=== PATIENT | female | born 1970 | race Caucasian/White ===

== ENCOUNTER 2022-02-05 12:57 | Emergency (ER) | payer OTHER, MEDICARE, SELFPAY ==
[2022-02-05 13:18] VITALS: BP 111/57; PULSE 78; RESP 16; TEMP 36.1; O2SAT 100; BMI 18.6
--- NOTE | 2022-02-05 13:53 | CRLHL7_ITS ---
For Patients: As a result of the Century Cures Act, medical imaging exams and procedure reports are released immediately into your electronic medical record. You may view this report before your referring provider. If you have questions, please contact your health care provider. Indication: Left lower extremity weakness Technique: Noncontrast head CT Comparison: No comparison Findings: Axial noncontrast images through the brain parenchyma demonstrates no acute intracranial hemorrhage or mass. No midline shift. No abnormal extra-axial air fluid collections are seen. Skull and scalp appears unremarkable. Impression: 1. No acute intracranial hemorrhage or mass. Please note that all CT scans at this facility use dose modulation, iterative reconstruction, and/or weight-based dosing when appropriate to reduce radiation dose to as low as reasonably achievable. Dictated by Silvina Eugene MD @ 02/05/2022 3:23:58 PM (Electronically Signed)
--- NOTE | 2022-02-05 13:53 | CRLHL7_ITS ---
For Patients: As a result of the Century Cures Act, medical imaging exams and procedure reports are released immediately into your electronic medical record. You may view this report before your referring provider. If you have questions, please contact your health care provider. INDICATION: Left lower extremity weakness. COMPARISON: None. TECHNIQUE: Sagittal T1, T2, and STIR sequences. Axial T1 and T2 weighted sequences. FINDINGS: Normal vertebral body alignment. No fractures. No vertebral body loss of height. No evidence injury. No suspicious osseous lesions. Normal conus terminates at L1. T12-L1 L1-2 L2-3: No spinal canal or neural foraminal narrowing. L3-4: Mild annular bulge. No narrowing of spinal canal. No neural foraminal narrowing. L4-5: Annular bulge. No narrowing of spinal canal. No neural foraminal narrowing. Mild facet arthropathy. L5-S1: Disc degeneration posterior disc bulge. No narrowing of spinal canal. No impingement of the traversing S1 nerve roots. Facet arthropathy contributes to mild narrowing of the left neural foramen. No narrowing of the right neural foramen. Mild facet arthropathy. 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 Degenerative changes of the SI joints. Normal paraspinal soft tissues. No retroperitoneal adenopathy. IMPRESSION: 1. Normal alignment. No fractures. 2. Mild lumbar spondylosis. 3. At L5-S1, mild narrowing of the left neuroforamen. 4. No spinal canal or neural foraminal narrowing at the remaining levels Dictated by Linden Hopper MD @ 02/05/2022 4:58:48 PM (Electronically Signed)
--- NOTE | 2022-02-05 14:42 | ED.GENADULT ---
HPI - General Adult General Time Seen by Provider: 14:00 Date Seen: 02/05/22 Chief complaint: Extremity Pain/Injury, Lower Stated complaint: Numb/limp left leg Time Seen by Provider: 02/05/22 13:36 Source: patient and family Mode of arrival: ambulatory Limitations: no limitations History of Present Illness HPI narrative: Carol is a very pleasant 51-year-old female with a history of peripheral neuropathy as well as possible stroke who comes to the emergency room for evaluation regarding weakness of the left leg. Upon further discussion patient notes that she has chronic peripheral neuropathy. On WednesdayJanuary 31 she began noticing that her left foot was occasionally dragging and that she had weakness that was new. She states that has progressively gotten worse and she has nearly tripped because of this. She actually notes that she has no pain in her foot which she usually does. She has chronically decreased sensation from the knees down bilaterally. She talked to her neurologist at the [facility] who told her to come to the emergency room. Carol notes no headache, head trauma. She has had some neck pain over the past few days but states that is not new for her. She denies any new upper extremity symptoms. No new loss of bowel or bladder control or recent falls. She has not had fever but has chronic chills. She really has no new back pain. Patient tells me that she has neuropathy secondary to a poor diet. However I do note in previous records that she had a history of alcoholism. She tells me that she has not had a drink in a year. It appears that she was developing hepato renal syndrome 1 year ago. She also had ascites at that time. Onset (ago): day(s) Location: left and lower extremity Radiation: non-radiation Associated symptoms: denies other symptoms Treatments prior to arrival: none Related Data Home Medications Medication Instructions Recorded Confirmed THC 02/05/22 levetiracetam 1,000 mg tablet mg PO 02/05/22 levothyroxine 50 mcg tablet mcg 02/05/22 magnesium oxide 400 mg (241.3 mg mg 02/05/22 magnesium) tablet melatonin 3 mg capsule 3 mg PO HS PRN 02/05/22 02/05/22 omeprazole 40 mg capsule,delayed mg 02/05/22 release pregabalin 50 mg capsule mg 02/05/22 rifaximin 550 mg tablet (Xifaxan) 550 mg PO BID 02/05/22 02/05/22 Allergies Allergy/AdvReac Type Severity Reaction Status Date / Time cephalexin Allergy Severe Anaphylaxis Unverified 02/05/22 13:18 [id number] Reductase Allergy Severe Unverified 02/05/22 13:18 Inhibitor Pertussis Vaccines Allergy Intermediate Unverified 02/05/22 13:18 Sulfa (Sulfonamide Allergy Intermediate Hives Verified 02/05/22 13:18 Antibiotics) latex Allergy Mild Rash Unverified 02/05/22 13:18 duloxetine Allergy Unknown Unverified 02/05/22 13:18 gabapentin AdvReac Mild Unverified 02/05/22 13:18 Review of Systems Status of ROS: Reports: 10 or more systems reviewed and unremarkable except as noted in History and below Narrative: Patient denies recent fever, cough cold congestion. She has not had any vomiting or diarrhea. [facility] Medical History (Updated 02/05/22 @ 17:32 by Sapna Quintana MD) Abdominal bloating Acute on chronic diastolic (congestive) heart failure Alcohol abuse Ataxia Bilateral myopia Cirrhosis of liver CKD (chronic kidney disease) stage 2, GFR 60-89 ml/min Coccyx pain Cyst, ovarian Dental decay Diffuse connective tissue disease Disturbance in sleep behavior Dysthymic disorder Ecchymosis Edentulous Essential hypertension Fibroid Fibromyalgia Folate deficiency Generalized anxiety disorder Generalized muscle weakness GERD (gastroesophageal reflux disease) Hemorrhage into subarachnoid space of neuraxis Hypertension Hypothyroidism Lipodystrophy Malnutrition MDD (major depressive disorder) Mediastinal lymphadenopathy Menorrhagia Metabolic encephalopathy Migraine Mixed anxiety and depressive disorder Myalgia and myositis Nicotine dependence Obstructive sleep apnea Occipital headache Partial anomalous pulmonary venous return Peripheral nerve disease Peripheral neuropathy Presbyopia Primary insomnia Right ventricular enlargement Sarcoidosis of lung with sarcoidosis of lymph nodes Secundum ASD Seizures, post-traumatic Sensory ganglionopathy Steatosis of liver Subdural hemorrhage Tachycardia Tear film insufficiency Thiamine deficiency neuropathy Tinea corporis Uterine leiomyoma Vitamin B12 deficiency Vitamin D deficiency Surgical History History of appendectomy Hx of hernia repair Social History Smoking Status: Current every day smoker What tobacco products do you use: cigarettes Do you use any of these nicotine containing products: None Second hand tobacco smoke exposure: Yes How often do you have a drink containing alcohol: never How often do you have six or more drinks on one occasion: Never AUDIT-C Alcohol total score: 0 Non-prescribed substance use: marijuana (any form) Non-prescribed substance use details: THC pills Exam Const: Vital Signs, click to edit/add: Vital Signs - 24 hr 02/05/22 13:18 02/05/22 15:25 02/05/22 16:00 Temperature 96.9 F L Pulse Rate [Right Pulse Oximeter] 78 70 67 Respiratory Rate 16 16 Blood Pressure [Le ft Upper Arm] 111/57 L 106/66 106/69 Pulse Oximetry 100 97 96 Documenting provider has reviewed patient's vital signs: yes Common normals: no apparent distress, oriented x3 and no limitations General appearance: cooperative and comfortable Nutritional appearance: thin HENMT: Common normals: normocephalic, head/scalp atraumatic and external ears normal Head and scalp: normocephalic and atraumatic External ear: external ears normal Other: Eyebrow raise smile and tongue all within normal limits no neurological deficits. Eye: Common normals: PERRL, EOMs intact bilaterally and conjunctivae normal General eye: normal appearance of both eyes Conjunctiva: conjunctiva(e) normal Pupil: PERRL Neck & C-Spine: Common normals: full ROM, no lymphadenopathy and supple Cervical spine: cervical ROM normal Lymph: Lymphatic: no lymphadenopathy noted Resp: Common normals: normal respiratory effort and clear to auscultation bilaterally Effort & inspection: able to speak in complete sentences Auscultation: clear to auscultation bilaterally Cardio: Common normals: regular rate and regular rhythm Rate: regular rate Rhythm: regular rhythm Heart sounds: murmur GI: Common normals: Normal to inspection, nondistended, normoactive bowel sounds present Back & Pelvis: Common normals: no thoracic nor lumbar tenderness Neuro: Common normals: oriented x3 Gait (neuro): unable to assess gait Sensory exam: extremities (Patient has decreased sensation on the lower legs bilaterally left greater ) Pupil exam: Normal pupillary reactivity/response: bilateral Other: Patient has slightly decreased hip flexion on the left but is able to raise her leg off the bed for 5 seconds. Extension and flexion intact of the lower extremities with very subtle decreased strength on the left at the ankle. patient has only 2 to 3+ strength with left dorsiflexion compared to the right DTRs at the knees 1+ absent at the ankles questionable 1 beat of clonus on the left Babinski downgoing upper extremity strength and motor intact with 1 to 2+ DTRs that are symmetrical. Psych: Common normals: thought process normal and speech normal Speech: normal speech Mood and affect: euthymic mood Thought process: normal thought process Insight: insight good Judgement: judgment good Skin: Trauma: no lacerations or abrasions Course Course Hospital Course: At this time patient presents with progressive weakness at the left ankle with markedly decreased left ankle Sampson flexion. Differential diagnosis includes stroke but is also includes a lumbar radiculopathy nutritional deficiency or spinal mass. We will obtain laboratory values to include a CBC, comprehensive panel, CRP and sed rate. I would also collect a urinalysis and obtain a head CT as well as lumbar MRI. Reevaluation(s) Reevaluation #1: Patient has been resting comfortably. At this time MRI of the lumbar spine does show degenerative disease but no significant compression of the L5 or S1 Which would explain her footdrop. We are attempting to contact her neurologist at the [facility]. Head CT without evidence of stroke. Time: 15:00 Reevaluation #2: At this time we have not heard from patient's neurologist. She is presenting with foot drop with out any L5 her S1 nerve root compromise noted on lumbar MRI. Her head CT is without evidence of acute stroke. As this has been a ongoing for at least 5 days I will allow the patient to go home. Would recommend follow-up with her neurologist and contacting them tomorrow as I suspect she will likely need EMG and further evaluation. If she has worsening or onset of new symptoms she will proceed directly to hospital where her specialists work. Of course she is always welcome to return to [facility]. Discussed also her pancytopenia. She does have a follow-up appointment with heme Onc in the next few weeks. She and her feel comfortable with our plan and will return as needed. Time: 17:57 Vital Signs Vital signs: Initial Vital Signs Temperature 96.9 F L 02/05/22 13:18 Temperature Source Temporal Artery Scan 02/05/22 13:18 Pulse Rate 78 02/05/22 13:18 Respiratory Rate 16 02/05/22 13:18 Blood Pressure 111/57 L 02/05/22 13:18 Blood Pressure Mean 75 02/05/22 13:18 Blood Pressure Position Supine 02/05/22 13:18 Pulse Oximetry 100 02/05/22 13:18 Oxygen Delivery Method 02/05/22 13:18 Vital Signs Temperature 96.9 F L 02/05/22 13:18 Pulse Rate 78 02/05/22 13:18 Respiratory Rate 16 02/05/22 13:18 Blood Pressure 111/57 L 02/05/22 13:18 Pulse Oximetry 100 02/05/22 13:18 Temperature 96.9 F L 02/05/22 13:18 Pulse Rate 67 02/05/22 16:00 Respiratory Rate 16 02/05/22 15:25 Blood Pressure 106/69 02/05/22 16:00 Pulse Oximetry 96 02/05/22 16:00 Medical Decision Making MDM Narrative Medical decision making narrative: At this time we have ruled out any evidence of stroke with a negative CT, ruled out nerve compromise with an MRI of the lumbar spine. Certainly this could be progression of her neuropathy although it is a symmetrical. I do not identify any red flag symptoms at this time and therefore patient will be discharged home. Medical Records Medical records reviewed: Yes I reviewed the patient's medical records Lab Data Lab results reviewed: Yes I reviewed the patient's lab results Labs: Lab Results 02/05/22 02/05/22 02/05/22 Range/Units 14:54 14:55 14:55 WBC 3.93 L (4.50-11.00) K/uL RBC 3.14 L (4.00-5.20) m/uL Hgb 9.9 L (12.0-16.0) gm/dL Hct 28.6 L (33.0-51.0) % MCV 91 (80-100) fL MCH 32 (26-34) pg MCHC 35 (32-36) gm/dL RDW Coeff of Susanna 13.8 (11.5-15.5) % Plt Count 96 L (140-440) K/uL Neut % (Auto) 49.9 (42.0-72.0) % Lymph % (Auto) 40.5 (20-44) % Mellette % (Auto) 6.6 (0.0-11.0) % Eos % (Auto) 2.5 (0.0-7.0) % Baso % (Auto) 0.0 (0.0-3.0) % Neut # (Auto) 2.00 (1.7-7.0) K/uL Lymph # (Auto) 1.60 (0.90-2.90) K/uL Mellette # (Auto) 0.30 (0.00-0.90) K/UL Eos # (Auto) 0.10 (0.00-0.50) K/uL Baso # (Auto) 0.00 (0.00-0.30) K/uL Abs Immat Gran (auto) 0.02 (0.00-0.30) K/uL ESR 7 (2-20) mm/hr Sodium 139 (135-149) mmol/L Potassium 3.9 (3.6-5.1) mmol/L Chloride 111 (96-114) mmol/L Carbon Dioxide 24 (20-32) mmol/L BUN 16 (7-30) mg/dL Creatinine 0.9 (0.5-1.5) mg/dL Estimated Creat Clear 60.49 Glucose 105 (60-115) mg/dL Calcium 9.2 (8.4-10.6) mg/dL Total Bilirubin 3.3 H (0.1-1.5) mg/dL AST 45 H (12-35) U/L ALT 20 (4-35) U/L Alkaline Phosphatase 89 (40-150) U/L C-Reactive Protein < 0.5 L (0.5-1.0) mg/dL Total Protein 6.6 (6.0-8.3) g/dL Albumin 3.9 (3.3-5.0) g/dL Imaging Data MRI: Attestation: I have reviewed the pertinent imaging results. My impression: MRI LUMBAR SPINE WITHOUT CONTRAST Radiologist's impression: MRI SHOWS NO SIGNIFICANT NERVE ROOT COMPRESSION OF L5 OR S1. CT scan - head: Attestation: I have reviewed the pertinent imaging results. My impression: NO EVIDENCE OF ACUTE INTRACRANIAL BLEED. Radiologist's impression: NEGATIVE FOR STROKE HER ACUTE INTRACRANIAL BLEED. Discharge Plan Discharge Clinical Impression: Pancytopenia, Foot-drop Condition: Unchanged Additional Instructions: follow-up with your primary MD for ongoing attention to your blood counts. Your hemoglobin was 9.9 today and platelets were 96,000. your white count was 3.93. Contact your neurologist tomorrow to let them know that you have left foot drop. May need further evaluation and/or and EMG. Proceed to the [facility] for worsening symptoms or return to the emergency room in [place] as needed. Activity Level: Activity as Tolerated Prescriptions: No Action omeprazole 40 mg capsule,delayed release(DR/EC) 0RF magnesium oxide 400 mg (241.3 mg magnesium) tablet 0RF levothyroxine 50 mcg tablet 0RF pregabalin 50 mg capsule 0RF levetiracetam 1,000 mg tablet PO 0RF Xifaxan 550 mg tablet 550 mg PO BID 0RF melatonin 3 mg capsule 3 mg PO HS PRN0RF THC 0RF Stand Alone Forms: [facility] Info Instructions
[2022-02-05 15:10] LABS: Eosinophils Percent Auto 2.5 % (0.0-7.0); Hematocrit 28.6 % (33.0-51.0); Hemoglobin* 9.9 gm/dL (12.0-16.0); Immature Granulocytes Abs Auto 0.02 K/uL (0.00-0.30); Lymphocytes Percent Auto 40.5 % (20-44); Mean Corpuscular HGB Conc 35 gm/dL (32-36); Mean Corpuscular Hemoglobin 32 pg (26-34); Mean Corpuscular Volume 91 fL (80-100); Monocytes Percent Auto 6.6 % (0.0-11.0); Neutrophils Percent Auto 49.9 % (42.0-72.0); Platelet Count* 96 K/uL (140-440); RDW Coefficient of Variation % 13.8 % (11.5-15.5); Red Blood Count 3.14 m/uL (4.00-5.20); White Blood Count* 3.93 K/uL (4.50-11.00)
[2022-02-05 15:13] LABS: Slide Review Reflex No
[2022-02-05 15:25] VITALS: BP 106/66; PULSE 70; RESP 16; O2SAT 97
[2022-02-05 15:27] LABS: Albumin* 3.9 g/dL (3.3-5.0); Chloride* 111 mmol/L (96-114); Sodium* 139 mmol/L (135-149)
[2022-02-05 15:28] LABS: Potassium* 3.9 mmol/L (3.6-5.1)
[2022-02-05 15:30] LABS: Creatinine* 0.9 mg/dL (0.5-1.5); Est. Creatinine Clearance* 60.49; Estimated Glomerular Filt Rate 76.92
[2022-02-05 15:31] LABS: Alanine Aminotransferase* 20 U/L (4-35); Alkaline Phosphatase* 89 U/L (40-150); Aspartate Amino Transferase* 45 U/L (12-35); Bilirubin Total* 3.3 mg/dL (0.1-1.5); Blood Urea Nitrogen* 16 mg/dL (7-30); Carbon Dioxide* 24 mmol/L (20-32); Glucose* 105 mg/dL (60-115); Total Protein* 6.6 g/dL (6.0-8.3)
[2022-02-05 15:32] LABS: Calcium* 9.2 mg/dL (8.4-10.6)
[2022-02-05 16:00] VITALS: BP 106/69; PULSE 67; O2SAT 96
[2022-02-05 16:13] LABS: C Reactive Protein* < 0.5 mg/dL (0.5-1.0)
[2022-02-05 16:27] LABS: Erythrocyte SedimentationRate* 7 mm/hr (2-20)
[2022-02-05 17:30] VITALS: BP 100/64
[2022-02-05 18:14] VITALS: BP 100/64; RESP 16
== END 2022-02-05 18:15 ==
PROVIDERS: Emergency Provider Family Medicine
DX: M21.372 Foot drop, left foot (principal); D61.818 Other pancytopenia
CPT/HCPCS: 36415; 70450; 72148; 80053; 85025; 85651; 86140; 99284; 99285

== ENCOUNTER 2022-05-12 07:49 | Emergency (ER) | payer OTHER, MEDICARE, SELFPAY ==
[2022-05-12 08:08] VITALS: BP 123/83; PULSE 74; RESP 18; TEMP 36; O2SAT 98; BMI 18.4
--- NOTE | 2022-05-12 08:31 | CRLHL7_ITS ---
For Patients: As a result of the Cures Act, medical imaging exams and procedure reports are released immediately into your electronic medical record. You may view this report before your referring provider. If you have questions, please contact your health care provider. Indication: Redness, rule out fracture Comparison: None available. Technique: AP, lateral, and oblique views right great toe were obtained. Findings: There is no displaced fracture or dislocation. There is marked hallux deformity of the 1st digit with moderate bunion formation. There is fusiform soft tissue swelling with demonstration of a radiopaque metallic foreign body within the plantar medial soft tissues. Impression: Demonstration of a radiopaque metallic foreign body within the plantar soft tissues projecting over the proximal 1st phalanx with associated soft tissue swelling. No evidence of displaced fracture. Dictated by Mike Wayne MD @ 05/12/2022 9:18:05 AM (Electronically Signed)
--- NOTE | 2022-05-12 09:55 | ED.LOWEXIN ---
HPI - Extremity Injury (Lower) General Date Seen: 05/12/22 Chief Complaint: Extremity Pain/Injury, Lower Stated Complaint: Toe infection Time Seen by Provider: 05/12/22 07:55 Source: patient and family Mode of arrival: ambulatory Limitations: no limitations History of Present Illness HPI Narrative: Patient is a very nice 51-year-old female who presents here with right great toe discomfort, and redness. She thinks she may have an infection. This is been for last 4-5 days, she has have a history of neuropathy, can not really feel her toe, she does not remember getting anything in her foot, no history of trauma, she has had no fevers chills or sweats, or anything else. She has not seen anyone, for this. Related Data Home Medications Medication Instructions Recorded Confirmed THC 02/05/22 levetiracetam 1,000 mg tablet mg PO 02/05/22 levothyroxine 50 mcg tablet mcg 02/05/22 magnesium oxide 400 mg (241.3 mg mg 02/05/22 magnesium) tablet melatonin 3 mg capsule 3 mg PO HS PRN 02/05/22 02/05/22 omeprazole 40 mg capsule,delayed mg 02/05/22 release pregabalin 50 mg capsule mg 02/05/22 rifaximin 550 mg tablet (Xifaxan) 550 mg PO BID 02/05/22 02/05/22 Previous Rx's Medication Instructions Recorded amoxicillin 875 mg-potassium 1 tab PO BID #20 tabs 05/12/22 clavulanate 125 mg tablet Allergies Allergy/AdvReac Type Severity Reaction Status Date / Time cephalexin Allergy Severe Anaphylaxis Unverified 02/05/22 13:18 Eztpsau-[id number] Reductase Allergy Severe Unverified 02/05/22 13:18 Inhibitor Pertussis Vaccines Allergy Intermediate Unverified 02/05/22 13:18 Sulfa (Sulfonamide Allergy Intermediate Hives Verified 02/05/22 13:18 Antibiotics) latex Allergy Mild Rash Unverified 02/05/22 13:18 duloxetine Allergy Unknown Unverified 02/05/22 13:18 gabapentin AdvReac Mild Unverified 02/05/22 13:18 Review of Systems Status of ROS: Reports: 6 or more systems reviewed and unremarkable except as noted in History and below [facility] Medical History Abdominal bloating Acute on chronic diastolic (congestive) heart failure Alcohol abuse Ataxia Bilateral myopia Cirrhosis of liver CKD (chronic kidney disease) stage 2, GFR 60-89 ml/min Coccyx pain Cyst, ovarian Dental decay Diffuse connective tissue disease Disturbance in sleep behavior Dysthymic disorder Ecchymosis Edentulous Essential hypertension Fibroid Fibromyalgia Folate deficiency Generalized anxiety disorder Generalized muscle weakness GERD (gastroesophageal reflux disease) Hemorrhage into subarachnoid space of neuraxis Hypertension Hypothyroidism Lipodystrophy Malnutrition MDD (major depressive disorder) Mediastinal lymphadenopathy Menorrhagia Metabolic encephalopathy Migraine Mixed anxiety and depressive disorder Myalgia and myositis Nicotine dependence Obstructive sleep apnea Occipital headache Partial anomalous pulmonary venous return Peripheral nerve disease Peripheral neuropathy Presbyopia Primary insomnia Right ventricular enlargement Sarcoidosis of lung with sarcoidosis of lymph nodes Secundum ASD Seizures, post-traumatic Sensory ganglionopathy Steatosis of liver Subdural hemorrhage Tachycardia Tear film insufficiency Thiamine deficiency neuropathy Tinea corporis Uterine leiomyoma Vitamin B12 deficiency Vitamin D deficiency Surgical History History of appendectomy Hx of hernia repair Social History Smoking Status: Current every day smoker What tobacco products do you use: cigarettes Do you use any of these nicotine containing products: None Second hand tobacco smoke exposure: Yes How often do you have a drink containing alcohol: never How often do you have six or more drinks on one occasion: Never AUDIT-C Alcohol total score: 0 Non-prescribed substance use: marijuana (any form) Non-prescribed substance use details: THC pills Exam Narrative: Exam Narrative: On examination she is a nice lady, no apparent distress, her right great toe shows some redness around her nail, with obvious onychogryphosis. The nail is lifting up, there is no tenderness over the proximal part of the great toe, or onto the ball of foot, she does have some issues with osteoarthritis of her right foot and to a greater extent her left foot, were toes are curling up, and she is walking on her metatarsal heads. Her pulses are normal, sensations normal, the redness extends around the nail bed itself, but really no evidence of any purulence or anything that we can [place] or drain. Const: Vital Signs, click to edit/add: Vital Signs - 24 hr 05/12/22 08:08 Temperature 96.8 F L Pulse Rate [Pulse Oximeter] 74 Respiratory Rate 18 Blood Pressure [Ri ght Upper Arm] 123/83 Pulse Oximetry 98 Oxygen Delivery Me thod Room Air Course Vital Signs Vital signs: Initial Vital Signs Temperature 96.8 F L 05/12/22 08:08 Temperature Source Temporal Artery Scan 05/12/22 08:08 Pulse Rate 74 05/12/22 08:08 Respiratory Rate 18 05/12/22 08:08 Blood Pressure 123/83 05/12/22 08:08 Blood Pressure Mean 96 05/12/22 08:08 Blood Pressure Position Sitting 05/12/22 08:08 Pulse Oximetry 98 05/12/22 08:08 Oxygen Delivery Method 05/12/22 08:08 Vital Signs Temperature 96.8 F L 05/12/22 08:08 Pulse Rate 74 05/12/22 08:08 Respiratory Rate 18 05/12/22 08:08 Blood Pressure 123/83 05/12/22 08:08 Pulse Oximetry 98 05/12/22 08:08 Oxygen Delivery Method 05/12/22 08:08 Temperature 96.8 F L 05/12/22 08:08 Pulse Rate 74 05/12/22 08:08 Respiratory Rate 18 05/12/22 08:08 Blood Pressure 123/83 05/12/22 08:08 Pulse Oximetry 98 05/12/22 08:08 Oxygen Delivery Method 05/12/22 08:08 MDM - Extremity Injury (Lower) MDM Narrative Medical decision making narrative: Differential diagnosis here includes infection, such as cellulitis, onchogryphosis, foreign body, Medical Records Attestation: I reviewed the patient's medical records. Imaging Data Toe x-ray: Attestation: I have reviewed the pertinent imaging results. My impression: There appears to be no evidence of fracture, or osteomyelitis, there is evidence of a foreign body,, that she is outside the area redness or tenderness. Radiologist's impression: Patient: RONALD RICE MELLO Facility: [facility] Site . Site : [id number] Study: XRay Extremity Right GREAT TOE 3 VIEWS, PORTABLE-05/12/2022 8:55:22 AM Ordering Physician: Seper Branden Final Report: Indication: Redness, rule out fracture Comparison: None available. Technique: AP, lateral, and oblique views right great toe were obtained. Findings: There is no displaced fracture or dislocation. There is marked hallux deformity of the 1st digit with moderate bunion formation. There is fusiform soft tissue swelling with demonstration of a radiopaque metallic foreign body within the plantar medial soft tissues. Impression: Demonstration of a radiopaque metallic foreign body within the plantar soft tissues projecting over the proximal 1st phalanx with associated soft tissue swelling. No evidence of displaced fracture. Dictated by Mike Wayne MD @ 05/12/2022 9:18:05 AM (Electronic Signature) Discharge Plan Discharge Clinical Impression: History of neuropathy, Fungal infection of toenail, Foreign body (FB) in soft tissue, Infection of toe Patient Disposition: Home w/ Parent or Adult Condition: Stable Additional Instructions: Home rest use of antibiotics as directed, follow-up in a reasonable part-time with Dr. Hines , over at the [facility], he has a fiber optic assembly worker, and deals with this. Increasing redness coming up your leg, other issues, then come back, I think the foreign body is been there for a while. Please schedule a follow up appointment at the [facility] within the week. Let the answering patient scheduler know you need to follow up with a funding specialist. [facility] [address] [place] [address] Prescriptions: New amoxicillin-pot clavulanate 875-125 mg tablet 1 tab PO BID Qty: 20 0RF Rx Instructions: toe infection, has taken amoxicillin without a problem in the past No Action omeprazole 40 mg capsule,delayed release(DR/EC) magnesium oxide 400 mg (241.3 mg magnesium) tablet levothyroxine 50 mcg tablet pregabalin 50 mg capsule levetiracetam 1,000 mg tablet PO Xifaxan 550 mg tablet 550 mg PO BID melatonin 3 mg capsule 3 mg PO HS PRN THC Follow Up/Referrals: Provider,Not a Local [Primary Care Provider] - Lg Hines DPM [Staff Physician] - Stand Alone Forms: [facility] Info Instructions
== END 2022-05-12 09:55 | disposition home or self-care (01) ==
PROVIDERS: Emergency Provider Family Medicine
DX: B35.1 Tinea unguium (principal); M79.5 Residual foreign body in soft tissue; G62.9 Polyneuropathy, unspecified
CPT/HCPCS: 73660; 99283

== ENCOUNTER 2023-09-11 12:18 | Emergency (ER) | payer BC, MEDICARE, SELFPAY ==
[2023-09-11 12:35] VITALS: BP 117/79; PULSE 83; RESP 18; TEMP 36.6; O2SAT 99; BMI 18.8
--- NOTE | 2023-09-11 13:41 | CRLHL7_ITS ---
For Patients: As a result of the Century Cures Act, medical imaging exams and procedure reports are released immediately into your electronic medical record. You may view this report before your referring provider. If you have questions, please contact your health care provider. INDICATION: Fall, loss of consciousness. COMPARISON: 02/05/2022. TECHNIQUE: Noncontrast CT head. FINDINGS: Mild scalp swelling adjacent to the right frontal calvarium likely secondary to trauma. No underlying fracture. Normal brain parenchymal morphology. No acute intracranial hemorrhage, acute infarct, focal edema, mass effect, or fracture. No midline shift. No abnormal ventricular dilatation. Normal calvarium and skull base. Visualized paranasal sinuses and mastoid air cells are clear. Normal orbits bilaterally. IMPRESSION: 1. No acute intracranial abnormality. Please note that all CT scans at this facility use dose modulation, iterative reconstruction, and/or weight-based dosing when appropriate to reduce radiation dose to as low as reasonably achievable. Dictated by Linden Hopper MD @ 09/11/2023 2:01:55 PM (Electronically Signed)
--- NOTE | 2023-09-11 13:41 | ED_ITS ---
HPI - General Adult General Chief complaint: Head Injury/Pain Stated complaint: fall, bump on head Time Seen by Provider: 09/11/23 12:48 History of Present Illness HPI narrative: This 53-year-old female comes in reporting head injury from a fall that occurred prior to arrival. She states that she does not remember how things happened and thinks that she might have tripped on something. She fell forward and hit the right front of her forehead on the floor. She was able to get up after this event. She does have a small hematoma with some erythema on her forehead but no sign of skin injury otherwise. As she has not had any vomiting and does not complain of headache. She is not on any anticoagulants. Related Data Home Medications Medication Instructions Recorded Confirmed THC 02/05/22 09/11/23 levetiracetam 1,000 mg tablet 1,000 mg PO Q12H 02/05/22 09/11/23 levothyroxine 50 mcg tablet 50 mcg .Route .COMPLEX 02/05/22 09/11/23 magnesium oxide 400 mg (241.3 mg 400 mg 02/05/22 magnesium) tablet melatonin 3 mg capsule 3 mg PO HS PRN 02/05/22 09/11/23 omeprazole 40 mg capsule,delayed 40 mg 02/05/22 release pregabalin 50 mg capsule 50 mg Q12H 02/05/22 rifaximin 550 mg tablet (Xifaxan) 550 mg PO BID 02/05/22 09/11/23 Repatha Syringe 09/11/23 folic acid 400 mcg tablet 0.4 mg PO DAILY 09/11/23 09/11/23 Previous Rx's Medication Instructions Recorded amoxicillin 875 mg-potassium 1 tab PO BID #20 tabs 05/12/22 clavulanate 125 mg tablet Allergies Allergy/AdvReac Type Severity Reaction Status Date / Time cephalexin Allergy Severe Anaphylaxis Unverified 02/05/22 13:18 [id number]-[id number]-ByK Reductase Allergy Severe Unverified 02/05/22 13:18 Inhibitor Pertussis Vaccines Allergy Intermediate Unverified 02/05/22 13:18 Sulfa (Sulfonamide Allergy Intermediate Hives Verified 02/05/22 13:18 Antibiotics) latex Allergy Mild Rash Unverified 02/05/22 13:18 duloxetine Allergy Unknown Unverified 02/05/22 13:18 gabapentin AdvReac Mild Unverified 02/05/22 13:18 Review of Systems Status of ROS: Reports: 10 or more systems reviewed and unremarkable except as noted in History and below Narrative: Constitutional: No fevers, no weight gain or loss. Eyes: No discharge. No vision changes. HENT: No congestion, no sore throat, no ear pain. Cardiovascular: No chest pain, no palpitations. Respiratory: No shortness of breath, no wheezes, no cough. Gastrointestinal: No abdominal pain, no vomiting, no diarrhea. Genitourinary: No dysuria, no hematuria. Musculoskeletal: Normal range of motion. Skin: No rashes, no pruritis. Neurological: No dizziness, weakness, sensory change, speech change. Endo/Heme/Allergies: No bruising or bleeding. No polydipsia. Pysch: no suicidality, no anxiety, no insomnia. All other systems reviewed and are negative. [facility] Medical History CKD (chronic kidney disease) stage 2, GFR 60-89 ml/min ?N18.2 - Chronic kidney disease, stage 2 (mild) (ICD-10) Ecchymosis ?R58 - Hemorrhage, not elsewhere classified (ICD-10) Subdural hemorrhage ?I62.00 - Nontraumatic subdural hemorrhage, unspecified (ICD-10) Seizures, post-traumatic ?R56.1 - Post traumatic seizures (ICD-10) Tachycardia ?R00.0 - Tachycardia, unspecified (ICD-10) Abdominal bloating ?R14.0 - Abdominal distension (gaseous) (ICD-10) Acute on chronic diastolic (congestive) heart failure ?I50.33 - Acute on chronic diastolic (congestive) heart failure (ICD-10) Cirrhosis of liver ?K74.60 - Unspecified cirrhosis of liver (ICD-10) Metabolic encephalopathy ?G93.41 - Metabolic encephalopathy (ICD-10) Edentulous ?K08.109 - Complete loss of teeth, unspecified cause, unspecified class (ICD- 10) Mixed anxiety and depressive disorder ?F41.8 - Other specified anxiety disorders (ICD-10) Generalized muscle weakness ?M62.81 - Muscle weakness (generalized) (ICD-10) Primary insomnia ?F51.01 - Primary insomnia (ICD-10) Lipodystrophy ?E88.1 - Lipodystrophy, not elsewhere classified (ICD-10) Tinea corporis ?B35.4 - Tinea corporis (ICD-10) Vitamin B12 deficiency ?E53.8 - Deficiency of other specified B group vitamins (ICD-10) Folate deficiency ?E53.8 - Deficiency of other specified B group vitamins (ICD-10) Diffuse connective tissue disease ?M35.9 - Systemic involvement of connective tissue, unspecified (ICD-10) Uterine leiomyoma ?D25.9 - Leiomyoma of uterus, unspecified (ICD-10) Hemorrhage into subarachnoid space of neuraxis ?I60.9 - Nontraumatic subarachnoid hemorrhage, unspecified (ICD-10) Steatosis of liver ?K76.0 - Fatty (change of) liver, not elsewhere classified (ICD-10) Peripheral nerve disease ?G62.9 - Polyneuropathy, unspecified (ICD-10) Cyst, ovarian ?N83.209 - Unspecified ovarian cyst, unspecified side (ICD-10) Obstructive sleep apnea ?G47.33 - Obstructive sleep apnea (adult) (pediatric) (ICD-10) Migraine ?G43.909 - Migraine, unspecified, not intractable, without status migrainosus (ICD-10) Hypertension ?I10 - Essential (primary) hypertension (ICD-10) Occipital headache ?R51.9 - Headache, unspecified (ICD-10) GERD (gastroesophageal reflux disease) ?K21.9 - Gastro-esophageal reflux disease without esophagitis (ICD-10) Disturbance in sleep behavior ?G47.9 - Sleep disorder, unspecified (ICD-10) MDD (major depressive disorder) ?F32.9 - Major depressive disorder, single episode, unspecified (ICD-10) Alcohol abuse ?F10.10 - Alcohol abuse, uncomplicated (ICD-10) Mediastinal lymphadenopathy ?R59.0 - Localized enlarged lymph nodes (ICD-10) Sensory ganglionopathy ?G54.9 - Nerve root and plexus disorder, unspecified (ICD-10) Secundum ASD ?Q21.1 - Atrial septal defect (ICD-10) Right ventricular enlargement ?I51.7 - Cardiomegaly (ICD-10) 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 - Partial anomalous pulmonary venous connection (ICD-10) Menorrhagia ?N92.0 - Excessive and frequent menstruation with regular cycle (ICD-10) 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 - Dry beriberi (ICD-10) Tear film insufficiency ?H04.129 - Dry eye syndrome of unspecified lacrimal gland (ICD-10) Presbyopia ?H52.4 - Presbyopia (ICD-10) Bilateral myopia ?H52.13 - Myopia, bilateral (ICD-10) Hypothyroidism ?E03.9 - Hypothyroidism, unspecified (ICD-10) Dental decay ?K02.9 - Dental caries, unspecified (ICD-10) Fibroid ?D21.9 - Benign neoplasm of connective and other soft tissue, unspecified (ICD-10) Vitamin D deficiency ?E55.9 - Vitamin D deficiency, unspecified (ICD-10) Coccyx pain ?M53.3 - Sacrococcygeal disorders, not elsewhere classified (ICD-10) Essential hypertension ?I10 - Essential (primary) hypertension (ICD-10) Dysthymic disorder ?F34.1 - Dysthymic disorder (ICD-10) Generalized anxiety disorder ?F41.1 - Generalized anxiety disorder (ICD-10) Malnutrition ?E46 - Unspecified protein-calorie malnutrition (ICD-10) Myalgia and myositis Fibromyalgia ?M79.7 - Fibromyalgia (ICD-10) Nicotine dependence ?F17.200 - Nicotine dependence, unspecified, uncomplicated (ICD-10) Ataxia ?R27.0 - Ataxia, unspecified (ICD-10) Sarcoidosis of lung with sarcoidosis of lymph nodes ?D86.2 - Sarcoidosis of lung with sarcoidosis of lymph nodes (ICD-10) Peripheral neuropathy ?G62.9 - Polyneuropathy, unspecified (ICD-10) Surgical History Hx of hernia repair ?Z98.890 - Other specified postprocedural states (ICD-10) ?Z87.19 - Personal history of other diseases of the digestive system (ICD-10) History of appendectomy ?Z90.49 - Acquired absence of other specified parts of digestive tract (ICD- 10) Social History Smoking Status: Current every day smoker What tobacco products do you use: cigarettes Do you use any of these nicotine containing products: None Second hand tobacco smoke exposure: Yes How often do you have a drink containing alcohol: never How often do you have six or more drinks on one occasion: Never AUDIT-C Alcohol total score: 0 Non-prescribed substance use: marijuana (any form) Non-prescribed substance use details: THC pills service: No Exam Narrative: Exam Narrative: Constitutional: Well-developed, well-nourished, no acute distress. HEENT: Small hematoma in the right forehead with no fluctuance. The skull beneath this area is easily palpable. Neck: Normal range of motion. Nontender. Supple. Heart: Regular. No murmurs. Normal rate. Intact distal pulses. Lungs: Clear to auscultation. No chest discomfort. No wheezes, rhonchi, or rales. Abdomen: Normal bowel sounds. Nontender. No rebound tenderness. Genitalia: Deferred. Back: No midline tenderness. Normal range of motion. Extremities: Normal range of motion. No injury. Skin: Intact. No rash. Warm. No erythema or pallor. Neurologic: No altered sensation. No weakness. Alert and oriented. Psychiatric: No suicidality. No anxiety or depression. No insomnia. Nursing notes and vitals signs are reviewed. Const: Vital Signs, click to edit/add: Vital Signs - 24 hr 09/11/23 12:35 Temperature 97.9 F Pulse Rate [Right Pulse Oximeter] 83 Respiratory Rate 18 Blood Pressure [Ri ght Upper Arm] 117/79 Pulse Oximetry 99 Oxygen Delivery Me thod Room Air Course Vital Signs Vital signs: Initial Vital Signs Temperature 97.9 F 09/11/23 12:35 Temperature Source Temporal Artery Scan 09/11/23 12:35 Pulse Rate 83 09/11/23 12:35 Respiratory Rate 18 09/11/23 12:35 Blood Pressure 117/79 09/11/23 12:35 Blood Pressure Mean 91 09/11/23 12:35 Blood Pressure Position Sitting 09/11/23 12:35 Pulse Oximetry 99 09/11/23 12:35 Oxygen Delivery Method Room Air 09/11/23 12:35 Vital Signs Temperature 97.9 F 09/11/23 12:35 Pulse Rate 83 09/11/23 12:35 Respiratory Rate 18 09/11/23 12:35 Blood Pressure 117/79 09/11/23 12:35 Pulse Oximetry 99 09/11/23 12:35 Oxygen Delivery Method Room Air 09/11/23 12:35 Temperature 97.9 F 09/11/23 12:35 Pulse Rate 83 09/11/23 12:35 Respiratory Rate 18 09/11/23 12:35 Blood Pressure 117/79 09/11/23 12:35 Pulse Oximetry 99 09/11/23 12:35 Oxygen Delivery Method Room Air 09/11/23 12:35 Medical Decision Making MDM Narrative Medical decision making narrative: This patient comes in reporting head injury as described above. She is not showing any sign of neurologic deficit and has no nausea or vomiting and no significant headache. She does have a small hematoma on her forehead. She is not on anticoagulants. A CT scan of the head is obtained and returns with no a cute intracranial abnormality. This was reassuring to the patient. She is okay to be discharged home and encouraged to use [id number] medicines as needed and directed. Imaging Data CT scan - head: Radiologist's impression: No acute intracranial abnormality. Discharge Plan Discharge Clinical Impression: Concussion with loss of consciousness Patient Disposition: Home, Self-Care Condition: Stable Additional Instructions: Increase activity as tolerated. Use [id number] medicines as needed and directed. Follow up with MD return if worsening. Prescriptions: No Action omeprazole 40 mg capsule,delayed release(DR/EC) 40 mg magnesium oxide 400 mg (241.3 mg magnesium) tablet 400 mg levothyroxine 50 mcg tablet 50 mcg .ROUTE .COMPLEX Rx Instructions: as prescribed pregabalin 50 mg capsule 50 mg Q12H levetiracetam 1,000 mg tablet 1,000 mg PO Q12H Xifaxan 550 mg tablet 550 mg PO BID melatonin 3 mg capsule 3 mg PO HS PRN (DME) THC See Rx Instructions .ROUTE .MEDSUPPLY Rx Instructions: as prescribed amoxicillin-pot clavulanate 875-125 mg tablet 1 tab PO BID Qty: 20 0RF Rx Instructions: toe infection, has taken amoxicillin without a problem in the past Repatha Syringe folic acid 400 mcg tablet 0.4 mg PO DAILY Follow Up/Referrals: Rio Jaquez MD [Primary Care Provider] - Stand Alone Forms: MyHealth Info Instructions
== END 2023-09-11 14:17 | disposition home or self-care (01) ==
PROVIDERS: Emergency Provider Emergency Medicine Emergency Medical Services
DX: S06.0X1A Concussion with loss of consciousness of 30 minutes or less, initial encounter (principal); W01.0XXA Fall on same level from slipping, tripping and stumbling without subsequent striking against object, initial encounter
CPT/HCPCS: 70450; 99283; 99284

== ENCOUNTER 2024-02-08 22:40 | Outpatient (CLI) | payer BC, MEDICARE, SELFPAY | END 2024-02-08 22:41 | disposition home or self-care (01) | LOC: AMB 02-14 17:44 | PROVIDERS: Visit Provider Emergency Medicine | DX: R55 Syncope and collapse (principal) | CPT/HCPCS: A0425; A0427 ==

== ENCOUNTER 2024-05-14 16:45 | Emergency (ER) | payer BC, MEDICARE, SELFPAY ==
[2024-05-14 17:13] VITALS: BP 123/78; RESP 18; TEMP 36.7; O2SAT 97; BMI 18.4
--- NOTE | 2024-05-14 18:24 | CRLHL7_ITS ---
For Patients: As a result of the Century Cures Act, medical imaging exams and procedure reports are released immediately into your electronic medical record. You may view this report before your referring provider. If you have questions, please contact your health care provider. Indication: ABD PAIN WORSE ON THE ERIGHT SIDE, HISTORY OF CIRRHOSI Technique: CT Abdomen/Pelvis W/ 56CC ISOVUE [id number] Please note that all CT scans at this facility use dose modulation, iterative reconstruction, and/or weight-based dosing when appropriate to reduce radiation dose to as low as reasonably achievable. Comparison: Ultrasound 12/02/2020 Findings: Mild areas of dependent scarring/atelectasis in both lung bases. No pleural effusion. Somewhat lobular contour of the liver along with decreased echotexture. Water attenuation cyst in the right hepatic lobe posterior segment measures 7.5 millimeters. Subcentimeter cyst is present more centrally within the right hepatic lobe. Splenomegaly with the spleen measuring 12.9 cm. Adrenal glands normal. No hydronephrosis. No pancreatic calcifications. Mild ectasia of the distal pancreatic duct. The gallbladder is moderately distended without calcified gallstones or biliary obstruction. Incomplete distension of the stomach results in some prominence of the gastric mucosa. No small bowel obstruction. Recanalization of the periumbilical vein. Upper abdominal varices particularly involving the gastrohepatic ligament. No portal vein thrombus. The portal vein is quite tortuous. No aortic dissection or aneurysm. Few scattered subcentimeter retroperitoneal lymph nodes. Excess stool within the right side of the colon. Moderate colonic stool elsewhere. Bladder normal. Bilateral tubal occlusion devices. Small anterior intramural fibroid. Mild chronic wedging of the T12 superior endplate. Impression: Excess stool throughout the colon particularly involving the right-sided colon where there is fecal impaction in the cecum. No mechanical bowel obstruction or inflammatory change. Cirrhotic liver with splenomegaly and portal hypertension with prominent tortuosity of the portal vein, upper abdominal varices and recanalization of the periumbilical vein. No portal venous clot. Please note that all CT scans at this facility use dose modulation, iterative reconstruction, and/or weight-based dosing when appropriate to reduce radiation dose to as low as reasonably achievable. Dictated by Timmy Chambers MD @ 05/14/2024 7:37:13 PM (Electronically Signed)
[2024-05-14] MEDS: MORPHINE 4 MG/ML INJ IVP (18:44)
[2024-05-14] MEDS: ONDANSETRON 2 MG/ML inj 4 MG IVP (18:44)
--- NOTE | 2024-05-14 18:55 | ED_ITS ---
HPI - Abdominal Pain General Date Seen: 05/14/24 Chief Complaint: Abdominal Pain Stated Complaint: stomach pain Time Seen by Provider: 05/14/24 17:44 Source: patient Mode of arrival: ambulatory Limitations: no limitations History of Present Illness HPI narrative: Patient is a 53-year-old female presenting to emergency department for abdominal pain. She has pain all over her abdomen but is worse on the right side. She does have a history of cirrhosis and had ascites 3 years ago when 1st diagnosed with cirrhosis but has not had any since then. 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 States she has had some issues with abdominal discomfort before and has had diverticulitis causing similar pain. She states the pain seems to start her epigastric region and again goes throughout her abdomen but there is more tenderness on the right side. Has had some nausea at night but nothing during the day. Currently not nauseated. Denies fevers, chills, chest pain, shortness of breath, weakness, numbness, lightheadedness, dizziness. She is eating and drinking without issue. Has had some constipation but that is normal for her. States the pain initially was more intermittent but now is more constant and pain seems to be getting worse. Related Data Home Medications ?Medication ?Instructions ?Recorded ?Confirmed THC 02/05/22 09/11/23 levetiracetam 1,000 mg tablet 1,000 mg PO Q12H 02/05/22 09/11/23 levothyroxine 50 mcg tablet 50 mcg .Route .COMPLEX 02/05/22 09/11/23 magnesium oxide 400 mg (241.3 mg 400 mg 02/05/22 magnesium) tablet melatonin 3 mg capsule 3 mg PO HS PRN 02/05/22 09/11/23 omeprazole 40 mg capsule,delayed 40 mg 02/05/22 release pregabalin 50 mg capsule 50 mg Q12H 02/05/22 rifaximin 550 mg tablet (Xifaxan) 550 mg PO BID 02/05/22 09/11/23 Repatha Syringe 09/11/23 folic acid 400 mcg tablet 0.4 mg PO DAILY 09/11/23 09/11/23 Previous Rx's ?Medication ?Instructions ?Recorded amoxicillin 875 mg-potassium 1 tab PO BID #20 tabs 05/12/22 clavulanate 125 mg tablet Allergies Allergy/AdvReac Type Severity Reaction Status Date / Time cephalexin Allergy Severe Anaphylaxis Unverified 05/14/24 18:54 Qnpiqkj-ANI-IeO Reductase Allergy Severe Unverified 05/14/24 18:54 Inhibitor Pertussis Vaccines Allergy Intermediate Unverified 05/14/24 18:54 Sulfa (Sulfonamide Allergy Intermediate Hives Verified 05/14/24 18:54 Antibiotics) latex Allergy Mild Rash Unverified 05/14/24 18:54 duloxetine Allergy Unknown Unverified 05/14/24 18:54 gabapentin AdvReac Mild Unverified 05/14/24 18:54 Review of Systems Status of ROS Reports: 10 or more systems reviewed and unremarkable except as noted in History and below [facility] Medical History CKD (chronic kidney disease) stage 2, GFR 60-89 ml/min ?N18.2 - Chronic kidney disease, stage 2 (mild) (ICD-10) Ecchymosis ?R58 - Hemorrhage, not elsewhere classified (ICD-10) Subdural hemorrhage ?I62.00 - Nontraumatic subdural hemorrhage, unspecified (ICD-10) Seizures, post-traumatic ?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 - Post traumatic seizures (ICD-10) Tachycardia ?R00.0 - Tachycardia, unspecified (ICD-10) Abdominal bloating ?R14.0 - Abdominal distension (gaseous) (ICD-10) Acute on chronic diastolic (congestive) heart failure ?I50.33 - Acute on chronic diastolic (congestive) heart failure (ICD-10) Cirrhosis of liver ?K74.60 - Unspecified cirrhosis of liver (ICD-10) Metabolic encephalopathy ?G93.41 - Metabolic encephalopathy (ICD-10) Edentulous ?K08.109 - Complete loss of teeth, unspecified cause, unspecified class (ICD- 10) Mixed anxiety and depressive disorder ?F41.8 - Other specified anxiety disorders (ICD-10) Generalized muscle weakness ?M62.81 - Muscle weakness (generalized) (ICD-10) Primary insomnia ?F51.01 - Primary insomnia (ICD-10) Lipodystrophy ?E88.1 - Lipodystrophy, not elsewhere classified (ICD-10) Tinea corporis ?B35.4 - Tinea corporis (ICD-10) Vitamin B12 deficiency ?E53.8 - Deficiency of other specified B group vitamins (ICD-10) Folate deficiency ?E53.8 - Deficiency of other specified B group vitamins (ICD-10) Diffuse connective tissue disease ?M35.9 - Systemic involvement of connective tissue, unspecified (ICD-10) Uterine leiomyoma ?D25.9 - Leiomyoma of uterus, unspecified (ICD-10) Hemorrhage into subarachnoid space of neuraxis ?I60.9 - Nontraumatic subarachnoid hemorrhage, unspecified (ICD-10) Steatosis of liver ?K76.0 - Fatty (change of) liver, not elsewhere classified (ICD-10) Peripheral nerve disease ?G62.9 - Polyneuropathy, unspecified (ICD-10) Cyst, ovarian ?N83.209 - Unspecified ovarian cyst, unspecified side (ICD-10) Obstructive sleep apnea ?G47.33 - Obstructive sleep apnea (adult) (pediatric) (ICD-10) Migraine ?G43.909 - Migraine, unspecified, not intractable, without status migrainosus (ICD-10) Hypertension ?I10 - Essential (primary) hypertension (ICD-10) Occipital headache ?R51.9 - Headache, unspecified (ICD-10) GERD (gastroesophageal reflux disease) ?K21.9 - Gastro-esophageal reflux disease without esophagitis (ICD-10) Disturbance in sleep behavior ?G47.9 - Sleep disorder, unspecified (ICD-10) MDD (major depressive disorder) ?F32.9 - Major depressive disorder, single episode, unspecified (ICD-10) Alcohol abuse ?F10.10 - Alcohol abuse, uncomplicated (ICD-10) Mediastinal lymphadenopathy ?R59.0 - Localized enlarged lymph nodes (ICD-10) Sensory ganglionopathy ?G54.9 - Nerve root and plexus disorder, unspecified (ICD-10) Secundum ASD ?Q21.1 - Atrial septal defect (ICD-10) Right ventricular enlargement ?I51.7 - Cardiomegaly (ICD-10) 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 - Partial anomalous pulmonary venous connection (ICD-10) Menorrhagia ?N92.0 - Excessive and frequent menstruation with regular cycle (ICD-10) 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 - Dry beriberi (ICD-10) Tear film insufficiency ?H04.129 - Dry eye syndrome of unspecified lacrimal gland (ICD-10) Presbyopia ?H52.4 - Presbyopia (ICD-10) Bilateral myopia ?H52.13 - Myopia, bilateral (ICD-10) Hypothyroidism ?E03.9 - Hypothyroidism, unspecified (ICD-10) Dental decay ?K02.9 - Dental caries, unspecified (ICD-10) Fibroid ?D21.9 - Benign neoplasm of connective and other soft tissue, unspecified (ICD-10) Vitamin D deficiency ?E55.9 - Vitamin D deficiency, unspecified (ICD-10) Coccyx pain ?M53.3 - Sacrococcygeal disorders, not elsewhere classified (ICD-10) Essential hypertension ?I10 - Essential (primary) hypertension (ICD-10) Dysthymic disorder ?F34.1 - Dysthymic disorder (ICD-10) Generalized anxiety disorder ?F41.1 - Generalized anxiety disorder (ICD-10) Malnutrition ?E46 - Unspecified protein-calorie malnutrition (ICD-10) Myalgia and myositis Fibromyalgia ?M79.7 - Fibromyalgia (ICD-10) Nicotine dependence ?F17.200 - Nicotine dependence, unspecified, uncomplicated (ICD-10) Ataxia ?R27.0 - Ataxia, unspecified (ICD-10) Sarcoidosis of lung with sarcoidosis of lymph nodes ?D86.2 - Sarcoidosis of lung with sarcoidosis of lymph nodes (ICD-10) Peripheral neuropathy ?G62.9 - Polyneuropathy, unspecified (ICD-10) Surgical History Hx of hernia repair ?Z98.890 - Other specified postprocedural states (ICD-10) ?Z87.19 - Personal history of other diseases of the digestive system (ICD-10) History of appendectomy ?Z90.49 - Acquired absence of other specified parts of digestive tract (ICD- 10) Social History Smoking Status: Current every day smoker What tobacco products do you use: cigarettes Do you use any of these nicotine containing products: None Second hand tobacco smoke exposure: Yes How often do you have a drink containing alcohol: never How often do you have six or more drinks on one occasion: Never AUDIT-C Alcohol total score: 0 Non-prescribed substance use: marijuana (any form) Non-prescribed substance use details: THC pills service: No Exam Narrative: Exam Narrative: Const: Well-nourished, Well-developed, in mild distress Eyes: PERRL, no conjunctival injection, and symmetrical lids HENT: Atraumatic external nose and ears. Moist mucous membranes. Neck: Symmetric, trachea midline, No thyromegaly. CVS: RRR, No murmurs or gallops. Peripheral pulses 2+ and equal in all extremities RESP: Unlabored respiratory effort. Clear to auscultation bilaterally. GI: Diffuse abdominal tenderness, Nondistended, No rebound or guarding. MSK:Extremities w/o deformity, Normal Active ROM Skin: Warm, Dry. No rashes or lesions. Neuro: Normal Muscle tone, No focal neurological deficits. Psych: Awake, Alert, & Oriented x3. Appropriate mood and affect. Const: Vital Signs, click to edit/add: Vital Signs - 24 hr 05/14/24 17:13 05/14/24 19:20 Temperature 98.1 F Pulse Rate [Right Pulse Oximeter] 77 Respiratory Rate 18 18 Blood Pressure [Ri ght Upper Arm] 123/78 138/88 Pulse Oximetry 97 99 Oxygen Delivery Me thod Room Air Room Air Course Vital Signs Vital signs: Initial Vital Signs Temperature 98.1 F 05/14/24 17:13 Temperature Source Temporal Artery Scan 05/14/24 17:13 Respiratory Rate 18 05/14/24 17:13 Blood Pressure 123/78 05/14/24 17:13 Blood Pressure Mean 93 05/14/24 17:13 Pulse Oximetry 97 05/14/24 17:13 Oxygen Delivery Method Room Air 05/14/24 17:13 Vital Signs Temperature 98.1 F 05/14/24 17:13 Respiratory Rate 18 05/14/24 17:13 Blood Pressure 123/78 05/14/24 17:13 Pulse Oximetry 97 05/14/24 17:13 Oxygen Delivery Method Room Air 05/14/24 17:13 Temperature 98.1 F 05/14/24 17:13 Pulse Rate 77 05/14/24 19:20 Respiratory Rate 18 05/14/24 19:20 Blood Pressure 138/88 05/14/24 19:20 Pulse Oximetry 99 05/14/24 19:20 Oxygen Delivery Method Room Air 05/14/24 19:20 Medications Administered Medications: Discontinued Medications Generic Name Dose Route Start Last Admin Trade Name Freq PRN Reason Stop Dose Admin Morphine Sulfate 4 mg 05/14/24 18:24 05/14/24 18:44 Morphine 4 Mg/Ml Inj IVP 05/14/24 18:25 4 mg ONCE ONE Administration Ondansetron HCl 4 mg 05/14/24 18:24 05/14/24 18:44 Ondansetron 2 Mg/Ml Inj IVP 05/14/24 18:25 4 mg ONCE ONE Administration MDM - Abdominal Pain MDM Narrative Medical decision making narrative: Patient is a 53-year-old female presenting for abdominal pain. She does not have any recent history of ascites so SBP seems very unlikely. Will do a CT scan of abdomen and pelvis to better evaluate for possible issues including SBO, appendicitis, diverticulitis, liver and gallbladder disease. Will do a lipase to look for signs of pancreatitis. Also ordered CBC and CMP. Patient is also concerned about ammonia level. I explained to her that she is not having signs of hepatic encephalopathy and this is likely not beneficial but she is adamant that we check it. Will be ordered. Morphine given for pain and Zofran for nausea. Lab work returned showing no concerning abnormalities. Lipase is slightly high but no clear signs of pancreatitis. No obvious signs of infection. CT scan returned showing constipation throughout the colon worse in the right colon consistent with where her symptoms are worse. There is a fecal impaction and the cecum and I will start her on a bowel cleanout regiment. She is agreeable to this plan. Will provider Reglan for nausea as it is pro motility of the colon. Lab Data Labs: Lab Results 05/14/24 Range/Units 18:51 WBC 4.38 L (4.50-11.00) K/uL RBC 4.62 (4.00-5.20) m/uL Hgb 11.8 L (12.0-16.0) gm/dL Hct 36.7 (33.0-51.0) % MCV 79 L (80-100) fL MCH 26 (26-34) pg MCHC 32 (32-36) gm/dL RDW Coeff of Susanna 16.5 H (11.5-15.5) % Plt Count 87 L (140-440) K/uL Neut % (Auto) 64.1 (42.0-72.0) % Lymph % (Auto) 27.2 (20-44) % Iron % (Auto) 6.2 (0.0-11.0) % Eos % (Auto) 2.3 (0.0-7.0) % Baso % (Auto) 0.2 (0.0-3.0) % Neut # (Auto) 2.80 (1.7-7.0) K/uL Lymph # (Auto) 1.20 (0.90-2.90) K/uL Iron # (Auto) 0.30 (0.00-0.90) K/UL Eos # (Auto) 0.10 (0.00-0.50) K/uL Baso # (Auto) 0.00 (0.00-0.30) K/uL Abs Immat Gran (auto) 0.00 (0.00-0.30) K/uL Imm/Tot Granulo (auto) 0.0 % Sodium 140 (135-149) mmol/L Potassium 3.6 (3.6-5.1) mmol/L Chloride 115 H (96-114) mmol/L Carbon Dioxide 19 L (20-32) mmol/L Anion Gap 6 L (7-15) mEq/L BUN 9 (7-30) mg/dL Creatinine 0.7 (0.5-1.5) mg/dL Estimated Creat Clear 75.00 Estimated GFR 103 ml/min Glucose 82 (60-115) mg/dL Calcium 9.3 (8.4-10.6) mg/dL Total Bilirubin 1.4 (0.1-1.5) mg/dL AST 44 H (12-35) U/L ALT 19 (4-35) U/L Alkaline Phosphatase 58 (40-150) U/L Ammonia 28.0 (13.1-30.0) umol/L Total Protein 7.0 (6.0-8.3) g/dL Albumin 4.1 (3.3-5.0) g/dL Lipase 453 H (23-300) U/L Imaging Data CT scan abdomen and pelvis: Attestation: I have reviewed the pertinent imaging results. Radiologist's impression: Excess stool throughout the colon particularly involving the right-sided colon where there is fecal impaction in the cecum. No mechanical bowel obstruction or inflammatory change. Cirrhotic liver with splenomegaly and portal hypertension with prominent tortuosity of the portal vein, upper abdominal varices and recanalization of the periumbilical vein. No portal venous clot. Please note that all CT scans at this facility use dose modulation, iterative reconstruction, and/or weight-based dosing when appropriate to reduce radiation dose to as low as reasonably achievable. Dictated by Timmy Chambers MD @ 05/14/2024 7:37:13 PM Discharge Plan Discharge Clinical Impression: Constipation Qualifiers: Constipation type: unspecified constipation type Qualified Code(s): K59.00 - Constipation, unspecified Patient Disposition: Home, Self-Care Condition: Stable Instructions: Constipation (DC) Additional Instructions: Fall this bowel cleanout regiment. I recommend continuing to take stool softeners until you start having regular bowel movements. Return to emergency department for new or worsening symptoms. ?2 - Bisacodyl tablets (Dulcolax? laxative NOT Dulcolax? stool softener) each tablet contains 5 mg of bisacodyl ?1 - 8.3 ounce bottle of Polyethylene Glycol (PEG) 3350 Powder (MiraLAX, SmoothLAX, ClearLAX or generic equivalent) 64 oz. Gatorade? (No red colored flavors) Regular Gatorade?, Gatorade G2?, Powerade?, Powerade Zero?, Pedialyte or Propel?, Liquid IV, and other electrolyte beverages are acceptable. Red flavors are not allowed; all other colors (yellow, green, orange, purple, blue) are okay. It is also okay to buy two 2.12 oz packets of powdered Gatorade that can be mixed with water to a total volume of 64 oz of liquid. ? Simethicone 80 mg or 125 mg tablets, chewables, or softgels -Simethicone is available over the counter in a variety of forms and dosages. Capsules, chewable tablets, and liquid are all acceptable forms. - If you are buying 125 mg tablets, purchase enough simethicone to take 2 tablets. -If you are buying 80 mg tablets, purchase enough to take 3 tablets. ?1 - 10 oz. bottle Magnesium Citrate (No red colored flavors) It is also okay for you to use a 0.5 ounce package of powdered magnesium citrate (17 grams) mixed with 10 ounces of water. ?begin Clear Liquid Diet (clear liquids include things you can see through). Examples of a clear liquid diet include: water, clear broth or bouillon (gluten free options available), Gatorade, Pedialyte or Powerade, carbonated and non- carbonated soft drinks (Sprite, 7-Up, Gingerale), strained fruit juices without pulp (apple, white grape, white cranberry), Jell-O, popsicles, and up to one cup of black coffee or tea (no milk or cream) each day. The following are not allowed on a clear liquid diet: red liquids, alcoholic beverages, dairy products, protein shakes, cream broths, juice with pulp, products containing oil and chewing tobacco. For additional details on following a clear liquid diet, please see https://[email or web address].com/conditions/mpbou-rjlarg-hkvl ?Take 2 Bisacodyl (Dulcolax) tablets ?4-6 hour later Drink Miralax ? Gatorade preparation Mix 1 bottle of Miralax with 64 oz. of Gatorade in a large pitcher. Drink 1 - 8 oz. glass of the Britni ax/Gatorade solution. Continue drinking 1 - 8 oz. glass every 15 minutes thereafter until the mixture is gone With the last glass of Miralax ? Gatorade solution: take 240-250 mg of simethicone. -Simethicone is available over the counter in a variety of forms and dosages. Capsules, chewable tablets, and liquid are all acceptable forms. -Take enough of the medication to total between 240-250 mg. For example, if you have -125 mg chewable tablets, take 2 tablets to total 250 mg. -80 mg tablets, take 3 tablets to total 240 mg. ?The next day take 10 ounces of magnesium citrate Prescriptions: No Action omeprazole 40 mg capsule,delayed release(DR/EC) 40 mg magnesium oxide 400 mg (241.3 mg magnesium) tablet 400 mg levothyroxine 50 mcg tablet 50 mcg .ROUTE .COMPLEX Rx Instructions: as prescribed pregabalin 50 mg capsule 50 mg Q12H levetiracetam 1,000 mg tablet 1,000 mg PO Q12H Xifaxan 550 mg tablet 550 mg PO BID melatonin 3 mg capsule 3 mg PO HS PRN (DME) THC See Rx Instructions .ROUTE .MEDSUPPLY Rx Instructions: as prescribed amoxicillin-pot clavulanate 875-125 mg tablet 1 tab PO BID Qty: 20 0RF Rx Instructions: toe infection, has taken amoxicillin without a problem in the past Repatha Syringe folic acid 400 mcg tablet 0.4 mg PO DAILY Follow Up/Referrals: Rio Jaquez MD [Primary Care Provider] - Stand Alone Forms: MyHealth Info Instructions
[2024-05-14 18:59] LABS: Basophils Percent Auto 0.2 % (0.0-3.0); Eosinophils Percent Auto 2.3 % (0.0-7.0); Hematocrit 36.7 % (33.0-51.0); Hemoglobin* 11.8 gm/dL (12.0-16.0); Lymphocytes Percent Auto 27.2 % (20-44); Mean Corpuscular HGB Conc 32 gm/dL (32-36); Mean Corpuscular Hemoglobin 26 pg (26-34); Mean Corpuscular Volume 79 fL (80-100); Monocytes Percent Auto 6.2 % (0.0-11.0); Neutrophils Percent Auto 64.1 % (42.0-72.0); Platelet Count* 87 K/uL (140-440); RDW Coefficient of Variation % 16.5 % (11.5-15.5); Red Blood Count 4.62 m/uL (4.00-5.20); White Blood Count* 4.38 K/uL (4.50-11.00)
[2024-05-14 19:02] LABS: Slide Review Reflex No
[2024-05-14 19:20] VITALS: BP 138/88; PULSE 77; RESP 18; O2SAT 99
[2024-05-14 19:26] LABS: Albumin* 4.1 g/dL (3.3-5.0); Chloride* 115 mmol/L (96-114)
[2024-05-14 19:27] LABS: Potassium* 3.6 mmol/L (3.6-5.1); Sodium* 140 mmol/L (135-149)
[2024-05-14 19:29] LABS: Alanine Aminotransferase* 19 U/L (4-35); Alkaline Phosphatase* 58 U/L (40-150); Anion Gap 6 mEq/L (7-15); Aspartate Amino Transferase* 44 U/L (12-35); Bilirubin Total* 1.4 mg/dL (0.1-1.5); Blood Urea Nitrogen* 9 mg/dL (7-30); Carbon Dioxide* 19 mmol/L (20-32); Creatinine* 0.7 mg/dL (0.5-1.5); Estimated Glomerular Filt Rate 103 ml/min; Glucose* 82 mg/dL (60-115); Lipase* 453 U/L (23-300)
[2024-05-14 19:30] LABS: Calcium* 9.3 mg/dL (8.4-10.6)
== END 2024-05-14 20:00 | disposition home or self-care (01) ==
PROVIDERS: Emergency Provider Student in an Organized Health Care Education/Training Program
DX: K59.00 Constipation, unspecified (principal)
CPT/HCPCS: 36415; 74177; 80053; 82140; 83690; 85025; 96374; 96375; 99283; 99284; 99285; J2270; J2405; Q9967

== ENCOUNTER 2024-06-19 13:47 | Outpatient (CLI) | payer MEDICARE, BC, SELFPAY | END 2024-06-19 13:48 | disposition home or self-care (01) | LOC: AMB 06-24 18:20 | PROVIDERS: Visit Provider Family Medicine | DX: R06.09 Other forms of dyspnea (principal) | CPT/HCPCS: A0425; A0427 ==

== ENCOUNTER 2024-08-31 18:35 | Outpatient (CLI) | payer BC, MEDICARE, SELFPAY | END 2024-08-31 18:36 | disposition home or self-care (01) | LOC: AMB 09-10 05:12 | PROVIDERS: Visit Provider Emergency Medicine Emergency Medical Services | DX: G40.909 Epilepsy, unspecified, not intractable, without status epilepticus (principal); S00.83XA Contusion of other part of head, initial encounter; W18.30XA Fall on same level, unspecified, initial encounter; Y92.009 Unspecified place in unspecified non-institutional (private) residence as the place of occurrence of the external cause | CPT/HCPCS: A0425; A0429 ==

== ENCOUNTER 2024-08-31 19:19 | Emergency (ER) | payer BC, MEDICARE, SELFPAY ==
[2024-08-31] VITALS (13 sets, daily range): BP systolic 109–141; BP diastolic 75–98; PULSE 70–88; RESP 16; TEMP 36.8; O2SAT 95–100
--- NOTE | 2024-08-31 19:20 | CRLHL7_ITS ---
For Patients: As a result of the Century Cures Act, medical imaging exams and procedure reports are released immediately into your electronic medical record. You may view this report before your referring provider. If you have questions, please contact your health care provider. INDICATION: Fall. Head injury. COMPARISON: 09/11/2023. TECHNIQUE: Noncontrast CT head. FINDINGS: Normal brain parenchymal morphology. Stable prominence of the subarachnoid spaces about both frontal lobes which is a normal anatomic variant. No acute intracranial hemorrhage, acute infarct, mass effect, or fracture. No midline shift. No abnormal ventricular dilatation. Normal calvarium and skull base. Soft tissue swelling about the right frontal calvarium and right orbit. No underlying fracture. Mastoid air cells are clear. IMPRESSION: 1. No acute intracranial abnormality. 2. Soft tissue swelling about the right frontal calvarium and right orbit. No underlying fractures Please note that all CT scans at this facility use dose modulation, iterative reconstruction, and/or weight-based dosing when appropriate to reduce radiation dose to as low as reasonably achievable. Dictated by Linden Hopper MD @ 08/31/2024 7:54:38 PM (Electronically Signed)
--- NOTE | 2024-08-31 19:22 | ED_ITS ---
HPI - General Adult General Time Seen by Provider: 19:22 Date Seen: 08/31/24 Chief complaint: Fall/Minor Trauma Stated complaint: Syncopal Time Seen by Provider: 08/31/24 19:21 Source: patient, EMS and RN notes reviewed Mode of arrival: EMS Limitations: no limitations History of Present Illness HPI narrative: This 54-year-old female is coming in with EMS after a fall, possible seizure. She was at home, around 3:00 p.m. this afternoon just came to on the ground. She had a large hematoma on her right forehead. She states her headache essentially just was right in that area. Later, she was on the couch and came to with her head repetitively hitting on this side where the hematoma was, was painful. She some eyes that she probably had a seizure. She states her last seizure was in 2020. She is on Keppra, has been taking it. She has no acute neck pain, nothing else is hurting. She has localized tenderness over the hematoma on her forehead. She did get her COVID vaccine a couple days ago and just has not felt well since then. Denies any chest pain, no palpitations. She otherwise is not been sick with any GI symptoms. Just has felt poorly after the COVID vaccine. Nursing staff after triage did appropriately call a trauma team activation. It was not called by EMS. Related Data Home Medications ?Medication ?Instructions ?Recorded ?Confirmed THC 02/05/22 09/11/23 levetiracetam 1,000 mg tablet 1,000 mg PO Q12H 02/05/22 09/11/23 levothyroxine 50 mcg tablet 50 mcg .Route .COMPLEX 02/05/22 09/11/23 magnesium oxide 400 mg (241.3 mg 400 mg 02/05/22 magnesium) tablet melatonin 3 mg capsule 3 mg PO HS PRN 02/05/22 09/11/23 omeprazole 40 mg capsule,delayed 40 mg 02/05/22 release pregabalin 50 mg capsule 50 mg Q12H 02/05/22 rifaximin 550 mg tablet (Xifaxan) 550 mg PO BID 02/05/22 09/11/23 Repatha Syringe 09/11/23 folic acid 400 mcg tablet 0.4 mg PO DAILY 09/11/23 09/11/23 Previous Rx's ?Medication ?Instructions ?Recorded amoxicillin 875 mg-potassium 1 tab PO BID #20 tabs 05/12/22 clavulanate 125 mg tablet levetiracetam 250 mg tablet 250 mg PO BID #60 tabs 08/31/24 (Keppra) Allergies Allergy/AdvReac Type Severity Reaction Status Date / Time cephalexin Allergy Severe Anaphylaxis Unverified 05/14/24 18:54 Zpsycyj-PMP-QwH Reductase Allergy Severe Unverified 05/14/24 18:54 Inhibitor Pertussis Vaccines Allergy Intermediate Unverified 05/14/24 18:54 Sulfa (Sulfonamide Allergy Intermediate Hives Verified 05/14/24 18:54 Antibiotics) latex Allergy Mild Rash Unverified 05/14/24 18:54 duloxetine Allergy Unknown Unverified 05/14/24 18:54 gabapentin AdvReac Mild Unverified 05/14/24 18:54 Review of Systems Status of ROS: Reports: 6 or more systems reviewed and unremarkable except as noted in History and below [facility] Medical History CKD (chronic kidney disease) stage 2, GFR 60-89 ml/min ?N18.2 - Chronic kidney disease, stage 2 (mild) (ICD-10) Ecchymosis ?R58 - Hemorrhage, not elsewhere classified (ICD-10) Subdural hemorrhage ?I62.00 - Nontraumatic subdural hemorrhage, unspecified (ICD-10) Seizures, post-traumatic ?R56.1 - Post traumatic seizures (ICD-10) Tachycardia ?R00.0 - Tachycardia, unspecified (ICD-10) Abdominal bloating ?R14.0 - Abdominal distension (gaseous) (ICD-10) Acute on chronic diastolic (congestive) heart failure ?I50.33 - Acute on chronic diastolic (congestive) heart failure (ICD-10) Cirrhosis of liver ?K74.60 - Unspecified cirrhosis of liver (ICD-10) Metabolic encephalopathy ?G93.41 - Metabolic encephalopathy (ICD-10) Edentulous ?K08.109 - Complete loss of teeth, unspecified cause, unspecified class (ICD- 10) Mixed anxiety and depressive disorder ?F41.8 - Other specified anxiety disorders (ICD-10) Generalized muscle weakness ?M62.81 - Muscle weakness (generalized) (ICD-10) Primary insomnia ?F51.01 - Primary insomnia (ICD-10) Lipodystrophy ?E88.1 - Lipodystrophy, not elsewhere classified (ICD-10) Tinea corporis ?B35.4 - Tinea corporis (ICD-10) Vitamin B12 deficiency ?E53.8 - Deficiency of other specified B group vitamins (ICD-10) Folate deficiency ?E53.8 - Deficiency of other specified B group vitamins (ICD-10) Diffuse connective tissue disease ?M35.9 - Systemic involvement of connective tissue, unspecified (ICD-10) Uterine leiomyoma ?D25.9 - Leiomyoma of uterus, unspecified (ICD-10) Hemorrhage into subarachnoid space of neuraxis ?I60.9 - Nontraumatic subarachnoid hemorrhage, unspecified (ICD-10) Steatosis of liver ?K76.0 - Fatty (change of) liver, not elsewhere classified (ICD-10) Peripheral nerve disease ?G62.9 - Polyneuropathy, unspecified (ICD-10) Cyst, ovarian ?N83.209 - Unspecified ovarian cyst, unspecified side (ICD-10) Obstructive sleep apnea ?G47.33 - Obstructive sleep apnea (adult) (pediatric) (ICD-10) Migraine ?G43.909 - Migraine, unspecified, not intractable, without status migrainosus (ICD-10) Hypertension ?I10 - Essential (primary) hypertension (ICD-10) Occipital headache ?R51.9 - Headache, unspecified (ICD-10) GERD (gastroesophageal reflux disease) ?K21.9 - Gastro-esophageal reflux disease without esophagitis (ICD-10) Disturbance in sleep behavior ?G47.9 - Sleep disorder, unspecified (ICD-10) MDD (major depressive disorder) ?F32.9 - Major depressive disorder, single episode, unspecified (ICD-10) Alcohol abuse ?F10.10 - Alcohol abuse, uncomplicated (ICD-10) Mediastinal lymphadenopathy ?R59.0 - Localized enlarged lymph nodes (ICD-10) Sensory ganglionopathy ?G54.9 - Nerve root and plexus disorder, unspecified (ICD-10) Secundum ASD ?Q21.1 - Atrial septal defect (ICD-10) Right ventricular enlargement ?I51.7 - Cardiomegaly (ICD-10) 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 - Partial anomalous pulmonary venous connection (ICD-10) Menorrhagia ?N92.0 - Excessive and frequent menstruation with regular cycle (ICD-10) 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 - Dry beriberi (ICD-10) Tear film insufficiency ?H04.129 - Dry eye syndrome of unspecified lacrimal gland (ICD-10) Presbyopia ?H52.4 - Presbyopia (ICD-10) Bilateral myopia ?H52.13 - Myopia, bilateral (ICD-10) Hypothyroidism ?E03.9 - Hypothyroidism, unspecified (ICD-10) Dental decay ?K02.9 - Dental caries, unspecified (ICD-10) Fibroid ?D21.9 - Benign neoplasm of connective and other soft tissue, unspecified (ICD-10) Vitamin D deficiency ?E55.9 - Vitamin D deficiency, unspecified (ICD-10) Coccyx pain ?M53.3 - Sacrococcygeal disorders, not elsewhere classified (ICD-10) Essential hypertension ?I10 - Essential (primary) hypertension (ICD-10) Dysthymic disorder ?F34.1 - Dysthymic disorder (ICD-10) Generalized anxiety disorder ?F41.1 - Generalized anxiety disorder (ICD-10) Malnutrition ?E46 - Unspecified protein-calorie malnutrition (ICD-10) Myalgia and myositis Fibromyalgia ?M79.7 - Fibromyalgia (ICD-10) Nicotine dependence ?F17.200 - Nicotine dependence, unspecified, uncomplicated (ICD-10) Ataxia ?R27.0 - Ataxia, unspecified (ICD-10) Sarcoidosis of lung with sarcoidosis of lymph nodes ?D86.2 - Sarcoidosis of lung with sarcoidosis of lymph nodes (ICD-10) Peripheral neuropathy ?G62.9 - Polyneuropathy, unspecified (ICD-10) Surgical History Hx of hernia repair ?Z98.890 - Other specified postprocedural states (ICD-10) ?Z87.19 - Personal history of other diseases of the digestive system (ICD-10) History of appendectomy ?Z90.49 - Acquired absence of other specified parts of digestive tract (ICD- 10) Social History Smoking Status: Current every day smoker What tobacco products do you use: cigarettes Do you use any of these nicotine containing products: None Second hand tobacco smoke exposure: Yes How often do you have a drink containing alcohol: never How often do you have six or more drinks on one occasion: Never AUDIT-C Alcohol total score: 0 Non-prescribed substance use: marijuana (any form) Non-prescribed substance use details: THC pills service: No Exam Const: Vital Signs, click to edit/add: Vital Signs - 24 hr 08/31/24 19:32 08/31/24 19:38 08/31/24 19:39 Temperature 98.2 F Pulse Rate 70 72 Pulse Rate [Pulse Oximeter] 88 Respiratory Rate 16 16 Blood Pressure 141/98 H Blood Pressure [Ri ght Upper Arm] 141/98 H Pulse Oximetry 97 99 99 Oxygen Delivery Me thod Room Air 08/31/24 19:45 08/31/24 20:00 08/31/24 20:15 Temperature Pulse Rate 73 70 73 Pulse Rate [Pulse Oximeter] Respiratory Rate Blood Pressure Blood Pressure [Ri ght Upper Arm] Pulse Oximetry 100 95 99 Oxygen Delivery Me thod 08/31/24 20:16 08/31/24 20:27 08/31/24 20:29 Temperature Pulse Rate 74 78 Pulse Rate [Pulse Oximeter] Respiratory Rate 16 Blood Pressure 111/85 Blood Pressure [Ri ght Upper Arm] Pulse Oximetry 99 100 99 Oxygen Delivery Me thod 08/31/24 20:30 08/31/24 20:39 08/31/24 20:45 Temperature Pulse Rate 76 76 74 Pulse Rate [Pulse Oximeter] Respiratory Rate 16 Blood Pressure 121/75 Blood Pressure [Ri ght Upper Arm] Pulse Oximetry 98 98 97 Oxygen Delivery Me thod 08/31/24 20:53 Temperature Pulse Rate 81 Pulse Rate [Pulse Oximeter] Respiratory Rate 16 Blood Pressure 109/79 Blood Pressure [Ri ght Upper Arm] Pulse Oximetry 95 Oxygen Delivery Me thod Patient's initial survey reveals an alert, conversive patient with an obvious hematoma on her right forehead, no active bleeding. Brief airway is patent, breathing independently, hemodynamically stable, vitals had been obtain. Secondary survey: Patient with hematoma on right frontal forehead, no open wounds or bleeding. Pupils equal round reactive, sclera clear. Symmetrical facial function, no drainage from ears are canals. Neck supple, no palpable tenderness, no tenderness over her back, no traumatic change noted. Lungs are clear, good air entry, no wheezing or crackles. CV regular rate and rhythm, no murmur, normal S1-S2, no S3-S4. Abdomen is soft, nontender, nondistended, no organomegaly. Moving extremities, no tenderness over arms legs. Denies pain elsewhere. Documenting provider has reviewed patient's vital signs: yes Course Course ED Course: Patient does have a history of subdural hematoma, liver disease with cirrhosis. Will have patient to get a head CT. It is likely she has had recurrent seizures. Will order a Keppra level but this is a send out for us. Will get full complement of labs. After we have some of her values back, have head CT imaging, may need to confer with Neurology regarding her medication. Will make sure that we do not see any concerning metabolic change, nothing for infection. Will do the triple viral swab as well. Consider further imaging if indicated based on observing the patient here or with her laboratory evaluation. Reevaluation(s) Time of Reevaluation #1: 21:07 Reevaluation #1: Patient's head CT findings are reviewed with her, thankfully nothing concerning. Labs are reassuring. She sees Dr. Alvares at [facility]. Will try to discuss with them regarding this patient, see if they want additional medications or other recommendations. Did review with her that her triple viral swab is indeed negative. Consultations Consultation #1: Have spoken with Neurology on-call Dr. Hauser. We reviewed patient's case. She would like to increase her Keppra to 12 50 b.i.d., give her an IV load of a 1000 mg here tonight. She would do the oral dose tonight as well. She would like her to have a rescue medicine Penny she has 2 episodes of seizures again at home, would direct the patient to take this. She requests that the patient call the office to get scheduled for follow-up appointment, has not been seen since 2022. I will update the patient on this, get these medicines ordered and plan for discharge to home. Time: 21:40 Vital Signs Vital signs: Initial Vital Signs Temperature 98.2 F 08/31/24 19:32 Temperature Source Temporal Artery Scan 08/31/24 19:32 Pulse Rate 88 08/31/24 19:32 Respiratory Rate 16 08/31/24 19:32 Blood Pressure 141/98 H 08/31/24 19:32 Blood Pressure Mean 112 H 08/31/24 19:32 Blood Pressure Position Supine 08/31/24 19:32 Pulse Oximetry 97 08/31/24 19:32 Oxygen Delivery Method Room Air 08/31/24 19:32 Vital Signs Temperature 98.2 F 08/31/24 19:32 Pulse Rate 88 08/31/24 19:32 Respiratory Rate 16 08/31/24 19:32 Blood Pressure 141/98 H 08/31/24 19:32 Pulse Oximetry 97 08/31/24 19:32 Oxygen Delivery Method Room Air 08/31/24 19:32 Temperature 98.2 F 08/31/24 19:32 Pulse Rate 81 08/31/24 20:53 Respiratory Rate 16 08/31/24 20:53 Blood Pressure 109/79 08/31/24 20:53 Pulse Oximetry 95 08/31/24 20:53 Oxygen Delivery Method Room Air 08/31/24 19:32 Medical Decision Making Lab Data Lab results reviewed: Yes I reviewed the patient's lab results Labs: Lab Results 08/31/24 08/31/24 Range/Units 19:27 19:27 WBC 3.49 L (4.50-11.00) K/uL RBC 4.51 (4.00-5.20) m/uL Hgb 10.9 L (12.0-16.0) gm/dL Hct 34.6 (33.0-51.0) % MCV 77 L (80-100) fL MCH 24 L (26-34) pg MCHC 32 (32-36) gm/dL RDW Coeff of Susanna 17.9 H (11.5-15.5) % Plt Count 73 L (140-440) K/uL Neut % (Auto) 63.3 (42.0-72.0) % Lymph % (Auto) 26.4 (20-44) % [place] % (Auto) 8.0 (0.0-11.0) % Eos % (Auto) 1.1 (0.0-7.0) % Baso % (Auto) 0.3 (0.0-3.0) % Neut # (Auto) 2.20 (1.7-7.0) K/uL Lymph # (Auto) 0.90 (0.90-2.90) K/uL [place] # (Auto) 0.30 (0.00-0.90) K/UL Eos # (Auto) 0.00 (0.00-0.50) K/uL Baso # (Auto) 0.00 (0.00-0.30) K/uL Abs Immat Gran (auto) 0.00 (0.00-0.30) K/uL Imm/Tot Granulo (auto) 0.9 % INR 1.13 H (0.91-1.10) APTT 35 H (23-33) Seconds Sodium 142 (135-149) mmol/L Potassium 4.0 (3.6-5.1) mmol/L Chloride 113 (96-114) mmol/L Carbon Dioxide 23 (20-32) mmol/L Anion Gap 6 L (7-15) mEq/L BUN 12 (7-30) mg/dL Creatinine 0.8 (0.5-1.5) mg/dL Estimated GFR 87 ml/min Glucose 109 (60-115) mg/dL Lactate 1.2 (0.5-1.9) mmol/L Calcium 9.4 (8.4-10.6) mg/dL Magnesium 1.7 (1.5-2.6) mg/dL Total Bilirubin 1.4 (0.1-1.5) mg/dL Direct Bilirubin 0.5 (0.0-0.5) mg/dL AST 46 H (12-35) U/L ALT 24 (4-35) U/L Alkaline Phosphatase 46 (40-150) U/L Ammonia 29.2 (13.1-30.0) umol/L Troponin I < 0.01 L (0.01-0.04) ng/mL C-Reactive Protein < 0.5 L (0.5-1.0) mg/dL Total Protein 6.5 (6.0-8.3) g/dL Albumin 4.0 (3.3-5.0) g/dL Ethyl Alcohol < 0.01 L Cancelled (0.01-0.03) % SARS-CoV-2 (PCR) Negative SARS-CoV-2 (Negative) Influenza Type A (PCR) Negative PCR FLU A (Negative) Influenza Type B (PCR) Negative PCR FLU B (Negative) RSV (PCR) Negative PCR RSV (Negative) Imaging Data CT scan - head: Attestation: I have reviewed the pertinent imaging results. Radiologist's impression: Patient: RONALD SARKAR Facility:?[facility] Patient ID:?[id number] Site Patient ID:?[id number]. Site :?[id number] Study:?CT-Head code trauma - w/o-08/31/2024 7:34:43 PM Ordering Physician:Parminder Brito Final Report: INDICATION: Fall. Head injury. COMPARISON: 09/11/2023. TECHNIQUE: Noncontrast CT head. FINDINGS: Normal brain parenchymal morphology. Stable prominence of the subarachnoid spaces about both frontal lobes which is a normal anatomic variant. No acute intracranial hemorrhage, acute infarct, mass effect, or fracture. No midline shift. No abnormal ventricular dilatation. Normal calvarium and skull base. Soft tissue swelling about the right frontal calvarium and right orbit. No underlying fracture. Mastoid air cells are clear. IMPRESSION: 1. No acute intracranial abnormality. 2. Soft tissue swelling about the right frontal calvarium and right orbit. No underlying fractures Please note that all CT scans at this facility use dose modulation, iterative reconstruction, and/or weight-based dosing when appropriate to reduce radiation dose to as low as reasonably achievable. Dictated by Linden Hopper MD @ 08/31/2024 7:54:38 PM (Electronic Signature) ECG Data Attestation: I personally reviewed and interpreted this ECG as follows: (Normal sinus rhythm, 73 beats per minute. No ischemia, no infarct.) Prior ECG tracings: not available for review Discharge Plan Discharge Clinical Impression: Seizure Hematoma of frontal scalp Qualifiers: Encounter type: initial encounter Qualified Code(s): S00.03XA - Contusion of scalp, initial encounter Patient Disposition: Home, Self-Care Condition: Stable Instructions: Epilepsy (ED), Hematoma (ED) Additional Instructions: You are to increase your Keppra to 12 150 mg twice a day. Have sent in extra medicines so you can do this. We have given you your oral dose tonight, will next need this tomorrow morning. You are to call your neurologist office and get scheduled for follow-up. Have sent in for a rescue medicine which you are to take intranasally if you have more than 2 seizures in a day. If you need to take this medicine, you are to be evaluated. You are not to drive given that you have had seizures today. Talk to your neurologist about when you be clear to drive again. Prescriptions: New levetiracetam [Keppra] 250 mg tablet 250 mg PO BID Qty: 60 0RF Rx Instructions: Take this twice a day with your 1000 mg tablets for a total of 1250 mg twice daily. No Action omeprazole 40 mg capsule,delayed release(DR/EC) 40 mg magnesium oxide 400 mg (241.3 mg magnesium) tablet 400 mg levothyroxine 50 mcg tablet 50 mcg .ROUTE .COMPLEX Rx Instructions: as prescribed pregabalin 50 mg capsule 50 mg Q12H levetiracetam 1,000 mg tablet 1,000 mg PO Q12H Xifaxan 550 mg tablet 550 mg PO BID melatonin 3 mg capsule 3 mg PO HS PRN (DME) THC See Rx Instructions .ROUTE .MEDSUPPLY Rx Instructions: as prescribed amoxicillin-pot clavulanate 875-125 mg tablet 1 tab PO BID Qty: 20 0RF Rx Instructions: toe infection, has taken amoxicillin without a problem in the past Repatha Syringe folic acid 400 mcg tablet 0.4 mg PO DAILY Follow Up/Referrals: Rio Jaquez MD [Primary Care Provider] - Stand Alone Forms: [employer] Info Instructions
[2024-08-31 19:38] LABS: Lactate* 1.2 mmol/L (0.5-1.9)
[2024-08-31 19:40] LABS: Basophils Percent Auto 0.3 % (0.0-3.0); Eosinophils Percent Auto 1.1 % (0.0-7.0); Hematocrit 34.6 % (33.0-51.0); Hemoglobin* 10.9 gm/dL (12.0-16.0); Immature Granulocytes Pct Auto 0.9 %; Lymphocytes Percent Auto 26.4 % (20-44); Mean Corpuscular HGB Conc 32 gm/dL (32-36); Mean Corpuscular Hemoglobin 24 pg (26-34); Mean Corpuscular Volume 77 fL (80-100); Neutrophils Percent Auto 63.3 % (42.0-72.0); Platelet Count* 73 K/uL (140-440); RDW Coefficient of Variation % 17.9 % (11.5-15.5); Red Blood Count 4.51 m/uL (4.00-5.20); White Blood Count* 3.49 K/uL (4.50-11.00)
[2024-08-31 19:45] LABS: Slide Review Reflex No
[2024-08-31 19:54] LABS: Chloride* 113 mmol/L (96-114)
[2024-08-31 19:55] LABS: Sodium* 142 mmol/L (135-149)
[2024-08-31 19:57] LABS: Creatinine* 0.8 mg/dL (0.5-1.5); Estimated Glomerular Filt Rate 87 ml/min
[2024-08-31 19:58] LABS: Alanine Aminotransferase* 24 U/L (4-35); Alkaline Phosphatase* 46 U/L (40-150); Anion Gap 6 mEq/L (7-15); Aspartate Amino Transferase* 46 U/L (12-35); Bilirubin Direct* 0.5 mg/dL (0.0-0.5); Bilirubin Total* 1.4 mg/dL (0.1-1.5); Blood Urea Nitrogen* 12 mg/dL (7-30); Calcium* 9.4 mg/dL (8.4-10.6); Carbon Dioxide* 23 mmol/L (20-32); Glucose* 109 mg/dL (60-115); Magnesium* 1.7 mg/dL (1.5-2.6); Total Protein* 6.5 g/dL (6.0-8.3)
[2024-08-31 20:04] LABS: INR 1.13 (0.91-1.10); Prothrombin Time 15.2 Seconds
[2024-08-31 20:05] LABS: Partial Thromboplastin Time* 35 Seconds (23-33)
[2024-08-31 20:08] LABS: Ammonia* 29.2 umol/L (13.1-30.0)
[2024-08-31 20:26] LABS: C Reactive Protein* < 0.5 mg/dL (0.5-1.0); Troponin I* < 0.01 ng/mL (0.01-0.04)
[2024-08-31 20:45] LABS: PCR FLU A Negative PCR FLU A (Negative); PCR FLU B Negative PCR FLU B (Negative); PCR RSV Negative PCR RSV (Negative); SARS PCR* Negative SARS-CoV-2 (Negative)
[2024-08-31 20:59] LABS: Ethanol* < 0.01 % (0.01-0.03)
[2024-08-31] MEDS: levETIRAcetam 500 MG TABLET 1250 MG PO (22:43)
[2024-09-02 06:43] LABS: Keppra (Levetiracetam) 47 ug/mL (10-40)
== END 2024-08-31 23:07 | disposition home or self-care (01) ==
PROVIDERS: Emergency Provider Family Medicine
DX: R56.9 Unspecified convulsions (principal); S00.03XA Contusion of scalp, initial encounter
CPT/HCPCS: 36415; 70450; 80053; 80177; 82077; 82140; 82248; 83605; 83735; 84484; 85025; 85610; 85730; 86140; 87631; 93005; 94761; 96365; 99284; 99291; A9270; G0390; J1953

== ENCOUNTER 2025-03-24 20:18 | Emergency (ER) | payer BC, MEDICARE, SELFPAY ==
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
--- OUTSIDE RECORDS SUMMARY | 2025-02-08 13:00 | XMS_ITS | Encounter Summary ---
Author Organization [facility] Address [address] [place] [address] Care Team Providers Care Data Entry Processor Name Role Phone Elsewhere, Pcp Primary Care Provider Unavailabl e Reason for Referral * Behavioral Health (Routine) - Authorized Specialty Diagnoses / Procedures Referred By Good zhu Referred To Contact Psychiatry / Psychiatry and Psychology Diagnoses Seizure Post Traumatic Non Epileptic (HCC) Procedures PSY Neuropsychology testing - Epilepsy Cheyenne Cardona M.D. [address] [place] [address] Phone: tel: fax: [facility] Referral ID Status Reason Start Date Expiration Date V isits Requested Visits Authorized [id number] Authorized 02/08/2025 05/11/2026 1 1 * MRI/CAT/PET Scan (Routine) - Closed Specialty Diagnoses / Procedures Referred By Good zhu Referred To Contact Radiology Diagnoses Seizure Post Traumatic Non Epileptic (HCC) Procedures MR Brain without and with IV Contrast Cheyenne Cardona M.D. [address] [place] [address] Phone: tel: fax: [facility] Referral ID Status Reason Start Date Expiration Date Visits Re quested Visits Authorized [id number] Closed 02/08/2025 05/11/2026 1 1 Reason for Visit * Outpatient (Routine) - Closed Specialty Diagnoses / Procedures Referred By Contjackelin t Referred To Contact Neurology Diagnoses Seizure Post Traumatic Non Epileptic (HCC) Mahsa Gipson M.D. [id number] [address] Phone: tel: fax: [facility] Referral ID Status Reason Start Date Expiration Date Visits Re quested Visits Authorized [id number] Closed 10/13/2024 04/14/2026 1 1 Encounter Details Date Type Department Care Team (Latest Contact Info) Description 02/08/2025 1:00 PM CDT Comprehensive Visit Department of Neurology in [place], [place] [address] [place] [address] Cheyenne Cardona M.D. [address] [place] [address] Seizure Post Traumatic Non Epileptic (HCC) (Primary Dx) Social History Tobacco Use Types Packs/Day Years Used Date Smoking Tobacco: Every Day Cigarettes 0.5 40.7 Started: 08/09/1985 Passive Smoke Exposure: Never Smokeless Tobacco: Never Alcohol Use Standard Drinks/Week Comments Not Currently 0 (1 standard drink = 0.6 oz pur e alcohol) [facility] Utilities Answer Date Recorded In the past 12 months has th e electric, gas, oil, or water company threatened to shut off services in your home? No 09/21/2024 Hunger Vital Sign Answer Date Recorded Within the past 12 months, y ou worried that your food would run out before you got the money to buy more. Never true 09/21/19 25 Within the past 12 months, t he food you bought just didn't last and you didn't have money to get more. Never true 09/21/2024 PRAPARE - Transportation Answer Date Re corded In the past 12 months, has l ack of transportation kept you from medical appointments or from getting medications? Yes 09/09 In the past 12 months, has l ack of transportation kept you from meetings, work, or from getting things needed for daily living? Yes 09/21/2024 Depression Answer Date Recor ded PHQ-9 Total Score (max 27) 12 11/24 Housing Stability Answer Date Recorded What is your living situation today? I h ave a place to live today, but I am worried about losing it in the future 09/21/2024 Comments No Sex and Gender Information Value Date Recorded Sex Assigned at Female 09/14/2023 4:26 PM PROCESS TECH Legal Sex Female 11:56 AM PROCESS TECH Gender Identity Female 09/14/2023 4:26 PM PROCESS TECH Sexual Orientation Straight 09/14/2023 4: 26 PM PROCESS TECH documented as of this encounter Last Filed Vital Signs Vital Sign Reading Time Taken Comments Blood Pressure 127/89 02/08/2025 1:17 PM CDT Pulse 79 02/08/2025 1:17 PM CDT Temperature - - Respiratory Rate - - Oxygen Saturation - - Inhaled Oxygen Concentration - - Weight 53 kg (116 lb 13.5 oz) 02/08/2025 1:17 PM CDT Height 168 cm (5' 6.14) 02/08/2025 1:17 PM CDT Body Mass Index 18.78 02/08/2025 1:17 PM CDT documented in this encounter Consult Notes * Cheyenne Cardona M.D. - 02/08/2025 1:00 PM CDT SUBJECTIVE Referring provider: Mahsa Gipson M.D. [id number] [address] Referral question: History of epilepsy. CHIEF COMPLAINT / REASON FOR VISIT Carol Del Castillo is a 54 y.o. right-handed female who presents to Epilepsy Clinic due to a diagnosis of epilepsy HISTORY OF PRESENT ILLNESS The patient has a complicated past medical history, including congenital heart defect, cardiac arrest at age 39, peripheral neuropathy, past alcohol use with alcoholic cirrhosis, MRSA infection, subdural hematoma, and prior seizures. She is unaccompanied in clinic, but reports that she has had seizures associated with falls. Per discussion with the patient and chart review. The history is as follows: she notes she fell at age 20 and had a seizure but did not have much evaluation at that time. She then had a cardiac arrest at age 39 when she was in rehabilitation. She had been dealing with significant neuropathic pain at the [facility]. She did not have seizures with this. Then in 2020 she fell and hit her head and had one or two seizures around that time. Per notes, one was witnessed by her at the time and was associated with her getting rigid and shaking. She had a head CT that showed a subdural hematoma per notes and was started on levetiracetam 1000 mg BID. There were then 2 events in August concerning for seizures but she was alone for these so the description is limited but she felt unwell and then woke up. Levetiracetam was increased to 1250 mg BID. She tolerates it well. Per the record last MRI was in 2022, but we do not have the images. Routine EEG was normal. She is struggling with cognitive issues still, she has difficulty with math. She is also weak on the left side and is not completely certain when this started. She is in occupational therapy for this. She notes her foot drop has improved. She denies current alcohol use but notes she used to drink a lot but did not have an issue quitting. OBJECTIVE Blood pressure 127/89, pulse 79, height 168 cm, weight 53 kg, not currently . PHYSICAL EXAM General: no acute distress, breathing comfortably on room air Neuro: alert and oriented to person, place and time. Speech is without dysarthria or aphasia. Cranial nerves: PERRL, EOMI, facial sensation intact, facial symmetry, tongue protrudes midline, palate rise symmetric. There is left hemiparesis in an upper motor neuron pattern, most pronounced in the upper extremity.AMRs are reduced in the left upper extremity. There is significant reduced sensation to pin prick and light touch throughout all of the extremities. Slightly increased (to normal) reflexes on the left arm but reduced on right and in the lower extremities. Can ambulate short distance without a cane. ASSESSMENT / PLAN Ms. Del Castillo is a 54-year-old woman with a complicated medical history. She is currently on levetiracetam for prior seizures. She has cognitive concerns as well and had a prior cardiac arrest and subdural hematoma. She has left hemiparesis on exam and has been working with occupational therapy. Outside neurology note from 2021 notes normal strength in all extremities. We will obtain an MRI of the brain. We will also get neuropsych testing. I will update her with results of these tests. #1 Seizure Post Traumatic Non Epileptic (HCC) Plan: MRI of the brain, epilepsy protocol. Neuropsych testing documented in this encounter Plan of Treatment Not on file documented as of this encounter Results * MR Brain without and with IV Contrast (02/15/2025 1:35 PM CDT) Anatomical Region Laterality Modality Head, Brain, Neuroradiology RST LOS, Neuroradiology ARZ LOS, Neuroradiology FLA LOS N/A Magnetic Resonance Impressions 02/15/2025 2:13 PM CDT Motion degraded study. 1. 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 Possible tiny right skull base encephalocele. 2. No imaging findings to suggest quñionez matter heterotopia, hippocampal sclerosis or cortical dysplasia. Narrative 02/15/2025 2:13 PM CDT EXAM: MR BRAIN WITHOUT AND WITH IV CONTRAST COMPARISON: None FINDINGS: Some of the sequences are degraded secondary to motion. There is no evidence of any acute intracranial bleed, vascular distribution infarct or significant mass effect. There is no midline shift or hydrocephalus. Mild T1 shortening along the bilateral globus pallidus, possibly reflecting underlying hepatic insufficiency. Chronic bilateral cerebellar infarcts. Developmental venous anomaly involving the lennie in the midline. Mild bilateral periventricular leukoaraiosis. Sella and suprasellar structures are within normal limits. Major intracranial vascular flow voids are preserved. Symmetric appearance of bilateral hippocampi without definite imaging findings to suggest underlying hippocampal sclerosis. No evidence of underlying quiñonez matter heterotopia or cortical dysplasia. There is suggestion of a left medial temporal encephalocele (12-101, 102) with mild underlying volume loss and increased T2 signal of the herniating brain parenchyma. Possible tiny right skull base encephalocele (12-99) Unremarkable ocular globes and mastoid air cells. No significant paranasal sinus disease. Procedure Note Navarro Cuenca M.B.B.S., M.MED. - 02/15/2025 EXAM: MR BRAIN WITHOUT AND WITH IV CONTRAST COMPARISON: None FINDINGS: Some of the sequences are degraded secondary to motion. There isno evidence of any acute intracranial bleed, vascular distribution infarctor significant mass effect. There is no midline shift or hydrocephalus.Mild T1 shortening along the bilateral globus pallidus, possibly reflecting underlying hepaticinsufficiency. Chronic bilateral cerebellar infarcts. Developmental venousanomaly involving the lennie in the midline. Mild bilateral periventricularleukoaraiosis. Sella and suprasellar structures are within normal limits. Major intracranial vascular flowvoids are preserved. Symmetric appearance of bilateral hippocampi without definite imagingfindings to suggest underlying hippocampal sclerosis. No evidence ofunderlying quiñonez matter heterotopia or cortical dysplasia. There issuggestion of a left medial temporal encephalocele (-101, 102) with mild underlying volume loss and increasedT2 signal of the herniating brain parenchyma. Possible tiny right skullbase encephalocele () Unremarkable ocular globes and mastoid air cells. No significant paranasalsinus disease. IMPRESSION: Motion degraded study. 1. 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 Possible tiny right skull base encephalocele. 2. No imaging findings to suggest quiñonez matter heterotopia, hippocampalsclerosis or cortical dysplasia. Cheyenne Cardona M.D. [facility] PROCEDURES Final Res ult documented in this encounter Visit Diagnoses Diagnosis Seizure Post Traumatic Non Epileptic (HCC)- Primary Seizure Post Traumatic Non Epileptic (HCC) documented in this encounter Additional Health Concerns Assessment Noted Time PHQ-9 Depression Total Score: 12 025 10:01 AM CDT documented as of this encounter Care Teams Data Entry Processor Relationship Specialty Start Date End Date Elsewhere, Pcp PCP - General Internal Medicine 12/28/24 documented as of this encounter
--- OUTSIDE RECORDS SUMMARY | 2025-02-15 11:47 | XMS_ITS | Encounter Summary ---
Author Organization [facility] Address [address] [place] [address] Care Team Providers Care Route Manager Name Role Phone Elsewhere, Pcp Primary Care Provider Unavailabl e Reason for Referral * MRI/CAT/PET Scan (Routine) - Closed Specialty Diagnoses / Procedures Referred By Contac t Referred To Contact Radiology Diagnoses Seizure Post Traumatic Non Epileptic (HCC) Procedures MR Brain without and with IV Contrast Cheyenne Cardona M.D. [address] [place] [address] Phone: tel: fax: [facility] Referral ID Status Reason Start Date Expiration Date Visits Re quested Visits Authorized [id number] Closed 02/08/2025 05/11/2026 1 1 Reason for Visit * MRI/CAT/PET Scan (Routine) - Closed Specialty Diagnoses / Procedures Referred By Contac t Referred To Contact Radiology Diagnoses Seizure Post Traumatic Non Epileptic (HCC) Procedures MR Brain without and with IV Contrast Cheyenne Cardona M.D. [address] [place] [address] Phone: tel: fax: [facility] Referral ID Status Reason Start Date Expiration Date Visits Re quested Visits Authorized [id number] Closed 02/08/2025 05/11/2026 1 1 Encounter Details Date Type Department Care Team (Latest Contact Info) Description 02/15/2025 11:47 AM CDT - 02/15/2025 11:59 PM CDT Hospital Encounter Department of Radiology, [facility] in [place], [place] [address] [place] [address] Cheyenne Cardona M.D. [address] [place] [address] Seizure Post Traumatic Non Epileptic (HCC) Discharge Disposition: Home or Self Care Social History Tobacco Use Types Packs/Day Years Used Date Smoking Tobacco: Every Day Cigarettes 0.5 40.7 Started: 08/09/1985 Passive Smoke Exposure: Never Smokeless Tobacco: Never Alcohol Use Standard Drinks/Week Comments Not Currently 0 (1 standard drink = 0.6 oz pur e alcohol) [facility] Utilities Answer Date Recorded In the [...] Sex Assigned at Female 09/14/2023 4:26 PM DIRECTOR OF OUTPATIENT SERVICES Legal Sex Female 11:56 AM DIRECTOR OF OUTPATIENT SERVICES Gender Identity Female 09/14/2023 4:26 PM DIRECTOR OF OUTPATIENT SERVICES Sexual Orientation Straight 09/14/2023 4: 26 PM DIRECTOR OF OUTPATIENT SERVICES documented as of this encounter Medications at Time of Discharge albuterol 90 mcg/actuation inhaler INHALE 2 PUFFS BY MOUTH EVERY 6 HOURS NEEDED FOR WHEEZING 18 g 3 12/19/2024 benzonatate (Tessalon Perles) 100 mg capsuleIndicatio ns:Cough Acute Take 1 capsule (100 mg total) by mouth 3 (three) times a day as needed for cough. 20 capsule 11/27/2024 ferrous gluconate (Fergon) 324 mg (38 mg iron) tablet Take 324 mg by mouth daily with morning meal. 12/05/2024 folic acid 400 mcg tablet 400 mcg daily. 03/21/2021 hydrOXYzine (Atarax) 25 mg tabletIndication s:Depression Major Recurrent Mild Take 1-2 tablets (25-50 mg total) by mouth as needed for anxiety. 30 tablet 3 10/13/2024 levETIRAcetam (Keppra) 1,000 mg tablet TAKE 1 TABLET(1000 MG) BY MOUTH TWICE DAILY 180 tablet 3 09/12/2024 levETIRAcetam (Keppra) 250 mg tablet Take 250 mg by mouth. 10/10/2024 levothyroxine (Synthroid) 25 mcg tablet 25 mcg. Tue and thur 07/05/2023 levothyroxine (SYNTHROID, LEVOTHROID) 50 mcg tablet 50 mcg. Mon, Wed, Fri Sat and Sun 05/19/2016 magnesium oxide (MAG-OX) 400 mg (241.3 mg magnesium) tablet 1 tablet. 05/17/2021 medical cannabis capsule 3 capsules daily. 03/25/2021 melatonin 3 mg tablet Take 3 mg by mouth at bedtime. 11/01/2020 omeprazole (PriLOSEC) [address] capsule Take 1 capsule by mouth daily. 04/07/2021 pregabalin (Lyrica) 50 mg capsule Take 1 capsule (50 mg total) by mouth 2 (two) times a day. 60 capsule 01/18/2025 rifAXIMin (XIFAXAN) 550 mg tablet 550 mg 2 (two) times a day. 11/22/2020 Vitamin B-1, mononitrate, 100 mg tablet 08/07/2023 Vitamin D3 50 mcg (2,000 unit) tablet Take 50 mcg by mouth daily. Repatha SureClick 140 mg/mL pen injector injection ADMINISTER 1 ML(140 MG) UNDER THE SKIN EVERY 14 DAYS 2 mL 2 11/16/2024 documented as of this encounter Plan of Treatment Not on file documented as of this encounter Procedures Procedure Name Priority Date/Time Associated Diagnosis Comments MR BRAIN WITHOUT AND WITH IV CONTRAST RAD - Routine (most inpatients and all outpatients) 02/15/2025 1:35 PM CDT Seizure Post Traumatic Non Epileptic (HCC) documented in this encounter Results * MR Brain without [...] imaging findings to suggest quiñonez matter heterotopia, hippocampal sclerosis or cortical dysplasia. [...] parenchyma. Possible tiny right skull base encephalocele (1299) Unremarkable ocular globes and mastoid air cells. [...] issuggestion of a left medial temporal encephalocele (12-101, 102) with mild underlying volume loss and increasedT2 signal of the herniating brain parenchyma. Possible tiny right skullbase encephalocele (12-99) Unremarkable ocular globes and mastoid air cells. No significant paranasalsinus disease. IMPRESSION: Motion degraded study. 1. 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 Possible tiny right skull base encephalocele. 2. No imaging findings to suggest quiñonez matter heterotopia, hippocampalsclerosis or cortical dysplasia. us Cheyenne Cardona M.D. [facility] PROCEDURES Final Res ult documented in this encounter Visit Diagnoses Diagnosis Seizure Post Traumatic Non Epileptic (HCC) documented in this encounter Administered Medications Inactive Administered Medications - up to 3 most recent administrations Medication Order MAR Action Action Date Dose Rate Site gadobutrol injection 0.01-30 mL (Gadavist) 0.01-30 mL, intravenous, Once in imaging, contrast, Starting on Shayla 02/15/25 at 1327, For 1 dose, Imaging Protocol Orders, Dose per Radiant Medication Guidelines Intrathecal doses greater than 0.25 mL not recommended. Given 02/15/2025 1:27 PM CDT 6 mL documented in this encounter Additional Health Concerns Assessment Noted Time PHQ-9 Depression Total Score: 12 11/24/2 025 10:01 AM CDT documented as of this encounter Care Teams Route Manager Relationship Specialty Start Date End Date Elsewhere, Pcp PCP - General Internal Medicine 12/28/24 documented as of this encounter
--- OUTSIDE RECORDS SUMMARY | 2025-02-16 11:30 | XMS_ITS | Encounter Summary ---
Author Organization [facility] Address [address] [place] [address] Care Team Providers Care Business Development Assistant Name Role Phone Barry Kilpatrick MD Unavailable Michelle Henderson RN Unavailable [phone] Rio Jaquez MD Unavailable [phone] Jemima Jaramillo MD Unavailable Unavai Kelley Bautista RN Unavailable [phone] Sydnee Saleem MD Unavailable [phone] Karlene Moya MD Unavailable [phone] Wilbert Quintero OD Unavailable [phone] Rod Gauthier DPM Unavailable [phone] Jan Mahmood MD Unavailable [phone] Brandt Quintana MD Unavailable [phone] Jan Mahmood MD Unavailable [phone] Dom Eason MD Unavailable [phone] Jaimie Vernon RN Unavailable Unavailable Marquise Hanley MD Unavailable [phone] Vlad Ramey MD Unavailable [phone] Joesph Crowe MD Unavailable Michelle Padilla RN Unavailable Unavaila ble Marquise Hanley MD Unavailable [phone] Wagner Oliver MD Unavailable [phone] Joesph Crowe MD Unavailable Adonay Haq MD Unavailable [phone] Ruth RiddleM, Podiatry /Foot and Ankle Surgery Unavailable Omar Carmona MD Primary Care Provider [phone] Jignesh Mathias MD Unavailable Omar Carmona MD Unavailable [phone] Jason Alvares MD Unavailable Jignesh Mathias MD Unavailable Reason for Visit * Rehab Therapy Physical Therapy (Routine: Next available opening) - Authorized Specialty Diagnoses / Procedures Referred By Good zhu Referred To Contact Physical Therapy Diagnoses Mixed stress and urge urinary incontinence [facility] [address] [place] [phone] Phone: tel: Referral ID Status Reason Start Date Expiration Date V isits Requested Visits Authorized [id number] Authorized 01/31/2025 08/08/2025 60 60 Encounter Details Date Type Department Care Team (Latest Contact Info) Description 02/16/2025 11:30 AM CDT Virtual Visit [facility] [address] [place] [address] [place] [address] [place] [address] Mixed stress and urge urinary incontinence (Primary Dx) Social History Tobacco Use Types Packs/Day Years Used Date Smoking Tobacco: Every Day Cigarettes 0.5 42.6 Started: 08/09/1982 Other Smokeless Tobacco: Never Comments:12 PPD Alcohol Use Standard Drinks/Week Comments Not [...] than three times a week 08/27/2021 Attends Islam Services Not on file 08/27 Do you belong to any clubs o r organizations such as gnosticism groups, unions, fraternal or athletic groups, or [...] Answer Date Recorded PHQ-2 Score 3 12/04/2024 [facility] - Occupational [...] in an abandoned building, in an overnight group home, or couch-surfing.) Yes 07/12/2023 Are you [...] Sex Assigned at Female 09/12/2020 12:05 PM [employer] Legal Sex Female 3:26 AM [employer] Gender Identity Female 09/12/2020 12:05 PM [employer] Sexual Orientation Straight 12/19/2021 10 :44 AM CDT Occupation Industry Job Start Date Job End Date on disability for FMS Not on file Not on file Not on file disabled Not on file Not on file Not on file documented as of this encounter Progress Notes * Roxana Montoya, PT - 02/16/2025 11:30 AM CDT PHYSICAL THERAPY EVALUATION Type of Visit: Evaluation Fall Risk Screen: Have you fallen 2 or more times in the past year?: Yes Have you fallen and had an injury in the past year?: Yes Is patient receiving Physical Therapy Services?: Yes Subjective Started in 2020 when she was in the hospital and rehab for MRSA. At that time she had fecal incontinence, but that has improved. Having more issues with frequency of urination and with urgency - will see the house and then leak urine. Reporting going [id number] anytime she is near a bathroom. Getting incontinence during sleep - waking up wet, but this has been improving. Reporting history of CVA and scar tissue in the brain and was told this contributes to the bladder issues. Presenting condition or subjective complaint: Can't control urination, do have hernia lower abdomen Date of onset: 01/16/25 (date of PT orders) Relevant medical history: Anemia; Arthritis; Bladder or bowel problems; Chest pain; Concussions; Depression; Dizziness; Fibromyalgia; Foot drop; Heart problems; High blood pressure; Incontinence; Kidney disease; Menopause; Mental Illness; Migraines or headaches; Neck injury; Osteoporosis; Pain at night or rest; Progressive neurological deficits; Seizures; Severe headaches; Significant weakness; Sleep disorder like apnea; Smoking; Stroke; Substance use disorder; Thyroid problems; Vision problems Dates & types of surgery: appendix 87. cyst 89, ovary removal when I was 34 Prior diagnostic imaging/testing results: Prior therapy history for the same diagnosis, illness or injury: No Prior Level of Function Transfers: Independent Ambulation: Assistive equipment, use of cane normally or wc in big crowds ADL: Assistive equipment, at times IADL: Independent Living Environment Social support: Alone Type of home: House Stairs to enter the home: Yes 2 Is there a railing: Yes Ramp: No Stairs inside the home: Yes 14 Is there a railing: No Help at home: None Equipment owned: Four-point cane; Walker with wheels; Standard wheelchair; Grab bars; Raised toiletseat; Bath bench Employment: No Hobbies/Interests: Horses, animals, socializing, Wild Hockey Patient goals for therapy: Not wear diapers Objective PELVIC EVALUATION ADDITIONAL HISTORY: Sex assigned at : Female Gender identity: Female Pronouns: She/Her Hers Bladder History: Feels bladder filling: No Triggers for feeling of inability to wait to go to the bathroom: Yes Being close to the bathroom, sleeing How long can you wait to urinate: depends Gets up at night to urinate: Yes 2 Can stop the flow of urine when urinating: Sometimes Volume of urine usually released: Medium Other issues: Slow or hesitant urine stream; Dribbling after urinating Number of bladder infections in last 12 months: Fluid intake per day: 2 bottles 4 cups Medications taken for bladder: No Activities causing urine leak: Cough; Sneeze; Hurrying to the bathroom due to a strong urge to urinate (pee) Amount of urine typically leaked: little, butsometimes I can't hold it Pads used to help with leaking: No Bowel History: Frequency of bowel movement: 2 times a day Consistency of stool: Soft-formed Ignores the urge to defecate: No Other bowel issues: Loss of stool Length of time spent trying to have a bowel movement: Sexual Function History: Sexual orientation: Straight Sexually active: No Lubrication used: No No Pelvic pain: Walking; Standing; Sitting; Pelvic exams Pain or difficulty with orgasms/erection/ejaculation: No State of menopause: Post-menopause (I am done with menopause) Hormone medications: No Are you currently : No Number of previous pregnancies: 1 Number of deliveries: 1 If you have delivered before, did you have any of these issues during delivery: Episiotomy; Vaginaldelivery Have you been diagnosed with pelvic prolapse or abdominal separation: No Do you get regular exercise: Yes I do this type of exercise: walking, dancing Have you tried pelvic floor strengthening exercises for 4 weeks: No Do you have any history of trauma that is relevant to your care that you???d like to share: No Discussed reason for referral regarding pelvic health needs and external/internal pelvic floor muscle examination with patient/guardian. Opportunity provided to ask questions and verbal consent for assessment and intervention was given. Objective: Impaired posture - flexed trunk. Reports of L hemibody weakness. Use of cane for ambulation. Deferral for physical objective examination due to nature of virtual visit. Pt agreeable to pelvic assessment at next visit in person. Assessment & Plan CLINICAL IMPRESSIONS Medical Diagnosis: Mixed stress and urge urinary incontinence Treatment Diagnosis: Urge incontinence, urgency Impression/Assessment: Patient is a 54 year old female with urinary stress incontinence and urgencycomplaints. The following significant findings have been identified: Decreased joint mobility, Decreased strength, Impaired balance, Impaired sensation, Impaired muscle performance, Decreased activity tolerance, and Impaired posture. These impairments interfere with their ability to perform self care tasks, recreational activities, [employer], driving , household mobility, and community mobility as compared to previous level of function. Clinical Decision Making (Complexity): Clinical Presentation: Stable/Uncomplicated Clinical Presentation Rationale: based on medical and personal factors listed in PT evaluation Clinical Decision Making (Complexity): Low complexity PLAN OF CARE Treatment Interventions: Modalities: Biofeedback, Cryotherapy, Cupping, Dry Needling, E-stim, Hot Pack, Ultrasound Interventions: Gait Training, Manual Therapy, Neuromuscular Re-education, Therapeutic Activity, Therapeutic Exercise, Self-Care/Home Management Shelter Goals PT Goal 1 Goal Identifier: Continence Goal Description: She will report ability to maintain urine continence and reduced urgency when coming home. Rationale: to maximize safety and independence with performance of ADLs and functional tasks;to maximize safety and independence within the home;to maximize safety and independence within the community;to maximize safety and independence with transportation;to maximize safety and independence with self cares Target Date: 04/27/25 Frequency of Treatment: 1x/week Duration of Treatment: 10 weeks Education Assessment: Learner/Method: Patient;No Barriers to Learning;Listening;Reading;Demonstration;Pictures/Video Education Comments: Educated the patient on HEP with demonstration/picture/verbal instruction. Educated on role of PT and recommended POC. Reviewed goals. Pt reported understanding. Risks and benefits of evaluation/treatment have been explained. Patient/Family/caregiver agrees with Plan of Care. Evaluation Time: PT Hayden Gallegos Minutes (07750): 10 Signing Clinician: Roxana Montoya, PT [facility] OUTPATIENT PHYSICAL THERAPY PLAN OF TREATMENT FOR OUTPATIENT REHABILITATION Patient's Last Name, First Name, Omar Wright AnnshantelCarol Date of : 1970 Provider's Name [facility] Onset Date: 01/16/25 (date of PT orders) Start of Care Date: 02/16/25 Medical Diagnosis: Mixed stress and urge urinary incontinence PT Treatment Diagnosis: Urge incontinence, urgency Plan of Treatment Frequency/Duration: 1x/week/ 10 weeks Certification date from 02/16/25 to 04/27/25 See note for plan of treatment details and functional goals Roxana Montoya, PT I CERTIFY THE NEED FOR THESE SERVICES FURNISHED UNDER THIS PLAN OF TREATMENT AND WHILE UNDER MY CARE (Physician attestation of this document indicates review and certification of the therapy plan). Referring Provider: Jason Alvares Initial Assessment See Epic Evaluation- Start of Care Date: 02/16/25 Cosigned by Jason Alvares MD at 02/16/2025 2:56 PM CDT Associated attestation - Jason Alvares MD - 02/16/2025 2:56 PM CDT I agree with the treatment and plan. documented in this encounter Plan of Treatment Upcoming Encounters Date Type Department Care Team (Late st Contact Info) Description 03/26/2025 11:00 AM CDT Therapy Visit [facility] [address] [place] [phone] Jason Alvares MD [address] [place] [address] [phone] Chaya Castillo OTR [address] [address] 03/29/2025 10:30 AM CDT Therapy Visit [facility] Special[facility] [place] [address] [place] [phone] [place] [address] [place] [address] 04/02/2025 11:00 AM CDT Therapy Visit [facility] [address] [place] [phone] Jason Alvares MD [address] [place] [phone] Chaya Castillo OTR [facility] [address] [place] [address] 04/11/2025 12:30 PM CDT Office Visit [facility] Primary [address] 4th [place] [phone] Oamr Carmona MD [address] [place] [address] 04/12/2025 2:15 PM CDT Therapy Visit [facility] [address] [place] [phone] Jason Alvares MD [address] [place] [address] Chaya Castillo OTR [facility] [address] [place] [address] 04/16/2025 11:00 AM CDT [facility] [address] [place] [phone] Jason Alvares MD [address] [place] [address] Chaya Castillo OTR [facility] [address] [place] [address] 04/23/2025 11:00 AM CDT [facility] [address] [place] [address] Jason Alvares MD [address] [place] [address] Chaya Castillo OTR [facility] [address] [place] [address] 04/30/2025 11:00 AM CDT Therapy Visit [facility] [address] [place] [phone] Jason Alvares MD [address] [facility] [address] [place], [place] [phone] CastilloChaya, OTR [address] [address] 05/15/2025 12:30 PM CDT Office Visit [address] [phone] Marquise Hanley MD [address] [place] [phone] 06/08/2025 9:15 AM CDT Office Visit [facility] Hepatology [address] [phone] Jignesh Mathias MD [address] [place] [address] [phone] 11/05/2025 1:45 PM CDT Office Visit [facility] Dermatology Clinic [address]rd [place] [address] Gavi Nieto PA-C Dermatology [address] [place] [address] [phone] documented as of this encounter Goals Goal Patient Goal Type Associated Problems Recent Progress Patient-Stated? Author Quit smoking / using tobacco Lifestyle Rio Will MD Note: 06/25/14 planned quit date documented as of this encounter Visit Diagnoses Diagnosis Mixed stress and urge urinary incontinence- Primary Mixed incontinence urge and stress (male)(female) documented in this encounter Additional Health Concerns Infection Onset Date Last Indicated Resolved Time MRSA Comment:Added from external infection. 10/23/2020 10/21/2020 Assessment Noted Time PHQ-9 Depression Total Score: 11 12/03/ 025 7:34 PM CDT documented as of this encounter Care Teams Business Development Assistant Relationship Specialty Start Date End Date Omar Carmona MD [address] [place] [address] [phone] PCP - General Family Medicine 07/14/24 Barry Kilpatrick MD [address] [place] [address] [id number] [place], [place] [phone] Neurology 07/19/14 Michelle Henderson I, RN Nurse Coordinator Neurology 07/19/14 Rio Jaquez MD [address] [place] [address] [phone] Family Practice 10/15/14 Jemima Jaramillo MD [address] [place] [address] buffer copper 11/20/14 Kelley Chin, TANIA [address] [phone] Nurse Coordinator Cardiology 11/04/15 Sydnee Saleem MD [address] [place] [address] [address] [place], [place] 128955 Cardiology 11/04/15 Karlene Moya MD [address] [place] [address] 112715 Ophthalmology 06/24/17 Wilbert Quintero, OD [address] [place] [address] [phone] Optometry 06/24/17 Rod Gauthier DPM [address] [place] [address] Thickener Operator Primary Podiatric Medicine 06/21/18 Jan Mahmood MD [address] [place] [address] Gastroenterology 11/05/20 Brandt Quintana MD [address] [place] [address] Resident 11/05/20 Jan Mahmood MD [address] [place] [address] Assigned Gastroenterology Provider 12/01/20 Dom Eason MD [address] [place] [address] Internal Medicine 12/02/20 Jaimie Vernon, RN Specialty Gravity Meter Observer Cardiology 10/28/21 Marquise Hanley MD [address] [place] [address] Endocrinology, Diabetes, and Metabolism 03/05/22 Vlad Ramey MD [address] [place] [address] Cardiovascular Disease 05/07/22 Joesph Crowe MD [address] [place] [address] Surgery 05/07/22 Michelle Padilla, RN Specialty Gravity Meter Observer Cardiology 07/03/22 Marquise Hanley MD [address] [place] [address] Assigned Endocrinology Provider 08/15/22 Wagner Oliver MD [address] [place] [address] Critical Care 12/15/22 Joesph Crowe MD [address] [place] [address] [phone] Surgery 03/17/23 Adonay Haq MD [address] [place] [address] [phone] Internal Medicine 06/14/23 Ruth Riddle DPM, Podiatry/Foot and Ankle Surgery [address] 457307 Assigned Musculoskeletal Provider 10/22/23 Jignesh Mathias MD [address] [place] [address] [phone] Gastroenterology 09/25/24 Omar Carmona MD [address] [place] [address] [phone] Assigned PCP 12/29/24 Jason Alvares MD [address] [place] [address] Assigned Neuroscience Provider 12/29/24 Jignesh Mathisa MD [address] [place] [address] Assigned Surgical Provider 12/29/24 documented as of this encounter
--- OUTSIDE RECORDS SUMMARY | 2025-02-20 12:30 | XMS_ITS | Encounter Summary ---
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 average range cognitive baseline. RECOMMENDATIONS Results and recommendations of this evaluation were shared with Ms. Kyle Arellano in-person on 02/20/2025, following her appointment. She is encouraged to speak with her medical providers regarding any of the referrals suggested below. Ms. Kyle Arellano reported severe symptoms of depression and anxiety, despite current mental health treatment. She may consider increasing the frequency with which she meets with her psychotherapist. Additionally, while the exact modality of treatment should be left to her therapist, she may benefit from a trauma- informed, cognitive behavioral approach that focuses on stress management strategies. Further, she is encouraged to consult with her psychiatrist to optimize medication management of her mood and anxiety symptoms. Daily cannabis use may interfere with cognitive functioning, particularly attention/working memory,processing speed, and executive functioning. She may consider reducing her cannabis use to optimizecognitive efficiency should her cognitive difficulties become more bothersome to her. 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 She is encouraged to continue abstainingfrom alcohol. Given her history of nutritional deficiencies and reduced appetite, Ms. Kyle Arellano may benefit from a referral to a digital production manager. A referral to sleep medicine may be considered to ensure adequate treatment of Ms. Kyle Arellano'ssleep apnea. One option for this service is through [facility] service at [email or web address]. Given her reported sleep difficulties, the following sleep hygiene strategies from the National Sleep Foundation may be helpful: Avoid stimulants such as caffeine at least 8 hours before bedtime. Exercise can promote good sleep. Vigorous exercise should be done in the morning or late afternoon.A relaxing exercise (e.g., light stretching, yoga, meditation, deep breathing) or other relaxing activity (e.g., listening to soft music, reading) can be done before bed to help initiate a restful night's sleep. Establish a regular, relaxing bedtime routine. Try to avoid emotionally upsetting conversations andactivities before trying to go to sleep. Try not to dwell on or bring your problems to bed. Optimize your bedroom with a comfortable mattress, pillow, and bedding; use heavy curtains or an eye mask to prevent light from interrupting your sleep. Light smells, such as lavender, can induce a calmer state of mind and cultivate a positive space for sleep. The room should not be too hot, too cold, or too bright. Avoid bright lights and electronics at least 30 minutes before bed. Food can be disruptive right before sleep; stay away from large meals, spicy dishes, and chocolate close to bedtime. Ensure adequate exposure to natural light during the day. Light exposure helps maintain a healthy sleep-wake cycle. Associate your bed with sleep. Try to avoid using your bed to watch TV or read. If you can't fall asleep, get out of bed and do another relaxing activity for a while. Keep naps short and limited to the early afternoon. For additional information, a simple set of guidelines can be found here: https://www.sleepfoundation.org/sleep-topics/sleep-hygiene It is recommended that Ms. Kyle Arellano stay cognitively, socially, and physically active (as able and in consultation with her medical providers), eat a healthy diet, and continue working closely with her treatment team to monitor and manage her chronic health conditions to promote cognitive health and reduce risk of further cognitive decline. The following compensatory strategies are recommended to optimize daily cognitive functioning: Use external aids to increase structure in daily life. Use of compensatory strategies such as notes, lists, and a centralized calendar are supported. Tools such as smart phones with alarms and reminders are helpful in bringing structure to daily activities. Take the time needed to learn and recall information. Some people tend to worry if they can't immediately recall something. Instead, you should take time to express a thought or complete a task rather than be critical of or harsh on yourself. Keep a set daily schedule and routine for activities (e.g., keep a routine bedtime). Make daily to-do lists, and set small, attainable goals to have tangible tasks to work toward. Process information that needs to be retained both visually (e.g., write it down) and verbally (e.g., repeat it aloud). Repeat and/or provide context to information that you need to remember (e.g., make up a story or mnemonic device). Place visual cues in highly visible locations to remember important tasks/information. The results of the current evaluation constitute an updated baseline of Ms. Kyle Arellano's cognitive and emotional functioning. Should cognitive difficulties persist with improvements in her physical and mental health, another referral may be placed to document any changes in cognitive functioning, clarify the diagnosis and etiology, and provide further recommendations and prognosis to Ms. Rm and her treatment team. Kasie Alan, Ph.D., L.P. Postdoctoral Neuropsychology Fellow Ayad Lopez, Ph.D., L.P., ABPP Board Certified in Clinical Neuropsychology Direct Care Worker / Licensed Psychologist [id number] All services provided by the postdoctoral fellow were supervised by this licensed psychologist. Allbilling noted here is for professional services provided by the psychologist and the demolitionist. Activities included in this evaluation: CPT Code # of Units Time (min) Psychiatric diagnostic interview 47204 1 -- Test evaluation services by professional; first hour 67343 1 75 Test evaluation services by professional; additional hour (+) 73630 0 Test administration & scoring by alarm field technician; first 30 mins 67731 1 116 Test administration & scoring by alarm field technician; additional 30 mins (+) 54669 3 Diagnoses: S09.90XA, R56.9, F33.2, F41.1, F06.8. documented in this encounter Plan of Treatment Upcoming Encounters Date Type Department Care Team (Late st Contact Info) Description 03/26/2025 11:00 AM CDT [facility] [address] [facility] [place] [place] [address] Jason Alvares MD [address] [place] [address] [phone] Chaya Castillo, OTR [facility] [place] [address] [place] [address] 03/29/2025 10:30 AM CDT Therapy Visit [facility] [address] [place] [phone] [place] [address] [place], [place] 117167 04/02/2025 11:00 AM CDT [facility] [address] [place] [phone] Jason Alvares MD [address] [place] [place] [address] [phone] Chaya Castillo, OTR [facility] [facility] [address] [place] [address] 04/11/2025 12:30 PM CDT Office Visit [facility] [address] 4th [place] [phone] Omar Carmona MD [address] [place] [address] [phone] 04/12/2025 2:15 PM CDT Therapy Visit [facility] [address] [place] [phone] Jason Alvares MD [address] [place] [place] [address] [phone] Chaya Castillo OTR [facility] [place] [address] [place] [address] 04/16/2025 11:00 AM CDT Therapy Visit [facility] [address] [facility] [place] [place] [phone] Jason Alvares MD [address] [place] [place] [address] Chaya Castillo OTR [facility] [place] [address] [place] [address] 04/23/2025 11:00 AM CDT Therapy [facility] [address] [facility] [place] [phone] Jason Alvares MD [address] [place] [place] [address] Chaya Castillo OTR [facility] [address] [place] [address] 04/30/2025 11:00 AM CDT Therapy [facility] [address] [facility] [place] [place] [phone] Jason Alvares MD [address] [place] [place] [address] Chaya Castillo OTR [facility] [place] [address] [place] [address] 05/15/2025 12:30 PM CDT Office Visit [address] [phone] Marquise Hanley MD [address] [place] [address] 06/08/2025 9:15 AM CDT Office Visit [facility] [address] [phone] Jignesh Mathias MD [address] [place] [address] [phone] 11/05/2025 1:45 PM CDT Office Visit [facility] [address] 3rd [place] [address] Gavi Nieto PA-C Dermatology [address] [place] [address] [phone] documented as of this encounter Goals Goal Patient Goal Type Associated Problems Recent Progress Patient-Stated? Author Quit smoking / using tobacco Lifestyle Rio Will MD Note: 06/25/14 planned quit date documented as of this encounter Procedures Procedure Name Priority Date/Time Associated Diagnosis Comments CT PSYCL/NRPSYCL TST TECH 2+ TST EA ADDL 30 MIN Routine 02/25/2025 9:55 PM CDT Cognitive and behavioral changes Injury of head, sequela Seizure (H) 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) Generalized anxiety disorder Other specified mental disorders due to known physiological condition CT PSYCL/NRPSYCL TST TECH 2+ TST 1ST 30 MIN Routine 02/25/2025 9:55 PM CDT Cognitive and behavioral changes Injury of head, sequela Seizure (H) 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) Generalized anxiety disorder Other specified mental disorders due to known physiological condition CT NEUROPSYCHOLOGICAL TST EVAL PHYS/QHP 1ST HOUR Routine 02/25/2025 9:55 PM CDT Cognitive and behavioral changes Injury of head, sequela Seizure (H) 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) Generalized anxiety disorder Other specified mental disorders due to known physiological condition documented in this encounter Visit Diagnoses Diagnosis Injury of head, sequela- Primary Cognitive and behavioral changes Other signs and symptoms involving cognition Seizure (H) Other convulsions 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) Major depressive disorder, recurrent episode, severe, without mention of psychotic behavior Generalized anxiety disorder Other specified mental disorders due to known physiological condition documented in this encounter Additional Health Concerns Infection Onset Date Last Indicated Resolved Time MRSA Comment:Added from external infection. 10/23/2020 10/21/2020 Assessment Noted Time PHQ-9 Depression Total Score: 11 025 7:34 PM CDT documented as of this encounter Care Teams Last Sorter Relationship Specialty Start Date End Date Omar Carmona MD [address] [place] [address] [phone] PCP - General Family Medicine 07/14/24 Barry Kilpatrick MD [address] [place] [address] [id number] [place], [place] [phone] Neurology 07/19/14 Michelle Henderson I, RN Nurse Coordinator Neurology 07/19/14 Rio Jaquez MD [address] [place] [address] 975555 Family Practice 10/15/14 Jemima Jaramillo MD [address] [place] [address] 83811 energy management specialist 11/20/14 Kelley Chin, TANIA [address] 400455 Nurse Coordinator Cardiology 11/04/15 Sydnee Saleem MD [address] [place] [address] 508 [place], [place] [phone] Cardiology 11/04/15 Karlene Moya MD [address] [place] [address] Ophthalmology 06/24/17 Wilbert Quintero OD [address] [place] [address] Optometry 06/24/17 Rod Gauthier DPM [address] [place] [address] 22229 Biodiesel Division Manager Primary Podiatric Medicine 06/21/18 Jan Mahmood MD [address] [place] [address]39 Gastroenterology 11/05/20 Brandt Quintana MD [address] [place] [address] Resident 11/05/20 Jan Mahmood MD [address] [place] [address] 90123 Assigned Gastroenterology Provider 12/01/20 Dom Eason MD [address] [place] [address] 40339 Internal Medicine 12/02/20 Jaimie Vernon, RN Specialty Nurse Sane Cardiology 10/28/21 Marquise Hanley MD [address] [place] [address] 41476 Endocrinology, Diabetes, and Metabolism 03/05/22 Vlad Ramey MD [address] [place] [address] 34301 Cardiovascular Disease 05/07/22 Joesph Crowe MD [address] [place] [address] 14434 Surgery 05/07/22 Michelle Padilla, RN Specialty Nurse Sane Cardiology 07/03/22 Marquise Hanley MD [address] [place] [address] 70100 Assigned Endocrinology Provider 08/15/22 Wagner Oliver MD [address] [place] [address] Critical Care 12/15/22 Joesph Crowe MD [address] [place] [address] 26028 Surgery 03/17/23 Adonay Haq MD [address] [place] [address] 57636 Internal Medicine 06/14/23 Ruth Riddle DPVik, Podiatry/Foot and Ankle Surgery [address] [place] [address] Assigned Musculoskeletal Provider 10/22/23 Jignesh Mathias MD [address] [place] [address] 31836 Gastroenterology 09/25/24 Omar Carmona MD [address] [place] [address] 07896 Assigned PCP 12/29/24 Jason Alvares MD [address] [place] [address] 295 [place] [address] Assigned Neuroscience Provider 12/29/24 Jignesh Mathias MD [address] [place] [address] [phone] Assigned Surgical Provider 12/29/24 documented as of this encounter
--- OUTSIDE RECORDS SUMMARY | 2025-02-26 11:00 | XMS_ITS | Encounter Summary ---
Author Organization [facility] Address [address] [place] [address] 13[address] Care Team Providers Care Commercial Glazier Name Role Phone Barry Kilpatrick MD Unavailable Michelle Henderson RN Unavailable [phone] Rio Jaquez MD Unavailable [phone] Jemima Jaramillo MD Unavailable Unavai Kelley Bautista RN Unavailable [phone] Sydnee Saleem MD Unavailable [phone] Karlene Moya MD Unavailable [phone] Wilbert Quintero OD Unavailable [phone] Rod Gauthier DPM Unavailable [phone] Jan Mahmood MD Unavailable [phone] Brandt Quintana MD Unavailable Jan Mahmood MD Unavailable [phone] Dom Eason MD Unavailable [phone] Jaimie Vernon RN Unavailable Unavailable Marquise Hanley MD Unavailable [phone] Vlad Ramey MD Unavailable [phone] Joesph Crowe MD Unavailable Michelle Padilla RN Unavailable Unavaila ble Marquise Hanley MD Unavailable [phone] Wagner Oliver MD Unavailable [phone] Joesph Crowe MD Unavailable [phone] Adonay Haq MD Unavailable [phone] Ruth RiddleM, Podiatry /Foot and Ankle Surgery Unavailable Omar Carmona MD Primary Care Provider [phone] Jignesh Mathias MD Unavailable Omar Carmona MD Unavailable [phone] Jason Alvares MD Unavailable Jignesh Mathias MD Unavailable Reason for Visit * Rehab Therapy Occupational Therapy (Routine: Next available opening) - Authorized Specialty Diagnoses / Procedures Referred By Good zhu Referred To Contact Occupational Therapy Diagnoses Seizures, post-traumatic (H) [address] [address] Phone: tel: Referral ID Status Reason Start Date Expiration Date V isits Requested Visits Authorized [id number] Authorized 01/09/2025 08/08/2025 60 60 Encounter Details Date Type Department Care Team (Late st Contact Info) Description 02/26/2025 11:00 AM CDT Therapy Visit [facility] 150 [place] [phone] Jason Alvares MD [address] [facility] 295 [place], [place] [phone] Chaya Castillo, [facility] [address] [place] [address] Seizures, post-traumatic (H) (Primary Dx) Social History Tobacco Use Types [...] than three times a week 08/27/2021 Attends [employer] Not on file 08/27 Do you belong to any clubs o r organizations such as anabaptist groups, unions, fraternal or athletic groups, or [...] Answer Date Recorded PHQ-2 Score 3 12/04/2024 [facility] - Occupational Stress [...] in an abandoned building, in an overnight skilled nursing, or couch-surfing.) Yes 07/12/2023 Are you worried [...] Sex Assigned at Female 09/12/2020 12:05 PM TRANSPORTATION TECHNICIAN Legal Sex Female 3:26 AM TRANSPORTATION TECHNICIAN Gender Identity Female 09/12/2020 12:05 PM TRANSPORTATION TECHNICIAN Sexual Orientation Straight 12/19/2021 10 :44 AM CDT Occupation Industry Job Start Date Job End Date on disability for FMS Not on file Not on file Not on file disabled Not on file Not on file Not on file documented as of this encounter Plan of Treatment Upcoming Encounters Date Type Department Care Team (Late st Contact Info) Description 03/26/2025 11:00 AM CDT Therapy Visit [facility] 150 [place] [address] Jason Alvares MD [address] [place] [address] 295 [place], [place] [phone] Chaya Castillo, OTR [facility] [place] 150 [facility] [place] [address] 03/29/2025 10:30 AM CDT Therapy Visit [facility] [address] [place] [phone] [place] [address] [place] [address] 04/02/2025 11:00 AM CDT Therapy Visit [address] [phone] Jason Alvares MD [address] [place] [address] Chaya Castillo OTR [facility] [address] [place] [address] 04/11/2025 12:30 PM CDT Office Visit [facility] [address] [phone] Omar Carmona MD [address] [place] [address] 764985 04/12/2025 2:15 PM CDT Therapy Visit [facility] [address] [facility] [place] [phone] Jason Alvares MD [address] [place] [address] Chaya Castillo OTR [facility] [address] [place] [address] 04/16/2025 11:00 AM CDT Therapy Visit [facility] [address] [place] [phone] Jason Alvares MD [address] [place] [address] Chaya Castillo OTR [facility] [address] [place] [address] 04/23/2025 11:00 AM CDT [facility] [address] [place] [address] Jason Alvares MD [address] [place] [address] Chaya Castillo OTR [facility] [address] [place] [address] 04/30/2025 11:00 AM CDT Therapy Visit [facility] [address] [place] [address] Jason Alvares MD [address] [place] [address] Chaya Castillo OTR [facility] [address] [place] [address] 05/15/2025 12:30 PM CDT Office Visit [address] [address] Marquise aHnley MD [address] [place] [address] 06/08/2025 9:15 AM CDT Office Visit [facility] [address] [phone] Jignesh Mathias MD [address] [place] [address] [phone] 11/05/2025 1:45 PM CDT Office Visit [facility] [address] 3rd [place] [address] Gavi Nieto PA-C Dermatology [address] [place] [address] documented as of this encounter Goals Goal Patient Goal Type Associated Problems Recent Progress Patient-Stated? Author Quit smoking / using tobacco Lifestyle No Rio Jaquez MD Note: 06/25/14 planned quit date documented as of this encounter Visit Diagnoses Diagnosis Seizures, post-traumatic (H)- Primary Post traumatic seizures documented in this encounter Additional Health Concerns Infection Onset Date Last Indicated Resolved Time MRSA Comment:Added from external infection. 10/23/2020 10/21/2020 Assessment Noted Time PHQ-9 Depression Total Score: 11 025 7:34 PM CDT documented as of this encounter Care Teams Commercial Glazier Relationship Specialty Start Date End Date Omar Carmona MD [address] [place] [address] [phone] PCP - General Family Medicine 07/14/24 Barry Kilpatrick MD [address] [place] [address] [id number] [place], [place] 585195 Neurology 07/19/14 Michelle Henderson I, RN Nurse Coordinator Neurology 07/19/14 Rio Jaquez MD [address] [place] [address] [address] [place], [place] [phone] Family Practice 10/15/14 Jemima Jaramillo MD 9 [facility] 4 [place] [address] second worker 11/20/14 Kelley Chin, TANIA [facility] 9[address] [place], [place] 813535 Nurse Coordinator Cardiology 11/04/15 Sydnee Saleem MD [address] [place] [address] 508 [place], [place] [phone] Cardiology 11/04/15 Karlene Moya MD [address] [place] [address] [phone] Ophthalmology 06/24/17 Wilbert Quintero, OD [address] [place] [address] [phone] Optometry 06/24/17 Rod Gauthier DPM [address] [place] [address] 057955 Office Automation Clerk Primary Podiatric Medicine 06/21/18 Jan Mahmood MD [address] [place] [address] Gastroenterology 11/05/20 Brandt Quintana MD [address] [place] [address] [phone] Resident 11/05/20 Jan Mahmood MD [address] [place] [address] 40636 Assigned Gastroenterology Provider 12/01/20 Dom Eason MD [address] [place] [address] 49[address] Internal Medicine 12/02/20 Jaimie Vernon, RN Specialty Electrician Shop Cardiology 10/28/21 Marquise Hanley MD [address] [place] [address] 21485 Endocrinology, Diabetes, and Metabolism 03/05/22 Vlad Ramey MD [address] [place] [address] 95418 Cardiovascular Disease 05/07/22 Joesph Crowe MD [address] [place] [address] 39636 MD Surgery 05/07/22 Michelle Padilla, RN Specialty Electrician Shop Cardiology 07/03/22 Marquise Hanley MD [address] [place] [address] 87686 Assigned Endocrinology Provider 08/15/22 Wagner Oliver MD [address] [place] [address] Critical Care 12/15/22 Joesph Crowe MD [address] [place] [address] 74441 Surgery 03/17/23 Adonay Haq MD [address] [place] [address]40 Internal Medicine 06/14/23 Ruth Riddle DPM, Podiatry/Foot and Ankle Surgery [address] [place] [address] Assigned Musculoskeletal Provider 10/22/23 Jignesh Mathias MD [address] [place] [address] Gastroenterology 09/25/24 Omar Carmona MD [address] [place] [address] 35807 Assigned PCP 12/29/24 Jason Alvares MD [address] [place] [address] 36751 Assigned Neuroscience Provider 12/29/24 Jignesh Mathias MD [address] [place] [address] 64064 Assigned Surgical Provider 12/29/24 documented as of this encounter
--- OUTSIDE RECORDS SUMMARY | 2025-03-05 11:00 | XMS_ITS | Encounter Summary ---
Author Organization [facility] Address [address] [place] [address] Care Team Providers Care Telehealth Director Name Role Phone Barry Kilpatrick MD Unavailable Michelle Henderson RN Unavailable [phone] Rio Jaquez MD Unavailable [phone] Jemima Jaramillo MD Unavailable Unavai Kleley Bautista RN Unavailable [phone] Sydnee Saleem MD Unavailable [phone] Karlene Moya MD Unavailable [phone] Wilbert Quintero OD Unavailable +[phone] Rod Gauthier DPM Unavailable [phone] Jan Mahmood MD Unavailable [phone] Brandt Quintana MD Unavailable Jan Mahmood MD Unavailable [phone] Dom Eason MD Unavailable +[phone] Jaimie Vernon RN Unavailable Unavailable Marquise Hanley MD Unavailable +[phone] Vlad Ramey MD Unavailable +[phone] Joesph Crowe MD Unavailable [phone] Michelle Padilla RN Unavailable Unavaila ble Marquise Hanley MD Unavailable +[phone] Wagner Oliver MD Unavailable [phone] Joesph Crowe MD Unavailable [phone] Adonay Haq MD Unavailable [phone] Ruth RiddleM, Podiatry /Foot and Ankle Surgery Unavailable Omar Carmona MD Primary Care Provider [phone] Jignesh Mathias MD Unavailable Omar Carmona MD Unavailable Jason Alvares MD Unavailable Jignesh Mathias MD Unavailable Ayad Lopez PhD LP Unavailable Reason for Visit * Rehab Therapy Occupational Therapy (Routine: Next available opening) - Authorized Specialty Diagnoses / Procedures Referred By Good zhu Referred To Contact Occupational Therapy Diagnoses Seizures, post-traumatic (H) [address] [address] Phone: tel: Referral ID Status Reason Start Date Expiration Date V isits Requested Visits Authorized [id number] Authorized 01/09/2025 08/08/2025 60 60 Encounter Details Date Type Department Care Team (Late st Contact Info) Description 03/05/2025 11:00 AM CDT Therapy Visit [facility] [address] [place] [phone] Jason Alvares MD [address] [place] [address] 295 [place] [address] Chaya Castillo, [facility] 150 [place] [address] Seizures, post-traumatic (H) (Primary Dx) Social History [...] than three times a week 08/27/2021 Attends [employer] Not on file 08/27 Do you belong to any clubs o r organizations such as hinduism groups, unions, fraternal or athletic groups, or [...] Answer Date Recorded PHQ-2 Score 3 12/04/2024 [facility] - [...] in an abandoned building, in an overnight half-way, or couch-surfing.) Yes 07/12/2023 Are you worried [...] Sex Assigned at Female 09/12/2020 12:05 PM MACHINE SETUP OPERATOR Legal Sex Female 3:26 AM MACHINE SETUP OPERATOR Gender Identity Female 09/12/2020 12:05 PM MACHINE SETUP OPERATOR Sexual Orientation Straight 12/19/2021 10 :44 [...] Description 03/26/2025 11:00 AM CDT Therapy Visit [address] [address] Jason Alvares MD [address] [place] [address] Chaya Castillo OTR [facility] 150 [facility] [place] [address] 03/29/2025 10:30 AM CDT Therapy Visit [facility] [address] [place] [phone] [place] [address] [place] [address] 04/02/2025 11:00 AM CDT Therapy Visit [facility] [address] [place] [phone] Jason Alvares MD [address] [place] [address] Chaya Castillo OTR [facility] 150 [place] [address] 04/11/2025 12:30 PM CDT Office Visit [facility] [address] 4th [place] [phone] Omar Carmona MD [address] [place] [address] 04/12/2025 2:15 PM CDT Therapy Visit [facility] 150 [facility] [place] [phone] Jason Alvraes MD [address] [place] [address] Chaya Castillo OTR [facility] 150 [place] [address] 04/16/2025 11:00 AM CDT Therapy [facility] [address] [place] [address] Jason Alvares MD [address] [address] Chaya Castillo OTR [facility] 150 [place] [address] 04/23/2025 11:00 AM CDT Therapy Visit [address] [address] Jason Alvares MD [address] [place] [address] Chaya Castillo OTR [facility] 150 [place] [address] 04/30/2025 11:00 AM CDT Therapy Visit [address] [address] Jason Alvares MD [address] [place] [address] Chaya Castillo OTR [facility] [address] [place] [address] 05/15/2025 12:30 PM CDT Office Visit [address] [phone] Marquise Hanley MD [address] [place] [address] 06/08/2025 9:15 AM CDT Office Visit [facility] [address] [phone] Jignesh Mathias MD [address] [place] [address] 11/05/2025 1:45 PM CDT Office Visit [facility] [address] 3rd [place] [address] Gavi Nieto PA-C Dermatology [address] [place] [address] documented as of this encounter Goals Goal [...] documented as of this encounter Care Teams Telehealth Director Relationship Specialty Start Date End Date Omar Carmona MD [address] [place] [address] [phone] PCP - General Family Medicine 07/14/24 Barry Kilpatrick MD [address] [place] [address] [id number] [place] [address] Neurology 07/19/14 Michelle Henderson I, RN Nurse Coordinator Neurology 07/19/14 Rio Jaquez MD [address] [place] [address] Family Practice 10/15/14 Jemima Jaramillo MD [address] [place] [address] healthcare prof 11/20/14 Kelley Chin RN [address] [address] Nurse Coordinator Cardiology 11/04/15 Sydnee Saleem MD [address] [place] [address] 508 [place], [place] [phone] Cardiology 11/04/15 Karlene Moya MD [address] [place] [address] 322645 Ophthalmology 06/24/17 Wilbert Quintero, PETEY [address] [place] [address] 395615 Optometry 06/24/17 Rod Gauthier DPM [address] [place] [address] [employer] Supervisor Primary Podiatric Medicine 06/21/18 Jan Mahmood MD [address] [place] [address] [address] [place] [address] Gastroenterology 11/05/20 Brandt Quintana MD [address] [place] [address] Resident 11/05/20 Jan Mahmood MD [address] [place] [address] [address] [place] [address] Assigned Gastroenterology Provider 12/01/20 Dom Eason MD 717 [facility] 353 [place] [address] Internal Medicine 12/02/20 Jaimie Vernon, RN Specialty Letter Carrier Cardiology 10/28/21 Marquise Hanley MD [address] [place] [address] Endocrinology, Diabetes, and Metabolism 03/05/22 Vlad Ramey MD [address] [place] [address] Cardiovascular Disease 05/07/22 Joesph Crowe MD [address] [place] [address] Surgery 05/07/22 Michelle Padilla RN Specialty Letter Carrier Cardiology 07/03/22 Marquise Hanley MD [address] [place] [address] Assigned Endocrinology Provider 08/15/22 Wagner Oliver MD [address] [place] [address] Critical Care 12/15/22 Joesph Crowe MD [address] [place] [address] Surgery 03/17/23 Adonay Haq MD [address] [place] [address] 022895 Internal Medicine 06/14/23 Ruth Riddle, DPM, Podiatry/Foot and Ankle Surgery [address] [address] Assigned Musculoskeletal Provider 10/22/23 Jignesh Mathias MD [address] [place] [address] 515355 Gastroenterology 09/25/24 Omar Carmona MD [address] [place] [address] [phone] Assigned PCP 12/29/24 Jason Alvares MD [address] [place] [address] 067745 Assigned Neuroscience Provider 12/29/24 Jignesh Mathias MD [address] [place] [address] Assigned Surgical Provider 12/29/24 Ayad Lopez, PhD LP [address] [place] [address] Assigned Behavioral Health Provider 02/28/25 documented as of this encounter
--- OUTSIDE RECORDS SUMMARY | 2025-03-12 11:00 | XMS_ITS | Encounter Summary ---
Author Organization [facility] Address [address] [place] [address] Care Team Providers Care Italian Lecturer Name Role Phone Barry Kilpatrick MD Unavailable Michelle Henderson RN Unavailable [phone] Rio Jaquez MD Unavailable [phone] Jemima Jaramillo MD Unavailable Unavai Kelley Bautista RN Unavailable [phone] Sydnee Saleem MD Unavailable [phone] Karlene Moya MD Unavailable [phone] Wilbert Quintero OD Unavailable [phone] Rod Gauthier DPM Unavailable Jan Mahmood MD Unavailable [phone] Brandt Quintana MD Unavailable Jan Mahmood MD Unavailable [phone] Dom Eason MD Unavailable [phone] Jaimie Vernon RN Unavailable Unavailable Marquise Hanley MD Unavailable +[phone] Vlad Ramey MD Unavailable [phone] Joesph Crowe MD Unavailable Michelle Padilla RN Unavailable Unavaila ble Marquise Hanley MD Unavailable [phone] Wagner Oliver MD Unavailable [phone] Joesph Crowe MD Unavailable Adonay Haq MD Unavailable [phone] Ruth RiddleM, Podiatry /Foot and Ankle Surgery Unavailable Omar Carmona MD Primary Care Provider [phone] Jignesh Mathias MD Unavailable Omar Carmona MD Unavailable Jason Alvares MD Unavailable Jignesh Mathias MD Unavailable Ayad Lopez PhD LP Unavailable Reason for Visit * Rehab Therapy Occupational Therapy (Routine: Next available opening) - Authorized Specialty Diagnoses / Procedures Referred By Good zhu Referred To Contact Occupational Therapy Diagnoses Seizures, post-traumatic (H) [address] [address] Phone: tel: Referral ID Status Reason Start Date Expiration Date V isits Requested Visits Authorized [id number] Authorized 01/09/2025 08/08/2025 60 60 Encounter Details Date Type Department Care Team (Late st Contact Info) Description 03/12/2025 11:00 AM CDT Therapy Visit [facility] 150 [place] [phone] Jason Alvares MD [address] [place] [address] 295 [place] [address] Chaya Castillo, [facility] 150 [place] [address] Seizures, post-traumatic (H) (Primary Dx) Social History [...] than three times a week 08/27/2021 Attends [employer] Not on file 08/27 Do you belong to any clubs o r organizations such as catholic groups, unions, fraternal or athletic groups, or [...] Answer Date Recorded PHQ-2 Score 3 12/04/2024 [facility] - [...] in an abandoned building, in an overnight residential, or couch-surfing.) Yes 07/12/2023 Are you worried [...] Sex Assigned at Female 09/12/2020 12:05 PM RESOURCE AGENT Legal Sex Female 3:26 AM RESOURCE AGENT Gender Identity Female 09/12/2020 12:05 PM RESOURCE AGENT Sexual Orientation Straight 12/19/2021 10 :44 AM [...] Description 03/26/2025 11:00 AM CDT Therapy Visit [address] [phone] Jason Alvares MD [address] [place] [address] Chaya Castillo OTR [facility] 150 [facility] [place] [address] 03/29/2025 10:30 AM CDT Therapy Visit [facility] [address] [place] [phone] [place] [address] [place] [address] 04/02/2025 11:00 AM CDT Therapy Visit [facility] [address] [place] [phone] Jason Alvares MD [address] [place] [address] 823255 Chaya Castillo OTR [facility] 150 [place] [address] 04/11/2025 12:30 PM CDT Office Visit [facility] [address] 4th [place] [phone] Omar Carmona MD [address] [place] [address] 04/12/2025 2:15 PM CDT Therapy Visit [facility] [address] [facility] [place] [phone] Jason Alvares MD [address] [place] [address] Chaya Castillo OTR [facility] 150 [place] [address] 04/16/2025 11:00 AM CDT Therapy [facility] [address] [place] [address] Jason Alvares MD [address] [address] Chaya Castillo OTR [facility] 150 [place] [address] 04/23/2025 11:00 AM CDT Therapy Visit [address] [address] Jason Alvares MD [address] [place] [address] Chaya Castillo OTR [facility] 150 [place] [address] 04/30/2025 11:00 AM CDT Therapy Visit [address] [address] Jason Alvares MD [address] [place] [address] Chaya Castillo OTR [facility] 150 [place] [address] 05/15/2025 12:30 PM CDT Office Visit [address] [phone] Marquise Hanley MD [address] [place] [address] 06/08/2025 9:15 AM CDT Office Visit [facility] [address] [phone] Jignesh Mathias MD [address] [place] [address] 11/05/2025 1:45 PM CDT Office Visit [facility] [address] 3rd [place] [address] Gavi Nieto PA-C Dermatology [address] [place] [address] documented as of this encounter Goals [...] documented as of this encounter Care Teams Italian Lecturer Relationship Specialty Start Date End Date Omar Carmona MD [address] [place] [address] 498365 PCP - General Family Medicine 07/14/24 Barry Kilpatrick MD [address] [place] [address] [id number] [place] [address] Neurology 07/19/14 Michelle Henderson I, RN Nurse Coordinator Neurology 07/19/14 Rio Jaquez MD [address] [place] [address] Family Practice 10/15/14 Jemima Jaramillo MD [address] [place] [address] visiting professor 11/20/14 Kelley Chin RN [address] [address] Nurse Coordinator Cardiology 11/04/15 Sydnee Saleem MD [address] [place] [address] 508 [place], [place] [phone] Cardiology 11/04/15 Karlene Moya MD [address] [place] [address] [phone] Ophthalmology 06/24/17 Wilbert Quintero, PETEY [address] [place] [address] 499755 Optometry 06/24/17 Rod Gauthier DPM [address] [place] [address] Territory Sales Manager Primary Podiatric Medicine 06/21/18 Jan Mahmood MD [address] [place] [address] [address] [place] [address] Gastroenterology 11/05/20 Brandt Quintana MD [address] [place] [address] Resident 11/05/20 Jan Mahmood MD [address] [place] [address] [address] [place] [address] Assigned Gastroenterology Provider 12/01/20 Dom Eason MD 717 [facility] 353 [place] [address] Internal Medicine 12/02/20 Jaimie Vernon, RN Specialty Pick Up Truck Driver Cardiology 10/28/21 Marquise Hanley MD [address] [place] [address] Endocrinology, Diabetes, and Metabolism 03/05/22 Vlad Ramey MD [address] [place] [address] Cardiovascular Disease 05/07/22 Joesph Crowe MD [address] [place] [address] Surgery 05/07/22 Michelle Padilla RN Specialty Pick Up Truck Driver Cardiology 07/03/22 Marquise Hanley MD [address] [place] [address] Assigned Endocrinology Provider 08/15/22 Wagner Oliver MD [address] [place] [address] Critical Care 12/15/22 Joesph Crowe MD [address] [place] [address] Surgery 03/17/23 Adonay Haq MD [address] [place] [address] [phone] Internal Medicine 06/14/23 Ruth Riddle, DPM, Podiatry/Foot and Ankle Surgery [address] [address] Assigned Musculoskeletal Provider 10/22/23 Jignesh Mathias MD [address] [place] [address] 176465 Gastroenterology 09/25/24 Omar Carmona MD [address] [place] [address] [phone] Assigned PCP 12/29/24 Jason Alvares MD [address] [place] [address] 969405 Assigned Neuroscience Provider 12/29/24 Jignesh Mathias MD [address] [place] [address] Assigned Surgical Provider 12/29/24 Ayad Lopez, PhD LP [address] [place] [address] Assigned Behavioral Health Provider 02/28/25 documented as of this encounter
[2025-03-24] VITALS (14 sets, daily range): BP systolic 119–136; BP diastolic 77–85; PULSE 74–106; RESP 14–24; TEMP 37.1; O2SAT 89–97; BMI 17.9
--- OUTSIDE RECORDS SUMMARY | 2025-03-24 20:21 | XMS_ITS | Encounter Summary ---
Author Organization [place] Address [address] [place] [address] Care Team Providers Care Electronic Repair Troubleshooter Name Role Phone Rio Jaquez MD Primary Care Provider + [phone] Barry Kilpatrick MD Unavailable Michelle Henderson RN Unavailable [phone] Rio Jaquez MD Unavailable [phone] Jemima Jaramillo MD Unavailable Unavai Kelley Bautista RN Unavailable +[phone] Sydnee Saleem MD Unavailable +[phone] Karlene Moya MD Unavailable [phone] Wilbert Quintero OD Unavailable +[phone] Rod GauthierM Unavailable +[phone] Nallely Hogue RN Unavailable Unavailable Larisa Vargas RN Unavailable Unavailable Rio Jaquez MD Unavailable +[phone] Ruth Yarbrough MD Unavailable +[phone] Francisco Lott MD Unavailable +[phone] Frida Grace MD Unavailable +[phone] Sydnee Saleem MD Unavailable +[phone] Greg Ortega MD Unavailable Frida Grace MD Unavailable [phone] Jan Mahmood MD Unavailable Brandt Quintana MD Unavailable Jan Mahmood MD Unavailable Rio Jaquez MD Unavailable +[phone] Dom Eason MD Unavailable Jayla Plaza RN Unavailable [phone] Jayla Plaza RN Unavailable +[phone] Sydnee Saleem MD Unavailable +[phone] Phan Coello MD Unavailable Unavailable Cristian Barragan MD Unavailable [phone] Dom Eason MD Unavailable Jaimie Vernon RN Unavailable Unavailable Ruth Riddle DPM, Podiatry /Foot and Ankle Surgery Unavailable Luis Arrington MD Unavailable [phone] Jason Alvares MD Unavailable Marquise Hanley MD Unavailable [phone] Vlad Ramey MD Unavailable +[phone] Joesph Crowe MD Unavailable Luis Arrington MD Unavailable Michelle Padilla RN Unavailable Unavaila Vlad Rodriguez MD Unavailable Marquise Hanley MD Unavailable Dom Eason MD Unavailable Wagner Oliver MD Unavailable aLura Epperson NP Unavailable +[phone] Thom Taveras MD Unavailable [phone] Joesph Crowe MD Unavailable [phone] Joesph Crowe MD Unavailable [phone] Adonay Haq MD Unavailable [phone] [facility] Unavailable +[phone] Jason Alvares MD Unavailable Ruth Riddle DPM, Podiatry /Foot and Ankle Surgery Unavailable Omar Carmona MD Primary Care Provider [phone] Jignesh Mathias MD Unavailable Adonay Haq MD Unavailable [phone] Omar bragg MD Unavailable [phone] Jason Alvares MD Unavailable Jignesh Mathias MD Unavailable Ayad Lopez PhD LP Unavailable [phone] Gavi Nieto-Keisha Unavailable +[phone] Encounter Details Date Type Department Care Team (Late st Contact Info) Description 02/29/2020 [facility] [address] [address] Francisco Lott MD [address] [place] [address] Social History Tobacco Use Types Packs/Day Years Used Date Smoking Tobacco: Every Day Cigarettes 1 42.6 Started: 08/09/1982 Smokeless Tobacco: Never Alcohol Use Standard Drinks/Week Comments Yes 0 (1 standard drink = 0.6 oz pur e alcohol) occ PHQ-2 Answer Date Recorded PHQ-2 Score 2 02/22/2020 Comments No Sex and Gender Information Value Date Recorded Sex Assigned at Female 09/12/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 No / Unsure 02/29/2020 1:11 PM CDT documented as of this encounter Plan of Treatment Upcoming Encounters Date Type Department Care Team (Late st Contact Info) Description 03/26/2025 11:00 AM CDT Therapy Visit [facility] [address] [place] [phone] Jason Alvares MD [address] [place] [address] [phone] Chaya Castillo [facility] [address] [place] [address] 03/29/2025 10:30 AM CDT Therapy Visit [facility] [address] [facility] [address] [place] [phone] [place] [address]HAEL [address] [place] [address] 04/02/2025 11:00 AM CDT Therapy Visit [facility] [address] [place] [phone] Jason Alvares MD [address] [place] [address] [phone] Chaya Castillo OTR [facility] [place] [address] [place] [address] 04/11/2025 12:30 PM CDT Office Visit [facility] [address] 4th [place] [phone] Omar Carmona MD [address] [place] [address] 04/12/2025 2:15 PM CDT Therapy Visit [facility] [address] [facility] [place] [phone] Jason Alvares MD [address] [place] [address] Chaya Castillo, OTR [facility] [address] [place] [address] 04/16/2025 11:00 AM CDT Therapy Visit [facility] [address] [facility] [place] [phone] Jason Alvares MD [address] [place] [address] Chaya Castillo, OTR [facility] [place] [address] [facility] [place] [address] 04/23/2025 11:00 AM CDT Therapy Visit [facility] 150 [facility] [place] [phone] Jason Alvares MD [address] [place] [address] Chaya Castillo OTR [facility] [place] [address] [facility] [place] [address] 04/30/2025 11:00 AM CDT Therapy Visit [facility] Rehabilitation Services [facility] [address] [place] [phone] Jason Alvares MD [address] [place] [address] 295 [place] [address] Chaya Castillo, OTR [facility] 150 [place] [address] 05/15/2025 12:30 PM CDT Office Visit [address] [phone] Marquise Hanley MD [address] [place] [address] 06/08/2025 9:15 AM CDT Office Visit [facility] Hepatology Clinic [address] [phone] Jignesh Mathias MD [address] [place] [address] [phone] 11/05/2025 1:45 PM CDT Office Visit [facility] Dermatology Clinic [address] 3rd [place] [address] Gavi Nieto PA-C Dermatology [address] [place] [address] documented as of this encounter Goals Goal Patient Goal Type Associated Problems Recent Progress Patient-Stated? Author Quit smoking / using tobacco Lifestyle Rio Will MD Note: 06/25/14 planned quit date documented as of this encounter Visit Diagnoses Not on filedocumented in this encounter Additional Health Concerns Infection Onset Date Last Indicated Resolved Time MRSA Comment:Added from external infection. 10/23/2020 10/21/2020 Rule Out COVID-19 02/09/2024 02/09/2024 02/09/2024 1:52 AM CDT Assessment Noted Time PHQ-9 Depression Total Score: 11 020 9:33 AM CDT documented as of this encounter Care Teams Electronic Repair Troubleshooter Relationship Specialty Start Date End Date Rio Jaquez MD [address] [place] [address] 4 [place] [address] PCP - General Family Practice 12/02/10 07/13/24 Omar Carmona MD [address] [place] [address] [phone] PCP - General Family Medicine 07/14/24 Barry Kilpatrick MD [address] [place] [id number] [place], [place] [address] Neurology 07/19/14 Michelle Henderson I, RN Nurse Coordinator Neurology 07/19/14 Rio Jaquez MD [address] [place] [address] 4 [place], [place] 265785 Family Practice 10/15/14 Jemima Jaramillo MD weld inspector 11/20/14 Kelley Chin, TANIA [address] [phone] Nurse Coordinator Cardiology 11/04/15 Sydnee Saleem MD [address] [place] [address] [address] [place], [place] 136185 Cardiology 11/04/15 Karlene Moya MD [address] [place] [address] Ophthalmology 06/24/17 Wilbert Quintero OD [address] [place] [address] Optometry 06/24/17 Rod Gauthier DPM [address] [place] [address] Implement Mechanic Primary Podiatric Medicine 06/21/18 Nallely Hogue, RN Registered Nurse 02/20/19 11/23/22 Larisa Vargas, TANIA Specialty Cook Cold Meat Cardiology 04/18/19 03/06/22 Rio Jaquez MD [address] [place] [address] [phone] Assigned PCP 12/28/19 11/16/20 Ruth Yarbrough MD [address] [place] [address] [phone] Assigned Endocrinology Provider 05/31/20 09/28/20 Francisco Lott MD [address] [place] [address] 113255 Assigned Rheumatology Provider 05/31/20 12/13/[address] [facility] [address] [place] [address] Assigned Pediatric Specialist Provider 05/31/20 09/08/20 Sydnee Saleem MD [address] [facility] [address] [place] [address] Assigned Heart and Vascular Provider 05/31/20 10/22/20 Greg Ortega MD [address] [place] [address] Assigned Surgical Provider 06/23/20 12/06/21 Frida Grace MD [address] [place] [address] [address] [place] [address] Assigned Surgical Provider 05/31/20 06/22/20 Jan Mahmood MD [address] [place] [address] Gastroenterology 11/05/20 Brandt Quintana MD [address] [place] [address] Resident 11/05/20 Jan Mahmood MD [address] [place] [address] Assigned Gastroenterology Provider 12/01/20 Rio Jaquez MD [address] [place] [address] 232345 Assigned PCP 11/17/20 09/30/24 Dom Eason MD [address] [place] [address] [phone] Internal Medicine 12/02/20 Jayla Plaza, RN Specialty Cook [employer] Meat Hepatology 01/09/21 02/13/24 Jayla Plaza, RN Specialty Cook Cold Meat Hepatology 01/10/21 01/10/21 Sydnee Saleem MD [address] [address] Assigned Heart and Vascular Provider 02/02/21 07/24/22 Phan Coello MD Assigned Neuroscience Provider 02/21/21 11/22/21 Cristian Barragan MD [address] [place], [place] [phone] Assigned Infectious Disease Provider 02/21/21 03/06/22 Dom Eason MD [address] [place] [address] [address] [place], [place] 613584 Assigned Nephrology Provider 04/20/21 01/02/22 Jaimie Vernon, TANIA Specialty Cook Cold Meat Cardiology 10/28/21 Ruth Riddle, DPM, Podiatry/Foot and Ankle Surgery [address] [facility] [address] [place], [place] 767997 Assigned Musculoskeletal Provider 11/30/21 09/30/23 Luis Arrington MD [address] [place] [address] 549855 Assigned Neuroscience Provider 11/23/21 01/02/22 Jason Alvares MD [address] [place] [address] [address] [place], [place] 112145 Assigned Neuroscience Provider 01/03/22 05/15/22 Marquise Hanley MD [address] [place] [address] Endocrinology, Diabetes, and Metabolism 03/05/22 Vlad Ramey MD [address] [place] [address] Cardiovascular Disease 05/07/22 Joesph Crowe MD [address] [place] [address] Surgery 05/07/22 Luis Arrington MD [address] [place] [address] Assigned Neuroscience Provider 05/16/22 05/14/23 Michelle Padilla RN Specialty Cook Cold Meat Cardiology 07/03/22 Vlad Ramey MD [address] [place] [address] Assigned Heart and Vascular Provider 07/25/22 05/28/23 Marquise Hanley MD [address] [place] [address] Assigned Endocrinology Provider 08/15/22 Dom Eason MD [address] [place] [address] Assigned Nephrology Provider 11/28/22 02/19/23 Wagner Oliver MD [address] [place] [address] Critical Care 12/15/22 Laura Epperson, FAN MAIL CLERK [address] [facility] [address] [place] [address] Assigned Nephrology Provider 02/20/23 08/30/24 Thom Taveras MD [address] [place] [address] Assigned Cancer Care Provider 02/06/23 08/20/23 Joesph Crowe MD 9 [place] [address] Surgery 03/17/23 Joesph Crowe MD [address] [place] [address] Assigned Surgical Provider 04/03/23 09/30/24 Adonay Haq MD [address] [place] [address] Internal Medicine 06/14/23OctoberDenilson MD [address] [place] [address] Assigned Heart and Vascular Provider 05/29/23 11/28/24 Jason Alvares MD [address] [facility] 295 [place] [address] Assigned Neuroscience Provider 05/15/23 11/28/24 Ruth Riddle DPM, Podiatry/Foot and Ankle Surgery [address] [place] [address] Assigned Musculoskeletal Provider 10/22/23 Jignesh Mathias MD [address] [place] [address] [phone] Gastroenterology 09/25/24 Adonay Haq MD [address] [place] [address] 552645 Assigned PCP 10/01/24 12/28/24 Omar Carmona MD [address] [place] [address] [phone] Assigned PCP 12/29/24 Jason Alvares MD [address] [place] [address] [phone] Assigned Neuroscience Provider 12/29/24 Jignesh Mathias MD [address] [place] [address] [phone] Assigned Surgical Provider 12/29/24 Ayad Lopez, PhD LP [address] [place] [address] [phone] Assigned Behavioral Health Provider 02/28/25 Gavi Nieto PA-C [address] [place] [address] 223725 Physician Porcelain Slusher Dermatology 03/19/25 documented as of this encounter
--- OUTSIDE RECORDS SUMMARY | 2025-03-24 20:21 | XMS_ITS | Encounter Summary ---
Author Organization [facility] Address [address] [place] [address] Care Team Providers Care Metalsmith Helper Name Role Phone Rio Jaquez MD Primary Care Provider + [phone] Barry Kilpatrick MD Unavailable Michelle Henderson RN Unavailable [phone] Rio Jaquez MD Unavailable +[phone] Jemima Jaramillo MD Unavailable Unavai Kelley Bautista RN Unavailable +[phone] Sydnee Saleem MD Unavailable +[phone] Karlene Moya MD Unavailable [phone] Wilbert Quintero OD Unavailable +[phone] Rod GauthierM Unavailable +[phone] Nallely Hogue RN Unavailable Unavailable Larisa Vargas RN Unavailable Unavailable Rio Jaquez MD Unavailable +[phone] Ruth Yarbrough MD Unavailable +[phone] Francisco Lott MD Unavailable +[phone] Frida Grace MD Unavailable +[phone] Sydnee Saleem MD Unavailable +[phone] Greg Ortega MD Unavailable Frida Grace MD Unavailable +[phone] Jan Mahmood MD Unavailable Brandt Quintana MD Unavailable Jan Mahmood MD Unavailable Rio Jauqez MD Unavailable +[phone] Dom Eason MD [...] Eason MD Unavailable Wagner Oliver MD Unavailable Eloina Eppersonorachloe Hopper NP Unavailable +[phone] Thom Taveras MD Unavailable +[phone] Joesph Crowe MD Unavailable +[phone] Joesph Crowe MD Unavailable +[phone] Adonay Haq MD Unavailable [phone] Denilson Srinivasan MD Unavailable +[phone] Jason Alvares MD Unavailable Ruth Riddle DPM, Podiatry /Foot and Ankle Surgery Unavailable Omar Carmona MD Primary Care Provider [phone] Jignesh Mathias MD Unavailable Adonay Haq MD Unavailable [phone] Omar Carmona MD Unavailable [phone] Jason Alvares MD Unavailable Jignesh Mathias MD Unavailable Ayad Lopez PhD LP Unavailable +[phone] Gavi Nieto-Keisha Unavailable +[phone] Encounter Details Date Type Department Care Team (Late st Contact Info) Description 12/08/2019 MyC Medical Advice [facility] Dermatology [address] [place] [address] Ashlee Oneil LPN Social History Tobacco Use Types Packs/Day Years Used Date Smoking Tobacco: Every Day Cigarettes 1 42.6 Started: 08/09/1982 Smokeless Tobacco: Never Alcohol Use Standard Drinks/Week Comments Yes 0 (1 standard drink = 0.6 oz pur e alcohol) occ Comments No Sex and Gender Information Value Date Recorded Sex Assigned at Female 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 No / Unsure 12/08/2019 9:53 AM CDT documented as of this encounter Plan of Treatment Upcoming Encounters Date Type Department Care Team (Late st Contact Info) Description 03/26/2025 11:00 AM CDT Therapy Visit [facility] [address] [place] [phone] Jason Alvares MD [address] [place] [address] 014825 Chaya Castillo OTR [address] 489347 03/29/2025 10:30 AM CDT Therapy Visit [facility] [address] [place] [phone] [place] [address] MICHAEL 300 [place], [place] 246817 04/02/2025 11:00 AM CDT Therapy Visit [facility] [address] [place] [phone] Jason Alvares MD [address] [place] [address] 263905 Chaya Castillo OTR [address] [address] 04/11/2025 12:30 PM CDT Office Visit [facility] [address] 4th [place] [phone] Omar Carmona MD 909 [place] [address] 04/12/2025 2:15 PM CDT Therapy Visit [facility] [phone] Jason Alvares MD [address] [place] [address] Chaya Castillo OTR [facility] 150 [place] [address] 04/16/2025 11:00 AM CDT [facility] [address] [place] [phone] Jason Alvares MD [address] [place] [address] Chaya Castillo OTR [facility] 150 [place] [address] 04/23/2025 11:00 AM CDT Therapy Visit [facility] [address] [place] [phone] Jason Alvares MD [address] [place] [address] Chaya Castillo OTR [facility] 150 [place] [address] 04/30/2025 11:00 AM CDT Therapy Visit [facility] [address] [place] [phone] Jason Alvares MD 420 [facility] 295 [place] [address] CastilloChaya, [facility] 150 [facility] [place] [address] 05/15/2025 12:30 PM CDT Office Visit [address] [phone] Marquise Hanley MD [address] [place] [address] 06/08/2025 9:15 AM CDT Office Visit [facility] Hepatology [address] [phone] Jignesh Mathias MD [address] [place] [address] 340645 11/05/2025 1:45 PM CDT Office Visit [facility] Dermatology [address] 3rd [place] [address] Gavi Nieto, PANavinC Dermatology [address] [place] [address] documented as of this encounter Goals Goal [...] Assessment Noted Time PHQ-9 Depression Total Score: 10 019 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 documented as of this encounter Care Teams Metalsmith Helper Relationship Specialty Start Date End Date Rio Jaquez MD [address] [place] [address] 34540 PCP - General Family Practice 12/02/10 07/13/24 Omar Carmona MD [address] [place] [address] [phone] PCP - General Family Medicine 07/14/24 Barry Kilpatrick MD [address] [place] [address] [id number] [place], [place] 399065 Neurology 07/19/14 Michelle Henderson RN Nurse Coordinator Neurology 07/19/14 Rio Jaquez MD [address] [place] [address] 473725 Family Practice 10/15/14 Jemima Jaramillo MD net c developer 11/20/14 Kelley Chin, TANIA [address] 515675 Nurse Coordinator Cardiology 11/04/15 Sydnee Saleem MD 420 [facility] 508 [place], [place] 674855 Cardiology 11/04/15 Karlene Moya MD [address] [place] [address] 874255 Ophthalmology 06/24/17 Wilbert Quintero, OD [address] [place] [address] 48793 Optometry 06/24/17 Rod Gauthier DPM [address] [place] [address] 69103 Undercover Agent Primary Podiatric Medicine 06/21/18 Nallely Hogue, RN Registered Nurse 02/20/19 11/23/22 Larisa Vargas, TANIA Specialty Frame Aligner Cardiology 04/18/19 03/06/22 Rio Jaquez MD [address] [place] [address] 48284 Assigned PCP 12/28/19 11/16/20 Ruth Yarbrough MD [address] [place] [address] 38923 Assigned Endocrinology Provider 05/31/20 09/28/20 Francisco Lott MD [address] [place] [address] 13510 Assigned Rheumatology Provider 05/31/20 12/13/21 Frida Grace MD [address] [place] [address] [address] [place] [address] Assigned Pediatric Specialist Provider 05/31/20 09/08/20 Sydnee Saleem MD [address] [address] Assigned Heart and Vascular Provider 05/31/20 10/22/20 Greg Ortega MD [address] [place] [address] 29074 Assigned Surgical Provider 06/23/20 12/06/21 Frida Grace MD [address] [facility] [address] [place] [address] Assigned Surgical Provider 05/31/20 06/22/20 Jan Mahmood MD [address] [place] [address]36 Gastroenterology 11/05/20 Brandt Quintana MD [address] [place] [address] Resident 11/05/20 Jan Mahmood MD [address] [place] [address] 52216 Assigned Gastroenterology Provider 12/01/20 Rio Jaquez MD [address] [place] [address] 22094 Assigned PCP 11/17/20 09/30/24 Dom Eason MD [address] [place] [address] 353 [place] [address] Internal Medicine 12/02/20 Jayla Plaza, RN Specialty Frame Aligner Hepatology 01/09/21 02/13/24 Jayla Plaza, RN Specialty Frame Aligner Hepatology 01/10/21 01/10/21 Sydnee Saleem MD [address] [place] [address] Assigned Heart and Vascular Provider 02/02/21 07/24/22 Phan Coello MD Assigned Neuroscience Provider 02/21/21 11/22/21 Cristian Barragan MD 2945 [place] [address] Assigned Infectious Disease Provider 02/21/21 03/06/22 Dom Eason MD [address] [place] [address] 353 [place] [address] Assigned Nephrology Provider 04/20/21 01/02/22 Jaimie Vernon, TANIA Specialty Frame Aligner Cardiology 10/28/21 Ruth Riddle DPM, Podiatry/Foot and Ankle Surgery [address] [facility] 300 [place] [address] Assigned Musculoskeletal Provider 11/30/21 09/30/23 Luis Arrington MD [address] [place] [address] 840065 Assigned Neuroscience Provider 11/23/21 01/02/22 Jason Alvares MD [address] [place] [address] 295 [place] [address] Assigned Neuroscience Provider 01/03/22 05/15/22 Marquise Hanley MD [address] [place] [address] 95058 Endocrinology, Diabetes, and Metabolism 03/05/22 Vlad Ramey MD [address] [place] [address] 14386 Cardiovascular Disease 05/07/22 Joesph Crowe MD [address] [place] [address] 13520 Surgery 05/07/22 Luis Arrington MD [address] [place] [address] 25390 Assigned Neuroscience Provider 05/16/22 05/14/23 Michelle Padilla RN Specialty Frame Aligner Cardiology 07/03/22 Vlad Ramey MD [address] [place] [address] 67096 Assigned Heart and Vascular Provider 07/25/22 05/28/23 Marquise Hanley MD [address] [place] [address] 26196 Assigned Endocrinology Provider 08/15/22 Dom Eason MD 7 [facility] 353 [place] [address] Assigned Nephrology Provider 11/28/22 02/19/23 Wagner Oliver MD [address] [place] [address] Critical Care 12/15/22 Laura Epperson, HAND FRAME SURGICAL ELASTIC KNITTER 717 [facility] 1932 [place] [address] Assigned Nephrology Provider 02/20/23 08/30/24 Thom Taveras MD [address] [place] [address] Assigned Cancer Care Provider 02/06/23 08/20/23 Joesph Crowe MD 909 [place] [address] Surgery 03/17/23 Joesph Crowe MD [address] [place] [address] 60238 Assigned Surgical Provider 04/03/23 09/30/24 Adonay Haq MD [address] [place] [address] 06115 Internal Medicine 06/14/23OctoberDenilson MD [address] [facility] [address] [place] [address] Assigned Heart and Vascular Provider 05/29/23 11/28/24 Jason Alvares MD [address] [place] [address] [facility] 295 [place] [address] Assigned Neuroscience Provider 05/15/23 11/28/24 Ruth Riddle DPM, Podiatry/Foot and Ankle Surgery [address]RIG[address]Z 300 [place] [address] Assigned Musculoskeletal Provider 10/22/23 Jignesh Mathias MD 9 [place] [address] Gastroenterology 09/25/24 Adonay Haq MD [address] [place] [address] 461175 Assigned PCP 10/01/24 12/28/24 Omar Carmona MD [address] [place] [address] 55455 Assigned PCP 12/29/24 Jason Alvares MD [address] [place] [address] 159625 Assigned Neuroscience Provider 12/29/24 Jignesh Mathias MD [address] [place] [address] 492995 Assigned Surgical Provider 12/29/24 Ayad Lopez, PhD LP [address] [place] [address] 377035 Assigned Behavioral Health Provider 02/28/25 Gavi Nieto, PA-C [address] [place] [address] 207405 Physician Steel Melter Dermatology 03/19/25 documented as of this encounter
--- OUTSIDE RECORDS SUMMARY | 2025-03-24 20:21 | XMS_ITS | Encounter Summary ---
Author Organization [facility] Address [address] [place] [address] Care Team Providers Care Physician Practice Market Manager Name Role Phone Rio Jaquez MD Primary Care Provider + [phone] Barry Kilpatrick MD Unavailable Michelle Henderson RN Unavailable Rio Jaquez MD Unavailable +[phone] Jemima Jaramillo MD Unavailable Unavai Kelley Bautista RN Unavailable [phone] Sydnee Saleem MD Unavailable [phone] Karlene Moya MD Unavailable +[phone] Wilbert Quintero OD Unavailable +[phone] Rod GauthierM Unavailable +[phone] Nallely Hogue RN Unavailable Unavailable Larisa Vargas RN Unavailable Unavailable Rio Jaquez MD Unavailable +[phone] Ruth Yarbrough MD Unavailable +[phone] Francisco Lott MD Unavailable +[phone] Frida Grace MD Unavailable +[phone] Sydnee Saleem MD Unavailable +[phone] [...] Eason MD Unavailable Wagner Oliver MD Unavailable Zeenat Laura Ward LAWSON Unavailable +[phone] Thom Taveras MD Unavailable +[phone] Joesph Crowe MD Unavailable [phone] Joesph Crowe MD Unavailable +[phone] Adonay Haq MD Unavailable [phone] Denilson Srinivasan MD Unavailable +[phone] Jason Alvares MD Unavailable Ruth Riddle DPM, Podiatry /Foot and Ankle Surgery Unavailable Omar Carmona MD Primary Care Provider [phone] Jignesh Mathias MD Unavailable Adonay Haq MD Unavailable [phone] Omar Carmona MD Unavailable [phone] Jason Alvares MD Unavailable Jignesh Mathias MD Unavailable Ayad Lopez PhD LP Unavailable +[phone] Gavi Nieto-Keisha Unavailable +[phone] Encounter Details Date Type Department Care Team (Late st Contact Info) Description 12/05/2019 [facility] Medical Advice [facility] Dermatology [address] [place] [phone] [facility] Social History Tobacco Use Types Packs/Day Years Used Date Smoking Tobacco: Every Day Cigarettes 1 42.6 Started: 08/09/1982 Smokeless Tobacco: Never Alcohol Use Standard Drinks/Week Comments Yes 0 (1 standard drink = 0.6 oz pur e alcohol) occ Comments No Sex and Gender Information Value Date Recorded Sex Assigned at Female 09/12/2020 12:05 PM CLINICAL DIETITIAN Legal Sex Female 3:26 AM CLINICAL DIETITIAN Gender Identity Female 09/12/2020 12:05 PM CLINICAL DIETITIAN Sexual Orientation Straight 12/19/2021 10 :44 AM [...] Description 03/26/2025 11:00 AM CDT Therapy Visit [facility] 150 [place] [phone] Jason Alvares MD [address] [place] [address] 411965 Chaya Castillo OTR [address] 779207 03/29/2025 10:30 AM CDT Therapy Visit [facility] [address] [place] [phone] [place] [address] MICHAEL 300 [place], [place] [phone] 04/02/2025 11:00 AM CDT Therapy Visit [facility] 150 [place] [phone] Jason lAvares MD [address] [place] [address] [phone] Chaya Castillo, OTR [facility] [address] [place] [address] 211727 04/11/2025 12:30 PM CDT Office [facility] [address] 4th [place] [phone] Omar Carmona MD [address] [place] [address] 04/12/2025 2:15 PM CDT Therapy Visit [facility] 150 [facility] [place] [phone] Jason Alvares MD [address] [place] [address] Chaya Castillo OTR [facility] 150 [place] [address] 04/16/2025 11:00 AM CDT [facility] 150 [place] [phone] Jason Alvares MD [address] [place] [address] Chaya Castillo OTR [facility] 150 [place] [address] 04/23/2025 11:00 AM CDT Therapy Visit [facility] 150 [facility] [place] [address] Jason Alvares MD [address] [place] [address] Chaya Castillo OTR [facility] 150 [place] [address] 04/30/2025 11:00 AM CDT Therapy Visit [facility] 150 [place] [phone] Jason Alvares MD 420 [facility] 295 [place] [address] Chaya Castillo, [facility] 150 [place] [address] 05/15/2025 12:30 PM CDT Office Visit [address] [phone] Marquise Hanley MD [address] [place] [address] 06/08/2025 9:15 AM CDT Office [facility] Hepatology [address] [phone] Jignesh Mathias MD [address] [place] [address] 648715 11/05/2025 1:45 PM CDT Office [facility] [address] 3rd [place] [address] Gavi Nieto, PANavinC Dermatology [address] [place] [address] 28787 documented as of this encounter Goals Goal [...] Noted Time PHQ-9 Depression Total Score: 10 03/05/2 019 7:06 AM CLINICAL DIETITIAN documented as of this encounter Care Teams Physician Practice Market Manager Relationship Specialty Start Date End Date Rio Jaquez MD [address] [place] [address] [phone] PCP - General Family Practice 12/02/10 07/13/24 Omar Carmona MD [address] [place] [address] 417865 PCP - General Family Medicine 07/14/24 Barry Kilpatrick MD [address] [place] [address] [id number] [place] 185675 Neurology 07/19/14 Michelle Henderson RN Nurse Coordinator Neurology 07/19/14 Rio Jaquez MD [address] [place] [address] 498855 Family Practice 10/15/14 Jemima Jaramillo MD project systems engineer 11/20/14 Kelley Chin, TANIA [address] 305325 Nurse Coordinator Cardiology 11/04/15 Sydnee Saleem MD 420 [facility] 508 [place], [place] 445635 Cardiology 11/04/15 Karlene Moya MD [address] [place] [address] 969685 Ophthalmology 06/24/17 Wilbert Quintero, OD [address] [place] [address] 52830 Optometry 06/24/17 Rod Gauthier DPM [address] [place] [address] 36961 Operation Shift Supervisor Primary Podiatric Medicine 06/21/18 Nallely Hogue, RN Registered Nurse 02/20/19 11/23/22 Larisa Vargas, TANIA Specialty Black Leather Trimmer Cardiology 04/18/19 03/06/22 Rio Jaquez MD [address] [place] [address] 16483 Assigned PCP 12/28/19 11/16/20 Ruth Yarbrough MD [address] [place] [address] 81233 Assigned Endocrinology Provider 05/31/20 09/28/20 Francisco Lott MD [address] [place] [address] 60788 Assigned Rheumatology Provider 05/31/20 12/13/21 Frida Grace MD [address] [place] [address] [address] [place] [address] Assigned Pediatric Specialist Provider 05/31/20 09/08/20 Sydnee Saleem MD [address] [address] Assigned Heart and Vascular Provider 05/31/20 10/22/20 Greg Ortega MD [address] [place] [address] 41506 Assigned Surgical Provider 06/23/20 12/06/21 Frida Grace MD [address] [facility] [place] [address] [place] [address] Assigned Surgical Provider 05/31/20 06/22/20 Jan Mahmood MD [address] [place] [address] 2[address] [place] [address] Gastroenterology 11/05/20 Brandt Quintana MD [address] [place] [address] 8[address]17 Resident 11/05/20 Jan Mahmood MD [address] [place] [address] 2A [place] [address] Assigned Gastroenterology Provider 12/01/20 Rio Jaquez MD 9 [facility] 4 [place] [address] Assigned PCP 11/17/20 09/30/24 Dom Eason MD 7 [facility] 353 [place] [address] Internal Medicine 12/02/20 Jayla Plaza, RN Specialty Black Leather Trimmer Hepatology 01/09/21 02/13/24 Jayla Plaza, RN Specialty Black Leather Trimmer Hepatology 01/10/21 01/10/21 Sydnee Saleem MD [address] [address] Assigned Heart and Vascular Provider 02/02/21 07/24/22 Phan Coello MD Assigned Neuroscience Provider 02/21/21 11/22/21 Cristian Barragan MD 2945 [place] [address] Assigned Infectious Disease Provider 02/21/21 03/06/22 Dom Eason MD [address] [place] [address] Assigned Nephrology Provider 04/20/21 01/02/22 Jaimie Vernon, TANIA Specialty Black Leather Trimmer Cardiology 10/28/21 Ruth Riddle DPM, Podiatry/Foot and Ankle Surgery [address] [address] [facility] 300 [place] [address] Assigned Musculoskeletal Provider 11/30/21 09/30/23 Luis Arrington MD [address] [place] [address] 57245 Assigned Neuroscience Provider 11/23/21 01/02/22 Jason Alvares MD [address] [place] [address] 295 [place] [address] Assigned Neuroscience Provider 01/03/22 05/15/22 Marquise Hanley MD [address] [place] [address] 73921 Endocrinology, Diabetes, and Metabolism 03/05/22 Vlad Ramey MD [address] [place] [address] 82268 Cardiovascular Disease 05/07/22 Joesph Crowe MD [address] [place] [address] 60125 Surgery 05/07/22 Luis Arrington MD [address] [place] [address] 18012 Assigned Neuroscience Provider 05/16/22 05/14/23 Michelle Padilla RN Specialty Black Leather Trimmer Cardiology 07/03/22 Vlad Ramey MD [address] [place] [address] 83050 Assigned Heart and Vascular Provider 07/25/22 05/28/23 Marquise Hanley MD [address] [place] [address] 44415 Assigned Endocrinology Provider 08/15/22 Dom Eason MD 7 [facility] 353 [place] [address] Assigned Nephrology Provider 11/28/22 02/19/23 Wagner Oliver MD [address] [place] [address] Critical Care 12/15/22 Laura Epperson, DOUGHNUT FRYER 717 [facility] 1932 [place] [address] Assigned Nephrology Provider 02/20/23 08/30/24 Thom Taveras MD [address] [facility] [address] [place] [address] Assigned Cancer Care Provider 02/06/23 08/20/23 Joesph Crowe MD 909 [place] [address] Surgery 03/17/23 Joesph Crowe MD [address] [place] [address] 30839 Assigned Surgical Provider 04/03/23 09/30/24 Adonay Haq MD [address] [place] [address] 44817 Internal Medicine 06/14/23OctoberDenilson MD [address] [facility] [address] [place] [address] Assigned Heart and Vascular Provider 05/29/23 11/28/24 Jason Alvares MD 420 [facility] 295 [place] [address] Assigned Neuroscience Provider 05/15/23 11/28/24 Ruth Riddle DPM, Podiatry/Foot and Ankle Surgery [address] 300 [place], [place] 611247 Assigned Musculoskeletal Provider 10/22/23 Jignesh Mathias MD 909 [place] [address] Gastroenterology 09/25/24 Adonay Haq MD [address] [place] [address] [phone] Assigned PCP 10/01/24 12/28/24 Omar Carmona MD [address] [place] [address] 676135 Assigned PCP 12/29/24 Jason Alvares MD [address] [place] [address] 220285 Assigned Neuroscience Provider 12/29/24 Jignesh Mathias MD [address] [place] [address] 701055 Assigned Surgical Provider 12/29/24 Ayad Lopez, PhD LP [address] [place] [address] 608785 Assigned Behavioral Health Provider 02/28/25 Gavi Nieto, PA-C [address] [place] [address] [phone] Physician Project Engineer Dermatology 03/19/25 documented as of this encounter
--- OUTSIDE RECORDS SUMMARY | 2025-03-24 20:21 | XMS_ITS | Encounter Summary ---
Author Organization [facility] Address [address] [place] [address] Care Team Providers Care Molder Pipe Covering Name Role Phone Barry Kilpatrick MD Unavailable Michelle [place] RN Unavailable [phone] Rio Jaquez MD Unavailable +[phone] Jemima Jaramillo MD Unavailable Unavai Kelley Bautista RN Unavailable [phone] Sydnee Saleem MD Unavailable [phone] Karlene Moya MD Unavailable [phone] Wilbert Quintero OD Unavailable +[phone] Rod Gauthier DPM Unavailable Jan Mahmood MD Unavailable [phone] Brandt Quintana MD Unavailable [phone] Jan Mahmood MD Unavailable [phone] Dom Eason MD Unavailable +[phone] Jaimie Vernon RN Unavailable Unavailable Marquise Hanley MD Unavailable +[phone] Vlad Ramey MD Unavailable [phone] Joesph Crowe MD Unavailable [phone] Michelle Padilla RN Unavailable Unavaila ble Marquise Hanley MD Unavailable Wagner Oliver MD Unavailable [phone] Joesph Crowe MD Unavailable [phone] Adonay Haq MD Unavailable Ruth RiddleM, Podiatry /Foot and Ankle Surgery Unavailable Omar Carmoan MD Primary Care Provider Jignesh Mathias MD Unavailable Omar Carmona MD Unavailable Jason Alvares MD Unavailable Jignesh Mathias MD Unavailable Encounter Details Date Type Department Care Team (Late st Contact Info) Description 01/19/2025 MyC Medical Advice [facility] Ep[facility] [address], [address] [place] [address] Jason Alvares MD [address] [facility] 295 [place] [address] Social History Tobacco Use Types Packs/Day Years Used Date Smoking Tobacco: Every Day Cigarettes 0.5 42.6 Started: 08/09/1982 Other Smokeless Tobacco: Never Comments:2 PPD Alcohol Use Standard Drinks/Week Comments Not [...] than three times a week 08/27/2021 Attends [employer] Not on file 08/27 Do you belong to any clubs o r organizations such as buddhist groups, unions, fraternal or athletic groups, or [...] Answer Date Recorded PHQ-2 Score 3 12/04/2024 [facility] of Occupat ional Health - Occupational Stress [...] Answer Date Recorded Do you have housing? (Housin g is defined as stable permanent housing and does not include staying outside in a car, in a tent, in an abandoned building, in an overnight custodial, or couch-surfing.) Yes 07/12/2023 Are you worried [...] Sex Assigned at Female 09/12/2020 12:05 PM DIRECTOR OF GUIDANCE Legal Sex Female 3:26 AM DIRECTOR OF GUIDANCE Gender Identity Female 09/12/2020 12:05 PM DIRECTOR OF GUIDANCE Sexual Orientation Straight 12/19/2021 10 :44 AM CDT Occupation Industry Job Start Date Job End Date on disability for FMS Not on file Not on file Not on file disabled Not on file Not on file Not on file documented as of this encounter Miscellaneous Notes * Telephone Encounter - Jason Alvares MD - 02/10/2025 5:36 PM CDT Called patient at [phone]. Left a message. documented in this encounter Plan of Treatment Upcoming Encounters Date Type Department Care Team (Late st Contact Info) Description 03/26/2025 11:00 AM CDT Therapy Visit [address] [phone] Jason Alvares MD [address] [facility] 295 [place], [place] 864815 Chaya Castillo, LETA [facility] 150 [place] [address] 03/29/2025 10:30 AM CDT Therapy Visit [facility] [address] [facility] 300 [place] [phone] [place] [address] MICHAEL 300 [place] [address] 04/02/2025 11:00 AM CDT [facility] 150 [place] [phone] Jason Alvares MD [address] [place] [address] 732025 Chaya Castillo, OTR FV [address] [address] 04/11/2025 12:30 PM CDT Office Visit [facility] [address] 4th [place] [phone] Omar Carmona MD [address] [place] [address] 558685 04/12/2025 2:15 PM CDT [facility] 150 [place] [phone] Jason Alvares MD [address] [place] [address] 389165 Chaya Castillo, OTR [facility] [address] [place] [address] 04/16/2025 11:00 AM CDT Therapy Visit [facility] 150 [place] [phone] Jason Alvares MD [address] [place] [address] 116975 Chaya Castillo, OTR FV [facility] [address] [place] [address] 04/23/2025 11:00 AM CDT Therapy Visit [facility] [address] [place] [phone] Jason Alvares MD [address] [place] [address] Chaya Castillo OTR FV [facility] 150 [place] [address] 04/30/2025 11:00 AM CDT [facility] 150 [place] [phone] Jason Alvares MD [address] [place] [address] Chaya Castillo [facility] 150 [place] [address] 05/15/2025 12:30 PM CDT Office Visit [address] [phone] Marquise Hanley MD [address] [place] [address] 06/08/2025 9:15 AM CDT Office Visit [facility] [address] [phone] Jignesh Mathias MD [address] [place] [address] 11/05/2025 1:45 PM CDT Office Visit [facility] [address] 3rd [place] [phone] Gavi Nieto PA-C Dermatology [address] [place] [address] documented as of this encounter Goals Goal [...] documented as of this encounter Care Teams Molder Pipe Covering Relationship Specialty Start Date End Date Omar Carmona MD [address] [place] [address] PCP - General Family Medicine 07/14/24 Barry Kilpatrick MD [address] [place] [address] [id number] [place] [address] Neurology 07/19/14 Michelle [place] RN Nurse Coordinator Neurology 07/19/14 Rio Jaquez MD [address] [place] [address] Family Practice 10/15/14 Jemima Jaramillo MD [address] [place] [address] punching machine operator 11/20/14 Kelley Chin RN [address] [address] Nurse Coordinator Cardiology 11/04/15 Sydnee Saleem MD [address] [facility] 508 [place], [place] 321445 Cardiology 11/04/15 Karlene Moya MD 516 [place], [place] 257495 Ophthalmology 06/24/17 Wilbert Quintero, OD 909 [place], [place] 532545 Optometry 06/24/17 Rod Gauthier DPM 909 [place], [place] 214725 Solar Project Coordination Specialist Primary Podiatric Medicine 06/21/18 aJn Mahmood MD [address] 607475 Gastroenterology 11/05/20 Brandt Quintana MD [address] [place] [address] Resident 11/05/20 Jan Mahmood MD [address] [facility] 2A [place] [address] Assigned Gastroenterology Provider 12/01/20 Dom Eason MD 717 [facility] 353 [place] [address] Internal Medicine 12/02/20 [place], Jaimie, RN Specialty Clothing Patternmaker Cardiology 10/28/21 Marquise Hanley MD [address] [place] [address] Endocrinology, Diabetes, and Metabolism 03/05/22 Vlad Ramey MD [address] [place] [address] Cardiovascular Disease 05/07/22 Joesph Crowe MD [address] [place] [address] 106[address] MD Surgery 05/07/22 Michelle Padilla RN Specialty Clothing Patternmaker Cardiology 07/03/22 Marquise Hanley MD [address] [place] [address]657 Assigned Endocrinology Provider 08/15/22 Wagner Oliver MD [address] [place] [address] Critical Care 12/15/22 Joeshp Crowe MD [address] [place] [address] 8[address]67 Surgery 03/17/23 Adonay Haq MD [address] [place] [address] Internal Medicine 06/14/23 Ruth Riddle DPM, Podiatry/Foot and Ankle Surgery [address] [place] [address] Assigned Musculoskeletal Provider 10/22/23 Jignesh Mathias MD [address] [place] [address] [phone] Gastroenterology 09/25/24 Omar Carmona MD [address] [place] [address] Assigned PCP 12/29/24 Jason Alvares MD [address] [place] [address] 295 [place] [address] Assigned Neuroscience Provider 12/29/24 Jignesh Mathias MD [address] [place] [address] 106775 Assigned Surgical Provider 12/29/24 documented as of this encounter
--- OUTSIDE RECORDS SUMMARY | 2025-03-24 20:21 | XMS_ITS | Encounter Summary ---
Author Organization [facility] Address [address] [place] [address] Care Team Providers Care Tank Charger Name Role Phone Rio Jaquez MD Primary Care Provider + [phone] Barry Kilpatrick MD Unavailable Michelle [place] RN Unavailable [phone] Rio Jaquez MD Unavailable [phone] Jemima Jaramillo MD Unavailable Unavai Kelley Bautista RN Unavailable [phone] Sydnee Saleem MD Unavailable [phone] Karlene Moya MD Unavailable [phone] Wilbert Quintero OD Unavailable [phone] Rod GauthierM Unavailable [phone] Nallely Hogue RN Unavailable Unavailable Larisa Vargas RN Unavailable Unavailable Rio Jaquez MD Unavailable +[phone] Ruth Yarbrough MD Unavailable [phone] Francisco Lott MD Unavailable [phone] Frida Grace MD Unavailable [phone] Sydnee Saleem MD Unavailable [phone] [...] MD Unavailable Zeenat Laura Ward LAWSON Unavailable [phone] Thom Taveras MD Unavailable [phone] Joesph Crowe MD Unavailable [phone] Joesph Crowe MD Unavailable [phone] Adonay Haq MD Unavailable [phone] [facility] MD Unavailable [phone] Jason Alvares MD Unavailable Ruth Riddle DPM, Podiatry /Foot and Ankle Surgery Unavailable Omar Carmona MD Primary Care Provider [phone] Jignesh Mathias MD Unavailable Adonay aHq MD Unavailable [phone] [facility] MD Unavailable [phone] Jason Alvares MD Unavailable Jignesh Mathias MD Unavailable Ayad Lopez PhD Unavailable [phone] Gavi Nieto-C Unavailable [phone] Reason for Referral * Consultation (Routine) - Closed Specialty Diagnoses / Procedures Referred By Good zhu Referred To Contact Diagnoses 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 Please be aware that coverage of these services is subject to the terms and limitations of your health insurance plan. Call member services at your health plan with any benefit or coverage questions. Please bring the following with you to your appointment: (1) Any X-Rays, CTs or MRIs which have been performed. Contact the facility where they were done to arrange for steel pickler prior to your scheduled appointment. (2) List of current medications (3) This referral request (4) Any documents/labs given to you for this referral Encounter Details Date Type Department Care Team (Late Contact Info) Description 03/03/2020 MyC Medical Advice [facility] [address] [address] Francisco Lott MD [address] [place] [address] Parotid gland enlargement (Primary Dx); IgG4 related disease (H) Social History Tobacco Use Types Packs/Day Years Used Date Smoking Tobacco: Every Day Cigarettes 1 42.6 Started: 08/09/1982 Smokeless Tobacco: Never Alcohol Use Standard Drinks/Week Comments Yes 0 (1 standard drink = 0.6 oz pur e alcohol) occ PHQ-2 Answer Date Recorded PHQ-2 Score 2 02/22/2020 Comments No Sex and Gender Information Value Date Recorded Sex Assigned at Female 09/12/2020 12:05 PM DECK HAND Legal Sex Female 3:26 AM DECK HAND Gender Identity Female 09/12/2020 12:05 PM DECK HAND Sexual Orientation Straight 12/19/2021 10 :44 AM [...] Upcoming Encounters Date Type Department Care Team ([facility] Contact Info) Description 03/26/2025 11:00 AM CDT Therapy Visit [facility] [address] [phone] Jason Alvares MD [address] [place] [address] [phone] Chaya Castillo OTR [facility] [address] [place] [address] 03/29/2025 10:30 AM CDT Therapy Visit [facility] [place] [address] [place] [phone] [place] [address] MICHAEL 300 [place], [place] [phone] 04/02/2025 11:00 AM CDT Therapy Visit [address] [phone] Jason Alvares MD [address] [place] [address] Chaya Castillo OTR [address] [address] 04/11/2025 12:30 PM CDT Office Visit [facility] [address] 4th [place] [phone] Omar Carmona MD [address] [place] [address] 923745 04/12/2025 2:15 PM CDT Therapy Visit [address] [phone] Jason Alvares MD [address] [place] [address] 799715 Castillo, Chaya A, OTR FV [facility] [address] [place] [address] 04/16/2025 11:00 AM CDT Therapy Visit [facility] 150 [facility] [place] [phone] Jason Alvares MD [address] [place] [address] Chaya Castillo, OTR FV [facility] 150 [facility] [place] [address] 04/23/2025 11:00 AM CDT Therapy [facility] [place] [phone] Jason Alvares MD [address] [place] [address] Chaya Castillo OTR FV [facility] 150 [place] [address] 04/30/2025 11:00 AM CDT Therapy [facility] 150 [facility] [place] [phone] Jason Alvares MD [address] [place] [address] Chaya Castillo OTR FV [facility] 150 [place] [address] 05/15/2025 12:30 PM CDT Office Visit [address] [address] Marquise Hanley MD [address] [place] [address] 06/08/2025 9:15 AM CDT Office Visit [facility] [address] [phone] Jignesh Mathias MD [address] [place] [address] 11/05/2025 1:45 PM CDT Office Visit [facility] [address] 3rd [place] [address] Gavi Nieto PA-C Dermatology [address] [place] [address] Scheduled Referrals Name Type Priority Associated Diagnoses Orde r Schedule OTOLARYNGOLOGY REFERRAL Referral Routine 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 10/23/2020 10/21/2020 Rule Out COVID-19 02/09/2024 02/09/2024 02/09/2024 1:52 AM CDT Assessment Noted Time PHQ-9 Depression Total Score: 11 020 9:33 AM CDT documented as of this encounter Care Teams Tank Charger Relationship Specialty Start Date End Date Rio Jaquez MD [address] [place] [address] PCP - General Family Practice 12/02/10 07/13/24 Omar Carmona MD [address] [place] [address] [place] 222375 PCP - General Family Medicine 07/14/24 Barry Kilpatrick MD [address] [place] [address] [id number] [place], [place] 222635 Neurology 07/19/14 Michelle [place] I, RN Nurse Coordinator Neurology 07/19/14 Rio Jaquez MD [address] [place] [address] [address] 4 [place], [place] 164455 Family Practice 10/15/14 Jemima Jaramillo MD consumer relations specialist 11/20/14 Kelley Chin RN [address] 68[address] Nurse Coordinator Cardiology 11/04/15 Sydnee Saleem MD [address] [place] [address] 508 [place] [address] Cardiology 11/04/15 Karlene Moya MD [address] [place] [address] 462125 Ophthalmology 06/24/17 Wilbert Quintero, OD [address] [place] [address] 544665 Optometry 06/24/17 Rod Gauthier DPM [address] [place] [address] 817005 Brick Pointer Primary Podiatric Medicine 06/21/18 Nallely Hogue, RN Registered Nurse 02/20/19 11/23/22 Larisa Vargas, TANIA Specialty Cane Burner Cardiology 04/18/19 03/06/22 Rio Jaquez MD [address] [place] [address] 4 [place] [address] Assigned PCP 12/28/19 11/16/20 Ruth Yarbrough MD [address] [place] [address] 101 [place] [address] Assigned Endocrinology Provider 05/31/20 09/28/20 Francisco Lott MD [address] [place] [address] 88 [place] [address] Assigned Rheumatology Provider 05/31/20 12/13/21 Frida Grace MD [address] [place] [address] JASON ANDERSON [address] Assigned Pediatric Specialist Provider 05/31/20 09/08/20 Sydnee Saleem MD [address] [place] [address] 2081930 Assigned Heart and Vascular Provider 05/31/20 10/22/20 Greg Ortega MD [address] [place] [address] Assigned Surgical Provider 06/23/20 12/06/21 Frida Grace MD [address] [place] [address] JASON ANDERSON [address] Assigned Surgical Provider 05/31/20 06/22/20 Jan Mahmood MD 516 [facility] 2A [place] [address] Gastroenterology 11/05/20 Brandt Quintana MD 1414 [place] [address] Resident 11/05/20 Jan Mahmood MD 516 [facility] 2A [place] [address] Assigned Gastroenterology Provider 12/01/20 Rio Jaquez MD 909 [facility] 4 [place] [address] Assigned PCP 11/17/20 09/30/24 Dom Eason MD 717 [facility] MIC[address]EL 353 [place] [address] Internal Medicine 12/02/20 Jayla Plaza, RN Specialty Cane Burner Hepatology 01/09/21 02/13/24 Jayla Plaza, RN Specialty Cane Burner Hepatology 01/10/21 01/10/21 Sydnee Saleem MD 6550 [facility] [address] [place] [address] [phone] Assigned Heart and Vascular Provider 02/02/21 07/24/22 Phan Coello MD Assigned Neuroscience Provider 02/21/21 11/22/21 Cristian Barragan MD 2945 [place] [address] Assigned Infectious Disease Provider 02/21/21 03/06/22 Dom Eason MD 717 [facility] 353 [place] [address] Assigned Nephrology Provider 04/20/21 01/02/22 Jaimie Vernon, TANIA Specialty Cane Burner Cardiology 10/28/21 Ruth Riddle DPM, Podiatry/Foot and Ankle Surgery [address] [facility] [facility] 300 [place] [address] Assigned Musculoskeletal Provider 11/30/21 09/30/23 Luis Arrington MD [address] [place] [address] 512815 Assigned Neuroscience Provider 11/23/21 01/02/22 Jason Alvares MD 420 [facility] 295 [place], [place] 012655 Assigned Neuroscience Provider 01/03/22 05/15/22 Marquise Hanley MD [address] [place] [address] Endocrinology, Diabetes, and Metabolism 03/05/22 Vlad Ramey MD [address] [place] [address] 011495 Cardiovascular Disease 05/07/22 Joesph Crowe MD [address] [place] [address] 99441 Surgery 05/07/22 Luis Arrington MD 9 [place] [address] Assigned Neuroscience Provider 05/16/22 05/14/23 Michelle Padilla, RN Specialty Cane Burner Cardiology 07/03/22 Vlad Ramey MD [address] [place] [address] 139855 Assigned Heart and Vascular Provider 07/25/22 05/28/23 Marquise Hanley MD [address] [place] [address] 810395 Assigned Endocrinology Provider 08/15/22 Dom Eason MD 717 [facility] MICHAEL 353 [place], [place] 676054 Assigned Nephrology Provider 11/28/22 02/19/23 Wagner Oliver MD [address] [place], [place] 107365 Critical Care 12/15/22 Laura Epperson, LULU 717 [facility] [address] [place] [address] Assigned Nephrology Provider 02/20/23 08/30/24 Thom Taveras MD [address], R[address] [place], [place] 947444 Assigned Cancer Care Provider 02/06/23 08/20/23 Joesph Crowe MD [address] [place] [address] 899995 Surgery 03/17/23 Joesph Crowe MD [address] [place] [address] 94446 Assigned Surgical Provider 04/03/23 09/30/24 Adoany Haq MD [address] [place] [address] 9[address]50 Internal Medicine 06/14/23October, Denilson Jackson MD 6405 [facility] CLEO Black [facility] [address] [place] [address] Assigned Heart and Vascular Provider 05/29/23 11/28/24 Jason Alvares MD [address] [place] [address] 295 [place] [address] Assigned Neuroscience Provider 05/15/23 11/28/24 Ruth Riddle DPM, Podiatry/Foot and Ankle Surgery [address] [place] [address] Assigned Musculoskeletal Provider 10/22/23 Jignesh aMthias MD [address] [place] [address] Gastroenterology 09/25/24 Adonay Haq MD [address] [place] [address] 14475 Assigned PCP 10/01/24 12/28/24 Omar Carmona MD [address] [place] [address] 98212 Assigned PCP 12/29/24 Jason Alvares MD [address] [facility] 295 [place], [place] 874945 Assigned Neuroscience Provider 12/29/24 Jignesh Mathias MD [address] [place] [address] Assigned Surgical Provider 12/29/24 Ayad Lopez, PhD LP [address] [place] [address] Assigned Behavioral Health Provider 02/28/25 Gavi Nieto PANavinC [address] [place] [address] [id number] Physician Sld Teacher Dermatology 03/19/25 documented as of this encounter
--- OUTSIDE RECORDS SUMMARY | 2025-03-24 20:21 | XMS_ITS | Encounter Summary ---
Author Organization [place] Address [address] [place] [address] 27234 Care Team Providers Care Fish Frog Or Oyster Farmer Name Role Phone Barry Kilpatrick MD Unavailable Michelle Henderson RN Unavailable [phone] Rio Jaquez MD Unavailable +[phone] Jemima Jaramillo MD Unavailable Unavai Kelley Bautista RN Unavailable [phone] Sydnee Saleem MD Unavailable [phone] Karlene Moya MD Unavailable [phone] Wilbert Quintero OD Unavailable +[phone] Rod Gauthier DPM Unavailable [phone] Jan Mahmood MD Unavailable [phone] Brandt Quintana MD Unavailable Jan Mahmood MD Unavailable [phone] Dom Eason MD Unavailable +[phone] Jaimie Vernon RN Unavailable Unavailable Marquise Hanley MD Unavailable +[phone] Vlad Ramey MD Unavailable +[phone] Joesph Crowe MD Unavailable [phone] Michelle Padilla RN Unavailable Unavaila ble Marquise Hanley MD Unavailable +[phone] Wagner Oliver MD Unavailable +[phone] Joesph Crowe MD Unavailable Adonay Haq MD Unavailable [phone] Ruth Riddle DPM, Podiatry /Foot and Ankle Surgery Unavailable Omar Carmona MD Primary Care Provider [phone] Jignesh Mathias MD Unavailable Omar Carmona MD Unavailable [phone] Jason Alvares MD Unavailable Jignesh Mathias MD Unavailable Ayad Lopez PhD LP Unavailable [phone] Gavi Nieto PA-C Unavailable [phone] Encounter Details Date Type Department Care Team (Late st Contact Info) Description 01/03/[address] [facility] [address] [address] Omar Carmona MD [address] [place] [address] Hypokalemia (Primary Dx); CKD (chronic kidney disease) stage 2, GFR 60-89 ml/min; Anemia Social History Tobacco Use Types Packs/Day Years [...] than three times a week 08/27/2021 Attends Mosque Services Not on file 08/27 Do you belong to any clubs o r organizations such as confucianism groups, unions, fraternal or athletic groups, or [...] in an abandoned building, in an overnight mcfp, or couch-surfing.) Yes 07/12/2023 Are you worried [...] motionally safe where you currently live? Yes 04/13/2024 Within the past 12 months, h ave you been hit, slapped, kicked or otherwise physically hurt by someone? No 04/13/2024 Within the past 12 months, h ave you been humiliated or emotionally abused in other ways by your partner or ex-partner? No 04/13/2024 Comments No Sex and Gender Information Value Date Recorded Sex Assigned at Female 09/12/2020 12:05 PM RES HABILITATION ASSISTANT Legal Sex Female 3:26 AM RES HABILITATION ASSISTANT Gender Identity Female 09/12/2020 12:05 PM RES HABILITATION ASSISTANT Sexual Orientation Straight 12/19/2021 10 :44 AM CDT Occupation Industry Job Start Date Job End Date on disability for FMS Not on file Not on file Not on file disabled Not on file Not on file Not on file documented as of this encounter Miscellaneous Notes * Telephone Encounter - Omar Carmona MD - 01/04/2025 3:18 PM CDT Last week Aparicio labs rvwd; nothing on those to explain symptoms unless the potassium is even lower could consider BMP and CBC/diff lab only; if symptoms are ongoing best thing would be see provider perhaps we have open spot in [facility] today/tmrw documented in this encounter Plan of Treatment Upcoming Encounters Date Type Department Care Team (Late st Contact Info) Description 03/26/2025 11:00 AM CDT Therapy Visit [address] [address] Jason Alvares MD [address] [place] [address] Chaya Castillo OTR [facility] [address] [place] [address] 03/29/2025 10:30 AM CDT Therapy Visit [facility] [place] [address] [place] [phone] [place] [address] [place], [place] [id number] 04/02/2025 11:00 AM CDT Therapy Visit [address] [phone] Jason Alvares MD [address] [place] [address] Chaya Castillo OTR [facility] [place] [address] [address] 04/11/2025 12:30 PM CDT Office Visit [facility] [address] 4th [place] [phone] Omar Carmona MD [address] [place] [address] 914635 04/12/2025 2:15 PM CDT Therapy Visit [address] [phone] Jason Alvares MD [address] [place] [address] Chaya Castillo OTR FV [facility] [place] [address] [place] [address] 04/16/2025 11:00 AM CDT Therapy Visit [facility] [place] [phone] Jason Alvares MD [address] [place] [address] Chaya Castillo, OTR [facility] 150 [facility] [place] [address] 04/23/2025 11:00 AM CDT [facility] 150 [place] [address] Jason Alvares MD [address] [place] [address] Chaya Castillo, OTR [facility] 150 [place] [address] 04/30/2025 11:00 AM CDT Therapy [facility] 150 [facility] [place] [phone] Jason Alvares MD [address] [place] [address] [phone] Chaya Castillo, OTR [facility] 150 [place] [address] 05/15/2025 12:30 PM CDT Office Visit [address] [address] Marquise Hanley MD [address] [place] [address] 06/08/2025 9:15 AM CDT Office Visit [facility] Hepatology Clinic [address] [phone] Jignesh Mathias MD [address] [place] [address] 071975 11/05/2025 1:45 PM CDT Office Visit [facility] Dermatology Clinic [address] 3rd [place] [address] Gavi Nieto PAJimmy Dermatology [address] [place] [address] Scheduled Orders Name Type Priority Associated Diagnoses Orde r Schedule Comprehensive metabolic panel (BMP + Alb, Alk Phos, ALT, AST, Total. Bili, TP) Lab Routine Hypokalemia CKD (chronic kidney disease) stage 2, GFR 60-89 ml/min Expected: 01/05/2025 (Approximate), Expires: 01/05/2026 CBC with platelets and differential Lab Panel Routine Anemia Expected: 01/05/2025 (Approximate), Expires: 01/05/2026 documented as of this encounter Goals Goal Patient Goal Type Associated Problems Recent Progress Patient-Stated? Author Quit smoking / using tobacco Lifestyle Rio Will MD Note: 06/25/14 planned quit date documented as of this encounter Visit Diagnoses Diagnosis Hypokalemia- Primary Hypopotassemia CKD (chronic kidney disease) stage 2, GFR 60-89 ml/min Chronic kidney disease, Stage II (mild) Anemia Anemia, unspecified documented in this encounter Additional Health Concerns Infection Onset Date Last Indicated Resolved Time MRSA Comment:Added from external infection. 10/23/2020 10/21/2020 Assessment Noted Time PHQ-9 Depression Total Score: 11 025 7:34 PM CDT documented as of this encounter Care Teams Fish Frog Or Oyster Farmer Relationship Specialty Start Date End Date Omar Carmona MD [address] [place] [address] PCP - General Family Medicine 07/14/24 Barry Kilpatrick MD [address] [place] [address] [id number] [place] [address] Neurology 07/19/14 Mcihelle Henderson I, RN Nurse Coordinator Neurology 07/19/14 Rio Jaquez MD [address] [place] [address] 4 [place], [place] 940805 Family Practice 10/15/14 Jemima Jaramillo MD [address] [place] [address] 4 [place] [address] cage unloader 11/20/14 Kelley Chin RN [address] [phone] Nurse Coordinator Cardiology 11/04/15 Sydnee Saleem MD [address] [place] [address] 508 [place], [place] [phone] Cardiology 11/04/15 Karlene Moya MD [address] [place] [address] [phone] Ophthalmology 06/24/17 Wilbert Quintero, OD [address] [place] [address] 849845 Optometry 06/24/17 Rod Gauthier DPM [address] [place] [address] 388455 Beater Out Leveling Machine Primary Podiatric Medicine 06/21/18 Jan Mahmood MD [address] [facility] [place] [address] MD Gastroenterology 11/05/20 Brandt Quintana MD [address] [place] [address] Resident 11/05/20 Jan Mahmood MD [address] [facility] [address] [place] [address] Assigned Gastroenterology Provider 12/01/20 Dom Eason MD [address] [place] [address] Internal Medicine 12/02/20 Jaimie Vernon, RN Specialty Inspector Agricultural Commodities Cardiology 10/28/21 Marquise Hanley MD [address] [place] [address] 584855 Endocrinology, Diabetes, and Metabolism 03/05/22 Vlad Ramey MD [address] [place] [address] 09255 Cardiovascular Disease 05/07/22 Joesph Crowe MD [address] [place] [address] 784[address] Surgery 05/07/22 Michelle Padilla RN Specialty Inspector Agricultural Commodities Cardiology 07/03/22 Marquise Hanley MD [address] [place] [address] 0[address]65 Assigned Endocrinology Provider 08/15/22 Wagner Oliver MD [address] [place] [address] Critical Care 12/15/22 Joesph Crowe MD [address] [place] [address] 36287 Surgery 03/17/23 Adonay Haq MD [address] [place] [address] [phone] Internal Medicine 06/14/23 Ruth Riddle DPM, Podiatry/Foot and Ankle Surgery [address] [place] [address] Assigned Musculoskeletal Provider 10/22/23 Jignesh Mathias MD [address] [place] [address] [phone] Gastroenterology 09/25/24 Omar Carmona MD [address] [place] [address] 742105 Assigned PCP 12/29/24 Jason Alvares MD [address] [place] [address] 095465 Assigned Neuroscience Provider 12/29/24 Jignesh Mathias MD [address] [place] [address] 17353 Assigned Surgical Provider 12/29/24 Ayad Lopez, PhD LP [address] [place] [address] 045905 Assigned Behavioral Health Provider 02/28/25 Gavi Nieto PA-C [address] [place] [address] [phone] Physician Portable Sawmill Operator Dermatology 03/19/25 documented as of this encounter
--- OUTSIDE RECORDS SUMMARY | 2025-03-24 20:22 | XMS_ITS | Encounter Summary ---
Author Organization [place] Address [address] [place] [address] Care Team Providers Care Life Insurance Actuary Name Role Phone Rio Jaquez MD Primary Care Provider + [phone] Barry Kilpatrick MD Unavailable Michelle Henderson RN Unavailable [phone] Rio Jaquez MD Unavailable [phone] Jemima Jaramillo MD Unavailable Unavai Kelley Bautista RN Unavailable [phone] Sydnee Saleem MD Unavailable [phone] Karlene Moya MD Unavailable [phone] Wilbert Quintero OD Unavailable [phone] Rod GauthierM Unavailable [phone] Nallely Hogue RN Unavailable Unavailable Larisa Vargas RN Unavailable Unavailable Rio Jaquez MD Unavailable [phone] Ruth Yarbrough MD Unavailable [phone] Francisco Lott MD Unavailable [phone] Frida Grace MD Unavailable [phone] Sydnee Saleem MD Unavailable [phone] [...] Unavailable [phone] Joesph Crowe MD Unavailable [phone] Luis Arrington MD Unavailable Michelle Padilla RN Unavailable Unavaila Vlad Rodriguez MD Unavailable Marquise Hanley MD Unavailable Dom Eason MD Unavailable Wagnre Oliver MD Unavailable Eloina Eppersonorachloe Hopper NP Unavailable [phone] Thom Taveras MD Unavailable [phone] Joesph Crowe MD Unavailable [phone] Joesph Crowe MD Unavailable [phone] Adonay Haq MD Unavailable [phone] [facility] Township[facility]ilson MD Unavailable +[phone] Jason Alvares MD Unavailable Ruth Riddle DPM, Podiatry /Foot and Ankle Surgery Unavailable Omar Carmona MD Primary Care Provider [phone] Jignesh Mathias MD Unavailable Adonay Haq MD Unavailable [phone] Omar Carmona MD Unavailable [phone] Jason Alvares MD Unavailable Jignesh Mathias MD Unavailable Ayad Lopez PhD LP Unavailable [phone] Gavi Nieto-C Unavailable [phone] Encounter Details Date Type Department Care Team (Late st Contact Info) Description 11/28/2019 [facility] [address] [place] [address] Rio Jaquez MD [address] [place] [address] Tinea corporis (Primary Dx) Social History Tobacco Use Types Packs/Day Years Used Date Smoking Tobacco: Every Day Cigarettes 1 42.6 Started: 08/09/1982 Smokeless Tobacco: Never Alcohol Use Standard Drinks/Week Comments Yes 0 (1 standard drink = 0.6 oz pur e alcohol) occ Comments No Sex and Gender Information Value Date Recorded Sex Assigned at Female 09/12/2020 12:05 PM METER ATTENDANT Legal Sex Female 3:26 AM METER ATTENDANT Gender Identity Female 09/12/2020 12:05 PM METER ATTENDANT Sexual Orientation Straight 12/19/2021 10 :44 AM CDT Occupation Industry Job Start Date Job End Date on disability for FMS Not on file Not on file Not on file COVID-19 Exposure Response Date Recorded In the last month, have you been in contact with someone who was confirmed or suspected to have Coronavirus / COVID-19? No / Unsure 12/01/2019 9:08 AM CDT documented as of this encounter Plan of Treatment Upcoming Encounters Date Type Department Care Team (Late st Contact Info) Description 03/26/2025 11:00 AM CDT Therapy Visit [facility] 150 [place] [phone] Jason Alvares MD [address] [place] [address] [phone] Chaya Castillo OTR FV [address] [address] 03/29/2025 10:30 AM CDT Therapy Visit [facility] [place] [address] [facility] [address] [place] [phone] [place] [address] [place], [place] 9[address]697 04/02/2025 11:00 AM CDT Therapy Visit [facility] 150 [place] [phone] Jason Alvares MD [address] [place] [address] 432655 Chaya Castillo [facility]TR [facility] 150 [place] [address] 04/11/2025 12:30 PM CDT Office Visit [facility] [address] 4th [place] [phone] Omar Carmona MD [address] [place] [address] 04/12/2025 2:15 PM CDT [facility] [address] [place] [address] Jason Alvares MD [address] [place] [address] Chaya Castillo, OTR [facility] 150 [place] [address] 04/16/2025 11:00 AM CDT Therapy [facility] [address] [facility] [place] [address] Jason Alvares MD [address] [place] [address] Chaya Castillo, OTR FV [place] 150 [place] [address] 04/23/2025 11:00 AM CDT Therapy [facility] [address] [facility] [place] [phone] Jason Alvares MD [address] [place] [address] Chaya Castillo OTR FV [place] 150 [place] [address] 04/30/2025 11:00 AM CDT Therapy [facility] [address] [place] [phone] Jason Alvares MD 420 [facility] 295 [place] [address] Chaya Castillo, OTR [facility] 150 [place] [address] 05/15/2025 12:30 PM CDT Office Visit [address] [phone] Marquise Hanley MD [address] [place] [address] 06/08/2025 9:15 AM CDT Office Visit [facility] Hepatology [facility] [address] [phone] Jignesh Mathias MD [address] [place] [address] 925315 11/05/2025 1:45 PM CDT Office Visit [facility] Dermatology [facility] [address] 3rd [place] [phone] Gavi Nieto PA-C Dermatology [address] [place] [address] documented as of this encounter Goals Goal Patient Goal Type Associated Problems Recent Progress Patient-Stated? Author Quit smoking / using tobacco Lifestyle Rio Will MD Note: 06/25/14 planned quit date documented as of this encounter Visit Diagnoses Diagnosis Tinea corporis- Primary Dermatophytosis of the body documented in this encounter Additional Health Concerns Infection Onset Date Last Indicated Resolved Time MRSA Comment:Added from external infection. 10/23/2020 10/21/2020 Rule Out COVID-19 02/09/2024 02/09/2024 02/09/2024 1:52 AM CDT Assessment Noted Time PHQ-9 Depression Total Score: 10 019 7:06 AM METER ATTENDANT documented as of this encounter Care Teams Life Insurance Actuary Relationship Specialty Start Date End Date Rio Jaquez MD [address] [place] [address] 4 [place] [address] PCP - General Family Practice 12/02/10 07/13/24 Omar Carmona MD [address] [place] [address] 958335 PCP - General Family Medicine 07/14/24 Barry Kilpatrick MD [address] [place] [address] [id number] [place], [place] 806715 Neurology 07/19/14 Michelle Henderson I, RN Nurse Coordinator Neurology 07/19/14 Rio Jaquez MD [address] [place] [address] 4 [place], [place] 686295 Family Practice 10/15/14 Jemima Jaramillo MD newspaper subscription solicitor 11/20/14 Kelley Chin, RN [facility] [address] [place] [address] 347565 Nurse Coordinator Cardiology 11/04/15 Sydnee Saleem MD [address] [place] [address] 508 [place] [address] Cardiology 11/04/15 Karlene Moya MD 516 [place] [address] Ophthalmology 06/24/17 Wilbert Quintero OD [address] [place] [address] Optometry 06/24/17 Rod Gauthier DPM [address] [place] [address] Tapper Balance Wheel Screw Hole Primary Podiatric Medicine 06/21/18 Nallely Hogue, RN Registered Nurse 02/20/19 11/23/22 Larisa Vargas, TANIA Specialty Production Superintendent Cardiology 04/18/19 03/06/22 Rio Jaquez MD [address] [place] [address] Assigned PCP 12/28/19 11/16/20 Ruth Yarbrough MD [address] [place] [address] 094535 Assigned Endocrinology Provider 05/31/20 09/28/20 Francisco Lott MD [address] [place] [address] Assigned Rheumatology Provider 05/31/20 12/13/21 Frida Grace MD [address] [facility] [place] [address] [place] [address] Assigned Pediatric Specialist Provider 05/31/20 09/08/20 Sydnee Saleem MD [address] [facility] [address] [place] [address] Assigned Heart and Vascular Provider 05/31/20 10/22/20 Greg Ortega MD 9 [place] [address] Assigned Surgical Provider 06/23/20 12/06/21 Frida Grace MD [address] [place] [address] [place] [address] Assigned Surgical Provider 05/31/20 06/22/20 Jan Mahmood MD [address] [place] [address] Gastroenterology 11/05/20 Brandt Quintana MD [address] [place] [address] Resident 11/05/20 Jan Mahmood MD [address] [place] [address] Assigned Gastroenterology Provider 12/01/20 Rio Jaquez MD [address] [place] [address] Assigned PCP 11/17/20 09/30/24 Dom Eason MD [address] [place] [address] 440114 Internal Medicine 12/02/20 Jayla Plaza, RN Specialty Production Superintendent Hepatology 01/09/21 02/13/24 Jayla Plaza, RN Specialty Production Superintendent Hepatology 01/10/21 01/10/21 Sydnee Saleem MD [address] [facility] [address] [place] [address]487 Assigned Heart and Vascular Provider 02/02/21 07/24/22 Phan Coello MD Assigned Neuroscience Provider 02/21/21 11/22/21 Cristian Barragan MD [address]45 [place] [address] Assigned Infectious Disease Provider 02/21/21 03/06/22 Dom Eason MD [address] [place] [address] 353 [place], [place] 188274 Assigned Nephrology Provider 04/20/21 01/02/22 Jaimie Vernon, TANIA Specialty Production Superintendent Cardiology 10/28/21 Ruth Riddle DPM, Podiatry/Foot and Ankle Surgery [address] [facility] 300 [place], [place] 368757 Assigned Musculoskeletal Provider 11/30/21 09/30/23 Luis Arrington MD [address] [place] [address] 156195 Assigned Neuroscience Provider 11/23/21 01/02/22 Jason Alvares MD [address] [place] [address] 295 [place], [place] 275115 Assigned Neuroscience Provider 01/03/22 05/15/22 Marquise Hanley MD [address] [place] [address] Endocrinology, Diabetes, and Metabolism 03/05/22 Vlad Ramey MD [address] [place] [address]03 Cardiovascular Disease 05/07/22 Joesph Crowe MD [address] [place] [address]378 Surgery 05/07/22 Luis rArington MD [address] [place] [address] 90379 Assigned Neuroscience Provider 05/16/22 05/14/23 Michelle Padilla RN Specialty Production Superintendent Cardiology 07/03/22 Vlad Ramey MD [address] [place] [address]10 Assigned Heart and Vascular Provider 07/25/22 05/28/23 Marquise Hanley MD [address] [place] [address] 79841 Assigned Endocrinology Provider 08/15/22 Dom Eason MD [address] [place] [address]679 Assigned Nephrology Provider 11/28/22 02/19/23 Wagner Oliver MD [address] [place] [address] Critical Care 12/15/22 Laura Epperson, CRIBBING SETTER [address] [facility] [address] [place] [address] Assigned Nephrology Provider 02/20/23 08/30/24 Thom Taveras MD [address] [facility] [address] [place] [address] Assigned Cancer Care Provider 02/06/23 08/20/23 Joesph Crowe MD 909 [place] [address] Surgery 03/17/23 Joesph Crowe MD 909 [place] [address] Assigned Surgical Provider 04/03/23 09/30/24 Adonay Haq MD 909 [place] [address] Internal Medicine 06/14/23OctoberDenilson MD [address] [facility] [address] [place] [address] Assigned Heart and Vascular Provider 05/29/23 11/28/24 Jason Alvares MD [address] [facility] 295 [place] [address] Assigned Neuroscience Provider 05/15/23 11/28/24 Ruth Riddle DPM, Podiatry/Foot and Ankle Surgery [address] [place] [address] [place] [address] Assigned Musculoskeletal Provider 10/22/23 Jignesh Mathias MD [address] [place] [address] 912995 Gastroenterology 09/25/24 Adonay Haq MD [address] [place] [address] 149695 Assigned PCP 10/01/24 12/28/24 Omar Carmona MD [address] [place] [address] 786845 Assigned PCP 12/29/24 Jason Alvares MD [address] [place] [address] 259255 Assigned Neuroscience Provider 12/29/24 Jignesh Mathias MD [address] [place] [address]100 Assigned Surgical Provider 12/29/24 Ayad Lopez, PhD LP [address] [place] [address] 455505 Assigned Behavioral Health Provider 02/28/25 Gavi Nieto PA-C [address] [place] [address] 334455 Physician Facilities Director Dermatology 03/19/25 documented as of this encounter
--- OUTSIDE RECORDS SUMMARY | 2025-03-24 20:22 | XMS_ITS | Encounter Summary ---
Author Organization [facility] Address [address] [place] [address] Care Team Providers Care Wellness Coach Name Role Phone Rio Jaquez MD Primary Care Provider + [phone] Barry Kilpatrick MD Unavailable Michelle Henderson RN Unavailable [phone] Rio Jaquez MD Unavailable +[phone] Jemima Jaramillo MD Unavailable Unavai Kelley Bautista RN Unavailable +[phone] Sydnee Saleem MD Unavailable +[phone] Karlene Moya MD Unavailable [phone] Wilbert Quintero OD Unavailable +[phone] Rod GauthierM Unavailable +[phone] Nallely Hogue RN Unavailable Unavailable Larisa Vargas RN Unavailable Unavailable Rio Jaquez MD Unavailable +[phone] Ruth Yarbrough MD Unavailable +[phone] Francisco Lott MD Unavailable [phone] Frida Grace MD Unavailable +[phone] Sydnee Saleem MD Unavailable +[phone] [...] Unavailable Eloina Eppersonorachloe Hopper NP Unavailable +[phone] Thom Taveras MD Unavailable [phone] Joesph Crowe MD Unavailable +[phone] Joesph Crowe MD Unavailable +[phone] Adonay Haq MD Unavailable [phone] [facility] Unavailable +[phone] Jason Alvares MD Unavailable Ruth Riddle DPM, Podiatry /Foot and Ankle Surgery Unavailable Omar Carmona MD Primary Care Provider [phone] Jignesh Mathias MD Unavailable Adonay Haq MD Unavailable [phone] Omar bragg MD Unavailable [phone] Jason Alvares MD Unavailable Jignesh Mathias MD Unavailable Ayad Lopez PhD LP Unavailable [phone] Gavi Nieto-Keisha Unavailable +[phone] Encounter Details Date Type Department Care Team (Late st Contact Info) Description 11/06/2019 [facility] [address] [address] Francisco Lott MD [address] [place] [address] Social History Tobacco Use Types Packs/Day Years Used Date Smoking Tobacco: Every Day Cigarettes 1 42.6 Started: 08/09/1982 Smokeless Tobacco: Never Alcohol Use Standard Drinks/Week Comments Yes 0 (1 standard drink = 0.6 oz pur e alcohol) occ Comments No Sex and Gender Information Value Date Recorded Sex Assigned at Female 09/12/2020 12:05 PM LEAVE COORDINATOR Legal Sex Female 3:26 AM LEAVE COORDINATOR Gender Identity Female 09/12/2020 12:05 PM LEAVE COORDINATOR Sexual Orientation Straight 12/19/2021 10 :44 AM CDT Occupation Industry Job Start Date Job End Date on disability for FMS Not on file Not on file Not on file documented as of this encounter Plan of Treatment Upcoming Encounters Date Type Department Care Team (Late st Contact Info) Description 03/26/2025 11:00 AM CDT Therapy Visit [facility] [address] [place] [address] Jason Alvares MD [address] [place] [address] [phone] Chaya Castillo OTR [address] [address] 03/29/2025 10:30 AM CDT Therapy Visit [facility] [address] [place] [phone] [place] [address] MICHAEL [address] [place] [address] 04/02/2025 11:00 AM CDT Therapy Visit [facility] [address] [place] [phone] Jason Alvares MD [address] [place] [address] Chaya Castillo OTR [facility] [address] [place] [address] 04/11/2025 12:30 PM CDT Office Visit [facility] [address] 4th [place] [phone] Omar Carmona MD [address] [place] [address] 04/12/2025 2:15 PM CDT Therapy Visit [facility] [place] [address] [place] [address] Jason Alvares MD [address] [place] [address] Chaya Castillo OTR [facility] [address] [place] [address] 04/16/2025 11:00 AM CDT Therapy [facility] [address] [place] [phone] Jason Alvares MD [address] [place] [address] Chaya Castillo OTR [facility] [address] [place] [address] 04/23/2025 11:00 AM CDT Therapy [facility] [address] [place] [phone] Jason Alvares MD [address] [place] [address] Chaya Castillo OTR [facility] [address] [place] [address] 04/30/2025 11:00 AM CDT Therapy Visit [facility] [address] [place] [phone] Jason Alvares MD [address] [place] [address] Chaya Castillo, WESR [address] [address] 05/15/2025 12:30 PM CDT Office Visit [address] [phone] Marquise Hanley MD [address] [place] [address] 06/08/2025 9:15 AM CDT Office Visit [facility] Hepatology Clinic [address] [phone] Jignesh Mathias MD [address] [place] [address] 848975 11/05/2025 1:45 PM CDT Office Visit [facility] Dermatology Clinic [address] 3rd [place] [phone] Gavi Nieto PA-C Dermatology [address] [place] [address] documented as of this encounter Goals Goal [...] Noted Time PHQ-9 Depression Total Score: 10 10/11/2 019 7:06 AM LEAVE COORDINATOR documented as of this encounter Care Teams Wellness Coach Relationship Specialty Start Date End Date Rio Jaquez MD [address] [place] [address] 4 [place], [place] 449575 PCP - General Family Practice 12/02/10 07/13/24 Omar Carmona MD [address] [place] [address] 191275 PCP - General Family Medicine 07/14/24 Barry Kilpatrick MD [address] [place] [address] [id number] [place] [address] Neurology 07/19/14 Michelle Henderson RN Nurse Coordinator Neurology 07/19/14 Rio Jaquez MD [address] [place] [address] 4 [place], [place] 367985 Family Practice 10/15/14 Jemima Jaramillo MD competitive intelligence analyst 11/20/14 Kelley Chin, TANIA [address] [phone] Nurse Coordinator Cardiology 11/04/15 Sydnee Saleem MD [address] [place] [address] 508 [place], [place] 295215 Cardiology 11/04/15 Karlene Moya MD [address] [place] [address] 322645 Ophthalmology 06/24/17 Wilbert Quintero, OD [address] [place] [address] Optometry 06/24/17 Rod Gauthier DPM [address] [place] [address]883 Barrel Inspector Primary Podiatric Medicine 06/21/18 Nallely Hogue, RN Registered Nurse 02/20/19 11/23/22 Larisa Vargas, TANIA Specialty Advertising Solicitor Cardiology 04/18/19 03/06/22 Rio Jaquez MD [address] [place] [address] 4 [place], [place] 066345 Assigned PCP 12/28/19 11/16/20 Ruth Yarbrough MD [address] [place] [address] 101 [place], [place] 762555 Assigned Endocrinology Provider 05/31/20 09/28/20 Francisco Lott MD [address] [place] [address] Assigned Rheumatology Provider 05/31/20 12/13/21 Frida Grace MD [facility] [facility] [place] [address] [place] [address] Assigned Pediatric Specialist Provider 05/31/20 09/08/20 Sydnee Saleem MD [address] [facility] [address] [place] [address] Assigned Heart and Vascular Provider 05/31/20 10/22/20 Greg Ortega MD [address] [place] [address] 360645 Assigned Surgical Provider 06/23/20 12/06/21 Frida Grace MD [address] [facility] [place] [address] [place] [address] Assigned Surgical Provider 05/31/20 06/22/20 Jan Mahmood MD [address] [place] [address] [address] [place] [address] Gastroenterology 11/05/20 [place] [address] [place] [address] Resident 11/05/20 Jan Mahmood MD [address] [place] [address] [address] [place] [address] Assigned Gastroenterology Provider 12/01/20 Rio Jaquez MD 909 [facility] 4 [place], [place] 182085 Assigned PCP 11/17/20 09/30/24 Dom Eason MD 717 [facility] 353 [place], [place] 352934 Internal Medicine 12/02/20 Jayla Plaza, RN Specialty Advertising Solicitor Hepatology 01/09/21 02/13/24 Jayla Plaza, RN Specialty Advertising Solicitor Hepatology 01/10/21 01/10/21 Sydnee Saleem MD [address] [address] Assigned Heart and Vascular Provider 02/02/21 07/24/22 Phan Coello MD Assigned Neuroscience Provider 02/21/21 11/22/21 Cristian Barragan MD 2945 [place] [address] Assigned Infectious Disease Provider 02/21/21 03/06/22 Dom Eason MD [address] [place] [address] Assigned Nephrology Provider 04/20/21 01/02/22 Jaimie Vernon, RN Specialty Advertising Solicitor Cardiology 10/28/21 Ruth Riddle, DPM, Podiatry/Foot and Ankle Surgery [address] [address] Assigned Musculoskeletal Provider 11/30/21 09/30/23 Luis Arrington MD [address] [place] [address] Assigned Neuroscience Provider 11/23/21 01/02/22 Jason Alvares MD [address] [place] [address] 295 [place] [address] Assigned Neuroscience Provider 01/03/22 05/15/22 Marquise Hanley MD [address] [place] [address] Endocrinology, Diabetes, and Metabolism 03/05/22 Vlad Ramey MD [address] [place] [address] Cardiovascular Disease 05/07/22 Joesph Crowe MD [address] [place] [address] 10471 Surgery 05/07/22 Luis Arrington MD [address] [place] [address] Assigned Neuroscience Provider 05/16/22 05/14/23 Michelle Padilla, TANIA Specialty Advertising Solicitor Cardiology 07/03/22 Vlad Ramey MD [address] [place] [address] Assigned Heart and Vascular Provider 07/25/22 05/28/23 Marquise Hanley MD [address] [place] [address] Assigned Endocrinology Provider 08/15/22 Dom Eason MD [address] [place] [address] Assigned Nephrology Provider 11/28/22 02/19/23 Wagner Oliver MD [address] [place] [address] Critical Care 12/15/22 Laura Epperson NP [address] [place] [address] [address] [place] [address] Assigned Nephrology Provider 02/20/23 08/30/24 Thom Taveras MD [facility] [address] [place] [address] Assigned Cancer Care Provider 02/06/23 08/20/23 Joesph Crowe MD [address] [place] [address] 28399 Surgery 03/17/23 Joesph Crowe MD [address] [place] [address] Assigned Surgical Provider 04/03/23 09/30/24 Adonay Haq MD [address] [place] [address] Internal Medicine 06/14/23OctoberDenilson MD 6405 [facility] [address] [place] [address] Assigned Heart and Vascular Provider 05/29/23 11/28/24 Jason Alvares MD [address] [place] [address] 295 [place] [address] Assigned Neuroscience Provider 05/15/23 11/28/24 Ruth Riddle DPM, Podiatry/Foot and Ankle Surgery [address] [facility] 300 [place], [place] 932977 Assigned Musculoskeletal Provider 10/22/23 Jignesh Mathias MD [address] [place] [address] Gastroenterology 09/25/24 Adonay Haq MD [address] [place] [address] 322625 Assigned PCP 10/01/24 12/28/24 Omar Carmona MD [address] [place] [address] 297265 Assigned PCP 12/29/24 Jason Alvares MD [address] [place] [address] 051455 Assigned Neuroscience Provider 12/29/24 Jignesh Mathias MD [address] [place] [address] 451685 Assigned Surgical Provider 12/29/24 Ayad Lopez, PhD LP [address] [place] [address] 075375 Assigned Behavioral Health Provider 02/28/25 Gavi Nieto, PA-C [address] [place] [address] 293115 Physician Radiation Oncology Nurse Dermatology 03/19/25 documented as of this encounter
--- OUTSIDE RECORDS SUMMARY | 2025-03-24 20:22 | XMS_ITS | Encounter Summary ---
Author Organization [facility] Address [address] [place] [address] Care Team Providers Care Nike Athlete Name Role Phone Barry Kilpatrick MD Unavailable Michelle Henderson RN Unavailable [phone] Rio Jaquez MD Unavailable [phone] Jemima Jaramillo MD Unavailable Unavai Kelley Bautista RN Unavailable [phone] Sydnee Saleem MD Unavailable [phone] Karlene Moya MD Unavailable [phone] Wilbert Quintero OD Unavailable +[phone] Rod Gauthier DPM Unavailable Jan Mahmood MD Unavailable [phone] Brandt Quitnana MD Unavailable Jan Mahmood MD Unavailable [phone] Dom Eason MD Unavailable [phone] Jaimie Vernon RN Unavailable Unavailable Marquise Hanley MD Unavailable [phone] Vlad Ramey MD Unavailable [phone] Joesph Crowe MD Unavailable Michelle Padilla RN Unavailable Unavaila ble Marquise Hanley MD Unavailable [phone] Wagner Oliver MD Unavailable + [phone] Joesph Crowe MD Unavailable +[phone] Adonay Haq MD Unavailable [phone] Ruth RiddleM, Podiatry /Foot and Ankle Surgery Unavailable Omar Carmona MD Primary Care Provider [phone] Jignesh Mathias MD Unavailable Omar Carmona MD Unavailable [phone] Jason Alvares MD Unavailable Jignesh Mathias MD Unavailable Encounter Details Date Type Department Care Team (Latest Contact Info) Description 02/21/2025 Travel Social History Tobacco Use Types Packs/Day Years Used Date Smoking Tobacco: Every Day Cigarettes 0.5 42.6 Started: 08/09/1982 Other Smokeless Tobacco: Never Comments:1/2 PPD Alcohol Use Standard Drinks/Week Comments Not Currently 0 (1 standard drink = 0.6 oz pur e alcohol) 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 More than three times a week 08/27/2021 How often do you get togethe r with friends or relatives? More than three times a week 08/27/2021 Attends [employer] Not on file 08/27 Do you belong to any clubs o r organizations such as religious groups, unions, fraternal or athletic groups, or [...] Answer Date Recorded PHQ-2 Score 3 12/04/2024 [facility] - Occupational Stress Questionnaire Answer Date Recorded [...] Date Recorded Do you have housing? (Antony g is defined as stable permanent housing and does not include staying outside in a car, in a tent, in an abandoned building, in an overnight retirement, or couch-surfing.) Yes 07/12/2023 Are you worried [...] Sex Assigned at Female 09/12/2020 12:05 PM MEDICAL CLAIMS SPECIALIST Legal Sex Female 3:26 AM MEDICAL CLAIMS SPECIALIST Gender Identity Female 09/12/2020 12:05 PM MEDICAL CLAIMS SPECIALIST Sexual Orientation Straight 12/19/2021 10 :44 AM [...] Description 03/26/2025 11:00 AM CDT Therapy Visit [address] [phone] Jason Alvares MD [address] [place] [address] 026015 Chaya Castillo OTR [facility] [address] [address] 03/29/2025 10:30 AM CDT Therapy Visit [facility] [address] [facility] [address] [place] [address] [place] [address] [place], [place] [address] 04/02/2025 11:00 AM CDT Therapy Visit [address] [phone] Jason Alvares MD [address] 237[address] Castillo, Chaya A, OTR [facility] [place] [address] [place] [address] 04/11/2025 12:30 PM CDT Office Visit [facility] Primary Care Clinic [address] 4th [place] [address] Omar Carmona MD [address] [place] [address] 04/12/2025 2:15 PM CDT Therapy Visit [facility] [place] [phone] Jason Alvares MD [address] [place] [address] Chaya Castillo OTR [facility] [place] [address] [place] [address] 04/16/2025 11:00 AM CDT Therapy Visit [facility] [address] [facility] [place] [phone] Jason Alvares MD [address] [place] [address] Chaya Castillo, OTR [facility] [place] [address] [place] [address] 04/23/2025 11:00 AM CDT Therapy Visit [facility] [address] [place] [phone] Jason Alvares MD [address] [place] [address] Chaya Castillo OTR [facility] [place] [address] [place] [address] 04/30/2025 11:00 AM CDT Therapy Visit [facility] Services [facility] 150 [place] [address] Jason Alvares MD 420 [facility] 295 [place] [address] Chaya Castillo, OTR [facility] 150 [place] [address] 05/15/2025 12:30 PM CDT Office Visit [address] [phone] Marquise Hanley MD [address] [place] [address] 06/08/2025 9:15 AM CDT Office Visit [facility] Hepatology Clinic [address] [phone] Jignesh Mathias MD [address] [place] [address] 876405 11/05/2025 1:45 PM CDT Office Visit [facility] Dermatology Clinic [address] 3rd [place] [address] Gavi Nieto PA-C Dermatology [address] [place] [address] documented as of this encounter Goals Goal [...] documented as of this encounter Care Teams Nike Athlete Relationship Specialty Start Date End Date Omar Carmona MD [address] [place] [address] [phone] PCP - General Family Medicine 07/14/24 Barry Kilpatrick MD [address] [place] [address] [id number] [place], [place] 214775 Neurology 07/19/14 Michelle Henderson I, TANIA Nurse Coordinator Neurology 07/19/14 Rio Jaquez MD [address] [place] [address] 967435 Family Practice 10/15/14 Jeimma Jaramillo MD [address] [place] [address] 18093 office administrator 11/20/14 Kelley Chin, TANIA [facility] 909 [place], [place] 218215 Nurse Coordinator Cardiology 11/04/15 Sydnee Saleem MD [address] [place] [address] 508 [place], [place] 665975 Cardiology 11/04/15 Karlene Moya MD 6 [place], [place] 099795 Ophthalmology 06/24/17 Wilbert Quintero, OD [address] [place] [address] [phone] Optometry 06/24/17 Rod Gauthier DPM [address] [place] [address] 16[address] Shipyard Painter Helper Primary Podiatric Medicine 06/21/18 Jan Mahmood MD [address] [place] [address] Gastroenterology 11/05/20 Brandt Quintana MD [address] [place] [address] Resident 11/05/20 Jan Mahmood MD [address] [place] [address] 15942 Assigned Gastroenterology Provider 12/01/20 Dom Eason MD [address] [place] [address] Internal Medicine 12/02/20 Jaimie Vernon, RN Specialty Social Worker Psychiatric Cardiology 10/28/21 Marquise Hanley MD [address] [place] [address] Endocrinology, Diabetes, and Metabolism 03/05/22 Vlad Ramey MD [address] [place] [address] 36055 Cardiovascular Disease 05/07/22 Joesph Crowe MD [address] [place] [address] Surgery 05/07/22 Michelle Padilla, RN Specialty Social Worker Psychiatric Cardiology 07/03/22 Marquise Hanley MD [address] [place] [address] Assigned Endocrinology Provider 08/15/22 Wagner Oliver MD [address] [place] [address] Critical Care 12/15/22 Joesph Crowe MD [address] [place] [address] 24413 Surgery 03/17/23 Adonay Haq MD [address] [place] [address] Internal Medicine 06/14/23 Ruth Riddle DPVik, Podiatry/Foot and Ankle Surgery [address] [place] [place] [address] Assigned Musculoskeletal Provider 10/22/23 Jignesh Mathias MD [address] [place] [address] Gastroenterology 09/25/24 Omar Carmona MD [address] [place] [address] 52527 Assigned PCP 12/29/24 Jason Alvares MD [address] [place] [address] 550[address] Assigned Neuroscience Provider 12/29/24 Jignesh Mathias MD [address] [place] [address]44 Assigned Surgical Provider 12/29/24 documented as of this encounter
--- OUTSIDE RECORDS SUMMARY | 2025-03-24 20:22 | XMS_ITS | Encounter Summary ---
Author Organization [place] Address [address] [place] [address] Care Team Providers Care Roll Trucker Name Role Phone Barry Kilpatrick MD Unavailable Michelle Henderson RN Unavailable [phone] Rio Jaquez MD Unavailable [phone] Jemima Jaramillo MD Unavailable Unavai Kelley Bautista RN Unavailable [phone] Sydnee Saleem MD Unavailable [phone] Karlene Moya MD Unavailable [phone] Wilbert Quintero OD Unavailable [phone] Rod Gauthier DPM Unavailable Jan Mahmood MD Unavailable [phone] Brandt Quintana MD Unavailable Jan Mahmood MD Unavailable [phone] Dom Eason MD Unavailable +[phone] Jaimie Vernon RN Unavailable Unavailable Marquise Hanley MD Unavailable +[phone] Vlad Ramey MD Unavailable [phone] Joesph Crowe MD Unavailable [phone] Michelle Padilla RN Unavailable Unavaila ble Marquise Hanley MD Unavailable [phone] Wagner Oliver MD Unavailable [phone] Joesph Crowe MD Unavailable [phone] Adonay Haq MD Unavailable [phone] Ruth Riddle DPM, Podiatry /Foot and Ankle Surgery Unavailable Omar Carmona MD Primary Care Provider [phone] Jignesh Mathias MD Unavailable Omar Carmona MD Unavailable [phone] Jason Alvares MD Unavailable Jignesh Mathias MD Unavailable Ayad Lopez PhD LP Unavailable [phone] Gavi Nieto PA-C Unavailable +[phone] Encounter Details Date Type Department Care Team (Late st Contact Info) Description 02/16/2025 [facility] [address] [facility] [address] [place] [address] [place] [address] [place] [address] Social History Tobacco Use Types Packs/Day Years [...] than three times a week 08/27/2021 Attends Druze Services Not on file 08/27 Do you [...] Answer Date Recorded PHQ-2 Score 3 12/04/2024 [facility] - Occupational Stress Questionnaire Answer Date Recorded [...] in an abandoned building, in an overnight usp, or couch-surfing.) Yes 07/12/2023 Are you worried [...] Sex Assigned at Female 09/12/2020 12:05 PM BAR STEWARD Legal Sex Female 3:26 AM BAR STEWARD Gender Identity Female 09/12/2020 12:05 PM BAR STEWARD Sexual Orientation Straight 12/19/2021 10 :44 AM [...] Description 03/26/2025 11:00 AM CDT Therapy Visit [address] [phone] Jason Alvares MD [address] [place] [address] 295 [place] [address] Chaya Castillo OTR [facility] [address] 089977 03/29/2025 10:30 AM CDT Therapy Visit [facility] [address] [facility] [address] [place] [phone] [place] [address] [place] [address] 04/02/2025 11:00 AM CDT Therapy Visit [facility] [place] [address] [facility] [place] [phone] Jason Alvares MD [address] [place] [address] Chaya Castillo OTR [facility] [address] [place] [address] 04/11/2025 12:30 PM CDT Office Visit [facility] [address] 4th [place] [phone] Omar Carmona MD [address] [place] [address] 182425 04/12/2025 2:15 PM CDT Therapy Visit [facility] [address] [facility] [place] [phone] Jason Alvares MD [address] [place] [address] Chaya Castillo OTR [facility] [address] [place] [address] 04/16/2025 11:00 AM CDT Therapy [facility] [address] [facility] [place] [phone] Jason Alvares MD [address] [place] [address] Chaya Castillo OTR [facility] [address] [place] [address] 04/23/2025 11:00 AM CDT Therapy Visit [address] [phone] Jason Alvares MD [address] [place] [address] Chaya Castillo OTR [address] [address] 04/30/2025 11:00 AM CDT Therapy Visit [address] [phone] Jason Alvares MD [address] [place] [address] Chaya Castillo OTR [address] [address] 05/15/2025 12:30 PM CDT Office Visit [address] [phone] Marquise Hanley MD [address] [place] [address] 034975 06/08/2025 9:15 AM CDT Office Visit [facility] [address] [phone] Jignesh Mathias MD [address] [place] [address] 017315 11/05/2025 1:45 PM CDT Office Visit [facility] [address] 3rd [place] [phone] Gavi Nieto PA-C Dermatology [address] [place] [address] documented as of this encounter Goals Goal [...] documented as of this encounter Care Teams Roll Trucker Relationship Specialty Start Date End Date Omar Carmona MD [address] [place] [address] PCP - General Family Medicine 07/14/24 Barry Kilpatrick MD [address] [place] [address] [id number] [place], [place] [phone] Neurology 07/19/14 Michelle Henderson I, TANIA Nurse Coordinator Neurology 07/19/14 Rio Jaquez MD [address] [place] [address] Family Practice 10/15/14 Jemima Jaramillo MD [address] [place] [address]2784 child care counselor 11/20/14 Kelley Chin, TANIA [address] [address] Nurse Coordinator Cardiology 11/04/15 Sydnee Saleem MD [address] [place] [address] 508 [place] [address] Cardiology 11/04/15 Karlene Moya MD [address] [place] [address] Ophthalmology 06/24/17 Wilbert Quintero, OD [address] [place] [address] Optometry 06/24/17 Rod Gauthier DPM [address] [place] [address] [phone] Fashion Photographer Primary Podiatric Medicine 06/21/18 Jan Mahmood MD [address] [place] [address] MD Gastroenterology 11/05/20 Brandt Quintana MD [address] [place] [address] Resident 11/05/20 Jan Mahmood MD [address] [place] [address]24 Assigned Gastroenterology Provider 12/01/20 Dom Eason MD [address] [address] Internal Medicine 12/02/20 Jaimie Vernon, TANIA Specialty Photographic Equipment Inspector Cardiology 10/28/21 Marquise [place] MD [address] [place] [address] Endocrinology, Diabetes, and Metabolism 03/05/22 Vlad Ramey MD [address] [place] [address] 52942 Cardiovascular Disease 05/07/22 Joesph Crowe MD [address] [place] [address] 86547 Surgery 05/07/22 Michelle Padilla, RN Specialty Photographic Equipment Inspector Cardiology 07/03/22 Marquise [place] MD [address] [place] [address] 36547 Assigned Endocrinology Provider 08/15/22 aWgner Oliver MD [address] [place] [address] Critical Care 12/15/22 Joesph Crowe MD [address] [place] [address] 92020 Surgery 03/17/23 Adonay Haq MD [address] [place] [address] 09502 Internal Medicine 06/14/23 Ruth Riddle, DPM, Podiatry/Foot and Ankle Surgery [address] [place] [address] Assigned Musculoskeletal Provider 10/22/23 Jignesh Mathias MD [address] [place] [address] 081205 Gastroenterology 09/25/24 Omar Carmona MD [address] [place] [address] 516535 Assigned PCP 12/29/24 Jason Alvares MD [address] [place] [address] 859445 Assigned Neuroscience Provider 12/29/24 Jignesh Mathias MD [address] [place] [address] 897105 Assigned Surgical Provider 12/29/24 Ayad Lopez, PhD LP [address] [place] [address] [phone] Assigned Behavioral Health Provider 02/28/25 Gavi Nieto, PA-C [address] [place] [address] [phone] Physician Dairy Farm Supervisor Dermatology 03/19/25 documented as of this encounter
--- OUTSIDE RECORDS SUMMARY | 2025-03-24 20:22 | XMS_ITS | Encounter Summary ---
Author Organization [place] Address [address] [place] [address] Care Team Providers Care Manager Retirement Name Role Phone Barry Kilpatrick MD Unavailable iMchelle Henderson RN Unavailable [phone] Rio Jaquez MD Unavailable [phone] Jemima Jaramillo MD Unavailable Unavai Kelley Bautista RN Unavailable [phone] Sydnee Saleem MD Unavailable [phone] Karlene Moya MD Unavailable [phone] Wilbert Quintero OD Unavailable [phone] Rod Gauthier DPM Unavailable Jan Mahmood MD Unavailable [phone] Brandt Quintana MD Unavailable Jan Mahmood MD Unavailable [phone] Dom Eason MD Unavailable [phone] Jaimie Vernon RN Unavailable Unavailable Marquise Hanley MD Unavailable [phone] Vlad Ramey MD Unavailable [phone] Joesph Crowe MD Unavailable [phone] Michelle Padilla RN Unavailable Unavaila ble Marquise Hanley MD Unavailable [phone] Wagner Oliver MD Unavailable [phone] Joesph Crowe MD Unavailable Adonay Haq MD Unavailable [phone] Ruth RiddleM, Podiatry /Foot and Ankle Surgery Unavailable Omar Carmona MD Primary Care Provider [phone] Jignesh Mathias MD Unavailable Omar Carmona MD Unavailable [phone] Jason Alvares MD Unavailable Jignesh Mathias MD Unavailable Reason for Visit * Reason Onset Date Comments Refill Request 02/12/2025 levothyroxine (S YNTHROID/LEVOTHROID) 50 MCG tablet Encounter Details Date Type Department Care Team (Late st Contact Info) Description 02/12/2025 [facility] [address] [address] Omar Carmona MD [address] [place] [address] Refill Request (levothyroxine (SYNTHROID/LEVOTHROID) 50 MCG tablet) Social History Tobacco Use Types Packs/Day Years [...] than three times a week 08/27/2021 Attends [employer]ism Services Not on file 08/27 Do you belong to any clubs o r organizations such as scientology groups, unions, fraternal or athletic groups, or [...] Answer Date Recorded PHQ-2 Score 3 12/04/2024 [facility] - Occupational Stress [...] in an abandoned building, in an overnight prison, or couch-surfing.) Yes 07/12/2023 Are you worried [...] Sex Assigned at Female 09/12/2020 12:05 PM TREATING PLANT OPERATOR Legal Sex Female 3:26 AM TREATING PLANT OPERATOR Gender Identity Female 09/12/2020 12:05 PM TREATING PLANT OPERATOR Sexual Orientation Straight 12/19/2021 10 :44 AM CDT Occupation Industry Job Start Date Job End Date on disability for FMS Not on file Not on file Not on file disabled Not on file Not on file Not on file documented as of this encounter Miscellaneous Notes * Telephone Encounter - Sapna Payne RN - 02/12/2025 3:52 PM CDT Images from the original note were not included. Last Written Prescription: Disp Refills Start End GRACE levothyroxine (SYNTHROID/LEVOTHROID) 50 MCG tablet 90 tablet 1 06/15/2024 -- No Sig: TAKE 1 TABLET BY MOUTH DAILY ALONG WITH A 25MCG TABLET WEDNESDAY AND WEDNESDAY Last Visit Date: 01/10/2025 [facility] Future Visit Date: 04/11/2025 12:30 PM (30 min) Miranda Arrive by: 12:15 PM [facility] Omar Carmona MD Refill decision: [x] Medication unable to be refilled by RN due to: Overdue labs/test: TSH TSH Date Value Ref Range Status 02/09/2024 0.49 0.30 - 4.20 uIU/mL Final 04/17/2022 1.28 0.40 - 4.00 mU/L Final 12/13/2020 1.57 0.40 - 4.00 mU/L Final Request from pharmacy: Requested Prescriptions Pending Prescriptions Disp Refills levothyroxine (SYNTHROID/LEVOTHROID) 50 MCG tablet 90 tablet 1 Sig: TAKE 1 TABLET BY MOUTH DAILY ALONG WITH A 25MCG TABLET WEDNESDAY AND WEDNESDAY Thyroid Protocol Failed - 02/12/2025 3:52 PM Failed - Normal TSH on file in past 12 months Recent Labs Lab Test 02/09/24 0342 TSH 0.49 Passed - Patient is 12 years or older Passed - Medication is active on med list and the sig matches. RN to manually verify dose and sig if red X/fail. If the protocol passes (green check), you do not need to verify med dose and sig. A prescription matches if they are the same clinical intention. For Example: once daily and every morning are the same. The protocol can not identify upper and lower case letters as matching and will fail. For Example: Take 1 tablet (50 mg) by mouth daily TAKE 1 TABLET (50 MG) BY MOUTH DAILY For all fails (red x), verify dose and sig. If the refill does match what is on file, the RN can still proceed to approve the refill request. If they do not match, route to the appropriate provider. Passed - Recent (12 month) or future (90 days) visit with authorizing provider's specialty (provided they have been seen in the past 15 months) The patient must have completed an in-person or virtual visit within the past 12 months or has a future visit scheduled within the next 90 days with the authorizing provider???s specialty. Urgent care and e-visits do not qualify as an office visit for this protocol. Passed - Medication indicated for associated diagnosis Medication is associated with one or more of the following diagnoses: Hypothyroidism Thyroid stimulating hormone suppression therapy Thyroid cancer Acquired atrophy of thyroid Passed - No active on record If patient is or has had a positive test, please check TSH. Passed - No positive test in past 12 months If patient is or has had a positive test, please check TSH. * Telephone Encounter - Polly Mcpherson LPN - 02/12/2025 7:46 AM CDT Images from the original note were not included. documented in this encounter Plan of Treatment Upcoming Encounters Date Type Department Care Team (Late st Contact Info) Description 03/26/2025 11:00 AM CDT Therapy Visit [facility] [address] [place] [phone] Jason Alvares MD [address] [place] [address] [phone] Chaya Castillo OTR [facility] [address] [place] [address] 715367 03/29/2025 10:30 AM CDT Therapy Visit [facility] [address] [facility] [address] [place] [phone] [place] [address] [place] [address] 04/02/2025 11:00 AM CDT Therapy [facility] [address] [place] [phone] Jason Alvares MD [address] [place] [address] 055845 Chaya Castillo [facility]TR [facility] [address] [place], [place] 543447 04/11/2025 12:30 PM CDT Office Visit [facility] [address] 4th [place] [phone] Omar Carmona MD [address] [place] [address] 04/12/2025 2:15 PM CDT Therapy Visit [facility] [address] [place] [address] Jason Alvares MD [address] [place] [address] Chaya Castillo, OTR [facility] [address] [facility] [place] [address] 04/16/2025 11:00 AM CDT Therapy Visit [facility] [place] [address] [place] [address] Jason Alvares MD [address] [place] [address] 059755 Chaya Castillo, OTR [facility] [address] [facility] [place] [address] 04/23/2025 11:00 AM CDT Therapy Visit [facility] [place] [address] [place] [address] Jason Alvares MD [address] [place] [address] [phone] Chaya Castillo OTR [facility] [address] [place] [address] 04/30/2025 11:00 AM CDT Therapy Visit [facility] [address] [place] [address] Jason Alvares MD [address] [facility] [address] [place] [address] Chaya Castillo, OTR [facility] [address] [place] [address] 05/15/2025 12:30 PM CDT Office Visit [address] [phone] Marquise Hanley MD [address] [place] [address] 06/08/2025 9:15 AM CDT Office Visit [facility] [address] [phone] Jignesh Mathias MD [address] [place] [address] 11/05/2025 1:45 PM CDT Office Visit [facility] Dermatology [address] 3rd [place] [phone] Gavi Nieto PA-C Dermatology [address] [place] [address] Scheduled Orders Name Type Priority Associated Diagnoses Orde r Schedule TSH with free T4 reflex Lab Routine Acquired hypothyroidism Expected: 02/12/2025 (Approximate), Expires: 02/12/2026 documented as of this encounter Goals Goal Patient Goal Type Associated Problems Recent Progress Patient-Stated? Author Quit smoking / using tobacco Lifestyle Rio Will MD Note: 06/25/14 planned quit date documented as of this encounter Visit Diagnoses Diagnosis Acquired hypothyroidism Unspecified hypothyroidism documented in this encounter Additional Health Concerns Infection Onset Date Last Indicated Resolved Time MRSA Comment:Added from external infection. 10/23/2020 10/21/2020 Assessment Noted Time PHQ-9 Depression Total Score: 11 12/03/ 025 7:34 PM CDT documented as of this encounter Care Teams Manager Retirement Relationship Specialty Start Date End Date Omar Carmona MD [address] [place] [address] [phone] PCP - General Family Medicine 07/14/24 Barry Kilpatrick MD [address] [place] [address] [id number] [place], [place] 770965 Neurology 07/19/14 Michelle Henderson RN Nurse Coordinator Neurology 07/19/14 Rio Jaquez MD [address] [place] [address] [phone] Family Practice 10/15/14 Jemima Jaramillo MD [address] [place] [address] 81782 customer service sales consultant 11/20/14 Kelley Chin, TANIA [address] 548105 Nurse Coordinator Cardiology 11/04/15 Sydnee Saleem MD [address] [place] [address] 508 [place], [place] 551415 Cardiology 11/04/15 Karlene Moya MD [address] [place] [address] 136055 Ophthalmology 06/24/17 Wilbert Quintero, OD [address] [place] [address] 61138 Optometry 06/24/17 Rod Gauthier DPM [address] [place] [address] 60610 Alignment Technician Primary Podiatric Medicine 06/21/18 Jan Mahmood MD [address] [place] [address] Gastroenterology 11/05/20 Brandt Quintana MD [address] [place] [address] 8[address]40 Resident 11/05/20 Jan Mahmood MD [address] [place] [address] 20885 Assigned Gastroenterology Provider 12/01/20 Dom Eason MD [address] [place] [address] 7[address] Internal Medicine 12/02/20 Jaimie Vernon, TANIA Specialty Manager Strategy Cardiology 10/28/21 Marquise Hanley MD [address] [place] [address] 93857 Endocrinology, Diabetes, and Metabolism 03/05/22 Vlad Ramey MD [address] [place] [address] 29702 Cardiovascular Disease 05/07/22 Joesph Crowe MD [address] [place] [address] 11210 Surgery 05/07/22 Michelle Padilla, RN Specialty Manager Strategy Cardiology 07/03/22 Marquise Hanley MD [address] [place] [address] 45261 Assigned Endocrinology Provider 08/15/22 Wagner Oliver MD [address] [place] [address] Critical Care 12/15/22 Joesph Crowe MD [address] [place] [address] 15677 Surgery 03/17/23 Adonay Haq MD [address] [place] [address]62 Internal Medicine 06/14/23 Ruth Riddle DPM, Podiatry/Foot and Ankle Surgery [address] [facility] [address] [place] [address] 23950 Assigned Musculoskeletal Provider 10/22/23 Jignesh Mathias MD [address] [place] [address] 60637 Gastroenterology 09/25/24 Omar Carmona MD [address] [place] [address] 53021 Assigned PCP 12/29/24 Jason Alvares MD [address] [place] [address] 70704 Assigned Neuroscience Provider 12/29/24 Jignesh Mathias MD [address] [place] [address] Assigned Surgical Provider 12/29/24 documented as of this encounter
--- OUTSIDE RECORDS SUMMARY | 2025-03-24 20:22 | XMS_ITS | Encounter Summary ---
Author Organization [place] Address [address] [place] [address] Care Team Providers Care Electrical High Tension Tester Name Role Phone Rio Jaquez MD Primary Care Provider + [phone] Barry Kilpatrick MD Unavailable Michelle Henderson RN Unavailable [phone] Rio Jaquez MD Unavailable +[phone] Jemima Jaramillo MD Unavailable Unavai Kelley Bautista RN Unavailable +[phone] Sydnee Saleem MD Unavailable +[phone] Karlene Moya MD Unavailable +[phone] Wilbert Quintero OD Unavailable +[phone] Rod GauthierM Unavailable +[phone] Nallely Hogue RN Unavailable Unavailable Larisa Vargas RN Unavailable Unavailable Rio Jaquez MD Unavailable +[phone] Ruth Yarbrough MD Unavailable +[phone] Francisco Lott MD Unavailable +[phone] Frida Grace MD Unavailable +[phone] Sydnee Saleem MD Unavailable +[phone] [...] MD Unavailable Wagner Oliver MD Unavailable Zeenat Laurachloe Hopper NP Unavailable +[phone] Thom Taveras MD Unavailable +[phone] Joesph Crowe MD Unavailable +[phone] Joesph Crowe MD Unavailable +[phone] Adonay Haq MD Unavailable [phone] [facility] MD Unavailable +[phone] Jason Alvares MD Unavailable Ruth Riddle DPM, Podiatry /Foot and Ankle Surgery Unavailable Omar Carmona MD Primary Care Provider [phone] Jignesh Mathias MD Unavailable Adonay Haq MD Unavailable +[phone] Omar bragg MD Unavailable [phone] Jason Alvares MD Unavailable Jignesh Mathias MD Unavailable Ayad Lopez PhD LP Unavailable +[phone] Gavi Nieto-C Unavailable +[phone] Reason for Visit * Reason Onset Date Comments MyChart Communication 08/23/2019 Encounter Details Date Type Department Care Team (Latest Contact Info) Description 08/23/2019 MyC Medical Advice [facility] [address] [phone] Rio Jaquez MD [address] [address] MyChart Communication Social History Tobacco Use Types Packs/Day Years Used Date Smoking Tobacco: Every Day Cigarettes 1 42.6 Started: 08/09/1982 Smokeless Tobacco: Never Alcohol Use Standard Drinks/Week Comments Yes 0 (1 standard drink = 0.6 oz pur e alcohol) occ Comments No Sex and Gender Information Value Date Recorded Sex Assigned at Female 09/12/2020 12:05 PM SHARED SERVICES REPRESENTATIVE Legal Sex Female 3:26 AM SHARED SERVICES REPRESENTATIVE Gender Identity Female 09/12/2020 12:05 PM SHARED SERVICES REPRESENTATIVE Sexual Orientation Straight 12/19/2021 10 :44 AM CDT Occupation Industry Job Start Date Job End Date on disability for FMS Not on file Not on file Not on file documented as of this encounter Miscellaneous Notes * Telephone Encounter - Michelle Sandoval - 08/23/2019 4:30 PM CST Replied to pt via Michelle Sandoval Rheumatologist on 08/23/2019 at 4:34 PM ED SERVICES REPRESENTATIVE documented in this encounter Plan of Treatment Upcoming Encounters Date Type Department Care Team (Late st Contact Info) Description 03/26/2025 11:00 AM CDT Therapy Visit [address] [phone] Jason Alvares MD [address] [address] Chaya Castillo, OTR [address] [address] 03/29/2025 10:30 AM CDT Therapy Visit [facility] [address] [facility] [address] [place] [phone] [place] [address] [facility] MICHAEL 300 [place], [place] 110647 04/02/2025 11:00 AM CDT Therapy Visit [address] [phone] Jason Alvares MD [address] [address] Chaya Castillo OTR [facility] 150 [facility] [address] 04/11/2025 12:30 PM CDT Office Visit [facility] [address] 4th [place] [phone] Omar Carmona MD [address] [place] [address] 04/12/2025 2:15 PM CDT [facility] 150 [place] [phone] Jason Alvares MD [address] [place] [address] Chaya Castillo OTR [facility] 150 [facility] [address] 04/16/2025 11:00 AM CDT Therapy [facility] 150 [place] [phone] aJson Alvares MD [address] [place] [address] Chaya Castillo OTR [facility] 150 [place] [address] 04/23/2025 11:00 AM CDT Therapy Visit [facility] 150 [place] [phone] Jason Alvares MD [address] [place] [address] [facility]illo, [facility] 150 [place] [address] 04/30/2025 11:00 AM CDT Therapy Visit [facility] 150 [place] [phone] Jason Alvares MD [address] [place] [address] 723605 Chaya Castillo, OTR [facility] 150 [place] [address] 05/15/2025 12:30 PM CDT Office Visit [address] [phone] Marquise Hanley MD [address] [place] [address] 06/08/2025 9:15 AM CDT Office Visit [facility] Hep[facility]ology [facility] [address] [phone] Jignesh Mathias MD [address] [place] [address] 11/05/2025 1:45 PM CDT Office Visit [facility] Dermatology Clinic [address] 3rd [place] [address] Gavi Nieto PA-C Dermatology [address] [place] [address] [phone] documented as of this encounter Goals Goal [...] Depression Total Score: 10 019 7:06 AM SHARED SERVICES REPRESENTATIVE documented as of this encounter Care Teams Electrical High Tension Tester Relationship Specialty Start Date End Date Rio Jaquez MD [address] [place] [address] [id number] PCP - General Family Practice 12/02/10 07/13/24 Omar Carmona MD [address] [place] [address] [phone] PCP - General Family Medicine 07/14/24 Barry Kilpatrick MD [address] [place] [address] [id number] [place], [place] 439625 Neurology 07/19/14 Michelle Henderson I, TANIA Nurse Coordinator Neurology 07/19/14 Rio Jaquez MD [address] [place] [address] [phone] MD Family Practice 10/15/14 Jemima Jaramillo MD demolition specialist 11/20/14 Kelley Chin, TANIA [address] [phone] Nurse Coordinator Cardiology 11/04/15 Sydnee Saleem MD [address] [place] [address] 508 [place] [address] Cardiology 11/04/15 Karlene Moya MD 6 [place], [place] 037115 Ophthalmology 06/24/17 Wilbert Quintero OD [address] [place] [address] 074235 Optometry 06/24/17 Rod Gauthier DPM [address] [place] [address] [phone] Back Digger Operator Primary Podiatric Medicine 06/21/18 Nallely Hogue, RN Registered Nurse 02/20/19 11/23/22 Larisa Vargas, TANIA Specialty Attendant [facility] 04/18/19 03/06/22 Rio Jaquez MD [address] [place] [address] [address] 4 [place], [place] 552935 Assigned PCP 12/28/19 11/16/20 Ruth Yarbrough MD 420 [facility] 101 [place], [place] 345245 Assigned Endocrinology Provider 05/31/20 09/28/20 Francisco Lott MD [address] [place] [address] [phone] Assigned Rheumatology Provider 05/31/20 12/13/21 [place] [address] [place] [address] [address] [place] [address] Assigned Pediatric Specialist Provider 05/31/20 09/08/20 Sydnee Saleem MD 6572 [facility] [address] [place] [address] [phone] Assigned Heart and Vascular Provider 05/31/20 10/22/20 Greg Ortega MD 909 [place] [address] Assigned Surgical Provider 06/23/20 12/06/21 Frida Grace MD 3305 [facility] [address] [place] [id number] Assigned Surgical Provider 05/31/20 06/22/20 Jan Mahmood MD 516 [facility] 2A [place], [place] 891415 Gastroenterology 11/05/20 Brandt Quintana MD 1414 [place] [address] Resident 11/05/20 Jan Mahmood MD 516 [facility] 2A [place] [address] Assigned Gastroenterology Provider 12/01/20 Rio Jaquez MD 909 [facility] 4 [place], [place] 602005 Assigned PCP 11/17/20 09/30/24 Dom Eason MD 717 [facility] 353 [place] [address] Internal Medicine 12/02/20 Jayla Plaza, RN Specialty Attendant [facility] 01/09/21 02/13/24 Jayla Plaza, RN Specialty Attendant [facility] 01/10/21 01/10/21 Sydnee Saleem MD 6550 [facility] [address] [place] [address] Assigned Heart and Vascular Provider 02/02/21 07/24/22 Phan Coello MD Assigned Neuroscience Provider 02/21/21 11/22/21 Cristian Barragan MD 2945 [place] [address] Assigned Infectious Disease Provider 02/21/21 03/06/22 Dom Eason MD 717 [facility] 353 [place], [place] 984394 Assigned Nephrology Provider 04/20/21 01/02/22 Jaimie Vernon, TANIA Specialty Attendant [facility] 10/28/21 Ruth Riddle DPM, Podiatry/Foot and Ankle Surgery [address] [facility] 300 [place], [place] 522527 Assigned Musculoskeletal Provider 11/30/21 09/30/23 Luis Arrington MD 909 [place] [address] Assigned Neuroscience Provider 11/23/21 01/02/22 Jason Alvares MD 420 [facility] 295 [place], [place] [phone] Assigned Neuroscience Provider 01/03/22 05/15/22 Marquise Hanley MD [address] [place] [address] Endocrinology, Diabetes, and Metabolism 03/05/22 Vlad Ramey MD [address] [place] [address] 36[address] Cardiovascular Disease 05/07/22 Joesph Crowe MD [address] [place] [address] [phone] Surgery 05/07/22 Luis Arrington MD [address] [place] [address] Assigned Neuroscience Provider 05/16/22 05/14/23 Michelle Padilla, TANIA Specialty Attendant [facility] 07/03/22 Vlad Ramey MD [address] [place] [address] Assigned Heart and Vascular Provider 07/25/22 05/28/23 Marquise Hanley MD [address] [place] [address] 03027 Assigned Endocrinology Provider 08/15/22 Dom Eason MD [address] [place] [address] 6[address] Assigned Nephrology Provider 11/28/22 02/19/23 Wagner Oliver MD [address] [place] [address] Critical Care 12/15/22 Laura Epperson NP 717 [facility] 1932 [place] [address] Assigned Nephrology Provider 02/20/23 08/30/24 Thom Taveras MD [facility] [address] [place] [address] Assigned Cancer Care Provider 02/06/23 08/20/23 oJesph Crowe MD [address] [place] [address]808 Surgery 03/17/23 Joesph Crwoe MD [address] [place] [address] 55[address] Assigned Surgical Provider 04/03/23 09/30/24 Adonay Haq MD [address] [place] [address] 18952 Internal Medicine 06/14/23OctoberDenilson MD [address] [facility] [address] [place] [address] Assigned Heart and Vascular Provider 05/29/23 11/28/24 Jason Alvares MD 420 [facility] 295 [place] [address] Assigned Neuroscience Provider 05/15/23 11/28/24 Ruth Riddle DPM, Podiatry/Foot and Ankle Surgery [address] RODRIGUEZ [address] [place] [address] Assigned Musculoskeletal Provider 10/22/23 Jignesh Mathias MD [address] [place] [address]709 Gastroenterology 09/25/24 Adonay Haq MD [address] [place] [address] 6[address] Assigned PCP 10/01/24 12/28/24 Omar Carmona MD [address] [place] [address] 9[address] Assigned PCP 12/29/24 Jason Alvares MD [address] [place] [address] Assigned Neuroscience Provider 12/29/24 Jignesh Mathias MD [address] [place] [address] 88424 Assigned Surgical Provider 12/29/24 Ayad Lopez, PhD LP [address] [place] [address] 354915 Assigned Behavioral Health Provider 02/28/25 Gavi Nieto, PA-C [address] [place] [address] 300285 Physician Research Pharmacist Dermatology 03/19/25 documented as of this encounter
--- OUTSIDE RECORDS SUMMARY | 2025-03-24 20:22 | XMS_ITS | Encounter Summary ---
Author Organization [facility] Address [address] [place] [address] Care Team Providers Care Rectangular Tank Cooper Name Role Phone Barry Kilpatrick MD Unavailable Michelle Henderson RN Unavailable [phone] Rio Jaquez MD Unavailable +[phone] Jemima Jaramillo MD Unavailable Unavai Kelley Bautista RN Unavailable [phone] Sydnee Saleem MD Unavailable [phone] Karlene Moya MD Unavailable [phone] Wilbert Qiuntero OD Unavailable [phone] Rod Gauthier DPM Unavailable +[phone] Jan Mahmood MD Unavailable [phone] Brandt Quintana MD Unavailable Jan Mahmood MD Unavailable [phone] Dom Eason MD Unavailable +[phone] Jaimie Vernon RN Unavailable Unavailable Marquise Hanley MD Unavailable +[phone] Vlad Ramey MD Unavailable +[phone] Joesph Crowe MD Unavailable [phone] Michelle Padilla RN Unavailable Unavaila ble Marquise Hanley MD Unavailable +[phone] Wagner Oliver MD Unavailable + [phone] Joesph Crowe MD Unavailable +[phone] Adonay Haq MD Unavailable [phone] Ruth RiddleM, Podiatry /Foot and Ankle Surgery Unavailable Omar Carmona MD Primary Care Provider [phone] Jignesh Mathias MD Unavailable Omar Carmona MD Unavailable [phone] Jason Alvares MD Unavailable Jignesh Mathias MD Unavailable Encounter Details Date Type Department Care Team (Latest Contact Info) Description 02/07/2025 Travel Social History Tobacco Use Types Packs/Day [...] than three times a week 08/27/2021 Attends Faith Services Not on file 08/27 Do you [...] Answer Date Recorded PHQ-2 Score 3 12/04/2024 [facility] - Occupational Stress Questionnaire Answer Date Recorded [...] in an abandoned building, in an overnight mcc, or couch-surfing.) Yes 07/12/2023 Are you worried [...] Sex Assigned at Female 09/12/2020 12:05 PM FOREIGN EXCHANGE POSITION CLERK Legal Sex Female 3:26 AM FOREIGN EXCHANGE POSITION CLERK Gender Identity Female 09/12/2020 12:05 PM FOREIGN EXCHANGE POSITION CLERK Sexual Orientation Straight 12/19/2021 10 :44 AM [...] Description 03/26/2025 11:00 AM CDT Therapy Visit [address] [phone] Jason Alvares MD [address] [place] [address] 507465 Chaya Castillo OTR [facility] [address] [address] 03/29/2025 10:30 AM CDT Therapy Visit [facility] [address] [facility] [address] [place] [phone] [place] [address] MICHAEL 300 [place], [place] [address]557 04/02/2025 11:00 AM CDT Therapy Visit [address] [phone] Jason Alvares MD [address] [phone] Castillo, Chaya A, OTR [facility] 150 [place] [address] 04/11/2025 12:30 PM CDT Office Visit [facility] Primary Care Clinic [address] 4th [place] [phone] Omar Carmona MD [address] [place] [address] 04/12/2025 2:15 PM CDT Therapy Visit [facility] [place] [phone] Jason Alvares MD [address] [place] [address] Chaya Castillo OTR [facility] 150 [facility] [place] [place] [address] 04/16/2025 11:00 AM CDT Therapy Visit [facility] [place] [phone] Jason Alvares MD [address] [place] [address] Chaya Castillo, OTR [facility] 150 [place] [address] 04/23/2025 11:00 AM CDT Therapy Visit [facility] 150 [place] [phone] Jason Alvares MD [address] [place] [address] Chaya Castillo OTR [facility] 150 [place] [address] 04/30/2025 11:00 AM CDT Therapy Visit [facility] Rehabilitation Services [facility] 150 [place] [address]110714 Jason Alvares MD 420 [facility] 295 [place] [address] Chaya Castillo, OTR [facility] 150 [place] [address] 05/15/2025 12:30 PM CDT Office Visit [address] [phone] Marquise Hanley MD [address] [place] [address] 86461 06/08/2025 9:15 AM CDT Office Visit [facility] Hepatology Clinic [address] [phone] Jignesh Mathias MD [address] [place] [address] 568045 11/05/2025 1:45 PM CDT Office Visit [facility] Dermatology Clinic [address] 3rd [place] [address] Gavi Nieto PA-C Dermatology [address] [place] [address] documented as of this encounter Goals Goal [...] documented as of this encounter Care Teams Rectangular Tank Cooper Relationship Specialty Start Date End Date Omar Carmona MD [address] [place] [address] 362455 PCP - General Family Medicine 07/14/24 Barry Kilpatrick MD [address] [place] [address] [id number] [place], [place] 486645 Neurology 07/19/14 Michelle Henderson I, TANIA Nurse Coordinator Neurology 07/19/14 Rio Jaquez MD [address] [place] [address] 079175 Family Practice 10/15/14 Jemima Jaramillo MD [address] [place] [address] 6[address] intermediate school teacher 11/20/14 Kelley Chin, TANIA [facility] 909 [place], [place] 677575 Nurse Coordinator Cardiology 11/04/15 Sydnee Saleem MD [address] [place] [address] 508 [place], [place] 575965 Cardiology 11/04/15 Karlene Moya MD 6 [place], [place] 053535 Ophthalmology 06/24/17 Wilbert Quintero, OD [address] [place] [address] [phone] Optometry 06/24/17 Rod Gauthier DPM [address] [place] [address] 15958 Yard Jacker Primary Podiatric Medicine 06/21/18 Jan Mahmood MD [address] [place] [address]16 Gastroenterology 11/05/20 Brandt Quintana MD [address] [place] [address] Resident 11/05/20 Jan Mahmood MD [address] [place] [address]876 Assigned Gastroenterology Provider 12/01/20 Dom Eason MD [address] [place] [address] Internal Medicine 12/02/20 Jaimie Vernon, RN Specialty Icu Tech Cardiology 10/28/21 Marquise Hanley MD [address] [place] [address]20 Endocrinology, Diabetes, and Metabolism 03/05/22 Vlad Ramey MD [address] [place] [address] 64994 Cardiovascular Disease 05/07/22 Joesph Crowe MD [address] [place] [address] 43252 Surgery 05/07/22 Michelle Padilla, RN Specialty Icu Tech Cardiology 07/03/22 Marquise Hanley MD [address] [place] [address] 85054 Assigned Endocrinology Provider 08/15/22 Wagner Oliver MD [address] [place] [address] Critical Care 12/15/22 Joesph Crowe MD [address] [place] [address] 65453 Surgery 03/17/23 Adonay Haq MD [address] [place] [address]32 Internal Medicine 06/14/23 Ruth Riddle DPVik, Podiatry/Foot and Ankle Surgery [address] [place] [address] Assigned Musculoskeletal Provider 10/22/23 Jignesh Mathias MD [address] [place] [address]27 Gastroenterology 09/25/24 Omar Carmona MD [address] [place] [address] 66381 Assigned PCP 12/29/24 Jason Alvares MD [address] [place] [address] 70741 Assigned Neuroscience Provider 12/29/24 Jignesh Mathias MD [address] [place] [address] 50426 Assigned Surgical Provider 12/29/24 documented as of this encounter
--- OUTSIDE RECORDS SUMMARY | 2025-03-24 20:22 | XMS_ITS | Encounter Summary ---
Author Organization [facility] Address [address] [place] [address] 16532 Care Team Providers Care Customer Assistance Representative Name Role Phone Barry Kilpatrick MD Unavailable Michelle Henderson RN Unavailable [phone] Rio Jaquez MD Unavailable +[phone] Jemima Jaramillo MD Unavailable Unavai Kelley Bautista RN Unavailable [phone] Sydnee Saleem MD Unavailable +[phone] Karlene Moya MD Unavailable +[phone] Wilbert Quintero OD Unavailable +[phone] Rod Gauthier DPM Unavailable Jan Mahmood MD Unavailable +[phone] Brandt Quintana MD Unavailable Jan Mahmood MD Unavailable +[phone] Dom Eason MD Unavailable +[phone] Jaimie Vernon RN Unavailable Unavailable Marquise Hanley MD Unavailable +[phone] Vlad Ramey MD Unavailable +[phone] Joesph Crowe MD Unavailable Michelle Padilla RN Unavailable Unavaila ble Marquise Hanley MD Unavailable +[phone] Wagner Oliver MD Unavailable + [phone] Joesph Crowe MD Unavailable +[phone] Adonay Haq MD Unavailable [phone] Ruth RiddleM, Podiatry /Foot and Ankle Surgery Unavailable Omar Carmona MD Primary Care Provider [phone] Jignesh Mathias MD Unavailable Omar Carmona MD Unavailable [phone] Jason Alvares MD Unavailable Jignesh Mathias MD Unavailable Encounter Details Date Type Department Care Team (Latest Contact Info) Description 02/26/2025 Travel Social History Tobacco Use Types Packs/Day [...] than three times a week 08/27/2021 Attends [employer] Services Not on file 08/27 Do you belong to any clubs o r organizations such as quaker groups, unions, fraternal or athletic groups, or [...] Answer Date Recorded PHQ-2 Score 3 12/04/2024 [facility] - Occupational Stress Questionnaire Answer Date Recorded [...] in an abandoned building, in an overnight [place] [facility] [place], or couch-surfing.) Yes 07/12/2023 Are you worried [...] Sex Assigned at Female 09/12/2020 12:05 PM ENTERPRISE INTEGRATION ARCHITECT Legal Sex Female 3:26 AM ENTERPRISE INTEGRATION ARCHITECT Gender Identity Female 09/12/2020 12:05 PM ENTERPRISE INTEGRATION ARCHITECT Sexual Orientation Straight 12/19/2021 10 :44 AM [...] Description 03/26/2025 11:00 AM CDT Therapy Visit [address] [phone] Jason Alvares MD [address] [place] [address] 108585 Chaya Castillo OTR [facility] [address] [address] 03/29/2025 10:30 AM CDT Therapy Visit [facility] [address] [facility] [address] [place] [phone] [place] [address] [place], [place] [address] 04/02/2025 11:00 AM CDT Therapy Visit [address] [phone] Jason Alvares MD [address] 966015 Castillo, Chaya A, OTR [facility] [address] [address] [place] [address] 04/11/2025 12:30 PM CDT Office Visit [facility] [address] 4th [place] [phone] Omar Carmona MD [address] [place] [address] 04/12/2025 2:15 PM CDT Therapy [facility] [place] [phone] Jason Alvares MD [address] [place] [address] Chaya Castillo OTR [facility] [place] [address] [facility] [place] [address] 04/16/2025 11:00 AM CDT Therapy [facility] [address] [facility] [place] [phone] Jason Alvares MD [address] [place] [address] Chaya Castillo, OTR [facility] [place] [address] [place] [address] 04/23/2025 11:00 AM CDT Therapy [facility] [address] [place] [phone] Jason Alvares MD [address] [place] [address] 76[address] Chaya Castillo OTR [facility] [place] [address] [place] [address] 04/30/2025 11:00 AM CDT Therapy Visit [facility] 150 [place] [address] Jason Alvares MD 420 [facility] 295 [place] [address] Chaya Castillo, OTR [facility] 150 [place] [address] 05/15/2025 12:30 PM CDT Office Visit [address] [phone] aMrquise Hanley MD [address] [place] [address] 06/08/2025 9:15 AM CDT Office Visit [facility] [address] [phone] Jignesh Mathias MD [address] [place] [address] 124685 11/05/2025 1:45 PM CDT Office Visit [facility] [address] 3rd [place] [address] Gavi Nieto PA-C Dermatology [address] [place] [address] 26232 documented as of this encounter Goals Goal [...] documented as of this encounter Care Teams Customer Assistance Representative Relationship Specialty Start Date End Date Omar Carmona MD [address] [place] [address] [id number] PCP - General Family Medicine 07/14/24 Barry Kilpatrick MD [address] [place] [address] [id number] [place], [place] 118285 Neurology 07/19/14 Michelle Henderson I, TANIA Nurse Coordinator Neurology 07/19/14 Rio Jaquez MD [address] [place] [address] 451205 Family Practice 10/15/14 Jeimma Jaramillo MD [address] [place] [address] 79969 special education case manager 11/20/14 Kelley Chin, TANIA [facility] 909 [place], [place] 954845 Nurse Coordinator Cardiology 11/04/15 Sydnee Saleem MD [address] [place] [address] 508 [place], [place] 664025 Cardiology 11/04/15 Karlene Moya MD 6 [place], [place] 993995 Ophthalmology 06/24/17 Wilbert Quintero, OD [address] [place] [address] [phone] Optometry 06/24/17 Rod Gauthier DPM [address] [place] [address] 66038 Neurodiagnostic Technician Primary Podiatric Medicine 06/21/18 Jan Mahmood MD [address] [place] [address] 99283 Gastroenterology 11/05/20 Brandt Quintana MD [address] [place] [address] 80627 Resident 11/05/20 Jan Mahmood MD [address] [place] [address] 00199 Assigned Gastroenterology Provider 12/01/20 Dom Eason MD [address] [place] [address]42 Internal Medicine 12/02/20 Jaimie Vernon, RN Specialty Drier And Grinder Tender Cardiology 10/28/21 Marquise Hanley MD [address] [place] [address] 03373 Endocrinology, Diabetes, and Metabolism 03/05/22 Vlad Ramey MD [address] [place] [address] 87369 Cardiovascular Disease 05/07/22 Joesph Crowe MD [address] [place] [address] 13935 Surgery 05/07/22 Michelle Padilla, RN Specialty Drier And Grinder Tender Cardiology 07/03/22 Marquise Hanley MD [address] [place] [address] 17299 Assigned Endocrinology Provider 08/15/22 Wagner Oliver MD [address] [place] [address] Critical Care 12/15/22 Joesph Crowe MD [address] [place] [address] 57518 Surgery 03/17/23 Adonay Haq MD [address] [place] [address] 00455 Internal Medicine 06/14/23 Ruth Riddle DPVik, Podiatry/Foot and Ankle Surgery [address] [place] [address] Assigned Musculoskeletal Provider 10/22/23 Jignesh Mathias MD [address] [place] [address] 78546 Gastroenterology 09/25/24 Omar Carmona MD [address] [place] [address] 39177 Assigned PCP 12/29/24 Jason Alvares MD [address] [place] [address] 08812 Assigned Neuroscience Provider 12/29/24 Jignesh Mathias MD [address] [place] [address] 36200 Assigned Surgical Provider 12/29/24 documented as of this encounter
--- OUTSIDE RECORDS SUMMARY | 2025-03-24 20:22 | XMS_ITS | Encounter Summary ---
Author Organization [facility] Address [address] [place] [address] 37933 Care Team Providers Care Equipment Operator Intermodal Yard Name Role Phone Rio Jaquez MD Primary Care Provider + [phone] Barry Kilpatrick MD Unavailable Michelle Henderson RN Unavailable Rio Jaquez MD Unavailable [phone] Jemima Jaramillo MD Unavailable Unavai Kelley Bautista RN Unavailable [phone] Sydnee Saleem MD Unavailable [phone] Karlene Moya MD Unavailable [phone] Wilbert Quintero OD Unavailable +[phone] Rod GauthierM Unavailable +[phone] Nallely Hogue RN Unavailable Unavailable Larisa Vargas RN Unavailable Unavailable Rio Jaquez MD Unavailable +[phone] Ruth Yarbrough MD Unavailable [phone] Francisco Lott MD Unavailable +[phone] Frida Grace MD Unavailable +[phone] Sydnee Saleem MD Unavailable [phone] Joesph Crowe MD Unavailable +[phone] Luis Arrington MD Unavailable Michelle Padilla RN Unavailable Unavaila Vlad Rodriguez MD Unavailable Marquise Hanley MD Unavailable Dom Eason MD Unavailable Wagner Oliver MD Unavailable Zeenat Laurachloe Hopper NP Unavailable [phone] Thom Taveras MD Unavailable +[phone] Joesph Crowe MD Unavailable +[phone] Joesph Crowe MD Unavailable +[phone] Adonay Haq MD Unavailable [phone] [facility]igh[facility]il[facility] MD Unavailable +[phone] Jason Alvares MD Unavailable Ruth Riddle DPM, Podiatry /Foot and Ankle Surgery Unavailable Omar Carmona MD Primary Care Provider [phone] Jignesh Mathias MD Unavailable Adonay Haq MD Unavailable [phone] Omar Carmona MD Unavailable [phone] Jason Alvares MD Unavailable Jignesh Mathias MD Unavailable Ayad Lopez PhD LP Unavailable +[phone] Gavi Nieto-Keisha Unavailable +[phone] Encounter Details Date Type Department Care Team (Late st Contact Info) Description 11/06/2019 [facility] [address] [place] [address] Rio Jaquez MD [address] [place] [address] Social History Tobacco Use Types Packs/Day Years Used Date Smoking Tobacco: Every Day Cigarettes 1 42.6 Started: 08/09/1982 Smokeless Tobacco: Never Alcohol Use Standard Drinks/Week Comments Yes 0 (1 standard drink = 0.6 oz pur e alcohol) occ Comments No Sex and Gender Information Value Date Recorded Sex Assigned at Female 09/12/2020 12:05 PM SOLE INKER Legal Sex Female 3:26 AM SOLE INKER Gender Identity Female 09/12/2020 12:05 PM SOLE INKER Sexual Orientation Straight 12/19/2021 10 :44 AM CDT Occupation Industry Job Start Date Job End Date on disability for FMS Not on file Not on file Not on file documented as of this encounter Plan of Treatment Upcoming Encounters Date Type Department Care Team (Late st Contact Info) Description 03/26/2025 11:00 AM CDT Therapy [facility] [address] [place] [address] Jason Alvares MD [address] [place] [address] 144555 Chaya Castillo OTR [facility] [address] [address] 03/29/2025 10:30 AM CDT Therapy Visit [facility] [address] [place] [phone] [place] [address] [place] [address] 04/02/2025 11:00 AM CDT Therapy Visit [facility] 150 [place] [phone] Jason Alvares MD [address] [place] [address] 445485 Chaya Castillo, [facility]TR [facility] 150 [place] [address] 04/11/2025 12:30 PM CDT Office Visit [facility] Primary [facility] [address] 4th [place] [address] Omar Carmona MD 909 [place] [address] 04/12/2025 2:15 PM CDT Therapy Visit [facility] [place] [facility] [place] [phone] Jason Alvares MD [address] [place] [address] 12463 Chaya Castillo OTR [facility] 150 [place] [address] 04/16/2025 11:00 AM CDT [facility] [address] [place] [phone] Jasno Alvares MD [address] [place] [address] Chaya Castillo [facility] 150 [place] [address] 04/23/2025 11:00 AM CDT Therapy [facility] 150 [place] [phone] Jason Alvares MD [address] [place] [address] Chaya Castillo OTR [facility] 150 [place] [address] 04/30/2025 11:00 AM CDT Therapy Visit [facility] 150 [place] [phone] Jason Alvares MD [address] [place] [address] Chaya Castillo, WESR [address] [address] 05/15/2025 12:30 PM CDT Office Visit [address] [phone] Marquise Hanley MD [address] [place] [address]131 06/08/2025 9:15 AM CDT Office Visit [facility] Hepatology Clinic [address] [phone] Jignesh Mathias MD [address] [place] [address] 458835 11/05/2025 1:45 PM CDT Office Visit [facility] Dermatology Clinic [address] 3rd [place] [address] Gavi Nieto PA-C Dermatology [address] [place] [address]147 documented as of this encounter Goals Goal [...] Depression Total Score: 10 019 7:06 AM SOLE INKER documented as of this encounter Care Teams Equipment Operator Intermodal Yard Relationship Specialty Start Date End Date Rio Jaquez MD [address] [place] [address] 4 [place], [place] 367705 PCP - General Family Practice 12/02/10 07/13/24 Omar Carmona MD [address] [place] [address] 810995 PCP - General Family Medicine 07/14/24 Barry Kilpatrick MD [address] [place] [address] [id number] [place], [place] 594685 Neurology 07/19/14 Michelle Henderson RN Nurse Coordinator Neurology 07/19/14 Rio Jaquez MD [address] [place] [address] 4 [place], [place] 039145 Family Practice 10/15/14 Jemima Jaramillo MD hotel associate 11/20/14 Kelley Chin, TANIA [address] 045555 Nurse Coordinator Cardiology 11/04/15 Sydnee Saleem MD 420 [facility] 508 [place], [place] 615135 Cardiology 11/04/15 Karlene Moya MD 6 [place], [place] 926385 Ophthalmology 06/24/17 Wilbert Quintero T, OD [address] [place] [address] 61756 Optometry 06/24/17 Rod Gauthier DPM [address] [place] [address] 78594 Associate Director Data & Analytics Primary Podiatric Medicine 06/21/18 Nallely Hogue, RN Registered Nurse 02/20/19 11/23/22 Larisa Vagras, TANIA Specialty Gold Marker Cardiology 04/18/19 03/06/22 Rio Jaquez MD [address] [place] [address] 320085 Assigned PCP 12/28/19 11/16/20 Ruth Yarbrough MD [address] [place] [address] 258215 Assigned Endocrinology Provider 05/31/20 09/28/20 Francisco Lott MD [address] [place] [address] 373315 Assigned Rheumatology Provider 05/31/20 12/13/21 Frida Grace MD [facility] [facility] [address] [place] [phone] Assigned Pediatric Specialist Provider 05/31/20 09/08/20 Sydnee Saleem MD [address] [facility] [address] [place] [address] 7[address]30 Assigned Heart and Vascular Provider 05/31/20 10/22/20 Greg Ortega MD [address] [place] [address] 479425 Assigned Surgical Provider 06/23/20 12/06/21 Frida Grace MD [address] [facility] [place] [address] [place] [address] Assigned Surgical Provider 05/31/20 06/22/20 Jan Mahmood MD [address] [place] [address] 2[address] [place] [address] Gastroenterology 11/05/20 Brandt Quintana MD [address] [place] [address] 19478 Resident 11/05/20 Jan Mahmood MD [address] [place] [address] 2A [place] [address] Assigned Gastroenterology Provider 12/01/20 Rio Jaquez MD 909 [facility] 4 [place], [place] 186505 Assigned PCP 11/17/20 09/30/24 Dom Eason MD [address] [place] [address] 353 [place] [address] Internal Medicine 12/02/20 Jayla Plaza, RN Specialty Gold Marker Hepatology 01/09/21 02/13/24 Jayla Plaza, RN Specialty Gold Marker Hepatology 01/10/21 01/10/21 Sydnee Saleem MD [address] [facility] [address] [place] [address] 7[address]30 Assigned Heart and Vascular Provider 02/02/21 07/24/22 Phan Coello MD Assigned Neuroscience Provider 02/21/21 11/22/21 Cristian Barragan MD [address]45 [place] [address] Assigned Infectious Disease Provider 02/21/21 03/06/22 Dom Eason MD [address] [place] [address] 14140 Assigned Nephrology Provider 04/20/21 01/02/22 Jaimie Vernon, TANIA Specialty Gold Marker Cardiology 10/28/21 Ruth Riddle, DPM, Podiatry/Foot and Ankle Surgery [address] [facility] 300 [place] [address] Assigned Musculoskeletal Provider 11/30/21 09/30/23 Luis Arrington MD [address] [place] [address] 60414 Assigned Neuroscience Provider 11/23/21 01/02/22 Jason Alvares MD [address] [place] [address] 295 [place] [address] Assigned Neuroscience Provider 01/03/22 05/15/22 Marquise Hanley MD [address] [place] [address] 94906 Endocrinology, Diabetes, and Metabolism 03/05/22 Vlad Ramey MD [address] [place] [address] 27051 Cardiovascular Disease 05/07/22 Joesph Crowe MD [address] [place] [address] 59407 Surgery 05/07/22 Luis Arrington MD [address] [place] [address] 72070 Assigned Neuroscience Provider 05/16/22 05/14/23 Michelle Padilla RN Specialty Gold Marker Cardiology 07/03/22 Vlad Ramey MD [address] [place] [address] 73143 Assigned Heart and Vascular Provider 07/25/22 05/28/23 Maruqise Hanley MD [address] [place] [address] 87224 Assigned Endocrinology Provider 08/15/22 Dom Eason MD [address] [place] [address] 353 [place] [address] Assigned Nephrology Provider 11/28/22 02/19/23 Wagner Oliver MD [address] [place] [address] Critical Care 12/15/22 Laura Epperson NP [address] [place] [address] 1932 [place] [address] Assigned Nephrology Provider 02/20/23 08/30/24 Thom Taveras MD [address] [facility], [address] [place] [address] Assigned Cancer Care Provider 02/06/23 08/20/23 Joesph Crowe MD [address] [place] [address] 10763 Surgery 03/17/23 Joesph Crowe MD [address] [place] [address] 02142 Assigned Surgical Provider 04/03/23 09/30/24 Adonay Haq MD [address] [place] [address] 66696 Internal Medicine 06/14/23OctoberDenilson MD [address] [facility] [address] [place] [address] Assigned Heart and Vascular Provider 05/29/23 11/28/24 Jason Alvares MD [address] [place] [address] 295 [place] [address] Assigned Neuroscience Provider 05/15/23 11/28/24 Ruth Riddle DPM, Podiatry/Foot and Ankle Surgery [address] [facility] 300 [place], [place] 208697 Assigned Musculoskeletal Provider 10/22/23 Jignesh Mathias MD [address] [place] [address] 16903 Gastroenterology 09/25/24 Adonay Haq MD [address] [place] [address] 533155 Assigned PCP 10/01/24 12/28/24 Omar Carmona MD [address] [place] [address] 975825 Assigned PCP 12/29/24 Jason Alvares MD [address] [place] [address] 494525 Assigned Neuroscience Provider 12/29/24 Jignesh Mathias MD [address] [place] [address] 326205 Assigned Surgical Provider 12/29/24 Ayad Lopez, PhD LP [address] [place] [address] 194745 Assigned Behavioral Health Provider 02/28/25 Gavi Nieto PA-C [address] [place] [address] [phone] Physician Commercial Construction Superintendent Dermatology 03/19/25 documented as of this encounter
--- OUTSIDE RECORDS SUMMARY | 2025-03-24 20:22 | XMS_ITS | Encounter Summary ---
Author Organization [place] Address [address] [place] [address] Care Team Providers Care Batch Mixer Name Role Phone Barry Kilpatrick MD Unavailable Michelle Henderson RN Unavailable [phone] Rio Jaquez MD Unavailable +[phone] Jemima Jaramillo MD Unavailable Unavai Kelley Bautista RN Unavailable [phone] Sydnee Saleem MD Unavailable +[phone] Karlene Moya MD Unavailable +[phone] Wilbert Quintero OD Unavailable +[phone] Rod Gauthier DPM Unavailable Jan Mahmood MD Unavailable +[phone] Brandt Quintana MD Unavailable [phone] Jan Mahmood MD Unavailable +[phone] Dom Eason MD Unavailable +[phone] Jaimie Vernon RN Unavailable Unavailable Marquise Hanley MD Unavailable +[phone] Vlad Ramey MD Unavailable +[phone] Joesph Crowe MD Unavailable +[phone] Michelle Padilla RN Unavailable Unavaila ble Marquise Hanley MD Unavailable +[phone] Wagner Oliver MD Unavailable +[phone] Joesph Crowe MD Unavailable Adonay Haq MD Unavailable +[phone] Ruth Riddle DPM, Podiatry /Foot and Ankle Surgery Unavailable Omar Carmona MD Primary Care Provider [phone] Jignesh Mathias MD Unavailable Omar Carmona MD Unavailable [phone] Jason Alvares MD Unavailable Jignesh Mathias MD Unavailable Ayad Lopez PhD LP Unavailable [phone] Encounter Details Date Type Department Care Team (Late st Contact Info) Description 03/08/2025 [facility] [address] [address] Jayla Plaza, RN Hepatic encephalopathy (H) Social History Tobacco Use Types Packs/Day [...] than three times a week 08/27/2021 Attends Congregational Services Not on file 08/27 Do you [...] Answer Date Recorded PHQ-2 Score 3 12/04/2024 [facility] [place] of Occupat ional Health - Occupational Stress [...] in an abandoned building, in an overnight penitentiary, or couch-surfing.) Yes 07/12/2023 Are you worried [...] Sex Assigned at Female 09/12/2020 12:05 PM 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 Legal Sex Female 3:26 AM 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 Gender Identity Female 09/12/2020 12:05 PM 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 Sexual Orientation Straight 12/19/2021 10 :44 AM [...] Description 03/26/2025 11:00 AM CDT Therapy Visit [address] [phone] Jason Alvares MD [address] [facility] [address] [place], [place] 2464[address] Chaya Castillo, LETA [address] [address] 03/29/2025 10:30 AM CDT [facility] [address] [place] [address] [place] [address] [place], [place] [phone] 04/02/2025 11:00 AM CDT [facility] [address] [place] [address] Jason Alvares MD [address] [place] [address] 806395 Chaya Castillo, OTR [facility] [address] [place] [address] 04/11/2025 12:30 PM CDT Office Visit [facility] [address] 4th [place] [phone] Omar Carmona MD [address] [place] [address] 04/12/2025 2:15 PM CDT Therapy [facility] 150 [place] [phone] Jason Alvares MD [address] [place] [address] 529315 Chaya Castillo, OTR [facility] 150 [facility] [place] [address] 04/16/2025 11:00 AM CDT Therapy Visit [facility] [place] [facility] [phone] Jason Alvares MD [address] [place] [address] Chaya Castillo, OTR [facility] 150 [facility] [place] [address] 04/23/2025 11:00 AM CDT Therapy [facility] 150 [place] [address] Jason Alvares MD [address] [place] [address] 198575 Chaya Castillo, OTR [facility] 150 [place] [address] 04/30/2025 11:00 AM CDT Therapy Visit [facility] 150 [place] [address] Jason Alvares MD [address] [place] [address] Chaya Castillo, OTR [address] [address] 05/15/2025 12:30 PM CDT Office Visit [address] [phone] Marquise Hanley MD [address] [place] [address] 668915 06/08/2025 9:15 AM CDT Office Visit [facility] [address] [phone] Jignesh Mathias MD [address] [place] [address] 11/05/2025 1:45 PM CDT Office Visit [facility] [address]rd [place] [address] Gavi Nieto PA-C Dermatology [address] [place] [address] documented as of this encounter Goals Goal Patient Goal Type Associated Problems Recent Progress Patient-Stated? Author Quit smoking / using tobacco Lifestyle No Rio Jaquez MD Note: 06/25/14 planned quit date documented as of this encounter Visit Diagnoses Diagnosis Hepatic encephalopathy (H) Hepatic encephalopathy documented in this encounter Additional Health Concerns Infection Onset Date Last Indicated Resolved Time MRSA Comment:Added from external infection. 10/23/2020 10/21/2020 Assessment Noted Time PHQ-9 Depression Total Score: 11 025 7:34 PM CDT documented as of this encounter Care Teams Batch Mixer Relationship Specialty Start Date End Date Omar Carmona MD [address] [place] [address] 638375 PCP - General Family Medicine 07/14/24 Barry Kilpatrick MD [address] [place] [address] [id number] [place], [place] 914895 Neurology 07/19/14 Michelle Henderson I, RN Nurse Coordinator Neurology 07/19/14 Rio Jaquez MD [address] [place] [address] Family Practice 10/15/14 Jemima Jaramillo MD [address] [place] [address]674 hourly caregiver 11/20/14 Kelley Chin, TANIA [address] 920405 Nurse Coordinator Cardiology 11/04/15 Sydnee Saleem MD [address] [place] [address] 508 [place] [address] Cardiology 11/04/15 Karlene Moya MD [address] [place] [address] Ophthalmology 06/24/17 Wilbert Quintero OD [address] [place] [address] Optometry 06/24/17 Rod Gauthier DPM [address] [place] [address] Olive Grader Primary Podiatric Medicine 06/21/18 Jan Mahmood MD [address] [place] [address] Gastroenterology 11/05/20 Brandt Quintana MD [address] [place] [address]27 Resident 11/05/20 Jan Mahmood MD [address] [place] [address] 42218 Assigned Gastroenterology Provider 12/01/20 Dom Eason MD [address] [place] [address] Internal Medicine 12/02/20 Jaimie Vernon, RN Specialty Roll Coating Machine Operator Cardiology 10/28/21 Marquise Hanley MD [address] [place] [address] 15180 Endocrinology, Diabetes, and Metabolism 03/05/22 Vlad Ramey MD [address] [place] [address] 11488 Cardiovascular Disease 05/07/22 Joesph Crowe MD [address] [place] [address] 29775 Surgery 05/07/22 Michelle Padilla, RN Specialty Roll Coating Machine Operator Cardiology 07/03/22 Marquise Hanley MD [address] [place] [address] 71958 Assigned Endocrinology Provider 08/15/22 Wagner Oliver MD [address] [place] [address] Critical Care 12/15/22 Joesph Crowe MD [address] [place] [address] 62798 Surgery 03/17/23 Adonay Haq MD [address] [place] [address] 75838 Internal Medicine 06/14/23 Ruth Riddle DPM, Podiatry/Foot and Ankle Surgery [address] [place], [place] [address]27 Assigned Musculoskeletal Provider 10/22/23 Jignesh Mathias MD [address] [place] [address] Gastroenterology 09/25/24 Omar Carmona MD [address] [place] [address] 413695 Assigned PCP 12/29/24 Jason Alvares MD [address] [place] [address] 295 [place], [place] 678495 Assigned Neuroscience Provider 12/29/24 Jignesh Mathias MD [address] [place] [address] Assigned Surgical Provider 12/29/24 Ayad Lopez, PhD LP [address] [place] [address] 177225 Assigned Behavioral Health Provider 02/28/25 documented as of this encounter
--- OUTSIDE RECORDS SUMMARY | 2025-03-24 20:23 | XMS_ITS | Encounter Summary ---
Author Organization [place] Address [address] [place] [address] Care Team Providers Care Client Manager Name Role Phone Rio Jaquez MD Primary Care Provider [phone] Barry Kilpatrick MD Unavailable Michelle Henderson RN Unavailable [phone] Rio Jaquez MD Unavailable +[phone] Jemima Jaramillo MD Unavailable Unavai Kelley Bautista RN Unavailable [phone] Sydnee Saleem MD Unavailable +[phone] Karlene Moya MD Unavailable +[phone] Wilbert Quintero OD Unavailable +[phone] Rod GauthierM Unavailable + [phone] Kerrie Verdin PA-C Unavailable Nallely Hogue RN Unavailable Unavailable Larisa Vargas RN Unavailable Unavailable Rio Jaquez MD Unavailable +[phone] Ruth Yarbrough MD Unavailable [phone] Francisco Lott MD Unavailable +[phone] Frida Grace MD Unavailable +[phone] Sydnee Saleem MD Unavailable [phone] Greg Ortega MD Unavailable [phone] Frida Grace MD Unavailable +[phone] Jan Mahmood MD Unavailable Brandt Quintana MD Unavailable Jan Mahmood MD Unavailable Rio Jaquez MD Unavailable +[phone] Dom Eason MD Unavailable Jayla Plaza RN Unavailable +[phone] Jayla Plaza RN Unavailable +[phone] Sydnee Saleem MD Unavailable [phone] Phan Coello MD Unavailable Unavailable Cristian Barragan MD Unavailable [phone] Dom Eason MD Unavailable Jaimie Vernon RN Unavailable Unavailable Ruth Riddle DPM, Podiatry /Foot and Ankle Surgery Unavailable Luis Arrington MD Unavailable [phone] Jason Alvares MD Unavailable Marquise Hanley MD Unavailable +[phone] Vlad Ramey MD Unavailable +[phone] Joesph Crowe MD Unavailable Luis Arrington MD Unavailable +[phone] Michelle Padilla RN Unavailable Unavaila Vlad Rodriguez MD Unavailable +[phone] Marquise Hanley MD Unavailable +[phone] Dom Eason MD Unavailable +[phone] Wagner Oliver MD Unavailable Laura Epperson NP Unavailable [phone] Thom Taveras MD Unavailable [phone] Joesph Crowe MD Unavailable +[phone] Joesph Crowe MD Unavailable [phone] Adonay Haq MD Unavailable +[phone] Denilson Srinivasan MD Unavailable +[phone] Jason Alvares MD Unavailable Ruht Riddle DPM, Podiatry /Foot and Ankle Surgery Unavailable Omar Carmona MD Primary Care Provider [phone] Jignesh Mathias MD Unavailable Adonay Haq MD Unavailable [phone] Omar Carmona MD Unavailable [phone] Jason Alvares MD Unavailable Jignesh Mathias MD Unavailable Ayad Lopez PhD LP Unavailable [phone] Gavi Nieto PA-C Unavailable [phone] Encounter Details Date Type Department Care Team (Late st Contact Info) Description 04/04/2019 MyC Medical Advice [facility] Surgical Weight Management [address] 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 Legal Sex Female 3:26 AM ADDING MACHINE MECHANIC Gender Identity Female 09/12/2020 12:05 PM ADDING MACHINE MECHANIC Sexual Orientation Straight 12/19/2021 10 :44 AM CDT Occupation Industry Job Start Date Job End Date on disability for FMS Not on file Not on file Not on file documented as of this encounter Plan of Treatment Upcoming Encounters Date Type Department Care Team (Late st Contact Info) Description 03/26/2025 11:00 AM CDT Therapy Visit [facility] 150 [place] [phone] Jason Alvares MD [address] [place] [address] 803815 Chaya Castillo OTR [address] [address] 03/29/2025 10:30 AM CDT Therapy Visit [facility] [place] [address] [place] [address] [place] [phone] [place] [address]HA[address] 300 [place] [address] 04/02/2025 11:00 AM CDT Therapy [facility] 150 [place] [phone] Jason Alvares MD [address] [place] [address] 588825 [facility] 150 [place] [address] 04/11/2025 12:30 PM CDT Office [facility] [address] 4th [place] [phone] Omar Carmona MD [address] [place] [address] 04/12/2025 2:15 PM CDT Therapy [facility] [address] [place] [phone] Jason Alvares MD [address] [place] [address] Chaya Castillo OTR [facility] 150 [place] [address] 04/16/2025 11:00 AM CDT Therapy [facility] [address] [place] [phone] Jason Alvares MD [address] [place] [address] Chaya Castillo OTR [facility] 150 [place] [address] 04/23/2025 11:00 AM CDT Therapy [facility] [address] [place] [address] Jason Alvares MD [address] [place] [address] Chaya Castillo OTR [facility] 150 [place] [address] 04/30/2025 11:00 AM CDT Therapy [facility] 150 [place] [phone] Jason Alvares MD 420 [facility] 295 [place], [place] 9[address]695 Chaya Castillo, OTR [address] [address] 05/15/2025 12:30 PM CDT Office Visit [address] [phone] Marquise Hanley MD [address] [place] [address] 349405 06/08/2025 9:15 AM CDT Office [facility] [address] [phone] Jignesh Mathias MD [address] [place] [address] 693225 11/05/2025 1:45 PM CDT Office [facility] D[facility] [address] 3rd [place] [address] Gavi Nieto PA-C Dermatology [address] [place] [address] [phone] documented as of this encounter Goals Goal [...] Depression Total Score: 10 019 7:06 AM ADDING MACHINE MECHANIC documented as of this encounter Care Teams Client Manager Relationship Specialty Start Date End Date Rio Jaquez MD [address] [place] [address]458 PCP - General Family Practice 12/02/10 07/13/24 Omar Carmona MD [address] [place] [address] 09417 PCP - General Family Medicine 07/14/24 Barry Kilpatrick MD [address] [place] [address] [id number] [place], [place] 607905 Neurology 07/19/14 Michelle Henderson RN Nurse Coordinator Neurology 07/19/14 Rio Jaquez MD [address] [place] [address] 490725 Family Practice 10/15/14 Jemima Jaramillo MD post acute care nurse 11/20/14 Kelley Chin, TANIA [address] 875025 Nurse Coordinator Cardiology 11/04/15 Sydnee Saleem MD 420 [facility] 508 [place], [place] 507165 Cardiology 11/04/15 Karlene Moya MD 6 [place], [place] 362985 Ophthalmology 06/24/17 Wilbert Quintero, OD [address] [place] [address]952 Optometry 06/24/17 Rod Gauthier DPM [address] [place] [address] 22517 Truck Loader Primary Podiatric Medicine 06/21/18 Kerrie Verdin PA-C [address] [place] [address] 15855 Physician Jewel Blocker And Sawyer Physician Jewel Blocker And Sawyer 06/21/1808/07 Nallely Hogue, RN Registered Nurse 02/20/19 11/23/22 Larisa Vargas, TANIA Specialty Press Helper Cardiology 04/18/19 03/06/22 Rio Jaquez MD [address] [place] [address] 43419 Assigned PCP 12/28/19 11/16/20 Ruth Yarbrough MD [address] [place] [address]36 Assigned Endocrinology Provider 05/31/20 09/28/20 Francisco Lott MD [address] [place] [address] 25303 Assigned Rheumatology Provider 05/31/20 12/13/21 Frida Grace MD [address] [place] [address] [place] [address] Assigned Pediatric Specialist Provider 05/31/20 09/08/20 Sydnee Saleem MD [address] [place] [address] [place], [place] [phone] Assigned Heart and Vascular Provider 05/31/20 10/22/20 Greg Ortega MD 9 [place] [address] Assigned Surgical Provider 06/23/20 12/06/21 Frida Grace MD [address] [place] [address] [address] [place] [address] Assigned Surgical Provider 05/31/20 06/22/20 Jan Mahmood MD [address] [place] [address] Gastroenterology 11/05/20 Brandt Quintana MD [address] [place] [address] Resident 11/05/20 Jan Mahmood MD [address] [place] [address] 09886 Assigned Gastroenterology Provider 12/01/20 Rio Jaquez MD [address] [place] [address] 93987 Assigned PCP 11/17/20 09/30/24 Dom Eason MD [address] [place] [address] 83207 Internal Medicine 12/02/20 Jayla Plaza, RN Specialty Press Helper Hepatology 01/09/21 02/13/24 Jayla Plaza, RN Specialty Press Helper Hepatology 01/10/21 01/10/21 Sydnee Saleem MD [address] [facility] [address] [place] [address] Assigned Heart and Vascular Provider 02/02/21 07/24/22 Phan Coello MD Assigned Neuroscience Provider 02/21/21 11/22/21 Cristian Barragan MD [address] [place], [place] [phone] Assigned Infectious Disease Provider 02/21/21 03/06/22 Dom Eason MD [address] [place] [address] 353 [place] [address] Assigned Nephrology Provider 04/20/21 01/02/22 Jaimie Vernon, TANIA Specialty Press Helper Cardiology 10/28/21 Ruth Riddle, DPM, Podiatry/Foot and Ankle Surgery [address] [facility] 300 [place], [place] 98464337 Assigned Musculoskeletal Provider 11/30/21 09/30/23 Luis Arrington MD [address]09 [place], [place] 064715 Assigned Neuroscience Provider 11/23/21 01/02/22 Jason Alvares MD 420 [facility] 295 [place], [place] 329885 Assigned Neuroscience Provider 01/03/22 05/15/22 Marquise Hanley MD [address] [place] [address] 86799 Endocrinology, Diabetes, and Metabolism 03/05/22 Vlad Ramey MD [address] [place] [address] 86922 Cardiovascular Disease 05/07/22 Joesph Crowe MD [address] [place] [address] 69574 Surgery 05/07/22 Luis Arrington MD [address] [place] [address] 26545 Assigned Neuroscience Provider 05/16/22 05/14/23 Michelle Padilla RN Specialty Press Helper Cardiology 07/03/22 Vlad Ramey MD [address] [place] [address] 83170 Assigned Heart and Vascular Provider 07/25/22 05/28/23 Marquise Hanley MD [address] [place] [address] 84368 Assigned Endocrinology Provider 08/15/22 Dom Eason MD [address] [place] [address] Assigned Nephrology Provider 11/28/22 02/19/23 Wagner Oliver MD [address] [place] [address] Critical Care 12/15/22 Laura Epperson NP 717 [facility] [address] [place] [address] Assigned Nephrology Provider 02/20/23 08/30/24 Thom Taveras MD [address] [place] [address] Assigned Cancer Care Provider 02/06/23 08/20/23 Joesph Crowe MD [address] [place] [address] 29707 Surgery 03/17/23 Joesph Crowe MD [address] [place] [address] 72540 Assigned Surgical Provider 04/03/23 09/30/24 Adonay Haq MD 9 [place], [place] 857795 Internal Medicine 06/14/23OctoberDenilson MD 6405 [facility] [place] Black [facility] [address] [place] [address] Assigned Heart and Vascular Provider 05/29/23 11/28/24 Jason Alvares MD 420 [facility] 295 [place], [place] 745275 Assigned Neuroscience Provider 05/15/23 11/28/24 Ruth Riddle DPM, Podiatry/Foot and Ankle Surgery [address] [place] [address] Assigned Musculoskeletal Provider 10/22/23 Jignesh Mathias MD [address] [place] [address] [phone] Gastroenterology 09/25/24 Adonay Haq MD [address] [place] [address] 590065 Assigned PCP 10/01/24 12/28/24 Omar Carmona MD [address] [place] [address] [phone] Assigned PCP 12/29/24 Jason Alvares MD [address] [place] [address] 55455 Assigned Neuroscience Provider 12/29/24 Jignesh Mathias MD [address] [place] [address] 022525 Assigned Surgical Provider 12/29/24 Ayad Lopez, PhD LP [address] [place] [address] 396805 Assigned Behavioral Health Provider 02/28/25 Gavi Nieto PA-C [address] [place] [address] 311855 Physician [employer] Sawyer Dermatology 03/19/25 documented as of this encounter
--- OUTSIDE RECORDS SUMMARY | 2025-03-24 20:23 | XMS_ITS | Encounter Summary ---
Author Organization [facility] Address [address] [place] [address] Care Team Providers Care Hand Flesher Name Role Phone Barry Kilpatrick MD Unavailable Michelle Henderson RN Unavailable [phone] Rio Jaquez MD Unavailable +[phone] Jemima Jaramillo MD Unavailable Unavai Kelley Bautista RN Unavailable +[phone] Sydnee Saleem MD Unavailable +[phone] Karlene Moya MD Unavailable +[phone] Wilbert Quintero OD Unavailable +[phone] Rod Gauthier DPM Unavailable Jan Mahmood MD Unavailable +[phone] Brandt Quintana MD Unavailable Jan Mahmood MD Unavailable +[phone] Dom Eason MD Unavailable +[phone] Jaimie Vernon RN Unavailable Unavailable Marquise Hanley MD Unavailable +[phone] Vlad Ramey MD Unavailable +[phone] Joesph Crowe MD Unavailable +[phone] Michelle Padilla RN Unavailable Unavaila ble Marquise Hanley MD Unavailable +[phone] Wagner Oliver MD Unavailable + [phone] Joesph Crowe MD Unavailable +[phone] Adonay Haq MD Unavailable [phone] Ruth RiddleM, Podiatry /Foot and Ankle Surgery Unavailable Omar Carmona MD Primary Care Provider [phone] Jignesh Mathias MD Unavailable Omar Carmona MD Unavailable +[phone] Jason Alvares MD Unavailable Jignesh Mathias MD Unavailable Encounter Details Date Type Department Care Team (Latest Contact Info) Description 02/16/2025 Travel Social History Tobacco Use Types Packs/Day [...] any clubs o r organizations such as religion groups, unions, fraternal or athletic groups, or [...] Answer Date Recorded PHQ-2 Score 3 12/04/2024 [facility] - Occupational Stress Questionnaire Answer Date [...] in an abandoned building, in an overnight long term, or couch-surfing.) Yes 07/12/2023 Are you worried [...] Sex Assigned at Female 09/12/2020 12:05 PM DOCTOR NATUROPATHIC Legal Sex Female 3:26 AM DOCTOR NATUROPATHIC Gender Identity Female 09/12/2020 12:05 PM DOCTOR NATUROPATHIC Sexual Orientation Straight 12/19/2021 10 :44 AM [...] Description 03/26/2025 11:00 AM CDT Therapy Visit [address] [phone] Jason Alvares MD [address] [place] [address] 183965 Chaya Castillo OTR [facility] [address] [address] 03/29/2025 10:30 AM CDT Therapy Visit [facility] [address] [facility] [address] [place] [phone] [place] [address] [place], [place] 4669[address] 04/02/2025 11:00 AM CDT Therapy Visit [address] [phone] Jason Alvares MD [address] [id number] Castillo, Chaya A, OTR [facility] [address] [place] [address] 04/11/2025 12:30 PM CDT Office Visit [facility] [address] 4th [place] [phone] Omar Carmona MD [address] [place] [address] 04/12/2025 2:15 PM CDT Therapy [facility] [place] [phone] Jason Alvares MD [address] [place] [address] Chaya Castillo OTR [facility] [place] [address] [facility] [place] [address] 04/16/2025 11:00 AM CDT Therapy [facility] [place] [phone] Jason Alvares MD [address] [place] [address] Chaya Castillo, OTR [facility] [address] [place] [address] 04/23/2025 11:00 AM CDT Therapy [facility] [address] [place] [phone] Jason Alvares MD [address] [place] [address] Chaya Castillo OTR [facility] [place] [address] [place] [address] 04/30/2025 11:00 AM CDT Therapy Visit [facility] Rehabilitation Services [facility] 150 [place] [address] Jason Alvares MD 420 [facility] 295 [place] [address] Chaya Castillo, OTR [facility] 150 [place] [address] 05/15/2025 12:30 PM CDT Office Visit [address] [phone] Marquise Hanley MD [address] [place] [address] 06/08/2025 9:15 AM CDT Office Visit [facility] Hepatology Clinic [address] [phone] Jignesh Mathias MD [address] [place] [address] 312955 11/05/2025 1:45 PM CDT Office Visit [facility] Dermatology Clinic [address] 3rd [place] [address] Gavi Nieto PA-C Dermatology [address] [place] [address] 11818 documented as of this encounter Goals Goal [...] documented as of this encounter Care Teams Hand Flesher Relationship Specialty Start Date End Date Omar Carmona MD [address] [place] [address] [phone] PCP - General Family Medicine 07/14/24 Barry Kilpatrick MD [address] [place] [address] [id number] [place], [place] [phone] Neurology 07/19/14 Michelle Henderson I, TANIA Nurse Coordinator Neurology 07/19/14 Rio Jaquez MD [address] [place] [address] 827665 Family Practice 10/15/14 Jemima Jaramillo MD [address] [place] [address] [address] [address] 11/20/14 Kelley Chin, [facility] [address] [place], [place] 172785 Nurse Coordinator Cardiology 11/04/15 Sydnee Saleem MD [address] [place] [address] 508 [place], [place] 610345 Cardiology 11/04/15 Karlene Moya MD 6 [place], [place] 125055 Ophthalmology 06/24/17 Wilbert Quintero, OD [address] [place] [address] [phone] Optometry 06/24/17 Rod Gauthier DPM [address] [place] [address] Programs Manager Primary Podiatric Medicine 06/21/18 Jan Mahmood MD [address] [place] [address] Gastroenterology 11/05/20 Brandt Quintana MD [address] [place] [address]20 Resident 11/05/20 Jan Mahmood MD [address] [place] [address] 87551 Assigned Gastroenterology Provider 12/01/20 Dom Eason MD [address] [place] [address]368 Internal Medicine 12/02/20 Jaimie Vernon, RN Specialty Counter Hop Cardiology 10/28/21 Marquise Hanley MD [address] [place] [address] Endocrinology, Diabetes, and Metabolism 03/05/22 Vlad Ramey MD [address] [place] [address] 51058 Cardiovascular Disease 05/07/22 Joesph Crowe MD [address] [place] [address] 57000 Surgery 05/07/22 Michelle Padilla, RN Specialty Counter Hop Cardiology 07/03/22 Marquise Hanley MD [address] [place] [address] 89950 Assigned Endocrinology Provider 08/15/22 Wagner Oliver MD [address] [place] [address] Critical Care 12/15/22 Joesph Crowe MD [address] [place] [address]30 Surgery 03/17/23 Adonay Haq MD [address] [place] [address] 36999 Internal Medicine 06/14/23 Ruth Riddle DPVik, Podiatry/Foot and Ankle Surgery [address] [place] [address] Assigned Musculoskeletal Provider 10/22/23 Jignesh Mathisa MD [address] [place] [address] 16784 Gastroenterology 09/25/24 Omar Carmona MD [address] [place] [address] 68088 Assigned PCP 12/29/24 Jason Alvares MD [address] [place] [address] 0[address] Assigned Neuroscience Provider 12/29/24 Jignesh Mathias MD [address] [place] [address] 81999 Assigned Surgical Provider 12/29/24 documented as of this encounter
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
--- OUTSIDE RECORDS SUMMARY | 2025-03-24 20:23 | XMS_ITS | Encounter Summary ---
Author Organization [facility] Address [address] [place] [address] 7[address]05 Care Team Providers Care Tilt Tray Driver Name Role Phone Barry Kilpatrick MD Unavailable Michelle Henderson RN Unavailable [phone] Rio Jaquez MD Unavailable +[phone] Jemima Jaramillo MD Unavailable Unavai Kelley Bautista RN Unavailable [phone] Sydnee Saleem MD Unavailable +[phone] Karlene Moya MD Unavailable +[phone] Wilbert Quintero OD Unavailable +[phone] Rod Gauthier DPM Unavailable Jan Mahmood MD Unavailable +[phone] Brandt Quintana MD Unavailable Jan Mahmood MD Unavailable +[phone] Dom Eason MD Unavailable +[phone] Jaimie Vernon RN Unavailable Unavailable Marquise Hanley MD Unavailable +[phone] Vlad Ramey MD Unavailable +[phone] Joepsh Crowe MD Unavailable Michelle Padilla RN Unavailable Unavaila ble Marquise Hanley MD Unavailable +[phone] Wagner Oliver MD Unavailable + [phone] Joesph Crowe MD Unavailable +[phone] Adonay Haq MD Unavailable [phone] Ruth Riddle DPM, Podiatry /Foot and Ankle Surgery Unavailable Omar Carmona MD Primary Care Provider [phone] Jignesh Mathias MD Unavailable Omar Carmona MD Unavailable +[phone] Jason Alvares MD Unavailable Jignesh Mathias MD Unavailable Ayad Lopez PhD LP Unavailable [phone] Encounter Details Date Type Department Care Team (Latest Contact Info) Description 03/05/2025 Travel Social History Tobacco Use Types Packs/Day [...] any clubs o r organizations such as druze groups, unions, fraternal or athletic groups, or [...] Answer Date Recorded PHQ-2 Score 3 12/04/2024 [facility] - Occupational Stress Questionnaire Answer Date [...] in an abandoned building, in an overnight long-term, or couch-surfing.) Yes 07/12/2023 Are you worried [...] Sex Assigned at Female 09/12/2020 12:05 PM SHEET METAL TECHNICIAN Legal Sex Female 3:26 AM SHEET METAL TECHNICIAN Gender Identity Female 09/12/2020 12:05 PM SHEET METAL TECHNICIAN Sexual Orientation Straight 12/19/2021 10 :44 [...] Description 03/26/2025 11:00 AM CDT Therapy Visit [address] [phone] Jason Alvares MD [address] [place] [address] 901265 Chaya Castillo OTR FV [address] [address] 03/29/2025 10:30 AM CDT Therapy Visit [facility] [address] [facility] [address] [place] [phone] [place] [address] [place], [place] 235727 04/02/2025 11:00 AM CDT Therapy Visit [address] [phone] Jason Alvares MD [address] [place] [address] [phone] Chaya Castillo OTR [facility] [place] [facility] [address] [place] [address] 04/11/2025 12:30 PM CDT Office Visit [facility] [address] 4th [place] [phone] Omar Carmona MD [address] [place] [address] 04/12/2025 2:15 PM CDT Therapy Visit [address] [phone] Jason Alvares MD [address] [place] [address] Chaya Castillo OTR [facility] [address] [place] [address] 04/16/2025 11:00 AM CDT Therapy Visit [facility] 150 [place] [phone] Jason Alvares MD [address] [place] [address] Chaya Castillo, OTR [facility] 150 [place] [address] 04/23/2025 11:00 AM CDT Therapy Visit [facility] 150 [place] [phone] Jason Alvares MD [address] [place] [address] 439205 Chaya Castillo OTR [facility] 150 [place] [address] 04/30/2025 11:00 AM CDT Therapy Visit [facility] 150 [place] [address]174[address] Jason Alvares MD 420 [facility] 295 [place] [address] Chaya Castillo, OTR [facility] 150 [place] [address] 05/15/2025 12:30 PM CDT Office Visit [address] [phone] Marquise Hanley MD [address] [place] [address] 06/08/2025 9:15 AM CDT Office Visit [facility] Hepatology Clinic [address] [address] Jignesh Mathias MD [address] [place] [address] 11/05/2025 1:45 PM CDT Office Visit [facility] Dermatology Clinic [address] 3rd [place] [phone] Gavi Nieto PA-C Dermatology [address] [place] [address] [phone] documented as of this encounter Goals Goal [...] documented as of this encounter Care Teams Tilt Tray Driver Relationship Specialty Start Date End Date Omar Carmona MD [address] [place] [address] [phone] PCP - General Family Medicine 07/14/24 Barry Kilpatrick MD [address] [place] [address] [id number] [place], [place] 264815 Neurology 07/19/14 Michelle Henderson RN Nurse Coordinator Neurology 07/19/14 Rio Jaquez MD [address] [place] [address] 69689 Family Practice 10/15/14 Jemima Jaramillo MD [address] [place] [address] 19194 tuyere fitter 11/20/14 Kelley Chin, TANIA [address] 058295 Nurse Coordinator Cardiology 11/04/15 Sydnee Saleem MD [address] [place] [address] 508 [place], [place] 478485 Cardiology 11/04/15 Karlene Moya MD [address] [place] [address] 515385 Ophthalmology 06/24/17 Wilbert Quintero, OD [address] [place] [address] 60848 Optometry 06/24/17 Rod Gauthier DPM [address] [place] [address] 27494 Presidential Support Specialist Primary Podiatric Medicine 06/21/18 Jan Mahmood MD [address] [place] [address] 701[address] Gastroenterology 11/05/20 Brandt Quintana MD [address] [place] [address] 8[address]35 Resident 11/05/20 Jan Mahmood MD [address] [place] [address] 39414 Assigned Gastroenterology Provider 12/01/20 Dom Eason MD [address] [place] [address] 91298 Internal Medicine 12/02/20 Jaimie Vernon, TANIA Specialty Metaphysicist Cardiology 10/28/21 Marquise Hanley MD [address] [place] [address] 63622 Endocrinology, Diabetes, and Metabolism 03/05/22 Vlad Ramey MD [address] [place] [address] 11884 Cardiovascular Disease 05/07/22 Joesph Crowe MD [address] [place] [address] 58423 Surgery 05/07/22 Michelle Padilla, RN Specialty Metaphysicist Cardiology 07/03/22 Marquise Hanley MD [address] [place] [address] 82533 Assigned Endocrinology Provider 08/15/22 Wagner Oliver MD [address] [place] [address] Critical Care 12/15/22 Joesph Crowe MD [address] [place] [address] 95917 Surgery 03/17/23 Adonay Haq MD [address] [place] [address] 90999 Internal Medicine 06/14/23 Ruth Riddle DPM, Podiatry/Foot and Ankle Surgery [address] [place] [address] Assigned Musculoskeletal Provider 10/22/23 Jignesh Mathias MD [address] [place] [address] 32107 Gastroenterology 09/25/24 Omar Carmona MD [address] [place] [address] 73403 Assigned PCP 12/29/24 Jason Alvares MD [address] 034585 Assigned Neuroscience Provider 12/29/24 Jignesh Mathias MD [address] [place] [address] [phone] Assigned Surgical Provider 12/29/24 Ayad Lopez, PhD LP 6 [place], [place] 746885 Assigned Behavioral Health Provider 02/28/25 documented as of this encounter
--- OUTSIDE RECORDS SUMMARY | 2025-03-24 20:23 | XMS_ITS | Encounter Summary ---
Author Organization [facility] Address [address] [place] [address] 86[address] Care Team Providers Care Vice President Mission Integration Name Role Phone Rio Jaquez MD Primary Care Provider Barry Kilpatrick MD Unavailable Michelle Henderson I RN Unavailable [phone] Rio Jaquez MD Unavailable [phone] Jemima Jaramillo MD Unavailable Unavai Kelley Bautista RN Unavailable [phone] Sydnee Saleem MD Unavailable [phone] Karlene Moya MD Unavailable [phone] Wilbert Quintero OD Unavailable +[phone] Rod Gauthier DPM Unavailable [phone] Jan Mahmood MD Unavailable [phone] Brandt Quintana MD Unavailable Jan Mahmood MD Unavailable +[phone] Rio Jaquez MD Unavailable +[phone] Dom Eason MD Unavailable + [phone] [place], Jaimie RN Unavailable Unavailable Marquise Hanley MD Unavailable +[phone] Vlad Ramey MD Unavailable +[phone] Joesph Crowe MD Unavailable + [phone] Michelle Padilla RN Unavailable Unavaila ble Marquise Hanley MD Unavailable +[phone] Wagner Oliver MD Unavailable +[phone] Laura Epperson NP Unavailable +[phone] Joesph Crowe MD Unavailable [phone] Joesph Crowe MD Unavailable + [phone] Adonay Haq MD Unavailable [phone] Denilson Srinivasan MD Unavailable + [phone] Jason Alvares MD Unavailable Ruth Riddle DPM, Podiatry /Foot and Ankle Surgery Unavailable Omar Carmona MD Primary Care Provider [phone] Jignesh Mathias MD Unavailable Adonay Haq MD Unavailable [phone] Omar Carmona MD Unavailable [phone] Jason Alvares MD Unavailable Jignesh Mathias MD Unavailable Ayad Lopez PhD LP Unavailable [phone] Gavi Nieto PA-C Unavailable [phone] Encounter Details Date Type Department Care Team (Late st Contact Info) Description 03/30/2024 [facility] Preoperative Assessment [address] 5th [place] [address] Mickie Mora, RN Social History [...] than three times a week 08/27/2021 Attends [employer] Not on file 08/27 Do you belong to any clubs o r organizations such as orthodoxy groups, unions, fraternal or athletic groups, or [...] Answer Date Recorded PHQ-2 Score 2 02/28/2024 [facility] - Occupational [...] in an abandoned building, in an overnight snf, or couch-surfing.) Yes 07/12/2023 Are you worried [...] Sex Assigned at Female 09/12/2020 12:05 PM OPHTHALMIC TECH Legal Sex Female 3:26 AM OPHTHALMIC TECH Gender Identity Female 09/12/2020 12:05 PM OPHTHALMIC TECH Sexual Orientation Straight 12/19/2021 10 :44 AM [...] Description 03/26/2025 11:00 AM CDT Therapy Visit [address] [phone] Jason Alvares MD 420 [facility] 295 [place] [address] Chaya Castillo OTR [facility] [place] [facility] [address] [place] [address] 03/29/2025 10:30 AM CDT Therapy Visit [facility] Specialty Page [address] [place] [phone] [place] [address]EL [address] [place] [address] 04/02/2025 11:00 AM CDT Therapy Visit [facility] 150 [place] [phone] Jason Alvares MD [address] [place] [address] 365575 Chaya Castillo OTR [facility] 150 [place] [address] 04/11/2025 12:30 PM CDT Office Visit [facility] [address] 4th [place] [phone] Omar Carmona MD [address] [place] [address] 213405 04/12/2025 2:15 PM CDT Therapy Visit [facility] [address] [place] [phone] Jason Alvares MD [address] [place] [address] 246565 Chaya Castillo OTR [facility] 150 [place] [address] 04/16/2025 11:00 AM CDT Therapy Visit [facility] 150 [facility] [place] [address]14 Jason Alvares MD [address] [place] [address] Chaya Castillo OTR [facility] 150 [place] [address] 04/23/2025 11:00 AM CDT Therapy [facility] 150 [place] [address]27[address]14 Jason Alvares MD [address] [place] [address] Chaya Castillo [facility]TR [facility] 150 [place] [address] 04/30/2025 11:00 AM CDT Therapy [facility] 150 [place] [address]479[address] Jason Alvares MD [address] [place] [address] Chaya Castillo [facility] 150 [place] [address] 05/15/2025 12:30 PM CDT Office Visit [address] [address] Marquise Hanley MD [address] [place] [address] 925335 06/08/2025 9:15 AM CDT Office Visit [facility] Hepatology Clinic [address] [phone] Jignesh Mathias MD [address] [place] [address] 11/05/2025 1:45 PM CDT Office Visit [facility] Dermatology Clinic [address] 3rd [place] [address] Gavi Nieto PA-C Dermatology [address] [place] [address]35 documented as of this encounter Goals Goal [...] documented as of this encounter Care Teams Vice President Mission Integration Relationship Specialty Start Date End Date Rio Jaquez MD [address] [place] [address] 4 [place] [address] PCP - General Family Practice 12/02/10 07/13/24 Omar Carmona MD [address] [place] [address]17 PCP - General Family Medicine 07/14/24 Barry Kilpatrick MD [address] [place] [address] [id number] [place] [address] Neurology 07/19/14 Michelle Henderson I, RN Nurse Coordinator Neurology 07/19/14 Rio Jaquez MD [address] [address] Family Practice 10/15/14 Jemima Jaramillo MD bead cutter 11/20/14 Kelley Chin RN [address] 109145 Nurse Coordinator Cardiology 11/04/15 Sydnee Saleem MD [address] [place] [address] 508 [place] [address] Cardiology 11/04/15 Karlene Moya MD [address] [place] [address] 034225 Ophthalmology 06/24/17 Wilbert Quintero, OD [address] [place] [address] 293265 Optometry 06/24/17 Rod Gauthier DPM [address] [place] [address] 623105 Newspaper Photographer Primary Podiatric Medicine 06/21/18 Jan Mahmood MD [address] [place] [address] 2[address] [place], [place] 348975 Gastroenterology 11/05/20 Brandt Quintana MD [facility]4 [place] [address] Resident 11/05/20 Jan Mahmood MD [address] [facility] [address] [address] [place], [place] 516815 Assigned Gastroenterology Provider 12/01/20 Rio Jaquez MD [address] [place] [address] [address] [place], [place] 850175 Assigned PCP 11/17/20 09/30/24 Dom Eason MD 717 [facility] [address] [place], [place] 193944 Internal Medicine 12/02/20 Jaimie Vernon, RN Specialty Bookstore Manager Cardiology 10/28/21 Marquise Hanley MD [address] [place] [address] [phone] Endocrinology, Diabetes, and Metabolism 03/05/22 Vlad Ramey MD [address] [place] [address] 477195 Cardiovascular Disease 05/07/22 Joesph Crowe MD [address] [place] [address] [phone] Surgery 05/07/22 Michelle Padilla, RN Specialty Bookstore Manager Cardiology 07/03/22 Marquise Hanley MD [address] [place] [address] [phone] Assigned Endocrinology Provider 08/15/22 Wagner Oliver MD [address] [place] 457755 Critical Care 12/15/22 Laura Epperson NP 717 [facility] 1932 [place] [address] Assigned Nephrology Provider 02/20/23 08/30/24 Joesph Crowe MD [address] [place] [address] 63281 Surgery 03/17/23 Joesph Crowe MD [address] [place] [address] 02700 Assigned Surgical Provider 04/03/23 09/30/24 Adonay Haq MD [address] [place] [address]50 Internal Medicine 06/14/23OctoberDenilson MD [address] [facility] [address] [place] [address] Assigned Heart and Vascular Provider 05/29/23 11/28/24 Jason Alvares MD [address] [place] [address] 295 [place] [address] Assigned Neuroscience Provider 05/15/23 11/28/24 Ruth Riddle DPM, Podiatry/Foot and Ankle Surgery [address] [place] [address] Assigned Musculoskeletal Provider 10/22/23 Jignesh Mathias MD [address] [place] [address] 71263 Gastroenterology 09/25/24 Adonay Haq MD [address] [place] [address] [phone] Assigned PCP 10/01/24 12/28/24 Omar Carmona MD [address] [place] [address] [phone] Assigned PCP 12/29/24 Jason Alvares MD [address] [place] [address] 505405 Assigned Neuroscience Provider 12/29/24 Jignesh Mathias MD [address] [place] [address] 365245 Assigned Surgical Provider 12/29/24 Ayad Lopez, PhD LP [address] [place] [address] Assigned Behavioral Health Provider 02/28/25 Gavi Nieto PANavinC [address] [place] [address] 356995 Physician It Project Coordinator Dermatology 03/19/25 documented as of this encounter
--- OUTSIDE RECORDS SUMMARY | 2025-03-24 20:23 | XMS_ITS | Encounter Summary ---
Author Organization [facility] Address [address] [place] [address] Care Team Providers Care Social Welfare Clerk Name Role Phone Rio Jaquez MD Primary Care Provider Barry Kilpatrick MD Unavailable Michelle Henderson I RN Unavailable [phone] Rio Jaquez MD Unavailable [phone] Jemima Jaramillo MD Unavailable Unavai Kelley Bautista RN Unavailable [phone] Sydnee Saleem MD Unavailable +[phone] Karlene Moya MD Unavailable +[phone] Wilbert Quintero OD Unavailable +[phone] Rod Gauthier DPM Unavailable +[phone] Jan Mahmood MD Unavailable [phone] Brandt Quintana MD Unavailable +[phone] Jan Mahmood MD Unavailable +[phone] Rio Jaquez MD Unavailable +[phone] Dom Eason MD Unavailable + [phone] [place], Jaimie RN Unavailable Unavailable Marquise Hanley MD Unavailable +[phone] Vald Ramey MD Unavailable +[phone] Joesph Crowe MD Unavailable + [phone] Michelle Padilla RN Unavailable Unavaila ble Marquise Hanley MD Unavailable +[phone] Wagner Oliver MD Unavailable +[phone] Laura Epperson NP Unavailable +[phone] Joesph Crowe MD Unavailable +[phone] Joesph Crowe MD Unavailable + [phone] Adonay Haq MD Unavailable +[phone] Denilson Srinivasan MD Unavailable + [phone] Jason Alvares MD Unavailable Ruth RiddleM, Podiatry /Foot and Ankle Surgery Unavailable Omar Carmona MD Primary Care Provider [phone] Jignesh Mathias MD Unavailable Adonay Haq MD Unavailable [phone] Omar Carmona MD Unavailable +[phone] Jason Alvares MD Unavailable Jignesh Mathias MD Unavailable Ayad Lopez PhD LP Unavailable +[phone] Gavi Nieto PA-C Unavailable [phone] Encounter Details Date Type Department Care Team (Late st Contact Info) Description 04/03/2024 [facility] [address] [place] [address] Jemima Mederos, RN Social History Tobacco Use Types Packs/Day [...] than three times a week 08/27/2021 Attends [employer] Not on file 08/27 Do you belong to any clubs o r organizations such as holiness groups, unions, fraternal or athletic groups, or [...] Answer Date Recorded PHQ-2 Score 2 02/28/2024 [facility]ational Stress Questionnaire Answer [...] Sex Assigned at Female 09/12/2020 12:05 PM PERMIT TECHNICIAN Legal Sex Female 3:26 AM PERMIT TECHNICIAN Gender Identity Female 09/12/2020 12:05 PM PERMIT TECHNICIAN Sexual Orientation Straight 12/19/2021 10 :44 [...] Description 03/26/2025 11:00 AM CDT Therapy Visit [address] [phone] Jason Alvares MD 420 [facility] [address] [place] [address] Chaya Castillo OTR [facility] [address] [place] [address] 03/29/2025 10:30 AM CDT Therapy Visit [facility] [address] [place] [phone] [place] [address] [place] [address] 04/02/2025 11:00 AM CDT Therapy Visit [address] [phone] Jason Alvares MD [address] [place] [address] Chaya Castillo [facility]TR [facility] [address] [place] [address] 04/11/2025 12:30 PM CDT Office Visit [facility] [address] [phone] Omar Carmona MD [address] [place] [address] 436015 04/12/2025 2:15 PM CDT Therapy Visit [facility] [address] [place] [phone] Jason Alvares MD [address] [place] [address] [phone] Chaya Castillo OTR [facility] [address] [place] [address] 04/16/2025 11:00 AM CDT Therapy Visit [facility] [place] [address] [place] [address] Jason Alvares MD [address] [place] [address] Chaya Castillo OTR [facility] [place] [address] [place] [address] 04/23/2025 11:00 AM CDT Therapy [facility] [address] [facility] [place] [phone] Jason Alvares MD [address] [place] [address] Chaya Castillo OTR [facility] [facility] [address] [place] [address] 04/30/2025 11:00 AM CDT [facility] [address] [place] [phone] Jason Alvares MD [address] [place] [address] Chaya Castillo OTR [facility] 150 [place] [address] 05/15/2025 12:30 PM CDT Office Visit [address] [phone] Marquise Hanley MD [address] [place] [address] 06/08/2025 9:15 AM CDT Office Visit [facility] Hepatology [facility] [address] [phone] Jignesh Mathias MD 9 [place] [address] 11/05/2025 1:45 PM CDT Office Visit [facility]atology [facility] [place] [address] [facility] 3rd [place] [phone] Gavi Nieto PANavinC Dermatology [address] [place] [address] documented as of this encounter Goals Goal [...] Time PHQ-9 Depression Total Score: 8 02/27/20 24 9:31 AM CDT documented as of this encounter Care Teams Social Welfare Clerk Relationship Specialty Start Date End Date Rio Jaquez MD [address] [place] [address] 4 [place] [address] PCP - General Family Practice 12/02/10 07/13/24 Omar Carmona MD [address] [place] [address] PCP - General Family Medicine 07/14/24 Barry Kilpatrick MD [address] [place] [address] MW5685CK [place] [address] Neurology 07/19/14 Michelle Henderson I, RN Nurse Coordinator Neurology 07/19/14 Rio Jaquez MD [address] [facility] [address] 4 [place], [place] [phone] Family Practice 10/15/14 Jemima Jaramillo MD farm equipment operator 11/20/14 Kelley Chin RN [address] [phone] Nurse Coordinator Cardiology 11/04/15 Sydnee Saleem MD [address] [place] [address] 508 [place] [address] Cardiology 11/04/15 Karlene Moya MD [address] [place] [address] [phone] Ophthalmology 06/24/17 Wilbert Quintero OD [address] [place] [address] [phone] Optometry 06/24/17 Rod Gauthier DPM [address] [place] [address] 226855 Process Improvement Engineer Primary Podiatric Medicine 06/21/18 Jan Mahmood MD [address] [place], [place] [address] [address] [place], [place] 163675 Gastroenterology 11/05/20 Brandt Quintana MD [address] [place] [address] Resident 11/05/20 Jan Mahmood MD [address] [facility] [address] [place] [address] Assigned Gastroenterology Provider 12/01/20 Rio Jaquez MD [address] [facility] [address] 4 [place] [address] Assigned PCP 11/17/20 09/30/24 Dom Eason MD 7[address] [facility] [address] [place], [place] [phone] Internal Medicine 12/02/20 Jaimie Vernon, RN Specialty Food Inspector Cardiology 10/28/21 Marquise Hanley MD [address] [place] [address] [phone] Endocrinology, Diabetes, and Metabolism 03/05/22 Vlad Ramey MD [address] [place] [address] [phone] Cardiovascular Disease 05/07/22 Joesph Crowe MD [address] [place] [address] Surgery 05/07/22 Michelle Padilla RN Specialty Food Inspector Cardiology 07/03/22 Marquise Hanley MD [address] [place] [address] [phone] Assigned Endocrinology Provider 08/15/22 Wagner Oliver MD [address] [place] [address] Critical Care 12/15/22 Laura Epperson NP 717 [facility] [address] [place] [address] Assigned Nephrology Provider 02/20/23 08/30/24 Joesph Crowe MD [address] [place] [address] 265[address] Surgery 03/17/23 Joesph Crowe MD [address] [place] [address] Assigned Surgical Provider 04/03/23 09/30/24 Adonay Haq MD [address] [place] [address] Internal Medicine 06/14/23OctoberDenilson MD [address] [facility] [address] [place], [place] 826785 Assigned Heart and Vascular Provider 05/29/23 11/28/24 Jason Alvares MD [address] [place] [address] 295 [place] [address] Assigned Neuroscience Provider 05/15/23 11/28/24 Ruth Riddle DPM, Podiatry/Foot and Ankle Surgery [address] [place] [address] Assigned Musculoskeletal Provider 10/22/23 Jignesh Mathias MD [address] [place] [address] [phone] Gastroenterology 09/25/24 Adonay Haq MD [address] [place] [address] Assigned PCP 10/01/24 12/28/24 Omar Carmona MD [address] [place] [address] 959285 Assigned PCP 12/29/24 Jason Alvares MD [address] [place] [address] Assigned Neuroscience Provider 12/29/24 Jignesh Mathias MD [address] [place] [address] Assigned Surgical Provider 12/29/24 Ayad Lopez, PhD LP [address] [place] [address] Assigned Behavioral Health Provider 02/28/25 Gavi Nieto PA-C [address] [place] [address] [phone] Physician Co Chairman Dermatology 03/19/25 documented as of this encounter
--- OUTSIDE RECORDS SUMMARY | 2025-03-24 20:23 | XMS_ITS | Clinical Summary ---
Author Organization [employer] [facility] Address [address] [place] [address] Care Team Providers Care Network Programmer Name Role Phone Pcp, No Primary Care Provider Unavailabl e Allergies Active Allergy Reactions Criticality Noted Date Comments Atorvastatin Other - Describe In Comment Field Medium 09/12/2021 Elevated liver function myalgia fatigue Cephalexin Anaphylaxis,Hives,T hroat Swelling/Closing,Wh eezing High 11/29/2006 Codeine Hives 11/29/2006 Duloxetine *Unknown 08/10/2011 Liver cannot tolerate this medication Gabapentin 04/17/2010 Latex Rash 07/21/2016 Pertussis Vaccines *Unknown - Childhood Rxn 01/16/2010 Uirqjzo-Pqh-Bpk Reductase Inhibitors Nausea Only High 02/05/2022 Sulfa (Sulfonamide Antibiotics) Shortness Of Breath,Other - Describe In Comment Field Medium 11/29/2006 Medications cholecalciferol (VITAMIN D) 1,000 unit capsuleIndicati ons:Depression, major, recurrent, mild Take 2 capsules by mouth once daily. 0 06/08/2016 Active levothyroxine (SYNTHROID) 50 mcg tablet Take 50 mcg by mouth. 05/19/2016 Active folic acid 400 mcg tablet 1 Tablet once daily. 03/21/2021 Active pregabalin (LYRICA) 50 mg capsule 50 mg 2 times daily. 06/16/2021 Active rifAXIMin (XIFAXAN) 550 mg tablet Take 550 mg by mouth 2 times daily. 11/22/2020 Active levETIRAcetam (KEPPRA) 1,000 mg tablet 1,000 mg 2 times daily. 06/04/2021 Active magnesium oxide (MAG-OX 400) 400 mg tablet 1 Tablet two times daily. Once daily 05/17/2021 Active melatonin 3 mg tablet Take 3 mg by mouth at bedtime. 11/01/2020 Active omeprazole (PRILOSEC) 40 mg Delayed-Release capsule 40 mg once daily. 04/07/2021 Active nicotine (NICOTROL) 10 mg inhaler Had not started yet 12/24/2021 Active hydrOXYzine HCL (ATARAX) 25 mg tabletIndicatio ns:Generalized anxiety disorder TAKE 1 TO 2 TABLETS BY MOUTH EVERY 8 HOURS NEEDED 60 Tablet 2 08/19/2023 Active Active Problems Problem Noted Date Diagnosed Date Insomnia 05/19/2018 Controlled substance agreement signed 12/29/2016 Overview (12/29/2016): Signed: 09/27/13 Dr. Neto España MD / psychiatry Depression, major, recurrent, mild 09/16/2015 Controlled substance agreement signed 08/13/2015 Tobacco abuse 04/13/2014 Overview (04/13/2014): x 31 years. trying to quit. Generalized anxiety disorder 07/18/2012 Pain medication agreement 05/13/2011 Peripheral neuropathy 05/13/2011 Sarcoidosis 05/13/2011 CHRIS on CPAP 05/13/2011 Overview (07/18/2012): Does not use CPAP but is on oxygen at night Alcohol abuse, unspecified 02/20/2010 Hypertension 01/20/2010 Elevated TSH 10/08/2009 Uterine fibroid 09/11/2009 Overview (09/11/2009): ON 08/18 Ct scan Steatosis of liver 09/11/2009 Overview (09/11/2009): Noted on Abdominal CT 08/18 Other and Unspecified Ovarian Cyst- right 2.4 cm 08/29/2009 Headache, occipital 07/03/2009 Sleep disturbance, unspecified 07/10/2008 MYALGIA AND MYOSITIS, since age 18 11/29/2007 Migraine, unspecified, witho ut mention of intractable migraine without mention of status migrainosus 11/29/2007 Esophageal reflux 11/29/2007 Resolved Problems Problem Noted Date Diagnosed Date Resolved Date Major depression, recurrent 07/18/2012 09/16/2015 Overview (08/17/2014): Tolerant to Klonopin 1mg BID PRN Pt states she has struggled with anxiety since childhood. She has chronic medical issues which have contributed depression and anxiety, which were dx in the last year in the context of her brother's hospitalization and . Pt was initiated on Klonopin 5 months ago by PC, PRN. She was given a prescription for Zyban, although she denies taking this. She has been amitriptyline for 15 years for sleep and peripheral neuropathy. It no longer works for sleep, but may help with pain. Higher doses caused respiratory issues in the context of hospitalization and acute medical issues. Pt struggled with fibromyalgia for years and has been on SSDI since 2008. She notes she decompensated over time, and feels the dx was likely sarcoidosis (possibly in addition to fibromyalgia). She was hospitalized for one week at [facility] in 2009 and then in inpt rehab for almost 3 months after developing neuropathy and ataxia. Her providers did not know what was happening she states, and she had been seen in several EDs seeking help up to that point. Pt's neuropathy improved with Lyrica. Pt was then dx with sarcoidosis in February 2011. 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 Pt also notes her memory has been bad since 2009. Smoker 05/13/2011 12/19/2014 Depression with anxiety 05/13/201107/09 Immunizations Immunization Administration Dates Next Due AMB INFLUENZA, IIV4 (AGE=>6M OS) MDV (Flu Clinic Only) 06/22/2019 Influenza RIV4 (Age 18+ Year s) PRESERV FREE 10/04/2020 Influenza, IIV3 (Age 6-35 mos) 06/14/2017 Influenza, IIV3 (Age >=3 years) 05/18/20 21,07/06/2016,06/18/2014,2012,06/13/2012,05/28/2011,07/07/2010 Influenza, IIV4 05/24/2020, 9,10/10/2018,2016 Influenza,CCIIV4 PRESERV FREE 06/22/2019 Pneumococcal Poly,23-Valent (Pneumovax) 05/28/2011 Td, Preservative Free (age > = 7 Years) 02/22/2020,01/16/2010 Tuberculin (PPD) 02/23/2011 Social History Tobacco Use Types Packs/Day Years Used Date Smoking Tobacco: Every Day Cigarettes 0.5 32 Smokeless Tobacco: Never Tobacco Cessation:Ready to Q uit: Not Asked; Counseling Given: Not Answered Alcohol Use Standard Drinks/Week Comments Not Currently 0 (1 standard drink = 0.6 oz pur e alcohol) quit PHQ-2 Answer Date Recorded PHQ-2 TOTAL SCORE 2 09/28/2023 Social Connections Answer Date Recorded Frequency of Communication with Friends and Fami ly Not on file 08/09/2021 Financial Resource Strain Answer Date R ecorded Difficulty of Paying Living Expenses Not on file 08/09/2021 Difficulty of Paying Living Expenses Not on file 08/09/2021 Comments No Sex and Gender Information Value Date Recorded Sex Assigned at Not on file Legal Sex Female 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 Gender Identity Not on file Sexual Orientation Not on file Occupation Industry Job Start Date Job End Date Disability Not on file Not on file Not on file Obstetrics History Para Term AB IAB SAB Ectopic Multiple Livin g Live Births 1 0 0 0 0 0 0 0 0 1 1 Date Outcome GA Total Labor Labor/2nd/3rd Weight Sex Type Anes PTL Arianne A1 A5 Name Clin 1992 M Living Last Filed Vital Signs Vital Sign Reading Time Taken Comments Blood Pressure 116/69 05/19/2022 1:09 PM CDT tow er Pulse 80 05/19/2022 1:09 PM CDT Temperature 37.1 C (98.7 F) 02/13/2016 7:18 PM CDT Respiratory Rate 18 03/24/2017 2:43 PM CDT Oxygen Saturation 96% 05/19/2022 1:09 PM CDT Inhaled Oxygen Concentration - - Weight 52.6 kg (116 lb) 05/19/2022 1:09 PM CDT Height 170.2 cm (5' 7) 06/08/2016 9:23 AM CDT Body Mass Index 18.17 06/08/2016 9:23 AM CDT Plan of Treatment Health Maintenance Due Date Last Done Comments HIV for age 15-65 1984 Hepatitis B series for 19+ ( 1 of 3 - 19+ 3-dose series) 1988 Pap test for age 21-65 1990 Pneumococcal series for age 50+ (2 of 2 - PCV) 05/28/2012 05/28/2011 Colonoscopy through age 75 2014 Mammogram for age 45-75 2014 Lipids for age 45-75 11/14/2014 11/14/2009, 09/02/19 10 BMI (ht and wt on same day) for age 18+ 06/08/2017 06/08/2016, 09/16/2015 Zoster (shingles) series for age 50+ (1 of 2) 2019 COVID-19 vaccine series (2023- season) 2024 06/27/2023, 05/24/2022, 12/24/2021, Additional history exists Depression screening for age 12+ 09/28/2024 09/28/2023, 08/19/2023, 06/20/2021, Additional history exists Influenza Vaccine (#1) 2025 , 10/04/2020, 05/24/2020, Additional history exists Tetanus booster 02/21/2030 02/22/2020, 01/16/2010 Hepatitis C screening for ag e 18-79 Completed 09/02/2009, 03/12/2008 Procedures Procedure Name Priority Date/Time Associated Diagnosis Comments LIPID PANEL Routine 11/14/2009 8:53 AM CDT Other and unspecified hyperlipidemia ANTI HCV Routine 09/02/2009 7:46 AM RESIDENTIAL FINISH CARPENTER Elevated Liver Enzymes from Last 3 Months or Most Recently Relevant to Health Maintenance Results * (ABNORMAL) LIPID PANEL (11/14/2009 8:53 AM CDT) CHOLESTEROL,TOTAL 199 110 - 199 mg/dL [facility] TRIGLYCERIDES 265(H) 40 - 149 mg/dL [facility] HDL CHOLESTEROL 39(L) >40 mg/dL ABBO TT [facility] CHOL/HDL RATIO 5.10(H) <4.51 ABBOT T [facility] LDL CHOLESTEROL 107 <131 mg/dL [facility] PATIENT STATUS Fasting [facility] Blood specimen (specimen) BLOOD SPECIMEN / Unknown 11/14/2009 8:53 AM CDT 11/14/2009 8:30 AM CDT us Lesley Mccall MD CHEMISTRY Final Result [facility] INTERNAL ZIP [id number] [place] [phone] * ANTI HCV (09/02/2009 7:46 AM RESIDENTIAL FINISH CARPENTER) ANTI HCV Non-reacti ve [facility] Blood specimen (specimen) BLOOD SPECIMEN / Unknown 09/02/2009 7:46 AM RESIDENTIAL FINISH CARPENTER 09/02/2009 7:36 AM RESIDENTIAL FINISH CARPENTER us Lesley Mccall MD SEND OUTS Final Result Performing Organization Address [facility] Co de Phone Number [facility] INTERNAL ZIP [phone] [place] [phone] from Last 3 Months or Most Recently Relevant to Health Maintenance Insurance MEDICARE PART B [place] ONLY MEDICARE [place] ONLY BLUE CROSS OF NON-[place]-ITS Advance Directives * Full Code (Latest Code Status on File) Date Activated Date Inactivated Comments 01/22/2010 1:00 AM 01/22/2010 7:45 AM Care Teams Network Programmer Relationship Specialty Start Date End Date Pcp, No . PCP - General 05/19/22
--- OUTSIDE RECORDS SUMMARY | 2025-03-24 20:23 | XMS_ITS | Encounter Summary ---
Author Organization [place] Address [address] [place] [address] Care Team Providers Care Physiatrist Name Role Phone Barry Kilpatrick MD Unavailable Michelle Henderson RN Unavailable [phone] Rio Jaquez MD Unavailable +[phone] Jemima Jaramillo MD Unavailable Unavai Kelley Bautista RN Unavailable +[phone] Sydnee Saleem MD Unavailable +[phone] Karlene Moya MD Unavailable +[phone] Wilbert Quintero OD Unavailable +[phone] Rod Gauthier DPM Unavailable +[phone] Jan Mahmood MD Unavailable +[phone] Brandt Quintana MD Unavailable Jan Mahmood MD Unavailable +[phone] Dom Eason MD Unavailable +[phone] Jaimie Vernon RN Unavailable Unavailable Marquise Hanley MD Unavailable +[phone] Vlad Ramey MD Unavailable +[phone] Joesph Crowe MD Unavailable +[phone] Michelle Padilla RN Unavailable Unavaila ble Marquise Hanley MD Unavailable +[phone] Wagner Oliver MD Unavailable [phone] Joesph Crowe MD Unavailable Adonay Haq MD Unavailable Ruth RiddleM, Podiatry /Foot and Ankle Surgery Unavailable Omar Carmona MD Primary Care Provider Jignesh Mathias MD Unavailable Omar Carmona MD Unavailable Jason Alvares MD Unavailable Jignesh Mathias MD Unavailable Encounter Details Date Type Department Care Team (Late st Contact Info) Description 02/20/2025 Abstract [facility] Neuropsychology [address] [address] [place]ad [place], [place] [address] Social History Tobacco Use Types Packs/Day Years [...] than three times a week 08/27/2021 Attends Synagogue Services Not on file 08/27 Do you belong to any clubs o r organizations such as congregational groups, unions, fraternal or athletic groups, or [...] Answer Date Recorded PHQ-2 Score 3 12/04/2024 [facility] [place] of Occupat ional Health - Occupational Stress [...] in an abandoned building, in an overnight assisted, or couch-surfing.) Yes 07/12/2023 Are you worried [...] Sex Assigned at Female 09/12/2020 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 Legal Sex Female 3:26 AM 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 Gender Identity Female 09/12/2020 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 Sexual Orientation Straight 12/19/2021 10 :44 AM CDT Occupation Industry Job Start Date Job End Date on disability for FMS Not on file Not on file Not on file disabled Not on file Not on file Not on file documented as of this encounter Progress Notes * Ayad Lopez, PhD LP - 02/20/2025 11:59 PM CDT Name: Carol Burrell : 1970 TERRAZAS: 02/20/2025 Staff: AZAEL Tech: DANIAL Age: 54 Sex: Female Hand: Right Educ: 13-15 Vision: 20/30 ?with correction / []without correction ORIENTATION Time -4 Place Personal info WAIS-IV WMI: ~95 Raw SSa Similarities 20 8 Block Design 24 7 Digit Span 26 10 RDS= 9 Arithmetic 12 8 Coding 43 7 HVLT-R Form 1 Trial 1 2 3 Total 5 8 11 24 Raw T Total Learning (1-3) 24 41 Delayed Recall 9 44 Percent Retention 82 40 Recognition Hits/FP 12/0 58 BVMT-R Form 1 Trial 1 2 3 Total 4 8 10 22 Raw T / %ile Total Learning (1-3) 22 48 Delayed Recall 8 46 Percent Retention 80 11th-16th Recognition Hits/FP 4/0 6th-10th TEDDY-O Raw T %ile Copy 26.0 <=1 Time to Copy 165 >16 WMS-IV Raw SS / %ile LM I 14 5 LM II 14 7 LM Recog. 26 >75 COWAT (FAS) Raw: 28 T: 36 Animals Raw: 14 T-score: 35 B[place]ON NAMING TEST Raw: 51 T: 40 COMPLEX IDEATIONAL MATERIAL Raw: 11/12 T: 42 TRAILS Raw Err T A 45?? 0 34 B 76?? 0 44 STROOP Raw T Word 74 37 Color 54 35 Color/Word 32 42 LUBNA Short Raw: 12 %ile: 72 (w/corrections) BDI-II Raw: 38 Interpretation: Severe CORIE Raw: 32 Interpretation: Severe DCT E-score: 15 ACS Word Choice Total Raw Score: 50 documented in this encounter Plan of Treatment Upcoming Encounters Date Type Department Care Team (Late st Contact Info) Description 03/26/2025 11:00 AM CDT Therapy Visit [address] [phone] Jason Alvares MD [address] [place] [address] [phone] Chaya Castillo OTR FV [address] [address] 03/29/2025 10:30 AM CDT Therapy Visit [facility] [address] [place] [phone] [place] [address] [place], [place] 5422[address] 04/02/2025 11:00 AM CDT Therapy Visit [address] [phone] Jason Alvares MD [address] [place] [address] 260375 Chaya Castillo OTR [facility] [place] [address] [place] [address] 04/11/2025 12:30 PM CDT Office Visit [facility] [address] 4th [place] [phone] Omar Carmona MD [address] [place] [address] 04/12/2025 2:15 PM CDT [facility] [address] [place] [phone] Jason Alvares MD [address] [place] [address] Chaya Castillo OTR [facility] [place] [address] [facility] [place] [address] 04/16/2025 11:00 AM CDT Therapy [facility] [address] [place] [phone] Jason Alvares MD [address] [place] [address] 205735 Chaya Castillo OTR [facility] [place] [address] [facility] [place] [place] [address] 04/23/2025 11:00 AM CDT Therapy [facility] [address] [facility] [place] [phone] Jason Alvares MD [address] [place] [address] Chaya Castillo OTR [facility] [place] [address] [place] [address] 04/30/2025 11:00 AM CDT Therapy Visit [facility] [address] [phone] Jason Alvares MD [address] [place] [address] 295 [place] [address] Chaya Castillo, OTR [address] [address] 05/15/2025 12:30 PM CDT Office Visit [address] [phone] Marquise Hanley MD [address] [place] [address] 06/08/2025 9:15 AM CDT Office Visit [facility] [address] [address] Jignesh Mathias MD [address] [place] [address] 11/05/2025 1:45 PM CDT Office Visit [facility] [address] [place] [address] Gavi Nieto PA-C Dermatology [address] [place] [address] documented as of this encounter Goals Goal [...] documented as of this encounter Care Teams Physiatrist Relationship Specialty Start Date End Date Omar Carmona MD [address] [place] [address] [phone] PCP - General Family Medicine 07/14/24 Barry Kilpatrick MD [address] [place] [address] [id number] [place], [place] [address] Neurology 07/19/14 Michelle Henderson RN Nurse Coordinator Neurology 07/19/14 Rio Jaquez MD [address] [place] [address] 064615 Family Practice 10/15/14 Jemima Jaramillo MD [address] [place] [address] 12731 tester sound 11/20/14 Kelley Chin, TANIA [address] [phone] Nurse Coordinator Cardiology 11/04/15 Sydnee Saleem MD [address] [place] [address] 508 [place], [place] 9775[address] Cardiology 11/04/15 Karlene Moya MD [address] [place] [address] [phone] Ophthalmology 06/24/17 Wilbert Quintero, OD [address] [place] [address] 969[address] Optometry 06/24/17 Rod Gauthier DPM [address] [place] [address] 0[address] [facility] Primary Podiatric Medicine 06/21/18 Jan Mahmood MD [address] [place] [address] Gastroenterology 11/05/20 Brandt Quintana MD [address] [place] [address] Resident 11/05/20 Jan Mahmood MD [address] [place] [address] Assigned Gastroenterology Provider 12/01/20 Dom Eason MD [address] [place] [address] 20717 Internal Medicine 12/02/20 Jaimie Vernon, TANIA Specialty Coiler Cardiology 10/28/21 Marquise Hanley MD [address] [place] [address] 15361 Endocrinology, Diabetes, and Metabolism 03/05/22 Vlad Ramey MD [address] [place] [address] 73545 Cardiovascular Disease 05/07/22 Joesph Crowe MD [address] [place] [address] 44763 Surgery 05/07/22 Michelle Padilla, RN Specialty Coiler Cardiology 07/03/22 Marquise Hanley MD [address] [place] [address] 24075 Assigned Endocrinology Provider 08/15/22 Wagner Oliver MD [address] [place] [address] Critical Care 12/15/22 Joesph Crowe MD [address] [place] [address] 65649 Surgery 03/17/23 Adonay Haq MD [address] [place] [address] 79[address] Internal Medicine 06/14/23 Ruth Riddle DPM, Podiatry/Foot and Ankle Surgery [address] [place] [address] 289117 Assigned Musculoskeletal Provider 10/22/23 Jignesh Mathias MD [address] [place] [address] 13989 Gastroenterology 09/25/24 Omar Carmona MD [address] [place] [address] 41447 Assigned PCP 12/29/24 Jason Alvares MD [address] [place] [address] 7[address] Assigned Neuroscience Provider 12/29/24 Jignesh Mathias MD [address] [place] [address] Assigned Surgical Provider 12/29/24 documented as of this encounter
--- OUTSIDE RECORDS SUMMARY | 2025-03-24 20:23 | XMS_ITS | Encounter Summary ---
Author Organization [place] Address [address] [place] [address] Care Team Providers Care Estimator Printing Name Role Phone Rio Jaquez MD Primary Care Provider Barry Kilpatrick MD Unavailable Michelle Henderson I RN Unavailable [phone] Rio Jaquez MD Unavailable +[phone] Jemima Jaramillo MD Unavailable Unavai Kelley Bautista RN Unavailable [phone] Sydnee Saleem MD Unavailable [phone] Karlene Moya MD Unavailable [phone] Wilbert Quintero OD Unavailable +[phone] Rod Gauthier DPM Unavailable [phone] Jan Mahmood MD Unavailable [phone] Brandt Quintana MD Unavailable +[phone] Jan Mahmood MD Unavailable +[phone] Rio Jaquez MD Unavailable +[phone] Dom Eason MD Unavailable + [phone] [place], Jaimie RN Unavailable Unavailable Marquise Hanley MD Unavailable +[phone] Vlad Ramey MD Unavailable +[phone] Joesph Crowe MD Unavailable + [phone] Michelle Padilla RN Unavailable Unavaila ble Marquise Hanley MD Unavailable +[phone] Wagner Oliver MD Unavailable +[phone] Laura Epperson NP Unavailable +[phone] Joesph Crowe MD Unavailable + [phone] Joesph Crowe MD Unavailable +[phone] Adonay Haq MD Unavailable [phone] OctoberDenilson MD Unavailable +[phone] Jason Alvares MD Unavailable Ruth Riddle DPM, Podiatry /Foot and Ankle Surgery Unavailable Omar Carmona MD Primary Care Provider [phone] Jignesh Mathias MD Unavailable Adonay Haq MD Unavailable [phone] Omar Carmona MD Unavailable [phone] Jason Alvares MD Unavailable Jignesh Mathias MD Unavailable Ayad Lopez PhD LP Unavailable [phone] Gavi Nieto PA-C Unavailable [phone] Encounter Details Date Type Department Care Team (Late st Contact Info) Description 05/12/2024 [facility] [address] [address] Vlad Ramey MD [address] [place] [address] Social History Tobacco Use Types Packs/Day [...] than three times a week 08/27/2021 Attends [employer] Services Not on file 08/27 Do you belong to any clubs o r organizations such as restoration groups, unions, fraternal or athletic groups, or [...] Answer Date Recorded PHQ-2 Score 2 02/28/2024 [facility]at ional Health - Occupational [...] Sex Assigned at Female 09/12/2020 12:05 PM THERAPIST SPEECH Legal Sex Female 3:26 AM THERAPIST SPEECH Gender Identity Female 09/12/2020 12:05 PM THERAPIST SPEECH Sexual Orientation Straight 12/19/2021 10 :44 AM [...] Description 03/26/2025 11:00 AM CDT Therapy Visit [address] [phone] Jason Alvares MD [address] [address] Chaya Castillo OTR [facility] 150 [place] [address] 03/29/2025 10:30 AM CDT Therapy Visit [facility] [place] [address] [place] [phone] [place] [address] [place] [address] 04/02/2025 11:00 AM CDT [facility] [address] [place] [phone] Jason Alvares MD [address] [place] [address] Chaya Castillo OTR [facility] 150 [place] [address] 04/11/2025 12:30 PM CDT Office Visit [facility] [address] 4th [place] [phone] Omar Carmona MD [address] [place] [address] 772705 04/12/2025 2:15 PM CDT [facility] [address] [place] [phone] Jason Alvares MD [address] [place] [address] Chaya Castillo OTR [facility] 150 [place] [address] 04/16/2025 11:00 AM CDT Therapy Visit [facility] [address] [place] [address] Jason Alvares MD [address] [address] Chaya Castillo OTR [facility] 150 [place] [address] 04/23/2025 11:00 AM CDT Therapy Visit [address] [address] Jason Alvares MD [address] [place] [address] Chaya Castillo [facility] 150 [place] [address] 04/30/2025 11:00 AM CDT Therapy Visit [address] [address] Jason Alvares MD [address] [place] [address] Chaya Castillo [facility]TR [facility] 150 [place] [address] 05/15/2025 12:30 PM CDT Office Visit [address] [address] Marquise Hanley MD [address] [place] [address] 06/08/2025 9:15 AM CDT Office Visit [facility] [address] [phone] Jignesh Mathias MD [address] [place] [address] 272275 11/05/2025 1:45 PM CDT Office Visit [facility] [address] 3rd [place] [address] Gavi Nieto PA-C Dermatology [address] [place] [address] [phone] documented as of this encounter Goals Goal [...] documented as of this encounter Care Teams Estimator Printing Relationship Specialty Start Date End Date Rio Jaquez MD [address] [place] [address] [address] [place] [address] PCP - General Family Practice 12/02/10 07/13/24 Omar Carmona MD [address] [place] [address] PCP - General Family Medicine 07/14/24 Barry Kilpatrick MD [address] [place] [address] [id number] [place] [address] Neurology 07/19/14 Michelle Henderson I, RN Nurse Coordinator Neurology 07/19/14 Rio Jaquez MD [address] [place] [address] 4 [place], [place] 465735 Family Practice 10/15/14 Jemima Jaramillo MD geophysical prospecting surveyor 11/20/14 Kelley Chin, TANIA [facility] [address] [place] [address] 109685 Nurse Coordinator Cardiology 11/04/15 Sydnee Saleem MD [address] [place] [address] 508 [place], [place] 200045 Cardiology 11/04/15 Karlene Moya MD [address] [place] [address] 322845 Ophthalmology 06/24/17 Wilbert Quintero, OD [address] [place] [address] 663415 Optometry 06/24/17 Rod Gauthier DPM [address] [place] [address] 142845 Residential Life Director Primary Podiatric Medicine 06/21/18 Jan Mahmood MD [address] [place] [address] [address] [place], [place] [phone] Gastroenterology 11/05/20 Brandt Quintana MD [address] [place] [address] Resident 11/05/20 Jan Mahmood MD [address] [facility] 2A [place], [place] 111735 Assigned Gastroenterology Provider 12/01/20 Rio Jaquez MD [address] [place] [address] [phone] Assigned PCP 11/17/20 09/30/24 Dom Eason MD [address] [place] [address] 353 [place] [address] Internal Medicine 12/02/20 Jaimie Vernon, TANIA Specialty Clerk Entry Level Cardiology 10/28/21 Marquise Hanley MD [address] [place] [address] 48601 Endocrinology, Diabetes, and Metabolism 03/05/22 Vlad Ramey MD [address] [place] [address] 63467 Cardiovascular Disease 05/07/22 Joesph Crowe MD [address] [place] [address] 18916 Surgery 05/07/22 Michelle Padilla, RN Specialty Clerk Entry Level Cardiology 07/03/22 Marquise Hanley MD [address] [place] [address] 8[address]74 Assigned Endocrinology Provider 08/15/22 Wagner Oliver MD [address] [place] [address] Critical Care 12/15/22 Laura Epperson, LULU 717 [facility] [address] [place] [address] Assigned Nephrology Provider 02/20/23 08/30/24 Joesph Crowe MD [address] [place] [address] 42764 Surgery 03/17/23 Joesph Crowe MD [address] [place] [address] 89164 Assigned Surgical Provider 04/03/23 09/30/24 Adonay Haq MD [address] [place] [address]874 Internal Medicine 06/14/23OctoberDenilson MD [address] [facility] [address] [place] [address] Assigned Heart and Vascular Provider 05/29/23 11/28/24 Jason Alvares MD [address] [place] [address] 295 [place] [address] Assigned Neuroscience Provider 05/15/23 11/28/24 Ruth Riddle DPM, Podiatry/Foot and Ankle Surgery [address] [place] [address] Assigned Musculoskeletal Provider 10/22/23 Jignesh Mathias MD [address] [place] [address] 723425 Gastroenterology 09/25/24 Adonay Haq MD [address] [place] [address] 786625 Assigned PCP 10/01/24 12/28/24 Omar Carmona MD [address] [place] [address] [phone] Assigned PCP 12/29/24 Jason Alvares MD [address] [place] [address] 603225 Assigned Neuroscience Provider 12/29/24 Jignesh Mathias MD [address] [place] [address] 067645 Assigned Surgical Provider 12/29/24 Ayad Lopez, PhD LP [address] [place] [address] 014525 Assigned Behavioral Health Provider 02/28/25 Gavi Nieto PA-C [address] [place] [address] 157495 Physician Radio Repairman Dermatology 03/19/25 documented as of this encounter
--- OUTSIDE RECORDS SUMMARY | 2025-03-24 20:23 | XMS_ITS | Encounter Summary ---
Author Organization [facility] Address [address] [place] [address]31 Care Team Providers Care Clinical Neuropsychologist Name Role Phone Rio Jaquez MD Primary Care Provider Barry Kilpatrick MD Unavailable Michelle Henderson I RN Unavailable [phone] Rio Jaquez MD Unavailable +[phone] Jemima Jaramillo MD Unavailable Unavai Kelley Bautista RN Unavailable +[phone] Sydnee Saleem MD Unavailable +[phone] Karlene Moya MD Unavailable +[phone] Wilbert Quintero OD Unavailable +[phone] Rod Gauthier DPM Unavailable +[phone] Jan Mahmood MD Unavailable +[phone] Brandt Quintana MD Unavailable +[phone] Jan Mahmood MD Unavailable +[phone] Rio Jaquez MD Unavailable +[phone] Dom Eason MD Unavailable + [phone] [place], Jaimie RN Unavailable Unavailable Marquise Hanley MD Unavailable +[phone] Vlad Ramey MD Unavailable +[phone] Joesph Crowe MD Unavailable + [phone] Michelle Padilla RN Unavailable Unavaila ble Marquise Hanley MD Unavailable +[phone] Wagner Oliver MD Unavailable +[phone] Laura Epperson NP Unavailable +[phone] Joesph Crowe MD Unavailable +[phone] Joesph Crowe MD Unavailable + [phone] Adonay Haq MD Unavailable [phone] Denilson Srinivasan MD Unavailable + [phone] Jason Alvares MD Unavailable Ruth RiddleM, Podiatry /Foot and Ankle Surgery Unavailable Omar Carmona MD Primary Care Provider [phone] Jignesh Mathias MD Unavailable Adonay Haq MD Unavailable [phone] Omar Carmona MD Unavailable +[phone] Jason Alvares MD Unavailable Jignesh Mathias MD Unavailable Ayad Lopez PhD LP Unavailable +[phone] Gavi Nieto PA-C Unavailable [phone] Encounter Details Date Type Department Care Team (Late st Contact Info) Description 05/23/2024 [facility] [address] [address] Georgina Don, RN Social History Tobacco Use Types Packs/Day [...] than three times a week 08/27/2021 Attends Nondenominational Services Not on file 08/27 Do you belong to any clubs o r organizations such as jewish groups, unions, fraternal or athletic groups, or [...] Answer Date Recorded PHQ-2 Score 2 02/28/2024 [facility] - Occupational [...] in an abandoned building, in an overnight correction, or couch-surfing.) Yes 07/12/2023 Are you worried [...] Sex Assigned at Female 09/12/2020 12:05 PM WALLET ASSEMBLER Legal Sex Female 3:26 AM WALLET ASSEMBLER Gender Identity Female 09/12/2020 12:05 PM WALLET ASSEMBLER Sexual Orientation Straight 12/19/2021 10 :44 AM [...] Description 03/26/2025 11:00 AM CDT Therapy Visit [address] [phone] Jason Alvares MD 420 [facility] 295 [place] [address] Chaya Castillo OTR F[facility] [place] [address] [place] [address] 03/29/2025 10:30 AM CDT Therapy Visit [facility] [address] [place] [phone] [place] [address] MICHAEL [address] [place], [place] 6054[address] 04/02/2025 11:00 AM CDT Therapy Visit [address] [phone] Jason Alvares MD [address] [place] [address] Chaya Castillo OTR FV [address] [address] 04/11/2025 12:30 PM CDT Office Visit [facility] [address] 4th [place] [phone] Omar Carmona MD [address] [place] [address] 027905 04/12/2025 2:15 PM CDT [facility] 150 [place] [phone] Jason Alvares MD [address] [place] [address] 748005 Chaya Castillo OTR [facility] 150 [place] [address] 04/16/2025 11:00 AM CDT [facility] [address] [place] [address] Jason Alvares MD [address] [place] [address] Chaya Castillo OTR [facility] [place] 150 [place] [address] 04/23/2025 11:00 AM CDT Therapy Visit [facility] [address] [place] [address] Jason Alvares MD [address] [place] [address] Chaya Castillo OTR [facility] 150 [place] [address] 04/30/2025 11:00 AM CDT Therapy [facility] 150 [place] [address] Jason Alvares MD [address] [place] [address] Chaya Castillo OTR [facility] 150 [place] [address] 05/15/2025 12:30 PM CDT Office Visit [address] [address] Marquise Hanley MD [address] [place] [address] 06/08/2025 9:15 AM CDT Office Visit [facility] Hepatology Clinic [address] [phone] Jignesh Mathias MD 909 [place] [address] 11/05/2025 1:45 PM CDT Office Visit [facility] D[facility]atology [facility] [place] 909 [facility] 3rd [place] [phone] Gavi Nieto PANavinC Dermatology [address] [place] [address] documented as of this encounter Goals Goal [...] documented as of this encounter Care Teams Clinical Neuropsychologist Relationship Specialty Start Date End Date Rio Jaquez MD [address] [place] [address] 4 [place] [address] PCP - General Family Practice 12/02/10 07/13/24 Omar Carmona MD [address] [place] [address] PCP - General Family Medicine 07/14/24 Barry Kilpatrick MD [address] [place] [address] [id number] [place] [address] Neurology 07/19/14 Michelle Henderson I, RN Nurse Coordinator Neurology 07/19/14 Rio Jaquez MD 9 [facility] 4 [place], [place] 119405 Family Practice 10/15/14 Jemima Jaramillo MD wool shearing supervisor 11/20/14 Kelley Chin, TANIA [address] 780265 Nurse Coordinator Cardiology 11/04/15 Sydnee Saleem MD [address] [place] [address] 508 [place], [place] 103195 Cardiology 11/04/15 Karlene Moya MD [address] [place] [address] 025325 Ophthalmology 06/24/17 Wilbert Quintero, OD [address] [place] [address] 118285 Optometry 06/24/17 Rod Gauthier DPM [address] [place] [address] 046115 Link And Link Knitting Machine Operator Primary Podiatric Medicine 06/21/18 Jan Mahmood MD [address] [place] [address] 2[address] [place], [place] 788995 Gastroenterology 11/05/20 Brandt Quintana MD [address] [place] [address] Resident 11/05/20 Jan Mahmood MD 516 [facility] P[facility] 2A [place] [address] Assigned Gastroenterology Provider 12/01/20 Rio Jaquez MD 909 [facility] 4 [place] [address] Assigned PCP 11/17/20 09/30/24 Dom Eason MD 717 [facility] MICHAEL [address] [place] [address] Internal Medicine 12/02/20 Jaimie Vernon, RN Specialty Bronzer Cardiology 10/28/21 Marquise Hanley MD [address] [place] [address] Endocrinology, Diabetes, and Metabolism 03/05/22 Vlad Ramey MD [address] [place] [address] 142115 Cardiovascular Disease 05/07/22 Joesph Crowe MD [address] [place] [address] Surgery 05/07/22 Michelle Padilla, TANIA Specialty Bronzer Cardiology 07/03/22 Marquise Hanley MD [address] [place] [address] Assigned Endocrinology Provider 08/15/22 Wagner Oliver MD [address] [place] [address] Critical Care 12/15/22 Laura Epperson NP 717 [facility] [address] [place] [address] Assigned Nephrology Provider 02/20/23 08/30/24 Joesph Crowe MD [address] [place] [address] 15854 Surgery 03/17/23 Joesph Crowe MD [address] [place] [address] 357645 Assigned Surgical Provider 04/03/23 09/30/24 Adonay Haq MD [address] [place] [address] 857245 Internal Medicine 06/14/23October, Denilson Jackson MD [address] [facility] [address] [place], [place] 449345 Assigned Heart and Vascular Provider 05/29/23 11/28/24 Jason Alvares MD 420 [facility] 295 [place], [place] 212505 Assigned Neuroscience Provider 05/15/23 11/28/24 Ruth Riddle DPM, Podiatry/Foot and Ankle Surgery [address] [place], [place] 179487 Assigned Musculoskeletal Provider 10/22/23 Jignesh Mathias MD [address] [place] [address] 309965 Gastroenterology 09/25/24 Adonay Haq MD [address] [place] [address] Assigned PCP 10/01/24 12/28/24 Omar Carmona MD [address] [place] [address] Assigned PCP 12/29/24 Jason Alvares MD [address] [place] [address] Assigned Neuroscience Provider 12/29/24 Jignesh Mathias MD [address] [place] [address] 877695 Assigned Surgical Provider 12/29/24 Ayad Lopez, PhD LP [address] [place] [address] Assigned Behavioral Health Provider 02/28/25 Gavi Nieto, PA-C [address] [place] [address] [phone] Physician Instructor Substitute Cosmetology Dermatology 03/19/25 documented as of this encounter
--- OUTSIDE RECORDS SUMMARY | 2025-03-24 20:23 | XMS_ITS | Encounter Summary ---
Author Organization [facility] Address [address] [place] [address] Care Team Providers Care Community Relations Officer Name Role Phone Barry Kilpatrick MD Unavailable Michelle Henderson RN Unavailable [phone] Rio Jaquez MD Unavailable [phone] Jemima Jaramillo MD Unavailable Unavai Kelley Bautista RN Unavailable +[phone] Sydnee Saleem MD Unavailable [phone] Karlene Moya MD Unavailable [phone] Wilbert Quintero OD Unavailable +[phone] Rod Gauthier DPM Unavailable Jan Mahmood MD Unavailable +[phone] Brandt Quintana MD Unavailable Jan Mahmood MD Unavailable [phone] Dom Eason MD Unavailable +[phone] Jaimie Vernon RN Unavailable Unavailable Marquise Hanley MD Unavailable +[phone] Vlad Ramey MD Unavailable +[phone] Joesph Crowe MD Unavailable [phone] Michelle Padilla RN Unavailable Unavaila ble Marquise Hanley MD Unavailable +[phone] Wagner Oliver MD Unavailable + [phone] Joesph Crowe MD Unavailable +[phone] Adonay Haq MD Unavailable [phone] Ruth RiddleM, Podiatry /Foot and Ankle Surgery Unavailable Omar Carmona MD Primary Care Provider [phone] Jignesh Mathias MD Unavailable Omar Carmona MD Unavailable [phone] Jason Alvares MD Unavailable Jignesh Mathias MD Unavailable Encounter Details Date Type Department Care Team (Latest Contact Info) Description 02/20/2025 Travel Social History Tobacco Use Types Packs/Day [...] than three times a week 08/27/2021 Attends [employer] Not on file 08/27 Do you belong to any clubs o r organizations such as protestant groups, unions, fraternal or athletic groups, or [...] Answer Date Recorded PHQ-2 Score 3 12/04/2024 [facility] - Occupational Stress Questionnaire Answer Date [...] in an abandoned building, in an overnight fci, or couch-surfing.) Yes 07/12/2023 Are you worried [...] Sex Assigned at Female 09/12/2020 12:05 PM EMERGENCY SERVICES PROFESSIONAL Legal Sex Female 3:26 AM EMERGENCY SERVICES PROFESSIONAL Gender Identity Female 09/12/2020 12:05 PM EMERGENCY SERVICES PROFESSIONAL Sexual Orientation Straight 12/19/2021 10 :44 AM [...] 03/26/2025 11:00 AM CDT Therapy Visit [address] [phone] Jason Alvares MD [address] [place] [address] 151315 Chaya Castillo OTR [facility] [place] [address] [address] 03/29/2025 10:30 AM CDT Therapy Visit [facility] [address] [facility] [address] [place] [phone] [place] [address] MICHAEL [address] [place], [place] 95[address] 04/02/2025 11:00 AM CDT Therapy Visit [address] [phone] Jason Alvares MD [address] [phone] Castillo, Chaya A, OTR [facility] [place] [address] [place] [address] 04/11/2025 12:30 PM CDT Office Visit [facility] [address] 4th [place] [address]-4800 Omar Carmona MD [address] [place] [address] 04/12/2025 2:15 PM CDT Therapy [facility] [place] [phone] Jason Alvares MD [address] [place] [address] Chaya Castillo OTR FV [place] 150 [facility] [place] [address] 04/16/2025 11:00 AM CDT Therapy Visit [facility] 150 [facility] [place] [phone] Jason Alvares MD [address] [place] [address] Chaya Castillo, OTR [facility] [place] [address] [place] [address] 04/23/2025 11:00 AM CDT Therapy Visit [facility] [address] [place] [phone] Jason Alvares MD [address] [place] [address] Chaya Castillo OTR [facility] [place] [address] [place] [address] 04/30/2025 11:00 AM CDT Therapy Visit [facility] 150 [place] [address] Jason Alvares MD 420 [facility] 295 [place] [address] Chaya Castillo, OTR [facility] 150 [place] [address] 05/15/2025 12:30 PM CDT Office Visit [address] [phone] Marquise Hanley MD [address] [place] [address] 06/08/2025 9:15 AM CDT Office Visit [facility] [address] [phone] Jignesh Mathias MD [address] [place] [address] 101575 11/05/2025 1:45 PM CDT Office Visit [facility] [address] 3rd [place] [address] Gavi Nieto PA-C Dermatology [address] [place] [address]80 documented as of this encounter Goals Goal [...] documented as of this encounter Care Teams Community Relations Officer Relationship Specialty Start Date End Date Omar Carmona MD [address] [place] [address] 017865 PCP - General Family Medicine 07/14/24 Barry Kilpatrick MD [address] [place] [address] [id number] [place], [place] 388975 Neurology 07/19/14 Michelle Henderson I, TANIA Nurse Coordinator Neurology 07/19/14 Rio Jaquez MD [address] [place] [address] 177195 Family Practice 10/15/14 Jemima Jaramillo MD [address] [place] [address] chief investigator 11/20/14 Kelley Chin, TANIA [facility] 909 [place], [place] 986745 Nurse Coordinator Cardiology 11/04/15 Sydnee Saleem MD [address] [place] [address] 508 [place], [place] 133235 Cardiology 11/04/15 Karlene Moya MD 6 [place], [place] 908095 Ophthalmology 06/24/17 Wilbert Quintero, OD [address] [place] [address] [phone] Optometry 06/24/17 Rod Gauthier DPM [address] [place] [address]141 Continuous Improvement Specialist Primary Podiatric Medicine 06/21/18 Jan Mahmood MD [address] [place] [address]25 Gastroenterology 11/05/20 Brandt Quintana MD [address] [place] [address] Resident 11/05/20 Jan Mahmood MD [address] [place] [address]807 Assigned Gastroenterology Provider 12/01/20 Dom Eason MD [address] [place] [address] Internal Medicine 12/02/20 Jaimie Vernon, RN Specialty Tabular Typist Cardiology 10/28/21 Marquise Hanley MD [address] [place] [address] Endocrinology, Diabetes, and Metabolism 03/05/22 Vlad Ramey MD [address] [place] [address]25 Cardiovascular Disease 05/07/22 Joesph Crowe MD [address] [place] [address]91 Surgery 05/07/22 Michelle Padilla, RN Specialty Tabular Typist Cardiology 07/03/22 Marquise Hanley MD [address] [place] [address]15 Assigned Endocrinology Provider 08/15/22 Wagner Oliver MD [address] [place] [address] Critical Care 12/15/22 Joesph Crowe MD [address] [place] [address]995 Surgery 03/17/23 Adonay Haq MD [address] [place] [address] Internal Medicine 06/14/23 Ruth Riddle DPVik, Podiatry/Foot and Ankle Surgery [address] [place] [address] Assigned Musculoskeletal Provider 10/22/23 Jignesh aMthias MD [address] [place] [address] Gastroenterology 09/25/24 Omar Carmona MD [address] [place] [address] 62441 Assigned PCP 12/29/24 Jason Alvares MD [address] [place] [address]8841 Assigned Neuroscience Provider 12/29/24 Jignesh Mathias MD [address] [place] [address] 40495 Assigned Surgical Provider 12/29/24 documented as of this encounter
--- OUTSIDE RECORDS SUMMARY | 2025-03-24 20:23 | XMS_ITS | Encounter Summary ---
Author Organization [place] Address [address] [place] [address]40 Care Team Providers Care Health Education Aide Name Role Phone Rio Jaquez MD Primary Care Provider [phone] Barry Kilpatrick MD Unavailable Michelle Henderson RN Unavailable [phone] Rio Jaquez MD Unavailable +[phone] Jemima Jaramillo MD Unavailable Unavai Kelley Bautista RN Unavailable +[phone] Sydnee Saleem MD Unavailable +[phone] Karlene Moya MD Unavailable +[phone] Wilbert Quintero OD Unavailable +[phone] Rod GauthierM Unavailable + [phone] Kerrie Verdin PA-C Unavailable +[phone] Nallely Hogue RN Unavailable Unavailable Larisa Vargas RN Unavailable Unavailable Rio Jaquez MD Unavailable +[phone] Ruth Yarbrough MD Unavailable +[phone] Francisco Lott MD Unavailable +[phone] Frida Grace MD Unavailable +[phone] Sydnee Saleem MD Unavailable +[phone] Greg Ortega MD Unavailable +[phone] Frida Grace MD Unavailable +[phone] Jan [...] Unavailable +[phone] Dom Eason MD Unavailable +[phone] Wagner Oliver MD Unavailable +[phone] Laura Epperson NP Unavailable +[phone] Thom Taveras MD Unavailable +[phone] Joesph Crowe MD Unavailable +[phone] Joesph Crowe MD Unavailable +- [phone] Adonay Haq MD Unavailable +[phone] Denilson Srinivasan MD Unavailable +[phone] Jason Alvares MD Unavailable Ruth Riddle DPM, Podiatry /Foot and Ankle Surgery Unavailable Omar Carmona MD Primary Care Provider [phone] Jignesh Mathias MD Unavailable Adonay Haq MD Unavailable +[phone] Omar Carmona MD Unavailable +[phone] Jason Alvares MD Unavailable Jignesh Mathias MD Unavailable Ayad Lopez PhD LP Unavailable +[phone] Gavi Nieto PA-C Unavailable +[phone] Encounter Details Date Type Department Care Team (Late st Contact Info) Description 03/08/2019 [facility], Ambulatory [address] [place] [address] Lizbeth Lopes Social History Tobacco Use Types Packs/Day Years Used Date Smoking Tobacco: Every Day Cigarettes 1 42.6 Started: 08/09/1982 Smokeless Tobacco: Never Alcohol Use Standard Drinks/Week Comments Yes 0 (1 standard drink = 0.6 oz pur e alcohol) occ Comments No Sex and Gender Information Value Date Recorded Sex Assigned at Female 09/12/2020 12:05 PM BALL ROLLING MACHINE OPERATOR Legal Sex Female 3:26 AM BALL ROLLING MACHINE OPERATOR Gender Identity Female 09/12/2020 12:05 PM BALL ROLLING MACHINE OPERATOR Sexual Orientation Straight 12/19/2021 10 :44 AM CDT Occupation Industry Job Start Date Job End Date on disability for FMS Not on file Not on file Not on file documented as of this encounter Plan of Treatment Upcoming Encounters Date Type Department Care Team (Late st Contact Info) Description 03/26/2025 11:00 AM CDT Therapy Visit [facility] [address] [place] [phone] Jason Alvares MD [address] [place] [address] 328845 Chaya Castillo OTR FV [address] 227847 03/29/2025 10:30 AM CDT Therapy Visit [facility] [address] [facility] [address] [place] [phone] [place] [address] MICHAEL [address] [place], [place] [phone] 04/02/2025 11:00 AM CDT Therapy Visit [facility] [address] [place] [phone] Jason Alvares MD [address] [place] [address] [phone] Chaya Castillo, OTR F[facility] [address] [id number] 04/11/2025 12:30 PM CDT Office Visit [facility] Primary Care Clinic [address] 4th [place] [address] Omar Carmona MD [address] [place] [address] 04/12/2025 2:15 PM CDT [facility] [address] [place] [phone] Jason Alvares MD [address] [place] [address] 95268 Chaya Castillo [facility] 150 [place] [address] 04/16/2025 11:00 AM CDT Therapy Visit [address] [phone] Jason Alvares MD [address] [place] [address] 28898 Chaya Castillo OTR [facility] 150 [place] [address] 04/23/2025 11:00 AM CDT Therapy [facility] [address] [place] [phone] Jason Alvares MD [address] [place] [address] 49434 Chaya Castillo OTR [facility] 150 [place] [address] 04/30/2025 11:00 AM CDT Therapy Visit [facility] [address] [place] [phone] Jason Alvares MD [address] [place] [address] 39[address] Chaya Castillo, OTR [address] [address] 05/15/2025 12:30 PM CDT Office Visit [address] [phone] Marquise Hanley MD [address] [place] [address] 289585 06/08/2025 9:15 AM CDT Office Visit [facility] Hepatology Clinic [address] [address] Jignesh Mathias MD [address] [place] [address] 060695 11/05/2025 1:45 PM CDT Office Visit [facility] Dermatology Clinic [address] 3rd [place] [address] Gavi Nieto PA-C Dermatology [address] [place] [address] [phone] documented as of this encounter Goals Goal [...] Total Score: 10 10/11/2 019 7:06 AM BALL ROLLING MACHINE OPERATOR documented as of this encounter Care Teams Health Education Aide Relationship Specialty Start Date End Date Rio Jaquez MD [address] [place] [address] 4 [place] [address] PCP - General Family Practice 12/02/10 07/13/24 Omar Carmona MD [address] [place] [address] 990455 PCP - General Family Medicine 07/14/24 Barry Kilpatrick MD [address] [place] [address] [id number] [place], [place] 097935 Neurology 07/19/14 Michelle Henderson RN Nurse Coordinator Neurology 07/19/14 Rio Jaquez MD [address] [place] [address] 46677 Family Practice 10/15/14 Jemima Jaramillo MD glass vial bending conveyor feeder 11/20/14 Kelley Chin, TANIA [address] 104705 Nurse Coordinator Cardiology 11/04/15 Sydnee Saleem MD [address] [place] [address] 508 [place], [place] 465345 Cardiology 11/04/15 Karlene Moya MD [address] [place] [address]455 Ophthalmology 06/24/17 Wilbert Quintero, OD [address] [place] [address] 113005 Optometry 06/24/17 Rod Gauthier DPM [address] [place] [address] [phone] Precinct Commanding Officer Primary Podiatric Medicine 06/21/18 Kerrie Verdin PA-C [address] [place] [address] [phone] Physician Metal Casting Trades Worker Physician Metal Casting Trades Worker 06/21/1808/07 Nallely Hogue, RN Registered Nurse 02/20/19 11/23/22 Larisa Vargas, TANIA Specialty Welding Robot Operator Cardiology 04/18/19 03/06/22 Rio Jaquez MD [address] [place] [address] 355135 Assigned PCP 12/28/19 11/16/20 Ruth Yarbrough MD [address] [place] [address] 101 [place], [place] 816155 Assigned Endocrinology Provider 05/31/20 09/28/20 Francisco Lott MD [address] [place] [address] 88 [place], [place] 542005 Assigned Rheumatology Provider 05/31/20 12/13/21 Frida Grace MD [facility] [place] [address] [place] [address] Assigned Pediatric Specialist Provider 05/31/20 09/08/20 Sydnee Saleem MD 6550 [facility] [address] [place] [address] Assigned Heart and Vascular Provider 05/31/20 10/22/20 Greg Ortega MD 909 [place] [address] Assigned Surgical Provider 06/23/20 12/06/21 Frida Garce MD [facility]5 [facility] [place] [address] [place] [address] Assigned Surgical Provider 05/31/20 06/22/20 Jan Mahmood MD 6 [facility] 2[address] [place] [address] Gastroenterology 11/05/20 Brandt Quintana MD [facility]4 [place] [address] Resident 11/05/20 Jan Mahmood MD 6 [facility] [address] [place] [address] Assigned Gastroenterology Provider 12/01/20 Rio Jaquez MD 909 [facility] 4 [place], [place] 620505 Assigned PCP 11/17/20 09/30/24 Dom Eason MD 717 [facility] 353 [place], [place] 467424 Internal Medicine 12/02/20 Jayla Plaza, RN Specialty Welding Robot Operator Hepatology 01/09/21 02/13/24 Jayla Plaza, RN Specialty Welding Robot Operator Hepatology 01/10/21 01/10/21 Sydnee Saleem MD 65[address] [facility] [address] [place] [address] [phone] Assigned Heart and Vascular Provider 02/02/21 07/24/22 Phan Coello MD Assigned Neuroscience Provider 02/21/21 11/22/21 [place] [address] [place] [address] 85977 Assigned Infectious Disease Provider 02/21/21 03/06/22 Dom Eason MD [address] [place] [address] 353 [place] [address] Assigned Nephrology Provider 04/20/21 01/02/22 Jaimie Vernon, RN Specialty Welding Robot Operator Cardiology 10/28/21 Ruth Riddle DPM, Podiatry/Foot and Ankle Surgery [address] 627937 Assigned Musculoskeletal Provider 11/30/21 09/30/23 Luis Arrington MD [address] [place] [address] 897995 Assigned Neuroscience Provider 11/23/21 01/02/22 Jason Alvares MD 420 [facility] 295 [place], [place] 978255 Assigned Neuroscience Provider 01/03/22 05/15/22 Marquise Hanley MD [address] [place] [address] 509265 Endocrinology, Diabetes, and Metabolism 03/05/22 Vlad Ramey MD [address] [place] [address] 62214 Cardiovascular Disease 05/07/22 Joesph Crowe MD [address] [place] [address] 02836 Surgery 05/07/22 Luis Arrington MD [address] [place] [address] 93123 Assigned Neuroscience Provider 05/16/22 05/14/23 Michelle Padilla RN Specialty Welding Robot Operator Cardiology 07/03/22 Vlad Ramey MD [address] [place] [address] 12714 Assigned Heart and Vascular Provider 07/25/22 05/28/23 Marquise Hanley MD [address] [place] [address] 51721 Assigned Endocrinology Provider 08/15/22 Dom Eason MD [address] [place] [address] 76582 Assigned Nephrology Provider 11/28/22 02/19/23 Wagner Oliver MD [address] [place] [address] Critical Care 12/15/22 Laura Epperson NP [address] [place] [address] 1932 [place] [address] Assigned Nephrology Provider 02/20/23 08/30/24 Thom Taveras MD [address] [place], [place] 6523005 [place] [address] Assigned Cancer Care Provider 02/06/23 08/20/23 Joesph Crowe MD [address] [place] [address] 86446 MD Surgery 03/17/23 Joesph Crowe MD [address] [place] [address] 99268 Assigned Surgical Provider 04/03/23 09/30/24 Adonay Haq MD [address] [place] [address] 61556 Internal Medicine 06/14/23OctoberDenilson MD [address] [place] [address] Assigned Heart and Vascular Provider 05/29/23 11/28/24 Jason Alvares MD [address] [place] [address] 295 [place] [address] Assigned Neuroscience Provider 05/15/23 11/28/24 Ruth Riddle DPM, Podiatry/Foot and Ankle Surgery [address] [place] [address] Assigned Musculoskeletal Provider 10/22/23 Jignesh Mathias MD [address] [place] [address] 13395 Gastroenterology 09/25/24 Adonay Haq MD [address] [place] [address] 585755 Assigned PCP 10/01/24 12/28/24 Omar Carmona MD [address] [place] [address] 235815 Assigned PCP 12/29/24 Jason Alvares MD [address] [place] [address] 426365 Assigned Neuroscience Provider 12/29/24 Jignesh Mathias MD [address] [place] [address] 418015 Assigned Surgical Provider 12/29/24 Ayad Lopez, PhD LP [address] [place] [address] 953025 Assigned Behavioral Health Provider 02/28/25 Gavi Nieto PANavinC [address] [place] [address] 814725 Physician Metal Casting Trades Worker Dermatology 03/19/25 documented as of this encounter
--- OUTSIDE RECORDS SUMMARY | 2025-03-24 20:24 | XMS_ITS | Encounter Summary ---
Author Organization [place] Address [address] [place] [address] 6[address] Care Team Providers Care Raw Stock Machine Loader Name Role Phone Rio Jaquez MD Primary Care Provider Barry Kilpatrick MD Unavailable Michelle Henderson I RN Unavailable [phone] Rio Jaquez MD Unavailable +[phone] Jemima Jaramillo MD Unavailable Unavai Kelley Bautista RN Unavailable [phone] Sydnee Saleem MD Unavailable +[phone] Karlene Moya MD Unavailable Wilbert Quintero OD Unavailable +[phone] Rod Gauthier DPM Unavailable Jan Mahmood MD Unavailable [phone] Brandt Quintana MD Unavailable [phone] Jan Mahmood MD Unavailable +[phone] Rio Jaquez MD Unavailable +[phone] Dom Eason MD Unavailable Jayla Plaza RN Unavailable +[phone] Jaimie Vernon RN Unavailable Unavailable Ruth Riddle DPM, Podiatry /Foot and Ankle Surgery Unavailable Marquise Hanley MD Unavailable +[phone] Vlad Ramey MD Unavailable +[phone] Joesph Crowe MD Unavailable +[phone] Luis Arrington MD Unavailable +[phone] Michelle Padilla RN Unavailable Unavaila ble Vlad Ramey MD Unavailable +[phone] Marquise Hanley MD Unavailable +[phone] Dom Eason MD Unavailable +[phone] Wagner Oliver MD Unavailable +[phone] Laura Epperson NP Unavailable +[phone] Thom Taveras MD Unavailable +[phone] Joesph Crowe MD Unavailable +[phone] Joesph Crowe MD Unavailable +[phone] Adonay Haq MD Unavailable +[phone] Denilson Srinivasan MD Unavailable + [phone] Jason Alvares MD Unavailable Ruth Riddle DPM, Podiatry /Foot and Ankle Surgery Unavailable Omar Carmona MD Primary Care Provider [phone] Jignesh Mathias MD Unavailable Adonay Haq MD Unavailable +[phone]- Omar Carmona MD Unavailable +[phone] Jason Alvares MD Unavailable Jignesh Mathias MD Unavailable Ayad Lopez PhD LP Unavailable +[phone] Gavi NietoC Unavailable [phone] Encounter Details Date Type Department Care Team (Late st Contact Info) Description 01/27/2023 [facility] Advice [facility] Hepatology Clinic [address] [address] Lizbeth Lopes Social History Tobacco Use Types Packs/Day Years Used Date Smoking Tobacco: Every Day Cigarettes 0.5 42.6 Started: 08/09/1982 Smokeless Tobacco: Never Alcohol Use Standard Drinks/Week Comments Not Currently 0 (1 standard drink = 0.6 oz pur e alcohol) Last drink 10/11/2020 Humiliation, Afraid, Rape, and Kick questionnair e Answer Date Recorded Within the last year, have y ou been afraid of your partner or ex-partner? No 08/27/2021 Within the last year, have y ou been humiliated or emotionally abused in other ways by your partner or ex-partner? No Within the last year, have y ou been kicked, hit, slapped, or otherwise physically hurt by your partner or ex-partner? No 08/27/2021 Within the last year, have y ou been raped or forced to have any kind of sexual activity by your partner or ex-partner? No 08/27/2021 Social Connection and Isolat ion Panel [NHANES] Answer Date Recorded In a typical week, how many times do you talk on the phone with family, friends, or neighbors? More than three times a week 08/27/2021 How often do you get togethe r with friends or relatives? More than three times a week 08/27/2021 Attends Yazdan[employer] Services Not on file 08/27 Do you [...] more drinks on one occasion? Never 08/27/2021 Overall Financial Resource Strain (CARDIA) Answe r Date Recorded How hard is it for you to pa y for the very basics like food, housing, medical care, and heating? Not hard at all 08/27/2021 PHQ-2 Answer Date Recorded PHQ-2 Score 1 01/27/2023 [facility] [...] Exercise per Session Not on file 08/27/2021 Hunger Vital Sign Answer Date Recorded Within the past 12 months, y ou worried that your food would run out before you got the money to buy more. Never true 08/27/19 22 Within the past 12 months, t he food you bought just didn't last and you didn't have money to get more. Never true 08/27/2021 PRAPARE - Transportation Answer Date Re corded In the past 12 months, has l ack of transportation kept you from medical appointments or from getting medications? No 08/09 In the past 12 months, has l ack of transportation kept you from meetings, work, or from getting things needed for daily living? No 08/27/2021 Housing Stability Vital Sign Answer Emir e Recorded In the last 12 months, was t here a time when you were not able to pay the mortgage or rent on time? No 08/27/2021 In the last 12 months, how many places have you lived? 1 08/27/2021 In the last 12 months, was t here a time when you did not have a steady place to sleep or slept in a detention (including now)? No 08/27/2021 Comments No Sex and Gender Information Value Date Recorded Sex Assigned at Female 09/12/2020 12:05 PM COMPUTER SYSTEMS SOFTWARE ENGINEER Legal Sex Female 3:26 AM COMPUTER SYSTEMS SOFTWARE ENGINEER Gender Identity Female 09/12/2020 12:05 PM COMPUTER SYSTEMS SOFTWARE ENGINEER Sexual Orientation Straight 12/19/2021 10 :44 AM CDT Occupation Industry Job Start Date Job End Date on disability for FMS Not on file Not on file Not on file disabled Not on file Not on file Not on file COVID-19 Exposure Response Date Recorded In the last 10 days, have yo u been in contact with someone who was confirmed or suspected to have Coronavirus/COVID-19? No / Unsure 01/29/2023 9:27 AM CDT documented as of this encounter Plan of Treatment Upcoming Encounters Date Type Department Care Team (Late st Contact Info) Description 03/26/2025 11:00 AM CDT Therapy Visit [facility] 150 [place] [phone] Jason Alvares MD [address] [place] [address] 610505 Chaya Castillo OTR FV [facility] [address] 683437 03/29/2025 10:30 AM CDT Therapy Visit [facility] [address] [facility] [address] [place] [phone] [place] [address] MICHAEL [address] [place] [address] 04/02/2025 11:00 AM CDT Therapy Visit [address] [phone] Jason Alvares MD [address] [place] [address] [phone] Castillo, Chaya A, OTR [facility] [place] [address] [place] [address] 04/11/2025 12:30 PM CDT Office Visit [facility] Primary Care Clinic [address] 4th [place] [phone] Omar Carmona MD [address] [place] [address] 04/12/2025 2:15 PM CDT Therapy [facility] [address] [place] [phone] Jason Alvares MD [address] [place] [address] 00771 Chaya Castillo, OTR [facility] [place] [address] [place] [address] 04/16/2025 11:00 AM CDT Therapy Visit [facility] [address] [place] [phone] Jason Alvares MD [address] [place] [address] 577[address] Chaya Castillo, OTR [facility] [place] [address] [place] [address] 04/23/2025 11:00 AM CDT Therapy Visit [facility] [place] [address] [place] [phone] Jason Alvares MD [address] [place] [address] Chaya Castillo OTR [facility] [place] [address] [place] [address] 04/30/2025 11:00 AM CDT Therapy Visit [facility] 150 [place] [address]14 Jason Alvares MD 420 [facility] 295 [place] [address] Chaya Castillo, OTR [facility] 150 [place] [address] 05/15/2025 12:30 PM CDT Office Visit [address] [phone] Marquise Hanley MD [address] [place] [address] 06/08/2025 9:15 AM CDT Office Visit [facility] Hepatology Clinic [address] [phone] Jignesh Mathias MD [address] [place] [address] 216575 11/05/2025 1:45 PM CDT Office Visit [facility] Dermatology Clinic [address] 3rd [place] [phone] Gavi Nieto PA-C Dermatology [address] [place] [address] documented as of this encounter Goals Goal [...] Assessment Noted Time PHQ-9 Depression Total Score: 6 10/22/19 23 12:23 PM CDT documented as of this encounter Care Teams Raw Stock Machine Loader Relationship Specialty Start Date End Date Rio Jaquez MD [address] [place] [address] 46103 PCP - General Family Practice 12/02/10 07/13/24 Omar Carmona MD [address] [place] [address] 536995 PCP - General Family Medicine 07/14/24 Barry Kilpatrick MD [address] [place] [address] [id number] [place] [address] Neurology 07/19/14 Michelle Henderson I, RN Nurse Coordinator Neurology 07/19/14 Rio Jaquez MD [address] [place] [address] 195635 Family Practice 10/15/14 Jemima Jaramillo MD ramp agent 11/20/14 Kelley Chin, TANIA [address] 131605 Nurse Coordinator Cardiology 11/04/15 Sydnee Saleem MD [address] [place] [address] 508 [place] [address] Cardiology 11/04/15 Karlene Moya MD [address] [place] [address] 45442 Ophthalmology 06/24/17 Wilbert Quintero OD [address] [place] [address] 99420 Optometry 06/24/17 Rod Gauthier DPM [address] [place] [address] 15005 Senior Linux Administrator Primary Podiatric Medicine 06/21/18 Jan Mahmood MD [address] [place] [address] 28059 Gastroenterology 11/05/20 Brandt Quintana MD [address] [place] [address] 10119 Resident 11/05/20 Jan Mahmood MD [address] [place] [address] 49278 Assigned Gastroenterology Provider 12/01/20 Rio Jaquez MD [address] [place] [address] 67613 Assigned PCP 11/17/20 09/30/24 Dom Eason MD [address] [place] [address] [address] Internal Medicine 12/02/20 Jayla Plaza, RN Specialty Staffing Executive Hepatology 01/09/21 02/13/24 Jaimie Vernon, TANIA Specialty Staffing Executive Cardiology 10/28/21 Ruth Riddle, DPM, Podiatry/Foot and Ankle Surgery [address] [place] [address] Assigned Musculoskeletal Provider 11/30/21 09/30/23 Marquise Hanley MD [address] [place] [address] 83183 Endocrinology, Diabetes, and Metabolism 03/05/22 Vlad Ramey MD [address] [place] [address] 96810 Cardiovascular Disease 05/07/22 Joesph Crowe MD [address] [place] [address] 15914 MD Surgery 05/07/22 Luis Arrington MD [address] [place] [address] 69111 Assigned Neuroscience Provider 05/16/22 05/14/23 Michelle Padilla RN Specialty Staffing Executive Cardiology 07/03/22 Vlad Ramey MD [address] [place] [address] 52187 Assigned Heart and Vascular Provider 07/25/22 05/28/23 Marquise Hanley MD [address] [place] [address] 60246 Assigned Endocrinology Provider 08/15/22 Dom Eason MD 717 [facility] [address] [place] [address] Assigned Nephrology Provider 11/28/22 02/19/23 Wagner Oliver MD [address] [place] [address] Critical Care 12/15/22 Laura Epperson, LULU 717 [facility] 1932 [place] [address] Assigned Nephrology Provider 02/20/23 08/30/24 Thom Taveras MD [address] [facility], [address] [place] [address] Assigned Cancer Care Provider 02/06/23 08/20/23 Joesph Crowe MD 909 [place] [address] Surgery 03/17/23 Joesph Crowe MD 909 [place] [address] Assigned Surgical Provider 04/03/23 09/30/24 Adonay Haq MD 909 [place] [address] Internal Medicine 06/14/23OctoberDenilson MD 6405 [facility] [address] [place] [address] Assigned Heart and Vascular Provider 05/29/23 11/28/24 Jason Alvares MD 420 [facility] 295 [place] [address] Assigned Neuroscience Provider 05/15/23 11/28/24 Ruth Riddle, DPM, Podiatry/Foot and Ankle Surgery [address] [place] [address] Assigned Musculoskeletal Provider 10/22/23 Jignesh Mathias MD [address] [place] [address] [phone] Gastroenterology 09/25/24 Adonay Haq MD [address] [place] [address] 438165 Assigned PCP 10/01/24 12/28/24 Omar Carmona MD [address] [place] [address] 605405 Assigned PCP 12/29/24 Jason Alvares MD [address] [place] [address] 295 [place], [place] 535685 Assigned Neuroscience Provider 12/29/24 Jignesh Mathias MD [address] [place] [address] 46175 Assigned Surgical Provider 12/29/24 Ayad Lopez, PhD LP [address] [place] [address] 431945 Assigned Behavioral Health Provider 02/28/25 Gavi Nieto, PA-C [address] [place] [address] 61629 Physician Instrumentation Instructor Dermatology 03/19/25 documented as of this encounter
--- OUTSIDE RECORDS SUMMARY | 2025-03-24 20:24 | XMS_ITS | Encounter Summary ---
Author Organization [place] Address [address] [place] [address] Care Team Providers Care Transportation Inspector Name Role Phone Rio Jaquez MD Primary Care Provider Barry Kilpatrick MD Unavailable Michelle Henderson RN Unavailable [phone] Rio Jaquez MD Unavailable [phone] Jemima Jaramillo MD Unavailable Unavai Kelley Bautista RN Unavailable [phone] Sydnee Saleem MD Unavailable [phone] Karlene Moya MD Unavailable [phone] Wilbert Quintero OD Unavailable +[phone] Rod Gauthier DPM Unavailable [phone] Nallely Hogue RN Unavailable Unavailable Larisa Vargas RN Unavailable Unavailable Francisco Lott MD Unavailable [phone] Greg Ortega MD Unavailable [phone] Jan Mahmood MD Unavailable [phone] Brandt Quintana MD Unavailable [phone] Jan Mahmood MD Unavailable Rio Jaquez MD Unavailable [phone] Dom Eason MD Unavailable Jayla Plaza RN Unavailable Sydnee Saleem MD Unavailable Phan Coello MD Unavailable Unavailable Cristian Barragan MD Unavailable Dom Eason MD Unavailable Jaimie Vernon RN Unavailable Unavailable Ruth Riddle DPM, Podiatry /Foot and Ankle Surgery Unavailable Luis Arrington MD Unavailable Jason Alvares MD Unavailable Marquise Hanley MD Unavailable [phone] Vlad Ramey MD Unavailable Joesph Crowe MD Unavailable Luis Arrington MD Unavailable Michelle Padilla RN Unavailable Unavaila ble Vlad Ramey MD Unavailable Marquise [place] MD Unavailable [phone] Dom Eason MD Unavailable Wagner Oliver MD Unavailable Laura Epperson NP Unavailable [phone] Thom Taveras MD Unavailable Joesph Crowe MD Unavailable [phone] Joesph Crowe MD Unavailable [phone] Adonay Haq MD Unavailable [phone] Denilson Srinivasan MD Unavailable [phone] Jason Alvares MD Unavailable Ruth RiddleM, Podiatry /Foot and Ankle Surgery Unavailable Omar Carmona MD Primary Care Provider Jignesh Mathias MD Unavailable Adonay Haq MD Unavailable [phone] Omar Carmona MD Unavailable Jason Alvares MD Unavailable Jignesh Mathias MD Unavailable Ayad Lopez PhD LP Unavailable [phone] Gavi Nieto-C Unavailable [phone] Encounter Details Date Type Department Care Team (Late st Contact Info) Description 08/05/2021 [facility] Advice [facility] [address] [address] Phan Coello MD Social History Tobacco Use Types Packs/Day Years Used Date Smoking Tobacco: Every Day Cigarettes 0.5 38.2 Started: 08/09/1982; Last attempted to quit: 10/11/2020 Smokeless Tobacco: Never Alcohol Use Standard Drinks/Week Comments Not Currently 0 (1 standard drink = 0.6 oz pur e alcohol) Last drink 10/11/2020 PHQ-2 Answer Date Recorded PHQ-2 Score 0 04/21/2021 Comments No Sex and Gender Information Value Date Recorded Sex Assigned at Female 09/12/2020 12:05 PM IT INFRASTRUCTURE CONSULTANT Legal Sex Female 3:26 AM IT INFRASTRUCTURE CONSULTANT Gender Identity Female 09/12/2020 12:05 PM IT INFRASTRUCTURE CONSULTANT Sexual Orientation Straight 12/19/2021 10 :44 AM CDT Occupation Industry Job Start Date Job End Date on disability for FMS Not on file Not on file Not on file COVID-19 Exposure Response Date Recorded In the last month, have you been in contact with someone who was confirmed or suspected to have Coronavirus / COVID-19? No / Unsure 07/28/2021 12:39 PM IT INFRASTRUCTURE CONSULTANT documented as of this encounter Plan of Treatment Upcoming Encounters Date Type Department Care Team (Late st Contact Info) Description 03/26/2025 11:00 AM CDT Therapy Visit [address] [address] Jason Alvares MD [address] [place] [address] 651975 Chaya Castillo, OTR [address] [address] 03/29/2025 10:30 AM CDT Therapy Visit [facility] [place] [address] [facility] [address] [place] [phone] [place] [address] MICHAEL [address] [place] [address] 04/02/2025 11:00 AM CDT Therapy Visit [address] [phone] Jason Alvares MD [address] [place] [address] Chaya Castillo, OTR [address] [address] 04/11/2025 12:30 PM CDT Office Visit [facility] [address] 4th [place] [phone] Omar Carmona MD [address] [place] [address] 399715 04/12/2025 2:15 PM CDT Therapy Visit [facility] [address] [address] [place] [address] aJson Alvares MD [address] [place] [address] Chaya Castillo, OTR [facility] [address] [place] [address] 04/16/2025 11:00 AM CDT Therapy [facility] [address] [place] [address] Jason Alvares MD [address] [place] [address] Chaya Castillo OTR [facility] 150 [facility] [place] [address] 04/23/2025 11:00 AM CDT Therapy Visit [facility] [place] [address] Jason Alvares MD [address] [place] [address] Chaya Castillo OTR [facility] 150 [facility] [place] [address] 04/30/2025 11:00 AM CDT Therapy Visit [facility] [address] [place] [address] Jason Alvares MD [address] [place] [address] Chaya Castillo OTR [facility] [address] [place] [address] 05/15/2025 12:30 PM CDT Office Visit [address] [address] Marquise Hanley MD [address] [place] [address] 06/08/2025 9:15 AM CDT Office Visit [facility] [address] [phone] Jignesh Mathias MD [address] [place] [address] 420535 11/05/2025 1:45 PM CDT Office Visit [facility] [address] 3rd [place] [address] Gavi Nieto PA-C Dermatology [address] [place] [address] documented as of this encounter Goals Goal [...] Noted Time PHQ-9 Depression Total Score: 12 021 9:43 AM IT INFRASTRUCTURE CONSULTANT documented as of this encounter Care Teams Transportation Inspector Relationship Specialty Start Date End Date Rio Jaquez MD [address] [place] [address] PCP - General Family Practice 4/26/11 12/5/24 Omar Carmona MD [address] [place] [address] [phone] PCP - General Family Medicine 07/14/24 Barry Kilpatrick MD [address] [place] [address] [id number] [place], [place] [phone] Neurology 07/19/14 Michelle Henderson I, RN Nurse Coordinator Neurology 07/19/14 Rio Jaquez MD [address] [place] [address] 4 [place], [place] 141235 Family Practice 10/15/14 Jemima Jaramillo MD appliance adjuster 11/20/14 Kelley Chin, TANIA [address] [address] Nurse Coordinator Cardiology 11/04/15 Sydnee Saleem MD [address] [place] [address] 508 [place], [place] 031715 Cardiology 11/04/15 Karlene Moya MD [address] [place] [address] 232485 Ophthalmology 06/24/17 Wilbert Quintero, OD [address] [place] [address] 175625 Optometry 06/24/17 Rod Gauthier DPM [address] [place] [address] Supervisor Billposting Primary Podiatric Medicine 06/21/18 Nallely Hogue, RN Registered Nurse 02/20/19 11/23/22 Larisa Vargas, RN Specialty Tire And Lube Technician Cardiology 04/18/19 03/06/22 Francisco Lott MD 515 [facility] 88 [place] [address] Assigned Rheumatology Provider 05/31/20 12/13/21 Greg Ortega MD 909 [place], [place] 907005 Assigned Surgical Provider 06/23/20 12/06/21 Jan Mahmood MD 6 [facility] 2A [place] [address] Gastroenterology 11/05/20 Brandt Quintana MD [facility] [place] [address] Resident 11/05/20 Jan Mahmood MD 6 [facility] 2A [place] [address] Assigned Gastroenterology Provider 12/01/20 Rio Jaquez MD 909 [facility] 4 [place] [address] Assigned PCP 11/17/20 09/30/24 Dom Eason MD 717 [facility] 353 [place] [address] Internal Medicine 12/02/20 Jayla Plaza, RN Specialty Tire And Lube Technician Hepatology 01/09/21 02/13/24 Sydnee Saleem MD 6550 [facility] [address] [place] [address] Assigned Heart and Vascular Provider 02/02/21 07/24/22 Phan oCello MD Assigned Neuroscience Provider 02/21/21 11/22/21 Cristian Barragan MD 2945 [place] [address] Assigned Infectious Disease Provider 02/21/21 03/06/22 Dom Eason MD [address] [place] [address] 353 [place] [address] Assigned Nephrology Provider 04/20/21 01/02/22 Jaimie Vernon, TANIA Specialty Tire And Lube Technician Cardiology 10/28/21 Ruth Riddle, DPM, Podiatry/Foot and Ankle Surgery 58556 [facility] 300 [place], [place] 934627 Assigned Musculoskeletal Provider 11/30/21 09/30/23 Luis Arrington MD 909 [place], [place] 789605 Assigned Neuroscience Provider 11/23/21 01/02/22 Jason Alvares MD 420 [facility] 295 [place], [place] 138305 Assigned Neuroscience Provider 01/03/22 05/15/22 Marquise Han[place] MD [address] [place] [address] Endocrinology, Diabetes, and Metabolism 03/05/22 Vlad Ramey MD [address] [place] [address] Cardiovascular Disease 05/07/22 Joesph Crowe MD [address] [place] [address] Surgery 05/07/22 Luis Arrington MD [address] [place] [address] Assigned Neuroscience Provider 05/16/22 05/14/23 Michelle Padilla RN Specialty Tire And Lube Technician Cardiology 07/03/22 Vlad Ramey MD [address] [place] [address] Assigned Heart and Vascular Provider 07/25/22 05/28/23 Marquise Han[place] MD [address] [place] [address] Assigned Endocrinology Provider 08/15/22 Dom Eason MD [address] [place] [address] Assigned Nephrology Provider 11/28/22 02/19/23 Wagner Oliver MD [address] [place] [address] Critical Care 12/15/22 Laura Epperson NP 717 [facility] 1932 [place] [address] Assigned Nephrology Provider 02/20/23 08/30/24 Thom Taveras MD [address] [place] [address] Assigned Cancer Care Provider 02/06/23 08/20/23 Joesph Crowe MD 9 [place] [address] Surgery 03/17/23 Joesph Crowe MD [address] [place] [address] Assigned Surgical Provider 04/03/23 09/30/24 Adonay Haq MD 909 [place], [place] 009145 Internal Medicine 06/14/23OctoberDenilson MD [address] [facility] [address] [place] [address] Assigned Heart and Vascular Provider 05/29/23 11/28/24 Jason Alvares MD 420 [facility] 295 [place], [place] 366785 Assigned Neuroscience Provider 05/15/23 11/28/24 Ruth Riddle DPM, Podiatry/Foot and Ankle Surgery [address] [place] [place] [address] Assigned Musculoskeletal Provider 10/22/23 Jignesh Mathias MD [address] [place] [address] 535695 Gastroenterology 09/25/24 Adonay Haq MD [address] [place] [address] [phone] Assigned PCP 10/01/24 12/28/24 Omar Carmona MD [address] [place] [address] 109425 Assigned PCP 12/29/24 Jason Alvares MD [address] [place] [address] 943655 Assigned Neuroscience Provider 12/29/24 Jignesh Mathias MD [address] [place] [address] 059325 Assigned Surgical Provider 12/29/24 Ayad Lopez, PhD LP [address] [place] [address] 571485 Assigned Behavioral Health Provider 02/28/25 Gavi Nieto PA-C [address] [place] [address] 261305 Physician Survey Cad Technician Dermatology 03/19/25 documented as of this encounter
--- OUTSIDE RECORDS SUMMARY | 2025-03-24 20:24 | XMS_ITS | Encounter Summary ---
Author Organization [place] Address [address] [place] [address] Care Team Providers Care Casting Machine Set Up Operator Name Role Phone Rio Jaquez MD Primary Care Provider Barry Kilpatrick MD Unavailable Michelle Henderson I RN Unavailable [phone] Rio Jaquez MD Unavailable [phone] Jemima Jaramillo MD Unavailable Unavai Kelley Bautista RN Unavailable [phone] Sydnee Saleem MD Unavailable [phone] Karlene Moya MD Unavailable Wilbert Quintero OD Unavailable [phone] Rod Gauthier DPM Unavailable Jan Mahmood MD Unavailable [phone] Brandt Quintana MD Unavailable [phone] Jan Mahmood MD Unavailable +[phone] Rio Jaquez MD Unavailable [phone] Dom Eason MD Unavailable Jayla Plaza RN [...] Unavailable [phone] Dom Eason MD Unavailable [phone] Wagner Oliver MD Unavailable [phone] Laura Epperson NP Unavailable [phone] Thom Taveras MD Unavailable [phone] Joesph Crowe MD Unavailable +[phone] Joesph Crowe MD Unavailable +[phone] Adonay Haq MD Unavailable [phone] Denilson Srinivasan MD Unavailable + [phone] Jason Alvares MD Unavailable Ruth Riddle DPM, Podiatry /Foot and Ankle Surgery Unavailable Omar Carmona MD Primary Care Provider [phone] Jignesh Mathias MD Unavailable Adonay Haq MD Unavailable +[phone] Omar Carmona MD Unavailable [phone] Jason Alvares MD Unavailable Jignesh Mathias MD Unavailable Ayad Lopez PhD LP Unavailable Gavi Nieto PA-C Unavailable Encounter Details Date Type Department Care Team (Late st Contact Info) Description 01/25/2023 MyC Medical Advice [facility] [address] 4th [place] [address] Rio Jaquez MD [address] [place] [address] 4 [place] [address] Social History Tobacco Use Types [...] than three times a week 08/27/2021 Attends [employer] Not on file 08/27 Do you [...] Answer Date Recorded PHQ-2 Score 1 01/27/2023 [facility] - Occupational [...] place to sleep or slept in a correction (including now)? No 08/27/2021 Comments No Sex and Gender Information Value Date Recorded Sex Assigned at Female 09/12/2020 12:05 PM INSURANCE AGENTS SUPERVISOR Legal Sex Female 3:26 AM INSURANCE AGENTS SUPERVISOR Gender Identity Female 09/12/2020 12:05 PM INSURANCE AGENTS SUPERVISOR Sexual Orientation Straight 12/19/2021 10 :44 [...] suspected to have Coronavirus/COVID-19? No / Unsure 01/22/2023 1:50 PM CDT documented as of this encounter Plan of Treatment Upcoming Encounters Date Type Department Care Team (Late st Contact Info) Description 03/26/2025 11:00 AM CDT Therapy Visit [address] [phone] Jason Alvares MD [address] [address] Chaya Castillo, OTR [address] [address] 03/29/2025 10:30 AM CDT Therapy Visit [facility] [address] [place] [phone] [place] [address]EL [address] [place], [place] [address] 04/02/2025 11:00 AM CDT Therapy Visit [address] [phone] Jason Alvares MD 420 [place] [phone] Chaya Castillo OTR [facility] 150 [facility] [place] [address] 04/11/2025 12:30 PM CDT Office Visit [facility] [address] 4th [place] [phone] Omar Carmona MD [address] [place] [address] 04/12/2025 2:15 PM CDT [facility] 150 [place] [address] Jason Alvares MD [address] [place] [address] Chaya Castillo OTR [facility] 150 [facility] [place] [address] 04/16/2025 11:00 AM CDT Therapy Visit [facility] 150 [facility] [place] [phone] Jason Alvares MD [address] [place] [address] Chaya Castillo OTR [facility] 150 [place] [address] 04/23/2025 11:00 AM CDT Therapy Visit [facility] 150 [place] [phone] Jason Alvares MD [address] [place] [address] Chaya Castillo, OTR [facility] 150 [place] [address] 04/30/2025 11:00 AM CDT Therapy Visit [facility] 150 [place] [phone] Jason Alvares MD [address] [place] [address] Chaya Castillo OTR [facility] 150 [place] [address] 05/15/2025 12:30 PM CDT Office Visit [address] [phone] Marquise Hanley MD [address] [place] [address] 06/08/2025 9:15 AM CDT Office Visit [facility]ology [facility] [address] [phone] Jignesh Mathias MD [address] [place] [address] 11/05/2025 1:45 PM CDT Office Visit [facility]ermatology Clinic [address] 3rd [place] [address] Gavi Nieto PA-C Dermatology [address] [place] [address] [phone] documented as of this encounter Goals Goal [...] documented as of this encounter Care Teams Casting Machine Set Up Operator Relationship Specialty Start Date End Date Rio Jaquez MD [address] [place] [address] [phone] PCP - General Family Practice 12/02/10 07/13/24 Omar Carmona MD [address] [place] [address] PCP - General Family Medicine 07/14/24 Barry Kilpatrick MD [address] [place] [address] [id number] [place], [place] [phone] Neurology 07/19/14 Michelle Henderson RN Nurse Coordinator Neurology 07/19/14 Rio Jaquez MD [address] [place] [address] 906845 Family Practice 10/15/14 Jemima Jaramillo MD integration specialist 11/20/14 Kelley Chin, TANIA [address] [phone] Nurse Coordinator Cardiology 11/04/15 Sydnee Saleem MD [address] [place] [address] 508 [place] [address] Cardiology 11/04/15 Karlene Moya MD 6 [place] [address] MD Ophthalmology 06/24/17 Wilbert Quintero, OD 9 [place], [place] 361765 Optometry 06/24/17 Rod Gauthier DPM [address] [place] [address] 280645 MD Panelboard Assembler Primary Podiatric Medicine 06/21/18 Jan Mahmood MD [address] [place] [address] 2A [place] [address] MD Gastroenterology 11/05/20 Brandt Quintana MD [address] [place] [address] Resident 11/05/20 Jan Mahmood MD [address] [place] [address] Assigned Gastroenterology Provider 12/01/20 Rio Jaquez MD 909 [facility] [address] [place] [address] 018975 Assigned PCP 11/17/20 09/30/24 Dom Eason MD 717 [facility] MIC[address]EL 353 [place], [place] 029334 Internal Medicine 12/02/20 Jayla Plaza, RN Specialty Hospitalist Physician Hepatology 01/09/21 02/13/24 Jaimie Vernon, RN Specialty Hospitalist Physician Cardiology 10/28/21 Ruth Riddle, DPM, Podiatry/Foot and Ankle Surgery [address] [address] Assigned Musculoskeletal Provider 11/30/21 09/30/23 Marquise Hanley MD [address] [place] [address] [phone] Endocrinology, Diabetes, and Metabolism 03/05/22 Vlad Ramey MD [address] [place] [address] 775355 Cardiovascular Disease 05/07/22 Joesph Crowe MD [address] [place] [address] [phone] Surgery 05/07/22 Luis Arrington MD [address] [place] [address] 219455 Assigned Neuroscience Provider 05/16/22 05/14/23 Michelle Padilla RN Specialty Hospitalist Physician Cardiology 07/03/22 Vlad Ramey MD [address] [place] [address] 930145 Assigned Heart and Vascular Provider 07/25/22 05/28/23 Marquise Hanley MD [address] [place] [address] 962065 Assigned Endocrinology Provider 08/15/22 Dom Eason MD 717 [facility] 353 [place] [address] Assigned Nephrology Provider 11/28/22 02/19/23 Wagner Oliver MD [address] [place] [address] Critical Care 12/15/22 Laura Epperson NP 717 [facility] 1932 [place] [address] Assigned Nephrology Provider 02/20/23 08/30/24 Thom Taveras MD [facility] [address] [place] [address] Assigned Cancer Care Provider 02/06/23 08/20/23 Joesph Crowe MD [address] [place] [address] Surgery 03/17/23 Joesph Crowe MD [address] [place] [address] Assigned Surgical Provider 04/03/23 09/30/24 Adonay Haq MD [address] [place] [address] 163755 Internal Medicine 06/14/23OctoberDenilson MD 6405 [facility] [address] [place] [address] Assigned Heart and Vascular Provider 05/29/23 11/28/24 Jason Alvares MD [address] [place] [address] Assigned Neuroscience Provider 05/15/23 11/28/24 Ruth Riddle DPM, Podiatry/Foot and Ankle Surgery [address] [place] [address] Assigned Musculoskeletal Provider 10/22/23 Jignesh Mathias MD [address] [place] [address] [phone] Gastroenterology 09/25/24 Adonay aHq MD [address] [place] [address] Assigned PCP 10/01/24 12/28/24 Omar Carmona MD [address] [place] [address] [phone] Assigned PCP 12/29/24 Jason Alvares MD [address] [place] [address] Assigned Neuroscience Provider 12/29/24 Jignesh Mathias MD [address] [place] [address] 147635 Assigned Surgical Provider 12/29/24 Ayad Lopez, PhD LP [address] [place] [address] 958575 Assigned Behavioral Health Provider 02/28/25 Gavi Nieto PA-C 500 [place] [address] Physician R Programmer Dermatology 03/19/25 documented as of this encounter
--- OUTSIDE RECORDS SUMMARY | 2025-03-24 20:24 | XMS_ITS | Encounter Summary ---
Author Organization [facility] Address [address] [place] [address] Care Team Providers Care Iron Guardrail Installer Name Role Phone Rio Jaquez MD Primary Care Provider Barry Kilpatrick MD Unavailable Michelle Henderson I RN Unavailable [phone] Rio Jaquez MD Unavailable +[phone] Jemima Jaramillo MD Unavailable Unavai Kelley Bautista RN Unavailable [phone] Sydnee Saleem MD Unavailable +[phone] Karlene Moya MD Unavailable Wilbert Quintero OD Unavailable +[phone] Rod Gauthier DPM Unavailable Jan Mahmood MD Unavailable [phone] Brandt Quintana MD Unavailable [phone] Jan Mahmood MD Unavailable +[phone] Rio Jaquez MD Unavailable +[phone] Dom Eason MD Unavailable Jayla Plaza RN Unavailable +[phone] Jaimie Vernno RN Unavailable Unavailable Ruth Riddle DPM, Podiatry /Foot and Ankle Surgery Unavailable Marquise Hanley MD Unavailable +[phone] Vlad Ramey MD Unavailable +[phone] Joesph Crowe MD Unavailable +[phone] Luis Arrington MD Unavailable +[phone] Michelle Padilla RN Unavailable Unavaila ble Vlad Ramey MD Unavailable +[phone] Marquise Hanley MD Unavailable +[phone] Dom Eason MD Unavailable +[phone] Wagner Oliver MD Unavailable +[phone] Laura Epperson NP Unavailable +[phone] Thom Taveras MD Unavailable +[phone] Joesph Crowe MD Unavailable +[phone] Joesph Crowe MD Unavailable +[phone] Adonay Haq MD Unavailable +[phone] Denilson Srinivasan MD Unavailable + [phone] Jason Alvares MD Unavailable Ruth Riddle DPM, Podiatry /Foot and Ankle Surgery Unavailable Omar Carmona MD Primary Care Provider [phone] Jignesh Mathias MD Unavailable Adonay Haq MD Unavailable +[phone]- Omar Carmona MD Unavailable [phone] Jason Alvares MD Unavailable Jignesh Mathias MD Unavailable Ayad Lopez PhD LP Unavailable [phone] Gavi Nieto PA-C Unavailable Encounter Details Date Type Department Care Team (Late st Contact Info) Description 12/07/2022 MyC Medical Advice [facility] [address] [address] Jan Mahmood MD [address] [place] [address] [address] [place] [address] Social History Tobacco Use Types Packs/Day Years [...] than three times a week 08/27/2021 Attends [employer] Services Not on file 08/27 Do you belong to any clubs o r organizations such as restorationism groups, unions, fraternal or athletic groups, or [...] PHQ-2 Answer Date Recorded PHQ-2 Score 2 10/21/2022 [facility] - Occupational [...] place to sleep or slept in a intermediate (including now)? No 08/27/2021 Comments No Sex and Gender Information Value Date Recorded Sex Assigned at Female 09/12/2020 12:05 PM COORDINATE MEASURING MACHINE OPERATOR Legal Sex Female 3:26 AM COORDINATE MEASURING MACHINE OPERATOR Gender Identity Female 09/12/2020 12:05 PM COORDINATE MEASURING MACHINE OPERATOR Sexual Orientation Straight 12/19/2021 10 [...] suspected to have Coronavirus/COVID-19? No / Unsure 12/07/2022 7:00 AM CDT documented as of this encounter Plan of Treatment Upcoming Encounters Date Type Department Care Team (Late st Contact Info) Description 03/26/2025 11:00 AM CDT Therapy Visit [address] [phone] Jason Alvares MD [address] [place] [address] Chaya Castillo, OTR [address] [address] 03/29/2025 10:30 AM CDT Therapy Visit [facility] [address] [place] [phone] [place] [address] [place] [address] 04/02/2025 11:00 AM CDT Therapy Visit [address] [phone] Jason Alvares MD [address] [place] [address] Chaya Castillo OTR [facility] 150 [facility] [place] [address] 04/11/2025 12:30 PM CDT Office Visit [facility] [address] 4th [place] [phone] Omar Carmona MD [address] [place] [address] 04/12/2025 2:15 PM CDT [facility] [address] [place] [phone] Jason Alvares MD [address] [place] [address] Chaya Castillo OTR [facility] 150 [place] [address] 04/16/2025 11:00 AM CDT [facility] [address] [place] [phone] Jason Alvares MD [address] [place] [address] Chaya Castillo OTR [facility] 150 [place] [address] 04/23/2025 11:00 AM CDT Therapy Visit [facility] [address] [place] [phone] Jason Alvares MD [address] [place] [address] Chaya Castillo, OTR [facility] [address] [place] [address] 04/30/2025 11:00 AM CDT Therapy Visit [facility] 150 [place] [phone] Jason Alvares MD [address] [place] [address] 425815 Chaya Castillo, OTR [facility] 150 [place] [address] 05/15/2025 12:30 PM CDT Office Visit [address] [phone] Marquise Hanley MD [address] [place] [address] 06/08/2025 9:15 AM CDT Office Visit [facility] [address] [phone] Jignesh Mathias MD [address] [place] [address] 11/05/2025 1:45 PM CDT Office Visit [facility] [address] 3rd [place] [phone] Gavi Nieto PA-C Dermatology [address] [place] [address] [phone] documented as of this encounter Goals Goal [...] documented as of this encounter Care Teams Iron Guardrail Installer Relationship Specialty Start Date End Date Rio Jaquez MD [address] [place] [address] [phone] PCP - General Family Practice 12/02/10 07/13/24 Omar Carmona MD [address] [place] [address] [phone] PCP - General Family Medicine 07/14/24 Barry Kilpatrick MD [address] [place] [address] [id number] [place], [place] 796745 Neurology 07/19/14 Michelle Henderson I, TANIA Nurse Coordinator Neurology 07/19/14 Rio Jaquez MD [address] [place] [address] MD Family Practice 10/15/14 Jemima Jaramillo MD harpooner 11/20/14 Kelley Chin, TANIA [address] [phone] Nurse Coordinator Cardiology 11/04/15 Sydnee Saleem MD [address] [place] [address] 508 [place] [address] Cardiology 11/04/15 Karlene Moya MD 6 [place] [address] MD Ophthalmology 06/24/17 Wilbert Quintero OD 9 [place], [place] 847485 Optometry 06/24/17 Rod Gauthier DPM 9 [place], [place] 728[address] MD Floor Broker Primary Podiatric Medicine 06/21/18 Jan Mahmood MD [address] [place] [address] MD Gastroenterology 11/05/20 Brandt Quintana MD [address] [place] [address] Resident 11/05/20 Jan Mahmood MD [address] [place] [address] 00321 Assigned Gastroenterology Provider 12/01/20 Rio Jaquez MD 9 [facility] [place] [address] [place] [address] 517415 Assigned PCP 11/17/20 09/30/24 Dom Eason MD 717 [facility] [address] [place], [place] 736774 Internal Medicine 12/02/20 Jayla Plaza, RN Specialty Blackener Hepatology 01/09/21 02/13/24 Jaimie [place], RN Specialty Blackener Cardiology 10/28/21 Ruth Riddle, DPM, Podiatry/Foot and Ankle Surgery [address] [place] [address] Assigned Musculoskeletal Provider 11/30/21 09/30/23 Marquise Hanley MD [address] [place] [address] [phone] Endocrinology, Diabetes, and Metabolism 03/05/22 Vlad Ramey MD [address] [place] [address] 397455 Cardiovascular Disease 05/07/22 Joesph Crowe MD [address] [place] [address] [phone] Surgery 05/07/22 Luis Arrington MD [address] [place] [address] [phone] Assigned Neuroscience Provider 05/16/22 05/14/23 Michelle Padilla RN Specialty Blackener Cardiology 07/03/22 Vlad Ramey MD [address] [place] [address] 746325 Assigned Heart and Vascular Provider 07/25/22 05/28/23 Marquise Hanley MD [address] [place] [address] 411395 Assigned Endocrinology Provider 08/15/22 Dom Eason MD 717 [facility] 353 [place] [address] Assigned Nephrology Provider 11/28/22 02/19/23 Wagner Oliver MD [address] [place] [address] Critical Care 12/15/22 Laura Epperson NP 717 [facility] [address] [place] [address] Assigned Nephrology Provider 02/20/23 08/30/24 Thom Taveras MD [facility]note 2][address] [place] [address] Assigned Cancer Care Provider 02/06/23 08/20/23 Joesph Crowe MD [address] [place] [address] Surgery 03/17/23 Joesph Crowe MD [address] [place] [address] 50443 Assigned Surgical Provider 04/03/23 09/30/24 Adonay Haq MD [address] [place] [address] [phone] Internal Medicine 06/14/23OctoberDenilson MD [address] [facility] [address] [place] [address] Assigned Heart and Vascular Provider 05/29/23 11/28/24 Jason Alvares MD [address] [place] [address] Assigned Neuroscience Provider 05/15/23 11/28/24 Ruth Riddle, DPM, Podiatry/Foot and Ankle Surgery [address] [place] [address] [place] [address] Assigned Musculoskeletal Provider 10/22/23 Jignesh Mathias MD [address] [place] [address] 12[address] Gastroenterology 09/25/24 Adonay Haq MD [address] [place] [address] 7[address] Assigned PCP 10/01/24 12/28/24 Omar Carmona MD [address] [place] [address] [phone] Assigned PCP 12/29/24 Jason Alvares MD [address] [place] [address] Assigned Neuroscience Provider 12/29/24 Jignesh Mathias MD [address] [place] [address] 154815 Assigned Surgical Provider 12/29/24 Ayad Lopez, PhD LP [address] [place] [address] 555045 Assigned Behavioral Health Provider 02/28/25 Gavi Nieto PA-C [address] [place] [address] Physician Senior Web Engineer Dermatology 03/19/25 documented as of this encounter
--- OUTSIDE RECORDS SUMMARY | 2025-03-24 20:24 | XMS_ITS | Encounter Summary ---
Author Organization [facility] Address [address] [place] [address] Care Team Providers Care Director Business Systems Name Role Phone Rio Jaquez MD Primary Care Provider Barry Kilpatrick MD Unavailable Michelle Henderson RN Unavailable [phone] Rio Jaquez MD Unavailable [phone] Jemima Jaramillo MD Unavailable Unavai Kelley Bautista RN Unavailable [phone] Sydnee Saleem MD Unavailable [phone] Karlene Moya MD Unavailable [phone] Wilbert Quintero OD Unavailable [phone] Rod Gauthier DPM Unavailable +[phone] Nallely Hogue RN Unavailable Unavailable Larisa Vargas RN Unavailable Unavailable Francisco Lott MD Unavailable [phone] Greg Ortega MD Unavailable [phone] Jan Mahmood MD Unavailable [phone] Brandt Quintana MD Unavailable [phone] Jan Mahmood MD Unavailable Rio Jaquez [...] Ramey MD Unavailable Joesph Crowe MD Unavailable [phone] Luis Arrington MD Unavailable Michelle Padilla RN Unavailable Unavaila ble Vlad Ramey MD Unavailable Marquise Hanley MD Unavailable [phone] Dom Eason MD Unavailable Wagner Oliver MD Unavailable Laura Epperson NP Unavailable [phone] Thom Taveras MD Unavailable Joesph Crowe MD Unavailable [phone] Joesph Crowe MD Unavailable [phone] Adonay Haq MD Unavailable [phone] Denilson Srinivasan MD Unavailable [phone] Jason Alvares MD Unavailable Ruth RiddleM, Podiatry /Foot and Ankle Surgery Unavailable Omar Carmona MD Primary Care Provider [phone] Jignesh Mathias MD Unavailable Adonay Haq MD Unavailable [phone] Omar Carmona MD Unavailable [phone] Jason Alvares MD Unavailable Jignesh Mathias MD Unavailable Ayad Lopez PhD LP Unavailable [phone] Gavi Nieto-C Unavailable [phone] Encounter Details Date Type Department Care Team ([facility] Contact Info) Description 08/20/2021 [facility] Medical Advice Initial Department [facility] Social History Tobacco Use Types Packs/Day Years [...] Sex Assigned at Female 09/12/2020 12:05 PM PORTFOLIO LEAD Legal Sex Female 3:26 AM PORTFOLIO LEAD Gender Identity Female 09/12/2020 12:05 PM PORTFOLIO LEAD Sexual Orientation Straight 12/19/2021 10 :44 AM CDT Occupation Industry Job Start Date Job End Date on disability for FMS Not on file Not on file Not on file COVID-19 Exposure Response Date Recorded In the last month, have you been in contact with someone who was confirmed or suspected to have Coronavirus / COVID-19? No / Unsure 08/19/2021 10:58 AM PORTFOLIO LEAD documented as of this encounter Plan of Treatment Upcoming Encounters Date Type Department Care Team (Late Contact Info) Description 03/26/2025 11:00 AM CDT Therapy Visit [address] [phone] Jason Alvares MD [address] [place] [address] Chaya Castillo, OTR [address] [address] 03/29/2025 10:30 AM CDT Therapy Visit [facility] [address] [place] [phone] [place] [address] [place], [place] [phone] 04/02/2025 11:00 AM CDT Therapy Visit [address] [phone] Jason Alvares MD [address] [place] [address] Chaya Castillo, OTR [address] [address] 04/11/2025 12:30 PM CDT Office Visit [facility] [address] 4th [place] [address] Omar Carmona MD [address] [place] [address] [phone] 04/12/2025 2:15 PM CDT Therapy Visit [address] [phone] Jason Alvares MD [address] [place] [address] [address] Chaya Castillo OTR [facility] 150 [place] [address] 04/16/2025 11:00 AM CDT Therapy Visit [facility] [place] [address] Jason Alvares MD [address] [address] Chaya Castillo OTR [facility] 150 [place] [address] 04/23/2025 11:00 AM CDT Therapy Visit [facility] 150 [facility] [place] [address] Jason Alvares MD [address] [address] Chaya Castillo OTR [facility] 150 [place] [address] 04/30/2025 11:00 AM CDT Therapy Visit [facility] [address] [facility] [place] [address] Jason Alvares MD [address] [address] Chaya Castillo OTR [facility] 150 [place] [address] 05/15/2025 12:30 PM CDT Office Visit [address] [place] [phone] Marquise Hanley MD [address] [place] [address] 06/08/2025 9:15 AM CDT Office Visit [facility] [address] [phone] Jignesh Mathias MD [address] [place] [address] 11/05/2025 1:45 PM CDT Office Visit [facility] [address] 3rd [place] [phone] Gavi Nieto PA-C Dermatology [address] [place] [address] [phone] documented as of this encounter Goals Goal [...] Depression Total Score: 12 021 9:43 AM PORTFOLIO LEAD documented as of this encounter Care Teams Director Business Systems Relationship Specialty Start Date End Date Rio Jaquez MD [address] [place] [address] PCP - General Family Practice 12/02/10 07/13/24 Omar Carmona MD [address] [place] [address] 469585 PCP - General Family Medicine 07/14/24 Barry Kilpatrick MD [address] [place] [address] [id number] [place] [address] Neurology 07/19/14 Michelle Henderson I, RN Nurse Coordinator Neurology 07/19/14 Rio Jaquez MD [address] [place] [address] [address] [place], [place] [phone] Family Practice 10/15/14 Jemima Jaramillo MD metal turner 11/20/14 Kelley Chin RN [address] 923745 Nurse Coordinator Cardiology 11/04/15 Sydnee Saleem MD [address] [place] [address] 508 [place] [address] Cardiology 11/04/15 Karlene Moya MD [address] [place] [address] 064925 Ophthalmology 06/24/17 Wilbert Quintero, OD [address] [place] [address] 737225 Optometry 06/24/17 Rod Gauthier DPM [address] [place] [address] [phone] Production Zone Leader Primary Podiatric Medicine 06/21/18 Nallely Hogue, RN Registered Nurse 02/20/19 11/23/22 Larisa Vargas, TANIA Specialty Vest Presser Cardiology 04/18/19 03/06/22 Francisco Lott MD [address] [address] Assigned Rheumatology Provider 05/31/20 12/13/21 Greg Ortega MD [address] [place] [address] Assigned Surgical Provider 06/23/20 12/06/21 Jan Mahmood MD 6 [facility] 2A [place] [address] Gastroenterology 11/05/20 Brandt Quintana MD [address] [place] [address] Resident 11/05/20 Jan Mahmood MD [address] [place] [address] Assigned Gastroenterology Provider 12/01/20 Rio Jaquez MD [address] [address] Assigned PCP 11/17/20 09/30/24 Dom Eason MD 717 [facility] 353 [place] [address] Internal Medicine 12/02/20 Jayla Plaza, RN Specialty Vest Presser Hepatology 01/09/21 02/13/24 Sydnee Saleem MD 6550 [facility] [address] [place] [address] Assigned Heart and Vascular Provider 02/02/21 07/24/22 Phan Coello MD Assigned Neuroscience Provider 02/21/21 11/22/21 [place] [address] [place] [address] Assigned Infectious Disease Provider 02/21/21 03/06/22 Dom Eason MD [address] [place] [address] 520924 Assigned Nephrology Provider 04/20/21 01/02/22 Jaimie [place], TANIA Specialty Vest Presser Cardiology 10/28/21 Ruth Riddle DPM, Podiatry/Foot and Ankle Surgery [address] [address] Assigned Musculoskeletal Provider 11/30/21 09/30/23 Luis Arrington MD [address] [place] [address] [phone] Assigned Neuroscience Provider 11/23/21 01/02/22 Jason Alvares MD [address] [place] [address] 295 [place], [place] [phone] Assigned Neuroscience Provider 01/03/22 05/15/22 Marquise Hanley MD [address] [place] [address] 747475 Endocrinology, Diabetes, and Metabolism 03/05/22 Vlad Ramey MD [address] [place] [address] Cardiovascular Disease 05/07/22 Joesph Crowe MD [address] [place] [address] 9[address]73 Surgery 05/07/22 Luis Arrington MD [address] [place] [address]908 Assigned Neuroscience Provider 05/16/22 05/14/23 Michelle Padilla RN Specialty Vest Presser Cardiology 07/03/22 Vlad Ramey MD [address] [place] [address] 67991 Assigned Heart and Vascular Provider 07/25/22 05/28/23 Marquise Hanley MD [address] [place] [address]93 Assigned Endocrinology Provider 08/15/22 Dom Eason MD [address] [place] [address] 35[address] Assigned Nephrology Provider 11/28/22 02/19/23 Wagner Oliver MD [address] [place] [address] Critical Care 12/15/22 Laura Epperson NP [address] [place], [place] [address] [place] [address] Assigned Nephrology Provider 02/20/23 08/30/24 Thom Taveras MD [facility] [address] R[address] [place] [address] Assigned Cancer Care Provider 02/06/23 08/20/23 Joesph Crowe MD [address] [place] [address] MD Surgery 03/17/23 Joesph Crowe MD [address] [place] [address] Assigned Surgical Provider 04/03/23 09/30/24 Adonay Haq MD [address] [place] [address] 96994 Internal Medicine 06/14/23OctoberDenilson MD [address] [facility] [address] [place] [address] Assigned Heart and Vascular Provider 05/29/23 11/28/24 Jason Alvares MD [address] [place] [address] 295 [place] [address] Assigned Neuroscience Provider 05/15/23 11/28/24 Ruth Riddle DPM, Podiatry/Foot and Ankle Surgery [address] [place] [address] Assigned Musculoskeletal Provider 10/22/23 Jignesh Mathias MD [address] [place] [address] 22845 Gastroenterology 09/25/24 Adonay Haq MD [address] [place] [address] [phone] Assigned PCP 10/01/24 12/28/24 Omar Carmona MD [address] [place] [address] [phone] Assigned PCP 12/29/24 Jason Alvares MD [address] [place] [address] [phone] Assigned Neuroscience Provider 12/29/24 Jignesh Mathias MD [address] [place] [address] 419015 Assigned Surgical Provider 12/29/24 Ayad Lopez, PhD LP [address] [place] [address] 839535 Assigned Behavioral Health Provider 02/28/25 Gavi Nieto, PA-C [address] [place] [address] [phone] Physician Mechanical Developer Prover Dermatology 03/19/25 documented as of this encounter
--- OUTSIDE RECORDS SUMMARY | 2025-03-24 20:24 | XMS_ITS | Encounter Summary ---
Author Organization [place] Address [address] [place] [address] Care Team Providers Care Merchant Mariner Name Role Phone Rio Jaquez MD Primary Care Provider Barry Kilpatrick MD Unavailable Michelle Henderson I RN Unavailable [phone] Rio Jaquez MD Unavailable +[phone] Jemima Jaramillo MD Unavailable Unavai Kelley Bautista RN Unavailable [phone] Sydnee Saleem MD Unavailable +[phone] Karlene Moya MD Unavailable Wilbert Quintero OD Unavailable +[phone] Rod Gauthier DPM Unavailable +[phone] Jan Mahmood MD Unavailable +[phone] Brandt Quintana MD Unavailable Jan Mahmood MD Unavailable +[phone] Rio Jaquez MD Unavailable +[phone] Dom Eason MD Unavailable Jayla Plaza RN [...] Unavailable +[phone] Dom Eason MD Unavailable +[phone] Wagner Oliver MD Unavailable +[phone] Laura Epperson NP Unavailable +[phone] Thom Taveras MD Unavailable +[phone] Joesph Crowe MD Unavailable +[phone] Joesph Crowe MD Unavailable +[phone] Adonay Haq MD Unavailable +1- Denilson Srinivasan MD Unavailable + [phone] Jason Alvares MD Unavailable Ruth Riddle DPM, Podiatry /Foot and Ankle Surgery Unavailable Omar Carmona MD Primary Care Provider [phone] Jignesh Mathias MD Unavailable Adonay Haq MD Unavailable +1- Omar Carmona MD Unavailable +[phone] Jason Alvares MD Unavailable Jignesh Mathias MD Unavailable Ayad Lopez PhD LP Unavailable [phone] Gavi Nieto PA-C Unavailable Encounter Details Date Type Department Care Team (Late st Contact Info) Description 01/27/2023 MyC Medical Advice [facility] [address] 4th [place] [address] Rio Jaquez MD [address] [place] [address] 4 [place] [address] Social History Tobacco Use Types [...] than three times a week 08/27/2021 Attends Protestant Services Not on file 08/27 Do you belong to any clubs o r organizations such as denominational groups, unions, fraternal or athletic groups, or [...] Answer Date Recorded PHQ-2 Score 1 01/27/2023 [facility] of Occupat ional Health - Occupational Stress [...] place to sleep or slept in a long term (including now)? No 08/27/2021 Comments No Sex and Gender Information Value Date Recorded Sex Assigned at Female 09/12/2020 12:05 PM SOLUTIONS MARKET CONSULTANT Legal Sex Female 3:26 AM SOLUTIONS MARKET CONSULTANT Gender Identity Female 09/12/2020 12:05 PM SOLUTIONS MARKET CONSULTANT Sexual Orientation Straight 12/19/2021 10 :44 [...] Description 03/26/2025 11:00 AM CDT Therapy Visit [address] [phone] Jason Alvares MD [address] [place] [address] Chaya Castillo, OTR [address] [address] 03/29/2025 10:30 AM CDT Therapy Visit [facility] [address] [place] [phone] [place] [address] MICHAEL [address] [place] [address] 04/02/2025 11:00 AM CDT Therapy Visit [address] [phone] Jason Alvares MD [address] [place] [phone] Chaya Castillo OTR [facility] 150 [facility] [address] 04/11/2025 12:30 PM CDT Office Visit [facility] [address] 4th [place] [phone] Omar Carmona MD [address] [place] [address] 04/12/2025 2:15 PM CDT [facility] 150 [place] [address] Jason Alvares MD [address] [place] [address] Chaya [facility]illo [facility] 150 [facility] [address] 04/16/2025 11:00 AM CDT Therapy [facility] [address] [facility] [place] [phone] Jason Alvares MD [address] [place] [address] Chaya Castillo OTR [facility] 150 [place] [address] 04/23/2025 11:00 AM CDT Therapy Visit [facility] 150 [place] [phone] Jason Alvares MD [address] [place] [address] Chaya Castillo, OTR [facility] 150 [place] [address] 04/30/2025 11:00 AM CDT Therapy Visit [facility] 150 [place] [phone] Jason Alvares MD [address] [place] [address] Chaya Castillo OTR [facility] 150 [place] [address] 05/15/2025 12:30 PM CDT Office Visit [address] [phone] Marquise Hanley MD [address] [place] [address] 06/08/2025 9:15 AM CDT Office Visit [facility] Hepatology Clinic [address] [phone] Jignesh Mathias MD [address] [place] [address] 11/05/2025 1:45 PM CDT Office Visit [facility] Dermatology Clinic [address] 3rd [place] [address] Gavi Nieto PA-C Dermatology [address] [place] [address] [phone] documented as of this encounter Goals Goal [...] documented as of this encounter Care Teams Merchant Mariner Relationship Specialty Start Date End Date Rio Jaquez MD [address] [place] [address] 455335 PCP - General Family Practice 12/02/10 07/13/24 Omar Carmona MD [address] [place] [address] PCP - General Family Medicine 07/14/24 Barry Kilpatrick MD [address] [place] [address] [id number] [place], [place] [phone] Neurology 07/19/14 Michelle Henderson RN Nurse Coordinator Neurology 07/19/14 Rio Jaquez MD [address] [place] [address] 653465 Family Practice 10/15/14 Jemima Jaramillo MD duct installer 11/20/14 Kelley Chin, TANIA [address] [phone] Nurse Coordinator Cardiology 11/04/15 Sydnee Saleem MD [address] [place] [address] 508 [place] [address] Cardiology 11/04/15 Karlene Moya MD 6 [place] [address] MD Ophthalmology 06/24/17 Wilbert Quintero, OD 9 [place], [place] 665415 Optometry 06/24/17 Rod Gauthier DPM [address] [place] [address] 487485 MD Professor Of Theater Primary Podiatric Medicine 06/21/18 Jan Mahmood MD [address] [place] [address] 2[address] [place] [address] MD Gastroenterology 11/05/20 Brandt Quintana MD [address] [place] [address] Resident 11/05/20 Jan Mahmood MD [address] [place] [address] Assigned Gastroenterology Provider 12/01/20 Rio Jaquez MD 909 [facility] [place] [address] [place] [address] 052735 Assigned PCP 11/17/20 09/30/24 Dom Eason MD 717 [facility] MICHAEL 353 [place], [place] 072884 Internal Medicine 12/02/20 Jayla Plaza, RN Specialty Felt Finisher Hepatology 01/09/21 02/13/24 Jaimie Vernon, RN Specialty Felt Finisher Cardiology 10/28/21 Ruth Riddle, DPM, Podiatry/Foot and Ankle Surgery [address] [place] [address] Assigned Musculoskeletal Provider 11/30/21 09/30/23 Marquise Hanley MD [address] [place] [address] [phone] Endocrinology, Diabetes, and Metabolism 03/05/22 Vlad Ramey MD [address] [place] [address] 216615 Cardiovascular Disease 05/07/22 Joesph Crowe MD [address] [place] [address] [phone] Surgery 05/07/22 Luis Arrington MD [address] [place] [address] 238535 Assigned Neuroscience Provider 05/16/22 05/14/23 Michelle Padilla RN Specialty Felt Finisher Cardiology 07/03/22 Vlad Ramey MD [address] [place] [address] 249695 Assigned Heart and Vascular Provider 07/25/22 05/28/23 Marquise Hanley MD [address] [place] [address] 376585 Assigned Endocrinology Provider 08/15/22 Dom Eason MD 717 [facility] 353 [place] [address] Assigned Nephrology Provider 11/28/22 02/19/23 Wagner Oliver MD [address] [place] [address] Critical Care 12/15/22 Laura Epperson NP 717 [facility]MENT 1932 [place] [address] Assigned Nephrology Provider 02/20/23 08/30/24 Thom Taveras MD [facility] [address] [place] [address] Assigned Cancer Care Provider 02/06/23 08/20/23 Joesph Crowe MD [address] [place] [address] Surgery 03/17/23 Joesph Crowe MD [address] [place] [address] 66[address] Assigned Surgical Provider 04/03/23 09/30/24 Adonay Haq MD [address] [place] [address] 178425 Internal Medicine 06/14/23OctoberDenilson MD 6405 [facility] [address] [place] [address] Assigned Heart and Vascular Provider 05/29/23 11/28/24 Jason Alvares MD [address] [place] [address] Assigned Neuroscience Provider 05/15/23 11/28/24 Ruth Riddle DPM, Podiatry/Foot and Ankle Surgery [address] RODRIGUEZ [address] [place] [address] 8[address] Assigned Musculoskeletal Provider 10/22/23 Jignesh Mathias MD [address] [place] [address] 703975 Gastroenterology 09/25/24 Adonay Haq MD [address] [place] [address] 47831 Assigned PCP 10/01/24 12/28/24 Omar Carmona MD [address] [place] [address] 291325 Assigned PCP 12/29/24 Jason Alvares MD [address] [place] [address] Assigned Neuroscience Provider 12/29/24 Jignesh Mathias MD [address] [place] [address] 476055 Assigned Surgical Provider 12/29/24 Ayad Lopez, PhD LP [address] [place] [address] 191655 Assigned Behavioral Health Provider 02/28/25 Gavi Nieto PA-C [address] [place] [address] Physician Gang Hemstitching Machine Operator Dermatology 03/19/25 documented as of this encounter
--- OUTSIDE RECORDS SUMMARY | 2025-03-24 20:24 | XMS_ITS | Encounter Summary ---
Author Organization [place] Address [address] [place] [address] Care Team Providers Care Reeling Machine Setup Operator Name Role Phone Rio Jaquez MD Primary Care Provider Barry Kilpatrick MD Unavailable Michelle Henderson I RN Unavailable [phone] Rio Jaquez MD Unavailable +[phone] Jemima Jaramillo MD Unavailable Unavai Kelley Bautista RN Unavailable [phone] Sydnee Saleem MD Unavailable [phone] Karlene Moya MD Unavailable Wilbert Quintero OD Unavailable +[phone] Rod Gauthier DPM Unavailable Jan Mahmood MD Unavailable [phone] Brandt Quintana MD Unavailable [phone] Jan Mahmood MD Unavailable +[phone] Rio Jaquez MD Unavailable +[phone] Dom Eason MD Unavailable Jayla Plaza RN [...] Unavailable +[phone] Dom Eason MD Unavailable +[phone] Wagner Oliver MD Unavailable +[phone] Laura Epperson NP Unavailable +[phone] Thom Taveras MD Unavailable [phone] Joesph Crowe MD Unavailable +[phone] Joesph Crowe MD Unavailable +[phone] Adonay Haq MD Unavailable +[phone] Denilson Srinivasan MD Unavailable + [phone] Jason Alvares MD Unavailable Ruth Riddle DPM, Podiatry /Foot and Ankle Surgery Unavailable Omar Carmona MD Primary Care Provider [phone] Jignesh Mathias MD Unavailable Adonay Haq MD Unavailable +1- Omar Carmona MD Unavailable +[phone] Jason Alvares MD Unavailable Jignesh Mathias MD Unavailable Ayad Lopez PhD LP Unavailable +[phone] Gavi Nieto PA-C Unavailable [phone] Encounter Details Date Type Department Care Team (Late st Contact Info) Description 11/30/2022 MyC Medical Advice [facility] Heart [address] [address] Jaimie Vernon RN Social History Tobacco Use Types Packs/Day [...] any clubs o r organizations such as orthodox groups, unions, fraternal or athletic groups, or [...] Answer Date Recorded PHQ-2 Score 2 10/21/2022 [facility] of Occupat ional Health - Occupational Stress [...] place to sleep or slept in a fci (including now)? No 08/27/2021 Comments No Sex and Gender Information Value Date Recorded Sex Assigned at Female 09/12/2020 12:05 PM COMPUTER LAB AIDE Legal Sex Female 3:26 AM COMPUTER LAB AIDE Gender Identity Female 09/12/2020 12:05 PM COMPUTER LAB AIDE Sexual Orientation Straight 12/19/2021 10 :44 AM [...] Description 03/26/2025 11:00 AM CDT Therapy Visit [facility] 150 [place] [phone] Jason Alvares MD [address] [place] [address] 865705 Chaya Castillo OTR F[facility] [address] [address] 03/29/2025 10:30 AM CDT Therapy Visit [facility] [place] [address] [place] [phone] [place] [address]EL [address] [place] [address] 04/02/2025 11:00 AM CDT Therapy Visit [facility] 150 [place] [phone] Jason Alvares MD [address] [place] [address] 901785 Chaya Castillo OTR [facility] 150 [place] [address] 04/11/2025 12:30 PM CDT Office Visit [facility] Primary Care [address] 4th [place] [phone] Omar Carmona MD [address] [place] [address] 04/12/2025 2:15 PM CDT Therapy Visit [facility] 150 [facility] [place] [phone] Jason Alvares MD [address] [place] [address] Chaya Castillo OTR [facility] 150 [place] [address] 04/16/2025 11:00 AM CDT Therapy Visit [facility] [address] [place] [phone] Jason Alvares MD [address] [place] [address] Chaya Castillo OTR [facility] 150 [place] [address] 04/23/2025 11:00 AM CDT Therapy Visit [facility] 150 [place] [address] Jason Alvares MD [address] [place] [address] Chaya Castillo OTR [facility] 150 [place] [address] 04/30/2025 11:00 AM CDT Therapy Visit [facility] 150 [place] [phone] Jason Alvares MD 420 [facility] 295 [place], [place] 482645 Chaya Castillo, OTR [address] [address] 05/15/2025 12:30 PM CDT Office Visit [address] [phone] Marquise Hanley MD [address] [place] [address] 447195 06/08/2025 9:15 AM CDT Office Visit [facility] Hepatology Clinic [address] [phone] Jignesh Mathias MD [address] [place] [address] 323945 11/05/2025 1:45 PM CDT Office Visit [facility] Dermatology Clinic [address] 3rd [place] [address] Gavi Nieto PA-C Dermatology [address] [place] [address] [phone] documented as of this encounter Goals Goal [...] documented as of this encounter Care Teams Reeling Machine Setup Operator Relationship Specialty Start Date End Date Rio Jaquez MD [address] [place] [address] PCP - General Family Practice 12/02/10 07/13/24 Omar Carmona MD [address] [place] [address]886 PCP - General Family Medicine 07/14/24 Barry Kilpatrick MD [address] [place] [address] [id number] [place], [place] 595795 Neurology 07/19/14 Michelle Henderson RN Nurse Coordinator Neurology 07/19/14 Rio Jaquez MD [address] [place] [address] 677545 Family Practice 10/15/14 Jemima Jaramillo MD alignment technician 11/20/14 Kelley Chin, TANIA [address] 644855 Nurse Coordinator Cardiology 11/04/15 Sydnee Saleem MD [address] [place] [address] 508 [place], [place] 392515 Cardiology 11/04/15 Karlene Moya MD [address] [place] [address] 827615 Ophthalmology 06/24/17 Wilbert Quintero, OD 9 [place] [address] Optometry 06/24/17 Rod Gauthier DPM [address] [place] [address] [facility] Primary Podiatric Medicine 06/21/18 Jan Mahmood MD [address] [place] [address] 2A [place] [address] Gastroenterology 11/05/20 Brandt Quintana MD 1414 [place] [address] Resident 11/05/20 Jan Mahmood MD [address] [place] [address] Assigned Gastroenterology Provider 12/01/20 Rio Jaquez MD 9 [facility] 4 [place] [address] Assigned PCP 11/17/20 09/30/24 Dom Eason MD 717 [facility] 353 [place] [address] Internal Medicine 12/02/20 Jayla Plaza, RN Specialty Medication Coordinator Hepatology 01/09/21 02/13/24 Jaimie Vernon, TANIA Specialty Medication Coordinator Cardiology 10/28/21 Ruth Riddle DPM, Podiatry/Foot and Ankle Surgery [address] R[address]RIGUEZ [address] [place] [address] Assigned Musculoskeletal Provider 11/30/21 09/30/23 Marquise Hanley MD [address] [place] [address] Endocrinology, Diabetes, and Metabolism 03/05/22 Vlad Ramey MD [address] [place] [address] 40021 Cardiovascular Disease 05/07/22 Joesph Crowe MD [address] [place] [address] 89240 Surgery 05/07/22 Luis Arrington MD [address] [place] [address] 58904 Assigned Neuroscience Provider 05/16/22 05/14/23 Michelle Padilla RN Specialty Medication Coordinator Cardiology 07/03/22 Vlad Ramey MD [address] [place] [address] 00499 Assigned Heart and Vascular Provider 07/25/22 05/28/23 Marquise Hanley MD [address] [place] [address] 64231 Assigned Endocrinology Provider 08/15/22 Dom Eason MD [address] [place] [address] 30627 Assigned Nephrology Provider 11/28/22 02/19/23 Wagner Oliver MD [address] [place] [address] Critical Care 12/15/22 Laura Epperson NP 717 [facility] 1932 [place] [address] Assigned Nephrology Provider 02/20/23 08/30/24 Thom Taveras MD [address], [address] [place] [address] Assigned Cancer Care Provider 02/06/23 08/20/23 Joesph Crowe MD [address] [place] [address] [phone] Surgery 03/17/23 Joesph Crowe MD 909 [place] [address] Assigned Surgical Provider 04/03/23 09/30/24 Adonay Haq MD 9 [place], [place] [phone] Internal Medicine 06/14/23OctoberDenilson MD [address] [facility] [address] [place] [address] Assigned Heart and Vascular Provider 05/29/23 11/28/24 Jason Alvares MD 420 [facility] 295 [place] [address] Assigned Neuroscience Provider 05/15/23 11/28/24 Ruth Riddle DPM, Podiatry/Foot and Ankle Surgery [address] R[address]IGUEZ [address] [place] [address] 67534 Assigned Musculoskeletal Provider 10/22/23 Jignesh Mathias MD [address] [place] [address] 42435 Gastroenterology 09/25/24 Adonay Haq MD [address] [place] [address] Assigned PCP 10/01/24 12/28/24 Omar Carmona MD [address] [place] [address] [phone] Assigned PCP 12/29/24 Jason Alvares MD [address] [place] [address] 171725 Assigned Neuroscience Provider 12/29/24 Jignesh Mathias MD [address] [place] [address] 54490 Assigned Surgical Provider 12/29/24 Ayad Lopez, PhD LP [address] [place] [address] 346505 Assigned Behavioral Health Provider 02/28/25 Gavi Nieto PANavinC [address] [place] [address] [phone] Physician Cupola Operator Insulation Dermatology 03/19/25 documented as of this encounter
--- OUTSIDE RECORDS SUMMARY | 2025-03-24 20:24 | XMS_ITS | Encounter Summary ---
Author Organization [facility] Address [address] [place] [address] 76943 Care Team Providers Care Shotblast Equipment Operator Name Role Phone Rio Jaquez MD Primary Care Provider Barry Kilpatrick MD Unavailable Michelle Henderson RN Unavailable [phone] Rio Jaquez MD Unavailable +[phone] Jemima Jaramillo MD Unavailable Unavai Kelley Bautista RN Unavailable +[phone] Sydnee Saleem MD Unavailable +[phone] Karlene Moya MD Unavailable +[phone] Wilbert Quintero OD Unavailable +[phone] Rod Gauthier DPM Unavailable +[phone] Nallely Hogue RN Unavailable Unavailable Jan Mahmood MD Unavailable +[phone] Brandt Quintana MD Unavailable Jan Mahmood MD Unavailable +[phone] Rio Jaquez MD Unavailable +[phone] Dom Eason MD Unavailable +[phone] Jayla Plaza RN Unavailable +[phone] Jaimie Vernon RN Unavailable Unavailable Ruth Riddle DPM, Podiatry /Foot and Ankle Surgery Unavailable Marquise Hanley MD Unavailable +[phone] Vlad Ramey MD Unavailable +[phone] Joesph Crowe MD Unavailable +[phone] Luis Arrington MD Unavailable +[phone] Michelle Padilla RN Unavailable Unavaila ble Vlad Ramey MD Unavailable +[phone] Marquise Hanley MD Unavailable +[phone] Dom Eason MD Unavailable +[phone] Wagner Oliver MD Unavailable +[phone] Laura Epperson NP Unavailable +[phone] Thom Taveras MD Unavailable +[phone] Joesph Crowe MD Unavailable +[phone] Joesph Crowe MD Unavailable +[phone] Adonay Haq MD Unavailable +[phone] Denilson Srinivasan MD Unavailable + [phone] Jason Alvares MD Unavailable Ruth Riddle DPM, Podiatry /Foot and Ankle Surgery Unavailable Omar Carmona MD Primary Care Provider +[phone] Jignesh Mathias MD Unavailable Adonay Haq MD Unavailable +1- Omar Carmona MD Unavailable +[phone] Jason Alvares MD Unavailable Jignesh Mathias MD Unavailable Ayad Lopez PhD LP Unavailable +[phone] Gavi Nieto PA-C Unavailable +[phone] Encounter Details Date Type Department Care Team (Late st Contact Info) Description 10/22/2022 MyC Medical Advice [facility] Heart [address] [address] Jaimie Vernon RN Social History [...] than three times a week 08/27/2021 Attends Holiness Services Not on file 08/27 Do you belong to any clubs o r organizations such as judaism groups, unions, fraternal or athletic groups, or [...] Answer Date Recorded PHQ-2 Score 2 10/21/2022 [facility] of Occupat ional Health - [...] place to sleep or slept in a prison (including now)? No 08/27/2021 Comments No Sex and Gender Information Value Date Recorded Sex Assigned at Female 09/12/2020 12:05 PM HVAC ESTIMATOR Legal Sex Female 3:26 AM HVAC ESTIMATOR Gender Identity Female 09/12/2020 12:05 PM HVAC ESTIMATOR Sexual Orientation Straight 12/19/2021 10 :44 AM [...] suspected to have Coronavirus/COVID-19? No / Unsure 10/21/2022 10:09 AM CDT documented as of this encounter Plan of Treatment Upcoming Encounters Date Type Department Care Team (Late st Contact Info) Description 03/26/2025 11:00 AM CDT Therapy Visit [address] [phone] Jason Alvares MD [address] [place] [address] [phone] Chaya Castillo OTR [facility] [address] 979877 03/29/2025 10:30 AM CDT Therapy Visit [facility] Special[facility] [place] [address] [facility] [address] [place] [phone] [place] [address]HAEL [address] [place], [place] [phone] 04/02/2025 11:00 AM CDT Therapy Visit [address] [phone] Jason Alvares MD [address] [place] [address] [phone] Castillo, Chaya A, OTR [facility] [address] [place] [address] 04/11/2025 12:30 PM CDT Office Visit [facility] Primary Care Clinic [address] 4th [place] [phone] Omar Carmona MD [address] [place] [address] 04/12/2025 2:15 PM CDT Therapy [facility] 150 [place] [phone] Jason Alvares MD [address] [place] [address] Chaya Castillo [facility]TR [facility] 150 [facility] [place] [address] 04/16/2025 11:00 AM CDT [facility] 150 [facility] [place] [phone] Jason Alvares MD [address] [place] [address] Chaya Castillo OTR [facility] [place] [address] [place] [address] 04/23/2025 11:00 AM CDT Therapy Visit [facility] 150 [facility] [place] [phone] Jason Alvares MD [address] [place] [address] Chaya Castillo OTR [facility] [place] [address] [place] [address] 04/30/2025 11:00 AM CDT Therapy Visit [facility] Rehabilitation Services [address] [phone] Jason Alvares MD 420 [facility] 295 [place] [address] Chaya Castillo, OTR [facility] 150 [place] [address] 05/15/2025 12:30 PM CDT Office Visit [address] [phone] Marquise Hanley MD [address] [place] [address] 855765 06/08/2025 9:15 AM CDT Office Visit [facility] Hepatology Clinic [address] [phone] Jignesh Mathias MD [address] [place] [address] 790835 11/05/2025 1:45 PM CDT Office Visit [facility] Dermatology Clinic [address] 3rd [place] [address] Gavi Nieto PA-C Dermatology [address] [place] [address] documented as of this encounter Goals Goal [...] documented as of this encounter Care Teams Shotblast Equipment Operator Relationship Specialty Start Date End Date Rio Jaquez MD [address] [place] [address] 23239 PCP - General Family Practice 12/02/10 07/13/24 Omar Carmona MD [address] [place] [address] 22101 PCP - General Family Medicine 07/14/24 Barry Kilpatrick MD [address] [place] [address] [id number] [place] [address] Neurology 07/19/14 Michelle Henderson I, TANIA Nurse Coordinator Neurology 07/19/14 Rio Jaquez MD [address] [place] [address] Family Practice 10/15/14 Jemima Jaramillo MD district loss prevention manager 11/20/14 Kelley Chin, TANIA [address] [phone] Nurse Coordinator Cardiology 11/04/15 Sydnee Saleem MD [address] [place] [address] 508 [place], [place] 945995 Cardiology 11/04/15 Karlene Moya MD 516 [place] [address] MD Ophthalmology 06/24/17 Wilbert Quintero, OD 9 [place] [address] Optometry 06/24/17 Rod Gauthier DPM [address] [place] [address] 80022 Gourmet Coffee Attendant Primary Podiatric Medicine 06/21/18 Nallely Hogue, RN Registered Nurse 02/20/19 11/23/22 Jan Mahmood MD [address] [place] [address] 2[address] [place], [place] 670175 MD Gastroenterology 11/05/20 Brandt Quintana MD [facility]4 [place] [address] Resident 11/05/20 Jan Mahmood MD [address] [address] 316865 Assigned Gastroenterology Provider 12/01/20 Rio Jaquez MD 9 [facility] 4 [place], [place] 682495 Assigned PCP 11/17/20 09/30/24 Dom Eason MD 717 [facility] 353 [place], [place] 827754 Internal Medicine 12/02/20 Jayla Plaza, RN Specialty Bicycle Taxi Driver Hepatology 01/09/21 02/13/24 Jaimie Vernon, TANIA Specialty Bicycle Taxi Driver Cardiology 10/28/21 Ruth Riddle DPM, Podiatry/Foot and Ankle Surgery [address] [place] [address] Assigned Musculoskeletal Provider 11/30/21 09/30/23 Marquise Hanley MD [address] [place] [address] 481965 Endocrinology, Diabetes, and Metabolism 03/05/22 Vlad Ramey MD [address] [place] [address] 332845 Cardiovascular Disease 05/07/22 Joesph Crowe MD [address] [place] [address] 669035 Surgery 05/07/22 Luis Arrington MD [address] [place] [address] 14173 Assigned Neuroscience Provider 05/16/22 05/14/23 Michelle Padilla RN Specialty Bicycle Taxi Driver Cardiology 07/03/22 Vlad Ramey MD [address] [place] [address] 660645 Assigned Heart and Vascular Provider 07/25/22 05/28/23 Marquise Hanley MD [address] [place] [address] 72690 Assigned Endocrinology Provider 08/15/22 Dom Eason MD 717 [facility] 353 [place] [address] Assigned Nephrology Provider 11/28/22 02/19/23 Wagner Oliver MD [address] [place] [id number] Critical Care 12/15/22 Laura Epperson NP 717 [facility] 1932 [place] [address] Assigned Nephrology Provider 02/20/23 08/30/24 Thom Taveras MD [facility] [address] [place] [address] Assigned Cancer Care Provider 02/06/23 08/20/23 Joesph Crowe MD [address] [place] [address] 999075 Surgery 03/17/23 Joesph Crowe MD [address] [place] [address] 75290 Assigned Surgical Provider 04/03/23 09/30/24 Adonay Haq MD [address] [place] [address] 126265 Internal Medicine 06/14/23OctoberDenilson MD 6405 [facility] [address] [place] [address] Assigned Heart and Vascular Provider 05/29/23 11/28/24 Jason Alvares MD 420 [facility] 295 [place], [place] 892545 Assigned Neuroscience Provider 05/15/23 11/28/24 Ruth Riddle, DPM, Podiatry/Foot and Ankle Surgery [address] RODRIGUEZ [address] [place] [address] 06932 Assigned Musculoskeletal Provider 10/22/23 Jignesh Mathias MD [address] [place] [address] 735265 Gastroenterology 09/25/24 Adonay Haq MD [address] [place] [address] 294355 Assigned PCP 10/01/24 12/28/24 Omar Carmona MD 9 [place], [place] 213735 Assigned PCP 12/29/24 Jason Alvares MD 420 [facility] 295 [place], [place] 947175 Assigned Neuroscience Provider 12/29/24 Jignesh Mathias MD [address] [place] [address] 38183 Assigned Surgical Provider 12/29/24 Ayad Lopez, PhD LP [address] [place] [address] 06337 Assigned Behavioral Health Provider 02/28/25 Gavi Nieto PA-C 500 [place], [place] 510675 Physician Bonsai Culturist Dermatology 03/19/25 documented as of this encounter
--- OUTSIDE RECORDS SUMMARY | 2025-03-24 20:24 | XMS_ITS | Encounter Summary ---
Author Organization [facility] Address [address] [place] [address] 41897 Care Team Providers Care Dye House Wheel Operator Name Role Phone Rio Jaquez MD Primary Care Provider Barry Kilpatrick MD Unavailable Michelle Henderson I RN Unavailable [phone] Rio Jaquez MD Unavailable +[phone] Jemima Jaramillo MD Unavailable Unavai Kelley Bautista RN Unavailable [phone] Sydnee Saleem MD Unavailable +[phone] Karlene Moya MD Unavailable +[phone] Wilbert Quintero OD Unavailable +[phone] Rod Gauthier DPM Unavailable Jan Mahmood MD Unavailable [phone] Brandt Quintana MD Unavailable Jan Mahmood MD Unavailable +[phone] Rio Jaquez MD Unavailable +[phone] Dom Eason MD Unavailable Jayla Plaza RN [...] Unavailable +[phone] Dom Eason MD Unavailable +[phone] Wagner Oliver MD Unavailable +[phone] Laura Epperson NP Unavailable +[phone] Thom Taveras MD Unavailable +[phone] Joesph Crowe MD Unavailable +[phone] Joesph Crowe MD Unavailable +[phone] Adonay Haq MD Unavailable +[phone] Denilson Srinivasan MD Unavailable + [phone] Jason Alvares MD Unavailable Ruth Riddle DPM, Podiatry /Foot and Ankle Surgery Unavailable Omar aCrmona MD Primary Care Provider [phone] Jignesh Mathias MD Unavailable Adonay Haq MD Unavailable +1- Omar Carmona MD Unavailable +[phone] Jason Alvares MD Unavailable Jignesh Mathias MD Unavailable Ayad Lopez PhD LP Unavailable +[phone] Gavi NietoC Unavailable [phone] Encounter Details Date Type Department Care Team (Late st Contact Info) Description 02/04/2023 MyC Medical Advice [facility] Nephrology Clinic [address] [address] Pancho Locke Social History Tobacco Use Types Packs/Day Years [...] than three times a week 08/27/2021 Attends Sabianist Services Not on file 08/27 Do you belong to any clubs o r organizations such as shinto groups, unions, fraternal or athletic groups, or [...] PHQ-2 Answer Date Recorded PHQ-2 Score 2 02/01/2023 [facility] of Occupat ional Health - Occupational Stress [...] Sex Assigned at Female 09/12/2020 12:05 PM CLAY MILLER Legal Sex Female 3:26 AM CLAY MILLER Gender Identity Female 09/12/2020 12:05 PM CLAY MILLER Sexual Orientation Straight 12/19/2021 10 :44 AM [...] suspected to have Coronavirus/COVID-19? No / Unsure 02/01/2023 8:33 AM CDT documented as of this encounter Plan of Treatment Upcoming Encounters Date Type Department Care Team (Late st Contact Info) Description 03/26/2025 11:00 AM CDT Therapy Visit [facility] 150 [place] [phone] Jason Alvares MD [address] [place] [address] 177385 Chaya Castillo [facility]TR [facility] 150 [place] [address] 03/29/2025 10:30 AM CDT Therapy Visit [facility] [address] [facility] [address] [place] [phone] [place] [address] MICHAEL 300 [place] [address] 04/02/2025 11:00 AM CDT Therapy Visit [facility] 150 [place] [phone] Jason Alvares MD [address] [place] [address] 344975 Chaya Castillo OTR [facility] [place] 150 [place] [address] 04/11/2025 12:30 PM CDT Office Visit [facility] Primary Care Clinic [address] 4th [place] [phone] Omar Carmona MD [address] [place] [address] 04/12/2025 2:15 PM CDT Therapy [facility] [address] [place] [phone] Jason Alvares MD [address] [place] [address] Chaya Castillo OTR [facility] [place] 150 [facility] [place] [address] 04/16/2025 11:00 AM CDT Therapy Visit [facility] [address] [place] [phone] Jason Alvares MD [address] [place] [address] Chaya Castillo [facility] 150 [place] [address] 04/23/2025 11:00 AM CDT Therapy Visit [facility] [place] [place] [phone] Jason Alvares MD [address] [place] [address] Chaya Castillo OTR [facility] [place] [address] [place] [address] 04/30/2025 11:00 AM CDT Therapy Visit [facility] Rehabilitation Services [facility] 150 [place] [phone] Jason Alvares MD 420 [facility] 295 [place] [address] Chaya Castillo, OTR [facility] 150 [place] [address] 05/15/2025 12:30 PM CDT Office Visit [address] [phone] Marquise Hanley MD [address] [place] [address] 06/08/2025 9:15 AM CDT Office Visit [facility] Hepatology Clinic [address] [phone] Jignesh Mathias MD [address] [place] [address] 243255 11/05/2025 1:45 PM CDT Office Visit [facility] Dermatology Clinic [address] 3rd [place] [address] Gavi Nieto PA-C Dermatology [address] [place] [address]751 documented as of this encounter Goals Goal [...] Assessment Noted Time PHQ-9 Depression Total Score: 9 02/02/20 23 10:02 AM CDT documented as of this encounter Care Teams Dye House Wheel Operator Relationship Specialty Start Date End Date Rio Jaquez MD [address] [place] [address] 78338 PCP - General Family Practice 12/02/10 07/13/24 Omar Carmona MD [address] [place] [address] 488405 PCP - General Family Medicine 07/14/24 Barry Kilpatrick MD [address] [place] [address] [id number] [place], [place] 413945 Neurology 07/19/14 Michelle Henderson I, RN Nurse Coordinator Neurology 07/19/14 Rio Jaquez MD [address] [place] [address] 925665 Family Practice 10/15/14 Jemima Jaramillo MD brand mgr 11/20/14 Kelley Chin, RN [facility] [address] [place] [address] 457685 Nurse Coordinator Cardiology 11/04/15 Sydnee Saleem MD [address] [place] [address] 508 [place] [address] Cardiology 11/04/15 Karlene Moya MD [address] [place] [address] 0[address]70 Ophthalmology 06/24/17 Wilbert Quintero OD [address] [place] [address] 48957 Optometry 06/24/17 Rod Gauthier DPM [address] [place] [address] 74128 French Polisher Primary Podiatric Medicine 06/21/18 Jan Mahmood MD [address] [place] [address] 07442 Gastroenterology 11/05/20 Brandt Quintana MD [address] [place] [address] 39652 Resident 11/05/20 Jan Mahmood MD [address] [place] [address] 54020 Assigned Gastroenterology Provider 12/01/20 Rio Jaquez MD [address] [place] [address] 70040 Assigned PCP 11/17/20 09/30/24 Dom Eason MD [address] [address] Internal Medicine 12/02/20 Jayla Plaza, RN Specialty Polisher Aluminum Hepatology 01/09/21 02/13/24 Jaimie Vernon, TANIA Specialty Polisher Aluminum Cardiology 10/28/21 Ruth Riddle, DPM, Podiatry/Foot and Ankle Surgery [address] RODRIGUEZ [address] [place] [address] Assigned Musculoskeletal Provider 11/30/21 09/30/23 Marquise Hanley MD [address] [place] [address] 71233 Endocrinology, Diabetes, and Metabolism 03/05/22 Vlad Ramey MD [address] [place] [address] 54618 Cardiovascular Disease 05/07/22 Joesph Crowe MD [address] [place] [address] 67726 MD Surgery 05/07/22 Luis Arrington MD [address] [place] [address] 03114 Assigned Neuroscience Provider 05/16/22 05/14/23 Michelle Padilla RN Specialty Polisher Aluminum Cardiology 07/03/22 Vlad Ramey MD [address] [place] [address] 94581 Assigned Heart and Vascular Provider 07/25/22 05/28/23 Marquise Hanley MD [address] [place] [address] 80122 Assigned Endocrinology Provider 08/15/22 Dom Eason MD [address] [place] [address] MIC[address]EL 353 [place] [address] Assigned Nephrology Provider 11/28/22 02/19/23 Wagner Oliver MD [facility]01 [facility] [place] [address] Critical Care 12/15/22 Laura Epperson, LULU 717 [facility] 1932 [place] [address] Assigned Nephrology Provider 02/20/23 08/30/24 Thom Taveras MD [address] [place] [address] Assigned Cancer Care Provider 02/06/23 08/20/23 Joesph Crowe MD [address] [place] [address] 36089 Surgery 03/17/23 Joesph Crowe MD [address] [place] [address] 23535 Assigned Surgical Provider 04/03/23 09/30/24 Adonay Haq MD [address] [place] [address] 45490 Internal Medicine 06/14/23OctoberDenilson MD 6405 [facility] [address] [place] [address] Assigned Heart and Vascular Provider 05/29/23 11/28/24 Jason Alvares MD 420 [facility] 295 [place] [address] Assigned Neuroscience Provider 05/15/23 11/28/24 Ruth Riddle DPM, Podiatry/Foot and Ankle Surgery [address] RODRIGUEZ [address] [place] [address] 519597 Assigned Musculoskeletal Provider 10/22/23 Jignesh Mathias MD [address] [place] [address] 152585 Gastroenterology 09/25/24 Adonay Haq MD [address] [place] [address] 785045 Assigned PCP 10/01/24 12/28/24 Omar Carmona MD [address] [place] [address] 914735 Assigned PCP 12/29/24 Jason Alvares MD [address] [place] [address] 295 [place], [place] 333525 Assigned Neuroscience Provider 12/29/24 Jignesh Mathias MD [address] [place] [address] 40139 Assigned Surgical Provider 12/29/24 Ayad Lopez, PhD LP [address] [place] [address] 042925 Assigned Behavioral Health Provider 02/28/25 Gavi Nieto, PA-C [address] [place] [address] 22929 Physician Telephone Engineer Dermatology 03/19/25 documented as of this encounter
--- OUTSIDE RECORDS SUMMARY | 2025-03-24 20:24 | XMS_ITS | Encounter Summary ---
Author Organization [facility] Address [address] [place] [address] 29046 Care Team Providers Care Pipe Turner Name Role Phone Rio Jaquez MD Primary Care Provider Barry Kilpatrick MD Unavailable Michelle Henderson I RN Unavailable [phone] Rio Jaquez MD Unavailable +[phone] Jemima Jaramillo MD Unavailable Unavai Kelley Bautista RN Unavailable +[phone] Sydnee Saleem MD Unavailable +[phone] Karlene Moya MD Unavailable +[phone] Wilbert Quintero OD Unavailable +[phone] Rod Gauthier DPM Unavailable Jan Mahmood MD Unavailable +[phone] Brandt Quintana MD Unavailable +[phone] Jan Mahmood MD Unavailable +[phone] Rio Jaquez MD Unavailable +[phone] Dom Eason MD Unavailable Jayla Plaza RN [...] Unavailable +[phone] Dom Eason MD Unavailable +[phone] Wagner Oliver MD Unavailable +[phone] Laura Epperson NP Unavailable +[phone] Thom Taveras MD Unavailable +[phone] Joesph Crowe MD Unavailable +[phone] Joesph Crowe MD Unavailable +[phone] Adonay Haq MD Unavailable +[phone] Denilson Srinivasan MD Unavailable + [phone] Jason Alvares MD Unavailable Ruth Riddle DPM, Podiatry /Foot and Ankle Surgery Unavailable Omar Carmona MD Primary Care Provider [phone] Jignesh Mathias MD Unavailable Adonay Haq MD Unavailable +1- Omar Carmona MD Unavailable +[phone] Jason Alvares MD Unavailable Jignesh Mathias MD Unavailable Ayad Lopez PhD LP Unavailable +[phone] Gavi NietoC Unavailable [phone] Encounter Details Date Type Department Care Team (Late st Contact Info) Description 12/16/2022 MyC Medical Advice [address] [address] Michelle Padilla RN Social History Tobacco Use Types Packs/Day [...] than three times a week 08/27/2021 Attends Buddhism Services Not on file 08/27 Do you belong to any clubs o r organizations such as anabaptism groups, unions, fraternal or athletic groups, or [...] Answer Date Recorded PHQ-2 Score 2 10/21/2022 [facility] - [...] place to sleep or slept in a nursing home (including now)? 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 Unable to assess 12/15/2022 9:24 AM CDT documented as of this encounter Plan of Treatment Upcoming Encounters Date Type Department Care Team (Late st Contact Info) Description 03/26/2025 11:00 AM CDT Therapy Visit [facility] [address] [place] [phone] Jason Alvares MD [address] [place] [address] 149615 Chaya Castillo OTR [facility] [address] [place] [address] 03/29/2025 10:30 AM CDT Therapy Visit [facility] [address] [facility] [address] [place] [phone] [place] [address] MICHAEL [address] [place] [address] 04/02/2025 11:00 AM CDT Therapy Visit [address] [phone] Jason Alvares MD [address] [place] [address] 985005 Chaya Castillo OTR [facility] [place] [address] [place] [address] 04/11/2025 12:30 PM CDT Office Visit [facility] [address] 4th [place] [phone] Omar Carmona MD [address] [place] [address] 04/12/2025 2:15 PM CDT Therapy Visit [facility] [address] [place] [phone] Jason Alvares MD [address] [place] [address] Chaya Castillo OTR [facility] [address] [place] [address] 04/16/2025 11:00 AM CDT Therapy Visit [facility] [address] [place] [phone] Jason Alvares MD [address] [place] [address] Chaya Castillo OTR [facility] [address] [place] [address] 04/23/2025 11:00 AM CDT Therapy Visit [facility] [place] [address] [place] [address] Jason Alvares MD [address] [place] [address] Chaya Castillo OTR [facility] [address] [place] [address] 04/30/2025 11:00 AM CDT Therapy Visit [facility] [address] [place] [phone] Jason Alvares MD 420 [facility] 295 [place] [address] Chaya Castillo, OTR [facility] 150 [place] [address] 05/15/2025 12:30 PM CDT Office Visit [address] [phone] Marquise Hanley MD [address] [place] [address] 06/08/2025 9:15 AM CDT Office Visit [facility] [address] [phone] Jignesh Mathias MD [address] [place] [address] 051725 11/05/2025 1:45 PM CDT Office Visit [facility] [address] 3rd [place] [address] Gavi Nieto PA-C Dermatology [address] [place] [address] documented as of this encounter Goals Goal [...] documented as of this encounter Care Teams Pipe Turner Relationship Specialty Start Date End Date Rio Jaquez MD [address] [place] [address] 41781 PCP - General Family Practice 12/02/10 07/13/24 Omar Carmona MD [address] [place] [address] [phone] PCP - General Family Medicine 07/14/24 Barry Kilpatrick MD [address] [place] [address] [id number] [place], [place] [phone] Neurology 07/19/14 Michelle Henderson I, RN Nurse Coordinator Neurology 07/19/14 Rio Jaquez MD [address] [place] [address] 435345 Family Practice 10/15/14 Jemima Jaramillo MD roller hand 11/20/14 Kelley Chin, TANIA [facility] [address] [place] [address] 078985 Nurse Coordinator Cardiology 11/04/15 Sydnee Saleem MD [address] [place] [address] 508 [place] [address] Cardiology 11/04/15 Karlene Moya MD [address] [place] [address] 16172 Ophthalmology 06/24/17 Wilbert Quintero OD [address] [place] [address] 22984 Optometry 06/24/17 Rod Gauthier DPM [address] [place] [address] 0[address]47 Nephrology Nurse Primary Podiatric Medicine 06/21/18 Jan Mahmood MD [address] [place] [address] Gastroenterology 11/05/20 Brandt Quintana MD [address] [place] [address] 96009 Resident 11/05/20 Jan Mahmood MD [address] [place] [address] 81464 Assigned Gastroenterology Provider 12/01/20 Rio Jaquez MD [address] [place] [address] 19618 Assigned PCP 11/17/20 09/30/24 Dom Eason MD [address] [address] Internal Medicine 12/02/20 Jayla Plaza, RN Specialty Stapler Hand Hepatology 01/09/21 02/13/24 Jaimie Vernon, TANIA Specialty Stapler Hand Cardiology 10/28/21 Ruth Riddle, DPM, Podiatry/Foot and Ankle Surgery [address] [place] [address] Assigned Musculoskeletal Provider 11/30/21 09/30/23 Marquise Hanley MD [address] [place] [address] 17410 Endocrinology, Diabetes, and Metabolism 03/05/22 Vlad Ramey MD [address] [place] [address] 00750 Cardiovascular Disease 05/07/22 Joesph Crowe MD [address] [place] [address] 75731 MD Surgery 05/07/22 Luis Arrington MD [address] [place] [address] 26836 Assigned Neuroscience Provider 05/16/22 05/14/23 Michelle Padilla RN Specialty Stapler Hand Cardiology 07/03/22 Vlda Ramey MD [address] [place] [address] 18325 Assigned Heart and Vascular Provider 07/25/22 05/28/23 Marquise Hanley MD [address] [place] [address] 31710 Assigned Endocrinology Provider 08/15/22 Dom Eason MD [address] [place] [address] [address] [place] [address] Assigned Nephrology Provider 11/28/22 02/19/23 Wagner Oliver MD [address] [place] [address] Critical Care 12/15/22 Laura Epperson, LULU 717 [facility] [address] [place] [address] Assigned Nephrology Provider 02/20/23 08/30/24 Thom Taveras MD [address] [facility], R105 [place] [address] Assigned Cancer Care Provider 02/06/23 08/20/23 Joesph Crowe MD 909 [place] [address] Surgery 03/17/23 Joesph Crowe MD 9 [place] [address] Assigned Surgical Provider 04/03/23 09/30/24 Adonay Haq MD 9 [place] [address] Internal Medicine 06/14/23OctoberDenilson MD 6405 [facility] [address] [place] [address] Assigned Heart and Vascular Provider 05/29/23 11/28/24 Jason Alvares MD 420 [facility] 295 [place] [address] Assigned Neuroscience Provider 05/15/23 11/28/24 Ruth Riddle, DPM, Podiatry/Foot and Ankle Surgery [address] [place], [place] 408[address] Assigned Musculoskeletal Provider 10/22/23 Jignesh Mathias MD [address] [place] [address] 404335 Gastroenterology 09/25/24 Adonay Haq MD [address] [place] [address] 319165 Assigned PCP 10/01/24 12/28/24 Omar Carmona MD [address] [place] [address] 548625 Assigned PCP 12/29/24 Jason Alvares MD [address] [place] [address] 295 [place], [place] 492665 Assigned Neuroscience Provider 12/29/24 Jignesh Mathias MD [address] [place] [address] 873685 Assigned Surgical Provider 12/29/24 Ayad Lopez, PhD LP [address] [place] [address] [phone] Assigned Behavioral Health Provider 02/28/25 Gavi Nieto, PA-C [address] [place] [address]15 Physician Roving Machine Operator Dermatology 03/19/25 documented as of this encounter
--- OUTSIDE RECORDS SUMMARY | 2025-03-24 20:24 | XMS_ITS | Encounter Summary ---
Author Organization [facility] Address [address] [place] [address] 23895 Care Team Providers Care Pc Tech Name Role Phone Rio Jaquez MD Primary Care Provider Barry Kilpatrick MD Unavailable Michelle Henderson I RN Unavailable [phone] Rio Jaquez MD Unavailable +[phone] Jemima Jaramillo MD Unavailable Unavai Kelley Bautista RN Unavailable [phone] Sydnee Saleem MD Unavailable +[phone] Karlene Moya MD Unavailable +[phone] Wilbert Quintero OD Unavailable +[phone] Rod Gauthier DPM Unavailable Jan Mahmood MD Unavailable [phone] Brandt Quintana MD Unavailable [phone] Jan Mahmood MD Unavailable +[phone] Rio Jaquez MD Unavailable +[phone] Dom Eason MD Unavailable Jayla Plaza RN [...] Unavailable +[phone] Dom Eason MD Unavailable +[phone] Wagner Oliver MD Unavailable +[phone] Laura Epperson NP Unavailable +[phone] Thom Taveras MD Unavailable +[phone] Joesph Crowe MD Unavailable +[phone] Joesph Crowe MD Unavailable +[phone] Adonay Haq MD Unavailable +[phone] Denilson Srinivasan MD Unavailable + [phone] Jason Alvares MD Unavailable Ruth Riddle DPM, Podiatry /Foot and Ankle Surgery Unavailable Omar Carmona MD Primary Care Provider [phone] Jignesh Mathias MD Unavailable Adonay Haq MD Unavailable +1- Omar Carmona MD Unavailable +[phone] Jason Alvares MD Unavailable Jignesh Mathias MD Unavailable Ayad Lopez PhD LP Unavailable Gavi Nieto PA-C Unavailable [phone] Encounter Details Date Type Department Care Team (Late st Contact Info) Description 12/04/2022 MyC Medical Advice [facility] [address] [address] Jan Mahmood MD [address] [place] [address] [address] [place], [place] [phone] Social History Tobacco Use Types Packs/Day Years [...] any clubs o r organizations such as taoist groups, unions, fraternal or athletic groups, or [...] Answer Date Recorded PHQ-2 Score 2 10/21/2022 [facility] - [...] Sex Assigned at Female 09/12/2020 12:05 PM STATION MANAGER Legal Sex Female 3:26 AM STATION MANAGER Gender Identity Female 09/12/2020 12:05 PM STATION MANAGER Sexual Orientation Straight 12/19/2021 10 :44 AM [...] Description 03/26/2025 11:00 AM CDT Therapy Visit [address] [phone] Jason Alvares MD 420 [place] [address] Chaya Castillo, OTR [address] [address] 03/29/2025 10:30 AM CDT Therapy Visit [facility] [address] [place] [phone] [place] [address] MICHAEL [address] [place] [address] 04/02/2025 11:00 AM CDT Therapy Visit [address] [phone] Jason Alvares MD [address] [place] [address] Chaya Castillo OTR [facility] 150 [facility] [place] [address] 04/11/2025 12:30 PM CDT Office Visit [facility] [address] 4th [place] [phone] Omar Carmona MD [address] [place] [address] 04/12/2025 2:15 PM CDT [facility] 150 [place] [address] Jason Alvares MD [address] [place] [address] Chaya Castillo [facility]TR [facility] 150 [place] [address] 04/16/2025 11:00 AM CDT Therapy [facility] 150 [place] [phone] Jason Alvares MD [address] [place] [address] Chaya Castillo OTR [facility] [place] [facility] 150 [place] [address] 04/23/2025 11:00 AM CDT Therapy Visit [facility] 150 [place] [phone] Jason Alvares MD [address] [place] [address] Chaya Castillo, OTR [facility] [facility] [address] [place] [address] 04/30/2025 11:00 AM CDT Therapy Visit [facility] 150 [place] [address] Jason Alvares MD [address] [place] [address] 933055 Chaya Castillo, OTR [facility] 150 [place] [address] 05/15/2025 12:30 PM CDT Office Visit [address] [phone] Marquise Hanley MD [address] [place] [address] 06/08/2025 9:15 AM CDT Office Visit [facility] [address] [phone] Jignesh Mathias MD [address] [place] [address] 11/05/2025 1:45 PM CDT Office Visit [facility] [address] 3rd [place] [phone] Gavi Nieto PA-C Dermatology [address] [place] [address] [phone] documented as of this encounter Goals Goal [...] documented as of this encounter Care Teams Pc Tech Relationship Specialty Start Date End Date Rio Jaquez MD [address] [place] [address] 493015 PCP - General Family Practice 12/02/10 07/13/24 Omar Carmona MD [address] [place] [address] [phone] PCP - General Family Medicine 07/14/24 Barry Kilpatrick MD [address] [place] [address] [id number] [place], [place] 538415 Neurology 07/19/14 Michelle Henderson I, TANIA Nurse Coordinator Neurology 07/19/14 Rio Jaquez MD [address] [place] [address]8421 MD Family Practice 10/15/14 Jemima Jaramillo MD disaster response director 11/20/14 Kelley Chin, TANIA [address] [phone] Nurse Coordinator Cardiology 11/04/15 Sydnee Saleem MD [address] [place] [address] 508 [place] [address] Cardiology 11/04/15 Karlene Moya MD 6 [place] [address] MD Ophthalmology 06/24/17 Wilbert Quintero OD 9 [place], [place] 429615 Optometry 06/24/17 Rod Gauthier DPM 9 [place], [place] [address] MD Fitter Tacker Primary Podiatric Medicine 06/21/18 Jan Mahmood MD [address] [place] [address] MD Gastroenterology 11/05/20 Brandt Quintana MD [address] [place] [address] 25720 Resident 11/05/20 Jan Mahmood MD [address] [place] [address] Assigned Gastroenterology Provider 12/01/20 Rio Jaquez MD 9 [facility] [place] [address] [place] [address] 530675 Assigned PCP 11/17/20 09/30/24 Dom Eason MD 717 [facility] MICHAEL [address] [place], [place] 059444 Internal Medicine 12/02/20 Jayla Plaza, RN Specialty General Maintenance Technician Hepatology 01/09/21 02/13/24 Jaimie Vernon, RN Specialty General Maintenance Technician Cardiology 10/28/21 Ruth Riddle, DPM, Podiatry/Foot and Ankle Surgery [address] [place] [address] Assigned Musculoskeletal Provider 11/30/21 09/30/23 Marquise Hanley MD [address] [place] [address] [phone] Endocrinology, Diabetes, and Metabolism 03/05/22 Vlad Ramey MD [address] [place] [address] [phone] Cardiovascular Disease 05/07/22 Joesph Crowe MD [address] [place] [address] 230125 Surgery 05/07/22 Luis Arrington MD [address] [place] [address] 563085 Assigned Neuroscience Provider 05/16/22 05/14/23 Michelle Padilla RN Specialty General Maintenance Technician Cardiology 07/03/22 Vlad Ramey MD [address] [place] [address] 285325 Assigned Heart and Vascular Provider 07/25/22 05/28/23 Marquise Hanley MD [address] [place] [address] 209325 Assigned Endocrinology Provider 08/15/22 Dom Eason MD 717 [facility] 353 [place] [address] Assigned Nephrology Provider 11/28/22 02/19/23 Wagner Oliver MD [address] [place] [address] Critical Care 12/15/22 Laura Epperson NP 717 [facility] 1932 [place] [address] Assigned Nephrology Provider 02/20/23 08/30/24 Thom Taveras MD [facility] [address], [address] [place] [address] Assigned Cancer Care Provider 02/06/23 08/20/23 Joesph Crowe MD [address] [place] [address] 87418 Surgery 03/17/23 Joesph Crowe MD [address] [place] [address] 16384 Assigned Surgical Provider 04/03/23 09/30/24 Adonay Haq MD [address] [place] [address] 049415 Internal Medicine 06/14/23OctoberDenilson MD [address] [facility] [address] [place] [address] Assigned Heart and Vascular Provider 05/29/23 11/28/24 Jason Alvares MD [address] [place] [address] 99703 Assigned Neuroscience Provider 05/15/23 11/28/24 Ruth Riddle, DPM, Podiatry/Foot and Ankle Surgery [address] R[place]IG[place]Z [address] [place] [address] 16780 Assigned Musculoskeletal Provider 10/22/23 Jignesh Mathias MD [address] [place] [address] 46499 Gastroenterology 09/25/24 Adonay Haq MD [address] [place] [address] 24873 Assigned PCP 10/01/24 12/28/24 Omar Carmona MD [address] [place] [address] [phone] Assigned PCP 12/29/24 Jason Alvares MD [address] [place] [address] 20119 Assigned Neuroscience Provider 12/29/24 Jignesh Mathias MD [address] [place] [address] 848285 Assigned Surgical Provider 12/29/24 Ayad Lopez, PhD LP [address] [place] [address] 130995 Assigned Behavioral Health Provider 02/28/25 Gavi Nieto PA-C 500 [place] [address] Physician Compliance Program Manager Dermatology 03/19/25 documented as of this encounter
--- OUTSIDE RECORDS SUMMARY | 2025-03-24 20:24 | XMS_ITS | Encounter Summary ---
Author Organization [place] [facility] Address [address] [place] [address] 11194 Care Team Providers Care Crab Catcher Name Role Phone Rio Jaquez MD Primary Care Provider Barry Kilpatrick MD Unavailable Michelle Henderson I RN Unavailable [phone] Rio Jaquez MD Unavailable +[phone] Jemima Jaramillo MD Unavailable Unavai Kelley Bautista RN Unavailable [phone] Sydnee Saleem MD Unavailable +[phone] Karlene Moya MD Unavailable Wilbert Quintero OD Unavailable +[phone] Rod Gauthier DPM Unavailable Jan Mahmood MD Unavailable +[phone] Brandt Quintana MD Unavailable Jan Mahmood MD Unavailable +[phone] Rio Jaquez MD Unavailable +[phone] Dom Eason MD Unavailable Jayla Plaza RN Unavailable +[phone] Jamiie Vernon RN Unavailable Unavailable Ruth Riddle DPM, Podiatry /Foot and Ankle Surgery Unavailable Marquise Hanley MD Unavailable +[phone] Vlad Ramey MD Unavailable +[phone] Joesph Crowe MD Unavailable +[phone] Luis Arrington MD Unavailable +[phone] Michelle Padilla RN Unavailable Unavaila ble Vlad Ramey MD Unavailable +[phone] Marquise Hanley MD Unavailable +[phone] Dom Eason MD Unavailable +[phone] Wagner Oliver MD Unavailable +[phone] Laura Epperson NP Unavailable +[phone] Thom Taveras MD Unavailable +[phone] Joesph Crowe MD Unavailable +[phone] Joesph Crowe MD Unavailable +[phone] Adonay Haq MD Unavailable +[phone] Denilson Srinivasan MD Unavailable + [phone] Jason Alvares MD Unavailable Ruth Riddle DPM, Podiatry /Foot and Ankle Surgery Unavailable Omar Carmona MD Primary Care Provider [phone] Jignesh Mathias MD Unavailable Adonay Haq MD Unavailable +1- mOar Carmona MD Unavailable +[phone] Jason Alvares MD Unavailable Jignesh Mathias MD Unavailable Ayad Lopez PhD LP Unavailable +[phone] Gavi Nieto PA-C Unavailable +[phone] Encounter Details Date Type Department Care Team (Late st Contact Info) Description 12/28/2022 MyC Medical Advice [facility] Nephrology Clinic [address] [phone] Veronica Herr Social History Tobacco Use Types Packs/Day Years [...] than three times a week 08/27/2021 Attends Bahai Services Not on file 08/27 Do you belong to any clubs o r organizations such as nondenominational groups, unions, fraternal or athletic groups, or [...] Answer Date Recorded PHQ-2 Score 2 10/21/2022 [facility] - Occupational [...] place to sleep or slept in a jail (including now)? 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 No / Unsure 12/20/2022 8:04 PM CDT documented as of this encounter Plan of Treatment Upcoming Encounters Date Type Department Care Team (Late st Contact Info) Description 03/26/2025 11:00 AM CDT Therapy Visit [address] [phone] Jason Alvares MD [address] [place] [address] [phone] Chaya Castillo OTR FV [address] [id number] 03/29/2025 10:30 AM CDT Therapy Visit [facility] Specialty Center [address] [facility] [address] [place] [phone] [place] [address] [place], [place] 06[address] 04/02/2025 11:00 AM CDT Therapy Visit [address] [phone] Jason Alvares MD [address] [place] [address] 336315 Castillo, Chaya A, OTR FV [address] [place] [place] [address] 04/11/2025 12:30 PM CDT Office Visit [facility] [address] 4th [place] [phone] Omar Carmona MD [address] [place] [address] 04/12/2025 2:15 PM CDT Therapy Visit [facility] [phone] Jason Alvares MD [address] [place] [address] Chaya Castillo, OTR FV [place] [place] [address] [place] [address] 04/16/2025 11:00 AM CDT Therapy [facility] [address] [place] [phone] Jason Alvares MD [address] [place] [address] Chaya Castillo, OTR FV [address] [place] [address] [place] [address] 04/23/2025 11:00 AM CDT Therapy Visit [facility] [address] [place] [phone] Jason Alvares MD [address] [place] [address] Chaya Castillo OTR FV [address] [place] [address] [place] [address] 04/30/2025 11:00 AM CDT Therapy Visit [facility] Rehabilitation Services [facility] 150 [place] [phone] Jason Alvares MD 420 [facility] 295 [place] [address] Chaya Castillo, OTR [facility] 150 [place] [address] 05/15/2025 12:30 PM CDT Office Visit [address] [phone] Marquise Hanley MD [address] [place] [address] 06/08/2025 9:15 AM CDT Office Visit [facility] Hepatology Clinic [address] [phone] Jignesh Mathias MD [address] [place] [address] 963835 11/05/2025 1:45 PM CDT Office Visit [facility] Dermatology [address] 3rd [place] [phone] Gavi Nieto PA-C Dermatology [address] [place] [address] 450[address] documented as of this encounter Goals Goal [...] documented as of this encounter Care Teams Crab Catcher Relationship Specialty Start Date End Date Rio Jaquez MD [address] [place] [address] 53305 PCP - General Family Practice 12/02/10 07/13/24 Omar Carmona MD [address] [place] [address] [phone] PCP - General Family Medicine 07/14/24 Barry Kilpatrick MD [address] [place] [address] [id number] [place], [place] 987385 Neurology 07/19/14 Michelle Henderson I, RN Nurse Coordinator Neurology 07/19/14 Rio Jaquez MD [address] [place] [address] 894035 Family Practice 10/15/14 Jemima Jaramillo MD training and quality manager 11/20/14 Kelley Chin, TANIA [address] 315295 Nurse Coordinator Cardiology 11/04/15 Sydnee Saleem MD [address] [place] [address] 508 [place], [place] [phone] Cardiology 11/04/15 Karlene Moya MD 6 [place] [address] Ophthalmology 06/24/17 Wilbert Quintero OD [address] [place] [address] 35203 Optometry 06/24/17 Rod Gauthier DPM [address] [place] [address] 16542 Chief Hydroelectric Station Operator Primary Podiatric Medicine 06/21/18 Jan Mahmood MD [address] [place] [address] Gastroenterology 11/05/20 Brandt Quintana MD [address] [place] [address]309 Resident 11/05/20 Jan Mahmood MD [address] [place] [address] 29513 Assigned Gastroenterology Provider 12/01/20 Rio Jaquez MD [address] [place] [address] 4 [place] [address] Assigned PCP 11/17/20 09/30/24 Dom Eason MD 717 [facility] 353 [place] [address] Internal Medicine 12/02/20 Jayla Plaza, RN Specialty Air Twister Winder Hepatology 01/09/21 02/13/24 Jaimie Vernon, TANIA Specialty Air Twister Winder Cardiology 10/28/21 Ruth Riddle, DPM, Podiatry/Foot and Ankle Surgery [address] [place] [address] Assigned Musculoskeletal Provider 11/30/21 09/30/23 Marquise Hanley MD [address] [place] [address] 56227 Endocrinology, Diabetes, and Metabolism 03/05/22 Vlad Ramey MD [address] [place] [address] 37561 Cardiovascular Disease 05/07/22 Joesph Crowe MD [address] [place] [address] 82690 Surgery 05/07/22 Luis Arrington MD [address] [place] [address] 45797 Assigned Neuroscience Provider 05/16/22 05/14/23 Michelle Padilla RN Specialty Air Twister Winder Cardiology 07/03/22 Vlad Ramey MD [address] [place] [address] 19055 Assigned Heart and Vascular Provider 07/25/22 05/28/23 Marquise Hanley MD [address] [place] [address] 00767 Assigned Endocrinology Provider 08/15/22 Dom Eason MD 717 [facility] MICHAEL 353 [place] [address] Assigned Nephrology Provider 11/28/22 02/19/23 Wagner Oliver MD [address] [place] [address] Critical Care 12/15/22 Laura Epperson, LULU 717 [facility] [address] [place] [address] Assigned Nephrology Provider 02/20/23 08/30/24 Thom Taveras MD [address] [facility], R105 [place] [address] Assigned Cancer Care Provider 02/06/23 08/20/23 Joesph Crowe MD 909 [place] [address] Surgery 03/17/23 Joesph Crowe MD 909 [place] [address] Assigned Surgical Provider 04/03/23 09/30/24 Adonay Haq MD 909 [place] [address] Internal Medicine 06/14/23OctoberDenilson MD 6405 [facility] [address] [place] [address] Assigned Heart and Vascular Provider 05/29/23 11/28/24 Jason Alvares MD 420 [facility] 295 [place] [address] Assigned Neuroscience Provider 05/15/23 11/28/24 Ruth Riddle, DPM, Podiatry/Foot and Ankle Surgery [address] [place] [address] Assigned Musculoskeletal Provider 10/22/23 Jignesh Mathias MD [address] [place] [address] 238995 Gastroenterology 09/25/24 Adonay Haq MD [address] [place] [address] 916385 Assigned PCP 10/01/24 12/28/24 Omar Carmona MD [address] [place] [address] 547195 Assigned PCP 12/29/24 Jason Alvares MD [address] [place] [address] 295 [place], [place] 843995 Assigned Neuroscience Provider 12/29/24 Jignesh Mathias MD [address] [place] [address] 77782 Assigned Surgical Provider 12/29/24 Ayad Lopez, PhD LP [address] [place] [address] [phone] Assigned Behavioral Health Provider 02/28/25 Gavi Nieto, PA-C [address] [place] [address] 99576 Physician Hide Washer Dermatology 03/19/25 documented as of this encounter
--- OUTSIDE RECORDS SUMMARY | 2025-03-24 20:24 | XMS_ITS | Encounter Summary ---
Author Organization [facility] Address [address] [place] [address] 86969 Care Team Providers Care Pediatric Physician Name Role Phone Rio aJquez MD Primary Care Provider Barry Kilpatrick MD Unavailable Michelle Henderson I RN Unavailable [phone] Rio Jaquez MD Unavailable [phone] Jemima Jaramillo MD Unavailable Unavai Kelley Bautista RN Unavailable [phone] Sydnee Saleem MD Unavailable +[phone] Karlene Moya MD Unavailable Wilbert Quintero OD Unavailable +[phone] Rod Gauthier DPM Unavailable +[phone] Jan Mahmood MD Unavailable [phone] Brandt Quintana MD Unavailable Jan Mahmood MD Unavailable +[phone] Rio Jaquez MD Unavailable +[phone] Dom Eaosn MD Unavailable Jayla Plaza RN Unavailable +[phone] Unavailable +[phone] Dom Eason MD Unavailable +[phone] Wagner Oliver MD Unavailable +[phone] Laura Epperson NP Unavailable +[phone] Thom Taveras MD Unavailable +[phone] Joesph Crowe MD Unavailable +[phone] Joesph Crowe MD Unavailable +[phone] Adonay Haq MD Unavailable +[phone] Denilson Srinivasan MD Unavailable + [phone] Jason Alvares MD Unavailable Ruth Riddle DPM, Podiatry /Foot and Ankle Surgery Unavailable Omar Carmona MD Primary Care Provider [phone] Jignesh Mathias MD Unavailable Adonay Haq MD Unavailable +1- Omar Carmona MD Unavailable +[phone] Jason Alvares MD Unavailable iJgnesh Mathias MD Unavailable Ayad Lopez PhD LP Unavailable +[phone] Gavi Nieto PA-C Unavailable [phone] Encounter Details Date Type Department Care Team (Late st Contact Info) Description 12/29/2022 MyC Medical Advice [facility] Nephrology Clinic [address] [phone] Veronica Herr Social History Tobacco [...] than three times a week 08/27/2021 Attends Baptism Services Not on file 08/27 Do you belong to any clubs o r organizations such as yazdanism groups, unions, fraternal or athletic groups, or school groups? 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 Legal Sex Female 3:26 AM PATROL OFFICER Gender Identity Female 09/12/2020 12:05 PM PATROL OFFICER Sexual Orientation Straight 12/19/2021 10 :44 AM [...] Description 03/26/2025 11:00 AM CDT Therapy Visit [address] [phone] Jason Alvares MD [address] [place] [address] 939575 Chaya Castillo OTR FV [address] 808287 03/29/2025 10:30 AM CDT Therapy Visit [facility] Specialty Center [address] [facility] [address] [place] [phone] [place] [address] [place], [place] 111427 04/02/2025 11:00 AM CDT Therapy Visit [address] [phone] Jason Alvares MD [address] [place] [address] 608735 Castillo, Chaya A, OTR FV [address] [place] [address] [place] [address] 04/11/2025 12:30 PM CDT Office Visit [facility] Primary Care Clinic [address] 4th [place] [phone] Omar Carmona MD [address] [place] [address] 04/12/2025 2:15 PM CDT Therapy Visit [facility] 150 [facility] [address]-5714 Jason Alvares MD [address] [place] [address] Chaya Castillo, OTR FV [facility] [place] [address] [place] [address] 04/16/2025 11:00 AM CDT Therapy Visit [facility] [address] [place] [phone] Jason Alvares MD [address] [place] [address] 97[address] Chaya Castillo, OTR FV [address] [place] [address] [place] [address] 04/23/2025 11:00 AM CDT Therapy Visit [facility] [address] [place] [phone] Jason Alvares MD [address] [place] [address] 25160 Chaya Castillo OTR FV [address] [place] [address] [place] [address] 04/30/2025 11:00 AM CDT Therapy Visit [facility] 150 [place] [address]15[address]14 Jason Alvares MD 420 [facility] 295 [place] [address] Chaya Castillo, OTR [facility] 150 [place] [address] 05/15/2025 12:30 PM CDT Office Visit [address] [phone] Marquise Hanley MD [address] [place] [address] 87529 06/08/2025 9:15 AM CDT Office Visit [facility] Hepatology Clinic [address] [phone] Jignesh Mathias MD [address] [place] [address] 711335 11/05/2025 1:45 PM CDT Office Visit [facility] Dermatology [address] 3rd [place] [phone] Gavi Nieto PA-C Dermatology [address] [place] [address] 42662 documented as of this encounter Goals Goal [...] documented as of this encounter Care Teams Pediatric Physician Relationship Specialty Start Date End Date Rio Jaqeuz MD [address] [place] [address] 67834 PCP - General Family Practice 12/02/10 07/13/24 Omar Carmona MD [address] [place] [address] 569005 PCP - General Family Medicine 07/14/24 Barry Kilpatrick MD [address] [place] [address] [id number] [place], [place] 019955 Neurology 07/19/14 Michelle Henderson I, RN Nurse Coordinator Neurology 07/19/14 Rio Jaquez MD [address] [place] [address] 359585 Family Practice 10/15/14 Jemima Jaramillo MD manager sourcing 11/20/14 Kelley Chin, TANIA [address] 210175 Nurse Coordinator Cardiology 11/04/15 Sydnee Saleem MD [address] [place] [address] 508 [place], [place] 144475 Cardiology 11/04/15 Karlene Moya MD 6 [place] [address] Ophthalmology 06/24/17 Wilbert Quintero OD [address] [place] [address] 47021 Optometry 06/24/17 Rod Gauthier DPM [address] [place] [address] 34442 Farm General Manager Primary Podiatric Medicine 06/21/18 Jan Mahmood MD [address] [place] [address] 48367 Gastroenterology 11/05/20 Brandt Quintana MD [address] [place] [address] Resident 11/05/20 Jan Mahmood MD [address] [place] [address] 04716 Assigned Gastroenterology Provider 12/01/20 Rio Jaquez MD [address] [place] [address] 4 [place] [address] Assigned PCP 11/17/20 09/30/24 Dom Eason MD 717 [facility] 353 [place] [address] Internal Medicine 12/02/20 Jayla Plaza, RN Specialty Reporting Developer Hepatology 01/09/21 02/13/24 Jaimie Vernon, TANIA Specialty Reporting Developer Cardiology 10/28/21 Ruth Riddle, DPM, Podiatry/Foot and Ankle Surgery [address] [place] [address] Assigned Musculoskeletal Provider 11/30/21 09/30/23 Marquise Hanley MD [address] [place] [address] 25348 Endocrinology, Diabetes, and Metabolism 03/05/22 Vlad Ramey MD [address] [place] [address] 80941 Cardiovascular Disease 05/07/22 Joesph Crowe MD [address] [place] [address] 09381 Surgery 05/07/22 Luis Arrington MD [address] [place] [address] 49209 Assigned Neuroscience Provider 05/16/22 05/14/23 Michelle Padilla RN Specialty Reporting Developer Cardiology 07/03/22 Vlad Ramey MD [address] [place] [address] 65075 Assigned Heart and Vascular Provider 07/25/22 05/28/23 Marquise Hanley MD [address] [place] [address] 27608 Assigned Endocrinology Provider 08/15/22 Dom Eason MD 717 [facility] MICHAEL 353 [place] [address] Assigned Nephrology Provider 11/28/22 02/19/23 Wagner Oliver MD [address] [place] [address] Critical Care 12/15/22 Laura Epperson, LULU 717 [facility] 1932 [place] [address] Assigned Nephrology Provider 02/20/23 08/30/24 Thom Taveras MD [address] [facility], [address] [place] [address] Assigned Cancer Care Provider 02/06/23 08/20/23 Joesph Crowe MD 909 [place] [address] Surgery 03/17/23 Joesph Crowe MD 909 [place] [address] Assigned Surgical Provider 04/03/23 09/30/24 Adonay Haq MD 909 [place] [address] Internal Medicine 06/14/23OctoberDenilson MD 6405 [facility] [address] [place] [address] Assigned Heart and Vascular Provider 05/29/23 11/28/24 Jason Alvares MD 420 [facility] 295 [place] [address] Assigned Neuroscience Provider 05/15/23 11/28/24 Ruth Riddle, DPM, Podiatry/Foot and Ankle Surgery [address] [place] [address] Assigned Musculoskeletal Provider 10/22/23 Jignesh Mathias MD [address] [place] [address] 242875 Gastroenterology 09/25/24 Adonay Haq MD [address] [place] [address] 090925 Assigned PCP 10/01/24 12/28/24 Omar Carmona MD [address] [place] [address] 851125 Assigned PCP 12/29/24 Jason Alvares MD [address] [place] [address] 295 [place], [place] 310245 Assigned Neuroscience Provider 12/29/24 Jignesh Mathias MD [address] [place] [address] 27919 Assigned Surgical Provider 12/29/24 Ayad Lopez, PhD LP [address] [place] [address] 288615 Assigned Behavioral Health Provider 02/28/25 Gavi Nieto, PA-C [address] [place] [address] 98474 Physician Geospatial Specialist Dermatology 03/19/25 documented as of this encounter
--- OUTSIDE RECORDS SUMMARY | 2025-03-24 20:25 | XMS_ITS | Encounter Summary ---
Author Organization [facility] Address [address] [place] [address] 11724 Care Team Providers Care Resident Advisor Name Role Phone Rio Jaquez MD Primary Care Provider Barry Kilpatrick MD Unavailable Michelle Henderson RN Unavailable [phone] Cathie Lucero NP Unavailable [phone] Rio Jaquez MD Unavailable [phone] Jemima Jaramillo MD Unavailable Unavai Rudolph Padilla MD Unavailable Kelley Chin RN Unavailable Sydnee Saleem MD Unavailable [phone] [facility] Unavailable [phone] Alexandria Nelson RN Unavailable [phone] Karlene Moya MD Unavailable +[phone] Wilbert Quintero OD Unavailable +[phone] Rod Gauthier DPM Unavailable Kerrie Verdin PA-C Unavailable [phone] Nallely Hogue RN Unavailable Unavailable Larisa Vargas RN Unavailable Unavailable Rio Jaquez MD Unavailable [phone] Ruth Yarbrough MD Unavailable Francisco Lott MD Unavailable Frida Grace MD Unavailable [phone] Sydnee Saleem MD Unavailable [phone] Greg Ortega MD Unavailable Frida Grace MD Unavailable [phone] Jan Mahmood MD Unavailable Brandt Quintana MD Unavailable Jan Mahmood MD Unavailable Rio Jaquez MD Unavailable [phone] Dom Eason MD Unavailable Jayla Plaza RN Unavailable Jayla Plaza RN Unavailable Sydnee Saleem MD Unavailable Phan Coello MD Unavailable Unavailable Cristian Barragan MD Unavailable [phone] Dom Eason MD Unavailable Jaimie Vernon RN Unavailable Unavailable Ruth Riddle DPM, Podiatry /Foot and Ankle Surgery Unavailable Luis Arrington MD Unavailable Jason Alvares MD Unavailable Marquise Hanley MD Unavailable [phone] Vlad Ramey MD Unavailable +[phone] Joesph Crowe MD Unavailable +[phone] Luis Arrington MD Unavailable Michelle Padilla RN Unavailable Unavaila ble Vlad Ramey MD Unavailable [phone] Marquise Hanley MD Unavailable [phone] Dom Eason MD Unavailable [phone] Wagner Oliver MD Unavailable [phone] Laura Epperson NP Unavailable [phone] Thom Taveras MD Unavailable [phone] Joesph Crowe MD Unavailable + [phone] Joesph Crowe MD Unavailable + [phone] Adonay Haq MD Unavailable [phone] OctoberDenilson MD Unavailable + [phone] Jason Alvares MD Unavailable Ruth Riddle DPM, Podiatry /Foot and Ankle Surgery Unavailable Omar Carmona MD Primary Care Provider [phone] Jignesh Mathias MD Unavailable Adonay Haq MD Unavailable [phone] Omar Carmona MD Unavailable [phone] Jason Alvares MD Unavailable Jignesh Mathias MD Unavailable Ayad Lopez PhD LP Unavailable [phone] Gavi Nieto PA-C Unavailable [phone] Encounter Details Date Type Department Care Team (Late st Contact Info) Description 07/26/2014 MyC Medical Advice Neurology Clinic [facility] 1st Floor, Clinic 1A [address] [place] [address] Barry Kilpatrick MD [address] [facility] [place] [id number] [place] [address] Social History Tobacco Use Types Packs/Day Years Used Date Smoking Tobacco: Every Day Cigarettes 1 28 Smokeless Tobacco: Never Alcohol Use Standard Drinks/Week Comments Yes 4.2 (1 standard drink = 0.6 oz p ure alcohol) occ Comments No Sex and Gender Information Value Date Recorded Sex Assigned at Female 09/12/2020 12:05 PM SENIOR FRONT END ENGINEER Legal Sex Female 3:26 AM SENIOR FRONT END ENGINEER Gender Identity Female 09/12/2020 12:05 PM SENIOR FRONT END ENGINEER Sexual Orientation Straight 12/19/2021 10 :44 AM CDT Occupation Industry Job Start Date Job End Date on disability for FMS Not on file Not on file Not on file documented as of this encounter Plan of Treatment Upcoming Encounters Date Type Department Care Team (Late st Contact Info) Description 03/26/2025 11:00 AM CDT Therapy Visit [address] [phone] Jason Alvares MD [address] [place] [address] [phone] Chaya Castillo, OTR [address] [address] 03/29/2025 10:30 AM CDT [facility] [address] [place] [phone] [place] [address] [place] [address] 04/02/2025 11:00 AM CDT Therapy Visit [address] [phone] Jason Alvares MD [address] [place] [address] [phone] Chaya Casitllo, OTR [facility] [address] [place] [address] 04/11/2025 12:30 PM CDT Office Visit [facility] Primary [facility] Clinic [address] 4th [place] [phone] Omar Carmona MD [address] [place] [address] 04/12/2025 2:15 PM CDT Therapy Visit [address] [phone] Jason Alvares MD [address] [place] [address] Chaya Castillo OTR [facility] [address] [place] [address] 04/16/2025 11:00 AM CDT Therapy Visit [address] [phone] Jason Alvares MD [address] [place] [address] Chaya Castillo OTR [facility] [address] [place] [address] 04/23/2025 11:00 AM CDT Therapy Visit [facility] [address] [place] [phone] Jason Alvares MD [address] [place] [address] [phone] Chaya Castillo, OTR [facility] [address] [place] [address] 04/30/2025 11:00 AM CDT Therapy Visit [facility] Rehabilitation Services [facility] [address] [place] [phone] Jason Alvares MD [address] [place] [address] 873405 Chaya Castillo OTR [address] [address] 05/15/2025 12:30 PM CDT Office Visit [address] [phone] Marquise Hanley MD [address] [place] [address] 06/08/2025 9:15 AM CDT Office Visit [facility] Hepatology Clinic [address] [phone] Jignesh Mathias MD [address] [place] [address] 11/05/2025 1:45 PM CDT Office Visit [facility] Dermatology Clinic [address] 3rd [place] [phone] Gavi Nieto PA-C Dermatology [address] [place] [address] documented as of this encounter Goals Goal [...] COVID-19 02/09/2024 02/09/2024 02/09/2024 1:52 AM CDT documented as of this encounter Care Teams Resident Advisor Relationship Specialty Start Date End Date Rio Jaquez MD [address] [place] [address] PCP - General Family Practice 12/02/10 07/13/24 Omar Carmona MD [address] [place] [address]19 PCP - General Family Medicine 07/14/24 Barry Kilpatrick MD [address] [place] [address] [id number] [place] [address] Neurology 07/19/14 Michelle Henderson I, RN Nurse Coordinator Neurology 07/19/14 Cathie Lucero NP [address] [place] [address] Clinic Shellfish Manager Cardiology 07/19/14 Rio Jaquez MD [address] [place] [address]853 Family Practice 10/15/14 Jemima Jaramillo MD [address] [place] [address] phlebotomist prn 11/20/14 Rudolph Leal MD [address] [place] [address] 48[address] Student in organized health care education/training program 11/27/14 07/04/18 Kelley Chin, TANIA [facility] [address] [place], [place] 169215 Nurse Coordinator Cardiology 11/04/15 Sydnee Saleem MD [address] [facility] 508 [place], [place] 485[address] Cardiology 11/04/15 Eduin Fraga MD [address] [facility] 480 [place], [place] 2[address]25 Hematology 09/17/16 02/25/17 Alexandria Nelson RN Nurse Coordinator Hematology & Oncology 09/17/16 02/25/17 Karlene Moya MD [address] [place] [address] [phone] Ophthalmology 06/24/17 Wilbert Quintero, OD [address] [place] [address] [phone] Optometry 06/24/17 Rod Gauthier DPM [address] [place] [address] [phone] Conditioning Room Worker Primary Podiatric Medicine 06/21/18 Kerrie Verdin PA-C [address] [place] [address] [phone] Physician Outpatient Therapist Physician Outpatient Therapist 06/21/1808/07 Nallely Hogue, RN Registered Nurse 02/20/19 11/23/22 Larisa Vargas, TANIA Specialty Shellfish Manager Cardiology 04/18/19 03/06/22 Rio Jaquez MD 909 [facility] 4 [place], [place] 6[address]15 Assigned PCP 12/28/19 11/16/20 Ruth Yarbrough MD [address] [facility] 101 [place], [place] [phone] Assigned Endocrinology Provider 05/31/20 09/28/20 Francisco Lott MD [address] [place] [address] 88 [place], [place] [phone] Assigned Rheumatology Provider 05/31/20 12/13/21 Frida Grace MD [address] [place] [address] JASON ANDERSON [phone] Assigned Pediatric Specialist Provider 05/31/20 09/08/20 Sydnee Saleem MD [address] [place] [address] [phone] Assigned Heart and Vascular Provider 05/31/20 10/22/20 Greg Ortega MD [address] [place] [address] 40971 Assigned Surgical Provider 06/23/20 12/06/21 Frida Grace MD [address] [place] [address] JASON ANDERSON [phone] Assigned Surgical Provider 05/31/20 06/22/20 Jan Mahmood MD 6 [facility] 2A [place], [place] 275135 Gastroenterology 11/05/20 Brandt Quintana MD 1414 [place] [address] Resident 11/05/20 Jan Mahmood MD [address] [facility] 2A [place], [place] [phone] Assigned Gastroenterology Provider 12/01/20 Rio Jaquez MD 909 [facility] 4 [place], [place] [phone] Assigned PCP 11/17/20 09/30/24 Dom Eason MD 717 [facility] [address] [place], [place] 399274 Internal Medicine 12/02/20 Jayla Plaza, RN Specialty Shellfish Manager Hepatology 01/09/21 02/13/24 Jayla Plaza, RN Specialty Shellfish Manager Hepatology 01/10/21 01/10/21 Sydnee [place] [address] [place] [address] [phone] Assigned Heart and Vascular Provider 02/02/21 07/24/22 Phan Coello MD Assigned Neuroscience Provider 02/21/21 11/22/21 Cristian Barragan MD [address] [place] [address] Assigned Infectious Disease Provider 02/21/21 03/06/22 Dom Eason MD 717 [facility] [address] [place] [address] Assigned Nephrology Provider 04/20/21 01/02/22 Jaimie Vernon, RN Specialty Shellfish Manager Cardiology 10/28/21 Ruth Riddle, DPM, Podiatry/Foot and Ankle Surgery [address] [facility] [address] [place] [address] Assigned Musculoskeletal Provider 11/30/21 09/30/23 Luis Arrington MD [address] [place] [address] 85[address] Assigned Neuroscience Provider 11/23/21 01/02/22 Jason Alvares MD [address] [place] [address] 295 [place] [address] Assigned Neuroscience Provider 01/03/22 05/15/22 Marquise Hanley MD [address] [place] [address] 53443 Endocrinology, Diabetes, and Metabolism 03/05/22 Vlad Ramey MD [address] [place] [address] 00580 Cardiovascular Disease 05/07/22 Joesph Crowe MD [address] [place] [address] 92561 Surgery 05/07/22 Luis Arrington MD [address] [place] [address] 15922 Assigned Neuroscience Provider 05/16/22 05/14/23 Michelle Padilla, RN Specialty Shellfish Manager Cardiology 07/03/22 Vlad Ramey MD 9 [place] [address] Assigned Heart and Vascular Provider 07/25/22 05/28/23 Marquise Hanley MD [address] [place] [address] 10156 Assigned Endocrinology Provider 08/15/22 Dom Eason MD 717 [facility] [address] [place] [address] Assigned Nephrology Provider 11/28/22 02/19/23 Wagner Oliver MD [address] [place] [address] Critical Care 12/15/22 Laura Epperson, DISABILITY RATER 717 [facility] [address] [place] [address] Assigned Nephrology Provider 02/20/23 08/30/24 Thom Taveras MD [address] [place] [address] Assigned Cancer Care Provider 02/06/23 08/20/23 Joesph Crowe MD [address] [place] [address] 04796 Surgery 03/17/23 Joesph Crowe MD [address] [place] [address] Assigned Surgical Provider 04/03/23 09/30/24 Adonay Haq MD [address] [place] [address] 90348 Internal Medicine 06/14/23October, Denilson Jackson MD [address] [facility] [address] [place] [address] Assigned Heart and Vascular Provider 05/29/23 11/28/24 Jason Alvares MD [address] [place] [address] 295 [place] [address] Assigned Neuroscience Provider 05/15/23 11/28/24 Ruth Riddle DPM, Podiatry/Foot and Ankle Surgery [address] [facility] [facility] [address] [place], [place] 358167 Assigned Musculoskeletal Provider 10/22/23 Jignesh Mathias MD [address] [place] [address] 52633 Gastroenterology 09/25/24 Adonay Haq MD [address] [place] [address] 26486 Assigned PCP 10/01/24 12/28/24 Omar Carmona MD [address] [place] [address] 59615 Assigned PCP 12/29/24 Jason lAvares MD [address] [place] [address] 295 [place], [place] 833395 Assigned Neuroscience Provider 12/29/24 Jignesh Mathias MD [address] [place] [address] 18936 Assigned Surgical Provider 12/29/24 Ayad Lopez, PhD LP [address] [place] [address] [phone] Assigned Behavioral Health Provider 02/28/25 Gavi Nieto PANavinC [address] [place], [place] 949135 Physician Outpatient Therapist Dermatology 03/19/25 documented as of this encounter
--- OUTSIDE RECORDS SUMMARY | 2025-03-24 20:25 | XMS_ITS | Encounter Summary ---
Author Organization [facility] Address [address] [place] [address] Care Team Providers Care Spinning Supervisor Name Role Phone Rio Jaquez MD Primary Care Provider + [phone] Barry Kilpatrick MD Unavailable Michelle Henderson RN Unavailable [phone] Rio Jaquez MD Unavailable +[phone] Jemima Jaramillo MD Unavailable Unavai Kelley Bautista RN Unavailable +[phone] Sydnee Saleem MD Unavailable +[phone] Karlene Moya MD Unavailable +[phone] Wilbert Quintero OD Unavailable +[phone] Rod Gauthier DPM Unavailable +[phone] Nallely Hogue RN Unavailable Unavailable Larisa Vargas RN Unavailable Unavailable Rio Jaquez MD Unavailable +[phone] Francisco Lott MD Unavailable +[phone] Greg Ortega MD Unavailable +[phone] Jan Mahmood MD Unavailable +[phone] Brandt Quintana MD Unavailable Jan Mahmood MD Unavailable Rio Jaquez MD Unavailable +[phone] Dom Eason MD Unavailable Jayla Plaza RN Unavailable Jayla Plaza RN Unavailable +[phone] Sydnee Saleem MD Unavailable Phan Coello MD Unavailable Unavailable Cristian Barragan MD Unavailable +[phone] Dom Eason MD Unavailable Jaimie Vernon RN Unavailable Unavailable Ruth Riddle DPM, Podiatry /Foot and Ankle Surgery Unavailable Luis Arrington MD Unavailable +[phone] Jason Alvares MD Unavailable Marquise Hanley MD Unavailable +[phone] Vlad Ramey MD Unavailable +[phone] Joesph Crowe MD Unavailable Luis Arrington MD Unavailable +[phone] Michelle Padilla RN Unavailable Unavaila ble Vlad Ramey MD Unavailable Marquise Hanley MD Unavailable +[phone] Dom Eason MD Unavailable Wagner Oliver MD Unavailable Laura Epperson NP Unavailable [phone] Thom Taveras MD Unavailable Joesph Crowe MD Unavailable +[phone] Appiah MD Unavailable Adonay Haq MD Unavailable OctoberDenilson MD Unavailable +[phone] Jason Alvares MD Unavailable Ruth Riddle DPM, Podiatry /Foot and Ankle Surgery Unavailable Omar Carmona MD Primary Care Provider Jignesh Mathias MD Unavailable Adonay Haq MD Unavailable +[phone] Omar Carmona MD Unavailable +[phone] Jason Alvares MD Unavailable Jignesh Mathias MD Unavailable Ayad oLpez PhD LP Unavailable +[phone] Gavi Nieto-C Unavailable +[phone] Encounter Details Date Type Department Care Team (Late st Contact Info) Description 11/06/2020 [facility] Medical Advice [facility] [address] [address] Jan Mahmood MD [address] [place] [address] Social History Tobacco Use Types Packs/Day Years Used Date Smoking Tobacco: Every Day Cigarettes 0.5 42.6 Started: 08/09/1982 Smokeless Tobacco: Never Alcohol Use Standard Drinks/Week Comments Yes 0 (1 standard drink = 0.6 oz pur e alcohol) twice weekly PHQ-2 Answer Date Recorded PHQ-2 Score 1 06/03/2020 Comments No Sex and Gender Information Value Date Recorded Sex Assigned at Female 09/12/2020 12:05 PM CORPORATE RECRUITER Legal Sex Female 3:26 AM CORPORATE RECRUITER Gender Identity Female 09/12/2020 12:05 PM CORPORATE RECRUITER Sexual Orientation Straight 12/19/2021 10 :44 AM CDT Occupation Industry Job Start Date Job End Date on disability for FMS Not on file Not on file Not on file documented as of this encounter Plan of Treatment Upcoming Encounters Date Type Department Care Team (Late st Contact Info) Description 03/26/2025 11:00 AM CDT Therapy Visit [facility] [address] [place] [address] Jason Alvares MD [address] [place] [address] Chaya Castillo, OTR [address] [address] 03/29/2025 10:30 AM CDT Therapy Visit [facility] [address] [facility] [address] [place] [phone] [place] [address] [place] [address] 04/02/2025 11:00 AM CDT Therapy Visit [address] [phone] Jason Alvares MD [address] [place] [address] Chaya Castillo, OTR [facility] [address] [address] 04/11/2025 12:30 PM CDT Office Visit [facility] [address] 4th [place] [phone] Omar Carmona MD [address] [place] [address] 944915 04/12/2025 2:15 PM CDT Therapy [facility] [address] [place] [address] Jason Alvares MD [address] [place] [address] Chaya Castillo OTR [facility] [address] [place] [address] 04/16/2025 11:00 AM CDT Therapy Visit [facility] [address] [facility] [address] Jason Alvares MD [address] [place] [address] Chaya Castillo [facility] [address] [place] [address] 04/23/2025 11:00 AM CDT Therapy Visit [facility] [address] Jason Alvares MD [address] [place] [address] Chaya Castillo OTR [facility] 150 [facility] [place] [address] 04/30/2025 11:00 AM CDT Therapy Visit [facility] 150 [facility] [phone] Jason Alvares MD [address] [place] [address] Chaya Castillo OTR [facility] [address] [facility] [place] [address] 05/15/2025 12:30 PM CDT Office Visit [address] [phone] Marquise Hanley MD [address] [place] [address] 06/08/2025 9:15 AM CDT Office Visit [facility] [address] [phone] Jignesh Mathias MD [address] [place] [address] 810105 11/05/2025 1:45 PM CDT Office Visit [facility] [address] 3rd [place] [phone] Gavi Nieto PA-C Dermatology [address] [place] [address] documented as of this encounter Goals Goal [...] Depression Total Score: 12 021 9:43 AM CORPORATE RECRUITER documented as of this encounter Care Teams Spinning Supervisor Relationship Specialty Start Date End Date Rio Jaquez MD [address] [place] [address] PCP - General Family Practice 12/02/10 07/13/24 Omar Carmona MD [address] [place] [address] 093215 PCP - General Family Medicine 07/14/24 Barry Kilpatrick MD [address] [place] [address] [id number] [place], [place] 953755 Neurology 07/19/14 Michelle Henderson I, RN Nurse Coordinator Neurology 07/19/14 Rio Jaquez MD [address] [place] [address] 4 [place], [place] [phone] Family Practice 10/15/14 Jemima Jaramillo MD antisqueak applier 11/20/14 Kelley Chin, TANIA [address] 699135 Nurse Coordinator Cardiology 11/04/15 Sydnee Saleem MD 420 [facility] 508 [place], [place] 015545 Cardiology 11/04/15 Karlene Moya MD [address] [place] [address] 371345 Ophthalmology 06/24/17 Wilbert Quintero, OD [address] [place] [address] 795095 Optometry 06/24/17 Rod Gauthier DPM [address] [place] [address] Shank Burnisher Primary Podiatric Medicine 06/21/18 Nallely Hogue, RN Registered Nurse 02/20/19 11/23/22 Larisa Vargas, RN Specialty Aquaculturist Cardiology 04/18/19 03/06/22 Rio Jaquez MD [address] [place] [address] Assigned PCP 12/28/19 11/16/20 Francisco Lott MD [address] [place] [address] Assigned Rheumatology Provider 05/31/20 12/13/21 Greg Ortega MD [address] [place] [address] Assigned Surgical Provider 06/23/20 12/06/21 Jan Mahmood MD [address] [place] [address] Gastroenterology 11/05/20 Brandt Quintana MD [address] [place] [address] Resident 11/05/20 Jan Mahmood MD [address] [place] [address] Assigned Gastroenterology Provider 12/01/20 Rio Jaquez MD [address] [place] [address] Assigned PCP 11/17/20 09/30/24 Dom Eason MD [address] [place] [address] Internal Medicine 12/02/20 Jayla Plaza, RN Specialty Aquaculturist Hepatology 01/09/21 02/13/24 Jayla Plaza, RN Specialty Aquaculturist Hepatology 01/10/21 01/10/21 Sydnee Saleem MD [address] [place] [address] [phone] Assigned Heart and Vascular Provider 02/02/21 07/24/22 Phan Coello MD Assigned Neuroscience Provider 02/21/21 11/22/21 Cristian Barragan MD [address] [place] [address] Assigned Infectious Disease Provider 02/21/21 03/06/22 Dom Eason MD [address] [place] [address] Assigned Nephrology Provider 04/20/21 01/02/22 Jaimie Vernon, TANIA Specialty Aquaculturist Cardiology 10/28/21 Ruth Riddle DPM, Podiatry/Foot and Ankle Surgery [address] [address] Assigned Musculoskeletal Provider 11/30/21 09/30/23 Luis Arrington MD [address] [place] [address] Assigned Neuroscience Provider 11/23/21 01/02/22 Jason Alvares MD [address] [place] [address] 295[address] Assigned Neuroscience Provider 01/03/22 05/15/22 Marquise Hanley MD [address] [place] [address] Endocrinology, Diabetes, and Metabolism 03/05/22 Vlad Ramey MD [address] [place] [address]12 Cardiovascular Disease 05/07/22 Joesph Crowe MD [address] [place] [address] Surgery 05/07/22 Luis Arrington MD [address] [place] [address] 47576 Assigned Neuroscience Provider 05/16/22 05/14/23 Michelle Padilla RN Specialty Aquaculturist Cardiology 07/03/22 Vlad Ramey MD [address] [place] [address] 25913 Assigned Heart and Vascular Provider 07/25/22 05/28/23 Marquise Hanley MD [address] [place] [address] Assigned Endocrinology Provider 08/15/22 Dom Eason MD [address]17 [facility] [address]EL [address] [place] [address] Assigned Nephrology Provider 11/28/22 02/19/23 Wagner Oliver MD [address] [place] [address] Critical Care 12/15/22 Laura Epperson, LULU [address]17 [facility] [address] [place] [address] Assigned Nephrology Provider 02/20/23 08/30/24 Thom Taveras MD [address] [facility], [address] [place] [address] Assigned Cancer Care Provider 02/06/23 08/20/23 Joesph Crowe MD 909 [place] [address] Surgery 03/17/23 Joesph Crowe MD 909 [place] [address] Assigned Surgical Provider 04/03/23 09/30/24 Adonay Haq MD 909 [place] [address] Internal Medicine 06/14/23OctoberDenilson MD 6[address] [facility] [address] [place] [address] Assigned Heart and Vascular Provider 05/29/23 11/28/24 Jason Alvares MD 420 [facility] 295 [place] [address] Assigned Neuroscience Provider 05/15/23 11/28/24 Ruth Riddle, DPM, Podiatry/Foot and Ankle Surgery [address] [place] [address] Assigned Musculoskeletal Provider 10/22/23 Jignesh Mathias MD [address] [place] [address] 297775 Gastroenterology 09/25/24 Adonay Haq MD [address] [place] [address] 796495 Assigned PCP 10/01/24 12/28/24 Omar Carmona MD [address] [place] [address] 895575 Assigned PCP 12/29/24 Jason Alvares MD [address] [place] [address] 295 [place], [place] 935565 Assigned Neuroscience Provider 12/29/24 Jignesh Mathias MD [address] [place] [address] 51894 Assigned Surgical Provider 12/29/24 Ayad Lopez, PhD LP [address] [place] [address] 291995 Assigned Behavioral Health Provider 02/28/25 Gavi Nieto, PA-C [address] [place] [address] Physician Mergers And Acquisitions Associate Dermatology 03/19/25 documented as of this encounter
--- OUTSIDE RECORDS SUMMARY | 2025-03-24 20:25 | XMS_ITS | Encounter Summary ---
Author Organization [facility] Address [address] [place] [address] Care Team Providers Care Filling Hauler Name Role Phone Rio Jaquez MD Primary Care Provider Barry Kilpatrick MD Unavailable Michelle Henderson RN Unavailable [phone] Rio Jaquez MD Unavailable +[phone] Jemima Jaramillo MD Unavailable Unavai Kelley Bautista RN Unavailable +[phone] Sydnee Saleem MD Unavailable +[phone] Karlene Moya MD Unavailable +[phone] Wilbert Quintero OD Unavailable +[phone] Rod Gauthier DPM Unavailable +[phone] Nallely Hogue RN Unavailable Unavailable Jan Mahmood MD Unavailable +[phone] Brandt Quintana MD Unavailable Jan Mahmood MD Unavailable +[phone] Rio Jaquez MD Unavailable +[phone] Dom Eason MD Unavailable +[phone] Jayla Plaza RN Unavailable +[phone] Jaimie eVrnon RN Unavailable Unavailable Ruth Riddle DPM, Podiatry /Foot and Ankle Surgery Unavailable Marquise Hanley MD Unavailable +[phone] Vlad Ramey MD Unavailable +[phone] Joesph Crowe MD Unavailable +[phone] Luis Arrington MD Unavailable +[phone] Michelle Padilla RN Unavailable Unavaila ble Vlad Ramey MD Unavailable +[phone] Marquise Hanley MD Unavailable +[phone] Dom Eason MD Unavailable +[phone] Wagner Oliver MD Unavailable +[phone] Laura Epperson NP Unavailable +[phone] Thom Taveras MD Unavailable +[phone] Joesph Crowe MD Unavailable +[phone] Joesph Crowe MD Unavailable +[phone] Adonay Haq MD Unavailable +[phone] Denilson Srinivasan MD Unavailable + [phone] Jason Alvares MD Unavailable Ruth Riddle DPM, Podiatry /Foot and Ankle Surgery Unavailable Omar Carmona MD Primary Care Provider +[phone] Jignesh Mathias MD Unavailable Adonay Haq MD Unavailable +1- Omar Carmona MD Unavailable +[phone] Jason Alvares MD Unavailable Jignesh Mathias MD Unavailable Ayad Lopez PhD LP Unavailable +[phone] Gavi Nieto PA-C Unavailable [phone] Reason for Visit * Reason Onset Date Comments Clinic Care Coordination - Follow-up 10/12/2022 Encounter Details Date Type Department Care Team (Latest Contact Info) Description 10/12/2022 My[facility] Medical Advice [address] [address] October, Denilson Jackson MD [address] [facility] [address] [place] [address] Clinic Care Coordination - Follow-up Social History Tobacco Use Types Packs/Day Years [...] than three times a week 08/27/2021 Attends Sikhism Services Not on file 08/27 Do you belong to any clubs o r organizations such as mandaen groups, unions, fraternal or athletic groups, or [...] PHQ-2 Answer Date Recorded PHQ-2 Score 2 08/12/2022 [facility] - Occupational [...] Sex Assigned at Female 09/12/2020 12:05 PM AUTO FLEET MAINTENANCE MANAGER Legal Sex Female 3:26 AM AUTO FLEET MAINTENANCE MANAGER Gender Identity Female 09/12/2020 12:05 PM AUTO FLEET MAINTENANCE MANAGER Sexual Orientation Straight 12/19/2021 10 :44 [...] suspected to have Coronavirus/COVID-19? No / Unsure 10/06/2022 12:20 PM AUTO FLEET MAINTENANCE MANAGER documented as of this encounter Plan of Treatment Upcoming Encounters Date Type Department Care Team (Late st Contact Info) Description 03/26/2025 11:00 AM CDT Therapy Visit [address] [phone] Jason Alvares MD 420 [facility] 295 [place], [place] 203135 Chaya Castillo OTR [address] [address] 03/29/2025 10:30 AM CDT Therapy Visit [facility] [address] [place] [phone] [place] [address] [address] [place], [place] [address] 04/02/2025 11:00 AM CDT Therapy Visit [address] [phone] Jason Alvares MD [address] [place] [address] Chaya Castillo, OTR [facility] 150 [facility] [place] [address] 04/11/2025 12:30 PM CDT Office Visit [facility] [address] 4th [place] [address] Omar Carmona MD [address] [place] [address] 001635 04/12/2025 2:15 PM CDT Therapy [facility] 150 [place] [phone] Jason Alvares MD [address] [place] [address] Chaya Castillo OTR [facility] 150 [place] [address] 04/16/2025 11:00 AM CDT Therapy Visit [facility] 150 [place] [phone] Jason Alvares MD [address] [place] [address] Chaya Castillo OTR [facility] 150 [place] [address] 04/23/2025 11:00 AM CDT Therapy Visit [facility] [place] [address] Jason Alvares MD [address] [place] [address] Chaya Castillo OTR [address] [address] 04/30/2025 11:00 AM CDT Therapy Visit [facility] Services [address] [phone] Jason Alvares MD [address] [place] [address] Chaya Castillo OTR [address] [address] 05/15/2025 12:30 PM CDT Office Visit [address] [phone] Marquise Hanley MD [address] [place] [address] 908735 06/08/2025 9:15 AM CDT Office Visit [facility] Hepatology Clinic [address] [phone] Jignesh Mathias MD [address] [place] [address] 996845 11/05/2025 1:45 PM CDT Office Visit [facility] Dermatology Clinic [address] 3rd [place] [address] Gavi Nieto PA-C Dermatology [address] [place] [address] documented as of this encounter Goals Goal [...] Noted Time PHQ-9 Depression Total Score: 6 05/07/20 8:40 AM CDT documented as of this encounter Care Teams Filling Hauler Relationship Specialty Start Date End Date Rio Jaquez MD [address] [place] [address] PCP - General Family Practice 12/02/10 07/13/24 Omar Carmona MD [address] [place] [address] PCP - General Family Medicine 07/14/24 Barry Kilpatrick MD [address] [place] [address] [id number] [place] [address] Neurology 07/19/14 Michelle Henderson RN Nurse Coordinator Neurology 07/19/14 Rio Jaquez MD [address] [place] [address] 240475 Family Practice 10/15/14 Jemima Jaramillo MD light rail signal technician 11/20/14 Kelley Chin, TANIA [address] 084355 Nurse Coordinator Cardiology 11/04/15 Sydnee Saleem MD 420 [facility] 508 [place] [address] Cardiology 11/04/15 Karlene Moya MD 516 [place] [address] Ophthalmology 06/24/17 Wilbert Quintero, OD 909 [place], [place] 054765 Optometry 06/24/17 Rod Gauthier DPM 909 [place], [place] 628435 Bar Examiner Primary Podiatric Medicine 06/21/18 Nallely Hogue, RN Registered Nurse 02/20/19 11/23/22 Jan Mahmood MD [address] [place] [address] 2[address] [place], [place] [address]65 Gastroenterology 11/05/20 Brandt Quintana MD [address] [place] [address] Resident 11/05/20 Jan Mahmood MD 6 [facility] 2A [place] [address] Assigned Gastroenterology Provider 12/01/20 Rio Jaquez MD 909 [facility] 4 [place] [address] Assigned PCP 11/17/20 09/30/24 Dom Eason MD [address] [place] [address] Internal Medicine 12/02/20 Jayla Plaza, RN Specialty Fur Finisher Tailor Hepatology 01/09/21 02/13/24 Jaimie Vernon, TANIA Specialty Fur Finisher Tailor Cardiology 10/28/21 Ruth Riddle DPM, Podiatry/Foot and Ankle Surgery [address] [address] Assigned Musculoskeletal Provider 11/30/21 09/30/23 Marquise Hanley MD [address] [place] [address] Endocrinology, Diabetes, and Metabolism 03/05/22 Vlad Ramey MD [address] [place] [address] 088375 Cardiovascular Disease 05/07/22 Joesph Crowe MD [address] [place] [address]55 Surgery 05/07/22 Luis Arrington MD [address] [place] [address] Assigned Neuroscience Provider 05/16/22 05/14/23 Michelle Padilla, RN Specialty Fur Finisher Tailor Cardiology 07/03/22 Vlad Ramey MD [address] [place] [address] 466195 Assigned Heart and Vascular Provider 07/25/22 05/28/23 Marquise Hanley MD [address] [place] [address] Assigned Endocrinology Provider 08/15/22 Dom Eason MD 717 [facility] [address] [place] [address] Assigned Nephrology Provider 11/28/22 02/19/23 Wagner Oliver MD [address] [place] [address] Critical Care 12/15/22 Laura Epperson NP [address] [place] [address] 1932 [place] [address] Assigned Nephrology Provider 02/20/23 08/30/24 Thom Taveras MD [address] [place] [address], [address] [address] Assigned Cancer Care Provider 02/06/23 08/20/23 Joesph Crowe MD [address] [place] [address] Surgery 03/17/23 Joesph Crowe MD [address] [place] [address] 6[address] Assigned Surgical Provider 04/03/23 09/30/24 Adonay Haq MD [address] [place] [address] Internal Medicine 06/14/23October, Denilson Jackson MD [address] [place] [address] Assigned Heart and Vascular Provider 05/29/23 11/28/24 Jason Alvares MD 420 [facility] 295 [place] [address] Assigned Neuroscience Provider 05/15/23 11/28/24 Ruth Riddle DPM, Podiatry/Foot and Ankle Surgery [address] [place] [address] Assigned Musculoskeletal Provider 10/22/23 Jignesh Mathias MD [address] [place] [address] Gastroenterology 09/25/24 Adonay Haq MD [address] [place] [address] [phone] Assigned PCP 10/01/24 12/28/24 Omar Carmona MD [address] [place] [address] 449335 Assigned PCP 12/29/24 Jason Alvares MD [address] [place] [address] 295 [place] [address] Assigned Neuroscience Provider 12/29/24 Jignesh Mathias MD [address] [place] [address] 98533 Assigned Surgical Provider 12/29/24 Ayad Lopez, PhD LP [address] [place] [address] 735575 Assigned Behavioral Health Provider 02/28/25 Gavi Nieto PA-C 500 [place] [address] Physician Picking Tech Dermatology 03/19/25 documented as of this encounter
--- OUTSIDE RECORDS SUMMARY | 2025-03-24 20:25 | XMS_ITS | Encounter Summary ---
Author Organization [place] Address [address] [place] [address] Care Team Providers Care Search Engine Optimization Consultant Name Role Phone Rio Jaquez MD Primary Care Provider Barry Kilpatrick MD Unavailable Michelle Henderson RN Unavailable [phone] Rio Jaquez MD Unavailable +[phone] Jemima Jaramillo MD Unavailable Unavai Kelley Bautista RN Unavailable +[phone] Sydnee Saleem MD Unavailable +[phone] Karlene Moya MD Unavailable +[phone] Wilbert Quintero OD Unavailable +[phone] Rod Gauthier DPM Unavailable +[phone] Nallely Hogue RN Unavailable Unavailable Jan Mahmood MD Unavailable +[phone] Brandt Quintana MD Unavailable Jan Mahmood MD Unavailable +[phone] Rio Jaquez MD Unavailable +[phone] Dom Eason MD Unavailable +[phone] Jayla Plaza RN Unavailable +[phone] Jaimie [...] Unavailable +[phone] Dom Eason MD Unavailable +[phone] Wagner Oliver MD Unavailable +[phone] Laura Epperson NP Unavailable +[phone] Thom aTveras MD Unavailable +[phone] Joesph Crowe MD Unavailable +[phone] Joesph Crowe MD Unavailable +[phone] Adonay Haq MD Unavailable +[phone] Denilson Srinivasan MD Unavailable + [phone] Jason Alvares MD Unavailable Ruth Riddle DPM, Podiatry /Foot and Ankle Surgery Unavailable Omar Carmona MD Primary Care Provider +[phone] Jignesh Mathias MD Unavailable dAonay Haq MD Unavailable +1- Omar Carmona MD Unavailable +[phone] Jason Alvares MD Unavailable Jignesh Mathias MD Unavailable Ayad Lopez PhD LP Unavailable +[phone] Gavi Nieto PA-C Unavailable +[phone] Encounter Details Date Type Department Care Team (Late st Contact Info) Description 09/18/2022 MyC Medical Advice [facility] [address] [address] Jayla Plaza, RN Social History Tobacco Use Types Packs/Day [...] Answer Date Recorded PHQ-2 Score 2 08/12/2022 [facility] Occup[facility] ional Health - Occupational Stress [...] place to sleep or slept in a senior living (including now)? No 08/27/2021 Comments No Sex and Gender Information Value Date Recorded Sex Assigned at Female 09/12/2020 12:05 PM HOSPICE CARE CONSULTANT Legal Sex Female 3:26 AM HOSPICE CARE CONSULTANT Gender Identity Female 09/12/2020 12:05 PM HOSPICE CARE CONSULTANT Sexual Orientation Straight 12/19/2021 10 :44 [...] suspected to have Coronavirus/COVID-19? No / Unsure 09/17/2022 10:41 AM HOSPICE CARE CONSULTANT documented as of this encounter Plan of Treatment Upcoming Encounters Date Type Department Care Team (Late st Contact Info) Description 03/26/2025 11:00 AM CDT Therapy Visit [address] [phone] Jason Alvares MD [address] [place] [address] 249925 Chaya Castillo OTR [facility] [address] [address] 03/29/2025 10:30 AM CDT Therapy Visit [facility] [address] [facility] [address] [place] [address] [phone] [place] [address] [address] [place], [place] 559407 04/02/2025 11:00 AM CDT Therapy Visit [address] [phone] Jason Alvares MD [address] [place] [address] 123235 Chaya Castillo, OTR [facility] [address] [place] [address] 04/11/2025 12:30 PM CDT Office Visit [facility] [address] 4th [place] [phone] Omar Carmona MD [address] [place] [address] 04/12/2025 2:15 PM CDT Therapy Visit [facility] 150 [place] [phone] Jason Alvares MD [address] [place] [address] Chaya Castillo OTR [facility] 150 [place] [address] 04/16/2025 11:00 AM CDT Therapy Visit [facility] 150 [place] [phone] Jason Alvares MD [address] [place] [address] 917025 Chaya Castillo OTR [facility] 150 [place] [address] 04/23/2025 11:00 AM CDT [facility] 150 [place] [phone] Jason Alvares MD [address] [place] [address] Chaya Castillo OTR [facility] 150 [place] [address] 04/30/2025 11:00 AM CDT Therapy Visit [facility] 150 [place] [phone] Jason Alvares MD [address] [place] [address] 295 [place] [address] Chaya Castillo, OTR [facility] 150 [place] [address] 05/15/2025 12:30 PM CDT Office Visit [address] [phone] Marquise Hanley MD [address] [place] [address] 06/08/2025 9:15 AM CDT Office Visit [facility] [address] [phone] Jignesh Mathias MD [address] [place] [address] 11/05/2025 1:45 PM CDT Office Visit [facility] [address]rd [place] [phone] Gavi Nieto PA-C Dermatology [address] [place] [address] [phone] documented as of this encounter Goals Goal [...] Time PHQ-9 Depression Total Score: 6 05/07/20 22 8:40 AM CDT documented as of this encounter Care Teams Search Engine Optimization Consultant Relationship Specialty Start Date End Date Rio Jaquez MD [address] [place] [address] 41343 PCP - General Family Practice 12/02/10 07/13/24 Omar Carmona MD [address] [place] [address] 84909 PCP - General Family Medicine 07/14/24 Barry Kilpatrick MD [address] [place] [address] [id number] [place], [place] 433195 Neurology 07/19/14 Michelle Henderson I, RN Nurse Coordinator Neurology 07/19/14 Rio Jaquez MD [address] [place] [address] [phone] Family Practice 10/15/14 Jemima Jaramillo MD bundle tier and labeler 11/20/14 Kelley Chin, TANIA [address] 440245 Nurse Coordinator Cardiology 11/04/15 Sydnee Saleem MD [address] [place] [address] 508 [place], [place] 539585 Cardiology 11/04/15 Karlene Moya MD 516 [place] [address] Ophthalmology 06/24/17 Wilbert Quintero OD 9 [place], [place] 740575 Optometry 06/24/17 Rod Gauthier DPM 9 [place], [place] 951765 Head Host/Hostess Primary Podiatric Medicine 06/21/18 Nalelly Hogue, RN Registered Nurse 02/20/19 11/23/22 Jan Mahmood MD [address] [place] [address] 97[address] MD Gastroenterology 11/05/20 Brandt Quintana MD [address] [place] [address] Resident 11/05/20 Jan Mahmood MD [address] [place] [address]46 Assigned Gastroenterology Provider 12/01/20 Rio Jaquez MD [address] 650115 Assigned PCP 11/17/20 09/30/24 Dom Eason MD 717 [facility] [address]EL 353 [place], [place] 425414 Internal Medicine 12/02/20 Jayla Plaza, RN Specialty Plate Keeper Hepatology 01/09/21 02/13/24 Jaimie [place], RN Specialty Plate Keeper Cardiology 10/28/21 Ruth Riddle, DPM, Podiatry/Foot and Ankle Surgery [address] [place] [address] Assigned Musculoskeletal Provider 11/30/21 09/30/23 Marquise Hanley MD [address] [place] [address] 161605 Endocrinology, Diabetes, and Metabolism 03/05/22 Vlad Ramey MD [address] [place] [address] [phone] Cardiovascular Disease 05/07/22 Joesph Crowe MD [address] [place] [address] 773685 Surgery 05/07/22 Luis Arrington MD [address] [place] [address] 984035 Assigned Neuroscience Provider 05/16/22 05/14/23 Michelle Padilla RN Specialty Plate Keeper Cardiology 07/03/22 Vlad Ramey MD [address] [place] [address] 861585 Assigned Heart and Vascular Provider 07/25/22 05/28/23 Marquise Hanley MD [address] [place] [address] 952325 Assigned Endocrinology Provider 08/15/22 Dom Eason MD 717 [facility] 353 [place] [address] Assigned Nephrology Provider 11/28/22 02/19/23 Wagner Oliver MD [address] [place] [address] Critical Care 12/15/22 Laura Epperson NP 717 [facility] 1932 [place] [address] Assigned Nephrology Provider 02/20/23 08/30/24 Thom Taveras MD [facility] [address] [place] [address] Assigned Cancer Care Provider 02/06/23 08/20/23 Joesph Crowe MD [address] [place] [address] 28067 Surgery 03/17/23 Joesph Crowe MD [address] [place] [address] 17360 Assigned Surgical Provider 04/03/23 09/30/24 Adonay Haq MD [address] [place] [address] 510625 Internal Medicine 06/14/23OctoberDenilson MD [address] [facility] [address] [place] [address] Assigned Heart and Vascular Provider 05/29/23 11/28/24 Jason Alvares MD [address] [place] [address] 45449 Assigned Neuroscience Provider 05/15/23 11/28/24 Ruth Riddle, DPM, Podiatry/Foot and Ankle Surgery [address] R[address]IG[address]Z [address] [place] [address]233 Assigned Musculoskeletal Provider 10/22/23 Jignesh Mathias MD [address] [place] [address] Gastroenterology 09/25/24 Adonay Haq MD [address] [place] [address] 06208 Assigned PCP 10/01/24 12/28/24 Omar Carmona MD [address] [place] [address] 437865 Assigned PCP 12/29/24 Jason Alvares MD [address] [place] [address] 27952 Assigned Neuroscience Provider 12/29/24 Jignesh Mathias MD [address] [place] [address] 992585 Assigned Surgical Provider 12/29/24 Ayad Lopez, PhD LP [address] [place] [address] 375215 Assigned Behavioral Health Provider 02/28/25 Gavi Nieto PA-C 500 [place] [address] Physician Cook Jelly Dermatology 03/19/25 documented as of this encounter
--- OUTSIDE RECORDS SUMMARY | 2025-03-24 20:25 | XMS_ITS | Encounter Summary ---
Author Organization [place] Address [address] [place] [address] Care Team Providers Care Grid Molder Name Role Phone Rio Jaquez MD Primary Care Provider Barry Kilpatrick MD Unavailable Michelle Henderson I RN Unavailable [phone] Rio Jaquez MD Unavailable +[phone] Jemima Jaramillo MD Unavailable Unavai Kelley Bautista RN Unavailable [phone] Sydnee Saleem MD Unavailable +[phone] Karlene Moya MD Unavailable [phone] Wilbert Quintero OD Unavailable +[phone] Rod Gauthier DPM Unavailable +[phone] Jan Mahmood MD Unavailable [phone] Brandt Quintana MD Unavailable +[phone] Jan Mahmood MD Unavailable +[phone] Rio Jaquez MD Unavailable +[phone] Dom Eason MD Unavailable + [phone] Glynn, Jaimie RN Unavailable Unavailable Marquise Han[place] MD Unavailable +[phone] Vlad Ramey MD Unavailable +[phone] Joesph Crowe MD Unavailable + [phone] Michelle Padilla RN Unavailable Unavaila ble Marquise Hanley MD Unavailable +[phone] Wagner Oliver MD Unavailable +[phone] Laura Epperson NP Unavailable +[phone] Joesph Crowe MD Unavailable +[phone] Joesph Crowe MD Unavailable + [phone] Adonay Haq MD Unavailable [phone] Denilson Srinivasan MD Unavailable + [phone] Jason Alvares MD Unavailable Ruth Riddle DPM, Podiatry /Foot and Ankle Surgery Unavailable Omar Carmona MD Primary Care Provider [phone] Jignesh Mathias MD Unavailable Adonay Haq MD Unavailable [phone] Omar Carmona MD Unavailable +[phone] Jason Alvares MD Unavailable Jignesh Mathias MD Unavailable Ayad Lopez PhD LP Unavailable +[phone] Gavi Nieto PA-C Unavailable [phone] Encounter Details Date Type Department Care Team (Late st Contact Info) Description 06/12/2024 [facility] [address] [phone] Jan Mahmood MD [address] [place] [address] Social History Tobacco Use Types Packs/Day Years [...] than three times a week 08/27/2021 Attends [employer] Not on file 08/27 Do you [...] Answer Date Recorded PHQ-2 Score 2 02/28/2024 [facility] [...] Sex Assigned at Female 09/12/2020 12:05 PM PAN WASHER Legal Sex Female 3:26 AM PAN WASHER Gender Identity Female 09/12/2020 12:05 PM PAN WASHER Sexual Orientation Straight 12/19/2021 10 :44 AM [...] Description 03/26/2025 11:00 AM CDT Therapy Visit [address] [phone] Jason Alvares MD [address] [place] [address] Chaya Castillo OTR [facility] 150 [place] [address] 03/29/2025 10:30 AM CDT Therapy Visit [facility] [address] [place] [phone] [place] [address] [place], [place] 297437 04/02/2025 11:00 AM CDT Therapy [facility] [address] [place] [address] [phone] Jason Alvares MD [address] [place] [address] 943645 Chaya Castillo [facility]TR [facility] 150 [place] [address] 04/11/2025 12:30 PM CDT Office Visit [facility] [address] 4th [place] [phone] Omar Carmona MD [address] [place] [address] 839435 04/12/2025 2:15 PM CDT Therapy [facility] 150 [place] [phone] Jason Alvares MD [address] [place] [address] 17[address] Chaya Castillo OTR [facility] 150 [place] [address] 04/16/2025 11:00 AM CDT Therapy Visit [facility] 150 [place] [address] Jason Alvares MD [address] [address] Chaya Castillo OTR [facility] 150 [place] [address] 04/23/2025 11:00 AM CDT Therapy Visit [facility] 150 [place] [address] Jason Alvares MD [address] [place] [address] Chaya Castillo OTR [facility] 150 [place] [address] 04/30/2025 11:00 AM CDT Therapy Visit [address] [phone] Jason Alvares MD [address] [place] [address] Chaya Castillo OTR [facility] 150 [place] [address] 05/15/2025 12:30 PM CDT Office Visit [address] [phone] Marquise Hanley MD [address] [place] [address] 06/08/2025 9:15 AM CDT Office Visit [facility] [address] [phone] Jignesh Mathias MD [address] [place] [address] 11/05/2025 1:45 PM CDT Office Visit [facility] [address] 3rd [place] [address] Gavi Nieto PA-C Dermatology [address] [place] [address] [phone] documented as of this encounter Goals Goal [...] documented as of this encounter Care Teams Grid Molder Relationship Specialty Start Date End Date Rio Jaquez MD [address] [place] [address] [address] [place] [address] PCP - General Family Practice 12/02/10 07/13/24 Omar Cramona MD [address] [place] [address]8558 PCP - General Family Medicine 07/14/24 Barry Kilpatrick MD [address] [place] [address] [id number] [place] [address] Neurology 07/19/14 Michelle Henderson I, RN Nurse Coordinator Neurology 07/19/14 Rio Jaquez MD [address] [place] [address] 4 [place], [place] 200825 Family Practice 10/15/14 Jemima Jaramillo MD color drum worker 11/20/14 Kelley Chin, TANIA [address] 616985 Nurse Coordinator Cardiology 11/04/15 Sydnee Saleem MD [address] [place] [address] 508 [place], [place] 718765 Cardiology 11/04/15 Karlene Moya MD [address] [place] [address] 083965 Ophthalmology 06/24/17 Wilbert Quintero, OD [address] [place] [address] 998955 Optometry 06/24/17 Rod Gauthier DPM [address] [place] [address] 066225 Burner Hand Primary Podiatric Medicine 06/21/18 Jan Mahmood MD [address] [place] [address] 2A [place], [place] 809215 Gastroenterology 11/05/20 Brandt Quintana MD [address] [place] [address]70 Resident 11/05/20 Jan Mahmood MD 516 [facility] 2A [place] [address] Assigned Gastroenterology Provider 12/01/20 Rio Jaquez MD [address] [place] [address] 91650 Assigned PCP 11/17/20 09/30/24 Dom Eason MD 7 [facility] 353 [place] [address] Internal Medicine 12/02/20 Jaimie [place], TANIA Specialty Agriculture Research Director Cardiology 10/28/21 Marquise Hanley MD [address] [place] [address] 01631 Endocrinology, Diabetes, and Metabolism 03/05/22 Vlad Ramey MD [address] [place] [address] 57999 Cardiovascular Disease 05/07/22 Joesph Crowe MD [address] [place] [address] 83249 Surgery 05/07/22 Michelle Padilla, RN Specialty Agriculture Research Director Cardiology 07/03/22 Marquise Hanley MD [address] [place] [address] 78465 Assigned Endocrinology Provider 08/15/22 Wagner Oliver MD [address] [place] [address] Critical Care 12/15/22 Laura Epperson NP 717 [facility] 1932 [place] [address] Assigned Nephrology Provider 02/20/23 08/30/24 Joesph Crowe MD [address] [place] [address] 94796 Surgery 03/17/23 Joesph Crowe MD [address] [place] [address] 99905 Assigned Surgical Provider 04/03/23 09/30/24 Adonay Haq MD 909 [place], [place] 957305 Internal Medicine 06/14/23OctoberDenilson MD [address] [facility] [address] [place] [address] Assigned Heart and Vascular Provider 05/29/23 11/28/24 Jason Alvares MD 420 [facility] 295 [place] [address] Assigned Neuroscience Provider 05/15/23 11/28/24 Ruth Riddle DPM, Podiatry/Foot and Ankle Surgery [address] [place] [address] Assigned Musculoskeletal Provider 10/22/23 Jignesh Mathias MD [address] [place] [address] 17321 Gastroenterology 09/25/24 Adonay Haq MD [address] [place] [address] 496415 Assigned PCP 10/01/24 12/28/24 Omar Carmona MD [address] [place] [address] 648755 Assigned PCP 12/29/24 Jason Alvares MD [address] [place] [address] 221985 Assigned Neuroscience Provider 12/29/24 Jignesh Mathias MD [address] [place] [address] 18885 Assigned Surgical Provider 12/29/24 Ayad Lopez, PhD LP [address] [place] [address] [phone] Assigned Behavioral Health Provider 02/28/25 Gavi Nieto PANavinC [address] [place] [address] 117835 Physician Knitting Teacher Dermatology 03/19/25 documented as of this encounter
--- OUTSIDE RECORDS SUMMARY | 2025-03-24 20:25 | XMS_ITS | Encounter Summary ---
Author Organization [facility] Address [address] [place] [address] Care Team Providers Care Blow Torch Burner Name Role Phone Rio Jaquez MD Primary Care Provider Barry Kilpatrick MD Unavailable Michelle Henderson I RN Unavailable [phone] Rio Jaquez MD Unavailable +[phone] Jemima Jaramillo MD Unavailable Unavai Kelley Bautista RN Unavailable +[phone] Sydnee Saleem MD Unavailable +[phone] Kalrene Moya MD Unavailable +[phone] Wilbert Quintero OD Unavailable +[phone] Rod Gauthier DPM Unavailable +[phone] Jan Mahmood MD Unavailable [phone] Brandt Quintana MD Unavailable Jan Mahmood MD Unavailable +[phone] Rio Jaquez MD Unavailable +[phone] Dom Eason MD Unavailable + [phone] Atkinson, Jaimie RN Unavailable Unavailable Marquise Hanley MD Unavailable +[phone] Vlad Ramey MD Unavailable +[phone] Joesph Crowe MD Unavailable + [phone] Michelle Padilla RN Unavailable Unavaila ble Marquise Hanley MD Unavailable +[phone] Wagner Oliver MD Unavailable +[phone] Laura Eppesron NP Unavailable +[phone] Joesph Crowe MD Unavailable + [phone] Joesph Crowe MD Unavailable + [phone] Adonay Haq MD Unavailable +[phone] Denilson Srinivasan MD Unavailable + [phone] Jason Alvares MD Unavailable Ruth RiddleM, Podiatry /Foot and Ankle Surgery Unavailable Omar Carmona MD Primary Care Provider [phone] Jignesh Mathias MD Unavailable Adonay Haq MD Unavailable [phone] Omar Carmona MD Unavailable +[phone] Jason Alvares MD Unavailable Jignesh Mathias MD Unavailable Ayad Lopez PhD LP Unavailable +[phone] Gavi Nieto PA-C Unavailable [phone] Encounter Details Date Type Department Care Team (Late st Contact Info) Description 05/29/2024 [facility] [address] [address] Marquise Hanley MD [address] [place] [address] Social History Tobacco Use Types Packs/Day [...] than three times a week 08/27/2021 Attends Orthodoxy Services Not on file 08/27 Do you belong to any clubs o r organizations such as hindu groups, unions, fraternal or athletic groups, or [...] Answer Date Recorded PHQ-2 Score 2 02/28/2024 [facility] of Occupat ional Health - [...] in an abandoned building, in an overnight senior living, or couch-surfing.) Yes 07/12/2023 Are you worried [...] Sex Assigned at Female 09/12/2020 12:05 PM BOX SEALING MACHINE OPERATOR Legal Sex Female 3:26 AM BOX SEALING MACHINE OPERATOR Gender Identity Female 09/12/2020 12:05 PM BOX SEALING MACHINE OPERATOR Sexual Orientation Straight 12/19/2021 10 [...] Description 03/26/2025 11:00 AM CDT Therapy Visit [facility] [address] [place] [phone] Jason Alvares MD [address] [place] [address] Chaya Castillo OTR [facility] [address] [place] [address] 03/29/2025 10:30 AM CDT Therapy Visit [facility] [address] [place] [phone] [place] [address] MICHAEL [address] [place] [address] 04/02/2025 11:00 AM CDT Therapy Visit [facility] [address] [place] [phone] Jason Alvares MD [address] [place] [address] 320165 Chaya Castillo OTR [facility] [address] [place] [address] 04/11/2025 12:30 PM CDT Office Visit [facility] [address] 4th [place] [phone] Omar Carmona MD [address] [place] [address] 781605 04/12/2025 2:15 PM CDT Therapy Visit [facility] 150 [facility] [place] [phone] Jason Alvares MD [address] [place] [address] Chaya Castillo OTR [facility] [place] [facility] 150 [place] [address] 04/16/2025 11:00 AM CDT [facility] [address] [place] [address] Jason Alvares MD [address] [address] Chaya Castillo OTR [facility] [address] [place] [address] 04/23/2025 11:00 AM CDT Therapy Visit [address] [address] Jason Alvares MD [address] [place] [address] Chaya Castillo OTR [address] [address] 04/30/2025 11:00 AM CDT Therapy Visit [address] [address] Jason Alvares MD [address] [place] [address] Chaya Castillo OTR [facility] [address] 05/15/2025 12:30 PM CDT Office Visit [address] [address] Marquise Hanley MD [address] [place] [address] 06/08/2025 9:15 AM CDT Office Visit [facility] Hepatology Clinic [address] [phone] Jignesh Mathias MD [address] [place] [address] 11/05/2025 1:45 PM CDT Office Visit [facility] Dermatology Clinic [address] 3rd [place] [address] Gavi Nieto PA-C Dermatology [address] [place] [address] [phone] documented as of this encounter Goals Goal [...] documented as of this encounter Care Teams Blow Torch Burner Relationship Specialty Start Date End Date Rio Jaquez MD [address] [place] [address] [address] [place] [address] PCP - General Family Practice 12/02/10 07/13/24 Omar Carmona MD [address] [place] [address] PCP - General Family Medicine 07/14/24 Barry Kilpatrick MD [address] [place] [address] [id number] [place] [address] Neurology 07/19/14 Michelle Henderson I, RN Nurse Coordinator Neurology 07/19/14 Rio Jaquez MD [address] [place] [address] 4 [place], [place] [phone] Family Practice 10/15/14 Jemima Jaramillo MD security systems technician 11/20/14 Kelley Chin, TANIA [address] 811325 Nurse Coordinator Cardiology 11/04/15 Sydnee Saleem MD [address] [place] [address] 508 [place], [place] 319365 Cardiology 11/04/15 Karlene Moya MD [address] [place] [address] 720455 Ophthalmology 06/24/17 Wilbert Quintero, OD [address] [place] [address] 090005 Optometry 06/24/17 Rod Gauthier DPM [address] [place] [address] 725425 Db2 Developer Primary Podiatric Medicine 06/21/18 Jan Mahmood MD [address] [place] [address] Gastroenterology 11/05/20 Brandt Quintana MD [address] [place] [address] Resident 11/05/20 Jan Mahmood MD 516 [facility] 2A [place] [address] Assigned Gastroenterology Provider 12/01/20 Rio Jaquez MD [address] [place] [address] 400185 Assigned PCP 11/17/20 09/30/24 Dom Eason MD [address] [place] [address] Internal Medicine 12/02/20 Jaimie Vernon, TANIA Specialty Geomorphology Teacher Cardiology 10/28/21 Marquise Hanley MD [address] [place] [address] Endocrinology, Diabetes, and Metabolism 03/05/22 Vlad Ramey MD [address] [place] [address] Cardiovascular Disease 05/07/22 Joesph Crowe MD [address] [place] [address] Surgery 05/07/22 Michelle aPdilla, RN Specialty Geomorphology Teacher Cardiology 07/03/22 Marquise Hanley MD [address] [place] [address] Assigned Endocrinology Provider 08/15/22 Wagner Oliver MD [address] [place] [address] Critical Care 12/15/22 Laura Epperson NP 717 [facility] 1932 [place] [address] Assigned Nephrology Provider 02/20/23 08/30/24 Joesph Crowe MD [address] [place] [address] Surgery 03/17/23 Joesph Crowe MD [address] [place] [address] Assigned Surgical Provider 04/03/23 09/30/24 Adonay Haq MD [address] [place] [address] Internal Medicine 06/14/23OctoberDenilson MD [address] [place] [address] [facility] [address] [place] [address] Assigned Heart and Vascular Provider 05/29/23 11/28/24 Jason Alvares MD 420 [facility] 295 [place] [address] Assigned Neuroscience Provider 05/15/23 11/28/24 Ruth Riddle DPM, Podiatry/Foot and Ankle Surgery [address] [place] [address] Assigned Musculoskeletal Provider 10/22/23 Jignesh Mathias MD [address] [place] [address] 360525 Gastroenterology 09/25/24 Adonay Haq MD [address] [place] [address] Assigned PCP 10/01/24 12/28/24 Omar Carmona MD [address] [place] [address] 408815 Assigned PCP 12/29/24 Jason Alvares MD [address] [place] [address] 474255 Assigned Neuroscience Provider 12/29/24 Jginesh Mathias MD [address] [place] [address] Assigned Surgical Provider 12/29/24 Ayad Lopez, PhD LP [address] [place] [address] 596245 Assigned Behavioral Health Provider 02/28/25 Gavi Nieto PA-C [address] [place] [address] 914525 Physician Boat Hop Dermatology 03/19/25 documented as of this encounter
--- OUTSIDE RECORDS SUMMARY | 2025-03-24 20:25 | XMS_ITS | Encounter Summary ---
Author Organization [facility] Address [address] [place] [address] Care Team Providers Care Mold Capper Helper Name Role Phone Barry Kilpatrick MD Unavailable Michelle Henderson RN Unavailable [phone] Rio Jaquez MD Unavailable +[phone] Jemima Jaramillo MD Unavailable Unavai Kelley Bautista RN Unavailable [phone] Sydnee Saleem MD Unavailable [phone] Karlene Moya MD Unavailable +[phone] Wilbert Quintero OD Unavailable +[phone] Rod Gauthier DPM Unavailable [phone] Jan Mahmood MD Unavailable +[phone] Brandt Quintana MD Unavailable Jan Mahmood MD Unavailable +[phone] Rio Jaquez MD Unavailable +[phone] Dom Eason MD Unavailable Jaimie Vernon RN Unavailable Unavailable Marquise Hanley MD Unavailable +[phone] Vlad Ramey MD Unavailable +[phone] Joesph Crowe MD Unavailable +[phone] Michelle Padilla RN Unavailable Unavaila ble Marquise Hanley MD Unavailable +[phone] Wagner Oliver MD Unavailable +[phone] Laura Epperson NP Unavailable +[phone] Joesph Crowe MD Unavailable + [phone] Joesph Crowe MD Unavailable +[phone] Adonay Haq MD Unavailable [phone] OctoberDenilson MD Unavailable + [phone] Jason Alvares MD Unavailable Ruth Riddle DPM, Podiatry /Foot and Ankle Surgery Unavailable Omar Carmona MD Primary Care Provider [phone] Jignesh Mathias MD Unavailable Adonay Haq MD Unavailable [phone] Omar Carmona MD Unavailable [phone] Jason Alvares MD Unavailable Jignesh Mathias MD Unavailable Ayad Lopez PhD LP Unavailable [phone] Gavi Nieto PA-C Unavailable +[phone] Encounter Details Date Type Department Care Team (Late st Contact Info) Description 07/14/2024 [facility] Hepatology Clinic [address] [address] Gracia Akins, RN Social History Tobacco Use Types Packs/Day [...] any clubs o r organizations such as samaritan groups, unions, fraternal or athletic groups, or [...] PHQ-2 Answer Date Recorded PHQ-2 Score 3 07/14/2024 [facility] of Occupat ional Health - Occupational Stress [...] in an abandoned building, in an overnight halfway, or couch-surfing.) Yes 07/12/2023 Are you worried [...] Sex Assigned at Female 09/12/2020 12:05 PM MANAGER ASSET Legal Sex Female 3:26 AM MANAGER ASSET Gender Identity Female 09/12/2020 12:05 PM MANAGER ASSET Sexual Orientation Straight 12/19/2021 10 :44 AM [...] Description 03/26/2025 11:00 AM CDT Therapy Visit [address] [address] Jason Alvares MD [address] [place] [address] 295 [place], [place] 654225 Chaya Castillo, [facility] 150 [place] [address] 03/29/2025 10:30 AM CDT Therapy Visit [facility] [address] [place] [phone] [place] [address] MICHAEL 300 [place] [address] 04/02/2025 11:00 AM CDT Therapy Visit [facility] 150 [place] [phone] Jason Alvares MD [address] [place] [address] 868285 Chaya Castillo OTR FV [address] [address] 04/11/2025 12:30 PM CDT Office Visit [facility] [address] 4th [place] [phone] Omar Carmona MD [address] [place] [address] 776995 04/12/2025 2:15 PM CDT Therapy Visit [facility] 150 [place] [phone] Jason Alvares MD [address] [place] [address] 162285 Chaya Castillo OTR FV [address] [address] 04/16/2025 11:00 AM CDT Therapy Visit [facility] 150 [place] [address] Jason Alvares MD [address] [place] [address] Chaya Castillo, OTR [facility] [place] [facility] 150 [place] [address] 04/23/2025 11:00 AM CDT Therapy Visit [facility] 150 [facility] [place] [address] Jason Alvares MD [address] [place] [address] Chaya Castillo, OTR [facility] 150 [place] [address] 04/30/2025 11:00 AM CDT [facility] [address] [place] [address] Jason Alvares MD [address] [place] [address] Chaya Castillo, OTR [facility] 150 [place] [address] 05/15/2025 12:30 PM CDT Office Visit [address] [phone] Marquise Hanley MD [address] [place] [address] 026875 06/08/2025 9:15 AM CDT Office Visit [facility] Hepatology [address] [phone] Jignesh Mathias MD [address] [place] [address] 11/05/2025 1:45 PM CDT Office Visit [facility] [place] [address] [place] [address] 3rd [place] [phone] Gavi Nieto PA-C Dermatology [address] [place] [address] documented as of this encounter Goals Goal [...] Noted Time PHQ-9 Depression Total Score: 10 024 9:34 AM MANAGER ASSET documented as of this encounter Care Teams Mold Capper Helper Relationship Specialty Start Date End Date Omar Carmona MD [address] [place] [address] 953435 PCP - General Family Medicine 07/14/24 Barry Kilpatrick MD [address] [place] [address] [id number] [place], [place] 738065 Neurology 07/19/14 Michelle Henderson I, RN Nurse Coordinator Neurology 07/19/14 Rio Jaquez MD [address] [place] [address] Family Practice 10/15/14 Jemima Jaramillo MD [address] [place] [address]683 graphic production artist 11/20/14 Kelley Chin, TANIA [facility] [address] [place] [address] Nurse Coordinator Cardiology 11/04/15 Sydnee Saleem MD 420 [facility] 508 [place] [address] Cardiology 11/04/15 Karlene Moya MD [address] [place] [address] Ophthalmology 06/24/17 Wilbert Quintero, OD [address] [place] [address] Optometry 06/24/17 Rod Gauthier DPM [address] [place] [address] 39766 Fisher Sponge Hooking Primary Podiatric Medicine 06/21/18 Jan Mahmood MD [address] [place] [address] Gastroenterology 11/05/20 Brandt Quintana MD [address] [place] [address] Resident 11/05/20 Jan Mahmood MD [address] [place] [address]285 Assigned Gastroenterology Provider 12/01/20 Rio Jaquez MD [address] [place] [address] Assigned PCP 11/17/20 09/30/24 Dom Eason MD 7 [facility] 353 [place] [address] Internal Medicine 12/02/20 Jaimie Vernon, RN Specialty Armored Vehicle Officer Cardiology 10/28/21 Marquise Hanley MD [address] [place] [address]293 Endocrinology, Diabetes, and Metabolism 03/05/22 Vlad Ramey MD [address] [place] [address]50 Cardiovascular Disease 05/07/22 Joesph Crowe MD [address] [place] [address]77 Surgery 05/07/22 Michelle Padilla RN Specialty Armored Vehicle Officer Cardiology 07/03/22 Marquise Hanley MD [address] [place] [address] Assigned Endocrinology Provider 08/15/22 Wagner Oliver MD [address] [place] [address] Critical Care 12/15/22 Laura Epperson, [employer]ODU[employer] PUMP OPERATOR 7 [facility] [address] [place] [address] Assigned Nephrology Provider 02/20/23 08/30/24 Joesph Crowe MD [address] [place] [address]63 Surgery 03/17/23 Joesph Crowe MD [address] [place] [address] 27464 Assigned Surgical Provider 04/03/23 09/30/24 Adonay Haq MD [address] [place] [address] Internal Medicine 06/14/23OctoberDenilson MD 6405 [facility] Black [facility] [address] [place] [address] Assigned Heart and Vascular Provider 05/29/23 11/28/24 Jason Alvares MD [address] [place] [address] 352025 Assigned Neuroscience Provider 05/15/23 11/28/24 Ruth Riddle, DPM, Podiatry/Foot and Ankle Surgery [address] [place], [place] 942097 Assigned Musculoskeletal Provider 10/22/23 Jignesh Mathias MD [address] [place] [address]162 Gastroenterology 09/25/24 Adonay Haq MD [address] [place] [address] 8[address]27 Assigned PCP 10/01/24 12/28/24 Omar Carmona MD [address] [place] [address] 558345 Assigned PCP 12/29/24 Jason Alvares MD [address] [place] [address] Assigned Neuroscience Provider 12/29/24 Jignesh Mathias MD [address] [place] [address] [phone] Assigned Surgical Provider 12/29/24 Ayad Lopez, PhD LP [address] [place] [address] [phone] Assigned Behavioral Health Provider 02/28/25 Gavi Nieto PANavinC [address] [place] [address] [phone] Physician Ore Roaster Dermatology 03/19/25 documented as of this encounter
--- OUTSIDE RECORDS SUMMARY | 2025-03-24 20:25 | XMS_ITS | Encounter Summary ---
Author Organization [facility] Address [address] [place] [address] Care Team Providers Care Recycling Worker Name Role Phone Rio Jaquez MD Primary Care Provider Barry Kilpatrick MD Unavailable Michelle Henderson I RN Unavailable [phone] Rio Jaquez MD Unavailable [phone] Jemima Jaramillo MD Unavailable Unavai Kelley Bautista RN Unavailable [phone] Sydnee Saleem MD Unavailable [phone] Karlene Moya MD Unavailable [phone] Wilbert Quintero OD Unavailable [phone] Rod Gauthier DPM Unavailable [phone] Jan Mahmood MD Unavailable [phone] Brandt Quintana MD Unavailable Jan Mahmood MD Unavailable [phone] Rio Jaquez MD Unavailable +[phone] Dom Eason MD Unavailable + [phone] Addison, Jaimie RN Unavailable Unavailable Marquise Hanley MD Unavailable +[phone] Vlad Ramey MD Unavailable +[phone] Joesph Crowe MD Unavailable + [phone] Michelle Padilla RN Unavailable Unavaila ble Marquise Hanley MD Unavailable +[phone] Wagner Oliver MD Unavailable +[phone] Laura Epperson NP Unavailable +[phone] Joesph Crowe MD Unavailable [phone] Joesph Crowe MD Unavailable + [phone] Adonay Haq MD Unavailable [phone] Denilson Srinivasan MD Unavailable + [phone] Jason Alvares MD Unavailable Ruth RiddleM, Podiatry /Foot and Ankle Surgery Unavailable Omar Carmona MD Primary Care Provider [phone] Jignesh Mathias MD Unavailable Adonay Haq MD Unavailable [phone] Omar Carmona MD Unavailable [phone] Jason Alvares MD Unavailable Jignesh Mathias MD Unavailable Ayad Lopez PhD LP Unavailable [phone] Gavi Nieto PA-C Unavailable [phone] Encounter Details Date Type Department Care Team (Late st Contact Info) Description 06/13/2024 [facility] [address] 4th [place] [address] Rio Jaquez MD [address] [place] [address] 4 [place] [address] Social History Tobacco Use Types Packs/Day Years [...] than three times a week 08/27/2021 Attends Spiritism Services Not on file 08/27 Do you belong to any clubs o r organizations such as voodoo groups, unions, fraternal or athletic groups, or [...] Score 2 02/28/2024 [facility] - Occupational Stress Questionnaire [...] Sex Assigned at Female 09/12/2020 12:05 PM HONEY PROCESSOR Legal Sex Female 3:26 AM HONEY PROCESSOR Gender Identity Female 09/12/2020 12:05 PM HONEY PROCESSOR Sexual Orientation Straight 12/19/2021 10 :44 AM [...] Description 03/26/2025 11:00 AM CDT Therapy Visit [address] [phone] Jason Alvares MD [address] [place] [address] Chaya Castillo OTR [facility] [address] [facility] [place] [address] 03/29/2025 10:30 AM CDT Therapy Visit [facility] [address] [place] [phone] [place] [address] [place], [place] [address] 04/02/2025 11:00 AM CDT Therapy Visit [address] [phone] Jason Alvares MD [address] [place] [address] Chaya Castillo [facility] [address] [place] [address] 04/11/2025 12:30 PM CDT Office Visit [facility] [address] 4th [place] [phone] Omar Carmona MD [address] [place] [address] 04/12/2025 2:15 PM CD[facility] [address] [place] [phone] Jason Alvares MD [address] [place] [address] Chaya Castillo OTR [facility] [address] [facility] [place] [address] 04/16/2025 11:00 AM CDT Therapy Visit [facility] [address] [place] [address] Jason Alvares MD [address] [address] Chaya Castillo OTR [facility] [address] [place] [address] 04/23/2025 11:00 AM CDT Therapy Visit [facility] [place] [address] [place] [address] Jason Alvares MD [address] [place] [address] Chaya Castillo OTR [facility] [address] [place] [address] 04/30/2025 11:00 AM CDT [facility] [address] [place] [address] Jason Alvares MD [address] [place] [address] Chaya Castillo OTR [facility] [address] [place] [address] 05/15/2025 12:30 PM CDT Office Visit [address] [phone] Marquise Hnaley MD [address] [place] [address] 06/08/2025 9:15 AM CDT Office Visit [facility] [address] [phone] Jignesh Mathias MD [address] [place] [address] 11/05/2025 1:45 PM CDT Office Visit [facility] [address] [place] [address] Gavi Nieto PA-C Dermatology [address] [place] [address] [phone] documented as of this encounter Goals Goal [...] documented as of this encounter Care Teams Recycling Worker Relationship Specialty Start Date End Date Rio Jaquez MD [address] [place] [address] [place] [address] [place] [address] PCP - General Family Practice 12/02/10 07/13/24 Omar Carmona MD [address] [place] [address] PCP - General Family Medicine 07/14/24 Barry Kilpatrick MD [address] [place] [address] [id number] [place] [address] Neurology 07/19/14 Michelle Henderson I, RN Nurse Coordinator Neurology 07/19/14 Rio Jaquez MD [address] [place] [address] 4 [place], [place] [phone] Family Practice 10/15/14 Jemima Jaramillo MD 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 11/20/14 Kelley Chin, [facility] [address] [place] [address] [phone] Nurse Coordinator Cardiology 11/04/15 Sydnee Saleem MD [address] [place] [address] 508 [place], [place] [phone] Cardiology 11/04/15 Karlene Moya MD [address] [place] [address] [phone] Ophthalmology 06/24/17 Wilbert Quintero, OD [address] [place] [address] [phone] Optometry 06/24/17 Rod Gauthier DPM [address] [place] [address] [phone] Laboratory Manager Primary Podiatric Medicine 06/21/18 Jan Mahmood MD [address] [place] [address] [phone] Gastroenterology 11/05/20 Brandt Quintana MD [address] [place] [address] Resident 11/05/20 Jan Mahmood MD [address] [facility] [address] [place] [address] Assigned Gastroenterology Provider 12/01/20 Rio Jaquez MD [address] [place] [address] 4 [place] [address] Assigned PCP 11/17/20 09/30/24 Dom Eason MD 7 [facility] [address] [place] [address] Internal Medicine 12/02/20 Jaimie Vernon, TANIA [employer] Anchor Cardiology 10/28/21 Marquise Hanley MD [address] [place] [address] Endocrinology, Diabetes, and Metabolism 03/05/22 Vlad Ramey MD [address] [place] [address] Cardiovascular Disease 05/07/22 Joesph Crowe MD [address] [place] [address] Surgery 05/07/22 Michelle Padilla RN Specialty Television Anchor Cardiology 07/03/22 Marquise Hanley MD [address] [place] [address] Assigned Endocrinology Provider 08/15/22 Wagner Oliver MD [address] [place] [address] Critical Care 12/15/22 Laura Epperson NP 717 [facility] [address] [place] [address] Assigned Nephrology Provider 02/20/23 08/30/24 Joesph Crowe MD [address] [place] [address] [phone] Surgery 03/17/23 Joesph Crowe MD [address] [place] [address] Assigned Surgical Provider 04/03/23 09/30/24 Adonay Haq MD [address] [place], [place] 162545 Internal Medicine 06/14/23OctoberDenilson MD [address] [facility] [address] [place] [address] Assigned Heart and Vascular Provider 05/29/23 11/28/24 Jason Alvares MD 420 [facility] 295 [place], [place] 568745 Assigned Neuroscience Provider 05/15/23 11/28/24 Ruth Riddle DPM, Podiatry/Foot and Ankle Surgery [address] [place] [address] Assigned Musculoskeletal Provider 10/22/23 Jignesh Mathias MD [address] [place] [address] Gastroenterology 09/25/24 Adonay Haq MD [address] [place] [address] [phone] Assigned PCP 10/01/24 12/28/24 Omar Carmona MD [address] [place] [address] 204455 Assigned PCP 12/29/24 Jason Alvares MD [address] [place] [address] [phone] Assigned Neuroscience Provider 12/29/24 Jignesh Mathias MD [address] [place] [address]1997 Assigned Surgical Provider 12/29/24 Ayad Lopez, PhD LP [address] [place] [address] [phone] Assigned Behavioral Health Provider 02/28/25 Gavi Nieto PA-C [address] [place] [address] [phone] Physician School Office Assistant Dermatology 03/19/25 documented as of this encounter
--- OUTSIDE RECORDS SUMMARY | 2025-03-24 20:25 | XMS_ITS | Clinical Summary ---
Author Organization [facility] Address [address] [place] [address] Care Team Providers Care Director Of Distance Learning Name Role Phone Barry Kilpatrick MD Unavailable Michelle Henderson RN Unavailable [phone] Rio Jaquez MD Unavailable [phone] Jemima Jaramillo MD Unavailable Unavai Kelley Bautista RN Unavailable [phone] Sydnee Saleem MD Unavailable [phone] Karlene Moya MD Unavailable [phone] Wilbert Quintero OD Unavailable [phone] Rod Gauthier DPM Unavailable [phone] Jan Mahmood MD Unavailable [phone] Brandt Quintana MD Unavailable [phone] Jan Mahmood MD Unavailable [phone] Dom Eason MD Unavailable [phone] Jaimie Vernon RN Unavailable Unavailable Marquise Hanley MD Unavailable [phone] Vlad Ramey MD Unavailable [phone] Joesph Crowe MD Unavailable [phone] Michelle Padilla RN Unavailable Unavaila ble Marquise Hanley MD Unavailable [phone] Wagner Oliver MD Unavailable [phone] Joesph Crowe MD Unavailable Adonay Haq MD Unavailable [phone] Ruth RiddleM, Podiatry /Foot and Ankle Surgery Unavailable Omar Carmona MD Primary Care Provider [phone] Jignesh Mathias MD Unavailable Omar Carmona MD Unavailable [phone] Jason Alvares MD Unavailable Jignesh Mathias MD Unavailable Ayad Lopez PhD LP Unavailable [phone] Gavi Nieto-Keisha Unavailable [phone] Allergies Active Allergy Reactions Criticality Noted Date Comments Atorvastatin Other (See Comments) Medium 09/12/2021 Elevated liver function myalgia fatigue Cephalexin Anaphylaxis,Hives High 11/29/2006 Other reaction(s): Throat Swelling/Closing, Wheezing Codeine Duloxetine Anaphylaxis High 08/10/2011 Other reaction(s): *Unknown Liver cannot tolerate this medication Liver cannot tolerate this medication Gabapentin 04/17/2010 Latex Rash Low 03/06/2016 Pertussis Vaccine Anaphylaxis High 07/19/2012 allergie occurred when she was 4, states tetanus is fine just not Pertussis/whooping cough Statins High 02/05/2022 Sulfa Antibiotics Hives,GI Disturbance,Shortness Of Breath,Anaphylaxis High 11/29/2006 Other reaction(s): Urinary Retention Other reaction(s): Other - Describe In Comment Field Medications hydrOXYzine (ATARAX) 25 MG tablet Take 25-50 mg by mouth every 8 hours as needed Active medical cannabis (Patient's own supply) See Admin Instructions (The purpose of this order is to document that the patient reports taking medical cannabis. This is not a prescription, and is not used to certify that the patient has a qualifying medical condition.) Active evolocumab (REPATHA) 140 MG/ML prefilled autoinjectorIndica tions:HLD (hyperlipidemia) Inject 1 mL (140 mg) Subcutaneous every 14 days 6 mL 3 05/27/20 23 Active Psyllium (METAMUCIL PO) Take 1 Scoop by mouth every morning. Active folic acid (FOLVITE) 400 MCG tabletIndications: Folate deficiency Take 1 tablet (400 mcg) by mouth daily. 100 tablet 2 05/17/20 24 Active MAGNESIUM OXIDE 400 (240 Mg) MG tabletIndications: Severe protein-calorie malnutrition,Acute renal impairment,Acute on chronic diastolic heart failure (H) TAKE 1 TABLET(400 MG) BY MOUTH DAILY 90 tablet 3 06/14/20 24 Active midodrine (PROAMATINE) 10 MG tablet Take 10 mg by mouth. 06/28/20 24 025 Active omeprazole (PRILOSEC) [address] capsuleIndications :Anemia due to blood loss, acute Take 1 capsule (40 mg) by mouth every morning. 90 capsule 3 06/30/20 24 Active Thiamine Mononitrate (B1) 100 MG TABSIndications:Nu tritional deficiency Take 100 mg by mouth daily. 90 tablet 3 08/07/20 24 Active Vitamin D3 50 mcg (2000 units) tabletIndications: Vitamin D deficiency Take 1 tablet (50 mcg) by mouth daily. 90 tablet 3 08/07/20 24 Active melatonin 3 MG tabletIndications: Primary insomnia TAKE 1 TABLET(3 MG) BY MOUTH EVERY NIGHT NEEDED FOR SLEEP 100 tablet 3 08/10/19 25 Active levETIRAcetam (KEPPRA) 250 MG tabletIndications: Seizures, post-traumatic (H) Take 1 tablet (250 mg) by mouth 2 times daily. 180 tablet 3 12/05/19 25 Active levETIRAcetam (KEPPRA) 1000 MG tabletIndications: Seizures, post-traumatic (H) Take 1 tablet (1,000 mg) by mouth 2 times daily. 180 tablet 3 12/05/19 25 Active ferrous gluconate (FERGON) 324 (38 Fe) MG tabletIndications: Alcoholic cirrhosis of liver without ascites (H) Take 1 tablet (324 mg) by mouth daily (with breakfast). With a 500 mg vitamin C 30 tablet 2 12/06/19 25 Active pregabalin (LYRICA) 50 MG capsuleIndications :Fibromyalgia Take 1 capsule (50 mg) by mouth 2 times daily. 180 capsule 1 01/19/20 25 Active levothyroxine (SYNTHROID/LEVOTHR OID) 50 MCG tabletIndications: Acquired hypothyroidism TAKE 1 TABLET BY MOUTH DAILY ALONG WITH A 25MCG TABLET WEDNESDAY AND WEDNESDAY 90 tablet 3 02/13/20 25 Active rifaximin (XIFAXAN) 550 MG TABS tabletIndications: Hepatic encephalopathy (H) Take 1 tablet (550 mg) by mouth 2 times daily. 180 tablet 3 03/08/20 25 Active XIFAXAN 550 MG TABS tabletIndications: Hepatic encephalopathy (H) TAKE 1 TABLET(550 MG) BY MOUTH TWICE DAILY 180 tablet 3 03/20/20 24 025 Discontin ued(Reord er (No AVS)) Active Problems Problem Noted Date Diagnosed Date Mixed stress and urge urinary incontinence 02/16 Syncope and collapse 02/09/2024 Left inguinal hernia 07/14/2023 Nutritional deficiency 07/14/2023 Osteopetrosis 03/15/2023 Osteoporotic compression fra cture of spine, with routine healing, subsequent encounter 03/15/2023 Osteopenia of multiple sites 02/01/2023 Compression fracture of T12 vertebra, sequela Adrenal nodule 02/01/2023 Overview (02/01/2023): left Unilateral recurrent inguina l hernia without obstruction or gangrene 05/07/2022 Adenoma of left adrenal gland 03/05/2022 Pain in both feet 03/05/2022 CKD (chronic kidney disease) stage 2, GFR 60-89 ml/min 08/27/2021 Seizures, post-traumatic 01/11/2021 Ecchymosis 01/11/2021 Abdominal bloating 12/13/2020 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 12/13/2020 Overview (12/20/2020): Added automatically from request for surgery [id number] Metabolic encephalopathy 11/28/2020 Other cirrhosis of liver 11/28/2020 Acute on chronic diastolic heart failure 021 Primary insomnia 11/07/2020 Mixed anxiety and depressive disorder 11/07/2020 S/P tooth extraction 11/07/2020 Lipodystrophy, not elsewhere classified 03/04/20 20 Diffuse connective tissue disease 10/11/2018 Folate deficiency 10/11/2018 Vitamin B12 deficiency (non anemic) 10/11/2018 Mediastinal lymphadenopathy 07/21/2016 [facility] is followed by the [facility] 11/04/2015 Overview (04/02/2019): For urgent after hours needs, please call [phone] and ask to speak with the Adult Congenital Heart Disease Physician ironmolder - mention job code [id number]. Mild episode of recurrent major depressive disor quentin 09/16/2015 Other long term care administrator (current) drug therapy 6 Sensory ganglionopathy 02/26/2015 Thiamine deficiency neuropathy 06/26/2014 Bilateral myopia 06/25/2014 Presbyopia 06/25/2014 Tear film insufficiency 06/25/2014 Overview (05/10/2015): Problem list name updated by automated process. Provider to review Tobacco use 04/13/2014 Overview (08/04/2016): Overview: x 31 years. trying to quit. Hypothyroidism 06/06/2013 PFO (patent foramen ovale) 04/26/2012 Coccyx pain 01/12/2012 Vitamin D deficiency 01/12/2012 Overview (05/09/2012): (Problem list name updated by automated process. Provider to review and confirm.) Fibroid 01/12/2012 Obstructive sleep apnea syndrome 05/13/2011 Overview (08/04/2016): Overview: Does not use CPAP but is on oxygen at night Peripheral nerve disease 05/13/2011 Nicotine dependence 04/09/2011 Ataxia 04/09/2011 Fibromyalgia 04/09/2011 Neuropathy, peripheral 04/09/2011 Malnutrition 04/09/2011 Generalized anxiety disorder 04/09/2011 Dysthymic disorder 04/09/2011 Essential hypertension, benign 04/09/2011 Alcohol abuse 02/20/2010 Assessment & Plan (03/05/2022 9:30 AM CDT): Currently abstinent Hypertension 01/20/2010 Steatosis of liver 09/11/2009 Overview (08/04/2016): Overview: Noted on Abdominal CT 08/18 Uterine leiomyoma 09/11/2009 Overview (08/04/2016): Overview: ON 08/18 Ct scan Cyst of ovary 08/29/2009 Occipital headache 07/03/2009 Disturbance in sleep behavior 07/10/2008 Gastroesophageal reflux disease 11/29/2007 Migraine without status migrainosus, not intract able 11/29/2007 Right ventricular enlargement Secundum ASD Resolved Problems Problem Noted Date Diagnosed Date Resolved Date Stage 3a chronic kidney disease 07/08/2021 08/27/2021 Subdural hemorrhage 01/11/2021 12/06/19 24 Fall, initial encounter 01/11/202108/09 Alcoholic cirrhosis, unspeci fied whether ascites present 01/11/2021 12/06/2023 Alcoholic cirrhosis of liver with ascites 01/09/2021 12/06/2023 Acute renal failure (ARF) 01/02/2021 Tachycardia 12/13/2020 12/06/2023 Anemia due to blood loss, acute 11/28/2020 08/27/2021 CKD (chronic kidney disease) stage 4, GFR 15-29 ml/min 11/28/2020 01/30/2021 Acute tubular necrosis 11/12/202011/12 Edema due to malnutrition, d ue to unspecified malnutrition type 11/07/2020 12/06/2023 Acute renal impairment 11/07/202004/22 Edentulous 11/07/2020 12/06/2023 Multiple joint pain 07/02/2020 12/06/19 24 Generalized muscle weakness 07/02/2020 12/06/2023 Tinea corporis 11/28/2019 12/06/2023 Hemorrhage into subarachnoid space of neuraxis 03/06/2016 12/06/2023 Sarcoidosis 02/26/2015 08/27/2021 Menorrhagia 07/03/2014 12/06/2023 Dental decay 04/26/2012 03/05/2022 Polycythemia 01/12/2012 04/22/2021 Hyperlipidemia with target LDL less than 160 2 03/04/2020 Overview (06/10/2015): Diagnosis updated by automated process. Provider to review and confirm. 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 Provider to review Obesity 04/09/2011 12/06/2023 Overview (05/10/2015): Problem list name updated by automated process. Provider to review High thyroid stimulating hormone (TSH) level 0 03/04/2020 Partial anomalous pulmonary venous return 03/05/2022 Overview (07/19/2014): right upper and right middle into the SVC Encounters Date Type Department Care Team Description 03/18/2025 Travel 03/12/2025 11:00 AM CDT Therapy Visit [address] [phone] Jason Alvares MD Peterson, Megan A, OTR Seizures, post-traumatic (H) (Primary Dx) 03/12/2025 Travel 03/08/2025 Orders Only [facility] Hepatology [facility] [address] [phone] Jayla Plaza, RN Hepatic encephalopathy (H) 03/05/2025 11:00 AM CDT Therapy Visit [address] [place] [address] Jason Alvares MD Peterson, Megan A, OTR Seizures, post-traumatic (H) (Primary Dx) 03/05/2025 Travel 02/26/2025 11:00 AM CDT Therapy Visit [facility] [address] [place] [phone] Jason Alvares MD Peterson, Megan A, OTR Seizures, post-traumatic (H) (Primary Dx) 02/26/2025 Travel 02/21/2025 Travel 02/20/2025 12:30 PM CDT Office Visit [facility] Epile[facility] [address] [place] [address], [address] [place] [phone] Jason Alvares MD Waldron, Eric John, PhD LP Injury of head, sequela (Primary Dx); Cognitive and behavioral changes; Seizure (H); 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); Generalized anxiety disorder; Other specified mental disorders due to known physiological condition 02/20/2025 Abstract [facility] [place] [address] [place] [address] 3rd [place] [phone] Ayad Lopez, PhD LP 02/20/2025 Travel 02/16/2025 11:30 AM CDT Virtual Visit [facility] [address] [facility] [address] [place] [phone] Roxana Montoya, PT Mixed stress and urge urinary incontinence (Primary Dx) 02/16/2025 Travel 02/16/2025 MyC Medical Advice [facility] [address] [place] [phone] Roxana Montoya, PT 02/12/2025 Refill [facility] [place] [address] [facility] 4th [place] [phone] Omar Carmona MD Refill Request (levothyroxine (SYNTHROID/LEVOTHROID ) 50 MCG tablet) 02/07/2025 9:15 AM CDT Therapy Visit [facility] [address] [place] [address] Jason Alvares MD Raasch, Sharon, GIANCARLO Metabolic encephalopathy 02/07/2025 Travel 02/02/2025 3:00 PM CDT Therapy Visit [address] [phone] Jason Alvares MD Peterson, Megan A, OTR Seizures, post-traumatic (H) (Primary Dx) 02/02/2025 Travel 02/01/2025 Travel 01/25/2025 Travel 01/19/2025 MyC Medical Advice [facility] Epilepsy [facility] [address] [facility], [address] [place] [address] Jason Alvares MD 01/18/2025 MyC Refill [facility] Primary Care [address] [phone] Omar Carmona MD Refill Request 01/16/2025 11:00 AM CDT Therapy Visit [address] [address] Jason Alvares MD Strandell, Kathryn L, OT Mixed stress and urge urinary incontinence (Primary Dx); Seizures, post-traumatic (H); Metabolic encephalopathy 01/16/2025 Travel 01/15/2025 Travel 01/10/2025 2:30 PM CDT Office Visit [facility] Primary Care [address] [address] Omar Carmona MD Transient confusion (Primary Dx); History of stroke; Acquired hypothyroidism 01/10/2025 Travel 01/08/2025 Travel 01/03/2025 MyC Medical Advice [facility] Primary Care [address] [phone] Omar Carmona MD Hypokalemia (Primary Dx); CKD (chronic kidney disease) stage 2, GFR 60-89 ml/min; Anemia 12/22/2024 MyC Medical Advice Vik LE[facility] [address], [address] [place] [address] Jason Alvares MD from Last 3 Months Immunizations Immunization Administration Dates Next Due COVID-19 Bivalent 12+ (Pfizer) 05/24/2022 COVID-19 MONOVALENT 12+ (Pfizer) 08/19/2021 COVID-19 Monovalent 12+ (Pfizer 2021) 05/24/2022 ,12/24/2021,08/19/2021 COVID-19 Vaccine (Mela) 02/14/2021 Flu, Unspecified 08/29/2024,05/24/2022 Hepatitis A/B (Twinrix) 10/21/2022,10/22/2021, INFLUENZA,TRIVALENT (FLUCELVAX) 08/28/2024 Influenza (IIV3) PF 05/18/2021, 6,06/18/2014,2012,06/13/2012,05/28/2011,07/07/2010 Influenza (prior to 2023) 06/14/2017 Influenza Vaccine 18-64 (Flublok) 10/04/2020 Influenza Vaccine >6 months,quad, PF ,05/24/2020,06/22/2019,2018,06/09/2017 Influenza Vaccine, 6+MO IM (QUADRIVALENT W/PRESERVATIVES) 06/22/2019 Influenza,INJ,MDCK,PF,Quad >6mo(Flucelvax) 05/24/2022,06/22/2019 Mantoux Tuberculin Skin Test 02/23/2011 Pneumococcal 20 valent Conju gate (Prevnar 20) 02/16/2022 Pneumococcal 23 valent 05/28/2011 TD,PF 7+ (Tenivac) 02/22/2020,01/16/2010 Family History * Patient is adopted Medical History Relation Comments Anxiety Disorder Son Attention Deficit Disorder Son Depression Son Mental Illness Son Substance Abuse Son Marijuana addera ll use Unknown/Adopted No family hx of Relation Status Comments Father Other Maternal Grandfather Other Maternal Grandmother Other Mother Other Other Adopted Paternal Grandfather Other Paternal Grandmother Other Son Alive Social History Tobacco Use Types Packs/Day Years Used Date Smoking Tobacco: Every Day Cigarettes 0.5 42.6 Started: 08/09/1982 Other Smokeless Tobacco: Never Tobacco Cessation:Ready to Q uit: Not Asked; Counseling Given: Not Answered Comments:1/2 PPD Alcohol Use Standard Drinks/Week Comments [...] than three times a week 08/27/2021 Attends [employer] Services Not on file 08/27 Do you belong to any clubs o r organizations such as baptist groups, unions, fraternal or athletic groups, or [...] Answer Date Recorded PHQ-2 Score 3 12/04/2024 [facility] [place] of Occupat ional Health - Occupational Stress [...] Sex Assigned at Female 09/12/2020 12:05 PM OVERLOCK SLEEVE SETTER Legal Sex Female 3:26 AM OVERLOCK SLEEVE SETTER Gender Identity Female 09/12/2020 12:05 PM OVERLOCK SLEEVE SETTER Sexual Orientation Straight 12/19/2021 10 :44 AM CDT Occupation Industry Job Start Date Job End Date on disability for FMS Not on file Not on file Not on file disabled Not on file Not on file Not on file Last Filed Vital Signs Vital Sign Reading Time Taken Comments Blood Pressure 120/76 01/10/2025 1:52 PM CDT Pulse 85 01/10/2025 1:52 PM CDT Temperature 36.8 C (98.2 F) 01/10/2025 1:52 PM CDT Respiratory Rate 14 01/10/2025 1:52 PM CDT Oxygen Saturation 97% 01/10/2025 1:52 PM CDT Inhaled Oxygen Concentration - - Weight 53.9 kg (118 lb 14.4 oz) 01/10/2025 1:52 PM CDT Height 165.1 cm (5' 5) 01/10/2025 1:52 PM CDT Body Mass Index 19.79 01/10/2025 1:52 PM CDT Plan of Treatment Upcoming Encounters Date Type Department Care Team (Late st Contact Info) Description 03/26/2025 11:00 AM CDT Therapy Visit [facility] [address] [place] [phone] Jason Alvares MD [address] [place] [phone] Chaya Castillo OTR [facility] [address] [address] 03/29/2025 10:30 AM CDT Therapy Visit [facility] Specialty [place] [address] [facility] [address] [place] [phone] [place] [address] [place] [address] 04/02/2025 11:00 AM CDT Therapy [facility] [address] [place] [phone] Jason Alvares MD [address] [place] [phone] Chaya Castillo OTR [facility] [address] [place] [address] 04/11/2025 12:30 PM CDT Office Visit [facility] Primary Care Clinic [address] 4th [place] [phone] Omar Carmona MD [address] [place] [address] 04/12/2025 2:15 PM CDT Therapy Visit [facility] [address] [facility] [phone] Jason Alvares MD [address] [place] [address] Chaya Castillo, OTR [facility] [address] [facility] [address] 04/16/2025 11:00 AM CDT Therapy Visit [facility] [address] [facility] [address] Jason Alvares MD [address] [place] [address] Chaya Castillo, OTR [facility] [address] [facility] [place] [address] 04/23/2025 11:00 AM CDT Therapy Visit [facility] [address] [facility] [phone] Jason Alvares MD [address] [place] [address] Chaya Castillo, OTR [facility] [address] [facility] [address] 04/30/2025 11:00 AM CDT Therapy Visit [facility] [address] [place] [phone] Jason Alvares MD [address] [facility] [address] [place], [place] [address] Chaya Castillo, OTR [facility] [address] [place] [address] 05/15/2025 12:30 PM CDT Office Visit [address] [phone] Marquise Hanley MD [address] [place] [phone] 06/08/2025 9:15 AM CDT Office Visit [facility] Hepatology Clinic [address] [phone] Jignesh Mathias MD [address] [place] [address] 11/05/2025 1:45 PM CDT Office Visit [facility] Dermatology Clinic [address] 3rd [place] [phone] Gavi Nieto PA-C Dermatology [address] [place] [address] Health Maintenance Due Date Last Done Comments CT COLONOGRAPHY 1969 FIT 1969 sDNA (Cologuard) 1969 ZOSTER VACCINE (1 of 2) 2019 COVID-19 VACCINE ( season) 2024 06/27/2023, 05/24/2022, 05/24/2022, Additional history exists ANNUAL REVIEW OF HM ORDERS 07/14/2024 07/14/2023 MICROALBUMIN 07/14/2024 07/14/2023, 02/06, 01/15/2022, Additional history exists LUNG CANCER SCREENING 10/12/2024 10/13/2023 , 03/17/2023, 02/23/2022, Additional history exists LIPID 02/27/2025 02/28/2024, 08/0 02/2023, 02/15/2023, Additional history exists NICOTINE/TOBACCO CESSATION COUNSELING Q 1 YR 02/27/2025 02/28/2024, 03/15/2023, 10/21/2022, Additional history exists INFLUENZA VACCINE (#1) 2025 , 08/28/2024, 06/27/2023, Additional history exists PHQ-9 06/05/2025 12/04/2024, 12/0 01/2024, 06/19/2024, Additional history exists BMP 06/06/2025 12/05/2024, 02/07, 02/09/2024, Additional history exists FLEX SIG 10/25/2025 10/25/2020 MAMMO SCREENING 11/20/2025 11/20/2024, 11/07, 09/10/2023, Additional history exists MEDICARE ANNUAL WELLNESS VISIT 11/24/2025 11/24/2024, 03/15/2023, 03/14/2018, Additional history exists ALT 12/05/2025 12/05/2024, 02/07, 02/09/2024, Additional history exists CBC 12/05/2025 12/05/2024, 02/07, 02/09/2024, Additional history exists ADVANCE CARE PLANNING 12/24/2026 12/24/2021 , 08/27/2021, 09/16/2020 HF ACTION PLAN 06/30/2027 06/30/2024 (Not Needed) DIABETES SCREENING 12/06/2027 12/05/2024, 0 02/28/2024, 02/09/2024, Additional history exists HPV TEST 03/15/2028 03/15/2023, 03/14/2018 PAP 03/15/2028 03/15/2023, 08/0 01/2018, 05/29/2013 COLONOSCOPY 03/02/2029 03/02/2019, 03/02/2019 COLORECTAL CANCER SCREENING 03/02/2029 DTAP/TDAP/TD VACCINE (1 - Tdap) 02/21/2030 02/22/2020, 01/16/2010 Postponed from 02/23/2020 (Other) HIV SCREENING Completed 05/19/2010 DEPRESSION ACTION PLAN Completed 10/10/2018 URINE DRUG SCREEN Discontinued 10/10/2018 (No t Needed), 05/30/2010 HEPATITIS C SCREENING Completed 11/20/2020 , 11/20/2020, 05/22/2010, Additional history exists PNEUMOCOCCAL VACCINE 50+ YEARS Completed 02/16/2022, 05/28/2011 HEPATITIS A VACCINE Completed 10/21/2022, 10/22/2021, 08/27/2021 HEPATITIS B VACCINE Completed 10/21/2022, 10/22/2021, 08/27/2021 URINALYSIS Completed 02/15/2023, 07/09, 01/12/2021, Additional history exists TSH W/FREE T4 REFLEX Completed 02/09/2024, 07/14/2023, 12/07/2022, Additional history exists HPV VACCINE (No Doses Required) Completed MENINGITIS VACCINE Aged Out No longer eligible based on patient's age to complete this topic Goals Goal Patient Goal Type Associated Problems Recent Progress Patient-Stated? Author Quit smoking / using tobacco Lifestyle Rio Will MD Note: 06/25/14 planned quit date Medical Devices Implanted Type Area Mandarin Chinese Teacher Device Identifier Shelf Expiration Date Model / Serial / Lot Device Essure [id number] Implanted:Qty: 1 on 12/05/2014 by Jemima Jaramillo MD at [facility] Right: Fallopian Tube [employer] 12/01/2016 [id number] / [id number] Procedures Procedure Name Priority Date/Time Associated Diagnosis Comments [place] PSYCL/NRPSYCL TST TECH 2+ TST EA ADDL 30 MIN Routine 02/25/2025 9:55 PM CDT Cognitive and behavioral changes Injury of head, sequela Seizure (H) 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) Generalized anxiety disorder Other specified mental disorders due to known physiological condition IL PSYCL/NRPSYCL TST TECH 2+ TST 1ST 30 MIN Routine 02/25/2025 9:55 PM CDT Cognitive and behavioral changes Injury of head, sequela Seizure (H) 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) Generalized anxiety disorder Other specified mental disorders due to known physiological condition IL NEUROPSYCHOLOGICAL TST EVAL PHYS/QHP 1ST HOUR Routine 02/25/2025 9:55 PM CDT Cognitive and behavioral changes Injury of head, sequela Seizure (H) 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) Generalized anxiety disorder Other specified mental disorders due to known physiological condition CBC WITH PLATELETS Routine 12/05/2024 8: 59 AM CDT Alcoholic cirrhosis of liver without ascites (H) BASIC METABOLIC PANEL Routine 12/05/2024 8:59 AM CDT Alcoholic cirrhosis of liver without ascites (H) HEPATIC FUNCTION PANEL Routine 8:59 AM CDT Alcoholic cirrhosis of liver without ascites (H) LIPID REFLEX TO DIRECT LDL PANEL Routine 02/28/2024 10:29 AM CDT Hyperlipidemia LDL goal <100 TSH WITH FREE T4 REFLEX Add-On 02/09/20 24 3:42 AM CDT MAMMOGRAM - HIM SCAN Routine 09/10/2023 ALBUMIN RANDOM URINE QUANTITATIVE Routine 07/14/2023 10:09 AM OVERLOCK SLEEVE SETTER Essential hypertension, benign CT CHEST ABDOMEN PELVIS W/O CONTRAST Routine 03/17/2023 3:25 PM CDT Partial congenital anomalous pulmonary venous connection Adrenal nodule Tobacco use disorder GYNECOLOGIC CYTOLOGY Routine 03/15/2023 10:12 AM CDT Cervical cancer screening HPV HIGH RISK TYPES DNA CERVICAL Routine 03/15/2023 10:12 AM CDT Cervical cancer screening ROUTINE UA WITH MICROSCOPIC Routine 02/15/2023 12:21 PM CDT Chronic kidney disease, stage 3a (H) PHQ-9 DEPRESSION SCREENING ORDER Routine 06/16/2021 HEPATITIS C ANTIBODY Routine 11/20/2020 9:24 AM CDT COLONOSCOPY Routine 03/02/2019 7:16 AM CDT DRUG ABUSE SCREEN 8 URINE (UR) Routine 05/30/2010 2:50 AM CDT HIV 1 AND 2 ANTIBODY (QUEST) Routine 05/19/2010 2:24 PM CDT from Last 3 Months or Most Recently Relevant to Health Maintenance Results * (ABNORMAL) Hepatic function panel (12/05/2024 8:59 AM CDT) Pathologist [facility] Protein Total 6.4 6.4 - 8.3 g/dL 12/05/2024 9:33 AM CDT [facility] Albumin 3.5 3.5 - 5.2 g/dL 12/05/2024 9:33 AM CDT [facility] Bilirubin Total 0.9 <=1.2 mg/dL 12/05/2024 9:33 AM CDT [facility] Alkaline Phosphatase 53 40 - 150 U/L 12/05/2024 9:33 AM CDT [facility] AST 37 0 - 45 U/L 12/05/2024 9:33 AM CDT [facility] ALT 16 0 - 50 U/L 12/05/2024 9:33 AM CDT [facility] Bilirubin Direct 0.52(H) 0.00 - 0.30 mg/dL 12/05/2024 9:33 AM CDT [facility] Blood STRUCTURE OF RIGHT UPPER LIMB / Unknown Venipuncture / Unknown 12/05/2024 8:59 AM CDT 12/05/2024 8:59 AM CDT us Jignesh Mathias MD LAB - BLOOD ORDERABLES Final Res ult [facility] [place] [address] [facility] 1st [place] [address] * (ABNORMAL) Basic metabolic panel (12/05/2024 8:59 AM CDT) Sodium 143 135 - 145 mmol/L 12/05/2024 9:33 AM CDT [facility] Potassium 3.7 3.4 - 5.3 mmol/L 12/05/2024 9:33 AM CDT [facility] Chloride 113(H) 98 - 107 mmol/L 12/05/2024 9:33 AM CDT [facility] Carbon Dioxide (CO2) 25 22 - 29 mmol/L 12/05/2024 9:33 AM CDT [facility] Anion Gap 5(L) 7 - 15 mmol/L 12/05/2024 9:33 AM CDT [facility] Urea Nitrogen 13.2 6.0 - 20.0 mg/dL 12/05/2024 9:33 AM CDT [facility] Creatinine 0.77 0.51 - 0.95 mg/dL 12/05/2024 9:33 AM CDT [facility] GFR Estimate >90 >60 mL/min/1.7 3m2 12/05/2024 9:33 AM CDT [facility] Comment:eGFR calculated us2020 CKD-EPI equation. Calcium 8.4(L) 8.8 - 10.4 mg/dL 12/05/2024 9:33 AM CDT [facility] Glucose 121(H) 70 - 99 mg/dL 12/05/2024 9:33 AM CDT [facility] Blood STRUCTURE OF RIGHT UPPER LIMB / Unknown Venipuncture / Unknown 12/05/2024 8:59 AM CDT 12/05/2024 8:59 AM CDT us Jignesh Mathias MD LAB - BLOOD ORDERABLES Final Res ult [facility] [address] [facility] 1st [place] [address] * (ABNORMAL) CBC with platelets (12/05/2024 8:59 AM CDT) WBC Count 4.3 4.0 - 11.0 10e3/uL 12/05/2024 9:10 AM CDT [facility] RBC Count 4.52 3.80 - 5.20 10e6/uL 12/05/2024 9:10 AM CDT [facility] Hemoglobin 10.7(L) 11.7 - 15.7 g/dL 12/05/2024 9:10 AM CDT [facility] Hematocrit 34.3(L) 35.0 - 47.0 % 12/05/2024 9:10 AM CDT [facility] MCV 76(L) 78 - 100 fL 12/05/2024 9:10 AM CDT [facility] MCH 23.7(L) 26.5 - 33.0 pg 12/05/2024 9:10 AM CDT [facility] MCHC 31.2(L) 31.5 - 36.5 g/dL 12/05/2024 9:10 AM CDT [facility] RDW 18.1(H) 10.0 - 15.0 % 12/05/2024 9:10 AM CDT [facility] Platelet Count 95(L) 150 - 450 10e3/uL 12/05/2024 9:10 AM CDT [facility] Blood STRUCTURE OF RIGHT UPPER LIMB / Unknown Venipuncture / Unknown 12/05/2024 8:59 AM CDT 12/05/2024 8:59 AM CDT us Jignesh Mathias MD LAB - BLOOD ORDERABLES Final Res ult [facility] [address] [facility] 1st [place] [address] * Lipid panel reflex to direct LDL Non-fasting (02/28/2024 10:29 AM CDT) Cholesterol 109 <200 mg/dL 02/28/2024 11:00 AM CDT [facility] Triglycerides 56 <150 mg/dL 02/28/2024 11:00 AM CDT [facility] Direct Measure HDL 67 >=50 mg/dL 2023 11:00 AM CDT [facility] LDL Cholesterol Calculated 31 <=100 mg/dL 02/28/2024 11:00 AM CDT [facility] Non HDL Cholesterol 42 <130 mg/dL 02/28/2024 11:00 AM CDT [facility] Patient Fasting > 8hrs? No 02/28/2024 11:00 AM CDT [facility] Blood STRUCTURE OF LEFT UPPER LIMB / Unknown Venipuncture / Unknown 02/28/2024 10:29 AM CDT 02/28/2024 10:29 AM CDT Narrative [facility] - 02/28/2024 11:00 AM CDT Cholesterol Desirable: <200 mg/dL Triglycerides Normal: Less than 150 mg/dL Borderline High: 150-199 mg/dL High: 200-499 mg/dL Very High: Greater than or equal to 500 mg/dL Direct Measure HDL Female: Greater than or equal to 50 mg/dL Male: Greater than or equal to 40 mg/dL LDL Cholesterol Desirable: <100mg/dL Above Desirable: 100-129 mg/dL Borderline High: 130-159 mg/dL High: 160-189 mg/dL Very High: >= 190 mg/dL Non HDL Cholesterol Desirable: 130 mg/dL Above Desirable: 130-159 mg/dL Borderline High: 160-189 mg/dL High: 190-219 mg/dL Very High: Greater than or equal to 220 mg/dL us Rio Jaquez MD LAB - BLOOD ORDERABLES Fin al Result [facility] [address] 1st [place] [address] * TSH with free T4 reflex (02/09/2024 3:42 AM CDT) TSH 0.49 0.30 - 4.20 uIU/mL 02/09/2024 4:34 AM CDT [facility] Blood BLOOD SPECIMEN / Unknown Venipuncture / Unknown 02/09/2024 3:42 AM CDT 02/09/2024 3:49 AM CDT us Dil B Jones MD LAB - BLOOD ORDERABLES Final Res ult [facility] [place] [facility] [address], [address] [place] [address], [facility] * Mammogram - HIM Scan (09/10/2023) Anatomical Region Laterality Modality Other Narrative 09/10/2023 See encounter dated 02/27/24 us Patient Reported IMG MAMMOGRAPHY ORDERABLES Ashly l Result * Albumin Random Urine Quantitative with Creat Ratio (07/14/2023 10:09 AM OVERLOCK SLEEVE SETTER) Creatinine Urine mg/dL 10.0 mg/dL 07/14/2023 2:27 PM OVERLOCK SLEEVE SETTER [facility] Comment:The reference ranges have not been established in urine creatinine. The results should be integrated into the clinical context for interpretation. Albumin Urine mg/L <12.0 mg/L 2022 2:27 PM OVERLOCK SLEEVE SETTER [facility] Comment:The reference ranges have not been established in urine albumin. The results should be integrated into the clinical context for interpretation. Albumin Urine mg/g Cr 07/14/2023 2:27 PM OVERLOCK SLEEVE SETTER [facility] Comment: Unable to calculate, urine albumin and/or urine creatinine is outside detectable limits. Microalbuminuria is defined as an albumin:creatinine ratio of 17 to 299 for males and 25 to 299 for females. A ratio of albumin:creatinine of 300 or higher is indicative of overt proteinuria. Due to biologic variability, positive results should be confirmed by a second, first-morning random or 24-hour timed urine specimen. If there is discrepancy, a third specimen is recommended. When 2 out of 3 results are in the microalbuminuria range, this is evidence for incipient nephropathy and warrants increased efforts at glucose control, blood pressure control, and institution of therapy with an zmnpwpywwle-xyvxwsuori-pukmib (VALERIA) inhibitor (if the patient can tolerate it). Urine MID-STREAM URINE SPECIMEN / Unknown Non-blood Collection / Unknown 07/14/2023 10:09 AM OVERLOCK SLEEVE SETTER 07/14/2023 10:09 AM OVERLOCK SLEEVE SETTER Rio Jaquez MD LAB - URINE ORDERABLES Fin al Result [facility] [place] [facility] [address] [facility] [address], [address] [place] [address], [facility] [phone] * CT Chest Abdomen Pelvis w/o Contrast (03/17/2023 3:25 PM CDT) Anatomical Region Laterality Modality Abdomen/Pelvis, SUBRAD CT LARA DY, [facility] CT CHEST, [facility] CT ABDOMEN PELVIS, Chest, RAD CT Computed Tomography 03/17/2023 3:25 PM CDT Impressions 03/18/2023 8:15 AM CDT IMPRESSION: 1. Although the 1.9 cm left adrenal nodule is indeterminate on today's CT, it is unchanged in size and appearance compared to 2021, and is likely benign. 2. 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 3. Similar appearance of small mediastinal lymph nodes, in a patient with a history of sarcoidosis. Narrative 03/18/2023 8:15 AM CDT EXAM: CT CHEST ABDOMEN PELVIS W/O CONTRAST LOCATION: [facility] DATE: 03/17/2023 INDICATION: Partial congenital anomalous pulmonary venous connection, Adrenal nodule (H), Tobacco use disorder COMPARISON: Chest CT 02/23/2022. Abdominal ultrasound 12/07/2022 TECHNIQUE: CT scan of the chest, abdomen, and pelvis was performed without IV contrast. Multiplanar reformats were obtained. Dose reduction techniques were used. CONTRAST: None. FINDINGS: LUNGS AND PLEURA: No consolidation. No pleural effusions or pneumothorax. MEDIASTINUM/AXILLAE: Normal visualized thyroid gland. Small mediastinal lymph nodes, not enlarged by CT criteria. These are similar to prior. For reference, there is a low right paratracheal lymph node or group of lymph nodes measuring 1.4 x 0.8 cm series 3, image 133. No cardiomegaly. No pericardial effusion. Normal caliber thoracic aorta. Main pulmonary outflow tract measures 3.1 cm, compared to the ascending thoracic aorta 2.6 cm. This may represent pulmonary arterial hypertension. Again noted is partial anomalous pulmonary venous return, with the right upper and lower pulmonary veins draining into the SVC. See for example series 3, image 154. CORONARY ARTERY CALCIFICATION: None. HEPATOBILIARY: In the inferior right hepatic lobe is a 7 mm low-density lesion, too small to characterize further. This correlates with a cyst seen on prior ultrasound. PANCREAS: Normal. SPLEEN: Normal. ADRENAL GLANDS: Left adrenal gland nodule not well seen, measuring about 1.9 x 1.1 cm, previously 1.8 cm. This measures 18 Hounsfield units on today's unenhanced imaging. KIDNEYS/BLADDER: Normal. BOWEL: Stomach and small bowel unremarkable. No obstruction. Moderate amount of formed stool in the colon. LYMPH NODES: No bulky abdominopelvic lymphadenopathy. No ascites. No free air. Small fat-containing left inguinal hernia. VASCULATURE: No abdominal aortic aneurysm. PELVIC ORGANS: Bilateral Essure devices. MUSCULOSKELETAL: Negative. Procedure Note Av Lambert MD - 03/18/2023 EXAM: CT CHEST ABDOMEN PELVIS W/O CONTRAST LOCATION: [facility] DATE: 03/17/2023 INDICATION: Partial congenital anomalous pulmonary venous connection,Adrenal nodule (H), Tobacco use disorder COMPARISON: Chest CT 02/23/2022. Abdominal ultrasound 12/07/2022 TECHNIQUE: CT scan of the chest, abdomen, and pelvis was performed withoutIV contrast. Multiplanar reformats were obtained. Dose reductiontechniques were used. CONTRAST: None. FINDINGS: LUNGS AND PLEURA: No consolidation. No pleural effusions orpneumothorax. MEDIASTINUM/AXILLAE: Normal visualized thyroid gland. Small mediastinallymph nodes, not enlarged by CT criteria. These are similar to prior. Forreference, there is a low right paratracheal lymph node or group of lymphnodes measuring 1.4 x 0.8 cm series 3, image 133. No cardiomegaly. No pericardial effusion. Normalcaliber thoracic aorta. Main pulmonary outflow tract measures 3.1 cm,compared to the ascending thoracic aorta 2.6 cm. This may representpulmonary arterial hypertension. Again noted is partial anomalous pulmonary venous return, with the right upper andlower pulmonary veins draining into the SVC. See for example series 3,image 154. CORONARY ARTERY CALCIFICATION: None. HEPATOBILIARY: In the inferior right hepatic lobe is a 7 mm low-densitylesion, too small to characterize further. This correlates with a cystseen on prior ultrasound. PANCREAS: Normal. SPLEEN: Normal. ADRENAL GLANDS: Left adrenal gland nodule not well seen, measuring about1.9 x 1.1 cm, previously 1.8 cm. This measures 18 Hounsfield units ontoday's unenhanced imaging. KIDNEYS/BLADDER: Normal. BOWEL: Stomach and small bowel unremarkable. No obstruction. Moderateamount of formed stool in the colon. LYMPH NODES: No bulky abdominopelvic lymphadenopathy. No ascites. No freeair. Small fat-containing left inguinal hernia. VASCULATURE: No abdominal aortic aneurysm. PELVIC ORGANS: Bilateral Essure devices. MUSCULOSKELETAL: Negative. IMPRESSION: 1. Although the 1.9 cm left adrenal nodule is indeterminate on today'sCT, it is unchanged in size and appearance compared to 202, and is likelybenign. 2. 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 3. Similar appearance of small mediastinal lymph nodes, in a patient witha history of sarcoidosis. us Rio Jaquez MD IMG CT ORDERABLES Final Re sult * Pap screen with HPV - recommended age 30 - 65 years (03/15/2023 10:12 AM CDT) Interpretation Negative for Intraepithelial Lesion or Malignancy (NILM) 03/17/2023 8:33 AM CDT [facility] at 0833 CDT Comment Papanicolaou Test Limitations: Cervical cytology is a screening test with limited sensitivity, and regular screening is critical for cancer prevention. Pap tests are primarily effective for the diagnosis/prevent ion of squamous cell carcinoma, not adenocarcinoma or other cancers. 03/17/2023 8:33 AM CDT [facility] Specimen Adequacy Satisfactory for evaluation, endocervical/solis sformation zone component absent 03/17/2023 8:33 AM CDT [facility] Clinical Information post-menopausal 03/17/2023 8:33 AM CDT [facility] Reflex Testing Yes regardless of result 03/17/2023 8:33 AM CDT [facility] Previous Abnormal? No 03/17/2023 8:33 AM CDT [facility] Performing Labs The technical component of this testing was completed at [facility] 03/17/2023 8:33 AM CDT [facility] Brushing CERVIX UTERI STRUCTURE / Unknown Non-blood Collection / Unknown 03/15/2023 10:12 AM CDT 03/15/2023 10:39 AM CDT us Rio HARPER - DELMIS DUMONT Final Resu lt [facility] Special[facility] Lab [address], [address] [place] [address], [facility] [phone] * HPV High Risk Types DNA Cervical (03/15/2023 10:12 AM CDT) Other HR HPV Negative Negative 03/18/2023 4:31 PM CDT [facility] HPV16 DNA Negative Negative 03/18/2023 4:31 PM CDT [facility] HPV18 DNA Negative Negative 03/18/2023 4:31 PM CDT [facility] FINAL DIAGNOSIS This patient's sample is negative for HPV DNA. This test was developed and its performance characteristics determined by the [facility], [facility]. It has not been cleared or approved by the FDA. The laboratory is regulated under CLIA as qualified to perform high-complexity testing. This test is used for clinical purposes. It should not be regarded as investigational or for research. METHODOLOGY: The [employer]ite Little 4800 system uses automated extraction, simultaneous amplification of HPV (L1 region) and beta-globin, followed by real time detection of fluorescent labeled HPV and beta globin using specific oligonucleotide probes. The test specifically identifies types HPV 16 DNA and HPV 18 DNA while concurrently detecting the rest of the high risk types (31, 33, 35, 39, 45, 51, 52, 56, 58, 59, 66 or 68). COMMENTS: This test is not intended for use as a screening device for woman under age 30 with normal cervical cytology. Results should be correlated with cytologic and histologic findings. Close clinical followup is recommended. 03/18/2023 4:31 PM CDT [facility] Brushing CERVIX UTERI STRUCTURE / Unknown Non-blood Collection / Unknown 03/15/2023 10:12 AM CDT 03/18/2023 8:00 AM CDT us Rio Jaquez MD LAB - BLOOD ORDERABLES Fin al Result [facility] [address], [address] [place] [address], [facility] [phone] * UA with Microscopic (02/15/2023 12:21 PM CDT) Color Urine Straw Colorless, Straw, Light Yellow, Yellow 02/15/2023 12:38 PM CDT [facility] Appearance Urine Clear Clear 02/16/20 12:38 PM CDT [facility] Glucose Urine Negative Negative mg/dL 02/15/2023 12:38 PM CDT [facility] Bilirubin Urine Negative Negative 12:38 PM CDT [facility] Ketones Urine Negative Negative mg/dL 02/15/2023 12:38 PM CDT [facility] Specific Scroggins Urine 1.003 1.003 - 1.035 02/15/2023 12:38 PM CDT [facility] Blood Urine Negative Negative 02/15/2023 12:38 PM CDT [facility] pH Urine 6.5 5.0 - 7.0 02/15/2023 12:38 PM CDT [facility] Protein Albumin Urine Negative Negative mg/dL 02/15/2023 12:38 PM CDT [facility] Urobilinogen Urine Normal Normal, 2.0 mg/dL 02/15/2023 12:38 PM CDT [facility] Nitrite Urine Negative Negative 02/15/2023 12:38 PM CDT [facility] Leukocyte Esterase Urine Negative Negative 02/15/2023 12:38 PM CDT [facility] RBC Urine <1 <=2 /HPF 02/15/2023 12:38 PM CDT [facility] WBC Urine 0 <=5 /HPF 02/15/2023 12:38 PM CDT [facility] Urine MID-STREAM URINE SPECIMEN / Unknown Non-blood Collection / Unknown 02/15/2023 12:21 PM CDT 02/15/2023 12:21 PM CDT us Laura Epperson NP LAB - URINE ORDERABLES Fi nal Result [facility] [address] 1st [place] [address] * PHQ-9 DEPRESSION SCREENING ORDER (06/16/2021) Pathologist [facility] PHQ9 SCORE 11 Lalitha Carpio - 06/16/2021 [facility] us Provider Outside OTHER Final Result * Hepatitis C antibody (11/20/2020 9:24 AM CDT) [facility] Hepatitis C Antibody Negative Negative 11/20/2020 1:[address] [facility] Blood specimen (specimen) (Line) VAD(CVC, PICC) / Unknown 11/20/2020 9:24 AM CDT 11/20/2020 11:21 AM CDT us Omar Mejia MD LAB - BLOOD ORDERABLES Final Re sult [facility] [address] [address], [facility] [phone] [facility] [address] [place] [address] * COLONOSCOPY (03/02/2019 7:16 AM CDT) Pathologist [facility] COLONOSCOPY [address] [place] [address] [phone] Endoscopy Department Patient Name: Carol Arellano Procedure Date: 03/02/2019 7:16 AM Date of : 1970 Admit Type: Outpatient Age: 48 Room: [facility] Gender: Female Note Status: Finalized Attending MD: Joselin Mederos MD Total Sedation Time: Procedure: Colonoscopy Indications: Chronic diarrhea Providers: Joselin Mederos MD, Christiano Merrill RN Referring MD: Adonay Mcwilliams MD, Rio Jaquez MD Medicines: Monitored Anesthesia Care Procedure: Pre-Anesthesia Assessment: - Prior to the procedure, a History and Physical was performed, and patient medications and allergies were reviewed. The patient is competent. The risks and benefits of the procedure and the sedation options and risks were discussed with the patient. All questions were answered and informed consent was obtained. Patient identification and proposed procedure were verified by the physician in the procedure room. Mental Status Examination: alert and oriented. Airway Examination: normal oropharyngeal airway and neck mobility. Respiratory Examination: clear to auscultation. CV Examination: normal. Prophylactic Antibiotics: The patient does not require prophylactic antibiotics. Prior Anticoagulants: The patient has taken no previous anticoagulant or antiplatelet agents. ASA Grade Assessment: III - A patient with severe systemic disease. After reviewing the risks and benefits, the patient was deemed in satisfactory condition to undergo the procedure. The anesthesia plan was to use monitored anesthesia care (MAC). Immediately prior to administration of medications, the patient was re-assessed for adequacy to receive sedatives. The heart rate, respiratory rate, oxygen saturations, blood pressure, adequacy of pulmonary ventilation, and response to care were monitored throughout the procedure. The physical status of the patient was re-assessed after the procedure. After obtaining informed consent, the colonoscope was passed under direct vision. Throughout the procedure, the patient's blood pressure, pulse, and oxygen saturations were monitored continuously. The Colonoscope was introduced through the anus and advanced to the cecum, identified by appendiceal orifice and ileocecal valve. The colonoscopy was performed without difficulty. The patient tolerated the procedure well. The quality of the bowel preparation was good. Findings: A few small-mouthed diverticula were found in the sigmoid colon. Bleeding secondary to a maneuver was found in the cecum. Biopsies were taken with a cold forceps in the descending colon and in the ascending colon for histology. Impression: - Diverticulosis in the sigmoid colon. - Blood in the cecum, appreaed to be secondary to barotrauma. - Biopsies were taken with a cold forceps for histology in the descending colon and in the ascending colon. Recommendation: - Await pathology results. electronically signed by Joselin Mederos ____ Joselin Mederos MD 03/02/2019 9:36:38 AM I was physically present for the entire viewing portion of the exam. Signature of teaching physician B4c/Reyna Mederos MD Number of Addenda: 0 Note Initiated On: 03/02/2019 7:16 AM Scope In: Scope Out: RADIOLOGY RESULTS 03/02/2019 7:16 AM CDT Rio Jqauez MD PROCEDURES Final Resu lt RADIOLOGY RESULTS * (ABNORMAL) Drug abuse screen 8 urine (UR) (05/30/2010 2:50 AM CDT) Amphetamine Qual Urine Negative [facility] Comment:Cutoff for a negativ e amphetamine is 500 ng/mL or less. Ethanol Qual Urine Negative [facility] Comment:Cutoff for a negativ e urine ethanol is 50 mg/dL or less. Opiates Qualitative Urine Positive(A) [facility] Comment: Cutoff for a positive opiate is greater than 300 ng/mL. This is an unconfirmed screening result to be used for medical purposes only. PCP Qual Urine Negative [facility] Comment:Cutoff for a negativ e PCP is 25 ng/mL or less. Benzodiazepine Qual Urine Negative NEG MISYS Comment:Cutoff for a negativ e benzodiazepine is 200 ng/mL or less. Barbiturates Qual Urine Negative NEG MISYS Comment:Cutoff for a negativ e barbiturate is 200 ng/mL or less. Cocaine Qual Urine Negative NEG MISYS Comment:Cutoff for a negativ e cocaine is 300 ng/mL or less. Cannabinoids Qual Urine Negative NEG MISYS Comment:Cutoff for a negativ e cannabinoid is 50 ng/mL or less. 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 10/23/2020 10/21/2020 Insurance MEDICARE [facility] OUT OF STATE MEDICARE [facility] OUT OF STATE MEDICARE [facility] OUT OF STATE * Guarantor: Carol Burrell Account Type Relation to Patient Date of Phone Billing Address Medication Therapy Self [id number] [address] MEDICARE Advance Directives For more information, please contact: [phone] * Full Code (Latest Code Status on File) Date Activated Date Inactivated Comments 02/09/2024 2:47 AM 02/09/2024 5:03 PM All basic and advanced life-sustaining interventions are performed as appropriate Question Answer Comments Code status determined by: Discussion with patie nt/ legal decision maker * Full Code Date Activated Date Inactivated Comments 01/11/2021 6:56 PM 01/17/2021 8:15 PM All basic and advanced life-sustaining interventions are performed as appropriate Question Answer Comments Code status determined by: Discussion with patie nt/ legal decision maker * Full Code Date Activated Date Inactivated Comments 01/02/2021 12:45 PM 01/06/2021 6:11 PM All basic a nd advanced life-sustaining interventions are performed as appropriate Question Answer Comments Code status determined by: Discussion with patie nt/ legal decision maker * Full Code Date Activated Date Inactivated Comments 12/21/2020 5:21 PM 01/02/2021 11:45 AM Question Answer Comments Code status determined by: Discussion with patie nt/ legal decision maker * Full Code Date Activated Date Inactivated Comments 12/13/2020 10:26 PM 12/21/2020 5:21 PM All basic an d advanced life-sustaining interventions are performed as appropriate Question Answer Comments Code status determined by: Discussion with patie nt/ legal decision maker Care Teams Director Of Distance Learning Relationship Specialty Start Date End Date Omar Carmona MD [address] [place], [place] 305255 PCP - General Family Medicine 07/14/24 Barry Kilpatrick MD 909 [facility] AG0021GR [place], [place] 166775 Neurology 07/19/14 Michelle Henderson I, RN Nurse Coordinator Neurology 07/19/14 Rio Jaquez MD [address] [address] Family Practice 10/15/14 Jemima Jaramillo MD [address] [place] [address] donor relations manager 11/20/14 Kelley Chin, TANIA [address] [address] Nurse Coordinator Cardiology 11/04/15 Sydnee Saleem MD [address] [place] [address] 508 [place], [place] 824565 Cardiology 11/04/15 Karlene Moya MD [address] [place] [address] [phone] Ophthalmology 06/24/17 Wilbert Quintero OD [address] [place] [address] 7[address] Optometry 06/24/17 Rod Gauthier DPM [address] [place] [address] 79259 Sprue Cutting Press Operator Primary Podiatric Medicine 06/21/18 Jna Mahmood MD [address] [place] [address] Gastroenterology 11/05/20 Brandt Quintana MD [address] [place] [address] Resident 11/05/20 Jan Mahmood MD [address] [place] [address] [address] [place] [address] Assigned Gastroenterology Provider 12/01/20 Dom Eason MD 717 [facility] 353 [place] [address] Internal Medicine 12/02/20 Jaimie Vernon, RN Specialty Dianeticist Cardiology 10/28/21 Marquise Hanley MD [address] [place] [address]08 Endocrinology, Diabetes, and Metabolism 03/05/22 Vlad Ramey MD [address] [place] [address] 20512 Cardiovascular Disease 05/07/22 Joesph Crowe MD [address] [place] [address] 7[address]53 Surgery 05/07/22 Michelle Padilla RN Specialty Dianeticist Cardiology 07/03/22 Marquise Hanley MD [address] [place] [address] Assigned Endocrinology Provider 08/15/22 Wagner Oliver MD [address] [place] [address] Critical Care 12/15/22 Joesph Crowe MD [address] [place] [address] 61542 Surgery 03/17/23 Adonay Haq MD [address] [place] [address] 7[address]26 Internal Medicine 06/14/23 Ruth Riddle, DPM, Podiatry/Foot and Ankle Surgery [address] ROD[place]IG[place]Z [address] [place] [address] Assigned Musculoskeletal Provider 10/22/23 Jignesh Mathias MD [address] [place] [address] 494285 Gastroenterology 09/25/24 Omar Carmona MD [address] [place] [address] [phone] Assigned PCP 12/29/24 Jason Alvares MD [address] [place] [address] [phone] Assigned Neuroscience Provider 12/29/24 Jignesh Mathias MD [address] [place] [address] 92723 Assigned Surgical Provider 12/29/24 Ayad Lopez, PhD LP [address] [place] [address] 189135 Assigned Behavioral Health Provider 02/28/25 Gavi Nieto PA-C [address] [place] [address] [phone] Physician Clinical Asst Dermatology 03/19/25
--- OUTSIDE RECORDS SUMMARY | 2025-03-24 20:25 | XMS_ITS | Encounter Summary ---
Author Organization [facility] Address [address] [place] [address] Care Team Providers Care On Site Construction Superintendent Name Role Phone Rio Jaquez MD Primary Care Provider Barry Kilpatrick MD Unavailable Michelle Henderson RN Unavailable [phone] Rio Jaquez MD Unavailable +[phone] Jemima Jaramillo MD Unavailable Unavai Kelley Bautista RN Unavailable [phone] Sydnee Saleem MD Unavailable +[phone] Karlene Moya MD Unavailable +[phone] Wilbert Quintero OD Unavailable +[phone] Rod GauthierM Unavailable +[phone] Nallely Hogue RN Unavailable Unavailable Larisa Vargas RN Unavailable Unavailable Jan Mahmood MD Unavailable +[phone] Brandt Quintana MD Unavailable +[phone] Jan Mahmood MD Unavailable +[phone] Rio Jaquez MD Unavailable +[phone] Dom Eason MD Unavailable +[phone] Jayla Plaza RN Unavailable +[phone] Sydnee Saleem MD Unavailable Cristian Barragan MD Unavailable Jaimie Vernon RN Unavailable Unavailable Ruth Riddle DPM, Podiatry /Foot and Ankle Surgery Unavailable Jason Alvares MD Unavailable Marquise Hanley MD Unavailable +[phone] Vlad Ramey MD Unavailable +[phone] Joesph Crowe MD Unavailable + [phone] Luis Arrington MD Unavailable +[phone] Michelle Padilla RN Unavailable Unavaila ble Vlad Ramey MD Unavailable +[phone] Marquise Hanley MD Unavailable +[phone] Dom Eason MD Unavailable +[phone] Wagner Oliver MD Unavailable +[phone] Laura Epperson NP Unavailable +[phone] Thom Taveras MD Unavailable +[phone] Joesph Crowe MD Unavailable +[phone] Joesph Crowe MD Unavailable + [phone] Adonay Haq MD Unavailable +[phone] Denilson Srinivasan MD Unavailable + [phone] Jason Alvares MD Unavailable Ruth Riddle DPM, Podiatry /Foot and Ankle Surgery Unavailable Omar Carmona MD Primary Care Provider [phone] Jignesh Mathias MD Unavailable Adonay Haq MD Unavailable [phone] Omar Carmona MD Unavailable +[phone] Jason Alvares MD Unavailable Jignesh Mathias MD Unavailable Ayad Lopez PhD LP Unavailable [phone] Gavi Nieto PA-C Unavailable +[phone] Encounter Details Date Type Department Care Team (Late st Contact Info) Description 01/14/2022 MyC Medical Advice Initial Department Lizbeth Lopes Social History Tobacco Use Types [...] than three times a week 08/27/2021 Attends Shinto Services Not on file 08/27 Do you [...] PHQ-2 Answer Date Recorded PHQ-2 Score 2 08/27/2021 [facility] - Occupational [...] Sex Assigned at Female 09/12/2020 12:05 PM CONSTRUCTION TECHNICIAN Legal Sex Female 3:26 AM CONSTRUCTION TECHNICIAN Gender Identity Female 09/12/2020 12:05 PM CONSTRUCTION TECHNICIAN Sexual Orientation Straight 12/19/2021 10 :44 [...] suspected to have Coronavirus/COVID-19? No / Unsure 01/15/2022 11:21 AM CDT documented as of this encounter Plan of Treatment Upcoming Encounters Date Type Department Care Team (Late st Contact Info) Description 03/26/2025 11:00 AM CDT Therapy Visit [address] [phone] Jason Alvares MD 420 [facility] [address] [place] [address] Chaya Castillo, OTR RUSS [address] [address] 03/29/2025 10:30 AM CDT Therapy Visit [facility] [address] [place] [phone] [place] [address] [place] [address] 04/02/2025 11:00 AM CDT Therapy Visit [address] [phone] Jason Alvares MD [address] [place] [address] Chaya Castillo, OTR [facility] [place] [address] [place] [address] 04/11/2025 12:30 PM CDT Office Visit [facility] [address] 4th [place] [phone] Omar Carmona MD [address] [place] [address] 04/12/2025 2:15 PM CDT Therapy Visit [facility] [address] [facility] [place] [phone] Jason Alvares MD [address] [place] [address] Chaya Castillo OTR [facility] [place] [address] [place] [address] 04/16/2025 11:00 AM CDT Therapy Visit [facility] [address] [place] [phone] Jason Alvares MD [address] [place] [address] Chaya Castillo OTR [facility] [place] [address] [place] [address] 04/23/2025 11:00 AM CDT Therapy Visit [facility] [place] [address] [facility] [place] [phone] Jason Alvares MD [address] [place] [address] Chaya Castillo, OTR [facility] 150 [place] [address] 04/30/2025 11:00 AM CDT Therapy Visit [facility] 150 [place] [phone] Jason Alvares MD [address] [place] [address] Chaya Castillo OTR [address] [address] 05/15/2025 12:30 PM CDT Office Visit [address] [phone] Marquise Hanley MD [address] [place] [address] 06/08/2025 9:15 AM CDT Office Visit [facility] [address] [phone] Jignesh Mathias MD [address] [place] [address] 615885 11/05/2025 1:45 PM CDT Office Visit [facility] [address] 3rd [place] [phone] Gavi Nieto PA-C Dermatology [address] [place] [address] documented as of this encounter Goals Goal Patient Goal Type Associated Problems Recent Progress Patient-Stated? Author Quit smoking / using tobacco Lifestyle Rio Will MD Note: 11/17/14 planned quit date documented as of this encounter Visit Diagnoses Not on filedocumented in this encounter Additional Health Concerns Infection Onset Date Last Indicated Resolved Time MRSA Comment:Added from external infection. 10/23/2020 10/21/2020 Rule Out COVID-19 02/09/2024 02/09/2024 02/09/2024 1:52 AM CDT Assessment Noted Time PHQ-9 Depression Total Score: 5 08/27/19 22 9:25 AM CONSTRUCTION TECHNICIAN documented as of this encounter Care Teams On Site Construction Superintendent Relationship Specialty Start Date End Date Rio Jaquez MD [address] [place] [address] 294605 PCP - General Family Practice 12/02/10 07/13/24 Omar Carmona MD [address] [place] [address] [phone] PCP - General Family Medicine 07/14/24 Barry Kilpatrick MD [address] [place] [address] [id number] [place], [place] [phone] Neurology 07/19/14 Michelle Henderson RN Nurse Coordinator Neurology 07/19/14 Rio Jaquez MD [address] [place] [address] [phone] Family Practice 10/15/14 Jemima Jaramillo MD loom changer 11/20/14 Kelley Chin, TANIA [address] [phone] Nurse Coordinator Cardiology 11/04/15 Sydnee Saleem MD [address] [place] [address] 508 [place] [address] Cardiology 11/04/15 Karlene Moya MD [address] [place] [address] Ophthalmology 06/24/17 Wilbert Quintero, OD [address] [place] [address] [phone] Optometry 06/24/17 Rod Gauthier DPM [address] [place] [address] [phone] Stacker Operator Primary Podiatric Medicine 06/21/18 Nallely Hogue, RN Registered Nurse 02/20/19 11/23/22 Larisa Vargas, TANIA Specialty Hand Shoe Cutter Cardiology 04/18/19 03/06/22 Jan Mahmood MD [address] [place] [address] [address] [place] [address] Gastroenterology 11/05/20 Brandt Quintana MD [address] [place] [address] Resident 11/05/20 Jan Mahmood MD [address] [place] [address] 09120 Assigned Gastroenterology Provider 12/01/20 Rio Jaquez MD 9 [facility] [address] [place] [address] Assigned PCP 11/17/20 09/30/24 Dom Eason MD 717 [facility] 353 [place] [address] Internal Medicine 12/02/20 Jayla Plaza, RN Specialty Hand Shoe Cutter Hepatology 01/09/21 02/13/24 Sydnee Saleem MD 6550 [facility] [address] [place] [address] [phone] Assigned Heart and Vascular Provider 02/02/21 07/24/22 Cristian Barragan MD 2945 [place] [address] Assigned Infectious Disease Provider 02/21/21 03/06/22 Jaimie Vernon, TANIA Specialty Hand Shoe Cutter Cardiology 10/28/21 Ruth Riddle DPM, Podiatry/Foot and Ankle Surgery [address] [facility] 300 [place] [address] Assigned Musculoskeletal Provider 11/30/21 09/30/23 Jason Alvares MD 420 [facility] 295 [place], [place] 549175 Assigned Neuroscience Provider 01/03/22 05/15/22 Marquise Hanley MD [address] [place] [address] 217355 Endocrinology, Diabetes, and Metabolism 03/05/22 Vlad Ramey MD [address] [place] [address] [phone] Cardiovascular Disease 05/07/22 Joesph Crowe MD [address] [place] [address] 86785 Surgery 05/07/22 Luis Arrington MD [address] [place] [address] 59763 Assigned Neuroscience Provider 05/16/22 05/14/23 Michelle Padilla, TANIA Specialty Hand Shoe Cutter Cardiology 07/03/22 Vlad Ramey MD [address] [place] [address] [phone] Assigned Heart and Vascular Provider 07/25/22 05/28/23 Marquise Hanley MD [address] [place] [address] [phone] Assigned Endocrinology Provider 08/15/22 Dom Eason MD 717 [facility] [address] [place], [place] [phone] Assigned Nephrology Provider 11/28/22 02/19/23 Wagner Oliver MD [address] [place] [address] Critical Care 12/15/22 Laura Epperson NP 717 [facility] [address] [place] [address] Assigned Nephrology Provider 02/20/23 08/30/24 Thom Taveras MD [address] [place], [place] [phone] Assigned Cancer Care Provider 02/06/23 08/20/23 Joesph Crowe MD [address] [place] [address] 92068 MD Surgery 03/17/23 Joesph Crowe MD [address] [place] [address] 62826 Assigned Surgical Provider 04/03/23 09/30/24 Adonay Haq MD [address] [place] [address] 268605 Internal Medicine 06/14/23October, Denilson Jackson MD [address] 852605 Assigned Heart and Vascular Provider 05/29/23 11/28/24 Jason Alvares MD [address] [place] [address] 457345 Assigned Neuroscience Provider 05/15/23 11/28/24 Ruth Riddle DPM, Podiatry/Foot and Ankle Surgery [address] [place] [address] Assigned Musculoskeletal Provider 10/22/23 Jignesh Mathias MD [address] [place] [address] [phone] Gastroenterology 09/25/24 Adonay Haq MD [address] [place] [address] 153175 Assigned PCP 10/01/24 12/28/24 Omar Carmona MD [address] [place] [address] 55455 Assigned PCP 12/29/24 Jason Alvares MD [address] [place] [address] 55[address] Assigned Neuroscience Provider 12/29/24 Jignesh Mathias MD [address] [place] [address] 55455 Assigned Surgical Provider 12/29/24 Ayad Lopez, PhD LP [address] [place] [address] Assigned Behavioral Health Provider 02/28/25 Gavi Nieto, PA-C [address] [place] [address] [phone] Physician Gas Operations Superintendent Dermatology 03/19/25 documented as of this encounter
--- OUTSIDE RECORDS SUMMARY | 2025-03-24 20:26 | XMS_ITS | Encounter Summary ---
Author Organization [place] Address [address] [place] [address] 68454 Care Team Providers Care Supervisor Fur Floor Worker Name Role Phone Rio Jaquez MD Primary Care Provider + [phone] Barry Kilpatrick MD Unavailable Michelle Henderson RN Unavailable [phone] Rio Jaquez MD Unavailable +[phone] Jemima Jaramillo MD Unavailable Unavai Kelley Bautista RN Unavailable +[phone] Sydnee Saleem MD Unavailable +[phone] Karlene Moya MD Unavailable +[phone] Wilbert Quintero OD Unavailable +[phone] Rod Gauthier DPM Unavailable + [phone] Nallely Hogue RN Unavailable Unavailable Larisa Vargas RN Unavailable Unavailable Rio Jaquez MD Unavailable +[phone] Ruth Yarbrough MD Unavailable +[phone] Francisco Lott MD Unavailable +[phone] Sydnee Saleem MD Unavailable +[phone] Greg Ortega MD Unavailable Jan Mahmood MD Unavailable Brandt Quintana MD Unavailable Jan Mahmood MD Unavailable Rio Jaquez MD Unavailable Dom Eason MD Unavailable Jayla Plaza RN Unavailable Jayla Plaza RN Unavailable +[phone] Sydnee Saleem MD Unavailable Phan Coello MD Unavailable Unavailable Cristian Barragan MD Unavailable Dom Eason MD Unavailable Jaimie Vernon RN Unavailable Unavailable Ruth RiddleM, Podiatry /Foot and Ankle Surgery Unavailable Luis Arrington MD Unavailable Jason Alvares MD Unavailable Marquise Hanley MD Unavailable +[phone] Vlad Ramey MD Unavailable +[phone] Joesph Crowe MD Unavailable Luis Arrington MD Unavailable +[phone] Michelle Padilla RN Unavailable Unavaila ble Vlad Ramey MD Unavailable Marquise Hanley MD Unavailable +[phone] Dom Eason MD Unavailable Wagner Oliver MD Unavailable Laura Epperson NP Unavailable +[phone] Thom Taveras MD Unavailable Joesph Crowe MD Unavailable +[phone] Joesph Crowe MD Unavailable +[phone] Adonay Haq MD Unavailable Zarina Denilson Jackson MD Unavailable +[phone] Jason Alvares MD Unavailable Ruth Riddle DPM, Podiatry /Foot and Ankle Surgery Unavailable Omar Carmona MD Primary Care Provider [phone] Jignesh Mathias MD Unavailable Adonay Haq MD Unavailable +[phone] Omar bragg MD Unavailable +[phone] Jason Alvares MD Unavailable Jignesh Mathias MD Unavailable Ayad Lopez PhD LP Unavailable +[phone] Gavi Nieto PA-C Unavailable +[phone] Encounter Details Date Type Department Care Team (Late st Contact Info) Description 09/27/2020 Records - [facility] CONVERSION Scan, Non-Provider Social History Tobacco Use Types Packs/Day Years Used Date Smoking Tobacco: Every Day Cigarettes 0.5 42.6 Started: 08/09/1982 Smokeless Tobacco: Never Alcohol Use Standard Drinks/Week Comments Yes 0 (1 standard drink = 0.6 oz pur e alcohol) twice weekly PHQ-2 Answer Date Recorded PHQ-2 Score 1 06/03/2020 Comments No Sex and Gender Information Value Date Recorded Sex Assigned at Female 09/12/2020 12:05 PM COLOR PRINT INSPECTOR Legal Sex Female 3:26 AM COLOR PRINT INSPECTOR Gender Identity Female 09/12/2020 12:05 PM COLOR PRINT INSPECTOR Sexual Orientation Straight 12/19/2021 10 :44 AM CDT Occupation Industry Job Start Date Job End Date on disability for FMS Not on file Not on file Not on file COVID-19 Exposure Response Date Recorded In the last month, have you been in contact with someone who was confirmed or suspected to have Coronavirus / COVID-19? No / Unsure 09/16/2020 7:59 AM COLOR PRINT INSPECTOR documented as of this encounter Plan of Treatment Upcoming Encounters Date Type Department Care Team (Late st Contact Info) Description 03/26/2025 11:00 AM CDT Therapy Visit [facility] [address] [place] [phone] Jason Alvares MD [address] [place] [address] [phone] Chaya Castillo OTR [address] 947307 03/29/2025 10:30 AM CDT Therapy Visit [facility] [address] [place] [phone] [place] [address] [place], [place] [phone] 04/02/2025 11:00 AM CDT Therapy Visit [address] [phone] Jason Alvares MD [address] [place] [address] [phone] Chaya Castillo OTR [address] 376267 04/11/2025 12:30 PM CDT Office Visit [facility] [address] 4th [place] [phone] Omar Carmona MD [address] [place] [address] 626975 04/12/2025 2:15 PM CDT Therapy Visit [facility] [address] [place] [address] Jason Alvares MD [address] [place] [address] Chaya Castillo OTR [facility] 150 [place] [address] 04/16/2025 11:00 AM CDT Therapy Visit [address] [phone] Jason Alvares MD [address] [place] [address] Chaya Castillo OTR [facility] [address] [place] [address] 04/23/2025 11:00 AM CDT Therapy Visit [address] [phone] Jason Alvares MD [address] [place] [address] 11866 Chaya Castillo OTR [facility] [address] [place] [address] 04/30/2025 11:00 AM CDT Therapy Visit [address] [phone] Jason Alvares MD [address] [place] [address] 9[address] Chaya Castillo OTR [address] [address] 05/15/2025 12:30 PM CDT Office Visit [facility] [address] [place] [phone] Marquise Hanley MD [address] [place] [address] 06/08/2025 9:15 AM CDT Office Visit [facility] [address] [phone] Jignesh Mathias MD [address] [place] [address] 232585 11/05/2025 1:45 PM CDT Office Visit [facility] [address] 3rd [place] [address] Gavi Nieto PA-C Dermatology [address] [place] [address] [phone] documented as of this encounter Goals Goal [...] Depression Total Score: 12 021 9:43 AM COLOR PRINT INSPECTOR documented as of this encounter Care Teams Supervisor Fur Floor Worker Relationship Specialty Start Date End Date Rio Jaquez MD [address] [place] [address] 85015 PCP - General Family Practice 12/02/10 07/13/24 Omar Carmona MD [address] [place] [address] 32458 PCP - General Family Medicine 07/14/24 Barry Kilpatrick MD [address] [place] [address] [id number] [place], [place] 955135 Neurology 07/19/14 Michelle Henderson I, TANIA Nurse Coordinator Neurology 07/19/14 Rio Jaquez MD [address] [place] [address] [phone] Family Practice 10/15/14 Jemima Jaramillo MD compounding pharmacy technician 11/20/14 Kelley Chin, TANIA [address] [phone] Nurse Coordinator Cardiology 11/04/15 Sydnee Saleem MD [address] [place] [address] 508 [place], [place] 302675 Cardiology 11/04/15 Karlene Moya MD [address] [place] [address] 395215 Ophthalmology 06/24/17 Wilbert Quintero OD [address] [place] [address] [phone] Optometry 06/24/17 Rod Gauthier DPM [address] [place] [address] 555295 Demographic Analyst Primary Podiatric Medicine 06/21/18 Nallely Hogue, RN Registered Nurse 02/20/19 11/23/22 Larisa Vargas, RN Specialty Chief Medical Physicist Cardiology 04/18/19 03/06/22 Rio Jaquez MD [address] [place] [address] 4 [place] [address] Assigned PCP 12/28/19 11/16/20 Ruth Yarbrough MD [address] [place] [address] 101 [place], [place] 628855 Assigned Endocrinology Provider 05/31/20 09/28/20 Frnacisco Lott MD [address] [place] [address] 88 [place], [place] 916715 Assigned Rheumatology Provider 05/31/20 12/13/21 Sydnee Saleem MD 6550 [facility] [address] [place] [address] [phone] Assigned Heart and Vascular Provider 05/31/20 10/22/20 Greg Ortega MD [address] [place] [address] 0[address] Assigned Surgical Provider 06/23/20 12/06/21 Jan Mahmood MD [address] [place] [address] 2A [place] [address] Gastroenterology 11/05/20 Brandt Quintana MD 1414 [place] [address] Resident 11/05/20 Jan Mahmood MD 516 [facility] 2A [place] [address] Assigned Gastroenterology Provider 12/01/20 Rio Jaquez MD 909 [facility] 4 [place], [place] 826095 Assigned PCP 11/17/20 09/30/24 Dom Eason MD [address] [place] [address] 353 [place], [place] 965564 Internal Medicine 12/02/20 Jayla Plaza, RN Specialty Chief Medical Physicist Hepatology 01/09/21 02/13/24 Jayla Plaza, RN Specialty Chief Medical Physicist Hepatology 01/10/21 01/10/21 Sydnee Saleem MD [address] [address] Assigned Heart and Vascular Provider 02/02/21 07/24/22 Phan Coello MD Assigned Neuroscience Provider 02/21/21 11/22/21 Cristian Barragan MD [facility]5 [place] [address] Assigned Infectious Disease Provider 02/21/21 03/06/22 Dom Eason MD [address] [place] [address] 353 [place] [address] Assigned Nephrology Provider 04/20/21 01/02/22 Jaimie Vernon, RN Specialty Chief Medical Physicist Cardiology 10/28/21 Ruth Riddle DPM, Podiatry/Foot and Ankle Surgery [address] [place] [address] Assigned Musculoskeletal Provider 11/30/21 09/30/23 Luis Arrington MD [address] [place] [address] 00752 Assigned Neuroscience Provider 11/23/21 01/02/22 Jason Alvares MD [address] [place] [address] 295 [place] [address] Assigned Neuroscience Provider 01/03/22 05/15/22 Marquise Hanley MD [address] [place] [address] 00724 Endocrinology, Diabetes, and Metabolism 03/05/22 Vlad Ramey MD [address] [place] [address] 59775 Cardiovascular Disease 05/07/22 Joesph Crowe MD [address] [place] [address] 11255 Surgery 05/07/22 Luis Arrington MD [address] [place] [address] 87884 Assigned Neuroscience Provider 05/16/22 05/14/23 Padilla, Michelle M, RN Specialty Chief Medical Physicist Cardiology 07/03/22 Vlad Ramey MD [address] [place] [address] Assigned Heart and Vascular Provider 07/25/22 05/28/23 Marquise Hanley MD [address] [place] [address] 25400 Assigned Endocrinology Provider 08/15/22 Dom Eason MD 717 [facility] 353 [place] [address] Assigned Nephrology Provider 11/28/22 02/19/23 Wagner Oliver MD [address] [place] [address] Critical Care 12/15/22 Laura Epperson NP [address] [place] [address] 1932 [place] [address] Assigned Nephrology Provider 02/20/23 08/30/24 Thom Taveras MD [address] [place] [address], R105 [place] [address] Assigned Cancer Care Provider 02/06/23 08/20/23 Joesph Crowe MD [address] [place] [address] 90669 Surgery 03/17/23 Joesph Crowe MD [address] [place] [address] 12683 Assigned Surgical Provider 04/03/23 09/30/24 Adonay Haq MD [address] [place] [address] 57187 Internal Medicine 06/14/23 Denilson Srinivasan MD [address] [place] [address] Assigned Heart and Vascular Provider 05/29/23 11/28/24 Jason Alvares MD [address] 733315 Assigned Neuroscience Provider 05/15/23 11/28/24 Ruth Riddle DPVik, Podiatry/Foot and Ankle Surgery [address] [place] [address] Assigned Musculoskeletal Provider 10/22/23 Jignesh Mathias MD [address] [place] [address] 43361 Gastroenterology 09/25/24 Adonay Haq MD [address] [place] [address] 41588 Assigned PCP 10/01/24 12/28/24 Omar Carmona MD [address] [place] [address] 04444 Assigned PCP 12/29/24 Jason Alvares MD [address] [address] Assigned Neuroscience Provider 12/29/24 Jignesh Mathias MD [address] [place] [address] 822655 Assigned Surgical Provider 12/29/24 Ayad Lopez, PhD LP [address] [place] [address] Assigned Behavioral Health Provider 02/28/25 Gavi Nieto PA-C [address] [place] [address] Physician Assistant Winemaker Dermatology 03/19/25 documented as of this encounter
--- OUTSIDE RECORDS SUMMARY | 2025-03-24 20:26 | XMS_ITS | Encounter Summary ---
Author Organization [place] Address [address] [place] [address] Care Team Providers Care Advertising Internship Name Role Phone Rio Jaquez MD Primary Care Provider Barry Kilpatrick MD Unavailable Michelle Henderson RN Unavailable [phone] Rio Jaquez MD Unavailable +[phone] Jemima Jaramillo MD Unavailable Unavai Kelley Bautista RN Unavailable +[phone] Sydnee Saleem MD Unavailable +[phone] Karlene Moya MD Unavailable +[phone] Wilbert Quintero OD Unavailable +[phone] Rod Gauthier DPM Unavailable +[phone] Nallely Hogue RN Unavailable Unavailable Larisa Vargas RN Unavailable Unavailable Francisco Lott MD Unavailable +[phone] Jan Mahmood MD Unavailable +[phone] Brandt Quintana MD Unavailable Jan Mahmood MD Unavailable +[phone] Rio Jaquez MD Unavailable +[phone] Dom Eason MD Unavailable +[phone] aJyla Plaza RN Unavailable +[phone] Sydnee Saleem MD Unavailable +[phone] Cristian Barragan MD Unavailable +[phone] Dom Eason MD Unavailable +[phone] Jaimie Vernon RN Unavailable Unavailable Ruth Riddle DPM, Podiatry /Foot and Ankle Surgery Unavailable Luis Arrington MD Unavailable +[phone] Jason Alvares MD Unavailable Marquise Hanley MD Unavailable +[phone] Vlad Ramey MD Unavailable +[phone] Joesph Crowe MD Unavailable + [phone] Luis Arrington MD Unavailable +[phone] Michelle Padilla RN Unavailable Unavaila ble Vlad Ramey MD Unavailable +[phone] Marquise Hanley MD Unavailable +[phone] Dom Eason MD Unavailable +[phone] Wagner Oliver MD Unavailable + [phone] Laura Epperson NP Unavailable +[phone] Thom Taveras MD Unavailable +[phone] Joesph Crowe MD Unavailable + [phone] Joesph Crowe MD Unavailable + [phone] Adonay Haq MD Unavailable +[phone] Denilson Srinivasan MD Unavailable + [phone] Jason Alvares MD Unavailable Ruth Riddle DPM, Podiatry /Foot and Ankle Surgery Unavailable Omar Carmona MD Primary Care Provider [phone] Jignesh Mathias MD Unavailable Adonay Haq MD Unavailable +[phone] Omar Carmona MD Unavailable +[phone] Jason Alvares MD Unavailable Jignesh Mathias MD Unavailable Ayad Lopez PhD LP Unavailable +[phone] Gavi Nieto PA-C Unavailable +[phone] Encounter Details Date Type Department Care Team (Late st Contact Info) Description 12/09/[address] [facility] Medical Advice [facility] [address] 4th [place] [address] Rio Jaquez MD [address] [place] [address] 4 [place] [address] Social History Tobacco Use Types [...] than three times a week 08/27/2021 Attends [employer] Not on file 08/27 Do you belong to any clubs o r organizations such as latter-day groups, unions, [email or web address] or athletic groups, or school groups? No [...] Answer Date Recorded PHQ-2 Score 2 08/27/2021 [facility] [...] Sex Assigned at Female 09/12/2020 12:05 PM SUPERVISOR CELL EFFICIENCY Legal Sex Female 3:26 AM SUPERVISOR CELL EFFICIENCY Gender Identity Female 09/12/2020 12:05 PM SUPERVISOR CELL EFFICIENCY Sexual Orientation Straight 12/19/2021 10 :44 AM [...] suspected to have Coronavirus/COVID-19? No / Unsure 12/04/2021 9:59 AM CDT documented as of this encounter Miscellaneous Notes * Telephone Encounter - Eliana Chacon - 12/11/2021 1:38 PM CDT Pre-Op already schedule 12/24 at 9:00 AM with PCP * Telephone Encounter - Charo Modi - 12/10/2021 1:29 PM CDT documented in this encounter Plan of Treatment Upcoming Encounters Date Type Department Care Team (Late st Contact Info) Description 03/26/2025 11:00 AM CDT Therapy Visit [facility] [address] [facility] [place] [phone] Jason Alvares MD [address] [place] [address] 947775 Chaya Castillo, OTR [facility] [address] [place] [address] 03/29/2025 10:30 AM CDT Therapy Visit [facility] [address] [place] [phone] [place] [address] [place], [place] 807477 04/02/2025 11:00 AM CDT [facility] 150 [place] [phone] Jason Alvares MD [address] [place] [address] 682325 Chaya Castillo, OTR [facility] [address] [place] [address] 04/11/2025 12:30 PM CDT Office Visit [facility] [address] 4th [place] [address] Omar Carmona MD [address] [place] [address] 04/12/2025 2:15 PM CDT [facility] 150 [place] [phone] Jason Alvares MD [address] [place] [address] Chaya Castillo OTR [facility] [place] [address] [place] [address] 04/16/2025 11:00 AM CDT Therapy Visit [facility] 150 [facility] [address] Jason Alvares MD [address] [place] [address] Chaya Castillo OTR [facility] 150 [place] [address] 04/23/2025 11:00 AM CDT [facility] [address] [facility] [place] [phone] Jason Alvares MD [address] [place] [address] Chaya Castillo OTR [facility] 150 [facility] [place] [place] [address] 04/30/2025 11:00 AM CDT Therapy Visit [facility] [address] [facility] [place] [address] Jason Alvares MD [address] [place] [address] Chaya Castillo OTR [facility] [place] 150 [place] [address] 05/15/2025 12:30 PM CDT Office Visit [address] [address] Marquise Hanley MD [address] [place] [address] 06/08/2025 9:15 AM CDT Office Visit [facility] [address] [phone] Jignesh Mathias MD [address] [place] [address] 760105 11/05/2025 1:45 PM CDT Office Visit [facility] [address] 3rd [place] [address] Gavi Nieto PA-C Dermatology [address] [place] [address] [phone] documented as of this encounter Goals Goal [...] Total Score: 5 08/27/19 22 9:25 AM SUPERVISOR CELL EFFICIENCY documented as of this encounter Care Teams Advertising Internship Relationship Specialty Start Date End Date Rio Jaquez MD [address] [place] [address] 4 [place], [place] 014405 PCP - General Family Practice 12/02/10 07/13/24 Omar Carmona MD [address] [place] [address] [phone] PCP - General Family Medicine 07/14/24 Barry Kilpatrick MD [address] [place] [address] [id number] [place], [place] 594575 Neurology 07/19/14 Michelle Henderson I, RN Nurse Coordinator Neurology 07/19/14 Rio Jaquez MD [address] [place] [address] [address] 4 [place], [place] 513785 Family Practice 10/15/14 Jemima Jaramillo MD medical assisting instructor 11/20/14 Kelley Chin RN [address] [phone] Nurse Coordinator Cardiology 11/04/15 Sydnee Saleem MD 420 [facility] 508 [place], [place] 133315 Cardiology 11/04/15 Karlene Moya MD [address] [place] [address] 088325 Ophthalmology 06/24/17 Wilbert Quintero, OD [address] [place] [address] 531505 Optometry 06/24/17 Rod Gauthier DPM [address] [place] [address] 949615 Plumber And Tinner Primary Podiatric Medicine 06/21/18 Nallely Hogue, RN Registered Nurse 02/20/19 11/23/22 Larisa Vargas, TANIA Specialty Pastrycook Cardiology 04/18/19 03/06/22 Francisco Lott MD 515 [facility] 88 [place] [address] Assigned Rheumatology Provider 05/31/20 12/13/21 Jan Mahmood MD 516 [facility] 2A [place] [address] Gastroenterology 11/05/20 Brandt Quintana MD 1414 [place] [address] Resident 11/05/20 Jan Mahmood MD 516 [facility] 2A [place] [address] Assigned Gastroenterology Provider 12/01/20 Rio Jaquez MD 909 [facility] 4 [place] [address] Assigned PCP 11/17/20 09/30/24 Dom Eason MD 717 [facility] 353 [place] [address] Internal Medicine 12/02/20 Jayla Plaza, RN Specialty Pastrycook Hepatology 01/09/21 02/13/24 Sydnee Saleem MD 6550 [facility] [address] [place] [address] [phone] Assigned Heart and Vascular Provider 02/02/21 07/24/22 Cristian Barragan MD 2945 [place] [address] Assigned Infectious Disease Provider 02/21/21 03/06/22 Dom Eason MD [address] [place] [address] 353 [place] [address] Assigned Nephrology Provider 04/20/21 01/02/22 Jaimie Vernon, TANIA Specialty Pastrycook Cardiology 10/28/21 Ruth Riddle DPM, Podiatry/Foot and Ankle Surgery [address] [address] [address] [address] Assigned Musculoskeletal Provider 11/30/21 09/30/23 Luis Arrington MD [address] [place] [address] 62738 Assigned Neuroscience Provider 11/23/21 01/02/22 Jason Alvares MD [address] [place] [address] 295 [place] [address] Assigned Neuroscience Provider 01/03/22 05/15/22 Marquise Hanley MD [address] [place] [address] 80058 Endocrinology, Diabetes, and Metabolism 03/05/22 Vlad Ramey MD [address] [place] [address] 35601 Cardiovascular Disease 05/07/22 Joesph Crowe MD [address] [place] [address] 45653 Surgery 05/07/22 Luis Arrington MD [address] [place] [address] 33718 Assigned Neuroscience Provider 05/16/22 05/14/23 Michelle Padilla, TANIA Specialty Pastrycook Cardiology 07/03/22 Vlad Ramey MD [address] [place] [address] 57654 Assigned Heart and Vascular Provider 07/25/22 05/28/23 Marquise Hanley MD [address] [place] [address] 93921 Assigned Endocrinology Provider 08/15/22 Dom Eason MD 7 [facility] 353 [place] [address] Assigned Nephrology Provider 11/28/22 02/19/23 Wagner Oliver MD [address] [place] [address] Critical Care 12/15/22 Laura Epperson NP [address] [place] [address] 1932 [place] [address] Assigned Nephrology Provider 02/20/23 08/30/24 Thom Taveras MD [facility] [address], [address] [place] [address] Assigned Cancer Care Provider 02/06/23 08/20/23 Joesph Crowe MD [address] [place] [address] 17956 Surgery 03/17/23 Joesph Crowe MD [address] [place] [address] 61646 Assigned Surgical Provider 04/03/23 09/30/24 Adonay Haq MD [address] [place] [address] 07150 Internal Medicine 06/14/23OctoberDenilson MD 6405 [facility] [address] [place] [address] Assigned Heart and Vascular Provider 05/29/23 11/28/24 Jason Alvares MD [address] [place] [address] 60335 Assigned Neuroscience Provider 05/15/23 11/28/24 Ruth Riddle DPM, Podiatry/Foot and Ankle Surgery [address] [facility] [address] [place], [place] 972777 Assigned Musculoskeletal Provider 10/22/23 Jignesh Mathias MD [address] [place] [address] 41381 Gastroenterology 09/25/24 Adonay Haq MD [address] [place] [address] 78061 Assigned PCP 10/01/24 12/28/24 Omar Carmona MD [address] [place] [address] 156155 Assigned PCP 12/29/24 Jason Alvares MD [address] [place] [address] [phone] Assigned Neuroscience Provider 12/29/24 Jignesh Mathias MD [address] [place] [address] [phone] Assigned Surgical Provider 12/29/24 Ayad Lopez, PhD LP [address] [place] [address] 890315 Assigned Behavioral Health Provider 02/28/25 Gavi Nieto PA-C [address] [place] [address] 150635 Physician Box Folding Machine Operator Dermatology 03/19/25 documented as of this encounter
--- OUTSIDE RECORDS SUMMARY | 2025-03-24 20:26 | XMS_ITS | Encounter Summary ---
Author Organization [facility] Address [address] [place] [address] Care Team Providers Care Hydropulper Operator Name Role Phone Rio Jaquez MD Primary Care Provider + [phone] Barry Kilpatrick MD Unavailable Michelle Henderson RN Unavailable [phone] Rio Jaquez MD Unavailable [phone] Jemima Jaramillo MD Unavailable Unavai Kelley Bautista RN Unavailable [phone] Sydnee Saleem MD Unavailable [phone] Karlene Moya MD Unavailable [phone] Wilbert Quintero OD Unavailable [phone] Rod Gauthier DPM Unavailable [phone] Nallely Hogue RN Unavailable Unavailable Larisa Vargas RN Unavailable Unavailable Rio Jaquez MD Unavailable [phone] Francisco Lott MD Unavailable [phone] Sydnee Saleem MD Unavailable [phone] Greg Ortega MD Unavailable [phone] Jan Mahmood MD Unavailable Brandt Quintana MD Unavailable Jan Mahmood MD Unavailable Rio Jaquez MD Unavailable Dom Eason MD Unavailable [phone] Jayla Plaza RN Unavailable Jayla Plaza RN Unavailable Sydnee Saleem MD Unavailable Phan Coello MD Unavailable Unavailable Cristian Barragan MD Unavailable [phone] Dom Eason MD Unavailable Jaimie Vernon RN Unavailable Unavailable Ruth RiddleM, Podiatry /Foot and Ankle Surgery Unavailable Luis Arrington MD Unavailable Jason Alvares MD Unavailable Marquise Hanley MD Unavailable Vlad Ramey MD Unavailable Joesph Crowe MD Unavailable Luis Arrington MD Unavailable Michelle Padilla RN Unavailable Unavaila ble Vlad Ramey MD Unavailable Marquise Hanley MD Unavailable Dom Eason MD Unavailable Wagner Oliver MD Unavailable [phone] Laura Epperson NP Unavailable Thom Taveras MD Unavailable [phone] Joesph Crowe MD Unavailable [phone] Joesph Crowe MD Unavailable [phone] Adonay Haq MD Unavailable OctoberDenilson MD Unavailable [phone] Jason Alvares MD Unavailable Ruth RiddleM, Podiatry /Foot and Ankle Surgery Unavailable Omar Carmona MD Primary Care Provider Jignesh Mathias MD Unavailable Adonay Haq MD Unavailable [phone] Omar bragg MD Unavailable Jason Alvares MD Unavailable Jignesh Mathias MD Unavailable Ayad Lopez PhD LP Unavailable [phone] Gavi Nieto-Keisha Unavailable [phone] Reason for Visit * Reason Onset Date Comments Clinic Care Coordination - Follow-up 10/07/2020 Appointment 10/08/2020 Encounter Details Date Type Department Care Team (Latest Contact Info) Description 10/07/2020 MyC Medical Advice [facility] [address] [address] Rio Jaquez MD [address] [place] [address] Clinic Care Coordination - Follow-up; Appo... Social History Tobacco Use Types Packs/Day Years Used Date Smoking Tobacco: Every Day Cigarettes 0.5 42.6 Started: 08/09/1982 Smokeless Tobacco: Never Alcohol Use Standard Drinks/Week Comments Yes 0 (1 standard drink = 0.6 oz pur e alcohol) twice weekly PHQ-2 Answer Date Recorded PHQ-2 Score 1 06/03/2020 Comments No Sex and Gender Information Value Date Recorded Sex Assigned at Female 09/12/2020 12:05 PM TEACHER KINDERGARTEN Legal Sex Female 3:26 AM TEACHER KINDERGARTEN Gender Identity Female 09/12/2020 12:05 PM TEACHER KINDER[employer]ARTEN Sexual Orientation Straight 12/19/2021 10 :44 AM CDT Occupation Industry Job Start Date Job End Date on disability for FMS Not on file Not on file Not on file COVID-19 Exposure Response Date Recorded In the last month, have you been in contact with someone who was confirmed or suspected to have Coronavirus / COVID-19? No / Unsure 09/16/2020 7:59 AM TEACHER KINDERGARTEN documented as of this encounter Miscellaneous Notes * Telephone Encounter - Eliana Chacon - 10/08/2020 11:04 AM CST Patient schedule in clinic with Dr Jaquez on 10/21 at 11:30 AM confirmed by patient. HER KINDERGARTEN documented in this encounter Plan of Treatment Upcoming Encounters Date Type Department Care Team (Late st Contact Info) Description 03/26/2025 11:00 AM CDT Therapy Visit [address] [phone] Jason Alvares MD 420 [facility] 295 [place] [address] Chaya Castillo, LETA [address] [address] 03/29/2025 10:30 AM CDT Therapy Visit [facility] Specialty [place] [address] [place] [phone] [place] [address] R[address]RIGUEZ [address] [place] [address] 04/02/2025 11:00 AM CDT Therapy Visit [address] [phone] Jason Alvares MD [address] [place] [address] Chaya Castillo, OTR [facility] [address] [place] [address] 04/11/2025 12:30 PM CDT Office Visit [facility] [address] 4th [place] [phone] Omar Carmona MD [address] [place] [address] 04/12/2025 2:15 PM CDT [facility] 150 [place] [phone] Jason Alvares MD [address] [place] [address] Chaya Castillo OTR [facility] [place] 150 [place] [address] 04/16/2025 11:00 AM CDT Therapy [facility] 150 [facility] [place] [phone] Jason Alvares MD [address] [place] [address] Chaya Castillo OTR [facility] [address] 150 [place] [address] 04/23/2025 11:00 AM CDT Therapy Visit [facility] [place] 150 [facility] [place] [phone] Jason Alvares MD [address] [place] [address] Chaya Castillo OTR [address] [address] 04/30/2025 11:00 AM CDT Therapy Visit [facility] Rehabilitation Services [address] [phone] Jason Alvares MD [address] [place] [address] Chaya Castillo OTR [address] [address] 05/15/2025 12:30 PM CDT Office Visit [address] [phone] Marquise Hanley MD [address] [place] [address] 341905 06/08/2025 9:15 AM CDT Office Visit [facility] Hepatology Clinic [address] [phone] Jignesh Mathias MD [address] [place] [address] 11/05/2025 1:45 PM CDT Office Visit [facility] Dermatology Clinic [address] 3rd [place] [address] Gavi Nieto PA-C Dermatology [address] [place] [address] documented as of this encounter Goals Goal Patient Goal Type Associated Problems Recent Progress Patient-Stated? Author Quit smoking / using tobacco Lifestyle No Rio Jaquez MD Note: 06/25/14 planned quit date documented as of this encounter Visit Diagnoses Diagnosis Essential hypertension, benign documented in this encounter Additional Health Concerns Infection Onset Date Last Indicated Resolved Time MRSA Comment:Added from external infection. 10/23/2020 10/21/2020 Rule Out COVID-19 02/09/2024 02/09/2024 02/09/2024 1:52 AM CDT Assessment Noted Time PHQ-9 Depression Total Score: 12 021 9:43 AM TEACHER KINDERGARTEN documented as of this encounter Care Teams Hydropulper Operator Relationship Specialty Start Date End Date Rio Jaquez MD [address] [place] [address] PCP - General Family Practice 12/02/10 07/13/24 Omar Carmona MD [address] [place] [address] PCP - General Family Medicine 07/14/24 Barry Kilpatrick MD [address] [place] [address] [id number] [place] [address] Neurology 07/19/14 Michelle Henderson I RN Nurse Coordinator Neurology 07/19/14 Rio Jaquez MD [address] [place] [address] Family Practice 10/15/14 Jemima Jaramillo MD gravel inspector 11/20/14 Kelley Chin, TANIA [address] 383135 Nurse Coordinator Cardiology 11/04/15 Sydnee Saleem MD 420 [facility] 508 [place], [place] 159[address] Cardiology 11/04/15 Karlene Moya MD 6 [place], [place] 026735 Ophthalmology 06/24/17 Wilbert Quintero, OD [address] [place] [address] 434675 Optometry 06/24/17 Rod Gauthier DPM [address] [place] [address] [phone] Cigar Packer And Grader Primary Podiatric Medicine 06/21/18 Nallely Hogue, RN Registered Nurse 02/20/19 11/23/22 Larisa Vargas, TANIA Specialty Gluing Machine Operator Electronic Cardiology 04/18/19 03/06/22 Rio Jaquez MD [address] [place] [address] 4 [place], [place] 136365 Assigned PCP 12/28/19 11/16/20 Francisco Lott MD [address] [place] [address] 88 [place] [address] Assigned Rheumatology Provider 05/31/20 12/13/21 Sydnee Saleem MD [address] [place] [address] Assigned Heart and Vascular Provider 05/31/20 10/22/20 Greg Ortega MD [address] [place] [address] Assigned Surgical Provider 06/23/20 12/06/21 Jan Mahmood MD [address] [place] [address] Gastroenterology 11/05/20 Brandt Quintana MD [address] [place] [address] Resident 11/05/20 Jan Mahmood MD [address] [place] [address] Assigned Gastroenterology Provider 12/01/20 Rio Jaquez MD [address] [address] Assigned PCP 11/17/20 09/30/24 Dom Eason MD [address] [place] [address] Internal Medicine 12/02/20 Jayla Plaza, RN Specialty Gluing Machine Operator Electronic Hepatology 01/09/21 02/13/24 Jayla Plaza, RN Specialty Gluing Machine Operator Electronic Hepatology 01/10/21 01/10/21 Sydnee Saleem MD [address] [place] [address] Assigned Heart and Vascular Provider 02/02/21 07/24/22 Phan Coello MD Assigned Neuroscience Provider 02/21/21 11/22/21 Cristian Barragan MD 2945 [place] [address] Assigned Infectious Disease Provider 02/21/21 03/06/22 Dom Eason MD 717 [facility] 353 [place] [address] Assigned Nephrology Provider 04/20/21 01/02/22 Jaimie Vernon, TANIA Specialty Gluing Machine Operator Electronic Cardiology 10/28/21 Ruth Riddle DPM, Podiatry/Foot and Ankle Surgery [address] [facility] 300 [place] [address] Assigned Musculoskeletal Provider 11/30/21 09/30/23 Luis Arrington MD [address] [place] [address] Assigned Neuroscience Provider 11/23/21 01/02/22 Jason Alvares MD 420 [facility] 295 [place] [address] Assigned Neuroscience Provider 01/03/22 05/15/22 Marquise Hanley MD [address] [place] [address] Endocrinology, Diabetes, and Metabolism 03/05/22 Vlad Ramey MD [address] [place] [address] Cardiovascular Disease 05/07/22 Joesph Crowe MD [address] [place] [address] Surgery 05/07/22 Luis Arrington MD [address] [place] [address] Assigned Neuroscience Provider 05/16/22 05/14/23 Michelle Padilla, TANIA Specialty Gluing Machine Operator Electronic Cardiology 07/03/22 Vlad Ramey MD [address] [place] [address] 761785 Assigned Heart and Vascular Provider 07/25/22 05/28/23 Marquise Hanley MD [address] [place] [address] 489805 Assigned Endocrinology Provider 08/15/22 Dom Eason MD 717 [facility] MIC[facility]EL 353 [place], [place] 204744 Assigned Nephrology Provider 11/28/22 02/19/23 Wagner Oliver MD [address] [place] [address] Critical Care 12/15/22 Laura Epperson NP 717 [facility] [address] [place] [address] Assigned Nephrology Provider 02/20/23 08/30/24 Thom Taveras MD [address] [facility] [address] [place] [address] Assigned Cancer Care Provider 02/06/23 08/20/23 Joesph Crowe MD [address] [place] [address] Surgery 03/17/23 Joesph Crwoe MD [address] [place] [address] Assigned Surgical Provider 04/03/23 09/30/24 Adonay Haq MD [address] [place] [address] Internal Medicine 06/14/23OctoberDenilson MD [address] [facility] [address] [place], [place] 707905 Assigned Heart and Vascular Provider 05/29/23 11/28/24 Jason Alvares MD [address] [place] [address] 275425 Assigned Neuroscience Provider 05/15/23 11/28/24 Ruth Riddle, DPM, Podiatry/Foot and Ankle Surgery [address] R[address]IGUEZ [address] [place] [address] 801607 Assigned Musculoskeletal Provider 10/22/23 Jignesh Mathias MD [address] [place] [address] 809665 Gastroenterology 09/25/24 Adonay Haq MD [address] [place] [address] Assigned PCP 10/01/24 12/28/24 Omar Carmona MD [address] [place] [address] [phone] Assigned PCP 12/29/24 Jason Alvares MD [address] [place] [address] 696885 Assigned Neuroscience Provider 12/29/24 Jignesh Mathias MD [address] [place] [address] 659455 Assigned Surgical Provider 12/29/24 Ayad Lopez, PhD LP [address] [place] [place] [address] 028275 Assigned Behavioral Health Provider 02/28/25 Gavi Nieto PA-C [address] [place] [address] 233465 Physician Telecommunications Line Installer Dermatology 03/19/25 documented as of this encounter
--- OUTSIDE RECORDS SUMMARY | 2025-03-24 20:26 | XMS_ITS | Encounter Summary ---
Author Organization [facility] Address [address] [place] [address] Care Team Providers Care Patient Transport Orderly Name Role Phone Barry Kilpatrick MD Unavailable Michelle Henderson RN Unavailable [phone] Rio Jaquez MD Unavailable [phone] Jemima Jaramillo MD Unavailable Unavai Kelley Bautista RN Unavailable [phone] Sydnee Saleem MD Unavailable [phone] Karlene Moya MD Unavailable [phone] Wilbert Quintero OD Unavailable [phone] Rod Gauthier DPM Unavailable Jan Mahmood MD Unavailable [phone] Brandt Quintana MD Unavailable [phone] Jan Mahmood MD Unavailable [phone] Dom Eason MD Unavailable [phone] Jaimie Vernon RN Unavailable Unavailable Marquise Hanley MD Unavailable [phone] Vlad Ramey MD Unavailable [phone] Joesph Crowe MD Unavailable Michelle Padilla RN Unavailable Unavaila ble Marquise Hanley MD Unavailable [phone] Wagner Oliver MD Unavailable [phone] Joesph Crowe MD Unavailable Adonay Haq MD Unavailable [phone] OctoberDenilson MD Unavailable [phone] Jason Alvares MD Unavailable Ruth Riddle DPM, Podiatry /Foot and Ankle Surgery Unavailable Omar Carmona MD Primary Care Provider [phone] Jignesh aMthias MD Unavailable Adonay Haq MD Unavailable [phone] Omar Carmona MD Unavailable Jason Alvares MD Unavailable Jignesh Mathias MD Unavailable Ayad Lopez PhD LP Unavailable [phone] Gavi Nieto-Keisha Unavailable [phone] Encounter Details Date Type Department Care Team (Late st Contact Info) Description 11/03/2024 [facility] Primary [facility] Clinic [address] [address] Omar Carmona MD [address] [place] [address] Social History Tobacco Use Types Packs/Day [...] than three times a week 08/27/2021 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 Rehabilitation [facility] 150 [place] [phone] Jason Alvares MD [address] [place] [address] 295 [place], [place] 531385 Chaya Castillo OTR [facility] 150 [place] [address] 03/29/2025 10:30 AM CDT Therapy Visit [facility] [address] [place] [phone] [place] [address] MIC[address]EL 300 [place] [address] 04/02/2025 11:00 AM CDT [facility] 150 [place] [phone] Jason Alvares MD [address] [place] [address] 868815 Chaya Castillo, OTR [address] [address] 04/11/2025 12:30 PM CDT Office Visit [facility] Primary Care Clinic [address] 4th [place] [phone] Omar Carmona MD [address] [place] [address] 008685 04/12/2025 2:15 PM CDT Therapy Visit [facility] 150 [place] [phone] Jason Alvares MD [address] [place] [address] Chaya Castillo OTR FV [address] [address] 04/16/2025 11:00 AM CDT Therapy Visit [facility] 150 [place] [phone] Jason Alvares MD [address] [place] [address] Chaya Castillo OTR [facility] 150 [place] [address] 04/23/2025 11:00 AM CDT [facility] 150 [place] [phone] Jason Alvares MD [address] [place] [address] Chaya Castillo OTR [facility] 150 [place] [address] 04/30/2025 11:00 AM CDT Therapy Visit [facility] 150 [place] [phone] Jason Alvares MD [address] [place] [address] Chaya Castillo OTMari [facility] 150 [place] [address] 05/15/2025 12:30 PM CDT Office Visit [address] [phone] Marquise Hanley MD [address] [place] [address] 06/08/2025 9:15 AM CDT Office Visit [facility] Hepatology Clinic [address] [phone] Jignesh aMthias MD [address] [place] [address] 11/05/2025 1:45 PM CDT Office Visit [facility] Dermatology Clinic [address] 3rd [place] [phone] Gavi Nieto PA-C Dermatology [address] [place] [address] documented as of this encounter Goals Goal [...] Depression Total Score: 10 024 9:34 AM DRAPERY INSPECTOR documented as of this encounter Care Teams Patient Transport Orderly Relationship Specialty Start Date End Date Omar Carmona MD [address] [place] [address] PCP - General Family Medicine 07/14/24 Barry Kilpatrick MD [address] [place] [address] [id number] [place] [address] Neurology 07/19/14 Michelle Henderson I, RN Nurse Coordinator Neurology 07/19/14 Rio Jaquez MD [address] [place] [address] Family Practice 10/15/14 Jemima Jaramillo MD [address] [place] [address] 18048 microarray operations vice president 11/20/14 Kelley Chin, TANIA [address] [place] [address] Nurse Coordinator Cardiology 11/04/15 Sydnee Saleem MD 420 [facility] 508 [place] [address] Cardiology 11/04/15 Karlene Moya MD [address] [place] [address] 709945 Ophthalmology 06/24/17 Wiblert Quintero OD [address] [place] [address] 068745 Optometry 06/24/17 Rod Gauthier DPM [address] [place] [address] 910145 Pilot Plant Operator Helper Primary Podiatric Medicine 06/21/18 Jan Mahmood MD [address] [place] [address] 307875 Gastroenterology 11/05/20 Brandt Quintana MD [address] [place] [address] Resident 11/05/20 Jan Mahmood MD [address] [place] [address] Assigned Gastroenterology Provider 12/01/20 Dom Eason MD 717 [facility] 353 [place] [address] Internal Medicine 12/02/20 Jaimie Vernon, RN Specialty Chemical Lab Technician Cardiology 10/28/21 Marquise Hanley MD [address] [place] [address] MD Endocrinology, Diabetes, and Metabolism 03/05/22 Vlad Ramey MD [address] [place] [address] Cardiovascular Disease 05/07/22 Joesph Crowe MD [address] [place] [address] 96278 MD Surgery 05/07/22 Michelle Padilla RN Specialty Chemical Lab Technician Cardiology 07/03/22 Marquise Hanley MD [address] [place] [address] Assigned Endocrinology Provider 08/15/22 Wagner Oliver MD [address] [place] [address] Critical Care 12/15/22 Joesph Crowe MD [address] [place] [address] 29497 MD Surgery 03/17/23 Adonay Haq MD [address] [place] [address] 997075 Internal Medicine 06/14/23OctoberDenilson MD [address] [facility] [address] [place] [address] Assigned Heart and Vascular Provider 05/29/23 11/28/24 Jason Alvares MD [address] [place] [address] Assigned Neuroscience Provider 05/15/23 11/28/24 Ruth Riddle, DPM, Podiatry/Foot and Ankle Surgery [address] [place] [address] Assigned Musculoskeletal Provider 10/22/23 Jignesh Mathias MD [address] [place] [address] Gastroenterology 09/25/24 Adonay Haq MD [address] [place] [address] Assigned PCP 10/01/24 12/28/24 Omar Carmona MD [address] [place] [address] 995795 Assigned PCP 12/29/24 Jason Alvares MD [address] [place] [address] 36109 Assigned Neuroscience Provider 12/29/24 Jignesh Mathias MD [address] [place] [address] 039135 Assigned Surgical Provider 12/29/24 Ayad Lopez, PhD LP [address] [place] [address] 351715 Assigned Behavioral Health Provider 02/28/25 Gavi Nieto PA-C 500 [place] [address] Physician Broke Beater Machine Operator Dermatology 03/19/25 documented as of this encounter
--- OUTSIDE RECORDS SUMMARY | 2025-03-24 20:26 | XMS_ITS | Encounter Summary ---
Author Organization [facility] Address [address] [place] [address] Care Team Providers Care Personal Computer Network Analyst Name Role Phone Barry Kilpatrick MD Unavailable Michelle Henderson RN Unavailable [phone] Rio Jaquez MD Unavailable +[phone] Jemima Jaramillo MD Unavailable Unavai Kelley Bautista RN Unavailable +[phone] Sydnee Saleem MD Unavailable [phone] Karlene Moya MD Unavailable +[phone] Wilbert Quintero OD Unavailable +[phone] Rod Gauthier DPM Unavailable Jan Mahmood MD Unavailable +[phone] Brandt Quintana MD Unavailable [phone] Jan Mahmodo MD Unavailable +[phone] Dom Eason MD Unavailable +[phone] Jaimie Vernon RN Unavailable Unavailable Marquise Hanley MD Unavailable +[phone] Vlad Ramey MD Unavailable +[phone] Joesph Crowe MD Unavailable +[phone] Michelle Padilla RN Unavailable Unavaila ble Marquise Hanley MD Unavailable +[phone] Wagner Oliver MD Unavailable [phone] Joesph Crowe MD Unavailable Adonay Haq MD Unavailable OctoberDenilson MD Unavailable +[phone] Jason Alvares MD Unavailable Ruth Riddle DPM, Podiatry /Foot and Ankle Surgery Unavailable Omar Carmona MD Primary Care Provider [phone] Jignesh Mathias MD Unavailable Adonay Haq MD Unavailable [phone] Omar Carmona MD Unavailable Jason Alvares MD Unavailable Jignesh Mathias MD Unavailable Ayad Lopez PhD LP Unavailable [phone] Gavi Nieto-Keisha Unavailable +[phone] Encounter Details Date Type Department Care Team (Late st Contact Info) Description 10/27/2024 [facility] [address] [address] Omar Carmona MD [address] [place] [address] Social History Tobacco Use Types Packs/Day [...] than three times a week 08/27/2021 Attends [employer] Not on file 08/27 Do you [...] Answer Date Recorded PHQ-2 Score 3 07/14/2024 [facility] - [...] Sex Assigned at Female 09/12/2020 12:05 PM 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 Legal Sex Female 3:26 AM 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 Gender Identity Female 09/12/2020 12:05 PM 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 Sexual Orientation Straight 12/19/2021 10 :44 [...] Description 03/26/2025 11:00 AM CDT Therapy Visit [facility] [address] [place] [phone] Jason Alvares MD [address] [place] [address] 295 [place], [place] 524125 Chaya Castillo OTR [facility] [address] [place] [address] 03/29/2025 10:30 AM CDT Therapy Visit [facility] [address] [place] [phone] [place] [address] [place] [address] 04/02/2025 11:00 AM CDT [facility] [address] [place] [phone] Jason Alvares MD [address] [place] [address]876[address] Chaya Castillo, OTR [address] [address] 04/11/2025 12:30 PM CDT Office Visit [facility] [address] 4th [place] [phone] Omar Carmona MD [address] [place] [address] 060825 04/12/2025 2:15 PM CDT Therapy Visit [facility] [address] [place] [phone] Jason Alvares MD [address] [place] [address] Chaya Castillo OTR [facility] [address] [address] 04/16/2025 11:00 AM CDT Therapy Visit [facility] [address] [place] [phone] Jason Alvares MD [address] [place] [address] Chaya [facility]illo [facility] [address] [place] [address] 04/23/2025 11:00 AM CDT [facility] [address] [place] [phone] Jason Alvares MD [address] [place] [address] [facility] [address] [place] [address] 04/30/2025 11:00 AM CDT Therapy Visit [facility] [address] [place] [phone] Jason Alvares MD [address] [place] [address] Chaya Castillo OTMari [facility] [address] [place] [address] 05/15/2025 12:30 PM CDT Office Visit [address] [phone] Marquise Hanley MD [address] [place] [address] 06/08/2025 9:15 AM CDT Office Visit [facility] [address] [phone] Jignesh Mathias MD [address] [place] [address] 11/05/2025 1:45 PM CDT Office Visit [facility] Dermatology [facility] [address] 3rd [place] [phone] Gavi Nieto PA-C Dermatology [address] [place] [address] documented as of this encounter Goals Goal [...] Depression Total Score: 10 024 9:34 AM 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 documented as of this encounter Care Teams Personal Computer Network Analyst Relationship Specialty Start Date End Date Omar Carmona MD [address] [place] [address] PCP - General Family Medicine 07/14/24 Barry Kilpatrick MD [address] [place] [address] [id number] [place] [address] Neurology 07/19/14 Michelle Henderson I, RN Nurse Coordinator Neurology 07/19/14 Rio Jaquez MD [address] [place] [address] Family Practice 10/15/14 Jemima Jaramillo MD [address] [place] [address] director equipment 11/20/14 Kelley Chin, TANIA [address] [place] [address] Nurse Coordinator Cardiology 11/04/15 Sydnee Saleem MD [address] [facility] [address] [place] [address] Cardiology 11/04/15 Karlene Moya MD [address] [place] [address] 726615 Ophthalmology 06/24/17 Wilbert Quintero OD [address] [place] [address] 229865 Optometry 06/24/17 Rod Gauthier DPM [address] [place] [address] [phone] Asset Protection Detective Primary Podiatric Medicine 06/21/18 Jan Mahmood MD [address] [place] [address] 034395 Gastroenterology 11/05/20 Brandt Quintana MD [address] [place] [address] Resident 11/05/20 Jan Mahmood MD [address] [place] [address] Assigned Gastroenterology Provider 12/01/20 Dom Eason MD 717 [facility] 353 [place] [address] Internal Medicine 12/02/20 Jaimie Vernon, RN Specialty Lead Application Architect Cardiology 10/28/21 Marquise Hanley MD [address] [place] [address] MD Endocrinology, Diabetes, and Metabolism 03/05/22 Vlad Ramey MD [address] [place] [address]7966 Cardiovascular Disease 05/07/22 Joesph Crowe MD [address] [place] [address] 25379 MD Surgery 05/07/22 Michelle Padilla RN Specialty Lead Application Architect Cardiology 07/03/22 Marquise Hanley MD [address] [place] [address] 75[address] Assigned Endocrinology Provider 08/15/22 Wagner Oliver MD [address] [place] [address] Critical Care 12/15/22 Joesph Crowe MD [address] [place] [address] 17394 MD Surgery 03/17/23 Adonay Haq MD [address] [place] [address] 928975 Internal Medicine 06/14/23OctoberDenilson MD [address] [facility] [address] [place] 418375 Assigned Heart and Vascular Provider 05/29/23 11/28/24 Jason Alvares MD [address] [place] [address] Assigned Neuroscience Provider 05/15/23 11/28/24 Ruth Riddle, DPM, Podiatry/Foot and Ankle Surgery [address] [place] [address] Assigned Musculoskeletal Provider 10/22/23 Jignesh Mathias MD [address] [place] [address] Gastroenterology 09/25/24 Adonay Hqa MD [address] [place] [address] Assigned PCP 10/01/24 12/28/24 Omar Carmona MD [address] [place] [address] 957905 Assigned PCP 12/29/24 Jason Alvares MD [address] [place] [address] Assigned Neuroscience Provider 12/29/24 Jignesh Mathias MD [address] [place] [address] [phone] Assigned Surgical Provider 12/29/24 Ayad Lopez, PhD LP [address] [place] [address] 296225 Assigned Behavioral Health Provider 02/28/25 Gavi Nieto PA-C [address] [place] [address] Physician Lump Inspector Dermatology 03/19/25 documented as of this encounter
--- OUTSIDE RECORDS SUMMARY | 2025-03-24 20:26 | XMS_ITS | Encounter Summary ---
Author Organization [facility] Address [address] [place] [address] Care Team Providers Care Acid Remover Name Role Phone Barry Kilpatrick MD Unavailable Michelle Henderson RN Unavailable [phone] Rio Jaquez MD Unavailable [phone] Jemima Jaramillo MD Unavailable Unavai Kelley Bautista RN Unavailable [phone] Sydnee Saleem MD Unavailable [phone] Karlene Moya MD Unavailable [phone] Wilbert Quintero OD Unavailable [phone] Rod Gauthier DPM Unavailable [phone] Jan Mahmood MD Unavailable [phone] Brandt Quintana MD Unavailable Jan Mahmood MD Unavailable [phone] Dom Eason MD Unavailable +[phone] Jaimie Vernon RN Unavailable Unavailable Marquise Hanley MD Unavailable +[phone] Vlad Ramey MD Unavailable [phone] Joesph Crowe MD Unavailable [phone] Michelle Padilla RN Unavailable Unavaila ble Marquise Hanley MD Unavailable +[phone] Wagner Oliver MD Unavailable [phone] Joesph Crowe MD Unavailable [phone] Adonay Haq MD Unavailable [facility] MD Unavailable + [phone] Jason Alvares MD Unavailable Ruth Riddle DPM, Podiatry /Foot and Ankle Surgery Unavailable Omar Carmona MD Primary Care Provider [phone] Jignesh Mathias MD Unavailable Adonay Haq MD Unavailable [phone] Omar Carmona MD Unavailable [phone] Jason Alvares MD Unavailable Jignesh Mathias MD Unavailable Ayad Lopez PhD LP Unavailable [phone] Gavi Nieto-C Unavailable [phone] Encounter Details Date Type Department Care Team (Late st Contact Info) Description 10/01/2024 [facility] [address] [address] Marquise Hanley MD [address] [place] [address] Social History Tobacco Use Types Packs/Day [...] than three times a week 08/27/2021 Attends [employer] Not on file 08/27 Do you belong to any clubs o r organizations such as hoahaoism groups, unions, fraternal or athletic groups, or [...] Answer Date Recorded PHQ-2 Score 3 07/14/2024 [facility] ional [facility] - [...] Assigned at Female 09/12/2020 12:05 PM SUPERVISOR ROLLING ROOM Legal Sex Female 3:26 AM SUPERVISOR ROLLING ROOM Gender Identity Female 09/12/2020 12:05 PM SUPERVISOR ROLLING ROOM Sexual Orientation Straight 12/19/2021 10 :44 AM [...] 03/26/2025 11:00 AM CDT Therapy Visit [address] [phone] Jason Alvares MD [address] [place] [address] 295 [place], [place] 47[address]25 Chaya Castillo OTR [facility] 150 [place] [address] 03/29/2025 10:30 AM CDT Therapy Visit [facility] [address] [place] [phone] [place] [address] [place] [address] 04/02/2025 11:00 AM CDT Therapy Visit [facility] [address] [place] [phone] Jason Alvares MD [address] [place] [address] 370275 Chaya Castillo, OTR [address] [address] 04/11/2025 12:30 PM CDT Office Visit [facility] [address] 4th [place] [phone] Omar Carmona MD [address] [place] [address] 410715 04/12/2025 2:15 PM CDT Therapy [facility] [address] [place] [phone] Jason Alvares MD [address] [place] [address] Chaya Castillo, OTR F[facility] [address] [address] 04/16/2025 11:00 AM CDT [facility] [address] [place] [address] Jason Alvares MD [address] [place] [address] Chaya Castillo OTR [facility] [address] [place] [address] 04/23/2025 11:00 AM CDT Therapy Visit [facility] [address] [place] [phone] Jason Alvares MD [address] [place] [address] Chaya Castillo OTR [facility] [address] [place] [address] 04/30/2025 11:00 AM CDT Therapy [facility] [address] [place] [phone] Jason Alvares MD [address] [place] [address] Chaya Castillo [facility]TR [facility] [address] [place] [address] 05/15/2025 12:30 PM CDT Office Visit [address] [address] Marquise Hanley MD [address] [place] [address] 06/08/2025 9:15 AM CDT Office Visit [facility]ology [facility] [address] [phone] Jignesh Mathias MD [address] [place] [address] 11/05/2025 1:45 PM CDT Office Visit [facility] Dermatology Clinic [address] 3rd [place] [phone] Gavi Nieto PA-C Dermatology [address] [place] [address] documented as of this encounter Goals Goal [...] Depression Total Score: 10 024 9:34 AM SUPERVISOR ROLLING ROOM documented as of this encounter Care Teams Acid Remover Relationship Specialty Start Date End Date Omar Carmona MD [address] [place] [address] PCP - General Family Medicine 07/14/24 Barry Kilpatrick MD [address] [place] [address] [id number] [place] [address] Neurology 07/19/14 Michelle Henderson I, RN Nurse Coordinator Neurology 07/19/14 Rio Jaquez MD [address] [place] [address] Family Practice 10/15/14 Jemima Jaramillo MD [address] [place] [address] financial coordinator 11/20/14 Kelley Chin, TANIA [address] [place] [address] Nurse Coordinator Cardiology 11/04/15 Sydnee Saleem MD [address] [place] [address] 508 [place] [address] Cardiology 11/04/15 Karlene Moya MD [address] [place] [address] [phone] Ophthalmology 06/24/17 Wilbert Quintero OD [address] [place] [address] 842175 Optometry 06/24/17 Rod Gauthier DPM [address] [place] [address] [phone] Technical Stenographer Primary Podiatric Medicine 06/21/18 Jan Mahmood MD [address] [place] [address] [phone] MD Gastroenterology 11/05/20 Brandt Quintana MD [address] [place] [address] Resident 11/05/20 Jan Mahmood MD [address] [place] [address] Assigned Gastroenterology Provider 12/01/20 Dom Eason MD 717 [facility] 353 [place] [address] Internal Medicine 12/02/20 Jaimie Vernon, RN Specialty Bronze Chaser Cardiology 10/28/21 Marquise Hanley MD [address] [place] [address] Endocrinology, Diabetes, and Metabolism 03/05/22 Vlad Ramey MD [address] [place] [address] 56701 Cardiovascular Disease 05/07/22 Joesph Crowe MD [address] [place] [address] 51614 MD Surgery 05/07/22 Michelle Padilla RN Specialty Bronze Chaser Cardiology 07/03/22 Marquise Hanley MD [address] [place] [address] Assigned Endocrinology Provider 08/15/22 Wagner Oliver MD [address] [place] [address] Critical Care 12/15/22 Joesph Crowe MD [address] [place] [address] Surgery 03/17/23 Adonay Haq MD [address] [place] [address] Internal Medicine 06/14/23OctoberDenilson MD [address] [facility] [address] [place] [address] Assigned Heart and Vascular Provider 05/29/23 11/28/24 Jason Alvares MD [address] [place] [address] 434255 Assigned Neuroscience Provider 05/15/23 11/28/24 Ruth Riddle DPM, Podiatry/Foot and Ankle Surgery [address] [place] [address] Assigned Musculoskeletal Provider 10/22/23 Jignesh Mathias MD [address] [place] [address] 318605 Gastroenterology 09/25/24 Adonay Haq MD [address] [place] [address] 152325 Assigned PCP 10/01/24 12/28/24 Omar Carmona MD [address] [place] [address] 760705 Assigned PCP 12/29/24 Jason Alvares MD [address] [place] [address] [phone] Assigned Neuroscience Provider 12/29/24 Jignesh Mathias MD [address] [place] [address] 11545 Assigned Surgical Provider 12/29/24 Ayad Lopez, PhD LP [address] [place] [address] 454605 Assigned Behavioral Health Provider 02/28/25 Gavi Nieto PA-C [address] [place] [address] Physician Record Retrieval Specialist Dermatology 03/19/25 documented as of this encounter
--- OUTSIDE RECORDS SUMMARY | 2025-03-24 20:26 | XMS_ITS | Encounter Summary ---
Author Organization [facility] Address [address] [place] [address] 41163 Care Team Providers Care Cable Technician Name Role Phone Rio Jaquez MD Primary Care Provider Barry Kilpatrick MD Unavailable Michelle Henderson RN Unavailable [phone] Rio Jaquez MD Unavailable +[phone] Jemima Jaramillo MD Unavailable Unavai Kelley Bautista RN Unavailable +[phone] Sydnee Saleem MD Unavailable +[phone] Karlene Moya MD Unavailable +[phone] Wilbert Quintero OD Unavailable +[phone] Rod GauthierM Unavailable +[phone] Nallely Hogue RN Unavailable Unavailable Larisa Vargas RN Unavailable Unavailable Jan Mahmood MD Unavailable +[phone] Brandt Quintana MD Unavailable +[phone] Jan Mahmood MD Unavailable +[phone] Rio Jaquez MD Unavailable +[phone] Dom Eason MD Unavailable +[phone] Jayla Plaza RN Unavailable +[phone] Sydnee Saleem MD Unavailable +[phone] Cristian Barragan MD Unavailable +[phone] Dom Eason MD Unavailable + [phone] Jaimie Vernon RN Unavailable Unavailable Ruth Riddle DPM, Podiatry /Foot and Ankle Surgery Unavailable Luis Arrington MD Unavailable +[phone] Jason Alvares MD Unavailable Marquise Hanley MD Unavailable +[phone] Vlad Ramey MD Unavailable +[phone] Joesph Crowe MD Unavailable + [phone] Luis Arrington MD Unavailable +[phone] Michelle Padilla RN Unavailable Unavaila ble Vlad Ramey MD Unavailable +[phone] Marquise Hanley MD Unavailable +[phone] Dom Eason MD Unavailable +[phone] Wagner Oliver MD Unavailable + [phone] Laura Epperson NP Unavailable [phone] Thom Taveras MD Unavailable +[phone] Joesph Crowe MD Unavailable + [phone] Joesph Crowe MD Unavailable + [phone] Adonay Haq MD Unavailable +[phone] OctoberDenilson MD Unavailable + [phone] Jason Alvares MD Unavailable Ruth Riddle DPM, Podiatry /Foot and Ankle Surgery Unavailable Omar Carmona MD Primary Care Provider [phone] Jignesh Mathias MD Unavailable Adonay Haq MD Unavailable +[phone] Omar Carmona MD Unavailable +[phone] Jason Alvares MD Unavailable Jignesh Mathias MD Unavailable Ayad Lopez PhD LP Unavailable +[phone] Gavi Nieto PA-C Unavailable +[phone] Encounter Details Date Type Department Care Team (Late st Contact Info) Description 12/26/2021 MyC Medical Advice [address] [phone] Crystal Castellanos RN Social History Tobacco Use Types Packs/Day [...] than three times a week 08/27/2021 Attends Christianity Services Not on file 08/27 Do you belong to any clubs o r organizations such as adventism groups, unions, fraternal or athletic groups, or [...] Answer Date Recorded PHQ-2 Score 2 08/27/2021 [facility] of Occupat ional Health - Occupational Stress [...] place to sleep or slept in a snf (including now)? No 08/27/2021 Comments No Sex and Gender Information Value Date Recorded Sex Assigned at Female 09/12/2020 12:05 PM CLINICAL OPERATIONS MANAGER Legal Sex Female 3:26 AM CLINICAL OPERATIONS MANAGER Gender Identity Female 09/12/2020 12:05 PM CLINICAL OPERATIONS MANAGER Sexual Orientation Straight 12/19/2021 10 :44 [...] suspected to have Coronavirus/COVID-19? No / Unsure 12/24/2021 8:55 AM CDT documented as of this encounter Plan of Treatment Upcoming Encounters Date Type Department Care Team (Late st Contact Info) Description 03/26/2025 11:00 AM CDT Therapy Visit [address] [phone] Jason Alvares MD [address] [place] [address] 295 [place], [place] [phone] Chaya Castillo OTR [facility] 150 [place], [place] [address] 03/29/2025 10:30 AM CDT Therapy Visit [facility] [address] [facility] [address] [place] [phone] [place] [address] [address] [place] [address] 04/02/2025 11:00 AM CDT Therapy Visit [facility] [address] [place] [phone] Jason Alvares MD [address] [place] [address] Chaya Castillo OTR [facility] [address] [place] [address] 04/11/2025 12:30 PM CDT Office Visit [facility] Primary [facility] Clinic [address] 4th [place] [phone] Omar Carmona MD [address] [place] [address] 04/12/2025 2:15 PM CDT [facility] [address] [place] [phone] Jason Alvares MD [address] [place] [address] Chaya Castillo OTR [facility] 150 [place] [address] 04/16/2025 11:00 AM CDT Therapy Visit [facility] [address] [place] [phone] Jason Alvares MD [address] [place] [address] Chaya Castillo OTR [facility] [address] [place] [address] 04/23/2025 11:00 AM CDT Therapy Visit [facility] [address] [place] [phone] Jason Alvares MD [address] [place] [address] Chaya Castillo OTR [facility] 150 [place] [address] 04/30/2025 11:00 AM CDT Therapy Visit [facility] 150 [place] [phone] Jason Alvares MD [address] [place] [address] Chaya Castillo OTR [facility] 150 [place] [address] 05/15/2025 12:30 PM CDT Office Visit [address] [address] Marquise Hanley MD [address] [place] [address] 06/08/2025 9:15 AM CDT Office Visit [facility] Hepatology Clinic [address] [phone] Jignesh Mathias MD [address] [place] [address] 916445 11/05/2025 1:45 PM CDT Office Visit [facility] Dermatology Clinic [address] 3rd [place] [phone] Gavi Nieto PA-C Dermatology [address] [place] [address] documented as of this encounter Goals Goal [...] Total Score: 5 08/27/19 22 9:25 AM CLINICAL OPERATIONS MANAGER documented as of this encounter Care Teams Cable Technician Relationship Specialty Start Date End Date Rio Jaquez MD [address] [place] [address] 17131 PCP - General Family Practice 12/02/10 07/13/24 Omar Carmona MD [address] [place] [address] PCP - General Family Medicine 07/14/24 Barry Kilpatrick MD [address] [place] [address] [id number] [place] [address] Neurology 07/19/14 Michelle Henderson I, RN Nurse Coordinator Neurology 07/19/14 Rio Jaquez MD [address] [place] [address]13 Family Practice 10/15/14 Jemima Jaramillo MD associate professor of psychology 11/20/14 Kelley Chin, TANIA [facility] [address] [place] [address] Nurse Coordinator Cardiology 11/04/15 Sydnee Saleem MD [address] [place] [address] 508 [place] [address] Cardiology 11/04/15 Karlene Moya MD [address] [place] [address] Ophthalmology 06/24/17 Wilbert Quintero OD [address] [place] [address] 149435 Optometry 06/24/17 Rod Gauthier DPM [address] [place] [address] Personnel Security Assistant Primary Podiatric Medicine 06/21/18 Nallely Hogue, RN Registered Nurse 02/20/19 11/23/22 Larisa Vargas, TANIA Specialty Veterinary Parasitologist Cardiology 04/18/19 03/06/22 Jan Mahmood MD [address] [place] [address] Gastroenterology 11/05/20 Brandt Quintana MD [address] [place] [address] Resident 11/05/20 Jan Mahmood MD [address] [place] [address] Assigned Gastroenterology Provider 12/01/20 Rio Jaquez MD [address] [place] [address] 4 [place] [address] Assigned PCP 11/17/20 09/30/24 Dom Eason MD [address] [place] [address] Internal Medicine 12/02/20 Jayla Plaza RN Specialty Veterinary Parasitologist Hepatology 01/09/21 02/13/24 Sydnee Saleem MD [address] [phone] Assigned Heart and Vascular Provider 02/02/21 07/24/22 Cristian Barragan MD 2945 [place] [address] Assigned Infectious Disease Provider 02/21/21 03/06/22 Dom Eason MD [address] [place] [address] Assigned Nephrology Provider 04/20/21 01/02/22 Jaimie Vernon, TANIA Specialty Veterinary Parasitologist Cardiology 10/28/21 Ruth Riddle DPM, Podiatry/Foot and Ankle Surgery [address] [address] Assigned Musculoskeletal Provider 11/30/21 09/30/23 Luis Arrington MD [address] [place] [address]776 Assigned Neuroscience Provider 11/23/21 01/02/22 Jason Alvares MD [address] [place] [address]1811 Assigned Neuroscience Provider 01/03/22 05/15/22 Marquise Hanley MD [address] [place] [address] Endocrinology, Diabetes, and Metabolism 03/05/22 Vlad Ramey MD [address] [place] [address] 355305 Cardiovascular Disease 05/07/22 Joesph Crowe MD [address] [place] [address] 62343 Surgery 05/07/22 Luis Arrington MD [address] [place] [address] 454995 Assigned Neuroscience Provider 05/16/22 05/14/23 Michelle Padilla RN Specialty Veterinary Parasitologist Cardiology 07/03/22 Vlad Ramey MD [address] [place] [address] 501125 Assigned Heart and Vascular Provider 07/25/22 05/28/23 Marquise Hanley MD [address] [place] [address] 69[address] Assigned Endocrinology Provider 08/15/22 Dom Eason MD [address] [place] [address] Assigned Nephrology Provider 11/28/22 02/19/23 Wagner Oliver MD [address] [place] [address] Critical Care 12/15/22 Laura Epperson, LULU 717 [facility] 1932 [place] [address] Assigned Nephrology Provider 02/20/23 08/30/24 Thom Taveras MD [address] [place] [address] R105 [place] [address] Assigned Cancer Care Provider 02/06/23 08/20/23 Joesph Crowe MD [address] [place] [address] 40868 Surgery 03/17/23 Joesph Crowe MD [address] [place] [address] 71695 Assigned Surgical Provider 04/03/23 09/30/24 Adonay Haq MD [address] [place] [address] 6[address] Internal Medicine 06/14/23OctoberDenilson MD [address] [facility] [address] [place] [address] Assigned Heart and Vascular Provider 05/29/23 11/28/24 Jason Alvares MD 420 [facility] 295 [place] [address] Assigned Neuroscience Provider 05/15/23 11/28/24 Ruth Riddle DPM, Podiatry/Foot and Ankle Surgery [address] [place] [address] Assigned Musculoskeletal Provider 10/22/23 Jignesh Mathias MD [address] [place] [address] 35077 Gastroenterology 09/25/24 Adonay Haq MD [address] [place] [address] 0[address]70 Assigned PCP 10/01/24 12/28/24 Omar Carmona MD [address] [place] [address] 82464 Assigned PCP 12/29/24 Jason Alvares MD [address] [place] [address] 50343 Assigned Neuroscience Provider 12/29/24 Jignesh Mathias MD [address] [place] [address] 64093 Assigned Surgical Provider 12/29/24 Ayad Lopez, PhD LP [address] [place] [address] 484655 Assigned Behavioral Health Provider 02/28/25 Gavi Nieto PA-C [address] [place] [address] Physician Automotive Consultant Dermatology 03/19/25 documented as of this encounter
--- OUTSIDE RECORDS SUMMARY | 2025-03-24 20:26 | XMS_ITS | Encounter Summary ---
Author Organization [facility] Address [address] [place] [address]333 Care Team Providers Care Systems Program Manager Name Role Phone Rio Jaquez MD Primary Care Provider Barry Kilpatrick MD Unavailable Michelle Henderson RN Unavailable [phone] Rio Jaquez MD Unavailable +[phone] Jemima Jaramillo MD Unavailable Unavai Kelley Bautista RN Unavailable +[phone] Sydnee Saleem MD Unavailable +[phone] Karlene Moya MD Unavailable +[phone] Wilbert Quintero OD Unavailable +[phone] Rod GauthierM Unavailable +[phone] Nallely Hogue RN Unavailable Unavailable Larisa Vargas RN Unavailable Unavailable Jan Mahmood MD Unavailable +[phone] Brandt Quintana MD Unavailable +[phone] Jan Mahmood MD Unavailable +[phone] Rio Jaquez MD Unavailable +[phone] Dom Eason MD Unavailable +[phone] Jayla Plaza RN Unavailable +[phone] Sydnee [...] Unavailable +[phone] Dom Eason MD Unavailable +[phone] Wagner Oliver MD Unavailable +[phone] Laura Epperson NP Unavailable +[phone] Thom Taveras MD Unavailable +[phone] Joesph Crowe MD Unavailable +[phone] Joesph Crowe MD Unavailable + [phone] Adonay Haq MD Unavailable +[phone] Denilson Srinivasan MD Unavailable + [phone] Jason Alvares MD Unavailable Ruth Riddle DPM, Podiatry /Foot and Ankle Surgery Unavailable Omar Carmona MD Primary Care Provider +[phone] Jignesh Mathias MD Unavailable Adonay Haq MD Unavailable +[phone] Omar Carmona MD Unavailable +[phone] Jason Alvares MD Unavailable Jignesh Mathias MD Unavailable Ayad Lopez PhD LP Unavailable +[phone] Gavi Nieto PA-C Unavailable +[phone] Encounter Details Date Type Department Care Team [...] Answer Date Recorded PHQ-2 Score 2 08/27/2021 [facility] of Occupat ional Health - Occupational [...] Sex Assigned at Female 09/12/2020 12:05 PM REEL WINDER Legal Sex Female 3:26 AM REEL WINDER Gender Identity Female 09/12/2020 12:05 PM REEL WINDER Sexual Orientation Straight 12/19/2021 10 :44 AM [...] Description 03/26/2025 11:00 AM CDT Therapy Visit [address] [phone] Jason Alvares MD 420 [facility] 295 [place] [address] Chaya Castillo, OTR [place] [address] [address] 03/29/2025 10:30 AM CDT Therapy Visit [facility] [address] [place] [phone] [place] [address]EL [address] [place] [address] 04/02/2025 11:00 AM CDT Therapy Visit [address] [phone] Jason Alvares MD [address] [place] [address] Chaya Castillo, OTR [facility] [address] [place] [address] 04/11/2025 12:30 PM CDT Office Visit [facility] Primary Care Clinic [address] 4th [place] [phone] Omar Carmona MD [address] [place] [address] 04/12/2025 2:15 PM CDT Therapy Visit [facility] [place] [phone] Jason Alvares MD [address] [place] [address] Chaya Castillo OTR [facility] [place] [facility] [address] [place] [address] 04/16/2025 11:00 AM CDT Therapy Visit [facility] [address] [place] [phone] Jason Alvares MD [address] [place] [address] Chaya Castillo OTR [facility] [place] [address] [place] [address] 04/23/2025 11:00 AM CDT Therapy Visit [facility] [address] [facility] [place] [phone] Jason Alvares MD [address] [place] [address] Chaya Castillo, OTR [facility] 150 [place] [address] 04/30/2025 11:00 AM CDT Therapy Visit [facility] 150 [place] [phone] Jason Alvares MD [address] [place] [address] Chaya Castillo OTR [address] [address] 05/15/2025 12:30 PM CDT Office Visit [address] [phone] Marquise Hanley MD [address] [place] [address] 06/08/2025 9:15 AM CDT Office Visit [facility] Hepatology Clinic [address] [phone] Jignesh Mathias MD [address] [place] [address] 934785 11/05/2025 1:45 PM CDT Office Visit [facility] Dermatology Clinic [address] 3rd [place] [phone] Gavi Nieto PA-C Dermatology [address] [place] [address] documented as of this encounter Goals Goal [...] Total Score: 5 08/27/19 22 9:25 AM REEL WINDER documented as of this encounter Care Teams Systems Program Manager Relationship Specialty Start Date End Date Rio Jaquez MD [address] [place] [address] [phone] PCP - General Family Practice 12/02/10 07/13/24 Omar Carmona MD [address] [place] [address] 391565 PCP - General Family Medicine 07/14/24 Barry Kilpatrick MD [address] [place] [address] [id number] [place], [place] [phone] Neurology 07/19/14 Michelle Henderson RN Nurse Coordinator Neurology 07/19/14 Rio Jaquez MD [address] [place] [address] 663845 Family Practice 10/15/14 Jemima Jaramillo MD sand control worker 11/20/14 Kelley Chin, TANIA [address] 796005 Nurse Coordinator Cardiology 11/04/15 Sydnee Saleem MD [address] [place] [address] 508 [place] [address] Cardiology 11/04/15 Karlene Moya MD [address] [place] [address]237 Ophthalmology 06/24/17 Wilbert Quintero, OD [address] [place] [address] 355815 Optometry 06/24/17 Rod Gauthier DPM [address] [place] [address] [phone] Medical Van Driver Primary Podiatric Medicine 06/21/18 Nallely Hogue, RN Registered Nurse 02/20/19 11/23/22 Larisa Vargas, TANIA Specialty Bag Making Machine Tender Cardiology 04/18/19 03/06/22 Jan Mahmood MD [address] [place] [address] 2[address] [place] [address] Gastroenterology 11/05/20 Brandt Quintana MD [address] [place] [address] Resident 11/05/20 Jan Mahmood MD [address] [place] [address] 64882 Assigned Gastroenterology Provider 12/01/20 Rio Jaquez MD [address] [place] [address] [place] [address] Assigned PCP 11/17/20 09/30/24 Dmo Eason MD 717 [facility] 353 [place] [address] Internal Medicine 12/02/20 Jayla Plaza, RN Specialty Bag Making Machine Tender Hepatology 01/09/21 02/13/24 Sydnee Saleem MD 6550 [facility] [address] [place] [address] [phone] Assigned Heart and Vascular Provider 02/02/21 07/24/22 Cristian Barragan MD 2945 [place] [address] Assigned Infectious Disease Provider 02/21/21 03/06/22 Jaimie Vernon, TANIA Specialty Bag Making Machine Tender Cardiology 10/28/21 Ruth Riddle DPM, Podiatry/Foot and Ankle Surgery [address] [facility] 300 [place] [address] Assigned Musculoskeletal Provider 11/30/21 09/30/23 Jason Alvares MD 420 [facility] 295 [place], [place] 999485 Assigned Neuroscience Provider 01/03/22 05/15/22 Marquise Hanley MD [address] [place] [address] 793975 Endocrinology, Diabetes, and Metabolism 03/05/22 Vlad Ramey MD [address] [place] [address] 463745 Cardiovascular Disease 05/07/22 Joesph Crowe MD [address] [place] [address] 77119 Surgery 05/07/22 Luis Arrington MD [address] [place] [address] 20423 Assigned Neuroscience Provider 05/16/22 05/14/23 Michelle Padilla, TANIA Specialty Bag Making Machine Tender Cardiology 07/03/22 Vlad Ramey MD [address] [place] [address] 738865 Assigned Heart and Vascular Provider 07/25/22 05/28/23 Marquise Hanley MD [address] [place] [address] 764435 Assigned Endocrinology Provider 08/15/22 Dom Eason MD 717 [facility] 353 [place], [place] 389714 Assigned Nephrology Provider 11/28/22 02/19/23 Wagner Oliver MD [address] [place] [address] Critical Care 12/15/22 Laura Epperson NP 717 [facility] [address] [place] [address] Assigned Nephrology Provider 02/20/23 08/30/24 Thom Taveras MD [address], R[address] [place], [place] 1224[address] Assigned Cancer Care Provider 02/06/23 08/20/23 Joesph Crowe MD [address] [place] [address] 69197 MD Surgery 03/17/23 Joesph Crowe MD [address] [place] [address] 77898 Assigned Surgical Provider 04/03/23 09/30/24 Adonay Haq MD [address] [place] [address] 952185 Internal Medicine 06/14/23October, Denilson Jackson MD [address] 208835 Assigned Heart and Vascular Provider 05/29/23 11/28/24 Jason Alvares MD [address] [place] [address] 647385 Assigned Neuroscience Provider 05/15/23 11/28/24 Ruth Riddle DPM, Podiatry/Foot and Ankle Surgery [address]32[address] [facility] [address] [place] [address] Assigned Musculoskeletal Provider 10/22/23 Jignesh Mathias MD [address] [place] [address] [phone] Gastroenterology 09/25/24 Adonay Haq MD [address] [place] [address] 899115 Assigned PCP 10/01/24 12/28/24 Omar Carmona MD [address] [place] [address] 55455 Assigned PCP 12/29/24 Jason Alvares MD [address] [place] [address]455 Assigned Neuroscience Provider 12/29/24 Jignesh Mathias MD [address] [place] [address] 55455 Assigned Surgical Provider 12/29/24 Ayad Lopez, PhD LP [address] [place] [address] Assigned Behavioral Health Provider 02/28/25 Gavi Nieto, PA-C [address] [place] [address] [phone] Physician Cold Molding Press Operator Dermatology 03/19/25 documented as of this encounter
--- OUTSIDE RECORDS SUMMARY | 2025-03-24 20:26 | XMS_ITS | Encounter Summary ---
Author Organization [place] Address [address] [place] [address] Care Team Providers Care Tire Fixer Name Role Phone Rio Jaquez MD Primary Care Provider + [phone] Barry Kilpatrick MD Unavailable Michelle Henderson RN Unavailable [phone] Rio Jaquez MD Unavailable +[phone] Jemima Jaramillo MD Unavailable Unavai Kelley Bautista RN Unavailable +[phone] Sydnee Saleem MD Unavailable +[phone] Karlene Moya MD Unavailable +[phone] Wilbert Quintero OD Unavailable +[phone] Rod GauthierM Unavailable +[phone] Nallely Hogue RN Unavailable Unavailable Lairsa Vargas RN Unavailable Unavailable Rio Jaquez MD Unavailable +[phone] Ruth Yarbrough MD Unavailable +[phone] Francisco Lott MD Unavailable +[phone] Frida Grace MD Unavailable +[phone] Sydnee Saleem MD Unavailable +[phone] Greg Ortega MD Unavailable Jan Mahmood MD Unavailable Brandt Quintana MD Unavailable Jan Mahmood MD Unavailable Rio Jaquez MD Unavailable Dom Eason MD Unavailable Jayla Plaza RN Unavailable +[phone] Jayla Plaza RN Unavailable +[phone] Sydnee Saleem MD Unavailable +[phone] Phan Coello MD Unavailable Unavailable Cristian Barragan MD Unavailable +[phone] Dom Eason MD Unavailable Jaimie Vernno RN Unavailable Unavailable Ruth Riddle DPM, Podiatry /Foot and Ankle Surgery Unavailable Luis Arrington MD Unavailable +[phone] Jason Alvares MD Unavailable Marquise Hanley MD Unavailable +[phone] Vlad Ramey MD Unavailable +[phone] Joesph Crowe MD Unavailable +[phone] Luis Arrington MD Unavailable Michelle Padilla RN Unavailable Unavaila ble Vlad Ramey MD Unavailable +[phone] Marquise Hanley MD Unavailable +[phone] Dom Eason MD Unavailable Wagner Oliver MD Unavailable Laura Epperson NP Unavailable +[phone] Thom Taveras MD Unavailable +[phone] Joesph Crowe MD Unavailable +[phone] Joesph Crowe MD Unavailable +[phone] Adonay Haq MD Unavailable +[phone] Denilson Srinivasan MD Unavailable +[phone] Jason Alvares MD Unavailable Ruth Riddle DPM, Podiatry /Foot and Ankle Surgery Unavailable Omar Carmona MD Primary Care Provider [phone] Jignesh Mathias MD Unavailable Adonay Haq MD Unavailable [phone] Omar Carmona MD Unavailable +[phone] Jason Alvares MD Unavailable Jignesh Mathias MD Unavailable Ayad Lopez PhD LP Unavailable +[phone] Gavi Nieto PA-C Unavailable +[phone] Encounter Details Date Type Department Care Team (Late st Contact Info) Description 07/16/2020 [facility] [address] [address] [facility] Social History Tobacco Use Types Packs/Day [...] Assigned at Female 09/12/2020 12:05 PM SUPERVISOR COOLER SERVICE Legal Sex Female 3:26 AM SUPERVISOR COOLER SERVICE Gender Identity Female 09/12/2020 12:05 PM SUPERVISOR COOLER SERVICE Sexual Orientation Straight 12/19/2021 10 :44 AM CDT Occupation Industry Job Start Date Job End Date on disability for FMS Not on file Not on file Not on file COVID-19 Exposure Response Date Recorded In the last month, have you been in contact with someone who was confirmed or suspected to have Coronavirus / COVID-19? No / Unsure 07/02/2020 12:49 PM SUPERVISOR COOLER SERVICE documented as of this encounter Plan of Treatment Upcoming Encounters Date Type Department Care Team (Late st Contact Info) Description 03/26/2025 11:00 AM CDT Therapy Visit [facility] [address] [place] [phone] Jason Alvares MD [address] [place] [phone] Chaya Castillo, OTR [address] [address] 03/29/2025 10:30 AM CDT Therapy Visit [facility] [address] [place] [phone] [place] [address] MICHAEL [address] [place], [place] 67[address] 04/02/2025 11:00 AM CDT Therapy Visit [facility] [address] [place] [phone] Jason Alvares MD [address] [place] [address] 459[address] Chaya Castillo, OTR [address] [address] 04/11/2025 12:30 PM CDT Office Visit [facility] [place] [address] [phone] Omar Carmona MD [address] [place] [address] 04/12/2025 2:15 PM CDT Therapy Visit [facility] [address] [facility] [place] [phone] Jason Alvares MD [address] [place] [address] Chaya Castillo OTR [facility] [address] [place] [address] 04/16/2025 11:00 AM CDT Therapy Visit [facility] [address] [place] [phone] Jason Alvares MD [address] [place] [address] Chaya Castillo OTR [facility] 150 [place] [address] 04/23/2025 11:00 AM CDT Therapy [facility] 150 [facility] [place] [phone] Jason Alvares MD [address] [place] [address] Chaya Castillo OTR [facility] 150 [place] [address] 04/30/2025 11:00 AM CDT Therapy Visit [facility] [address] [place] [phone] Jason Alvares MD 420 [facility] 295 [place] [address] CastilloChaya, [facility] 150 [place] [address] 05/15/2025 12:30 PM CDT Office Visit [address] [phone] Marquise [place] MD [address] [place] [address] 06/08/2025 9:15 AM CDT Office Visit [facility] [address] [phone] Jignesh Mathias MD [address] [place] [address] 980455 11/05/2025 1:45 PM CDT Office Visit [facility] [address] 3rd [place] [address] Gavi Nieto, PANavinC Dermatology [address] [place] [address] documented as of this encounter Goals Goal [...] Noted Time PHQ-9 Depression Total Score: 11 07/16/2 020 9:33 AM CDT documented as of this encounter Care Teams Tire Fixer Relationship Specialty Start Date End Date Rio Jaquez MD [address] [place] [address] PCP - General Family Practice 12/02/10 07/13/24 Omar Carmona MD [address] [place] [address] 27900 PCP - General Family Medicine 07/14/24 Barry Kilpatrick MD [address] [place] [address] [id number] [place], [place] 690895 Neurology 07/19/14 Michelle Henderson RN Nurse Coordinator Neurology 07/19/14 Rio Jaquez MD [address] [place] [address] 24919 Family Practice 10/15/14 Jemima Jaramillo MD statistical methods professor 11/20/14 Kelley Chin, TANIA [address] [phone] Nurse Coordinator Cardiology 11/04/15 Sydnee Saleem MD 420 [facility] 508 [place], [place] 563205 Cardiology 11/04/15 Karlene Moya MD [address] [place] [address] 623395 Ophthalmology 06/24/17 Wilbert Quintero, OD [address] [place] [address] Optometry 06/24/17 Rod Gauthier DPM [address] [place] [address] Speed Winder Primary Podiatric Medicine 06/21/18 Nallely Hogue, RN Registered Nurse 02/20/19 11/23/22 Larisa Vargas, TANIA Specialty Call Center Coordinator Cardiology 04/18/19 03/06/22 Rio Jaquez MD [address] [place] [address] Assigned PCP 12/28/19 11/16/20 Ruth Yarbrough MD [address] [place] [address]87 Assigned Endocrinology Provider 05/31/20 09/28/20 Francisco Lott MD [address] [place] [address] Assigned Rheumatology Provider 05/31/20 12/13/21 Frida Grace MD [address] [place] [address] [address] [place] [address] Assigned Pediatric Specialist Provider 05/31/20 09/08/20 Sydnee Saleem MD [address] [address] Assigned Heart and Vascular Provider 05/31/20 10/22/20 Greg Ortega MD [address] [place] [address] Assigned Surgical Provider 06/23/20 12/06/21 Jan Mahmood MD [address] [place] [address] Gastroenterology 11/05/20 Brandt Quintana MD [address] [place] [address] Resident 11/05/20 Jan Mahmood MD [address] [place] [address] 481[address] Assigned Gastroenterology Provider 12/01/20 Rio Jaquez MD [address] [place] [address] 4 [place] [address] Assigned PCP 11/17/20 09/30/24 Dom Eason MD [address] [place] [address] 353 [place] [address] Internal Medicine 12/02/20 Jayla Plaza, RN Specialty Call Center Coordinator Hepatology 01/09/21 02/13/24 Jayla Plaza, RN Specialty Call Center Coordinator Hepatology 01/10/21 01/10/21 Sydnee Saleem MD [address] [place] [address] Assigned Heart and Vascular Provider 02/02/21 07/24/22 Phan Coello MD Assigned Neuroscience Provider 02/21/21 11/22/21 Cristian Barragan MD 2945 [place] [address] Assigned Infectious Disease Provider 02/21/21 03/06/22 Dom Eason MD 717 [facility] 353 [place] [address] Assigned Nephrology Provider 04/20/21 01/02/22 Jaimie Vernon, TANIA Specialty Call Center Coordinator Cardiology 10/28/21 Ruth Riddle DPM, Podiatry/Foot and Ankle Surgery [address] [facility] [address] [place] [address] Assigned Musculoskeletal Provider 11/30/21 09/30/23 Luis Arrington MD [address] [place] [address] Assigned Neuroscience Provider 11/23/21 01/02/22 Jason Alvares MD 420 [facility] 295 [place] [address] Assigned Neuroscience Provider 01/03/22 05/15/22 Marquise [place] MD [address] [place] [address] Endocrinology, Diabetes, and Metabolism 03/05/22 Vlad Ramey MD [address] [place] [address] 39572 Cardiovascular Disease 05/07/22 Joesph Crowe MD [address] [place] [address] 68910 Surgery 05/07/22 Luis Arrington MD [address] [place] [address] 60779 Assigned Neuroscience Provider 05/16/22 05/14/23 Michelle Padilla, TANIA Specialty Call Center Coordinator Cardiology 07/03/22 Vald Ramey MD [address] [place] [address]852 Assigned Heart and Vascular Provider 07/25/22 05/28/23 Marquise [place] MD [address] [place] [address]93 Assigned Endocrinology Provider 08/15/22 Dom Eason MD 717 [facility] MICHAEL [address] [place] [address] Assigned Nephrology Provider 11/28/22 02/19/23 Wagner Oliver MD [address] [place] [address] Critical Care 12/15/22 Laura Epperson NP 717 [facility] [address] [place] [address] Assigned Nephrology Provider 02/20/23 08/30/24 Thom Taveras MD [address] [facility] [address] [place] [address] Assigned Cancer Care Provider 02/06/23 08/20/23 Joesph Crowe MD [address] [place] [address] 52032 Surgery 03/17/23 Joesph Crowe MD [address] [place] [address] 16602 Assigned Surgical Provider 04/03/23 09/30/24 Adonay Haq MD [address] [place] [address]71 Internal Medicine 06/14/23OctoberDenilson MD [address] [facility] [address] [place], [place] 255625 Assigned Heart and Vascular Provider 05/29/23 11/28/24 Jason Alvares MD [address] [place] [address] 971755 Assigned Neuroscience Provider 05/15/23 11/28/24 Ruth Riddle DPM, Podiatry/Foot and Ankle Surgery [address] RODRIGUEZ [address] [place] [address] 032977 Assigned Musculoskeletal Provider 10/22/23 Jignesh Mathias MD [address] [place] [address] 053915 Gastroenterology 09/25/24 Adonay Haq MD [address] [place] [address] 80262 Assigned PCP 10/01/24 12/28/24 Omar Carmona MD [address] [place] [address] Assigned PCP 12/29/24 Jason Alvares MD [address] [place] [address] 540685 Assigned Neuroscience Provider 12/29/24 Jignesh Mathias MD [address] [place] [address] 194455 Assigned Surgical Provider 12/29/24 Ayad Lopez, PhD LP [address] [place] [address] 914445 Assigned Behavioral Health Provider 02/28/25 Gavi Nieto PA-C [address] [place] [address] 388075 Physician Mobile Home Technician Dermatology 03/19/25 documented as of this encounter
--- OUTSIDE RECORDS SUMMARY | 2025-03-24 20:26 | XMS_ITS | Encounter Summary ---
Author Organization [place] Address [address] [place] [address] Care Team Providers Care Car Repairer Name Role Phone Barry Kilpatrick MD Unavailable Michelle Henderson RN Unavailable [phone] Rio Jaquez MD Unavailable +[phone] Jemima Jaramillo MD Unavailable Unavai Kelley Bautista RN Unavailable +[phone] Sydnee Saleem MD Unavailable [phone] Karlene Moya MD Unavailable +[phone] Wilbert Quintero OD Unavailable +[phone] Rod Gauthier DPM Unavailable [phone] Jan Mahmood MD Unavailable +[phone] Brandt Quintana MD Unavailable Jan Mahmood MD Unavailable [phone] Dom Eason MD Unavailable +[phone] Jaimie Vernon RN Unavailable Unavailable Marquise [place] MD Unavailable +[phone] Vlad Ramey MD Unavailable +[phone] Joesph Crowe MD Unavailable Michelle Padilla RN Unavailable Unavaila ble Marquise [place] MD Unavailable +[phone] Wagner Oliver MD Unavailable +[phone] Joesph Crowe MD Unavailable +[phone] Adonay Haq MD Unavailable [phone] Ruth RiddleM, Podiatry /Foot and Ankle Surgery Unavailable Omar Carmona MD Primary Care Provider [phone] Jignesh Mathias MD Unavailable Adonay Haq MD Unavailable [phone] Omar Carmona MD Unavailable +[phone] Jason Alvares MD Unavailable Jignesh Mathias MD Unavailable Ayad Lopez PhD LP Unavailable +[phone] Gavi Nieto PA-C Unavailable +[phone] Encounter Details Date Type Department Care Team (Late st Contact Info) Description 12/18/2024 [facility] [address] [address] Lizbeth Lopes Social History Tobacco [...] any clubs o r organizations such as sabianism groups, unions, fraternal or athletic groups, or [...] Answer Date Recorded PHQ-2 Score 3 12/04/2024 [facility] [...] an abandoned building, in an overnight senior care, or couch-surfing.) Yes 07/12/2023 Are you worried [...] Sex Assigned at Female 09/12/2020 12:05 PM QUALITY CONTROL ASSOCIATE Legal Sex Female 3:26 AM QUALITY CONTROL ASSOCIATE Gender Identity Female 09/12/2020 12:05 PM QUALITY CONTROL ASSOCIATE Sexual Orientation Straight 12/19/2021 10 :44 AM [...] Description 03/26/2025 11:00 AM CDT Therapy Visit [address] [address] Jason Alvares MD [address] [place] [address] 295 [place], [place] 583745 Chaya Castillo OTR [address] [address] 03/29/2025 10:30 AM CDT Therapy Visit [facility] [place] [address] [place] [phone] [place] [address] [address] [place], [place] [phone] 04/02/2025 11:00 AM CDT Therapy Visit [facility] [address] [facility] [place] [phone] Jason Alvares MD [address] [place] [address] Chaya Castillo OTR [facility] 150 [place] [address] 04/11/2025 12:30 PM CDT Office [facility] [address] 4th [place] [phone] Omar Carmona MD [address] [place] [address] 04/12/2025 2:15 PM CDT Therapy [facility] [address] [place] [address] Jason Alvares MD [address] [place] [address] 312335 Chaya Castillo OTR [facility] 150 [place] [address] 04/16/2025 11:00 AM CDT Therapy Visit [facility] 150 [place] [address] Jason Alvares MD [address] [place] [address] 656305 Chaya Castillo OTR [facility] 150 [place] [address] 04/23/2025 11:00 AM CDT Therapy [facility] [address] [place] [phone] Jason Alvares MD [address] [place] [address] Chaya Castillo, OTR [facility] 150 [place] [address] 04/30/2025 11:00 AM CDT Therapy Visit [facility] [address] [place] [phone] Jason Alvares MD [address] [place] [address] Chaya Castillo OTMari [facility] 150 [place] [address] 05/15/2025 12:30 PM CDT Office Visit [address] [phone] Marquise [place] MD [address] [place] [address] 06/08/2025 9:15 AM CDT Office Visit [facility] [address] [phone] Jignesh Mathias MD [address] [place] [address] 694445 11/05/2025 1:45 PM CDT Office Visit [facility] [address] 3rd [place] [address] Gavi Nieto PA-C Dermatology [address] [place] [address] [phone] documented as of this encounter Goals Goal [...] documented as of this encounter Care Teams Car Repairer Relationship Specialty Start Date End Date Omar Carmona MD [address] [place] [address] PCP - General Family Medicine 07/14/24 Barry Kilpatrick MD [address] [place] [address] GU1424OA [place], [place] 806705 Neurology 07/19/14 Michelle Henderson RN Nurse Coordinator Neurology 07/19/14 Rio Jaquez MD [address] [place] [address] Family Practice 10/15/14 Jemima Jaramillo MD [address] [place] [address] 46645 sales service representative 11/20/14 Kelley Chin, TANIA [address] 659905 Nurse Coordinator Cardiology 11/04/15 Sydnee Saleem MD [address] [place] [address] 508 [place], [place] 397695 Cardiology 11/04/15 Karlene Moya MD [address] [place] [address] 273895 Ophthalmology 06/24/17 Wilbert Quintero OD [address] [place] [address] 551605 Optometry 06/24/17 Rod Gauthier DPM [address] [place] [address] 658825 Funeral Home Director Primary Podiatric Medicine 06/21/18 Jan Mahmood MD [address] [place] [address] 956395 Gastroenterology 11/05/20 Brandt Quintana MD [address] [place] [address] Resident 11/05/20 Jan Mahmood MD [address] [place] [address]61 Assigned Gastroenterology Provider 12/01/20 Dom Eason MD [address] [place] [address]94 Internal Medicine 12/02/20 Jaimie Vernon, RN Specialty Netting Inspector Cardiology 10/28/21 Marquise [place] MD [address] [place] [address] 730775 Endocrinology, Diabetes, and Metabolism 03/05/22 Vlad Ramey MD [address] [place] [address] 15103 Cardiovascular Disease 05/07/22 Joesph Crowe MD [address] [place] [address] 15017 Surgery 05/07/22 Michelle Padilla, RN Specialty Netting Inspector Cardiology 07/03/22 Marquise [place] MD [address] [place] [address] 98180 Assigned Endocrinology Provider 08/15/22 Wagner Oliver MD [address] [place] [address] Critical Care 12/15/22 Joesph Crowe MD [address] [place] [address] 48472 Surgery 03/17/23 Adonay Haq MD [address] [place] [address] Internal Medicine 06/14/23 Ruth Riddle DPM, Podiatry/Foot and Ankle Surgery [address] [place] [address] Assigned Musculoskeletal Provider 10/22/23 Jignesh Mathias MD [address] [place] [address] 64762 Gastroenterology 09/25/24 Adonay Haq MD [address] [place] [address] 984165 Assigned PCP 10/01/24 12/28/24 Omar Carmona MD [address] [place] [address] 685795 Assigned PCP 12/29/24 Jason Alvares MD [address] [place] [address] 058335 Assigned Neuroscience Provider 12/29/24 Jignesh Mathias MD [address] [place] [address] 799435 Assigned Surgical Provider 12/29/24 Ayad Lopez, PhD LP [address] [place] [address] 656605 Assigned Behavioral Health Provider 02/28/25 Gavi Nieto PANavinC [address] [place] [address] 814005 Physician Signals Collector/Analyst Dermatology 03/19/25 documented as of this encounter
--- OUTSIDE RECORDS SUMMARY | 2025-03-24 20:26 | XMS_ITS | Encounter Summary ---
Author Organization [facility] Address [address] [place] [address] Care Team Providers Care Water Mangle Tender Name Role Phone Rio Jaquez MD Primary Care Provider Barry Kilpatrick MD Unavailable Michelle Henderson RN Unavailable [phone] Rio Jaquez MD Unavailable +[phone] Jemima Jaramillo MD Unavailable Unavai Kelley Bautista RN Unavailable +[phone] Sydnee Saleem MD Unavailable +[phone] Karlene Moya MD Unavailable +[phone] Wilbert Quintero OD Unavailable +[phone] Rod GauthierM Unavailable +[phone] Nallely Hogue RN Unavailable Unavailable Larisa Vargas RN Unavailable Unavailable Jan Mahmood MD Unavailable +[phone] Brandt Quintana MD Unavailable +[phone] Jan Mahmood MD Unavailable +[phone] Rio Jaquez MD Unavailable +[phone] Dom Eason MD Unavailable +[phone] Jayla Plaza RN Unavailable +[phone] Sydnee Slaeem MD Unavailable Cristian Barragan MD Unavailable Jaimie Vernon RN Unavailable Unavailable Ruth Riddle DPM, Podiatry /Foot and Ankle Surgery Unavailable Jason Alvares MD Unavailable Marquise Hanley MD Unavailable +[phone] Vlad Ramey MD Unavailable +[phone] Joesph Crowe MD Unavailable + [phone] Luis Arrington MD Unavailable +[phone] Michelle Padilla RN Unavailable Unavaila ble Vlad Ramey MD Unavailable +[phone] Marquise aHnley MD Unavailable +[phone] Dmo Eason MD Unavailable +[phone] Wagner Oliver MD Unavailable +[phone] Laura Epperson NP Unavailable +[phone] Thom Taveras MD Unavailable +[phone] Joesph Crowe MD Unavailable +[phone] Joesph Crowe MD Unavailable + [phone] Adonay Haq MD Unavailable +[phone] Denilson Srinivasan MD Unavailable + [phone] Jason Alvares MD Unavailable Ruth Riddle DPM, Podiatry /Foot and Ankle Surgery Unavailable Omar Carmona MD Primary Care Provider [phone] Jignesh Mathias MD Unavailable Adonay Haq MD Unavailable +[phone] Omar Carmona MD Unavailable +[phone] Jason Alvares MD Unavailable Jignesh Mathias MD Unavailable Ayad Lopez PhD LP Unavailable +[phone] Gavi Nieto PA-C Unavailable +[phone] Encounter Details Date Type Department Care Team (Late st Contact Info) Description 01/06/[address] [facility]rology [facility] [address] [address] Alaina Moreland CMA Social History Tobacco Use Types Packs/Day Years [...] than three times a week 08/27/2021 Attends [employer] Not on file 08/27 Do you belong to any clubs o r organizations such as rastafari groups, unions, fraternal or athletic groups, or [...] Answer Date Recorded PHQ-2 Score 2 08/27/2021 [facility]at [facility] - Occupational Stress Questionnaire Answer Date [...] place to sleep or slept in a long-term (including now)? No 08/27/2021 Comments No Sex and Gender Information Value Date Recorded Sex Assigned at Female 09/12/2020 12:05 PM GROUP HOME WORKER Legal Sex Female 3:26 AM GROUP HOME WORKER Gender Identity Female 09/12/2020 12:05 PM GROUP HOME WORKER Sexual Orientation Straight 12/19/2021 10 :44 AM [...] suspected to have Coronavirus/COVID-19? No / Unsure 01/08/2022 8:40 AM CDT documented as of this encounter Plan of Treatment Upcoming Encounters Date Type Department Care Team (Late st Contact Info) Description 03/26/2025 11:00 AM CDT Therapy Visit [address] [phone] Jason Alvares MD [address] [facility] 295 [place], [place] 198185 Chaya Castillo, LETA [address] [address] 03/29/2025 10:30 AM CDT Therapy Visit [facility] [address] [place] [address] [place] [address] MICHAEL [address] [place], [place] [phone] 04/02/2025 11:00 AM CDT Therapy Visit [address] [place] [address] Jason Alvares MD [address] [place] [address] Chaya Castillo [facility] [address] [place] [address] 04/11/2025 12:30 PM CDT Office Visit [facility] [address] 4th [place] [phone] Omar Carmona MD [address] [place] [address] 734945 04/12/2025 2:15 PM CDT Therapy Visit [facility] 150 [place] [phone] Jason Alvares MD [address] [place] [address] Chaya Castillo [facility] 150 [place] [address] 04/16/2025 11:00 AM CDT [facility] 150 [place] [address] Jason Alvares MD [address] [place] [address] Chaya Castillo OTR [facility] 150 [place] [address] 04/23/2025 11:00 AM CDT Therapy [facility] [address] [place] [phone] Jason Alvares MD [address] [place] [address] 636345 Chaya Castillo OTR [address] [address] 04/30/2025 11:00 AM CDT Therapy Visit [facility] [address] [phone] Jason Alvares MD [address] [place] [address] Chaya Castillo OTR [address] [address] 05/15/2025 12:30 PM CDT Office Visit [address] [phone] Marquise Hanley MD [address] [place] [address] 570375 06/08/2025 9:15 AM CDT Office Visit [facility] Hepatology Clinic [address] [phone] Jignesh Mathias MD [address] [place] [address] 11/05/2025 1:45 PM CDT Office Visit [facility] Dermatology Clinic [address] 3rd [place] [address] Gavi Nieto PA-C Dermatology [address] [place] [address] documented as of this encounter Goals Goal [...] Total Score: 5 08/27/19 22 9:25 AM GROUP HOME WORKER documented as of this encounter Care Teams Water Mangle Tender Relationship Specialty Start Date End Date Rio Jaquez MD [address] [place] [address] PCP - General Family Practice 12/02/10 07/13/24 Omar Carmona MD [address] [place] [address] PCP - General Family Medicine 07/14/24 Barry Kilpatrick MD [address] [place] [address] [id number] [place] [address] Neurology 07/19/14 Michelle Henderson RN Nurse Coordinator Neurology 07/19/14 Rio Jaquez MD [address] [place] [address] Family Practice 10/15/14 Jemima Jaramillo MD tennis camp instructor 11/20/14 Kelley Chin, TANIA [address] [phone] Nurse Coordinator Cardiology 11/04/15 Sydnee Saleem MD [address] [facility] 508 [place], [place] 0[address] Cardiology 11/04/15 Karlene Moya MD [address] [place] [address] [phone] Ophthalmology 06/24/17 Wilbert Quintero, OD [address] [place] [address] 873135 Optometry 06/24/17 Rod Gauthier DPM [address] [place] [address] [phone] Director Of People Primary Podiatric Medicine 06/21/18 Nallely Hogue, RN Registered Nurse 02/20/19 11/23/22 Larisa Vargas, TANIA Specialty Roadmaster Cardiology 04/18/19 03/06/22 Jan Mahmood MD [address] [place] [address] 2A [place], [place] 577695 Gastroenterology 11/05/20 Brandt Quintana MD [address] [place] [address] Resident 11/05/20 Jan Mahmood MD [address] [place] [address] Assigned Gastroenterology Provider 12/01/20 Rio Jaquez MD [address] [place] [address] 4 [place], [place] [phone] Assigned PCP 11/17/20 09/30/24 Dom Eason MD [address] [place] [address] 353 [place] [address] Internal Medicine 12/02/20 Jayla Plaza, RN Specialty Roadmaster Hepatology 01/09/21 02/13/24 Sydnee Saleem MD 6550 [facility] [address] [place] [address] Assigned Heart and Vascular Provider 02/02/21 07/24/22 Cristian Barragan MD 2945 [place], [place] [phone] Assigned Infectious Disease Provider 02/21/21 03/06/22 Jaimie Vernon, TANIA Specialty Roadmaster Cardiology 10/28/21 Ruth Riddle DPM, Podiatry/Foot and Ankle Surgery 14988 [facility] 300 [place] [address] Assigned Musculoskeletal Provider 11/30/21 09/30/23 Jason Alvares MD [address] [place] [address] 295 [place] [address] Assigned Neuroscience Provider 01/03/22 05/15/22 Marquise Hanley MD [address] [place] [address] Endocrinology, Diabetes, and Metabolism 03/05/22 Vlad Ramey MD [address] [place] [address]362 Cardiovascular Disease 05/07/22 Joesph Crowe MD [address] [place] [address] Surgery 05/07/22 Luis Arrington MD [address] [place] [address] 74771 Assigned Neuroscience Provider 05/16/22 05/14/23 Michelle Padilla RN Specialty Roadmaster Cardiology 07/03/22 Vlad Ramey MD [address] [place] [address]77 Assigned Heart and Vascular Provider 07/25/22 05/28/23 Marquise Hanley MD [address] [place] [address] Assigned Endocrinology Provider 08/15/22 Dom Eason MD 7 [facility] 353 [place] [address] Assigned Nephrology Provider 11/28/22 02/19/23 Wagner Oliver MD [address] [place] [address] Critical Care 12/15/22 Laura Epperson NP [address] [place] [address] 1932 [place] [address] Assigned Nephrology Provider 02/20/23 08/30/24 Thom Taveras MD [address], [address] [place] [address] Assigned Cancer Care Provider 02/06/23 08/20/23 Joesph Crowe MD [address] [place] [address] Surgery 03/17/23 Joesph Crowe MD [address] [place] [address] 93368 Assigned Surgical Provider 04/03/23 09/30/24 Adonay Haq MD [address] [place] [address] 76835 Internal Medicine 06/14/23OctoberDenilson MD [address] [facility] [address] [place] [address] Assigned Heart and Vascular Provider 05/29/23 11/28/24 Jason Alvares MD [address] [place] [address] [facility] 295 [place] [address] Assigned Neuroscience Provider 05/15/23 11/28/24 Ruth Riddle DPM, Podiatry/Foot and Ankle Surgery [address] 300 [place], [place] 444687 Assigned Musculoskeletal Provider 10/22/23 Jignesh Mathias MD 909 [place] [address] Gastroenterology 09/25/24 Adonay Haq MD [address] [place] [address] 794875 Assigned PCP 10/01/24 12/28/24 Omar Carmona MD [address] [place] [address] [id number] Assigned PCP 12/29/24 Jason Alvares MD [address] [place] [address] 950195 Assigned Neuroscience Provider 12/29/24 Jignesh Mathias MD [address] [place] [address] 266005 Assigned Surgical Provider 12/29/24 Ayad Lopez, PhD LP [address] [place] [address] [phone] Assigned Behavioral Health Provider 02/28/25 Gavi Nieto PA-C [address] [place] [address] [phone] Physician Military Technology Specialist Dermatology 03/19/25 documented as of this encounter
--- OUTSIDE RECORDS SUMMARY | 2025-03-24 20:26 | XMS_ITS | Encounter Summary ---
Author Organization [facility] Address [address] [place] [address] Care Team Providers Care Process Automation Engineer Name Role Phone Barry Kilpatrick MD Unavailable Michelle Henderson RN Unavailable [phone] Rio Jaquez MD Unavailable +[phone] Jemima Jaramillo MD Unavailable Unavai Kelley Bautista RN Unavailable +[phone] Sydnee Saleem MD Unavailable +[phone] Karlene Moya MD Unavailable [phone] Wilbert Quintero OD Unavailable +[phone] Rod Gauthier DPM Unavailable Jan Mahmood MD Unavailable +[phone] Brandt Quintana MD Unavailable +[phone] Jan Mahmood MD Unavailable +[phone] Rio Jaquez MD Unavailable +[phone] Dom Eason MD Unavailable Jaimie Vernon RN Unavailable Unavailable Marquise Hanley MD Unavailable +[phone] Vlad Ramey MD Unavailable +[phone] Joesph Crowe MD Unavailable +[phone] Michelle Padilla RN Unavailable Unavaila ble aMrquise Hanley MD Unavailable +[phone] Wagner Oliver MD Unavailable + [phone] Joesph Crowe MD Unavailable +[phone] Joesph Crowe MD Unavailable +[phone] Adonay Haq MD Unavailable [phone] OctoberDenilson MD Unavailable +[phone] Jason Alvares MD Unavailable Ruth Riddle DPM, Podiatry /Foot and Ankle Surgery Unavailable Omar Carmona MD Primary Care Provider [phone] Jignesh Mathias MD Unavailable Adonay Haq MD Unavailable +[phone] Omar Carmona MD Unavailable [phone] Jason Alvares MD Unavailable Jignesh Mathias MD Unavailable Ayad Lopez PhD LP Unavailable +[phone] Gavi Nieto PA-C Unavailable +[phone] Encounter Details Date Type Department Care Team (Late st Contact Info) Description 09/02/2024 [facility] [address] [place] [address] Lizbeth Lopes Social History Tobacco [...] any clubs o r organizations such as christian groups, unions, fraternal or athletic groups, or [...] Answer Date Recorded PHQ-2 Score 3 07/14/2024 [facility] of Occupat ional [...] Sex Assigned at Female 09/12/2020 12:05 PM GAS OPERATIONS ANALYST Legal Sex Female 3:26 AM GAS OPERATIONS ANALYST Gender Identity Female 09/12/2020 12:05 PM GAS OPERATIONS ANALYST Sexual Orientation Straight 12/19/2021 10 :44 AM [...] Description 03/26/2025 11:00 AM CDT Therapy Visit [facility] 150 [place] [phone] Jason Alvares MD [address] [place] [address] 295 [place], [place] 150575 Chaya Castillo OTR [facility] 150 [place] [address] 03/29/2025 10:30 AM CDT Therapy Visit [facility] [address] [place] [phone] [place] [address] 300 [place] [address] 04/02/2025 11:00 AM CDT Therapy Visit [facility] 150 [place] [phone] Jason Alvares MD [address] [place] [address] 385155 Chaya Castillo OTR [address] [address] 04/11/2025 12:30 PM CDT Office Visit [facility] Clinic [address] 4th [place] [phone] Omar Carmona MD [address] [place] [address] 462735 04/12/2025 2:15 PM CDT Therapy Visit [facility] 150 [place] [phone] Jason Alvares MD [address] [place] [address] Chaya Castillo OTR [facility] [address] 524307 04/16/2025 11:00 AM CDT Therapy Visit [facility] 150 [place] [phone] Jason Alvares MD [address] [place] [address] [facility] 150 [place] [address] 04/23/2025 11:00 AM CDT Therapy Visit [facility] 150 [place] [phone] Jason Alvares MD [address] [place] [address] Chaya Castillo OTR [facility] 150 [place] [address] 04/30/2025 11:00 AM CDT Therapy Visit [facility] [address] [place] [address] Jason Alvares MD [address] [place] [address] Chaya Castillo OTR [address] [address] 05/15/2025 12:30 PM CDT Office Visit [address] [phone] Marquise Hanley MD [address] [place] [address] 06/08/2025 9:15 AM CDT Office Visit [facility] Hepatology Clinic [address] [phone] Jignesh Mathias MD [address] [place] [address] 11/05/2025 1:45 PM CDT Office Visit [facility] D[facility]atology [facility] [place] 9[address] [facility] 3rd [place] [phone] Gavi Nieto PA-C Dermatology [address] [place] [address]83 documented as of this encounter Goals Goal [...] Depression Total Score: 10 024 9:34 AM GAS OPERATIONS ANALYST documented as of this encounter Care Teams Process Automation Engineer Relationship Specialty Start Date End Date Omar Carmona MD [address] [place] [address]17 PCP - General Family Medicine 07/14/24 Barry Kilpatrick MD [address] [place] [address] [id number] [place] [address] Neurology 07/19/14 Michelle Henderson I, TANIA Nurse Coordinator Neurology 07/19/14 Rio Jaquez MD [address] [place] [address] Family Practice 10/15/14 Jemima Jaramillo MD [address] [place] [address] 13902 salvage worker 11/20/14 Kelley Chin, TANIA [place] [address] [place] [address] Nurse Coordinator Cardiology 11/04/15 Sydnee Saleem MD [address] [place] [address] 508 [place] [address] Cardiology 11/04/15 Karlene Moya MD [address] [place] [address] 289385 Ophthalmology 06/24/17 Wilbert Quintero, OD [address] [place] [address] 102705 Optometry 06/24/17 Rod Gauthier DPM [address] [place] [address] 287435 Boom Worker Primary Podiatric Medicine 06/21/18 Jan Mahmood MD [address] [place] [address] 2A [place], [place] 584335 MD Gastroenterology 11/05/20 Brandt Quintana MD [address] [place] [address]80 Resident 11/05/20 Jan Mahmood MD [address] [place] [address] Assigned Gastroenterology Provider 12/01/20 Rio Jaquez MD [address] [place] [address] 4 [place] [address] Assigned PCP 11/17/20 09/30/24 Dom Eason MD [address] [place] [address] Internal Medicine 12/02/20 Jaimie Vernon, RN Specialty Crushing Machine Operator Cardiology 10/28/21 Marquise Hanley MD [address] [place] [address] Endocrinology, Diabetes, and Metabolism 03/05/22 Vlad Ramey MD [address] [place] [address] 09763 Cardiovascular Disease 05/07/22 Joesph Crowe MD [address] [place] [address] 19153 MD Surgery 05/07/22 Michelle Padilla, RN Specialty Crushing Machine Operator Cardiology 07/03/22 Marquise Hanley MD [address] [place] [address] 77140 Assigned Endocrinology Provider 08/15/22 Wagner Oliver MD [address] [place] [address] Critical Care 12/15/22 Joesph Crowe MD [address] [place] [address] 66968 MD Surgery 03/17/23 Joesph Crowe MD [address] [place] [address] 89097 Assigned Surgical Provider 04/03/23 09/30/24 Adonay Haq MD [address] [place] [address] 01064 Internal Medicine 06/14/23October, Denilson Jackson MD [address] [facility] [address] [place] [address] Assigned Heart and Vascular Provider 05/29/23 11/28/24 Jason Alvares MD [address] [place] [address] Assigned Neuroscience Provider 05/15/23 11/28/24 Ruth Riddle DPM, Podiatry/Foot and Ankle Surgery [address] [place] [address] Assigned Musculoskeletal Provider 10/22/23 Jignesh Mathias MD [address] [place] [address] 31278 Gastroenterology 09/25/24 Adonay Haq MD [address] [place] [address] 89017 Assigned PCP 10/01/24 12/28/24 Omar Carmona MD [address] [place] [address] 42960 Assigned PCP 12/29/24 Jason Alvares MD [address] [place] [address] 82648 Assigned Neuroscience Provider 12/29/24 Jignesh Mathias MD 9 [place] [address] Assigned Surgical Provider 12/29/24 Ayad Lopez, PhD LP [address] [place] [address] [phone] Assigned Behavioral Health Provider 02/28/25 Gavi Nieto, PANavinC [address] [place] [address] [phone] Physician Network Operations Center Technician Dermatology 03/19/25 documented as of this encounter
--- OUTSIDE RECORDS SUMMARY | 2025-03-24 20:27 | XMS_ITS | Encounter Summary ---
Author Organization [place] Address [address] [place] [address] Care Team Providers Care Oxygen Plant Operator Name Role Phone Rio Jaquez MD Primary Care Provider Barry Kilpatrick MD Unavailable Michelle Henderson RN Unavailable [phone] Rio Jaquez MD Unavailable [phone] Jemima Jaramillo MD Unavailable Unavai Kelley Bautista RN Unavailable [phone] Sydnee Saleem MD Unavailable [phone] Karlene Moya MD Unavailable [phone] Wilbert Quintero OD Unavailable [phone] Rod Gauthier DPM Unavailable [phone] Nallely Hogue RN Unavailable Unavailable Larisa Vargas RN Unavailable Unavailable Francisco Lott MD Unavailable [phone] Greg Ortega MD Unavailable [phone] Jan Mahmood MD Unavailable [phone] Brandt Quintana MD Unavailable [phone] Jan Mahmood MD Unavailable Rio Jaquez MD Unavailable [phone] Dom Eason MD Unavailable Jayla Plaza RN Unavailable Sydnee Saleem MD Unavailable Phan Coello MD Unavailable Unavailable Cristian Barragan MD Unavailable Dom Eason MD Unavailable Jiamie Vernon RN Unavailable Unavailable Ruth Riddle DPM, [...] MD Unavailable Joesph Crowe MD Unavailable [phone] Joesph Crowe MD Unavailable [phone] Adonay Haq MD Unavailable [phone] Denilson Srinivasan MD Unavailable [phone] Jason Alvares MD Unavailable Ruth RiddleM, Podiatry /Foot and Ankle Surgery Unavailable Omar Carmona MD Primary Care Provider [phone] Jignesh Mathias MD Unavailable Adonay Haq MD Unavailable [phone] Omar Carmona MD Unavailable [phone] Jason Alvares MD Unavailable Jignesh Mathias MD Unavailable Ayad Lopez PhD LP Unavailable [phone] Gavi Nieto-C Unavailable [phone] Encounter Details Date Type Department Care Team (Late st Contact Info) Description 11/14/2021 [facility] [address] [phone] [facility] Social History Tobacco Use Types Packs/Day [...] than three times a week 08/27/2021 Attends Hinduism Services Not on file 08/27 Do you belong to any clubs o r organizations such as temple groups, unions, fraClassPass or athletic groups, or school groups? No [...] Answer Date Recorded PHQ-2 Score 2 08/27/2021 [facility] - [...] Sex Assigned at Female 09/12/2020 12:05 PM NICKEL OPERATOR Legal Sex Female 3:26 AM NICKEL OPERATOR Gender Identity Female 09/12/2020 12:05 PM NICKEL OPERATOR Sexual Orientation Straight 12/19/2021 10 :44 [...] suspected to have Coronavirus/COVID-19? No / Unsure 11/17/2021 7:45 AM CDT documented as of this encounter Plan of Treatment Upcoming Encounters Date Type Department Care Team (Late st Contact Info) Description 03/26/2025 11:00 AM CDT Therapy Visit [address] [phone] Jason Alvares MD [address] [facility] [address] [place], [place] [phone] Chaya Castillo OTR [facility] [address] [place], [place] [phone] 03/29/2025 10:30 AM CDT Therapy Visit [facility] [address] [place] [address] [place] [phone] [place] [address] [address] [place], [place] [address] 04/02/2025 11:00 AM CDT Therapy Visit [facility] [address] [place] [phone] Jason Alvares MD [address] [place] [address] Chaya Castillo OTR [address] [address] 04/11/2025 12:30 PM CDT Office Visit [facility] [address] 4th [place] [phone] Omar Carmona MD [address] [place] [address] 04/12/2025 2:15 PM CDT Therapy Visit [address] [phone] Jason Alvares MD [address] [place] [address] Chaya Castillo, OTR [address] [address] 04/16/2025 11:00 AM CDT Therapy Visit [address] [phone] Jason Alvares MD [address] [place] [address] Chaay Castillo, OTR [facility] [address] [facility] [place] [place] [address] 04/23/2025 11:00 AM CDT Therapy Visit [facility] [address] [facility] [place] [phone] Jason Alvares MD [address] [place] [address] Chaya [facility]illo [facility] [address] [place] [address] 04/30/2025 11:00 AM CDT Therapy Visit [facility] [address] [facility] [place] [phone] Jason Alvares MD [address] [place] [address] Chaya [facility]illo [facility] [address] [place] [address] 05/15/2025 12:30 PM CDT Office Visit [address] [phone] Marquise Hanley MD [address] [place] [address] 06/08/2025 9:15 AM CDT Office Visit [facility] Hep[facility]ology [facility] [address] [phone] Jignesh Mathias MD [address] [place] [address] 11/05/2025 1:45 PM CDT Office Visit [facility] Dermatology Clinic [address] 3rd [place] [phone] Gavi Nieto PA-C Dermatology [address] [place] [address] documented as of this encounter Goals Goal [...] Total Score: 5 08/27/19 22 9:25 AM NICKEL OPERATOR documented as of this encounter Care Teams Oxygen Plant Operator Relationship Specialty Start Date End Date Rio Jaquez MD [address] [place] [address] PCP - General Family Practice 12/02/10 07/13/24 Omar Carmona MD [address] [place] [address] [phone] PCP - General Family Medicine 07/14/24 Barry Kilpatrick MD [address] [place] [address] [id number] [place], [place] [phone] Neurology 07/19/14 Michelle Henderson I, RN Nurse Coordinator Neurology 07/19/14 Rio Jaquez MD [address] [place] [address] 086275 Family Practice 10/15/14 Jemima Jaramillo MD zinc plater 11/20/14 Kelley Chin, TANIA RUST [address] [place], [place] 583405 Nurse Coordinator Cardiology 11/04/15 Sydnee Saleem MD [address] [place] [address] [address] [place], [place] 548[address] Cardiology 11/04/15 Karlene Moya MD [address] [place] [address] [phone] Ophthalmology 06/24/17 Wilbert Quintero, OD [address] [place] [address] 78[address] Optometry 06/24/17 Rod Gauthier DPM [address] [place] [address] [phone] Animal Attendant Primary Podiatric Medicine 06/21/18 Nallely Hogue, RN Registered Nurse 02/20/19 11/23/22 Larisa Vargas, TANIA Specialty Facing Cutting Machine Operator Cardiology 04/18/19 03/06/22 Francisco Lott MD [address] [place] [address] [phone] Assigned Rheumatology Provider 05/31/20 12/13/21 Greg Ortega MD [address] [place] [address] [phone] Assigned Surgical Provider 06/23/20 12/06/21 Jan Mahmood MD [address] [facility] [address] [place] [address] Gastroenterology 11/05/20 Brandt Quintana MD [address] [place] [address] Resident 11/05/20 Jan Mahmood MD [address] [facility] [address] [place] [address] Assigned Gastroenterology Provider 12/01/20 Rio Jaquez MD [address] [facility] [address] [place], [place] [phone] Assigned PCP 11/17/20 09/30/24 Dom Eason MD [address] [facility] [address] [place], [place] [phone] Internal Medicine 12/02/20 Jayla Plaza, RN Specialty Facing Cutting Machine Operator Hepatology 01/09/21 02/13/24 Sydnee Saleem MD [address] [place] [address] Assigned Heart and Vascular Provider 02/02/21 07/24/22 Phan Coello MD Assigned Neuroscience Provider 02/21/21 11/22/21 Cristian Barragan MD [address] [place] [address] Assigned Infectious Disease Provider 02/21/21 03/06/22 Dom Easno MD 717 [facility] 353 [place] [address] Assigned Nephrology Provider 04/20/21 01/02/22 Jaimie Vernon, RN Specialty Facing Cutting Machine Operator Cardiology 10/28/21 Ruth Riddle DPM, Podiatry/Foot and Ankle Surgery [address] [facility] [address] [place] [address] Assigned Musculoskeletal Provider 11/30/21 09/30/23 Luis Arrington MD [address] [place] [address] Assigned Neuroscience Provider 11/23/21 01/02/22 Jason Alvares MD [address] [place] [address] 295 [place] [address] Assigned Neuroscience Provider 01/03/22 05/15/22 Marquise Hanley MD [address] [place] [address] Endocrinology, Diabetes, and Metabolism 03/05/22 Vlad Ramey MD [address] [place] [address] Cardiovascular Disease 05/07/22 Joesph Crowe MD [address] [place] [address] Surgery 05/07/22 Luis Arrington MD [address] [place] [address] Assigned Neuroscience Provider 05/16/22 05/14/23 Michelle Padilla, RN Specialty Facing Cutting Machine Operator Cardiology 07/03/22 Vlad Ramey MD [address] [place] [address] Assigned Heart and Vascular Provider 07/25/22 05/28/23 Marquise Hanley MD [address] [place] [address] Assigned Endocrinology Provider 08/15/22 Dom Eason MD [address] [facility] [address] [place] [address] Assigned Nephrology Provider 11/28/22 02/19/23 Wagner Oliver MD [address] [place] [address] Critical Care 12/15/22 Laura Epperson, WEB OPERATIONS LEAD [address]17 [facility] [address] [place] [address] Assigned Nephrology Provider 02/20/23 08/30/24 Thom Taveras MD [address] [place] [address] Assigned Cancer Care Provider 02/06/23 08/20/23 Joesph Crowe MD 9 [place] [address] Surgery 03/17/23 Joesph Crowe MD 9 [place] [address] Assigned Surgical Provider 04/03/23 09/30/24 Adonay aHq MD [address] [place] [address] Internal Medicine 06/14/23October, Denilson Jackson MD [address] [facility] [address] [place] [address] Assigned Heart and Vascular Provider 05/29/23 11/28/24 Jason Alvares MD 420 [facility] [address] [place] [address] Assigned Neuroscience Provider 05/15/23 11/28/24 Ruth Riddle DPM, Podiatry/Foot and Ankle Surgery [address] [facility] [address] [place], [place] 1449[address] Assigned Musculoskeletal Provider 10/22/23 Jignesh Mathias MD [address] [place] [address] Gastroenterology 09/25/24 Adonay Haq MD [address] [place] [address] Assigned PCP 10/01/24 12/28/24 Omar Carmona MD [address] [place] [address] Assigned PCP 12/29/24 Jason Alvares MD [address] [place] [address] [address] [place], [place] 308265 Assigned Neuroscience Provider 12/29/24 Jignesh Mathias MD [address] [place] [address] Assigned Surgical Provider 12/29/24 Ayad Lopez, PhD LP [address] [place] [address] [phone] Assigned Behavioral Health Provider 02/28/25 Gavi Nieto PANavinC [address] [place] [address] [phone] Physician Residential Fee Appraiser Dermatology 03/19/25 documented as of this encounter
--- OUTSIDE RECORDS SUMMARY | 2025-03-24 20:27 | XMS_ITS | Encounter Summary ---
Author Organization [facility] Address [address] [place] [address] Care Team Providers Care Remote Recruiter Name Role Phone Rio Jaquez MD Primary Care Provider Barry Kilpatrick MD Unavailable Michelle Henderson RN Unavailable [phone] Rio Jaquez MD Unavailable [phone] Jemima Jaramillo MD Unavailable Unavai Kelley Bautista RN Unavailable [phone] Sydnee Saleem MD Unavailable [phone] Karlene Moya MD Unavailable [phone] Wilbert Quintero OD Unavailable [phone] Rod Gauthier DPM Unavailable [phone] Nallely Hogue RN Unavailable Unavailable Larisa Vargas RN Unavailable Unavailable Francisco Lott MD Unavailable [phone] Greg Ortega MD Unavailable [phone] Jan Mahmood MD Unavailable [phone] Brandt Quintana MD Unavailable [phone] Jan Mahmood MD Unavailable Rio Jaquez MD Unavailable [phone] Dom Eason MD Unavailable Jayla Plaza RN Unavailable Sydnee Saleem MD Unavailable Cristian Barragan MD Unavailable [phone] Dom Eason MD Unavailable + [phone] Jaimie Vernon RN Unavailable Unavailable Ruth Riddle DPM, Podiatry /Foot and Ankle Surgery Unavailable Luis Arrington MD Unavailable [phone] Jason Alvares MD Unavailable Marquise Hanley MD Unavailable +[phone] Vlad Ramey MD Unavailable [phone] Joesph Crowe MD Unavailable [phone] Luis Arrington MD Unavailable +[phone] Michelle Padilla RN Unavailable Unavaila ble Vlad Ramey MD Unavailable [phone] Marquise Hanley MD Unavailable +[phone] Dom Eason MD Unavailable Wagner Oliver MD Unavailable + [phone] Laura Epperson NP Unavailable [phone] Thom Taveras MD Unavailable [phone] Joesph Crowe MD Unavailable [phone] Joesph Crowe MD Unavailable [phone] Adonay Haq MD Unavailable [phone] OctoberDenilson MD Unavailable +[phone] Jason Alvares MD Unavailable Ruth RiddleM, Podiatry /Foot and Ankle Surgery Unavailable Omar Carmona MD Primary Care Provider Jignesh Mathias MD Unavailable Adonay Hqa MD Unavailable Omar Carmona MD Unavailable Jason Alvares MD Unavailable Jignesh Mathias MD Unavailable Ayad Lopez PhD LP Unavailable [phone] Gavi Nieto-Keisha Unavailable +[phone] Reason for Referral * Diagnostic Imaging Dexa (Routine) - Closed Specialty Diagnoses / Procedures Referred By Good zhu Referred To Contact Diagnoses Vitamin D deficiency Bony abnormality Asymptomatic menopausal state Procedures Dexa hip/pelvis/spine* Rio Jaquez MD [address] [place] [address] Phone: tel: fax: Referral ID Status Reason Start Date Expiration Date Visits Re quested Visits Authorized [id number] Closed 11/28/2021 11/28/2022 1 1 Encounter Details Date Type Department Care Team (Late st Contact Info) Description 11/25/2021 [facility] Medical Advice [facility] [address] [place] [address] Rio Jaquez MD [address] [place] [address] Vitamin D deficiency (Primary Dx); Bony abnormality; Asymptomatic menopausal state Social History Tobacco Use Types Packs/Day Years [...] any clubs o r organizations such as uatsdin groups, unions, fraternal or athletic groups, or [...] Answer Date Recorded PHQ-2 Score 2 08/27/2021 [facility] - Occupational Stress [...] place to sleep or slept in a skilled nursing (including now)? No 08/27/2021 Comments No Sex and Gender Information Value Date Recorded Sex Assigned at Female 09/12/2020 12:05 PM PRIMARY COUNSELOR Legal Sex Female 3:26 AM PRIMARY COUNSELOR Gender Identity Female 09/12/2020 12:05 PM PRIMARY COUNSELOR Sexual Orientation Straight 12/19/2021 10 :44 AM [...] suspected to have Coronavirus/COVID-19? No / Unsure 11/21/2021 1:36 PM CDT documented as of this encounter Plan of Treatment Upcoming Encounters Date Type Department Care Team (Late st Contact Info) Description 03/26/2025 11:00 AM CDT Therapy Visit [address] [address] Jason Alvares MD [address] [place] [address] [phone] Chaya Castillo, OTR [address] [address] 03/29/2025 10:30 AM CDT Therapy Visit [facility] [address] [address] [place] [phone] [place] [address] [place] [address] 04/02/2025 11:00 AM CDT Therapy Visit [address] [phone] Jason Alvares MD [address] [place] [address] [phone] Chaya Castillo, OTR [address] [address] 04/11/2025 12:30 PM CDT Office Visit [facility] [address] 4th [place] [phone] Omar Carmona MD [address] [place] [address] 196155 04/12/2025 2:15 PM CDT Therapy Visit [facility] [address] [place] [address] Jason Alvares MD [address] [place] [address] Chaya Castillo, OTR [facility] [address] [place] [address] 04/16/2025 11:00 AM CDT Therapy [facility] [place] [address] Jason Alvares MD [address] [place] [address] Chaya Castillo OTR [facility] [address] [facility] [place] [address] 04/23/2025 11:00 AM CDT Therapy Visit [facility] [address] [facility] [place] [address] Jason Alvares MD [address] [place] [address] Chaya Castillo OTR [facility] [address] [facility] [place] [address] 04/30/2025 11:00 AM CDT Therapy Visit [facility] [address] [place] [address] Jason Alvares MD [address] [place] [address] Chaya Castillo OTR [facility] [address] [place] [address] 05/15/2025 12:30 PM CDT Office Visit [address] [phone] Marquise [place] MD [address] [place] [address]115 06/08/2025 9:15 AM CDT Office Visit [facility] [address] [phone] Jignesh Mathias MD [address] [place] [address] 088715 11/05/2025 1:45 PM CDT Office Visit [facility] [address]rd [place] [address] Gavi Nieto PA-C Dermatology [address] [place] [address] documented as of this encounter Goals Goal Patient Goal Type Associated Problems Recent Progress Patient-Stated? Author Quit smoking / using tobacco Lifestyle Rio Will MD Note: 06/25/14 planned quit date documented as of this encounter Results * Dexa hip/pelvis/spine* (12/04/2021 10:30 AM CDT) Anatomical Region Laterality Modality Dexa Bone Mineral Den sity Narrative 12/04/2021 2:14 PM CDT [facility] - [address] [address] Phone: Fax: Patient name: Carol Wright Annshantel Patient demographics: 51 year old White Female History: Evaluation of Bone Density, History of Fracture, senior care use of steroids, Low Vit D, Post Menopausal and Tobacco Habit - Current Current treatments: Antiseizure medications, Thyroid Medications, Vitamin D Scan: Abimate.ee Impression The most negative and valid T-score of -2.2 at the level of the right total hip corresponds with low bone density according to WHO criteria for postmenopausal females and men age 50 and over. The risk of osteoporotic fracture increases approximately 2-fold for each 1.0 SD decrease in T-score. Results Lumbar spine T-score -1.5 , BMD 0.994 g/cm2. Left Femur neck T-score -1.5 , BMD 0.823 g/cm2. Left Total hip T-score -1.9 , BMD 0.772 g/cm2. Right Femur neck T-score -1.7, BMD 0.796 g/cm2. Right Total hip T-score -2.2 , BMD 0.729 g/cm2. Interval change No prior study available for comparison Percent changes not mentioned or within remaining regions are insignificant Please note that the differential diagnosis of BMD increase in the spine includes improvement due to pharmacotherapy vs inter-current progression of spine degeneration or fracture Fracture risk The risk of osteoporotic fracture increases approximately 2-fold for each 1.0 SD decrease in T-score. Low bone density is not the only risk factor for fracture; consider factors such as patient's age, fall risk, injury risk, previous osteoporotic fracture, family history of osteoporosis, etc. Repeat For patients eligible for Medicare, routine testing is allowed once every 2 years. Testing frequency can be increased for patients on corticosteroids. Clinical correlation recommended Technical quality Satisfactory. Principal result sap solution manager consultant: Narendra Dickinson MD, [facility] Division of Endocrinology and Diabetes Department of Medicine References: Ref. 1. WHO categories: T-score > -1.0 = normal . T-score -1.0 to -2.5 = low bone density T-score < -2.5 = osteoporosis . Ref. 2. 2015 ISCD official position statements: www.iscd.org. Ref. 3. Today's examination is compared to the technically similar prior study of the total hip and femur if available. Only changes deemed likely to be significant based on historical data are reported. According to the ISCD position statements, total hip rather than femoral neck regions are to be compared because larger areas give better precision. LSC = least significant changes at the [facility] Imaging Center (historical data) AP spine = 0.032 g/cm2 (02/01/2007) Left hip = 0.029 g/cm2 (01/21/2007) Right hip = 0.018 g/cm2 (01/21/2007) Left mid radius = 0.043 g/cm2 (02/01/2007) Please note that the differential diagnosis of increase in bone density at the lumbar spine includes improvement due to pharmacotherapy vs inter-current progression of spine degeneration or fracture. Ref. 4 Fracture risk is calculated in patients aged 40 to 90 years old with low bone density not on osteoporosis treatment. A 10 year fracture risk of 3% and higher for hip fracture and 20% and higher for major osteoporotic fracture is considered higher than acceptable risk and might be an indication for medical treatment. Ref. 5. By definition, osteoporosis may be diagnosed in the presence or with the history of a low trauma or fragility fracture. Fragility and low trauma fracture is defined as a fracture resulting from the force of a fall from a standing height or less or a bone that breaks under conditions that would not cause a normal bone to break. Ref. 6. NOF Physician's Guideline Website address: www.nof.org. us Rio Jaquez MD IMG DEXA ORDERABLES Final Result documented in this encounter Visit Diagnoses Diagnosis Vitamin D deficiency- Primary Unspecified vitamin D deficiency Bony abnormality Other and unspecified congenital anomaly of musculoskeletal system Asymptomatic menopausal state Asymptomatic postmenopausal status (age-related) (natural) Vitamin D deficiency Unspecified vitamin D deficiency Bony abnormality Other and unspecified congenital anomaly of musculoskeletal system Asymptomatic menopausal state Asymptomatic postmenopausal status (age-related) (natural) documented in this encounter Additional Health Concerns Infection Onset Date Last Indicated Resolved Time MRSA Comment:Added from external infection. 10/23/2020 10/21/2020 Rule Out COVID-19 02/09/2024 02/09/2024 02/09/2024 1:52 AM CDT Assessment Noted Time PHQ-9 Depression Total Score: 5 08/27/19 22 9:25 AM PRIMARY COUNSELOR documented as of this encounter Care Teams Remote Recruiter Relationship Specialty Start Date End Date Rio Jaquez MD [address] [address] PCP - General Family Practice 12/02/10 07/13/24 Omar Carmona MD [address] [place] [address] [phone] PCP - General Family Medicine 07/14/24 Barry Kilpatrick MD [address] [place] [address] [id number] [place], [place] 525135 Neurology 07/19/14 Michelle Henderson I, RN Nurse Coordinator Neurology 07/19/14 Rio Jaquez MD [address] [place] [address] 4 [place], [place] [phone] Family Practice 10/15/14 Jemima Jaramillo MD factory hand 11/20/14 Kelley Chin, TANIA [address] [address] Nurse Coordinator Cardiology 11/04/15 Sydnee Saleem MD [address] [place] [address] 508 [place], [place] 621005 Cardiology 11/04/15 Karlene Moya MD [address] [place] [address] [phone] Ophthalmology 06/24/17 Wilbert Quintero, OD [address] [place] [address] [phone] Optometry 06/24/17 Rod Gauthier DPM [address] [place] [address] Tissue Technologist Primary Podiatric Medicine 06/21/18 Nallely Hogue, RN Registered Nurse 02/20/19 11/23/22 Larisa Vargas, RN Specialty Angle Furnaceman Cardiology 04/18/19 03/06/22 Francisco Lott MD 515 [facility] 88 [place] [address] Assigned Rheumatology Provider 05/31/20 12/13/21 Greg Ortega MD 909 [place], [place] [phone] Assigned Surgical Provider 06/23/20 12/06/21 Jan Mahmood MD [address] [facility] 2[address] [place] [address] Gastroenterology 11/05/[address] [facility] [place] [address] Resident 11/05/20 Jan Mahmood MD [address] [facility] 2[address] [place] [address] Assigned Gastroenterology Provider 12/01/20 Rio Jaquez MD [address] [phone] Assigned PCP 11/17/20 09/30/24 Dom Eason MD 717 [facility] 353 [place] [address] Internal Medicine 12/02/20 Jayla Plaza, RN Specialty Angle Furnaceman Hepatology 01/09/21 02/13/24 Sydnee Saleem MD 6551 [facility] [address] [place] [address] [phone] Assigned Heart and Vascular Provider 02/02/21 07/24/22 Cristian Barragan MD [address] [place] [address] Assigned Infectious Disease Provider 02/21/21 03/06/22 Dom Eason MD [address] [place] [address] [phone] Assigned Nephrology Provider 04/20/21 01/02/22 Jaimie Vernon, TANIA Specialty Angle Furnaceman Cardiology 10/28/21 Ruth Riddle DPM, Podiatry/Foot and Ankle Surgery [address] [place] [address] [address] Assigned Musculoskeletal Provider 11/30/21 09/30/23 Luis Arrington MD [address] [place] [address] 095975 Assigned Neuroscience Provider 11/23/21 01/02/22 Jason Alvares MD [address] [place] [address] 295 [place], [place] [phone] Assigned Neuroscience Provider 01/03/22 05/15/22 Marquise [place] MD [address] [place] [address] 012935 Endocrinology, Diabetes, and Metabolism 03/05/22 Vlad Ramey MD [address] [place] [address] Cardiovascular Disease 05/07/22 Joesph Crowe MD [address] [place] [address] Surgery 05/07/22 Luis Arrington MD [address] [place] [address] [phone] Assigned Neuroscience Provider 05/16/22 05/14/23 Michelle Padilla RN Specialty Angle Furnaceman Cardiology 07/03/22 Vlad Ramey MD [address] [place] [address] Assigned Heart and Vascular Provider 07/25/22 05/28/23 Marquise [place] MD [address] [place] [address] Assigned Endocrinology Provider 08/15/22 Dom Eason MD [address] [place] [address] Assigned Nephrology Provider 11/28/22 02/19/23 Wagner Oliver MD [address] [place] [address] Critical Care 12/15/22 Laura Epperson NP [address] [place], [place] [address] [place] [address] Assigned Nephrology Provider 02/20/23 08/30/24 Thom Taveras MD [address] [place] [address] R105 [place] [address] Assigned Cancer Care Provider 02/06/23 08/20/23 Joesph Crowe MD [address] [place] [address] MD Surgery 03/17/23 Joesph Crowe MD [address] [place] [address] Assigned Surgical Provider 04/03/23 09/30/24 Adonay Haq MD [address] [place] [address] Internal Medicine 06/14/23OctoberDenilson MD 6[address] [facility] [address] [place] [address] Assigned Heart and Vascular Provider 05/29/23 11/28/24 Jason Alvares MD [address] [place] [address] 295 [place] [address] Assigned Neuroscience Provider 05/15/23 11/28/24 Ruth Riddle DPM, Podiatry/Foot and Ankle Surgery [address] [place] [address] Assigned Musculoskeletal Provider 10/22/23 Jignesh Mathias MD [address] [place] [address] 039155 Gastroenterology 09/25/24 Adonay Haq MD [address] [place] [address] [phone] Assigned PCP 10/01/24 12/28/24 Omar Carmona MD [address] [place] [address] 397115 Assigned PCP 12/29/24 Jason Alvares MD [address] [place] [address] 434265 Assigned Neuroscience Provider 12/29/24 Jignesh Mathias MD [address] [place] [address] [phone] Assigned Surgical Provider 12/29/24 Ayad Lopez, PhD LP [address] [place] [address] [phone] Assigned Behavioral Health Provider 02/28/25 Gavi Nieto PA-C [address] [place] [address] 120505 Physician Caster Helper Dermatology 03/19/25 documented as of this encounter
--- OUTSIDE RECORDS SUMMARY | 2025-03-24 20:27 | XMS_ITS | Encounter Summary ---
Author Organization [facility] Address [address] [place] [address] 16[address] Care Team Providers Care Relocation Director Name Role Phone Rio Jaquez MD Primary Care Provider Barry Kilpatrick MD Unavailable Michelle Henderson I RN Unavailable [phone] Rio Jaquez MD Unavailable +[phone] Jemima Jaramillo MD Unavailable Unavai Kelley Bautista RN Unavailable [phone] Sydnee Saleem MD Unavailable [phone] Karlene Moya MD Unavailable Wilbert Quintero OD Unavailable +[phone] Rod Gauthier DPM Unavailable Jan Mahmood MD Unavailable [phone] Brandt Quintana MD Unavailable Jan Mahmood MD Unavailable +[phone] Rio Jaquez MD Unavailable [phone] Dom Eason MD Unavailable Jayla Plaza RN Unavailable +[phone] Jaimie Vernon RN Unavailable Unavailable Ruth Riddle DPM, Podiatry /Foot and Ankle Surgery Unavailable Marquise Hanley MD Unavailable +[phone] Vlad Ramey MD Unavailable +[phone] Joesph Crowe MD Unavailable [phone] Luis Arrington MD Unavailable +[phone] Michelle Padilla RN Unavailable Unavaila ble Vlad Ramey MD Unavailable +[phone] Marquise Hanley MD Unavailable +[phone] Wagner Oliver MD Unavailable +[phone] Laura Epperson NP Unavailable +[phone] Thom Taveras MD Unavailable +[phone] Joesph Crowe MD Unavailable [phone] Joesph Crowe MD Unavailable [phone] Adonay Haq MD Unavailable +[phone]- Denilson Srinivasan MD Unavailable + [phone] Jason Alvares MD Unavailable Ruth Riddle DPM, Podiatry /Foot and Ankle Surgery Unavailable Omar Carmona MD Primary Care Provider +[phone] Jignesh Mathias MD Unavailable Adonay Haq MD Unavailable +[phone] Omar Carmona MD Unavailable +[phone] Jason Alvares MD Unavailable Jignesh Mathias MD Unavailable Ayad Lopez PhD LP Unavailable [phone] Gavi Nieto PA-C Unavailable [phone] Encounter Details Date Type Department Care Team (Late st Contact Info) Description 03/16/2023 [facility] [address] 3rd [place] [address] Shara Payne, RN Social History Tobacco Use Types Packs/Day Years Used Date Smoking Tobacco: Every Day Cigarettes 0.5 42.6 Started: 08/09/1982 Other Smokeless Tobacco: Never Alcohol Use Standard Drinks/Week Comments Not Currently 0 (1 standard drink = 0.6 oz pure alcohol) Haven't had a drink since this time last year Humiliation, Afraid, Rape, and Kick questionnair e [...] any clubs o r organizations such as spiritism groups, unions, fraternal or athletic groups, or [...] PHQ-2 Answer Date Recorded PHQ-2 Score 2 03/15/2023 [facility] - Occupational [...] place to sleep or slept in a [place] health care facility (including now)? No 08/27/2021 Comments No Sex and Gender Information Value Date Recorded Sex Assigned at Female 09/12/2020 12:05 PM CLIENT RELATIONSHIP EXECUTIVE Legal Sex Female 3:26 AM CLIENT RELATIONSHIP EXECUTIVE Gender Identity Female 09/12/2020 12:05 PM CLIENT RELATIONSHIP EXECUTIVE Sexual Orientation Straight 12/19/2021 10 :44 AM [...] suspected to have Coronavirus/COVID-19? No / Unsure 03/17/2023 3:01 PM CDT documented as of this encounter Plan of Treatment Upcoming Encounters Date Type Department Care Team (Late st Contact Info) Description 03/26/2025 11:00 AM CDT Therapy Visit [facility] [address] [place] [phone] Jason Alvares MD [address] [place] [address] 645715 Chaya Castillo OTR [facility] 150 [place] [address] 03/29/2025 10:30 AM CDT Therapy Visit [facility] [address] [place] [phone] [place] [address] [place] [address] 04/02/2025 11:00 AM CDT Therapy Visit [facility] [address] [place] [phone] Jason Alvares MD [address] [place] [address] 613975 Chaya Castillo OTR [facility] [place] 150 [place] [address] 04/11/2025 12:30 PM CDT Office Visit [facility] [address] 4th [place] [phone] Omar Carmona MD [address] [place] [address] 04/12/2025 2:15 PM CDT Therapy Visit [facility] [place] [address] [facility] [place] [phone] Jason Alvares MD [address] [place] [address] Chaya Castillo, OTR [facility] [place] 150 [place] [address] 04/16/2025 11:00 AM CDT Therapy Visit [facility] 150 [facility] [place] [phone] Jason Alvares MD [address] [place] [address] Chaya Castillo, OTR [facility] [place] 150 [place] [address] 04/23/2025 11:00 AM CDT Therapy Visit [facility] 150 [facility] [place] [address] Jason Alvares MD [address] [place] [address] Chaya Castillo OTR [facility] [place] 150 [facility] [place] [address] 04/30/2025 11:00 AM CDT Therapy Visit [facility] 150 [place] [address] Jason Alvares MD 420 [facility] 295 [place] [address] Chaya Castillo, OTR [facility] 150 [place] [address] 05/15/2025 12:30 PM CDT Office Visit [address] [phone] Marquise Hanley MD [address] [place] [address] 06/08/2025 9:15 AM CDT Office Visit [facility] [address] [phone] Jignesh Mahtias MD [address] [place] [address] 582575 11/05/2025 1:45 PM CDT Office Visit [facility] Dermatology [address] 3rd [place] [address] Gavi Nieto PA-C Dermatology [address] [place] [address] documented as of this encounter Goals Goal [...] Noted Time PHQ-9 Depression Total Score: 8 03/15/20 23 10:09 AM CDT documented as of this encounter Care Teams Relocation Director Relationship Specialty Start Date End Date Rio Jaquez MD [address] [place] [address] 4 [place] [address] PCP - General Family Practice 12/02/10 07/13/24 Omar Carmona MD [address] [place] [address] 743355 PCP - General Family Medicine 07/14/24 Barry Kilpatrick MD [address] [place] [address] [place], [place] [address] Neurology 07/19/14 Michelle Henderson I, RN Nurse Coordinator Neurology 07/19/14 Rio Jaquez MD [address] [place] [address] 481955 Family Practice 10/15/14 Jemima Jaramillo MD marklogic developer 11/20/14 Kelley Chin, TANIA [address] 422275 Nurse Coordinator Cardiology 11/04/15 Sydnee Saleem MD [address] [place] [address] 508 [place] [address] Cardiology 11/04/15 Karlene Moya MD 516 [place] [address] Ophthalmology 06/24/17 Wilbert Quintero OD [address] [place] [address] Optometry 06/24/17 Rod Gauthier DPM [address] [place] [address] 17[address] Resistor [facility] Primary Podiatric Medicine 06/21/18 Jan Mhamood MD [address] [place] [address] Gastroenterology 11/05/20 Brandt Quintana MD [address] [place] [address] Resident 11/05/20 Jan Mahmood MD [address] [place] [address] Assigned Gastroenterology Provider 12/01/20 Rio Jaquez MD [address] [place] [address] 24807 Assigned PCP 11/17/20 09/30/24 Dom Eason MD [address] [address] Internal Medicine 12/02/20 Jayla Plaza, RN Specialty Dining Room Busser Hepatology 01/09/21 02/13/24 Jaimie Vernon, TANIA Specialty Dining Room Busser Cardiology 10/28/21 Ruth Riddle DPM, Podiatry/Foot and Ankle Surgery [address] [place] [address] Assigned Musculoskeletal Provider 11/30/21 09/30/23 Marquise Hanley MD [address] [place] [address] Endocrinology, Diabetes, and Metabolism 03/05/22 Vlad Ramey MD [address] [place] [address] 14779 Cardiovascular Disease 05/07/22 Joesph Crowe MD [address] [place] [address] 36366 MD Surgery 05/07/22 Luis Arrington MD [address] [place] [address] 18442 Assigned Neuroscience Provider 05/16/22 05/14/23 Michelle Padilla RN Specialty Dining Room Busser Cardiology 07/03/22 Vlad Ramey MD [address] [place] [address] 25998 Assigned Heart and Vascular Provider 07/25/22 05/28/23 Marquise Hanley MD [address] [place] [address] 864[address] Assigned Endocrinology Provider 08/15/22 Wagner Oliver MD [address] [place] [address] Critical Care 12/15/22 Laura Epperson NP 717 [facility] 1932 [place] [address] Assigned Nephrology Provider 02/20/23 08/30/24 Thom Taveras MD [address] [place] [address] R105 [place] [address] Assigned Cancer Care Provider 02/06/23 08/20/23 Joesph Crowe MD [address] [place] [address] 25031 Surgery 03/17/23 Joesph Crowe MD [address] [place] [address]79 Assigned Surgical Provider 04/03/23 09/30/24 Adonay Haq MD [address] [place] [address]40 Internal Medicine 06/14/23OctoberDenilson MD [address] [facility] [address] [place] [address] Assigned Heart and Vascular Provider 05/29/23 11/28/24 Jason Alvares MD [address] [place] [address] 295 [place] [address] Assigned Neuroscience Provider 05/15/23 11/28/24 Ruth Riddle, DPVik, Podiatry/Foot and Ankle Surgery [address] [place] [address] Assigned Musculoskeletal Provider 10/22/23 Jignesh Mathias MD [address] [place] [address] 47[address] Gastroenterology 09/25/24 Adonay Haq MD [address] [place] [address] Assigned PCP 10/01/24 12/28/24 Omar Carmona MD [address] [place] [address] 72198 Assigned PCP 12/29/24 Jason Alvares MD [address] [place] [address] 42597 Assigned Neuroscience Provider 12/29/24 Jignesh Mathias MD [address] [place] [address] 47737 Assigned Surgical Provider 12/29/24 Ayad Lopez, PhD LP [address] [place] [address] 560155 Assigned Behavioral Health Provider 02/28/25 Gavi Nieto PA-C [address] [place] [address] Physician Ground Surveillance Systems Operator Dermatology 03/19/25 documented as of this encounter
--- OUTSIDE RECORDS SUMMARY | 2025-03-24 20:27 | XMS_ITS | Encounter Summary ---
Author Organization [facility] Address [address] [place] [address] Care Team Providers Care Farrowing Worker Name Role Phone Rio Jaquez MD Primary Care Provider Barry Kilpatrick MD Unavailable Michelle Henderson RN Unavailable [phone] Rio Jaquez MD Unavailable [phone] Jemima Jaramillo MD Unavailable Unavai Kelley Bautista RN Unavailable [phone] Sydnee Saleem MD Unavailable [phone] Karlene Moya MD Unavailable [phone] Wilbert Quintero OD Unavailable [phone] Rod Gauthier DPM Unavailable [phone] Nallely Hogue RN Unavailable Unavailable Larisa Vargas RN Unavailable Unavailable Francisco Lott MD Unavailable [phone] Greg Ortega MD Unavailable [phone] Jan Mahmood MD Unavailable [phone] Brandt Quintana MD Unavailable [phone] Jan Mahmood MD Unavailable Rio Jaquez MD Unavailable [phone] Dom Eason MD Unavailable Jayla Plaza RN Unavailable Sydnee Saleem MD Unavailable Phan Coello MD Unavailable Unavailable Cristian Barragan MD Unavailable Dom Eason MD Unavailable Jaimie Vernon RN Unavailable Unavailable Ruth Ridlde DPM, Podiatry /Foot and Ankle Surgery Unavailable [...] MD Unavailable Joesph Crowe MD Unavailable [phone] Joesph Crowe MD Unavailable [phone] Adonay Haq MD Unavailable [phone] Denilson Srinivasan MD Unavailable [phone] Jason Alvares MD Unavailable Ruth RiddleM, Podiatry /Foot and Ankle Surgery Unavailable Omar Carmona MD Primary Care Provider [phone] Jignesh Mathias MD Unavailable Adonay Haq MD Unavailable [phone] Omar Carmona MD Unavailable [phone] Jason Alvares MD Unavailable Jignesh Mathias MD Unavailable Ayad Lopez PhD LP Unavailable [phone] Gavi Nieto-C Unavailable [phone] Encounter Details Date Type Department Care Team (Late st Contact Info) Description 09/22/2021 Community Resource Summary INTERFACED REPORT Social History Tobacco Use Types Packs/Day Years [...] than three times a week 08/27/2021 Attends [employer] Not on file 08/27 Do you [...] Answer Date Recorded PHQ-2 Score 2 08/27/2021 [facility] - [...] money to buy more. Never true 08/27/19 Within the past 12 months, t he [...] place to sleep or slept in a residential (including now)? No 08/27/2021 Comments No Sex and Gender Information Value Date Recorded Sex Assigned at Female 09/12/2020 12:05 PM SIEBEL DEVELOPER Legal Sex Female 3:26 AM SIEBEL DEVELOPER Gender Identity Female 09/12/2020 12:05 PM SIEBEL DEVELOPER Sexual Orientation Straight 12/19/2021 10 :44 AM [...] have Coronavirus / COVID-19? No / Unsure 09/09/2021 11:42 AM SIEBEL DEVELOPER documented as of this encounter Plan of Treatment Upcoming Encounters Date Type Department Care Team (Late st Contact Info) Description 03/26/2025 11:00 AM CDT Therapy Visit [address] [phone] Jason Alvares MD [address] [place] [address] 295 [place] [address] Chaya Castillo OTR [facility] [address] 931207 03/29/2025 10:30 AM CDT Therapy Visit [facility] [address] [facility] [address] [place] [phone] [place] [address] [place] [place] [address] 04/02/2025 11:00 AM CDT Therapy [facility] [address] [place] [address] Jason Alvares MD [address] [place] [address] Chaya Castillo [facility]TR [facility] 150 [place] [address] 04/11/2025 12:30 PM CDT Office Visit [facility] [address] 4th [place] [phone] Omar Carmona MD [address] [place] [address] 105775 04/12/2025 2:15 PM CDT [facility] [place] [phone] Jason Alvares MD [address] [place] [address] Chaya Castillo OTR [facility] 150 [place] [address] 04/16/2025 11:00 AM CDT [facility] [address] [place] [phone] Jason Alvares MD [address] [place] [address] Chaya Castillo OTR [facility] 150 [facility] [address] 04/23/2025 11:00 AM CDT Therapy Visit [address] [phone] Jason Alvares MD [address] [place] [address] Chaya Castillo OTR [address] [address] 04/30/2025 11:00 AM CDT Therapy Visit [address] [address] Jason Alvares MD [address] [place] [address] Chaya Castillo OTR [address] [address] 05/15/2025 12:30 PM CDT Office Visit [address] [phone] Marquise Hanley MD [address] [place] [address] 06/08/2025 9:15 AM CDT Office Visit [facility] Hepatology Clinic [address] [phone] Jignesh Mathias MD [address] [place] [address] 195885 11/05/2025 1:45 PM CDT Office Visit [facility] Dermatology Clinic [address] 3rd [place] [phone] Gavi Nieto PA-C Dermatology [address] [place] [address] documented as of this encounter Goals Goal [...] Total Score: 5 08/27/19 22 9:25 AM SIEBEL DEVELOPER documented as of this encounter Care Teams Farrowing Worker Relationship Specialty Start Date End Date Rio Jaquez MD [address] [place] [address]10 PCP - General Family Practice 12/02/10 07/13/24 Omar Carmona MD [address] [place] [address]88 PCP - General Family Medicine 07/14/24 Barry Kilpatrick MD [address] [place] [address] [id number] [place] [address] Neurology 07/19/14 Michelle Henderson I, RN Nurse Coordinator Neurology 07/19/14 Rio Jaquez MD [address] [place] [address] 86783 Family Practice 10/15/14 Jemima Jaramillo MD ops manager 11/20/14 Kelley Chin, TANIA [place] 910315 Nurse Coordinator Cardiology 11/04/15 Sydnee Saleem MD [address] [place] [address] 508 [place] [address] Cardiology 11/04/15 Karlene Moya MD [address] [place] [address] 944665 Ophthalmology 06/24/17 Wilbert Quintero OD [address] [place] [address] 523725 Optometry 06/24/17 Rod Gauthier DPM [address] [place] [address] 967355 B2B Account Executive Primary Podiatric Medicine 06/21/18 Nallely Hogue, RN Registered Nurse 02/20/19 11/23/22 Larisa Vargas, TANIA Specialty Reactor Operator Cardiology 04/18/19 03/06/22 Francisco Lott MD [address] [place] [address] 459575 Assigned Rheumatology Provider 05/31/20 12/13/21 Greg Ortega MD [address] [place] [address] 214595 Assigned Surgical Provider 06/23/20 12/06/21 Jan Mahmood MD [address] [place] [address] Gastroenterology 11/05/20 Brandt Quintana MD 1414 [place] [address] Resident 11/05/20 Jan Mahmood MD 516 [facility] 2A [place] [address] Assigned Gastroenterology Provider 12/01/20 Rio Jaquez MD [address] [address] Assigned PCP 11/17/20 09/30/24 Dom Eason MD [address] [place] [address]140 Internal Medicine 12/02/20 Jayla Plaza, RN Specialty Reactor Operator Hepatology 01/09/21 02/13/24 Sydnee Saleem MD 6550 [facility] [address] [place] [address] Assigned Heart and Vascular Provider 02/02/21 07/24/22 Phan Coello MD Assigned Neuroscience Provider 02/21/21 11/22/21 Cristian Barragan MD [address] [place] [address]19 Assigned Infectious Disease Provider 02/21/21 03/06/22 Dom Eason MD [address] [place] [address] Assigned Nephrology Provider 04/20/21 01/02/22 Jaimie Vernon, RN Specialty Reactor Operator Cardiology 10/28/21 Ruth Riddle DPM, Podiatry/Foot and Ankle Surgery [address] [place] [address] Assigned Musculoskeletal Provider 11/30/21 09/30/23 Luis Arrington MD [address] [place] [address]309 Assigned Neuroscience Provider 11/23/21 01/02/22 Jason Alvares MD [address] [place] [address] 295 [place] [address] Assigned Neuroscience Provider 01/03/22 05/15/22 Marquise Hanley MD [address] [place] [address]898 Endocrinology, Diabetes, and Metabolism 03/05/22 Vlad Ramey MD [address] [place] [address] 21914 Cardiovascular Disease 05/07/22 Joesph Crowe MD [address] [place] [address] 40585 Surgery 05/07/22 Luis Arrington MD [address] [place] [address] 04907 Assigned Neuroscience Provider 05/16/22 05/14/23 Michelle Padilla RN Specialty Reactor Operator Cardiology 07/03/22 Vlad Ramey MD [address] [place] [address] 0[address]84 Assigned Heart and Vascular Provider 07/25/22 05/28/23 Marquise Hanley MD [address] [place] [address] 38542 Assigned Endocrinology Provider 08/15/22 Dom Eason MD 717 [facility] 353 [place] [address] Assigned Nephrology Provider 11/28/22 02/19/23 Wagner Oliver MD 6401 [facility] [place] [address] Critical Care 12/15/22 Laura Epperson NP [address] [place] [address] 1932 [place] [address] Assigned Nephrology Provider 02/20/23 08/30/24 Thom Taveras MD [address] [place] [address], [address] [address] Assigned Cancer Care Provider 02/06/23 08/20/23 Joesph Crowe MD [address] [place] [address] 79124 Surgery 03/17/23 Joesph Crowe MD [address] [place] [address] 77669 Assigned Surgical Provider 04/03/23 09/30/24 Adonay Haq MD [address] [place] [address]35 Internal Medicine 06/14/23OctoberDenilson MD [address] [facility] [address] [place] [address] Assigned Heart and Vascular Provider 05/29/23 11/28/24 Jason Alvares MD [address] 945785 Assigned Neuroscience Provider 05/15/23 11/28/24 Ruth Riddle DPM, Podiatry/Foot and Ankle Surgery [address] [place] [address] Assigned Musculoskeletal Provider 10/22/23 Jignesh Mathias MD [address] [place] [address] 11068 Gastroenterology 09/25/24 Adonay Haq MD [address] [place] [address] 43048 Assigned PCP 10/01/24 12/28/24 Omar Carmona MD [address] [place] [address] 810505 Assigned PCP 12/29/24 Jason Alvares MD [address] 411875 Assigned Neuroscience Provider 12/29/24 Jignesh Mathias MD [address] [place] [address] 775105 Assigned Surgical Provider 12/29/24 Ayad Lopez, PhD LP [address] [place] [address] Assigned Behavioral Health Provider 02/28/25 Gavi Nieto PA-C [address] [place] [address] Physician Clinical Data Assistant Dermatology 03/19/25 documented as of this encounter
--- OUTSIDE RECORDS SUMMARY | 2025-03-24 20:27 | XMS_ITS | Encounter Summary ---
Author Organization [place] Address [address] [place] [address] 58276 Care Team Providers Care Director Asset Name Role Phone Rio Jaquez MD Primary Care Provider Barry Kilpatrick MD Unavailable Michelle Henderson I RN Unavailable [phone] Rio Jaquez MD Unavailable +[phone] Jemima Jaramillo MD Unavailable Unavai Kelley Bautista RN Unavailable [phone] Sydnee Saleem MD Unavailable +[phone] Karlene Moya MD Unavailable Wilbert Quintero OD Unavailable +[phone] Rod Gauthier DPM Unavailable Jan Mahmood MD Unavailable +[phone] Brandt Quintana MD Unavailable Jan Mahmood MD Unavailable +[phone] Rio Jaquez MD Unavailable +[phone] Dom Eason MD Unavailable Jayla Plaza RN Unavailable +[phone] Jaimie Vernon RN Unavailable Unavailable Ruth Riddle DPM, Podiatry /Foot and Ankle Surgery Unavailable Maqruise Hanley MD Unavailable +[phone] Vlad Ramey MD Unavailable +[phone] Joesph Crowe MD Unavailable +[phone] Luis Arrington MD Unavailable +[phone] Michelle Padilla RN Unavailable Unavaila ble Vlad Ramey MD Unavailable +[phone] Marquise Hanley MD Unavailable +[phone] Wagner Oliver MD Unavailable +[phone] Laura Epperson NP Unavailable +[phone] Thom Taveras MD Unavailable +[phone] Joesph Crowe MD Unavailable +[phone] Joesph Crowe MD Unavailable +[phone] Adonay Haq MD Unavailable +1- Denilson Srinivasan MD Unavailable + [phone] Jason Alvares MD Unavailable Rtuh Riddle DPM, Podiatry /Foot and Ankle Surgery Unavailable Omar Carmona MD Primary Care Provider +1- Jignesh Mathias MD Unavailable Adonay Haq MD Unavailable +1- Omar Carmona MD Unavailable +[phone] Jason Alvares MD Unavailable Jignesh Mathias MD Unavailable Ayad Lopez PhD LP Unavailable [phone] Gavi Nieto PA-C Unavailable Encounter Details Date Type Department Care Team (Late st Contact Info) Description 04/20/2023 [facility] Heart [address] [address] Michelle Padilla, RN Social History Tobacco Use Types Packs/Day [...] Answer Date Recorded PHQ-2 Score 2 03/15/2023 [facility] - [...] No 08/27/2021 Housing Stability Vital Sign Answer Eimr e Recorded In the last 12 months, [...] place to sleep or slept in a assisted (including now)? No 08/27/2021 Comments No Sex and Gender Information Value Date Recorded Sex Assigned at Female 09/12/2020 12:05 PM SWATCH MAKER Legal Sex Female 3:26 AM SWATCH MAKER Gender Identity Female 09/12/2020 12:05 PM SWATCH MAKER Sexual Orientation Straight 12/19/2021 10 :44 AM [...] suspected to have Coronavirus/COVID-19? No / Unsure 04/07/2023 3:24 PM CDT documented as of this encounter Plan of Treatment Upcoming Encounters Date Type Department Care Team (Late st Contact Info) Description 03/26/2025 11:00 AM CDT Therapy Visit [facility] 150 [place] [phone] Jason Alvares MD [address] [place] [address] 986935 Chaya Castillo, OTR [facility] 150 [place], [place] 921907 03/29/2025 10:30 AM CDT Therapy Visit [facility] [address] [facility] [address] [place] [phone] [place] [address] MICHAEL [address] [place], [place] 426437 04/02/2025 11:00 AM CDT Therapy Visit [facility] [address] [place] [phone] Jason Alvares MD [address] [place] [address] 787345 Chaya Castillo OTR [facility] 150 [place], [place] 847857 04/11/2025 12:30 PM CDT Office Visit [facility] [address] 4th [place] [phone] Omar Carmona MD [address] [place] [address] 04/12/2025 2:15 PM CDT Therapy Visit [facility] [address] [place] [address] Jason Alvares MD [address] [place] [address] Chaya Castillo, OTR [facility] 150 [place] [address] 04/16/2025 11:00 AM CDT Therapy Visit [facility] [address] [place] [address] Jason Alvares MD [address] [place] [address] Chaya Castillo, OTR [facility] 150 [place] [address] 04/23/2025 11:00 AM CDT Therapy Visit [facility] [place] [address] [place] [address] Jason Alvares MD [address] [place] [address] Chaya Castillo, OTR [facility] [address] [facility] [place] [address] 04/30/2025 11:00 AM CDT Therapy Visit [facility] [address] [place] [phone] Jason Alvares MD 420 [facility] 295 [place] [address] CastilloChaya, OTR [facility] 150 [place] [address] 05/15/2025 12:30 PM CDT Office Visit [address] [phone] Marquise Hanley MD [address] [place] [address] 06/08/2025 9:15 AM CDT Office Visit [facility] [address] [phone] Jignesh Mathias MD [address] [place] [address] 11/05/2025 1:45 PM CDT Office [facility] Dermatology [address] 3rd [place] [phone] Gavi Nieto, PA-C Dermatology [address] [place] [address] documented as of this encounter Goals Goal [...] as of this encounter Care Teams Director Asset Relationship Specialty Start Date End Date Rio Jaquez MD [address] [place] [address] 4 [place] [address] PCP - General Family Practice 12/02/10 07/13/24 Omar Carmona MD [address] [place] [address] 213565 PCP - General Family Medicine 07/14/24 Barry Kilpatrick MD [address] [place] [address] [id number] [place], [place] 531315 Neurology 07/19/14 Michelle Henderson I, RN Nurse Coordinator Neurology 07/19/14 Rio Jaquez MD [address] [place] [address] 189635 Family Practice 10/15/14 Jemima Jaramillo MD letter of credit document examiner 11/20/14 Kelley Chin, TANIA [facility] [address] [place] [address] 409805 Nurse Coordinator Cardiology 11/04/15 Sydnee Saleem MD [address] [place] [address] 508 [place], [place] 556685 Cardiology 11/04/15 Karlene Moya MD [address] [place] [address] 990645 Ophthalmology 06/24/17 Wilbert Quintero OD [address] [place] [address] 25993 Optometry 06/24/17 Rod Gauthier DPM [address] [place] [address] 60601 MD Elevator Installer Primary Podiatric Medicine 06/21/18 Jan Mahmood MD [address] [place] [address] Gastroenterology 11/05/20 Brandt Quintana MD [address] [place] [address] 64381 Resident 11/05/20 Jan Mahmood MD [address] [place] [address] 89403 Assigned Gastroenterology Provider 12/01/20 Rio Jaquez MD [address] [place] [address] 413375 Assigned PCP 11/17/20 09/30/24 Dom Eason MD [address] [phone] Internal Medicine 12/02/20 Jayla Plaza, RN Specialty Technical Staff Assistant Hepatology 01/09/21 02/13/24 Jaimie Vernon, TANIA Specialty Technical Staff Assistant Cardiology 10/28/21 Ruth Riddle DPM, Podiatry/Foot and Ankle Surgery [address] [place] [address] Assigned Musculoskeletal Provider 11/30/21 09/30/23 Marquise Hanley MD [address] [place] [address] 73453 Endocrinology, Diabetes, and Metabolism 03/05/22 Vlad Ramey MD [address] [place] [address] 855905 Cardiovascular Disease 05/07/22 Joesph Crowe MD [address] [place] [address] [phone] Surgery 05/07/22 Luis Arrington MD [address] [place] [address] 64094 Assigned Neuroscience Provider 05/16/22 05/14/23 Michelle Padilla RN Specialty Technical Staff Assistant Cardiology 07/03/22 Vlad Ramey MD [address] [place] [address] 38460 Assigned Heart and Vascular Provider 07/25/22 05/28/23 Marquise Hanley MD [address] [place] [address] 21120 Assigned Endocrinology Provider 08/15/22 Wagner Oliver MD [address] [address] Critical Care 12/15/22 Laura Epperson NP 717 [facility] 1932 [place] [address] Assigned Nephrology Provider 02/20/23 08/30/24 Thom Taveras MD [facility] [address] [place] [address] Assigned Cancer Care Provider 02/06/23 08/20/23 Joesph Crowe MD [address] [place] [address] 81844 Surgery 03/17/23 Joesph Crowe MD [address] [place] [address] 96654 Assigned Surgical Provider 04/03/23 09/30/24 Adonay Haq MD [address] [place] [address] 07694 Internal Medicine 06/14/23OctoberDenilson MD [address] [facility] [address] [place] [address] Assigned Heart and Vascular Provider 05/29/23 11/28/24 Jason Alvares MD 420 [facility] 295 [place] [address] Assigned Neuroscience Provider 05/15/23 11/28/24 Ruth Riddle DPM, Podiatry/Foot and Ankle Surgery [address] [place] [address] Assigned Musculoskeletal Provider 10/22/23 Jignesh Mathias MD [address] [place] [address] 22231 Gastroenterology 09/25/24 Adonay Haq MD [address] [place] [address] 411885 Assigned PCP 10/01/24 12/28/24 Omar Carmona MD [address] [place] [address] 797395 Assigned PCP 12/29/24 Jason Alvares MD [address] [place] [address] 803545 Assigned Neuroscience Provider 12/29/24 Jignesh Mathias MD [address] [place] [address] 812895 Assigned Surgical Provider 12/29/24 Ayad Lopez, PhD LP [address] [place] [address] 116725 Assigned Behavioral Health Provider 02/28/25 Gavi Nieto, PA-C [address] [place] [address] 234225 Physician Student Worker Dermatology 03/19/25 documented as of this encounter
--- OUTSIDE RECORDS SUMMARY | 2025-03-24 20:27 | XMS_ITS | Encounter Summary ---
Author Organization [place] Address [address] [place] [address] Care Team Providers Care Disassembler Name Role Phone Roi Jaquez MD Primary Care Provider + [phone] Barry Kilpatrick MD Unavailable Michelle Henderson RN Unavailable [phone] Rio Jaquez MD Unavailable +[phone] Jemima Jaramillo MD Unavailable Unavai Kelley Bautista RN Unavailable +[phone] Sydnee Saleem MD Unavailable +[phone] Karlene Moya MD Unavailable +[phone] Wilbert Quintero OD Unavailable +[phone] Rod GauthierM Unavailable +[phone] Nallely Hogue RN Unavailable Unavailable Larisa Vargas RN Unavailable Unavailable Rio Jaquez MD Unavailable +[phone] Ruth Yarbrough MD Unavailable +[phone] Francisco Lott MD Unavailable +[phone] Frida Grace MD Unavailable +[phone] Sydnee Saleem MD Unavailable +[phone] [...] Eason MD Unavailable Wagner Oliver MD Unavailable ZeenatLaura Ward MANAGER FEDERAL Unavailable +[phone] Thom Taveras MD Unavailable +[phone] Joesph Crowe MD Unavailable +[phone] Joesph Crowe MD Unavailable +[phone] Adonay Haq MD Unavailable +[phone] [facility] Campus[facility] MD Unavailable +[phone] Jason Alvares MD Unavailable Ruth Riddle DPM, Podiatry /Foot and Ankle Surgery Unavailable Omar Carmona MD Primary Care Provider [phone] Jignesh Mathias MD Unavailable Adonay Haq MD Unavailable +[phone] Omar Carmona MD Unavailable +[phone] Jason Alvares MD Unavailable Jignesh Mathias MD Unavailable Ayad Lopez PhD LP Unavailable +[phone] Gavi Nieto-C Unavailable +[phone] Encounter Details Date Type Department Care Team (Late st Contact Info) Description 06/14/2020 Records - [facility] CONVERSION Scan, Non-Provider [...] Sex Assigned at Female 09/12/2020 12:05 PM BOUNTY TRAPPER Legal Sex Female 3:26 AM BOUNTY TRAPPER Gender Identity Female 09/12/2020 12:05 PM BOUNTY TRAPPER Sexual Orientation Straight 12/19/2021 10 :44 AM CDT Occupation Industry Job Start Date Job End Date on disability for FMS Not on file Not on file Not on file COVID-19 Exposure Response Date Recorded In the last month, have you been in contact with someone who was confirmed or suspected to have Coronavirus / COVID-19? No / Unsure 06/12/2020 2:47 PM BOUNTY TRAPPER documented as of this encounter Plan of Treatment Upcoming Encounters Date Type Department Care Team (Late st Contact Info) Description 03/26/2025 11:00 AM CDT Therapy Visit [facility] 150 [place] [address] Jason Alvares MD [address] [place] [address] [phone] Chaya Castillo OTR FV [address] [address] 03/29/2025 10:30 AM CDT Therapy Visit [facility] [address] [place] [address] [place] [phone] [place] [address] 300 [place] [address] 04/02/2025 11:00 AM CDT Therapy Visit [facility] 150 [place] [phone] Jason Alvares MD [address] [place] [address] 100325 Chaya Castillo, OTR [facility] 150 [place] [address] 04/11/2025 12:30 PM CDT Office Visit [facility] [address] 4th [place] [address] Omar Carmona MD 909 [place] [address] 04/12/2025 2:15 PM CDT Therapy Visit [facility] [place] 150 [facility] [place] [address] Jason Alvares MD [address] [place] [address] Chaya Castillo OTR [facility] 150 [place] [address] 04/16/2025 11:00 AM CDT [facility] 150 [place] [address] Jason Alvares MD [address] [place] [address] Chaya Castillo [facility]TR [facility] 150 [place] [address] 04/23/2025 11:00 AM CDT Therapy [facility] 150 [place] [phone] Jason Alvares MD [address] [place] [address] Chaya Castillo OTR [facility] 150 [place] [address] 04/30/2025 11:00 AM CDT Therapy Visit [facility] 150 [place] [phone] Jason Alvares MD [address] [place] [address] Chaya Castillo, WESR [address] [address] 05/15/2025 12:30 PM CDT Office Visit [address] [phone] Marquise Hanley MD [address] [place] [address] 06/08/2025 9:15 AM CDT Office Visit [facility] [address] [place] [address] [phone] Jignesh Mathias MD [address] [place] [address] 272935 11/05/2025 1:45 PM CDT Office Visit [facility] [address] 3rd [place] [address] Gavi Nieto PA-C Dermatology [address] [place] [address] [phone] documented as of this encounter Goals Goal [...] documented as of this encounter Care Teams Disassembler Relationship Specialty Start Date End Date Rio Jaquez MD [address] [place] [address] 4 [place], [place] [phone] PCP - General Family Practice 12/02/10 07/13/24 Omar Carmona MD [address] [place] [address] 868485 PCP - General Family Medicine 07/14/24 Barry Kilpatrick MD [address] [place] [address] ND8029IA [place], [place] 502675 Neurology 07/19/14 Michelle Henderson RN Nurse Coordinator Neurology 07/19/14 Rio Jaquez MD [address] [place] [address] 4 [place], [place] 826365 Family Practice 10/15/14 Jemima Jaramillo MD medical equipment technician 11/20/14 Kelley Chin, TANIA [address] 144895 Nurse Coordinator Cardiology 11/04/15 Sydnee Saleem MD 420 [facility] 508 [place], [place] 377105 Cardiology 11/04/15 Karlene Moya MD [address] [place] [address] 260285 Ophthalmology 06/24/17 Wilbert Quintero, OD [address] [place] [address] 18553 Optometry 06/24/17 Rod Gauthier DPM [address] [place] [address] 90323 Granite Fabricator Primary Podiatric Medicine 06/21/18 Nallely Hogue, RN Registered Nurse 02/20/19 11/23/22 Larisa Vargas, TANIA Specialty Medical Unit Secretary Cardiology 04/18/19 03/06/22 Rio Jaquez MD [address] [place] [address] 917985 Assigned PCP 12/28/19 11/16/20 Ruth Yarbrough MD [address] [place] [address] 596325 Assigned Endocrinology Provider 05/31/20 09/28/20 Francisco Lott MD [address] [place] [address] 280455 Assigned Rheumatology Provider 05/31/20 12/13/21 Frida Grace MD [address] [place] [address] [address] [place] [address] Assigned Pediatric Specialist Provider 05/31/20 09/08/20 Sydnee Saleem MD 6550 [facility] [address] [place] [address] 7[address]30 Assigned Heart and Vascular Provider 05/31/20 10/22/20 Greg Ortega MD [address] [place] [address] 318075 Assigned Surgical Provider 06/23/20 12/06/21 Frida Grace MD [address] [facility] [place] [address] [place] [address] Assigned Surgical Provider 05/31/20 06/22/20 Jan Mahmood MD [address] [place] [address] 2A [place] [address] Gastroenterology 11/05/20 Brandt Quintana MD [address] [place] [address] 49059 Resident 11/05/20 Jan Mahmood MD [address] [place] [address] 2A [place] [address] Assigned Gastroenterology Provider 12/01/20 Rio Jaquez MD 9 [facility] 4 [place] [address] Assigned PCP 11/17/20 09/30/24 Dom Eason MD [address] [place] [address] 353 [place] [address] Internal Medicine 12/02/20 Jayla Plaza, RN Specialty Medical Unit Secretary Hepatology 01/09/21 02/13/24 Jayla Plaza, RN Specialty Medical Unit Secretary Hepatology 01/10/21 01/10/21 Sydnee Saleem MD [address] [address] Assigned Heart and Vascular Provider 02/02/21 07/24/22 Phan Coello MD Assigned Neuroscience Provider 02/21/21 11/22/21 Cristian Barragan MD 2945 [place] [address] Assigned Infectious Disease Provider 02/21/21 03/06/22 Dom Eason MD [address] [place] [address] Assigned Nephrology Provider 04/20/21 01/02/22 Jaimie Vernon, TANIA Specialty Medical Unit Secretary Cardiology 10/28/21 Ruth Riddle, DPM, Podiatry/Foot and Ankle Surgery [address] [facility] 300 [place] [address] Assigned Musculoskeletal Provider 11/30/21 09/30/23 Luis Arrington MD [address] [place] [address] 85917 Assigned Neuroscience Provider 11/23/21 01/02/22 Jason Alvares MD [address] [place] [address] 295 [place] [address] Assigned Neuroscience Provider 01/03/22 05/15/22 Marquise Hanley MD [address] [place] [address] 81819 Endocrinology, Diabetes, and Metabolism 03/05/22 Vlad Ramey MD [address] [place] [address] 55828 Cardiovascular Disease 05/07/22 Joesph Crowe MD [address] [place] [address] 50791 Surgery 05/07/22 Luis Arrington MD [address] [place] [address] 73084 Assigned Neuroscience Provider 05/16/22 05/14/23 Michelle Padilla RN Specialty Medical Unit Secretary Cardiology 07/03/22 Vlad Ramey MD [address] [place] [address] 76404 Assigned Heart and Vascular Provider 07/25/22 05/28/23 Marquise Hanley MD [address] [place] [address] 65450 Assigned Endocrinology Provider 08/15/22 Dom Eason MD [address] [place] [address] 353 [place] [address] Assigned Nephrology Provider 11/28/22 02/19/23 Wagner Oliver MD [address] [place] [address] Critical Care 12/15/22 Laura Epperson NP [address] [place] [address] 1932 [place] [address] Assigned Nephrology Provider 02/20/23 08/30/24 Thom Taveras MD [address] [facility] [place] [address] Assigned Cancer Care Provider 02/06/23 08/20/23 Joesph Crowe MD [address] [place] [address] 72206 Surgery 03/17/23 Joesph Crowe MD [address] [place] [address] 98106 Assigned Surgical Provider 04/03/23 09/30/24 Adonay Haq MD [address] [place] [address] 38463 Internal Medicine 06/14/23OctoberDenilson MD [address] [facility] [address] [place] [address] Assigned Heart and Vascular Provider 05/29/23 11/28/24 Jason Alvares MD [address] [place] [address] 295 [place] [address] Assigned Neuroscience Provider 05/15/23 11/28/24 Ruth Riddle DPM, Podiatry/Foot and Ankle Surgery [address] [place], [place] 243787 Assigned Musculoskeletal Provider 10/22/23 Jignesh Mathias MD [address] [place] [address] 54644 Gastroenterology 09/25/24 Adonay Haq MD [address] [place] [address] 169005 Assigned PCP 10/01/24 12/28/24 Omar Carmona MD [address] [place] [address] 105115 Assigned PCP 12/29/24 Jason Alvares MD [address] [place] [address] 768645 Assigned Neuroscience Provider 12/29/24 Jignesh Mathias MD [address] [place] [address] 189925 Assigned Surgical Provider 12/29/24 Ayad Lopez, PhD LP [address] [place] [address] 228765 Assigned Behavioral Health Provider 02/28/25 Gavi Nieto PA-C [address] [place] [address] 008895 Physician Rotary Cutter Feeder Dermatology 03/19/25 documented as of this encounter
--- OUTSIDE RECORDS SUMMARY | 2025-03-24 20:27 | XMS_ITS | Encounter Summary ---
Author Organization [facility] Address [address] [place] [address] Care Team Providers Care Pusher Runner Name Role Phone Rio Jaquez MD Primary Care Provider Barry Kilpatrick MD Unavailable Michelle Henderson I RN Unavailable Rio Jaquez MD Unavailable [phone] Jemima Jaramillo MD Unavailable Unavai Kelley Bautista RN Unavailable [phone] Sydnee Saleem MD Unavailable +[phone] Karlene Moya MD Unavailable Wilbert Quintero OD Unavailable +[phone] Rod Gauthier DPM Unavailable Jan Mahmood MD Unavailable +[phone] Brandt Quintana MD Unavailable Jan Mahmood MD Unavailable +[phone] Rio Jaquez MD Unavailable +[phone] Dom Eason MD Unavailable Jayla Plaza [...] Unavailable +[phone] Wagner Oliver MD Unavailable +[phone] Laura Epperson NP Unavailable +[phone] Thom Taveras MD Unavailable +[phone] Joesph Crowe MD Unavailable +[phone] Joesph Crowe MD Unavailable [phone] Adonay Haq MD Unavailable +1- Denilson Srinivasan MD Unavailable + [phone] Jason Alvares MD Unavailable Ruth Riddle DPM, Podiatry /Foot and Ankle Surgery Unavailable Omar Carmona MD Primary Care Provider +1- Jignesh Mathias MD Unavailable Adonay Haq MD Unavailable +1- Omar Carmona MD Unavailable +[phone] Jason Alvares MD Unavailable Jignesh Mathias MD Unavailable Ayad Lopez PhD LP Unavailable [phone] Gavi Nieto PA-C Unavailable Encounter Details Date Type Department Care Team (Late st Contact Info) Description 03/15/2023 [facility] Medical Advice [facility] Endocrinology Clinic [address] 3rd [place] [address] Shara Payne, RN Social History [...] any clubs o r organizations such as episcopalian groups, unions, fraternal or athletic groups, or [...] Answer Date Recorded PHQ-2 Score 2 03/15/2023 [facility] of Occupat ional Health [...] place to sleep or slept in a usp (including now)? No 08/27/2021 Comments No Sex and Gender Information Value Date Recorded Sex Assigned at Female 09/12/2020 12:05 PM TILLER WORKER Legal Sex Female 3:26 AM TILLER WORKER Gender Identity Female 09/12/2020 12:05 PM TILLER WORKER Sexual Orientation Straight 12/19/2021 10 :44 AM CDT Occupation Industry Job Start Date Job End Date on disability for FMS Not on file Not on file Not on file disabled Not on file Not on file Not on file COVID-19 Exposure Response Date Recorded In the last 10 days, have richard u been in contact with someone who was confirmed or suspected to have Coronavirus/COVID-19? No / Unsure 03/17/2023 3:01 PM CDT documented as of this encounter Miscellaneous Notes * Telephone Encounter - Nithya Craft - 03/15/2023 4:29 PM CDT We tried to submit a prior auth today, but received confirmation stating no pa required. She can proceed with infusion as scheduled. Nithya Craft Infusion Manager Fine documented in this encounter Plan of Treatment Upcoming Encounters Date Type Department Care Team (Late st Contact Info) Description 03/26/2025 11:00 AM CDT Therapy Visit [address] [phone] Jason Alvares MD 420 [facility] 295 [place], [place] [address] Chaya Castillo, LETA [facility] 150 [place] [address] 03/29/2025 10:30 AM CDT Therapy Visit [facility] Specialty [place] [address] [place] [phone] [place] [address] 300 [place], [place] [address] 04/02/2025 11:00 AM CDT Therapy Visit [facility] [place] [address] [place] [phone] Jason Alvares MD [address] [place] [address] Chaya Castillo OTR [facility] 150 [place] [address] 04/11/2025 12:30 PM CDT Office Visit [facility] Primary Care Clinic [address] 4th [place] [phone] Omar Carmona MD [address] [place] [address] 04/12/2025 2:15 PM CDT Therapy Visit [facility] [place] [address] Jason Alvares MD [address] [place] [address] Chaya Castillo, [facility] 150 [facility] [place] [address] 04/16/2025 11:00 AM CDT Therapy Visit [facility] 150 [facility] [place] [address] Jason Alvares MD [address] [place] [address] Chaya Castillo, OTR [facility] 150 [facility] [place] [address] 04/23/2025 11:00 AM CDT Therapy Visit [facility] 150 [facility] [place] [address] Jason Alvares MD [address] [place] [address] Chaya Castillo, OTR [facility] 150 [place] [address] 04/30/2025 11:00 AM CDT Therapy Visit [facility] [place] [facility] 150 [place] [address] Jason Alvares MD [address] [place] [address] Chaya Castillo OTR [facility] 150 [place] [address] 05/15/2025 12:30 PM CDT Office Visit [address] [phone] Marquise Hanley MD [address] [place] [address] 06/08/2025 9:15 AM CDT Office Visit [facility] Hepatology Clinic [address] [phone] Jignesh Mathias MD [address] [place] [address] 11/05/2025 1:45 PM CDT Office Visit [facility] Dermatology Clinic [address]rd [place] [phone] Gavi Nieto PA-C Dermatology [address] [place] [address] documented as of this encounter Goals Goal [...] documented as of this encounter Care Teams Pusher Runner Relationship Specialty Start Date End Date Rio Jaqeuz MD [address] [place] [address] PCP - General Family Practice 12/02/10 07/13/24 Omar Carmona MD [address] [place] [address] [phone] PCP - General Family Medicine 07/14/24 Barry Kilpatrick MD [address] [place] [address] [id number] [place], [place] 839835 Neurology 07/19/14 Michelle Henderson RN Nurse Coordinator Neurology 07/19/14 Rio Jaquez MD [address] [place] [address] 403435 Family Practice 10/15/14 Jemima Jaramillo MD apparel merchandiser 11/20/14 Kelley Chin, TANIA [address] [address] Nurse Coordinator Cardiology 11/04/15 Sydnee Saleem MD [address] [place] [address] 508 [place], [place] [phone] Cardiology 11/04/15 Karlene Moya MD [address] [place] [address] 160635 MD Ophthalmology 06/24/17 Wilbert Quintero, OD [address] [place] [address] [phone] Optometry 06/24/17 Rod Gauthier DPM [address] [place] [address] [phone] Warehouse Delivery Manager Primary Podiatric Medicine 06/21/18 Jan Mahmood MD [address] [place] [address] 2A [place], [place] [phone] Gastroenterology 11/05/20 Brandt Quintana MD [address] [place] [address] Resident 11/05/20 Jan Mahmood MD [address] [place] [address] 2A [place] [address] Assigned Gastroenterology Provider 12/01/20 Rio Jaquez MD [address] [place] [address] 4 [place], [place] 730855 Assigned PCP 11/17/20 09/30/24 Dom Eason MD [address] [place] [address] Internal Medicine 12/02/20 Jayla Plaza, RN Specialty Psychology Clinician Hepatology 01/09/21 02/13/24 Jaimie Vernon, TANIA Specialty Psychology Clinician Cardiology 10/28/21 Ruth Riddle DPM, Podiatry/Foot and Ankle Surgery [address] [address] Assigned Musculoskeletal Provider 11/30/21 09/30/23 Marquise Hanley MD [address] [place] [address] Endocrinology, Diabetes, and Metabolism 03/05/22 Vlad Ramey MD [address] [place] [address] [phone] Cardiovascular Disease 05/07/22 Joesph Crowe MD [address] [place] [address] 17851 Surgery 05/07/22 Luis Arrington MD [address] [place] [address] 96109 Assigned Neuroscience Provider 05/16/22 05/14/23 Michelle Padilla RN Specialty Psychology Clinician Cardiology 07/03/22 Vlad Ramey MD [address] [place] [address] 16016 Assigned Heart and Vascular Provider 07/25/22 05/28/23 Marquise Hanley MD [address] [place] [address] Assigned Endocrinology Provider 08/15/22 Wagner Oliver MD [address] [place] [address] Critical Care 12/15/22 Laura Epperson NP 717 [facility] 1932 [place] [address] Assigned Nephrology Provider 02/20/23 08/30/24 Thom Taveras MD [address] [place] [address], [address] [address] Assigned Cancer Care Provider 02/06/23 08/20/23 Joesph Crowe MD [address] [place] [address] [phone] Surgery 03/17/23 Joesph Crowe MD [address] [place] [address] 79012 Assigned Surgical Provider 04/03/23 09/30/24 Adonay Haq MD [address] [place] [address] Internal Medicine 06/14/23OctoberDenilson MD [address] [facility] [address] [address] Assigned Heart and Vascular Provider 05/29/23 11/28/24 Jason Alvares MD 420 [facility] 295 [place], [place] 695145 Assigned Neuroscience Provider 05/15/23 11/28/24 Ruth Riddle, DPM, Podiatry/Foot and Ankle Surgery [address] [place] [address] Assigned Musculoskeletal Provider 10/22/23 Jignesh Mathias MD [address] [place] [address] [phone] Gastroenterology 09/25/24 Adonay Haq MD [address] [place] [address] 617015 Assigned PCP 10/01/24 12/28/24 Omar Carmona MD [address] [place] [address] [phone] Assigned PCP 12/29/24 Jason Alvares MD 420 [facility] 295 [place], [place] 532785 Assigned Neuroscience Provider 12/29/24 Jignesh Mathias MD [address] [place] [address] 827565 Assigned Surgical Provider 12/29/24 Ayad Lopez, PhD LP 6 [place] [address] Assigned Behavioral Health Provider 02/28/25 Gavi Nieto PA-C 500 [place], [place] [phone] Physician Assistant Front Office Manager Dermatology 03/19/25 documented as of this encounter
--- OUTSIDE RECORDS SUMMARY | 2025-03-24 20:27 | XMS_ITS | Encounter Summary ---
Author Organization [facility] Address [address] [place] [address] Care Team Providers Care Affiliate Marketing Coordinator Name Role Phone Rio Jaquez MD Primary Care Provider Barry Kilpatrick MD Unavailable Michelle Henderson I RN Unavailable [phone] Rio Jaquez MD Unavailable [phone] Jemima Jaramillo MD Unavailable Unavai Kelley Bautista RN Unavailable [phone] Sydnee Saleem MD Unavailable [phone] Karlene Moya MD Unavailable [phone] Wilbert Quintero OD Unavailable +[phone] Rod Gauthier DPM Unavailable Jan Mahmood MD Unavailable [phone] Brandt Quintana MD Unavailable Jan Mahmood MD Unavailable +[phone] Rio Jaquez MD Unavailable [phone] Dom Eason MD Unavailable Jayla Plaza RN [...] Unavailable +[phone] Wagner Oliver MD Unavailable [phone] Laura Epperson NP Unavailable +[phone] Thom Taveras MD Unavailable +[phone] Joesph Crowe MD Unavailable [phone] Joesph Crowe MD Unavailable [phone] Adonay Haq MD Unavailable +1- Denilson Srinivasan MD Unavailable + [phone] Jason Alvares MD Unavailable Ruth Riddle DPM, Podiatry /Foot and Ankle Surgery Unavailable Omar Carmona MD Primary Care Provider +1- Jignesh Mathias MD Unavailable Adonay Haq MD Unavailable +1- Omar Carmona MD Unavailable +[phone] Jason Alvares MD Unavailable Jignesh Mathias MD Unavailable Ayad Lopez PhD LP Unavailable Gavi Nieto PA-C Unavailable Encounter Details Date Type Department Care Team (Late st Contact Info) Description 05/10/2023 MyC Medical Advice [facility] Primary Care Clinic [address] 4th [place] [address] Rio Jaquez MD [address] [place] [address] 4 [place] [address] Social History Tobacco Use Types [...] than three times a week 08/27/2021 Attends [employer] Not on file 08/27 Do you belong to any clubs o r organizations such as roman catholic groups, unions, fraternal or athletic groups, [...] Answer Date Recorded PHQ-2 Score 2 03/15/2023 [facility] of Occupat ional Health - Occupational Stress [...] place to sleep or slept in a care home (including now)? No 08/27/2021 Adolescent Education Answer Date Record ed Getting School Help Needed Not on file 05/08 Comments No Sex and Gender Information Value Date Recorded Sex Assigned at Female 09/12/2020 12:05 PM RAILS DEVELOPER Legal Sex Female 3:26 AM RAILS DEVELOPER Gender Identity Female 09/12/2020 12:05 PM RAILS DEVELOPER Sexual Orientation Straight 12/19/2021 10 :44 [...] suspected to have Coronavirus/COVID-19? No / Unsure 05/10/2023 8:06 AM CDT documented as of this encounter Plan of Treatment Upcoming Encounters Date Type Department Care Team (Late st Contact Info) Description 03/26/2025 11:00 AM CDT Therapy Visit [address] [phone] Jason Alvares MD 420 [place] [address] Chaya Castillo, OTR [address] [id number] 03/29/2025 10:30 AM CDT Therapy Visit [facility] Specialty Center [address] [place] [phone] [place] [address] 300 [place] [address] 04/02/2025 11:00 AM CDT Therapy Visit [address] [phone] Jason Alvares MD [address] [place] [phone] Chaya Castillo OTR [facility] 150 [facility] [place] [address] 04/11/2025 12:30 PM CDT Office Visit [facility] Primary Care Clinic [address] 4th [place] [phone] Omar Carmona MD [address] [place] [address] 04/12/2025 2:15 PM CDT [facility] 150 [place] [phone] Jason Alvares MD [address] [place] [address] Chaya Castillo OTR [facility] 150 [facility] [address] 04/16/2025 11:00 AM CDT [facility] [place] [phone] Jason Alvares MD [address] [place] [address] Chaya Castillo OTR [facility] 150 [place] [address] 04/23/2025 11:00 AM CDT Therapy [facility] 150 [place] [phone] Jason Alvares MD [address] [place] [address] Chaya Castillo, OTR [facility] 150 [place] [address] 04/30/2025 11:00 AM CDT Therapy Visit [facility] Rehabilitation Services [facility] 150 [place] [phone] Jason Alvares MD [address] [place] [address] Chaya Castillo OTR [facility] 150 [place] [address] 05/15/2025 12:30 PM CDT Office Visit [address] [phone] Marquise Hanley MD [address] [place] [address] 06/08/2025 9:15 AM CDT Office Visit [facility] Hepatology Clinic [address] [phone] Jignesh Mathias MD [address] [place] [address] 11/05/2025 1:45 PM CDT Office Visit [facility] Dermatology Clinic [address] 3rd [place] [address] Gavi Nieto PA-C Dermatology [address] [place] [address] [phone] documented as of this encounter Goals Goal [...] documented as of this encounter Care Teams Affiliate Marketing Coordinator Relationship Specialty Start Date End Date Rio Jaquez MD [address] [place] [address] [phone] PCP - General Family Practice 12/02/10 07/13/24 Omar Carmona MD [address] [place] [address] [phone] PCP - General Family Medicine 07/14/24 Barry Kilpatrick MD [address] [place] [address] [id number] [place], [place] [phone] Neurology 07/19/14 Michelle Henderson RN Nurse Coordinator Neurology 07/19/14 Rio Jaquez MD [address] [place] [address] 770845 Family Practice 10/15/14 Jemima Jaramillo MD pharmacognosist 11/20/14 Kelley Chin, TANIA [address] [phone] Nurse Coordinator Cardiology 11/04/15 Sydnee Saleem MD [address] [place] [address] 508 [place] [address] Cardiology 11/04/15 Karlene Moya MD 6 [place] [address] MD Ophthalmology 06/24/17 Wilbert Quintero, OD 9 [place], [place] 128635 Optometry 06/24/17 Rod Gauthier DPM [address] [place] [address] [phone] MD Rotary Engine Assembler Primary Podiatric Medicine 06/21/18 Jan Mahmood MD [address] [place] [address] 2A [place] [address] MD Gastroenterology 11/05/20 Brandt Quintana MD [address] [place] [address] Resident 11/05/20 Jan Mahmood MD [address] [place] [address]29 Assigned Gastroenterology Provider 12/01/20 Rio Jaquez MD 909 [facility] [address] [place] [address] [phone] Assigned PCP 11/17/20 09/30/24 Dom Eason MD 717 [facility] [address] 353 [place], [place] 144874 Internal Medicine 12/02/20 Jayla Plaza, RN Specialty Attending Ambulatory Care Hepatology 01/09/21 02/13/24 Jaimie Vernon, RN Specialty Attending Ambulatory Care Cardiology 10/28/21 Ruth Riddle, DPM, Podiatry/Foot and Ankle Surgery [address] [place] [address] Assigned Musculoskeletal Provider 11/30/21 09/30/23 Marquise Hanley MD [address] [place] [address] [phone] Endocrinology, Diabetes, and Metabolism 03/05/22 Vlad Ramey MD [address] [place] [address] [phone] Cardiovascular Disease 05/07/22 Joesph Crowe MD [address] [place] [address] [phone] Surgery 05/07/22 Luis Arrington MD [address] [place] [address] 183255 Assigned Neuroscience Provider 05/16/22 05/14/23 Michelle Padilla RN Specialty Attending Ambulatory Care Cardiology 07/03/22 Vlad Ramey MD [address] [place] [address] [phone] Assigned Heart and Vascular Provider 07/25/22 05/28/23 Marquise Hanley MD [address] [place] [address] 000595 Assigned Endocrinology Provider 08/15/22 Wagner Oliver MD [address] [place] [address] Critical Care 12/15/22 Laura Epperson NP 717 [facility] 1932 [place] [address] Assigned Nephrology Provider 02/20/23 08/30/24 Thom Taveras MD [facility] [address] R[address] [place] [address] Assigned Cancer Care Provider 02/06/23 08/20/23 Joesph Crowe MD [address] [place] [address] 0[address]2 Surgery 03/17/23 Joesph Crowe MD [address] [place] [address] 34449 Assigned Surgical Provider 04/03/23 09/30/24 Adonay Haq MD [address] [place] [address] 18457 Internal Medicine 06/14/23OctoberDenilson MD [address] [facility] [address] [place] [address] Assigned Heart and Vascular Provider 05/29/23 11/28/24 Jason Alvares MD 420 [facility] 295 [place] [address] Assigned Neuroscience Provider 05/15/23 11/28/24 Ruth Riddle DPM, Podiatry/Foot and Ankle Surgery [address] [place] [address] Assigned Musculoskeletal Provider 10/22/23 Jignesh Mathias MD [address] [place] [address] 20662 Gastroenterology 09/25/24 Adonay Haq MD [address] [place] [address] [phone] Assigned PCP 10/01/24 12/28/24 Omar Carmona MD [address] [place] [address] [phone] Assigned PCP 12/29/24 Jason Alvares MD [address] [place] [address] 419275 Assigned Neuroscience Provider 12/29/24 Jignesh Mathias MD [address] [place] [address] 990245 Assigned Surgical Provider 12/29/24 Ayad Lopez, PhD LP [address] [place] [address] [phone] Assigned Behavioral Health Provider 02/28/25 Gavi Nieto PANavinC [address] [place] [address] 199025 Physician Identity Management Consultant Dermatology 03/19/25 documented as of this encounter
--- OUTSIDE RECORDS SUMMARY | 2025-03-24 20:27 | XMS_ITS | Encounter Summary ---
Author Organization [place] Address [address] [place] [address] Care Team Providers Care Angiography Technologist Name Role Phone Rio Jaquez MD Primary Care Provider Barry Kilpatrick MD Unavailable Michelle Henderson RN Unavailable [phone] Rio Jaquez MD Unavailable [phone] Jemima Jaramillo MD Unavailable Unavai Kelley Bautista RN Unavailable +[phone] Sydnee Saleem MD Unavailable +[phone] Karlene Moya MD Unavailable +[phone] Wilbert Quintero OD Unavailable [phone] Rod Gauthier DPM Unavailable +[phone] Nallely Hogue RN Unavailable Unavailable Larisa Vargas RN Unavailable Unavailable Francisco Lott MD Unavailable +[phone] Greg Ortega MD Unavailable +[phone] Jan Mahmood MD Unavailable [phone] Brandt Quintana MD Unavailable +[phone] Jan Mahmood MD Unavailable Rio Jaquez [...] MD Unavailable Joesph Crowe MD Unavailable [phone] Joesph Crowe MD Unavailable +[phone] Adonay Haq MD Unavailable [phone] Denilson Srinivasan MD Unavailable +[phone] Jason Alvares MD Unavailable Ruth RiddleM, Podiatry /Foot and Ankle Surgery Unavailable Omar Carmona MD Primary Care Provider [phone] Jignesh Mathias MD Unavailable Adonay Haq MD Unavailable [phone] Omar Carmona MD Unavailable [phone] Jason Alvares MD Unavailable Jignesh Mathias MD Unavailable Ayad Lopez PhD LP Unavailable +[phone] Gavi Nieto-C Unavailable +[phone] Encounter Details Date Type Department Care Team (Late st Contact Info) Description 11/14/2021 [facility] [address] [address] [facility] Social History Tobacco Use Types Packs/Day Years [...] any clubs o r organizations such as alevism groups, unions, [employer] or athletic groups, or school groups? No [...] Answer Date Recorded PHQ-2 Score 2 08/27/2021 [facility] - Occupational [...] place to sleep or slept in a retirement (including now)? No 08/27/2021 Comments No Sex and Gender Information Value Date Recorded Sex Assigned at Female 09/12/2020 12:05 PM HEALTH CARE AIDE Legal Sex Female 3:26 AM HEALTH CARE AIDE Gender Identity Female 09/12/2020 12:05 PM HEALTH CARE AIDE Sexual Orientation Straight 12/19/2021 10 :44 [...] 03/26/2025 11:00 AM CDT Therapy Visit [address] [address] Jason Alvares MD 420 [facility] EMERGENC[facility]PARTMENT 295 [place], [place] 580975 Chaya aCstillo OTR [facility] 150 [place], [place] 618817 03/29/2025 10:30 AM CDT Therapy Visit [facility] [address] [place] [address] [place] [phone] [place] [address] [address] [address] [place], [place] [address] 04/02/2025 11:00 AM CDT Therapy Visit [facility] 150 [place] [phone] Jason Alvares MD [address] [place] [address] Chaya Castillo OTR [address] [address] 04/11/2025 12:30 PM CDT Office Visit [facility] Primary [facility] Clinic [address] 4th [place] [phone] Omar Carmona MD [address] [place] [address] 792015 04/12/2025 2:15 PM CDT Therapy Visit [address] [phone] Jason Alvares MD [address] [place] [address] Chaya Castillo, OTR [address] [address] 04/16/2025 11:00 AM CDT Therapy Visit [address] [phone] Jason Alvares MD [address] [place] [address] Chaya Castillo, OTR [facility] 150 [facility] [place] [address] 04/23/2025 11:00 AM CDT Therapy Visit [facility] 150 [facility] [place] [address] Jason Alvares MD [address] [place] [address] Chaya Castillo [facility]TR [facility] 150 [place] [address] 04/30/2025 11:00 AM CDT Therapy Visit [facility] 150 [facility] [place] [address] Jason Alvares MD [address] [place] [address] Chaya Castillo OTR [facility] 150 [place] [address] 05/15/2025 12:30 PM CDT Office Visit [address] [phone] Marquise Hanley MD [address] [place] [address] 06/08/2025 9:15 AM CDT Office Visit [facility] Hepatology Clinic [address] [phone] Jignesh Mathias MD [address] [place] [address] 11/05/2025 1:45 PM CDT Office Visit [facility] Dermatology Clinic [address] 3rd [place] [phone] Gavi Nieto PA-C Dermatology [address] [place] [address] documented as of this encounter Goals Goal [...] Total Score: 5 08/27/19 22 9:25 AM HEALTH CARE AIDE documented as of this encounter Care Teams Angiography Technologist Relationship Specialty Start Date End Date Rio Jaquez MD [address] [place] [address] PCP - General Family Practice 12/02/10 07/13/24 Omar Carmona MD [address] [place] [address] [phone] PCP - General Family Medicine 07/14/24 Barry Kilpatrick MD [address] [place] [address] [id number] [place], [place] 659175 Neurology 07/19/14 Michelle Henderson I, RN Nurse Coordinator Neurology 07/19/14 Rio Jaquez MD [address] [place] [address] 466865 Family Practice 10/15/14 Jemima Jaramillo MD home assessment nurse 11/20/14 Kelley Chin, TANIA [facility] 909 [place], [place] 259455 Nurse Coordinator Cardiology 11/04/15 Sydnee Saleem MD [address] [place] [address] 508 [place], [place] 379405 Cardiology 11/04/15 Karlene Moya MD [address] [place] [address] 142955 Ophthalmology 06/24/17 Wilbert Quintero, OD [address] [place] [address] 101875 Optometry 06/24/17 Rod Gauthier DPM [address] [place] [address] 113665 Rate Clerk Primary Podiatric Medicine 06/21/18 Nallely Hogue, RN Registered Nurse 02/20/19 11/23/22 Larisa Vargas, TANIA Special[facility] Whizzer Hand Cardiology 04/18/19 03/06/22 Francisco Lott MD [address] [place] [address] 639715 Assigned Rheumatology Provider 05/31/20 12/13/21 Greg Ortega MD [address] [place] [address] 166965 Assigned Surgical Provider 06/23/20 12/06/21 Jan Mahmood MD 516 [facility] 2A [place] [address] Gastroenterology 11/05/20 Brandt Quintana MD 1414 [place] [address] Resident 11/05/20 Jan Mahmood MD [facility] 2A [place] [address] Assigned Gastroenterology Provider 12/01/20 Rio Jaquez MD 909 [facility] 4 [place], [place] 403955 Assigned PCP 11/17/20 09/30/24 Dom Eason MD 717 [facility] 353 [place], [place] 611534 Internal Medicine 12/02/20 Jayla Plaza, RN Specialty Whizzer Hand Hepatology 01/09/21 02/13/24 Sydnee Saleem MD [address] [place] [address] Assigned Heart and Vascular Provider 02/02/21 07/24/22 Phan Coello MD Assigned Neuroscience Provider 02/21/21 11/22/21 Cristian Barragan MD 2945 [place] [address] Assigned Infectious Disease Provider 02/21/21 03/06/22 Dom Eason MD 717 [facility] 353 [place] [address] Assigned Nephrology Provider 04/20/21 01/02/22 Jaimie Vernon, RN Specialty Whizzer Hand Cardiology 10/28/21 Ruth Riddle DPM, Podiatry/Foot and Ankle Surgery [address] [facility] 300 [place] [address] Assigned Musculoskeletal Provider 11/30/21 09/30/23 Luis Arrington MD [address] [place] [address] Assigned Neuroscience Provider 11/23/21 01/02/22 Jason Alvares MD [address] [place] [address] 295 [place] [address] Assigned Neuroscience Provider 01/03/22 05/15/22 Marquise Hanley MD [address] [place] [address] Endocrinology, Diabetes, and Metabolism 03/05/22 Vlad Ramey MD [address] [place] [address] 24528 Cardiovascular Disease 05/07/22 Joesph Crowe MD [address] [place] [address] Surgery 05/07/22 Luis Arrington MD [address] [place] [address] Assigned Neuroscience Provider 05/16/22 05/14/23 Michelle Padilla, RN Specialty Whizzer Hand Cardiology 07/03/22 Vlad Ramey MD 909 [place] [address] Assigned Heart and Vascular Provider 07/25/22 05/28/23 Marquise Hanley MD 909 [place] [address] Assigned Endocrinology Provider 08/15/22 Dom Eason MD 717 [facility] [address] 353 [place] [address] Assigned Nephrology Provider 11/28/22 02/19/23 Wagner Oliver MD [address] [place] [address] Critical Care 12/15/22 Laura Epperson, HOSPITALITY MANAGER 717 [facility] 1932 [place] [address] Assigned Nephrology Provider 02/20/23 08/30/24 Thom Taveras MD [address] [place] [address] Assigned Cancer Care Provider 02/06/23 08/20/23 Joesph Crowe MD 9 [place] [address] Surgery 03/17/23 Joesph Crowe MD 9 [place] [address] Assigned Surgical Provider 04/03/23 09/30/24 Adonay Haq MD [address] [place] [address] Internal Medicine 06/14/23October, Denilson Jackson MD [address] [facility] [address] [place] [address] Assigned Heart and Vascular Provider 05/29/23 11/28/24 Jason Alvares MD 420 [facility] EMERGENCY [facility]PARTMENT 295 [place] [address] Assigned Neuroscience Provider 05/15/23 11/28/24 Ruth Riddle DPM, Podiatry/Foot and Ankle Surgery [address] [facility] 300 [place], [place] 890927 Assigned Musculoskeletal Provider 10/22/23 Jignesh Mathias MD [address] [place] [address] Gastroenterology 09/25/24 Adonay Haq MD [address] [place] [address]995 Assigned PCP 10/01/24 12/28/24 Omar Carmona MD [address] [place] [address] Assigned PCP 12/29/24 Jason Alvares MD [address] [place] [address] 295 [place], [place] 491285 Assigned Neuroscience Provider 12/29/24 Jignesh Mathias MD [address] [place] [address]51 Assigned Surgical Provider 12/29/24 Ayad Lopez, PhD LP [address] [place] [address] 389005 Assigned Behavioral Health Provider 02/28/25 Gavi Nieto PANavinC [address] [place] [address] 871965 Physician Compotype Operator Dermatology 03/19/25 documented as of this encounter
--- OUTSIDE RECORDS SUMMARY | 2025-03-24 20:27 | XMS_ITS | Encounter Summary ---
Author Organization [place] Address [address] [place] [address] Care Team Providers Care Sand Slinger Operator Name Role Phone Rio Jaquez MD Primary Care Provider + [phone] Barry Kilpatrick MD Unavailable Michelle Henderson RN Unavailable [phone] Rio Jaquez MD Unavailable [phone] Jemima Jaramillo MD Unavailable Unavai Kelley Bautista RN Unavailable [phone] Sydnee Saleem MD Unavailable [phone] Karlene Moya MD Unavailable [phone] Wilbert Quintero OD Unavailable [phone] Rod GauthierM Unavailable +[phone] Nallely Hogue RN Unavailable Unavailable Larisa Vargas RN Unavailable Unavailable Rio Jaquez MD Unavailable [phone] Ruth Yarbrough MD Unavailable [phone] Francisco Lott MD Unavailable [phone] Frida Grace MD Unavailable [phone] Sydnee Saleem MD Unavailable [phone] Vlad Ramey MD Unavailable [phone] Joepsh Crowe MD Unavailable Luis Arrington MD Unavailable Michelle Padilla RN Unavailable Unavaila Vlad Rodriguez MD Unavailable Marquise Hanley MD Unavailable Dom Eason MD Unavailable Wagner Oliver MD Unavailable Zeenat Laurachloe Hopper NP Unavailable [phone] Thom Taveras MD Unavailable [phone] Joesph Crowe MD Unavailable +[phone] Joesph Crowe MD Unavailable [phone] Adonay Haq MD Unavailable [phone] [facility] Hospital[facility] MD Unavailable [phone] [facility] MD Unavailable Ruth Riddle DPM, Podiatry /Foot and Ankle Surgery Unavailable Omar Carmona MD Primary Care Provider [phone] Jignesh Mathias MD Unavailable Adonay Haq MD Unavailable [phone] Omar bragg MD Unavailable [phone] Jason Alvares MD Unavailable Jignesh Mathias MD Unavailable Ayad Lopez PhD Unavailable [phone] Gavi Nieto-C Unavailable [phone] Reason for Visit * Reason Onset Date Comments Refill Request 05/03/2020 Encounter Details Date Type Department Care Team (Late st Contact Info) Description 05/03/2020 MyC Medical Advice [facility] Primary Care Clinic [address] [address] Rio Jaquez MD [address] [place] [address] Refill Request Social History Tobacco Use Types Packs/Day Years Used Date Smoking Tobacco: Every Day Cigarettes 1 42.6 Started: 08/09/1982 Smokeless Tobacco: Never Alcohol Use Standard Drinks/Week Comments Yes 0 (1 standard drink = 0.6 oz pur e alcohol) occ PHQ-2 Answer Date Recorded PHQ-2 Score 2 02/22/2020 Comments No Sex and Gender Information Value Date Recorded Sex Assigned at Female 09/12/2020 12:05 PM PROFESSOR OF POLITICAL SCIENCE Legal Sex Female 3:26 AM PROFESSOR OF POLITICAL SCIENCE Gender Identity Female 09/12/2020 12:05 PM PROFESSOR OF POLITICAL SCIENCE Sexual Orientation Straight 12/19/2021 10 :44 AM CDT Occupation Industry Job Start Date Job End Date on disability for FMS Not on file Not on file Not on file documented as of this encounter Plan of Treatment Upcoming Encounters Date Type Department Care Team (Late st Contact Info) Description 03/26/2025 11:00 AM CDT Therapy Visit [facility] 150 [place] [phone] Jason Alvares MD [address] [place] [address] 964805 Chaya Castillo, OTR [address] [address] 03/29/2025 10:30 AM CDT Therapy Visit [facility] Specialty [place] [address] [facility] [address] [place] [phone] [place] [address] 300 [place], [place] 762067 04/02/2025 11:00 AM CDT Therapy Visit [facility] 150 [place] [phone] Jason Alvares MD [address] [place] [address] 834105 Chaya Castillo, OTR [facility] 150 [place] [address] 04/11/2025 12:30 PM CDT Office Visit [facility] Primary Care Clinic [address] 4th [place] [phone] Omar Carmona MD [address] [place] [address] 04/12/2025 2:15 PM CDT Therapy [facility] 150 [place] [phone] Jason Alvares MD [address] [place] [address] 045265 Chaya Castillo, OTR [facility] 150 [place] [address] 04/16/2025 11:00 AM CDT Therapy Visit [facility] [place] [address] Jason Alvares MD [address] [place] [address] Chaya Castillo, OTR [facility] 150 [facility] [address] 04/23/2025 11:00 AM CDT Therapy [facility] 150 [facility] [place] [address] Jason Alvares MD [address] [place] [address] Chaya Castillo, OTR [facility] 150 [facility] [address] 04/30/2025 11:00 AM CDT Therapy Visit [facility] 150 [place] [address] Jason Alvares MD 420 [facility] 295 [place], [place] 8[address]15 JonathanChaya, OTR [facility] 150 [place] [address] 05/15/2025 12:30 PM CDT Office Visit [address] [phone] Marquise Hanley MD [address] [place] [address] 680725 06/08/2025 9:15 AM CDT Office Visit [facility] Hepatology [address] [phone] Jignesh Mathias MD [address] [place] [address] 11/05/2025 1:45 PM CDT Office Visit [facility] Dermatology [address] 3rd [place] [phone] Gavi Nieto PA-C Dermatology [address] [place] [address] documented as of this encounter Goals Goal [...] documented as of this encounter Care Teams Sand Slinger Operator Relationship Specialty Start Date End Date Rio Jaquez MD [address] [place] [address]888 PCP - General Family Practice 12/02/10 07/13/24 Omar Carmnoa MD [address] [place] [address] 10019 PCP - General Family Medicine 07/14/24 Barry Kilpatrick MD [address] [place] [address] [id number] [place] 320345 Neurology 07/19/14 Michelle Henderson RN Nurse Coordinator Neurology 07/19/14 Rio Jaquez MD [address] [place] [address] 11268 Family Practice 10/15/14 Jemima Jaramillo MD bumper straightener 11/20/14 Kelley Chin, TANIA [address] 175115 Nurse Coordinator Cardiology 11/04/15 Sydnee Saleem MD [address] [place] [address] 508 [place], [place] [phone] Cardiology 11/04/15 Karlene Moya MD [address] [place] [address] 954985 Ophthalmology 06/24/17 Wilbert Quintero, OD 909 [place] [address] Optometry 06/24/17 Rod Gauthier DPM [address] [place] [address] Educational Programming Director Primary Podiatric Medicine 06/21/18 Nallely Hogue, RN Registered Nurse 02/20/19 11/23/22 Larisa Vargas, TANIA Specialty Virtualization Consultant Cardiology 04/18/19 03/06/22 Rio Jaquez MD [address] [place] [address] [address] [place] [address] Assigned PCP 12/28/19 11/16/20 Ruth Yarbrough MD [address] [place] [address] 101 [place], [place] 125055 Assigned Endocrinology Provider 05/31/20 09/28/20 Francisco Lott MD [address] [place] [address] 88 [place] [address] Assigned Rheumatology Provider 05/31/20 12/13/21 Frida Grace MD [address] [facility] [place] [address] [place] [address] Assigned Pediatric Specialist Provider 05/31/20 09/08/20 Sydnee Saleem MD 6550 [facility] [address] [place] [address] [phone] Assigned Heart and Vascular Provider 05/31/20 10/22/20 Greg Ortega MD 909 [place] [address] Assigned Surgical Provider 06/23/20 12/06/21 Frida Grace MD [address] [facility] [place] [address] [place] [address] Assigned Surgical Provider 05/31/20 06/22/20 Jan Mahmood MD 516 [facility] 2A [place], [place] 057045 Gastroenterology 11/05/20 Brandt Quintana MD 1414 [place] [address] Resident 11/05/20 Jan Mahmood MD 516 [facility] 2A [place] [address] Assigned Gastroenterology Provider 12/01/20 iRo Jaquez MD 909 [facility] 4 [place], [place] 17[address]95 Assigned PCP 11/17/20 09/30/24 Dom Esaon MD 717 [facility] 353 [place], [place] 212884 Internal Medicine 12/02/20 Jayla Plaza, RN Specialty Virtualization Consultant Hepatology 01/09/21 02/13/24 Jayla Plaza, RN Specialty Virtualization Consultant Hepatology 01/10/21 01/10/21 Sydnee Saleem MD 6550 [facility] [address] [place] [address] [phone] Assigned Heart and Vascular Provider 02/02/21 07/24/22 Phan Coello MD Assigned Neuroscience Provider 02/21/21 11/22/21 Cristian Barragan MD 2945 [place] [address] Assigned Infectious Disease Provider 02/21/21 03/06/22 Dom Eason MD [address] [place] [address] 353 [place] [address] Assigned Nephrology Provider 04/20/21 01/02/22 Jaimie Vernon, TANIA Specialty Virtualization Consultant Cardiology 10/28/21 Ruth Riddle DPM, Podiatry/Foot and Ankle Surgery [address] [phone] Assigned Musculoskeletal Provider 11/30/21 09/30/23 Luis Arrington MD [address] [place] [address] [phone] Assigned Neuroscience Provider 11/23/21 01/02/22 Jason Alvares MD [address] [place] [address] 295 [place], [place] 206945 Assigned Neuroscience Provider 01/03/22 05/15/22 Marquise Hanley MD [address] [place] [address] 548195 Endocrinology, Diabetes, and Metabolism 03/05/22 Vlad Ramey MD [address] [place] [address] 49482 Cardiovascular Disease 05/07/22 Joesph Crowe MD [address] [place] [address] 77875 Surgery 05/07/22 Luis Arrington MD [address] [place] [address] 182535 Assigned Neuroscience Provider 05/16/22 05/14/23 Michelle Padilla RN Specialty Virtualization Consultant Cardiology 07/03/22 Vlad Ramey MD [address] [place] [address]92 Assigned Heart and Vascular Provider 07/25/22 05/28/23 Marquise Hanley MD [address] [place] [address] 86646 Assigned Endocrinology Provider 08/15/22 Dom Eason MD [address] [place] [address] 353 [place] [address] Assigned Nephrology Provider 11/28/22 02/19/23 Wagner Oliver MD [address] [place] [address] Critical Care 12/15/22 Laura Epperson, INDUSTRIAL PROPERTY APPRAISER [address] [place] [address] [address] [place] [address] Assigned Nephrology Provider 02/20/23 08/30/24 Thom Taveras MD [address] [place], [place] 9[address]105 [place] [address] Assigned Cancer Care Provider 02/06/23 08/20/23 Joesph Crowe MD [address] [place] [address]31 MD Surgery 03/17/23 Joesph Crowe MD [address] [place] [address] 44062 Assigned Surgical Provider 04/03/23 09/30/24 Adonay Haq MD [address] [place] [address] 34558 Internal Medicine 06/14/23October, Denilson Jackson MD 6405 [facility] [address] [place] [address] Assigned Heart and Vascular Provider 05/29/23 11/28/24 Jason Alvares MD [address] [place] [address] 295 [place] [address] Assigned Neuroscience Provider 05/15/23 11/28/24 Ruth Riddle DPM, Podiatry/Foot and Ankle Surgery [address] [place] 300 [place] [address] Assigned Musculoskeletal Provider 10/22/23 Jignesh Mathias MD [address] [place] [address]85 Gastroenterology 09/25/24 Adonay Haq MD [address] [place] [address]455 Assigned PCP 10/01/24 12/28/24 Omar Carmona MD [address] [place] [address] 55455 Assigned PCP 12/29/24 Jason Alvares MD [address] [place] [address] Assigned Neuroscience Provider 12/29/24 Jignesh Mathias MD [address] [place] [address] Assigned Surgical Provider 12/29/24 Ayad Lopez, PhD LP [address] [place] [address]455 Assigned Behavioral Health Provider 02/28/25 Gavi Nieto PA-C [address] [place] [address] [phone] Physician Roll Setter Dermatology 03/19/25 documented as of this encounter
--- OUTSIDE RECORDS SUMMARY | 2025-03-24 20:27 | XMS_ITS | Encounter Summary ---
Author Organization [facility] Address [address] [place] [address] Care Team Providers Care Tactical Air Control Party Name Role Phone Rio Jaquez MD Primary Care Provider Barry Kilpatrick MD Unavailable Michelle Henderson RN Unavailable [phone] Rio Jaquez MD Unavailable [phone] Jemima Jaramillo MD Unavailable Unavai Kelley Bautista RN Unavailable +[phone] Sydnee Saleem MD Unavailable +[phone] Karlene Moya MD Unavailable [phone] Wilbert Quintero OD Unavailable +[phone] Rod Gauthier DPM Unavailable +[phone] Nallely Hogue RN Unavailable Unavailable Larisa Vargas RN Unavailable Unavailable Francisco Lott MD Unavailable +[phone] Greg Ortega MD Unavailable [phone] Jan Mahmood MD Unavailable +[phone] Brandt Quintana MD Unavailable [phone] Jan Mahmood MD Unavailable Rio Jaquez [...] [phone] Thom Taveras MD Unavailable Joesph Croew MD Unavailable [phone] Joesph Crowe MD Unavailable +[phone] Adonay Haq MD Unavailable [phone] Denilson Srinivasan MD Unavailable +[phone] Jason Alvares MD Unavailable Ruth RiddleM, Podiatry /Foot and Ankle Surgery Unavailable Omar Carmona MD Primary Care Provider [phone] Jignesh Mathias MD Unavailable Adonay Haq MD Unavailable [phone] Omar Carmona MD Unavailable [phone] Jason Alvares MD Unavailable Jignesh Mathias MD Unavailable Ayad Lopez PhD LP Unavailable [phone] Gavi Nieto-C Unavailable [phone] Encounter Details Date Type Department Care Team (Late st Contact Info) Description 11/14/2021 [facility] Medical Advice [facility] [address] [address] Jayla Plaza, RN Folate deficiency Social History Tobacco Use Types Packs/Day Years [...] any clubs o r organizations such as lutheran groups, unions, fraHigher One or athletic groups, or school groups? No [...] Answer Date Recorded PHQ-2 Score 2 08/27/2021 [facility] - Occupational [...] Sex Assigned at Female 09/12/2020 12:05 PM BATT PACKER Legal Sex Female 3:26 AM BATT PACKER Gender Identity Female 09/12/2020 12:05 PM BATT PACKER Sexual Orientation Straight 12/19/2021 10 :44 AM [...] Description 03/26/2025 11:00 AM CDT Therapy Visit [facility] [address] [place] [phone] Jason Alvares MD 420 [facility] 295 [place], [place] [address] Chaya Castillo OTR [facility] 150 [place] [address] 03/29/2025 10:30 AM CDT Therapy Visit [facility] [address] [place] [phone] [place] [address] MICHAEL [address] [place] [address] 04/02/2025 11:00 AM CDT Therapy Visit [facility] [address] [place] [phone] Jason Alvares MD [address] [place] [address] 540755 Chaya Castillo, OTR [address] [address] 04/11/2025 12:30 PM CDT Office Visit [facility] [address] 4th [place] [address] Omar Carmona MD [address] [place] [address] 324975 04/12/2025 2:15 PM CDT Therapy Visit [facility] [address] [place] [phone] Jason Alvares MD [address] [place] [address] Chaya Castillo OTR [address] [address] 04/16/2025 11:00 AM CDT Therapy [facility] [address] [place] [phone] Jason Alvares MD [address] [place] [address] Chaya Csatillo OTR [facility] 150 [facility] [place] [address] 04/23/2025 11:00 AM CDT Therapy [facility] [address] [place] [phone] Jason Alvares MD [address] [place] [address] Chaya Castillo OTR [facility] 150 [place] [address] 04/30/2025 11:00 AM CDT Therapy Visit [facility] [address] [place] [phone] Jason Alvares MD [address] [place] [address] [facility] 150 [place] [address] 05/15/2025 12:30 PM CDT Office Visit [address] [phone] Marquise Hanley MD [address] [place] [address] 06/08/2025 9:15 AM CDT Office Visit [facility] [address] [phone] Jignesh Mathias MD [address] [place] [address] 11/05/2025 1:45 PM CDT Office Visit [facility] [place] [address] [facility] 3rd [place] [phone] Gavi Nieto PA-C Dermatology [address] [place] [address] documented as of this encounter Goals Goal Patient Goal Type Associated Problems Recent Progress Patient-Stated? Author Quit smoking / using tobacco Lifestyle No Rio Jaquez MD Note: 06/25/14 planned quit date documented as of this encounter Visit Diagnoses Diagnosis Folate deficiency Other B-complex deficiencies documented in this encounter Additional Health Concerns Infection Onset Date Last Indicated Resolved Time MRSA Comment:Added from external infection. 10/23/2020 10/21/2020 Rule Out COVID-19 02/09/2024 02/09/2024 02/09/2024 1:52 AM CDT Assessment Noted Time PHQ-9 Depression Total Score: 5 08/27/19 22 9:25 AM BATT PACKER documented as of this encounter Care Teams Tactical Air Control Party Relationship Specialty Start Date End Date Rio Jaquez MD [address] [place] [address] 4 [place] [address] PCP - General Family Practice 12/02/10 07/13/24 Omar Carmona MD [address] [place] [address] PCP - General Family Medicine 07/14/24 Barry Kilpatrick MD [address] [place] [address] [id number] [place] [address] Neurology 07/19/14 Michelle Henderson I, RN Nurse Coordinator Neurology 07/19/14 Rio Jaquez MD [address] [place] [address] 4 [place] [address] Family Practice 10/15/14 Jemima Jaramillo MD intel recruiter 11/20/14 Kelley Chin RN [address] [phone] Nurse Coordinator Cardiology 11/04/15 Sydnee Saleem MD [address] [place] [address] 508 [place], [place] 554585 Cardiology 11/04/15 Karlene Moya MD [address] [place] [address] 625575 Ophthalmology 06/24/17 Wilbert Quintero, OD [address] [place] [address] 340355 Optometry 06/24/17 Rod Gauthier DPM [address] [place] [address] 016505 Motel Keeper Primary Podiatric Medicine 06/21/18 Nallely Hogue, RN Registered Nurse 02/20/19 11/23/22 Larisa Vargas, TANIA Specialty Beamer Helper Cardiology 04/18/19 03/06/22 Francisco Lott MD [address] [place] [address] 553515 Assigned Rheumatology Provider 05/31/20 12/13/21 Greg Ortega MD [address] [place] [address] 396925 Assigned Surgical Provider 06/23/20 12/06/21 Jan Mahmood MD 516 [facility] 2A [place] [address] Gastroenterology 11/05/20 Brandt Quintana MD 1414 [place] [address] Resident 11/05/20 Jan Mahmood MD 516 [facility] [address]A [place] [address] Assigned Gastroenterology Provider 12/01/20 Rio Jaquez MD [address] [place] [address] 4 [place], [place] [phone] Assigned PCP 11/17/20 09/30/24 Dom Eason MD [address] [place] [address] 353 [place] [address] Internal Medicine 12/02/20 Jayla Plaza, RN Specialty Beamer Helper Hepatology 01/09/21 02/13/24 Sydnee Saleem MD 6550 [facility] [address] [place] [address] [phone] Assigned Heart and Vascular Provider 02/02/21 07/24/22 Phan Coello MD Assigned Neuroscience Provider 02/21/21 11/22/21 Cristian Barragan MD [address] [place] [address] Assigned Infectious Disease Provider 02/21/21 03/06/22 Dom Eason MD 717 [facility] 353 [place] [address] Assigned Nephrology Provider 04/20/21 01/02/22 Jaimie Vernon, TANIA Specialty Beamer Helper Cardiology 10/28/21 Ruth Riddle DPM, Podiatry/Foot and Ankle Surgery [address] [facility] 300 [place] [address] Assigned Musculoskeletal Provider 11/30/21 09/30/23 Luis Arrington MD [address] [place] [address] 653685 Assigned Neuroscience Provider 11/23/21 01/02/22 Jason Alvares MD 420 [facility] 295 [place], [place] 848325 Assigned Neuroscience Provider 01/03/22 05/15/22 Marquise Hanley MD [address] [place] [address] Endocrinology, Diabetes, and Metabolism 03/05/22 Vlad Ramey MD [address] [place] [address] 608845 Cardiovascular Disease 05/07/22 Joesph Crowe MD [address] [place] [address] Surgery 05/07/22 Luis Arrington MD [address] [place] [address] 23821 Assigned Neuroscience Provider 05/16/22 05/14/23 Michelle Padilla, RN Specialty Beamer Helper Cardiology 07/03/22 Vlad Ramey MD [address] [place] [address] 52458 Assigned Heart and Vascular Provider 07/25/22 05/28/23 Marquise Hanley MD [address] [place] [address] 960375 Assigned Endocrinology Provider 08/15/22 Dom Eason MD 717 [facility] MICHAEL [address] [place] [address] Assigned Nephrology Provider 11/28/22 02/19/23 Wagner Oliver MD [address] [place], [place] 929[address] Critical Care 12/15/22 Laura Epperson, LULU 717 [facility] [address] [place] [address] Assigned Nephrology Provider 02/20/23 08/30/24 Thom Taveras MD [address] [facility], R105 [place], [place] 703314 Assigned Cancer Care Provider 02/06/23 08/20/23 Joesph Crowe MD [address] [place] [address] 526955 Surgery 03/17/23 Joesph Crowe MD [address] [place] [address] 6[address] Assigned Surgical Provider 04/03/23 09/30/24 Adonay Haq MD [address] [place] [address] Internal Medicine 06/14/23October, Denilson Jackson MD 6405 [facility] CLEO Black [facility] [address] [place] [address] Assigned Heart and Vascular Provider 05/29/23 11/28/24 Jason Alvares MD [address] [place] [address] 295 [place] [address] Assigned Neuroscience Provider 05/15/23 11/28/24 Ruth Riddle DPM, Podiatry/Foot and Ankle Surgery [address] R[address]RIG[address]Z [address] [place] [address] Assigned Musculoskeletal Provider 10/22/23 Jignesh Mathias MD [address] [place] [address] Gastroenterology 09/25/24 Adonay Haq MD [address] [place] [address] Assigned PCP 10/01/24 12/28/24 Omar Carmona MD [address] [place] [address] Assigned PCP 12/29/24 Jason Alvares MD 420 [facility] 295 [place] [address] Assigned Neuroscience Provider 12/29/24 Jignesh Mathias MD [address] [place] [address] Assigned Surgical Provider 12/29/24 Ayad Lopez, PhD LP [address] [place] [address] Assigned Behavioral Health Provider 02/28/25 Gavi Nieto PANavinC [address] [place] [address] [id number] Physician Senior Net Developer Dermatology 03/19/25 documented as of this encounter
--- OUTSIDE RECORDS SUMMARY | 2025-03-24 20:27 | XMS_ITS | Encounter Summary ---
Author Organization [facility] Address [address] [place] [address] Care Team Providers Care Wheel Mill Operator Name Role Phone Barry Kilpatrick MD Unavailable Michelle Henderson RN Unavailable [phone] Rio Jaquez MD Unavailable [phone] Jemima Jaramillo MD Unavailable Unavai Kelley Bautista RN Unavailable [phone] Sydnee Saleem MD Unavailable [phone] Karlene Moya MD Unavailable [phone] Wilbert Quintero OD Unavailable [phone] Rod Gauthier DPM Unavailable Jan Mahmood MD Unavailable [phone] Brandt Quintana MD Unavailable Jan Mahmood MD Unavailable [phone] Dom Eason MD Unavailable +[phone] Jaimie Vernon RN Unavailable Unavailable Marquise Hanley MD Unavailable +[phone] Vlad Ramey MD Unavailable [phone] Joesph Crowe MD Unavailable [phone] Michelle Padilla RN Unavailable Unavaila ble Marquise Hanley MD Unavailable +[phone] Wagner Oliver MD Unavailable + [phone] Joesph Crowe MD Unavailable +[phone] Adonay Haq MD Unavailable [phone] Ruth RiddleM, Podiatry /Foot and Ankle Surgery Unavailable Omar Carmona MD Primary Care Provider [phone] Jignesh Mathias MD Unavailable Adonay Haq MD Unavailable [phone] Omar Carmona MD Unavailable [phone] Jason Alvares MD Unavailable Jignesh Mathias MD Unavailable Ayad Lopez PhD LP Unavailable [phone] Gavi Nieto PA-C Unavailable [phone] Encounter Details Date Type Department Care Team (Late st Contact Info) Description 12/20/2024 [facility] Medical Advice [facility] [address] [phone] Alicia Marmolejo LPN Social History Tobacco Use Types Packs/Day [...] any clubs o r organizations such as faith groups, unions, fraternal or athletic groups, or [...] Answer Date Recorded PHQ-2 Score 3 12/04/2024 [facility] [...] Sex Assigned at Female 09/12/2020 12:05 PM EXHAUSTER Legal Sex Female 3:26 AM EXHAUSTER Gender Identity Female 09/12/2020 12:05 PM EXHAUSTER Sexual Orientation Straight 12/19/2021 10 :44 AM [...] Description 03/26/2025 11:00 AM CDT Therapy Visit [address] [phone] Jason Alvares MD [address] [place] [address] 295 [place], [place] 652825 Chaya Castillo OTR [address] [address] 03/29/2025 10:30 AM CDT Therapy Visit [facility] [address] [place] [address] [place] [address] [address] [place], [place] [address] 04/02/2025 11:00 AM CDT Therapy [facility] [place] [address] Jason Alvares MD [address] [place] [address] Chaya Castillo [facility]TR [facility] 150 [place] [address] 04/11/2025 12:30 PM CDT Office Visit [facility] [address] 4th [place] [phone] Omar Carmona MD [address] [place] [address] 04/12/2025 2:15 PM CDT Therapy Visit [facility] 150 [place] [phone] Jason Alvares MD [address] [place] [address] Chaya Castillo [facility]TR [facility] 150 [place] [address] 04/16/2025 11:00 AM CDT Therapy [facility] 150 [facility] [place] [address] Jason Alvares MD [address] [place] [address] 220445 Chaya Castillo OTR [facility] 150 [place] [address] 04/23/2025 11:00 AM CDT Therapy Visit [facility] [address] [place] [address] Jason Alvares MD [address] [place] [address] Chaya Castillo OTR [facility] 150 [place] [address] 04/30/2025 11:00 AM CDT Therapy Visit [facility] [address] [place] [address] Jason Alvares MD [address] [place] [address] Chaya Castillo OTR [address] [address] 05/15/2025 12:30 PM CDT Office Visit [address] [phone] Marquise Hanley MD [address] [place] [address] 06/08/2025 9:15 AM CDT Office Visit [facility] [address] [phone] Jignesh Mathias MD [address] [place] [address] 066145 11/05/2025 1:45 PM CDT Office Visit [facility] [address] 3rd [place] [phone] Gavi Nieto PA-C Dermatology [address] [place] [address] [phone] documented as of this encounter Goals Goal [...] documented as of this encounter Care Teams Wheel Mill Operator Relationship Specialty Start Date End Date Omar Carmona MD [address] [place] [address] PCP - General Family Medicine 07/14/24 Barry Kilpatrick MD [address] [place] [address] [id number] [place] [address] Neurology 07/19/14 Michelle Henderson RN Nurse Coordinator Neurology 07/19/14 Rio Jaquez MD [address] [place] [address] Family Practice 10/15/14 Jemima Jaramillo MD [address] [place] [address] director informatics 11/20/14 Kelley Chin, TANIA [address] [address] Nurse Coordinator Cardiology 11/04/15 Sydnee Saleem MD [facility] [address] [place] [address] Cardiology 11/04/15 Karlene Moya MD [address] [place] [address] 099865 Ophthalmology 06/24/17 Wilbert Quintero OD 9 [place], [place] 991585 Optometry 06/24/17 Rod Gauthier DPM [address] [place] [address] 382215 Store Mgr Primary Podiatric Medicine 06/21/18 Jan Mahmood MD [address] [place] [address] 303445 Gastroenterology 11/05/20 Brandt Quintana MD [address] [place] [address] Resident 11/05/20 Jan Mahmood MD [address] [place] [address] Assigned Gastroenterology Provider 12/01/20 Dom Eason MD [address] 334244 Internal Medicine 12/02/20 Jaimie Vernon, RN Specialty Fish Hatchery Worker Cardiology 10/28/21 Marquise Hanley MD [address] [place] [address] [phone] Endocrinology, Diabetes, and Metabolism 03/05/22 Vlad Ramey MD [address] [place] [address] 33055 Cardiovascular Disease 05/07/22 Joesph Crowe MD [address] [place] [address] Surgery 05/07/22 Michelle Padilla, RN Specialty Fish Hatchery Worker Cardiology 07/03/22 Marquise Hanley MD [address] [place] [address] Assigned Endocrinology Provider 08/15/22 Wagner Oliver MD [address] [place] [address] Critical Care 12/15/22 Joesph Crowe MD [address] [place] [address] 78158 Surgery 03/17/23 Adonay Haq MD [address] [place] [address] 8[address]51 Internal Medicine 06/14/23 Ruth Riddle DPM, Podiatry/Foot and Ankle Surgery [address] [place] [address] Assigned Musculoskeletal Provider 10/22/23 Jignesh Mathias MD [address] [place] [address] Gastroenterology 09/25/24 Adonay Haq MD [address] [place] [address] Assigned PCP 10/01/24 12/28/24 Omar Carmona MD [address] [place] [address] Assigned PCP 12/29/24 Jason Alvares MD [address] [place] [address] [phone] Assigned Neuroscience Provider 12/29/24 iJgnesh Mathias MD [address] [place] [address] 874815 Assigned Surgical Provider 12/29/24 Ayad Lopez, PhD LP [address] [place] [address] Assigned Behavioral Health Provider 02/28/25 Gavi Nieto PANavinC [address] [place] [address] 583755 Physician Application Technical Designer Dermatology 03/19/25 documented as of this encounter
--- OUTSIDE RECORDS SUMMARY | 2025-03-24 20:28 | XMS_ITS | Encounter Summary ---
Author Organization [facility] Address [address] [place] [address] Care Team Providers Care Nursing Education Specialist Name Role Phone Rio Jaquez MD Primary Care Provider Barry Kilpatrick MD Unavailable Michelle Henderson RN Unavailable [phone] Rio Jaquez MD Unavailable [phone] Jemima Jaramillo MD Unavailable Unavai Kelley Bautista RN Unavailable [phone] Sydnee Saleem MD Unavailable [phone] Karlene Moya MD Unavailable [phone] Wilbert Quintero OD Unavailable [phone] Rod Gauthier DPM Unavailable [phone] Nallely Hogue RN Unavailable Unavailable Larisa Vargas RN Unavailable Unavailable Francisco Lott MD Unavailable [phone] Greg Ortega MD Unavailable [phone] Jan Mahmood MD Unavailable [phone] Brandt Quintana MD Unavailable [phone] Jan Mahmood MD Unavailable Rio Jaquez MD Unavailable Dom Eason MD Unavailable [phone] Jayla Plaza RN Unavailable Jayla Plaza RN Unavailable Sydnee Saleem MD Unavailable Phan Coello MD Unavailable Unavailable Cristian Barragan MD Unavailable Dom Eason MD Unavailable [phone] Jaimie Vernon RN Unavailable Unavailable Ruth Riddle DPM, Podiatry /Foot and Ankle Surgery Unavailable Luis Arrington MD Unavailable Jason Alvares MD Unavailable Marquise Hanley MD Unavailable Vlad Ramey MD Unavailable Joesph Crowe MD Unavailable Luis Arrington MD Unavailable Michelle Padilla RN Unavailable Unavaila ble Vlad Ramey MD Unavailable Marquise Hanley MD Unavailable Dom Eason MD Unavailable Wagner Oliver MD Unavailable [phone] Laura Epperson NP Unavailable [phone] Thom Taveras MD Unavailable Joesph Crowe MD Unavailable Joesph Crowe MD Unavailable Adonay Haq MD Unavailable [phone] OctoberDenilson MD Unavailable Jason Alvares MD Unavailable Ruth Riddle DPM, Podiatry /Foot and Ankle Surgery Unavailable Omar Carmona MD Primary Care Provider Jignesh Mathias MD Unavailable Adonay Haq MD Unavailable Omar Carmona MD Unavailable [phone] Jason Alvares MD Unavailable Jignesh Mathias MD Unavailable Ayad Lopez PhD LP Unavailable Gavi Nieto PA-C Unavailable Encounter Details Date Type Department Care Team (Late st Contact Info) Description 11/25/2020 MyC Medical Advice [facility] [address] [place] [address] Rio Jaquez MD [address] [place] [address] 4 [place] [address] Social History Tobacco Use Types [...] Sex Assigned at Female 09/12/2020 12:05 PM WET CHEMISTRY ANALYST Legal Sex Female 3:26 AM WET CHEMISTRY ANALYST Gender Identity Female 09/12/2020 12:05 PM WET CHEMISTRY ANALYST Sexual Orientation Straight 12/19/2021 10 :44 AM CDT Occupation Industry Job Start Date Job End Date on disability for FMS Not on file Not on file Not on file COVID-19 Exposure Response Date Recorded In the last month, have you been in contact with someone who was confirmed or suspected to have Coronavirus / COVID-19? No / Unsure 11/26/2020 8:23 AM CDT documented as of this encounter Miscellaneous Notes * Telephone Encounter - Eliana Chacon - 11/26/2020 1:32 PM CDT Patient called and schedule a virtual follow-up 11/[address] Jaquez. Patient confirmed appointment, will do via [email or web address]. Eliana Chacon, Dyehouse Worker, November 26, 2020 at 1:33 PM documented in this encounter Plan of Treatment Upcoming Encounters Date Type Department Care Team (Late st Contact Info) Description 03/26/2025 11:00 AM CDT Therapy Visit [address] [phone] Jason Alvares MD [address] [place] [address] [id number] Chaya Castillo, LETA [address] [address] 03/29/2025 10:30 AM CDT Therapy Visit [facility] [address] [facility] [address] [place] [address] [phone] [place] [address] [place], [place] [address] 04/02/2025 11:00 AM CDT Therapy Visit [address] [phone] Jason Alvares MD [address] [place] [address] 116645 Chaya Castillo, OTR [facility] [address] [facility] [place] [address] 04/11/2025 12:30 PM CDT Office Visit [facility] [address] 4th [place] [phone] Omar Carmona MD [address] [place] [address] 04/12/2025 2:15 PM CDT Therapy Visit [facility] [address] [place] [phone] Jason Alvares MD [address] [place] [address] Chaya Castillo OTR [facility] [address] [place] [address] 04/16/2025 11:00 AM CDT Therapy Visit [facility] [address] [place] [phone] Jason Alvares MD [address] [place] [address] 582205 Chaya Castillo OTR [facility] [address] [place] [address] 04/23/2025 11:00 AM CDT [facility] [address] [place] [phone] Jason Alvares MD [address] [place] [address] Chaya Castillo OTR [facility] [address] [place] [address] 04/30/2025 11:00 AM CDT Therapy Visit [facility] [address] [place] [phone] Jason Alvares MD [address] [place] [address] [address] [place] [address] Chaya Castillo, OTR [facility] [address] [place] [address] 05/15/2025 12:30 PM CDT Office Visit [address] [phone] Marquise Hanley MD [address] [place] [address] 06/08/2025 9:15 AM CDT Office Visit [facility] [address] [phone] Jignesh Mathias MD [address] [place] [address] 11/05/2025 1:45 PM CDT Office Visit [facility] [address] [place] [phone] Gavi Nieto PA-C Dermatology [address] [place] [address] [phone] documented as of this encounter Goals Goal [...] Depression Total Score: 12 021 9:43 AM WET CHEMISTRY ANALYST documented as of this encounter Care Teams Nursing Education Specialist Relationship Specialty Start Date End Date Rio Jaquez MD [address] [place] [address] PCP - General Family Practice 12/02/10 07/13/24 Omra Carmona MD [address] [place] [address]93 PCP - General Family Medicine 07/14/24 Barry Kilpatrick MD [address] [place] [address] [id number] [place], [place] [phone] Neurology 07/19/14 Michelle Henderson I, RN Nurse Coordinator Neurology 07/19/14 Rio Jaquez MD [address] [place] [address] 708175 Family Practice 10/15/14 Jemima Jaramillo MD abe teacher 11/20/14 Kelley Chin, TANIA [address] [phone] Nurse Coordinator Cardiology 11/04/15 Sydnee Saleem MD [address] [place] [address] 508 [place], [place] [phone] Cardiology 11/04/15 Karlene Moya MD [address] [place] [address] [phone] Ophthalmology 06/24/17 Wilbert Quintero OD [address] [place] [address] [phone] Optometry 06/24/17 Rod Gauthier DPM [address] [place] [address] 449355 Manager Rail Primary Podiatric Medicine 06/21/18 Nallely Hogue, RN Registered Nurse 02/20/19 11/23/22 Larisa Vargas, TANIA Specialty Lease Analyst Cardiology 04/18/19 03/06/22 Francisco Lott MD [address] [place] [address] Assigned Rheumatology Provider 05/31/20 12/13/21 Greg Ortega MD [address] [place] [address] 9[address] Assigned Surgical Provider 06/23/20 12/06/21 Jan Mahmood MD [address] [place] [address] Gastroenterology 11/05/20 Brandt Quintana MD [address] [place] [address] Resident 11/05/20 Jan Mahmood MD [address] [place] [address] 98[address] Assigned Gastroenterology Provider 12/01/20 Rio aJquez MD [address] [facility] [address] [place] [address] Assigned PCP 11/17/20 09/30/24 Dom Eason MD [address] [place] [address] 353 [place] [address] Internal Medicine 12/02/20 Jayla Plaza, RN Specialty Lease Analyst Hepatology 01/09/21 02/13/24 Jayla Plaza, RN Specialty Lease Analyst Hepatology 01/10/21 01/10/21 Sydnee Saleem MD [address] [place] [address] Assigned Heart and Vascular Provider 02/02/21 07/24/22 Phan Coello MD Assigned Neuroscience Provider 02/21/21 11/22/21 Cristian Barragan MD [address] [place] [address] Assigned Infectious Disease Provider 02/21/21 03/06/22 Dom Eason MD [address] [place] [address] [address] [place] [address] Assigned Nephrology Provider 04/20/21 01/02/22 Jaimie Vernon, TANIA Specialty Lease Analyst Cardiology 10/28/21 Janessa, Ruth J, DPM, Podiatry/Foot and Ankle Surgery [address] [place] [address] Assigned Musculoskeletal Provider 11/30/21 09/30/23 Luis Arrington MD [address] [place] [address] Assigned Neuroscience Provider 11/23/21 01/02/22 Jason Alvares MD [address] [place] [address] 703175 Assigned Neuroscience Provider 01/03/22 05/15/22 Marquise Hanley MD [address] [place] [address] Endocrinology, Diabetes, and Metabolism 03/05/22 Vlad Ramey MD [address] [place] [address] 219505 Cardiovascular Disease 05/07/22 Joesph Crowe MD [address] [place] [address] 11626 Surgery 05/07/22 Luis Arrington MD [address] [place] [address] 9[address] Assigned Neuroscience Provider 05/16/22 05/14/23 Michelle Padilla, TANIA Specialty Lease Analyst Cardiology 07/03/22 Vlad Ramey MD [address] [place] [address] 9[address]27 Assigned Heart and Vascular Provider 07/25/22 05/28/23 Marquise Hanley MD [address] [place] [address] Assigned Endocrinology Provider 08/15/22 Dom Eason MD [address] [facility] [address] [place] [address] Assigned Nephrology Provider 11/28/22 02/19/23 Wagner Oliver MD [address] [place] [address] Critical Care 12/15/22 Laura Epperson NP [address] [facility] [address] [place] [address] Assigned Nephrology Provider 02/20/23 08/30/24 Thom Taveras MD [address] [place] [address] Assigned Cancer Care Provider 02/06/23 08/20/23 Joesph Crowe MD [address] [place] [address] 52089 Surgery 03/17/23 Joesph Crowe MD [address] [place] [address] 77783 Assigned Surgical Provider 04/03/23 09/30/24 Adonay Haq MD [address] [place] [address] 09349 Internal Medicine 06/14/23October, Denilson Jackson MD [address] [place], [place] 876[address] Assigned Heart and Vascular Provider 05/29/23 11/28/24 Jason Alvares MD [address] [facility] [address] [place], [place] 827985 Assigned Neuroscience Provider 05/15/23 11/28/24 Ruth Riddle, DPM, Podiatry/Foot and Ankle Surgery [address] [place], [place] 473937 Assigned Musculoskeletal Provider 10/22/23 Jignesh Mathias MD [address] [place] [address] 197765 Gastroenterology 09/25/24 Adonay Haq MD [address] [place] [address] 826805 Assigned PCP 10/01/24 12/28/24 Omar Carmona MD [address] [place] [address] [phone] Assigned PCP 12/29/24 Jason Alvares MD [address] [facility] 295 [place], [place] 027595 Assigned Neuroscience Provider 12/29/24 Jignesh Mathias MD [address] [place] [address]15 Assigned Surgical Provider 12/29/24 Ayad Lopez, PhD LP [address] [place] [address] Assigned Behavioral Health Provider 02/28/25 Gavi Nieto PA-C [address] [place], [place] 175905 Physician Nursery Laborer Dermatology 03/19/25 documented as of this encounter
--- OUTSIDE RECORDS SUMMARY | 2025-03-24 20:28 | XMS_ITS | Encounter Summary ---
Author Organization [facility] Address [address] [place] [address] Care Team Providers Care Park Maintenance Technician Name Role Phone Rio Jaquez MD Primary Care Provider Barry Kilpatrick MD Unavailable Michelle Henderson RN Unavailable [phone] Rio Jaquez MD Unavailable [phone] Jemima Jaramillo MD Unavailable Unavai Kelley Bautista RN Unavailable [phone] Sydnee Saleem MD Unavailable [phone] Karlene Moya MD Unavailable [phone] Wilbert Quintero OD Unavailable [phone] Rod Gauthier DPM Unavailable [phone] Nallely Hogue RN Unavailable Unavailable Larisa Vargas RN Unavailable Unavailable Francisco Lott MD Unavailable [phone] Greg Ortega MD Unavailable [phone] Jan Mahmood MD Unavailable [phone] Brandt Quintana MD Unavailable [phone] Jan Mahmood MD Unavailable Rio Jaquez [...] MD Unavailable Joesph Crowe MD Unavailable [phone] Luis Arrington MD Unavailable Michelle Padilla RN Unavailable Unavaila ble Vlad Ramey MD Unavailable Marquise Hanley MD Unavailable [phone] Dom Eason MD Unavailable Wagner Oliver MD Unavailable Laura Epperson NP Unavailable [phone] Thom Taveras MD Unavailable Joesph Crowe MD Unavailable [phone] Joesph Crowe MD Unavailable [phone] Adonay Haq MD Unavailable [phone] Denilson Srinivasan MD Unavailable [phone] Jason Alvares MD Unavailable Ruth Riddle DPM, Podiatry /Foot and Ankle Surgery Unavailable Omar Carmona MD Primary Care Provider [phone] Jignesh Mathias MD Unavailable Adonay Haq MD Unavailable [phone] Omar Carmona MD Unavailable [phone] Jason Alvares MD Unavailable Jignesh Mathias MD Unavailable Ayad Lopez PhD LP Unavailable [phone] Gavi Nieto PA-C Unavailable [phone] Encounter Details Date Type Department Care Team (Late st Contact Info) Description 09/09/2021 [facility] [place] Medical Advice [facility] [address] [address] Rio Jaquez MD [address] [place] [address] Steatosis of liver (Primary Dx); Hyperlipidemia LDL goal <100; Acquired hypothyroidism; LFT elevation Social History Tobacco Use Types Packs/Day Years [...] than three times a week 08/27/2021 Attends Christian Services Not on file 08/27 Do you belong to any clubs o r organizations such as religious groups, unions, fra[employer]Vibe or athletic groups, or school groups? No [...] Date Recorded PHQ-2 Score 2 08/27/2021 [facility] - [...] place to sleep or slept in a mcfp (including now)? No 08/27/2021 Comments No Sex and Gender Information Value Date Recorded Sex Assigned at Female 09/12/2020 12:05 PM SUPERVISOR SHEARING Legal Sex Female 3:26 AM SUPERVISOR SHEARING Gender Identity Female 09/12/2020 12:05 PM SUPERVISOR SHEARING Sexual Orientation Straight 12/19/2021 10 :44 AM [...] COVID-19? No / Unsure 09/09/2021 11:42 AM SUPERVISOR SHEARING documented as of this encounter Miscellaneous Notes * Telephone Encounter - Rio Jaquez MD - 09/09/2021 1:39 PM SUPERVISOR SHEARING Immunization History Administered Date(s) Administered ??? COVID-19,PF,Mela 02/14/2021 ??? COVID-19,PF,Pfizer (12+ Yrs) 08/19/2021 ??? FLU 6-35 months 06/14/2017 ??? Influenza (IIV3) PF 07/07/2010, 05/28/2011, 06/13/2012, 05/29/2013, 06/18/2014, 07/06/2016, 05/18/2021 ??? Influenza Quad, Recombinant, pf(RIV4) (Flublok) 10/04/2020 Influenza Vaccine IM > 6 months Valent IIV4 (Alfuria,Fluzone) 06/09/2017, 10/10/2018, 06/22/2019, 05/24/2020 Influenza,INJ,MDCK,PF,Quad >4yrs 06/22/2019 ??? Mantoux Tuberculin Skin Test 02/23/2011 ??? Pneumococcal 23 valent 05/28/2011 ??? TD (ADULT, 7+) 01/16/2010, 02/22/2020 ??? Twinrix A/B 08/27/2021 Results for KRYSTAL SEBASTIÁNARTURCIARRA ( ) as of 09/12/2021 13:30 Ref. Range 09/09/2021 11:25 Sodium Latest Ref Range: 133 - 144 mmol/L 140 Potassium Latest Ref Range: 3.4 - 5.3 mmol/L 3.2 (L) Chloride Latest Ref Range: 94 - 109 mmol/L 108 Carbon Dioxide Latest Ref Range: 20 - 32 mmol/L 25 Urea Nitrogen Latest Ref Range: 7 - 30 mg/dL 11 Creatinine Latest Ref Range: 0.52 - 1.04 mg/dL 1.15 (H) GFR Estimate Latest Ref Range: >60 mL/min/1.73m2 57 (L) Calcium Latest Ref Range: 8.5 - 10.1 mg/dL 10.0 Anion Gap Latest Ref Range: 3 - 14 mmol/L 7 Albumin Latest Ref Range: 3.4 - 5.0 g/dL 3.9 Protein Total Latest Ref Range: 6.8 - 8.8 g/dL 7.7 Bilirubin Total Latest Ref Range: 0.2 - 1.3 mg/dL 2.1 (H) Alkaline Phosphatase Latest Ref Range: 40 - 150 U/L 130 ALT Latest Ref Range: 0 - 50 U/L 98 (H) AST Latest Ref Range: 0 - 45 U/L 255 (H) T4 Free Latest Ref Range: 0.76 - 1.46 ng/dL 1.76 (H) TSH Latest Ref Range: 0.40 - 4.00 mU/L 0.08 (L) Glucose Latest Ref Range: 70 - 99 mg/dL 127 (H) WBC Latest Ref Range: 4.0 - 11.0 10e3/uL 5.9 Hemoglobin Latest Ref Range: 11.7 - 15.7 g/dL 12.9 Hematocrit Latest Ref Range: 35.0 - 47.0 % 39.7 Platelet Count Latest Ref Range: 150 - 450 10e3/uL 101 (L) RBC Count Latest Ref Range: 3.80 - 5.20 10e6/uL 4.30 MCV Latest Ref Range: 78 - 100 fL 92 MCH Latest Ref Range: 26.5 - 33.0 pg 30.0 MCHC Latest Ref Range: 31.5 - 36.5 g/dL 32.5 RDW Latest Ref Range: 10.0 - 15.0 % 13.4 % Neutrophils Latest Units: % 60 % Lymphocytes Latest Units: % 29 % Monocytes Latest Units: % 4 % Eosinophils Latest Units: % 6 % Basophils Latest Units: % 1 Absolute Basophils Latest Ref Range: 0.0 - 0.2 10e3/uL 0.0 Absolute Eosinophils Latest Ref Range: 0.0 - 0.7 10e3/uL 0.3 Absolute Immature Granulocytes Latest Ref Range: <=0.4 10e3/uL 0.0 Absolute Lymphocytes Latest Ref Range: 0.8 - 5.3 10e3/uL 1.7 Absolute Monocytes Latest Ref Range: 0.0 - 1.3 10e3/uL 0.3 % Immature Granulocytes Latest Units: % 0 Absolute Neutrophils Latest Ref Range: 1.6 - 8.3 10e3/uL 3.5 Absolute NRBCs Latest Units: 10e3/uL 0.0 NRBCs per 100 WBC Latest Ref Range: <1 /100 0 September 12, 2021 I was able to reach Ciarra regarding her test results liver function elevated noted fogginess after taking 2-3 doses of atorvastatin. She discontinued atorvastatin yesterday and already feels alittle bit better today. Her potassium was slightly low but the labs were fasting and she will increase potassium rich foods in her diet including fruits and try sweet potatoes. She was able to get a book on the Mediterranean diet and is excited about exploring a different pattern of eating has a nutrition visit scheduled awaiting approval from insurance and will follow up with Dr. Borjas within the next month regarding her liver. I will reorder fasting lipids and liver function along with thyroid function as we are adjusting her dose of levothyroxine to 50 mcg daily discontinue previous dose. I will add atorvastatin to her medication list of side effects as increased liver function I called the pharmacy. We may be able to try a different statin with Dr. Borjas's approval at another date if liver function improve. Allergies Allergen Reactions ??? Cephalexin Anaphylaxis and Hives Other reaction(s): Throat Swelling/Closing, Wheezing ??? Duloxetine Anaphylaxis Other reaction(s): *Unknown Liver cannot tolerate this medication Liver cannot tolerate this medication ??? Pertussis Vaccine Anaphylaxis allergie occurred when she was 4, states tetanus is fine just not Pertussis/whooping cough ??? Sulfa Drugs Hives, GI Disturbance, Shortness Of Breath and Anaphylaxis Other reaction(s): Urinary Retention Other reaction(s): Other - Describe In Comment Field ??? Atorvastatin Other (See Comments) Elevated liver function myalgia fatigue ??? Codeine ??? Gabapentin ??? Latex Rash Diagnoses and all orders for this visit: Steatosis of liver - Comprehensive metabolic panel; Future Hyperlipidemia LDL goal <100 - Lipid panel reflex to direct LDL Fasting; Future - Comprehensive metabolic panel; Future Acquired hypothyroidism - levothyroxine (SYNTHROID/LEVOTHROID) 50 MCG tablet; Take 1 tablet (50 mcg) by mouth daily - TSH with free T4 reflex; Future LFT elevation - Comprehensive metabolic panel; Future Rio Jaquez MD RVISOR SHEARING RVISOR SHEARING documented in this encounter Plan of Treatment Upcoming Encounters Date Type Department Care Team (Late st Contact Info) Description 03/26/2025 11:00 AM CDT Therapy Visit [address] [phone] Jason Alvares MD [address] [place] [address] 295 [place] [address] Chaya Castillo, WESR [facility] [address] [place], [place] [phone] 03/29/2025 10:30 AM CDT Therapy Visit [facility] [place] [address] [place] [phone] [place] [address] [place] [address] 04/02/2025 11:00 AM CDT Therapy Visit [facility] [address] [place] [phone] Jason Alvares MD [address] [place] [address] [phone] Chaya Castillo, OTR [facility] [address] [address] 04/11/2025 12:30 PM CDT Office Visit [facility] [address] 4th [place] [phone] Omar Carmona MD [address] [place] [address] 714395 04/12/2025 2:15 PM CDT Therapy Visit [facility] [address] [place] [phone] Jason Alvares MD [address] [place] [address] 666155 Chaya Castillo OTR [facility] [address] [place] [address] 04/16/2025 11:00 AM CDT Therapy Visit [facility] [address] [place] [phone] Jason Alvares MD [address] [place] [address] Chaya Castillo OTR [facility] [address] [place] [address] 04/23/2025 11:00 AM CDT Therapy Visit [facility] [address] [place] [phone] Jason Alvares MD [address] [place] [address] Chaya Castillo [facility] [address] [place] [address] 04/30/2025 11:00 AM CDT [facility] [address] [place] [phone] Jason Alvares MD [address] [place] [address] [phone] Chaya Castillo O[facility] [address] [place] [address] 05/15/2025 12:30 PM CDT Office Visit [address] [phone] Marquise Hanley MD [address] [place] [address] 588315 06/08/2025 9:15 AM CDT Office Visit [facility] Hepatology [address] [phone] Jignesh Mathias MD [address] [place] [address] 055185 11/05/2025 1:45 PM CDT Office Visit [facility] Dermatology [facility] [place] 887009 [facility] 3rd [place] [address] Gavi Nieto PA-C Dermatology [address] [place] [address] [phone] documented as of this encounter Goals Goal Patient Goal Type Associated Problems Recent Progress Patient-Stated? Author Quit smoking / using tobacco Lifestyle Rio Will MD Note: 06/25/14 planned quit date documented as of this encounter Results * (ABNORMAL) Comprehensive metabolic panel (10/22/2021 7:53 AM CDT) Sodium 142 133 - 144 mmol/L 10/22/2021 8:23 AM CDT [facility] Potassium 3.6 3.4 - 5.3 mmol/L 10/22/2021 8:23 AM CDT [facility] Chloride 109 94 - 109 mmol/L 10/22/2021 8:23 AM CDT [facility] Carbon Dioxide (CO2) 26 20 - 32 mmol/L 10/22/2021 8:23 AM CDT [facility] Anion Gap 7 3 - 14 mmol/L 10/22/2021 8:23 AM CDT [facility] Urea Nitrogen 12 7 - 30 mg/dL 10/22/2021 8:23 AM CDT [facility] Creatinine 1.04 0.52 - 1.04 mg/dL 10/22/2021 8:23 AM CDT [facility] Calcium 10.0 8.5 - 10.1 mg/dL 10/22/2021 8:23 AM CDT [facility] Glucose 96 70 - 99 mg/dL 10/22/2021 8:23 AM CDT [facility] Alkaline Phosphatase 94 40 - 150 U/L 10/22/2021 8:23 AM CDT [facility] AST 72(H) 0 - 45 U/L 10/22/2021 8:23 AM CDT [facility] ALT 41 0 - 50 U/L 10/22/2021 8:23 AM CDT [facility] Protein Total 7.5 6.8 - 8.8 g/dL 10/22/2021 8:23 AM CDT [facility] Albumin 4.2 3.4 - 5.0 g/dL 10/22/2021 8:23 AM CDT [facility] Bilirubin Total 4.1(H) 0.2 - 1.3 mg/dL 10/22/2021 8:23 AM CDT [facility] GFR Estimate 64 >60 mL/min/1.7 3m2 10/22/2021 8:23 AM CDT [facility] Comment:Effective July 102020 eGFRcr in adults is calculated using the 2020 CKD-EPI creatinine equation which includes age and gender (Liyah et al., [place], DOI: 10.1056/UMEKan0801437) Blood STRUCTURE OF LEFT UPPER LIMB / Unknown Venipuncture / Unknown 10/22/2021 7:53 AM CDT 10/22/2021 7:53 AM CDT us Rio Jaquez MD LAB - BLOOD ORDERABLES Fin al Result [facility] Surgery [address] 1st [place] [address] * (ABNORMAL) Lipid panel reflex to direct LDL Fasting (10/15/2021 7:32 AM SUPERVISOR SHEARING) Cholesterol 408(H) <200 mg/dL 10/15/2021 2:09 PM SUPERVISOR SHEARING [facility] Triglycerides 159(H) <150 mg/dL 10/15/2021 2:09 PM SUPERVISOR SHEARING [facility] Direct Measure HDL 81 >=50 mg/dL 10/15/2021 2:09 PM SUPERVISOR SHEARING [facility] LDL Cholesterol Calculated 295(H) <=100 mg/dL 10/15/2021 2:09 PM SUPERVISOR SHEARING [facility] Non HDL Cholesterol 327(H) <130 mg/dL 10/15/2021 2:09 PM SUPERVISOR SHEARING [facility] Blood STRUCTURE OF LEFT UPPER LIMB / Unknown Venipuncture / Unknown 10/15/2021 7:32 AM SUPERVISOR SHEARING 10/15/2021 7:32 AM SUPERVISOR SHEARING Narrative [facility] - 10/15/2021 2:09 PM SUPERVISOR SHEARING Cholesterol Desirable: <200 mg/dL Triglycerides Normal: Less [...] Greater than or equal to 220 mg/dL Rio Jaquez MD LAB - BLOOD ORDERABLES Fin al Result Performing Organization Address City/[facility] Co de Phone Number [facility] [address] [place] [address] * (ABNORMAL) TSH with free T4 reflex (10/15/2021 7:32 AM SUPERVISOR SHEARING) TSH 0.19(L) 0.40 - 4.00 mU/L 10/15/2021 2:16 PM SUPERVISOR SHEARING [facility] Blood STRUCTURE OF LEFT UPPER LIMB / Unknown Venipuncture / Unknown 10/15/2021 7:32 AM SUPERVISOR SHEARING 10/15/2021 7:32 AM SUPERVISOR SHEARING Rio Jaquez MD LAB - BLOOD ORDERABLES Fin al Result Performing Organization Address City/[facility]/ZIP Co de Phone Number [facility] [address] 1st [place] [address] documented in this encounter Visit Diagnoses Diagnosis Steatosis of liver- Primary Other chronic nonalcoholic liver disease Hyperlipidemia LDL goal <100 Other and unspecified hyperlipidemia Acquired hypothyroidism Unspecified hypothyroidism LFT elevation Other abnormal blood chemistry documented in this encounter Additional Health Concerns Infection Onset Date Last Indicated Resolved Time MRSA Comment:Added from external infection. 10/23/2020 10/21/2020 Rule Out COVID-19 02/09/2024 02/09/2024 02/09/2024 1:52 AM CDT Assessment Noted Time PHQ-9 Depression Total Score: 5 08/27/19 22 9:25 AM SUPERVISOR SHEARING documented as of this encounter Care Teams Park Maintenance Technician Relationship Specialty Start Date End Date Rio Jaquez MD [address] [place] [address] PCP - General Family Practice 12/02/10 07/13/24 Omar Carmona MD [address] [place] [address] PCP - General Family Medicine 07/14/24 Barry Kilpatrick MD [address] [place] [address] [id number] [place] [address] Neurology 07/19/14 Michelle Henderson RN Nurse Coordinator Neurology 07/19/14 Rio Jaquez MD [address] [place] [address] Family Practice 10/15/14 Jemima Jaramillo MD hob machine operator 11/20/14 Kelley Chin, TANIA [address] [address] Nurse Coordinator Cardiology 11/04/15 Sydnee Saleem MD [address] [facility] [address] [place], [place] [phone] Cardiology 11/04/15 Karlene Moya MD [address] [place] [address] [phone] Ophthalmology 06/24/17 Wilbert Quintero, OD [address] [place] [address] [phone] Optometry 06/24/17 Rod Gauthier DPM [address] [place] [address] 484295 Small Products Assembler Primary Podiatric Medicine 06/21/18 Nallely Hogue, RN Registered Nurse 02/20/19 11/23/22 Larisa Vargas, TANIA Specialty Medicine Worker Cardiology 04/18/19 03/06/22 Francisco Lott MD [address] [place] [address] 88 [place], [place] 117165 Assigned Rheumatology Provider 05/31/20 12/13/21 Greg Ortega MD [address] [place] [address] 806165 Assigned Surgical Provider 06/23/20 12/06/21 Jan Mahmood MD [address] [place] [address] [address] [place], [place] [phone] Gastroenterology 11/05/20 Brandt Quintana MD [address] [place] [address] Resident 11/05/20 Jan Mahmood MD [address] [facility] [address] [place] [address] Assigned Gastroenterology Provider 12/01/20 Rio Jaquez MD [address] [facility] 4 [place], [place] 485695 Assigned PCP 11/17/20 09/30/24 Dom Eason MD [address] [place] [address] Internal Medicine 12/02/20 Jayla Plaza RN Specialty Medicine Worker Hepatology 01/09/21 02/13/24 Sydnee Saleem MD [address] [place] [address] Assigned Heart and Vascular Provider 02/02/21 07/24/22 Phan Coello MD Assigned Neuroscience Provider 02/21/21 11/22/21 Cristian Barragan MD [address] [place] [address] Assigned Infectious Disease Provider 02/21/21 03/06/22 Dom Eason MD [address] [place] [address] Assigned Nephrology Provider 04/20/21 01/02/22 Jaimie Vernon, RN Specialty Medicine Worker Cardiology 10/28/21 Ruth Riddle DPM, Podiatry/Foot and Ankle Surgery [address] [place] [address] Assigned Musculoskeletal Provider 11/30/21 09/30/23 Luis Arrington MD [address] [place] [address] Assigned Neuroscience Provider 11/23/21 01/02/22 Jason Alvares MD [address] [place] [address] Assigned Neuroscience Provider 01/03/22 05/15/22 Marquise Hanley MD [address] [place] [address] Endocrinology, Diabetes, and Metabolism 03/05/22 Vlad Ramey MD [address] [place] [address] Cardiovascular Disease 05/07/22 Joesph Crowe MD [address] [place] [address] Surgery 05/07/22 Luis Arrington MD [address] [place] [address] Assigned Neuroscience Provider 05/16/22 05/14/23 Michelle Padilla RN Specialty Medicine Worker Cardiology 07/03/22 Vlad Ramey MD [address] [place] [address] Assigned Heart and Vascular Provider 07/25/22 05/28/23 Marquise Hanley MD [address] [place] [address] Assigned Endocrinology Provider 08/15/22 Dom Eason MD [address] [facility] [address] [place] [address] Assigned Nephrology Provider 11/28/22 02/19/23 Wagner Oliver MD [address] [place] [address] Critical Care 12/15/22 Laura Epperson NP [address] [place] [address] [address] [place] [address] Assigned Nephrology Provider 02/20/23 08/30/24 Thom Taveras MD [address] [place] [address], [address] [address] Assigned Cancer Care Provider 02/06/23 08/20/23 Joesph Crowe MD [address] [place] [address] Surgery 03/17/23 Joesph Crowe MD [address] [place] [address] Assigned Surgical Provider 04/03/23 09/30/24 Adonay Haq MD [address] [place] [address] Internal Medicine 06/14/23October, Denilson Jackson MD [address] [place] [address] Assigned Heart and Vascular Provider 05/29/23 11/28/24 Jason Alvares MD [address] [place] [address] Assigned Neuroscience Provider 05/15/23 11/28/24 Ruth Riddle DPM, Podiatry/Foot and Ankle Surgery [address] [place] [address] Assigned Musculoskeletal Provider 10/22/23 Jignesh Mathias MD [address] [place] [address] Gastroenterology 09/25/24 Adonay Haq MD [address] [place] [address] Assigned PCP 10/01/24 12/28/24 Omar Carmona MD [address] [place] [address] Assigned PCP 12/29/24 Jason Alvares MD [address] [place] [address] Assigned Neuroscience Provider 12/29/24 Jignesh Mathias MD [address] [place] [address] Assigned Surgical Provider 12/29/24 Ayad Lopez, PhD LP [address] [place] [address] Assigned Behavioral Health Provider 02/28/25 Gavi Nieto PA-C [address] [place] [address] Physician Instructor [facility] 03/19/25 documented as of this encounter
--- OUTSIDE RECORDS SUMMARY | 2025-03-24 20:28 | XMS_ITS | Encounter Summary ---
Author Organization [place] Address [address] [place] [address] Care Team Providers Care Big Data Developer Name Role Phone Rio Jaquez MD Primary Care Provider Barry Kilpatrick MD Unavailable Michelle Henderson RN Unavailable [phone] Rio Jaquez MD Unavailable [phone] Jemima Jaramillo MD Unavailable Unavai Kelley Bautista RN Unavailable [phone] Sydnee Saleem MD Unavailable [phone] Karlene Moya MD Unavailable [phone] Wilbert Quintero OD Unavailable [phone] Rod Gauthier DPM Unavailable [phone] Nallely Hogue RN Unavailable Unavailable Larisa Vargas RN Unavailable Unavailable Francisco Lott MD Unavailable [phone] Greg Ortega MD Unavailable [phone] Jan Mahmood MD Unavailable [phone] Brandt Quintana MD Unavailable [phone] Jan Mahmood MD Unavailable Rio Jaquez [...] MD Unavailable Joesph Crowe MD Unavailable [phone] Joesph Croew MD Unavailable [phone] Adonay Haq MD Unavailable [phone] Denilson Srinivasan MD Unavailable [phone] Jason Alvares MD Unavailable Ruth RiddleM, Podiatry /Foot and Ankle Surgery Unavailable Omar Carmona MD Primary Care Provider [phone] Jignesh Mathias MD Unavailable Adonay Haq MD Unavailable [phone] Omar Carmona MD Unavailable [phone] Jason Alvares MD Unavailable Jignesh Mathias MD Unavailable Ayad Lopez PhD LP Unavailable [phone] Gavi Nieto-C Unavailable [phone] Encounter Details Date Type Department Care Team (Late st Contact Info) Description 09/05/2021 [facility] Hepatology Clinic [address] [address] Lizbeth Lopes Social History Tobacco [...] r organizations such as baptist groups, unions, fraMashWorx or athletic groups, or school groups? No [...] Answer Date Recorded PHQ-2 Score 2 08/27/2021 [facility] [...] Sex Assigned at Female 09/12/2020 12:05 PM TOMBSTONE ERECTOR Legal Sex Female 3:26 AM TOMBSTONE ERECTOR Gender Identity Female 09/12/2020 12:05 PM TOMBSTONE ERECTOR Sexual Orientation Straight 12/19/2021 10 :44 [...] have Coronavirus / COVID-19? No / Unsure 08/27/2021 7:34 AM TOMBSTONE ERECTOR documented as of this encounter Plan of Treatment Upcoming Encounters Date Type Department Care Team (Late st Contact Info) Description 03/26/2025 11:00 AM CDT Therapy Visit [address] [address] Jason Alvares MD 420 [facility] 295 [place], [place] 544095 Chaya Castillo OTR [facility] 150 [place] [address] 03/29/2025 10:30 AM CDT Therapy Visit [facility] [address] [place] [phone] [place] [address] [address] 300 [place] [address] 04/02/2025 11:00 AM CDT Therapy Visit [address] [phone] Jason Alvares MD [address] [place] [address] Chaya Castillo, OTR [address] [address] 04/11/2025 12:30 PM CDT Office Visit [facility] [address] 4th [place] [phone] Omar Carmona MD [address] [place] [address] 275345 04/12/2025 2:15 PM CDT Therapy Visit [address] [phone] Jason Alvares MD [address] [place] [address] Chaya Castillo, OTR [facility] [address] [address] 04/16/2025 11:00 AM CDT Therapy Visit [address] [phone] Jasno Alvares MD [address] [place] [address] Chaya Castillo, OTR [facility] 150 [facility] [place] [address] 04/23/2025 11:00 AM CDT Therapy Visit [facility] 150 [facility] [place] [address] Jason Alvares MD [address] [place] [address] Chaya Castillo OTR [facility] 150 [place] [address] 04/30/2025 11:00 AM CDT Therapy Visit [facility] [address] [facility] [address] Jason Alvares MD [address] [place] [address] Chaya Castillo OTR [facility] 150 [place] [address] 05/15/2025 12:30 PM CDT Office Visit [address] [phone] Marquise Hanley MD [address] [place] [address] 06/08/2025 9:15 AM CDT Office Visit [facility] Hepatology Clinic [address] [phone] Jignesh Mathias MD [address] [place] [address] 11/05/2025 1:45 PM CDT Office Visit [facility] Dermatology Clinic [address] 3rd [place] [phone] Gavi Nieto PA-C Dermatology [address] [place] [address] documented as of this encounter Goals Goal [...] Total Score: 5 08/27/19 22 9:25 AM TOMBSTONE ERECTOR documented as of this encounter Care Teams Big Data Developer Relationship Specialty Start Date End Date Rio Jaquez MD [address] [place] [address] PCP - General Family Practice 12/02/10 07/13/24 Omar Carmona MD [address] [place] [address] PCP - General Family Medicine 07/14/24 Barry Kilpatrick MD [address] [place] [address] [id number] [place], [place] 616[address] Neurology 07/19/14 Michelle Henderson I, RN Nurse Coordinator Neurology 07/19/14 Rio Jaquez MD [address] [place] [address] 212775 Family Practice 10/15/14 Jemima Jaramillo MD engineering equipment operator 11/20/14 Kelley Chin, TANIA [facility] 909 [place], [place] 644685 Nurse Coordinator Cardiology 11/04/15 Sydnee Saleem MD [address] [place] [address] 508 [place], [place] 458795 Cardiology 11/04/15 Karlene Moya MD [address] [place] [address] 300375 Ophthalmology 06/24/17 Wilbert Quintero, OD [address] [place] [address] 309205 Optometry 06/24/17 Rod Gauthier DPM [address] [place] [address] White Lead Grinder Primary Podiatric Medicine 06/21/18 Nallely Hogue, RN Registered Nurse 02/20/19 11/23/22 Larisa Vargas, TANIA Specialty Lead Process Engineer Cardiology 04/18/19 03/06/22 Francisco Lott MD [address] [place] [address] 649235 Assigned Rheumatology Provider 05/31/20 12/13/21 Greg Ortega MD [address] [place] [address] 793445 Assigned Surgical Provider 06/23/20 12/06/21 Jan Mahmood MD 516 [facility] [place] [address] Gastroenterology 11/05/20 Brandt Quintana MD 1414 [place] [address] Resident 11/05/20 Jan Mahmood MD [facility] 2A [place] [address] Assigned Gastroenterology Provider 12/01/20 Rio Jaquez MD 909 [facility] 4 [place], [place] 725905 Assigned PCP 11/17/20 09/30/24 Dom Eason MD 717 [facility] 353 [place], [place] 560984 Internal Medicine 12/02/20 Jayla Plaza, RN Specialty Lead Process Engineer Hepatology 01/09/21 02/13/24 Sydnee Saleem MD [address] [place] [address] Assigned Heart and Vascular Provider 02/02/21 07/24/22 Phan Coello MD Assigned Neuroscience Provider 02/21/21 11/22/21 Cristian Barragan MD 2945 [place] [address] Assigned Infectious Disease Provider 02/21/21 03/06/22 Dom Eason MD 717 [facility] 353 [place] [address] Assigned Nephrology Provider 04/20/21 01/02/22 Jaimie Vernon, RN Specialty Lead Process Engineer Cardiology 10/28/21 Ruth Riddle, DPM, Podiatry/Foot and Ankle Surgery 13443 [facility] 300 [place] [address] Assigned Musculoskeletal Provider 11/30/21 09/30/23 Luis Arrington MD [address] [place] [address] Assigned Neuroscience Provider 11/23/21 01/02/22 Jason Alvares MD [address] [place] [address] 295 [place] [address] Assigned Neuroscience Provider 01/03/22 05/15/22 Marquise Hanley MD [address] [place] [address] Endocrinology, Diabetes, and Metabolism 03/05/22 Vlad Ramey MD [address] [place] [address] Cardiovascular Disease 05/07/22 Joesph Crowe MD [address] [place] [address] Surgery 05/07/22 Luis Ar[place] MD [address] [place] [address] Assigned Neuroscience Provider 05/16/22 05/14/23 Michelle Padilla, RN Specialty Lead Process Engineer Cardiology 07/03/22 Vlad Ramey MD 909 [place] [address] Assigned Heart and Vascular Provider 07/25/22 05/28/23 Marquise Hanley MD 909 [place] [address] Assigned Endocrinology Provider 08/15/22 Dom Eason MD 717 [facility] 353 [place] [address] Assigned Nephrology Provider 11/28/22 02/19/23 Wagner Oliver MD 6401 [place] [address] Critical Care 12/15/22 Laura Epperson, ELECTROPHYSIOLOGY TECHNICIAN 717 [facility] 1932 [place] [address] Assigned Nephrology Provider 02/20/23 08/30/24 Thom Taveras MD [address] [place] [address] Assigned Cancer Care Provider 02/06/23 08/20/23 Joesph Crowe MD [address] [place] [address] Surgery 03/17/23 Joesph Crowe MD 9 [place] [address] Assigned Surgical Provider 04/03/23 09/30/24 Adonay Haq MD [address] [place] [address] Internal Medicine 06/14/23October, Denilson Jackson MD 6405 [facility] [address] [place] [address] Assigned Heart and Vascular Provider 05/29/23 11/28/24 Jason Alvares MD 420 [facility] 295 [place] [address] Assigned Neuroscience Provider 05/15/23 11/28/24 Ruth Riddle DPM, Podiatry/Foot and Ankle Surgery 35019 [facility] 300 [place], [place] 501767 Assigned Musculoskeletal Provider 10/22/23 Jignesh Mathias MD [address] [place] [address] Gastroenterology 09/25/24 Adonay Haq MD [address] [place] [address] Assigned PCP 10/01/24 12/28/24 Omar Carmona MD [address] [place] [address] Assigned PCP 12/29/24 Jason Alvares MD [address] [place] [address] 295 [place], [place] 667495 Assigned Neuroscience Provider 12/29/24 Jignesh Mathias MD [address] [place] [address] Assigned Surgical Provider 12/29/24 Ayad Lopez, PhD LP [address] [place] [address] 748845 Assigned Behavioral Health Provider 02/28/25 Gavi Nieto PANavinC [address] [place] [address] 550015 Physician Cash Control Specialist Dermatology 03/19/25 documented as of this encounter
--- OUTSIDE RECORDS SUMMARY | 2025-03-24 20:28 | XMS_ITS | Encounter Summary ---
Author Organization [place] Address [address] [place] [address]58 Care Team Providers Care Oil Distributor Name Role Phone Rio Jaquez MD Primary Care Provider Barry Kilpatrick MD Unavailable Michelle Henderson RN Unavailable [phone] Rio Jaquez MD Unavailable [phone] Jemima Jaramillo MD Unavailable Unavai Kelley Bautista RN Unavailable [phone] Sydnee Saleem MD Unavailable [phone] Karlene Moya MD Unavailable [phone] Wilbert Quintero OD Unavailable [phone] Rod Gauthier DPM Unavailable [phone] Nallely Hogue RN Unavailable Unavailable Larisa Vargas RN Unavailable Unavailable Frnacisco Lott MD Unavailable [phone] Greg Ortega MD Unavailable [phone] Jan Mahmood MD Unavailable [phone] Brandt Quintana MD Unavailable [phone] Jan Mahmood MD Unavailable Rio Jaquez MD Unavailable Dom Eason MD Unavailable [phone] Jayla Plaza RN Unavailable Jayla Plaza RN Unavailable Sydnee Saleem MD Unavailable Phan Coello MD Unavailable Unavailable Cristian Barragan MD Unavailable Dom Eason MD Unavailable [phone] Jaimie Vernon RN Unavailable Unavailable Ruth Riddle DPM, Podiatry /Foot and Ankle Surgery Unavailable Luis [place] MD Unavailable Jason Alvares MD Unavailable Marquise Hanley MD Unavailable Vlad Ramey MD Unavailable Joesph Crowe MD Unavailable Luis [place] MD Unavailable Michelle Padilla RN Unavailable Unavaila ble Vlad Ramey MD Unavailable Marquise Hanley MD Unavailable Dom Eason MD Unavailable Wagner Oliver MD Unavailable [phone] Laura Epperson NP Unavailable [phone] Thom Taveras MD Unavailable Joesph Crowe MD Unavailable Joesph Crowe MD Unavailable Adonay Haq MD Unavailable [phone] OctoberDenilson MD Unavailable Jason Alvares MD Unavailable Ruth Riddle DPM, Podiatry /Foot and Ankle Surgery Unavailable Omar Carmona MD Primary Care Provider Jignesh Mathias MD Unavailable Adonay Haq MD Unavailable [phone] Omar Carmona MD Unavailable Jason Alvares MD Unavailable Jignesh Mathias MD Unavailable Ayad Lopez PhD LP Unavailable [phone] Gavi iNeto PA-C Unavailable [phone] Encounter Details Date Type Department Care Team (Late st Contact Info) Description 12/04/2020 [facility] Interventional Radiology [address] [place] [phone] Laura Lea, RN Social History Tobacco Use Types Packs/Day Years Used Date Smoking Tobacco: Former Cigarettes 0.5 38.2 0 08/09/1982 - 10/11/2020 Smokeless Tobacco: Never Alcohol Use Standard Drinks/Week Comments Not Currently 0 (1 standard drink = 0.6 oz pur e alcohol) Last drink 10/11/2020 PHQ-2 Answer Date Recorded PHQ-2 Score 1 06/03/2020 Comments No Sex and Gender Information Value Date Recorded Sex Assigned at Female 09/12/2020 12:05 PM MEAT SLICER Legal Sex Female 3:26 AM MEAT SLICER Gender Identity Female 09/12/2020 12:05 PM MEAT SLICER Sexual Orientation Straight 12/19/2021 10 :44 AM [...] 03/26/2025 11:00 AM CDT Therapy Visit [facility] 150 [place] [phone] Jason Alvares MD [address] [place] [address] Chaya Castillo OTR [address] [address] 03/29/2025 10:30 AM CDT Therapy Visit [facility] [address] [facility] [address] [place] [phone] [place] [address]EL 300 [place] [address] 04/02/2025 11:00 AM CDT Therapy Visit [address] [phone] Jason Alvares MD [address] [place] [address] Chaya Castillo, OTR [address] [address] 04/11/2025 12:30 PM CDT Office Visit [facility] Primary Care Clinic [address] 4th [place] [phone] Omar Carmona MD [address] [place] [address] 440135 04/12/2025 2:15 PM CDT Therapy Visit [facility] [place] [address] [place] [address] Jason Alvares MD [address] [place] [address] Chaya Castillo OTR [facility] 150 [facility] [place] [address] 04/16/2025 11:00 AM CDT Therapy [facility] [place] [address] Jason Alvares MD [address] [place] [address] Chaya Castillo [facility]TR [facility] 150 [place] [address] 04/23/2025 11:00 AM CDT [facility] 150 [facility] [place] [address] Jason Alvares MD [address] [place] [address] Chaya Castillo OTR [facility] [place] [facility] 150 [facility] [place] [address] 04/30/2025 11:00 AM CDT Therapy Visit [facility] 150 [facility] [place] [phone] Jason Alvares MD [address] [place] [address] Chaya Castillo OTR [facility] [place] [facility] 150 [facility] [place] [address] 05/15/2025 12:30 PM CDT Office Visit [address] [phone] Marquise Hanley MD [address] [place] [address] 06/08/2025 9:15 AM CDT Office Visit [facility] Hepatology Clinic [address] [phone] Jignesh Mathias MD [address] [place] [address] 804655 11/05/2025 1:45 PM CDT Office Visit [facility] Dermatology [address] 3rd [place] [phone] Gavi Nieto PA-C Dermatology [address] [place] [address] documented as of this encounter Goals Goal [...] Noted Time PHQ-9 Depression Total Score: 12 09/11/2 021 9:43 AM MEAT SLICER documented as of this encounter Care Teams Oil Distributor Relationship Specialty Start Date End Date Rio Jaquez MD [address] [place] [address] [id number] PCP - General Family Practice 12/02/10 07/13/24 Omar Carmona MD [address] [place] [address] 332495 PCP - General Family Medicine 07/14/24 Barry Kilpatrick MD [address] [place] [address] [id number] [place], [place] 010595 Neurology 07/19/14 Michelle Henderson I, RN Nurse Coordinator Neurology 07/19/14 Rio Jaquez MD [address] [place] [address] 4 [place], [place] 934145 Family Practice 10/15/14 Jemima Jaramillo MD clinical account manager 11/20/14 Kelley Chin, TANIA [address] [place] [address] [address] Nurse Coordinator Cardiology 11/04/15 Sydnee Saleem MD 420 [facility] 508 [place], [place] 082665 Cardiology 11/04/15 Karlene Moya MD [address] [place] [address] 429145 Ophthalmology 06/24/17 Wilbert Quintero, OD [address] [place] [address] 805745 Optometry 06/24/17 Rod Gauthier DPM [address] [place] [address] Taxi Driver Primary Podiatric Medicine 06/21/18 Nallely Hogue, RN Registered Nurse 02/20/19 11/23/22 Larisa Vargas, TANIA Specialty Runner Worker Cardiology 04/18/19 03/06/22 Francisco Lott MD [address] [place] [address] Assigned Rheumatology Provider 05/31/20 12/13/21 Greg Ortega MD [address] [place] [address] Assigned Surgical Provider 06/23/20 12/06/21 Jan Mahmood MD [address] [place] [address] Gastroenterology 11/05/20 Brandt Quintana MD [address] [place] [address] Resident 11/05/20 Jan Mahmood MD [address] [place] [address] Assigned Gastroenterology Provider 12/01/20 Rio Jaquez MD [address] [place] [address] 790465 Assigned PCP 11/17/20 09/30/24 Dom Eason MD [address] [address] Internal Medicine 12/02/20 Jayla Plaza, RN Specialty Runner Worker Hepatology 01/09/21 02/13/24 Jayla Plaza, RN Specialty Runner Worker Hepatology 01/10/21 01/10/21 Sydnee Saleem MD [address] [place] [address] [place] [address] Assigned Heart and Vascular Provider 02/02/21 07/24/22 Phna Coello MD Assigned Neuroscience Provider 02/21/21 11/22/21 Cristian Barragan MD 2945 [place] [address] Assigned Infectious Disease Provider 02/21/21 03/06/22 Dom Eason MD [address] [place] [address] 353 [place], [place] 796014 Assigned Nephrology Provider 04/20/21 01/02/22 Jaimie Vernon, TANIA Specialty Runner Worker Cardiology 10/28/21 Ruth Riddle DPM, Podiatry/Foot and Ankle Surgery 12648 [facility] 300 [place], [place] 763747 Assigned Musculoskeletal Provider 11/30/21 09/30/23 Luis [place] MD 909 [place] [address] Assigned Neuroscience Provider 11/23/21 01/02/22 Jason Alvares MD [address] [address] Assigned Neuroscience Provider 01/03/22 05/15/22 Marquise Hanley MD [address] [place] [address] Endocrinology, Diabetes, and Metabolism 03/05/22 Vlad Ramey MD [address] [place] [address] Cardiovascular Disease 05/07/22 Joesph Crowe MD [address] [place] [address] 9[address] Surgery 05/07/22 Luis Arrington MD [address] [place] [address] Assigned Neuroscience Provider 05/16/22 05/14/23 Michelle Padilla RN Specialty Runner Worker Cardiology 07/03/22 Vlad Ramey MD [address] [place] [address]21 Assigned Heart and Vascular Provider 07/25/22 05/28/23 Marquise Hanley MD [address] [place] [address] Assigned Endocrinology Provider 08/15/22 Dom aEson MD [address] [place] [address] Assigned Nephrology Provider 11/28/22 02/19/23 Wagner Oliver MD [address] [place] [address] Critical Care 12/15/22 Laura Epperson NP 717 [facility] 1932 [place] [address] Assigned Nephrology Provider 02/20/23 08/30/24 Thom Taveras MD [address] [place] [address] Assigned Cancer Care Provider 02/06/23 08/20/23 Joesph Crowe MD [address] [place] [address] Surgery 03/17/23 Joesph Crowe MD 909 [place] [address] Assigned Surgical Provider 04/03/23 09/30/24 Adonay Haq MD 909 [place] [address] Internal Medicine 06/14/23OctoberDenilson MD [address] [facility] [address] [place] [address] Assigned Heart and Vascular Provider 05/29/23 11/28/24 Jason Alvares MD 420 [facility] 295 [place] [address] Assigned Neuroscience Provider 05/15/23 11/28/24 Janessa, Ruth J, DPM, Podiatry/Foot and Ankle Surgery [address] [place] [address] Assigned Musculoskeletal Provider 10/22/23 Jignesh Mathias MD [address] [place] [address] 59[address] Gastroenterology 09/25/24 Adonay Haq MD [address] [place] [address] 010485 Assigned PCP 10/01/24 12/28/24 Omar Carmona MD [address] [place] [address] 240145 Assigned PCP 12/29/24 Jason Alvares MD [address] [place] [address] 801895 Assigned Neuroscience Provider 12/29/24 Jignesh Mathias MD [address] [place] [address]641 Assigned Surgical Provider 12/29/24 Ayad Lopez, PhD LP [address] [place] [address] 495495 Assigned Behavioral Health Provider 02/28/25 Gavi Nieto, PA-C [address] [place] [address] 513155 Physician Mold Yard Supervisor Dermatology 03/19/25 documented as of this encounter
--- OUTSIDE RECORDS SUMMARY | 2025-03-24 20:28 | XMS_ITS | Encounter Summary ---
Author Organization [facility] Address [address] [place] [address] Care Team Providers Care Rn Plastic Surgery Name Role Phone Rio Jaquez MD Primary Care Provider Barry Kilpatrick MD Unavailable Michelle Henderson RN Unavailable [phone] Rio Jaquez MD Unavailable [phone] Jemima Jaramillo MD Unavailable Unavai Kelley Bautista RN Unavailable [phone] Sydnee Saleem MD Unavailable [phone] Karlene Moya MD Unavailable [phone] Wilbert Quintero OD Unavailable [phone] Rod Gauthier DPM Unavailable [phone] Nallely Hogue RN Unavailable Unavailable Larisa Vargas RN Unavailable Unavailable Francisco Lott MD Unavailable [phone] Greg Ortega MD Unavailable [phone] Jan Mahmood MD Unavailable [phone] Brandt Quintana MD Unavailable [phone] Jan Mahmood MD Unavailable Rio Jaquez [...] MD Unavailable Joesph Crowe MD Unavailable [phone] Joesph Crowe MD Unavailable [phone] Adonay Haq MD Unavailable [phone] Denilson Srinivasan MD Unavailable [phone] Jason Alvares MD Unavailable Ruth Riddle DPM, Podiatry /Foot and Ankle Surgery Unavailable Omar Carmona MD Primary Care Provider [phone] Jignesh Mathias MD Unavailable Adonay Haq MD Unavailable [phone] Omar Carmona MD Unavailable Jason Alvares MD Unavailable Jignesh Mathias MD Unavailable Ayad Lopez PhD LP Unavailable [phone] Gavi Nieto-C Unavailable [phone] Encounter Details Date Type Department Care Team (Late st Contact Info) Description 09/30/2021 [facility] [address] [address] Jan Mahmood MD [address] [place] [address] Social History Tobacco Use Types Packs/Day Years [...] than three times a week 08/27/2021 Attends [employer] Not on file 08/27 Do you belong to any clubs o r organizations such as pentecostalism groups, unions, fraternal or athletic groups, or [...] Sex Assigned at Female 09/12/2020 12:05 PM TECHNICAL ADJUSTER Legal Sex Female 3:26 AM TECHNICAL ADJUSTER Gender Identity Female 09/12/2020 12:05 PM TECHNICAL ADJUSTER Sexual Orientation Straight 12/19/2021 10 :44 [...] COVID-19? No / Unsure 09/09/2021 11:42 AM TECHNICAL ADJUSTER documented as of this encounter Plan of Treatment Upcoming Encounters Date Type Department Care Team (Late st Contact Info) Description 03/26/2025 11:00 AM CDT Therapy Visit [address] [phone] Jason Alvares MD 420 [facility] 295 [place], [place] 1260[address] Chaya Castillo OTR [facility] [address] [place], [place] [phone] 03/29/2025 10:30 AM CDT Therapy Visit [facility] [address] [place] [phone] [place] [address] MICHAEL [address] [place] [address] 04/02/2025 11:00 AM CDT Therapy Visit [facility] [address] [place] [phone] Jason Alvares MD [address] [place] [address] [id number] Chaya Castillo, OTR [facility] [address] [address] 04/11/2025 12:30 PM CDT Office Visit [facility] [address] 4th [place] [phone] Omar Carmona MD [address] [place] [address] 565915 04/12/2025 2:15 PM CDT Therapy Visit [facility] [address] [place] [phone] Jason Alvares MD [address] [place] [address] Chaya Castillo OTR [facility] 150 [place] [address] 04/16/2025 11:00 AM CDT Therapy Visit [facility] [address] [place] [phone] Jason Alvares MD [address] [place] [address] Chaya Castillo OTR [facility] [address] [facility] [place] [address] 04/23/2025 11:00 AM CDT Therapy Visit [facility] [address] [place] [phone] Jason Alvares MD [address] [place] [address] 794885 Chaya Castillo [facility]TR [facility] [address] [place] [address] 04/30/2025 11:00 AM CDT Therapy Visit [facility] [address] [place] [address] Jason Alvares MD [address] [place] [address] 563085 Chaya Castillo [facility] [address] [place] [address] 05/15/2025 12:30 PM CDT Office Visit [address] [phone] Marquise Hanley MD [address] [place] [address] [phone] 06/08/2025 9:15 AM CDT Office Visit [facility] [address] [phone] Jignesh Mathias MD [address] [place] [address] [phone] 11/05/2025 1:45 PM CDT Office Visit [facility] [place] [address] [facility] 3rd [place] [address] Gavi Nieto PA-C Dermatology [address] [place] [address] [phone] documented as of this encounter Goals Goal [...] Total Score: 5 08/27/19 22 9:25 AM TECHNICAL ADJUSTER documented as of this encounter Care Teams Rn Plastic Surgery Relationship Specialty Start Date End Date Rio Jaquez MD [address] [place] [address] 4 [place] [address] PCP - General Family Practice 12/02/10 07/13/24 Omar Carmona MD [address] [place] [address] PCP - General Family Medicine 07/14/24 Barry Kilpatrick MD [address] [place] [address] [id number] [place] [address] Neurology 07/19/14 Michelle Henderson I, RN Nurse Coordinator Neurology 07/19/14 Rio Jaquez MD [address] [place] [address] 4 [place], [place] 030[address] Family Practice 10/15/14 Jemima Jaramillo MD parachute rigger 11/20/14 Kelley Chin, TANIA [address] [phone] Nurse Coordinator Cardiology 11/04/15 Sydnee Saleem MD [address] [place] [address] 508 [place] [address] Cardiology 11/04/15 Karlene Moya MD [address] [place] [address] Ophthalmology 06/24/17 Wilbert Quintero, OD [address] [place] [address] 146185 Optometry 06/24/17 Rod Gauthier DPM [address] [place] [address] 265635 Patcher Helper Primary Podiatric Medicine 06/21/18 Nallely Hogue, RN Registered Nurse 02/20/19 11/23/22 Larisa Vargas, TANIA Specialty Power And Recovery Superintendent Cardiology 04/18/19 03/06/22 Francisco Lott MD [address] [place] [address] 88 [place], [place] [phone] Assigned Rheumatology Provider 05/31/20 12/13/21 Greg Ortega MD [address] [place] [address] Assigned Surgical Provider 06/23/20 12/06/21 Jan Mahmood MD [address] [place] [address] Gastroenterology 11/05/20 Brandt Quintana MD [address] [place] [address] Resident 11/05/20 Jan Mahmood MD [address] [place] [address] Assigned Gastroenterology Provider 12/01/20 Rio Jaquez MD [address] [address] Assigned PCP 11/17/20 09/30/24 Dom Eason MD [address] [place] [address] Internal Medicine 12/02/20 Jayla Plaza, RN Specialty Power And Recovery Superintendent Hepatology 01/09/21 02/13/24 Sydnee Saleem MD [address] [facility] [address] [place] [address] Assigned Heart and Vascular Provider 02/02/21 07/24/22 Phan Coello MD Assigned Neuroscience Provider 02/21/21 11/22/21 Cristian Barragan MD [address] [place] [address] Assigned Infectious Disease Provider 02/21/21 03/06/22 Dom Eason MD 717 [facility] 353 [place] [address] Assigned Nephrology Provider 04/20/21 01/02/22 Jaimie Vernon, RN Specialty Power And Recovery Superintendent Cardiology 10/28/21 Ruth Riddle DPM, Podiatry/Foot and Ankle Surgery [address] [address] Assigned Musculoskeletal Provider 11/30/21 09/30/23 Luis Arrington MD [address] [place] [address] Assigned Neuroscience Provider 11/23/21 01/02/22 Jason Alvares MD [address] [place] [address] 295 [place] [address] Assigned Neuroscience Provider 01/03/22 05/15/22 Marquise Hanley MD [address] [place] [address] Endocrinology, Diabetes, and Metabolism 03/05/22 Vlad Ramey MD [address] [place] [address] [phone] Cardiovascular Disease 05/07/22 Joesph Crowe MD [address] [place] [address] Surgery 05/07/22 Luis Arrington MD [address] [place] [address] Assigned Neuroscience Provider 05/16/22 05/14/23 Michelle Padilla, RN Specialty Power And Recovery Superintendent Cardiology 07/03/22 Vlad Ramey MD [address] [place] [address] 667105 Assigned Heart and Vascular Provider 07/25/22 05/28/23 Marquise Hanley MD [address] [place] [address] Assigned Endocrinology Provider 08/15/22 Dom Eason MD 7 [facility] 353 [place] [address] Assigned Nephrology Provider 11/28/22 02/19/23 Wagner Oliver MD [address] [place] [address] Critical Care 12/15/22 Laura Epperson NP 7 [facility] [address] [place] [address] Assigned Nephrology Provider 02/20/23 08/30/24 Thom Taveras MD [facility] [address] [place] [address] Assigned Cancer Care Provider 02/06/23 08/20/23 Joesph Crowe MD [address] [place] [address] [phone] Surgery 03/17/23 Joesph Crowe MD [address] [place] [address] Assigned Surgical Provider 04/03/23 09/30/24 Adonay Haq MD [address] [place] [address] Internal Medicine 06/14/23October, Denilson Jackson MD [address] [facility] [address] [place] [address] Assigned Heart and Vascular Provider 05/29/23 11/28/24 Jason Alvares MD [address] [place] [address] Assigned Neuroscience Provider 05/15/23 11/28/24 Ruth Riddle DPM, Podiatry/Foot and Ankle Surgery [address] [place] [address] Assigned Musculoskeletal Provider 10/22/23 Jignesh Mathias MD [address] [place] [address] Gastroenterology 09/25/24 Adonay Haq MD [address] [place] [address] Assigned PCP 10/01/24 12/28/24 Omar Carmona MD [address] [place] [address] Assigned PCP 12/29/24 Jason Alvares MD [address] [place] [address] Assigned Neuroscience Provider 12/29/24 Jignesh Mathias MD [address] [place] [address] Assigned Surgical Provider 12/29/24 Ayad Lopez, PhD LP [address] [place] [address] Assigned Behavioral Health Provider 02/28/25 Gavi Nieto PA-C [address] [place] [address] Physician Dental Biller Dermatology 03/19/25 documented as of this encounter
--- OUTSIDE RECORDS SUMMARY | 2025-03-24 20:28 | XMS_ITS | Encounter Summary ---
Author Organization Junior Address [address] [place] [address] Care Team Providers Care Office Machine Punch Operator Name Role Phone Rio Jaquez MD Primary Care Provider Barry Kilpatrick MD Unavailable Michelle Henderson I RN Unavailable [phone] Rio Jaquez MD Unavailable [phone] Jemima Jaramillo MD Unavailable Unavai Kelley Bautista RN Unavailable [phone] Sydnee Saleem MD Unavailable [phone] Karlene Moya MD Unavailable [phone] Wilbert Quintero OD Unavailable [phone] Rod Gauthier DPM Unavailable Jan Mahmood MD Unavailable [phone] Brandt Quintana MD Unavailable Jan Mahmood MD Unavailable [phone] Rio Jaquez MD Unavailable [phone] Dom Eason MD Unavailable Jayla Plaza RN [...] Unavailable [phone] Wagner Oliver MD Unavailable [phone] Laura Epperson NP Unavailable [phone] Thom Taveras MD Unavailable [phone] Joesph Crowe MD Unavailable [phone] Joesph Crowe MD Unavailable [phone] Adonay Haq MD Unavailable +[phone]- Denilson Srinivasan MD Unavailable + [phone] Jason Alvares MD Unavailable Ruth Riddle DPM, Podiatry /Foot and Ankle Surgery Unavailable Omar Caromna MD Primary Care Provider +[phone] Jignesh Mathias MD Unavailable Adonay Haq MD Unavailable +[phone]- Omar Carmona MD Unavailable [phone] Jason Alvares MD Unavailable Jignesh Mathias MD Unavailable Ayad Lopez PhD LP Unavailable [phone] Gavi Nieto PA-C Unavailable Encounter Details Date Type Department Care Team (Late st Contact Info) Description 03/11/2023 MyC Medical Advice [facility] [address] [phone] Jayla Plaza RN Alcoholic cirrhosis of liver without ascites (H) (Primary Dx) Social History Tobacco Use [...] than three times a week 08/27/2021 Attends [employer] Not on file 08/27 Do you belong to any clubs o r organizations such as yazidi groups, unions, fraternal or athletic groups, or [...] Answer Date Recorded PHQ-2 Score 2 03/15/2023 [facility] - Occupational Stress [...] place to sleep or slept in a fdc (including now)? No 08/27/2021 Comments No Sex and Gender Information Value Date Recorded Sex Assigned at Female 09/12/2020 12:05 PM DIRECTOR OF GRADUATE ADMISSIONS Legal Sex Female 3:26 AM DIRECTOR OF GRADUATE ADMISSIONS Gender Identity Female 09/12/2020 12:05 PM DIRECTOR OF GRADUATE ADMISSIONS Sexual Orientation Straight 12/19/2021 10 :44 AM [...] suspected to have Coronavirus/COVID-19? No / Unsure 03/14/2023 1:43 PM CDT documented as of this encounter Plan of Treatment Upcoming Encounters Date Type Department Care Team (Late st Contact Info) Description 03/26/2025 11:00 AM CDT Therapy Visit [address] [phone] Jason Alvares MD [address] [place] [address] [phone] Chaya Castillo OTR FV [address] [address] 03/29/2025 10:30 AM CDT Therapy Visit [facility] [place] [address] [facility] [address] [place] [phone] [place] [address] [place], [place] [address] 04/02/2025 11:00 AM CDT Therapy Visit [address] [phone] Jason Alvares MD [address] 819[address] Castillo, Chaya A, OTR [facility] [address] [place] [address] 04/11/2025 12:30 PM CDT Office Visit [facility] [address] 4th [place] [phone] Omar Carmona MD [address] [place] [address] 04/12/2025 2:15 PM CDT Therapy Visit [facility] [address] [facility] [place] [phone] Jason Alvares MD [address] [place] [address] Chaya Castillo OTR [facility] [address] [facility] [place] [address] 04/16/2025 11:00 AM CDT Therapy Visit [facility] [address] [place] [phone] Jason Alvares MD [address] [place] [address] Chaya Castillo OTR [facility] [address] [place] [address] 04/23/2025 11:00 AM CDT Therapy Visit [facility] [address] [place] [phone] Jason Alvares MD [address] [place] [address] Chaya Castillo OTR [facility] [place] [address] [place] [address] 04/30/2025 11:00 AM CDT Therapy Visit [facility] 150 [place] [phone] Jason Alvares MD 420 [facility] 295 [place] [address] Chaya Castillo, [facility] 150 [place] [address] 05/15/2025 12:30 PM CDT Office Visit [address] [phone] Marquise Hanley MD [address] [place] [address] 06/08/2025 9:15 AM CDT Office Visit [facility] [address] [phone] Jignesh Mathias MD [address] [place] [address] [phone] 11/05/2025 1:45 PM CDT Office Visit [facility] [address] 3rd [place] [phone] Gavi Nieto PA-C Dermatology [address] [place] [address] documented as of this encounter Goals Goal Patient Goal Type Associated Problems Recent Progress Patient-Stated? Author Quit smoking / using tobacco Lifestyle Rio Will MD Note: 06/25/14 planned quit date documented as of this encounter Results * (ABNORMAL) Basic metabolic panel (05/31/2023 8:18 AM CDT) Pathologist [facility] Sodium 144 135 - 145 mmol/L 05/31/2023 8:46 AM CDT [facility] Comment:Reference intervals for this test were updated on 05/04/2023 to more accurately reflect our healthy population. There may be differences in the flagging of prior results with similar values performed with this method. Interpretation of those prior results can be made in the context of the updated reference intervals. Potassium 3.9 3.4 - 5.3 mmol/L 05/31/2023 8:46 AM CDT [facility] Chloride 110(H) 98 - 107 mmol/L 05/31/2023 8:46 AM CDT [facility] Carbon Dioxide (CO2) 25 22 - 29 mmol/L 05/31/2023 8:46 AM CDT [facility] Anion Gap 9 7 - 15 mmol/L 05/31/2023 8:46 AM CDT [facility] Urea Nitrogen 12.3 6.0 - 20.0 mg/dL 05/31/2023 8:46 AM CDT [facility] Creatinine 0.84 0.51 - 0.95 mg/dL 05/31/2023 8:46 AM CDT [facility] GFR Estimate 83 >60 mL/min/1. 73m2 05/31/2023 8:46 AM CDT [facility] Calcium 9.3 8.6 - 10.0 mg/dL 05/31/2023 8:46 AM CDT [facility] Glucose 100(H) 70 - 99 mg/dL 05/31/2023 8:46 AM CDT [facility] Blood STRUCTURE OF RIGHT UPPER LIMB / Unknown Venipuncture / Unknown 05/31/2023 8:18 AM CDT 05/31/2023 8:18 AM CDT us Jan Argueta MD LAB - BLOOD ORDERABLES Final Result [facility] [place] [address] [place] [address] 1st [place] [address] * (ABNORMAL) Hepatic function panel (05/31/2023 8:18 AM CDT) Protein Total 6.9 6.4 - 8.3 g/dL 05/31/2023 8:46 AM CDT [facility] Albumin 4.2 3.5 - 5.2 g/dL 05/31/2023 8:46 AM CDT [facility] Bilirubin Total 2.1(H) <=1.2 mg/dL 05/31/2023 8:46 AM CDT [facility] Alkaline Phosphatase 70 35 - 104 U/L 05/31/2023 8:46 AM CDT [facility] AST 46(H) 0 - 45 U/L 05/31/2023 8:46 AM CDT [facility] Comment:Reference intervals for this test were updated on 01/18/2023 to more accurately reflect our healthy population. There may be differences in the flagging of prior results with similar values performed with this method. Interpretation of those prior results can be made in the context of the updated reference intervals. ALT 15 0 - 50 U/L 05/31/2023 8:46 AM CDT [facility] Comment:Reference intervals for this test were updated on 01/18/2023 to more accurately reflect our healthy population. There may be differences in the flagging of prior results with similar values performed with this method. Interpretation of those prior results can be made in the context of the updated reference intervals. Bilirubin Direct 0.77(H) 0.00 - 0.30 mg/dL 05/31/2023 8:46 AM CDT [facility] Blood STRUCTURE OF RIGHT UPPER LIMB / Unknown Venipuncture / Unknown 05/31/2023 8:18 AM CDT 05/31/2023 8:18 AM CDT us Jan Argueta MD LAB - BLOOD ORDERABLES Final Result [facility] - [address] 1st [place] [address] * (ABNORMAL) INR (05/31/2023 8:18 AM CDT) [facility] INR 1.49(H) 0.85 - 1.15 05/31/2023 8:27 AM CDT [facility] Blood STRUCTURE OF RIGHT UPPER LIMB / Unknown Venipuncture / Unknown 05/31/2023 8:18 AM CDT 05/31/2023 8:18 AM CDT Jan Argueta MD LAB - BLOOD ORDERABLES Final Result [facility] Clin[facility] [address] [facility] 1st Floor Lab Core Lab [place], [place] [address] * (ABNORMAL) CBC with platelets (05/31/2023 8:18 AM CDT) [facility] WBC Count 4.4 4.0 - 11.0 10e3/uL 05/31/2023 8:20 AM CDT [facility] RBC Count 4.22 3.80 - 5.20 10e6/uL 05/31/2023 8:20 AM CDT [facility] Hemoglobin 11.8 11.7 - 15.7 g/dL 05/31/2023 8:20 AM CDT [facility] Hematocrit 35.3 35.0 - 47.0 % 05/31/2023 8:20 AM CDT [facility] MCV 84 78 - 100 fL 05/31/2023 8:20 AM CDT [facility] MCH 28.0 26.5 - 33.0 pg 05/31/2023 8:20 AM CDT [facility] MCHC 33.4 31.5 - 36.5 g/dL 05/31/2023 8:20 AM CDT [facility] RDW 15.5(H) 10.0 - 15.0 % 05/31/2023 8:20 AM CDT [facility] Platelet Count 89(L) 150 - 450 10e3/uL 05/31/2023 8:20 AM CDT [facility] Blood STRUCTURE OF RIGHT UPPER LIMB / Unknown Venipuncture / Unknown 05/31/2023 8:18 AM CDT 05/31/2023 8:18 AM CDT us Jan Argueta MD LAB - BLOOD ORDERABLES Final Result [facility] - [address] 1st [place] [address] documented in this encounter Visit Diagnoses Diagnosis Alcoholic cirrhosis of liver without ascites (H)- Primary Alcoholic cirrhosis of liver documented in this encounter Additional Health Concerns Infection Onset Date Last Indicated Resolved Time MRSA Comment:Added from external infection. 10/23/2020 10/21/2020 Rule Out COVID-19 02/09/2024 02/09/2024 02/09/2024 1:52 AM CDT Assessment Noted Time PHQ-9 Depression Total Score: 9 02/02/20 10:02 AM CDT documented as of this encounter Care Teams Office Machine Punch Operator Relationship Specialty Start Date End Date Rio Jaquez MD [address] [place] [address] PCP - General Family Practice 12/02/10 07/13/24 Omar Carmona MD [address] [place] [address] PCP - General Family Medicine 07/14/24 Barry Kilpatrick MD [address] [place] [address] [id number] [place] [address] Neurology 07/19/14 Michelle Henderson I, RN Nurse Coordinator Neurology 07/19/14 Rio Jaquez MD [address] [place] [address] Family Practice 10/15/14 Jemima Jaramillo MD breeder hen service technician 11/20/14 Kelley Chin RN [address] [phone] Nurse Coordinator Cardiology 11/04/15 Sydnee Saleem MD [address] [place] [address] [address] [place], [place] [phone] Cardiology 11/04/15 Karlene Moya MD [address] [place] [address] [phone] Ophthalmology 06/24/17 Wilbert Quintero, OD [address] [place] [address] [phone] Optometry 06/24/17 Rod Gauthier DPM [address] [place] [address] 777285 Padder Primary Podiatric Medicine 06/21/18 Jan Mahmood MD [address] [place] [address] Gastroenterology 11/05/20 Brandt Quintana MD [address] [place] [address] Resident 11/05/20 Jan Mahmood MD [address] [place] [address] 77799 Assigned Gastroenterology Provider 12/01/20 Rio Jaquez MD [address] [place] [address]120 Assigned PCP 11/17/20 09/30/24 Dom Eason MD [address] [place] [address] Internal Medicine 12/02/20 Jayla Plaza, RN Specialty Otr Owner Operator Hepatology 01/09/21 02/13/24 Jaimie Vernon, TANIA Specialty Otr Owner Operator Cardiology 10/28/21 Ruth Riddle DPM, Podiatry/Foot and Ankle Surgery [address] [address] Assigned Musculoskeletal Provider 11/30/21 09/30/23 Marquise Hanley MD [address] [place] [address] Endocrinology, Diabetes, and Metabolism 03/05/22 Vlad Ramey MD [address] [place] [address]351 Cardiovascular Disease 05/07/22 Joesph Crowe MD [address] [place] [address]79[address] Surgery 05/07/22 Luis Arrington MD [address] [place] [address] 25342 Assigned Neuroscience Provider 05/16/22 05/14/23 Michelle Padilla, RN Specialty Otr Owner Operator Cardiology 07/03/22 Vlad Ramey MD [address] [place] [address] 24365 Assigned Heart and Vascular Provider 07/25/22 05/28/23 Marquise Hanley MD [address] [place] [address] 94176 Assigned Endocrinology Provider 08/15/22 Wagner Oliver MD [address] [place] [address] Critical Care 12/15/22 Laura Epperson NP [address] [place] [address] [address] [place] [address] Assigned Nephrology Provider 02/20/23 08/30/24 Thom Taveras MD [facility] [address], [address] [address] Assigned Cancer Care Provider 02/06/23 08/20/23 Joesph Crowe MD [address] [place] [address]666 Surgery 03/17/23 Joesph Crowe MD [address] [place] [address] Assigned Surgical Provider 04/03/23 09/30/24 Adonay Haq MD [address] [place] [address] Internal Medicine 06/14/23OctoberDenilson MD [address] [place] [address] Assigned Heart and Vascular Provider 05/29/23 11/28/24 Jason Alvares MD 420 [facility] 295 [place] [address] Assigned Neuroscience Provider 05/15/23 11/28/24 Ruth Riddle DPM, Podiatry/Foot and Ankle Surgery [address] [place], [place] [phone] Assigned Musculoskeletal Provider 10/22/23 Jignesh Mathias MD [address] [place] [address] 704105 Gastroenterology 09/25/24 Adonay Haq MD [address] [place] [address] 078455 Assigned PCP 10/01/24 12/28/24 Omar Carmona MD [address] [place] [address] 191135 Assigned PCP 12/29/24 Jason Alvares MD [address] [address] Assigned Neuroscience Provider 12/29/24 Jignesh Mathias MD [address] [place] [address]373 Assigned Surgical Provider 12/29/24 Ayad Lopez, PhD LP [address] [place] [address] Assigned Behavioral Health Provider 02/28/25 Gavi Nieto PA-C [address] [place] [address] Physician Correctional Food Service Supervisor Dermatology 03/19/25 documented as of this encounter
--- OUTSIDE RECORDS SUMMARY | 2025-03-24 20:28 | XMS_ITS | Encounter Summary ---
Author Organization [facility] Address [address] [place] [address] 34407 Care Team Providers Care Fats And Oils Loader Name Role Phone Rio Jaquez MD Primary Care Provider Barry Kilpatrick MD Unavailable Michelle Henderson I RN Unavailable [phone] Rio Jaquez MD Unavailable +[phone] Jemima Jaramillo MD Unavailable Unavai Kelley Buatista RN Unavailable [phone] Sydnee Saleem MD Unavailable +[phone] Karlene Moya MD Unavailable Wilbert Quintero OD Unavailable +[phone] Rod Gauthier DPM Unavailable Jan Mahmood MD Unavailable +[phone] Brandt Quintana MD Unavailable Jan Mahmood MD Unavailable +[phone] Rio Jaquez MD Unavailable +[phone] Dom Eason MD Unavailable Jayla Plaza RN [...] Unavailable +[phone] Wagner Oliver MD Unavailable +[phone] Laura Epperson NP Unavailable +[phone] Thom Taveras MD Unavailable +[phone] Joesph Crowe MD Unavailable +[phone] Joesph Crowe MD Unavailable +[phone] Adonay Haq MD Unavailable +1- Denilson Srinivasan MD Unavailable + [phone] Jason Alvares MD Unavailable Ruth Riddle DPM, Podiatry /Foot and Ankle Surgery Unavailable Omar Carmona MD Primary Care Provider +1- Jignesh Mathias MD Unavailable Adonay Haq MD Unavailable +1- Omar Carmona MD Unavailable +[phone] Jason Alvares MD Unavailable Jignesh Mathias MD Unavailable Ayad Lopez PhD LP Unavailable [phone] Gavi Nieto PA-C Unavailable Encounter Details Date Type Department Care Team (Late st Contact Info) Description 03/05/2023 [facility] [address] [address] Lizbeth Lopes Social History Tobacco [...] than three times a week 08/27/2021 Attends [employer] Services Not on file 08/27 Do you [...] 08/27/2021 PHQ-2 Answer Date Recorded PHQ-2 Score 0 03/08/2023 [facility] - [...] Sex Assigned at Female 09/12/2020 12:05 PM COUNTER STITCHER Legal Sex Female 3:26 AM COUNTER STITCHER Gender Identity Female 09/12/2020 12:05 PM COUNTER STITCHER Sexual Orientation Straight 12/19/2021 10 :44 AM [...] suspected to have Coronavirus/COVID-19? No / Unsure 02/15/2023 11:55 AM CDT documented as of this encounter Plan of Treatment Upcoming Encounters Date Type Department Care Team (Late st Contact Info) Description 03/26/2025 11:00 AM CDT Therapy Visit [facility] [address] [place] [phone] Jason Alvares MD [address] [place] [address] 160225 Chaya Castillo, OTR [facility] 150 [place], [place] 409907 03/29/2025 10:30 AM CDT Therapy Visit [facility] [address] [facility] [address] [place] [phone] [place] [address] MICHAEL [address] [place], [place] [address]957 04/02/2025 11:00 AM CDT Therapy Visit [facility] [address] [place] [phone] Jason Alvares MD [address] [place] [address] 551375 Chaya Castillo OTR [facility] 150 [place], [place] 646857 04/11/2025 12:30 PM CDT Office Visit [facility] [address] 4th [place] [phone] Omar Carmona MD [address] [place] [address] 04/12/2025 2:15 PM CDT Therapy Visit [facility] [address] [place] [address] Jason Alvares MD [address] [place] [address] Chaya Castillo, OTR [facility] 150 [place] [address] 04/16/2025 11:00 AM CDT Therapy Visit [facility] [address] [place] [address] Jason Alvares MD [address] [place] [address] Chaya Castillo, OTR [facility] 150 [place] [address] 04/23/2025 11:00 AM CDT Therapy Visit [facility] [place] [address] [place] [address] Jason Alvares MD [address] [place] [address] Chaya Castillo, OTR [facility] 150 [facility] [place] [address] 04/30/2025 11:00 AM CDT Therapy Visit [facility] 150 [place] [phone] Jason Alvares MD 420 [facility] 295 [place] [address] CastilloChaya, OTR [facility] 150 [place] [address] 05/15/2025 12:30 PM CDT Office Visit [address] [phone] Marquise Hanley MD [address] [place] [address] 06/08/2025 9:15 AM CDT Office Visit [facility] [address] [phone] Jignesh Mathias MD [address] [place] [address] 11/05/2025 1:45 PM CDT Office Visit [facility] Dermatology [address] 3rd [place] [phone] Gavi Nieto, PA-C Dermatology [address] [place] [address] 124[address] documented as of this encounter Goals Goal [...] documented as of this encounter Care Teams Fats And Oils Loader Relationship Specialty Start Date End Date Rio Jaquez MD [address] [place] [address] 4 [place] [address] PCP - General Family Practice 12/02/10 07/13/24 Omar Carmona MD [address] [place] [address] 961155 PCP - General Family Medicine 07/14/24 Barry Kilpatrick MD [address] [place] [address] [id number] [place], [place] 313675 Neurology 07/19/14 Michelle Henderson I, RN Nurse Coordinator Neurology 07/19/14 Rio Jaquez MD [address] [place] [address] 977595 Family Practice 10/15/14 Jemima Jaramillo MD global upstream marketing manager 11/20/14 Kelley Chin, TANIA [facility] [address] [place] [address] 992805 Nurse Coordinator Cardiology 11/04/15 Sydnee Saleem MD [address] [place] [address] 508 [place], [place] 515225 Cardiology 11/04/15 Karlene Moya MD [address] [place] [address] 574145 Ophthalmology 06/24/17 Wilbert Quintero OD [address] [place] [address] Optometry 06/24/17 Rod Gauthier DPM [address] [place] [address] 33965 MD Biology Intern Primary Podiatric Medicine 06/21/18 Jan Mahmood MD [address] [place] [address] 97[address] Gastroenterology 11/05/20 Brandt Quintana MD [address] [place] [address] 84756 Resident 11/05/20 Jan Mahmood MD [address] [place] [address] 47[address] Assigned Gastroenterology Provider 12/01/20 Rio Jaquez MD [address] [place] [address] [phone] Assigned PCP 11/17/20 09/30/24 Dom Eason MD [address] 601724 Internal Medicine 12/02/20 Jayla Plaza, RN Specialty Mri Assistant Hepatology 01/09/21 02/13/24 Jaimie Vernon, TANIA Specialty Mri Assistant Cardiology 10/28/21 Ruth Riddle DPM, Podiatry/Foot and Ankle Surgery [address] [place] [address] Assigned Musculoskeletal Provider 11/30/21 09/30/23 Marquise Hanley MD [address] [place] [address] 18932 Endocrinology, Diabetes, and Metabolism 03/05/22 Vlad Ramey MD [address] [place] [address] 869835 Cardiovascular Disease 05/07/22 Joesph Crowe MD [address] [place] [address] 229685 Surgery 05/07/22 Luis Arrington MD [address] [place] [address] 36361 Assigned Neuroscience Provider 05/16/22 05/14/23 Michelle Padilla RN Specialty Mri Assistant Cardiology 07/03/22 Vlad Ramey MD [address] [place] [address] 61104 Assigned Heart and Vascular Provider 07/25/22 05/28/23 Marquise Hanley MD [address] [place] [address] 17471 Assigned Endocrinology Provider 08/15/22 Wagner Oliver MD [address] [address] Critical Care 12/15/22 Laura Epperson NP 717 [facility] 1932 [place] [address] Assigned Nephrology Provider 02/20/23 08/30/24 Thom Taveras MD [facility] [address] [place] [address] Assigned Cancer Care Provider 02/06/23 08/20/23 Joesph Crowe MD [address] [place] [address] 24882 Surgery 03/17/23 Joesph Crowe MD [address] [place] [address] 48443 Assigned Surgical Provider 04/03/23 09/30/24 Adonay Haq MD [address] [place] [address] 7[address] Internal Medicine 06/14/23OctoberDenilson MD [address] [facility] [address] [place] [address] Assigned Heart and Vascular Provider 05/29/23 11/28/24 Jason Alvares MD 420 [facility] 295 [place] [address] Assigned Neuroscience Provider 05/15/23 11/28/24 Ruth Riddle DPM, Podiatry/Foot and Ankle Surgery [address] [place] [address] Assigned Musculoskeletal Provider 10/22/23 Jignesh Mathias MD [address] [place] [address] 75689 Gastroenterology 09/25/24 Adonay Haq MD [address] [place] [address] 935185 Assigned PCP 10/01/24 12/28/24 Omar Carmona MD [address] [place] [address] 069405 Assigned PCP 12/29/24 Jason Alvares MD [address] [place] [address] 354845 Assigned Neuroscience Provider 12/29/24 Jignesh Mathias MD [address] [place] [address] 307615 Assigned Surgical Provider 12/29/24 Ayad Lopez, PhD LP [address] [place] [address] 341785 Assigned Behavioral Health Provider 02/28/25 Gavi Nieto, PA-C [address] [place] [address] 183725 Physician Airport Clerk Dermatology 03/19/25 documented as of this encounter
--- OUTSIDE RECORDS SUMMARY | 2025-03-24 20:28 | XMS_ITS | Encounter Summary ---
Author Organization [facility] Address [address] [place] [address]15 Care Team Providers Care Sheet Metal Shop Foreman Name Role Phone Rio Jaquez MD Primary Care Provider Barry Kilpatrick MD Unavailable Michelle Henderson I RN Unavailable [phone] Rio Jaquez MD Unavailable +[phone] Jemima Jaramillo MD Unavailable Unavai Kelley Bautista RN Unavailable [phone] Sydnee Saleem MD Unavailable [phone] Karlene Moya MD Unavailable [phone] Wilbert Quintero OD Unavailable +[phone] Rod Gauthier DPM Unavailable Jan Mahmood MD Unavailable [phone] Brandt Quintana MD Unavailable Jan Mahmood MD Unavailable +[phone] Rio Jaquez MD Unavailable [phone] Dom Eason MD Unavailable Jayla Plaza RN Unavailable +[phone] Jaimie Vernon RN Unavailable Unavailable Marquise Hanley MD Unavailable +[phone] Vlad Ramey MD Unavailable +[phone] Joesph Crowe MD Unavailable + [phone] Michelle Padilla RN Unavailable Unavaila ble Marquise Hanley MD Unavailable +[phone] Wagner Oliver MD Unavailable [phone] Laura Epperson NP Unavailable +[phone] Joesph Crowe MD Unavailable [phone] Joesph Crowe MD Unavailable + [phone] Adonay Haq MD Unavailable [phone] Denilson Srinivasan MD Unavailable + [phone] Jason Alvares MD Unavailable Ruth Riddle DPM, Podiatry /Foot and Ankle Surgery Unavailable Omar Carmona MD Primary Care Provider [phone] Jignesh Mathias MD Unavailable Adonay Haq MD Unavailable [phone] Omar Carmona MD Unavailable +[phone] Jason Alvares MD Unavailable Jignesh Mathias MD Unavailable Ayad Lopez PhD LP Unavailable [phone] Gavi Nieto PA-C Unavailable [phone] Encounter Details Date Type Department Care Team (Late st Contact Info) Description 01/11/2024 [facility] [address] [address] Melissa Dinh Social History Tobacco Use Types Packs/Day Years Used Date Smoking Tobacco: Every Day Cigarettes 1 42.6 Started: 08/09/1982 Other Smokeless Tobacco: Never [...] PHQ-2 Answer Date Recorded PHQ-2 Score 2 08/26/2023 [facility] - Occupational Stress Questionnaire Answer Date [...] motionally safe where you currently live? Yes 07/14/2023 Within the past 12 months, h ave you been hit, slapped, kicked or otherwise physically hurt by someone? No 07/14/2023 Within the past 12 months, h ave you been humiliated or emotionally abused in other ways by your partner or ex-partner? 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 Legal Sex Female 3:26 AM REINFORCING STEEL WORKER Gender Identity Female 09/12/2020 12:05 PM REINFORCING STEEL WORKER Sexual Orientation Straight 12/19/2021 10 :44 [...] CDT Therapy Visit [facility] 150 [place] [address] Jason Alvares MD [address] [place] [place] [address] Chaya Castillo OTR [facility] 150 [place] [address] 03/29/2025 10:30 AM CDT Therapy Visit [facility] [address] [place] [place] [phone] [place] [address] [place] [address] 04/02/2025 11:00 AM CDT Therapy Visit [address] [phone] Jason Alvares MD [address] [place] [place] [address] Chaya Castillo [facility]TR [facility] [address] [place] [address] 04/11/2025 12:30 PM CDT Office Visit [facility] [address] [phone] Omar Carmona MD [address] [place] [address] 04/12/2025 2:15 PM CDT Therapy [facility] 150 [place] [phone] Jason Alvares MD [address] [place] [place] [address] Chaya Castillo OTR [facility] 150 [place] [address] 04/16/2025 11:00 AM CDT Therapy Visit [facility] [address] [place] [address] Jason Alvares MD [address] [place] [place] [address] Chaya Castillo [facility]TR [facility] 150 [place] [address] 04/23/2025 11:00 AM CDT Therapy Visit [facility] 150 [place] [address] Jason Alvares MD [address] [place] [place] [address] Chaya Castillo OTR [facility] 150 [place] [address] 04/30/2025 11:00 AM CDT Therapy Visit [address] [phone] Jason Alvares MD [address] [place] [place] [address] Chaya Castillo [facility]TR [facility] 150 [place] [address] 05/15/2025 12:30 PM CDT Office Visit [address] [address] Marquise Hanley MD [address] [place] [address] 06/08/2025 9:15 AM CDT Office Visit [facility] Hepatology Clinic [address] [phone] Jignesh Mathias MD [address] [place] [address] 969175 11/05/2025 1:45 PM CDT Office Visit [facility] Dermatology Clinic [address] 3rd [place] [address] Gavi Nieto PA-C Dermatology [address] [place] [address] 16689 documented as of this encounter Goals Goal [...] Noted Time PHQ-9 Depression Total Score: 9 06/14/20 23 7:18 AM REINFORCING STEEL WORKER documented as of this encounter Care Teams Sheet Metal Shop Foreman Relationship Specialty Start Date End Date Rio Jaquez MD [address] [place] [address] [address] [place] [address] PCP - General Family Practice 12/02/10 07/13/24 Omar Carmona MD [address] [place] [address] [phone] PCP - General Family Medicine 07/14/24 Barry Kilpatrick MD [address] [place] [address] [id number] [place] [address] Neurology 07/19/14 Michelle Henderson I, RN Nurse Coordinator Neurology 07/19/14 Rio Jaquez MD 9 [facility] 4 [place], [place] 057725 Family Practice 10/15/14 Jemima Jaramillo MD sales team leader 11/20/14 Kelley Chin, TANIA [address] 551105 Nurse Coordinator Cardiology 11/04/15 Sydnee Saleem MD [address] [place] [address] 508 [place], [place] [phone] Cardiology 11/04/15 Karlene Moya MD [address] [place] [address] 511555 Ophthalmology 06/24/17 Wilbert Quintero, OD [address] [place] [address] 834235 Optometry 06/24/17 Rod Gauthier DPM [address] [place] [address] 540245 Java Sdet Primary Podiatric Medicine 06/21/18 Jan Mahmood MD [address] [place] [address] 381345 Gastroenterology 11/05/20 Brandt Quintana MD [address] [place] [address] Resident 11/05/20 Jan Mahmood MD [address] [facility] 2A [place] [address] Assigned Gastroenterology Provider 12/01/20 Rio Jaquez MD [address] [place] [address] 4 [place] [address] Assigned PCP 11/17/20 09/30/24 Dom Eason MD 7 [facility] 353 [place] [address] Internal Medicine 12/02/20 Jayla Plaza, RN Specialty Asp Net Programmer Hepatology 01/09/21 02/13/24 Jaimie Vernon, TANIA Specialty Asp Net Programmer Cardiology 10/28/21 Marquise Hanley MD [address] [place] [address] 03975 Endocrinology, Diabetes, and Metabolism 03/05/22 Vlad Ramey MD [address] [place] [address] 18975 Cardiovascular Disease 05/07/22 Joesph Crowe MD [address] [place] [address] 901115 Surgery 05/07/22 Michelle Padilla, RN Specialty Asp Net Programmer Cardiology 07/03/22 Marquise Hanley MD [address] [place] [address] 94111 Assigned Endocrinology Provider 08/15/22 Wagner Oliver MD [address] [place] [address] Critical Care 12/15/22 Laura Epperson NP 717 [facility] 1932 [place] [address] Assigned Nephrology Provider 02/20/23 08/30/24 Joesph Crowe MD [address] [place] [address] 68267 Surgery 03/17/23 Joesph Crowe MD [address] [place] [address] 59092 Assigned Surgical Provider 04/03/23 09/30/24 Adonay Haq MD [address] [place] [address] 10777 Internal Medicine 06/14/23OctoberDenilson MD [address] [facility] [address] [place] [address] Assigned Heart and Vascular Provider 05/29/23 11/28/24 Jason Alvares MD [address] [place] [address] 295 [place] [address] Assigned Neuroscience Provider 05/15/23 11/28/24 Ruth Riddle, BILLY, Podiatry/Foot and Ankle Surgery [address] [place] [address] 39698 Assigned Musculoskeletal Provider 10/22/23 Jignesh Mathias MD [address] [place] [address] Gastroenterology 09/25/24 Adonay Haq MD [address] [place] [address] 766585 Assigned PCP 10/01/24 12/28/24 Omar Carmona MD [address] [place] [address] 414645 Assigned PCP 12/29/24 Jason Alvares MD [address] [place] [place] [address] 334475 Assigned Neuroscience Provider 12/29/24 Jignesh Mathias MD [address] [place] [address] 80484 Assigned Surgical Provider 12/29/24 Ayad Lopez, PhD LP [address] [place] [address] 695585 Assigned Behavioral Health Provider 02/28/25 Gavi Nieto, PA-C [address] [place] [address] [phone] Physician Private Branch Exchange Operator Dermatology 03/19/25 documented as of this encounter
--- OUTSIDE RECORDS SUMMARY | 2025-03-24 20:28 | XMS_ITS | Encounter Summary ---
Author Organization [place] Address [address] [place] [address] 11436 Care Team Providers Care Endoscopy Registered Nurse Name Role Phone Rio Jaquez MD Primary Care Provider Barry Kilpatrick MD Unavailable Michelle Henderson RN Unavailable [phone] Rio Jaquez MD Unavailable [phone] Jemima Jaramillo MD Unavailable Unavai Kelley Bautista RN Unavailable [phone] Sydnee Saleem MD Unavailable +[phone] Karlene Moya MD Unavailable [phone] Wilbert Quintero OD Unavailable +[phone] Rod Gauthier DPM Unavailable [phone] Nallely Hogue RN Unavailable Unavailable Larisa Vargas RN Unavailable Unavailable Francisco Lott MD Unavailable +[phone] Greg Ortega MD Unavailable [phone] Jan Mahmood MD Unavailable [phone] Brandt Quintana MD Unavailable +[phone] Jan Mahmood MD Unavailable Rio Jaquez MD Unavailable [phone] Dom Eason MD Unavailable Jayla Plaza RN Unavailable Sydnee Saleem MD Unavailable Phan Coello MD Unavailable Unavailable Cristian Barragan MD Unavailable Dom Eason MD Unavailable Jaimie Vernon RN Unavailable Unavailable Ruht Riddle DPM, Podiatry /Foot and [...] MD Unavailable Joesph Crowe MD Unavailable [phone] Joesph Crowe MD Unavailable [phone] Adonay Haq MD Unavailable [phone] Denilson Srinivasan MD Unavailable [phone] Jason Alvares MD Unavailable Ruth Riddle DPM, Podiatry /Foot and Ankle Surgery Unavailable Omar Carmona MD Primary Care Provider [phone] Jignesh Mathias MD Unavailable Adonay Haq MD Unavailable [phone] Omar Carmona MD Unavailable Jason Alvares MD Unavailable Jignesh Mathias MD Unavailable Ayad Lopez PhD LP Unavailable [phone] Gavi Nieto-C Unavailable [phone] Encounter Details Date Type Department Care Team (Late st Contact Info) Description 09/17/2021 [facility]ology [facility] [address] [address] Jan Mahmood MD [address] [place] [address] Social History Tobacco Use Types Packs/Day Years [...] than three times a week 08/27/2021 Attends [employer] Not on file 08/27 Do you [...] Answer Date Recorded PHQ-2 Score 2 08/27/2021 [facility] [...] Sex Assigned at Female 09/12/2020 12:05 PM ELECTRONICS TECHNICIAN APPRENTICE Legal Sex Female 3:26 AM ELECTRONICS TECHNICIAN APPRENTICE Gender Identity Female 09/12/2020 12:05 PM ELECTRONICS TECHNICIAN APPRENTICE Sexual Orientation Straight 12/19/2021 10 :44 AM [...] COVID-19? No / Unsure 09/09/2021 11:42 AM ELECTRONICS TECHNICIAN APPRENTICE documented as of this encounter Plan of Treatment Upcoming Encounters Date Type Department Care Team (Late st Contact Info) Description 03/26/2025 11:00 AM CDT Therapy Visit [address] [phone] Jason Alvares MD 420 [facility] 295 [place], [place] [address] Chaya Castillo OTR [facility] 150 [place], [place] [phone] 03/29/2025 10:30 AM CDT Therapy Visit [facility] [address] [place] [phone] [place] [address] MICHAEL 300 [place] [address] 04/02/2025 11:00 AM CDT Therapy Visit [facility] 150 [place] [phone] Jason Alvares MD [address] [place] [address] 762205 Chaya Castillo, OTR F[facility] [address] [address] 04/11/2025 12:30 PM CDT Office Visit [facility] [address] 4th [place] [phone] Omar Carmona MD [address] [place] [address] 458145 04/12/2025 2:15 PM CDT Therapy Visit [facility] 150 [place] [phone] Jason Alvares MD [address] [place] [address] Chaya Castillo OTR FV [facility] 150 [place] [address] 04/16/2025 11:00 AM CDT Therapy Visit [facility] 150 [place] [phone] Jason Alvares MD [address] [place] [address] Chaya Castillo OTR [facility] 150 [place] [address] 04/23/2025 11:00 AM CDT Therapy Visit [facility] 150 [place] [address] Jason Alvares MD [address] [place] [address] 140835 Chaya Castillo OTR [facility] 150 [place] [address] 04/30/2025 11:00 AM CDT Therapy Visit [facility] 150 [place] [address] Jason Alvares MD [address] [place] [address] 393935 Chaya Castillo [facility]TR [facility] 150 [place] [address] 05/15/2025 12:30 PM CDT Office Visit [address] [phone] Marquise Hanley MD [address] [place] [address] 330295 06/08/2025 9:15 AM CDT Office Visit [facility] [address] [phone] Jignesh Mathias MD [address] [place] [address] 799635 11/05/2025 1:45 PM CDT Office Visit [facility] [place] [address] [facility] 3rd [place] [address] Gavi Nieto PA-C Dermatology [address] [place] [address] [phone] documented as of this encounter Goals Goal [...] Total Score: 5 08/27/19 22 9:25 AM ELECTRONICS TECHNICIAN APPRENTICE documented as of this encounter Care Teams Endoscopy Registered Nurse Relationship Specialty Start Date End Date Rio Jaquez MD [address] [place] [address] 4 [place] [address] PCP - General Family Practice 12/02/10 07/13/24 Omar Carmona MD [address] [place] [address] 11358 PCP - General Family Medicine 07/14/24 Barry Kilpatrick MD [address] [place] [address] [id number] [place] [address] Neurology 07/19/14 Michelle Henderson I, RN Nurse Coordinator Neurology 07/19/14 Rio Jaquez MD [address] [place] [address] 4 [place], [place] 637275 Family Practice 10/15/14 Jemima Jaramillo MD water pollution specialist 11/20/14 Kelley Chin, TANIA [address] 205555 Nurse Coordinator Cardiology 11/04/15 Sydnee Saleem MD [address] [place] [address] 508 [place] [address] Cardiology 11/04/15 Karlene Moya MD [address] [place] [address] Ophthalmology 06/24/17 Wilbert Quintero, OD [address] [place] [address] 680325 Optometry 06/24/17 Rod Gauthier DPM [address] [place] [address] 485775 Senior Insight Manager Primary Podiatric Medicine 06/21/18 Nallely Hogue, RN Registered Nurse 02/20/19 11/23/22 Larisa Vargas, TANIA Specialty Forest Technician Cardiology 04/18/19 03/06/22 Francisco Lott MD [address] [place] [address] 88 [place], [place] 328685 Assigned Rheumatology Provider 05/31/20 12/13/21 Greg Ortega MD [address] [place] [address] Assigned Surgical Provider 06/23/20 12/06/21 Jan Mahmood MD [address] [place] [address] Gastroenterology 11/05/20 Brandt Quintana MD [address] [place] [address] Resident 11/05/20 Jan Mahmood MD [address] [place] [address] 22614 Assigned Gastroenterology Provider 12/01/20 Rio Jaquez MD [address] [address] Assigned PCP 11/17/20 09/30/24 Dom Eason MD [address] [place] [address] Internal Medicine 12/02/20 Jayla Plaza, RN Specialty Forest Technician Hepatology 01/09/21 02/13/24 ySdnee Saleem MD [address] [facility] [address] [place] [address] Assigned Heart and Vascular Provider 02/02/21 07/24/22 Phan Coello MD Assigned Neuroscience Provider 02/21/21 11/22/21 Cristian Barragan MD 2945 [place] [address] Assigned Infectious Disease Provider 02/21/21 03/06/22 Dom Eason MD 717 [facility] 353 [place] [address] Assigned Nephrology Provider 04/20/21 01/02/22 Jaimie Vernon, RN Specialty Forest Technician Cardiology 10/28/21 Ruth Riddle DPM, Podiatry/Foot and Ankle Surgery [address] [address] Assigned Musculoskeletal Provider 11/30/21 09/30/23 Luis Arrington MD [address] [place] [address] 85089 Assigned Neuroscience Provider 11/23/21 01/02/22 Jason Alvares MD [address] [place] [address] 295 [place] [address] Assigned Neuroscience Provider 01/03/22 05/15/22 Marquise Hanley MD [address] [place] [address] Endocrinology, Diabetes, and Metabolism 03/05/22 Vlad Raemy MD [address] [place] [address] 020315 Cardiovascular Disease 05/07/22 Joesph Crowe MD [address] [place] [address] 65371 Surgery 05/07/22 Luis Arrington MD [address] [place] [address] Assigned Neuroscience Provider 05/16/22 05/14/23 Michelle Padilla, RN Specialty Forest Technician Cardiology 07/03/22 Vlad Ramey MD [address] [place] [address] 106625 Assigned Heart and Vascular Provider 07/25/22 05/28/23 Marquise Hanley MD [address] [place] [address] 784[address] Assigned Endocrinology Provider 08/15/22 Dom Eason MD 7 [facility] 353 [place] [address] Assigned Nephrology Provider 11/28/22 02/19/23 Wagner Oliver MD 6401 [place] [address] Critical Care 12/15/22 Laura Epperson NP 7 [facility] 1932 [place] [address] Assigned Nephrology Provider 02/20/23 08/30/24 Thom Taveras MD [facility] [address] [place] [address] Assigned Cancer Care Provider 02/06/23 08/20/23 Joesph Crowe MD [address] [place] [address] 040565 Surgery 03/17/23 Joesph Crowe MD [address] [place] [address] 40195 Assigned Surgical Provider 04/03/23 09/30/24 Adonay Haq MD [address] [place] [address]64 Internal Medicine 06/14/23October, Denilson Jackson MD 6405 [facility] [address] [place] [address] Assigned Heart and Vascular Provider 05/29/23 11/28/24 Jason Alvares MD [address] [place] [address] 26021 Assigned Neuroscience Provider 05/15/23 11/28/24 Ruth Riddle DPM, Podiatry/Foot and Ankle Surgery [address] [place] [address] Assigned Musculoskeletal Provider 10/22/23 Jignesh Mathias MD [address] [place] [address] 89910 Gastroenterology 09/25/24 Adonay Haq MD [address] [place] [address] 70276 Assigned PCP 10/01/24 12/28/24 Omar Carmona MD [address] [place] [address] 944[address] Assigned PCP 12/29/24 Jason Alvares MD [address] [place] [address] Assigned Neuroscience Provider 12/29/24 Jignesh Mathias MD [address] [place] [address] Assigned Surgical Provider 12/29/24 Ayad Lopez, PhD LP [address] [place] [address] Assigned Behavioral Health Provider 02/28/25 Gavi Nieto PA-C [address] [place] [address] Physician Drop Hammer Pile Driver Operator Dermatology 03/19/25 documented as of this encounter
--- OUTSIDE RECORDS SUMMARY | 2025-03-24 20:28 | XMS_ITS | Encounter Summary ---
Author Organization [place] Address [address] [place] [address] Care Team Providers Care Presetter Operator Name Role Phone Rio Jaquez MD Primary Care Provider Barry Kilpatrick MD Unavailable Michelle Henderson I RN Unavailable [phone] Rio Jaquez MD Unavailable [phone] Jemima Jaramillo MD Unavailable Unavai Kelley Bautista RN Unavailable [phone] Sydnee Saleem MD Unavailable [phone] Karlene Moya MD Unavailable Wilbert Quintero OD Unavailable [phone] Rod Gauthier DPM Unavailable Jan Mahmood MD Unavailable [phone] Brandt Quintana MD Unavailable [phone] Jan Mahmood MD Unavailable [phone] Rio Jaquez MD Unavailable [phone] Dom Eason MD Unavailable Jayla Plaza RN [...] Unavailable [phone] Wagner Oliver MD Unavailable [phone] Laura Epperson NP Unavailable [phone] Thom Taveras MD Unavailable [phone] Joesph Crowe MD Unavailable [phone] Joesph Crowe MD Unavailable [phone] Adonay Haq MD Unavailable +[phone] Denilson Srinivasan MD Unavailable + [phone] Jason Alvares MD Unavailable Ruth Riddle DPM, Podiatry /Foot and Ankle Surgery Unavailable Omar Carmona MD Primary Care Provider +[phone] Jignesh Mathias MD Unavailable Adonay Haq MD Unavailable +[phone] Omar Carmona MD Unavailable [phone] Jason Alvares MD Unavailable Jignesh Mathias MD Unavailable Ayad Lopez PhD LP Unavailable [phone] Gavi Nieto PA-C Unavailable Encounter Details Date Type Department Care Team (Late st Contact Info) Description 03/11/2023 MyC Medical Advice [facility] Hepatology Clinic [address] [address] Jayla Plaza RN Social History Tobacco Use Types Packs/Day [...] than three times a week 08/27/2021 Attends [employer] [facility] Not on file 08/27 Do you belong to any clubs o r organizations such as mandaeism groups, unions, fraternal or athletic groups, or [...] Answer Date Recorded PHQ-2 Score 2 03/15/2023 [facility] - Occupational [...] Sex Assigned at Female 09/12/2020 12:05 PM JET MECHANIC Legal Sex Female 3:26 AM JET MECHANIC Gender Identity Female 09/12/2020 12:05 PM JET MECHANIC Sexual Orientation Straight 12/19/2021 10 :44 [...] Description 03/26/2025 11:00 AM CDT Therapy Visit [facility] 150 [place] [phone] Jason Alvares MD [address] [place] [address] 177615 Chaya Castillo OTR FV [address] [address] 03/29/2025 10:30 AM CDT Therapy Visit [facility] [address] [facility] [address] [place] [phone] [place] [address] [place] [address] 04/02/2025 11:00 AM CDT Therapy Visit [facility] 150 [place] [phone] Jason Alvares MD [address] [place] [address] 045725 Chaya Castillo OTR FV [facility] 150 [place] [address] 04/11/2025 12:30 PM CDT Office Visit [facility] Primary Care Clinic [address] 4th [place] [phone] Omar Carmona MD [address] [place] [address] 04/12/2025 2:15 PM CDT Therapy Visit [facility] 150 [place] [phone] Jason Alvares MD [address] [place] [address] Chaya Castillo, OTR F[facility] 150 [place] [address] 04/16/2025 11:00 AM CDT Therapy Visit [facility] 150 [facility] [place] [phone] Jason Alvares MD [address] [place] [address] Chaya Castillo, OTR FV [facility] 150 [place] [address] 04/23/2025 11:00 AM CDT Therapy Visit [facility] 150 [place] [phone] Jason Alvares MD [address] [place] [address] Chaya Castillo OTR F[facility] 150 [place] [address] 04/30/2025 11:00 AM CDT Therapy Visit [facility] Rehabilitation Services [facility] 150 [place] [phone] Jason Alvares MD 420 [facility] 295 [place] [address] Chaya Castillo, OTR [facility] 150 [place] [address] 05/15/2025 12:30 PM CDT Office Visit [address] [phone] Marquise Hanley MD [address] [place] [address] 06/08/2025 9:15 AM CDT Office Visit [facility] Hepatology Clinic [address] [phone] Jignesh Mathias MD [address] [place] [address] 276365 11/05/2025 1:45 PM CDT Office Visit [facility] Dermatology Clinic [address] 3rd [place] [address] Gavi Nieto PA-C Dermatology [address] [place] [address] documented as of this encounter Goals Goal [...] documented as of this encounter Care Teams Presetter Operator Relationship Specialty Start Date End Date Rio Jaquez MD [address] [place] [address] 4 [place] [address] PCP - General Family Practice 12/02/10 07/13/24 Omar Carmona MD [address] [place] [address] 103695 PCP - General Family Medicine 07/14/24 Barry Kilpatrick MD [address] [place], [place] [address] [place], [place] [address] Neurology 07/19/14 Michelle Henderson I, RN Nurse Coordinator Neurology 07/19/14 Rio Jaquez MD [address] [place] [address] Family Practice 10/15/14 Jemima Jaramillo MD integrated program teacher 11/20/14 Kelley Chin, TANIA [address] 702305 Nurse Coordinator Cardiology 11/04/15 Sydnee Saleem MD [address] [place] [address] 508 [place], [place] 446[address] Cardiology 11/04/15 Karlene Moya MD [address] [place] [address] Ophthalmology 06/24/17 Wilbert Quintero OD 9 [place] [address] Optometry 06/24/17 Rod Gauthier DPM [address] [place] [address]654 Marking Machine Operator Primary Podiatric Medicine 06/21/18 Jan Mahmood MD [address] [place] [address] 24673 Gastroenterology 11/05/20 Brandt Quintana MD [address] [place] [address]91 Resident 11/05/20 Jan Mahmood MD [address] [place] [address] 70999 Assigned Gastroenterology Provider 12/01/20 Rio Jaquez MD [address] [place] [address] 16059 Assigned PCP 11/17/20 09/30/24 Dom Eason MD [address] [address] Internal Medicine 12/02/20 Jayla Plaza, RN Specialty Commercial Sales Representative Hepatology 01/09/21 02/13/24 Jaimie Vernon, TANIA Specialty Commercial Sales Representative Cardiology 10/28/21 Ruth Riddle DPM, Podiatry/Foot and Ankle Surgery [address] [place] [address] Assigned Musculoskeletal Provider 11/30/21 09/30/23 Marquise Hanley MD [address] [place] [address] 32414 Endocrinology, Diabetes, and Metabolism 03/05/22 Vlad Ramey MD [address] [place] [address] 55673 Cardiovascular Disease 05/07/22 Joesph Crowe MD [address] [place] [address] 26838 MD Surgery 05/07/22 Luis Arrington MD [address] [place] [address] 17297 Assigned Neuroscience Provider 05/16/22 05/14/23 Michelle Padilla RN Specialty Commercial Sales Representative Cardiology 07/03/22 Vlad Ramey MD [address] [place] [address] 19380 Assigned Heart and Vascular Provider 07/25/22 05/28/23 Marquise Hanley MD [address] [place] [address] 09798 Assigned Endocrinology Provider 08/15/22 Wagner Oliver MD [address] [place] [address] Critical Care 12/15/22 Laura Epperson NP 717 [facility] [address] [place] [address] Assigned Nephrology Provider 02/20/23 08/30/24 Thom Taveras MD [address] [place] [address] R105 [place] [address] Assigned Cancer Care Provider 02/06/23 08/20/23 Joesph Crowe MD [address] [place] [address] 17232 Surgery 03/17/23 Joesph Crowe MD [address] [place] [address] 51997 Assigned Surgical Provider 04/03/23 09/30/24 Adonay Haq MD [address] [place] [address] 82441 Internal Medicine 06/14/23OctoberDenilson MD [address] [facility] [address] [place] [address] Assigned Heart and Vascular Provider 05/29/23 11/28/24 Jason Alvares MD [address] [place] [address] 295 [place] [address] Assigned Neuroscience Provider 05/15/23 11/28/24 Ruth Riddle DPM, Podiatry/Foot and Ankle Surgery [address] [place] [address] Assigned Musculoskeletal Provider 10/22/23 Jignesh Mathias MD [address] [place] [address] 11246 Gastroenterology 09/25/24 Adonay Haq MD [address] [place] [address] 522355 Assigned PCP 10/01/24 12/28/24 Omar Carmona MD [address] [place] [address] 26942 Assigned PCP 12/29/24 Jason Alvares MD [address] [place] [address] 287105 Assigned Neuroscience Provider 12/29/24 Jignesh Mathias MD [address] [place] [address] 05403 Assigned Surgical Provider 12/29/24 Ayad Lopez, PhD LP [address] [place] [address] 985065 Assigned Behavioral Health Provider 02/28/25 Gavi Nieto PANavinC [address] [place] [address]455 Physician Wool Sorter Dermatology 03/19/25 documented as of this encounter
--- OUTSIDE RECORDS SUMMARY | 2025-03-24 20:28 | XMS_ITS | Encounter Summary ---
Author Organization [place] Address [address] [place] [address] Care Team Providers Care Boring Machine Operator Production Name Role Phone Rio Jaquez MD Primary Care Provider Barry Kilpatrick MD Unavailable Michelle Henderson RN Unavailable [phone] Rio Jaquez MD Unavailable +[phone] Jemima Jaramillo MD Unavailable Rudolph Vinson MD Unavailable +[phone] Kelley Chin RN Unavailable +[phone] Sydnee Saleem MD Unavailable +[phone] [facility] MD Unavailable +[phone] Alexandria Nelson RN Unavailable +[phone] Karlene Moya MD Unavailable +[phone] Wilbert Quintero OD Unavailable +[phone] Rod Gauthier DPM Unavailable + [phone] Kerrie Verdin PA-C Unavailable +[phone] Nallely Hogue RN Unavailable Unavailable Larisa Vargas RN Unavailable Unavailable Rio Jaquez MD Unavailable +[phone] Ruth Yarbrough MD Unavailable +[phone] Francisco Lott MD Unavailable +[phone] Frida Grace MD Unavailable +[phone] Sydnee Saleem MD Unavailable +[phone] rGeg Ortega MD Unavailable +[phone] Frida Grace MD Unavailable +[phone] Jan Mahmood MD Unavailable +[phone] Brandt Quintana MD Unavailable +[phone] Jan Mahmood MD Unavailable +[phone] Rio Jaquez MD Unavailable +[phone] Dom Eason MD Unavailable + [phone] Jayla Plaza RN Unavailable +[phone] Jayla Plaza RN Unavailable +[phone] Sydnee Saleem MD Unavailable +[phone] Phan Coello MD Unavailable Unavailable Cristian Barragan MD Unavailable +[phone] Dom Eason MD Unavailable + [phone] Jaimie Vernon RN Unavailable Unavailable Ruth Riddle DPM, Podiatry /Foot and Ankle Surgery Unavailable Luis Arrington MD Unavailable +[phone] Jason Alvares MD Unavailable Marquise Hanley MD Unavailable +[phone] Vlad Ramey MD Unavailable +[phone] Joesph Crowe MD Unavailable +[phone] Luis Arrington MD Unavailable +[phone] Michelle Padilla RN Unavailable Unavaila ble Vlad Ramey MD Unavailable +[phone] Marquise Hanley MD Unavailable +[phone] Dom Eason MD Unavailable +[phone] Wagner Oliver MD Unavailable +[phone] Laura Epperson NP Unavailable +[phone] Thom Taveras MD Unavailable +[phone] Joesph Crowe MD Unavailable +[phone] Joesph Crowe MD Unavailable +[phone] Adonay Haq MD Unavailable +[phone] OctoberDenilson MD Unavailable + [phone] Jason Alvares MD Unavailable Ruth RiddleM, Podiatry /Foot and Ankle Surgery Unavailable Omar Carmona MD Primary Care Provider [phone] Jignesh Mathias MD Unavailable Adonay Haq MD Unavailable +[phone] Omar Carmona MD Unavailable +[phone] Jason Alvares MD Unavailable Jignesh Mathias MD Unavailable Ayad Lopez PhD LP Unavailable +[phone] Gavi Nieto PA-C Unavailable +[phone] Encounter Details Date Type Department Care Team (Late st Contact Info) Description 02/11/2017 [facility] 909 [facility] 4th [place] [address] Rod Gauthier DPM 909 [place] [address] Social History Tobacco Use Types Packs/Day Years Used Date Smoking Tobacco: Every Day Cigarettes 1 42.6 Started: 08/09/1982 Smokeless Tobacco: Never Alcohol Use Standard Drinks/Week Comments Yes 0 (1 standard drink = 0.6 oz pur e alcohol) occ Comments No Sex and Gender Information Value Date Recorded Sex Assigned at Female 09/12/2020 12:05 PM FOUNTAIN ATTENDANT Legal Sex Female 3:26 AM FOUNTAIN ATTENDANT Gender Identity Female 09/12/2020 12:05 PM FOUNTAIN ATTENDANT Sexual Orientation Straight 12/19/2021 10 :44 AM CDT Occupation Industry Job Start Date Job End Date on disability for FMS Not on file Not on file Not on file documented as of this encounter Plan of Treatment Upcoming Encounters Date Type Department Care Team (Late st Contact Info) Description 03/26/2025 11:00 AM CDT Therapy Visit [address] [phone] Jason Alvares MD [address] [place] [address] 324375 Chaya Castillo, OTMari SOLANO [address] [address] 03/29/2025 10:30 AM CDT Therapy Visit [facility] 604[address] [facility] [address] [place] [phone] [place] [address] [place], [place] [address]257 04/02/2025 11:00 AM CDT Therapy Visit [address] [phone] Jason Alvares MD [address] [phone] Castillo, Chaya A, OTR [facility] [place] [address] [place] [address] 04/11/2025 12:30 PM CDT Office Visit [facility] Primary [facility] Clinic [address] 4th [place] [phone] Omar Carmona MD [address] [place] [address] 04/12/2025 2:15 PM CDT Therapy Visit [facility] 150 [facility] [phone] Jason Alvares MD [address] [place] [address] Chaya Castillo OTR [facility] 150 [facility] [place] [address] 04/16/2025 11:00 AM CDT Therapy [facility] 150 [facility] [phone] Jason Alvares MD [address] [place] [address] Chaya Castillo OTR [facility] [place] 150 [place] [address] 04/23/2025 11:00 AM CDT Therapy Visit [facility] [address] [place] [phone] Jason Alvares MD [address] [place] [address] Chaya Castillo OTR [facility] [place] 150 [place] [address] 04/30/2025 11:00 AM CDT Therapy Visit [facility] Rehabilitation Services [address] [phone] Jason Alvares MD 420 [facility] 295 [place] [address] Chaya Castillo, OTR [address] [address] 05/15/2025 12:30 PM CDT Office Visit [address] [phone] Marquise Hanley MD [address] [place] [address] 06/08/2025 9:15 AM CDT Office Visit [facility] Hepatology Clinic [address] [phone] Jignesh Mathias MD [address] [place] [address] 081135 11/05/2025 1:45 PM CDT Office Visit [facility] Dermatology Clinic [address] 3rd [place] [address] Gavi Nieto PA-C Dermatology [address] [place] [address] documented as of this encounter Goals Goal [...] Assessment Noted Time PHQ-9 Depression Total Score: 7 01/21/20 16 7:15 AM CDT documented as of this encounter Care Teams Boring Machine Operator Production Relationship Specialty Start Date End Date Rio Jaquez MD [address] [place] [address]558 PCP - General Family Practice 12/02/10 07/13/24 Omar Carmona MD [address] [place] [address] 32852 PCP - General Family Medicine 07/14/24 Barry Kilpatrick MD [address] [place] [address] AN0825KH [place] [address] Neurology 07/19/14 Michelle Henderson RN Nurse Coordinator Neurology 07/19/14 Rio Jaquez MD [address] [place] [address] 6[address]81 Family Practice 10/15/14 Jemima Jaramillo MD computer game designer 11/20/14 Rudolph Leal MD Student in organized health care education/training program 11/27/14 07/04/18 Kelley Chin, TANIA [address] [address] Nurse Coordinator Cardiology 11/04/15 Sydnee Saleem MD 420 [facility] 508 [place], [place] 616985 Cardiology 11/04/15 Eduin Fraga MD 420 [facility] 480 [place], [place] 288385 Hematology 09/17/16 02/25/17 Alexandria Nelson, TANIA Nurse Coordinator Hematology & Oncology 09/17/16 02/25/17 Karlene Moya MD 6 [place], [place] 084005 Ophthalmology 06/24/17 Wilbert Quintero, OD [address] [place] [address] 830495 Optometry 06/24/17 Rod Gauthier DPM [address] [place] [address] 172765 Vp Product Marketing Primary Podiatric Medicine 06/21/18 Kerrie Verdin PA-C [address] [place] [address] 014015 Physician Patrol Sergeant Physician Patrol Sergeant 06/21/1808/07 Nallely Hogue, RN Registered Nurse 02/20/19 11/23/22 Larisa Vargas, TANIA Specialty Lithograph Designer Cardiology 04/18/19 03/06/22 Rio Jaquze MD [address] [place] [address] 470435 Assigned PCP 12/28/19 11/16/20 Ruth Yarbrough MD 420 [facility] 101 [place] [address] Assigned Endocrinology Provider 05/31/20 09/28/20 Francisco Lott MD 515 [facility] 88 [place] [address] Assigned Rheumatology Provider 05/31/20 12/13/21 Frida Grace MD [address] [place] [address] JASON ANDERSON [address] Assigned Pediatric Specialist Provider 05/31/20 09/08/20 Sydnee Saleem MD [address] [place] [address] 6[address] Assigned Heart and Vascular Provider 05/31/20 10/22/20 Greg Ortega MD [address] [place] [address] Assigned Surgical Provider 06/23/20 12/06/21 Frida Grace MD [address] [place] [address] JASON ANDERSON [address] Assigned Surgical Provider 05/31/20 06/22/20 Jan Mahmood MD 516 [facility] [place] [address] Gastroenterology 11/05/20 Brandt Quintana MD [facility]4 [place] [address] Resident 11/05/20 Jan Mahmood MD 516 [facility] P[facility] 2A [place] [address] Assigned Gastroenterology Provider 12/01/20 Rio Jaquez MD 909 [facility] [address] 4 [place], [place] 847785 Assigned PCP 11/17/20 09/30/24 Dom Eason MD 717 [facility] 353 [place], [place] 248674 Internal Medicine 12/02/20 Jayla Plaza, RN Specialty Lithograph Designer Hepatology 01/09/21 02/13/24 Jayla Plaza, RN Specialty Lithograph Designer Hepatology 01/10/21 01/10/21 Sydnee Saleem MD [address] [address] Assigned Heart and Vascular Provider 02/02/21 07/24/22 Phan Coello MD Assigned Neuroscience Provider 02/21/21 11/22/21 Cristian Barragan MD 2945 [place] [address] Assigned Infectious Disease Provider 02/21/21 03/06/22 Dom Eason MD 717 [facility] 353 [place] [address] Assigned Nephrology Provider 04/20/21 01/02/22 Jaimie Vernon, RN Specialty Lithograph Designer Cardiology 10/28/21 Ruth Riddle DPM, Podiatry/Foot and Ankle Surgery [address] [place] [address] Assigned Musculoskeletal Provider 11/30/21 09/30/23 Luis Arrington MD [address] [place] [address] 91832 Assigned Neuroscience Provider 11/23/21 01/02/22 Jason Alvares MD [address] [place] [address] 12722 Assigned Neuroscience Provider 01/03/22 05/15/22 Marquise Hanley MD [address] [place] [address] 42[address] Endocrinology, Diabetes, and Metabolism 03/05/22 Vlad Ramey MD [address] [place] [address] 02850 Cardiovascular Disease 05/07/22 Joesph Crowe MD [address] [place] [address] 02051 Surgery 05/07/22 Luis Arrington MD [address] [place] [address] 00486 Assigned Neuroscience Provider 05/16/22 05/14/23 Michelle Padilla RN Specialty Lithograph Designer Cardiology 07/03/22 Vlad Ramey MD [address] [place] [address] 54703 Assigned Heart and Vascular Provider 07/25/22 05/28/23 Marquise Hanley MD [address] [place] [address] 525[address] Assigned Endocrinology Provider 08/15/22 Dom Eason MD 717 [facility] MICHAEL 353 [place] [address] Assigned Nephrology Provider 11/28/22 02/19/23 Wagner Oliver MD [address] [place] [address] Critical Care 12/15/22 Laura Epperson NP [address] [place] [address] 1932 [place] [address] Assigned Nephrology Provider 02/20/23 08/30/24 Thom Taveras MD [address] [place] [address], R[address] [place] [address] Assigned Cancer Care Provider 02/06/23 08/20/23 Joesph Crowe MD [address] [place] [address]77 Surgery 03/17/23 Joesph Crowe MD [address] [place] [address] 03345 Assigned Surgical Provider 04/03/23 09/30/24 Adonay Haq MD [address] [place] [address] Internal Medicine 06/14/23OctoberDenilson MD [address] [place] [address] Assigned Heart and Vascular Provider 05/29/23 11/28/24 Jason Alvares MD [address] [place] [address] 22421 Assigned Neuroscience Provider 05/15/23 11/28/24 Ruth Riddle DPM, Podiatry/Foot and Ankle Surgery [address] [place] [address] Assigned Musculoskeletal Provider 10/22/23 Jignesh Mathias MD [address] [place] [address] 34[address] Gastroenterology 09/25/24 Adonay Haq MD [address] [place] [address] Assigned PCP 10/01/24 12/28/24 Omar Carmona MD [address] [place] [address] 37204 Assigned PCP 12/29/24 Jason Alvares MD [address] [place] [address] 19117 Assigned Neuroscience Provider 12/29/24 Jignesh Mathias MD [address] [place] [address] 11523 Assigned Surgical Provider 12/29/24 Ayad Lopez, PhD LP [address] [place] [address] Assigned Behavioral Health Provider 02/28/25 Gavi Nieto PA-C [address] [place] [address] Physician Patrol Sergeant Dermatology 03/19/25 documented as of this encounter
--- OUTSIDE RECORDS SUMMARY | 2025-03-24 20:29 | XMS_ITS | Encounter Summary ---
Author Organization [facility] Address [address] [place] [address] Care Team Providers Care Supervisor Counseling And Guidance Name Role Phone Rio Jaquez MD Primary Care Provider Barry Kilpatrick MD Unavailable Michelle Henderson I RN Unavailable [phone] Rio Jaquez MD Unavailable +[phone] Jemima Jaramillo MD Unavailable Unavai Kelley Bautista RN Unavailable +[phone] Sydnee Saleem MD Unavailable +[phone] Karlene Moya MD Unavailable +[phone] Wilbert Quintero OD Unavailable +[phone] Rod Gauthier DPM Unavailable Jan Mahmood MD Unavailable +[phone] Brandt Quintana MD Unavailable Jan Mahmood MD Unavailable +[phone] Rio Jaquez MD Unavailable +[phone] Dom Eason MD Unavailable Jayla Plaza RN Unavailable +[phone] Jaimie Vernon RN Unavailable Unavailable Marquise Hanley MD Unavailable +[phone] Vlad Ramey MD Unavailable +[phone] Joesph Crowe MD Unavailable + [phone] Michelle Padilla RN Unavailable Unavaila ble Marquise Hanley MD Unavailable +-[phone] Wagner Oliver MD Unavailable +[phone] Laura Epperson NP Unavailable + [phone] Joesph Crowe MD Unavailable +[phone] Joesph Crowe MD Unavailable + [phone] Adonay Haq MD Unavailable +[phone] Denilson Srinivasan MD Unavailable + [phone] Jason Alvares MD Unavailable Ruth Riddle DPM, Podiatry /Foot and Ankle Surgery Unavailable Omar Carmona MD Primary Care Provider +[phone] Jignesh Mathias MD Unavailable Adonay Haq MD Unavailable [phone] Omar Carmona MD Unavailable +[phone] Jason Alvares MD Unavailable Jignesh Mathias MD Unavailable Ayad Lopez PhD LP Unavailable +[phone] Gavi Nieto PA-C Unavailable [phone] Encounter Details Date Type Department Care Team (Late st Contact Info) Description 11/09/2023 [facility] Hepatology [address] [address] Jan Mahmood MD 6 [facility] 2A [place] [address] Social History Tobacco Use Types Packs/Day Years [...] any clubs o r organizations such as rastafarian groups, unions, fraternal or athletic groups, or [...] Answer Date Recorded PHQ-2 Score 2 08/26/2023 [facility] - [...] in an abandoned building, in an overnight intermediate, or couch-surfing.) Yes 07/12/2023 Are you worried [...] Sex Assigned at Female 09/12/2020 12:05 PM ELDERLY SITTER Legal Sex Female 3:26 AM ELDERLY SITTER Gender Identity Female 09/12/2020 12:05 PM ELDERLY SITTER Sexual Orientation Straight 12/19/2021 10 :44 AM [...] 03/26/2025 11:00 AM CDT Therapy Visit [address] [phone] Jason Alvares MD [address] [place] [address] 146345 Chaya Castillo, OTR [facility] 150 [place] [address] 03/29/2025 10:30 AM CDT Therapy Visit [facility] [address] [place] [place] [phone] [place] [address] 300 [place], [place] [address] 04/02/2025 11:00 AM CDT Therapy Visit [address] [phone] Jason Alvares MD [address] [place] [address] Chaya Castillo, OTR [address] [address] 04/11/2025 12:30 PM CDT Office Visit [facility] Primary Care Clinic [address] 4th [place] [address] Omar Carmona MD [address] [place] [address] 128755 04/12/2025 2:15 PM CDT Therapy Visit [address] [phone] Jason Alvares MD [address] [place] [address] 849395 Chaya Castillo, OTR [facility] [place] [address] [place] [address] 04/16/2025 11:00 AM CDT Therapy Visit [facility] [place] [address] [place] [phone] Jason Alvares MD [address] [place] [address] Chaya Castillo OTR [facility] 150 [facility] [place] [address] 04/23/2025 11:00 AM CDT Therapy [facility] [place] [phone] Jason Alvares MD [address] [place] [address] Chaya Castillo OTR [facility] [place] 150 [facility] [place] [address] 04/30/2025 11:00 AM CDT Therapy [facility] 150 [facility] [place] [phone] Jason Alvares MD [address] [place] [address] Chaya Castillo OTR [facility] [place] 150 [facility] [address] 05/15/2025 12:30 PM CDT Office Visit [address] [phone] Marquise Hanley MD [address] [place] [address] 06/08/2025 9:15 AM CDT Office Visit [facility] Hepatology Clinic [address] [address] Jignesh Mathias MD [address] [place] [address] 11/05/2025 1:45 PM CDT Office Visit [facility] Dermatology Clinic [address] 3rd [place] [address] Gavi Nieto PA-C Dermatology [address] [place] [address] documented as of this encounter Goals [...] Total Score: 9 06/14/20 23 7:18 AM ELDERLY SITTER documented as of this encounter Care Teams Supervisor Counseling And Guidance Relationship Specialty Start Date End Date Rio Jaquez MD [address] [place] [address] 4 [place] [address] PCP - General Family Practice 12/02/10 07/13/24 Omar Carmona MD [address] [place] [address] PCP - General Family Medicine 07/14/24 Barry Kilpatrick MD [address] [place] [address] [id number] [place], [place] 442505 Neurology 07/19/14 Michelle Henderson I, RN Nurse Coordinator Neurology 07/19/14 Rio Jaquez MD [address] [place] [address] FL 4 [place], [place] 282255 Family Practice 10/15/14 Jemima Jaramillo MD stripper latex 11/20/14 Kelley Chin, TANIA [address] 136695 Nurse Coordinator Cardiology 11/04/15 Sydnee Saleem MD [address] [place] [address] [facility] 508 [place], [place] 580275 Cardiology 11/04/15 Karlene Moya MD [address] [place] [address] 959395 Ophthalmology 06/24/17 Wilbert Quintero, OD [address] [place] [address] 582835 Optometry 06/24/17 Rod Gauthier DPM [address] [place] [address] 703085 Bench Precision Assembler Primary Podiatric Medicine 06/21/18 Jan Mahmood MD [address] [place] [address] [address] [place], [place] 652265 Gastroenterology 11/05/20 Brandt Quintana MD 1414 [place] [address] Resident 11/05/20 Jan Mahmood MD 516 [facility] 2A [place] [address] Assigned Gastroenterology Provider 12/01/20 Rio Jaquez MD [address] [place] [address] FL 4 [place], [place] 907935 Assigned PCP 11/17/20 09/30/24 Dom Eason MD 717 [facility] MICHAEL 353 [place] [address] Internal Medicine 12/02/20 Jayla Plaza, RN Specialty Top Taper Machine Hepatology 01/09/21 02/13/24 Jaimie Vernon, RN Specialty Top Taper Machine Cardiology 10/28/21 Marquise Hanley MD [address] [place] [address] Endocrinology, Diabetes, and Metabolism 03/05/22 Vlad Ramey MD [address] [place] [address] 79724 Cardiovascular Disease 05/07/22 Joesph Crowe MD [address] [place] [address] 26602 Surgery 05/07/22 Michelle Padilla, RN Specialty Top Taper Machine Cardiology 07/03/22 Marquise Hanley MD [address] [place] [address] 63349 Assigned Endocrinology Provider 08/15/22 Wagner Oliver MD [address] [place] [address] Critical Care 12/15/22 Laura Epperson NP 717 [facility] 1932 [place] [address] Assigned Nephrology Provider 02/20/23 08/30/24 Joesph Crowe MD [address] [place] [address] 418035 Surgery 03/17/23 Joesph Crowe MD [address] [place] [address] 275475 Assigned Surgical Provider 04/03/23 09/30/24 Adonay Haq MD [address] [place] [address] 987445 Internal Medicine 06/14/23OctoberDenilson MD [address] [place] [address] Assigned Heart and Vascular Provider 05/29/23 11/28/24 Jason Alvares MD [address] [place] [address] 295 [place], [place] 512555 Assigned Neuroscience Provider 05/15/23 11/28/24 Ruth Riddle DPM, Podiatry/Foot and Ankle Surgery [address] [place] [address] Assigned Musculoskeletal Provider 10/22/23 Jignesh Mathias MD [address] [place] [address] 862305 Gastroenterology 09/25/24 Adonay Haq MD [address] [place] [address] Assigned PCP 10/01/24 12/28/24 Omar Carmona MD [address] [place] [address] 917085 Assigned PCP 12/29/24 Jason Alvares MD [address] [place] [address] 262155 Assigned Neuroscience Provider 12/29/24 Jignesh Mathias MD [address] [place] [address] 06735 Assigned Surgical Provider 12/29/24 Ayad Lopez, PhD LP [address] [place] [address] 295105 Assigned Behavioral Health Provider 02/28/25 Gavi Nieto PANavinC [address] [place] [address] 31797 Physician Marbleizer Dermatology 03/19/25 documented as of this encounter
--- OUTSIDE RECORDS SUMMARY | 2025-03-24 20:29 | XMS_ITS | Encounter Summary ---
Author Organization [facility] Address [address] [place] [address] Care Team Providers Care Machine Sprayer Name Role Phone Rio Jaquez MD Primary Care Provider Barry Kilpatrick MD Unavailable Michelle Henderson I RN Unavailable [phone] Rio Jaquez MD Unavailable +[phone] Jemima Jaramillo MD Unavailable Unavai Kelley Bautista RN Unavailable [phone] Sydnee Saleem MD Unavailable +[phone] Karlene Moya MD Unavailable Wilbert Quintero OD Unavailable +[phone] Rod Gauthier DPM Unavailable Jan Mahmood MD Unavailable +[phone] Brandt Quintana MD Unavailable Jan Mahmood MD Unavailable +[phone] Rio Jaquez MD Unavailable +[phone] Dom Eason MD Unavailable Jayla Plaza RN Unavailable +[phone] Jaimie Vernon RN Unavailable Unavailable Marquise Hanley MD Unavailable +[phone] Vlad Ramey MD Unavailable +[phone] Joesph Crowe MD Unavailable + [phone] Michelle Padilla RN Unavailable Unavaila ble Marquise Hanley MD Unavailable +[phone] Wagner Oliver MD Unavailable +[phone] ZeenatLaura rodriguez NP Unavailable +[phone] Joesph Crowe MD Unavailable +[phone] Joesph Crowe MD Unavailable + [phone] Adonay Haq MD Unavailable [phone] Denilson Srinivasan MD Unavailable + [phone] Jason Alvares MD Unavailable Ruth Riddle DPM, Podiatry /Foot and Ankle Surgery Unavailable Omar Carmona MD Primary Care Provider [phone] Jignesh Mathias MD Unavailable Adonay Haq MD Unavailable [phone] Omar Carmona MD Unavailable +[phone] Jason Alvares MD Unavailable Jignesh Mathias MD Unavailable Ayad Lopez PhD LP Unavailable +[phone] Gavi Nieto PA-C Unavailable [phone] Encounter Details Date Type Department Care Team (Late st Contact Info) Description 12/20/2023 [facility] Gastroenterology Clinic [address] [address] Valerie Nation Social History Tobacco Use Types Packs/Day Years [...] than three times a week 08/27/2021 Attends [employer] Not on file 08/27 Do you belong to any clubs o r organizations such as sikhism groups, unions, fraternal or athletic groups, or [...] Answer Date Recorded PHQ-2 Score 2 08/26/2023 [facility] - Occupational Stress Questionnaire Answer Date [...] Sex Assigned at Female 09/12/2020 12:05 PM CARE TRANSITIONS NURSE Legal Sex Female 3:26 AM CARE TRANSITIONS NURSE Gender Identity Female 09/12/2020 12:05 PM CARE TRANSITIONS NURSE Sexual Orientation Straight 12/19/2021 10 :44 AM [...] Visit [facility] [address] [place] [address] Jason Alvares MD [address] [place] [address] Chaya Castillo OTR [facility] [address] [place] [address] 03/29/2025 10:30 AM CDT Therapy Visit [facility] [address] [place] [phone] [place] [address] MICHAEL [address] [place] [address] 04/02/2025 11:00 AM CDT Therapy Visit [address] [phone] Jason Alvares MD [address] [place] [address] Chaya Castillo [facility]TR [facility] [address] [place] [address] 04/11/2025 12:30 PM CDT Office Visit [facility] [address] 4th [place] [phone] Omar Carmona MD [address] [place] [address] 04/12/2025 2:15 PM CDT [facility] [address] [place] [phone] Jason Alvares MD [address] [place] [address] Chaya Castillo OTR [facility] [address] [place] [address] 04/16/2025 11:00 AM CDT Therapy Visit [facility] [address] [place] [address] Jason Alvares MD [address] [place] [address] Chaya Castillo OTR [facility] [address] [place] [address] 04/23/2025 11:00 AM CDT Therapy Visit [facility] [address] [place] [address] Jason Alvares MD [address] [place] [address] [facility] [address] [place] [address] 04/30/2025 11:00 AM CDT Therapy Visit [address] [phone] Jason Alvares MD [address] [place] [address] Chaya Castillo OTR [facility] [address] [place] [address] 05/15/2025 12:30 PM CDT Office Visit [address] [address] Marquise Hanley MD [address] [place] [address] 06/08/2025 9:15 AM CDT Office Visit [facility] [address] [phone] Jignesh Mathias MD [address] [place] [address] 080715 11/05/2025 1:45 PM CDT Office Visit [facility] [address] 3rd [place] [address] Gavi Nieto PA-C Dermatology [address] [place] [address] [phone] documented as of this encounter Goals Goal [...] Total Score: 9 06/14/20 23 7:18 AM CARE TRANSITIONS NURSE documented as of this encounter Care Teams Machine Sprayer Relationship Specialty Start Date End Date Rio Jaquez MD [address] [place] [address] [address] [place] [address] PCP - General Family Practice 12/02/10 07/13/24 Omar Carmona MD [address] [place] [address] PCP - General Family Medicine 07/14/24 Barry Kilpatrick MD [address] [place] [address] [id number] [place] [address] Neurology 07/19/14 Michelle Henderson I, RN Nurse Coordinator Neurology 07/19/14 Rio Jaquez MD 909 [facility] 4 [place], [place] 495[address] Family Practice 10/15/14 Jemima Jaramillo MD ppap coordinator 11/20/14 Kelley Chin, TANIA [facility] [address] [place] [address] 893095 Nurse Coordinator Cardiology 11/04/15 Sydnee Saleem MD [address] [place] [address] 508 [place], [place] 50260[address] Cardiology 11/04/15 Karlene Moya MD [address] [place] [address] 384955 Ophthalmology 06/24/17 Wilbert Quintero, OD [address] [place] [address] 539465 Optometry 06/24/17 Rod Gauthier DPM [address] [place] [address] 092285 Clinical Assistant Primary Podiatric Medicine 06/21/18 Jan Mahmood MD [address] [place] [address] 2[address] [place], [place] 0[address] Gastroenterology 11/05/20 Brandt Quintana MD [address] [place] [address] Resident 11/05/20 Jan Mahmood MD 516 [facility] 2A [place] [address] Assigned Gastroenterology Provider 12/01/20 Rio Jaquez MD [address] [place] [address] Assigned PCP 11/17/20 09/30/24 Dom Eason MD [address] [place] [address] [address] [place] [address] Internal Medicine 12/02/20 Jayla Plaza, RN Specialty Recoater Hepatology 01/09/21 02/13/24 Jaimie Vernon, TANIA Specialty Recoater Cardiology 10/28/21 Marquise Hanley MD [address] [place] [address] Endocrinology, Diabetes, and Metabolism 03/05/22 Vlad Ramey MD [address] [place] [address] Cardiovascular Disease 05/07/22 Joesph Crowe MD [address] [place] [address] 764175 Surgery 05/07/22 Michelle Padilla, RN Specialty Recoater Cardiology 07/03/22 Marquise Hanley MD [address] [place] [address] 16[address] Assigned Endocrinology Provider 08/15/22 Wagner Oliver MD [address] [place] [address] Critical Care 12/15/22 Laura Epperson NP 717 [facility] [address] [place] [address] Assigned Nephrology Provider 02/20/23 08/30/24 Joesph Crowe MD [address] [place] [address] Surgery 03/17/23 Joesph Crowe MD [address] [place] [address] Assigned Surgical Provider 04/03/23 09/30/24 Adonay Haq MD [address] [place] [address] Internal Medicine 06/14/23OctoberDenilson MD [address] [facility] [address] [place] [address] Assigned Heart and Vascular Provider 05/29/23 11/28/24 Jason Alvares MD [address] [place] [address] [address] [place] [address] Assigned Neuroscience Provider 05/15/23 11/28/24 Ruth Riddle DPVik, Podiatry/Foot and Ankle Surgery [address] R[place]IG[address]Z [address] [place] [address] Assigned Musculoskeletal Provider 10/22/23 Jignesh Mathias MD [address] [place] [address] Gastroenterology 09/25/24 Adonay Haq MD [address] [place] [address] Assigned PCP 10/01/24 12/28/24 Omar Carmona MD [address] [place] [address] 78734 Assigned PCP 12/29/24 Jason Alvares MD [address] [place] [address] 169405 Assigned Neuroscience Provider 12/29/24 Jignesh Mathias MD [address] [place] [address] 5[address]33 Assigned Surgical Provider 12/29/24 Ayad Lopez, PhD LP [address] [place] [address] 334245 Assigned Behavioral Health Provider 02/28/25 Gavi Nieto, PA-C [address] [place] [address] [phone] Physician Viticulture Teacher Dermatology 03/19/25 documented as of this encounter
--- OUTSIDE RECORDS SUMMARY | 2025-03-24 20:29 | XMS_ITS | Encounter Summary ---
Author Organization [facility] Address [address] [place] [address] Care Team Providers Care Second Baker Name Role Phone Rio Jaquez MD Primary Care Provider Barry Kilpatrick MD Unavailable Michelle Henderson RN Unavailable [phone] Rio Jaquez MD Unavailable +[phone] Jemima Jaramillo MD Unavailable Unavai Kelley Bautista RN Unavailable [phone] Sydnee Saleem MD Unavailable [phone] Karlene Moya MD Unavailable +[phone] Wilbert Quintero OD Unavailable +[phone] Rod GauthierM Unavailable +[phone] Nallely Hogue RN Unavailable Unavailable Larisa Vargas RN Unavailable Unavailable Jan Mahmood MD Unavailable +[phone] Brandt Quintana MD Unavailable +[phone] Jan Mahmood MD Unavailable +[phone] Rio Jaquez MD Unavailable +[phone] Dom Eason MD Unavailable +[phone] Jayla Plaza RN Unavailable +[phone] Sydnee [...] Unavailable +[phone] Dom Eason MD Unavailable +[phone] Wagner Oliver MD Unavailable +[phone] Laura Epperson NP Unavailable +[phone] Thom Taveras MD Unavailable +[phone] Joesph Crowe MD Unavailable +[phone] Joesph Crowe MD Unavailable + [phone] Adonay Haq MD Unavailable +[phone] Denilson Srinivasan MD Unavailable + [phone] Jason Alvares MD Unavailable Ruth Riddle DPM, Podiatry /Foot and Ankle Surgery Unavailable Omar Carmona MD Primary Care Provider [phone] Jignesh Mathias MD Unavailable Adonay Haq MD Unavailable [phone] Omar Carmona MD Unavailable +[phone] Jason Alvares MD Unavailable Jignesh Mathias MD Unavailable Ayad Lopez PhD LP Unavailable +[phone] Gavi Nieto PA-C Unavailable +[phone] Encounter Details Date Type Department Care Team (Late st Contact Info) Description 02/25/2022 MyC Medical Advice [facility] [address] [address] Jayla Plaza RN Social History [...] PHQ-2 Answer Date Recorded PHQ-2 Score 1 02/16/2022 [facility] - Occupational Stress Questionnaire Answer Date Recorded [...] place to sleep or slept in a halfway (including now)? No 08/27/2021 Comments No Sex and Gender Information Value Date Recorded Sex Assigned at Female 09/12/2020 12:05 PM CHILLING HOOD OPERATOR Legal Sex Female 3:26 AM CHILLING HOOD OPERATOR Gender Identity Female 09/12/2020 12:05 PM CHILLING HOOD OPERATOR Sexual Orientation Straight 12/19/2021 10 :44 [...] suspected to have Coronavirus/COVID-19? No / Unsure 02/23/2022 7:22 AM CDT documented as of this encounter Plan of Treatment Upcoming Encounters Date Type Department Care Team (Late st Contact Info) Description 03/26/2025 11:00 AM CDT Therapy Visit [address] [phone] Jason Alvares MD 420 [facility] 295 [place], [place] 488[address] Chaya Castillo OTR FV [address] [address] 03/29/2025 10:30 AM CDT Therapy Visit [facility] [address] [place] [address] [place] [address] [place], [place] [address] 04/02/2025 11:00 AM CDT Therapy Visit [facility] [place] [address] [place] [phone] Jason Alvares MD [address] [place] [address] Chaya Castillo, OTR [facility] 150 [place] [address] 04/11/2025 12:30 PM CDT Office Visit [facility] [address] 4th [place] [phone] Omar Carmona MD [address] [place] [address] 04/12/2025 2:15 PM CDT Therapy Visit [facility] [place] [phone] Jason Alvares MD [address] [place] [address] [phone] Chaya Castillo, OTR [facility] 150 [place] [address] 04/16/2025 11:00 AM CDT Therapy Visit [facility] [place] [phone] Jason Alvares MD [address] [place] [address] 497315 Chaya Castillo, OTR [facility] 150 [facility] [place] [address] 04/23/2025 11:00 AM CDT Therapy Visit [facility] [address] [place] [address] Jason Alvares MD [address] [place] [address] Chaya Castillo, OTR [facility] 150 [place] [address] 04/30/2025 11:00 AM CDT Therapy Visit [facility] 150 [place] [address] Jason Alvares MD [address] [place] [address] Chaya Castillo, OTR [address] [address] 05/15/2025 12:30 PM CDT Office Visit [address] [phone] Marquise Hanley MD [address] [place] [address] 512075 06/08/2025 9:15 AM CDT Office Visit [facility] [address] [phone] Jignesh Mathias MD [address] [place] [address] 11/05/2025 1:45 PM CDT Office Visit [facility] Dermatology [facility] [address] 3rd [place] [address] Gavi Nieto PA-C Dermatology [address] [place] [address] [phone] documented as of this encounter Goals Goal [...] Assessment Noted Time PHQ-9 Depression Total Score: 4 03/24/20 25 9:05 AM CDT documented as of this encounter Care Teams Second Baker Relationship Specialty Start Date End Date Rio Jaquez MD [address] [place] [address] PCP - General Family Practice 12/02/10 07/13/24 Omar Carmona MD [address] [place] [address] [phone] PCP - General Family Medicine 07/14/24 Barry Kilpatrick MD [address] [place] [address] [id number] [place], [place] 460[address] Neurology 07/19/14 Michelle Henderson I, TANIA Nurse Coordinator Neurology 07/19/14 Rio Jaquez MD [address] [place] [address] 826475 Family Practice 10/15/14 Jemima Jaramillo MD independent film maker 11/20/14 Kelley Chin, TANIA [address] [address] Nurse Coordinator Cardiology 11/04/15 Sydnee Saleem MD 420 [facility] 508 [place], [place] 9275[address] Cardiology 11/04/15 Karlene Moya MD [address] [place] [address] 772545 Ophthalmology 06/24/17 Wilbert Quintero, OD [address] [place] [address] 907985 Optometry 06/24/17 Rod Gauthier DPM 9 [place], [place] 268[address] Personal Insurance Advisor Primary Podiatric Medicine 06/21/18 Nallely Hogue, RN Registered Nurse 02/20/19 11/23/22 Larisa Vargas, TANIA Specialty Hydrologic Engineer Cardiology 04/18/19 03/06/22 Jan Mahmood MD [address] [place] [address] [address] [place] [address] Gastroenterology 11/05/20 Brandt Quintana MD [address] [place] [address] Resident 11/05/20 Jan Mahmood MD [address] [place] [address] Assigned Gastroenterology Provider 12/01/20 Rio Jaquez MD [address] [place] [address] 4 [place] [address] Assigned PCP 11/17/20 09/30/24 Dom Eason MD 717 [facility] 353 [place] [address] Internal Medicine 12/02/20 Jayla Plaza, RN Specialty Hydrologic Engineer Hepatology 01/09/21 02/13/24 Sydnee Saleem MD [address] [address] Assigned Heart and Vascular Provider 02/02/21 07/24/22 Cristian Barragan MD 2945 [place] [address] Assigned Infectious Disease Provider 02/21/21 03/06/22 Jaimie Vernon, TANIA Specialty Hydrologic Engineer Cardiology 10/28/21 Ruth Riddle, DPM, Podiatry/Foot and Ankle Surgery 06267 [facility] 300 [place] [address] Assigned Musculoskeletal Provider 11/30/21 09/30/23 Jason Alvares MD 420 [facility] 295 [place] [address] Assigned Neuroscience Provider 01/03/22 05/15/22 Marquise Hanley MD 909 [place] [address] Endocrinology, Diabetes, and Metabolism 03/05/22 Vlad Ramey MD [address] [place] [address] Cardiovascular Disease 05/07/22 Joesph Crowe MD [address] [place] [address] Surgery 05/07/22 Luis Arrington MD [address] [place] [address] Assigned Neuroscience Provider 05/16/22 05/14/23 Michelle Padilla, RN Specialty Hydrologic Engineer Cardiology 07/03/22 Vlad Ramey MD [address] [place] [address] Assigned Heart and Vascular Provider 07/25/22 05/28/23 Marquise Hanley MD [address] [place] [address] Assigned Endocrinology Provider 08/15/22 Dom Eason MD 7 [facility] 353 [place] [address] Assigned Nephrology Provider 11/28/22 02/19/23 Wagner Oliver MD [address] [address] Critical Care 12/15/22 Laura Epperson, LULU 717 [facility] [address] [place] [address] Assigned Nephrology Provider 02/20/23 08/30/24 Thom Taveras MD [facility] [address] [place] [address] Assigned Cancer Care Provider 02/06/23 08/20/23 Joesph Crowe MD [address] [place] [address] Surgery 03/17/23 Joesph Crowe MD [address] [place] [address] Assigned Surgical Provider 04/03/23 09/30/24 Adonay Haq MD [address] [place] [address] 794775 Internal Medicine 06/14/23OctoberDenilson MD [address] [facility] [address] [place], [place] 849065 Assigned Heart and Vascular Provider 05/29/23 11/28/24 Jason Alvares MD [address] [place] [address] 295 [place], [place] 568005 Assigned Neuroscience Provider 05/15/23 11/28/24 Ruth Riddle DPM, Podiatry/Foot and Ankle Surgery [address] [place], [place] 898647 Assigned Musculoskeletal Provider 10/22/23 Jignesh Mathias MD [address] [place] [address] Gastroenterology 09/25/24 Adonay Haq MD [address] [place] [address] 037465 Assigned PCP 10/01/24 12/28/24 Omar Carmona MD [address] [place] [address] Assigned PCP 12/29/24 Jason Alvares MD [address] [place] [address] Assigned Neuroscience Provider 12/29/24 Jignesh Mathias MD [address] [place] [address] 745955 Assigned Surgical Provider 12/29/24 Aayd Lopez, PhD LP [address] [place] [address] 839365 Assigned Behavioral Health Provider 02/28/25 Gavi Nieto, PA-C [address] [place] [address] [phone] Physician Lacquer Coater Dermatology 03/19/25 documented as of this encounter
--- OUTSIDE RECORDS SUMMARY | 2025-03-24 20:29 | XMS_ITS | Encounter Summary ---
Author Organization [place] Address [address] [place] [address]46 Care Team Providers Care General Intern Name Role Phone Rio Jaquez MD Primary Care Provider Barry Kilpatrick MD Unavailable Michelle Henderson I RN Unavailable [phone] Rio Jaquez MD Unavailable +[phone] Jemima Jaramillo MD Unavailable Unavai Kelley Bautista RN Unavailable [phone] Sydnee Saleem MD Unavailable +[phone] Karlene Moya MD Unavailable Wilbert Quintero OD Unavailable +[phone] Rod Gauthier DPM Unavailable +[phone] Jan Mahmood MD Unavailable +[phone] Brandt Quintana MD Unavailable [phone] Jan Mahmood MD Unavailable +[phone] Rio Jaquez MD Unavailable +[phone] Dom Eason MD Unavailable Jayla Plaza RN Unavailable +[phone] Jaimie Vernon RN Unavailable Unavailable Marquise Hanley MD Unavailable +[phone] Vlad Ramey MD Unavailable +[phone] Joesph Crowe MD Unavailable + [phone] Michelle Padilla RN Unavailable Unavaila ble Marquise Hanley MD Unavailable +-[phone] Wagner Oliver MD Unavailable +[phone] Laura Epperson NP Unavailable + [phone] Joesph Crowe MD Unavailable +[phone] Joesph Crowe MD Unavailable + [phone] Adonay Haq MD Unavailable [phone] Denilson Srinivasan MD Unavailable + [phone] Jason Alvares MD Unavailable Ruth Riddle DPM, Podiatry /Foot and Ankle Surgery Unavailable Omar Carmona MD Primary Care Provider [phone] Jignesh Mathias MD Unavailable Adonay Haq MD Unavailable [phone] Omar Carmona MD Unavailable +[phone] Jason Alvares MD Unavailable Jignesh Mathias MD Unavailable Ayad Lopez PhD LP Unavailable +[phone] Gavi Nieto PA-C Unavailable [phone] Encounter Details Date Type Department Care Team (Late st Contact Info) Description 10/14/2023 [facility] Hepatology [address] [address] Jan Mahmood MD 6 [facility] 2A [place] [address] Social History Tobacco Use Types Packs/Day Years [...] than three times a week 08/27/2021 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 [address] [place] [address] 03/29/2025 10:30 AM CDT Therapy Visit [facility] [address] [place] [phone] [place] [address] MICHAEL 300 [place], [place] [phone] 04/02/2025 11:00 AM CDT Therapy Visit [address] [phone] Jason Alvares MD [address] [place] [address] Chaya Castillo, OTR [address] [address] 04/11/2025 12:30 PM CDT Office Visit [facility] Clinic [address] 4th [place] [address] Omar Carmona MD [address] [place] [address] 595415 04/12/2025 2:15 PM CDT Therapy Visit [address] [phone] Jason Alvares MD [address] [place] [address] 619875 Chaya Castillo, OTR [facility] [address] [place] [address] 04/16/2025 11:00 AM CDT Therapy Visit [facility] [address] [place] [phone] Jason Alvares MD [address] [place] [address] Chaya Castillo OTR [facility] 150 [facility] [address] 04/23/2025 11:00 AM CDT Therapy [facility] [place] [phone] Jason Alvares MD [address] [place] [address] Chaya Castillo OTR [facility] 150 [place] [address] 04/30/2025 11:00 AM CDT Therapy [facility] 150 [facility] [place] [phone] Jason Alvares MD [address] [place] [address] Chaya Castillo OTR [facility] 150 [facility] [place] [address] 05/15/2025 12:30 PM CDT Office Visit [address] [phone] Marquise Hanley MD [address] [place] [address] 06/08/2025 9:15 AM CDT Office Visit [facility] Hepatology Clinic [address] [address] Jignesh Mathias MD [address] [place] [address] 1976[address] 11/05/2025 1:45 PM CDT Office Visit [facility] Dermatology Clinic [address] 3rd [place] [address] Gavi Nieto PA-C Dermatology [address] [place] [address] documented as of this encounter Goals [...] Total Score: 9 06/14/20 23 7:18 AM COMPOUND FINISHER documented as of this encounter Care Teams General Intern Relationship Specialty Start Date End Date Rio Jaquez MD [address] [place] [address] 4 [place] [address] PCP - General Family Practice 12/02/10 07/13/24 Omar Carmona MD [address] [place] [address] 12554 PCP - General Family Medicine 07/14/24 Barry Kilpatrick MD [address] [place] [address] [id number] [place], [place] 689155 Neurology 07/19/14 Michelle Henderson I, RN Nurse Coordinator Neurology 07/19/14 Rio Jaquez MD [address] [place] [address] [address] 4 [place], [place] 270135 Family Practice 10/15/14 Jemima Jaramillo MD caustic loader 11/20/14 Kelley Chin, TANIA [address] 840385 Nurse Coordinator Cardiology 11/04/15 Sydnee Saleem MD [address] [place] [address] [facility] [address] [place], [place] 445625 Cardiology 11/04/15 Karlene Moya MD [address] [place] [address] 227455 Ophthalmology 06/24/17 Wilbert Quintero, OD [address] [place] [address] 216375 Optometry 06/24/17 Rod Gauthier DPM [address] [place] [address] 985415 Planer Offbearer Primary Podiatric Medicine 06/21/18 Jan Mahmood MD [address] [place] [address] [facility] [address] [place], [place] 865525 Gastroenterology 11/05/20 Brandt Quintana MD 1414 [place] [address] Resident 11/05/20 Jan Mahmood MD 516 [facility] 2A [place] [address] Assigned Gastroenterology Provider 12/01/20 Rio Jaquez MD [address] [place] [address] [address] 4 [place], [place] 543615 Assigned PCP 11/17/20 09/30/24 Dom Eason MD 717 [facility] MICHAEL [address] [place] [address] Internal Medicine 12/02/20 Jayla Plaza, RN Specialty Certified Medical Dosimetrist Hepatology 01/09/21 02/13/24 Jaimie Vernon, RN Specialty Certified Medical Dosimetrist Cardiology 10/28/21 Marquise Hanley MD [address] [place] [address] 20531 Endocrinology, Diabetes, and Metabolism 03/05/22 Vlad Ramey MD [address] [place] [address] 59[address] Cardiovascular Disease 05/07/22 Joesph Crowe MD [address] [place] [address] 18680 Surgery 05/07/22 Michelle Padilla, RN Specialty Certified Medical Dosimetrist Cardiology 07/03/22 Marquise Hanley MD [address] [place] [address] 86769 Assigned Endocrinology Provider 08/15/22 Wagner Oliver MD [address] [place] [address] Critical Care 12/15/22 Laura Epperson NP 717 [facility] [address] [place] [address] Assigned Nephrology Provider 02/20/23 08/30/24 Joesph Crowe MD [address] [place] [address] [phone] Surgery 03/17/23 Joesph Crowe MD [address] [place] [address] 159845 Assigned Surgical Provider 04/03/23 09/30/24 Adonay Haq MD [address] [place] [address] 097355 Internal Medicine 06/14/23OctoberDenilson MD [address] [place] [address] Assigned Heart and Vascular Provider 05/29/23 11/28/24 Jason Alvares MD [address] [place] [address] 295 [place], [place] 116005 Assigned Neuroscience Provider 05/15/23 11/28/24 Ruth Riddle DPM, Podiatry/Foot and Ankle Surgery [address] [place] [address] Assigned Musculoskeletal Provider 10/22/23 Jignesh Mathias MD [address] [place] [address] 065495 Gastroenterology 09/25/24 Adonay Haq MD [address] [place] [address] Assigned PCP 10/01/24 12/28/24 Omar Carmona MD [address] [place] [address] 301425 Assigned PCP 12/29/24 Jason Alvares MD [address] [place] [address] 051705 Assigned Neuroscience Provider 12/29/24 Jignesh Mathias MD [address] [place] [address] 80221 Assigned Surgical Provider 12/29/24 Ayad Lopez, PhD LP [address] [place] [address] 031015 Assigned Behavioral Health Provider 02/28/25 Gavi Nieto PANavinC [address] [place] [address] 59[address] Physician Store Stock Associate Dermatology 03/19/25 documented as of this encounter
--- OUTSIDE RECORDS SUMMARY | 2025-03-24 20:29 | XMS_ITS | Encounter Summary ---
Author Organization [facility] Address [address] [place] [address] Care Team Providers Care Marketing Automation Analyst Name Role Phone Rio Jaquez MD Primary Care Provider Barry Kilpatrick MD Unavailable Michelle Henderson I RN Unavailable [phone] Rio Jaquez MD Unavailable [phone] Jemima Jaramillo MD Unavailable Unavai Kelley Bautista RN Unavailable [phone] Sydnee Saleem MD Unavailable [phone] Karlene Moya MD Unavailable Wilbert Quintero OD Unavailable +[phone] Rod Gauthier DPM Unavailable Jan Mahmood MD Unavailable [phone] Brandt Quintana MD Unavailable Jan Mahmood MD Unavailable +[phone] Rio Jaquez MD Unavailable [phone] Dom Eason MD Unavailable Jayla Plaza RN Unavailable +[phone] Jaimie Vernon RN Unavailable Unavailable Marquise Hanley MD Unavailable +[phone] Vlad Ramey MD Unavailable +[phone] Joesph Crowe MD Unavailable + [phone] Michelle Padilla RN Unavailable Unavaila ble Marquise Hanley MD Unavailable +[phone] Wagner Oliver MD Unavailable +[phone] Laura Epperson NP Unavailable + [phone] Joesph Crowe MD Unavailable + [phone] Joesph Crowe MD Unavailable + [phone] Adonay Haq MD Unavailable [phone] Denilson Srinivasan MD Unavailable + [phone] Jason Alvares MD Unavailable Ruth Riddle DPM, Podiatry /Foot and Ankle Surgery Unavailable Omar Carmona MD Primary Care Provider [phone] Jignesh Mathias MD Unavailable Adonay Haq MD Unavailable [phone] Omar Carmona MD Unavailable [phone] Jason Alvares MD Unavailable Jignesh Mathias MD Unavailable Ayad Lopez PhD LP Unavailable [phone] Gavi Nieto PA-C Unavailable [phone] Encounter Details Date Type Department Care Team (Late st Contact Info) Description 10/04/2023 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 Gender Identity Female 09/12/2020 12:05 PM 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 Sexual Orientation Straight 12/19/2021 10 :44 AM [...] 03/26/2025 11:00 AM CDT Therapy Visit [address] [phone] Jason Alvares MD [address] [address] Chaya Castillo [facility]TR [facility] 150 [place] [address] 03/29/2025 10:30 AM CDT Therapy Visit [facility] [address] [place] [place] [phone] [place] [address] MICHAEL [address] [place] [address] 04/02/2025 11:00 AM CDT Therapy [facility] [address] [place] [phone] Jason Alvares MD [address] [place] [address] Chaya Castillo OTR [facility] 150 [place] [address] 04/11/2025 12:30 PM CDT Office Visit [facility] [address] 4th [place] [phone] Omar Carmona MD [address] [place] [address] 052345 04/12/2025 2:15 PM CDT Therapy Visit [facility] 150 [place] [phone] Jason Alvares MD [address] [place] [address] Chaya Castillo OTR [facility] 150 [place] [address] 04/16/2025 11:00 AM CDT Therapy Visit [facility] 150 [place] [address] Jason Alvares MD [address] [address] Chaya Castillo OTR [facility] 150 [place] [address] 04/23/2025 11:00 AM CDT Therapy Visit [address] [address] Jason Alvares MD [address] [place] [address] Chaya Castillo OTMari [facility] PHILL[facility]HU [facility] 150 [place] [address] 04/30/2025 11:00 AM CDT Therapy Visit [address] [address] Jason Alvares MD [address] [place] [address] Chaya Castillo OTR [facility] 150 [place] [address] 05/15/2025 12:30 PM CDT Office Visit [address] [address] Marquise Hanley MD [address] [place] [address]84 06/08/2025 9:15 AM CDT Office Visit [facility] Hepatology Clinic [address] [phone] Jignesh Mathias MD [address] [place] [address] 11/05/2025 1:45 PM CDT Office Visit [facility] Dermatology Clinic [address] 3rd [place] [address] Gavi Nieto PA-C Dermatology [address] [place] [address] [phone] documented as of this encounter Goals Goal [...] Total Score: 9 06/14/20 23 7:18 AM 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 documented as of this encounter Care Teams Marketing Automation Analyst Relationship Specialty Start Date End Date Rio Jaquez MD [address] [place] [address] [address] 4 [place] [address] PCP - General Family Practice 12/02/10 07/13/24 Omar Carmona MD [address] [place] [address] 98[address] PCP - General Family Medicine 07/14/24 Barry Kilpatrick MD [address] [place] [address] [id number] [place], [place] 748915 Neurology 07/19/14 Michelle Henderson I, RN Nurse Coordinator Neurology 07/19/14 Rio Jaquez MD [address] [place] [address] FL 4 [place], [place] 375395 Family Practice 10/15/14 Jemima Jaramillo MD assisted living care manager 11/20/14 Kelley Chin, TANIA [address] 800775 Nurse Coordinator Cardiology 11/04/15 Sydnee Saleem MD [address] [place] [address] 508 [place], [place] 676205 Cardiology 11/04/15 Karlene Moya MD [address] [place] [address] 405705 Ophthalmology 06/24/17 Wilbert Quintero, OD [address] [place] [address] 869085 Optometry 06/24/17 Rod Gauthier DPM [address] [place] [address] 307865 Professor Of Finance Primary Podiatric Medicine 06/21/18 Jan Mahmood MD [address] [place], [place] [address]B 2A [place], [place] 281015 Gastroenterology 11/05/20 Brandt Quintana MD 1414 [place] [address] Resident 11/05/20 Jan Mahmood MD 516 [facility] 2A [place] [address] Assigned Gastroenterology Provider 12/01/20 Rio Jaquez MD 909 [facility] 4 [place] [address] Assigned PCP 11/17/20 09/30/24 Dom Eason MD 717 [facility] 353 [place] [address] Internal Medicine 12/02/20 Jayla Plaza, RN Specialty Physical Education Instructor Hepatology 01/09/21 02/13/24 Jaimie Vernon, RN Specialty Physical Education Instructor Cardiology 10/28/21 Marquise Hanley MD [address] [place] [address]5845 Endocrinology, Diabetes, and Metabolism 03/05/22 Vlad Ramey MD [address] [place] [address] 17289 Cardiovascular Disease 05/07/22 Joesph Crowe MD [address] [place] [address] Surgery 05/07/22 Michelle Padilla, RN Specialty Physical Education Instructor Cardiology 07/03/22 Marquise Hanley MD 909 [place] [address] Assigned Endocrinology Provider 08/15/22 Wagner Oliver MD [address] [place] [address] Critical Care 12/15/22 Laura Epperson, LULU 7 [facility] [address] [place] [address] Assigned Nephrology Provider 02/20/23 08/30/24 Joesph Crowe MD [address] [place] [address] 79258 Surgery 03/17/23 Joesph Crowe MD [address] [place] [address] 27450 Assigned Surgical Provider 04/03/23 09/30/24 Adonay Haq MD [address] [place] [address] 13774 Internal Medicine 06/14/23OctoberDenilson MD [address] [facility] [address] [place] [address] Assigned Heart and Vascular Provider 05/29/23 11/28/24 Jason Alvarse MD [address] [place] [address] 295 [place] [address] Assigned Neuroscience Provider 05/15/23 11/28/24 Janessa, Ruth J, DPM, Podiatry/Foot and Ankle Surgery [address] RODRIGUEZ [address] [place] [address] Assigned Musculoskeletal Provider 10/22/23 Jignesh Mathias MD [address] [place] [address] 9[address] Gastroenterology 09/25/24 Adonay Haq MD [address] [place] [address] 069485 Assigned PCP 10/01/24 12/28/24 Omar Carmona MD [address] [place] [address] 917185 Assigned PCP 12/29/24 Jason Alvares MD [address] [place] [address] 340785 Assigned Neuroscience Provider 12/29/24 Jignesh Mathias MD [address] [place] [address] 71804 Assigned Surgical Provider 12/29/24 Ayad Lopez, PhD LP [address] [place] [address] [phone] Assigned Behavioral Health Provider 02/28/25 Gavi Nieto, PA-C [address] [place] [address] 362205 Physician Telesales Representative Dermatology 03/19/25 documented as of this encounter
--- OUTSIDE RECORDS SUMMARY | 2025-03-24 20:29 | XMS_ITS | Encounter Summary ---
Author Organization [place] Address [address] [place] [address] Care Team Providers Care Circuit Court Magistrate Name Role Phone Rio Jaquez MD Primary Care Provider Barry Kilpatrick MD Unavailable Michelle Henderson I RN Unavailable [phone] Rio Jaquez MD Unavailable +[phone] Jemima Jaramillo MD Unavailable Unavai Kelley Bautista RN Unavailable +[phone] Sydnee Saleem MD Unavailable +[phone] Karlene Moya MD Unavailable Wilbert Quintero OD Unavailable +[phone] Rod Gauthier DPM Unavailable Jan Mahmood MD Unavailable +[phone] Brandt Quintana MD Unavailable Jan Mahmood MD Unavailable +[phone] Rio Jaquez MD Unavailable +[phone] Dom Eason MD Unavailable Jayla Plaza RN Unavailable +-[phone] Jaimie Vernon RN Unavailable Unavailable Marquise Hanley MD Unavailable +[phone] Vlad Ramey MD Unavailable +-[phone] Joesph Crowe MD Unavailable + [phone] Michelle Padilla RN Unavailable Unavaila ble Marquise Hanley MD Unavailable +-[phone] Wagner Oliver MD Unavailable +[phone] ZeenatLaura rodriguez NP Unavailable + [phone] Joesph Crowe MD Unavailable + [phone] Joesph Crowe MD Unavailable + [phone] Adonay Haq MD Unavailable [phone] Denilson Srinivasan MD Unavailable + [phone] Jason Alvares MD Unavailable Ruth Riddle DPM, Podiatry /Foot and Ankle Surgery Unavailable Omar Carmona MD Primary Care Provider [phone] Jignesh Mathias MD Unavailable Adonay Haq MD Unavailable [phone] Omar Carmona MD Unavailable +[phone] Jason Alvares MD Unavailable Jignesh Mathias MD Unavailable Ayad Lopez PhD LP Unavailable +[phone] Gavi Nieto PA-C Unavailable [phone] Encounter Details Date Type Department Care Team (Late st Contact Info) Description 12/07/2023 [facility] [place] [facility] Hepatology [address] [address] Jayla Plaza, RN Social History [...] than three times a week 08/27/2021 Attends [employer]oro[employer] Services Not on file 08/27 Do you belong to any clubs o r organizations such as zoroastrianism groups, unions, fraternal or athletic groups, or [...] Answer Date Recorded PHQ-2 Score 2 08/26/2023 [facility] - Occupational Stress Questionnaire [...] in an abandoned building, in an overnight fpc, or couch-surfing.) Yes 07/12/2023 Are you worried [...] Assigned at Female 09/12/2020 12:05 PM 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 Legal Sex Female 3:26 AM 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 Gender Identity Female 09/12/2020 12:05 PM 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 Sexual Orientation Straight 12/19/2021 10 :44 AM [...] 03/26/2025 11:00 AM CDT Therapy Visit [address] [phone] Jason Alvares MD [address] [address] Chaya Castillo OTR [facility] [address] [place] [address] 03/29/2025 10:30 AM CDT Therapy Visit [facility] [address] [place] [phone] [place] [address]HAEL [address] [place] [address] 04/02/2025 11:00 AM CDT [facility] [address] [place] [phone] Jason Alvares MD [address] [place] [address] Chaya Castillo OTR [facility] 150 [place] [address] 04/11/2025 12:30 PM CDT Office Visit [facility] [address] 4th [place] [phone] Omar Carmona MD [address] [place] [address] 241065 04/12/2025 2:15 PM CDT Therapy Visit [facility] 150 [place] [phone] Jason Alvares MD [address] [place] [address] Chaya Castillo OTR [facility] [address] [place] [address] 04/16/2025 11:00 AM CDT Therapy Visit [facility] 150 [place] [address] Jason Alvares MD [address] [address] Chaya Castillo OTR [facility] 150 [place] [address] 04/23/2025 11:00 AM CDT Therapy Visit [address] [address] Jason Alvares MD [address] [place] [address] Chaya Castillo OTM[facility] 150 [place] [address] 04/30/2025 11:00 AM CDT Therapy Visit [address] [address] Jason Alvares MD [address] [place] [address] [facility] [address] [place] [address] 05/15/2025 12:30 PM CDT Office Visit [address] [address] Marquise Hanley MD [address] [place] [address] 06/08/2025 9:15 AM CDT Office Visit [facility] [address] [phone] Jignesh Mathias MD [address] [place] [address] 11/05/2025 1:45 PM CDT Office Visit [facility] [address] 3rd [place] [address] Gavi Nieto PA-C Dermatology [address] [place] [address] [phone] documented as of this encounter Goals Goal [...] Total Score: 9 06/14/20 23 7:18 AM 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 documented as of this encounter Care Teams Circuit Court Magistrate Relationship Specialty Start Date End Date Rio Jaquez MD [address] [place] [address] [address] 4 [place] [address] PCP - General Family Practice 12/02/10 07/13/24 Omar Carmona MD [address] [place] [address] PCP - General Family Medicine 07/14/24 Barry Kilpatrick MD [address] [place] [address] [id number] [place], [place] 718725 Neurology 07/19/14 Michelle Henderson I, RN Nurse Coordinator Neurology 07/19/14 Rio Jaquez MD [address] [place] [address] [address] [place], [place] [phone] Family Practice 10/15/14 Jemima Jaramillo MD janitor custodian 11/20/14 Kelley Chin, TANIA [address] 505255 Nurse Coordinator Cardiology 11/04/15 Sydnee Saleem MD [address] [place] [address] 508 [place], [place] 192035 Cardiology 11/04/15 Karlene Moya MD [address] [place] [address] 465985 Ophthalmology 06/24/17 Wilbert Quintero, OD [address] [place] [address] 266375 Optometry 06/24/17 Rod Gauthier DPM [address] [place] [address] 730455 [facility] 06/21/18 Jan Mahmood MD [address] [place], [place] [address]B 2A [place], [place] 0[address] Gastroenterology 11/05/20 Brandt Quintana MD 1414 [place] [address] Resident 11/05/20 Jan Mahmood MD 516 [facility] 2A [place] [address] Assigned Gastroenterology Provider 12/01/20 Rio Jaquez MD 909 [facility] 4 [place] [address] Assigned PCP 11/17/20 09/30/24 Dom Eason MD 717 [facility] [address] [place] [address] Internal Medicine 12/02/20 Jayla Plaza, RN Specialty Switch Inspector Hepatology 01/09/21 02/13/24 Jaimie Vernon, RN Specialty Switch Inspector Cardiology 10/28/21 Marquise Hanley MD [address] [place] [address] Endocrinology, Diabetes, and Metabolism 03/05/22 Vlad Ramey MD [address] [place] [address] Cardiovascular Disease 05/07/22 Joesph Crowe MD [address] [place] [address] 1987[address] Surgery 05/07/22 Michelle Padilla, RN Specialty Switch Inspector Cardiology 07/03/22 Marquise Hanley MD 909 [place] [address] Assigned Endocrinology Provider 08/15/22 Wagner Oliver MD [address] [place] [address] Critical Care 12/15/22 Laura Epperson, LULU 7 [facility] [address] [place] [address] Assigned Nephrology Provider 02/20/23 08/30/24 Joesph Crowe MD [address] [place] [address] Surgery 03/17/23 Joesph Crowe MD [address] [place] [address] Assigned Surgical Provider 04/03/23 09/30/24 Adonay Haq MD [address] [place] [address] Internal Medicine 06/14/23OctoberDenilson MD [address] [facility] [address] [place] [address] Assigned Heart and Vascular Provider 05/29/23 11/28/24 Jason Alvares MD [address] [place] [address] 295 [place] [address] Assigned Neuroscience Provider 05/15/23 11/28/24 Janessa, Ruth J, DPM, Podiatry/Foot and Ankle Surgery [address] RODRIGUEZ [address] [place] [address] Assigned Musculoskeletal Provider 10/22/23 Jignesh Mathias MD [address] [place] [address] Gastroenterology 09/25/24 Adonay Haq MD [address] [place] [address] 814075 Assigned PCP 10/01/24 12/28/24 Omar Carmona MD [address] [place] [address] 431515 Assigned PCP 12/29/24 Jason Alvares MD [address] [place] [address] 855535 Assigned Neuroscience Provider 12/29/24 Jignesh Mathias MD [address] [place] [address] Assigned Surgical Provider 12/29/24 Ayad Lopez, PhD LP [address] [place] [address] 345715 Assigned Behavioral Health Provider 02/28/25 Gavi Nieto, PA-C [address] [place] [address] 269915 Physician Manager Of Corporate Dermatology 03/19/25 documented as of this encounter
--- OUTSIDE RECORDS SUMMARY | 2025-03-24 20:29 | XMS_ITS | Encounter Summary ---
Author Organization [place] Address [address] [place] [address] Care Team Providers Care Tractor Sweeper Driver Name Role Phone Rio Jaquez MD Primary Care Provider Barry Kilpatrick MD Unavailable Michelle Henderson I RN Unavailable Rio Jaquez MD Unavailable [phone] Jemima Jaramillo MD Unavailable Unavai Kelley Bautista RN Unavailable [phone] Sydnee Saleem MD Unavailable [phone] Karlene Moya MD Unavailable Wilbert Quintero OD Unavailable +[phone] Rod Gauthier DPM Unavailable Jan Mahmood MD Unavailable [phone] Brandt Quintana MD Unavailable Jan Mahmood MD Unavailable +[phone] Rio Jaquez MD Unavailable [phone] Dom Eason MD Unavailable Jayla Plaza RN Unavailable +[phone] Jaimie Vernon RN Unavailable Unavailable Marquise Hanley MD Unavailable +[phone] Vlad Ramey MD Unavailable +[phone] Joesph Crowe MD Unavailable + [phone] Michelle Padilla RN Unavailable Unavaila ble Marquise Hnaley MD Unavailable +[phone] Wagner Oliver MD Unavailable +[phone] Laura Epperson NP Unavailable + [phone] Joesph Crowe MD Unavailable +[phone] Joesph Crowe MD Unavailable + [phone] Adonay Haq MD Unavailable [phone] Denilson Srinivasan MD Unavailable + [phone] Jason Alvares MD Unavailable Rtuh Riddle DPM, Podiatry /Foot and Ankle Surgery Unavailable Omar Carmona MD Primary Care Provider [phone] Jignesh Mathias MD Unavailable Adonay Haq MD Unavailable [phone] Omar Carmona MD Unavailable +[phone] Jason Alvares MD Unavailable Jignesh Mathias MD Unavailable Ayad Lopez PhD LP Unavailable [phone] Gavi Nieto PA-C Unavailable [phone] Encounter Details Date Type Department Care Team (Late st Contact Info) Description 12/15/2023 [facility] Hepatology [address] [address] Jan Mahmood MD 6 [facility] 2A [place] [address] Social History Tobacco Use Types Packs/Day Years [...] Answer Date Recorded PHQ-2 Score 2 08/26/2023 [facility] - [...] Assigned at Female 09/12/2020 12:05 PM DIRECTOR RADIO NEWS Legal Sex Female 3:26 AM DIRECTOR RADIO NEWS Gender Identity Female 09/12/2020 12:05 PM DIRECTOR RADIO NEWS Sexual Orientation Straight 12/19/2021 10 :44 AM [...] 03/26/2025 11:00 AM CDT Therapy Visit [address] [phone] Jason Alvares MD [address] [place] [address] 755525 Chaya Castillo, OTR [facility] 150 [place] [address] 03/29/2025 10:30 AM CDT Therapy Visit [facility] [address] [place] [phone] [place] [address] [place], [place] [phone] 04/02/2025 11:00 AM CDT Therapy Visit [address] [phone] Jason Alvares MD [address] [place] [address] Chaya Castillo, OTR [address] [address] 04/11/2025 12:30 PM CDT Office Visit [facility] [address] 4th [place] [address] Omar Carmona MD [address] [place] [address] 520755 04/12/2025 2:15 PM CDT Therapy Visit [address] [phone] Jason Alvares MD [address] [place] [address] 515945 Chaya Castillo, OTR [facility] [address] [place] [address] 04/16/2025 11:00 AM CDT Therapy Visit [facility] [place] [address] [place] [phone] Jason Alvares MD [address] [place] [address] Chaya Castillo OTR [facility] 150 [facility] [place] [address] 04/23/2025 11:00 AM CDT Therapy Visit [facility] [place] [phone] Jason Alvares MD [address] [place] [address] Chaya Castillo OTR [facility] 150 [facility] [place] [address] 04/30/2025 11:00 AM CDT Therapy Visit [facility] [address] [facility] [place] [phone] Jason Alvares MD [address] [place] [address] Chaya Castillo OTR [facility] 150 [facility] [place] [address] 05/15/2025 12:30 PM CDT Office Visit [address] [phone] Marquise Hanley MD [address] [place] [address] 06/08/2025 9:15 AM CDT Office Visit [facility] [address] [address] Jignesh Mathias MD [address] [place] [address] 11/05/2025 1:45 PM CDT Office Visit [facility] [address] 3rd [place] [address] Gavi Nieto PA-C Dermatology [address] [place] [address] documented as of this encounter Goals [...] Total Score: 9 06/14/20 23 7:18 AM DIRECTOR RADIO NEWS documented as of this encounter Care Teams Tractor Sweeper Driver Relationship Specialty Start Date End Date Rio Jaquez MD [address] [place] [address] 4 [place] [address] PCP - General Family Practice 12/02/10 07/13/24 Omar Carmona MD [address] [place] [address] PCP - General Family Medicine 07/14/24 Barry Kilpatrick MD [address] [place] [address] [id number] [place], [place] 070215 Neurology 07/19/14 Michelle Henderson I, RN Nurse Coordinator Neurology 07/19/14 Rio Jaquez MD [address] [place] [address] FL 4 [place], [place] 313255 Family Practice 10/15/14 Jemima Jaramillo MD shactor 11/20/14 Kelley Chin, TANIA [address] 625455 Nurse Coordinator Cardiology 11/04/15 Sydnee Saleem MD [address] [place] [address] [facility] [address] [place], [place] 030505 Cardiology 11/04/15 Karlene Moya MD [address] [place] [address] 495365 Ophthalmology 06/24/17 Wilbert Quintero, OD [address] [place] [address] 751645 Optometry 06/24/17 Rod Gauthier DPM [address] [place] [address] 260785 Chief Controller Primary Podiatric Medicine 06/21/18 Jan Mahmood MD [address] [place] [address] [address] [place], [place] 871645 Gastroenterology 11/05/20 Brandt Quintana MD 1414 [place] [address] Resident 11/05/20 Jan Mahmood MD 516 [facility] 2A [place] [address] Assigned Gastroenterology Provider 12/01/20 Rio Jaquez MD [address] [place] [address] [address] 4 [place], [place] 110015 Assigned PCP 11/17/20 09/30/24 Dom Eason MD 717 [facility] MICHAEL [address] [place] [address] Internal Medicine 12/02/20 Jayla Plaza, RN Specialty Farm Service Adviser Hepatology 01/09/21 02/13/24 Jaimie Vernon, RN Specialty Farm Service Adviser Cardiology 10/28/21 Marquise Hanley MD [address] [place] [address] Endocrinology, Diabetes, and Metabolism 03/05/22 Vlad Ramey MD [address] [place] [address] Cardiovascular Disease 05/07/22 Joesph Crowe MD [address] [place] [address] Surgery 05/07/22 Michelle Padilla, RN Specialty Farm Service Adviser Cardiology 07/03/22 Marquise Hanley MD [address] [place] [address] 18[address] Assigned Endocrinology Provider 08/15/22 Wagner Oliver MD [address] [place] [address] Critical Care 12/15/22 Laura Epperson NP 717 [facility] [address] [place] [address] Assigned Nephrology Provider 02/20/23 08/30/24 Joesph Crowe MD [address] [place] [address] 969415 Surgery 03/17/23 Joesph Crowe MD [address] [place] [address] 142895 Assigned Surgical Provider 04/03/23 09/30/24 Adonay Haq MD [address] [place] [address] 012045 Internal Medicine 06/14/23OctoberDenilson MD [address] [place] [address] Assigned Heart and Vascular Provider 05/29/23 11/28/24 Jason Alvares MD [address] [place] [address] 295 [place], [place] 907115 Assigned Neuroscience Provider 05/15/23 11/28/24 Ruth Riddle DPM, Podiatry/Foot and Ankle Surgery [address] [place] [address] Assigned Musculoskeletal Provider 10/22/23 Jignesh Mathias MD [address] [place] [address] 085845 Gastroenterology 09/25/24 Adonay Haq MD [address] [place] [address] Assigned PCP 10/01/24 12/28/24 Omar Carmona MD [address] [place] [address] 678285 Assigned PCP 12/29/24 Jason Alvares MD [address] [place] [address] 461555 Assigned Neuroscience Provider 12/29/24 Jignesh Mathias MD [address] [place] [address]26 Assigned Surgical Provider 12/29/24 Ayad Lopez, PhD LP [address] [place] [address] 791505 Assigned Behavioral Health Provider 02/28/25 Gavi Nieto PANavinC [address] [place] [address] Physician Soa Engineer Dermatology 03/19/25 documented as of this encounter
--- OUTSIDE RECORDS SUMMARY | 2025-03-24 20:29 | XMS_ITS | Encounter Summary ---
Author Organization [place] Address [address] [place] [address] Care Team Providers Care Production Maintenance Mechanic Name Role Phone Rio Jaquez MD Primary Care Provider Barry Kilpatrick MD Unavailable Michelle Henderson I RN Unavailable [phone] Rio Jaquez MD Unavailable +[phone] Jemima Jaramillo MD Unavailable Unavai Kelley Bautista RN Unavailable +[phone] Sydnee Saleem MD Unavailable +[phone] Karlene Moya MD Unavailable Wilbert Quintero OD Unavailable +[phone] Rod Gauthier DPM Unavailable Jan Mahmood MD Unavailable +[phone] Brandt Quintana MD Unavailable Jan Mahmood MD Unavailable +[phone] Rio Jaquez MD Unavailable +[phone] Dom Eason MD Unavailable Jayla Plaza RN Unavailable +[phone] Jaimie Vernon RN Unavailable Unavailable Marquise Hanley MD Unavailable +[phone] Vlad Ramey MD Unavailable +[phone] Joesph Crowe MD Unavailable + [phone] Michelle Padilla RN Unavailable Unavaila ble Marquise Hanley MD Unavailable +[phone] Wagner Oliver MD Unavailable +[phone] Laura Epperson NP Unavailable +-[phone] Joesph Crowe MD Unavailable +[phone] Joesph Crowe MD Unavailable + [phone] Adonay Haq MD Unavailable [phone] Denilson Srinivasan MD Unavailable + [phone] Jason Alvares MD Unavailable Ruth Riddle DPM, Podiatry /Foot and Ankle Surgery Unavailable Omar Carmona MD Primary Care Provider +[phone] Jignesh Mathias MD Unavailable Adonay Haq MD Unavailable [phone] Omar Carmona MD Unavailable +[phone] Jason Alvares MD Unavailable Jignesh Mathias MD Unavailable Ayad Lopez PhD LP Unavailable +[phone] Gavi Nieto PA-C Unavailable +[phone] Encounter Details Date Type Department Care Team (Late st Contact Info) Description 10/12/2023 MyC Medical Advice [facility] [address] [facility], [address] [place] [address] Jason Alvares MD 420 [facility] 295 [place] [address] Social History Tobacco Use Types Packs/Day Years [...] r organizations such as alevism groups, unions, fraternal or athletic groups, or [...] Answer Date Recorded PHQ-2 Score 2 08/26/2023 [facility]at ional [facility] [...] Getting School Help Needed Not on file 09/30 /2023 Food Insecurity Answer Date Recorded Within the [...] Sex Assigned at Female 09/12/2020 12:05 PM EXTRA HAND Legal Sex Female 3:26 AM EXTRA HAND Gender Identity Female 09/12/2020 12:05 PM EXTRA HAND Sexual Orientation Straight 12/19/2021 10 :44 [...] Description 03/26/2025 11:00 AM CDT Therapy Visit [address] [phone] Jason Alvares MD [address] [place] [address] 042245 Chaya Castillo OTR [address] [address] 03/29/2025 10:30 AM CDT Therapy Visit [facility] [address] [place] [phone] [place] [address] [place], [place] [id number] 04/02/2025 11:00 AM CDT Therapy Visit [address] [phone] Jason Alvares MD [address] [place] [address] Chaya Castillo OTR [address] [address] 04/11/2025 12:30 PM CDT Office Visit [facility] [address] 4th [place] [address] Omar Carmona MD [address] [place] [address] 407745 04/12/2025 2:15 PM CDT Therapy Visit [address] [phone] Jason Alvares MD [address] [place] [address] [id number] Castillo, Chaya A, OTR [facility] [address] [place] [address] 04/16/2025 11:00 AM CDT Therapy Visit [facility] [address] [place] [phone] Jason Alvares MD [address] [place] [address] Chaya Castillo OTR [facility] [address] 150 [facility] [place] [address] 04/23/2025 11:00 AM CDT Therapy Visit [facility] 150 [facility] [place] [phone] Jason Alvares MD [address] [place] [address] Chaya Castillo OTR [facility] [place] 150 [place] [address] 04/30/2025 11:00 AM CDT Therapy Visit [facility] 150 [facility] [place] [phone] Jason Alvares MD [address] [place] [address] Chaya Castillo OTR [facility] [place] 150 [facility] [place] [address] 05/15/2025 12:30 PM CDT Office Visit [address] [phone] Marquise Hanley MD [address] [place] [address] 06/08/2025 9:15 AM CDT Office Visit [facility] [address] [phone] Jignesh Mathias MD [address] [place] [address] 11/05/2025 1:45 PM CDT Office Visit [facility] [address] 3rd [place] [address] Gavi Nieto PA-C Dermatology [address] [place] [address] documented as of this encounter Goals [...] Total Score: 9 06/14/20 23 7:18 AM EXTRA HAND documented as of this encounter Care Teams Production Maintenance Mechanic Relationship Specialty Start Date End Date Rio Jaquez MD [address] [place] [address] 4 [place] [address] PCP - General Family Practice 12/02/10 07/13/24 Omar Carmona MD [address] [place] [address] 8[address] PCP - General Family Medicine 07/14/24 Barry Kilpatrick MD [address] [place] [address] [id number] [place], [place] 374015 Neurology 07/19/14 Michelle Henderson I, RN Nurse Coordinator Neurology 07/19/14 Rio Jaquez MD [address] [place] [address] [address] 4 [place], [place] 0[address]85 Family Practice 10/15/14 Jemima Jaramillo MD scientific informatics project leader 11/20/14 Kelley Chin, TANIA [address] 010885 Nurse Coordinator Cardiology 11/04/15 Sydnee Saleem MD [address] [place] [address] [facility] [address] [place], [place] 548615 Cardiology 11/04/15 Karlene Moya MD [address] [place] [address] 836755 Ophthalmology 06/24/17 Wilbert Quintero, OD [address] [place] [address] 702115 Optometry 06/24/17 Rod Gauthier DPM [address] [place] [address] [phone] Certified Maintenance Welder Primary Podiatric Medicine 06/21/18 Jan Mahmood MD [address] [place] [address] [address] [place], [place] 536125 Gastroenterology 11/05/20 Brandt Quintana MD 1414 [place] [address] Resident 11/05/20 Jan Mahmood MD 516 [facility] 2A [place] [address] Assigned Gastroenterology Provider 12/01/20 Rio Jaquez MD [address] [place] [address] FL 4 [place], [place] 132155 Assigned PCP 11/17/20 09/30/24 Dom Eason MD 717 [facility] [address] [place], [place] 052064 Internal Medicine 12/02/20 Jayla Plaza, RN Specialty Foster Care Social Worker Hepatology 01/09/21 02/13/24 Jaimie Vernon, RN Specialty Foster Care Social Worker Cardiology 10/28/21 Marquise Hanley MD [address] [place] [address] Endocrinology, Diabetes, and Metabolism 03/05/22 Vlad Ramey MD [address] [place] [address] 19433 Cardiovascular Disease 05/07/22 Joesph Crowe MD [address] [place] [address] 40836 Surgery 05/07/22 Michelle Padilla, RN Specialty Foster Care Social Worker Cardiology 07/03/22 Marquise Hanley MD [address] [place] [address] Assigned Endocrinology Provider 08/15/22 Wagner Oliver MD [address] [place] [address] Critical Care 12/15/22 Laura Epperson NP 717 [facility] 1932 [place] [address] Assigned Nephrology Provider 02/20/23 08/30/24 Joesph Crowe MD [address] [place] [address] 42[address] Surgery 03/17/23 Joesph Crowe MD [address] [place] [address] 40189 Assigned Surgical Provider 04/03/23 09/30/24 Adonay Haq MD [address] [place] [address] Internal Medicine 06/14/23OctoberDenilson MD [address] [place] [address] Assigned Heart and Vascular Provider 05/29/23 11/28/24 Jason Alvares MD 420 [facility] 295 [place], [place] 274105 Assigned Neuroscience Provider 05/15/23 11/28/24 Ruth Riddle DPM, Podiatry/Foot and Ankle Surgery [address] [place] [address] Assigned Musculoskeletal Provider 10/22/23 Jignesh Mathias MD [address] [place] [address] 094945 Gastroenterology 09/25/24 Adonay Haq MD [address] [place] [address] Assigned PCP 10/01/24 12/28/24 Omar Carmona MD [address] [place] [address] 731685 Assigned PCP 12/29/24 Jason Alvares MD [address] [place] [address] 166215 Assigned Neuroscience Provider 12/29/24 Jignesh Mathias MD [address] [place] [address] 99024 Assigned Surgical Provider 12/29/24 Ayad Lopez, PhD LP [address] [place] [address] 543975 Assigned Behavioral Health Provider 02/28/25 Gavi Nieto PA-C [address] [place] [address] Physician Geophysical Prospector Dermatology 03/19/25 documented as of this encounter
--- OUTSIDE RECORDS SUMMARY | 2025-03-24 20:29 | XMS_ITS | Encounter Summary ---
Author Organization [place] Address [address] [place] [address] Care Team Providers Care Buildings And Grounds Supervisor Name Role Phone Rio Jaquez MD Primary Care Provider Barry Kilpatrick MD Unavailable Michelle Henderson RN Unavailable [phone] Rio Jaquez MD Unavailable +[phone] Jemima Jaramillo MD Unavailable Unavai Kelley Bautista RN Unavailable +[phone] Sydnee Saleem MD Unavailable +[phone] Karlene Moya MD Unavailable +[phone] Wilbert Quintero OD Unavailable +[phone] Rod Gauthier DPM Unavailable +[phone] Nallely Hogue RN Unavailable Unavailable Jan Mahmood MD Unavailable +[phone] Brandt Quintana MD Unavailable Jan Mahmood MD Unavailable +[phone] Rio Jaquez MD Unavailable +[phone] Dom Eason MD Unavailable +[phone] Jayla Plaza RN Unavailable +[phone] Sydnee Saleem MD Unavailable Jaimie Vernon RN Unavailable Unavailable Ruth Riddle DPM, Podiatry /Foot and Ankle Surgery Unavailable Jason Alvares MD Unavailable Marquise Hanley MD Unavailable +[phone] Vlad Ramey MD Unavailable +[phone] Joesph Crowe MD Unavailable + [phone] Luis Arrington MD Unavailable +[phone] Michelle Padilla RN Unavailable Unavaila ble Vlad Ramey MD Unavailable +[phone] Marquise Hanley MD Unavailable +[phone] Dom Eason MD Unavailable +[phone] Wagner Oliver MD Unavailable +[phone] Laura Epperson NP Unavailable +[phone] Thom Taveras MD Unavailable +[phone] Joesph Crowe MD Unavailable + [phone] Joesph Crowe MD Unavailable + [phone] Adonay Haq MD Unavailable +[phone] Denilson Srinivasan MD Unavailable + [phone] Jason Alvares MD Unavailable Ruth Riddle DPM, Podiatry /Foot and Ankle Surgery Unavailable Omar Carmona MD Primary Care Provider +1- Jignesh Mathias MD Unavailable Adonay Haq MD Unavailable +1- Omar Carmona MD Unavailable +[phone] Jason Alvares MD Unavailable Jignesh Mathias MD Unavailable Ayad Lopez PhD Unavailable +[phone] Gavi Nieto PA-C Unavailable +[phone] Reason for Visit * Reason Onset Date Comments MyChart Communication 03/17/2022 Encounter Details Date Type Department Care Team (Latest Contact Info) Description 03/17/2022 MyC Medical Advice [facility] [address] 4th [place] [address] Rio Jaquez MD [address] [place] [address] 4 [place] [address] MyChart Communication Social History Tobacco Use [...] than three times a week 08/27/2021 Attends [employer] Not on file 08/27 Do you belong to any clubs o r organizations such as taoism groups, unions, fraternal or athletic groups, or [...] Answer Date Recorded PHQ-2 Score 1 02/16/2022 [facility] Occupat ional Health - Occupational Stress [...] Sex Assigned at Female 09/12/2020 12:05 PM MOTION PICTURE CAMERA OPERATOR Legal Sex Female 3:26 AM MOTION PICTURE CAMERA OPERATOR Gender Identity Female 09/12/2020 12:05 PM MOTION PICTURE CAMERA OPERATOR Sexual Orientation Straight 12/19/2021 10 :44 [...] suspected to have Coronavirus/COVID-19? No / Unsure 03/17/2022 3:52 PM CDT documented as of this encounter Plan of Treatment Upcoming Encounters Date Type Department Care Team (Late st Contact Info) Description 03/26/2025 11:00 AM CDT Therapy Visit [address] [address] Jason Alvares MD 420 [facility] 295 [place], [place] 14[address] Chaya Castillo OTR [address] [address] 03/29/2025 10:30 AM CDT Therapy Visit [facility] [place] [address] [facility] [address] [place] [phone] [place] [address] [address] [place], [place] 820397 04/02/2025 11:00 AM CDT Therapy Visit [facility] [address] [place] [phone] Jason Alvares MD [address] [place] [address] Chaya Castillo OTR [facility] 150 [place] [address] 04/11/2025 12:30 PM CDT Office Visit [facility] [address] 4th [place] [phone] Omar Carmona MD [address] [place] [address] 04/12/2025 2:15 PM CDT Therapy Visit [facility] 150 [place] [address] Jason Alvares MD [address] [place] [address] 256735 Chaya Castillo OTR [facility] 150 [place] [address] 04/16/2025 11:00 AM CDT Therapy Visit [facility] 150 [facility] [place] [address] Jason Alvares MD [address] [place] [address] 746135 Chaya Castillo OTR [facility] [address] 150 [place] [address] 04/23/2025 11:00 AM CDT Therapy Visit [facility] 150 [place] [phone] Jason Alvares MD [address] [place] [address] Chaya Castillo OTR [facility] 150 [place] [address] 04/30/2025 11:00 AM CDT Therapy Visit [facility] 150 [place] [address] Jason Alvares MD [address] [place] [address] Chaya Castillo OTMari [facility] 150 [place] [address] 05/15/2025 12:30 PM CDT Office Visit [address] [phone] Marquise Hanley MD [address] [place] [address] 06/08/2025 9:15 AM CDT Office Visit [facility] [address] [phone] Jignesh Mathias MD [address] [place] [address] 299095 11/05/2025 1:45 PM CDT Office Visit [facility] [address] 3rd [place] [phone] Gavi Nieto PA-C Dermatology [address] [place] [address] [phone] documented as of this encounter Goals Goal [...] documented as of this encounter Care Teams Buildings And Grounds Supervisor Relationship Specialty Start Date End Date Rio Jaquez MD [address] [place] [address] 19783 PCP - General Family Practice 12/02/10 07/13/24 Omar Carmona MD [address] [place] [address]96 PCP - General Family Medicine 07/14/24 Barry Kilpatrick MD [address] [place] [address] [id number] [place] [address] Neurology 07/19/14 Michelle Henderson I, RN Nurse Coordinator Neurology 07/19/14 Rio Jaquez MD [address] [place] [address]67 Family Practice 10/15/14 Jemima Jaramillo MD oncology social worker 11/20/14 Kelley Chin, RN [facility] 909 [place] [address] Nurse Coordinator Cardiology 11/04/15 Sydnee Saleem MD [address] [place] [address] 508 [place] [address] Cardiology 11/04/15 Karlene Moya MD [address] [place] [address] 575675 Ophthalmology 06/24/17 Wilbert Quintero, OD [address] [place] [address] 855055 Optometry 06/24/17 Rod Gauthier DPM [address] [place] [address]65 [facility] [place] Primary Podiatric Medicine 06/21/18 Nallely Hogue, TANIA Registered Nurse 02/20/19 11/23/22 Jan Mahmood MD [address] [place] [address] Gastroenterology 11/05/20 Brandt Quintana MD [address] [place] [address] Resident 11/05/20 Jan Mahmood MD [address] [place] [address] 7[address]99 Assigned Gastroenterology Provider 12/01/20 Rio Jaquez MD [address] [place] [address] Assigned PCP 11/17/20 09/30/24 Dom Eason MD 7 [facility] 353 [place] [address] Internal Medicine 12/02/20 Jayla Plaza RN Specialty Employee Training Specialist Hepatology 01/09/21 02/13/24 Sydnee Saleem MD 6550 [facility] [address] [place] [address] Assigned Heart and Vascular Provider 02/02/21 07/24/22 Jaimie Vernon, TANIA Specialty Employee Training Specialist Cardiology 10/28/21 Ruth Riddle DPM, Podiatry/Foot and Ankle Surgery [address] [facility] 300 [place] [address] Assigned Musculoskeletal Provider 11/30/21 09/30/23 Jason Alvares MD [address] [place] [address] 295 [place] [address] Assigned Neuroscience Provider 01/03/22 05/15/22 Marquise Hanley MD [address] [place] [address] Endocrinology, Diabetes, and Metabolism 03/05/22 Vlad Ramey MD [address] [place] [address]653 Cardiovascular Disease 05/07/22 Joesph Crowe MD [address] [place] [address] [place] [address] Surgery 05/07/22 Luis Arrington MD [address] [place] [address] 49[address] Assigned Neuroscience Provider 05/16/22 05/14/23 Michelle Padilla, TANIA Specialty Employee Training Specialist Cardiology 07/03/22 Vlad Ramey MD [address] [place] [address] 82014 Assigned Heart and Vascular Provider 07/25/22 05/28/23 Marquise Hanley MD [address] [place] [address] 06720 Assigned Endocrinology Provider 08/15/22 Dom Eason MD 717 [facility] 353 [place] [address] Assigned Nephrology Provider 11/28/22 02/19/23 Wagner Oliver MD [address] [place] [address] Critical Care 12/15/22 Laura Epperson, LULU 717 [facility] 1932 [place] [address] Assigned Nephrology Provider 02/20/23 08/30/24 Thom Taveras MD [address] [facility], [address] [place] [address] Assigned Cancer Care Provider 02/06/23 08/20/23 Joesph Crowe MD [address] [place] [address] 9[address]74 Surgery 03/17/23 Joesph Crowe MD [address] [place] [address] 57831 Assigned Surgical Provider 04/03/23 09/30/24 Adonay Haq MD [address] [place] [address] Internal Medicine 06/14/23OctoberDenilson MD [address] [facility] [address] [place] [address] Assigned Heart and Vascular Provider 05/29/23 11/28/24 Jason Alvares MD 420 [facility] 295 [place], [place] 501515 Assigned Neuroscience Provider 05/15/23 11/28/24 Ruth Riddle DPM, Podiatry/Foot and Ankle Surgery [address] [place] [address] Assigned Musculoskeletal Provider 10/22/23 Jignesh Mathias MD [address] [place] [address] Gastroenterology 09/25/24 Adonay Haq MD [address] [place] [address] 53521 Assigned PCP 10/01/24 12/28/24 Omar Carmona MD [address] [place] [address] Assigned PCP 12/29/24 Jason Alvares MD [address] [place] [address] 330115 Assigned Neuroscience Provider 12/29/24 Jignesh Mathias MD [address] [place] [address] 532765 Assigned Surgical Provider 12/29/24 Ayad Lopez, PhD LP [address] [place] [address] 474785 Assigned Behavioral Health Provider 02/28/25 Gavi Nieto PA-C [address] [place] [address] [id number] Physician Registry Rn Dermatology 03/19/25 documented as of this encounter
--- OUTSIDE RECORDS SUMMARY | 2025-03-24 20:29 | XMS_ITS | Encounter Summary ---
Author Organization [facility] Address [address] [place] [address]88 Care Team Providers Care Manufacturing Manager Name Role Phone Rio Jaquez MD Primary Care Provider Barry Kilpatrick MD Unavailable Michelle Henderson I RN Unavailable [phone] Rio Jaquez MD Unavailable +[phone] Jemima Jaramillo MD Unavailable Unavai Kelley Bautista RN Unavailable +[phone] Sydnee Saleem MD Unavailable +[phone] Karlene Moya MD Unavailable +[phone] Wilbert Quintero OD Unavailable +[phone] Rod Gauthier DPM Unavailable Jan Mahmood MD Unavailable +[phone] Brandt Quintana MD Unavailable Jan Mahmood MD Unavailable +[phone] Rio Jaquez MD Unavailable +[phone] Dom Eason MD Unavailable Jayla Plaza RN Unavailable +[phone] Jaimie Vernon RN Unavailable Unavailable Marquise Hanley MD Unavailable +[phone] Vlad Ramey MD Unavailable +[phone] Joesph Crowe MD Unavailable + [phone] Michelle Padilla RN Unavailable Unavaila ble Marquise Hanley MD Unavailable +-[phone] Wagner Oliver MD Unavailable +[phone] Laura Epperson NP Unavailable + [phone] Joesph Crowe MD Unavailable + [phone] Joesph Crowe MD Unavailable + [phone] Adonay Haq MD Unavailable [phone] Denilson Srinivasan MD Unavailable + [phone] Jason Alvares MD Unavailable Ruth Riddle DPM, Podiatry /Foot and Ankle Surgery Unavailable Omar Cramona MD Primary Care Provider [phone] Jignesh Mathias MD Unavailable Adonay Haq MD Unavailable +[phone] Omar Carmona MD Unavailable +[phone] Jason Alvares MD Unavailable Jignesh Mathias MD Unavailable Ayad Lopez PhD LP Unavailable +[phone] Gavi Nieto PA-C Unavailable [phone] Encounter Details Date Type Department Care Team (Late st Contact Info) Description 10/13/2023 [facility] [address] [address] Rio Jaquez MD [address] [address] Social History Tobacco Use Types Packs/Day Years [...] any clubs o r organizations such as yarsanism groups, unions, fraternal or athletic groups, or [...] Answer Date Recorded PHQ-2 Score 2 08/26/2023 [facility] - [...] Sex Assigned at Female 09/12/2020 12:05 PM ANESTHESIOLOGY TECHNOLOGIST Legal Sex Female 3:26 AM ANESTHESIOLOGY TECHNOLOGIST Gender Identity Female 09/12/2020 12:05 PM ANESTHESIOLOGY TECHNOLOGIST Sexual Orientation Straight 12/19/2021 10 :44 AM [...] 03/26/2025 11:00 AM CDT Therapy Visit [address] [phone] Jason Alvares MD [address] [place] [address] Chaya Castillo, OTR FV [address] [address] 03/29/2025 10:30 AM CDT Therapy Visit [facility] [address] [place] [phone] [place] [address] [place], [place] [phone] 04/02/2025 11:00 AM CDT Therapy Visit [address] [phone] Jason Alvares MD [address] [place] [address] Chaya Castillo, OTR FV [address] [address] 04/11/2025 12:30 PM CDT Office Visit [facility] [address] 4th [place] [address] Omar Carmona MD [address] [place] [address] 233305 04/12/2025 2:15 PM CDT Therapy Visit [address] [phone] Jason Alvares MD [address] [place] [address] 106235 Chaya Castillo OTR [facility] [address] [address] [place] [address] 04/16/2025 11:00 AM CDT Therapy Visit [facility] [address] [place] [phone] Jason Alvares MD [address] [place] [address] Chaya Castillo OTR [facility] 150 [place] [address] 04/23/2025 11:00 AM CDT [facility] [address] [facility] [place] [phone] Jason Alvares MD [address] [place] [address] Chaya Castillo OTR [facility] 150 [place] [address] 04/30/2025 11:00 AM CDT Therapy Visit [facility] 150 [facility] [place] [phone] Jason Alvares MD [address] [place] [address] Chaya Castillo OTR [facility] 150 [place] [address] 05/15/2025 12:30 PM CDT Office Visit [address] [phone] Marquise Hanley MD [address] [place] [address] 06/08/2025 9:15 AM CDT Office Visit [facility]ology [facility] [address] [phone] Jignesh Mathias MD [address] [place] [address] 11/05/2025 1:45 PM CDT Office Visit [facility] Dermatology Clinic [address] 3rd [place] [address] Gavi Nieto PA-C Dermatology [address] [place] [address] documented as of this encounter Goals [...] Total Score: 9 06/14/20 23 7:18 AM ANESTHESIOLOGY TECHNOLOGIST documented as of this encounter Care Teams Manufacturing Manager Relationship Specialty Start Date End Date Rio Jaquez MD [address] [place] [address] PCP - General Family Practice 12/02/10 07/13/24 Omar Carmona MD [address] [place] [address] PCP - General Family Medicine 07/14/24 Barry Kilpatrick MD [address] [place] [address] [id number] [place], [place] [phone] Neurology 07/19/14 Michelle Henderson I, RN Nurse Coordinator Neurology 07/19/14 Rio Jaquez MD [address] [place] [address] [address] [place], [place] 421755 Family Practice 10/15/14 Jemima Jaramillo MD director loss prevention 11/20/14 Kelley Chin, TANIA [address] 638485 Nurse Coordinator Cardiology 11/04/15 Sydnee Saleem MD [address] [place] [address] 508 [place], [place] 561105 Cardiology 11/04/15 Karlene Moya MD [address] [place] [address] 027265 Ophthalmology 06/24/17 Wilbert Quintero, OD [address] [place] [address] 467155 Optometry 06/24/17 Rod Gauthier DPM [address] [place] [address] 872415 [place]erry Master Primary Podiatric Medicine 06/21/18 Jan Mahmood MD [address] [place], [place] [address]B [address] [place] [address] Gastroenterology 11/05/20 Brandt Quintana MD 1414 [place] [address] Resident 11/05/20 Jan Mahmood MD [facility] [address] [place] [address] Assigned Gastroenterology Provider 12/01/20 Rio Jaquez MD [address] [place] [address] 4 [place], [place] 472995 Assigned PCP 11/17/20 09/30/24 Dom Eason MD 717 [facility] 353 [place] [address] Internal Medicine 12/02/20 Jayla Plaza, RN Specialty Dairy Feed Mixing Operator Hepatology 01/09/21 02/13/24 Jaimie Vernon, RN Specialty Dairy Feed Mixing Operator Cardiology 10/28/21 Marquise Hanley MD [address] [place] [address]99 Endocrinology, Diabetes, and Metabolism 03/05/22 Vlad Ramey MD [address] [place] [address] 42260 Cardiovascular Disease 05/07/22 Joesph Crowe MD [address] [place] [address] 41221 Surgery 05/07/22 Michelle Padilla, RN Specialty Dairy Feed Mixing Operator Cardiology 07/03/22 Marquise Hanley MD [address] [place] [address] Assigned Endocrinology Provider 08/15/22 Wagner Oliver MD [address] [place] [address] Critical Care 12/15/22 Laura Epperson NP 717 [facility] [address] [place] [address] Assigned Nephrology Provider 02/20/23 08/30/24 Joesph Crowe MD [address] [place] [address] 897355 Surgery 03/17/23 Joesph Crowe MD [address] [place] [address] 379715 Assigned Surgical Provider 04/03/23 09/30/24 Adonay Haq MD [address] [place] [address] 745075 Internal Medicine 06/14/23OctoberDenilson MD [address] [place] [address] Assigned Heart and Vascular Provider 05/29/23 11/28/24 Jason Alvares MD [address] [place] [address] 295 [place], [place] 900445 Assigned Neuroscience Provider 05/15/23 11/28/24 Ruth Riddle DPM, Podiatry/Foot and Ankle Surgery [address] [place] [address] Assigned Musculoskeletal Provider 10/22/23 Jignesh Mathias MD [address] [place] [address] 157865 Gastroenterology 09/25/24 Adonay Haq MD [address] [place] [address] [phone] Assigned PCP 10/01/24 12/28/24 Omar Carmona MD [address] [place] [address] 634795 Assigned PCP 12/29/24 Jason Alvares MD [address] [place] [address] 750835 Assigned Neuroscience Provider 12/29/24 Jignesh Mathias MD [address] [place] [address] 94[address] Assigned Surgical Provider 12/29/24 Ayad Lopez, PhD LP [address] [place] [address] 783685 Assigned Behavioral Health Provider 02/28/25 Gavi Nieto PANavinC [address] [place] [address] Physician Keno Writer Dermatology 03/19/25 documented as of this encounter
--- OUTSIDE RECORDS SUMMARY | 2025-03-24 20:29 | XMS_ITS | Encounter Summary ---
Author Organization [facility] Address [address] [place] [address] Care Team Providers Care Silver Wrapper Name Role Phone Rio Jaquez MD Primary Care Provider Barry Kilpatrick MD Unavailable Michelle Henderson RN Unavailable [phone] Rio Jaquez MD Unavailable +[phone] Jemima Jaramillo MD Unavailable Unavai Kelley Bautista RN Unavailable [phone] Sydnee Saleem MD Unavailable +[phone] Karlene Moya MD Unavailable +[phone] Wilbert Quintero OD Unavailable +[phone] Rod Gauthier DPM Unavailable +[phone] Nallely Hogue RN Unavailable Unavailable Jan Mahmood MD Unavailable +[phone] Brandt Quintana MD Unavailable +[phone] Jan Mahmood MD Unavailable +[phone] Rio Jaquez MD Unavailable +[phone] Dom Eason MD Unavailable +[phone] Jayla Plaza RN Unavailable +[phone] Sydnee [...] Unavailable +[phone] Dom Eason MD Unavailable +[phone] Wagner Oliver MD Unavailable +[phone] Laura Epperson NP Unavailable +[phone] Thom Taveras MD Unavailable +[phone] Joesph Crowe MD Unavailable + [phone] Joesph Crowe MD Unavailable + [phone] Adonay Haq MD Unavailable +[phone] Denilson Srinivasan MD Unavailable + [phone] Jason Alvares MD Unavailable Ruth Riddle DPM, Podiatry /Foot and Ankle Surgery Unavailable Omar Carmona MD Primary Care Provider +[phone] Jignesh Mathias MD Unavailable Adonay Haq MD Unavailable +[phone]- Omar Carmona MD Unavailable +[phone] Jason Alvares MD Unavailable Jignesh Mathias MD Unavailable Ayad Lopez PhD Unavailable [phone] Gavi Nieto PA-C Unavailable [phone] Encounter Details Date Type Department Care Team (Late st Contact Info) Description 03/17/2022 MyC Medical Advice [facility] [place] [address] [place] [address] Ruth Riddle, DPVik, Podiatry/Foot and Ankle Surgery [address] [place], [place] 953847 Social History Tobacco Use Types Packs/Day Years [...] Answer Date Recorded PHQ-2 Score 1 02/16/2022 [facility] [...] Sex Assigned at Female 09/12/2020 12:05 PM WELDER GUN Legal Sex Female 3:26 AM WELDER GUN Gender Identity Female 09/12/2020 12:05 PM WELDER GUN Sexual Orientation Straight 12/19/2021 10 :44 AM [...] encounter Miscellaneous Notes * Telephone Encounter - Merly Weems - 03/19/2022 10:50 AM CDT Responded to patient via [employer]. Merly Weems MBA, ATC * Telephone Encounter - uRth Riddle DPM, Podiatry/Foot and Ankle Surgery - 03/19/2022 10:24 AM CDT Yes I can see her. Insurance may not cover trimming down the callus though just she is aware. Please let her know. Thanks, Ruth Riddle DPM * Telephone Encounter - Merly Weems - 03/19/2022 10:02 AM CDT Patient was last seen by Dr. Riddle on 11/21/21. At that visit patient was given a list of routine nail care options. Patient sent mychart message with concerns about a callus. Please advise if ok to see in clinic or if there are other recommendations. Merly Weems MBA, ATC documented in this encounter Plan of Treatment Upcoming Encounters Date Type Department Care Team (Late st Contact Info) Description 03/26/2025 11:00 AM CDT Therapy Visit [address] [phone] Jason Alvares MD [address] [place] [address] 880565 Chaya Castillo OTR [address] [address] 03/29/2025 10:30 AM CDT Therapy Visit [facility] [address] [place] [address] [phone] [place] [address] [place] [address] 04/02/2025 11:00 AM CDT Therapy Visit [facility] 150 [place] [phone] Jason Alvares MD [address] [place] [address] 272195 Chaya Castillo OTMari [address] [address] 04/11/2025 12:30 PM CDT Office Visit [facility] [address] 4th [place] [phone] Omar Carmona MD [address] [place] [address] 04/12/2025 2:15 PM CDT Therapy Visit [facility] 150 [place] [address]14 Jason Alvares MD [address] [place] [address] Chaya Castillo OTMari [facility] 150 [place] [address] 04/16/2025 11:00 AM CDT Therapy Visit [facility] 150 [facility] [place] [phone] Jason Alvares MD [address] [place] [address] 856745 Chaya Castillo OTR [facility] 150 [place] [address] 04/23/2025 11:00 AM CDT Therapy [facility] 150 [place] [phone] Jason Alvares MD [address] [place] [address] 801175 Chaya Castillo OTR [facility] 150 [place] [address] 04/30/2025 11:00 AM CDT Therapy [facility] 150 [place] [address]14 Jason Alvares MD 420 [facility] 295 [place] [address] CastilloChaya, OTR [facility] 150 [place] [address] 05/15/2025 12:30 PM CDT Office Visit [address] [phone] Marquise Hanley MD [address] [place] [address] 090745 06/08/2025 9:15 AM CDT Office Visit [facility] Hepatology [address] [phone] Jignesh Mathias MD [address] [place] [address] 11/05/2025 1:45 PM CDT Office Visit [facility] Dermatology [address] 3rd [place] [phone] Gavi Nieto PA-C Dermatology [address] [place] [address] documented as of this encounter Goals Goal [...] documented as of this encounter Care Teams Silver Wrapper Relationship Specialty Start Date End Date Rio Jaquez MD [address] [place] [address]321 PCP - General Family Practice 12/02/10 07/13/24 Omar Carmona MD [address] [place] [address] 27684 PCP - General Family Medicine 07/14/24 Barry Kilpatrick MD [address] [place] [address] [id number] [place] [address] Neurology 07/19/14 Michelle Henderson RN Nurse Coordinator Neurology 07/19/14 Rio Jaquez MD [address] [place] [address] 016095 Family Practice 10/15/14 Jemima Jaramillo MD shell trim operator 11/20/14 Kelley Chin, TANIA [address] [address] Nurse Coordinator Cardiology 11/04/15 Sydnee Saleem MD 420 [facility] 508 [place], [place] 251955 Cardiology 11/04/15 Karlene Moya MD [address] [place] [address] [phone] Ophthalmology 06/24/17 Wilbert Quintero, OD 9 [place] [address] Optometry 06/24/17 Rod Gauthier DPM [address] [place] [address] [phone] Printing Specialist Primary Podiatric Medicine 06/21/18 Nallely Hogue, RN Registered Nurse 02/20/19 11/23/22 Jan Mahmood MD [address] [place] [address] 520735 Gastroenterology 11/05/20 Brandt Quintana MD [address] [place] [address] 30407 Resident 11/05/20 aJn Mahmood MD [address] [place] [address] 782605 Assigned Gastroenterology Provider 12/01/20 Rio Jaquez MD [address] [place] [address] 4 [place], [place] 812635 Assigned PCP 11/17/20 09/30/24 Dom Eason MD 717 [facility] 353 [place], [place] 625184 Internal Medicine 12/02/20 Jayla Plaza, RN Specialty Applicator Sprayer Hepatology 01/09/21 02/13/24 Sydnee Saleem MD 6550 [facility] [address] [place] [address] Assigned Heart and Vascular Provider 02/02/21 07/24/22 Jaimie Vernon, RN Specialty Applicator Sprayer Cardiology 10/28/21 Ruth Riddle, DPM, Podiatry/Foot and Ankle Surgery [address] [place] [address] Assigned Musculoskeletal Provider 11/30/21 09/30/23 Jason Alvares MD [address] [place] [address] [phone] Assigned Neuroscience Provider 01/03/22 05/15/22 Marquise Hanley MD [address] [place] [address] 31354 Endocrinology, Diabetes, and Metabolism 03/05/22 Vlad Ramey MD [address] [place] [address] [phone] Cardiovascular Disease 05/07/22 Joesph Crowe MD [address] [place] [address] 070555 Surgery 05/07/22 Luis Arrington MD [address] [place] [address] 57042 Assigned Neuroscience Provider 05/16/22 05/14/23 Michelle Padilla RN Specialty Applicator Sprayer Cardiology 07/03/22 Vlad Ramey MD [address] [place] [address] 336975 Assigned Heart and Vascular Provider 07/25/22 05/28/23 Marquise Hanley MD [address] [place] [address] 86950 Assigned Endocrinology Provider 08/15/22 Dom Eason MD 7 [facility] 353 [place] [address] Assigned Nephrology Provider 11/28/22 02/19/23 Wagner Oliver MD [address] [place] [address] Critical Care 12/15/22 Laura Epperson NP [address] [place] [address] 1932 [place] [address] Assigned Nephrology Provider 02/20/23 08/30/24 Thom Taveras MD [address] [place] [address], [address] [address] Assigned Cancer Care Provider 02/06/23 08/20/23 Joesph Crowe MD [address] [place] [address] 8[address]46 Surgery 03/17/23 Joesph Crowe MD [address] [place] [address] 55599 Assigned Surgical Provider 04/03/23 09/30/24 Adonay Haq MD [address] [place] [address] Internal Medicine 06/14/23October, Denilson Jackson MD [address] [place] [address] Assigned Heart and Vascular Provider 05/29/23 11/28/24 Jason Alvares MD [address] [place] [address] 74897 Assigned Neuroscience Provider 05/15/23 11/28/24 uRth Riddle DPM, Podiatry/Foot and Ankle Surgery [address] [place] [address] Assigned Musculoskeletal Provider 10/22/23 Jignesh Mathias MD [address] [place] [address] Gastroenterology 09/25/24 Adonay Haq MD [address] [place] [address] 20641 Assigned PCP 10/01/24 12/28/24 Omar Carmona MD [address] [place] [address] 70031 Assigned PCP 12/29/24 Jason Alvares MD [address] [place] [address] 89765 Assigned Neuroscience Provider 12/29/24 Jignesh Mathias MD [address] [place] [address] 49515 Assigned Surgical Provider 12/29/24 Ayad Lopez, PhD LP [address] [place] [address] Assigned Behavioral Health Provider 02/28/25 Gavi Nieto PA-C [address] [place] [address] Physician Warehouse Shipping Clerk Dermatology 03/19/25 documented as of this encounter
--- OUTSIDE RECORDS SUMMARY | 2025-03-24 20:29 | XMS_ITS | Encounter Summary ---
Author Organization [place] Address [address] [place] [address] Care Team Providers Care Second Worker Name Role Phone Rio Jaquez MD Primary Care Provider Barry Kilpatrick MD Unavailable Michelle Henderson I RN Unavailable [phone] Rio Jaquez MD Unavailable +[phone] Jemima Jaramillo MD Unavailable Unavai Kelley Bautista RN Unavailable [phone] Sydnee Saleem MD Unavailable +[phone] Karlene Moya MD Unavailable Wilbert Quintero OD Unavailable +[phone] Rod Gauthier DPM Unavailable Jan Mahmood MD Unavailable [phone] Brandt Quintana MD Unavailable Jan Mahmood MD Unavailable +[phone] Rio Jaquez MD Unavailable +[phone] Dom Eason MD Unavailable Jayla Plaza RN Unavailable +[phone] Jaimie Vernon RN Unavailable Unavailable Ruth Riddle DPM, Podiatry /Foot and Ankle Surgery Unavailable Marquise Hanley MD Unavailable +[phone] Vlad Ramey MD Unavailable +[phone] Joesph Crowe MD Unavailable + [phone] Michelle Padilla RN Unavailable Unavaila ble Marquise Hanley MD Unavailable +[phone] Wagner Oliver MD Unavailable +[phone] Laura Epperson NP Unavailable +[phone] Joesph Crowe MD Unavailable + [phone] Joesph Crowe MD Unavailable + [phone] Adonay Haq MD Unavailable [phone] OctoberDenilson MD Unavailable + [phone] Jason Alvares MD Unavailable Ruth Riddle DPM, Podiatry /Foot and Ankle Surgery Unavailable Omar Carmona MD Primary Care Provider [phone] Jignesh Mathias MD Unavailable Adonay Haq MD Unavailable [phone] Omar Carmona MD Unavailable [phone] Jason Alvares MD Unavailable Jignesh Mathias MD Unavailable Ayad Lopez PhD LP Unavailable [phone] Gavi Nieto PA-C Unavailable +[phone] Encounter Details Date Type Department Care Team (Late st Contact Info) Description 09/20/2023 [facility] [address] [phone] Lizbeth Lopes Social History Tobacco Use Types [...] than three times a week 08/27/2021 Attends [employer] Not on file 08/27 Do you [...] Answer Date Recorded PHQ-2 Score 2 08/26/2023 [facility] - Occupational [...] in an abandoned building, in an overnight jail, or couch-surfing.) Yes 07/12/2023 Are you worried [...] Sex Assigned at Female 09/12/2020 12:05 PM JUMPBASTING LINING BASTER Legal Sex Female 3:26 AM JUMPBASTING LINING BASTER Gender Identity Female 09/12/2020 12:05 PM JUMPBASTING LINING BASTER Sexual Orientation Straight 12/19/2021 10 :44 AM [...] 03/26/2025 11:00 AM CDT Therapy Visit [address] [address] Jason Alvares MD [address] [place] [address] Chaya Castillo OTR [facility] [address] [address] [place] [address] 03/29/2025 10:30 AM CDT Therapy Visit [facility] [address] [place] [phone] [place] [address] MICHAEL 300 [place], [place] [address] 04/02/2025 11:00 AM CDT Therapy Visit [address] [phone] Jason Alvares MD [address] [place] [address] Chaya Castillo OTR [facility] [address] [place] [address] 04/11/2025 12:30 PM CDT Office Visit [facility] [address] 4th [place] [address] Omar Carmona MD [address] [place] [address] 233975 04/12/2025 2:15 PM CDT Therapy Visit [address] [phone] Jason Alvares MD [address] [place] [address] Chaya Castillo OTR F[facility] R[facility]ES [facility] 150 [facility] [address] 04/16/2025 11:00 AM CDT Therapy Visit [facility] [place] [phone] Jason Alvares MD [address] [place] [address] Chaya Castillo, OTR [facility] 150 [place] [address] 04/23/2025 11:00 AM CDT Therapy [facility] 150 [place] [phone] Jason Alvares MD [address] [place] [address] Chaya Castillo, OTR [facility] 150 [place] [address] 04/30/2025 11:00 AM CDT Therapy Visit [facility] 150 [facility] [place] [address] Jason Alvares MD [address] [place] [address] Chaya Castillo, OTR [facility] 150 [place] [address] 05/15/2025 12:30 PM CDT Office Visit [address] [address] Marquise Hanley MD [address] [place] [address] 06/08/2025 9:15 AM CDT Office Visit [facility] [address] [phone] Jignesh Mathias MD [address] [place] [address] 11/05/2025 1:45 PM CDT Office Visit [facility] [address] 3rd [place] [address] Gavi Nieto PA-C Dermatology [address] [place] [address] documented as of this encounter Goals [...] Total Score: 9 06/14/20 23 7:18 AM JUMPBASTING LINING BASTER documented as of this encounter Care Teams Second Worker Relationship Specialty Start Date End Date Rio Jaquez MD [address] [place] [address]262 PCP - General Family Practice 12/02/10 07/13/24 Omar Carmona MD [address] [place] [address] 69729 PCP - General Family Medicine 07/14/24 Barry Kilpatrick MD [address] [place] [address] [id number] [place], [place] 057065 Neurology 07/19/14 Michelle Henderson I, RN Nurse Coordinator Neurology 07/19/14 Rio Jaquez MD [address] [place] [address] [address] [place] [address] Family Practice 10/15/14 Jemima Jaramillo MD ship pilot dispatcher 11/20/14 Kelley Chin, TANIA [address] 734635 Nurse Coordinator Cardiology 11/04/15 Sydnee Saleem MD [address] [place] [address] 508 [place], [place] 149175 Cardiology 11/04/15 Karlene Moya MD [address] [place] [address] Ophthalmology 06/24/17 Wilbert Quintero, OD [address] [place] [address] 170845 Optometry 06/24/17 Rod Gauthier DPM [address] [place] [address] 769375 Embedded Software Design Engineer Primary Podiatric Medicine 06/21/18 Jan Mahmood MD [address] [place] [address] [address] [place], [place] 793075 Gastroenterology 11/05/20 Brandt Quintana MD 14[address] [place] [address] Resident 11/05/20 Jan Mahmood MD [facility] [place] [address] Assigned Gastroenterology Provider 12/01/20 Rio Jaquez MD 909 [facility] 4 [place], [place] 653695 Assigned PCP 11/17/20 09/30/24 Dom Eason MD 717 [facility] MICHAEL 353 [place], [place] 247224 Internal Medicine 12/02/20 Jayla Plaza, RN Specialty Logging Superintendent Hepatology 01/09/21 02/13/24 Jaimie Vernon, RN Specialty Logging Superintendent Cardiology 10/28/21 Ruth Riddle DPM, Podiatry/Foot and Ankle Surgery [address] [address] Assigned Musculoskeletal Provider 11/30/21 09/30/23 Marquise Hanley MD [address] [place] [address] 650675 Endocrinology, Diabetes, and Metabolism 03/05/22 Vlad Ramey MD [address] [place] [address] 80617 Cardiovascular Disease 05/07/22 Joesph Crowe MD [address] [place] [address] 50320 Surgery 05/07/22 Michelle Padilla, RN Specialty Logging Superintendent Cardiology 07/03/22 Marquise Hanley MD [address] [place] [address] 64276 Assigned Endocrinology Provider 08/15/22 Wagner Oliver MD [address] [address] Critical Care 12/15/22 Laura Epperson NP 717 [facility] 1932 [place] [address] Assigned Nephrology Provider 02/20/23 08/30/24 Joesph Crowe MD [address] [place] [address] 77903 Surgery 03/17/23 Joesph Crowe MD [address] [place] [address] 89410 Assigned Surgical Provider 04/03/23 09/30/24 Adonay Haq MD [address] [place] [address]29 Internal Medicine 06/14/23 Denilson Srinivasan MD [address] [address] Assigned Heart and Vascular Provider 05/29/23 11/28/24 Jason Alvares MD 420 [facility] 295 [place], [place] 416185 Assigned Neuroscience Provider 05/15/23 11/28/24 Ruth Riddle DPM, Podiatry/Foot and Ankle Surgery [address] [place] [address] Assigned Musculoskeletal Provider 10/22/23 Jignesh Mathias MD [address] [place] [address] 187635 Gastroenterology 09/25/24 Adonay Haq MD [address] [place] [address] 866195 Assigned PCP 10/01/24 12/28/24 Omar Carmona MD [address] [place] [address] 708295 Assigned PCP 12/29/24 Jason Alvares MD [address] [place] [address] 295 [place], [place] 804415 Assigned Neuroscience Provider 12/29/24 Jignesh Mathias MD [address] [place] [address] 24731 Assigned Surgical Provider 12/29/24 Ayad Lopez, PhD LP [address] [place] [address] 057615 Assigned Behavioral Health Provider 02/28/25 Gavi Nieto PA-C 500 [place], [place] 553875 Physician Patch Machine Operator Dermatology 03/19/25 documented as of this encounter
--- OUTSIDE RECORDS SUMMARY | 2025-03-24 20:30 | XMS_ITS | Encounter Summary ---
Author Organization [place] Address [address] [place] [address]31 Care Team Providers Care Automotive Generator Repairer Name Role Phone Rio Jaquez MD Primary Care Provider Barry Kilpatrick MD Unavailable Michelle Henderson I RN Unavailable [phone] Rio Jaquez MD Unavailable [phone] Jemima Jaramillo MD Unavailable Unavai Kelley Bautista RN Unavailable [phone] Sydnee Saleem MD Unavailable [phone] Karlene Moya MD Unavailable Wilbert Quintero OD Unavailable +[phone] Rod Gauthier DPM Unavailable Jan Mahmood MD Unavailable [phone] Brandt Quintana MD Unavailable Jan Mahmood MD Unavailable +[phone] Rio Jaquez MD Unavailable [phone] Dom Eason MD Unavailable Jayla Plaza RN Unavailable +[phone] Jaimie Vernon RN Unavailable Unavailable Ruth RiddleM, Podiatry /Foot and Ankle Surgery Unavailable Marquise Hanley MD Unavailable [phone] Vlad Ramey MD Unavailable +[phone] Joesph Crowe MD Unavailable + [phone] Michelle Padilla RN Unavailable Unavaila ble Marquise Hanley MD Unavailable +[phone] Wagner Oliver MD Unavailable +[phone] Laura Epperson NP Unavailable +[phone] Thom Taveras MD Unavailable [phone] Joesph Crowe MD Unavailable + [phone] Joesph Crowe MD Unavailable + [phone] Adonay Haq MD Unavailable [phone] Denilson Srinivasan MD Unavailable + [phone] Jason Alvares MD Unavailable Ruth Riddle DPM, Podiatry /Foot and Ankle Surgery Unavailable Omar Carmona MD Primary Care Provider [phone] Jignesh Mathias MD Unavailable Adonay Haq MD Unavailable +[phone] Omar Carmona MD Unavailable [phone] Jason Alvares MD Unavailable Jignesh Mathias MD Unavailable Ayad Lopez PhD LP Unavailable [phone] Gavi Nieto PA-C Unavailable [phone] Encounter Details Date Type Department Care Team (Late st Contact Info) Description 07/27/2023 MyC Medical Advice [facility] Primary Care Clinic [address] 4th [place] [address] Rio Jaquez MD 909 [facility] 4 [place], [place] 229605 Social History Tobacco Use Types Packs/Day Years [...] than three times a week 08/27/2021 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 Not on file 08/27 Do you [...] PHQ-2 Answer Date Recorded PHQ-2 Score 2 06/14/2023 [facility] [place] of Occupat ional Health - Occupational Stress [...] Sex Assigned at Female 09/12/2020 12:05 PM MIDDLE SCHOOL BAND TEACHER Legal Sex Female 3:26 AM MIDDLE SCHOOL BAND TEACHER Gender Identity Female 09/12/2020 12:05 PM MIDDLE SCHOOL BAND TEACHER Sexual Orientation Straight 12/19/2021 10 :44 AM CDT Occupation Industry Job Start Date Job End Date on disability for FMS Not on file Not on file Not on file disabled Not on file Not on file Not on file documented as of this encounter Miscellaneous Notes * Telephone Encounter - Rio Jaquez MD - 07/29/2023 2:17 PM MIDDLE SCHOOL BAND TEACHER July 29, 2023 Could consider second opinion through [facility]. Ask for cardiac congenital heart clinic. [phone] or [email or web address] Rio Jaquez MD [employer]CHOOL BAND TEACHER documented in this encounter Plan of Treatment Upcoming Encounters Date Type Department Care Team (Late st Contact Info) Description 03/26/2025 11:00 AM CDT Therapy Visit [facility] 150 [place] [phone] Jason Alvares MD [address] [place] [address] 383815 Chaya Castillo OTR [address] [address] 03/29/2025 10:30 AM CDT Therapy Visit [facility] [address] [place] [phone] [place] [address] MICHAEL 300 [place] [address] 04/02/2025 11:00 AM CDT Therapy Visit [facility] [address] [place] [phone] Jason Alvares MD [address] [place] [address] 779665 Chaya Castillo OTR [facility] 150 [place] [address] 04/11/2025 12:30 PM CDT Office Visit [facility] Primary Care Clinic [address] 4th [place] [phone] Omar Carmona MD [address] [place] [address] 04/12/2025 2:15 PM CDT Therapy Visit [facility] [address] [place] [phone] Jason Alvares MD [address] [place] [address] Chaya Castillo OTMari FV [facility] 150 [place] [address] 04/16/2025 11:00 AM CDT Therapy Visit [facility] [address] [place] [phone] Jason Alvares MD [address] [place] [address] 617[address] Chaya Castillo OTR [facility] 150 [place] [address] 04/23/2025 11:00 AM CDT Therapy Visit [facility] [address] [place] [address]740414 Jasno Alvares MD [address] [place] [address] Chaya Castillo OTR [facility] 150 [place] [address] 04/30/2025 11:00 AM CDT Therapy Visit [facility] [address] [place] [address]979114 Jason Alvares MD [address] [place] [facility] 295 [place], [place] 789165 Chaya Castillo, OTR [address] [address] 05/15/2025 12:30 PM CDT Office Visit [address] [phone] Marquise Hanley MD [address] [place] [address] 303115 06/08/2025 9:15 AM CDT Office Visit [facility] Hepatology [address] [phone] Jignesh Mathias MD [address] [place] [address] 992015 11/05/2025 1:45 PM CDT Office Visit [facility] Dermatology Clinic [address] 3rd [place] [address] Gavi Nieto PA-C Dermatology [address] [place] [address] documented as of this encounter Goals Goal [...] Noted Time PHQ-9 Depression Total Score: 9 11/06/20 23 7:18 AM MIDDLE SCHOOL BAND TEACHER documented as of this encounter Care Teams Automotive Generator Repairer Relationship Specialty Start Date End Date Rio Jaquez MD [address] [place] [address] PCP - General Family Practice 12/02/10 07/13/24 Omar Carmona MD [address] [place] [address]102 PCP - General Family Medicine 07/14/24 Barry Kilpatrick MD [address] [place] [address] [id number] [place] [address] Neurology 07/19/14 Michelle Henderson RN Nurse Coordinator Neurology 07/19/14 Rio Jaquez MD [address] [place] [address] Family Practice 10/15/14 Jemima Jaramillo MD livestock farm manager 11/20/14 Kelley Chin, TANIA [address] 710485 Nurse Coordinator Cardiology 11/04/15 Sydnee Saleem MD 420 [facility] 508 [place], [place] [address] Cardiology 11/04/15 Karlene Moya MD [address] [place] [address] 596335 Ophthalmology 06/24/17 Wilbert Quintero, OD 909 [place] [address] Optometry 06/24/17 Rod Gauthier DPM [address] [place] [address] 6[address] Car Lot Attendant Primary Podiatric Medicine 06/21/18 Jan Mahmodo MD 516 [facility] 2A [place], [place] 6[address]395 Gastroenterology 11/05/20 Brandt Quintana MD [address] [place] [address] Resident 11/05/20 Jan Mahmood MD 6 [facility] 2A [place] [address] Assigned Gastroenterology Provider 12/01/20 Rio Jaquez MD 909 [facility] 4 [place] [address] Assigned PCP 11/17/20 09/30/24 Dom Eason MD 717 [facility] 353 [place] [address] Internal Medicine 12/02/20 Jayla Plaza, RN Specialty Buffer Chrome Hepatology 01/09/21 02/13/24 Jaimie Vernon, TANIA Specialty Buffer Chrome Cardiology 10/28/21 Ruth Riddle DPM, Podiatry/Foot and Ankle Surgery [address] [place] [address] Assigned Musculoskeletal Provider 11/30/21 09/30/23 Marquise Hanley MD [address] [place] [address] Endocrinology, Diabetes, and Metabolism 03/05/22 Vlad Ramey MD [address] [place] [address] 81927 Cardiovascular Disease 05/07/22 Joesph Crowe MD [address] [place] [address] 23835 Surgery 05/07/22 Michelle Padilla, RN Specialty Buffer Chrome Cardiology 07/03/22 Marquise Hanley MD [address] [place] [address] 42068 Assigned Endocrinology Provider 08/15/22 Wagner Oliver MD [address] [place] [address] Critical Care 12/15/22 Laura Epperson, LULU 717 [facility] 1932 [place] [address] Assigned Nephrology Provider 02/20/23 08/30/24 Thom Taveras MD [facility] [address] [place] [address] Assigned Cancer Care Provider 02/06/23 08/20/23 Joesph Crowe MD [address] [place] [address] 19284 Surgery 03/17/23 Joesph Crowe MD [address] [place] [address] 52776 Assigned Surgical Provider 04/03/23 09/30/24 Adonay Haq MD [address] [place] [address] Internal Medicine 06/14/23OctoberDenilson MD [address] [facility] [address] [place] [address] Assigned Heart and Vascular Provider 05/29/23 11/28/24 Jason Alvares MD 420 [facility] 295 [place], [place] 234365 Assigned Neuroscience Provider 05/15/23 11/28/24 Ruth Riddle DPM, Podiatry/Foot and Ankle Surgery [address] [place] [address] Assigned Musculoskeletal Provider 10/22/23 Jignesh Mathias MD [address] [place] [address] Gastroenterology 09/25/24 Adonay Haq MD [address] [place] [address] 20961 Assigned PCP 10/01/24 12/28/24 Omar Carmona MD [address] [place] [address] Assigned PCP 12/29/24 Jason Alvares MD [address] [place] [address] 567065 Assigned Neuroscience Provider 12/29/24 Jignesh Mathias MD [address] [place] [address] 555205 Assigned Surgical Provider 12/29/24 Ayad Lopez, PhD LP [address] [place] [address] 019735 Assigned Behavioral Health Provider 02/28/25 Gavi Nieto PA-C [address] [place] [address] [id number] Physician Diesel Engine Inspector Dermatology 03/19/25 documented as of this encounter
--- OUTSIDE RECORDS SUMMARY | 2025-03-24 20:30 | XMS_ITS | Encounter Summary ---
Author Organization [facility] Address [address] [place] [address]83 Care Team Providers Care Measurement Supervisor Name Role Phone Rio Jaquez MD Primary Care Provider Barry Kilpatrick MD Unavailable Michelle Henderson I RN Unavailable [phone] Rio Jaquez MD Unavailable +[phone] Jemima Jaramillo MD Unavailable Unavai Kelley Bautista RN Unavailable [phone] Sydnee Saleem MD Unavailable +[phone] Karlene Moya MD Unavailable Wilbert Quintero OD Unavailable +[phone] Rod Gauthier DPM Unavailable +[phone] Jan Mahmood MD Unavailable +[phone] Brandt Quintana MD Unavailable [phone] Jan Mahmood MD Unavailable +[phone] Rio Jaquze MD Unavailable +[phone] Dom Eason MD Unavailable Jayla Plaza RN Unavailable +[phone] Jaimie Vernon RN Unavailable Unavailable Ruth Riddle DPM, Podiatry /Foot and Ankle Surgery Unavailable Marquise Hanley MD Unavailable +[phone] Vlad Ramey MD Unavailable +[phone] Joesph Crowe MD Unavailable + [phone] Michelle Padilla RN Unavailable Unavaila ble Marquise Hanley MD Unavailable +[phone] Wagner Oliver MD Unavailable +[phone] Laura Epperson NP Unavailable +[phone] Joesph Crowe MD Unavailable + [phone] Joesph Crowe MD Unavailable + [phone] Adonay Haq MD Unavailable +[phone] OctoberDenilson MD Unavailable + [phone] Jason Alvares MD Unavailable Ruth Riddle DPM, Podiatry /Foot and Ankle Surgery Unavailable Omar Carmona MD Primary Care Provider [phone] Jignesh Mathias MD Unavailable Adonay Haq MD Unavailable [phone] Omar Carmona MD Unavailable +[phone] Jason Alvares MD Unavailable Jignesh Mathias MD Unavailable Ayad Lopez PhD Unavailable [phone] Gavi Nieto PA-C Unavailable +[phone] Encounter Details Date Type Department Care Team (Late st Contact Info) Description 08/30/2023 [facility] [address] [facility] [address] [place] [address] Radha Blanco LPN Social History Tobacco Use Types Packs/Day [...] Answer Date Recorded PHQ-2 Score 2 08/26/2023 [facility] [...] at Female 09/12/2020 12:05 PM GRAPHIC DESIGN MANAGER Legal Sex Female 3:26 AM GRAPHIC DESIGN MANAGER Gender Identity Female 09/12/2020 12:05 PM GRAPHIC DESIGN MANAGER Sexual Orientation Straight 12/19/2021 10 :44 [...] Description 03/26/2025 11:00 AM CDT Therapy Visit [address] [phone] Jason Alvares MD [address] [place] [address] [phone] Chaya Castillo, [facility]TR [facility] [address] [place] [address] 03/29/2025 10:30 AM CDT Therapy Visit [facility] [address] [place] [phone] [place] [address] MICHAEL [address] [place], [place] [phone] 04/02/2025 11:00 AM CDT Therapy Visit [address] [phone] Jason Alvares MD [address] [place] [address] Chaya Castillo, OTR [address] [address] 04/11/2025 12:30 PM CDT Office Visit [facility] [address] 4th [place] [address] Omar Carmona MD [address] [place] [address] 352805 04/12/2025 2:15 PM CDT Therapy Visit [address] [phone] Jason Alvares MD [address] [place] [address] 027105 Chaya Castillo, OTR [facility] [address] [place] [address] 04/16/2025 11:00 AM CDT Therapy Visit [facility] [place] [address] [place] [phone] Jason Alvares MD [address] [place] [address] Chaya Castillo OTR [facility] 150 [facility] [place] [address] 04/23/2025 11:00 AM CDT Therapy Visit [facility] [address] [facility] [place] [phone] Jason Alvares MD [address] [place] [address] Chaya Castillo OTR [facility] 150 [facility] [place] [address] 04/30/2025 11:00 AM CDT Therapy Visit [facility] [address] [facility] [place] [phone] Jason Alvares MD [address] [place] [address] Chaya Castillo OTR [facility] 150 [facility] [place] [address] 05/15/2025 12:30 PM CDT Office Visit [address] [phone] Marquise Hanley MD [address] [place] [address] 06/08/2025 9:15 AM CDT Office Visit [facility] [address] [address] Jignesh Mathias MD [address] [place] [address] 11/05/2025 1:45 PM CDT Office Visit [facility] [address] 3rd [place] [address] Gavi Nieto PA-C Dermatology [address] [place] [address] documented as of this encounter Goals [...] Total Score: 9 06/14/20 23 7:18 AM GRAPHIC DESIGN MANAGER documented as of this encounter Care Teams Measurement Supervisor Relationship Specialty Start Date End Date Rio Jaquez MD [address] [place] [address] 4 [place] [address] PCP - General Family Practice 12/02/10 07/13/24 Omar Carmona MD [address] [place] [address] 19367 PCP - General Family Medicine 07/14/24 Barry Kilpatrick MD [address] [place] [address] [id number] [place], [place] 443005 Neurology 07/19/14 Michelle Henderson I, RN Nurse Coordinator Neurology 07/19/14 Rio Jaquez MD [address] [place] [address] [address] 4 [place], [place] 039915 Family Practice 10/15/14 Jemima Jaramillo MD documentation specialist 11/20/14 Kelley Chin, TANIA [address] 233105 Nurse Coordinator Cardiology 11/04/15 Sydnee Saleem MD [address] [place] [address] [facility] [address] [place], [place] 945305 Cardiology 11/04/15 Karlene Moya MD [address] [place] [address] [phone] Ophthalmology 06/24/17 Wilbert Quintero, OD [address] [place] [address] 436515 Optometry 06/24/17 Rod Gauthier DPM [address] [place] [address] [phone] Manager Registration Primary Podiatric Medicine 06/21/18 Jan Mahmood MD [address] [place] [address] [address] [place], [place] 970935 Gastroenterology 11/05/20 Brandt Quintana MD 1414 [place] [address] Resident 11/05/20 Jan Mahmood MD [address] [facility] 2A [place] [address] Assigned Gastroenterology Provider 12/01/20 Rio Jaquez MD [address] [place] [address] [phone] Assigned PCP 11/17/20 09/30/24 Dom Eason MD [address] [place] [address] 84262 Internal Medicine 12/02/20 Jayla Plaza, RN Specialty Thermospray Operator Hepatology 01/09/21 02/13/24 Jaimie Vernon, RN Specialty Thermospray Operator Cardiology 10/28/21 Ruth Riddle, DPM, Podiatry/Foot and Ankle Surgery [address] [address] Assigned Musculoskeletal Provider 11/30/21 09/30/23 Marquise Hanley MD [address] [place] [address] 797405 Endocrinology, Diabetes, and Metabolism 03/05/22 Vlad Ramey MD [address] [place] [address] 11137 Cardiovascular Disease 05/07/22 Joesph Crowe MD [address] [place] [address] 16570 Surgery 05/07/22 Michelle Padilla, RN Specialty Thermospray Operator Cardiology 07/03/22 Marquise Hanley MD [address] [place] [address] 73348 Assigned Endocrinology Provider 08/15/22 Wagner Oliver MD [address] [address] Critical Care 12/15/22 Laura Epperson NP [address] [place] [address] 1932 [place] [address] Assigned Nephrology Provider 02/20/23 08/30/24 Joesph Crowe MD [address] [place] [address] 46109 Surgery 03/17/23 Joesph Crowe MD [address] [place] [address] 39525 Assigned Surgical Provider 04/03/23 09/30/24 Adonay Haq MD [address] [place] [address] 65471 Internal Medicine 06/14/23OctoberDenilson MD [address] [address] Assigned Heart and Vascular Provider 05/29/23 11/28/24 Jason Alvares MD [address] [place] [address] 00571 Assigned Neuroscience Provider 05/15/23 11/28/24 Ruth Riddle, DPM, Podiatry/Foot and Ankle Surgery [address] [place] [address]10 Assigned Musculoskeletal Provider 10/22/23 Jignesh Mathias MD [address] [place] [address] Gastroenterology 09/25/24 Adonay Haq MD [address] [place] [address] 12979 Assigned PCP 10/01/24 12/28/24 Omar Carmona MD [address] [place] [address] 753565 Assigned PCP 12/29/24 Jason Alvares MD [address] [place] [address] 91051 Assigned Neuroscience Provider 12/29/24 Jignesh Mathias MD [address] [place] [address] 859155 Assigned Surgical Provider 12/29/24 Ayad Lopez, PhD LP [address] [place] [address] 419605 Assigned Behavioral Health Provider 02/28/25 Gavi Nieto PA-C [address] [place] [address] Physician Proof Technician Dermatology 03/19/25 documented as of this encounter
--- OUTSIDE RECORDS SUMMARY | 2025-03-24 20:30 | XMS_ITS | Encounter Summary ---
Author Organization [facility] Address [address] [place] [address] Care Team Providers Care Theatrical Performer Name Role Phone Rio Jaquez MD Primary Care Provider Barry Kilpatrick MD Unavailable Michelle Henderson I RN Unavailable [phone] Rio Jaquez MD Unavailable [phone] Jemima Jaramillo MD Unavailable Unavai Kellye Bautista RN Unavailable [phone] Sydnee Saleem MD Unavailable [phone] Karlene Moya MD Unavailable Wilbert Quintero OD Unavailable [phone] Rod Gauthier DPM Unavailable [phone] Jan Mahmood MD Unavailable [phone] Brandt Quintana MD Unavailable Jan Mahmood MD Unavailable +[phone] Rio Jaquez MD Unavailable [phone] Dom Eason MD Unavailable Jayla Plaza RN Unavailable +[phone] Jaimie Vernon RN Unavailable Unavailable Ruth RiddleM, Podiatry /Foot and Ankle Surgery Unavailable Marquise Hanley MD Unavailable +[phone] Vlad Ramey MD Unavailable +[phone] Joesph Crowe MD Unavailable + [phone] Michelle Padilla RN Unavailable Unavaila ble Marquise Hanley MD Unavailable +[phone] Wagner Oliver MD Unavailable +[phone] Laura Epperson NP Unavailable +[phone] Thom Taveras MD Unavailable +[phone] Joepsh Crowe MD Unavailable + [phone] Joesph Crowe MD Unavailable + [phone] Adonay Haq MD Unavailable [phone] Denilson Srinivasan MD Unavailable + [phone] Jason Alvares MD Unavailable Ruth Riddle DPM, Podiatry /Foot and Ankle Surgery Unavailable Omar Carmoan MD Primary Care Provider [phone] Jignesh Mathias MD Unavailable Adonay Haq MD Unavailable +[phone] Omar Carmona MD Unavailable +[phone] Jason Alvares MD Unavailable Jignesh Mathias MD Unavailable Ayad Lopez PhD LP Unavailable [phone] Gavi Nieto PA-C Unavailable [phone] Encounter Details Date Type Department Care Team (Late st Contact Info) Description 08/19/2023 [facility] Internal Medicine [address] 4th [place] [address] Lizbeth Lopes Social History Tobacco [...] Answer Date Recorded PHQ-2 Score 2 06/14/2023 [facility] [...] Sex Assigned at Female 09/12/2020 12:05 PM TARRING MACHINE OPERATOR Legal Sex Female 3:26 AM TARRING MACHINE OPERATOR Gender Identity Female 09/12/2020 12:05 PM TARRING MACHINE OPERATOR Sexual Orientation Straight 12/19/2021 10 [...] 03/26/2025 11:00 AM CDT Therapy Visit [address] [place] [phone] Jason Alvares MD [address] [address] Chaya Castillo, OTR [facility] [address] [place] [address] 03/29/2025 10:30 AM CDT Therapy Visit [facility] [address] [place] [phone] [place] [address] MICHAEL [address] [place] [address] [id number] 04/02/2025 11:00 AM CDT Therapy Visit [address] [phone] Jason Alvares MD [address] [place] [address] Chaya Castillo, OTR [facility] [address] [place] [address]124 04/11/2025 12:30 PM CDT Office Visit [facility] [address] 4th [place] [phone] Omar Carmona MD [address] [place] [address] 308145 04/12/2025 2:15 PM CDT Therapy Visit [address] [phone] Jason Alvares MD [address] [place] [address] Chaya Castillo OTR [facility] [address] [place] [address] 04/16/2025 11:00 AM CDT Therapy Visit [facility] [place] [address] [place] [phone] Jason Alvares MD [address] [place] [address] Chaya Castillo OTR [facility] 150 [facility] [place] [address] 04/23/2025 11:00 AM CDT Therapy Visit [facility] [place] [phone] Jason Alvares MD [address] [place] [address] Chaya Castillo OTR [facility] [address] [facility] [place] [address] 04/30/2025 11:00 AM CDT Therapy Visit [facility] 150 [facility] [place] [phone] Jason Alvares MD [address] [place] [address] Chaya Castillo OTR [facility] [address] [facility] [place] [address] 05/15/2025 12:30 PM CDT Office Visit [address] [address] Marquise Hanley MD [address] [place] [address]296 06/08/2025 9:15 AM CDT Office Visit [facility] [address] [phone] Jignesh Mathias MD [address] [place] [address] 8[address]45 11/05/2025 1:45 PM CDT Office Visit [facility] [address] 3rd [place] [phone] Gavi Nieto PANavinC Dermatology [address] [place] [address] documented as of this encounter Goals Goal [...] Total Score: 9 06/14/20 23 7:18 AM TARRING MACHINE OPERATOR documented as of this encounter Care Teams Theatrical Performer Relationship Specialty Start Date End Date Rio Jaquez MD [address] [place] [address] 4 [place] [address] PCP - General Family Practice 12/02/10 07/13/24 Omar Carmona MD [address] [place] [address] 55189 PCP - General Family Medicine 07/14/24 Barry Kilpatrick MD [address] [place] [address] [id number] [place] [address] Neurology 07/19/14 Michelle Henderson I, RN Nurse Coordinator Neurology 07/19/14 Rio Jaquez MD [address] [place] [address] 4 [place], [place] 811355 Family Practice 10/15/14 Jemima Jaramillo MD us administrative law judge 11/20/14 Kelley Chin, TANIA [address] 957765 Nurse Coordinator Cardiology 11/04/15 Sydnee Saleem MD [address] [place] [address] 508 [place], [place] 198255 Cardiology 11/04/15 Karlene Moya MD [address] [place] [address] 061815 Ophthalmology 06/24/17 Wilbert Quintero, OD [address] [place] [address] [phone] Optometry 06/24/17 Rod Gauthier DPM [address] [place] [address] [phone] Golf Course Mechanic Primary Podiatric Medicine 06/21/18 Jan Mahmood MD [address] [place] [address] 2[address] [place] [address] Gastroenterology 11/05/20 Brandt Quintana MD 1414 [place] [address] Resident 11/05/20 Jna Mahmood MD 516 [facility] 2A [place] [address] Assigned Gastroenterology Provider 12/01/20 Rio Jaquez MD [address] [place] [address] 33043 Assigned PCP 11/17/20 09/30/24 Dom Eason MD [address] [place] [address]31 Internal Medicine 12/02/20 Jayla Plaza, RN Specialty Field Gauger Hepatology 01/09/21 02/13/24 Jaimie Vernon, RN Specialty Field Gauger Cardiology 10/28/21 Ruth Riddle DPM, Podiatry/Foot and Ankle Surgery [address] [address] [address] Assigned Musculoskeletal Provider 11/30/21 09/30/23 Marquise Hanley MD [address] [place] [address]193 Endocrinology, Diabetes, and Metabolism 03/05/22 Vlad Ramey MD [address] [place] [address] 83763 Cardiovascular Disease 05/07/22 Joesph Crowe MD [address] [place] [address] 33456 Surgery 05/07/22 Michelle Padilla, RN Specialty Field Gauger Cardiology 07/03/22 Marquise Hanley MD [address] [place] [address] 42172 Assigned Endocrinology Provider 08/15/22 Wagner Oliver MD [address] [place] [address] Critical Care 12/15/22 Laura Epperson NP [address] [place], [place] [address] [place] [address] Assigned Nephrology Provider 02/20/23 08/30/24 Thom Taveras MD [address] [place] [address]13 Assigned Cancer Care Provider 02/06/23 08/20/23 Joesph Crowe MD [address] [place] [address] 09352 Surgery 03/17/23 Joesph Crowe MD [address] [place] [address] 02074 Assigned Surgical Provider 04/03/23 09/30/24 Adonay Haq MD [address] [place] [address] 03164 Internal Medicine 06/14/23OctoberDenlison MD [address] [place] [address] Assigned Heart and Vascular Provider 05/29/23 11/28/24 Jason Alvares MD [address] [place] [address] 0[address] Assigned Neuroscience Provider 05/15/23 11/28/24 Ruth Riddle, DPM, Podiatry/Foot and Ankle Surgery [address] [place] [address] Assigned Musculoskeletal Provider 10/22/23 Jignesh Mathias MD [address] [place] [address] 85662 Gastroenterology 09/25/24 Adonay Haq MD [address] [place] [address] 9[address]00 Assigned PCP 10/01/24 12/28/24 Omar Carmona MD [address] [place] [address] 45281 Assigned PCP 12/29/24 Jason Alvares MD [address] [place] [address] 59980 Assigned Neuroscience Provider 12/29/24 Jignesh Mathias MD [address] [place] [address] 16012 Assigned Surgical Provider 12/29/24 Ayad Lopez, PhD LP [address] [place] [address] Assigned Behavioral Health Provider 02/28/25 Gavi Nieto PA-C [address] [place] [address] Physician Development Director Dermatology 03/19/25 documented as of this encounter
--- OUTSIDE RECORDS SUMMARY | 2025-03-24 20:30 | XMS_ITS | Clinical Summary ---
Author Organization [facility] Address [address] [place] [address] Care Team Providers Care Financial Accounting Analyst Name Role Phone Elsewhere, Pcp Primary Care Provider Unavailabl e Source Comments Patient records contain information from all sites at [facility]. For routine questions regarding patient records, call [phone] during business hours, M-F 8:00 AM - 5:00 PM Central Time. Record requests for emergency care only can be directed to [phone] at any time.[facility] Allergies Active Allergy Reactions Criticality Noted Date Comments Cephalexin Anaphylaxis,Hives (Reselect Reaction),Other (see comments),Wheezing (Reselect Reaction) High 11/29/2006 Other reaction(s): Throat Swelling/Closing, Wheezing Codeine Other (see comments),Hives (Reselect Reaction) 08/23/2002 Duloxetine Other (see comments),Anaphylaxi s High 08/10/2011 Liver cannot tolerate this medication Other reaction(s): *Unknown Liver cannot tolerate this medication Liver cannot tolerate this medication Gabapentin Other (see comments) 04/17/2010 Latex Rash Low 03/06/2016 Pertussis Vaccines Other (see comments) 010 Husyrmc-Ejr-Mvl Reductase Inhibitors Nausea Only,Other (see comments) High 09/12/2021 Elevated liver function myalgia fatigue Sulfa (Sulfonamide Antibiotics) Other (see comments),Shortness of breath (Reselect Reaction) Medium 08/23/2002 Medications * This document contains information received from the source organization and may not represent a complete record from that organization. levothyroxine (SYNTHROID, LEVOTHROID) 50 mcg tablet 50 mcg. Mon, Wed, Fri Sat and Sun 05/19/20 16 Active levothyroxine (Synthroid) 25 mcg tablet 25 mcg. Tue and thur 07/05/20 23 Active magnesium oxide (MAG-OX) 400 mg (241.3 mg magnesium) tablet 1 tablet. 05/17/20 21 Active melatonin 3 mg tablet Take 3 mg by mouth at bedtime. 11/02/19 21 Active omeprazole (PriLOSEC) [address] capsule Take 1 capsule by mouth daily. 04/07/20 21 Active rifAXIMin (XIFAXAN) 550 mg tablet 550 mg 2 (two) times a day. 11/23/19 21 Active medical cannabis capsule 3 capsules daily. 03/25/20 21 Active folic acid 400 mcg tablet 400 mcg daily. 03/21/20 21 Active Vitamin B-1, mononitrate, 100 mg tablet 08/07/20 23 Active levETIRAcetam (Keppra) 1,000 mg tablet TAKE 1 TABLET(1000 MG) BY MOUTH TWICE DAILY 180 tablet 3 09/12/19 25 Active levETIRAcetam (Keppra) 250 mg tablet Take 250 mg by mouth. 10/11/19 25 Active Vitamin D3 50 mcg (2,000 unit) tablet Take 50 mcg by mouth daily. Active hydrOXYzine (Atarax) 25 mg tabletIndicati ons:Depression Major Recurrent Mild Take 1-2 tablets (25-50 mg total) by mouth as needed for anxiety. 30 tablet 3 10/14/19 25 Active benzonatate (Tessalon Perles) 100 mg capsuleIndicat ions:Cough Acute Take 1 capsule (100 mg total) by mouth 3 (three) times a day as needed for cough. 20 capsule 11/28/19 25 Active albuterol 90 mcg/actuation inhaler INHALE 2 PUFFS BY MOUTH EVERY 6 HOURS NEEDED FOR WHEEZING 18 g 3 12/20/19 25 Active ferrous gluconate (Fergon) 324 mg (38 mg iron) tablet Take 324 mg by mouth daily with morning meal. 12/06/19 25 Active pregabalin (Lyrica) 50 mg capsule Take 1 capsule (50 mg total) by mouth 2 (two) times a day. 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 Hypotension Orthostatic 06/28/2024 Syncope 06/28/2024 Dyspnea Multifactorial 10/14/2023 Exposure To Tobacco 10/14/2023 Anemia 10/14/2023 Cardiomegaly 09/15/2023 Deficiency Nutritional 07/14/2023 Unilateral Inguinal Hernia W ithout Obstruction Or Gangrene Not Specified As Recurrent 07/14/2023 Osteopetrosis 03/15/2023 Other Osteoporosis Vertebra With Pathological Fracture Subsequent With Routine Healing 03/15/2023 Fracture T11-12 Wedge Compression Sequela 2022 Other Specified Disorders Of Adrenal Gland 02/01 Overview (09/15/2023): left Other Specified Disorders Of Bone Density And Structure Multiple Sites 02/01/2023 Pain Foot Right 03/05/2022 Tumor Benign Adrenal Left 03/05/2022 Chronic Kidney Disease Stage 2 Glomerular Filtration Rate 60 To 89 08/27/2021 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 Subdural Hematoma Nontraumatic 01/11/2021 Cirrhosis Alcoholic 01/09/2021 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 Overview (09/15/2023): Added automatically from request for surgery [id number] Bloating Abdominal 12/13/2020 Tachycardia 12/13/2020 Acute On Chronic Diastolic (Congestive) Heart Fa ilure 11/28/2020 Encephalopathy Metabolic 11/28/2020 Edentulous Partial 11/07/2020 Pain Joint 07/02/2020 Weakness Muscle 07/02/2020 Lipodystrophy 03/04/2020 Tinea Corporis 11/28/2019 Systemic Involvement Of Connective Tissue Unspec ified 10/11/2018 Chronic Insomnia Disorder 05/19/2018 Localized Enlarged Lymph Nodes 07/21/2016 Hemorrhage Subarachnoid Nontraumatic 03/06/2016 Depression Major Recurrent Mild 09/16/2015 Nerve Root And Plexus Disorder Unspecified 02/26 Dry Beriberi 06/26/2014 Dry Eye Syndrome Right 06/25/2014 Overview (09/15/2023): Problem list name updated by automated process. Provider to review Myopia Bilateral 06/25/2014 Presbyopia 06/25/2014 Tobacco Use 04/13/2014 Overview (10/12/2024): x 31 years. trying to quit. Hypothyroidism 06/06/2013 Patent Foramen Ovale 04/26/2012 Deficiency Vitamin D 01/12/2012 Overview (09/15/2023): (Problem list name updated by automated process. Provider to review and confirm.) Sacrococcygeal Disorders Not Elsewhere Classifie d 01/12/2012 Apnea Sleep Obstructive 05/13/2011 Overview (09/15/2023): Does not use CPAP but is on oxygen at night Overview: Does not use CPAP but is on oxygen at night Sarcoidosis Pulmonary 05/13/2011 Anxiety Generalized Disorder 04/09/2011 Ataxia 04/09/2011 Dependence Nicotine 04/09/2011 Malnutrition Protein-Calorie Unspecified 011 Fibromyalgia 04/09/2011 Persistent Depressive Disorder 04/09/2011 Polyneuropathy 04/09/2011 Obesity Unspecified 04/09/2011 Overview (09/15/2023): Problem list name updated by automated process. Provider to review Alcohol Mild Use Disorder (Abuse) Uncomplicated 02/20/2010 Overview (09/15/2023): Last Assessment & Plan: Currently abstinent Hypertension Essential Primary 01/20/2010 Fatty Liver 09/11/2009 Overview (09/15/2023): Noted on Abdominal CT 08/18 Overview: Noted on Abdominal CT 08/18 Leiomyoma (Fibroid) Uterus 09/11/2009 Overview (09/15/2023): ON 08/18 Ct scan Overview: ON 08/18 Ct scan Headache Unspecified 07/03/2009 Gastroesophageal Reflux Disease NOS 11/29/2007 Migraine Headache 11/29/2007 Encounters * This document contains information received from the source organization and may not represent a complete record from that organization. Date Type Department Care Team Description 03/07/2025 Refill Department of Family Medicine, [facility], in [address] [phone] Mahsa Gipson M.D. Med Refill 02/16/2025 Refill Department of Family Medicine, [facility], [address] [phone] Yonis Guerra M.D. Med Refill 02/16/2025 Refill Department of Family Medicine, [facility], [address] [phone] Yonis Guerra M.D. Med Refill 02/15/2025 11:47 AM CDT - 02/15/2025 11:59 PM CDT Hospital Encounter Department of Radiology, [facility] in [place], [place] [address] [place] [phone] Cheyenne Cardona M.D. Seizure Post Traumatic Non Epileptic (HCC) Discharge Disposition: Home or Self Care 02/08/2025 1:00 PM CDT Comprehensive Visit Department of Neurology in [place], [place] [address] [place] [address] Cheyenne Cardona M.D. Seizure Post Traumatic Non Epileptic (HCC) (Primary Dx) 01/16/2025 Refill Department of Family Medicine, [facility], in [address] [phone] Mahsa Gipson M.D. Med Refill 01/12/2025 Refill Department of Family Medicine, [facility], in [address] [phone] Marietta Sanchez APRN, C.N.P. Med Refill 12/28/2024 2:00 PM CDT Office Visit Department of Cardiovascular Medicine in [address] [phone] Hasmukh Diaz M.D. Anomaly Heart Congenital (HCC) (Primary Dx); Anomaly Pulmonary Venous Partial Congenital (HCC); Dyspnea Multifactorial; Hypotension Orthostatic; Syncope; Patent Foramen Ovale (HCC); Cirrhosis Alcoholic (HCC) 12/28/2024 11:03 AM CDT - 12/28/2024 11:59 PM CDT Hospital Encounter Department of Radiology, [facility], in [place], [place] [address] [place] [phone] Hasmukh Diaz M.D. Anomaly Heart Congenital (HCC); Anomaly Pulmonary Venous Partial Congenital (HCC); Dyspnea Multifactorial; Hypotension Orthostatic; Syncope; Patent Foramen Ovale (HCC); Cirrhosis Alcoholic (HCC) Discharge Disposition: Home or Self Care 12/28/2024 9:37 AM CDT - 12/28/2024 11:02 AM CDT Hospital Encounter Department of Cardiovascular Diseases in [place], [place] [address] [place] [phone] Hasmukh Diaz M.D. Olivia Wright R.D.C.S., ACS Anomaly Heart Congenital (HCC); Anomaly Pulmonary Venous Partial Congenital (HCC); Dyspnea Multifactorial; Hypotension Orthostatic; Syncope; Patent Foramen Ovale (HCC); Cirrhosis Alcoholic (HCC) Discharge Disposition: Home or Self Care 12/28/2024 8:35 AM CDT - 12/28/2024 9:36 AM CDT Hospital Encounter Department of Laboratory Medicine and Pathology, [facility], in [place], [place] [address] [place] [address] Hasmukh Diaz M.D. Anomaly Heart Congenital (HCC); Anomaly Pulmonary Venous Partial Congenital (HCC); Dyspnea Multifactorial; Hypotension Orthostatic; Syncope; Patent Foramen Ovale (HCC); Cirrhosis Alcoholic (HCC) Discharge Disposition: Home or Self Care from Last 3 Months Immunizations Immunization Administration Dates Next Due HepA / HepB 10/21/2022,10/22/2021,08/27/2021 Influenza, Injectable, Mdck, Preservative Free, Quadrivalent 08/28/2024,05/24/2022,06/22/2019 Influenza, Seasonal, Injectable 05/18/20,07/06/2016,06/18/2014,2012,06/13/2012,05/28/2011,07/07/2010 Influenza, Unspecified 06/14/2017 PCV20 02/16/2022 PPSV23 05/28/2011 SARS-COV-2 (COVID-19) - MODE RNA (12 YEARS AND OLDER) Fall Seasonal 08/28/2024 Td Preservative Free (TENIVA C, DECAVAC) 02/22/2020,01/16/2010 Tuberculin Skin Test, Unspecified 02/23/2011, influenza trivalent vaccine (6 months and older)(PF) 06/14/2017 influenza vaccine QV(FLUBLOK ) (18 years or older) (PF) 10/04/2020 influenza vaccine quad (FLUZONE/FLUARIX) (6 months and older)(PF) 06/27/2023,05/24/2020,10/10/2018,2016 Social History Tobacco Use Types Packs/Day Years Used Date Smoking Tobacco: Every Day Cigarettes 0.5 40.7 Started: 08/09/1985 Passive Smoke Exposure: Never Smokeless Tobacco: Never Tobacco Cessation:Ready to Q uit: Not Asked; Counseling Given: Not Answered Alcohol Use Standard Drinks/Week Comments Not Currently 0 (1 standard drink = 0.6 oz pur e alcohol) [facility] Utilities Answer Date Recorded In the past 12 months has th e [employer], gas, oil, or water company threatened to [...] Sex Assigned at Female 09/14/2023 4:[address] SUPERVISOR Legal Sex Female 11:[address] SUPERVISOR Gender Identity Female 09/14/2023 4:26 [address] SUPERVISOR Sexual Orientation Straight 09/14/2023 4: [address] SUPERVISOR Last Filed Vital Signs Vital Sign Reading Time Taken Comments Blood Pressure 127/89 02/08/2025 1:17 PM CDT Pulse 79 02/08/2025 1:17 PM CDT Temperature 36.7 C (98.1 F) 11/27/2024 11:04 AM CDT Respiratory Rate 22 11/24/2024 10:08 AM CDT Oxygen Saturation 97% 12/28/2024 1:46 PM CDT Inhaled Oxygen Concentration - - Weight 53 kg (116 lb 13.5 oz) 02/08/2025 1:17 PM CDT Height 168 cm (5' 6.14) 02/08/2025 1:17 PM CDT Body Mass Index 18.78 02/08/2025 1:17 PM CDT Plan of Treatment Health Maintenance Due Date Last Done Comments CT Colonography 1969 Cologuard 1969 FIT 1969 Hepatitis C Screening 1969 Zoster Vaccines (1 of 2) 2019 Depression Monitoring (PHQ-9 for quality tracking) 08/09/2024 Abdominal Ultrasound 12/17/2024 06/19/2024, 12/06/2023, 12/07/2022, Additional history exists Depression Monitoring (PHQ-9) 03/26/2025 11/24/2024 Influenza Vaccine (#1) 2025 , 08/28/2024, 06/27/2023, Additional history exists Lung Cancer Screening 06/19/2025 06/19/2024 , 10/13/2023, 10/13/2023, Additional history exists Mammogram 11/20/2025 11/20/2024, 0508/2022, 12/07/2022, Additional history exists Thyroid Stimulating Hormone (TSH) test for thyroid function 12/28/2025 12/28/2024, 06/19/2024, 02/09/2024, Additional history exists Office Visit for Blood Pressure Check / Re-check 02/08/2026 02/08/2025 Cervical/Vaginal Cancer Screening 03/15/2026 03/15/2023, 03/14/2018, 01/06/2000 Fasting Glucose for Diabetes Screening 12/29/2027 12/28/2024, 12/05/2024, 06/19/2024, Additional history exists Colonoscopy 03/02/2029 03/02/2019 Colorectal Cancer Screening 03/02/2029 Lipid (Cholesterol) Screening 12/28/2029 12/28/2024, 02/28/2024, 10/13/2023, Additional history exists Hepatitis B Screening Discontinued 11/20/2020 Pneumococcal vaccine (50+ years) Completed 02/16/2022, 05/28/2011 Hepatitis A Vaccines Completed 10/21/2022, 10/22/2021, 08/27/2021 Hepatitis B Vaccines Completed 10/21/2022, 10/22/2021, 08/27/2021 COVID-19 Vaccine Completed 08/28/2024, , 05/24/2022, Additional history exists Visit: Medicare Annual Wellness Discontinued 11/24/2024 IPV Vaccines Aged Out No longer eligi ble based on patient's age to complete this topic Procedures Procedure Name Priority Date/Time Associated Diagnosis Comments MR BRAIN WITHOUT AND WITH IV CONTRAST RAD - Routine (most inpatients and all outpatients) 02/15/2025 1:35 PM CDT Seizure Post Traumatic Non Epileptic (HCC) DX CHEST AP OR PA AND LATERAL 2 VIEWS RAD - Routine (most inpatients and all outpatients) 12/28/2024 11:10 AM CDT Anomaly Heart Congenital (HCC) Anomaly Pulmonary Venous Partial Congenital (HCC) Dyspnea Multifactorial Hypotension Orthostatic Syncope Patent Foramen Ovale (HCC) Cirrhosis Alcoholic (HCC) (TTE) CONGENITAL 2D WITH COLOR AND DOPPLER Routine 12/28/2024 10:44 AM CDT Anomaly Heart Congenital (HCC) Anomaly Pulmonary Venous Partial Congenital (HCC) Dyspnea Multifactorial Hypotension Orthostatic Syncope Patent Foramen Ovale (HCC) Cirrhosis Alcoholic (HCC) ECG Routine 12/28/2024 9:29 AM CDT Anomaly Heart Congenital (HCC) Anomaly Pulmonary Venous Partial Congenital (HCC) Dyspnea Multifactorial Hypotension Orthostatic Syncope Patent Foramen Ovale (HCC) Cirrhosis Alcoholic (HCC) THYROID FUNCTION CASCADE, S Routine 12/28/2024 8:48 AM CDT Anomaly Heart Congenital (HCC) Anomaly Pulmonary Venous Partial Congenital (HCC) Dyspnea Multifactorial Hypotension Orthostatic Syncope Patent Foramen Ovale (HCC) Cirrhosis Alcoholic (HCC) NT-PRO B-TYPE NATRIURETIC PEPTIDE (BNP), S Routine 12/28/2024 8:48 AM CDT Anomaly Heart Congenital (HCC) Anomaly Pulmonary Venous Partial Congenital (HCC) Dyspnea Multifactorial Hypotension Orthostatic Syncope Patent Foramen Ovale (HCC) Cirrhosis Alcoholic (HCC) LIPID PANEL, S Routine 12/28/2024 8:48 AM CDT Anomaly Heart Congenital (HCC) Anomaly Pulmonary Venous Partial Congenital (HCC) Dyspnea Multifactorial Hypotension Orthostatic Syncope Patent Foramen Ovale (HCC) Cirrhosis Alcoholic (HCC) COMPREHENSIVE METABOLIC PANEL, S/P Routine 12/28/2024 8:48 AM CDT Anomaly Heart Congenital (HCC) Anomaly Pulmonary Venous Partial Congenital (HCC) Dyspnea Multifactorial Hypotension Orthostatic Syncope Patent Foramen Ovale (HCC) Cirrhosis Alcoholic (HCC) CBC WITHOUT DIFFERENTIAL, B Routine 12/28/2024 8:48 AM CDT Anomaly Heart Congenital (HCC) Anomaly Pulmonary Venous Partial Congenital (HCC) Dyspnea Multifactorial Hypotension Orthostatic Syncope Patent Foramen Ovale (HCC) Cirrhosis Alcoholic (HCC) BI BREAST SCREENING BILATERAL WITH TOMOSYNTHESIS RAD - Routine (most inpatients and all outpatients) 11/20/2024 10:15 AM CDT Screening Mammogram Breast Cancer US LIVER DOPPLER RAD - Semiurgent (Fast; most ED patients; some inpatients) 06/19/2024 8:[address] CT CHEST ANGIOGRAM ACUTE CHEST PAIN WITH IV CONTRAST (ED ONLY) RAD - Semiurgent (Fast; most ED patients; some inpatients) 06/19/2024 5:11 [address] SUPERVISOR from Last 3 Months or Most Recently Relevant to Health Maintenance Results * MR Brain without and with IV Contrast (02/15/2025 1:35 PM CDT) Anatomical Region Laterality Modality Head, Brain, Neuroradiology RST [facility], Neuroradiology ARZ [facility], Neuroradiology FLA LOS N/A Magnetic Resonance Impressions [...] sinus disease. Procedure Note Navarro Cuenca M.B.B.S., MMED. - 02/15/2025 EXAM: MR BRAIN WITHOUT AND [...] heterotopia, hippocampalsclerosis or cortical dysplasia. us Cheyenne NUNN MRI PROCEDURES Final Res ult * DX Chest AP or PA and Lateral 2 Views (12/28/2024 11:10 AM CDT) Anatomical Region Laterality Modality Chest, Thoracic RST LOS, Tho racic ARZ LOS, Thoracic FLA LOS N/A Digital Radiography Impressions 12/28/2024 11:58 AM CDT No significant change since 10/13/2023. Prominence of the right pulmonary vasculature at the hilum. Stable wedging of a lower thoracic vertebral body. Left nipple shadow. Chest otherwise negative. Narrative 12/28/2024 11:58 AM CDT EXAM: DX CHEST AP OR PA AND LATERAL 2 VIEWS Procedure Note Adonay Rico M.D. - 12/28/2024 EXAM: DX CHEST AP OR PA AND LATERAL 2 VIEWS IMPRESSION: No significant change since 10/13/2023. Prominence of the right pulmonaryvasculature at the hilum. Stable wedging of a lower thoracic vertebralbody. Left nipple shadow. Chest otherwise negative. us Hasmukh Diaz M.D. IMG DIAGNOSTIC IMAGING PROCED URES Final Result * (TTE) CONGENITAL 2D WITH COLOR AND DOPPLER (12/28/2024 10:44 AM CDT) Ejection Fraction 60 MC CV EIMS Sinus of Valsalva 31 MC CV EIMS Mid-Ascending Aorta 29 MC CV EIMS LV Mass Index 61 MC CV EIMS LV End-Diastolic Diameter 41 MC CV EIMS LV End-Systolic Diameter 26 MC CV EIMS LV End-Diastolic Volume 99 MC CV EIMS LV End-Systolic Volume 27 MC CV EIMS MV E Velocity 0.5 MC CV EIMS MV A Velocity 0.7 MC CV EIMS MV E/A 0.71 MC CV EIMS MV e' Velocity Medial 0.09 MC CV EIMS MV e' Velocity Lateral 0.07 MC CV EIMS MV E/e' Medial 5.6 MC CV EIMS MV E/e' Lateral 7.1 MC CV EIMS Left ventricular stroke volume index 45 MC CV EIMS Cardiac Output 5.8 MC CV EIMS Cardiac Index 3.67 MC CV EIMS LV Interventricular Septal Wall Thickness 6 MC CV EIMS LV Posterior Wall Thickness 10 MC CV EIMS RV 4-Chamber Basal Diameter 46 MC CV EIMS RV 4-Chamber Mid Diameter 50 MC CV EIMS RV 4-Chamber Length 78 MC CV EIMS Tricuspid Annular S 0.19 MC CV EIMS TR Vmax 2.22 MC CV EIMS Estimated RA Pressure (Echo RAP) 5 MC CV EIMS RV Systolic Pressure (with Echo RAP) 25 MC CV EIMS AV mean gradient 6 MC CV EIMS Aortic valve area 2.65 MC CV EIMS LA Volume Index 25 MC CV EIMS Aortic Valve Systolic Peak Velocity 1.5 MC CV EIMS Anatomical Region Laterality Modality Other 12/28/2024 9:37 AM CDT Impressions 12/28/2024 10:56 AM CDT LEFT VENTRICLE:Normal left ventricular chamber size. Calculated 2-D linear left ventricular ejection fraction 60%. Normal left ventricular wall thickness. No regional wall motion abnormalities. Normal left ventricular filling pressure. Left ventricular stroke volume index 45 ml/m2. Left ventricular cardiac index 3.67 l/min/m2. RIGHT VENTRICLE:Severely enlarged right ventricular chamber size. Normal right ventricular systolic function. Estimated right ventricular systolic pressure 25 mmHg (right atrial pressure of 5 mmHg). Averaged right ventricular free wall longitudinal peak systolic strain, vendor calculated, is -33% (normal </= -25%). ATRIA:Moderate-severely enlarged right atrial size. Normal left atrial size. Left atrial volume index 25 ml/m2. CARDIAC VALVES:Normal aortic valve. No aortic valve regurgitation. Normal mitral valve. Trivial mitral valve regurgitation. Normal pulmonary valve. Normal pulmonary valve systolic velocities. Trivial pulmonary valve regurgitation. Normal tricuspid valve. Mild tricuspid valve regurgitation. OTHER ECHO FINDINGS:Normal inferior vena cava size with normal inspiratory collapse (>50%). Normal mid ascending aorta diameter of 29 mm. Abdominal aorta incompletely visualized. Normal abdominal aorta Doppler flow pattern. Redundant atrial septum. Possible patent foramen ovale. No pericardial effusion. No intracardiac mass or thrombus, but the left atrial appendage cannot be visualized adequately with transthoracic echo to exclude thrombus in this location. For the complete report, see the Order-Level Documents. Narrative 12/28/2024 10:56 AM CDT For the complete report, see the Order-Level Documents. Hemodynamics Heart Rate: 82 BPM Blood Pressure: 105 / 69 mmHg ECG: Sinus rhythm Final Impressions 1. 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 Unable to visualize by TTE. Right lower vein and left pulmonary veins appear to drain normally to the left atrium. 2. Severely enlarged right ventricular chamber size with normal systolic function (RV FAC 50%). 3. Averaged right ventricular free wall longitudinal peak systolic strain, vendor calculated, is -33% (normal </= -25%). 4. Estimated right ventricular systolic pressure 25 mmHg (right atrial pressure of 5 mmHg). 5. Moderate-severely enlarged right atrial size. 6. Mild tricuspid valve regurgitation. 7. Normal left ventricular chamber size. Calculated ejection fraction 60%. 8. Normal left ventricular filling pressure. 9. Left ventricular cardiac index 3.67 l/min/m2. 10. Redundant atrial septum with a possible patent foramen ovale. 11. Compared to the report of 10/13/2023 no significant change has occurred. Side by side comparison of images performed. Procedure Note Nitish Wick M.B.B.S., M.P.H. - 12/28/2024 For the complete report, see the Order-Level Documents. Hemodynamics Heart Rate: 82 BPM Blood Pressure: 105 / 69 mmHg ECG: Sinus rhythm Final Impressions 1. Partial anomalous pulmonary venous return (right upper and middleveins) per previous CT exam. Unable to visualize by TTE. Right lower veinand left pulmonary veins appear to drain normally to the left atrium. 2. Severely enlarged right ventricular chamber size with normal systolicfunction (RV FAC 50%). 3. Averaged right ventricular free wall longitudinal peak systolic strain,vendor calculated, is -33% (normal </= -25%). 4. Estimated right ventricular systolic pressure 25 mmHg (right atrialpressure of 5 mmHg). 5. Moderate-severely enlarged right atrial size. 6. Mild tricuspid valve regurgitation. 7. Normal left ventricular chamber size. Calculated ejection [id number]%. 8. Normal left ventricular filling pressure. 9. Left ventricular cardiac index 3.67 l/min/m2. 10. Redundant atrial septum with a possible patent foramen ovale. 11. Compared to the report of 10/13/2023 no significant change hasoccurred. Side by side comparison of images performed. Findings LEFT VENTRICLE:Normal left ventricular chamber size. Calculated 2-D linearleft ventricular ejection fraction 60%. Normal left ventricular wallthickness. No regional wall motion abnormalities. Normal left ventricularfilling pressure. Left ventricular stroke volume index 45 ml/m2. Leftventricular cardiac index 3.67 l/min/m2. RIGHT VENTRICLE:Severely enlarged right ventricular chamber size. Normalright ventricular systolic function. Estimated right ventricular systolicpressure 25 mmHg (right atrial pressure of 5 mmHg). Averaged rightventricular free wall longitudinal peak systolic strain, vendorcalculated, is -33% (normal </= -25%). ATRIA:Moderate-severely enlarged right atrial size. Normal left atrialsize. Left atrial volume index 25 ml/m2. CARDIAC VALVES:Normal aortic valve. No aortic valve regurgitation. Normalmitral valve. Trivial mitral valve regurgitation. Normal pulmonary valve.Normal pulmonary valve systolic velocities. Trivial pulmonary valveregurgitation. Normal tricuspid valve. Mild tricuspid valveregurgitation. OTHER ECHO FINDINGS:Normal inferior vena cava size with normal inspiratorycollapse (>50%). Normal mid ascending aorta diameter of 29 mm. Abdominalaorta incompletely visualized. Normal abdominal aorta Doppler flowpattern. Redundant atrial septum. Possible patent foramen ovale. Nopericardial effusion. No intracardiac mass or thrombus, but the leftatrial appendage cannot be visualized adequately with transthoracic echoto exclude thrombus in this location. For the complete report, see the Order-Level Documents. us Hasmukh Diaz M.D. CV ECHO PROCEDURES Final Resu lt * ECG 12 Lead (12/28/2024 9:29 AM CDT) Ventricular Rate ECG/Min 83 BPM MUSE [place] Interval 188 ms MUSE QRSD Interval 94 ms MUSE QT Interval 372 ms MUSE QTC Interval 437 ms MUSE P [place] 57 degrees MUSE R [place] -23 degrees MUSE T Wave [place] 45 degrees MUSE 12/28/2024 9:29 AM CDT 12/28/2024 9:43 AM CDT Impressions MUSE - 12/28/2024 9:43 AM CDT Normal sinus rhythm Incomplete right bundle branch block Nonspecific T wave abnormality When compared with ECG of 19-Jun-2024 15:12, Incomplete right bundle branch block is now evident T wave inversion less evident in Anterior leads Reviewed by CINTIA Schmitt Narrative Procedure Note Juan Pablo Cano Jr., M.D. - 12/28/2024 IMPRESSION: Normal sinus rhythm Incomplete right bundle branch block Nonspecific T wave abnormality When compared with ECG of 19-Jun-2024 15:12, Incomplete right bundle branch block is now evident T wave inversion less evident in Anterior leads Reviewed by CINTIA Schmitt us Hasmukh Diaz M.D. ECG ORDERABLES Final Result MUSE NA * Lipid Panel (12/28/2024 8:48 AM CDT) Triglycerides 40 mg/dL 12/28/2024 10:46 AM CDT DTL Comment: ----REFERENCE VALUE---- Normal: <150 mg/dL Borderline High: 150-199 mg/dL High: 200-499 mg/dL Very High: > or =500 mg/dL Cholesterol, Total 92 mg/dL 2024 10:46 AM CDT DTL Comment: ----REFERENCE VALUE---- Desirable: < 200 mg/dL Borderline High: 200 - 239 mg/dL High: > or = 240 mg/dL Cholesterol, LDL, Calculated 18 mg/dL 12/28/2024 10:46 AM CDT DTL Comment: ----REFERENCE VALUE---- Desirable: <100 mg/dL Above Desirable: 100-129 mg/dL Borderline High: 130-159 mg/dL High: 160-189 mg/dL Very High: >=190 mg/dL ----ADDITIONAL INFORMATION---- LDL cholesterol calculated using the Mariee/NIH equation. Cholesterol, HDL, S 63 >=50 mg/dL 12/28/2024 10:46 AM CDT DTL Cholesterol, Non-HDL, Calculated 29 mg/dL 12/28/2024 10:46 AM CDT DTL Comment: ----REFERENCE VALUE---- Desirable: <130 mg/dL Above Desirable: 130-159 mg/dL Borderline High: 160-189 mg/dL High: 190-219 mg/dL Very High: > or =220 mg/dL Fasting (8 HR or more) No 12/28/2024 8:49 AM CDT DTL Blood (Blood, Venous) 12/28/2024 8:48 AM CDT 12/28/2024 9:29 AM CDT Hasmukh Diaz M.D. LAB BLOOD ADD-ON Final Result Performing Organization Address City/[facility] Co de Phone Number [facility] [address] [place] [address] * Thyroid Function [place] (12/28/2024 8:48 AM CDT) [facility] TSH, Sensitive 1.0 0.3 - 4.2 mIU/L 12/28/2024 10:46 AM CDT DT Blood (Blood, Venous) 12/28/2024 8:48 AM CDT 12/28/2024 9:29 AM CDT Hasmukh Diaz M.D. LAB BLOOD ADD-ON Final Result Performing Organization Address City/[facility] Co de Phone Number [facility] [address] [place] [address] * NT-Pro B-Type Natriuretic Peptide (BNP) (12/28/2024 8:48 AM CDT) [facility] NT-Pro BNP <36 <=226 pg/mL 12/28/2024 10:46 AM CDT DT Comment: NT-proBNP values less than 300 pg/mL have a 99% negative predictive value for excluding acute congestive heart failure. A cutoff of 1200 pg/mL for patients with an eGFR<60 yields a diagnostic sensitivity and specificity of 89% and 72% for acute congestive heart failure. A diagnostic NT-proBNP cutoff of 900 pg/mL has been suggested in adults 50-75 years of age in the absence of renal failure. Blood (Blood, Venous) 12/28/2024 8:48 AM CDT 12/28/2024 9:29 AM CDT Hasmukh Diaz M.D. LAB BLOOD ADD-ON Final Result Performing Organization Address [place]/[facility] Co de Phone Number [facility] [address] [place] [address], [facility] [address] [place] [address] * (ABNORMAL) CBC without Differential (12/28/2024 8:48 AM CDT) Hemoglobin 11.2(L) 11.6 - 15.0 g/dL 12/28/2024 9:51 AM CDT DTL Hematocrit 36.6 35.5 - 44.9 % 12/28/2024 9:51 AM CDT DTL Erythrocytes 4.80 3.92 - 5.13 x10(12)/L 12/28/2024 9:51 AM CDT DTL MCV 76.3(L) 78.2 - 97.9 fL 12/28/2024 9:51 AM CDT DTL RBC Distrib Width 18.0(H) 12.2 - 16.1 % 12/28/2024 9:51 AM CDT DTL Platelet Count 95(L) 157 - 371 x10(9)/L 12/28/2024 10:23 AM CDT DTL Leukocytes 3.7 3.4 - 9.6 x10(9)/L 12/28/2024 10:23 AM CDT DTL Blood (Blood, Venous) 12/28/2024 8:48 AM CDT 12/28/2024 9:15 AM CDT Hasmukh Diaz M.D. LAB BLOOD ADD-ON Final Result Performing Organization Address [place]/[facility]/ZIP Co de Phone Number [facility] [address] [place] [address], [facility] [address] [place] [address] * (ABNORMAL) Comprehensive Metabolic Panel (12/28/2024 8:48 AM CDT) Potassium, S 3.5(L) 3.6 - 5.2 mmol/L 12/28/2024 10:46 AM CDT DTL Sodium, S 141 135 - 145 mmol/L 12/28/2024 10:55 AM CDT DTL Chloride, S 107 98 - 107 mmol/L 12/28/2024 10:46 AM CDT DTL Bicarbonate, S 24 22 - 29 mmol/L 12/28/2024 10:46 AM CDT DTL Anion Gap 10 7 - 15 12/28/2024 10:55 AM CDT DTL BUN (Blood Urea Nitrogen), S 10 6 - 21 mg/dL 12/28/2024 10:46 AM CDT DTL Creatinine 0.90 0.59 - 1.04 mg/dL 12/28/2024 10:46 AM CDT DTL Estimated GFR (eGFR) 75 >=60 mL/min/BS A 12/28/2024 10:46 AM CDT DTL Comment: Estimated GFR calculated using the 2020 CKD_EPI creatinine equation. Calcium, Total, S 9.5 8.6 - 10.0 mg/dL 12/28/2024 10:46 AM CDT DTL Glucose, S 70 70 - 140 mg/dL 12/28/2024 10:46 AM CDT DTL Protein, Total, S 6.4 6.3 - 7.9 g/dL 12/28/2024 10:46 AM CDT DTL Albumin, S 3.9 3.5 - 5.0 g/dL 12/28/2024 10:46 AM CDT DTL Aspartate Aminotransferase (AST), S 39 8 - 43 U/L 12/28/2024 10:46 AM CDT DTL Alkaline Phosphatase, S 53 35 - 104 U/L 12/28/2024 10:46 AM CDT DTL Alanine Aminotransferase (ALT), S 27 7 - 45 U/L 12/28/2024 10:46 AM CDT DTL Bilirubin, Total, S 0.7 0.0 - 1.2 mg/dL 12/28/2024 10:46 AM CDT DTL Blood (Blood, Venous) 12/28/2024 8:48 AM CDT 12/28/2024 9:29 AM CDT us Hasmukh Diaz M.D. LAB BLOOD ADD-ON Final Result [facility] [address] [place] [address], [facility] DTL [facility] [address] [place] [address] * BI Breast Screening Bilateral with Tomosynthesis (11/20/2024 10:15 AM CDT) Anatomical Region Laterality Modality Breast, Breast Imaging RST L OS, Breast Imaging ARZ LOS, Breast Imaging FLA LOS Bilateral Mammography Impressions 11/29/2024 2:03 PM CDT Negative. RECOMMENDATION: Annual Screening Mammogram ASSESSMENT: BI-RADS: 1: Negative. Narrative 11/29/2024 2:03 PM CDT EXAM: BI BREAST SCREENING BILATERAL WITH TOMOSYNTHESIS Current study was evaluated with a Computer Aided Detection (CAD) system. INDICATION: Screening mammogram. COMPARISON: Prior exam(s) were available and reviewed for comparison. DENSITY: c. The breast(s) are heterogeneously dense, which may obscure small masses. FINDINGS: No mammographic findings of malignancy. Procedure Note Wallace Gibbons M.D. - 11/29/2024 EXAM: BI BREAST SCREENING BILATERAL WITH TOMOSYNTHESIS Current study was evaluated with a Computer Aided Detection (CAD) system. INDICATION: Screening mammogram. COMPARISON: Prior exam(s) were available and reviewed for comparison. DENSITY: c. The breast(s) are heterogeneously dense, which may obscuresmall masses. FINDINGS: No mammographic findings of malignancy. IMPRESSION: Negative. RECOMMENDATION: Annual Screening Mammogram ASSESSMENT: BI-RADS: 1: Negative. us Mahsa Gipson M.D. IMLaura BI PROCEDURES Final Res ult * US Liver Doppler (06/19/2024 8:[address] SUPERVISOR) Anatomical Region Laterality Modality Abdomen, Ultrasound RST LOS, Ultrasound ARZ LOS, Ultrasound FLA LOS, Procedural, Vascular Interventional NWWI LOS N/A Ultr asound Impressions 06/20/2024 7:31 AM [address] [address] SUPERVISOR Patent portal vein. The finding on CT earlier today is favored to represent mixing artifact. Narrative 06/20/2024 7:31 AM [address] SUPERVISOR EXAM: US LIVER DOPPLER Exam performed with color and spectral Doppler analysis. COMPARISON: Same day cardiac CTA. FINDINGS: Doppler: Portal, splenic, and hepatic veins are patent with antegrade flow. Recanalized paraumbilical vein. The main hepatic artery is patent with antegrade flow. Procedure Note Olivia Gurrola M.D. - 06/20/2024 EXAM: US LIVER DOPPLER Exam performed with color and spectral Doppler analysis. COMPARISON: Same day cardiac CTA. FINDINGS: Doppler: Portal, splenic, and hepatic veins are patent with antegradeflow. Recanalized paraumbilical vein. The main hepatic artery is patentwith antegrade flow. IMPRESSION: Patent portal vein. The finding on CT earlier today is favored torepresent mixing artifact. us Robin Bustillo M.D. IMLaura US PROCEDURE S Final Result * CT Chest Angiogram Acute Chest Pain with IV Contrast (ED only) (06/19/2024 5:11 PM [address] [address] SUPERVISOR) Anatomical Region Laterality Modality Chest, Cardiovascular RST LO S, Thoracic ARZ LOS, Cardiovascular FLA LOS Computed Tomography, C omputed Tomography 06/19/2024 4:33 PM [address] [address] SUPERVISOR Impressions 06/19/2024 6:33 PM [address] [address] SUPERVISOR 1. 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 No convincing sinus venosus ASD. 2. Pulmonary artery and right-sided cardiac enlargement with findings suggestive of pulmonary hypertension. This could serve as a source of shortness of breath and hypoxia. 3. Patent foramen ovale. 4. No pulmonary embolism. Pulmonary artery enlargement likely secondary to the partial anomalous venous return. 5. No acute aortic pathology. Normal caliber thoracic aorta. 6. Nondiagnostic segments of the distal coronary arteries secondary to motion. No plaque or stenosis where assessable. CAD-RADS N. 7. Right lower lobe segmental endobronchial mucous plugging with mild patchy opacities distally which may be infectious/inflammatory related to aspiration or atelectasis. 8. Central hypoattenuation within the main portal vein, favored to be due to contrast bolus timing though could be seen with a nonocclusive portal vein thrombosis. Consider confirmation of portal vein patency with hepatic Doppler ultrasound versus standard portal venous phase CT abdomen pelvis. 9. Hepatic cirrhosis with sequelae of portal hypertension. This could be secondary to cardiac/congestive hepatopathy given the associated findings. Narrative 06/19/2024 6:33 PM [address] SUPERVISOR EXAM: CT CHEST ANGIOGRAM ACUTE CHEST PAIN WITH IV CONTRAST (ED ONLY) Including 3D image post-processing with or without AI assistance performed on an independent workstation. COMPARISON: CT chest 10/13/2023 CARDIOVASCULAR FINDINGS: PULMONARY ARTERY FINDINGS: No pulmonary emboli. The main pulmonary artery is dilated relative to the adjacent aortic arch measuring up to 29 mm, suggestive of underlying pulmonary hypertension. Additionally, the right main and left main pulmonary arteries are enlarged. 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 An additional right inferior pulmonary vein drains normally into the left atrium. THORACIC AORTIC FINDINGS: No thoracic aortic dissection, penetrating atherosclerotic ulcer, or intramural hematoma. Normal caliber thoracic aorta. No significant thoracic aortic atherosclerotic plaque. The visualized proximal aortic arch branch arteries are widely patent without stenosis. CORONARY FINDINGS: Portions of all the coronary arteries distally are nondiagnostic due to cardiac motion. No plaque or stenosis were seen. Origins: Normal origin and course of the coronary arteries. There is direct aortic origin of the conus branch off the right coronary cusp. Dominance: Right Left Main Coronary: Widely patent without detectable atherosclerotic plaque. Left Anterior Descending: Patent without detectable plaque or stenosis, including diagonal branches. Distal vessel nondiagnostic secondary to motion degradation. No plaque or stenosis where assessable. Left Circumflex: Patent without detectable plaque or stenosis, including obtuse marginal branches. Distal vessel nondiagnostic secondary to motion degradation. No plaque or stenosis where assessable. Right Coronary: Patent without detectable plaque or stenosis. Patent posterior descending and posterolateral branches. Nondiagnostic segments due to motion. No plaque or stenosis where assessable. OTHER CARDIAC FINDINGS: Moderate enlargement of the right atrium and right ventricle. Normal global left ventricular systolic function by visual estimate. No regional wall motion abnormalities. No resting first-pass myocardial perfusion defects. No intra-cardiac mass or thrombus. Normal-appearing pericardium. ADDITIONAL FINDINGS: Segmental right lower lobe endobronchial mucous plugging. Patchy opacities distal to the area of endobronchial mucous plug in the right lower lobe may represent a small area of infection/inflammation versus atelectasis. Hepatic cirrhosis with sequelae of portal hypertension. This includes markedly dilated portal veins with recanalization of the umbilical vein and splenomegaly measuring up to 13.3 cm axially. There is central hypoattenuation within the main portal vein. This is likely due to mixing artifact due to phase of contrast bolus, however an underlying portal vein thrombosis could have this appearance. Subcentimeter splenic hypodensity, presumably benign. Small esophageal hiatal hernia. Unchanged old compression deformity of the T12 vertebral body. CAD-RADS CATEGORIES: (based on most severe single lesion; applies to vessels >1.5 mm in diameter) 0: 0%, No stenosis 1: 1-24%, Minimal stenosis (or + remodeling without luminal stenosis) 2: 25-49%, Mild stenosis 3: 50-69%, Moderate stenosis 4A: 70-99%, Severe stenosis 4B: LM>49% or 3-vessel severe disease 5: 100%, [place] N: Non-diagnostic study Plaque [place]: P1: Mild (CACS1-100/SIS1-2/1-2 vessels mild plaque) P2: Moderate ([id number]/SIS3-4/1-2 vessels moderate; 3 vessels mild plaque) P3: Severe ([id number]/SIS5-7/3 vessels moderate; 1 vessel severe plaque) P4: Extensive (CACS>999/SIS>7/2-3 vessels severe plaque) Modifiers: N: Non-diagnostic segment(s) HRP: High-Risk Plaque* S: Stent G: Graft (CAD-Rads applies to vessel segments distal to graft anastomosis) E: Exceptions *High-Risk Plaque = at least 2 of the following: + remodeling/<30 HU/spotty calcs/napkin-ring sign Linden Wyman M.D. IMLaura CT PROCEDURES Final Resul t from Last 3 Months or Most Recently Relevant to Health Maintenance Insurance MEDICARE [facility] Care Teams Financial Accounting Analyst Relationship Specialty Start Date End Date Elsewhere, Pcp PCP - General Internal Medicine 12/28/24
--- OUTSIDE RECORDS SUMMARY | 2025-03-24 20:30 | XMS_ITS | Encounter Summary ---
Author Organization [facility] Address [address] [place] [address] Care Team Providers Care Lawn Technician Name Role Phone Rio Jaquez MD Primary Care Provider Barry Kilpatrick MD Unavailable Michelle Henderson RN Unavailable [phone] Rio Jaquez MD Unavailable +[phone] Jemima Jaramillo MD Unavailable Unavai Kelley Bautista RN Unavailable +[phone] Sydnee Saleem MD Unavailable +[phone] Karlene Moya MD Unavailable +[phone] Wilbert Quintero OD Unavailable +[phone] Rod GauthierM Unavailable +[phone] Nallely Hogue RN Unavailable Unavailable Larisa Vargas RN Unavailable Unavailable Jan Mahmood MD Unavailable +[phone] Brandt Quintana MD Unavailable +[phone] Jan Mahmood MD Unavailable +[phone] Rio Jaquez MD Unavailable +[phone] Dom Eason MD Unavailable +[phone] Jayla Plaza RN Unavailable +[phone] Sydnee [...] Unavailable +[phone] Dom Eason MD Unavailable +[phone] Wagner Oliver MD Unavailable +[phone] Laura Epperson NP Unavailable +[phone] Thom Taveras MD Unavailable +[phone] Joesph Crowe MD Unavailable +[phone] Joesph Crowe MD Unavailable + [phone] Adonay Haq MD Unavailable +[phone] Denilson Srinivasan MD Unavailable + [phone] Jason Alvares MD Unavailable Ruth Riddle DPM, Podiatry /Foot and Ankle Surgery Unavailable Omar Carmona MD Primary Care Provider [phone] Jignesh Mathias MD Unavailable Adonay Haq MD Unavailable Omar Carmona MD Unavailable +[phone] Jason Alvares MD Unavailable Jignesh Mathias MD Unavailable Ayad Lopez PhD LP Unavailable +[phone] Gavi Nieto PA-C Unavailable +[phone] Encounter Details Date Type Department Care Team (Late st Contact Info) Description 02/04/2022 [facility] [place] [facility] Medical Advice [facility] [address] 4th [place] [address] Rio Jaquez MD [address] [place] [address] 4 [place] [address] Social History Tobacco Use Types [...] than three times a week 08/27/2021 Attends Buddhist Services Not on file 08/27 Do you [...] Answer Date Recorded PHQ-2 Score 2 08/27/2021 [facility]at [facility] - [...] place to sleep or slept in a fpc (including now)? No 08/27/2021 Comments No Sex and Gender Information Value Date Recorded Sex Assigned at Female 09/12/2020 12:05 PM SENIOR MARKETING ENGINEER Legal Sex Female 3:26 AM SENIOR MARKETING ENGINEER Gender Identity Female 09/12/2020 12:05 PM SENIOR MARKETING ENGINEER Sexual Orientation Straight 12/19/2021 10 :44 [...] suspected to have Coronavirus/COVID-19? Unable to assess 01/21/2022 7:47 AM CDT documented as of this encounter Plan of Treatment Upcoming Encounters Date Type Department Care Team (Late st Contact Info) Description 03/26/2025 11:00 AM CDT Therapy Visit [address] [phone] Jason Alvares MD [address] [place] [address] 295 [place], [place] 148245 Chaya Castillo OTR FV [address] [address] 03/29/2025 10:30 AM CDT Therapy Visit [facility] Specialty [place] [address] [facility] [address] [place] [phone] [place] [address] [address] 300 [place], [place] [phone] 04/02/2025 11:00 AM CDT Therapy Visit [facility] [address] [facility] [place] [phone] Jason Alvares MD [address] [place] [address] Chaya Castillo, OTR [facility] 150 [place] [address] 04/11/2025 12:30 PM CDT Office Visit [facility] [address] 4th [place] [phone] Omar Carmona MD [address] [place] [address] 274915 04/12/2025 2:15 PM CDT Therapy Visit [facility] 150 [place] [phone] Jason Alvares MD [address] [place] [address] Chaya Castillo, OTR [facility] 150 [place] [address] 04/16/2025 11:00 AM CDT Therapy Visit [facility] 150 [place] [phone] Jason Alvares MD [address] [place] [address] Chaya Castillo, OTR [facility] 150 [place] [address] 04/23/2025 11:00 AM CDT Therapy Visit [facility] 150 [place] [phone] Jason Alvares MD [address] [place] [address] Chaya Castillo OTR [facility] 150 [place] [address] 04/30/2025 11:00 AM CDT Therapy Visit [facility] 150 [place] [phone] Jason Alvares MD [address] [place] [address] Chaya Castillo OTR [facility] 150 [place] [address] 05/15/2025 12:30 PM CDT Office Visit [address] [phone] Marquise Hanley MD [address] [place] [address] 091815 06/08/2025 9:15 AM CDT Office Visit [facility] Hepatology Clinic [address] [phone] Jignesh Mathias MD [address] [place] [address] 925165 11/05/2025 1:45 PM CDT Office Visit [facility] Dermatology Clinic [address] 3rd [place] [phone] Gavi Nieto PA-C Dermatology [address] [place] [address] documented as of this encounter Goals Goal [...] Total Score: 5 08/27/19 22 9:25 AM SENIOR MARKETING ENGINEER documented as of this encounter Care Teams Lawn Technician Relationship Specialty Start Date End Date Rio Jaquez MD [address] [place] [address] PCP - General Family Practice 12/02/10 07/13/24 Omar Carmona MD [address] [place] [address] PCP - General Family Medicine 07/14/24 Barry Kilpatrick MD [address] [place] [address] [id number] [place] [address] Neurology 07/19/14 Michelle Henderson I, RN Nurse Coordinator Neurology 07/19/14 Rio Jaquez MD [address] [place] [address] Family Practice 10/15/14 Jemima Jaramillo MD window shade cutter and mounter 11/20/14 Kelley Chin, TANIA [facility] [address] [place] [address] Nurse Coordinator Cardiology 11/04/15 Sydnee Saleem MD [address] [place] [address] 508 [place] [address] Cardiology 11/04/15 Karlene Moya MD [address] [place] [address] 870545 Ophthalmology 06/24/17 Wilbert Quintero OD [address] [place] [address] 095575 Optometry 06/24/17 Rod Gauthier DPM [address] [place] [address] Senior Ux Designer Primary Podiatric Medicine 06/21/18 Nallely Hogue, RN Registered Nurse 02/20/19 11/23/22 Larisa Vargas, TANIA Specialty Copy Chief Cardiology 04/18/19 03/06/22 Jan Mahmood MD [address] [place] [address] Gastroenterology 11/05/20 Brandt Quintana MD [address] [place] [address] Resident 11/05/20 Jan Mahmood MD [address] [place] [address] Assigned Gastroenterology Provider 12/01/20 Rio Jaquez MD 909 [facility] 4 [place] [address] Assigned PCP 11/17/20 09/30/24 Dom Eason MD 717 [facility] 353 [place] [address] Internal Medicine 12/02/20 Jayla Plaza, RN Specialty Copy Chief Hepatology 01/09/21 02/13/24 Sydnee Saleem MD [address] [phone] Assigned Heart and Vascular Provider 02/02/21 07/24/22 Cristian Barragan MD 2945 [place] [address] Assigned Infectious Disease Provider 02/21/21 03/06/22 Jaimie Vernon, RN Specialty Copy Chief Cardiology 10/28/21 Ruth Riddle DPM, Podiatry/Foot and Ankle Surgery [address] [facility] 300 [place], [place] 634987 Assigned Musculoskeletal Provider 11/30/21 09/30/23 Jason Alvares MD 420 [facility] 295 [place], [place] 447015 Assigned Neuroscience Provider 01/03/22 05/15/22 Marquise Hanley MD [address] [place] [address] Endocrinology, Diabetes, and Metabolism 03/05/22 Vlad Ramey MD [address] [place] [address] Cardiovascular Disease 05/07/22 Joesph Crowe MD [address] [place] [address] Surgery 05/07/22 Luis Arrington MD [address] [place] [address] Assigned Neuroscience Provider 05/16/22 05/14/23 Michelle Padilla RN Specialty Copy Chief Cardiology 07/03/22 Vlad Ramey MD [address] [place] [address] Assigned Heart and Vascular Provider 07/25/22 05/28/23 Marquise Hanley MD [address] [place] [address] Assigned Endocrinology Provider 08/15/22 Dom Eason MD [address] [place] [address] Assigned Nephrology Provider 11/28/22 02/19/23 Wagner Oliver MD [address] [place] [address] Critical Care 12/15/22 Laura Epperson NP [address] [place] [address] 1932 [place] [address] Assigned Nephrology Provider 02/20/23 08/30/24 Thom Taveras MD [address] [place], [place] 9[address] [place] [address] Assigned Cancer Care Provider 02/06/23 08/20/23 Joesph Crowe MD [address] [place] [address] MD Surgery 03/17/23 Joesph Crowe MD [address] [place] [address] Assigned Surgical Provider 04/03/23 09/30/24 Adonay Haq MD [address] [place] [address] Internal Medicine 06/14/23OctoberDenilson MD [address] [facility] [address] [place] [address] Assigned Heart and Vascular Provider 05/29/23 11/28/24 Jason Alvares MD [address] [place] [address] 295 [place] [address] Assigned Neuroscience Provider 05/15/23 11/28/24 Ruth Riddle DPM, Podiatry/Foot and Ankle Surgery [address] 300 [place] [address] Assigned Musculoskeletal Provider 10/22/23 Jignesh Mathias MD [address] [place] [address] Gastroenterology 09/25/24 Adonay Haq MD [address] [place] [address] 506535 Assigned PCP 10/01/24 12/28/24 Omar Carmona MD [address] [place] [address] 526025 Assigned PCP 12/29/24 Jason Alvaers MD [address] [place] [address] 804145 Assigned Neuroscience Provider 12/29/24 Jignesh Mathias MD [address] [place] [address] 226845 Assigned Surgical Provider 12/29/24 Ayad Lopez, PhD LP [address] [place] [address] 636595 Assigned Behavioral Health Provider 02/28/25 Gavi Nieto PA-C [address] [place] [address] 692225 Physician Color Control Supervisor Dermatology 03/19/25 documented as of this encounter
--- OUTSIDE RECORDS SUMMARY | 2025-03-24 20:30 | XMS_ITS | Encounter Summary ---
Author Organization [facility] Address [address] [place] [address] Care Team Providers Care English Composition Teacher Name Role Phone Rio Jaquez MD Primary Care Provider Barry Kilpatrick MD Unavailable Michelle Henderson RN Unavailable [phone] Rio Jaquez MD Unavailable +[phone] Jemima Jaramillo MD Unavailable Unavai Kelley Bautista RN Unavailable +[phone] Sydnee Saleem MD Unavailable +[phone] Karlene Moya MD Unavailable +[phone] Wilbert Quintero OD Unavailable +[phone] Rod GauthierM Unavailable +[phone] Nallely Hogue RN Unavailable Unavailable Larisa Vargas RN Unavailable Unavailable Jan Mahmood MD Unavailable +[phone] Brandt Quintana MD Unavailable +[phone] Jan Mahmood MD Unavailable +[phone] Rio Jaquez MD Unavailable +[phone] Dom Eason MD Unavailable +[phone] Jayla Plaza RN Unavailable +[phone] Sydnee [...] Unavailable +[phone] Dom Eason MD Unavailable +[phone] Wagner Oliver MD Unavailable +[phone] Laura Epperson NP Unavailable +[phone] Thom Taveras MD Unavailable +[phone] Joesph Crowe MD Unavailable +[phone] Joesph Crowe MD Unavailable + [phone] Adonay Haq MD Unavailable +[phone] Denilson Srinivasan MD Unavailable + [phone] Jason Alvares MD Unavailable Ruth Riddle DPM, Podiatry /Foot and Ankle Surgery Unavailable Omar Carmona MD Primary Care Provider [phone] Jignesh Mathias MD Unavailable Adonay Haq MD Unavailable Omar Carmona MD Unavailable [phone] Jason Alvares MD Unavailable Jignesh Mathias MD Unavailable Ayad Lopez PhD LP Unavailable +[phone] Gavi Nieto PA-C Unavailable +[phone] Encounter Details Date Type Department Care Team (Late st Contact Info) Description 02/06/2022 [facility] [facility] [address] [place] [address] Jason Alvares MD 420 [facility] 295 [place] [address] Social History Tobacco Use Types [...] any clubs o r organizations such as jehovah's witness groups, unions, fraternal or athletic groups, or [...] Answer Date Recorded PHQ-2 Score 2 08/27/2021 [facility] of Occupat ional [facility] - Occupational Stress Questionnaire Answer Date [...] place to sleep or slept in a longterm (including now)? No 08/27/2021 Comments No Sex and Gender Information Value Date Recorded Sex Assigned at Female 09/12/2020 12:05 PM MATERIALS MGMT TECH Legal Sex Female 3:26 AM MATERIALS MGMT TECH Gender Identity Female 09/12/2020 12:05 PM MATERIALS MGMT TECH Sexual Orientation Straight 12/19/2021 10 :44 [...] suspected to have Coronavirus/COVID-19? No / Unsure 02/09/2022 3:15 PM CDT documented as of this encounter Plan of Treatment Upcoming Encounters Date Type Department Care Team (Late st Contact Info) Description 03/26/2025 11:00 AM CDT Therapy Visit [address] [phone] Jason Alvares MD 420 [facility] 295 [place], [place] 427925 Chaya Castillo OTR [address] [address] 03/29/2025 10:30 AM CDT Therapy Visit [facility] Specialty [place] [address] [place] [phone] [place] [address] [facility] 300 [place], [place] [phone] 04/02/2025 11:00 AM CDT [facility] 150 [facility] [place] [phone] Jason Alvares MD [address] [place] [address] Chaya Castillo OTR [facility] 150 [place] [address] 04/11/2025 12:30 PM CDT Office Visit [facility] [address] 4th [place] [phone] Omar Carmona MD [address] [place] [address] 04/12/2025 2:15 PM CDT Therapy [facility] 150 [place] [phone] Jason Alvares MD [address] [place] [address] Chaya Castillo OTR [facility] 150 [place] [address] 04/16/2025 11:00 AM CDT Therapy [facility] 150 [facility] [place] [phone] Jason Alvares MD [address] [place] [address] 125895 Chaya Castillo OTR [facility] 150 [place] [address] 04/23/2025 11:00 AM CDT Therapy [facility] 150 [place] [phone] Jason Alvares MD [address] [place] [address] Chaya Castillo OTR [facility] 150 [place] [address] 04/30/2025 11:00 AM CDT Therapy Visit [facility] 150 [place] [phone] Jason Alvares MD [address] [place] [address] Chaya Castillo OTR [address] [address] 05/15/2025 12:30 PM CDT Office Visit [address] [phone] Marquise Hanley MD [address] [place] [address] 06/08/2025 9:15 AM CDT Office Visit [facility] Hepatology [facility] [address] [phone] Jignesh Mathias MD [address] [place] [address] 075745 11/05/2025 1:45 PM CDT Office Visit [facility] Dermatology Clinic [address] 3rd [place] [phone] Gavi Nieto PA-C Dermatology [address] [place] [address] [phone] documented as of this encounter Goals Goal [...] Total Score: 5 08/27/19 22 9:25 AM MATERIALS MGMT TECH documented as of this encounter Care Teams English Composition Teacher Relationship Specialty Start Date End Date Rio Jaquez MD [address] [place] [address] PCP - General Family Practice 12/02/10 07/13/24 Omar Carmona MD [address] [place] [address]98[address] PCP - General Family Medicine 07/14/24 Barry Kilpatrick MD [address] [place] [address] [id number] [place] [address] Neurology 07/19/14 Michelle Henderson I, RN Nurse Coordinator Neurology 07/19/14 Rio Jaquez MD [address] [place] [address] Family Practice 10/15/14 Jemima Jaramillo MD laminator hand 11/20/14 Kelley Chin, TANIA [facility] 909 [place] [address] Nurse Coordinator Cardiology 11/04/15 Sydnee Saleem MD [address] [place] [address] 508 [place] [address] Cardiology 11/04/15 Karlene Moya MD [address] [place] [address] Ophthalmology 06/24/17 Wilbert Quintero, OD [address] [place] [address] Optometry 06/24/17 Rod Gauthier DPM [address] [place] [address] Delineator Primary Podiatric Medicine 06/21/18 Nallely Hogue, TANIA Registered Nurse 02/20/19 11/23/22 Larisa Vargas, TANIA Specialty Paving Block Cutter Cardiology 04/18/19 03/06/22 Jan Mahmood MD [address] [place] [address] Gastroenterology 11/05/20 Brandt Quintana MD [address] [place] [address] Resident 11/05/20 Jan Mahmood MD [address] [place] [address] Assigned Gastroenterology Provider 12/01/20 Rio Jaquez MD 909 [facility] 4 [place] [address] Assigned PCP 11/17/20 09/30/24 Dom Eason MD 717 [facility] 353 [place] [address] Internal Medicine 12/02/20 Jayla Plaza, RN Specialty Paving Block Cutter Hepatology 01/09/21 02/13/24 Sydnee Saleem MD [address] [address] Assigned Heart and Vascular Provider 02/02/21 07/24/22 Cristian Barragan MD 2945 [place] [address] Assigned Infectious Disease Provider 02/21/21 03/06/22 Jaimie Vernon, RN Specialty Paving Block Cutter Cardiology 10/28/21 Ruth Riddle, DPM, Podiatry/Foot and Ankle Surgery [address] [facility] 300 [place] [address] Assigned Musculoskeletal Provider 11/30/21 09/30/23 Jason Alvares MD 420 [facility] 295 [place], [place] 851135 Assigned Neuroscience Provider 01/03/22 05/15/22 Marquise Hanley MD 909 [place] [address] Endocrinology, Diabetes, and Metabolism 03/05/22 Vlad Ramey MD [address] [place] [address] 16329 Cardiovascular Disease 05/07/22 Joesph Crowe MD [address] [place] [address]227 Surgery 05/07/22 Luis Arrington MD [address] [place] [address] 085855 Assigned Neuroscience Provider 05/16/22 05/14/23 Michelle Padilla, RN Specialty Paving Block Cutter Cardiology 07/03/22 Vlad Ramey MD [address] [place] [address]41 Assigned Heart and Vascular Provider 07/25/22 05/28/23 Marquise Hanley MD [address] [place] [address] 14514 Assigned Endocrinology Provider 08/15/22 Dom Eason MD [address] [place] [place] [address] Assigned Nephrology Provider 11/28/22 02/19/23 Wagner Oliver MD [address] [place] [address] Critical Care 12/15/22 Laura Epperson, BOBBIN LOOSE END FINDER [address] [place] [address] 1932 [place] [address] Assigned Nephrology Provider 02/20/23 08/30/24 Thom Taveras MD [address] [place], [place] 62[address]105 [place] [address] Assigned Cancer Care Provider 02/06/23 08/20/23 Joesph Crowe MD [address] [place] [address]383 Surgery 03/17/23 Joesph Crowe MD [address] [place] [address] 35966 Assigned Surgical Provider 04/03/23 09/30/24 Adonay Haq MD [address] [place] [address] Internal Medicine 06/14/23October, Denilson Jackson MD 6405 [facility] [address] [facility] [address] [place] [address] Assigned Heart and Vascular Provider 05/29/23 11/28/24 Jason Alvares MD [address] [place] [address] 295 [place] [address] Assigned Neuroscience Provider 05/15/23 11/28/24 Ruth Riddle DPM, Podiatry/Foot and Ankle Surgery [address] [place] [address] Assigned Musculoskeletal Provider 10/22/23 Jignesh Mathias MD [address] [place] [address] Gastroenterology 09/25/24 Adonay Haq MD [address] [place] [address] Assigned PCP 10/01/24 12/28/24 Omar Carmona MD [address] [place] [address] 811675 Assigned PCP 12/29/24 Jason Alvares MD [address] [place] [address] Assigned Neuroscience Provider 12/29/24 Jignesh Mathias MD [address] [place] [address] Assigned Surgical Provider 12/29/24 Ayad Lopez, PhD LP [address] [place] [address] Assigned Behavioral Health Provider 02/28/25 Gavi Nieto PA-C [address] [place] [address] 507605 Physician Shade Classifier Dermatology 03/19/25 documented as of this encounter
--- OUTSIDE RECORDS SUMMARY | 2025-03-24 20:30 | XMS_ITS | Encounter Summary ---
Author Organization [facility] Address [address] [place] [address] Care Team Providers Care Prospecting Driller Helper Name Role Phone Elsewhere, Pcp Primary Care Provider Unavailabl e Reason for Visit * Reason Comments Med Refill Encounter Details Date Type Department Care Team (Late st Contact Info) Description 02/16/2025 Refill Department of Family Medicine, [facility], in [address] [phone] Yonis Guerra M.D. [address] [place] [address] [phone] Med Refill Social History Tobacco Use Types Packs/Day Years Used Date Smoking Tobacco: Every Day Cigarettes 0.5 40.7 Started: 08/09/1985 Passive Smoke Exposure: Never Smokeless Tobacco: Never Alcohol Use Standard Drinks/Week Comments Not Currently 0 (1 standard drink = 0.6 oz pur e alcohol) [facility] Utilities Answer Date Recorded In the past 12 months has e electric, gas, oil, or water company [...] Sex Assigned at Female 09/14/2023 4:26 PM WINDOWS SERVER ENGINEER Legal Sex Female 11:56 AM WINDOWS SERVER ENGINEER Gender Identity Female 09/14/2023 4:26 PM WINDOWS SERVER ENGINEER Sexual Orientation Straight 09/14/2023 4: 26 PM WINDOWS SERVER ENGINEER documented as of this encounter Miscellaneous Notes * Telephone Encounter - Yonis Guerra M.D. - 02/20/2025 9:22 AM CDT Please send this refill request to POD documented in this encounter Plan of Treatment Not on file documented as of this encounter Visit Diagnoses Not on filedocumented in this encounter Additional Health Concerns Assessment Noted Time PHQ-9 Depression Total Score: 12 025 10:01 AM CDT documented as of this encounter Care Teams Prospecting Driller Helper Relationship Specialty Start Date End Date Elsewhere, Pcp PCP - General Internal Medicine 12/28/24 documented as of this encounter
--- OUTSIDE RECORDS SUMMARY | 2025-03-24 20:30 | XMS_ITS | Encounter Summary ---
Author Organization [facility] Address [address] [place] [address] Care Team Providers Care Mechanical Cad Drafter Name Role Phone Elsewhere, Pcp Primary Care Provider Unavailabl e Reason for Visit * Reason Comments Med Refill Encounter Details Date Type Department Care Team (Late st Contact Info) Description 02/16/2025 Refill Department of Family Medicine, [facility], in [address] [phone] Yonis Guerra M.D. [address] [place] [address] [phone] Med Refill Social History Tobacco Use Types Packs/Day Years Used Date Smoking Tobacco: Every Day Cigarettes 0.5 40.7 Started: 08/09/1985 Passive Smoke Exposure: Never Smokeless Tobacco: Never Alcohol Use Standard Drinks/Week Comments Not Currently 0 (1 standard drink = 0.6 oz pur e alcohol) [facility] Utilities Answer Date Recorded In the [...] Sex Assigned at Female 09/14/2023 4:26 PM ROLLER INSPECTOR Legal Sex Female 11:56 AM ROLLER INSPECTOR Gender Identity Female 09/14/2023 4:26 PM ROLLER INSPECTOR Sexual Orientation Straight 09/14/2023 4: 26 PM ROLLER INSPECTOR documented as of this encounter Plan of Treatment Not on file documented as of this encounter Visit Diagnoses Not on filedocumented in this encounter Additional Health Concerns Assessment Noted Time PHQ-9 Depression Total Score: 12 025 10:01 AM CDT documented as of this encounter Care Teams Mechanical Cad Drafter Relationship Specialty Start Date End Date Elsewhere, Pcp PCP - General Internal Medicine 12/28/24 documented as of this encounter
--- OUTSIDE RECORDS SUMMARY | 2025-03-24 20:30 | XMS_ITS | Encounter Summary ---
Author Organization [facility] Address [address] [place] [address]53 Care Team Providers Care Merchandise Handler Name Role Phone Barry Kilpatrick MD Unavailable Michelle Henderson RN Unavailable [phone] Rio Jaquez MD Unavailable +[phone] Jemima Jaramillo MD Unavailable Unavai Kelley Bautista RN Unavailable +[phone] Sydnee Saleem MD Unavailable +[phone] Karlene Moya MD Unavailable +[phone] Wilbert Quintero OD Unavailable +[phone] Rod Gauthier DPM Unavailable Jan Mahmood MD Unavailable +[phone] Brandt Quintana MD Unavailable Jna Mahmood MD Unavailable +[phone] Dom Eason MD Unavailable +[phone] Jaimie Vernon RN Unavailable Unavailable Marquise Hanley MD Unavailable +[phone] Vlad Ramey MD Unavailable +[phone] Joesph Crowe MD Unavailable Michelle Padilla RN Unavailable Unavaila ble Marquise Hanley MD Unavailable +[phone] Wagner Oliver MD Unavailable + [phone] Joesph Crowe MD Unavailable +[phone] Adonay Haq MD Unavailable [phone] Ruth Riddle DPM, Podiatry /Foot and Ankle Surgery Unavailable Omar Carmona MD Primary Care Provider [phone] Jignesh Mathias MD Unavailable Omar Carmona MD Unavailable +[phone] Jason Alvares MD Unavailable Jignesh Mathias MD Unavailable Ayad Lopez PhD LP Unavailable [phone] Encounter Details Date Type Department Care Team (Latest Contact Info) Description 03/12/2025 Travel Social History Tobacco Use Types Packs/Day [...] Answer Date Recorded PHQ-2 Score 3 12/04/2024 [facility] - Occupational Stress Questionnaire Answer Date [...] Sex Assigned at Female 09/12/2020 12:05 PM BUSINESS LIAISON MANAGER Legal Sex Female 3:26 AM BUSINESS LIAISON MANAGER Gender Identity Female 09/12/2020 12:05 PM BUSINESS LIAISON MANAGER Sexual Orientation Straight 12/19/2021 10 :44 [...] Description 03/26/2025 11:00 AM CDT Therapy Visit [address] [phone] Jason Alvares MD [address] [place] [address] [phone] Chaya Castillo OTR [facility] [address] [address] 03/29/2025 10:30 AM CDT Therapy Visit [facility] [address] [facility] [address] [place] [phone] [place] [address] [place], [place] 857367 04/02/2025 11:00 AM CDT Therapy Visit [address] [phone] Jason Alvares MD [address] [place] [address] [phone] Chaya Castillo OTR [facility] [address] [place] [address] 04/11/2025 12:30 PM CDT Office Visit [facility] [address] 4th [place] [phone] Omar Carmona MD [address] [place] [address] 04/12/2025 2:15 PM CDT Therapy Visit [address] [phone] Jason Alvares MD [address] [place] [address] Ch[facility]illo [facility] [address] [place] [address] 04/16/2025 11:00 AM CDT Therapy Visit [facility] 150 [place] [phone] Jason Alvares MD [address] [place] [address] Chaya Castillo, [facility]TR [facility] [address] [place] [address] 04/23/2025 11:00 AM CDT Therapy Visit [facility] 150 [place] [phone] Jason Alvares MD [address] [place] [address] [phone] Chaya Castillo OTR [facility] 150 [place] [address] 04/30/2025 11:00 AM CDT Therapy Visit [facility] 150 [place] [phone] Jason Alvares MD 420 [facility] 295 [place] [address] Chaya Castillo, OTR [facility] 150 [place] [address] 05/15/2025 12:30 PM CDT Office Visit [address] [phone] Marquise Hanley MD [address] [place] [address] 06/08/2025 9:15 AM CDT Office Visit [facility] [address] [phone] Jignesh Mathias MD [address] [place] [address] 11/05/2025 1:45 PM CDT Office Visit [facility] [address] 3rd [place] [phone] Gavi Nieto PA-C Dermatology [address] [place] [address] [phone] documented as of this encounter Goals Goal [...] documented as of this encounter Care Teams Merchandise Handler Relationship Specialty Start Date End Date Omar Carmona MD [address] [place] [address] [phone] PCP - General Family Medicine 07/14/24 Barry Kilpatrick MD [address] [place] [address] [id number] [place], [place] 916885 Neurology 07/19/14 Michelle Henderson RN Nurse Coordinator Neurology 07/19/14 Rio Jaquez MD [address] [place] [address]39 Family Practice 10/15/14 Jemima Jaramillo MD [address] [place] [address] 19025 philosophy faculty 11/20/14 Kelley Chin, TANIA [address] 563895 Nurse Coordinator Cardiology 11/04/15 Sydnee Saleem MD [address] [place] [address] 508 [place], [place] 860325 Cardiology 11/04/15 Karlene Moya MD [address] [place] [address] 152465 Ophthalmology 06/24/17 Wilbert Quintero, OD [address] [place] [address] 42075 Optometry 06/24/17 Rod Gauthier DPM [address] [place] [address] 31955 Custom Motorcycle Painter Primary Podiatric Medicine 06/21/18 Jan Mahmood MD [address] [place] [address] 9[address]10 Gastroenterology 11/05/20 Brandt Quintana MD [address] [place] [address] 61470 Resident 11/05/20 Jan Mahmood MD [address] [place] [address] 38667 Assigned Gastroenterology Provider 12/01/20 Dom aEson MD [address] [place] [address] 29703 Internal Medicine 12/02/20 Jaimie Vernon, TANIA Specialty Cemetery Worker Cardiology 10/28/21 Marquise Hanley MD [address] [place] [address] 96813 Endocrinology, Diabetes, and Metabolism 03/05/22 Vlad Ramey MD [address] [place] [address] 91500 Cardiovascular Disease 05/07/22 Joesph Crowe MD [address] [place] [address] 13615 Surgery 05/07/22 Michelle Padilla, RN Specialty Cemetery Worker Cardiology 07/03/22 Marquise Hanley MD [address] [place] [address] 02662 Assigned Endocrinology Provider 08/15/22 Wagner Oliver MD [address] [place] [address] Critical Care 12/15/22 Joesph Crowe MD [address] [place] [address] 23450 Surgery 03/17/23 Adonay Haq MD [address] [place] [address] 30333 Internal Medicine 06/14/23 Ruth Riddle DPM, Podiatry/Foot and Ankle Surgery [address] [place] [address] Assigned Musculoskeletal Provider 10/22/23 Jignesh Mathias MD [address] [place] [address] 97506 Gastroenterology 09/25/24 Omar Carmona MD [address] [place] [address] 23437 Assigned PCP 12/29/24 Jason Alvares MD [address] [phone] Assigned Neuroscience Provider 12/29/24 Jignesh Mathias MD [address] [place] [address] 963555 Assigned Surgical Provider 12/29/24 Ayad Lopez, PhD LP 6 [place], [place] 718125 Assigned Behavioral Health Provider 02/28/25 documented as of this encounter
--- OUTSIDE RECORDS SUMMARY | 2025-03-24 20:30 | XMS_ITS | Encounter Summary ---
Author Organization [facility] Address [address] [place] [address] Care Team Providers Care Supervisor Porcelain Department Name Role Phone Barry Kilpatrick MD Unavailable Michelle Henderson RN Unavailable [phone] Rio Jaquez MD Unavailable [phone] Jemima Jaramillo MD Unavailable Unavai Kelley Bautista RN Unavailable [phone] Sydnee Saleem MD Unavailable [phone] Karlene Moya MD Unavailable [phone] Wilbert Quintero OD Unavailable +[phone] Rod Gauthier DPM Unavailable [phone] Jan Mahmood MD Unavailable [phone] Brandt Quintana MD Unavailable [phone] Jan Mahmood MD Unavailable [phone] Dom Eason MD Unavailable [phone] Jaimie Vernon RN Unavailable Unavailable Marquise Hanley MD Unavailable +[phone] Vlad Ramey MD Unavailable [phone] Joesph Crowe MD Unavailable Michelle Padilla RN Unavailable Unavaila ble Marquise Hanley MD Unavailable +[phone] Wagner Oliver MD Unavailable + [phone] Joesph Crowe MD Unavailable +[phone] Adonay Haq MD Unavailable [phone] Ruth Riddle DPM, Podiatry /Foot and Ankle Surgery Unavailable Omar Carmona MD Primary Care Provider [phone] Jignesh Mathias MD Unavailable Omar Carmona MD Unavailable [phone] Jason Alvares MD Unavailable Jignseh Mathias MD Unavailable Ayad Lopez PhD LP Unavailable [phone] Encounter Details Date Type Department Care Team (Latest Contact Info) Description 03/18/2025 Travel Social History Tobacco Use Types Packs/Day [...] than three times a week 08/27/2021 Attends [employer] Not on file 08/27 Do you [...] Answer Date Recorded PHQ-2 Score 3 12/04/2024 [facility] - Occupational Stress Questionnaire Answer Date [...] Sex Assigned at Female 09/12/2020 12:05 PM KNOCKOUT WORKER Legal Sex Female 3:26 AM KNOCKOUT WORKER Gender Identity Female 09/12/2020 12:05 PM KNOCKOUT WORKER Sexual Orientation Straight 12/19/2021 10 :44 [...] 03/26/2025 11:00 AM CDT Therapy Visit [address] [phone] Jason Alvares MD [address] [place] [address] [phone] Chaya Castillo OTR FV [address] [address] 03/29/2025 10:30 AM CDT Therapy Visit [facility] [address] [facility] [address] [place] [phone] [place] [address] [place], [place] [address] 04/02/2025 11:00 AM CDT Therapy Visit [address] [phone] Jason Alvares MD [address] [place] [address] [phone] Chaya Castillo OTR [facility] [address] [facility] [place] [address] 04/11/2025 12:30 PM CDT Office Visit [facility] [address] 4th [place] [phone] Omar Carmona MD [address] [place] [address] 04/12/2025 2:15 PM CDT Therapy Visit [address] [phone] Jason Alvares MD [address] [place] [address] Chaya Castillo OTR [facility] 150 [place] [address] 04/16/2025 11:00 AM CDT Therapy Visit [facility] 150 [place] [phone] Jason Alvares MD [address] [place] [address] Chaya Castillo, OTR [facility] 150 [place] [address] 04/23/2025 11:00 AM CDT Therapy Visit [facility] 150 [place] [phone] Jason Alvares MD [address] [place] [address] 558195 Chaya Castillo OTR [facility] 150 [place] [address] 04/30/2025 11:00 AM CDT Therapy Visit [facility] 150 [place] [phone] Jason Alvares MD 420 [facility] 295 [place] [address] Chaya Castillo, OTR [facility] 150 [place] [address] 05/15/2025 12:30 PM CDT Office Visit [address] [phone] Marquise Hanley MD [address] [place] [address] 06/08/2025 9:15 AM CDT Office Visit [facility] [address] [phone] Jignesh Mathias MD [address] [place] [address] 11/05/2025 1:45 PM CDT Office Visit [facility] [address] 3rd [place] [phone] Gavi Nieto PA-C Dermatology [address] [place] [address] [phone] documented as of this encounter Goals Goal [...] as of this encounter Care Teams Supervisor Porcelain Department Relationship Specialty Start Date End Date Omar Carmona MD [address] [place] [address] [phone] PCP - General Family Medicine 07/14/24 Barry Kilpatrick MD [address] [place] [address] [id number] [place], [place] 355605 Neurology 07/19/14 Michelle Henderson RN Nurse Coordinator Neurology 07/19/14 Rio Jaquez MD [address] [place] [address] 37233 Family Practice 10/15/14 Jemima Jaramillo MD [address] [place] [address] 63385 fox raiser 11/20/14 Kelley Chin, TANIA [address] 423235 Nurse Coordinator Cardiology 11/04/15 Sydnee Saleem MD [address] [place] [address] 508 [place], [place] 585885 Cardiology 11/04/15 Karlene Moya MD [address] [place] [address] 724415 Ophthalmology 06/24/17 Wilbert Quintero, OD [address] [place] [address] 33696 Optometry 06/24/17 Rod Gauthier DPM [address] [place] [address] 88650 Stave Saw Operator Primary Podiatric Medicine 06/21/18 Jan Mahmood MD [address] [place] [address] 54154 Gastroenterology 11/05/20 Brandt Quintana MD [address] [place] [address] 21901 Resident 11/05/20 Jan Mahmood MD [address] [place] [address] 89876 Assigned Gastroenterology Provider 12/01/20 Dom Eason MD [address] [place] [address] 71252 Internal Medicine 12/02/20 Jaimie Vernon, TANIA Specialty Sas Bi Developer Cardiology 10/28/21 Marquise Hanley MD [address] [place] [address] 15507 Endocrinology, Diabetes, and Metabolism 03/05/22 Vlad Ramey MD [address] [place] [address] 17300 Cardiovascular Disease 05/07/22 Joesph Crowe MD [address] [place] [address] 01939 Surgery 05/07/22 Michelle Padilla, RN Specialty Sas Bi Developer Cardiology 07/03/22 Marquise Hanley MD [address] [place] [address] 54596 Assigned Endocrinology Provider 08/15/22 Wagner Oliver MD [address] [place] [address] Critical Care 12/15/22 Joesph Crowe MD [address] [place] [address] 98923 Surgery 03/17/23 Adonay Haq MD [address] [place] [address] 17676 Internal Medicine 06/14/23 Ruth Riddle DPM, Podiatry/Foot and Ankle Surgery [address] [place] [address] Assigned Musculoskeletal Provider 10/22/23 Jignesh Mathias MD [address] [place] [address] 74757 Gastroenterology 09/25/24 Omar Carmona MD [address] [place] [address] 25807 Assigned PCP 12/29/24 Jason Alvares MD [address] 737075 Assigned Neuroscience Provider 12/29/24 Jignesh Mathias MD [address] [place] [address] [phone] Assigned Surgical Provider 12/29/24 Ayad Lopez, PhD LP 6 [place], [place] 754555 Assigned Behavioral Health Provider 02/28/25 documented as of this encounter
--- OUTSIDE RECORDS SUMMARY | 2025-03-24 20:30 | XMS_ITS | Encounter Summary ---
Author Organization [facility] Address [address] [place] [address]41 Care Team Providers Care Furniture Detailer Name Role Phone Rio Jaquez MD Primary Care Provider Barry Kilpatrick MD Unavailable Michelle Henderson RN Unavailable [phone] Rio Jaquez MD Unavailable +[phone] Jemima Jaramillo MD Unavailable Unavai Kelley Bautista RN Unavailable +[phone] Sydnee Saleem MD Unavailable +[phone] Karlene Moya MD Unavailable +[phone] Wilbert Quintero OD Unavailable +[phone] Rod GauthierM Unavailable +[phone] Nallely Hogue RN Unavailable Unavailable Larisa Vargas RN Unavailable Unavailable Jan Mahmood MD Unavailable +[phone] Brandt Quintana MD Unavailable +[phone] Jan Mahmood MD Unavailable +[phone] Rio Jaquez MD Unavailable +[phone] Dom Eason MD Unavailable +[phone] Jayla Plaza RN Unavailable +[phone] Sydnee [...] Unavailable +[phone] Dom Eason MD Unavailable +[phone] Wagner Oliver MD Unavailable +[phone] Laura Epperson NP Unavailable +[phone] Thom Taveras MD Unavailable +[phone] Joesph Crowe MD Unavailable +[phone] Joesph Crowe MD Unavailable + [phone] Adonay Haq MD Unavailable +[phone] Denilson Srinivasan MD Unavailable + [phone] Jason Alvares MD Unavailable Ruth Riddle DPM, Podiatry /Foot and Ankle Surgery Unavailable Omar Carmona MD Primary Care Provider +[phone] Jignesh Mathias MD Unavailable Aodnay Haq MD Unavailable +[phone] Omar Carmona MD Unavailable +[phone] Jason Alvares MD Unavailable Jignesh Mathias MD Unavailable Ayad Lopez PhD LP Unavailable +[phone] Gavi Nieto PA-C Unavailable +[phone] Encounter Details Date Type Department Care Team (Late st Contact Info) Description 02/09/2022 [facility] Medical Advice [facility] Neurology Clinic [address] [address] Luis Arrington MD [address] [place] [address] Social History Tobacco Use Types Packs/Day [...] Answer Date Recorded PHQ-2 Score 2 08/27/2021 [facility] Occupat ional [facility] - Occupational Stress Questionnaire Answer [...] Assigned at Female 09/12/2020 12:05 PM SHEET WRITER Legal Sex Female 3:26 AM SHEET WRITER Gender Identity Female 09/12/2020 12:05 PM SHEET WRITER Sexual Orientation Straight 12/19/2021 10 :44 AM [...] suspected to have Coronavirus/COVID-19? No / Unsure 02/11/2022 8:49 AM CDT documented as of this encounter Plan of Treatment Upcoming Encounters Date Type Department Care Team (Late st Contact Info) Description 03/26/2025 11:00 AM CDT Therapy Visit [address] [phone] Jason Alvares MD 420 [facility] 295 [place], [place] [address] Chaya Castillo OTR [address] [address] 03/29/2025 10:30 AM CDT Therapy Visit [facility] Specialty [place] [address] [place] [phone] [place] [address] [address] 300 [place], [place] [phone] 04/02/2025 11:00 AM CDT Therapy [facility] 150 [facility] [place] [phone] Jason Alvares MD [address] [place] [address] Chaya Castillo [facility]TR [facility] 150 [place] [address] 04/11/2025 12:30 PM CDT Office Visit [facility] Primary Care Clinic [address] 4th [place] [phone] Omar Carmona MD [address] [place] [address] 04/12/2025 2:15 PM CDT Therapy [facility] 150 [place] [phone] Jason Alvares MD [address] [place] [address] Chaya Castillo [facility]TR [facility] 150 [place] [address] 04/16/2025 11:00 AM CDT Therapy [facility] 150 [facility] [place] [phone] Jason Alvares MD [address] [place] [address] 863365 Chaya Castillo OTR [facility] 150 [place] [address] 04/23/2025 11:00 AM CDT Therapy [facility] 150 [place] [phone] Jason Alvares MD [address] [place] [address] Chaya Castillo OTR [facility] 150 [place] [address] 04/30/2025 11:00 AM CDT Therapy Visit [facility] 150 [place] [phone] Jason Alvares MD [address] [place] [address] Chaya Castillo OTR [address] [address] 05/15/2025 12:30 PM CDT Office Visit [address] [phone] Marquise Hanley MD [address] [place] [address] 06/08/2025 9:15 AM CDT Office Visit [facility] Hepatology Clinic [address] [phone] Jignesh Mathias MD [address] [place] [address] 640975 11/05/2025 1:45 PM CDT Office Visit [facility] Dermatology Clinic [address] 3rd [place] [phone] Gavi Nieto PA-C Dermatology [address] [place] [address] [phone] documented as of this encounter Goals Goal [...] Total Score: 5 08/27/19 22 9:25 AM SHEET WRITER documented as of this encounter Care Teams Furniture Detailer Relationship Specialty Start Date End Date Rio Jaquez MD [address] [place] [address] PCP - General Family Practice 12/02/10 07/13/24 Omar Carmona MD [address] [place] [address] PCP - General Family Medicine 07/14/24 Barry Kilpatrick MD [address] [place] [address] [id number] [place] [address] Neurology 07/19/14 Michelle Henderson I, RN Nurse Coordinator Neurology 07/19/14 Rio Jaquez MD [address] [place] [address] Family Practice 10/15/14 Jemima Jaramillo MD toxicologist 11/20/14 Kelley Chin, TANIA [facility] 909 [place] [address] Nurse Coordinator Cardiology 11/04/15 Sydnee Saleem MD [address] [place] [address] 508 [place] [address] Cardiology 11/04/15 Karlene Moya MD [address] [place] [address] Ophthalmology 06/24/17 Wilbert Quintero, OD [address] [place] [address] Optometry 06/24/17 Rod Gauthier DPM [address] [place] [address] Railroad Car Repairman Primary Podiatric Medicine 06/21/18 Nallely Hogue, TANIA Registered Nurse 02/20/19 11/23/22 Larisa Vargas, TANIA Specialty Hat Blocker Cardiology 04/18/19 03/06/22 Jan Mahmood MD [address] [place] [address] Gastroenterology 11/05/20 Brandt Quintana MD [address] [place] [address] Resident 11/05/20 Jan Mahmood MD [address] [place] [address] Assigned Gastroenterology Provider 12/01/20 Rio Jaquez MD 909 [facility] 4 [place] [address] Assigned PCP 11/17/20 09/30/24 Dom Eason MD 717 [facility] 353 [place] [address] Internal Medicine 12/02/20 Jayla Plaza, RN Specialty Hat Blocker Hepatology 01/09/21 02/13/24 Sydnee Saleem MD [address] [address] Assigned Heart and Vascular Provider 02/02/21 07/24/22 Cristian Barragan MD 2945 [place] [address] Assigned Infectious Disease Provider 02/21/21 03/06/22 Jaimie Vernon, RN Specialty Hat Blocker Cardiology 10/28/21 Ruth Riddle, DPM, Podiatry/Foot and Ankle Surgery [address] [facility] 300 [place] [address] Assigned Musculoskeletal Provider 11/30/21 09/30/23 Jason Alvares MD 420 [facility] 295 [place], [place] 360[address] Assigned Neuroscience Provider 01/03/22 05/15/22 Marquise Hanley MD 909 [place] [address] Endocrinology, Diabetes, and Metabolism 03/05/22 Vlad Ramey MD [address] [place] [address] Cardiovascular Disease 05/07/22 Joesph Crowe MD [address] [place] [address] 9[address] Surgery 05/07/22 Luis Arrington MD [address] [place] [address] [phone] Assigned Neuroscience Provider 05/16/22 05/14/23 Michelle Padilla, RN Specialty Hat Blocker Cardiology 07/03/22 Vlad Ramey MD [address] [place] [address] Assigned Heart and Vascular Provider 07/25/22 05/28/23 Marquise Hanley MD [address] [place] [address]45 Assigned Endocrinology Provider 08/15/22 Dom Eason MD [address] [place] [address] Assigned Nephrology Provider 11/28/22 02/19/23 Wagner Oliver MD [address] [place] [address] Critical Care 12/15/22 Laura Epperson, DIRECTOR OF TRANSPORTATION [address] [place] [address] 1932 [place] [address] Assigned Nephrology Provider 02/20/23 08/30/24 Thom Taveras MD [address] [place], [place] [address] [place] [address] Assigned Cancer Care Provider 02/06/23 08/20/23 Joesph Crowe MD [address] [place] [address]26 Surgery 03/17/23 Joesph Crowe MD [address] [place] [address]89 Assigned Surgical Provider 04/03/23 09/30/24 Adonay Haq MD [address] [place] [address] Internal Medicine 06/14/23October, Denilson Jackson MD 6405 [facility] [address] [place] [address] Assigned Heart and Vascular Provider 05/29/23 11/28/24 Jason Alvares MD [address] [place] [address] 295 [place] [address] Assigned Neuroscience Provider 05/15/23 11/28/24 Ruth Riddle DPM, Podiatry/Foot and Ankle Surgery [address] [place] [address] Assigned Musculoskeletal Provider 10/22/23 Jignesh Mathias MD [address] [place] [address] Gastroenterology 09/25/24 Adonay Haq MD [address] [place] [address] Assigned PCP 10/01/24 12/28/24 Omar Carmona MD [address] [place] [address] 520915 Assigned PCP 12/29/24 Jason Alvares MD [address] [place] [address] Assigned Neuroscience Provider 12/29/24 Jignesh Mathias MD [address] [place] [address] Assigned Surgical Provider 12/29/24 Ayad Lopez, PhD LP [address] [place] [address] Assigned Behavioral Health Provider 02/28/25 Gavi Nieto PA-C [address] [place] [address] 139605 Physician Laborer Yard Dermatology 03/19/25 documented as of this encounter
--- OUTSIDE RECORDS SUMMARY | 2025-03-24 20:30 | XMS_ITS | Encounter Summary ---
Author Organization [facility] Address [address] [place] [address] Care Team Providers Care Pest Control Supervisor Name Role Phone Rio Jaquez MD Primary Care Provider Barry Kilpatrick MD Unavailable Michelle Henderson RN Unavailable [phone] Rio Jaquez MD Unavailable +[phone] Jemima Jaramillo MD Unavailable Unavai Kelley Bautista RN Unavailable +[phone] Sydnee Saleem MD Unavailable +[phone] Karlene Moya MD Unavailable +[phone] Wilbert Quintero OD Unavailable +[phone] Rod GauthierM Unavailable +[phone] Nallely Hogue RN Unavailable Unavailable Larisa Vargas RN Unavailable Unavailable Jan Mahmood MD Unavailable +[phone] Brandt Quintana MD Unavailable +[phone] Jan Mahmood MD Unavailable +[phone] Rio Jaquez MD Unavailable +[phone] Dom Eason MD Unavailable +[phone] Jayla Plaza RN Unavailable +[phone] Sydnee [...] Unavailable +[phone] Dom Eason MD Unavailable +[phone] Wagner Oliver MD Unavailable +[phone] Laura Epperson NP Unavailable +[phone] Thom Taveras MD Unavailable +[phone] Joesph Crowe MD Unavailable +[phone] Joesph Crowe MD Unavailable + [phone] Adonay Haq MD Unavailable +[phone] Denilson Srinivasan MD Unavailable + [phone] Jason Alvares MD Unavailable Ruth Riddle DPM, Podiatry /Foot and Ankle Surgery Unavailable Omar Carmona MD Primary Care Provider +[phone] Jignesh Mathias MD Unavailable Adonay Haq MD Unavailable +[phone] Omar Carmona MD Unavailable +[phone] Jason Alvares MD Unavailable Jignesh Mathias MD Unavailable Ayad Lopez PhD LP Unavailable +[phone] Gavi Nieto PA-C Unavailable +[phone] Encounter Details Date Type Department Care Team (Late st Contact Info) Description 02/11/2022 [facility] Medical Advice [facility] Neurology Clinic [address] [phone] Alaina Moreland CMA Social History [...] any clubs o r organizations such as mu-ism groups, unions, fraternal or athletic groups, or [...] Answer Date Recorded PHQ-2 Score 2 08/27/2021 [facility] of Occupat ional [facility] - Occupational Stress Questionnaire Answer [...] Sex Assigned at Female 09/12/2020 12:05 PM CIRCUIT RECORDER Legal Sex Female 3:26 AM CIRCUIT RECORDER Gender Identity Female 09/12/2020 12:05 PM CIRCUIT RECORDER Sexual Orientation Straight 12/19/2021 10 :44 AM [...] 03/26/2025 11:00 AM CDT Therapy Visit [address] [phone] Jason Alvares MD 420 [facility] 295 [place], [place] [address] Chaya Castillo, LETA [address] [address] 03/29/2025 10:30 AM CDT Therapy Visit [facility] [address] [place] [address] [place] [address] 300 [place], [place] [phone] 04/02/2025 11:00 AM CDT Therapy Visit [address] [place] [address] Jason Alvares MD [address] [place] [address] Chaya [facility]illo [facility] 150 [place] [address] 04/11/2025 12:30 PM CDT Office Visit [facility] Primary Care Clinic [address] 4th [place] [phone] Omar Carmona MD [address] [place] [address] 567895 04/12/2025 2:15 PM CDT Therapy Visit [facility] 150 [place] [phone] Jason Alvares MD [address] [place] [address] Chaya Castillo [facility]TR [facility] 150 [place] [address] 04/16/2025 11:00 AM CDT [facility] 150 [place] [address] Jason Alvares MD [address] [place] [address] Chaya Castillo OTR [facility] 150 [place] [address] 04/23/2025 11:00 AM CDT Therapy [facility] 150 [place] [phone] Jason Alvares MD [address] [place] [address] 432885 Chaya Castillo OTR [address] [address] 04/30/2025 11:00 AM CDT Therapy Visit [facility] Rehabilitation Services [address] [phone] Jason Alvares MD [address] [place] [address] Chaya Castillo OTR [address] [address] 05/15/2025 12:30 PM CDT Office Visit [address] [phone] Marquise Hanley MD [address] [place] [address] 971555 06/08/2025 9:15 AM CDT Office Visit [facility] Hepatology Clinic [address] [phone] Jignesh Mathias MD [address] [place] [address] 11/05/2025 1:45 PM CDT Office Visit [facility] Dermatology Clinic [address] 3rd [place] [address] Gavi Nieto PA-C Dermatology [address] [place] [address] documented as of this encounter Goals Goal [...] Total Score: 5 08/27/19 22 9:25 AM CIRCUIT RECORDER documented as of this encounter Care Teams Pest Control Supervisor Relationship Specialty Start Date End Date Rio Jaquez MD [address] [place] [address] PCP - General Family Practice 12/02/10 07/13/24 Omar Carmona MD [address] [place] [address] PCP - General Family Medicine 07/14/24 Barry Kilpatrick MD [address] [place] [address] [id number] [place] [address] Neurology 07/19/14 Michelle Henderson RN Nurse Coordinator Neurology 07/19/14 Rio Jaquez MD [address] [place] [address] Family Practice 10/15/14 Jemima Jaramillo MD ocean freight manager 11/20/14 Kelley Chin, TANIA [address] 697165 Nurse Coordinator Cardiology 11/04/15 Sydnee Saleem MD 420 [facility] 508 [place], [place] 6[address] Cardiology 11/04/15 Karlene Moya MD [address] [place] [address] [phone] Ophthalmology 06/24/17 Wilbert Quintero, OD [address] [place] [address] 783205 Optometry 06/24/17 Rod Gauthier DPM [address] [place] [address] [id number] Track And Field Coach Primary Podiatric Medicine 06/21/18 Nallely Hogue, RN Registered Nurse 02/20/19 11/23/22 Larisa Vargas, TANIA Specialty Air Tool Operator Cardiology 04/18/19 03/06/22 Jan Mahmood MD [address] [place] [address] 2[address] [place], [place] 4184[address] Gastroenterology 11/05/20 Brandt Quintana MD [address] [place] [address] Resident 11/05/20 Jan Mahmood MD [address] [place] [address] Assigned Gastroenterology Provider 12/01/20 Rio Jaquez MD [address] [place] [address] 4 [place], [place] [phone] Assigned PCP 11/17/20 09/30/24 Dom Eason MD [address] [place] [address] 353 [place] [address] Internal Medicine 12/02/20 Jayla Plaza, RN Specialty Air Tool Operator Hepatology 01/09/21 02/13/24 Sydnee Saleem MD 6550 [facility] [address] [place] [address] Assigned Heart and Vascular Provider 02/02/21 07/24/22 Cristian Barragan MD 2945 [place], [place] [phone] Assigned Infectious Disease Provider 02/21/21 03/06/22 Jaimie Vernon, TANIA Specialty Air Tool Operator Cardiology 10/28/21 Ruth Riddle DPM, Podiatry/Foot and Ankle Surgery 95778 [facility] 300 [place] [address] Assigned Musculoskeletal Provider 11/30/21 09/30/23 Jason Alvares MD [address] [place] [address] 295 [place] [address] Assigned Neuroscience Provider 01/03/22 05/15/22 Marquise Hanley MD [address] [place] [address] Endocrinology, Diabetes, and Metabolism 03/05/22 Vlad Ramey MD [address] [place] [address] 9[address] Cardiovascular Disease 05/07/22 Joesph Crowe MD [address] [place] [address] 8[address] Surgery 05/07/22 Luis Arrington MD [address] [place] [address] Assigned Neuroscience Provider 05/16/22 05/14/23 Michelle Padilla RN Specialty Air Tool Operator Cardiology 07/03/22 Vlad Ramey MD [address] [place] [address] Assigned Heart and Vascular Provider 07/25/22 05/28/23 Marquise Hanley MD [address] [place] [address] Assigned Endocrinology Provider 08/15/22 Dom Eason MD 7 [facility] 353 [place] [address] Assigned Nephrology Provider 11/28/22 02/19/23 Wagner Oliver MD [address] [place] [address] Critical Care 12/15/22 Laura Epperson NP [address] [place] [address] 1932 [place] [address] Assigned Nephrology Provider 02/20/23 08/30/24 Thom Taveras MD [address] [place] [address] Assigned Cancer Care Provider 02/06/23 08/20/23 Joesph Crowe MD [address] [place] [address] Surgery 03/17/23 Joesph Crowe MD [address] [place] [address] 6[address] Assigned Surgical Provider 04/03/23 09/30/24 Adonay Haq MD [address] [place] [address] Internal Medicine 06/14/23OctoberDenilson MD [address] [facility] [address] [place] [address] Assigned Heart and Vascular Provider 05/29/23 11/28/24 Jason Alvares MD [address] [place] [address] [facility] 295 [place] [address] Assigned Neuroscience Provider 05/15/23 11/28/24 Ruth Riddle DPM, Podiatry/Foot and Ankle Surgery [address] [place], [place] 980667 Assigned Musculoskeletal Provider 10/22/23 Jignesh Mathias MD 909 [place] [address] Gastroenterology 09/25/24 Adonay Haq MD [address] [place] [address] [phone] Assigned PCP 10/01/24 12/28/24 Omar Carmona MD [address] [place] [address] 322185 Assigned PCP 12/29/24 Jason Alvares MD [address] [place] [address] 736355 Assigned Neuroscience Provider 12/29/24 Jignesh Mathias MD [address] [place] [address] 920085 Assigned Surgical Provider 12/29/24 Ayad Lopez, PhD LP [address] [place] [address] [phone] Assigned Behavioral Health Provider 02/28/25 Gavi Nieto PA-C [address] [place] [address] 506355 Physician Assembler Movement Dermatology 03/19/25 documented as of this encounter
--- OUTSIDE RECORDS SUMMARY | 2025-03-24 20:30 | XMS_ITS | Encounter Summary ---
Author Organization [place] Address [address] [place] [address] Care Team Providers Care Recreational Assistant Name Role Phone Rio Jaquez MD Primary Care Provider Barry Kilpatrick MD Unavailable Michelle Henderson I RN Unavailable [phone] Rio Jaquez MD Unavailable +[phone] Jemima Jaramillo MD Unavailable Unavai Kelley Bautista RN Unavailable +[phone] Sydnee Saleem MD Unavailable +[phone] Karlene Moya MD Unavailable +[phone] Wilbert Quintero OD Unavailable +[phone] Rod Gauthier DPM Unavailable Jan Mahmood MD Unavailable +[phone] Brandt Quintana MD Unavailable Jan Mahmood MD Unavailable +[phone] Rio Jaquez MD Unavailable +[phone] Dom Eason MD Unavailable Jyala Plaza RN Unavailable +[phone] Jaimie Vernon RN Unavailable Unavailable Ruth Riddle DPM, Podiatry /Foot and Ankle Surgery Unavailable Marquise Hanley MD Unavailable +[phone] Vlad Ramey MD Unavailable +[phone] Joesph Crowe MD Unavailable + [phone] Michelle Padilla RN Unavailable Unavaila ble Marquise Hanley MD Unavailable +[phone] Wagner Oliver MD Unavailable +[phone] Laura Epperson NP Unavailable +[phone] Joesph Crowe MD Unavailable + [phone] Joesph Crowe MD Unavailable + [phone] Adonay Haq MD Unavailable +[phone] OctoberDenilson MD Unavailable + [phone] Jason Alvares MD Unavailable Ruth Riddle DPM, Podiatry /Foot and Ankle Surgery Unavailable Omar Carmona MD Primary Care Provider [phone] Jignesh Mathias MD Unavailable Adonay Haq MD Unavailable [phone] Omar Carmona MD Unavailable [phone] Jason Alvares MD Unavailable Jignesh Mathias MD Unavailable Ayad Lopez PhD LP Unavailable +[phone] Gavi Nieto PA-C Unavailable +[phone] Encounter Details Date Type Department Care Team (Late st Contact Info) Description 08/27/2023 [facility] End[facility]ology Clinic [address] 3rd [place] [address] Lizbeth Lopes Social History Tobacco [...] Answer Date Recorded PHQ-2 Score 2 08/26/2023 [facility]at ional [facility] - [...] Sex Assigned at Female 09/12/2020 12:05 PM HUMAN RESOURCES ASSISTANT Legal Sex Female 3:26 AM HUMAN RESOURCES ASSISTANT Gender Identity Female 09/12/2020 12:05 PM HUMAN RESOURCES ASSISTANT Sexual Orientation Straight 12/19/2021 10 :44 [...] Description 03/26/2025 11:00 AM CDT Therapy Visit [address] [address] Jason Alvares MD [address] [place] [address] Chaya Castillo OTR [facility] [address] [place] [address] 03/29/2025 10:30 AM CDT Therapy Visit [facility] [address] [place] [phone] [place] [address] MICHAEL 300 [place], [place] [phone] 04/02/2025 11:00 AM CDT Therapy Visit [address] [phone] Jason Alvares MD [address] [place] [address] 960[address] Chaya Castillo [facility]TR [facility] [address] [place] [address] 04/11/2025 12:30 PM CDT Office Visit [facility] [address] 4th [place] [address] Omar Carmona MD [address] [place] [address] 434055 04/12/2025 2:15 PM CDT Therapy Visit [address] [phone] Jason Alvares MD [address] [place] [address]39[address] Chaya Castillo OTR [facility] 150 [facility] [address] 04/16/2025 11:00 AM CDT Therapy [facility] 150 [facility] [place] [phone] Jason Alvares MD [address] [place] [address] Chaya Castillo, OTR [facility] 150 [place] [address] 04/23/2025 11:00 AM CDT [facility] 150 [place] [address] Jason Alvares MD [address] [place] [address] Chaya Castillo, OTR [facility] 150 [place] [address] 04/30/2025 11:00 AM CDT Therapy Visit [facility] 150 [place] [address] Jason Alvares MD [address] [place] [address] Chaya Castillo, OTR [facility] 150 [place] [address] 05/15/2025 12:30 PM CDT Office Visit [address] [address] Marquise Hanley MD [address] [place] [address] 06/08/2025 9:15 AM CDT Office Visit [facility] Hepatology Clinic [address] [phone] Jignesh Mathias MD [address] [place] [address] 11/05/2025 1:45 PM CDT Office Visit [facility] Dermatology Clinic [address] 3rd [place] [address] Gavi Nieto PA-C Dermatology [address] [place] [address] documented as of this encounter Goals [...] Total Score: 9 06/14/20 23 7:18 AM HUMAN RESOURCES ASSISTANT documented as of this encounter Care Teams Recreational Assistant Relationship Specialty Start Date End Date Rio Jaquez MD [address] [place] [address] 80154 PCP - General Family Practice 12/02/10 07/13/24 Omar Carmona MD [address] [place] [address] 42368 PCP - General Family Medicine 07/14/24 Barry Kilpatrick MD [address] [place] [address] [id number] [place], [place] 819195 Neurology 07/19/14 Michelle Henderson I, RN Nurse Coordinator Neurology 07/19/14 Rio Jaquez MD [address] [place] [address] [address] 4 [place] [address] Family Practice 10/15/14 Jemima Jaramillo MD agricultural equipment sales engineer 11/20/14 Kelley Chin, TANIA [address] 348615 Nurse Coordinator Cardiology 11/04/15 Sydnee Saleem MD [address] [place] [address] 508 [place], [place] 078415 Cardiology 11/04/15 Karlene Moya MD [address] [place] [address] Ophthalmology 06/24/17 Wilbert Quintero, OD [address] [place] [address] [phone] Optometry 06/24/17 Rod Gauthier DPM [address] [place] [address] 826175 Pleater Hand Primary Podiatric Medicine 06/21/18 Jan Mahmood MD [address] [place] [address] [address] [place], [place] 537625 Gastroenterology 11/05/20 Brandt Quintana MD 1414 [place] [address] Resident 11/05/20 Jan Mahmood MD 516 [facility] 2A [place] [address] Assigned Gastroenterology Provider 12/01/20 Rio Jaquez MD 909 [facility] 4 [place], [place] 703755 Assigned PCP 11/17/20 09/30/24 Dom Eason MD 717 [facility] MICHAEL 353 [place], [place] 890694 Internal Medicine 12/02/20 Jayla Plaza, RN Specialty Surveyor Hydrographic Hepatology 01/09/21 02/13/24 Jaimie Vernon, RN Specialty Surveyor Hydrographic Cardiology 10/28/21 Ruth Riddle DPM, Podiatry/Foot and Ankle Surgery [address] [address] Assigned Musculoskeletal Provider 11/30/21 09/30/23 Marquise Hanley MD [address] [place] [address] 175225 Endocrinology, Diabetes, and Metabolism 03/05/22 Vlad Ramey MD [address] [place] [address] 89661 Cardiovascular Disease 05/07/22 Joesph Crowe MD [address] [place] [address] 90566 Surgery 05/07/22 Michelle Padilla, RN Specialty Surveyor Hydrographic Cardiology 07/03/22 Marquise Hanley MD [address] [place] [address] 64408 Assigned Endocrinology Provider 08/15/22 Wagner Oliver MD [address] [address] Critical Care 12/15/22 Laura Epperson NP 717 [facility] 1932 [place] [address] Assigned Nephrology Provider 02/20/23 08/30/24 Joesph Crowe MD [address] [place] [address] 27878 Surgery 03/17/23 Joesph Crowe MD [address] [place] [address] 31809 Assigned Surgical Provider 04/03/23 09/30/24 Adonay Haq MD [address] [place] [address]64 Internal Medicine 06/14/23 Denilson Srinivasan MD [address] [place] [address] Assigned Heart and Vascular Provider 05/29/23 11/28/24 Jason Alvares MD 420 [facility] 295 [place], [place] 117225 Assigned Neuroscience Provider 05/15/23 11/28/24 Ruth Riddle DPM, Podiatry/Foot and Ankle Surgery [address] [place] [address] 60828 Assigned Musculoskeletal Provider 10/22/23 Jignesh Mathias MD [address] [place] [address] [phone] Gastroenterology 09/25/24 Adonay Haq MD [address] [place] [address] 133425 Assigned PCP 10/01/24 12/28/24 Omar Carmona MD [address] [place] [address] 813265 Assigned PCP 12/29/24 Jason Alvares MD [address] [place] [address] 295 [place], [place] 757115 Assigned Neuroscience Provider 12/29/24 Jignesh Mathias MD [address] [place] [address] 00217 Assigned Surgical Provider 12/29/24 Ayad Lopez, PhD LP [address] [place] [address] 179295 Assigned Behavioral Health Provider 02/28/25 Gavi Nieto PA-C 500 [place], [place] 763125 Physician Citrix Administrator Dermatology 03/19/25 documented as of this encounter
--- OUTSIDE RECORDS SUMMARY | 2025-03-24 20:31 | XMS_ITS | Encounter Summary ---
Author Organization [place] Address [address] [place] [address] Care Team Providers Care Kiln Fireman Name Role Phone Rio Jaquez MD Primary Care Provider Barry Kilpatrick MD Unavailable Michelle Henderson RN Unavailable [phone] Rio Jaquez MD Unavailable +[phone] Jemima Jaramillo MD Unavailable Unavai Kelley Bautista RN Unavailable +[phone] Sydnee Saleem MD Unavailable +[phone] Karlene Moya MD Unavailable +[phone] Wilbert Quintero OD Unavailable +[phone] Rod Gauthier DPM Unavailable +[phone] Nallely Hogue RN Unavailable Unavailable Jan Mahmood MD Unavailable +[phone] Brandt Quintana MD Unavailable +[phone] Jan Mahmood MD Unavailable +[phone] Rio Jaquez MD Unavailable +[phone] Dom Eason MD Unavailable +[phone] Jayla Plaza RN Unavailable +[phone] Sydnee Saleem MD Unavailable +[phone] Jaimie Vernon RN Unavailable Unavailable Ruth RiddleM, Podiatry /Foot and Ankle Surgery Unavailable Marquise Hanley MD Unavailable +[phone] Vlad Ramey MD Unavailable +[phone] Joesph Crowe MD Unavailable + [phone] Luis Arrington MD Unavailable +[phone] Michelle Padilla RN Unavailable Unavaila ble Vlad Ramey MD Unavailable +[phone] Marquise Hanley MD Unavailable +[phone] Dom Eason MD Unavailable +[phone] Wagner Oliver MD Unavailable +[phone] ZeenatLaura rodirguez NP Unavailable +[phone] Thom Taveras MD Unavailable +[phone] Joesph Crowe MD Unavailable +[phone] Joesph Crowe MD Unavailable + [phone] Adonay Haq MD Unavailable +1- Denilson Srinivasan MD Unavailable + [phone] [facility] Unavailable Ruth Riddle DPM, Podiatry /Foot and Ankle Surgery Unavailable Omar Carmona MD Primary Care Provider +[phone] Jignesh Mathias MD Unavailable Adonay Haq MD Unavailable +1- Omar Carmona MD Unavailable Jason Alvares MD Unavailable Jignesh Mathias MD Unavailable Ayad Lopez PhD LP Unavailable [phone] Gavi Nieto PA-C Unavailable +[phone] Encounter Details Date Type Department Care Team (Late st Contact Info) Description 07/09/2022 My[facility] Medical Advice [facility] Heart [address] [address] Vlad Ramey MD [address] [place] [address] Social History Tobacco Use Types Packs/Day [...] than three times a week 08/27/2021 Attends [employer] Not on file 08/27 Do you belong to any clubs o r organizations such as mormonism groups, unions, fraternal or athletic groups, or [...] PHQ-2 Answer Date Recorded PHQ-2 Score 1 06/17/2022 [facility] [place] of Occupat ional Health - Occupational Stress [...] Sex Assigned at Female 09/12/2020 12:05 PM SALAD MAKER Legal Sex Female 3:26 AM SALAD MAKER Gender Identity Female 09/12/2020 12:05 PM SALAD MAKER Sexual Orientation Straight 12/19/2021 10 :44 [...] suspected to have Coronavirus/COVID-19? No / Unsure 06/29/2022 12:47 PM SALAD MAKER documented as of this encounter Plan of Treatment Upcoming Encounters Date Type Department Care Team (Late st Contact Info) Description 03/26/2025 11:00 AM CDT Therapy Visit [address] [phone] Jason Alvares MD 420 [facility] 295 [place], [place] 5[address]135 Chaya Castillo, OTR [address] [address] 03/29/2025 10:30 AM CDT Therapy Visit [facility] [address] [place] [phone] [place] [address] MICHAEL 300 [place], [place] [address] 04/02/2025 11:00 AM CDT Therapy Visit [facility] 150 [place] [phone] Jason Alvares MD [address] [place] [address] Chaya Castillo OTR [facility] 150 [facility] [place] [address] 04/11/2025 12:30 PM CDT Office Visit [facility] [address] 4th [place] [phone] Omar Carmona MD [address] [place] [address] 569315 04/12/2025 2:15 PM CDT Therapy Visit [facility] 150 [place] [phone] Jason Alvares MD [address] [place] [address] Chaya Castillo [facility]TR [facility] 150 [place] [address] 04/16/2025 11:00 AM CDT [facility] 150 [place] [phone] Jason Alvares MD [address] [place] [address] Chaya Castillo OTR [facility] 150 [place] [address] 04/23/2025 11:00 AM CDT Therapy Visit [facility] 150 [facility] [place] [address] Jason Alvares MD [address] [place] [address] Chaya Castillo OTR [address] [address] 04/30/2025 11:00 AM CDT Therapy Visit [facility] [address] [phone] Jason Alvares MD [address] [place] [address] Chaya Castillo OTR [address] [address] 05/15/2025 12:30 PM CDT Office Visit [address] [phone] Marquise Hanley MD [address] [place] [address] 06/08/2025 9:15 AM CDT Office Visit [facility] Hepatology Clinic [address] [phone] Jignesh Mathias MD [address] [place] [address] 11/05/2025 1:45 PM CDT Office Visit [facility] Dermatology Clinic [address] 3rd [place] [address] Gavi Niteo PA-C Dermatology [address] [place] [address] 31852 documented as of this encounter Goals Goal [...] documented as of this encounter Care Teams Kiln Fireman Relationship Specialty Start Date End Date Rio Jaquez MD [address] [place] [address]891 PCP - General Family Practice 12/02/10 07/13/24 Omar Carmona MD [address] [place] [address] 316815 PCP - General Family Medicine 07/14/24 Barry Kilpatrick MD [address] [place] [address] [id number] [place] [address] Neurology 07/19/14 Michelle Henderson I, RN Nurse Coordinator Neurology 07/19/14 Rio Jaquez MD [address] [place] [address] 29720 Family Practice 10/15/14 Jemima Jaramillo MD edge finisher 11/20/14 Kelley Chin, TANIA [address] 366375 Nurse Coordinator Cardiology 11/04/15 Sydnee Saleem MD 420 [facility] 508 [place] [address] Cardiology 11/04/15 Karlene Moya MD [address] [place] [address]507 MD Ophthalmology 06/24/17 Wilbert Quintero, OD [address] [place] [address] 706915 Optometry 06/24/17 Rod Gauthier DPM [address] [place] [address] 30926 Cut Off Saw Operator Metal Primary Podiatric Medicine 06/21/18 Nallely Hogue, TANIA Registered Nurse 02/20/19 11/23/22 Jan Mahmood MD [address] [place] [address] 147145 Gastroenterology 11/05/20 Brandt Quintana MD [address] [place] [address] Resident 11/05/20 Jan Mahmood MD [address] [place] [address] Assigned Gastroenterology Provider 12/01/20 Rio Jaquez MD 9 [facility] 4 [place] [address] Assigned PCP 11/17/20 09/30/24 Dom Eason MD [address] [place] [address] 353 [place] [address] Internal Medicine 12/02/20 Jayla Plaza, RN Specialty Water Leak Repairer Hepatology 01/09/21 02/13/24 Sydnee Saleem MD [address] [place] [address] [place] [address] 10922 Assigned Heart and Vascular Provider 02/02/21 07/24/22 Jaimie Vernon, TANIA Specialty Water Leak Repairer Cardiology 10/28/21 Ruth Riddle DPM, Podiatry/Foot and Ankle Surgery 51706 [facility] 300 [place] [address] Assigned Musculoskeletal Provider 11/30/21 09/30/23 Marquise Hanley MD [address] [place] [address] 464175 Endocrinology, Diabetes, and Metabolism 03/05/22 Vlad Ramey MD [address] [place] [address] 688805 Cardiovascular Disease 05/07/22 Joesph Crowe MD [address] [place] [address] 34776 Surgery 05/07/22 Luis Arrington MD [address] [place] [address] 58013 Assigned Neuroscience Provider 05/16/22 05/14/23 Michelle Padilla, RN Specialty Water Leak Repairer Cardiology 07/03/22 Vlad Rmaey MD 9 [place] [address] Assigned Heart and Vascular Provider 07/25/22 05/28/23 Marquise Hanley MD [address] [place] [address] 97642 Assigned Endocrinology Provider 08/15/22 Dom Eason MD 717 [facility] MICHAEL 353 [place] [address] Assigned Nephrology Provider 11/28/22 02/19/23 Wagner Oliver MD [address] [place] [address] Critical Care 12/15/22 Laura Epperson NP 7 [facility] 1932 [place] [address] Assigned Nephrology Provider 02/20/23 08/30/24 Thom Taveras MD [address], [address] [place] [address] Assigned Cancer Care Provider 02/06/23 08/20/23 Joesph Crowe MD [address] [place] [address] 79562 Surgery 03/17/23 Joeshp Crowe MD [address] [place] [address] 43264 Assigned Surgical Provider 04/03/23 09/30/24 Adonay Haq MD 9 [place] [address] Internal Medicine 06/14/23October, Denilson Jackson MD [address] [facility] [address] [place] [address] Assigned Heart and Vascular Provider 05/29/23 11/28/24 Jason Alvares MD [address] 246725 Assigned Neuroscience Provider 05/15/23 11/28/24 Ruth Riddle, DPM, Podiatry/Foot and Ankle Surgery [address] [place], [place] 460347 Assigned Musculoskeletal Provider 10/22/23 Jignesh Mathias MD [address] [place] [address] 481375 Gastroenterology 09/25/24 Adonay Haq MD [address] [place] [address]68 Assigned PCP 10/01/24 12/28/24 Omar Carmona MD [address] [place] [address] 01859 Assigned PCP 12/29/24 Jason Alvares MD [address] 682485 Assigned Neuroscience Provider 12/29/24 Jignesh Mathias MD [address] [place] [address] 14260 Assigned Surgical Provider 12/29/24 Ayad Lopez, PhD LP [address] [place] [address] 828965 Assigned Behavioral Health Provider 02/28/25 Gavi Nieto PANavinC [address] [place] [address] 525345 Physician Criminal Defense Attorney Dermatology 03/19/25 documented as of this encounter
--- OUTSIDE RECORDS SUMMARY | 2025-03-24 20:31 | XMS_ITS | Encounter Summary ---
Author Organization [facility] Address [address] [place] [address] Care Team Providers Care Guidance And Control System Engineer Name Role Phone Rio Jaquez MD Primary Care Provider Barry Kilpatrick MD Unavailable Michelle Henderson RN Unavailable [phone] Rio Jaquez MD Unavailable [phone] Jemima Jaramillo MD Unavailable Unavai Kelley Bautista RN Unavailable [phone] Sydnee Saleem MD Unavailable [phone] Karlene Moya MD Unavailable +[phone] Wilbert Quintero OD Unavailable [phone] Rod Gauthier DPM Unavailable [phone] Nallely Hogue RN Unavailable Unavailable Larisa Vargas RN Unavailable Unavailable Francisco Lott MD Unavailable +[phone] Greg Ortega MD Unavailable [phone] Jan Mahmood MD Unavailable +[phone] Brandt Quintana MD Unavailable [phone] Jan Mahmood MD Unavailable Rio Jaquez [...] Unavailable [phone] Thom Taveras MD Unavailable +[phone] Joesph Crowe MD Unavailable [phone] Joesph Crowe MD Unavailable [phone] Adonay Haq MD Unavailable [phone] Denilson Srinivasan MD Unavailable [phone] Jason Alvares MD Unavailable Ruth RiddleM, Podiatry /Foot and Ankle Surgery Unavailable Omar Carmona MD Primary Care Provider Jignesh Mathias MD Unavailable Adonay Haq MD Unavailable [phone] Omar Carmona MD Unavailable Jason Alvares MD Unavailable Jignesh Mathias MD Unavailable Ayad Lopez PhD LP Unavailable [phone] Gavi Nieto-C Unavailable +[phone] Encounter Details Date Type Department Care Team (Late st Contact Info) Description 03/01/2021 [facility] [address] [address] Veronica Herr Social History Tobacco Use Types Packs/Day Years Used Date Smoking Tobacco: Former Cigarettes 0.5 38.2 0 08/09/1982 - 10/11/2020 Smokeless Tobacco: Never Alcohol Use Standard Drinks/Week Comments Not Currently 0 (1 standard drink = 0.6 oz pur e alcohol) Last drink 10/11/2020 PHQ-2 Answer Date Recorded PHQ-2 Score 0 01/30/2021 Comments No Sex and Gender Information Value Date Recorded Sex Assigned at Female 09/12/2020 12:05 PM SLOT MACHINE MECHANIC Legal Sex Female 3:26 AM SLOT MACHINE MECHANIC Gender Identity Female 09/12/2020 12:05 PM SLOT MACHINE MECHANIC Sexual Orientation Straight 12/19/2021 10 :44 AM CDT Occupation Industry Job Start Date Job End Date on disability for FMS Not on file Not on file Not on file COVID-19 Exposure Response Date Recorded In the last month, have you been in contact with someone who was confirmed or suspected to have Coronavirus / COVID-19? No / Unsure 02/28/2021 7:25 AM CDT documented as of this encounter Plan of Treatment Upcoming Encounters Date Type Department Care Team (Late st Contact Info) Description 03/26/2025 11:00 AM CDT Therapy Visit [facility] 150 [place] [phone] Jason Alvares MD [address] [place] [address] Chaya Castillo OTR [address] [address] 03/29/2025 10:30 AM CDT Therapy Visit [facility] Specialty [place] [address] [facility] [address] [place] [phone] [place] [address] [facility] 300 [place], [place] 012817 04/02/2025 11:00 AM CDT Therapy Visit [address] [phone] Jason Alvares MD [address] [place] [address] Chaya Castillo OTR [address] [address] 04/11/2025 12:30 PM CDT Office Visit [facility] [address] 4th [place] [address] Omar Carmona MD [address] [place] [address] 023695 04/12/2025 2:15 PM CDT Therapy Visit [address] [place] [address] Jason Alvares MD [address] [address] Chaya Castillo, OTR [facility] 150 [place] [address] 04/16/2025 11:00 AM CDT Therapy Visit [facility] [place] [address] [place] [address] Jason Alvares MD [address] [place] [address] Chaya Castillo OTR [facility] 150 [place] [address] 04/23/2025 11:00 AM CDT Therapy [facility] [place] [address] Jason Alvares MD [address] [place] [address] Chaya Castillo OTR [facility] 150 [facility] [place] [address] 04/30/2025 11:00 AM CDT Therapy Visit [facility] [place] [address] [place] [address] Jason Alvares MD [address] [place] [address] Chaya Castillo OTR [facility] 150 [place] [address] 05/15/2025 12:30 PM CDT Office Visit [address] [address] Marquise Hanley MD [address] [place] [address] 06/08/2025 9:15 AM CDT Office Visit [facility] Hepatology [facility] [address] [phone] Jignesh Mathias MD [address] [place] [address] 078635 11/05/2025 1:45 PM CDT Office Visit [facility] Dermatology [address] 3rd [place] [phone] Gavi Nieto PANavinC Dermatology [address] [place] [address] documented as of this encounter Goals Goal [...] Depression Total Score: 12 021 9:43 AM SLOT MACHINE MECHANIC documented as of this encounter Care Teams Guidance And Control System Engineer Relationship Specialty Start Date End Date Rio Jaquez MD [address] [place] [address] PCP - General Family Practice 12/02/10 07/13/24 Omar Carmona MD [address] [place] [address] 422865 PCP - General Family Medicine 07/14/24 Barry Kilpatrick MD [address] [place] [address] [id number] [place] 349165 Neurology 07/19/14 Michelle Henderson I, RN Nurse Coordinator Neurology 07/19/14 Rio Jaquez MD [address] [place] [address] 4 [place], [place] 370225 Family Practice 10/15/14 Jemima Jaramillo MD technical analyst 11/20/14 Kelley Chin, TANIA [facility] [address] [place] [address] 865905 Nurse Coordinator Cardiology 11/04/15 Sydnee Saleem MD [address] [place] [address] 508 [place], [place] 079915 Cardiology 11/04/15 Karlene Moya MD [address] [place] [address] 646935 Ophthalmology 06/24/17 Wilbert Quintero, OD [address] [place] [address] Optometry 06/24/17 Rod Gauthier DPM [address] [place] [address] Primary Podiatric Medicine 06/21/18 Nallely Hogue, RN Registered Nurse 02/20/19 11/23/22 Larisa Vargas, TANIA Specialty Compressor Stations Superintendent Cardiology 04/18/19 03/06/22 Francisco Lott MD 515 [facility] 88 [place] [address] Assigned Rheumatology Provider 05/31/20 12/13/21 Greg Ortega MD 909 [place], [place] 256645 Assigned Surgical Provider 06/23/20 12/06/21 Jan Mahmood MD 516 [facility] 2A [place], [place] 189645 Gastroenterology 11/05/20 Brandt Quintana MD 1414 [place] [address] Resident 11/05/20 Jan Mahmood MD 6 [facility] 2A [place] [address] Assigned Gastroenterology Provider 12/01/20 Rio Jaquez MD 909 [facility] 4 [place], [place] 146115 Assigned PCP 11/17/20 09/30/24 Dom Eason MD 717 [facility] 353 [place] [address] Internal Medicine 12/02/20 Jayla Plaza, RN Specialty Compressor Stations Superintendent Hepatology 01/09/21 02/13/24 Sydnee Saleem MD 6594 [facility] [address] [place] [address] Assigned Heart and Vascular Provider 02/02/21 07/24/22 Phan Coello MD Assigned Neuroscience Provider 02/21/21 11/22/21 Cristian Barragan MD 2945 [place], [place] [phone] Assigned Infectious Disease Provider 02/21/21 03/06/22 Dom Eason MD [address] [place] [address] 353 [place], [place] 022764 Assigned Nephrology Provider 04/20/21 01/02/22 Jaimie Vernon, TANIA Specialty Compressor Stations Superintendent Cardiology 10/28/21 Ruth Riddle DPM, Podiatry/Foot and Ankle Surgery [address] [facility] 300 [place], [place] 907917 Assigned Musculoskeletal Provider 11/30/21 09/30/23 Luis Arrington MD 909 [place], [place] 710725 Assigned Neuroscience Provider 11/23/21 01/02/22 Jason Alvarse MD [address] [place] [address] 295 [place], [place] 272365 Assigned Neuroscience Provider 01/03/22 05/15/22 Marquise Hanley MD [address] [place] [address] Endocrinology, Diabetes, and Metabolism 03/05/22 Vlad Ramey MD [address] [place] [address] Cardiovascular Disease 05/07/22 Joesph Crowe MD [address] [place] [address] Surgery 05/07/22 Luis Arrington MD [address] [place] [address] Assigned Neuroscience Provider 05/16/22 05/14/23 Michelle Padilla RN Specialty Compressor Stations Superintendent Cardiology 07/03/22 Vlad Ramey MD [address] [place] [address] Assigned Heart and Vascular Provider 07/25/22 05/28/23 Marquise Hanley MD [address] [place] [address] Assigned Endocrinology Provider 08/15/22 Dom Eason MD [address] [place] [address] Assigned Nephrology Provider 11/28/22 02/19/23 Wagner Oliver MD [address] [place] [address] Critical Care 12/15/22 Laura Epperson NP 717 [facility] 1932 [place] [address] Assigned Nephrology Provider 02/20/23 08/30/24 Thom Taveras MD [address] [place] [address] Assigned Cancer Care Provider 02/06/23 08/20/23 Joesph Crowe MD 909 [place] [address] Surgery 03/17/23 Joesph Crowe MD 909 [place] [address] Assigned Surgical Provider 04/03/23 09/30/24 Adonay Haq MD 909 [place], [place] 354595 Internal Medicine 06/14/23OctoberDenilson MD [address] [facility] [address] [place], [place] 909725 Assigned Heart and Vascular Provider 05/29/23 11/28/24 Jason Alvares MD 420 [facility] 295 [place] [address] Assigned Neuroscience Provider 05/15/23 11/28/24 Ruth Riddle, DPM, Podiatry/Foot and Ankle Surgery [address] [facility] 300 [place] [address] Assigned Musculoskeletal Provider 10/22/23 Jignesh Mathias MD [address] [place] [address] Gastroenterology 09/25/24 Adonay Haq MD [address] [place] [address] 388215 Assigned PCP 10/01/24 12/28/24 Omar Carmona MD [address] [place] [address] 095635 Assigned PCP 12/29/24 Jason Alvares MD [address] [place] [address] 306005 Assigned Neuroscience Provider 12/29/24 Jignesh Mathias MD [address] [place] [address] 715575 Assigned Surgical Provider 12/29/24 Ayad Lopez, PhD LP [address] [place] [address] 887475 Assigned Behavioral Health Provider 02/28/25 Gavi Nieto PA-C [address] [place] [address] 884175 Physician Communications Programmer Dermatology 03/19/25 documented as of this encounter
--- OUTSIDE RECORDS SUMMARY | 2025-03-24 20:31 | XMS_ITS | Clinical Summary ---
Author Organization [facility] Facility Address [address] [place] [address] Care Team Providers Care Hydroelectric Plant Structural Engineer Name Role Phone Unavailable Primary Care Provider Unavailabl e Social History Tobacco Use Types Packs/Day Years Used Date Smoking Tobacco: Never Assessed Comments Unknown Sex and Gender Information Value Date Recorded Sex Assigned at Not on file Legal Sex Female 4:22 PM EDT Gender Identity Not on file Sexual Orientation Not on file Plan of Treatment Health Maintenance Due Date Last Done Comments Breast Cancer Screening 1970 Hepatitis B Vaccine (1 of 3 - 19+ 3-dose series) 08/14 Colorectal Cancer Screening: Annual FOBT 2018 Colorectal Cancer Screening: Colonoscopy 2018 Colorectal Cancer Screening: Sigmoidoscopy 2018 Pneumococcal Vaccine: 50+ Years (1 of 1 - PCV) 020 Influenza Vaccine (#1) 2025 Insurance JASON MIGUEL [id number] Medicare [facility]
--- OUTSIDE RECORDS SUMMARY | 2025-03-24 20:31 | XMS_ITS | Encounter Summary ---
Author Organization [facility] Address [address] [place] [address] Care Team Providers Care Conference Service Coordinator Name Role Phone Rio Jaquez MD Primary Care Provider Barry Kilpatrick MD Unavailable Michelle Henderson RN Unavailable [phone] Rio Jaquez MD Unavailable [phone] Jemima Jaramillo MD Unavailable Unavai Kelley Bautista RN Unavailable [phone] Sydnee Saleem MD Unavailable [phone] Karlene Moya MD Unavailable [phone] Wilbert Quintero OD Unavailable +[phone] Rod Gauthier DPM Unavailable [phone] Nallely Hogue RN Unavailable Unavailable Larisa Vargas RN Unavailable Unavailable Francisco Lott MD Unavailable [phone] Greg Ortega MD Unavailable [phone] Jan Mahmood MD Unavailable [phone] Brandt Quintana MD Unavailable [phone] Jan Mahmood MD Unavailable Rio Jaquez [...] MD Unavailable Joesph Crowe MD Unavailable [phone] Luis Arrington MD Unavailable Michelle Padilla RN Unavailable Unavaila ble Vlad Ramey MD Unavailable Marquise Hanley MD Unavailable [phone] Dom Eason MD Unavailable Wagner Oliver MD Unavailable Laura Epperson NP Unavailable [phone] Thom Taveras MD Unavailable Joesph Crowe MD Unavailable [phone] Joesph Crowe MD Unavailable [phone] Adonay Haq MD Unavailable [phone] Denilson Srinivasan MD Unavailable [phone] Jason Alvares MD Unavailable Ruth RiddleM, Podiatry /Foot and Ankle Surgery Unavailable Omar Carmona MD Primary Care Provider Jignesh Mathias MD Unavailable Adonay Haq MD Unavailable [phone] Omar Carmona MD Unavailable Jason Alvares MD Unavailable Jignesh Mathias MD Unavailable Ayad Lopez PhD LP Unavailable [phone] Gavi Nieto-C Unavailable [phone] Encounter Details Date Type Department Care Team (Late st Contact Info) Description 02/07/2021 [facility] [address] [phone] Phan Coello MD Social History Tobacco Use [...] Sex Assigned at Female 09/12/2020 12:05 PM FRUIT PICKER MACHINE 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 No / Unsure 02/06/2021 3:35 PM CDT documented as of this encounter Plan of Treatment Upcoming Encounters Date Type Department Care Team (Late st Contact Info) Description 03/26/2025 11:00 AM CDT Therapy Visit [address] [address] Jason Alvares MD [address] [place] [address] Chaya Castillo, OTR [address] [address] 03/29/2025 10:30 AM CDT Therapy Visit [facility] [address] [facility] [address] [place] [phone] [place] [address] [facility] 300 [place], [place] 812507 04/02/2025 11:00 AM CDT Therapy Visit [address] [address] Jason Alvares MD [address] [place] [address] Chaya Castillo OTR [address] [address] 04/11/2025 12:30 PM CDT Office Visit [facility] [address] 4th [place] [phone] Omar Carmona MD [address] [place] [address] 04/12/2025 2:15 PM CDT Therapy Visit [facility] [address] [place] [address] Jason Alvares MD [address] [place] [address] Chaya Castillo, OTR [facility] 150 [place] [address] 04/16/2025 11:00 AM CDT Therapy Visit [facility] [address] [place] [address] Jason Alvares MD [address] [place] [address] Chaya Castillo OTR [facility] 150 [facility] [place] [address] 04/23/2025 11:00 AM CDT Therapy Visit [facility] 150 [facility] [place] [address] Jason Alvares MD [address] [place] [address] Chaya Catsillo OTR [facility] 150 [facility] [place] [address] 04/30/2025 11:00 AM CDT Therapy Visit [facility] [address] [place] [address] Jason Alvares MD [address] [place] [address] Chaya Castillo OTR [facility] [address] [place] [address] 05/15/2025 12:30 PM CDT Office Visit [address] [phone] Marquise Hanley MD [address] [place] [address] 06/08/2025 9:15 AM CDT Office Visit [facility] Hep[facility] [address] [phone] Jignesh Mathias MD [address] [place] [address] 021705 11/05/2025 1:45 PM CDT Office Visit [facility] Dermatology [address] 3rd [place] [phone] Gavi Nieto PANavinC Dermatology [address] [place] [address] documented as of this encounter Goals Goal [...] Depression Total Score: 12 021 9:43 AM FRUIT PICKER MACHINE OPERATOR documented as of this encounter Care Teams Conference Service Coordinator Relationship Specialty Start Date End Date Rio Jaquez MD [address] [place] [address] PCP - General Family Practice 12/02/10 07/13/24 Omar Carmona MD [address] [place] [address] 243675 PCP - General Family Medicine 07/14/24 Barry Kilpatrick MD [address] [place] [address] [id number] [place], [place] 400475 Neurology 07/19/14 Michelle Henderson I, RN Nurse Coordinator Neurology 07/19/14 Rio Jaquez MD [address] [place] [address] 4 [place], [place] 926705 Family Practice 10/15/14 Jemima Jaramillo MD environmental health manager 11/20/14 Kelley Chin, T[facility] 909 [place], [place] 398415 Nurse Coordinator Cardiology 11/04/15 Sydnee Saleem MD [address] [place] [address] 508 [place], [place] 841065 Cardiology 11/04/15 Karlene Moya MD [address] [place] [address] 868695 Ophthalmology 06/24/17 Wilbert Quintero, OD [address] [place] [address] Optometry 06/24/17 Rod Gauthier DPM [address] [place] [address] Physical Security Engineer Primary Podiatric Medicine 06/21/18 Nallely Hogue, RN Registered Nurse 02/20/19 11/23/22 Larisa Vargas, RN Specialty Instrumentation Technician Cardiology 04/18/19 03/06/22 Francisco Ltot MD 515 [facility] 88 [place] [address] Assigned Rheumatology Provider 05/31/20 12/13/21 Greg Ortega MD 909 [place] [address] Assigned Surgical Provider 06/23/20 12/06/21 Jan Mahmood MD [address] [place] [address] [place] [address] Gastroenterology 11/05/20 Brandt Quintana MD 1414 [place] [address] Resident 11/05/20 Jna Mahmood MD [address] [place] [address] [place] [address] Assigned Gastroenterology Provider 12/01/20 Rio Jaquez MD 909 [facility] 4 [place], [place] 891315 Assigned PCP 11/17/20 09/30/24 Dom Eason MD 717 [facility] 353 [place] [address] Internal Medicine 12/02/20 Jayla Plaza, RN Specialty Instrumentation Technician Hepatology 01/09/21 02/13/24 Sydnee Saleem MD 6583 [facility] [address] [place] [address] [phone] Assigned Heart and Vascular Provider 02/02/21 07/24/22 Phan Coello MD Assigned Neuroscience Provider 02/21/21 11/22/21 Cristian Barragan MD 2945 [place], [place] [phone] Assigned Infectious Disease Provider 02/21/21 03/06/22 Dom Eason MD [address] [place] [address] 353 [place], [place] 769634 Assigned Nephrology Provider 04/20/21 01/02/22 Jaimie Vernon, TANIA Specialty Instrumentation Technician Cardiology 10/28/21 Ruth Riddle, DPM, Podiatry/Foot and Ankle Surgery [address] [facility] 300 [place], [place] 289567 Assigned Musculoskeletal Provider 11/30/21 09/30/23 Luis Arrington MD 909 [place], [place] 723625 Assigned Neuroscience Provider 11/23/21 01/02/22 Jason Alvares MD 420 [facility] 295 [place], [place] 357745 Assigned Neuroscience Provider 01/03/22 05/15/22 Marquise Hanley MD [address] [place] [address] Endocrinology, Diabetes, and Metabolism 03/05/22 Vlad Ramey MD [address] [place] [address] 71358 Cardiovascular Disease 05/07/22 Joesph Crowe MD [address] [place] [address] 18[address] Surgery 05/07/22 Luis Arrington MD [address] [place] [address] Assigned Neuroscience Provider 05/16/22 05/14/23 Michelle Padilla RN Specialty Instrumentation Technician Cardiology 07/03/22 Vlad Ramey MD [address] [place] [address] 45467 Assigned Heart and Vascular Provider 07/25/22 05/28/23 Marquise Hanley MD [address] [place] [address] 75[address] Assigned Endocrinology Provider 08/15/22 Dom Eason MD [address] [place] [address] Assigned Nephrology Provider 11/28/22 02/19/23 Wagner Oliver MD [address] [place] [address] Critical Care 12/15/22 Laura Epperson NP 717 [facility] 1932 [place] [address] Assigned Nephrology Provider 02/20/23 08/30/24 Thom Taveras MD [address] [place] [address] Assigned Cancer Care Provider 02/06/23 08/20/23 Joesph Crowe MD [address] [place] [address]79 MD Surgery 03/17/23 Joesph Crowe MD [address] [place] [address] Assigned Surgical Provider 04/03/23 09/30/24 Adonay Haq MD 909 [place], [place] 828375 Internal Medicine 06/14/23OctoberDenilson MD [address] [facility] [address] [place] [address] Assigned Heart and Vascular Provider 05/29/23 11/28/24 Jason Alvares MD 420 [facility] 295 [place] [address] Assigned Neuroscience Provider 05/15/23 11/28/24 Ruth Riddle DPM, Podiatry/Foot and Ankle Surgery [address] 300 [place] [address] Assigned Musculoskeletal Provider 10/22/23 Jignesh Mathias MD [address] [place] [address] 138385 Gastroenterology 09/25/24 Adonay Haq MD [address] [place] [address] 836965 Assigned PCP 10/01/24 12/28/24 Omar Carmona MD [address] [place] [address] 654515 Assigned PCP 12/29/24 Jason Alvares MD [address] [place] [address] 519345 Assigned Neuroscience Provider 12/29/24 Jignesh Mathias MD [address] [place] [address] 180415 Assigned Surgical Provider 12/29/24 Ayad Lopez, PhD LP [address] [place] [address] 621285 Assigned Behavioral Health Provider 02/28/25 Gavi Nieto PA-C [address] [place] [address] 595865 Physician Peoplesoft Consultant Dermatology 03/19/25 documented as of this encounter
--- OUTSIDE RECORDS SUMMARY | 2025-03-24 20:31 | XMS_ITS | Encounter Summary ---
Author Organization [facility] Address [address] [place] [address] Care Team Providers Care Bioprocessing Manufacturing Technician Name Role Phone Elsewhere, Pcp Primary Care Provider Unavailabl e Reason for Visit * Reason Comments Med Refill Encounter Details Date Type Department Care Team (Late st Contact Info) Description 03/07/2025 Refill Department of Family Medicine, [facility], in [address] [phone] Mahsa Gipson M.D. [address] [place] [address] [phone] Med Refill Social History Tobacco Use Types Packs/Day Years Used Date Smoking Tobacco: Every Day Cigarettes 0.5 40.7 Started: 08/09/1985 Passive Smoke Exposure: Never Smokeless Tobacco: Never Alcohol Use Standard Drinks/Week Comments Not Currently 0 (1 standard drink = 0.6 oz pur e alcohol) [facility] Utilities Answer Date Recorded In the [...] Sex Assigned at Female 09/14/2023 4:26 PM ADVANCED MANUFACTURING ENGINEER Legal Sex Female 11:56 AM ADVANCED MANUFACTURING ENGINEER Gender Identity Female 09/14/2023 4:26 PM ADVANCED MANUFACTURING ENGINEER Sexual Orientation Straight 09/14/2023 4: 26 PM ADVANCED MANUFACTURING ENGINEER documented as of this encounter Plan of Treatment Not on file documented as of this encounter Visit Diagnoses Not on filedocumented in this encounter Additional Health Concerns Assessment Noted Time PHQ-9 Depression Total Score: 12 025 10:01 AM CDT documented as of this encounter Care Teams Bioprocessing Manufacturing Technician Relationship Specialty Start Date End Date Elsewhere, Pcp PCP - General Internal Medicine 12/28/24 documented as of this encounter
--- OUTSIDE RECORDS SUMMARY | 2025-03-24 20:31 | XMS_ITS | Encounter Summary ---
Author Organization [facility] Address [address] [place] [address] Care Team Providers Care Occ Therapist Name Role Phone Rio Jaquez MD Primary Care Provider Barry Kilpatrick MD Unavailable Michelle Henderson RN Unavailable [phone] Rio Jaquez MD Unavailable [phone] Jemima Jaramillo MD Unavailable Unavai Kelley Bautista RN Unavailable [phone] Sydnee Saleem MD Unavailable [phone] Karlene Moya MD Unavailable [phone] Wilbert Quintero OD Unavailable [phone] Rod Gauthier DPM Unavailable [phone] Nallely Hogue RN Unavailable Unavailable Larisa Vargas RN Unavailable Unavailable Francisco Lott MD Unavailable [phone] Greg Ortega MD Unavailable [phone] Jan Mahmood MD Unavailable [phone] Brandt Quintana MD Unavailable [phone] Jan Mahmood MD Unavailable Rio Jaquez [...] MD Unavailable Joesph Crowe MD Unavailable [phone] Joesph Crowe MD Unavailable [phone] Adonay Haq MD Unavailable [phone] Denilson Srinivasan MD Unavailable Jason Alvares MD Unavailable Ruth RiddleM, Podiatry /Foot and Ankle Surgery Unavailable Omar Carmona MD Primary Care Provider [phone] Jignesh Mathias MD Unavailable Adonay Haq MD Unavailable [phone] Omar Carmona MD Unavailable Jason Alvares MD Unavailable Jignesh Mathias MD Unavailable Ayad Lopez PhD LP Unavailable [phone] Gavi Nieto-C Unavailable [phone] Encounter Details Date Type Department Care Team (Latest Contact Info) Description 02/25/2021 [facility] Medical Advice [facility] Primary Care Clinic [address] [place] [address] Rio Jaquez MD [address] [place] [address] Subdural hematoma (H) (Primary Dx); Diffuse connective tissue disease; Physical deconditioning Social History Tobacco Use Types Packs/Day Years [...] Sex Assigned at Female 09/12/2020 12:05 PM 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 RECOVERY OPERATOR Legal Sex Female 3:26 AM OIL RECOVERY OPERATOR Gender Identity Female 09/12/2020 12:05 PM OIL RECOVERY OPERATOR Sexual Orientation Straight 12/19/2021 10 :44 [...] Description 03/26/2025 11:00 AM CDT Therapy Visit [facility] [address] [place] [phone] Jason Alvares MD [address] [place] [address] [phone] Chaya Castillo, OTR [address] [address] 03/29/2025 10:30 AM CDT Therapy Visit [facility] [address] [facility] [address] [place] [address] [place] [address] MICHAEL [address] [place], [place] [phone] 04/02/2025 11:00 AM CDT Therapy Visit [facility] 150 [place] [phone] Jason Alvares MD [address] [place] [address] 346005 Chaya Castillo OTR [address] [address] 04/11/2025 12:30 PM CDT Office Visit [facility] Primary Care Clinic [address] 4th [place] [phone] Omar Carmona MD 909 [place] [address] 04/12/2025 2:15 PM CDT Therapy Visit [facility] [place] [address] [facility] [place] [address] Jason Alvares MD [address] [place] [address] Chaya Castillo, OTR [facility] 150 [place] [address] 04/16/2025 11:00 AM CDT [facility] 150 [place] [address] Jason Alvares MD [address] [place] [address] Chaya Castillo OTR [facility] 150 [place] [address] 04/23/2025 11:00 AM CDT [facility] 150 [place] [phone] Jason Alvares MD [address] [place] [address] Chaya Castillo OTR [facility] 150 [place] [address] 04/30/2025 11:00 AM CDT Therapy [facility] 150 [place] [phone] Jason Alvares MD [address] [place] [address] CastilloChaya, OTR [address] [address] 05/15/2025 12:30 PM CDT Office Visit [address] [phone] Marquise Hanley MD [address] [place] [address] 06/08/2025 9:15 AM CDT Office Visit [facility] Hepatology Clinic [address] [phone] Jignesh Mathias MD [address] [place] [address] 142915 11/05/2025 1:45 PM CDT Office Visit [facility] Dermatology [address] 3rd [place] [address] Gavi Nieto PAJimmy Dermatology [address] [place] [address] documented as of this encounter Goals Goal Patient Goal Type Associated Problems Recent Progress Patient-Stated? Author Quit smoking / using tobacco Lifestyle Rio Will MD Note: 06/25/14 planned quit date documented as of this encounter Visit Diagnoses Diagnosis Subdural hematoma (H)- Primary Subdural hemorrhage Diffuse connective tissue disease Unspecified diffuse connective tissue disease Physical deconditioning Debility, unspecified documented in this encounter Additional Health Concerns Infection Onset Date Last Indicated Resolved Time MRSA Comment:Added from external infection. 10/23/2020 10/21/2020 Rule Out COVID-19 02/09/2024 02/09/2024 02/09/2024 1:52 AM CDT Assessment Noted Time PHQ-9 Depression Total Score: 12 021 9:43 AM OIL RECOVERY OPERATOR documented as of this encounter Care Teams Occ Therapist Relationship Specialty Start Date End Date Rio Jaquez MD [address] [place] [address] PCP - General Family Practice 12/02/10 07/13/24 Omar Carmona MD [address] [place] [address] PCP - General Family Medicine 07/14/24 Barry Kilpatrick MD [address] [place] [address] [id number] [place], [place] 612915 Neurology 07/19/14 Michelle Henderson RN Nurse Coordinator Neurology 07/19/14 Rio Jaquez MD [address] [place] [address] 985565 Family Practice 10/15/14 Jemima Jaramillo MD garment folder 11/20/14 Kelley Chin, TANIA [address] 559425 Nurse Coordinator Cardiology 11/04/15 Sydnee Saleem MD [address] [facility] 508 [place], [place] 838565 Cardiology 11/04/15 Karlene Moya MD [address] [place] [address] 767775 Ophthalmology 06/24/17 Wilbert Quintero, OD [address] [place] [address]81 Optometry 06/24/17 Rod Gauthier DPM [address] [place] [address]64 [facility] Primary Podiatric Medicine 06/21/18 Nallely Hogue, RN Registered Nurse 02/20/19 11/23/22 Larisa Vargas, TANIA Specialty Pediatric Psychiatrist Cardiology 04/18/19 03/06/22 Francisco Lott MD [address] [place] [address]15 Assigned Rheumatology Provider 05/31/20 12/13/21 Greg Ortega MD [address] [place] [address] Assigned Surgical Provider 06/23/20 12/06/21 Jan Mahmood MD [address] [place] [address] 89546 Gastroenterology 11/05/20 Brandt Quintana MD [address] [place] [address] Resident 11/05/20 Jan Mahmood MD [address] [place] [address] 44615 Assigned Gastroenterology Provider 12/01/20 Rio Jaquez MD [address] [place] [address] 211145 Assigned PCP 11/17/20 09/30/24 Dom Eason MD [address] [place] [place] [address] 56867 Internal Medicine 12/02/20 Jayla Plaza, RN Specialty Pediatric Psychiatrist Hepatology 01/09/21 02/13/24 Sydnee Saleem MD [address]50 [facility] [address] [place] [address] Assigned Heart and Vascular Provider 02/02/21 07/24/22 Phan Coello MD Assigned Neuroscience Provider 02/21/21 11/22/21 [place] [address] [place] [address] Assigned Infectious Disease Provider 02/21/21 03/06/22 Dom Eason MD [address] [place] [place] [address] 45500 Assigned Nephrology Provider 04/20/21 01/02/22 Jaimie Vernon, RN Specialty Pediatric Psychiatrist Cardiology 10/28/21 Ruth Riddle DPM, Podiatry/Foot and Ankle Surgery [address] [address] Assigned Musculoskeletal Provider 11/30/21 09/30/23 Luis Arrington MD [address] [place] [address] 29996 Assigned Neuroscience Provider 11/23/21 01/02/22 Jason Alvares MD [address] [place] [address] 70498 Assigned Neuroscience Provider 01/03/22 05/15/22 Marquise Hanley MD [address] [place] [address] Endocrinology, Diabetes, and Metabolism 03/05/22 Vlad Ramey MD [address] [place] [address] 155975 Cardiovascular Disease 05/07/22 Joesph Crowe MD [address] [place] [address] 25529 Surgery 05/07/22 Luis Arrington MD [address] [place] [address] 343875 Assigned Neuroscience Provider 05/16/22 05/14/23 Michelle Padilla RN Specialty Pediatric Psychiatrist Cardiology 07/03/22 Vlad Ramey MD [address] [place] [address] 681505 Assigned Heart and Vascular Provider 07/25/22 05/28/23 Marquise Hanley MD [address] [place] [address] 37927 Assigned Endocrinology Provider 08/15/22 Dom Eason MD [address] [place] [place] [address] 99661 Assigned Nephrology Provider 11/28/22 02/19/23 Wagner Oliver MD [address] [place] [address] Critical Care 12/15/22 Laura Epperson NP 717 [facility] 1932 [place] [address] Assigned Nephrology Provider 02/20/23 08/30/24 Thom Taveras MD [address] [place] [address] R105 [place] [address] Assigned Cancer Care Provider 02/06/23 08/20/23 Joesph Crowe MD [address] [place] [address] 89103 Surgery 03/17/23 Joesph Crowe MD [address] [place] [address] 90825 Assigned Surgical Provider 04/03/23 09/30/24 Adonay Haq MD [address] [place] [address] 41993 Internal Medicine 06/14/23October, Denilson Jackson MD [address] [facility] [address] [place] [address] Assigned Heart and Vascular Provider 05/29/23 11/28/24 Jason Alvares MD 420 [facility] 295 [place] [address] Assigned Neuroscience Provider 05/15/23 11/28/24 Ruth Riddle DPM, Podiatry/Foot and Ankle Surgery [address] [place] [address] Assigned Musculoskeletal Provider 10/22/23 Jignesh Mathias MD [address] [place] [address] 11865 Gastroenterology 09/25/24 Adonay Haq MD [address] [place] [address] 273715 Assigned PCP 10/01/24 12/28/24 Omar Carmona MD [address] [place] [address] 189575 Assigned PCP 12/29/24 Jason Alvares MD [address] [place] [address] 409155 Assigned Neuroscience Provider 12/29/24 Jignesh Mathias MD [address] [place] [address] 297405 Assigned Surgical Provider 12/29/24 Ayad Lopez, PhD LP [address] [place] [address] 646165 Assigned Behavioral Health Provider 02/28/25 Gavi Nieto PA-C [address] [place] [address] 600015 Physician Business Continuity Manager Dermatology 03/19/25 documented as of this encounter
--- OUTSIDE RECORDS SUMMARY | 2025-03-24 20:31 | XMS_ITS | Encounter Summary ---
Author Organization [facility] Address [address] [place] [address] Care Team Providers Care Laborer Pullet Farm Name Role Phone Rio Jaquez MD Primary Care Provider Barry Kilpatrick MD Unavailable Michelle Henderson RN Unavailable [phone] Rio Jaquez MD Unavailable [phone] Jemima Jaramillo MD Unavailable Unavai Kelley Bautista RN Unavailable [phone] Sydnee Saleem MD Unavailable [phone] Karlene Moya MD Unavailable [phone] Wilbert Quintero OD Unavailable [phone] Rod Gauthier DPM Unavailable [phone] Nallely Hogue RN Unavailable Unavailable Larisa Vargas RN Unavailable Unavailable Francisco Lott MD Unavailable [phone] Greg Ortega MD Unavailable [phone] Jan Mahmood MD Unavailable [phone] Brandt Quintana MD Unavailable [phone] Jan Mahmood MD Unavailable Rio Jaquez [...] MD Unavailable Joesph Crowe MD Unavailable [phone] Joesph Crowe MD Unavailable [phone] Adonay Haq MD Unavailable [phone] Denilson Srinivasan MD Unavailable [phone] Jason Alvares MD Unavailable Ruth RiddleM, Podiatry /Foot and Ankle Surgery Unavailable Omar Carmona MD Primary Care Provider Jignesh Mathias MD Unavailable Adonay Haq MD Unavailable [phone] Omar Carmona MD Unavailable Jason Alvares MD Unavailable Jignesh Mathias MD Unavailable Ayad Lopez PhD Unavailable [phone] Gavi Nieto-Keisha Unavailable [phone] Encounter Details Date Type Department Care Team (Late st Contact Info) Description 02/17/2021 [facility] Adult Call Center [address] [place] [phone] ArabellacollisonLizbeth Social History Tobacco Use Types Packs/Day Years [...] Sex Assigned at Female 09/12/2020 12:05 PM LINING SEWER Legal Sex Female 3:26 AM LINING SEWER Gender Identity Female 09/12/2020 12:05 PM LINING SEWER Sexual Orientation Straight 12/19/2021 10 :44 AM [...] Description 03/26/2025 11:00 AM CDT Therapy Visit [address] [address] Jason Alvares MD [address] 124535 Chaya Castillo, OTR [address] [address] 03/29/2025 10:30 AM CDT Therapy Visit [facility] Specialty [place] [address] [facility] [address] [place] [phone] [place] [address]EL [address] [place], [place] 120667 04/02/2025 11:00 AM CDT Therapy Visit [address] [phone] Jason Alvares MD [address] [place] [address] Chaya Castillo OTR [address] [address] 04/11/2025 12:30 PM CDT Office Visit [facility] Primary Care Clinic [address] 4th [place] [address] Omar Carmona MD [address] [place] [address] 953235 04/12/2025 2:15 PM CDT Therapy Visit [address] [address] Jason Alvares MD [address] [address] Chaya Castillo, OTR [facility] [place] [address] [place] [address] 04/16/2025 11:00 AM CDT Therapy Visit [facility] [place] [address] [place] [address] Jason Alvares MD [address] [place] [address] Chaya Castillo OTR [facility] 150 [place] [address] 04/23/2025 11:00 AM CDT Therapy [facility] [address] [place] [address] Jason Alvares MD [address] [place] [address] Chaya Castillo OTR [facility] 150 [facility] [place] [address] 04/30/2025 11:00 AM CDT Therapy Visit [facility] [place] [address] [place] [address] Jason Alvares MD [address] [place] [address] Chaya Castillo, OTR [facility] [place] 150 [place] [address] 05/15/2025 12:30 PM CDT Office Visit [facility] [address] [place] [address] Marquise Hanley MD [address] [place] [address] 06/08/2025 9:15 AM CDT Office Visit [facility] Hepatology Clinic [address] [phone] Jignesh Mathias MD [address] [place] [address] 11/05/2025 1:45 PM CDT Office Visit [facility] Dermatology Clinic [address] 3rd [place] [phone] Gavi Nieto PA-C Dermatology [address] [place] [address] [phone] documented as of this encounter Goals Goal [...] Depression Total Score: 12 021 9:43 AM LINING SEWER documented as of this encounter Care Teams Laborer Pullet Farm Relationship Specialty Start Date End Date Rio Jaquez MD [address] [place] [address]75 PCP - General Family Practice 12/02/10 07/13/24 Omar Carmona MD [address] [place] [address] 026935 PCP - General Family Medicine 07/14/24 Barry Kilpatrick MD [address] [place] [address] UC9120YK [place], [place] 130575 Neurology 07/19/14 Michelle Henderson I, RN Nurse Coordinator Neurology 07/19/14 Rio Jaquez MD [address] [place] [address] 4 [place], [place] 736355 Family Practice 10/15/14 Jemima Jaramillo MD county supervisor 11/20/14 Kelley Chin, TANIA [address] 794875 Nurse Coordinator Cardiology 11/04/15 Sydnee Saleem MD [address] [place] [address] 508 [place], [place] 793595 Cardiology 11/04/15 Karlene Moya MD [address] [place] [address] 229945 Ophthalmology 06/24/17 Wilbert Quintero, OD [address] [place] [address] Optometry 06/24/17 Rod Gauthier DPM [address] [place] [address] Dermatology Technician Primary Podiatric Medicine 06/21/18 Nallely Hogue, RN Registered Nurse 02/20/19 11/23/22 Larisa Vargas, TANIA Specialty Patient Intake Coordinator Cardiology 04/18/19 03/06/22 Francisco Lott MD 515 [facility] 88 [place] [address] Assigned Rheumatology Provider 05/31/20 12/13/21 Greg Ortega MD 909 [place], [place] 444085 Assigned Surgical Provider 06/23/20 12/06/21 Jan Mahmood MD 516 [facility] 2A [place] [address] Gastroenterology 11/05/20 Brandt Quintana MD [facility]4 [place] [address] Resident 11/05/20 Jan Mahmood MD 516 [facility] 2A [place] [address] Assigned Gastroenterology Provider 12/01/20 Rio Jaquez MD 909 [facility] 4 [place] [address] Assigned PCP 11/17/20 09/30/24 Dom Eason MD 717 [facility] 353 [place] [address] Internal Medicine 12/02/20 Jayla Plaza, RN Specialty Patient Intake Coordinator Hepatology 01/09/21 02/13/24 Sydnee Saleem MD 6550 [facility] [address] [place] [address] [phone] Assigned Heart and Vascular Provider 02/02/21 07/24/22 Phan Coello MD Assigned Neuroscience Provider 02/21/21 11/22/21 Cristian Barragan MD 2945 [place] [address] Assigned Infectious Disease Provider 02/21/21 03/06/22 Dom Eason MD [address] [place] [address] 353 [place], [place] 716854 Assigned Nephrology Provider 04/20/21 01/02/22 Jaimie Vernon, TANIA Specialty Patient Intake Coordinator Cardiology 10/28/21 Ruth Riddle DPM, Podiatry/Foot and Ankle Surgery [address] [facility] 300 [place], [place] 624647 Assigned Musculoskeletal Provider 11/30/21 09/30/23 Luis Arrington MD [address] [place] [address] 657635 Assigned Neuroscience Provider 11/23/21 01/02/22 Jason Alvares MD [address] [place] [address] 295 [place], [place] 311785 Assigned Neuroscience Provider 01/03/22 05/15/22 Marquise Hanley MD [address] [place] [address] 8[address]35 Endocrinology, Diabetes, and Metabolism 03/05/22 Vlad Ramey MD [address] [place] [address] 07692 Cardiovascular Disease 05/07/22 Joesph Crowe MD [address] [place] [address] 63297 Surgery 05/07/22 Luis Arrington MD [address] [place] [address] 37242 Assigned Neuroscience Provider 05/16/22 05/14/23 Michelle Padilla RN Specialty Patient Intake Coordinator Cardiology 07/03/22 Vlad Ramey MD [address] [place] [address] 56629 Assigned Heart and Vascular Provider 07/25/22 05/28/23 Marquise Hanley MD [address] [place] [address] 50135 Assigned Endocrinology Provider 08/15/22 Dom Eason MD [address] [place] [address] 28091 Assigned Nephrology Provider 11/28/22 02/19/23 Wagner Oliver MD [address] [place] [address] Critical Care 12/15/22 Laura Epperson, TREATING PLANT SUPERVISOR 717 [facility] 1932 [place] [address] Assigned Nephrology Provider 02/20/23 08/30/24 Thom Taveras MD [address] [facility], [address] [place] [address] Assigned Cancer Care Provider 02/06/23 08/20/23 Joesph Crowe MD 909 [place] [address] Surgery 03/17/23 Joesph Crowe MD 909 [place] [address] Assigned Surgical Provider 04/03/23 09/30/24 Adonay Haq MD 909 [place] [address] Internal Medicine 06/14/23OctoberDenilson MD [address] [facility] [address] [place] [address] Assigned Heart and Vascular Provider 05/29/23 11/28/24 Jason Alvares MD 420 [facility] 295 [place] [address] Assigned Neuroscience Provider 05/15/23 11/28/24 Ruth Riddle DPM, Podiatry/Foot and Ankle Surgery [address] [place] [address] Assigned Musculoskeletal Provider 10/22/23 Jignesh Mathias MD [address] [place] [address] 68998 Gastroenterology 09/25/24 Adonay Haq MD [address] [place] [address] 52027 Assigned PCP 10/01/24 12/28/24 Omar Carmona MD [address] [place] [address] 522245 Assigned PCP 12/29/24 Jason Alvares MD [address] [place] [address] 778835 Assigned Neuroscience Provider 12/29/24 Jignesh Mathias MD [address] [place] [address] 08061 Assigned Surgical Provider 12/29/24 Ayad Lopez, PhD LP [address] [place] [address] [phone] Assigned Behavioral Health Provider 02/28/25 Gavi Nieto PANavinC [address] [place] [address] 729735 Physician Underwriting Analyst Dermatology 03/19/25 documented as of this encounter
--- OUTSIDE RECORDS SUMMARY | 2025-03-24 20:31 | XMS_ITS | Encounter Summary ---
Author Organization [facility] Address [address] [place] [address] Care Team Providers Care Film Splicer Name Role Phone Rio Jaquez MD Primary Care Provider Barry Kilpatrick MD Unavailable Michelle Henderson I RN Unavailable [phone] Rio Jaquez MD Unavailable +[phone] Jemima Jaramillo MD Unavailable Unavai Kelley Bautista RN Unavailable [phone] Sydnee Saleem MD Unavailable +[phone] Karlene Moya MD Unavailable Wilbert Quintero OD Unavailable +[phone] Rod Gauthier DPM Unavailable Jan Mahmood MD Unavailable +[phone] Brandt Quintana MD Unavailable Jan Mahmood MD Unavailable +[phone] Rio Jaquez MD Unavailable +[phone] Dom Eason MD Unavailable Jayla Plaza RN Unavailable +[phone] Jaimie Vernon RN Unavailable Unavailable Ruth Riddle DPM, Podiatry /Foot and Ankle Surgery Unavailable Marquise Hanley MD Unavailable +[phone] Vlad Ramey MD Unavailable +[phone] Joesph Crowe MD Unavailable +[phone] Michelle Padilla RN Unavailable Unavaila ble Vlad Ramey MD Unavailable +[phone] Marquise Hanley MD Unavailable +[phone] Wagner Oliver MD Unavailable +[phone] Laura Epperson NP Unavailable +[phone] Thom Taveras MD Unavailable +[phone] Joesph Crowe MD Unavailable +[phone] Joesph Crowe MD Unavailable +[phone] Adonay Haq MD Unavailable +[phone] Denilson Srinivasan MD Unavailable + [phone] Jason Alvares MD Unavailable Ruth Riddle DPM, Podiatry /Foot and Ankle Surgery Unavailable Omar Carmona MD Primary Care Provider +[phone] Jignesh Mathias MD Unavailable Adonay Haq MD Unavailable +[phone] Omar Carmona MD Unavailable +[phone] Jason Alvares MD Unavailable Jignesh Mathias MD Unavailable Ayad Lopez PhD LP Unavailable +[phone] Gavi Nieto PA-C Unavailable +[phone] Encounter Details Date Type Department Care Team (Late st Contact Info) Description 05/26/2023 MyC Medical Advice [facility] [address] [address] Vlad Ramey MD [address] [place] [address] Social History Tobacco Use Types Packs/Day [...] any clubs o r organizations such as pentecostal groups, unions, fraternal or athletic groups, or [...] Answer Date Recorded PHQ-2 Score 2 03/15/2023 [facility] [...] place to sleep or slept in a penitentiary (including now)? No 08/27/2021 Adolescent Education Answer Date Record ed Getting School Help Needed Not on file 05/08 Comments No Sex and Gender Information Value Date Recorded Sex Assigned at Female 09/12/2020 12:05 PM CORPORATE COMPLIANCE DIRECTOR Legal Sex Female 3:26 AM CORPORATE COMPLIANCE DIRECTOR Gender Identity Female 09/12/2020 12:05 PM CORPORATE COMPLIANCE DIRECTOR Sexual Orientation Straight 12/19/2021 10 :44 AM [...] 03/26/2025 11:00 AM CDT Therapy Visit [address] [phone] Jason Alvares MD [address] [place] [address] 875735 Chaya Castillo OTR FV [address] [address] 03/29/2025 10:30 AM CDT Therapy Visit [facility] [address] [facility] [address] [place] [phone] [place] [address] [place], [place] 215377 04/02/2025 11:00 AM CDT Therapy Visit [address] [phone] Jason Alvares MD [address] [place] [address] [phone] Chaya Castillo, OTR [facility] [address] [place] [address] 04/11/2025 12:30 PM CDT Office Visit [facility] [address] 4th [place] [phone] Omar Carmona MD [address] [place] [address] 281255 04/12/2025 2:15 PM CDT Therapy [facility] [phone] Jason Alvares MD [address] [place] [address] Chaya Castillo OTR [facility] [address] [place] [address] 04/16/2025 11:00 AM CDT [facility] [address] [place] [phone] Jason Alvares MD [address] [place] [address] Chaya Castillo OTR [facility] [address] [place] [address] 04/23/2025 11:00 AM CDT Therapy [facility] [phone] Jason Alvares MD [address] [place] [address] Chaya Castillo OTR [facility] [address] [place] [address] 04/30/2025 11:00 AM CDT Therapy Visit [facility] [address] [phone] Jason Alvares MD 420 [facility] 295 [place] [address] Chaya Castillo, OTR [address] [address] 05/15/2025 12:30 PM CDT Office Visit [address] [phone] Marquise Hanley MD [address] [place] [address] 06/08/2025 9:15 AM CDT Office Visit [facility] [address] [phone] Jignesh Mathias MD [address] [place] [address] 11/05/2025 1:45 PM CDT Office Visit [facility] [address] 3rd [place] [address] Gavi Nieto PA-C Dermatology [address] [place] [address] documented as of this encounter Goals Goal [...] documented as of this encounter Care Teams Film Splicer Relationship Specialty Start Date End Date Rio Jaquez MD [address] [place] [address] 4 [place] [address] PCP - General Family Practice 12/02/10 07/13/24 Omar Camrona MD [address] [place] [address] PCP - General Family Medicine 07/14/24 Barry Kilpatrick MD [address] [place] [address] [id number] [place] [address] Neurology 07/19/14 Michelle Henderson I, TANIA Nurse Coordinator Neurology 07/19/14 Rio Jaquez MD [address] [place] [address] Family Practice 10/15/14 Jemima Jaramillo MD clock maker 11/20/14 Kelley Chin, TANIA [address] 133345 Nurse Coordinator Cardiology 11/04/15 Sydnee Saleem MD [address] [place] [address] 508 [place], [place] 413225 Cardiology 11/04/15 Karlene Moya MD 516 [place] [address] Ophthalmology 06/24/17 Wilbert Quintero OD 909 [place] [address] Optometry 06/24/17 Rod Gauthier DPM [address] [place], [place] 869475 Wind Turbine Erector Primary Podiatric Medicine 06/21/18 Jan Mahmood MD 6 [facility] 2A [place], [place] [phone] MD Gastroenterology 11/05/20 Brandt Quintana MD [address] [place] [address] Resident 11/05/20 Jan Mahmood MD 6 [facility] 2A [place] [address] Assigned Gastroenterology Provider 12/01/20 Rio Jaquez MD [address] [facility] 4 [place] [address] Assigned PCP 11/17/20 09/30/24 Dom Eason MD 717 [facility] 353 [place] [address] Internal Medicine 12/02/20 Jayla Plaza, RN Specialty Manager Research Development Hepatology 01/09/21 02/13/24 Jaimie Vernon, TANIA Specialty Manager Research Development Cardiology 10/28/21 Ruth Riddle DPM, Podiatry/Foot and Ankle Surgery [address] [place] [address] Assigned Musculoskeletal Provider 11/30/21 09/30/23 Marquise Hanley MD [address] [place] [address]697 Endocrinology, Diabetes, and Metabolism 03/05/22 Vlad Ramey MD [address] [place] [address] Cardiovascular Disease 05/07/22 Joesph Crowe MD [address] [place] [address] Surgery 05/07/22 Michelle Padilla RN Specialty Manager Research Development Cardiology 07/03/22 Vlad Ramey MD [address] [place] [address] 97[address] Assigned Heart and Vascular Provider 07/25/22 05/28/23 Marquise Hanley MD [address] [place] [address] Assigned Endocrinology Provider 08/15/22 Wagner Oliver MD [address] [place] [address] Critical Care 12/15/22 Laura Epperson NP 717 [facility] [address] [place] [address] Assigned Nephrology Provider 02/20/23 08/30/24 Thom Taveras MD [address] [place] [address] Assigned Cancer Care Provider 02/06/23 08/20/23 Joesph Crowe MD 909 [place] [address] Surgery 03/17/23 Joesph Crowe MD 909 [place] [address] Assigned Surgical Provider 04/03/23 09/30/24 Adonay Haq MD 909 [place], [place] 065165 Internal Medicine 06/14/23OctoberDenilson MD [address] [facility] [address] [place], [place] 503445 Assigned Heart and Vascular Provider 05/29/23 11/28/24 Jason Alvares MD 420 [facility] 295 [place] [address] Assigned Neuroscience Provider 05/15/23 11/28/24 Ruth Riddle DPM, Podiatry/Foot and Ankle Surgery [address] [place] [address] Assigned Musculoskeletal Provider 10/22/23 Jignesh Mathias MD [address] [place] [address] Gastroenterology 09/25/24 Adonay Haq MD [address] [place] [address] 510805 Assigned PCP 10/01/24 12/28/24 Omar Carmona MD [address] [place] [address] 706395 Assigned PCP 12/29/24 Jason Alvares MD [address] [place] [address] 409105 Assigned Neuroscience Provider 12/29/24 Jignesh Mathias MD [address] [place] [address] 29[address] Assigned Surgical Provider 12/29/24 Ayad Lpoez, PhD LP [address] [place] [address] [phone] Assigned Behavioral Health Provider 02/28/25 Gavi Nieto PA-C [address] [place] [address] 118915 Physician Sticker Hand Dermatology 03/19/25 documented as of this encounter
--- OUTSIDE RECORDS SUMMARY | 2025-03-24 20:31 | XMS_ITS | Encounter Summary ---
Author Organization [facility] Address [address] [place] [address] Care Team Providers Care Filler Wiper Name Role Phone Rio Jaquez MD Primary Care Provider Barry Kilpatrick MD Unavailable Michelle Henderson RN Unavailable [phone] Rio Jaquez MD Unavailable [phone] Jemima Jaramillo MD Unavailable Unavai Kelley Bautista RN Unavailable [phone] Sydnee Saleem MD Unavailable [phone] Karlene Moya MD Unavailable [phone] Wilbert Quintero OD Unavailable [phone] Rod Gauthier DPM Unavailable [phone] Nallely Hogue RN Unavailable Unavailable Larisa Vargas RN Unavailable Unavailable Francisco Lott MD Unavailable +[phone] Greg Ortega MD Unavailable +[phone] Jan Mahmood MD Unavailable [phone] Brandt Quintana MD Unavailable [phone] Jan Mahmood MD Unavailable Rio Jaquez [...] Unavailable [phone] Thom Taveras MD Unavailable +[phone] Joesph Crowe MD Unavailable [phone] Joesph Crowe MD Unavailable [phone] Adonay Haq MD Unavailable [phone] Denilson Srinivasan MD Unavailable Jason Alvares MD Unavailable Ruth Riddle DPM, Podiatry /Foot and Ankle Surgery Unavailable Omar Carmona MD Primary Care Provider Jignesh Mathias MD Unavailable Adonay Haq MD Unavailable [phone] Omar Carmona MD Unavailable [phone] Jason Alvares MD Unavailable Jignesh Mathias MD Unavailable Ayad Lopez PhD LP Unavailable [phone] Gavi Nieto-C Unavailable [phone] Encounter Details Date Type Department Care Team (Late st Contact Info) Description 01/28/2021 [facility] [place] [facility] 909 [facility] 4th [place] [address] Radha Paiz, [facility] [address] [place], [place] 151423 Social History Tobacco Use Types Packs/Day Years [...] Sex Assigned at Female 09/12/2020 12:05 PM BAND INSTRUMENT MAKER Legal Sex Female 3:26 AM BAND INSTRUMENT MAKER Gender Identity Female 09/12/2020 12:05 PM BAND INSTRUMENT MAKER Sexual Orientation Straight 12/19/2021 10 :44 AM CDT Occupation Industry Job Start Date Job End Date on disability for FMS Not on file Not on file Not on file COVID-19 Exposure Response Date Recorded In the last month, have you been in contact with someone who was confirmed or suspected to have Coronavirus / COVID-19? No / Unsure 01/24/2021 3:06 PM CDT documented as of this encounter Plan of Treatment Upcoming Encounters Date Type Department Care Team (Late st Contact Info) Description 03/26/2025 11:00 AM CDT Therapy Visit [address] [phone] Jason Alvares MD [address] [place] [address] Chaya Castillo OTR [address] [address] 03/29/2025 10:30 AM CDT Therapy Visit [facility] [address] [place] [phone] [place] [address] [place] [address] 04/02/2025 11:00 AM CDT Therapy Visit [address] [phone] Jason Alvares MD [address] [place] [address] Chaya Castillo OTR [address] [address] 04/11/2025 12:30 PM CDT Office Visit [facility] [address] 4th [place] [phone] Omar Carmona MD [address] [place] [address] 896525 04/12/2025 2:15 PM CDT Therapy Visit [facility] [address] [place] [phone] Jason Alvares MD [address] [place] [address] Chaya Castillo OTR [facility] [address] [place] [address] 04/16/2025 11:00 AM CDT Therapy [facility] [address] [place] [phone] Jason Alvares MD [address] [place] [address] Chaya Castillo OTR [facility] [address] [place] [address] [place] [address] 04/23/2025 11:00 AM CDT [facility] [address] [facility] [place] [address]14 Jason Alvares MD [address] [place] [address] Chaya Castillo OTR [facility] [address] [place] [address] [place] [address] 04/30/2025 11:00 AM CDT [facility] [place] [phone] Jason Alvares MD [address] [place] [address] Chaya Castillo OTR [facility] [address] [address] 05/15/2025 12:30 PM CDT Office Visit [address] [phone] Marquise Hanley MD [address] [place] [address] 847565 06/08/2025 9:15 AM CDT Office Visit [facility] [address] [phone] Jignesh Mathias MD [address] [place] [address] 710755 11/05/2025 1:45 PM CDT Office Visit [facility] Dermat[facility] [address] 3rd [place] [address] Gavi Nieto PA-C Dermatology [address] [place] [address] [phone] documented as of this encounter Goals Goal [...] Total Score: 12 09/11/2 021 9:43 AM BAND INSTRUMENT MAKER documented as of this encounter Care Teams Filler Wiper Relationship Specialty Start Date End Date Rio Jaquez MD [address] [place] [address] [phone] PCP - General Family Practice 12/02/10 07/13/24 Omar Carmona MD [address] [place] [address] [phone] PCP - General Family Medicine 07/14/24 Barry Kilpatrick MD [address] [place] [address] HC2723PI [place], [place] 582615 Neurology 07/19/14 Michelle Henderson I RN Nurse Coordinator Neurology 07/19/14 Rio Jaquez MD [address] [place] [address] 4 [place], [place] 234005 Family Practice 10/15/14 Jemima Jaramillo MD healthcare facility administrator 11/20/14 Kelley Chin, TANIA [address] 387185 Nurse Coordinator Cardiology 11/04/15 Sydnee Saleem MD 420 [facility] 508 [place], [place] 624365 Cardiology 11/04/15 Karlene Moya MD [address] [place] [address] [phone] Ophthalmology 06/24/17 Wilbert Quintero, OD [address] [place] [address] 727315 Optometry 06/24/17 Rod Gauthier DPM [address] [place] [address] [employer] Primary Podiatric Medicine 06/21/18 Nallely Hogue, RN Registered Nurse 02/20/19 11/23/22 Larisa Vargas, RN Specialty Regional Economist Cardiology 04/18/19 03/06/22 Francisco Lott MD [address] [place] [address] Assigned Rheumatology Provider 05/31/20 12/13/21 Greg Ortega MD [address] [place] [address] Assigned Surgical Provider 06/23/20 12/06/21 Jan Mahmood MD [address] [place] [address] Gastroenterology 11/05/20 Brandt Quintana MD [address] [place] [address] Resident 11/05/20 Jan Mahmood MD [address] [place] [address] Assigned Gastroenterology Provider 12/01/20 Rio Jaquez MD [address] [place] [address] 987665 Assigned PCP 11/17/20 09/30/24 Dom Eason MD [address] [place] [address] Internal Medicine 12/02/20 Jayla Plaza, RN Specialty Regional Economist Hepatology 01/09/21 02/13/24 Sydnee Saleem MD 6550 [facility] [address] [place] [address] Assigned Heart and Vascular Provider 02/02/21 07/24/22 Phan Coello MD Assigned Neuroscience Provider 02/21/21 11/22/21 Cristian Barragan MD [address] [place] [address] Assigned Infectious Disease Provider 02/21/21 03/06/22 Dom Eason MD [address] [place] [address] 353 [place] [address] Assigned Nephrology Provider 04/20/21 01/02/22 Jaimie Vernon, RN Specialty Regional Economist Cardiology 10/28/21 Ruth Riddle, DPM, Podiatry/Foot and Ankle Surgery 91007 [facility] 300 [place], [place] 717017 Assigned Musculoskeletal Provider 11/30/21 09/30/23 Luis Arrington MD 909 [place], [place] 547385 Assigned Neuroscience Provider 11/23/21 01/02/22 Jason Alvares MD 420 [facility] 295 [place], [place] 013705 Assigned Neuroscience Provider 01/03/22 05/15/22 Marquise Hanley MD [address] [place] [address]99 Endocrinology, Diabetes, and Metabolism 03/05/22 Vlad Ramey MD [address] [place] [address]97 Cardiovascular Disease 05/07/22 Joesph Crowe MD [address] [place] [address] 0[address] Surgery 05/07/22 Luis Arrington MD [address] [place] [address] 9[address] Assigned Neuroscience Provider 05/16/22 05/14/23 Michelle Padilla RN Specialty Regional Economist Cardiology 07/03/22 Vlad Ramey MD [address] [place] [address] Assigned Heart and Vascular Provider 07/25/22 05/28/23 Marquise Hanley MD [address] [place] [address] 44[address] Assigned Endocrinology Provider 08/15/22 Dom aEson MD [address] [place] [address] 718904 Assigned Nephrology Provider 11/28/22 02/19/23 Wagner Oliver MD [address] [place] [address] Critical Care 12/15/22 Laura Epperson NP 717 [facility] 1932 [place] [address] Assigned Nephrology Provider 02/20/23 08/30/24 Thom Taveras MD [facility] [address] [place] [address] Assigned Cancer Care Provider 02/06/23 08/20/23 Joesph Crowe MD [address] [place] [address] 6[address] Surgery 03/17/23 Joesph Crowe MD [address] [place] [address] 19189 Assigned Surgical Provider 04/03/23 09/30/24 Adonay Haq MD [address] [place] [address] 595995 Internal Medicine 06/14/23OctoberDenilson MD [address] [facility] [address] [place], [place] 283625 Assigned Heart and Vascular Provider 05/29/23 11/28/24 Jason Alvares MD 420 [facility] 295 [place], [place] 468225 Assigned Neuroscience Provider 05/15/23 11/28/24 Ruth Riddle, DPM, Podiatry/Foot and Ankle Surgery [address] [place] [address] Assigned Musculoskeletal Provider 10/22/23 Jignesh Mathias MD [address] [place] [address]708 Gastroenterology 09/25/24 Adonay Haq MD [address] [place] [address] 976065 Assigned PCP 10/01/24 12/28/24 Omar Carmona MD [address] [place] [address] 666115 Assigned PCP 12/29/24 Jason Alvares MD [address] [place] [address] 196995 Assigned Neuroscience Provider 12/29/24 Jignesh Mathias MD [address] [place] [address] 337325 Assigned Surgical Provider 12/29/24 Ayad Lopez, PhD LP [address] [place] [address] [phone] Assigned Behavioral Health Provider 02/28/25 Gavi Nieto, PA-C [address] [place] [address] [phone] Physician Tie In Machine Operator Dermatology 03/19/25 documented as of this encounter
--- OUTSIDE RECORDS SUMMARY | 2025-03-24 20:31 | XMS_ITS | Encounter Summary ---
Author Organization [facility] Address [address] [place] [address]16 Care Team Providers Care Car Record Clerk Name Role Phone Rio Jaquez MD Primary Care Provider Barry Kilpatrick MD Unavailable Michelle Henderson I RN Unavailable [phone] Rio Jaquez MD Unavailable +[phone] Jemima Jaramillo MD Unavailable Unavai Kelley Bautista RN Unavailable [phone] Sydnee Saleem MD Unavailable +[phone] Karlene Moya MD Unavailable Wilbert Quintero OD Unavailable +[phone] Rod Gauthier DPM Unavailable Jan Mahmood MD Unavailable [phone] Brandt Quintana MD Unavailable Jan Mahmood MD Unavailable +[phone] Rio Jaquez MD Unavailable +[phone] Dom Eason MD Unavailable Jayla Plaza RN Unavailable +[phone] Jaimie Vernon RN Unavailable Unavailable Ruth RiddleM, Podiatry /Foot and Ankle Surgery Unavailable Marquise Hanley MD Unavailable +[phone] Vlad Ramey MD Unavailable +[phone] Joesph Crowe MD Unavailable + [phone] Michelle Padilla RN Unavailable Unavaila ble Marquise Hanley MD Unavailable +[phone] Wagner Oliver MD Unavailable +[phone] Laura Epperson NP Unavailable +[phone] Thom Taveras MD Unavailable +[phone] Joepsh Crowe MD Unavailable + [phone] Joesph Crowe MD Unavailable + [phone] Adonay Haq MD Unavailable [phone] Denilson Srinivasan MD Unavailable + [phone] Jason Alvares MD Unavailable Ruth Riddle DPM, Podiatry /Foot and Ankle Surgery Unavailable Omar Carmona MD Primary Care Provider [phone] Jignesh Mathias MD Unavailable Adonay Haq MD Unavailable +[phone] Omar Carmona MD Unavailable +[phone] Jason Alvares MD Unavailable Jignesh Mathias MD Unavailable Ayad Lopez PhD LP Unavailable +[phone] Gavi Nieto PA-C Unavailable +[phone] Encounter Details Date Type Department Care Team (Late st Contact Info) Description 06/29/2023 MyC Medical Advice M [facility] End[facility]ology [facility] [address] [place] [address] Shara Payne, RN Social History [...] than three times a week 08/27/2021 Attends [employer] Not on file 08/27 Do you belong to any clubs o r organizations such as moravian groups, unions, fraternal or athletic groups, or [...] Answer Date Recorded PHQ-2 Score 2 06/14/2023 [facility] [place] of Occupat ional Health - Occupational Stress [...] you got money to buy more? No 06/06/2023 Within the past 12 months, d id the food you bought just not last and you didn t have money to get more? No 06/06/2023 Housing Stability Answer Date Recorded Do you have housing? (Antony broderick is defined as stable permanent housing and does not include staying outside in a car, in a tent, in an abandoned building, in an overnight fpc, or couch-surfing.) Yes 06/06/2023 Are you worried about losing your housing? No 06/06/2023 Financial Resource Strain Answer Date R ecorded Within the past 12 months, h ave you or your family members you live with been unable to get utilities (heat, electricity) when it was really needed? No 06/06/2023 Transportation Needs Answer Date Record ed Within the past 12 months, h as lack of transportation kept you from medical appointments, getting your medicines, non-medical meetings or appointments, work, or from getting things that you need? Yes 06/06/2023 Interpersonal Safety Answer Date Record ed Do you feel physically and e motionally safe where you currently live? Yes 06/14/2023 Within the past 12 months, h ave you been hit, slapped, kicked or otherwise physically hurt by someone? Patient refused 2022 Within the past 12 months, h ave you been humiliated or emotionally abused in other ways by your partner or ex-partner? Patient refused 06/14/2023 Comments No Sex and Gender Information Value Date Recorded Sex Assigned at Female 09/12/2020 12:05 PM SANITATION ASSOCIATE Legal Sex Female 3:26 AM SANITATION ASSOCIATE Gender Identity Female 09/12/2020 12:05 PM SANITATION ASSOCIATE Sexual Orientation Straight 12/19/2021 10 :44 [...] Description 03/26/2025 11:00 AM CDT Therapy [facility] [place] [phone] Jason Alvares MD [address] [place] [address] 997755 Chaya Castillo, OTR [facility] [address] [place] [address] 03/29/2025 10:30 AM CDT Therapy Visit [facility] [address] [place] [address] [phone] [place] [address] [place], [place] 335047 04/02/2025 11:00 AM CDT Therapy Visit [address] [phone] Jason Alvares MD [address] [place] [address] 079225 Chaya Castillo, OTR [facility] [address] [place] [address] 415[address] 04/11/2025 12:30 PM CDT Office Visit [facility] [address] 4th [place] [address] Omar Carmona MD [address] [place] [address] 04/12/2025 2:15 PM CDT [facility] [address] [place] [phone] Jason Alvares MD [address] [place] [address] 610985 Chaya Castillo OTR [facility] [address] [facility] [place] [address] 04/16/2025 11:00 AM CDT Therapy Visit [facility] [address] [facility] [place] [phone] Jason Alvares MD [address] [place] [address] 9[address] Chaya Castillo OTR [facility] 150 [place] [address] 04/23/2025 11:00 AM CDT Therapy [facility] 150 [place] [phone] Jason Alvares MD [address] [place] [address] 185[address] Chaya Castillo OTR [facility] 150 [place] [address] 04/30/2025 11:00 AM CDT Therapy Visit [facility] [address] [facility] [place] [phone] Jason Alvares MD [address] [place] [address] 31372 Chaya Castillo OTR [facility] 150 [place] [address] 05/15/2025 12:30 PM CDT Office Visit [address] [phone] Marquise Hanley MD [address] [place] [address] 07146 06/08/2025 9:15 AM CDT Office Visit [facility] Hepatology Clinic [address] [phone] Jignesh Mathias MD [address] [place] [address] 39818 11/05/2025 1:45 PM CDT Office Visit [facility] Dermatology Clinic [address] 3rd [place] [address] Gavi Nieto PA-C Dermatology [address] [place] [address] [phone] documented as of this encounter Goals Goal [...] Total Score: 9 06/14/20 23 7:18 AM SANITATION ASSOCIATE documented as of this encounter Care Teams Car Record Clerk Relationship Specialty Start Date End Date Rio Jaquez MD [address] [place] [address] 4 [place] [address] PCP - General Family Practice 12/02/10 07/13/24 Omar Carmona MD [address] [place] [address] 27628 PCP - General Family Medicine 07/14/24 Barry Kilpatrick MD [address] [place] [address] [id number] [place], [place] 330425 Neurology 07/19/14 Michelle Henderson I, RN Nurse Coordinator Neurology 07/19/14 Rio Jaquez MD [address] [place] [address] [address] [place], [place] 725475 Family Practice 10/15/14 Jemima Jaramillo MD pre billing specialist 11/20/14 Kelley Chin RN [address] 798155 Nurse Coordinator Cardiology 11/04/15 Sydnee Saleem MD 420 [facility] 508 [place], [place] 842635 Cardiology 11/04/15 Karlene Moya MD [address] [place] [address] 207705 Ophthalmology 06/24/17 Wilbert Quintero, OD [address] [place] [address] [phone] Optometry 06/24/17 Rod Gauthier DPM [address] [place] [address] [phone] Program Admin Primary Podiatric Medicine 06/21/18 Jan Mahmood MD [address] [place] [address] 2[address] [place] [address] Gastroenterology 11/05/20 Brandt Quintana MD 1414 [place] [address] Resident 11/05/20 Jan Mahmood MD 6 [facility] 2A [place] [address] Assigned Gastroenterology Provider 12/01/20 Rio Jaquez MD [address] [place] [address] 60438 Assigned PCP 11/17/20 09/30/24 Dom Eason MD [address] [place] [address] 79570 Internal Medicine 12/02/20 Jayla Plaza, RN Specialty Geophysical Support Specialist Hepatology 01/09/21 02/13/24 Jaimie Vernon, RN Specialty Geophysical Support Specialist Cardiology 10/28/21 Ruth Riddle, DPM, Podiatry/Foot and Ankle Surgery [address] [address] Assigned Musculoskeletal Provider 11/30/21 09/30/23 Marquise Hanley MD [address] [place] [address] 01220 Endocrinology, Diabetes, and Metabolism 03/05/22 Vlad Ramey MD [address] [place] [address] 54138 Cardiovascular Disease 05/07/22 Joesph Crowe MD [address] [place] [address] 84119 Surgery 05/07/22 Michelle Padilla, RN Specialty Geophysical Support Specialist Cardiology 07/03/22 Marquise Hanley MD [address] [place] [address] 55833 Assigned Endocrinology Provider 08/15/22 Wagner Oliver MD 6401 [place] [address] Critical Care 12/15/22 Laura Epperson NP [address] [place] [address] 1932 [place] [address] Assigned Nephrology Provider 02/20/23 08/30/24 Thom Taveras MD [address] [place] [address] 99411 Assigned Cancer Care Provider 02/06/23 08/20/23 Joesph Crowe MD [address] [place] [address] 36234 Surgery 03/17/23 Joesph Crowe MD [address] [place] [address] 31471 Assigned Surgical Provider 04/03/23 09/30/24 Adonay Haq MD [address] [place] [address] 96529 Internal Medicine 06/14/23OctoberDenilson MD [address] [facility] [address] [place] [address] Assigned Heart and Vascular Provider 05/29/23 11/28/24 Jason Alvares MD [address] [place] [address] 57788 Assigned Neuroscience Provider 05/15/23 11/28/24 Ruth Riddle DPM, Podiatry/Foot and Ankle Surgery [address] [place] [address] Assigned Musculoskeletal Provider 10/22/23 Jignesh Mathias MD [address] [place] [address] 79100 Gastroenterology 09/25/24 Adonay Haq MD [address] [place] [address] 60101 Assigned PCP 10/01/24 12/28/24 Omar Carmona MD [address] [place] [address] 01978 Assigned PCP 12/29/24 Jason Alvares MD [address] [place] [address] 93142 Assigned Neuroscience Provider 12/29/24 Jignesh Mathias MD [address] [place] [address] 56343 Assigned Surgical Provider 12/29/24 Ayad Lopez, PhD LP [address] [place] [address] 55455 Assigned Behavioral Health Provider 02/28/25 Gavi Nieto PANavinC [address] [place] [address] Physician Transitional Care Liaison Dermatology 03/19/25 documented as of this encounter
--- OUTSIDE RECORDS SUMMARY | 2025-03-24 20:31 | XMS_ITS | Encounter Summary ---
Author Organization [facility] Address [address] [place] [address] 65852 Care Team Providers Care Green Meat Packer Name Role Phone Rio Jaquez MD Primary Care Provider Barry Kilpatrick MD Unavailable Michelle Henderson I RN Unavailable [phone] Rio Jaquez MD Unavailable +[phone] Jemima Jaramillo MD Unavailable Unavai Kelley Bautista RN Unavailable [phone] Sydnee Saleem MD Unavailable [phone] Karlene Moya MD Unavailable Wilbert Quintero OD Unavailable +[phone] Rod Gauthier DPM Unavailable Jan Mahmood MD Unavailable [phone] Brandt Quintana MD Unavailable [phone] Jan Mahmood MD Unavailable +[phone] Rio Jaquez MD Unavailable [phone] Dom Eason MD Unavailable Jayla Plaza RN Unavailable +[phone] Jaimie Vernon RN Unavailable Unavailable Ruth RiddleM, Podiatry /Foot and Ankle Surgery Unavailable Marquise Hanley MD Unavailable +[phone] Vlad Ramey MD Unavailable +[phone] Joesph Crowe MD Unavailable + [phone] Michelle Padilla RN Unavailable Unavaila ble Marquise Hanley MD Unavailable +[phone] Wagner Oliver MD Unavailable [phone] Laura Epperson NP Unavailable +[phone] Thom Taveras MD Unavailable +[phone] Joesph Crowe MD Unavailable + [phone] Joesph Crowe MD Unavailable + [phone] Adonay Haq MD Unavailable [phone] Denilson Srinivasan MD Unavailable + [phone] Jason Alvares MD Unavailable Ruth Riddle DPM, Podiatry /Foot and Ankle Surgery Unavailable Omar Carmona MD Primary Care Provider [phone] Jignesh Mathias MD Unavailable Adonay Haq MD Unavailable +[phone] Omar Carmona MD Unavailable +[phone] Jason Alvares MD Unavailable Jignesh Mathias MD Unavailable Ayad Lopez PhD LP Unavailable +[phone] Gavi Nieto PA-C Unavailable [phone] Encounter Details Date Type Department Care Team (Late st Contact Info) Description 07/10/2023 MyC Medical Advice [facility] [address]th [place] [address] Joesph Crowe MD [address] [place] [address] [phone] Social History Tobacco Use Types Packs/Day Years [...] Answer Date Recorded PHQ-2 Score 2 06/14/2023 [facility] [place] of Occupat ional Health - Occupational Stress [...] Assigned at Female 09/12/2020 12:05 PM SUPERVISOR PULLET FARM Legal Sex Female 3:26 AM SUPERVISOR PULLET FARM Gender Identity Female 09/12/2020 12:05 PM SUPERVISOR PULLET FARM Sexual Orientation Straight 12/19/2021 10 :44 AM [...] Therapy Visit [facility] 150 [place] [phone] Jason Alvares MD [address] [place] [address] 6[address] Chaya Castillo, OTR [address] [address] 03/29/2025 10:30 AM CDT Therapy Visit [facility] [place] [address] [place] [phone] [place] [address] [place], [place] [address] 04/02/2025 11:00 AM CDT Therapy Visit [address] [phone] Jason Alvares MD [address] [place] [address] Chaya Castillo, OTR [address] [address] 04/11/2025 12:30 PM CDT Office Visit [facility] Primary Care Clinic [address] 4th [place] [address] Omar Carmona MD [address] [place] [address] 668355 04/12/2025 2:15 PM CDT Therapy Visit [address] [phone] Jason Alvares MD [address] [place] [address] [address] Chaya Castillo, OTR [facility] 150 [place] [address] 04/16/2025 11:00 AM CDT Therapy Visit [facility] [address] [facility] [place] [address] Jason Alvares MD [address] [address] Chaya Castillo OTR [facility] 150 [facility] [place] [address] 04/23/2025 11:00 AM CDT Therapy Visit [facility] 150 [facility] [place] [address] Jason Alvares MD [address] [address] Chaya Castillo, OTR [facility] 150 [facility] [place] [address] 04/30/2025 11:00 AM CDT Therapy Visit [facility] 150 [facility] [place] [address] Jason Alvares MD [address] [address] Chaya Castillo, OTR [facility] 150 [place] [address] 05/15/2025 12:30 PM CDT Office Visit [address] [place] [phone] Marquise Hanley MD [address] [place] [address] 06/08/2025 9:15 AM CDT Office Visit [facility] Hepatology [address] [phone] Jignesh Mathias MD [address] [place] [address] 70619 11/05/2025 1:45 PM CDT Office Visit [facility] Dermatology [address] 3rd [place] [phone] Gavi Nieto PA-C Dermatology [address] [place] [address] [phone] documented as of this encounter Goals Goal [...] Score: 9 06/14/20 23 7:18 AM SUPERVISOR PULLET FARM documented as of this encounter Care Teams Green Meat Packer Relationship Specialty Start Date End Date Rio Jaquez MD [address] [place] [address] 04033 PCP - General Family Practice 12/02/10 07/13/24 Omar Carmona MD [address] [place] [address] 33044 PCP - General Family Medicine 07/14/24 Barry Kilpatrick MD [address] [place] [address] [id number] [place], [place] 152395 Neurology 07/19/14 Michelle Henderson I, RN Nurse Coordinator Neurology 07/19/14 Rio Jaquez MD [address] [place] [address] 4 [place], [place] 736265 Family Practice 10/15/14 Jemima Jaramillo MD property site manager 11/20/14 Kelley Chin RN [address] 967695 Nurse Coordinator Cardiology 11/04/15 Sydnee Saleem MD [address] [place] [address] 508 [place], [place] 301395 Cardiology 11/04/15 Karlene Moya MD [address] [place] [address] Ophthalmology 06/24/17 Wilbert Quintero, OD [address] [place] [address] 977705 Optometry 06/24/17 Rod Gauthier DPM [address] [place] [address] 648325 Construction Equipment Mechanic Primary Podiatric Medicine 06/21/18 Jan Mahmood MD 516 [facility] 2A [place] [address] Gastroenterology 11/05/20 Brandt Quintana MD 1414 [place] [address] Resident 11/05/20 Jan Mahmood MD 516 [facility] 2A [place] [address] Assigned Gastroenterology Provider 12/01/20 Rio Jaquez MD 909 [facility] 4 [place] [address] Assigned PCP 11/17/20 09/30/24 Dom Eason MD 717 [facility] 353 [place] [address] Internal Medicine 12/02/20 Jayla Plaza, RN Specialty Team Member Hepatology 01/09/21 02/13/24 Jaimie Vernon, RN Specialty Team Member Cardiology 10/28/21 Ruth Riddle DPM, Podiatry/Foot and Ankle Surgery 09189 [facility] [address] [place] [address] Assigned Musculoskeletal Provider 11/30/21 09/30/23 Marquise Hanley MD 909 [place] [address] Endocrinology, Diabetes, and Metabolism 03/05/22 Vlad Ramey MD [address] [place] [address] 20488 Cardiovascular Disease 05/07/22 Joesph Crowe MD [address] [place] [address] 86952 Surgery 05/07/22 Michelle Padilla, RN Specialty Team Member Cardiology 07/03/22 Marquise Hanley MD [address] [place] [address] 18985 Assigned Endocrinology Provider 08/15/22 Wagner Oliver MD [address] [place] [address] Critical Care 12/15/22 Laura Epperson NP 717 [facility] 1932 [place] [address] Assigned Nephrology Provider 02/20/23 08/30/24 Thom Taveras MD [facility] [address], [address] [place] [address] Assigned Cancer Care Provider 02/06/23 08/20/23 Joesph Crowe MD [address] [place] [address] 95326 Surgery 03/17/23 Joesph Crowe MD [address] [place] [address] 93027 Assigned Surgical Provider 04/03/23 09/30/24 Adonay Haq MD 9 [place] [address] Internal Medicine 06/14/23October, Denilson Jackson MD [address] [facility] [address] [place], [place] 776805 Assigned Heart and Vascular Provider 05/29/23 11/28/24 Jason Alvares MD [address] 074225 Assigned Neuroscience Provider 05/15/23 11/28/24 Ruth Riddle, DPM, Podiatry/Foot and Ankle Surgery [address] [place], [place] 638427 Assigned Musculoskeletal Provider 10/22/23 Jignesh Mathias MD [address] [place] [address] 287575 Gastroenterology 09/25/24 Adonay Haq MD [address] [place] [address] 76986 Assigned PCP 10/01/24 12/28/24 Omar Carmona MD [address] [place] [address] 68801 Assigned PCP 12/29/24 Jason Alvares MD [address] 821975 Assigned Neuroscience Provider 12/29/24 Jignesh Mathias MD [address] [place] [address] 35308 Assigned Surgical Provider 12/29/24 Ayad Lopez, PhD LP [address] [place] [address] Assigned Behavioral Health Provider 02/28/25 Gavi Nieto PANavinC [address] [place] [address] 092585 Physician Hospitality Coordinator Dermatology 03/19/25 documented as of this encounter
--- OUTSIDE RECORDS SUMMARY | 2025-03-24 20:31 | XMS_ITS | Encounter Summary ---
Author Organization [facility] Address [address] [place] [address] Care Team Providers Care Backup Sawyer Name Role Phone Elsewhere, Pcp Primary Care Provider Unavailabl e Reason for Visit * Reason Comments Med Refill Encounter Details Date Type Department Care Team (Late st Contact Info) Description 01/12/2025 Refill Department of Family Medicine, [facility], in [address] [phone] Marietta Sanchez, EMILE, C.N.P. [address] [place] [address] Med Refill Social History Tobacco Use Types [...] Sex Assigned at Female 09/14/2023 4:26 PM COUNTER TENDER Legal Sex Female 11:56 AM COUNTER TENDER Gender Identity Female 09/14/2023 4:26 PM COUNTER TENDER Sexual Orientation Straight 09/14/2023 4: 26 PM COUNTER TENDER documented as of this encounter Plan of Treatment Not on file documented as of this encounter Visit Diagnoses Not on filedocumented in this encounter Additional Health Concerns Assessment Noted Time PHQ-9 Depression Total Score: 12 025 10:01 AM CDT documented as of this encounter Care Teams Backup Sawyer Relationship Specialty Start Date End Date Elsewhere, Pcp PCP - General Internal Medicine 12/28/24 documented as of this encounter
--- OUTSIDE RECORDS SUMMARY | 2025-03-24 20:31 | XMS_ITS | Encounter Summary ---
Author Organization [facility] Address [address] [place] [address] Care Team Providers Care Appointment Scheduler Name Role Phone Rio Jaquez MD Primary Care Provider Barry Kilpatrick MD Unavailable Michelle [place] I RN Unavailable [phone] Rio Jaquez MD Unavailable +[phone] Jemima Jaramillo MD Unavailable Unavai Kelley Bautista RN Unavailable +[phone] Sydnee Saleem MD Unavailable +[phone] Karlene Moya MD Unavailable +[phone] Wilbert Quintero OD Unavailable +[phone] Rod Gauthier DPM Unavailable Jan Mahmood MD Unavailable +[phone] Brandt Quintana MD Unavailable Jan Mahmood MD Unavailable +[phone] Rio Jaquez MD Unavailable +[phone] Dom Eason MD Unavailable Jayla Plaza RN Unavailable +[phone] Jaimie Vernon RN Unavailable Unavailable Ruth Riddle DPM, Podiatry /Foot and Ankle Surgery Unavailable Marquise Hanley MD Unavailable +[phone] Vlad Ramey MD Unavailable +[phone] Joesph Crowe MD Unavailable +[phone] Michelle Padilla RN Unavailable Unavaila ble Vlad Ramey MD Unavailable +[phone] Marquise Hanley MD Unavailable +[phone] Wagner Oliver MD Unavailable +[phone] Laura Epperson NP Unavailable +[phone] Thom Taveras MD Unavailable +[phone] Joesph Crowe MD Unavailable +[phone] Joesph Crowe MD Unavailable +[phone] Adonay Haq MD Unavailable +[phone] Denilson Srinivasan MD Unavailable + [phone] Jason Alvares MD Unavailable Ruth Riddle DPM, Podiatry /Foot and Ankle Surgery Unavailable Omar Carmona MD Primary Care Provider +[phone] Jignesh Mathias MD Unavailable Adonay Haq MD Unavailable +1- Omar Carmona MD Unavailable +[phone] Jason Alvares MD Unavailable Jignesh Mathias MD Unavailable Ayad Lopez PhD LP Unavailable +[phone] Gavi Nieto PA-C Unavailable +[phone] Encounter Details Date Type Department Care Team (Late st Contact Info) Description 05/26/[address] [facility] [address] [address] Jan Mahmood MD 516 [facility] [address] [place] [address] Social History Tobacco Use Types [...] than three times a week 08/27/2021 Attends [employer] Day Services Not on file 08/27 Do you belong to any clubs o r organizations such as mosque groups, unions, fraternal or athletic groups, or [...] Answer Date Recorded PHQ-2 Score 2 03/15/2023 [facility] of Occupat [...] place to sleep or slept in a custodial (including now)? No 08/27/2021 Adolescent Education Answer Date Record ed Getting School Help Needed Not on file 05/08 Comments No Sex and Gender Information Value Date Recorded Sex Assigned at Female 09/12/2020 12:05 PM MANAGEMENT PLANNER Legal Sex Female 3:26 AM MANAGEMENT PLANNER Gender Identity Female 09/12/2020 12:05 PM MANAGEMENT PLANNER Sexual Orientation Straight 12/19/2021 10 :44 AM [...] Description 03/26/2025 11:00 AM CDT Therapy Visit [address] [phone] Jason Alvares MD [address] 335095 Chaya Castillo OTR FV [address] [address] 03/29/2025 10:30 AM CDT Therapy Visit [facility] [address] [place] [address] [phone] [place] [address] [address] [place], [place] 568677 04/02/2025 11:00 AM CDT Therapy Visit [address] [phone] Jason Alvares MD [address] [place] [address] [phone] Chaya Castillo, OTR [facility] [place] 150 [facility] [place] [address] 04/11/2025 12:30 PM CDT Office Visit [facility] [address] 4th [place] [phone] Omar Carmona MD [address] [place] [address] 04/12/2025 2:15 PM CDT Therapy Visit [facility] 150 [place] [phone] Jason Alvares MD [address] [place] [address] Chaya Castillo OTR [facility] [place] 150 [place] [address] 04/16/2025 11:00 AM CDT Therapy Visit [facility] 150 [place] [phone] Jason Alvares MD [address] [place] [address] [phone] Chaya Castillo OTR [facility] [place] 150 [place] [address] 04/23/2025 11:00 AM CDT [facility] 150 [place] [phone] Jason Alvares MD [address] [place] [address] Chaya Castillo OTR [facility] [place] 150 [place] [address] 04/30/2025 11:00 AM CDT Therapy Visit [facility] 150 [place] [phone] Jason Alvares MD [address] [place] [address] 295 [place] [address] Cahya Castillo, OTR [facility] 150 [place] [address] 05/15/2025 12:30 PM CDT Office Visit [address] [phone] Marquise Hanley MD [address] [place] [address] 06/08/2025 9:15 AM CDT Office Visit [facility] [address] [phone] Jignesh Mathias MD [address] [place] [address] 11/05/2025 1:45 PM CDT Office Visit [facility] [address] [address] 3rd [place] [phone] Gavi Nieto PA-C Dermatology [address] [place] [address] [phone] documented as of this encounter Goals Goal [...] documented as of this encounter Care Teams Appointment Scheduler Relationship Specialty Start Date End Date Rio Jaquez MD [address] [place] [address] 05689 PCP - General Family Practice 12/02/10 07/13/24 Omar Carmona MD [address] [place] [address] 23986 PCP - General Family Medicine 07/14/24 Barry Kilpatrick MD [address] [place] [address] [id number] [place], [place] 127895 Neurology 07/19/14 Michelle Hnederson I, RN Nurse Coordinator Neurology 07/19/14 Rio Jaquez MD [address] [place] [address] 439295 Family Practice 10/15/14 Jemima Jaramillo MD stranner 11/20/14 Kelley Chin, TANIA [address] 730355 Nurse Coordinator Cardiology 11/04/15 Sydnee Saleem MD [address] [place] [address] 508 [place], [place] 310855 Cardiology 11/04/15 Karlene Moya MD 516 [place] [address] Ophthalmology 06/24/17 Wilbert Quintero OD 9 [place], [place] 360515 Optometry 06/24/17 Rod Gauthier DPM 9 [place], [place] 773025 Supplemental Nurse Primary Podiatric Medicine 06/21/18 Jan Mahmood MD 516 [facility] 2A [place], [place] 815475 Gastroenterology 11/05/20 Brandt Quintana MD [address] [place] [address] Resident 11/05/20 Jan Mahmood MD 6 [facility] 2A [place] [address] Assigned Gastroenterology Provider 12/01/20 Rio Jaquez MD 909 [facility] [address] 4 [place] [address] Assigned PCP 11/17/20 09/30/24 Dom Eason MD 717 [facility] [address] 353 [place] [address] Internal Medicine 12/02/20 Jayla Plaza, RN Specialty Bus Matron Hepatology 01/09/21 02/13/24 Jaimie Vernon, TANIA Specialty Bus Matron Cardiology 10/28/21 Ruth Riddle, DPM, Podiatry/Foot and Ankle Surgery [address] [address] Assigned Musculoskeletal Provider 11/30/21 09/30/23 Marquise Hanley MD [address] [place] [address] Endocrinology, Diabetes, and Metabolism 03/05/22 Vlad Ramey MD [address] [place] [address] Cardiovascular Disease 05/07/22 Joesph Crowe MD [address] [place] [address] 740515 Surgery 05/07/22 Michelle Padilla RN Specialty Bus Matron Cardiology 07/03/22 Vlad Ramey MD [address] [place] [address] Assigned Heart and Vascular Provider 07/25/22 05/28/23 Marquise Halney MD [address] [place] [address] Assigned Endocrinology Provider 08/15/22 Wagner Oliver MD [address] [place] [address] Critical Care 12/15/22 Laura Epperson NP 717 [facility] 1932 [place] [address] Assigned Nephrology Provider 02/20/23 08/30/24 Thom Taveras MD [address] [place] [address] Assigned Cancer Care Provider 02/06/23 08/20/23 Joesph Crowe MD [address] [place] [address] 6[address] Surgery 03/17/23 Joesph Crowe MD [address] [place] [address] 15392 Assigned Surgical Provider 04/03/23 09/30/24 Adonay Haq MD 9 [place], [place] 867435 Internal Medicine 06/14/23OctoberDenilson MD 6405 [facility] [address] [place] [address] Assigned Heart and Vascular Provider 05/29/23 11/28/24 Jason Alvares MD 420 [facility] 295 [place], [place] 840235 Assigned Neuroscience Provider 05/15/23 11/28/24 Ruth Riddle DPM, Podiatry/Foot and Ankle Surgery [address] [place] [address] Assigned Musculoskeletal Provider 10/22/23 Jignesh Mathias MD [address] [place] [address] [phone] Gastroenterology 09/25/24 Adonay Haq MD [address] [place] [address] 807615 Assigned PCP 10/01/24 12/28/24 Omar Carmona MD [address] [place] [address] [phone] Assigned PCP 12/29/24 Jason Alvares MD [address] [place] [address] Assigned Neuroscience Provider 12/29/24 Jignesh Mathias MD [address] [place] [address] 400135 Assigned Surgical Provider 12/29/24 Ayad Lopez, PhD LP [address] [place] [address] 449205 Assigned Behavioral Health Provider 02/28/25 Gavi Nieto PA-C [address] [place] [address] 019395 Physician Edger Runner Dermatology 03/19/25 documented as of this encounter
--- OUTSIDE RECORDS SUMMARY | 2025-03-24 20:31 | XMS_ITS | Encounter Summary ---
Author Organization [facility] Address [address] [place] [address] Care Team Providers Care Decorating Machine Operator Name Role Phone Rio Jaquez MD Primary Care Provider Barry Kilpatrick MD Unavailable Michelle [place] I RN Unavailable [phone] Rio Jaquez MD Unavailable +[phone] Jemima Jaramillo MD Unavailable Unavai Kelley Bautista RN Unavailable [phone] Sydnee Saleem MD Unavailable +[phone] Karlene Moya MD Unavailable +[phone] Wilbert Quintero OD Unavailable +[phone] Rod Gauthier DPM Unavailable Jan Mahmood MD Unavailable +[phone] Brandt Qiuntana MD Unavailable [phone] Jan Mahmood MD Unavailable +[phone] Rio Jaquez MD Unavailable [phone] Dom Eason MD Unavailable Jayla Plaza RN Unavailable +[phone] Jaimie Vernon RN Unavailable Unavailable Ruth RiddleM, Podiatry /Foot and Ankle Surgery Unavailable Marquise Hanley MD Unavailable +[phone] Vlad Ramey MD Unavailable +[phone] Joesph Crowe MD Unavailable + [phone] Michelle Padilla RN Unavailable Unavaila ble Marquise Hanley MD Unavailable +[phone] Wagner Oliver MD Unavailable +[phone] Laura Epperson NP Unavailable +[phone] Thom Taveras MD Unavailable +[phone] Joesph Crowe MD Unavailable + [phone] Joesph Crowe MD Unavailable + [phone] Adonay Haq MD Unavailable [phone] Denilson Srinivasan MD Unavailable + [phone] Jason Alvares MD Unavailable Ruth Riddle DPM, Podiatry /Foot and Ankle Surgery Unavailable Omar Carmona MD Primary Care Provider [phone] Jignesh Mathias MD Unavailable Adonay Haq MD Unavailable +[phone] Omar Carmona MD Unavailable +[phone] Jason Alvares MD Unavailable Jignesh Mathias MD Unavailable Ayad Lopez PhD LP Unavailable [phone] Gavi Nieto PA-C Unavailable +[phone] Encounter Details Date Type Department Care Team (Late st Contact Info) Description 06/07/2023 MyC Medical Advice [facility] [address] 4th [place] [address] Rio Jaquez MD 909 [facility] 4 [place] [address] Social History Tobacco Use Types Packs/Day Years [...] Answer Date Recorded PHQ-2 Score 2 03/15/2023 [facility] - Occupational [...] in an overnight longterm, or couch-surfing.) Yes 06/06/2023 Are you worried [...] getting things that you need? Yes 06/06/2023 Comments No Sex and Gender Information Value Date Recorded Sex Assigned at Female 09/12/2020 12:05 PM COMMUNITY CASE MANAGER Legal Sex Female 3:26 AM COMMUNITY CASE MANAGER Gender Identity Female 09/12/2020 12:05 PM COMMUNITY CASE MANAGER Sexual Orientation Straight 12/19/2021 10 :44 [...] Description 03/26/2025 11:00 AM CDT Therapy Visit [facility] 150 [place] [phone] Jason Alvares MD [address] [place] [address] 642155 Chaya Castillo OTR [address] [address] 03/29/2025 10:30 AM CDT Therapy Visit [facility] [address] [place] [phone] [place] [address] [place] [address] 04/02/2025 11:00 AM CDT Therapy Visit [facility] 150 [place] [phone] Jason Alvares MD [address] [place] [address] 634425 Chaya Castillo, OTR [facility] 150 [place] [address] 04/11/2025 12:30 PM CDT Office Visit [facility] Primary Care [address] 4th [place] [phone] Omar Carmona MD [address] [place] [address] 04/12/2025 2:15 PM CDT Therapy Visit [facility] [place] [phone] Jason Alvares MD [address] [place] [address] Chaya Castillo OTR [facility] 150 [place] [address] 04/16/2025 11:00 AM CDT Therapy Visit [facility] 150 [place] [phone] Jason Alvares MD [address] [place] [address] Chaya Castillo OTR [facility] 150 [place] [address] 04/23/2025 11:00 AM CDT Therapy Visit [facility] 150 [place] [address]-803214 Jason Alvares MD [address] [place] [address] Chaya Castillo OTR [facility] 150 [place] [address] 04/30/2025 11:00 AM CDT Therapy Visit [facility] 150 [place] [phone] Jason Alvares MD 420 [facility] 295 [place], [place] 038815 Chaya Castillo, OTR [address] [address] 05/15/2025 12:30 PM CDT Office Visit [address] [phone] Marquise Hanley MD [address] [place] [address] 449065 06/08/2025 9:15 AM CDT Office Visit [facility] [address] [phone] Jignesh Mathias MD [address] [place] [address] 949525 11/05/2025 1:45 PM CDT Office Visit [facility]ermatology Clinic [address] 3rd [place] [address] Gavi Nieto PA-C Dermatology [address] [place] [address] [phone] documented as of this encounter Goals Goal [...] documented as of this encounter Care Teams Decorating Machine Operator Relationship Specialty Start Date End Date Rio Jaquez MD [address] [place] [address] 80716 PCP - General Family Practice 12/02/10 07/13/24 Omar Carmona MD [address] [place] [address]707 PCP - General Family Medicine 07/14/24 Barry Kilpatrick MD [address] [place] [address] [id number] [place], [place] 540485 Neurology 07/19/14 Michelle [place] RN Nurse Coordinator Neurology 07/19/14 Rio Jaquez MD [address] [place] [address] 492875 Family Practice 10/15/14 Jemima Jaramillo MD video game tester 11/20/14 Kelley Chin, TANIA [address] 727875 Nurse Coordinator Cardiology 11/04/15 Sydnee Saleem MD [address] [place] [address] 508 [place], [place] [phone] Cardiology 11/04/15 Karlene Moya MD [address] [place] [address] [phone] Ophthalmology 06/24/17 Wilbert Quintero, OD 9 [place] [address] Optometry 06/24/17 Rod Gauthier DPM [address] [place] [address] Siebel Architect Primary Podiatric Medicine 06/21/18 Jan Mahmood MD [address] [place] [address] 2A [place] [address] Gastroenterology 11/05/20 Brandt Quintana MD 1414 [place] [address] Resident 11/05/20 Jan Mahmood MD [address] [place] [address] Assigned Gastroenterology Provider 12/01/20 Rio Jaquez MD 9 [facility] 4 [place] [address] Assigned PCP 11/17/20 09/30/24 Dom Eason MD 717 [facility] 353 [place] [address] Internal Medicine 12/02/20 Jayla Plaza, RN Specialty Rink Rat Hepatology 01/09/21 02/13/24 Jaimie Vernon, TANIA Specialty Rink Rat Cardiology 10/28/21 Ruth Riddle DPM, Podiatry/Foot and Ankle Surgery [address] [place] [address] Assigned Musculoskeletal Provider 11/30/21 09/30/23 Marquise Hanley MD [address] [place] [address] Endocrinology, Diabetes, and Metabolism 03/05/22 Vlad Ramey MD [address] [place] [address] 41030 Cardiovascular Disease 05/07/22 Joesph Crowe MD [address] [place] [address] Surgery 05/07/22 Michelle Padilla RN Specialty Rink Rat Cardiology 07/03/22 Marquise Hanley MD [address] [place] [address] Assigned Endocrinology Provider 08/15/22 Wagner Oliver MD [address] [place] [address] Critical Care 12/15/22 Laura Epperson, STAFF NUCLEAR WEAPONS OFFICER 717 [facility] 1932 [place] [address] Assigned Nephrology Provider 02/20/23 08/30/24 Thom Taveras MD [address], [address] [place] [address] Assigned Cancer Care Provider 02/06/23 08/20/23 Joesph Crowe MD [address] [place] [address] 6[address] Surgery 03/17/23 Joesph Crowe MD [address] [place] [address] 8[address]68 Assigned Surgical Provider 04/03/23 09/30/24 Adonay Haq MD [address] [place] [address]100 Internal Medicine 06/14/23OctoberDenilson MD [address] [facility] [address] [place] [address] Assigned Heart and Vascular Provider 05/29/23 11/28/24 Jason Alvares MD [address] [place] [address] 295 [place] [address] Assigned Neuroscience Provider 05/15/23 11/28/24 Ruth Riddle DPM, Podiatry/Foot and Ankle Surgery [address] [place] [address] Assigned Musculoskeletal Provider 10/22/23 Jignesh Mathias MD [address] [place] [address]07 Gastroenterology 09/25/24 Adonay Haq MD [address] [place] [address] Assigned PCP 10/01/24 12/28/24 Omar Carmona MD [address] [place] [address] [phone] Assigned PCP 12/29/24 Jason Alvares MD [address] [place] [address] 638375 Assigned Neuroscience Provider 12/29/24 Jignesh Mathias MD [address] [place] [address] 037575 Assigned Surgical Provider 12/29/24 Ayad Lopez, PhD LP [address] [place] [address] 092605 Assigned Behavioral Health Provider 02/28/25 Gavi Nieto PA-C [address] [place] [address] 894575 Physician Fire Lieutenant Marine Dermatology 03/19/25 documented as of this encounter
--- OUTSIDE RECORDS SUMMARY | 2025-03-24 20:32 | XMS_ITS | Encounter Summary ---
Author Organization [facility] Address [address] [place] [address] 26545 Care Team Providers Care Senior Industrial Engineer Name Role Phone Rio Jaquez MD Primary Care Provider Barry Kilpatrick MD Unavailable Michelle [place] RN Unavailable [phone] Rio Jaquez MD Unavailable +[phone] Jemima Jaramillo MD Unavailable Unavai Kelley Bautista RN Unavailable +[phone] Sydnee Saleem MD Unavailable +[phone] Karlene Moya MD Unavailable +[phone] Wilbert Quintero OD Unavailable +[phone] Rod Gauthier DPM Unavailable +[phone] Nallely Hogue RN Unavailable Unavailable Jan Mahmood MD Unavailable +[phone] Brandt Quintana MD Unavailable Jan Mahmood MD Unavailable +[phone] Rio Jaquez MD Unavailable +[phone] Dom Eason MD Unavailable +[phone] Jayla Plaza RN Unavailable +[phone] Sydnee [...] Unavailable +[phone] Dom Eason MD Unavailable +[phone] Wagner Oliver MD Unavailable +[phone] ZeenatLaura rodriguez NP Unavailable +[phone] Thom Taveras MD Unavailable +[phone] Joesph Crowe MD Unavailable +[phone] Joesph Crowe MD Unavailable + [phone] Adonay Haq MD Unavailable +[phone] Denilson Srinivasan MD Unavailable + [phone] [facility] Un[facility] Ruth Riddle DPM, Podiatry /Foot and Ankle Surgery Unavailable Omar Carmona MD Primary Care Provider +[phone] Jignesh Mathias MD Unavailable Adonay Haq MD Unavailable +1- Omar Carmona MD Unavailable [phone] Jason Alvares MD Unavailable Jignesh Mathias MD Unavailable Ayad Lopez PhD LP Unavailable +[phone] Gavi NietoC Unavailable [phone] Encounter Details Date Type Department Care Team (Late st Contact Info) Description 05/24/2022 MyC Medical Advice Initial Department Lizbeth Lopes [...] PHQ-2 Answer Date Recorded PHQ-2 Score 1 05/07/2022 [facility] of Occupat ional Health - Occupational Stress [...] Sex Assigned at Female 09/12/2020 12:05 PM LEGAL SUPPORT SPECIALIST Legal Sex Female 3:26 AM LEGAL SUPPORT SPECIALIST Gender Identity Female 09/12/2020 12:05 PM LEGAL SUPPORT SPECIALIST Sexual Orientation Straight 12/19/2021 10 :44 [...] suspected to have Coronavirus/COVID-19? Unable to assess 05/25/2022 8:01 AM CDT documented as of this encounter Plan of Treatment Upcoming Encounters Date Type Department Care Team (Late st Contact Info) Description 03/26/2025 11:00 AM CDT Therapy Visit [facility] 150 [place] [phone] Jason Alvares MD [address] [place] [address] 876995 Chaya Castillo OTR [facility] 150 [place], [place] 607947 03/29/2025 10:30 AM CDT Therapy Visit [facility] [address] [facility] [address] [place] [phone] [place] [address]EL 300 [place] [address] 04/02/2025 11:00 AM CDT Therapy Visit [facility] 150 [place] [phone] Jason Alvares MD [address] [place] [address] 947985 Chaya Castillo OTR [facility] 150 [place] [address] 04/11/2025 12:30 PM CDT Office Visit [facility] Clinic [address] 4th [place] [phone] Omar Carmona MD [address] [place] [address] 04/12/2025 2:15 PM CDT [facility] [address] [place] [phone] Jason Alvares MD [address] [place] [address] Chaya Castillo OTR [facility] 150 [facility] [place] [address] 04/16/2025 11:00 AM CDT [facility] [address] [place] [phone] Jason Alvares MD [address] [place] [address] 340[address] Chaya Castillo OTMari [facility] 150 [place] [address] 04/23/2025 11:00 AM CDT Therapy [facility] [address] [place] [phone] Jason Alvares MD [address] [place] [address] Chaya Castillo OTR [facility] 150 [place] [address] 04/30/2025 11:00 AM CDT Therapy Visit [facility] Rehabilitation Services [facility] 150 [place] [phone] Jason Alvares MD 420 [facility] 295 [place] [address] Chaya Castillo, OTR [facility] 150 [place] [address] 05/15/2025 12:30 PM CDT Office Visit [address] [phone] Marquise Hanley MD [address] [place] [address] 06/08/2025 9:15 AM CDT Office Visit [facility] Hepatology Clinic [address] [phone] Jignesh Mathias MD [address] [place] [address] 378535 11/05/2025 1:45 PM CDT Office Visit [facility] Dermatology Clinic [address] 3rd [place] [address] Gavi Nieto PA-C Dermatology [address] [place] [address] 70699 documented as of this encounter Goals Goal [...] documented as of this encounter Care Teams Senior Industrial Engineer Relationship Specialty Start Date End Date Rio Jaquez MD [address] [place] [address] 4 [place] [address] PCP - General Family Practice 12/02/10 07/13/24 Omar Carmona MD [address] [place] [address] 906235 PCP - General Family Medicine 07/14/24 Barry Kilpatrick MD [address] [place] [address] OF3216GW [place], [place] 398365 Neurology 07/19/14 Michelle [place] I, RN Nurse Coordinator Neurology 07/19/14 Rio Jaquez MD [address] [place] [address] 4 [place], [place] 188405 Family Practice 10/15/14 Jemima Jaramillo MD mine motor engineer 11/20/14 Kelley Chin, RN [facility] [address] [place] [address] 309535 Nurse Coordinator Cardiology 11/04/15 Sydnee Saleem MD [address] [place] [address] 508 [place] [address] Cardiology 11/04/15 Karlene Moya MD [address] [place] [address] Ophthalmology 06/24/17 Wilbert Quintero OD [address] [place] [address] 44[address] Optometry 06/24/17 Rod Gauthier DPM [address] [place] [address] 80779 Psych Social Worker Primary Podiatric Medicine 06/21/18 Nallely Hogue, TANIA Registered Nurse 02/20/19 11/23/22 Jan Mahmood MD [address] [place] [address] 26958 MD Gastroenterology 11/05/20 Brandt Quintana MD [address] [place] [address] 49560 Resident 11/05/20 Jan Mahmood MD [address] [place] [address] 2[address] [place] [address] Assigned Gastroenterology Provider 12/01/20 Rio Jaquez MD [address] [place] [address] 4 [place] [address] Assigned PCP 11/17/20 09/30/24 Dom Eason MD 717 [facility] 353 [place] [address] Internal Medicine 12/02/20 Jayla Plaza, RN Specialty Clarity Developer Hepatology 01/09/21 02/13/24 [place] [address] [address] Assigned Heart and Vascular Provider 02/02/21 07/24/22 Jaimie Vernon, TANIA Specialty Clarity Developer Cardiology 10/28/21 Ruth Riddle DPM, Podiatry/Foot and Ankle Surgery [address] [address] Assigned Musculoskeletal Provider 11/30/21 09/30/23 Marquise Hanley MD [address] [place] [address] 692085 Endocrinology, Diabetes, and Metabolism 03/05/22 Vlad Ramey MD [address] [place] [address] 912555 Cardiovascular Disease 05/07/22 Joesph Crowe MD [address] [place] [address] 693985 Surgery 05/07/22 Luis Arrington MD [address] [place] [address] 00401 Assigned Neuroscience Provider 05/16/22 05/14/23 Michelle Padilla RN Specialty Clarity Developer Cardiology 07/03/22 Vlad Ramey MD [address] [place] [address] 323935 Assigned Heart and Vascular Provider 07/25/22 05/28/23 Marquise Hanley MD 9 [place] [address] Assigned Endocrinology Provider 08/15/22 Dom Eason MD 717 [facility] MICHAEL 353 [place] [address] Assigned Nephrology Provider 11/28/22 02/19/23 Wagner Oliver MD [address] [place] [address] Critical Care 12/15/22 Laura Epperson NP 717 [facility] 1932 [place] [address] Assigned Nephrology Provider 02/20/23 08/30/24 Thom Taveras MD [facility] [address] [place] [address] Assigned Cancer Care Provider 02/06/23 08/20/23 Joesph Crowe MD [address] [place] [address] 20204 Surgery 03/17/23 Joesph Crowe MD [address] [place] [address] 97776 Assigned Surgical Provider 04/03/23 09/30/24 Adonay Haq MD [address] [place] [address] 13293 Internal Medicine 06/14/23OctoberDenilson MD [address] [place], [place] 054615 Assigned Heart and Vascular Provider 05/29/23 11/28/24 Jason Alvares MD [address] [place] [address] 295 [place], [place] 943725 Assigned Neuroscience Provider 05/15/23 11/28/24 Ruth Riddle, DPM, Podiatry/Foot and Ankle Surgery [address] [place], [place] 077947 Assigned Musculoskeletal Provider 10/22/23 Jignesh Mathias MD [address] [place] [address] 747645 Gastroenterology 09/25/24 Adonay Haq MD [address] [place] [address] 813585 Assigned PCP 10/01/24 12/28/24 Omar Carmona MD [address] [place] [address] 569615 Assigned PCP 12/29/24 Jason Alvares MD [address] [place] [address] 295 [place], [place] 959375 Assigned Neuroscience Provider 12/29/24 Jignesh Mathias MD [address] [place] [address] 43449 Assigned Surgical Provider 12/29/24 Ayad Lopez, PhD LP [address] [place] [address] 243105 Assigned Behavioral Health Provider 02/28/25 Gavi Nieto PA-C 500 [place], [place] 850145 Physician Contract Attorney Dermatology 03/19/25 documented as of this encounter
--- OUTSIDE RECORDS SUMMARY | 2025-03-24 20:32 | XMS_ITS | Encounter Summary ---
Author Organization [facility] Address [address] [place] [address] 31117 Care Team Providers Care Upfitter Name Role Phone Rio Jaquez MD Primary Care Provider Barry Kilpatrick MD Unavailable Michelle [place] RN Unavailable [phone] Rio Jaquez MD Unavailable +[phone] Jemima Jaramillo MD Unavailable Unavai Kelley Bautista RN Unavailable +[phone] Sydnee Saleem MD Unavailable +[phone] Karlene Moya MD Unavailable +[phone] Wilbert Quintero OD Unavailable +[phone] Rod Gauthier DPM Unavailable +[phone] Nallely Hogue RN Unavailable Unavailable Jna Mahmood MD Unavailable +[phone] Brandt Quintana MD Unavailable Jan Mahmood MD Unavailable +[phone] Rio Jaquez MD Unavailable +[phone] Dom Eason MD Unavailable +[phone] Jayla Plaza RN Unavailable +[phone] Sydnee [...] Unavailable +[phone] Dom Eason MD Unavailable +[phone] Wagner Oliver MD Unavailable +[phone] ZeenatLaura rodriguez NP Unavailable +[phone] Thom Taveras MD Unavailable +[phone] Joesph Crowe MD Unavailable +[phone] Joesph Crowe MD Unavailable + [phone] Adonay Haq MD Unavailable +[phone] Denilson Srinivasan MD Unavailable + [phone] [facility] Un[facility] Ruth Riddle DPM, Podiatry /Foot and Ankle Surgery Unavailable Omar Carmona MD Primary Care Provider +[phone] Jignesh Mathias MD Unavailable Adonay Haq MD Unavailable +1- Omar Carmona MD Unavailable Jason Alvares MD Unavailable Jignesh Mathias MD Unavailable Ayad Lopez PhD LP Unavailable [phone] Gavi Nieto PA-C Unavailable +[phone] Encounter Details Date Type Department Care Team (Late st Contact Info) Description 06/22/2022 MyC Medical Advice [facility] Neurology Clinic [address] 3rd [place] [address] Jason Alvares MD [address] [facility] 295 [place] [address] Seizures, post-traumatic (H) Social History Tobacco Use Types Packs/Day [...] any clubs o r organizations such as yazidism groups, unions, fraternal or athletic groups, or [...] Answer Date Recorded PHQ-2 Score 1 06/17/2022 [facility] - Occupational Stress Questionnaire Answer Date [...] Sex Assigned at Female 09/12/2020 12:05 PM COTTON BUYER Legal Sex Female 3:26 AM COTTON BUYER Gender Identity Female 09/12/2020 12:05 PM COTTON BUYER Sexual Orientation Straight 12/19/2021 10 :44 AM [...] was confirmed or suspected to have Coronavirus/COVID-19? Yes 06/17/2022 8:17 AM COTTON BUYER documented as of this encounter Plan of Treatment Upcoming Encounters Date Type Department Care Team (Late st Contact Info) Description 03/26/2025 11:00 AM CDT Therapy Visit [address] [phone] Jason Alvares MD 420 [facility] 295 [place], [place] 991095 Chaya Castillo, LETA [address] [address] 03/29/2025 10:30 AM CDT Therapy Visit [facility] [address] [place] [phone] [place] [address] [place] [address] [place], [place] 95[address] 04/02/2025 11:00 AM CDT Therapy Visit [address] [phone] Jason Alvares MD [address] [place] [address] Chaya Castillo, OTR [facility] [address] [facility] [place] [address] 04/11/2025 12:30 PM CDT Office Visit [facility] Primary Care Clinic [address] 4th [place] [phone] Omar Carmona MD [address] [place] [address] 871245 04/12/2025 2:15 PM CDT [facility] 150 [place] [phone] Jason Alvares MD [address] [place] [address] Chaya Castillo [facility]TR [facility] 150 [place] [address] 04/16/2025 11:00 AM CDT Therapy [facility] [address] [place] [address] Jason Alvares MD [address] [place] [address] Chaya Castillo OTR [facility] 150 [place] [address] 04/23/2025 11:00 AM CDT Therapy Visit [facility] [address] [facility] [place] [address] Jason Alvares MD [address] [place] [address] Chaya Castillo OTR [address] [address] 04/30/2025 11:00 AM CDT Therapy Visit [facility] Rehabilitation Services [address] [phone] Jason Alvares MD [address] [place] [address] Chaya Castillo OTR [address] [address] 05/15/2025 12:30 PM CDT Office Visit [address] [phone] Marquise Hanley MD [address] [place] [address] 395505 06/08/2025 9:15 AM CDT Office Visit [facility] Hepatology Clinic [address] [phone] Jignesh Mathias MD [address] [place] [address] 749155 11/05/2025 1:45 PM CDT Office Visit [facility] Dermatology Clinic [address] 3rd [place] [address] Gavi Nieto PA-C Dermatology [address] [place] [address] documented as of this encounter Goals Goal Patient Goal Type Associated Problems Recent Progress Patient-Stated? Author Quit smoking / using tobacco Lifestyle No Rio Jaquez MD Note: 06/25/14 planned quit date documented as of this encounter Visit Diagnoses Diagnosis Seizures, post-traumatic (H) Post traumatic seizures documented in this encounter Additional Health Concerns Infection Onset Date Last Indicated Resolved Time MRSA Comment:Added from external infection. 10/23/2020 10/21/2020 Rule Out COVID-19 02/09/2024 02/09/2024 02/09/2024 1:52 AM CDT Assessment Noted Time PHQ-9 Depression Total Score: 6 05/07/20 22 8:40 AM CDT documented as of this encounter Care Teams Upfitter Relationship Specialty Start Date End Date Rio Jaquez MD [address] [place] [address] PCP - General Family Practice 12/02/10 07/13/24 Omar Carmona MD [address] [place] [address] PCP - General Family Medicine 07/14/24 Barry Kilpatrick MD [address] [place] [address] DS3570LE [place] [address] Neurology 07/19/14 Michelle [place] RN Nurse Coordinator Neurology 07/19/14 Rio Jaquez MD [address] [place] [address] 26196 Family Practice 10/15/14 Jemima Jaramillo MD car hop 11/20/14 Kelley Chin RN [address] 101165 Nurse Coordinator Cardiology 11/04/15 Sydnee Saleem MD 420 [facility] 508 [place] [address] Cardiology 11/04/15 Karlene Moya MD 516 [place], [place] 458285 Ophthalmology 06/24/17 Wilbert Quintero, OD 909 [place], [place] 722895 Optometry 06/24/17 Rod Gauthier DPM 909 [place], [place] 701945 Science Intern Primary Podiatric Medicine 06/21/18 Nallely Hogue, RN Registered Nurse 02/20/19 11/23/22 Jan Mahmood MD [address] [place] [address] 2A [place], [place] 368005 Gastroenterology 11/05/20 Brandt Quintana MD 1414 [place] [address] Resident 11/05/20 Jan Mahmood MD 6 [facility] 2A [place] [address] Assigned Gastroenterology Provider 12/01/20 Rio Jaquez MD 909 [facility] 4 [place], [place] 089885 Assigned PCP 11/17/20 09/30/24 Dom Eason MD [address] [place] [address]605 Internal Medicine 12/02/20 Jayla Plaza, RN Specialty Private Eye Hepatology 01/09/21 02/13/24 Sydnee Saleem MD [address] [address] Assigned Heart and Vascular Provider 02/02/21 07/24/22 Jaimie Vernon, TANIA Specialty Private Eye Cardiology 10/28/21 Ruth Riddle DPM, Podiatry/Foot and Ankle Surgery 79657 [facility] 300 [place] [address] Assigned Musculoskeletal Provider 11/30/21 09/30/23 Marquise Hanley MD [address] [place] [address] 389665 Endocrinology, Diabetes, and Metabolism 03/05/22 Vlad Ramey MD [address] [place] [address] 38852 Cardiovascular Disease 05/07/22 Joesph Crowe MD [address] [place] [address] 078215 Surgery 05/07/22 Luis Arrington MD [address] [place] [address] 11193 Assigned Neuroscience Provider 05/16/22 05/14/23 Michelle Padilla, RN Specialty Private Eye Cardiology 07/03/22 Vlad Ramey MD [address] [place] [address] 12170 Assigned Heart and Vascular Provider 07/25/22 05/28/23 Marquise Hanley MD [address] [place] [address] 09[address] Assigned Endocrinology Provider 08/15/22 Dom Eason MD [address] [place] [address] 353 [place] [address] Assigned Nephrology Provider 11/28/22 02/19/23 Wagner Oliver MD [address] [place] [address] Critical Care 12/15/22 Laura Epperson NP [address] [place] [address] 1932 [place] [address] Assigned Nephrology Provider 02/20/23 08/30/24 Thom Taveras MD [address] [place] [address], [address] [place] [address] Assigned Cancer Care Provider 02/06/23 08/20/23 Joesph Crowe MD [address] [place] [address] 50[address] Surgery 03/17/23 Joesph Crowe MD [address] [place] [address] 95863 Assigned Surgical Provider 04/03/23 09/30/24 Adonay Haq MD [address] [place] [address] Internal Medicine 06/14/23October, Denilson Jackson MD [address] [facility] [address] [place], [place] 424155 Assigned Heart and Vascular Provider 05/29/23 11/28/24 Jason Alvares MD [address] 741245 Assigned Neuroscience Provider 05/15/23 11/28/24 Ruth Riddle DPM, Podiatry/Foot and Ankle Surgery [address] [place] [address] Assigned Musculoskeletal Provider 10/22/23 Jignesh Mathias MD [address] [place] [address] 22621 Gastroenterology 09/25/24 Adonay Haq MD [address] [place] [address] Assigned PCP 10/01/24 12/28/24 Omar Carmona MD [address] [place] [address] 353095 Assigned PCP 12/29/24 Jason Alvares MD [address] 448035 Assigned Neuroscience Provider 12/29/24 Jignesh Mathias MD 909 [place], [place] 589335 Assigned Surgical Provider 12/29/24 Ayad Lopez, PhD LP [address] [place] [address] [phone] Assigned Behavioral Health Provider 02/28/25 Gavi Nieto PANavinC 500 [place] [address] Physician Polymerization Oven Operator Dermatology 03/19/25 documented as of this encounter
--- OUTSIDE RECORDS SUMMARY | 2025-03-24 20:32 | XMS_ITS | Encounter Summary ---
Author Organization [facility] Address [address] [place] [address] Care Team Providers Care Insole And Heel Stiffener Name Role Phone Rio Jaquez MD Primary Care Provider Barry Kilpatrick MD Unavailable Michelle Henderson RN Unavailable [phone] Rio Jaquez MD Unavailable +[phone] Jemima Jaramillo MD Unavailable Unavai Kelley Bautista RN Unavailable [phone] Sydnee Saleem MD Unavailable +[phone] Karlene Moya MD Unavailable [phone] Wilbert Quintero OD Unavailable +[phone] Rod Gauthier DPM Unavailable +[phone] Nallely Hogue RN Unavailable Unavailable Larisa Vargas RN Unavailable Unavailable Francisco Lott MD Unavailable +[phone] Greg Ortega MD Unavailable [phone] Jan Mahmood MD Unavailable [phone] Brandt Quintana MD Unavailable +[phone] Jan Mahmood MD Unavailable Rio Jaquez MD Unavailable Dom Eason MD Unavailable [phone] Jayla Plaza RN Unavailable Jayla Plaza RN Unavailable Sydnee Saleem MD Unavailable Phan Coello MD Unavailable Unavailable Cristian Barragan MD Unavailable Dom Eason MD Unavailable [phone] Jaimie Vernon RN Unavailable Unavailable Ruth Riddle DPM, Podiatry /Foot and Ankle Surgery Unavailable Luis Arrington MD Unavailable Jason Alvares MD Unavailable Marquise Hanley MD Unavailable Vlad Ramey MD Unavailable Joesph Crowe MD Unavailable Luis Arrington MD Unavailable Michelle Padilla RN Unavailable Unavaila ble Vlad Ramey MD Unavailable Marquise Hanley MD Unavailable Dom Eason MD Unavailable Wagner Oliver MD Unavailable [phone] Laura Epperson NP Unavailable [phone] Thom Taveras MD Unavailable Joesph Crowe MD Unavailable Joesph Crowe MD Unavailable Adonay Haq MD Unavailable OctoberDenilson MD Unavailable Jason Alvares MD Unavailable Ruth Riddle DPM, Podiatry /Foot and Ankle Surgery Unavailable Omar Carmona MD Primary Care Provider Jignesh Mathias MD Unavailable Adonay Haq MD Unavailable [phone] Omar Carmona MD Unavailable [phone] Jason Alvares MD Unavailable Jignesh Mathias MD Unavailable Ayad Lopez PhD LP Unavailable Gavi Nieto PA-C Unavailable Encounter Details Date Type Department Care Team (Late st Contact Info) Description 01/07/2021 MyC Medical Advice [facility] Hepatology Clinic [address] [address] Jan Mahmood MD [address] [place] [address] Social History Tobacco Use Types Packs/Day [...] Sex Assigned at Female 09/12/2020 12:05 PM 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 No / Unsure 12/13/2020 5:13 PM CDT documented as of this encounter Plan of Treatment Upcoming Encounters Date Type Department Care Team (Late st Contact Info) Description 03/26/2025 11:00 AM CDT Therapy Visit [facility] 150 [place] [phone] Jason Alvares MD [address] [place] [address] [phone] Chaya Castillo, OTR [address] [address] 03/29/2025 10:30 AM CDT Therapy Visit [facility] Specialty Center [address] [facility] [address] [place] [address] [place] [address] [place], [place] [address] 04/02/2025 11:00 AM CDT Therapy Visit [facility] 150 [place] [phone] Jason Alvares MD [address] [place] [address] 296025 Chaya Castillo, OTR [address] [address] 04/11/2025 12:30 PM CDT Office Visit [facility] Primary Care Clinic [address] 4th [place] [phone] Omar Carmona MD [address] [place] [address] 04/12/2025 2:15 PM CDT Therapy Visit [facility] [place] 150 [facility] [place] [address] Jason Alvares MD [address] [place] [address] Chaya Castillo, OTR [facility] 150 [place] [address] 04/16/2025 11:00 AM CDT [facility] 150 [place] [phone] Jason Alvares MD [address] [place] [address] Chaya Castillo OTR [facility] 150 [place] [address] 04/23/2025 11:00 AM CDT [facility] 150 [facility] [place] [phone] Jason Alvares MD [address] [place] [address] Chaya Castillo OTR [facility] 150 [place] [address] 04/30/2025 11:00 AM CDT Therapy [facility] 150 [facility] [place] [phone] Jason Alvares MD [address] [place] [address] Chaya Castillo, OTR [address] [address] 05/15/2025 12:30 PM CDT Office Visit [address] [phone] Marquise Hanley MD [address] [place] [address] 06/08/2025 9:15 AM CDT Office Visit [facility] Hepatology [address] [phone] Jignesh Mathias MD [address] [place] [address] 936775 11/05/2025 1:45 PM CDT Office Visit [facility] Dermatology [address] 3rd [place] [address] Gavi Nieto PA-C Dermatology [address] [place] [address] documented as of this encounter Goals Goal [...] Total Score: 12 09/11/2 021 9:43 AM APPLICATION INFRASTRUCTURE ENGINEER documented as of this encounter Care Teams Insole And Heel Stiffener Relationship Specialty Start Date End Date Rio Jaquez MD [address] [place] [address] 4 [place], [place] 796175 PCP - General Family Practice 12/02/10 07/13/24 Omar Carmona MD [address] [place] [address] 656765 PCP - General Family Medicine 07/14/24 Barry Kilpatrick MD [address] [place] [address] [id number] [place], [place] 704355 Neurology 07/19/14 Michelle Henderson I RN Nurse Coordinator Neurology 07/19/14 Rio Jaquez MD [address] [place] [address] 4 [place], [place] 747675 Family Practice 10/15/14 Jemima Jaramillo MD cigar tobacco rehandler 11/20/14 Kelley Chin, TANIA [address] 104085 Nurse Coordinator Cardiology 11/04/15 Sydnee Saleem MD [address] [place] [address] 508 [place], [place] 527505 Cardiology 11/04/15 Karlene Moya MD [address] [place] [address] Ophthalmology 06/24/17 Wilbert Quintero, OD [address] [place] [address] Optometry 06/24/17 Rod Gauthier DPM [address] [place] [address] [phone] Boat Hoist Operator Primary Podiatric Medicine 06/21/18 Nallely Hogeu, RN Registered Nurse 02/20/19 11/23/22 Larisa Vargas, TANIA Specialty Staple Fiber Washer Cardiology 04/18/19 03/06/22 Francisco Lott MD [address] [place] [address] Assigned Rheumatology Provider 05/31/20 12/13/21 Greg Ortega MD [address] [place] [address] Assigned Surgical Provider 06/23/20 12/06/21 Jan Mahmood MD [address] [place] [address] Gastroenterology 11/05/20 Brandt Quintana MD [address] [place] [address] 00434 Resident 11/05/20 Jan Mahmood MD [address] [place] [address] Assigned Gastroenterology Provider 12/01/20 Rio Jaquez MD [address] [address] Assigned PCP 11/17/20 09/30/24 Dom Eason MD [address] [place] [address] Internal Medicine 12/02/20 Jayla Plaza, RN Specialty Staple Fiber Washer Hepatology 01/09/21 02/13/24 Jayla Plaza, RN Specialty Staple Fiber Washer Hepatology 01/10/21 01/10/21 Sydnee Saleem MD [address] [facility] [address] [place] [address] Assigned Heart and Vascular Provider 02/02/21 07/24/22 Phan Coello MD Assigned Neuroscience Provider 02/21/21 11/22/21 Cristian Barragan MD [address] [place] [address] Assigned Infectious Disease Provider 02/21/21 03/06/22 Dom Eason MD [address] [place] [address] Assigned Nephrology Provider 04/20/21 01/02/22 Jaimie Vernon, RN Specialty Staple Fiber Washer Cardiology 10/28/21 Ruth Riddle, DPM, Podiatry/Foot and Ankle Surgery [address] 810457 Assigned Musculoskeletal Provider 11/30/21 09/30/23 Luis Arrington MD [address] [place] [address] Assigned Neuroscience Provider 11/23/21 01/02/22 Jason Alvares MD [address] [place] [address] Assigned Neuroscience Provider 01/03/22 05/15/22 Marquise Hanley MD [address] [place] [address] Endocrinology, Diabetes, and Metabolism 03/05/22 Vlad Ramey MD [address] [place] [address] 427505 Cardiovascular Disease 05/07/22 Joesph Crowe MD [address] [place] [address] [phone] Surgery 05/07/22 Luis Arrington MD [address] [place] [address] 674605 Assigned Neuroscience Provider 05/16/22 05/14/23 Michelle Padilla RN Specialty Staple Fiber Washer Cardiology 07/03/22 Vlad Ramey MD [address] [place] [address] 402995 Assigned Heart and Vascular Provider 07/25/22 05/28/23 Marquise Hanley MD [address] [place] [address] 236645 Assigned Endocrinology Provider 08/15/22 Dom Eason MD [address] [place] [address]67 Assigned Nephrology Provider 11/28/22 02/19/23 Wagner Oliver MD [address] [place] [address] Critical Care 12/15/22 Laura Epperson NP 717 [facility] 1932 [place] [address] Assigned Nephrology Provider 02/20/23 08/30/24 Thom Taveras MD [facility] [address] [place] [address] Assigned Cancer Care Provider 02/06/23 08/20/23 Joesph Crowe MD [address] [place] [address] Surgery 03/17/23 Joesph Crowe MD [address] [place] [address] 19683 Assigned Surgical Provider 04/03/23 09/30/24 Adonay Haq MD [address] [place] [address] Internal Medicine 06/14/23OctoberDenilson MD [address] [facility] [address] [place] [address] Assigned Heart and Vascular Provider 05/29/23 11/28/24 Jason Alvares MD 420 [facility] 295 [place] [address] Assigned Neuroscience Provider 05/15/23 11/28/24 Ruth Riddle, DPM, Podiatry/Foot and Ankle Surgery [address] [place] [address] Assigned Musculoskeletal Provider 10/22/23 Jignesh Mathias MD [address] [place] [address]336 Gastroenterology 09/25/24 Adonay Haq MD [address] [place] [address] 612765 Assigned PCP 10/01/24 12/28/24 Omar Carmona MD [address] [place] [address] 670025 Assigned PCP 12/29/24 Jason Alvares MD [address] [place] [address] 862835 Assigned Neuroscience Provider 12/29/24 Jignesh Mathias MD [address] [place] [address] 687775 Assigned Surgical Provider 12/29/24 Ayad Lopez, PhD LP [address] [place] [address] 263825 Assigned Behavioral Health Provider 02/28/25 Gavi Nieto, PANavinC [address] [place] [address] 412555 Physician Stem Lead Former Dermatology 03/19/25 documented as of this encounter
--- OUTSIDE RECORDS SUMMARY | 2025-03-24 20:32 | XMS_ITS | Encounter Summary ---
Author Organization [facility] Address [address] [place] [address] Care Team Providers Care Tool Design Drafter Name Role Phone Rio Jaquez MD Primary Care Provider Barry Kilpatrick MD Unavailable Michelle Henderson RN Unavailable [phone] Rio Jqauez MD Unavailable [phone] Jemima Jaramillo MD Unavailable Unavai Kelley Bautista RN Unavailable [phone] Sydnee Saleem MD Unavailable [phone] Karlene Moya MD Unavailable [phone] Wilbert Quintero OD Unavailable +[phone] Rod Gauthier DPM Unavailable +[phone] Nallely Hogue RN Unavailable Unavailable Jan Mahmood MD Unavailable +[phone] Brandt Quintana MD Unavailable [phone] Jan Mahmood MD Unavailable +[phone] Rio Jaquez MD Unavailable +[phone] Dom Eason MD Unavailable +[phone] Jayla Plaza RN Unavailable +[phone] Sydnee [...] Unavailable [phone] Dom Eason MD Unavailable [phone] Wagner Oliver MD Unavailable +[phone] Laura Epperson NP Unavailable +[phone] Thom Taveras MD Unavailable +[phone] Joesph Crowe MD Unavailable + [phone] Joesph Crowe MD Unavailable + [phone] Adonay Haq MD Unavailable +[phone] Denilson Srinivasan MD Unavailable + [phone] Jason Alvares MD Unavailable Ruth Riddle DPM, Podiatry /Foot and Ankle Surgery Unavailable Omar Carmona MD Primary Care Provider +[phone]- Jignesh Mathias MD Unavailable Adonay Haq MD Unavailable +1- Omar Camrona MD Unavailable +[phone] Jason Alvares MD Unavailable Jignesh Mathias MD Unavailable Ayad Lopez PhD Unavailable [phone] Gavi Nieto-C Unavailable [phone] Encounter Details Date Type Department Care Team (Late st Contact Info) Description 05/12/2022 [facility] [address] [place] [address] Luis Arrington MD [address] [place] [address] Social History Tobacco Use Types Packs/Day [...] than three times a week 08/27/2021 Attends [employer] Not on file 08/27 Do you belong to any clubs o r organizations such as anglican groups, unions, fraternal or athletic groups, or [...] Answer Date Recorded PHQ-2 Score 1 05/07/2022 [facility] of Occupat ional [facility] - Occupational Stress Questionnaire Answer Date [...] Sex Assigned at Female 09/12/2020 12:05 PM 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 No / Unsure 05/11/2022 7:41 AM CDT documented as of this encounter Plan of Treatment Upcoming Encounters Date Type Department Care Team (Late st Contact Info) Description 03/26/2025 11:00 AM CDT Therapy Visit [address] [phone] Jason Alvares MD 420 [facility] 295 [place], [place] [address] Chaya Castillo, LETA [address] [address] 03/29/2025 10:30 AM CDT Therapy Visit [facility] Specialty [place] [address] [place] [address] [place] [address] 300 [place], [place] [address] 04/02/2025 11:00 AM CDT Therapy Visit [facility] [address] [place] [address] Jason Alvares MD [address] [place] [address] 985725 Chaya Castillo OTR [facility] 150 [place] [address] 04/11/2025 12:30 PM CDT Office Visit [facility] Primary Care Clinic [address] 4th [place] [phone] Omar Carmona MD [address] [place] [address] 04/12/2025 2:15 PM CDT Therapy Visit [facility] 150 [place] [phone] Jason Alvares MD [address] [place] [address] 882535 Chaya Castillo OTR [facility] 150 [facility] [place] [address] 04/16/2025 11:00 AM CDT Therapy Visit [facility] 150 [facility] [place] [address] Jason Alvares MD [address] [place] [address] Chaya Castillo OTR [facility] 150 [facility] [place] [address] 04/23/2025 11:00 AM CDT Therapy Visit [facility] 150 [place] [address] Jason Alvares MD [address] [place] [address] Chaya Castillo OTR [facility] 150 [place] [address] 04/30/2025 11:00 AM CDT Therapy Visit [facility] 150 [place] [address] Jason Alvares MD [address] [place] [address] Chaya Castillo OTR [address] [address] 05/15/2025 12:30 PM CDT Office Visit [address] [phone] Marquise Hanley MD [address] [place] [address]67 06/08/2025 9:15 AM CDT Office Visit [facility] Hepatology Clinic [address] [phone] Jignesh Mathias MD [address] [place] [address] 11/05/2025 1:45 PM CDT Office Visit [facility] Dermatology Clinic [address] 3rd [place] [address] Gavi Nieto PA-C Dermatology [address] [place] [address] documented as of this encounter Goals Goal [...] documented as of this encounter Care Teams Tool Design Drafter Relationship Specialty Start Date End Date Rio Jaquez MD [address] [place] [address] PCP - General Family Practice 12/02/10 07/13/24 Omar Carmona MD [address] [place] [address] PCP - General Family Medicine 07/14/24 Barry Kilpatrick MD [address] [place] [address] [id number] [place], [place] 510045 Neurology 07/19/14 Michelle Henderson I, RN Nurse Coordinator Neurology 07/19/14 Rio Jaquez MD [address] [place] [address] 011805 Family Practice 10/15/14 Jemima Jaramillo MD healthcare economics manager 11/20/14 Kelley Chin, TANIA [address] 465215 Nurse Coordinator Cardiology 11/04/15 Sydnee Saleem MD 420 [facility] 508 [place], [place] 814375 Cardiology 11/04/15 Karlene Moya MD 6 [place], [place] 183275 Ophthalmology 06/24/17 Wilbert Quintero, OD 909 [place], [place] 915695 Optometry 06/24/17 Rod Gauthier DPM 909 [place], [place] 224665 Channel Business Manager Primary Podiatric Medicine 06/21/18 Nallely Hogue, RN Registered Nurse 02/20/19 11/23/22 Jan Mahmood MD [address] [place] [address] 2A [place], [place] 246915 Gastroenterology 11/05/20 Brandt Quintana MD [address] [place] [address] 88673 Resident 11/05/20 Jan Mahmood MD 6 [facility] 2A [place] [address] Assigned Gastroenterology Provider 12/01/20 Rio Jaquez MD 909 [facility] 4 [place], [place] 365345 Assigned PCP 11/17/20 09/30/24 Dom Eason MD [address] [place] [address] 353 [place] [address] Internal Medicine 12/02/20 Jayla Plaza, RN Specialty Sock Knitter Hepatology 01/09/21 02/13/24 Sydnee Saleem MD 6550 [facility] [address] [place] [address]99 Assigned Heart and Vascular Provider 02/02/21 07/24/22 Jaimie Vernon, TANIA Specialty Sock Knitter Cardiology 10/28/21 Ruth Riddle DPM, Podiatry/Foot and Ankle Surgery [address] [facility] 300 [place] [address] Assigned Musculoskeletal Provider 11/30/21 09/30/23 Jason Alvares MD [address] [place] [address] 295 [place], [place] 963415 Assigned Neuroscience Provider 01/03/22 05/15/22 Marquise Hanley MD [address] [place] [address] 167745 Endocrinology, Diabetes, and Metabolism 03/05/22 Vlad Ramey MD [address] [place] [address] 906765 Cardiovascular Disease 05/07/22 Joesph Crowe MD [address] [place] [address] 320115 Surgery 05/07/22 Luis Arrington MD [address] [place] [address] 47971 Assigned Neuroscience Provider 05/16/22 05/14/23 Michelle Padilla, RN Specialty Sock Knitter Cardiology 07/03/22 Vlad Ramey MD [address] [place] [address] 15826 Assigned Heart and Vascular Provider 07/25/22 05/28/23 Marquise Hanley MD [address] [place] [address] 11041 Assigned Endocrinology Provider 08/15/22 Dom Eason MD [address] [address] Assigned Nephrology Provider 11/28/22 02/19/23 Wagner Oliver MD 6401 [place] [address] Critical Care 12/15/22 Laura Epperson NP [address] [place] [address] 1932 [place] [address] Assigned Nephrology Provider 02/20/23 08/30/24 Thom Taveras MD [facility] [address] [place] [address] Assigned Cancer Care Provider 02/06/23 08/20/23 Joesph Crowe MD [address] [place] [address] 22227 Surgery 03/17/23 Joesph Crowe MD [address] [place] [address] 62788 Assigned Surgical Provider 04/03/23 09/30/24 Adonay Haq MD [address] [place] [address] 18219 Internal Medicine 06/14/23October, Denilson Jackson MD 6405 [facility] [address] [facility] [address]200 [place] [address] Assigned Heart and Vascular Provider 05/29/23 11/28/24 Jason Alvares MD [address] [place] [address] 84521 Assigned Neuroscience Provider 05/15/23 11/28/24 Ruth Riddle DPM, Podiatry/Foot and Ankle Surgery [address] [place] [address] Assigned Musculoskeletal Provider 10/22/23 Jignesh Mathias MD [address] [place] [address] 73277 Gastroenterology 09/25/24 Adonay Haq MD [address] [place] [address] 53693 Assigned PCP 10/01/24 12/28/24 Omar Carmona MD [address] [place] [address] 08346 Assigned PCP 12/29/24 Jason Alvares MD [address] [place] [address] Assigned Neuroscience Provider 12/29/24 Jignesh Mathias MD [address] [place] [address] 55455 Assigned Surgical Provider 12/29/24 Ayad Lopez, PhD LP [address] [place] [address] Assigned Behavioral Health Provider 02/28/25 Gavi Nieto PANavinC [address] [place] [address] [phone] Physician Athletic Gear Custodian Dermatology 03/19/25 documented as of this encounter
--- OUTSIDE RECORDS SUMMARY | 2025-03-24 20:32 | XMS_ITS | Encounter Summary ---
Author Organization [facility] Address [address] [place] [address] Care Team Providers Care Professor Of Special Education Name Role Phone Rio Jaquez MD Primary Care Provider Barry Kilpatrick MD Unavailable Michelle Henderson RN Unavailable [phone] Rio Jaquez MD Unavailable +[phone] Jemima Jaramillo MD Unavailable Unavai Kelley Bautista RN Unavailable [phone] Sydnee Saleem MD Unavailable +[phone] Karlene Moya MD Unavailable +[phone] Wilbert Quintero OD Unavailable +[phone] Rod Gauthier DPM Unavailable +[phone] Nallely Hogue RN Unavailable Unavailable Larisa Vargas RN Unavailable Unavailable Francisco Lott MD Unavailable +[phone] Greg Ortega MD Unavailable +[phone] Jan Mahmood MD Unavailable +[phone] Brandt Quintana MD Unavailable +[phone] Jan Mahmood MD Unavailable Rio Jaquez [...] MD Unavailable Joesph Crowe MD Unavailable [phone] Luis Arrington MD Unavailable Michelle Padilla RN Unavailable Unavaila ble Vlad Ramey MD Unavailable Marquise Hanley MD Unavailable +[phone] Dom Eason MD Unavailable Wagner Oliver MD Unavailable Laura Epperson NP Unavailable [phone] Thom Taveras MD Unavailable Joesph Crowe MD Unavailable +[phone] Joesph Crowe MD Unavailable +[phone] Adonay Haq MD Unavailable [phone] Denilson Srinivasan MD Unavailable Jason Alvares MD Unavailable Ruth Riddle DPM, Podiatry /Foot and Ankle Surgery Unavailable Omar Carmona MD Primary Care Provider [phone] Jignesh Mathias MD Unavailable Adonay Haq MD Unavailable [phone] Omar Carmona MD Unavailable Jason Alvares MD Unavailable Jignesh Mathias MD Unavailable Ayad Lopez PhD LP Unavailable [phone] Gavi Nieto-C Unavailable +[phone] Encounter Details Date Type Department Care Team (Late st Contact Info) Description 01/19/2021 [facility] [address] [address] Jan Mahmood MD [address] [place] [address] Social History Tobacco Use Types Packs/Day Years [...] Sex Assigned at Female 09/12/2020 12:05 PM FRONT DESK REPRESENTATIVE Legal Sex Female 3:26 AM FRONT DESK REPRESENTATIVE Gender Identity Female 09/12/2020 12:05 PM FRONT DESK REPRESENTATIVE Sexual Orientation Straight 12/19/2021 10 :44 AM CDT Occupation Industry Job Start Date Job End Date on disability for FMS Not on file Not on file Not on file COVID-19 Exposure Response Date Recorded In the last month, have you been in contact with someone who was confirmed or suspected to have Coronavirus / COVID-19? No / Unsure 01/11/2021 12:52 PM CDT documented as of this encounter Plan of Treatment Upcoming Encounters Date Type Department Care Team (Late st Contact Info) Description 03/26/2025 11:00 AM CDT Therapy Visit [address] [phone] Jason Alvares MD [address] [place] [address] 124605 Chaya Castillo OTR [address] [id number] 03/29/2025 10:30 AM CDT Therapy Visit [facility] [address] [facility] [address] [place] [phone] [place] [address] [place], [place] [address] 04/02/2025 11:00 AM CDT Therapy Visit [address] [phone] Jason Alvares MD [address] [place] [address] 422175 Chaya Castillo OTR [address] 487807 04/11/2025 12:30 PM CDT Office Visit [facility] [address] 4th [place] [phone] Omar Carmona MD [address] [place] [address] 260935 04/12/2025 2:15 PM CDT Therapy Visit [facility] [address] [place] [address] Jason Alvares MD [address] [place] [address] Chaya Castillo OTR [facility] 150 [place] [address] 04/16/2025 11:00 AM CDT Therapy Visit [address] [phone] Jason Alvares MD [address] [place] [address] Chaya Castillo OTR FV [address] [address] 04/23/2025 11:00 AM CDT Therapy Visit [address] [phone] Jason Alvares MD [address] [place] [address] Chaya Castillo OTR [facility] 150 [place] [address] 04/30/2025 11:00 AM CDT Therapy Visit [address] [phone] Jason Alvares MD [address] [place] [address] Chaya Castillo OTMari [address] [address] 05/15/2025 12:30 PM CDT Office Visit [address] [phone] Marquise Hanley MD [address] [place] [address] 199885 06/08/2025 9:15 AM CDT Office Visit [facility] [address] [phone] Jignesh Mathias MD [address] [place] [address] 275385 11/05/2025 1:45 PM CDT Office Visit [facility] [address] 3rd [place] [address] Gavi Nieto PA-C Dermatology [address] [place] [address] [phone] documented as of this encounter Goals Goal [...] Noted Time PHQ-9 Depression Total Score: 12 09/11/ 021 9:43 AM FRONT DESK REPRESENTATIVE documented as of this encounter Care Teams Professor Of Special Education Relationship Specialty Start Date End Date Rio Jaquez MD [address] [place] [address] 36940 PCP - General Family Practice 12/02/10 07/13/24 Omar Carmona MD [address] [place] [address] 09738 PCP - General Family Medicine 07/14/24 Barry Kilpatrick MD [address] [place] [address] [id number] [place], [place] 512095 Neurology 07/19/14 Michelle Henderson I, RN Nurse Coordinator Neurology 07/19/14 Rio Jaquez MD [address] [place] [address] [phone] Family Practice 10/15/14 Jemima Jaramillo MD immunochemist 11/20/14 Kelley Chin, TANIA [address] 294135 Nurse Coordinator Cardiology 11/04/15 Sydnee Saleem MD [address] [place] [address] 508 [place], [place] 993185 Cardiology 11/04/15 Karlene Moya MD [address] [place] [address] Ophthalmology 06/24/17 Wilbert Quintero, OD [address] [place] [address] 097795 Optometry 06/24/17 Rod Gauthier DPM [address] [place] [address]405 Access Specialist Primary Podiatric Medicine 06/21/18 Nallely Hogue, RN Registered Nurse 02/20/19 11/23/22 Larisa Vargas, TANIA Specialty Trust Manager Cardiology 04/18/19 03/06/22 Francisco Lott MD [address] [place] [address] 526[address] Assigned Rheumatology Provider 05/31/20 12/13/21 Greg Ortega MD [address] [place] [address] Assigned Surgical Provider 06/23/20 12/06/21 Jan Mahmood MD [address] [place] [address] 704[address] Gastroenterology 11/05/20 Brandt Quintana MD [address] [place] [address] Resident 11/05/20 Jan Mahmood MD [address] [place] [address] 65165 Assigned Gastroenterology Provider 12/01/20 Rio Jaquez MD [address] [place] [address] 88454 Assigned PCP 11/17/20 09/30/24 Dom Eason MD [address] [place] [address]30 Internal Medicine 12/02/20 Jayla Plaza, RN Specialty Trust Manager Hepatology 01/09/21 02/13/24 Sydnee Saleem MD [address] [facility] [address] [place] [address] Assigned Heart and Vascular Provider 02/02/21 07/24/22 Phan Coello MD Assigned Neuroscience Provider 02/21/21 11/22/21 Cristian Barragan MD [address] [place] [address] Assigned Infectious Disease Provider 02/21/21 03/06/22 Dom Eason MD [address] [place] [address] Assigned Nephrology Provider 04/20/21 01/02/22 Jaimie Vernon, TANIA Specialty Trust Manager Cardiology 10/28/21 Ruth Riddle DPM, Podiatry/Foot and Ankle Surgery [address] [address] Assigned Musculoskeletal Provider 11/30/21 09/30/23 Luis Arrington MD 909 [place], [place] 564225 Assigned Neuroscience Provider 11/23/21 01/02/22 Jason Alvares MD 420 [facility] 295 [place], [place] 015475 Assigned Neuroscience Provider 01/03/22 05/15/22 Marquise Hanley MD [address] [place] [address] Endocrinology, Diabetes, and Metabolism 03/05/22 Vlad Ramey MD [address] [place] [address]77 Cardiovascular Disease 05/07/22 Joesph Crowe MD [address] [place] [address] 327315 Surgery 05/07/22 Luis Arrington MD [address] [place] [address]266 Assigned Neuroscience Provider 05/16/22 05/14/23 Michelle Padilla, TANIA Specialty Trust Manager Cardiology 07/03/22 Vlad Ramey MD [address] [place] [address] 8[address]14 Assigned Heart and Vascular Provider 07/25/22 05/28/23 Marquise Hanley MD [address] [place] [address] 59640 Assigned Endocrinology Provider 08/15/22 Dom Eason MD [address] [place] [address] 58803 Assigned Nephrology Provider 11/28/22 02/19/23 Wagner Oliver MD [address] [place] [address] Critical Care 12/15/22 Laura Epperson NP 717 [facility] [address] [place] [address] Assigned Nephrology Provider 02/20/23 08/30/24 Thom Taveras MD [address] [place] [address] R105 [place] [address] Assigned Cancer Care Provider 02/06/23 08/20/23 Joesph Crowe MD [address] [place] [address] 57081 Surgery 03/17/23 Joesph Crowe MD [address] [place] [address] 04153 Assigned Surgical Provider 04/03/23 09/30/24 Adonay Haq MD [address] [place] [address] 36814 Internal Medicine 06/14/23OctoberDenilson MD [address] [place] [address] Assigned Heart and Vascular Provider 05/29/23 11/28/24 Jason Alvares MD [address] [place] [address] [address] [place] [address] Assigned Neuroscience Provider 05/15/23 11/28/24 Ruth Riddle DPM, Podiatry/Foot and Ankle Surgery [address] [place] [address] Assigned Musculoskeletal Provider 10/22/23 Jignesh Mathias MD [address] [place] [address] 28154 Gastroenterology 09/25/24 Adonay Haq MD [address] [place] [address] 473665 Assigned PCP 10/01/24 12/28/24 Omar Carmona MD [address] [place] [address] 95136 Assigned PCP 12/29/24 Jason Alvares MD [address] [place] [address] 597345 Assigned Neuroscience Provider 12/29/24 Jignesh Mathias MD [address] [place] [address] 96129 Assigned Surgical Provider 12/29/24 Ayad Lopez, PhD LP [address] [place] [address] 363155 Assigned Behavioral Health Provider 02/28/25 Gavi Nieto PANavinC [address] [place] [address]455 Physician Wire Coater Dermatology 03/19/25 documented as of this encounter
--- OUTSIDE RECORDS SUMMARY | 2025-03-24 20:32 | XMS_ITS | Encounter Summary ---
Author Organization [facility] Address [address] [place] [address] Care Team Providers Care Hospitality Housekeeper Name Role Phone Rio Jaquez MD Primary Care Provider Barry Kilpatrick MD Unavailable Michelle Henderson RN Unavailable [phone] Rio Jaquez MD Unavailable [phone] Jemima Jaramillo MD Unavailable Unavai Kelley Bautista RN Unavailable [phone] Sydnee Saleem MD Unavailable [phone] Karlene Moya MD Unavailable [phone] Wilbert Quintero OD Unavailable +[phone] Rod Gauthier DPM Unavailable +[phone] Nallely Hogue RN Unavailable Unavailable Jan Mahmood MD Unavailable +[phone] Brandt Quintana MD Unavailable +[phone] Jan Mahmood MD Unavailable +[phone] Rio Jaquez MD Unavailable +[phone] Dom Eason MD Unavailable +[phone] Jayla Plaza RN Unavailable +[phone] Sydnee Saleem MD Unavailable Jaimie Vernon RN Unavailable Unavailable Ruth Riddle DPM, Podiatry /Foot and Ankle Surgery Unavailable Jason Alvares MD Unavailable Marquise Hanley MD Unavailable [phone] Vlad Ramey MD Unavailable +[phone] Joesph Crowe MD Unavailable + [phone] Luis Arrington MD Unavailable [phone] Michelle Padilla RN Unavailable Unavaila ble lVad Ramey MD Unavailable +[phone] Marquise Hanley MD Unavailable [phone] Dom Eason MD Unavailable +[phone] Wagner Oliver MD Unavailable +[phone] Laura Epperson NP Unavailable +[phone] Thom Taveras MD Unavailable +[phone] Joesph Crowe MD Unavailable + [phone] Joesph Crowe MD Unavailable + [phone] Adonay Haq MD Unavailable +[phone] Denilson Srinivasan MD Unavailable + [phone] Jason Alvares MD Unavailable Ruth Riddle DPM, Podiatry /Foot and Ankle Surgery Unavailable Omar Carmona MD Primary Care Provider +[phone] Jignesh Mathias MD Unavailable Adonay Haq MD Unavailable +1- Omar Carmona MD Unavailable +[phone] Jason Alvares MD Unavailable Jignesh Mathias MD Unavailable Ayad Lopez PhD Unavailable [phone] Gavi Nieto PA-C Unavailable +[phone] Encounter Details Date Type Department Care Team (Late st Contact Info) Description 04/29/2022 [facility] Medical Advice [facility] [place] [address] [place] [address] Ruth Riddle, DPVik, Podiatry/Foot and Ankle Surgery [address] [place], [place] [address] Social History Tobacco Use Types Packs/Day Years [...] than three times a week 08/27/2021 Attends [employer] Services Not on file 08/27 Do you belong to any clubs o r organizations such as evangelical groups, unions, fraternal or athletic groups, or [...] PHQ-2 Answer Date Recorded PHQ-2 Score 2 04/21/2022 [facility] - [...] to sleep or slept in a senior care (including now)? No 08/27/2021 Comments No Sex and Gender Information Value Date Recorded Sex Assigned at Female 09/12/2020 12:05 PM DOOR WORKER Legal Sex Female 3:26 AM DOOR WORKER Gender Identity Female 09/12/2020 12:05 PM DOOR WORKER Sexual Orientation Straight 12/19/2021 10 :44 [...] confirmed or suspected to have Coronavirus/COVID-19? Yes 04/30/2022 12:12 PM CDT documented as of this encounter Plan of Treatment Upcoming Encounters Date Type Department Care Team (Late st Contact Info) Description 03/26/2025 11:00 AM CDT Therapy Visit [address] [phone] Jason Alvares MD 420 [facility] 295 [place], [place] [phone] Chaya Castillo OTR [address] [address] 03/29/2025 10:30 AM CDT Therapy Visit [facility] [place] [address] [place] [phone] [place] [address] [place], [place] [phone] 04/02/2025 11:00 AM CDT Therapy Visit [facility] [place] [address] [facility] [place] [phone] Jason Alvares MD [address] [place] [address] Chaya Castillo OTR [facility] 150 [place] [address] 04/11/2025 12:30 PM CDT Office Visit [facility] [address] 4th [place] [phone] Omar Carmona MD [address] [place] [address] 04/12/2025 2:15 PM CDT Therapy Visit [facility] 150 [facility] [place] [address] Jason Alvares MD [address] [place] [address] Chaya Castillo, OTR [facility] 150 [place] [address] 04/16/2025 11:00 AM CDT Therapy Visit [facility] 150 [place] [address] Jason Alvares MD [address] [place] [address] Chaya Castillo, OTR [facility] [address] [place] [address] 04/23/2025 11:00 AM CDT Therapy Visit [facility] 150 [place] [address] Jason Alvares MD [address] [place] [address] Chaya Castillo, OTR [facility] 150 [place] [address] 04/30/2025 11:00 AM CDT Therapy Visit [facility] 150 [place] [address] Jason Alvares MD [address] [place] [address] Chaya Castillo OTR [facility] 150 [place] [address] 05/15/2025 12:30 PM CDT Office Visit [address] [phone] Marquise Hanley MD [address] [place] [address] 06/08/2025 9:15 AM CDT Office Visit [facility] [address] [phone] Jignesh Mathias MD [address] [place] [address] 287[address] 11/05/2025 1:45 PM CDT Office Visit [facility] Clinic [address]rd [place] [phone] Gavi Nieto PA-C Dermatology [address] [place] [address] 9[address] documented as of this encounter Goals Goal [...] documented as of this encounter Care Teams Hospitality Housekeeper Relationship Specialty Start Date End Date Rio Jaquez MD [address] [place] [address]20 PCP - General Family Practice 12/02/10 07/13/24 Omar Carmona MD [address] [place] [address] 382625 PCP - General Family Medicine 07/14/24 Barry Kilpatrick MD [address] [place] [address] [id number] [place], [place] 7996[address] Neurology 07/19/14 Michelle Henderson RN Nurse Coordinator Neurology 07/19/14 Rio Jaquez MD [address] [place] [address] 521625 Family Practice 10/15/14 Jemima Jaramillo MD safe technician 11/20/14 Kelley Chin RN [address] [address] Nurse Coordinator Cardiology 11/04/15 Sydnee Saleem MD [address] [place] [address] 508 [place], [place] 320405 Cardiology 11/04/15 Karlene Moya MD [address] [place] [address] 410015 Ophthalmology 06/24/17 Wilbert Quintero, OD [address] [place] [address] 720635 Optometry 06/24/17 Rod Gauthier DPM [address] [place] [address] [phone] Commercial Print Salesman Primary Podiatric Medicine 06/21/18 Nallely Hogue, RN Registered Nurse 02/20/19 11/23/22 Jan Mahmood MD [address] [place] [address]20 Gastroenterology 11/05/20 Brandt Quintana MD [address] [place] [address] 9[address]64 Resident 11/05/20 Jan Mahmood MD [address] [place] [address] 8[address]11 Assigned Gastroenterology Provider 12/01/20 Rio Jaquez MD [address] [place] [address] 485585 Assigned PCP 11/17/20 09/30/24 Dom Eason MD [address] [place] [address] 353 [place] [address] Internal Medicine 12/02/20 Jayla Plaza, RN Specialty R D Intern Hepatology 01/09/21 02/13/24 Sydnee Saleem MD 6550 [facility] [address] [place] [address]85 Assigned Heart and Vascular Provider 02/02/21 07/24/22 Jaimie Vernon, TANIA Specialty R D Intern Cardiology 10/28/21 Ruth Riddle DPM, Podiatry/Foot and Ankle Surgery [address] [facility] 300 [place] [address] Assigned Musculoskeletal Provider 11/30/21 09/30/23 Jason Alvares MD [address] [place] [address] 295 [place] [address] Assigned Neuroscience Provider 01/03/22 05/15/22 Marquise Hanley MD [address] [place] [address] 26296 Endocrinology, Diabetes, and Metabolism 03/05/22 Vlad Ramey MD [address] [place] [address] 18692 Cardiovascular Disease 05/07/22 Joesph Crowe MD [address] [place] [address] 9[address]64 Surgery 05/07/22 Luis Arrington MD [address] [place] [address] Assigned Neuroscience Provider 05/16/22 05/14/23 Michelle Padilla, TANIA Specialty R D Intern Cardiology 07/03/22 Vlad Ramey MD [address] [place] [address] 30141 Assigned Heart and Vascular Provider 07/25/22 05/28/23 Marquise Hanley MD [address] [place] [address] 89725 Assigned Endocrinology Provider 08/15/22 Dom Eason MD 7 [facility] 353 [place] [address] Assigned Nephrology Provider 11/28/22 02/19/23 Wagner Oliver MD [address] [place] [address] Critical Care 12/15/22 Laura Epperson NP [address] [place] [address] 1932 [place] [address] Assigned Nephrology Provider 02/20/23 08/30/24 Thom Taveras MD [facility] [address], [address] [place] [address] Assigned Cancer Care Provider 02/06/23 08/20/23 Joesph Crowe MD [address] [place] [address] 26929 Surgery 03/17/23 Joesph Crowe MD [address] [place] [address] 84278 Assigned Surgical Provider 04/03/23 09/30/24 Adonay Haq MD [address] [place] [address]96 Internal Medicine 06/14/23OctoberDenilson MD 6405 [facility] [address] [place] [address] Assigned Heart and Vascular Provider 05/29/23 11/28/24 Jason Alvares MD [address] [place] [address] 33470 Assigned Neuroscience Provider 05/15/23 11/28/24 Ruth Riddle DPM, Podiatry/Foot and Ankle Surgery [address] [place], [place] 821657 Assigned Musculoskeletal Provider 10/22/23 Jignesh Mathias MD [address] [place] [address] 99846 Gastroenterology 09/25/24 Adonay Haq MD [address] [place] [address] 35086 Assigned PCP 10/01/24 12/28/24 Omar Carmona MD [address] [place] [address] 142115 Assigned PCP 12/29/24 Jason Alvares MD [address] [place] [address] 342875 Assigned Neuroscience Provider 12/29/24 Jignesh Mathias MD [address] [place] [address] [phone] Assigned Surgical Provider 12/29/24 Ayad Lopez, PhD LP [address] [place] [address] 014095 Assigned Behavioral Health Provider 02/28/25 Gavi Nieto, PA-C [address] [place] [address] 440275 Physician Concrete Hopper Operator Dermatology 03/19/25 documented as of this encounter
--- OUTSIDE RECORDS SUMMARY | 2025-03-24 20:32 | XMS_ITS | Encounter Summary ---
Author Organization [facility] Address [address] [place] [address] 07263 Care Team Providers Care Seat Cover Maker Name Role Phone Rio Jaquez MD Primary Care Provider Barry Kilpatrick MD Unavailable Michelle Henderson RN Unavailable [phone] Rio Jaquez MD Unavailable [phone] Jemima Jaramillo MD Unavailable Unavai Kelley Bautista RN Unavailable [phone] Sydnee Saleem MD Unavailable [phone] Karlene Moya MD Unavailable [phone] Wilbert Quintero OD Unavailable +[phone] Rod Gauthier DPM Unavailable +[phone] Nallely Hogue RN Unavailable Unavailable Larisa Vargas RN Unavailable Unavailable Francisco Lott MD Unavailable [phone] Greg Ortega MD Unavailable [phone] Jan Mahmood MD Unavailable [phone] Brandt Quintana MD Unavailable [phone] Jan Mahmood MD Unavailable Rio Jaquez [...] Unavaila ble Vlad Ramey MD Unavailable Marquise Hanely MD Unavailable [phone] Dom Eason MD Unavailable Wagner Oliver MD Unavailable Laura Epperson NP Unavailable [phone] Thom Taveras MD Unavailable +[phone] Joesph Crowe MD Unavailable [phone] Joesph Crowe MD Unavailable [phone] Adonay Haq MD Unavailable [phone] Denilson Srinivasan MD Unavailable [phone] Jason Alvares MD Unavailable Ruth Riddle DPM, Podiatry /Foot and Ankle Surgery Unavailable Omar Carmona MD Primary Care Provider Jignesh Mathias MD Unavailable Adonay Haq MD Unavailable [phone] Omar Carmona MD Unavailable [phone] Jason Alvares MD Unavailable Jignesh Mathias MD Unavailable Ayad Lopez PhD LP Unavailable [phone] Gavi Nieto-C Unavailable [phone] Encounter Details Date Type Department Care Team (Late st Contact Info) Description 01/19/2021 [facility] Medical Advice [facility] [address] [address] Rio Jaquez MD [address] [place] [address] Social History Tobacco Use Types Packs/Day [...] Sex Assigned at Female 09/12/2020 12:05 PM CALCINER OPERATOR Legal Sex Female 3:26 AM CALCINER OPERATOR Gender Identity Female 09/12/2020 12:05 PM CALCINER OPERATOR Sexual Orientation Straight 12/19/2021 10 :44 [...] Description 03/26/2025 11:00 AM CDT Therapy Visit [address] [phone] Jason Alvares MD [address] [place] [address] 474265 Chaya Castillo, OTR [address] [id number] 03/29/2025 10:30 AM CDT Therapy Visit [facility] [address] [facility] [address] [place] [phone] [place] [address] [place], [place] [phone] 04/02/2025 11:00 AM CDT Therapy Visit [address] [phone] Jason Alvares MD [address] [place] [address] 739165 Chaya Castillo OTR [address] 895287 04/11/2025 12:30 PM CDT Office Visit [facility] [address] 4th [place] [phone] mOar Carmona MD [address] [place] [address] [id number] 04/12/2025 2:15 PM CDT Therapy Visit [address] [phone] Jason Alvares MD [address] [address] Chaya Castillo OTR FV [address] [address] 04/16/2025 11:00 AM CDT Therapy Visit [address] [phone] Jason Alvares MD [address] [place] [address] 41485 Chaya Castillo OTR FV [address] [address] 04/23/2025 11:00 AM CDT Therapy Visit [address] [phone] Jason Alvares MD [address] [place] [address] 336[address] Chaya Castillo OTR FV [address] [address] 04/30/2025 11:00 AM CDT Therapy Visit [address] [phone] Jason Alvares MD [address] [place] [address] 95065 Chaya Castillo WESR [address] [address] 05/15/2025 12:30 PM CDT Office Visit [address] [phone] Marquise Hanley MD [address] [place] [address] 756495 06/08/2025 9:15 AM CDT Office Visit [facility] [address] [phone] Jignesh Mathias MD [address] [place] [address] 304325 11/05/2025 1:45 PM CDT Office Visit [facility] Dermatology [address] 3rd [place] [address] Gavi Nieto PA-C Dermatology [address] [place] [address] [phone] documented as of this encounter Goals Goal [...] Depression Total Score: 12 021 9:43 AM CALCINER OPERATOR documented as of this encounter Care Teams Seat Cover Maker Relationship Specialty Start Date End Date Rio Jaquez MD [address] [place] [address] 943565 PCP - General Family Practice 12/02/10 07/13/24 Omar Carmona MD [address] [place] [address] 77880 PCP - General Family Medicine 07/14/24 Barry Kilpatrick MD [address] [place] [address] [id number] [place], [place] [phone] Neurology 07/19/14 Michelle Henderson I RN Nurse Coordinator Neurology 07/19/14 Rio Jaquez MD [address] [place] [address] 425025 Family Practice 10/15/14 Jemima Jaramillo MD presser hand 11/20/14 Kelley Chin, TANIA [address] 596885 Nurse Coordinator Cardiology 11/04/15 Sydnee Saleem MD [address] [place] [address] [facility] [address] [place], [place] [phone] Cardiology 11/04/15 Karlene Moya MD [address] [place] [address] 822885 Ophthalmology 06/24/17 Wilbert Quintero, OD [address] [place] [address] 227255 Optometry 06/24/17 Rod Gauthier DPM [address] [place] [address] 99348 Customer Sales Service Manager Primary Podiatric Medicine 06/21/18 Nallely Hogue, RN Registered Nurse 02/20/19 11/23/22 Larisa Vargas, TANIA Specialty Ship Unloader Cardiology 04/18/19 03/06/22 Francisco Lott MD [address] [place] [address]643 Assigned Rheumatology Provider 05/31/20 12/13/21 Greg Ortega MD [address] [place] [address] 85236 Assigned Surgical Provider 06/23/20 12/06/21 Jan Mahmood MD [address] [place] [address] 40489 Gastroenterology 11/05/20 Brandt Quintana MD [address] [place] [address] 67[address] Resident 11/05/20 Jan Mahmood MD [address] [place] [address] 25314 Assigned Gastroenterology Provider 12/01/20 Rio Jaquez MD [address] [place] [address] 04061 Assigned PCP 11/17/20 09/30/24 Dom Eason MD [address] [place] [address] 82836 Internal Medicine 12/02/20 Jayla Plaza, RN Specialty Ship Unloader Hepatology 01/09/21 02/13/24 Sydnee Saleem MD 6550 [facility] [address] [place], [place] [phone] Assigned Heart and Vascular Provider 02/02/21 07/24/22 Phan Coello MD Assigned Neuroscience Provider 02/21/21 11/22/21 Cristian Barragan MD 2945 [place] [address] Assigned Infectious Disease Provider 02/21/21 03/06/22 Dom Eason MD [address] [place] [address] 49155 Assigned Nephrology Provider 04/20/21 01/02/22 Jaimie Vernon, TANIA Specialty Ship Unloader Cardiology 10/28/21 Ruth Rdidle DPM, Podiatry/Foot and Ankle Surgery [address] [address] Assigned Musculoskeletal Provider 11/30/21 09/30/23 Luis Arrington MD 909 [place], [place] 957085 Assigned Neuroscience Provider 11/23/21 01/02/22 Jason Alvares MD 420 [facility] 295 [place], [place] 055585 Assigned Neuroscience Provider 01/03/22 05/15/22 Marquise Hanley MD [address] [place] [address] 97044 Endocrinology, Diabetes, and Metabolism 03/05/22 Vlad Ramey MD [address] [place] [address] 72163 Cardiovascular Disease 05/07/22 Joesph Crowe MD [address] [place] [address] 04345 Surgery 05/07/22 Luis Arrington MD [address] [place] [address] 87977 Assigned Neuroscience Provider 05/16/22 05/14/23 Michelle Padilla, TANIA Specialty Ship Unloader Cardiology 07/03/22 Vlad Ramey MD [address] [place] [address] 81922 Assigned Heart and Vascular Provider 07/25/22 05/28/23 Marquise Hanley MD [address] [place] [address] 25112 Assigned Endocrinology Provider 08/15/22 Dom Eason MD [address] [place] [address] 68154 Assigned Nephrology Provider 11/28/22 02/19/23 Wagner Oliver MD [address] [place] [address] Critical Care 12/15/22 Laura Epperson NP 717 [facility] 1932 [place] [address] Assigned Nephrology Provider 02/20/23 08/30/24 Thom Taveras MD [address] [place] [address] R105 [place] [address] Assigned Cancer Care Provider 02/06/23 08/20/23 Joesph Crowe MD [address] [place] [address] 62654 Surgery 03/17/23 Joesph Crowe MD [address] [place] [address] 32221 Assigned Surgical Provider 04/03/23 09/30/24 Adonay Haq MD [address] [place] [address] 99938 Internal Medicine 06/14/23OctoberDenilson MD [address] [facility] [address] [place] [address] Assigned Heart and Vascular Provider 05/29/23 11/28/24 Jason Alvares MD [address] [place] [address] 295 [place] [address] Assigned Neuroscience Provider 05/15/23 11/28/24 Ruth Riddle, DPVik, Podiatry/Foot and Ankle Surgery [address] [place] [address] Assigned Musculoskeletal Provider 10/22/23 Jignesh Mathias MD [address] [place] [address] 18989 Gastroenterology 09/25/24 Adonay Haq MD [address] [place] [address] 60637 Assigned PCP 10/01/24 12/28/24 Omar Carmona MD [address] [place] [address] 56750 Assigned PCP 12/29/24 Jason Alvares MD [address] [place] [address] 39894 Assigned Neuroscience Provider 12/29/24 Jignesh Mathias MD [address] [place] [address] 39899 Assigned Surgical Provider 12/29/24 Ayad Lopez, PhD LP [address] [place] [address] 551505 Assigned Behavioral Health Provider 02/28/25 Gavi Nieto PA-C [address] [place] [address]455 Physician Wireworker Dermatology 03/19/25 documented as of this encounter
--- OUTSIDE RECORDS SUMMARY | 2025-03-24 20:32 | XMS_ITS | Encounter Summary ---
Author Organization [facility] Address [address] [place] [address] 83832 Care Team Providers Care Office 365 Consultant Name Role Phone Rio Jaquez MD Primary Care Provider Barry Kilpatrick MD Unavailable Michelle Henderson RN Unavailable [phone] Rio Jaquez MD Unavailable [phone] Jemima Jaramillo MD Unavailable Unavai Kelley Bautista RN Unavailable [phone] Sydnee Saleem MD Unavailable [phone] Karlene Moya MD Unavailable [phone] Wilbert Quintero OD Unavailable [phone] Rod Gauthier DPM Unavailable [phone] Nallely Hogue RN Unavailable Unavailable Larisa Vargas RN Unavailable Unavailable Francisco Lott MD Unavailable [phone] Greg Ortega MD Unavailable [phone] Jan Mahmood MD Unavailable [phone] Brandt Quintana MD Unavailable [phone] Jan Mahmood MD Unavailable Rio Jaquez MD Unavailable Dom Eason MD Unavailable [phone] Jayla Plaza RN Unavailable Jayla Plaza RN Unavailable Sydnee Saleem MD Unavailable Phan Coello MD Unavailable Unavailable Cristian Barragan MD Unavailable Dom Eason MD Unavailable [phone] Jaimie Vernon RN Unavailable Unavailable Ruth Riddle DPM, Podiatry /Foot and Ankle Surgery Unavailable Luis Arrington MD Unavailable Jason Alvares MD Unavailable Marquise Hanley MD Unavailable Vlad Ramey MD Unavailable Joesph Crowe MD Unavailable Luis Arrington MD Unavailable Michelle Padilla RN Unavailable Unavaila ble Vlad Ramey MD Unavailable Marquise Hanley MD Unavailable Dom Eason MD Unavailable Wagner Oliver MD Unavailable [phone] Laura Epperson NP Unavailable [phone] Thom Taveras MD Unavailable Joesph Crowe MD Unavailable Joesph Crowe MD Unavailable Adonay Haq MD Unavailable [phone] OctoberDenilson MD Unavailable [phone] Jason Alvares MD Unavailable Ruth Riddle DPM, Podiatry /Foot and Ankle Surgery Unavailable Omar Carmona MD Primary Care Provider [phone] Jignesh Mathias MD Unavailable Adonay Haq MD Unavailable Omar Carmona MD Unavailable Jason Alvares MD Unavailable Jignesh Mathias MD Unavailable Ayad Lopez PhD LP Unavailable Gavi Nieto PA-C Unavailable Reason for Visit * Reason Onset Date Comments lab orders 12/26/2020 Encounter Details Date Type Department Care Team (Late st Contact Info) Description 12/26/2020 [facility] Medical Advice [facility] Primary [facility] Clinic [address] [phone] Rio Jaquez MD [address] [place] [address] lab orders Social History Tobacco Use Types Packs/Day Years [...] Assigned at Female 09/12/2020 12:05 PM 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 CLEANING Legal Sex Female 3:26 AM MANAGER CLEANING Gender Identity Female 09/12/2020 12:05 PM MANAGER CLEANING Sexual Orientation Straight 12/19/2021 10 :44 AM [...] CDT Therapy Visit [facility] [address] [place] [phone] Jason Alvares MD [address] [place] [address] 976005 Chaya Castillo OTR [address] 222077 03/29/2025 10:30 AM CDT Therapy Visit [facility] [address] [place] [phone] [place] [address] [place], [place] [phone] 04/02/2025 11:00 AM CDT Therapy Visit [facility] [address] [place] [phone] Jason Alvares MD [address] [place] [address] [phone] [facility] [address] [place] [address] 137777 04/11/2025 12:30 PM CDT Office Visit [facility] Primary [facility] [address] 4th [place] [phone] Omar Carmona MD [address] [place] [address] 04/12/2025 2:15 PM CDT Therapy Visit [facility] [address] [facility] [place] [phone] Jason Alvares MD [address] [place] [address] Chaya Castillo OTR [facility] 150 [place] [address] 04/16/2025 11:00 AM CDT Therapy Visit [facility] [address] [place] [phone] Jason Alvares MD [address] [place] [address] Chaya Castillo [facility]TR [facility] 150 [place] [address] 04/23/2025 11:00 AM CDT Therapy Visit [facility] [address] [facility] [place] [phone] Jason Alvares MD [address] [place] [address] Chaya Castillo OTR [facility] 150 [place] [address] 04/30/2025 11:00 AM CDT Therapy Visit [facility] [address] [place] [phone] Jason Alvares MD 420 [facility] 295 [place] [address] Chaya Castillo OTR [facility] 150 [place] [address] 05/15/2025 12:30 PM CDT Office Visit [address] [phone] Marquise Hanley MD [address] [place] [address] 06/08/2025 9:15 AM CDT Office Visit [facility] Hepatology [address] [phone] Jignesh Mathias MD [address] [place] [address] 524795 11/05/2025 1:45 PM CDT Office Visit [facility] Dermatology [address] 3rd [place] [address] Gavi Nieto PANavinC Dermatology [address] [place] [address] documented as of this encounter Goals Goal Patient Goal Type Associated Problems Recent Progress Patient-Stated? 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 10/23/2020 10/21/2020 Rule Out COVID-19 02/09/2024 02/09/2024 02/09/2024 1:52 AM CDT Assessment Noted Time PHQ-9 Depression Total Score: 12 021 9:43 AM MANAGER CLEANING documented as of this encounter Care Teams Office 365 Consultant Relationship Specialty Start Date End Date Roi Jaquez MD [address] [place] [address] 4 [place] [address] PCP - General Family Practice 12/02/10 07/13/24 Omar Carmona MD [address] [place] [address] 08405 PCP - General Family Medicine 07/14/24 Barry Kilpatrick MD [address] [place] [address] [id number] [place], [place] 180795 Neurology 07/19/14 Michelle Henderson RN Nurse Coordinator Neurology 07/19/14 Rio Jaquez MD [address] [place] [address] 33232 Family Practice 10/15/14 Jemima Jaramillo MD safety deposit supervisor 11/20/14 Kelley Chin, TANIA [address] 183315 Nurse Coordinator Cardiology 11/04/15 Sydnee Saleem MD [address] [place] [address] 508 [place], [place] [phone] Cardiology 11/04/15 Karlene Moya MD [address] [place] [address] 860165 Ophthalmology 06/24/17 Wilbert Quintero, OD [address] [place] [address] 489175 Optometry 06/24/17 Rod Gauthier DPM [address] [place] [address] 57832 Enterprise Analyst Primary Podiatric Medicine 06/21/18 Nallely Hogue, RN Registered Nurse 02/20/19 11/23/22 Larisa Vargas, TANIA Specialty Deliver Driver Cardiology 04/18/19 03/06/22 Francisco Lott MD [address] [place] [address] 12318 Assigned Rheumatology Provider 05/31/20 12/13/21 Greg Ortega MD [address] [place] [address] 68398 Assigned Surgical Provider 06/23/20 12/06/21 Jan Mahmood MD [address] [place] [address] 86541 Gastroenterology 11/05/20 Brandt Quintana MD [address] [place] [address] Resident 11/05/20 Jan Mahmood MD [address] [place] [address] 65117 Assigned Gastroenterology Provider 12/01/20 Rio Jaquez MD 909 [facility] 4 [place] [address] Assigned PCP 11/17/20 09/30/24 Dom Eason MD [address] [place] [address]49 Internal Medicine 12/02/20 Jayla Plaza, RN Specialty Deliver Driver Hepatology 01/09/21 02/13/24 Jayla Plaza, RN Specialty Deliver Driver Hepatology 01/10/21 01/10/21 Sydnee Saleem MD [address] [place] [address] [phone] Assigned Heart and Vascular Provider 02/02/21 07/24/22 Phan Coello MD Assigned Neuroscience Provider 02/21/21 11/22/21 Cristian Barragan MD [address] [place] [address] 95078 Assigned Infectious Disease Provider 02/21/21 03/06/22 Dom Eason MD [address] [place] [address] 90681 Assigned Nephrology Provider 04/20/21 01/02/22 Jaimie Vernon, TANIA Specialty Deliver Driver Cardiology 10/28/21 Ruth Riddle, DPM, Podiatry/Foot and Ankle Surgery [address] [address] Assigned Musculoskeletal Provider 11/30/21 09/30/23 Luis Arrington MD [address] [place] [address] 62133 Assigned Neuroscience Provider 11/23/21 01/02/22 Jason Alvares MD [address] [place] [address] 295 [place] [address] Assigned Neuroscience Provider 01/03/22 05/15/22 Marquise Hanley MD [address] [place] [address] 38587 Endocrinology, Diabetes, and Metabolism 03/05/22 Vlad Ramey MD [address] [place] [address] [phone] Cardiovascular Disease 05/07/22 Joesph Crowe MD [address] [place] [address] 09330 Surgery 05/07/22 Luis Arrington MD [address] [place] [address] 58510 Assigned Neuroscience Provider 05/16/22 05/14/23 Michelle Padilla RN Specialty Deliver Driver Cardiology 07/03/22 Vlad Ramey MD [address] [place] [address] 070465 Assigned Heart and Vascular Provider 07/25/22 05/28/23 Marquise Hanley MD [address] [place] [address] 24151 Assigned Endocrinology Provider 08/15/22 Dom Eason MD 717 [facility] 353 [place] [address] Assigned Nephrology Provider 11/28/22 02/19/23 Wagner Oliver MD [address] [place] 326095 Critical Care 12/15/22 Laura Epperson NP 717 [facility] [address] [place] [address] Assigned Nephrology Provider 02/20/23 08/30/24 Thom Taveras MD [facility] [address], [address] [place] [address] Assigned Cancer Care Provider 02/06/23 08/20/23 Joesph Crowe MD [address] [place] [address] 20881 Surgery 03/17/23 Joesph Crowe MD [address] [place] [address] 66355 Assigned Surgical Provider 04/03/23 09/30/24 Adonay Haq MD [address] [place] [address] 956445 Internal Medicine 06/14/23OctoberDenilson MD 6405 [facility] [address] [address] Assigned Heart and Vascular Provider 05/29/23 11/28/24 Jason Alvares MD 420 [facility] 295 [place], [place] 423235 Assigned Neuroscience Provider 05/15/23 11/28/24 Ruth Riddle DPM, Podiatry/Foot and Ankle Surgery [address] RODRIGUEZ [address] [place] [address] 75365 Assigned Musculoskeletal Provider 10/22/23 Jignesh Mathias MD [address] [place] [address] 673155 Gastroenterology 09/25/24 Adonay Haq MD [address] [place] [address] 868565 Assigned PCP 10/01/24 12/28/24 Omar Carmona MD [address] [place] [address] 063855 Assigned PCP 12/29/24 Jason Alvares MD 420 [facility] 295 [place], [place] 272845 Assigned Neuroscience Provider 12/29/24 Jignesh Mathias MD [address] [place] [address] 53365 Assigned Surgical Provider 12/29/24 Ayad Lopez, PhD LP [address] [place] [address] 26839 Assigned Behavioral Health Provider 02/28/25 Gavi Nieto PA-C [address] [place], [place] 819465 Physician Pension Fund Manager Dermatology 03/19/25 documented as of this encounter
--- OUTSIDE RECORDS SUMMARY | 2025-03-24 20:32 | XMS_ITS | Encounter Summary ---
Author Organization [place] Address [address] [place] [address] Care Team Providers Care Measuring Clerk Name Role Phone Rio Jaquez MD Primary Care Provider Barry Kilpatrick MD Unavailable Michelle Henderson RN Unavailable [phone] Rio Jaquez MD Unavailable +[phone] Jemima Jaramillo MD Unavailable Unavai Kelley Bautista RN Unavailable +[phone] Sydnee Saleem MD Unavailable +[phone] Karlene Moya MD Unavailable +[phone] Wilbert Quintero OD Unavailable +[phone] Rod Gauthier DPM Unavailable +[phone] Nallely Hogue RN Unavailable Unavailable Jan Mahmood MD Unavailable +[phone] Brandt Quintana MD Unavailable +[phone] Jan Mahmood MD Unavailable +[phone] Rio Jaquez MD Unavailable +[phone] Dom Eason MD Unavailable +[phone] Jayla Plaza RN Unavailable +[phone] Sydnee [...] Unavailable +[phone] Dom Eason MD Unavailable +[phone] Wagner Oliver MD Unavailable +[phone] ZeenatLaura rodriguez NP Unavailable +[phone] Thom Taveras MD Unavailable +[phone] Joesph Crowe MD Unavailable +[phone] Joesph Crowe MD Unavailable + [phone] Adonay Haq MD Unavailable +[phone] Denilson Srinivasan MD Unavailable + [phone] [facility] Unavailable Ruth Riddle DPM, Podiatry /Foot and Ankle Surgery Unavailable Omar Carmona MD Primary Care Provider [phone] Jignesh Mathias MD Unavailable Adonay Haq MD Unavailable +[phone] Omar Carmona MD Unavailable Jason Alvares MD Unavailable Jignesh Mathias MD Unavailable Ayad Lopez PhD LP Unavailable +[phone] Gavi Nieto PA-C Unavailable +[phone] Encounter Details Date Type Department Care Team (Late st Contact Info) Description 06/16/2022 MyC Medical Advice [facility] Hepatology Clinic [address] [address] Jan Mahmood MD [address] [place] [address] [address] [place] [address] Social History Tobacco Use Types [...] any clubs o r organizations such as sikh groups, unions, fraternal or athletic groups, or [...] Answer Date Recorded PHQ-2 Score 1 06/17/2022 [facility] - Occupational Stress Questionnaire Answer Date [...] Sex Assigned at Female 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 documented as of this encounter Plan of Treatment Upcoming Encounters Date Type Department Care Team (Late st Contact Info) Description 03/26/2025 11:00 AM CDT Therapy Visit [address] [phone] Jason Alvares MD 420 [facility] 295 [place], [place] 85[address] Chaya Castillo, OTR [address] [address] 03/29/2025 10:30 AM CDT Therapy Visit [facility] [address] [place] [phone] [place] [address] [address] [place], [place] [phone] 04/02/2025 11:00 AM CDT Therapy Visit [address] [phone] Jason Alvares MD [address] [place] [address] Chaya Castillo OTR [facility] [address] [place] [address] 04/11/2025 12:30 PM CDT Office Visit [facility] [address] 4th [place] [phone] Omar Carmona MD [address] [place] [address] 609825 04/12/2025 2:15 PM CDT Therapy Visit [facility] 150 [place] [phone] Jason Alvares MD [address] [place] [address] Chaya Castillo [facility]TR [facility] 150 [facility] [place] [address] 04/16/2025 11:00 AM CDT [facility] 150 [facility] [place] [address] Jason Alvares MD [address] [place] [address] Chaya Castillo OTR [facility] 150 [facility] [place] [address] 04/23/2025 11:00 AM CDT Therapy Visit [facility] 150 [facility] [place] [phone] Jason Alvares MD [address] [place] [address] Chaya Castillo OTR [address] [address] 04/30/2025 11:00 AM CDT Therapy Visit [facility] [address] [phone] Jason Alvares MD [address] [place] [address] Chaya Castillo OTR [address] [address] 05/15/2025 12:30 PM CDT Office Visit [address] [phone] Marquise Hanley MD [address] [place] [address] 06/08/2025 9:15 AM CDT Office Visit [facility] [address] [phone] Jignesh Mathias MD [address] [place] [address] 731965 11/05/2025 1:45 PM CDT Office Visit [facility] Dermatology Clinic [address] 3rd [place] [address] Gavi Nieto PA-C Dermatology [address] [place] [place] [address] documented as of this encounter Goals Goal [...] documented as of this encounter Care Teams Measuring Clerk Relationship Specialty Start Date End Date Rio Jaquez MD [address] [place] [address] [phone] PCP - General Family Practice 12/02/10 07/13/24 Omar Carmona MD [address] [place] [address] 912005 PCP - General Family Medicine 07/14/24 Barry Kilpatrick MD [address] [place] [address] [id number] [place], [place] 980135 Neurology 07/19/14 Michelle Henderson I, TANIA Nurse Coordinator Neurology 07/19/14 Rio Jaquez MD [address] [place] [address] 270635 Family Practice 10/15/14 Jemima Jaramillo MD wood carving lathe operator 11/20/14 Kelley Chin, TANIA [address] 289655 Nurse Coordinator Cardiology 11/04/15 Sydnee Saleem MD 420 [facility] 508 [place] [address] Cardiology 11/04/15 Karlene Moya MD 6 [place] [address] Ophthalmology 06/24/17 Wilbert Quintero, OD 9 [place] [address] Optometry 06/24/17 Rod Gauthier DPM 9 [place] [address] Print Color Operator Primary Podiatric Medicine 06/21/18 Nallely Hogue, TANIA Registered Nurse 02/20/19 11/23/22 Jan Mahmood MD [address] [place] [address] Gastroenterology 11/05/20 Brandt Quintana MD [address] [place] [address] Resident 11/05/20 Jan Mahmood MD [address] [place] [address] Assigned Gastroenterology Provider 12/01/20 Rio Jaquez MD 9 [facility] 4 [place] [address] Assigned PCP 11/17/20 09/30/24 Dom Eason MD [address] [place] [address] 353 [place] [address] Internal Medicine 12/02/20 Jayla Plaza, RN Specialty Electrical Unit Rebuilder Hepatology 01/09/21 02/13/24 Sydnee Saleem MD [address] [place] [address] [place] [address] Assigned Heart and Vascular Provider 02/02/21 07/24/22 Jaimie Vernon, TANIA Specialty Electrical Unit Rebuilder Cardiology 10/28/21 Ruth Riddle DPM, Podiatry/Foot and Ankle Surgery [address] [facility] 300 [place] [address] Assigned Musculoskeletal Provider 11/30/21 09/30/23 Marquise Hanley MD [address] [place] [address] Endocrinology, Diabetes, and Metabolism 03/05/22 Vlad Ramey MD [address] [place] [address] 28172 Cardiovascular Disease 05/07/22 Joesph Crowe MD [address] [place] [address] 93[address] Surgery 05/07/22 Luis Arrington MD [address] [place] [address] Assigned Neuroscience Provider 05/16/22 05/14/23 Padilla, Michelle M, RN Specialty Electrical Unit Rebuilder Cardiology 07/03/22 Vlad Ramey MD 909 [place] [address] Assigned Heart and Vascular Provider 07/25/22 05/28/23 Marquise Hanley MD [address] [place] [address] Assigned Endocrinology Provider 08/15/22 Dom Eason MD 717 [facility] MICHAEL 353 [place] [address] Assigned Nephrology Provider 11/28/22 02/19/23 Wagner Oliver MD [address] [place] [address] Critical Care 12/15/22 Laura Epperson NP [address] [place] [address] [facility] [address] [place] [address] Assigned Nephrology Provider 02/20/23 08/30/24 Thom Taveras MD [facility] [address] [place] [address] Assigned Cancer Care Provider 02/06/23 08/20/23 Joesph Crowe MD [address] [place] [address]13 Surgery 03/17/23 Joesph Crowe MD [address] [place] [address] 89461 Assigned Surgical Provider 04/03/23 09/30/24 Adonay Haq MD 9 [place] [address] Internal Medicine 06/14/23 Denilson Srinivasan MD [address] [place] [address] Assigned Heart and Vascular Provider 05/29/23 11/28/24 Jason Alvares MD [address] [phone] Assigned Neuroscience Provider 05/15/23 11/28/24 Ruth Riddle DPM, Podiatry/Foot and Ankle Surgery [address] [place] [address] Assigned Musculoskeletal Provider 10/22/23 Jignesh Mathias MD [address] [place] [address] 209385 Gastroenterology 09/25/24 Adonay Haq MD [address] [place] [address] Assigned PCP 10/01/24 12/28/24 Omar Carmona MD [address] [place] [address] 11900 Assigned PCP 12/29/24 Jason Alvares MD [address] [address] Assigned Neuroscience Provider 12/29/24 Jignesh Mathias MD [address] [place] [address] 104865 Assigned Surgical Provider 12/29/24 Ayad Lopez, PhD LP [address] [place] [address] 079495 Assigned Behavioral Health Provider 02/28/25 Gavi Nieto PANavinC [address] [place] [address] [phone] Physician Precinct Captain Dermatology 03/19/25 documented as of this encounter
--- OUTSIDE RECORDS SUMMARY | 2025-03-24 20:32 | XMS_ITS | Encounter Summary ---
Author Organization [place] Address [address] [place] [address] Care Team Providers Care Guest Relations Executive Name Role Phone Rio Jaquez MD Primary Care Provider Barry Kilpatrick MD Unavailable Michelle Henderson RN Unavailable [phone] Rio Jaquez MD Unavailable [phone] Jemima Jaramillo MD Unavailable Unavai Kelley Bautista RN Unavailable [phone] Sydnee Saleem MD Unavailable [phone] Karlene Moya MD Unavailable [phone] Wilbert Quintero OD Unavailable [phone] Rod Gauthier DPM Unavailable [phone] Nallely Hogue RN Unavailable Unavailable Larisa Vargas RN Unavailable Unavailable Francisco Lott MD Unavailable [phone] Greg Ortega MD Unavailable [phone] Jan Mahmood MD Unavailable [phone] Brandt Quintana MD Unavailable [phone] Jan Mahmood MD Unavailable Rio Jaquez MD Unavailable Dom Eason MD Unavailable [phone] Jayla Plaza RN Unavailable Jayla Plaza RN Unavailable Sydnee Saleem MD Unavailable Phan Coello MD Unavailable Unavailable Cristian Barragan MD Unavailable Dom Eason MD Unavailable [phone] Jaimie Vernon RN Unavailable Unavailable Ruth Riddle DPM, Podiatry /Foot and Ankle Surgery Unavailable Luis Arrington MD Unavailable Jason Alvares MD Unavailable Marquise Hanley MD Unavailable Vlad Ramey MD Unavailable Joesph Crowe MD Unavailable Luis Arrington MD Unavailable Michelle Padilla RN Unavailable Unavaila ble Vlad Ramey MD Unavailable Marquise Hanley MD Unavailable Dom Eason MD Unavailable Wagner Oliver MD Unavailable [phone] Laura Epperson NP Unavailable [phone] Thom Taveras MD Unavailable [phone] Joesph Crowe MD Unavailable [phone] Joesph Crowe MD Unavailable Adonay Haq MD Unavailable OctoberDenilson MD Unavailable [phone] Jason Alvares MD Unavailable Ruth Riddle DPM, Podiatry /Foot and Ankle Surgery Unavailable Omar Carmona MD Primary Care Provider Jignesh Mathias MD Unavailable Adonay Haq MD Unavailable [phone] Omar Carmona MD Unavailable Jason Alvares MD Unavailable Jignesh Mathias MD Unavailable Ayad Lopez PhD LP Unavailable Gavi Nieto PA-C Unavailable [phone] Encounter Details Date Type Department Care Team (Late st Contact Info) Description 01/09/2021 MyC Medical Advice [facility] Hepatology Clinic [address] [address] Jan Mahmood MD [address] [place] [address] Social History Tobacco Use Types Packs/Day [...] Sex Assigned at Female 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 Gender Identity Female 09/12/2020 12:05 PM 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 Sexual Orientation Straight 12/19/2021 10 :44 [...] Description 03/26/2025 11:00 AM CDT Therapy Visit [facility] 150 [place] [address] Jason Alvares MD [address] [place] [address] 207215 Chaya Castillo, OTR [address] [address] 03/29/2025 10:30 AM CDT Therapy Visit [facility] [address] [facility] [address] [place] [address] [place] [address] MIC[address]EL 300 [place], [place] 42047337 04/02/2025 11:00 AM CDT Therapy Visit [facility] 150 [place] [address] Jason Alvares MD [address] [place] [address] 920005 Chaya Castillo, OTR [address] 970067 04/11/2025 12:30 PM CDT Office Visit [facility] Primary Care Clinic [address] 4th [place] [phone] Omar Carmona MD [address] [place] [address] 04/12/2025 2:15 PM CDT Therapy Visit [facility] 150 [facility] [place] [address] Jason Alvares MD [address] [place] [address] Chaya Castillo, OTR [facility] 150 [place] [address] 04/16/2025 11:00 AM CDT Therapy [facility] 150 [place] [phone] Jason Alvares MD [address] [place] [address] Chaya Castillo OTR [facility] 150 [place] [address] 04/23/2025 11:00 AM CDT Therapy [facility] 150 [facility] [place] [phone] Jason Alvares MD [address] [place] [address] Chaya Castillo OTR [facility] 150 [place] [address] 04/30/2025 11:00 AM CDT Therapy [facility] 150 [facility] [place] [address] Jason Alvares MD [address] [place] [address] Chaya Castillo, OTR [address] [address] 05/15/2025 12:30 PM CDT Office Visit [address] [phone] Marquise Hanley MD [address] [place] [address] 06/08/2025 9:15 AM CDT Office Visit [facility] Hepatology [address] [phone] Jignesh Mathias MD [address] [place] [address] 493425 11/05/2025 1:45 PM CDT Office Visit [facility] Dermatology [address] 3rd [place] [address] Gavi Nieto PA-C Dermatology [address] [place] [address] documented as of this encounter Goals Goal [...] Total Score: 12 09/11/2 021 9:43 AM 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 documented as of this encounter Care Teams Guest Relations Executive Relationship Specialty Start Date End Date Rio Jaquez MD [address] [place] [address] 4 [place], [place] [phone] PCP - General Family Practice 12/02/10 07/13/24 Omar Carmona MD [address] [place] [address] 355555 PCP - General Family Medicine 07/14/24 Barry Kilpatrick MD [address] [place] [address] [id number] [place], [place] 815615 Neurology 07/19/14 Michelle Henderson I RN Nurse Coordinator Neurology 07/19/14 Rio Jaquez MD [address] [place] [address] 4 [place], [place] 397465 Family Practice 10/15/14 Jemima Jaramillo MD assistant producer 11/20/14 Kelley Chin, TANIA [address] 358205 Nurse Coordinator Cardiology 11/04/15 Sydnee Saleem MD [address] [place] [address] 508 [place], [place] 651265 Cardiology 11/04/15 Karlene Moya MD [address] [place] [address] Ophthalmology 06/24/17 Wilbert Quintero, OD [address] [place] [address] Optometry 06/24/17 Rod Gauthier DPM [address] [place] [address] 281975 Chief Dispatcher Service Primary Podiatric Medicine 06/21/18 Nallely Hogue, RN Registered Nurse 02/20/19 11/23/22 Larisa Vargas, TANIA Specialty Jail Manager Cardiology 04/18/19 03/06/22 Francisco Lott MD [address] [place] [address] Assigned Rheumatology Provider 05/31/20 12/13/21 Greg Ortega MD [address] [place] [address] Assigned Surgical Provider 06/23/20 12/06/21 Jan Mahmood MD [address] [place] [address] Gastroenterology 11/05/20 Brandt Quintana MD [address] [place] [address] 11068 Resident 11/05/20 Jan Mahmood MD [address] [place] [address] 15674 Assigned Gastroenterology Provider 12/01/20 Rio Jaquez MD [address] [address] Assigned PCP 11/17/20 09/30/24 Dom Eason MD [address] [place] [address]341 Internal Medicine 12/02/20 Jayla Plaza, RN Specialty Jail Manager Hepatology 01/09/21 02/13/24 Jayla Plaza, RN Specialty Jail Manager Hepatology 01/10/21 01/10/21 Sydnee Saleem MD 6550 [facility] [address] [place] [address] Assigned Heart and Vascular Provider 02/02/21 07/24/22 Phan Coello MD Assigned Neuroscience Provider 02/21/21 11/22/21 Cristian Barragan MD [address] [place] [address] Assigned Infectious Disease Provider 02/21/21 03/06/22 Dom Eason MD [address] [place] [address] Assigned Nephrology Provider 04/20/21 01/02/22 Jaimie Vernon, RN Specialty Jail Manager Cardiology 10/28/21 Ruth Riddle, DPM, Podiatry/Foot and Ankle Surgery [address] [place] [address] 506717 Assigned Musculoskeletal Provider 11/30/21 09/30/23 Luis Arrington MD [address] [place] [address] Assigned Neuroscience Provider 11/23/21 01/02/22 Jason Alvares MD [address] [place] [address] Assigned Neuroscience Provider 01/03/22 05/15/22 Marquise Hanley MD [address] [place] [address] 26274 Endocrinology, Diabetes, and Metabolism 03/05/22 Vlad Ramey MD [address] [place] [address] 148265 Cardiovascular Disease 05/07/22 Joesph Crowe MD [address] [place] [address] 150435 Surgery 05/07/22 Luis Arrington MD [address] [place] [address] 738905 Assigned Neuroscience Provider 05/16/22 05/14/23 Michelle Padilla RN Specialty Jail Manager Cardiology 07/03/22 Vlad Ramey MD [address] [place] [address] 496425 Assigned Heart and Vascular Provider 07/25/22 05/28/23 Marquise Hanley MD [address] [place] [address] 634825 Assigned Endocrinology Provider 08/15/22 Dom Eason MD [address] [place] [address] Assigned Nephrology Provider 11/28/22 02/19/23 Wagner Oliver MD [address] [place] [address] Critical Care 12/15/22 Laura Epperson NP 717 [facility] 1932 [place] [address] Assigned Nephrology Provider 02/20/23 08/30/24 Thom Taveras MD [facility] [address] [place] [address] Assigned Cancer Care Provider 02/06/23 08/20/23 Joesph Crowe MD [address] [place] [address] 88845 Surgery 03/17/23 Joesph Crowe MD [address] [place] [address] 04943 Assigned Surgical Provider 04/03/23 09/30/24 Adonay Haq MD [address] [place] [address]32 Internal Medicine 06/14/23OctoberDenilson MD [address] [facility] [address] [place] [address] Assigned Heart and Vascular Provider 05/29/23 11/28/24 Jason Alvares MD 420 [facility] 295 [place] [address] Assigned Neuroscience Provider 05/15/23 11/28/24 Ruth Riddle, DPM, Podiatry/Foot and Ankle Surgery [address] [place] [address] Assigned Musculoskeletal Provider 10/22/23 Jignesh Mathias MD [address] [place] [address] 66086 Gastroenterology 09/25/24 Adonay Haq MD [address] [place] [address] 402815 Assigned PCP 10/01/24 12/28/24 Omar Carmona MD [address] [place] [address] 080275 Assigned PCP 12/29/24 Jason Alvares MD [address] [place] [address] [phone] Assigned Neuroscience Provider 12/29/24 Jignesh Mathias MD [address] [place] [address] 896745 Assigned Surgical Provider 12/29/24 Ayad Lopez, PhD LP [address] [place] [address] 195175 Assigned Behavioral Health Provider 02/28/25 Gavi Nieto, PANavinC [address] [place] [address] 508185 Physician Professor Of Food Biochemistry Dermatology 03/19/25 documented as of this encounter
--- OUTSIDE RECORDS SUMMARY | 2025-03-24 20:32 | XMS_ITS | Encounter Summary ---
Author Organization [place] Address [address] [place] [address] Care Team Providers Care Locker Room Attendant Name Role Phone Rio Jaquez MD Primary Care Provider Barry Kilpatrick MD Unavailable Michelle Henderson RN Unavailable [phone] Rio Jaquez MD Unavailable +[phone] Jemima Jaramillo MD Unavailable Unavai Kelley Bautista RN Unavailable +[phone] Sydnee Saleem MD Unavailable +[phone] Karlene Moya MD Unavailable +[phone] Wilbert Quintero OD Unavailable +[phone] Rod Gauthier DPM Unavailable +[phone] Nallely Hogue RN Unavailable Unavailable Jan Mahmood MD Unavailable +[phone] Brandt Quintana MD Unavailable +[phone] Jan Mahmood MD Unavailable +[phone] Rio Jaquez MD Unavailable +[phone] Dom Eason MD Unavailable +[phone] Jayla Plaza RN Unavailable +[phone] Sydnee [...] Unavailable +[phone] Dom Eason MD Unavailable +[phone] Wagner Oliver MD Unavailable +[phone] Laura Epperson NP Unavailable +[phone] Thom Taveras MD Unavailable +[phone] Joesph Crowe MD Unavailable + [phone] Joesph Crowe MD Unavailable + [phone] Adonay Haq MD Unavailable +[phone] Denilson Srinivasan MD Unavailable + [phone] Jason Alvares MD Unavailable Ruth Riddle DPM, Podiatry /Foot and Ankle Surgery Unavailable Omar Carmona MD Primary Care Provider +[phone]- Jignesh Mathias MD Unavailable Adonay Haq MD Unavailable +1- Omar Carmona MD Unavailable +[phone] Jason Alvares MD Unavailable Jignesh Mathias MD Unavailable Ayad Lopez PhD LP Unavailable +[phone] Gavi Nieto-C Unavailable +[phone] Encounter Details Date Type Department Care Team (Late st Contact Info) Description 05/12/2022 MyC Medical Advice [facility] [address] [address] Jan Mahmood MD [address] [place] [address] [address] [place] [address] Social History Tobacco Use Types [...] any clubs o r organizations such as gnosticist groups, unions, fraternal or athletic groups, or [...] Answer Date Recorded PHQ-2 Score 1 05/07/2022 [facility] [...] place to sleep or slept in a group home (including now)? No 08/27/2021 Comments No Sex and Gender Information Value Date Recorded Sex Assigned at Female 09/12/2020 12:05 PM CLINICAL TEAM MANAGER Legal Sex Female 3:26 AM CLINICAL TEAM MANAGER Gender Identity Female 09/12/2020 12:05 PM CLINICAL TEAM MANAGER Sexual Orientation Straight 12/19/2021 10 :44 [...] 03/26/2025 11:00 AM CDT Therapy Visit [address] [phone] Jason Alvares MD 420 [facility] 295 [place], [place] [address] Chaya Castillo OTR [address] [address] 03/29/2025 10:30 AM CDT Therapy Visit [facility] [address] [place] [address] [place] [address] [place], [place] [phone] 04/02/2025 11:00 AM CDT [facility] [address] [place] [address] Jason Alvares MD [address] [place] [address] 643155 Chaya Castillo, OTR [facility] 150 [place] [address] 04/11/2025 12:30 PM CDT Office Visit [facility] [address] 4th [place] [phone] Omar Carmona MD [address] [place] [address] 04/12/2025 2:15 PM CDT Therapy Visit [facility] 150 [place] [address] Jason Alvares MD [address] [place] [address] 146145 Chaya Castillo, OTR [facility] 150 [facility] [place] [address] 04/16/2025 11:00 AM CDT Therapy Visit [facility] [address] [place] [address] Jason Alvares MD [address] [place] [address] [phone] Chaya Castillo, OTR [facility] 150 [facility] [place] [place] [address] 04/23/2025 11:00 AM CDT Therapy Visit [facility] 150 [place] [address] Jason Alvares MD [address] [place] [address] [phone] Chaya Castillo, OTR [facility] 150 [place] [address] 04/30/2025 11:00 AM CDT Therapy Visit [facility] 150 [place] [address] Jason Alvares MD [address] [place] [address] Chaya Castillo, OTR [address] [address] 05/15/2025 12:30 PM CDT Office Visit [address] [phone] Marquise Hanley MD [address] [place] [address] 910005 06/08/2025 9:15 AM CDT Office Visit [facility] [address] [phone] Jignesh Mathias MD [address] [place] [address] 11/05/2025 1:45 PM CDT Office Visit [facility] [address] 3rd [place] [address] Gavi Nieto PA-C Dermatology [address] [place] [address] documented as of this encounter Goals Goal [...] documented as of this encounter Care Teams Locker Room Attendant Relationship Specialty Start Date End Date Rio Jaquez MD [address] [place] [address] PCP - General Family Practice 12/02/10 07/13/24 Omar Carmona MD [address] [place] [address]07 PCP - General Family Medicine 07/14/24 Barry Kilpatrick MD [address] [place] [address] [id number] [place] [address] Neurology 07/19/14 Michelle Henderson I, RN Nurse Coordinator Neurology 07/19/14 Rio Jaquez MD [address] [place] [address] Family Practice 10/15/14 Jemima Jaramillo MD lunch cook 11/20/14 Kelley Chin, TANIA [address] [address] Nurse Coordinator Cardiology 11/04/15 Sydnee Saleem MD 420 [facility] 508 [place], [place] 128415 Cardiology 11/04/15 Karlene Moya MD [address] [place] [address] 115775 Ophthalmology 06/24/17 Wilbert Quintero, OD 909 [place], [place] 475835 Optometry 06/24/17 Rod Gauthier DPM 9 [place], [place] [phone] [employer] Primary Podiatric Medicine 06/21/18 Nallely Hogue, RN Registered Nurse 02/20/19 11/23/22 Jan Mahmood MD [address] [place] [address] 2[address] [place] [address] Gastroenterology 11/05/20 Brandt Quintana MD [address] [place] [address] Resident 11/05/20 Jan Mahmood MD [address] [place] [address] 135335 Assigned Gastroenterology Provider 12/01/20 Rio Jaquez MD 9 [facility] 4 [place], [place] 837355 Assigned PCP 11/17/20 09/30/24 Dom Eason MD [address] [place] [address] 353 [place] [address] Internal Medicine 12/02/20 Jayla Plaza, RN Specialty Contact Center Analyst Hepatology 01/09/21 02/13/24 Sydnee Saleem MD 6595 [facility] [address] [place] [address] [phone] Assigned Heart and Vascular Provider 02/02/21 07/24/22 Jaimie Vernon, TANIA Specialty Contact Center Analyst Cardiology 10/28/21 Ruth Riddle DPM, Podiatry/Foot and Ankle Surgery 19476 [facility] 300 [place] [address] Assigned Musculoskeletal Provider 11/30/21 09/30/23 Jason Alvares MD [address] [place] [address] 295 [place] [address] Assigned Neuroscience Provider 01/03/22 05/15/22 Marquise Hanley MD [address] [place] [address] Endocrinology, Diabetes, and Metabolism 03/05/22 Vlad Ramey MD [address] [place] [address] [phone] Cardiovascular Disease 05/07/22 Joesph Crowe MD [address] [place] [address] 31784 Surgery 05/07/22 Luis Arrington MD [address] [place] [address] Assigned Neuroscience Provider 05/16/22 05/14/23 Michelle Padilla, RN Specialty Contact Center Analyst Cardiology 07/03/22 Vlad Ramey MD [address] [place] [address] Assigned Heart and Vascular Provider 07/25/22 05/28/23 Marquise Hanley MD [address] [place] [address] Assigned Endocrinology Provider 08/15/22 Dom Eason MD [address] [place] [address] Assigned Nephrology Provider 11/28/22 02/19/23 Wagner Oliver MD 6401 [place] [address] Critical Care 12/15/22 Laura Epperson NP [address] [place] [address] 1932 [place] [address] Assigned Nephrology Provider 02/20/23 08/30/24 Thom Taveras MD [facility] [address] [address] Assigned Cancer Care Provider 02/06/23 08/20/23 Joesph Crowe MD [address] [place] [address] Surgery 03/17/23 Joesph Crowe MD [address] [place] [address] Assigned Surgical Provider 04/03/23 09/30/24 Adonay Haq MD [address] [place] [address] Internal Medicine 06/14/23October, Denilson Jackosn MD [address] [facility] [address] [place] [address] Assigned Heart and Vascular Provider 05/29/23 11/28/24 Jason Alvares MD [address] [place] [address] Assigned Neuroscience Provider 05/15/23 11/28/24 Ruth Riddle DPM, Podiatry/Foot and Ankle Surgery [address] [place] [address] Assigned Musculoskeletal Provider 10/22/23 Jignesh Mathias MD [address] [place] [address] Gastroenterology 09/25/24 Adonay Haq MD [address] [place] [address]671 Assigned PCP 10/01/24 12/28/24 Omar Carmona MD [address] [place] [address] [phone] Assigned PCP 12/29/24 Jason Alvares MD [address] [place] [address] 295 [place], [place] 220615 Assigned Neuroscience Provider 12/29/24 Jignesh Mathias MD [address] [place] [address] Assigned Surgical Provider 12/29/24 Ayad Lopez, PhD LP [address] [place] [address] Assigned Behavioral Health Provider 02/28/25 Gavi Nieto PANavinC [address] [place] [address] [phone] Physician Dope Mixer Dermatology 03/19/25 documented as of this encounter
--- OUTSIDE RECORDS SUMMARY | 2025-03-24 20:33 | XMS_ITS | Encounter Summary ---
Author Organization [place] Address [address] [place] [address] Care Team Providers Care Licensed Mortgage Loan Officer Name Role Phone Rio Jaquez MD Primary Care Provider Barry Kilpatrick MD Unavailable Michelle Henderson I RN Unavailable [phone] Rio Jaquez MD Unavailable +[phone] Jemima Jaramillo MD Unavailable Unavai Kelley Bautista RN Unavailable [phone] Sydnee Saleem MD Unavailable +[phone] Karlene Moya MD Unavailable +[phone] Wilbert Quintero OD Unavailable +[phone] Rod Gauthier DPM Unavailable +[phone] Jan Mahmood MD Unavailable +[phone] Brandt Quintana MD Unavailable +[phone] Jan Mahmood MD Unavailable +[phone] Rio Jaquez MD Unavailable +[phone] Dom Eason MD Unavailable + [phone] Spalding, Jaimie RN Unavailable Unavailable Marquise Hnaley MD Unavailable +[phone] Vlad Ramey MD Unavailable +[phone] Joesph Crowe MD Unavailable + [phone] Michelle Padilla RN Unavailable Unavaila ble Marquise Hanley MD Unavailable +[phone] Wagner Oliver MD Unavailable +[phone] Laura Epperson NP Unavailable +[phone] Joesph Crowe MD Unavailable +[phone] Joesph Crowe MD Unavailable + [phone] Adonay Haq MD Unavailable +[phone] Denilson Srinivasan MD Unavailable + [phone] Jason Alvares MD Unavailable Ruth Riddle DPM, Podiatry /Foot and Ankle Surgery Unavailable Omar Carmona MD Primary Care Provider [phone] Jignesh Mathias MD Unavailable Adonay Haq MD Unavailable [phone] Omar Carmona MD Unavailable +[phone] Jason Alvares MD Unavailable Jignesh Mathias MD Unavailable Ayad Lopez PhD LP Unavailable +[phone] Gavi Nieto PA-C Unavailable [phone] Encounter Details Date Type Department Care Team (Late st Contact Info) Description 03/19/2024 [facility] [address] [address] Jan Mahmood MD [address] [place] [address] Social History Tobacco Use Types Packs/Day Years [...] Answer Date Recorded PHQ-2 Score 2 02/28/2024 [facility] - Occupational Stress Questionnaire Answer [...] Sex Assigned at Female 09/12/2020 12:05 PM DISPATCHER CHIEF COAL SLURRY Legal Sex Female 3:26 AM DISPATCHER CHIEF COAL SLURRY Gender Identity Female 09/12/2020 12:05 PM DISPATCHER CHIEF COAL SLURRY Sexual Orientation Straight 12/19/2021 10 :44 AM [...] 03/26/2025 11:00 AM CDT Therapy Visit [address] [address] Jason Alvares MD [address] [place] [address] Chaya Castillo OTR [facility] 150 [place] [address] 03/29/2025 10:30 AM CDT Therapy Visit [facility] [address] [place] [phone] [place] [address] MICHA[address] 300 [place], [place] 041157 04/02/2025 11:00 AM CDT [facility] [address] [place] [phone] Jason Alvares MD [address] [place] [address] [phone] Chaya Castillo [facility] 150 [place] [address] 04/11/2025 12:30 PM CDT Office Visit [facility] [address] 4th [place] [phone] Omar Carmona MD [address] [place] [address] [phone] 04/12/2025 2:15 PM CDT Therapy [facility] 150 [place] [phone] Jason Alvares MD [address] [place] [address] Chaya Castillo [facility]TR [facility] 150 [place] [address] 04/16/2025 11:00 AM CDT Therapy [facility] [address] [place] [address] Jason Alvares MD [address] [address] Chaya Castillo OTR [facility] 150 [place] [address] 04/23/2025 11:00 AM CDT Therapy Visit [facility] 150 [place] [address] Jason Alvares MD [address] [place] [address] Chaya Castillo OTR [facility] 150 [place] [address] 04/30/2025 11:00 AM CDT Therapy Visit [address] [address] Jason Alvares MD [address] [place] [address] Chaya Castillo OTR [facility] 150 [place] [address] 05/15/2025 12:30 PM CDT Office Visit [address] [phone] Marquise Hanley MD [address] [place] [address] 06/08/2025 9:15 AM CDT Office Visit [facility] [address] [phone] Jignesh Mathias MD [address] [place] [address] 11/05/2025 1:45 PM CDT Office Visit [facility] [address] 3rd [place] [address] Gavi Nieto PA-C Dermatology [address] [place] [address] [phone] documented as of this encounter Goals Goal [...] documented as of this encounter Care Teams Licensed Mortgage Loan Officer Relationship Specialty Start Date End Date Rio Jaquez MD [address] [place] [address] [address] 4 [place] [address] PCP - General Family Practice 12/02/10 07/13/24 Omar Carmona MD [address] [place] [address] PCP - General Family Medicine 07/14/24 Barry Kilpatrick MD [address] [place] [address] [id number] [place] [address] Neurology 07/19/14 Michelle Henderson I, RN Nurse Coordinator Neurology 07/19/14 Rio Jaquez MD [address] [place] [address] 4 [place], [place] 797635 Family Practice 10/15/14 Jemima Jaramillo MD piano regulator inspector 11/20/14 Kelley Chin, TANIA [address] 699755 Nurse Coordinator Cardiology 11/04/15 Sydnee Saleem MD [address] [place] [address] 508 [place], [place] 147135 Cardiology 11/04/15 Karlene Moya MD [address] [place] [address] [phone] Ophthalmology 06/24/17 Wilbert Quintero, OD [address] [place] [address] [phone] Optometry 06/24/17 Rod Gauthier DPM [address] [place] [address] [phone] Pharmaceutical Officer Primary Podiatric Medicine 06/21/18 Jan Mahmood MD [address] [place] [address] 2A [place], [place] [phone] Gastroenterology 11/05/20 Brandt Quintana MD [address] [place] [address] Resident 11/05/20 Jan Mahmood MD 516 [facility] 2A [place] [address] Assigned Gastroenterology Provider 12/01/20 Rio Jaquez MD [address] [place] [address] Assigned PCP 11/17/20 09/30/24 Dom Eason MD 7 [facility] 353 [place] [address] Internal Medicine 12/02/20 Jaimie Vernon, TANIA Specialty Density Control Puncher Cardiology 10/28/21 Marquise Hanley MD [address] [place] [address] Endocrinology, Diabetes, and Metabolism 03/05/22 Vlad Ramey MD [address] [place] [address] Cardiovascular Disease 05/07/22 Joesph Crowe MD [address] [place] [address] Surgery 05/07/22 Michelle Padilla, RN Specialty Density Control Puncher Cardiology 07/03/22 Marquise Hanley MD [address] [place] [address] Assigned Endocrinology Provider 08/15/22 Wagner Oliver MD [address] [place] [address] Critical Care 12/15/22 Laura Epperson NP 717 [facility] 1932 [place] [address] Assigned Nephrology Provider 02/20/23 08/30/24 Joesph Crowe MD [address] [place] [address] Surgery 03/17/23 Joesph Crowe MD [address] [place] [address] Assigned Surgical Provider 04/03/23 09/30/24 Adonay Haq MD 909 [place], [place] 239855 Internal Medicine 06/14/23OctoberDenilson MD [address] Black [facility] [address] [place] [address] Assigned Heart and Vascular Provider 05/29/23 11/28/24 Jason Alvares MD 420 [facility] 295 [place] [address] Assigned Neuroscience Provider 05/15/23 11/28/24 Ruth Riddle DPM, Podiatry/Foot and Ankle Surgery [address] [place] [address] Assigned Musculoskeletal Provider 10/22/23 Jignesh Mathias MD [address] [place] [address] Gastroenterology 09/25/24 Adonay Haq MD [address] [place] [address] [phone] Assigned PCP 10/01/24 12/28/24 Omar Carmona MD [address] [place] [address] 505885 Assigned PCP 12/29/24 Jason Alvares MD [address] [place] [address] [phone] Assigned Neuroscience Provider 12/29/24 Jignesh Mathias MD [address] [place] [address]285 Assigned Surgical Provider 12/29/24 Ayad Lopez, PhD LP [address] [place] [address] 601205 Assigned Behavioral Health Provider 02/28/25 Gavi Nieto PANavinC [address] [place] [address] [phone] Physician Foreign Languages Professor Dermatology 03/19/25 documented as of this encounter
--- OUTSIDE RECORDS SUMMARY | 2025-03-24 20:33 | XMS_ITS | Encounter Summary ---
Author Organization [facility] Address [address] [place] [address] Care Team Providers Care Test Fixture Assembler Name Role Phone Rio Jaquez MD Primary Care Provider Barry Kilpatrick MD Unavailable Michelle Henderson I RN Unavailable [phone] Rio Jaquez MD Unavailable +[phone] Jemima Jaramillo MD Unavailable Unavai Kelley Bautista RN Unavailable +[phone] Sydnee Saleem MD Unavailable +[phone] Karlene Moya MD Unavailable Wilbert Quintero OD Unavailable +[phone] Rod Gauthier DPM Unavailable Jan Mahmood MD Unavailable +[phone] Brandt Quintana MD Unavailable +[phone] Jan Mahmood MD Unavailable +[phone] Rio Jaquez MD Unavailable +[phone] Dom Eason MD Unavailable Jayla Plaza RN Unavailable +[phone] Jaimie Vernon RN Unavailable Unavailable Marquise Hanley MD Unavailable +[phone] Vlad Ramey MD Unavailable +[phone] Joesph Crowe MD Unavailable + [phone] Michelle Padilla RN Unavailable Unavaila ble Marquise Hanley MD Unavailable +-[phone] Wagner Oliver MD Unavailable +[phone] Laura Epperson NP Unavailable + [phone] Joesph Crowe MD Unavailable + [phone] Joesph Crowe MD Unavailable + [phone] Adonay Haq MD Unavailable [phone] Denilson Srinivasan MD Unavailable + [phone] Jason Alvares MD Unavailable Ruth Riddle DPM, Podiatry /Foot and Ankle Surgery Unavailable Omar Carmona MD Primary Care Provider [phone] Jignesh Mathias MD Unavailable Adonay Haq MD Unavailable [phone] Omar Carmona MD Unavailable +[phone] Jason Alvares MD Unavailable Jignesh Mathias MD Unavailable Ayad Lopez PhD LP Unavailable +[phone] Gavi Nieto PA-C Unavailable [phone] Encounter Details Date Type Department Care Team (Late st Contact Info) Description 02/04/2024 [facility] Hepatology [address] [address] Jan Mahmood MD 6 [facility] 2A [place] [address] Social History Tobacco Use Types Packs/Day Years [...] Answer Date Recorded PHQ-2 Score 2 08/26/2023 [facility] - [...] Sex Assigned at Female 09/12/2020 12:05 PM HAND BOX FOLDER Legal Sex Female 3:26 AM HAND BOX FOLDER Gender Identity Female 09/12/2020 12:05 PM HAND BOX FOLDER Sexual Orientation Straight 12/19/2021 10 :44 AM [...] Description 03/26/2025 11:00 AM CDT Therapy Visit [address] [phone] Jason Alvares MD [address] [place] [address] 218425 [facility] [address] [place] [address] 03/29/2025 10:30 AM CDT Therapy Visit [facility] [address] [place] [phone] [place] [address] MICHAEL 300 [place], [place] [phone] 04/02/2025 11:00 AM CDT Therapy Visit [address] [phone] Jason Alvares MD [address] [place] [address] Chaya Castillo, OTR [address] [address] 04/11/2025 12:30 PM CDT Office Visit [facility] [address] 4th [place] [address] Omar Carmona MD [address] [place] [address] 143185 04/12/2025 2:15 PM CDT Therapy Visit [address] [phone] Jason Alvares MD [address] [place] [address] [phone] Chaya Castillo, OTR [facility] 150 [place] [address] 04/16/2025 11:00 AM CDT Therapy Visit [facility] [place] [address] [place] [phone] Jason Alvares MD [address] [place] [address] Chaya Castillo OTR [facility] 150 [facility] [place] [address] 04/23/2025 11:00 AM CDT Therapy Visit [facility] [address] [facility] [place] [phone] Jason Alvares MD [address] [place] [address] Chaya Castillo OTR [facility] 150 [facility] [place] [address] 04/30/2025 11:00 AM CDT Therapy Visit [facility] 150 [facility] [place] [phone] Jason Alvares MD [address] [place] [address] Chaya Castillo OTR [facility] 150 [facility] [place] [address] 05/15/2025 12:30 PM CDT Office Visit [address] [phone] Marquise Hanley MD [address] [place] [address] 06/08/2025 9:15 AM CDT Office Visit [facility] Hepatology Clinic [address] [address] Jignesh Mathias MD [address] [place] [address] 11/05/2025 1:45 PM CDT Office Visit [facility] Dermatology Clinic [address] 3rd [place] [address] Gavi Nieto PA-C Dermatology [address] [place] [address] documented as of this encounter Goals [...] Total Score: 9 06/14/20 23 7:18 AM HAND BOX FOLDER documented as of this encounter Care Teams Test Fixture Assembler Relationship Specialty Start Date End Date Rio Jaquez MD [address] [place] [address] 4 [place] [address] PCP - General Family Practice 12/02/10 07/13/24 Omar Carmona MD [address] [place] [address] 10199 PCP - General Family Medicine 07/14/24 Barry Kilpatrick MD [address] [place] [address] [id number] [place], [place] 020195 Neurology 07/19/14 Michelle Henderson I, RN Nurse Coordinator Neurology 07/19/14 Rio Jaquez MD [address] [place] [address] [address] 4 [place], [place] 695445 Family Practice 10/15/14 Jemima Jaramillo MD plumber cub 11/20/14 Kelley Chin, TANIA [address] 481705 Nurse Coordinator Cardiology 11/04/15 Sydnee Saleem MD [address] [place] [address] [facility] [address] [place], [place] 213545 Cardiology 11/04/15 Karlene Moya MD [address] [place] [address] 900835 Ophthalmology 06/24/17 Wilbert Quintero, OD [address] [place] [address] 846115 Optometry 06/24/17 Rod Gauthier DPM [address] [place] [address] 029445 Supervisor Roller Printing Primary Podiatric Medicine 06/21/18 Jan Mahmood MD [address] [place] [address] [address] [place], [place] 655725 Gastroenterology 11/05/20 Brandt Quintana MD 1414 [place] [address] Resident 11/05/20 Jan Mahmood MD [facility] [place] [address] Assigned Gastroenterology Provider 12/01/20 Rio Jaquez MD [address] [place] [address] [address] 4 [place], [place] 772145 Assigned PCP 11/17/20 09/30/24 Dom Eason MD 717 [facility] MICHAEL 353 [place] [address] Internal Medicine 12/02/20 Jayla Plaza, RN Specialty Weaver Dobby Loom Hepatology 01/09/21 02/13/24 Jaimie Vernon, RN Specialty Weaver [employer]obby Loom Cardiology 10/28/21 Marquise Hanley MD [address] [place] [address] Endocrinology, Diabetes, and Metabolism 03/05/22 Vlad Ramey MD [address] [place] [address] 6[address]30 Cardiovascular Disease 05/07/22 Joesph Croew MD [address] [place] [address] 52867 Surgery 05/07/22 Michelle Padilla, RN Specialty Weaver Dobby Loom Cardiology 07/03/22 Marquise Hanley MD [address] [place] [address] 16501 Assigned Endocrinology Provider 08/15/22 Wagner Oliver MD [address] [place] [address] Critical Care 12/15/22 Laura Epperson NP 717 [facility] 1932 [place] [address] Assigned Nephrology Provider 02/20/23 08/30/24 Joesph Crowe MD [address] [place] [address] 584195 Surgery 03/17/23 Joesph Crowe MD [address] [place] [address] 608595 Assigned Surgical Provider 04/03/23 09/30/24 Adonay Haq MD [address] [place] [address] 676795 Internal Medicine 06/14/23OctoberDenilson MD [address] [place] [address] Assigned Heart and Vascular Provider 05/29/23 11/28/24 Jason Alvares MD [address] [place] [address] 295 [place], [place] 127745 Assigned Neuroscience Provider 05/15/23 11/28/24 Ruth Riddle DPM, Podiatry/Foot and Ankle Surgery [address] [place] [address] Assigned Musculoskeletal Provider 10/22/23 Jignesh Mathias MD [address] [place] [address] 490285 Gastroenterology 09/25/24 Adonay Haq MD [address] [place] [address] Assigned PCP 10/01/24 12/28/24 Omar Carmona MD [address] [place] [address] 741375 Assigned PCP 12/29/24 Jason Alvares MD [address] [place] [address] 025015 Assigned Neuroscience Provider 12/29/24 Jignesh Mathias MD [address] [place] [address] 65[address] Assigned Surgical Provider 12/29/24 Ayad Lopez, PhD LP [address] [place] [address] 251165 Assigned Behavioral Health Provider 02/28/25 Gavi Nieto PANavinC [address] [place] [address] 20730 Physician Supervising Nurse Dermatology 03/19/25 documented as of this encounter
--- OUTSIDE RECORDS SUMMARY | 2025-03-24 20:33 | XMS_ITS | Encounter Summary ---
Author Organization [facility] Address [address] [place] [address] 88789 Care Team Providers Care Bridge Painter Name Role Phone Rio Jaquez MD Primary Care Provider Barry Kilpatrick MD Unavailable Michelle Henderson RN Unavailable [phone] Rio Jaquez MD Unavailable +[phone] Jemima Jaramillo MD Unavailable Unavai Kelley Bautista RN Unavailable +[phone] Sydnee Saleem MD Unavailable +[phone] Karlene Moya MD Unavailable +[phone] Wilbert Quintero OD Unavailable +[phone] Rod Gauthier DPM Unavailable +[phone] Nallely Hogue RN Unavailable Unavailable Jan Mahmood MD Unavailable +[phone] Brantd Quintana MD Unavailable Jan Mahmood MD Unavailable +[phone] Rio Jaquez MD Unavailable +[phone] Dom Eason MD Unavailable +[phone] Jayla Plaza RN Unavailable +[phone] Sydnee [...] Unavailable +[phone] Dom Eason MD Unavailable +[phone] Wagner Oliver MD Unavailable +[phone] Laura Epperson NP Unavailable +[phone] Thom Taveras MD Unavailable +[phone] Joesph Crowe MD Unavailable + [phone] Joesph Crowe MD Unavailable + [phone] Adonay Haq MD Unavailable +[phone] Denilson Srinivasan MD Unavailable + [phone] Jason Alvares MD Unavailable Ruth Riddle DPM, Podiatry /Foot and Ankle Surgery Unavailable Omar Carmona MD Primary Care Provider +[phone] Jignesh Mathias MD Unavailable Adonay Haq MD Unavailable +1- Omar Carmona MD Unavailable +[phone] Jason Alvares MD Unavailable Jignesh Mathias MD Unavailable Ayad Lopez PhD Unavailable +[phone] Gavi Nieto-C Unavailable +[phone] Encounter Details Date Type Department Care Team (Late st Contact Info) Description 04/08/2022 [facility] Medical Advice [facility] Hepatology Clinic [address] [address] Jayla Plaza RN Social History [...] Answer Date Recorded PHQ-2 Score 1 02/16/2022 [facility] - [...] Sex Assigned at Female 09/12/2020 12:05 PM COOKER SYRUP Legal Sex Female 3:26 AM COOKER SYRUP Gender Identity Female 09/12/2020 12:05 PM COOKER SYRUP Sexual Orientation Straight 12/19/2021 10 :44 AM [...] suspected to have Coronavirus/COVID-19? No / Unsure 04/09/2022 9:27 AM CDT documented as of this encounter Plan of Treatment Upcoming Encounters Date Type Department Care Team (Late st Contact Info) Description 03/26/2025 11:00 AM CDT Therapy Visit [address] [phone] Jason Alvares MD 420 [facility] 295 [place], [place] 0[address] Chaya Castillo, OTR [address] [address] 03/29/2025 10:30 AM CDT Therapy Visit [facility] [address] [place] [phone] [place] [address] MICHAEL 300 [place], [place] [address] 04/02/2025 11:00 AM CDT Therapy Visit [facility] 150 [place] [phone] Jason Alvares MD [address] [place] [address] Chaya Castillo OTR [facility] 150 [facility] [place] [address] 04/11/2025 12:30 PM CDT Office Visit [facility] Primary [facility] Clinic [address] 4th [place] [phone] Omar Carmona MD [address] [place] [address] 230625 04/12/2025 2:15 PM CDT Therapy Visit [facility] 150 [place] [phone] Jason Alvares MD [address] [place] [address] Chaya Castillo OTR [facility] 150 [place] [address] 04/16/2025 11:00 AM CDT [facility] 150 [place] [phone] Jason Alvares MD [address] [place] [address] Chaya Castillo OTR [facility] 150 [place] [address] 04/23/2025 11:00 AM CDT Therapy [facility] 150 [facility] [place] [phone] Jason Alvares MD [address] [place] [address] Chaya Castillo OTR [address] [address] 04/30/2025 11:00 AM CDT Therapy Visit [facility] [address] [phone] Jason Alvares MD [address] [place] [address] Chaya Castillo OTR [address] [address] 05/15/2025 12:30 PM CDT Office Visit [address] [phone] Marquise Hanley MD [address] [place] [address] 06/08/2025 9:15 AM CDT Office Visit [facility] Hepatology Clinic [address] [phone] Jignesh Mathias MD [address] [place] [address] 11/05/2025 1:45 PM CDT Office Visit [facility] Dermatology Clinic [address] 3rd [place] [address] Gavi Nieto PA-C Dermatology [address] [place] [address] documented as of this encounter Goals Goal [...] documented as of this encounter Care Teams Bridge Painter Relationship Specialty Start Date End Date Rio Jaquez MD [address] [place] [address] PCP - General Family Practice 12/02/10 07/13/24 Omar Carmona MD [address] [place] [address] 999235 PCP - General Family Medicine 07/14/24 Barry Kilpatrick MD [address] [place] [address] [id number] [place] [address] Neurology 07/19/14 Michelle Henderson I, RN Nurse Coordinator Neurology 07/19/14 Rio Jaquez MD [address] [place] [address] Family Practice 10/15/14 Jemima Jaramillo MD care technician 11/20/14 Kelley Chin, TANIA [address] 425855 Nurse Coordinator Cardiology 11/04/15 Sydnee Saleem MD 420 [facility] 508 [place] [address] Cardiology 11/04/15 Karlene Moya MD [address] [place] [address] MD Ophthalmology 06/24/17 Wilbert Quintero, OD [address] [place] [address] 930555 Optometry 06/24/17 Rod Gauthier DPM [address] [place] [address] Analyst Geochemical Prospecting Primary Podiatric Medicine 06/21/18 Nallely Hogue, TANIA Registered Nurse 02/20/19 11/23/22 Jan Mahmood MD [address] [place] [address] 263035 Gastroenterology 11/05/20 Brandt Quintana MD [address] [place] [address] Resident 11/05/20 Jan Mahmood MD [address] [place] [address] Assigned Gastroenterology Provider 12/01/20 Rio Jaquez MD 9 [facility] 4 [place] [address] Assigned PCP 11/17/20 09/30/24 Dom Eason MD 717 [facility] 353 [place] [address] Internal Medicine 12/02/20 Jayla Plaza, RN Specialty Wide Area Network Administrator Hepatology 01/09/21 02/13/24 Sydnee Saleem MD [address] [place] [address] [place] [address] [phone] Assigned Heart and Vascular Provider 02/02/21 07/24/22 Jaimie Vernon, TANIA Specialty Wide Area Network Administrator Cardiology 10/28/21 Ruth Riddle DPM, Podiatry/Foot and Ankle Surgery 70411 [facility] 300 [place] [address] Assigned Musculoskeletal Provider 11/30/21 09/30/23 Jason Alvares MD [address] [place] [address] 295 [place], [place] 462495 Assigned Neuroscience Provider 01/03/22 05/15/22 Marquise Hanley MD [address] [place] [address] 480275 Endocrinology, Diabetes, and Metabolism 03/05/22 Vlad Ramey MD [address] [place] [address] 952945 Cardiovascular Disease 05/07/22 Joesph Crowe MD [address] [place] [address] 21500 Surgery 05/07/22 Luis Arrington MD [address] [place] [address] 36525 Assigned Neuroscience Provider 05/16/22 05/14/23 Michelle Padilla, RN Specialty Wide Area Network Administrator Cardiology 07/03/22 Vlad Ramey MD [address] [place] [address] Assigned Heart and Vascular Provider 07/25/22 05/28/23 Marquise Hanley MD [address] [place] [address] 215895 Assigned Endocrinology Provider 08/15/22 Dom Eason MD 717 [facility] MICHAEL 353 [place] [address] Assigned Nephrology Provider 11/28/22 02/19/23 Wagner Oliver MD [address] [place] [address] Critical Care 12/15/22 Laura Epperson NP 717 [facility] 1932 [place] [address] Assigned Nephrology Provider 02/20/23 08/30/24 Thom Taveras MD [address] [facility], R105 [place] [address] Assigned Cancer Care Provider 02/06/23 08/20/23 Joesph Crowe MD [address] [place] [address] 7[address] Surgery 03/17/23 Joesph Crowe MD [address] [place] [address] Assigned Surgical Provider 04/03/23 09/30/24 Adonay Haq MD [address] [place] [address]504 Internal Medicine 06/14/23October, Denilson Jackson MD 6405 [facility] CLEO Black [facility] [address] [place], [place] 532605 Assigned Heart and Vascular Provider 05/29/23 11/28/24 Jason Alvares MD [address] [place] [address] 984675 Assigned Neuroscience Provider 05/15/23 11/28/24 Ruth Riddle DPM, Podiatry/Foot and Ankle Surgery [address] [facility] 300 [place], [place] 278497 Assigned Musculoskeletal Provider 10/22/23 Jignesh Mathias MD [address] [place] [address] Gastroenterology 09/25/24 Adonay Haq MD [address] [place] [address] Assigned PCP 10/01/24 12/28/24 Omar Carmona MD [address] [place] [address] 89261 Assigned PCP 12/29/24 Jason Alvares MD 420 [facility] 295 [place] [address] Assigned Neuroscience Provider 12/29/24 Jignesh Mathias MD [address] [place] [address] Assigned Surgical Provider 12/29/24 Ayad Lopez, PhD LP [address] [place] [address] Assigned Behavioral Health Provider 02/28/25 Gavi Nieto PANavinC 500 [place], [place] [phone] Physician Cable Tender Dermatology 03/19/25 documented as of this encounter
--- OUTSIDE RECORDS SUMMARY | 2025-03-24 20:33 | XMS_ITS | Encounter Summary ---
Author Organization [place] Address [address] [place] [address]646 Care Team Providers Care Saw Offbearer Name Role Phone Rio Jaquez MD Primary Care Provider Barry Kilpatrick MD Unavailable Michelle Henderson I RN Unavailable [phone] Rio Jaquez MD Unavailable +[phone] Jemima Jaramillo MD Unavailable Unavai Kelley Bautista RN Unavailable +[phone] Sydnee Saleem MD Unavailable +[phone] Karlene Moya MD Unavailable +[phone] Wilbert Quintero OD Unavailable +[phone] Rod Gauthier DPM Unavailable +[phone] Jan Mahmood MD Unavailable +[phone] Brandt Quintana MD Unavailable Jan Mahmood MD Unavailable +[phone] Rio Jaquez MD Unavailable +[phone] Dom Eason MD Unavailable Jayla Plaza RN Unavailable +-[phone] Jaimie Vernon RN Unavailable Unavailable Marquise Hanley MD Unavailable +[phone] Vlad Ramey MD Unavailable +-[phone] Joesph Crowe MD Unavailable + [phone] Michelle Padilla RN Unavailable Unavaila ble Marquise Hanley MD Unavailable +-[phone] Wagner Oliver MD Unavailable +[phone] Laura Epperson NP Unavailable + [phone] Joesph Crowe MD Unavailable +[phone] Joesph Crowe MD Unavailable + [phone] Adonay Haq MD Unavailable +[phone] Denilson Srinivasan MD Unavailable + [phone] Jason Alvares MD Unavailable Ruth Riddle DPM, Podiatry /Foot and Ankle Surgery Unavailable Omar Carmona MD Primary Care Provider [phone] Jignesh Mathias MD Unavailable Adonay Haq MD Unavailable [phone] Omar Carmona MD Unavailable +[phone] Jason Alvares MD Unavailable Jignesh Mathias MD Unavailable Ayad Lopez PhD LP Unavailable +[phone] Gavi Nieto PA-C Unavailable +[phone] Encounter Details Date Type Department Care Team (Late st Contact Info) Description 02/09/2024 [facility] [place] Hepatology [address] [address] Jan Mahmood MD 6 [facility] 2A [place] [address] Social History Tobacco Use Types Packs/Day Years [...] Answer Date Recorded PHQ-2 Score 2 08/26/2023 [facility] - Occupational [...] Sex Assigned at Female 09/12/2020 12:05 PM RELATIONSHIP MANAGER Legal Sex Female 3:26 AM RELATIONSHIP MANAGER Gender Identity Female 09/12/2020 12:05 PM RELATIONSHIP MANAGER Sexual Orientation Straight 12/19/2021 10 :44 [...] 03/26/2025 11:00 AM CDT Therapy Visit [address] [phone] Jason Alvares MD [address] [place] [address] [phone] Chaya Castillo, OTR [facility] [address] [place] [address] 03/29/2025 10:30 AM CDT Therapy Visit [facility] [address] [place] [phone] [place] [address] MICHAEL [address] [place], [place] [phone] 04/02/2025 11:00 AM CDT Therapy Visit [address] [phone] Jason Alvares MD [address] [place] [address] Chaya Castillo, OTR [address] [address] 04/11/2025 12:30 PM CDT Office Visit [facility] [address] 4th [place] [address] Omar Carmona MD [address] [place] [address] 500015 04/12/2025 2:15 PM CDT Therapy Visit [address] [phone] Jason Alvares MD [address] [place] [address] 800115 Chaya Castillo, OTR [facility] [address] [place] [address] 04/16/2025 11:00 AM CDT Therapy Visit [facility] [address] [place] [phone] Jason Alvares MD [address] [place] [address] Chaya Castillo OTR [facility] 150 [facility] [place] [address] 04/23/2025 11:00 AM CDT Therapy [facility] 150 [facility] [place] [phone] Jason Alvares MD [address] [place] [address] Chaya Castillo OTR [facility] 150 [facility] [place] [address] 04/30/2025 11:00 AM CDT Therapy [facility] 150 [facility] [place] [phone] Jason Alvares MD [address] [place] [address] Chaya Castillo OTR [facility] 150 [facility] [place] [address] 05/15/2025 12:30 PM CDT Office Visit [address] [phone] Marquise Hanley MD [address] [place] [address] 06/08/2025 9:15 AM CDT Office Visit [facility] [address] [address] Jignesh Mathias MD [address] [place] [address] 11/05/2025 1:45 PM CDT Office Visit [facility] [address] 3rd [place] [address] Gavi Nieto PA-C Dermatology [address] [place] [address] documented as of this encounter Goals [...] Total Score: 9 06/14/20 23 7:18 AM RELATIONSHIP MANAGER documented as of this encounter Care Teams Saw Offbearer Relationship Specialty Start Date End Date Rio Jaquez MD [address] [place] [address] 4 [place] [address] PCP - General Family Practice 12/02/10 07/13/24 Omar Carmona MD [address] [place] [address] PCP - General Family Medicine 07/14/24 Barry Kilpatrick MD [address] [place] [address] [id number] [place], [place] 816025 Neurology 07/19/14 Michelle Henderson I, RN Nurse Coordinator Neurology 07/19/14 Rio Jaquez MD [address] [place] [address] FL 4 [place], [place] 368205 Family Practice 10/15/14 Jemima Jaramillo MD retanner 11/20/14 Kelley Chin, TANIA [address] [phone] Nurse Coordinator Cardiology 11/04/15 Sydnee Saleem MD [address] [place] [address] [facility] [address] [place], [place] 329985 Cardiology 11/04/15 Karlene Moya MD [address] [place] [address] 162185 Ophthalmology 06/24/17 Wilbert Quintero, OD [address] [place] [address] 397535 Optometry 06/24/17 Rod Gauthier DPM [address] [place] [address] 598545 Business [employer] Teacher Primary Podiatric Medicine 06/21/18 Jan Mahmood MD [address] [place] [address] [address] [place], [place] 847435 Gastroenterology 11/05/20 Brandt Quintana MD 1414 [place] [address] Resident 11/05/20 Jan Mahmood MD 516 [facility] 2[facility] [place] [address] Assigned Gastroenterology Provider 12/01/20 Rio Jaquez MD [address] [place] [address] FL 4 [place], [place] 766725 Assigned PCP 11/17/20 09/30/24 Dom Eason MD 717 [place] [facility] [address] 353 [place] [address] Internal Medicine 12/02/20 Jayla Plaza, RN Specialty Buckle Coverer Hepatology 01/09/21 02/13/24 Jaimie Vernon, RN Specialty Buckle Coverer Cardiology 10/28/21 Marquise Hanley MD [address] [place] [address] 34638 Endocrinology, Diabetes, and Metabolism 03/05/22 Vlad Ramey MD [address] [place] [address] 30629 Cardiovascular Disease 05/07/22 Joesph Crowe MD [address] [place] [address] 53[address] Surgery 05/07/22 Michelle Padilla, RN Specialty Buckle Coverer Cardiology 07/03/22 Marquise Hanley MD [address] [place] [address] 04347 Assigned Endocrinology Provider 08/15/22 Wagner Oliver MD [address] [place] [address] Critical Care 12/15/22 Laura Epperson NP 717 [facility] 1932 [place] [address] Assigned Nephrology Provider 02/20/23 08/30/24 Joesph Crowe MD [address] [place] [address] [phone] Surgery 03/17/23 Joesph Crowe MD [address] [place] [address] 382265 Assigned Surgical Provider 04/03/23 09/30/24 Adonay Haq MD [address] [place] [address] 854365 Internal Medicine 06/14/23OctoberDenilson MD [address] [place] [address] Assigned Heart and Vascular Provider 05/29/23 11/28/24 Jason Alvares MD [address] [place] [address] 295 [place], [place] 748165 Assigned Neuroscience Provider 05/15/23 11/28/24 Ruth Riddle DPM, Podiatry/Foot and Ankle Surgery [address] [place] [address] Assigned Musculoskeletal Provider 10/22/23 Jignesh Mathias MD [address] [place] [address] 082195 Gastroenterology 09/25/24 Adonay Haq MD [address] [place] [address] Assigned PCP 10/01/24 12/28/24 Omar Carmona MD [address] [place] [address] 842975 Assigned PCP 12/29/24 Jason Alvares MD [address] [place] [address] [phone] Assigned Neuroscience Provider 12/29/24 Jignesh Mathias MD [address] [place] [address] 53779 Assigned Surgical Provider 12/29/24 Ayad Lopez, PhD LP [address] [place] [address] 574035 Assigned Behavioral Health Provider 02/28/25 Gavi Nieto PANavinC [address] [place] [address] Physician Perlite Grinder Dermatology 03/19/25 documented as of this encounter
--- OUTSIDE RECORDS SUMMARY | 2025-03-24 20:33 | XMS_ITS | Encounter Summary ---
Author Organization [facility] Address [address] [place] [address] Care Team Providers Care Zinc Skimmer Name Role Phone Rio Jaquez MD Primary Care Provider Barry Kilpatrick MD Unavailable Michelle Henderson I RN Unavailable [phone] Rio Jaquez MD Unavailable +[phone] Jemima Jaramillo MD Unavailable Unavai Kelley Bautista RN Unavailable [phone] Sydnee Saleem MD Unavailable [phone] Karlene Moya MD Unavailable Wilbert Quintero OD Unavailable +[phone] Rod Gauthier DPM Unavailable [phone] Jan Mahmood MD Unavailable [phone] Brandt Quintana MD Unavailable Jan Mahmood MD Unavailable +[phone] Rio Jaquez MD Unavailable [phone] Dom Eason MD Unavailable Jayla Plaza RN Unavailable +[phone] Jaimie Vernon RN Unavailable Unavailable Marquise Hanley MD Unavailable +[phone] Vlad Ramey MD Unavailable +[phone] Joesph Crowe MD Unavailable + [phone] Michelle Padilla RN Unavailable Unavaila ble Marquise Hanley MD Unavailable +[phone] Wagner Oliver MD Unavailable +[phone] Laura Epperson NP Unavailable + [phone] Joesph Crowe MD Unavailable + [phone] Joesph Crowe MD Unavailable + [phone] Adonay Haq MD Unavailable [phone] Denilson Srinivasan MD Unavailable + [phone] Jason Alvares MD Unavailable Ruth Riddle DPM, Podiatry /Foot and Ankle Surgery Unavailable Omar Carmona MD Primary Care Provider [phone] Jignesh Mathias MD Unavailable Adonay Haq MD Unavailable [phone] Omar Carmona MD Unavailable [phone] Jason Alvares MD Unavailable Jignesh Mathias MD Unavailable Ayad Lopez PhD LP Unavailable +[phone] Gavi Nieto PA-C Unavailable [phone] Encounter Details Date Type Department Care Team (Late st Contact Info) Description 02/02/2024 [facility] [place] [facility] [address] [address] Marquise Hanley MD [address] [place] [address] Social History Tobacco Use Types Packs/Day Years [...] Answer Date Recorded PHQ-2 Score 2 08/26/2023 [facility] - [...] Sex Assigned at Female 09/12/2020 12:05 PM ADVERTISING COPY WRITER Legal Sex Female 3:26 AM ADVERTISING COPY WRITER Gender Identity Female 09/12/2020 12:05 PM ADVERTISING COPY WRITER Sexual Orientation Straight 12/19/2021 10 :44 [...] 03/26/2025 11:00 AM CDT Therapy Visit [address] [phone] Jason Alvares MD [address] [place] [address] [phone] Chaya Castillo [facility]TR [facility] [address] [place] [address] 03/29/2025 10:30 AM CDT Therapy Visit [facility] [place] [address] [place] [phone] [place] [address]EL [address] [place], [place] [phone] 04/02/2025 11:00 AM CDT Therapy Visit [address] [phone] Jason Alvares MD [address] [place] [address] Chaya Castillo OTR [address] [address] 04/11/2025 12:30 PM CDT Office Visit [facility] [address] 4th [place] [phone] Omar Carmona MD [address] [place] [address] 901375 04/12/2025 2:15 PM CDT Therapy Visit [address] [phone] Jason Alvares MD [address] [place] [address] [phone] Castillo, Chaya A, OTR [facility] 150 [place] [address] 04/16/2025 11:00 AM CDT Therapy Visit [facility] 150 [facility] [place] [phone] Jason Alvares MD [address] [place] [address] Chaya Castillo, OTR [facility] 150 [facility] [place] [address] 04/23/2025 11:00 AM CDT Therapy [facility] 150 [facility] [place] [phone] Jason Alvares MD [address] [place] [address] Chaya Castillo OTR [facility] 150 [place] [address] 04/30/2025 11:00 AM CDT Therapy [facility] 150 [facility] [place] [address] Jason Alvares MD [address] [place] [address] 17[address] Chaya Castillo OTR [facility] 150 [place] [address] 05/15/2025 12:30 PM CDT Office Visit [address] [address] Marquise Hanley MD [address] [place] [address] 06/08/2025 9:15 AM CDT Office Visit [facility] [address] [phone] Jignesh Mathias MD [address] [place] [address] 11/05/2025 1:45 PM CDT Office Visit [facility] [address] 3rd [place] [address] Gavi Nieto PA-C Dermatology [address] [place] [address] documented as of this encounter Goals [...] Total Score: 9 06/14/20 23 7:18 AM ADVERTISING COPY WRITER documented as of this encounter Care Teams Zinc Skimmer Relationship Specialty Start Date End Date Rio Jaquez MD [address] [place] [address] 4 [place] [address] PCP - General Family Practice 12/02/10 07/13/24 Omar Carmona MD [address] [place] [address] PCP - General Family Medicine 07/14/24 ManBarry isaac MD [address] [place] [address] [id number] [place] [address] Neurology 07/19/14 Michelle Henderson I, RN Nurse Coordinator Neurology 07/19/14 Rio Jaquez MD [address] [place] [address] FL 4 [place] [address] Family Practice 10/15/14 Jemima Jaramillo MD gold prospector 11/20/14 Kelley Chin, TANIA [address] 760145 Nurse Coordinator Cardiology 11/04/15 Sydnee Saleem MD [address] [place] [address] [facility] [address] [place], [place] [phone] Cardiology 11/04/15 Karlene Moya MD [address] [place] [address] 467285 Ophthalmology 06/24/17 Wilbert Quintero, OD [address] [place] [address] Optometry 06/24/17 Rod Gauthier DPM [address] [place] [address] 739035 Car Supervisor Primary Podiatric Medicine 06/21/18 Jan Mahmood MD [address] [place] [address] [address] [place] [address] Gastroenterology 11/05/20 Brandt Quintana MD 1414 [place] [address] Resident 11/05/20 Jan Mahmood MD 516 [facility] 2A [place] [address] Assigned Gastroenterology Provider 12/01/20 Rio Jaquez MD 9 [facility] [address] 4 [place] [address] Assigned PCP 11/17/20 09/30/24 Dom Eason MD 717 [facility] 353 [place] [address] Internal Medicine 12/02/20 Jayla Plaza, RN Specialty Administrative Services Specialist Hepatology 01/09/21 02/13/24 Jaimie Vernon, RN Specialty Administrative Services Specialist Cardiology 10/28/21 Marquise Hanley MD [address] [place] [address]37 Endocrinology, Diabetes, and Metabolism 03/05/22 Vlad Ramey MD [address] [place] [address]238 Cardiovascular Disease 05/07/22 Joesph Crowe MD [address] [place] [address] 90383 Surgery 05/07/22 Michelle Padilla, RN Specialty Administrative Services Specialist Cardiology 07/03/22 Marquise Hanley MD [address] [place] [address] 10289 Assigned Endocrinology Provider 08/15/22 Wagner Oliver MD [address] [address] Critical Care 12/15/22 Laura Epperson NP 717 [facility] 1932 [place] [address] Assigned Nephrology Provider 02/20/23 08/30/24 Joesph Crowe MD [address] [place] [address] 01996 Surgery 03/17/23 Joesph Crowe MD [address] [place] [address] 35893 Assigned Surgical Provider 04/03/23 09/30/24 Adonay Haq MD [address] [place] [address]10 Internal Medicine 06/14/23OctoberDenilson MD [address] [place] [address] Assigned Heart and Vascular Provider 05/29/23 11/28/24 Jason Alvares MD [address] [place] [address] 295 [place], [place] 570405 Assigned Neuroscience Provider 05/15/23 11/28/24 Ruth Riddle DPM, Podiatry/Foot and Ankle Surgery [address] [place] [address] Assigned Musculoskeletal Provider 10/22/23 Jignesh Mathias MD [address] [place] [address] 480215 Gastroenterology 09/25/24 Adonay Haq MD [address] [place] [address] 238205 Assigned PCP 10/01/24 12/28/24 Omar Carmona MD [address] [place] [address] [phone] Assigned PCP 12/29/24 Jason Alvares MD [address] [place] [address] 566305 Assigned Neuroscience Provider 12/29/24 Jignesh Mathias MD [address] [place] [address] 70001 Assigned Surgical Provider 12/29/24 Ayad Lopez, PhD LP [address] [place] [address] 835605 Assigned Behavioral Health Provider 02/28/25 Gavi Nieto, PA-C [address] [place] [address]98 Physician Retail Sales Advisor Dermatology 03/19/25 documented as of this encounter
--- OUTSIDE RECORDS SUMMARY | 2025-03-24 20:33 | XMS_ITS | Encounter Summary ---
Author Organization [facility] Address [address] [place] [address] Care Team Providers Care Telecom Engineer Name Role Phone Rio Jaquez MD Primary Care Provider Barry Kilpatrick MD Unavailable Michelle Henderson RN Unavailable [phone] Rio Jaquez MD Unavailable +[phone] Jemima Jaramillo MD Unavailable Unavai Kelley Bautista RN Unavailable +[phone] Sydnee Saleem MD Unavailable +[phone] Karlene Moya MD Unavailable +[phone] Wilbert Quintero OD Unavailable +[phone] Rod Gauthier DPM Unavailable +[phone] Nallely Hogue RN Unavailable Unavailable Jan Mahmood MD Unavailable +[phone] Brandt Quintana MD Unavailable Jan Mahmood MD Unavailable +[phone] Rio Jaquez MD Unavailable +[phone] Dom Eason MD Unavailable +[phone] Jayla Plaza RN Unavailable +[phone] Sydnee [...] Unavailable +[phone] Dom Eason MD Unavailable +[phone] Wagner Oliver MD Unavailable +[phone] Laura Epperson NP Unavailable +[phone] Thom Taveras MD Unavailable +[phone] Joesph Crowe MD Unavailable + [phone] Joesph Crowe MD Unavailable + [phone] Adonay Haq MD Unavailable +[phone] Denilson Srinivasan MD Unavailable + [phone] Jason Alvares MD Unavailable Ruth Riddle DPM, Podiatry /Foot and Ankle Surgery Unavailable Omar Carmona MD Primary Care Provider +1- Jignesh Mathias MD Unavailable Adonay Haq MD Unavailable +1- Omar Carmona MD Unavailable +[phone] Jason Alvares MD Unavailable Jignesh Mathias MD Unavailable Ayad Lopez PhD Unavailable +[phone] Gavi Nieto-C Unavailable +[phone] Encounter Details Date Type Department Care Team (Late st Contact Info) Description 03/26/2022 MyC Medical Advice [facility] [address] 4th [place] [address] Rio Jaquez MD [address] [place] [address] 4 [place] [address] Social History Tobacco Use Types [...] any clubs o r organizations such as congregation groups, unions, fraternal or athletic groups, or [...] Answer Date Recorded PHQ-2 Score 1 02/16/2022 [facility] - Occupational Stress Questionnaire Answer Date [...] Assigned at Female 09/12/2020 12:05 PM SUPERVISOR INTELLIGENCE ANALYST Legal Sex Female 3:26 AM SUPERVISOR INTELLIGENCE ANALYST Gender Identity Female 09/12/2020 12:05 PM SUPERVISOR INTELLIGENCE ANALYST Sexual Orientation Straight 12/19/2021 10 :44 [...] suspected to have Coronavirus/COVID-19? No / Unsure 03/25/2022 8:05 AM CDT documented as of this encounter Plan of Treatment Upcoming Encounters Date Type Department Care Team (Late st Contact Info) Description 03/26/2025 11:00 AM CDT Therapy Visit [address] [phone] Jason Alvares MD 420 [facility] 295 [place], [place] 765305 Chaya Castillo OTR FV [address] [address] 03/29/2025 10:30 AM CDT Therapy Visit [facility] [address] [place] [address] [place] [address] [place], [place] [phone] 04/02/2025 11:00 AM CDT Therapy Visit [facility] [place] [address] [place] [address] Jason Alvares MD [address] [place] [address] 394095 Chaya Castillo, OTR [facility] [place] 150 [place] [address] 04/11/2025 12:30 PM CDT Office Visit [facility] [address] 4th [place] [phone] Omar Carmona MD [address] [place] [address] 04/12/2025 2:15 PM CDT Therapy [facility] 150 [place] [address] Jason Alvares MD [address] [place] [address] 442425 Chaya Castillo, OTR [facility] 150 [place] [address] 04/16/2025 11:00 AM CDT Therapy [facility] 150 [facility] [place] [address] Jason Alvares MD [address] [place] [address] 372935 Chaya Castillo, OTR [facility] [place] 150 [facility] [place] [address] 04/23/2025 11:00 AM CDT Therapy [facility] 150 [facility] [place] [address] Jason Alvares MD [address] [place] [address] Chaya Castillo, OTR [facility] 150 [place] [address] 04/30/2025 11:00 AM CDT Therapy Visit [facility] [address] [phone] Jason Alvares MD [address] [place] [address] Chaya Castillo, OTR [address] [address] 05/15/2025 12:30 PM CDT Office Visit [address] [phone] Marquise Hanley MD [address] [place] [address] 576645 06/08/2025 9:15 AM CDT Office Visit [facility] [address] [phone] Jignesh Mathias MD [address] [place] [address] 11/05/2025 1:45 PM CDT Office Visit [facility] [address] 3rd [place] [address] Gavi Nieto PA-C Dermatology [address] [place] [address]69 documented as of this encounter Goals Goal [...] documented as of this encounter Care Teams Telecom Engineer Relationship Specialty Start Date End Date Rio Jaquez MD [address] [place] [address] PCP - General Family Practice 12/02/10 07/13/24 Omar Carmona MD [address] [place] [address] PCP - General Family Medicine 07/14/24 Barry Kilpatrick MD [address] [place] [address] [id number] [place], [place] 592105 Neurology 07/19/14 Michelle Henderson I, RN Nurse Coordinator Neurology 07/19/14 Rio Jaquez MD [address] [place] [address] 189785 Family Practice 10/15/14 Jemima Jaramillo MD roofing laborer 11/20/14 Kelley Chin, TANIA [address] [address] Nurse Coordinator Cardiology 11/04/15 Sydnee Saleem MD 420 [facility] 508 [place], [place] 471535 Cardiology 11/04/15 Karlene Moya MD [address] [place] [address] 751325 Ophthalmology 06/24/17 Wilbert Quintero, OD 909 [place], [place] 559165 Optometry 06/24/17 Rod Gauthier DPM 909 [place], [place] 474775 Meeting/Event Planner Primary Podiatric Medicine 06/21/18 Nallely Hogue, RN Registered Nurse 02/20/19 11/23/22 Jan Mahmood MD [address] [place] [address] 2A [place] [address] Gastroenterology 11/05/20 Brandt Quintana MD [address] [place] [address] Resident 11/05/20 Jan Mahmood MD [address] [place] [address] 2A [place], [place] 873025 Assigned Gastroenterology Provider 12/01/20 Rio Jaquez MD 909 [facility] 4 [place] [address] Assigned PCP 11/17/20 09/30/24 Dom Eason MD [address] [place] [address] 353 [place] [address] Internal Medicine 12/02/20 Jayla Plaza, RN Specialty Crusher Foreman Hepatology 01/09/21 02/13/24 Sydnee Saleem MD 6550 [facility] [address] [place] [address] Assigned Heart and Vascular Provider 02/02/21 07/24/22 Jaimie Vernon, TANIA Specialty Crusher Foreman Cardiology 10/28/21 Ruth Riddle DPM, Podiatry/Foot and Ankle Surgery [address] [facility] 300 [place] [address] Assigned Musculoskeletal Provider 11/30/21 09/30/23 Jason Alvares MD [address] [place] [address] 295 [place] [address] Assigned Neuroscience Provider 01/03/22 05/15/22 Marquise Hanley MD [address] [place] [address] Endocrinology, Diabetes, and Metabolism 03/05/22 Vlad Ramey MD [address] [place] [address] 258315 Cardiovascular Disease 05/07/22 Joesph Crowe MD [address] [place] [address] Surgery 05/07/22 Luis Arrington MD [address] [place] [address]23 Assigned Neuroscience Provider 05/16/22 05/14/23 Michelle Padilla, RN Specialty Crusher Foreman Cardiology 07/03/22 Vlad Ramey MD [address] [place] [address] Assigned Heart and Vascular Provider 07/25/22 05/28/23 Marquise Hanley MD [address] [place] [address]28 Assigned Endocrinology Provider 08/15/22 Dom Eason MD [address] [place] [address] Assigned Nephrology Provider 11/28/22 02/19/23 Wagner Oliver MD 6401 [place] [address] Critical Care 12/15/22 Laura Epperson NP [address] [place] [address] 1932 [place] [address] Assigned Nephrology Provider 02/20/23 08/30/24 Thom Taveras MD [facility] [place] 3424005 [place] [address] Assigned Cancer Care Provider 02/06/23 08/20/23 Joesph Crowe MD [address] [place] [address]58 Surgery 03/17/23 Joesph Crowe MD [address] [place] [address] 38[address] Assigned Surgical Provider 04/03/23 09/30/24 Adonay Haq MD [address] [place] [address] Internal Medicine 06/14/23October, Denilson Jackson MD [address] [facility] [address] [place] [address] Assigned Heart and Vascular Provider 05/29/23 11/28/24 Jason Alvares MD [address] [place] [address] Assigned Neuroscience Provider 05/15/23 11/28/24 Ruth Riddle DPM, Podiatry/Foot and Ankle Surgery [address] [place] [address] Assigned Musculoskeletal Provider 10/22/23 Jignesh Mathias MD [address] [place] [address] Gastroenterology 09/25/24 Adonay Haq MD [address] [place] [address] Assigned PCP 10/01/24 12/28/24 Omar Carmona MD [address] [place] [address] 570915 Assigned PCP 12/29/24 Jason Alvares MD [address] [place] [address] 396095 Assigned Neuroscience Provider 12/29/24 Jignesh Mathias MD [address] [place] [address] 890495 Assigned Surgical Provider 12/29/24 Ayad Lopez, PhD LP [address] [place] [address] Assigned Behavioral Health Provider 02/28/25 Gavi Nieto, PA-C [address] [place] [address] [phone] Physician Bleaching Machine Operator Dermatology 03/19/25 documented as of this encounter
--- OUTSIDE RECORDS SUMMARY | 2025-03-24 20:33 | XMS_ITS | Encounter Summary ---
Author Organization [facility] Address [address] [place] [address] Care Team Providers Care Networking Technician Name Role Phone Rio Jaquez MD Primary Care Provider Barry Kilpatrick MD Unavailable Michelle Henderson RN Unavailable [phone] Rio Jaquez MD Unavailable +[phone] Jemima Jaramillo MD Unavailable Unavai Kelley Bautista RN Unavailable +[phone] Sydnee Saleem MD Unavailable +[phone] Karlene Moya MD Unavailable +[phone] Wilbert Quintero OD Unavailable +[phone] Rod Gauthier DPM Unavailable +[phone] Nallely Hogue RN Unavailable Unavailable Jan Mahmood MD Unavailable +[phone] Brandt Quintana MD Unavailable +[phone] Jan Mahmood MD Unavailable +[phone] Rio Jaquez MD Unavailable +[phone] Dom Eason MD Unavailable +[phone] Jayla Plaza RN Unavailable +[phone] Sydnee [...] Unavailable +[phone] Dom Eason MD Unavailable +[phone] Wagner Oliver MD Unavailable +[phone] Laura Epperson NP Unavailable +[phone] Thom Taveras MD Unavailable +[phone] Joesph Crowe MD Unavailable + [phone] Joesph Crowe MD Unavailable + [phone] Adonay Haq MD Unavailable +[phone] Denilson Sirnivasan MD Unavailable + [phone] Jason Alvares MD Unavailable Ruth Riddle DPM, Podiatry /Foot and Ankle Surgery Unavailable Omar Carmona MD Primary Care Provider +1- Jignesh Mathias MD Unavailable Adonay Haq MD Unavailable +1- Omar Carmona MD Unavailable +[phone] Jason Alvares MD Unavailable Jignesh Mathias MD Unavailable Ayad Lopez PhD Unavailable [phone] Gavi Nieto-C Unavailable [phone] Encounter Details Date Type Department Care Team (Late st Contact Info) Description 04/24/2022 External Order Results [facility] [address] [place] [address] Outside, Provider HLD (hyperlipidemia) Social History Tobacco Use Types Packs/Day Years [...] Answer Date Recorded PHQ-2 Score 2 04/21/2022 [facility] [...] place to sleep or slept in a half-way (including now)? No 08/27/2021 Comments No Sex and Gender Information Value Date Recorded Sex Assigned at Female 09/12/2020 12:05 PM ONLINE MARKETER Legal Sex Female 3:26 AM ONLINE MARKETER Gender Identity Female 09/12/2020 12:05 PM ONLINE MARKETER Sexual Orientation Straight 12/19/2021 10 :44 AM [...] suspected to have Coronavirus/COVID-19? No / Unsure 04/17/2022 9:50 AM CDT documented as of this encounter Plan of Treatment Upcoming Encounters Date Type Department Care Team (Late st Contact Info) Description 03/26/2025 11:00 AM CDT Therapy Visit [address] [phone] Jason Alvares MD [address] 316215 Chaya Castillo, OTR [address] [address] 03/29/2025 10:30 AM CDT Therapy Visit [facility] [address] [facility] [address] [place] [phone] [place] [address] MICHAEL 300 [place] [address] 04/02/2025 11:00 AM CDT Therapy Visit [address] [phone] Jason Alvares MD [address] [place] [address] [address] Chaya Castillo OTR [facility] 150 [place] [address] 04/11/2025 12:30 PM CDT Office Visit [facility] [address] 4th [place] [phone] Omar Carmona MD [address] [place] [address] 04/12/2025 2:15 PM CDT Therapy Visit [address] [phone] Jason Alvares MD [address] [place] [address] Chaya Castillo OTR [facility] 150 [place] [address] 04/16/2025 11:00 AM CDT [facility] 150 [place] [phone] Jason Alvares MD [address] [place] [address] Chaya Castillo OTR [facility] 150 [place] [address] 04/23/2025 11:00 AM CDT Therapy [facility] 150 [place] [phone] Jason Alvares MD [address] [place] [address] Chaya Castillo, OTR [facility] 150 [place] [address] 04/30/2025 11:00 AM CDT Therapy Visit [facility] 150 [place] [address] Jason Alvares MD [address] [place] [address] 816755 Chaya Castillo OTR [facility] 150 [place] [address] 05/15/2025 12:30 PM CDT Office Visit [address] [phone] Marquise Hanley MD [address] [place] [address] 06/08/2025 9:15 AM CDT Office Visit [facility] [address] [phone] Jignesh Mathias MD [address] [place] [address] 11/05/2025 1:45 PM CDT Office Visit [facility] [address] 3rd [place] [phone] Gavi Nieto PA-C Dermatology [address] [place] [address] documented as of this encounter Goals Goal Patient Goal Type Associated Problems Recent Progress Patient-Stated? Author Quit smoking / using tobacco Lifestyle Rio Will MD Note: 06/25/14 planned quit date documented as of this encounter Procedures Procedure Name Priority Date/Time Associated Diagnosis Comments LABORATORY MISCELLANEOUS ORDER Routine 04/24/2022 12:00 AM CDT HLD (hyperlipidemia) documented in this encounter Results * Other Laboratory; invitae; genetic testing - FH (Laboratory Miscellaneous Order) (04/24/2022 12:00 AM CDT) Buccal swab 04/24/2022 Larisa Noriega GC LAB - BLOOD ORDERABLES Final Re sult [facility] PFT documented in this encounter Visit Diagnoses Diagnosis HLD (hyperlipidemia) Other and unspecified hyperlipidemia documented in this encounter Additional Health Concerns Infection Onset Date Last Indicated Resolved Time MRSA Comment:Added from external infection. 10/23/2020 10/21/2020 Rule Out COVID-19 02/09/2024 02/09/2024 02/09/2024 1:52 AM CDT Assessment Noted Time PHQ-9 Depression Total Score: 4 03/24/20 25 9:05 AM CDT documented as of this encounter Care Teams Networking Technician Relationship Specialty Start Date End Date Rio Jaquez MD [address] [place] [address] 4 [place] [address] PCP - General Family Practice 12/02/10 07/13/24 Omar Carmona MD [address] [place] [address]327 PCP - General Family Medicine 07/14/24 Barry Kilpatrick MD [address] [place] [address] [id number] [place] [address] Neurology 07/19/14 Michelle Henderson I, RN Nurse Coordinator Neurology 07/19/14 Rio Jaquez MD 9 [facility] 4 [place], [place] 846825 Family Practice 10/15/14 Jemima Jaramillo MD roll filler 11/20/14 Kelley Chin RN [facility] [address] [place] [address] [phone] Nurse Coordinator Cardiology 11/04/15 Sydnee Saleem MD 420 [facility] 508 [place], [place] 115235 Cardiology 11/04/15 Karlene Moya MD [address] [place] [address] 159385 Ophthalmology 06/24/17 Wilbert Quintero, OD [address] [place] [address] 451305 Optometry 06/24/17 Rod Gauthier DPM [address] [place] [address] 716925 Pulmonary Function Technician Primary Podiatric Medicine 06/21/18 Nallely Hogue, RN Registered Nurse 02/20/19 11/23/22 Jan Mahmood MD [address] [place] [address] Gastroenterology 11/05/20 Brandt Quintana MD [facility]4 [place] [address] Resident 11/05/20 Jan Mahmood MD 516 [facility] P[facility] 2A [place] [address] Assigned Gastroenterology Provider 12/01/20 Rio Jaquez MD 909 [facility] 4 [place], [place] 899995 Assigned PCP 11/17/20 09/30/24 Dom Eason MD 717 [facility] 353 [place], [place] 526434 Internal Medicine 12/02/20 Jayla Plaza RN Specialty Refined Syrup Operator Hepatology 01/09/21 02/13/24 Sydnee Saleem MD [address] [place] [address]06 Assigned Heart and Vascular Provider 02/02/21 07/24/22 Jaimie Vernon, RN Specialty Refined Syrup Operator Cardiology 10/28/21 Ruth Riddle DPM, Podiatry/Foot and Ankle Surgery [address] [place], [place] 823257 Assigned Musculoskeletal Provider 11/30/21 09/30/23 Jason Alvares MD 420 [facility] 295 [place], [place] 080525 Assigned Neuroscience Provider 01/03/22 05/15/22 Marquise Hanley MD 909 [place], [place] [phone] Endocrinology, Diabetes, and Metabolism 03/05/22 Vlad Ramey MD [address] [place] [address] 12354 Cardiovascular Disease 05/07/22 Joesph Crowe MD [address] [place] [address] 9[address]61 Surgery 05/07/22 Luis Arrington MD [address] [place] [address] 557065 Assigned Neuroscience Provider 05/16/22 05/14/23 Michelle Padilla RN Specialty Refined Syrup Operator Cardiology 07/03/22 Vlad Ramey MD [address] [place] [address] [phone] Assigned Heart and Vascular Provider 07/25/22 05/28/23 Marquise Hanley MD [address] [place] [address] [phone] Assigned Endocrinology Provider 08/15/22 Dom Eason MD [address] [place] [address] 353 [place], [place] 301814 Assigned Nephrology Provider 11/28/22 02/19/23 Wagner Oliver MD [address] [place] 186095 Critical Care 12/15/22 Laura Epperson, LULU 7 [facility] 1932 [place], [place] 707164 Assigned Nephrology Provider 02/20/23 08/30/24 Thom Taveras MD [address] [place] [address] Assigned Cancer Care Provider 02/06/23 08/20/23 Joesph Crowe MD [address] [place] [address] 25325 MD Surgery 03/17/23 Joesph Crowe MD [address] [place] [address] 76218 Assigned Surgical Provider 04/03/23 09/30/24 Adonay Haq MD [address] [place] [address] 457245 Internal Medicine 06/14/23OctoberDenilson MD [address] [facility]00 [place], [place] 709555 Assigned Heart and Vascular Provider 05/29/23 11/28/24 Jason Alvares MD [address] [place] [address] 295 [place], [place] 606845 Assigned Neuroscience Provider 05/15/23 11/28/24 Ruth Riddle DPM, Podiatry/Foot and Ankle Surgery [address] [place] [address] Assigned Musculoskeletal Provider 10/22/23 Jignesh Mathias MD [address] [place] [address] 485885 Gastroenterology 09/25/24 Adonay Haq MD [address] [place] [address] Assigned PCP 10/01/24 12/28/24 Omar Carmona MD [address] [place] [address] Assigned PCP 12/29/24 Jason Alvares MD [address] [place] [address] Assigned Neuroscience Provider 12/29/24 Jignesh Mathias MD [address] [place] [address] [phone] Assigned Surgical Provider 12/29/24 Ayad Lopez, PhD LP [address] [place] [address] Assigned Behavioral Health Provider 02/28/25 Gavi Nieto, PA-C [address] [place] [address] 034945 Physician Graphics Software Engineer Dermatology 03/19/25 documented as of this encounter
--- NOTE | 2025-03-24 20:47 | ED.GENADULT ---
HPI - General Adult General Time Seen by Provider: 20:47 <Alisha Kelly MD - Last Filed: 03/26/25 16:44> Date Seen: 03/24/25 <Alisha Kelly MD - Last Filed: 03/26/25 16:44> Chief complaint: Cough <Alisha Kelly MD - Last Filed: 03/26/25 16:44> Stated complaint: Check vitals <Alisha Kelly MD - Last Filed: 03/26/25 16:44> Time Seen by Provider: 03/24/25 20:45 <Alisha Kelly MD - Last Filed: 03/26/25 16:44> Source: patient and RN notes reviewed <Alisha Kelly MD - Last Filed: 03/26/25 16:44> Mode of arrival: ambulatory <Alisha Kelly MD - Last Filed: 03/26/25 16:44> Limitations: no limitations <Alisha Kelly MD - Last Filed: 03/26/25 16:44> History of Present Illness HPI narrative: This 54-year-old female is coming in with complaint of cough with yellow sputum for about 5 months. She came in tonight because her chest feels heavy and there is some chest tightness, it is most with breathing. She noted that her pulse oximetry was 86-93% at home as well, is usually in the upper 90s. This has been there all day. She denies any history of lung disease or COPD, she states she was placed on inhalers about 4 months ago but they do not really seem to help her. She has not noted the smoke to make her breathing worse or the poor air quality. She notes when the humidity goes up her breathing feels worse. She has had this sense of chest heaviness and tightness before. Again, it has been there all day. She has not noted fevers. She has supposedly done pulmonary function tests her breathing test and states that they were normal. She states she has had her lungs checked out and was told they were normal. 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 She has had a history of sarcoidosis and mediastinum ask P per her records. She is not aware of any cardiac disease like heart attack but she states she had severe nutritional deficiencies due to alcoholism and had severe peripheral neuropathy and could not walk. She states she either went into full cardiac or respiratory arrest and but was brought back. Her records also note patent foramen ovale. She notes sometimes her ankles swell buttock goes down with elevating. She does not feel like she has been retaining fluid. Patient does continue to smoke. She denies any history of blood clots. She states that she is more mobile than she has been in a long time and is working to continue this. Active problem list from outside records are mixed stress and urge urinary incontinence, syncope and collapse 2019 for, left inguinal hernia, nutritional deficiency, osteoporosis with compression fracture spine T12, osteopenia multiple sites, adrenal nodule, chronic kidney disease stage 2, posttraumatic seizures, metabolic encephalopathy with cirrhosis of liver with acute on chronic diastolic failure noted 2020, insomnia, mixed anxiety and depressive disorder, lipodystrophy free, diffuse connective tissue disease, folate and B12 deficiency, mediastinal lymphadenopathy with diagnosis of sarcoidosis noted in chart resolved, Joni deficiency neuropathy, tobacco use ongoing, hypothyroidism, patent foramen ovale, vitamin-D deficiency, uterine fibroid, obstructive sleep apnea, ataxia, fibromyalgia, peripheral neuropathy and male nutrition from 2010, hypertension, alcohol abuse, hypertension, ovarian cyst, acceptable headache, GERD, migraine, secundum ASD. She has had a history of chronic kidney disease up to stage for with acute renal impairment and acute tubular necrosis. She has had a subdural hemorrhage with a fall in 2020. She has had a history of alcoholic cirrhosis of liver with ascites 2020. Chart states sobriety since 2019. <Alisha Kelly MD - Last Filed: 03/26/25 16:44> Related Data Home medications: Home Medications ?Medication ?Instructions ?Recorded ?Confirmed THC 02/05/22 03/24/25 levetiracetam 1,000 mg tablet 1,000 mg PO Q12H 02/05/22 03/24/25 levothyroxine 50 mcg tablet 50 mcg .Route .COMPLEX 02/05/22 03/24/25 magnesium oxide 400 mg (241.3 mg 400 mg PO DAILY 02/05/22 03/24/25 magnesium) tablet melatonin 3 mg capsule 3 mg PO HS PRN 02/05/22 03/24/25 omeprazole 40 mg capsule,delayed 40 mg PO DAILY 02/05/22 03/24/25 release pregabalin 50 mg capsule 50 mg PO Q12H 02/05/22 03/24/25 rifaximin 550 mg tablet (Xifaxan) 550 mg PO BID 02/05/22 03/24/25 Repatha Syringe 09/11/23 folic acid 400 mcg tablet 0.4 mg PO DAILY 09/11/23 03/24/25 cholecalciferol (vitamin D3) 50 50 mcg PO DAILY 03/24/25 03/24/25 mcg (2,000 unit) tablet (Vitamin D3) evolocumab 140 mg/mL subcutaneous 140 mg subcut .Q 14 days 03/24/25 03/24/25 pen injector (Repatha SureClick) ferrous gluconate 324 mg (38 mg 324 mg PO DAILY 03/24/25 03/24/25 iron) tablet hydroxyzine HCl 25 mg tablet 25 - 50 mg PO Q8H PRN anxiety 03/24/25 03/24/25 midodrine 10 mg tablet 10 mg PO DAILY 03/24/25 03/24/25 psyllium 1 tbsp PO QAM 03/24/25 03/24/25 thiamine mononitrate (vit B1) 100 100 mg PO DAILY 03/24/25 03/24/25 mg tablet Previous Rx's ?Medication ?Instructions ?Recorded levetiracetam 250 mg tablet 250 mg PO BID #60 tabs 08/31/24 (Amanda) <Alisha Kelly MD - Last Filed: 03/26/25 16:44> Allergies/adverse reactions: Allergies Allergy/AdvReac Type Severity Reaction Status Date / Time cephalexin Allergy Severe Anaphylaxis Verified 03/24/25 21:07 duloxetine Allergy Severe Anaphylaxis Verified 03/24/25 21:07 Pertussis Vaccines Allergy Severe Anaphylaxis Verified 03/24/25 21:07 [id number]-[id number] Reductase Allergy Severe elevated Verified 03/24/25 21:07 Inhibitor LFT Sulfa (Sulfonamide Allergy Severe Anaphylaxis Verified 03/24/25 21:07 Antibiotics) latex Allergy Mild Rash Verified 03/24/25 21:07 codeine Allergy Unknown Verified 03/24/25 21:07 gabapentin AdvReac Mild Verified 03/24/25 21:07 <Alisha Kelly MD - Last Filed: 03/26/25 16:44> Review of Systems Status of ROS: Reports: 6 or more systems reviewed and unremarkable except as noted in History and below <Alisha Kelly MD - Last Filed: 03/26/25 16:44> [facility] Medical History: Medical History (Updated 03/24/25 @ 22:16 by Alisha Kelly MD) Clotting disorder ?D68.9 - Coagulation defect, unspecified (ICD-10) Sarcoidosis ?D86.9 - Sarcoidosis, unspecified (ICD-10) MRSA infection ?A49.02 - Methicillin resistant Staphylococcus aureus infection, unspecified site (ICD-10) Acute tubular necrosis ?N17.0 - Acute kidney failure with tubular necrosis (ICD-10) PFO (patent foramen ovale) ?Q21.12 - Patent foramen ovale (ICD-10) CKD (chronic kidney disease) stage 2, GFR 60-89 ml/min ?N18.2 - Chronic kidney disease, stage 2 (mild) (ICD-10) Ecchymosis ?R58 - Hemorrhage, not elsewhere classified (ICD-10) Subdural hemorrhage ?I62.00 - Nontraumatic subdural hemorrhage, unspecified (ICD-10) Seizures, post-traumatic ?R56.1 - Post traumatic seizures (ICD-10) Tachycardia ?R00.0 - Tachycardia, unspecified (ICD-10) Abdominal bloating ?R14.0 - Abdominal distension (gaseous) (ICD-10) Acute on chronic diastolic (congestive) heart failure ?I50.33 - Acute on chronic diastolic (congestive) heart failure (ICD-10) Cirrhosis of liver ?K74.60 - Unspecified cirrhosis of liver (ICD-10) Metabolic encephalopathy ?G93.41 - Metabolic encephalopathy (ICD-10) Edentulous ?K08.109 - Complete loss of teeth, unspecified cause, unspecified class (ICD-10) Mixed anxiety and depressive disorder ?F41.8 - Other specified anxiety disorders (ICD-10) Generalized muscle weakness ?M62.81 - Muscle weakness (generalized) (ICD-10) Primary insomnia ?F51.01 - Primary insomnia (ICD-10) Lipodystrophy ?E88.1 - Lipodystrophy, not elsewhere classified (ICD-10) Tinea corporis ?B35.4 - Tinea corporis (ICD-10) Vitamin B12 deficiency ?E53.8 - Deficiency of other specified B group vitamins (ICD-10) Folate deficiency ?E53.8 - Deficiency of other specified B group vitamins (ICD-10) Diffuse connective tissue disease ?M35.9 - Systemic involvement of connective tissue, unspecified (ICD-10) Uterine leiomyoma ?D25.9 - Leiomyoma of uterus, unspecified (ICD-10) Hemorrhage into subarachnoid space of neuraxis ?I60.9 - Nontraumatic subarachnoid hemorrhage, unspecified (ICD-10) Steatosis of liver ?K76.0 - Fatty (change of) liver, not elsewhere classified (ICD-10) Peripheral nerve disease ?G62.9 - Polyneuropathy, unspecified (ICD-10) Cyst, ovarian ?N83.209 - Unspecified ovarian cyst, unspecified side (ICD-10) Obstructive sleep apnea ?G47.33 - Obstructive sleep apnea (adult) (pediatric) (ICD-10) Migraine ?G43.909 - Migraine, unspecified, not intractable, without status migrainosus (ICD-10) Hypertension ?I10 - Essential (primary) hypertension (ICD-10) Occipital headache ?R51.9 - Headache, unspecified (ICD-10) GERD (gastroesophageal reflux disease) ?K21.9 - Gastro-esophageal reflux disease without esophagitis (ICD-10) Disturbance in sleep behavior ?G47.9 - Sleep disorder, unspecified (ICD-10) MDD (major depressive disorder) ?F32.9 - Major depressive disorder, single episode, unspecified (ICD-10) Alcohol abuse ?F10.10 - Alcohol abuse, uncomplicated (ICD-10) Mediastinal lymphadenopathy ?R59.0 - Localized enlarged lymph nodes (ICD-10) Sensory ganglionopathy ?G54.9 - Nerve root and plexus disorder, unspecified (ICD-10) Secundum ASD ?Q21.1 - Atrial septal defect (ICD-10) Right ventricular enlargement ?I51.7 - Cardiomegaly (ICD-10) 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 - Partial anomalous pulmonary venous connection (ICD-10) Menorrhagia ?N92.0 - Excessive and frequent menstruation with regular cycle (ICD-10) 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 - Dry beriberi (ICD-10) Tear film insufficiency ?H04.129 - Dry eye syndrome of unspecified lacrimal gland (ICD-10) Presbyopia ?H52.4 - Presbyopia (ICD-10) Bilateral myopia ?H52.13 - Myopia, bilateral (ICD-10) Hypothyroidism ?E03.9 - Hypothyroidism, unspecified (ICD-10) Dental decay ?K02.9 - Dental caries, unspecified (ICD-10) Fibroid ?D21.9 - Benign neoplasm of connective and other soft tissue, unspecified (ICD-10) Vitamin D deficiency ?E55.9 - Vitamin D deficiency, unspecified (ICD-10) Coccyx pain ?M53.3 - Sacrococcygeal disorders, not elsewhere classified (ICD-10) Essential hypertension ?I10 - Essential (primary) hypertension (ICD-10) Dysthymic disorder ?F34.1 - Dysthymic disorder (ICD-10) Generalized anxiety disorder ?F41.1 - Generalized anxiety disorder (ICD-10) Malnutrition ?E46 - Unspecified protein-calorie malnutrition (ICD-10) Myalgia and myositis Fibromyalgia ?M79.7 - Fibromyalgia (ICD-10) Nicotine dependence ?F17.200 - Nicotine dependence, unspecified, uncomplicated (ICD-10) Ataxia ?R27.0 - Ataxia, unspecified (ICD-10) Sarcoidosis of lung with sarcoidosis of lymph nodes ?D86.2 - Sarcoidosis of lung with sarcoidosis of lymph nodes (ICD-10) Peripheral neuropathy ?G62.9 - Polyneuropathy, unspecified (ICD-10) <Alisha Kelly MD - Last Filed: 03/26/25 16:44> Surgical History: Surgical History Hx of hernia repair ?Z98.890 - Other specified postprocedural states (ICD-10) ?Z87.19 - Personal history of other diseases of the digestive system (ICD-10) History of appendectomy ?Z90.49 - Acquired absence of other specified parts of digestive tract (ICD-10) <Alisha Kelly MD - Last Filed: 03/26/25 16:44> Social History: Social History Smoking Status: Current every day smoker What tobacco products do you use: cigarettes Do you use any of these nicotine containing products: None Second hand tobacco smoke exposure: Yes How often do you have a drink containing alcohol: never How often do you have six or more drinks on one occasion: Never AUDIT-C Alcohol total score: 0 Non-prescribed substance use: marijuana (any form) Non-prescribed substance use details: THC pills service: No <Alisha Kelly MD - Last Filed: 03/26/25 16:44> Exam Const: Vital Signs, click to edit/add: Vital Signs - 24 hr 03/24/25 20:39 03/24/25 20:59 03/24/25 21:15 Temperature 98.7 F Pulse Rate 78 Pulse Rate [Left P ulse Oximeter] 91 Respiratory Rate 24 Blood Pressure Blood Pressure [Ri ght Upper Arm] 136/80 Pulse Oximetry 96 97 95 Oxygen Delivery Me thod Room Air 03/24/25 21:17 03/24/25 21:30 03/24/25 21:32 Temperature Pulse Rate 75 79 77 Pulse Rate [Left P ulse Oximeter] Respiratory Rate 16 18 Blood Pressure 126/78 129/85 Blood Pressure [Ri ght Upper Arm] Pulse Oximetry 96 96 95 Oxygen Delivery Me thod 03/24/25 21:33 03/24/25 21:45 03/24/25 22:00 Temperature Pulse Rate 81 75 75 Pulse Rate [Left P ulse Oximeter] Respiratory Rate 14 15 Blood Pressure Blood Pressure [Ri ght Upper Arm] Pulse Oximetry 96 94 94 Oxygen Delivery Me thod 03/24/25 22:01 03/24/25 22:30 03/24/25 22:31 Temperature Pulse Rate 106 H 74 74 Pulse Rate [Left P ulse Oximeter] Respiratory Rate 16 16 Blood Pressure 119/77 120/83 Blood Pressure [Ri ght Upper Arm] Pulse Oximetry 89 97 96 Oxygen Delivery Me thod 03/24/25 22:32 03/24/25 22:45 Temperature Pulse Rate 74 74 Pulse Rate [Left P ulse Oximeter] Respiratory Rate 14 18 Blood Pressure Blood Pressure [Ri ght Upper Arm] Pulse Oximetry 96 96 Oxygen Delivery Me thod This 54-year-old female is alert, interactive, no apparent distress and very well kept but very thin nearly cachectic appearing. Face atraumatic, speaking in complete sentences. Does have occasional coarse, wet sounding cough but isn't producing sputum when I am in there. Neck slender, no masses. Some kyphosis, lungs are clear but have prolonged expiratory phase, no wheezing or crackles heard. CV regular rate and rhythm, no significant murmur, normal S1-S2. Abdomen is soft, nontender, non-distended, note no organomegaly or masses, bowel sounds are present. She has absolutely no lower extremity edema, muscle mass certainly seems diminished in her lower extremities. Skin without rash or jaundice. <Alisha Kelly MD - Last Filed: 03/26/25 16:44> Vital Signs, click to edit/add: Vital Signs - 24 hr 03/24/25 20:39 03/24/25 20:59 03/24/25 21:15 Temperature 98.7 F Pulse Rate 78 Pulse Rate [Left P ulse Oximeter] 91 Respiratory Rate 24 Blood Pressure Blood Pressure [Ri ght Upper Arm] 136/80 Pulse Oximetry 96 97 95 Oxygen Delivery Me thod Room Air 03/24/25 21:17 03/24/25 21:30 03/24/25 21:32 Temperature Pulse Rate 75 79 77 Pulse Rate [Left P ulse Oximeter] Respiratory Rate 16 18 Blood Pressure 126/78 129/85 Blood Pressure [Ri ght Upper Arm] Pulse Oximetry 96 96 95 Oxygen Delivery Me thod 03/24/25 21:33 03/24/25 21:45 03/24/25 22:00 Temperature Pulse Rate 81 75 75 Pulse Rate [Left P ulse Oximeter] Respiratory Rate 14 15 Blood Pressure Blood Pressure [Ri ght Upper Arm] Pulse Oximetry 96 94 94 Oxygen Delivery Me thod 03/24/25 22:01 03/24/25 22:30 03/24/25 22:31 Temperature Pulse Rate 106 H 74 74 Pulse Rate [Left P ulse Oximeter] Respiratory Rate 16 16 Blood Pressure 119/77 120/83 Blood Pressure [Ri ght Upper Arm] Pulse Oximetry 89 97 96 Oxygen Delivery Me thod 03/24/25 22:32 03/24/25 22:45 Temperature Pulse Rate 74 74 Pulse Rate [Left P ulse Oximeter] Respiratory Rate 14 18 Blood Pressure Blood Pressure [Ri ght Upper Arm] Pulse Oximetry 96 96 Oxygen Delivery Me thod <Simi Bragg MD - Last Filed: 03/24/25 23:39> Documenting provider has reviewed patient's vital signs: yes <Alisha Kelly MD - Last Filed: 03/26/25 16:44> Course Course ED Course: This stably presenting 54yo female is coming in with cough of months duration but with chest heaviness bilaterally mostly with breathing. She reports that her pulse oximeter was somewhat low at home; we have normal oximetry here now but will continue to monitor continuously. We will also monitor on cardiac monitoring for arrhythmia, any change in baseline EKG (doubt ischemia at this time but certainly is on the differential). She states that she has no lung disease but wonder if this has been completely studied, she has long history of smoking that is ongoing. She certainly could have respiratory issues including infection, copd, chf/fluid overload, hopefully not recurrent sarcoid disease. Will start the two view chest x-ray besides monitoring, will get full complement of labs including proBNP, troponin, D-dimer. If D-dimer is elevated, would certainly recommend proceeding with chest CT PE protocol. Right now she is quite stable. <Alisha Kelly MD - Last Filed: 03/26/25 16:44> Reevaluation(s) Time of Reevaluation #1: 22:12 <Alisha Kelly MD - Last Filed: 03/26/25 16:44> Reevaluation #1: Reviewed with patient that her chest x-ray is not showing any definitive pathology that is overtly concerning. We are going to do a chest CT in her, noncontrast, to completely rule out infection. It sounds as if this is her main concern. Reviewed with her that her white count is slightly low, this may be normal for her given her history, I do not have any up-to-date values to compare. Her platelet counts are at 75,000 but she states her platelets typically run low. We do not know the actual values where she is. She is not experiencing any bleeding at this time. Outside of awaiting her troponin and proBNP, her labs are quite reassuring on the other labs. C reactive protein is normal, D-dimer is normal. She understands that if the chest CT is reassuring, we will discharge her to home to follow-up further outpatient with her care team. This is not something that we can easily intervene on here, we do not have the specialties or the access to all of her records to be able to delve into this further. We certainly can help rule out an acute bacterial process such as a pneumonia and would treat but otherwise planned discharge to home. I will be signing her out to the nighttime partner. <Alisha Kelly MD - Last Filed: 03/26/25 16:44> Time of Reevaluation #2: 23:37 <Simi Bragg MD - Last Filed: 03/24/25 23:39> Reevaluation #2: Dr. Latrell Myrick inherited care of patient from outgoing evening partner. CT is normal. There are no signs of heart failure, infectious process, infiltrate or other abnormality. This is great news. Patient remains minimally symptomatic, we reviewed the findings and she was grateful to hear this as well. I do think that based on her pulmonary exam, she might respond to steroids. We discussed use of albuterol. She asks about a sensation of racing heart when using albuterol. I let her know unfortunately, this is common but the racing heart symptoms will be short lived and the bronchodilator affects tend to last a little longer and will be helpful in clearing out this cough, use the albuterol 2 puffs 2 times a day for the next 5 days in addition to a 5 day 20 mg once daily prednisone burst. She elects to start this in the morning and I agree as it certainly could cause some insomnia. She will let her primary care care team know about what tests were done here and what the results were so that they can coordinate future flares and care more easily. She verbalizes understanding and agreement of plan <Simi Bragg MD - Last Filed: 03/24/25 23:39> Vital Signs Vital signs: Initial Vital Signs Temperature 98.7 F 03/24/25 20:39 Temperature Source Temporal Artery Scan 03/24/25 20:39 Pulse Rate 91 03/24/25 20:39 Respiratory Rate 24 03/24/25 20:39 Blood Pressure 136/80 03/24/25 20:39 Blood Pressure Mean 98 03/24/25 20:39 Blood Pressure Position Sitting 03/24/25 20:39 Pulse Oximetry 96 03/24/25 20:39 Oxygen Delivery Method Room Air 03/24/25 20:39 Vital Signs Temperature 98.7 F 03/24/25 20:39 Pulse Rate 91 03/24/25 20:39 Respiratory Rate 24 03/24/25 20:39 Blood Pressure 136/80 03/24/25 20:39 Pulse Oximetry 96 03/24/25 20:39 Oxygen Delivery Method Room Air 03/24/25 20:39 Temperature 98.7 F 03/24/25 20:39 Pulse Rate 74 03/24/25 22:45 Respiratory Rate 18 03/24/25 22:45 Blood Pressure 120/83 03/24/25 22:31 Pulse Oximetry 96 03/24/25 22:45 Oxygen Delivery Method Room Air 03/24/25 20:39 <Alisha Kelly MD - Last Filed: 03/26/25 16:44> Initial Vital Signs Temperature 98.7 F 03/24/25 20:39 Temperature Source Temporal Artery Scan 03/24/25 20:39 Pulse Rate 91 03/24/25 20:39 Respiratory Rate 24 03/24/25 20:39 Blood Pressure 136/80 03/24/25 20:39 Blood Pressure Mean 98 03/24/25 20:39 Blood Pressure Position Sitting 03/24/25 20:39 Pulse Oximetry 96 03/24/25 20:39 Oxygen Delivery Method Room Air 03/24/25 20:39 Vital Signs Temperature 98.7 F 03/24/25 20:39 Pulse Rate 91 03/24/25 20:39 Respiratory Rate 24 03/24/25 20:39 Blood Pressure 136/80 03/24/25 20:39 Pulse Oximetry 96 03/24/25 20:39 Oxygen Delivery Method Room Air 03/24/25 20:39 Temperature 98.7 F 03/24/25 20:39 Pulse Rate 74 03/24/25 22:45 Respiratory Rate 18 03/24/25 22:45 Blood Pressure 120/83 03/24/25 22:31 Pulse Oximetry 96 03/24/25 22:45 Oxygen Delivery Method Room Air 03/24/25 20:39 <Simi Bragg MD - Last Filed: 03/24/25 23:39> Medical Decision Making Lab Data Lab results reviewed: Yes I reviewed the patient's lab results <Alisha Kelly MD - Last Filed: 03/26/25 16:44> Lab results narrative: Mildly low platelets, suspect this is from prior alcohol use. Electrolytes and inflammatory markers reassuring. The BD reassuring. <Simi Bragg MD - Last Filed: 03/24/25 23:39> Labs: Lab Results 03/24/25 Range/Units 21:00 WBC 3.79 L (4.50-11.00) K/uL RBC 5.13 (4.00-5.20) m/uL Hgb 13.5 (12.0-16.0) gm/dL Hct 41.6 (33.0-51.0) % MCV 81 (80-100) fL MCH 26 (26-34) pg MCHC 33 (32-36) gm/dL RDW Coeff of Susanna 18.9 H (11.5-15.5) % Plt Count 75 L (140-440) K/uL Neut % (Auto) 61.9 (42.0-72.0) % Lymph % (Auto) 28.0 (20-44) % [place] % (Auto) 6.9 (0.0-11.0) % Eos % (Auto) 2.9 (0.0-7.0) % Baso % (Auto) 0.3 (0.0-3.0) % Neut # (Auto) 2.30 (1.7-7.0) K/uL Lymph # (Auto) 1.10 (0.90-2.90) K/uL [place] # (Auto) 0.30 (0.00-0.90) K/UL Eos # (Auto) 0.10 (0.00-0.50) K/uL Baso # (Auto) 0.00 (0.00-0.30) K/uL Abs Immat Gran (auto) 0.00 (0.00-0.30) K/uL Imm/Tot Granulo (auto) 0.0 % Diff Slide Review Acceptable Review (Acceptable) INR 1.04 (0.91-1.10) APTT 33 (23-33) Seconds D-Dimer Quant (PE/DVT) 0.27 (0.00-0.50) ug/ml VBG pH 7.384 (7.32-7.43) VBG pCO2 44 (40-50) mmHG VBG pO2 38.0 (25-47) mmHG VBG HCO3 26 (21-28) mmol/L Sodium 143 (135-149) mmol/L Potassium 4.0 (3.6-5.1) mmol/L Chloride 112 (96-114) mmol/L Carbon Dioxide 25 (20-32) mmol/L Anion Gap 6 L (7-15) mEq/L BUN 11 (7-30) mg/dL Creatinine 0.8 (0.5-1.5) mg/dL Estimated Creat Clear 64.86 Estimated GFR 87 ml/min Glucose 112 (60-115) mg/dL Lactate 1.3 (0.5-1.9) mmol/L Calcium 9.1 (8.4-10.6) mg/dL Total Bilirubin 0.8 (0.1-1.5) mg/dL Direct Bilirubin 0.4 (0.0-0.5) mg/dL AST 47 H (12-35) U/L ALT 21 (4-35) U/L Alkaline Phosphatase 51 (40-150) U/L Troponin I < 0.01 (0.01-0.04) ng/mL C-Reactive Protein < 0.5 L (0.5-1.0) mg/dL NT-Pro-B Natriuret Pep 104 (See Note) pg/mL Total Protein 6.6 (6.0-8.3) g/dL Albumin 3.8 (3.3-5.0) g/dL <Alisha Kelly MD - Last Filed: 03/26/25 16:44> Lab Results 03/24/25 Range/Units 21:00 WBC 3.79 L (4.50-11.00) K/uL RBC 5.13 (4.00-5.20) m/uL Hgb 13.5 (12.0-16.0) gm/dL Hct 41.6 (33.0-51.0) % MCV 81 (80-100) fL MCH 26 (26-34) pg MCHC 33 (32-36) gm/dL RDW Coeff of Susanna 18.9 H (11.5-15.5) % Plt Count 75 L (140-440) K/uL Neut % (Auto) 61.9 (42.0-72.0) % Lymph % (Auto) 28.0 (20-44) % [place] % (Auto) 6.9 (0.0-11.0) % Eos % (Auto) 2.9 (0.0-7.0) % Baso % (Auto) 0.3 (0.0-3.0) % Neut # (Auto) 2.30 (1.7-7.0) K/uL Lymph # (Auto) 1.10 (0.90-2.90) K/uL [place] # (Auto) 0.30 (0.00-0.90) K/UL Eos # (Auto) 0.10 (0.00-0.50) K/uL Baso # (Auto) 0.00 (0.00-0.30) K/uL Abs Immat Gran (auto) 0.00 (0.00-0.30) K/uL Imm/Tot Granulo (auto) 0.0 % Diff Slide Review Acceptable Review (Acceptable) INR 1.04 (0.91-1.10) APTT 33 (23-33) Seconds D-Dimer Quant (PE/DVT) 0.27 (0.00-0.50) ug/ml VBG pH 7.384 (7.32-7.43) VBG pCO2 44 (40-50) mmHG VBG pO2 38.0 (25-47) mmHG VBG HCO3 26 (21-28) mmol/L Sodium 143 (135-149) mmol/L Potassium 4.0 (3.6-5.1) mmol/L Chloride 112 (96-114) mmol/L Carbon Dioxide 25 (20-32) mmol/L Anion Gap 6 L (7-15) mEq/L BUN 11 (7-30) mg/dL Creatinine 0.8 (0.5-1.5) mg/dL Estimated Creat Clear 64.86 Estimated GFR 87 ml/min Glucose 112 (60-115) mg/dL Lactate 1.3 (0.5-1.9) mmol/L Calcium 9.1 (8.4-10.6) mg/dL Total Bilirubin 0.8 (0.1-1.5) mg/dL Direct Bilirubin 0.4 (0.0-0.5) mg/dL AST 47 H (12-35) U/L ALT 21 (4-35) U/L Alkaline Phosphatase 51 (40-150) U/L Troponin I < 0.01 (0.01-0.04) ng/mL C-Reactive Protein < 0.5 L (0.5-1.0) mg/dL NT-Pro-B Natriuret Pep 104 (See Note) pg/mL Total Protein 6.6 (6.0-8.3) g/dL Albumin 3.8 (3.3-5.0) g/dL <Simi Bragg MD - Last Filed: 03/24/25 23:39> Imaging Data Chest x-ray: Attestation: I have reviewed the pertinent imaging results. <Alisha Kelly MD - Last Filed: 03/26/25 16:44> Radiologist's impression: Patient: RONALD RICE SCHERPING Facility:?[facility] Patient ID:?[id number] Site Patient ID:?[id number]. Site :?[id number] Study:?XRay-Chest 2V-03/24/2025 9:10:22 PM Ordering Physician:Parminder Brito Final Report: Indication: Chronic cough. Smoking history. Technique: Two views of the chest. Comparison: Chest x-ray 11/09/2020. Findings/Impression: The heart is not abnormally enlarged. Mild pulmonary vascular congestion. Increased bilateral interstitial markings may reflect sequelae of infectious/inflammatory process. Left lung base nodular opacification favored to represent nipple shadowing. No pleural effusion or pneumothorax. Mild chronic appearing lower thoracic superior endplate compression deformity. Dictated by Raul Sandoval MD @ 03/24/2025 9:15:01 PM (Electronic Signature) <Alisha Kelly MD - Last Filed: 03/26/25 16:44> CT scan - chest: Attestation: I have reviewed the pertinent imaging results. <Simi Bragg MD - Last Filed: 03/24/25 23:39> My impression: Normal chest CT. Thankfully there are no signs of infiltrate, congestive heart failure, mass or other abnormality. <Simi Bragg MD - Last Filed: 03/24/25 23:39> Radiologist's impression: IMPRESSION: Unremarkable chest CT. No acute findings. Please note that all CT scans at this facility use dose modulation, iterative reconstruction, and/or weight-based dosing when appropriate to reduce radiation dose to as low as reasonably achievable. Dictated by Alvarez Guerra MD @ 03/24/2025 10:41:10 PM <Simi Bragg MD - Last Filed: 03/24/25 23:39> ECG Data Attestation: I personally reviewed and interpreted this ECG as follows: (Normal sinus rhythm, 80 beats per minute. No active ischemia or infarction noted.) <Alisha Kelly MD - Last Filed: 03/26/25 16:44> Prior ECG tracings: available for review <Alisha Kelly MD - Last Filed: 03/26/25 16:44> Discharge Plan Discharge Clinical Impression: Cough <Alisha Kelly MD - Last Filed: 03/26/25 16:44> Patient Disposition: Home, Self-Care <Alisha Kelly MD - Last Filed: 03/26/25 16:44> Condition: Stable <Alisha Kelly MD - Last Filed: 03/26/25 16:44> Additional Instructions: As we discussed, your workup looks excellent today. There are no signs of heart failure based on your chest x-ray, chest CT or your blood work. There are no signs of any new damage to your heart. There were no infections or signs of a new inflammatory condition. This is all great news. I think that is reasonable for us to do a trial of prednisone to see if the inflammation in your airway response to this. As we discussed, I do not like to start that at night if we do not need to as it can cause some insomnia. I have given you a 5 day course of prednisone tablets to take once daily for total of 5 days. The default settings from the vending machine prescription will give you 10 tablets, please remember that you only need 5. Because of your petite size, I only want you taking 1 tablet per day. It is okay for you to save the other 5 tablets for a future flare. It is important that you contact your primary care team and let them know that you are evaluated and that we did blood work, chest x-ray and a CT scan of the chest. These were thankfully all normal. Let them know if the prednisone has been helpful so that we have this information for deciding how to treat future flares. I do want you to continue using the albuterol but you are correct it will cause a little bit of chest tightness and racing heart temporarily. Thankfully the bronchodilator effects last longer and will help you clear out the mucus. Use 2 puffs, spaced to minutes apart in the morning and about an hour before bedtime for at least the next 5 days to help clear out the carotid and help your lungs heal more quickly. If you have any severe worsening, high fever or other alarming symptoms, you should return to the emergency department. <Alisha Kelly MD - Last Filed: 03/26/25 16:44> Activity Level: Activity as Tolerated <Alisha Kelly MD - Last Filed: 03/26/25 16:44> Activity as Tolerated <Simi Bragg MD - Last Filed: 03/24/25 23:39> Discharge Diet: Regular <Alisha Kelly MD - Last Filed: 03/26/25 16:44> Regular <Simi Bragg MD - Last Filed: 03/24/25 23:39> Prescriptions: No Action levetiracetam [Keppra] 250 mg tablet 250 mg PO BID Qty: 60 0RF Rx Instructions: Take this twice a day with your 1000 mg tablets for a total of 1250 mg twice daily. omeprazole 40 mg capsule,delayed release(DR/EC) 40 mg PO DAILY magnesium oxide 400 mg (241.3 mg magnesium) tablet 400 mg PO DAILY levothyroxine 50 mcg tablet 50 mcg .ROUTE .COMPLEX Rx Instructions: as prescribed pregabalin 50 mg capsule 50 mg PO Q12H levetiracetam 1,000 mg tablet 1,000 mg PO Q12H Xifaxan 550 mg tablet 550 mg PO BID melatonin 3 mg capsule 3 mg PO HS PRN (DME) THC See Rx Instructions .ROUTE .MEDSUPPLY Rx Instructions: as prescribed Repatha Syringe folic acid 400 mcg tablet 0.4 mg PO DAILY hydroxyzine HCl 25 mg tablet 25 - 50 mg PO Q8H PRN (Reason: anxiety) Repatha SureClick 140 mg/mL pen injector 140 mg subcut .Q 14 days psyllium Powder 1 tbsp PO QAM Rx Instructions: mix into at least 8 oz of water or juice before administering midodrine 10 mg tablet 10 mg PO DAILY ferrous gluconate 324 mg (38 mg iron) tablet 324 mg PO DAILY cholecalciferol (vitamin D3) [Vitamin D3] 50 mcg (2,000 unit) tablet 50 mcg PO DAILY thiamine mononitrate (vit B1) 100 mg tablet 100 mg PO DAILY <Alisha Kelly MD - Last Filed: 03/26/25 16:44> Follow Up/Referrals: Rio Jaquez MD [Referring, Family Practice] <Alisha Kelly MD - Last Filed: 03/26/25 16:44> [facility] <Alisha Kelly MD - Last Filed: 03/26/25 16:44> Procedures ABG Interpretation ABG Results: 03/24/25 21:00 VBG pH 7.384 VBG pCO2 44 VBG pO2 38.0 VBG HCO3 26 <Alisha Kelly MD - Last Filed: 03/26/25 16:44> 03/24/25 21:00 VBG pH 7.384 VBG pCO2 44 VBG pO2 38.0 VBG HCO3 26 <Simi Bragg MD - Last Filed: 03/24/25 23:39>
--- NOTE | 2025-03-24 20:59 | CRLHL7_ITS ---
For Patients: As a result of the Century Cures Act, medical imaging exams and procedure reports are released immediately into your electronic medical record. You may view this report before your referring provider. If you have questions, please contact your health care provider. Indication: Chronic cough. Smoking history. Technique: Two views of the chest. Comparison: Chest x-ray 11/09/2020. Findings/Impression: The heart is not abnormally enlarged. Mild pulmonary vascular congestion. Increased bilateral interstitial markings may reflect sequelae of infectious/inflammatory process. Left lung base nodular opacification favored to represent nipple shadowing. No pleural effusion or pneumothorax. Mild chronic appearing lower thoracic superior endplate compression deformity. Dictated by Raul Sandoval MD @ 03/24/2025 9:15:01 PM (Electronically Signed)
[2025-03-24 21:22] LABS: HCO3 VBG 26 mmol/L (21-28); Lactate* 1.3 mmol/L (0.5-1.9); PCO2 VBG 44 mmHG (40-50); PO2 VBG 38.0 mmHG (25-47); pH VBG 7.384 (7.32-7.43)
[2025-03-24 21:23] LABS: Hematocrit 41.6 % (33.0-51.0); Hemoglobin* 13.5 gm/dL (12.0-16.0); Immature Granulocytes Abs Auto 0.00 K/uL (0.00-0.30); Immature Granulocytes Pct Auto 0.0 %; Mean Corpuscular HGB Conc 33 gm/dL (32-36); Mean Corpuscular Hemoglobin 26 pg (26-34); Mean Corpuscular Volume 81 fL (80-100); RDW Coefficient of Variation % 18.9 % (11.5-15.5); Red Blood Count 5.13 m/uL (4.00-5.20); White Blood Count* 3.79 K/uL (4.50-11.00)
[2025-03-24 21:54] LABS: Albumin* 3.8 g/dL (3.3-5.0)
[2025-03-24 21:55] LABS: Chloride* 112 mmol/L (96-114); Potassium* 4.0 mmol/L (3.6-5.1); Sodium* 143 mmol/L (135-149)
[2025-03-24 21:57] LABS: Blood Urea Nitrogen* 11 mg/dL (7-30); Creatinine* 0.8 mg/dL (0.5-1.5); Est. Creatinine Clearance* 64.86; Estimated Glomerular Filt Rate 87 ml/min; INR 1.04 (0.91-1.10); Prothrombin Time 14.4 Seconds
[2025-03-24 21:58] LABS: Alanine Aminotransferase* 21 U/L (4-35); Alkaline Phosphatase* 51 U/L (40-150); Anion Gap 6 mEq/L (7-15); Aspartate Amino Transferase* 47 U/L (12-35); Bilirubin Direct* 0.4 mg/dL (0.0-0.5); Bilirubin Total* 0.8 mg/dL (0.1-1.5); Calcium* 9.1 mg/dL (8.4-10.6); Carbon Dioxide* 25 mmol/L (20-32); Glucose* 112 mg/dL (60-115); Total Protein* 6.6 g/dL (6.0-8.3)
[2025-03-24 22:00] LABS: D Dimer Quantitative* 0.27 ug/ml (0.00-0.50); Lymphocytes Absolute Auto 1.10 K/uL (0.90-2.90); Slide Review Reflex Yes
[2025-03-24 22:01] LABS: Slide Review Acceptable Review (Acceptable)
--- NOTE | 2025-03-24 22:05 | CRLHL7_ITS ---
For Patients: As a result of the Century Cures Act, medical imaging exams and procedure reports are released immediately into your electronic medical record. You may view this report before your referring provider. If you have questions, please contact your health care provider. INDICATION: COUGH 5 MONTHS, CHEST TIGHTNESS. TECHNIQUE: CT chest without contrast. COMPARISON: None. FINDINGS: Lungs and pleura: No suspicious nodules or infiltrates. No pleural effusions, pleural thickening, or pneumothorax. Heart and vasculature: Heart size is normal. Thoracic aorta and pulmonary artery are normal in caliber. Lymph nodes/mediastinum: No mediastinal, hilar, or axillary adenopathy. Chest wall: No masses. Upper abdomen: No acute or significant findings. Bones: Unremarkable for age. IMPRESSION: Unremarkable chest CT. No acute findings. Please note that all CT scans at this facility use dose modulation, iterative reconstruction, and/or weight-based dosing when appropriate to reduce radiation dose to as low as reasonably achievable. Dictated by Alvarez Guerra MD @ 03/24/2025 10:41:10 PM (Electronically Signed)
[2025-03-24 22:18] LABS: NT Pro B Type NatriureticPept* 104 pg/mL (See Note)
== END 2025-03-24 23:45 | disposition home or self-care (01) ==
PROVIDERS: Family Medicine; Emergency Provider Family Medicine
DX: R05.9 Cough, unspecified (principal)
CPT/HCPCS: 36415; 71046; 71250; 80053; 82248; 82803; 83605; 83880; 84484; 85025; 85379; 85610; 85730; 86140; 93005; 94761; 99284; 99285

== ENCOUNTER 2025-06-08 21:23 | Emergency (ER) | payer BC, MEDICARE, SELFPAY ==
--- OUTSIDE RECORDS SUMMARY | 2021-01-03 19:00 | XMS_ITS | Continuity of Care Document ---
Author Organization [facility] Address [address] [address] [place] [address] Phone Care Team Providers Care Aerial Installer Name Role Phone Arnold Shipman MD Unavailable [...] Encounter [facility], [address] [address], [place], [place], [address], [place] tel:[phone] [facility] Esophageal varices without bleeding, unspecified esophageal varices type 1 Umberto Barrett. [address] [facility], [facility] [address], [place], [place], [address] , [place]. tel:[phone] Referring Provider: Arnold Shipman MD, [address] [facility] [address], [place], [address] . tel:[phone] In Hosp-da E&m Mod Severity [facility], [address] [address], [place], [place], [address], [place] [phone] [facility] No Information 1 Delilah Alexander. [address] [facility], [address], [id number] , [place]. tel:[phone] Referring Provider: Flaquita Mazariegos MD, [address], [address] . tel:[phone] In Hosp-da E&m Mod Severity [facility], [address] [address], [place], [place], [address], [place] [phone] [facility] No Information 1 Yamil Smith. [address] [facility], [facility] [address], [place], [place], [address] , [place]. tel:[phone] Referring Provider: Rio Jaquez MD, [address] [place] [address], [address]. tel:[phone] [facility], [address] [address], [place], [place], [address], [place] [phone] [facility] Gastritis W/o BleedEsoph Stricture/schat zki RingEsoph Stricture/schat zki RingGastritis W/o Bleed 201 0 Vitaly Gamboa. [address] [facility], [address], [place], [place], [address] , [place]. [phone] Family History Family Member Type Diagnosis Age At Onset No Information Payers Payer name Insurance type Covered libertarian ID Authoriza tion(s) No Information Social History [...]
--- OUTSIDE RECORDS SUMMARY | 2021-01-03 19:00 | XMS_ITS | Continuity of Care Document ---
Author Organization [facility] Address [address] [address] [place] [address] Phone Care Team Providers Care Gold Reclaimer Name Role Phone Arnold Shipman MD Unavailable [...] Encounter [facility], [address] [address], [place], [place], [address], [place] tel:[phone] [facility] Esophageal varices without bleeding, unspecified esophageal varices type 1 Umberto Barrett. [address] [facility], [facility] [address], [place], [place], [address] , [place]. tel:[phone] Referring Provider: Arnold Shipman MD, [address] [facility] [address], [place], [address] . tel:[phone] In Hosp-da E&m Mod Severity [facility], [address] [address], [place], [place], [address], [place] [phone] [facility] No Information 1 Delilah Alexander. [address] [facility], [address], [id number] , [place]. tel:[phone] Referring Provider: Flaquita Mazariegos MD, [address], [address] . tel:[phone] In Hosp-da E&m Mod Severity [facility], [address] [address], [place], [place], [address], [place] [phone] [facility] No Information 1 Yamil Smith. [address] [facility], [facility] [address], [place], [place], [address] , [place]. tel:[phone] Referring Provider: Rio Jaquez MD, [address] [place] [address], [address]. tel:[phone] [facility], [address] [address], [place], [place], [address], [place] [phone] [facility] Gastritis W/o BleedEsoph Stricture/schat zki RingEsoph Stricture/schat zki RingGastritis W/o Bleed 201 0 Vitaly Gamboa. [address] [facility], [address], [place], [place], [address] , [place]. [phone] Family History Family Member Type Diagnosis Age At Onset No Information Payers Payer name Insurance type Covered alliance party ID Authoriza tion(s) No Information Social [...]
--- OUTSIDE RECORDS SUMMARY | 2025-04-25 12:45 | XMS_ITS | Encounter Summary ---
Author Organization [facility] Address [address] [place] [address] Care Team Providers Care Reactor Kettle Operator Name Role Phone Barry Kilpatrick MD Unavailable Michelle Henderson RN Unavailable [phone] Rio Jaquez MD Unavailable [phone] Jemima Jaramillo MD Unavailable Unavai Kelley Bautista RN Unavailable [phone] Sydnee Saleem MD Unavailable [phone] Karlene Moya MD Unavailable [phone] Wilbert Quintero OD Unavailable [phone] Rod Gauthier DPM Unavailable [phone] Jan Mahmood MD Unavailable [phone] Brnadt Quintana MD Unavailable Jan Mahmood MD Unavailable [phone] Dom Eason MD Unavailable [phone] Jaimie Vernon RN Unavailable Unavailable Marquise Hanley MD Unavailable [phone] Vlad Ramey MD Unavailable [phone] Joesph Crowe MD Unavailable Michelle Padilla RN Unavailable Unavaila ble Marquise Hanley MD Unavailable [phone] Wagner Oliver MD Unavailable [phone] Joesph Crowe MD Unavailable Adonay Haq MD Unavailable Ruth Leyva DPM, Podiatry /Foot and Ankle Surgery Unavailable Omar Carmona MD Primary Care Provider Jignesh Mathias MD Unavailable Omar Carmona MD Unavailable Jason Alvares MD Unavailable Jignesh Mathias MD Unavailable Ayad Lopez PhD LP Unavailable Gavi Nieto PA-C Unavailable [phone] Reason for Visit * Reason Comments Pain Toenail Encounter Details Date Type Department Care Team (Late st Contact Info) Description 04/25/2025 12:45 PM CDT Office Visit [facility] Podiatry [address] [facility] [address] [place], [place] [phone] Ruth Leyva DPM, Podiatry/Foot and Ankle Surgery [address] [facility] [address] [place], [place] [phone] Foot pain, bilateral (Primary Dx); Hammertoe of left foot; Callus of foot; Onychomycosis of toenail; Idiopathic peripheral neuropathy; Congenital bilateral pes cavus Social History Tobacco Use Types Packs/Day Years Used Date Smoking Tobacco: Every Day Cigarettes 0.5 42.8 Started: 08/09/1982 Other Smokeless Tobacco: Never Comments:1/2 PPD Alcohol Use Standard Drinks/Week Comments Not Currently 0 (1 standard drink = 0.6 oz pur e alcohol) 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 Social Connection and Isolation Panel Answer Date Recorded In a typical week, [...] any clubs o r organizations such as islam groups, unions, fraternal or athletic groups, or [...] PHQ-2 Answer Date Recorded PHQ-2 Score 2 04/11/2025 [facility] - Occupational [...] Assigned at Female 09/12/2020 12:05 PM HEALTH ADMINISTRATION TEACHER Legal Sex Female 3:26 AM HEALTH ADMINISTRATION TEACHER Gender Identity Female 09/12/2020 12:05 PM HEALTH ADMINISTRATION TEACHER Sexual Orientation Straight 12/19/2021 10 :44 AM CDT Occupation Industry Job Start Date Job End Date on disability for FMS Not on file Not on file Not on file disabled Not on file Not on file Not on file documented as of this encounter Patient Instructions * Patient Instructions* Ruth Leyva DPM, Podiatry/Foot and Ankle Surgery - 04/25/2025 12:45 PM CDT Thank you for choosing [facility] Podiatry / Foot & Ankle Surgery! DR LEYVA'S CLINIC: [facility] [address] [place] [address] (, Wed, Thurs AM) [facility] [address] [facility] [place] [address] (Every Wednesday) TRIAGE LINE: [phone] APPOINTMENTS: [phone] RADIOLOGY: SET UP SURGERY: [phone] PHYSICAL THERAPY: [phone] BILLING QUESTIONS: [phone] FAX: [phone] Follow up: as needed. Superfeet inserts the green color. Or power step inserts. Can get these at [employer], [employer] or online. I am splinting her AVS it is at the sleep 1 CALLUS / CORNS / IPKs When there is excessive friction or pressure on the skin, the body responds by making the skin thicker to protect the deeper structures from becoming exposed. While this works well to protect the deeper structures, the thickened skin can increase pressure and pain. CALLUS: Flat, diffuse thickening are simple calluses and they are usually caused by friction. Oftenthese are the result of rubbing on a shoe or going barefoot. CORNS: Calluses with a central core between the toes are called corns. These result from prominent joints on adjacent toes rubbing together. Theses are a symptom of bone malalignment and will always recur unless the underlying bones are addressed surgically. IPKs: Calluses with a central core on the ball of the foot are usually IPKs (intractable plantar keratosis). These are caused by excessive pressure from the metatarsals, the bones that make up the ball of the foot. Often one of these bones is too long or too prominent. Again, these will always recur unless the underlying bone issue is addressed. There is no cure for these. They will either go away by themselves, recur, or more could develop. ROUTINE MAINTENANCE 1. File them down with a pumice stone or callus file a couple times a week. 2. An electric callus removing device. Amope Pedi Perfect Electronic Pedicure Foot File and Callus Remover can be a good option. 3. Lotion can be applied to soften the callus. A urea based cream such as Kersal or Vanicream or thicker cream with longoria butter are good options. 4. Toe spacers or toe covers can be used for corns, gel pads can be used for other lesions on the bottom of the foot. If there is a surgical pathology noted, such as a prominent bone, often this needs to be addressed surgically to minimize recurrence. However, sometimes the lesion simply migrates to another spot after surgery, so it is not a guaranteed cure. If you come back to clinic for treatment, insurance does not cover it, and you would be billed. This charge could range from $100 - $227 NAIL FUNGUS / ONYCHOMYCOSIS Nail fungus is not a hygiene problem and will likely not lead to significant medical problems. The nails may get thick causing pain and possibly local skin infection. Treatments include debridement (trimming), oral antifungals, topical antifungals and complete removal of the nail. Most fungal nailsare not treated. Topicals such as tea tree oil can be helpful for surface fungus and may, at best, limit progression. Over the counter creams (such as Lamisil) can also be used however, their effectiveness is also quite low. Topical treatment with Pen lac is expensive and often not covered by insurance. Pen lac hasan approximate 8% success rate. Topical therapy recommendations is to apply twice a day for at least 3-4 months as it takes 9 months for new nail to grow out. Experts suggest soaking your feet for 15 to 20 minutes in a mixture of 1 cup vinegar to 4 cups warmwater. Be sure to rinse well and pat your feet dry when you're done. You can soak your feet like this daily. But if your skin becomes irritated, try soaking only two to three times a week. Vicks VapoRub, as with vinegar, there have been no controlled clinical trials to assess the effectiveness of Vicks VapoRub on nail fungus, but there have been numerous anecdotal reports that it works. There's no consensus on how often to apply this product, so check with your doctor before using it on your nails. Oral therapies include Sporanox and Lamisil. Oral therapies are also expensive and not very effective. Side effects such as liver disease are the main concern. Return of fungus is common even if the treatment worked. Other Tips: - Penlac nail medication apply daily x 4 months; remove old slovenian first day of each week - Antifungal cream/powder (Zeasorb) - apply daily to feet and shoes x 2 months - Clean shoes with Lysol or in washing machine every few weeks - Rotate shoe gear; give them 24 hours to dry out between days wearing them - Clean pair of socks in morning, clean pair in afternoon if your feet sweat - Shower shoes used in public showers/pools NEURITIS Neuritis is more of a symptom rather than a condition. Basically it's inflammation of a peripheral nerve, often accompanied by degenerative changes in the nervous tissue. The effects are usually a tingling, burning, mhe-kia-caoejq sensation, or even a loss of sensation much like a peripheral neuropathy. This can also be due to back injury or arthritis. The treatment can be directed at the underlying cause. There are many possible causes. The cause can be mechanical by injury or pressure to the nerve or it can be vascular by occlusion of the vesselsthat supply blood to the nerve. It can be infectious and caused by invading microorganisms, or metabolic by a deficiencies in vitamins or pernicious anemia. Treatment is normally targeted at the symptoms for pain. Using lidocaine cream to numb the area, physical therapy, compounding cream, or injection. Also talking with your primary care about possible medication directed at nerves such as lyrica, neurontin, gabapentin, amytriptylline, or duloxitine. documented in this encounter Progress Notes * Ruth Leyva DPM, Podiatry/Foot and Ankle Surgery - 04/25/2025 12:45 PM CDT Podiatry / Foot and Ankle Surgery Progress Note April 25, 2025 Subject: Patient was seen for issues with her right great toenail as well as pain to the bottom of the left foot. She states it feels like it is walking on a rock. Can be 6 out of 10. Worse with increased pressure or no padding under the foot. Denies specific injury. Wondering what can be done for her darkened toenail and pain to the bottom of the left foot. Objective: Vitals: LMP 10/10/2014 (Approximate) BMI= There is no height or weight on file to calculate BMI. A1C: 4.7 (10/13/2023) General: Patient is alert and orientated. NAD. Dermatologic: Localized hypkeratotic lesion to the plantar aspect of the left 3rd and 5th metatarsal heads. No open lesions or signs of acute infection noted. Prominent metatarsal heads plantarly on the left foot. Vascular: DP & PT pulses are intact & regular bilaterally. No significant edema or varicosities noted. CFT and skin temperature is normal to both lower extremities. Neurologic: Lower extremity sensation is diminished to feet.. Musculoskeletal: Patient is ambulatory without assistive device or brace. Increased arch height bilaterally. Semirigid contractures of toes 2 through 4 bilaterally. ASSESSMENT: Foot pain, bilateral Hammertoe of left foot Callus of foot Onychomycosis of toenail Idiopathic peripheral neuropathy Congenital bilateral pes cavus Medical Decision Making/Plan: Reviewed patient's chart in [facility]. Discussed causes of keratomas. Theyare due to areas of increase friction. Hammertoes can create these as they put more pressure to themetatarsal head. Discussed treatments such as using foot file, pumice stone, metatarsal pads, orthotics, and not walking barefoot. We discussed the cost structure of callus care if they were to come back and have it treated in theclinic if insurance does not cover it and explained that they would be billed. They were also provided information on places to get the callus treatment. At this time recommend using a pumice stone or foot file to the area 2-3 times a week. Recommend motioning a daily. Talked about using memory foam inserts to help cushion the area and not go barefootor in socks. Discussed that with neuropathy sometimes these can lead to ulcerations and to check her feet daily. Discussed that if it starts to build up again to come in to get it debrided to preventulcerations. Recommend using an iaoc-gcp-llecfgq insert such as Superfeet green color and cutting, under the callused areas to decrease pressure to those areas. Discussed causes and treatments of nail fungus. Explained that even if a culture comes back negative, a patient could still have nail fungus. Discussed treatment options with patient and explained that there isn't one treatment that is 100% effective. Discussed oral lamisil which is the most effective at about 70% but which can have liver effects. Explained that if she wanted to try this that she would need serial blood draws to test her liver function. Discussed over the counter antifungal creams. Explained that these are about 50% effective and need to be applied once a day for about 6-8months. Also talked about prescription penlac which is a nail laquer. Again this is also only 50% effective. Also discussed that if there was damage to the nail and the nail is now dystrophic that non ofthe above is going to change the nail. If there was damage, there is note anything that can be donefor the nail to correct it. Discussed that if it becomes painful, we can remove the nail in clinic. Was given an order for an antifungal cream to apply daily for the next 6 to 12 months. Patient risk factor: Patient is at medium risk for infection. . All questions were answered to patients satisfaction and they will call with further questions or concerns. Ruth Leyva DPM, Podiatry/Foot and Ankle Surgery documented in this encounter Plan of Treatment Upcoming Encounters Date Type Department Care Team (Late st Contact Info) Description 06/13/2025 6:00 PM HEALTH ADMINISTRATION TEACHER Ancillary Procedure [facility] Imaging [facility] [address] [phone] Omar Carmona MD [address] [place] [address] [phone] 06/14/2025 4:00 PM HEALTH ADMINISTRATION TEACHER Office Visit [facility] Primary Care Clinic [address] [place] [phone] Omar Carmona MD [address] [place] [address] 277[address] 06/15/2025 12:45 PM HEALTH ADMINISTRATION TEACHER Therapy Visit [facility] Rehabilitation Services [facility] [address] [place] [phone] Jason Alvares MD [address] [facility] [address] [place], [place] [address] Chaya Castillo, OTR [facility] [address] [place] [address] 06/19/2025 10:30 AM HEALTH ADMINISTRATION TEACHER Virtual Visit [facility] Primary Care Clinic [address] [place] [address] [phone] Omar Carmona MD [address] [place] [address] [phone] Gerson Santos, [facility] 06/26/2025 11:00 AM HEALTH ADMINISTRATION TEACHER Therapy Visit [address] [phone] Jason Alvares MD [address] [place] [address] Chaya Castillo OTR [facility] [address] [place] [address] 07/09/2025 12:45 PM HEALTH ADMINISTRATION TEACHER Therapy Visit [address] [phone] Jason Alvares MD [address] [place] [address] [phone] Chaya Castillo OTR [facility] [address] [place] [address] 07/18/2025 3:00 PM HEALTH ADMINISTRATION TEACHER Office Visit [facility] Heart Clinic [address] [phone] Adonay Chapman APRN [facility] [address] [place], [place] [address] 11/05/2025 12:30 PM CDT Lab [facility] Lab [address] [phone] 11/05/2025 1:45 PM CDT Office Visit [facility] Dermatology Clinic [place] [address] [facility] [address] [place] [phone] Gavi Nieto PA-C Dermatology [address] [place] [address] 11/20/2025 10:30 AM CDT Virtual Visit [address] [place] [address] Marquise Hanley MD [address] [place] [address] documented as of this encounter Goals Goal Patient Goal Type Associated Problems Recent Progress Patient-Stated? Author Quit smoking / using tobacco Lifestyle Rio Will MD Note: 06/25/14 planned quit date documented as of this encounter Visit Diagnoses Diagnosis Foot pain, bilateral- Primary Hammertoe of left foot Callus of foot Corns and callosities Onychomycosis of toenail Dermatophytosis of nail Idiopathic peripheral neuropathy Unspecified hereditary and idiopathic peripheral neuropathy Congenital bilateral pes cavus documented in this encounter Additional Health Concerns Infection Onset Date Last Indicated Resolved Time MRSA Comment:Added from external infection. 10/23/2020 10/21/2020 Assessment Noted Time PHQ-9 Depression Total Score: 10 025 9:03 AM CDT documented as of this encounter Care Teams Reactor Kettle Operator Relationship Specialty Start Date End Date Omar Carmona MD [address] [place] [address] PCP - General Family Medicine 07/14/24 Barry Kilpatrick MD [address] [place] [address] [id number] [place] [address] Neurology 07/19/14 Michelle Henderson I, RN Nurse Coordinator Neurology 07/19/14 Rio Jaquez MD [address] [place] [address] [phone] Family Practice 10/15/14 Jemima Jaramillo MD [address] [place] [address] owner 11/20/14 Kelley Chin, TANIA [address] [id number] Nurse Coordinator Cardiology 11/04/15 Sydnee Saleem MD [address] [place], [place] [address] [place], [place] [phone] Cardiology 11/04/15 Karlene Moya MD [address] [place] [address] [phone] Ophthalmology 06/24/17 Wilbert Quintero, OD [address] [place] [address] [phone] Optometry 06/24/17 Rod Gauthier DPM [address] [place] [address] [phone] Senior Receptionist Primary Podiatric Medicine 06/21/18 Jan Mahmood MD [address] [place] [address] [phone] Gastroenterology 11/05/20 Brandt Quintana MD [address] [place] [address] Resident 11/05/20 Jan Mahmood MD [address] [facility] [address] [place] [address] Assigned Gastroenterology Provider 12/01/20 Dom Eason MD [address] [facility] [address] [place] [address] Internal Medicine 12/02/20 Jaimie Vernon, TANIA Specialty Sales Trader Cardiology 10/28/21 Marquise Hanley MD [address] [place] [address] Endocrinology, Diabetes, and Metabolism 03/05/22 Vlad Ramey MD [address] [place] [address] [phone] Cardiovascular Disease 05/07/22 Joesph Crowe MD [address] [place] [address] 11652 Surgery 05/07/22 Michelle Padilla RN Specialty Sales Trader Cardiology 07/03/22 Marquise Hanley MD [address] [place] [address] [phone] Assigned Endocrinology Provider 08/15/22 Wagner Oliver MD [address] [place] [address] Critical Care 12/15/22 Joesph Crowe MD [address] [place] [address] [phone] Surgery 03/17/23 Adonay Haq MD [address] [place] [address] [phone] Internal Medicine 06/14/23 Ruth Leyva DPM, Podiatry/Foot and Ankle Surgery [address] [phone] Assigned Musculoskeletal Provider 10/22/23 Jignesh Mathias MD [address] [place] [address] [phone] Gastroenterology 09/25/24 Omar Carmona MD [address] [place] [address] [phone] Assigned PCP 12/29/24 Jason Alvares MD [address] [place] [address] [phone] Assigned Neuroscience Provider 12/29/24 Jignesh Mathias MD [address] [place] [address] 17010 Assigned Surgical Provider 12/29/24 Ayad Lopez, PhD LP [address] [place] [address] [phone] Assigned Behavioral Health Provider 02/28/25 Gavi Nieto PA-C [address] [place] [address] 00369 Physician Life Insurance Actuary Dermatology 03/19/25 documented as of this encounter
--- OUTSIDE RECORDS SUMMARY | 2025-04-30 11:00 | XMS_ITS | Encounter Summary ---
Author Organization [facility] Address [address] [place] [address] Care Team Providers Care Maternity Nurse Name Role Phone Barry Kilpatrick MD Unavailable Michelle Henderson RN Unavailable [phone] Rio Jaquez MD Unavailable [phone] Jemima Jaramillo MD Unavailable Unavai Kelley Bautista RN Unavailable [phone] Sydnee Saleem MD Unavailable [phone] Karlene Moya MD Unavailable [phone] Wilbert Quintero OD Unavailable +[phone] Rod Gauthier DPM Unavailable [phone] Jan Mahmood MD Unavailable [phone] Brandt Quintana MD Unavailable Jan Mahmood MD Unavailable [phone] Dom Eason MD Unavailable [phone] Jaimie Vernon RN Unavailable Unavailable Marquise Hanley MD Unavailable [phone] Vlad Ramey MD Unavailable [phone] Joesph Crowe MD Unavailable Michelle Padilla RN Unavailable Unavaila ble Marquise Hanley MD Unavailable [phone] Wagner Oliver MD Unavailable [phone] Joesph Crowe MD Unavailable [phone] Adonay Haq MD Unavailable [phone] Ruth Riddle DPM, Podiatry /Foot and Ankle Surgery Unavailable Omar Carmona MD Primary Care Provider [phone] Jignesh Mathias MD Unavailable Omar Carmona MD Unavailable Jason Alvares MD Unavailable Jignesh Mathias MD Unavailable Ayad Lopez PhD LP Unavailable [phone] Gavi Nieto PA-C Unavailable [phone] Reason for Visit * Rehab Therapy Occupational Therapy (Routine: Next available opening) - Authorized Specialty Diagnoses / Procedures Referred By Contjackelin t Referred To Contact Occupational Therapy Diagnoses Seizures, post-traumatic (H) [address] [address] Phone: tel: Referral ID Status Reason Start Date Expiration Date V isits Requested Visits Authorized [id number] Authorized 01/09/2025 08/08/2025 60 60 Encounter Details Date Type Department Care Team (Late st Contact Info) Description 04/30/2025 11:00 AM CDT Therapy Visit [address] [address] Jason Alvares MD [address] [place] [address] Chaya Castillo, OTR [facility] [address] [facility] [place] [address] Seizures, post-traumatic (H) (Primary Dx) Social History [...] Answer Date Recorded PHQ-2 Score 2 04/11/2025 [facility] - Occupational [...] an overnight skilled nursing, or couch-surfing.) Yes 04/30/2025 Are you worried [...] Sex Assigned at Female 09/12/2020 12:05 PM COPY MESSENGER Legal Sex Female 3:26 AM COPY MESSENGER Gender Identity Female 09/12/2020 12:05 PM COPY MESSENGER Sexual Orientation Straight 12/19/2021 10 :44 AM CDT Occupation Industry Job Start Date Job End Date on disability for FMS Not on file Not on file Not on file disabled Not on file Not on file Not on file documented as of this encounter Plan of Treatment Upcoming Encounters Date Type Department Care Team (Late st Contact Info) Description 06/13/2025 6:00 PM COPY MESSENGER Ancillary Procedure [facility] Imaging Center CT Clinic [address] [place] [address] Omar Carmona MD [address] [place] [address] 06/14/2025 4:00 PM COPY MESSENGER Office Visit [facility] Primary Care Clinic [address] [place] [address] Omar Carmona MD [address] [place] [address] 06/15/2025 12:45 PM COPY MESSENGER Therapy Visit [facility] [place] [phone] Jason Alvares MD [address] [place] [address] Chaya Castillo OTR [facility] 150 [place] [address] 06/19/2025 10:30 AM COPY MESSENGER Virtual Visit [facility] Primary Care Clinic 9 [facility] 4th [place] [phone] Omar Carmona MD [address] [place] [address] 655675 Gerson Santos [facility] 06/26/2025 11:00 AM COPY MESSENGER Therapy Visit [facility] 150 [place] [phone] Jason Alvares MD [address] [place] [address] Chaya Castillo OTR [facility] 150 [place] [address] 07/09/2025 12:45 PM COPY MESSENGER Therapy Visit [facility] 150 [place] [phone] Jason Alvares MD [address] [place] [address] Chaya Castillo OTR [facility] 150 [place] [address] 07/18/2025 3:00 PM COPY MESSENGER Office Visit [facility] Heart [address] [phone] Adonay Chapman APRN HEMATOLOGY TECHNOLOGIST 500 [place] [address] 11/05/2025 12:30 PM CDT Lab [facility] Lab [address] [phone] 11/05/2025 1:45 PM CDT Office Visit [facility] Dermatology [address] [phone] Gavi Nieto PAJimmy Dermatology [address] [place] [address] [phone] 11/20/2025 10:30 AM CDT Virtual Visit [address] [phone] Marquise Hanley MD [address] [place] [address] [phone] documented as of this encounter Goals Goal [...] documented as of this encounter Care Teams Maternity Nurse Relationship Specialty Start Date End Date Omar Carmona MD [address] [place] [address] [phone] PCP - General Family Medicine 07/14/24 Barry Kilpatrick MD 9 [facility] [id number] [place], [place] 155785 Neurology 07/19/14 Michelle Henderson I, RN Nurse Coordinator Neurology 07/19/14 Rio Jaquez MD [address] [place] [address] 4 [place], [place] 364325 Family Practice 10/15/14 Jemima Jaramillo MD [address] [place] [address] 4 [place] [address] lacquer polisher 11/20/14 Kelley Chin RN [address] 409765 Nurse Coordinator Cardiology 11/04/15 Sydnee Saleem MD [address] [place] [address] 508 [place], [place] 414405 Cardiology 11/04/15 Karlene Moya MD [address] [place] [address] [phone] Ophthalmology 06/24/17 Wilbert Quintero, OD [address] [place] [address] 746645 Optometry 06/24/17 Rod Gauthier, BILLY [address] [place] [address] [phone] Farm [employer] Primary Podiatric Medicine 06/21/18 Jan Mahmood MD 516 [facility] 2A [place] [address] Gastroenterology 11/05/20 Brandt Quintana MD 1414 [place] [address] Resident 11/05/20 Jan Mahmood MD 516 [facility] 2A [place] [address] Assigned Gastroenterology Provider 12/01/20 Dom Eason MD [address] [address] Internal Medicine 12/02/20 Jaimie Vernon, RN Specialty Hvac Instructor Cardiology 10/28/21 Marquise Hanley MD [address] [place] [address] Endocrinology, Diabetes, and Metabolism 03/05/22 Vlad Ramey MD [address] [place] [address] Cardiovascular Disease 05/07/22 Joesph Crowe MD [address] [place] [address] Surgery 05/07/22 Mcihelle Padilla RN Specialty Hvac Instructor Cardiology 07/03/22 Marquise Hanley MD [address] [place] [address] Assigned Endocrinology Provider 08/15/22 Wagner Oliver MD [address] [place] [address] Critical Care 12/15/22 Joesph Crowe MD [address] [place] [address] Surgery 03/17/23 Adonay Haq MD [address] [place] [address] 241005 Internal Medicine 06/14/23 Ruth Riddle DPM, Podiatry/Foot and Ankle Surgery [address] [place], [place] 9790[address] Assigned Musculoskeletal Provider 10/22/23 Jignesh Mathias MD [address] [place] [address] 277215 Gastroenterology 09/25/24 Omar Carmona MD [address] [place] [address] 197265 Assigned PCP 12/29/24 Jason Alvares MD [address] [place] [address] [phone] Assigned Neuroscience Provider 12/29/24 Jignesh Mathias MD [address] [place] [address] Assigned Surgical Provider 12/29/24 Ayad Lopez, PhD LP [address] [place] [address] 069495 Assigned Behavioral Health Provider 02/28/25 Gavi Nieto PA-C [address] [place] [address] 676185 Physician Transportation Refrigeration Technician Dermatology 03/19/25 documented as of this encounter
--- OUTSIDE RECORDS SUMMARY | 2025-05-03 16:00 | XMS_ITS | Encounter Summary ---
Author Organization [place] Address [address] [place] [address] Care Team Providers Care Supervisor Joiners Name Role Phone Barry Kilpatrick MD Unavailable Michelle Henderson RN Unavailable [phone] Rio Jaquez MD Unavailable [phone] Jemima Jaramillo MD Unavailable Unavai Kelley Bautista RN Unavailable [phone] Sydnee Saleem MD Unavailable [phone] Karlene Moya MD Unavailable [phone] Wilbert Quintero OD Unavailable [phone] Rod Gauthier DPM Unavailable [phone] Jan Mahmood MD Unavailable [phone] Brandt Quintana MD Unavailable [phone] Jan Mahmood MD Unavailable [phone] Dom Eason MD Unavailable [phone] Jaimie Vernon RN Unavailable Unavailable Marquise Hanley MD Unavailable +[phone] Vlad Ramey MD Unavailable [phone] Joesph Crowe MD Unavailable Michelle Padilla RN Unavailable Unavaila ble Marquise Hanley MD Unavailable +[phone] Wagner Oliver MD Unavailable [phone] Joesph Crowe MD Unavailable Adonay Haq MD Unavailable [phone] Ruth RiddleM, Podiatry /Foot and Ankle Surgery Unavailable Omar Carmona MD Primary Care Provider [phone] Jignesh Mathias MD Unavailable Omar Carmona MD Unavailable [phone] Jason Alvares MD Unavailable Jignesh Mathias MD Unavailable Ayad Lopez PhD LP Unavailable [phone] Gavi Nieto-C Unavailable [phone] Reason for Referral * Diagnostic Imaging CT Scan (Routine) - Pending Review Specialty Diagnoses / Procedures Referred By Good zhu Referred To Contact Radiology. Diagnoses Smoker Procedures CT Chest Low Dose Non Contrast Omar Carmona MD [address] [place] [address] Phone: tel: fax: Referral ID Status Reason Start Date Expiration Date V isits Requested Visits Authorized [id number] Pending Review 05/03/2025 05/03/2026 1 1 * Med Therapy Management (Routine: Next available opening) - Authorized Specialty Diagnoses / Procedures Referred By Good zhu Referred To Contact Pharmacist Diagnoses Encounter for smoking cessation counseling Omar Camrona MD [address] [place] [address] Phone: tel: fax: Referral ID Status Reason Start Date Expiration Date V isits Requested Visits Authorized [id number] Authorized 05/03/2025 05/03/2026 1 1 Question Answer Type of MTM: Primary Care Course of Action: Other Reason for Referral: Smoker Comments [facility] Medication Therapy Management department will contact you [...] prescription and non-prescription medications (such as vitamins, osnu-lxu-ypcqcrv medications, and herbals) or a detailed medication list to your appointment. If you have a glucose meter or other home monitoring information, please also bring this to your appointment (i.e. blood glucose log, blood pressure log, pain log, etc.). Reason for Visit * Reason Comments Physical Encounter Details Date Type Department Care Team (Latest Contact Info) Description 05/03/2025 4:00 PM CDT Office Visit [facility] [address] [address] Omar Carmona MD [address] [place] [address] CKD (chronic kidney disease) stage 2, GFR [...] Answer Date Recorded PHQ-2 Score 2 05/03/2025 [facility] - Occupational [...] Sex Assigned at Female 09/12/2020 12:05 PM BANKING MANAGEMENT CONSULTING MANAGER Legal Sex Female 3:26 AM BANKING MANAGEMENT CONSULTING MANAGER Gender Identity Female 09/12/2020 12:05 PM BANKING MANAGEMENT CONSULTING MANAGER Sexual Orientation Straight 12/19/2021 10 :44 [...] note were not included. Preventive Care Visit [facility] Omar Carmona MD, Family Medicine May 03, 2025 Assessment & Plan CKD (chronic kidney disease) stage 2, GFR 60-89 ml/min - Comprehensive metabolic panel (BMP + Alb, Alk Phos, ALT, AST, Total. Bili, TP); Future - CBC with platelets and differential; Future Screening for cardiovascular condition Done at [facility] Hyperlipidemia, unspecified hyperlipidemia type - Comprehensive metabolic [...] was done last for other reasons at [facility], but has not had one lately and not a smoker screening one; if it turns out [facility] does a chest ct yearly for other reasons then that would suffice Labs ordered today she plans to do on day she sees Endocrine MD in May All doctors are now at the except she'll keep [facility] cardiology Past Medical History: Diagnosis Date Anemia [...] Surgeon: Luke Mercedes MD; Location: HEART CARDIAC LINSEED OIL PRESS TENDER DENTAL SURGERY ESOPHAGOSCOPY, GASTROSCOPY, DUODENOSCOPY (EGD), COMBINED 03/16/2011 Procedure:COMBINED ESOPHAGOSCOPY, GASTROSCOPY, DUODENOSCOPY (EGD); Surgeon:SUZETTE SAINI; Location:[facility] OR ESOPHAGOSCOPY, GASTROSCOPY, DUODENOSCOPY (EGD), COMBINED N/A 03/02/2019 Procedure: ESOPHAGOGASTRODUODENOSCOPY, WITH BIOPSY; Surgeon: Joselin Mederos MD; Location: GI ESOPHAGOSCOPY, GASTROSCOPY, DUODENOSCOPY (EGD), COMBINED N/A 02/28/2021 Procedure: ESOPHAGOGASTRODUODENOSCOPY (EGD); Surgeon: Jan Mahmood MD; [place] [facility] [place]OPHAGOSCOPY, GASTROSCOPY, DUODENOSCOPY (EGD), COMBINED N/A [...] 10/14/2020 IR TRANSCATHETER BIOPSY 12/11/2020 LAPAROSCOPY DIAGNOSTIC (PIPE ORGAN MECHANIC APPRENTICE) LUMBAR PUNCTURE FLUORO GUIDED DIAGNOSTIC MEDIASTINOSCOPY 03/16/2011 Procedure:MEDIASTINOSCOPY; with Biopsies; Surgeon:SUZETTE SAINI; Location: OR OOPHOROPEXY OVARY SURGERY N/A PICC 10/30/2020 PICC MIDLINE INSERTION 10/27/2020 KS SIGMOIDOSCOPY FLX DX W/COLLJ SPEC BR/WA IF PFRMD N/A 10/25/2020 Procedure: SIGMOIDOSCOPY, FLEXIBLE; Surgeon: Luis Lobo MD; Location: [facility]; Service: Gastroenterology SALPINGO-OOPHORECTOMY, COMBINED left US [...] None Other Topics Concern Parent/sibling w/ CABG, PA or angioplasty before 65F 55M? No Social History Narrative , one son Mike attending [employer]. 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 [...] 30 min Stress: Stress Concern Present (04/30/2025) [employer] [facility] [facility] - Occupational Stress Questionnaire [...] HR HPV Negative Negative Negative ASCVD Risk Automobile Relocation Engineer The ASCVD Risk score (Fredo DK, et [...] Practice) Jemima Jaramillo MD (Inactive) as MD (flight operations manager) Kelley Chin, RN as Nurse Coordinator (Cardiology) Sydnee Saleem MD as MD (Cardiology) Karlene Moya MD as MD (Ophthalmology) Wilbert Quintero OD as MD (Optometry) Rod Gauthier DPM as MD ([facility]) Jan Mahmood MD as MD (Gastroenterology) Brandt Quintana MD as Resident Jan Mahmood MD as Assigned Gastroenterology Provider Dom Eason MD as MD (Internal Medicine) Jaimie Vernon, RN as Specialty Insurance Collector (Cardiology) Marquise Hanley MD as MD (Endocrinology, Diabetes, and Metabolism) Vlad Ramey MD as MD (Cardiovascular Disease) Joesph Crowe MD as (Surgery) Michelle Padilla, RN as Specialty Insurance Collector (Cardiology) Marquise Hanley MD as Assigned Endocrinology Provider Wagner Oliver [...] Health Provider Gavi Nieto PA-C as Physician Steno Pool Supervisor (Dermatology) The following health maintenance items are [...] Surgeon: Luke Mercedes MD; Location: HEART CARDIAC LINSEED OIL PRESS TENDER DENTAL SURGERY ESOPHAGOSCOPY, GASTROSCOPY, DUODENOSCOPY (EGD), COMBINED [...] 10/14/2020 IR TRANSCATHETER BIOPSY 12/11/2020 LAPAROSCOPY DIAGNOSTIC (PIPE ORGAN MECHANIC APPRENTICE) LUMBAR PUNCTURE FLUORO GUIDED DIAGNOSTIC MEDIASTINOSCOPY 03/16/2011 Procedure:MEDIASTINOSCOPY; with Biopsies; Surgeon:SUZETTE SAINI; Location:[facility] OR OOPHOROPEXY OVARY SURGERY N/A PICC 10/30/2020 PICC MIDLINE INSERTION 10/27/2020 KS SIGMOIDOSCOPY FLX DX W/COLLJ SPEC BR/WA IF PFRMD N/A 10/25/2020 Procedure: SIGMOIDOSCOPY, FLEXIBLE; Surgeon: Luis Lobo MD; Location: [facility]; Service: Gastroenterology SALPINGO-OOPHORECTOMY, COMBINED left US [...] None Other Topics Concern Parent/sibling w/ CABG, PA or angioplasty before 65F 55M? No Social History Narrative , one son Mike attending [employer]. 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 [...] 30 min Stress: Stress Concern Present (04/30/2025) [employer] [facility] - Occupational Stress Questionnaire [...] st Contact Info) Description 06/13/2025 6:00 PM BANKING MANAGEMENT CONSULTING MANAGER Ancillary Procedure [facility] [address] [address] Omar Carmona MD [address] [place] [address] 06/14/2025 4:00 PM BANKING MANAGEMENT CONSULTING MANAGER Office Visit [facility] Primary Care [address] [phone] Omar Carmona MD [address] [place] [address] 06/15/2025 12:45 PM BANKING MANAGEMENT CONSULTING MANAGER Therapy Visit [facility] [address] [facility] [place] [phone] Jason Alvares MD [address] [place] [address] 295 [place], [place] [phone] Chaya Castillo OTR [facility] 150 [place], [place] [address] 06/19/2025 10:30 AM BANKING MANAGEMENT CONSULTING MANAGER Virtual Visit [facility] Primary Care [address] [phone] Omar Carmona MD [address] [place] [address] 737615 [facility] 06/26/2025 11:00 AM BANKING MANAGEMENT CONSULTING MANAGER Therapy Visit [facility] [address] [place] [phone] Jason Alvares MD [address] [place] [address] 295 [place], [place] 6[address] Chaya Castillo OTR [facility] 150 [place] [address] 07/09/2025 12:45 PM BANKING MANAGEMENT CONSULTING MANAGER Therapy Visit [facility] [address] [place] [phone] Jason Alvares MD 420 [facility] 295 [place] [address] Chaya Castillo OTR [address] [address] 07/18/2025 3:00 PM BANKING MANAGEMENT CONSULTING MANAGER Office Visit [facility] Heart [address] [phone] Adonay Chapman APRN [facility] 500 [place], [place] [address] 11/05/2025 12:30 PM CDT Lab [facility] Lab [address] [place] [phone] 11/05/2025 1:45 PM CDT Office Visit [facility] Dermatology [address] [place] [phone] Gavi Nieto PA-C Dermatology [address] [place] [address] 11/20/2025 10:30 AM CDT Virtual Visit [address] [place] [phone] Marquise Hanley MD [address] [place] [address] Scheduled Orders Name Type Priority Associated Diagnoses [...] intake, and treatment affect the concentration of 10-lrwvwmm-Xsfwegg D. Values may decrease during winter months and increase during summer months. Vitamin D determination is routinely performed by an immunoassay specific for 25 hydroxyvitamin D3. If an individual is on vitamin D2(ergocalciferol) supplementation, please specify 25 OH vitamin D2 and D3 level determination by LCMSMS test VITD23. us Omar Carmona MD LAB - BLOOD ORDERABLES Ashly rivera Result [facility] 500 [facility], Room [address] [address] documented in this encounter Visit Diagnoses [...] as of this encounter Care Teams Supervisor Joiners Relationship Specialty Start Date End Date Omar Carmona MD [address] [place] [address] 856385 PCP - General Family Medicine 07/14/24 Barry Kilpatrick MD [address] [place] [address] [id number] [place], [place] 726805 Neurology 07/19/14 Michelle Henderson I, RN Nurse Coordinator Neurology 07/19/14 Rio Jaquez MD [address] [place] [address] 947185 Family Practice 10/15/14 Jemima Jaramillo MD [address] [place] [address] flight operations manager 11/20/14 Kelley Chin, [facility] [address] [place] [address] 680805 Nurse Coordinator Cardiology 11/04/15 Sydnee Saleem MD [address] [place] [address] 508 [place], [place] 730335 Cardiology 11/04/15 Karlene Moya MD [address] [place] [address] 474565 Ophthalmology 06/24/17 Wilbert Quintero, OD [address] [place] [address] 347385 Optometry 06/24/17 Rod Gauthier DPM [address] [place] [address] [phone] MD [facility] 06/21/18 Jan Mahmood MD [address] [place] [address] MD Gastroenterology 11/05/20 Brandt Quintana MD [address] [place] [address] Resident 11/05/20 Jan Mahmood MD [address] [place] [address] Assigned Gastroenterology Provider 12/01/20 Dom Eason MD [address] [place] [address] Internal Medicine 12/02/20 Jaimie Vernon, TANIA Specialty Insurance Collector Cardiology 10/28/21 Marquise Hanley MD [address] [place] [address] Endocrinology, Diabetes, and Metabolism 03/05/22 Vlad Ramey MD [address] [place] [address] Cardiovascular Disease 05/07/22 Joesph Crowe MD [address] [place] [address] Surgery 05/07/22 Michelle Padilla RN Specialty Insurance Collector Cardiology 07/03/22 Marquise Hanley MD [address] [place] [address] Assigned Endocrinology Provider 08/15/22 Wagner Oliver MD [address] [place] [address] Critical Care 12/15/22 Joesph Crowe MD [address] [place] [address] Surgery 03/17/23 Adonay Haq MD [address] [place] [address] Internal Medicine 06/14/23 Ruth Riddle DPM, Podiatry/Foot and Ankle Surgery [address] [address] Assigned Musculoskeletal Provider 10/22/23 Jignesh Mathias MD [address] [place] [address] Gastroenterology 09/25/24 Omar Carmona MD [address] [place] [address] Assigned PCP 12/29/24 Jason Alvares MD [address] [place] [address] Assigned Neuroscience Provider 12/29/24 Jignesh Mathias MD [address] [place] [address] Assigned Surgical Provider 12/29/24 Ayad Lopez, PhD LP [address] [place] [address] Assigned Behavioral Health Provider 02/28/25 Gavi Nieto PA-C [address] [place] [address] Physician Steno Pool Supervisor Dermatology 03/19/25 documented as of this encounter
--- OUTSIDE RECORDS SUMMARY | 2025-05-11 09:30 | XMS_ITS | Encounter Summary ---
Author Organization [facility] Address [address] [place] [address] Care Team Providers Care Therapist Radiation Name Role Phone Barry Kilpatrick MD Unavailable Michelle Henderson RN Unavailable [phone] Rio Jaquez MD Unavailable [phone] Jemima Jaramillo MD Unavailable Unavai Kelley Bautista RN Unavailable [phone] Sydnee Saleem MD Unavailable [phone] Karlene Moya MD Unavailable [phone] Wilbert Quintero OD Unavailable [phone] Rod Gauthier DPM Unavailable [phone] Jan Mahmood MD Unavailable [phone] Brandt Quintana MD Unavailable [phone] Jan Mahmood MD Unavailable [phone] Dom Eason MD Unavailable [phone] Jaimie Vernon RN Unavailable Unavailable Marquise Hanley MD Unavailable [phone] Vlad Ramey MD Unavailable [phone] Joesph Crowe MD Unavailable Michelle Padilla RN Unavailable Unavaila ble Marquise Hanley MD Unavailable [phone] Wagner Oliver MD Unavailable [phone] Joesph Crowe MD Unavailable Adonay Haq MD Unavailable [phone] Ruth Riddle DPM, Podiatry /Foot and Ankle Surgery Unavailable Omar Carmona MD Primary Care Provider [phone] Jignesh Mathias MD Unavailable Omar Carmona MD Unavailable Jason Alvares MD Unavailable Jignesh Mathias MD Unavailable Ayad Lopez PhD LP Unavailable Gavi Nieto PA-C Unavailable [phone] Reason for Visit * Rehab Therapy Occupational Therapy (Routine: Next available opening) - Authorized Specialty Diagnoses / Procedures Referred By Contjackelin t Referred To Contact Occupational Therapy Diagnoses Seizures, post-traumatic (H) [address] [address] Phone: tel: Referral ID Status Reason Start Date Expiration Date V isits Requested Visits Authorized [id number] Authorized 01/09/2025 08/08/2025 60 60 Encounter Details Date Type Department Care Team (Late st Contact Info) Description 05/11/2025 9:30 AM CDT Therapy Visit [address] [address] Jason Alvares MD [address] [place] [address] Chaya Castillo, OTR [place] [facility] [address] [facility] [place] [address] Seizures, post-traumatic (H) (Primary Dx) Social History [...] Answer Date Recorded PHQ-2 Score 2 05/03/2025 [facility] - [...] an overnight long term, or couch-surfing.) Yes 04/30/2025 Are you worried [...] Sex Assigned at Female 09/12/2020 12:05 PM 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 Legal Sex Female 3:26 AM 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 TECHNICIAN Gender Identity Female 09/12/2020 12:05 PM 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 TECHNICIAN Sexual Orientation Straight 12/19/2021 10 :44 AM CDT Occupation Industry Job Start Date Job End Date on disability for FMS Not on file Not on file Not on file disabled Not on file Not on file Not on file documented as of this encounter Plan of Treatment Upcoming Encounters Date Type Department Care Team (Late st Contact Info) Description 06/13/2025 6:00 PM 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 TECHNICIAN Ancillary Procedure [facility] [address] [address] Omar Carmona MD [address] [place] [phone] 06/14/2025 4:00 PM 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 TECHNICIAN Office Visit [facility] [address] [place] [address] Omar Carmona MD [address] [place] [address] 06/15/2025 12:45 PM 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 TECHNICIAN Therapy [facility] [address] [facility] [place] [phone] Jason Alvares MD [address] [place] [address] Chaya Castillo OTR [facility] [address] [place] [address] 06/19/2025 10:30 AM 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 TECHNICIAN Virtual Visit [facility] [address] [place] [address] 4th [place] [phone] Omar Carmona MD [address] [place] [phone] Gerson Santos [facility] 06/26/2025 11:00 AM 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 TECHNICIAN Therapy Visit [facility] [address] [place] [phone] Jason Alvares MD [address] [place] [address] Chaya Castillo OTR [facility] [address] [place] [address] 07/09/2025 12:45 PM 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 TECHNICIAN [facility] [address] [place] [phone] Jason Alvares MD [address] [place] [address] Chaya Castillo OTR [facility] [address] [place] [address] 07/18/2025 3:00 PM 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 TECHNICIAN Office Visit [facility] [address] [phone] Adonay Chapman APRN [facility] [address] [place] [address] 11/05/2025 12:30 PM CDT Lab [facility] [address] [place] [phone] 11/05/2025 1:45 PM CDT Office Visit [facility] [address] [place] [phone] Gavi Nieto PAJimmy Dermatology [address] [place] [address] [phone] 11/20/2025 10:30 AM CDT Virtual Visit [address] [phone] Marquise Hanley MD [address] [place] [address] [phone] documented as of this encounter Goals Goal [...] documented as of this encounter Care Teams Therapist Radiation Relationship Specialty Start Date End Date Omar Carmona MD [address] [place] [address] [phone] PCP - General Family Medicine 07/14/24 Barry Kilpatrick MD 9 [facility] [id number] [place], [place] 198[address] Neurology 07/19/14 Michelle Henderson I, RN Nurse Coordinator Neurology 07/19/14 Rio Jaquez MD [address] [place] [address] 4 [place], [place] [phone] Family Practice 10/15/14 Jemima Jaramillo MD [address] [place] [address] 4 [place] [address] 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 11/20/14 Kelley Chin RN [address] [phone] Nurse Coordinator Cardiology 11/04/15 Sydnee Saleem MD [address] [facility] [address] [place], [place] 166025 Cardiology 11/04/15 Karlene Moya MD [address] [place] [address] [phone] Ophthalmology 06/24/17 Wilbert Quintero, OD [address] [place] [address] [phone] Optometry 06/24/17 Rod Gauthier, BILLY [address] [place] [address] [phone] Lifter/Driver Primary Podiatric Medicine 06/21/18 Jan Mahmood MD [address] [facility] [place] [address] Gastroenterology 11/05/20 Brandt Quintana MD [address] [place] [address] Resident 11/05/20 Jan Mahmood MD [address] [facility] [address] [place] [address] Assigned Gastroenterology Provider 12/01/20 Dom Eason MD [address] [address] Internal Medicine 12/02/20 Jaimie Vernon, RN Specialty Snuff Grinder And Screener Cardiology 10/28/21 Marquise Hanley MD [address] [place] [address] Endocrinology, Diabetes, and Metabolism 03/05/22 Vald Ramey MD [address] [place] [address] Cardiovascular Disease 05/07/22 Joesph Crowe MD [address] [place] [address] Surgery 05/07/22 Michelle Padilla, RN Specialty Snuff Grinder And Screener Cardiology 07/03/22 Marquise Hanley MD [address] [place] [address] Assigned Endocrinology Provider 08/15/22 Wagner Oliver MD [address] [place] [address] Critical Care 12/15/22 Joesph Crowe MD [address] [place] [address] Surgery 03/17/23 Adonay Haq MD [address] [place] [address] [phone] Internal Medicine 06/14/23 Ruth Riddle DPM, Podiatry/Foot and Ankle Surgery [address] [place], [place] [phone] Assigned Musculoskeletal Provider 10/22/23 Jignesh Mathias MD [address] [place] [address] [phone] Gastroenterology 09/25/24 Omar Carmona MD [address] [place] [address] [phone] Assigned PCP 12/29/24 Jason Alvares MD [address] [place] [address] [phone] Assigned Neuroscience Provider 12/29/24 Jignesh Mathias MD [address] [place] [address] Assigned Surgical Provider 12/29/24 Ayad Lopez, PhD LP [address] [place] [address] [phone] Assigned Behavioral Health Provider 02/28/25 Gavi Nieto PA-C [address] [place] [address] [phone] Physician Mail Clerk Bills Dermatology 03/19/25 documented as of this encounter
--- OUTSIDE RECORDS SUMMARY | 2025-05-15 12:30 | XMS_ITS | Encounter Summary ---
Author Organization [place] Address [address] [place] [address] 197[address] Care Team Providers Care Medical Observer Name Role Phone Barry Kilpatrick MD Unavailable Michelle Henderson RN Unavailable [phone] Rio Jaquze MD Unavailable [phone] Jemima Jaramillo MD Unavailable Unavai Kelley Bautista RN Unavailable [phone] Sydnee Saleem MD Unavailable [phone] Karlene Moya MD Unavailable [phone] Wilbert Quintero OD Unavailable [phone] Rod Gauthier DPM Unavailable [phone] Jan Mahmood MD Unavailable [phone] Brandt Quintana MD Unavailable Jan Mahmood MD Unavailable [phone] Dom Eason MD Unavailable [phone] Yovani Vernon RN Unavailable Unavailable Marquise Hanley MD Unavailable [phone] Vlad Ramey MD Unavailable [phone] Joesph Crowe MD Unavailable Michelle Padilla RN Unavailable Unavaila ble Marquise Hanley MD Unavailable [phone] Wagner Oliver MD Unavailable [phone] Joesph Crowe MD Unavailable Adonay Haq MD Unavailable [phone] Ruth Riddle DPM, Podiatry /Foot and Ankle Surgery Unavailable Omar Carmona MD Primary Care Provider [phone] Jignesh Mathias MD Unavailable Omar Carmona MD Unavailable [phone] Jason Alvares MD Unavailable Jignesh Mathias MD Unavailable Ayad Lopez PhD LP Unavailable [phone] Gavi Nieot-C Unavailable [phone] Reason for Referral * Diagnostic Imaging Dexa (Routine) - Pending Review Specialty Diagnoses / Procedures Referred By Good t Referred To Contact Radiology. Diagnoses Compression fracture of T12 vertebra, sequela Osteoporotic compression fracture of spine, with routine healing, subsequent encounter Age-related osteoporosis with current pathological fracture, vertebra(e), initial encounter for fracture (H) Procedures DX Bone Density Marquise Hanley MD [address] [place] [address] Phone: tel: fax: Referral ID Status Reason Start Date Expiration Date V isits Requested Visits Authorized [id number] Pending Review 05/15/2025 05/15/2026 1 1 Reason for Visit * Reason Comments Osteoporosis 105 degree temp with last infusion Encounter Details Date Type Department Care Team (Late st Contact Info) Description 05/15/2025 12:30 PM CDT Office Visit [address] [address] Marquise Hanley MD [address] [place] [address] Compression fracture of T12 vertebra, sequela (Primary [...] Answer Date Recorded PHQ-2 Score 2 05/03/2025 [facility] - [...] in an overnight correction, or couch-surfing.) Yes 04/30/2025 Are you worried [...] Sex Assigned at Female 09/12/2020 12:05 PM CUP SETTER LOCKSTITCH Legal Sex Female 3:26 AM CUP SETTER LOCKSTITCH Gender Identity Female 09/12/2020 12:05 PM CUP SETTER LOCKSTITCH Sexual Orientation Straight 12/19/2021 10 :44 AM [...] portal hypertensive gastropathy. She is following with [place] [facility] for congenital heart defect. # compression [...] ago fell from the stairs, went to [facility] and was checked out. 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 Mild episode of recurrent [...] Surgeon: Luke Mercedes MD; Location: HEART CARDIAC FOOD SERVICE SUPERVISOR DENTAL SURGERY ESOPHAGOSCOPY, GASTROSCOPY, DUODENOSCOPY (EGD), COMBINED [...] 10/14/2020 IR TRANSCATHETER BIOPSY 12/11/2020 LAPAROSCOPY DIAGNOSTIC (TEENAGE BABYSITTER) LUMBAR PUNCTURE FLUORO GUIDED DIAGNOSTIC MEDIASTINOSCOPY 03/16/2011 Procedure:MEDIASTINOSCOPY; with Biopsies; Surgeon:SUZETTE SAINI; Location:[facility] OR OOPHOROPEXY OVARY SURGERY N/A PICC 10/30/2020 PICC MIDLINE INSERTION 10/27/2020 MT SIGMOIDOSCOPY FLX DX W/COLLJ SPEC BR/WA IF PFRMD N/A 10/25/2020 Procedure: SIGMOIDOSCOPY, FLEXIBLE; Surgeon: Luis Lobo MD; Location: [facility]; Service: Gastroenterology SALPINGO-OOPHORECTOMY, COMBINED left US PARACENTESIS [...] None Other Topics Concern Parent/sibling w/ CABG, OH or angioplasty before 65F 55M? No Social History Narrative , one son Mike attending [employer]. 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 Radiology Results were reviewed and updated in [facility] and discussed briefly. Summary of recent findings: [...] interval not displayed. No results found for: [id number], [id number], [id number] I personally reviewed the patient's outside records from [facility] EMR and Care Everywhere. Summary of pertinent [...] x 1.1 cm, previously 1.8 cm. This Hounsfield units. No obvious nodule on ct 03/2024. Test and/or medications prescribed today: Orders Placed This Encounter Procedures DX Bone Density Parathyroid Hormone Intact N telopeptide cross linked urine C-Telopeptide, Cddm-Jemoo-Jkzpad CBC with platelets and differential Follow-up after [...] Marquise Hanley MD Endocrinology, Diabetes and Metabolism [facility] documented in this encounter Nursing Notes [...] st Contact Info) Description 06/13/2025 6:00 PM CUP SETTER LOCKSTITCH Ancillary Procedure [address] [address] Omar Carmona MD [address] [place] [address] 06/14/2025 4:00 PM CUP SETTER LOCKSTITCH Office Visit [facility] Primary [facility] [address] [phone] mOar Carmona MD [address] [place] [address] 06/15/2025 12:45 PM CUP SETTER LOCKSTITCH Therapy Visit [facility] [address] [place] [phone] Jason Alvares MD [address] [place] [address] [phone] Chaya Castillo OTR [facility] [address] [place], [place] [phone] 06/19/2025 10:30 AM CUP SETTER LOCKSTITCH Virtual Visit [facility] [address] [phone] Omar Carmona MD [address] [place] [address] [phone] Gerson Santos [facility] 06/26/2025 11:00 AM CUP SETTER LOCKSTITCH Therapy Visit [facility] [address] [place] [phone] Jason Alvares MD [address] [place] [address] [phone] Chaya Castillo OTR [facility] [address] [place] [address] 07/09/2025 12:45 PM CUP SETTER LOCKSTITCH Therapy Visit [facility] [address] [place] [phone] Jason Alvares MD [address] [place] [address] [place] [address] Chaya Castillo OTR [address] [address] 07/18/2025 3:00 PM CUP SETTER LOCKSTITCH Office Visit [facility] Heart [address] [phone] Adonay Chapman APRN [facility] [address] [place] [address] 11/05/2025 12:30 PM CDT Lab [address] [place] [phone] 11/05/2025 1:45 PM CDT Office Visit [facility] Dermatology [address] [place] [phone] Gavi Nieto PA-C Dermatology [address] [place] [address] [phone] 11/20/2025 10:30 AM CDT Virtual Visit [address] [phone] Marquise Hanley MD [address] [place] [address] [phone] Pending Results Name Type Priority Associated Diagnoses Date /Time Vitamin B1 plasma Lab Routine Vitamin B1 deficiency 06/05/2025 4:13 PM CDT Scheduled Orders Name Type Priority Associated Diagnoses [...] (H) Expected: 11/13/2025 (Approximate), Expires: 05/15/2026 C-Telopeptide, Pptk-Jgvmk-Jipirw Lab Routine Compression fracture of T12 vertebra, sequela Osteoporotic compression fracture of spine, with routine healing, subsequent encounter Age-related osteoporosis with current pathological fracture, vertebra(e), initial encounter for fracture (H) Expected: 11/13/2025 (Approximate), Expires: 05/15/2026 Vitamin B1 plasma Lab Routine Vitamin B1 deficiency Expected: 05/18/2025 (Approximate), Expires: 05/18/2026 documented as of this encounter Goals Goal [...] documented in this encounter Results * (ABNORMAL) CBC with platelets and differential [...] LAB - BLOOD ORDERABLES Ashly l Result LABORATORY [address] [phone] * (ABNORMAL) Vitamin D Deficiency (05/15/2025 1:44 PM CDT) Pathologist [facility] Vitamin D, Total (25-Hydroxy) 77(H) 20 - 50 ng/mL 05/16/2025 12:22 PM CDT [facility] Comment:indicates supplement ation, with increased risk of hypercalciuria Blood BLOOD SPECIMEN / Unknown Venipuncture / Unknown 05/15/2025 1:44 PM CDT 05/15/2025 1:47 PM CDT Narrative [facility] - 05/16/2025 12:22 PM CDT Season, race, dietary intake, and treatment affect the concentration of 01-galukhj-Ndrfpwd D. Values may decrease during winter months and increase during summer months. Vitamin D determination is routinely performed by an immunoassay specific for 25 hydroxyvitamin D3. If an individual is on vitamin D2(ergocalciferol) supplementation, please specify 25 [place] vitamin D2 and D3 level determination by LCMSMS test VITD23. Omar Carmona MD LAB - BLOOD ORDERABLES Ashly l Result [facility] [place] [facility] [address] [facility], [address] [place] [address], [facility] * TSH with free T4 reflex (05/15/2025 1:44 PM CDT) TSH 1.27 0.30 - 4.20 uIU/mL 05/15/2025 2:18 PM CDT [facility] Blood BLOOD SPECIMEN / Unknown Venipuncture / Unknown 05/15/2025 1:44 PM CDT 05/15/2025 1:47 PM CDT us Omar Carmona MD LAB - BLOOD ORDERABLES Ashly rivera Result [facility] [address], [place] [address], [facility] * (ABNORMAL) Comprehensive metabolic panel (BMP + [...] LAB - BLOOD ORDERABLES Ashly l Result LABORATORY [address] [phone] * Parathyroid Hormone Intact (05/15/2025 1:44 PM [...] differs from PTH assays used in other [facility] laboratories. Marquise Hanley MD LAB - BLOOD ORDERABLES Final Result [facility] [address] [facility] [address], [address] [place] [address], [facility] documented in this encounter Visit Diagnoses [...] documented as of this encounter Care Teams Medical Observer Relationship Specialty Start Date End Date Omar Carmona MD [address] [place] [address] PCP - General Family Medicine 07/14/24 Barry Kilpatrick MD [address] [place] [address] [id number] [place], [place] [phone] Neurology 07/19/14 Michelle Henderson I, RN Nurse Coordinator Neurology 07/19/14 Rio Jaquez MD [address] [place] [address] Family Practice 10/15/14 Jemima Jaramillo MD [address] [place] [address] 90723 yacht captain 11/20/14 Kelley Chin, TANIA [address] 738395 Nurse Coordinator Cardiology 11/04/15 Sydnee Saleem MD [address] [place] [address] [address] [place], [place] 498175 Cardiology 11/04/15 Karlene Moya MD [address] [place] [address] [phone] Ophthalmology 06/24/17 Wilbert Quintero OD [address] [place] [address] 034975 Optometry 06/24/17 Rod Gauthier DPM [address] [place] [address] [phone] Simulation Analyst Primary Podiatric Medicine 06/21/18 Jan Mahmood MD [address] [place] [address] 227315 Gastroenterology 11/05/20 Brandt Quintana MD [address] [place] [address] Resident 11/05/20 Jan Mahmood MD [address] [place] [address] 23483 Assigned Gastroenterology Provider 12/01/20 Dom Eason MD [address] [phone] Internal Medicine 12/02/20 Yovani Vernon, RN Specialty Wireless Team Member Cardiology 10/28/21 Marquise Hanley MD [address] [place] [address] [phone] Endocrinology, Diabetes, and Metabolism 03/05/22 Vlad Ramey MD [address] [place] [address] 32731 Cardiovascular Disease 05/07/22 Joesph Crowe MD [address] [place] [address] 73090 Surgery 05/07/22 Michelle Padilla, RN Specialty Wireless Team Member Cardiology 07/03/22 Marquise Hanley MD [address] [place] [address] 70215 Assigned Endocrinology Provider 08/15/22 Wagner Oliver MD [address] [place] [address] Critical Care 12/15/22 Joesph Crowe MD [address] [place] [address] 64918 Surgery 03/17/23 Adonay Haq MD [address] [place] [address] Internal Medicine 06/14/23 Ruth Riddle DPM, Podiatry/Foot and Ankle Surgery [address] [place] [address] Assigned Musculoskeletal Provider 10/22/23 Jignesh Mathias MD [address] [place] [address] 158275 Gastroenterology 09/25/24 Omar Carmona MD [address] [place] [address] 55455 Assigned PCP 12/29/24 Jason Alvares MD [address] [place] [address] Assigned Neuroscience Provider 12/29/24 Jignesh Mathias MD [address] [place] [address] Assigned Surgical Provider 12/29/24 Ayad Lopez, PhD LP [address] [place] [address] Assigned Behavioral Health Provider 02/28/25 Gavi Nieto, PA-C [address] [place] [address] Physician Junior Sales Representative Dermatology 03/19/25 documented as of this encounter
--- OUTSIDE RECORDS SUMMARY | 2025-05-16 11:00 | XMS_ITS | Encounter Summary ---
Author Organization [facility] Address [address] [place] [address] Care Team Providers Care Coat Fitter Name Role Phone Barry Kilpatrick MD Unavailable Michelle Henderson RN Unavailable [phone] Rio Jaquez MD Unavailable [phone] Jemima Jaramillo MD Unavailable Unavai Kelley Bautista RN Unavailable [phone] Sydnee Saleem MD Unavailable [phone] Karlene Moya MD Unavailable [phone] Wilbert Quintero OD Unavailable [phone] Rod Gauthier DPM Unavailable [phone] Jan Mahmood MD Unavailable [phone] Brandt Quintana MD Unavailable Jan Mahmood MD Unavailable [phone] Dom Eason MD Unavailable [phone] Jaimie Vernon RN Unavailable Unavailable Marquise Hanley MD Unavailable [phone] Vlad Ramey MD Unavailable [phone] Joesph Crowe MD Unavailable Michelle Padilla RN Unavailable Unavaila ble Marquise Hanley MD Unavailable Wagner [place] MD Unavailable [phone] Joesph Crowe MD Unavailable Adonay Haq MD Unavailable [phone] Ruth Riddle DPM, Podiatry /Foot and Ankle Surgery Unavailable Omar Carmona MD Primary Care Provider [phone] Jignesh Mathias MD Unavailable Omar Carmona MD Unavailable Jason Alvares MD Unavailable Jignesh Mathias MD Unavailable Ayad Lopez PhD LP Unavailable Gavi Nieto PA-C Unavailable [phone] Reason for Visit * Rehab Therapy Occupational Therapy (Routine: Next available opening) - Authorized Specialty Diagnoses / Procedures Referred By Contjackelin t Referred To Contact Occupational Therapy Diagnoses Seizures, post-traumatic (H) [address] [address] Phone: tel: Referral ID Status Reason Start Date Expiration Date V isits Requested Visits Authorized [id number] Authorized 01/09/2025 08/08/2025 60 60 Encounter Details Date Type Department Care Team (Late st Contact Info) Description 05/16/2025 11:00 AM CDT Therapy Visit [address] [address] Jason Alvares MD [address] [place] [address] Chaya Castillo, [facility]TR [facility] 150 [facility] [place] [address] Seizures, post-traumatic (H) (Primary Dx) Social History [...] Answer Date Recorded PHQ-2 Score 2 05/03/2025 [facility] of Occupat ional Health - [...] in an overnight long-term, or couch-surfing.) Yes 04/30/2025 Are you worried [...] Sex Assigned at Female 09/12/2020 12:05 PM MRI TECHNICIAN Legal Sex Female 3:26 AM MRI TECHNICIAN Gender Identity Female 09/12/2020 12:05 PM MRI TECHNICIAN Sexual Orientation Straight 12/19/2021 10 :44 AM CDT Occupation Industry Job Start Date Job End Date on disability for FMS Not on file Not on file Not on file disabled Not on file Not on file Not on file documented as of this encounter Plan of Treatment Upcoming Encounters Date Type Department Care Team (Late st Contact Info) Description 06/13/2025 6:00 PM MRI TECHNICIAN Ancillary Procedure [facility] CT Clinic [address] [address] Omar Carmona MD [address] [place] [address] 726155 06/14/2025 4:00 PM MRI TECHNICIAN Office Visit [facility] [address] [place] [address] Omar Carmona MD [address] [place] [address] 06/15/2025 12:45 PM MRI TECHNICIAN [facility] 150 [facility] [place] [phone] Jason Alvares MD [address] [place] [address] Chaya Castillo OTR [facility] 150 [place] [address] 06/19/2025 10:30 AM MRI TECHNICIAN Virtual Visit [facility] [address] [place] [address] 4th [place] [phone] Omar Carmona MD [address] [place] [address] 840365 Gerson Santos [facility] 06/26/2025 11:00 AM MRI TECHNICIAN Therapy Visit [facility] 150 [place] [phone] Jason Alvares MD [address] [place] [address] Chaya Castillo OTR [facility] 150 [place] [address] 07/09/2025 12:45 PM MRI TECHNICIAN [facility] 150 [place] [phone] Jason Alvares MD [address] [place] [address] Chaya Castillo OTR [facility] 150 [place] [address] 07/18/2025 3:00 PM MRI TECHNICIAN Office [facility] Heart [address] [phone] Adonay Chapman APRN [facility] 500 [place] [address] 11/05/2025 12:[address] [facility] Lab [address] [place] [phone] 11/05/2025 1:45 PM CDT Office Visit [facility] Dermatology [address] [place] [phone] Gavi Nieto PAJimmy Dermatology [address] [place] [address] [phone] 11/20/2025 10:30 AM CDT Virtual Visit [address] [phone] Marquise Hanley MD [address] [place] [address] 540205 documented as of this encounter Goals Goal [...] documented as of this encounter Care Teams Coat Fitter Relationship Specialty Start Date End Date Omar Carmona MD [address] [place] [address] [phone] PCP - General Family Medicine 07/14/24 Barry Kilpatrick MD 9 [facility] [id number] [place], [place] 708965 Neurology 07/19/14 Michelle Henderson I, RN Nurse Coordinator Neurology 07/19/14 Rio Jaquez MD [address] [place] [address] 4 [place], [place] 029625 Family Practice 10/15/14 Jemima Jaramillo MD [address] [place] [address] 4 [place] [address] high school computer science teacher 11/20/14 Kelley Chin RN [address] 350495 Nurse Coordinator Cardiology 11/04/15 Sydnee Saleem MD 420 [facility] 508 [place], [place] 719855 Cardiology 11/04/15 Karlene Moya MD [address] [place] [address] 913785 Ophthalmology 06/24/17 Wilbert Quintero, OD [address] [place] [address] 569225 Optometry 06/24/17 Rod Gauthier, BILLY [address] [place] [address] [phone] Chef Head Primary Podiatric Medicine 06/21/18 Jan Mahmood MD 516 [facility] [place] [address] Gastroenterology 11/05/20 Brandt Quintana MD 1414 [place] [address] Resident 11/05/20 Jan Mahmood MD 516 [facility] [place] [address] Assigned Gastroenterology Provider 12/01/20 Dom Eason MD [address] [address] Internal Medicine 12/02/20 Jaimie Vernon, RN Specialty Thermometer Maker Cardiology 10/28/21 Marquise Hanley MD [address] [place] [address] Endocrinology, Diabetes, and Metabolism 03/05/22 Vlad Ramey MD [address] [place] [address] Cardiovascular Disease 05/07/22 Joesph Crowe MD [address] [place] [address] Surgery 05/07/22 Michelle Padilla, RN Specialty Thermometer Maker Cardiology 07/03/22 Marquise Hanley MD [address] [place] [address] Assigned Endocrinology Provider 08/15/22 Wagner [place] MD [address] [place] [address] Critical Care 12/15/22 Joesph Crowe MD [address] [place] [address] Surgery 03/17/23 Adonay Haq MD [address] [place] [address] 158095 Internal Medicine 06/14/23 Ruth Riddle DPM, Podiatry/Foot and Ankle Surgery [address] [place], [place] 802317 Assigned Musculoskeletal Provider 10/22/23 Jignesh Mathias MD [address] [place] [address] 989225 Gastroenterology 09/25/24 Omar Carmona MD [address] [place] [address] 243115 Assigned PCP 12/29/24 Jason Alvares MD [address] [place] [address] [phone] Assigned Neuroscience Provider 12/29/24 Jignesh Mathias MD [address] [place] [address] Assigned Surgical Provider 12/29/24 Ayad Lopez, PhD LP [address] [place] [address] 537215 Assigned Behavioral Health Provider 02/28/25 Gavi Nieto PA-C [address] [place] [address] 708275 Physician Diesel Retrofit Installer Dermatology 03/19/25 documented as of this encounter
--- OUTSIDE RECORDS SUMMARY | 2025-05-28 10:15 | XMS_ITS | Encounter Summary ---
Author Organization [facility] Address [address] [place] [address] Care Team Providers Care Sand Screener Operator Name Role Phone Barry Kilpatrick MD Unavailable Michelle Henderson RN Unavailable [phone] Rio Jqauez MD Unavailable [phone] Jemima Jaramillo MD Unavailable Unavai Kelley Bautista RN Unavailable [phone] Sydnee Saleem MD Unavailable [phone] Karlene Moya MD Unavailable [phone] Wilbert Quintero OD Unavailable [phone] Rod Gauthier DPM Unavailable [phone] Jan Mahmood MD Unavailable [phone] Brandt Quintana MD Unavailable Jan Mahmood MD Unavailable [phone] Dom Eason MD Unavailable [phone] Jaimie Vernon RN Unavailable Unavailable Marquise Hanley MD Unavailable [phone] Vlad Ramey MD Unavailable [phone] Joesph Crowe MD Unavailable Michelle Padilla RN Unavailable Unavaila ble Marquise Hanley MD Unavailable Wagner Oliver MD Unavailable [phone] Joesph Crowe MD Unavailable Adonay Haq MD Unavailable Ruth Riddle DPM, Podiatry /Foot and Ankle Surgery Unavailable Omar Carmona MD Primary Care Provider Jignesh Mathias MD Unavailable Omar Carmona MD Unavailable [phone] Jason Alvares MD Unavailable Jignesh Mathias MD Unavailable Ayad Lopez PhD LP Unavailable Gavi Nieto PA-C Unavailable [phone] Reason for Visit * Rehab Therapy Occupational Therapy (Routine: Next available opening) - Authorized Specialty Diagnoses / Procedures Referred By Contjackelin t Referred To Contact Occupational Therapy Diagnoses Seizures, post-traumatic (H) [address] [address] Phone: tel: Referral ID Status Reason Start Date Expiration Date V isits Requested Visits Authorized [id number] Authorized 01/09/2025 08/08/2025 60 60 Encounter Details Date Type Department Care Team (Late st Contact Info) Description 05/28/2025 10:15 AM CDT Virtual Visit [address] [phone] Omar Carmona MD [address] [place] [address] Chaya Castillo, OTR [facility] 150 [facility] [place] [address] Seizures, post-traumatic (H) (Primary Dx) Social History [...] Answer Date Recorded PHQ-2 Score 2 05/03/2025 [facility] Occupat [...] in an abandoned building, in an overnight care home, or couch-surfing.) Yes 04/30/2025 Are you worried [...] Assigned at Female 09/12/2020 12:05 PM BUSINESS OBJECTS REPORT DEVELOPER Legal Sex Female 3:26 AM BUSINESS OBJECTS REPORT DEVELOPER Gender Identity Female 09/12/2020 12:05 PM BUSINESS OBJECTS REPORT DEVELOPER Sexual Orientation Straight 12/19/2021 10 :44 [...] st Contact Info) Description 06/13/2025 6:00 PM BUSINESS OBJECTS REPORT DEVELOPER Ancillary Procedure [address] [place] [address] Omar Carmona MD [address] [place] [address] 036365 06/14/2025 4:00 PM BUSINESS OBJECTS REPORT DEVELOPER Office Visit [facility] Primary Care [address] [phone] Omar Carmona MD [address] [place] [address] 625935 06/15/2025 12:45 PM BUSINESS OBJECTS REPORT DEVELOPER [facility] 150 [place] [phone] Jason Alvares MD [address] [place] [address] 301125 Chaya Castillo OTR [facility] 150 [place], [place] 106037 06/19/2025 10:30 AM BUSINESS OBJECTS REPORT DEVELOPER Virtual Visit [facility] Care [address] [phone] Omar Carmona MD [address] [place] [address] 482365 Gerson Santos Kofi 06/26/2025 11:00 AM BUSINESS OBJECTS REPORT DEVELOPER Therapy [facility] 150 [facility] [place] [phone] Jason Alvares MD [address] [place] [address] 819315 Chaya Castillo OTR [facility] 150 [place], [place] 892887 07/09/2025 12:45 PM BUSINESS OBJECTS REPORT DEVELOPER Therapy Visit [facility] Rehabilitation Services [facility] 150 [place] [phone] Jason Alvares MD 420 [facility] 295 [place] [address] Chaya Castillo, OTR [facility] 150 [place] [address] 07/18/2025 3:00 PM BUSINESS OBJECTS REPORT DEVELOPER Office Visit [facility] Heart [address] [phone] Adonay Chapman APRN [facility] 500 [place], [place] 607635 11/05/2025 12:30 PM CDT Lab [facility] Lab [address] [place] [phone] 11/05/2025 1:45 PM CDT Office Visit [facility] Dermatology [address]rd [place] [phone] Gavi Nieto PANavinC Dermatology [address] [place] [address] 11/20/2025 10:30 AM CDT Virtual Visit [address] [address] Marquise Hanley MD [address] [place] [address] 347585 documented as of this encounter Goals Goal [...] as of this encounter Care Teams Sand Screener Operator Relationship Specialty Start Date End Date Omar Carmona MD [address] [place] [address] 671005 PCP - General Family Medicine 07/14/24 Barry Kilpatrick MD [address] [place] [address] [id number] [place], [place] 776755 Neurology 07/19/14 Michelle Henderson RN Nurse Coordinator Neurology 07/19/14 Rio Jaquez MD [address] [place] [address] 428825 Family Practice 10/15/14 Jemima Jaramillo MD [address] [place] [address] 26112 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 machine 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 11/20/14 Kelley Chin, TANIA [address] 020635 Nurse Coordinator Cardiology 11/04/15 Sydnee Saleem MD [address] [place] [address] 508 [place], [place] 206645 Cardiology 11/04/15 Karlene Moya MD [address] [place] [address] 163655 Ophthalmology 06/24/17 Wilbert Quintero OD [address] [place] [address] 8[address]18 Optometry 06/24/17 Rod Gauthier DPM [address] [place] [address] 43252 Customer Support Agent Primary Podiatric Medicine 06/21/18 Jan Mahmood MD [address] [place] [address] 212785 Gastroenterology 11/05/20 Brandt Quintana MD [address] [place] [address] Resident 11/05/20 Jan Mahmood MD [address] [place] [address] 45[address] Assigned Gastroenterology Provider 12/01/20 Dom Eason MD [address] [address] [address] Internal Medicine 12/02/20 Jaimie Vernon, RN Specialty Silverware Washer Cardiology 10/28/21 Marquise Hanley MD [address] [place] [address] 557415 Endocrinology, Diabetes, and Metabolism 03/05/22 Vlad Ramey MD [address] [place] [address] 884515 Cardiovascular Disease 05/07/22 Joesph Crowe MD [address] [place] [address] 09621 Surgery 05/07/22 Michelle Padilla, RN Specialty Silverware Washer Cardiology 07/03/22 Marquise Hanley MD [address] [place] [address] 02347 Assigned Endocrinology Provider 08/15/22 Wagner Oliver MD [address] [place] [address] Critical Care 12/15/22 Joesph Crowe MD [address] [place] [address]79 Surgery 03/17/23 Adonay Haq MD [address] [place] [address] 00141 Internal Medicine 06/14/23 Ruth Riddle DPM, Podiatry/Foot and Ankle Surgery [address] [address] Assigned Musculoskeletal Provider 10/22/23 Jignesh Mathias MD [address] [place] [address] 8[address]77 Gastroenterology 09/25/24 Omar Carmona MD [address] [place] [address] 39899 Assigned PCP 12/29/24 Jason Alvares MD 420 [facility] 295 [place] [address] Assigned Neuroscience Provider 12/29/24 Jignesh Mathias MD [address] [place] [address] 953875 Assigned Surgical Provider 12/29/24 Ayad Lopez, PhD LP [address] [place] [address] 776025 Assigned Behavioral Health Provider 02/28/25 Gavi Nieto PANavinC 500 [place], [place] 279285 Physician Project Intern Dermatology 03/19/25 documented as of this encounter
--- OUTSIDE RECORDS SUMMARY | 2025-06-05 15:00 | XMS_ITS | Encounter Summary ---
Author Organization [facility] Address [address] [place] [address] 41772 Care Team Providers Care Diecast Machine Operator Name Role Phone Barry Kilpatrick MD Unavailable Michelle Henderson RN Unavailable [phone] Rio Jaquez MD Unavailable [phone] Jemima Jaramillo MD Unavailable Unavai Kelley Bautista RN Unavailable [phone] Sydnee Saleem MD Unavailable [phone] Karlene Moya MD Unavailable [phone] Wilbert Quintero OD Unavailable [phone] Rod Gauthier DPM Unavailable [phone] Jan Mahmood MD Unavailable [phone] Brandt Quinatna MD Unavailable [phone] Jan Mahmood MD Unavailable [phone] Dom Eason MD Unavailable [phone] Jaimie Vernon RN Unavailable Unavailable Marquise Hanley MD Unavailable +[phone] Vlad Ramey MD Unavailable [phone] Joesph Crowe MD Unavailable [phone] Michelle Padilla RN Unavailable Unavaila ble Marquise Hanley MD Unavailable Wagner Oliver MD Unavailable [phone] Joesph Crowe MD Unavailable [phone] Adonay Haq MD Unavailable [phone] Ruth Riddle DPM, Podiatry /Foot and Ankle Surgery Unavailable Omar Carmona MD Primary Care Provider Jignesh Mathias MD Unavailable Omar Carmona MD Unavailable Jason Alvares MD Unavailable Jignesh Mathias MD Unavailable Ayad Lopez PhD LP Unavailable Gavi Nieto PA-C Unavailable [phone] Reason for Visit * Rehab Therapy Occupational Therapy (Routine: Next available opening) - Authorized Specialty Diagnoses / Procedures Referred By Contjackelin t Referred To Contact Occupational Therapy Diagnoses Seizures, post-traumatic (H) [address] [address] Phone: tel: Referral ID Status Reason Start Date Expiration Date V isits Requested Visits Authorized [id number] Authorized 01/09/2025 08/08/2025 60 60 Encounter Details Date Type Department Care Team (Late st Contact Info) Description 06/05/2025 3:00 PM CDT Therapy Visit [address] [address] Jason Alvares MD [address] [place] [address] 295 [place], [place] [phone] Chaya Castillo, OTR [facility] DEN[place] [address] [facility] [place] [address] Seizures, post-traumatic (H) (Primary Dx) Social History [...] Answer Date Recorded PHQ-2 Score 2 05/03/2025 [facility] - [...] Sex Assigned at Female 09/12/2020 12:05 PM PHOTORESIST PRINTER Legal Sex Female 3:26 AM PHOTORESIST PRINTER Gender Identity Female 09/12/2020 12:05 PM PHOTORESIST PRINTER Sexual Orientation Straight 12/19/2021 10 :44 AM CDT Occupation Industry Job Start Date Job End Date on disability for FMS Not on file Not on file Not on file disabled Not on file Not on file Not on file documented as of this encounter Progress Notes * Chaya Castillo, OTR - 06/05/2025 4:06 PM CDT [facility] OUTPATIENT OCCUPATIONAL THERAPY PLAN OF TREATMENT FOR OUTPATIENT REHABILITATION Patient's Last Name, First Name, Carol Mcdonnell Date of : 1970 Provider's Name [facility] Onset Date: 12/04/24 (referral date) Start [...] Chaya Castillo OTR/L Visits Used 11 - [facility]; MEDICARE Medical Diagnosis Dx: R56.1 (ICD-10-CM) [...] 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 Completed [employer] part 1 numerical reasoning task with 100% [...] for bilateral hand coordination and strength of phlebotomy tech/pinch. 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 [place] SET numerical reasoning problems are getting easier [...] on 01/16/25. Objective Measure 2 Objective Measure Electronic Scale Subassembler/pinch strength Details As of 04/12/25 - R dominant hand: 57# phlebotomy tech strength (59,56; was 48#), 13# lateral pinch (was 10#), 11# palmar pinch (was 10#). L nondominant hand: 40.5# phlebotomy tech strength (51,30; was 23), 13# lateral pinch [...] Management Self-Care/Home Mgmt/ADL, Compensatory, Meal Prep Minutes ([id number]) 45 Minutes Self Care 1 configuration management specialist skills, compensatory strategies Self Care 1 - [...] She had difficulty with time-management/timetracking and ignoring academic administrator's questions. Provided positive feedback on using [...] in compensatory strategies and facilitation of financial recording clerk tasks to promote IND with ADLs/IADLs Patient [...] WCPA level II (tried level I 06/05/25), [employer] part 2. Total Session Time Timed [...] st Contact Info) Description 06/13/2025 6:00 PM PHOTORESIST PRINTER Ancillary Procedure [facility] [address] [place] [phone] Omar Carmona MD [address] [place] [address] 786555 06/14/2025 4:00 PM PHOTORESIST PRINTER Office Visit [facility] [address]th [place] [phone] Omar Carmona MD [address] [place] [address] 06/15/2025 12:45 PM PHOTORESIST PRINTER Therapy Visit [facility] [address] [place] [phone] Jason Alvares MD [address] [place] [address] 295 [place], [place] 359[address] Chaya Castillo OTR [facility] 150 [place] [address] 06/19/2025 10:30 AM PHOTORESIST PRINTER Virtual Visit [facility] [address] [place] [address] 4th [place] [phone] Omar Carmona MD [address] [place] [address] 024485 Gerson Santos, [facility] 06/26/2025 11:00 AM PHOTORESIST PRINTER Therapy Visit [address] [phone] Jason Alvares MD [address] [place] [address] [phone] Chaya Castillo OTR [facility] 150 [place] [address] 07/09/2025 12:45 PM PHOTORESIST PRINTER Therapy Visit [address] [phone] Jason Alvares MD [address] [place] [address] 596385 [facility] [address] [place] [address] 07/18/2025 3:00 PM PHOTORESIST PRINTER Office [facility] [address] [phone] Adonay Chapman APRN [address] 695655 11/05/2025 12:30 PM CDT Lab [place] [address] 1st [place] [phone] 11/05/2025 1:45 PM CDT Office Visit [facility] [address] [place] [phone] Gavi Nieto PA-C Dermatology [address] [place] [address] 11/20/2025 10:30 AM CDT Virtual Visit [address] [place] [phone] Marquise Hanley MD [address] [place] [address] documented as of this encounter Goals Goal [...] documented as of this encounter Care Teams Diecast Machine Operator Relationship Specialty Start Date End Date Omar Carmona MD [address] [place] [address] PCP - General Family Medicine 07/14/24 Barry Kilpatrick MD [address] [place] [address] [id number] [place] [address] Neurology 07/19/14 Michelle Henderson I, RN Nurse Coordinator Neurology 07/19/14 Rio Jaquez MD [address] [place] [address] 826975 Family Practice 10/15/14 Jemima Jaramillo MD [address] [place] [address] buddhist monk 11/20/14 Kelley Chin RN [address] [phone] Nurse Coordinator Cardiology 11/04/15 Sydnee Saleem MD [address] [place], [place] [address] [place], [place] 005105 Cardiology 11/04/15 Karlene Moya MD [address] [place] [address] 027175 Ophthalmology 06/24/17 Wilbert Quintero, OD [address] [place] [address] 024895 Optometry 06/24/17 Rod Gauthier DPM [address] [place] [address] 708635 Supervisor [employer] Primary Podiatric Medicine 06/21/18 Jan Mahmood MD [address] [place] [address] Gastroenterology 11/05/20 Brandt Quintana MD [address] [place] [address] Resident 11/05/20 Jan Mahmood MD [address] 748405 Assigned Gastroenterology Provider 12/01/20 Dom Eason MD [address] 949684 Internal Medicine 12/02/20 Jaimie Vernon, RN Specialty Creative Coordinator Cardiology 10/28/21 Marquise Hanley MD [address] [place] [address] Endocrinology, Diabetes, and Metabolism 03/05/22 Vlad Ramey MD [address] [place] [address] 65994 Cardiovascular Disease 05/07/22 Joesph Crowe MD [address] [place] [address] 63619 MD Surgery 05/07/22 Michelle Padilla RN Specialty Creative Coordinator Cardiology 07/03/22 Marquise Hanley MD [address] [place] [address] Assigned Endocrinology Provider 08/15/22 Wagner Oliver MD [address] [place] [address] Critical Care 12/15/22 Joesph Crowe MD [address] [place] [address] 14143 Surgery 03/17/23 Adonay Haq MD [address] [place] [address] 21048 Internal Medicine 06/14/23 Ruth Riddle, DPM, Podiatry/Foot and Ankle Surgery [address] [address] Assigned Musculoskeletal Provider 10/22/23 Jignesh Mathias MD [address] [place] [address] 75047 Gastroenterology 09/25/24 Omar Carmona MD [address] [place] [address] 65[address] Assigned PCP 12/29/24 Jason Alvares MD [address] [place] [address] Assigned Neuroscience Provider 12/29/24 Jignesh aMthias MD [address] [place] [address]3583 Assigned Surgical Provider 12/29/24 Ayad Lopez, PhD LP [address] [place] [address] 371855 Assigned Behavioral Health Provider 02/28/25 Gavi Nieto, CAROLC [address] [place] [address] Physician Sports Marketing Internship Dermatology 03/19/25 documented as of this encounter
--- OUTSIDE RECORDS SUMMARY | 2025-06-05 16:15 | XMS_ITS | Encounter Summary ---
Author Organization [facility] Address [address] [place] [address] Care Team Providers Care Molder Name Role Phone Barry Kilpatrick MD Unavailable Michelle Henderson RN Unavailable [phone] Rio Jaquez MD Unavailable [phone] Jemima Jaramillo MD Unavailable Unavai Kelley Bautista RN Unavailable [phone] Sydnee Saleem MD Unavailable [phone] Karlene Moya MD Unavailable [phone] Wilbert Quintero OD Unavailable [phone] Rod Gauthier DPM Unavailable [phone] Jan Mahmood MD Unavailable [phone] Brandt Quintana MD Unavailable Jan Mahmood MD Unavailable [phone] Dom Eason MD Unavailable [phone] Jaimie Vernon RN Unavailable Unavailable Marquise Hanley MD Unavailable [phone] Vlad Ramey MD Unavailable [phone] Joesph Crowe MD Unavailable Michelle Padilla RN Unavailable Unavaila ble Marquise Hanley MD Unavailable [phone] Wagner Oliver MD Unavailable [phone] Joesph Crowe MD Unavailable Adonay Haq MD Unavailable [phone] Ruth Riddle DPM, Podiatry /Foot and Ankle Surgery Unavailable Omar Carmona MD Primary Care Provider [phone] Jignesh Mathias MD Unavailable Omar Carmona MD Unavailable [phone] Jason Alvares MD Unavailable Jignesh Mathias MD Unavailable Ayad Lopez PhD LP Unavailable [phone] Gavi Nieto PA-C Unavailable [phone] Encounter Details Date Type Department Care Team (Late st Contact Info) Description 06/05/2025 4:15 PM CDT Lab [facility] [address] [place] [address] Alcoholic cirrhosis of liver without [...] Answer Date Recorded PHQ-2 Score 2 05/03/2025 [facility] [...] in an overnight intermediate, or couch-surfing.) Yes 04/30/2025 Are you worried [...] Sex Assigned at Female 09/12/2020 12:05 PM AUTOMOTIVE COLLISION REPAIR INSTRUCTOR Legal Sex Female 3:26 AM AUTOMOTIVE COLLISION REPAIR INSTRUCTOR Gender Identity Female 09/12/2020 12:05 PM AUTOMOTIVE COLLISION REPAIR INSTRUCTOR Sexual Orientation Straight 12/19/2021 10 :44 AM CDT Occupation Industry Job Start Date Job End Date on disability for FMS Not on file Not on file Not on file disabled Not on file Not on file Not on file documented as of this encounter Plan of Treatment Upcoming Encounters Date Type Department Care Team (Late st Contact Info) Description 06/13/2025 6:00 PM AUTOMOTIVE COLLISION REPAIR INSTRUCTOR Ancillary Procedure [facility] [address] [phone] Omar Carmona MD [address] [place] [address] 988605 06/14/2025 4:00 PM AUTOMOTIVE COLLISION REPAIR INSTRUCTOR Office Visit [facility] [address] [phone] Omar Carmona MD [address] [place] [address] 015045 06/15/2025 12:45 PM AUTOMOTIVE COLLISION REPAIR INSTRUCTOR Therapy Visit [facility] [address] [phone] Jason Alvares MD [address] [place] [address] 191165 Chaya Castillo OTR [facility] [address] [place] [address] 06/19/2025 10:30 AM AUTOMOTIVE COLLISION REPAIR INSTRUCTOR Virtual Visit [facility] [address] [phone] Omar Carmona MD [address] [place] [address] [facility] 06/26/2025 11:00 AM AUTOMOTIVE COLLISION REPAIR INSTRUCTOR Therapy Visit [facility] [address] [place] [phone] Jason Alvares MD [address] [place] [address] Chaya Castillo, OTR [address] [address] 07/09/2025 12:45 PM AUTOMOTIVE COLLISION REPAIR INSTRUCTOR Therapy Visit [address] [phone] Jason Alvares MD [address] [place] [address] Chaya Castillo, OTR [address] [address] 07/18/2025 3:00 PM AUTOMOTIVE COLLISION REPAIR INSTRUCTOR Office Visit [facility] [address] [phone] Adonay Chapman APRN [address] [address] 11/05/2025 12:30 PM CDT Lab [facility] [address] [phone] 11/05/2025 1:45 PM CDT Office Visit [facility] [address] [place] [phone] Gavi Nieto PA-C Dermatology [address] [place] [address] 11/20/2025 10:30 AM CDT Virtual Visit [address] [place] [phone] Marquise Hanley MD 909 [place] [address] Pending Results Name Type Priority Associated Diagnoses Date /Time Vitamin B1 plasma Lab Routine Vitamin B1 deficiency 06/05/2025 4:13 PM CDT documented as of this encounter Goals Goal Patient Goal Type Associated Problems Recent Progress Patient-Stated? Author Quit smoking / using tobacco Lifestyle Rio Will MD Note: 06/25/14 planned quit date documented as of this encounter Procedures Procedure Name Priority Date/Time Associated Diagnosis Comments INR Routine 06/05/2025 4:13 PM CDT Alcoholic [...] (H) documented in this encounter Results * AFP tumor marker [[id number]] (06/05/2025 4:13 PM CDT) AFP tumor marker 2.5 <=8.3 ng/mL 06/06/2025 11:15 AM CDT [facility] Blood STRUCTURE OF RIGHT UPPER LIMB / Unknown Venipuncture / Unknown 06/05/2025 4:13 PM CDT 06/05/2025 4:14 PM CDT Narrative [facility] - 06/06/2025 11:15 AM CDT This result is obtained using the Maite Elecsys AFP method on the sharyn e801 immunoassay analyzer. Results obtained with different assay methods or kits cannot be used interchangeably. Reference ranges apply to non- females only. Jignesh Mathias MD LAB - BLOOD ORDERABLES Final Res ult [facility] [address] [facility], [address] [place] [address], [facility] * INR [[id number]] (06/05/2025 4:13 PM CDT) INR 1.10 0.85 - 1.15 06/05/2025 7:01 PM CDT [facility] PT 14.6 11.8 - 14.8 Seconds 06/05/2025 7:01 PM CDT [facility] Blood STRUCTURE OF RIGHT UPPER LIMB / Unknown Venipuncture / Unknown 06/05/2025 4:13 PM CDT 06/05/2025 4:14 PM CDT Jignesh Mathias MD LAB - BLOOD ORDERABLES Final Res ult [facility] [address] Lab (no room number, 1st floor of clinic) [place] [address], [facility] * (ABNORMAL) CBC with platelets [[id number]] (06/05/2025 4:13 PM CDT) WBC Count 6.59 4.00 - 11.00 10e3/uL [...] BLOOD ORDERABLES Final Res ult [facility] [address], [address] [place] [address], [facility] * Basic metabolic panel [LAB15] (06/05/2025 [...] 11:15 AM CDT [facility] Comment:eGFR calculated us2020 CKD-EPI equation. Calcium 9.7 8.8 - 10.4 mg/dL 06/06/2025 11:15 AM CDT [facility] Glucose 94 70 - 99 mg/dL 06/06/2025 11:15 AM CDT [facility] Blood STRUCTURE OF RIGHT UPPER LIMB / Unknown Venipuncture / Unknown 06/05/2025 4:13 PM CDT 06/05/2025 4:14 PM CDT us Jignesh Mathias MD LAB - BLOOD ORDERABLES Final Res ult [facility] [address] [facility], Room [address] [place] [phone] * (ABNORMAL) Hepatic Panel [LAB20] (06/05/2025 4:13 [...] BLOOD ORDERABLES Final Res ult [facility] [address] [facility] [address], Room [address]580 [place] [address] documented in this encounter Visit Diagnoses Diagnosis [...] as of this encounter Care Teams Molder Relationship Specialty Start Date End Date Omar Carmona MD [address] [place] [address] PCP - General Family Medicine 07/14/24 Barry Kilpatrick MD [address] [place] [address] [id number] [place] [address] Neurology 07/19/14 Michelle Henderson I, RN Nurse Coordinator Neurology 07/19/14 Rio Jaquez MD [address] [place] [address] Family Practice 10/15/14 Jemima Jaramillo MD [address] [place] [address]958 body straightener 11/20/14 Kelley Chin, TANIA [address] 438895 Nurse Coordinator Cardiology 11/04/15 Sydnee Saleem MD [address] [facility] 508 [place] [address] Cardiology 11/04/15 Karlene Moya MD [address] [place], [place] 187615 Ophthalmology 06/24/17 Wilbert Quintero OD 909 [place], [place] 454815 Optometry 06/24/17 Rod Gauthier DPM 9[address] [place], [place] 360615 Block Cleaner Primary Podiatric Medicine 06/21/18 Jan Mahmood MD [address] [place] [address] 176305 Gastroenterology 11/05/20 rBandt Quintana MD [address] [place] [address] Resident 11/05/20 Jan Mahmood MD [address] [facility] 2[address] [place] [address] Assigned Gastroenterology Provider 12/01/20 Dom Eason MD [address] [facility] 353 [place] [address] Internal Medicine 12/02/20 Jaimie Vernon, RN Specialty Housekeeper Child Care Cardiology 10/28/21 Marquise Hanley MD [address] [place] [address] Endocrinology, Diabetes, and Metabolism 03/05/22 Vlad Ramey MD [address] [place] [address] 88368 Cardiovascular Disease 05/07/22 Joesph Crowe MD [address] [place] [address] Surgery 05/07/22 Michelle Padilla RN Specialty Housekeeper Child Care Cardiology 07/03/22 Marquise Hanley MD [address] [place] [address] Assigned Endocrinology Provider 08/15/22 Wagner Oliver MD [address] [place] [address] Critical Care 12/15/22 Joesph Crowe MD [address] [place] [address] 41775 Surgery 03/17/23 Adonay Haq MD [address] [place] [address] Internal Medicine 06/14/23 Ruth Riddle DPM, Podiatry/Foot and Ankle Surgery [address] [place] [phone] Assigned Musculoskeletal Provider 10/22/23 Jignesh Mathias MD [address] [place] [address] 406835 Gastroenterology 09/25/24 Omar Carmona MD [address] [place] [address] 126645 Assigned PCP 12/29/24 Jason Alvares MD [address] [place] [address] [phone] Assigned Neuroscience Provider 12/29/24 Jignesh Mathias MD [address] [place] [address] 170565 Assigned Surgical Provider 12/29/24 Ayad Lpoez, PhD LP [address] [place] [address] 908955 Assigned Behavioral Health Provider 02/28/25 Gavi Nieto, PA-C [address] [place] [address] [phone] Physician Elevator Constructor Supervisor Dermatology 03/19/25 documented as of this encounter
--- OUTSIDE RECORDS SUMMARY | 2025-06-07 09:30 | XMS_ITS | Encounter Summary ---
Author Organization [facility] Address [address] [place] [address]109 Care Team Providers Care Sound Effects Supervisor Name Role Phone Barry Kilpatrick MD Unavailable Michelle Henderson RN Unavailable [phone] Rio Jaquez MD Unavailable [phone] Jemima Jaramillo MD Unavailable Unavai Kelley Bautista RN Unavailable [phone] Sydnee aSleem MD Unavailable [phone] Karlene Moya MD Unavailable [phone] Wilbert Quintero OD Unavailable +[phone] Rod Gauthier DPM Unavailable [phone] Jan Mahmood MD Unavailable [phone] Brandt Quintana MD Unavailable Jan Mahmood MD Unavailable [phone] Dom Eason MD Unavailable +[phone] Jaimie Vernon RN Unavailable Unavailable Marquise Hanley MD Unavailable +[phone] Vlad Ramey MD Unavailable +[phone] Joesph Crowe MD Unavailable Michelle Padilla RN Unavailable Unavaila ble Marquise Hanley MD Unavailable +[phone] Wagner Oliver MD Unavailable [phone] Joesph Crowe MD Unavailable [phone] Adonay Haq MD Unavailable [phone] Ruth RiddleM, Podiatry /Foot and Ankle Surgery Unavailable AngelaOmar nicholson MD Primary Care Provider [phone] Jignesh Mathias MD Unavailable Omar Carmona MD Unavailable Jason Alvares MD Unavailable Jignesh Mathias MD Unavailable Ayad Lopez PhD LP Unavailable Gavi Nieto-C Unavailable [phone] Reason for Visit * Diagnostic Imaging Ultrasound (Routine) - Pending Review Specialty Diagnoses / Procedures Referred By Good zhu Referred To Contact Radiology. Diagnoses Alcoholic cirrhosis of liver without ascites (H) Procedures US Abdomen Limited Jignesh Mathias MD [address] [place] [address] Phone: tel: fax: Referral ID Status Reason Start Date Expiration Date V isits Requested Visits Authorized [id number] Pending Review 12/05/2024 12/05/2025 1 1 Encounter Details Date Type Department Care Team (Latest Contact Info) Description 06/07/2025 9:30 AM CDT Ancillary Procedure [address] [place] [address] Jignesh Mathias MD [address] [place] [address] Alcoholic cirrhosis of liver without ascites [...] in an overnight detention, or couch-surfing.) Yes 04/30/2025 Are you worried [...] Sex Assigned at Female 09/12/2020 12:05 PM CERTIFIED PHYSICIAN ASSISTANT Legal Sex Female 3:26 AM CERTIFIED PHYSICIAN ASSISTANT Gender Identity Female 09/12/2020 12:05 PM CERTIFIED PHYSICIAN ASSISTANT Sexual Orientation Straight 12/19/2021 10 :44 AM CDT Occupation Industry Job Start Date Job End Date on disability for FMS Not on file Not on file Not on file disabled Not on file Not on file Not on file documented as of this encounter Plan of Treatment Upcoming Encounters Date Type Department Care Team (Late st Contact Info) Description 06/13/2025 6:00 PM CERTIFIED PHYSICIAN ASSISTANT Ancillary Procedure [facility] [address] [place] [phone] Omar Carmona MD [address] [place] [address] 06/14/2025 4:00 PM CERTIFIED PHYSICIAN ASSISTANT Office Visit [facility] [address] [place] [phone] Omar Carmona MD [address] [place] [address] 06/15/2025 12:45 PM CERTIFIED PHYSICIAN ASSISTANT Therapy Visit [facility] [place] [place] [address] Jason Alvares MD [address] [place] [address] [phone] Chaya Castillo, OTR [facility] [address] [place], [place] [address] 06/19/2025 10:30 AM CERTIFIED PHYSICIAN ASSISTANT Virtual Visit [facility] [address] [place] [address] 4th [place] [address] Omar Carmona MD [address] [place] [address] Gerson Santos [facility] 06/26/2025 11:00 AM CERTIFIED PHYSICIAN ASSISTANT [facility] [address] [place] [phone] Jason Alvares MD [address] [place] [address] 158315 Chaya Castillo, OTR [facility] [address] [place] [address] 07/09/2025 12:45 PM CERTIFIED PHYSICIAN ASSISTANT Therapy [facility] [address] [place] [phone] Jason Alvares MD [address] [place] [address] 147005 Chaya Castillo, OTR [facility] [address] [place] [address] 07/18/2025 3:00 PM CERTIFIED PHYSICIAN ASSISTANT Office Visit [facility] [address] [phone] Adonay Chapman APRN [employer] TEACHER [address] [place], [place] [address]325 11/05/2025 12:30 PM CDT Lab [facility] [address] [phone] 11/05/2025 1:45 PM CDT Office Visit [facility] [address] [place] [phone] Gavi Nieto PA-C Dermatology [address] [place] [address] [id number] 11/20/2025 10:30 AM CDT Virtual Visit [address] [place] [address] Marquise Hanley MD [address] [place] [address] documented as of this encounter Goals Goal [...] follow-up. *Recommendations above based on LI-RADS? v2024: https://www.acr.org/Clinical-Resources/Aixpzzme-Kqfdp-oar-Reference/Re sawyqy-zls-Llxk-Systems/LI-RADS LASHAUN FINLEY DO Narrative 06/08/2025 9:40 AM [...] follow-up. *Recommendations above based on LI-RADS? v2024: https://www.acr.org/Clinical-Resources/Lmjzmeub-Ponyv-mlg-Reference/Re wvqtby-vhp-Wdfl-Systems/LI-RADS LASHAUN FINLEY DO us Jignesh Mathias MD [...] documented as of this encounter Care Teams Sound Effects Supervisor Relationship Specialty Start Date End Date Omar Carmona MD 9 [place], [place] 348925 PCP - General Family Medicine 07/14/24 Barry Kilpatrick MD [address] [place] [address] [id number] [place], [place] 470615 Neurology 07/19/14 Michelle Henderson I, RN Nurse Coordinator Neurology 07/19/14 Rio Jaquez MD [address] [place] [address] 272165 Family Practice 10/15/14 Jemima Jaramillo MD [address] [place] [address] 4 [place] [address] exterminator helper termite 11/20/14 Kelley Chin, TANIA [address] 280315 Nurse Coordinator Cardiology 11/04/15 Sydnee Saleem MD [address] [place] [address] 508 [place] [address] Cardiology 11/04/15 Karlene Moya MD [address] [place] [address] Ophthalmology 06/24/17 Wilbert Quintero OD [address] [place] [address] 97516 Optometry 06/24/17 Rod Gauthier DPM [address] [place] [address] 12697 Train Control Electronic Technician Primary Podiatric Medicine 06/21/18 Jan Mahmood MD [address] [place] [address] Gastroenterology 11/05/20 Brandt Quintana MD [address] [place] [address] Resident 11/05/20 Jan Mahmood MD [address] [place] [address] 64231 Assigned Gastroenterology Provider 12/01/20 Dom Eason MD [address] [place] [address] 54500 Internal Medicine 12/02/20 Jaimie Vernon, RN Specialty Suspender Cutter Cardiology 10/28/21 Marquise Hanley MD [address] [place] [address] 90293 Endocrinology, Diabetes, and Metabolism 03/05/22 Vlad Ramey MD [address] [place] [address] 11220 Cardiovascular Disease 05/07/22 Joesph Crowe MD [address] [place] [address] 12297 Surgery 05/07/22 Michelle Padilla, RN Specialty Suspender Cutter Cardiology 07/03/22 Marquise Hanley MD [address] [place] [address] 07357 Assigned Endocrinology Provider 08/15/22 Wagner Oliver MD [address] [place] [address] Critical Care 12/15/22 Joesph Crowe MD [address] [place] [address] 34317 Surgery 03/17/23 Adonay Haq MD [address] [place] [address] 53765 Internal Medicine 06/14/23 Ruth Riddle DPM, Podiatry/Foot and Ankle Surgery [address] [place] [address] Assigned Musculoskeletal Provider 10/22/23 Jignesh Mathias MD [address] [place] [address] 97295 Gastroenterology 09/25/24 Omar Carmona MD [address] [place] [address] 832875 Assigned PCP 12/29/24 Jason Alvares MD [address] [place] [address] 959255 Assigned Neuroscience Provider 12/29/24 Jignesh Mathias MD [address] [place] [address] 022355 Assigned Surgical Provider 12/29/24 Ayad Lopez, PhD LP [address] [place] [address] 054095 Assigned Behavioral Health Provider 02/28/25 Gavi Nieto, PA-C [address] [place] [address] 274205 Physician Supervisor Evaporator Dermatology 03/19/25 documented as of this encounter
--- OUTSIDE RECORDS SUMMARY | 2025-06-08 09:00 | XMS_ITS | Encounter Summary ---
Author Organization [facility] Address [address] [place] [address] Care Team Providers Care Sales Negotiator Name Role Phone Barry Kilpatrick MD Unavailable Michelle Henderson RN Unavailable [phone] Rio Jaquez MD Unavailable [phone] Jemima Jaramillo MD Unavailable Unavai Kelley Bautista RN Unavailable [phone] Sydnee Saleem MD Unavailable [phone] Karlene Moya MD Unavailable [phone] Wilbert Quintero OD Unavailable [phone] Rod Gauthier DPM Unavailable [phone] Jan Mahmood MD Unavailable [phone] Brandt Quintana MD Unavailable Jan Mahmood MD Unavailable [phone] Dom Eason MD Unavailable [phone] Jaimie Vernon RN Unavailable Unavailable Marquise Hanley MD Unavailable [phone] Vlad Ramey MD Unavailable [phone] Joesph Crowe MD Unavailable Michelle Padilla RN Unavailable Unavaila ble Marquise Hanley MD Unavailable [phone] Wagner Oliver MD Unavailable + [phone] Joesph Crowe MD Unavailable Adonay Haq MD Unavailable [phone] Ruth RiddleM, Podiatry /Foot and Ankle Surgery Unavailable Omar Carmona MD Primary Care Provider [phone] Jignesh Mathias MD Unavailable Omar Carmona MD Unavailable [phone] Jason Alvares MD Unavailable Jignesh Mathias MD Unavailable Ayad Lopez PhD LP Unavailable [phone] Gavi Nieto-C Unavailable [phone] Reason for Referral * Diagnostic Imaging Ultrasound (Routine) - Pending Review Specialty Diagnoses / Procedures Referred By Good zhu Referred To Contact Radiology. Diagnoses Alcoholic cirrhosis of liver without ascites (H) Procedures US Abdomen Limited Jignesh Mathias MD [address] [place] [address] Phone: tel: fax: Referral ID Status Reason Start Date Expiration Date V isits Requested Visits Authorized [id number] Pending Review 06/08/2025 06/08/2026 1 1 Reason for Visit * Reason Comments RECHECK Follow up visit Encounter Details Date Type Department Care Team (Late st Contact Info) Description 06/08/2025 9:00 AM CDT Office Visit [facility] [address] [phone] Jignesh Mathias MD [address] [place] [address] Alcoholic cirrhosis of liver without ascites (H) [...] Answer Date Recorded PHQ-2 Score 2 05/03/2025 [facility] - [...] Sex Assigned at Female 09/12/2020 12:05 PM DIVIDEND CLERK Legal Sex Female 3:26 AM DIVIDEND CLERK Gender Identity Female 09/12/2020 12:05 PM DIVIDEND CLERK Sexual Orientation Straight 12/19/2021 10 :44 [...] followup in the Liver Clinic at the [facility] on June 08, 2025. Ms Kyle [...] of the encounter), including 20 minutes of xnvm-kf-kijq clinic time including counseling. The rest of the time was spent in documentation and review of records. Thank you very much for allowing me to participate in the care of this patient. If you have any questions regarding my recommendations, please do not hesitate to contact me. Sincerely, Jignesh Mathias MD gas appliance mechanic [employer] Executive Street Cleaner, Solid Organ Transplant Program [facility] [1] Current Outpatient Medications Medication Sig [...] st Contact Info) Description 06/13/2025 6:00 PM DIVIDEND CLERK Ancillary Procedure [facility] [address] [place] [phone] Omar Carmona MD [address] [place] [address] [id number] 06/14/2025 4:00 PM DIVIDEND CLERK Office Visit [facility] [address] [place] [phone] Omar Carmona MD [address] [place] [address] [phone] 06/15/2025 12:45 PM DIVIDEND CLERK Therapy Visit [facility] [address] [place] [phone] Jason Alvares MD [address] [place] [address] [address] [place], [place] 244015 Chaya Castillo, [facility] [address] [place] [address] 06/19/2025 10:30 AM DIVIDEND CLERK Virtual Visit [facility] [address] [place] [address] [address] [place] [phone] Omar Carmona MD [address] [place] [address] Gerson Santos, [facility] 06/26/2025 11:00 AM DIVIDEND CLERK Therapy Visit [facility] [address] [place] [phone] Jason Alvares MD [address] [place] [phone] Chaya Castillo, OTR [facility] [address] [place] [address] 07/09/2025 12:45 PM DIVIDEND CLERK Therapy Visit [facility] [address] [place] [phone] Jason Alvares MD [address] [place] [address] 544365 Chaya Castillo, OTR [facility] [address] [place] [address] 07/18/2025 3:00 PM DIVIDEND CLERK Office Visit [facility] [address] [phone] Adonay Chapman APRN [facility] [address] [place], [place] [address] 11/05/2025 12:30 PM CDT Lab [facility] [address] [phone] 11/05/2025 1:45 PM CDT Office Visit [facility] [place] [address] [facility] 3rd [place] [phone] Gavi Nieto PA-C Dermatology [address] [place] [address] 11/20/2025 10:30 AM CDT Virtual Visit [address] [place] [phone] Marquise Hanley MD [address] [place] [address] Scheduled Orders Name Type Priority Associated Diagnoses Orde r Schedule US Abdomen Limited Imaging Routine Alcoholic cirrhosis of liver without ascites (H) Expected: 12/06/2025 (Approximate), Expires: 06/08/2026 Hepatic Panel [LAB20] Lab Routine Alcoholic cirrhosis of liver without ascites (H) Expected: 12/05/2025, Expires: 06/08/2026 Basic metabolic panel [LAB15] Lab Routine Alcoholic cirrhosis of liver without ascites (H) Expected: 12/05/2025, Expires: 06/08/2026 CBC with platelets [VTF112] Lab Routine Alcoholic cirrhosis of liver without ascites (H) Expected: 12/05/2025, Expires: 06/08/2026 INR [[id number]] Lab Routine Alcoholic cirrhosis of liver without ascites (H) Expected: 12/05/2025, Expires: 06/08/2026 AFP tumor marker [[id number]] Lab Routine Alcoholic cirrhosis of liver without [...] documented as of this encounter Care Teams Sales Negotiator Relationship Specialty Start Date End Date Omar Carmona MD [address] [place] [address] PCP - General Family Medicine 07/14/24 Barry Kilpatrick MD [address] [place] [address] [id number] [place], [place] 275355 Neurology 07/19/14 Michelle Henderson I, RN Nurse Coordinator Neurology 07/19/14 Rio Jaquez MD [address] [place] [address] 213015 Family Practice 10/15/14 Jemima Jaramillo MD [address] [place] [address] transformation architect 11/20/14 Kelley Chin, TANIA [address] [phone] Nurse Coordinator Cardiology 11/04/15 Sydnee Saleem MD [address] [place] [address] [address] [place], [place] 357655 Cardiology 11/04/15 Karlene Moya MD [address] [place] [address] [phone] Ophthalmology 06/24/17 Wilbert Quintero, OD [address] [place] [address] Optometry 06/24/17 Rod Gauthier DPM [address] [place] [address] [phone] Malt Specifications Control Assistant Primary Podiatric Medicine 06/21/18 Jan Mahmood MD [address] [place] [address] Gastroenterology 11/05/20 Brandt Quintana MD [address] [place] [address] Resident 11/05/20 Jan Mahmood MD [address] [place] [address] Assigned Gastroenterology Provider 12/01/20 Dom Eason MD [address] [place] [address] [phone] Internal Medicine 12/02/20 Jaimie Vernon, RN Specialty Geometry Tutor Cardiology 10/28/21 Marquise Hanley MD [address] [place] [address] Endocrinology, Diabetes, and Metabolism 03/05/22 Vlad Ramey MD [address] [place] [address] 310405 Cardiovascular Disease 05/07/22 Joesph Crowe MD [address] [place] [address] [phone] Surgery 05/07/22 Michelle Padilla, RN Specialty Geometry Tutor Cardiology 07/03/22 Marquise Hanley MD [address] [place] [address] Assigned Endocrinology Provider 08/15/22 Wagner Oliver MD [address] [place] [address] Critical Care 12/15/22 Joesph Crowe MD [address] [place] [address] Surgery 03/17/23 Adonay Haq MD [address] [place] [address] Internal Medicine 06/14/23 Ruth Riddle DPM, Podiatry/Foot and Ankle Surgery [address] [place] [address] [address] Assigned Musculoskeletal Provider 10/22/23 Jignesh Mathias MD [address] [place] [address] Gastroenterology 09/25/24 Omar Carmona MD [address] [place] [address] Assigned PCP 12/29/24 Jason Alvares MD [address] [place] [address] Assigned Neuroscience Provider 12/29/24 Jignesh Mathias MD [address] [place] [address] Assigned Surgical Provider 12/29/24 Ayad Lopez, PhD LP [address] [place] [address] Assigned Behavioral Health Provider 02/28/25 Gavi Nieto PANavinC [address] [place] [address] Physician Lab Nurse Dermatology 03/19/25 documented as of this encounter
--- OUTSIDE RECORDS SUMMARY | 2025-06-08 21:26 | XMS_ITS | Encounter Summary ---
Author Organization [facility] Address [address] [place] [address] Care Team Providers Care District Attorney Name Role Phone Elsewhere, Pcp Primary Care Provider Unavailabl e Reason for Referral * Outpatient (Routine) - Authorized Specialty Diagnoses / Procedures Referred By Contjackelin t Referred To Contact Social Work Diagnoses Anomaly Heart Congenital (HCC) Bianca Baird L.I.C.S.W. [address] [place] [phone] Phone: tel: fax: [facility] Referral ID Status Reason Start Date Expiration Date V isits Requested Visits Authorized [id number] Authorized 05/08/2025 11/07/2026 1 1 Encounter Details Date Type Department Care Team (Late st Contact Info) Description 05/08/2025 Orders Only RST RO PAUL Bianca Baird L.I.C.S.W. [address] [place] [phone] Anomaly Heart Congenital (HCC) (Primary Dx) Social History Tobacco Use Types Packs/Day Years Used Date Smoking Tobacco: Every Day Cigarettes 0.5 40.9 Started: 08/09/1985 Passive Smoke Exposure: Never Smokeless Tobacco: Never Alcohol Use Standard Drinks/Week Comments Not Currently 0 (1 standard drink = 0.6 oz pur e alcohol) [facility] Utilities Answer Date Recorded In the past [...] Sex Assigned at Female 09/14/2023 4:26 PM DEVELOPMENT ASSOCIATE Legal Sex Female 11:56 AM DEVELOPMENT ASSOCIATE Gender Identity Female 09/14/2023 4:26 PM DEVELOPMENT ASSOCIATE Sexual Orientation Straight 09/14/2023 4: 26 PM DEVELOPMENT ASSOCIATE documented as of this encounter Plan of Treatment Scheduled Referrals Name Type Priority Associated Diagnoses Order Schedule Social Work - General consult (clinic) [facility]; Cardiovascular Disease; Congenital Heart Outpatient Referral Routine Anomaly Heart Congenital (HCC) Expected: 12/28/2025, Expires: 08/07/2026 documented as of this encounter Visit Diagnoses Diagnosis Anomaly Heart Congenital (HCC)- Primary documented in this encounter Additional Health Concerns Assessment Noted Time PHQ-9 Depression Total Score: 12 025 10:01 AM CDT documented as of this encounter Care Teams District Attorney Relationship Specialty Start Date End Date Elsewhere, Pcp PCP - General Internal Medicine 12/28/24 documented as of this encounter
--- OUTSIDE RECORDS SUMMARY | 2025-06-08 21:26 | XMS_ITS | Clinical Summary ---
Author Organization [facility] Address [address] [place] [address] Care Team Providers Care Tactical Air Defense Controller Name Role Phone Unavailable Primary Care Provider [...] Influenza Vaccine (#1) 2025 Insurance JASON MIGUEL [id number] Medicare [facility]
--- OUTSIDE RECORDS SUMMARY | 2025-06-08 21:27 | XMS_ITS | Clinical Summary ---
Author Organization [facility] Address [address] [place] [address] Care Team Providers Care Dermatology Nurse Name Role Phone Elsewhere, Pcp Primary Care Provider Unavailabl e Source Comments Patient records contain information from all sites at [facility]. For routine questions regarding patient records, call [phone] during business hours, M-F 8:00 AM - 5:00 PM Central Time. Record requests for emergency care only can be directed to [phone] at any time.[facility] Allergies Active Allergy Reactions Criticality Noted Date [...] 03/06/2016 Pertussis Vaccines Other (see comments) 010 Kgzhnvc-Cut-Zdf Reductase Inhibitors Nausea Only,Other (see comments) High 09/12/2021 Elevated liver function myalgia fatigue Sulfa (Sulfonamide Antibiotics) Other (see comments),Shortness of breath (Reselect Reaction) Medium 08/23/2002 Medications * This document contains information received from the source organization and may not represent a complete record from that organization. levothyroxine (SYNTHROID, LEVOTHROID) 50 mcg tablet 50 mcg. Mon, Wed, Fri Sat and Sun 6 Active levothyroxine (Synthroid) 25 mcg tablet 25 mcg. Tue and thur 3 Active magnesium oxide (MAG-OX) 400 mg (241.3 mg magnesium) tablet 1 tablet. 1 Active melatonin 3 mg tablet Take 3 mg by mouth at bedtime. 1 Active omeprazole (PriLOSEC) [address] capsule Take 1 capsule by mouth daily. 1 Active rifAXIMin (XIFAXAN) 550 mg tablet 550 mg 2 (two) times a day. 1 Active medical cannabis capsule 3 capsules daily. 1 Active folic acid 400 mcg tablet 400 mcg daily. 1 Active Vitamin B-1, mononitrate, 100 mg tablet 3 Active levETIRAcetam (Keppra) 1,000 mg tablet TAKE 1 TABLET(1000 MG) BY MOUTH TWICE DAILY 180 tablet 3 5 Active levETIRAcetam (Keppra) 250 mg tablet Take 250 mg by mouth. 5 Active Vitamin D3 50 mcg (2,000 unit) tablet Take 50 mcg by mouth daily. Active hydrOXYzine (Atarax) 25 mg tabletIndicatio ns:Depression Major Recurrent Mild Take 1-2 tablets (25-50 mg total) by mouth as needed for anxiety. 30 tablet 3 5 Active benzonatate (Tessalon Perles) 100 mg capsuleIndicati ons:Cough Acute Take 1 capsule (100 mg total) by mouth 3 (three) times a day as needed for cough. 20 capsule 5 Active albuterol 90 mcg/actuation inhaler INHALE 2 PUFFS BY MOUTH EVERY 6 HOURS NEEDED FOR WHEEZING 18 g 3 5 Active ferrous gluconate (Fergon) 324 mg (38 mg iron) tablet Take 324 mg by mouth daily with morning meal. 5 Active pregabalin (Lyrica) 50 mg capsule Take 1 capsule (50 mg total) by mouth 2 (two) times a day. 60 capsule 5 Active Repatha SureClick 140 mg/mL pen injector injection ADMINISTER 1 ML(140 MG) UNDER THE SKIN EVERY 14 DAYS 6 mL 3 Active Active Problems Problem Noted Date Diagnosed [...] (09/15/2023): Added automatically from request for surgery [id number] Bloating Abdominal 12/13/2020 Tachycardia 12/13/2020 Acute On Chronic Diastolic (Congestive) Heart Fa ilure 11/28/2020 Encephalopathy Metabolic 11/28/2020 Edentulous Partial 11/07/2020 Pain Joint 07/02/2020 Weakness Muscle 07/02/2020 Lipodystrophy, Unspecified 03/04/2020 Tinea Corporis 11/28/2019 Systemic Involvement Of [...] organization. Date Type Department Care Team Description 05/08/2025 Orders Only RST Bianca Prince, L.I.C.S.W. Anomaly Heart Congenital (HCC) (Primary Dx) from Last 3 Months Immunizations Immunization Administration [...] drink = 0.6 oz pur e alcohol) [facility] Utilities Answer Date Recorded In the past 12 months has th e Edfa3ly, gas, oil, or water [employer] threatened to shut off services in your [...] Sex Assigned at Female 09/14/2023 4:26 PM CARE NAVIGATOR Legal Sex Female 11:56 AM CARE NAVIGATOR Gender Identity Female 09/14/2023 4:26 PM CARE NAVIGATOR Sexual Orientation Straight 09/14/2023 4: 26 PM CARE NAVIGATOR Last Filed Vital Signs Vital Sign Reading [...] history exists Depression Monitoring (PHQ-9) 03/26/2025 11/24/2024 COVID-19 Vaccine ( season) 2025 08/28/2024, 06/27/2023, 05/24/2022, Additional history exists Influenza Vaccine (#1) 2025 , 08/28/2024, 06/27/2023, Additional history exists Lung Cancer Screening 06/19/2025 06/19/2024 , 10/13/2023, 10/13/2023, Additional history exists Mammogram 11/20/2025 11/20/2024, 0508/2022, 12/07/2022, Additional history exists Office Visit for Blood Pressure Check / Re-check 11/27/2025 11/27/2024 Thyroid Stimulating Hormone (TSH) test for thyroid function 12/28/2025 12/28/2024, 06/19/2024, 02/09/2024, Additional history exists Cervical/Vaginal Cancer Screening 03/15/2026 03/15/2023, 03/14/2018, 01/06/2000 Fasting Glucose for Diabetes Screening 12/29/2027 12/28/2024, 12/05/2024, 06/19/2024, Additional history exists Colonoscopy 03/02/2029 03/02/2019 Colorectal Cancer Screening 03/02/2029 Lipid (Cholesterol) Screening 12/28/2029 12/28/2024, 02/28/2024, 10/13/2023, Additional history exists Hepatitis B Screening Discontinued 11/20/2020 Pneumococcal vaccine (50+ years) Completed 02/16/2022, 05/28/2011 Hepatitis A Vaccines Completed 10/21/2022, 10/22/2021, 08/27/2021 Hepatitis B Vaccines Completed 10/21/2022, 10/22/2021, 08/27/2021 Visit: Medicare Annual Wellness Discontinued 11/24/2024 IPV Vaccines Aged Out No longer eligi ble based on patient's age to complete this topic Procedures Procedure Name Priority Date/Time Associated Diagnosis Comments COMPREHENSIVE METABOLIC PANEL, S/P Routine 12/28/2024 8:48 [...] ED patients; some inpatients) 06/19/2024 8:[address] CHEST ANGIOGRAM ACUTE CHEST PAIN WITH IV CONTRAST (ED ONLY) RAD - Semiurgent (Fast; most ED patients; some inpatients) 06/19/2024 5:11 PM CARE NAVIGATOR from Last 3 Months or Most Recently Relevant to Health Maintenance Results * Lipid Panel (12/28/2024 8:48 AM CDT) [...] Diaz M.D. LAB BLOOD ADD-ON Final Result [facility] [address] [place] [address], [place] [facility] [address] [place] [address] * Thyroid Function Anderson (12/28/2024 8:48 AM CDT) TSH, Sensitive 1.0 0.3 - 4.2 mIU/L 12/28/2024 10:46 AM CDT DTL Blood (Blood, Venous) 12/28/2024 8:48 AM CDT 12/28/2024 9:29 AM CDT Hasmukh Diaz M.D. LAB BLOOD ADD-ON Final Result [facility] [address] [place] [address], [facility] [address] [place] [address] * (ABNORMAL) Comprehensive Metabolic Panel (12/28/2024 8:48 [...] Diaz M.D. LAB BLOOD ADD-ON Final Result [facility] [address] [place] [address], [facility] DTL [facility] [address] [place] [address] * BI Breast Screening Bilateral with Tomosynthesis [...] Screening Mammogram ASSESSMENT: BI-RADS: 1: Negative. us aMhsa Gipson M.D. IMG BI PROCEDURES Final Res ult * US Liver Doppler (06/19/2024 8:02 PM CARE NAVIGATOR) Anatomical Region Laterality Modality Abdomen, Ultrasound RST LOS, Ultrasound ARZ LOS, Ultrasound FLA LOS, Procedural, Vascular Interventional NWWI LOS N/A Ultr asound Impressions 06/20/2024 7:31 AM CARE NAVIGATOR Patent portal vein. The finding on CT earlier today is favored to represent mixing artifact. Narrative 06/20/2024 7:31 AM CARE NAVIGATOR EXAM: US LIVER DOPPLER Exam performed with [...] is favored torepresent mixing artifact. 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 Narrative 06/19/2024 6:33 PM CARE NAVIGATOR EXAM: CT CHEST ANGIOGRAM ACUTE CHEST PAIN [...] 5: 100%, Occluded N: Non-diagnostic study Plaque [place]: P1: Mild (CACS1-100/SIS1-2/1-2 vessels mild plaque) P2: Moderate (ONQZ729-307/SIS3-4/1-2 vessels moderate; 3 vessels mild plaque) P3: Severe (QRSR445-124/SIS5-7/3 vessels moderate; 1 vessel severe plaque) P4: [...] Recently Relevant to Health Maintenance Insurance MEDICARE [facility] Care Teams Dermatology Nurse Relationship Specialty Start Date End Date Elsewhere, Pcp PCP - General Internal Medicine 12/28/24
--- OUTSIDE RECORDS SUMMARY | 2025-06-08 21:27 | XMS_ITS | Clinical Summary ---
Author Organization [facility] Address [address] [place] [address] Care Team Providers Care Correctional Maintenance Technician Name Role Phone Pcp, No Primary Care Provider Unavailabl e Allergies Active Allergy Reactions Criticality Noted Date Comments Atorvastatin Other - Describe In Comment Field Medium 09/12/2021 Elevated liver function myalgia fatigue Cephalexin Anaphylaxis,Hives,T hroat Swelling/Closing,Wh eezing High 11/29/2006 Codeine Hives 11/29/2006 Duloxetine *Unknown 08/10/2011 Liver cannot tolerate this medication Gabapentin 04/17/2010 Latex Rash 07/21/2016 Pertussis Vaccines *Unknown - Childhood Rxn 01/16/2010 Xrulcvk-Moo-Fhd Reductase Inhibitors Nausea Only High 02/05/2022 Sulfa [...] anxiety disorder 07/18/2012 Pain medication agreement 05/13/2011 Overview (05/18/2025): Diagnosis Code replaced due to regulatory update Peripheral neuropathy 05/13/2011 Sarcoidosis 05/13/2011 CHRIS on [...] initiated on Klonopin 5 months ago by RAEGAN, PRN. She was given a prescription for [...] She was hospitalized for one week at [facility] in 2009 and then in inpt rehab [...] mos) 06/14/2017 Influenza, IIV3 (Age >=3 years) 05/18/20,07/06/2016,06/18/2014,2012,06/13/2012,05/28/2011,07/07/2010 Influenza, IIV4 05/24/2020, 9,10/10/2018,2016 Influenza,CCIIV4 PRESERV FREE [...] on file Legal Sex Female 6:26 AM PRICE CLERK Gender Identity Not on file Sexual Orientation [...] for age 50+ (1 of 2) 2019 Depression screening for age 12+ 09/28/2024 09/28/2023, 08/19/2023, 06/20/2021, Additional history exists Influenza Vaccine (#1) 2025 , 10/04/2020, 05/24/2020, Additional history exists Tetanus booster 02/21/2030 02/22/2020, 01/16/2010 RSV vaccine for adults or (1 - 1-dose 75+ series) 2044 Hepatitis C screening for ag e 18-79 Completed 09/02/2009, 03/12/2008 Procedures Procedure Name Priority Date/Time Associated Diagnosis Comments LIPID PANEL Routine 11/14/2009 8:53 AM CDT Other and unspecified hyperlipidemia ANTI HCV Routine 09/02/2009 7:46 AM PRICE CLERK Elevated Liver Enzymes from Last 3 Months or Most Recently Relevant to Health Maintenance Results * (ABNORMAL) LIPID PANEL (11/14/2009 8:53 AM CDT) CHOLESTEROL,TOTAL 199 110 - 199 mg/dL [facility] TRIGLYCERIDES 265(H) 40 - 149 mg/dL [facility] HDL CHOLESTEROL 39(L) >40 mg/dL [facility] CHOL/HDL RATIO 5.10(H) <4.51 [facility] LDL CHOLESTEROL 107 <131 mg/dL [facility] PATIENT STATUS Fasting [facility] Blood specimen (specimen) BLOOD SPECIMEN / Unknown 11/14/2009 8:53 AM CDT 11/14/2009 8:30 AM CDT us Lesley Mccall MD CHEMISTRY Final Result Performing Organization Address [facility] Co de Phone Number [facility] INTERNAL ZIP [phone] [place] [id number] * ANTI HCV (09/02/2009 7:46 AM PRICE CLERK) ANTI HCV Non-reacti ve [facility] Blood specimen (specimen) BLOOD SPECIMEN / Unknown 09/02/2009 7:46 AM PRICE CLERK 09/02/2009 7:36 AM PRICE CLERK us Lesley Mccall MD SEND OUTS Final Result Performing Organization Address [facility] Co de Phone Number [facility] INTERNAL ZIP [phone] [place] [phone] from Last 3 Months or Most Recently Relevant to Health Maintenance Insurance MEDICARE PART B HB ONLY MEDICARE PB ONLY BLUE CROSS OF NON-AZ-ITS Advance Directives * Full Code (Latest Code Status on File) Date Activated Date Inactivated Comments 01/22/2010 1:00 AM 01/22/2010 7:45 AM Care Teams Correctional Maintenance Technician Relationship Specialty Start Date End Date Pcp, No . PCP - General 05/19/22
[2025-06-08 21:29] VITALS: BP 147/88; PULSE 92; RESP 16; TEMP 37; O2SAT 95; BMI 18.8
--- NOTE | 2025-06-08 22:36 | ED.GENADULT ---
HPI - General Adult General Chief complaint: Abdominal Pain Stated complaint: gall stone, abdominal pain Time Seen by Provider: 06/08/25 22:36 History of Present Illness HPI narrative: pt reports upper/lower abd pain rated 8/ 10. [facility] , [facility] scans done. Ultrasound done , found gallstones. Tonight, pain has increased enough to be seen. Full meal at 1730, Chicken [place]. 54-year-old woman presenting to the emergency department with concern of abdominal pain. History of alcoholic cirrhosis. Has not drank for 4 years. Meld score is 3 or 4 she says. She also had history complicated by a MRSA infection resulting in some renal failure as well. Overall doing much better. Was in follow-up ultrasound yesterday and they noted a gallstone. She thinks maybe she has had some before. Than saw her liver doctor earlier today and everything was going well until this evening when she had a sudden flare of pain. This is not pain that she has experienced before with her cirrhosis. She does have nausea but has not been vomiting. Normal bowel movements. Pain was intense and sharp in the right upper abdomen and then started radiating across the abdomen. Related Data Home Medications ?Medication ?Instructions ?Recorded ?Confirmed THC 02/05/22 03/24/25 levetiracetam 1,000 mg tablet 1,000 mg PO Q12H 02/05/22 06/10/25 levothyroxine 50 mcg tablet 50 mcg .Route .COMPLEX 02/05/22 06/10/25 magnesium oxide 400 mg (241.3 mg 400 mg PO DAILY 02/05/22 06/10/25 magnesium) tablet melatonin 3 mg capsule 3 mg PO HS PRN 02/05/22 06/10/25 omeprazole 40 mg capsule,delayed 40 mg PO DAILY 02/05/22 06/10/25 release pregabalin 50 mg capsule 50 mg PO Q12H 02/05/22 06/10/25 rifaximin 550 mg tablet (Xifaxan) 550 mg PO BID 02/05/22 06/10/25 Repatha Syringe 09/11/23 folic acid 400 mcg tablet 0.4 mg PO DAILY 09/11/23 06/10/25 cholecalciferol (vitamin D3) 50 50 mcg PO DAILY 03/24/25 06/10/25 mcg (2,000 unit) tablet (Vitamin D3) evolocumab 140 mg/mL subcutaneous 140 mg subcut .Q 14 days 03/24/25 06/10/25 pen injector (Federica Adames) ferrous gluconate 324 mg (38 mg 324 mg PO DAILY 03/24/25 06/10/25 iron) tablet hydroxyzine HCl 25 mg tablet 25 - 50 mg PO Q8H PRN anxiety 03/24/25 06/10/25 midodrine 10 mg tablet 10 mg PO DAILY 03/24/25 06/10/25 psyllium 1 tbsp PO QAM 03/24/25 06/10/25 thiamine mononitrate (vit B1) 100 100 mg PO DAILY 03/24/25 06/10/25 mg tablet Previous Rx's ?Medication ?Instructions ?Recorded levetiracetam 250 mg tablet 250 mg PO BID #60 tabs 08/31/24 (Keppra) oxycodone-acetaminophen 5 mg-325 1 - 2 tab PO Q4-6H PRN pain #6 tabs 06/09/25 mg tablet (Endocet) Allergies Allergy/AdvReac Type Severity Reaction Status Date / Time cephalexin Allergy Severe Anaphylaxis Verified 06/10/25 12:41 duloxetine Allergy Severe Anaphylaxis Verified 06/10/25 12:41 Pertussis Vaccines Allergy Severe Anaphylaxis Verified 06/10/25 12:41 Orwbtpu-LEO-OyV Reductase Allergy Severe elevated Verified 06/10/25 12:41 Inhibitor LFT Sulfa (Sulfonamide Allergy Severe Anaphylaxis Verified 06/10/25 12:41 Antibiotics) latex Allergy Mild Rash Verified 06/10/25 12:41 codeine Allergy Unknown Verified 06/10/25 12:41 gabapentin AdvReac Mild Verified 06/10/25 12:41 Review of Systems Status of ROS: Reports: 6 or more systems reviewed and unremarkable except as noted in History and below [facility] Medical History Clotting disorder ?D68.9 - Coagulation defect, unspecified (ICD-10) Sarcoidosis ?D86.9 - Sarcoidosis, unspecified (ICD-10) MRSA infection ?A49.02 - Methicillin resistant Staphylococcus aureus infection, unspecified site (ICD-10) Acute tubular necrosis ?N17.0 - Acute kidney failure with tubular necrosis (ICD-10) PFO (patent foramen ovale) ?Q21.12 - Patent foramen ovale (ICD-10) CKD (chronic kidney disease) stage 2, GFR 60-89 ml/min ?N18.2 - Chronic kidney disease, stage 2 (mild) (ICD-10) Ecchymosis ?R58 - Hemorrhage, not elsewhere classified (ICD-10) Subdural hemorrhage ?I62.00 - Nontraumatic subdural hemorrhage, unspecified (ICD-10) Seizures, post-traumatic ?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 - Post traumatic seizures (ICD-10) Tachycardia ?R00.0 - Tachycardia, unspecified (ICD-10) Abdominal bloating ?R14.0 - Abdominal distension (gaseous) (ICD-10) Acute on chronic diastolic (congestive) heart failure ?I50.33 - Acute on chronic diastolic (congestive) heart failure (ICD-10) Cirrhosis of liver ?K74.60 - Unspecified cirrhosis of liver (ICD-10) Metabolic encephalopathy ?G93.41 - Metabolic encephalopathy (ICD-10) Edentulous ?K08.109 - Complete loss of teeth, unspecified cause, unspecified class (ICD-10) Mixed anxiety and depressive disorder ?F41.8 - Other specified anxiety disorders (ICD-10) Generalized muscle weakness ?M62.81 - Muscle weakness (generalized) (ICD-10) Primary insomnia ?F51.01 - Primary insomnia (ICD-10) Lipodystrophy ?E88.1 - Lipodystrophy, not elsewhere classified (ICD-10) Tinea corporis ?B35.4 - Tinea corporis (ICD-10) Vitamin B12 deficiency ?E53.8 - Deficiency of other specified B group vitamins (ICD-10) Folate deficiency ?E53.8 - Deficiency of other specified B group vitamins (ICD-10) Diffuse connective tissue disease ?M35.9 - Systemic involvement of connective tissue, unspecified (ICD-10) Uterine leiomyoma ?D25.9 - Leiomyoma of uterus, unspecified (ICD-10) Hemorrhage into subarachnoid space of neuraxis ?I60.9 - Nontraumatic subarachnoid hemorrhage, unspecified (ICD-10) Steatosis of liver ?K76.0 - Fatty (change of) liver, not elsewhere classified (ICD-10) Peripheral nerve disease ?G62.9 - Polyneuropathy, unspecified (ICD-10) Cyst, ovarian ?N83.209 - Unspecified ovarian cyst, unspecified side (ICD-10) Obstructive sleep apnea ?G47.33 - Obstructive sleep apnea (adult) (pediatric) (ICD-10) Migraine ?G43.909 - Migraine, unspecified, not intractable, without status migrainosus (ICD-10) Hypertension ?I10 - Essential (primary) hypertension (ICD-10) Occipital headache ?R51.9 - Headache, unspecified (ICD-10) GERD (gastroesophageal reflux disease) ?K21.9 - Gastro-esophageal reflux disease without esophagitis (ICD-10) Disturbance in sleep behavior ?G47.9 - Sleep disorder, unspecified (ICD-10) MDD (major depressive disorder) ?F32.9 - Major depressive disorder, single episode, unspecified (ICD-10) Alcohol abuse ?F10.10 - Alcohol abuse, uncomplicated (ICD-10) Mediastinal lymphadenopathy ?R59.0 - Localized enlarged lymph nodes (ICD-10) Sensory ganglionopathy ?G54.9 - Nerve root and plexus disorder, unspecified (ICD-10) Secundum ASD ?Q21.1 - Atrial septal defect (ICD-10) Right ventricular enlargement ?I51.7 - Cardiomegaly (ICD-10) 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 - Partial anomalous pulmonary venous connection (ICD-10) Menorrhagia ?N92.0 - Excessive and frequent menstruation with regular cycle (ICD-10) 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 - Dry beriberi (ICD-10) Tear film insufficiency ?H04.129 - Dry eye syndrome of unspecified lacrimal gland (ICD-10) Presbyopia ?H52.4 - Presbyopia (ICD-10) Bilateral myopia ?H52.13 - Myopia, bilateral (ICD-10) Hypothyroidism ?E03.9 - Hypothyroidism, unspecified (ICD-10) Dental decay ?K02.9 - Dental caries, unspecified (ICD-10) Fibroid ?D21.9 - Benign neoplasm of connective and other soft tissue, unspecified (ICD-10) Vitamin D deficiency ?E55.9 - Vitamin D deficiency, unspecified (ICD-10) Coccyx pain ?M53.3 - Sacrococcygeal disorders, not elsewhere classified (ICD-10) Essential hypertension ?I10 - Essential (primary) hypertension (ICD-10) Dysthymic disorder ?F34.1 - Dysthymic disorder (ICD-10) Generalized anxiety disorder ?F41.1 - Generalized anxiety disorder (ICD-10) Malnutrition ?E46 - Unspecified protein-calorie malnutrition (ICD-10) Myalgia and myositis Fibromyalgia ?M79.7 - Fibromyalgia (ICD-10) Nicotine dependence ?F17.200 - Nicotine dependence, unspecified, uncomplicated (ICD-10) Ataxia ?R27.0 - Ataxia, unspecified (ICD-10) Sarcoidosis of lung with sarcoidosis of lymph nodes ?D86.2 - Sarcoidosis of lung with sarcoidosis of lymph nodes (ICD-10) Peripheral neuropathy ?G62.9 - Polyneuropathy, unspecified (ICD-10) Surgical History Hx of hernia repair ?Z98.890 - Other specified postprocedural states (ICD-10) ?Z87.19 - Personal history of other diseases of the digestive system (ICD-10) History of appendectomy ?Z90.49 - Acquired absence of other specified parts of digestive tract (ICD-10) Social History Smoking Status: Current every day smoker What tobacco products do you use: cigarettes Smoking packs per day: 1 Smoking cigarettes per day: 20.0 Do you use any of these nicotine containing products: None Second hand tobacco smoke exposure: Yes How often do you have a drink containing alcohol: never How often do you have six or more drinks on one occasion: Never AUDIT-C Alcohol total score: 0 Non-prescribed substance use: marijuana (any form) Non-prescribed substance use details: THC pills service: No Exam Narrative: Exam Narrative: Pleasant. Slim. Appears uncomfortable. Ambulating hesitantly with a cane. Breathing easily. Lungs are clear. No flank pain. Abdomen is mild to moderately tender across the upper abdomen. Skin is warm and dry. Without lower extremity edema. Const: Vital Signs, click to edit/add: Vital Signs - 24 hr 06/08/25 21:29 Temperature 98.6 F Pulse Rate [Left P ulse Oximeter] 92 Respiratory Rate 16 Blood Pressure [Ri ght Upper Arm] 147/88 H Pulse Oximetry 95 Oxygen Delivery Me thod Room Air Documenting provider has reviewed patient's vital signs: yes Course Vital Signs Vital signs: Initial Vital Signs Temperature 98.6 F 06/08/25 21:29 Temperature Source Temporal Artery Scan 06/08/25 21:29 Pulse Rate 92 06/08/25 21:29 Pulse Rhythm Regular 06/08/25 21:29 Respiratory Rate 16 06/08/25 21:29 Blood Pressure 147/88 H 06/08/25 21:29 Blood Pressure Mean 107 H 06/08/25 21:29 Blood Pressure Position Sitting 06/08/25 21:29 Pulse Oximetry 95 06/08/25 21:29 Oxygen Delivery Method Room Air 06/08/25 21:29 Vital Signs Temperature 98.6 F 06/08/25 21:29 Pulse Rate 92 06/08/25 21:29 Respiratory Rate 16 06/08/25 21:29 Blood Pressure 147/88 H 06/08/25 21:29 Pulse Oximetry 95 06/08/25 21:29 Oxygen Delivery Method Room Air 06/08/25 21:29 Temperature 97.5 F L 06/09/25 01:01 Pulse Rate 70 06/09/25 01:01 Respiratory Rate 17 06/09/25 01:01 Blood Pressure 131/92 H 06/09/25 01:01 Pulse Oximetry 96 06/09/25 01:01 Oxygen Delivery Method Room Air 06/09/25 01:01 Medications Administered Medications: Discontinued Medications Generic Name Dose Route Start Last Admin Trade Name Freq PRN Reason Stop Dose Admin Hydromorphone HCl 0.5 mg 06/08/25 22:58 06/08/25 23:23 Hydromorphone 0.5 Mg/0.5 Ml Inj IVP 06/08/25 22:59 0.5 mg ONCE ONE Administration Sodium Chloride 1,000 mls @ 1,000 mls/hr 06/08/25 22:59 06/09/25 01:02 0.9 % Sodium Chloride 1000 Ml IV 06/08/25 23:58 Infused .Q1H ONE Infusion Ketorolac Tromethamine 15 mg 06/08/25 22:58 06/08/25 23:20 Ketorolac 15 Mg/Ml Inj IVP 06/08/25 22:59 15 mg ONCE ONE Administration Ondansetron HCl 4 mg 06/08/25 22:59 06/08/25 23:18 Ondansetron 2 Mg/Ml Inj IVP 10/31/25 23:00 4 mg ONCE ONE Administration Medical Decision Making MDM Narrative Medical decision making narrative: With recent imaging. Will check standard labs to prompt further evaluation. Differential includes but not limited to choledocholithiasis, cholelithiasis, pain related to cirrhosis, gastritis, pancreatitis, cardiac etiology unlikely. SBO possible but has been having normal, regular bowel movements. Ordered for NS, dilaudid, ketorolac, zofran. Labs show mild pancreatitis with mildly elevated lipase. liver labs do not suggest obstruction Was able to do an ultrasound. Discussed findings with seam press operator. Challenged by contracted state. Evidence only of cholelithiasis. INDICATION: Right upper quadrant abdominal pain. TECHNIQUE: Ultrasound abdomen limited. Sonographic images of the gallbladder were obtained using quiñonez-scale and color Doppler images. COMPARISON: CT abdomen and pelvis 05/14/2024. FINDINGS: Gallbladder: Gallstones. Mild wall thickening measuring 5 mm, however accentuated by contracted state. No pericholecystic fluid. Negative sonographic De La Vega`s sign. Common bile duct: 4 mm. IMPRESSION: 1. Cholelithiasis without sonographic evidence to suggest cholecystitis. 2. Mild gallbladder wall thickening, likely accentuated by contracted state. Dictated by Avery Kam MD @ 06/09/2025 12:59:28 AM On reassessment is markedly improved. Given some juice to drink. Tolerated with some mild discomfort. Certainly complicated history but I think might be able to turn this around outpatient. Alternative is CT imaging and admission for bowel rest. Mutually agreed to outpatient trial without further evaluation See patient discharge plane for further discussion. You do appear to have a mild pancreatitis. I am happy you are feeling better. I would take it easy with your diet over the next couple of days. Would start off with clears -- diluted juices and soup broth. Can advance then to maybe thicker soups, crackers, toast, rice. I would avoid fatty, rich foods for the next few days. As discussed I am prescribing some Percocet and Zofran from [facility]. Each tablet of Percocet contains 5 mg oxycodone 325 mg of acetaminophen per dose (minimal Percocet in [facility]. I have sent in some more pills to pharmacy) Return for marked increase in persistent pain, repeated vomiting, associated fever. Medical Records Medical records reviewed: Yes I reviewed the patient's medical records Lab Data Lab results reviewed: Yes I reviewed the patient's lab results Labs: Lab Results 06/08/25 Range/Units 23:15 WBC 5.52 (4.50-11.00) K/uL RBC 5.19 (4.00-5.20) m/uL Hgb 14.6 (12.0-16.0) gm/dL Hct 43.3 (33.0-51.0) % MCV 83 (80-100) fL MCH 28 (26-34) pg MCHC 34 (32-36) gm/dL RDW Coeff of Susanna 14.4 (11.5-15.5) % Plt Count 62 L (140-440) K/uL Neut % (Auto) 75.5 H (42.0-72.0) % Lymph % (Auto) 17.8 L (20-44) % [place] % (Auto) 5.4 (0.0-11.0) % Eos % (Auto) 0.7 (0.0-7.0) % Baso % (Auto) 0.2 (0.0-3.0) % Neut # (Auto) 4.20 (1.7-7.0) K/uL Lymph # (Auto) 1.00 (0.90-2.90) K/uL [place] # (Auto) 0.30 (0.00-0.90) K/UL Eos # (Auto) 0.04 (0.00-0.50) K/uL Baso # (Auto) 0.01 (0.00-0.30) K/uL Abs Immat Gran (auto) 0.02 (0.00-0.30) K/uL Imm/Tot Granulo (auto) 0.4 % Total Bilirubin 1.3 (0.1-1.5) mg/dL Direct Bilirubin 0.4 (0.0-0.5) mg/dL AST 40 H (12-35) U/L ALT 21 (4-35) U/L Alkaline Phosphatase 50 (40-150) U/L C-Reactive Protein < 0.5 L (0.5-1.0) mg/dL Total Protein 6.8 (6.0-8.3) g/dL Albumin 4.0 (3.3-5.0) g/dL Lipase 522 H (23-300) U/L Discharge Plan Discharge Clinical Impression: Pancreatitis, Cholelithiasis Patient Disposition: Home w/ Parent or Adult Condition: Improved Additional Instructions: You do appear to have a mild pancreatitis. I am happy you are feeling better. I would take it easy with your diet over the next couple of days. Would start off with clears -- diluted juices and soup broth. Can advance then to maybe thicker soups, crackers, toast, rice. I would avoid fatty, rich foods for the next few days. As discussed I am prescribing some Percocet and Zofran from [id number]. Each tablet of Percocet contains 5 mg oxycodone 325 mg of acetaminophen per dose (minimal Percocet in [facility]. I have sent in some more pills to pharmacy) Return for marked increase in persistent pain, repeated vomiting, associated fever. Prescriptions: New oxycodone-acetaminophen [Endocet] 5-325 mg tablet 1 - 2 tab PO Q4-6H PRN (Reason: pain) Qty: 6 0RF No Action levetiracetam [Keppra] 250 mg tablet 250 mg PO BID Qty: 60 0RF Rx Instructions: Take this twice a day with your 1000 mg tablets for a total of 1250 mg twice daily. omeprazole 40 mg capsule,delayed release(DR/EC) 40 mg PO DAILY magnesium oxide 400 mg (241.3 mg magnesium) tablet 400 mg PO DAILY levothyroxine 50 mcg tablet 50 mcg .ROUTE .COMPLEX Rx Instructions: as prescribed pregabalin 50 mg capsule 50 mg PO Q12H levetiracetam 1,000 mg tablet 1,000 mg PO Q12H Xifaxan 550 mg tablet 550 mg PO BID melatonin 3 mg capsule 3 mg PO HS PRN (DME) THC See Rx Instructions .ROUTE .MEDSUPPLY Rx Instructions: as prescribed Repatha Syringe folic acid 400 mcg tablet 0.4 mg PO DAILY hydroxyzine HCl 25 mg tablet 25 - 50 mg PO Q8H PRN (Reason: anxiety) Repatha SureClick 140 mg/mL pen injector 140 mg subcut .Q 14 days psyllium Powder 1 tbsp PO QAM Rx Instructions: mix into at least 8 oz of water or juice before administering midodrine 10 mg tablet 10 mg PO DAILY ferrous gluconate 324 mg (38 mg iron) tablet 324 mg PO DAILY cholecalciferol (vitamin D3) [Vitamin D3] 50 mcg (2,000 unit) tablet 50 mcg PO DAILY thiamine mononitrate (vit B1) 100 mg tablet 100 mg PO DAILY Follow Up/Referrals: Provider,Not a Local [Primary Care Provider, Family Practice] Stand Alone [facility]: [facility] Inst[facility]
--- OUTSIDE RECORDS SUMMARY | 2025-06-08 22:45 | XMS_ITS | Encounter Summary ---
Author Organization [facility] Address [address] [place] [address] 28033 Care Team Providers Care Larriman Helper Name Role Phone Rio Jaquez MD Primary Care Provider + [phone] Barry Kilpatrick MD Unavailable Michelle Henderson RN Unavailable [phone] Rio Jaquez MD Unavailable +[phone] Jemima Jaramillo MD Unavailable Unavai Kelley Bautista RN Unavailable +[phone] Sydnee Saleem MD Unavailable +[phone] Karlene Moya MD Unavailable +[phone] Wilbert Quintero OD Unavailable +[phone] Rod GauthierM Unavailable +[phone] Nallely Hogue RN Unavailable Unavailable Larisa Vargas RN Unavailable Unavailable Rio Jaquez MD Unavailable +[phone] Ruth aYrbrough MD Unavailable +[phone] Francisco Lott MD Unavailable +[phone] Frida Grace MD Unavailable +[phone] Sydnee Saleem MD Unavailable +[phone] [...] Unavailable Eloina Eppersonorachloe Hopper NP Unavailable [phone] Thom Taveras MD Unavailable +[phone] Joesph Crowe MD Unavailable +[phone] Joesph Crowe MD Unavailable +[phone] Adonay Haq MD Unavailable +[phone] Denilson Srinivasan MD Unavailable +[phone] Jason Alvares MD Unavailable Ruth Riddle DPM, Podiatry /Foot and Ankle Surgery Unavailable Omar Carmona MD Primary Care Provider [phone] Jignesh Mathias MD Unavailable Adonay Haq MD Unavailable +[phone] Omar Carmona MD Unavailable +[phone] Jason Alvares MD Unavailable Jignesh Mathias MD Unavailable Ayad Lopez PhD LP Unavailable +[phone] Gaiv Nieto-Keisha Unavailable +[phone] Encounter Details Date Type Department Care Team (Late st Contact Info) Description 12/08/2019 MyC Medical Advice [facility] Dermatology [address] [place] [phone] Ashlee Oneil LPN Social History Tobacco Use Types Packs/Day Years Used Date Smoking Tobacco: Every Day Cigarettes 1 42.8 Started: 08/09/1982 Smokeless Tobacco: Never Alcohol Use Standard Drinks/Week Comments Yes 0 (1 standard drink = 0.6 oz pur e alcohol) occ Comments No Sex and Gender Information Value Date Recorded Sex Assigned at Female 09/12/2020 12:05 PM CARPET INSTALLATION SPECIALIST Legal Sex Female 3:26 AM CARPET INSTALLATION SPECIALIST Gender Identity Female 09/12/2020 12:05 PM CARPET INSTALLATION SPECIALIST Sexual Orientation Straight 12/19/2021 10 :44 [...] st Contact Info) Description 06/13/2025 6:00 PM CARPET INSTALLATION SPECIALIST Ancillary Procedure [facility] Clinic [address] [phone] Omar Carmona MD [address] [place] [address] 528915 06/14/2025 4:00 PM CARPET INSTALLATION SPECIALIST Office Visit [facility] Primary Care Clinic [address] [phone] Omar Carmona MD [address] [place] [address] [id number] 06/15/2025 12:45 PM CARPET INSTALLATION SPECIALIST Therapy Visit [facility] Rehabilitation Services [address] [phone] Jason Alvares MD [address] [place] [address] 295 [place], [place] 183415 Chaya Castillo, OTR [facility] 150 [place], [place] 888357 06/19/2025 10:30 AM CARPET INSTALLATION SPECIALIST Virtual Visit [facility] Primary Care [address] [phone] Omar Carmona MD [address] [place] [address] 447345 Gerson Santos, MORENO 06/26/2025 11:00 AM CARPET INSTALLATION SPECIALIST Therapy Visit [facility] 150 [place] [phone] Jason Alvares MD [address] [place] [address] 297855 Chaya Castillo, OTR [address] [address] 07/09/2025 12:45 PM CARPET INSTALLATION SPECIALIST Therapy Visit [address] [phone] Jason Alvares MD [address] [place] [address] 898945 Chaya Castillo, OTR [address] [address] 07/18/2025 3:00 PM CARPET INSTALLATION SPECIALIST Office Visit [facility] Heart [address] [phone] Adonay Chapman APRN [employer] 500 [place], [place] 905415 11/05/2025 12:30 PM CDT Lab [facility] Lab [address] 1st [place] [phone] 11/05/2025 1:45 PM CDT Office Visit [facility] Dermatology Clinic [address] 3rd [place] [phone] Gavi Nieto PA-C Dermatology [address] [place] [address] [id number] 11/20/2025 10:30 AM CDT Virtual Visit [address] [place] [address] Marquise Hanley MD 9 [place] [address] documented as of this encounter Goals Goal [...] Depression Total Score: 10 019 7:06 AM CARPET INSTALLATION SPECIALIST documented as of this encounter Care Teams Larriman Helper Relationship Specialty Start Date End Date Rio Jaquez MD [address] [place] [address] [address] 4 [place] [address] PCP - General Family Practice 12/02/10 07/13/24 Omar Carmona MD [address] [place] [address] PCP - General Family Medicine 07/14/24 Barry Kilpatrick MD [address] [place] [address] [id number] [place] [address] Neurology 07/19/14 Michelle Henderson I, RN Nurse Coordinator Neurology 07/19/14 Rio Jaquez MD [address] [place] [address] 4 [place] [address] Family Practice 10/15/14 Jemima Jaramillo MD measurer 11/20/14 Kelley Chin RN [facility] [address] [place] [address] 118225 Nurse Coordinator Cardiology 11/04/15 Sydnee Saleem MD [address] [facility] 508 [place], [place] 657545 Cardiology 11/04/15 Karlene Moya MD [address] [place] [address] 158985 Ophthalmology 06/24/17 Wilbert Quintero, OD [address] [place] [address] 691375 Optometry 06/24/17 Rod Gauthier DPM [address] [place] [address] [phone] Licensed Practical Nurse Clinic Nurse Primary Podiatric Medicine 06/21/18 Nallely Hogue, RN Registered Nurse 02/20/19 11/23/22 Larisa Vargas, TANIA Specialty Hydrology Professor Cardiology 04/18/19 03/06/22 Rio Jaquez MD [address] [place] [address] 774285 Assigned PCP 12/28/19 11/16/20 Ruth Yarbrough MD [address] [facility] 101 [place], [place] 381665 Assigned Endocrinology Provider 05/31/20 09/28/20 Francisco Lott MD [address] [place] [address] 27625 Assigned Rheumatology Provider 05/31/20 12/13/21 [place] [address] [place] [address] JASON ANDERSON 15800 Assigned Pediatric Specialist Provider 05/31/20 09/08/20 Sydnee Saleem MD [address] [place] [address] [phone] Assigned Heart and Vascular Provider 05/31/20 10/22/20 Greg Ortega MD [address] [place] [address] 92232 Assigned Surgical Provider 06/23/20 12/06/21 [place] [address] [place] [address] JASON ANDERSON 56840 Assigned Surgical Provider 05/31/20 06/22/20 Jan Mahmood MD [address] [place] [address] Gastroenterology 11/05/20 Brantd Quintana MD [address] [place] [address]70 Resident 11/05/20 Jan Mahmood MD [address] [place] [address] 42891 Assigned Gastroenterology Provider 12/01/20 Rio Jaquez MD 909 [facility] 4 [place] [address] Assigned PCP 11/17/20 09/30/24 Dom Eason MD [address] [place] [address] 353 [place] [address] Internal Medicine 12/02/20 Jayla Plaza, RN Specialty Hydrology Professor Hepatology 01/09/21 02/13/24 Jayla Plaza, RN Specialty Hydrology Professor Hepatology 01/10/21 01/10/21 Sdynee Saleem MD [address] [place] [address] Assigned Heart and Vascular Provider 02/02/21 07/24/22 Phan Coello MD Assigned Neuroscience Provider 02/21/21 11/22/21 Cristian Barragan MD 2945 [place] [address] Assigned Infectious Disease Provider 02/21/21 03/06/22 Dom Eason MD [address] [place] [address] 353 [place] [address] Assigned Nephrology Provider 04/20/21 01/02/22 Jaimie Vernon, RN Specialty Hydrology Professor Cardiology 10/28/21 Ruth Riddle DPM, Podiatry/Foot and Ankle Surgery [address] R[place]IG[place]Z [address] [place] [address] 95[address] Assigned Musculoskeletal Provider 11/30/21 09/30/23 Luis Arrington MD [address] [place] [address] 7[address]8 Assigned Neuroscience Provider 11/23/21 01/02/22 Jason Alvares MD [address] [place] [address] 62581 Assigned Neuroscience Provider 01/03/22 05/15/22 Marquise Hanley MD [address] [place] [address] 54021 Endocrinology, Diabetes, and Metabolism 03/05/22 Vlad Ramey MD [address] [place] [address] 969805 Cardiovascular Disease 05/07/22 Joesph Crowe MD [address] [place] [address] 91188 Surgery 05/07/22 Luis Arrington MD [address] [place] [address] 40521 Assigned Neuroscience Provider 05/16/22 05/14/23 Michelle Padilla, TANIA Specialty Hydrology Professor Cardiology 07/03/22 Vlad Ramey MD [address] [place] [address] 460375 Assigned Heart and Vascular Provider 07/25/22 05/28/23 Marquise [place] MD 909 [place] [address] Assigned Endocrinology Provider 08/15/22 Dom Eason MD 717 [facility] 353 [place] [address] Assigned Nephrology Provider 11/28/22 02/19/23 Wagner Oliver MD [address] [place] [address] Critical Care 12/15/22 Laura Epperson NP 717 [facility] 1932 [place] [address] Assigned Nephrology Provider 02/20/23 08/30/24 Thom Taveras MD [address] [place] [address] Assigned Cancer Care Provider 02/06/23 08/20/23 Joesph Crwoe MD [address] [place] [address] 58701 Surgery 03/17/23 Joesph Crowe MD [address] [place] [address] 77924 Assigned Surgical Provider 04/03/23 09/30/24 Adonay Haq MD [address] [place] [address] 8[address] Internal Medicine 06/14/23OctoberDenilson MD [address] [facility] [address] [place], [place] 738245 Assigned Heart and Vascular Provider 05/29/23 11/28/24 Jason Alvares MD [address] [facility] 295 [place], [place] 647965 Assigned Neuroscience Provider 05/15/23 11/28/24 Ruth Riddle DPM, Podiatry/Foot and Ankle Surgery [address] [place] [address] [place], [place] 932547 Assigned Musculoskeletal Provider 10/22/23 Jignesh Mathias MD [address] [place] [address] 768965 Gastroenterology 09/25/24 Adonay Haq MD [address] [place] [address] 882665 Assigned PCP 10/01/24 12/28/24 Omar Carmona MD [address] [place] [address] 078695 Assigned PCP 12/29/24 Jason Alvares MD [address] [place] [address] 295 [place] [address] Assigned Neuroscience Provider 12/29/24 Jignesh Mathias MD [address] [place] [address] 73234 Assigned Surgical Provider 12/29/24 Ayad Lopez, PhD LP [address] [place] [address] Assigned Behavioral Health Provider 02/28/25 Gavi Nieto PA-C 500 [place] [address] Physician Patent Leather Sorter Dermatology 03/19/25 documented as of this encounter
--- OUTSIDE RECORDS SUMMARY | 2025-06-08 22:45 | XMS_ITS | Encounter Summary ---
Author Organization [facility] Address [address] [place] [address] Care Team Providers Care Manager Willow Name Role Phone Rio Jaquez MD Primary Care Provider + [phone] Barry Kilpatrick MD Unavailable Michelle Henderson RN Unavailable [phone] Rio Jaquez MD Unavailable +[phone] Jemima Jaramillo MD Unavailable Unavai Kelley Bautista RN Unavailable +[phone] Sydnee Saleem MD Unavailable [phone] Karlene Moya MD Unavailable [phone] Wilbert Quintero OD Unavailable +[phone] Rod GauthierM Unavailable +[phone] Nallely Hogue RN Unavailable Unavailable Larisa Vargas RN Unavailable Unavailable Rio Jaquez MD Unavailable +[phone] Ruth Yarbrough MD Unavailable +[phone] Francisco Lott MD Unavailable +[phone] Frida Grace MD Unavailable +[phone] Sydnee Saleem MD Unavailable +[phone] Greg Ortega MD Unavailable +[phone] Frida Grace MD Unavailable [phone] Jan Mahmood MD Unavailable Brandt Quintana MD Unavailable Jan Mahmood MD Unavailable Rio Jaquez MD Unavailable [phone] Dmo Eason MD Unavailable Jayla Plaza RN Unavailable [...] Unavailable +[phone] Thom Taveras MD Unavailable [phone] Joesph Crowe MD Unavailable +[phone] Joesph Crowe MD Unavailable +[phone] Adonay Haq MD Unavailable +[phone] [facility] HealthDenilson MD Unavailable +[phone] Jason Alvares MD Unavailable Ruth Riddle DPM, Podiatry /Foot and Ankle Surgery Unavailable Omar Carmona MD Primary Care Provider [phone] Jignesh Mathias MD Unavailable Adonay Haq MD Unavailable [phone] [facility] MD Unavailable +[phone] Jason Alvares MD Unavailable Jignesh Mathias MD Unavailable Ayad Lopez PhD Unavailable +[phone] Gavi Nieto-C Unavailable [phone] Reason for Referral * Consultation (Routine) - Closed Specialty Diagnoses / Procedures Referred By Good zhu Referred To Contact Diagnoses 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 (2) List of current medications (3) This referral request (4) Any documents/labs given to you for this referral Encounter Details Date Type Department Care Team (Late Contact Info) Description 03/03/2020 MyC Medical Advice [facility] [address] [phone] Francisco L[place] MD [address] [place] [address] Parotid gland enlargement (Primary Dx); IgG4 [...] Sex Assigned at Female 09/12/2020 12:05 PM CLIMATOLOGY TEACHER Legal Sex Female 3:26 AM CLIMATOLOGY TEACHER Gender Identity Female 09/12/2020 12:05 PM CLIMATOLOGY TEACHER Sexual Orientation Straight 12/19/2021 10 :44 [...] Upcoming Encounters Date Type Department Care Team ([facility] Contact Info) Description 06/13/2025 6:00 PM CLIMATOLOGY TEACHER Ancillary Procedure [facility] CT Clinic [address] 1st [place] [address] Omar Carmona MD [address] [place] [address] 763425 06/14/2025 4:00 PM CLIMATOLOGY TEACHER Office Visit [facility] Primary Care [address] [phone] Omar Carmona MD [address] [place] [address] 537335 06/15/2025 12:45 PM CLIMATOLOGY TEACHER Therapy Visit [facility] 150 [place] [phone] Jason Alvares MD [address] [place] [address] 175495 Chaya Castillo, OTR [facility] 150 [place], [place] 566147 06/19/2025 10:30 AM CLIMATOLOGY TEACHER Virtual Visit [facility] [address] [phone] Omar Carmona MD [address] [place] [address] 139415 Gerson Santos [facility] 06/26/2025 11:00 AM CLIMATOLOGY TEACHER Therapy [facility] [address] [place] [phone] Jason Alvares MD [address] [place] [address] 973195 Chaya Castillo, OTR [facility] 150 [place] [address] 07/09/2025 12:45 PM CLIMATOLOGY TEACHER Therapy Visit [facility] 150 [place] [phone] Jason Alvares MD 420 [facility] 295 [place] [address] Chaya Castillo, OTR [facility] 150 [place] [address] 07/18/2025 3:00 PM CLIMATOLOGY TEACHER Office Visit [facility] Heart [address] [phone] Adonay Chapman APRN [facility] 500 [place], [place] 822515 11/05/2025 12:30 PM CDT Lab [facility] Lab [address]st [place] [phone] 11/05/2025 1:45 PM CDT Office Visit [facility] Dermatology [address] 3rd [place] [phone] Gavi Nieto, PANavinC Dermatology [address] [place] [address] 11/20/2025 10:30 AM CDT Virtual Visit [address] [address] Marquise Hanley MD [address] [place] [address] 778425 Scheduled Referrals Name Type Priority Associated Diagnoses [...] Assessment Noted Time PHQ-9 Depression Total Score: 020 9:33 AM CDT documented as of this encounter Care Teams Manager Willow Relationship Specialty Start Date End Date Rio Jaquez MD [address] [place] [address] PCP - General Family Practice 12/02/10 07/13/24 Omar Carmona MD [address] [place] [address] 42688 PCP - General Family Medicine 07/14/24 Barry Kilpatrick MD [address] [place] [address] [id number] [place] [address] Neurology 07/19/14 Michelle Henderson RN Nurse Coordinator Neurology 07/19/14 Rio Jaquez MD [address] [place] [address] 79037 Family Practice 10/15/14 Jemima Jaramillo MD executive coach 11/20/14 Kelley Chin RN [address] 904735 Nurse Coordinator Cardiology 11/04/15 Sydnee Saleem MD 420 [facility] 508 [place], [place] 520905 Cardiology 11/04/15 Karlene Moya MD 516 [place], [place] 587045 Ophthalmology 06/24/17 Wilbert Quintero, OD [address] [place] [address] 588265 Optometry 06/24/17 Rod Gauthier DPM [address] [place] [address] 127235 Business Practices Officer Primary Podiatric Medicine 06/21/18 Nallely Hogue, RN Registered Nurse 02/20/19 11/23/22 Larisa Vargas, TANIA Specialty Insurance Loss Control Surveyor Cardiology 04/18/19 03/06/22 Rio Jaquez MD [address] [place] [address] 4 [place], [place] 338385 Assigned PCP 12/28/19 11/16/20 Ruth Yarbrough MD 420 [facility] 101 [place], [place] 940485 Assigned Endocrinology Provider 05/31/20 09/28/20 rFancisco Lott MD [address] [facility] 88 [place], [place] 172955 Assigned Rheumatology Provider 05/31/20 12/13/21 Frida Grace MD [address] [place] [address] JASON ANDERSON 95903 Assigned Pediatric Specialist Provider 05/31/20 09/08/20 Sydnee Saleem MD 6550 [facility] [address] [place] [address] Assigned Heart and Vascular Provider 05/31/20 10/22/20 Grge Ortega MD [address] [place] [address] 57841 Assigned Surgical Provider 06/23/20 12/06/21 Frida Grace MD 3305 [facility] JASON ANDERSON [address]29 Assigned Surgical Provider 05/31/20 06/22/20 Jan Mahmood MD [address] [place] [address] 73179 Gastroenterology 11/05/20 Brandt Quintana MD [address] [place] [address] 9[address]17 Resident 11/05/20 Jan Mahmood MD [address] [place] [address] 15034 Assigned Gastroenterology Provider 12/01/20 Rio Jaquez MD [address] [address] Assigned PCP 11/17/20 09/30/24 Dom Eason MD [address] [place] [address] 99337 Internal Medicine 12/02/20 Jayla Plaza, RN Specialty Insurance Loss Control Surveyor Hepatology 01/09/21 02/13/24 Jayla Plaza, RN Specialty Insurance Loss Control Surveyor Hepatology 01/10/21 01/10/21 [place] [address] [place] [address] [place] [address] 83037 Assigned Heart and Vascular Provider 02/02/21 07/24/22 Phan Coello MD Assigned Neuroscience Provider 02/21/21 11/22/21 [place] [address] [place] [address] 9[address]19 Assigned Infectious Disease Provider 02/21/21 03/06/22 Dom Eason MD [address] [place] [address] 33409 Assigned Nephrology Provider 04/20/21 01/02/22 Jaimie Vernon, TANIA Specialty Insurance Loss Control Surveyor Cardiology 10/28/21 Ruth Riddle, DPM, Podiatry/Foot and Ankle Surgery [address] [facility] 300 [place] [address] Assigned Musculoskeletal Provider 11/30/21 09/30/23 Luis Arrington MD [address] [place] [address] 23467 Assigned Neuroscience Provider 11/23/21 01/02/22 Jason Alvares MD [address] [place] [address] 50158 Assigned Neuroscience Provider 01/03/22 05/15/22 Marquise Hanley MD [address] [place] [address] 59704 Endocrinology, Diabetes, and Metabolism 03/05/22 Vlad Ramey MD [address] [place] [address] 845205 Cardiovascular Disease 05/07/22 Joesph Crowe MD [address] [place] [address] 61944 Surgery 05/07/22 Luis Arrington MD [address] [place] [address] 30103 Assigned Neuroscience Provider 05/16/22 05/14/23 Michelle Padilla RN Specialty Insurance Loss Control Surveyor Cardiology 07/03/22 Vlad Ramey MD [address] [place] [address] 22752 Assigned Heart and Vascular Provider 07/25/22 05/28/23 Marquise Hanley MD [address] [place] [address] 41050 Assigned Endocrinology Provider 08/15/22 Dom Eason MD [address] [place] [address] 75146 Assigned Nephrology Provider 11/28/22 02/19/23 Wagner Oliver MD [address] [place] [address] Critical Care 12/15/22 Lauar Epperson NP 717 [facility] 1932 [place] [address] Assigned Nephrology Provider 02/20/23 08/30/24 Thom Taveras MD [address] [place], [place] 4945[address] Assigned Cancer Care Provider 02/06/23 08/20/23 Joesph Crowe MD [address] [place] [address] [phone] Surgery 03/17/23 Joesph Crowe MD [address] [place] [address] 863445 Assigned Surgical Provider 04/03/23 09/30/24 Adonay Haq MD [address] [place] [address] 343255 Internal Medicine 06/14/23OctoberDenilson MD [address] [facility] [address] [place] [address] Assigned Heart and Vascular Provider 05/29/23 11/28/24 Jason Alvares MD [address] [facility] 295 [place] [address] Assigned Neuroscience Provider 05/15/23 11/28/24 Ruth Riddle DPM, Podiatry/Foot and Ankle Surgery [address] [place] [place] [address] Assigned Musculoskeletal Provider 10/22/23 Jignesh Mathias MD [address] [place] [address] 48748 Gastroenterology 09/25/24 Adonay Haq MD [address] [place] [address] 214365 Assigned PCP 10/01/24 12/28/24 Omar Carmona MD [address] [place] [address] 185805 Assigned PCP 12/29/24 Jason Alvares MD [address] [place] [address] 404165 Assigned Neuroscience Provider 12/29/24 Jignesh Mathias MD [address] [place] [address] 00468 Assigned Surgical Provider 12/29/24 Ayad Lopez, PhD LP [address] [place] [address] 698305 Assigned Behavioral Health Provider 02/28/25 Gavi Nieto PA-C [address] [place] [address] 03154 Physician Community Support Professional Dermatology 03/19/25 documented as of this encounter
--- OUTSIDE RECORDS SUMMARY | 2025-06-08 22:45 | XMS_ITS | Encounter Summary ---
Author Organization [place] Address [address] [place] [address] Care Team Providers Care Tree Faller Name Role Phone Rio Jaquez MD Primary Care Provider + [phone] Barry Kilpatrick MD Unavailable Michelle Henderson RN Unavailable [phone] Rio Jaquez MD Unavailable +[phone] Jemima Jaramillo MD Unavailable Unavai Kelley Bautista RN Unavailable +[phone] Sydnee Saleem MD Unavailable +[phone] Karlene Moya MD Unavailable +[phone] Wilbert Quintero OD Unavailable +[phone] Rod GauthierM Unavailable +[phone] Nallely Hogue RN Unavailable Unavailable Larisa Vargas RN Unavailable Unavailable Rio Jaquez MD Unavailable +[phone] Ruth Yarbrough MD Unavailable +[phone] Francisco Lott MD Unavailable +[phone] Frida Grace MD Unavailable +[phone] Sydnee Saleem MD Unavailable +[phone] Greg Ortega MD Unavailable Frida Grace MD Unavailable +[phone] Jan Mahmood MD Unavailable Brandt Quintana MD Unavailable Jan Mahmood MD Unavailable Rio Jaquez MD Unavailable +[phone] Dom Eason MD Unavailable Jayla Plaza RN Unavailable +[phone] Jayal Plaza RN Unavailable +[phone] Sydnee Saleem [...] MD Unavailable Laura Epperson NP Unavailable +[phone] Thom Taveras MD Unavailable +[phone] Joesph Crowe MD Unavailable +[phone] Joesph Crowe MD Unavailable +[phone] Adonay Haq MD Unavailable +[phone] [facility] +[phone] Jason Alvares MD Unavailable Ruth Riddle DPM, Podiatry /Foot and Ankle Surgery Unavailable Omar Carmona MD Primary Care Provider [phone] Jignesh Mathias MD Unavailable Adonay Haq MD Unavailable +[phone] Omar bragg MD Unavailable +[phone] Jason Alvares MD Unavailable Jignesh Mathias MD Unavailable Ayad Lopez PhD LP Unavailable +[phone] Gavi Nieto-Keisha Unavailable +[phone] Encounter Details Date Type Department Care Team (Late st Contact Info) Description 02/29/2020 [facility] Rheumatology Clinic [address] [address] Francisco Lott MD [address] [place] [address] Social History Tobacco Use Types Packs/Day Years Used Date Smoking Tobacco: Every Day Cigarettes 1 42.8 Started: 08/09/1982 Smokeless Tobacco: Never Alcohol Use Standard Drinks/Week Comments Yes 0 (1 standard drink = 0.6 oz pur e alcohol) occ PHQ-2 Answer Date Recorded PHQ-2 Score 2 02/22/2020 Comments No Sex and Gender Information Value Date Recorded Sex Assigned at Female 09/12/2020 12:05 PM CLERK OPERATOR Legal Sex Female 3:26 AM CLERK OPERATOR Gender Identity Female 09/12/2020 12:05 PM CLERK OPERATOR Sexual Orientation Straight 12/19/2021 10 :44 [...] st Contact Info) Description 06/13/2025 6:00 PM CLERK OPERATOR Ancillary Procedure [facility] Imaging Center CT Clinic [address] [phone] Omar Carmona MD [address] [place] [address] 761605 06/14/2025 4:00 PM CLERK OPERATOR Office Visit [facility] [address] [phone] Omar Carmona MD [address] [place] [address] 06/15/2025 12:45 PM CLERK OPERATOR Therapy Visit [facility] Rehabilitation Services [facility] [address] [place] [phone] Jason Alvares MD [address] [place] [address] 295 [place], [place] 073765 Chaya Castillo OTR [facility] 150 [place] [address] 06/19/2025 10:30 AM CLERK OPERATOR Virtual Visit [facility] Primary [address] 4th [place] [phone] Omar Carmona MD [address] [place] [address] 203165 Gerson Santos, MORENO 06/26/2025 11:00 AM CLERK OPERATOR Therapy Visit [facility] [address] [place] [phone] Jason Alvares MD [address] [place] [address] 553775 Chaya Castillo, OTR [address] [address] 07/09/2025 12:45 PM CLERK OPERATOR Therapy Visit [facility] [address] [place] [phone] Jason Alvares MD [address] [place] [address] 378605 Chaya Castillo, OTR [address] [address] 07/18/2025 3:00 PM CLERK OPERATOR Office Visit [facility] Heart Clinic [address] [phone] Adonay Chapman APRN [address] 269385 11/05/2025 12:30 PM CDT Lab [facility] Lab [address]st [place] [phone] 11/05/2025 1:45 PM CDT Office Visit [facility] Dermatology Clinic [address]rd [place] [phone] Gavi Nieto PA-C Dermatology [address] [place] [address] 11/20/2025 10:30 AM CDT Virtual Visit [address] [address] Marquise Hanley MD 909 [place] [address] documented as of this encounter Goals Goal [...] documented as of this encounter Care Teams Tree Faller Relationship Specialty Start Date End Date Rio Jaquez MD 9 [facility] [place] 4 [place] [address] PCP - General Family Practice 12/02/10 07/13/24 Omar Carmona MD [address] [place] [address]298 PCP - General Family Medicine 07/14/24 Barry Kilpatrick MD [address] [place] [address] [id number] [place] [address] Neurology 07/19/14 Michelle Henderson I, RN Nurse Coordinator Neurology 07/19/14 Rio Jaquez MD [address] [place] [address] 018685 Family Practice 10/15/14 Jemima Jaramillo MD mission systems engineer 11/20/14 Kelley Chin, TANIA [address] 941385 Nurse Coordinator Cardiology 11/04/15 Sydnee Saleem MD [address] [place] [address] 508 [place], [place] 286375 Cardiology 11/04/15 Karlene Moya MD [address] [place] [address] [phone] Ophthalmology 06/24/17 Wilbert Quintero, OD [address] [place] [address] 592745 Optometry 06/24/17 Rod Gauthier DPM [address] [place] [address] 461195 Ram Car Operator Primary Podiatric Medicine 06/21/18 Nallely Hogue, RN Registered Nurse 02/20/19 11/23/22 Larisa Vargas, TANIA Specialty Manufacturing Executive Cardiology 04/18/19 03/06/22 Rio Jaquez MD [address] [place] [address] 015035 Assigned PCP 5/21/20 4/10/21 Ruth Yarbrough MD 420 [facility] 101 [place] [address] Assigned Endocrinology Provider 05/31/20 09/28/20 Francisco Lott MD [address] [place] [address] 88 [place], [place] 038705 Assigned Rheumatology Provider 05/31/20 12/13/21 Frida Grace MD [address] [place] [address] JASON ANDERSON [address]3296 Assigned Pediatric Specialist Provider 05/31/20 09/08/20 Sydnee Saleem MD [address] [place] [address] Assigned Heart and Vascular Provider 05/31/20 10/22/20 Greg Ortega MD [address] [place] [address]797 Assigned Surgical Provider 06/23/20 12/06/21 Frida Grace MD [address] [place] [address] JASON ANDERSON [address]308 Assigned Surgical Provider 05/31/20 06/22/20 Jan Mahmood MD [address] [address] Gastroenterology 11/05/20 [place] [address] [place] [address] Resident 11/05/20 Jan Mahmood MD [address] [facility] PWB [address]A [place], [place] 569205 Assigned Gastroenterology Provider 12/01/20 Rio Jaquez MD [address] [facility] 4 [place], [place] 068445 Assigned PCP 11/17/20 09/30/24 Dom Eason MD 717 [facility] 353 [place] [address] Internal Medicine 12/02/20 Jayla Plaza, RN Specialty Manufacturing Executive Hepatology 01/09/21 02/13/24 Jayla Plaza, RN Specialty Manufacturing Executive Hepatology 01/10/21 01/10/21 Sydnee Saleem MD [address] [place] [address] [phone] Assigned Heart and Vascular Provider 02/02/21 07/24/22 Phan Coello MD Assigned Neuroscience Provider 02/21/21 11/22/21 Cristian Barragan MD 2945 [place] [address] Assigned Infectious Disease Provider 02/21/21 03/06/22 Dom Eason MD 717 [facility] 353 [place], [place] 959634 Assigned Nephrology Provider 04/20/21 01/02/22 Jaimie Vernon, RN Specialty Manufacturing Executive Cardiology 10/28/21 Ruth Riddle DPM, Podiatry/Foot and Ankle Surgery [address] R[place]IG[place]Z [address] [place] [address]89 Assigned Musculoskeletal Provider 11/30/21 09/30/23 Luis Arrington MD [address] [place] [address] 8[address]93 Assigned Neuroscience Provider 11/23/21 01/02/22 Jason Alvares MD [address] [place] [address] Assigned Neuroscience Provider 01/03/22 05/15/22 Marquise Hanley MD [address] [place] [address] 67[address] Endocrinology, Diabetes, and Metabolism 03/05/22 Vlad Ramey MD [address] [place] [address] 86546 Cardiovascular Disease 05/07/22 Joesph Crowe MD [address] [place] [address] 58921 Surgery 05/07/22 Luis Arrington MD [address] [place] [address] 87172 Assigned Neuroscience Provider 05/16/22 05/14/23 Michelle Padilla RN Specialty Manufacturing Executive Cardiology 07/03/22 Vlad Ramey MD [address] [place] [address] [place] [address] Assigned Heart and Vascular Provider 07/25/22 05/28/23 Marquise Hanley MD [address] [place] [address] 9[address]84 Assigned Endocrinology Provider 08/15/22 Dom Eason MD 717 [facility] MICHAEL 353 [place] [address] Assigned Nephrology Provider 11/28/22 02/19/23 Wagner Oliver MD 6401 [place] [address] Critical Care 12/15/22 Laura Epperson NP [address] [place] [address] 1932 [place] [address] Assigned Nephrology Provider 02/20/23 08/30/24 Thom Taveras MD [address] [place] [address] Assigned Cancer Care Provider 02/06/23 08/20/23 Joesph Crowe MD [address] [place] [address] 82512 Surgery 03/17/23 Joesph Crowe MD [address] [place] [address] 17034 Assigned Surgical Provider 04/03/23 09/30/24 Adonay Haq MD [address] [place] [address] 72764 Internal Medicine 06/14/23OctoberDenilson MD [address] [facility] [address] [place] [address] Assigned Heart and Vascular Provider 05/29/23 11/28/24 Jason Alvares MD 420 [facility] 295 [place], [place] 949295 Assigned Neuroscience Provider 05/15/23 11/28/24 Ruth Riddle DPM, Podiatry/Foot and Ankle Surgery [address] [place], [place] 266677 Assigned Musculoskeletal Provider 10/22/23 Jignesh Mathias MD [address] [place] [address] 516685 Gastroenterology 09/25/24 Adonay Haq MD [address] [place] [address] 38718 Assigned PCP 10/01/24 12/28/24 Omar Carmona MD [address] [place] [address] 68[address] Assigned PCP 12/29/24 Jason Alvares MD [address] [address] Assigned Neuroscience Provider 12/29/24 Jignesh Mathias MD 909 [place] [address] Assigned Surgical Provider 12/29/24 Ayad Lopez, PhD LP [address] [place] [address] Assigned Behavioral Health Provider 02/28/25 Gavi Nieto PA-C [address] [place] [address] 481175 Physician Instructor Physical Education Dermatology 03/19/25 documented as of this encounter
--- OUTSIDE RECORDS SUMMARY | 2025-06-08 22:46 | XMS_ITS | Encounter Summary ---
Author Organization [place] Address [address] [place] [address] Care Team Providers Care Coal Passer Name Role Phone Rio Jaquez MD Primary Care Provider [phone] Barry Kilpatrick MD Unavailable Michelle Henderson RN Unavailable [phone] Rio Jaquez MD Unavailable +[phone] Jemima Jaramillo MD Unavailable Unavai Kelley Bautista RN Unavailable +[phone] Sydnee Saleem MD Unavailable +[phone] Karlene Moya MD Unavailable +[phone] Wilbert Quintero OD Unavailable +[phone] Rod GauthierM Unavailable + [phone] Kerrie Verdin PA-C Unavailable +[phone] Nallely Hogue RN Unavailable Unavailable Larisa Vargas RN Unavailable Unavailable Rio Jaquez MD Unavailable +[phone] Ruth Yarbrough MD Unavailable +[phone] Francisco Lott MD Unavailable +[phone] rFida Grace MD Unavailable +[phone] Sydnee Saleem MD Unavailable +[phone] Greg Ortega MD Unavailable +[phone] Frida Grace MD Unavailable +[phone] Jan [...] Unavailable +[phone] Dom Eason MD Unavailable +[phone] Wagner Oliver MD Unavailable Laura Epperson NP Unavailable +[phone] Thom Taveras MD Unavailable +[phone] Joesph Crowe MD Unavailable +[phone] Joesph Crowe MD Unavailable +[phone] Adonay Haq MD Unavailable +[phone] Denilson Srinivasan MD Unavailable +[phone] Jason Alvares MD Unavailable Ruth Riddle DPM, Podiatry /Foot and Ankle Surgery Unavailable Omar Carmona MD Primary Care Provider [phone] Jignesh Mathias MD Unavailable Adonay Haq MD Unavailable +[phone] Omar Carmona MD Unavailable +[phone] Jason Alvares MD Unavailable Jignesh Mathias MD Unavailable Ayad Lopez PhD LP Unavailable +[phone] Gavi Nieto PA-C Unavailable +[phone] Encounter Details Date Type Department Care Team (Late st Contact Info) Description 04/04/2019 [facility] Medical Advice [facility] Surgical Weight Management 909 [facility] SE 4th [place] [address] Ruth Yarbrough MD [address] [place] [address] Social History Tobacco Use Types Packs/Day Years Used Date Smoking Tobacco: Every Day Cigarettes 1 42.8 Started: 08/09/1982 Smokeless Tobacco: Never Alcohol Use Standard Drinks/Week Comments Yes 0 (1 standard drink = 0.6 oz pur e alcohol) occ Comments No Sex and Gender Information Value Date Recorded Sex Assigned at Female 09/12/2020 12:05 PM DANCING TEACHER Legal Sex Female 3:26 AM DANCING TEACHER Gender Identity Female 09/12/2020 12:05 PM DANCING TEACHER Sexual Orientation Straight 12/19/2021 10 :44 AM CDT Occupation Industry Job Start Date Job End Date on disability for FMS Not on file Not on file Not on file documented as of this encounter Plan of Treatment Upcoming Encounters Date Type Department Care Team (Late st Contact Info) Description 06/13/2025 6:00 PM DANCING TEACHER Ancillary Procedure [facility] CT Clinic [address] [phone] Omar Carmona MD [address] [place] [address] 701535 06/14/2025 4:00 PM DANCING TEACHER Office Visit [facility] [address] [phone] Omar Carmona MD [address] [place] [address] [phone] 06/15/2025 12:45 PM DANCING TEACHER Therapy Visit [facility] [address] [phone] Jason Alvares MD [address] [place] [address] 023925 Chaya Castillo, WESR [address] 899837 06/19/2025 10:30 AM DANCING TEACHER Virtual Visit [facility] [address] [phone] Omar Carmona MD [address] [place] [address] [phone] Cecelia Santoschinyere MORENO 06/26/2025 11:00 AM DANCING TEACHER Therapy Visit [facility] 150 [place] [phone] Jason Alvares MD [address] [place] [address] 465885 Chaya Castillo, OTR FV [address] [address] 07/09/2025 12:45 PM DANCING TEACHER Therapy Visit [address] [phone] Jason Alvares MD [address] [place] [address] Chaya Castillo, OTR FV [address] [address] 07/18/2025 3:00 PM DANCING TEACHER Office Visit [facility] [address] [phone] Adonay Chapman APRN [facility] 500 [place], [place] 590395 11/05/2025 12:30 PM CDT Lab [facility] [address] 1st [place] [phone] 11/05/2025 1:45 PM CDT Office Visit [facility] Dermatology Clinic [address] 3rd [place] [phone] Gavi Nieto PA-C Dermatology [address] [place] [address] [phone] 11/20/2025 10:30 AM CDT Virtual Visit [address] [address] Marquise Hanley MD 9 [place] [address] documented as of this encounter Goals Goal [...] Depression Total Score: 10 019 7:06 AM DANCING TEACHER documented as of this encounter Care Teams Coal Passer Relationship Specialty Start Date End Date Rio Jaquez MD [address] [place] [address] 4 [place] [address] PCP - General Family Practice 12/02/10 07/13/24 Omar Carmona MD [address] [place] [address] PCP - General Family Medicine 07/14/24 Barry Kilpatrick MD [address] [place] [address] [place]B1994[place] [address] Neurology 07/19/14 Michelle Henderson I, RN Nurse Coordinator Neurology 07/19/14 Rio Jaquez MD [address] [place] [address] 501235 Family Practice 10/15/14 Jemima Jaramillo MD leaf size picker 11/20/14 Kelley Chin, TANIA [address] 949275 Nurse Coordinator Cardiology 11/04/15 Sydnee Saleem MD [address] [place] [address] 508 [place], [place] 920465 Cardiology 11/04/15 Karlene Moya MD [address] [place] [address] 317295 Ophthalmology 06/24/17 Wilbert Quintero, OD [address] [place] [address] 435175 Optometry 06/24/17 Rod Gauthier DPM [address] [place] [address] 723185 Film Drying Machine Operator Primary Podiatric Medicine 06/21/18 Kerrie Verdin PA-C [address] [place] [address] 63655 Physician Painter Supervisor Physician Painter Supervisor 06/21/1808/07 Nallely Hogue, RN Registered Nurse 02/20/19 11/23/22 Larisa Vargas, TANIA Specialty Glaucoma Specialist Cardiology 04/18/19 03/06/22 Rio Jaquez MD [address] [place] [address] 648335 Assigned PCP 12/28/19 11/16/20 Ruth Yarbrough MD [address] [place] [address] 101 [place] [address] Assigned Endocrinology Provider 05/31/20 09/28/20 Francisco Lott MD [address] [place] [address] 401[address] Assigned Rheumatology Provider 05/31/20 12/13/21 Frida Grace MD [address] [place] [address] [address] [place] [address] Assigned Pediatric Specialist Provider 05/31/20 09/08/20 Sydnee Saleem MD [address] [place] [address]69 Assigned Heart and Vascular Provider 05/31/20 10/22/20 Greg Ortega MD [address] [place] [address] 8[address]25 Assigned Surgical Provider 06/23/20 12/06/21 Frida Grace MD [address] [place] [address] [address] [place] [address] Assigned Surgical Provider 05/31/20 06/22/20 Jna Mahmood MD [address] [address] Gastroenterology 11/05/20 Brandt Quintana MD [address] [place] [address] Resident 11/05/20 Jan Mahmood MD 516 [facility] [address] [place] [address] Assigned Gastroenterology Provider 12/01/20 Rio Jaquez MD 909 [facility] 4 [place], [place] 460585 Assigned PCP 11/17/20 09/30/24 Dom Eason MD [address] [place] [address] 353 [place] [address] Internal Medicine 12/02/20 Jayla Plaza, RN Specialty Glaucoma Specialist Hepatology 01/09/21 02/13/24 Jayla Plaza, RN Specialty Glaucoma Specialist Hepatology 01/10/21 01/10/21 Sydnee Saleem MD [address] [place] [address] [phone] Assigned Heart and Vascular Provider 02/02/21 07/24/22 Phan Coello MD Assigned Neuroscience Provider 02/21/21 11/22/21 Cristian Barragan MD [address]45 [place] [address] Assigned Infectious Disease Provider 02/21/21 03/06/22 Dom Eason MD [address] [place] [address] 353 [place] [address] Assigned Nephrology Provider 04/20/21 01/02/22 Jaimie Vernon, RN Specialty Glaucoma Specialist Cardiology 10/28/21 Ruth Riddle DPM, Podiatry/Foot and Ankle Surgery [address] [place] [address] Assigned Musculoskeletal Provider 11/30/21 09/30/23 Luis Arrington MD [address] [place] [address] Assigned Neuroscience Provider 11/23/21 01/02/22 Jason Alvares MD [address] [place] [address] Assigned Neuroscience Provider 01/03/22 05/15/22 Marquise Hanley MD [address] [place] [address] Endocrinology, Diabetes, and Metabolism 03/05/22 Vlad Ramey MD [address] [place] [address] 58866 Cardiovascular Disease 05/07/22 Joesph Crowe MD [address] [place] [address] 29081 Surgery 05/07/22 Luis Arrington MD [address] [place] [address] 68201 Assigned Neuroscience Provider 05/16/22 05/14/23 Michelle Padilla RN Specialty Glaucoma Specialist Cardiology 07/03/22 Vlad Ramey MD 909 [place] [address] Assigned Heart and Vascular Provider 07/25/22 05/28/23 Marquise Hanley MD 909 [place] [address] Assigned Endocrinology Provider 08/15/22 Dom Eason MD 717 [facility] MICHAEL 353 [place] [address] Assigned Nephrology Provider 11/28/22 02/19/23 Wagner Oliver MD 6401 [facility] [place] [address] Critical Care 12/15/22 Laura Epperson NP 7 [facility] 1932 [place] [address] Assigned Nephrology Provider 02/20/23 08/30/24 Thom Taveras MD [address] [place] [address] Assigned Cancer Care Provider 02/06/23 08/20/23 Joesph Crowe MD [address] [place] [address] 73666 Surgery 03/17/23 Joesph Crowe MD [address] [place] [address] 49572 Assigned Surgical Provider 04/03/23 09/30/24 Adonay Haq MD [address] [place] [address] 14187 Internal Medicine 06/14/23OctoberDenilson MD [address] [facility] [address] [place] [address] Assigned Heart and Vascular Provider 05/29/23 11/28/24 Jason Alvares MD [address] [phone] Assigned Neuroscience Provider 05/15/23 11/28/24 Ruth Riddle, DPM, Podiatry/Foot and Ankle Surgery [address] [place] [address] Assigned Musculoskeletal Provider 10/22/23 Jignesh Mathias MD [address] [place] [address] 142075 Gastroenterology 09/25/24 Adonay Haq MD [address] [place] [address] 86608 Assigned PCP 10/01/24 12/28/24 Omar Carmona MD [address] [place] [address] 21094 Assigned PCP 12/29/24 Jason Alvares MD [address] 300895 Assigned Neuroscience Provider 12/29/24 Jignesh Mathias MD [address] [place] [address] [phone] Assigned Surgical Provider 12/29/24 Ayad Lopez, PhD LP [address] [place] [address] 107255 Assigned Behavioral Health Provider 02/28/25 Gavi Nieto PA-C [address] [place] [address] [phone] Physician Painter Supervisor Dermatology 03/19/25 documented as of this encounter
--- OUTSIDE RECORDS SUMMARY | 2025-06-08 22:46 | XMS_ITS | Encounter Summary ---
Author Organization [facility] Address [address] [place] [address] 9[address] Care Team Providers Care Wireless Sales Consultant Name Role Phone Barry Kilpatrick MD Unavailable Michelle Henderson RN Unavailable [phone] Rio Jaquez MD Unavailable +[phone] Jemima Jaramillo MD Unavailable Unavai Kelley Bautista RN Unavailable +[phone] Sydnee Saleem MD Unavailable +[phone] Karlene Moya MD Unavailable +[phone] Wilbert Quintero OD Unavailable +[phone] Rod Gauthier DPM Unavailable +[phone] Jan Mahmood MD Unavailable +[phone] Brandt Quintana MD Unavailable [phone] Jan Mahmood MD Unavailable +[phone] Dom Eason MD Unavailable +[phone] Jaimie Vernon RN Unavailable Unavailable Marquise Hanley MD Unavailable +[phone] Vlad Ramey MD Unavailable +[phone] Joesph Crowe MD Unavailable Michelle Padilla RN Unavailable Unavaila ble Marquise Hanley MD Unavailable +[phone] Wagner Oliver MD Unavailable [phone] Joesph Crowe MD Unavailable Adonay Haq MD Unavailable [phone] Ruth Riddle DPM, Podiatry /Foot and Ankle Surgery Unavailable Omar Carmona MD Primary Care Provider [phone] Jignesh Mathias MD Unavailable Omar Carmona MD Unavailable +[phone] Jason Alvares MD Unavailable Jignesh Mathias MD Unavailable Ayad Lopez PhD LP Unavailable +[phone] Gavi Nieto PA-C Unavailable +[phone] Encounter Details Date Type Department Care Team (Late st Contact Info) Description 02/16/2025 [facility] [place] [facility] Adv[place] [facility] [address] [facility] [address] [place] [address] [place] [address] [place] [address] Social History Tobacco Use Types [...] than three times a week 08/27/2021 Attends Jainism Services Not on file 08/27 Do you [...] Answer Date Recorded PHQ-2 Score 3 12/04/2024 [facility] of Occupat ional [...] Sex Assigned at Female 09/12/2020 12:05 PM BIG DATA ADMIN Legal Sex Female 3:26 AM BIG DATA ADMIN Gender Identity Female 09/12/2020 12:05 PM BIG DATA ADMIN Sexual Orientation Straight 12/19/2021 10 :44 AM CDT Occupation Industry Job Start Date Job End Date on disability for FMS Not on file Not on file Not on file disabled Not on file Not on file Not on file documented as of this encounter Plan of Treatment Upcoming Encounters Date Type Department Care Team (Late st Contact Info) Description 06/13/2025 6:00 PM BIG DATA ADMIN Ancillary Procedure [facility] Imaging Center CT Clinic [address] [place] [phone] Omar Carmona MD [address] [place] [address] 06/14/2025 4:00 PM BIG DATA ADMIN Office Visit [facility] Primary Care Clinic [address] [place] [phone] Omar Carmona MD [address] [place] [address] 06/15/2025 12:45 PM BIG DATA ADMIN Therapy Visit [facility] [address] [place] [address] Jason Alvares MD [address] [place] [address] 537945 Chaya Castillo, OTR [facility] [address] [place], [place] 918847 06/19/2025 10:30 AM BIG DATA ADMIN Virtual Visit [facility] [address] [place] [address] 4th [place] [address] Omar Carmona MD [address] [place] [address] Gerson Santos [facility] 06/26/2025 11:00 AM BIG DATA ADMIN [facility] [address] [place] [phone] Jason Alvares MD [address] [place] [address] 146055 Chaya Castillo, OTR [facility] [address] [place] [address] 07/09/2025 12:45 PM BIG DATA ADMIN Therapy [facility] [address] [place] [phone] Jason Alvares MD [address] [place] [address] 715655 Chaya Castillo, OTR [facility] [place] [address] [place] [address] 07/18/2025 3:00 PM BIG DATA ADMIN Office Visit [facility] Heart Clinic [address] [phone] Adonay Chapman APRN PAPER SAMPLE CLERK [address] [place] [address] 11/05/2025 12:30 PM CDT Lab [facility] Lab [address] [place] [phone] 11/05/2025 1:45 PM CDT Office Visit [facility] Dermatology Clinic [address] [place] [phone] Gavi Nieto PA-C Dermatology [address] [place] [address] [id number] 11/20/2025 10:30 AM CDT Virtual Visit [address] [place] [address] Marquise Hanley MD [address] [place] [address]23 documented as of this encounter Goals Goal [...] documented as of this encounter Care Teams Wireless Sales Consultant Relationship Specialty Start Date End Date Omar Carmona MD [address] [place] [address] 31772 PCP - General Family Medicine 07/14/24 Barry Kilpatrick MD [address] [place] [address] [id number] [place], [place] 518975 Neurology 07/19/14 Michelle Henderson I, RN Nurse Coordinator Neurology 07/19/14 Rio Jaquez MD [address] [place] [address] 231105 Family Practice 10/15/14 Jemima Jaramillo MD [address] [place] [address] 39444 insole coverer 11/20/14 Kelley Chin, TANIA [address] 015335 Nurse Coordinator Cardiology 11/04/15 Sydnee Saleem MD [address] [place] [address] 508 [place], [place] [phone] Cardiology 11/04/15 Karlene Moya MD [address] [place] [address] [phone] Ophthalmology 06/24/17 Wilbert Quintero, OD [address] [place] [address] 320895 Optometry 06/24/17 Rod Gauthier DPM [address] [place] [address] 337015 Alliance Manager Primary Podiatric Medicine 06/21/18 Jan Mahmood MD [address] [place], [place] [address]B 2[address] [place], [place] 353045 Gastroenterology 11/05/20 Brandt Quintana MD 14[address] [place] [address] Resident 11/05/20 Jan Mahmood MD [address] [address] Assigned Gastroenterology Provider 12/01/20 Dom Eason MD [address] [address] Internal Medicine 12/02/20 Jaimie Vernon, RN Specialty Manager Underwriting Cardiology 10/28/21 Marquise Hanley MD [address] [place] [address] 46205 Endocrinology, Diabetes, and Metabolism 03/05/22 Vlad Ramey MD [address] [place] [address] 53769 Cardiovascular Disease 05/07/22 Joesph Crowe MD [address] [place] [address] 69887 Surgery 05/07/22 Michelle Padilla RN Specialty Manager Underwriting Cardiology 07/03/22 Marquise Hanley MD [address] [place] [address] 98660 Assigned Endocrinology Provider 08/15/22 Wagner Oliver MD [address] [place] [address] Critical Care 12/15/22 Joesph Crowe MD [address] [place] [address] 82619 Surgery 03/17/23 Adonay Haq MD [address] [place] [address] 70140 Internal Medicine 06/14/23 Ruth Riddle DPM, Podiatry/Foot and Ankle Surgery [address] [address] Assigned Musculoskeletal Provider 10/22/23 Jignesh Mathias MD [address] [place] [address] 83935 Gastroenterology 09/25/24 Omar Carmona MD [address] [place] [address] 17205 Assigned PCP 12/29/24 Jason Alvares MD [address] [place] [address] 45238 Assigned Neuroscience Provider 12/29/24 Jignesh Mathias MD [address] [place] [address] 80329 Assigned Surgical Provider 12/29/24 Ayad Lopez, PhD LP [address] [place] [address] 11955 Assigned Behavioral Health Provider 02/28/25 Gavi Nieto PA-C [address] [place] [address] Physician Rigging Worker Dermatology 03/19/25 documented as of this encounter
--- OUTSIDE RECORDS SUMMARY | 2025-06-08 22:46 | XMS_ITS | Encounter Summary ---
Author Organization [facility] Address [address] [place] [address] Care Team Providers Care Airline Stewardess Name Role Phone Rio Jaquez MD Primary Care Provider Barry Kilpatrick MD Unavailable Michelle Henderson I RN Unavailable [phone] Rio Jaquez MD Unavailable [phone] Jemima Jaramillo MD Unavailable Unavai Kelley Bautista RN Unavailable [phone] Sydnee Saleem MD Unavailable [phone] Karlene Moya MD Unavailable [phone] Wilbert Quintero OD Unavailable +[phone] Rod Gauthier DPM Unavailable Jan Mahmood MD Unavailable [phone] Brandt Quintana MD Unavailable Jan Mahmood MD Unavailable +[phone] Rio Jaquez MD Unavailable [phone] Dom Eason MD Unavailable Jayla Plaza RN [...] Unavailable +[phone] Dom Eason MD Unavailable +[phone] Wagner Oliver MD Unavailable +[phone] Laura Epperson NP Unavailable +[phone] Thom Taveras MD Unavailable +[phone] Joesph Crowe MD Unavailable +[phone] Joesph Crowe MD Unavailable +[phone] Adonay Haq MD Unavailable +[phone] Denilson Srinivasan MD Unavailable + [phone] Jason Alvares MD Unavailable Ruth Riddle DPM, Podiatry /Foot and Ankle Surgery Unavailable Omar Carmona MD Primary Care Provider [phone] Jignesh Mathias MD Unavailable Adonay Haq MD Unavailable +[phone] Omar Carmona MD Unavailable [phone] Jason Alvares MD Unavailable Jignesh Mathias MD Unavailable Ayad Lopez PhD LP Unavailable +[phone] Gavi NietoC Unavailable [phone] Encounter Details Date Type Department Care Team (Late st Contact Info) Description 01/27/2023 [facility] [place] Medical Advice [facility] Hepatology Clinic [address] [address] Lizbeth Lopes Social History Tobacco Use Types Packs/Day Years Used Date Smoking Tobacco: Every Day Cigarettes 0.5 42.8 Started: 08/09/1982 Smokeless Tobacco: Never Alcohol [...] or ex-partner? No 08/27/2021 Social Connection and Isolation Panel Answer Date [...] any clubs o r organizations such as restorationist groups, unions, fraternal or athletic groups, or [...] Answer Date Recorded PHQ-2 Score 1 01/27/2023 [facility] of Occupat [...] Sex Assigned at Female 09/12/2020 12:05 PM ELECTROFORMER Legal Sex Female 3:26 AM ELECTROFORMER Gender Identity Female 09/12/2020 12:05 PM ELECTROFORMER Sexual Orientation Straight 12/19/2021 10 :44 AM [...] st Contact Info) Description 06/13/2025 6:00 PM ELECTROFORMER Ancillary Procedure [facility] Imaging Center CT Clinic [address] [phone] Omar Carmona MD [address] [place] [address] 966665 06/14/2025 4:00 PM ELECTROFORMER Office Visit [facility] Care [address] [place] [phone] Omar Carmona MD [address] [place] [address] 06/15/2025 12:45 PM ELECTROFORMER Therapy Visit [facility] Rehabilitation Services [facility] 150 [place] [address] Jason Alvares MD [address] [place] [address] 295 [place], [place] 046205 Chaya Castillo OTR [facility] 150 [place] [address] 06/19/2025 10:30 AM ELECTROFORMER Virtual Visit [facility] Primary Care [address] [place] [phone] Omar Carmona MD [address] [place] [address] 447635 Gerson Santos, [facility] 06/26/2025 11:00 AM ELECTROFORMER Therapy Visit [address] [phone] Jason Alvares MD [address] [place] [address] 075695 Chaya Castillo, OTR [address] [address] 07/09/2025 12:45 PM ELECTROFORMER Therapy Visit [address] [phone] Jason Alvares MD [address] [place] [address] 306715 Chaya Castillo, OTR [address] [address] 07/18/2025 3:00 PM ELECTROFORMER Office Visit [facility] Heart Clinic [address] [phone] Adonay Chapman APRN [address] 300145 11/05/2025 12:30 PM CDT Lab [facility] Lab [address] [place] [phone] 11/05/2025 1:45 PM CDT Office Visit [facility] Dermatology Clinic [address] [place] [phone] Gavi Nieto PA-C Dermatology [address] [place] [address] 11/20/2025 10:30 AM CDT Virtual Visit [address] [phone] Marquise Hanley MD 909 [place] [address] documented as of this encounter Goals Goal [...] documented as of this encounter Care Teams Airline Stewardess Relationship Specialty Start Date End Date Rio Jaquez MD [address] [facility] 4 [place] [address] PCP - General Family Practice 12/02/10 07/13/24 Omar Carmona MD [address] [place] [address] 32698 PCP - General Family Medicine 07/14/24 Barry Kilpatrick MD [address] [place] [address] [id number] [place] [address] Neurology 07/19/14 Michelle Henderson I, RN Nurse Coordinator Neurology 07/19/14 Rio Jaquez MD [address] [place] [address] 4 [place], [place] 871385 Family Practice 10/15/14 Jemima Jaramillo MD welding machine operator submerged arc 11/20/14 Kelley Chin, TANIA [address] 781405 Nurse Coordinator Cardiology 11/04/15 Sydnee Saleem MD [address] [place] [address] 508 [place], [place] 114205 Cardiology 11/04/15 Karlene Moya MD [address] [address] [phone] Ophthalmology 06/24/17 Wilbert Quintero, OD [address] [place] [address] 795395 Optometry 06/24/17 Rod Gauthier DPM [address] [place] [address] 392275 Natural Resources Instructor Primary Podiatric Medicine 06/21/18 Jan Mahmood MD [address] [place] [address] 2A [place], [place] 741735 Gastroenterology 11/05/20 Brandt Quintana MD [address] [place] [address] 8[address]37 Resident 11/05/20 Jan Mahmood MD 516 [facility] 2A [place] [address] Assigned Gastroenterology Provider 12/01/20 Rio Jaquez MD [address] [place] [address] 706145 Assigned PCP 11/17/20 09/30/24 Dom Eason MD [address] [place] [address] 353 [place] [address] Internal Medicine 12/02/20 Jayla Plaza, RN Specialty Vice President Of Human Resources Hepatology 01/09/21 02/13/24 Jaimie Vernon, RN Specialty Vice President Of Human Resources Cardiology 10/28/21 Ruth Riddle DPM, Podiatry/Foot and Ankle Surgery [address] [address] Assigned Musculoskeletal Provider 11/30/21 09/30/23 Marquise Hanley MD [address] [place] [address] Endocrinology, Diabetes, and Metabolism 03/05/22 Vlad Ramey MD [address] [place] [address] 358845 Cardiovascular Disease 05/07/22 Joesph Crowe MD [address] [place] [address] 783005 Surgery 05/07/22 Luis Arrington MD [address] [place] [address] Assigned Neuroscience Provider 05/16/22 05/14/23 Michelle Padilla, TANIA Specialty Vice President Of Human Resources Cardiology 07/03/22 Vlad Ramey MD [address] [place] [address] 53469 Assigned Heart and Vascular Provider 07/25/22 05/28/23 Marquise Hanley MD [address] [place] [address] 63689 Assigned Endocrinology Provider 08/15/22 Dom Eason MD [address] [place] [address] Assigned Nephrology Provider 11/28/22 02/19/23 Wagner Oliver MD [address] [place] [address] Critical Care 12/15/22 Laura Epperson NP [address] [place] [address] 1932 [place] [address] Assigned Nephrology Provider 02/20/23 08/30/24 Thom Taveras MD [facility] [address], [address] [place] [address] Assigned Cancer Care Provider 02/06/23 08/20/23 Joesph Crowe MD [address] [place] [address] 9[address]87 Surgery 03/17/23 Joesph Crowe MD [address] [place] [address] 85413 Assigned Surgical Provider 04/03/23 09/30/24 Adonay Haq MD [address] [place] [address] 13262 Internal Medicine 06/14/23OctoberDenilson MD 6[address] [facility] CLEO Black [facility] [address] [place] [address] Assigned Heart and Vascular Provider 05/29/23 11/28/24 Jason Alvares MD [address] [place] [address] 12112 Assigned Neuroscience Provider 05/15/23 11/28/24 Ruth Riddle DPM, Podiatry/Foot and Ankle Surgery [address] [facility] 300 [place], [place] 863067 Assigned Musculoskeletal Provider 10/22/23 Jignesh Mathias MD [address] [place] [address] 23566 Gastroenterology 09/25/24 Adonay Haq MD [address] [place] [address] 37471 Assigned PCP 10/01/24 12/28/24 Omar Carmona MD [address] [place] [address] 860395 Assigned PCP 12/29/24 Jason Alvares MD [address] [place] [address] 515285 Assigned Neuroscience Provider 12/29/24 Jignesh Mathias MD [address] [place] [address] 441515 Assigned Surgical Provider 12/29/24 Ayad Lopez, PhD LP [address] [place] [address] 067345 Assigned Behavioral Health Provider 02/28/25 Gavi Nieto PANavinC [address] [place] [address] 706115 Physician Surveillance Director Dermatology 03/19/25 documented as of this encounter
--- OUTSIDE RECORDS SUMMARY | 2025-06-08 22:46 | XMS_ITS | Encounter Summary ---
Author Organization [facility] Address [address] [place] [address] 47627 Care Team Providers Care Hydrogenation Still Operator Name Role Phone Rio Jaquez MD Primary Care Provider [phone] Barry Kilpatrick MD Unavailable Michelle Henderson RN Unavailable [phone] Rio Jaquez MD Unavailable +[phone] Jemima Jaramillo MD Unavailable Unavai Kelley Bautista RN Unavailable +[phone] Sydnee Saleem MD Unavailable +[phone] Karlene Moya MD Unavailable +[phone] Wilbert Quintero OD Unavailable +[phone] Rod GauthierM Unavailable + [phone] Kerrie Verdin PA-C Unavailable +[phone] Nallely Hogue RN Unavailable Unavailable Larisa Vargas RN Unavailable Unavailable Rio Jaquez MD Unavailable +[phone] Ruth Yarbrough MD Unavailable +[phone] Francisco Lott MD Unavailable +[phone] Frida Grace MD Unavailable +[phone] Sydnee Saleem MD Unavailable +[phone] Greg Ortega MD Unavailable +[phone] Frida Grace MD Unavailable +[phone] Jan [...] Unavailable +[phone] Dom Eason MD Unavailable +[phone] Wagner Oliver MD Unavailable +[phone] Laura Epperson NP Unavailable +[phone] Thom Taveras MD Unavailable +[phone] Joesph Crowe MD Unavailable +[phone] Joesph Crowe MD Unavailable +[phone] Adonay Haq MD Unavailable +[phone] Denilson Srinivasan MD Unavailable +[phone] Jason Alvares MD Unavailable Ruth Riddle DPM, Podiatry /Foot and Ankle Surgery Unavailable Omar Carmona MD Primary Care Provider [phone] Jignesh Mathias MD Unavailable Adonay Haq MD Unavailable +[phone] Omar Carmona MD Unavailable +[phone] Jason Alvares MD Unavailable Jignesh Mathias MD Unavailable Ayad Lopez PhD LP Unavailable +[phone] Gavi Nieto PA-C Unavailable +[phone] Encounter Details Date Type Department Care Team (Late st Contact Info) Description 03/08/2019 [facility]ination, Ambulatory [address] [place] [address] Lizbeth Lopes Social History Tobacco Use Types Packs/Day Years Used Date Smoking Tobacco: Every Day Cigarettes 1 42.8 Started: 08/09/1982 Smokeless Tobacco: Never Alcohol Use Standard Drinks/Week Comments Yes 0 (1 standard drink = 0.6 oz pur e alcohol) occ Comments No Sex and Gender Information Value Date Recorded Sex Assigned at Female 09/12/2020 12:05 PM HEAD STOCK TRANSFER CLERK Legal Sex Female 3:26 AM HEAD STOCK TRANSFER CLERK Gender Identity Female 09/12/2020 12:05 PM HEAD STOCK TRANSFER CLERK Sexual Orientation Straight 12/19/2021 10 :44 AM CDT Occupation Industry Job Start Date Job End Date on disability for FMS Not on file Not on file Not on file documented as of this encounter Plan of Treatment Upcoming Encounters Date Type Department Care Team (Late st Contact Info) Description 06/13/2025 6:00 PM HEAD STOCK TRANSFER CLERK Ancillary Procedure [facility] Imaging Center CT Clinic [address] [phone] Omar Carmona MD [address] [place] [address] [phone] 06/14/2025 4:00 PM HEAD STOCK TRANSFER CLERK Office Visit [facility] Primary Care [address] [phone] Omar Carmona MD [address] [place] [address] 752075 06/15/2025 12:45 PM HEAD STOCK TRANSFER CLERK Therapy Visit [facility] Rehabilitation Services [address] [phone] Jason Alvares MD 420 [facility] 295 [place], [place] [address] Chaya Castillo, OTR [facility] 150 [place] [address] 06/19/2025 10:30 AM HEAD STOCK TRANSFER CLERK Virtual Visit [facility] Primary Care [address] [phone] Omar Carmona MD [address] [place] [address] 974645 Gerson Santos RPH 06/26/2025 11:00 AM HEAD STOCK TRANSFER CLERK [facility] [address] [place] [phone] Jason Alvares MD [address] [place] [address] Chaya Castillo, OTR [address] [address] 07/09/2025 12:45 PM HEAD STOCK TRANSFER CLERK Therapy Visit [address] [phone] Jason Alvares MD [address] [place] [address] Chaya Castillo OTR [address] [address] 07/18/2025 3:00 PM HEAD STOCK TRANSFER CLERK Office Visit [facility] Heart [address] [phone] Adonay Chapman APRN [address] [address] 11/05/2025 12:30 PM CDT Lab [facility] Lab [address] [place] [phone] 11/05/2025 1:45 PM CDT Office Visit [facility] Dermatology Clinic [address] [place] [phone] Gavi Nieto PA-C Dermatology [address] [place] [address] 11/20/2025 10:30 AM CDT Virtual Visit [address] [place] [phone] Marquise Hanley MD 9 [place], [place] 9504[address] documented as of this encounter Goals Goal [...] Depression Total Score: 10 019 7:06 AM HEAD STOCK TRANSFER CLERK documented as of this encounter Care Teams Hydrogenation Still Operator Relationship Specialty Start Date End Date Rio Jaquez MD [address] [place] [address] PCP - General Family Practice 12/02/10 07/13/24 Omar Carmona MD [address] [place] [address] 84213 PCP - General Family Medicine 07/14/24 Barry Kilpatrick MD [address] [place] [address] [id number] [place] [address] Neurology 07/19/14 Michelle Henderson I, RN Nurse Coordinator Neurology 07/19/14 Rio Jaquez MD [address] [place] [address] 737[address] Family Practice 10/15/14 Jemima Jaramillo MD sales analyst 11/20/14 Kelley Chin, TANIA [facility] [address] [place], [place] 180955 Nurse Coordinator Cardiology 11/04/15 Sydnee Saleem MD [address] [place] [address] 508 [place] [address] Cardiology 11/04/15 Karlene Moya MD [address] [place] [address] Ophthalmology 06/24/17 Wilbert Quintero, OD [address] [place] [address] Optometry 06/24/17 Rod Gautheir DPM [address] [place] [address] 846155 Rack Maker Primary Podiatric Medicine 06/21/18 Kerrie Verdin PA-C [address] [place] [address] Physician Tankman Physician Tankman 06/21/1808/07 Nallely Hogue, RN Registered Nurse 02/20/19 11/23/22 Larisa Vargas, TANIA Specialty Reverse Engineer Cardiology 04/18/19 03/06/22 Rio aJquez MD [address] [place] [address] 959005 Assigned PCP 12/28/19 11/16/20 Ruth Yarbrough MD 420 [facility] 101 [place] [address] Assigned Endocrinology Provider 05/31/20 09/28/20 Francisco Lott MD 515 [facility] 88 [place] [address] Assigned Rheumatology Provider 05/31/20 12/13/21 [place] [address] [place] [address] JASON ANDERSON [address] Assigned Pediatric Specialist Provider 05/31/20 09/08/20 Sydnee Saleem MD [address] [address] Assigned Heart and Vascular Provider 05/31/20 10/22/20 Greg Ortega MD [address] [place] [address]1961 Assigned Surgical Provider 06/23/20 12/06/21 [place] [address] [place] [address] JASON ANDERSON 13980 Assigned Surgical Provider 05/31/20 06/22/20 Jan Mahmood MD 516 [facility] 2A [place] [address] Gastroenterology 11/05/20 Brandt Quintana MD [facility]4 [place] [address] Resident 11/05/20 Jan Mahmood MD 516 [facility] PWB 2A [place] [address] Assigned Gastroenterology Provider 12/01/20 Rio Jaquez MD 909 [facility] SE FL 4 [place], [place] 493255 Assigned PCP 11/17/20 09/30/24 Dom Eason MD 717 [facility] 353 [place], [place] [phone] Internal Medicine 12/02/20 Jayla Plaza, RN Specialty Reverse Engineer Hepatology 01/09/21 02/13/24 Jayla Plaza, RN Specialty Reverse Engineer Hepatology 01/10/21 01/10/21 Sydnee Saleem MD 6550 [place] [address] Assigned Heart and Vascular Provider 02/02/21 07/24/22 Phan Coello MD Assigned Neuroscience Provider 02/21/21 11/22/21 Cristian Barragan MD [facility]5 [place] [address] Assigned Infectious Disease Provider 02/21/21 03/06/22 Dom Eason MD 717 [facility] 353 [place] [address] Assigned Nephrology Provider 04/20/21 01/02/22 Jaimie Vernon, TANIA Specialty Reverse Engineer Cardiology 10/28/21 Ruth Riddle DPM, Podiatry/Foot and Ankle Surgery [address] [address] Assigned Musculoskeletal Provider 11/30/21 09/30/23 Luis Arrington MD [address] [place] [address] Assigned Neuroscience Provider 11/23/21 01/02/22 Jason Alvares MD [address] [place] [address] [phone] Assigned Neuroscience Provider 01/03/22 05/15/22 Marquise Hanley MD [address] [place] [address] Endocrinology, Diabetes, and Metabolism 03/05/22 Vlad Ramey MD [address] [place] [address] 9[address]94 Cardiovascular Disease 05/07/22 Joesph Crowe MD [address] [place] [address] 74857 Surgery 05/07/22 Luis Arrington MD [address] [place] [address]104 Assigned Neuroscience Provider 05/16/22 05/14/23 Michelle Padilla, TANIA Specialty Reverse Engineer Cardiology 07/03/22 Vlad Ramey MD [address] [place] [address]47 Assigned Heart and Vascular Provider 07/25/22 05/28/23 Marquise Hanley MD [address] [place] [address] 23179 Assigned Endocrinology Provider 08/15/22 Dom Eason MD 7 [facility] MICHAEL [address] [place] [address] Assigned Nephrology Provider 11/28/22 02/19/23 Wagner Oliver MD [address] [place] [address] Critical Care 12/15/22 Laura Epperson NP [address] [place] [address] 1932 [place] [address] Assigned Nephrology Provider 02/20/23 08/30/24 Thom Taveras MD [address] [place] [address], [address] [address] Assigned Cancer Care Provider 02/06/23 08/20/23 Joesph Crowe MD [address] [place] [address] 07402 Surgery 03/17/23 Joesph Crowe MD [address] [place] [address] 64248 Assigned Surgical Provider 04/03/23 09/30/24 Adonay Haq MD [address] [place] [address] Internal Medicine 06/14/23OctoberDenilson MD [address] [place] [address] JASON HUNTER [address] Assigned Heart and Vascular Provider 05/29/23 11/28/24 Jason Alvares MD [address] [place] [address] 9[address] Assigned Neuroscience Provider 05/15/23 11/28/24 Ruth iRddle DPM, Podiatry/Foot and Ankle Surgery [address] [place] [address] Assigned Musculoskeletal Provider 10/22/23 Jignesh Mathias MD [address] [place] [address] Gastroenterology 09/25/24 Adonay Haq MD [address] [place] [address] Assigned PCP 10/01/24 12/28/24 Omar Carmona MD [address] [place] [address] Assigned PCP 12/29/24 Jason Alvares MD [address] [place] [address] Assigned Neuroscience Provider 12/29/24 Jignesh Mathias MD [address] [place] [address]37 Assigned Surgical Provider 12/29/24 Ayad Lopez, PhD LP [address] [place] [address] Assigned Behavioral Health Provider 02/28/25 Gavi Nieto PA-C [address] [place] [address] Physician Tankman Dermatology 03/19/25 documented as of this encounter
--- OUTSIDE RECORDS SUMMARY | 2025-06-08 22:46 | XMS_ITS | Encounter Summary ---
Author Organization [facility] Address [address] [place] [address]28 Care Team Providers Care Varnishing Machine Operator Name Role Phone Rio Jaquez MD Primary Care Provider + [phone] Barry Kilpatrick MD Unavailable Michelle Henderson RN Unavailable [phone] Rio Jaquez MD Unavailable +[phone] Jemima Jaramillo MD Unavailable Unavai Kelley Bautista RN Unavailable +[phone] Sydnee Saleem MD Unavailable +[phone] Karlene Moya MD Unavailable +[phone] Wilbert Quintero OD Unavailable +[phone] Rod GauthierM Unavailable +[phone] Nallely Hogue RN Unavailable Unavailable Larisa Vargas RN Unavailable Unavailable Rio Jaquez MD Unavailable +[phone] Ruth Yarbrough MD Unavailable +[phone] Francisco Lott MD Unavailable +[phone] Frida Grace MD Unavailable +[phone] [...] Unavailable +[phone] Thom Taveras MD Unavailable +[phone] Joesph Crowe MD Unavailable +[phone] Joesph Crowe MD Unavailable +[phone] Adonay Haq MD Unavailable +[phone] [facility] +[phone] Jason Alvares MD Unavailable Ruth Riddle DPM, Podiatry /Foot and Ankle Surgery Unavailable Omar Carmona MD Primary Care Provider [phone] Jignesh Mathias MD Unavailable Adonay Haq MD Unavailable +[phone] Omar Carmona MD Unavailable +[phone] Jason Alvares MD Unavailable Jignesh Mathias MD Unavailable Ayad Lopez PhD LP Unavailable +[phone] Gavi Nieto-C Unavailable +[phone] Encounter Details Date Type Department Care Team (Late st Contact Info) Description 11/28/2019 [facility] [address] [place] [phone] Rio Jaquez MD [address] [place] [address] Tinea corporis (Primary Dx) Social History Tobacco Use Types Packs/Day Years Used Date Smoking Tobacco: Every Day Cigarettes 1 42.8 Started: 08/09/1982 Smokeless Tobacco: Never Alcohol Use Standard Drinks/Week Comments Yes 0 (1 standard drink = 0.6 oz pur e alcohol) occ Comments No Sex and Gender Information Value Date Recorded Sex Assigned at Female 09/12/2020 12:05 PM INTERNAL SECURITY MANAGER Legal Sex Female 3:26 AM INTERNAL SECURITY MANAGER Gender Identity Female 09/12/2020 12:05 PM INTERNAL SECURITY MANAGER Sexual Orientation Straight 12/19/2021 10 :44 [...] st Contact Info) Description 06/13/2025 6:00 PM INTERNAL SECURITY MANAGER Ancillary Procedure [facility] Imaging Center CT Clinic [address] [phone] Omar Carmona MD [address] [place] [address] 453785 06/14/2025 4:00 PM INTERNAL SECURITY MANAGER Office Visit [facility] [address] [phone] Omar Carmona MD [address] [place] [address] 587215 06/15/2025 12:45 PM INTERNAL SECURITY MANAGER Therapy Visit [facility] Rehabilitation Services [address] [phone] Jason Alvares MD [address] [place] [place] [address] 137075 Chaya Castillo OTR [address] [address] 06/19/2025 10:30 AM INTERNAL SECURITY MANAGER Virtual Visit [facility] Primary Care [address] [phone] Omar Carmona MD [address] [place] [address] 825075 Gerson Santos, [facility] 06/26/2025 11:00 AM INTERNAL SECURITY MANAGER Therapy Visit [address] [phone] Jason Alvares MD [address] [place] [address] Chaya Castillo OTR [address] [address] 07/09/2025 12:45 PM INTERNAL SECURITY MANAGER Therapy Visit [address] [phone] Jason Alvares MD [address] [place] [place] [address] 802445 Chaya Castillo OTR [address] [address] 07/18/2025 3:00 PM INTERNAL SECURITY MANAGER Office Visit [facility] Heart Clinic [address] [phone] Adonay Chapman APRN [address] [address] 11/05/2025 12:30 PM CDT Lab [facility] Lab [address] [phone] 11/05/2025 1:45 PM CDT Office Visit [facility] Dermatology Clinic [address]rd [place] [phone] Gavi Nieto PA-C Dermatology [address] [place] [address] 11/20/2025 10:30 AM CDT Virtual Visit [address] [phone] Marquise Hanley MD 909 [place] [address] documented as of this encounter Goals Goal [...] Depression Total Score: 10 019 7:06 AM INTERNAL SECURITY MANAGER documented as of this encounter Care Teams Varnishing Machine Operator Relationship Specialty Start Date End Date Rio Jaquez MD [address] [place] [address] [address] [place] [address] PCP - General Family Practice 12/02/10 07/13/24 Omar Carmona MD [address] [place] [address] PCP - General Family Medicine 07/14/24 Barry Kilpatrick MD [address] [place] [address] [id number] [place] [address] Neurology 07/19/14 Michelle Henderson I, RN Nurse Coordinator Neurology 07/19/14 Rio Jaquez MD [address] [place] [address] 745825 Family Practice 10/15/14 Jemima Jaramillo MD cheese production supervisor 11/20/14 Kelley Chin, TANIA [address] 654905 Nurse Coordinator Cardiology 11/04/15 Sydnee Saleem MD [address] [place], [place] [address] [place], [place] 1914[address] Cardiology 11/04/15 Karlene Moya MD [address] [place] [address] 863655 Ophthalmology 06/24/17 Wilbert Quintero, OD [address] [place] [address] 090285 Optometry 06/24/17 Rod Gauthier DPM [address] [place] [address] 828615 Dental Associate Primary Podiatric Medicine 06/21/18 Nallely Hogue, RN Registered Nurse 02/20/19 11/23/22 Larisa Vargas, TANIA Specialty Transportation Clerk Cardiology 04/18/19 03/06/22 Rio Jaquez MD [address] [place] [address] 685885 Assigned PCP 12/28/19 11/16/20 Ruth Yarbrough MD 420 [facility] 101 [place] [address] Assigned Endocrinology Provider 05/31/20 09/28/20 Francisco Lott MD [address] 332825 Assigned Rheumatology Provider 05/31/20 12/13/21 Frida Grace MD [address] [place] [address] JASON ANDERSON [address] Assigned Pediatric Specialist Provider 05/31/20 09/08/20 Sydnee Saleem MD [address] [place] [address] 28[address] Assigned Heart and Vascular Provider 05/31/20 10/22/20 Greg Ortega MD [address] [place] [address]107 Assigned Surgical Provider 06/23/20 12/06/21 Frida Grace MD [address] [place] [address] JASON ANDERSON 22695 Assigned Surgical Provider 05/31/20 06/22/20 Jan Mahmood MD [address] [address] Gastroenterology 11/05/20 Brandt Quintana MD 1414 [place] [address] Resident 11/05/20 Jan Mahmood MD 516 [facility] PWB [address] [place], [place] 867325 Assigned Gastroenterology Provider 12/01/20 Rio Jaquez MD 909 [facility] [address] [place], [place] 658925 Assigned PCP 11/17/20 09/30/24 Dom Eason MD [address] [place] [address] 353 [place] [address] Internal Medicine 12/02/20 Jayla Plaza, RN Specialty Transportation Clerk Hepatology 01/09/21 02/13/24 Jayla Plaza, RN Specialty Transportation Clerk Hepatology 01/10/21 01/10/21 Sydnee Saleem MD [address] [place] [address] [phone] Assigned Heart and Vascular Provider 02/02/21 07/24/22 Phan Coello MD Assigned Neuroscience Provider 02/21/21 11/22/21 Cristian Barragan MD 2945 [place] [address] Assigned Infectious Disease Provider 02/21/21 03/06/22 Dom Eason MD [address] [place] [address] 353 [place], [place] 360924 Assigned Nephrology Provider 04/20/21 01/02/22 Jaimie Vernon, TANIA Specialty Transportation Clerk Cardiology 10/28/21 Ruth Riddle, DPM, Podiatry/Foot and Ankle Surgery [address] RODRIGUEZ [address] [place] [address] Assigned Musculoskeletal Provider 11/30/21 09/30/23 Luis Arrington MD [address] [place] [address] 49791 Assigned Neuroscience Provider 11/23/21 01/02/22 Jsaon Alvares MD [address] [place] [address] Assigned Neuroscience Provider 01/03/22 05/15/22 Marquise Hanley MD [address] [place] [address] 23750 Endocrinology, Diabetes, and Metabolism 03/05/22 Vlad Ramey MD [address] [place] [address] 65393 Cardiovascular Disease 05/07/22 Joesph Crowe MD [address] [place] [address] 05500 Surgery 05/07/22 Luis Arrington MD [address] [place] [address] 67[address] Assigned Neuroscience Provider 05/16/22 05/14/23 Michelle Padilla RN Specialty Transportation Clerk Cardiology 07/03/22 Vlad Ramey MD 909 [place] [address] Assigned Heart and Vascular Provider 07/25/22 05/28/23 Marquise Hanley MD [address] [place] [address] 58776 Assigned Endocrinology Provider 08/15/22 Dom Eason MD 7 [facility] MICHAEL [address] [place] [address] Assigned Nephrology Provider 11/28/22 02/19/23 Wagner Oliver MD [address] [place] [address] Critical Care 12/15/22 Laura Epperson NP [address] [place] [address] [facility] [address] [place] [address] Assigned Nephrology Provider 02/20/23 08/30/24 Thmo Taveras MD [address], [address] [place] [address] Assigned Cancer Care Provider 02/06/23 08/20/23 Joesph Crowe MD [address] [place] [address] 29051 Surgery 03/17/23 Joesph Crowe MD [address] [place] [address] 36524 Assigned Surgical Provider 04/03/23 09/30/24 Adonay Haq MD 9 [place] [address] Internal Medicine 06/14/23OctoberDenilson MD [address] [facility] [address] [place] [address] Assigned Heart and Vascular Provider 05/29/23 11/28/24 Jason Alvares MD 420 [facility] 295 [place], [place] 299985 Assigned Neuroscience Provider 05/15/23 11/28/24 Ruth Riddle DPM, Podiatry/Foot and Ankle Surgery [address] [place], [place] 032407 Assigned Musculoskeletal Provider 10/22/23 Jignesh Mathias MD [address] [place] [address] 640585 Gastroenterology 09/25/24 Adonay Haq MD [address] [place] [address] 11082 Assigned PCP 10/01/24 12/28/24 Omar Carmona MD [address] [place] [address] 14980 Assigned PCP 12/29/24 Jason Alvares MD [address] [address] Assigned Neuroscience Provider 12/29/24 Jignesh Mathias MD 909 [place] [address] Assigned Surgical Provider 12/29/24 Ayad Lopez, PhD LP [address] [place] [address] 58296 Assigned Behavioral Health Provider 02/28/25 Gavi Nieto PA-C [address] [place] [address] 177325 Physician Ultrasound Technol Dermatology 03/19/25 documented as of this encounter
--- OUTSIDE RECORDS SUMMARY | 2025-06-08 22:46 | XMS_ITS | Encounter Summary ---
Author Organization [facility] Address [address] [place] [address] 9[address] Care Team Providers Care Armhole Baster Jumpbasting Name Role Phone Rio Jaquez MD Primary Care Provider + [phone] Barry Kilpatrick MD Unavailable Michelle Henderson RN Unavailable [phone] Rio Jaquez MD Unavailable +[phone] Jemima Jaramillo MD Unavailable Unavai Kelley Bautista RN Unavailable +[phone] Sydnee Saleem MD Unavailable +[phone] Karlene Moya MD Unavailable +[phone] Wilbert Quintero OD Unavailable +[phone] Rod GauthierM Unavailable +[phone] Nallely Hogue RN Unavailable Unavailable Larisa Vargas RN Unavailable Unavailable Rio Jaquez MD Unavailable +[phone] Ruth Yarbrough MD Unavailable +[phone] Francisco Lott MD Unavailable +[phone] Frida Grace MD Unavailable +[phone] Sydnee Saleem MD Unavailable +[phone] Greg Ortega MD Unavailable +[phone] Frida Grace MD Unavailable +[phone] Jan [...] Unavailable +[phone] Thom Taveras MD Unavailable +[phone] Joesph Crowe MD Unavailable +[phone] Joesph Crowe MD Unavailable +[phone] Adonay Haq MD Unavailable +[phone] [facility] Unavailable +[phone] Jason Alvares MD Unavailable Rtuh Riddle DPM, Podiatry /Foot and Ankle Surgery Unavailable Omar Carmona MD Primary Care Provider +[phone] Jignesh Mathias MD Unavailable Adonay Haq MD Unavailable +[phone] Omar Carmona MD Unavailable +[phone] Jason Alvares MD Unavailable Jignesh Mathias MD Unavailable Ayad Lopez PhD LP Unavailable +[phone] Gavi Nieto-Keisha Unavailable +[phone] Encounter Details Date Type Department Care Team (Late st Contact Info) Description 11/06/2019 [facility] [address] [place] [phone] Rio Jaquez MD [address] [place] [address] Social History Tobacco Use Types Packs/Day Years Used Date Smoking Tobacco: Every Day Cigarettes 1 42.8 Started: 08/09/1982 Smokeless Tobacco: Never Alcohol Use Standard Drinks/Week Comments Yes 0 (1 standard drink = 0.6 oz pur e alcohol) occ Comments No Sex and Gender Information Value Date Recorded Sex Assigned at Female 09/12/2020 12:05 PM INDUSTRIAL MILLWRIGHT Legal Sex Female 3:26 AM INDUSTRIAL MILLWRIGHT Gender Identity Female 09/12/2020 12:05 PM INDUSTRIAL MILLWRIGHT Sexual Orientation Straight 12/19/2021 10 :44 AM CDT Occupation Industry Job Start Date Job End Date on disability for FMS Not on file Not on file Not on file documented as of this encounter Plan of Treatment Upcoming Encounters Date Type Department Care Team (Late st Contact Info) Description 06/13/2025 6:00 PM INDUSTRIAL MILLWRIGHT Ancillary Procedure [facility] Clinic [address] [phone] Omar Carmona MD [address] [place] [address] [phone] 06/14/2025 4:00 PM INDUSTRIAL MILLWRIGHT Office Visit [facility] [address] [address] Omar Carmona MD [address] [place] [address] [phone] 06/15/2025 12:45 PM INDUSTRIAL MILLWRIGHT Therapy Visit [facility] [address] [phone] Jason Alvares MD 420 [facility] 295 [place], [place] 178265 Chaya Castillo OTR [facility] 150 [place] [address] 06/19/2025 10:30 AM INDUSTRIAL MILLWRIGHT Virtual Visit [facility] [address] [phone] Omar Carmona MD [address] [place] [address] 309755 Gerson Santos, MORENO 06/26/2025 11:00 AM INDUSTRIAL MILLWRIGHT Therapy Visit [address] [phone] Jason Alvares MD [address] [place] [address] Chaya Castillo, OTR [address] [address] 07/09/2025 12:45 PM INDUSTRIAL MILLWRIGHT Therapy Visit [address] [phone] Jason Alvares MD [address] [place] [address] Chaya Castillo, OTR [address] [address] 07/18/2025 3:00 PM INDUSTRIAL MILLWRIGHT Office Visit [facility] [address] [phone] Adonay Chapman APRN [facility] 500 [place], [place] 603675 11/05/2025 12:30 PM CDT Lab [facility] [address] [phone] 11/05/2025 1:45 PM CDT Office Visit [facility] [address]rd [place] [phone] Gavi Nieto PA-C Dermatology [address] [place] [address] 11/20/2025 10:30 AM CDT Virtual Visit [address] [address] Marquise Hanley MD [address] [place] [address] documented as of this encounter Goals Goal [...] Depression Total Score: 10 019 7:06 AM INDUSTRIAL MILLWRIGHT documented as of this encounter Care Teams Armhole Baster Jumpbasting Relationship Specialty Start Date End Date Rio Jaquez MD [address] [place] [address] 08363 PCP - General Family Practice 12/02/10 07/13/24 Omar Carmona MD [address] [place] [address] 94617 PCP - General Family Medicine 07/14/24 Barry Kilpatrick MD [address] [place] [address] [address]29SW [place] [address] Neurology 07/19/14 Michelle Henderson I, RN Nurse Coordinator Neurology 07/19/14 Rio Jaquez MD [address] [place] [address] 489065 Family Practice 10/15/14 Jemima Jaramillo MD maintenance man 11/20/14 Kelley Chin, TANIA [facility] 909 [place], [place] 127915 Nurse Coordinator Cardiology 11/04/15 Sydnee Saleem MD 420 [facility] 508 [place], [place] 255965 Cardiology 11/04/15 Karlene Moya MD [address] [place] [address] 190735 Ophthalmology 06/24/17 Wilbert Quintero, PETEY [address] [place] [address] 174095 Optometry 06/24/17 Rod Gauthier DPM [address] [place] [address] [phone] Jewelry Sales Representative Primary Podiatric Medicine 06/21/18 Nallely Hogue, RN Registered Nurse 02/20/19 11/23/22 Larisa Vargas, TANIA Specialty Director Of Intelligence Cardiology 04/18/19 03/06/22 Rio Jaquez MD [address] [place] [address] [phone] Assigned PCP 12/28/19 11/16/20 Ruth Yarbrough MD 420 [facility] 101 [place], [place] 595645 Assigned Endocrinology Provider 05/31/20 09/28/20 Francisco Lott MD [address] [place] [address] 82063 Assigned Rheumatology Provider 05/31/20 12/13/21 Frida Grace MD 3305 [facility] JASON ANDERSON [address] Assigned Pediatric Specialist Provider 05/31/20 09/08/20 Sydnee Saleem MD [address] [place] [address] 83143 Assigned Heart and Vascular Provider 05/31/20 10/22/20 Greg Ortega MD [address] [place] [address] 31758 Assigned Surgical Provider 06/23/20 12/06/21 [place] [address] [place] [address] JASON ANDERSON 84355 Assigned Surgical Provider 05/31/20 06/22/20 Jan Mahmood MD [address] [place] [address] 13957 Gastroenterology 11/05/20 Brandt Quintana MD [address] [place] [address] 78599 Resident 11/05/20 Jan Mahmood MD [address] [place] [address] 70742 Assigned Gastroenterology Provider 12/01/20 Rio Jaquez MD 909 [facility] 4 [place], [place] 805935 Assigned PCP 11/17/20 09/30/24 Dom Eason MD [address] [place] [address] 353 [place] [address] Internal Medicine 12/02/20 Jayla Plaza, RN Specialty Director Of Intelligence Hepatology 01/09/21 02/13/24 Jayla Plaza, RN Specialty Director Of Intelligence Hepatology 01/10/21 01/10/21 Sydnee Saleem MD [address] [place] [address] Assigned Heart and Vascular Provider 02/02/21 07/24/22 Phan Coello MD Assigned Neuroscience Provider 02/21/21 11/22/21 Cristian Barragan MD 2945 [place] [address] Assigned Infectious Disease Provider 02/21/21 03/06/22 Dom Eason MD [address] [place] [address] 353 [place] [address] Assigned Nephrology Provider 04/20/21 01/02/22 Jaimie Vernon, TANIA Specialty Director Of Intelligence Cardiology 10/28/21 Ruth Riddle DPM, Podiatry/Foot and Ankle Surgery [address] [place] [address] 19681 Assigned Musculoskeletal Provider 11/30/21 09/30/23 Luis Arrington MD [address] [place] [address] 78548 Assigned Neuroscience Provider 11/23/21 01/02/22 Jason Alvares MD [address] [place] [address] 23485 Assigned Neuroscience Provider 01/03/22 05/15/22 Marquise Hanley MD [address] [place] [address] 03885 Endocrinology, Diabetes, and Metabolism 03/05/22 Vlad Ramey MD [address] [place] [address] 78357 Cardiovascular Disease 05/07/22 Joesph Crowe MD [address] [place] [address] 17451 Surgery 05/07/22 Luis Arrington MD [address] [place] [address] 04383 Assigned Neuroscience Provider 05/16/22 05/14/23 Michelle Padilla, TANIA Specialty Director Of Intelligence Cardiology 07/03/22 Vlad Ramey MD [address] [place] [address] 66697 Assigned Heart and Vascular Provider 07/25/22 05/28/23 Marquise Hanley MD [address] [place] [address] 56856 Assigned Endocrinology Provider 08/15/22 Dom Eason MD 717 [facility] [address] [place] [address] Assigned Nephrology Provider 11/28/22 02/19/23 Wagner Oliver MD [address] [place] [address] Critical Care 12/15/22 Laura Epperson NP 7 [facility] [address] [place] [address] Assigned Nephrology Provider 02/20/23 08/30/24 Thom Taveras MD [address] [place] [address] Assigned Cancer Care Provider 02/06/23 08/20/23 Joesph Crowe MD [address] [place] [address] 43259 Surgery 03/17/23 Joesph Crowe MD [address] [place] [address] 61308 Assigned Surgical Provider 04/03/23 09/30/24 Adonay Haq MD [address] [place] [address] 29139 Internal Medicine 06/14/23OctoberDenilson MD [address] [place] [id number] Assigned Heart and Vascular Provider 05/29/23 11/28/24 Jason Alvares MD 420 [facility] 295 [place] [address] Assigned Neuroscience Provider 05/15/23 11/28/24 Ruth Riddle, DPM, Podiatry/Foot and Ankle Surgery [address] [place], [place] 788617 Assigned Musculoskeletal Provider 10/22/23 Jignesh Mathias MD [address] [place] [address] 829875 Gastroenterology 09/25/24 Adonay Haq MD [address] [place] [address] 233325 Assigned PCP 10/01/24 12/28/24 Omar Carmona MD [address] [place] [address] 068385 Assigned PCP 12/29/24 Jason Alvares MD [address] [address] Assigned Neuroscience Provider 12/29/24 Jignesh Mathias MD [address] [place] [address] 77950 Assigned Surgical Provider 12/29/24 Ayad Lopez, PhD LP [address] [place] [address] 75041 Assigned Behavioral Health Provider 02/28/25 Gavi Neito PA-C 500 [place] [address] Physician Diesel Locomotive Engineer Dermatology 03/19/25 documented as of this encounter
--- OUTSIDE RECORDS SUMMARY | 2025-06-08 22:46 | XMS_ITS | Encounter Summary ---
Author Organization [facility] Address [address] [place] [address] 7[address] Care Team Providers Care Production Welding Supervisor Name Role Phone Rio Jaquez MD Primary Care Provider + [phone] Barry Kilpatrick MD Unavailable Michelle Henderson RN Unavailable [phone] Rio Jaquez MD Unavailable +[phone] Jemima Jaramillo MD Unavailable Unavai Kelley Bautista RN Unavailable +[phone] Sydnee Saleem MD Unavailable +[phone] Karlene Moya MD Unavailable +[phone] Wilbert Quintero OD Unavailable +[phone] Rod GauthierM Unavailable +[phone] Nallely Hogue RN Unavailable Unavailable Larisa Vargas RN Unavailable Unavailable Rio Jaquez MD Unavailable +[phone] Ruth Yarbrough MD Unavailable +[phone] Francisco Lott MD Unavailable +[phone] Frida Grace MD Unavailable [phone] [...] Unavailable +[phone] Thom Taveras MD Unavailable +[phone] Joesph Crowe MD Unavailable +[phone] Joesph Crowe MD Unavailable +[phone] Adonay Haq MD Unavailable [phone] Denilson Srinivasan MD Unavailable +[phone] Jason Alvares MD Unavailable Ruth Riddle DPM, Podiatry /Foot and Ankle Surgery Unavailable Omar Carmona MD Primary Care Provider [phone] Jignesh Mathias MD Unavailable Adonay Haq MD Unavailable +[phone] Omar Carmona MD Unavailable +[phone] Jason Alvares MD Unavailable Jignesh Mathias MD Unavailable Ayad Lopez PhD LP Unavailable +[phone] Gavi Nieto-Keisha Unavailable +[phone] Encounter Details Date Type Department Care Team (Late st Contact Info) Description 12/05/2019 [facility] [facility] Dermatology [address] [place] [phone] [facility] [place] Social History Tobacco Use Types Packs/Day Years Used Date Smoking Tobacco: Every Day Cigarettes 1 42.8 Started: 08/09/1982 Smokeless Tobacco: Never Alcohol Use Standard Drinks/Week Comments Yes 0 (1 standard drink = 0.6 oz pur e alcohol) occ Comments No Sex and Gender Information Value Date Recorded Sex Assigned at Female 09/12/2020 12:05 PM LEGISLATIVE AIDE Legal Sex Female 3:26 AM LEGISLATIVE AIDE Gender Identity Female 09/12/2020 12:05 PM LEGISLATIVE AIDE Sexual Orientation Straight 12/19/2021 10 :44 [...] st Contact Info) Description 06/13/2025 6:00 PM LEGISLATIVE AIDE Ancillary Procedure [facility] CT Clinic [address] [phone] Omar Carmona MD [address] [place] [address] 778215 06/14/2025 4:00 PM LEGISLATIVE AIDE Office Visit [facility] Primary Care Clinic [address] [address] Omar Carmona MD [address] [place] [address] 768435 06/15/2025 12:45 PM LEGISLATIVE AIDE Therapy Visit [facility] Rehabilitation Services [address] [phone] Jason Alvares MD [address] [place] [address] 295 [place], [place] 047765 Chaya Castillo, WESR [facility] 150 [place] [address] 06/19/2025 10:30 AM LEGISLATIVE AIDE Virtual Visit [facility] Primary Care [address] [phone] Omar Carmona MD [address] [place] [address] 467015 Gerson Santos, MORENO 06/26/2025 11:00 AM LEGISLATIVE AIDE Therapy Visit [address] [phone] Jason Alvares MD [address] [place] [address] 740085 Chaya Castillo, OTR [address] [address] 07/09/2025 12:45 PM LEGISLATIVE AIDE Therapy Visit [address] [phone] Jason Alvares MD [address] [place] [address] 902955 Chaya Castillo, OTR [address] [address] 07/18/2025 3:00 PM LEGISLATIVE AIDE Office Visit [facility] Heart [address] [phone] Adonay Chapman APRN [facility] 500 [place], [place] 9678[address] 11/05/2025 12:30 PM CDT Lab [facility] Lab [address]st [place] [phone] 11/05/2025 1:45 PM CDT Office Visit [facility] Dermatology Clinic [address]rd [place] [phone] Gavi iNeto PA-C Dermatology [address] [place] [address] 11/20/2025 10:30 AM CDT Virtual Visit [address] [address] Marquise Hanley MD [address] [place] [address] 19312 documented as of this encounter Goals Goal [...] Depression Total Score: 10 019 7:06 AM LEGISLATIVE AIDE documented as of this encounter Care Teams Production Welding Supervisor Relationship Specialty Start Date End Date Rio Jaquez MD [address] [place] [address] 4 [place] [address] PCP - General Family Practice 12/02/10 07/13/24 Omar Carmona MD [address] [place] [address] 46050 PCP - General Family Medicine 07/14/24 Barry Kilpatrick MD [address] [place] [address] [id number] [place] [address] Neurology 07/19/14 Michelle Henderson I, RN Nurse Coordinator Neurology 07/19/14 Rio Jaquez MD [address] [place] [address] 4 [place] [address] Family Practice 10/15/14 Jemima Jaramillo MD vice president of marketing 11/20/14 Kelley Chin, TANIA [facility] [address] [place] [address] 953625 Nurse Coordinator Cardiology 11/04/15 Sydnee Saleem MD 420 [facility] 508 [place], [place] 645035 Cardiology 11/04/15 Karlene Moya MD [address] [place] [address] 529245 Ophthalmology 06/24/17 Wilbert Quintero, PETEY [address] [place] [address] 864515 Optometry 06/24/17 Rod Gauthier DPM [address] [place] [address] 501705 Torch Solderer Primary Podiatric Medicine 06/21/18 Nallely Hogue, RN Registered Nurse 02/20/19 11/23/22 Larisa Vargas, TANIA Specialty Web Assistant Cardiology 04/18/19 03/06/22 Rio Jaquez MD [address] [place] [address] 830325 Assigned PCP 12/28/19 11/16/20 Ruth Yarbrough MD 420 [facility] 101 [place], [place] 844395 Assigned Endocrinology Provider 05/31/20 09/28/20 Francisco Lott MD [address] [place] [address] 67630 Assigned Rheumatology Provider 05/31/20 12/13/21 Frida Grace MD [address] [place] [address] JASON ANDERSON [address]146 Assigned Pediatric Specialist Provider 05/31/20 09/08/20 Sydnee Saleem MD [address] [place] [address] 77030 Assigned Heart and Vascular Provider 05/31/20 10/22/20 Greg Ortega MD [address] [place] [address] 18501 Assigned Surgical Provider 06/23/20 12/06/21 Frida Grace MD [address] [place] [address] JASON ANDERSON 29068 Assigned Surgical Provider 05/31/20 06/22/20 Jan Mahmood MD [address] [place] [address] 97684 Gastroenterology 11/05/20 Brandt Quintana MD [address] [place] [address] 39565 Resident 11/05/20 Jan Mahmood MD [address] [place] [address] 10942 Assigned Gastroenterology Provider 12/01/20 Rio Jaquez MD 909 [facility] 4 [place], [place] 992525 Assigned PCP 11/17/20 09/30/24 Dom Eason MD [address] [place] [address] 353 [place], [place] 416494 Internal Medicine 12/02/20 Jayla Plaza, RN Specialty Web Assistant Hepatology 01/09/21 02/13/24 Jayla Plaza, RN Specialty Web Assistant Hepatology 01/10/21 01/10/21 Sydnee Saleem MD [address] [place] [address] Assigned Heart and Vascular Provider 02/02/21 07/24/22 Phan Coello MD Assigned Neuroscience Provider 02/21/21 11/22/21 Cristian Barragan MD [address]45 [place] [address] Assigned Infectious Disease Provider 02/21/21 03/06/22 Dom Eason MD [address] [place] [address] 83914 Assigned Nephrology Provider 04/20/21 01/02/22 Jaimie Vernon, TANIA Specialty Web Assistant Cardiology 10/28/21 Ruth Riddle DPM, Podiatry/Foot and Ankle Surgery [address] [address] Assigned Musculoskeletal Provider 11/30/21 09/30/23 Luis Arrington MD [address] [place] [address] 85476 Assigned Neuroscience Provider 11/23/21 01/02/22 Jason Alvares MD [address] [place] [address]239 Assigned Neuroscience Provider 01/03/22 05/15/22 Marquise Hanley MD [address] [place] [address] 17338 Endocrinology, Diabetes, and Metabolism 03/05/22 Vlad Ramey MD [address] [place] [address] 97971 Cardiovascular Disease 05/07/22 Joesph Crowe MD [address] [place] [address] 67622 Surgery 05/07/22 Luis Arrington MD [address] [place] [address] 31198 Assigned Neuroscience Provider 05/16/22 05/14/23 Michelle Padilla, TANIA Specialty Web Assistant Cardiology 07/03/22 Vlad Ramey MD [address] [place] [address] 00304 Assigned Heart and Vascular Provider 07/25/22 05/28/23 Marquise Hanley MD 909 [place] [address] Assigned Endocrinology Provider 08/15/22 Dom Eason MD 717 [facility] [address] [place] [address] Assigned Nephrology Provider 11/28/22 02/19/23 Wagner Oliver MD [address] [place] [address] Critical Care 12/15/22 Laura Epperson, LULU 717 [facility] [address] [place] [address] Assigned Nephrology Provider 02/20/23 08/30/24 Thom Taveras MD [address] [place] [address] Assigned Cancer Care Provider 02/06/23 08/20/23 Joesph Crowe MD [address] [place] [address] 78067 Surgery 03/17/23 Joesph Crowe MD [address] [place] [address] 71378 Assigned Surgical Provider 04/03/23 09/30/24 Adonay Haq MD [address] [place] [address] 26824 Internal Medicine 06/14/23OctoberDenilson MD [address] [place] [address] Assigned Heart and Vascular Provider 05/29/23 11/28/24 Jason Alvares MD 420 [facility] 295 [place], [place] 204375 Assigned Neuroscience Provider 05/15/23 11/28/24 Ruth Riddle DPM, Podiatry/Foot and Ankle Surgery [address] [place] [address] Assigned Musculoskeletal Provider 10/22/23 Jignesh Mathias MD [address] [place] [address] 315135 Gastroenterology 09/25/24 Adonay Haq MD [address] [place] [address] [phone] Assigned PCP 10/01/24 12/28/24 Omar Carmona MD [address] [place] [address] 037725 Assigned PCP 12/29/24 Jason Alvares MD 420 [facility] 295 [place] [address] Assigned Neuroscience Provider 12/29/24 Jignesh Mathias MD [address] [place] [address] 02151 Assigned Surgical Provider 12/29/24 Ayad Lopez, PhD LP [address] [place] [address] Assigned Behavioral Health Provider 02/28/25 Gavi Nieto PA-C [address] [place] [address] Physician User Experience Researcher Dermatology 03/19/25 documented as of this encounter
--- OUTSIDE RECORDS SUMMARY | 2025-06-08 22:46 | XMS_ITS | Encounter Summary ---
Author Organization [place] Address [address] [place] [address] Care Team Providers Care Nurses' Aide Name Role Phone Barry Kilpatrick MD Unavailable Michelle Henderson RN Unavailable [phone] Rio Jaquez MD Unavailable +[phone] Jemima Jaramillo MD Unavailable Unavai Kelley Bautista RN Unavailable +[phone] Sydnee Saleem MD Unavailable +[phone] Karlene Moya MD Unavailable +[phone] Wilbert Quintero OD Unavailable +[phone] Rod Gauthier DPM Unavailable [phone] Jan Mahmood MD Unavailable +[phone] Brandt Quintana MD Unavailable Jan Mahmood MD Unavailable +[phone] Dom Eason MD Unavailable +[phone] Jaimie Vernon RN Unavailable Unavailable Marquise Hanley MD Unavailable +[phone] Vlad Ramey MD Unavailable +[phone] Joesph Crowe MD Unavailable Michelle Padilla RN Unavailable Unavaila ble Marquise Hanley MD Unavailable +[phone] Wagner Oliver MD Unavailable [phone] Joesph Crowe MD Unavailable Adonay Haq MD Unavailable [phone] Ruth Riddle DPM, Podiatry /Foot and Ankle Surgery Unavailable Omar Carmona MD Primary Care Provider [phone] Jignesh Mathias MD Unavailable Omar Carmona MD Unavailable +[phone] Jason Alvares MD Unavailable Jignesh Mathias MD Unavailable Ayad Lopez PhD LP Unavailable [phone] Gavi Nieto PA-C Unavailable [phone] Encounter Details Date Type Department Care Team (Late st Contact Info) Description 01/03/2025 [facility] Primary Care Clinic [address] [address] Omar Carmona MD [address] [place] [address] Hypokalemia (Primary Dx); CKD (chronic kidney [...] Answer Date Recorded PHQ-2 Score 3 12/04/2024 [facility]ational [facility] Questionnaire Answer Date [...] Sex Assigned at Female 09/12/2020 12:05 PM GRAPE PRUNER Legal Sex Female 3:26 AM GRAPE PRUNER Gender Identity Female 09/12/2020 12:05 PM GRAPE PRUNER Sexual Orientation Straight 12/19/2021 10 :44 AM CDT Occupation Industry Job Start Date Job End Date on disability for FMS Not on file Not on file Not on file disabled Not on file Not on file Not on file documented as of this encounter Miscellaneous Notes * Telephone Encounter - Omar Carmona MD - 01/04/2025 3:18 PM CDT Last week [facility] labs rvwd; nothing on those to explain symptoms unless the potassium is even lower could consider BMP and CBC/diff lab only; if symptoms are ongoing best thing would be see provider perhaps we have open spot in [facility] today/tmrw documented in this encounter Plan of Treatment Upcoming Encounters Date Type Department Care Team (Late st Contact Info) Description 06/13/2025 6:00 PM GRAPE PRUNER Ancillary Procedure [address] 1st [place] [address] Omar Carmona MD [address] [place] [address] 06/14/2025 4:00 PM GRAPE PRUNER Office Visit [facility] Primary Care [address] [phone] Omar Carmona MD [address] [place] [address] 553415 06/15/2025 12:45 PM GRAPE PRUNER Therapy Visit [facility] [address] [place] [phone] Jason Alvares MD [address] [place] [address] 144055 Chaya Castillo OTR [facility] [address] [place], [place] 121407 06/19/2025 10:30 AM GRAPE PRUNER Virtual Visit [facility] Primary Care [address] [phone] Omar Carmona MD [address] [place] [address] Gerson Santos [facility] 06/26/2025 11:00 AM GRAPE PRUNER Therapy [facility] [address] [place] [phone] Jason Alvares MD [address] [place] [address] 654785 Chaya Castillo, OTR [facility] [address] [place], [place] 792677 07/09/2025 12:45 PM GRAPE PRUNER Therapy Visit [facility] [address] [place] [phone] Jason Alvares MD 420 [facility] [address] [place] [address] Chaya Castillo, OTR [facility] [address] [place] [address] 07/18/2025 3:00 PM GRAPE PRUNER Office Visit [facility] Heart [address] [phone] Adonay Chapman APRN [facility] [address] [place], [place] 644235 11/05/2025 12:30 PM CDT Lab [facility] Lab [address] 1st [place] [phone] 11/05/2025 1:45 PM CDT Office Visit [facility] Dermatology Clinic [address] 3rd [place] [phone] Gavi Nieto, PANavinC [facility] [address] [place] [address] 11/20/2025 10:30 AM CDT Virtual Visit [address] [address] Marquise Hanley MD [address] [place] [address] 465635 documented as of this encounter Goals Goal Patient Goal Type Associated Problems Recent Progress Patient-Stated? Author Quit smoking / using tobacco Lifestyle Rio Will MD Note: 06/25/14 planned quit date documented as of this encounter Results * (ABNORMAL) Comprehensive metabolic panel (BMP + [...] Carmona MD LAB - BLOOD ORDERABLES Ashly nicole Result [facility] [address] [place] [address], [place] [address] documented in this encounter Visit Diagnoses Diagnosis Hypokalemia- Primary [...] documented as of this encounter Care Teams Nurses' Aide Relationship Specialty Start Date End Date Omar Carmona MD [address] [place] [address] PCP - General Family Medicine 07/14/24 Barry Kilpatrick MD [address] [place] [address] [id number] [place], [place] 922925 Neurology 07/19/14 Michelle Henderson RN Nurse Coordinator Neurology 07/19/14 Rio Jaquez MD [address] [place] [address] 661035 Family Practice 10/15/14 Jemima Jaramillo MD [address] [place] [address] research specialist 11/20/14 Kelley Chin, TANIA [address] 333335 Nurse Coordinator Cardiology 11/04/15 Sydnee Saleem MD 420 [facility] 508 [place] [address] Cardiology 11/04/15 Karlene Moya MD 516 [place] [address] Ophthalmology 06/24/17 Wilbert Quintero OD [address] [place], [place] 041265 Optometry 06/24/17 Rod Gauthier DPM [address] [place], [place] 171515 Grease Refiner Operator Primary Podiatric Medicine 06/21/18 Jan Mahmood MD [address] [address] MD Gastroenterology 11/05/20 Brandt Quintana MD [address] [place] [address] Resident 11/05/20 Jan Mahmood MD 516 [facility] 2A [place] [address] Assigned Gastroenterology Provider 12/01/20 Dom Eason MD 717 [facility] 353 [place] [address] Internal Medicine 12/02/20 Jaimie Vernon, RN Specialty Network Technician Cardiology 10/28/21 Marquise Hanley MD [address] [place] [address] Endocrinology, Diabetes, and Metabolism 03/05/22 Vlad Ramey MD [address] [place] [address] Cardiovascular Disease 05/07/22 Joesph Crowe MD [address] [place] [address] MD Surgery 05/07/22 Michelle Padilla RN Specialty Network Technician Cardiology 07/03/22 Marquise Hanley MD [address] [place] [address] Assigned Endocrinology Provider 08/15/22 Wagner Oliver MD [address] [place] [address] Critical Care 12/15/22 Joesph Crowe MD [address] [place] [address] Surgery 03/17/23 Adonay Haq MD [address] [place] [address]68 Internal Medicine 06/14/23 Ruth Riddle DPM, Podiatry/Foot and Ankle Surgery [address] [place] [address] Assigned Musculoskeletal Provider 10/22/23 Jignesh Mathias MD [address] [place] [address] 496805 Gastroenterology 09/25/24 Omar Carmona MD [address] [place] [address] 702565 Assigned PCP 12/29/24 Jason Alvares MD [address] [place] [address] [id number] Assigned Neuroscience Provider 12/29/24 Jignesh Mathias MD [address] [place] [address] 794525 Assigned Surgical Provider 12/29/24 Ayad Lopez, PhD LP [address] [place] [address] [phone] Assigned Behavioral Health Provider 02/28/25 Gavi Nieto PANavinC [address] [place] [address] 943815 Physician Business Services Sales Representative Dermatology 03/19/25 documented as of this encounter
--- OUTSIDE RECORDS SUMMARY | 2025-06-08 22:46 | XMS_ITS | Encounter Summary ---
Author Organization [place] Address [address] [place] [address] Care Team Providers Care Process Plant Operator Name Role Phone Rio Jaquez MD Primary Care Provider Barry Kilpatrick MD Unavailable Michelle Henderson I RN Unavailable [phone] Rio Jaquez MD Unavailable [phone] Jemima Jaramillo MD Unavailable Unavai Kelley Bautista RN Unavailable [phone] Sydnee Saleem MD Unavailable [phone] Karlene Moya MD Unavailable Wilbert Quintero OD Unavailable +[phone] Rod Gauthier DPM Unavailable Jan Mahmood MD Unavailable [phone] Brandt Quintana MD Unavailable [phone] Jan Mahmood MD Unavailable +[phone] Rio Jaquez MD Unavailable [phone] Dom Eason MD Unavailable Jayla Plaza [...] Unavailable +[phone] Dom Eason MD Unavailable +[phone] Wagner Oliver MD Unavailable [phone] Laura Epperson NP Unavailable +[phone] Thom Taveras MD Unavailable [phone] Joesph Crowe MD Unavailable +[phone] Joesph Crowe MD Unavailable +[phone] Adonay aHq MD Unavailable +[phone] Denilson Srinivasan MD Unavailable + [phone] Jason Alvares MD Unavailable Ruth Riddle DPM, Podiatry /Foot and Ankle Surgery Unavailable Omar Carmona MD Primary Care Provider [phone] Jignesh Mathias MD Unavailable Adonay Haq MD Unavailable +[phone] Omar Carmona MD Unavailable [phone] Jason Alvares MD Unavailable Jignesh Mathias MD Unavailable Ayad Lopez PhD LP Unavailable +[phone] Gavi NietoC Unavailable [phone] Encounter Details Date Type Department Care Team (Late st Contact Info) Description 02/04/2023 [facility] Medical Advice [facility] Nephrology Clinic [address] [address] Pancho Locke Social History Tobacco [...] than three times a week 08/27/2021 Attends [employer] Not on file 08/27 Do you [...] Answer Date Recorded PHQ-2 Score 2 02/01/2023 [facility] - Occupational [...] Sex Assigned at Female 09/12/2020 12:05 PM INSULATION INSPECTOR Legal Sex Female 3:26 AM INSULATION INSPECTOR Gender Identity Female 09/12/2020 12:05 PM INSULATION INSPECTOR Sexual Orientation Straight 12/19/2021 10 :44 [...] st Contact Info) Description 06/13/2025 6:00 PM INSULATION INSPECTOR Ancillary Procedure [facility] Imaging [facility] Clinic [address] [phone] Omar Carmona MD [address] [place] [address] 335415 06/14/2025 4:00 PM INSULATION INSPECTOR Office Visit [address] [phone] Omar Carmona MD [address] [place] [address] 06/15/2025 12:45 PM INSULATION INSPECTOR Therapy Visit [facility] Rehabilitation Services [address] [phone] Jason Alvares MD [address] [place] [address] 295 [place], [place] 583555 Chaya Castillo OTR [facility] 150 [place] [address] 06/19/2025 10:30 AM INSULATION INSPECTOR Virtual Visit [facility] Primary Care [address]th [place] [phone] Omar Carmona MD [address] [place] [address] 206605 Gerson Santos, FARZAD 06/26/2025 11:00 AM INSULATION INSPECTOR Therapy Visit [facility] 150 [place] [phone] Jason Alvares MD [address] [place] [address] 534935 Chaya Castillo, OTR [address] [address] 07/09/2025 12:45 PM INSULATION INSPECTOR Therapy Visit [address] [phone] Jason Alvares MD [address] [place] [address] 824605 Chaya Castillo OTMari [address] [address] 07/18/2025 3:00 PM INSULATION INSPECTOR Office Visit [facility] Heart Clinic [address] [phone] Adonay Chapman APRN [address] 532165 11/05/2025 12:30 PM CDT Lab [facility] Lab [address]st [place] [phone] 11/05/2025 1:45 PM CDT Office Visit [facility] Dermatology Clinic [address] [place] [phone] Gavi Nieto PA-C Dermatology [address] [place] [address] 9[address] 11/20/2025 10:30 AM CDT Virtual Visit [address] [address] Marquise Hanley MD 909 [place] [address] documented as of this encounter Goals Goal [...] as of this encounter Care Teams Process Plant Operator Relationship Specialty Start Date End Date Rio Jaquez MD 9 [facility] 4 [place] [address] PCP - General Family Practice 12/02/10 07/13/24 Omar Carmona MD [address] [place] [address] 32365 PCP - General Family Medicine 07/14/24 Barry Kilpatrick MD [address] [place] [address] [id number] [place] [address] Neurology 07/19/14 Michelle Henderson I, RN Nurse Coordinator Neurology 07/19/14 Rio Jaquez MD [address] [place] [address] 4 [place], [place] 304225 Family Practice 10/15/14 Jemima Jaramillo MD personal care worker 11/20/14 Kelley Chin, TANIA [address] [address] Nurse Coordinator Cardiology 11/04/15 Sydnee Saleem MD [address] [place] [address] 508 [place], [place] 555455 Cardiology 11/04/15 Karlene Moya MD [address] [place] [address] 893915 Ophthalmology 06/24/17 Wilbert Quintero, OD [address] [place] [address] 009155 Optometry 06/24/17 Rod Gauthier DPM [address] [place] [address] 158965 Psychological Tests Sales Agent Primary Podiatric Medicine 06/21/18 Jan Mahmood MD [address] [place] [address] [phone] Gastroenterology 11/05/20 Brandt Quintana MD [address] [place] [address] Resident 11/05/20 Jan Mahmood MD 516 [facility] 2A [place] [address] Assigned Gastroenterology Provider 12/01/20 Rio Jaquez MD [address] [place] [address] 169195 Assigned PCP 11/17/20 09/30/24 Dom Eason MD [address] [place] [address] Internal Medicine 12/02/20 Jayla Plaza, RN Specialty Electrical Project Engineer Hepatology 01/09/21 02/13/24 Jaimie Vernon, RN Specialty Electrical Project Engineer Cardiology 10/28/21 Ruth Riddle DPM, Podiatry/Foot and Ankle Surgery [address] [address] Assigned Musculoskeletal Provider 11/30/21 09/30/23 Marquise Hanley MD [address] [place] [address] Endocrinology, Diabetes, and Metabolism 03/05/22 Vlad Ramey MD [address] [place] [address] 653585 Cardiovascular Disease 05/07/22 Joesph Crowe MD [address] [place] [address] 835605 Surgery 05/07/22 Luis Arrington MD [address] [place] [address] Assigned Neuroscience Provider 05/16/22 05/14/23 Michelle Padilla, RN Specialty Electrical Project Engineer Cardiology 07/03/22 Vlad Ramey MD [address] [place] [address] Assigned Heart and Vascular Provider 07/25/22 05/28/23 Marquise Hanley MD [address] [place] [address] Assigned Endocrinology Provider 08/15/22 Dom Eason MD [address] [place] [address] 353 [place] [address] Assigned Nephrology Provider 11/28/22 02/19/23 Wagner Oliver MD 6401 [place] [address] Critical Care 12/15/22 Laura Epperson NP [address] [place] [address] 1932 [place] [address] Assigned Nephrology Provider 02/20/23 08/30/24 Thom Taveras MD [facility] [address], [address] [place] [address] Assigned Cancer Care Provider 02/06/23 08/20/23 Joesph Crowe MD [address] [place] [address] Surgery 03/17/23 Joesph Crowe MD [address] [place] [address] Assigned Surgical Provider 04/03/23 09/30/24 Adonay Haq MD [address] [place] [address] Internal Medicine 06/14/23OctoberDenilson MD 6405 [facility] [address] [place] [address] Assigned Heart and Vascular Provider 05/29/23 11/28/24 Jason Alvares MD [address] [place] [address] Assigned Neuroscience Provider 05/15/23 11/28/24 Ruth Riddle DPM, Podiatry/Foot and Ankle Surgery [address] [place] [facility] 300 [place], [place] 700517 Assigned Musculoskeletal Provider 10/22/23 Jignesh Mathias MD [address] [place] [address] Gastroenterology 09/25/24 Adonay Haq MD [address] [place] [address] Assigned PCP 10/01/24 12/28/24 Omar Carmona MD [address] [place] [address] 136555 Assigned PCP 12/29/24 Jason Alvares MD [address] [place] [address] 177195 Assigned Neuroscience Provider 12/29/24 Jignesh Mathias MD [address] [place] [address] 109085 Assigned Surgical Provider 12/29/24 Ayad Lopez, PhD LP [address] [place] [address] 430745 Assigned Behavioral Health Provider 02/28/25 Gavi Nieto PANavinC [address] [place] [address] 768315 Physician Pesticide Applicator Dermatology 03/19/25 documented as of this encounter
--- OUTSIDE RECORDS SUMMARY | 2025-06-08 22:46 | XMS_ITS | Encounter Summary ---
Author Organization [place] Address [address] [place] [address] Care Team Providers Care Raker Buffing Wheel Name Role Phone Rio Jaquez MD Primary Care Provider + [phone] Barry Kilpatrick MD Unavailable Michelle Henderson RN Unavailable [phone] Rio Jaquez MD Unavailable +[phone] Jemima Jaramillo MD Unavailable Unavai Kelley Bautista RN Unavailable +[phone] Sydnee Saleem MD Unavailable +[phone] Karlene Moya MD Unavailable +[phone] Wilbert Quintero OD Unavailable +[phone] Rod GauthierM Unavailable +[phone] Nallely Hogue RN Unavailable Unavailable Larisa Vargas RN Unavailable Unavailable Rio Jaquez MD Unavailable +[phone] Ruth Yarbrough MD Unavailable +[phone] Francisco Lott MD Unavailable +[phone] Frida Grace MD Unavailable +[phone] [...] Unavailable [phone] Thom Taveras MD Unavailable +[phone] Joesph Crowe MD Unavailable +[phone] Joesph Crowe MD Unavailable +[phone] Adonay Haq MD Unavailable [facility]available +[phone] Jason Alvares MD Unavailable Ruth Riddle DPM, Podiatry /Foot and Ankle Surgery Unavailable Omar Carmona MD Primary Care Provider [phone] Jignesh Mathias MD Unavailable Adonay Haq MD Unavailable [phone] Omar bragg MD Unavailable +[phone] Jason Alvares MD Unavailable Jignesh Mathias MD Unavailable Ayad Lopez PhD LP Unavailable +[phone] Gavi Nieto-C Unavailable +[phone] Reason for Visit * Reason Onset Date Comments MyChart Communication 08/23/2019 Encounter Details Date Type Department Care Team (Latest Contact Info) Description 08/23/2019 MyC Medical Advice [facility] [address] [address] Rio Jaquez MD [address] [address] MyChart Communication Social History Tobacco Use Types Packs/Day Years Used Date Smoking Tobacco: Every Day Cigarettes 1 42.8 Started: 08/09/1982 Smokeless Tobacco: Never Alcohol Use Standard Drinks/Week Comments Yes 0 (1 standard drink = 0.6 oz pur e alcohol) occ Comments No Sex and Gender Information Value Date Recorded Sex Assigned at Female 09/12/2020 12:05 PM ACIDIZER Legal Sex Female 3:26 AM ACIDIZER Gender Identity Female 09/12/2020 12:05 PM ACIDIZER Sexual Orientation Straight 12/19/2021 10 :44 AM CDT Occupation Industry Job Start Date Job End Date on disability for FMS Not on file Not on file Not on file documented as of this encounter Miscellaneous Notes * Telephone Encounter - Michelle Sandoval - 08/23/2019 4:30 PM CST Replied to pt via Michelle Sandoval Heat Treating Operator on 08/23/2019 at 4:34 PM IZER documented in this encounter Plan of Treatment Upcoming Encounters Date Type Department Care Team (Late st Contact Info) Description 06/13/2025 6:00 PM ACIDIZER Ancillary Procedure [facility] [address] [place] [phone] Omar Carmona MD [address] [place] [address] 676025 06/14/2025 4:00 PM ACIDIZER Office Visit [facility] [address] [place] [phone] Omar Carmona MD [address] [place] [address] 016065 06/15/2025 12:45 PM ACIDIZER Therapy Visit [facility] [address] [address] Jason Alvares MD [address] [place] [address] 513345 Chaya Castillo OTR [facility] [address] [place] [address] 06/19/2025 10:30 AM ACIDIZER Virtual Visit [facility] [address] [place] [phone] Omar Carmona MD [address] [place] [address] 869925 Gerson Santos, [facility] 06/26/2025 11:00 AM ACIDIZER Therapy Visit [address] [phone] Jason Alvares MD [address] [place] [address] Chaya Castillo OTR [address] [address] 07/09/2025 12:45 PM ACIDIZER Therapy Visit [address] [phone] Jason Alvares MD [address] [place] [address] [facility] [address] [place] [address] 07/18/2025 3:00 PM ACIDIZER Office Visit [facility] [address] [phone] Adonay Chapman APRN [address] 996995 11/05/2025 12:[address] [facility] [address] [phone] 11/05/2025 1:45 PM CDT Office Visit [facility] [place] 909 [facility] 3rd [place] [phone] Gavi Nieto PA-C Dermatology [address] [place] [address] 11/20/2025 10:30 AM CDT Virtual Visit [address] [place] [phone] Marquise Hanley MD [address] [place] [address] 433705 documented as of this encounter Goals Goal [...] Depression Total Score: 10 019 7:06 AM ACIDIZER documented as of this encounter Care Teams Raker Buffing Wheel Relationship Specialty Start Date End Date Rio Jaquez MD [address] [place] [address] 4 [place] [address] PCP - General Family Practice 12/02/10 07/13/24 Omar Carmona MD [address] [place] [address] PCP - General Family Medicine 07/14/24 Barry Kilpatrick MD [address] [place] [address] [id number] [place], [place] 337235 Neurology 07/19/14 Michlele Henderson I, RN Nurse Coordinator Neurology 07/19/14 Rio Jaquez MD [address] [place] [address] FL 4 [place], [place] 885185 Family Practice 10/15/14 Jemima Jaramillo MD corrections officer 11/20/14 Kelley Chin RN [address] 005355 Nurse Coordinator Cardiology 11/04/15 Sydnee Saleem MD [address] [place] [address] 508 [place], [place] 935845 Cardiology 11/04/15 Karlene Moya MD [address] [place] [address] [phone] Ophthalmology 06/24/17 Wilbert Quintero, OD [address] [place] [address] Optometry 06/24/17 Rod Gauthier DPM [address] [place] [address] 578115 [employer] Primary Podiatric Medicine 06/21/18 Nallely Hogue, RN Registered Nurse 02/20/19 11/23/22 Larisa Vargas, TANIA Specialty Social Service Technician Cardiology 04/18/19 03/06/22 Rio Jaquez MD 909 [facility] [place] 4 [place] [address] Assigned PCP 12/28/19 11/16/20 Ruth Yarbrough MD 420 [facility] 101 [place] [address] Assigned Endocrinology Provider 05/31/20 09/28/20 Francisco Lott MD 515 [facility] 88 [place], [place] 021415 Assigned Rheumatology Provider 05/31/20 12/13/21 Frida Grace MD [address] [place] [address] JASON ANDERSON [address] Assigned Pediatric Specialist Provider 05/31/20 09/08/20 Sydnee Saleem MD [address] [place] [address] [phone] Assigned Heart and Vascular Provider 05/31/20 10/22/20 Greg Ortega MD 909 [place] [address] Assigned Surgical Provider 06/23/20 12/06/21 Frida Grace MD [address] [place] [address] JASON ANDERSON [address] Assigned Surgical Provider 05/31/20 06/22/20 Jan Mahmood MD 516 [facility] [address] [place] [address] Gastroenterology 11/05/20 Brandt Quintana MD 1414 [place] [address] Resident 11/05/20 Jan Mahmood MD 516 [facility] [address] [place], [place] 328835 Assigned Gastroenterology Provider 12/01/20 Rio Jaquez MD 909 [facility] [place] 4 [place] [address] Assigned PCP 11/17/20 09/30/24 Dom Eason MD 717 [facility] 353 [place] [address] Internal Medicine 12/02/20 Jayla Plaza, RN Specialty Social Service Technician Hepatology 01/09/21 02/13/24 Jayla Plaza, RN Specialty Social Service Technician Hepatology 01/10/21 01/10/21 Sydnee Saleem MD 6550 [facility] [address] [place], [place] [phone] Assigned Heart and Vascular Provider 02/02/21 07/24/22 Phan Coello MD Assigned Neuroscience Provider 02/21/21 11/22/21 Cristian Barragan MD 2945 [place] [address] Assigned Infectious Disease Provider 02/21/21 03/06/22 Dom Eason MD 717 [facility] 353 [place] [address] Assigned Nephrology Provider 04/20/21 01/02/22 Jaimie Vernon, RN Specialty Social Service Technician Cardiology 10/28/21 Ruth Riddle, DPM, Podiatry/Foot and Ankle Surgery [address] [facility] 300 [place] [address] Assigned Musculoskeletal Provider 11/30/21 09/30/23 Luis Arrington MD [address] [place] [address] Assigned Neuroscience Provider 11/23/21 01/02/22 Jason Alvares MD [address] [place] [address] 295 [place] [address] Assigned Neuroscience Provider 01/03/22 05/15/22 Marquise Hanley MD [address] [place] [address] Endocrinology, Diabetes, and Metabolism 03/05/22 Vlad Ramey MD [address] [place] [address] 12756 Cardiovascular Disease 05/07/22 Joesph Crowe MD [address] [place] [address] Surgery 05/07/22 Luis Arrington MD [address] [place] [address] Assigned Neuroscience Provider 05/16/22 05/14/23 Michelle Padilla, RN Specialty Social Service Technician Cardiology 07/03/22 Vlad Ramey MD [address] [place] [address] 8[address] Assigned Heart and Vascular Provider 07/25/22 05/28/23 Marquise Hanley MD [address] [place] [address] Assigned Endocrinology Provider 08/15/22 Dom Eason MD [address] [place] [address] Assigned Nephrology Provider 11/28/22 02/19/23 Wagner Oliver MD 6401 [place] [address] Critical Care 12/15/22 Laura Epperson NP [address] [place] [address] 1932 [place] [address] Assigned Nephrology Provider 02/20/23 08/30/24 Thom Taveras MD [address] [place] [address], R[address] [place] [address] Assigned Cancer Care Provider 02/06/23 08/20/23 Joesph Crowe MD [address] [place] [address] Surgery 03/17/23 Joesph Crowe MD [address] [place] [address] Assigned Surgical Provider 04/03/23 09/30/24 Adonay Haq MD [address] [place] [address] Internal Medicine 06/14/23October, Denilson Jackson MD [address] [facility] [address] [place] [address] Assigned Heart and Vascular Provider 05/29/23 11/28/24 Jason Alvares MD [address] [place] [address] Assigned Neuroscience Provider 05/15/23 11/28/24 Ruth Riddle DPM, Podiatry/Foot and Ankle Surgery [address] [place] [address] Assigned Musculoskeletal Provider 10/22/23 Jignesh Mathias MD [address] [place] [address] Gastroenterology 09/25/24 Adonay Haq MD [address] [place] [address] Assigned PCP 10/01/24 12/28/24 Omar Carmona MD [address] [place] [address] Assigned PCP 12/29/24 Jason Alvares MD [address] [place] [address] Assigned Neuroscience Provider 12/29/24 Jignesh Mathias MD [address] [place] [address] 0[address]19 Assigned Surgical Provider 12/29/24 Ayad Lopez, PhD LP [address] [place] [address] 713495 Assigned Behavioral Health Provider 02/28/25 Gavi Nieto, PANavinC [address] [place], [place] 447675 Physician Company Accountant Dermatology 03/19/25 documented as of this encounter
--- OUTSIDE RECORDS SUMMARY | 2025-06-08 22:46 | XMS_ITS | Encounter Summary ---
Author Organization [facility] Address [address] [place] [address] Care Team Providers Care Log Deck Tender Name Role Phone Rio Jaquez MD Primary Care Provider + [phone] Barry Kilpatrick MD Unavailable Michelle Henderson RN Unavailable [phone] Rio Jaquez MD Unavailable +[phone] Jemima Jaramillo MD Unavailable Unavai Kelley Bautista RN Unavailable +[phone] Sydnee Saleem MD Unavailable [phone] Karlene Moya MD Unavailable [phone] Wilbert Quintero OD Unavailable +[phone] Rod GauthierM Unavailable +[phone] Nallely Hogue RN Unavailable Unavailable Larisa Vargas RN Unavailable Unavailable Rio Jaquez MD Unavailable +[phone] Ruth Yarbrough MD Unavailable +[phone] Francisco Lott MD Unavailable +[phone] Frida Grace MD Unavailable +[phone] Sydnee Saleem MD Unavailable +[phone] [...] NP Unavailable +[phone] Thom Taveras MD Unavailable [phone] Joesph Crowe MD Unavailable [phone] Joesph Crowe MD Unavailable +[phone] Adonay Haq MD Unavailable [phone] [facility] HealthcareDenilson MD Unavailable [phone] Jason Alvares MD Unavailable Ruth Riddle DPM, Podiatry /Foot and Ankle Surgery Unavailable Omar Carmona MD Primary Care Provider [phone] Jignesh Mathias MD Unavailable Adonay Haq MD Unavailable [phone] Omar bragg MD Unavailable [phone] Jsaon Alvares MD Unavailable Jignesh Mathias MD Unavailable Ayad Lopez PhD LP Unavailable [phone] Gavi Nieto-Keisha Unavailable +[phone] Encounter Details Date Type Department Care Team (Late st Contact Info) Description 11/06/2019 [facility] Rheumatology Clinic [address] [phone] Francisco Lott MD [address] [place] [address] Social History Tobacco Use Types Packs/Day Years Used Date Smoking Tobacco: Every Day Cigarettes 1 42.8 Started: 08/09/1982 Smokeless Tobacco: Never Alcohol Use Standard Drinks/Week Comments Yes 0 (1 standard drink = 0.6 oz pur e alcohol) occ Comments No Sex and Gender Information Value Date Recorded Sex Assigned at Female 09/12/2020 12:05 PM SALESPERSON BURIAL NEEDS Legal Sex Female 3:26 AM SALESPERSON BURIAL NEEDS Gender Identity Female 09/12/2020 12:05 PM SALESPERSON BURIAL NEEDS Sexual Orientation Straight 12/19/2021 10 :44 AM CDT Occupation Industry Job Start Date Job End Date on disability for FMS Not on file Not on file Not on file documented as of this encounter Plan of Treatment Upcoming Encounters Date Type Department Care Team (Late st Contact Info) Description 06/13/2025 6:00 PM SALESPERSON BURIAL NEEDS Ancillary Procedure [facility] CT Clinic [address] [phone] Omar Carmona MD [address] [place] [address] 995025 06/14/2025 4:00 PM SALESPERSON BURIAL NEEDS Office Visit [facility] Primary Care [address] [address] Omar Carmona MD [address] [place] [address] 168285 06/15/2025 12:45 PM SALESPERSON BURIAL NEEDS Therapy Visit [facility] Rehabilitation Services [address] [phone] Jason Alvares MD [address] [place] [address] 295 [place], [place] 189055 Chaya Castillo, LETA [facility] 150 [place] [address] 06/19/2025 10:30 AM SALESPERSON BURIAL NEEDS Virtual Visit [facility] Primary Care [address] [phone] Omar Carmona MD [address] [place] [address] 986455 Gerson Santos FARZAD 06/26/2025 11:00 AM SALESPERSON BURIAL NEEDS Therapy Visit [address] [phone] Jason Alvares MD [address] [place] [address] Chaya Castillo, OTR [address] [address] 07/09/2025 12:45 PM SALESPERSON BURIAL NEEDS Therapy Visit [address] [phone] Jason Alvares MD [address] [place] [address] Chaya Castillo, OTR [address] [address] 07/18/2025 3:00 PM SALESPERSON BURIAL NEEDS Office Visit [facility] Heart Clinic [address] [phone] Adonay Chapman APRN [facility] 500 [place] [address] 11/05/2025 12:30 PM CDT Lab [facility] Lab [address] [phone] 11/05/2025 1:45 PM CDT Office Visit [facility] Dermatology Clinic [address] 3rd [place] [phone] Gavi Nieto PA-C Dermatology [address] [place] [address] 11/20/2025 10:30 AM CDT Virtual Visit [address] [address] Marquise Hanley MD [address] [place] [address] documented as of this encounter Goals Goal [...] Depression Total Score: 10 019 7:06 AM SALESPERSON BURIAL NEEDS documented as of this encounter Care Teams Log Deck Tender Relationship Specialty Start Date End Date Rio Jaquez MD [address] [place] [address] PCP - General Family Practice 12/02/10 07/13/24 Omar Carmona MD [address] [place] [address] 20111 PCP - General Family Medicine 07/14/24 Barry Kilpatrick MD [address] [place] [address] [id number] [place] [address] Neurology 07/19/14 Michelle Henderson I, RN Nurse Coordinator Neurology 07/19/14 Rio Jaquez MD [address] [place] [address] 948445 Family Practice 10/15/14 Jemima Jaramillo MD [employer] membership advisors 11/20/14 Kelley Chin, TANIA [email or web address] 909 [place], [place] 636845 Nurse Coordinator Cardiology 11/04/15 Sydnee Saleem MD 420 [facility] 508 [place], [place] 808795 Cardiology 11/04/15 Karlene Moya MD 6 [place], [place] 594105 Ophthalmology 06/24/17 Wilbert Quintero, OD [address] [place] [address] 778385 Optometry 06/24/17 Rod Gauthier DPM [address] [place] [address] 869295 Research Associate Policy Primary Podiatric Medicine 06/21/18 Nallely Hogue, RN Registered Nurse 02/20/19 11/23/22 Larisa Vargas, TANIA Specialty Shift Mgr Cardiology 04/18/19 03/06/22 Rio Jaquez MD [address] [place] [address] 812425 Assigned PCP 12/28/19 11/16/20 Ruth Yarbrough MD 420 [facility] 101 [place], [place] 281245 Assigned Endocrinology Provider 05/31/20 09/28/20 Francisco Lott MD [address] [place] [address] Assigned Rheumatology Provider 05/31/20 12/13/21 Frida Grace MD 3305 [facility] JASON ANDERSON [address] Assigned Pediatric Specialist Provider 05/31/20 09/08/20 Sydnee Saleem MD [address] [address] Assigned Heart and Vascular Provider 05/31/20 10/22/20 Greg Ortega MD [address] [place] [address] Assigned Surgical Provider 06/23/20 12/06/21 Frida Grace MD [address] [place] [address] JASON ANDERSON [address] Assigned Surgical Provider 05/31/20 06/22/20 Jan Mahmood MD [address] [place] [address] Gastroenterology 11/05/20 Brandt Quintana MD [address] [place] [address] Resident 11/05/20 Jan Mahmood MD [address] [place] [address] Assigned Gastroenterology Provider 12/01/20 Rio Jaquez MD 909 [facility] 4 [place] [address] Assigned PCP 11/17/20 09/30/24 Dom Eason MD [address] [place] [address] 353 [place] [address] Internal Medicine 12/02/20 Jayla Plaza, RN Specialty Shift Mgr Hepatology 01/09/21 02/13/24 Jayla Plaza, RN Specialty Shift Mgr Hepatology 01/10/21 01/10/21 Sydnee Saleem MD [address] [place] [address] Assigned Heart and Vascular Provider 02/02/21 07/24/22 Phan Coello MD Assigned Neuroscience Provider 02/21/21 11/22/21 Cristian Barragan MD 2945 [place] [address] Assigned Infectious Disease Provider 02/21/21 03/06/22 Dom Eason MD [address] [place] [address] 353 [place] [address] Assigned Nephrology Provider 04/20/21 01/02/22 Jaimie Vernon, RN Specialty Shift Mgr Cardiology 10/28/21 Ruth Riddle, DPM, Podiatry/Foot and Ankle Surgery [address] [place] [address] Assigned Musculoskeletal Provider 11/30/21 09/30/23 Luis Arrington MD [address] [place] [address] Assigned Neuroscience Provider 11/23/21 01/02/22 Jason Alvares MD [address] [place] [address] Assigned Neuroscience Provider 01/03/22 05/15/22 Marquise Hanley MD [address] [place] [address] Endocrinology, Diabetes, and Metabolism 03/05/22 Vlad Ramey MD [address] [place] [address] 98026 Cardiovascular Disease 05/07/22 Joesph Crowe MD [address] [place] [address] 38639 Surgery 05/07/22 Luis Arrington MD [address] [place] [address] 25628 Assigned Neuroscience Provider 05/16/22 05/14/23 Michelle Padilla RN Specialty Shift Mgr Cardiology 07/03/22 Vlad Ramey MD [address] [place] [address] 56503 Assigned Heart and Vascular Provider 07/25/22 05/28/23 Marquise Hanley MD [address] [place] [address] 0[address] Assigned Endocrinology Provider 08/15/22 Dom Eason MD 717 [facility] [address] [place] [address] Assigned Nephrology Provider 11/28/22 02/19/23 Wagner Oliver MD [address] [place] [address] Critical Care 12/15/22 Laura Epperson NP 7 [facility] [address] [place] [address] Assigned Nephrology Provider 02/20/23 08/30/24 Thom Taveras MD [facility] [address], [address] [place] [address] Assigned Cancer Care Provider 02/06/23 08/20/23 Joesph Crowe MD [address] [place] [address] 38[address] Surgery 03/17/23 Joesph Crowe MD [address] [place] [address] 39467 Assigned Surgical Provider 04/03/23 09/30/24 Adonay Haq MD [address] [place] [address] 40865 Internal Medicine 06/14/23OctoberDenilson MD [address] [place] [address] Assigned Heart and Vascular Provider 05/29/23 11/28/24 Jason Alvares MD 420 [facility] 295 [place] [address] Assigned Neuroscience Provider 05/15/23 11/28/24 Ruth Riddle, DPM, Podiatry/Foot and Ankle Surgery [address] [place], [place] 350327 Assigned Musculoskeletal Provider 10/22/23 Jignesh Mathias MD [address] [place] [address] 219535 Gastroenterology 09/25/24 Adonay Haq MD [address] [place] [address] 297075 Assigned PCP 10/01/24 12/28/24 Omar Carmona MD [address] [place] [address] 362775 Assigned PCP 12/29/24 Jason Alvares MD [address] [place] [address] 5[address] Assigned Neuroscience Provider 12/29/24 Jignesh Mathias MD [address] [place] [address] 30547 Assigned Surgical Provider 12/29/24 Ayad Lopez, PhD LP [address] [place] [address] 47[address] Assigned Behavioral Health Provider 02/28/25 Gavi Nieto PA-C 500 [place], [place] 393425 Physician [employer] Professional Dermatology 03/19/25 documented as of this encounter
--- OUTSIDE RECORDS SUMMARY | 2025-06-08 22:47 | XMS_ITS | Encounter Summary ---
Author Organization [facility] Address [address] [place] [address]01 Care Team Providers Care Staff Physical Therapist Name Role Phone Barry Kilpatrick MD Unavailable Michelle Henderson RN Unavailable [phone] Rio Jaquez MD Unavailable +[phone] Jemima Jaramillo MD Unavailable Unavai Kelley Bautista RN Unavailable [phone] Sydnee Saleem MD Unavailable +[phone] Karlene Moya MD Unavailable +[phone] Wilbert Quintero OD Unavailable +[phone] Rod Gauthier DPM Unavailable +[phone] Jan Mahmood MD Unavailable +[phone] Brandt Quintana MD Unavailable Jan Mahmood MD Unavailable +[phone] Dom Eason MD Unavailable +[phone] Jaimie Vernon RN Unavailable Unavailable Marquise Hanley MD Unavailable +[phone] lVad Ramey MD Unavailable +[phone] Joesph Crowe MD Unavailable Michelle Padilla RN Unavailable Unavaila ble Marquise Hanley MD Unavailable +[phone] Wagner Oliver MD Unavailable + [phone] Joesph Crowe MD Unavailable +[phone] Adonay Haq MD Unavailable [phone] Ruth RiddleM, Podiatry /Foot and Ankle Surgery Unavailable Omar Carmona MD Primary Care Provider [phone] Jignesh Mtahias MD Unavailable Omar Carmona MD Unavailable +[phone] Jason Alvares MD Unavailable Jignesh Mathias MD Unavailable Ayad Lopez PhD LP Unavailable +[phone] Gavi Nieto PA-C Unavailable +[phone] Encounter Details Date Type Department Care Team (Latest Contact Info) Description 04/29/2025 Travel Social History Tobacco Use Types Packs/Day [...] Answer Date Recorded PHQ-2 Score 2 04/11/2025 [facility] [place] of Occupat ional Health - Occupational Stress [...] Assigned at Female 09/12/2020 12:05 PM MANAGER LOSS PREVENTION Legal Sex Female 3:26 AM MANAGER LOSS PREVENTION Gender Identity Female 09/12/2020 12:05 PM MANAGER LOSS PREVENTION Sexual Orientation Straight 12/19/2021 10 :44 AM CDT Occupation Industry Job Start Date Job End Date on disability for FMS Not on file Not on file Not on file disabled Not on file Not on file Not on file documented as of this encounter Plan of Treatment Upcoming Encounters Date Type Department Care Team (Late st Contact Info) Description 06/13/2025 6:00 PM MANAGER LOSS PREVENTION Ancillary Procedure [facility] [address] [phone] Omar Carmona MD [address] [place] [address] [id number] 06/14/2025 4:00 PM MANAGER LOSS PREVENTION Office Visit [facility] [address] [phone] Omar Carmona MD [address] [place] [address] [id number] 06/15/2025 12:45 PM MANAGER LOSS PREVENTION Therapy Visit [facility] [address] [phone] Jason Alvares MD 420 [facility] 295 [place], [place] [phone] Chaya Castillo, OTR [facility] 150 [place] [address] 06/19/2025 10:30 AM MANAGER LOSS PREVENTION Virtual Visit [facility] [address] [phone] Omar Carmona MD [address] [place] [address] 997285 Gerson Santos RPH 06/26/2025 11:00 AM MANAGER LOSS PREVENTION [facility] 150 [place] [phone] Jason Alvares MD [address] [place] [address] Chaya Castillo OTR [facility] 150 [place] [address] 07/09/2025 12:45 PM MANAGER LOSS PREVENTION Therapy Visit [facility] 150 [place] [phone] Jason Alvares MD [address] [place] [address] Chaya Castillo OTR [facility] 150 [place] [address] 07/18/2025 3:00 PM MANAGER LOSS PREVENTION Office Visit [facility] [address] [phone] Adonay Chapman APRN [address] [address] 11/05/2025 12:30 PM CDT Lab [facility] [address] [phone] 11/05/2025 1:45 PM CDT Office Visit [facility] [address]rd [place] [phone] Gavi Nieto PA-C Dermatology [address] [place] [address] 11/20/2025 10:30 AM CDT Virtual Visit [address] [phone] Marquise Hanley MD [address] [place] [address] [phone] documented as of this encounter Goals Goal [...] documented as of this encounter Care Teams Staff Physical Therapist Relationship Specialty Start Date End Date Omar Carmona MD [address] [place] [address] 33955 PCP - General Family Medicine 07/14/24 Barry Kilpatrick MD [address] [place] [address] [id number] [place] [address] Neurology 07/19/14 Michelle Henderson RN Nurse Coordinator Neurology 07/19/14 Rio Jaquez MD [address] [place] [address] Family Practice 10/15/14 Jemima Jaramillo MD [address] [place] [address] 36458 global sales manager 11/20/14 Kelley Chin, TANIA [address] [address] Nurse Coordinator Cardiology 11/04/15 Sydnee Saleem MD 420 [facility] 508 [place], [place] 388495 Cardiology 11/04/15 Karlene Moya MD 6 [place], [place] 252375 Ophthalmology 06/24/17 Wilbert Quintero OD 909 [place], [place] 701055 Optometry 06/24/17 Rod Gauthier DPM 909 [place], [place] 660805 Controlled Area Checker Primary Podiatric Medicine 06/21/18 Jan Mahmood MD [address] [place] [address] Gastroenterology 11/05/20 Brandt Quintana MD [address] [place] [address] Resident 11/05/20 Jan Mahmood MD 6 [facility] 2A [place] [address] Assigned Gastroenterology Provider 12/01/20 Dom Eason MD 717 [facility] 353 [place] [address] Internal Medicine 12/02/20 Jaimie Vernon, RN Specialty Property Maintenance Supervisor Cardiology 10/28/21 Marquise Hanley MD [address] [place] [address] Endocrinology, Diabetes, and Metabolism 03/05/22 Vlad Ramey MD [address] [place] [address] 61767 Cardiovascular Disease 05/07/22 Joesph Crowe MD [address] [place] [address] 16003 Surgery 05/07/22 Michelle Padilla RN Specialty Property Maintenance Supervisor Cardiology 07/03/22 Marquise Hanley MD [address] [place] [address] 61249 Assigned Endocrinology Provider 08/15/22 Wagner Oliver MD [address] [place], [place] 940775 Critical Care 12/15/22 Joesph Crowe MD [address] [place] [address] 31258 Surgery 03/17/23 Adonay Haq MD [address] [place] [address] 5[address] Internal Medicine 06/14/23 Ruth Riddle DPM, Podiatry/Foot and Ankle Surgery [address] [place] [phone] Assigned Musculoskeletal Provider 10/22/23 Jignesh Mathias MD [address] [place] [address] 201025 Gastroenterology 09/25/24 Omar Carmona MD [address] [place] [address] [phone] Assigned PCP 12/29/24 Jason Alvares MD [address] [place] [address] Assigned Neuroscience Provider 12/29/24 Jignesh Mathias MD [address] [place] [address] [phone] Assigned Surgical Provider 12/29/24 Ayad Lopez, PhD LP [address] [place] [address] 879745 Assigned Behavioral Health Provider 02/28/25 Gavi Nieto PA-C [address] [place] [address] 418295 Physician Personnel Security Assistant Dermatology 03/19/25 documented as of this encounter
--- OUTSIDE RECORDS SUMMARY | 2025-06-08 22:47 | XMS_ITS | Encounter Summary ---
Author Organization [facility] Address [address] [place] [address] Care Team Providers Care Telesales Professional Name Role Phone Rio Jaquez MD Primary Care Provider Barry Kilpatrick MD Unavailable Michelle Henderson I RN Unavailable [phone] Rio Jaquez MD Unavailable [phone] Jemima Jaramillo MD Unavailable Unavai Kelley Bautista RN Unavailable [phone] Sydnee Saleem MD Unavailable [phone] Karlene Moya MD Unavailable Wilbert Quintero OD Unavailable +[phone] Rod Gauthier DPM Unavailable Jan Mahmood MD Unavailable [phone] Brandt Quintana MD Unavailable Jan Mahmood MD Unavailable +[phone] Rio Jaquez MD Unavailable [phone] Dom Eason MD Unavailable Jayla Plaza [...] Unavailable +[phone] Dom Eason MD Unavailable +[phone] Wagner Oliver MD Unavailable [phone] Laura Epperson NP Unavailable +[phone] Thom Taveras MD Unavailable [phone] Joesph Crowe MD Unavailable +[phone] Joesph Crowe MD Unavailable +[phone] Adonay Haq MD Unavailable +[phone] Denilson Srinivasan MD Unavailable + [phone] Jason Alvares MD Unavailable Ruth Riddle DPM, Podiatry /Foot and Ankle Surgery Unavailable Omar Carmona MD Primary Care Provider [phone] Jignesh Mathias MD Unavailable Adonay Haq MD Unavailable +[phone] Omar Carmona MD Unavailable [phone] Jason Alvares MD Unavailable Jignesh Mathias MD Unavailable Ayad Lopez PhD LP Unavailable +[phone] Gavi NietoC Unavailable [phone] Encounter Details Date Type Department Care Team (Late st Contact Info) Description 12/29/2022 MyC Medical Advice [facility] [address] [phone] Veronica Herr Social History Tobacco [...] than three times a week 08/27/2021 Attends [employer] Services Not on file 08/27 Do you belong to any clubs o r organizations such as yarsani groups, unions, fraternal or athletic groups, or [...] Answer Date Recorded PHQ-2 Score 2 10/21/2022 [facility] of Occupat ional Health [...] Assigned at Female 09/12/2020 12:05 PM METER READER INSPECTOR Legal Sex Female 3:26 AM METER READER INSPECTOR Gender Identity Female 09/12/2020 12:05 PM METER READER INSPECTOR Sexual Orientation Straight 12/19/2021 10 :44 [...] st Contact Info) Description 06/13/2025 6:00 PM METER READER INSPECTOR Ancillary Procedure [facility] [address] [place] [phone] Omar Carmona MD [address] [place] [address] 114315 06/14/2025 4:00 PM METER READER INSPECTOR Office Visit [address] [place] [phone] Omar Carmona MD [address] [place] [address] 06/15/2025 12:45 PM METER READER INSPECTOR Therapy Visit [facility] [address] [phone] Jason Alvares MD [address] [place] [address] 295 [place], [place] [phone] Chaya Castillo OTR [facility] 150 [place] [address] 06/19/2025 10:30 AM METER READER INSPECTOR Virtual Visit [facility] [address] [place] [phone] Omar Carmona MD [address] [place] [address] [phone] Gerson Santos, [facility] 06/26/2025 11:00 AM METER READER INSPECTOR Therapy Visit [facility] 150 [place] [phone] Jason Alvares MD [address] [place] [address] 266105 Chaya Castillo, OTR [address] [address] 07/09/2025 12:45 PM METER READER INSPECTOR Therapy Visit [address] [phone] Jason Alvares MD [address] [place] [address] 207185 Chaya Castillo, OTR [address] [address] 07/18/2025 3:00 PM METER READER INSPECTOR Office Visit [facility] [address] [phone] Adonay Chapman APRN [facility] 500 [place], [place] [address]605 11/05/2025 12:30 PM CDT Lab [facility] [address] [phone] 11/05/2025 1:45 PM CDT Office Visit [facility] [address] [place] [phone] Gavi Nieto PA-C Dermatology [address] [place] [address] 11/20/2025 10:30 AM CDT Virtual Visit [address] [phone] Marquise [place] MD 909 [place] [address] documented as of this encounter Goals Goal [...] documented as of this encounter Care Teams Telesales Professional Relationship Specialty Start Date End Date Rio Jaquez MD 909 [facility] [place] 4 [place] [address] PCP - General Family Practice 12/02/10 07/13/24 Omar Carmona MD [address] [place] [address] PCP - General Family Medicine 07/14/24 Barry Kilpatrick MD 9 [facility] MD8144CR [place] [address] Neurology 07/19/14 Michelle Henderson I, RN Nurse Coordinator Neurology 07/19/14 Rio Jaquez MD [address] [place] [address] 4 [place], [place] 086725 Family Practice 10/15/14 Jemima Jaramillo MD bill of lading clerk 11/20/14 Kelley Chin, TANIA [address] 061955 Nurse Coordinator Cardiology 11/04/15 Sydnee Saleem MD [address] [place] [address] 508 [place], [place] 597675 Cardiology 11/04/15 Karlene Moya MD [address] [place] [address] [phone] Ophthalmology 06/24/17 Wilbert Quintero, OD [address] [place] [address] 393505 Optometry 06/24/17 Rod Gauthier DPM [address] [place] [address] 444605 Director Business Primary Podiatric Medicine 06/21/18 Jan Mahmood MD [address] [place] [address] 2A [place], [place] 688495 Gastroenterology 11/05/20 Brandt Quintana MD [address] [place] [address] Resident 11/05/20 Jan Mahmood MD [address] [facility] 2A [place] [address] Assigned Gastroenterology Provider 12/01/20 Rio Jaquez MD [address] [place] [address] 759855 Assigned PCP 11/17/20 09/30/24 Dom Eason MD [address] [place] [address] 353 [place] [address] Internal Medicine 12/02/20 Jayla Plaza, RN Specialty Change Room Attendant Hepatology 01/09/21 02/13/24 Jaimie Vernon, RN Specialty Change Room Attendant Cardiology 10/28/21 Ruth Riddle DPM, Podiatry/Foot and Ankle Surgery [address] [address] Assigned Musculoskeletal Provider 11/30/21 09/30/23 Marquise Hanley MD [address] [place] [address] 265[address] Endocrinology, Diabetes, and Metabolism 03/05/22 Vlad Ramey MD [address] [place] [address] 990755 Cardiovascular Disease 05/07/22 Joesph Crowe MD [address] [place] [address] 144975 Surgery 05/07/22 Luis Arrington MD [address] [place] [address] 69369 Assigned Neuroscience Provider 05/16/22 05/14/23 Michelle Padilla, TANIA Specialty Change Room Attendant Cardiology 07/03/22 Vlad Ramey MD [address] [place] [address] 20279 Assigned Heart and Vascular Provider 07/25/22 05/28/23 Marquise Hanley MD [address] [place] [address] 67516 Assigned Endocrinology Provider 08/15/22 Dom Eason MD [address] [place] [address] Assigned Nephrology Provider 11/28/22 02/19/23 Wagner Oliver MD [address] [facility] [place] [address] Critical Care 12/15/22 Laura Epperson NP [address] [place] [address] 1932 [place] [address] Assigned Nephrology Provider 02/20/23 08/30/24 Thom Taveras MD [facility]2 [address], [address] [place] [address] Assigned Cancer Care Provider 02/06/23 08/20/23 Joesph Crowe MD [address] [place] [address] Surgery 03/17/23 Joesph Crowe MD [address] [place] [address] 57020 Assigned Surgical Provider 04/03/23 09/30/24 Adonay Haq MD [address] [place] [address]14 Internal Medicine 06/14/23OctoberDenilson MD 6405 [facility] [place] Black [facility] [address] [place] [address] Assigned Heart and Vascular Provider 05/29/23 11/28/24 Jason Alvares MD [address] [place] [address] 18038 Assigned Neuroscience Provider 05/15/23 11/28/24 Ruth Riddle DPM, Podiatry/Foot and Ankle Surgery [address] [place] [place], [place] 038587 Assigned Musculoskeletal Provider 10/22/23 Jignesh Mathias MD [address] [place] [address] 51666 Gastroenterology 09/25/24 Adonay Haq MD [address] [place] [address] 6[address] Assigned PCP 10/01/24 12/28/24 mOar Carmona MD [address] [place] [address] 222235 Assigned PCP 12/29/24 Jason Alvares MD [address] [place] [address] 324875 Assigned Neuroscience Provider 12/29/24 Jignesh Mathias MD [address] [place] [address] [phone] Assigned Surgical Provider 12/29/24 Ayad Lopez, PhD LP [address] [place] [address] 710235 Assigned Behavioral Health Provider 02/28/25 Gavi Nieto PANavinC [address] [place] [address] 194895 Physician Certified Medical Records Coder Dermatology 03/19/25 documented as of this encounter
--- OUTSIDE RECORDS SUMMARY | 2025-06-08 22:47 | XMS_ITS | Encounter Summary ---
Author Organization [place] Address [address] [place] [address] 9[address]85 Care Team Providers Care E Commerce Manager Name Role Phone Rio Jaquez MD Primary Care Provider Barry Kilpatrick MD Unavailable Michelle Henderson I RN Unavailable [phone] Rio Jaquez MD Unavailable +[phone] Jemima Jaramillo MD Unavailable Unavai Kelley Bautista RN Unavailable +[phone] Sydnee Saleem MD Unavailable +[phone] Karlene Moya MD Unavailable +[phone] Wilbert Quintero OD Unavailable +[phone] Rod Gauthier DPM Unavailable Jan Mahmood MD Unavailable +[phone] Brandt Quintana MD Unavailable Jan Mahmood MD Unavailable +[phone] Rio Jaquez MD Unavailable +[phone] Dom Eason MD Unavailable Jayla Plaza RN [...] Unavailable +[phone] Dom Eason MD Unavailable +[phone] Wagner Oliver MD Unavailable +[phone] Laura Epperson NP Unavailable +[phone] Thom Taveras MD Unavailable +[phone] Joesph Crowe MD Unavailable +[phone] Joesph Crowe MD Unavailable +[phone] Adonay Haq MD Unavailable +[phone] Denilson Srinivasan MD Unavailable + [phone] Jason Alvares MD Unavailable Ruth Riddle DPM, Podiatry /Foot and Ankle Surgery Unavailable Omar Carmona MD Primary Care Provider [phone] Jignesh Mathias MD Unavailable Adonay Haq MD Unavailable +1- Omar Carmona MD Unavailable +[phone] Jason Alvares MD Unavailable Jignesh Mathias MD Unavailable Ayad Lopez PhD LP Unavailable +[phone] Gavi Nieto PA-C Unavailable Encounter Details Date Type Department Care Team (Late st Contact Info) Description 01/25/2023 MyC Medical Advice [facility] [address] 4th [place] [address] Rio Jaquez MD [address] [place] [address] 4 [place] [address] Social History Tobacco Use Types [...] any clubs o r organizations such as oriental orthodox groups, unions, fraternal or athletic groups, [...] Date Recorded PHQ-2 Score 1 01/27/2023 [facility] - Occupational [...] Sex Assigned at Female 09/12/2020 12:05 PM MECHANICAL FITTER Legal Sex Female 3:26 AM MECHANICAL FITTER Gender Identity Female 09/12/2020 12:05 PM MECHANICAL FITTER Sexual Orientation Straight 12/19/2021 10 :44 AM [...] st Contact Info) Description 06/13/2025 6:00 PM MECHANICAL FITTER Ancillary Procedure [facility] Imaging Center [facility] Clinic [address] [place] [phone] Omar Carmona MD [address] [place] [address] 325065 06/14/2025 4:00 PM MECHANICAL FITTER Office Visit [facility] [address] [place] [phone] Omar Carmona MD [address] [place] [address] 919145 06/15/2025 12:45 PM MECHANICAL FITTER Therapy Visit [facility] Rehabilitation Services [address] [address] Jason Alvares MD [address] [place] [address] 295 [place], [place] 096105 Chaya Castillo OTR [address] [place] [address] 06/19/2025 10:30 AM MECHANICAL FITTER Virtual Visit [facility] [address] [place] [phone] Omar Carmona MD [address] [place] [address] 677055 Gerson Santos [facility] 06/26/2025 11:00 AM MECHANICAL FITTER Therapy Visit [facility] 150 [place] [phone] Jason Alvares MD [address] [place] [address] Chaya Castillo OTR [facility] 150 [place] [address] 07/09/2025 12:45 PM MECHANICAL FITTER Therapy Visit [facility] 150 [place] [phone] Jason Alvares MD [address] [place] [address] Chaya Castillo OTR [facility] 150 [place] [address] 07/18/2025 3:00 PM MECHANICAL FITTER Office Visit [facility] Heart Clinic [address] [phone] Adonay Chapman APRN [address] 577105 11/05/2025 12:30 PM CDT Lab [facility] Lab [address] [address] 11/05/2025 1:45 PM CDT Office Visit [facility] Dermatology Clinic [place] [address] [facility] 3rd [place] [phone] Gavi Nieto PA-C Dermatology [address] [place] [address] 11/20/2025 10:30 AM CDT Virtual Visit [address] [phone] Marquise Hanley MD [address] [place] [address] documented as of this encounter Goals Goal [...] documented as of this encounter Care Teams E Commerce Manager Relationship Specialty Start Date End Date Rio Jaquez MD [address] [place] [address] 36820 PCP - General Family Practice 12/02/10 07/13/24 Omar Carmona MD [address] [place] [address] 85970 PCP - General Family Medicine 07/14/24 Barry Kilpatrick MD [address] [place] [address] [id number] [place], [place] 811685 Neurology 07/19/14 Michelle Henderson I, RN Nurse Coordinator Neurology 07/19/14 Rio Jaquez MD [address] [place] [address] [address] 4 [place] [address] Family Practice 10/15/14 Jemima Jaramillo MD inspection and testing supervisor 11/20/14 Kelley Chin, TANIA [address] [phone] Nurse Coordinator Cardiology 11/04/15 Sydnee Saleem MD [address] [place] [address] [facility] [address] [place], [place] 167555 Cardiology 11/04/15 Karlene Moya MD [address] [place] [address] 139855 Ophthalmology 06/24/17 Wilbert Quintero, OD [address] [place] [address] Optometry 06/24/17 Rod Gauthier DPM [address] [place] [address] 826895 Assistant Manager Primary Podiatric Medicine 06/21/18 Jan Mahmood MD [address] [place] [address] [address] [place], [place] 726355 Gastroenterology 11/05/20 Brandt Quintana MD 1414 [place] [address] Resident 11/05/20 Jan Mahmood MD [facility] [place] [address] Assigned Gastroenterology Provider 12/01/20 Rio Jaquez MD 909 [facility] 4 [place], [place] 622825 Assigned PCP 11/17/20 09/30/24 Dom Eason MD 717 [facility] 353 [place] [address] Internal Medicine 12/02/20 Jayla Plaza, RN Specialty Workers' Compensation Mediator Hepatology 01/09/21 02/13/24 Jaimie Vernon, RN Specialty Workers' Compensation Mediator Cardiology 10/28/21 Ruth Riddle DPM, Podiatry/Foot and Ankle Surgery [address] [address] Assigned Musculoskeletal Provider 11/30/21 09/30/23 Marquise Hanley MD [address] [place] [address] 929175 Endocrinology, Diabetes, and Metabolism 03/05/22 Vlad Ramey MD [address] [place] [address] 839565 Cardiovascular Disease 05/07/22 Joesph Crwoe MD [address] [place] [address] 48598 Surgery 05/07/22 Luis Arrington MD [address] [place] [address] 50092 Assigned Neuroscience Provider 05/16/22 05/14/23 Michelle Padilla, TANIA Specialty Workers' Compensation Mediator Cardiology 07/03/22 Vlad Ramey MD [address] [place] [address] 937055 Assigned Heart and Vascular Provider 07/25/22 05/28/23 Marquise Hanley MD [address] [place] [address] 349655 Assigned Endocrinology Provider 08/15/22 Dom Eason MD 717 [facility] MICHAEL 353 [place], [place] 759224 Assigned Nephrology Provider 11/28/22 02/19/23 Wagner Oliver MD [address] [place] [address] Critical Care 12/15/22 Laura Epperson NP 717 [facility] [address] [place] [address] Assigned Nephrology Provider 02/20/23 08/30/24 Thom Taveras MD [address], [address] [place], [place] 712794 Assigned Cancer Care Provider 02/06/23 08/20/23 Joesph Crowe MD [address] [place] [address] 56[address] MD Surgery 03/17/23 Joesph Crowe MD [address] [place] [address] 558[address] Assigned Surgical Provider 04/03/23 09/30/24 Adonay Haq MD [address] [place] [address] 6[address] Internal Medicine 06/14/23OctoberDenilson MD 6405 [facility] CLEO Black [facility]00 [place] [address] Assigned Heart and Vascular Provider 05/29/23 11/28/24 Jason Alvares MD [address] [place] [address] 30[address] Assigned Neuroscience Provider 05/15/23 11/28/24 Ruth Riddle DPM, Podiatry/Foot and Ankle Surgery [address] [facility] 300 [place] [address] Assigned Musculoskeletal Provider 10/22/23 Jignesh Mathias MD [address] [place] [address] 92275 Gastroenterology 09/25/24 Adonay Haq MD [address] [place] [address] 28009 Assigned PCP 10/01/24 12/28/24 Omar Carmona MD [address] [place] [address] 170185 Assigned PCP 12/29/24 Jason Alvares MD [address] [place] [address] Assigned Neuroscience Provider 12/29/24 Jignesh Mathias MD [address] [place] [address] Assigned Surgical Provider 12/29/24 Ayad Lopez, PhD LP [address] [place] [address] Assigned Behavioral Health Provider 02/28/25 Gavi Nieto, PA-C [address] [place] [address] Physician Food Production Supervisor Dermatology 03/19/25 documented as of this encounter
--- OUTSIDE RECORDS SUMMARY | 2025-06-08 22:47 | XMS_ITS | Encounter Summary ---
Author Organization [place] Address [address] [place] [address] 969[address] Care Team Providers Care Striker Off Name Role Phone Rio Jaquez MD Primary Care Provider Barry Kilpatrick MD Unavailable Michelle Henderson I RN Unavailable [phone] Rio Jaquez MD Unavailable +[phone] Jemima Jaramillo MD Unavailable Unavai Kelley Bautista RN Unavailable [phone] Sydnee Saleem MD Unavailable +[phone] Karlene Moya MD Unavailable [phone] Wilbert Quintero OD Unavailable +[phone] Rod Gauthier DPM Unavailable Jan Mahmood MD Unavailable +[phone] Brandt Quintana MD Unavailable [phone] Jan Mahmood MD Unavailable +[phone] Rio Jaquez MD Unavailable +[phone] Dom Eason MD Unavailable Jayla Plaza RN [...] Unavailable +[phone] Dom Eason MD Unavailable +[phone] Wagner Oliver MD Unavailable +[phone] Laura Epperson NP Unavailable +[phone] Thom Taveras MD Unavailable +[phone] Joesph Crowe MD Unavailable +[phone] Joesph Crowe MD Unavailable +[phone] Adonay Haq MD Unavailable +[phone] Denilson Srinivasan MD Unavailable + [phone] Jason Alvares MD Unavailable Ruth Riddle DPM, Podiatry /Foot and Ankle Surgery Unavailable Omar Carmona MD Primary Care Provider +[phone] Jignesh Mathias MD Unavailable Adonay Haq MD Unavailable +1- Omar Carmona MD Unavailable +[phone] Jason Alvares MD Unavailable Jignesh Mathias MD Unavailable Ayad Lopez PhD LP Unavailable +[phone] Gavi NietoC Unavailable [phone] Encounter Details Date Type Department Care Team (Late st Contact Info) Description 12/16/2022 MyC Medical Advice [address] [address] Michelle Padilla RN Social History [...] Answer Date Recorded PHQ-2 Score 2 10/21/2022 [facility] - Occupational [...] place to sleep or slept in a chcf (including now)? No 08/27/2021 Comments No Sex and Gender Information Value Date Recorded Sex Assigned at Female 09/12/2020 12:05 PM PIPE STEM ALIGNER Legal Sex Female 3:26 AM PIPE STEM ALIGNER Gender Identity Female 09/12/2020 12:05 PM PIPE STEM ALIGNER Sexual Orientation Straight 12/19/2021 10 :44 AM [...] st Contact Info) Description 06/13/2025 6:00 PM PIPE STEM ALIGNER Ancillary Procedure [facility] Imaging Center CT Clinic [address] [phone] Omar Carmona MD [address] [place] [address] 175625 06/14/2025 4:00 PM PIPE STEM ALIGNER Office Visit [facility] Care [address] [phone] Omar Carmona MD [address] [place] [address] 06/15/2025 12:45 PM PIPE STEM ALIGNER Therapy Visit [facility] Rehabilitation Services [facility] 150 [place] [phone] Jason Alvares MD [address] [place] [address] 295 [place], [place] 659395 Chaya Castillo OTR [facility] 150 [place] [address] 06/19/2025 10:30 AM PIPE STEM ALIGNER Virtual Visit [facility] Primary [address] [place] [phone] Omar Carmona MD [address] [place] [address] 641635 Gerson Santos, MORENO 06/26/2025 11:00 AM PIPE STEM ALIGNER Therapy Visit [facility] 150 [place] [phone] Jason Alvares MD [address] [place] [address] 236985 Chaya Castillo, OTR [address] [address] 07/09/2025 12:45 PM PIPE STEM ALIGNER Therapy Visit [facility] 150 [place] [phone] Jason Alvares MD [address] [place] [address] 185325 Chaya Castillo, OTR [address] [address] 07/18/2025 3:00 PM PIPE STEM ALIGNER Office Visit [facility] Heart Clinic [address] [phone] Adonay Chapman APRN [address] 345925 11/05/2025 12:[address] [facility] Lab [address] [place] [phone] 11/05/2025 1:45 PM CDT Office Visit [facility] Dermatology Clinic [address] [place] [phone] Gavi Nieto PA-C Dermatology [address] [place] [address] 11/20/2025 10:30 AM CDT Virtual Visit [address] [address] Marquise Hanley MD 909 [place] [address] documented as of this encounter Goals Goal [...] documented as of this encounter Care Teams Striker Off Relationship Specialty Start Date End Date Rio Jaquez MD 9 [facility] [place] 4 [place] [address] PCP - General Family Practice 12/02/10 07/13/24 Omar Carmona MD [address] [place] [address] 43008 PCP - General Family Medicine 07/14/24 Barry Kilpatrick MD [address] [place] [address] [id number] [place] [address] Neurology 07/19/14 Michelle Henderson I, RN Nurse Coordinator Neurology 07/19/14 Rio Jaquez MD [address] [place] [address] 4 [place], [place] 727555 Family Practice 10/15/14 Jemima Jaramillo MD cyber special agent 11/20/14 Kelley Chin, TANIA [address] 100405 Nurse Coordinator Cardiology 11/04/15 Sydnee Saleem MD [address] [place] [address] 508 [place], [place] 030845 Cardiology 11/04/15 Karlene Moya MD [address] [place] [address] 399075 Ophthalmology 06/24/17 Wilbert Quintero, OD [address] [place] [address] 794705 Optometry 06/24/17 Rod Gauthier DPM [address] [place] [address] 625345 Gas Cutting Machine Operator Primary Podiatric Medicine 06/21/18 Jan Mahmood MD [address] [place] [address] 315045 Gastroenterology 11/05/20 Brandt Quintana MD [address] [place] [address] Resident 11/05/20 Jan Mahmood MD 516 [facility] 2A [place] [address] Assigned Gastroenterology Provider 12/01/20 Rio Jaquez MD [address] [place] [address] 413365 Assigned PCP 11/17/20 09/30/24 Dom Eason MD [address] [place] [address] 7[address]67 Internal Medicine 12/02/20 Jayla Plaza, RN Specialty Cloth Burler Hepatology 01/09/21 02/13/24 Jaimie Vernon, RN Specialty Cloth Burler Cardiology 10/28/21 Ruth Riddle DPM, Podiatry/Foot and Ankle Surgery [address] [address] Assigned Musculoskeletal Provider 11/30/21 09/30/23 Marquise Hanley MD [address] [place] [address] Endocrinology, Diabetes, and Metabolism 03/05/22 Vlad Ramey MD [address] [place] [address] 620795 Cardiovascular Disease 05/07/22 Joesph Crowe MD [address] [place] [address] 813435 Surgery 05/07/22 Luis Arrington MD [address] [place] [address] 26801 Assigned Neuroscience Provider 05/16/22 05/14/23 Michelle Padilla, RN Specialty Cloth Burler Cardiology 07/03/22 Vlad Ramey MD [address] [place] [address] 14698 Assigned Heart and Vascular Provider 07/25/22 05/28/23 Marquise Hanley MD [address] [place] [address] 36[address] Assigned Endocrinology Provider 08/15/22 Dom Eason MD [address] [place] [address] 353 [place] [address] Assigned Nephrology Provider 11/28/22 02/19/23 Wagner Oliver MD 6401 [place] [address] Critical Care 12/15/22 Laura Epperson NP [address] [place] [address] 1932 [place] [address] Assigned Nephrology Provider 02/20/23 08/30/24 Thom Taveras MD [facility] [address], [address] [place] [address] Assigned Cancer Care Provider 02/06/23 08/20/23 Joesph Crowe MD [address] [place] [address]32 Surgery 03/17/23 Joesph Crowe MD [address] [place] [address] 42683 Assigned Surgical Provider 04/03/23 09/30/24 Adonay Haq MD [address] [place] [address] 9[address] Internal Medicine 06/14/23OctoberDenilson MD 6405 [facility] CLEO Black [facility] W[address] [place] [address] Assigned Heart and Vascular Provider 05/29/23 11/28/24 Jason Alvares MD [address] [place] [address] 295 [place] [address] Assigned Neuroscience Provider 05/15/23 11/28/24 Ruth Riddle DPM, Podiatry/Foot and Ankle Surgery 458[address] [facility] [place] 300 [place], [place] 353477 Assigned Musculoskeletal Provider 10/22/23 Jignesh Mathias MD [address] [place] [address] 0[address] Gastroenterology 09/25/24 Adonay Haq MD [address] [place] [address] 22928 Assigned PCP 10/01/24 12/28/24 Omar Carmona MD [address] [place] [address] 387505 Assigned PCP 12/29/24 Jason Alvares MD [address] [place] [address] 480875 Assigned Neuroscience Provider 12/29/24 Jignesh Mathias MD [address] [place] [address] 445175 Assigned Surgical Provider 12/29/24 Ayad Lopez, PhD LP [address] [place] [address] [phone] Assigned Behavioral Health Provider 02/28/25 Gavi Nieto PANavinC [address] [place] [address] 724385 Physician Talk Show Host Dermatology 03/19/25 documented as of this encounter
--- OUTSIDE RECORDS SUMMARY | 2025-06-08 22:47 | XMS_ITS | Encounter Summary ---
Author Organization [facility] Address [address] [place] [address]70 Care Team Providers Care Baggage Clerk Name Role Phone iRo Jaquez MD Primary Care Provider Barry Kilpatrick MD Unavailable Michelle Henderson I RN Unavailable [phone] Rio Jaquez MD Unavailable +[phone] Jemima Jaramillo MD Unavailable Unavai Kelley Bautista RN Unavailable [phone] Sydnee Saleem MD Unavailable +[phone] Karlene Moya MD Unavailable Wilbert Quintero OD Unavailable +[phone] Rod Gauthier DPM Unavailable Jan Mamhood MD Unavailable +[phone] Brandt Quintana MD Unavailable [phone] Jan Mahmood MD Unavailable +[phone] Rio Jaquez MD Unavailable +[phone] Dom Eason MD Unavailable Jayla Plaza RN [...] Unavailable +[phone] Dom Eason MD Unavailable +[phone] Wagner Oliver MD Unavailable +[phone] Laura Epperson NP Unavailable +[phone] Thom Taveras MD Unavailable +[phone] Joesph Crowe MD Unavailable +[phone] Joesph Crowe MD Unavailable +[phone] Adonay Haq MD Unavailable +[phone] Denilson Srinivasan MD Unavailable + [phone] Jason Alvares MD Unavailable Ruth Riddle DPM, Podiatry /Foot and Ankle Surgery Unavailable Omar Carmona MD Primary Care Provider [phone] Jignesh Mathias MD Unavailable Adonay Haq MD Unavailable +1- Omar Carmona MD Unavailable +[phone] Jason Alvares MD Unavailable Jignesh Mathias MD Unavailable Ayad Lopez PhD LP Unavailable [phone] Gavi Nieto PA-C Unavailable Encounter Details Date Type Department Care Team (Late st Contact Info) Description 01/27/2023 MyC Medical Advice [facility] Primary Care Clinic [address] 4th [place] [address] Rio Jaquez MD [address] [place] [address] 4 [place] [address] Social History Tobacco Use Types [...] Answer Date Recorded PHQ-2 Score 1 01/27/2023 [facility] - [...] Sex Assigned at Female 09/12/2020 12:05 PM CENTRAL STERILE SUPPLY TECHNICIAN Legal Sex Female 3:26 AM CENTRAL STERILE SUPPLY TECHNICIAN Gender Identity Female 09/12/2020 12:05 PM CENTRAL STERILE SUPPLY TECHNICIAN Sexual Orientation Straight 12/19/2021 10 :44 [...] st Contact Info) Description 06/13/2025 6:00 PM CENTRAL STERILE SUPPLY TECHNICIAN Ancillary Procedure [facility] Imaging Center CT Clinic [address]st [place] [phone] Omar Carmona MD [address] [place] [address] [id number] 06/14/2025 4:00 PM CENTRAL STERILE SUPPLY TECHNICIAN Office Visit [facility] Primary Care Clinic [address] 4th [place] [phone] Omar Carmona MD [address] [place] [address] 192715 06/15/2025 12:45 PM CENTRAL STERILE SUPPLY TECHNICIAN Therapy Visit [facility] Rehabilitation Services [address] [address] Jason Alvares MD [address] [place] [address] 295 [place], [place] 824325 Chaya Castillo OTR [address] [place] [address] 06/19/2025 10:30 AM CENTRAL STERILE SUPPLY TECHNICIAN Virtual Visit [facility] Primary [facility] [address] [place] [phone] Omar Carmona MD [address] [place] [address] 659[address] Gerson [address] [facility] 06/26/2025 11:00 AM CENTRAL STERILE SUPPLY TECHNICIAN Therapy Visit [facility] [address] [place] [phone] Jason Alvares MD [address] [place] [address] Chaya Castillo OTR [facility] 150 [place] [address] 07/09/2025 12:45 PM CENTRAL STERILE SUPPLY TECHNICIAN Therapy Visit [facility] [address] [place] [phone] Jason Alvares MD [address] [place] [address] Chaya Castillo OTR [facility] 150 [place] [address] 07/18/2025 3:00 PM CENTRAL STERILE SUPPLY TECHNICIAN Office Visit [facility] Heart Clinic [address] [phone] Adonay Chapman APRN [address] 805235 11/05/2025 12:30 PM CDT Lab [facility] Lab [address] [address] 11/05/2025 1:45 PM CDT Office Visit [facility] Dermatology Clinic [place] 909 [facility] 3rd [place] [phone] Gavi Nieto PA-C Dermatology [address] [place] [address] 11/20/2025 10:30 AM CDT Virtual Visit [address] [phone] Marquise Hanley MD [address] [place] [address] documented as of this encounter Goals Goal [...] documented as of this encounter Care Teams Baggage Clerk Relationship Specialty Start Date End Date Rio Jaquez MD [address] [place] [address] PCP - General Family Practice 12/02/10 07/13/24 Omar Carmona MD [address] [place] [address] 548[address] PCP - General Family Medicine 07/14/24 Barry Kilpatrick MD [address] [place] [address] [id number] [place], [place] [phone] Neurology 07/19/14 Michelle Hendreson I, RN Nurse Coordinator Neurology 07/19/14 Rio Jaquez MD [address] [place] [address] [address] 4 [place] [address] Family Practice 10/15/14 Jemima Jaramillo MD hides inspector 11/20/14 Kelley Chin, TANIA [address] 046815 Nurse Coordinator Cardiology 11/04/15 Sydnee Saleem MD [address] [place] [address] [facility] [address] [place], [place] 100365 Cardiology 11/04/15 Karlene Moya MD [address] [place] [address] 582225 Ophthalmology 06/24/17 Wilbert Quintero, OD [address] [place] [address] Optometry 06/24/17 Rod Gauthier DPM [address] [place] [address] [phone] Cartography Teacher Primary Podiatric Medicine 06/21/18 Jan Mahmood MD [address] [place] [address] [address] [place], [place] 699105 Gastroenterology 11/05/20 Brandt Quintana MD 1414 [place] [address] Resident 11/05/20 Jan Mahmood MD [facility] [place] [address] Assigned Gastroenterology Provider 12/01/20 Rio Jaquez MD 909 [facility] 4 [place], [place] 882935 Assigned PCP 11/17/20 09/30/24 Dom Eason MD 717 [facility] 353 [place] [address] Internal Medicine 12/02/20 Jayla Plaza, RN Specialty Aerodynamic Consultant Hepatology 01/09/21 02/13/24 Jaimie Vernon, RN Specialty Aerodynamic Consultant Cardiology 10/28/21 Ruth Riddle DPM, Podiatry/Foot and Ankle Surgery [address] [address] Assigned Musculoskeletal Provider 11/30/21 09/30/23 Marquise Hanley MD [address] [place] [address] [phone] Endocrinology, Diabetes, and Metabolism 03/05/22 Vlad Ramey MD [address] [place] [address] 056325 Cardiovascular Disease 05/07/22 Joesph Crowe MD [address] [place] [address] 26460 Surgery 05/07/22 Luis Arrington MD [address] [place] [address] 91999 Assigned Neuroscience Provider 05/16/22 05/14/23 Michelle Padilla, TANIA Specialty Aerodynamic Consultant Cardiology 07/03/22 Vlad Ramey MD [address] [place] [address] [phone] Assigned Heart and Vascular Provider 07/25/22 05/28/23 Marquise Hanley MD [address] [place] [address] 058725 Assigned Endocrinology Provider 08/15/22 Dom Eason MD 717 [facility] MICHAEL 353 [place], [place] 591924 Assigned Nephrology Provider 11/28/22 02/19/23 Wagner Oliver MD [address] [place] [address] Critical Care 12/15/22 Laura Epperson NP 717 [facility] 1932 [place] [address] Assigned Nephrology Provider 02/20/23 08/30/24 Thom Taveras MD [address], [address] [place], [place] 043194 Assigned Cancer Care Provider 02/06/23 08/20/23 Joesph Crowe MD [address] [place] [address] 76[address] MD Surgery 03/17/23 Joesph Crowe MD [address] [place] [address] 00220 Assigned Surgical Provider 04/03/23 09/30/24 Adonay Haq MD [address] [place] [address] 270[address] Internal Medicine 06/14/23OctoberDenilson MD 6405 [facility] CLEO Black [facility]00 [place] [address] Assigned Heart and Vascular Provider 05/29/23 11/28/24 Jason Alvares MD [address] [place] [address] Assigned Neuroscience Provider 05/15/23 11/28/24 Ruth Riddle DPM, Podiatry/Foot and Ankle Surgery [address] [place] [facility] 300 [place] [address] Assigned Musculoskeletal Provider 10/22/23 Jignesh Mathias MD [address] [place] [address] 328[address] Gastroenterology 09/25/24 Adonay Haq MD [address] [place] [address] Assigned PCP 10/01/24 12/28/24 Omar Carmona MD [address] [place] [address] 697105 Assigned PCP 12/29/24 Jason Alvares MD [address] [place] [address] Assigned Neuroscience Provider 12/29/24 Jignesh Mathias MD [address] [place] [address] Assigned Surgical Provider 12/29/24 Ayad Lopez, PhD LP [address] [place] [address] Assigned Behavioral Health Provider 02/28/25 Gavi Nieto, PA-C [address] [place] [address] Physician Computer Programming Supervisor Dermatology 03/19/25 documented as of this encounter
--- OUTSIDE RECORDS SUMMARY | 2025-06-08 22:47 | XMS_ITS | Encounter Summary ---
Author Organization [facility] Address [address] [place] [address] Care Team Providers Care Lamination Inspector Name Role Phone Rio Jaquez MD Primary Care Provider Barry Kilpatrick MD Unavailable Michelle Henderson I RN Unavailable [phone] Rio Jaquez MD Unavailable [phone] Jemima Jaramillo MD Unavailable Unavai Kelley Bautista RN Unavailable [phone] Sydnee Saleem MD Unavailable [phone] Karlene Moya MD Unavailable +[phone] Wilbert Quintero OD Unavailable +[phone] Rod Gauthier DPM Unavailable Jan Mahmood MD Unavailable [phone] Brandt Quintana MD Unavailable Jan Mahmood MD Unavailable +[phone] Rio Jaquez MD Unavailable [phone] Dom Eason MD Unavailable Jayla Plaza [...] Unavailable +[phone] Dom Eason MD Unavailable +[phone] Wagner Oliver MD Unavailable [phone] Laura Epperson NP Unavailable +[phone] Thom Taveras MD Unavailable [phone] Joesph Crowe MD Unavailable +[phone] Joesph Crowe MD Unavailable +[phone] Adonay Haq MD Unavailable +[phone] Denilson Srinivasan MD Unavailable + [phone] Jason Alvares MD Unavailable Ruth Riddle DPM, Podiatry /Foot and Ankle Surgery Unavailable Omar Carmona MD Primary Care Provider [phone] Jignesh Mathias MD Unavailable Adonay Haq MD Unavailable +1- Omar Carmona MD Unavailable [phone] Jason Alvares MD Unavailable Jignesh Mathias MD Unavailable Ayad Lopez PhD LP Unavailable [phone] Gavi Nieto PA-C Unavailable Encounter Details Date Type Department Care Team (Late st Contact Info) Description 12/07/2022 MyC Medical Advice [facility] Hepatology Clinic [address] [address] Jan Mahmood MD [address] [place] [address] [address] [place] [address] Social History Tobacco Use Types Packs/Day Years [...] Answer Date Recorded PHQ-2 Score 2 10/21/2022 [facility] Occupat ional [facility] - Occupational Stress Questionnaire Answer Date [...] Sex Assigned at Female 09/12/2020 12:05 PM EXECUTIVE HOUSEKEEPER Legal Sex Female 3:26 AM EXECUTIVE HOUSEKEEPER Gender Identity Female 09/12/2020 12:05 PM EXECUTIVE HOUSEKEEPER Sexual Orientation Straight 12/19/2021 10 :44 AM [...] st Contact Info) Description 06/13/2025 6:00 PM EXECUTIVE HOUSEKEEPER Ancillary Procedure [facility] Imaging Center CT Clinic [address] 1st [place] [phone] Omar Caromna MD [address] [place] [address] [phone] 06/14/2025 4:00 PM EXECUTIVE HOUSEKEEPER Office Visit [facility] Primary Care Clinic [address] 4th [place] [phone] Omar Carmona MD [address] [place] [place] [address] 798865 06/15/2025 12:45 PM EXECUTIVE HOUSEKEEPER Therapy Visit [facility] Rehabilitation Services [address] [address] Jason Alvares MD [address] [place] [address] 295 [place], [place] 347935 Chaya Castillo, WESR [address] [address] 06/19/2025 10:30 AM EXECUTIVE HOUSEKEEPER Virtual Visit [facility] Primary Care Clinic [address] [place] [phone] Omar Carmona MD [address] [place] [address] 857415 Gerson Santos [facility] 06/26/2025 11:00 AM EXECUTIVE HOUSEKEEPER Therapy Visit [facility] 150 [place] [phone] Jason Alvares MD [address] [place] [address] Chaya Castillo OTR [facility] 150 [place] [address] 07/09/2025 12:45 PM EXECUTIVE HOUSEKEEPER Therapy Visit [facility] 150 [place] [phone] Jason Alvares MD [address] [place] [address] Chaya Castillo OTR [facility] 150 [place] [address] 07/18/2025 3:00 PM EXECUTIVE HOUSEKEEPER Office Visit [facility] Heart Clinic [address] [phone] Adonay Chapman APRN [address] 699705 11/05/2025 12:30 PM CDT Lab [facility] Lab [address] [phone] 11/05/2025 1:45 PM CDT Office Visit [facility] Dermatology [facility] 909 [facility] 3rd [place] [phone] Gavi Nieto PA-C Dermatology [address] [place] [address] 11/20/2025 10:30 AM CDT Virtual Visit [address] [phone] Marquise Hanley MD [address] [place] [place] [address] 86[address] documented as of this encounter Goals Goal [...] documented as of this encounter Care Teams Lamination Inspector Relationship Specialty Start Date End Date Rio Jaquez MD [address] [place] [address] PCP - General Family Practice 12/02/10 07/13/24 Omar Carmona MD [address] [place] [place] [address] 03167 PCP - General Family Medicine 07/14/24 Barry Kilpatrick MD [address] [place] [address] [id number] [place], [place] 826295 Neurology 07/19/14 Michelle Henderson I, RN Nurse Coordinator Neurology 07/19/14 Rio Jaquez MD [address] [place] [address] [address] 4 [place] [address] Family Practice 10/15/14 Jemima Jaramillo MD neurophysiologist 11/20/14 Kelley Chin, TANIA [address] 109765 Nurse Coordinator Cardiology 11/04/15 Sydnee Saleem MD [address] [place] [address] 508 [place], [place] 686345 Cardiology 11/04/15 Karlene Moya MD [address] [place] [address] Ophthalmology 06/24/17 Wilbert Quintero, OD [address] [place] [place] [address] 904165 Optometry 06/24/17 Rod Gauthier DPM [address] [place] [address] 596885 Mechanical Laboratory Technician Primary Podiatric Medicine 06/21/18 Jan Mahmood MD [address] [place] [address] [address] [place], [place] 420745 Gastroenterology 11/05/20 Brandt Quintana MD 1414 [place] [address] Resident 11/05/20 Jan Mahmood MD [facility] 2A [place] [address] Assigned Gastroenterology Provider 12/01/20 Rio Jaquez MD 909 [facility] 4 [place], [place] 849615 Assigned PCP 11/17/20 09/30/24 Dom Eason MD 717 [facility] 353 [place] [address] Internal Medicine 12/02/20 Jayla Plaza, RN Specialty Crossing Watchman Hepatology 01/09/21 02/13/24 Jaimie Vernon, RN Specialty Crossing Watchman Cardiology 10/28/21 Ruth Riddle DPM, Podiatry/Foot and Ankle Surgery [address] [address] Assigned Musculoskeletal Provider 11/30/21 09/30/23 Marquise Hanley MD [address] [place] [address] 062865 Endocrinology, Diabetes, and Metabolism 03/05/22 Vlad Ramey MD [address] [place] [place] [address] [phone] Cardiovascular Disease 05/07/22 Joesph Crowe MD [address] [place] [place] [address] 70362 Surgery 05/07/22 Luis Arrington MD [address] [place] [place] [address] 7[address] Assigned Neuroscience Provider 05/16/22 05/14/23 Michelle Padilla RN Specialty Crossing Watchman Cardiology 07/03/22 Vlad Ramey MD [address] [place] [address] 556455 Assigned Heart and Vascular Provider 07/25/22 05/28/23 Marquise Hanley MD [address] [place] [address] 637725 Assigned Endocrinology Provider 08/15/22 Dom Eason MD 717 [facility] MICHAEL 353 [place], [place] 379674 Assigned Nephrology Provider 11/28/22 02/19/23 Wagner Oliver MD [address] [place] [address] Critical Care 12/15/22 Laura Epperson NP 717 [facility] [address] [place] [address] Assigned Nephrology Provider 02/20/23 08/30/24 Thom Taveras MD [address] [facility], R105 [place], [place] 871344 Assigned Cancer Care Provider 02/06/23 08/20/23 Joesph Crowe MD [address] [place] [address] 73019 MD Surgery 03/17/23 Joesph Crowe MD [address] [place] [address] 18454 Assigned Surgical Provider 04/03/23 09/30/24 Adonay Haq MD [address] [place] [address] 91674 Internal Medicine 06/14/23OctoberDenilson MD 6405 [facility] CLE[facility] Black [facility]00 [place] [address] Assigned Heart and Vascular Provider 05/29/23 11/28/24 aJson Alvares MD [address] [place] [address] Assigned Neuroscience Provider 05/15/23 11/28/24 Ruth Riddle DPM, Podiatry/Foot and Ankle Surgery 56[address] [facility] 300 [place] [address] Assigned Musculoskeletal Provider 10/22/23 Jignesh Mathias MD [address] [place] [address] Gastroenterology 09/25/24 Adonay Haq MD [address] [place] [address] 569385 Assigned PCP 10/01/24 12/28/24 Omar Carmona MD [address] [place] [address] 197955 Assigned PCP 12/29/24 Jason Alvares MD [address] [place] [address] Assigned Neuroscience Provider 12/29/24 Jignesh Mathias MD [address] [place] [address] Assigned Surgical Provider 12/29/24 Ayad Lopez, PhD LP [address] [place] [address] Assigned Behavioral Health Provider 02/28/25 Gavi Nieto, PA-C [address] [place] [address] Physician Reservation Agent Dermatology 03/19/25 documented as of this encounter
--- OUTSIDE RECORDS SUMMARY | 2025-06-08 22:47 | XMS_ITS | Encounter Summary ---
Author Organization [facility] Address [address] [place] [address] Care Team Providers Care Evaporative Cooler Installer Name Role Phone Rio Jaquez MD Primary Care Provider Barry Kilpatrick MD Unavailable Michelle Henderson I RN Unavailable [phone] Rio Jaquez MD Unavailable +[phone] Jemima Jaramillo MD Unavailable Unavai Kelley Bautista RN Unavailable [phone] Sydnee Saleem MD Unavailable +[phone] Karlene Moya MD Unavailable Wilbert Quintero OD Unavailable +[phone] Rod Gauthier DPM Unavailable Jan Mahmood MD Unavailable +[phone] Brandt Quintana MD Unavailable Jan Mahmood MD Unavailable +[phone] Rio Jaquez MD Unavailable [phone] Dom Eason MD Unavailable Jayla Plaza RN [...] Unavailable +[phone] Dom Eason MD Unavailable +[phone] Wagner Oliver MD Unavailable +[phone] Laura Epperson NP Unavailable +[phone] Thom Taveras MD Unavailable +[phone] Joesph Crowe MD Unavailable +[phone] Joesph Crowe MD Unavailable +[phone] Adonay Haq MD Unavailable +[phone] Denilson Srinivasan MD Unavailable + [phone] Jason Alvares MD Unavailable Ruth Riddle DPM, Podiatry /Foot and Ankle Surgery Unavailable Omar Carmona MD Primary Care Provider [phone] Jignesh Mathias MD Unavailable Adonay Haq MD Unavailable +[phone] Omar Carmona MD Unavailable [phone] Jason Alvares MD Unavailable Jignesh Mathias MD Unavailable Ayad Lopez PhD LP Unavailable [phone] Gavi Nieto PA-C Unavailable Encounter Details Date Type Department Care Team (Late st Contact Info) Description 12/04/2022 MyC Medical Advice [facility]atology [facility] [address] [address] Jan Mahmood MD [address] [place] [address] [address] [place] [address] Social History Tobacco Use Types Packs/Day Years [...] Answer Date Recorded PHQ-2 Score 2 10/21/2022 [facility] - Occupational Stress Questionnaire Answer [...] Sex Assigned at Female 09/12/2020 12:05 PM LEGUILLON DEBEADER Legal Sex Female 3:26 AM LEGUILLON DEBEADER Gender Identity Female 09/12/2020 12:05 PM LEGUILLON DEBEADER Sexual Orientation Straight 12/19/2021 10 :44 AM [...] st Contact Info) Description 06/13/2025 6:00 PM LEGUILLON DEBEADER Ancillary Procedure [facility] [address]st [place] [phone] Omar Carmona MD [address] [place] [address] [id number] 06/14/2025 4:00 PM LEGUILLON DEBEADER Office Visit [facility] [address] 4th [place] [phone] Omar Carmona MD [address] [place] [address] 941665 06/15/2025 12:45 PM LEGUILLON DEBEADER Therapy Visit [facility] Rehabilitation Services [address] [address] Jason Alvares MD [address] [place] [address] 295 [place], [place] 673785 Chaya Castillo, WESR [address] [address] 06/19/2025 10:30 AM LEGUILLON DEBEADER Virtual Visit [facility] [address] [place] [phone] Omar Carmona MD [address] [place] [address] 205455 Gerson Santos [facility] 06/26/2025 11:00 AM LEGUILLON DEBEADER Therapy Visit [facility] [address] [place] [phone] Jason Alvares MD [address] [place] [address] Chaya Castillo OTR [facility] 150 [place] [address] 07/09/2025 12:45 PM LEGUILLON DEBEADER Therapy Visit [facility] [address] [place] [phone] Jason Alvares MD [address] [place] [address] Chaya Castillo OTR [facility] 150 [place] [address] 07/18/2025 3:00 PM LEGUILLON DEBEADER Office Visit [facility] Heart Clinic [address] [phone] Adonay Chapman APRN [address] 182685 11/05/2025 12:30 PM CDT Lab [facility] Lab [address] [phone] 11/05/2025 1:45 PM CDT Office Visit [facility] Dermatology [facility] [place] 909 [facility] 3rd [place] [phone] Gavi Nieto PA-C Dermatology [address] [place] [address] 11/20/2025 10:30 AM CDT Virtual Visit [address] [phone] Marquise Hanley MD [address] [place] [address] documented as of this encounter Goals Goal [...] documented as of this encounter Care Teams Evaporative Cooler Installer Relationship Specialty Start Date End Date Rio Jaquez MD [address] [place] [address] PCP - General Family Practice 12/02/10 07/13/24 Omar Carmona MD [address] [place] [address] PCP - General Family Medicine 07/14/24 Barry Kilpatrick MD [address] [place] [address] CV3956NM [place], [place] 299515 Neurology 07/19/14 Michelle Henderson I, RN Nurse Coordinator Neurology 07/19/14 Rio Jaquez MD [address] [place] [address] [address] 4 [place] [address] Family Practice 10/15/14 Jemima Jaramillo MD roving department supervisor 11/20/14 Kelley Chin, TANIA [address] 032105 Nurse Coordinator Cardiology 11/04/15 Sydnee Saleem MD [address] [place] [address] 508 [place], [place] [phone] Cardiology 11/04/15 Karlene Moya MD [address] [place] [address] Ophthalmology 06/24/17 Wilbert Quintero, OD [address] [place] [address] [phone] Optometry 06/24/17 Rod Gauthier DPM [address] [place] [address] 110425 Hazardous Material Specialist Primary Podiatric Medicine 06/21/18 Jan Mahmood MD [address] [place] [address] [address] [place], [place] 283785 Gastroenterology 11/05/20 Brandt Quintana MD 1414 [place] [address] Resident 11/05/20 Jan Mahmood MD 516 [facility] [place] [address] Assigned Gastroenterology Provider 12/01/20 Rio Jaquez MD 909 [facility] 4 [place], [place] 002715 Assigned PCP 11/17/20 09/30/24 Dom Eason MD 717 [facility] 353 [place] [address] Internal Medicine 12/02/20 Jayla Plaza, RN Specialty Workers' Compensation Mediator Hepatology 01/09/21 02/13/24 Jaimie Vernon, RN Specialty Workers' Compensation Mediator Cardiology 10/28/21 Ruth Riddle DPM, Podiatry/Foot and Ankle Surgery [address] [address] Assigned Musculoskeletal Provider 11/30/21 09/30/23 Marquise Hanley MD [address] [place] [address] 114855 Endocrinology, Diabetes, and Metabolism 03/05/22 Vlad Ramey MD [address] [place] [address] 326185 Cardiovascular Disease 05/07/22 Joesph Crowe MD [address] [place] [address] 8[address] Surgery 05/07/22 Luis Arrington MD [address] [place] [address] Assigned Neuroscience Provider 05/16/22 05/14/23 Michelle Padilla RN Specialty Workers' Compensation Mediator Cardiology 07/03/22 Vlad Ramey MD [address] [place] [address] 126395 Assigned Heart and Vascular Provider 07/25/22 05/28/23 Marquise Hanley MD [address] [place] [address] [phone] Assigned Endocrinology Provider 08/15/22 Dom Eason MD 717 [facility] 353 [place], [place] 539034 Assigned Nephrology Provider 11/28/22 02/19/23 Wagner Oliver MD [address] [place] [address] Critical Care 12/15/22 Laura Epperson NP 717 [facility] 1932 [place] [address] Assigned Nephrology Provider 02/20/23 08/30/24 Thom Taveras MD 25[address] [facility], R105 [place], [place] 420824 Assigned Cancer Care Provider 02/06/23 08/20/23 Joesph Crowe MD [address] [place] [address] 24[address] MD Surgery 03/17/23 Joesph Crowe MD [address] [place] [address] Assigned Surgical Provider 04/03/23 09/30/24 Adonay Haq MD [address] [place] [address] Internal Medicine 06/14/23OctoberDenilson MD 6405 [facility] CLEO Black [facility]00 [place] [address] Assigned Heart and Vascular Provider 05/29/23 11/28/24 Jason Alvares MD [address] [place] [address] Assigned Neuroscience Provider 05/15/23 11/28/24 Ruth Riddle DPM, Podiatry/Foot and Ankle Surgery [address] [facility] 300 [place] [address] Assigned Musculoskeletal Provider 10/22/23 Jignesh Mathias MD [address] [place] [address] Gastroenterology 09/25/24 Adonay Haq MD [address] [place] [address] 360955 Assigned PCP 10/01/24 12/28/24 Omar Carmona MD [address] [place] [address] 353925 Assigned PCP 12/29/24 Jason Alvares MD [address] [place] [address] Assigned Neuroscience Provider 12/29/24 Jignesh Mathias MD [address] [place] [address] Assigned Surgical Provider 12/29/24 Ayad Lopez, PhD LP [address] [place] [address] Assigned Behavioral Health Provider 02/28/25 Gavi Nieto, PA-C [address] [place] [address] Physician Managed Care Coordinator Dermatology 03/19/25 documented as of this encounter
--- OUTSIDE RECORDS SUMMARY | 2025-06-08 22:47 | XMS_ITS | Encounter Summary ---
Author Organization [facility] Address [address] [place] [address]31 Care Team Providers Care Administrative Court Justice Name Role Phone Barry Kilpatrick MD Unavailable Michelle Henderson RN Unavailable [phone] Rio Jaquez MD Unavailable [phone] Jemima Jaramillo MD Unavailable Unavai Kelley Bautista RN Unavailable [phone] Sydnee Saleem MD Unavailable [phone] Karlene Moya MD Unavailable [phone] Wilbert Quintero OD Unavailable +[phone] Rod Gauthier DPM Unavailable [phone] Jan Mahmood MD Unavailable [phone] Brandt Quintana MD Unavailable Jan Mahmood MD Unavailable [phone] Dom Eason MD Unavailable +[phone] Jaimie Vernon RN Unavailable Unavailable Marquise Hanley MD Unavailable +[phone] Vlad Ramey MD Unavailable +[phone] Joesph Crowe MD Unavailable Michelle Padilla RN Unavailable Unavaila ble Marquise Hanley MD Unavailable +[phone] Wagner Oliver MD Unavailable + [phone] Joesph Crowe MD Unavailable +[phone] Adonay Haq MD Unavailable [phone] Ruth RiddleM, Podiatry /Foot and Ankle Surgery Unavailable Omar Carmona MD Primary Care Provider [phone] Jignesh Mathias MD Unavailable Omar Carmona MD Unavailable [phone] Jason Alvares MD Unavailable Jignesh Mathias MD Unavailable Ayad Lopez PhD LP Unavailable [phone] Gavi Nieto PA-C Unavailable [phone] Encounter Details Date Type Department Care Team (Latest Contact Info) Description 04/30/2025 Travel Social History Tobacco Use Types Packs/Day [...] Answer Date Recorded PHQ-2 Score 2 04/11/2025 [facility] of Occupat ional Health - Occupational Stress [...] in an overnight retirement, or couch-surfing.) Yes 04/30/2025 Are you worried [...] Sex Assigned at Female 09/12/2020 12:05 PM WEB DESIGNER DEVELOPER Legal Sex Female 3:26 AM WEB DESIGNER DEVELOPER Gender Identity Female 09/12/2020 12:05 PM WEB DESIGNER DEVELOPER Sexual Orientation Straight 12/19/2021 10 :44 AM CDT Occupation Industry Job Start Date Job End Date on disability for FMS Not on file Not on file Not on file disabled Not on file Not on file Not on file documented as of this encounter Plan of Treatment Upcoming Encounters Date Type Department Care Team (Late st Contact Info) Description 06/13/2025 6:00 PM WEB DESIGNER DEVELOPER Ancillary Procedure [facility] CT Clinic [address] [phone] Omar Carmona MD [address] [place] [address] [phone] 06/14/2025 4:00 PM WEB DESIGNER DEVELOPER Office Visit [facility] [address] [phone] Omar Carmona MD [address] [place] [address] [phone] 06/15/2025 12:45 PM WEB DESIGNER DEVELOPER Therapy Visit [facility] Services [address] [phone] Jason Alvares MD 420 [facility] 295 [place], [place] [phone] Chaya Castillo, OTR [facility] 150 [place] [address] 06/19/2025 10:30 AM WEB DESIGNER DEVELOPER Virtual Visit [facility] Primary Care [address] [phone] Omar Carmona MD [address] [place] [address] [phone] Gerson Santos RPH 06/26/2025 11:00 AM WEB DESIGNER DEVELOPER Therapy Visit [facility] 150 [place] [phone] Jason Alvares MD [address] [place] [address] Chaya Castillo OTR [facility] 150 [place] [address] 07/09/2025 12:45 PM WEB DESIGNER DEVELOPER Therapy Visit [facility] 150 [place] [phone] Jason Alvares MD [address] [place] [address] Chaya Castillo OTR [facility] 150 [place] [address] 07/18/2025 3:00 PM WEB DESIGNER DEVELOPER Office Visit [facility] [address] [phone] Adonay Chapman APRN [address] [address] 11/05/2025 12:30 PM CDT Lab [facility] [address] [phone] 11/05/2025 1:45 PM CDT Office Visit [facility] Dermatology [facility] [address] 3rd [place] [phone] Gavi Nieto PA-C Dermatology [address] [place] [address] 11/20/2025 10:30 AM CDT Virtual Visit [address] [address] Marquise Hanley MD [address] [place] [address] 227545 documented as of this encounter Goals Goal [...] documented as of this encounter Care Teams Administrative Court Justice Relationship Specialty Start Date End Date Omar Carmona MD [address] [place] [address] 07189 PCP - General Family Medicine 07/14/24 Barry Kilpatrick MD [address] [place] [address] TB0021QI [place] [address] Neurology 07/19/14 Michelle Henderson RN Nurse Coordinator Neurology 07/19/14 Rio Jaquez MD [address] [place] [address]853 Family Practice 10/15/14 Jemima Jaramillo MD [address] [place] [address] 0[address] sustainability project manager 11/20/14 Kelley Chin, TANIA [address] [address] Nurse Coordinator Cardiology 11/04/15 Sydnee Saleem MD 420 [facility] 508 [place], [place] 273575 Cardiology 11/04/15 Karlene Moya MD 6 [place], [place] 507375 Ophthalmology 06/24/17 Wilbert Quintero OD 909 [place], [place] 409715 Optometry 06/24/17 Rod Gauthier DPM 909 [place], [place] 228605 Roll Changer Primary Podiatric Medicine 06/21/18 Jan Mahmood MD [address] [place] [address] Gastroenterology 11/05/20 Brandt Quintana MD [address] [place] [address] Resident 11/05/20 Jan Mahmood MD 6 [facility] 2A [place] [address] Assigned Gastroenterology Provider 12/01/20 Dom Eason MD 717 [facility] 353 [place] [address] Internal Medicine 12/02/20 Jaimie Vernon, RN Specialty Web Design Specialist Cardiology 10/28/21 Marquise Hanley MD [address] [place] [address] Endocrinology, Diabetes, and Metabolism 03/05/22 Vlad Ramey MD [address] [place] [address] 70387 Cardiovascular Disease 05/07/22 Joesph Crowe MD [address] [place] [address] 12501 Surgery 05/07/22 Michelle Padilla RN Specialty Web Design Specialist Cardiology 07/03/22 Marquise Hanley MD [address] [place] [address] 28692 Assigned Endocrinology Provider 08/15/22 Wagner Oliver MD [address] [place], [place] 649085 Critical Care 12/15/22 Joesph Crowe MD [address] [place] [address] 14638 Surgery 03/17/23 Adonay Haq MD [address] [place] [address] Internal Medicine 06/14/23 Ruth Riddle DPM, Podiatry/Foot and Ankle Surgery [address] [place] 137837 Assigned Musculoskeletal Provider 10/22/23 Jignesh Mathias MD [address] [place] [address] 097205 Gastroenterology 09/25/24 Omar Carmona MD [address] [place] [address] 116395 Assigned PCP 12/29/24 Jason Alvares MD [address] [place] [address] Assigned Neuroscience Provider 12/29/24 Jignesh Mathias MD [address] [place] [address] 101135 Assigned Surgical Provider 12/29/24 Ayad Lopez, PhD LP [address] [place] [address] 959115 Assigned Behavioral Health Provider 02/28/25 Gavi Nieto PA-C [address] [place] [address] 927825 Physician Rocket Motor Tester Dermatology 03/19/25 documented as of this encounter
--- OUTSIDE RECORDS SUMMARY | 2025-06-08 22:47 | XMS_ITS | Encounter Summary ---
Author Organization [place] Address [address] [place] [address] 19790 Care Team Providers Care Senior Animal Trainer Name Role Phone Rio Jaquez MD Primary Care Provider Barry Kilpatrick MD Unavailable Michelle Henderson I RN Unavailable [phone] Rio Jaquez MD Unavailable + [phone] Jemima Jaramillo MD Unavailable Unavai Kelley Bautista RN Unavailable [phone] Sydnee Saleem MD Unavailable +[phone] Karlene Moya MD Unavailable +[phone] Wilbert Quintero OD Unavailable +[phone] Rod Gauthier DPM Unavailable Jan Mahmood MD Unavailable +[phone] Brandt Quintana MD Unavailable Jan Mahmood MD Unavailable +[phone] Rio Jaquez MD Unavailable +[phone] Dom Eason MD Unavailable Jayla Plaza RN [...] Unavailable +[phone] Dom Eason MD Unavailable +[phone] Wagner Oliver MD Unavailable +[phone] Laura Epperson NP Unavailable +[phone] Thom Taveras MD Unavailable +[phone] Joesph Crowe MD Unavailable +[phone] Joesph Crowe MD Unavailable +[phone] Adonay Haq MD Unavailable +[phone] Denilson Srinivasan MD Unavailable + [phone] Jason Alvares MD Unavailable Ruth Riddle DPM, Podiatry /Foot and Ankle Surgery Unavailable Omar Carmona MD Primary Care Provider [phone] Jignesh Mathias MD Unavailable Adonay Haq MD Unavailable +1- Omar Carmona MD Unavailable +[phone] Jason Alvares MD Unavailable Jignesh Mathias MD Unavailable Ayad Lopez PhD LP Unavailable +[phone] Gavi NietoC Unavailable Encounter Details Date Type Department Care Team (Late st Contact Info) Description 12/28/2022 MyC Medical Advice [facility] Nephrology Clinic [address] [phone] Veronica Herr Social History Tobacco [...] than three times a week 08/27/2021 Attends [employer] Not on file 08/27 Do you [...] Answer Date Recorded PHQ-2 Score 2 10/21/2022 [facility] [...] Sex Assigned at Female 09/12/2020 12:05 PM COMPANY ACCOUNTANT Legal Sex Female 3:26 AM COMPANY ACCOUNTANT Gender Identity Female 09/12/2020 12:05 PM COMPANY ACCOUNTANT Sexual Orientation Straight 12/19/2021 10 :44 AM [...] st Contact Info) Description 06/13/2025 6:00 PM COMPANY ACCOUNTANT Ancillary Procedure [facility] Imaging Center CT Clinic [address]st [place] [phone] Omar Carmona MD [address] [place] [address] 054295 06/14/2025 4:00 PM COMPANY ACCOUNTANT Office Visit [address] 4th [place] [phone] Omar Carmona MD [address] [place] [address] 06/15/2025 12:45 PM COMPANY ACCOUNTANT Therapy Visit [facility] Rehabilitation Services [address] [phone] Jason Alvares MD [address] [place] [address] 295 [place], [place] [phone] Chaya Castillo OTR [facility] 150 [place] [address] 06/19/2025 10:30 AM COMPANY ACCOUNTANT Virtual Visit [facility] Primary Care [address] 4th [place] [phone] Omra Carmona MD [address] [place] [address] [phone] Gerson Santos, [facility] 06/26/2025 11:00 AM COMPANY ACCOUNTANT Therapy Visit [facility] 150 [place] [phone] Jason Alvares MD [address] [place] [address] 039805 Chaya Castillo, OTR [address] [address] 07/09/2025 12:45 PM COMPANY ACCOUNTANT Therapy Visit [address] [phone] Jason Alvares MD [address] [place] [address] 212575 Chaya Castillo, OTR [address] [address] 07/18/2025 3:00 PM COMPANY ACCOUNTANT Office Visit [facility] Heart Clinic [address] [phone] Adonay Chapman APRN [facility] 500 [place], [place] [address]335 11/05/2025 12:30 PM CDT Lab [facility] Lab [address] [phone] 11/05/2025 1:45 PM CDT Office Visit [facility] Dermatology Clinic [address]rd [place] [phone] Gavi Nieto PA-C Dermatology [address] [place] [address] 11/20/2025 10:30 AM CDT Virtual Visit [address] [phone] Marquise Hanley MD 909 [place] [address] documented as of this encounter Goals Goal [...] as of this encounter Care Teams Senior Animal Trainer Relationship Specialty Start Date End Date Rio Jaquez MD 909 [facility] [address] 4 [place] [address] PCP - General Family Practice 12/02/10 07/13/24 Omar Carmona MD [address] [place] [address] PCP - General Family Medicine 07/14/24 Barry Kilpatrick MD 9 [facility] [id number] [place] [address] Neurology 07/19/14 Michelle Henderson I, RN Nurse Coordinator Neurology 07/19/14 Rio Jaquez MD [address] [place] [address] 4 [place], [place] 684625 Family Practice 10/15/14 Jemima Jaramillo MD registration coordinator 11/20/14 Kelley Chin, TANIA [address] 730405 Nurse Coordinator Cardiology 11/04/15 Sydnee Saleem MD [address] [place] [address] 508 [place], [place] 655505 Cardiology 11/04/15 Karlene Moya MD [address] [place] [address] 854385 Ophthalmology 06/24/17 Wilbert Quintero, OD [address] [place] [address] 112595 Optometry 06/24/17 Rod Gauthier DPM [address] [place] [address] 355265 Dry Drug Worker Primary Podiatric Medicine 06/21/18 Jan Mahmood MD [address] [place] [address] 2[address] [place], [place] 940565 Gastroenterology 11/05/20 Brandt Quintana MD [address] [place] [address] Resident 11/05/20 Jan Mahmood MD [address] [facility] 2A [place] [address] Assigned Gastroenterology Provider 12/01/20 Rio Jaquez MD [address] [place] [address] 539395 Assigned PCP 11/17/20 09/30/24 Dom Eason MD [address] [place] [address] 353 [place] [address] Internal Medicine 12/02/20 Jayla Plaza, RN Specialty Surgical Services Manager Hepatology 01/09/21 02/13/24 Jaimie Vernon, RN Specialty Surgical Services Manager Cardiology 10/28/21 Ruth Riddle DPM, Podiatry/Foot and Ankle Surgery [address] [place] [address] [address] Assigned Musculoskeletal Provider 11/30/21 09/30/23 Marquise Hanley MD [address] [place] [address] Endocrinology, Diabetes, and Metabolism 03/05/22 Vlad Ramey MD [address] [place] [address] 272175 Cardiovascular Disease 05/07/22 Joesph Crowe MD [address] [place] [address] 056265 Surgery 05/07/22 Luis Arrington MD [address] [place] [address] Assigned Neuroscience Provider 05/16/22 05/14/23 Michelle Padilla, TANIA Specialty Surgical Services Manager Cardiology 07/03/22 Vlad Ramey MD [address] [place] [address] Assigned Heart and Vascular Provider 07/25/22 05/28/23 Marquise Hanley MD [address] [place] [address] Assigned Endocrinology Provider 08/15/22 Dom Eason MD [address] [place] [address] Assigned Nephrology Provider 11/28/22 02/19/23 Wagner Oliver MD 64[address] [facility] [place] [address] Critical Care 12/15/22 Laura Epperson NP [address] [place] [address] 1932 [place] [address] Assigned Nephrology Provider 02/20/23 08/30/24 Thom Taveras MD [facility] [address] [place] [address] Assigned Cancer Care Provider 02/06/23 08/20/23 Joesph Crowe MD [address] [place] [address] 23962 Surgery 03/17/23 Joesph rCowe MD [address] [place] [address]497 Assigned Surgical Provider 04/03/23 09/30/24 Adonay Haq MD [address] [place] [address] Internal Medicine 06/14/23OctoberDenilson MD 6405 [facility] CLEO Black [facility] [address] [place] [address] Assigned Heart and Vascular Provider 05/29/23 11/28/24 Jason Alvares MD [address] [place] [address] Assigned Neuroscience Provider 05/15/23 11/28/24 Ruth Riddle DPM, Podiatry/Foot and Ankle Surgery [address] [place], [place] 301327 Assigned Musculoskeletal Provider 10/22/23 Jignesh Mathias MD [address] [place] [address] Gastroenterology 09/25/24 Adonay Haq MD [address] [place] [address] Assigned PCP 10/01/24 12/28/24 Omar Carmona MD [address] [place] [address] 128825 Assigned PCP 12/29/24 Jason Alvaers MD [address] [place] [address] 887705 Assigned Neuroscience Provider 12/29/24 Jignesh Mathias MD [address] [place] [address] 243245 Assigned Surgical Provider 12/29/24 Ayad Lopez, PhD LP [address] [place] [address] 613135 Assigned Behavioral Health Provider 02/28/25 Gavi Nieto PANavinC [address] [place] [address] 297625 Physician Dog Barber Dermatology 03/19/25 documented as of this encounter
--- OUTSIDE RECORDS SUMMARY | 2025-06-08 22:47 | XMS_ITS | Encounter Summary ---
Author Organization [place] Address [address] [place] [address] Care Team Providers Care Floorman Name Role Phone Rio Jaquez MD Primary Care Provider Barry Kilpatrick MD Unavailable Michelle Henderson I RN Unavailable Rio Jaquez MD Unavailable +[phone] Jemima Jaramillo MD Unavailable Unavai Kelley Bautista RN Unavailable [phone] Sydnee Saleem MD Unavailable +[phone] Karlene Moya MD Unavailable Wilbert Quintero OD Unavailable +[phone] Rod Gauthier DPM Unavailable Jan Mahmood MD Unavailable [phone] Brandt Quintana MD Unavailable Jan Mahmood MD Unavailable +[phone] Rio Jaquez MD Unavailable +[phone] Dom Eason MD Unavailable Jayla Plaza RN [...] Unavailable +[phone] Dom Eason MD Unavailable +[phone] Wagner Oliver MD Unavailable +[phone] Laura Epperson NP Unavailable +[phone] Thom Taveras MD Unavailable +[phone] Joesph Crowe MD Unavailable +[phone] Joesph rCowe MD Unavailable +[phone] Adonay Haq MD Unavailable +[phone] Denilson Srinivasan MD Unavailable + [phone] Jason Alvares MD Unavailable Ruth Riddle DPM, Podiatry /Foot and Ankle Surgery Unavailable Omar Carmona MD Primary Care Provider +[phone] Jignesh Mathias MD Unavailable Adonay Haq MD Unavailable +1- Omar Carmona MD Unavailable +[phone] Jason Alvares MD Unavailable Jignesh Mathias MD Unavailable Ayad Lopez PhD LP Unavailable +[phone] Gavi NietoC Unavailable [phone] Encounter Details Date Type Department Care Team (Late st Contact Info) Description 11/30/[address] [facility] Heart [address] [phone] Jaimie Vernon RN Social History [...] Answer Date Recorded PHQ-2 Score 2 10/21/2022 [facility] Occupat ional Health - [...] Sex Assigned at Female 09/12/2020 12:05 PM SOUVENIR AND NOVELTY MAKER Legal Sex Female 3:26 AM SOUVENIR AND NOVELTY MAKER Gender Identity Female 09/12/2020 12:05 PM SOUVENIR AND NOVELTY MAKER Sexual Orientation Straight 12/19/2021 10 :44 AM CDT Occupation Industry Job Start Date Job End Date on disability for FMS Not on file Not on file Not on file disabled Not on file Not on file Not on file documented as of this encounter Plan of Treatment Upcoming Encounters Date Type Department Care Team (Late st Contact Info) Description 06/13/2025 6:00 PM SOUVENIR AND NOVELTY MAKER Ancillary Procedure [facility] Imaging Center CT Clinic [address] [phone] Omar Carmona MD [address] [place] [address] 027375 06/14/2025 4:00 PM SOUVENIR AND NOVELTY MAKER Office Visit [facility] Primary Care Clinic [address] [phone] Omar Carmona MD [address] [place] [address] [phone] 06/15/2025 12:45 PM SOUVENIR AND NOVELTY MAKER Therapy Visit [facility] Rehabilitation Services [address] [phone] Jason Alvares MD [address] [place] [address] 295 [place], [place] 3[address] Chaya Castillo, OTR [facility] 150 [place] [address] 06/19/2025 10:30 AM SOUVENIR AND NOVELTY MAKER Virtual Visit [facility] Primary Care [address] [phone] Omar Carmona MD [address] [place] [address] [phone] Gerson Santos, MORENO 06/26/2025 11:00 AM SOUVENIR AND NOVELTY MAKER Therapy Visit [facility] 150 [place] [phone] Jason Alvares MD [address] [place] [address] [phone] [facility] [address] [place] [address] 07/09/2025 12:45 PM SOUVENIR AND NOVELTY MAKER Therapy Visit [address] [phone] Jason Alvares MD [address] [place] [address] Chaya Castillo, OTR [facility] [address] [address] 07/18/2025 3:00 PM SOUVENIR AND NOVELTY MAKER Office Visit [facility] Heart Clinic [address] [phone] Adonay Chapman APRN [address] 652205 11/05/2025 12:[address] [facility] Lab [address] [place] [phone] 11/05/2025 1:45 PM CDT Office Visit [facility] Dermatology Clinic [address] [place] [phone] Gavi Nieto PA-C Dermatology [address] [place] [address] [phone] 11/20/2025 10:30 AM CDT Virtual Visit [address] [phone] Marquise Hanley MD 9 [place] [address] documented as of this encounter Goals Goal [...] documented as of this encounter Care Teams Floorman Relationship Specialty Start Date End Date Rio Jaquez MD [address] [place] [address] 4 [place] [address] PCP - General Family Practice 12/02/10 07/13/24 Omar Carmona MD [address] [place] [address] PCP - General Family Medicine 07/14/24 Barry Kilpatrick MD [address] [place] [address] [id number] [place] [address] Neurology 07/19/14 Michelle Henderson I RN Nurse Coordinator Neurology 07/19/14 Rio Jaquez MD 909 [facility] [address] 4 [place] [address] Family Practice 10/15/14 Jemima Jaramillo MD cow tester 11/20/14 Kelley Chin, TANIA [facility] 909 [place], [place] 228335 Nurse Coordinator Cardiology 11/04/15 Sydnee Saleem MD 420 [facility] 508 [place], [place] 0[address]255 Cardiology 11/04/15 Karlene Moya MD [address] [place] [address] 713125 Ophthalmology 06/24/17 Wilbert Quintero OD [address] [place] [address] 730785 Optometry 06/24/17 Rod Gauthier DPM [address] [place] [address] 109135 Tanning Salon Attendant Primary Podiatric Medicine 06/21/18 Jan Mahmood MD [address] [place] [address] 2A [place] [address] Gastroenterology 11/05/20 Brandt Quintana MD [address] [place] [address] Resident 11/05/20 Jan Mahmood MD [address] [place] [address] 2A [place] [address] Assigned Gastroenterology Provider 12/01/20 Rio Jaquez MD [address] [place] [address] 4 [place] [address] Assigned PCP 11/17/20 09/30/24 Dom Eason MD [address] [place] [address] 353 [place] [address] Internal Medicine 12/02/20 Jayla Plaza, RN Specialty Cash Posting Representative Hepatology 01/09/21 02/13/24 Jaimie Vernon, TANIA Specialty Cash Posting Representative Cardiology 10/28/21 Ruth Riddle DPM, Podiatry/Foot and Ankle Surgery 80395 [facility] 300 [place] [address] Assigned Musculoskeletal Provider 11/30/21 09/30/23 Marquise Hanley MD [address] [place] [address] Endocrinology, Diabetes, and Metabolism 03/05/22 Vlad Ramey MD [address] [place] [address] Cardiovascular Disease 05/07/22 Joesph Crowe MD [address] [place] [address] Surgery 05/07/22 Luis Arrington MD [address] [place] [address] Assigned Neuroscience Provider 05/16/22 05/14/23 Michelle Padilla, RN Specialty Cash Posting Representative Cardiology 07/03/22 Vlad Ramey MD 909 [place] [address] Assigned Heart and Vascular Provider 07/25/22 05/28/23 Marquise Hanley MD [address] [place] [address] Assigned Endocrinology Provider 08/15/22 Dom Eason MD 717 [facility] 353 [place] [address] Assigned Nephrology Provider 11/28/22 02/19/23 Wagner Oliver MD 6401 [place] [address] Critical Care 12/15/22 Laura Epperson, VOIP NETWORK TECHNICIAN 717 [facility] 1932 [place] [address] Assigned Nephrology Provider 02/20/23 08/30/24 Thom Taveras MD [address] [facility], [address] [place] [address] Assigned Cancer Care Provider 02/06/23 08/20/23 Joesph Crowe MD [address] [place] [address] Surgery 03/17/23 Joesph Crowe MD [address] [place] [address] 77279 Assigned Surgical Provider 04/03/23 09/30/24 Adonay Haq MD [address] [place] [address] Internal Medicine 06/14/23October, Denilson Jackson MD [address] [facility] [address] [place], [place] 861825 Assigned Heart and Vascular Provider 05/29/23 11/28/24 Jason Alvares MD [address] [place] [address] 125245 Assigned Neuroscience Provider 05/15/23 11/28/24 Ruth Riddle DPM, Podiatry/Foot and Ankle Surgery [address] [facility] 300 [place], [place] 488637 Assigned Musculoskeletal Provider 10/22/23 Jignesh Mathias MD [address] [place] [address] Gastroenterology 09/25/24 Adonay Haq MD [address] [place] [address] Assigned PCP 10/01/24 12/28/24 Omar Carmona MD [address] [place] [address] 98135 Assigned PCP 12/29/24 Jason Alvares MD 420 [facility] 295 [place], [place] 931085 Assigned Neuroscience Provider 12/29/24 Jignesh Mathias MD [address] [place] [address] [phone] Assigned Surgical Provider 12/29/24 Ayad Lopez, PhD LP [address] [place] [address] 672175 Assigned Behavioral Health Provider 02/28/25 Gavi Nieto, PA-C [address] [place] [address] Physician Laboratory Geneticist Dermatology 03/19/25 documented as of this encounter
--- OUTSIDE RECORDS SUMMARY | 2025-06-08 22:48 | XMS_ITS | Encounter Summary ---
Author Organization [place] Address [address] [place] [address] Care Team Providers Care Piece Marker Small Arms Name Role Phone Barry Kilpatrick MD Unavailable Michelle Henderson RN Unavailable [phone] Rio Jaquez MD Unavailable +[phone] Jemima Jaramillo MD Unavailable Unavai Kelley Bautista RN Unavailable +[phone] Sydnee Saleem MD Unavailable +[phone] Karlene Moya MD Unavailable +[phone] Wilbert Quintero OD Unavailable +[phone] Rod Gauthier DPM Unavailable +[phone] Jan Mahmood MD Unavailable +[phone] Brandt Quintana MD Unavailable Jan Mahmood MD Unavailable +[phone] Dom Eason MD Unavailable +[phone] Jaimie Vernon RN Unavailable Unavailable Marquise Hanley MD Unavailable +[phone] Vlad Ramey MD Unavailable +[phone] Joesph Crowe MD Unavailable Michelle Padilla RN Unavailable Unavaila ble Marquise Hanley MD Unavailable +[phone] Wagner Oliver MD Unavailable +[phone] Joesph Crowe MD Unavailable Adonay Haq MD Unavailable +[phone] Ruth Riddle DPM, Podiatry /Foot and Ankle Surgery Unavailable Omar Carmona MD Primary Care Provider [phone] Jignesh Mathias MD Unavailable Omar Carmona MD Unavailable +[phone] Jason Alvares MD Unavailable Jignesh Mathias MD Unavailable Ayad Lopez PhD Unavailable +[phone] Gavi Nieto PA-C Unavailable +[phone] Encounter Details Date Type Department Care Team (Late st Contact Info) Description 04/26/2025 [facility] [address] [address] Jignesh Mathias MD [address] [place] [address] Social History Tobacco Use Types Packs/Day [...] Answer Date Recorded PHQ-2 Score 2 04/11/2025 [facility] of Occupat ional Health - Occupational Stress [...] in an abandoned building, in an overnight alf, or couch-surfing.) Yes 04/30/2025 Are you worried [...] Sex Assigned at Female 09/12/2020 12:05 PM REPAIRER RESISTANCE WELDING MACHINES Legal Sex Female 3:26 AM REPAIRER RESISTANCE WELDING MACHINES Gender Identity Female 09/12/2020 12:05 PM REPAIRER RESISTANCE WELDING MACHINES Sexual Orientation Straight 12/19/2021 10 :44 AM CDT Occupation Industry Job Start Date Job End Date on disability for FMS Not on file Not on file Not on file disabled Not on file Not on file Not on file documented as of this encounter Plan of Treatment Upcoming Encounters Date Type Department Care Team (Late st Contact Info) Description 06/13/2025 6:00 PM REPAIRER RESISTANCE WELDING MACHINES Ancillary Procedure [facility] CT Clinic [address] [phone] Omar Carmona MD [address] [place] [address] 828255 06/14/2025 4:00 PM REPAIRER RESISTANCE WELDING MACHINES Office Visit [facility] Care [address] [phone] Omar Carmona MD [address] [place] [address] 06/15/2025 12:45 PM REPAIRER RESISTANCE WELDING MACHINES Therapy Visit [facility] Rehabilitation Services [address] [phone] Jason Alvares MD [address] [place] [address] 255595 Chaya Castillo, [facility] [address] [place] [address] 06/19/2025 10:30 AM REPAIRER RESISTANCE WELDING MACHINES Virtual Visit [facility] Primary Care [address] [place] [phone] Omar Carmona MD [address] [place] [address] 034505 Gerson Santos, FARZAD 06/26/2025 11:00 AM REPAIRER RESISTANCE WELDING MACHINES Therapy Visit [facility] [address] [place] [phone] Jason Alvares MD [address] [place] [address] 758095 Chaya Castillo, OTR [address] [address] 07/09/2025 12:45 PM REPAIRER RESISTANCE WELDING MACHINES Therapy Visit [address] [phone] Jason Alvares MD [address] [place] [address] 858165 Chaya Castillo OTMari [address] [address] 07/18/2025 3:00 PM REPAIRER RESISTANCE WELDING MACHINES Office Visit [facility] Heart Clinic [address] [phone] Adonay Chapman APRN [facility] 500 [place], [place] 106605 11/05/2025 12:30 PM CDT Lab [facility] Lab [address] 1st [place] [phone] 11/05/2025 1:45 PM CDT Office Visit [facility] Dermatology Clinic [address] 3rd [place] [phone] Gavi Nieto PA-C Dermatology [address] [place] [address] 11/20/2025 10:30 AM CDT Virtual Visit [address] [address] Marquise Hanley MD [address] [place] [address] documented as of this encounter Goals Goal [...] documented as of this encounter Care Teams Piece Marker Small Arms Relationship Specialty Start Date End Date Omar Carmona MD [address] [place] [address] 31365 PCP - General Family Medicine 07/14/24 Barry Kilpatrick MD [address] [place] [address] TI7295AS [place] [address] Neurology 07/19/14 Michelle Henderson I, RN Nurse Coordinator Neurology 07/19/14 Rio Jaquez MD [address] [place] [address] FL 4 [place] [address] Family Practice 10/15/14 Jemima Jaramillo MD 909 [facility] 4 [place] [address] small business director 11/20/14 Kelley Chin RN [facility] 909 [place] [address] Nurse Coordinator Cardiology 11/04/15 Sydnee Saleem MD [address] [place] [address] 508 [place], [place] 540435 Cardiology 11/04/15 Karlene Moya MD [address] [place] [address] 475755 Ophthalmology 06/24/17 Wilbert Quintero OD [address] [place] [address] 996295 Optometry 06/24/17 Rod Gauthier DPM 9 [place], [place] 110805 Lay Up Operator Primary Podiatric Medicine 06/21/18 Jan Mahmood MD [address] [place] [address] 2[address] [place] [address] Gastroenterology 11/05/20 Brandt Quintana MD [address] [place] [address] Resident 11/05/20 Jan Mahmood MD [address] [place] [address] Assigned Gastroenterology Provider 12/01/20 Dom Eason MD [address] [place] [address] Internal Medicine 12/02/20 Jaimie Vernon, RN Specialty Public Speaking Coach Cardiology 10/28/21 Marquise Hanley MD [address] [place] [address] Endocrinology, Diabetes, and Metabolism 03/05/22 Vlad Ramey MD [address] [place] [address]33 Cardiovascular Disease 05/07/22 Joesph Crowe MD [address] [place] [address] 82382 Surgery 05/07/22 Michelle Padilla RN Specialty Public Speaking Coach Cardiology 07/03/22 Marquise Hanley MD [address] [place] [address] 10052 Assigned Endocrinology Provider 08/15/22 Wagner Oliver MD [address] [place] [address] Critical Care 12/15/22 Joesph Crowe MD [address] [place] [address] 76[address] Surgery 03/17/23 Adonay Haq MD [address] [place] [address] 76[address] Internal Medicine 06/14/23 Ruth Riddle DPM, Podiatry/Foot and Ankle Surgery [address] [place]IG[place]Z [address] [place] [address] Assigned Musculoskeletal Provider 10/22/23 Jignesh Mathias MD [address] [place] [address] 152525 Gastroenterology 09/25/24 Omar Carmona MD [address] [place] [address] 029035 Assigned PCP 12/29/24 Jason Alvares MD [address] [place] [address] 865685 Assigned Neuroscience Provider 12/29/24 Jignesh Mathias MD [address] [place] [address] 887555 Assigned Surgical Provider 12/29/24 Ayad Lopez, PhD LP [address] [place] [address] 798135 Assigned Behavioral Health Provider 02/28/25 Gavi Nieto PANavinC [address] [place] [address] 017745 Physician Mounter Clarinets Dermatology 03/19/25 documented as of this encounter
--- OUTSIDE RECORDS SUMMARY | 2025-06-08 22:48 | XMS_ITS | Encounter Summary ---
Author Organization [place] Address [address] [place] [address] Care Team Providers Care Hydraulic Mechanic Name Role Phone Rio Jaquez MD Primary Care Provider + [phone] Barry Kilpatrick MD Unavailable Michelle Henderson RN Unavailable [phone] Rio Jaquez MD Unavailable +[phone] Jemima Jaramillo MD Unavailable Unavai Kelley Bautista RN Unavailable [phone] Sydnee Saleem MD Unavailable +[phone] Karlene Moya MD Unavailable +[phone] Wilbert Quintero OD Unavailable +[phone] Rod Gauthier DPM Unavailable +[phone] Nallely Hogue RN Unavailable Unavailable Jan Mahmood MD Unavailable +[phone] Brandt Qiuntana MD Unavailable +[phone] Jan Mahmood MD Unavailable +[phone] Rio Jaquez MD Unavailable +[phone] Dom Eason MD Unavailable +[phone] Jayla Plaza RN Unavailable +[phone] Jaimie [...] Unavailable +[phone] Dom Eason MD Unavailable +[phone] Wagner Oliver MD Unavailable +[phone] Laura Epperson NP Unavailable +[phone] Thom Taveras MD Unavailable +[phone] Joesph Crowe MD Unavailable +[phone] Joesph Crowe MD Unavailable +[phone] Adonay Haq MD Unavailable +[phone] Denilson Srinivasan MD Unavailable + [phone] Jason Alvares MD Unavailable Ruth Riddle DPM, Podiatry /Foot and Ankle Surgery Unavailable Omar Carmona MD Primary Care Provider +[phone] Jignesh Mathias MD Unavailable Adonay Haq MD Unavailable +1- Omar Carmona MD Unavailable +[phone] Jason Alvares MD Unavailable Jignesh Mathias MD Unavailable Ayad Lopez PhD LP Unavailable [phone] Gavi Nieto PA-C Unavailable +[phone] Encounter Details Date Type Department Care Team (Late st Contact Info) Description 09/18/2022 My[facility] Medical Advice [facility] Hepatology Clinic [address] [phone] Jayla Plaza, RN Social History [...] any clubs o r organizations such as advent groups, unions, fraternal or athletic groups, or [...] Answer Date Recorded PHQ-2 Score 2 08/12/2022 [facility] of Occupat ional Health - [...] Sex Assigned at Female 09/12/2020 12:05 [address] TECHNICIAN Legal Sex Female 3:26 [address] ROADWAY TECHNICIAN Gender Identity Female 09/12/2020 12:[address] TECHNICIAN Sexual Orientation Straight 12/19/2021 10 :44 [...] Coronavirus/COVID-19? No / Unsure 09/17/2022 10:[address] TECHNICIAN documented as of this encounter Plan of Treatment Upcoming Encounters Date Type Department Care Team (Late st Contact Info) Description 06/13/2025 6:[address] TECHNICIAN Ancillary Procedure [facility] Imaging Center CT Clinic [address]st [place] [phone] Omar Carmona MD [address] [place] [address] 228875 06/14/2025 4:[address] TECHNICIAN Office Visit [facility] Primary Care Clinic [address] 4th [place] [phone] Omar Carmona MD [address] [place] [address] 089255 06/15/2025 12:45 [address]ADWAY TECHNICIAN Therapy Visit [facility] Rehabilitation Services [address] [phone] Jason Alvares MD [address] [place] [address] 554365 Chaya Castillo, [facility] 150 [place] [address] 06/19/2025 10:[address]ADWAY TECHNICIAN Virtual Visit [facility] Primary Care Clinic [address] [place] [address] 4th [place] [phone] Omar Carmona MD [address] [place] [address] 516425 Gerson Santos, [facility] 06/26/2025 11:[address]WAY TECHNICIAN Therapy [facility] [address] [place] [phone] Jason Alvares MD [address] [place] [address] 722965 Chaya Castillo, OTR [facility] 150 [place] [address] 07/09/2025 12:[address] TECHNICIAN Therapy [facility] [address] [place] [phone] Jason Alvares MD [address] [place] [address] 355655 Chaya Castillo, OTR [facility] 150 [place] [address] 07/18/2025 3:[address] TECHNICIAN Office Visit [facility] Heart Clinic [address] [phone] Adonay Chapman APRN [facility] 500 [place], [place] 464575 11/05/2025 12:30 PM CDT Lab [facility] Lab [address] [phone] 11/05/2025 1:45 PM CDT Office Visit [facility] Dermatology Clinic [place] 909 [facility] 3rd [place] [phone] Gavi Nieto PA-C Dermatology [address] [place] [address] 11/20/2025 10:30 AM CDT Virtual Visit [address] [address] Marquise Hanley MD [address] [place] [address] documented as of this encounter Goals Goal [...] documented as of this encounter Care Teams Hydraulic Mechanic Relationship Specialty Start Date End Date Rio Jaquez MD [address] [place] [address] [address] 4 [place] [address] PCP - General Family Practice 12/02/10 07/13/24 Omar Carmona MD [address] [place] [address]99 PCP - General Family Medicine 07/14/24 Barry Kilpatrick MD [address] [place] [address] [id number] [place], [place] 613945 Neurology 07/19/14 Michelle Henderson I, RN Nurse Coordinator Neurology 07/19/14 Rio Jaquez MD [address] [place] [address] FL 4 [place] [address] Family Practice 10/15/14 Jemima Jaramillo MD wet process assistant head miller 11/20/14 Kelley Chin, TANIA [address] [address] Nurse Coordinator Cardiology 11/04/15 Sydnee Saleem MD [address] [place] [address] 508 [place] [address] Cardiology 11/04/15 Karlene Moya MD [address] [place] [address] 390855 Ophthalmology 06/24/17 Wilbert Quintero, OD [address] [place] [address] 137835 Optometry 06/24/17 Rod Gauthier DPM [address] [place] [address] 182935 House Painter Primary Podiatric Medicine 06/21/18 Nallely Hogue, RN Registered Nurse 02/20/19 11/23/22 Jan Mahmood MD [address] [facility] 2A [place], [place] 484735 Gastroenterology 11/05/20 Brandt Quintana MD 1414 [place] [address] Resident 11/05/20 Jan Mahmood MD [facility] [place] [address] Assigned Gastroenterology Provider 12/01/20 Rio Jaquez MD [address] [facility] 4 [place], [place] 135965 Assigned PCP 11/17/20 09/30/24 Dom Eason MD 717 [facility] 353 [place] [address] Internal Medicine 12/02/20 Jayla Plaza, RN Specialty Truss Maker Hepatology 01/09/21 02/13/24 Jaimie Vernon, RN Specialty Truss Maker Cardiology 10/28/21 Ruth Riddle DPM, Podiatry/Foot and Ankle Surgery [address] [place] [address] [address] Assigned Musculoskeletal Provider 11/30/21 09/30/23 Marquise Hanley MD [address] [place] [address] [phone] Endocrinology, Diabetes, and Metabolism 03/05/22 Vlad Ramey MD [address] [place] [address] 182875 Cardiovascular Disease 05/07/22 Joesph Crowe MD [address] [place] [address] 30993 Surgery 05/07/22 Luis Arrington MD [address] [place] [address] 14276 Assigned Neuroscience Provider 05/16/22 05/14/23 Michelle Padilla RN Specialty Truss Maker Cardiology 07/03/22 Vlad Ramey MD [address] [place] [address] 977375 Assigned Heart and Vascular Provider 07/25/22 05/28/23 Marquise Hanley MD [address] [place] [address] [phone] Assigned Endocrinology Provider 08/15/22 Dom Eason MD 717 [facility] 353 [place], [place] 767214 Assigned Nephrology Provider 11/28/22 02/19/23 Wagner Oliver MD [address] [place] [address] Critical Care 12/15/22 Laura Epperson NP 717 [facility] [address] [place] [address] Assigned Nephrology Provider 02/20/23 08/30/24 Thom Taveras MD [address] [facility], R105 [place], [place] 843724 Assigned Cancer Care Provider 02/06/23 08/20/23 Joesph Crowe MD [address] [place] [address] MD Surgery 03/17/23 Joesph Crowe MD [address] [place] [address]774 Assigned Surgical Provider 04/03/23 09/30/24 Adonay Haq MD [address] [place] [address] Internal Medicine 06/14/23OctoberDenilson MD 6405 [facility] CLEO Black [facility]00 [place] [address] Assigned Heart and Vascular Provider 05/29/23 11/28/24 Jason Alvares MD [address] [place] [address] Assigned Neuroscience Provider 05/15/23 11/28/24 Ruth Riddle DPM, Podiatry/Foot and Ankle Surgery 11698 [facility] 300 [place] [address] Assigned Musculoskeletal Provider 10/22/23 Jignesh Mathias MD [address] [place] [address] Gastroenterology 09/25/24 Adonay Haq MD [address] [place] [address] 257565 Assigned PCP 10/01/24 12/28/24 Omar Carmona MD [address] [place] [address] 379845 Assigned PCP 12/29/24 Jason Alvares MD [address] [place] [address] Assigned Neuroscience Provider 12/29/24 Jignesh Mathias MD [address] [place] [address] Assigned Surgical Provider 12/29/24 Ayad Lopez, PhD LP [address] [place] [address] Assigned Behavioral Health Provider 02/28/25 Gavi Nieto, PA-C [address] [place] [address] Physician Hoisting Machine Operator Dermatology 03/19/25 documented as of this encounter
--- OUTSIDE RECORDS SUMMARY | 2025-06-08 22:48 | XMS_ITS | Encounter Summary ---
Author Organization [facility] Address [address] [place] [address] Care Team Providers Care In Flight Refueling System Repairer Name Role Phone Rio Jaquez MD Primary Care Provider + [phone] Barry Kilpatrick MD Unavailable Michelle Henderson RN Unavailable +[phone] Rio Jaquez MD Unavailable +[phone] Jemima Jaramillo MD Unavailable Unavai Kelley Bautista RN Unavailable +[phone] Sydnee Saleem MD Unavailable +[phone] Karlene Moya MD Unavailable +[phone] Wilbert Quintero OD Unavailable +[phone] Rod aGuthier DPM Unavailable +[phone] Nallely Hogue RN Unavailable Unavailable Jan Mahmood MD Unavailable +[phone] Brandt Quitnana MD Unavailable +[phone] Jan Mahmood MD Unavailable +[phone] Rio Jaquez MD Unavailable +[phone] Dom Eason MD Unavailable +[phone] Jayla Plaza RN Unavailable +[phone] Jaimie [...] Unavailable +[phone] Dom Eason MD Unavailable +[phone] Wagner Oliver MD Unavailable +[phone] Laura Epperson NP Unavailable +[phone] Thom Taveras MD Unavailable +[phone] Joesph Crowe MD Unavailable +[phone] Joesph Crowe MD Unavailable +[phone] Adonay Haq MD Unavailable +[phone] Denilson Srinivasan MD Unavailable + [phone] Jason Alvares MD Unavailable Ruth Riddle DPM, Podiatry /Foot and Ankle Surgery Unavailable Omar Carmona MD Primary Care Provider +[phone] Jignesh Mathias MD Unavailable Adonay Haq MD Unavailable +1- Omra Carmona MD Unavailable +[phone] Jason Alvares MD Unavailable Jignesh Mathias MD Unavailable Ayad Lopez PhD LP Unavailable +[phone] Gavi Nieto PA-C Unavailable +[phone] Reason for Visit * Reason Onset Date Comments Clinic Care Coordination - Follow-up 10/12/2022 Encounter Details Date Type Department Care Team (Latest Contact Info) Description 10/12/2022 MyC Medical Advice [address] [address] October, Denilson Jackson MD [address] [facility] [address] [place] [address] Clinic Care Coordination - Follow-up [...] than three times a week 08/27/2021 Attends Taoist Services Not on file 08/27 Do you [...] Answer Date Recorded PHQ-2 Score 2 08/12/2022 [employer] [facility] Occupat [facility] - Occupational Stress Questionnaire Answer Date [...] in a custodial (including now)? No 08/27/2021 Comments No Sex and Gender Information Value Date Recorded Sex Assigned at Female 09/12/2020 12:05 PM I&C TECH Legal Sex Female 3:26 AM I&C TECH Gender Identity Female 09/12/2020 12:05 PM I&C TECH Sexual Orientation Straight 12/19/2021 10 :44 [...] Coronavirus/COVID-19? No / Unsure 10/06/2022 12:20 PM I&C TECH documented as of this encounter Plan of Treatment Upcoming Encounters Date Type Department Care Team (Late st Contact Info) Description 06/13/2025 6:00 PM I&C TECH Ancillary Procedure [facility] Clinic [address] [place] [phone] Omar Carmona MD [address] [place] [address] [phone] 06/14/2025 4:00 PM I&C TECH Office Visit [facility] Primary Care Clinic [address]th [place] [phone] Omar Carmona MD [address] [place] [address] [phone] 06/15/2025 12:45 PM I&C TECH Therapy Visit [facility] Rehabilitation Services [address] [phone] Jason Alvares MD 420 [facility] [address] [place], [place] [address] Chaya Castillo, OTR [facility] 150 [place] [address] 06/19/2025 10:30 AM I&C TECH Virtual Visit [facility] [address] [place] [address] 4th [place] [phone] Omar Carmona MD [address] [place] [address] 465195 Gerson Santos, [facility] 06/26/2025 11:00 AM I&C TECH Therapy Visit [address] [phone] Jason Alvares MD [address] [place] [address] 838285 Chaya Castillo OTR [facility] 150 [place] [address] 07/09/2025 12:45 PM I&C TECH Therapy Visit [facility] 150 [place] [phone] Jason Alvares MD [address] [place] [address] [phone] Chaya Castillo, OTR [facility] 150 [place] [address] 07/18/2025 3:00 PM I&C TECH Office Visit [facility] Heart Clinic [address] [phone] Adonay Chapman APRN [address] 566475 11/05/2025 12:30 PM CDT Lab [facility] [place] [address] [place] [address] 1st [place] [phone] 11/05/2025 1:45 PM CDT Office Visit [facility] Dermatology Clinic [address] [place] [phone] Gavi Nieto PA-C Dermatology [address] [place] [address] 11/20/2025 10:30 AM CDT Virtual Visit [address] [place] [address] Marquise Hanley MD [address] [place] [address] documented as of this encounter Goals Goal [...] documented as of this encounter Care Teams In Flight Refueling System Repairer Relationship Specialty Start Date End Date Rio Jaquez MD [address] [place] [address] [address] [place] [address] PCP - General Family Practice 12/02/10 07/13/24 Omar Carmona MD [address] [place] [address] PCP - General Family Medicine 07/14/24 Barry Kilpatrick MD [address] [place] [address] [id number] [place] 707925 Neurology 07/19/14 Michelle Henderson I, RN Nurse Coordinator Neurology 07/19/14 Rio Jaquez MD [address] [place] [address] [place] [address] [place], [place] [phone] Family Practice 10/15/14 Jemima Jaramillo MD keying machine operator 11/20/14 Kelley Chin RN [address] [phone] Nurse Coordinator Cardiology 11/04/15 Sydnee Saleem MD 420 [facility] 508 [place], [place] 810845 Cardiology 11/04/15 Karlene Moya MD 6 [place], [place] 117095 Ophthalmology 06/24/17 Wilbert Quintero, OD [address] [place] [address] 567215 Optometry 06/24/17 Rod Gauthier DPM [address] [place] [address] [phone] [facility] Primary Podiatric Medicine 06/21/18 Nallely Hogue, RN Registered Nurse 02/20/19 11/23/22 Jan Mahmood MD 516 [facility] 2A [place] [address] Gastroenterology 11/05/20 Brandt Quintana MD 1414 [place] [address] Resident 11/05/20 Jan Mahmood MD 516 [facility] 2A [place] [address] Assigned Gastroenterology Provider 12/01/20 Rio Jaquez MD 909 [facility] 4 [place] [address] Assigned PCP 11/17/20 09/30/24 Dom Eason MD 717 [facility] 353 [place] [address] Internal Medicine 12/02/20 Jayla Plaza, RN Specialty Traffic Signal Supervisor Maintenance Hepatology 01/09/21 02/13/24 Jaimie Vernon, RN Specialty Traffic Signal Supervisor Maintenance Cardiology 10/28/21 Ruth Riddle, DPM, Podiatry/Foot and Ankle Surgery [address] [address] Assigned Musculoskeletal Provider 11/30/21 09/30/23 Marquise Hanley MD 909 [place] [address] Endocrinology, Diabetes, and Metabolism 03/05/22 Vlad Ramey MD [address] [place] [address] Cardiovascular Disease 05/07/22 Joesph Crowe MD [address] [place] [address] Surgery 05/07/22 Luis Arrington MD [address] [place] [address] Assigned Neuroscience Provider 05/16/22 05/14/23 Michelle Padilla RN Specialty Traffic Signal Supervisor Maintenance Cardiology 07/03/22 Vlad Ramey MD [address] [place] [address] Assigned Heart and Vascular Provider 07/25/22 05/28/23 Marquise Hanley MD [address] [place] [address] Assigned Endocrinology Provider 08/15/22 Dom Eason MD 7 [facility] 353 [place] [address] Assigned Nephrology Provider 11/28/22 02/19/23 Wagner Oliver MD [address] [place] [address] Critical Care 12/15/22 Laura Epperson, LULU 717 [facility] [address] [place] [address] Assigned Nephrology Provider 02/20/23 08/30/24 Thom Taveras MD [facility] [address] [place] [address] Assigned Cancer Care Provider 02/06/23 08/20/23 Joesph Crowe MD [address] [place] [address] MD Surgery 03/17/23 Joesph Crowe MD [address] [place] [address] [phone] Assigned Surgical Provider 04/03/23 09/30/24 Adonay Haq MD [address] [place] [address] 211645 Internal Medicine 06/14/23October, Denilson Jackson MD [address] [facility] [address] [place], [place] 7175[address] Assigned Heart and Vascular Provider 05/29/23 11/28/24 Jason Alvares MD [address] [place] [address] 295 [place], [place] 110925 Assigned Neuroscience Provider 05/15/23 11/28/24 Ruth Riddle DPM, Podiatry/Foot and Ankle Surgery [address] [place], [place] [address] Assigned Musculoskeletal Provider 10/22/23 Jignesh Mathias MD [address] [place] [address] 113515 Gastroenterology 09/25/24 Adonay Haq MD [address] [place] [address] Assigned PCP 10/01/24 12/28/24 Omar Carmona MD [address] [place] [address] Assigned PCP 12/29/24 Jason Alvares MD [address] [place] [address] Assigned Neuroscience Provider 12/29/24 Jignesh Mathias MD [address] [place] [address] [phone] Assigned Surgical Provider 12/29/24 Ayad Lopez, PhD LP [address] [place] [address] 410825 Assigned Behavioral Health Provider 02/28/25 Gavi Nieto, PA-C [address] [place] [address] [phone] Physician Bread Oven Operator Dermatology 03/19/25 documented as of this encounter
--- OUTSIDE RECORDS SUMMARY | 2025-06-08 22:48 | XMS_ITS | Encounter Summary ---
Author Organization [facility] Address [address] [place] [address] Care Team Providers Care Senior Painter Name Role Phone Barry Kilpatrick MD Unavailable Michelle Henderson RN Unavailable [phone] Rio Jaquez MD Unavailable +[phone] Jemima Jaramillo MD Unavailable Unavai Kelley Bautista RN Unavailable [phone] Sydnee Saleem MD Unavailable +[phone] Karlene Moya MD Unavailable +[phone] Wilbert Quintero OD Unavailable +[phone] Rod Gauthier DPM Unavailable [phone] Jan Mahmood MD Unavailable +[phone] Brandt Quintana MD Unavailable Jan Mahmood MD Unavailable +[phone] Dom Eason MD Unavailable +[phone] Jaimie Vernon RN Unavailable Unavailable Marquise Hanley MD Unavailable +[phone] Vlad Ramey MD Unavailable +[phone] Joesph Crowe MD Unavailable Michelle Padilla RN Unavailable Unavaila ble Marquise Hanley MD Unavailable +[phone] Wagner Oliver MD Unavailable + [phone] Joesph Crowe MD Unavailable +[phone] Adonay Haq MD Unavailable [phone] Ruth RiddleM, Podiatry /Foot and Ankle Surgery Unavailable Omar Carmona MD Primary Care Provider [phone] Jignesh Mathias MD Unavailable Omar Carmona MD Unavailable +[phone] Jason Alvares MD Unavailable Jignesh Mathias MD Unavailable Ayad Lopez PhD LP Unavailable +[phone] Gavi Nieto PA-C Unavailable +[phone] Encounter Details Date Type Department Care Team (Latest Contact Info) Description 05/03/2025 Travel Social History Tobacco Use Types Packs/Day [...] Answer Date Recorded PHQ-2 Score 2 05/03/2025 [facility] [place] of Occupat ional Health - Occupational Stress [...] Sex Assigned at Female 09/12/2020 12:05 PM STOCK DEALER Legal Sex Female 3:26 AM STOCK DEALER Gender Identity Female 09/12/2020 12:05 PM STOCK DEALER Sexual Orientation Straight 12/19/2021 10 :44 AM CDT Occupation Industry Job Start Date Job End Date on disability for FMS Not on file Not on file Not on file disabled Not on file Not on file Not on file documented as of this encounter Plan of Treatment Upcoming Encounters Date Type Department Care Team (Late st Contact Info) Description 06/13/2025 6:00 PM STOCK DEALER Ancillary Procedure [facility] Imaging Center CT Clinic [address] [phone] Omar Carmona MD [address] [place] [address] [phone] 06/14/2025 4:00 PM STOCK DEALER Office Visit [facility] Primary Care Clinic [address] [address] Omar Carmona MD [address] [place] [address] [phone] 06/15/2025 12:45 PM STOCK DEALER Therapy Visit [facility] Rehabilitation Services [address] [phone] Jason Alvares MD 420 [facility] 295 [place], [place] [phone] Chaya Castillo, OTR [facility] 150 [place] [address] 06/19/2025 10:30 AM STOCK DEALER Virtual Visit [facility] Primary Care [address] [address] Omar Carmona MD [address] [place] [address] 817415 Gerson Santos RPH 06/26/2025 11:00 AM STOCK DEALER Therapy Visit [facility] [address] [facility] [place] [address] Jason Alvares MD [address] [place] [address] Ch[facility] Castillo, [facility]TR [facility] 150 [place] [address] 07/09/2025 12:45 PM STOCK DEALER Therapy Visit [facility] 150 [place] [phone] Jason Alvares MD [address] [place] [address] Chaya Castillo [facility]TR [facility] 150 [place] [address] 07/18/2025 3:00 PM STOCK DEALER Office Visit [facility] Heart [address] [phone] Adonay Chapman APRN [address] [address] 11/05/2025 12:30 PM CDT Lab [facility] Lab [address] [place] [address] 11/05/2025 1:45 PM CDT Office Visit [facility] Dermatology Clinic [address] 3rd [place] [phone] Gavi Nieto PA-C Dermatology [address] [place] [address] 11/20/2025 10:30 AM CDT Virtual Visit M [address] [address] Marquise Hanley MD [address] [place] [address] documented as of this encounter Goals Goal [...] as of this encounter Care Teams Senior Painter Relationship Specialty Start Date End Date Omar Carmona MD [address] [place] [address] PCP - General Family Medicine 07/14/24 Barry Kilpatrick MD [address] [place] [address] [id number] [place] [address] Neurology 07/19/14 Michelle Henderson RN Nurse Coordinator Neurology 07/19/14 Rio Jaquez MD [address] [place] [address] Family Practice 10/15/14 Jemima Jaramillo MD [address] [place] [address] tawer 11/20/14 Kelley Chin, TANIA [address] [address] Nurse Coordinator Cardiology 11/04/15 Sydnee Saleem MD 420 [facility] [address] [place] [address] Cardiology 11/04/15 Karlene Moya MD 516 [place], [place] 280035 Ophthalmology 06/24/17 Wilbert Quintero OD 909 [place], [place] 765[address] Optometry 06/24/17 Rod Gauthier DPM 909 [place], [place] 154805 Pain Management Specialist Primary Podiatric Medicine 06/21/18 Jan Mahmood MD [address] [place] [address] 2[address] [place], [place] 0[address] Gastroenterology 11/05/20 Brandt Quintana MD [address] [place] [address] Resident 11/05/20 Jan Mahmood MD [address] [address] Assigned Gastroenterology Provider 12/01/20 Dom Eason MD 717 [facility] 353 [place] [address] Internal Medicine 12/02/20 Jaimie Vernon, RN Specialty Dredge Boat Engineer Cardiology 10/28/21 Marquise Hanley MD [address] [place] [address] Endocrinology, Diabetes, and Metabolism 03/05/22 Vlad Ramey MD [address] [place] [address] Cardiovascular Disease 05/07/22 Joesph Crowe MD [address] [place] [address] Surgery 05/07/22 Michelle Padilla RN Specialty Dredge Boat Engineer Cardiology 07/03/22 Marquise Hanley MD [address] [place] [address] Assigned Endocrinology Provider 08/15/22 Wagner Oliver MD [address] [place] [address] Critical Care 12/15/22 Joesph Crowe MD [address] [place] [address] Surgery 03/17/23 Adonay Haq MD [address] [place] [address] Internal Medicine 06/14/23 Ruth Riddle DPM, Podiatry/Foot and Ankle Surgery [address] [place] 362457 Assigned Musculoskeletal Provider 10/22/23 Jignesh Mathias MD [address] [place] [address] 155195 Gastroenterology 09/25/24 Omar Carmona MD [address] [place] [address] 445425 Assigned PCP 12/29/24 Jason Alvares MD [address] [place] [address] [phone] Assigned Neuroscience Provider 12/29/24 Jignesh Mathias MD [address] [place] [address] 466075 Assigned Surgical Provider 12/29/24 Ayad Lopez, PhD LP [address] [place] [address] 356505 Assigned Behavioral Health Provider 02/28/25 Gavi Nieto, PA-C [address] [place] [address] 365485 Physician Buckle Coverer Dermatology 03/19/25 documented as of this encounter
--- OUTSIDE RECORDS SUMMARY | 2025-06-08 22:48 | XMS_ITS | Encounter Summary ---
Author Organization [facility] Address [address] [place] [address] 11546 Care Team Providers Care Automotive Refinish Technician Name Role Phone Rio Jaquez MD Primary Care Provider + [phone] Barry Kilpatrick MD Unavailable Michelle Henderson RN Unavailable [phone] Rio Jaquez MD Unavailable +[phone] Jemima Jaramillo MD Unavailable Unavai Kelley Bautista RN Unavailable +[phone] Sydnee Saleem MD Unavailable +[phone] Karlene Moya MD Unavailable +[phone] Wilbert Quintero OD Unavailable +[phone] Rod Gauthier DPM Unavailable +[phone] Nallely Hogue RN Unavailable Unavailable Jan Mahmood MD Unavailable +[phone] Brandt Quintana MD Unavailable +[phone] Jan Mahmood MD Unavailable +[phone] Rio Jaquez MD Unavailable +[phone] Dom Eason MD Unavailable +[phone] Jayla Plaza RN Unavailable +[phone] Jaimie [...] Unavailable +[phone] Dom Eason MD Unavailable +[phone] Wagner Oliver MD Unavailable +[phone] Laura Epperson NP Unavailable +[phone] Thom Taveras MD Unavailable +[phone] Joesph Crowe MD Unavailable +[phone] Joesph Crowe MD Unavailable +[phone] Adonay Haq MD Unavailable +[phone] Denilson Srinivasan MD Unavailable + [phone] Jason Alvares MD Unavailable Ruth Riddle DPM, Podiatry /Foot and Ankle Surgery Unavailable Omar Carmona MD Primary Care Provider +[phone] Jignesh Mathias MD Unavailable Adonay Haq MD Unavailable +1- Omar Carmona MD Unavailable +[phone] Jason Alvares MD Unavailable Jignesh Mathias MD Unavailable Ayad Lopez PhD LP Unavailable +[phone] Gavi Nieto PA-C Unavailable +[phone] Encounter Details Date Type Department Care Team (Late st Contact Info) Description 10/22/2022 MyC Medical Advice [facility] Heart [address] [address] Jaimie Vernon RN Social History [...] Answer Date Recorded PHQ-2 Score 2 10/21/2022 [facility] [place] of Occupat ional Health - Occupational Stress [...] Sex Assigned at Female 09/12/2020 12:05 PM TUBE TRAILER FILLER Legal Sex Female 3:26 AM TUBE TRAILER FILLER Gender Identity Female 09/12/2020 12:05 PM TUBE TRAILER FILLER Sexual Orientation Straight 12/19/2021 10 :44 AM [...] st Contact Info) Description 06/13/2025 6:00 PM TUBE TRAILER FILLER Ancillary Procedure [facility] Imaging Center CT Clinic [address] 1st [place] [phone] Omar Carmona MD [address] [place] [address] 06/14/2025 4:00 PM TUBE TRAILER FILLER Office Visit [facility] [address] 4th [place] [address] Omar Carmona MD [address] [place] [address] 463625 06/15/2025 12:45 PM TUBE TRAILER FILLER Therapy Visit [facility] Rehabilitation Services [address] [phone] Jason Alvares MD [address] [place] [address] 295 [place], [place] 183375 Chaya Castillo OTR [facility] 150 [place] [address] 06/19/2025 10:30 AM TUBE TRAILER FILLER Virtual Visit [facility] Care Clinic [address] [place] [address] 4th [place] [phone] Omar Carmona MD [address] [place] [address] 787405 Gerson Santos, [facility] 06/26/2025 11:00 AM TUBE TRAILER FILLER [facility] Visit [facility] 150 [place] [phone] Jason Alvares MD [address] [place] [address] 198645 Chaya Casitllo, OTR [address] [address] 07/09/2025 12:45 PM TUBE TRAILER FILLER Therapy Visit [facility] 150 [place] [phone] Jason Alvares MD [address] [place] [address] 942935 Chaya Castillo, OTR [address] 187287 07/18/2025 3:00 PM TUBE TRAILER FILLER Office Visit [facility] Heart Clinic [address] [phone] Adonay Chapman APRN [address] 910645 11/05/2025 12:30 PM CDT Lab [facility] Lab [address] 1st [place] [phone] 11/05/2025 1:45 PM CDT Office Visit [facility] Dermatology Clinic [address] 3rd [place] [phone] Gavi Nieto PA-C Dermatology [address] [place] [address] 11/20/2025 10:30 AM CDT Virtual Visit [address] [place] [phone] Marquise Hanley MD [address] [place] [address] 91921 documented as of this encounter Goals Goal [...] as of this encounter Care Teams Automotive Refinish Technician Relationship Specialty Start Date End Date Rio Jaquez MD [address] [place] [address] [address] 4 [place] [address] PCP - General Family Practice 12/02/10 07/13/24 Omar Carmona MD [address] [place] [address] [phone] PCP - General Family Medicine 07/14/24 Barry Kilpatrick MD [address] [place] [address] [id number] [place], [place] 688855 Neurology 07/19/14 Michelle Henderson I, RN Nurse Coordinator Neurology 07/19/14 Rio Jaquez MD 9 [facility] 4 [place], [place] 660925 Family Practice 10/15/14 Jemima Jaramillo MD cake winder 11/20/14 Kelley Chin RN [address] 584155 Nurse Coordinator Cardiology 11/04/15 Sydnee Saleem MD 420 [facility] 508 [place], [place] 652885 Cardiology 11/04/15 Karlene Moya MD [address] [place] [address] 839165 Ophthalmology 06/24/17 Wilbert Quintero, OD [address] [place] [address] 298995 Optometry 06/24/17 Rod Gauthier DPM [address] [place] [address] 751135 Griddle Attendant Primary Podiatric Medicine 06/21/18 Nallely Hogue, RN Registered Nurse 02/20/19 11/23/22 Jan Mahmood MD [address] [place] [address] 748985 Gastroenterology 11/05/20 Brandt Quintana MD 1414 [place] [address] Resident 11/05/20 Jan Mahmood MD 516 [facility] 2A [place] [address] Assigned Gastroenterology Provider 12/01/20 Rio Jaquez MD 909 [facility] [place] 4 [place], [place] 318415 Assigned PCP 11/17/20 09/30/24 Dom Eason MD 717 [facility] 353 [place], [place] 486164 Internal Medicine 12/02/20 Jayla Plaza, RN Specialty Clipper Operator Hepatology 01/09/21 02/13/24 Jaimie Vernon, RN Specialty Clipper Operator Cardiology 10/28/21 Ruth Riddle, DPM, Podiatry/Foot and Ankle Surgery [address] [address] Assigned Musculoskeletal Provider 11/30/21 09/30/23 Marquise Hanley MD [address] [place] [address] [phone] Endocrinology, Diabetes, and Metabolism 03/05/22 Vlad Ramey MD [address] [place] [address] 65797 Cardiovascular Disease 05/07/22 Joesph Crowe MD 9 [place] [address] Surgery 05/07/22 Luis Arrington MD [address] [place] [address] 21366 Assigned Neuroscience Provider 05/16/22 05/14/23 Michelle Padilla, RN Specialty Clipper Operator Cardiology 07/03/22 Vlad Ramey MD [address] [place] [address] 500435 Assigned Heart and Vascular Provider 07/25/22 05/28/23 Marquise Hanley MD [address] [place] [address] Assigned Endocrinology Provider 08/15/22 Dom Eason MD 717 [facility] 353 [place] [address] Assigned Nephrology Provider 11/28/22 02/19/23 Wagner Oliver MD [address] [place] [address] Critical Care 12/15/22 Laura Epperson NP 717 [facility] [address] [place] [address] Assigned Nephrology Provider 02/20/23 08/30/24 Thom Taveras MD 2512 [facility], [facility] [place] [address] Assigned Cancer Care Provider 02/06/23 08/20/23 Joesph Crowe MD [address] [place] [address] 94394 MD Surgery 03/17/23 Joesph Crowe MD [address] [place] [address] 89127 Assigned Surgical Provider 04/03/23 09/30/24 Adonay Haq MD [address] [place] [address] [phone] Internal Medicine 06/14/23OctoberDenilson MD [address] [facility]00 [place], [place] 835315 Assigned Heart and Vascular Provider 05/29/23 11/28/24 Jason Alvares MD [address] [place] [address] 435345 Assigned Neuroscience Provider 05/15/23 11/28/24 Ruth Riddle DPM, Podiatry/Foot and Ankle Surgery [address] [place] [address] Assigned Musculoskeletal Provider 10/22/23 Jignesh Mathias MD [address] [place] [address] 533135 Gastroenterology 09/25/24 Adonay Haq MD [address] [place] [address] [phone] Assigned PCP 10/01/24 12/28/24 Omar Carmona MD [address] [place] [address]455 Assigned PCP 12/29/24 Jason Alvares MD [address] [place] [address] Assigned Neuroscience Provider 12/29/24 Jignesh Mathias MD [address] [place] [address]455 Assigned Surgical Provider 12/29/24 Ayad Lopez, PhD LP [address] [place] [address] [phone] Assigned Behavioral Health Provider 02/28/25 Gavi Nieto PA-C [address] [place] [address] [phone] Physician Experimental Machinist Dermatology 03/19/25 documented as of this encounter
--- OUTSIDE RECORDS SUMMARY | 2025-06-08 22:48 | XMS_ITS | Encounter Summary ---
Author Organization [facility] Address [address] [place] [address] 50218 Care Team Providers Care Bi Specialist Name Role Phone Barry Kilpatrick MD Unavailable Michelle Henderson RN Unavailable [phone] Rio Jaquez MD Unavailable +[phone] Jemima Jaramillo MD Unavailable Unavai Kelley Bautista RN Unavailable +[phone] Sydnee Saleem MD Unavailable +[phone] Karlene Moya MD Unavailable +[phone] Wilbert Quintero OD Unavailable +[phone] Rod Gauthier DPM Unavailable +[phone] Jan Mahmood MD Unavailable +[phone] Brandt Quintana MD Unavailable Jan Mahmood MD Unavailable +[phone] Dom Eason MD Unavailable +[phone] Jaimie Vernon RN Unavailable Unavailable Marquise Hanley MD Unavailable +[phone] Vlad Ramey MD Unavailable +[phone] Joesph Crowe MD Unavailable Michelle Padilla RN Unavailable Unavaila ble Marquise Hanley MD Unavailable +[phone] Wagner Oliver MD Unavailable [phone] Joesph Crowe MD Unavailable Adonay Haq MD Unavailable [phone] Ruth Riddle DPM, Podiatry /Foot and Ankle Surgery Unavailable Omar Carmona MD Primary Care Provider [phone] Jignesh Mathias MD Unavailable Omar Carmona MD Unavailable +[phone] Jason Alvares MD Unavailable Jignesh Mathias MD Unavailable Ayad Lopez PhD LP Unavailable +[phone] Gavi Nieto PA-C Unavailable +[phone] Encounter Details Date Type Department Care Team (Late st Contact Info) Description 05/03/2025 MyC Medical Advice [facility] Internal Medicine [address] [phone] Andrews Dixon, EMT Social History Tobacco Use Types Packs/Day Years [...] Answer Date Recorded PHQ-2 Score 2 05/03/2025 [facility] [place] of Occupat ional Health - Occupational Stress [...] in an overnight mcc, or couch-surfing.) Yes 04/30/2025 Are you worried [...] Sex Assigned at Female 09/12/2020 12:05 PM FUR POINTER Legal Sex Female 3:26 AM FUR POINTER Gender Identity Female 09/12/2020 12:05 PM FUR POINTER Sexual Orientation Straight 12/19/2021 10 :44 AM CDT Occupation Industry Job Start Date Job End Date on disability for FMS Not on file Not on file Not on file disabled Not on file Not on file Not on file documented as of this encounter Plan of Treatment Upcoming Encounters Date Type Department Care Team (Late st Contact Info) Description 06/13/2025 6:00 PM FUR POINTER Ancillary Procedure [facility] Imaging Center CT Clinic [address] [phone] Omar Carmona MD [address] [place] [address] 257995 06/14/2025 4:00 PM FUR POINTER Office Visit [facility] Primary Care [address] [phone] Omar Carmona MD [address] [place] [address] [phone] 06/15/2025 12:45 PM FUR POINTER Therapy Visit [facility] Rehabilitation Services [address] [phone] Jason Alvares MD [address] [place] [address] 295 [place], [place] 793185 Chaya Castillo OTR [address] [address] 06/19/2025 10:30 AM FUR POINTER Virtual Visit [facility] Primary Care [address] [phone] Omar Carmona MD [address] [place] [address] Gerson Santos, [facility] 06/26/2025 11:00 AM FUR POINTER Therapy Visit [facility] 150 [place] [phone] Jason Alvares MD [address] [place] [address] [phone] Chaya Castillo, OTR [facility] 150 [place] [address] 07/09/2025 12:45 PM FUR POINTER Therapy Visit [facility] 150 [place] [phone] Jason Alvares MD [address] [place] [address] 890915 Chaya Castillo, OTR [facility] 150 [place] [address] 07/18/2025 3:00 PM FUR POINTER Office Visit [facility] Heart Clinic [address] [phone] Adonay Chapman APRN [address] 873615 11/05/2025 12:30 PM CDT Lab [facility] Lab [address] 1st [place] [phone] 11/05/2025 1:45 PM CDT Office Visit [facility] Dermatology Clinic [address] 3rd [place] [phone] Gavi Nieto PA-C Dermatology [address] [place] [address] 11/20/2025 10:30 AM CDT Virtual Visit [address] [phone] Marquise Hanley MD [address] [place] [address] 87361 documented as of this encounter Goals Goal [...] documented as of this encounter Care Teams Bi Specialist Relationship Specialty Start Date End Date Omar Carmona MD [address] [place] [address]7310 PCP - General Family Medicine 07/14/24 Barry Kilpatrick MD [address] [place] [address] [id number] [place] [address] Neurology 07/19/14 Michelle Henderson I, RN Nurse Coordinator Neurology 07/19/14 Rio Jaquez MD [address] [place] [address] 82920 Family Practice 10/15/14 Jemima Jaramillo MD [address] [place] [address] 01786 airplane gas tank liner assembler 4/14/15 Kelley Chin RN RUST 909 [place] [address] Nurse Coordinator Cardiology 11/04/15 Sydnee Saleem MD 420 [facility] 508 [place] [address] Cardiology 11/04/15 Karlene Moya MD [address] [place] [address] 7[address]87 Ophthalmology 06/24/17 Wilbert Quintero OD [address] [place] [address] 94264 Optometry 06/24/17 Rod Gauthier DPM [address] [place] [address] 24388 Hospital Account Manager Primary Podiatric Medicine 06/21/18 Jan Mahmood MD [address] [place] [address] 17184 Gastroenterology 11/05/20 Brandt Quintana MD [address] [place] [address] 73710 Resident 11/05/20 Jan Mahmood MD [address] [place] [address] 11721 Assigned Gastroenterology Provider 12/01/20 Dom Eason MD [address] [place] [address] 14319 Internal Medicine 12/02/20 Jaimie Vernon, RN Specialty Supervisor Assembly Room Cardiology 10/28/21 Marquise Hanley MD [address] [place] [address] 50465 MD Endocrinology, Diabetes, and Metabolism 03/05/22 Vlad Ramey MD [address] [place] [address] 07627 Cardiovascular Disease 05/07/22 Joesph Crowe MD [address] [place] [address] 42713 Surgery 05/07/22 Michelle Padilla RN Specialty Supervisor Assembly Room Cardiology 07/03/22 Marquise Hanley MD [address] [place] [address] 69772 Assigned Endocrinology Provider 08/15/22 Wagner Oliver MD [address] [place] [address] Critical Care 12/15/22 Joesph Crowe MD [address] [place] [address] 09906 Surgery 03/17/23 Adonay Haq MD [address] [place] [address] 79500 Internal Medicine 06/14/23 Ruth Riddle DPM, Podiatry/Foot and Ankle Surgery [address] [place] [address] 12552 Assigned Musculoskeletal Provider 10/22/23 Jignesh Mathias MD [address] [place] [address] 09555 Gastroenterology 09/25/24 Omar Carmona MD [address] [place] [address] 69647 Assigned PCP 12/29/24 Jason Alvares MD [address] [place] [address] 16346 Assigned Neuroscience Provider 12/29/24 Jignesh Mathias MD [address] [place] [address] 20097 Assigned Surgical Provider 12/29/24 Ayad Lopez, PhD LP [address] [place] [address] 554485 Assigned Behavioral Health Provider 02/28/25 Gavi Nieto, PA-C [address] [place] [address] 790325 Physician Shipfitters Supervisor Dermatology 03/19/25 documented as of this encounter
--- OUTSIDE RECORDS SUMMARY | 2025-06-08 22:48 | XMS_ITS | Encounter Summary ---
Author Organization [facility] Address [address] [place] [address] 10793 Care Team Providers Care Recorder Helper Gravity Prospecting Name Role Phone Barry Kilpatrick MD Unavailable Michelle Henderson RN Unavailable [phone] Rio Jaquez MD Unavailable +[phone] Jemima Jaramillo MD Unavailable Unavai Kelley Bautista RN Unavailable [phone] Sydnee Saleem MD Unavailable +[phone] Karlene Moya MD Unavailable +[phone] Wilbert Quintero OD Unavailable +[phone] Rod Gauthier DPM Unavailable [phone] Jan Mahmood MD Unavailable +[phone] Brandt Quintana MD Unavailable [phone] Jan Mahmood MD Unavailable +[phone] Dom Eason MD Unavailable +[phone] Jaimie Vernon RN Unavailable Unavailable Marquise Hanley MD Unavailable +[phone] Vlad Ramey MD Unavailable +[phone] Joesph Crowe MD Unavailable Michelle Padilla RN Unavailable Unavaila ble Marquise Hanley MD Unavailable +[phone] Wagner Oliver MD Unavailable [phone] Joesph Crowe MD Unavailable Adonay Haq MD Unavailable [phone] Ruth Riddle DPM, Podiatry /Foot and Ankle Surgery Unavailable Omar Carmona MD Primary Care Provider [phone] Jignesh Mathias MD Unavailable Omar Carmona MD Unavailable +[phone] Jason Alvares MD Unavailable Jignesh Mathias MD Unavailable Ayad Lopez PhD LP Unavailable +[phone] Gavi Nieto PA-C Unavailable +[phone] Encounter Details Date Type Department Care Team (Late st Contact Info) Description 05/03/2025 MyC Medical Advice [facility] Internal Medicine [address] [phone] Andrews Dixon, EMT Social History [...] Answer Date Recorded PHQ-2 Score 2 05/03/2025 [place] of Occupat ional Health - Occupational Stress [...] in an overnight fci, or couch-surfing.) Yes 04/30/2025 Are you worried [...] Sex Assigned at Female 09/12/2020 12:05 PM CREDIT COMPLIANCE OFFICER Legal Sex Female 3:26 AM CREDIT COMPLIANCE OFFICER Gender Identity Female 09/12/2020 12:05 PM CREDIT COMPLIANCE OFFICER Sexual Orientation Straight 12/19/2021 10 :44 AM CDT Occupation Industry Job Start Date Job End Date on disability for FMS Not on file Not on file Not on file disabled Not on file Not on file Not on file documented as of this encounter Plan of Treatment Upcoming Encounters Date Type Department Care Team (Late st Contact Info) Description 06/13/2025 6:00 PM CREDIT COMPLIANCE OFFICER Ancillary Procedure [facility] Imaging Center CT Clinic [address] [phone] Omar Carmona MD [address] [place] [address] 782145 06/14/2025 4:00 PM CREDIT COMPLIANCE OFFICER Office Visit [facility] Primary Care [address] [phone] Omar Carmona MD [address] [place] [address] [phone] 06/15/2025 12:45 PM CREDIT COMPLIANCE OFFICER Therapy Visit [facility] Rehabilitation Services [address] [phone] Jason Alvares MD [address] [place] [address] 295 [place], [place] 654675 Chaya Castillo OTR [address] [address] 06/19/2025 10:30 AM CREDIT COMPLIANCE OFFICER Virtual Visit [facility] Primary Care [address] [phone] Omar Carmona MD [address] [place] [address] Gerson Santos, [facility] 06/26/2025 11:00 AM CREDIT COMPLIANCE OFFICER Therapy Visit [facility] 150 [place] [phone] Jason Alvares MD [address] [place] [address] 574785 Chaya Castillo, OTR [facility] 150 [place] [address] 07/09/2025 12:45 PM CREDIT COMPLIANCE OFFICER Therapy Visit [facility] 150 [place] [phone] Jason Alvares MD [address] [place] [address] 056135 Chaya Castillo, OTR [facility] 150 [place] [address] 07/18/2025 3:00 PM CREDIT COMPLIANCE OFFICER Office Visit [facility] Heart Clinic [address] [phone] Adonay Chapman APRN [address] 344975 11/05/2025 12:30 PM CDT Lab [facility] Lab [address] [place] [phone] 11/05/2025 1:45 PM CDT Office Visit [facility] Dermatology Clinic [address] [place] [phone] Gavi Nieto PA-C Dermatology [address] [place] [address] 11/20/2025 10:30 AM CDT Virtual Visit [address] [phone] Marquise Hanley MD [address] [place] [address] 65364 documented as of this encounter Goals Goal [...] documented as of this encounter Care Teams Recorder Helper Gravity Prospecting Relationship Specialty Start Date End Date Omar Carmona MD [address] [place] [address] 64778 PCP - General Family Medicine 07/14/24 Barry Kilpatrick MD [address] [place] [address] [id number] [place] [address] Neurology 07/19/14 Michelle Henderson I, RN Nurse Coordinator Neurology 07/19/14 Rio Jaquez MD [address] [place] [address] 91440 Family Practice 10/15/14 Jemima Jaramillo MD [address] [place] [address] 90707 hand finisher 4/14/15 Kelley Chin RN [facility] 909 [place] [address] Nurse Coordinator Cardiology 11/04/15 Sydnee Saleem MD 420 [facility] 508 [place] [address] Cardiology 11/04/15 Karlene Moya MD [address] [place] [address] 72707 Ophthalmology 06/24/17 Wilbert Quintero OD [address] [place] [address] 55098 Optometry 06/24/17 Rod Gauthier DPM [address] [place] [address] 28459 Mixing Pan Tender Primary Podiatric Medicine 06/21/18 Jan Mahmood MD [address] [place] [address] 57959 Gastroenterology 11/05/20 Brandt Quintana MD [address] [place] [address] 10351 Resident 11/05/20 Jan Mahmood MD [address] [place] [address] 60554 Assigned Gastroenterology Provider 12/01/20 Dom Eason MD [address] [place] [address] 15754 Internal Medicine 12/02/20 Jaimie Vernon, RN Specialty Bi Data Architect Cardiology 10/28/21 Marquise Hanley MD [address] [place] [address] 37295 MD Endocrinology, Diabetes, and Metabolism 03/05/22 Vlad Ramey MD [address] [place] [address] 00642 Cardiovascular Disease 05/07/22 Joesph Crowe MD [address] [place] [address] 17576 Surgery 05/07/22 Michelle Padilla RN Specialty Bi Data Architect Cardiology 07/03/22 Marquise Hanley MD [address] [place] [address] 47621 Assigned Endocrinology Provider 08/15/22 Wagner Oliver MD [address] [place] [address] Critical Care 12/15/22 Joesph Crowe MD [address] [place] [address] 31814 Surgery 03/17/23 Adonay Haq MD [address] [place] [address] 22669 Internal Medicine 06/14/23 Ruth Riddle DPM, Podiatry/Foot and Ankle Surgery [address] [place] [address] 23768 Assigned Musculoskeletal Provider 10/22/23 Jignesh Mathias MD [address] [place] [address] 80351 Gastroenterology 09/25/24 Omar Carmona MD [address] [place] [address] 28790 Assigned PCP 12/29/24 Jason Alvares MD [address] [place] [address] 34207 Assigned Neuroscience Provider 12/29/24 Jignesh Mathias MD [address] [place] [address] 31160 Assigned Surgical Provider 12/29/24 Ayad Lopez, PhD LP [address] [place] [address] [phone] Assigned Behavioral Health Provider 02/28/25 Gavi Nieto, PA-C [address] [place] [address] 976795 Physician Rn Stars Dermatology 03/19/25 documented as of this encounter
--- OUTSIDE RECORDS SUMMARY | 2025-06-08 22:48 | XMS_ITS | Encounter Summary ---
Author Organization [facility] Address [address] [place] [address] 65[address] Care Team Providers Care Aging Box Hand Name Role Phone Barry Kilpatrick MD Unavailable Michelle Henderson RN Unavailable [phone] Rio Jaquez MD Unavailable +[phone] Jemima Jaramillo MD Unavailable Unavai Kelley Bautista RN Unavailable +[phone] Sydnee Saleem MD Unavailable +[phone] Karlene Moya MD Unavailable +[phone] Wilbert Quintero OD Unavailable +[phone] Rod Gauthier DPM Unavailable +[phone] Jan Mahmood MD Unavailable +[phone] Brandt Quintana MD Unavailable [phone] Jan Mahmood MD Unavailable +[phone] Dom Eason MD Unavailable +[phone] Jaimie Vernon RN Unavailable Unavailable Marquise Hanley MD Unavailable +[phone] Vlad Ramey MD Unavailable +[phone] Joesph Crowe MD Unavailable Michelle Padilla RN Unavailable Unavaila ble Marquise Hanley MD Unavailable +[phone] Wagner Oliver MD Unavailable + [phone] Joesph Crowe MD Unavailable +[phone] Adoany Haq MD Unavailable [phone] Ruth RiddleM, Podiatry /Foot and Ankle Surgery Unavailable Omar Carmona MD Primary Care Provider [phone] Jignesh Mathias MD Unavailable Omar Carmona MD Unavailable [phone] Jason Alvares MD Unavailable Jignesh Mathias MD Unavailable Ayad Lopez PhD LP Unavailable +[phone] Gavi Nieto PA-C Unavailable +[phone] Encounter Details Date Type Department Care Team (Latest Contact Info) Description 05/11/2025 Travel Social History Tobacco Use Types Packs/Day [...] Answer Date Recorded PHQ-2 Score 2 05/03/2025 [facility] [place] of Occupat ional Health - Occupational Stress [...] Sex Assigned at Female 09/12/2020 12:05 PM PHYSICAL DIRECTOR Legal Sex Female 3:26 AM PHYSICAL DIRECTOR Gender Identity Female 09/12/2020 12:05 PM PHYSICAL DIRECTOR Sexual Orientation Straight 12/19/2021 10 :44 AM CDT Occupation Industry Job Start Date Job End Date on disability for FMS Not on file Not on file Not on file disabled Not on file Not on file Not on file documented as of this encounter Plan of Treatment Upcoming Encounters Date Type Department Care Team (Late st Contact Info) Description 06/13/2025 6:00 PM PHYSICAL DIRECTOR Ancillary Procedure [facility] Imaging Center CT Clinic [address] [phone] Omar Carmona MD [address] [place] [address] [id number] 06/14/2025 4:00 PM PHYSICAL DIRECTOR Office Visit [facility] Primary Care Clinic [address] [address] Omar Carmona MD [address] [place] [address] [phone] 06/15/2025 12:45 PM PHYSICAL DIRECTOR Therapy Visit [facility] Rehabilitation Services [address] [phone] Jason Alvares MD 420 [facility] 295 [place], [place] [phone] Chaya Castillo, OTR [facility] 150 [place] [address] 06/19/2025 10:30 AM PHYSICAL DIRECTOR Virtual Visit [facility] Primary Care [address] [address] Omar Carmona MD [address] [place] [address] 355395 Gerson Santos RPH 06/26/2025 11:00 AM PHYSICAL DIRECTOR Therapy Visit [facility] 150 [facility] [place] [address] Jason Alvares MD [address] [place] [address] Chaya Castillo, [facility]TR [facility] 150 [place] [address] 07/09/2025 12:45 PM PHYSICAL DIRECTOR Therapy Visit [facility] 150 [place] [address] Jason Alvares MD [address] [place] [address] Chaya Castillo [facility]TR [facility] 150 [place] [address] 07/18/2025 3:00 PM PHYSICAL DIRECTOR Office Visit [facility] Heart [address] [phone] Adonay Chapman APRN [address] [address] 11/05/2025 12:30 PM CDT Lab [facility] Lab [address] 1st [place] [phone] 11/05/2025 1:45 PM CDT Office Visit [facility] Dermatology Clinic [address] 3rd [place] [phone] Gavi Nieto PA-C Dermatology [address] [place] [address] 11/20/2025 10:30 AM CDT Virtual Visit M [address] [address] Marquise Hanley MD [address] [place] [address] documented as of this encounter Goals Goal [...] documented as of this encounter Care Teams Aging Box Hand Relationship Specialty Start Date End Date Omar Carmona MD [address] [place] [address]17 PCP - General Family Medicine 07/14/24 Barry Kilpatrick MD [address] [place] [address] [id number] [place] [address] Neurology 07/19/14 Michelle Henderson RN Nurse Coordinator Neurology 07/19/14 Rio Jaquez MD [address] [place] [address] 11508 Family Practice 10/15/14 Jemima Jaramillo MD [address] [place] [address] 53917 supervisor photocomposition 11/20/14 Kelley Chin, TANIA [address] [address] Nurse Coordinator Cardiology 11/04/15 Sydnee Saleem MD 420 [facility] 508 [place] [address] Cardiology 11/04/15 Karlene Moya MD 516 [place], [place] 424525 Ophthalmology 06/24/17 Wilbert Quintero OD 909 [place], [place] 036715 Optometry 06/24/17 Rod Gauthier DPM 909 [place], [place] 370745 Wet Pan Mixer Primary Podiatric Medicine 06/21/18 Jan Mahmood MD [address] [place] [address] 2A [place], [place] 646795 Gastroenterology 11/05/20 Brandt Quintana MD [address] [place] [address] Resident 11/05/20 Jan Mahmood MD [address] [address] Assigned Gastroenterology Provider 12/01/20 Dom Eason MD 717 [facility] 353 [place] [address] Internal Medicine 12/02/20 Jaimie Vernon, RN Specialty Customer Success Advocate Cardiology 10/28/21 Marquise Hanley MD [address] [place] [address] Endocrinology, Diabetes, and Metabolism 03/05/22 Vlad Ramey MD [address] [place] [address] 04204 Cardiovascular Disease 05/07/22 Joesph Crowe MD [address] [place] [address] 29268 Surgery 05/07/22 Michelle Padilla RN Specialty Customer Success Advocate Cardiology 07/03/22 Marquise Hanley MD [address] [place] [address] 17721 Assigned Endocrinology Provider 08/15/22 Wagner Oliver MD [address] [place] [address] Critical Care 12/15/22 Joesph Crowe MD [address] [place] [address] 9[address]81 Surgery 03/17/23 Adonay Haq MD [address] [place] [address] 8[address]29 Internal Medicine 06/14/23 Ruth Riddle DPM, Podiatry/Foot and Ankle Surgery [address] [place] 329437 Assigned Musculoskeletal Provider 10/22/23 Jignesh Mathias MD [address] [place] [address] 425135 Gastroenterology 09/25/24 Omar Carmona MD [address] [place] [address] 624345 Assigned PCP 12/29/24 Jason Alvares MD [address] [place] [address] [phone] Assigned Neuroscience Provider 12/29/24 Jignesh Mathias MD [address] [place] [address] 160885 Assigned Surgical Provider 12/29/24 Ayad Lopez, PhD LP [address] [place] [address] 709845 Assigned Behavioral Health Provider 02/28/25 Gavi Nieto, PA-C [address] [place] [address] 868025 Physician Wheel Cleaner Dermatology 03/19/25 documented as of this encounter
--- OUTSIDE RECORDS SUMMARY | 2025-06-08 22:48 | XMS_ITS | Encounter Summary ---
Author Organization [facility] Address [address] [place] [address] Care Team Providers Care Industrial Truck Mechanic Name Role Phone Barry Kilpatirck MD Unavailable Michelle Henderson RN Unavailable [phone] Rio Jaquez MD Unavailable +[phone] Jemima Jaramillo MD Unavailable Unavai Kelley Bautista RN Unavailable [phone] Sydnee Saleem MD Unavailable [phone] Karlene Moya MD Unavailable [phone] Wilbert Quintero OD Unavailable +[phone] Rod Gauthier DPM Unavailable [phone] Jan Mahmood MD Unavailable +[phone] Brandt Quintana MD Unavailable Jan Mahmood MD Unavailable [phone] Dom Eason MD Unavailable +[phone] Jaimie Vernon RN Unavailable Unavailable Marquise Hanley MD Unavailable +[phone] Vlad Ramey MD Unavailable +[phone] Joesph Crowe MD Unavailable [phone] Michelle Padilla RN Unavailable Unavaila ble Marquise Hanley MD Unavailable [phone] Wagner Oliver MD Unavailable [phone] Joesph Crowe MD Unavailable Adonay aHq MD Unavailable Ruth Riddle DPM, Podiatry /Foot and Ankle Surgery Unavailable Omar Carmona MD Primary Care Provider Jignesh Mathias MD Unavailable Omar Carmona MD Unavailable Jason Alvares MD Unavailable Jignesh Mathias MD Unavailable Ayad Lopez PhD LP Unavailable Gavi Nieto PA-C Unavailable [phone] Encounter Details Date Type Department Care Team (Late st Contact Info) Description 05/09/2025 [facility] Primary [facility] Clinic [address] [address] Omar Carmona MD [address] [place] [address] Social History Tobacco Use Types Packs/Day [...] Answer Date Recorded PHQ-2 Score 2 05/03/2025 [facility] of Occupat ional [facility] - Occupational Stress Questionnaire Answer Date [...] Sex Assigned at Female 09/12/2020 12:05 PM ACCIDENT EXAMINER Legal Sex Female 3:26 AM ACCIDENT EXAMINER Gender Identity Female 09/12/2020 12:05 PM ACCIDENT EXAMINER Sexual Orientation Straight 12/19/2021 10 :44 AM CDT Occupation Industry Job Start Date Job End Date on disability for FMS Not on file Not on file Not on file disabled Not on file Not on file Not on file documented as of this encounter Plan of Treatment Upcoming Encounters Date Type Department Care Team (Late st Contact Info) Description 06/13/2025 6:00 PM ACCIDENT EXAMINER Ancillary Procedure [facility] Imaging Center CT Clinic [address] [place] [phone] Omar Carmona MD [address] [place] [address] [phone] 06/14/2025 4:00 PM ACCIDENT EXAMINER Office Visit [facility] [address] [place] [phone] Omar Carmona MD [address] [place] [address] 06/15/2025 12:45 PM ACCIDENT EXAMINER Therapy Visit [facility] Rehabilitation Services [address] [phone] Jason Alvares MD [address] [place] [address] 295 [place], [place] 541885 Chaya Castillo OTR [facility] 150 [place] [address] 06/19/2025 10:30 AM ACCIDENT EXAMINER Virtual Visit [facility] Primary Care [address] [place] [phone] Omar Carmona MD [address] [place] [address] 205535 Gerson Santos, [facility] 06/26/2025 11:00 AM ACCIDENT EXAMINER Therapy Visit [facility] 150 [place] [phone] Jason Alvares MD [address] [place] [address] 789785 Chaya Castillo, OTR [address] [address] 07/09/2025 12:45 PM ACCIDENT EXAMINER Therapy Visit [address] [phone] Jason lAvares MD [address] [place] [address] 309445 Chaya Castillo, OTR [address] [address] 07/18/2025 3:00 PM ACCIDENT EXAMINER Office Visit [facility] Heart Clinic [address] [phone] Adonay Chapman APRN [facility] 500 [place], [place] 756905 11/05/2025 12:30 PM CDT Lab [facility] Lab [address] [phone] 11/05/2025 1:45 PM CDT Office Visit [facility] Dermatology Clinic [address] [place] [phone] Gavi Nieto PA-C Dermatology [address] [place] [address] 11/20/2025 10:30 AM CDT Virtual Visit [address] [phone] Marquise Hanley MD [address] [place] [address] documented as of this encounter Goals Goal [...] documented as of this encounter Care Teams Industrial Truck Mechanic Relationship Specialty Start Date End Date Omar Carmona MD [address] [place] [address] PCP - General Family Medicine 07/14/24 Barry Kilpatrick MD [address] [place] [address] DC6810QC [place] [address] Neurology 07/19/14 Michelle Henderson I, TANIA Nurse Coordinator Neurology 07/19/14 Rio Jaquez MD [address] [place] [address] [address] 4 [place] [address] Family Practice 10/15/14 Jemima Jaramillo MD 9 [facility] 4 [place] [address] cable splicer assistant 11/20/14 Kelley Chin, TANIA [facility] [address] [place] [address] Nurse Coordinator Cardiology 11/04/15 Sydnee Saleem MD [address] [place] [address] 508 [place], [place] 704705 Cardiology 11/04/15 Karlene Moya MD [address] [place] [address] [phone] Ophthalmology 06/24/17 Wilbert Quintero OD [address] [place] [address] 257585 Optometry 06/24/17 Rod Gauthier DPM [address] [place] [address] 352165 International Account Manager Primary Podiatric Medicine 06/21/18 Jan Mahmood MD [address] [place] [address] 2A [place] [address] Gastroenterology 11/05/20 Brandt Quintana MD [address] [place] [address] Resident 11/05/20 Jan Mahmood MD [address] [place] [address] 2A [place] [address] Assigned Gastroenterology Provider 12/01/20 Dom Eason MD [address] [place] [address] Internal Medicine 12/02/20 Jaimie Vernon, RN Specialty Manager Procurement Cardiology 10/28/21 Marquise Hanley MD [address] [place] [address] 78869 Endocrinology, Diabetes, and Metabolism 03/05/22 Vlad Ramey MD [address] [place] [address] 38379 Cardiovascular Disease 05/07/22 Joesph Crowe MD [address] [place] [address] 90940 Surgery 05/07/22 Michelle Padilla, RN Specialty Manager Procurement Cardiology 07/03/22 Marquise Hanley MD [address] [place] [address] 44268 Assigned Endocrinology Provider 08/15/22 Wagner Oliver MD [address] [place] [address] Critical Care 12/15/22 Joesph Crowe MD [address] [place] [address] 46578 Surgery 03/17/23 Adonay Haq MD [address] [place] [address] 28942 Internal Medicine 06/14/23 Ruth Riddle DPM, Podiatry/Foot and Ankle Surgery [address] [address] Assigned Musculoskeletal Provider 10/22/23 Jignesh Mathias MD [address] [place] [address] 717195 Gastroenterology 09/25/24 Omar Carmona MD [address] [place] [address] 317695 Assigned PCP 12/29/24 Jason Alvares MD [address] [place] [address] 634215 Assigned Neuroscience Provider 12/29/24 Jignesh Mathais MD [address] [place] [address] 417615 Assigned Surgical Provider 12/29/24 Ayad Lopez, PhD LP [address] [place] [address] 730845 Assigned Behavioral Health Provider 02/28/25 Gavi Nieto PANavinC [address] [place] [address] 847745 Physician Electric Stove Installer Dermatology 03/19/25 documented as of this encounter
--- OUTSIDE RECORDS SUMMARY | 2025-06-08 22:48 | XMS_ITS | Encounter Summary ---
Author Organization [facility] Address [address] [place] [address] Care Team Providers Care Coal Screener Name Role Phone Barry Kilpatrick MD Unavailable Michelle Henderson RN Unavailable Rio Jaquez MD Unavailable [phone] Jemima Jaramillo MD Unavailable Unavai Kelley Bautista RN Unavailable [phone] Sydnee Saleem MD Unavailable [phone] Karlene Moya MD Unavailable +[phone] Wilbert Quintero OD Unavailable +[phone] Rod Gauthier DPM Unavailable [phone] Jan Mahmood MD Unavailable [phone] Brandt Quintana MD Unavailable Jan Mahmood MD Unavailable [phone] Dom Eaosn MD Unavailable +[phone] Jaimie Vernon RN Unavailable Unavailable Marquise Hanley MD Unavailable +[phone] Vlad Ramey MD Unavailable +[phone] Joesph Crowe MD Unavailable [phone] Michelle Padilla RN Unavailable Unavaila ble Marquise Hanley MD Unavailable +[phone] Wagner Oliver MD Unavailable + [phone] Joesph Crowe MD Unavailable +[phone] Adonay Haq MD Unavailable [phone] Ruth Riddle DPM, Podiatry /Foot and Ankle Surgery Unavailable Omar Carmona MD Primary Care Provider [phone] Jignesh Mathias MD Unavailable Omar Carmona MD Unavailable [phone] Jason Alvares MD Unavailable Jignesh Mathias MD Unavailable Ayad Lopez PhD LP Unavailable [phone] Gavi Nieto PA-C Unavailable [phone] Encounter Details Date Type Department Care Team (Latest Contact Info) Description 05/07/2025 Travel Social History Tobacco Use Types Packs/Day [...] Answer Date Recorded PHQ-2 Score 2 05/03/2025 [facility] [place] of Occupat ional Health - Occupational Stress [...] in an overnight mcfp, or couch-surfing.) Yes 04/30/2025 Are you worried [...] Sex Assigned at Female 09/12/2020 12:05 PM BILINGUAL SALES REPRESENTATIVE Legal Sex Female 3:26 AM BILINGUAL SALES REPRESENTATIVE Gender Identity Female 09/12/2020 12:05 PM BILINGUAL SALES REPRESENTATIVE Sexual Orientation Straight 12/19/2021 10 :44 AM CDT Occupation Industry Job Start Date Job End Date on disability for FMS Not on file Not on file Not on file disabled Not on file Not on file Not on file documented as of this encounter Plan of Treatment Upcoming Encounters Date Type Department Care Team (Late st Contact Info) Description 06/13/2025 6:00 PM BILINGUAL SALES REPRESENTATIVE Ancillary Procedure [facility] Imaging Center CT Clinic [address] [phone] Omar Carmona MD [address] [place] [address] [phone] 06/14/2025 4:00 PM BILINGUAL SALES REPRESENTATIVE Office Visit [facility] Primary Care Clinic [address] [address] Omar Carmona MD [address] [place] [address] [phone] 06/15/2025 12:45 PM BILINGUAL SALES REPRESENTATIVE Therapy Visit [facility] Rehabilitation Services [address] [phone] Jason Alvares MD 420 [facility] 295 [place], [place] [phone] Chaya Castillo, OTR [facility] 150 [place] [address] 06/19/2025 10:30 AM BILINGUAL SALES REPRESENTATIVE Virtual Visit [facility] Primary Care [address] [address] Omar Carmona MD [address] [place] [address] 726805 Gerson Santos RPH 06/26/2025 11:00 AM BILINGUAL SALES REPRESENTATIVE Therapy [facility] 150 [facility] [place] [address] Jason Alvares MD [address] [place] [address] Chaya Castillo, OTR [facility] 150 [place] [address] 07/09/2025 12:45 PM BILINGUAL SALES REPRESENTATIVE Therapy Visit [facility] 150 [place] [address] Jason Alvares MD [address] [place] [address] Chaya Castillo OTR [facility] 150 [place] [address] 07/18/2025 3:00 PM BILINGUAL SALES REPRESENTATIVE Office Visit [facility] Heart [address] [phone] Adonay Chapman APRN [address] [address] 11/05/2025 12:30 PM CDT Lab [facility] Lab [address] 1st [place] [address] 11/05/2025 1:45 PM CDT Office Visit [facility] Dermatology Clinic [address]rd [place] [phone] Gavi Nieto PA-C Dermatology [address] [place] [address] 11/20/2025 10:30 AM CDT Virtual Visit M [address] [address] Marquise Hanley MD [address] [place] [address] 8[address] documented as of this encounter Goals Goal [...] as of this encounter Care Teams Coal Screener Relationship Specialty Start Date End Date Omar Carmona MD [address] [place] [address] 87793 PCP - General Family Medicine 07/14/24 Barry Kilpatrick MD [address] [place] [address] [id number] [place] [address] Neurology 07/19/14 Michelle Henderson RN Nurse Coordinator Neurology 07/19/14 Rio Jaquez MD [address] [place] [address] 87168 Family Practice 10/15/14 Jemima Jaramillo MD [address] [place] [address] 24268 heat treater 11/20/14 Kelley Chin, TANIA [address] [address] Nurse Coordinator Cardiology 11/04/15 Sydnee Saleem MD 420 [facility] 508 [place] [address] Cardiology 11/04/15 Karlene Moya MD 516 [place], [place] 964345 Ophthalmology 06/24/17 Wilbert Quintero OD 909 [place], [place] 090725 Optometry 06/24/17 Rod Gauthier DPM 909 [place], [place] 972575 Coal Crusher Operator Primary Podiatric Medicine 06/21/18 Jan Mahmood MD [address] [place] [address] 2A [place], [place] 636315 Gastroenterology 11/05/20 Brandt Quintana MD [address] [place] [address] Resident 11/05/20 Jan Mahmood MD [address] [address] Assigned Gastroenterology Provider 12/01/20 Dom Eason MD 717 [facility] 353 [place] [address] Internal Medicine 12/02/20 Jaimie Vernon, RN Specialty Bar Useful Or Busser Cardiology 10/28/21 Marquise Hanley MD [address] [place] [address] Endocrinology, Diabetes, and Metabolism 03/05/22 Vlad Ramey MD [address] [place] [address]69 Cardiovascular Disease 05/07/22 Joesph Crowe MD [address] [place] [address] 33277 Surgery 05/07/22 Michelle Padilla RN Specialty Bar Useful Or Busser Cardiology 07/03/22 Marquise Hanley MD [address] [place] [address] 53768 Assigned Endocrinology Provider 08/15/22 Wagner Oliver MD [address] [place] [address] Critical Care 12/15/22 Joesph Crowe MD [address] [place] [address] 16182 Surgery 03/17/23 Adonay Haq MD [address] [place] [address] 70199 Internal Medicine 06/14/23 Ruth Riddle DPM, Podiatry/Foot and Ankle Surgery [address] [place] 665157 Assigned Musculoskeletal Provider 10/22/23 Jignesh Mathias MD [address] [place] [address] 860335 Gastroenterology 09/25/24 Omar Carmona MD [address] [place] [address] 491945 Assigned PCP 12/29/24 Jason Alvares MD [address] [place] [address] [phone] Assigned Neuroscience Provider 12/29/24 Jignesh Mathias MD [address] [place] [address] 146005 Assigned Surgical Provider 12/29/24 Ayad Lopez, PhD LP [address] [place] [address] [phone] Assigned Behavioral Health Provider 02/28/25 Gavi Nieto, PA-C [address] [place] [address] 353715 Physician Manager Heavy Duty Dermatology 03/19/25 documented as of this encounter
--- OUTSIDE RECORDS SUMMARY | 2025-06-08 22:49 | XMS_ITS | Encounter Summary ---
Author Organization [place] Address [address] [place] [address] 52978 Care Team Providers Care Exhibition Carver Name Role Phone Barry Kilpatrick MD Unavailable Michelle Henderson RN Unavailable [phone] Rio Jaquez MD Unavailable +[phone] Jemima Jaramillo MD Unavailable Unavai Kelley Bautista RN Unavailable +[phone] Sydnee Saleem MD Unavailable +[phone] Karlene Moya MD Unavailable +[phone] Wilbert Quintero OD Unavailable +[phone] Rod Gauthier DPM Unavailable +[phone] Jan Mahmood MD Unavailable +[phone] Brandt Quintana MD Unavailable [phone] Jan Mahmood MD Unavailable +[phone] Dom Eason MD Unavailable +[phone] Jaimie Vernon RN Unavailable Unavailable Marquise Hanley MD Unavailable +[phone] Vlad Ramey MD Unavailable +[phone] Joesph Crowe MD Unavailable Michelle Padilla RN Unavailable Unavaila ble Marquise Hanley MD Unavailable [phone] Wagner Oliver MD Unavailable +[phone] Joesph Crowe MD Unavailable Adonay Haq MD Unavailable Ruth Riddle DPM, Podiatry /Foot and Ankle Surgery Unavailable Omar Carmona MD Primary Care Provider [phone] Jignesh Mathias MD Unavailable Omar Carmnoa MD Unavailable [phone] Jason Alvares MD Unavailable Jignesh Mathias MD Unavailable Ayad Lopez PhD LP Unavailable +[phone] Gavi Nieto PA-C Unavailable +[phone] Encounter Details Date Type Department Care Team (Late st Contact Info) Description 04/26/2025 [facility] [address] [address] Omar Carmona MD [address] [place] [address] Social History Tobacco Use Types Packs/Day [...] Answer Date Recorded PHQ-2 Score 2 04/11/2025 [facility] of [...] Sex Assigned at Female 09/12/2020 12:05 PM SPORTS BOOK SERVER Legal Sex Female 3:26 AM SPORTS BOOK SERVER Gender Identity Female 09/12/2020 12:05 PM SPORTS BOOK SERVER Sexual Orientation Straight 12/19/2021 10 :44 AM CDT Occupation Industry Job Start Date Job End Date on disability for FMS Not on file Not on file Not on file disabled Not on file Not on file Not on file documented as of this encounter Plan of Treatment Upcoming Encounters Date Type Department Care Team (Late st Contact Info) Description 06/13/2025 6:00 PM SPORTS BOOK SERVER Ancillary Procedure [facility] [address] [phone] Omar Carmona MD [address] [place] [address] 06/14/2025 4:00 PM SPORTS BOOK SERVER Office Visit [facility] [address]th [place] [phone] Omar Carmona MD [address] [place] [address] 6[address] 06/15/2025 12:45 PM SPORTS BOOK SERVER [facility] [place] [address] [facility] [facility] [place] [address] Jason Alvares MD [address] [place] [address] 244985 Chaya Castillo, OTR [facility] 150 [place], [place] 834737 06/19/2025 10:30 AM SPORTS BOOK SERVER Virtual Visit [facility] [address] [place] [address] 4th [place] [address] Omar Carmona MD [address] [place] [address] Gerson Santos [facility] 06/26/2025 11:00 AM SPORTS BOOK SERVER [facility] 150 [place] [phone] Jason Alvares MD [address] [place] [address] 728455 Chaya Castillo, OTR [facility] 150 [place] [address] 07/09/2025 12:45 PM SPORTS BOOK SERVER [facility] 150 [place] [phone] Jason Alvares MD [address] [place] [address] 441465 Chaya Castillo, OTR [facility] 150 [place] [address] 07/18/2025 3:00 PM SPORTS BOOK SERVER Office Visit [facility] [address] [phone] Adonay Chapman APRN PERSONAL LINES AGENT 500 [place] [address] 11/05/2025 12:30 PM CDT Lab [facility] Lab [address] [phone] 11/05/2025 1:45 PM CDT Office Visit [facility] Dermatology Clinic [address]rd [place] [phone] Gavi Nieto PA-C Dermatology [address] [place] [address] [phone] 11/20/2025 10:30 AM CDT Virtual Visit [address] [phone] Marquise Hanley MD [address] [place] [address] 18483 documented as of this encounter Goals Goal [...] documented as of this encounter Care Teams Exhibition Carver Relationship Specialty Start Date End Date Omar Carmona MD [address] [place] [address] 83078 PCP - General Family Medicine 07/14/24 Barry Kilpatrick MD [address] [place] [address] [id number] [place], [place] 513555 Neurology 07/19/14 Michelle Henderson I, RN Nurse Coordinator Neurology 07/19/14 Rio Jaquez MD [address] [place] [address] 256755 Family Practice 10/15/14 Jemima Jaramillo MD [address] [place] [address] 59949 color tester 11/20/14 Kelley Chin, TANIA [address] 938995 Nurse Coordinator Cardiology 11/04/15 Sydnee Saleem MD [address] [place] [address] [facility] [address] [place] [phone] Cardiology 11/04/15 Karlene Moya MD [address] [place] [address] 461895 Ophthalmology 06/24/17 Wilbert Quintero, OD [address] [place] [address] [phone] Optometry 06/24/17 Rod Gauthier DPM [address] [place] [address] 813465 Green Promotions Specialist Primary Podiatric Medicine 06/21/18 Jan Mahmood MD [address] [place] [address] [address] [place], [place] 211755 Gastroenterology 11/05/20 Brandt Quintana MD 1414 [place] [address] Resident 11/05/20 Jan Mahmood MD [address] [address] Assigned Gastroenterology Provider 12/01/20 Dom Eason MD [address] [address] Internal Medicine 12/02/20 Jaimie Vernon, RN Specialty Risk Control Field Representative Cardiology 10/28/21 Marquise Hanley MD [address] [place] [address]77 Endocrinology, Diabetes, and Metabolism 03/05/22 Vlad Ramey MD [address] [place] [address] 76061 Cardiovascular Disease 05/07/22 Joesph Crowe MD [address] [place] [address] 21834 Surgery 05/07/22 Michelle Padilla, RN Specialty Risk Control Field Representative Cardiology 07/03/22 Marquise Hanley MD [address] [place] [address] 97469 Assigned Endocrinology Provider 08/15/22 Wagner Oliver MD [address] [place] [address] Critical Care 12/15/22 Joesph Crowe MD [address] [place] [address] 63805 Surgery 03/17/23 Adonay Haq MD [address] [place] [address] 18706 Internal Medicine 06/14/23 Ruth Riddle DPM, Podiatry/Foot and Ankle Surgery [address] [address] Assigned Musculoskeletal Provider 10/22/23 Jignesh Mathias MD [address] [place] [address]35[address] Gastroenterology 09/25/24 Omar Carmona MD [address] [place] [address] 56277 Assigned PCP 12/29/24 Jason Alvares MD [address] [place] [address] 22044 Assigned Neuroscience Provider 12/29/24 Jignesh Mathias MD [address] [place] [address] 86601 Assigned Surgical Provider 12/29/24 Ayad Lopez, PhD LP [address] [place] [address] 77609 Assigned Behavioral Health Provider 02/28/25 Gavi Nieto PA-C [address] [place] [address] Physician Rewriter Dermatology 03/19/25 documented as of this encounter
--- OUTSIDE RECORDS SUMMARY | 2025-06-08 22:49 | XMS_ITS | Encounter Summary ---
Author Organization [place] Address [address] [place] [address] 18330 Care Team Providers Care Servicenow Administrator Name Role Phone Barry Kilpatrick MD Unavailable Michelle Henderson RN Unavailable [phone] Rio Jaquez MD Unavailable +[phone] Jemima Jaramillo MD Unavailable Unavai Kelley Bautista RN Unavailable [phone] Sydnee Saleem MD Unavailable [phone] Karlene Moya MD Unavailable [phone] Wilbert Quintero OD Unavailable +[phone] Rod Gauthier DPM Unavailable +[phone] Jan Mahmood MD Unavailable +[phone] Brandt Quintana MD Unavailable [phone] Jan Mahmood MD Unavailable [phone] Dom Eason MD Unavailable +[phone] Jaimie Vernon RN Unavailable Unavailable Marquise Hanley MD Unavailable +[phone] Vlad Ramey MD Unavailable [phone] Joesph Crowe MD Unavailable Michelle Padilla RN Unavailable Unavaila ble Marquise Hanley MD Unavailable +[phone] Wagner Oliver MD Unavailable +[phone] Joesph Crowe MD Unavailable +[phone] Adonay Haq MD Unavailable [phone] Ruth RiddleM, Podiatry /Foot and Ankle Surgery Unavailable Omar Carmona MD Primary Care Provider [phone] Jignesh Mathias MD Unavailable Omar Carmona MD Unavailable [phone] Jason Alvares MD Unavailable Jignesh Mathias MD Unavailable Ayad Lopez PhD LP Unavailable +[phone] Gavi Nieto PA-C Unavailable [phone] Encounter Details Date Type Department Care Team (Latest Contact Info) Description 04/25/2025 Travel Social History Tobacco Use Types Packs/Day [...] Answer Date Recorded PHQ-2 Score 2 04/11/2025 [facility] of Occupat [...] an overnight care home, or couch-surfing.) Yes 07/12/2023 Are you [...] Assigned at Female 09/12/2020 12:05 PM CLAY MOLDER Legal Sex Female 3:26 AM CLAY MOLDER Gender Identity Female 09/12/2020 12:05 PM CLAY MOLDER Sexual Orientation Straight 12/19/2021 10 :44 AM CDT Occupation Industry Job Start Date Job End Date on disability for FMS Not on file Not on file Not on file disabled Not on file Not on file Not on file documented as of this encounter Plan of Treatment Upcoming Encounters Date Type Department Care Team (Late st Contact Info) Description 06/13/2025 6:00 PM CLAY MOLDER Ancillary Procedure [facility] Imaging Center CT Clinic [address] [phone] Omar Carmona MD [address] [place] [address] 346915 06/14/2025 4:00 PM CLAY MOLDER Office Visit [facility] Primary Care Clinic [address]th [place] [phone] Omar Carmona MD [address] [place] [address] 35656 06/15/2025 12:45 PM CLAY MOLDER Therapy Visit [facility] Rehabilitation Services [facility] [address] [place] [address] Jason Alvares MD 420 [facility] 295 [place], [place] 101135 Chaya Castillo OTR [facility] 150 [place] [address] 06/19/2025 10:30 AM CLAY MOLDER Virtual Visit [facility] Primary [facility] Clinic [address] [place] [address] [phone] Omar Carmona MD [address] [place] [address] [phone] Gerson Santos, FORMERLY [facility] 06/26/2025 11:00 AM CLAY MOLDER Therapy Visit [facility] [address] [place] [phone] Jason Alvares MD [address] [place] [address] 405935 Chaya Castillo, OTR [facility] 150 [place] [address] 07/09/2025 12:45 PM CLAY MOLDER Therapy Visit [facility] [address] [place] [phone] Jason Alvares MD [address] [place] [address] Chaya Castillo, [facility]TR [facility] 150 [place] [address] 07/18/2025 3:00 PM CLAY MOLDER Office Visit [facility] Heart Clinic [address] [address] Adonay Chapman APRN [address] 421705 11/05/2025 12:30 PM CDT Lab [facility] Lab [address] [phone] 11/05/2025 1:45 PM CDT Office Visit [facility] Dermatology [facility] [place] [address] [place] [address] 3rd [place] [phone] Gavi Nieto PA-C Dermatology [address] [place] [address] 8[address] 11/20/2025 10:30 AM CDT Virtual Visit [address] [place] [phone] Marquise Hanley MD [address] [place] [address] 19984 documented as of this encounter Goals Goal [...] documented as of this encounter Care Teams Servicenow Administrator Relationship Specialty Start Date End Date Omar Carmona MD [address] [place] [address] 24761 PCP - General Family Medicine 07/14/24 Barry Kilpatrick MD [address] [place] [address] [id number] [place] [address] Neurology 07/19/14 Michelle Henderson I RN Nurse Coordinator Neurology 07/19/14 Rio Jaquez MD 9 [facility] 4 [place], [place] 257625 Family Practice 10/15/14 Jemima Jaramillo MD [address] [place] [address] 4 [place] [address] cafeteria director 11/20/14 Kelley Chin RN [facility] 909 [place], [place] 776075 Nurse Coordinator Cardiology 11/04/15 Sydnee Saleem MD 420 [facility] EM[facility] 508 [place], [place] 163765 Cardiology 11/04/15 Karlene Moya MD [address] [place] [address] 609495 Ophthalmology 06/24/17 Wilbert Quintero OD [address] [place] [address] 630415 Optometry 06/24/17 Rod Gauthier DPM [address] [place] [address] 864265 E Business Project Manager Primary Podiatric Medicine 06/21/18 Jan Mahmood MD [address] [place] [address] 2A [place], [place] 728605 Gastroenterology 11/05/20 Brandt Quintana MD [address] [place] [address]684 Resident 11/05/20 Jan Mahmood MD 516 [facility] [address] [place] [address] Assigned Gastroenterology Provider 12/01/20 Dom Eason MD 717 [facility] MICHAEL [address] [place] [address] Internal Medicine 12/02/20 Jaimie Vernon, RN Specialty Roofer Vinyl Coating Cardiology 10/28/21 Marquise Hanley MD [address] [place] [address] 92009 Endocrinology, Diabetes, and Metabolism 03/05/22 Vlad Ramey MD [address] [place] [address] 26721 Cardiovascular Disease 05/07/22 Joesph Crowe MD [address] [place] [address] 68003 Surgery 05/07/22 Michelle Padilla RN Specialty Roofer Vinyl Coating Cardiology 07/03/22 Marquise Hanley MD [address] [place] [address] 04582 Assigned Endocrinology Provider 08/15/22 Wagner Oliver MD [address] [place] [address] Critical Care 12/15/22 Joesph Crowe MD [address] [place] [address] 52467 Surgery 03/17/23 Adonay Haq MD [address] [place] [address] 424725 Internal Medicine 06/14/23 Ruth Riddle DPM, Podiatry/Foot and Ankle Surgery [address] [address] Assigned Musculoskeletal Provider 10/22/23 Jignesh Mathias MD [address] [place] [address] 715635 Gastroenterology 09/25/24 Omar Carmona MD [address] [place] [address] 624205 Assigned PCP 12/29/24 Jason Alvares MD [address] [place] [address] 333825 Assigned Neuroscience Provider 12/29/24 Jignesh Mathias MD [address] [place] [address] 431155 Assigned Surgical Provider 12/29/24 Ayad Lopez, PhD LP [address] [place] [address] 638335 Assigned Behavioral Health Provider 02/28/25 Gavi Nieto, PA-C [address] [place] [address] 467475 Physician Hydro Generation Manager Dermatology 03/19/25 documented as of this encounter
--- OUTSIDE RECORDS SUMMARY | 2025-06-08 22:49 | XMS_ITS | Encounter Summary ---
Author Organization [place] Address [address] [place] [address] Care Team Providers Care Flying Squad Worker Name Role Phone Barry Kilpatrick MD Unavailable Michelle Henderson RN Unavailable [phone] Rio Jaquez MD Unavailable +[phone] Jemima Jaramillo MD Unavailable Unavai Kelley Bautista RN Unavailable [phone] Sydnee Saleem MD Unavailable [phone] Karlene Moya MD Unavailable +[phone] Wilbert Quintero OD Unavailable +[phone] Rod Gauthier DPM Unavailable +[phone] Jan Mahmood MD Unavailable +[phone] Brandt Quintana MD Unavailable [phone] Jan Mahmood MD Unavailable [phone] Dom Eason MD Unavailable +[phone] Jaimie Vernon RN Unavailable Unavailable Marquise Hanley MD Unavailable +[phone] Vlad Ramey MD Unavailable [phone] Joesph Crowe MD Unavailable Michelle Padilla RN Unavailable Unavaila ble Marquise Hanley MD Unavailable +[phone] Wagner Oliver MD Unavailable + [phone] Joesph Crowe MD Unavailable +[phone] Adonay Haq MD Unavailable [phone] Ruth RiddleM, Podiatry /Foot and Ankle Surgery Unavailable Omar Carmona MD Primary Care Provider [phone] Jignesh Mathias MD Unavailable Omar Carmona MD Unavailable [phone] Jason Alvares MD Unavailable Jignesh Mathias MD Unavailable Ayad Lopez PhD LP Unavailable +[phone] Gavi Nieto PA-C Unavailable +[phone] Encounter Details Date Type Department Care Team (Latest Contact Info) Description 06/07/2025 Travel Social History Tobacco Use Types Packs/Day [...] Answer Date Recorded PHQ-2 Score 2 05/03/2025 [facility] [place] of Occupat ional Health - Occupational Stress [...] Sex Assigned at Female 09/12/2020 12:05 PM VENDING MACHINE SERVICER Legal Sex Female 3:26 AM VENDING MACHINE SERVICER Gender Identity Female 09/12/2020 12:05 PM VENDING MACHINE SERVICER Sexual Orientation Straight 12/19/2021 10 :44 AM CDT Occupation Industry Job Start Date Job End Date on disability for FMS Not on file Not on file Not on file disabled Not on file Not on file Not on file documented as of this encounter Plan of Treatment Upcoming Encounters Date Type Department Care Team (Late st Contact Info) Description 06/13/2025 6:00 PM VENDING MACHINE SERVICER Ancillary Procedure [facility] Imaging Center CT Clinic [address] [phone] Omar Carmona MD [address] [place] [address] [phone] 06/14/2025 4:00 PM VENDING MACHINE SERVICER Office Visit [facility] Primary Care Clinic [address] [phone] Omar Carmona MD [address] [place] [address] [phone] 06/15/2025 12:45 PM VENDING MACHINE SERVICER Therapy Visit [facility] Rehabilitation Services [address] [phone] Jason Alvares MD 420 [facility] 295 [place], [place] [phone] Chaya Castillo, OTR [facility] 150 [place] [address] 06/19/2025 10:30 AM VENDING MACHINE SERVICER Virtual Visit [facility] Primary Care [address] [address] Omar Carmona MD [address] [place] [address] 617675 Gerson Santos RPH 06/26/2025 11:00 AM VENDING MACHINE SERVICER Therapy Visit [facility] [place] [address]114 Jason Alvares MD [address] [place] [address] Chaya Castillo, [facility] 150 [place] [address] 07/09/2025 12:45 PM VENDING MACHINE SERVICER Therapy Visit [facility] 150 [place] [phone] Jason Alvares MD [address] [place] [address] Chaya Castillo [facility] 150 [place] [address] 07/18/2025 3:00 PM VENDING MACHINE SERVICER Office Visit [facility] Heart [address] [phone] Adonay Chapman APRN [address] [address] 11/05/2025 12:30 PM CDT Lab [facility] Lab [address] 1st [place] [phone] 11/05/2025 1:45 PM CDT Office Visit [facility] Dermatology Clinic [address] 3rd [place] [phone] Gavi Nieto PA-C Dermatology [address] [place] [address] 35205 11/20/2025 10:30 AM CDT Virtual Visit M [address] [address] Marquise Hanley MD [address] [place] [address] 15066 documented as of this encounter Goals Goal [...] documented as of this encounter Care Teams Flying Squad Worker Relationship Specialty Start Date End Date Omar Carmona MD [address] [place] [address] 60075 PCP - General Family Medicine 07/14/24 Barry Kilpatrick MD [address] [place] [address] [id number] [place] [address] Neurology 07/19/14 Michelle Henderson RN Nurse Coordinator Neurology 07/19/14 Rio Jaquez MD [address] [place] [address] Family Practice 10/15/14 Jemima Jaramillo MD [address] [place] [address] 45545 management supervisor 11/20/14 Kelley Chin, TANIA [address] [address] Nurse Coordinator Cardiology 11/04/15 Sydnee Saleem MD 420 [facility] 508 [place] [address] Cardiology 11/04/15 Karlene Moya MD 516 [place], [place] 374735 Ophthalmology 06/24/17 Wilbert Quintero OD 909 [place], [place] 864305 Optometry 06/24/17 Rod Gauthier DPM 909 [place], [place] 875155 Managing Broker Primary Podiatric Medicine 06/21/18 Jan Mahmood MD [address] [place] [address] 2A [place], [place] 788505 Gastroenterology 11/05/20 Brandt Quintana MD [address] [place] [address]84 Resident 11/05/20 Jan Mahmood MD [address] [address] Assigned Gastroenterology Provider 12/01/20 Dom Eason MD 717 [facility] 353 [place] [address] Internal Medicine 12/02/20 Jaimie Vernon, RN Specialty Education Reporter Cardiology 10/28/21 Marquise Hanley MD [address] [place] [address] 73786 Endocrinology, Diabetes, and Metabolism 03/05/22 Vlad Ramey MD [address] [place] [address] 33898 Cardiovascular Disease 05/07/22 Joesph Crowe MD [address] [place] [address] 97107 Surgery 05/07/22 Michelle Padilla RN Specialty Education Reporter Cardiology 07/03/22 Marquise Hanley MD [address] [place] [address] 92720 Assigned Endocrinology Provider 08/15/22 Wagner Oliver MD [address] [place] [address] Critical Care 12/15/22 Joesph Crowe MD [address] [place] [address] 02376 Surgery 03/17/23 Adonay Haq MD [address] [place] [address] 50343 Internal Medicine 06/14/23 Ruth Riddle DPM, Podiatry/Foot and Ankle Surgery [address] [place] [address] [place] [address]777 Assigned Musculoskeletal Provider 10/22/23 Jignesh Mathias MD [address] [place] [address] 073875 Gastroenterology 09/25/24 Omar Carmona MD [address] [place] [address] 112795 Assigned PCP 12/29/24 Jason Alvares MD [address] [place] [address] [phone] Assigned Neuroscience Provider 12/29/24 Jignesh Mathias MD [address] [place] [address] [phone] Assigned Surgical Provider 12/29/24 Ayad Lopez, PhD LP [address] [place] [address] 269105 Assigned Behavioral Health Provider 02/28/25 Gavi Nieto, PA-C [address] [place] [address] 472535 Physician Blood And Plasma Laboratory Assistant Dermatology 03/19/25 documented as of this encounter
--- OUTSIDE RECORDS SUMMARY | 2025-06-08 22:49 | XMS_ITS | Encounter Summary ---
Author Organization [facility] Address [address] [place] [address]20 Care Team Providers Care Regulatory Submissions Specialist Name Role Phone Barry Kilpatrick MD Unavailable Michelle Henderson RN Unavailable [phone] Rio Jaquez MD Unavailable +[phone] Jemima Jaramillo MD Unavailable Unavai Kelley Bautista RN Unavailable +[phone] Sydnee Saleem MD Unavailable +[phone] Karlene Moya MD Unavailable +[phone] Wilbert Quintero OD Unavailable +[phone] Rod Gauthier DPM Unavailable +[phone] Jan Mahmood MD Unavailable +[phone] Brandt Quintana MD Unavailable Jan Mahmood MD Unavailable +[phone] Dom Eason MD Unavailable +[phone] Jaimie Vernon RN Unavailable Unavailable Marquise Hanley MD Unavailable +[phone] Vlad Ramey MD Unavailable +[phone] Joesph Crowe MD Unavailable Michelle Padilla RN Unavailable Unavaila ble Marquise Hanley MD Unavailable +[phone] Wagner Oliver MD Unavailable + [phone] Joesph Crowe MD Unavailable +[phone] Adonay Haq MD Unavailable [phone] Ruth RiddleM, Podiatry /Foot and Ankle Surgery Unavailable Omar Carmona MD Primary Care Provider +[phone] Jignesh Mathias MD Unavailable Omar Carmona MD Unavailable +[phone] Jason Alvares MD Unavailable Jignesh Mathais MD Unavailable Ayad Lopez PhD LP Unavailable +[phone] Gavi Nieto PA-C Unavailable +[phone] Encounter Details Date Type Department Care Team (Latest Contact Info) Description 05/15/2025 Travel Social History Tobacco Use Types Packs/Day [...] Date Recorded PHQ-2 Score 2 05/03/2025 [facility] of Occupat ional Health - Occupational Stress [...] in an overnight longterm, or couch-surfing.) Yes 04/30/2025 Are you worried [...] Sex Assigned at Female 09/12/2020 12:05 PM FRETTED INSTRUMENT REPAIRER Legal Sex Female 3:26 AM FRETTED INSTRUMENT REPAIRER Gender Identity Female 09/12/2020 12:05 PM FRETTED INSTRUMENT REPAIRER Sexual Orientation Straight 12/19/2021 10 :44 AM CDT Occupation Industry Job Start Date Job End Date on disability for FMS Not on file Not on file Not on file disabled Not on file Not on file Not on file documented as of this encounter Plan of Treatment Upcoming Encounters Date Type Department Care Team (Late st Contact Info) Description 06/13/2025 6:00 PM FRETTED INSTRUMENT REPAIRER Ancillary Procedure [facility] Imaging Center CT Clinic [address] [phone] Omar Carmona MD [address] [place] [address] [id number] 06/14/2025 4:00 PM FRETTED INSTRUMENT REPAIRER Office Visit [facility] Primary Care Clinic [address] [address] Omar Carmona MD [address] [place] [address] [id number] 06/15/2025 12:45 PM FRETTED INSTRUMENT REPAIRER Therapy Visit [facility] Rehabilitation Services [address] [phone] Jason Alvares MD 420 [facility] 295 [place], [place] [phone] Chaya Castillo, OTR [facility] 150 [place] [address] 06/19/2025 10:30 AM FRETTED INSTRUMENT REPAIRER Virtual Visit [facility] Primary Care [address] [address] Omar Carmona MD [address] [place] [address] 165635 Gerson Santos RPH 06/26/2025 11:00 AM FRETTED INSTRUMENT REPAIRER [facility] [address] [facility] [place] [address] Jason Alvares MD [address] [place] [address] Chaya Castillo, [facility]TR [facility] 150 [place] [address] 07/09/2025 12:45 PM FRETTED INSTRUMENT REPAIRER Therapy Visit [facility] 150 [place] [address] Jason Alvares MD [address] [place] [address] Chaya Castillo OTR [facility] 150 [place] [address] 07/18/2025 3:00 PM FRETTED INSTRUMENT REPAIRER Office Visit [facility] Heart [address] [phone] Adonay Chapman APRN [address] [address] 11/05/2025 12:[address] [facility] Lab [address] 1st [place] [phone] 11/05/2025 1:45 PM CDT Office Visit [facility] Dermatology Clinic [address] 3rd [place] [phone] Gavi Nieto PA-C Dermatology [address] [place] [address] 11/20/2025 10:30 AM CDT Virtual Visit M [address] [address] Marquise Hanley MD [address] [place] [address] documented as of this encounter Goals Goal [...] documented as of this encounter Care Teams Regulatory Submissions Specialist Relationship Specialty Start Date End Date Omar Carmona MD [address] [place] [address] 8[address] PCP - General Family Medicine 07/14/24 Barry Kilpatrick MD [address] [place] [address] [id number] [place] [address] Neurology 07/19/14 Michelle Henderson RN Nurse Coordinator Neurology 07/19/14 Rio Jaquez MD [address] [place] [address] 83902 Family Practice 10/15/14 Jemima Jaramillo MD [address] [place] [address] 42508 violin repairer 11/20/14 Kelley Chin, TANIA [address] [address] Nurse Coordinator Cardiology 11/04/15 Sydnee Saleem MD 420 [facility] 508 [place] [address] Cardiology 11/04/15 Karlene Moya MD 516 [place], [place] 785505 Ophthalmology 06/24/17 Wilbert Qunitero OD 909 [place], [place] 657365 Optometry 06/24/17 Rod Gauthier DPM 909 [place], [place] 510555 Plating Technician Primary Podiatric Medicine 06/21/18 Jan Mahmood MD [address] [place] [address] 2A [place], [place] 334355 Gastroenterology 11/05/20 Brandt Quintana MD [address] [place] [address] Resident 11/05/20 Jan Mahmood MD [address] [address] Assigned Gastroenterology Provider 12/01/20 Dom Eason MD 717 [facility] 353 [place] [address] Internal Medicine 12/02/20 Jaimie Vernon, RN Specialty Pipelines Superintendent Cardiology 10/28/21 Marquise Hanley MD [address] [place] [address] Endocrinology, Diabetes, and Metabolism 03/05/22 Vlad Ramey MD [address] [place] [address] 22901 Cardiovascular Disease 05/07/22 Joesph Crowe MD [address] [place] [address] 56[address] Surgery 05/07/22 Michelle Padilla RN Specialty Pipelines Superintendent Cardiology 07/03/22 Marquise Hanley MD [address] [place] [address] 11356 Assigned Endocrinology Provider 08/15/22 Wagner Oliver MD [address] [place] [address] Critical Care 12/15/22 Joesph Crowe MD [address] [place] [address] 59909 Surgery 03/17/23 Adonay Haq MD [address] [place] [address] Internal Medicine 06/14/23 Ruth Riddle DPM, Podiatry/Foot and Ankle Surgery [address] [place] 896507 Assigned Musculoskeletal Provider 10/22/23 Jignesh Mathias MD [address] [place] [address] 907315 Gastroenterology 09/25/24 Omar Carmona MD [address] [place] [address] 826605 Assigned PCP 12/29/24 Jason Alvares MD [address] [place] [address] [phone] Assigned Neuroscience Provider 12/29/24 Jignesh Mathias MD [address] [place] [address] 108285 Assigned Surgical Provider 12/29/24 Ayad Lopez, PhD LP [address] [place] [address] 196795 Assigned Behavioral Health Provider 02/28/25 Gavi Nieto, PA-C [address] [place] [address] [phone] Physician Sports Physiotherapist Dermatology 03/19/25 documented as of this encounter
--- OUTSIDE RECORDS SUMMARY | 2025-06-08 22:49 | XMS_ITS | Encounter Summary ---
Author Organization [facility] Address [address] [place] [address] 23952 Care Team Providers Care Administration Dean Name Role Phone Barry Kilpatrick MD Unavailable Michelle Henderson RN Unavailable [phone] Rio Jaquez MD Unavailable +[phone] Jemima Jaramillo MD Unavailable Unavai Kelley Bautista RN Unavailable +[phone] Sydnee Saleem MD Unavailable [phone] Karlene Moya MD Unavailable +[phone] Wilbert Quintero OD Unavailable +[phone] Rod Gauthier DPM Unavailable +[phone] Jan Mahmood MD Unavailable +[phone] Brandt Quintana MD Unavailable Jan Mahmood MD Unavailable +[phone] Dom Eason MD Unavailable +[phone] Jaimie Vernon RN Unavailable Unavailable Marquise Hanley MD Unavailable +[phone] Vlad Ramey MD Unavailable +[phone] Joesph Crowe MD Unavailable Michelle Padilla RN Unavailable Unavaila ble Marquise Hanley MD Unavailable +[phone] Wagner Oliver MD Unavailable + [phone] Joesph Crowe MD Unavailable +[phone] Adonay Haq MD Unavailable [phone] Ruth RiddleM, Podiatry /Foot and Ankle Surgery Unavailable Omar Carmona MD Primary Care Provider [phone] Jignesh Mathias MD Unavailable Omar Carmona MD Unavailable [phone] Jason Alvares MD Unavailable Jignseh Mathias MD Unavailable Ayad Lopez PhD LP Unavailable +[phone] Gavi Nieto PA-C Unavailable +[phone] Encounter Details Date Type Department Care Team (Latest Contact Info) Description 05/14/2025 Travel Social History Tobacco Use Types Packs/Day [...] Answer Date Recorded PHQ-2 Score 2 05/03/2025 [facility] [place] of Occupat ional Health - Occupational Stress [...] Sex Assigned at Female 09/12/2020 12:05 PM ORTHOTIST/PROSTHETIST Legal Sex Female 3:26 AM ORTHOTIST/PROSTHETIST Gender Identity Female 09/12/2020 12:05 PM ORTHOTIST/PROSTHETIST Sexual Orientation Straight 12/19/2021 10 :44 AM CDT Occupation Industry Job Start Date Job End Date on disability for FMS Not on file Not on file Not on file disabled Not on file Not on file Not on file documented as of this encounter Plan of Treatment Upcoming Encounters Date Type Department Care Team (Late st Contact Info) Description 06/13/2025 6:00 PM ORTHOTIST/PROSTHETIST Ancillary Procedure [facility] Imaging Center CT Clinic [address] [phone] Omar Carmona MD [address] [place] [address] [phone] 06/14/2025 4:00 PM ORTHOTIST/PROSTHETIST Office Visit [facility] Primary Care Clinic [address] [address] Omar Carmona MD [address] [place] [address] [phone] 06/15/2025 12:45 PM ORTHOTIST/PROSTHETIST Therapy Visit [facility] Rehabilitation Services [address] [phone] Jason Alvares MD 420 [facility] 295 [place], [place] [phone] Chaya Castillo, OTR [facility] 150 [place] [address] 06/19/2025 10:30 AM ORTHOTIST/PROSTHETIST Virtual Visit [facility] Primary Care [address] [address] Omar Carmona MD [address] [place] [address] 107575 Gerson Santos RPH 06/26/2025 11:00 AM ORTHOTIST/PROSTHETIST Therapy Visit [facility] [address] [place] [address]14 Jason Alvares MD [address] [place] [address] Chaya Castillo, [facility]TR [facility] 150 [place] [address] 07/09/2025 12:45 PM ORTHOTIST/PROSTHETIST Therapy Visit [facility] 150 [place] [address] Jason Alvares MD [address] [place] [address] Chaya Castillo OTR [facility] 150 [place] [address] 07/18/2025 3:00 PM ORTHOTIST/PROSTHETIST Office Visit [facility] Heart [address] [phone] Adonay Chapman APRN [address] [address] 11/05/2025 12:30 PM CDT Lab [facility] Lab [address] 1st [place] [address] 11/05/2025 1:45 PM CDT Office Visit [facility] Dermatology Clinic [address] 3rd [place] [phone] Gavi Nieto PA-C Dermatology [address] [place] [address] 11/20/2025 10:30 AM CDT Virtual Visit M [address] [address] Marquise Hanley MD [address] [place] [address] 44077 documented as of this encounter Goals Goal [...] documented as of this encounter Care Teams Administration Dean Relationship Specialty Start Date End Date Omar Carmona MD [address] [place] [address] 56256 PCP - General Family Medicine 07/14/24 Barry Kilpatrick MD [address] [place] [address] [id number] [place] [address] Neurology 07/19/14 Michelle Henderson RN Nurse Coordinator Neurology 07/19/14 Rio Jaquez MD [address] [place] [address] Family Practice 10/15/14 Jemima Jaramillo MD [address] [place] [address] 70[address] fan installer 11/20/14 Kelley Chin, TANIA [address] [address] Nurse Coordinator Cardiology 11/04/15 Sydnee Saleem MD 420 [facility] 508 [place] [address] Cardiology 11/04/15 Karlene Moya MD 516 [place], [place] 951325 Ophthalmology 06/24/17 Wilbert Quintero OD 909 [place], [place] 666395 Optometry 06/24/17 Rod Gauthier DPM 909 [place], [place] 313365 Train System Operator Primary Podiatric Medicine 06/21/18 Jan Mahmood MD [address] [place] [address] 2A [place], [place] 621485 Gastroenterology 11/05/20 Brandt Quintana MD [address] [place] [address] Resident 11/05/20 Jan Mahmood MD [address] [address] Assigned Gastroenterology Provider 12/01/20 Dom Eason MD 717 [facility] 353 [place] [address] Internal Medicine 12/02/20 Jaimie Vernon, RN Specialty Civil Engineering Manager Cardiology 10/28/21 Marquise Hanley MD [address] [place] [address] Endocrinology, Diabetes, and Metabolism 03/05/22 Vlad Ramey MD [address] [place] [address] 48755 Cardiovascular Disease 05/07/22 Joesph Crowe MD [address] [place] [address] 38520 Surgery 05/07/22 Michelle Padilla RN Specialty Civil Engineering Manager Cardiology 07/03/22 Marquise Hanley MD [address] [place] [address] 08819 Assigned Endocrinology Provider 08/15/22 Wagner lOiver MD [address] [place] [address] Critical Care 12/15/22 Joesph Crowe MD [address] [place] [address] Surgery 03/17/23 Adonay Haq MD [address] [place] [address] Internal Medicine 06/14/23 Ruth Riddle DPM, Podiatry/Foot and Ankle Surgery [address] [place] 328[place] Assigned Musculoskeletal Provider 10/22/23 Jignesh Mathias MD [address] [place] [address] [phone] Gastroenterology 09/25/24 Omar Carmona MD [address] [place] [address] 274095 Assigned PCP 12/29/24 Jason Alvares MD [address] [place] [address] [phone] Assigned Neuroscience Provider 12/29/24 Jignesh Mathias MD [address] [place] [address] 223125 Assigned Surgical Provider 12/29/24 Ayad Lopez, PhD LP [address] [place] [address] 218025 Assigned Behavioral Health Provider 02/28/25 Gavi Nieto, PA-C [address] [place] [address] [phone] Physician Physician Underwriter Dermatology 03/19/25 documented as of this encounter
--- OUTSIDE RECORDS SUMMARY | 2025-06-08 22:49 | XMS_ITS | Encounter Summary ---
Author Organization [facility] Address [address] [place] [address] Care Team Providers Care Media Liaison Officer Name Role Phone Barry Kilpatrick MD Unavailable Michelle Henderson RN Unavailable [phone] Rio Jaquez MD Unavailable +[phone] Jemima Jaramillo MD Unavailable Unavai Kelley Bautista RN Unavailable [phone] Sydnee Saleem MD Unavailable [phone] Karlene Moya MD Unavailable [phone] Wilbert Quintero OD Unavailable +[phone] Rod Gauthier DPM Unavailable +[phone] Jan Mahmood MD Unavailable +[phone] Brandt Quintana MD Unavailable [phone] Jan Mahmood MD Unavailable [phone] Dom Eason MD Unavailable +[phone] Jaimie Vernon RN Unavailable Unavailable Marquise Hanley MD Unavailable +[phone] Vlad Ramey MD Unavailable [phone] Joesph Crowe MD Unavailable Michelle Padilla RN Unavailable Unavaila ble Marquise Hanley MD Unavailable Wagner Oliver MD Unavailable [phone] Joesph Crowe MD Unavailable [phone] Adonay Haq MD Unavailable Ruth Riddle DPM, Podiatry /Foot and Ankle Surgery Unavailable Omar Carmona MD Primary Care Provider [phone] Jignesh Mathias MD Unavailable Omar Carmona MD Unavailable Jason Alvares MD Unavailable Jignesh Mathias MD Unavailable Ayad Lopez PhD LP Unavailable [phone] Gavi Nieto PA-C Unavailable [phone] Encounter Details Date Type Department Care Team (Late st Contact Info) Description 06/06/2025 Results Follow-Up [facility] Hepatology Clinic [address] [address] Jignesh Mathias MD [address] [place] [address] Subj: Message about your results Social History Tobacco Use Types Packs/Day Years [...] Answer Date Recorded PHQ-2 Score 2 05/03/2025 [facility] of Occupat ional Health - [...] in an overnight residential, or couch-surfing.) Yes 04/30/2025 Are you worried [...] Sex Assigned at Female 09/12/2020 12:05 PM DRUPAL PROGRAMMER Legal Sex Female 3:26 AM DRUPAL PROGRAMMER Gender Identity Female 09/12/2020 12:05 PM DRUPAL PROGRAMMER Sexual Orientation Straight 12/19/2021 10 :44 AM CDT Occupation Industry Job Start Date Job End Date on disability for FMS Not on file Not on file Not on file disabled Not on file Not on file Not on file documented as of this encounter Plan of Treatment Upcoming Encounters Date Type Department Care Team (Late st Contact Info) Description 06/13/2025 6:00 PM DRUPAL PROGRAMMER Ancillary Procedure [facility] Imaging Center CT Clinic [address]st [place] [phone] Omar Carmona MD [address] [place] [address] 06/14/2025 4:00 PM DRUPAL PROGRAMMER Office Visit [facility] Care [address]th [place] [phone] Omar Carmona MD [address] [place] [address] 06/15/2025 12:45 PM DRUPAL PROGRAMMER Therapy Visit [facility] Rehabilitation Services [address] [address] Jason Alvares MD [address] [place] [address] 295 [place], [place] [address]235 Chaya Castillo OTR [facility] 150 [place] [address] 06/19/2025 10:30 AM DRUPAL PROGRAMMER Virtual Visit [facility] Primary Care [address] [place] [phone] Omar Carmona MD [address] [place] [address] 258005 Gerson Santos, [facility] 06/26/2025 11:00 AM DRUPAL PROGRAMMER Therapy Visit [address] [phone] Jason Alvares MD [address] [place] [address] 605565 Chaya Castillo, OTR [address] [address] 07/09/2025 12:45 PM DRUPAL PROGRAMMER Therapy Visit [address] [phone] Jason Alvares MD [address] [place] [address] 182515 Chaya Castillo OTR [address] [address] 07/18/2025 3:00 PM DRUPAL PROGRAMMER Office Visit [facility] Heart Clinic [address] [phone] Adonay Chapman APRN [facility] 500 [place], [place] 214165 11/05/2025 12:30 PM CDT Lab [facility] Lab [address] [place] [phone] 11/05/2025 1:45 PM CDT Office Visit [facility] Dermatology Clinic [address]rd [place] [phone] Gavi Nieto PA-C Dermatology [address] [place] [address] 11/20/2025 10:30 AM CDT Virtual Visit [address] [phone] Marquise Hanley MD [address] [place] [address] documented as of this encounter Goals Goal [...] documented as of this encounter Care Teams Media Liaison Officer Relationship Specialty Start Date End Date Omar Carmona MD [address] [place] [address]59 PCP - General Family Medicine 07/14/24 Barry Kilpatrick MD [address] [place] [address] [id number] [place] [address] Neurology 07/19/14 Michelle Henderson I, TANIA Nurse Coordinator Neurology 07/19/14 Rio Jaquez MD [address] [place] [address] FL 4 [place] [address] Family Practice 10/15/14 Jemima Jaramillo MD 9 [facility] [place] 4 [place] [address] clinical science liaison 11/20/14 Kelley Chin, TANIA [facility] 909 [place] [address] Nurse Coordinator Cardiology 11/04/15 Sydnee Saleem MD [address] [place] [address] 508 [place], [place] 921305 Cardiology 11/04/15 Karlene Moya MD [address] [place] [address] 118605 Ophthalmology 06/24/17 Wilbert Quintero OD [address] [place] [address] 785165 Optometry 06/24/17 Rod Gauthier DPM [address] [place] [address] 313015 Water Resource Engineer Primary Podiatric Medicine 06/21/18 Jan Mahmood MD [address] [place] [address] 2A [place] [address] Gastroenterology 11/05/20 Brandt Quintana MD [address] [place] [address] Resident 11/05/20 Jan Mahmood MD [address] [place] [address] 2A [place] [address] Assigned Gastroenterology Provider 12/01/20 Dom Eason MD [address] [place] [address] Internal Medicine 12/02/20 Jaimie Vernon, RN Specialty Bindery Assistant Cardiology 10/28/21 Marquise Hanley MD [address] [place] [address] Endocrinology, Diabetes, and Metabolism 03/05/22 Vlad Ramey MD [address] [place] [address]2535 Cardiovascular Disease 05/07/22 Joesph Crowe MD [address] [place] [address] 27569 MD Surgery 05/07/22 Michelle Padilla, RN Specialty Bindery Assistant Cardiology 07/03/22 Marquise Hanley MD [address] [place] [address] 00127 Assigned Endocrinology Provider 08/15/22 Wagner Oliver MD [address] [place] [address] Critical Care 12/15/22 Joesph Crowe MD [address] [place] [address] 8[address] Surgery 03/17/23 Adonay Haq MD [address] [place] [address] 9[address]51 Internal Medicine 06/14/23 Ruth Riddle DPM, Podiatry/Foot and Ankle Surgery [address] [address] Assigned Musculoskeletal Provider 10/22/23 Jignesh Mathias MD [address] [place] [address] 11595 Gastroenterology 09/25/24 Omar Carmona MD [address] [place] [address] [phone] Assigned PCP 12/29/24 Jason Alvares MD [address] [place] [address] 956515 Assigned Neuroscience Provider 12/29/24 Jignesh Mathias MD [address] [place] [address] 730675 Assigned Surgical Provider 12/29/24 Ayad Lopez, PhD LP [address] [place] [address] 067445 Assigned Behavioral Health Provider 02/28/25 Gavi Nieto PANavinC [address] [place] [address] [phone] Physician Local Combination Truck Driver Dermatology 03/19/25 documented as of this encounter
--- OUTSIDE RECORDS SUMMARY | 2025-06-08 22:49 | XMS_ITS | Encounter Summary ---
Author Organization [place] Address [address] [place] [address] 40917 Care Team Providers Care Atomic Process Engineer Name Role Phone Barry Kilpatrick MD Unavailable Michelle Henderson RN Unavailable [phone] Rio Jaquez MD Unavailable +[phone] Jemima Jaramillo MD Unavailable Unavai Kelley Bautista RN Unavailable +[phone] Sydnee Saleem MD Unavailable +[phone] Karlene Moya MD Unavailable +[phone] Wilbert Quintero OD Unavailable +[phone] Rod Gauthier DPM Unavailable +[phone] Jan Mahmood MD Unavailable +[phone] Brandt Quintana MD Unavailable Jan Mahmood MD Unavailable +[phone] Dom Eason MD Unavailable +[phone] Jaimie Vernon RN Unavailable Unavailable Marquise Hanley MD Unavailable +[phone] Vlad Ramey MD Unavailable +[phone] Joesph Crowe MD Unavailable +[phone] Michelle Padilla RN Unavailable Unavaila ble Marquise Hanley MD Unavailable +[phone] Wagner Oliver MD Unavailable + [phone] Joesph Crowe MD Unavailable +[phone] Adonay Haq MD Unavailable [phone] Ruth RiddleM, Podiatry /Foot and Ankle Surgery Unavailable Omar Carmona MD Primary Care Provider [phone] Jignesh Mathias MD Unavailable Omar Carmona MD Unavailable +[phone] Jason Alvares MD Unavailable Jignesh Mathias MD Unavailable Ayad Lopez PhD LP Unavailable +[phone] Gavi Nieto PA-C Unavailable +[phone] Encounter Details Date Type Department Care Team (Latest Contact Info) Description 06/05/2025 Travel Social History Tobacco Use Types Packs/Day [...] Answer Date Recorded PHQ-2 Score 2 05/03/2025 [facility] [place] of Occupat ional Health - Occupational Stress [...] Sex Assigned at Female 09/12/2020 12:05 PM AIRCRAFT GENERAL REPAIR MECHANIC Legal Sex Female 3:26 AM AIRCRAFT GENERAL REPAIR MECHANIC Gender Identity Female 09/12/2020 12:05 PM AIRCRAFT GENERAL REPAIR MECHANIC Sexual Orientation Straight 12/19/2021 10 :44 AM CDT Occupation Industry Job Start Date Job End Date on disability for FMS Not on file Not on file Not on file disabled Not on file Not on file Not on file documented as of this encounter Plan of Treatment Upcoming Encounters Date Type Department Care Team (Late st Contact Info) Description 06/13/2025 6:00 PM AIRCRAFT GENERAL REPAIR MECHANIC Ancillary Procedure [facility] Imaging [facility] Clinic [address] [phone] Omar Carmona MD [address] [place] [address] [phone] 06/14/2025 4:00 PM AIRCRAFT GENERAL REPAIR MECHANIC Office Visit [facility] Primary Care Clinic [address] [address] Omar Carmona MD [address] [place] [address] [phone] 06/15/2025 12:45 PM AIRCRAFT GENERAL REPAIR MECHANIC Therapy Visit [facility] Rehabilitation Services [address] [phone] Jason Alvares MD 420 [facility] 295 [place], [place] [phone] Chaya Castillo, OTR [facility] 150 [place] [address] 06/19/2025 10:30 AM AIRCRAFT GENERAL REPAIR MECHANIC Virtual Visit [facility] Primary Care [address] [address] Omar Carmona MD [address] [place] [address] 908625 Gerson Santos RPH 06/26/2025 11:00 AM AIRCRAFT GENERAL REPAIR MECHANIC Therapy [facility] [place] [address] Jason Alvares MD [address] [place] [address] 94[address] Chaya Castillo, [facility]TR [facility] 150 [place] [address] 07/09/2025 12:45 PM AIRCRAFT GENERAL REPAIR MECHANIC Therapy Visit [facility] 150 [place] [address]68[address] Jason Alvares MD [address] [place] [address] 27771 Chaya Castillo OTR [facility] 150 [place] [address] 07/18/2025 3:00 PM AIRCRAFT GENERAL REPAIR MECHANIC Office Visit [facility] Heart [address] [phone] Adonay Chapman APRN [address] [address] 11/05/2025 12:30 PM CDT Lab [facility] Lab [address] [place] [phone] 11/05/2025 1:45 PM CDT Office Visit [facility] Dermatology Clinic [address]rd [place] [phone] Gavi Nieto PA-C Dermatology [address] [place] [address] 28[address] 11/20/2025 10:30 AM CDT Virtual Visit M [address] [address] Marquise Hanley MD [address] [place] [address] 90537 documented as of this encounter Goals Goal [...] documented as of this encounter Care Teams Atomic Process Engineer Relationship Specialty Start Date End Date Omar Carmona MD [address] [place] [address] 96931 PCP - General Family Medicine 07/14/24 Barry Kilpatrick MD [address] [place] [address] [id number] [place] [address] Neurology 07/19/14 Michelle Henderson RN Nurse Coordinator Neurology 07/19/14 Rio Jaquez MD [address] [place] [address] Family Practice 10/15/14 Jemima Jaramillo MD [address] [place] [address] 03883 plant maintenance supervisor 11/20/14 Kelley Chin, TANIA [address] [address] Nurse Coordinator Cardiology 11/04/15 Sydnee Saleem MD 420 [facility] 508 [place] [address] Cardiology 11/04/15 Karlene Moya MD 516 [place], [place] 989865 Ophthalmology 06/24/17 Wilbert Quintero OD 909 [place], [place] 398075 Optometry 06/24/17 Rod Gauthier DPM 909 [place], [place] 787575 Gambling Box Person Primary Podiatric Medicine 06/21/18 Jan Mahmood MD [address] [place] [address] 2A [place], [place] 478245 Gastroenterology 11/05/20 Brandt Quintana MD [address] [place] [address] 24781 Resident 11/05/20 Jan Mahmood MD [address] [place] [address] [address] Assigned Gastroenterology Provider 12/01/20 Dom Eason MD 717 [facility] 353 [place] [address] Internal Medicine 12/02/20 Jaimie Vernon, RN Specialty In Home Aide Cardiology 10/28/21 Marquise Hanley MD [address] [place] [address] 6[address] Endocrinology, Diabetes, and Metabolism 03/05/22 Vlad Ramey MD [address] [place] [address] 52223 Cardiovascular Disease 05/07/22 Joesph Crowe MD [address] [place] [address] 76112 Surgery 05/07/22 Michelle Padilla RN Specialty In Home Aide Cardiology 07/03/22 Marquise Hanley MD [address] [place] [address] 06223 Assigned Endocrinology Provider 08/15/22 Wagner Oliver MD [address] [place] [address] Critical Care 12/15/22 Joesph Crowe MD [address] [place] [address] 91558 Surgery 03/17/23 Adonay Haq MD [address] [place] [address] 23826 Internal Medicine 06/14/23 Ruth Riddle DPM, Podiatry/Foot and Ankle Surgery [address] [place] [address] Assigned Musculoskeletal Provider 10/22/23 Jignesh Mathias MD [address] [place] [address] 969635 Gastroenterology 09/25/24 Omar Carmona MD [address] [place] [address] 084615 Assigned PCP 12/29/24 Jason Alvares MD [address] [place] [address] [phone] Assigned Neuroscience Provider 12/29/24 Jignesh Mathias MD [address] [place] [address] 445385 Assigned Surgical Provider 12/29/24 Ayad Lopez, PhD LP [address] [place] [address] 630185 Assigned Behavioral Health Provider 02/28/25 Gavi Nieto, PA-C [address] [place] [address] 620075 Physician Hosiery Bagger Dermatology 03/19/25 documented as of this encounter
--- OUTSIDE RECORDS SUMMARY | 2025-06-08 22:50 | XMS_ITS | Encounter Summary ---
Author Organization [place] Address [address] [place] [address] 15634 Care Team Providers Care Manager Etl Name Role Phone Rio Jaquez MD Primary Care Provider + [phone] Barry Kilpatrick MD Unavailable Michelle Henderson RN Unavailable [phone] Rio Jaquez MD Unavailable +[phone] Jemima Jaramillo MD Unavailable Unavai Kelley Bautista RN Unavailable +[phone] Sydnee Saleem MD Unavailable [phone] Karlene Moya MD Unavailable +[phone] Wilbert Quintero OD Unavailable +[phone] Rod Gauthier DPM Unavailable +[phone] Nallely Hogue RN Unavailable Unavailable Larisa Vargas RN Unavailable Unavailable Rio Jaquez MD Unavailable +[phone] Francisco Lott MD Unavailable +[phone] Greg Ortega MD Unavailable [phone] Jan Mahmood MD Unavailable [phone] Brandt Quintana MD Unavailable Jan Mahmood MD [...] Unavailable +[phone] Joesph Crowe MD Unavailable +[phone] Luis Arrington MD Unavailable +[phone] Michelle [...] MD Unavailable Ayad Lopez PhD LP Unavailable +[phone] Gavi Nieto-C Unavailable +[phone] Encounter Details Date Type Department Care Team (Late st Contact Info) Description 11/06/2020 [facility] Medical Advice [facility] [address] [address] Jan Mahmood MD [address] [place] [address] Social History Tobacco Use Types Packs/Day [...] Sex Assigned at Female 09/12/2020 12:05 PM COLORER Legal Sex Female 3:26 AM COLORER Gender Identity Female 09/12/2020 12:05 PM COLORER Sexual Orientation Straight 12/19/2021 10 :44 AM CDT Occupation Industry Job Start Date Job End Date on disability for FMS Not on file Not on file Not on file documented as of this encounter Plan of Treatment Upcoming Encounters Date Type Department Care Team (Late st Contact Info) Description 06/13/2025 6:00 PM COLORER Ancillary Procedure [facility] CT Clinic [address] [phone] Omar Carmona MD [address] [place] [address] 036235 06/14/2025 4:00 PM COLORER Office Visit [facility] Care [address] [address] Omar Carmona MD [address] [place] [address] 198905 06/15/2025 12:45 PM COLORER Therapy Visit [facility] 150 [place] [phone] Jason Alvares MD 420 [facility] 295 [place], [place] [phone] Chaya Castillo, OTR [facility] 150 [place], [place] 993767 06/19/2025 10:30 AM COLORER Virtual Visit [facility] Care [address] [phone] Omar Carmona MD [address] [place] [address] [phone] Gerson Santos RPH 06/26/2025 11:00 AM COLORER Therapy Visit [facility] 150 [place] [address] Jason Alvares MD [address] [place] [address] 521815 Chaya Castillo OTR [address] [address] 07/09/2025 12:45 PM COLORER Therapy Visit [facility] [address] [phone] Jason Alvares MD [address] [place] [address] 277155 Chaya Castillo OTR [address] [address] 07/18/2025 3:00 PM COLORER Office Visit [facility] Heart [address] [phone] Adonay Chapman APRN [address] 107035 11/05/2025 12:30 PM CDT Lab [facility] Lab [address] [place] [phone] 11/05/2025 1:45 PM CDT Office Visit [facility] Dermatology Clinic [address]rd [place] [phone] Gavi Nieto PA-C Dermatology [address] [place] [address] 99[address] 11/20/2025 10:30 AM CDT Virtual Visit [address] [address] Marquise Hanley MD [address] [place] [address] 27830 documented as of this encounter Goals Goal [...] Depression Total Score: 12 021 9:43 AM COLORER documented as of this encounter Care Teams Manager Etl Relationship Specialty Start Date End Date Rio Jaquez MD [address] [place] [address]61 PCP - General Family Practice 12/02/10 07/13/24 Omar Carmona MD [address] [place] [address] 41630 PCP - General Family Medicine 07/14/24 Barry Kilpatrick MD [address] [place] [address] [id number] [place] [address] Neurology 07/19/14 Michelle Henderson I, RN Nurse Coordinator Neurology 07/19/14 Rio Jaquez MD [address] [place] [address] 01892 Family Practice 10/15/14 Jemima Jaramillo MD client account assistant 11/20/14 Kelley Chin, TANIA [facility] [address] [place] [address] 217795 Nurse Coordinator Cardiology 11/04/15 Sydnee Saleem MD 420 [facility] 508 [place] [address] Cardiology 11/04/15 Karlene Moya MD [address] [place] [address] 389485 Ophthalmology 06/24/17 Wilbert Quintero, OD [address] [place] [address] 314215 Optometry 06/24/17 Rod Gauthier DPM [address] [place], [place] 557565 Tire Builder Operator Primary Podiatric Medicine 06/21/18 Nallely Hogue, RN Registered Nurse 02/20/19 11/23/22 Larisa Vargas, TANIA Specialty Client Retention Specialist Cardiology 04/18/19 03/06/22 Rio Jaquez MD [address] [place] [address] [phone] Assigned PCP 12/28/19 11/16/20 Francisco Lott MD [address] [place] [address] 88 [place] [address] Assigned Rheumatology Provider 05/31/20 12/13/21 Greg Ortega MD [address] [place] [address] 127285 Assigned Surgical Provider 06/23/20 12/06/21 Jan Mahmood MD 516 [facility] 2A [place] [address] Gastroenterology 11/05/20 Brandt Quintana MD 1414 [place] [address] Resident 11/05/20 Jan Mhamood MD 516 [facility] 2A [place] [address] Assigned Gastroenterology Provider 12/01/20 Rio Jaquez MD 909 [facility] 4 [place], [place] 966645 Assigned PCP 11/17/20 09/30/24 Dom Eason MD [address] [place] [address] 353 [place], [place] 509594 Internal Medicine 12/02/20 Jayla Plaza, RN Specialty Client Retention Specialist Hepatology 01/09/21 02/13/24 Jayla Plaza, RN Specialty Client Retention Specialist Hepatology 01/10/21 01/10/21 Sydnee Saleem MD [address] [address] Assigned Heart and Vascular Provider 02/02/21 07/24/22 Phan Coello MD Assigned Neuroscience Provider 02/21/21 11/22/21 Cristian Barragan MD 2945 [place] [address] Assigned Infectious Disease Provider 02/21/21 03/06/22 Dom Eason MD [address] [place] [address] 353 [place] [address] Assigned Nephrology Provider 04/20/21 01/02/22 Jaimie Vernon, TANIA Specialty Client Retention Specialist Cardiology 10/28/21 Ruth Riddle DPM, Podiatry/Foot and Ankle Surgery [address] [address] Assigned Musculoskeletal Provider 11/30/21 09/30/23 Luis Arrington MD [address] [place] [address] 11353 Assigned Neuroscience Provider 11/23/21 01/02/22 Jason Alvares MD [address] [place] [address] 295 [place] [address] Assigned Neuroscience Provider 01/03/22 05/15/22 Marquise Hanley MD [address] [place] [address]39 Endocrinology, Diabetes, and Metabolism 03/05/22 Vlad Ramey MD [address] [place] [address] 60681 Cardiovascular Disease 05/07/22 Joesph Crowe MD [address] [place] [address] 77075 Surgery 05/07/22 Luis Arrington MD [address] [place] [address] 96853 Assigned Neuroscience Provider 05/16/22 05/14/23 Michelle Padilla, TANIA Specialty Client Retention Specialist Cardiology 07/03/22 Vlad Ramey MD [address] [place] [address] 23924 Assigned Heart and Vascular Provider 07/25/22 05/28/23 Marquise Hanley MD [address] [place] [address] 91438 Assigned Endocrinology Provider 08/15/22 Dom Eason MD 717 [facility] 353 [place] [address] Assigned Nephrology Provider 11/28/22 02/19/23 Wagner Oliver MD [address] [place] [address] Critical Care 12/15/22 Laura Epperson NP 7 [facility] 1932 [place] [address] Assigned Nephrology Provider 02/20/23 08/30/24 Thom Taveras MD [address], R[address] [place] [address] Assigned Cancer Care Provider 02/06/23 08/20/23 Joesph Crowe MD [address] [place] [address]107 Surgery 03/17/23 Joesph Crowe MD [address] [place] [address] 80004 Assigned Surgical Provider 04/03/23 09/30/24 Adonay Haq MD [address] [place] [address] Internal Medicine 06/14/23OctoberDenilson MD [address] [facility] [address] [place] [address] Assigned Heart and Vascular Provider 05/29/23 11/28/24 Jason Alvares MD 420 [facility] 295 [place], [place] 347065 Assigned Neuroscience Provider 05/15/23 11/28/24 Ruth Riddle DPM, Podiatry/Foot and Ankle Surgery [address] [place] [address] Assigned Musculoskeletal Provider 10/22/23 Jignesh Mathias MD [address] [place] [address] Gastroenterology 09/25/24 Adonay Haq MD [address] [place] [address] 52296 Assigned PCP 10/01/24 12/28/24 Omar Carmona MD [address] [place] [address] Assigned PCP 12/29/24 Jason Alvares MD [address] [place] [address] 119155 Assigned Neuroscience Provider 12/29/24 Jignesh Mathias MD [address] [place] [address] 915705 Assigned Surgical Provider 12/29/24 Ayad Lopez, PhD LP [address] [place] [address] 026925 Assigned Behavioral Health Provider 02/28/25 Gaiv Nieto PA-C [address] [place] [address] [phone] Physician [employer] Caretaker Dermatology 03/19/25 documented as of this encounter
--- OUTSIDE RECORDS SUMMARY | 2025-06-08 22:50 | XMS_ITS | Encounter Summary ---
Author Organization [place] Address [address] [place] [address] 24649 Care Team Providers Care Licensed Physical Therapy Assistant Name Role Phone Barry Kilpatrick MD Unavailable Michelle Henderson RN Unavailable Rio Jaquez MD Unavailable [phone] Jemima Jaramillo MD Unavailable Unavai Kelley Bautista RN Unavailable [phone] Sydnee Saleem MD Unavailable [phone] Karlene Moya MD Unavailable [phone] Wilbert Quintero OD Unavailable +[phone] Rod Gauthier DPM Unavailable [phone] Jan Mahmood MD Unavailable [phone] Brandt Quintana MD Unavailable Jan Mahmood MD Unavailable [phone] Dom Eason MD Unavailable +[phone] Jaimie Vernon RN Unavailable Unavailable Marquise Hanley MD Unavailable +[phone] Vlad Ramey MD Unavailable +[phone] Joesph Crowe MD Unavailable [phone] Michelle Padilla RN Unavailable Unavaila ble Marquise Hanley MD Unavailable +[phone] Wagner Oliver MD Unavailable [phone] Joesph Crowe MD Unavailable +[phone] Adonay Haq MD Unavailable [phone] Ruth Riddle DPM, Podiatry /Foot and Ankle Surgery Unavailable Omar Carmona MD Primary Care Provider [phone] Jignesh Mathias MD Unavailable Omar Carmona MD Unavailable +[phone] Jason Alvares MD Unavailable Jignesh Mathias MD Unavailable Ayad Lopez PhD LP Unavailable [phone] Gavi Nieto PA-C Unavailable +[phone] Encounter Details Date Type Department Care Team (Late st Contact Info) Description 05/28/2025 [facility] Medical Advice [address] [phone] Chaya Castillo OTR [facility] [address] [phone] Social History Tobacco Use Types Packs/Day Years [...] Answer Date Recorded PHQ-2 Score 2 05/03/2025 [facility] Occupat ional Health - [...] Sex Assigned at Female 09/12/2020 12:05 PM FLARE BREAKER Legal Sex Female 3:26 AM FLARE BREAKER Gender Identity Female 09/12/2020 12:05 PM FLARE BREAKER Sexual Orientation Straight 12/19/2021 10 :44 AM CDT Occupation Industry Job Start Date Job End Date on disability for FMS Not on file Not on file Not on file disabled Not on file Not on file Not on file documented as of this encounter Plan of Treatment Upcoming Encounters Date Type Department Care Team (Late st Contact Info) Description 06/13/2025 6:00 PM FLARE BREAKER Ancillary Procedure [facility] Imaging Center CT Clinic [address] [phone] Omar Carmona MD [address] [place] [address] 750945 06/14/2025 4:00 PM FLARE BREAKER Office Visit [facility] Care [address] [phone] Omar Carmona MD [address] [place] [address] 620[address] 06/15/2025 12:45 PM FLARE BREAKER Therapy Visit [facility] Rehabilitation Services [address] [phone] Jason Alvares MD [address] [place] [address] 295 [place], [place] 434075 Chaya Castillo, [facility] 150 [place] [address] 06/19/2025 10:30 AM FLARE BREAKER Virtual Visit [facility] Primary Care [address] [place] [phone] Omar Carmona MD [address] [place] [address] 544235 Gerson Santos, FARZAD 06/26/2025 11:00 AM FLARE BREAKER Therapy Visit [facility] 150 [place] [phone] Jason Alvares MD [address] [place] [address] 528635 Chaya Castillo, OTR [address] [address] 07/09/2025 12:45 PM FLARE BREAKER Therapy Visit [address] [phone] Jason Alvares MD [address] [place] [address] 472685 Chaya Castillo OTMari [address] [address] 07/18/2025 3:00 PM FLARE BREAKER Office Visit [facility] Heart Clinic [address] [phone] Adonay Chapman APRN [address] 365155 11/05/2025 12:30 PM CDT Lab [facility] Lab [address] [place] [phone] 11/05/2025 1:45 PM CDT Office Visit [facility] Dermatology Clinic [address] [place] [phone] Gavi Nieto PA-C Dermatology [address] [place] [address] 16688 11/20/2025 10:30 AM CDT Virtual Visit [address] [address] Marquise Hanley MD [address] [place] [address] 83770 documented as of this encounter Goals Goal [...] as of this encounter Care Teams Licensed Physical Therapy Assistant Relationship Specialty Start Date End Date Omar Carmona MD [address] [place] [address] 94438 PCP - General Family Medicine 07/14/24 Barry Kilpatrick MD [address] [place] [address] [id number] [place] [address] Neurology 07/19/14 Michelle Henderson I, RN Nurse Coordinator Neurology 07/19/14 Rio Jaquez MD [address] [place] [address] [address] 4 [place] [address] Family Practice 10/15/14 Jemima Jaramillo MD 909 [facility] 4 [place] [address] chassis driver 11/20/14 Kelley Chin RN [facility] [address] [place] [address] 41658 Nurse Coordinator Cardiology 11/04/15 Sydnee Saleem MD [address] [place] [address] 508 [place], [place] 152855 Cardiology 11/04/15 Karlene Moya MD [address] [place] [address] Ophthalmology 06/24/17 Wilbert Quintero, OD [address] [place] [address] 649585 Optometry 06/24/17 Rod Gauthier DPM 9 [place], [place] 011235 Data Mining Analyst Primary Podiatric Medicine 06/21/18 Jan Mahmood MD [address] [place] [address] 2A [place] [address] Gastroenterology 11/05/20 Brandt Quintana MD [address] [place] [address] Resident 11/05/20 Jan Mahmood MD [address] [place] [address] Assigned Gastroenterology Provider 12/01/20 Dom Eason MD [address] [place] [address] Internal Medicine 12/02/20 Jaimie Vernon, RN Specialty [place] Cardiology 10/28/21 Marquise Hanley MD [address] [place] [address] Endocrinology, Diabetes, and Metabolism 03/05/22 Vlad Ramey MD [address] [place] [address] 23222 Cardiovascular Disease 05/07/22 Joesph Crowe MD [address] [place] [address] 85371 Surgery 05/07/22 Michelle Padilla, RN Specialty [place] Cardiology 07/03/22 Marquise Hanley MD [address] [place] [address] Assigned Endocrinology Provider 08/15/22 Wagner Oliver MD [address] [place] [address] Critical Care 12/15/22 Joesph Crowe MD [address] [place] [address] 23221 Surgery 03/17/23 Adonay Haq MD [address] [place] [address] 81129 Internal Medicine 06/14/23 Ruth Riddle DPM, Podiatry/Foot and Ankle Surgery [address] [place] [place] [address] 8[address]79 Assigned Musculoskeletal Provider 10/22/23 Jignesh Mathias MD [address] [place] [address] 295185 Gastroenterology 09/25/24 Omar Carmona MD [address] [place] [address] 353365 Assigned PCP 12/29/24 Jason Alvares MD [address] [place] [address] 955425 Assigned Neuroscience Provider 12/29/24 Jignesh Mathias MD [address] [place] [address] 236965 Assigned Surgical Provider 12/29/24 Ayad Lopez, PhD LP [address] [place] [address] 681795 Assigned Behavioral Health Provider 02/28/25 aGvi Nieto PANavinC [address] [place] [address] 832885 Physician Retort Cooler Dermatology 03/19/25 documented as of this encounter
--- OUTSIDE RECORDS SUMMARY | 2025-06-08 22:50 | XMS_ITS | Encounter Summary ---
Author Organization [facility] Address [address] [place] [address] 10572 Care Team Providers Care Regional Truck Driver Name Role Phone Barry Kilpatrick MD Unavailable Michelle Henderson RN Unavailable [phone] Rio Jaquez MD Unavailable +[phone] Jemima Jaramillo MD Unavailable Unavai Kelley Bautista RN Unavailable +[phone] Sydnee Saleem MD Unavailable +[phone] Karlene Moya MD Unavailable +[phone] Wilbert Quintero OD Unavailable +[phone] Rod Gauthier DPM Unavailable Jan Mahmood MD Unavailable +[phone] Brandt Quintana MD Unavailable Jan Mahmood MD Unavailable +[phone] Rio Jaquez MD Unavailable +[phone] Dom Eason MD Unavailable Jaimie Vernon RN Unavailable Unavailable Marquise Hanley MD Unavailable +[phone] Vlad Ramey MD Unavailable +[phone] Joesph Crowe MD Unavailable +[phone] Michelle Padilla RN Unavailable Unavaila ble Marquise Hanley MD Unavailable +[phone] Wagner Oliver MD Unavailable + [phone] Joesph Crowe MD Unavailable +[phone] Joesph Crowe MD Unavailable +[phone] Adonay Haq MD Unavailable +[phone] OctoberDenilson MD Unavailable + [phone] Jason Alvares MD Unavailable Ruth Riddle DPM, Podiatry /Foot and Ankle Surgery Unavailable Omar Carmona MD Primary Care Provider [phone] Jignesh Mathias MD Unavailable Adonay Haq MD Unavailable +[phone] Omar Carmona MD Unavailable +[phone] Jason Alvares MD Unavailable Jignesh Mathias MD Unavailable Ayad Lopez PhD LP Unavailable +[phone] Gavi Nieto PA-C Unavailable +[phone] Encounter Details Date Type Department Care Team (Late st Contact Info) Description 09/02/2024 [facility] [address] [place] [address] Lizbeth Lopes Social History Tobacco [...] any clubs o r organizations such as tenriism groups, unions, fraternal or athletic groups, or [...] Answer Date Recorded PHQ-2 Score 3 07/14/2024 [facility] of Occupat [...] Sex Assigned at Female 09/12/2020 12:05 PM GLASS ARTIST Legal Sex Female 3:26 AM GLASS ARTIST Gender Identity Female 09/12/2020 12:05 PM GLASS ARTIST Sexual Orientation Straight 12/19/2021 10 :44 AM CDT Occupation Industry Job Start Date Job End Date on disability for FMS Not on file Not on file Not on file disabled Not on file Not on file Not on file documented as of this encounter Plan of Treatment Upcoming Encounters Date Type Department Care Team (Late st Contact Info) Description 06/13/2025 6:00 PM GLASS ARTIST Ancillary Procedure [facility] [address] [place] [phone] Omar Carmona MD [address] [place] [address] 454555 06/14/2025 4:00 PM GLASS ARTIST Office Visit [facility] [address] [place] [address] Omar Carmona MD [address] [place] [address] 06/15/2025 12:45 PM GLASS ARTIST Therapy [facility] [address] [facility] [place] [phone] Jason Alvares MD [address] [place] [address] 330[address] Chaya Castillo OTR [facility] 150 [place] [address] 06/19/2025 10:30 AM GLASS ARTIST Virtual Visit [facility] [address] [place] [address] 4th [place] [phone] Omar Carmona MD [address] [place] [address] 435315 Gerson Santos [facility] 06/26/2025 11:00 AM GLASS ARTIST Therapy Visit [facility] 150 [place] [phone] Jason Alvares MD [address] [place] [address] Chaya Castillo OTR [facility] 150 [place] [address] 07/09/2025 12:45 PM GLASS ARTIST Therapy Visit [facility] 150 [place] [phone] Jason Alvares MD [address] [place] [address] 495[address] Chaya Castillo OTR FV [address] [address] 07/18/2025 3:00 PM GLASS ARTIST Office Visit [facility] [address] [phone] Adonay Chapman APRN [facility] 500 [place] [address] 11/05/2025 12:30 PM CDT Lab [facility] [address] [place] [phone] 11/05/2025 1:45 PM CDT Office Visit [facility] Dermatology [address] [place] [phone] Gavi Nieto PANavinC Dermatology [address] [place] [address] 11/20/2025 10:30 AM CDT Virtual Visit [address] [address] Marquise Hanley MD [address] [place] [address] 46427 documented as of this encounter Goals Goal [...] Noted Time PHQ-9 Depression Total Score: 10 2 024 9:34 AM GLASS ARTIST documented as of this encounter Care Teams Regional Truck Driver Relationship Specialty Start Date End Date Omar Carmona MD [address] [place] [address]49 PCP - General Family Medicine 07/14/24 Barry Kilpatrick MD [address] [place] [address] [id number] [place] [address] Neurology 07/19/14 Michelle Henderson I, TANIA Nurse Coordinator Neurology 07/19/14 Rio Jaquez MD [address] [place] [address] 4 [place], [place] 857085 Family Practice 10/15/14 Jemima Jaramillo MD [address] [place] [address] 4 [place] [address] butt sawyer 11/20/14 Kelley Chin, TANIA [address] 464945 Nurse Coordinator Cardiology 11/04/15 Sydnee Saleem MD [address] [place] [address] 508 [place], [place] 197765 Cardiology 11/04/15 Karlene Moya MD [address] [place] [address] 859495 Ophthalmology 06/24/17 Wilbert Quintero, OD [address] [place] [address] 047485 Optometry 06/24/17 Rod Gauthier DPM [address] [place] [address] 538805 Digital Pre Press Operator Primary Podiatric Medicine 06/21/18 Jan Mahmood MD 516 [facility] 2A [place] [address] Gastroenterology 11/05/20 Brandt Quintana MD 1414 [place] [address] Resident 11/05/20 Jan Mahmood MD 6 [facility] 2A [place] [address] Assigned Gastroenterology Provider 12/01/20 Rio Jaquez MD [address] [place] [address] 52409 Assigned PCP 11/17/20 09/30/24 Dom Eason MD 7 [facility] 353 [place] [address] Internal Medicine 12/02/20 Jaimie Vernon, TANIA Specialty Sandfill Operator Surface Cardiology 10/28/21 Marquise Hanley MD [address] [place] [address] 6[address] Endocrinology, Diabetes, and Metabolism 03/05/22 Vlad Ramey MD [address] [place] [address] 633905 Cardiovascular Disease 05/07/22 Joesph Crowe MD [address] [place] [address] 16938 Surgery 05/07/22 Michelle Padilla, RN Specialty Sandfill Operator Surface Cardiology 07/03/22 Marquise Hanley MD [address] [place] [address] 83763 Assigned Endocrinology Provider 08/15/22 Wagner Oliver MD [address] [place] [address] Critical Care 12/15/22 Joesph Crowe MD [address] [place] [address] 82834 Surgery 03/17/23 Joesph Crowe MD [address] [place] [address] 04469 Assigned Surgical Provider 04/03/23 09/30/24 Adonay Haq MD [address] [place] [address] 26839 Internal Medicine 06/14/23OctoberDenilson MD [address] [facility] [address] [place] [address] Assigned Heart and Vascular Provider 05/29/23 11/28/24 Jason Alvares MD [address] [place] [address] 295 [place] [address] Assigned Neuroscience Provider 05/15/23 11/28/24 Ruth Riddle DPM, Podiatry/Foot and Ankle Surgery [address] [place] [address] Assigned Musculoskeletal Provider 10/22/23 Jignesh Mathias MD [address] [place] [address] Gastroenterology 09/25/24 Adonay Haq MD [address] [place] [address] 343165 Assigned PCP 10/01/24 12/28/24 Omar Carmona MD [address] [place] [address] 865265 Assigned PCP 12/29/24 Jason Alvares MD [address] [place] [address] 169145 Assigned Neuroscience Provider 12/29/24 Jignesh Mathias MD [address] [place] [address] 614415 Assigned Surgical Provider 12/29/24 Ayad Loepz, PhD LP [address] [place] [address] 495405 Assigned Behavioral Health Provider 02/28/25 Gavi Nieto PA-C [address] [place] [address] 456985 Physician Certified Shorthand Reporter Dermatology 03/19/25 documented as of this encounter
--- OUTSIDE RECORDS SUMMARY | 2025-06-08 22:50 | XMS_ITS | Encounter Summary ---
Author Organization [facility] Address [address] [place] [address] 63548 Care Team Providers Care Server Service Assistant Name Role Phone Barry Kilpatrick MD Unavailable Michelle Henderson RN Unavailable [phone] Rio Jaquez MD Unavailable +[phone] Jemima Jaramillo MD Unavailable Unavai Kelley Bautista RN Unavailable +[phone] Sydnee Saleem MD Unavailable [phone] Karlene Moya MD Unavailable +[phone] Wilbert Quintero OD Unavailable +[phone] Rod Gauthier DPM Unavailable +[phone] Jan Mahmood MD Unavailable +[phone] Brandt Quintana MD Unavailable Jan Mahmood MD Unavailable +[phone] Dom Eason MD Unavailable +[phone] Jaimie Vernon RN Unavailable Unavailable Marquise Hanley MD Unavailable +[phone] Vlad Ramey MD Unavailable +[phone] Joesph Crowe MD Unavailable Michelle Padilla RN Unavailable Unavaila ble Marquise Hanley MD Unavailable +[phone] Wagner Oliver MD Unavailable + [phone] Joesph Crowe MD Unavailable +[phone] Adonay Haq MD Unavailable [phone] Ruth RiddleM, Podiatry /Foot and Ankle Surgery Unavailable Omar Carmona MD Primary Care Provider [phone] Jignesh Mathias MD Unavailable Omar Carmona MD Unavailable +[phone] Jason Alvares MD Unavailable Jignesh Mathias MD Unavailable Ayad Lopez PhD LP Unavailable +[phone] Gavi Nieto PA-C Unavailable +[phone] Encounter Details Date Type Department Care Team (Latest Contact Info) Description 05/31/2025 Travel Social History Tobacco Use Types Packs/Day [...] Answer Date Recorded PHQ-2 Score 2 05/03/2025 [facility] [place] of Occupat ional Health - Occupational Stress [...] Sex Assigned at Female 09/12/2020 12:05 PM ROUGH PLANER TENDER Legal Sex Female 3:26 AM ROUGH PLANER TENDER Gender Identity Female 09/12/2020 12:05 PM ROUGH PLANER TENDER Sexual Orientation Straight 12/19/2021 10 :44 AM CDT Occupation Industry Job Start Date Job End Date on disability for FMS Not on file Not on file Not on file disabled Not on file Not on file Not on file documented as of this encounter Plan of Treatment Upcoming Encounters Date Type Department Care Team (Late st Contact Info) Description 06/13/2025 6:00 PM ROUGH PLANER TENDER Ancillary Procedure [facility] [address] [phone] Omar Carmona MD [address] [place] [address] [phone] 06/14/2025 4:00 PM ROUGH PLANER TENDER Office Visit [facility] [address] [address] Omar Carmona MD [address] [place] [address] [phone] 06/15/2025 12:45 PM ROUGH PLANER TENDER Therapy Visit [facility] [address] [phone] Jason Alvares MD 420 [facility] 295 [place], [place] [phone] Chaya Castillo, OTR [facility] 150 [place] [address] 06/19/2025 10:30 AM ROUGH PLANER TENDER Virtual Visit [facility] [address] [address] Omar Carmona MD [address] [place] [address] 112555 Gerson Santos RPH 06/26/2025 11:00 AM ROUGH PLANER TENDER Therapy Visit [facility] 150 [facility] [place] [address] Jason Alvares MD [address] [place] [address] Ch[facility] Castillo, [facility]TR [facility] 150 [place] [address] 07/09/2025 12:45 PM ROUGH PLANER TENDER Therapy Visit [facility] 150 [place] [address]474014 Jason Alvares MD [address] [place] [address] Chaya Castillo [facility]TR [facility] 150 [place] [address] 07/18/2025 3:00 PM ROUGH PLANER TENDER Office Visit [facility] [address] [phone] Adonay Chapamn APRN [address] [address] 11/05/2025 12:30 PM CDT Lab [facility] [address] [place] [phone] 11/05/2025 1:45 PM CDT Office Visit [facility] [address] 3rd [place] [phone] Gavi Nieto PA-C Dermatology [address] [place] [address] 76[address] 11/20/2025 10:30 AM CDT Virtual Visit M [address] [address] Marquise Hanley MD [address] [place] [address] 23344 documented as of this encounter Goals Goal [...] documented as of this encounter Care Teams Server Service Assistant Relationship Specialty Start Date End Date Omar Carmona MD [address] [place] [address] 12602 PCP - General Family Medicine 07/14/24 Barry Kilpatrick MD [address] [place] [address] [id number] [place] [address] Neurology 07/19/14 Michelle Henderson RN Nurse Coordinator Neurology 07/19/14 Rio Jaquez MD [address] [place] [address] 97[address] Family Practice 10/15/14 Jemima Jaramillo MD [address] [place] [address] 6[address] butcher supervisor 11/20/14 Kelley Chin, TANIA [address] [address] Nurse Coordinator Cardiology 11/04/15 Sydnee Saleem MD 420 [facility] 508 [place] [address] Cardiology 11/04/15 Karlene Moya MD 516 [place], [place] 368415 Ophthalmology 06/24/17 Wilbert Quintero OD 909 [place], [place] 290775 Optometry 06/24/17 Rod Gauthier DPM 909 [place], [place] 133055 Cabin Furnishings Installer Primary Podiatric Medicine 06/21/18 Jan Mahmood MD [address] [place] [address] 2A [place], [place] 113585 Gastroenterology 11/05/20 Brandt Quintana MD [address] [place] [address] Resident 11/05/20 Jan Mahmood MD [address] [address] Assigned Gastroenterology Provider 12/01/20 Dom Eason MD 717 [facility] 353 [place] [address] Internal Medicine 12/02/20 Jaimie Vernon, RN Specialty Barometers Calibrator Cardiology 10/28/21 Marquise Hanley MD [address] [place] [address] 26694 Endocrinology, Diabetes, and Metabolism 03/05/22 Vlad Ramey MD [address] [place] [address] 36490 Cardiovascular Disease 05/07/22 Joesph Crowe MD [address] [place] [address] 04375 Surgery 05/07/22 Michelle Padilla RN Specialty Barometers Calibrator Cardiology 07/03/22 Marquise Hanley MD [address] [place] [address] 95885 Assigned Endocrinology Provider 08/15/22 Wagner Oliver MD [address] [place] [address] Critical Care 12/15/22 Joesph Crowe MD [address] [place] [address] 55890 Surgery 03/17/23 Adonay Haq MD [address] [place] [address] 42521 Internal Medicine 06/14/23 Ruth Riddle DPM, Podiatry/Foot and Ankle Surgery [address] [place] 730707 Assigned Musculoskeletal Provider 10/22/23 Jignesh Mathias MD [address] [place] [address] 542335 Gastroenterology 09/25/24 Omar Carmona MD [address] [place] [address] 871645 Assigned PCP 12/29/24 Jason Alvares MD [address] [place] [address] [phone] Assigned Neuroscience Provider 12/29/24 Jignesh Mathias MD [address] [place] [address] 926205 Assigned Surgical Provider 12/29/24 Ayad Lopez, PhD LP [address] [place] [address] 529185 Assigned Behavioral Health Provider 02/28/25 Gavi Nieto, PA-C [address] [place] [address] 788495 Physician Eggs Inspector Dermatology 03/19/25 documented as of this encounter
--- OUTSIDE RECORDS SUMMARY | 2025-06-08 22:50 | XMS_ITS | Encounter Summary ---
Author Organization [facility] Address [address] [place] [address] Care Team Providers Care Grease Refining Supervisor Name Role Phone Barry Kilpatrick MD Unavailable Michelle Henderson RN Unavailable [phone] Rio Jaquez MD Unavailable +[phone] Jemima Jaramillo MD Unavailable Unavai Kelley Bautista RN Unavailable [phone] Sydnee Saleem MD Unavailable [phone] Karlene Moya MD Unavailable +[phone] Wilbert Quintero OD Unavailable +[phone] Rod Gauthier DPM Unavailable +[phone] Jan Mahmood MD Unavailable +[phone] Brandt Quintana MD Unavailable Jan Mahmood MD Unavailable +[phone] Dom Eason MD Unavailable +[phone] Jaimie Vernon RN Unavailable Unavailable Marquise Hanley MD Unavailable +[phone] Vlad Ramey MD Unavailable +[phone] Joesph Crowe MD Unavailable Michelle Padilla RN Unavailable Unavaila ble Marquise Hanley MD Unavailable +[phone] Wagner Oliver MD Unavailable [phone] Joesph Crowe MD Unavailable [phone] Adonay Haq MD Unavailable OctoberDenilson MD Unavailable [phone] Jason Alvares MD Unavailable Ruth Riddle DPM, Podiatry /Foot and Ankle Surgery Unavailable Omar Carmona MD Primary Care Provider [phone] Jignesh Mathias MD Unavailable Adonay Haq MD Unavailable [phone] Omar Carmona MD Unavailable +[phone] Jason Alvares MD Unavailable Jignesh Mathias MD Unavailable Ayad Lopez PhD LP Unavailable +[phone] Gavi Nieto-Keisha Unavailable +[phone] Encounter Details Date Type Department Care Team (Late st Contact Info) Description 10/27/2024 [facility] [address] [address] Omar Carmona MD [address] [place] [address] Social History Tobacco Use Types Packs/Day [...] Answer Date Recorded PHQ-2 Score 3 07/14/2024 [facility] of Occupat ional Health [...] Sex Assigned at Female 09/12/2020 12:05 PM ENTRY SPECIALIST Legal Sex Female 3:26 AM ENTRY SPECIALIST Gender Identity Female 09/12/2020 12:05 PM ENTRY SPECIALIST Sexual Orientation Straight 12/19/2021 10 :44 AM CDT Occupation Industry Job Start Date Job End Date on disability for FMS Not on file Not on file Not on file disabled Not on file Not on file Not on file documented as of this encounter Plan of Treatment Upcoming Encounters Date Type Department Care Team (Late st Contact Info) Description 06/13/2025 6:00 PM ENTRY SPECIALIST Ancillary Procedure [facility] [address] [place] [phone] Omar Carmona MD [address] [place] [address] 850075 06/14/2025 4:00 PM ENTRY SPECIALIST Office Visit [facility] [address] [place] [address] Omar Carmona MD [address] [place] [address] 06/15/2025 12:45 PM ENTRY SPECIALIST Therapy Visit [facility] 150 [place] [phone] Jason Alvares MD [address] [place] [address] Chaya Castillo OTR [facility] 150 [place] [address] 06/19/2025 10:30 AM ENTRY SPECIALIST Virtual Visit [facility] [address] [place] [address] 4th [place] [phone] Omar Carmona MD [address] [place] [address] 156145 Gerson Santos [facility] 06/26/2025 11:00 AM ENTRY SPECIALIST Therapy Visit [address] [phone] Jason Alvares MD [address] [place] [address] Chaya Castillo OTR [facility] 150 [place] [address] 07/09/2025 12:45 PM ENTRY SPECIALIST Therapy Visit [facility] 150 [place] [phone] Jason Alvares MD [address] [place] [address] Chaya Castillo OTR [facility] 150 [place] [address] 07/18/2025 3:00 PM ENTRY SPECIALIST Office [facility] [address] [phone] Adonay Chapman APRN [facility] 500 [place] [address] 11/05/2025 12:30 PM CDT Lab [facility] [address] [place] [phone] 11/05/2025 1:45 PM CDT Office [facility] [address]rd [place] [phone] Gavi Nieto PAJimmy Dermatology [address] [place] [address] [phone] 11/20/2025 10:30 AM CDT Virtual Visit [address] [address] Marquise Hanley MD [address] [place] [address] 948145 documented as of this encounter Goals Goal [...] Depression Total Score: 10 024 9:34 AM ENTRY SPECIALIST documented as of this encounter Care Teams Grease Refining Supervisor Relationship Specialty Start Date End Date Omar Carmona MD [address] [place] [address] 76547 PCP - General Family Medicine 07/14/24 Barry Kilpatrick MD [address] [place] [address] [id number] [place] [address] Neurology 07/19/14 Michelle Henderson I, TANIA Nurse Coordinator Neurology 07/19/14 Rio Jaquez MD [address] [place] [address] 4 [place], [place] 069915 Family Practice 10/15/14 Jemima Jaramillo MD [address] [place] [address] 4 [place] [address] netbackup administrator 11/20/14 Kelley Chin RN [address] 744105 Nurse Coordinator Cardiology 11/04/15 Sydnee Saleem MD [address] [place] [address] 508 [place], [place] 378945 Cardiology 11/04/15 Karlene Moya MD [address] [place] [address] 135465 Ophthalmology 06/24/17 Wilbert Quintero, OD [address] [place] [address] [phone] Optometry 06/24/17 Rod Gauthier DPM [address] [place] [address] 734505 Precision Lathe Operator Primary Podiatric Medicine 06/21/18 Jan Mahmood MD 516 [facility] 2A [place] [address] MD Gastroenterology 11/05/20 Brandt Quintana MD [address] [place] [address] 37840 Resident 11/05/20 Jan Mahmood MD 6 [facility] 2A [place] [address] Assigned Gastroenterology Provider 12/01/20 Dom Eason MD [address] [place] [address] 80197 Internal Medicine 12/02/20 Jaimie Vernon, RN Specialty Shipping Lead Person Cardiology 10/28/21 Marquise Hanley MD [address] [place] [address] [phone] Endocrinology, Diabetes, and Metabolism 03/05/22 Vlad Ramey MD [address] [place] [address] 80063 Cardiovascular Disease 05/07/22 Joesph Crowe MD [address] [place] [address] 22265 Surgery 05/07/22 Michelle Padilla RN Specialty Shipping Lead Person Cardiology 07/03/22 Marquise Hanley MD [address] [place] [address] 08087 Assigned Endocrinology Provider 08/15/22 Wagner Oliver MD [address] [place] [address] Critical Care 12/15/22 Joesph Crowe MD [address] [place] [address] [phone] Surgery 03/17/23 Adonay Haq MD [address] [place] [address] 045165 Internal Medicine 06/14/23OctoberDenilson MD [address] [facility] [address] [place] [address] Assigned Heart and Vascular Provider 05/29/23 11/28/24 Jason Alvares MD [address] [place] [address] 675765 Assigned Neuroscience Provider 05/15/23 11/28/24 Ruth Riddle DPM, Podiatry/Foot and Ankle Surgery [address] [place] [address] [place] [address] 7[address] Assigned Musculoskeletal Provider 10/22/23 Jignesh Mathias MD [address] [place] [address] 768275 Gastroenterology 09/25/24 Adonay Haq MD [address] [place] [address] 875435 Assigned PCP 10/01/24 12/28/24 Omar Carmona MD [address] [place] [address]455 Assigned PCP 12/29/24 Jason Alvares MD [address] [place] [address] Assigned Neuroscience Provider 12/29/24 Jignesh Mathias MD [address] [place] [address] Assigned Surgical Provider 12/29/24 Ayad Lopez, PhD LP [address] [place] [address] Assigned Behavioral Health Provider 02/28/25 Gavi Nieto PA-C [address] [place] [address] [phone] Physician Call Out Clerk Dermatology 03/19/25 documented as of this encounter
--- OUTSIDE RECORDS SUMMARY | 2025-06-08 22:50 | XMS_ITS | Encounter Summary ---
Author Organization [place] Address [address] [place] [address] 25813 Care Team Providers Care Billing Coordinator Name Role Phone Barry Kilpatrick MD Unavailable Michelle Henderson RN Unavailable [phone] Rio Jaquez MD Unavailable +[phone] Jemima Jaramillo MD Unavailable Unavai Kelley Bautista RN Unavailable +[phone] Sydnee Saleem MD Unavailable [phone] Karlene Moya MD Unavailable +[phone] Wilbert Quintero OD Unavailable +[phone] Rod Gauthier DPM Unavailable +[phone] Jan Mahmood MD Unavailable +[phone] Brandt Quintana MD Unavailable [phone] Jan Mahmood MD Unavailable [phone] Dom Eason MD Unavailable +[phone] Jaimie Vernon RN Unavailable Unavailable Marquise Hanley MD Unavailable +[phone] Vlad Ramey MD Unavailable +[phone] Joesph Crowe MD Unavailable [phone] Michelle Padilla RN Unavailable Unavaila ble Marquise Hanley MD Unavailable +[phone] Wagner Oliver MD Unavailable +[phone] Joesph Crowe MD Unavailable +[phone] Adonay Haq MD Unavailable Ruth Riddle DPM, Podiatry /Foot and Ankle Surgery Unavailable Omar Carmona MD Primary Care Provider [phone] Jignesh Mathias MD Unavailable Omar Carmona MD Unavailable Jason Alvares MD Unavailable Jignesh Mathias MD Unavailable Ayad Lopez PhD LP Unavailable Gavi Nieto PA-C Unavailable [phone] Encounter Details Date Type Department Care Team (Late st Contact Info) Description 05/28/2025 [facility] [address] [address] Jignesh Mathias MD [address] [place] [address] Alcoholic cirrhosis of liver without ascites [...] Answer Date Recorded PHQ-2 Score 2 05/03/2025 [facility] - Occupational Stress Questionnaire [...] in an abandoned building, in an overnight chcf, or couch-surfing.) Yes 04/30/2025 Are you worried [...] Sex Assigned at Female 09/12/2020 12:05 PM GROVE SUPERINTENDENT Legal Sex Female 3:26 AM GROVE SUPERINTENDENT Gender Identity Female 09/12/2020 12:05 PM GROVE SUPERINTENDENT Sexual Orientation Straight 12/19/2021 10 :44 AM CDT Occupation Industry Job Start Date Job End Date on disability for FMS Not on file Not on file Not on file disabled Not on file Not on file Not on file documented as of this encounter Plan of Treatment Upcoming Encounters Date Type Department Care Team (Late st Contact Info) Description 06/13/2025 6:00 PM GROVE SUPERINTENDENT Ancillary Procedure [facility] CT Clinic [address] [place] [phone] Omar Carmona MD [address] [place] [address] 416[address] 06/14/2025 4:00 PM GROVE SUPERINTENDENT Office Visit [facility] Primary Care [address] [place] [phone] Omar Carmona MD [address] [place] [address] 446065 06/15/2025 12:45 PM GROVE SUPERINTENDENT Therapy Visit [facility] Rehabilitation Services [address] [phone] Jason Alvares MD 420 [facility] 295 [place], [place] 913285 Chaya Castillo OTR FV [address] [address] 06/19/2025 10:30 AM GROVE SUPERINTENDENT Virtual Visit [facility] Primary [facility] Clinic [address] [place] [address] 4th [place] [phone] Omar Carmona MD [address] [place] [address] [phone] Gerson Santos, [facility] 06/26/2025 11:00 AM GROVE SUPERINTENDENT Therapy Visit [facility] 150 [place] [phone] Jason Alvares MD [address] [place] [address] [phone] Chaya Castillo, OTR [address] [address] 07/09/2025 12:45 PM GROVE SUPERINTENDENT Therapy Visit [facility] 150 [place] [phone] Jason Alvares MD [address] [place] [address] [phone] Chaya Castillo, OTR [address] [address] 07/18/2025 3:00 PM GROVE SUPERINTENDENT Office Visit [facility] Heart [facility] [address] [phone] Adonay Chapman APRN [address] 020285 11/05/2025 12:30 PM CDT Lab [facility] Lab [address] [place] [phone] 11/05/2025 1:45 PM CDT Office Visit [facility] Dermatology Clinic [address] [place] [phone] Gavi Nieto PA-C Dermatology [address] [place] [address] 11/20/2025 10:30 AM CDT Virtual Visit [address] [place] [phone] Marquise Hanley MD [address] [place] [address]58 documented as of this encounter Goals Goal [...] documented as of this encounter Care Teams Billing Coordinator Relationship Specialty Start Date End Date Omar Carmona MD [address] [place] [address] [phone] PCP - General Family Medicine 07/14/24 Barry Kilpatrick MD [address] [place] [address] [id number] [place], [place] 201495 Neurology 07/19/14 Michelle Henderson I, RN Nurse Coordinator Neurology 07/19/14 Rio Jaquez MD [address] [place] [address] [address] 4 [place], [place] [phone] Family Practice 10/15/14 Jemima Jaramillo MD 9 [facility] 4 [place] [address] ophthalmic photographer 11/20/14 Kelley Chin RN [facility] 909 [place], [place] 743885 Nurse Coordinator Cardiology 11/04/15 Sydnee Saleem MD [address] [place] [address] 508 [place], [place] 739595 Cardiology 11/04/15 Karlene Moya MD [address] [place] [address] [phone] Ophthalmology 06/24/17 Wilbert Quintero, OD [address] [place] [address] 637255 Optometry 06/24/17 Rod Gauthier DPM [address] [place] [address] 932435 Senior Sales Compensation Analyst Primary Podiatric Medicine 06/21/18 Jan Mahmood MD [address] [place] [address] Gastroenterology 11/05/20 Brandt Quintana MD [address] [place] [address]604 Resident 11/05/20 Jan Mahmood MD [address] [place] [address] [phone] Assigned Gastroenterology Provider 12/01/20 Dom Eason MD [address] [place] [address]164 Internal Medicine 12/02/20 Jaimie Vernon, RN Specialty Roll Forger Cardiology 10/28/21 Marquise Hanley MD [address] [place] [address] 79137 Endocrinology, Diabetes, and Metabolism 03/05/22 Vlad Ramey MD [address] [place] [address] 13703 Cardiovascular Disease 05/07/22 Joesph Crowe MD [address] [place] [address] 67088 MD Surgery 05/07/22 Michelle Padilla, RN Specialty Roll Forger Cardiology 07/03/22 Marquise Hanley MD [address] [place] [address] 11769 Assigned Endocrinology Provider 08/15/22 Wagner Oliver MD [address] [place] [address] Critical Care 12/15/22 Joesph Crowe MD [address] [place] [address] 07729 Surgery 03/17/23 Adonay Haq MD [address] [place] [address] 30410 Internal Medicine 06/14/23 Ruth Riddle DPM, Podiatry/Foot and Ankle Surgery [address] [place] [address] Assigned Musculoskeletal Provider 10/22/23 Jignesh Mathias MD [address] [place] [address] 9[address] Gastroenterology 09/25/24 Omar Carmona MD [address] [place] [address] 05622 Assigned PCP 12/29/24 Jason Alvares MD [address] [place] [address] 31384 Assigned Neuroscience Provider 12/29/24 Jignesh Mathias MD [address] [place] [address] 58279 Assigned Surgical Provider 12/29/24 Ayad Lopez, PhD LP [address] [place] [address] 88585 Assigned Behavioral Health Provider 02/28/25 Gavi Nieto PA-C [address] [place] [address] 909875 Physician Education Associate Dermatology 03/19/25 documented as of this encounter
--- OUTSIDE RECORDS SUMMARY | 2025-06-08 22:50 | XMS_ITS | Encounter Summary ---
Author Organization [place] Address [address] [place] [address] Care Team Providers Care Brake Liner Name Role Phone Barry Kilpatrick MD Unavailable Michelle Henderson RN Unavailable [phone] Rio Jaquez MD Unavailable [phone] Jemima Jaramillo MD Unavailable Unavai Kelley Bautista RN Unavailable [phone] Sydnee Saleem MD Unavailable [phone] Karlene Moya MD Unavailable [phone] Wilbert Quintero OD Unavailable +[phone] Rod Gauthier DPM Unavailable [phone] Jan Mahmood MD Unavailable [phone] Brandt Quintana MD Unavailable Jan Mahmood MD Unavailable [phone] Dom Eason MD Unavailable +[phone] Jaimie Vernon RN Unavailable Unavailable Marquise Hanley MD Unavailable +[phone] Vlad Ramey MD Unavailable [phone] Joesph Crowe MD Unavailable Michelle Padilla RN Unavailable Unavaila ble Marquise Hanley MD Unavailable +[phone] Wagner Oliver MD Unavailable + [phone] Joesph Crowe MD Unavailable +[phone] Adonay Haq MD Unavailable [phone] Ruth Riddle DPM, Podiatry /Foot and Ankle Surgery Unavailable Omar Carmona MD Primary Care Provider [phone] Jignesh Mathias MD Unavailable Omar Carmona MD Unavailable [phone] Jason Alvares MD Unavailable Jignesh Mathias MD Unavailable Ayad Lopez PhD LP Unavailable [phone] Gavi Nieto PA-C Unavailable [phone] Encounter Details Date Type Department Care Team (Latest Contact Info) Description 05/27/2025 Travel Social History Tobacco Use Types Packs/Day [...] Answer Date Recorded PHQ-2 Score 2 05/03/2025 [facility] of Occupat ional Health - Occupational Stress [...] Sex Assigned at Female 09/12/2020 12:05 PM ROUTE SPECIALIST Legal Sex Female 3:26 AM ROUTE SPECIALIST Gender Identity Female 09/12/2020 12:05 PM ROUTE SPECIALIST Sexual Orientation Straight 12/19/2021 10 :44 AM CDT Occupation Industry Job Start Date Job End Date on disability for FMS Not on file Not on file Not on file disabled Not on file Not on file Not on file documented as of this encounter Plan of Treatment Upcoming Encounters Date Type Department Care Team (Late st Contact Info) Description 06/13/2025 6:00 PM ROUTE SPECIALIST Ancillary Procedure [facility] Imaging Center CT Clinic [address] [phone] Omar Carmona MD [address] [place] [address] [phone] 06/14/2025 4:00 PM ROUTE SPECIALIST Office Visit [facility] Primary Care Clinic [address] [address] Omar Carmona MD [address] [place] [address] [phone] 06/15/2025 12:45 PM ROUTE SPECIALIST Therapy Visit [facility] Rehabilitation Services [address] [phone] Jason Alvares MD 420 [facility] 295 [place], [place] [phone] Chaya Castillo, OTR [facility] 150 [place] [address] 06/19/2025 10:30 AM ROUTE SPECIALIST Virtual Visit [facility] Primary Care [address] [address] Omar Carmona MD [address] [place] [address] 961285 Gerson Santos RPH 06/26/2025 11:00 AM ROUTE SPECIALIST Therapy Visit [facility] [address] [facility] [place] [address]627814 Jason Alvares MD [address] [place] [address] [facility], [facility] 150 [place] [address] 07/09/2025 12:45 PM ROUTE SPECIALIST Therapy Visit [facility] 150 [place] [address] Jason Alvares MD [address] [place] [address] Ch[facility] Castillo [facility] 150 [place] [address] 07/18/2025 3:00 PM ROUTE SPECIALIST Office Visit [facility] Heart [address] [phone] Adonay Chapman APRN [address] [address] 11/05/2025 12:30 PM CDT Lab [facility] Lab [address] [place] [address] 11/05/2025 1:45 PM CDT Office Visit [facility] Dermatology Clinic [address]rd [place] [phone] Gavi Nieto PA-C Dermatology [address] [place] [address] 11/20/2025 10:30 AM CDT Virtual Visit M [address] [address] Marquise Hanley MD [address] [place] [address] 19572 documented as of this encounter Goals Goal [...] documented as of this encounter Care Teams Brake Liner Relationship Specialty Start Date End Date Omar Carmona MD [address] [place] [address] 44370 PCP - General Family Medicine 07/14/24 Barry Kilpatrick MD [address] [place] [address] [id number] [place] [address] Neurology 07/19/14 Michelle Henderson RN Nurse Coordinator Neurology 07/19/14 Rio Jaquez MD [address] [place] [address] Family Practice 10/15/14 Jemima Jaramillo MD [address] [place] [address] 76266 supervisor calibration 11/20/14 Kelley Chin, TANIA [address] [address] Nurse Coordinator Cardiology 11/04/15 Sydnee Saleem MD 420 [facility] 508 [place] [address] Cardiology 11/04/15 Karlene Moya MD 516 [place], [place] 679095 Ophthalmology 06/24/17 Wilbert Quintero OD 909 [place], [place] 242935 Optometry 06/24/17 Rod Gauthier DPM 909 [place], [place] 361025 Fermenter Helper Primary Podiatric Medicine 06/21/18 Jan Mahmood MD [address] [place] [address] 2A [place], [place] 272815 Gastroenterology 11/05/20 Brandt Quintana MD [address] [place] [address] Resident 11/05/20 Jan Mahmood MD [address] [address] Assigned Gastroenterology Provider 12/01/20 Dom Eason MD 717 [facility] 353 [place] [address] Internal Medicine 12/02/20 Jaimie Vernon, RN Specialty Latex Fashions Designer Cardiology 10/28/21 Marquise Hanley MD [address] [place] [address] Endocrinology, Diabetes, and Metabolism 03/05/22 Vlad Ramey MD [address] [place] [address] 72097 Cardiovascular Disease 05/07/22 Joesph Crowe MD [address] [place] [address] 03238 Surgery 05/07/22 Michelle Padilla RN Specialty Latex Fashions Designer Cardiology 07/03/22 Marquise Hanley MD [address] [place] [address] 75917 Assigned Endocrinology Provider 08/15/22 Wagner Oliver MD [address] [place] [address] Critical Care 12/15/22 Joesph Crowe MD [address] [place] [address] 14048 Surgery 03/17/23 Adonay Haq MD [address] [place] [address]47 Internal Medicine 06/14/23 Ruth Riddle DPM, Podiatry/Foot and Ankle Surgery [address] [place] 958437 Assigned Musculoskeletal Provider 10/22/23 Jignesh Mathias MD [address] [place] [address] 190515 Gastroenterology 09/25/24 Omar Carmona MD [address] [place] [address] 524615 Assigned PCP 12/29/24 Jason Alvares MD [address] [place] [address] [phone] Assigned Neuroscience Provider 12/29/24 Jignesh Mathias MD [address] [place] [address] 616595 Assigned Surgical Provider 12/29/24 Ayad Lopez, PhD LP [address] [place] [address] 745205 Assigned Behavioral Health Provider 02/28/25 Gavi Nieto, PA-C [address] [place] [address] [phone] Physician Continuous Towel Roller Dermatology 03/19/25 documented as of this encounter
--- OUTSIDE RECORDS SUMMARY | 2025-06-08 22:50 | XMS_ITS | Encounter Summary ---
Author Organization [place] Address [address] [place] [address] Care Team Providers Care Journeyman Electrician Name Role Phone Barry Kilpatrick MD Unavailable Michelle Henderson RN Unavailable [phone] Rio Jaquez MD Unavailable [phone] Jemima Jaramillo MD Unavailable Unavai Kelley Bautista RN Unavailable [phone] Sydnee Saleem MD Unavailable [phone] Karlene Moya MD Unavailable +[phone] Wilbert Quintero OD Unavailable +[phone] Rod Gauthier DPM Unavailable [phone] Jan Mahmood MD Unavailable [phone] Brandt Quintana MD Unavailable Jan Mahmood MD Unavailable [phone] Dom Eason MD Unavailable +[phone] Jaimie Vernon RN Unavailable Unavailable Marquise Hanley MD Unavailable +[phone] Vlad Ramey MD Unavailable [phone] Joesph Crowe MD Unavailable Michelle Padilla RN Unavailable Unavaila ble Marquise Hanley MD Unavailable +[phone] Wagner Oliver MD Unavailable [phone] Joesph Crowe MD Unavailable Adonay Haq MD Unavailable OctoberDenilson MD Unavailable [phone] Jason Alvares MD Unavailable Ruth Riddle DPM, Podiatry /Foot and Ankle Surgery Unavailable Omar Carmona MD Primary Care Provider [phone] Jignesh Mathias MD Unavailable Adonay Haq MD Unavailable [phone] Omar Carmona MD Unavailable Jason Alvares MD Unavailable Jignesh Mathias MD Unavailable Ayad Lopez PhD LP Unavailable [phone] Gavi Nieto-Keisha Unavailable [phone] Encounter Details Date Type Department Care Team (Late st Contact Info) Description 11/03/2024 [facility] Primary Care Clinic [address] [address] Omar Carmona MD [address] [place] [address] Social History Tobacco Use Types Packs/Day [...] than three times a week 08/27/2021 Attends [employer] Not on file 08/27 Do you [...] Answer Date Recorded PHQ-2 Score 3 07/14/2024 [facility] of Occupat ional [...] Sex Assigned at Female 09/12/2020 12:05 PM CATTLE MANAGER Legal Sex Female 3:26 AM CATTLE MANAGER Gender Identity Female 09/12/2020 12:05 PM CATTLE MANAGER Sexual Orientation Straight 12/19/2021 10 :44 AM CDT Occupation Industry Job Start Date Job End Date on disability for FMS Not on file Not on file Not on file disabled Not on file Not on file Not on file documented as of this encounter Plan of Treatment Upcoming Encounters Date Type Department Care Team (Late st Contact Info) Description 06/13/2025 6:00 PM CATTLE MANAGER Ancillary Procedure [facility] Imaging Center CT Clinic [address] [place] [phone] Omar Carmona MD [address] [place] [address] 736405 06/14/2025 4:00 PM CATTLE MANAGER Office Visit [facility] Primary Care Clinic [address] [place] [address] Omar Carmona MD [address] [place] [address] 06/15/2025 12:45 PM CATTLE MANAGER Therapy Visit [facility] 150 [place] [phone] Jason Alvares MD [address] [place] [address] Chaya Castillo OTR [facility] 150 [place] [address] 06/19/2025 10:30 AM CATTLE MANAGER Virtual Visit [facility] Primary Care Clinic [address] [place] [address] 4th [place] [phone] Omar Carmona MD [address] [place] [address] [phone] Gerson Santos [facility] 06/26/2025 11:00 AM CATTLE MANAGER Therapy Visit [address] [phone] Jason Alvares MD [address] [place] [address] Chaya Castillo OTR [facility] 150 [place] [address] 07/09/2025 12:45 PM CATTLE MANAGER Therapy Visit [facility] 150 [place] [phone] Jason Alvares MD [address] [place] [address] Chaya Castillo OTR [facility] 150 [place] [address] 07/18/2025 3:00 PM CATTLE MANAGER Office Visit [facility] Heart [address] [phone] Adonay Chapman APRN [facility] 500 [place] [address] 11/05/2025 12:30 PM CDT Lab [facility] Lab [address] [place] [phone] 11/05/2025 1:45 PM CDT Office Visit [facility] Dermatology [address] [place] [phone] Gavi Nieto PAJimmy Dermatology [address] [place] [address] [phone] 11/20/2025 10:30 AM CDT Virtual Visit [address] [address] Marquise Hanley MD [address] [place] [address] 194865 documented as of this encounter Goals Goal [...] Depression Total Score: 10 024 9:34 AM CATTLE MANAGER documented as of this encounter Care Teams Journeyman Electrician Relationship Specialty Start Date End Date Omar Carmona MD [address] [place] [address] 61755 PCP - General Family Medicine 07/14/24 Barry Kilpatrick MD [address] [place] [address] [id number] [place] [address] Neurology 07/19/14 Michelle Henderson I, TANIA Nurse Coordinator Neurology 07/19/14 Rio Jaquez MD [address] [place] [address] 4 [place], [place] 462715 Family Practice 10/15/14 Jemima Jaramillo MD [address] [place] [address] 4 [place] [address] supervisor chassis assembly 11/20/14 Kelley Chin RN [address] [phone] Nurse Coordinator Cardiology 11/04/15 Sydnee Saleem MD [address] [place] [address] 508 [place], [place] 617265 Cardiology 11/04/15 Karlene Moya MD [address] [place] [address] 778885 Ophthalmology 06/24/17 Wilbert Quintero, OD [address] [place] [address] 243915 Optometry 06/24/17 Rod Gauthier DPM [address] [place] [address] 380755 Positive Printer Operator Primary Podiatric Medicine 06/21/18 Jan Mahmood MD 516 [facility] 2A [place] [address] MD Gastroenterology 11/05/20 Brandt Quintana MD [address] [place] [address] 9[address] Resident 11/05/20 Jan Mahmood MD 6 [facility] 2A [place] [address] Assigned Gastroenterology Provider 12/01/20 Dom Eason MD [address] [place] [address]65 Internal Medicine 12/02/20 Jaimie Vernon, RN Specialty Wax Ball Molder Cardiology 10/28/21 Marquise Hanley MD [address] [place] [address] 511555 Endocrinology, Diabetes, and Metabolism 03/05/22 Vlad Ramey MD [address] [place] [address] 17226 Cardiovascular Disease 05/07/22 Joesph Crowe MD [address] [place] [address] 25318 Surgery 05/07/22 Michelle Padilla RN Specialty Wax Ball Molder Cardiology 07/03/22 Marquise Hanley MD [address] [place] [address] 14732 Assigned Endocrinology Provider 08/15/22 Wagner Oliver MD [address] [place] [address] Critical Care 12/15/22 Joesph Crowe MD [address] [place] [address] [phone] Surgery 03/17/23 Adonay Haq MD [address] [place] [address] [phone] Internal Medicine 06/14/23OctoberDenilson MD [address] [facility] [address] [place] [address] Assigned Heart and Vascular Provider 05/29/23 11/28/24 Jason Alvares MD [address] [place] [address] 853865 Assigned Neuroscience Provider 05/15/23 11/28/24 Ruth Riddle DPM, Podiatry/Foot and Ankle Surgery [address] [place] [address] [place] [address] Assigned Musculoskeletal Provider 10/22/23 Jignesh Mathias MD [address] [place] [address] [phone] Gastroenterology 09/25/24 Adonay Haq MD [address] [place] [address] 756755 Assigned PCP 10/01/24 12/28/24 Omar Carmona MD [address] [place] [address] Assigned PCP 12/29/24 Jason Alvares MD [address] [place] [address] Assigned Neuroscience Provider 12/29/24 Jignesh Mathias MD [address] [place] [address]455 Assigned Surgical Provider 12/29/24 Ayad Lopez, PhD LP [address] [place] [address] Assigned Behavioral Health Provider 02/28/25 Gavi Nieto PA-C [address] [place] [address] [phone] Physician Senior Scheduler Dermatology 03/19/25 documented as of this encounter
--- OUTSIDE RECORDS SUMMARY | 2025-06-08 22:50 | XMS_ITS | Encounter Summary ---
Author Organization [facility] Address [address] [place] [address] 9[address] Care Team Providers Care Icing Mixer Name Role Phone Barry Kilpatrick MD Unavailable Michelle Henderson RN Unavailable [phone] Rio Jaquez MD Unavailable [phone] Jemima Jaramillo MD Unavailable Unavai Kelley Bautista RN Unavailable +[phone] Sydnee Saleem MD Unavailable [phone] Karlene Moya MD Unavailable [phone] Wilbert Quintero OD Unavailable +[phone] Rod Gauthier DPM Unavailable [phone] Jan Mahmood MD Unavailable [phone] Brandt Quintana MD Unavailable [phone] Jan Mahmood MD Unavailable [phone] Dom Eason MD Unavailable +[phone] Jaimie Vernon RN Unavailable Unavailable Marquise Hanley MD Unavailable +[phone] Vlad Ramey MD Unavailable +[phone] Joesph Crowe MD Unavailable [phone] Michelle Padilla RN Unavailable Unavaila ble Marquise Hanley MD Unavailable +[phone] Wagner Oliver MD Unavailable [phone] Joesph Crowe MD Unavailable [phone] Adonay Haq MD Unavailable [facility] Unavailable + [phone] Jason Alvares MD Unavailable Ruth Riddle DPM, Podiatry /Foot and Ankle Surgery Unavailable Omar Carmona MD Primary Care Provider [phone] Jignesh Mathias MD Unavailable Adonay Haq MD Unavailable [phone] Omar Carmona MD Unavailable [phone] Jason Alvares MD Unavailable Jignesh Mathias MD Unavailable Ayad Lopez PhD LP Unavailable +[phone] Gavi Nieto-C Unavailable [phone] Encounter Details Date Type Department Care Team (Late st Contact Info) Description 10/01/2024 [facility] Medical Advice [address] [address] Marquise Hanley MD [address] [place] [address] Social History Tobacco Use Types Packs/Day [...] any clubs o r organizations such as muslim groups, unions, fraternal or athletic groups, or [...] Answer Date Recorded PHQ-2 Score 3 07/14/2024 [facility] [...] Sex Assigned at Female 09/12/2020 12:05 PM OPTICAL STORE MANAGER Legal Sex Female 3:26 AM OPTICAL STORE MANAGER Gender Identity Female 09/12/2020 12:05 PM OPTICAL STORE MANAGER Sexual Orientation Straight 12/19/2021 10 :44 AM CDT Occupation Industry Job Start Date Job End Date on disability for FMS Not on file Not on file Not on file disabled Not on file Not on file Not on file documented as of this encounter Plan of Treatment Upcoming Encounters Date Type Department Care Team (Late st Contact Info) Description 06/13/2025 6:00 PM OPTICAL STORE MANAGER Ancillary Procedure [facility] Imaging Center [facility] Clinic [address] [place] [address] Omar Carmona MD [address] [place] [address] 328115 06/14/2025 4:00 PM OPTICAL STORE MANAGER Office Visit [facility] Primary Care Clinic [address] [place] [address] Omar Carmona MD [address] [place] [address] 06/15/2025 12:45 PM OPTICAL STORE MANAGER Therapy Visit [facility] [address] [facility] [place] [phone] Jason Alvares MD [address] [place] [address] Chaya Castillo OTR [facility] [address] [place] [address] 06/19/2025 10:30 AM OPTICAL STORE MANAGER Virtual Visit [facility] [address] [place] [address] 4th [place] [phone] Omar Carmona MD [address] [place] [address] 417235 Gerson Santos, [facility] 06/26/2025 11:00 AM OPTICAL STORE MANAGER Therapy Visit [address] [phone] Jason Alvares MD [address] [place] [address] Chaya Castillo OTR [facility] [address] [facility] [address] 07/09/2025 12:45 PM OPTICAL STORE MANAGER Therapy Visit [facility] 150 [place] [phone] Jason Alvares MD [address] [place] [address] Chaya Castillo OTR [facility] [address] [place] [address] 07/18/2025 3:00 PM OPTICAL STORE MANAGER Office Visit [facility] Heart [address] [phone] Adonay Chapman APRN ADULT NURSE PRACTITIONER 500 [place] [address] 11/05/2025 12:[address] [facility] Lab [address] [phone] 11/05/2025 1:45 PM CDT Office Visit [facility] Dermatology Clinic [address] [phone] Gavi Nieto PAJimmy Dermatology [address] [place] [address] 11/20/2025 10:30 AM CDT Virtual Visit [address] [address] Marquise Hanley MD [address] [place] [address] documented as of this encounter Goals Goal [...] Depression Total Score: 10 024 9:34 AM OPTICAL STORE MANAGER documented as of this encounter Care Teams Icing Mixer Relationship Specialty Start Date End Date Omar Carmona MD [address] [place] [address]687 PCP - General Family Medicine 07/14/24 Barry Kilpatrick MD [address] [place] [address] [id number] [place] [address] Neurology 07/19/14 Michelle Henderson I, RN Nurse Coordinator Neurology 07/19/14 Rio Jaquez MD [address] [place] [address] 4 [place], [place] [phone] Family Practice 10/15/14 Jemima Jaramillo MD [address] [place] [address] 4 [place] [address] screw down 11/20/14 Kelley Chin RN [address] [phone] Nurse Coordinator Cardiology 11/04/15 Sydnee Saleem MD [address] [place] [address] 508 [place], [place] 688075 Cardiology 11/04/15 Karlene Moya MD [address] [place] [address] 523255 Ophthalmology 06/24/17 Wilbert Quintero, OD [address] [place] [address] 502305 Optometry 06/24/17 Rod Gauthier DPM [address] [place] [address] 747725 Facsimile Machine Operator Primary Podiatric Medicine 06/21/18 Jan Mahmood MD [address] [facility] [place] [address] Gastroenterology 11/05/20 Brandt Quintana MD [address] [place] [address] Resident 11/05/20 Jan Mahmood MD [address] [facility] 2[address] [place] [address] Assigned Gastroenterology Provider 12/01/20 Dom Eason MD [address] [place] [address] Internal Medicine 12/02/20 Jaimie Vernon, RN Specialty Relocation Counselor Cardiology 10/28/21 Marquise Hanley MD [address] [place] [address] Endocrinology, Diabetes, and Metabolism 03/05/22 Vlad Ramey MD [address] [place] [address]017 Cardiovascular Disease 05/07/22 Joesph Crowe MD [address] [place] [address] Surgery 05/07/22 Michelle Padilla, RN Specialty Relocation Counselor Cardiology 07/03/22 Marquise Hanley MD [address] [place] [address] 359[address] Assigned Endocrinology Provider 08/15/22 Wagner Oliver MD [address] [place] [address] Critical Care 12/15/22 Joesph Crowe MD [address] [place] [address] 944395 Surgery 03/17/23 Adonay Haq MD [address] [place] [address] 640325 Internal Medicine 06/14/23OctoberDenilson MD [address] [facility] [address] [place] [address] Assigned Heart and Vascular Provider 05/29/23 11/28/24 Jason Alvares MD [address] [place] [address] 295 [place], [place] 515275 Assigned Neuroscience Provider 05/15/23 11/28/24 Ruth Riddle DPM, Podiatry/Foot and Ankle Surgery [address] [place] [address] Assigned Musculoskeletal Provider 10/22/23 Jignesh Mathias MD [address] [place] [address] 015285 Gastroenterology 09/25/24 Adonay Haq MD [address] [place] [address] 542935 Assigned PCP 10/01/24 12/28/24 Omar Carmona MD [address] [place] [address] Assigned PCP 12/29/24 Jason Alvares MD [address] [place] [address] Assigned Neuroscience Provider 12/29/24 Jignesh Mathias MD [address] [place] [address] Assigned Surgical Provider 12/29/24 Ayad Lopez, PhD LP [address] [place] [address] [phone] Assigned Behavioral Health Provider 02/28/25 Gavi Nieto, PA-C [address] [place] [address] [phone] Physician [employer] Dermatology 03/19/25 documented as of this encounter
--- OUTSIDE RECORDS SUMMARY | 2025-06-08 22:50 | XMS_ITS | Encounter Summary ---
Author Organization [employer] Address [address] [place] [address] 99478 Care Team Providers Care Fishing Lure Assembler Name Role Phone Barry Kilpatrick MD Unavailable Michelle Henderson RN Unavailable [phone] Rio Jaquez MD Unavailable [phone] Jemima Jaramillo MD Unavailable Unavai Kelley Bautista RN Unavailable [phone] Sydnee Saleem MD Unavailable [phone] Karlene Moya MD Unavailable [phone] Wilbert Quintero OD Unavailable +[phone] Rod Gauthier DPM Unavailable [phone] Jan Mahmood MD Unavailable [phone] Brandt Quintana MD Unavailable Jan Mahmood MD Unavailable [phone] Dom Eason MD Unavailable +[phone] Jaimie Vernon RN Unavailable Unavailable Marquise Hanley MD Unavailable [phone] Vlad Ramey MD Unavailable [phone] Joesph Crowe MD Unavailable Michelle Padilla RN Unavailable Unavaila ble Marquise Hanley MD Unavailable [phone] Wagner Oliver MD Unavailable [phone] Joesph Crowe MD Unavailable [phone] Adonay Haq MD Unavailable [phone] Rtuh Riddle DPM, Podiatry /Foot and Ankle Surgery Unavailable Omar Carmona MD Primary Care Provider [phone] Jignesh Mathias MD Unavailable Omar Carmona MD Unavailable Jason Alvares MD Unavailable Jignesh Mathias MD Unavailable Ayad Lopez PhD LP Unavailable [phone] Gavi Nieto PA-C Unavailable [phone] Encounter Details Date Type Department Care Team (Late st Contact Info) Description 05/16/2025 Results Follow-Up [facility] Primary Care Clinic [address] [address] Omar Carmona MD [address] [place] [address] Subj: Message about your results Social [...] Answer Date Recorded PHQ-2 Score 2 05/03/2025 [facility] - Occupational Stress Questionnaire [...] Sex Assigned at Female 09/12/2020 12:05 PM DAY HABILITATION SUPERVISOR Legal Sex Female 3:26 AM DAY HABILITATION SUPERVISOR Gender Identity Female 09/12/2020 12:05 PM DAY HABILITATION SUPERVISOR Sexual Orientation Straight 12/19/2021 10 :44 AM CDT Occupation Industry Job Start Date Job End Date on disability for FMS Not on file Not on file Not on file disabled Not on file Not on file Not on file documented as of this encounter Plan of Treatment Upcoming Encounters Date Type Department Care Team (Late st Contact Info) Description 06/13/2025 6:00 PM DAY HABILITATION SUPERVISOR Ancillary Procedure [facility] Imaging Center CT Clinic [address] [place] [phone] Omar Carmona MD [address] [place] [address] 06/14/2025 4:00 PM DAY HABILITATION SUPERVISOR Office Visit [facility] Primary Care [address] [place] [phone] Omar Carmona MD [address] [place] [address] 500205 06/15/2025 12:45 PM DAY HABILITATION SUPERVISOR Therapy Visit [facility] Rehabilitation Services [address] [phone] Jason Alvares MD [address] [facility] 295 [place], [place] 121805 Chaya Castillo OTR FV [address] [address] 06/19/2025 10:30 AM DAY HABILITATION SUPERVISOR Virtual Visit [facility] Primary Care Clinic [address] [place] [address] 4th [place] [phone] Omar Carmona MD [address] [place] [address] 905945 Gerson Santos, [facility] 06/26/2025 11:00 AM DAY HABILITATION SUPERVISOR Therapy Visit [facility] 150 [place] [phone] Jason Alvares MD [address] [place] [address] 503135 Chaya Castillo, OTR [address] [address] 07/09/2025 12:45 PM DAY HABILITATION SUPERVISOR Therapy Visit [facility] 150 [place] [phone] Jason Alvares MD [address] [place] [address] [phone] Chaya Castillo, OTR [address] [address] 07/18/2025 3:00 PM DAY HABILITATION SUPERVISOR Office Visit [facility] Heart Clinic [address] [phone] Adonay Chapman APRN [address] 950735 11/05/2025 12:30 PM CDT Lab [facility] Lab [address] [place] [phone] 11/05/2025 1:45 PM CDT Office Visit [facility] Dermatology Clinic [address] [place] [phone] Gavi Nieto PA-C Dermatology [address] [place] [address] 11/20/2025 10:30 AM CDT Virtual Visit [address] [place] [phone] Marquise Hanley MD [address] [place] [address] documented as of this encounter Goals Goal [...] documented as of this encounter Care Teams Fishing Lure Assembler Relationship Specialty Start Date End Date Omar Carmona MD [address] [place] [address] PCP - General Family Medicine 07/14/24 Barry Kilpatrick MD [address] [place] [address] [id number] [place] [address] Neurology 07/19/14 Michelle Henderson I, RN Nurse Coordinator Neurology 07/19/14 Rio Jaquez MD [address] [place] [address] [address] 4 [place] [address] Family Practice 10/15/14 Jemima Jaramillo MD [address] [facility] [place] 4 [place] [address] sticker hand 11/20/14 Kelley Chin, [facility] 909 [place] [address] Nurse Coordinator Cardiology 11/04/15 Sydnee Saleem MD [address] [place] [address] 508 [place], [place] 684085 Cardiology 11/04/15 Karlene Moya MD [address] [place] [address] 546395 Ophthalmology 06/24/17 Wilbert Quintero, OD [address] [place] [address] 553905 Optometry 06/24/17 Rod Gauthier DPM 9 [place], [place] 208065 Customer Solutions Representative Primary Podiatric Medicine 06/21/18 Jan Mahmood MD [address] [place] [address] 2[address] [place] [address] Gastroenterology 11/05/20 [place] [address] [place] [address] Resident 11/05/20 Jan Mahmood MD [address] [place] [address] 2[address] [place] [address] Assigned Gastroenterology Provider 12/01/20 Dom Eason MD [address] [place] [address]78 Internal Medicine 12/02/20 Jaimie Vernon, RN [facility] Food Service Worker Cardiology 10/28/21 Marquise Hanley MD [address] [place] [address] Endocrinology, Diabetes, and Metabolism 03/05/22 Vlad Ramey MD [address] [place] [address]29 Cardiovascular Disease 05/07/22 Joesph Crowe MD [address] [place] [address] 56527 MD Surgery 05/07/22 Michelle Padilla, RN [facility] Food Service Worker Cardiology 07/03/22 Marquise Hanley MD [address] [place] [address] Assigned Endocrinology Provider 08/15/22 Wagner Oliver MD [address] [place] [address] Critical Care 12/15/22 Joesph Crowe MD [address] [place] [address] 35946 Surgery 03/17/23 Adonay Haq MD [address] [place] [address] Internal Medicine 06/14/23 Ruth Riddle DPM, Podiatry/Foot and Ankle Surgery [address] [place] [address] Assigned Musculoskeletal Provider 10/22/23 Jignesh Mathias MD [address] [place] [address] Gastroenterology 09/25/24 Omar Carmona MD [address] [place] [address] 334865 Assigned PCP 12/29/24 Jason Alvares MD [address] [place] [address] 207975 Assigned Neuroscience Provider 12/29/24 Jignesh Mathias MD [address] [place] [address] 230775 Assigned Surgical Provider 12/29/24 Ayad Lopez, PhD LP [address] [place] [address] 990265 Assigned Behavioral Health Provider 02/28/25 Gavi Nieto, PA-C [address] [place] [address] 718575 Physician Digital Solution Architect Dermatology 03/19/25 documented as of this encounter
--- OUTSIDE RECORDS SUMMARY | 2025-06-08 22:51 | XMS_ITS | Encounter Summary ---
Author Organization [facility] Address [address] [place] [address] Care Team Providers Care Inpatient Services Rn Name Role Phone Rio Jaquez MD Primary Care Provider + [phone] Barry Kilpatrick MD Unavailable Michelle Henderson RN Unavailable [phone] Rio Jaquez MD Unavailable +[phone] Jemima Jaramillo MD Unavailable Unavai Kelley Bautista RN Unavailable +[phone] Sydnee Saleem MD Unavailable +[phone] Karlene Moya MD Unavailable +[phone] Wilbert Quintero OD Unavailable +[phone] Rod GauthierM Unavailable +[phone] Nallely Hogue RN Unavailable Unavailable Larisa Vargas RN Unavailable Unavailable Rio Jaquez MD Unavailable +[phone] Ruth Yarbrough MD Unavailable +[phone] Francisco Lott MD Unavailable +[phone] Frida Grace MD Unavailable +[phone] Sydnee Saleem MD Unavailable +[phone] Greg Ortega MD Unavailable +[phone] Frida Grace MD Unavailable +[phone] Jan [...] Unavailable +[phone] Thom Taveras MD Unavailable +[phone] Joesph Crowe MD Unavailable +[phone] Joesph Crowe MD Unavailable +[phone] Adonay Haq MD Unavailable +[phone] [facility] Hospital[facility] MD Unavailable +[phone] [facility] MD Unavailable Ruth Riddle DPM, Podiatry /Foot and Ankle Surgery Unavailable Omar Carmona MD Primary Care Provider +[phone] Jignesh Mathias MD Unavailable Adonay Haq MD Unavailable +[phone] Omar bragg MD Unavailable +[phone] Jason Alvares MD Unavailable Jignesh Mathias MD Unavailable Ayad Lopez PhD Unavailable +[phone] Gavi Nieto-C Unavailable +[phone] Reason for Visit * Reason Onset Date Comments Refill Request 05/03/2020 Encounter Details Date Type Department Care Team (Late st Contact Info) Description 05/03/2020 [facility] Medical Advice [facility] [address] [address] Rio Jaquez MD [address] [place] [address] Refill Request Social History Tobacco Use [...] Sex Assigned at Female 09/12/2020 12:05 PM JUICE SCALEMAN Legal Sex Female 3:26 AM JUICE SCALEMAN Gender Identity Female 09/12/2020 12:05 PM JUICE SCALEMAN Sexual Orientation Straight 12/19/2021 10 :44 AM CDT Occupation Industry Job Start Date Job End Date on disability for FMS Not on file Not on file Not on file documented as of this encounter Plan of Treatment Upcoming Encounters Date Type Department Care Team (Late st Contact Info) Description 06/13/2025 6:00 PM JUICE SCALEMAN Ancillary Procedure [facility] CT Clinic [address] [phone] Omar Carmona MD [address] [place] [address] 718345 06/14/2025 4:00 PM JUICE SCALEMAN Office Visit [facility] Primary Care [address] [phone] Omar Carmona MD [address] [place] [address] [phone] 06/15/2025 12:45 PM JUICE SCALEMAN Therapy Visit [facility] Rehabilitation Services [address] [phone] Jason Alvares MD [address] [place] [address] 663275 Chaya Castillo OTR [address] [address] 06/19/2025 10:30 AM JUICE SCALEMAN Virtual Visit [facility] Primary Care [address] [phone] Omar Carmona MD [address] [place] [address] [facility]Gerson [facility] 06/26/2025 11:00 AM JUICE SCALEMAN Therapy Visit [facility] [address] [place] [phone] Jason Alvares MD [address] [place] [address] Chaya Castillo, OTR [address] [address] 07/09/2025 12:45 PM JUICE SCALEMAN Therapy Visit [facility] [address] [place] [phone] Jason Alvares MD [address] [place] [address] Chaya Castillo OTR [address] [address] 07/18/2025 3:00 PM JUICE SCALEMAN Office Visit [facility] Heart Clinic [address] [phone] Adonay Chapman APRN [address] [address] 11/05/2025 12:30 PM CDT Lab [facility] Lab [address] [place] [address] 11/05/2025 1:45 PM CDT Office Visit [facility] Dermatology Clinic [address]rd [place] [phone] Gavi Nieto PA-C Dermatology [address] [place] [address] 11/20/2025 10:30 AM CDT Virtual Visit [address] [phone] Marquise Hanley MD [address] [place], [place] 326[address] documented as of this encounter Goals Goal [...] documented as of this encounter Care Teams Inpatient Services Rn Relationship Specialty Start Date End Date Rio Jaquez MD [address] [place] [address] [address] 4 [place] [address] PCP - General Family Practice 12/02/10 07/13/24 Omar Carmona MD [address] [place] [address] 97836 PCP - General Family Medicine 07/14/24 Barry Kilpatrick MD [address] [place] [address] [id number] [place] [address] Neurology 07/19/14 Michelle Henderson I, RN Nurse Coordinator Neurology 07/19/14 Rio Jaquez MD [address] [place] [address] 585075 Family Practice 10/15/14 Jemima Jaramillo MD stripper machine operator 11/20/14 Kelley Chin RN [address] [phone] Nurse Coordinator Cardiology 11/04/15 Sydnee Saleem MD [address] [place] [address] 508 [place] [address] Cardiology 11/04/15 Karlene Moya MD [address] [place] [address] Ophthalmology 06/24/17 Wilbert Quintero, OD [address] [place] [address] 847855 Optometry 06/24/17 Rod Gauthier DPM [address] [place] [address] 789675 Independent Sales Representative Primary Podiatric Medicine 06/21/18 Nallely Hogue, RN Registered Nurse 02/20/19 11/23/22 Larisa Vargas, TANIA Specialty Automatic Mold Sander Cardiology 04/18/19 03/06/22 Rio Jaquez MD [address] [place] [address] 952115 Assigned PCP 12/28/19 11/16/20 Ruth Yarbrough MD [address] [place] [address] 101 [place] [address] Assigned Endocrinology Provider 05/31/20 09/28/20 Francisco Lott MD 515 [facility] 88 [place] [address] Assigned Rheumatology Provider 05/31/20 12/13/21 [place] [address] [place] [address] JASON ANDERSON 14298 Assigned Pediatric Specialist Provider 05/31/20 09/08/20 Sydnee Saleem MD [address] [place] [address] Assigned Heart and Vascular Provider 05/31/20 10/22/20 Greg Ortega MD [address] [place] [address] 499[address] Assigned Surgical Provider 06/23/20 12/06/21 Frida Grace MD [address] [place] [address] JASON ANDERSON [address] Assigned Surgical Provider 05/31/20 06/22/20 Jan Mahmood MD 6 [facility] 2A [place] [address] Gastroenterology 11/05/20 Brandt Quintana MD [address] [place] [address] Resident 11/05/20 Jan Mahmood MD [address] [place] [address] [address] [place] [address] Assigned Gastroenterology Provider 12/01/20 Rio Jaquez MD 909 [facility] [address] 4 [place] [address] Assigned PCP 11/17/20 09/30/24 Dom Eason MD [address] [place] [address] 353 [place] [address] Internal Medicine 12/02/20 Jayla Plaza, RN Specialty Automatic Mold Sander Hepatology 01/09/21 02/13/24 Jayla Plaza, RN Specialty Automatic Mold Sander Hepatology 01/10/21 01/10/21 Sydnee Saleem MD [address] [address] Assigned Heart and Vascular Provider 02/02/21 07/24/22 Phan Coello MD Assigned Neuroscience Provider 02/21/21 11/22/21 Cristian Barragan MD [address] [place] [address] 7[address] Assigned Infectious Disease Provider 02/21/21 03/06/22 Dom Eason MD [address] [place] [address] 353 [place] [address] Assigned Nephrology Provider 04/20/21 01/02/22 Jaimie Vernon, TANIA Specialty Automatic Mold Sander Cardiology 10/28/21 Ruth Riddle DPM, Podiatry/Foot and Ankle Surgery [address] [place] [address] Assigned Musculoskeletal Provider 11/30/21 09/30/23 Luis Arrington MD [address] [place] [address] 85338 Assigned Neuroscience Provider 11/23/21 01/02/22 Jason Alvares MD [address] [place] [address]85 Assigned Neuroscience Provider 01/03/22 05/15/22 Marquise Hanley MD [address] [place] [address] 60357 Endocrinology, Diabetes, and Metabolism 03/05/22 Vlad Ramey MD [address] [place] [address] 36911 Cardiovascular Disease 05/07/22 Joesph Crowe MD [address] [place] [address] 15068 Surgery 05/07/22 Luis Arrington MD [address] [place] [address] 12259 Assigned Neuroscience Provider 05/16/22 05/14/23 Michelle Padilla, RN Specialty Automatic Mold Sander Cardiology 07/03/22 Vlad Ramey MD [address] [place] [address] 75764 Assigned Heart and Vascular Provider 07/25/22 05/28/23 Marquise Hanley MD [address] [place] [address] 782[address] Assigned Endocrinology Provider 08/15/22 Dom Eason MD 717 [facility] [place] [address] [place] [address] Assigned Nephrology Provider 11/28/22 02/19/23 Wagner Oliver MD [address] [place] [address] Critical Care 12/15/22 Laura Epperson NP [address] [place] [address] 1932 [place] [address] Assigned Nephrology Provider 02/20/23 08/30/24 Thom Taveras MD [address] [place] [address], [address] [address] Assigned Cancer Care Provider 02/06/23 08/20/23 Joesph Crowe MD [address] [place] [address] 65925 Surgery 03/17/23 Joesph Crowe MD [address] [place] [address] 15636 Assigned Surgical Provider 04/03/23 09/30/24 Adonay Haq MD [address] [place] [address] 84365 Internal Medicine 06/14/23OctoberDenilson MD [address] [place] [address] Assigned Heart and Vascular Provider 05/29/23 11/28/24 Jason Alvares MD [address] [place] [address] Assigned Neuroscience Provider 05/15/23 11/28/24 Ruth Riddle DPM, Podiatry/Foot and Ankle Surgery [address] [place] [address] Assigned Musculoskeletal Provider 10/22/23 Jignesh Mathias MD [address] [place] [address] 14879 Gastroenterology 09/25/24 Adonay Haq MD [address] [place] [address] 90857 Assigned PCP 10/01/24 12/28/24 Omar Carmona MD [address] [place] [address] 51901 Assigned PCP 12/29/24 Jason Alvares MD [address] [place] [address] 71730 Assigned Neuroscience Provider 12/29/24 Jignesh Mathias MD [address] [place] [address] 73952 Assigned Surgical Provider 12/29/24 Ayad Lopez, PhD LP [address] [place] [address] 286135 Assigned Behavioral Health Provider 02/28/25 Gavi Nieto PA-C [address] [place] [address] [phone] Physician Chemical Plant Operator Supervisor Dermatology 03/19/25 documented as of this encounter
--- OUTSIDE RECORDS SUMMARY | 2025-06-08 22:51 | XMS_ITS | Encounter Summary ---
Author Organization [facility] Address [address] [place] [address] Care Team Providers Care Edge Glue Machine Tender Name Role Phone Rio Jaquez MD Primary Care Provider + [phone] Barry Kilpatrick MD Unavailable Michelle Henderson RN Unavailable [phone] Rio Jaquez MD Unavailable +[phone] Jemima Jaramillo MD Unavailable Unavai Kelley Bautista RN Unavailable +[phone] Sydnee Saleem MD Unavailable +[phone] Karlene Moya MD Unavailable +[phone] Wilbert Quintero OD Unavailable +[phone] Rod aGuthierM Unavailable +[phone] Nallely Hogue RN Unavailable Unavailable Larisa Vargas RN Unavailable Unavailable Rio Jaquez MD Unavailable +[phone] Ruth Yarbrough MD Unavailable +[phone] Francisco Lott MD Unavailable +[phone] Frida Grace MD Unavailable +[phone] Sydnee Saleem MD Unavailable +[phone] Greg Ortega MD Unavailable Jan Mahmood MD Unavailable Brandt Quintana MD Unavailable Jan Mahmood MD Unavailable Rio Jaquez MD Unavailable Dom Eason MD Unavailable Jayla Plaza RN Unavailable +[phone] Jayla Plaza RN Unavailable +[phone] Sydnee aSleem MD Unavailable +[phone] Phan Coello MD Unavailable Unavailable Cristian Barragan MD Unavailable +[phone] Dom Eason MD Unavailable Jaimie Vernon RN Unavailable Unavailable Ruth Riddle DPM, Podiatry /Foot and Ankle Surgery Unavailable Luis Arrington MD Unavailable +[phone] Jason Alvares MD Unavailable Marquise Hanley MD Unavailable +[phone] Vlad Ramey MD Unavailable +[phone] Joesph Crowe MD Unavailable Luis Arrington MD Unavailable Michelle Padilla RN Unavailable Unavaila ble Vlad Ramey MD Unavailable +[phone] Marquise Hanley MD Unavailable +[phone] Dom Eason MD Unavailable Wagner Oliver MD Unavailable Laura Epperson NP Unavailable +[phone] Thom Taveras MD Unavailable +[phone] Joesph Crowe MD Unavailable +[phone] Joesph Crowe MD Unavailable +[phone] Adonay Haq MD Unavailable [phone] Denilson Srinivasan MD Unavailable +[phone] Jason Alvares MD Unavailable Ruth Riddle DPM, Podiatry /Foot and Ankle Surgery Unavailable Omar Carmona MD Primary Care Provider [phone] Jignesh Mathias MD Unavailable Adonay Haq MD Unavailable [phone] Omar Carmona MD Unavailable +[phone] Jason Alvares MD Unavailable Jignesh Mathias MD Unavailable Ayad Lopez PhD LP Unavailable +[phone] Gavi Nieto PA-C Unavailable +[phone] Encounter Details Date Type Department Care Team (Late st Contact Info) Description 07/16/2020 [facility] Rehabilitation Services [address] [address] [facility] Social History Tobacco Use Types Packs/Day Years Used Date Smoking Tobacco: Every Day Cigarettes 0.5 42.8 Started: 08/09/1982 Smokeless Tobacco: Never Alcohol Use Standard Drinks/Week Comments Yes 0 (1 standard drink = 0.6 oz pur e alcohol) twice weekly PHQ-2 Answer Date Recorded PHQ-2 Score 1 06/03/2020 Comments No Sex and Gender Information Value Date Recorded Sex Assigned at Female 09/12/2020 12:05 PM MAILROOM MESSENGER Legal Sex Female 3:26 AM MAILROOM MESSENGER Gender Identity Female 09/12/2020 12:05 PM MAILROOM MESSENGER Sexual Orientation Straight 12/19/2021 10 :44 AM CDT Occupation Industry Job Start Date Job End Date on disability for FMS Not on file Not on file Not on file COVID-19 Exposure Response Date Recorded In the last month, have you been in contact with someone who was confirmed or suspected to have Coronavirus / COVID-19? No / Unsure 07/02/2020 12:49 PM MAILROOM MESSENGER documented as of this encounter Plan of Treatment Upcoming Encounters Date Type Department Care Team (Late st Contact Info) Description 06/13/2025 6:00 PM MAILROOM MESSENGER Ancillary Procedure [facility] Imaging Center CT Clinic [address] [phone] Omar Carmona MD [address] [place] [address] 970885 06/14/2025 4:00 PM MAILROOM MESSENGER Office Visit [facility] Primary Care [address] [phone] Omar Carmona MD [address] [place] [address] [phone] 06/15/2025 12:45 PM MAILROOM MESSENGER Therapy Visit [facility] Rehabilitation Services [address] [phone] Jason Alvares MD [address] [place] [address] 295 [place], [place] 874485 Chaya Castillo, OTR [facility] 150 [place], [place] 515097 06/19/2025 10:30 AM MAILROOM MESSENGER Virtual Visit [facility] Primary Care [address] [phone] Omar Carmona MD [address] [place] [address] [phone] Gerson Santos, MORENO 06/26/2025 11:00 AM MAILROOM MESSENGER Therapy Visit [address] [phone] Jason Alvares MD [address] [place] [address] 011015 Chaya Castillo, OTR [address] [address] 07/09/2025 12:45 PM MAILROOM MESSENGER Therapy Visit [address] [phone] Jason Alvares MD [address] [place] [address] 867525 Chaya Castillo, OTR [address] [address] 07/18/2025 3:00 PM MAILROOM MESSENGER Office Visit [facility] Heart Clinic [address] [phone] Adonay Chapman APRN [facility] [address] [place], [place] 245955 11/05/2025 12:[address] [facility] Lab [address] [place] [phone] 11/05/2025 1:45 PM CDT Office Visit [facility] Dermatology Clinic [address] 3rd [place] [phone] Gavi Nieto PA-C Dermatology [address] [place] [address] [phone] 11/20/2025 10:30 AM CDT Virtual Visit [address] [place] [address] Marquise Hanley MD 9 [place], [place] 233585 documented as of this encounter Goals Goal [...] documented as of this encounter Care Teams Edge Glue Machine Tender Relationship Specialty Start Date End Date Rio Jaquez MD [address] [place] [address] 4 [place] [address] PCP - General Family Practice 12/02/10 07/13/24 Omar Carmona MD [address] [place] [address]10 PCP - General Family Medicine 07/14/24 Barry Kilpatrick MD [address] [place] [address] [id number] [place] [address] Neurology 07/19/14 Michelle Henderson I, RN Nurse Coordinator Neurology 07/19/14 Rio Jaquez MD [address] [place] [address] 4 [place] [address] Family Practice 10/15/14 Jemima Jaramillo MD signing agent 11/20/14 Kelley Chin, TANIA [facility] [address] [place], [place] 405195 Nurse Coordinator Cardiology 11/04/15 Sydnee Saleem MD 420 [facility] 508 [place], [place] 793945 Cardiology 11/04/15 Karlene Moya MD [address] [place] [address] [phone] Ophthalmology 06/24/17 Wilbert Quintero, OD [address] [place] [address] 035885 Optometry 06/24/17 Rod Gauthier DPM [address] [place] [address] 811095 Film Flat Inspector Primary Podiatric Medicine 06/21/18 Nallely Hogue, RN Registered Nurse 02/20/19 11/23/22 Larisa Vargas, TANIA Specialty Senior Project Manager Engineering Cardiology 04/18/19 03/06/22 Rio Jaquez MD [address] [place] [address] 634415 Assigned PCP 12/28/19 11/16/20 Ruth Yarbrough MD 420 [facility] 101 [place], [place] 558895 Assigned Endocrinology Provider 05/31/20 09/28/20 Francisco Lott MD [address] [place] [address] 245[address] Assigned Rheumatology Provider 05/31/20 12/13/21 Frida Grace MD [address] [facility] [place] [address] [place] [address] Assigned Pediatric Specialist Provider 05/31/20 09/08/20 Sydnee Saleem MD [address] [place] [address] [phone] Assigned Heart and Vascular Provider 05/31/20 10/22/20 Greg Ortega MD [address] [place] [address] 91890 Assigned Surgical Provider 06/23/20 12/06/21 Jan Mahmood MD [address] [place] [address] Gastroenterology 11/05/20 Brandt Quintana MD [address] [place] [address] 11434 Resident 11/05/20 Jan Mahmood MD [address] [place] [address] 96284 Assigned Gastroenterology Provider 12/01/20 Rio Jaquez MD [address] [place] [address] 22499 Assigned PCP 11/17/20 09/30/24 Dom Eason MD [address] [place] [address] 80368 Internal Medicine 12/02/20 Jayla Plaza, RN Specialty Senior Project Manager Engineering Hepatology 01/09/21 02/13/24 Jayla Plaza, RN Specialty Senior Project Manager Engineering Hepatology 01/10/21 01/10/21 Sydnee Saleem MD [address] [place] [address] 36818 Assigned Heart and Vascular Provider 02/02/21 07/24/22 Phan Coello MD Assigned Neuroscience Provider 02/21/21 11/22/21 Cristian Barragan MD 2945 [place] [address] Assigned Infectious Disease Provider 02/21/21 03/06/22 Dom Eason MD [address] [place] [address]70 Assigned Nephrology Provider 04/20/21 01/02/22 Jaimie Vernon, TANIA Specialty Senior Project Manager Engineering Cardiology 10/28/21 Ruth Riddle, DPM, Podiatry/Foot and Ankle Surgery [address] [facility] 300 [place] [address] Assigned Musculoskeletal Provider 11/30/21 09/30/23 Luis Arrington MD [address] [place] [address] 25738 Assigned Neuroscience Provider 11/23/21 01/02/22 Jason Alvares MD [address] [place] [address]227 Assigned Neuroscience Provider 01/03/22 05/15/22 Marquise Hanley MD [address] [place] [address] 9[address] Endocrinology, Diabetes, and Metabolism 03/05/22 Vlad Ramey MD [address] [place] [address] 50309 Cardiovascular Disease 05/07/22 Joesph Crowe MD [address] [place] [address] 65775 Surgery 05/07/22 Luis Arrington MD [address] [place] [address] 78050 Assigned Neuroscience Provider 05/16/22 05/14/23 Michelle Padilla RN Specialty Senior Project Manager Engineering Cardiology 07/03/22 Vlad Ramey MD [address] [place] [address] 61010 Assigned Heart and Vascular Provider 07/25/22 05/28/23 Marquise Hanley MD [address] [place] [address] 06437 Assigned Endocrinology Provider 08/15/22 Dom Eason MD 717 [facility] [address] [place] [address] Assigned Nephrology Provider 11/28/22 02/19/23 Wagner Oliver MD [address] [place] [address] Critical Care 12/15/22 Laura Epperson, ELECTRONIC TEST TECHNICIAN 717 [facility] [address] [place] [address] Assigned Nephrology Provider 02/20/23 08/30/24 Thom Taveras MD [address] [place] [address] Assigned Cancer Care Provider 02/06/23 08/20/23 Joesph Crowe MD [address] [place] [address] 54[address] Surgery 03/17/23 Joesph Crowe MD [address] [place] [address] 49567 Assigned Surgical Provider 04/03/23 09/30/24 Adonay Haq MD 9 [place], [place] 487715 Internal Medicine 06/14/23 Denilson Srinivasan MD [address] [place] [address] Assigned Heart and Vascular Provider 05/29/23 11/28/24 Jason Alvares MD 420 [facility] 295 [place], [place] 857265 Assigned Neuroscience Provider 05/15/23 11/28/24 Ruth Riddle, DPM, Podiatry/Foot and Ankle Surgery [address] [place] [address] Assigned Musculoskeletal Provider 10/22/23 Jignesh Mathias MD [address] [place] [address] [phone] Gastroenterology 09/25/24 Adonay Haq MD [address] [place] [address] 692315 Assigned PCP 10/01/24 12/28/24 Omar Carmona MD [address] [place], [place] 787495 Assigned PCP 12/29/24 Jason Alvares MD 420 [facility] [address] [place], [place] 938235 Assigned Neuroscience Provider 12/29/24 Jignesh Mathias MD [address] [place] [address] [phone] Assigned Surgical Provider 12/29/24 Ayad Lopez, PhD LP 6 [place], [place] 618585 Assigned Behavioral Health Provider 02/28/25 Gavi Nieto PA-C [address] [place] [address] Physician Senior Health Educator Dermatology 03/19/25 documented as of this encounter
--- OUTSIDE RECORDS SUMMARY | 2025-06-08 22:51 | XMS_ITS | Encounter Summary ---
Author Organization [facility] Address [address] [place] [address] Care Team Providers Care Dry Cleaner Hand Name Role Phone Rio Jaquez MD Primary Care Provider + [phone] Barry Kilpatrick MD Unavailable Michelle Henderson RN Unavailable [phone] Rio Jaquez MD Unavailable +[phone] Jemima Jaramillo MD Unavailable Unavai Kelley Bautista RN Unavailable [phone] Sydnee Saleem MD Unavailable +[phone] Karlene Moya MD Unavailable +[phone] Wilbert Quintero OD Unavailable +[phone] Rod Gauthier DPM Unavailable +[phone] Nallely Hogue RN Unavailable Unavailable Larisa Vargas RN Unavailable Unavailable Rio Jaquez MD Unavailable +[phone] Francisco Lott MD Unavailable [phone] Sydnee Saleem MD Unavailable +[phone] Greg Ortega MD Unavailable [phone] Jan Mahmood MD Unavailable Brandt Quintana MD Unavailable Jan Mahmood MD Unavailable Rio Jaquez MD Unavailable Dom Eason MD Unavailable [phone] Jayla Plaza RN Unavailable Jayla Plaza RN [...] MD Unavailable Wagner Oliver MD Unavailable [phone] Laura Epperson NP Unavailable Thom Taveras MD Unavailable +[phone] Joesph Crowe MD Unavailable Joesph Crowe MD Unavailable Adonay Haq MD Unavailable OctoberDenilson MD Unavailable +[phone] Jason Alvares MD Unavailable Ruth RiddleM, Podiatry /Foot and Ankle Surgery Unavailable Omar Carmona MD Primary Care Provider Jignesh Mathias MD Unavailable Adonay Haq MD Unavailable [phone] Omar bragg MD Unavailable [phone] Jason Alvares MD Unavailable Jignesh Mathias MD Unavailable Ayad Lopez PhD LP Unavailable [phone] Gavi Nieto-Keisha Unavailable [phone] Reason for Visit * Reason Onset Date Comments Clinic Care Coordination - Follow-up 10/07/2020 Appointment 10/08/2020 Encounter Details Date Type Department Care Team (Latest Contact Info) Description 10/07/2020 MyC Medical Advice [facility] [address] [address] Rio Jaquez MD [address] [place] [address] Clinic Care Coordination - Follow-up; Appo... [...] Sex Assigned at Female 09/12/2020 12:05 PM HYDRAULIC ENGINEER Legal Sex Female 3:26 AM HYDRAULIC ENGINEER Gender Identity Female 09/12/2020 12:05 PM HYDRAULIC ENGINEER Sexual Orientation Straight 12/19/2021 10 :44 AM CDT Occupation Industry Job Start Date Job End Date on disability for FMS Not on file Not on file Not on file COVID-19 Exposure Response Date Recorded In the last month, have you been in contact with someone who was confirmed or suspected to have Coronavirus / COVID-19? No / Unsure 09/16/2020 7:59 AM HYDRAULIC ENGINEER documented as of this encounter Miscellaneous Notes * Telephone Encounter - Eliana Chacon - 10/08/2020 11:04 AM CST Patient schedule in clinic with Dr Jaquez on 10/21 at 11:30 AM confirmed by patient. AULIC ENGINEER documented in this encounter Plan of Treatment Upcoming Encounters Date Type Department Care Team (Late st Contact Info) Description 06/13/2025 6:00 PM HYDRAULIC ENGINEER Ancillary Procedure [facility] [address] [place] [phone] Omar Carmona MD [address] [place] [address] 06/14/2025 4:00 PM HYDRAULIC ENGINEER Office Visit [facility] [address] [place] [phone] Omar Carmona MD [address] [place] [address] 581405 06/15/2025 12:45 PM HYDRAULIC ENGINEER Therapy Visit [facility] [address] [phone] Jason Alvares MD [address] [place] [address] 815235 Chaya Castillo, OTR [facility] 150 [place] [address] 06/19/2025 10:30 AM HYDRAULIC ENGINEER Virtual Visit [facility] [address] [place] [address] 4th [place] [phone] Omar Carmona MD [address] [place] [address] 270495 Gerson Santos, [facility] 06/26/2025 11:00 AM HYDRAULIC ENGINEER Therapy Visit [address] [phone] Jason Alvares MD [address] [place] [address] 094765 Chaya Castillo OTR [facility] 150 [place] [address] 07/09/2025 12:45 PM HYDRAULIC ENGINEER [facility] 150 [place] [phone] Jason Alvares MD [address] [place] [address] Chaya Castillo, OTR [facility] 150 [place] [address] 07/18/2025 3:00 PM HYDRAULIC ENGINEER Office Visit [facility] [address] [phone] Adonay Chapman APRN [address] 832475 11/05/2025 12:30 PM CDT Lab [facility] [place] 909 [facility] 1st [place] [phone] 11/05/2025 1:45 PM CDT Office Visit [facility] Dermatology Clinic [address] [place] [phone] Gavi Nieto PA-C Dermatology [address] [place] [address] 11/20/2025 10:30 AM CDT Virtual Visit [address] [address] Marquise Hanley MD [address] [place] [address] documented as of this encounter Goals Goal [...] Depression Total Score: 12 021 9:43 AM HYDRAULIC ENGINEER documented as of this encounter Care Teams Dry Cleaner Hand Relationship Specialty Start Date End Date Rio Jaquez MD [address] [place] [address] 4 [place] [address] PCP - General Family Practice 12/02/10 07/13/24 Omar Carmona MD [address] [place] [address] PCP - General Family Medicine 07/14/24 Barry Kilpatrick MD 9 [facility] [id number] [place], [place] 481075 Neurology 07/19/14 Michelle Henderson I, RN Nurse Coordinator Neurology 07/19/14 Rio Jaquez MD [address] [place] [address] [place] 4 [place], [place] 074005 Family Practice 10/15/14 Jemima Jaramillo MD nut roaster 11/20/14 Kelley Chin RN [address] [phone] Nurse Coordinator Cardiology 11/04/15 Sydnee Saleem MD 420 [facility] 508 [place], [place] 842945 Cardiology 11/04/15 Karlene Moya MD [address] [place] [address] [phone] Ophthalmology 06/24/17 Wilbert Quintero, OD [address] [place] [address] 058455 Optometry 06/24/17 Rod Gauthier DPM [address] [place] [place] [address] 604605 Cartoon Designer Primary Podiatric Medicine 06/21/18 Nallely Hogue, RN Registered Nurse 02/20/19 11/23/22 Larisa Vargas, RN Specialty Telecommunications Professional Cardiology 04/18/19 03/06/22 Rio Jaquez MD [address] [place] [address] Assigned PCP 12/28/19 11/16/20 Francisco Lott MD [address] [place] [address] 26967 Assigned Rheumatology Provider 05/31/20 12/13/21 Sydnee Saleem MD [address] [place] [address]17 Assigned Heart and Vascular Provider 05/31/20 10/22/20 Greg Ortega MD [address] [place] [address] 30792 Assigned Surgical Provider 06/23/20 12/06/21 Jan Mahmood MD [address] [place] [address] Gastroenterology 11/05/20 Brandt Quintana MD [address] [place] [address] Resident 11/05/20 Jan Mahmood MD [address] [place] [address] Assigned Gastroenterology Provider 12/01/20 Rio Jaquez MD [address] [place] [address] Assigned PCP 11/17/20 09/30/24 Dom Eason MD [address] [place] [address] Internal Medicine 12/02/20 Jayla Plaza, RN Specialty Telecommunications Professional Hepatology 01/09/21 02/13/24 Jayla Plaza, RN Specialty Telecommunications Professional Hepatology 01/10/21 01/10/21 Sydnee Saleem MD [address] [place] [address] [phone] Assigned Heart and Vascular Provider 02/02/21 07/24/22 Phan Coello MD Assigned Neuroscience Provider 02/21/21 11/22/21 Cristian Barragan MD 2945 [place] [address] Assigned Infectious Disease Provider 02/21/21 03/06/22 Dom Eason MD [address] [place] [address] Assigned Nephrology Provider 04/20/21 01/02/22 Jaimie Vernon, TANIA Specialty Telecommunications Professional Cardiology 10/28/21 Ruth Riddle DPM, Podiatry/Foot and Ankle Surgery [address] [address] Assigned Musculoskeletal Provider 11/30/21 09/30/23 Luis Arrington MD [address] [place] [address] Assigned Neuroscience Provider 11/23/21 01/02/22 Jason Alvares MD [address] [place] [address] 295 [place] [address] Assigned Neuroscience Provider 01/03/22 05/15/22 Marquise Hanley MD [address] [place] [address] Endocrinology, Diabetes, and Metabolism 03/05/22 Vlad Ramey MD [address] [place] [address] 17772 Cardiovascular Disease 05/07/22 Joesph Crowe MD [address] [place] [address] 41224 Surgery 05/07/22 Luis Arrington MD [address] [place] [address] 61341 Assigned Neuroscience Provider 05/16/22 05/14/23 Michelle Padilla RN Specialty Telecommunications Professional Cardiology 07/03/22 Vlad Ramey MD [address] [place] [address] 53757 Assigned Heart and Vascular Provider 07/25/22 05/28/23 Marquise Hanley MD [address] [place] [address] Assigned Endocrinology Provider 08/15/22 Dom Eason MD 717 [facility] [address] [place] [address] Assigned Nephrology Provider 11/28/22 02/19/23 Wagner Oliver MD [address] [place] [address] Critical Care 12/15/22 Laura Epperson, MGMT SPECIALIST 717 [facility] [address] [place] [address] Assigned Nephrology Provider 02/20/23 08/30/24 Thom Taveras MD [address], [address] [place] [address] Assigned Cancer Care Provider 02/06/23 08/20/23 Joesph Crowe MD [address] [address] Surgery 03/17/23 Joesph Crowe MD [address] [place] [address] 70729 Assigned Surgical Provider 04/03/23 09/30/24 Adonay Haq MD 9 [place] [address] Internal Medicine 06/14/23 Denilson Srinivasan MD [address] [place] [address] Assigned Heart and Vascular Provider 05/29/23 11/28/24 Jason Alvares MD 420 [facility] 295 [place], [place] 398325 Assigned Neuroscience Provider 05/15/23 11/28/24 Ruth Riddle, DPM, Podiatry/Foot and Ankle Surgery [address] [place] [address] Assigned Musculoskeletal Provider 10/22/23 Jignesh Mathias MD [address] [place] [address] 051355 Gastroenterology 09/25/24 Adonay Haq MD [address] [place] [address] 089725 Assigned PCP 10/01/24 12/28/24 Omar Carmona MD [address] [place] [address] 431275 Assigned PCP 12/29/24 Jason Alvares MD 420 [facility] 295 [place], [place] 497865 Assigned Neuroscience Provider 12/29/24 Jignesh Mathias MD [address] [place] [address] 479435 Assigned Surgical Provider 12/29/24 Ayad Lopez, PhD LP 6 [place] [address] Assigned Behavioral Health Provider 02/28/25 Gavi Nieto, PA-C 500 [place] [address] Physician Managed Care Specialist Dermatology 03/19/25 documented as of this encounter
--- OUTSIDE RECORDS SUMMARY | 2025-06-08 22:51 | XMS_ITS | Encounter Summary ---
Author Organization [facility] Address [address] [place] [address] Care Team Providers Care Product Sales Engineer Name Role Phone Rio Jaquez MD Primary Care Provider Barry Kilpatrick MD Unavailable Michelle Henderson I RN Unavailable [phone] Rio Jaquez MD Unavailable [phone] Jemima Jaramillo MD Unavailable Unavai Kelley Bautista RN Unavailable [phone] Sydnee Saleem MD Unavailable [phone] Karlene Moya MD Unavailable Wilbert Quintero OD Unavailable +[phone] Rod Gauthier DPM Unavailable Jan Mahmood MD Unavailable [phone] Brandt Quintana MD Unavailable [phone] Jan Mahmood MD Unavailable [phone] Rio Jaquez MD Unavailable [phone] Dom Eason MD Unavailable Jayla Plaza RN [...] Unavailable +[phone] Wagner Oliver MD Unavailable [phone] Laura Epperson NP Unavailable [phone] Thom Taveras MD Unavailable [phone] Joesph Crowe MD Unavailable [phone] Joesph Crowe MD Unavailable [phone] Adonay Haq MD Unavailable +[phone]- Denilson Srinivasan MD Unavailable + [phone] Jason Alvares MD Unavailable Ruth Riddle DPM, Podiatry /Foot and Ankle Surgery Unavailable Omar Carmona MD Primary Care Provider +[phone]- Jignesh Mathias MD Unavailable Adonay Haq MD Unavailable +1- Omar Carmona MD Unavailable +[phone] Jason Alvares MD Unavailable Jignesh Mathias MD Unavailable Ayad Lopez PhD LP Unavailable Gavi Nieto PA-C Unavailable [phone] Encounter Details Date Type Department Care Team (Late st Contact Info) Description 05/10/2023 MyC Medical Advice [facility] [address] 4th [place] [address] Rio Jaquez MD [address] [place] [address] 4 [place] [address] Social History Tobacco Use Types Packs/Day Years Used Date Smoking Tobacco: Every Day Cigarettes 0.5 42.8 Started: 08/09/1982 Other Smokeless Tobacco: Never Alcohol [...] any clubs o r organizations such as episcopal groups, unions, fraternal or athletic groups, or [...] Answer Date Recorded PHQ-2 Score 2 03/15/2023 [facility] [...] in a halfway (including now)? No 08/27/2021 Adolescent Education Answer Date Record ed Getting School Help Needed Not on file 05/08 Comments No Sex and Gender Information Value Date Recorded Sex Assigned at Female 09/12/2020 12:05 PM ACADEMIC SERVICES COORDINATOR Legal Sex Female 3:26 AM ACADEMIC SERVICES COORDINATOR Gender Identity Female 09/12/2020 12:05 PM ACADEMIC SERVICES COORDINATOR Sexual Orientation Straight 12/19/2021 10 :44 [...] st Contact Info) Description 06/13/2025 6:00 PM ACADEMIC SERVICES COORDINATOR Ancillary Procedure [facility] Imaging Center CT Clinic [address] [place] [phone] Omar Carmona MD [address] [place] [address] 920685 06/14/2025 4:00 PM ACADEMIC SERVICES COORDINATOR Office Visit [facility] [address] [place] [phone] Omar Carmona MD [address] [place] [address] 863825 06/15/2025 12:45 PM ACADEMIC SERVICES COORDINATOR Therapy Visit [facility] Rehabilitation Services [address] [address] Jason Alvares MD [address] [place] [address] 295 [place], [place] 294725 Chaya Castillo OTR [address] [place] [address] 06/19/2025 10:30 AM ACADEMIC SERVICES COORDINATOR Virtual Visit [facility] [address] [place] [phone] Omar Carmona MD [address] [place] [address] 984705 Gerson Santos [facility] 06/26/2025 11:00 AM ACADEMIC SERVICES COORDINATOR Therapy Visit [facility] [address] [place] [phone] Jason Alvares MD [address] [place] [address] Chaya Castillo OTR [facility] 150 [place] [address] 07/09/2025 12:45 PM ACADEMIC SERVICES COORDINATOR Therapy Visit [facility] [address] [place] [phone] Jason Alvares MD [address] [place] [address] Chaya Castillo OTR [facility] 150 [place] [address] 07/18/2025 3:00 PM ACADEMIC SERVICES COORDINATOR Office Visit [facility] Heart Clinic [address] [phone] Adonay Chapman APRN [address] 821925 11/05/2025 12:30 PM CDT Lab [facility] Lab [address] [address] 11/05/2025 1:45 PM CDT Office Visit [facility] Dermatology Clinic [place] 909 [facility] 3rd [place] [phone] Gavi Nieto PA-C Dermatology [address] [place] [address] 11/20/2025 10:30 AM CDT Virtual Visit [address] [phone] Marquise Hanley MD [address] [place] [address] 527[address] documented as of this encounter Goals Goal [...] documented as of this encounter Care Teams Product Sales Engineer Relationship Specialty Start Date End Date Rio Jaquez MD [address] [place] [address] 07274 PCP - General Family Practice 12/02/10 07/13/24 Omar Carmona MD [address] [place] [address] 26544 PCP - General Family Medicine 07/14/24 Barry iKlpatrick MD [address] [place] [address] [id number] [place], [place] 499055 Neurology 07/19/14 Michelle Henderson I, RN Nurse Coordinator Neurology 07/19/14 Rio Jaquez MD [address] [place] [address] [address] 4 [place] [address] Family Practice 10/15/14 Jemima Jaramillo MD factory maintenance technician 11/20/14 Kelley Chin, TANIA [address] 298695 Nurse Coordinator Cardiology 11/04/15 Sydnee Saleem MD [address] [place] [address] [facility] [address] [place], [place] 227485 Cardiology 11/04/15 Karlene Moya MD [address] [place] [address] 209125 Ophthalmology 06/24/17 Wilbert Quintero, OD [address] [place] [address] Optometry 06/24/17 Rod Gauthier DPM [address] [place] [address] [phone] Unit Operator Primary Podiatric Medicine 06/21/18 Jan Mahmood MD [address] [place] [address] [address] [place], [place] 092685 Gastroenterology 11/05/20 Brandt Quintana MD 1414 [place] [address] Resident 11/05/20 Jan Mahmood MD 516 [facility] 2A [place] [address] Assigned Gastroenterology Provider 12/01/20 Rio Jaquez MD 909 [facility] 4 [place], [place] 327105 Assigned PCP 11/17/20 09/30/24 Dom Eason MD 717 [facility] 353 [place] [address] Internal Medicine 12/02/20 Jayla Plaza, RN Specialty Charge Account Clerk Hepatology 01/09/21 02/13/24 Jaimie Vernon, RN Specialty Charge Account Clerk Cardiology 10/28/21 Ruth Riddle DPM, Podiatry/Foot and Ankle Surgery [address] [address] Assigned Musculoskeletal Provider 11/30/21 09/30/23 Marquise Hanley MD [address] [place] [address] [phone] Endocrinology, Diabetes, and Metabolism 03/05/22 Vlad Ramey MD [address] [place] [address] 848135 Cardiovascular Disease 05/07/22 Joesph Crowe MD [address] [place] [address] 72451 Surgery 05/07/22 Luis Arrington MD [address] [place] [address] 9[address] Assigned Neuroscience Provider 05/16/22 05/14/23 Michelle Padilla, TANIA Specialty Charge Account Clerk Cardiology 07/03/22 Vlad Ramey MD [address] [place] [address] 149295 Assigned Heart and Vascular Provider 07/25/22 05/28/23 Marquise Hanley MD [address] [place] [address] 990815 Assigned Endocrinology Provider 08/15/22 Wagner Oliver MD [address] [place] [address] Critical Care 12/15/22 Laura Epperson NP [address] [place] [address] [address] [place] [address] Assigned Nephrology Provider 02/20/23 08/30/24 Thom Taveras MD [facility] [address] [place], [place] 328254 Assigned Cancer Care Provider 02/06/23 08/20/23 Joesph Crowe MD [address] [place] [address] Surgery 03/17/23 Joesph Crowe MD [address] [place] [address] 97890 Assigned Surgical Provider 04/03/23 09/30/24 Adonay Haq MD [address] [place] [address] 80310 Internal Medicine 06/14/23October, Denilson Jackson MD [address] [facility] CLEO Black [facility]00 [place], [place] 062225 Assigned Heart and Vascular Provider 05/29/23 11/28/24 Jason Alvares MD [address] [place] [address]806 Assigned Neuroscience Provider 05/15/23 11/28/24 Ruth Riddle DPM, Podiatry/Foot and Ankle Surgery [address] [place] [address] Assigned Musculoskeletal Provider 10/22/23 Jignesh Mathias MD [address] [place] [address] 52450 Gastroenterology 09/25/24 Adonay Haq MD [address] [place] [address] 51469 Assigned PCP 10/01/24 12/28/24 Omar Carmona MD [address] [place] [address] 08475 Assigned PCP 12/29/24 Jason Alvares MD [address] [address] Assigned Neuroscience Provider 12/29/24 Jignesh Mathias MD [address] [place] [address] Assigned Surgical Provider 12/29/24 Ayad Lopez, PhD LP [address] [place] [address] Assigned Behavioral Health Provider 02/28/25 Gavi Nieto, PA-C [address] [place] [address] [phone] Physician Flatwork Folder Dermatology 03/19/25 documented as of this encounter
--- OUTSIDE RECORDS SUMMARY | 2025-06-08 22:51 | XMS_ITS | Encounter Summary ---
Author Organization [facility] Address [address] [place] [address] 20497 Care Team Providers Care Dredge Boat Engineer Name Role Phone Rio Jaquez MD Primary Care Provider Barry Kilpatrick MD Unavailable Michelle Henderson I RN Unavailable Rio Jaquez MD Unavailable [phone] Jemima Jaramillo MD Unavailable Unavai Kelley Bautista RN Unavailable +[phone] Sydnee Saleem MD Unavailable +[phone] Karlene Moya MD Unavailable +[phone] Wilbert Quintero OD Unavailable +[phone] Rod Gauthier DPM Unavailable Jan Mahmood MD Unavailable +[phone] Brandt Quintana MD Unavailable Jan Mahmood MD Unavailable +[phone] Rio Jaquez MD Unavailable +[phone] Dom Eason MD Unavailable Jayla Plaza RN [...] Unavailable +[phone] Wagner Oliver MD Unavailable +[phone] Laura Epperson NP Unavailable +[phone] Thom Taveras MD Unavailable +[phone] Joesph Crowe MD Unavailable +[phone] Joesph Crowe MD Unavailable +[phone] Adonay Haq MD Unavailable +1- Denilson Srinivasan MD Unavailable + [phone] Jason Alvares MD Unavailable Ruth Riddle DPM, Podiatry /Foot and Ankle Surgery Unavailable Omar Carmona MD Primary Care Provider +1- Jignesh Mathias MD Unavailable Adonay Haq MD Unavailable +1- Omar Carmona MD Unavailable +[phone] Jason Alvares MD Unavailable Jignesh Mathias MD Unavailable Ayad Lopez PhD LP Unavailable [phone] Gavi Nieto PA-C Unavailable Encounter Details Date Type Department Care Team (Late st Contact Info) Description 03/15/2023 [facility] [address] [place] [address] Shara Payne, RN Social History [...] Answer Date Recorded PHQ-2 Score 2 03/15/2023 [facility] [...] Sex Assigned at Female 09/12/2020 12:05 PM VOCAL MUSIC INSTRUCTOR Legal Sex Female 3:26 AM VOCAL MUSIC INSTRUCTOR Gender Identity Female 09/12/2020 12:05 PM VOCAL MUSIC INSTRUCTOR Sexual Orientation Straight 12/19/2021 10 :44 AM CDT Occupation Industry Job Start Date Job End Date on disability for FMS Not on file Not on file Not on file disabled Not on file Not on file Not on file COVID-19 Exposure Response Date Recorded In the last 10 days, have richard loving been in contact with someone who was confirmed or suspected to have Coronavirus/COVID-19? No / Unsure 03/17/2023 3:01 PM CDT documented as of this encounter Miscellaneous Notes * Telephone Encounter - Nithya Craft - 03/15/2023 4:29 PM CDT We tried to submit a prior auth today, but received confirmation stating no pa required. She can proceed with infusion as scheduled. Nithya Craft Infusion Counselor Dormitory documented in this encounter Plan of Treatment Upcoming Encounters Date Type Department Care Team (Late st Contact Info) Description 06/13/2025 6:00 PM VOCAL MUSIC INSTRUCTOR Ancillary Procedure [facility] Imaging Center CT Clinic [address] [phone] Omar Carmona MD [address] [place] [address] 06/14/2025 4:00 PM VOCAL MUSIC INSTRUCTOR Office Visit [facility] Primary Care Clinic [address] 4th [place] [phone] Omar Carmona MD [address] [place] [address] 799485 06/15/2025 12:45 PM VOCAL MUSIC INSTRUCTOR Therapy Visit [facility] Rehabilitation Services [address] [phone] Jason Alvares MD [address] [place] [address] Chaya Castillo, OTR [facility] 150 [place] [address] 06/19/2025 10:30 AM VOCAL MUSIC INSTRUCTOR Virtual Visit [facility] [address] [place] [address] 4th [place] [phone] Omar Carmona MD [address] [place] [address] 670775 Gerson Santos [facility] 06/26/2025 11:00 AM VOCAL MUSIC INSTRUCTOR Therapy Visit [address] [phone] Jason Alvares MD [address] [place] [address] 8[address] Chaya Castillo OTR [facility] 150 [place] [address] 07/09/2025 12:45 PM VOCAL MUSIC INSTRUCTOR Therapy Visit [facility] 150 [place] [phone] Jason Alvares MD [address] [place] [address] Chaya Castillo OTR [facility] 150 [place] [address] 07/18/2025 3:00 PM VOCAL MUSIC INSTRUCTOR Office Visit [facility] Heart Clinic [address] [phone] Adonay Chapman APRN [address] [id number] 11/05/2025 12:30 PM CDT Lab [facility] Lab [address] 1st [place] [phone] 11/05/2025 1:45 PM CDT Office Visit [facility] Dermatology Clinic [address] 3rd [place] [phone] Gavi Nieto PA-C Dermatology [address] [place] [address] 11/20/2025 10:30 AM CDT Virtual Visit [address] [phone] Marquise Hanley MD [address] [place] [address] 240315 documented as of this encounter Goals Goal [...] documented as of this encounter Care Teams Dredge Boat Engineer Relationship Specialty Start Date End Date Rio Jaquez MD [address] [place] [address] 25379 PCP - General Family Practice 12/02/10 07/13/24 Omar Carmona MD [address] [place] [address] 71302 PCP - General Family Medicine 07/14/24 Barry Kilpatrick MD [address] [place] [address] PM7949FY [place] [address] Neurology 07/19/14 Michelle Henderson I, RN Nurse Coordinator Neurology 07/19/14 Rio Jaquez MD [address] [place] [address] [address] [place], [place] 406985 Family Practice 10/15/14 Jemima Jaramillo MD tooth inspector 11/20/14 Kelley Chin RN [address] 144215 Nurse Coordinator Cardiology 11/04/15 Sydnee Saleem MD [address] [place] [address] 508 [place], [place] 003205 Cardiology 11/04/15 Karlene Moya MD [address] [place] [address] 068255 Ophthalmology 06/24/17 Wilbert Quintero, OD [address] [place] [address] 650765 Optometry 06/24/17 Rod Gauthier DPM [address] [place] [address] 554685 Middle School Assistant Principal Primary Podiatric Medicine 06/21/18 Jan Mahmood MD 516 [facility] 2A [place] [address] Gastroenterology 11/05/20 Brandt Quintana MD 1414 [place] [address] Resident 11/05/20 Jan Mahmood MD 516 [facility] 2A [place] [address] Assigned Gastroenterology Provider 12/01/20 Rio Jaquez MD [address] [facility] 4 [place], [place] 142365 Assigned PCP 11/17/20 09/30/24 Dom Eason MD 717 [facility] 353 [place] [address] Internal Medicine 12/02/20 Jayla Plaza, RN Specialty Bull Riveter Hepatology 01/09/21 02/13/24 Jaimie Vernon, RN Specialty Bull Riveter Cardiology 10/28/21 Ruth Riddle DPM, Podiatry/Foot and Ankle Surgery 67191 [facility] 300 [place] [address] Assigned Musculoskeletal Provider 11/30/21 09/30/23 Marquise Hanley MD 909 [place] [address] Endocrinology, Diabetes, and Metabolism 03/05/22 Vlad Ramey MD [address] [place] [address] 68445 Cardiovascular Disease 05/07/22 Joesph Crowe MD [address] [place] [address] 51847 Surgery 05/07/22 Luis Arrington MD [address] [place] [address] 82387 Assigned Neuroscience Provider 05/16/22 05/14/23 Michelle Padilla RN Specialty Bull Riveter Cardiology 07/03/22 Vlad Ramey MD [address] [place] [address] 94249 Assigned Heart and Vascular Provider 07/25/22 05/28/23 Marquise Hanley MD [address] [place] [address] 58807 Assigned Endocrinology Provider 08/15/22 Wagner Oliver MD [address] [place] [address] Critical Care 12/15/22 Laura Epperson NP 717 [facility] 1932 [place] [address] Assigned Nephrology Provider 02/20/23 08/30/24 Thom Taveras MD [facility] [address] [place] [address] Assigned Cancer Care Provider 02/06/23 08/20/23 Joesph Crowe MD [address] [place] [address] 11692 MD Surgery 03/17/23 Joesph Crowe MD [address] [place] [address] 89971 Assigned Surgical Provider 04/03/23 09/30/24 Adonay Haq MD [address] [place] [address] [phone] Internal Medicine 06/14/23OctoberDenilson MD [address] [facility] [address] [place], [place] 245955 Assigned Heart and Vascular Provider 05/29/23 11/28/24 Jason Alvares MD [address] [place] [address] 176845 Assigned Neuroscience Provider 05/15/23 11/28/24 Ruth Riddle DPM, Podiatry/Foot and Ankle Surgery [address] [place] [address] Assigned Musculoskeletal Provider 10/22/23 Jignesh Mathias MD [address] [place] [address] 984195 Gastroenterology 09/25/24 Adonay Haq MD [address] [place] [address] 73376 Assigned PCP 10/01/24 12/28/24 Omar Carmona MD [address] [place] [address] 55455 Assigned PCP 12/29/24 Jason Alvares MD [address] [place] [address] 55455 Assigned Neuroscience Provider 12/29/24 Jignesh Mathias MD [address] [place] [address]455 Assigned Surgical Provider 12/29/24 Ayad Lopez, PhD LP [address] [place] [address] [phone] Assigned Behavioral Health Provider 02/28/25 Gavi Nieto, PA-C [address] [place] [address] [phone] Physician Metal Miner Blasting Dermatology 03/19/25 documented as of this encounter
--- OUTSIDE RECORDS SUMMARY | 2025-06-08 22:51 | XMS_ITS | Encounter Summary ---
Author Organization [facility] Address [address] [place] [address] 86943 Care Team Providers Care Light Armored Reconnaissance Officer Name Role Phone Rio Jaquez MD Primary Care Provider + [phone] Barry Kilpatrick MD Unavailable Michelle Henderson RN Unavailable [phone] Rio Jaquez MD Unavailable [phone] Jemima Jaramillo MD Unavailable Unavai Kelley Bautista RN Unavailable [phone] Sydnee Saleem MD Unavailable +[phone] Karlene Moya MD Unavailable [phone] Wilbert Quintero OD Unavailable +[phone] Rod GauthierM Unavailable +[phone] Nallely Hogue RN Unavailable Unavailable Larisa Vargas RN Unavailable Unavailable Rio Jaquez MD Unavailable +[phone] Ruth Yarbrough MD Unavailable +[phone] Francisco Lott MD Unavailable +[phone] Frida Grace MD Unavailable +[phone] Sydnee Saleem MD Unavailable +[phone] [...] Unavailable Wagner Oliver MD Unavailable ZeenatLaura Ward CLEAT FEEDER Unavailable +[phone] Thom Taveras MD Unavailable +[phone] Joesph Crowe MD Unavailable [phone] Joesph Crowe MD Unavailable +[phone] Adonay Haq MD Unavailable [phone] [facility]available +[phone] Jason Alvares MD Unavailable Ruth Riddle DPM, Podiatry /Foot and Ankle Surgery Unavailable Omar Carmona MD Primary Care Provider [phone] Jignesh Mathias MD Unavailable Adonay Haq MD Unavailable +[phone] Omar Carmona MD Unavailable +[phone] Jason Alvares MD Unavailable Jignesh Mathias MD Unavailable Ayad Lopez PhD LP Unavailable +[phone] Gavi Nieto-C Unavailable +[phone] Encounter Details Date Type Department Care Team [...] Assigned at Female 09/12/2020 12:05 PM CARE CONNECTOR Legal Sex Female 3:26 AM CARE CONNECTOR Gender Identity Female 09/12/2020 12:05 PM CARE CONNECTOR Sexual Orientation Straight 12/19/2021 10 :44 AM CDT Occupation Industry Job Start Date Job End Date on disability for FMS Not on file Not on file Not on file COVID-19 Exposure Response Date Recorded In the last month, have you been in contact with someone who was confirmed or suspected to have Coronavirus / COVID-19? No / Unsure 06/12/2020 2:47 PM CARE CONNECTOR documented as of this encounter Plan of Treatment Upcoming Encounters Date Type Department Care Team (Late st Contact Info) Description 06/13/2025 6:00 PM CARE CONNECTOR Ancillary Procedure [facility] Imaging Center CT Clinic [address] [phone] Omar Carmona MD [address] [place] [address] [phone] 06/14/2025 4:00 PM CARE CONNECTOR Office Visit [facility] Primary Care [address] [phone] Omar Carmona MD [address] [place] [address] 746205 06/15/2025 12:45 PM CARE CONNECTOR Therapy Visit [facility] Rehabilitation Services [address] [phone] Jason Alvares MD 420 [facility] 295 [place], [place] 051065 Chaya Castillo OTR [facility] 150 [place], [place] 248377 06/19/2025 10:30 AM CARE CONNECTOR Virtual Visit [facility] Primary Care [address] [phone] Omar Carmona MD [address] [place] [address] 392055 Gerson Santos, MORENO 06/26/2025 11:00 AM CARE CONNECTOR Therapy Visit [address] [phone] Jason Alvares MD [address] [place] [address] Chaya Castillo, OTR [address] [address] 07/09/2025 12:45 PM CARE CONNECTOR Therapy Visit [address] [phone] Jason Alvares MD [address] [place] [address] 68[address] Chaya Castillo, OTR [address] [address] 07/18/2025 3:00 PM CARE CONNECTOR Office Visit [facility] Heart Clinic [address] [phone] Adonay Chapman APRN [facility] 500 [place], [place] 589405 11/05/2025 12:30 PM CDT Lab [facility] Lab [address] [phone] 11/05/2025 1:45 PM CDT Office Visit [facility] Dermatology Clinic [address] 3rd [place] [phone] Gavi Nieto PA-C Dermatology [address] [place] [address] 54[address] 11/20/2025 10:30 AM CDT Virtual Visit [address] [address] Marquise Hanley MD [address] [place] [address] 12742 documented as of this encounter Goals Goal [...] documented as of this encounter Care Teams Light Armored Reconnaissance Officer Relationship Specialty Start Date End Date Rio Jaquez MD [address] [place] [address] 03460 PCP - General Family Practice 12/02/10 07/13/24 Omar Carmona MD [address] [place] [address] 84322 PCP - General Family Medicine 07/14/24 Barry Kilpatrick MD [address] [place] [address] [id number] [place] [address] Neurology 07/19/14 Michelle Henderson I, RN Nurse Coordinator Neurology 07/19/14 Rio Jaquez MD [address] [place] [address] [place] 181955 Family Practice 10/15/14 Jemima Jaramillo MD tenant relations coordinator 11/20/14 Kelley Chin RN [facility] 909 [place], [place] 880135 Nurse Coordinator Cardiology 11/04/15 Sydnee Saleem MD [address] [place] [address] 508 [place], [place] 035815 Cardiology 11/04/15 Karlene Moya MD [address] [place] [address] 657225 Ophthalmology 06/24/17 Wilbert Quintero, PETEY [address] [place] [address] 581115 Optometry 06/24/17 Rod Gauthier DPM [address] [place] [address] 481655 Junior Recruiter Primary Podiatric Medicine 06/21/18 Nallely Hogue, RN Registered Nurse 02/20/19 11/23/22 Larisa Vargas, TANIA Specialty Data Analysis Intern Cardiology 04/18/19 03/06/22 Rio Jaquez MD [address] [place] [address] [phone] Assigned PCP 12/28/19 11/16/20 Ruth Yarbrough MD 420 [facility] 101 [place], [place] 040745 Assigned Endocrinology Provider 05/31/20 09/28/20 Francisco Lott MD [address] [place] [address] 41673 Assigned Rheumatology Provider 05/31/20 12/13/21 Frida Grace MD 3305 [facility] [place]ON [place]ERSON [address] Assigned Pediatric Specialist Provider 05/31/20 09/08/20 Sydnee Saleem MD [address] [place] [address] 61589 Assigned Heart and Vascular Provider 05/31/20 10/22/20 Greg Ortega MD [address] [place] [address] 46619 Assigned Surgical Provider 06/23/20 12/06/21 Frida Grace MD 3305 [facility] [place] [address] Assigned Surgical Provider 05/31/20 06/22/20 Jan Mahmood MD [address] [place] [address] 93999 Gastroenterology 11/05/20 Brandt Quintana MD [address] [place] [address] 21900 Resident 11/05/20 Jan Mahmood MD [address] [place] [address] 47810 Assigned Gastroenterology Provider 12/01/20 Rio Jaquez MD 909 [facility] 4 [place], [place] 263655 Assigned PCP 11/17/20 09/30/24 Dom Eason MD [address] [place] [address] 353 [place], [place] 576974 Internal Medicine 12/02/20 Jayla Plaza, RN Specialty Data Analysis Intern Hepatology 01/09/21 02/13/24 Jayla Plaza, RN Specialty Data Analysis Intern Hepatology 01/10/21 01/10/21 Sydnee Saleem MD [address] [place] [address] Assigned Heart and Vascular Provider 02/02/21 07/24/22 Phan Coello MD Assigned Neuroscience Provider 02/21/21 11/22/21 Cristian Barragan MD 2945 [place] [address] Assigned Infectious Disease Provider 02/21/21 03/06/22 Dom Eason MD [address] [place] [address] 353 [place] [address] Assigned Nephrology Provider 04/20/21 01/02/22 Jaimie Vernon, TANIA Specialty Data Analysis Intern Cardiology 10/28/21 Ruth Riddle DPM, Podiatry/Foot and Ankle Surgery [address] [place] [address] 91172 Assigned Musculoskeletal Provider 11/30/21 09/30/23 Luis Arrington MD [address] [place] [address] 75756 Assigned Neuroscience Provider 11/23/21 01/02/22 Jason Alvares MD [address] [place] [address] 91347 Assigned Neuroscience Provider 01/03/22 05/15/22 Marquise Hanley MD [address] [place] [address] 55997 Endocrinology, Diabetes, and Metabolism 03/05/22 Vlad Ramey MD [address] [place] [address] 86262 Cardiovascular Disease 05/07/22 Joesph Crowe MD [address] [place] [address] 16310 Surgery 05/07/22 Luis Arrington MD [address] [place] [address] 67061 Assigned Neuroscience Provider 05/16/22 05/14/23 Michelle Padilla, TANIA Specialty Data Analysis Intern Cardiology 07/03/22 Vlad Ramey MD [address] [place] [address] 64511 Assigned Heart and Vascular Provider 07/25/22 05/28/23 Marquise Hanley MD [address] [place] [address] 04771 Assigned Endocrinology Provider 08/15/22 Dom Eason MD 717 [facility] 353 [place] [address] Assigned Nephrology Provider 11/28/22 02/19/23 Wagner Oliver MD 6401 [facility] [place] [address] Critical Care 12/15/22 Laura Epperson NP 7 [facility] 1932 [place] [address] Assigned Nephrology Provider 02/20/23 08/30/24 Thom Taveras MD [address] [place] [address] Assigned Cancer Care Provider 02/06/23 08/20/23 Joesph Crowe MD [address] [place] [address] 27793 Surgery 03/17/23 Joesph Crowe MD [address] [place] [address] 45519 Assigned Surgical Provider 04/03/23 09/30/24 Adonay Hqa MD [address] [place] [address] 13382 Internal Medicine 06/14/23OctoberDenilson MD [address] [place] [address] Assigned Heart and Vascular Provider 05/29/23 11/28/24 Jason Alvares MD 420 [facility] 295 [place] [address] Assigned Neuroscience Provider 05/15/23 11/28/24 Ruth Riddle, DPM, Podiatry/Foot and Ankle Surgery [address] [place], [place] 243057 Assigned Musculoskeletal Provider 10/22/23 Jignesh Mathias MD [address] [place] [address] 280775 Gastroenterology 09/25/24 Adonay Haq MD [address] [place] [address] 010935 Assigned PCP 10/01/24 12/28/24 Omar Carmona MD 9 [place], [place] 940155 Assigned PCP 12/29/24 Jason Alvares MD [address] [address] Assigned Neuroscience Provider 12/29/24 Jignesh Mathias MD [address] [place] [address] 30205 Assigned Surgical Provider 12/29/24 Ayad Lopez, PhD LP [address] [place] [address] 32944 Assigned Behavioral Health Provider 02/28/25 Gavi Nieto PA-C 500 [place] [address] Physician Oleomargarine Maker Dermatology 03/19/25 documented as of this encounter
--- OUTSIDE RECORDS SUMMARY | 2025-06-08 22:51 | XMS_ITS | Encounter Summary ---
Author Organization [facility] Address [address] [place] [address] 54866 Care Team Providers Care Director Of Vocational Training Name Role Phone Barry Kilpatrick MD Unavailable Michelle Henderson RN Unavailable [phone] Rio Jaquez MD Unavailable +[phone] Jemima Jaramillo MD Unavailable Unavai Kelley Bautista RN Unavailable +[phone] Sydnee Saleem MD Unavailable +[phone] Karlene Moya MD Unavailable +[phone] Wilbert Quintero OD Unavailable +[phone] Rod Gauthier DPM Unavailable +[phone] Jan Mahmood MD Unavailable +[phone] Brantd Quintana MD Unavailable +[phone] Jan Mahmood MD Unavailable +[phone] Dom Eason MD Unavailable +[phone] Jaimie Vernon RN Unavailable Unavailable Marquise Hanley MD Unavailable +[phone] Vlad Ramey MD Unavailable +[phone] Joesph Crowe MD Unavailable +[phone] Michelle Padilla RN Unavailable Unavaila ble Marquise Hanley MD Unavailable +[phone] Wagner Oliver MD Unavailable +- [phone] Joesph Crowe MD Unavailable +[phone] Adonay Haq MD Unavailable +[phone] Ruth RiddleM, Podiatry /Foot and Ankle Surgery Unavailable Omar Carmona MD Primary Care Provider +[phone] Jignesh Mathias MD Unavailable Adonay Haq MD Unavailable +[phone] Omar Carmona MD Unavailable +[phone] Jason Alvares MD Unavailable Jignseh Mathias MD Unavailable Ayad Lopez PhD LP Unavailable +[phone] Gavi Nieto PA-C Unavailable +[phone] Encounter Details Date Type Department Care Team (Late st Contact Info) Description 12/18/2024 [facility] [address] [address] Lizbeth Lopes Social History Tobacco [...] Answer Date Recorded PHQ-2 Score 3 12/04/2024 [facility] Occupat ional [facility] - Occupational [...] in an overnight chcf, or couch-surfing.) Yes 07/12/2023 Are you worried [...] Sex Assigned at Female 09/12/2020 12:05 PM LIBRARY AIDE Legal Sex Female 3:26 AM LIBRARY AIDE Gender Identity Female 09/12/2020 12:05 PM LIBRARY AIDE Sexual Orientation Straight 12/19/2021 10 :44 AM CDT Occupation Industry Job Start Date Job End Date on disability for FMS Not on file Not on file Not on file disabled Not on file Not on file Not on file documented as of this encounter Plan of Treatment Upcoming Encounters Date Type Department Care Team (Late st Contact Info) Description 06/13/2025 6:00 PM LIBRARY AIDE Ancillary Procedure [facility] [address] [place] [phone] Omar Carmona MD [address] [place] [address] 06/14/2025 4:00 PM LIBRARY AIDE Office Visit [facility] [address] [place] [phone] Omar Carmona MD [address] [place] [address] 84[address] 06/15/2025 12:45 PM LIBRARY AIDE Therapy Visit [facility] Rehabilitation Services [address] [phone] Jason Alvares MD [address] [place] [address] 789745 Chaya Castillo [facility] 150 [place], [place] 046987 06/19/2025 10:30 AM LIBRARY AIDE Virtual Visit [facility] [address] [place] [address] 4th [place] [address] Omar Carmona MD [address] [place] [address] Gerson Santos, [facility] 06/26/2025 11:00 AM LIBRARY AIDE Therapy Visit [facility] 150 [place] [phone] Jason Alvares MD [address] [place] [address] 247[address] 150 [place] [address] 07/09/2025 12:45 PM LIBRARY AIDE [facility] 150 [place] [phone] Jason Alvares MD [address] [place] [address] 978865 [address] 150 [place], [place] 308577 07/18/2025 3:00 PM LIBRARY AIDE Office Visit [facility] [address] [phone] Adonay Chapman APRN [address] [address] 11/05/2025 12:30 PM CDT Lab [facility] [address] [phone] 11/05/2025 1:45 PM CDT Office Visit [facility] Dermatology Clinic [address] [phone] Gavi Nieto PA-C Dermatology [address] [place] [address] 11443 11/20/2025 10:30 AM CDT Virtual Visit [address] [phone] Marquise Hanley MD [address] [place] [address] 353035 documented as of this encounter Goals Goal [...] as of this encounter Care Teams Director Of Vocational Training Relationship Specialty Start Date End Date Omar Carmona MD [address] [place] [address] 49238 PCP - General Family Medicine 07/14/24 Barry Kilpatrick MD [address] [place] [address] [id number] [place] [address] Neurology 07/19/14 Michelle Henderson I, RN Nurse Coordinator Neurology 07/19/14 Rio Jaquez MD [address] [place] [address] 4 [place], [place] 598525 Family Practice 10/15/14 Jemima Jaramillo MD [address] [place] [address] newscast director 11/20/14 Kelley Chin, TANIA [address] 863625 Nurse Coordinator Cardiology 11/04/15 Sydnee Saleem MD [address] [place] [address] 508 [place], [place] 934355 Cardiology 11/04/15 Karlene Moya MD [address] [place] [address] 522985 Ophthalmology 06/24/17 Wilbert Quintero, OD [address] [place] [address] 761875 Optometry 06/24/17 Rod Gauthier DPM [address] [place] [address] 483265 [facility] Primary Podiatric Medicine 06/21/18 Jan Mahmood MD [address] [place] [address] 2A [place], [place] 257035 Gastroenterology 11/05/20 Brandt Quintana MD 1414 [place] [address] Resident 11/05/20 Jan Mahmood MD 516 [facility] 2A [place] [address] Assigned Gastroenterology Provider 12/01/20 Dom Eason MD 717 [facility] 353 [place] [address] Internal Medicine 12/02/20 Jaimie Vernon, RN Specialty Pharmaceutical Development Technician Cardiology 10/28/21 Marquise Hanley MD [address] [place] [address] 02718 Endocrinology, Diabetes, and Metabolism 03/05/22 Vlad Ramey MD [address] [place] [address] 35549 Cardiovascular Disease 05/07/22 Joesph Crowe MD [address] [place] [address] 02841 Surgery 05/07/22 Michelle Padilla RN Specialty Pharmaceutical Development Technician Cardiology 07/03/22 Marquise Hanley MD [address] [place] [address] 61516 Assigned Endocrinology Provider 08/15/22 Wagner Oliver MD [address] [place] [address] Critical Care 12/15/22 Joesph Crowe MD [address] [place] [address] 82602 Surgery 03/17/23 Adonay Haq MD [address] [place] [address] 19651 Internal Medicine 06/14/23 Ruth Riddle DPM, Podiatry/Foot and Ankle Surgery [address] [address] Assigned Musculoskeletal Provider 10/22/23 Jignesh Mathias MD [address] [place] [address] 94[address] Gastroenterology 09/25/24 Adonay Haq MD [address] [place] [address] 641625 Assigned PCP 10/01/24 12/28/24 Omar Carmona MD [address] [place] [address] 95671 Assigned PCP 12/29/24 Jason Alvares MD [address] [place] [address] 659525 Assigned Neuroscience Provider 12/29/24 Jignesh Mathias MD [address] [place] [address] 88802 Assigned Surgical Provider 12/29/24 Ayad Lopez, PhD LP [address] [place] [address] 68449 Assigned Behavioral Health Provider 02/28/25 Gavi Nieto PA-C 500 [place], [place] 554945 Physician Drawer In Stitch Bonding Machine Dermatology 03/19/25 documented as of this encounter
--- OUTSIDE RECORDS SUMMARY | 2025-06-08 22:51 | XMS_ITS | Encounter Summary ---
Author Organization [facility] Address [address] [place] [address] 86703 Care Team Providers Care Anesthesia Resident Name Role Phone Barry Kilpatrick MD Unavailable Michelle Henderson RN Unavailable [phone] Rio Jaquez MD Unavailable +[phone] Jemima Jaramillo MD Unavailable Unavai Kelley Bautista RN Unavailable +[phone] Sydnee Saleem MD Unavailable +[phone] Karlene Moya MD Unavailable +[phone] Wilbert Quintero OD Unavailable +[phone] Rod Gauthier DPM Unavailable +[phone] Jan Mahmood MD Unavailable +[phone] Brandt Quintana MD Unavailable [phone] Jan Mahmood MD Unavailable +[phone] Dom Eason MD Unavailable +[phone] Jaimie Vernon RN Unavailable Unavailable Marquise Hanley MD Unavailable +[phone] Vlad Ramey MD Unavailable +[phone] Joesph Crowe MD Unavailable Michelle Padilla RN Unavailable Unavaila ble Marquise Hanley MD Unavailable +[phone] Wagner Oliver MD Unavailable +- [phone] Joesph Crowe MD Unavailable +[phone] Adonay Haq MD Unavailable [phone] Ruth RiddleM, Podiatry /Foot and Ankle Surgery Unavailable Omar Carmona MD Primary Care Provider [phone] Jignesh Mathias MD Unavailable Adonay Haq MD Unavailable [phone] Omar Carmona MD Unavailable +[phone] Jason Alvares MD Unavailable Jignesh Mathias MD Unavailable Ayad Lopez PhD LP Unavailable +[phone] Gavi Nieto PA-C Unavailable +[phone] Encounter Details Date Type Department Care Team (Late st Contact Info) Description 12/20/2024 [facility] Medical Advice [facility] [address] [address] Alicia Marmolejo LPN Social History [...] Answer Date Recorded PHQ-2 Score 3 12/04/2024 [facility] Occupat ional Health - Occupational Stress [...] Sex Assigned at Female 09/12/2020 12:05 PM MERCHANDISE EXAMINER Legal Sex Female 3:26 AM MERCHANDISE EXAMINER Gender Identity Female 09/12/2020 12:05 PM MERCHANDISE EXAMINER Sexual Orientation Straight 12/19/2021 10 :44 AM CDT Occupation Industry Job Start Date Job End Date on disability for FMS Not on file Not on file Not on file disabled Not on file Not on file Not on file documented as of this encounter Plan of Treatment Upcoming Encounters Date Type Department Care Team (Late st Contact Info) Description 06/13/2025 6:00 PM MERCHANDISE EXAMINER Ancillary Procedure [facility] CT Clinic [address]st [place] [phone] Omar Carmona MD [address] [place] [address] 270[address] 06/14/2025 4:00 PM MERCHANDISE EXAMINER Office Visit [facility] [address] 4th [place] [phone] Omar Carmona MD [address] [place] [address] 416[address] 06/15/2025 12:45 PM MERCHANDISE EXAMINER Therapy Visit [facility] [address] [address] Jason Alvares MD [address] [place] [address] 990895 Chaya Castillo [facility]TR [facility] 150 [place] [address] 06/19/2025 10:30 AM MERCHANDISE EXAMINER Virtual Visit [facility] [address] [place] [address] 4th [place] [phone] Omar Carmona MD [address] [place] [address] [phone] Gerson Santos [facility] 06/26/2025 11:00 AM MERCHANDISE EXAMINER Therapy Visit [facility] 150 [place] [phone] Jason Alvares MD [address] [place] [address] [facility] 150 [place] [address] 07/09/2025 12:45 PM MERCHANDISE EXAMINER Therapy Visit [facility] 150 [place] [phone] Jason Alvares MD [address] [place] [address] Ch[facility] Cast[facility] 150 [place] [address] 07/18/2025 3:00 PM MERCHANDISE EXAMINER Office Visit [facility] [address] [phone] Adonay Chapman APRN [address] [address] 11/05/2025 12:30 PM CDT Lab [facility] Lab [address] [phone] 11/05/2025 1:45 PM CDT Office Visit [facility] Dermatology [facility] [address] [place] [phone] Gavi Nieto PA-C Dermatology [address] [place] [address] [phone] 11/20/2025 10:30 AM CDT Virtual Visit [address] [phone] Marquise Hanley MD [address] [place] [address] 953935 documented as of this encounter Goals Goal [...] documented as of this encounter Care Teams Anesthesia Resident Relationship Specialty Start Date End Date Omar Carmona MD [address] [place] [address]92 PCP - General Family Medicine 07/14/24 Barry Kilpatrick MD [address] [place] [address] [id number] [place], [place] 483045 Neurology 07/19/14 Michelle Henderson I, RN Nurse Coordinator Neurology 07/19/14 Rio Jaquez MD 9 [facility] 4 [place], [place] 800375 Family Practice 10/15/14 Jemima Jaramillo MD [address] [place] [address] 4 [place] [address] automotive finance manager 11/20/14 Kelley Chin, TANIA [address] 037485 Nurse Coordinator Cardiology 11/04/15 Sydnee Saleem MD [address] [place] [address] 508 [place], [place] 053035 Cardiology 11/04/15 Karlene Moya MD [address] [place] [address] 346625 Ophthalmology 06/24/17 Wilbert Quintero, OD [address] [place] [address] 086485 Optometry 06/24/17 Rod Gauthier DPM [address] [place] [address] 518575 Order Takers Supervisor Primary Podiatric Medicine 06/21/18 Jan Mahmood MD [address] [place], [place] [address]B 2A [place], [place] 380245 Gastroenterology 11/05/20 Brandt Quintana MD 1414 [place] [address] Resident 11/05/20 Jan Mahmood MD [address] [facility] 2A [place] [address] Assigned Gastroenterology Provider 12/01/20 Dom Eason MD 717 [facility]EL 353 [place] [address] Internal Medicine 12/02/20 Jaimie Vernon, RN Specialty Child Psychiatrist Cardiology 10/28/21 Marquise Hanley MD [address] [place] [address] Endocrinology, Diabetes, and Metabolism 03/05/22 Vlad Ramey MD [address] [place] [address] 36211 Cardiovascular Disease 05/07/22 Joesph Crowe MD [address] [place] [address] 28688 Surgery 05/07/22 Michelle Padilla, TANIA Specialty Child Psychiatrist Cardiology 07/03/22 Marquise Hnaley MD [address] [place] [address] 51384 Assigned Endocrinology Provider 08/15/22 Wagner Oliver MD [address] [place] [address] Critical Care 12/15/22 Joesph Crowe MD [address] [place] [address] 73866 Surgery 03/17/23 Adonay Haq MD [address] [place] [address] 38865 Internal Medicine 06/14/23 Ruth Riddle DPM, Podiatry/Foot and Ankle Surgery [address] [facility] [address] Assigned Musculoskeletal Provider 10/22/23 Jignesh Mathias MD [address] [place] [address] 08190 Gastroenterology 09/25/24 Adonay Haq MD [address] [place] [address] 25684 Assigned PCP 10/01/24 12/28/24 Omar Carmona MD [address] [place] [address] 09832 Assigned PCP 12/29/24 Jason Alvares MD [address] [place] [address] 28015 Assigned Neuroscience Provider 12/29/24 Jignesh Mathias MD [address] [place] [address] 50644 Assigned Surgical Provider 12/29/24 Ayad Lopez, PhD LP [address] [place] [address] Assigned Behavioral Health Provider 02/28/25 Gavi Nieto PA-C [address] [place] [address] 578245 Physician Manager [employer] Dermatology 03/19/25 documented as of this encounter
--- OUTSIDE RECORDS SUMMARY | 2025-06-08 22:51 | XMS_ITS | Encounter Summary ---
Author Organization [facility] Address [address] [place] [address]43 Care Team Providers Care Salesforce Business Analyst Name Role Phone Roi Jaquez MD Primary Care Provider Barry Kilpatrick MD Unavailable Michelle Henderson I RN Unavailable [phone] Rio Jaquez MD Unavailable +[phone] Jemima Jaramillo MD Unavailable Unavai Kelley Bautista RN Unavailable [phone] Sydnee Saleem MD Unavailable +[phone] Karlene Moya MD Unavailable +[phone] Wilbert Quintero OD Unavailable +[phone] Rod Gauthier DPM Unavailable Jan Mahmood MD Unavailable +[phone] Brandt Quintana MD Unavailable [phone] Jan Mahmood MD Unavailable +[phone] Rio Jaquez MD Unavailable +[phone] Dom Eason MD Unavailable Jayla Plaza RN [...] Unavailable +[phone] Wagner Oliver MD Unavailable +[phone] Laura Epperson NP Unavailable +[phone] Thom Taveras MD Unavailable +[phone] Joesph Crowe MD Unavailable +[phone] Joesph Corwe MD Unavailable +[phone] Adonay Haq MD Unavailable +1- Denilson Srinivasan MD Unavailable + [phone] Jason Alvares MD Unavailable Ruth Riddle DPM, Podiatry /Foot and Ankle Surgery Unavailable Omar Carmona MD Primary Care Provider +1- Jignesh Mathias MD Unavailable Adonay Haq MD Unavailable +1- Omar Carmona MD Unavailable +[phone] Jason Alvares MD Unavailable Jignesh Mathias MD Unavailable Ayad Lopez PhD LP Unavailable +[phone] Gavi Nieto PA-C Unavailable [phone] Encounter Details Date Type Department Care Team (Late st Contact Info) Description 04/20/2023 [facility] Medical Advice [facility] Heart [address] [phone] Michelle Padilla, RN Social History [...] Date Recorded PHQ-2 Score 2 03/15/2023 [facility] of Occupat ional Health [...] Sex Assigned at Female 09/12/2020 12:05 PM CABLEMAN Legal Sex Female 3:26 AM CABLEMAN Gender Identity Female 09/12/2020 12:05 PM CABLEMAN Sexual Orientation Straight 12/19/2021 10 :44 AM [...] st Contact Info) Description 06/13/2025 6:00 PM CABLEMAN Ancillary Procedure [facility] [address] [phone] Omar Carmona MD [address] [place] [address] 109645 06/14/2025 4:00 PM CABLEMAN Office Visit [facility] [address] [address] Omar Carmona MD [address] [place] [address] 066945 06/15/2025 12:45 PM CABLEMAN Therapy Visit [facility] [address] [phone] Jason Alvares MD 420 [facility] 295 [place], [place] 256535 Chaya Castillo OTR [facility] 150 [place] [address] 06/19/2025 10:30 AM CABLEMAN Virtual Visit [facility] [address] [address] Omar Carmona MD [address] [place] [address] 066665 TomGerson, [facility] 06/26/2025 11:00 AM CABLEMAN Therapy Visit [facility] 150 [place] [phone] Jason Alvares MD [address] [place] [address] Chaya Castillo OTMari [address] [address] 07/09/2025 12:45 PM CABLEMAN Therapy Visit [address] [phone] Jason Alvares MD [address] [place] [address] Chaya Castillo OTR [address] [address] 07/18/2025 3:00 PM CABLEMAN Office Visit [facility] [address] [phone] Adonay Chapman APRN [address] 870735 11/05/2025 12:30 PM CDT Lab [facility] [address] [address] 11/05/2025 1:45 PM CDT Office Visit [facility] D[facility] [address] 3rd [place] [phone] Gavi Nieto PA-C Dermatology [address] [place] [address] 8[address] 11/20/2025 10:30 AM CDT Virtual Visit [address] [phone] Marquise Hanley MD [address] [place] [address] 92573 documented as of this encounter Goals Goal [...] documented as of this encounter Care Teams Salesforce Business Analyst Relationship Specialty Start Date End Date Rio Jaquez MD [address] [place] [address] [place] [address] [place] [address] PCP - General Family Practice 12/02/10 07/13/24 Omar Carmona MD [address] [place] [address] 34951 PCP - General Family Medicine 07/14/24 Barry Kilpatrick MD [address] [place] [address] [id number] [place] [address] Neurology 07/19/14 Michelle Henderson I, RN Nurse Coordinator Neurology 07/19/14 Rio Jaquez MD [address] [place] [address] 396565 Family Practice 10/15/14 Jemima Jaramillo MD armament installer 11/20/14 Kelley Chin RN [address] 226495 Nurse Coordinator Cardiology 11/04/15 Sydnee Saleem MD [address] [place], [place] [address] [place] [address] Cardiology 11/04/15 Karlene Moya MD [address] [place] [address] Ophthalmology 06/24/17 Wilbert Quintero, OD [address] [place] [address] Optometry 06/24/17 Rod Gautheir DPM [address] [place] [address]455 Channel Director Primary Podiatric Medicine 06/21/18 Jan Mahmood MD [address] [place] [address] Gastroenterology 11/05/20 Brandt Quintana MD [address] [place] [address] 10598 Resident 11/05/20 Jan Mahmood MD 516 [facility] 2[address] [place] [address] Assigned Gastroenterology Provider 12/01/20 Rio Jaquez MD [address] [place] [address] FL 4 [place], [place] 020795 Assigned PCP 11/17/20 09/30/24 Dom Eason MD 717 [facility] 353 [place], [place] 431884 Internal Medicine 12/02/20 Jayla Plaza, RN Specialty Cnc Machinist 2Nd Shift Hepatology 01/09/21 02/13/24 Jaimie Vernon, RN Specialty Cnc Machinist 2Nd Shift Cardiology 10/28/21 Ruth Riddle, DPM, Podiatry/Foot and Ankle Surgery 06274 [facility] 300 [place] [address] Assigned Musculoskeletal Provider 11/30/21 09/30/23 Marquise Hanley MD [address] [place] [address] 76334 Endocrinology, Diabetes, and Metabolism 03/05/22 Vlad Ramey MD [address] [place] [address] 10325 Cardiovascular Disease 05/07/22 Joesph Crowe MD [address] [place] [address] 93606 Surgery 05/07/22 Luis Arrington MD [address] [place] [address] 52904 Assigned Neuroscience Provider 05/16/22 05/14/23 Michelle Padilla, RN Specialty Cnc Machinist 2Nd Shift Cardiology 07/03/22 Vlad Ramey MD [address] [place] [address] 136795 Assigned Heart and Vascular Provider 07/25/22 05/28/23 Marquise Hanley MD [address] [place] [address] 71924 Assigned Endocrinology Provider 08/15/22 Wagner Oliver MD [address] [place] [address] Critical Care 12/15/22 Laura Epperson NP [address] [place] [address] 1932 [place] [address] Assigned Nephrology Provider 02/20/23 08/30/24 Thom Taveras MD [address] [place] [address], [address] [address] Assigned Cancer Care Provider 02/06/23 08/20/23 Joesph Crowe MD [address] [place] [address] 12115 Surgery 03/17/23 Joesph Crowe MD [address] [place] [address] 44231 Assigned Surgical Provider 04/03/23 09/30/24 Adonay Haq MD [address] [place] [address] 44732 Internal Medicine 06/14/23October, Denilson Jackson MD 6405 [facility] W200 [place], [place] 547615 Assigned Heart and Vascular Provider 05/29/23 11/28/24 Jason Alvares MD [address] [place] [address] 945905 Assigned Neuroscience Provider 05/15/23 11/28/24 Ruth Riddle DPM, Podiatry/Foot and Ankle Surgery 77414 [facility] 300 [place] [address] Assigned Musculoskeletal Provider 10/22/23 Jignesh Mathias MD [address] [place] [address] 32927 Gastroenterology 09/25/24 Adonay Haq MD [address] [place] [address] 15509 Assigned PCP 10/01/24 12/28/24 Omar Carmona MD [address] [place] [address] 490245 Assigned PCP 12/29/24 Jason Alvares MD [address] [place] [address] 039725 Assigned Neuroscience Provider 12/29/24 Jignesh Mathias MD 909 [place], [place] 529445 Assigned Surgical Provider 12/29/24 Ayad Lopez, PhD LP [address] [place] [address] Assigned Behavioral Health Provider 02/28/25 Gavi Nieto PANavinC 500 [place] [address] Physician Gas Furnace Installer Dermatology 03/19/25 documented as of this encounter
--- OUTSIDE RECORDS SUMMARY | 2025-06-08 22:51 | XMS_ITS | Encounter Summary ---
Author Organization [facility] Address [address] [place] [address] 23287 Care Team Providers Care Primary Health Organisation Manager Name Role Phone Rio Jaquez MD Primary Care Provider + [phone] Barry Kilpatrick MD Unavailable Michelle Henderson RN Unavailable [phone] Rio Jaquez MD Unavailable +[phone] Jemima Jaramillo MD Unavailable Unavai Kelley Bautista RN Unavailable +[phone] Sydnee Saleem MD Unavailable +[phone] Karlene Moya MD Unavailable +[phone] Wilbert Quintero OD Unavailable +[phone] Rod Gauthier DPM Unavailable + [phone] Nallely Hogue RN Unavailable Unavailable Larisa Vargas RN Unavailable Unavailable Rio Jaquez MD Unavailable +[phone] Ruth Yarbrough MD Unavailable +[phone] Francisco Lott MD Unavailable +[phone] Sydnee Saleem MD Unavailable +[phone] Greg Ortega MD Unavailable Jan Mahmood [...] +[phone] Joesph Crowe MD Unavailable +[phone] Luis Arrington MD Unavailable +[phone] Michelle Padilla RN Unavailable Unavaila ble Vlad Ramey MD Unavailable Marquise Hanley MD Unavailable +[phone] Dom Eason MD Unavailable Wagner Olivre MD Unavailable Laura Epperson NP Unavailable +[phone] Thom Taveras MD Unavailable Joesph Crowe MD Unavailable +[phone] Joesph Crowe MD Unavailable +[phone] Adonay Haq MD Unavailable Zarina Denilson Jackson MD Unavailable +[phone] Jason Alvares MD Unavailable Ruth Riddle DPM, Podiatry /Foot and Ankle Surgery Unavailable Omar Carmona MD Primary Care Provider [phone] Jignesh Mathias MD Unavailable Adonay Haq MD Unavailable +[phone] Omar bragg MD Unavailable +[phone] Jason Alvares MD Unavailable Jignesh Mathias MD Unavailable Ayad Lopez PhD LP Unavailable +[phone] Gavi Nieto PA-C Unavailable +[phone] Encounter Details Date Type Department Care Team [...] Sex Assigned at Female 09/12/2020 12:05 PM LINER WORKER Legal Sex Female 3:26 AM LINER WORKER Gender Identity Female 09/12/2020 12:05 PM LINER WORKER Sexual Orientation Straight 12/19/2021 10 :44 AM CDT Occupation Industry Job Start Date Job End Date on disability for FMS Not on file Not on file Not on file COVID-19 Exposure Response Date Recorded In the last month, have you been in contact with someone who was confirmed or suspected to have Coronavirus / COVID-19? No / Unsure 09/16/2020 7:59 AM LINER WORKER documented as of this encounter Plan of Treatment Upcoming Encounters Date Type Department Care Team (Late st Contact Info) Description 06/13/2025 6:00 PM LINER WORKER Ancillary Procedure [facility] CT Clinic [address] [place] [phone] Omar Carmona MD [address] [place] [address] 491525 06/14/2025 4:00 PM LINER WORKER Office Visit [facility] Care [address] [phone] Omar Carmona MD [address] [place] [address] [id number] 06/15/2025 12:45 PM LINER WORKER Therapy Visit [address] [phone] Jason Alvares MD 420 [facility] 295 [place], [place] 968875 Chaya Castillo, OTR [facility] 150 [place], [place] 094007 06/19/2025 10:30 AM LINER WORKER Virtual Visit [address] [address] Omar Carmona MD [address] [place] [address] 786285 Gerson Santos RPH 06/26/2025 11:00 AM LINER WORKER Therapy Visit [address] [place] [address] Jason Alvares MD [address] [place] [address] Chaya Castillo, OTR [facility] 150 [place] [address] 07/09/2025 12:45 PM LINER WORKER Therapy Visit [facility] 150 [place] [address]407014 Jason Alvares MD [address] [place] [address] Chaya Castillo, OTR [address] [address] 07/18/2025 3:00 PM LINER WORKER Office Visit [facility] Heart [address] [phone] Adonay Chapman APRN [address] 847685 11/05/2025 12:30 PM CDT Lab [facility] Lab [address] [place] [phone] 11/05/2025 1:45 PM CDT Office Visit [facility] Dermatology Clinic [address] 3rd [place] [phone] Gavi Nieto PA-C Dermatology [address] [place] [address] 11/20/2025 10:30 AM CDT Virtual Visit [address] [address] Marquise Hanley MD [address] [place] [address] 244215 documented as of this encounter Goals Goal [...] Depression Total Score: 12 021 9:43 AM LINER WORKER documented as of this encounter Care Teams Primary Health Organisation Manager Relationship Specialty Start Date End Date Rio Jaquez MD [address] [place] [address] 95841 PCP - General Family Practice 12/02/10 07/13/24 Omar Carmona MD [address] [place] [address] 25692 PCP - General Family Medicine 07/14/24 Barry Kilpatrick MD [address] [place] [address] [id number] [place] [address] Neurology 07/19/14 Michelle Henderson I, TANIA Nurse Coordinator Neurology 07/19/14 Rio Jaquez MD [address] [place] [address] 58277 Family Practice 10/15/14 Jemima Jaramillo MD warehouse material handler 11/20/14 Kelley Chin, TANIA [facility] [address] [place] [address] 108865 Nurse Coordinator Cardiology 11/04/15 Sydnee Saleem MD 420 [facility] 508 [place], [place] 288815 Cardiology 11/04/15 Karlene Moya MD [address] [place] [address]455 Ophthalmology 06/24/17 Wilbert Quintero OD [address] [place] [address] 55455 Optometry 06/24/17 Rod Gauthier DPM [address] [place] [address] 505685 Blasting Gang Miner Primary Podiatric Medicine 06/21/18 Nallely Hogue, RN Registered Nurse 02/20/19 11/23/22 Larisa Vargas, TANIA Specialty Plant And Instrument Engineer Cardiology 04/18/19 03/06/22 Rio Jaquez MD [address] [place] [address] 4 [place], [place] 272175 Assigned PCP 12/28/19 11/16/20 Ruth Yarbrough MD 420 [facility] 101 [place], [place] 441485 Assigned Endocrinology Provider 05/31/20 09/28/20 Francisco Lott MD 515 [facility] 88 [place] [address] Assigned Rheumatology Provider 05/31/20 12/13/21 Sydnee Saleem MD 6550 [facility] [address] [place] [address] Assigned Heart and Vascular Provider 05/31/20 10/22/20 Greg Ortega MD 9 [place] [address] Assigned Surgical Provider 06/23/20 12/06/21 Jan Mahmood MD 6 [facility] 2A [place] [address] Gastroenterology 11/05/20 Brandt Quintana MD [address] [place] [address] 83892 Resident 11/05/20 Jan Mahmood MD [address] [place] [address] 87973 Assigned Gastroenterology Provider 12/01/20 Rio Jaquez MD 9 [facility] 4 [place] [address] Assigned PCP 11/17/20 09/30/24 Dom Eason MD [address] [place] [address] 353 [place] [address] Internal Medicine 12/02/20 Jayla Plaza, RN Specialty Plant And Instrument Engineer Hepatology 01/09/21 02/13/24 Jayla Plaza, RN Specialty Plant And Instrument Engineer Hepatology 01/10/21 01/10/21 Sydnee Saleem MD 6550 [facility] [address] [place] [address] 10297 Assigned Heart and Vascular Provider 02/02/21 07/24/22 Phan Coello MD Assigned Neuroscience Provider 02/21/21 11/22/21 Cristian Barragan MD 2945 [place] [address] Assigned Infectious Disease Provider 02/21/21 03/06/22 Dom Eason MD [address] [place] [address] 353 [place] [address] Assigned Nephrology Provider 04/20/21 01/02/22 Jaimie Vernon, TANIA Specialty Plant And Instrument Engineer Cardiology 10/28/21 Ruth Riddle, DPM, Podiatry/Foot and Ankle Surgery 62343 [facility] 300 [place], [place] 264057 Assigned Musculoskeletal Provider 11/30/21 09/30/23 Luis Arrington MD 909 [place], [place] [phone] Assigned Neuroscience Provider 11/23/21 01/02/22 Jason Alvares MD 420 [facility] 295 [place], [place] 119775 Assigned Neuroscience Provider 01/03/22 05/15/22 Marquise Hanley MD [address] [place] [address] 06189 Endocrinology, Diabetes, and Metabolism 03/05/22 Vlad Ramey MD [address] [place] [address] 73275 Cardiovascular Disease 05/07/22 Joesph Crowe MD [address] [place] [address] 53956 Surgery 05/07/22 Luis Arrington MD [address] [place] [address] 45875 Assigned Neuroscience Provider 05/16/22 05/14/23 Michelle Padilla RN Specialty Plant And Instrument Engineer Cardiology 07/03/22 Vlad Ramey MD [address] [place] [address] 57315 Assigned Heart and Vascular Provider 07/25/22 05/28/23 Marquise Hanley MD [address] [place] [address] 63822 Assigned Endocrinology Provider 08/15/22 Dom Eason MD [address] [place] [address] 0[address] Assigned Nephrology Provider 11/28/22 02/19/23 Wagner Oliver MD [address] [address] Critical Care 12/15/22 Laura Epperson NP 717 [facility] [address] [place] [address] Assigned Nephrology Provider 02/20/23 08/30/24 Thom Taveras MD [address] [facility], [address] [place], [place] 773484 Assigned Cancer Care Provider 02/06/23 08/20/23 Joesph Crowe MD [address] [place] [address] 730055 Surgery 03/17/23 Joesph Crowe MD [address] [place] [address] 374165 Assigned Surgical Provider 04/03/23 09/30/24 Adonay Haq MD [address] [place] [address] 977495 Internal Medicine 06/14/23OctoberDenilson MD [address] [facility] [address] [place], [place] 613775 Assigned Heart and Vascular Provider 05/29/23 11/28/24 Jason Alvares MD 420 [facility] 295 [place], [place] 149655 Assigned Neuroscience Provider 05/15/23 11/28/24 Ruth Riddle, DPM, Podiatry/Foot and Ankle Surgery [address] [place], [place] 816667 Assigned Musculoskeletal Provider 10/22/23 Jignesh Mathias MD [address] [place] [address] 096785 Gastroenterology 09/25/24 Adonay Haq MD [address] [place] [address] [id number] Assigned PCP 10/01/24 12/28/24 Omar Carmona MD [address] [place] [address] 55455 Assigned PCP 12/29/24 Jason Alvares MD [address] [place] [address] 55455 Assigned Neuroscience Provider 12/29/24 Jignesh Mathias MD [address] [place] [address] 018195 Assigned Surgical Provider 12/29/24 Ayad Lopez, PhD LP [address] [place] [address] 894675 Assigned Behavioral Health Provider 02/28/25 Gavi Nieto PA-C [address] [place] [address] 55455 Physician Air Conditioning Installer Supervisor Dermatology 03/19/25 documented as of this encounter
--- OUTSIDE RECORDS SUMMARY | 2025-06-08 22:51 | XMS_ITS | Encounter Summary ---
Author Organization [facility] Address [address] [place] [address] 72248 Care Team Providers Care Weaver Hand Loom Name Role Phone Rio Jaquez MD Primary Care Provider Barry Kilpatrick MD Unavailable Michelle Henderson I RN Unavailable [phone] Rio Jaquez MD Unavailable +[phone] Jemima Jaramillo MD Unavailable Unavai Kelley Bautista RN Unavailable [phone] Sydnee Saleem MD Unavailable [phone] Karlene Moya MD Unavailable +[phone] Wilbert Quintero OD Unavailable +[phone] Rod Gauthier DPM Unavailable Jan Mahmood MD Unavailable +[phone] Brandt Quintana MD Unavailable [phone] Jan Mahmood MD Unavailable +[phone] Rio Jaquez MD Unavailable [phone] Dom Eason MD Unavailable Jayla Plaza RN [...] Unavailable +[phone] Wagner Oliver MD Unavailable +[phone] Laura Epperson NP Unavailable +[phone] Thom Taveras MD Unavailable +[phone] Joesph Crowe MD Unavailable +[phone] Joesph Crowe MD Unavailable [phone] Adonay Haq MD Unavailable +1- Denilson Srinivasan MD Unavailable + [phone] Jason Alvares MD Unavailable Ruth Riddle DPM, Podiatry /Foot and Ankle Surgery Unavailable Omar Carmona MD Primary Care Provider +1- Jignesh Mathias MD Unavailable Adonay Haq MD Unavailable +1- Omar Carmona MD Unavailable +[phone] Jason Alvares MD Unavailable Jignesh Mathias MD Unavailable Ayad Lopez PhD LP Unavailable [phone] Gavi Nieto PA-C Unavailable Encounter Details Date Type Department Care Team (Late st Contact Info) Description 03/16/2023 [facility] Endocrinology Clinic [address] [place] [address] Shara Payne, RN Social History [...] Answer Date Recorded PHQ-2 Score 2 03/15/2023 [facility] - [...] Sex Assigned at Female 09/12/2020 12:05 PM ADJUNCT FACULTY FOR MEDICAL TERMINOLOGY Legal Sex Female 3:26 AM ADJUNCT FACULTY FOR MEDICAL TERMINOLOGY Gender Identity Female 09/12/2020 12:05 PM ADJUNCT FACULTY FOR MEDICAL TERMINOLOGY Sexual Orientation Straight 12/19/2021 10 :44 AM [...] st Contact Info) Description 06/13/2025 6:00 PM ADJUNCT FACULTY FOR MEDICAL TERMINOLOGY Ancillary Procedure [facility] CT Clinic [address] [phone] Omar Carmona MD [address] [place] [address] 659855 06/14/2025 4:00 PM ADJUNCT FACULTY FOR MEDICAL TERMINOLOGY Office Visit [facility] Care [address] [phone] Omar Carmona MD [address] [place] [address] 836345 06/15/2025 12:45 PM ADJUNCT FACULTY FOR MEDICAL TERMINOLOGY Therapy Visit [facility] Services [address] [phone] Jason Alvares MD [address] [place] [address] 295 [place], [place] 644825 Chaya Castillo OTR [address] [address] 06/19/2025 10:30 AM ADJUNCT FACULTY FOR MEDICAL TERMINOLOGY Virtual Visit [facility] Primary Care [address] [phone] Omar Carmona MD [address] [place] [address] 881895 Gerson Santos, [facility] 06/26/2025 11:00 AM ADJUNCT FACULTY FOR MEDICAL TERMINOLOGY Therapy Visit [facility] 150 [place] [phone] Jason Alvares MD [address] [place] [address] 316615 Chaya Castillo, OTR [address] [address] 07/09/2025 12:45 PM ADJUNCT FACULTY FOR MEDICAL TERMINOLOGY Therapy Visit [address] [phone] Jason Alvares MD [address] [place] [address] 964325 Chaya Castillo OTMari [address] [address] 07/18/2025 3:00 PM ADJUNCT FACULTY FOR MEDICAL TERMINOLOGY Office Visit [facility] Heart Clinic [address] [phone] Adonay Chapman APRN [address] [address] 11/05/2025 12:30 PM CDT Lab [facility] Lab [address] [phone] 11/05/2025 1:45 PM CDT Office Visit [facility] Dermatology Clinic [address] 3rd [place] [phone] Gavi Nieto PA-C Dermatology [address] [place] [address] 11/20/2025 10:30 AM CDT Virtual Visit [address] [address] Marquise Hanley MD 9 [place] [address] documented as of this encounter Goals Goal [...] documented as of this encounter Care Teams Weaver Hand Loom Relationship Specialty Start Date End Date Rio Jaquez MD [address] [place] [address] [address] 4 [place] [address] PCP - General Family Practice 12/02/10 07/13/24 Omar Carmona MD [address] [place] [address] 27897 PCP - General Family Medicine 07/14/24 Barry Kilpatrick MD [address] [place] [address] [id number] [place] [address] Neurology 07/19/14 Michelle Henderson I, RN Nurse Coordinator Neurology 07/19/14 Rio Jaquez MD [address] [place] [address] 4 [place], [place] 385145 Family Practice 10/15/14 Jemima Jaramillo MD tobacco classer 11/20/14 Kelley Chin, TANIA [facility] [address] [place] [address] 403585 Nurse Coordinator Cardiology 11/04/15 Sydnee Saleem MD [address] [place] [address] 508 [place], [place] 239025 Cardiology 11/04/15 Karlene Moya MD [address] [place] [address] 439175 Ophthalmology 06/24/17 Wilbert Quintero, OD [address] [place] [address] 817365 Optometry 06/24/17 Rod Gauthier DPM [address] [place] [address] 236155 Director Medical Economics Primary Podiatric Medicine 06/21/18 Jan Mahmood MD [address] [place] [address] 2A [place], [place] [phone] Gastroenterology 11/05/20 Brandt Quintana MD [address] [place] [address] 15936 Resident 11/05/20 Jan Mahmood MD 516 [facility] 2A [place], [place] 741705 Assigned Gastroenterology Provider 12/01/20 Rio Jaquez MD [address] [place] [address] 443525 Assigned PCP 11/17/20 09/30/24 Dom Eason MD [address] [place] [address]31 Internal Medicine 12/02/20 Jayla Plaza, RN Specialty Attendant [facility] Hepatology 01/09/21 02/13/24 Jaimie Vernon, RN Specialty Attendant [facility] Cardiology 10/28/21 Ruth Riddle DPM, Podiatry/Foot and Ankle Surgery [address] [address] Assigned Musculoskeletal Provider 11/30/21 09/30/23 Marquise Hanley MD [address] [place] [address] 87605 Endocrinology, Diabetes, and Metabolism 03/05/22 Vlad Ramey MD [address] [place] [address] 998715 Cardiovascular Disease 05/07/22 Joesph Crowe MD [address] [place] [address] 70233 Surgery 05/07/22 Luis Arrington MD [address] [place] [address] 11947 Assigned Neuroscience Provider 05/16/22 05/14/23 Michelle Padilla, RN Specialty Attendant [facility] Cardiology 07/03/22 Vlad Ramey MD [address] [place] [address] 50805 Assigned Heart and Vascular Provider 07/25/22 05/28/23 Marquise Hanley MD [address] [place] [address] 07732 Assigned Endocrinology Provider 08/15/22 Wagner Oliver MD 6401 [place] [address] Critical Care 12/15/22 Laura Epperson NP [address] [place] [address] 1932 [place] [address] Assigned Nephrology Provider 02/20/23 08/30/24 Thom Taveras MD [address] [place] [address]69 Assigned Cancer Care Provider 02/06/23 08/20/23 Joesph Crowe MD [address] [place] [address] 68915 Surgery 03/17/23 Joesph Crowe MD [address] [place] [address] 36905 Assigned Surgical Provider 04/03/23 09/30/24 Adonay Haq MD [address] [place] [address] 92824 Internal Medicine 06/14/23October, Denilson Jackson MD [address] [place] [address] Assigned Heart and Vascular Provider 05/29/23 11/28/24 Jason Alvares MD [address] [place] [address] 33107 Assigned Neuroscience Provider 05/15/23 11/28/24 Ruth Riddle DPM, Podiatry/Foot and Ankle Surgery [address] [place] [address] Assigned Musculoskeletal Provider 10/22/23 Jignesh Mathias MD [address] [place] [address]67 Gastroenterology 09/25/24 Adonay Haq MD [address] [place] [address] 73035 Assigned PCP 10/01/24 12/28/24 Omar Carmona MD [address] [place] [address] 29319 Assigned PCP 12/29/24 Jason Alvares MD [address] [place] [address] 90899 Assigned Neuroscience Provider 12/29/24 Jignesh Mathias MD 9 [place] [address] Assigned Surgical Provider 12/29/24 Ayad Lopez, PhD LP [address] [place] [address] 289315 Assigned Behavioral Health Provider 02/28/25 Gavi Nieto, PANavinC [address] [place] [address] 139995 Physician Reinspector Dermatology 03/19/25 documented as of this encounter
--- OUTSIDE RECORDS SUMMARY | 2025-06-08 22:52 | XMS_ITS | Encounter Summary ---
Author Organization [facility] Address [address] [place] [address] Care Team Providers Care Custom Clothier Name Role Phone Rio Jaquez MD Primary Care Provider + [phone] Barry Kilpatrick MD Unavailable Michelle Henderson RN Unavailable +[phone] Rio Jaquez MD Unavailable +[phone] Jemima Jaramillo MD Unavailable Unavai Kelley Bautista RN Unavailable +[phone] Sydnee Saleem MD Unavailable +[phone] Karlene Moya MD Unavailable +[phone] Wilbert Quintero OD Unavailable +[phone] Rod Gauthier DPM Unavailable +[phone] Nallely Hogue RN Unavailable Unavailable Jan Mahmood MD Unavailable +[phone] Brandt Quintana MD Unavailable +[phone] Jan Mahmood MD Unavailable +[phone] Rio Jaquez MD Unavailable +[phone] Dom Eason MD Unavailable +[phone] Jayla Plaza RN Unavailable +[phone] Sydnee [...] Unavailable +[phone] Dom Eason MD Unavailable +[phone] Wagner Oliver MD Unavailable +[phone] Laura Epperson NP Unavailable +[phone] Thom Taveras MD Unavailable +[phone] Joesph Crowe MD Unavailable + [phone] Joesph Crowe MD Unavailable + [phone] Adonay Haq MD Unavailable +[phone] Denilson Srinivasan MD Unavailable + [phone] Jason Alvares MD Unavailable Ruth Riddle DPM, Podiatry /Foot and Ankle Surgery Unavailable Omar Carmona MD Primary Care Provider +1- Jignesh Mathias MD Unavailable Adonay Haq MD Unavailable +1- Omar Carmona MD Unavailable +[phone] Jason Alvares MD Unavailable Jignesh Mathias MD Unavailable Ayad Lopez PhD Unavailable +[phone] Gavi Nieto-C Unavailable +[phone] Reason for Visit * Reason Onset Date Comments MyChart Communication 03/17/2022 Encounter Details Date Type Department Care Team (Latest Contact Info) Description 03/17/[address] [facility] [address] 4th [place] [address] Rio Jaquez MD [address] [place] [address] 4 [place] [address] MyChart Communication Social History Tobacco [...] Answer Date Recorded PHQ-2 Score 1 02/16/2022 [facility] - [...] Assigned at Female 09/12/2020 12:05 PM PIPE CAULKER Legal Sex Female 3:26 AM PIPE CAULKER Gender Identity Female 09/12/2020 12:05 PM PIPE CAULKER Sexual Orientation Straight 12/19/2021 10 :44 AM [...] Contact Info) Description 06/13/2025 6:00 PM PIPE CAULKER Ancillary Procedure [facility] [address]st [place] [phone] Omar Carmona MD [address] [place] [address] 06/14/2025 4:00 PM PIPE CAULKER Office Visit [facility] [address] 4th [place] [phone] Omar Carmona MD [address] [place] [address] 06/15/2025 12:45 PM PIPE CAULKER Therapy Visit [facility] [address] [phone] Jason Alvares MD [address] [place] [address] 640765 Chaya Castillo OTR [facility] [address] [place] [address] 06/19/2025 10:30 AM PIPE CAULKER Virtual Visit [facility] [address] [place] [address] 4th [place] [address] Omar Carmona MD [address] [place] [address] Gerson Santos, [facility] 06/26/2025 11:00 AM PIPE CAULKER Therapy Visit [facility] 150 [place] [phone] Jason Alvares MD [address] [place] [address] [phone] Chaya Castillo [facility] 150 [place], [place] 266917 07/09/2025 12:45 PM PIPE CAULKER Therapy Visit [facility] 150 [place] [phone] Jason Alvares MD [address] [place] [address] Chaya Castillo OTR [facility] 150 [place], [place] 320637 07/18/2025 3:00 PM PIPE CAULKER Office [facility] [address] [address] Adonay Chapman APRN [address] [address] 11/05/2025 12:[address] [facility] [address] [place] [phone] 11/05/2025 1:45 PM CDT Office Visit [facility] [address] 3rd [place] [phone] Gavi Nieto PANavinC Dermatology [address] [place] [address] 11/20/2025 10:30 AM CDT Virtual Visit [address] [phone] Marquise Hanley MD [address] [place] [address] documented as of this encounter Goals Goal [...] Noted Time PHQ-9 Depression Total Score: 4 05/21/20 25 9:21 AM CDT documented as of this encounter Care Teams Custom Clothier Relationship Specialty Start Date End Date Rio Jaquez MD [address] [place] [address] PCP - General Family Practice 12/02/10 07/13/24 Omar Carmona MD [address] [place] [address] [phone] PCP - General Family Medicine 07/14/24 Barry Kilpatrick MD [address] [place] [address] [id number] [place], [place] 714675 Neurology 07/19/14 Michelle Henderson I, RN Nurse Coordinator Neurology 07/19/14 Rio Jaquez MD [address] [place] [address] 4 [place], [place] 105325 Family Practice 10/15/14 Jemima Jaramillo MD it senior software engineer java 11/20/14 Kelley Chin, TANIA [address] [phone] Nurse Coordinator Cardiology 11/04/15 Sydnee Saleem MD [address] [place] [address] 508 [place], [place] 190995 Cardiology 11/04/15 Karlene Moya MD [address] [place] [address] Ophthalmology 06/24/17 Wilbert Quintero, OD [address] [place] [address] Optometry 06/24/17 Rod Gauthier DPM [address] [place] [address] Wool Shearer Primary Podiatric Medicine 06/21/18 Nallely Hogue, RN Registered Nurse 02/20/19 11/23/22 Jan Mahmood MD [address] [place] [address] 2A [place] [address] Gastroenterology 11/05/20 Brandt Quintana MD [address] [place] [address] Resident 11/05/20 Jan Mahmood MD [address] [place] [address] 2A [place] [address] Assigned Gastroenterology Provider 12/01/20 Rio Jaquez MD 9 [facility] 4 [place] [address] Assigned PCP 11/17/20 09/30/24 Dom Eason MD [address] [place] [address] 353 [place] [address] Internal Medicine 12/02/20 Jayla Plaza, RN Specialty Mechanical Estimator Hepatology 01/09/21 02/13/24 Sydnee Saleem MD 6561 [facility] [address] [place] [address] Assigned Heart and Vascular Provider 02/02/21 07/24/22 Jaimie Vernon, TANIA Specialty Mechanical Estimator Cardiology 10/28/21 Ruth Riddle DPM, Podiatry/Foot and Ankle Surgery 88140 [facility] 300 [place] [address] Assigned Musculoskeletal Provider 11/30/21 09/30/23 Jason Alvares MD [address] [place] [address] Assigned Neuroscience Provider 01/03/22 05/15/22 Marquise Hanley MD [address] [place] [address] 8[address] Endocrinology, Diabetes, and Metabolism 03/05/22 Vlad Ramey MD [address] [place] [address] Cardiovascular Disease 05/07/22 Joesph Crowe MD [address] [place] [address] 31209 Surgery 05/07/22 Luis Arrington MD [address] [place] [address] 40572 Assigned Neuroscience Provider 05/16/22 05/14/23 Michelle Padilla RN Specialty Mechanical Estimator Cardiology 07/03/22 Vlad Ramey MD [address] [place] [address] 84084 Assigned Heart and Vascular Provider 07/25/22 05/28/23 Marquise Hanley MD [address] [place] [address] Assigned Endocrinology Provider 08/15/22 Dom Eason MD [address] [place] [address] [place] [address] Assigned Nephrology Provider 11/28/22 02/19/23 Wagner Oliver MD [address] [place] [address] Critical Care 12/15/22 Laura Epperson, LULU 717 [facility] 1932 [place] [address] Assigned Nephrology Provider 02/20/23 08/30/24 Thom Taveras MD [address] [facility], [address] [place] [address] Assigned Cancer Care Provider 02/06/23 08/20/23 Joesph Crowe MD [address] [place] [address] Surgery 03/17/23 Joesph Crowe MD [address] [place] [address] Assigned Surgical Provider 04/03/23 09/30/24 Adonay Haq MD 9 [place] [address] Internal Medicine 06/14/23OctoberDenilson MD 6405 [facility] [address] [place] [address] Assigned Heart and Vascular Provider 05/29/23 11/28/24 Jason Alvares MD 420 [facility] 295 [place], [place] 516525 Assigned Neuroscience Provider 05/15/23 11/28/24 Ruth iRddle DPM, Podiatry/Foot and Ankle Surgery [address] [place] [address] Assigned Musculoskeletal Provider 10/22/23 Jignesh Mathias MD [address] [place] [address] 723465 Gastroenterology 09/25/24 Adonay Haq MD [address] [place] [address] 376075 Assigned PCP 10/01/24 12/28/24 Omar Carmona MD [address] [place] [address] 357645 Assigned PCP 12/29/24 Jason Alvares MD [address] [place] [address] 295 [place], [place] 382855 Assigned Neuroscience Provider 12/29/24 Jignesh Mathias MD [address] [place] [address] 71333 Assigned Surgical Provider 12/29/24 Ayad Lopez, PhD LP [address] [place] [address] 723005 Assigned Behavioral Health Provider 02/28/25 Gavi Nieto PA-C [address] [place] [address] Physician Director Of Early Childhood Dermatology 03/19/25 documented as of this encounter
--- OUTSIDE RECORDS SUMMARY | 2025-06-08 22:52 | XMS_ITS | Encounter Summary ---
Author Organization [facility] Address [address] [place] [address] 8[address]64 Care Team Providers Care Statistical Clerk Name Role Phone Rio Jaquez MD Primary Care Provider + [phone] Barry Kilpatrick MD Unavailable Michelle Henderson RN Unavailable [phone] Rio Jaquez MD Unavailable +[phone] Jemima Jaramillo MD Unavailable Unavai Kelley Bautista RN Unavailable +[phone] Sydnee Saleem MD Unavailable +[phone] Karlene Moya MD Unavailable +[phone] Wilbert Quintero OD Unavailable +[phone] Rod GauthierM Unavailable +[phone] Nallely Hogue RN Unavailable Unavailable Larisa Vargas RN Unavailable Unavailable Jan Mahmood MD Unavailable +[phone] Brandt Quintana MD Unavailable +[phone] Jan Mahmood MD Unavailable +[phone] Rio Jaquez MD Unavailable + [phone] Dom Eason MD Unavailable +[phone] Jayla Plaza RN Unavailable +[phone] Sydnee Saleem MD Unavailable Cristian Barragan MD Unavailable Jaimie Vernon RN Unavailable Unavailable Ruth Riddle DPM, Podiatry /Foot and Ankle Surgery Unavailable Jason Alvares MD Unavailable Marquise Hanley MD Unavailable +[phone] Vlad Ramey MD Unavailable +[phone] Joesph Crowe MD Unavailable + [phone] Luis Arrington MD Unavailable +[phone] Michelle Padilla RN Unavailable Unavaila ble Vlad Rmaey MD Unavailable +[phone] Marquise Hanley MD Unavailable +[phone] Dom Eason MD Unavailable +[phone] Wagner Oliver MD Unavailable +[phone] Laura Epperson NP Unavailable +[phone] Thom Taveras MD Unavailable +[phone] Joesph Crowe MD Unavailable +[phone] Joesph Crowe MD Unavailable + [phone] Adonay Haq MD Unavailable +[phone] Denilson Srinivasan MD Unavailable + [phone] Jason Alvares MD Unavailable Ruth Riddle DPM, Podiatry /Foot and Ankle Surgery Unavailable Omar Carmona MD Primary Care Provider [phone] Jignesh Mathias MD Unavailable Adonay Haq MD Unavailable Omar Carmona MD Unavailable +[phone] Jason Alvares MD Unavailable Jignesh Mathias MD Unavailable Ayad Lopez PhD LP Unavailable +[phone] Gavi Nieto PA-C Unavailable +[phone] Encounter Details Date Type Department Care Team (Late st Contact Info) Description 02/06/2022 [facility] [address] [place] [address] Jason Alvares MD 420 [facility] 295 [place] [address] Social History Tobacco Use Types [...] than three times a week 08/27/2021 Attends [employer] Not on file 08/27 Do you [...] Answer Date Recorded PHQ-2 Score 2 08/27/2021 [facility]at [facility] - [...] Sex Assigned at Female 09/12/2020 12:05 PM DRY TRANSFER MAN Legal Sex Female 3:26 AM DRY TRANSFER MAN Gender Identity Female 09/12/2020 12:05 PM DRY TRANSFER MAN Sexual Orientation Straight 12/19/2021 10 :44 [...] st Contact Info) Description 06/13/2025 6:00 PM DRY TRANSFER MAN Ancillary Procedure [facility] CT Clinic [address]st [place] [phone] Omar Carmona MD [address] [place] [address] 06/14/2025 4:00 PM DRY TRANSFER MAN Office Visit [facility] [address] 4th [place] [phone] Omar Carmona MD [address] [place] [address] 06/15/2025 12:45 PM DRY TRANSFER MAN Therapy Visit [facility] [address] [address] Jason Alvares MD [address] [place] [address] 101985 Chaya Castillo OTR [facility] 150 [place] [address] 06/19/2025 10:30 AM DRY TRANSFER MAN Virtual Visit [facility] [address] [place] [address] 4th [place] [phone] Omar Carmona MD [address] [place] [address] [phone] Gerson Santos [facility] 06/26/2025 11:00 AM DRY TRANSFER MAN Therapy Visit [facility] 150 [place] [phone] Jason Alvares MD [address] [place] [address] [facility] 150 [place] [address] 07/09/2025 12:45 PM DRY TRANSFER MAN Therapy Visit [facility] 150 [place] [phone] Jason Alvares MD [address] [place] [address] Chaya Castillo [facility] 150 [place] [address] 07/18/2025 3:00 PM DRY TRANSFER MAN Office Visit [facility] [address] [phone] Adonay Chapman APRN [address] [address] 11/05/2025 12:30 PM CDT Lab [facility] [address]st [place] [phone] 11/05/2025 1:45 PM CDT Office Visit [facility] [address] 3rd [place] [phone] Gavi Nieto PA-C Dermatology [address] [place] [address] 11/20/2025 10:30 AM CDT Virtual Visit [address] [phone] Marquise Hanley MD [address] [place] [address]65 documented as of this encounter Goals Goal [...] Total Score: 5 08/27/19 22 9:25 AM DRY TRANSFER MAN documented as of this encounter Care Teams Statistical Clerk Relationship Specialty Start Date End Date Rio Jaquez MD [address] [place] [address] PCP - General Family Practice 12/02/10 07/13/24 Omar Carmona MD 9 [place], [place] 398115 PCP - General Family Medicine 07/14/24 Barry Kilpatrick MD [address] [place] [address] [id number] [place], [place] 371045 Neurology 07/19/14 Michelle Henderson I, RN Nurse Coordinator Neurology 07/19/14 Rio Jaquez MD [address] [place] [address] 4 [place], [place] 088705 Family Practice 10/15/14 Jemima Jaramillo MD egg producer 11/20/14 Kelley Chin, TANIA [facility] [address] [place] [address] [phone] Nurse Coordinator Cardiology 11/04/15 Sydnee Saleem MD [address] [place] [address] 508 [place], [place] 665095 Cardiology 11/04/15 Karlene Moya MD [address] [place] [address] 347145 Ophthalmology 06/24/17 Wilbert Quintero, OD [address] [place] [address] Optometry 06/24/17 Rod Gauthier DPM [address] [place] [address] 435065 Assistant Dean Primary Podiatric Medicine 06/21/18 Nallely Hogue, RN Registered Nurse 02/20/19 11/23/22 Larisa Vargas, TANIA Specialty Facility Environmental Technician Cardiology 04/18/19 03/06/22 Jan Mahmood MD 516 [facility] 2A [place] [address] Gastroenterology 11/05/20 Brandt Quintana MD 1414 [place] [address] Resident 11/05/20 Jan Mahmood MD 516 [facility] 2A [place] [address] Assigned Gastroenterology Provider 12/01/20 Rio Jaquez MD 909 [facility] 4 [place], [place] 642125 Assigned PCP 11/17/20 09/30/24 Dom Eason MD 717 [facility] 353 [place], [place] 588724 Internal Medicine 12/02/20 Jayla Plaza, RN Specialty Facility Environmental Technician Hepatology 01/09/21 02/13/24 Sydnee Saleem MD [address] [address] Assigned Heart and Vascular Provider 02/02/21 07/24/22 Cristian Barragan MD 2945 [place] [address] Assigned Infectious Disease Provider 02/21/21 03/06/22 Jaimie Vernon, RN Specialty Facility Environmental Technician Cardiology 10/28/21 Ruth Riddle DPM, Podiatry/Foot and Ankle Surgery [address] [place] [address] Assigned Musculoskeletal Provider 11/30/21 09/30/23 Jason Alvares MD [address] [place] [address]63 Assigned Neuroscience Provider 01/03/22 05/15/22 Marquise Hanley MD [address] [place] [address] Endocrinology, Diabetes, and Metabolism 03/05/22 Vlad Ramey MD [address] [place] [address] 259665 Cardiovascular Disease 05/07/22 Joesph Crowe MD [address] [place] [address] 52935 Surgery 05/07/22 Luis Arrington MD [address] [place] [address] 65263 Assigned Neuroscience Provider 05/16/22 05/14/23 Michelle Padilla RN Specialty Facility Environmental Technician Cardiology 07/03/22 Vlad Ramey MD [address] [place] [address] 625525 Assigned Heart and Vascular Provider 07/25/22 05/28/23 Marquise Hanley MD 9 [place] [address] Assigned Endocrinology Provider 08/15/22 Dom Eason MD 717 [facility] 353 [place] [address] Assigned Nephrology Provider 11/28/22 02/19/23 Wagner Oliver MD [address] [place] [address] Critical Care 12/15/22 Laura Epperson NP [address] [place] [address] 1932 [place] [address] Assigned Nephrology Provider 02/20/23 08/30/24 Thom Taveras MD [address] [place] [address], [address] [address] Assigned Cancer Care Provider 02/06/23 08/20/23 Joesph Crowe MD [address] [place] [address] Surgery 03/17/23 Joesph Crowe MD [address] [place] [address] 23139 Assigned Surgical Provider 04/03/23 09/30/24 Adonay Haq MD [address] [place] [address]43 Internal Medicine 06/14/23October, Denilson Jackson MD [address] [place], [place] 232145 Assigned Heart and Vascular Provider 05/29/23 11/28/24 Jason Alvares MD [address] [place] [address]60 Assigned Neuroscience Provider 05/15/23 11/28/24 Ruth Riddle DPM, Podiatry/Foot and Ankle Surgery [address] [place] [place] [address] Assigned Musculoskeletal Provider 10/22/23 Jignesh Mathias MD [address] [place] [address] 9[address]65 Gastroenterology 09/25/24 Adonay Haq MD [address] [place] [address] 710935 Assigned PCP 10/01/24 12/28/24 Omar Carmona MD [address] [place] [address] 93121 Assigned PCP 12/29/24 Jason Alvares MD [address] [place] [address] 469845 Assigned Neuroscience Provider 12/29/24 Jignesh Mathias MD [address] [place] [address] 93863 Assigned Surgical Provider 12/29/24 Ayad Lopez, PhD LP [address] [place] [address] 763255 Assigned Behavioral Health Provider 02/28/25 Gavi Nieto PA-C [address] [place] [address] [phone] Physician Shredder Operator Dermatology 03/19/25 documented as of this encounter
--- OUTSIDE RECORDS SUMMARY | 2025-06-08 22:52 | XMS_ITS | Encounter Summary ---
Author Organization [facility] Address [address] [place] [address] Care Team Providers Care Lacer And Tier Name Role Phone Rio Jaquez MD Primary Care Provider Barry Kilpatrick MD Unavailable Michelle Henderson RN Unavailable [phone] Rio Jaquez MD Unavailable +[phone] Jemima Jaramillo MD Unavailable Rudolph Vinson MD Unavailable +[phone] Kelley Chin RN Unavailable +[phone] Sydnee Saleem MD Unavailable +[phone] [facility]ian MD Unavailable +[phone] Alexandria Nelson RN Unavailable +[phone] Karlene Moya MD Unavailable +[phone] Wilbert Quintero OD Unavailable +[phone] Rod Gauthier DPM Unavailable + [phone] Kerrie Verdin PA-C Unavailable +[phone] Nallely Hogue RN Unavailable Unavailable Larisa Vargas RN Unavailable Unavailable Rio Jaquez MD Unavailable +[phone] Ruth Yarbrough MD Unavailable +[phone] Francisco Lott MD Unavailable +[phone] Frida Grace MD Unavailable +[phone] Sydnee Saleem MD Unavailable +[phone] Greg Ortega MD Unavailable +[phone] Frida Grace MD Unavailable +[phone] Jan Mahmood MD Unavailable +[phone] Brandt Quintana MD Unavailable +[phone] Jan Mahmood MD Unavailable +[phone] Rio Jaquez MD Unavailable +[phone] Dom Eason MD Unavailable + [phone] Jayla Plaza RN Unavailable +[phone] Jayla Plaza RN Unavailable +[phone] Sydnee Saleem MD Unavailable +[phone] Phan Coello MD Unavailable Unavailable Cristian Barragan MD Unavailable +[phone] Dom Eason MD Unavailable + [phone] Jaimie Vernon RN Unavailable Unavailable Ruth Riddle DPM, Podiatry /Foot and Ankle Surgery Unavailable Luis Arrington MD Unavailable +[phone] Jason lAvares MD Unavailable Marquise Hanley MD Unavailable +[phone] Vlad Ramey MD Unavailable +[phone] Joesph Crowe MD Unavailable +[phone] Luis Arrington MD Unavailable +[phone] Michelle Padilla RN Unavailable Unavaila ble Vlad Ramey MD Unavailable +[phone] Marquise Hanley MD Unavailable +[phone] Dom Eason MD Unavailable +[phone] Wagner Oliver MD Unavailable +[phone] Laura Epperson NP Unavailable +[phone] Thom Taveras MD Unavailable +[phone] Joesph Crowe MD Unavailable + [phone] Joesph Crowe MD Unavailable +[phone] Adonay Haq MD Unavailable +[phone] OctoberDenilson MD Unavailable + [phone] Jason Alvares MD Unavailable Ruth RiddleM, Podiatry /Foot and Ankle Surgery Unavailable Omar Carmona MD Primary Care Provider [phone] Jignesh Mathias MD Unavailable Adonay Haq MD Unavailable +[phone] Omar Carmona MD Unavailable +[phone] Jason Alvares MD Unavailable Jignesh Mathias MD Unavailable Ayad Lopez PhD LP Unavailable +[phone] Gavi Nieto PA-C Unavailable +[phone] Encounter Details Date Type Department Care Team (Late st Contact Info) Description 02/11/2017 [facility] Wound Care [address] [facility] [address]th [place] [address] Rod Gauthier DPM 909 [place] [address] Social History Tobacco Use Types Packs/Day Years Used Date Smoking Tobacco: Every Day Cigarettes 1 42.8 Started: 08/09/1982 Smokeless Tobacco: Never Alcohol Use Standard Drinks/Week Comments Yes 0 (1 standard drink = 0.6 oz pur e alcohol) occ Comments No Sex and Gender Information Value Date Recorded Sex Assigned at Female 09/12/2020 12:[address] SUPERVISOR Legal Sex Female 3:[address] SUPERVISOR Gender Identity Female 09/12/2020 12:[address] SUPERVISOR Sexual Orientation Straight 12/19/2021 10 :44 AM CDT Occupation Industry Job Start Date Job End Date on disability for FMS Not on file Not on file Not on file documented as of this encounter Plan of Treatment Upcoming Encounters Date Type Department Care Team (Late st Contact Info) Description 06/13/2025 6:[address] SUPERVISOR Ancillary Procedure [facility] [address] [place] [phone] Omar Carmona MD [address] [place] [address] 659435 06/14/2025 4:[address] SUPERVISOR Office Visit [facility] [address] [place] [phone] Omar Carmona MD [address] [place] [address] 916415 06/15/2025 12:[address] SUPERVISOR Therapy Visit [facility] 150 [place] [phone] Jason Alvares MD [address] [place] [address] 295 [place], [place] 757645 Chaya Castillo OTR [facility] 150 [place] [address] 06/19/2025 10:[address] SUPERVISOR Virtual Visit [facility] [address] [place] [address] 4th [place] [phone] Omar Carmona MD [address] [place] [address] 048775 Gerson Santos, [facility] 06/26/2025 11:[address] SUPERVISOR Therapy Visit [facility] 150 [place] [phone] Jason Alvares MD [address] [place] [address] 555195 Chaya Castillo, OTR [address] [address] 07/09/2025 12:[address] SUPERVISOR Therapy Visit [facility] 150 [place] [phone] Jason Alvares MD [address] [place] [address] 721445 Chaya Castillo, OTR [address] [address] 07/18/2025 3:[address] SUPERVISOR Office Visit [facility] [address] [phone] Adonay Chapman APRN [facility] 500 [place], [place] 016125 11/05/2025 12:30 PM CDT Lab [facility] Lab [address] [place] [phone] 11/05/2025 1:45 PM CDT Office Visit [facility] Dermatology Clinic [address] 3rd [place] [phone] Gavi Nieto PA-C Dermatology [address] [place] [address] 11/20/2025 10:30 AM CDT Virtual Visit [address] [place] [address] Marquise Hanley MD [address] [place] [address] documented as of this encounter Goals Goal [...] documented as of this encounter Care Teams Lacer And Tier Relationship Specialty Start Date End Date Rio Jaquez MD [address] [place] [address] [address] [place] [address] PCP - General Family Practice 12/02/10 07/13/24 Omar Carmona MD [address] [place] [address] 199155 PCP - General Family Medicine 07/14/24 Barry Kilpatrick MD [address] [place] [address] [id number] [place], [place] [phone] Neurology 07/19/14 Michelle Henderson I, RN Nurse Coordinator Neurology 07/19/14 Rio Jaquez MD 909 [facility] 4 [place], [place] 755375 Family Practice 10/15/14 Jemima Jaramillo MD human resources administrator 11/20/14 Rudolph Leal MD Student in organized health care education/training program 11/27/14 07/04/18 Kelley Chin RN [facility] 909 [place], [place] 590565 Nurse Coordinator Cardiology 11/04/15 Sydnee Saleem MD 420 [facility] 508 [place], [place] 017955 Cardiology 11/04/15 Eduin Fraga MD 420 [facility] 480 [place], [place] 199215 Hematology 09/17/16 02/25/17 Alexandria Nelson, RN Nurse Coordinator Hematology & Oncology 09/17/16 02/25/17 Karlene Moya MD 516 [place] [address] Ophthalmology 06/24/17 Wilbert Quintero, OD 909 [place] [address] Optometry 06/24/17 Rod Gauthier DPM [address] [place] [address] 858515 Workers Compensation Adjuster Primary Podiatric Medicine 06/21/18 Kerrie Verdin PA-C [address] [place] [address] 349155 Physician Health Services Manager Physician Health Services Manager 06/21/1808/07 Nallely Hogue, RN Registered Nurse 02/20/19 11/23/22 Larisa Vargas, TANIA Specialty Debt And Budget Counselor Cardiology 04/18/19 03/06/22 Rio Jaquez MD [address] [place] [address] 198175 Assigned PCP 12/28/19 11/16/20 Ruth Yarbrough MD [address] [place] [address] 101 [place], [place] 398665 Assigned Endocrinology Provider 05/31/20 09/28/20 Francisco Lott MD [address] [place] [address] 88 [place], [place] 789605 Assigned Rheumatology Provider 05/31/20 12/13/21 Frida Grace MD [facility] [place] [address] Assigned Pediatric Specialist Provider 05/31/20 09/08/20 Sydnee Saleem MD [address] [facility] [address] [place] [address] Assigned Heart and Vascular Provider 05/31/20 10/22/20 Greg Ortega MD 909 [place] [address] Assigned Surgical Provider 06/23/20 12/06/21 Frida Grace MD [facility] [facility] [place] [address] Assigned Surgical Provider 05/31/20 06/22/20 Jan Mahmood MD 6 [facility] 2A [place] [address] Gastroenterology 11/05/20 Brandt Quintana MD [facility]4 [place] [address] Resident 11/05/20 Jan Mahmood MD 6 [facility] 2[address] [place] [address] Assigned Gastroenterology Provider 12/01/20 Rio Jaquez MD 909 [facility] 4 [place], [place] 120595 Assigned PCP 11/17/20 09/30/24 Dom Eason MD 717 [facility] 353 [place], [place] 291294 Internal Medicine 12/02/20 Jayla Plaza, RN Specialty Debt And Budget Counselor Hepatology 01/09/21 02/13/24 Jayla Plaza, RN Specialty Debt And Budget Counselor Hepatology 01/10/21 01/10/21 Sydnee Saleem MD [address] [facility] [address] [place] [address] [phone] Assigned Heart and Vascular Provider 02/02/21 07/24/22 Phan Coello MD Assigned Neuroscience Provider 02/21/21 11/22/21 Cristian Barragan MD [address] [place] [address] Assigned Infectious Disease Provider 02/21/21 03/06/22 Dom Eason MD [address] [place] [address] 353 [place] [address] Assigned Nephrology Provider 04/20/21 01/02/22 Jaimie Vernon, TANIA Specialty Debt And Budget Counselor Cardiology 10/28/21 Ruth Riddle DPM, Podiatry/Foot and Ankle Surgery [address] [place] [address] 071367 Assigned Musculoskeletal Provider 11/30/21 09/30/23 Luis Arrington MD [address] [place] [address] 823995 Assigned Neuroscience Provider 11/23/21 01/02/22 Jason Alvares MD [address] [place] [address] 295 [place], [place] [phone] Assigned Neuroscience Provider 01/03/22 05/15/22 Marquise Hanley MD [address] [place] [address] 830975 Endocrinology, Diabetes, and Metabolism 03/05/22 Vlad Ramey MD [address] [place] [address] Cardiovascular Disease 05/07/22 Joesph Crowe MD [address] [place] [address]85 Surgery 05/07/22 Luis Arrington MD [address] [place] [address] 85453 Assigned Neuroscience Provider 05/16/22 05/14/23 Michelle Padilla RN Specialty Debt And Budget Counselor Cardiology 07/03/22 Vlad Ramey MD [address] [place] [address] 87271 Assigned Heart and Vascular Provider 07/25/22 05/28/23 Marquise Hanley MD [address] [place] [address]307 Assigned Endocrinology Provider 08/15/22 Dom Eason MD [address] [place] [address] Assigned Nephrology Provider 11/28/22 02/19/23 Wagner Oliver MD [address] [place] [address] Critical Care 12/15/22 Laura Epperson NP [address] [place] [address] 1932 [place] [address] Assigned Nephrology Provider 02/20/23 08/30/24 Thom Taveras MD [address] [place], [place] 660[address]05 [place] [address] Assigned Cancer Care Provider 02/06/23 08/20/23 Joesph Crowe MD [address] [place] [address] MD Surgery 03/17/23 Joesph Crowe MD [address] [place] [address] 40056 Assigned Surgical Provider 04/03/23 09/30/24 Adonay Haq MD [address] [place] [address] Internal Medicine 06/14/23OctoberDenilson MD 6405 [facility] [address] [place] [address] Assigned Heart and Vascular Provider 05/29/23 11/28/24 Jason Alvares MD [address] [place] [address] 295 [place] [address] Assigned Neuroscience Provider 05/15/23 11/28/24 Ruth Riddle DPM, Podiatry/Foot and Ankle Surgery [address] [place] [address] Assigned Musculoskeletal Provider 10/22/23 Jignesh Mathias MD [address] [place] [address] Gastroenterology 09/25/24 Adonay Haq MD [address] [place] [address] 984345 Assigned PCP 10/01/24 12/28/24 Omar Carmona MD [address] [place] [address] 975315 Assigned PCP 12/29/24 Jason Alvares MD [address] [place] [address] 797005 Assigned Neuroscience Provider 12/29/24 Jignesh Mathias MD [address] [place] [address] 042915 Assigned Surgical Provider 12/29/24 Ayad Lopez, PhD LP [address] [place] [address] 625165 Assigned Behavioral Health Provider 02/28/25 Gavi Nieto, PA-C [address] [place] [address] 580325 Physician Health Services Manager Dermatology 03/19/25 documented as of this encounter
--- OUTSIDE RECORDS SUMMARY | 2025-06-08 22:52 | XMS_ITS | Encounter Summary ---
Author Organization [facility] Address [address] [place] [address] Care Team Providers Care Overlay Operator Name Role Phone Rio Jaquez MD Primary Care Provider Barry Kilpatrick MD Unavailable Michelle Henderson I RN Unavailable [phone] Rio Jaquez MD Unavailable +[phone] Jemima Jaramillo MD Unavailable Unavai Kelley Bautista RN Unavailable [phone] Sydnee Saleem MD Unavailable +[phone] Karlene Moya MD Unavailable Wilbert Quintero OD Unavailable +[phone] Rod Gauthier DPM Unavailable Jan Mahmood MD Unavailable +[phone] Brandt Quintana MD Unavailable Jan Mahmood MD Unavailable +[phone] Rio Jaquez MD Unavailable +[phone] Dom Eason MD Unavailable Jayla Plaza RN [...] Unavailable +[phone] Wagner Oliver MD Unavailable +[phone] Laura Epperson NP Unavailable +[phone] Thom Taveras MD Unavailable +[phone] Joesph Crowe MD Unavailable +[phone] Joesph Crowe MD Unavailable +[phone] Adonay Haq MD Unavailable +1- Denilson Srinivasan MD Unavailable + [phone] Jason Alvares MD Unavailable Ruth Riddle DPM, Podiatry /Foot and Ankle Surgery Unavailable Omar Carmona MD Primary Care Provider +1- Jignesh Mathias MD Unavailable Adonay Haq MD Unavailable +1- Omar Carmona MD Unavailable +[phone] Jason Alvares MD Unavailable Jignesh Mathias MD Unavailable Ayad Lopez PhD LP Unavailable +[phone] Gavi Nieto PA-C Unavailable [phone] Encounter Details Date Type Department Care Team (Late st Contact Info) Description 03/11/2023 MyC Medical Advice [facility] Hepatology Clinic [address] [address] Jayla Plaza RN Social History [...] Answer Date Recorded PHQ-2 Score 2 03/15/2023 [facility] - [...] in a penitentiary (including now)? No 08/27/2021 Comments No Sex and Gender Information Value Date Recorded Sex Assigned at Female 09/12/2020 12:05 PM CAR BARN LABORER Legal Sex Female 3:26 AM CAR BARN LABORER Gender Identity Female 09/12/2020 12:05 PM CAR BARN LABORER Sexual Orientation Straight 12/19/2021 10 :44 AM [...] st Contact Info) Description 06/13/2025 6:00 PM CAR BARN LABORER Ancillary Procedure [facility] Imaging Center CT Clinic [address] [phone] Omar Carmona MD [address] [place] [address] 559645 06/14/2025 4:00 PM CAR BARN LABORER Office Visit [facility] Primary Care [address] [address] Omar Carmona MD [address] [place] [address] 311015 06/15/2025 12:45 PM CAR BARN LABORER Therapy Visit [facility] Rehabilitation Services [address] [phone] Jason Alvares MD [address] [place] [address] 295 [place], [place] [phone] Chaya Castillo OTR [facility] 150 [place] [address] 06/19/2025 10:30 AM CAR BARN LABORER Virtual Visit [facility] Primary Care [address] [phone] Omar Carmona MD [address] [place] [address] 118135 Gerson Santos, [facility] 06/26/2025 11:00 AM CAR BARN LABORER Therapy Visit [facility] [address] [place] [phone] Jason Alvares MD [address] [place] [address] 813015 Chaya Castillo, OTR [address] [address] 07/09/2025 12:45 PM CAR BARN LABORER Therapy Visit [facility] [address] [place] [phone] Jason Alvares MD [address] [place] [address] Chaya Castillo OTMari [address] [address] 07/18/2025 3:00 PM CAR BARN LABORER Office Visit [facility] Heart Clinic [address] [phone] Adonay Chapman APRN [address] 442755 11/05/2025 12:30 PM CDT Lab [facility] Lab [address] [place] [phone] 11/05/2025 1:45 PM CDT Office Visit [facility] Dermatology Clinic [address]rd [place] [phone] Gavi Nieto PA-C Dermatology [address] [place] [address] 11/20/2025 10:30 AM CDT Virtual Visit [address] [address] Marquise Hanley MD 9 [place], [place] 335355 documented as of this encounter Goals Goal [...] documented as of this encounter Care Teams Overlay Operator Relationship Specialty Start Date End Date Rio Jaquez MD [address] [place] [address] [address] 4 [place] [address] PCP - General Family Practice 12/02/10 07/13/24 Omar Carmona MD [address] [place] [address] PCP - General Family Medicine 07/14/24 Barry Kilpatrick MD [address] [place] [address] [id number] [place] [address] Neurology 07/19/14 Michelle Henderson I, RN Nurse Coordinator Neurology 07/19/14 Rio Jaquez MD [address] [place] [address] 4 [place], [place] 466885 Family Practice 10/15/14 Jemima Jaramillo MD bridge/structure inspection team leader 11/20/14 Kelley Chin, TANIA [facility] [address] [place] [address] 493775 Nurse Coordinator Cardiology 11/04/15 Sydnee Saleem MD [address] [place] [address] 508 [place], [place] 891265 Cardiology 11/04/15 Karlene Moya MD [address] [place] [address] 678385 Ophthalmology 06/24/17 Wilbert Quintero, OD [address] [place] [address] 578795 Optometry 06/24/17 Rod Gauthier DPM [address] [place] [address] 081005 Guest Services Manager Primary Podiatric Medicine 06/21/18 Jan Mahmood MD [address] [place] [address] 2A [place] [address] Gastroenterology 11/05/20 Brandt Quintana MD [address] [place] [address] Resident 11/05/20 Jan Mahmood MD 516 [facility] 2A [place], [place] 103845 Assigned Gastroenterology Provider 12/01/20 Rio Jaquez MD [address] [place] [address] 112725 Assigned PCP 11/17/20 09/30/24 Dom Eason MD [address] [place] [address] 969664 Internal Medicine 12/02/20 Jayla Plaza, RN Specialty Auto Hiker Hepatology 01/09/21 02/13/24 Jaimie Vernon, RN Specialty Auto Hiker Cardiology 10/28/21 Ruth Riddle DPM, Podiatry/Foot and Ankle Surgery [address] [address] Assigned Musculoskeletal Provider 11/30/21 09/30/23 Marquise Hanley MD [address] [place] [address] 16843 Endocrinology, Diabetes, and Metabolism 03/05/22 Vlad Ramey MD [address] [place] [address] 871695 Cardiovascular Disease 05/07/22 Joesph Crowe MD [address] [place] [address] 925055 Surgery 05/07/22 Luis Arrington MD [address] [place] [address] 6[address]10 Assigned Neuroscience Provider 05/16/22 05/14/23 Michelle Padilla, RN Specialty Auto Hiker Cardiology 07/03/22 Vlad Ramey MD [address] [place] [address] 71868 Assigned Heart and Vascular Provider 07/25/22 05/28/23 Marquise Hanley MD [address] [place] [address] 8[address] Assigned Endocrinology Provider 08/15/22 Wagner Oliver MD [address] [place] [address] Critical Care 12/15/22 Laura Epperson NP [address] [place] [address] 1932 [place] [address] Assigned Nephrology Provider 02/20/23 08/30/24 Thom Taveras MD [address] [place] [address], [address] [address] Assigned Cancer Care Provider 02/06/23 08/20/23 Joesph Crowe MD [address] [place] [address] 9[address]06 Surgery 03/17/23 Joesph Crowe MD [address] [place] [address] 17407 Assigned Surgical Provider 04/03/23 09/30/24 Adonay Haq MD [address] [place] [address] 22552 Internal Medicine 06/14/23October, Denilson [place] MD [address] [facility] [address] [place] [address] Assigned Heart and Vascular Provider 05/29/23 11/28/24 Jason Alvares MD [address] [place] [address] 04104 Assigned Neuroscience Provider 05/15/23 11/28/24 Ruth Riddle DPM, Podiatry/Foot and Ankle Surgery [address] [place] [address] Assigned Musculoskeletal Provider 10/22/23 Jignesh Mathias MD [address] [place] [address] 22735 Gastroenterology 09/25/24 Adonay Haq MD [address] [place] [address] 98324 Assigned PCP 10/01/24 12/28/24 Omar Carmona MD [address] [place] [address] 80057 Assigned PCP 12/29/24 Jason Alvares MD [address] [address] Assigned Neuroscience Provider 12/29/24 Jignesh Mathias MD [address] [place] [address] 622295 Assigned Surgical Provider 12/29/24 Ayad Lopez, PhD LP [address] [place] [address] Assigned Behavioral Health Provider 02/28/25 Gavi Nieto PANavinC [address] [place] [address] Physician Certified Travel Counselor Dermatology 03/19/25 documented as of this encounter
--- OUTSIDE RECORDS SUMMARY | 2025-06-08 22:52 | XMS_ITS | Encounter Summary ---
Author Organization [place] Address [address] [place] [address] 15202 Care Team Providers Care Vmware Architect Name Role Phone Rio Jaquez MD Primary Care Provider + [phone] Barry Kilpatrick MD Unavailable Michelle Henderson RN Unavailable +[phone] Rio Jaquez MD Unavailable +[phone] Jemima Jaramillo MD Unavailable Unavai Kelley Bautista RN Unavailable +[phone] Sydnee Saleem MD Unavailable +[phone] Karlene Moya MD Unavailable +[phone] Wilbert Quintero OD Unavailable +[phone] Rod Gauthier DPM Unavailable +[phone] Nallely Hogue RN Unavailable Unavailable Jan Mahmood MD Unavailable +[phone] Brandt Quintana MD Unavailable +[phone] Jan Mahmood MD Unavailable +[phone] Rio Jaquez MD Unavailable +[phone] Dom Eason MD Unavailable +[phone] Jayla Plaza RN Unavailable +[phone] Sydnee [...] Unavailable +[phone] Dom Eason MD Unavailable +[phone] Wagner Oliver MD Unavailable +[phone] Laura Epperson NP Unavailable +[phone] Thom Taveras MD Unavailable +[phone] Joesph Crowe MD Unavailable + [phone] Joesph Crowe MD Unavailable + [phone] Adonay Haq MD Unavailable +[phone] Denilson Srinivasan MD Unavailable + [phone] Jason Alvares MD Unavailable Ruth Riddle DPM, Podiatry /Foot and Ankle Surgery Unavailable Omar Carmona MD Primary Care Provider +1- Jignesh Mathias MD Unavailable Adonay Haq MD Unavailable +1- Omar Carmona MD Unavailable +[phone] Jason Alvares MD Unavailable Jignesh Mathias MD Unavailable Ayad Lopez PhD LP Unavailable +[phone] Gavi Nieto PA-C Unavailable +[phone] Encounter Details Date Type Department Care Team (Late st Contact Info) Description 03/17/2022 MyC Medical Advice [facility] [place] [address] [place] [address] Ruth Riddle, DPVik, Podiatry/Foot and Ankle Surgery [address] [place], [place] [address] Social History Tobacco Use Types Packs/Day Years [...] Answer Date Recorded PHQ-2 Score 1 02/16/2022 [facility] of Occupat ional [facility] - Occupational Stress Questionnaire Answer Date [...] Assigned at Female 09/12/2020 12:05 PM ELECTRONICS DETAIL DRAFTSPERSON Legal Sex Female 3:26 AM ELECTRONICS DETAIL DRAFTSPERSON Gender Identity Female 09/12/2020 12:05 PM ELECTRONICS DETAIL DRAFTSPERSON Sexual Orientation Straight 12/19/2021 10 :44 AM [...] 10:50 AM CDT Responded to patient via [facility]. Merly Weems MBA, ATC * Telephone Encounter - Ruth Riddle DPM, Podiatry/Foot and Ankle Surgery - [...] of routine nail care options. Patient sent Razzhart message with concerns about a callus. Please advise if ok to see in clinic or if there are other recommendations. Merly Weems MBA, ATC documented in this encounter Plan of Treatment Upcoming Encounters Date Type Department Care Team (Late st Contact Info) Description 06/13/2025 6:00 PM ELECTRONICS DETAIL DRAFTSPERSON Ancillary Procedure [facility] [address] [phone] Omar Carmona MD [address] [place] [address] 650515 06/14/2025 4:00 PM ELECTRONICS DETAIL DRAFTSPERSON Office Visit [facility] [address] [phone] Omar Carmona MD [address] [place] [address] [phone] 06/15/2025 12:45 PM ELECTRONICS DETAIL DRAFTSPERSON Therapy Visit [facility] Rehabilitation Services [address] [phone] Jasno Alvares MD [address] [place] [address] 293195 Chaya Castillo, [facility] [address] [place], [place] 734837 06/19/2025 10:30 AM ELECTRONICS DETAIL DRAFTSPERSON Virtual Visit [facility] Care [address] [phone] Omar Carmona MD [address] [place] [address] 17088 Gerson Santos, [facility] 06/26/2025 11:00 AM ELECTRONICS DETAIL DRAFTSPERSON Therapy Visit [facility] 150 [place] [phone] Jason Alvares MD [address] [place] [address] 340055 Chaya Castillo, OTR [facility] [address] [place] [address] 07/09/2025 12:45 PM ELECTRONICS DETAIL DRAFTSPERSON Therapy Visit [address] [phone] Jason Alvares MD [address] [place] [address] 145755 Chaya Castillo, OTR [address] [phone] 07/18/2025 3:00 PM ELECTRONICS DETAIL DRAFTSPERSON Office Visit [facility] Heart [address] [phone] Adonay Chapman APRN [facility] 500 [place], [place] 290675 11/05/2025 12:30 PM CDT Lab [facility] Lab [address] [place] [phone] 11/05/2025 1:45 PM CDT Office Visit [facility] Dermatology Clinic [address] [place] [phone] Gavi Nieto PA-C Dermatology [address] [place] [address] [phone] 11/20/2025 10:30 AM CDT Virtual Visit [address] [address] Marquise Hanley MD [address] [place] [address] documented as of this encounter Goals Goal [...] documented as of this encounter Care Teams Vmware Architect Relationship Specialty Start Date End Date Rio Jaquez MD [address] [place] [address] 4 [place] [address] PCP - General Family Practice 12/02/10 07/13/24 Omar Carmona MD [address] [place] [address] 65336 PCP - General Family Medicine 07/14/24 Barry Kilpatrick MD [address] [place] [address] [id number] [place] [address] Neurology 07/19/14 Michelle Henderson I, RN Nurse Coordinator Neurology 07/19/14 Rio Jaquez MD 9 [facility] [place] 4 [place], [place] 297845 Family Practice 10/15/14 Jemima Jaramillo MD collet maker 11/20/14 Kelley Chin, TANIA [address] 104035 Nurse Coordinator Cardiology 11/04/15 Sydnee Saleem MD [address] [place] [address] 508 [place], [place] 184275 Cardiology 11/04/15 Karlene Moya MD [address] [place] [address] [phone] Ophthalmology 06/24/17 Wilbert Quintero, OD [address] [place] [address] 379335 Optometry 06/24/17 Rod Gauthier DPM [address] [place] [address] 898295 Automatic Wheel Line Operator Primary Podiatric Medicine 06/21/18 Nallely Hogue, RN Registered Nurse 02/20/19 11/23/22 Jan Mahmood MD [address] [place] [address] 55455 Gastroenterology 11/05/20 Brandt Quintana MD [address] [place] [address] 40938 Resident 11/05/20 Jan Mahmood MD 516 [facility] [address] [place] [address] Assigned Gastroenterology Provider 12/01/20 Rio Jaquez MD [address] [facility] [address] 4 [place], [place] 787675 Assigned PCP 11/17/20 09/30/24 Dom Eason MD 717 [facility] 353 [place] [address] Internal Medicine 12/02/20 Jayla Plaza, RN Specialty Retail Field Merchandiser Hepatology 01/09/21 02/13/24 Sydnee Saleem MD 6550 [facility] [address] [place] [address] 71016 Assigned Heart and Vascular Provider 02/02/21 07/24/22 Jaimie Vernon, RN Specialty Retail Field Merchandiser Cardiology 10/28/21 Ruth Riddle DPM, Podiatry/Foot and Ankle Surgery 37012 [facility] 300 [place], [place] 004147 Assigned Musculoskeletal Provider 11/30/21 09/30/23 Jason Alvares MD 420 [facility] 295 [place], [place] 646235 Assigned Neuroscience Provider 01/03/22 05/15/22 Marquise Hanley MD [address] [place], [place] [phone] Endocrinology, Diabetes, and Metabolism 03/05/22 Vlad Ramey MD [address] [place] [address] 21000 Cardiovascular Disease 05/07/22 Joesph Crowe MD [address] [place] [address] 12830 Surgery 05/07/22 Luis Arrington MD [address] [place] [address] 049465 Assigned Neuroscience Provider 05/16/22 05/14/23 Michelle Padilla RN Specialty Retail Field Merchandiser Cardiology 07/03/22 Vlad Ramey MD [address] [place] [address] 45079 Assigned Heart and Vascular Provider 07/25/22 05/28/23 Marquise Hanley MD [address] [place] [address] 887525 Assigned Endocrinology Provider 08/15/22 Dom Eason MD [address] [place] [address] 75642 Assigned Nephrology Provider 11/28/22 02/19/23 Wagner Oliver MD [address] [place] 649[address] Critical Care 12/15/22 Laura Epperson, PATIENT LIAISON [address] [place] [address] 1932 [place] [address] Assigned Nephrology Provider 02/20/23 08/30/24 Thom Taveras MD [address] [place], [place] 999[address]05 [place] [address] Assigned Cancer Care Provider 02/06/23 08/20/23 Joesph Crowe MD [address] [place] [address] 68159 MD Surgery 03/17/23 Joesph Crowe MD [address] [place] [address] 46841 Assigned Surgical Provider 04/03/23 09/30/24 Adonay Haq MD [address] [place] [address] 87619 Internal Medicine 06/14/23OctoberDenilson MD 6405 [facility] [address] [place] [address] Assigned Heart and Vascular Provider 05/29/23 11/28/24 Jason Alvares MD [address] [place] [address] 295 [place] [address] Assigned Neuroscience Provider 05/15/23 11/28/24 Ruth Riddle DPM, Podiatry/Foot and Ankle Surgery [address] [place] [address] Assigned Musculoskeletal Provider 10/22/23 Jignesh Mathias MD [address] [place] [address] 75574 Gastroenterology 09/25/24 Adonay Haq MD [address] [place] [address] 362585 Assigned PCP 10/01/24 12/28/24 Omar Carmona MD [address] [place] [address] 229535 Assigned PCP 12/29/24 Jason Alvares MD [address] [place] [address] 192705 Assigned Neuroscience Provider 12/29/24 Jignesh Mathias MD [address] [place] [address] 974585 Assigned Surgical Provider 12/29/24 Ayad Lopez, PhD LP [address] [place] [address] 371995 Assigned Behavioral Health Provider 02/28/25 Gavi Nieto PA-C [address] [place] [address] [phone] Physician Residence Hall Director Dermatology 03/19/25 documented as of this encounter
--- OUTSIDE RECORDS SUMMARY | 2025-06-08 22:52 | XMS_ITS | Encounter Summary ---
Author Organization [place] Address [address] [place] [address] 44843 Care Team Providers Care Cobol Application Developer Name Role Phone Rio Jaquez MD Primary Care Provider + [phone] Barry Kilpatrick MD Unavailable Michelle Henderson RN Unavailable [phone] Rio Jaquez MD Unavailable +[phone] Jemima Jaramillo MD Unavailable Unavai Kelley Bautista RN Unavailable +[phone] Sydnee Saleem MD Unavailable +[phone] Karlene Moya MD Unavailable +[phone] Wilbert Quintero OD Unavailable +[phone] Rod GauthierM Unavailable +[phone] Nallely Hogue RN Unavailable Unavailable Larisa Vargas RN Unavailable Unavailable Jan Mahmood MD Unavailable +[phone] Brandt Quintana MD Unavailable +[phone] Jan Mahmood MD Unavailable +[phone] Rio Jaquez MD Unavailable +[phone] Dom Eason MD Unavailable +[phone] Jayla Plaza RN Unavailable +[phone] Sydnee [...] Unavailable +[phone] Dom Eason MD Unavailable +[phone] Wagner Oliver MD Unavailable +[phone] Laura Epperson NP Unavailable +[phone] Thom Taveras MD Unavailable +[phone] Joesph Crowe MD Unavailable +[phone] Joesph Crowe MD Unavailable + [phone] Adonay Haq MD Unavailable +[phone] Denilson Srinivasan MD Unavailable + [phone] Jason Alvares MD Unavailable Ruth Riddle DPM, Podiatry /Foot and Ankle Surgery Unavailable Omar Carmona MD Primary Care Provider +[phone] Jignesh Mathias MD Unavailable Adonay Haq MD Unavailable +[phone] Omar Carmona MD Unavailable +[phone] Jason Alvares MD Unavailable Jignesh Mathias MD Unavailable Ayad Lopez PhD LP Unavailable +[phone] Gavi Nieto PA-C Unavailable +[phone] Encounter Details Date Type Department Care Team (Late st Contact Info) Description 02/25/2022 MyC Medical Advice [facility] [address] [phone] Jayla Plaza RN Social History [...] Answer Date Recorded PHQ-2 Score 1 02/16/2022 [facility] of Occupat ional [...] Assigned at Female 09/12/2020 12:05 PM AIRCRAFT POWERPLANT REPAIRER Legal Sex Female 3:26 AM AIRCRAFT POWERPLANT REPAIRER Gender Identity Female 09/12/2020 12:05 PM AIRCRAFT POWERPLANT REPAIRER Sexual Orientation Straight 12/19/2021 10 :44 [...] Contact Info) Description 06/13/2025 6:00 PM AIRCRAFT POWERPLANT REPAIRER Ancillary Procedure [facility] [address] [place] [address] Omar Carmona MD [address] [place] [address] 922105 06/14/2025 4:00 PM AIRCRAFT POWERPLANT REPAIRER Office Visit [facility] [address] [place] [address] Omar Carmona MD [address] [place] [address] 291825 06/15/2025 12:45 PM AIRCRAFT POWERPLANT REPAIRER Therapy Visit [facility] [address] [address] Jason Alvares MD [address] [place] [address] 34564 Chaya Castillo OTR [facility] 150 [place] [address] 06/19/2025 10:30 AM AIRCRAFT POWERPLANT REPAIRER Virtual Visit [facility] [address] [place] [address] 4th [place] [phone] Omar Carmona MD [address] [place] [address] 696345 Gerson Santos, [facility] 06/26/2025 11:00 AM AIRCRAFT POWERPLANT REPAIRER Therapy Visit [facility] 150 [place] [phone] Jason Alvares MD [address] [place] [address] 280355 Chaya Castillo OTR [facility] 150 [place] [address] 07/09/2025 12:45 PM AIRCRAFT POWERPLANT REPAIRER [facility] 150 [place] [phone] Jason Alvares MD [address] [place] [address] 123005 Chaya Castillo OTR [facility] 150 [place] [address] 07/18/2025 3:00 PM AIRCRAFT POWERPLANT REPAIRER Office Visit [facility] [address] [phone] Adonay Chapman APRN [address] 020945 11/05/2025 12:30 PM CDT Lab [facility] [place] [address] [place] [address] 1st [place] [phone] 11/05/2025 1:45 PM CDT Office Visit [facility] Dermatology Clinic [address] [place] [phone] Gavi Nieto PA-C Dermatology [address] [place] [address] 25261 11/20/2025 10:30 AM CDT Virtual Visit [address] [phone] Marquise Hanley MD [address] [place] [address] 077415 documented as of this encounter Goals Goal [...] documented as of this encounter Care Teams Cobol Application Developer Relationship Specialty Start Date End Date Rio Jaquez MD [address] [place] [address] 23351 PCP - General Family Practice 12/02/10 07/13/24 Omar Carmona MD [address] [place] [address] 49655 PCP - General Family Medicine 07/14/24 Barry Kilpatrick MD [address] [place] [address] [id number] [place] [address] Neurology 07/19/14 Michelle Henderson RN Nurse Coordinator Neurology 07/19/14 Rio Jaquez MD [address] [place] [address] [address] 4 [place], [place] 891145 Family Practice 10/15/14 Jemima Jaramillo MD ramp attendant 11/20/14 Kelley Chin RN [address] 137735 Nurse Coordinator Cardiology 11/04/15 Sydnee Saleem MD 420 [facility] 508 [place], [place] 961445 Cardiology 11/04/15 Karlene Moya MD [address] [place] [address] 314265 Ophthalmology 06/24/17 Wilbert Quintero, OD [address] [place] [address] 660385 Optometry 06/24/17 Rod Gauthier, BILLY [address] [place] [address] [phone] Orthopedic Rn Primary Podiatric Medicine 06/21/18 Haven, Nallely, RN Registered Nurse 02/20/19 11/23/22 Larisa Vargas, TANIA Specialty Optical Instrument Inspector Cardiology 04/18/19 03/06/22 Jan Mahmood MD 516 [facility] 2A [place] [address] Gastroenterology 11/05/20 [place] [address] [place] [address] 22118 Resident 11/05/20 Jan Mahmood MD 6 [facility] 2A [place] [address] Assigned Gastroenterology Provider 12/01/20 Rio Jaquez MD 909 [facility] 4 [place] [address] Assigned PCP 11/17/20 09/30/24 Dom Eason MD 7 [facility] 353 [place] [address] Internal Medicine 12/02/20 Jayla Plaza, RN Specialty Optical Instrument Inspector Hepatology 01/09/21 02/13/24 Sydnee Saleem MD 6550 [facility] [address] [place] [address] 77030 Assigned Heart and Vascular Provider 02/02/21 07/24/22 Cristian Barragan MD 2945 [place] [address] Assigned Infectious Disease Provider 02/21/21 03/06/22 Jaimie Vernon, RN Specialty Optical Instrument Inspector Cardiology 10/28/21 Ruth Riddle, DPM, Podiatry/Foot and Ankle Surgery [address] [place] [address] 29656 Assigned Musculoskeletal Provider 11/30/21 09/30/23 Jason Alvares MD [address] [place] [address] 30975 Assigned Neuroscience Provider 01/03/22 05/15/22 Marquise Hanley MD [address] [place] [address] 56504 Endocrinology, Diabetes, and Metabolism 03/05/22 Vlad Ramey MD [address] [place] [address] 40347 Cardiovascular Disease 05/07/22 Joesph Crowe MD [address] [place] [address] 29044 Surgery 05/07/22 Luis Arrington MD [address] [place] [address] 37160 Assigned Neuroscience Provider 05/16/22 05/14/23 Michelle Padilla RN Specialty Optical Instrument Inspector Cardiology 07/03/22 Vlad Ramey MD [address] [place] [address] 09984 Assigned Heart and Vascular Provider 07/25/22 05/28/23 Marquise Hanley MD 909 [place] [address] Assigned Endocrinology Provider 08/15/22 Dom Eason MD 717 [facility] 353 [place] [address] Assigned Nephrology Provider 11/28/22 02/19/23 Wagner Oliver MD [address] [place] [address] Critical Care 12/15/22 Laura Epperson, FRUIT RANCHER 717 [facility] [address] [place] [address] Assigned Nephrology Provider 02/20/23 08/30/24 Thom Taveras MD [address], [address] [place] [address] Assigned Cancer Care Provider 02/06/23 08/20/23 Joesph Crowe MD [address] [place] [address] 02539 Surgery 03/17/23 Joesph Crowe MD [address] [place] [address] 40922 Assigned Surgical Provider 04/03/23 09/30/24 Adonay Haq MD [address] [place] [address] 80523 Internal Medicine 06/14/23October, Denilson Jackson MD [address] [facility] [address] [place] [address] Assigned Heart and Vascular Provider 05/29/23 11/28/24 Jason Alvares MD [address] [place] [address] 295 [place], [place] 169445 Assigned Neuroscience Provider 05/15/23 11/28/24 Ruth Riddle DPM, Podiatry/Foot and Ankle Surgery [address] [place], [place] 448077 Assigned Musculoskeletal Provider 10/22/23 Jignesh Mathias MD [address] [place] [address] 975865 Gastroenterology 09/25/24 Adonay Haq MD [address] [place] [address] 875325 Assigned PCP 10/01/24 12/28/24 Omar Carmona MD [address] [place] [address] 948265 Assigned PCP 12/29/24 Jason Alvares MD [address] [place] [address] 295 [place], [place] 141945 Assigned Neuroscience Provider 12/29/24 Jignesh Mathias MD [address] [place] [address] 17135 Assigned Surgical Provider 12/29/24 Ayad Lopez, PhD LP [address] [place] [address] 89755 Assigned Behavioral Health Provider 02/28/25 Gavi Nieto PA-C 500 [place], [place] 466785 Physician Supervisor [employer] Dermatology 03/19/25 documented as of this encounter
--- OUTSIDE RECORDS SUMMARY | 2025-06-08 22:52 | XMS_ITS | Encounter Summary ---
Author Organization [place] Address [address] [place] [address] Care Team Providers Care Labor Conciliator Name Role Phone Rio Jaquez MD Primary Care Provider + [phone] Barry Kilpatrick MD Unavailable Michelle Henderson RN Unavailable +[phone] Rio Jaquez MD Unavailable +[phone] Jemima Jaramillo MD Unavailable Unavai Kelley Bautista RN Unavailable +[phone] Sydnee Saleem MD Unavailable +[phone] Karlene Moya MD Unavailable +[phone] Wilbert Quintero OD Unavailable +[phone] Rod GauthierM Unavailable +[phone] Nallely Hogue RN Unavailable Unavailable Larisa Vargas RN Unavailable Unavailable Jan Mahmood MD Unavailable +[phone] Brandt Quintana MD Unavailable +[phone] Jan Mahmood MD Unavailable +[phone] Rio Jaquez MD Unavailable +[phone] Dom Eason MD Unavailable +[phone] Jayla Plaza RN Unavailable +[phone] Sydnee [...] Unavailable +[phone] Dom Eason MD Unavailable +[phone] Wagner Oliver MD Unavailable +[phone] Laura Epperson NP Unavailable +[phone] Thom Taveras MD Unavailable +[phone] Joesph rCowe MD Unavailable +[phone] Joesph Crowe MD Unavailable + [phone] Adonay Haq MD Unavailable +[phone] Denilson Srinivasan MD Unavailable + [phone] Jason Alvares MD Unavailable Ruth Riddle DPM, Podiatry /Foot and Ankle Surgery Unavailable Omar Carmona MD Primary Care Provider +[phone] Jignesh Mathias MD Unavailable Adonay Haq MD Unavailable +[phone] Omar Carmona MD Unavailable +[phone] Jason Alvares MD Unavailable Jignesh Mathias MD Unavailable Ayad Lopez PhD LP Unavailable +[phone] Gavi Nieto PA-C Unavailable +[phone] Encounter Details Date Type Department Care Team (Late st Contact Info) Description 02/11/2022 [facility] [address] [place] [address] Alaina Moreland CMA Social History Tobacco [...] Answer Date Recorded PHQ-2 Score 2 08/27/2021 [facility] - Occupational Stress Questionnaire Answer Date [...] Sex Assigned at Female 09/12/2020 12:05 PM TIMBER INCISOR OPERATOR Legal Sex Female 3:26 AM TIMBER INCISOR OPERATOR Gender Identity Female 09/12/2020 12:05 PM TIMBER INCISOR OPERATOR Sexual Orientation Straight 12/19/2021 10 :44 [...] st Contact Info) Description 06/13/2025 6:00 PM TIMBER INCISOR OPERATOR Ancillary Procedure [facility] Clinic [address]st [place] [phone] Omar Carmona MD [address] [place] [address] 815645 06/14/2025 4:00 PM TIMBER INCISOR OPERATOR Office Visit [facility] [address]th [place] [address] Omar Carmona MD [address] [place] [address] [phone] 06/15/2025 12:45 PM TIMBER INCISOR OPERATOR Therapy Visit [facility] Rehabilitation Services [address] [address] Jason Alvares MD [address] [place] [address] [address] [place] [address] Chaya Castillo OTR [facility] [address] [place] [address] 06/19/2025 10:30 AM TIMBER INCISOR OPERATOR Virtual Visit [facility] [address] [place] [address] 4th Floor [phone] Omar Carmona MD [address] [place] [address] 850655 Gerson Santos, [facility] 06/26/2025 11:00 AM TIMBER INCISOR OPERATOR Therapy Visit [address] [phone] Jason Alvares MD [address] [place] [address] [phone] Chaya Castillo OTR [facility] 150 [place] [address] 07/09/2025 12:45 PM TIMBER INCISOR OPERATOR [facility] [address] [place] [phone] Jason Alvares MD [address] [place] [address] [phone] Chaya Castillo OTR [facility] 150 [place] [address] 07/18/2025 3:00 PM TIMBER INCISOR OPERATOR Office Visit [facility] [address] [phone] Adonay Chapman APRN [address] 034835 11/05/2025 12:30 PM CDT Lab [facility] [address] 1st Floor [phone] 11/05/2025 1:45 PM CDT Office Visit [facility] Dermatology [facility] [address] [place] [phone] Gavi Nieto PA-C Dermatology [address] [place] [address] 11/20/2025 10:30 AM CDT Virtual Visit [address] [address] Marquise Hanley MD [address] [place] [address] [phone] documented as of this encounter Goals Goal [...] Total Score: 5 08/27/19 22 9:25 AM TIMBER INCISOR OPERATOR documented as of this encounter Care Teams Labor Conciliator Relationship Specialty Start Date End Date Rio Jaquez MD [address] [place] [address] [phone] PCP - General Family Practice 12/02/10 07/13/24 Omar Carmona MD [address] [place] [address] 905375 PCP - General Family Medicine 07/14/24 Barry Kilpatrick MD 9 [facility] [id number] [place], [place] [phone] Neurology 07/19/14 Michelle Henderson I, RN Nurse Coordinator Neurology 07/19/14 Rio Jaquez MD [address] [place] [address] [address] 4 [place], [place] [phone] Family Practice 10/15/14 Jemima Jaramillo MD dowel pin worker 11/20/14 Kelley Chin RN [address] 197125 Nurse Coordinator Cardiology 11/04/15 Sydnee Saleem MD 420 [facility] 508 [place], [place] 325345 Cardiology 11/04/15 Karlene Moya MD [address] [place] [address] [phone] Ophthalmology 06/24/17 Wilbert Quintero, OD [address] [place] [address] 368615 Optometry 06/24/17 Rod Gauthier DPM [address] [place] [address] 281975 Commercial Lending Assistant Primary Podiatric Medicine 06/21/18 Nallely Hogue, RN Registered Nurse 02/20/19 11/23/22 Larisa Vargas, TANIA Specialty Tail Ripper Cardiology 04/18/19 03/06/22 Jan Mahmood MD 516 [facility] 2A [place] [address] Gastroenterology 11/05/20 [place] [address] [place] [address] 39104 Resident 11/05/20 Jan Mahmood MD 516 [facility] 2[address] [place] [address] Assigned Gastroenterology Provider 12/01/20 Rio Jaquez MD 909 [facility] 4 [place] [address] Assigned PCP 11/17/20 09/30/24 Dom Eason MD 717 [facility] 353 [place] [address] Internal Medicine 12/02/20 Jayla Plaza, RN Specialty Tail Ripper Hepatology 01/09/21 02/13/24 Sydnee Saleem MD 6550 [facility] [address] [place] [address] [phone] Assigned Heart and Vascular Provider 02/02/21 07/24/22 Cristian Barragan MD 2945 [place] [address] Assigned Infectious Disease Provider 02/21/21 03/06/22 Jaimie Vernon, TANIA Specialty Tail Ripper Cardiology 10/28/21 Ruth Riddle DPM, Podiatry/Foot and Ankle Surgery [address] [place] [address] [place] [address]991 Assigned Musculoskeletal Provider 11/30/21 09/30/23 Jason Alvares MD [address] [place] [address] 04190 Assigned Neuroscience Provider 01/03/22 05/15/22 Marquise Hanley MD [address] [place] [address] 41969 Endocrinology, Diabetes, and Metabolism 03/05/22 Vlad Ramey MD [address] [place] [address] 60734 Cardiovascular Disease 05/07/22 Joesph Crowe MD [address] [place] [address] 03540 Surgery 05/07/22 Luis Arrington MD [address] [place] [address] 75322 Assigned Neuroscience Provider 05/16/22 05/14/23 Michelle Padilla RN Specialty Tail Ripper Cardiology 07/03/22 Vlad Ramey MD [address] [place] [address] 62785 Assigned Heart and Vascular Provider 07/25/22 05/28/23 Marquise Hanley MD [address] [place] [address] 99528 Assigned Endocrinology Provider 08/15/22 Dom Eason MD 717 [facility] [address] [place] [address] Assigned Nephrology Provider 11/28/22 02/19/23 Wagner Oliver MD [address] [place] [address] Critical Care 12/15/22 Laura Eppesron NP 7 [facility] [address] [place] [address] Assigned Nephrology Provider 02/20/23 08/30/24 Thom Taveras MD [address] [place] [address] Assigned Cancer Care Provider 02/06/23 08/20/23 Joesph Crowe MD [address] [place] [address] 41374 Surgery 03/17/23 Joesph Crowe MD [address] [place] [address] 50760 Assigned Surgical Provider 04/03/23 09/30/24 Adonay Haq MD [address] [place] [address] 55369 Internal Medicine 06/14/23OctoberDenilson MD [address] [place] [address] Assigned Heart and Vascular Provider 05/29/23 11/28/24 Jason Alvares MD [address] [address] Assigned Neuroscience Provider 05/15/23 11/28/24 Ruth Riddle, DPM, Podiatry/Foot and Ankle Surgery [address] [place], [place] 033517 Assigned Musculoskeletal Provider 10/22/23 Jignesh Mathias MD [address] [place] [address] [phone] Gastroenterology 09/25/24 Adonay Haq MD [address] [place] [address] [phone] Assigned PCP 10/01/24 12/28/24 Omar Carmona MD [address] [place] [address] 114875 Assigned PCP 12/29/24 Jason Alvares MD [address] [place] [address] 31399 Assigned Neuroscience Provider 12/29/24 Jignesh Mathias MD [address] [place] [address] 655605 Assigned Surgical Provider 12/29/24 Ayad Lopez, PhD LP [address] [place] [address] 57554 Assigned Behavioral Health Provider 02/28/25 Gavi Nieto PA-C [address] [place] [address] Physician Chief Crew Scheduler Dermatology 03/19/25 documented as of this encounter
--- OUTSIDE RECORDS SUMMARY | 2025-06-08 22:52 | XMS_ITS | Encounter Summary ---
Author Organization [place] Address [address] [place] [address] Care Team Providers Care Naval Marine Engineer Name Role Phone Rio Jaquez MD Primary Care Provider Barry Kilpatrick MD Unavailable Michelle Henderson I RN Unavailable [phone] Rio Jaquez MD Unavailable +[phone] Jmeima Jaramillo MD Unavailable Unavai Kelley Bautista RN Unavailable [phone] Sydnee Saleem MD Unavailable +[phone] Karlene Moya MD Unavailable Wilbert Quintero OD Unavailable +[phone] Rod Gauthier DPM Unavailable Jan Mahmood MD Unavailable [phone] Brandt Quintana MD Unavailable Jan Mahmood MD Unavailable +[phone] Rio Jaquez MD Unavailable [phone] Dom Eason MD Unavailable Jayla Plaza [...] Unavailable +[phone] Wagner Oliver MD Unavailable +[phone] Laura Epperson NP Unavailable +[phone] Thom Taveras MD Unavailable +[phone] Joesph Crowe MD Unavailable [phone] Joesph Crowe MD Unavailable [phone] Adoany Haq MD Unavailable +1- Denilson Srinivasan MD Unavailable + [phone] Jason Alvares MD Unavailable Ruth Riddle DPM, Podiatry /Foot and Ankle Surgery Unavailable Omar Carmona MD Primary Care Provider +1- Jignesh Mathias MD Unavailable Adonay Haq MD Unavailable +1- Omar Carmona MD Unavailable +[phone] Jason Alvares MD Unavailable Jignesh Mathias MD Unavailable Ayad Lopez PhD LP Unavailable [phone] Gavi Nieto PA-C Unavailable Encounter Details Date Type Department Care Team (Late st Contact Info) Description 03/05/2023 [facility] [address] [address] Lizbeth Lopes Social History Tobacco [...] than three times a week 08/27/2021 Attends [employer] Not on file 08/27 Do you [...] Answer Date Recorded PHQ-2 Score 0 03/08/2023 [facility] - [...] Assigned at Female 09/12/2020 12:05 PM MANAGER COSMETIC Legal Sex Female 3:26 AM MANAGER COSMETIC Gender Identity Female 09/12/2020 12:05 PM MANAGER COSMETIC Sexual Orientation Straight 12/19/2021 10 :44 AM [...] Contact Info) Description 06/13/2025 6:00 PM MANAGER COSMETIC Ancillary Procedure [facility] Imaging Center CT Clinic [address] [phone] Omar Carmona MD [address] [place] [address] [phone] 06/14/2025 4:00 PM MANAGER COSMETIC Office Visit [facility] Primary Care [address] [address] Omar Carmona MD [address] [place] [address] [phone] 06/15/2025 12:45 PM MANAGER COSMETIC Therapy Visit [facility] Rehabilitation Services [address] [phone] Jason Alvares MD 420 [facility] 295 [place], [place] 726655 Chaya Castillo OTR [facility] 150 [place] [address] 06/19/2025 10:30 AM MANAGER COSMETIC Virtual Visit [facility] Primary Care [address] [address] Omar Carmona MD [address] [place] [address] [phone] TomGerson, [facility] 06/26/2025 11:00 AM MANAGER COSMETIC Therapy Visit [facility] 150 [place] [phone] Jason Alvares MD [address] [place] [address] Chaya Castillo OTMari [address] [address] 07/09/2025 12:45 PM MANAGER COSMETIC Therapy Visit [address] [phone] Jason Alvares MD [address] [address] Chaya Castillo OTR [address] [address] 07/18/2025 3:00 PM MANAGER COSMETIC Office Visit [facility] Heart Clinic [address] [phone] Adonay Chapman APRN [address] 011715 11/05/2025 12:30 PM CDT Lab [facility] Lab [address] [address] 11/05/2025 1:45 PM CDT Office Visit [facility] Dermatology Clinic [address]rd [place] [phone] Gavi Nieto PA-C Dermatology [address] [place] [address]245 11/20/2025 10:30 AM CDT Virtual Visit [address] [phone] Marquise Hanley MD [address] [place] [address] 50069 documented as of this encounter Goals Goal [...] documented as of this encounter Care Teams Naval Marine Engineer Relationship Specialty Start Date End Date Rio Jaquez MD [address] [place] [address] [address] 4 [place] [address] PCP - General Family Practice 12/02/10 07/13/24 Omar Carmona MD [address] [place] [address] 24722 PCP - General Family Medicine 07/14/24 Barry Kilpatrick MD [address] [place] [address] [id number] [place] [address] Neurology 07/19/14 Michelle Henderson I, RN Nurse Coordinator Neurology 07/19/14 Rio Jaquez MD [address] [place] [address] 462515 Family Practice 10/15/14 Jemima Jaramillo MD access spec 11/20/14 Kelley Chin RN [address] 236905 Nurse Coordinator Cardiology 11/04/15 Sydnee Saleem MD [address] [place], [place] [address] [place] [address] Cardiology 11/04/15 Karlene Moya MD [address] [place] [address] Ophthalmology 06/24/17 Wilbert Quintero, OD [address] [place] [address]455 Optometry 06/24/17 Rod Gauthier DPM [address] [place] [address] 55455 Ground Layer Primary Podiatric Medicine 06/21/18 Jan Mahmood MD [address] [place] [address] Gastroenterology 11/05/20 Brandt Quintana MD [address] [place] [address] 76[address] Resident 11/05/20 Jan Mahmood MD 516 [facility] [place] [address] Assigned Gastroenterology Provider 12/01/20 Rio Jaquez MD [address] [place] [address] [address] 4 [place], [place] 012705 Assigned PCP 11/17/20 09/30/24 Dom Eason MD 717 [facility] 353 [place], [place] 972124 Internal Medicine 12/02/20 Jayla Plaza, RN Specialty Set Making Machine Operator Hepatology 01/09/21 02/13/24 Jaimie Vernon, RN Specialty Set Making Machine Operator Cardiology 10/28/21 Ruth Riddle, DPM, Podiatry/Foot and Ankle Surgery 40135 [facility] 300 [place] [address] Assigned Musculoskeletal Provider 11/30/21 09/30/23 Marquise Hanley MD [address] [place] [address] 89493 Endocrinology, Diabetes, and Metabolism 03/05/22 Vlad Ramey MD [address] [place] [address] 73511 Cardiovascular Disease 05/07/22 Joesph Crowe MD [address] [place] [address] 94099 Surgery 05/07/22 Luis Arrington MD [address] [place] [address] 62099 Assigned Neuroscience Provider 05/16/22 05/14/23 Michelle Pdailla, RN Specialty Set Making Machine Operator Cardiology 07/03/22 Vlad Ramey MD [address] [place] [address] [phone] Assigned Heart and Vascular Provider 07/25/22 05/28/23 Marquise Hanley MD [address] [place] [address] 79442 Assigned Endocrinology Provider 08/15/22 Wagner Oliver MD [address] [place] [address] Critical Care 12/15/22 Laura Epperson NP [address] [place] [address] 1932 [place] [address] Assigned Nephrology Provider 02/20/23 08/30/24 Thom Taveras MD [address] [place] [address], [address] [address] Assigned Cancer Care Provider 02/06/23 08/20/23 Joesph Crowe MD [address] [place] [address] 77654 Surgery 03/17/23 Joesph Crowe MD [address] [place] [address] 53674 Assigned Surgical Provider 04/03/23 09/30/24 Adonay Haq MD [address] [place] [address] 85743 Internal Medicine 06/14/23October, Denilson Jackson MD 6405 [facility] [address] [place], [place] 660165 Assigned Heart and Vascular Provider 05/29/23 11/28/24 Jason Alvares MD [address] [place] [address] [phone] Assigned Neuroscience Provider 05/15/23 11/28/24 Ruth Riddle DPM, Podiatry/Foot and Ankle Surgery 51095 [facility] 300 [place] [address] Assigned Musculoskeletal Provider 10/22/23 Jignesh Mathias MD [address] [place] [address] 02934 Gastroenterology 09/25/24 Adonay Haq MD [address] [place] [address] 17584 Assigned PCP 10/01/24 12/28/24 Omar Carmona MD [address] [place] [address] 384315 Assigned PCP 12/29/24 Jason Alvares MD [address] [address] [phone] Assigned Neuroscience Provider 12/29/24 Jignesh Mathias MD 909 [place], [place] 066295 Assigned Surgical Provider 12/29/24 Ayad Lopez, PhD LP [address] [place] [address] Assigned Behavioral Health Provider 02/28/25 Gavi Nieto PANavinC 500 [place] [address] Physician Broadcast Supervisor Dermatology 03/19/25 documented as of this encounter
--- OUTSIDE RECORDS SUMMARY | 2025-06-08 22:52 | XMS_ITS | Encounter Summary ---
Author Organization [facility] Address [address] [place] [address] Care Team Providers Care Utilities Service Investigator Name Role Phone Rio Jaquez MD Primary Care Provider Barry Kilpatrick MD Unavailable Michelle Henderson I RN Unavailable [phone] Rio Jaquez MD Unavailable +[phone] Jemima Jaramillo MD Unavailable Unavai Kelley Bautista RN Unavailable [phone] Sydnee Saleem MD Unavailable +[phone] Karlene Moya MD Unavailable Wilbert Quintero OD Unavailable +[phone] Rod Gauthier DPM Unavailable Jan Mahmood MD Unavailable [phone] Brandt Quintana MD Unavailable Jan Mahmood MD Unavailable +[phone] Rio Jaquez MD Unavailable +[phone] Dom Eason MD Unavailable Jayla Plaza RN [...] Unavailable +[phone] Wagner Oliver MD Unavailable +[phone] Laura Epperson NP Unavailable +[phone] Thom Taveras MD Unavailable +[phone] Joesph Crowe MD Unavailable +[phone] Joesph Crowe MD Unavailable [phone] Adonay Haq MD Unavailable +1- Denilson Srinivasan MD Unavailable + [phone] Jason Alvares MD Unavailable Ruth Riddle DPM, Podiatry /Foot and Ankle Surgery Unavailable Omar Carmona MD Primary Care Provider +1- Jignesh Mathias MD Unavailable Adonay Haq MD Unavailable +1- Omar Carmona MD Unavailable +[phone] Jason Alvares MD Unavailable Jignesh Mathias MD Unavailable Ayad Lopez PhD LP Unavailable Gavi Nieto PA-C Unavailable Encounter Details Date Type Department Care Team (Late st Contact Info) Description 03/11/2023 MyC Medical Advice [facility] Hepatology Clinic [address] [phone] Jayla Plaza RN Alcoholic cirrhosis [...] Answer Date Recorded PHQ-2 Score 2 03/15/2023 [facility] [place] of Occupat ional Health - Occupational Stress [...] Sex Assigned at Female 09/12/2020 12:05 PM CARDIOVASCULAR TECH Legal Sex Female 3:26 AM CARDIOVASCULAR TECH Gender Identity Female 09/12/2020 12:05 PM CARDIOVASCULAR TECH Sexual Orientation Straight 12/19/2021 10 :44 [...] st Contact Info) Description 06/13/2025 6:00 PM CARDIOVASCULAR TECH Ancillary Procedure [facility] Imaging [facility] Clinic [address] [phone] [place] Carmona MD [address] [place] [address] 06/14/2025 4:00 PM CARDIOVASCULAR TECH Office Visit [address]th [place] [phone] [place] Carmona MD [address] [place] [address] 06/15/2025 12:45 PM CARDIOVASCULAR TECH Therapy Visit [facility] Rehabilitation Services [address] [phone] Jason Alvares MD 420 [facility] 295 [place], [place] 118035 Chaya Castillo OTR [facility] 150 [place] [address] 06/19/2025 10:30 AM CARDIOVASCULAR TECH Virtual Visit [facility] Primary [facility] Clinic [address] [place] [address] 4th [place] [phone] Omar Carmona MD [address] [place] [address] [phone] Gerson Santos, MORENO 06/26/2025 11:00 AM CARDIOVASCULAR TECH Therapy Visit [facility] 150 [place] [phone] Jason Alvares MD [address] [place] [address] [phone] Chaya Castillo, OTR [address] [address] 07/09/2025 12:45 PM CARDIOVASCULAR TECH Therapy Visit [address] [phone] Jason Alvares MD [address] [place] [address] 198455 Chaya Castillo, OTR [address] [address] 07/18/2025 3:00 PM CARDIOVASCULAR TECH Office Visit [facility] Heart Clinic [address] [phone] Adonay Chapman APRN [facility] 500 [place], [place] 548725 11/05/2025 12:30 PM CDT Lab [facility] Lab [address]st [place] [phone] 11/05/2025 1:45 PM CDT Office Visit [facility] Dermatology Clinic [address] 3rd [place] [phone] Gavi Nieto PA-C Dermatology 0 [place] [address] 11/20/2025 10:30 AM CDT Virtual Visit [address] [address] Marquise Hanley MD [address] [place] [address] documented as of this encounter Goals Goal Patient Goal Type Associated Problems Recent Progress Patient-Stated? Author Quit smoking / using tobacco Lifestyle Rio Will MD Note: 06/25/14 planned quit date documented as of this encounter Results * (ABNORMAL) Basic metabolic panel (05/31/2023 8:18 AM CDT) [facility] Sodium 144 135 - 145 mmol/L 05/31/2023 8:46 AM CDT [facility] Comment:Reference intervals for this test were updated on 05/04/2023 to more accurately reflect our healthy population. There may be differences in the flagging of prior results with similar values performed with this method. Interpretation of those prior results can be made in the context of the updated reference intervals. Potassium 3.9 3.4 - 5.3 mmol/L 05/31/2023 8:46 AM CDT [facility] Chloride 110(H) 98 - 107 mmol/L 05/31/2023 8:46 AM CDT [facility] Carbon Dioxide (CO2) 25 22 - 29 mmol/L 05/31/2023 8:46 AM CDT [facility] Anion Gap 9 7 - 15 mmol/L 05/31/2023 8:46 AM CDT [facility] Urea Nitrogen 12.3 6.0 - 20.0 mg/dL 05/31/2023 8:46 AM CDT [facility] Creatinine 0.84 0.51 - 0.95 mg/dL 05/31/2023 8:46 AM CDT [facility] GFR Estimate 83 >60 mL/min/1. 73m2 05/31/2023 8:46 AM CDT [facility] Calcium 9.3 8.6 - 10.0 mg/dL 05/31/2023 8:46 AM CDT [facility] Glucose 100(H) 70 - 99 mg/dL 05/31/2023 8:46 AM CDT [facility] Blood STRUCTURE OF RIGHT UPPER LIMB / Unknown Venipuncture / Unknown 05/31/2023 8:18 AM CDT 05/31/2023 8:18 AM CDT us Jan Argueta MD LAB - BLOOD ORDERABLES Final Result [facility] Clinics and Surgery Center [address] 1st [place] [address] * (ABNORMAL) Hepatic function panel (05/31/2023 8:18 AM CDT) Pathologist [facility] Protein Total 6.9 6.4 - 8.3 g/dL 05/31/2023 8:46 AM CDT [facility] Albumin 4.2 3.5 - 5.2 g/dL 05/31/2023 8:46 AM CDT [facility] Bilirubin Total 2.1(H) <=1.2 mg/dL 05/31/2023 8:46 AM CDT [facility] Alkaline Phosphatase 70 35 - 104 U/L 05/31/2023 8:46 AM CDT [facility] AST 46(H) 0 - 45 U/L 05/31/2023 8:46 AM CDT [facility] Comment:Reference intervals for this test were updated on 01/18/2023 to more accurately reflect our healthy population. There may be differences in the flagging of prior results with similar values performed with this method. Interpretation of those prior results can be made in the context of the updated reference intervals. ALT 15 0 - 50 U/L 05/31/2023 8:46 AM CDT [facility] Comment:Reference intervals for [...] - 0.30 mg/dL 05/31/2023 8:46 AM CDT [facility] Blood STRUCTURE OF RIGHT UPPER LIMB / Unknown Venipuncture / Unknown 05/31/2023 8:18 AM CDT 05/31/2023 8:18 AM CDT Jan Argueta MD LAB - BLOOD ORDERABLES Final Result [facility] [address] 1st [place] [address] * (ABNORMAL) INR (05/31/2023 8:18 AM CDT) Pathologist [facility] INR 1.49(H) 0.85 - 1.15 05/31/2023 8:27 AM CDT [facility] Blood STRUCTURE OF RIGHT UPPER LIMB / Unknown Venipuncture / Unknown 05/31/2023 8:18 AM CDT 05/31/2023 8:18 AM CDT Jan Argueta MD LAB - BLOOD ORDERABLES Final Result [facility] [address] 1st [place] [address] * (ABNORMAL) CBC with platelets (05/31/2023 8:18 AM CDT) WBC Count 4.4 4.0 - 11.0 10e3/uL 05/31/2023 8:20 AM CDT [facility] RBC Count 4.22 3.80 - 5.20 10e6/uL 05/31/2023 8:20 AM CDT [facility] Hemoglobin 11.8 11.7 - 15.7 g/dL 05/31/2023 8:20 AM CDT [facility] Hematocrit 35.3 35.0 - 47.0 % 05/31/2023 8:20 AM CDT [facility] MCV 84 78 - 100 fL 05/31/2023 8:20 AM CDT [facility] MCH 28.0 26.5 - 33.0 pg 05/31/2023 8:20 AM CDT [facility] MCHC 33.4 31.5 - 36.5 g/dL 05/31/2023 8:20 AM CDT [facility] RDW 15.5(H) 10.0 - 15.0 % 05/31/2023 8:20 AM CDT [facility] Platelet Count 89(L) 150 - 450 10e3/uL 05/31/2023 8:20 AM CDT [facility] Blood STRUCTURE OF RIGHT UPPER LIMB / Unknown Venipuncture / Unknown 05/31/2023 8:18 AM CDT 05/31/2023 8:18 AM CDT us Jan Argueta MD LAB - BLOOD ORDERABLES Final Result [facility] Clinics and Surgery Center - [address] 1st [place] [address] documented in this encounter Visit Diagnoses Diagnosis [...] documented as of this encounter Care Teams Utilities Service Investigator Relationship Specialty Start Date End Date Rio Jaquez MD [address] [place] [address] 4 [place] [address] PCP - General Family Practice 12/02/10 07/13/24 [place] Carmona MD [address] [place] [address] [phone] PCP - General Family Medicine 07/14/24 Barry Kilpatrick MD [address] [place] [address] [id number] [place], [place] 163095 Neurology 07/19/14 Michelle Henderson I, RN Nurse Coordinator Neurology 07/19/14 Rio Jaquez MD [address] [place] [address] 4 [place], [place] 962235 Family Practice 10/15/14 Jemima Jaramillo MD negotiator sales 11/20/14 Kelley Chin, TANIA RUST [address] [place] [address] Nurse Coordinator Cardiology 11/04/15 Sydnee Saleem MD 420 [facility] 508 [place], [place] 440395 Cardiology 11/04/15 Karlene Moya MD [address] [place] [address] [phone] Ophthalmology 06/24/17 Wilbert Quintero, OD [address] [place] [address] 127285 Optometry 06/24/17 Rod Gauthier DPM 909 [place] [address] Motor And Controls Tester Primary Podiatric Medicine 06/21/18 Jan Mahmood MD [address] [place] [address] 2[address] [place] [address] Gastroenterology 11/05/20 Brandt uQintana MD [address] [place] [address] Resident 11/05/20 Jan Mahmood MD [address] [place] [address] 2[address] [place] [address] Assigned Gastroenterology Provider 12/01/20 Rio Jaquez MD [address] [place] [address] 4 [place] [address] Assigned PCP 11/17/20 09/30/24 Dom Eason MD [address] [place] [address] 353 [place] [address] Internal Medicine 12/02/20 Jayla Plaza, RN Specialty Stock Manager Hepatology 01/09/21 02/13/24 Jaimie Vernon, TANIA Specialty Stock Manager Cardiology 10/28/21 Ruth Riddle, DPM, Podiatry/Foot and Ankle Surgery [address] [facility] 300 [place] [address] Assigned Musculoskeletal Provider 11/30/21 09/30/23 Marquise Hanley MD [address] [place] [address] Endocrinology, Diabetes, and Metabolism 03/05/22 Vlad Ramey MD [address] [place] [address] Cardiovascular Disease 05/07/22 Joesph Crowe MD [address] [place] [address] 07370 Surgery 05/07/22 Luis Arrington MD [address] [place] [address] 17842 Assigned Neuroscience Provider 05/16/22 05/14/23 Michelle Padilla RN Specialty Stock Manager Cardiology 07/03/22 Vlad Ramey MD [address] [place] [address]2013 Assigned Heart and Vascular Provider 07/25/22 05/28/23 Marquise Hanley MD [address] [place] [address] 360[address] Assigned Endocrinology Provider 08/15/22 Wagner Oliver MD [address] [place] [address] Critical Care 12/15/22 Laura Epperson NP [address] [place] [address] 1932 [place] [address] Assigned Nephrology Provider 02/20/23 08/30/24 Thom Taveras MD [address] [facility], [address] [place] [address] Assigned Cancer Care Provider 02/06/23 08/20/23 Joesph Crowe MD [address] [place] [address] Surgery 03/17/23 Joesph Crowe MD [address] [place] [address] 80996 Assigned Surgical Provider 04/03/23 09/30/24 Adonay Haq MD [address] [place] [address] [phone] Internal Medicine 06/14/23OctoberDenilson MD [address] [facility] [address] [place] [address] Assigned Heart and Vascular Provider 05/29/23 11/28/24 Jason Alvares MD [address] [place] [address] [facility] 295 [place], [place] 003415 Assigned Neuroscience Provider 05/15/23 11/28/24 Ruth Riddle DPM, Podiatry/Foot and Ankle Surgery [address] 300 [place], [place] 983767 Assigned Musculoskeletal Provider 10/22/23 Jignesh Mathias MD [address] [place] [address] Gastroenterology 09/25/24 Adonay Haq MD [address] [place] [address] [phone] Assigned PCP 10/01/24 12/28/24 Omar Carmona MD [address] [place] [address] [phone] Assigned PCP 12/29/24 Jason Alvares MD [address] [place] [address] 064515 Assigned Neuroscience Provider 12/29/24 Jignesh Mathias MD [address] [place] [address] 520975 Assigned Surgical Provider 12/29/24 Ayad Lopez, PhD LP [address] [place] [address] 664165 Assigned Behavioral Health Provider 02/28/25 Gavi Nieto PA-C [address] [place] [address] 629225 Physician Real Property Appraiser Dermatology 03/19/25 documented as of this encounter
--- OUTSIDE RECORDS SUMMARY | 2025-06-08 22:53 | XMS_ITS | Encounter Summary ---
Author Organization [facility] Address [address] [place] [address] Care Team Providers Care Religious Healer Name Role Phone Rio Jaquez MD Primary Care Provider + [phone] Barry Kilpatrick MD Unavailable Michelle Henderson RN Unavailable [phone] Rio Jaquez MD Unavailable +[phone] Jemima Jaramillo MD Unavailable Unavai Kelley Bautista RN Unavailable +[phone] Sydnee Saleem MD Unavailable +[phone] Karlene Moya MD Unavailable +[phone] Wilbert Quintero OD Unavailable +[phone] Rod Gauthier DPM Unavailable +[phone] Nallely Hogue RN Unavailable Unavailable Jan Mahmood MD Unavailable +[phone] Brandt Quintana MD Unavailable +[phone] Jan Mahmood MD Unavailable +[phone] Rio Jaquez MD Unavailable +[phone] Dom Eason MD Unavailable +[phone] Jayla Plaza RN Unavailable +[phone] Sydnee [...] Unavailable +[phone] Dom Eason MD Unavailable +[phone] [place] Oliver MD Unavailable +[phone] Laura Epperson NP Unavailable +[phone] Thom Taveras MD Unavailable +[phone] Joepsh Crowe MD Unavailable + [phone] Joesph Crowe MD Unavailable + [phone] Adonay Haq MD Unavailable +[phone] Denilson Srinivasan MD Unavailable + [phone] Jason Alvares MD Unavailable Ruth Riddle DPM, Podiatry /Foot and Ankle Surgery Unavailable [place] Carmona MD Primary Care Provider +1- Jignesh Mathias MD Unavailable Adonay Haq MD Unavailable +1- [place] Carmona MD Unavailable +[phone] Jason Alvares MD Unavailable Jignesh Mathias MD Unavailable Ayad Lopez PhD LP Unavailable +[phone] Gavi Nieto PA-C Unavailable +[phone] Encounter Details Date Type Department Care Team (Late st Contact Info) Description 04/29/2022 MyC Medical Advice [facility] [address] [place] [address] Ruth Riddle, DPVik, Podiatry/Foot and Ankle Surgery [address] [place], [place] [address] Social History Tobacco Use Types Packs/Day Years [...] than three times a week 08/27/2021 Attends Alevism Services Not on file 08/27 Do you belong to any clubs o r organizations such as synagogue groups, unions, fraternal or athletic groups, or [...] Answer Date Recorded PHQ-2 Score 2 04/21/2022 [facility] Occupat [facility] - Occupational Stress Questionnaire Answer Date Recorded [...] place to sleep or slept in a alf (including now)? No 08/27/2021 Comments No Sex and Gender Information Value Date Recorded Sex Assigned at Female 09/12/2020 12:05 PM CUPOLA LINER HELPER Legal Sex Female 3:26 AM CUPOLA LINER HELPER Gender Identity Female 09/12/2020 12:05 PM CUPOLA LINER HELPER Sexual Orientation Straight 12/19/2021 10 :44 AM [...] st Contact Info) Description 06/13/2025 6:00 PM CUPOLA LINER HELPER Ancillary Procedure [facility] [address] [phone] [place] Carmona MD [address] [place] [address] 189565 06/14/2025 4:00 PM CUPOLA LINER HELPER Office Visit [facility] [address] 4th [place] [phone] Omar Carmona MD [address] [place] [address] [phone] 06/15/2025 12:45 PM CUPOLA LINER HELPER Therapy Visit [facility] [address] [phone] Jason Alvares MD [address] [place] [address] Chaya Castillo OTR [facility] 150 [place] [address] 06/19/2025 10:30 AM CUPOLA LINER HELPER Virtual Visit [facility] [address] [place] [address] 4th [place] [phone] Omar Carmona MD [address] [place] [address] 488095 Gerson Santos [facility] 06/26/2025 11:00 AM CUPOLA LINER HELPER Therapy Visit [address] [phone] Jason Alvares MD [address] [place] [address] Chaya Castillo OTR [facility] 150 [place] [address] 07/09/2025 12:45 PM CUPOLA LINER HELPER Therapy Visit [facility] 150 [place] [phone] Jason Alvares MD [address] [place] [address] Chaya Castillo OTR [facility] 150 [place] [address] 07/18/2025 3:00 PM CUPOLA LINER HELPER Office Visit [facility] [address] [phone] Adonay Chapman APRN [address] 497165 11/05/2025 12:30 PM CDT Lab [facility] [address] 1st [place] [phone] 11/05/2025 1:45 PM CDT Office Visit [facility] [address] 3rd [place] [phone] Gavi Nieto PA-C Dermatology [address] [place] [address] 11/20/2025 10:30 AM CDT Virtual Visit [address] [phone] Marquise Hanley MD [address] [place] [address] 660305 documented as of this encounter Goals Goal [...] documented as of this encounter Care Teams Religious Healer Relationship Specialty Start Date End Date Rio Jaquez MD [address] [place] [address] 46896 PCP - General Family Practice 12/02/10 07/13/24 Omar Carmona MD [address] [place] [address] 29996 PCP - General Family Medicine 07/14/24 Barry Kilpatrick MD [address] [place] [address] [address]ET [place] [address] Neurology 07/19/14 Michelle Henderson I, RN Nurse Coordinator Neurology 07/19/14 Rio Jaquez MD [address] [place] [address] [address] 4 [place], [place] 855035 Family Practice 10/15/14 Jemima Jaramillo MD crusher operator 11/20/14 Kelley Chin RN [address] [phone] Nurse Coordinator Cardiology 11/04/15 Sydnee Saleem MD [address] [place] [address] 508 [place], [place] 830025 Cardiology 11/04/15 Karlene Moya MD [address] [place] [address] 088175 Ophthalmology 06/24/17 Wilbert Quintero, OD [address] [place] [address] 059255 Optometry 06/24/17 Rod Gauthier DPM [address] [place] [address] [phone] Nut Packer Primary Podiatric Medicine 06/21/18 Nallely Hogue, RN Registered Nurse 02/20/19 11/23/22 Jan Mahmood MD 516 [facility] 2A [place] [address] Gastroenterology 11/05/20 Brandt Quintana MD [address] [place] [address] Resident 11/05/20 Jan Mahmood MD 6 [facility] 2A [place] [address] Assigned Gastroenterology Provider 12/01/20 Rio Jaquez MD [address] [place] [address] 4 [place] [address] Assigned PCP 11/17/20 09/30/24 Dom Eason MD [address] [place] [address] 36593 Internal Medicine 12/02/20 Jayla Plaza RN Specialty Airways Control Specialist Hepatology 01/09/21 02/13/24 Sydnee Saleem MD [address] [facility] [address] [place] [address] [phone] Assigned Heart and Vascular Provider 02/02/21 07/24/22 Jaimie Vernon, TANIA Specialty Airways Control Specialist Cardiology 10/28/21 Ruth Riddle, DPM, Podiatry/Foot and Ankle Surgery [address] [facility] 300 [place], [place] 702957 Assigned Musculoskeletal Provider 11/30/21 09/30/23 Jason Alvares MD [address] [place] [address] 52788 Assigned Neuroscience Provider 01/03/22 05/15/22 Marquise Hanley MD [address] [place] [address] Endocrinology, Diabetes, and Metabolism 03/05/22 Vlad Ramey MD [address] [place] [address] 67540 Cardiovascular Disease 05/07/22 Joesph Crowe MD [address] [place] [address] 76299 Surgery 05/07/22 Luis Arrington MD [address] [place] [address] 704275 Assigned Neuroscience Provider 05/16/22 05/14/23 Michelle Padilla RN Specialty Airways Control Specialist Cardiology 07/03/22 Vlad Ramey MD [address] [place] [address] 29506 Assigned Heart and Vascular Provider 07/25/22 05/28/23 Marquise Hanley MD [address] [place] [address] 34495 Assigned Endocrinology Provider 08/15/22 Dom Eason MD [address] [place] [address] 39575 Assigned Nephrology Provider 11/28/22 02/19/23 Wagner Oliver MD [address] [place] [address] Critical Care 12/15/22 Laura Epperson NP 717 [facility] 1932 [place] [address] Assigned Nephrology Provider 02/20/23 08/30/24 Thom Taveras MD [facility] [place] [phone] [place] [address] Assigned Cancer Care Provider 02/06/23 08/20/23 Joesph Crowe MD [address] [place] [address] 79180 Surgery 03/17/23 Joesph Crowe MD [address] [place] [address] 10037 Assigned Surgical Provider 04/03/23 09/30/24 Adonay Haq MD [address] [place] [address] 34838 Internal Medicine 06/14/23OctoberDenilson MD [address] [facility] [address] [place] [address] Assigned Heart and Vascular Provider 05/29/23 11/28/24 Jason Alvares MD 420 [facility] 295 [place], [place] 778705 Assigned Neuroscience Provider 05/15/23 11/28/24 Ruth Riddle DPM, Podiatry/Foot and Ankle Surgery [address] [place] [address] Assigned Musculoskeletal Provider 10/22/23 Jignesh Mathias MD [address] [place] [address] 03473 Gastroenterology 09/25/24 Adonay Haq MD [address] [place] [address] [phone] Assigned PCP 10/01/24 12/28/24 Omar Carmona MD [address] [place] [address] 874695 Assigned PCP 12/29/24 Jason Alvares MD [address] [place] [address] 295 [place], [place] 568405 Assigned Neuroscience Provider 12/29/24 Jignesh Mathias MD [address] [place] [address] 34490 Assigned Surgical Provider 12/29/24 Ayad Lopez, PhD LP [address] [place] [address] 216455 Assigned Behavioral Health Provider 02/28/25 Gavi Nieto, PA-C [address] [place] [address] [phone] Physician Unpaid Intern Dermatology 03/19/25 documented as of this encounter
--- OUTSIDE RECORDS SUMMARY | 2025-06-08 22:53 | XMS_ITS | Encounter Summary ---
Author Organization [facility] Address [address] [place] [address] 8[address]78 Care Team Providers Care Stone Banker Name Role Phone Rio Jaquez MD Primary Care Provider + [phone] Barry Kilpatrick MD Unavailable Michelle Henderson RN Unavailable +[phone] Rio Jaquez MD Unavailable +[phone] Jemima Jaramillo MD Unavailable Unavai Kelley Bautista RN Unavailable +[phone] Sydnee Saleem MD Unavailable +[phone] Karlene Moya MD Unavailable +[phone] Wilbert Quintero OD Unavailable +[phone] Rod Gauthier DPM Unavailable +[phone] Nallely Hogue RN Unavailable Unavailable Jan Mahmood MD Unavailable +[phone] Brandt Quintana MD Unavailable +[phone] Jan Mahmood MD Unavailable +[phone] Rio Jaquez MD Unavailable +[phone] Dom Eason MD Unavailable +[phone] Jayla Plaza RN Unavailable +[phone] Sydnee Saleme MD Unavailable Jaimie Vernon RN Unavailable Unavailable [...] Unavailable +[phone] Dom Eason MD Unavailable +[phone] Wagner Oliver MD Unavailable +[phone] Laura Epperson NP Unavailable +[phone] Thom Taveras MD Unavailable +[phone] Joesph Crowe MD Unavailable + [phone] Joesph Crowe MD Unavailable + [phone] Adonay Haq MD Unavailable +1- Denilson Srinivasan MD Unavailable + [phone] aJson Alvares MD Unavailable Ruth Riddle DPM, Podiatry /Foot and Ankle Surgery Unavailable Omar Carmona MD Primary Care Provider +1- Jignesh Mathias MD Unavailable Adonay Haq MD Unavailable +1- Omar Carmona MD Unavailable +[phone] Jason Alvares MD Unavailable Jignesh Mathias MD Unavailable Ayad Lopez PhD Unavailable +[phone] Gavi Nieto-C Unavailable +[phone] Encounter Details Date Type Department Care Team (Late st Contact Info) Description 05/12/2022 [facility] Medical Advice [address] [place] [address] Luis Arrington MD [address] [place] [address] Social History Tobacco Use Types Packs/Day [...] Answer Date Recorded PHQ-2 Score 1 05/07/2022 [facility] - [facility] Questionnaire Answer [...] Sex Assigned at Female 09/12/2020 12:05 PM ANTENNA ENGINEER Legal Sex Female 3:26 AM ANTENNA ENGINEER Gender Identity Female 09/12/2020 12:05 PM ANTENNA ENGINEER Sexual Orientation Straight 12/19/2021 10 :44 [...] st Contact Info) Description 06/13/2025 6:00 PM ANTENNA ENGINEER Ancillary Procedure [facility] [address]st [place] [address] Omar Carmona MD [address] [place] [address] [phone] 06/14/2025 4:00 PM ANTENNA ENGINEER Office Visit [facility] [address]th [place] [phone] Omar Carmona MD [address] [place] [address] [id number] 06/15/2025 12:45 PM ANTENNA ENGINEER Therapy Visit [facility] [address] [phone] Jason Avlares MD [address] [place] [address] [phone] Chaya Castillo [facility] 150 [place] [address] 06/19/2025 10:30 AM ANTENNA ENGINEER Virtual Visit [facility] [address] [place] [address] 4th [place] [phone] Omar Carmona MD [address] [place] [address] [phone] Gerson Santos, [facility] 06/26/2025 11:00 AM ANTENNA ENGINEER Therapy Visit [address] [phone] Jason Alvares MD [address] [place] [address] 437175 Ch[facility]illo [facility] 150 [place] [address] 07/09/2025 12:45 PM ANTENNA ENGINEER Therapy Visit [address] [phone] Jason Alvares MD [address] [place] [address] 877215 [facility] 150 [place] [address] 07/18/2025 3:00 PM ANTENNA ENGINEER Office Visit [facility] [address] [phone] Adonay Chapman APRN [address] [phone] 11/05/2025 12:30 PM CDT Lab [facility] [address] [place] [address] 1st [place] [phone] 11/05/2025 1:45 PM CDT Office Visit [facility] [address] [place] [phone] Gavi Nieto PA-C Dermatology [address] [place] [address] 11/20/2025 10:30 AM CDT Virtual Visit [address] [phone] Marquise Hanley MD [address] [place] [address] [phone] documented as of this encounter Goals Goal [...] documented as of this encounter Care Teams Stone Banker Relationship Specialty Start Date End Date Rio Jaquez MD [address] [place] [address] 75903 PCP - General Family Practice 12/02/10 07/13/24 Omar Carmona MD [address] [place] [address] 95685 PCP - General Family Medicine 07/14/24 Barry Kilpatrick MD [address] [place] [address] [id number] [place] [address] Neurology 07/19/14 Michelle Henderson I, RN Nurse Coordinator Neurology 07/19/14 Rio Jaquez MD [address] [place] [address] [address] 4 [place], [place] 602645 Family Practice 10/15/14 Jemima Jaramillo MD trust vault custodian 11/20/14 Kelley Chin RN [address] 144005 Nurse Coordinator Cardiology 11/04/15 Sydnee Saleem MD 420 [facility] 508 [place], [place] 685805 Cardiology 11/04/15 Karlene Moya MD [address] [place] [address] 687975 Ophthalmology 06/24/17 Wilbert Quintero, OD [address] [place] [address] 456275 Optometry 06/24/17 Rod Gauthier DPM [address] [place] [address] 333165 Procurement Forester Primary Podiatric Medicine 06/21/18 Nallely Hogue, RN Registered Nurse 02/20/19 11/23/22 Jan Mahmood MD 516 [facility] 2A [place] [address] Gastroenterology 11/05/20 Brandt Quintana MD 1414 [place] [address] Resident 11/05/20 Jan Mahmood MD 516 [facility] 2A [place] [address] Assigned Gastroenterology Provider 12/01/20 Rio Jaquez MD 909 [facility] 4 [place] [address] Assigned PCP 11/17/20 09/30/24 Dom Eason MD [address] [place] [address] 353 [place] [address] Internal Medicine 12/02/20 Jayla Plaza RN Specialty Steam Drier Tender Hepatology 01/09/21 02/13/24 Sydnee Saleem MD [address] [phone] Assigned Heart and Vascular Provider 02/02/21 07/24/22 Jaimie Vernon, TANIA Specialty Steam Drier Tender Cardiology 10/28/21 Ruth Riddle DPM, Podiatry/Foot and Ankle Surgery 155[address] [facility] 300 [place] [address] Assigned Musculoskeletal Provider 11/30/21 09/30/23 Jason Alvares MD [address] [place] [address] 74711 Assigned Neuroscience Provider 01/03/22 05/15/22 Marquise Hanley MD [address] [place] [address] 57341 Endocrinology, Diabetes, and Metabolism 03/05/22 Vlad Ramey MD [address] [place] [address] [phone] Cardiovascular Disease 05/07/22 Joesph Crowe MD [address] [place] [address] 23964 Surgery 05/07/22 Luis Arrington MD [address] [place] [address] [phone] Assigned Neuroscience Provider 05/16/22 05/14/23 Michelle Padilla RN Specialty Steam Drier Tender Cardiology 07/03/22 Vlad Ramey MD [address] [place] [address] 783535 Assigned Heart and Vascular Provider 07/25/22 05/28/23 Marquise Hanley MD [address] [place] [address] 39484 Assigned Endocrinology Provider 08/15/22 Dom Eason MD [address] [place] [address] 32338 Assigned Nephrology Provider 11/28/22 02/19/23 Wagner Oliver MD [address] [address] Critical Care 12/15/22 Laura Epperson NP 717 [facility] 1932 [place] [address] Assigned Nephrology Provider 02/20/23 08/30/24 Thom Taveras MD [address] [place], [place] 6184205 [place] [address] Assigned Cancer Care Provider 02/06/23 08/20/23 Joesph Crowe MD [address] [place] [address] 42984 Surgery 03/17/23 Joesph Crowe MD [address] [place] [address] 62983 Assigned Surgical Provider 04/03/23 09/30/24 Adonay Haq MD [address] [place] [address] 39783 Internal Medicine 06/14/23OctoberDenilson MD [address] [facility] [address] [address] Assigned Heart and Vascular Provider 05/29/23 11/28/24 Jason Alvares MD 420 [facility] 295 [place] [address] Assigned Neuroscience Provider 05/15/23 11/28/24 Ruth Riddle DPVik, Podiatry/Foot and Ankle Surgery [address] [place] [address] [place] [address] 84015 Assigned Musculoskeletal Provider 10/22/23 Jignesh Mathias MD [address] [place] [address] 02531 Gastroenterology 09/25/24 Adonay Haq MD [address] [place] [address] [phone] Assigned PCP 10/01/24 12/28/24 Omar Carmona MD [address] [place] [address] 747265 Assigned PCP 12/29/24 Jason Alvares MD [address] [place] [address] [phone] Assigned Neuroscience Provider 12/29/24 Jignesh Mathias MD [address] [place] [address] 753015 Assigned Surgical Provider 12/29/24 Ayad Lopez, PhD LP [address] [place] [address] [phone] Assigned Behavioral Health Provider 02/28/25 Gavi Nieto PANavinC [address] [place] [address] 659105 Physician Wildlife Science Professor Dermatology 03/19/25 documented as of this encounter
--- OUTSIDE RECORDS SUMMARY | 2025-06-08 22:53 | XMS_ITS | Encounter Summary ---
Author Organization [facility] Address [address] [place] [address] 37782 Care Team Providers Care Communication Skills Instructor Name Role Phone Rio Jaquez MD Primary Care Provider + [phone] Barry Kilpatrick MD Unavailable Michelle Henderson RN Unavailable [phone] Rio Jaquez MD Unavailable +[phone] Jemima Jaramillo MD Unavailable Unavai Kelley Bautista RN Unavailable +[phone] Sydnee Saleem MD Unavailable +[phone] Karlene Moya MD Unavailable +[phone] Wilbert Quintero OD Unavailable +[phone] Rod GauthierM Unavailable +[phone] Nallely Hogue RN Unavailable Unavailable Larisa Vargas RN Unavailable Unavailable Jan Mahmood MD Unavailable +[phone] Brandt Quintana MD Unavailable +[phone] Jan Mahmood MD Unavailable +[phone] Rio Jaquez MD Unavailable +[phone] Dom Eason MD Unavailable +[phone] Jayla Plaza RN Unavailable +[phone] Sydnee [...] Unavailable +[phone] Dom Eason MD Unavailable +[phone] Wagner Oliver MD Unavailable +[phone] Laura Epperson NP Unavailable +[phone] Thom Taveras MD Unavailable +[phone] Joesph Crowe MD Unavailable +[phone] Joesph Crowe MD Unavailable + [phone] Adonay Haq MD Unavailable +[phone] Denilson Srinivasan MD Unavailable + [phone] Jason Alvares MD Unavailable Ruth Riddle DPM, Podiatry /Foot and Ankle Surgery Unavailable Omar Carmona MD Primary Care Provider [phone] Jignesh Mathias MD Unavailable Adonay Haq MD Unavailable Omar Carmona MD Unavailable +[phone] Jason Alvares MD Unavailable Jignesh Mathias MD Unavailable Ayad Lopez PhD LP Unavailable +[phone] Gavi Nieto PA-C Unavailable +[phone] Encounter Details Date Type Department Care Team (Late st Contact Info) Description 02/09/2022 [facility] Medical Advice [facility] Neurology Clinic [address] [address] Luis Arrington MD [address] [place] [address] Social History Tobacco Use Types Packs/Day [...] Sex Assigned at Female 09/12/2020 12:05 PM EXERCISE SPECIALIST Legal Sex Female 3:26 AM EXERCISE SPECIALIST Gender Identity Female 09/12/2020 12:05 PM EXERCISE SPECIALIST Sexual Orientation Straight 12/19/2021 10 :44 [...] st Contact Info) Description 06/13/2025 6:00 PM EXERCISE SPECIALIST Ancillary Procedure [facility] Imaging [facility] CT Clinic [address]st [place] [phone] Omar Carmona MD [address] [place] [address] 61347 06/14/2025 4:00 PM EXERCISE SPECIALIST Office Visit [facility] [address]th [place] [phone] Omar Carmona MD [address] [place] [address] 27243 06/15/2025 12:45 PM EXERCISE SPECIALIST Therapy Visit [facility] Rehabilitation Services [address] [address] Jason Alvares MD [address] [place] [address] 156075 Chaya Castillo OTR [facility] 150 [place] [address] 06/19/2025 10:30 AM EXERCISE SPECIALIST Virtual Visit [facility] [address] [place] [address] 4th [place] [phone] Omar Carmona MD [address] [place] [address] [phone] Gerson Santos [facility] 06/26/2025 11:00 AM EXERCISE SPECIALIST Therapy Visit [facility] 150 [place] [phone] Jason Alvares MD [address] [place] [address] [facility] 150 [place] [address] 07/09/2025 12:45 PM EXERCISE SPECIALIST Therapy Visit [facility] 150 [place] [phone] Jason Alvares MD [address] [place] [address] Chaya Cast[facility] [address] [place] [address] 07/18/2025 3:00 PM EXERCISE SPECIALIST Office Visit [facility] Heart Clinic [address] [phone] Adonay Chapman APRN [address] [address] 11/05/2025 12:30 PM CDT Lab [facility] Lab [address] [place] [phone] 11/05/2025 1:45 PM CDT Office Visit [facility] Dermatology Clinic [address]rd [place] [phone] Gavi Nieto PA-C Dermatology [address] [place] [address] 6[address] 11/20/2025 10:30 AM CDT Virtual Visit [address] [phone] Marquise Hanley MD [address] [place] [address] 28321 documented as of this encounter Goals Goal [...] Total Score: 5 08/27/19 22 9:25 AM EXERCISE SPECIALIST documented as of this encounter Care Teams Communication Skills Instructor Relationship Specialty Start Date End Date Rio Jaquez MD [address] [place] [address] 49737 PCP - General Family Practice 12/02/10 07/13/24 Omar Carmona MD 9 [place], [place] 633915 PCP - General Family Medicine 07/14/24 Barry Kilpatrick MD [address] [place] [address] [id number] [place], [place] 401955 Neurology 07/19/14 Michelle Henderson I, RN Nurse Coordinator Neurology 07/19/14 Rio Jaquez MD [address] [place] [address] 4 [place], [place] 765015 Family Practice 10/15/14 Jemima Jaramillo MD oil field equipment mechanic 11/20/14 Kelley Chin, TANIA [facility] [address] [place] [address] 753495 Nurse Coordinator Cardiology 11/04/15 Sydnee Saleem MD [address] [place] [address] 508 [place], [place] 064775 Cardiology 11/04/15 Karlene Moya MD [address] [place] [address] [phone] Ophthalmology 06/24/17 Wilbert Quintero, OD [address] [place] [address] Optometry 06/24/17 Rod Gauthier DPM [address] [place] [address] [phone] Buccaro Primary Podiatric Medicine 06/21/18 Nallely Hogue, RN Registered Nurse 02/20/19 11/23/22 Larisa Vargas, TANIA Specialty Preparer Samples And Repairs Cardiology 04/18/19 03/06/22 Jan Mahmood MD 516 [facility] 2A [place] [address] Gastroenterology 11/05/20 Brandt Quintana MD 1414 [place] [address] Resident 11/05/20 Jan Mahmood MD 516 [facility] 2A [place] [address] Assigned Gastroenterology Provider 12/01/20 Roi Jaquez MD 909 [facility] 4 [place], [place] 946425 Assigned PCP 11/17/20 09/30/24 Dom Eason MD 717 [facility] 353 [place], [place] 383884 Internal Medicine 12/02/20 Jayla Plaza, RN Specialty Preparer Samples And Repairs Hepatology 01/09/21 02/13/24 Sydnee Saleem MD [address] [address] Assigned Heart and Vascular Provider 02/02/21 07/24/22 Cristian Barragan MD 2945 [place] [address] Assigned Infectious Disease Provider 02/21/21 03/06/22 Jaimie Vernon, RN Specialty Preparer Samples And Repairs Cardiology 10/28/21 Ruth Riddle DPM, Podiatry/Foot and Ankle Surgery [address] [place] [address] Assigned Musculoskeletal Provider 11/30/21 09/30/23 Jason Alvares MD [address] [place] [address] 87209 Assigned Neuroscience Provider 01/03/22 05/15/22 Marquise Hanley MD [address] [place] [address] 83749 Endocrinology, Diabetes, and Metabolism 03/05/22 Vlad Ramey MD [address] [place] [address] 649675 Cardiovascular Disease 05/07/22 Joesph Crowe MD [address] [place] [address] 51477 Surgery 05/07/22 Luis Arrington MD [address] [place] [address] 07203 Assigned Neuroscience Provider 05/16/22 05/14/23 Michelle Padilla RN Specialty Preparer Samples And Repairs Cardiology 07/03/22 Vlad Ramey MD [address] [place] [address] 074125 Assigned Heart and Vascular Provider 07/25/22 05/28/23 Marquise Hanely MD 9 [place] [address] Assigned Endocrinology Provider 08/15/22 Dom Eason MD 717 [facility] [place]HAEL 353 [place] [address] Assigned Nephrology Provider 11/28/22 02/19/23 Wagner Oliver MD [address] [place] [address] Critical Care 12/15/22 Laura Epperson NP [address] [place] [address] 1932 [place] [address] Assigned Nephrology Provider 02/20/23 08/30/24 Thom Taveras MD [address] [place] [address], [address] [address] Assigned Cancer Care Provider 02/06/23 08/20/23 Joesph Crowe MD [address] [place] [address] 17168 Surgery 03/17/23 Joesph Crowe MD [address] [place] [address] 64479 Assigned Surgical Provider 04/03/23 09/30/24 Adonay Haq MD [address] [place] [address]56 Internal Medicine 06/14/23October, Denilson Jackson MD [address] [place], [place] 778035 Assigned Heart and Vascular Provider 05/29/23 11/28/24 Jason Alvares MD [address] [place] [address] 60740 Assigned Neuroscience Provider 05/15/23 11/28/24 Ruth Riddle DPM, Podiatry/Foot and Ankle Surgery [address] [place] [address] Assigned Musculoskeletal Provider 10/22/23 Jignesh Mathias MD [address] [place] [address] 19517 Gastroenterology 09/25/24 Adonay Haq MD [address] [place] [address] 874875 Assigned PCP 10/01/24 12/28/24 Omar Carmona MD [address] [place] [address] 03087 Assigned PCP 12/29/24 Jason Alvares MD [address] [place] [address] 654855 Assigned Neuroscience Provider 12/29/24 Jignesh Mathias MD [address] [place] [address] 88502 Assigned Surgical Provider 12/29/24 Ayad Lopez, PhD LP [address] [place] [address] 404255 Assigned Behavioral Health Provider 02/28/25 Gavi Nieto PA-C [address] [place] [address] [phone] Physician Heading Pinner Dermatology 03/19/25 documented as of this encounter
--- OUTSIDE RECORDS SUMMARY | 2025-06-08 22:53 | XMS_ITS | Encounter Summary ---
Author Organization [employer] Address [address] [place] [address]509 Care Team Providers Care Customer Quality Engineer Name Role Phone Rio Jaquez MD Primary Care Provider + [phone] Barry Kilpatrick MD Unavailable Michelle Henderson RN Unavailable +[phone] Rio Jaquez MD Unavailable +[phone] Jemima Jaramillo MD Unavailable Unavai Kelley Bautista RN Unavailable +[phone] Sydnee Saleem MD Unavailable +[phone] Karlene Moya MD Unavailable +[phone] Wilbert Quintero OD Unavailable +[phone] Rod Gauthier DPM Unavailable +[phone] Nallely Hogue RN Unavailable Unavailable Jan Mahmood MD Unavailable +[phone] Brandt Quintana MD Unavailable +[phone] Jan Mahmood MD Unavailable +[phone] Rio Jaquez MD Unavailable +[phone] Dom Eason MD Unavailable +[phone] Jayla Plaza RN Unavailable +[phone] Sydnee Saleem MD Unavailable +[phone] Jaimie Vernon RN Unavailable Unavailable Ruth RiddleM, Podiatry /Foot and Ankle Surgery Unavailable Marquise Hanley MD Unavailable +[phone] Vlad aRmey MD Unavailable +[phone] Joesph Crowe MD Unavailable + [phone] Luis Arrington MD Unavailable +[phone] Michelle Padilla RN Unavailable Unavaila ble Vlad Ramey MD Unavailable +[phone] Marquise Hanley MD Unavailable +[phone] Dom Eason MD Unavailable +[phone] Wagner Oliver MD Unavailable +[phone] ZeenatLaura rodriguez NP Unavailable +[phone] Thom Taveras MD Unavailable +[phone] Joesph Crowe MD Unavailable +[phone] Joesph Crowe MD Unavailable + [phone] Adonay Haq MD Unavailable +[phone] Denilson Srinivasan MD Unavailable + [phone] [facility] Unavailable Ruth Riddle DPM, Podiatry /Foot and Ankle Surgery Unavailable Omar Carmona MD Primary Care Provider +[phone] Jignesh Mathias MD Unavailable Adonay Haq MD Unavailable +1- Omar Carmona MD Unavailable Jason Alvares MD Unavailable Jignesh Mathias MD Unavailable Ayad Lopez PhD LP Unavailable Gavi Nieto PA-C Unavailable +[phone] Encounter Details Date Type Department Care Team (Late st Contact Info) Description 06/22/2022 MyC Medical Advice [facility] [address] 3rd [place] [address] Jason Alvares MD [address] [facility] [address] [place] [address] Seizures, post-traumatic (H) Social History [...] Answer Date Recorded PHQ-2 Score 1 06/17/2022 [facility]at ional [facility] - Occupational Stress Questionnaire Answer Date [...] Sex Assigned at Female 09/12/2020 12:05 PM SECURITY GUARD Legal Sex Female 3:26 AM SECURITY GUARD Gender Identity Female 09/12/2020 12:05 PM SECURITY GUARD Sexual Orientation Straight 12/19/2021 10 :44 AM [...] to have Coronavirus/COVID-19? Yes 06/17/2022 8:17 AM SECURITY GUARD documented as of this encounter Plan of Treatment Upcoming Encounters Date Type Department Care Team (Late st Contact Info) Description 06/13/2025 6:00 PM SECURITY GUARD Ancillary Procedure [facility] [address] 1st [place] [phone] Omar Carmona MD [address] [place] [address] 610825 06/14/2025 4:00 PM SECURITY GUARD Office Visit [facility] [address] 4th [place] [phone] Omar Carmona MD [address] [place] [address] 81145 06/15/2025 12:45 PM SECURITY GUARD Therapy Visit [facility] [address] [phone] Jason Alvares MD [address] [place] [address] [address] [place], [place] 039855 Chaya Castillo, OTR [facility] [address] [place] [address] 06/19/2025 10:30 AM SECURITY GUARD Virtual Visit [facility] [address] [place] [address] 4th [place] [phone] Omar Carmona MD [address] [place] [address] 797345 Gerson Santos, [facility] 06/26/2025 11:00 AM SECURITY GUARD Therapy Visit [address] [phone] Jason Alvares MD [address] [place] [address] 455875 Chaya Castillo, OTR [facility] 150 [place] [address] 07/09/2025 12:45 PM SECURITY GUARD Therapy Visit [address] [phone] Jason Alvares MD [address] [place] [address] 339785 [facility]illo, [facility] 150 [place] [address] 07/18/2025 3:00 PM SECURITY GUARD Office Visit [facility] [address] [phone] Adonay Chapman APRN [address] 123195 11/05/2025 12:30 PM CDT Lab [facility] [address] 1st [place] [phone] 11/05/2025 1:45 PM CDT Office Visit [facility] [address] [place] [phone] Gavi Nieto PA-C Dermatology [address] [place] [address] 11/20/2025 10:30 AM CDT Virtual Visit [address] [place] [address] Marquise Hanley MD [address] [place] [address] 901055 documented as of this encounter Goals Goal [...] as of this encounter Care Teams Customer Quality Engineer Relationship Specialty Start Date End Date Rio Jaquez MD [address] [place] [address] 4 [place] [address] PCP - General Family Practice 12/02/10 07/13/24 Omar Carmona MD [address] [place] [address] 755735 PCP - General Family Medicine 07/14/24 Barry Kilpatrick MD [address] [place] [address] [id number] [place], [place] 487945 Neurology 07/19/14 Michelle Henderson I, RN Nurse Coordinator Neurology 07/19/14 Rio Jaquez MD [address] [place] [address] [address] [place], [place] 546785 Family Practice 10/15/14 Jemima Jaramillo MD salesperson shoes 11/20/14 Kelley Chin RN [address] [phone] Nurse Coordinator Cardiology 11/04/15 Sydnee Saleem MD 420 [facility] [address] [place], [place] 158025 Cardiology 11/04/15 Karlene Moya MD [address] [place] [address] 290205 Ophthalmology 06/24/17 Wilbert Quintero, OD [address] [place] [address] [phone] Optometry 06/24/17 Rod Gauthier DPM [address] [place] [address] 685505 Workforce Investment Act Career Manager Primary Podiatric Medicine 06/21/18 Nallely Hogue, RN Registered Nurse 02/20/19 11/23/22 Jan Mahmood MD 516 [facility] [address] [place] [address] Gastroenterology 11/05/20 Brandt Quintana MD 1414 [place] [address] Resident 11/05/20 Jan Mahmood MD 516 [facility] [address] [place] [address] Assigned Gastroenterology Provider 12/01/20 Rio Jaquez MD 909 [facility] 4 [place], [place] 242025 Assigned PCP 11/17/20 09/30/24 Dom Eason MD [address] [place] [address] [address] [place] [address] Internal Medicine 12/02/20 Jayla Plaza, RN Specialty Guest Experience Manager Hepatology 01/09/21 02/13/24 Sydnee Saleem MD [address] [place] [address] [phone] Assigned Heart and Vascular Provider 02/02/21 07/24/22 Jaimie Vernon, RN Specialty Guest Experience Manager Cardiology 10/28/21 Ruth Riddle, DPM, Podiatry/Foot and Ankle Surgery [address] [facility] [address] [place] [address] Assigned Musculoskeletal Provider 11/30/21 09/30/23 Marquise Hanley MD [address] [place] [address] 60043 Endocrinology, Diabetes, and Metabolism 03/05/22 Vlad Ramey MD [address] [place] [address] 52355 Cardiovascular Disease 05/07/22 Joesph Crowe MD [address] [place] [address] 93161 Surgery 05/07/22 Luis Arrington MD [address] [place] [address] 75484 Assigned Neuroscience Provider 05/16/22 05/14/23 Michelle Padilla RN Specialty Guest Experience Manager Cardiology 07/03/22 Vlad Ramey MD [address] [place] [address] 37655 Assigned Heart and Vascular Provider 07/25/22 05/28/23 Marquise Hanley MD [address] [place] [address] 88528 Assigned Endocrinology Provider 08/15/22 Dom Eason MD [address] [place] [address] 38104 Assigned Nephrology Provider 11/28/22 02/19/23 Wagner Oliver MD [address] [place] [address] Critical Care 12/15/22 Laura Epperson NP 717 [facility] [address] [place] [address] Assigned Nephrology Provider 02/20/23 08/30/24 Thom Taveras MD [address] [place] [address] Assigned Cancer Care Provider 02/06/23 08/20/23 Joesph Crowe MD [address] [place] [address] 11423 Surgery 03/17/23 Joesph Crowe MD [address] [place] [address] 13881 Assigned Surgical Provider 04/03/23 09/30/24 Adonay Haq MD [address] [place] [address] 523905 Internal Medicine 06/14/23OctoberDenilson MD [address] [facility] [address] [place], [place] 326985 Assigned Heart and Vascular Provider 05/29/23 11/28/24 Jason Alvares MD 420 [facility] [address] [place], [place] 302315 Assigned Neuroscience Provider 05/15/23 11/28/24 Ruth Riddle DPM, Podiatry/Foot and Ankle Surgery [address] [place] [address] Assigned Musculoskeletal Provider 10/22/23 Jignesh Mathias MD [address] [place] [address] 35374 Gastroenterology 09/25/24 Adonay Haq MD [address] [place] [address] 146615 Assigned PCP 10/01/24 12/28/24 Omar Carmona MD [address] [place] [address] 918255 Assigned PCP 12/29/24 Jason Alvares MD [address] [place] [address] 312805 Assigned Neuroscience Provider 12/29/24 Jignesh Mathias MD [address] [place] [address] 723005 Assigned Surgical Provider 12/29/24 Ayad Lopez, PhD LP [address] [place] [address] 367925 Assigned Behavioral Health Provider 02/28/25 Gavi Nieto, PA-C [address] [place] [address] 716355 Physician Physics Technical Officer Dermatology 03/19/25 documented as of this encounter
--- OUTSIDE RECORDS SUMMARY | 2025-06-08 22:53 | XMS_ITS | Encounter Summary ---
Author Organization [employer] Address [address] [place] [address] Care Team Providers Care Superintendent Stations Name Role Phone Rio Jaquez MD Primary Care Provider + [phone] Barry Kilpatrick MD Unavailable Michelle Henderson RN Unavailable +[phone] Rio Jaquez MD Unavailable +[phone] Jemima Jaramillo MD Unavailable Unavai Kelley Bautista RN Unavailable +[phone] Sydnee Saleem MD Unavailable +[phone] Karlene Moya MD Unavailable +[phone] Wilbert Quintero OD Unavailable +[phone] Rod GauhtierM Unavailable +[phone] Nallely Hogue RN Unavailable Unavailable Larisa Vargas RN Unavailable Unavailable Jan Mahmood MD Unavailable +[phone] Brandt Quintana MD Unavailable +[phone] Jan Mahmood MD Unavailable +[phone] Rio Jaquez MD Unavailable +[phone] Dom Eason MD Unavailable +[phone] Jayla Plaza RN Unavailable +[phone] Sydnee [...] Unavailable +[phone] Dom Eason MD Unavailable +[phone] Wagner Oliver MD Unavailable +[phone] Laura Epp[place] NP Unavailable +[phone] Thom Taveras MD Unavailable +[phone] Joesph Crowe MD Unavailable +[phone] Joesph Crowe MD Unavailable + [phone] Adonay Haq MD Unavailable +[phone] Denilson Srinivasan MD Unavailable + [phone] Jason Alvares MD Unavailable Ruth Riddle DPM, Podiatry /Foot and Ankle Surgery Unavailable Omar Carmona MD Primary Care Provider +[phone] Jignesh Mathias MD Unavailable Adonay Haq MD Unavailable Omar Carmona MD Unavailable +[phone] Jason Alvares MD Unavailable Jignesh Mathias MD Unavailable Ayad Lopez PhD LP Unavailable +[phone] Gavi Nieto PA-C Unavailable +[phone] Encounter Details Date Type Department Care Team (Late st Contact Info) Description 02/04/2022 [facility] Medical Advice [facility] [address] 4th [place] [address] Rio Jaquez MD [address] [place] [address] 4 [place] [address] Social History Tobacco Use Types [...] 2 08/27/2021 [facility] - Occupational Stress Questionnaire Answer [...] Assigned at Female 09/12/2020 12:05 PM MEDICAL IMAGING TECH Legal Sex Female 3:26 AM MEDICAL IMAGING TECH Gender Identity Female 09/12/2020 12:05 PM MEDICAL IMAGING TECH Sexual Orientation Straight 12/19/2021 10 :44 [...] Contact Info) Description 06/13/2025 6:00 PM MEDICAL IMAGING TECH Ancillary Procedure [facility] Clinic [address] [phone] Omar Carmona MD [address] [place] [address] 44269 06/14/2025 4:00 PM MEDICAL IMAGING TECH Office Visit [facility] [address]th [place] [phone] Omar Carmona MD [address] [place] [address] 19473 06/15/2025 12:45 PM MEDICAL IMAGING TECH Therapy Visit [facility] [address] [phone] Jason Alvares MD [address] [place] [address] 992225 Chaya Castillo OTR [facility] 150 [facility] [place] [address] 06/19/2025 10:30 AM MEDICAL IMAGING TECH Virtual Visit [facility] [address] [place] [address] 4th [place] [phone] Omar Carmona MD [address] [place] [address] 693645 Gerson Santos RPH 06/26/2025 11:00 AM MEDICAL IMAGING TECH Therapy Visit [facility] 150 [place] [phone] Jason Alvares MD [address] [place] [address] Chaya Castillo OTR [facility] 150 [place] [address] 07/09/2025 12:45 PM MEDICAL IMAGING TECH Therapy Visit [facility] 150 [place] [phone] Jasno Alvares MD [address] [place] [address] Chaya Castillo OTR [facility] 150 [place] [address] 07/18/2025 3:00 PM MEDICAL IMAGING TECH Office Visit [facility] [address] [phone] Adonay Chapman APRN [employer] 500 [place] [address] 11/05/2025 12:30 PM CDT Lab [facility] [address] [place] [phone] 11/05/2025 1:45 PM CDT Office Visit [facility] [address]rd [place] [phone] Gavi Nieto PA-C Dermatology [address] [place] [address] [phone] 11/20/2025 10:30 AM CDT Virtual Visit [address] [phone] Marquise Hnaley MD [address] [place] [address] 04057 documented as of this encounter Goals Goal [...] Total Score: 5 08/27/19 22 9:25 AM MEDICAL IMAGING TECH documented as of this encounter Care Teams Superintendent Stations Relationship Specialty Start Date End Date Rio Jaquez MD [address] [place] [address] 4 [place] [address] PCP - General Family Practice 12/02/10 07/13/24 Omar Carmona MD 9 [place], [place] 313265 PCP - General Family Medicine 07/14/24 Barry Kilpatrick MD [address] [place] [address] [id number] [place], [place] 276245 Neurology 07/19/14 Michelle Henderson I, RN Nurse Coordinator Neurology 07/19/14 Rio Jaquez MD [address] [place] [address] 4 [place], [place] 798055 Family Practice 10/15/14 Jemima Jaramillo MD dye colorist dyer 11/20/14 Kelley Chin, [facility] [address] [place] [address] 559755 Nurse Coordinator Cardiology 11/04/15 Sydnee Saleem MD [address] [place] [address] 508 [place], [place] 036145 Cardiology 11/04/15 Karlene Moya MD [address] [place] [address] 161765 Ophthalmology 06/24/17 Wilbert Quintero, OD [address] [place] [address]455 Optometry 06/24/17 Rod Gauthier DPM [address] [place] [address] 465965 Rn Dialysis Primary Podiatric Medicine 06/21/18 Nallely Hogue, RN Registered Nurse 02/20/19 11/23/22 Larisa Vargas, TANIA Specialty Administration Internship Cardiology 04/18/19 03/06/22 Jan Mahmood MD 516 [facility] [address] [place] [address] Gastroenterology 11/05/20 Brandt Quintana MD 1414 [place] [address] Resident 11/05/20 Jan Mahmood MD 516 [facility] 2A [place] [address] Assigned Gastroenterology Provider 12/01/20 Rio Jaquez MD 909 [facility] 4 [place], [place] 812655 Assigned PCP 11/17/20 09/30/24 Dom Eason MD 717 [facility] 353 [place], [place] 912874 Internal Medicine 12/02/20 Jayla Plaza, RN Specialty Administration Internship Hepatology 01/09/21 02/13/24 Sydnee Saleem MD [address] [place] [address] 7[address]30 Assigned Heart and Vascular Provider 02/02/21 07/24/22 Cristian Barragan MD 2945 [place] [address] Assigned Infectious Disease Provider 02/21/21 03/06/22 Jaimie Vernon, RN Specialty Administration Internship Cardiology 10/28/21 Ruth Riddle DPM, Podiatry/Foot and Ankle Surgery [address] [place] [address] Assigned Musculoskeletal Provider 11/30/21 09/30/23 Jason Alvares MD [address] [place] [address] 87049 Assigned Neuroscience Provider 01/03/22 05/15/22 Marquise Hanley MD [address] [place] [address] 22029 Endocrinology, Diabetes, and Metabolism 03/05/22 Vlad Ramey MD [address] [place] [address] 69107 Cardiovascular Disease 05/07/22 Joesph Crowe MD [address] [place] [address] 14887 Surgery 05/07/22 Luis Arrington MD [address] [place] [address] 69890 Assigned Neuroscience Provider 05/16/22 05/14/23 Michelle Padilla RN Specialty Administration Internship Cardiology 07/03/22 Vlad Ramey MD [address] [place] [address] 40726 Assigned Heart and Vascular Provider 07/25/22 05/28/23 Marquise Hanley MD [address] [place] [address] 81677 Assigned Endocrinology Provider 08/15/22 Dom Eason MD 717 [facility] [address] [place] [address] Assigned Nephrology Provider 11/28/22 02/19/23 Wagner Oliver MD [address] [place] [address] Critical Care 12/15/22 Laura Epperson NP 7 [facility] [address] [place] [address] Assigned Nephrology Provider 02/20/23 08/30/24 Thom Taveras MD [address] [place] [address], R105 [place] [address] Assigned Cancer Care Provider 02/06/23 08/20/23 Joesph Crowe MD [address] [place] [address] 63725 Surgery 03/17/23 Joesph Crowe MD [address] [place] [address] 00284 Assigned Surgical Provider 04/03/23 09/30/24 Adonay Haq MD [address] [place] [address] 74742 Internal Medicine 06/14/23OctoberDenilson MD [address] [place] [address] Assigned Heart and Vascular Provider 05/29/23 11/28/24 Jason Alvares MD [address] [place] [address] 69536 Assigned Neuroscience Provider 05/15/23 11/28/24 Ruth Riddle DPM, Podiatry/Foot and Ankle Surgery [address] [place] [address] Assigned Musculoskeletal Provider 10/22/23 Jignesh Mathias MD [address] [place] [address] 91850 Gastroenterology 09/25/24 Adonay Haq MD [address] [place] [address] 51056 Assigned PCP 10/01/24 12/28/24 Omar Carmona MD [address] [place] [address] 96484 Assigned PCP 12/29/24 Jaosn Alvares MD [address] [place] [address] 395245 Assigned Neuroscience Provider 12/29/24 Jignesh Mathias MD [address] [place] [address] 06239 Assigned Surgical Provider 12/29/24 Ayad Lopez, PhD LP [address] [place] [address] 17463 Assigned Behavioral Health Provider 02/28/25 Gavi Nieto PA-C [address] [place] [address] [phone] Physician Salvage Diver Dermatology 03/19/25 documented as of this encounter
--- OUTSIDE RECORDS SUMMARY | 2025-06-08 22:53 | XMS_ITS | Encounter Summary ---
Author Organization [facility] Address [address] [place] [address] 31104 Care Team Providers Care Diesel Automotive Technician Name Role Phone Rio Jaquez MD Primary Care Provider + [phone] Barry Kilpatrick MD Unavailable Michelle Henderson RN Unavailable +[phone] Rio Jaquez MD Unavailable +[phone] Jemima Jaramillo MD Unavailable Unavai Kelley Bautista RN Unavailable +[phone] Sydnee Saleem MD Unavailable +[phone] Karlene Moya MD Unavailable +[phone] Wilbert Quintero OD Unavailable +[phone] Rod Gauthier DPM Unavailable +[phone] Nallely Hogue RN Unavailable Unavailable Jan Mahmood MD Unavailable +[phone] Brandt Quintana MD Unavailable +[phone] Jan Mahmood MD Unavailable +[phone] Rio Jaquez MD Unavailable +[phone] Dom Eason MD Unavailable +[phone] Jayla Plaza RN Unavailable +[phone] Sydnee [...] Unavailable +[phone] Dom Eason MD Unavailable +[phone] Wagner Oliver MD Unavailable +[phone] Laura Epperson NP Unavailable +-[phone] Thom Taveras MD Unavailable +[phone] Joesph Crowe MD Unavailable + [phone] Joesph Crowe MD Unavailable + [phone] Adonay Haq MD Unavailable +1- Denilson Srinivasan MD Unavailable + [phone] Jason Alvares MD Unavailable Ruth Riddle DPM, Podiatry /Foot and Ankle Surgery Unavailable Omar Carmona MD Primary Care Provider +1- Jignesh Mathias MD Unavailable Adonay Haq MD Unavailable +1- Omar Carmona MD Unavailable +[phone] Jason Alvares MD Unavailable Jignesh Mathias MD Unavailable Ayad Lopez PhD Unavailable +[phone] Gavi Nieto-C Unavailable +[phone] Encounter Details Date Type Department Care Team (Late st Contact Info) Description 04/08/2022 MyC Medical Advice [facility] Hepatology Clinic [address] [address] Jayla Plaza RN Social History [...] than three times a week 08/27/2021 Attends Jewish Services Not on file 08/27 Do you [...] Answer Date Recorded PHQ-2 Score 1 02/16/2022 [facility]at [facility] Health - Occupational [...] Sex Assigned at Female 09/12/2020 12:05 PM BUYER PLANNER Legal Sex Female 3:26 AM BUYER PLANNER Gender Identity Female 09/12/2020 12:05 PM BUYER PLANNER Sexual Orientation Straight 12/19/2021 10 :44 [...] st Contact Info) Description 06/13/2025 6:00 PM BUYER PLANNER Ancillary Procedure [facility] Imaging Center CT Clinic [address] [phone] Omar Carmona MD [address] [place] [address] [phone] 06/14/2025 4:00 PM BUYER PLANNER Office Visit [facility] Primary Care Clinic [address] 4th [place] [phone] Omar Carmona MD [address] [place] [address] 846125 06/15/2025 12:45 PM BUYER PLANNER Therapy Visit [facility] Rehabilitation Services [address] [phone] Jason Alvares MD [address] [place] [address] 295 [place], [place] [phone] Chaya Castillo OTR [facility] 150 [place] [address] 06/19/2025 10:30 AM BUYER PLANNER Virtual Visit [facility] Primary Care Clinic [address] [place] [address] 4th [place] [phone] Omar Carmona MD [address] [place] [address] 732655 Gerson Santos [facility] 06/26/2025 11:00 AM BUYER PLANNER Therapy Visit [address] [phone] Jason Alvares MD [address] [place] [address] 306645 Chaya Castillo OTR [facility] 150 [place] [address] 07/09/2025 12:45 PM BUYER PLANNER Therapy Visit [address] [phone] Jason Alvares MD [address] [place] [address] [phone] [facility] 150 [place] [address] 07/18/2025 3:00 PM BUYER PLANNER Office Visit [facility] Heart Clinic [address] [phone] Adonay Chapman APRN [address] 238765 11/05/2025 12:30 PM CDT Lab [facility] Lab [address] 1st [place] [phone] 11/05/2025 1:45 PM CDT Office Visit [facility] Dermatology Clinic [address] 3rd [place] [phone] Gavi Nieto PA-C Dermatology [address] [place] [address] 11/20/2025 10:30 AM CDT Virtual Visit [address] [address] Marquise Hanley MD [address] [place] [address] 20486 documented as of this encounter Goals Goal [...] documented as of this encounter Care Teams Diesel Automotive Technician Relationship Specialty Start Date End Date Rio Jaquez MD [address] [place] [address] 37584 PCP - General Family Practice 12/02/10 07/13/24 Omar Carmona MD [address] [place] [address] 57872 PCP - General Family Medicine 07/14/24 Barry Kilpatrick MD [address] [place] [address] [id number] [place] [address] Neurology 07/19/14 Michelle Henderson I, RN Nurse Coordinator Neurology 07/19/14 Rio Jaquez MD [address] [place] [address] 4 [place], [place] 213575 Family Practice 10/15/14 Jemima Jaramillo MD alcohol rubber 11/20/14 Kelley Chin RN [address] 249205 Nurse Coordinator Cardiology 11/04/15 Sydnee Saleem MD [address] [place] [address] 508 [place], [place] 737135 Cardiology 11/04/15 Karlene Moya MD [address] [place] [address] [phone] Ophthalmology 06/24/17 Wilbert Quintero, OD [address] [place] [address] 478185 Optometry 06/24/17 Rod Gauthier DPM [address] [place] [address] [phone] Aquaculture Director Primary Podiatric Medicine 06/21/18 Nallely Hogue, RN Registered Nurse 02/20/19 11/23/22 Jan Mahmood MD [address] [facility] [place] [address] Gastroenterology 11/05/20 Brandt Quintana MD 1414 [place] [address] Resident 11/05/20 Jan Mahmood MD [address] [facility] [address] [place] [address] Assigned Gastroenterology Provider 12/01/20 Rio Jaquez MD 909 [facility] 4 [place] [address] Assigned PCP 11/17/20 09/30/24 Dom Eason MD [address] [place] [address] 353 [place] [address] Internal Medicine 12/02/20 Jayla Plaza, RN Specialty Furniture Removalist'S Assistant Hepatology 01/09/21 02/13/24 Sydnee Saleem MD 6550 [facility] [address] [place] [address] [phone] Assigned Heart and Vascular Provider 02/02/21 07/24/22 Jaimie Vernon, TANIA Specialty Furniture Removalist'S Assistant Cardiology 10/28/21 Ruth Riddle DPM, Podiatry/Foot and Ankle Surgery [address] [facility] MICHAEL [address] [place] [address] Assigned Musculoskeletal Provider 11/30/21 09/30/23 Jason Alvares MD [address] [place] [address] 61026 Assigned Neuroscience Provider 01/03/22 05/15/22 Marquise Hanley MD [address] [place] [address] 21189 Endocrinology, Diabetes, and Metabolism 03/05/22 Vlad Ramey MD [address] [place] [address] 91187 Cardiovascular Disease 05/07/22 Joesph Crowe MD [address] [place] [address] 81052 Surgery 05/07/22 Luis Arrington MD [address] [place] [address] 26681 Assigned Neuroscience Provider 05/16/22 05/14/23 Michelle Padilla RN Specialty Furniture Removalist'S Assistant Cardiology 07/03/22 Vlad Ramey MD [address] [place] [address] 24647 Assigned Heart and Vascular Provider 07/25/22 05/28/23 Marquise Hanley MD [address] [place] [address] 60217 Assigned Endocrinology Provider 08/15/22 Dom Eason MD [address] [place] [address] 56422 Assigned Nephrology Provider 11/28/22 02/19/23 Wagner Oliver MD [address] [place] [address] Critical Care 12/15/22 Laura Epperson NP 717 [facility] [address] [place] [address] Assigned Nephrology Provider 02/20/23 08/30/24 Thom Taveras MD [address] [place], [place] 414314 Assigned Cancer Care Provider 02/06/23 08/20/23 Joesph Crowe MD 909 [place], [place] [phone] Surgery 03/17/23 Joesph Crowe MD 909 [place], [place] 205545 Assigned Surgical Provider 04/03/23 09/30/24 Adonay Haq MD 909 [place] [address] Internal Medicine 06/14/23OctoberDenilson MD [address] [place] [address] Assigned Heart and Vascular Provider 05/29/23 11/28/24 Jason Alvares MD 420 [facility] 295 [place] [address] Assigned Neuroscience Provider 05/15/23 11/28/24 Ruth Riddle DPM, Podiatry/Foot and Ankle Surgery [address] [place] [address] Assigned Musculoskeletal Provider 10/22/23 Jignesh Mathias MD [address] [place] [address] [phone] Gastroenterology 09/25/24 Adonay Haq MD [address] [place] [address] [phone] Assigned PCP 10/01/24 12/28/24 Omar Carmona MD [address] [place] [address] 260215 Assigned PCP 12/29/24 Jason Alvares MD [address] [place] [address] [phone] Assigned Neuroscience Provider 12/29/24 Jignesh Mathias MD [address] [place] [address] 04618 Assigned Surgical Provider 12/29/24 Ayad Lopez, PhD LP [address] [place] [address] [phone] Assigned Behavioral Health Provider 02/28/25 Gavi Nieto, PA-C [address] [place] [address] 71658 Physician Boat Puller Dermatology 03/19/25 documented as of this encounter
--- OUTSIDE RECORDS SUMMARY | 2025-06-08 22:53 | XMS_ITS | Encounter Summary ---
Author Organization [facility] Address [address] [place] [address] 56260 Care Team Providers Care Fresco Artist Name Role Phone Rio Jaquez MD Primary Care Provider + [phone] Barry Kilpatrick MD Unavailable Michelle Henderson RN Unavailable [phone] Rio Jaquez MD Unavailable +[phone] Jemima Jaramillo MD Unavailable Unavai Kelley Bautista RN Unavailable +[phone] Sydnee Saleem MD Unavailable +[phone] Karlene Moya MD Unavailable +[phone] Wilbert Quintero OD Unavailable +[phone] Rod Gauthier DPM Unavailable +[phone] Nallely Hogue RN Unavailable Unavailable Jan Mahmood MD Unavailable +[phone] Brandt Quintana MD Unavailable +[phone] Jan Mahmood MD Unavailable +[phone] Rio Jaquez MD Unavailable +[phone] Dom Eason MD Unavailable +[phone] Jayla Plaza RN Unavailable +[phone] Sydnee [...] Unavailable +[phone] Dom Eason MD Unavailable +[phone] Wagner Oliver MD Unavailable +[phone] ZeenatLaura rodriguez NP Unavailable +[phone] Thom Taveras MD Unavailable +[phone] Joesph Crowe MD Unavailable +[phone] Joesph Crowe MD Unavailable + [phone] Adonay Haq MD Unavailable +[phone] Denilson Srinivasan MD Unavailable + [phone] [facility] Un[facility] Ruth Riddle DPM, Podiatry /Foot and Ankle Surgery Unavailable Omar Carmona MD Primary Care Provider +[phone] Jignesh Mathias MD Unavailable Adonay Haq MD Unavailable +1- Omar Carmona MD Unavailable [phone] Jason Alvares MD Unavailable Jignesh Mathias MD Unavailable Ayad Lopez PhD LP Unavailable +[phone] Gavi Nieto PA-C Unavailable +[phone] Encounter Details Date Type Department Care Team (Late st Contact Info) Description 07/09/2022 MyC Medical Advice [facility] Heart [address] [phone] Vlad Ramey MD [address] [place] [address] Social History Tobacco Use Types Packs/Day [...] Answer Date Recorded PHQ-2 Score 1 06/17/2022 [facility] of Occupat ional Health [...] Sex Assigned at Female 09/12/2020 12:05 PM WORKERS COMPENSATION ADMINISTRATOR Legal Sex Female 3:26 AM WORKERS COMPENSATION ADMINISTRATOR Gender Identity Female 09/12/2020 12:05 PM WORKERS COMPENSATION ADMINISTRATOR Sexual Orientation Straight 12/19/2021 10 :44 AM [...] Coronavirus/COVID-19? No / Unsure 06/29/2022 12:47 PM WORKERS COMPENSATION ADMINISTRATOR documented as of this encounter Plan of Treatment Upcoming Encounters Date Type Department Care Team (Late st Contact Info) Description 06/13/2025 6:00 PM WORKERS COMPENSATION ADMINISTRATOR Ancillary Procedure [facility] Imaging Center CT Clinic [address] [phone] Omar Carmona MD [address] [place] [address] [phone] 06/14/2025 4:00 PM WORKERS COMPENSATION ADMINISTRATOR Office Visit [facility] Primary Care Clinic [address] 4th [place] [phone] Omar Carmona MD [address] [place] [address] [phone] 06/15/2025 12:45 PM WORKERS COMPENSATION ADMINISTRATOR Therapy Visit [facility] Rehabilitation Services [address] [phone] Jason Alvares MD [address] [place] [address] 295 [place], [place] [phone] Chaya Castillo OTR [facility] 150 [place] [address] 06/19/2025 10:30 AM WORKERS COMPENSATION ADMINISTRATOR Virtual Visit [facility] Primary Care Clinic [address] [place] [address] 4th [place] [phone] Omar Carmona MD [address] [place] [address] [phone] Gerson Santos [facility] 06/26/2025 11:00 AM WORKERS COMPENSATION ADMINISTRATOR Therapy Visit [address] [phone] Jason Alvares MD [address] [place] [address] 198895 Chaya Castillo OTR [facility] 150 [place] [address] 07/09/2025 12:45 PM WORKERS COMPENSATION ADMINISTRATOR Therapy Visit [address] [phone] Jason Alvares MD [address] [place] [address] 945755 Chaya Castillo [facility] 150 [place] [address] 07/18/2025 3:00 PM WORKERS COMPENSATION ADMINISTRATOR Office Visit [facility] Heart Clinic [address] [phone] Adonay Chapman APRN [address] 850135 11/05/2025 12:30 PM CDT Lab [facility] Lab [address] [place] [phone] 11/05/2025 1:45 PM CDT Office Visit [facility] Dermatology Clinic [address] 3rd [place] [phone] Gavi Nieto PA-C Dermatology [address] [place] [address] 15207 11/20/2025 10:30 AM CDT Virtual Visit [address] [place] [address] Marquise Hanley MD [address] [place] [address] 26723 documented as of this encounter Goals Goal [...] documented as of this encounter Care Teams Fresco Artist Relationship Specialty Start Date End Date Rio Jaquez MD [address] [place] [address] 36546 PCP - General Family Practice 12/02/10 07/13/24 Omar Carmona MD [address] [place] [address] 19836 PCP - General Family Medicine 07/14/24 Barry Kilpatrick MD [address] [place] [address] [id number] [place] [address] Neurology 07/19/14 Michelle Henderson I, RN Nurse Coordinator Neurology 07/19/14 Rio Jaquez MD [address] [place] [address] 4 [place], [place] 262915 Family Practice 10/15/14 Jemima Jaramillo MD money counter 11/20/14 Kelley Chin RN [address] [phone] Nurse Coordinator Cardiology 11/04/15 Sydnee Saleem MD [address] [place] [address] 508 [place], [place] 095135 Cardiology 11/04/15 Karlene Moya MD [address] [place] [address] 669625 Ophthalmology 06/24/17 Wilbert Quintero, OD [address] [place] [address] 131665 Optometry 06/24/17 Rod Gauthier DPM [address] [place] [address] 085895 Logistics Analytics Manager Primary Podiatric Medicine 06/21/18 Nallely Hogue, RN Registered Nurse 02/20/19 11/23/22 Jan Mahmood MD 516 [facility] 2A [place] [address] Gastroenterology 11/05/20 Brandt Quintana MD [facility]4 [place] [address] Resident 11/05/20 Jan Mahmood MD 6 [facility] 2A [place] [address] Assigned Gastroenterology Provider 12/01/20 Rio Jaquez MD 909 [facility] 4 [place] [address] Assigned PCP 11/17/20 09/30/24 Dom Eason MD [address] [place] [address] 353 [place] [address] Internal Medicine 12/02/20 Jayla Plaza, RN Specialty Packing Supervisor Hepatology 01/09/21 02/13/24 Sydnee Saleem MD 6550 [facility] [address] [place] [address] [phone] Assigned Heart and Vascular Provider 02/02/21 07/24/22 Jaimie Vernon, TANIA Specialty Packing Supervisor Cardiology 10/28/21 Ruth Riddle, DPM, Podiatry/Foot and Ankle Surgery [address] [place] [address] Assigned Musculoskeletal Provider 11/30/21 09/30/23 Marquise Hanley MD [address] [place] [address] 7[address] Endocrinology, Diabetes, and Metabolism 03/05/22 Vlad Ramey MD [address] [place] [address] 75076 Cardiovascular Disease 05/07/22 Joesph Crowe MD [address] [place] [address] 95223 Surgery 05/07/22 Luis Arrington MD [address] [place] [address] 78169 Assigned Neuroscience Provider 05/16/22 05/14/23 Michelle Padilla RN Specialty Packing Supervisor Cardiology 07/03/22 Vlad Ramey MD [address] [place] [address] 70728 Assigned Heart and Vascular Provider 07/25/22 05/28/23 Marquise Hanley MD [address] [place] [address] 80490 Assigned Endocrinology Provider 08/15/22 Dom Eason MD [address] [place] [address] 11512 Assigned Nephrology Provider 11/28/22 02/19/23 Wagner Oliver MD [address] [place] [address] Critical Care 12/15/22 Laura Epperson NP 717 [facility] 1932 [place] [address] Assigned Nephrology Provider 02/20/23 08/30/24 Thom Taveras MD [address] [place] [address] Assigned Cancer Care Provider 02/06/23 08/20/23 Joesph Crowe MD 909 [place] [address] MD Surgery 03/17/23 Joesph Crowe MD 9 [place] [address] Assigned Surgical Provider 04/03/23 09/30/24 Adonay Haq MD 9 [place], [place] 127385 Internal Medicine 06/14/23 Denilson Srinivasan MD [address] [facility] [address] [place] [address] Assigned Heart and Vascular Provider 05/29/23 11/28/24 Jason Alvares MD 420 [facility] 295 [place], [place] 922845 Assigned Neuroscience Provider 05/15/23 11/28/24 Ruth Riddle DPM, Podiatry/Foot and Ankle Surgery [address] [place], [place] 452547 Assigned Musculoskeletal Provider 10/22/23 Jignesh Mathias MD [address] [place] [address] 017255 Gastroenterology 09/25/24 Adonay Haq MD [address] [place] [address] [phone] Assigned PCP 10/01/24 12/28/24 Omar Carmona MD [address] [place] [address] 479555 Assigned PCP 12/29/24 Jason Alvares MD [address] [place] [address] [phone] Assigned Neuroscience Provider 12/29/24 Jignesh Mathias MD [address] [place] [address] 063515 Assigned Surgical Provider 12/29/24 Ayad Lopez, PhD LP [address] [place] [address] [phone] Assigned Behavioral Health Provider 02/28/25 Gavi Nieto PANavinC [address] [place] [address] 654355 Physician Process Worker Dermatology 03/19/25 documented as of this encounter
--- OUTSIDE RECORDS SUMMARY | 2025-06-08 22:53 | XMS_ITS | Encounter Summary ---
Author Organization [facility] Address [address] [place] [address] 45323 Care Team Providers Care Pinking Machine Operator Name Role Phone Rio Jaquez MD Primary Care Provider + [phone] Barry Kilpatrick MD Unavailable Michelle Henderson RN Unavailable +[phone] Rio Jaquez MD Unavailable +[phone] Jemima Jaramillo MD Unavailable Unavai Kelley Bautista RN Unavailable +[phone] Sydnee Saleem MD Unavailable +[phone] Karlene Moya MD Unavailable +[phone] Wilbert Quintero OD Unavailable +[phone] Rod Gauthier DPM Unavailable +[phone] Nallely Hogue RN Unavailable Unavailable Jan Mahmood MD Unavailable +[phone] Brandt Quintana MD Unavailable +[phone] Jan Mahmood MD Unavailable +[phone] Rio Jaquez MD Unavailable +[phone] Dom Eason MD Unavailable +[phone] Jayla Plaza RN Unavailable +[phone] Sydnee [...] Unavailable +[phone] Dom Eason MD Unavailable +[phone] Wagner Oliver MD Unavailable +[phone] Laura Epperson NP Unavailable +[phone] Thom Taveras MD Unavailable +[phone] Joesph Crowe MD Unavailable + [phone] Joesph Crowe MD Unavailable + [phone] Adonay Haq MD Unavailable +[phone] Denilson Srinivasan MD Unavailable + [phone] Jason Alvares MD Unavailable Ruth Riddle DPM, Podiatry /Foot and Ankle Surgery Unavailable Omar Carmona MD Primary Care Provider +1- Jignesh Mathias MD Unavailable Adonay Haq MD Unavailable +1- Omar Carmona MD Unavailable +[phone] Jason Alvares MD Unavailable Jignesh Mathias MD Unavailable Ayad Lopez PhD LP Unavailable +[phone] Gavi Nieto-C Unavailable +[phone] Encounter Details Date Type Department Care Team (Late st Contact Info) Description 05/12/2022 MyC Medical Advice [facility] Hepatology Clinic [address] [address] Jan Mahmood MD [address] [place] [address] [address] [place] [address] Social History Tobacco Use Types [...] Answer Date Recorded PHQ-2 Score 1 05/07/2022 [facility] of Occupat ional [facility] - Occupational Stress Questionnaire Answer [...] Sex Assigned at Female 09/12/2020 12:05 PM OPERATING ROOM ASSISTANT Legal Sex Female 3:26 AM OPERATING ROOM ASSISTANT Gender Identity Female 09/12/2020 12:05 PM OPERATING ROOM ASSISTANT Sexual Orientation Straight 12/19/2021 10 :44 [...] st Contact Info) Description 06/13/2025 6:00 PM OPERATING ROOM ASSISTANT Ancillary Procedure [facility] Imaging Center CT Clinic [address] [place] [address] Omar Carmona MD [address] [place] [address] 553655 06/14/2025 4:00 PM OPERATING ROOM ASSISTANT Office Visit [facility] Primary Care Clinic [address] [place] [address] Omar Carmona MD [address] [place] [address] 519565 06/15/2025 12:45 PM OPERATING ROOM ASSISTANT Therapy Visit [facility] Rehabilitation Services [address] [phone] Jason Alvares MD [address] [place] [address] [facility] [address] [place] [address] 06/19/2025 10:30 AM OPERATING ROOM ASSISTANT Virtual Visit [facility] Primary Care Clinic [address] [place] [address] 4th [place] [phone] Omar Carmona MD [address] [place] [address] 864475 Gerson Santos, [facility] 06/26/2025 11:00 AM OPERATING ROOM ASSISTANT Therapy Visit [address] [phone] Jason Alvares MD [address] [place] [address] 644625 Chaya Castillo [facility]TR [facility] [address] [place] [address] 07/09/2025 12:45 PM OPERATING ROOM ASSISTANT Therapy Visit [facility] 150 [place] [phone] Jason Alvares MD [address] [place] [address] 620725 Chaya Castillo [facility] [address] [place] [address] 07/18/2025 3:00 PM OPERATING ROOM ASSISTANT Office Visit [facility] Heart Clinic [address] [phone] Adonay Chapman APRN [address] 416355 11/05/2025 12:30 PM CDT Lab [facility] Lab [address] 1st [place] [phone] 11/05/2025 1:45 PM CDT Office Visit [facility] Dermatology Clinic [address] 3rd [place] [phone] Gavi Nieto PA-C Dermatology [address] [place] [address] 11/20/2025 10:30 AM CDT Virtual Visit [address] [phone] Marquise Hanley MD [address] [place] [address] 924835 documented as of this encounter Goals Goal [...] documented as of this encounter Care Teams Pinking Machine Operator Relationship Specialty Start Date End Date Rio Jaquez MD [address] [place] [address] 29425 PCP - General Family Practice 12/02/10 07/13/24 Omar Carmona MD [address] [place] [address] 64150 PCP - General Family Medicine 07/14/24 Barry Kilpatrick MD [address] [place] [address] [id number] [place], [place] 869745 Neurology 07/19/14 Michelle Henderson RN Nurse Coordinator Neurology 07/19/14 Rio Jaquez MD [address] [place] [address] FL 4 [place], [place] 792905 Family Practice 10/15/14 Jemima Jaramillo MD inside sales lead 11/20/14 Kelley Chin RN [address] [phone] Nurse Coordinator Cardiology 11/04/15 Sydnee Saleem MD 420 [facility] 508 [place], [place] [phone] Cardiology 11/04/15 Karlene Moya MD [address] [place] [address] 320375 Ophthalmology 06/24/17 Wilbert Quintero, OD [address] [place] [address] 812755 Optometry 06/24/17 Rod Gauthier DPM [address] [place] [address] 871195 Crossing Tender Primary Podiatric Medicine 06/21/18 Nallely Hogue, RN Registered Nurse 7/15/19 4/17/23 Jan Mahmood MD 516 [facility] 2A [place] [address] Gastroenterology 11/05/20 Brandt Quintana MD 1414 [place] [address] Resident 11/05/20 Jan Mahmood MD 516 [facility] 2A [place] [address] Assigned Gastroenterology Provider 12/01/20 Rio Jaquez MD 909 [facility] 4 [place] [address] Assigned PCP 11/17/20 09/30/24 Dom Eason MD [address] [place] [address] 353 [place] [address] Internal Medicine 12/02/20 Jayla Plaza RN Specialty Tomato Grader Hepatology 01/09/21 02/13/24 Sydnee Saleem MD [address] [phone] Assigned Heart and Vascular Provider 02/02/21 07/24/22 Jaimie Vernon, TANIA Specialty Tomato Grader Cardiology 10/28/21 Ruth Riddle DPM, Podiatry/Foot and Ankle Surgery 7[address]12 [facility] 300 [place] [address] Assigned Musculoskeletal Provider 11/30/21 09/30/23 Jason Alvares MD [address] [place] [address] 46464 Assigned Neuroscience Provider 01/03/22 05/15/22 Marquise Hanley MD [address] [place] [address] 08166 Endocrinology, Diabetes, and Metabolism 03/05/22 Vlad Ramey MD [address] [place] [address] [phone] Cardiovascular Disease 05/07/22 Joesph Crowe MD [address] [place] [address] 83803 Surgery 05/07/22 Luis Arrington MD [address] [place] [address] 83717 Assigned Neuroscience Provider 05/16/22 05/14/23 Michelle Padilla RN Specialty Tomato Grader Cardiology 07/03/22 Vlad Ramey MD [address] [place] [address] 32163 Assigned Heart and Vascular Provider 07/25/22 05/28/23 Marquise Hanley MD [address] [place] [address] 50358 Assigned Endocrinology Provider 08/15/22 Dom Eason MD [address] [place] [address] 13922 Assigned Nephrology Provider 11/28/22 02/19/23 Wagner Oliver MD [address] [address] Critical Care 12/15/22 Laura Epperson NP 717 [facility] 1932 [place] [address] Assigned Nephrology Provider 02/20/23 08/30/24 Thom Taveras MD [address] [place] [address] R105 [place] [address] Assigned Cancer Care Provider 02/06/23 08/20/23 Joesph Crowe MD [address] [place] [address] 54688 Surgery 03/17/23 Joesph Crowe MD [address] [place] [address] 84276 Assigned Surgical Provider 04/03/23 09/30/24 Adonay Haq MD [address] [place] [address] 89335 Internal Medicine 06/14/23OctoberDenilson MD [address] [facility] [address] [place] [address] Assigned Heart and Vascular Provider 05/29/23 11/28/24 Jason Alvares MD 420 [facility] 295 [place] [address] Assigned Neuroscience Provider 05/15/23 11/28/24 Ruth Riddle DPM, Podiatry/Foot and Ankle Surgery [address] [place] [address] Assigned Musculoskeletal Provider 10/22/23 Jignesh Mathias MD [address] [place] [address] 70271 Gastroenterology 09/25/24 Adonay Haq MD [address] [place] [address]49[address] Assigned PCP 10/01/24 12/28/24 Omar Carmona MD [address] [place] [address] 94828 Assigned PCP 12/29/24 Jason Alvares MD [address] [place] [address] 73367 Assigned Neuroscience Provider 12/29/24 Jignesh Mathias MD [address] [place] [address] 95399 Assigned Surgical Provider 12/29/24 Ayad Lopez, PhD LP [address] [place] [address] 448165 Assigned Behavioral Health Provider 02/28/25 Gavi Nieto PANavinC [address] [place] [address] 643855 Physician Power Equipment Technology Instructor Dermatology 03/19/25 documented as of this encounter
--- OUTSIDE RECORDS SUMMARY | 2025-06-08 22:53 | XMS_ITS | Encounter Summary ---
Author Organization [facility] Address [address] [place] [address] 40546 Care Team Providers Care End User Support Specialist Name Role Phone Rio Jaquez MD Primary Care Provider + [phone] Barry Kilpatrick MD Unavailable Michelle Henderson RN Unavailable +[phone] Rio Jaquez MD Unavailable +[phone] Jemima Jaramillo MD Unavailable Unavai Kelley Bautista RN Unavailable +[phone] Sydnee Saleem MD Unavailable +[phone] Karlene Moya MD Unavailable +[phone] Wilbert Quintero OD Unavailable +[phone] Rod Gauthier DPM Unavailable +[phone] Nallely Hogue RN Unavailable Unavailable Jan Mahmood MD Unavailable +[phone] Brandt Quintana MD Unavailable +[phone] Jan Mahmood MD Unavailable +[phone] Rio Jaquez MD Unavailable +[phone] Dom Eason MD Unavailable +[phone] Jayla Plaza RN Unavailable +[phone] Sydnee [...] Unavailable +[phone] Dom Eason MD Unavailable +[phone] Wagner Oliver MD Unavailable +[phone] ZeenatLaura rodriguez NP Unavailable +[phone] Thom Taveras MD Unavailable +[phone] Joesph Crowe MD Unavailable +[phone] Joesph Crowe MD Unavailable + [phone] Adonay Haq MD Unavailable +[phone] Denilson Srinivasan MD Unavailable + [phone] [facility] Un[facility] Ruth Riddle DPM, Podiatry /Foot and Ankle Surgery Unavailable Omar Carmona MD Primary Care Provider +[phone] Jignesh Mathias MD Unavailable Adonay Haq MD Unavailable +1- Omar Carmona MD Unavailable Jason Alvares MD Unavailable Jignesh Mathias MD Unavailable Ayad Lopez PhD LP Unavailable +[phone] Gavi Nieto PA-C Unavailable +[phone] Encounter Details Date Type Department Care Team (Late st Contact Info) Description 06/16/2022 MyC Medical Advice [facility] Hepatology Clinic [address] [address] Jan Mahmood MD [address] [place] [address] [address] [place] [address] Social History Tobacco Use Types [...] Answer Date Recorded PHQ-2 Score 1 06/17/2022 [facility] of Occupat ional Health [...] Sex Assigned at Female 09/12/2020 12:05 PM LANDSCAPING SUPERVISOR Legal Sex Female 3:26 AM LANDSCAPING SUPERVISOR Gender Identity Female 09/12/2020 12:05 PM LANDSCAPING SUPERVISOR Sexual Orientation Straight 12/19/2021 10 :44 [...] to have Coronavirus/COVID-19? Yes 06/17/2022 8:17 AM LANDSCAPING SUPERVISOR documented as of this encounter Plan of Treatment Upcoming Encounters Date Type Department Care Team (Late st Contact Info) Description 06/13/2025 6:00 PM LANDSCAPING SUPERVISOR Ancillary Procedure [facility] Imaging Center CT Clinic [address] 1st [place] [phone] Omar Carmona MD [address] [place] [address] 024485 06/14/2025 4:00 PM LANDSCAPING SUPERVISOR Office Visit [facility] Primary Care Clinic [address] 4th [place] [phone] Omar Carmona MD [address] [place] [address]108 06/15/2025 12:45 PM LANDSCAPING SUPERVISOR Therapy Visit [facility] Rehabilitation Services [facility] 150 [place] [phone] Jason Alvares MD [address] [place] [address] 295 [place], [place] 867595 Chaya Castillo OTR [facility] 150 [place] [address] 06/19/2025 10:30 AM LANDSCAPING SUPERVISOR Virtual Visit [facility] Primary Care Clinic [address] [place] [address] 4th [place] [phone] Omar Carmona MD [address] [place] [address] [phone] Gerson Santos, [facility] 06/26/2025 11:00 AM LANDSCAPING SUPERVISOR Therapy Visit [address] [phone] Jason Alvares MD [address] [place] [address] 566765 Chaya Castillo [facility] 150 [place] [address] 07/09/2025 12:45 PM LANDSCAPING SUPERVISOR Therapy Visit [address] [phone] Jason Alvares MD [address] [place] [address] 093765 Chaya Castillo [facility] 150 [place] [address] 07/18/2025 3:00 PM LANDSCAPING SUPERVISOR Office Visit [facility] Heart Clinic [address] [phone] Adonay Chapman APRN [address] 388835 11/05/2025 12:30 PM CDT Lab [address] 1st [place] [phone] 11/05/2025 1:45 PM CDT Office Visit [facility] Dermatology Clinic [address] 3rd [place] [phone] Gavi Nieto PA-C Dermatology [address] [place] [address] 11/20/2025 10:30 AM CDT Virtual Visit [address] [phone] Marquise Hanley MD [address] [place] [address] documented as of this encounter Goals Goal [...] documented as of this encounter Care Teams End User Support Specialist Relationship Specialty Start Date End Date Rio Jaquez MD [address] [place] [address] 11778 PCP - General Family Practice 12/02/10 07/13/24 Omar Carmona MD [address] [place] [address] 77427 PCP - General Family Medicine 07/14/24 Barry Kilpatrick MD [address] [place] [address] [id number] [place] [address] Neurology 07/19/14 Michelle Henderson I, RN Nurse Coordinator Neurology 07/19/14 Rio Jaquez MD [address] [place] [address] FL 4 [place], [place] 320455 Family Practice 10/15/14 Jemima Jaramillo MD supervisor instrument maintenance 11/20/14 Kelley Chin RN [address] [address] Nurse Coordinator Cardiology 11/04/15 Sydnee Saleem MD [address] [place] [address] 508 [place], [place] 817375 Cardiology 11/04/15 Karlene Moya MD [address] [place] [address] 786295 Ophthalmology 06/24/17 Wilbert Quintero, OD [address] [place] [address] [phone] Optometry 06/24/17 Rod Gauthier DPM [address] [place] [address] [phone] Inside Sales Lead Primary Podiatric Medicine 06/21/18 Nallely Hogue, RN Registered Nurse 02/20/19 11/23/22 Jan Mahmood MD 516 [facility] 2A [place] [address] Gastroenterology 11/05/20 Brandt Quintana MD 1414 [place] [address] Resident 11/05/20 Jan Mahmood MD 6 [facility] 2A [place] [address] Assigned Gastroenterology Provider 12/01/20 Rio Jaquez MD 909 [facility] 4 [place] [address] Assigned PCP 11/17/20 09/30/24 Dom Eason MD [address] [place] [address] 353 [place] [address] Internal Medicine 12/02/20 Jayla Plaza, RN Specialty Bar Helper Hepatology 01/09/21 02/13/24 Sydnee Saleem MD [address] [place] [address] [phone] Assigned Heart and Vascular Provider 02/02/21 07/24/22 Jaimie Vernon, TANIA Specialty Bar Helper Cardiology 10/28/21 Ruth Riddle DPM, Podiatry/Foot and Ankle Surgery [address] [place] [address] Assigned Musculoskeletal Provider 11/30/21 09/30/23 Marquise Hanley MD [address] [place] [address] 36625 Endocrinology, Diabetes, and Metabolism 03/05/22 Vlad Ramey MD [address] [place] [address] 6[address]30 Cardiovascular Disease 05/07/22 Joesph Crowe MD [address] [place] [address] 28054 Surgery 05/07/22 Luis Arrington MD [address] [place] [address] 48661 Assigned Neuroscience Provider 05/16/22 05/14/23 Michelle Padilla RN Specialty Bar Helper Cardiology 07/03/22 Vlad Ramey MD [address] [place] [address] 56007 Assigned Heart and Vascular Provider 07/25/22 05/28/23 Marquise Hanley MD [address] [place] [address] 82463 Assigned Endocrinology Provider 08/15/22 Dom Eason MD [address] [place] [address]49 Assigned Nephrology Provider 11/28/22 02/19/23 Wagner Oliver MD [address] [place] [address] Critical Care 12/15/22 Laura Epperson NP 717 [facility] 1932 [place] [address] Assigned Nephrology Provider 02/20/23 08/30/24 Thom Taveras MD 25[address] [facility], R105 [place] [address] Assigned Cancer Care Provider 02/06/23 08/20/23 Joesph Crowe MD [address] [place] [address] [phone] MD Surgery 03/17/23 Joesph Crowe MD 9 [place], [place] 581745 Assigned Surgical Provider 04/03/23 09/30/24 Adonay Haq MD [address] [place] [address] 800795 Internal Medicine 06/14/23OctoberDenilson MD [address] [facility] [address] [place], [place] 692405 Assigned Heart and Vascular Provider 05/29/23 11/28/24 Jason Alvares MD 420 [facility] 295 [place], [place] 792565 Assigned Neuroscience Provider 05/15/23 11/28/24 Ruth Riddle, DPM, Podiatry/Foot and Ankle Surgery [address] [place], [place] 611077 Assigned Musculoskeletal Provider 10/22/23 Jignesh Mathias MD [address] [place] [address] 727265 Gastroenterology 09/25/24 Adonay Haq MD [address] [place] [address] 678345 Assigned PCP 10/01/24 12/28/24 Omar Carmona MD [address] [place] [address] Assigned PCP 12/29/24 Jason Alvares MD [address] [place] [address] 968205 Assigned Neuroscience Provider 12/29/24 Jignesh Mathias MD [address] [place] [address] 216955 Assigned Surgical Provider 12/29/24 Ayad Lopez, PhD LP [address] [place] [address] [phone] Assigned Behavioral Health Provider 02/28/25 Gavi Nieto PANavinC [address] [place] [address] [phone] Physician Virtual Classroom Manager Dermatology 03/19/25 documented as of this encounter
--- OUTSIDE RECORDS SUMMARY | 2025-06-08 22:53 | XMS_ITS | Encounter Summary ---
Author Organization [facility] Address [address] [place] [address]64 Care Team Providers Care Systems Applications Programming Lead Name Role Phone Rio Jaquez MD Primary Care Provider + [phone] Barry Kilpatrick MD Unavailable Michelle Henderson RN Unavailable +[phone] Rio Jaquez MD Unavailable +[phone] Jemima Jaramillo MD Unavailable Unavai Kelley Bautista RN Unavailable +[phone] Sydnee Saleem MD Unavailable +[phone] Karlene Moya MD Unavailable +[phone] Wilbert Quintero OD Unavailable +[phone] Rod Gauthier DPM Unavailable +[phone] Nallely Hogue RN Unavailable Unavailable Jan Mahmood MD Unavailable +[phone] Brandt Quintana MD Unavailable +[phone] Jan Mahmood MD Unavailable +[phone] Rio Jaquez MD Unavailable +[phone] Dom Eason MD Unavailable +[phone] Jayla Plaza RN Unavailable +[phone] Sydnee [...] Unavailable +[phone] Dom Eason MD Unavailable +[phone] Wagner Oliver MD Unavailable +[phone] ZeenatLaura rodriguez NP Unavailable +[phone] Thom Taveras MD Unavailable +[phone] Joesph Crowe MD Unavailable +[phone] Joesph Crowe MD Unavailable + [phone] Adonay Haq MD Unavailable +[phone] Denilson Srinivasan MD Unavailable + [phone] [facility] Un[facility] Ruth Riddle DPM, Podiatry /Foot and Ankle Surgery Unavailable Omar Carmona MD Primary Care Provider +[phone] Jignesh Mathias MD Unavailable Adonay Haq MD Unavailable +1- Omar Carmona MD Unavailable Jason Alvares MD Unavailable Jignesh Mathias MD Unavailable Ayad Lopez PhD LP Unavailable +[phone] Gavi Nieto PA-C Unavailable +[phone] Encounter Details Date Type Department Care Team (Late st Contact Info) Description 05/24/2022 MyC Medical Advice Initial Department [address] [place] [address] Lizbeth Lopes Social History Tobacco Use Types [...] Answer Date Recorded PHQ-2 Score 1 05/07/2022 [facility] of Occupat ional Health - Occupational Stress [...] Assigned at Female 09/12/2020 12:05 PM SENIOR WEB ENGINEER Legal Sex Female 3:26 AM SENIOR WEB ENGINEER Gender Identity Female 09/12/2020 12:05 PM SENIOR WEB ENGINEER Sexual Orientation Straight 12/19/2021 10 :44 [...] st Contact Info) Description 06/13/2025 6:00 PM SENIOR WEB ENGINEER Ancillary Procedure [facility] [address] [place] [phone] Omar Carmona MD [address] [place] [address] 323375 06/14/2025 4:00 PM SENIOR WEB ENGINEER Office Visit [facility] [address] [place] [phone] Omar Carmona MD [address] [place] [address] 088515 06/15/2025 12:45 PM SENIOR WEB ENGINEER Therapy Visit [facility] [address] [phone] Jason Alvares MD [address] [place] [address] 295 [place], [place] [address] Chaya Castillo OTR [facility] 150 [place] [address] 06/19/2025 10:30 AM SENIOR WEB ENGINEER Virtual Visit [facility] [address] [place] [address] 4th [place] [phone] Omar Carmoan MD [address] [place] [address] [phone] Gerson Santos, [facility] 06/26/2025 11:00 AM SENIOR WEB ENGINEER Therapy Visit [facility] 150 [place] [phone] Jason Alvares MD [address] [place] [address] 478825 Chaya Castillo, OTR [address] [address] 07/09/2025 12:45 PM SENIOR WEB ENGINEER Therapy Visit [facility] [address] [place] [phone] Jason Alvares MD [address] [place] [address] 172265 Chaya Castillo, OTR [address] [address] 07/18/2025 3:00 PM SENIOR WEB ENGINEER Office Visit [facility] [address] [phone] Adonay Chapman APRN [address] 508105 11/05/2025 12:30 PM CDT Lab [facility] [address] [place] [address] 11/05/2025 1:45 PM CDT Office Visit [facility] D[facility]atology [facility] [address]rd [facility] [place] [phone] Gavi Nieto PA-C Dermatology [address] [place] [address] 11/20/2025 10:30 AM CDT Virtual Visit [address] [place] [address] Marquise Hanley MD [address] [place] [address] 332975 documented as of this encounter Goals Goal [...] as of this encounter Care Teams Systems Applications Programming Lead Relationship Specialty Start Date End Date Rio Jaquez MD [address] [place] [address] [address] 4 [place] [address] PCP - General Family Practice 12/02/10 07/13/24 Omar Carmona MD [address] [place] [address] 847805 PCP - General Family Medicine 07/14/24 Barry Kilpatrick MD [address] [place] [address] FD1521ES [place] [address] Neurology 07/19/14 Michelle Henderson I, RN Nurse Coordinator Neurology 07/19/14 Rio Jaquez MD 9 [facility] 4 [place], [place] 436525 Family Practice 10/15/14 Jemima Jaramillo MD handbag designer 11/20/14 Kelley Chin, TANIA [address] 107555 Nurse Coordinator Cardiology 11/04/15 Sydnee Saleem MD 420 [facility] 508 [place], [place] 706875 Cardiology 11/04/15 Karlene Moya MD [address] [place] [address] 617205 Ophthalmology 06/24/17 Wilbert Quintero, OD [address] [place] [address] 765535 Optometry 06/24/17 Rod Gauthier DPM [address] [place] [address] [phone] Assistant Cook Primary Podiatric Medicine 06/21/18 Nallely Hogue, RN Registered Nurse 02/20/19 11/23/22 Jan Mahmood MD [address] [place] [address] [address] [place], [place] 095925 Gastroenterology 11/05/20 Brandt Quintana MD 1414 [place] [address] Resident 11/05/20 Jan Mahmood MD 516 [facility] 2A [place] [address] Assigned Gastroenterology Provider 12/01/20 Rio Jaquez MD 909 [facility] [address] 4 [place] [address] Assigned PCP 11/17/20 09/30/24 Dom Eason MD [address] [place] [address] 353 [place], [place] 676164 Internal Medicine 12/02/20 Jayla Plaza, TANIA Specialty General Pediatrician Hepatology 01/09/21 02/13/24 Sydnee Saleem MD [address] [place] [address] 7[address] Assigned Heart and Vascular Provider 02/02/21 07/24/22 Jaimie Vernon, RN Specialty General Pediatrician Cardiology 10/28/21 Ruth Riddle, DPM, Podiatry/Foot and Ankle Surgery 7[address]89 [facility] 300 [place], [place] 070307 Assigned Musculoskeletal Provider 11/30/21 09/30/23 Marquise Hanley MD [address] [place] [address] 284685 Endocrinology, Diabetes, and Metabolism 03/05/22 Vlad Ramey MD [address] [place] [address] 23200 Cardiovascular Disease 05/07/22 Joesph Crowe MD [address] [place] [address] 19602 Surgery 05/07/22 Luis Arrington MD [address] [place] [address] 88420 Assigned Neuroscience Provider 05/16/22 05/14/23 Michelle Padilla RN Specialty General Pediatrician Cardiology 07/03/22 Vlad Ramey MD [address] [place] [address] 72980 Assigned Heart and Vascular Provider 07/25/22 05/28/23 Marquise Hanley MD [address] [place] [address] 61469 Assigned Endocrinology Provider 08/15/22 Dom Eason MD 7 [facility] 353 [place] [address] Assigned Nephrology Provider 11/28/22 02/19/23 Wagner Oliver MD [address] [place] [address] Critical Care 12/15/22 Laura Epperson NP 717 [facility] 1932 [place] [address] Assigned Nephrology Provider 02/20/23 08/30/24 Thom Taveras MD [address] [place], [place] 475[address]5 [place] [address] Assigned Cancer Care Provider 02/06/23 08/20/23 Joesph Crowe MD [address] [place] [address] 84089 MD Surgery 03/17/23 Joesph Crowe MD [address] [place] [address] 89546 Assigned Surgical Provider 04/03/23 09/30/24 Adonay Haq MD [address] [place] [address] 8[address] Internal Medicine 06/14/23October, Denilson Jackson MD 6405 [facility] CLEO Black [facility] [address] [place] [address] Assigned Heart and Vascular Provider 05/29/23 11/28/24 Jason Alvares MD [address] [place] [address] 295 [place] [address] Assigned Neuroscience Provider 05/15/23 11/28/24 Ruth Riddle DPM, Podiatry/Foot and Ankle Surgery [address] [place] [place] [address] Assigned Musculoskeletal Provider 10/22/23 Jignesh Mathias MD [address] [place] [address] 73984 Gastroenterology 09/25/24 Adonay Haq MD [address] [place] [address] Assigned PCP 10/01/24 12/28/24 Omra Carmona MD [address] [place] [address] [phone] Assigned PCP 12/29/24 Jason Alvares MD [address] [place] [address] Assigned Neuroscience Provider 12/29/24 Jignesh Mathias MD [address] [place] [address] Assigned Surgical Provider 12/29/24 Ayad Lopez, PhD LP [address] [place] [address] Assigned Behavioral Health Provider 02/28/25 Gavi Nieto PA-C [address] [place] [address] 640395 Physician Server Software Engineer Dermatology 03/19/25 documented as of this encounter
--- OUTSIDE RECORDS SUMMARY | 2025-06-08 22:53 | XMS_ITS | Encounter Summary ---
Author Organization [facility] Address [address] [place] [address]197 Care Team Providers Care Book Reviewer Name Role Phone Rio Jaquez MD Primary Care Provider + [phone] Barry Kilpatrick MD Unavailable Michelle Henderson RN Unavailable +[phone] Rio Jaquez MD Unavailable +[phone] Jemima Jaramillo MD Unavailable Unavai Kelley Bautista RN Unavailable +[phone] Sydnee Saleem MD Unavailable +[phone] Karlene Moya MD Unavailable +[phone] Wilbert Quintero OD Unavailable +[phone] Rod Gauthier DPM Unavailable +[phone] Nallely Hogue RN Unavailable Unavailable Jan Mahmood MD Unavailable +[phone] Brandt Quintana MD Unavailable +[phone] Jan Mahmood MD Unavailable +[phone] Rio Jaquez MD Unavailable +[phone] Dom Eason MD Unavailable +[phone] Jayla Plaza RN Unavailable +[phone] Sydnee [...] Unavailable +[phone] Dom Eason MD Unavailable +[phone] Wagner Oliver MD Unavailable +[phone] Laura Epperson NP Unavailable +[phone] Thom Taveras MD Unavailable +[phone] Joesph Crowe MD Unavailable + [phone] Joesph Crowe MD Unavailable + [phone] Adonay Haq MD Unavailable +[phone] Denislon Srinivasan MD Unavailable + [phone] Jason Alvares MD Unavailable Ruth Riddle DPM, Podiatry /Foot and Ankle Surgery Unavailable Omar Carmona MD Primary Care Provider +1- Jignesh Mathias MD Unavailable Adonay Haq MD Unavailable +1- Omar Carmona MD Unavailable +[phone] Jason Alvares MD Unavailable Jignesh Mathias MD Unavailable Ayad Lopez PhD Unavailable +[phone] Gavi Nieto-C Unavailable +[phone] Encounter Details Date Type Department Care Team (Late st Contact Info) Description 04/24/2022 External Order Results [facility] [address] [place] [address] Outside, Provider HLD (hyperlipidemia) Social History Tobacco [...] Answer Date Recorded PHQ-2 Score 2 04/21/2022 [facility] of Occupat ional Health - Occupational Stress [...] Sex Assigned at Female 09/12/2020 12:05 PM WOOD TILE INSTALLER Legal Sex Female 3:26 AM WOOD TILE INSTALLER Gender Identity Female 09/12/2020 12:05 PM WOOD TILE INSTALLER Sexual Orientation Straight 12/19/2021 10 :44 [...] st Contact Info) Description 06/13/2025 6:00 PM WOOD TILE INSTALLER Ancillary Procedure [facility] [address] [phone] Omar Carmona MD [address] [place] [address] [phone] 06/14/2025 4:00 PM WOOD TILE INSTALLER Office Visit [facility] [address]th [place] [phone] Omar Carmona MD [address] [place] [address] [phone] 06/15/2025 12:45 PM WOOD TILE INSTALLER Therapy Visit [facility] [address] [address] Jason Alvares MD [address] [place] [address] [phone] Chaya Castillo, WESR [address] [address] 06/19/2025 10:30 AM WOOD TILE INSTALLER Virtual Visit [facility] [address] [place] [address] 4th [place] [phone] Omar Carmona MD [address] [place] [address] 567505 Gerson Santos [facility] 06/26/2025 11:00 AM WOOD TILE INSTALLER Therapy Visit [facility] 150 [place] [phone] Jason Alvares MD [address] [place] [address] Chaya Castillo OTR [facility] 150 [place] [address] 07/09/2025 12:45 PM WOOD TILE INSTALLER Therapy Visit [facility] 150 [place] [phone] Jason Alvares MD [address] [place] [address] Chaya Castillo OTR [facility] 150 [place] [address] 07/18/2025 3:00 PM WOOD TILE INSTALLER Office Visit [facility] [address] [phone] Adonay Chapman APRN [address] 721405 11/05/2025 12:30 PM CDT Lab [facility] Lab [address] [phone] 11/05/2025 1:45 PM CDT Office Visit [facility]ology [facility] [place] 909 [facility] 3rd [place] [address] Gavi Nieto PA-C Dermatology [address] [place] [address] 11/20/2025 10:30 AM CDT Virtual Visit [address] [phone] Marquise Hanley MD [address] [place] [address] 89[address] documented as of this encounter Goals Goal [...] documented as of this encounter Care Teams Book Reviewer Relationship Specialty Start Date End Date Rio Jaquez MD [address] [place] [address] 111655 PCP - General Family Practice 12/02/10 07/13/24 Omar Carmona MD [address] [place] [address] 253905 PCP - General Family Medicine 07/14/24 Barry Kilpatrick MD [address] [place] [address] [id number] [place], [place] [phone] Neurology 07/19/14 Michelle Henderson RN Nurse Coordinator Neurology 07/19/14 Rio Jaquez MD [address] [place] [address] 087645 Family Practice 10/15/14 Jemima Jaramillo MD automatic blocker 11/20/14 Kelley Chin, TANIA [address] 513555 Nurse Coordinator Cardiology 11/04/15 Sydnee Saleem MD 420 [facility] 508 [place], [place] 771115 Cardiology 11/04/15 Karlene Moya MD [address] [place] [address] 749835 Ophthalmology 06/24/17 Wilbert Quintero, OD [address] [place] [address], [place] [address] Optometry 06/24/17 Rod Gauthier DPM [address] [place] [address]133 Polysomnographic Technician Primary Podiatric Medicine 06/21/18 Nallely Hogue, TANIA Registered Nurse 02/20/19 11/23/22 Jan Mahmood MD [address] [place] [address] Gastroenterology 11/05/20 Brandt Quintana MD [facility]4 [place] [address] Resident 11/05/20 Jan Mahmood MD [address] [place] [address] Assigned Gastroenterology Provider 12/01/20 Rio Jaquez MD [address] [place] [address] 30047 Assigned PCP 11/17/20 09/30/24 Dom Eason MD [address] [place] [address] 27638 Internal Medicine 12/02/20 Jayla Plaza, RN Specialty Dramatic Reader Hepatology 01/09/21 02/13/24 Sydnee Saleem MD [address] [address] Assigned Heart and Vascular Provider 02/02/21 07/24/22 Jaimie Vernon, RN Specialty Dramatic Reader Cardiology 10/28/21 Ruth Riddle, DPM, Podiatry/Foot and Ankle Surgery [address] [place] [address] Assigned Musculoskeletal Provider 11/30/21 09/30/23 Jason Alvares MD [address] [place] [address] 745845 Assigned Neuroscience Provider 01/03/22 05/15/22 Marquise Hanley MD [address] [place] [address] 734335 Endocrinology, Diabetes, and Metabolism 03/05/22 Vlad Ramey MD [address] [place] [address] 211535 Cardiovascular Disease 05/07/22 Joesph Crowe MD [address] [place] [address] 023535 Surgery 05/07/22 Luis Arrington MD [address] [place] [address] 61873 Assigned Neuroscience Provider 05/16/22 05/14/23 Michelle Padilla RN Specialty Dramatic Reader Cardiology 07/03/22 Vlad Ramey MD [address] [place] [address] 559255 Assigned Heart and Vascular Provider 07/25/22 05/28/23 Marquise Hanley MD 9 [place] [address] Assigned Endocrinology Provider 08/15/22 Dom Eason MD 717 [facility] 353 [place] [address] Assigned Nephrology Provider 11/28/22 02/19/23 Wagner Oliver MD [address] [place] [address] Critical Care 12/15/22 Laura Epperson NP 7 [facility] 1932 [place] [address] Assigned Nephrology Provider 02/20/23 08/30/24 Thom Taveras MD [facility] [address] [place] [address] Assigned Cancer Care Provider 02/06/23 08/20/23 Joesph Crowe MD [address] [place] [address] Surgery 03/17/23 Joesph Crowe MD [address] [place] [address] 57531 Assigned Surgical Provider 04/03/23 09/30/24 Adonay Haq MD [address] [place] [address] 60819 Internal Medicine 06/14/23October, Denilson Jackson MD [address] [place] [address] Assigned Heart and Vascular Provider 05/29/23 11/28/24 Jason Alvares MD [address] 706535 Assigned Neuroscience Provider 05/15/23 11/28/24 Ruth Riddle DPM, Podiatry/Foot and Ankle Surgery [address] [place] [address] Assigned Musculoskeletal Provider 10/22/23 Jignesh Mathias MD [address] [place] [address] 68692 Gastroenterology 09/25/24 Adonay Haq MD [address] [place] [address] [phone] Assigned PCP 10/01/24 12/28/24 Omar Carmona MD [address] [place] [address] 07474 Assigned PCP 12/29/24 Jason Alvares MD [address] [place] [address] 21178 Assigned Neuroscience Provider 12/29/24 Jignesh Mathias MD [address] [place] [address] 83656 Assigned Surgical Provider 12/29/24 Ayad Lopez, PhD LP [address] [place] [address] 186705 Assigned Behavioral Health Provider 02/28/25 Gavi Nieto PA-C [address] [place] [address] [phone] Physician Chemical Pumper Dermatology 03/19/25 documented as of this encounter
--- OUTSIDE RECORDS SUMMARY | 2025-06-08 22:54 | XMS_ITS | Encounter Summary ---
Author Organization [place] Address [address] [place] [address] Care Team Providers Care Musical Instruments Assembler Name Role Phone Rio Jaquez MD Primary Care Provider Barry Kilpatrick MD Unavailable Michelle Henderson I RN Unavailable [phone] Rio Jaquez MD Unavailable +[phone] Jemima Jaramillo MD Unavailable Unavai Kelley Bautista RN Unavailable +[phone] Sydnee Saleem MD Unavailable +[phone] Karlene Moya MD Unavailable +[phone] Wilbert Quintero OD Unavailable +[phone] Rod GauthierM Unavailable +[phone] Jan Mahmood MD Unavailable +[phone] Brandt Quintana MD Unavailable Jan Mahmood MD Unavailable +[phone] Rio Jaquez MD Unavailable +[phone] Dom Eason MD Unavailable + [phone] [place], Jaimie RN Unavailable Unavailable Marquise Hanley MD Unavailable +[phone] Vlad Ramey MD Unavailable +[phone] Joesph Crowe MD Unavailable + [phone] Michelle Padilla RN Unavailable Unavaila ble Marquise Hanley MD Unavailable +-[phone] Wagner Oliver MD Unavailable +[phone] Laura Epperson NP Unavailable +[phone] Joesph Crowe MD Unavailable +[phone] Joesph Crowe MD Unavailable + [phone] Adonay Haq MD Unavailable +[phone] Denilson Srinivasan MD Unavailable + [phone] Jason Alvares MD Unavailable Ruth Riddle DPM, Podiatry /Foot and Ankle Surgery Unavailable Omar Carmona MD Primary Care Provider [phone] Jignesh Mathias MD Unavailable Adonay Haq MD Unavailable [phone] Omar Carmona MD Unavailable +[phone] Jason Alvares MD Unavailable Jignesh Mathias MD Unavailable Ayad Lopez PhD LP Unavailable +[phone] Gavi Nieto PA-C Unavailable +[phone] Encounter Details Date Type Department Care Team (Late st Contact Info) Description 03/30/2024 [facility] Preoperative Assessment [address] 5th [place] [address] Mickie Mora, RN Social History Tobacco Use Types Packs/Day Years Used Date Smoking Tobacco: Every Day Cigarettes 0.5 42.8 Started: 08/09/1982 Other Smokeless Tobacco: Never Comments:/2 PPD Alcohol Use Standard Drinks/Week Comments Not Currently 0 (1 standard drink = 0.6 oz pure alcohol) Haven't had a drink since this time last year Social Connection and Isolation Panel Answer Date [...] Answer Date Recorded PHQ-2 Score 2 02/28/2024 [facility] - Occupational Stress Questionnaire Answer Date [...] in an overnight alf, or couch-surfing.) Yes 07/12/2023 Are you worried [...] Sex Assigned at Female 09/12/2020 12:05 PM TECHNOLOGY SALES SPECIALIST Legal Sex Female 3:26 AM TECHNOLOGY SALES SPECIALIST Gender Identity Female 09/12/2020 12:05 PM TECHNOLOGY SALES SPECIALIST Sexual Orientation Straight 12/19/2021 10 :44 AM CDT Occupation Industry Job Start Date Job End Date on disability for FMS Not on file Not on file Not on file disabled Not on file Not on file Not on file documented as of this encounter Plan of Treatment Upcoming Encounters Date Type Department Care Team (Late st Contact Info) Description 06/13/2025 6:00 PM TECHNOLOGY SALES SPECIALIST Ancillary Procedure [facility] [address] [address] Omar Carmona MD [address] [place] [address] 06/14/2025 4:00 PM TECHNOLOGY SALES SPECIALIST Office Visit [facility] Primary Care [address] [phone] Omar Carmona MD [address] [place] [address] 06/15/2025 12:45 PM TECHNOLOGY SALES SPECIALIST Therapy Visit [facility] [address] [place] [phone] Jason Alvares MD [address] [place] [address] 295 [place], [place] [phone] Chaya Castillo OTR [facility] 150 [place], [place] 465157 06/19/2025 10:30 AM TECHNOLOGY SALES SPECIALIST Virtual Visit [facility] Primary Care [address] [phone] Omar Carmona MD [address] [place] [address] 899605 Gerson Santos [facility] 06/26/2025 11:00 AM TECHNOLOGY SALES SPECIALIST Therapy Visit [facility] [address] [place] [phone] Jason Alvares MD [address] [place] [address] 295 [place], [place] 725285 [facility] 150 [place] [address] 07/09/2025 12:45 PM TECHNOLOGY SALES SPECIALIST Therapy Visit [facility] [address] [place] [phone] Jason Alvares MD 420 [facility] 295 [place] [address] Chaya Castillo, LETA [address] [address] 07/18/2025 3:00 PM TECHNOLOGY SALES SPECIALIST Office Visit [facility] Heart [address] [phone] Adonay Chapman APRN [facility] 500 [place] [address] 11/05/2025 12:30 PM CDT Lab [facility] Lab [address] [place] [phone] 11/05/2025 1:45 PM CDT Office Visit [facility] Dermatology [address] [place] [phone] Gavi Nieto PA-C Dermatology [address] [place] [address] [id number] 11/20/2025 10:30 AM CDT Virtual Visit [address] [address] Marquise Hanley MD [address] [place] [address] documented as of this encounter Goals Goal [...] documented as of this encounter Care Teams Musical Instruments Assembler Relationship Specialty Start Date End Date Rio Jaquez MD [address] [place] [address] 4 [place] [address] PCP - General Family Practice 12/02/10 07/13/24 Omar Carmona MD [address] [place] [address] PCP - General Family Medicine 07/14/24 Barry Kilpatrick MD [address] [place] [address] [id number] [place] [address] Neurology 07/19/14 Michelle Henderson I, TANIA Nurse Coordinator Neurology 07/19/14 Rio Jaquez MD [address] [place] [address] Family Practice 10/15/14 Jemima Jaramillo MD subway train driver 11/20/14 Kelley Chin, TANIA [address] [address] Nurse Coordinator Cardiology 11/04/15 Sydnee Saleem MD [address] [place] [address] 508 [place], [place] 755995 Cardiology 11/04/15 Karlene Moya MD [address] [place] [address] [phone] Ophthalmology 06/24/17 Wilbert Quintero OD [address] [place] [address] Optometry 06/24/17 Rod Gauthier DPM 9 [place] [address] Sebd Teacher Primary Podiatric Medicine 06/21/18 Jan Mahmood MD 6 [facility] 2A [place], [place] 168525 Gastroenterology 11/05/20 [place] [address] [place] [address] Resident 11/05/20 Jan Mahmood MD 6 [facility] [address] [place] [address] Assigned Gastroenterology Provider 12/01/20 Rio Jaquez MD 9 [facility] 4 [place] [address] Assigned PCP 11/17/20 09/30/24 Dom Eason MD 7 [facility] 353 [place] [address] Internal Medicine 12/02/20 Jaimie Vernon, RN Specialty Hand Hardener Cardiology 10/28/21 Marquise Hanley MD [address] [place] [address] 380995 Endocrinology, Diabetes, and Metabolism 03/05/22 Vlad Ramey MD [address] [place] [address] Cardiovascular Disease 05/07/22 Joesph Crowe MD [address] [place] [address] Surgery 05/07/22 Michelle Padilla, RN Specialty Hand Hardener Cardiology 07/03/22 Marquise Hanley MD [address] [place] [address] Assigned Endocrinology Provider 08/15/22 Wagner Oliver MD [address] [place] [address] Critical Care 12/15/22 Laura Epperson NP [address] [place], [place] [address] [place] [address] Assigned Nephrology Provider 02/20/23 08/30/24 Joesph Crowe MD [address] [place] [address] Surgery 03/17/23 Joesph Crowe MD [address] [place] [address] Assigned Surgical Provider 04/03/23 09/30/24 Adonay Haq MD [address] [place] [address] Internal Medicine 06/14/23October, Denilson Jackson MD [address] [place] [address] Assigned Heart and Vascular Provider 05/29/23 11/28/24 Jason Alvares MD [address] [facility] 295 [place] [address] Assigned Neuroscience Provider 05/15/23 11/28/24 Ruth Riddle DPM, Podiatry/Foot and Ankle Surgery [address] [place] [address] Assigned Musculoskeletal Provider 10/22/23 Jignesh Mathias MD [address] [place] [address] Gastroenterology 09/25/24 Adonay Haq MD [address] [place] [address] 853975 Assigned PCP 10/01/24 12/28/24 Omar Carmona MD [address] [place] [address] Assigned PCP 12/29/24 Jason Alvares MD [address] [place] [address] Assigned Neuroscience Provider 12/29/24 Jignesh Mathias MD [address] [place] [address] Assigned Surgical Provider 12/29/24 Ayad Lopez, PhD LP [address] [place] [address] 826325 Assigned Behavioral Health Provider 02/28/25 Gavi Nieto PA-C [address] [place] [address] 700145 Physician Rubber Mold Maker Dermatology 03/19/25 documented as of this encounter
--- OUTSIDE RECORDS SUMMARY | 2025-06-08 22:54 | XMS_ITS | Encounter Summary ---
Author Organization [place] Address [address] [place] [address] Care Team Providers Care Bridge Game Director Name Role Phone Rio Jaquez MD Primary Care Provider Barry Kilpatrick MD Unavailable Michelle Henderson I RN Unavailable [phone] Rio Jaquez MD Unavailable +[phone] Jemima Jaramillo MD Unavailable Unavai Kelley Bautista RN Unavailable [phone] Sydnee Saleem MD Unavailable [phone] Karlene Moya MD Unavailable +[phone] Wilbert Quintero OD Unavailable +[phone] Rod GauthierM Unavailable +[phone] Jan Mahmood MD Unavailable [phone] Brandt Quintana MD Unavailable Jan Mahmood MD Unavailable +[phone] Rio Jaquez MD Unavailable +[phone] Dom Eason MD Unavailable + [phone] [place], Jaimie RN Unavailable Unavailable Marquise Hanley MD Unavailable +[phone] Vlad Ramey MD Unavailable +[phone] Joesph Crowe MD Unavailable + [phone] Michelle Padilla RN Unavailable Unavaila ble Marquise Hanley MD Unavailable +[phone] Wagner Oliver MD Unavailable +[phone] Laura Epperson NP Unavailable +[phone] Joesph Crowe MD Unavailable +[phone] Joesph Crowe MD Unavailable + [phone] Adonay Haq MD Unavailable [phone] Denilson Srinivasan MD Unavailable + [phone] Jason Alvares MD Unavailable Ruth RiddleM, Podiatry /Foot and Ankle Surgery Unavailable Omar aCrmona MD Primary Care Provider [phone] Jignesh Mathias MD Unavailable Adonay Haq MD Unavailable [phone] Omar Carmona MD Unavailable [phone] Jason Alvares MD Unavailable Jignesh Mathias MD Unavailable Ayad Lopez PhD LP Unavailable [phone] Gavi Nieto PA-C Unavailable [phone] Encounter Details Date Type Department Care Team (Late st Contact Info) Description 05/23/2024 [facility] [address] [address] Georgina Don, RN Social History [...] any clubs o r organizations such as scientologist groups, unions, fraternal or athletic groups, or [...] Date Recorded PHQ-2 Score 2 02/28/2024 [facility] - Occupational Stress Questionnaire [...] Sex Assigned at Female 09/12/2020 12:05 PM INTERPERSONAL COMMUNICATIONS PROFESSOR Legal Sex Female 3:26 AM INTERPERSONAL COMMUNICATIONS PROFESSOR Gender Identity Female 09/12/2020 12:05 PM INTERPERSONAL COMMUNICATIONS PROFESSOR Sexual Orientation Straight 12/19/2021 10 :44 AM CDT Occupation Industry Job Start Date Job End Date on disability for FMS Not on file Not on file Not on file disabled Not on file Not on file Not on file documented as of this encounter Plan of Treatment Upcoming Encounters Date Type Department Care Team (Late st Contact Info) Description 06/13/2025 6:00 PM INTERPERSONAL COMMUNICATIONS PROFESSOR Ancillary Procedure [facility] [address] [address] Omar Carmona MD [address] [place] [address] 06/14/2025 4:00 PM INTERPERSONAL COMMUNICATIONS PROFESSOR Office Visit [facility] Primary Care [address] [phone] Omar Carmona MD [address] [place] [address] 06/15/2025 12:45 PM INTERPERSONAL COMMUNICATIONS PROFESSOR Therapy Visit [facility] 150 [place] [phone] Jason Alvares MD [address] [place] [address] 808965 Chaya Castillo OTR [address] [address] 06/19/2025 10:30 AM INTERPERSONAL COMMUNICATIONS PROFESSOR Virtual Visit [facility] Primary Care [address] [phone] Omar Carmona MD [address] [place] [address] [phone] Gerson Santos [facility] 06/26/2025 11:00 AM INTERPERSONAL COMMUNICATIONS PROFESSOR Therapy Visit [facility] 150 [place] [phone] Jason Alvares MD [address] [place] [address] 724705 Chaya Castillo OTMari [address] 681297 07/09/2025 12:45 PM INTERPERSONAL COMMUNICATIONS PROFESSOR Therapy Visit [facility] 150 [place] [phone] Jason Alvares MD [address] [place] [address] Chaya Castillo, LETA [address] [address] 07/18/2025 3:00 PM INTERPERSONAL COMMUNICATIONS PROFESSOR Office Visit [facility] Heart [address] [phone] Adonay Chapman APRN [facility] 500 [place] [address] 11/05/2025 12:30 PM CDT Lab [address]st [place] [phone] 11/05/2025 1:45 PM CDT Office Visit [facility] Dermatology [address]rd [place] [phone] Gavi Nieto PA-C Dermatology [address] [place] [address] 11/20/2025 10:30 AM CDT Virtual Visit [address] [phone] Marquise Hanley MD [address] [place] [address] 294565 documented as of this encounter Goals Goal [...] as of this encounter Care Teams Bridge Game Director Relationship Specialty Start Date End Date Rio Jaquez MD [address] [place] [address] PCP - General Family Practice 12/02/10 07/13/24 Omar Carmona MD [address] [place] [address] PCP - General Family Medicine 07/14/24 Barry Kilpartick MD [address] [place] [address] [id number] [place], [place] 968795 Neurology 07/19/14 Michelle Henderson RN Nurse Coordinator Neurology 07/19/14 Rio Jaquez MD [address] [place] [address] Family Practice 10/15/14 Jemima Jaramillo MD airline stewardess 11/20/14 Kelley Chin, TANIA [address] 272125 Nurse Coordinator Cardiology 11/04/15 Sydnee Saleem MD 420 [facility] 508 [place], [place] 220955 Cardiology 11/04/15 Karlene Moya MD [address] [place] [address] [phone] Ophthalmology 06/24/17 Wilbert Quintero, OD 9 [place] [address] Optometry 06/24/17 Rod Gauthier DPM [address] [place] [address] Gate Clerk Primary Podiatric Medicine 06/21/18 Jan Mahmood MD [address] [place] [address] Gastroenterology 11/05/20 Brandt Quintana MD [address] [place] [address] Resident 11/05/20 Jan Mahmood MD [address] [place] [address] Assigned Gastroenterology Provider 12/01/20 Rio Jaquez MD [address] [place] [address] Assigned PCP 11/17/20 09/30/24 Dom Eason MD [address] [place] [address]863 Internal Medicine 12/02/20 Jaimie Vernon, TANIA Specialty Loom Repairer Cardiology 10/28/21 Marquise Hanley MD [address] [place] [address] Endocrinology, Diabetes, and Metabolism 03/05/22 Vlad Ramey MD [address] [place] [address] 67983 Cardiovascular Disease 05/07/22 Joesph Crowe MD [address] [place] [address] 00553 Surgery 05/07/22 Michelle Padilla, RN Specialty Loom Repairer Cardiology 07/03/22 Marquise Hanley MD [address] [place] [address] Assigned Endocrinology Provider 08/15/22 Wagner Oliver MD [address] [place] [address] Critical Care 12/15/22 Laura Epperson NP [address] [place], [place] [address] [place] [address] Assigned Nephrology Provider 02/20/23 08/30/24 Joesph Crowe MD [address] [place] [address] 9[address]25 Surgery 03/17/23 Joesph Crowe MD [address] [place] [address]51 Assigned Surgical Provider 04/03/23 09/30/24 Adonay Haq MD [address] [place] [address] Internal Medicine 06/14/23OctoberDenilson MD [address] [place], [place] 922665 Assigned Heart and Vascular Provider 05/29/23 11/28/24 Jason Alvares MD [address] [place] [address] 295 [place], [place] 782485 Assigned Neuroscience Provider 05/15/23 11/28/24 Ruth Riddle, DPM, Podiatry/Foot and Ankle Surgery [address] [place], [place] 659737 Assigned Musculoskeletal Provider 10/22/23 Jignesh Mathias MD [address] [place] [address] 607915 Gastroenterology 09/25/24 Adonay Haq MD [address] [place] [address] 396125 Assigned PCP 10/01/24 12/28/24 Omar Carmona MD [address] [place] [address] 786665 Assigned PCP 12/29/24 Jason Alvares MD [address] [place] [address] 295 [place], [place] 160855 Assigned Neuroscience Provider 12/29/24 Jignesh Mathias MD [address] [place] [address] 95304 Assigned Surgical Provider 12/29/24 Ayad Lopez, PhD LP [address] [place] [address] 994905 Assigned Behavioral Health Provider 02/28/25 Gavi Nieto PA-C 500 [place], [place] 283125 Physician Sport Psychologist Dermatology 03/19/25 documented as of this encounter
--- OUTSIDE RECORDS SUMMARY | 2025-06-08 22:54 | XMS_ITS | Encounter Summary ---
Author Organization [facility] Address [address] [place] [address] Care Team Providers Care R Developer Name Role Phone Rio Jaquez MD Primary Care Provider Barry Kilpatrick MD Unavailable Michelle Henderson RN Unavailable [phone] Rio Jaquez MD Unavailable +[phone] Jemima Jaramillo MD Unavailable Unavai Kelley Bautista RN Unavailable [phone] Sydnee Saleem MD Unavailable +[phone] Karlene Moya MD Unavailable +[phone] Wilbert Quintero OD Unavailable +[phone] Rod Gauthier DPM Unavailable +[phone] Nallely Hogue RN Unavailable Unavailable Larisa Vargas RN Unavailable Unavailable Francisco Lott MD Unavailable +[phone] Greg Ortega MD Unavailable +[phone] Jan Mahmood MD Unavailable +[phone] Brandt Quintana MD Unavailable +[phone] Jan Mahmood MD Unavailable Rio Jaquez [...] Unavailable +[phone] Thom Taveras MD Unavailable +[phone] Joesph Crowe MD Unavailable +[phone] Joesph Crowe MD Unavailable +[phone] Adonay Haq MD Unavailable [phone] Denilson Srinivasan MD Unavailable +[phone] Jason Alvares MD Unavailable Ruth RiddleM, Podiatry /Foot and Ankle Surgery Unavailable Omar Carmona MD Primary Care Provider [phone] Jignesh Mathias MD Unavailable Adonay Haq MD Unavailable [phone] Omar Carmona MD Unavailable +[phone] Jason Alvares MD Unavailable Jignesh Mathias MD Unavailable Ayad Lopez PhD LP Unavailable +[phone] Gavi Nieto-Keisha Unavailable +[phone] Encounter Details Date Type Department Care Team (Late st Contact Info) Description 08/20/2021 [facility] Medical Advice Initial Department [address] [place] [phone] [facility] Social History Tobacco Use Types Packs/Day Years [...] Assigned at Female 09/12/2020 12:05 PM HEALTH TECHNICIAN Legal Sex Female 3:26 AM HEALTH TECHNICIAN Gender Identity Female 09/12/2020 12:05 PM HEALTH TECHNICIAN Sexual Orientation Straight 12/19/2021 10 :44 AM CDT Occupation Industry Job Start Date Job End Date on disability for FMS Not on file Not on file Not on file COVID-19 Exposure Response Date Recorded In the last month, have you been in contact with someone who was confirmed or suspected to have Coronavirus / COVID-19? No / Unsure 08/19/2021 10:58 AM HEALTH TECHNICIAN documented as of this encounter Plan of Treatment Upcoming Encounters Date Type Department Care Team (Late st Contact Info) Description 06/13/2025 6:00 PM HEALTH TECHNICIAN Ancillary Procedure [facility] Clinic [address] [phone] Omar Carmona MD [address] [place] [address] [phone] 06/14/2025 4:00 PM HEALTH TECHNICIAN Office Visit [facility] Care [address] [phone] Omar Carmona MD [address] [place] [address] 341065 06/15/2025 12:45 PM HEALTH TECHNICIAN Therapy Visit [address] [phone] Jason Alvares MD [address] [place] [address] [phone] Chaya Castillo, OTR [address] [address] 06/19/2025 10:30 AM HEALTH TECHNICIAN Virtual Visit [address] [phone] Omar Carmona MD [address] [place] [address] 819005 Gerson Santos RPH 06/26/2025 11:00 AM HEALTH TECHNICIAN Therapy Visit [address] [phone] Jason Alvares MD [address] [place] [address] 15487 Chaya Castillo OTR [facility] 150 [place] [address] 07/09/2025 12:45 PM HEALTH TECHNICIAN Therapy Visit [facility] Rehabilitation Services [address] [phone] Jason Alvares MD 420 [facility] 295 [place] [address] Chaya Castillo OTR [address] [address] 07/18/2025 3:00 PM HEALTH TECHNICIAN Office Visit [facility] Heart [address] [phone] Adonay Chapman APRN [address] [address] 11/05/2025 12:30 PM CDT Lab [facility] Lab [address] [phone] 11/05/2025 1:45 PM CDT Office Visit [facility] Dermatology [address] [phone] Gavi Nieto PA-C Dermatology [address] [place] [address] 11/20/2025 10:30 AM CDT Virtual Visit [address] [phone] Marquise aHnley MD [address] [place] [address] 26219 documented as of this encounter Goals Goal [...] Depression Total Score: 12 021 9:43 AM HEALTH TECHNICIAN documented as of this encounter Care Teams R Developer Relationship Specialty Start Date End Date Rio Jaquez MD [address] [place] [address] 69770 PCP - General Family Practice 12/02/10 07/13/24 Omar Carmona MD [address] [place] [address] [phone] PCP - General Family Medicine 07/14/24 Barry Kilpatrick MD [address] [place] [address] [id number] [place], [place] 900055 Neurology 07/19/14 Michelle Henderson RN Nurse Coordinator Neurology 07/19/14 Rio Jaquez MD [address] [place] [address] 042645 Family Practice 10/15/14 Jemima Jaramillo MD intermediate card tender 11/20/14 Kelley Chin, TANIA [address] 132805 Nurse Coordinator Cardiology 11/04/15 Sydnee Saleem MD [address] [place] [address] 508 [place], [place] 157015 Cardiology 11/04/15 Karlene Moya MD [address] [place] [address] [phone] Ophthalmology 06/24/17 Wilbert Quintero, OD [address] [place] [address] 279375 Optometry 06/24/17 Rod Gauthier DPM [address] [place], [place] 3660[address] Prosthetic Dentist Primary Podiatric Medicine 06/21/18 Nallely Hogue, RN Registered Nurse 02/20/19 11/23/22 Larisa Vargas, TANIA Specialty Sports Physiotherapist Cardiology 04/18/19 03/06/22 Francisco Lott MD [address] [place] [address] 88 [place], [place] 951885 Assigned Rheumatology Provider 05/31/20 12/13/21 Greg Ortega MD [address] [place] [address] 56512 Assigned Surgical Provider 06/23/20 12/06/21 Jan Mahmood MD [address] [place] [address] 2[address] [place] [address] Gastroenterology 11/05/20 Brandt Quintana MD 1414 [place] [address] Resident 11/05/20 Jan Mahmood MD 516 [facility] 2A [place] [address] Assigned Gastroenterology Provider 12/01/20 Rio Jaquez MD [address] [facility] 4 [place] [address] Assigned PCP 11/17/20 09/30/24 Dom Eason MD 717 [facility] 353 [place], [place] 505514 Internal Medicine 12/02/20 Jayla Plaza, RN Specialty Sports Physiotherapist Hepatology 01/09/21 02/13/24 Sydnee Saleem MD [address] [place] [address] [phone] Assigned Heart and Vascular Provider 02/02/21 07/24/22 Phan Coello MD Assigned Neuroscience Provider 02/21/21 11/22/21 Cristian Barragan MD 2945 [place] [address] Assigned Infectious Disease Provider 02/21/21 03/06/22 Dom Eason MD 717 [facility] 353 [place] [address] Assigned Nephrology Provider 04/20/21 01/02/22 Jaimie Vernon, RN Specialty Sports Physiotherapist Cardiology 10/28/21 Ruth Riddle DPM, Podiatry/Foot and Ankle Surgery [address] [place] [address] [place] [address]75 Assigned Musculoskeletal Provider 11/30/21 09/30/23 Luis Arrington MD [address] [place] [address] 80784 Assigned Neuroscience Provider 11/23/21 01/02/22 Jason Alvares MD [address] [place] [address] 74276 Assigned Neuroscience Provider 01/03/22 05/15/22 Marquise Hanley MD [address] [place] [address] 92886 Endocrinology, Diabetes, and Metabolism 03/05/22 Vlad Ramey MD [address] [place] [address] 99838 Cardiovascular Disease 05/07/22 Joesph Crowe MD [address] [place] [address] 62348 Surgery 05/07/22 Luis Arrington MD [address] [place] [address] 88406 Assigned Neuroscience Provider 05/16/22 05/14/23 Michelle Padilla RN Specialty Sports Physiotherapist Cardiology 07/03/22 Vlad Ramey MD [address] [place] [address] [place] [address] Assigned Heart and Vascular Provider 07/25/22 05/28/23 Marquise Hanley MD [address] [place] [address] 88464 Assigned Endocrinology Provider 08/15/22 Dom Eason MD 717 [facility] [place] 353 [place] [address] Assigned Nephrology Provider 11/28/22 02/19/23 Wagner Oliver MD 6401 [facility] [place] [address] Critical Care 12/15/22 Laura Epperson NP [address] [place] [address] 1932 [place] [address] Assigned Nephrology Provider 02/20/23 08/30/24 Thom Taveras MD [address], R[address] [place] [address] Assigned Cancer Care Provider 02/06/23 08/20/23 Joesph Crowe MD [address] [place] [address] 31296 Surgery 03/17/23 Joesph Crowe MD [address] [place] [address] 89674 Assigned Surgical Provider 04/03/23 09/30/24 Adonay Haq MD [address] [place] [address] 24831 Internal Medicine 06/14/23OctoberDenilson MD [address] [address] [facility] [address] [place] [address] Assigned Heart and Vascular Provider 05/29/23 11/28/24 Jason Alvares MD 420 [facility] 295 [place], [place] 651505 Assigned Neuroscience Provider 05/15/23 11/28/24 Ruth Riddle DPM, Podiatry/Foot and Ankle Surgery [address] [place] [address] [place], [place] 167207 Assigned Musculoskeletal Provider 10/22/23 Jignesh Mathias MD [address] [place] [address] 967835 Gastroenterology 09/25/24 Adonay Haq MD [address] [place] [address] 63496 Assigned PCP 10/01/24 12/28/24 Omar Carmona MD [address] [place] [address] 18606 Assigned PCP 12/29/24 Jason Alvares MD [address] [address] Assigned Neuroscience Provider 12/29/24 Jignesh Mathias MD 909 [place] [address] Assigned Surgical Provider 12/29/24 Ayad Lopez, PhD LP [address] [place] [address] 04886 Assigned Behavioral Health Provider 02/28/25 Gavi Nieto PA-C [address] [place] [address] 032755 Physician Electric Scoop Operator Dermatology 03/19/25 documented as of this encounter
--- OUTSIDE RECORDS SUMMARY | 2025-06-08 22:54 | XMS_ITS | Encounter Summary ---
Author Organization [facility] Address [address] [place] [address] 14499 Care Team Providers Care Solar Panel Technician Name Role Phone Rio Jaquez MD Primary Care Provider Barry Kilpatrick MD Unavailable Michelle Henderson RN Unavailable [phone] Cathie Lucero NP Unavailable [phone] Rio Jaqeuz MD Unavailable [phone] Jemima Jaramillo MD Unavailable Unavai Rudolph Padilla MD Unavailable Kelley Chin RN Unavailable Sydnee Saleem MD Unavailable [phone] [facility] MD Unavailable +[phone] Alexandria Nelson RN Unavailable [phone] Karlene Moya MD Unavailable +[phone] Wilbert Quintero OD Unavailable +[phone] Rod Gauthier DPM Unavailable Kerrie Verdin PA-C Unavailable [phone] Nallely Hogue RN Unavailable Unavailable Larisa [...] +[phone] Joesph Crowe MD Unavailable +[phone] Luis Arrington MD Unavailable Michelle Padilla RN Unavailable Unavaila ble Vlad Ramey MD Unavailable +[phone] Marquise Hanley MD Unavailable [phone] Dom Eason MD Unavailable +[phone] Wagner Oliver MD Unavailable +[phone] Laura Epperson NP Unavailable [phone] Thom Taveras MD Unavailable +[phone] Joesph Crowe MD Unavailable + [phone] Joesph Crowe MD Unavailable + [phone] Adonay Haq MD Unavailable [phone] OctoberDenilson MD Unavailable + [phone] Jason Alvares MD Unavailable Ruth Riddle DPM, Podiatry /Foot and Ankle Surgery Unavailable Omar Carmona MD Primary Care Provider [phone] Jignesh Mathias MD Unavailable Adonay Haq MD Unavailable [phone] Omar Carmona MD Unavailable [phone] Jason Alvares MD Unavailable Jignesh Mathias MD Unavailable Ayad Lopez PhD LP Unavailable [phone] Gavi Nieto PA-C Unavailable [phone] Encounter Details Date Type Department Care Team (Late st Contact Info) Description 07/26/2014 [facility] Medical Advice Neurology Clinic [facility] 1st Floor, Clinic 1A 6 [place] [phone] Barry Kilpatrick MD [address] [place] [address] [id number] [place], [place] 266235 Social History Tobacco Use Types Packs/Day Years Used Date Smoking Tobacco: Every Day Cigarettes 1 28 Smokeless Tobacco: Never Alcohol Use Standard Drinks/Week Comments Yes 4.2 (1 standard drink = 0.6 oz p ure alcohol) occ Comments No Sex and Gender Information Value Date Recorded Sex Assigned at Female 09/12/2020 12:05 PM GENERAL SCIENCE TEACHER Legal Sex Female 3:26 AM GENERAL SCIENCE TEACHER Gender Identity Female 09/12/2020 12:05 PM GENERAL SCIENCE TEACHER Sexual Orientation Straight 12/19/2021 10 :44 AM CDT Occupation Industry Job Start Date Job End Date on disability for FMS Not on file Not on file Not on file documented as of this encounter Plan of Treatment Upcoming Encounters Date Type Department Care Team (Late st Contact Info) Description 06/13/2025 6:00 PM GENERAL SCIENCE TEACHER Ancillary Procedure [facility] CT Clinic [address] 1st [place] [phone] Omar Carmona MD [address] [place] [address] [phone] 06/14/2025 4:00 PM GENERAL SCIENCE TEACHER Office Visit [facility] [address] 4th [place] [phone] Omar Carmona MD [address] [place] [address] [phone] 06/15/2025 12:45 PM GENERAL SCIENCE TEACHER Therapy Visit [facility] [address] [address] Jason Alvares MD [address] [place] [address] 295 [place], [place] 687505 Chaya Castillo OTR [facility] 150 [place] [address] 06/19/2025 10:30 AM GENERAL SCIENCE TEACHER Virtual Visit [facility] [address] [place] [address] 4th [place] [phone] Omar Carmona MD [address] [place] [address] [phone] Gerson Santos [facility] 06/26/2025 11:00 AM GENERAL SCIENCE TEACHER Therapy Visit [facility] 150 [place] [phone] Jason Alvares MD [address] [place] [address] Chaya Castillo OTR [facility] 150 [place] [address] 07/09/2025 12:45 PM GENERAL SCIENCE TEACHER Therapy Visit [facility] 150 [place] [phone] Jason Alvares MD [address] [place] [address] 20[address] Chaya Castillo OTR [facility] 150 [place] [address] 07/18/2025 3:00 PM GENERAL SCIENCE TEACHER Office Visit [facility] [address] [phone] Adonay Chapman APRN [address] 877305 11/05/2025 12:30 PM CDT Lab [facility] [address] [phone] 11/05/2025 1:45 PM CDT Office Visit [facility] [place] 909 [facility] 3rd [place] [phone] Gavi Nieto PA-C Dermatology [address] [place] [address] 11/20/2025 10:30 AM CDT Virtual Visit [address] [place] [phone] Marquise Hanley MD [address] [place] [address] 966595 documented as of this encounter Goals Goal [...] documented as of this encounter Care Teams Solar Panel Technician Relationship Specialty Start Date End Date Rio Jaquez MD [address] [place] [address] 4 [place] [address] PCP - General Family Practice 12/02/10 07/13/24 Omar Carmona MD [address] [place] [address] 17136 PCP - General Family Medicine 07/14/24 Barry Kilpatrick MD [address] [place] [address] [id number] [place] [address] Neurology 07/19/14 Michelle Henderson I, RN Nurse Coordinator Neurology 07/19/14 Cathie Lucero NP 500 [place] [address] Clinic Cow Puncher Cardiology 07/19/14 Rio Jaquez MD 909 [facility] 4 [place] [address] Family Practice 10/15/14 Jemima Jaramillo MD 500 [place] [address] distribution transformer assembler 11/20/14 Rudolph Leal MD [address] [place] [address] [phone] Student in organized health care education/training program 11/27/14 07/04/18 Kelley Chin RN [facility] 909 [place], [place] 188935 Nurse Coordinator Cardiology 11/04/15 Sydnee Saleem MD 420 [facility] 508 [place], [place] 305305 Cardiology 11/04/15 Eduin Fraga MD 420 [facility] 480 [place], [place] 127125 Hematology 09/17/16 02/25/17 Alexandria Nelson, TANIA Nurse Coordinator Hematology & Oncology 09/17/16 02/25/17 Karlene Moya MD [address] [place] [address] 77062 Ophthalmology 06/24/17 Wilbert Quintero OD [address] [place] [address] 381465 Optometry 06/24/17 Rod Gauthier DPM [address] [place] [address] [phone] Medicaid Plan Compliance Director Primary Podiatric Medicine 06/21/18 Kerrie Verdin PA-C [address] [place] [address] 086675 Physician Paediatrician Physician Paediatrician 06/21/1808/07 Nallely Hogue, RN Registered Nurse 02/20/19 11/23/22 Larisa Vargas, TANIA Specialty Cow Puncher Cardiology 04/18/19 03/06/22 Rio Jaquez MD [address] [place] [address] [phone] Assigned PCP 12/28/19 11/16/20 Ruth Yarbrough MD [address] [place] [address] 372915 Assigned Endocrinology Provider 05/31/20 09/28/20 Francisco Lott MD [address] [place] [address] [phone] Assigned Rheumatology Provider 05/31/20 12/13/21 Frida Grace MD [address] [place] [address] [place] [address] Assigned Pediatric Specialist Provider 05/31/20 09/08/20 Sydnee Saleem MD [address] [facility] [address] [place] [address] [phone] Assigned Heart and Vascular Provider 05/31/20 10/22/20 Greg Ortega MD 9 [place] [address] Assigned Surgical Provider 06/23/20 12/06/21 Frida Grace MD [facility] [place] [address] [place] [address] Assigned Surgical Provider 05/31/20 06/22/20 Jan Mahmood MD [address] [address] Gastroenterology 11/05/20 Brandt Quintana MD [address] [place] [address] [phone] Resident 11/05/20 Jan Mahmood MD [address] [place] [address] 7[address] Assigned Gastroenterology Provider 12/01/20 Rio Jaquez MD [address] [phone] Assigned PCP 11/17/20 09/30/24 Dom Eason MD 717 [facility] 353 [place] [address] Internal Medicine 12/02/20 Jayla Plaza, RN Specialty Cow Puncher Hepatology 01/09/21 02/13/24 Jayla Plaza, RN Specialty Cow Puncher Hepatology 01/10/21 01/10/21 Sydnee Saleem MD 6550 [facility] [address] [place] [address] Assigned Heart and Vascular Provider 02/02/21 07/24/22 Phan Coello MD Assigned Neuroscience Provider 02/21/21 11/22/21 Cristian Barragan MD 2945 [place], [place] [phone] Assigned Infectious Disease Provider 02/21/21 03/06/22 Dom Eason MD [address] [place] [address] 353 [place], [place] 722244 Assigned Nephrology Provider 04/20/21 01/02/22 Jaimie Vernon, TANIA Specialty Cow Puncher Cardiology 10/28/21 Ruth Riddle, DPM, Podiatry/Foot and Ankle Surgery [address] [facility] 300 [place], [place] [phone] Assigned Musculoskeletal Provider 11/30/21 09/30/23 Luis Arrington MD 909 [place], [place] 921485 Assigned Neuroscience Provider 11/23/21 01/02/22 Jason Alvares MD 420 [facility] 295 [place] [address] Assigned Neuroscience Provider 01/03/22 05/15/22 Marquise Hanley MD [address] [place] [address] 31771 Endocrinology, Diabetes, and Metabolism 03/05/22 Vlad Ramey MD [address] [place] [address] 06061 Cardiovascular Disease 05/07/22 Joesph Crowe MD [address] [place] [address] 46009 Surgery 05/07/22 Luis Arrington MD [address] [place] [address] 61172 Assigned Neuroscience Provider 05/16/22 05/14/23 Michelle Padilla RN Specialty Cow Puncher Cardiology 07/03/22 Vlad Ramey MD [address] [place] [address] 59626 Assigned Heart and Vascular Provider 07/25/22 05/28/23 Marquise Hanley MD [address] [place] [address] 20090 Assigned Endocrinology Provider 08/15/22 Dom Eason MD [address] [place] [address] 27177 Assigned Nephrology Provider 11/28/22 02/19/23 Wagner Oliver MD [address] [place] [address] Critical Care 12/15/22 Laura Epperson NP 717 [facility] 1932 [place] [address] Assigned Nephrology Provider 02/20/23 08/30/24 Thom Taveras MD [address] [place] [address] Assigned Cancer Care Provider 02/06/23 08/20/23 Joesph Crowe MD [address] [place] [address] Surgery 03/17/23 Joesph Crowe MD 909 [place] [address] Assigned Surgical Provider 04/03/23 09/30/24 Adonay Haq MD 909 [place] [address] Internal Medicine 06/14/23OctoberDenilson MD [address] [facility] [address] [place] [address] Assigned Heart and Vascular Provider 05/29/23 11/28/24 Jason Alvares MD 420 [facility] 295 [place] [address] Assigned Neuroscience Provider 05/15/23 11/28/24 Ruth Riddle, DPM, Podiatry/Foot and Ankle Surgery [address] [address] Assigned Musculoskeletal Provider 10/22/23 Jignesh Mathias MD [address] [place] [address] 64687 Gastroenterology 09/25/24 Adonay Haq MD [address] [place] [address] [phone] Assigned PCP 10/01/24 12/28/24 Omar Carmona MD [address] [place] [address] 150725 Assigned PCP 12/29/24 Jason Alvares MD [address] [place] [address] [phone] Assigned Neuroscience Provider 12/29/24 Jignesh Mathias MD [address] [place] [address] 99804 Assigned Surgical Provider 12/29/24 Ayad Lopez, PhD LP [address] [place] [address] 759[address] Assigned Behavioral Health Provider 02/28/25 Gavi Nieto PA-C [address] [place] [address] 84758 Physician Paediatrician Dermatology 03/19/25 documented as of this encounter
--- OUTSIDE RECORDS SUMMARY | 2025-06-08 22:54 | XMS_ITS | Encounter Summary ---
Author Organization [place] Address [address] [place] [address] 51171 Care Team Providers Care Typesetting Machine Tender Name Role Phone Rio Jaquez MD Primary Care Provider Barry Kilpatrick MD Unavailable Michelle Henderson I RN Unavailable [phone] Rio Jaquez MD Unavailable +[phone] Jemima Jaramillo MD Unavailable Unavai Kelley Bautista RN Unavailable +[phone] Sydnee Saleem MD Unavailable +[phone] Karlene Moya MD Unavailable +[phone] Wilbert Quintero OD Unavailable +[phone] Rod GauthierM Unavailable +[phone] Jan Mahmood MD Unavailable +[phone] Brandt Quintana MD Unavailable +[phone] Jan Mahmood MD Unavailable +[phone] Rio Jaquez MD Unavailable +[phone] Dom Eason MD Unavailable + [phone] Bulan, Jaimie RN Unavailable Unavailable Marquise Hanley MD Unavailable +-[phone] Vlad Ramey MD Unavailable +-[phone] Joesph Crowe MD Unavailable + [phone] Michelle Padilla RN Unavailable Unavaila ble Marquise Hanley MD Unavailable +-[phone] Wagner Oliver MD Unavailable +[phone] Laura Epperson NP Unavailable +-[phone] Joesph Crowe MD Unavailable +[phone] Joesph Crowe MD Unavailable + [phone] Adonay Haq MD Unavailable +[phone] Denilson Srinivasan MD Unavailable + [phone] Jason Alvares MD Unavailable Ruth RiddleM, Podiatry /Foot and Ankle Surgery Unavailable Omar Carmona MD Primary Care Provider [phone] Jignesh Mathias MD Unavailable Adonay Haq MD Unavailable +[phone] Omar Carmnoa MD Unavailable +[phone] Jason Alvares MD Unavailable Jignesh Mathias MD Unavailable Ayad Lopez PhD LP Unavailable +[phone] Gavi Nieto PA-C Unavailable +[phone] Encounter Details Date Type Department Care Team (Late st Contact Info) Description 04/03/2024 [facility] Clinic [address] [place] [address] Jemima Mederos, RN Social History [...] Answer Date Recorded PHQ-2 Score 2 02/28/2024 [facility] - Occupational Stress Questionnaire [...] Assigned at Female 09/12/2020 12:05 PM ENTRY SPECIALISTS Legal Sex Female 3:26 AM ENTRY SPECIALISTS Gender Identity Female 09/12/2020 12:05 PM [facility] Sexual Orientation Straight 12/19/2021 10 :44 AM CDT Occupation Industry Job Start Date Job End Date on disability for FMS Not on file Not on file Not on file disabled Not on file Not on file Not on file documented as of this encounter Plan of Treatment Upcoming Encounters Date Type Department Care Team (Late st Contact Info) Description 06/13/2025 6:00 PM ENTRY SPECIALISTS Ancillary Procedure [facility] [address] [address] Omar Carmona MD [address] [place] [address] 06/14/2025 4:00 PM EN[facility]ISTS Office Visit [facility] Primary Care [address] [phone] Omar Carmona MD [address] [place] [address] 06/15/2025 12:45 PM [facility] Therapy Visit [facility] [address] [place] [phone] Jason Alvares MD [address] [place] [address] 179865 Chaya Castillo OTR [facility] 150 [place] [address] 06/19/2025 10:30 AM [facility] Virtual Visit [facility] Primary Care [address] [phone] Omar Carmona MD [address] [place] [address] 104085 Gerson Santos [facility] 06/26/2025 11:00 AM [facility] Therapy Visit [facility] [address] [place] [phone] Jason Alvares MD [address] [place] [address] 458065 Ch[facility]illo [facility] 150 [place] [address] 07/09/2025 12:45 PM [facility]ISTS Therapy Visit [facility] [address] [place] [phone] Jason Alvares MD [address] [place] [address], [place] [address] Chaya Castillo, LETA [address] [address] 07/18/2025 3:00 PM [facility] Office Visit [facility] Heart [address] [phone] Adonay Chapman APRN [facility] 500 [place] [address] 11/05/2025 12:30 PM CDT Lab [facility] Lab [address]st [place] [phone] 11/05/2025 1:45 PM CDT Office Visit [facility] Dermatology [address]rd [place] [phone] Gavi Nieto PA-C Dermatology [address] [place] [address] [id number] 11/20/2025 10:30 AM CDT Virtual Visit [address] [address] Marquise Hanley MD [address] [place] [address] 395685 documented as of this encounter Goals Goal [...] documented as of this encounter Care Teams Typesetting Machine Tender Relationship Specialty Start Date End Date Rio Jaquez MD [address] [place] [address] 34934 PCP - General Family Practice 12/02/10 07/13/24 Omar Carmona MD [address] [place] [address] 11870 PCP - General Family Medicine 07/14/24 Barry Kilpatrick MD [address] [place] [address] [id number] [place], [place] [phone] Neurology 07/19/14 Michelle Henderson RN Nurse Coordinator Neurology 07/19/14 Rio Jaquez MD [address] [place] [address] 114195 Family Practice 10/15/14 Jemima Jaramillo MD supervisor leaf spring fabrication 11/20/14 Kelley Chin, TANIA [address] 999265 Nurse Coordinator Cardiology 11/04/15 Sydnee Saleem MD 420 [facility] 508 [place], [place] 248865 Cardiology 11/04/15 Karlene Moya MD [address] [place] [address] 889025 Ophthalmology 06/24/17 Wilbert Quintero, OD 9 [place] [address] Optometry 06/24/17 Rod Gauthier DPM [address] [place] [address] 14[address] Crew Clerk Primary Podiatric Medicine 06/21/18 Jan Mahmood MD [address] [place] [address] Gastroenterology 11/05/20 Brandt Quintana MD [facility] [place] [address] Resident 11/05/20 Jan Mahmood MD [address] [place] [address] 35665 Assigned Gastroenterology Provider 12/01/20 Rio Jaquez MD [address] [place] [address] 22583 Assigned PCP 11/17/20 09/30/24 Dom Eason MD 7 [facility] 353 [place] [address] Internal Medicine 12/02/20 Jaimie Vernon, TANIA Specialty Picker And Packer Cardiology 10/28/21 Marquise Hanley MD [address] [place] [address] Endocrinology, Diabetes, and Metabolism 03/05/22 lVad Ramey MD [address] [place] [address] 28183 Cardiovascular Disease 05/07/22 Joesph Crowe MD [address] [place] [address] 70618 Surgery 05/07/22 Michelle Padilla, RN Specialty Picker And Packer Cardiology 07/03/22 Marquise Hanley MD [address] [place] [address] Assigned Endocrinology Provider 08/15/22 Wagner Oliver MD [address] [place] [address] Critical Care 12/15/22 Laura Epperson NP [address] [place] [address] 1932 [place] [address] Assigned Nephrology Provider 02/20/23 08/30/24 Joesph Crowe MD [address] [place] [address] 87394 Surgery 03/17/23 Joesph Crowe MD [address] [place] [address] 6[address]33 Assigned Surgical Provider 04/03/23 09/30/24 Adonay Haq MD [address] [place] [address] Internal Medicine 06/14/23October, Denilson Jackson MD [address] [place] [address] Assigned Heart and Vascular Provider 05/29/23 11/28/24 Jason Alvares MD 420 [facility] 295 [place] [address] Assigned Neuroscience Provider 05/15/23 11/28/24 Ruth Riddle, DPM, Podiatry/Foot and Ankle Surgery [address] [place] [address] Assigned Musculoskeletal Provider 10/22/23 Jignesh Mathias MD [address] [place] [address] 24[address] Gastroenterology 09/25/24 Adonay Haq MD [address] [place] [address] 941785 Assigned PCP 10/01/24 12/28/24 Omar Carmona MD [address] [place] [address] 984905 Assigned PCP 12/29/24 Jason Alvares MD [address] [place] [address] 295 [place] [address] Assigned Neuroscience Provider 12/29/24 Jignesh Mathias MD [address] [place] [address] 24873 Assigned Surgical Provider 12/29/24 Ayad Lopez, PhD LP [address] [place] [address] 481025 Assigned Behavioral Health Provider 02/28/25 Gavi Nieto PA-C [address] [place] [address] [phone] Physician Marketing Intelligence Analyst Dermatology 03/19/25 documented as of this encounter
--- OUTSIDE RECORDS SUMMARY | 2025-06-08 22:54 | XMS_ITS | Encounter Summary ---
Author Organization [place] Address [address] [place] [address] Care Team Providers Care Special Police Officer Name Role Phone Rio Jaquez MD Primary Care Provider Barry Kilpatrick MD Unavailable Michelle Henderson I RN Unavailable [phone] Rio Jaquez MD Unavailable +[phone] Jemima Jaramillo MD Unavailable Unavai Kelley Bautista RN Unavailable +[phone] Sydnee Saleem MD Unavailable +[phone] aKrlene Moya MD Unavailable +[phone] Wilbert Quintero OD Unavailable +[phone] Rod GauthierM Unavailable +[phone] Jan Mahmood MD Unavailable +[phone] Brandt Quintana MD Unavailable +[phone] Jan Mahmood MD Unavailable +[phone] Rio Jaquez MD Unavailable +[phone] Dom Eason MD Unavailable + [phone] [place], Jaimie RN Unavailable Unavailable Marquise Hanley MD Unavailable +[phone] Vlad Raemy MD Unavailable +[phone] Joesph Crowe MD Unavailable + [phone] Michelle Padilla RN Unavailable Unavaila ble Marquise Hanley MD Unavailable +-[phone] Wagner Oliver MD Unavailable +[phone] Laura Epperson NP Unavailable +[phone] Joesph Crowe MD Unavailable +[phone] Joesph Crowe MD Unavailable + [phone] Adonay Haq MD Unavailable +[phone] Denilson Srinivasan MD Unavailable + [phone] Jason Alvares MD Unavailable Ruth Riddle DPM, Podiatry /Foot and Ankle Surgery Unavailable Omar Carmona MD Primary Care Provider [phone] Jignesh Mathias MD Unavailable Adonay Haq MD Unavailable [phone] Omar Carmona MD Unavailable +[phone] Jason Alvares MD Unavailable Jignesh Mathias MD Unavailable Ayad Lopez PhD LP Unavailable +[phone] Gavi Nieto PA-C Unavailable [phone] Encounter Details Date Type Department Care Team (Late st Contact Info) Description 04/07/2024 [facility] Preoperative Assessment [address] 5th [place] [address] Mickie Mora, RN Social History [...] than three times a week 08/27/2021 Attends Church Services Not on file 08/27 Do you [...] Date Recorded PHQ-2 Score 2 02/28/2024 [facility] Health - Occupational Stress Questionnaire Answer Date [...] Sex Assigned at Female 09/12/2020 12:05 PM HERBARIUM CURATOR Legal Sex Female 3:26 AM HERBARIUM CURATOR Gender Identity Female 09/12/2020 12:05 PM HERBARIUM CURATOR Sexual Orientation Straight 12/19/2021 10 :44 AM CDT Occupation Industry Job Start Date Job End Date on disability for FMS Not on file Not on file Not on file disabled Not on file Not on file Not on file documented as of this encounter Plan of Treatment Upcoming Encounters Date Type Department Care Team (Late st Contact Info) Description 06/13/2025 6:00 PM HERBARIUM CURATOR Ancillary Procedure [facility] [address] [address] Omar Carmona MD [address] [place] [address] 06/14/2025 4:00 PM HERBARIUM CURATOR Office Visit [facility] Primary Care [address] [phone] Omar Carmona MD [address] [place] [address] 06/15/2025 12:45 PM HERBARIUM CURATOR Therapy [facility] 150 [place] [phone] Jason Alvares MD [address] [place] [address] 295 [place], [place] 508705 Chaya Castillo OTR [facility] 150 [place], [place] 649247 06/19/2025 10:30 AM HERBARIUM CURATOR Virtual Visit [facility] Primary Care [address] [phone] Omar Carmona MD [address] [place] [address] [phone] Gerson Santos [facility] 06/26/2025 11:00 AM HERBARIUM CURATOR Therapy Visit [facility] 150 [place] [phone] Jason Alvares MD [address] [place] [address] 295 [place], [place] 672765 Chaya Castillo OTR [facility] [address] [place] [address] 07/09/2025 12:45 PM HERBARIUM CURATOR Therapy Visit [facility] 150 [place] [phone] Jason Alvares MD 420 [facility] 295 [place] [address] Chaya Castillo, LETA [address] [address] 07/18/2025 3:00 PM HERBARIUM CURATOR Office Visit [facility] Heart [address] [phone] Adonay Chapman APRN [facility] 500 [place] [address] 11/05/2025 12:30 PM CDT Lab [facility] Lab [address]st [place] [phone] 11/05/2025 1:45 PM CDT Office Visit [facility] Dermatology [address]rd [place] [phone] aGvi Nieto PA-C Dermatology [address] [place] [address] [phone] 11/20/2025 10:30 AM CDT Virtual Visit [address] [address] Marquise Hanley MD [address] [place] [address] documented as of this encounter Goals Goal [...] documented as of this encounter Care Teams Special Police Officer Relationship Specialty Start Date End Date Rio Jaquez MD [address] [place] [address] 4 [place] [address] PCP - General Family Practice 12/02/10 07/13/24 Omar Carmona MD [address] [place] [address]21 PCP - General Family Medicine 07/14/24 Barry Kilpatrick MD [address] [place] [address] [id number] [place] [address] Neurology 07/19/14 Michelle Henderson I, TANIA Nurse Coordinator Neurology 07/19/14 Rio Jaquez MD [address] [place] [address]50 Family Practice 10/15/14 Jemima Jaramillo MD public works supervisor 11/20/14 Kelley Chin, TANIA [address] [address] Nurse Coordinator Cardiology 11/04/15 Sydnee Saleem MD [address] [place] [address] 508 [place], [place] 875425 Cardiology 11/04/15 Karlene Moya MD [address] [place] [address] 016625 Ophthalmology 06/24/17 Wilbert Quintero OD 909 [place] [address] Optometry 06/24/17 Rod Gauthier DPM 9 [place] [address] Client Services Manager Primary Podiatric Medicine 06/21/18 Jan Mahmood MD 6 [facility] 2A [place], [place] 717435 Gastroenterology 11/05/20 [place] [address] [place] [address] Resident 11/05/20 Jan Mahmood MD 6 [facility] 2A [place] [address] Assigned Gastroenterology Provider 12/01/20 Rio Jaquez MD 9 [facility] 4 [place] [address] Assigned PCP 11/17/20 09/30/24 Dom Eason MD 7 [facility] 353 [place] [address] Internal Medicine 12/02/20 Jaimie Vernon, RN Specialty Medical Technical Writer Cardiology 10/28/21 Marquise Hanley MD [address] [place] [address] 093945 Endocrinology, Diabetes, and Metabolism 03/05/22 Vlad Ramey MD [address] [place] [address] 46013 Cardiovascular Disease 05/07/22 Joesph Crowe MD [address] [place] [address]299 Surgery 05/07/22 Michelle Padilla, RN Specialty Medical Technical Writer Cardiology 07/03/22 Marquise Hanley MD [address] [place] [address] Assigned Endocrinology Provider 08/15/22 Wagner Oliver MD [address] [place] [address] Critical Care 12/15/22 Laura Epperson NP [address] [place], [place] 23[address] [place] [address] Assigned Nephrology Provider 02/20/23 08/30/24 Joesph Crowe MD [address] [place] [address]686 Surgery 03/17/23 Joesph Crowe MD [address] [place] [address]10 Assigned Surgical Provider 04/03/23 09/30/24 Adonay Haq MD [address] [place] [address]10 Internal Medicine 06/14/23October, Denilson Jackson MD [address] [place] [address] Assigned Heart and Vascular Provider 05/29/23 11/28/24 Jason Alvares MD 420 [facility] 295 [place] [address] Assigned Neuroscience Provider 05/15/23 11/28/24 Ruth Riddle DPM, Podiatry/Foot and Ankle Surgery [address] [place] [address] Assigned Musculoskeletal Provider 10/22/23 Jignesh Mathias MD [address] [place] [address] Gastroenterology 09/25/24 Adonay Haq MD [address] [place] [address] 879015 Assigned PCP 10/01/24 12/28/24 Omar Carmona MD [address] [place] [address] Assigned PCP 12/29/24 Jason Alvares MD [address] [place] [address] Assigned Neuroscience Provider 12/29/24 Jignesh Mathias MD [address] [place] [address]15 Assigned Surgical Provider 12/29/24 Ayad Lopez, PhD LP [address] [place] [address] 484525 Assigned Behavioral Health Provider 02/28/25 Gavi Nieto PA-C [address] [place] [address] 502665 Physician Web Application Tester Dermatology 03/19/25 documented as of this encounter
--- OUTSIDE RECORDS SUMMARY | 2025-06-08 22:54 | XMS_ITS | Encounter Summary ---
Author Organization [place] Address [address] [place] [address] Care Team Providers Care Waterproof Coating Machine Tender Name Role Phone Rio Jaquez MD Primary Care Provider + [phone] Barry Kilpatrick MD Unavailable Michelle Henderson RN Unavailable +[phone] Rio Jaquez MD Unavailable +[phone] Jemima Jaramillo MD Unavailable Unavai Kelley Bautista RN Unavailable +[phone] Sydnee Saleem MD Unavailable +[phone] Karlene Moya MD Unavailable +[phone] Wilbert Quintero OD Unavailable +[phone] Rod Gauthier DPM Unavailable +[phone] Nallely Hogue RN Unavailable Unavailable Jan Mahmood MD Unavailable +[phone] Brandt Quintana MD Unavailable +[phone] Jan Mahmood MD Unavailable +[phone] Rio Jaquez MD Unavailable +[phone] Dom Eason MD Unavailable +[phone] Jayla Plaza RN Unavailable +[phone] Sydnee [...] Unavailable +[phone] Dom Eason MD Unavailable +[phone] Wagner Oliver MD Unavailable +[phone] Laura Epperson NP Unavailable +-[phone] Thom Taveras MD Unavailable +[phone] Joesph Crowe MD Unavailable + [phone] Joesph Crowe MD Unavailable + [phone] Adonay Haq MD Unavailable +[phone] Denilson Srinivasan MD Unavailable + [phone] Jason Alvares MD Unavailable Ruth Riddle DPM, Podiatry /Foot and Ankle Surgery Unavailable Omar Carmona MD Primary Care Provider +1- Jignesh Mathias MD Unavailable Adonay Haq MD Unavailable +1- Omar Carmona MD Unavailable +[phone] Jason Alvares MD Unavailable Jignesh Mathias MD Unavailable Ayad Lopez PhD Unavailable +[phone] Gavi Nieto-C Unavailable +[phone] Encounter Details Date Type Department Care Team (Late st Contact Info) Description 03/26/2022 MyC Medical Advice [facility] [address] 4th [place] [address] Rio Jaquez MD [address] [place] [address] 4 [place] [address] Social History Tobacco Use Types [...] Answer Date Recorded PHQ-2 Score 1 02/16/2022 [facility] - Occupational Stress Questionnaire Answer [...] Sex Assigned at Female 09/12/2020 12:05 PM PACKAGING MANAGER Legal Sex Female 3:26 AM PACKAGING MANAGER Gender Identity Female 09/12/2020 12:05 PM PACKAGING MANAGER Sexual Orientation Straight 12/19/2021 10 :44 [...] st Contact Info) Description 06/13/2025 6:00 PM PACKAGING MANAGER Ancillary Procedure [facility] [address]st [place] [address] Omar Carmona MD [address] [place] [address] [id number] 06/14/2025 4:00 PM PACKAGING MANAGER Office Visit [facility] [address] 4th [place] [address] Omar Carmona MD [address] [place] [address] [id number] 06/15/2025 12:45 PM PACKAGING MANAGER Therapy Visit [facility] [address] [phone] Jason Alvares MD [address] [place] [address] Chaya Castillo OTR [facility] [address] [place] [address] 06/19/2025 10:30 AM PACKAGING MANAGER Virtual Visit [facility] [address] [place] [address] 4th [place] [phone] Omar Carmona MD [address] [place] [address] 745225 Gerson Santos, [facility] 06/26/2025 11:00 AM PACKAGING MANAGER Therapy Visit [facility] 150 [place] [phone] Jason Alvares MD [address] [place] [address] [phone] Chaya Castillo OTR [facility] [address] [place] [address] 07/09/2025 12:45 PM PACKAGING MANAGER Therapy Visit [facility] [address] [place] [phone] Jason Alvares MD [address] [place] [address] [phone] Chaya Castillo OTR [facility] [address] [place] [address] 07/18/2025 3:00 PM PACKAGING MANAGER Office Visit [facility] [address] [phone] Adonay Chapman APRN [address] 038155 11/05/2025 12:30 PM CDT Lab [facility] [address] 1st [place] [phone] 11/05/2025 1:45 PM CDT Office Visit [facility] [address] 3rd [place] [phone] Gavi Nieto PA-C Dermatology [address] [place] [address] 9[address] 11/20/2025 10:30 AM CDT Virtual Visit [address] [address] Marquise Hanley MD [address] [place] [address] 018395 documented as of this encounter Goals Goal [...] documented as of this encounter Care Teams Waterproof Coating Machine Tender Relationship Specialty Start Date End Date Rio Jaquez MD [address] [place] [address] 46584 PCP - General Family Practice 12/02/10 07/13/24 Omar Carmona MD [address] [place] [address] [phone] PCP - General Family Medicine 07/14/24 Barry Kilpatrick MD [address] [place] [address] [id number] [place], [place] 763925 Neurology 07/19/14 Michelle Henderson RN Nurse Coordinator Neurology 07/19/14 Rio Jaquez MD [address] [place] [address] [place] 4 [place], [place] 456895 Family Practice 10/15/14 Jemima Jaramillo MD commissions analyst 11/20/14 Kelley Chin RN [address] 800235 Nurse Coordinator Cardiology 11/04/15 Sydnee Saleem MD 420 [facility] [address] [place], [place] 684005 Cardiology 11/04/15 Karlene Moya MD [address] [place] [address] 596295 Ophthalmology 06/24/17 Wilbert Quintero, OD [address] [place] [address] 717835 Optometry 06/24/17 Rod Gauthier, STANISLAWM [address] [place] [address] 027355 Cyanide Furnace Operator Primary Podiatric Medicine 06/21/18 Nallely Hogue, RN Registered Nurse 02/20/19 11/23/22 Jan Mahmood MD 516 [facility] 2[address] [place] [address] Gastroenterology 11/05/20 Brandt Quintana MD 1414 [place] [address] Resident 11/05/20 Jan Mahmood MD 516 [facility] [address] [place] [address] Assigned Gastroenterology Provider 12/01/20 Rio Jaquez MD 909 [facility] 4 [place] [address] Assigned PCP 11/17/20 09/30/24 Dom Eason MD [address] [place] [address] 353 [place] [address] Internal Medicine 12/02/20 Jayla Plaza RN Specialty Community Affairs Director Hepatology 01/09/21 02/13/24 Sydnee Saleem MD [address] [phone] Assigned Heart and Vascular Provider 02/02/21 07/24/22 Jaimie Vernon, TANIA Specialty Community Affairs Director Cardiology 10/28/21 Ruth Riddle DPM, Podiatry/Foot and Ankle Surgery 45048 [facility] [address] [place] [address] Assigned Musculoskeletal Provider 11/30/21 09/30/23 Jason Alvares MD [address] [place] [address]35 Assigned Neuroscience Provider 01/03/22 05/15/22 Marquise Hanley MD [address] [place] [address] 71606 Endocrinology, Diabetes, and Metabolism 03/05/22 Vlad Ramey MD [address] [place] [address] [phone] Cardiovascular Disease 05/07/22 Joesph Crowe MD [address] [place] [address] 6[address] Surgery 05/07/22 Luis Arrington MD [address] [place] [address] 29146 Assigned Neuroscience Provider 05/16/22 05/14/23 Michelle Padilla RN Specialty Community Affairs Director Cardiology 07/03/22 Vlad Ramey MD [address] [place] [address] 40501 Assigned Heart and Vascular Provider 07/25/22 05/28/23 Marquise Hanley MD [address] [place] [address] 95703 Assigned Endocrinology Provider 08/15/22 Dom Eason MD [address] [place] [address] 07687 Assigned Nephrology Provider 11/28/22 02/19/23 Wagner Oliver MD [address] [address] Critical Care 12/15/22 Laura Epperson NP 717 [facility] [address] [place] [address] Assigned Nephrology Provider 02/20/23 08/30/24 Thom Taveras MD [address] [place], [place] 4100605 [place] [address] Assigned Cancer Care Provider 02/06/23 08/20/23 Joesph Crowe MD [address] [place] [address] 30225 Surgery 03/17/23 Joesph Crowe MD [address] [place] [address] 01052 Assigned Surgical Provider 04/03/23 09/30/24 Adonay Haq MD [address] [place] [address]73 Internal Medicine 06/14/23OctoberDenilson MD [address] [facility] [address] [place] [address] Assigned Heart and Vascular Provider 05/29/23 11/28/24 Jason Alvarse MD [address] [place] [address] 295 [place] [address] Assigned Neuroscience Provider 05/15/23 11/28/24 Ruth Riddle DPM, Podiatry/Foot and Ankle Surgery [address] [place] [address] Assigned Musculoskeletal Provider 10/22/23 Jignesh Mathias MD [address] [place] [address] 63489 Gastroenterology 09/25/24 Adonay Haq MD [address] [place] [address] 98921 Assigned PCP 10/01/24 12/28/24 Omar Carmona MD [address] [place] [address] 01851 Assigned PCP 12/29/24 Jason Alvares MD [address] [place] [address] 86484 Assigned Neuroscience Provider 12/29/24 Jignesh Mathias MD [address] [place] [address] 68007 Assigned Surgical Provider 12/29/24 Ayad Lopez, PhD LP [address] [place] [address] 012855 Assigned Behavioral Health Provider 02/28/25 Gavi Nieto, PA-C [address] [place] [address]187 Physician Glass Forming Engineer Dermatology 03/19/25 documented as of this encounter
--- OUTSIDE RECORDS SUMMARY | 2025-06-08 22:54 | XMS_ITS | Encounter Summary ---
Author Organization [place] Address [address] [place] [address]95 Care Team Providers Care Ranch Cook Name Role Phone Rio Jaquez MD Primary Care Provider Barry Kilpatrick MD Unavailable Michelle Henderson I RN Unavailable [phone] Rio Jaquez MD Unavailable +[phone] Jemima Jaramillo MD Unavailable Unavai Kelley Bautista RN Unavailable +[phone] Sydnee Saleem MD Unavailable +[phone] Karlene Moya MD Unavailable +[phone] Wilbert Quintero OD Unavailable +[phone] Rod GauthierM Unavailable +[phone] Jan Mahmood MD Unavailable +[phone] Brandt Quintana MD Unavailable Jan Mahmood MD Unavailable +[phone] Rio Jaquez MD Unavailable +[phone] Dom Eason MD Unavailable + [phone] [place], Jaimie RN Unavailable Unavailable Marquise Hanley MD Unavailable +[phone] Vlad Ramey MD Unavailable +[phone] Joesph Crowe MD Unavailable + [phone] Michelle Padilla RN Unavailable Unavaila ble Marquise Hanley MD Unavailable +[phone] Wagner Oliver MD Unavailable +[phone] Laura Epperson NP Unavailable +[phone] Joesph Crowe MD Unavailable + [phone] Joesph Crowe MD Unavailable + [phone] Adonay Haq MD Unavailable [phone] OctoberDenilson MD Unavailable +[phone] Jason Alvares MD Unavailable Ruth Riddle DPM, Podiatry /Foot and Ankle Surgery Unavailable Omar Carmona MD Primary Care Provider [phone] Jignesh Mathias MD Unavailable Adonay Haq MD Unavailable [phone] Omar Carmona MD Unavailable [phone] Jason Alvares MD Unavailable Jignesh Mathias MD Unavailable Ayad Lopez PhD LP Unavailable +[phone] Gavi Nieto PA-C Unavailable +[phone] Encounter Details Date Type Department Care Team (Late st Contact Info) Description 05/12/2024 [facility] Heart [address] [address] Vlad Ramey MD [address] [place] [address] Social History Tobacco Use Types Packs/Day [...] Answer Date Recorded PHQ-2 Score 2 02/28/2024 [facility] - Occupational Stress Questionnaire Answer Date [...] st Contact Info) Description 06/13/2025 6:00 PM STOVE INSTALLER Ancillary Procedure [facility] CT Clinic [address] [phone] Omar Carmona MD [address] [place] [address] 06/14/2025 4:00 PM STOVE INSTALLER Office Visit [facility] [address] [phone] Omar Carmona MD [address] [place] [address] 06/15/2025 12:45 PM STOVE INSTALLER Therapy Visit [facility] [address] [place] [phone] Jason Alvares MD [address] [place] [address] Chaya Castillo, OTR [facility] 150 [place], [place] 339567 06/19/2025 10:30 AM STOVE INSTALLER Virtual Visit [facility] [address] [phone] Omar Carmona MD [address] [place] [address] Gerson Santos [facility] 06/26/2025 11:00 AM STOVE INSTALLER Therapy [facility] [place] [phone] Jason Alvares MD [address] [place] [address] [phone] Chaya Castillo, OTR [facility] 150 [place] [address] 07/09/2025 12:45 PM STOVE INSTALLER Therapy Visit [facility] [address] [place] [address] Jason Alvares MD 420 [facility] [address] [place] [address] Chaya Castillo, OTR [facility] 150 [place] [address] 07/18/2025 3:00 PM STOVE INSTALLER Office Visit [facility] [address] [phone] Adonay Chapman APRN [facility] [address] [place], [place] 864355 11/05/2025 12:30 PM CDT Lab [facility] [address]st [place] [phone] 11/05/2025 1:45 PM CDT Office Visit [facility] Dermatology [address] [phone] Gavi Nieto PA-C Dermatology [address] [place] [address] 28593 11/20/2025 10:30 AM CDT Virtual Visit [address] [address] Marquise Hanley MD [address] [place] [address] 96377 documented as of this encounter Goals Goal [...] documented as of this encounter Care Teams Ranch Cook Relationship Specialty Start Date End Date Rio Jaquez MD [address] [place] [address] 4 [place] [address] PCP - General Family Practice 12/02/10 07/13/24 Omar Carmona MD [address] [place] [address] 263015 PCP - General Family Medicine 07/14/24 Barry Kilpatrick MD [address] [place] [address] [id number] [place] 414415 Neurology 07/19/14 Michelle Henderson I, RN Nurse Coordinator Neurology 07/19/14 Rio Jaquez MD [address] [place] [address] 274455 Family Practice 10/15/14 Jemima Jaramillo MD wire temperer 11/20/14 Kelley Chin, TANIA [address] 226875 Nurse Coordinator Cardiology 11/04/15 Sydnee Saleem MD [address] [place] [address] 508 [place], [place] [phone] Cardiology 11/04/15 Karlene Moya MD [address] [place] [address] Ophthalmology 06/24/17 Wilbert Quintero OD 9 [place], [place] 199355 Optometry 06/24/17 Rod Gauthier DPM [address] [place] [address] 239355 Anesthesiology Medical Doctor Primary Podiatric Medicine 06/21/18 Jan Mahmood MD [address] [phone] Gastroenterology 11/05/20 Brandt Quintana MD [address] [place] [address] Resident 11/05/20 Jan Mahmood MD [address] 176055 Assigned Gastroenterology Provider 12/01/20 Rio Jaquez MD [address] 895325 Assigned PCP 11/17/20 09/30/24 Dom Eason MD [address] 524174 Internal Medicine 12/02/20 Jaimie Vernon, RN Specialty Hot Saw Helper Cardiology 10/28/21 Marquise Hanley MD [address] [place] [address] [phone] Endocrinology, Diabetes, and Metabolism 03/05/22 Vlad Ramey MD [address] [place] [address] 21120 Cardiovascular Disease 05/07/22 Joesph Crowe MD [address] [place] [address] 99449 Surgery 05/07/22 Michelle Padilla, RN Specialty Hot Saw Helper Cardiology 07/03/22 Marquise Hanley MD [address] [place] [address] 48564 Assigned Endocrinology Provider 08/15/22 Wagner Oliver MD [address] [place] [address] Critical Care 12/15/22 Laura Epperson NP [address] [place], [place] [address] [place] [address] Assigned Nephrology Provider 02/20/23 08/30/24 Joesph Crowe MD [address] [place] [address] 51864 Surgery 03/17/23 Joesph Crowe MD [address] [place] [address] 96177 Assigned Surgical Provider 04/03/23 09/30/24 Adonay Haq MD [address] [place] [address] 14935 Internal Medicine 06/14/23OctoberDenilson MD [address] [address] [place] [address] Assigned Heart and Vascular Provider 05/29/23 11/28/24 Jason Alvares MD [address] [place] [address] 89745 Assigned Neuroscience Provider 05/15/23 11/28/24 Ruth Riddle DPM, Podiatry/Foot and Ankle Surgery [address] [place] [address] Assigned Musculoskeletal Provider 10/22/23 Jignesh Mathias MD [address] [place] [address] 81955 Gastroenterology 09/25/24 Adonay Haq MD [address] [place] [address] 17071 Assigned PCP 10/01/24 12/28/24 Omar Carmona MD [address] [place] [address] 57936 Assigned PCP 12/29/24 Jason Alvares MD [address] [place] [address] 05722 Assigned Neuroscience Provider 12/29/24 Jignesh Mathias MD [address] [place] [address] 40577 Assigned Surgical Provider 12/29/24 Ayad Lopez, PhD LP [address] [place] [address] Assigned Behavioral Health Provider 02/28/25 Gavi Nieto PA-C [address] [place] [address]455 Physician Data Governance Analyst Dermatology 03/19/25 documented as of this encounter
--- OUTSIDE RECORDS SUMMARY | 2025-06-08 22:54 | XMS_ITS | Encounter Summary ---
Author Organization [facility] Address [address] [place] [address] Care Team Providers Care Edge Grinder Machine Name Role Phone Rio Jaquez MD Primary Care Provider Barry Kilpatrick MD Unavailable Michelle Henderson RN Unavailable [phone] Rio Jaquez MD Unavailable [phone] Jemima Jaramillo MD Unavailable Unavai Kelley Bautista RN Unavailable [phone] Sydnee Saleem MD Unavailable [phone] Karlene Moya MD Unavailable [phone] Wilbert Quintero OD Unavailable [phone] Rod Gauthier DPM Unavailable [phone] Nallely Hogue RN Unavailable Unavailable Larisa Vargas RN Unavailable Unavailable Francisco Lott MD Unavailable [phone] Greg Ortega MD Unavailable [phone] Jan Mahmood MD Unavailable [phone] Brandt Quintana MD Unavailable [phone] Jan Mahmood MD Unavailable Rio Jaquez [...] MD Unavailable Joesph Crowe MD Unavailable [phone] Joesph Crowe MD Unavailable [phone] Adonay Haq MD Unavailable [phone] Denilson Srinivasan MD Unavailable [phone] Jason Alvares MD Unavailable Ruth RiddleM, Podiatry /Foot and Ankle Surgery Unavailable Omar Carmona MD Primary Care Provider Jignesh Mathias MD Unavailable Adonay Haq MD Unavailable [phone] Omar Carmona MD Unavailable Jason Alvares MD Unavailable Jignesh Mathias MD Unavailable Ayad Lopez PhD LP Unavailable [phone] Gavi Nieto-C Unavailable [phone] Encounter Details Date Type Department Care Team (Late st Contact Info) Description 08/05/2021 [facility] Medical Advice [facility] [address] [phone] Phan Coello MD Social History [...] Sex Assigned at Female 09/12/2020 12:05 PM GROUTMAN Legal Sex Female 3:26 AM GROUTMAN Gender Identity Female 09/12/2020 12:05 PM GROUTMAN Sexual Orientation Straight 12/19/2021 10 :44 AM CDT Occupation Industry Job Start Date Job End Date on disability for FMS Not on file Not on file Not on file COVID-19 Exposure Response Date Recorded In the last month, have you been in contact with someone who was confirmed or suspected to have Coronavirus / COVID-19? No / Unsure 07/28/2021 12:39 PM GROUTMAN documented as of this encounter Plan of Treatment Upcoming Encounters Date Type Department Care Team (Late st Contact Info) Description 06/13/2025 6:00 PM GROUTMAN Ancillary Procedure [facility] [address] [phone] Omar Carmona MD [address] [place] [address] [id number] 06/14/2025 4:00 PM GROUTMAN Office Visit [facility] [address] [phone] Omar Carmona MD [address] [place] [address] 612375 06/15/2025 12:45 PM GROUTMAN Therapy Visit [facility] [address] [place] [phone] Jason Alvares MD 420 [facility] [address] [place], [place] [phone] Chaya Castillo, OTR [facility] [address] [place], [place] 2554[address] 06/19/2025 10:30 AM GROUTMAN Virtual Visit [facility] [address] [phone] Omar Carmona MD [address] [place] [address] [id number] Gerson Santos RPH 06/26/2025 11:00 AM GROUTMAN Therapy Visit [facility] [address] [place] [address] Jason Alvares MD [address] [place] [address] Chaya Castillo OTR [address] [address] 07/09/2025 12:45 PM GROUTMAN Therapy Visit [facility] [address] [phone] Jason Alvares MD [address] [place] [address] Chaya Castillo OTR [address] [address] 07/18/2025 3:00 PM GROUTMAN Office Visit [facility] [address] [phone] Adonay Chapman APRN [address] [phone] 11/05/2025 12:[address] [facility] [address] [phone] 11/05/2025 1:45 [address]T Office [address] [facility] Dermatology [address] [place] [phone] Gavi Nieto PA-C Dermatology [address] [place] [address] 11/20/2025 10:30 AM CDT Virtual Visit [address] [phone] Marquise Hanley MD [address] [place] [address] documented as of this encounter Goals Goal [...] Depression Total Score: 12 021 9:43 AM GROUTMAN documented as of this encounter Care Teams Edge Grinder Machine Relationship Specialty Start Date End Date Rio Jaquez MD [address] [place] [address] PCP - General Family Practice 12/02/10 07/13/24 Omar Carmona MD [address] [place] [address] PCP - General Family Medicine 07/14/24 Barry Kilpatrick MD [address] [place] [address] [id number] [place] [address] Neurology 07/19/14 Michelle Henderson I, RN Nurse Coordinator Neurology 07/19/14 Rio Jaquez MD [address] [place] [address] Family Practice 10/15/14 Jemima Jaramillo MD oil developer 11/20/14 Kelley Chin, [facility] [address] [place], [place] [address] Nurse Coordinator Cardiology 11/04/15 Sydnee Saleem MD [address] [place] [address] [address] [place] [address] Cardiology 11/04/15 Karlene Moya MD [address] [place] [address] Ophthalmology 06/24/17 Wilbert Quintero, OD [address] [place] [address] Optometry 06/24/17 Rod Gauthier DPM [address] [place], [place] [phone] Company Controller Primary Podiatric Medicine 06/21/18 Nallely Hogue, [facility] Registered Nurse 02/20/19 11/23/22 Larisa Vargas, [facility] Specialty Unit Leader Cardiology 04/18/19 03/06/22 Francisco Lott MD [address] [place] [address] 88 [place] [address] Assigned Rheumatology Provider 05/31/20 12/13/21 Greg Ortega MD [address] [place] [address] Assigned Surgical Provider 06/23/20 12/06/21 Jan Mahmood MD [address] [place] [address] [address] [place], [place] 7[address] Gastroenterology 11/05/20 Brandt Quintana MD [address] [place] [address] Resident 11/05/20 Jan Mahmood MD [address] [facility] [address] [place] [address] Assigned Gastroenterology Provider 12/01/20 Rio Jaquez MD [address]09 [facility] [place] [address] [place], [place] 934[address] Assigned PCP 11/17/20 09/30/24 Dom Eason MD [address] [place] [address] 353 [place] [address] Internal Medicine 12/02/20 Jayla Plaza, RN Specialty Unit Leader Hepatology 01/09/21 02/13/24 [place]nee [place] [address] [address] Assigned Heart and Vascular Provider 02/02/21 07/24/22 Phan Coello MD Assigned Neuroscience Provider 02/21/21 11/22/21 [place] [address] [place] [address] Assigned Infectious Disease Provider 02/21/21 03/06/22 Dom Eason MD [address] [place] [address] [address] [place] [address] Assigned Nephrology Provider 04/20/21 01/02/22 Jaimie Vernon, RN Specialty Unit Leader Cardiology 10/28/21 Ruth Riddle DPM, Podiatry/Foot and Ankle Surgery [address] [place] [address] Assigned Musculoskeletal Provider 11/30/21 09/30/23 Luis Arrington MD [address] [place] [address] Assigned Neuroscience Provider 11/23/21 01/02/22 Jason Alvares MD [address] [place] [address] Assigned Neuroscience Provider 01/03/22 05/15/22 Marquise Hanley MD [address] [place] [address] Endocrinology, Diabetes, and Metabolism 03/05/22 Vlad Ramey MD [address] [place] [address] Cardiovascular Disease 05/07/22 Joesph Crowe MD [address] [place] [address] Surgery 05/07/22 Luis Arrington MD [address] [place] [address] Assigned Neuroscience Provider 05/16/22 05/14/23 Michelle Padilla RN Specialty Unit Leader Cardiology 07/03/22 Vlad Ramey MD 9[address] [place] [address] Assigned Heart and Vascular Provider 07/25/22 05/28/23 Marquise Hanley MD [address] [place] [address] Assigned Endocrinology Provider 08/15/22 Dom Eason MD [address] [facility] [address] [place] [address] Assigned Nephrology Provider 11/28/22 02/19/23 Wagner Oliver MD [address] [place] [address] Critical Care 12/15/22 Laura Epperson NP 7 [facility] [address] [place] [address] Assigned Nephrology Provider 02/20/23 08/30/24 Thom Taveras MD [address] [place] [address] Assigned Cancer Care Provider 02/06/23 08/20/23 Joesph Crowe MD [address] [place] [address] Surgery 03/17/23 Joesph Crowe MD [address] [place] [address] Assigned Surgical Provider 04/03/23 09/30/24 Adonay Haq MD [address] [place] [address] Internal Medicine 06/14/23 Denilson Srinivasan MD [address] [place] [address] Assigned Heart and Vascular Provider 05/29/23 11/28/24 Jason Alvares MD [address] 725375 Assigned Neuroscience Provider 05/15/23 11/28/24 Ruth Riddle DPM, Podiatry/Foot and Ankle Surgery [address] [place] [address] Assigned Musculoskeletal Provider 10/22/23 Jignesh Mathias MD [address] [place] [address] [phone] Gastroenterology 09/25/24 Adonay Haq MD [address] [place] [address] Assigned PCP 10/01/24 12/28/24 Omar Carmona MD [address] [place] [address] Assigned PCP 12/29/24 Jason Alvares MD [address] [phone] Assigned Neuroscience Provider 12/29/24 Jignesh Mathias MD [address] [place] [address] [id number] Assigned Surgical Provider 12/29/24 Ayad Lopez, PhD LP [address] [place] [address] 923655 Assigned Behavioral Health Provider 02/28/25 Gavi Nieto PA-C [address] [place] [address] [phone] Physician Medical Billing And Coding Specialist Dermatology 03/19/25 documented as of this encounter
--- OUTSIDE RECORDS SUMMARY | 2025-06-08 22:55 | XMS_ITS | Clinical Summary ---
Author Organization [facility] Address [address] [place] [address] Care Team Providers Care Embroidery Machine Operator Name Role Phone Barry Kilpatrick MD Unavailable Michelle Henderson RN Unavailable [phone] Rio Jaquez MD Unavailable [phone] Jemima Jaramillo MD Unavailable Unavai Kelley aButista RN Unavailable [phone] Sydnee Saleem MD Unavailable [phone] Karlene Moya MD Unavailable [phone] Wilbert Quintero OD Unavailable [phone] Rod Gauthier DPM Unavailable [phone] Jan Mahmood MD Unavailable [phone] Brandt Quintana MD Unavailable Jan Mahmood MD Unavailable [phone] Dom Eason MD Unavailable [phone] Jaimie Vernon RN Unavailable Unavailable Marquise Hanley MD Unavailable [phone] Vlad Ramey MD Unavailable [phone] Joesph Crowe MD Unavailable Michelle Padilla RN Unavailable Unavaila ble Marquise Hanley MD Unavailable [phone] Wagner Oliver MD Unavailable [phone] Joesph Crowe MD Unavailable Adonay Haq MD Unavailable [phone] Ruth RiddleM, Podiatry /Foot and Ankle Surgery Unavailable Omar Carmona MD Primary Care Provider [phone] Jignesh Mathias MD Unavailable Omar Carmona MD Unavailable Jason Alvares MD Unavailable Jignesh Mathias MD Unavailable Ayad Lopez PhD LP Unavailable [phone] Gavi Nieto-Keisha Unavailable [phone] Allergies Active Allergy Reactions Criticality Noted Date [...] daily. 180 tablet 3 12/05/19 25 Active pregabalin (LYRICA) 50 MG capsuleIndications [...] daily. 180 tablet 3 03/08/20 25 Active ferrous gluconate (FERGON) 324 (38 Fe) MG tabletIndications: Alcoholic cirrhosis of liver without ascites (H) Take 1 tablet (324 mg) by mouth daily (with breakfast). With a 500 mg vitamin C 90 tablet 3 04/10/20 25 Active ciclopirox (LOPROX) 0.77 % creamIndications:F oot pain, bilateral,Hammerto e of left foot,Callus of foot,Onychomycosis of toenail,Idiopathic peripheral neuropathy,Congeni tatianna bilateral pes cavus Apply topically daily. 30 g 6 04/25/20 25 Active albuterol (PROAIR HFA/PROVENTIL HFA/VENTOLIN HFA) 108 (90 Base) MCG/ACT inhaler Inhale 2 puffs into the lungs every 6 hours as needed for wheezing. 12/20/19 25 Active Active Problems Problem Noted Date Diagnosed [...] (12/20/2020): Added automatically from request for surgery [id number] Metabolic encephalopathy 11/28/2020 Other cirrhosis of liver 11/28/2020 Acute on chronic diastolic heart failure 021 Primary insomnia 11/07/2020 Mixed anxiety and depressive disorder 11/07/2020 S/P tooth extraction 11/07/2020 Other lipodystrophy, not elsewhere classified Diffuse connective tissue disease 10/11/2018 Folate deficiency 10/11/2018 Vitamin B12 deficiency (non anemic) 10/11/2018 Mediastinal lymphadenopathy 07/21/2016 Patient is followed by the [facility] 11/04/2015 Overview (04/02/2019): For urgent after hours needs, please call [phone] and ask to speak with the Adult [facility] 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 6 Sensory ganglionopathy 02/26/2015 [...] 11/07/2020 12/06/2023 Multiple joint pain 07/02/2020 12/06/19 Generalized muscle weakness 07/02/2020 12/06/2023 Tinea corporis [...] Encounters Date Type Department Care Team Description 06/08/2025 9:00 AM CDT Office Visit [facility] [address] [phone] Jignesh Mathias MD Alcoholic cirrhosis of liver without ascites (H) (Primary Dx) 06/07/2025 9:30 AM CDT Ancillary Procedure [facility] [address] 1st [place] [address] Jignesh Mathias MD Alcoholic cirrhosis of liver without ascites (H) 06/07/2025 Travel 06/06/2025 Results Follow-Up [facility] [address] [phone] Jignesh Mathias MD Subj: Message about your results 06/05/2025 4:15 PM CDT Lab [facility] [address] [place] [phone] Alcoholic cirrhosis of liver without ascites (H); Vitamin B1 deficiency 06/05/2025 3:00 PM CDT Therapy Visit [address] [phone] Jason Alvares MD Peterson, Megan A, OTR Seizures, post-traumatic (H) (Primary Dx) 06/05/2025 Travel 05/31/2025 Travel 05/28/2025 10:15 AM CDT Virtual Visit [address] [phone] Omar Carmona MD Peterson, Megan A, OTR Seizures, post-traumatic (H) (Primary Dx) 05/28/2025 MyC Medical Advice [facility] [address] [phone] Jignesh Mathias MD Alcoholic cirrhosis of liver without ascites (H) (Primary Dx) 05/28/2025 MyC Medical Advice [address] [phone] Chaya Castillo, OTR 05/27/2025 Travel 05/16/2025 11:00 AM CDT Therapy Visit [address] [phone] Jason Alvares MD Peterson, Megan A, OTR Seizures, post-traumatic (H) (Primary Dx) 05/16/2025 Results Follow-Up [facility] [address] [phone] Omar Carmona MD Subj: Message about your results 05/15/2025 12:30 PM CDT Office Visit [address] [place] [address] [phone] Marquise Hanley MD Compression fracture of T12 vertebra, sequela (Primary Dx); Osteoporotic compression fracture of spine, with routine healing, subsequent encounter; Age-related osteoporosis with current pathological fracture, vertebra(e), initial encounter for fracture (H); Vitamin B1 deficiency 05/15/2025 Travel 05/14/2025 Travel 05/11/2025 9:30 AM CDT Therapy Visit [facility] [address] [phone] Jason Alvares MD Peterson, Megan A, OTR Seizures, post-traumatic (H) (Primary Dx) 05/11/2025 Travel 05/09/2025 MyC Medical Advice [facility] [address] [phone] Omar Carmona MD 05/07/2025 Travel 05/03/2025 4:00 PM CDT Office Visit [facility] [address] [phone] Omar Carmona MD CKD (chronic kidney disease) stage 2, GFR 60-89 ml/min (Primary Dx); Screening for cardiovascular condition; Hyperlipidemia, unspecified hyperlipidemia type; Vitamin B1 deficiency; Low vitamin D level; Acquired hypothyroidism; Encounter for smoking cessation counseling; Smoker 05/03/2025 Travel 05/03/2025 MyC Medical Advice [facility] [address] [phone] Andrews Dixon, TERESITA 05/03/2025 MyC Medical Advice [facility] [address] [phone] Andrews Dixon EMT 04/30/2025 11:00 AM CDT Therapy Visit [address] [phone] Jason Alvares MD Peterson, Megan A, OTR Seizures, post-traumatic (H) (Primary Dx) 04/30/2025 Travel 04/29/2025 Travel 04/26/2025 MyC Medical Advice [facility] [address] [phone] Omar Carmona MD 04/26/2025 MyC Medical Advice [facility] [address] [phone] Jignesh Mathias MD 04/25/2025 12:45 PM CDT Office Visit [facility] [address] [facility] [address] [place] [address] Ruth Riddle, DPM, Podiatry/Foot and Ankle Surgery Foot pain, bilateral (Primary Dx); Hammertoe of left foot; Callus of foot; Onychomycosis of toenail; Idiopathic peripheral neuropathy; Congenital bilateral pes cavus 04/25/2025 Travel 04/19/2025 Travel 04/12/2025 2:15 PM CDT Therapy Visit [address] [phone] Jason Alvares MD Peterson, Megan A, OTR Seizures, post-traumatic (H) (Primary Dx) 04/11/2025 12:30 PM CDT Office Visit [facility] [address] [phone] Omar Carmona MD CKD (chronic kidney disease) stage 2, GFR 60-89 ml/min (Primary Dx); Screening for cardiovascular condition; Hyperlipidemia, unspecified hyperlipidemia type 04/11/2025 Travel 04/10/2025 Orders Only [facility] [address] [phone] Jayla Plaza, RN Alcoholic cirrhosis of liver without ascites (H) 04/08/2025 Travel 04/06/2025 11:30 AM CDT Therapy Visit [address] [phone] Roxana Montoya, PT Mixed stress and urge urinary incontinence (Primary Dx) 04/06/2025 Refill [facility] [address] [phone] Jignesh Mathias MD 04/05/2025 Travel 04/01/2025 Travel 03/29/2025 10:30 AM CDT Therapy Visit [address] [phone] Roxana Montoya, PT Mixed stress and urge urinary incontinence (Primary Dx) 03/29/2025 Travel 03/28/2025 Travel 03/18/2025 Travel 03/12/2025 11:00 AM CDT Therapy Visit [address] [phone] Jason Alvares MD Peterson, Megan A, OTR Seizures, post-traumatic (H) (Primary Dx) 03/12/2025 Travel 03/08/2025 Orders Only [facility] [address] [phone] Jayla Plaza, RN Hepatic encephalopathy (H) from Last 3 Months Immunizations Immunization Administration [...] uit: Not Asked; Counseling Given: Not Answered Comments:2 PPD Alcohol Use Standard Drinks/Week Comments [...] Sex Assigned at Female 09/12/2020 12:05 PM TRIM LINE WORKER Legal Sex Female 3:26 AM TRIM LINE WORKER Gender Identity Female 09/12/2020 12:05 PM TRIM LINE WORKER Sexual Orientation Straight 12/19/2021 10 :44 [...] Pulse 79 06/08/2025 9:16 AM CDT Temperature 36.6 C (97.8 F) 05/03/2025 3:56 PM CDT Respiratory Rate 18 06/08/2025 9:16 AM CDT Oxygen Saturation 97% 06/08/2025 9:16 AM CDT Inhaled Oxygen Concentration - - Weight 54.9 kg (121 lb) 06/08/2025 9:16 AM CDT Height 167.6 cm (5' 6) 06/08/2025 9:16 AM CDT Body Mass Index 19.53 06/08/2025 9:16 AM CDT Plan of Treatment Upcoming Encounters Date Type Department Care Team (Late st Contact Info) Description 06/13/2025 6:00 PM TRIM LINE WORKER Ancillary Procedure [facility] [address] [phone] Omar Carmona MD [address] [place] [address] 06/14/2025 4:00 PM TRIM LINE WORKER Office Visit [facility] [address] [place] [address] Omar Carmona MD [address] [place] [address] 06/15/2025 12:45 PM TRIM LINE WORKER Therapy Visit [facility] [address] [facility] [place] [phone] Jason Alvares MD [address] [place] [phone] Chaya Castillo OTR [facility] [address] [facility] [place] [address] 06/19/2025 10:30 AM TRIM LINE WORKER Virtual Visit [facility] [address] [place] [address] 4th [place] [phone] Omar Carmona MD [address] [place] [phone] Gerson Santos [facility] 06/26/2025 11:00 AM TRIM LINE WORKER Therapy Visit [facility] [address] [facility] [place] [phone] Jason Alvares MD [address] [place] [phone] Chaya Castillo OTR [facility] [address] [place] [address] 07/09/2025 12:45 PM TRIM LINE WORKER Therapy Visit [facility] [address] [facility] [place] [phone] Jason Alvares MD [address] [place] [address] Chaya Castillo OTR [facility] [address] [facility] [place] [address] 07/18/2025 3:00 PM TRIM LINE WORKER Office Visit [facility] [address] [phone] Adonay Chapman APRN [facility] [address] [place] [address] 11/05/2025 12:30 PM CDT Lab [facility] [address] [phone] 11/05/2025 1:45 PM CDT Office Visit [facility] Dermatology [address] [phone] Gavi Nieto PA-C [facility] [address] [place] [phone] 11/20/2025 10:30 AM CDT Virtual Visit [address] [place] [address] [phone] Marquise Hanley MD [address] [place] [phone] Health Maintenance Due Date Last Done Comments CT COLONOGRAPHY 1969 FIT 1969 sDNA (Cologuard) 1969 ZOSTER VACCINE (1 of 2) 2019 ANNUAL REVIEW OF HM ORDERS 07/14/2024 07/14/2023 MICROALBUMIN 07/14/2024 07/14/2023, 02/06, 01/15/2022, Additional history exists LUNG CANCER SCREENING 10/12/2024 10/13/2023 , 03/17/2023, 02/23/2022, Additional history exists LIPID 02/27/2025 02/28/2024, 08/0 02/2023, 02/15/2023, Additional history exists COVID-19 VACCINE ( season) 2025 06/27/2023, 05/24/2022, 05/24/2022, Additional history exists INFLUENZA VACCINE (#1) 2025 , 08/28/2024, 06/27/2023, Additional history exists FLEX SIG 10/25/2025 10/25/2020 PHQ-9 10/31/2025 05/03/2025, 09/0 10/2024, 12/04/2024, Additional history exists MAMMO SCREENING 11/20/2025 11/20/2024, 11/07, 09/10/2023, Additional history exists BMP 12/04/2025 06/05/2025, 10/0 02/2025, 12/05/2024, Additional history exists NICOTINE/TOBACCO CESSATION COUNSELING Q 1 YR 04/11/2026 04/11/2025, 02/28/2024, 03/15/2023, Additional history exists MEDICARE ANNUAL WELLNESS VISIT 05/03/2026 05/03/2025, 11/24/2024, 03/15/2023, Additional history exists ALT 06/05/2026 06/05/2025, 10/0 02/2025, 12/05/2024, Additional history exists CBC 06/05/2026 06/05/2025, 10/0 02/2025, 12/05/2024, Additional history exists ADVANCE CARE PLANNING 12/24/2026 12/24/2021 , 08/27/2021, 09/16/2020 HF ACTION PLAN 06/30/2027 06/30/2024 (Not Needed) HPV TEST 03/15/2028 03/15/2023, 03/14/2018 PAP 03/15/2028 03/15/2023, 08/0 01/2018, 05/29/2013 DIABETES SCREENING 06/05/2028 06/05/2025, 1 , 12/05/2024, Additional history exists COLONOSCOPY 03/02/2029 03/02/2019, 03/02/2019 COLORECTAL CANCER SCREENING 03/02/2029 DTAP/TDAP/TD VACCINE (1 - Tdap) 02/21/2030 02/22/2020, 01/16/2010 Postponed from 02/23/2020 (Other) HIV SCREENING Completed 05/19/2010 DEPRESSION ACTION PLAN Completed 10/10/2018 HEPATITIS C SCREENING Completed 11/20/2020 , 11/20/2020, 05/22/2010, Additional history exists PNEUMOCOCCAL VACCINE 50+ YEARS Completed 02/16/2022, 05/28/2011 HEPATITIS A VACCINE Completed 10/21/2022, 10/22/2021, 08/27/2021 HEPATITIS B VACCINE Completed 10/21/2022, 10/22/2021, 08/27/2021 URINALYSIS Completed 02/15/2023, 07/09, 01/12/2021, Additional history exists TSH W/FREE T4 REFLEX Completed 05/15/2025, 02/09/2024, 07/14/2023, Additional history exists HPV VACCINE (No Doses Required) Completed MENINGITIS VACCINE Aged Out No longer eligible based on patient's age to complete this topic Goals Goal Patient Goal Type Associated Problems Recent Progress Patient-Stated? Author Quit smoking / using tobacco Lifestyle Rio Will MD Note: 06/25/14 planned quit date Medical Devices Implanted Type Area Billet Inspector Device Identifier Shelf Expiration Date Model / Serial / Lot Device Essure [id number] Implanted:Qty: 1 on 12/05/2014 by Jemima Jaramillo MD at [facility] Right: Fallopian Tube [employer] 12/01/2016 [id number] / / [id number] Procedures Procedure Name Priority Date/Time Associated Diagnosis Comments US ABDOMEN LIMITED Routine 06/07/2025 10 :30 AM CDT Alcoholic cirrhosis of liver without ascites (H) AFP TUMOR MARKER Routine 06/05/2025 4:13 PM CDT Alcoholic cirrhosis of liver without ascites (H) INR Routine 06/05/2025 4:13 PM CDT Alcoholic cirrhosis of liver without ascites (H) CBC WITH PLATELETS Routine 06/05/2025 4: 13 PM CDT Alcoholic cirrhosis of liver without ascites (H) BASIC METABOLIC PANEL Routine 06/05/2025 4:13 PM CDT Alcoholic cirrhosis of liver without ascites (H) HEPATIC FUNCTION PANEL Routine 06/05/2025 4:13 PM CDT Alcoholic cirrhosis of liver without ascites (H) CBC WITH PLATELETS & DIFFERENTIAL Routine 05/15/2025 1:44 PM CDT CBC WITH PLATELETS AND DIFFERENTIAL Routine 05/15/2025 1:44 PM CDT PARATHYROID HORMONE INTACT Routine 05/15/2025 1:44 PM CDT Compression fracture of T12 vertebra, sequela Osteoporotic compression fracture of spine, with routine healing, subsequent encounter Age-related osteoporosis with current pathological fracture, vertebra(e), initial encounter for fracture (H) VITAMIN D DEFICIENCY SCREENING Routine 05/15/2025 1:44 PM CDT TSH WITH FREE T4 REFLEX Routine 05/15/2025 1:44 PM CDT COMPREHENSIVE METABOLIC PANEL Routine 05/15/2025 1:44 PM CDT LIPID REFLEX TO DIRECT LDL PANEL Routine 02/28/2024 10:29 AM CDT Hyperlipidemia LDL goal <100 MAMMOGRAM - HIM SCAN Routine 09/10/2023 ALBUMIN AND CREATININE WITH RATIO RANDOM URINE QUANTITATIVE Routine 07/14/2023 10:09 AM TRIM LINE WORKER Essential hypertension, benign CT CHEST ABDOMEN PELVIS [...] CDT COLONOSCOPY Routine 03/02/2019 7:16 AM CDT HIV 1 AND 2 ANTIBODY (QUEST) Routine 05/19/2010 2:24 PM CDT from Last 3 Months or Most Recently Relevant to Health Maintenance Results * US Abdomen Limited (06/07/2025 10:30 [...] follow-up. *Recommendations above based on LI-RADS? v2024: https://www.acr.org/Clinical-Resources/Cnpotqza-Uonmh-jpz-Reference/Re texfbu-okp-Glym-Systems/LI-RADS LASHAUN FINLEY DO Narrative 06/08/2025 9:40 AM [...] ascites or pleural effusions. Procedure Note Lashaun Finley, DO - 06/08/2025 Exam: US ABDOMEN LIMITED, [...] follow-up. *Recommendations above based on LI-RADS? v2024: https://www.acr.org/Clinical-Resources/Sqfwzbdh-Dhfla-nrq-Reference/Re dfjxkj-fnv-Ahyu-Systems/LI-RADS LASHAUN FINLEY DO Jignesh Mathias MD [facility] US ORDERABLES Final Result * INR [[id number]] (06/05/2025 4:13 PM CDT) INR 1.10 0.85 - 1.15 06/05/2025 7:01 PM CDT OX LABORATORY PT 14.6 11.8 - 14.8 Seconds 06/05/2025 7:01 PM CDT LABORATORY Blood STRUCTURE OF RIGHT UPPER LIMB / Unknown Venipuncture / Unknown 06/05/2025 4:13 PM CDT 06/05/2025 4:14 PM CDT Jignesh Mathias MD LAB - BLOOD ORDERABLES Final Res ult LABORATORY [facility] [address] Lab (no room number, 1st floor of clinic) [place] [address], [facility] * (ABNORMAL) Hepatic Panel [LAB20] (06/05/2025 4:13 [...] PM CDT 06/05/2025 4:14 PM CDT Jignesh Matihas MD LAB - BLOOD ORDERABLES Final Res ult [facility] LABORATORY [facility] [place] Core Lab [address] [facility], Room [address] [place] [phone], [facility] * AFP tumor marker [[id number]] (06/05/2025 4:13 PM CDT) Pathologist [facility] AFP tumor marker 2.5 <=8.3 ng/mL 06/06/2025 11:15 AM CDT [facility] LABORATORY Blood STRUCTURE OF RIGHT UPPER LIMB / Unknown Venipuncture / Unknown 06/05/2025 4:13 PM CDT 06/05/2025 4:14 PM CDT Narrative [facility] LABORATORY - 06/06/2025 11:15 AM CDT This result is obtained using the [employer] Elecsys AFP method on the little e801 immunoassay analyzer. Results obtained with different assay methods or kits cannot be used interchangeably. Reference ranges apply to non- females only. us Jignesh Mathias MD LAB - BLOOD ORDERABLES Final Res ult [facility] LABORATORY [facility] [place] [facility] [address] [facility], [address] [address] * Basic metabolic panel [LAB15] (06/05/2025 4:13 PM CDT) Pathologist [facility] Sodium 141 135 - 145 mmol/L 06/06/2025 [...] BLOOD ORDERABLES Final Res ult [facility] LABORATORY [facility] [place] [facility] [address] [facility], [address] [place] [address], [facility] * (ABNORMAL) CBC with platelets [GAC120] (06/05/2025 4:13 PM CDT) Pathologist [facility] WBC Count 6.59 4.00 - 11.00 10e3/uL [...] BLOOD ORDERABLES Final Res ult RI LABORATORY [facility] [place] [facility] [address], [address] [place] [address], [facility] * (ABNORMAL) CBC with platelets and differential [...] ORDERABLES Ashly l Result Performing Organization Address [facility] de Phone Number [facility]AT[facility] [address] [address] * (ABNORMAL) Vitamin D Deficiency (05/15/2025 1:44 [...] intake, and treatment affect the concentration of 42-rqjxrxm-Scyxqxg D. Values may decrease during winter months and increase during summer months. Vitamin D determination is routinely performed by an immunoassay specific for 25 hydroxyvitamin D3. If an individual is on vitamin D2(ergocalciferol) supplementation, please specify 25 OH vitamin D2 and D3 level determination by LCMSMS test VITD23. Omar Carmona MD LAB - BLOOD ORDERABLES Ashly l Result Performing Organization Address City/[facility]/ZIP Co de Phone Number [facility]U LABORATORY [facility] [place] Core Lab [address] [facility] [address] [facility], [address] [place] [address], [facility] * TSH with free T4 reflex (05/15/2025 1:44 PM CDT) [facility] TSH 1.27 0.30 - 4.20 uIU/mL 05/15/2025 2:18 PM CDT [facility] LABORATORY Blood BLOOD SPECIMEN / Unknown Venipuncture / Unknown 05/15/2025 1:44 PM CDT 05/15/2025 1:47 PM CDT Omar Carmona MD LAB - BLOOD ORDERABLES Ashly l Result Performing Organization Address City/[facility]/ZIP Co de Phone Number LABORATORY [address] [address] * Parathyroid Hormone Intact (05/15/2025 1:44 PM CDT) [facility] Parathyroid Hormone Intact 41 15 - 65 pg/mL 05/16/2025 1:41 PM CDT [facility] LABORATORY Blood BLOOD SPECIMEN / Unknown Venipuncture / Unknown 05/15/2025 1:44 PM CDT 05/15/2025 1:47 PM CDT Narrative U LABORATORY - 05/16/2025 1:41 PM CDT This result was obtained with the [employer] Elecsys PTH STAT assay. This reference range differs from PTH assays used in other [facility] laboratories. Marquise Hanley MD LAB - BLOOD ORDERABLES Final Result U LABORATORY [facility] [place] [facility] [address] [facility], [address] [place] [address], [facility] * (ABNORMAL) Comprehensive metabolic panel (BMP + Alb, Alk Phos, ALT, AST, Total. Bili, TP) (05/15/2025 1:44 PM CDT) [facility] Sodium 143 135 - 145 mmol/L 05/15/2025 [...] LAB - BLOOD ORDERABLES Ashly rivera Result LABORATORY [facility] [address], [place] [address] * Lipid panel reflex to direct LDL Non-fasting (02/28/2024 10:29 AM CDT) Cholesterol 109 <200 mg/dL 02/28/2024 11:00 AM CDT [facility] Triglycerides 56 <150 mg/dL 02/28/2024 11:00 AM CDT [facility] Direct Measure HDL 67 >=50 mg/dL 2023 11:00 AM CDT [facility] LDL Cholesterol Calculated 31 <=100 mg/dL 02/28/2024 11:00 AM CDT [facility] Non HDL Cholesterol 42 <130 mg/dL 02/28/2024 11:00 AM CDT [facility] Patient Fasting > 8hrs? No 02/28/2024 11:00 AM CDT [facility] Blood STRUCTURE OF LEFT UPPER LIMB / Unknown Venipuncture / Unknown 02/28/2024 10:29 AM CDT 02/28/2024 10:29 AM CDT Narrative [facility] - 02/28/2024 11:00 [...] LAB - BLOOD ORDERABLES Fin al Result [facility] [place] [address] [facility] 1st [place] [address] * Mammogram - HIM Scan (09/10/2023) Anatomical Region Laterality Modality Other Narrative 09/10/2023 See encounter dated 02/27/24 us Patient Reported IMG MAMMOGRAPHY ORDERABLES Ashly l Result * Albumin Random Urine Quantitative with Creat Ratio (07/14/2023 10:09 AM TRIM LINE WORKER) Creatinine Urine mg/dL 10.0 mg/dL 07/14/2023 2:27 PM TRIM LINE WORKER [facility] Comment:The reference ranges have not been established in urine creatinine. The results should be integrated into the clinical context for interpretation. Albumin Urine mg/L <12.0 mg/L 2022 2:27 PM TRIM LINE WORKER [facility] Comment:The reference ranges have not been established in urine albumin. The results should be integrated into the clinical context for interpretation. Albumin Urine mg/g Cr 07/14/2023 2:27 PM TRIM LINE WORKER [facility] Comment: Unable to calculate, urine [...] control, and institution of therapy with an wncydwqkpnq-fzjxbaawrz-kescse (VALERIA) inhibitor (if the patient can tolerate it). Urine MID-STREAM URINE SPECIMEN / Unknown Non-blood Collection / Unknown 07/14/2023 10:09 AM TRIM LINE WORKER 07/14/2023 10:09 AM TRIM LINE WORKER us Rio Jaquez MD LAB - URINE ORDERABLES Fin al Result [facility] [place] Core Lab [address], [address] [place] [address] [phone] * CT Chest Abdomen Pelvis w/o Contrast (03/17/2023 3:25 PM CDT) Anatomical Region Laterality Modality Abdomen/Pelvis, SUBRAD CT LARA DY, UMP CT CHEST, UMP CT ABDOMEN PELVIS, Chest, RAD CT Computed Tomography 03/17/2023 3:25 PM CDT Impressions 03/18/2023 8:15 AM CDT IMPRESSION: 1. Although the 1.9 cm left adrenal nodule is indeterminate on today's CT, it is unchanged in size and appearance compared to 202, and is likely benign. 2. 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 3. Similar appearance of small mediastinal lymph nodes, in a patient with a history of sarcoidosis. Narrative 03/18/2023 8:15 AM CDT EXAM: CT CHEST ABDOMEN PELVIS W/O CONTRAST LOCATION: [facility] DATE: 03/17/2023 INDICATION: Partial congenital anomalous pulmonary [...] CT CHEST ABDOMEN PELVIS W/O CONTRAST LOCATION: [facility] DATE: 03/17/2023 INDICATION: Partial congenital anomalous pulmonary [...] component of this testing was completed at [facility] 03/17/2023 8:33 AM CDT [facility] LAB[facility] Brushing CERVIX UTERI STRUCTURE / Unknown Non-blood Collection / Unknown 03/15/2023 10:12 AM CDT 03/15/2023 10:39 AM CDT Rio Jaquez MD LAB - BEAKER AP Final Resu lt [facility] Specialty Lab [address] [facility], [address] [address], [facility] [phone] * HPV High Risk Types DNA Cervical (03/15/2023 10:12 AM CDT) Other HR HPV Negative Negative 03/18/2023 4:31 PM CDT [facility] HPV16 DNA Negative Negative 03/18/2023 4:31 PM CDT [facility] HPV18 DNA Negative Negative 03/18/2023 4:31 PM CDT [facility] FINAL DIAGNOSIS This patient's sample is negative for HPV DNA. This test was developed and its performance characteristics determined by the [facility], Molecular Diagnostics Laboratory. It has not been [...] 10:12 AM CDT 03/18/2023 8:00 AM CDT Rio Jaquez MD LAB - BLOOD ORDERABLES Fin al Result [facility] Diagnostics [address] [facility] [address], [address] [address], [facility] [phone] * UA with Microscopic (02/15/2023 12:21 PM CDT) Color Urine Straw Colorless, Straw, Light Yellow, Yellow 02/15/2023 12:38 PM CDT [facility] Appearance Urine Clear Clear 02/16/20 12:38 PM CDT [facility] Glucose Urine Negative Negative mg/dL 02/15/2023 12:38 PM CDT [facility] Bilirubin Urine Negative Negative 12:38 PM CDT [facility] Ketones Urine Negative Negative mg/dL 02/15/2023 12:38 PM CDT [facility] Specific [place] Urine 1.003 1.003 - 1.035 02/15/2023 12:38 PM CDT [facility] Blood Urine Negative Negative 02/15/2023 12:38 PM CDT [facility] pH Urine 6.5 5.0 - 7.0 02/15/2023 12:38 PM CDT [facility] Protein Albumin Urine Negative Negative mg/dL 02/15/2023 12:38 PM CDT [facility] Urobilinogen Urine Normal Normal, 2.0 mg/dL 02/15/2023 12:38 PM CDT [facility] Nitrite Urine Negative Negative 02/15/2023 12:38 PM CDT [facility] Leukocyte Esterase Urine Negative Negative 02/15/2023 12:38 PM CDT [facility] RBC Urine <1 <=2 /HPF 02/15/2023 12:38 PM CDT [facility] WBC Urine 0 <=5 /HPF 02/15/2023 12:38 PM CDT [facility] Urine MID-STREAM URINE SPECIMEN / Unknown Non-blood Collection / Unknown 02/15/2023 12:21 PM CDT 02/15/2023 12:21 PM CDT Laura Epperson NP LAB - URINE ORDERABLES Fi nal Result [facility] C[facility] - [address] 1st [place] [address] * PHQ-9 DEPRESSION SCREENING ORDER (06/16/2021) Pathologist [facility] PHQ9 SCORE 11 Lalitha Carpio - 06/16/2021 [facility] Provider Outside OTHER Final Result * Hepatitis C antibody (11/20/2020 9:24 AM CDT) [facility] Hepatitis C Antibody Negative Negative 11/20/2020 1:13 PM CDT [facility] Blood specimen (specimen) (Line) VAD(CVC, PICC) / Unknown 11/20/2020 9:24 AM CDT 11/20/2020 11:21 AM CDT Omar Mejia MD LAB - BLOOD ORDERABLES Final Re sult Performing Organization Address City/[facility]/ZIP Co de Phone Number [facility] [address] [address], [facility] [phone] [facility] [address] [address] * COLONOSCOPY (03/02/2019 7:16 AM CDT) [facility] COLONOSCOPY [address] 077028 [phone] Endoscopy Department Patient Name: Carol Wright Scherping Procedure Date: 03/02/2019 7:16 AM Date of : 1970 Admit Type: Outpatient Age: 48 Room: #7 Gender: Female Note Status: Finalized Attending MD: [...] of the exam. Signature of teaching physician Marly/Reyna Mederos MD Number of Addenda: 0 Note Initiated On: 03/02/2019 7:16 AM Scope In: Scope Out: RADIOLOGY RESULTS 03/02/2019 7:16 AM CDT Rio Jaquez MD PROCEDURES Final Resu lt Performing Organization Address City/State/[facility] Co de Phone Number RADIOLOGY RESULTS * HIV 1 and 2 Antibody (05/19/2010 2:24 PM CDT) HIV 1&2 Antibody Negative NEG MISYS 05/19/2010 2:24 PM CDT 05/19/2010 2:27 PM CDT Rio Jaquez MD LAB - BLOOD ORDERABLES Fin al Result MISYS from Last 3 Months or Most Recently Relevant to Health Maintenance Additional Health Concerns Infection Onset Date Last 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 10/23/2020 10/21/2020 Insurance MEDICARE BCBS OUT OF STATE MEDICARE BCBS OUT OF STATE MEDICARE [facility] OUT OF STATE * Guarantor: Carol Burrell Account Type Relation to Patient Date of Phone Billing Address Medication Therapy Self [id number] [address] MEDICARE MEDICARE Advance Directives For more information, please contact: [phone] * Full Code (Latest Code Status on [...] patie nt/ legal decision maker Care Teams Embroidery Machine Operator Relationship Specialty Start Date End Date Omar Carmona MD [address] [place] [address] PCP - General Family Medicine 07/14/24 Barry Kilpatrick MD [address] [place] [address] [id number] [place], [place] [phone] Neurology 07/19/14 Michelle Henderson I RN Nurse Coordinator Neurology 07/19/14 Rio Jaquez MD [address] [place] [address] 270655 Family Practice 10/15/14 Jemima Jaramillo MD [address] [place] [address] laundry assistant 11/20/14 Kelley Chin, TANIA [address] 735805 Nurse Coordinator Cardiology 11/04/15 Sydnee Saleem MD [address] [place] [address] 508 [place], [place] [phone] Cardiology 11/04/15 Karlene Moya MD [address] [place] [address] [phone] Ophthalmology 06/24/17 Wilbert Quintero OD [address] [place] [address] Optometry 06/24/17 Rod Gauthier DPM [address] [place] [address] 765175 Cartographic Engineer Primary Podiatric Medicine 06/21/18 Jan Mahmood MD [address] [place] [address] [phone] Gastroenterology 11/05/20 Brandt Quintana MD [address] [place] [address] Resident 11/05/20 Jan Mahmood MD [address] [place] [address] Assigned Gastroenterology Provider 12/01/20 Dom Eason MD [address] [address] Internal Medicine 12/02/20 Jaimie Vernon, RN Specialty Aircraft Pilot Cardiology 10/28/21 Marquise Hanley MD [address] [place] [address] [phone] Endocrinology, Diabetes, and Metabolism 03/05/22 Vlad Ramey MD [address] [place] [address] [phone] Cardiovascular Disease 05/07/22 Joesph Crowe MD [address] [place] [address] Surgery 05/07/22 Michelle Padilla, RN Specialty Aircraft Pilot Cardiology 07/03/22 Marquise Hanley MD [address] [place] [address] 08[address] Assigned Endocrinology Provider 08/15/22 Wagner Oliver MD [address] [place] [address] Critical Care 12/15/22 Joesph Crowe MD [address] [place] [address] 74[address] Surgery 03/17/23 Adonay Haq MD [address] [place] [address] Internal Medicine 06/14/23 Ruth Riddle DPM, Podiatry/Foot and Ankle Surgery [address] [place] [address] Assigned Musculoskeletal Provider 10/22/23 Jignesh Mathias MD [address] [place] [address] [phone] Gastroenterology 09/25/24 Omar Carmona MD [address] [place] [address] Assigned PCP 12/29/24 Jason Alvares MD [address] [address] Assigned Neuroscience Provider 12/29/24 Jignesh Mathias MD [address] [place] [address] Assigned Surgical Provider 12/29/24 Ayad Lopez, PhD LP [address] [place] [address] [phone] Assigned Behavioral Health Provider 02/28/25 Gavi Nieto PA-C [address] [place] [address] [phone] Physician Tallow Pumper Dermatology 03/19/25
--- OUTSIDE RECORDS SUMMARY | 2025-06-08 22:55 | XMS_ITS | Encounter Summary ---
Author Organization [place] Address [address] [place] [address] Care Team Providers Care Metal Sorter Name Role Phone Rio Jaquez MD Primary Care Provider + [phone] Barry Kilpatrick MD Unavailable Michelle Henderson RN Unavailable [phone] Rio Jaquez MD Unavailable +[phone] Jemima Jaramillo MD Unavailable Unavai Kelley Bautista RN Unavailable +[phone] Sydnee Saleem MD Unavailable +[phone] Karlene Moya MD Unavailable +[phone] Wilbert Quintero OD Unavailable +[phone] Rod GauthierM Unavailable +[phone] Nallely Hogue RN Unavailable Unavailable Larisa Vargas RN Unavailable Unavailable Jan Mahmood MD Unavailable +[phone] Brandt Quintana MD Unavailable +[phone] Jan Mahmood MD Unavailable +[phone] Rio Jaquez MD Unavailable +[phone] Dom Eason MD Unavailable +[phone] Jayla Plaza RN Unavailable +[phone] Sydnee [...] Unavailable [phone] Dom Eason MD Unavailable +[phone] Wagner Oliver MD Unavailable +[phone] Laura Epperson NP Unavailable [phone] Thom Taveras MD Unavailable +[phone] Joesph Crowe MD Unavailable +[phone] Joesph Crowe MD Unavailable + [phone] Adonay Haq MD Unavailable +[phone] Denilson Srinivasan MD Unavailable + [phone] Jason Alvares MD Unavailable Ruth Riddle DPM, Podiatry /Foot and Ankle Surgery Unavailable Omar Carmona MD Primary Care Provider [phone] Jignesh Mathias MD Unavailable Adonay Haq MD Unavailable [phone] Omar Carmona MD Unavailable [phone] Jason Alvares MD Unavailable Jignesh Mathias MD Unavailable Ayad Lopez PhD LP Unavailable [phone] Gavi Nieto PA-C Unavailable +[phone] Encounter Details Date Type Department Care Team (Late st Contact Info) Description 01/14/2022 [facility] Medical Advice Initial Department [address] [place] [phone] Lizbeth Lopes Social History Tobacco Use Types [...] Answer Date Recorded PHQ-2 Score 2 08/27/2021 [facility] - [...] Sex Assigned at Female 09/12/2020 12:05 PM STRATEGIC DEVELOPMENT MANAGER Legal Sex Female 3:26 AM STRATEGIC DEVELOPMENT MANAGER Gender Identity Female 09/12/2020 12:05 PM STRATEGIC DEVELOPMENT MANAGER Sexual Orientation Straight 12/19/2021 10 :44 [...] st Contact Info) Description 06/13/2025 6:00 PM STRATEGIC DEVELOPMENT MANAGER Ancillary Procedure [facility] CT Clinic [address] [phone] Omar Carmona MD [address] [place] [address] [phone] 06/14/2025 4:00 PM STRATEGIC DEVELOPMENT MANAGER Office Visit [facility] [address] [place] [phone] Omar Carmona MD [address] [place] [address] [phone] 06/15/2025 12:45 PM STRATEGIC DEVELOPMENT MANAGER Therapy Visit [facility] [address] [phone] Jason Alvares MD [address] [place] [address] [phone] Chaya Castillo OTR [facility] [address] [place] [address] 06/19/2025 10:30 AM STRATEGIC DEVELOPMENT MANAGER Virtual Visit [facility] [address] [place] [address] 4th [place] [phone] Omar Carmona MD [address] [place] [address] [phone] Gerson Santos, [facility] 06/26/2025 11:00 AM STRATEGIC DEVELOPMENT MANAGER Therapy Visit [address] [phone] Jason Alvares MD [address] [place] [address] [phone] Chaya Castillo OTR [facility] [address] [place] [address] 07/09/2025 12:45 PM STRATEGIC DEVELOPMENT MANAGER Therapy Visit [address] [phone] Jason Alvares MD [address] [place] [address] 166035 Chaya Castillo OTR [facility] [address] [place] [address] 07/18/2025 3:00 PM STRATEGIC DEVELOPMENT MANAGER Office Visit [facility] [address] [phone] Adonay Chapman APRN [address] [phone] 11/05/2025 12:30 PM CDT Lab [facility] Lab [address] [place] [phone] 11/05/2025 1:45 PM CDT Office Visit [facility] D[facility]atology [facility] [address]rd [place] [phone] Gavi Nieto PA-C Dermatology [address] [place] [address] 11/20/2025 10:30 AM CDT Virtual Visit [address] [phone] Marquise Hanley MD [address] [place] [address] documented as of this encounter Goals Goal [...] Total Score: 5 08/27/19 22 9:25 AM STRATEGIC DEVELOPMENT MANAGER documented as of this encounter Care Teams Metal Sorter Relationship Specialty Start Date End Date Rio Jaquez MD [address] [place] [address] PCP - General Family Practice 12/02/10 07/13/24 Omar Carmona MD [address] [place] [address] PCP - General Family Medicine 07/14/24 Barry Kilpatrick MD [address] [place] [address] [id number] [place], [place] 660295 Neurology 07/19/14 Michelle Henderson I, RN Nurse Coordinator Neurology 07/19/14 Rio Jaquez MD [address] [place] [address] 4 [place], [place] [phone] Family Practice 10/15/14 Jemima Jaramillo MD machine quilt stuffer 11/20/14 Kelley Chin RN [address] [phone] Nurse Coordinator Cardiology 11/04/15 Sydnee Saleem MD [address] [place] [address] 508 [place], [place] [phone] Cardiology 11/04/15 Karlene Moya MD [address] [place] [address] [phone] Ophthalmology 06/24/17 Wilbert Quintero, OD [address] [place] [address] 419405 Optometry 06/24/17 Rod Gauthier DPM [address] [place] [address] 700075 Hr Payroll Coordinator Primary Podiatric Medicine 06/21/18 Nallely Hogue, RN Registered Nurse 02/20/19 11/23/22 Larisa aVrgas, TANIA Specialty Positive Printer Operator Cardiology 04/18/19 03/06/22 Jan Mahmood MD [address] [facility] [address] [place] [address] Gastroenterology 11/05/20 Brandt Quintana MD [address] [place] [address] Resident 11/05/20 Jan Mahmood MD [address] [facility] [address] [place] [address] Assigned Gastroenterology Provider 12/01/20 Rio Jaquez MD 909 [facility] 4 [place] [address] Assigned PCP 11/17/20 09/30/24 Dom Eason MD 717 [facility] [address] [place], [place] 238414 Internal Medicine 12/02/20 Jayla Plaza, RN Specialty Positive Printer Operator Hepatology 01/09/21 02/13/24 Sydnee Saleem MD [address] [place] [address] [phone] Assigned Heart and Vascular Provider 02/02/21 07/24/22 Cristian Barragan MD [address] [place] [address] Assigned Infectious Disease Provider 02/21/21 03/06/22 Jaimie Vernon, TANIA Specialty Positive Printer Operator Cardiology 10/28/21 Ruth Riddle DPM, Podiatry/Foot and Ankle Surgery [address] [place] [address] [address] Assigned Musculoskeletal Provider 11/30/21 09/30/23 Jason Alvares MD [address] [place] [address] Assigned Neuroscience Provider 01/03/22 05/15/22 Marquise Hanley MD [address] [place] [address] Endocrinology, Diabetes, and Metabolism 03/05/22 Vlad Ramey MD [address] [place] [address] [phone] Cardiovascular Disease 05/07/22 Joesph Crowe MD [address] [place] [address] Surgery 05/07/22 Luis Arrington MD [address] [place] [address] Assigned Neuroscience Provider 05/16/22 05/14/23 Michelle Padilla, TANIA Specialty Positive Printer Operator Cardiology 07/03/22 Vlad Ramey MD [address] [place] [address] [phone] Assigned Heart and Vascular Provider 07/25/22 05/28/23 Marquise Hanley MD [address] [place] [address] Assigned Endocrinology Provider 08/15/22 Dom Eason MD 717 [facility] [address] [place] [address] Assigned Nephrology Provider 11/28/22 02/19/23 Wagner Oliver MD [address] [place] [address] Critical Care 12/15/22 Laura Epperson NP 717 [facility] [address] [place] [address] Assigned Nephrology Provider 02/20/23 08/30/24 Thom Taveras MD [facility] [address] [place] [address] Assigned Cancer Care Provider 02/06/23 08/20/23 Joesph Crowe MD [address] [place] [address] Surgery 03/17/23 Joesph Crowe MD [address] [place] [address]26 Assigned Surgical Provider 04/03/23 09/30/24 Adonay Haq MD [address] [place] [address] Internal Medicine 06/14/23OctoberDenilson MD [address] [facility] [address] [place] [address] Assigned Heart and Vascular Provider 05/29/23 11/28/24 Jason Alvares MD [address] [place] [address] Assigned Neuroscience Provider 05/15/23 11/28/24 Ruth Riddle DPM, Podiatry/Foot and Ankle Surgery [address] [place] [address] Assigned Musculoskeletal Provider 10/22/23 Jignesh Mathias MD [address] [place] [address] Gastroenterology 09/25/24 Adonay Haq MD [address] [place] [address] Assigned PCP 10/01/24 12/28/24 Omar Carmona MD [address] [place] [address] Assigned PCP 12/29/24 Jason Alvares MD [address] [place] [address] Assigned Neuroscience Provider 12/29/24 Jignesh Mathias MD [address] [place] [address] 7[address] Assigned Surgical Provider 12/29/24 Ayad Lopez, PhD LP [address] [place] [address] Assigned Behavioral Health Provider 02/28/25 Gavi Nieto PA-C [address] [place], [place] 657705 Physician Brake Repairer Hydraulic Dermatology 03/19/25 documented as of this encounter
--- OUTSIDE RECORDS SUMMARY | 2025-06-08 22:55 | XMS_ITS | Encounter Summary ---
Author Organization [facility] Address [address] [place] [address] 18671 Care Team Providers Care Road Design Engineer Name Role Phone Rio Jaquez MD Primary Care Provider Barry Kilpatrick MD Unavailable Michelle Henderson I RN Unavailable [phone] Rio Jaquez MD Unavailable +[phone] Jemima Jaramillo MD Unavailable Unavai Kelley Bautista RN Unavailable +[phone] Sydnee Saleem MD Unavailable +[phone] Karlene Moya MD Unavailable +[phone] Wilbert Quintero OD Unavailable +[phone] Rod GauthierM Unavailable +[phone] Jan Mahmood MD Unavailable +[phone] Brandt Quintana MD Unavailable Jan Mahmood MD Unavailable +[phone] Rio Jaquez MD Unavailable +[phone] Dom Eason MD Unavailable + [phone] Edmond, Jaimie RN Unavailable Unavailable Marquise Hanley MD Unavailable +[phone] Vlad Ramey MD Unavailable +[phone] Joesph Crowe MD Unavailable + [phone] Michelle Padilla RN Unavailable Unavaila ble Marquise Hanley MD Unavailable +[phone] Wagner Oliver MD Unavailable +[phone] Laura Epperson NP Unavailable +[phone] Joesph Crowe MD Unavailable +[phone] Joesph Crowe MD Unavailable + [phone] Adonay Haq MD Unavailable +[phone] Denilson Srinivasan MD Unavailable + [phone] Jason Alvares MD Unavailable Ruth Riddle DPM, Podiatry /Foot and Ankle Surgery Unavailable Omar Carmona MD Primary Care Provider [phone] Jignesh Mathias MD Unavailable Adonay Haq MD Unavailable [phone] Omar Carmona MD Unavailable +[phone] Jason Alvares MD Unavailable Jignesh Mathias MD Unavailable Ayad Lopez PhD LP Unavailable +[phone] Gavi Nieto PA-C Unavailable +[phone] Encounter Details Date Type Department Care Team (Late st Contact Info) Description 06/12/2024 [facility] [place] [place] [facility] [address] [address] Jan Mahmood MD [address] [place] [address] Social History Tobacco Use Types Packs/Day Years [...] Answer Date Recorded PHQ-2 Score 2 02/28/2024 [facility] [...] Sex Assigned at Female 09/12/2020 12:05 PM CHRISTMAS TREE GROWER Legal Sex Female 3:26 AM CHRISTMAS TREE GROWER Gender Identity Female 09/12/2020 12:05 PM CHRISTMAS TREE GROWER Sexual Orientation Straight 12/19/2021 10 :44 AM CDT Occupation Industry Job Start Date Job End Date on disability for FMS Not on file Not on file Not on file disabled Not on file Not on file Not on file documented as of this encounter Plan of Treatment Upcoming Encounters Date Type Department Care Team (Late st Contact Info) Description 06/13/2025 6:00 PM CHRISTMAS TREE GROWER Ancillary Procedure [facility] CT Clinic [address] 1st [place] [address] Omar Carmona MD [address] [place] [address] 18519 06/14/2025 4:00 PM CHRISTMAS TREE [employer]OWER Office Visit [facility] [address] [phone] Omar Carmona MD [address] [place] [address] 693875 06/15/2025 12:45 PM CHRISTMAS TREE GROWER Therapy [facility] [address] [place] [phone] Jason Alvares MD [address] [place] [address] Chaya Castillo, OTR [facility] [address] [place], [place] 812987 06/19/2025 10:30 AM CHRISTMAS TREE [employer]OWER Virtual Visit [facility] [address] [phone] Omar Carmona MD [address] [place] [address] 29921 Gerson Santos [facility] 06/26/2025 11:00 AM [employer]STM[employer] TREE [employer]OWER Therapy [facility] [address] [place] [phone] Jason Alvares MD [address] [place] [address] 951465 Chaya Castillo, OTR [facility] [address] [place] [address] 07/09/2025 12:45 PM CHRISTMAS TREE [employer]OWER Therapy [facility] 150 [place] [address] Jason Alvares MD 420 [facility] 295 [place] [address] Chaya Castillo, OTR [facility] 150 [place] [address] 07/18/2025 3:00 PM CHRISTMAS TREE GROWER [facility] [address] [phone] Adonay Chapman APRN [facility] 500 [place], [place] 085025 11/05/2025 12:30 PM CDT Lab [facility] [address] 1st [place] [phone] 11/05/2025 1:45 PM CDT Office Visit [facility] Dermatology [address] 3rd [place] [phone] Gavi Nieto PANavinC Dermatology [address] [place] [address] 11/20/2025 10:30 AM CDT Virtual Visit [address] [phone] Marquise Hanley MD [address] [place] [address] 78174 documented as of this encounter Goals Goal [...] documented as of this encounter Care Teams Road Design Engineer Relationship Specialty Start Date End Date Rio Jaquez MD [address] [place] [address] 4 [place], [place] 448885 PCP - General Family Practice 12/02/10 07/13/24 Omar Carmona MD [address] [place] [address] 347235 PCP - General Family Medicine 07/14/24 Barry Kilpatrick MD [address] [place] [address] PH7342RY [place], [place] 602965 Neurology 07/19/14 Michelle Henderson I, RN Nurse Coordinator Neurology 07/19/14 Rio Jaquez MD [address] [place] [address] 782835 Family Practice 10/15/14 Jemima Jaramillo MD assistant community manager 11/20/14 Kelley Chin, TANIA [facility] [address] [place] [address] 682125 Nurse Coordinator Cardiology 11/04/15 Sydnee Saleem MD [address] [place] [address] 508 [place], [place] 591085 Cardiology 11/04/15 Karlene Moya MD [address] [place] [address] 275225 Ophthalmology 06/24/17 Wilbert Quintero OD [address] [place] [address] 72018 Optometry 06/24/17 Rod Gauthier DPM [address] [place] [address] 096815 Swimming Pool Installer Primary Podiatric Medicine 06/21/18 Jan Mahmood MD [address] [place] [address] 845245 Gastroenterology 11/05/20 Brandt Quintana MD [address] [place] [address] 59995 Resident 11/05/20 Jan Mahmood MD [address] [place] [address] 749685 Assigned Gastroenterology Provider 12/01/20 Rio Jaquez MD [address] [place] [address] 174065 Assigned PCP 11/17/20 09/30/24 Dom Eason MD [address] 340694 Internal Medicine 12/02/20 Jaimie Vernon, RN Specialty Career Representative Cardiology 10/28/21 Marquise Hanley MD [address] [place] [address] 83144 Endocrinology, Diabetes, and Metabolism 03/05/22 Vlad Ramey MD [address] [place] [address] 46252 Cardiovascular Disease 05/07/22 Joesph Crowe MD [address] [place] [address] 94372 Surgery 05/07/22 Michelle Padilla, RN Specialty Career Representative Cardiology 07/03/22 Marquise Hanley MD [address] [place] [address] 67696 Assigned Endocrinology Provider 08/15/22 Wagner Oliver MD [address] [place] [address] Critical Care 12/15/22 Laura Epperson NP [address] [place] [address] 1932 [place] [address] Assigned Nephrology Provider 02/20/23 08/30/24 Joesph Crowe MD [address] [place] [address] 31789 Surgery 03/17/23 Joesph Crowe MD [address] [place] [address] 37933 Assigned Surgical Provider 04/03/23 09/30/24 Adonay Haq MD 909 [place] [address] Internal Medicine 06/14/23OctoberDenilson MD [address] [place] [address] Assigned Heart and Vascular Provider 05/29/23 11/28/24 Jason Alvares MD [address] [place] [address] 67162 Assigned Neuroscience Provider 05/15/23 11/28/24 Ruth Riddle DPM, Podiatry/Foot and Ankle Surgery [address] [place], [place] 298447 Assigned Musculoskeletal Provider 10/22/23 Jignesh Mathias MD [address] [place] [address] 45729 Gastroenterology 09/25/24 Adonay Haq MD [address] [place] [address] 26927 Assigned PCP 10/01/24 12/28/24 Omar Carmona MD [address] [place] [address] 63360 Assigned PCP 12/29/24 Jason Alvares MD [address] [place] [address] 31103 Assigned Neuroscience Provider 12/29/24 Jignesh Mathias MD [address] [place] [address] 46994 Assigned Surgical Provider 12/29/24 Ayad Lopez, PhD LP [address] [place] [address] 24572 Assigned Behavioral Health Provider 02/28/25 Gavi Nieto PANavinC [address] [place] [address] 92238 Physician Interventional Physiatrist Dermatology 03/19/25 documented as of this encounter
--- OUTSIDE RECORDS SUMMARY | 2025-06-08 22:55 | XMS_ITS | Encounter Summary ---
Author Organization [facility] Address [address] [place] [address] 78477 Care Team Providers Care Mud Analysis Operator Name Role Phone Rio Jaquez MD Primary Care Provider + [phone] Barry Kilpatrick MD Unavailable Michelle Henderson RN Unavailable [phone] Rio Jaquez MD Unavailable +[phone] Jemima Jaramillo MD Unavailable Unavai Kelley Bautista RN Unavailable +[phone] Sydnee Saleem MD Unavailable +[phone] Karlene Moya MD Unavailable +[phone] Wilbert Quintero OD Unavailable +[phone] Rod GauthierM Unavailable +[phone] Nallely Hogue RN Unavailable Unavailable Larisa Vargas RN Unavailable Unavailable Jan Mahmood MD Unavailable +[phone] Brandt Quintana MD Unavailable +[phone] Jan Mahmood MD Unavailable +[phone] Rio Jaquez MD Unavailable +[phone] Dom Eason MD Unavailable +[phone] Jayla Plaza RN Unavailable +[phone] Sydnee [...] Unavailable +[phone] Dom Eason MD Unavailable +[phone] Wagner Oliver MD Unavailable +[phone] Laura Epperson NP Unavailable +[phone] Thom Taveras MD Unavailable +[phone] Joesph Crowe MD Unavailable +[phone] Joesph Crowe MD Unavailable + [phone] Adonay Haq MD Unavailable +[phone] Denilson Srinivasan MD Unavailable + [phone] Jason Alvares MD Unavailable Ruth Riddle DPM, Podiatry /Foot and Ankle Surgery Unavailable Omar Carmona MD Primary Care Provider [phone] Jignesh Mathias MD Unavailable Adonay Haq MD Unavailable +[phone] Omar Carmona MD Unavailable +[phone] Jason Alvares MD Unavailable Jignesh Mathias MD Unavailable Ayad Lopez PhD LP Unavailable +[phone] Gavi Nieto PA-C Unavailable +[phone] Encounter Details Date Type Department Care Team (Late st Contact Info) Description 01/06/[address] [facility] Neurology Clinic [address]rd [place] [address] Alaina Moreland CMA Social History [...] Answer Date Recorded PHQ-2 Score 2 08/27/2021 [facility] - [facility]ational Stress Questionnaire Answer Date [...] Sex Assigned at Female 09/12/2020 12:05 PM EQUIPMENT ASSOCIATE Legal Sex Female 3:26 AM EQUIPMENT ASSOCIATE Gender Identity Female 09/12/2020 12:05 PM EQUIPMENT ASSOCIATE Sexual Orientation Straight 12/19/2021 10 :44 [...] st Contact Info) Description 06/13/2025 6:00 PM EQUIPMENT ASSOCIATE Ancillary Procedure [facility] Imaging Center CT Clinic [address] 1st [place] [phone] Omar Carmona MD [address] [place] [address] 767335 06/14/2025 4:00 PM EQUIPMENT ASSOCIATE Office Visit [facility] Primary Care Clinic [address] 4th [place] [address] Omar Carmona MD [address] [place] [address] [phone] 06/15/2025 12:45 PM EQUIPMENT ASSOCIATE Therapy Visit [facility] Rehabilitation Services [address] [address] Jason Alvares MD [address] [place] [address] 295 [place] [address] Chaya Castillo OTR [facility] 150 [place] [address] 06/19/2025 10:30 AM EQUIPMENT ASSOCIATE Virtual Visit [facility] Primary Care Clinic [address] [place] [address] 4th [place] [phone] Omar Carmona MD [address] [place] [address] 767755 Gerson Santos, [facility] 06/26/2025 11:00 AM EQUIPMENT ASSOCIATE Therapy Visit [address] [phone] Jason Alvares MD [address] [place] [address] 288175 Chaya Castillo OTR [facility] 150 [place] [address] 07/09/2025 12:45 PM EQUIPMENT ASSOCIATE [facility] 150 [place] [phone] Jason Alvares MD [address] [place] [address] 295995 Chaya Castillo OTR [facility] 150 [place] [address] 07/18/2025 3:00 PM EQUIPMENT ASSOCIATE Office Visit [facility] Heart Clinic [address] [phone] Adonay Chapman APRN [address] [phone] 11/05/2025 12:30 PM CDT Lab [facility] [address] 1st [place] [phone] 11/05/2025 1:45 PM CDT Office Visit [facility] Dermatology Clinic [address] [place] [phone] Gaiv Nieto PA-C Dermatology [address] [place] [address] 90698 11/20/2025 10:30 AM CDT Virtual Visit [address] [address] Marquise Hanley MD [address] [place] [address] 366555 documented as of this encounter Goals Goal [...] Total Score: 5 08/27/19 22 9:25 AM EQUIPMENT ASSOCIATE documented as of this encounter Care Teams Mud Analysis Operator Relationship Specialty Start Date End Date Rio Jaquez MD [address] [place] [address] 051675 PCP - General Family Practice 12/02/10 07/13/24 Omar Carmona MD [address] [place] [address] 224795 PCP - General Family Medicine 07/14/24 Barry Kilpatrick MD 9 [facility] [id number] [place], [place] 158615 Neurology 07/19/14 Michelle Henderson I, RN Nurse Coordinator Neurology 07/19/14 Rio Jaquez MD [address] [place] [address] [address] [place], [place] 437575 Family Practice 10/15/14 Jemima Jaramillo MD member of technical staff 11/20/14 Kelley Chin RN [address] 894855 Nurse Coordinator Cardiology 11/04/15 Sydnee Saleem MD 420 [facility] 508 [place], [place] 538365 Cardiology 11/04/15 Karlene Moya MD [address] [place] [address] 717475 Ophthalmology 06/24/17 Wilbert Quintero, OD [address] [place] [address] 473805 Optometry 06/24/17 Rod Gauthier DPM [address] [place] [address] 543165 Light Oil Operator Primary Podiatric Medicine 06/21/18 Nallely Hogue, RN Registered Nurse 02/20/19 11/23/22 Larisa Vargas, TANIA Specialty Advertising Designer Cardiology 04/18/19 03/06/22 Jan Mahmood MD [address] [facility] [address] [place] [address] Gastroenterology 11/05/20 [place] [address] [place] [address] 29955 Resident 11/05/20 Jan Mahmood MD [address] [facility] 2[address] [place] [address] Assigned Gastroenterology Provider 12/01/20 Rio Jaquez MD 909 [facility] 4 [place] [address] Assigned PCP 11/17/20 09/30/24 Dom Eason MD 717 [facility] 353 [place] [address] Internal Medicine 12/02/20 Jayla Plaza, RN Specialty Advertising Designer Hepatology 01/09/21 02/13/24 Sydnee Saleem MD 6550 [facility] [address] [place] [address] [phone] Assigned Heart and Vascular Provider 02/02/21 07/24/22 Cristian Barragan MD 2945 [place] [address] Assigned Infectious Disease Provider 02/21/21 03/06/22 Jaimie Vernon, TANIA Specialty Advertising Designer Cardiology 10/28/21 Ruth Riddle DPM, Podiatry/Foot and Ankle Surgery [address] [place] [address] Assigned Musculoskeletal Provider 11/30/21 09/30/23 Jason Alvares MD [address] [place] [address] 09667 Assigned Neuroscience Provider 01/03/22 05/15/22 Marquise Hanley MD [address] [place] [address] 10565 Endocrinology, Diabetes, and Metabolism 03/05/22 Vlad Ramey MD [address] [place] [address] 87498 Cardiovascular Disease 05/07/22 Joesph Crowe MD [address] [place] [address] 58961 Surgery 05/07/22 Luis Arrington MD [address] [place] [address] 52583 Assigned Neuroscience Provider 05/16/22 05/14/23 Michelle Padilla RN Specialty Advertising Designer Cardiology 07/03/22 Vlad Ramey MD [address] [place] [address] 84304 Assigned Heart and Vascular Provider 07/25/22 05/28/23 Marquise Hanley MD [address] [place] [address] 40576 Assigned Endocrinology Provider 08/15/22 Dom Eason MD 717 [facility] [address] [place] [address] Assigned Nephrology Provider 11/28/22 02/19/23 Wagner Oliver MD [address] [place] [address] Critical Care 12/15/22 Laura Epperson NP 7 [facility] [address] [place] [address] Assigned Nephrology Provider 02/20/23 08/30/24 Thom Taveras MD [address] [place] [address] Assigned Cancer Care Provider 02/06/23 08/20/23 Joesph Crowe MD [address] [place] [address] 02588 Surgery 03/17/23 Joesph Crowe MD [address] [place] [address] 21712 Assigned Surgical Provider 04/03/23 09/30/24 Adonay Haq MD [address] [place] [address] 86110 Internal Medicine 06/14/23OctoberDenilson MD [address] [place] [address] Assigned Heart and Vascular Provider 05/29/23 11/28/24 Jason Alvares MD [address] [address] Assigned Neuroscience Provider 05/15/23 11/28/24 Ruth Riddle, DPM, Podiatry/Foot and Ankle Surgery [address] [place], [place] 896437 Assigned Musculoskeletal Provider 10/22/23 Jignesh Mathias MD [address] [place] [address] 655655 Gastroenterology 09/25/24 Adonay Haq MD [address] [place] [address] 486575 Assigned PCP 10/01/24 12/28/24 Omar Carmona MD [address] [place] [address] 363885 Assigned PCP 12/29/24 Jason Alvares MD [address] [place] [address] 14275 Assigned Neuroscience Provider 12/29/24 Jignesh Mathias MD [address] [place] [address] 525975 Assigned Surgical Provider 12/29/24 Ayad Lopez, PhD LP [address] [place] [address] 81403 Assigned Behavioral Health Provider 02/28/25 Gavi Nieto PA-C [address] [place] [address] Physician Patent Law Specialist Dermatology 03/19/25 documented as of this encounter
--- OUTSIDE RECORDS SUMMARY | 2025-06-08 22:55 | XMS_ITS | Encounter Summary ---
Author Organization [facility] Address [address] [place] [address] 37428 Care Team Providers Care Conductor Pullman Name Role Phone Rio Jaquez MD Primary Care Provider + [phone] Barry Kilpatrick MD Unavailable Michelle Henderson RN Unavailable [phone] Rio Jaquez MD Unavailable +[phone] Jemima Jaramillo MD Unavailable Unavai Kelley Bautista RN Unavailable +[phone] Sydnee Saleem MD Unavailable +[phone] Karlene Moya MD Unavailable +[phone] Wilbert Quintero OD Unavailable +[phone] Rod GauthierM Unavailable +[phone] Nallely Hogue RN Unavailable Unavailable Larisa Vargas RN Unavailable Unavailable Jan Mahmood MD Unavailable +[phone] Brandt Quintana MD Unavailable +[phone] Jan Mahmood MD Unavailable +[phone] Rio Jaquez MD Unavailable +[phone] Dom Eason MD Unavailable +[phone] Jayla Plaza RN Unavailable +[phone] Sydnee [...] Unavailable +[phone] Dom Eason MD Unavailable +[phone] Wagner Oliver MD Unavailable +[phone] Laura Epperson NP Unavailable +[phone] Thom Taveras MD Unavailable +[phone] Joesph Crowe MD Unavailable +[phone] Joesph Crowe MD Unavailable + [phone] Adonay Haq MD Unavailable +[phone] Denilson Srinivasan MD Unavailable + [phone] Jason Alvares MD Unavailable Ruth Riddle DPM, Podiatry /Foot and Ankle Surgery Unavailable Omar Carmona MD Primary Care Provider +[phone] Jignesh Mathias MD Unavailable Adonay Haq MD Unavailable +[phone] Omar Carmona MD Unavailable +[phone] Jason Alvares MD Unavailable Jignesh Mathias MD Unavailable Ayad Lopez PhD LP Unavailable +[phone] Gavi Nieto PA-C Unavailable +[phone] Encounter Details Date Type Department Care Team (Late st Contact Info) Description 01/14/2022 [facility] Initial Department [address] [place] [phone] Lizbeth Lopes Social History Tobacco Use Types [...] Answer Date Recorded PHQ-2 Score 2 08/27/2021 [facility] [...] Sex Assigned at Female 09/12/2020 12:05 PM MYSQL DATABASE ADMINISTRATOR Legal Sex Female 3:26 AM MYSQL DATABASE ADMINISTRATOR Gender Identity Female 09/12/2020 12:05 PM MYSQL DATABASE ADMINISTRATOR Sexual Orientation Straight 12/19/2021 10 :44 [...] st Contact Info) Description 06/13/2025 6:00 PM MYSQL DATABASE ADMINISTRATOR Ancillary Procedure [facility] Clinic [address] [phone] Omar Carmona MD [address] [place] [address] [phone] 06/14/2025 4:00 PM MYSQL DATABASE ADMINISTRATOR Office Visit [facility] [address]th [place] [phone] Omar Carmona MD [address] [place] [address] [phone] 06/15/2025 12:45 PM MYSQL DATABASE ADMINISTRATOR Therapy Visit [facility] Rehabilitation Services [address] [phone] Jason Alvares MD [address] [place] [address] [phone] Chaya Castillo OTR [facility] [address] [place] [address] 06/19/2025 10:30 AM MYSQL DATABASE ADMINISTRATOR Virtual Visit [facility] [address] [place] [address] 4th [place] [phone] Omar Carmona MD [address] [place] [address] [phone] Gerson Santos, [facility] 06/26/2025 11:00 AM MYSQL DATABASE ADMINISTRATOR Therapy Visit [address] [phone] Jason Alvares MD [address] [place] [address] 584845 Ch[facility] [address] [place] [address] 07/09/2025 12:45 PM MYSQL DATABASE ADMINISTRATOR Therapy Visit [address] [phone] Jason Alvares MD [address] [place] [address] 413805 Ch[facility] Cast[facility] [address] [place] [address] 07/18/2025 3:00 PM MYSQL DATABASE ADMINISTRATOR Office Visit [facility] Heart Clinic [address] [phone] Adonay Chapman APRN [address] 759755 11/05/2025 12:30 PM CDT Lab [facility] Lab [address] [place] [phone] 11/05/2025 1:45 PM CDT Office Visit [facility] Dermatology Clinic [address] [place] [phone] Gavi Nieto PA-C Dermatology [address] [place] [address] 11/20/2025 10:30 AM CDT Virtual Visit [address] [address] Marquise Hanley MD [address] [place] [address] 67979 documented as of this encounter Goals Goal [...] Total Score: 5 08/27/19 22 9:25 AM MYSQL DATABASE ADMINISTRATOR documented as of this encounter Care Teams Conductor Pullman Relationship Specialty Start Date End Date Rio Jaquez MD [address] [place] [address] 52905 PCP - General Family Practice 12/02/10 07/13/24 Omar Carmona MD [address] [place] [address] 39046 PCP - General Family Medicine 07/14/24 Barry Kilpatrick MD [address] [place] [address] CI6300UM [place], [place] 467805 Neurology 07/19/14 Michelle Henderson I, RN Nurse Coordinator Neurology 07/19/14 Rio Jaquez MD [address] [place] [address] 4 [place], [place] 704155 Family Practice 10/15/14 Jemima Jaramillo MD orthotics assistant 11/20/14 Kelley Chin RN [address] 169745 Nurse Coordinator Cardiology 11/04/15 Sydnee Saleem MD [address] [place] [address] 508 [place], [place] 837735 Cardiology 11/04/15 Karlene Moya MD [address] [place] [address] [phone] Ophthalmology 06/24/17 Wilbert Quintero, OD [address] [place] [address] 575235 Optometry 06/24/17 Rod Gauthier DPM [address] [place] [address] [phone] Cloth Finishing Range Operator Chief Primary Podiatric Medicine 06/21/18 Nallely Hogue, RN Registered Nurse 02/20/19 11/23/22 Larisa Vargas, TANIA Specialty Automotive Artist Cardiology 04/18/19 03/06/22 Jan Mahmood MD [address] [facility] [address] [place] [address] Gastroenterology 11/05/20 Brandt Quintana MD [address] [place] [address] Resident 11/05/20 Jan Mahmood MD [address] [facility] 2[address] [place] [address] Assigned Gastroenterology Provider 12/01/20 Rio Jaquez MD 909 [facility] 4 [place] [address] Assigned PCP 11/17/20 09/30/24 Dom Eason MD 717 [facility] [address] [place], [place] 847084 Internal Medicine 12/02/20 Jayla Plaza, RN Specialty Automotive Artist Hepatology 01/09/21 02/13/24 Sydnee Saleem MD [address] [place] [address] [phone] Assigned Heart and Vascular Provider 02/02/21 07/24/22 Cristian Barragan MD 2945 [place] [address] Assigned Infectious Disease Provider 02/21/21 03/06/22 Jaimie Vernon, TANIA Specialty Automotive Artist Cardiology 10/28/21 Ruth Riddle DPM, Podiatry/Foot and Ankle Surgery [address] [address] Assigned Musculoskeletal Provider 11/30/21 09/30/23 Jason Alvares MD [address] [place] [address] 88251 Assigned Neuroscience Provider 01/03/22 05/15/22 Marquise Hanley MD [address] [place] [address] 02600 Endocrinology, Diabetes, and Metabolism 03/05/22 Vlad Ramey MD [address] [place] [address] 891955 Cardiovascular Disease 05/07/22 Joesph Crowe MD [address] [place] [address] 56975 Surgery 05/07/22 Luis Arrington MD [address] [place] [address] 56740 Assigned Neuroscience Provider 05/16/22 05/14/23 Michelle Padilla, TANIA Specialty Automotive Artist Cardiology 07/03/22 Vlad Ramey MD [address] [place] [address] 844875 Assigned Heart and Vascular Provider 07/25/22 05/28/23 Marquise Hanley MD [address] [place] [address] 32254 Assigned Endocrinology Provider 08/15/22 Dom Eason MD 717 [facility] [address] [place] [address] Assigned Nephrology Provider 11/28/22 02/19/23 Wagner Oliver MD [address] [place] [address] Critical Care 12/15/22 Laura Epperson NP 717 [facility] [address] [place] [address] Assigned Nephrology Provider 02/20/23 08/30/24 Thom Taveras MD [facility] [address] [place] [address] Assigned Cancer Care Provider 02/06/23 08/20/23 Joesph Crowe MD [address] [place] [address] 35500 Surgery 03/17/23 Joesph Crowe MD [address] [place] [address] 70683 Assigned Surgical Provider 04/03/23 09/30/24 Adonay Haq MD [address] [place] [address] 75776 Internal Medicine 06/14/23OctoberDenilson MD [address] [facility] [address] [place] [address] Assigned Heart and Vascular Provider 05/29/23 11/28/24 Jason Alvares MD [address] [place] [address] 24369 Assigned Neuroscience Provider 05/15/23 11/28/24 Ruth Riddle DPM, Podiatry/Foot and Ankle Surgery [address] [place] [address] Assigned Musculoskeletal Provider 10/22/23 Jignesh Mathias MD [address] [place] [address] 52810 Gastroenterology 09/25/24 Adonay Haq MD [address] [place] [address] 45897 Assigned PCP 10/01/24 12/28/24 Omar Carmona MD [address] [place] [address] 91351 Assigned PCP 12/29/24 Jason Alvares MD [address] [place] [address] 25884 Assigned Neuroscience Provider 12/29/24 Jignesh Mathias MD [address] [place] [address] 34737 Assigned Surgical Provider 12/29/24 Ayad Lopez, PhD LP [address] [place] [address] 55436 Assigned Behavioral Health Provider 02/28/25 Gavi Nieto PA-C [address] [place], [place] 853185 Physician Underwriting Service Representative Dermatology 03/19/25 documented as of this encounter
--- OUTSIDE RECORDS SUMMARY | 2025-06-08 22:55 | XMS_ITS | Encounter Summary ---
Author Organization [facility] Address [address] [place] [address] 69626 Care Team Providers Care Clinical Team Lead Name Role Phone Rio Jaquez MD Primary Care Provider Barry Kilpatrick MD Unavailable Michelle Henderson RN Unavailable [phone] Rio Jaquez MD Unavailable +[phone] Jemima Jaramillo MD Unavailable Unavai Kelley Bautista RN Unavailable +[phone] Sydnee Saleem MD Unavailable +[phone] Karlene Moya MD Unavailable +[phone] Wilbert Quintero OD Unavailable +[phone] Rod Gauthier DPM Unavailable +[phone] Nallely Hogue RN Unavailable Unavailable Larisa Vargas RN Unavailable Unavailable Francisco Lott MD Unavailable +[phone] Jan Mahmood MD Unavailable +[phone] Brandt Quintana MD Unavailable +[phone] Jan Mahmood MD Unavailable +[phone] Rio Jaquez MD Unavailable +[phone] Dom Eason MD Unavailable +[phone] Jayla Plaza RN Unavailable +[phone] Sydnee Saleem MD Unavailable +[phone] Cristian Barragan MD Unavailable +[phone] Dom Eason MD Unavailable +[phone] Jaimie Vernon RN Unavailable Unavailable Ruth Riddle [...] Unavailable +[phone] Dom Eason MD Unavailable +[phone] Wagner Oliver MD Unavailable + [phone] Laura Epperson NP Unavailable +[phone] Thom Taveras MD Unavailable +[phone] Joesph Crowe MD Unavailable + [phone] Joesph Crowe MD Unavailable + [phone] Adonay Haq MD Unavailable +[phone] Denilson Srinivasan MD Unavailable + [phone] Jason Alvares MD Unavailable Ruth Riddle DPM, Podiatry /Foot and Ankle Surgery Unavailable Omar Carmona MD Primary Care Provider +[phone] Jignesh Mathias MD Unavailable Adonay Haq MD Unavailable +[phone] Omar Carmona MD Unavailable +[phone] Jason Alvares MD Unavailable Jignesh Mathias MD Unavailable Ayad Lopez PhD LP Unavailable +[phone] Gavi Nieto PA-C Unavailable +[phone] Encounter Details Date Type Department Care Team (Late st Contact Info) Description 12/09/2021 [facility] Medical Advice [facility] [address] 4th [place] [address] Rio Jaquez MD [address] [place] [address] 4 [place] [address] Social History Tobacco Use [...] r organizations such as episcopalian groups, unions, [employer]Springleaf Therapeutics or athletic groups, or school groups? No [...] Answer Date Recorded PHQ-2 Score 2 08/27/2021 [facility] - [...] Sex Assigned at Female 09/12/2020 12:05 PM MICA PATCHER Legal Sex Female 3:26 AM MICA PATCHER Gender Identity Female 09/12/2020 12:05 PM MICA PATCHER Sexual Orientation Straight 12/19/2021 10 :44 AM [...] st Contact Info) Description 06/13/2025 6:00 PM MICA PATCHER Ancillary Procedure [facility] Clinic [address] [phone] Omar Carmona MD [address] [place] [address] 092015 06/14/2025 4:00 PM MICA PATCHER Office Visit [facility] [address] [phone] Omar Carmona MD [address] [place] [address] 646265 06/15/2025 12:45 PM MICA PATCHER Therapy Visit [facility] 150 [place] [phone] Jason Alvares MD [address] [place] [address] 894795 Chaya Castillo [facility]TR [facility] 150 [place], [place] 773247 06/19/2025 10:30 AM MICA PATCHER Virtual Visit [address] [phone] Omar Carmona MD [address] [place] [address] 175645 Gerson Santos RPH 06/26/2025 11:00 AM MICA PATCHER Therapy Visit [facility] 150 [place] [phone] Jason Alvares MD [address] [place] [address] [phone] Chaya Castillo OTR [facility] [address] [facility] [place] [address] 07/09/2025 12:45 PM MICA PATCHER Therapy Visit [facility] [address] [phone] Jason Alvares MD 420 [facility] 295 [place] [address] Chaya Castillo, OTR [address] [address] 07/18/2025 3:00 PM MICA PATCHER Office Visit [facility] [address] [phone] Adonay Chapman APRN [facility] 500 [place], [place] 488905 11/05/2025 12:30 PM CDT Lab [facility] [place] 909 [facility] 1st [place] [phone] 11/05/2025 1:45 PM CDT Office Visit [facility] Dermatology [address]rd [place] [phone] Gavi Nieto PA-C Dermatology [address] [place] [address] 41620 11/20/2025 10:30 AM CDT Virtual Visit [address] [place] [address] Marquise Hanley MD [address] [place] [address] 085695 documented as of this encounter Goals Goal [...] Total Score: 5 08/27/19 22 9:25 AM MICA PATCHER documented as of this encounter Care Teams Clinical Team Lead Relationship Specialty Start Date End Date Rio Jaquez MD [address] [place] [address] [phone] PCP - General Family Practice 12/02/10 07/13/24 Omar Carmona MD [address] [place] [address] [phone] PCP - General Family Medicine 07/14/24 Barry Kilpatrick MD [address] [place] [address] [id number] [place], [place] 164635 Neurology 07/19/14 Michelle Henderson RN Nurse Coordinator Neurology 07/19/14 Rio Jaquez MD [address] [place] [address] 03205 Family Practice 10/15/14 Jemima Jaramillo MD english professor 11/20/14 Kelley Chin, TANIA [address] [phone] Nurse Coordinator Cardiology 11/04/15 Sydnee Saleem MD 420 [facility] 508 [place] [address] Cardiology 11/04/15 Karlene Moya MD [address] [place] [address] 23162 Ophthalmology 06/24/17 Wilbert Quintero, OD [address] [place] [address] 46198 Optometry 06/24/17 Rod Gauthier DPM [address] [place] [address] 22514 Commissioning Editor Primary Podiatric Medicine 06/21/18 Nallely Hogue, RN Registered Nurse 02/20/19 11/23/22 Larisa Vargas, TANIA Specialty Wooden Fence Erector Cardiology 04/18/19 03/06/22 Francisco Lott MD [address] [place] [address] 88 [place], [place] 921975 Assigned Rheumatology Provider 05/31/20 12/13/21 Jan Mahmood MD [address] [place] [address] 79209 Gastroenterology 11/05/20 Brandt Quintana MD [address] [place] [address] 39376 Resident 11/05/20 Jan Mahmood MD [address] [place] [address] 2[address] [place] [address] Assigned Gastroenterology Provider 12/01/20 Rio Jaquez MD [address] [place] [address] 4 [place] [address] Assigned PCP 11/17/20 09/30/24 Dom Eason MD [address] [place] [address] 24611 Internal Medicine 12/02/20 Jayla Plaza, RN Specialty Wooden Fence Erector Hepatology 01/09/21 02/13/24 Sydnee Saleem MD [address] [place] [address] 27685 Assigned Heart and Vascular Provider 02/02/21 07/24/22 Cristian Barragan MD [address]45 [place] [address] Assigned Infectious Disease Provider 02/21/21 03/06/22 Dom Eason MD [address] [place] [address] 16240 Assigned Nephrology Provider 04/20/21 01/02/22 Jaimie Vernon, TANIA Specialty Wooden Fence Erector Cardiology 10/28/21 Ruth Riddle DPM, Podiatry/Foot and Ankle Surgery [address] [address] Assigned Musculoskeletal Provider 11/30/21 09/30/23 Luis Arrington MD [address] [place] [address] 85500 Assigned Neuroscience Provider 11/23/21 01/02/22 Jason Alvares MD [address] [place] [address] 93711 Assigned Neuroscience Provider 01/03/22 05/15/22 Marquise Hanley MD [address] [place] [address] 13936 Endocrinology, Diabetes, and Metabolism 03/05/22 Vlad Ramey MD [address] [place] [address] 804755 Cardiovascular Disease 05/07/22 Joesph Crowe MD [address] [place] [address] 46570 Surgery 05/07/22 Luis Arrington MD [address] [place] [address] 488205 Assigned Neuroscience Provider 05/16/22 05/14/23 Michelle Padilla RN Specialty Wooden Fence Erector Cardiology 07/03/22 Vlad Ramey MD [address] [place] [address] 69480 Assigned Heart and Vascular Provider 07/25/22 05/28/23 Marquise Hanley MD [address] [place] [address] 94357 Assigned Endocrinology Provider 08/15/22 Dom Eason MD [address] [place] [address] 98881 Assigned Nephrology Provider 11/28/22 02/19/23 Wagner Oliver MD [address] [place] [address] Critical Care 12/15/22 Laura Epperson NP 717 [facility] 1932 [place] [address] Assigned Nephrology Provider 02/20/23 08/30/24 Thom Taveras MD [facility] [address], [address] [place] [address] Assigned Cancer Care Provider 02/06/23 08/20/23 Joesph Crowe MD [address] [place] [address] 48731 Surgery 03/17/23 Joesph Crowe MD [address] [place] [address] 94067 Assigned Surgical Provider 04/03/23 09/30/24 Adonay Haq MD 9 [place] [address] Internal Medicine 06/14/23OctoberDenilson MD [address] [facility] [address] [place] [address] Assigned Heart and Vascular Provider 05/29/23 11/28/24 Jason Alvares MD 420 [facility] 295 [place], [place] 481535 Assigned Neuroscience Provider 05/15/23 11/28/24 Ruth Riddle DPM, Podiatry/Foot and Ankle Surgery [address] [place], [place] 754077 Assigned Musculoskeletal Provider 10/22/23 Jignesh Mathias MD [address] [place] [address] 400805 Gastroenterology 09/25/24 Adonay Haq MD [address] [place] [address] 386005 Assigned PCP 10/01/24 12/28/24 Omar Carmona MD [address] [place] [address] 096775 Assigned PCP 12/29/24 Jason Alvares MD [address] [place] [address] 295 [place], [place] 792935 Assigned Neuroscience Provider 12/29/24 Jignesh Mathias MD [address] [place] [address] [phone] Assigned Surgical Provider 12/29/24 Ayad Lopez, PhD LP [address] [place] [address] 256715 Assigned Behavioral Health Provider 02/28/25 Gavi Nieto, PA-C [address] [place] [address] [phone] Physician Cleaning Validation Consultant Dermatology 03/19/25 documented as of this encounter
--- OUTSIDE RECORDS SUMMARY | 2025-06-08 22:55 | XMS_ITS | Encounter Summary ---
Author Organization [facility] Address [address] [place] [address] 86399 Care Team Providers Care Holter Scanning Technician Name Role Phone Barry Kilpatrick MD Unavailable Michelle Henderson RN Unavailable [phone] Rio Jaquez MD Unavailable +[phone] Jemima Jaramillo MD Unavailable Unavai Kelley Bautista RN Unavailable +[phone] Sydnee Saleem MD Unavailable +[phone] Karlene Moya MD Unavailable +[phone] Wilbert Quintero OD Unavailable +[phone] Rod Gauthier DPM Unavailable Jan Mahmood MD Unavailable +[phone] Brandt Quintana MD Unavailable Jan Mahmood MD Unavailable +[phone] Rio Jaquez MD Unavailable +[phone] Dom Eason MD Unavailable Jaimie Vernon RN Unavailable Unavailable Marquise Hanley MD Unavailable +[phone] Vlad Ramey MD Unavailable +[phone] Joesph Crowe MD Unavailable +[phone] Michelle Padilla RN Unavailable Unavaila ble Marquise Hanley MD Unavailable +[phone] Wagner Oliver MD Unavailable + [phone] Laura Epperson NP Unavailable +[phone] Joesph Crowe MD Unavailable + [phone] Joesph Crowe MD Unavailable +[phone] Adonay Haq MD Unavailable +[phone] OctoberDenilson MD Unavailable + [phone] Jason Alvares MD Unavailable Ruth Riddle DPM, Podiatry /Foot and Ankle Surgery Unavailable Omar Carmona MD Primary Care Provider [phone] Jignesh Mathias MD Unavailable Adonay Haq MD Unavailable +[phone] Omar Carmona MD Unavailable +[phone] Jason Alvares MD Unavailable Jignesh Mathias MD Unavailable Ayad Lopez PhD LP Unavailable +[phone] Gavi Nieto PA-C Unavailable +[phone] Encounter Details Date Type Department Care Team (Late st Contact Info) Description 07/14/2024 [facility]ology [facility] [address] [address] Gracia Akins, RN Social History [...] Answer Date Recorded PHQ-2 Score 3 07/14/2024 [facility] [place] of Occupat ional Health - Occupational Stress [...] Sex Assigned at Female 09/12/2020 12:05 PM ANESTHESIOLOGIST ASSISTANT Legal Sex Female 3:26 AM ANESTHESIOLOGIST ASSISTANT Gender Identity Female 09/12/2020 12:05 PM ANESTHESIOLOGIST ASSISTANT Sexual Orientation Straight 12/19/2021 10 :44 AM CDT Occupation Industry Job Start Date Job End Date on disability for FMS Not on file Not on file Not on file disabled Not on file Not on file Not on file documented as of this encounter Plan of Treatment Upcoming Encounters Date Type Department Care Team (Late st Contact Info) Description 06/13/2025 6:00 PM ANESTHESIOLOGIST ASSISTANT Ancillary Procedure [facility] CT Clinic [address] [place] [address] Omar Carmona MD [address] [place] [address] [phone] 06/14/2025 4:00 PM ANESTHESIOLOGIST ASSISTANT Office Visit [facility] [place] [address] [phone] Omar Carmona MD [address] [place] [address] 06/15/2025 12:45 PM ANESTHESIOLOGIST ASSISTANT Therapy Visit [facility] [address] [place] [phone] Jason Alvares MD [address] [place] [address] Chaya Castillo, OTR FV [address] [id number] 06/19/2025 10:30 AM ANESTHESIOLOGIST ASSISTANT Virtual Visit [facility] Primary [facility] Clinic [address] [place] [phone] Omar Carmona MD [address] [place] [address] Gerson Santos [facility] 06/26/2025 11:00 AM ANESTHESIOLOGIST ASSISTANT Therapy Visit [facility] [address] [place] [phone] Jason Alvares MD [address] [place] [address] [phone] Chaya Castillo, OTR [facility] 150 [place], [place] 441417 07/09/2025 12:45 PM ANESTHESIOLOGIST ASSISTANT Therapy Visit [facility] [address] [place] [phone] Jason Alvares MD [address] [place] [address] 460915 Chaya Castillo, OTR [address] [address] 07/18/2025 3:00 PM ANESTHESIOLOGIST ASSISTANT Office Visit [facility] Heart [address] [phone] Adonay Chapman APRN [facility] 500 [place], [place] 738125 11/05/2025 12:30 PM CDT Lab [facility] Lab [address] [place] [phone] 11/05/2025 1:45 PM CDT Office Visit [facility] Dermatology Clinic [address] [phone] Gavi Nieto PA-C Dermatology [address] [place] [address] 11/20/2025 10:30 AM CDT Virtual Visit [address] [phone] Marquise Hanley MD [address] [place] [address] 290245 documented as of this encounter Goals Goal [...] Depression Total Score: 10 024 9:34 AM ANESTHESIOLOGIST ASSISTANT documented as of this encounter Care Teams Holter Scanning Technician Relationship Specialty Start Date End Date Ofstedal, Omar R, MD [address] [place] [address] [phone] PCP - General Family Medicine 07/14/24 Barry Kilpatrick MD [address] [place] [address] [id number] [place], [place] 181985 Neurology 07/19/14 Michelle Henderson I, RN Nurse Coordinator Neurology 07/19/14 Rio Jaquez MD [address] [place] [address] 747825 Family Practice 10/15/14 Jemima Jaramillo MD [address] [place] [address] 66[address] thread spooler 11/20/14 Kelley Chin, TANIA [address] 326805 Nurse Coordinator Cardiology 11/04/15 Sydnee Saleem MD [address] [place] [address] 508 [place], [place] 510535 Cardiology 11/04/15 Karlene Moya MD [address] [place] [address] [phone] Ophthalmology 06/24/17 Wilbert Quintero, OD [address] [place] [address] [phone] Optometry 06/24/17 Rod Gauthier DPM [address] [place] [address] 49538 Extracorporeal Technician Primary Podiatric Medicine 06/21/18 Jan Mahmood MD 6 [facility] 2[address] [place] [address] Gastroenterology 11/05/20 Brandt Quintana MD [address] [place] [address] Resident 11/05/20 Jan Mahmood MD [address] [place] [address] Assigned Gastroenterology Provider 12/01/20 Rio Jaquez MD [address] [place] [address]20 Assigned PCP 11/17/20 09/30/24 Dom Eason MD [address] [place] [address] 353 [place] [address] Internal Medicine 12/02/20 Jaimie Vernon, TANIA Specialty Recruitment Specialist Cardiology 10/28/21 Marquise Hanley MD [address] [place] [address] 56573 Endocrinology, Diabetes, and Metabolism 03/05/22 Vlad Ramey MD [address] [place] [address] 28853 Cardiovascular Disease 05/07/22 Joesph Crowe MD [address] [place] [address] 41662 Surgery 05/07/22 Michelle Padilla, RN Specialty Recruitment Specialist Cardiology 07/03/22 Marquise Hanley MD [address] [place] [address] 36418 Assigned Endocrinology Provider 08/15/22 Wagner Oliver MD [address] [place] [address] Critical Care 12/15/22 Laura Epperson NP 717 [facility] [place] [facility] [address] [place] [address] Assigned Nephrology Provider 02/20/23 08/30/24 Joesph Crowe MD [address] [place] [address] 32435 Surgery 03/17/23 Joesph Crowe MD [address] [place] [address] 29185 Assigned Surgical Provider 04/03/23 09/30/24 Adonay Haq MD [address] [place] [address] 24073 Internal Medicine 06/14/23 Denilson Srinivasan MD [address] [place] [address] Assigned Heart and Vascular Provider 05/29/23 11/28/24 Jason Alvares MD [address] [facility] 295 [place], [place] 551125 Assigned Neuroscience Provider 05/15/23 11/28/24 Ruth Riddle DPM, Podiatry/Foot and Ankle Surgery [address] [place] [address] Assigned Musculoskeletal Provider 10/22/23 Jignesh Mathias MD [address] [place] [address] 278225 Gastroenterology 09/25/24 Adonay Haq MD [address] [place] [address] 771435 Assigned PCP 10/01/24 12/28/24 Omar Carmona MD [address] [place] [address] 054255 Assigned PCP 12/29/24 Jason Alvares MD [address] [place] [address] 295 [place], [place] 512615 Assigned Neuroscience Provider 12/29/24 Jignesh Mathias MD [address] [place] [address] 31384 Assigned Surgical Provider 12/29/24 Ayad Lopez, PhD LP [address] [place] [address] 817275 Assigned Behavioral Health Provider 02/28/25 Gavi Nieto PA-C [address] [place] [address] [place] [address] Physician Clinical Ob Dermatology 03/19/25 documented as of this encounter
--- OUTSIDE RECORDS SUMMARY | 2025-06-08 22:55 | XMS_ITS | Encounter Summary ---
Author Organization [facility] Address [address] [place] [address] 10296 Care Team Providers Care Associate Media Planner Name Role Phone Rio Jaquez MD Primary Care Provider Barry Kilpatrick MD Unavailable Michelle Henderson I RN Unavailable Rio Jaquez MD Unavailable [phone] Jemima Jaramillo MD Unavailable Unavai Kelley Bautista RN Unavailable [phone] Sydnee Saleem MD Unavailable [phone] Karlene Moya MD Unavailable +[phone] Wilbert Quintero OD Unavailable +[phone] Rod GauthierM Unavailable +[phone] Jan Mahmood MD Unavailable [phone] Brandt Quintana MD Unavailable +[phone] Jan Mahmood MD Unavailable +[phone] Rio Jaquez MD Unavailable +[phone] Dom Eason MD Unavailable + [phone] [place], Jaimie RN Unavailable Unavailable Marquise Hanley MD Unavailable +[phone] Vlad Ramey MD Unavailable +[phone] Joesph Crowe MD Unavailable + [phone] Michelle Padilla RN Unavailable Unavaila ble Marquise Hanley MD Unavailable +[phone] Wagner Oliver MD Unavailable +[phone] Laura Epperson NP Unavailable +[phone] Joesph Crowe MD Unavailable +[phone] Joesph Crowe MD Unavailable + [phone] Adonay Haq MD Unavailable [phone] Denilson Srinivasan MD Unavailable + [phone] Jason Alvares MD Unavailable Ruth RiddleM, Podiatry /Foot and Ankle Surgery Unavailable Omar Carmona MD Primary Care Provider [phone] Jignesh Mathias MD Unavailable Adonay Haq MD Unavailable [phone] Omar Carmona MD Unavailable [phone] Jason Alvares MD Unavailable Jignesh Mathias MD Unavailable Ayad Lopez PhD LP Unavailable +[phone] Gavi Nieto PA-C Unavailable [phone] Encounter Details Date Type Department Care Team (Late st Contact Info) Description 06/13/2024 [facility] [address] 4th [place] [address] Rio Jaquez MD [address] [place] [address] 4 [place] [address] Social History Tobacco Use Types Packs/Day Years [...] Answer Date Recorded PHQ-2 Score 2 02/28/2024 [facility] - Occupational Stress Questionnaire [...] Sex Assigned at Female 09/12/2020 12:05 PM TRUCK DRIVER HELPER Legal Sex Female 3:26 AM TRUCK DRIVER HELPER Gender Identity Female 09/12/2020 12:05 PM TRUCK DRIVER HELPER Sexual Orientation Straight 12/19/2021 10 :44 AM CDT Occupation Industry Job Start Date Job End Date on disability for FMS Not on file Not on file Not on file disabled Not on file Not on file Not on file documented as of this encounter Plan of Treatment Upcoming Encounters Date Type Department Care Team (Late st Contact Info) Description 06/13/2025 6:00 PM TRUCK DRIVER HELPER Ancillary Procedure [facility] CT Clinic [address] [place] [address] Omar Carmona MD [address] [place] [address] 60786 06/14/2025 4:00 PM TRUCK DRIVER HELPER Office [facility] [address] [phone] Omar Carmona MD [address] [place] [address] 653115 06/15/2025 12:45 PM TRUCK DRIVER HELPER Therapy [facility] [address] [facility] [place] [phone] Jason Alvares MD [address] [place] [address] 56[address] Chaya Castillo OTR [facility] 150 [place], [place] 427517 06/19/2025 10:30 AM TRUCK DRIVER HELPER Virtual Visit [facility] Care [address] [phone] Omar Carmona MD [address] [place] [address] 76819 Gerson Santos, [facility] 06/26/2025 11:00 AM TRUCK DRIVER HELPER Therapy Visit [facility] [place] [address] [place] [phone] Jason Alvares MD [address] [place] [address] 534125 Chaya Castillo, OTR [facility] [address] [facility] [place] [address] 07/09/2025 12:45 PM TRUCK DRIVER HELPER Therapy Visit [facility] [place] 150 [place] [phone] Jason Alavres MD 420 [facility] 295 [place] [address] Chaya Castillo, OTR [facility] 150 [place] [address] 07/18/2025 3:00 PM TRUCK DRIVER HELPER Office Visit [facility] Heart [address] [phone] Adonay Chapman APRN [facility] 500 [place], [place] 695755 11/05/2025 12:30 PM CDT Lab [facility] Lab [address] [place] [phone] 11/05/2025 1:45 PM CDT Office [facility] Dermatology [address] [phone] Gavi Nieto PA-C Dermatology [address] [place] [address] 11/20/2025 10:30 AM CDT Virtual Visit [address] [phone] Marquise Hanley MD [address] [place] [address] 36736 documented as of this encounter Goals Goal [...] documented as of this encounter Care Teams Associate Media Planner Relationship Specialty Start Date End Date Rio Jaquez MD [address] [place] [address] 4 [place] [address] PCP - General Family Practice 12/02/10 07/13/24 Omar Carmona MD [address] [place] [address] 134255 PCP - General Family Medicine 07/14/24 Barry Kilpatrick MD [address] [place] [address] [id number] [place], [place] 064525 Neurology 07/19/14 Michelle Henderson I, RN Nurse Coordinator Neurology 07/19/14 Rio Jaquez MD [address] [place] [address] 155135 Family Practice 10/15/14 Jemima Jaramillo MD electronic die maker 11/20/14 Kelley Chin, TANIA [facility] [address] [place] [address] 855305 Nurse Coordinator Cardiology 11/04/15 Sydnee Saleem MD [address] [place] [address] 508 [place], [place] 156675 Cardiology 11/04/15 Karlene Moya MD [address] [place] [address] 564155 Ophthalmology 06/24/17 Wilbert Quintero OD 9 [place] [address] Optometry 06/24/17 Rod Gauthier DPM [address] [place] [address] 79410 Padding Gluer Primary Podiatric Medicine 06/21/18 Jan Mahmood MD [address] [place] [address] 31839 Gastroenterology 11/05/20 Brandt Quintana MD [address] [place] [address] 54892 Resident 11/05/20 Jan Mahmood MD [address] [place] [address] 39827 Assigned Gastroenterology Provider 12/01/20 Rio Jaquez MD [address] [place] [address] 552905 Assigned PCP 11/17/20 09/30/24 Dom Eason MD [address] 605984 Internal Medicine 12/02/20 Jaimie Vernon, RN Specialty Access Rep Cardiology 10/28/21 Marquise Hanley MD [address] [place] [address] 94302 Endocrinology, Diabetes, and Metabolism 03/05/22 Vlad Ramey MD [address] [place] [address] 74889 Cardiovascular Disease 05/07/22 Joesph Crowe MD [address] [place] [address] 24941 Surgery 05/07/22 Michelle Padilla, RN Specialty Access Rep Cardiology 07/03/22 Marquise Hanley MD [address] [place] [address] 59964 Assigned Endocrinology Provider 08/15/22 Wagner Oliver MD [address] [place] [address] Critical Care 12/15/22 Laura Epperson NP [address] [place] [address] 1932 [place] [address] Assigned Nephrology Provider 02/20/23 08/30/24 Joesph Crowe MD [address] [place] [address] 66164 Surgery 03/17/23 Joesph Crowe MD [address] [place] [address] 81088 Assigned Surgical Provider 04/03/23 09/30/24 Adonay Haq MD 909 [place] [address] Internal Medicine 06/14/23OctoberDenilson MD [address] [facility] [address] [place] [address] Assigned Heart and Vascular Provider 05/29/23 11/28/24 Jason Alvares MD [address] [place] [address] 20201 Assigned Neuroscience Provider 05/15/23 11/28/24 Ruth Riddle DPM, Podiatry/Foot and Ankle Surgery [address] [place] [place], [place] 475107 Assigned Musculoskeletal Provider 10/22/23 Jignesh Mathias MD [address] [place] [address] 865455 Gastroenterology 09/25/24 Adonay Haq MD [address] [place] [address] 44714 Assigned PCP 10/01/24 12/28/24 Omar Carmona MD [address] [place] [address] 52996 Assigned PCP 12/29/24 Jason Alvares MD [address] [place] [address] 68235 Assigned Neuroscience Provider 12/29/24 Jignesh Mathias MD [address] [place] [address] 69658 Assigned Surgical Provider 12/29/24 Ayad Lopez, PhD [address] [place] [address] 07999 Assigned Behavioral Health Provider 02/28/25 Gavi Nieot PANavinC [address] [place] [address] 473375 Physician Lapping Machine Operator Dermatology 03/19/25 documented as of this encounter
--- OUTSIDE RECORDS SUMMARY | 2025-06-08 22:55 | XMS_ITS | Encounter Summary ---
Author Organization [facility] Address [address] [place] [address] Care Team Providers Care Blockers Skiver Name Role Phone Rio Jaquez MD Primary Care Provider Barry Kilpatrick MD Unavailable Michelle Henderson I RN Unavailable Rio Jaquez MD Unavailable +[phone] Jemima Jaramillo MD Unavailable Unavai Kelley Bautista RN Unavailable +[phone] Sydnee Saleem MD Unavailable +[phone] Karlene Moya MD Unavailable +[phone] Wilbert Quintero OD Unavailable +[phone] Rod GauthierM Unavailable +[phone] Jan Mahmood MD Unavailable +[phone] Brandt Quintana MD Unavailable Jan Mahmood MD Unavailable +[phone] Rio Jaquez MD Unavailable +[phone] Dom Eason MD Unavailable + [phone] [place], Jaimie RN Unavailable Unavailable Marquise Hanley MD Unavailable +[phone] Vlad Ramey MD Unavailable +[phone] Joesph Crowe MD Unavailable + [phone] Michelle Padilla RN Unavailable Unavaila ble Marquise Hanley MD Unavailable +[phone] Wagner Oliver MD Unavailable +[phone] Laura Epperson NP Unavailable +[phone] Joesph Crowe MD Unavailable + [phone] Joesph Crowe MD Unavailable + [phone] Adonay Haq MD Unavailable +[phone] Denilson Srinivasan MD Unavailable + [phone] Jason Alvares MD Unavailable Ruth RiddleM, Podiatry /Foot and Ankle Surgery Unavailable Omar Carmona MD Primary Care Provider [phone] Jignesh Mathias MD Unavailable Adonay Haq MD Unavailable [phone] Omar Carmona MD Unavailable +[phone] Jason Alvares MD Unavailable Jignesh Mathias MD Unavailable Ayad Lopez PhD LP Unavailable +[phone] Gavi Nieto PA-C Unavailable +[phone] Encounter Details Date Type Department Care Team (Late st Contact Info) Description 05/29/2024 [facility] [address] [address] Marquise Hanley MD [address] [place] [address] Social History Tobacco Use Types Packs/Day Years Used Date Smoking Tobacco: Every Day Cigarettes 0.5 42.8 Started: 08/09/1982 Other Smokeless Tobacco: Never Comments:1 PPD Alcohol Use Standard Drinks/Week Comments Not [...] Answer Date Recorded PHQ-2 Score 2 02/28/2024 [facility] - [...] Sex Assigned at Female 09/12/2020 12:05 PM SURVEYOR MINE Legal Sex Female 3:26 AM SURVEYOR MINE Gender Identity Female 09/12/2020 12:05 PM SURVEYOR MINE Sexual Orientation Straight 12/19/2021 10 :44 AM CDT Occupation Industry Job Start Date Job End Date on disability for FMS Not on file Not on file Not on file disabled Not on file Not on file Not on file documented as of this encounter Plan of Treatment Upcoming Encounters Date Type Department Care Team (Late st Contact Info) Description 06/13/2025 6:00 PM SURVEYOR MINE Ancillary Procedure [facility] [address] 1st [place] [address] Omar Carmona MD [address] [place] [address] 06/14/2025 4:00 PM SURVEYOR MINE Office [facility] [address] [phone] Omar Carmona MD [address] [place] [address] 06/15/2025 12:45 PM SURVEYOR MINE Therapy [facility] [address] [place] [phone] Jason Alvares MD [address] [place] [address] Chaya Castillo, OTR [facility] [address] [place], [place] 796977 06/19/2025 10:30 AM SURVEYOR MINE Virtual Visit [facility] [address] [phone] Omar Carmona MD [address] [place] [address] Gerson Santos [facility] 06/26/2025 11:00 AM SURVEYOR MINE Therapy Visit [facility] [place] [address] [place] [phone] Jason Alvares MD [address] [place] [address] 552975 Chaya Castillo, OTR [facility] [address] [facility] [address] 07/09/2025 12:45 PM SURVEYOR MINE Therapy Visit [facility] [place] 150 [place] [address] Jason Alvares MD 420 [facility] 295 [place] [address] Chaya Castillo, OTR [facility] 150 [place] [address] 07/18/2025 3:00 PM SURVEYOR MINE Office [facility] Heart [address] [phone] Adonay Chapman APRN [facility] 500 [place], [place] 9[address]265 11/05/2025 12:[address] [facility] [address]st [place] [phone] 11/05/2025 1:45 PM CDT Office [facility] Dermatology [address] [phone] Gavi Nieto PAJimmy Dermatology [address] [place] [address] 11/20/2025 10:30 AM CDT Virtual Visit [address] [address] Marquise Hanley MD [address] [place] [address] 19080 documented as of this encounter Goals Goal [...] documented as of this encounter Care Teams Blockers Skiver Relationship Specialty Start Date End Date Rio Jaquez MD [address] [place] [address] 4 [place] [address] PCP - General Family Practice 12/02/10 07/13/24 Omar Carmona MD [address] [place] [address] 960675 PCP - General Family Medicine 07/14/24 Barry Kilpatrick MD [address] [place] [address] [id number] [place], [place] 093705 Neurology 07/19/14 iMchelle Henderson I, RN Nurse Coordinator Neurology 07/19/14 Rio Jaquez MD [address] [place] [address] 4 [place], [place] 463055 Family Practice 10/15/14 Jemima Jaramillo MD editor sound 11/20/14 Kelley Chin, RN [address] 609165 Nurse Coordinator Cardiology 11/04/15 Sydnee Saleem MD [address] [place] [address] 508 [place], [place] [phone] Cardiology 11/04/15 Karlene Moya MD [address] [place] [address] 789225 Ophthalmology 06/24/17 Wilbert Quintero OD 9 [place], [place] 060635 Optometry 06/24/17 Rod Gauthier DPM [address] [place] [address] [phone] Gamer Primary Podiatric Medicine 06/21/18 Jan Mahmood MD [address] [place] [address] 870745 Gastroenterology 11/05/20 Brandt Quintana MD [address] [place] [address] [phone] Resident 11/05/20 Jan Mahmood MD [address] [place] [address] 597475 Assigned Gastroenterology Provider 12/01/20 Rio Jaquez MD [address] 618555 Assigned PCP 11/17/20 09/30/24 Dom Eason MD [address] 588224 Internal Medicine 12/02/20 Jaimie Vernon, RN Specialty Director Of Provider Relations Cardiology 10/28/21 Marquise Hanley MD [address] [place] [address] 78455 Endocrinology, Diabetes, and Metabolism 03/05/22 Vlad Ramey MD [address] [place] [address] 12909 Cardiovascular Disease 05/07/22 Joesph Crowe MD [address] [place] [address] 84652 Surgery 05/07/22 Michelle Padilla, RN Specialty Director Of Provider Relations Cardiology 07/03/22 Marquise Hanley MD [address] [place] [address] 72406 Assigned Endocrinology Provider 08/15/22 Wagner Oliver MD [address] [place] [address] Critical Care 12/15/22 Laura Epperson NP [address] [place], [place] [address] [place] [address] Assigned Nephrology Provider 02/20/23 08/30/24 Joesph Crowe MD [address] [place] [address] 22203 Surgery 03/17/23 Joesph Crowe MD [address] [place] [address] 01476 Assigned Surgical Provider 04/03/23 09/30/24 Adonay Haq MD [address] [place] [address] 11730 Internal Medicine 06/14/23OctoberDenilson MD [address] [place] [address] Assigned Heart and Vascular Provider 05/29/23 11/28/24 Jason Alvares MD [address] [place] [address] 14512 Assigned Neuroscience Provider 05/15/23 11/28/24 Ruth Riddle DPM, Podiatry/Foot and Ankle Surgery [address] [place], [place] 494617 Assigned Musculoskeletal Provider 10/22/23 Jignesh Mathias MD [address] [place] [address] 23882 Gastroenterology 09/25/24 Adonay Haq MD [address] [place] [address]1018 Assigned PCP 10/01/24 12/28/24 Omar Carmona MD [address] [place] [address] 29467 Assigned PCP 12/29/24 Jason Alvares MD [address] [place] [address] 9[address]20 Assigned Neuroscience Provider 12/29/24 Jignesh Mathias MD [address] [place] [address] 14705 Assigned Surgical Provider 12/29/24 Ayad Lopez, PhD LP [address] [place] [address] Assigned Behavioral Health Provider 02/28/25 Gavi Nieto, PANavinC [address] [place] [address] 935975 Physician It Program Engagement Director Dermatology 03/19/25 documented as of this encounter
--- OUTSIDE RECORDS SUMMARY | 2025-06-08 22:55 | XMS_ITS | Encounter Summary ---
Author Organization [facility] Address [address] [place] [address] 25753 Care Team Providers Care Electrical Prospector Name Role Phone Rio Jaquez MD Primary Care Provider + [phone] Barry Kilpatrick MD Unavailable Michelle Henderson RN Unavailable [phone] Rio Jaquez MD Unavailable +[phone] Jemima Jaramillo MD Unavailable Unavai Kelley Bautista RN Unavailable +[phone] Sydnee Saleem MD Unavailable +[phone] Karlene Moya MD Unavailable +[phone] Wilbert Quintero OD Unavailable +[phone] Rod GauthierM Unavailable +[phone] Nallely Hogue RN Unavailable Unavailable Larisa Vargas RN Unavailable Unavailable Jan Mahmood MD Unavailable +[phone] Brandt Quintana MD Unavailable +[phone] Jan Mahmood MD Unavailable +[phone] Rio Jaquez MD Unavailable +[phone] Dom Eason MD Unavailable +[phone] Jayla Plaza RN Unavailable +[phone] Sydnee Saleem MD Unavailable +[phone] Cristian Barragan MD Unavailable +[phone] Dom Eason MD Unavailable + [phone] Jaimie Vernon RN Unavailable Unavailable Ruth Riddle DPM, Podiatry /Foot and Ankle Surgery Unavailable Luis Arrington MD Unavailable +[phone] Jason Alvares MD Unavailable Marquise Hanley MD Unavailable +[phone] Vlad Ramey MD Unavailable +[phone] Joesph Crowe MD Unavailable + [phone] Luis Arrington MD Unavailable +[phone] Michelle Padilla RN Unavailable Unavaila ble Vlad Ramey MD Unavailable +[phone] Marquise Hanley MD Unavailable +[phone] Dom Eason MD Unavailable +[phone] Wagner Oliver MD Unavailable + [phone] Laura Epperson NP Unavailable +[phone] Thom Taveras MD Unavailable +[phone] Joesph Crowe MD Unavailable + [phone] Joesph Crowe MD Unavailable + [phone] Adonay Haq MD Unavailable [phone] OctoberDenilson MD Unavailable + [phone] Jason Alvares MD Unavailable Ruth Riddle DPM, Podiatry /Foot and Ankle Surgery Unavailable Omar Carmona MD Primary Care Provider [phone] Jignesh Mathias MD Unavailable Adonay Haq MD Unavailable +[phone] Omar Carmona MD Unavailable +[phone] Jason Alvares MD Unavailable Jignesh Mathias MD Unavailable Ayad Lopez PhD LP Unavailable +[phone] Gavi Nieto PA-C Unavailable +[phone] Encounter Details Date Type Department Care Team (Late st Contact Info) Description 12/26/2021 [facility] Medical Advice [address] [address] Crystal Castellanos RN Social History [...] Answer Date Recorded PHQ-2 Score 2 08/27/2021 [facility] - [...] Sex Assigned at Female 09/12/2020 12:05 PM DISTRIBUTION CENTER SUPERVISOR Legal Sex Female 3:26 AM DISTRIBUTION CENTER SUPERVISOR Gender Identity Female 09/12/2020 12:05 PM DISTRIBUTION CENTER SUPERVISOR Sexual Orientation Straight 12/19/2021 10 :44 [...] st Contact Info) Description 06/13/2025 6:00 PM DISTRIBUTION CENTER SUPERVISOR Ancillary Procedure [facility] [address] [phone] Omar Carmona MD [address] [place] [address] 06/14/2025 4:00 PM DISTRIBUTION CENTER SUPERVISOR Office Visit [facility] [address] 4th [place] [phone] Omar Carmona MD [address] [place] [address] 06/15/2025 12:45 PM DISTRIBUTION CENTER SUPERVISOR Therapy Visit [facility] [place] [phone] Jason Alvares MD [address] [place] [address] Chaya Castillo OTR [facility] 150 [place] [address] 06/19/2025 10:30 AM DISTRIBUTION CENTER SUPERVISOR Virtual Visit [facility] [address] [place] [address] 4th [place] [phone] Omar Carmona MD [address] [place] [address] 649995 Gerson Santos RPH 06/26/2025 11:00 AM DISTRIBUTION CENTER SUPERVISOR Therapy Visit [address] [phone] Jason Alvares MD [address] [place] [address] Chaya Casitllo OTR [facility] 150 [place] [address] 07/09/2025 12:45 PM DISTRIBUTION CENTER SUPERVISOR Therapy Visit [facility] 150 [place] [phone] Jason Alvares MD [address] [place] [address] Chaya Castillo OTR [facility] 150 [place] [address] 07/18/2025 3:00 PM DISTRIBUTION CENTER SUPERVISOR Office Visit [facility] [address] [phone] Adonay Chapman APRN PIPE PROCESSOR 500 [place] [address] 11/05/2025 12:30 PM CDT Lab [facility] [address]st [place] [phone] 11/05/2025 1:45 PM CDT Office Visit [facility] [address]rd [place] [phone] Gavi Nieto PA-C Dermatology [address] [place] [address] [phone] 11/20/2025 10:30 AM CDT Virtual Visit [address] [phone] Marquise Hanley MD [address] [place] [address] 42471 documented as of this encounter Goals Goal [...] Total Score: 5 08/27/19 22 9:25 AM DISTRIBUTION CENTER SUPERVISOR documented as of this encounter Care Teams Electrical Prospector Relationship Specialty Start Date End Date Rio Jaquez MD [address] [place] [address] 07651 PCP - General Family Practice 12/02/10 07/13/24 Omar Carmona MD [address] [place] [address] 785765 PCP - General Family Medicine 07/14/24 Barry Kilpatrick MD [address] [place] [address] [id number] [place], [place] 871675 Neurology 07/19/14 Michelle Henderson I, RN Nurse Coordinator Neurology 07/19/14 Rio Jaquez MD [address] [place] [address] 4 [place], [place] 453405 Family Practice 10/15/14 Jemima Jaramillo MD route inspector 11/20/14 Kelley Chin, TANIA [facility] 909 [place], [place] 569455 Nurse Coordinator Cardiology 11/04/15 Sydnee Saleem MD [address] [place] [address] 508 [place], [place] 089575 Cardiology 11/04/15 Karlene Moya MD [address] [place] [address] 870835 Ophthalmology 06/24/17 Wilbert Quintero, OD [address] [place] [address] Optometry 06/24/17 Rod Gauthier DPM [address] [place] [address]455 Pull Up Hand Primary Podiatric Medicine 06/21/18 Nallely Hogue, RN Registered Nurse 02/20/19 11/23/22 Larisa Vargas, TANIA Specialty Cooker Meal Cardiology 04/18/19 03/06/22 Jan Mahmood MD 516 [facility] 2A [place] [address] Gastroenterology 11/05/20 [place] [address] [place] [address]243 Resident 11/05/20 Jan Mahmood MD 6 [facility] 2A [place] [address] Assigned Gastroenterology Provider 12/01/20 Rio Jaquez MD 909 [facility] 4 [place], [place] 779105 Assigned PCP 11/17/20 09/30/24 Dom Eason MD 717 [facility] 353 [place], [place] 313054 Internal Medicine 12/02/20 Jayla Plaza, RN Specialty Cooker Meal Hepatology 01/09/21 02/13/24 Sydnee Saleem MD [address] [place] [address] [place] [address] [phone] Assigned Heart and Vascular Provider 02/02/21 07/24/22 Cristian Barragan MD [address]45 [place] [address] Assigned Infectious Disease Provider 02/21/21 03/06/22 Dom Eason MD [address] [place] [address] 353 [place] [address] Assigned Nephrology Provider 04/20/21 01/02/22 Jaimie Vernon, RN Specialty Cooker Meal Cardiology 10/28/21 Ruth Riddle DPM, Podiatry/Foot and Ankle Surgery [address] [address] Assigned Musculoskeletal Provider 11/30/21 09/30/23 Luis Arrington MD [address] [place] [address] 159485 Assigned Neuroscience Provider 11/23/21 01/02/22 Jason Alvares MD [address] [place] [address] 295 [place], [place] 304145 Assigned Neuroscience Provider 01/03/22 05/15/22 Marquise Hanley MD [address] [place] [address] 82996 Endocrinology, Diabetes, and Metabolism 03/05/22 Vlad Ramey MD [address] [place] [address] 537055 Cardiovascular Disease 05/07/22 Joesph Crowe MD [address] [place] [address] 21204 Surgery 05/07/22 Luis Arrington MD [address] [place] [address] 39019 Assigned Neuroscience Provider 05/16/22 05/14/23 Michelle Padilla, RN Specialty Cooker Meal Cardiology 07/03/22 Vlad Ramey MD [address] [place] [address] 267995 Assigned Heart and Vascular Provider 07/25/22 05/28/23 Marquise Hanley MD [address] [place] [address] Assigned Endocrinology Provider 08/15/22 Dom Eason MD 7 [facility] 353 [place] [address] Assigned Nephrology Provider 11/28/22 02/19/23 Wagner Oliver MD [address] [place] [address] Critical Care 12/15/22 Laura Epperson NP 7 [facility] [address] [place] [address] Assigned Nephrology Provider 02/20/23 08/30/24 Thom Taveras MD [facility] [address] [place] [address] Assigned Cancer Care Provider 02/06/23 08/20/23 Joesph Crowe MD [address] [place] [address] 76106 Surgery 03/17/23 Joesph Crowe MD [address] [place] [address] 75864 Assigned Surgical Provider 04/03/23 09/30/24 Adonay Haq MD [address] [place] [address] 78508 Internal Medicine 06/14/23OctoberDenilson MD [address] [facility]00 [place] [address] Assigned Heart and Vascular Provider 05/29/23 11/28/24 Jason Alvares MD [address] [place] [address]883 Assigned Neuroscience Provider 05/15/23 11/28/24 Ruth Riddle DPM, Podiatry/Foot and Ankle Surgery [address]Z [address] [place] [address] 87087 Assigned Musculoskeletal Provider 10/22/23 Jignesh Mathias MD [address] [place] [address] 91497 Gastroenterology 09/25/24 Adonay Haq MD [address] [place] [address] 36598 Assigned PCP 10/01/24 12/28/24 Omar Carmona MD [address] [place] [address] 249165 Assigned PCP 12/29/24 Jason Alvares MD [address] [place] [address] 295 [place], [place] 468655 Assigned Neuroscience Provider 12/29/24 Jignesh Mathias MD [address] [place] [address] 129665 Assigned Surgical Provider 12/29/24 Ayad Lopez, PhD LP [address] [place] [address] Assigned Behavioral Health Provider 02/28/25 Gavi Nieto, PA-C [address] [place] [address] 648375 Physician Ecdis N Navigation Operator Dermatology 03/19/25 documented as of this encounter
--- OUTSIDE RECORDS SUMMARY | 2025-06-08 22:56 | XMS_ITS | Encounter Summary ---
Author Organization [facility] Address [address] [place] [address] Care Team Providers Care Or Rn Name Role Phone Rio Jaquez MD Primary Care Provider Barry Kilpatrick MD Unavailable Michelle Henderson RN Unavailable [phone] Rio Jaquez MD Unavailable [phone] Jemima Jaramillo MD Unavailable Unavai Kelley Bautista RN Unavailable [phone] Sydnee Saleem MD Unavailable +[phone] Karlene Moya MD Unavailable +[phone] Wilbert Quintero OD Unavailable +[phone] Rod Gauthier DPM Unavailable +[phone] Nallely Hogue RN Unavailable Unavailable Larisa Vargas RN Unavailable Unavailable Francisco Lott MD Unavailable +[phone] Greg Ortega MD Unavailable +[phone] Jan Mahmood MD Unavailable +[phone] Brandt Quintana MD Unavailable +[phone] Jan Mahmood MD Unavailable Rio Jaquez MD Unavailable +[phone] Dom Eason MD Unavailable Jayla Plaza RN Unavailable Sydnee Saleem MD Unavailable Cristian Barragan MD Unavailable [phone] Dom Eason MD Unavailable + [phone] Jaimie Vernon RN Unavailable Unavailable Ruth Riddle DPM, Podiatry /Foot and Ankle Surgery Unavailable Luis Arrington MD Unavailable +[phone] Jason Alvares MD Unavailable Marquise Hanley MD Unavailable +[phone] Vlad Ramey MD Unavailable +[phone] Joesph Crowe MD Unavailable +[phone] Luis Arrington MD Unavailable +[phone] Michelle Pdailla RN Unavailable Unavaila ble Vlad Ramey MD Unavailable +[phone] Marquise Hanley MD Unavailable +[phone] Dom Eason MD Unavailable Wagner Oliver MD Unavailable + [phone] Laura Epperson NP Unavailable [phone] Thom Taveras MD Unavailable +[phone] Joesph Crowe MD Unavailable +[phone] Joesph Crowe MD Unavailable +[phone] Adonay Haq MD Unavailable [phone] OctoberDenilson MD Unavailable +[phone] Jason Alvares MD Unavailable Ruth RiddleM, Podiatry /Foot and Ankle Surgery Unavailable Omar Caromna MD Primary Care Provider Jignesh Mathias MD Unavailable Adonay Haq MD Unavailable Omar Carmona MD Unavailable Jason Alvares MD Unavailable Jignesh Mathias MD Unavailable Ayad Lopez PhD LP Unavailable [phone] Gavi Nieto-Keisha Unavailable +[phone] Reason for Referral * Diagnostic Imaging Dexa (Routine) - Closed Specialty Diagnoses / Procedures Referred By Good zhu Referred To Contact Diagnoses Vitamin D deficiency Bony abnormality Asymptomatic menopausal state Procedures Dexa hip/pelvis/spine* Rio Jaquez MD [address] [place] [address] Phone: tel: fax: Referral ID Status Reason Start Date Expiration Date Visits Re quested Visits Authorized [id number] Closed 11/28/2021 11/28/2022 1 1 Encounter Details Date Type Department Care Team (Late st Contact Info) Description 11/25/2021 [facility] [place] [facility] [address] [place] [address] Rio Jaquez MD [address] [place] [address] Vitamin D deficiency (Primary Dx); Bony [...] Answer Date Recorded PHQ-2 Score 2 08/27/2021 [facility] Occupat ional Health - Occupational Stress [...] Sex Assigned at Female 09/12/2020 12:05 PM OCCUPATIONAL MEDICINE PHYSICIAN Legal Sex Female 3:26 AM OCCUPATIONAL MEDICINE PHYSICIAN Gender Identity Female 09/12/2020 12:05 PM OCCUPATIONAL MEDICINE PHYSICIAN Sexual Orientation Straight 12/19/2021 10 :44 AM [...] st Contact Info) Description 06/13/2025 6:00 PM OCCUPATIONAL MEDICINE PHYSICIAN Ancillary Procedure [facility] [address] [place] [phone] Omar Carmona MD [address] [place] [address] 460225 06/14/2025 4:00 PM OCCUPATIONAL MEDICINE PHYSICIAN Office Visit [facility] [address] [address] Omar Carmona MD [address] [place] [address] 668475 06/15/2025 12:45 PM OCCUPATIONAL MEDICINE PHYSICIAN Therapy Visit [facility] [address] [place] [phone] Jason Alvares MD [address] [place] [address] 859135 Chaya Castillo, OTR [facility] [address] [place], [place] [phone] 06/19/2025 10:30 AM OCCUPATIONAL MEDICINE PHYSICIAN Virtual Visit [facility] [address] [address] Omar Carmona MD [address] [place] [address] [phone] Gerson Santos RPH 06/26/2025 11:00 AM OCCUPATIONAL MEDICINE PHYSICIAN Therapy Visit [facility] [address] [place] [phone] Jason Alvares MD [address] [place] [address] Chaya Castillo OTR [address] [address] 07/09/2025 12:45 PM OCCUPATIONAL MEDICINE PHYSICIAN Therapy Visit [facility] [address] [phone] Jason Alvares MD [address] [place] [address] Chaya Castillo OTR [address] [address] 07/18/2025 3:00 PM OCCUPATIONAL MEDICINE PHYSICIAN Office Visit [facility] [address] [phone] Adonay Chapman APRN [address] 123925 11/05/2025 12:30 PM CDT Lab [facility] [address] [phone] 11/05/2025 1:45 PM CDT Office Visit [facility] [address] [place] [phone] Gavi Nieto PA-C Dermatology [address] [place] [address] 11/20/2025 10:30 AM CDT Virtual Visit [address] [phone] Marquise Hanley MD [address] [place] [address] 089385 documented as of this encounter Goals Goal Patient Goal Type Associated Problems Recent Progress Patient-Stated? Author Quit smoking / using tobacco Lifestyle Rio Will MD Note: 06/25/14 planned quit date documented as of this encounter Results * Dexa hip/pelvis/spine* (12/04/2021 10:30 AM CDT) Anatomical Region Laterality Modality Dexa Bone Mineral Den sity Narrative 12/04/2021 2:14 PM [address]T [address] [address] Phone: Fax: Patient name: Carol Arellano Patient demographics: 51 year old White Female History: Evaluation of Bone Density, History of Fracture, terminal gauger use of steroids, Low Vit D, Post Menopausal and Tobacco Habit - Current Current treatments: Antiseizure medications, Thyroid Medications, Vitamin D Scan: ScriptPad Impression The most negative and valid T-score [...] correlation recommended Technical quality Satisfactory. Principal result tour sales representative: Narendra Dickinson MD, [facility] Division of Endocrinology and Diabetes Department [...] LSC = least significant changes at the [facility] Imaging Center (historical data) AP spine = [...] Total Score: 5 08/27/19 22 9:25 AM OCCUPATIONAL MEDICINE PHYSICIAN documented as of this encounter Care Teams Or Rn Relationship Specialty Start Date End Date Rio Jaquez MD [address] [place] [address]43 PCP - General Family Practice 12/02/10 07/13/24 Omar Carmona MD [address] [place] [address]39 PCP - General Family Medicine 07/14/24 Barry Kilpatrick MD [address] [place] [address] [id number] [place] [address] Neurology 07/19/14 Michelle Henderson I, RN Nurse Coordinator Neurology 07/19/14 Rio Jaquez MD [address] [place] [address] 8[address]56 Family Practice 10/15/14 Jemima Jaramillo MD roving teller 11/20/14 Kelley Chin, TANIA [place] [id number] [place] [address] Nurse Coordinator Cardiology 11/04/15 Sydnee Saleem MD 420 [facility] 508 [place] [address] Cardiology 11/04/15 Karlene Moya MD [address] [place] [address] 872025 Ophthalmology 06/24/17 Wilbert Quintero, OD [address] [place] [address] 940745 Optometry 06/24/17 Rod Gauthier DPM [address] [place] [address] 414305 Roofer Helper Primary Podiatric Medicine 06/21/18 Nallely Hogue, TANIA Registered Nurse 02/20/19 11/23/22 Larisa Vargas, TANIA Specialty Er Nurse Cardiology 04/18/19 03/06/22 Francisco Lott MD [address] [place] [address] 88 [place], [place] 938335 Assigned Rheumatology Provider 05/31/20 12/13/21 Greg Ortega MD [address] [place] [address] 257635 Assigned Surgical Provider 06/23/20 12/06/21 Jan Mahmood MD [address] [place], [place] [address]B 2A [place], [place] [phone] Gastroenterology 11/05/20 Brandt Quintana MD 1414 [place] [address] Resident 11/05/20 Jan Mahmood MD [address] [facility] [address] 2A [place] [address] Assigned Gastroenterology Provider 12/01/20 Rio Jaquez MD 909 [facility] [address] 4 [place], [place] 878115 Assigned PCP 11/17/20 09/30/24 Dom Eason MD [address] [place] [address] 38419 Internal Medicine 12/02/20 Jayla Plzaa, RN Specialty Er Nurse Hepatology 01/09/21 02/13/24 Sydnee Saleem MD [address] [place] [address] [phone] Assigned Heart and Vascular Provider 02/02/21 07/24/22 Cristian Barragan MD [address] [place] [address] 9[address] Assigned Infectious Disease Provider 02/21/21 03/06/22 Dom Eason MD [address] [place] [address] 144[address] Assigned Nephrology Provider 04/20/21 01/02/22 Jaimie Vernon, RN Specialty Er Nurse Cardiology 10/28/21 Ruth Riddle DPM, Podiatry/Foot and Ankle Surgery [address] [place] [address] Assigned Musculoskeletal Provider 11/30/21 09/30/23 Luis Arrington MD [address] [place] [address] Assigned Neuroscience Provider 11/23/21 01/02/22 Jason Alvares MD [address] [place] [address] 616475 Assigned Neuroscience Provider 01/03/22 05/15/22 Marquise Hanley MD [address] [place] [address] 87291 Endocrinology, Diabetes, and Metabolism 03/05/22 Vlad Ramey MD [address] [place] [address] 582445 Cardiovascular Disease 05/07/22 Joesph Crowe MD [address] [place] [address] 34171 Surgery 05/07/22 Luis Arrington MD [address] [place] [address] 18620 Assigned Neuroscience Provider 05/16/22 05/14/23 Michelle Padilla RN Specialty Er Nurse Cardiology 07/03/22 Vlad Ramey MD [address] [place] [address] 674135 Assigned Heart and Vascular Provider 07/25/22 05/28/23 Marquise Hanley MD [address] [place] [address] 08102 Assigned Endocrinology Provider 08/15/22 Dom Eason MD 717 [facility] [address] [place] [address] Assigned Nephrology Provider 11/28/22 02/19/23 Wagner Oliver MD [address] [place] [address] Critical Care 12/15/22 Laura Epperson NP [address] [place] [address] 1932 [place] [address] Assigned Nephrology Provider 02/20/23 08/30/24 Tohm Taveras MD [address] [place] [address], [address] [place] [address] Assigned Cancer Care Provider 02/06/23 08/20/23 Joesph Crowe MD [address] [place] [address] 78256 Surgery 03/17/23 Joesph Crowe MD [address] [place] [address] 36127 Assigned Surgical Provider 04/03/23 09/30/24 Adonay Haq MD [address] [place] [address] 30034 Internal Medicine 06/14/23OctoberDenilson MD [address] [place] [address] Assigned Heart and Vascular Provider 05/29/23 11/28/24 Jason Alvares MD [address] [place] [address] 8[address] Assigned Neuroscience Provider 05/15/23 11/28/24 Ruth Riddle DPM, Podiatry/Foot and Ankle Surgery [address] [place] [address] Assigned Musculoskeletal Provider 10/22/23 Jignesh Mathias MD [address] [place] [address] 53344 Gastroenterology 09/25/24 Adonay Haq MD [address] [place] [address] 65043 Assigned PCP 10/01/24 12/28/24 Omar Carmona MD [address] [place] [address] 946[address] Assigned PCP 12/29/24 Jason Alvares MD [address] [place] [address] 61539 Assigned Neuroscience Provider 12/29/24 Jignesh Mathias MD [address] [place] [address] 19154 Assigned Surgical Provider 12/29/24 Ayad Lopez, PhD LP [address] [place] [address] Assigned Behavioral Health Provider 02/28/25 Gavi Nieto PA-C [address] [place] [address] Physician Television Installer Dermatology 03/19/25 documented as of this encounter
--- OUTSIDE RECORDS SUMMARY | 2025-06-08 22:56 | XMS_ITS | Encounter Summary ---
Author Organization [facility] Address [address] [place] [address] Care Team Providers Care Ignition Mechanic Name Role Phone Rio Jaquez MD Primary Care Provider Barry Kilpatrick MD Unavailable Michelle Henderson RN Unavailable [phone] Rio Jaquez MD Unavailable [phone] Jemima Jaramillo MD Unavailable Unavai Kelley Bautista RN Unavailable [phone] Sydnee Saleem MD Unavailable [phone] Karlene Moya MD Unavailable [phone] Wilbert Quintero OD Unavailable +[phone] Rod Gauthier DPM Unavailable +[phone] Nallely Hogue RN Unavailable Unavailable Larisa Vargas RN Unavailable Unavailable Francisco Lott MD Unavailable +[phone] Greg Ortega MD Unavailable [phone] Jan Mahmood MD Unavailable +[phone] Brandt Quintana MD Unavailable +[phone] Jan Mahmood MD Unavailable Rio Jaquez [...] MD Unavailable Joesph Crowe MD Unavailable [phone] Joesph Crowe MD Unavailable [phone] Adonay Haq MD Unavailable [phone] Denilson Srinivasan MD Unavailable +[phone] Jason Alvares MD Unavailable Ruth RiddleM, Podiatry /Foot and Ankle Surgery Unavailable Omar Carmona MD Primary Care Provider [phone] Jignesh Mathias MD Unavailable Adonay Haq MD Unavailable [phone] Omar Carmona MD Unavailable [phone] Jason Alvares MD Unavailable Jignesh Mathias MD Unavailable Ayad Lopez PhD LP Unavailable [phone] Gavi Nieto-C Unavailable +[phone] Encounter Details Date Type Department Care Team (Late st Contact Info) Description 11/14/2021 [facility] Medical Advice [facility]ology Clinic [address] [address] Jayla Plaza, RN Folate deficiency [...] r organizations such as faith groups, unions, [employer] or athletic groups, or school groups? [...] Answer Date Recorded PHQ-2 Score 2 08/27/2021 [facility] Occupat ional Health - [...] Sex Assigned at Female 09/12/2020 12:05 PM WEBSPHERE MESSAGE BROKER DEVELOPER Legal Sex Female 3:26 AM WEBSPHERE MESSAGE BROKER DEVELOPER Gender Identity Female 09/12/2020 12:05 PM WEBSPHERE MESSAGE BROKER DEVELOPER Sexual Orientation Straight 12/19/2021 10 :44 [...] st Contact Info) Description 06/13/2025 6:00 PM WEBSPHERE MESSAGE BROKER DEVELOPER Ancillary Procedure [facility] Imaging Center CT Clinic [address] [place] [address] Omar Carmona MD [address] [place] [address] 326325 06/14/2025 4:00 PM WEBSPHERE MESSAGE BROKER DEVELOPER Office Visit [facility] [address] [place] [address] Omar Carmona MD [address] [place] [address] 06/15/2025 12:45 PM WEBSPHERE MESSAGE BROKER DEVELOPER Therapy Visit [facility] [address] [place] [phone] Jason Alvares MD [address] [place] [address] Chaya Castillo OTR [facility] 150 [place] [address] 06/19/2025 10:30 AM WEBSPHERE MESSAGE BROKER DEVELOPER Virtual Visit [facility] [address] [place] [address] 4th [place] [phone] Omar Carmona MD [address] [place] [address] 719645 Gerson Santos [facility] 06/26/2025 11:00 AM WEBSPHERE MESSAGE BROKER DEVELOPER Therapy Visit [address] [phone] Jason Alvares MD [address] [place] [address] Chaya Castillo OTR [facility] 150 [place] [address] 07/09/2025 12:45 PM WEBSPHERE MESSAGE BROKER DEVELOPER Therapy Visit [facility] [address] [place] [phone] Jason Alvares MD [address] [place] [address] Chaya Castillo OTR [facility] 150 [place] [address] 07/18/2025 3:00 PM WEBSPHERE MESSAGE BROKER DEVELOPER Office Visit [facility] Heart [address] [phone] Adonay Chapman APRN [facility] 500 [place] [address] 11/05/2025 12:[address] [facility] Lab [address] [place] [phone] 11/05/2025 1:45 PM CDT Office Visit [facility] Dermatology [address] [phone] Gavi Nieto PA-C Dermatology [address] [place] [address] 11/20/2025 10:30 AM CDT Virtual Visit [address] [address] Marquise Hanley MD [address] [place] [address] documented as of this encounter Goals Goal [...] Total Score: 5 08/27/19 22 9:25 AM WEBSPHERE MESSAGE BROKER DEVELOPER documented as of this encounter Care Teams Ignition Mechanic Relationship Specialty Start Date End Date Rio Jaquez MD [address] [place] [address] 4 [place], [place] 899675 PCP - General Family Practice 12/02/10 07/13/24 Omar Carmona MD [address] [place] [address] 725735 PCP - General Family Medicine 07/14/24 Barry Kilpatrick MD [address] [place] [address] BA1303IL [place] [address] Neurology 07/19/14 Michelle Henderson RN Nurse Coordinator Neurology 07/19/14 Rio Jaquez MD [address] [place] [address]20 Family Practice 10/15/14 Jemima Jaramillo MD spiral weaver 11/20/14 Kelley Chin, TANIA [address] 741325 Nurse Coordinator Cardiology 11/04/15 Sydnee Saleem MD [address] [place] [address] 508 [place], [place] 228125 Cardiology 11/04/15 Karlene Moya MD [address] [place] [address] 989125 Ophthalmology 06/24/17 Wilbert Quintero, OD [address] [place] [address] 621370 [phone] Optometry 06/24/17 Rod Gauthier DPM [address] [place] [address] 33203 Commission Auditor Primary Podiatric Medicine 06/21/18 Nallely Hogue, RN Registered Nurse 02/20/19 11/23/22 Larisa Vargas, TANIA Specialty Dry House Tender Cardiology 04/18/19 03/06/22 Francisco Lott MD [address] [place] [address] 265[address] Assigned Rheumatology Provider 05/31/20 12/13/21 Greg Ortega MD [address] [place] [address] 20726 Assigned Surgical Provider 06/23/20 12/06/21 Jan Mahmood MD [address] [place] [address] Gastroenterology 11/05/20 Brandt Quintana MD [address] [place] [address] Resident 11/05/20 Jan Mahmood MD [address] [place] [address] 19919 Assigned Gastroenterology Provider 12/01/20 Rio Jaquez MD [address] [place] [address] 17084 Assigned PCP 11/17/20 09/30/24 Dom Eason MD [address] [place] [address] 72017 Internal Medicine 12/02/20 Jayla Plaza, RN Specialty Dry House Tender Hepatology 01/09/21 02/13/24 Sydnee Saleem MD [address] [place] [address] [place] [address] 6[address] Assigned Heart and Vascular Provider 02/02/21 07/24/22 Phan Coello MD Assigned Neuroscience Provider 02/21/21 11/22/21 [place] [address] [place] [address]9610 Assigned Infectious Disease Provider 02/21/21 03/06/22 Dom Eason MD [address] [address]37 Assigned Nephrology Provider 04/20/21 01/02/22 Jaimie Vernon, RN Specialty Dry House Tender Cardiology 10/28/21 Ruth Riddle, DPM, Podiatry/Foot and Ankle Surgery [address] [address] Assigned Musculoskeletal Provider 11/30/21 09/30/23 Luis Arrington MD [address] [place] [address] 85926 Assigned Neuroscience Provider 11/23/21 01/02/22 Jason Alvares MD [address] [place] [address] 25678 Assigned Neuroscience Provider 01/03/22 05/15/22 Marquise Hanley MD [address] [place] [address] 59137 Endocrinology, Diabetes, and Metabolism 03/05/22 Vlad Ramey MD [address] [place] [address] 77563 Cardiovascular Disease 05/07/22 Joesph Crowe MD [address] [place] [address] 93931 Surgery 05/07/22 Luis Arrington MD [address] [place] [address] 16536 Assigned Neuroscience Provider 05/16/22 05/14/23 Michelle Padilla, TANIA Specialty Dry House Tender Cardiology 07/03/22 Vlad Ramey MD [address] [place] [address] 97757 Assigned Heart and Vascular Provider 07/25/22 05/28/23 Marquise Hanley MD [address] [place] [address] 63061 Assigned Endocrinology Provider 08/15/22 Dom Eason MD [address] [place] [address] 37345 Assigned Nephrology Provider 11/28/22 02/19/23 Wagner Oliver MD [address] [place] [address] Critical Care 12/15/22 Laura Epperson NP 717 [facility] 1932 [place] [address] Assigned Nephrology Provider 02/20/23 08/30/24 Thom Taveras MD [facility] [address], [address] [place] [address] Assigned Cancer Care Provider 02/06/23 08/20/23 Joesph Crowe MD [address] [place] [address] 369055 Surgery 03/17/23 Joesph Crowe MD [address] [place] [address] 742295 Assigned Surgical Provider 04/03/23 09/30/24 Adonay Haq MD [address] [place] [address] 50766 Internal Medicine 06/14/23OctoberDenilson MD [address] [facility] [address] [place] [address] Assigned Heart and Vascular Provider 05/29/23 11/28/24 Jason Alvares MD 420 [facility] 295 [place] [address] Assigned Neuroscience Provider 05/15/23 11/28/24 Ruth Riddle DPM, Podiatry/Foot and Ankle Surgery [address] [place] [address] Assigned Musculoskeletal Provider 10/22/23 Jignesh Mathias MD [address] [place] [address] 694735 Gastroenterology 09/25/24 Adonay Haq MD [address] [place] [address]455 Assigned PCP 10/01/24 12/28/24 Omar Carmona MD [address] [place] [address] 786565 Assigned PCP 12/29/24 Jason Alvares MD [address] [place] [address] 345075 Assigned Neuroscience Provider 12/29/24 Jignesh Mathias MD [address] [place] [address] 03945 Assigned Surgical Provider 12/29/24 Ayad Lopez, PhD LP [address] [place] [address] 943445 Assigned Behavioral Health Provider 02/28/25 Gavi Nieto, PA-C [address] [place] [address] 71764 Physician Machine Dyer Dermatology 03/19/25 documented as of this encounter
--- OUTSIDE RECORDS SUMMARY | 2025-06-08 22:56 | XMS_ITS | Encounter Summary ---
Author Organization [place] Address [address] [place] [address] 11680 Care Team Providers Care Sales Associate Fishing Name Role Phone Rio Jaquez MD Primary Care Provider Barry Kilpatrick MD Unavailable Michelle Henderson RN Unavailable [phone] Rio Jaquez MD Unavailable [phone] Jemima Jaramillo MD Unavailable Unavai Kelley Bautista RN Unavailable [phone] Sydnee Saleem MD Unavailable +[phone] Karlene Moya MD Unavailable [phone] Wilbert Quintero OD Unavailable [phone] Rod Gauthier DPM Unavailable [phone] Nallely Hogue RN Unavailable Unavailable Larisa Vargas RN Unavailable Unavailable Francisco Lott MD Unavailable [phone] Greg Ortega MD Unavailable [phone] Jan Mahmood MD Unavailable [phone] Brandt Quintana MD Unavailable [phone] Jan Mahmood MD Unavailable Rio Jaquez MD Unavailable [phone] Dom Eason MD Unavailable Jayla Plaza RN Unavailable Sydnee Saleem MD Unavailable Phan Coello MD Unavailable Unavailable Cristian Barragan MD Unavailable Dom Eason MD Unavailable Jaimie Vernon RN Unavailable Unavailable Ruth Riddle DPM, Podiatry /Foot and Ankle Surgery Unavailable Luis Arringtno MD Unavailable Jason Alvares MD Unavailable Marquise Hanley MD Unavailable [phone] Vlad Ramey MD Unavailable Joesph Crowe MD Unavailable Luis Arrington MD Unavailable Michelle Padilla RN Unavailable Unavaila ble Vlad Ramey MD Unavailable Marquise Hanley MD Unavailable [phone] Dom Eason MD Unavailable Wagner Oliver MD Unavailable Laura Epperson NP Unavailable [phone] Thom Taveras MD Unavailable Joesph Crowe MD Unavailable +[phone] Joesph Crowe MD Unavailable +[phone] Adonay Haq MD Unavailable [phone] Denilson Srinivasan MD Unavailable [phone] Jason Alvares MD Unavailable Ruth RiddleM, Podiatry /Foot and Ankle Surgery Unavailable Omar Carmona MD Primary Care Provider [phone] Jignesh Mathias MD Unavailable Adonay Haq MD Unavailable [phone] Omar Carmona MD Unavailable [phone] Jason Alvares MD Unavailable Jignesh Mathias MD Unavailable Ayad Lopez PhD LP Unavailable [phone] Gavi Nieto-C Unavailable [phone] Encounter Details Date Type Department Care Team [...] Sex Assigned at Female 09/12/2020 12:05 PM ZINC ETCHER Legal Sex Female 3:26 AM ZINC ETCHER Gender Identity Female 09/12/2020 12:05 PM ZINC ETCHER Sexual Orientation Straight 12/19/2021 10 :44 AM [...] COVID-19? No / Unsure 09/09/2021 11:42 AM ZINC ETCHER documented as of this encounter Plan of Treatment Upcoming Encounters Date Type Department Care Team (Late st Contact Info) Description 06/13/2025 6:00 PM ZINC ETCHER Ancillary Procedure [facility] Imaging Center CT Clinic [address] [place] [phone] Omar Carmona MD [address] [place] [address] 16332 06/14/2025 4:00 PM ZINC ETCHER Office Visit [facility] Primary Care Clinic [address]th [place] [phone] Omar Carmona MD [address] [place] [address] 10075 06/15/2025 12:45 PM ZINC ETCHER [facility] [place] [address] [place] [address] Jason Alvares MD [address] [place] [address] 363105 Chaya Castillo, OTR [facility] 150 [place], [place] 081147 06/19/2025 10:30 AM ZINC ETCHER Virtual Visit [facility] Primary Care Clinic [address] [place] [address] 4th [place] [address] Omar Carmona MD [address] [place] [address] Gerson Santos [facility] 06/26/2025 11:00 AM ZINC ETCHER [facility] 150 [place] [phone] Jason Alvares MD [address] [place] [address] 494025 Chaya Castillo, OTR [facility] 150 [place] [address] 07/09/2025 12:45 PM ZINC ETCHER [facility] 150 [place] [phone] Jason Alvares MD [address] [place] [address] [phone] Chaya Castillo, OTR [facility] [address] [place] [address] 07/18/2025 3:00 PM ZINC ETCHER Office Visit [facility] Heart Clinic [address] [phone] Adonay Chapman APRN RN LACTATION CONSULTANT 500 [place] [address] 11/05/2025 12:30 PM CDT Lab [facility] Lab [address] [place] [phone] 11/05/2025 1:45 PM CDT Office Visit [facility] Dermatology Clinic [address] [place] [phone] Gavi Nieto PA-C Dermatology [address] [place] [address] 11/20/2025 10:30 AM CDT Virtual Visit [address] [place] [phone] Marquise Hanley MD [address] [place] [address] 9[address] documented as of this encounter Goals Goal [...] Total Score: 5 08/27/19 22 9:25 AM ZINC ETCHER documented as of this encounter Care Teams Sales Associate Fishing Relationship Specialty Start Date End Date Rio Jaquez MD [address] [place] [address] 85108 PCP - General Family Practice 12/02/10 07/13/24 Omar Carmona MD [address] [place] [address] 55455 PCP - General [facility] Medicine 07/14/24 Barry Kilpatrick MD [address] [place] [address] [id number] [place], [place] 006855 Neurology 07/19/14 Michelle Henderson I, RN Nurse Coordinator Neurology 07/19/14 Rio Jaquez MD [address] [place] [address] 4 [place], [place] 020915 Family Practice 10/15/14 Jemima Jaramillo MD commercial portfolio manager 11/20/14 Kelley Chin, TANIA [address] [address] Nurse Coordinator Cardiology 11/04/15 Sydnee Saleem MD 420 [facility] 508 [place], [place] 911605 Cardiology 11/04/15 Karlene Moya MD [address] [place] [address] 419715 Ophthalmology 06/24/17 Wilbert Quintero, PETEY [address] [place] [address] 567915 Optometry 06/24/17 Rod Gauthier DPM [address] [place] [address] 056[address] Graphic Coordinator Primary Podiatric Medicine 06/21/18 Nallely Hogue, RN Registered Nurse 02/20/19 11/23/22 Larisa Vargas, RN Specialty Wet And Dry Sugar Bin Operator Cardiology 04/18/19 03/06/22 Francisco Lott MD 515 [facility] 88 [place] [address] Assigned Rheumatology Provider 05/31/20 12/13/21 Greg Ortega MD 9 [place] [address] Assigned Surgical Provider 06/23/20 12/06/21 Jan Mahmood MD 6 [facility] 2A [place] [address] Gastroenterology 11/05/20 Brandt Quintana MD [facility] [place] [address] Resident 11/05/20 Jan Mahmood MD 6 [facility] 2A [place] [address] Assigned Gastroenterology Provider 12/01/20 Rio Jaquez MD [address] [address] Assigned PCP 11/17/20 09/30/24 Dom Eason MD 717 [facility] 353 [place] [address] Internal Medicine 12/02/20 Jayla Plaza, RN Specialty Wet And Dry Sugar Bin Operator Hepatology 01/09/21 02/13/24 Sydnee Saleem MD 6550 [facility] [address] [place] [address] Assigned Heart and Vascular Provider 02/02/21 07/24/22 Phan Coello MD Assigned Neuroscience Provider 02/21/21 11/22/21 Cristian Barragan MD 2945 [place] [address] Assigned Infectious Disease Provider 02/21/21 03/06/22 Dom Eason MD [address] [place] [address] 353 [place] [address] Assigned Nephrology Provider 04/20/21 01/02/22 Jaimie Vernon, TANIA Specialty Wet And Dry Sugar Bin Operator Cardiology 10/28/21 Ruth Riddle, DPM, Podiatry/Foot and Ankle Surgery 9[address]95 [facility] 300 [place], [place] 612847 Assigned Musculoskeletal Provider 11/30/21 09/30/23 Luis Arrington MD 909 [place], [place] 593885 Assigned Neuroscience Provider 11/23/21 01/02/22 Jason Alvares MD 420 [facility] 295 [place], [place] 489715 Assigned Neuroscience Provider 01/03/22 05/15/22 Marquise Hanley MD [address] [place] [address] 51850 Endocrinology, Diabetes, and Metabolism 03/05/22 Vlad Ramey MD [address] [place] [address] 09932 Cardiovascular Disease 05/07/22 Joesph Crowe MD [address] [place] [address] 34186 Surgery 05/07/22 Luis Arrington MD [address] [place] [address] 36360 Assigned Neuroscience Provider 05/16/22 05/14/23 Michelle Padilla RN Specialty Wet And Dry Sugar Bin Operator Cardiology 07/03/22 Vlad Ramey MD [address] [place] [address] 45069 Assigned Heart and Vascular Provider 07/25/22 05/28/23 Marquise Hanley MD [address] [place] [address] 599[address] Assigned Endocrinology Provider 08/15/22 Dom Eason MD [address] [place] [address] 775[address] Assigned Nephrology Provider 11/28/22 02/19/23 Wagner Oliver MD [address] [address] Critical Care 12/15/22 Laura Epperson NP 717 [facility] 1932 [place] [address] Assigned Nephrology Provider 02/20/23 08/30/24 Thom Taveras MD [address] [facility], R105 [place], [place] 141354 Assigned Cancer Care Provider 02/06/23 08/20/23 Joesph Crowe MD [address] [place] [address] 821105 Surgery 03/17/23 Joesph Crowe MD [address] [place] [address] 585725 Assigned Surgical Provider 04/03/23 09/30/24 Adonay Haq MD [address] [place] [address] 343515 Internal Medicine 06/14/23OctoberDenilson MD [address] [facility] [address] [place], [place] 410615 Assigned Heart and Vascular Provider 05/29/23 11/28/24 Jason Alvares MD 420 [facility] 295 [place], [place] 585025 Assigned Neuroscience Provider 05/15/23 11/28/24 Ruth Riddle, DPM, Podiatry/Foot and Ankle Surgery [address] [place], [place] 477167 Assigned Musculoskeletal Provider 10/22/23 Jignesh Mathias MD [address] [place] [address] 313775 Gastroenterology 09/25/24 Adonay Haq MD [address] [place] [address] Assigned PCP 10/01/24 12/28/24 Omar Carmona MD [address] [place] [address] Assigned PCP 12/29/24 Jason Alvares MD [address] [place] [address] Assigned Neuroscience Provider 12/29/24 Jignesh Mathias MD [address] [place] [address] 986445 Assigned Surgical Provider 12/29/24 Ayad Lopez, PhD LP [address] [place] [address] 691375 Assigned Behavioral Health Provider 02/28/25 Gavi Nieto PANavinC [address] [place] [address] Physician Feeder Loader Dermatology 03/19/25 documented as of this encounter
--- OUTSIDE RECORDS SUMMARY | 2025-06-08 22:56 | XMS_ITS | Encounter Summary ---
Author Organization [place] Address [address] [place] [address] 19673 Care Team Providers Care Gastroenterology Nurse Practitioner Name Role Phone Rio Jaquez MD Primary Care Provider Barry Kilpatrick MD Unavailable Michelle Henderson RN Unavailable [phone] Rio Jaquez MD Unavailable [phone] Jemima aJramillo MD Unavailable Unavai Kelley Bautista RN Unavailable [phone] Sydnee Saleem MD Unavailable [phone] Karlene Moya MD Unavailable [phone] Wilbert Quintero OD Unavailable [phone] Rod Gauthier DPM Unavailable [phone] Nallely Hogue RN Unavailable Unavailable Larisa Vargas RN Unavailable Unavailable Franicsco Lott MD Unavailable [phone] Greg Ortega MD Unavailable [phone] Jan Mahmood MD Unavailable [phone] Brandt Quintana MD Unavailable [phone] Jan Mahmood MD Unavailable Rio Jaquez [...] Unavailable [phone] Thom Taveras MD Unavailable [phone] Joesph Crowe MD Unavailable [phone] Joesph Crowe MD Unavailable [phone] Adonay Haq MD Unavailable [phone] Denilson Srinivasan MD Unavailable [phone] Jason Alvares MD Unavailable Ruth RiddleM, Podiatry /Foot and Ankle Surgery Unavailable Omar Carmona MD Primary Care Provider [phone] Jignesh Mathias MD Unavailable Adonay Haq MD Unavailable [phone] Omar Carmona MD Unavailable [phone] Jason Alvares MD Unavailable Jignesh Mathias MD Unavailable Ayad Lopez PhD LP Unavailable [phone] Gavi Nieto-C Unavailable [phone] Encounter Details Date Type Department Care Team (Late st Contact Info) Description 11/14/2021 [facility] Heart Clinic [address] [address] [facility] Social History Tobacco Use Types Packs/Day [...] 08/27/2021 [facility] [...] Assigned at Female 09/12/2020 12:05 PM METAL FINISHER Legal Sex Female 3:26 AM METAL FINISHER Gender Identity Female 09/12/2020 12:05 PM METAL FINISHER Sexual Orientation Straight 12/19/2021 10 :44 [...] st Contact Info) Description 06/13/2025 6:00 PM METAL FINISHER Ancillary Procedure [facility] Imaging Center CT Clinic [address] [place] [address] Omar Carmona MD [address] [place] [address] 073625 06/14/2025 4:00 PM METAL FINISHER Office Visit [facility] Primary Care Clinic [address] [place] [address] Omar Carmona MD [address] [place] [address] 06/15/2025 12:45 PM METAL FINISHER Therapy Visit [facility] [place] [phone] Jason Alvares MD [address] [place] [address] Chaya Castillo OTR [facility] 150 [place] [address] 06/19/2025 10:30 AM METAL FINISHER Virtual Visit [facility] Primary Care Clinic [address] [place] [address] 4th [place] [phone] Omar Carmona MD [address] [place] [address] 547365 Gerson Santos [facility] 06/26/2025 11:00 AM METAL FINISHER Therapy Visit [facility] 150 [place] [phone] Jason Alvares MD [address] [place] [address] Chaya Castillo OTR [facility] 150 [place] [address] 07/09/2025 12:45 PM METAL FINISHER [facility] 150 [place] [phone] Jason Alvares MD [address] [place] [address] Chaya Castillo OTR [facility] [place] 150 [place] [address] 07/18/2025 3:00 PM METAL FINISHER Office Visit [facility] Heart [address] [phone] Adonay Chapman APRN [facility] 500 [place] [address] 11/05/2025 12:30 PM CDT Lab [facility] Lab [address] [place] [phone] 11/05/2025 1:45 PM CDT Office Visit [facility] Dermatology [address] [place] [phone] Gavi Nieto PA-C Dermatology [address] [place] [address] 11/20/2025 10:30 AM CDT Virtual Visit [address] [phone] Marquise Hanley MD [address] [place] [address] 522845 documented as of this encounter Goals Goal [...] Total Score: 5 08/27/19 22 9:25 AM METAL FINISHER documented as of this encounter Care Teams Gastroenterology Nurse Practitioner Relationship Specialty Start Date End Date Rio Jaquez MD [address] [place] [address] 76368 PCP - General Family Practice 12/02/10 07/13/24 Omar Carmona MD [address] [place] [address] 46487 PCP - General Family Medicine 07/14/24 Barry Kilpatrick MD [address] [place] [address] [id number] [place], [place] 768145 Neurology 07/19/14 Michelle Henderson RN Nurse Coordinator Neurology 07/19/14 Rio Jaquez MD [address] [place] [address] 920675 Family Practice 10/15/14 Jemima Jaramillo MD front office specialist 11/20/14 Kelley Chin, TANIA [address] 622935 Nurse Coordinator Cardiology 11/04/15 Sydnee Saleem MD [address] [place] [address] 508 [place], [place] 465935 Cardiology 11/04/15 Karlene Moya MD [address] [place] [address] Ophthalmology 06/24/17 Wilbert Quintero, OD [address] [place] [address] [id number] Optometry 06/24/17 Rod Gauthier DPM [address] [place] [address] 9[address] Supervisor [employer] Primary Podiatric Medicine 06/21/18 Nallely Hogue, RN Registered Nurse 02/20/19 11/23/22 Larisa Vargas, TANIA Specialty Finance Mgr Cardiology 04/18/19 03/06/22 Francisco Lott MD [address] [place] [address] Assigned Rheumatology Provider 05/31/20 12/13/21 Greg Ortega MD [address] [place] [address] Assigned Surgical Provider 06/23/20 12/06/21 Jan Mahmood MD [address] [place] [address]68 Gastroenterology 11/05/20 Brandt Quintana MD [address] [place] [address] Resident 11/05/20 Jan Mahmood MD [address] [place] [address] 89265 Assigned Gastroenterology Provider 12/01/20 Rio Jaquez MD [address] [place] [address] Assigned PCP 11/17/20 09/30/24 Dom Eason MD [address] [place] [address] 353 [place] [address] Internal Medicine 12/02/20 Jayla Plaza, RN Specialty Finance Mgr Hepatology 01/09/21 02/13/24 Sydnee Saleem MD 6550 [facility] [address] [place] [address] Assigned Heart and Vascular Provider 02/02/21 07/24/22 Phan Coello MD Assigned Neuroscience Provider 02/21/21 11/22/21 Cristian Barragan MD 2945 [place] [address] Assigned Infectious Disease Provider 02/21/21 03/06/22 Dom Eason MD [address] [place] [address] 353 [place] [address] Assigned Nephrology Provider 04/20/21 01/02/22 Jaimie Vernon, RN Specialty Finance Mgr Cardiology 10/28/21 Ruth Riddel, DPM, Podiatry/Foot and Ankle Surgery [address] [address] Assigned Musculoskeletal Provider 11/30/21 09/30/23 Luis Arrington MD 909 [place] [address] Assigned Neuroscience Provider 11/23/21 01/02/22 Jason Alvares MD [address] [place] [address] 295 [place] [address] Assigned Neuroscience Provider 01/03/22 05/15/22 Marquise Hanley MD [address] [place] [address] 76206 Endocrinology, Diabetes, and Metabolism 03/05/22 Vlad Ramey MD [address] [place] [address] 31504 Cardiovascular Disease 05/07/22 Joesph Crowe MD [address] [place] [address] 96[address] Surgery 05/07/22 Luis Arrington MD [address] [place] [address] 49[address] Assigned Neuroscience Provider 05/16/22 05/14/23 Michelle Padilla, TANIA Specialty Finance Mgr Cardiology 07/03/22 Vlad Ramey MD [address] [place] [address] 89482 Assigned Heart and Vascular Provider 07/25/22 05/28/23 Marquise Hanley MD [address] [place] [address] 46665 Assigned Endocrinology Provider 08/15/22 Dom Eason MD [address] [place] [address] Assigned Nephrology Provider 11/28/22 02/19/23 Wagner Oliver MD [address] [place] [address] Critical Care 12/15/22 Laura Epperson, QUALITY ASSURANCE SUPERVISOR 717 [facility] 1932 [place] [address] Assigned Nephrology Provider 02/20/23 08/30/24 Thom Taveras MD [address], [address] [place] [address] Assigned Cancer Care Provider 02/06/23 08/20/23 Joesph Crowe MD 909 [place] [address] Surgery 03/17/23 Joesph Crowe MD 909 [place] [address] Assigned Surgical Provider 04/03/23 09/30/24 Adonay Haq MD 909 [place] [address] Internal Medicine 06/14/23OctoberDenilson MD [address] [facility] [address] [place] [address] Assigned Heart and Vascular Provider 05/29/23 11/28/24 Jason Alvares MD 420 [facility] 295 [place] [address] Assigned Neuroscience Provider 05/15/23 11/28/24 Ruth Riddle DPM, Podiatry/Foot and Ankle Surgery [address] [place] [address] Assigned Musculoskeletal Provider 10/22/23 Jignesh Mathias MD [address] [place] [address] 701[address] Gastroenterology 09/25/24 Adonay Haq MD [address] [place] [address] 735185 Assigned PCP 10/01/24 12/28/24 Omar Carmona MD [address] [place] [address] 887385 Assigned PCP 12/29/24 Jason Alvares MD [address] [place] [address] 214085 Assigned Neuroscience Provider 12/29/24 Jignesh Mathias MD [address] [place] [address]997 Assigned Surgical Provider 12/29/24 Ayad Lopez, PhD LP [address] [place] [address] [phone] Assigned Behavioral Health Provider 02/28/25 Gavi Nieto PA-C [address] [place] [address] 039525 Physician Collar Stay Fuser Tender Dermatology 03/19/25 documented as of this encounter
--- OUTSIDE RECORDS SUMMARY | 2025-06-08 22:56 | XMS_ITS | Encounter Summary ---
Author Organization [facility] Address [address] [place] [address] Care Team Providers Care Safety Sealer Name Role Phone Rio Jaquez MD Primary Care Provider Barry Kilpatrick MD Unavailable Michelle Henderson RN Unavailable [phone] Rio Jaquez MD Unavailable [phone] Jemima Jaramillo MD Unavailable Unavai Kelley Bautista RN Unavailable [phone] Sydnee Saleem MD Unavailable [phone] Karlene Moya MD Unavailable [phone] Wilbert Quintero OD Unavailable [phone] Rod Gauthier DPM Unavailable [phone] Nallely Hogue RN Unavailable Unavailable Larisa Vargas RN Unavailable Unavailable Francisco Lott MD Unavailable [phone] Greg Ortega MD Unavailable [phone] Jan Mahmood MD Unavailable [phone] Brandt Quintana MD Unavailable [phone] Jan Mahmood MD Unavailable Rio Jaquez [...] MD Unavailable Joesph Crowe MD Unavailable [phone] Joesph Crowe MD Unavailable [phone] Adonay Haq MD Unavailable [phone] Denilson Srinivasan MD Unavailable [phone] Jason Alvares MD Unavailable Ruth Riddle DPM, Podiatry /Foot and Ankle Surgery Unavailable Omar Carmona MD Primary Care Provider [phone] Jignesh Mathias MD Unavailable Adonay Haq MD Unavailable [phone] Omar Carmona MD Unavailable Jason Alvares MD Unavailable Jignesh Mathias MD Unavailable Ayad Lopez PhD LP Unavailable [phone] Gavi Nieto PA-C Unavailable [phone] Encounter Details Date Type Department Care Team (Late st Contact Info) Description 09/09/2021 [facility] Medical Advice [facility] [address] [address] Rio Jaquez MD [address] [place] [address] Steatosis of liver (Primary Dx); Hyperlipidemia [...] Sex Assigned at Female 09/12/2020 12:05 PM VACUUM PLASTIC FORMING MACHINE OPERATOR Legal Sex Female 3:26 AM VACUUM PLASTIC FORMING MACHINE OPERATOR Gender Identity Female 09/12/2020 12:05 PM VACUUM PLASTIC FORMING MACHINE OPERATOR Sexual Orientation Straight 12/19/2021 10 [...] COVID-19? No / Unsure 09/09/2021 11:42 AM VACUUM PLASTIC FORMING MACHINE OPERATOR documented as of this encounter Miscellaneous Notes * Telephone Encounter - Rio Jaquez MD - 09/09/2021 1:39 PM VACUUM PLASTIC FORMING MACHINE OPERATOR Immunization History Administered Date(s) Administered ??? COVID-19,PF,Mela [...] 02/22/2020 ??? Twinrix A/B 08/27/2021 Results for CIARRA ESPOSITO ( ) as of 09/12/2021 13:30 Ref. [...] Comprehensive metabolic panel; Future Rio Jaquez MD UM PLASTIC FORMING MACHINE OPERATOR UM PLASTIC FORMING MACHINE OPERATOR documented in this encounter Plan of Treatment Upcoming Encounters Date Type Department Care Team (Late st Contact Info) Description 06/13/2025 6:00 PM VACUUM PLASTIC FORMING MACHINE OPERATOR Ancillary Procedure [facility] [address] [place] [address] Omar Carmona MD [address] [place] [address] [phone] 06/14/2025 4:00 PM VACUUM PLASTIC FORMING MACHINE OPERATOR Office Visit [facility] [address] 4th [place] [address] Omar Carmona MD [address] [place] [address] 06/15/2025 12:45 PM VACUUM PLASTIC FORMING MACHINE OPERATOR [facility] [address] [place] [phone] Jason Alvares MD [address] [place] [address] 245335 Chaya Castillo, OTR FV [address] [phone] 06/19/2025 10:30 AM VACUUM PLASTIC FORMING MACHINE OPERATOR Virtual Visit [facility] [address] [place] [address] 4th [place] [phone] Omar Carmona MD [address] [place] [address] Gerson Santos [facility] 06/26/2025 11:00 AM VACUUM PLASTIC FORMING MACHINE OPERATOR Therapy Visit [address] [phone] Jason Alvares MD [address] [place] [address] Chaya Castillo, OTR [facility] [address] [place] [address] 07/09/2025 12:45 PM VACUUM PLASTIC FORMING MACHINE OPERATOR Therapy Visit [address] [phone] Jason Alvares MD [address] [place] [address] [phone] Chaya Castillo LETA [address] [address] 07/18/2025 3:00 PM VACUUM PLASTIC FORMING MACHINE OPERATOR Office Visit [facility] Heart [address] [phone] Adonay Chapman APRN [facility] [address] [place], [place] 0297[address] 11/05/2025 12:30 PM CDT Lab [address] [place] [phone] 11/05/2025 1:45 PM CDT Office Visit [facility] Dermatology [address] [place] [phone] Gavi Nieto PA-C Dermatology [address] [place] [address] [phone] 11/20/2025 10:30 AM CDT Virtual Visit [address] [address] Marquise Hanley MD [address] [place] [address] [phone] documented as of this encounter Goals Goal Patient Goal Type Associated Problems Recent Progress Patient-Stated? Author Quit smoking / using tobacco Lifestyle Rio Will MD Note: 06/25/14 planned quit date documented as of this encounter Results * (ABNORMAL) Comprehensive metabolic panel (10/22/2021 7:53 AM CDT) [facility] Sodium 142 133 - 144 mmol/L 10/22/2021 8:23 AM CDT [facility] Potassium (POCT) 3.6 3.4 - 5.3 mmol/L 10/22/2021 8:23 AM CDT [facility] Chloride (POCT) 109 94 - 109 mmol/L 10/22/2021 8:23 AM CDT [facility] Carbon Dioxide (CO2) (POCT) 26 20 - 32 mmol/L 10/22/2021 8:23 AM CDT [facility] Anion Gap (POCT) 7 3 - 14 mmol/L 10/22/2021 8:23 AM CDT [facility] Urea Nitrogen (POCT) 12 7 - 30 mg/dL 10/22/2021 8:23 AM CDT [facility] Creatinine 1.04 0.52 - 1.04 mg/dL 10/22/2021 8:23 AM CDT [facility] Calcium 10.0 8.5 - 10.1 mg/dL 10/22/2021 8:23 AM CDT [facility] Glucose (POCT) 96 70 - 99 mg/dL 10/22/2021 8:23 AM CDT [facility] Alkaline Phosphatase 94 40 - 150 U/L 10/22/2021 8:23 AM CDT [facility] AST 72(H) 0 - 45 U/L 10/22/2021 8:23 AM CDT [facility] ALT 41 0 - 50 U/L 10/22/2021 8:23 AM CDT [facility] Protein Total 7.5 6.8 - 8.8 g/dL 10/22/2021 8:23 AM CDT [facility] Albumin (POCT) 4.2 3.4 - 5.0 g/dL 10/22/2021 8:23 AM T [facility] Bilirubin Total 4.1(H) 0.2 - 1.3 mg/dL 10/22/2021 8:23 AM CDT [facility] GFR Estimate 64 >60 mL/min/1.7 3m2 10/22/2021 8:23 AM CDT [facility] Comment:Effective July 102020 eGFRcr in adults is calculated using the 2020 CKD-EPI creatinine equation which includes age and gender (Liyah et al., NEJM, DOI: 10.1056/PZDTma5718045) Blood STRUCTURE OF LEFT UPPER LIMB / Unknown Venipuncture / Unknown 10/22/2021 7:53 AM CDT 10/22/2021 7:53 AM CDT us Rio Jaquez MD LAB - BLOOD ORDERABLES Fin al Result [facility] [address] 1st [place] [address] * (ABNORMAL) Lipid panel reflex to direct LDL Fasting (10/15/2021 7:32 AM VACUUM PLASTIC FORMING MACHINE OPERATOR) Cholesterol 408(H) <200 mg/dL 10/15/2021 2:09 PM VACUUM PLASTIC FORMING MACHINE OPERATOR [facility] Triglycerides 159(H) <150 mg/dL 10/15/2021 2:09 PM VACUUM PLASTIC FORMING MACHINE OPERATOR [facility] Direct Measure HDL 81 >=50 mg/dL 10/15/2021 2:09 PM VACUUM PLASTIC FORMING MACHINE OPERATOR [facility] LDL Cholesterol Calculated 295(H) <=100 mg/dL 10/15/2021 2:09 PM VACUUM PLASTIC FORMING MACHINE OPERATOR [facility] Non HDL Cholesterol 327(H) <130 mg/dL 10/15/2021 2:09 PM VACUUM PLASTIC FORMING MACHINE OPERATOR [facility] Blood STRUCTURE OF LEFT UPPER LIMB / Unknown Venipuncture / Unknown 10/15/2021 7:32 AM VACUUM PLASTIC FORMING MACHINE OPERATOR 10/15/2021 7:32 AM VACUUM PLASTIC FORMING MACHINE OPERATOR Narrative [facility] - 10/15/2021 2:09 PM VACUUM PLASTIC FORMING MACHINE OPERATOR Cholesterol Desirable: <200 mg/dL Triglycerides Normal: Less [...] ORDERABLES Fin al Result Performing Organization Address [facility] Co de Phone Number [facility] [address] 1st [place] [address] * (ABNORMAL) TSH with free T4 reflex (10/15/2021 7:32 AM VACUUM PLASTIC FORMING MACHINE OPERATOR) TSH 0.19(L) 0.40 - 4.00 mU/L 10/15/2021 2:16 PM VACUUM PLASTIC FORMING MACHINE OPERATOR [facility] Blood STRUCTURE OF LEFT UPPER LIMB / Unknown Venipuncture / Unknown 10/15/2021 7:32 AM VACUUM PLASTIC FORMING MACHINE OPERATOR 10/15/2021 7:32 AM VACUUM PLASTIC FORMING MACHINE OPERATOR Rio Jaquez MD LAB - BLOOD ORDERABLES Fin galileo Result Performing Organization Address [facility] de Phone Number [facility] - [address] [place] [address] documented in this encounter Visit Diagnoses Diagnosis [...] Total Score: 5 08/27/19 22 9:25 AM VACUUM PLASTIC FORMING MACHINE OPERATOR documented as of this encounter Care Teams Safety Sealer Relationship Specialty Start Date End Date Rio Jaquez MD [address] [place] [address] PCP - General Family Practice 12/02/10 07/13/24 Omar Carmona MD [address] [place] [address] [phone] PCP - General Family Medicine 07/14/24 Barry Kilpatrick MD [address] [place] [address] [id number] [place], [place] [phone] Neurology 07/19/14 Michelle Henderson I, RN Nurse Coordinator Neurology 07/19/14 Rio Jaquez MD [address] [place] [address] [address] [place], [place] 530285 Family Practice 10/15/14 Jemima Jaramillo MD pathological technician 11/20/14 Kelley Chin, TANIA [address] [phone] Nurse Coordinator Cardiology 11/04/15 Sydnee Saleem MD [address] [place] [address] [address] [place], [place] 667135 Cardiology 11/04/15 Karlene Moya MD [address] [place] [address] Ophthalmology 06/24/17 Wilbert Quintero, OD [address] [place] [address] Optometry 06/24/17 Rod Gauthier DPM [address] [place] [address] Asbestos Abatement Technician Primary Podiatric Medicine 06/21/18 Nallely Hogue, RN Registered Nurse 02/20/19 11/23/22 Larisa Vargas, TANIA Specialty International Account Manager Cardiology 04/18/19 03/06/22 Francisco Lott MD [address] [facility] [address] [place] [address] Assigned Rheumatology Provider 05/31/20 12/13/21 Greg Ortega MD [address] [place], [place] [phone] Assigned Surgical Provider 06/23/20 12/06/21 Jan Mahmood MD [address] [facility] [address] [place] [address] Gastroenterology 11/05/20 Brandt Quintana MD [facility] [place] [address] Resident 11/05/20 Jan Mahmood MD [address] [facility] [address] [place] [address] Assigned Gastroenterology Provider 12/01/20 Rio Jaquez MD 909 [facility] 4 [place] [address] Assigned PCP 11/17/20 09/30/24 Dom Eason MD 717 [facility] 353 [place] [address] Internal Medicine 12/02/20 Jayla Plaza, RN Specialty International Account Manager Hepatology 01/09/21 02/13/24 Sydnee Saleem MD [address] [address] Assigned Heart and Vascular Provider 02/02/21 07/24/22 Phan Coello MD Assigned Neuroscience Provider 02/21/21 11/22/21 Cristian Barragan MD [address] [place], [place] [phone] Assigned Infectious Disease Provider 02/21/21 03/06/22 Dom Eason MD [address] [place] [address] 353 [place], [place] [phone] Assigned Nephrology Provider 04/20/21 01/02/22 Jaimie Vernon, TANIA Specialty International Account Manager Cardiology 10/28/21 Ruth Riddle, DPM, Podiatry/Foot and Ankle Surgery [address] [facility] [address] [place], [place] 137017 Assigned Musculoskeletal Provider 11/30/21 09/30/23 Luis Arrington MD [address] [place] [address] 139335 Assigned Neuroscience Provider 11/23/21 01/02/22 Jason Alvares MD [address] [place] [address] [address] [place], [place] [phone] Assigned Neuroscience Provider 01/03/22 05/15/22 Marquise Hanley MD [address] [place] [address] Endocrinology, Diabetes, and Metabolism 03/05/22 Vlad Ramey MD [address] [place] [address] Cardiovascular Disease 05/07/22 Joesph Crowe MD [address] [place] [address] Surgery 05/07/22 Luis Arrington MD [address] [place] [address] Assigned Neuroscience Provider 05/16/22 05/14/23 Michelle Padilla RN Specialty International Account Manager Cardiology 07/03/22 Vlad Ramey MD [address] [place] [address] Assigned Heart and Vascular Provider 07/25/22 05/28/23 Marquise Hanley MD [address] [place] [address] Assigned Endocrinology Provider 08/15/22 Dom Eason MD [address] [place] [address] Assigned Nephrology Provider 11/28/22 02/19/23 Wagner Oliver MD [address] [place] [address] Critical Care 12/15/22 Laura Epperson, COURTROOM DEPUTY OR CALENDAR CLERK [address] [facility] [address] [place] [address] Assigned Nephrology Provider 02/20/23 08/30/24 Thom Taveras MD [address] [place] [address] Assigned Cancer Care Provider 02/06/23 08/20/23 Joesph Crowe MD 909 [place] [address] MD Surgery 03/17/23 Joesph Crowe MD [address] [place], [place] 707105 Assigned Surgical Provider 04/03/23 09/30/24 Adonay Haq MD [address] [place], [place] [phone] Internal Medicine 06/14/23OctoberDenilson MD [address] [facility] [address] [place], [place] 587035 Assigned Heart and Vascular Provider 05/29/23 11/28/24 Jason Alvares MD [address] [facility] [address] [place] [address] Assigned Neuroscience Provider 05/15/23 11/28/24 Ruth Riddle DPM, Podiatry/Foot and Ankle Surgery [address] [place], [place] 859397 Assigned Musculoskeletal Provider 10/22/23 Jignesh Mathias MD [address] [place] [address] [phone] Gastroenterology 09/25/24 Adonay Haq MD [address] [place] [address] [phone] Assigned PCP 10/01/24 12/28/24 Omar Carmona MD [address] [place] [address] 949365 Assigned PCP 12/29/24 Jason Alvares MD [address] [place] [address] 518235 Assigned Neuroscience Provider 12/29/24 Jignesh Mathias MD [address] [place] [address] [phone] Assigned Surgical Provider 12/29/24 Ayad Lopez, PhD LP [address] [place] [address] [phone] Assigned Behavioral Health Provider 02/28/25 Gavi Nieto PA-C [address] [place] [address] [phone] Physician Rivet Flunky Dermatology 03/19/25 documented as of this encounter
--- OUTSIDE RECORDS SUMMARY | 2025-06-08 22:56 | XMS_ITS | Encounter Summary ---
Author Organization [facility] Address [address] [place] [address] 20169 Care Team Providers Care Interactive Media Marketing Director Name Role Phone Rio Jaquez MD Primary Care Provider Barry Kilpatrick MD Unavailable Michelle Henderson RN Unavailable [phone] Rio Jaquez MD Unavailable [phone] Jemima Jaramillo MD Unavailable Unavai Kelley Bautista RN Unavailable [phone] Sydnee Saleem MD Unavailable [phone] Karlene Moya MD Unavailable [phone] Wilbert Quintero OD Unavailable [phone] Rod Gauthier DPM Unavailable +[phone] Nallely Hogue RN Unavailable Unavailable Larisa Vargas RN Unavailable Unavailable Francisco Lott MD Unavailable [phone] Greg Ortega MD Unavailable [phone] Jan Mahmood MD Unavailable [phone] Brandt Quintana MD Unavailable [phone] Jan Mahmood MD Unavailable Rio Jaquez [...] MD Unavailable Joesph Crowe MD Unavailable [phone] Luis Arrington MD Unavailable Michelle Padilla RN Unavailable Unavaila ble Vlad Ramey MD Unavailable Marquise Hanley MD Unavailable [phone] Dom Eason MD Unavailable Wagner Oliver MD Unavailable Laura Epperson NP Unavailable [phone] Thom Taveras MD Unavailable +[phone] Joesph Crowe MD Unavailable +[phone] Joesph Crowe MD Unavailable +[phone] Adonay Haq MD Unavailable [phone] Denilson Srinivasan MD Unavailable +[phone] Jason Alvares MD Unavailable Ruth RiddleM, Podiatry /Foot and Ankle Surgery Unavailable Omar Carmona MD Primary Care Provider [phone] Jignesh Mathias MD Unavailable Adonay Haq MD Unavailable [phone] Omar Carmona MD Unavailable [phone] Jason Alvares MD Unavailable Jignesh Mathias MD Unavailable Ayad Lopez PhD LP Unavailable [phone] Gavi Nieto-C Unavailable +[phone] Encounter Details Date Type Department Care Team (Late st Contact Info) Description 11/14/2021 [facility] [address] [address] [facility] Social History Tobacco Use [...] any clubs o r organizations such as methodist groups, unions, fraternal or athletic groups, or [...] 08/27/2021 [facility] - Occupational [...] Sex Assigned at Female 09/12/2020 12:05 PM PET CARE WORKER Legal Sex Female 3:26 AM PET CARE WORKER Gender Identity Female 09/12/2020 12:05 PM PET CARE WORKER Sexual Orientation Straight 12/19/2021 10 :44 [...] st Contact Info) Description 06/13/2025 6:00 PM PET CARE WORKER Ancillary Procedure [facility] CT Clinic [address] [place] [address] Omar Carmona MD [address] [place] [address] [phone] 06/14/2025 4:00 PM PET CARE WORKER Office Visit [facility] Primary [facility] [address] [place] [address] Omar Carmona MD [address] [place] [address] 06/15/2025 12:45 PM PET CARE WORKER Therapy [facility] [place] [phone] Jason Alvares MD [address] [place] [address] Chaya Castillo OTR [facility] 150 [place] [address] 06/19/2025 10:30 AM PET CARE WORKER Virtual Visit [facility] [address] [place] [address] 4th [place] [phone] Omar Carmona MD [address] [place] [address] [phone] Gerson Santos [facility] 06/26/2025 11:00 AM PET CARE WORKER Therapy Visit [facility] 150 [place] [phone] Jason Alvares MD [address] [place] [address] Chaya Castillo OTR [facility] 150 [place] [address] 07/09/2025 12:45 PM PET CARE WORKER [facility] [address] [place] [phone] Jason Alvares MD [address] [place] [address] 139[address] Chaya Castillo OTR [facility] 150 [place] [address] 07/18/2025 3:00 PM PET CARE WORKER Office Visit [facility] Heart [address] [phone] Adonay Chapman APRN [facility] 500 [place] [address] 11/05/2025 12:30 PM CDT Lab [facility] Lab [address] [place] [phone] 11/05/2025 1:45 PM CDT Office Visit [facility] Dermatology [address] [place] [phone] Gavi Nieto PA-C Dermatology [address] [place] [address] 11/20/2025 10:30 AM CDT Virtual Visit [address] [phone] Marquise Hanley MD [address] [place] [address] [phone] documented as of this encounter Goals Goal Patient Goal Type Associated Problems Recent Progress Patient-Stated? Author Quit smoking / using tobacco Lifestyle No Roi Jaquez MD Note: 06/25/14 planned quit date documented as of this encounter Visit Diagnoses Not on filedocumented in this encounter Additional Health Concerns Infection Onset Date Last Indicated Resolved Time MRSA Comment:Added from external infection. 10/23/2020 10/21/2020 Rule Out COVID-19 02/09/2024 02/09/2024 02/09/2024 1:52 AM CDT Assessment Noted Time PHQ-9 Depression Total Score: 5 08/27/19 22 9:25 AM PET CARE WORKER documented as of this encounter Care Teams Interactive Media Marketing Director Relationship Specialty Start Date End Date Rio Jaquez MD [address] [place] [address] 19773 PCP - General Family Practice 12/02/10 07/13/24 Omar Carmona MD [address] [place] [address] 20308 PCP - General Family Medicine 07/14/24 Barry Kilpatrick MD [address] [place] [address] [id number] [place], [place] 076505 Neurology 07/19/14 Michelle Henderson RN Nurse Coordinator Neurology 07/19/14 Rio Jaquez MD [address] [place] [address] 767465 Family Practice 10/15/14 Jemima Jaramillo MD slubber tender 11/20/14 Kelley Chin, TANIA [address] [phone] Nurse Coordinator Cardiology 11/04/15 Sydnee Saleem MD [address] [place] [address] 508 [place], [place] 412645 Cardiology 11/04/15 Karlene Moya MD [address] [place] [address] Ophthalmology 06/24/17 Wilbert Quintero, OD [address] [place] [address] [phone] Optometry 06/24/17 Rod Gauthier DPM [address] [place] [address] 30168 Technical Marketing Engineer Primary Podiatric Medicine 06/21/18 Nallely Hogue, RN Registered Nurse 02/20/19 11/23/22 Larisa Vargas, TANIA Specialty Laser Machine Operator Cardiology 04/18/19 03/06/22 Francisco Lott MD [address] [place] [address] 6[address]80 Assigned Rheumatology Provider 05/31/20 12/13/21 Greg Ortega MD [address] [place] [address] Assigned Surgical Provider 06/23/20 12/06/21 Jan Mahmood MD [address] [place] [address] 45[address] Gastroenterology 11/05/20 Brandt Quintana MD [address] [place] [address] Resident 11/05/20 Jan Mahmood MD [address] [place] [address] 45658 Assigned Gastroenterology Provider 12/01/20 Rio Jaquez MD [address] [place] [address] 37093 Assigned PCP 11/17/20 09/30/24 Dom Eason MD [address] [place] [address] 353 [place] [address] Internal Medicine 12/02/20 Jayla Plaza, RN Specialty Laser Machine Operator Hepatology 01/09/21 02/13/24 Sydnee Saleem MD 65[address] [facility] [address] [place] [address] Assigned Heart and Vascular Provider 02/02/21 07/24/22 Phan Coello MD Assigned Neuroscience Provider 02/21/21 11/22/21 Cristian Barragan MD [address]45 [place] [address] Assigned Infectious Disease Provider 02/21/21 03/06/22 Dom Eason MD [address] [place] [address] 353 [place] [address] Assigned Nephrology Provider 04/20/21 01/02/22 Jaimie Vernon, RN Specialty Laser Machine Operator Cardiology 10/28/21 Ruth Riddle, DPM, Podiatry/Foot and Ankle Surgery [address] [place] [address] [address] Assigned Musculoskeletal Provider 11/30/21 09/30/23 Luis Arrington MD 909 [place] [address] Assigned Neuroscience Provider 11/23/21 01/02/22 Jason Alvares MD [address] [place] [address] 295 [place] [address] Assigned Neuroscience Provider 01/03/22 05/15/22 Marquise Hanley MD [address] [place] [address] 60151 Endocrinology, Diabetes, and Metabolism 03/05/22 Vlad Ramey MD [address] [place] [address] 49529 Cardiovascular Disease 05/07/22 Joesph Crowe MD [address] [place] [address] 78793 Surgery 05/07/22 Luis Arrington MD [address] [place] [address] 43622 Assigned Neuroscience Provider 05/16/22 05/14/23 Michelle Padilla, TANIA Specialty Laser Machine Operator Cardiology 07/03/22 Vlad Ramey MD [address] [place] [address] 75[address] Assigned Heart and Vascular Provider 07/25/22 05/28/23 Marquise Hanley MD [address] [place] [address] 83257 Assigned Endocrinology Provider 08/15/22 Dom Eason MD [address] [place] [address] 11806 Assigned Nephrology Provider 11/28/22 02/19/23 Wagner Oliver MD [address] [place] [address] Critical Care 12/15/22 Laura Epperson, CIRCULATION WORKER 7[address] [facility] [address] [place] [address] Assigned Nephrology Provider 02/20/23 08/30/24 Thom Taveras MD [address], [address] [place] [address] Assigned Cancer Care Provider 02/06/23 08/20/23 Joesph Crowe MD 9[address] [place] [address] Surgery 03/17/23 Joesph Crowe MD [address] [place] [address] Assigned Surgical Provider 04/03/23 09/30/24 Adonay Haq MD 909 [place] [address] Internal Medicine 06/14/23OctoberDenilson MD [address] [facility] [address] [place] [address] Assigned Heart and Vascular Provider 05/29/23 11/28/24 Jason Alvares MD 420 [facility] 295 [place] [address] Assigned Neuroscience Provider 05/15/23 11/28/24 Ruth Rdidle DPM, Podiatry/Foot and Ankle Surgery [address] [place] [address] RODRIGUEZ [address] [place] [address] Assigned Musculoskeletal Provider 10/22/23 Jignesh Mathias MD [address] [place] [address] 91419 Gastroenterology 09/25/24 Adonay Haq MD [address] [place] [address] [phone] Assigned PCP 10/01/24 12/28/24 Omar Carmona MD [address] [place] [address] 347575 Assigned PCP 12/29/24 Jason Alvares MD [address] [place] [address] 442385 Assigned Neuroscience Provider 12/29/24 Jignesh Mathias MD [address] [place] [address] 42696 Assigned Surgical Provider 12/29/24 Ayad Lopez, PhD LP [address] [place] [address] 523845 Assigned Behavioral Health Provider 02/28/25 Gavi Nieto PA-C [address] [place] [address] 827945 Physician Electrical Sign Wirer Helper Dermatology 03/19/25 documented as of this encounter
--- OUTSIDE RECORDS SUMMARY | 2025-06-08 22:56 | XMS_ITS | Encounter Summary ---
Author Organization [facility] Address [address] [place] [address] Care Team Providers Care Lift Slab Operator Name Role Phone Rio Jaquez MD Primary Care Provider Barry Kilpatrick MD Unavailable Michelle Henderson RN Unavailable [phone] Rio Jaquez MD Unavailable [phone] Jemima Jaramillo MD Unavailable Unavai Kelley Bautista RN Unavailable [phone] Sydnee Saleem MD Unavailable [phone] Karlene Moya MD Unavailable [phone] Wilbert Quintero OD Unavailable [phone] Rod Gauthier DPM Unavailable [phone] Nallely Hogue RN Unavailable Unavailable Larisa Vargas RN Unavailable Unavailable Francisco Lott MD Unavailable [phone] Greg Ortega MD Unavailable [phone] Jan Mahmood MD Unavailable [phone] Brandt Quintana MD Unavailable [phone] Jan Mahmood MD Unavailable Rio Jaquez [...] Ramey MD Unavailable Joesph Crowe MD Unavailable uLis Arrington MD Unavailable Michelle Padilla RN Unavailable Unavaila ble Vlad Ramey MD Unavailable Marquise Hanley MD Unavailable [phone] Dom Eason MD Unavailable Wagner Oliver MD Unavailable Laura Epperson NP Unavailable [phone] Thom Taveras MD Unavailable [phone] Joesph Crowe MD Unavailable [phone] Joesph Crowe MD Unavailable [phone] Adonay Haq MD Unavailable [phone] Denilson Srinivasan MD Unavailable [phone] Jason Alvares MD Unavailable Ruth Riddle DPM, Podiatry /Foot and Ankle Surgery Unavailable Omar Carmona MD Primary Care Provider [phone] Jignesh Mathias MD Unavailable Adonay Haq MD Unavailable [phone] Omar Carmona MD Unavailable Jason Alvares MD Unavailable Jignesh Mathias MD Unavailable Ayad Lopez PhD LP Unavailable [phone] Gavi Nieto-C Unavailable [phone] Encounter Details Date Type Department Care Team (Late st Contact Info) Description 09/17/2021 [facility] Hepatology Clinic [address] [address] Jan Mahmood MD [address] [place] [address] Social History Tobacco Use Types Packs/Day Years [...] any clubs o r organizations such as caodaism groups, unions, fraternal or athletic groups, or [...] Answer Date Recorded PHQ-2 Score 2 08/27/2021 [facility] Questionnaire Answer Date [...] Assigned at Female 09/12/2020 12:05 PM VACUUM FORM OPERATOR Legal Sex Female 3:26 AM VACUUM FORM OPERATOR Gender Identity Female 09/12/2020 12:05 PM VACUUM FORM OPERATOR Sexual Orientation Straight 12/19/2021 10 :44 [...] No / Unsure 09/09/2021 11:42 AM VACUUM FORM OPERATOR documented as of this encounter Plan of Treatment Upcoming Encounters Date Type Department Care Team (Late st Contact Info) Description 06/13/2025 6:00 PM VACUUM FORM OPERATOR Ancillary Procedure [facility] Imaging Center CT Clinic [address] [place] [address] Omar Cramona MD [address] [place] [address] [phone] 06/14/2025 4:00 PM VACUUM FORM OPERATOR Office Visit [facility] Primary Care Clinic [address] [place] [address] Omar Carmona MD [address] [place] [address] 06/15/2025 12:45 PM VACUUM FORM OPERATOR Therapy Visit [facility] 150 [place] [phone] Jason Alvares MD [address] [place] [address] Chaya Castillo, OTR FV [address] 626647 06/19/2025 10:30 AM VACUUM FORM OPERATOR Virtual Visit [facility] Primary Care Clinic [address] [place] [address] 4th [place] [phone] Omar Carmona MD [address] [place] [address] Gerson Santos [facility] 06/26/2025 11:00 AM VACUUM FORM OPERATOR Therapy Visit [address] [phone] Jason Alvares MD [address] [place] [address] Chaya Castillo, OTR [facility] 150 [place] [address] 07/09/2025 12:45 PM VACUUM FORM OPERATOR Therapy Visit [address] [phone] Jason Alvares MD [address] [place] [address] 553375 Chaya Castillo, OTR [address] [address] 07/18/2025 3:00 PM VACUUM FORM OPERATOR Office Visit [facility] Heart [address] [phone] Adonay Chapman APRN [employer] 500 [place], [place] 518325 11/05/2025 12:30 PM CDT Lab [facility] Lab [address] [place] [phone] 11/05/2025 1:45 PM CDT Office Visit [facility] Dermatology [address] [place] [phone] Gavi Nieto, PANavinC Dermatology [address] [place] [address] [phone] 11/20/2025 10:30 AM CDT Virtual Visit [address] [address] Marquise Hanley MD [address] [place] [address] 883355 documented as of this encounter Goals Goal [...] Score: 5 08/27/19 22 9:25 AM VACUUM FORM OPERATOR documented as of this encounter Care Teams Lift Slab Operator Relationship Specialty Start Date End Date Rio Jaquez MD [address] [place] [address] 28563 PCP - General Family Practice 12/02/10 07/13/24 Omar Carmona MD [address] [place] [address] 42796 PCP - General Family Medicine 07/14/24 Barry Kilpatrick MD [address] [place] [address] [id number] [place], [place] [phone] Neurology 07/19/14 Michelle Henderson RN Nurse Coordinator Neurology 07/19/14 Rio Jaquez MD [address] [place] [address] 200235 Family Practice 10/15/14 Jemima Jaramillo MD agile qa tester 11/20/14 Kelley Chin, TANIA [address] 223245 Nurse Coordinator Cardiology 11/04/15 Sydnee Saleem MD 420 [facility] 508 [place], [place] 569595 Cardiology 11/04/15 Karlene Moya MD [address] [place] [address] 749465 Ophthalmology 06/24/17 Wilbert Quintero, OD [address] [place] [address]87 Optometry 06/24/17 Rod Gauthier DPM [address] [place] [address] 7[address]30 Blade Balancer Primary Podiatric Medicine 06/21/18 Nallely Hogue, RN Registered Nurse 02/20/19 11/23/22 Larisa Vargas, TANIA Specialty Manufacturing Chief Engineer Cardiology 04/18/19 03/06/22 Francisco Lott MD [address] [place] [address] 99002 Assigned Rheumatology Provider 05/31/20 12/13/21 Greg Ortega MD [address] [place] [address] 25625 Assigned Surgical Provider 06/23/20 12/06/21 Jan Mahmood MD [address] [place] [address] 82038 Gastroenterology 11/05/20 Brandt Quintana MD [address] [place] [address] 45098 Resident 11/05/20 Jan Mahmood MD [address] [place] [address] 74298 Assigned Gastroenterology Provider 12/01/20 Rio Jaquez MD [address] [place] [address] 53777 Assigned PCP 11/17/20 09/30/24 Dom Eason MD [address] [place] [address] Internal Medicine 12/02/20 Jayla Plaza, RN Specialty Manufacturing Chief Engineer Hepatology 01/09/21 02/13/24 Sydnee Saleem MD [address] [facility] [address] [place] [address] Assigned Heart and Vascular Provider 02/02/21 07/24/22 Phan Coello MD Assigned Neuroscience Provider 02/21/21 11/22/21 [place] [address] [place] [address] 37629 Assigned Infectious Disease Provider 02/21/21 03/06/22 Dom Eason MD [address] [place] [address] 45207 Assigned Nephrology Provider 04/20/21 01/02/22 Jaimie Vernon, TANIA Specialty Manufacturing Chief Engineer Cardiology 10/28/21 Ruth Riddle DPM, Podiatry/Foot and Ankle Surgery [address] [place] [address] [address] Assigned Musculoskeletal Provider 11/30/21 09/30/23 Luis Arrington MD [address] [place] [address] 87683 Assigned Neuroscience Provider 11/23/21 01/02/22 Jason Alvares MD [address] [place] [address] 37026 Assigned Neuroscience Provider 01/03/22 05/15/22 Marquise Hanley MD [address] [place] [address] 31030 Endocrinology, Diabetes, and Metabolism 03/05/22 Vlad Ramey MD [address] [place] [address] 810585 Cardiovascular Disease 05/07/22 Joesph Crowe MD [address] [place] [address] 19130 Surgery 05/07/22 Luis Arrington MD [address] [place] [address] 93776 Assigned Neuroscience Provider 05/16/22 05/14/23 Michelle Padilla RN Specialty Manufacturing Chief Engineer Cardiology 07/03/22 Vlad Ramey MD [address] [place] [address] [phone] Assigned Heart and Vascular Provider 07/25/22 05/28/23 Marquise Hanley MD [address] [place] [address] 65779 Assigned Endocrinology Provider 08/15/22 Dom Eason MD [address] [place] [address] 89289 Assigned Nephrology Provider 11/28/22 02/19/23 Wagner Oliver MD [address] [place] [address] Critical Care 12/15/22 Laura Epperson NP 717 [facility] 1932 [place] [address] Assigned Nephrology Provider 02/20/23 08/30/24 Thom Taveras MD [address] [place], [place] 4930205 [place] [address] Assigned Cancer Care Provider 02/06/23 08/20/23 Joesph Crowe MD [address] [place] [address] 52146 Surgery 03/17/23 Joesph Crowe MD [address] [place] [address] 30467 Assigned Surgical Provider 04/03/23 09/30/24 Adonay Haq MD [address] [place] [address] 00247 Internal Medicine 06/14/23OctoberDenilson MD [address] [facility] [address] [place] [address] Assigned Heart and Vascular Provider 05/29/23 11/28/24 Jason Alvares MD 420 [facility] 295 [place] [address] Assigned Neuroscience Provider 05/15/23 11/28/24 Ruth Riddle DPM, Podiatry/Foot and Ankle Surgery [address] RODRIGUEZ [address] [place] [address] 35890 Assigned Musculoskeletal Provider 10/22/23 Jignesh Mathias MD [address] [place] [address] 09336 Gastroenterology 09/25/24 Adonay Haq MD [address] [place] [address] 535535 Assigned PCP 10/01/24 12/28/24 Omar Carmona MD [address] [place] [address] 352145 Assigned PCP 12/29/24 Jason Alvares MD [address] [place] [address] 736595 Assigned Neuroscience Provider 12/29/24 Jignesh Mathias MD [address] [place] [address] 743115 Assigned Surgical Provider 12/29/24 Ayad Lopez, PhD LP [address] [place] [address] 106345 Assigned Behavioral Health Provider 02/28/25 Gavi Nieto PANavinC [address] [place] [address] 998255 Physician High School Mathematics Teacher Dermatology 03/19/25 documented as of this encounter
--- OUTSIDE RECORDS SUMMARY | 2025-06-08 22:56 | XMS_ITS | Encounter Summary ---
Author Organization [facility] Address [address] [place] [address] Care Team Providers Care Switchboard Inspector Name Role Phone Rio Jaquez MD Primary Care Provider Barry Kilpatrick MD Unavailable Michelle Henderson RN Unavailable [phone] Rio Jaquez MD Unavailable [phone] Jemima Jaramillo MD Unavailable Unavai Kelley Bautista RN Unavailable [phone] Sydnee Saleem MD Unavailable +[phone] Karlene Moya MD Unavailable [phone] Wilbert Quintero OD Unavailable +[phone] Rod Gauthier DPM Unavailable +[phone] Nallely Hogue RN Unavailable Unavailable Larisa Vargas RN Unavailable Unavailable Francisco Lott MD Unavailable +[phone] Greg Ortega MD Unavailable [phone] Jan Mahmood MD Unavailable [phone] Brandt Quintana MD Unavailable +[phone] Jan Mahmood MD Unavailable Rio Jaquez MD Unavailable [phone] Dom Esaon MD Unavailable Jayla Plaza RN Unavailable Sydnee [...] MD Unavailable Joesph Crowe MD Unavailable +[phone] Joesph Crowe MD Unavailable +[phone] Adonay Haq MD Unavailable [phone] Denilson Srinivasan MD Unavailable +[phone] Jason Alvares MD Unavailable Ruth RiddleM, Podiatry /Foot and Ankle Surgery Unavailable Omar Carmona MD Primary Care Provider [phone] Jignesh Mathias MD Unavailable Adonay Haq MD Unavailable [phone] Omar Carmona MD Unavailable [phone] Jason Avlares MD Unavailable Jignesh Mathias MD Unavailable Ayad Lopez PhD LP Unavailable +[phone] Gavi Nieto-C Unavailable +[phone] Encounter Details Date Type Department Care Team (Late st Contact Info) Description 09/05/2021 [facility] Hepatology Clinic [address] [address] Darion Lopes[place] Social History Tobacco Use Types Packs/Day Years [...] than three times a week 08/27/2021 [facility]ends [facility] Not on file 08/27 Do you [...] Answer Date Recorded PHQ-2 Score 2 08/27/2021 [facility] - [...] Sex Assigned at Female 09/12/2020 12:05 PM FORESTRY CREW CHIEF Legal Sex Female 3:26 AM FORESTRY CREW CHIEF Gender Identity Female 09/12/2020 12:05 PM FORESTRY CREW CHIEF Sexual Orientation Straight 12/19/2021 10 :44 AM [...] COVID-19? No / Unsure 08/27/2021 7:34 AM FORESTRY CREW CHIEF documented as of this encounter Plan of Treatment Upcoming Encounters Date Type Department Care Team (Late st Contact Info) Description 06/13/2025 6:00 PM FORESTRY CREW CHIEF Ancillary Procedure [facility] Imaging [facility] CT Clinic [address] [address] Omar Carmona MD [address] [place] [address] 768395 06/14/2025 4:00 PM FORESTRY CREW CHIEF Office Visit [facility] Primary Care Clinic [address] [place] [address] Omar Carmona MD [address] [place] [address] 06/15/2025 12:45 PM FORESTRY CREW CHIEF Therapy Visit [facility] [address] [place] [phone] Jason Alvares MD [address] [place] [address] Chaya Castillo OTR [facility] [address] [place] [address] 06/19/2025 10:30 AM FORESTRY CREW CHIEF Virtual Visit [facility] [address] [place] [address] 4th [place] [phone] Omar Carmona MD [address] [place] [address] [phone] Gerson Santos [facility] 06/26/2025 11:00 AM FORESTRY CREW CHIEF Therapy Visit [facility] 150 [place] [phone] Jason Alvares MD [address] [place] [address] Chaya Castillo OTR [facility] [address] [place] [address] 07/09/2025 12:45 PM FORESTRY CREW CHIEF [facility] 150 [place] [phone] Jason Alvares MD [address] [place] [address] Chaya Castillo OTR [facility] 150 [place] [address] 07/18/2025 3:00 PM FORESTRY CREW CHIEF Office Visit [facility] Heart [address] [phone] Adonay Chapman APRN [facility] 500 [place] [address] 11/05/2025 12:30 PM CDT Lab [facility] Lab [address] [place] [phone] 11/05/2025 1:45 PM CDT Office Visit [facility] Dermatology [address] [place] [phone] Gavi Nieto PA-C Dermatology [address] [place] [address] 11/20/2025 10:30 AM CDT Virtual Visit [address] [phone] Marquise Hanley MD [address] [place] [address] 522855 documented as of this encounter Goals Goal [...] Total Score: 5 08/27/19 22 9:25 AM FORESTRY CREW CHIEF documented as of this encounter Care Teams Switchboard Inspector Relationship Specialty Start Date End Date Rio Jaquez MD [address] [place] [address] 27703 PCP - General Family Practice 12/02/10 07/13/24 Omar Carmona MD [address] [place] [address] 47048 PCP - General Family Medicine 07/14/24 Barry Kilpatrick MD [address] [place] [address] [id number] [place], [place] 738885 Neurology 07/19/14 Michelle Henderson I, TANIA Nurse Coordinator Neurology 07/19/14 Rio Jaquez MD [address] [place] [address] 015205 Family Practice 10/15/14 Jemima Jaramillo MD tissue packer 11/20/14 Kelley Chin, TANIA [address] [phone] Nurse Coordinator Cardiology 11/04/15 Sydnee Saleem MD [address] [place] [address] 508 [place], [place] [phone] Cardiology 11/04/15 Karlene Moya MD [address] [place] [address] Ophthalmology 06/24/17 Wilbert Quintero, OD [address] [place] [address] [phone] Optometry 06/24/17 Rod Gauthier DPM [address] [place] [address] [employer] Primary Podiatric Medicine 06/21/18 Nallely Hogue, RN Registered Nurse 02/20/19 11/23/22 Larisa Vargas, TANIA Specialty Supervisor Heat Treating Cardiology 04/18/19 03/06/22 Francisco Lott MD [address] [place] [address] 70482 Assigned Rheumatology Provider 05/31/20 12/13/21 Greg Ortega MD [address] [place] [address] Assigned Surgical Provider 06/23/20 12/06/21 Jan Mahmood MD [address] [place] [address] 327[address] Gastroenterology 11/05/20 Brandt Quintana MD [address] [place] [address] Resident 11/05/20 Jan Mahmood MD [address] [place] [address] 244[address] Assigned Gastroenterology Provider 12/01/20 Rio Jaquez MD [address] [place] [address] Assigned PCP 11/17/20 09/30/24 Dom Eason MD [address] [place] [address] 353 [place] [address] Internal Medicine 12/02/20 Jayla Plaza, RN Specialty Supervisor Heat Treating Hepatology 01/09/21 02/13/24 Sydnee Saleem MD 6550 [facility] [address] [place] [address] Assigned Heart and Vascular Provider 02/02/21 07/24/22 Phan Coello MD Assigned Neuroscience Provider 02/21/21 11/22/21 Cristian Barragan MD [address] [place] [address] Assigned Infectious Disease Provider 02/21/21 03/06/22 Dom Eason MD [address] [place] [address] 353 [place] [address] Assigned Nephrology Provider 04/20/21 01/02/22 Jaimie Vernon, RN Specialty Supervisor Heat Treating Cardiology 10/28/21 Ruth Riddle DPM, Podiatry/Foot and Ankle Surgery [address] [address] Assigned Musculoskeletal Provider 11/30/21 09/30/23 Luis Arrington MD [address] [place] [address] Assigned Neuroscience Provider 11/23/21 01/02/22 Jason Alvares MD [address] [place] [address] 295 [place] [address] Assigned Neuroscience Provider 01/03/22 05/15/22 Marquise Hanley MD [address] [place] [address] Endocrinology, Diabetes, and Metabolism 03/05/22 Vlad Ramey MD [address] [place] [address] 11881 Cardiovascular Disease 05/07/22 Joesph Crowe MD [address] [place] [address] 05604 Surgery 05/07/22 Luis Arrington MD [address] [place] [address] Assigned Neuroscience Provider 05/16/22 05/14/23 Michelle Padilla, TANIA Specialty Supervisor Heat Treating Cardiology 07/03/22 Vlad Ramey MD [address] [place] [address] 34820 Assigned Heart and Vascular Provider 07/25/22 05/28/23 Marquise Hanley MD [address] [place] [address]42[address] Assigned Endocrinology Provider 08/15/22 Dom Eason MD [address] [place] [address] Assigned Nephrology Provider 11/28/22 02/19/23 Wagner Oliver MD [address] [place] [address] Critical Care 12/15/22 Laura Epperson, MONOGRAM MAKER 717 [facility] [address] [place] [address] Assigned Nephrology Provider 02/20/23 08/30/24 Thom Taveras MD [address], [address] [place] [address] Assigned Cancer Care Provider 02/06/23 08/20/23 Joesph Crowe MD [address] [place] [address] 19460 Surgery 03/17/23 Joesph Crowe MD [address] [place] [address] Assigned Surgical Provider 04/03/23 09/30/24 Adonay Haq MD [address] [place] [address] Internal Medicine 06/14/23OctoberDenilson MD [address] [facility] [address] [place] [address] Assigned Heart and Vascular Provider 05/29/23 11/28/24 Jason Alvares MD 420 [facility] 295 [place] [address] Assigned Neuroscience Provider 05/15/23 11/28/24 Ruth Riddle DPM, Podiatry/Foot and Ankle Surgery [address] RODRIGUEZ [address] [place] [address] Assigned Musculoskeletal Provider 10/22/23 Jignesh Mathias MD [address] [place] [address] 6[address]99 Gastroenterology 09/25/24 Adonay Haq MD [address] [place] [address] 008395 Assigned PCP 10/01/24 12/28/24 Omar Carmona MD [address] [place] [address] 539385 Assigned PCP 12/29/24 Jason Alvares MD [address] [place] [address] 919335 Assigned Neuroscience Provider 12/29/24 Jignesh Mathias MD [address] [place] [address]2425 Assigned Surgical Provider 12/29/24 Ayad Lopez, PhD LP [address] [place] [address] 576605 Assigned Behavioral Health Provider 02/28/25 Gavi Nieto PA-C [address] [place] [address] [phone] Physician Pit Steward Dermatology 03/19/25 documented as of this encounter
--- OUTSIDE RECORDS SUMMARY | 2025-06-08 22:56 | XMS_ITS | Encounter Summary ---
Author Organization [facility] Address [address] [place] [address]22 Care Team Providers Care Machine Stone Polisher Name Role Phone Rio Jaquez MD Primary Care Provider Barry Kilpatrick MD Unavailable Michelle Henderson RN Unavailable [phone] Rio Jaquez MD Unavailable [phone] Jemima Jaramillo MD Unavailable Unavai Kelley Bautista RN Unavailable [phone] Sydnee Saleem MD Unavailable [phone] Karlene Moya MD Unavailable [phone] Wilbert Quintero OD Unavailable [phone] Rod Gauthier DPM Unavailable [phone] Nallely Hogue RN Unavailable Unavailable Larisa Vargas RN Unavailable Unavailable Francisco Lott MD Unavailable [phone] Greg Ortega MD Unavailable [phone] Jan Mahmood MD Unavailable [phone] Brandt Quintana MD Unavailable [phone] Jan Mahmood MD Unavailable Rio Jaquez [...] MD Unavailable Joesph Crowe MD Unavailable [phone] Joesph Crowe MD Unavailable [phone] Adonay Haq MD Unavailable [phone] Denilson Srinivasan MD Unavailable [phone] Jason Alvares MD Unavailable Ruth Riddle DPM, Podiatry /Foot and Ankle Surgery Unavailable Omar Carmona MD Primary Care Provider [phone] Jignesh Mathias MD Unavailable Adonay Haq MD Unavailable [phone] Omar Carmona MD Unavailable Jason Alvares MD Unavailable Jignesh Mathias MD Unavailable Ayad Lopez PhD LP Unavailable [phone] Gavi Nieto-C Unavailable [phone] Encounter Details Date Type Department Care Team (Late st Contact Info) Description 09/30/2021 [facility] Hepatology Clinic [address] [address] Jan Mahmood MD [address] [place] [address] Social History Tobacco Use Types Packs/Day Years [...] Answer Date Recorded PHQ-2 Score 2 08/27/2021 [facility] Questionnaire Answer [...] Sex Assigned at Female 09/12/2020 12:05 PM ASSEMBLER FOR PULLER OVER MACHINE Legal Sex Female 3:26 AM ASSEMBLER FOR PULLER OVER MACHINE Gender Identity Female 09/12/2020 12:05 PM ASSEMBLER FOR PULLER OVER MACHINE Sexual Orientation Straight 12/19/2021 10 :44 AM [...] COVID-19? No / Unsure 09/09/2021 11:42 AM ASSEMBLER FOR PULLER OVER MACHINE documented as of this encounter Plan of Treatment Upcoming Encounters Date Type Department Care Team (Late st Contact Info) Description 06/13/2025 6:00 PM ASSEMBLER FOR PULLER OVER MACHINE Ancillary Procedure [facility] Imaging Center CT Clinic [address]st [place] [address] Omar Carmona MD [address] [place] [address] [phone] 06/14/2025 4:00 PM ASSEMBLER FOR PULLER OVER MACHINE Office Visit [facility] Primary Care Clinic [address]th [place] [address] Omar Carmona MD [address] [place] [address] 06/15/2025 12:45 PM ASSEMBLER FOR PULLER OVER MACHINE Therapy Visit [facility] 150 [place] [phone] Jason Alvares MD [address] [place] [address] Chaya Castillo, OTR FV [address] 812897 06/19/2025 10:30 AM ASSEMBLER FOR PULLER OVER MACHINE Virtual Visit [facility] Primary Care Clinic [address] [place] [address] 4th [place] [phone] Omar Carmona MD [address] [place] [address] Gerson Santos [facility] 06/26/2025 11:00 AM ASSEMBLER FOR PULLER OVER MACHINE Therapy Visit [address] [phone] Jason Alvares MD [address] [place] [address] Chaya Castillo, OTR [facility] 150 [place] [address] 07/09/2025 12:45 PM ASSEMBLER FOR PULLER OVER MACHINE Therapy Visit [address] [phone] Jason Alvares MD [address] [place] [address] 224005 Chaya Castillo, OTR [address] [address] 07/18/2025 3:00 PM ASSEMBLER FOR PULLER OVER MACHINE Office Visit [facility] Heart [address] [phone] Adonay Chapman APRN AUTOMATION MACHINE OPERATOR 500 [place], [place] 615805 11/05/2025 12:30 PM CDT Lab [facility] Lab [address] [place] [phone] 11/05/2025 1:45 PM CDT Office Visit [facility] Dermatology [address]rd [place] [phone] Gavi Nieto, PANavinC Dermatology [address] [place] [address] [phone] 11/20/2025 10:30 AM CDT Virtual Visit [address] [address] Marquise Hanley MD [address] [place] [address] 895195 documented as of this encounter Goals Goal [...] Total Score: 5 08/27/19 22 9:25 AM ASSEMBLER FOR PULLER OVER MACHINE documented as of this encounter Care Teams Machine Stone Polisher Relationship Specialty Start Date End Date Rio Jaquez MD [address] [place] [address] PCP - General Family Practice 12/02/10 07/13/24 Omar Carmona MD [address] [place] [address]97 PCP - General Family Medicine 07/14/24 Barry Kilpatrick MD [address] [place] [address] [id number] [place], [place] 864285 Neurology 07/19/14 Michelle Henderson RN Nurse Coordinator Neurology 07/19/14 Rio Jaquez MD [address] [place] [address] 440625 Family Practice 10/15/14 Jemima Jaramillo MD rand butting machine operator 11/20/14 Kelley Chin, TANIA [address] 153835 Nurse Coordinator Cardiology 11/04/15 Sydnee Saleem MD 420 [facility] 508 [place], [place] 577325 Cardiology 11/04/15 Karlene Moya MD [address] [place] [address] 208845 Ophthalmology 06/24/17 Wilbert Quintero, OD [address] [place] [address] Optometry 06/24/17 Rod Gauthier DPM [address] [place] [address] [facility] Primary Podiatric Medicine 06/21/18 Nallely Hogue, RN Registered Nurse 02/20/19 11/23/22 Larisa Vargas, TANIA Specialty Lace Stripper Cardiology 04/18/19 03/06/22 Francisco Lott MD [address] [place] [address]34 Assigned Rheumatology Provider 05/31/20 12/13/21 Greg Ortega MD [address] [place] [address] 26999 Assigned Surgical Provider 06/23/20 12/06/21 Jan Mahmood MD [address] [place] [address] Gastroenterology 11/05/20 Brandt Quintana MD [address] [place] [address]394 Resident 11/05/20 Jan Mahmood MD [address] [place] [address] 52853 Assigned Gastroenterology Provider 12/01/20 Rio Jaquez MD [address] [place] [address] 80183 Assigned PCP 11/17/20 09/30/24 Dom Eason MD [address] [place] [address] Internal Medicine 12/02/20 Jayla Plaza, RN Specialty Lace Stripper Hepatology 01/09/21 02/13/24 Sydnee Saleem MD 6550 [facility] [address] [place] [address] Assigned Heart and Vascular Provider 02/02/21 07/24/22 Phan Coello MD Assigned Neuroscience Provider 02/21/21 11/22/21 [place] [address] [place] [address] Assigned Infectious Disease Provider 02/21/21 03/06/22 Dom Eason MD [address] [place] [address] Assigned Nephrology Provider 04/20/21 01/02/22 Jaimie Vernon, TANIA Specialty Lace Stripper Cardiology 10/28/21 Ruth Riddle DPM, Podiatry/Foot and Ankle Surgery [address] [place] [address] [address] Assigned Musculoskeletal Provider 11/30/21 09/30/23 Luis Arrington MD [address] [place] [address] Assigned Neuroscience Provider 11/23/21 01/02/22 Jason Alvares MD [address] [place] [address] 27888 Assigned Neuroscience Provider 01/03/22 05/15/22 Marquise Hanley MD [address] [place] [address]30 Endocrinology, Diabetes, and Metabolism 03/05/22 Vlad Ramey MD [address] [place] [address] 023005 Cardiovascular Disease 05/07/22 Joesph Crowe MD [address] [place] [address] 66333 Surgery 05/07/22 Luis Arrington MD [address] [place] [address] 32826 Assigned Neuroscience Provider 05/16/22 05/14/23 Michelle Padilla RN Specialty Lace Stripper Cardiology 07/03/22 Vlad Ramey MD [address] [place] [address] 367265 Assigned Heart and Vascular Provider 07/25/22 05/28/23 Marquise Hanley MD [address] [place] [address] 45874 Assigned Endocrinology Provider 08/15/22 Dom Eason MD [address] [place] [address]21 Assigned Nephrology Provider 11/28/22 02/19/23 Wagner Oliver MD [address] [place] [address] Critical Care 12/15/22 Laura Epperson NP 717 [facility] 1932 [place] [address] Assigned Nephrology Provider 02/20/23 08/30/24 Thom Taveras MD [address] [place], [place] 3625[address] [place] [address] Assigned Cancer Care Provider 02/06/23 08/20/23 Joesph Crowe MD [address] [place] [address] 21337 Surgery 03/17/23 Joesph Crowe MD [address] [place] [address] 61433 Assigned Surgical Provider 04/03/23 09/30/24 Adonay Haq MD [address] [place] [address] 95707 Internal Medicine 06/14/23OctoberDenilson MD [address] [facility] [address] [place] [address] Assigned Heart and Vascular Provider 05/29/23 11/28/24 Jason Alvares MD 420 [facility] 295 [place] [address] Assigned Neuroscience Provider 05/15/23 11/28/24 Ruth Riddle DPM, Podiatry/Foot and Ankle Surgery [address] [place] [address] RODRIGUEZ [address] [place] [address] 14872 Assigned Musculoskeletal Provider 10/22/23 Jignesh Mathias MD [address] [place] [address] 22143 Gastroenterology 09/25/24 Adonay Haq MD [address] [place] [address] 463895 Assigned PCP 10/01/24 12/28/24 Omar Carmona MD [address] [place] [address] [phone] Assigned PCP 12/29/24 Jason Alvares MD [address] [place] [address] 294975 Assigned Neuroscience Provider 12/29/24 Jignesh Mathias MD [address] [place] [address] 848305 Assigned Surgical Provider 12/29/24 Ayad Lopez, PhD LP [address] [place] [address] 605995 Assigned Behavioral Health Provider 02/28/25 Gavi Nieto PANavinC [address] [place] [address] [phone] Physician Singe Winder Dermatology 03/19/25 documented as of this encounter
--- OUTSIDE RECORDS SUMMARY | 2025-06-08 22:57 | XMS_ITS | Encounter Summary ---
Author Organization [facility] Address [address] [place] [address] Care Team Providers Care Floor Assembler Name Role Phone Rio Jaquez MD Primary Care Provider Barry Kilpatrick MD Unavailable Michelle Henderson I RN Unavailable [phone] Rio Jaquez MD Unavailable +[phone] Jemima Jaramillo MD Unavailable Unavai Kelley Bautista RN Unavailable [phone] Sydnee Saleem MD Unavailable +[phone] Karlene Moya MD Unavailable +[phone] Wilbert Quintero OD Unavailable +[phone] Rod Gauthier DPM Unavailable Jan Mahmood MD Unavailable [phone] Brandt Quintana MD Unavailable Jan Mahmood MD Unavailable +[phone] Rio Jaquez MD Unavailable [phone] Dom Eason MD Unavailable Jayla Plaza RN Unavailable +[phone] Jaimie Vernon RN Unavailable Unavailable Marquise Hanley MD Unavailable +[phone] Vlad Ramey MD Unavailable +[phone] Joesph Crowe MD Unavailable + [phone] Michelle Padilla RN Unavailable Unavaila ble Marquise Hanley MD Unavailable +[phone] Wagner Oliver MD Unavailable [phone] Laura Epperson NP Unavailable + [phone] Joesph Crowe MD Unavailable + [phone] Joesph Crowe MD Unavailable + [phone] Adonay Haq MD Unavailable [phone] Denilson Srinivasan MD Unavailable + [phone] Jason Alvares MD Unavailable Ruth Riddle DPM, Podiatry /Foot and Ankle Surgery Unavailable Omar Carmona MD Primary Care Provider [phone] Jignesh Mathias MD Unavailable Adonay Haq MD Unavailable [phone] Omar Carmona MD Unavailable [phone] Jason Alvares MD Unavailable Jignesh Mathias MD Unavailable Ayad Lopez PhD LP Unavailable +[phone] Gavi Nieto PA-C Unavailable [phone] Encounter Details Date Type Department Care Team (Late st Contact Info) Description 10/13/2023 [facility] [address] [address] Rio Jaquez MD [address] [address] Social History Tobacco Use Types Packs/Day Years Used Date Smoking Tobacco: Every Day Cigarettes 1 42.8 Started: 08/09/1982 Other Smokeless Tobacco: Never [...] than three times a week 08/27/2021 Attends Worship Services Not on file 08/27 Do you [...] Answer Date Recorded PHQ-2 Score 2 08/26/2023 [facility] - Occupational Stress [...] Sex Assigned at Female 09/12/2020 12:05 PM .NET PROGRAMMER Legal Sex Female 3:26 AM .NET PROGRAMMER Gender Identity Female 09/12/2020 12:05 PM .NET PROGRAMMER Sexual Orientation Straight 12/19/2021 10 :44 AM CDT Occupation Industry Job Start Date Job End Date on disability for FMS Not on file Not on file Not on file disabled Not on file Not on file Not on file documented as of this encounter Plan of Treatment Upcoming Encounters Date Type Department Care Team (Late st Contact Info) Description 06/13/2025 6:00 PM .NET PROGRAMMER Ancillary Procedure [address] [address] Omar Carmona MD [address] [place] [address] 210205 06/14/2025 4:00 PM .NET PROGRAMMER Office Visit [facility] [address] [phone] Omar Carmona MD [address] [place] [address] 071775 06/15/2025 12:45 PM .NET PROGRAMMER Therapy Visit [facility] 150 [place] [phone] Jason Alvares MD [address] [place] [address] 186355 Chaya Castillo, OTR [facility] 150 [place], [place] [address] 06/19/2025 10:30 AM .NET PROGRAMMER Virtual Visit [facility] [address] [phone] Omar Carmona MD [address] [place] [address] 247755 Gerson Santos [facility] 06/26/2025 11:00 AM .NET PROGRAMMER Therapy Visit [facility] [address] [place] [phone] Jason Alvares MD [address] [place] [address] 424405 Chaya Castillo OTR [facility] 150 [place], [place] [address]617 07/09/2025 12:45 PM .NET PROGRAMMER Therapy Visit [facility] 150 [place] [phone] Jason Alvares MD 420 [facility] 295 [place] [address] Chaya Castillo, OTR [facility] 150 [place] [address] 07/18/2025 3:00 PM .NET PROGRAMMER Office Visit [facility] Heart [address] [phone] Adonay Chapman APRN [facility] 500 [place] [address] 11/05/2025 12:30 PM CDT Lab [facility] Lab [address]st [place] [phone] 11/05/2025 1:45 PM CDT Office Visit [facility] Dermatology [address] 3rd [place] [phone] Gavi Nieto PANavinC Dermatology [address] [place] [address] 11/20/2025 10:30 AM CDT Virtual Visit [address] [address] Marquise Hanley MD [address] [place] [address] [phone] documented as of this encounter Goals Goal [...] Total Score: 9 06/14/20 23 7:18 AM .NET PROGRAMMER documented as of this encounter Care Teams Floor Assembler Relationship Specialty Start Date End Date Rio Jaquez MD [address] [place] [address]393 PCP - General Family Practice 12/02/10 07/13/24 Omar Carmona MD [address] [place] [address] 810615 PCP - General Family Medicine 07/14/24 Barry Kilpatrick MD [address] [place] [address] [id number] [place], [place] 951775 Neurology 07/19/14 Michelle Henderson I, TANIA Nurse Coordinator Neurology 07/19/14 Rio Jaquez MD [address] [place] [address] 110775 Family Practice 10/15/14 Jemima Jaramillo MD sweeping compound blender 11/20/14 Kelley Chin, TANIA [address] 545805 Nurse Coordinator Cardiology 11/04/15 Sydnee Saleem MD [facility] 508 [place], [place] 467775 Cardiology 11/04/15 Karlene Moya MD [address] [place], [place] 782925 Ophthalmology 06/24/17 Wilbert Quintero, OD 9 [place], [place] 370055 Optometry 06/24/17 Rod Gauthier DPM 909 [place], [place] 195215 Software Controls Engineer Primary Podiatric Medicine 06/21/18 Jan Mahmood MD [address] [place] [address] 2A [place], [place] 621625 MD Gastroenterology 11/05/20 Brandt Quintana MD [facility] [place] [address] Resident 11/05/20 Jan Mahmood MD 6 [facility] 2A [place] [address] Assigned Gastroenterology Provider 12/01/20 Rio Jaquez MD 9 [facility] 4 [place], [place] 183185 Assigned PCP 11/17/20 09/30/24 Dom Eason MD 717 [facility]EL 353 [place] [address] Internal Medicine 12/02/20 Jayla Plaza, RN Specialty Oracle Forms Developer Hepatology 01/09/21 02/13/24 Jaimie Vernon, TANIA Specialty Oracle Forms Developer Cardiology 10/28/21 Marquise Hanley MD [address] [place] [address] Endocrinology, Diabetes, and Metabolism 03/05/22 Vlad Ramey MD [address] [place] [address] Cardiovascular Disease 05/07/22 Joesph Crowe MD [address] [place] [address] 12363 Surgery 05/07/22 Michelle Padilla RN Specialty Oracle Forms Developer Cardiology 07/03/22 Marquise Hanley MD [address] [place] [address] Assigned Endocrinology Provider 08/15/22 Wagner Oliver MD [address] [place] [address] Critical Care 12/15/22 Laura Epperson NP [address] [place] [address] 1932 [place] [address] Assigned Nephrology Provider 02/20/23 08/30/24 Joesph Crowe MD [address] [place] [address] 9[address] Surgery 03/17/23 Joesph Crowe MD [address] [place] [address] Assigned Surgical Provider 04/03/23 09/30/24 Adonay Haq MD [address] [place] [address] Internal Medicine 06/14/23October, Denilson Jackson MD 6405 [facility] [address] [place], [place] 010475 Assigned Heart and Vascular Provider 05/29/23 11/28/24 Jason Alvares MD [address] [place] [address] 060225 Assigned Neuroscience Provider 05/15/23 11/28/24 Ruth Riddle DPM, Podiatry/Foot and Ankle Surgery [address] [place] [address] 042847 Assigned Musculoskeletal Provider 10/22/23 Jignesh Mathias MD [address] [place] [address] Gastroenterology 09/25/24 Adonay Haq MD [address] [place] [address] Assigned PCP 10/01/24 12/28/24 Omar Carmona MD [address] [place] [address] Assigned PCP 12/29/24 Jason Alvares MD 420 [facility] 295 [place] [address] Assigned Neuroscience Provider 12/29/24 Jignesh Mathias MD [address] [place] [address] Assigned Surgical Provider 12/29/24 Ayad Lopez, PhD LP 516 [place] [address] Assigned Behavioral Health Provider 02/28/25 Gavi Nieto PANavinC [address] [place] [address] [id number] Physician Felled Seam Operator Chainstitch Dermatology 03/19/25 documented as of this encounter
--- OUTSIDE RECORDS SUMMARY | 2025-06-08 22:57 | XMS_ITS | Encounter Summary ---
Author Organization [facility] Address [address] [place] [address] Care Team Providers Care Mercury Washer Name Role Phone Rio Jaquez MD Primary Care Provider Barry Kilpatrick MD Unavailable Michelle Henderson RN Unavailable [phone] Rio Jaquez MD Unavailable [phone] Jemima Jaramillo MD Unavailable Unavai Kelley Bautista RN Unavailable [phone] Sydnee Saleem MD Unavailable [phone] Karlene Moya MD Unavailable [phone] Wilbert Quintero OD Unavailable [phone] Rod Gauthier DPM Unavailable [phone] Nallely Hogue RN Unavailable Unavailable Larisa Vargas RN Unavailable Unavailable Francisco Lott MD Unavailable [phone] Greg Ortega MD Unavailable [phone] Jan Mahmood MD Unavailable [phone] Brandt Quintana MD Unavailable [phone] Jan Mahmood MD Unavailable Rio Jaquez MD Unavailable Dom Eason MD Unavailable [phone] Jayla Plaza RN Unavailable Jayla Plaza RN Unavailable Sydnee Saleem MD Unavailable Phan Coello MD Unavailable Unavailable Cristian Barragan MD Unavailable Dom Eason MD Unavailable [phone] Jaimie Vernon RN Unavailable Unavailable Ruth Riddle DPM, Podiatry /Foot and Ankle Surgery Unavailable Luis Arrington MD Unavailable Jason Alvares MD Unavailable Marquise Hanley MD Unavailable Vlad Ramey MD Unavailable Joesph Crowe MD Unavailable Luis Arrington MD Unavailable Michelle Padilla RN Unavailable Unavaila ble Vlad Ramey MD Unavailable Marquise Hanley MD Unavailable Dom Eason MD Unavailable Wagner Oliver MD Unavailable [phone] Laura Epperson NP Unavailable [phone] Thom Taveras MD Unavailable Joesph Crowe MD Unavailable Joesph Crowe MD Unavailable Adonay Haq MD Unavailable OctoberDenilson MD Unavailable [phone] Jason Alvares MD Unavailable Ruth Riddle DPM, Podiatry /Foot and Ankle Surgery Unavailable Omar Carmona MD Primary Care Provider Jignesh Mathias MD Unavailable Adonay Haq MD Unavailable Omar Carmona MD Unavailable Jason Alvares MD Unavailable Jignesh Mathias MD Unavailable Ayad Lopez PhD LP Unavailable [phone] Gavi Nieto PA-C Unavailable Encounter Details Date Type Department Care Team (Late st Contact Info) Description 11/25/2020 MyC Medical Advice [facility] [address] 4th [place] [address] Rio Jaquez MD [address] [place] [address] 4 [place] [address] Social History Tobacco Use [...] Sex Assigned at Female 09/12/2020 12:05 PM BLOCK OUT MACHINE OPERATOR Legal Sex Female 3:26 AM BLOCK OUT MACHINE OPERATOR Gender Identity Female 09/12/2020 12:05 PM BLOCK OUT MACHINE OPERATOR Sexual Orientation Straight 12/19/2021 10 [...] Jaquez. Patient confirmed appointment, will do via [employer]. Eliana Chacon, Electronic Tech, November 26, 2020 at 1:33 PM documented in this encounter Plan of Treatment Upcoming Encounters Date Type Department Care Team (Late st Contact Info) Description 06/13/2025 6:00 PM BLOCK OUT MACHINE OPERATOR Ancillary Procedure [facility] CT Clinic [address] 1st [place] [phone] Omar Carmona MD [address] [place] [address] 145045 06/14/2025 4:00 PM BLOCK OUT MACHINE OPERATOR Office Visit [facility] [address] 4th [place] [phone] Omar Carmona MD [address] [place] [address] 216195 06/15/2025 12:45 PM BLOCK OUT MACHINE OPERATOR Therapy Visit [facility] 150 [place] [phone] Jason Alvares MD [address] [place] [address] 366325 Chaya Castillo, [facility] 150 [place], [place] 0[address]907 06/19/2025 10:30 AM BLOCK OUT MACHINE OPERATOR Virtual Visit [facility] [address] [place] [address] 4th [place] [phone] Omar Carmona MD [address] [place] [address] Gerson Santos, [facility] 06/26/2025 11:00 AM BLOCK OUT MACHINE OPERATOR Therapy Visit [facility] 150 [place] [phone] Jason Alvares MD [address] [place] [address] 224605 Chaya Castillo, OTR [facility] 150 [place] [address] 07/09/2025 12:45 PM BLOCK OUT MACHINE OPERATOR Therapy Visit [facility] 150 [place] [phone] Jason Alvares MD [address] [place] [address] 009545 Chaya Castillo OTR [facility] 150 [place] [address] 07/18/2025 3:00 PM BLOCK OUT MACHINE OPERATOR Office Visit [facility] [address] [phone] Adonay Chapman APRN [address] 380225 11/05/2025 12:30 PM CDT Lab [facility] Lab [address] [phone] 11/05/2025 1:45 PM CDT Office Visit [facility] [place] [address] [facility] 3rd [place] [phone] Gavi Nieto PA-C Dermatology [address] [place] [address] 11/20/2025 10:30 AM CDT Virtual Visit [address] [phone] Marquise Hanley MD [address] [place] [address] 489285 documented as of this encounter Goals Goal [...] Depression Total Score: 12 021 9:43 AM BLOCK OUT MACHINE OPERATOR documented as of this encounter Care Teams Mercury Washer Relationship Specialty Start Date End Date Rio Jaquez MD [address] [place] [address] [place] 4 [place] [address] PCP - General Family Practice 12/02/10 07/13/24 Omar Carmona MD [address] [place] [address]77 PCP - General Family Medicine 07/14/24 Barry Kilpatrick MD [address] [place] [address] [id number] [place], [place] 711355 Neurology 07/19/14 Michelle Henderson I, RN Nurse Coordinator Neurology 07/19/14 Rio Jaquez MD [address] [place] [address] FL 4 [place], [place] 335355 Family Practice 10/15/14 Jemima Jaramillo MD monomer recovery operator 11/20/14 Kelley Chin, TANIA [address] 131405 Nurse Coordinator Cardiology 11/04/15 Sydnee Saleem MD [address] [place] [address] 508 [place], [place] 652085 Cardiology 11/04/15 Karlene Moya MD [address] [place] [address] Ophthalmology 06/24/17 Wilbert Quintero, OD [address] [place] [address] 324035 Optometry 06/24/17 Rod Gauthier DPM [address] [place] [address] 015215 Perianesthesia Manager Primary Podiatric Medicine 06/21/18 Nallely Hogue, RN Registered Nurse 02/20/19 11/23/22 Larisa Vargas, TANIA Specialty Long Lines Operator Cardiology 04/18/19 03/06/22 Francisco Lott MD [address] [place] [address] 88 [place] [address] Assigned Rheumatology Provider 05/31/20 12/13/21 Greg Ortega MD 909 [place] [address] Assigned Surgical Provider 06/23/20 12/06/21 Jan Mahmood MD [address] [place] [address] 2A [place] [address] Gastroenterology 11/05/20 Brandt Quintana MD [address] [place] [address] Resident 11/05/20 Jan Mahmood MD [address] [place] [address] 2A [place] [address] Assigned Gastroenterology Provider 12/01/20 Rio Jaquez MD 9 [facility] 4 [place] [address] Assigned PCP 11/17/20 09/30/24 Dom Eason MD 7 [facility] 353 [place] [address] Internal Medicine 12/02/20 Jayla Plaza, RN Specialty Long Lines Operator Hepatology 01/09/21 02/13/24 Jayla Plaza, RN Specialty Long Lines Operator Hepatology 01/10/21 01/10/21 Sydnee Saleem MD [address] [address] Assigned Heart and Vascular Provider 02/02/21 07/24/22 Phan Coello MD Assigned Neuroscience Provider 02/21/21 11/22/21 Cristian Barragan MD 2945 [place] [address] Assigned Infectious Disease Provider 02/21/21 03/06/22 Dom Eason MD [address] [place] [address] 353 [place] [address] Assigned Nephrology Provider 04/20/21 01/02/22 Jaimie Vernon, TANAI Specialty Long Lines Operator Cardiology 10/28/21 Ruth Riddle, DPM, Podiatry/Foot and Ankle Surgery [address]38 [facility] 300 [place], [place] 564647 Assigned Musculoskeletal Provider 11/30/21 09/30/23 Luis Arrington MD [address] [place] [address] 193005 Assigned Neuroscience Provider 11/23/21 01/02/22 Jason Alvares MD 420 [facility] 295 [place], [place] 716745 Assigned Neuroscience Provider 01/03/22 05/15/22 Marquise Hanley MD [address] [place] [address] Endocrinology, Diabetes, and Metabolism 03/05/22 Vlad Ramey MD [address] [place] [address] 35510 Cardiovascular Disease 05/07/22 Joesph Crowe MD [address] [place] [address]01 Surgery 05/07/22 Luis Arrington MD [address] [place] [address] 98407 Assigned Neuroscience Provider 05/16/22 05/14/23 Michelle Padilla, RN Specialty Long Lines Operator Cardiology 07/03/22 Vlad Ramey MD [address] [place] [address] 16637 Assigned Heart and Vascular Provider 07/25/22 05/28/23 Marquise Hanley MD [address] [place] [address] 24468 Assigned Endocrinology Provider 08/15/22 Dom Eason MD 7 [facility] 353 [place] [address] Assigned Nephrology Provider 11/28/22 02/19/23 Wagner Oliver MD [address] [place] [address] Critical Care 12/15/22 Laura Epperson, LULU 717 [facility] 1932 [place] [address] Assigned Nephrology Provider 02/20/23 08/30/24 Thom Taveras MD [facility] [address], [address] [place] [address] Assigned Cancer Care Provider 02/06/23 08/20/23 Joesph Crowe MD [address] [place] [address] 6[address] MD Surgery 03/17/23 Joesph Crowe MD [address] [place] [address] 28112 Assigned Surgical Provider 04/03/23 09/30/24 Adonay Haq MD [address] [place] [address] 296185 Internal Medicine 06/14/23OctoberDenilson MD [address] [facility] [address] [place], [place] 079105 Assigned Heart and Vascular Provider 05/29/23 11/28/24 Jason Alvares MD [address] [place] [address] 295 [place], [place] 595255 Assigned Neuroscience Provider 05/15/23 11/28/24 Ruth Riddle DPM, Podiatry/Foot and Ankle Surgery [address] [place], [place] 230027 Assigned Musculoskeletal Provider 10/22/23 Jignesh Mathias MD [address] [place] [address] 11889 Gastroenterology 09/25/24 Adonay Haq MD [address] [place] [address] 440425 Assigned PCP 10/01/24 12/28/24 Omar Carmona MD [address] [place] [address] 277435 Assigned PCP 12/29/24 Jason Alvares MD [address] [place] [address] 342795 Assigned Neuroscience Provider 12/29/24 Jignesh Mathias MD [address] [place] [address] 297005 Assigned Surgical Provider 12/29/24 Ayad Lopez, PhD LP [address] [place] [address] 285905 Assigned Behavioral Health Provider 02/28/25 Gavi Nieto PANavinC [address] [place] [address] 899785 Physician Clerk Specialist Dermatology 03/19/25 documented as of this encounter
--- OUTSIDE RECORDS SUMMARY | 2025-06-08 22:57 | XMS_ITS | Encounter Summary ---
Author Organization [place] Address [address] [place] [address] Care Team Providers Care Chief Clinical Officer Name Role Phone Rio Jaquez MD Primary Care Provider Barry Kilpatrick MD Unavailable Michelle Henderson I RN Unavailable [phone] Rio Jaquez MD Unavailable +[phone] Jemima Jaramillo MD Unavailable Unavai Kelley Bautista RN Unavailable +[phone] Sydnee Saleem MD Unavailable +[phone] Karlene Moya MD Unavailable +[phone] Wilbert Quintero OD Unavailable +[phone] Rod Gauthier DPM Unavailable Jan Mahmood MD Unavailable +[phone] Brandt Quintana MD Unavailable Jan Mahmood MD Unavailable +[phone] Rio Jaquez MD Unavailable +[phone] Dom Eason MD Unavailable Jayla Plaza RN Unavailable +[phone] Jaimie Vernon RN Unavailable Unavailable Marquise Hanley MD Unavailable +[phone] Vlad Ramey MD Unavailable +[phone] Joesph Crowe MD Unavailable + [phone] Michelle Padilla RN Unavailable Unavaila ble Marquise Hanley MD Unavailable +-[phone] Wagner Oliver MD Unavailable +[phone] ZeenatLaura rodriguez NP Unavailable +[phone] Joesph Crowe MD Unavailable +[phone] Joesph Crowe MD Unavailable + [phone] Adonay Haq MD Unavailable +[phone] Denilson Srinivasan MD Unavailable + [phone] Jason Alvares MD Unavailable Ruth Riddle DPM, Podiatry /Foot and Ankle Surgery Unavailable Omar Carmona MD Primary Care Provider [phone] Jignesh Mathias MD Unavailable Adonay Haq MD Unavailable [phone] Omar Carmona MD Unavailable +[phone] Jason Alvares MD Unavailable Jignesh Mathias MD Unavailable Ayad Lopez PhD LP Unavailable +[phone] Gavi Nieto PA-C Unavailable +[phone] Encounter Details Date Type Department Care Team (Late st Contact Info) Description 12/20/2023 [facility] Gastroenterology Clinic [address] [address] Valerie Nation Social History Tobacco [...] Answer Date Recorded PHQ-2 Score 2 08/26/2023 [facility] - Occupational Stress Questionnaire Answer [...] Assigned at Female 09/12/2020 12:05 PM MANAGER OF TRAINING Legal Sex Female 3:26 AM MANAGER OF TRAINING Gender Identity Female 09/12/2020 12:05 PM MANAGER OF TRAINING Sexual Orientation Straight 12/19/2021 10 :44 AM CDT Occupation Industry Job Start Date Job End Date on disability for FMS Not on file Not on file Not on file disabled Not on file Not on file Not on file documented as of this encounter Plan of Treatment Upcoming Encounters Date Type Department Care Team (Late st Contact Info) Description 06/13/2025 6:00 PM MANAGER OF TRAINING Ancillary Procedure [facility] Clinic [address] [address] Omar Carmona MD [address] [place] [address] 06/14/2025 4:00 PM MANAGER OF TRAINING Office Visit [facility] Primary Care [address] [phone] Omar Carmona MD [address] [place] [address] 06/15/2025 12:45 PM MANAGER OF TRAINING Therapy Visit [facility] [address] [place] [phone] Jason Alvares MD [address] [place] [address] [address] [place], [place] 432335 Chaya Castillo OTR [facility] [address] [place], [place] [address]4437 06/19/2025 10:30 AM MANAGER OF TRAINING Virtual Visit [facility] Primary Care [address] [phone] Omar Carmona MD [address] [place] [address] 578695 Gerson Santos [facility] 06/26/2025 11:00 AM MANAGER OF TRAINING Therapy Visit [facility] [address] [place] [phone] Jason Alvares MD [address] [place] [address] [address] [place], [place] 827935 Chaya Castillo OTR [facility] [address] [place] [address] 07/09/2025 12:45 PM MANAGER OF TRAINING Therapy Visit [facility] [address] [place] [phone] Jason Alvares MD 420 [facility] [address] [place], [place] 245495 Chaya Castillo, OTR [address] [address] 07/18/2025 3:00 PM MANAGER OF TRAINING Office Visit [facility] Heart [address] [phone] Adonay Chapman APRN [facility] 500 [place], [place] 835865 11/05/2025 12:30 PM CDT Lab [facility] Lab [address] 1st [place] [phone] 11/05/2025 1:45 PM CDT Office Visit [facility] Dermatology [address] 3rd [place] [phone] Gavi Nieto PA-C Dermatology [address] [place] [address] [id number] 11/20/2025 10:30 AM CDT Virtual Visit [address] [place] [phone] Marquise Hanley MD [address] [place] [address] 683185 documented as of this encounter Goals Goal [...] Total Score: 9 06/14/20 23 7:18 AM MANAGER OF TRAINING documented as of this encounter Care Teams Chief Clinical Officer Relationship Specialty Start Date End Date Rio Jaquez MD [address] [place] [address] 4 [place] [address] PCP - General Family Practice 12/02/10 07/13/24 Omar Carmona MD [address] [place] [address] 920095 PCP - General Family Medicine 07/14/24 Barry Kilpatrick MD [address] [place] [address] [place], [place] 9197[address] Neurology 07/19/14 Michelle Henderson I, RN Nurse Coordinator Neurology 07/19/14 Rio Jaquez MD [address] [place] [address] Family Practice 10/15/14 Jemima Jaramillo MD market garden worker 11/20/14 Kelley Chin, TANIA [address] 620665 Nurse Coordinator Cardiology 11/04/15 Sydnee Saleem MD [address] [place] [address] 508 [place], [place] 659245 Cardiology 11/04/15 Karlene Moya MD [address] [place] [address] Ophthalmology 06/24/17 Wilbert Quintero OD [address] [place] [address] Optometry 06/24/17 Rod Gauthier DPM [address] [place] [address] Director Industrial Nursing Primary Podiatric Medicine 06/21/18 Jan Mahmood MD [address] [place] [address] Gastroenterology 11/05/20 Brandt Quintana MD [address] [place] [address] Resident 11/05/20 Jan Mahmood MD [address] [place] [address] Assigned Gastroenterology Provider 12/01/20 Rio Jaquez MD [address] [place] [address] Assigned PCP 11/17/20 09/30/24 Dom Eason MD [address] [address] Internal Medicine 12/02/20 Jayla Plaza, RN Specialty Adjunct Political Science Instructor Hepatology 01/09/21 02/13/24 Jaimie Vernon, TANIA Specialty Adjunct Political Science Instructor Cardiology 10/28/21 Marquise Hanley MD [address] [place] [address] Endocrinology, Diabetes, and Metabolism 03/05/22 Vlad Ramey MD [address] [place] [address] Cardiovascular Disease 05/07/22 Joesph Crowe MD [address] [place] [address] MD Surgery 05/07/22 Michelle Padilla RN Specialty Adjunct Political Science Instructor Cardiology 07/03/22 Marquise Hanley MD [address] [place] [address] Assigned Endocrinology Provider 08/15/22 Wagner Oliver MD [address] [place] [address] Critical Care 12/15/22 Laura Epperson NP [address] [place] [address] [address] [place] [address] Assigned Nephrology Provider 02/20/23 08/30/24 Joesph Crowe MD [address] [place] [address] Surgery 03/17/23 Joesph Crowe MD [address] [place] [address] Assigned Surgical Provider 04/03/23 09/30/24 Adonay Haq MD [address] [place] [address] Internal Medicine 06/14/23October, Denilson Jackson MD [address] [facility] [address] [place] [address] Assigned Heart and Vascular Provider 05/29/23 11/28/24 Jason Alvares MD [address] [place] [address] Assigned Neuroscience Provider 05/15/23 11/28/24 Ruth Riddle DPM, Podiatry/Foot and Ankle Surgery [address] [place] [address] Assigned Musculoskeletal Provider 10/22/23 Jignesh Mathias MD [address] [place] [address] Gastroenterology 09/25/24 Adonay Haq MD [address] [place] [address] Assigned PCP 10/01/24 12/28/24 Omar Carmona MD [address] [place] [address] Assigned PCP 12/29/24 Jason Alvares MD [address] [place] [address] Assigned Neuroscience Provider 12/29/24 Jignesh Mathias MD [address] [place] [address] Assigned Surgical Provider 12/29/24 Ayad Lopez, PhD LP [address] [place] [address] Assigned Behavioral Health Provider 02/28/25 Gavi Nieto PANavinC [address] [place] [address] Physician Cloth Trimmer Hand Dermatology 03/19/25 documented as of this encounter
--- OUTSIDE RECORDS SUMMARY | 2025-06-08 22:57 | XMS_ITS | Encounter Summary ---
Author Organization [place] Address [address] [place] [address] Care Team Providers Care Plating Tank Operator Name Role Phone Rio Jaquez MD Primary Care Provider Barry Kilpatrick MD Unavailable Michelle Henderson I RN Unavailable [phone] Rio Jaquez MD Unavailable +[phone] Jemima Jaramillo MD Unavailable Unavai Kelley Bautista RN Unavailable [phone] Sydnee Saleem MD Unavailable +[phone] Karlene Moya MD Unavailable Wilbert Quintero OD Unavailable +[phone] Rod Gauthier DPM Unavailable +[phone] Jan Mahmood MD Unavailable [phone] Brandt Quintana MD Unavailable Jan Mahmood MD Unavailable +[phone] Rio Jaquez MD Unavailable [phone] Dom Eason MD Unavailable Jayla Plaza RN Unavailable +[phone] Jaimie Vernon RN Unavailable Unavailable Marquise Hanley MD Unavailable +[phone] Vlad Ramey MD Unavailable +[phone] Joesph Crowe MD Unavailable + [phone] Michelle Padilla RN Unavailable Unavaila ble Marquise Hanley MD Unavailable +[phone] Wagner Oliver MD Unavailable +[phone] ZeenatLaura rodriguez NP Unavailable + [phone] Joesph Crowe MD Unavailable + [phone] Joesph Crowe MD Unavailable + [phone] Adonay Haq MD Unavailable [phone] Denilson Srinivasan MD Unavailable + [phone] Jason Alvares MD Unavailable Ruth Riddle DPM, Podiatry /Foot and Ankle Surgery Unavailable Omar Carmona MD Primary Care Provider [phone] Jignesh Mathias MD Unavailable Adonay Haq MD Unavailable [phone] Omar Carmona MD Unavailable +[phone] Jason Alvares MD Unavailable Jignesh Mathias MD Unavailable Ayad Lopez PhD LP Unavailable [phone] Gavi Nieto PA-C Unavailable [phone] Encounter Details Date Type Department Care Team (Late st Contact Info) Description 12/07/2023 [facility] Hepatology [address] [phone] Jayla Plaza, RN Social History [...] Answer Date Recorded PHQ-2 Score 2 08/26/2023 [facility] - [...] Sex Assigned at Female 09/12/2020 12:05 PM HYDROGRAPHY TEACHER Legal Sex Female 3:26 AM HYDROGRAPHY TEACHER Gender Identity Female 09/12/2020 12:05 PM HYDROGRAPHY TEACHER Sexual Orientation Straight 12/19/2021 10 :44 AM CDT Occupation Industry Job Start Date Job End Date on disability for FMS Not on file Not on file Not on file disabled Not on file Not on file Not on file documented as of this encounter Plan of Treatment Upcoming Encounters Date Type Department Care Team (Late st Contact Info) Description 06/13/2025 6:00 PM HYDROGRAPHY TEACHER Ancillary Procedure [facility] CT Clinic [address] [phone] Omar Carmona MD [address] [place] [address] 06/14/2025 4:00 PM HYDROGRAPHY TEACHER Office Visit [facility] Primary Care [address] [phone] Omar Carmona MD [address] [place] [address] 06/15/2025 12:45 PM HYDROGRAPHY TEACHER Therapy Visit [facility] [address] [place] [phone] Jason Alvares MD [address] [place] [address] Chaya Castillo, OTR [facility] [address] [place], [place] 6[address]177 06/19/2025 10:30 AM HYDROGRAPHY TEACHER Virtual Visit [facility] Primary Care [address] [phone] Omar Carmona MD [address] [place] [address] Gerson Santos [facility] 06/26/2025 11:00 AM HYDROGRAPHY TEACHER Therapy Visit [facility] [address] [facility] [place] [phone] Jason Alvares MD [address] [place] [address] [phone] Chaya Castillo, OTR [facility] [address] [place] [address] 07/09/2025 12:45 PM HYDROGRAPHY TEACHER Therapy Visit [facility] [address] [place] [phone] Jason Alvares MD 420 [facility] 295 [place] [address] Chaya Castillo, OTR [facility] 150 [place] [address] 07/18/2025 3:00 PM HYDROGRAPHY TEACHER Office Visit [facility] Heart [address] [phone] Adonay Chapman APRN [facility] 500 [place], [place] 86[address]05 11/05/2025 12:30 PM CDT Lab [facility] Lab [address] [place] [phone] 11/05/2025 1:45 PM CDT Office Visit [facility] Dermatology [address] [phone] Gavi Nieto PA-C Dermatology [address] [place] [address] 11/20/2025 10:30 AM CDT Virtual Visit [address] [address] Marquise Hanley MD [address] [place] [address] documented as of this encounter Goals Goal [...] Total Score: 9 06/14/20 23 7:18 AM HYDROGRAPHY TEACHER documented as of this encounter Care Teams Plating Tank Operator Relationship Specialty Start Date End Date Rio Jaquez MD [address] [place] [address] PCP - General Family Practice 12/02/10 07/13/24 Omar Carmona MD [address] [place] [address] 624405 PCP - General Family Medicine 07/14/24 Barry Kilpatrick MD [address] [place] [address] [id number] [place], [place] 725[address] Neurology 07/19/14 Michelle Henderson I, RN Nurse Coordinator Neurology 07/19/14 Rio Jaquez MD [address] [place] [address] 625405 Family Practice 10/15/14 Jemima Jaramillo MD oleo hasher and renderer 11/20/14 Kelley Chin, TANIA [address] [phone] Nurse Coordinator Cardiology 11/04/15 Sydnee Saleem MD [address] [place] [address] 508 [place] [address] Cardiology 11/04/15 Karlene Moya MD 6 [place] [address] Ophthalmology 06/24/17 Wilbert Quintero OD [address] [place] [address] Optometry 06/24/17 Rod Gauthier DPM [address] [place] [address] Mulcher Operator Primary Podiatric Medicine 06/21/18 Jan Mahmood MD [address] [place] [address] Gastroenterology 11/05/20 Brandt Quintana MD [address] [place] [address] Resident 11/05/20 Jan Mahmood MD [address] [place] [address] Assigned Gastroenterology Provider 12/01/20 Rio Jaquez MD [address] [place] [address] 4 [place] [address] Assigned PCP 11/17/20 09/30/24 Dom Eason MD 717 [facility] 353 [place] [address] Internal Medicine 12/02/20 Jayla Plaza, RN Specialty Varnish Dipper Hepatology 01/09/21 02/13/24 Jaimie Vernon, RN Specialty Varnish Dipper Cardiology 10/28/21 Marquise Hanley MD [address] [place] [address] Endocrinology, Diabetes, and Metabolism 03/05/22 Vlad Ramey MD [address] [place] [address] Cardiovascular Disease 05/07/22 Joesph Crowe MD [address] [place] [address] MD Surgery 05/07/22 Michelle Padilla RN Specialty Varnish Dipper Cardiology 07/03/22 Marquise Hanley MD [address] [place] [address] Assigned Endocrinology Provider 08/15/22 Wagner Oliver MD [address] [facility] [address] Critical Care 12/15/22 Laura Epperson NP [address] [place] [address] [address] [place] [address] Assigned Nephrology Provider 02/20/23 08/30/24 Joesph Crowe MD [address] [place] [address] Surgery 03/17/23 Joesph Crowe MD [address] [place] [address] Assigned Surgical Provider 04/03/23 09/30/24 Adonay Haq MD [address] [place] [address] Internal Medicine 06/14/23OctoberDenilson MD [address] [facility] [address] [place] [address] Assigned Heart and Vascular Provider 05/29/23 11/28/24 Jason Alvares MD [address] [place] [address] Assigned Neuroscience Provider 05/15/23 11/28/24 Ruth Riddle DPM, Podiatry/Foot and Ankle Surgery [address] [place] [address] Assigned Musculoskeletal Provider 10/22/23 Jignesh Mathias MD [address] [place] [address] Gastroenterology 09/25/24 Adonay Haq MD [address] [place] [address] Assigned PCP 10/01/24 12/28/24 Omar Carmona MD [address] [place] [address] Assigned PCP 12/29/24 Jason Alvares MD [address] [place] [address] 363965 Assigned Neuroscience Provider 12/29/24 Jignesh Mathias MD [address] [place] [address] Assigned Surgical Provider 12/29/24 Ayad Lopez, PhD LP [address] [place] [address] 372365 Assigned Behavioral Health Provider 02/28/25 Gavi Nieto, PANavinC [address] [place], [place] 433065 Physician [employer] Clerk Dermatology 03/19/25 documented as of this encounter
--- OUTSIDE RECORDS SUMMARY | 2025-06-08 22:57 | XMS_ITS | Encounter Summary ---
Author Organization [facility] Address [address] [place] [address]95 Care Team Providers Care Inspector Returned Materials Name Role Phone Rio Jaquez MD Primary Care Provider Barry Kilpatrick MD Unavailable Michelle Henderson I RN Unavailable Rio Jaquez MD Unavailable +[phone] Jemima Jaramillo MD Unavailable Unavai Kelley Bautista RN Unavailable [phone] Sydnee Saleem MD Unavailable +[phone] Karlene Moya MD Unavailable +[phone] Wilbert Quintero OD Unavailable +[phone] Rod Gauthier DPM Unavailable Jan Mahmood MD Unavailable +[phone] Brandt Quintana MD Unavailable Jan Mahmood MD Unavailable +[phone] Rio Jaquez MD Unavailable +[phone] Dom Eason MD Unavailable Jayla Plaza RN Unavailable +[phone] Jaimie Vernon RN Unavailable Unavailable Ruth Riddle DPM, Podiatry /Foot and Ankle Surgery Unavailable Marquise Hanley MD Unavailable +[phone] Vlad Ramey MD Unavailable +[phone] Joesph Crowe MD Unavailable + [phone] Michelle Padilla RN Unavailable Unavaila ble Marquise Hanley MD Unavailable +[phone] Wagner Oliver MD Unavailable +[phone] Laura Epperson NP Unavailable +[phone] Joesph Crowe MD Unavailable + [phone] Joesph Crowe MD Unavailable + [phone] Adonay Haq MD Unavailable [phone] OctoberDenilson MD Unavailable + [phone] Jason Alvares MD Unavailable Ruth Riddle DPM, Podiatry /Foot and Ankle Surgery Unavailable Omar Carmona MD Primary Care Provider [phone] Jignesh Mathias MD Unavailable Adonay Haq MD Unavailable [phone] Omar Carmona MD Unavailable +[phone] Jason Alvares MD Unavailable Jignesh Mathias MD Unavailable Ayad Lopez PhD LP Unavailable +[phone] Gavi Nieto PA-C Unavailable +[phone] Encounter Details Date Type Department Care Team (Late st Contact Info) Description 09/20/2023 [facility] Hepatology Clinic [address] [phone] Lizbeth Lopes Social History Tobacco Use Types [...] Answer Date Recorded PHQ-2 Score 2 08/26/2023 [facility] - Occupational Stress Questionnaire [...] Assigned at Female 09/12/2020 12:05 PM DIRECTOR CALL Legal Sex Female 3:26 AM DIRECTOR CALL Gender Identity Female 09/12/2020 12:05 PM DIRECTOR CALL Sexual Orientation Straight 12/19/2021 10 :44 AM CDT Occupation Industry Job Start Date Job End Date on disability for FMS Not on file Not on file Not on file disabled Not on file Not on file Not on file documented as of this encounter Plan of Treatment Upcoming Encounters Date Type Department Care Team (Late st Contact Info) Description 06/13/2025 6:00 PM DIRECTOR CALL Ancillary Procedure [address] [phone] Omar Carmona MD [address] [place] [address] 06/14/2025 4:00 PM DIRECTOR CALL Office Visit [facility] Primary Care [address] [phone] Omar Carmona MD [address] [place] [address] 006245 06/15/2025 12:45 PM DIRECTOR CALL Therapy Visit [facility] 150 [place] [phone] Jason Alvares MD [address] [place] [address] 471835 Chaya Castillo OTR [facility] 150 [place], [place] 581397 06/19/2025 10:30 AM DIRECTOR CALL Virtual Visit [facility] Primary Care [address] [phone] Omar Carmona MD [address] [place] [address] [facility] [facility] 06/26/2025 11:00 AM DIRECTOR CALL Therapy Visit [facility] [place] [phone] Jason Alvares MD [address] [place] [address] 509875 Chaya Castillo, OTR [facility] 150 [facility] [place], [place] 248237 07/09/2025 12:45 PM DIRECTOR CALL [facility] 150 [place] [phone] Jason Alvares MD 420 [facility] 295 [place] [address] Chaya Castillo, OTR [facility] 150 [place] [address] 07/18/2025 3:00 PM DIRECTOR CALL Office Visit [facility] Heart [address] [phone] Adonay Chapman APRN [facility] 500 [place], [place] 912605 11/05/2025 12:30 PM CDT Lab [facility] Lab [address] [place] [phone] 11/05/2025 1:45 PM CDT Office Visit [facility] Dermatology Clinic [address] [place] [phone] Gavi Nieto PA-C Dermatology [address] [place] [address] 11/20/2025 10:30 AM CDT Virtual Visit [address] [phone] Marquise Hanley MD [address] [place] [address] 716245 documented as of this encounter Goals Goal [...] Score: 9 06/14/20 23 7:18 AM DIRECTOR CALL documented as of this encounter Care Teams Inspector Returned Materials Relationship Specialty Start Date End Date Rio Jaquez MD [address] [place] [address] 4 [place] [address] PCP - General Family Practice 12/02/10 07/13/24 Omar Carmona MD [address] [place] [address] 13597 PCP - General Family Medicine 07/14/24 Barry Kilpatrick MD [address] [place] [address] [id number] [place] [address] Neurology 07/19/14 Michelle Henderson I, RN Nurse Coordinator Neurology 07/19/14 Rio Jaquez MD [address] [place] [address] 75796 Family Practice 10/15/14 Jemima Jaramillo MD rail flaw detector operator 11/20/14 Kelley Chin, TANIA [address] 066535 Nurse Coordinator Cardiology 11/04/15 Sydnee Saleem MD [address] [place] [address] 508 [place], [place] 385135 Cardiology 11/04/15 Karlene Moya MD 516 [place], [place] 079455 Ophthalmology 06/24/17 Wilbert Quintero OD 909 [place], [place] 873645 Optometry 06/24/17 Rod Gauthier DPM 909 [place], [place] 505515 Middleware Consultant Primary Podiatric Medicine 06/21/18 Jan Mahmood MD 516 [facility] 2A [place], [place] 491765 MD Gastroenterology 11/05/20 Brandt Quintana MD [facility]4 [place] [address] Resident 11/05/20 Jan Mahmood MD 6 [facility] 2A [place], [place] 079875 Assigned Gastroenterology Provider 12/01/20 Rio Jaquez MD 909 [facility] 4 [place] [address] Assigned PCP 11/17/20 09/30/24 Dom Eason MD 717 [facility] 353 [place] [address] Internal Medicine 12/02/20 Jayla Plaza, RN Specialty Credit Collections Specialist Hepatology 01/09/21 02/13/24 Jaimie Vernon, TANIA Specialty Credit Collections Specialist Cardiology 10/28/21 Ruth Riddle, DPM, Podiatry/Foot and Ankle Surgery [address] [place] [address] Assigned Musculoskeletal Provider 11/30/21 09/30/23 Marquise Hanley MD [address] [place] [address] Endocrinology, Diabetes, and Metabolism 03/05/22 Vlad Ramey MD [address] [place] [address] 15211 Cardiovascular Disease 05/07/22 Joesph Crowe MD [address] [place] [address] 59174 Surgery 05/07/22 Michelle Padilla RN Specialty Credit Collections Specialist Cardiology 07/03/22 Marquise Hanley MD [address] [place] [address] 13131 Assigned Endocrinology Provider 08/15/22 Wagner Oliver MD [address] [place] [address] Critical Care 12/15/22 Laura Epperson, LULU [address] [place] [address] 1932 [place] [address] Assigned Nephrology Provider 02/20/23 08/30/24 Joesph Crowe MD [address] [place] [address] 93157 Surgery 03/17/23 Joesph Crowe MD [address] [place] [address] 56856 Assigned Surgical Provider 04/03/23 09/30/24 Adonay Haq MD [address] [place] [address] Internal Medicine 06/14/23OctoberDenilson MD 6405 [facility] CLEO Black [facility] [address] [place] [address] Assigned Heart and Vascular Provider 05/29/23 11/28/24 Jason Alvares MD [address] [place] [address] Assigned Neuroscience Provider 05/15/23 11/28/24 Ruth Riddle, DPM, Podiatry/Foot and Ankle Surgery [address] [place] [place], [place] 919207 Assigned Musculoskeletal Provider 10/22/23 Jignesh Mathias MD [address] [place] [address] 17626 Gastroenterology 09/25/24 Adonay Haq MD [address] [place] [address] Assigned PCP 10/01/24 12/28/24 Omar Carmona MD [address] [place] [address] Assigned PCP 12/29/24 Jason Alvares MD [address] [place] [address] Assigned Neuroscience Provider 12/29/24 Jignesh Mathias MD [address] [place] [address] Assigned Surgical Provider 12/29/24 Ayad Lopez, PhD LP [address] [place] [address] [phone] Assigned Behavioral Health Provider 02/28/25 Gavi Nieto PANavinC [address] [place] [address] [phone] Physician Manager Agricultural Dermatology 03/19/25 documented as of this encounter
--- OUTSIDE RECORDS SUMMARY | 2025-06-08 22:57 | XMS_ITS | Encounter Summary ---
Author Organization [facility] Address [address] [place] [address] 98[address] Care Team Providers Care Ophthalmic Dispenser Name Role Phone Rio Jaquez MD Primary Care Provider Barry Kilpatrick MD Unavailable Michelle Henderson I RN Unavailable [phone] Rio Jaquez MD Unavailable +[phone] Jemima Jaramillo MD Unavailable Unavai Kelley Bautista RN Unavailable [phone] Sydene Saleem MD Unavailable +[phone] Karlene Moya MD Unavailable Wilbert Quintero OD Unavailable +[phone] Rod Gauthier DPM Unavailable Jan Mahmood MD Unavailable [phone] Brandt Quintana MD Unavailable [phone] Jan Mahmood MD Unavailable +[phone] Rio Jaquez MD Unavailable [phone] Dom Eason MD Unavailable Jayla Plaza RN Unavailable +[phone] aJimie Vernon RN Unavailable Unavailable Marquise Hanley MD Unavailable +[phone] Vlad Ramey MD Unavailable +[phone] Joesph Crowe MD Unavailable + [phone] Michelle Padilla RN Unavailable Unavaila ble Marquise Hanley MD Unavailable +[phone] Wagner Oliver MD Unavailable +[phone] Laura Epperson NP Unavailable + [phone] Joesph Crowe MD Unavailable +[phone] Joesph Crowe MD Unavailable + [phone] Adonay Haq MD Unavailable [phone] Denilson Srinivasan MD Unavailable + [phone] Jason Alvares MD Unavailable Ruth Riddle DPM, Podiatry /Foot and Ankle Surgery Unavailable Omar Carmona MD Primary Care Provider [phone] Jignesh Mathias MD Unavailable Adonay Haq MD Unavailable [phone] Omar Carmona MD Unavailable +[phone] Jason Alvares MD Unavailable Jignesh Mathias MD Unavailable Ayad Lopez PhD LP Unavailable +[phone] Gavi Nieto PA-C Unavailable [phone] Encounter Details Date Type Department Care Team (Late st Contact Info) Description 12/15/2023 [facility] Hepatology [address] [phone] Jan Mahmood MD 6 [facility] 2A [place] [address] Social History Tobacco Use Types Packs/Day Years [...] 08/26/2023 [facility] ional [facility] - [...] Sex Assigned at Female 09/12/2020 12:05 PM CASH APPLICATIONS CLERK Legal Sex Female 3:26 AM CASH APPLICATIONS CLERK Gender Identity Female 09/12/2020 12:05 PM CASH APPLICATIONS CLERK Sexual Orientation Straight 12/19/2021 10 :44 AM CDT Occupation Industry Job Start Date Job End Date on disability for FMS Not on file Not on file Not on file disabled Not on file Not on file Not on file documented as of this encounter Plan of Treatment Upcoming Encounters Date Type Department Care Team (Late st Contact Info) Description 06/13/2025 6:00 PM CASH APPLICATIONS CLERK Ancillary Procedure [address] [phone] Omar Carmona MD [address] [place] [address] 814015 06/14/2025 4:00 PM CASH APPLICATIONS CLERK Office Visit [facility] Primary Care [address] [phone] Omar Carmona MD [address] [place] [address] 025545 06/15/2025 12:45 PM CASH APPLICATIONS CLERK Therapy Visit [facility] 150 [place] [phone] Jason Alvares MD [address] [place] [address] 067215 Chaya Castillo, [facility]TR [facility] 150 [place], [place] 572897 06/19/2025 10:30 AM CASH APPLICATIONS CLERK Virtual Visit [facility] Care [address] [phone] Omar Carmona MD [address] [place] [address] 744225 Gerson Santos [facility] 06/26/2025 11:00 AM CASH APPLICATIONS CLERK Therapy Visit [facility] 150 [place] [phone] Jason Alvares MD [address] [place] [address] 216835 Chaay Castillo, OTR [facility] 150 [place] [address] 07/09/2025 12:45 PM CASH APPLICATIONS CLERK Therapy Visit [facility] Rehabilitation [facility] 150 [place] [phone] Jason Alvares MD 420 [facility] 295 [place] [address] Chaya Castillo, OTR [facility] 150 [place] [address] 07/18/2025 3:00 PM CASH APPLICATIONS CLERK Office Visit [facility] Heart [address] [phone] Adonay Chapman APRN [facility] 500 [place] [address] 11/05/2025 12:30 PM CDT Lab [facility] Lab [address] 1st [place] [phone] 11/05/2025 1:45 PM CDT Office Visit [facility] Dermatology [address]rd [place] [phone] Gavi Nieto PANavinC Dermatology [address] [place] [address] 11/20/2025 10:30 AM CDT Virtual Visit [address] [address] Marquise Hanley MD [address] [place] [address] 671345 documented as of this encounter Goals Goal [...] Total Score: 9 06/14/20 23 7:18 AM CASH APPLICATIONS CLERK documented as of this encounter Care Teams Ophthalmic Dispenser Relationship Specialty Start Date End Date Rio Jaquez MD [address] [place] [address]10 PCP - General Family Practice 12/02/10 07/13/24 Omar Carmona MD [address] [place] [address] 49870 PCP - General Family Medicine 07/14/24 Barry Kilpatrick MD [address] [place] [address] [id number] [place], [place] 890275 Neurology 07/19/14 Michelle Henderson I, TANIA Nurse Coordinator Neurology 07/19/14 Rio Jaquez MD [address] [place] [address] [phone] Family Practice 10/15/14 Jemima Jaramillo MD credit consultant 11/20/14 Kelley Chin, TANIA [address] 727235 Nurse Coordinator Cardiology 11/04/15 Sydnee Saleem MD 420 [facility] 508 [place], [place] 094535 Cardiology 11/04/15 Karlene Moya MD 516 [place], [place] 356015 MD Ophthalmology 06/24/17 Wilbert Quintero, OD 909 [place], [place] 832345 Optometry 06/24/17 Rod Gauthier DPM 909 [place], [place] 331995 Pearl Technician Primary Podiatric Medicine 06/21/18 Jan Mahmood MD 6 [facility] 2A [place], [place] 118685 MD Gastroenterology 11/05/20 Brandt Quintana MD [facility]4 [place] [address] Resident 11/05/20 Jan Mahmood MD 6 [facility] 2A [place], [place] 806335 Assigned Gastroenterology Provider 12/01/20 Rio Jaquez MD 909 [facility] 4 [place], [place] 634915 Assigned PCP 11/17/20 09/30/24 Dom Eason MD 717 [facility] 353 [place], [place] 863264 Internal Medicine 12/02/20 Jayla Plaza, RN Specialty Retail Brand Ambassador Hepatology 01/09/21 02/13/24 Jaimie Vernon, TANIA Specialty Retail Brand Ambassador Cardiology 10/28/21 Marquise Hanley MD [address] [place] [address] Endocrinology, Diabetes, and Metabolism 03/05/22 Vlad Ramey MD [address] [place] [address] 29238 Cardiovascular Disease 05/07/22 Joesph Crowe MD [address] [place] [address] 16453 Surgery 05/07/22 Michelle Padilla RN Specialty Retail Brand Ambassador Cardiology 07/03/22 Marquise Hanley MD [address] [place] [address] 953[address] Assigned Endocrinology Provider 08/15/22 Wagner Oliver MD [address] [place] [address] Critical Care 12/15/22 Laura Epperson NP [address] [place] [address] 1932 [place] [address] Assigned Nephrology Provider 02/20/23 08/30/24 Joesph Crowe MD [address] [place] [address] 11344 Surgery 03/17/23 Joesph Crowe MD [address] [place] [address] 10244 Assigned Surgical Provider 04/03/23 09/30/24 Adonay Haq MD [address] [place] [address] 16455 Internal Medicine 06/14/23October, Denilson Jackson MD 6405 [facility] [address] [place], [place] 714695 Assigned Heart and Vascular Provider 05/29/23 11/28/24 Jason Alvares MD [address] [place] [address] 226115 Assigned Neuroscience Provider 05/15/23 11/28/24 Ruth Riddle DPM, Podiatry/Foot and Ankle Surgery [address] [place] [place] [address] 572947 Assigned Musculoskeletal Provider 10/22/23 Jignesh Mathias MD [address] [place] [address] 57111 Gastroenterology 09/25/24 Adonay Haq MD [address] [place] [address] 291905 Assigned PCP 10/01/24 12/28/24 Omar Carmona MD [address] [place] [address] 88005 Assigned PCP 12/29/24 Jason Alvares MD 420 [facility] 295 [place] [address] Assigned Neuroscience Provider 12/29/24 Jignesh Mathias MD [address] [place] [address] 889865 Assigned Surgical Provider 12/29/24 Ayad Lopez, PhD LP 516 [place], [place] 841155 Assigned Behavioral Health Provider 02/28/25 Gavi Nieto, PANavinC [address] [place] [address] 862485 Physician Mill Labor Supervisor Dermatology 03/19/25 documented as of this encounter
--- OUTSIDE RECORDS SUMMARY | 2025-06-08 22:57 | XMS_ITS | Encounter Summary ---
Author Organization [facility] Address [address] [place] [address] 31398 Care Team Providers Care Mission Worker Name Role Phone Rio Jaquez MD Primary Care Provider Barry Kilpatrick MD Unavailable Michelle Henderson RN Unavailable [phone] Rio Jaquez MD Unavailable [phone] Jemima Jaramillo MD Unavailable Unavai Kelley Bautista RN Unavailable [phone] Sydnee Saleem MD Unavailable [phone] Karlene Moya MD Unavailable [phone] Wilbert Quintero OD Unavailable [phone] Rod Gauthier DPM Unavailable [phone] Nallely Hogue RN Unavailable Unavailable Larisa Vargas RN Unavailable Unavailable Francisco Lott MD Unavailable +[phone] Greg Ortega MD Unavailable [phone] Jan Mahmood MD Unavailable [phone] Brandt Quintana MD Unavailable [phone] Jan Mahmood MD Unavailable Rio Jaquez MD Unavailable Dom Eason MD Unavailable [phone] Jayla Plaza RN Unavailable Jayla Plaza RN Unavailable Sydnee Saleem MD Unavailable Phan Coello MD Unavailable Unavailable Cristian Barragan MD Unavailable Dom Eason MD Unavailable [phone] Jaimie Vernon RN Unavailable Unavailable Ruth Riddle DPM, Podiatry /Foot and Ankle Surgery Unavailable Luis Arrington MD Unavailable Jason Alvares MD Unavailable Marquise Hanley MD Unavailable Vlad Ramey MD Unavailable Joesph Crowe MD Unavailable Luis Arrington MD Unavailable Michelle Padilla RN Unavailable Unavaila ble Vlad Ramey MD Unavailable Marquise Hanley MD Unavailable Dom Eason MD Unavailable Wagner Oliver MD Unavailable [phone] Laura Epperson NP Unavailable [phone] Thom Taveras MD Unavailable Joesph Crowe MD Unavailable Joesph Crowe MD Unavailable Adonay Haq MD Unavailable OctoberDenilson MD Unavailable +[phone] Jason Alvares MD Unavailable Ruth Riddle DPM, Podiatry /Foot and Ankle Surgery Unavailable Omar Carmona MD Primary Care Provider Jignesh Mathias MD Unavailable Adonay Haq MD Unavailable [phone] Omar Carmona MD Unavailable [phone] Jason Alvares MD Unavailable Jignesh Mathias MD Unavailable Ayad Lopez PhD LP Unavailable [phone] Gavi Nieto PA-C Unavailable [phone] Encounter Details Date Type Department Care Team (Late st Contact Info) Description 12/04/2020 [facility] Medical Advice [facility] Interventional Radiology [address] [place] [phone] Laura Lea, RN Social History Tobacco Use [...] Sex Assigned at Female 09/12/2020 12:05 PM CONVEYOR TENDER CONCRETE MIXING PLANT Legal Sex Female 3:26 AM CONVEYOR TENDER CONCRETE [employer] PLANT Gender Identity Female 09/12/2020 12:05 PM CONVEYOR TENDER CONCRETE [employer]ANT Sexual Orientation Straight 12/19/2021 10 :44 AM [...] st Contact Info) Description 06/13/2025 6:00 PM CONVEYOR TENDER CONCRETE M[employer] PLANT Ancillary Procedure [facility] [address] [phone] Omar Carmona MD [address] [place] [address] 879415 06/14/2025 4:00 PM CONVEYOR TENDER CONCR[employer]E [employer]ANT Office Visit [facility] [address] [phone] Omar Carmona MD [address] [place] [address] 485855 06/15/2025 12:45 PM CONVEYOR TENDER CONCRETE [employer]ANT Therapy Visit [facility] [address] [place] [address] Jason Alvares MD [address] [phone] Chaya Castillo, OTR [facility] 150 [place], [place] 580567 06/19/2025 10:30 AM CONVEYOR TENDER CONCRETE [employer]ANT Virtual Visit [facility] [address] [address] Omar Carmona MD [address] [place] [address] [phone] Gerson Santos RPH 06/26/2025 11:00 AM CONVEYOR TENDER [employer]ANT Therapy Visit [facility] 150 [place] [address] Jason Alvares MD [address] [place] [address] Chaya Castillo, OTR [address] [address] 07/09/2025 12:45 PM CONVEYOR TENDER CONCR[employer]E [employer]ANT Therapy Visit [facility] [address] [phone] Jason Alvares MD [address] [place] [address] Chaya Castillo, OTR [address] [address] 07/18/2025 3:00 PM CONVEYOR TENDER [employer]CR[employer]ANT Office Visit [facility] Heart [address] [phone] Adonay Chapman APRN [facility] 500 [place] [address] 11/05/2025 12:30 PM CDT Lab [facility] [address]st [place] [phone] 11/05/2025 1:45 PM CDT Office Visit [facility] [address]rd [place] [phone] Gavi Nieto PA-C Dermatology [address] [place] [address] 11/20/2025 10:30 AM CDT Virtual Visit [address] [phone] Marquise Hanley MD [address] [place] [address] 97159 documented as of this encounter Goals Goal [...] Depression Total Score: 12 021 9:43 AM CONVEYOR TENDER CONCR[employer]E [employer]ANT documented as of this encounter Care Teams Mission Worker Relationship Specialty Start Date End Date Rio Jaquez MD [address] [place] [address] 10021 PCP - General Family Practice 12/02/10 07/13/24 Omar Carmona MD [address] [place] [address] 11741 PCP - General Family Medicine 07/14/24 Barry Kilpatrick MD [address] [place] [address] [id number] [place] [address] Neurology 07/19/14 Michelle Henderson I, RN Nurse Coordinator Neurology 07/19/14 Rio Jaquez MD [address] [place] [address] 7[address]39 Family Practice 10/15/14 Jemima Jaramillo MD head batcher 11/20/14 Kelley Chin, TANIA [address] 817145 Nurse Coordinator Cardiology 11/04/15 Sydnee Saleem MD [address] [place] [address] 508 [place] [address] Cardiology 11/04/15 Karlene Moya MD [address] [place] [address] 764795 Ophthalmology 06/24/17 Wilbert Quintero OD [address] [place] [address] [phone] Optometry 06/24/17 Rod Gauthier DPM [address] [place] [address] 045185 Software Quality Specialist Primary Podiatric Medicine 06/21/18 Nallely Hogue, RN Registered Nurse 02/20/19 11/23/22 Larisa Vargas, TANIA Specialty Septic Tank Servicer Cardiology 04/18/19 03/06/22 Francisco Lott MD [address] [place] [address] 88 [place], [place] [phone] Assigned Rheumatology Provider 05/31/20 12/13/21 Greg Ortega MD [address] [place] [address] [phone] Assigned Surgical Provider 06/23/20 12/06/21 Jan Mahmood MD [address] [place] [address] Gastroenterology 11/05/20 Brandt Quintana MD 14[address] [place] [address] Resident 11/05/20 Jan Mahmood MD 516 [facility] [place] [address] Assigned Gastroenterology Provider 12/01/20 Rio Jaquez MD 909 [facility] 4 [place], [place] 082255 Assigned PCP 11/17/20 09/30/24 Dom Eason MD 717 [facility] 353 [place], [place] 757304 Internal Medicine 12/02/20 Jayla Plaza, RN Specialty Septic Tank Servicer Hepatology 01/09/21 02/13/24 Jayla Plaza, RN Specialty Septic Tank Servicer Hepatology 01/10/21 01/10/21 Sydnee Saleem MD [address] [place] [address] [phone] Assigned Heart and Vascular Provider 02/02/21 07/24/22 hPan Coello MD Assigned Neuroscience Provider 02/21/21 11/22/21 Cristian Barragan MD [address] [place] [address] Assigned Infectious Disease Provider 02/21/21 03/06/22 Dom Eason MD 717 [facility] 353 [place] [address] Assigned Nephrology Provider 04/20/21 01/02/22 Jaimie Vernon, RN Specialty Septic Tank Servicer Cardiology 10/28/21 Ruth Riddle, DPM, Podiatry/Foot and Ankle Surgery 09198 [facility] 300 [place] [address] Assigned Musculoskeletal Provider 11/30/21 09/30/23 Luis Arrington MD [address] [place] [address] 82237 Assigned Neuroscience Provider 11/23/21 01/02/22 Jason Alvares MD [address] [place] [address] 295 [place] [address] Assigned Neuroscience Provider 01/03/22 05/15/22 Marquise Hanley MD [address] [place] [address] 61519 Endocrinology, Diabetes, and Metabolism 03/05/22 Vlad Ramey MD [address] [place] [address] 18779 Cardiovascular Disease 05/07/22 Joesph Crowe MD [address] [place] [address] 71649 Surgery 05/07/22 Luis Arrington MD [address] [place] [address] 53893 Assigned Neuroscience Provider 05/16/22 05/14/23 Michelle Padilla, RN Specialty Septic Tank Servicer Cardiology 07/03/22 Vlad Ramey MD 9 [place] [address] Assigned Heart and Vascular Provider 07/25/22 05/28/23 Marquise Hanley MD [address] [place] [address] 38370 Assigned Endocrinology Provider 08/15/22 Dom Eason MD 717 [facility] 353 [place] [address] Assigned Nephrology Provider 11/28/22 02/19/23 Wagner Oliver MD [address] [place] [address] Critical Care 12/15/22 Laura Epperson, GRAIN ELEVATOR WORKER 717 [facility] [address] [place] [address] Assigned Nephrology Provider 02/20/23 08/30/24 Thom Taveras MD [address], [address] [place] [address] Assigned Cancer Care Provider 02/06/23 08/20/23 Joesph Crowe MD [address] [place] [address] 55654 Surgery 03/17/23 Joesph Crowe MD 9 [place] [address] Assigned Surgical Provider 04/03/23 09/30/24 Adonay Haq MD [address] [place] [address] 35428 Internal Medicine 06/14/23October, Denilson Jackson MD [address] [facility] [address] [place] [address] Assigned Heart and Vascular Provider 05/29/23 11/28/24 Jason Alvares MD [address] [place] [address] 295 [place], [place] 547235 Assigned Neuroscience Provider 05/15/23 11/28/24 Ruth Riddle DPM, Podiatry/Foot and Ankle Surgery 83937 [facility] 300 [place], [place] 039767 Assigned Musculoskeletal Provider 10/22/23 Jignesh Mathias MD [address] [place] [address] 70829 Gastroenterology 09/25/24 Adonay Haq MD [address] [place] [address] 59751 Assigned PCP 10/01/24 12/28/24 Omar Carmona MD [address] [place] [address] 01469 Assigned PCP 12/29/24 Jason Alvares MD 420 [facility] 295 [place], [place] 769155 Assigned Neuroscience Provider 12/29/24 Jignesh Mathias MD [address] [place] [address] 000895 Assigned Surgical Provider 12/29/24 Ayad Lopez, PhD LP [address] [place] [address] [id number] Assigned Behavioral Health Provider 02/28/25 Gavi Nieto PANavinC [address] [place] [address] 840495 Physician Nurse Transitional Dermatology 03/19/25 documented as of this encounter
--- OUTSIDE RECORDS SUMMARY | 2025-06-08 22:57 | XMS_ITS | Encounter Summary ---
Author Organization [facility] Address [address] [place] [address] 85463 Care Team Providers Care Car Salesperson Name Role Phone Rio Jaquez MD Primary Care Provider Barry Kilpatrick MD Unavailable Michelle Henderson I RN Unavailable [phone] Rio Jaquez MD Unavailable [phone] Jemima Jaramillo MD Unavailable Unavai Kelley Bautista RN Unavailable [phone] Sydnee Saleem MD Unavailable [phone] Karlene Moya MD Unavailable Wilbert Quintero OD Unavailable [phone] Rod Gauthier DPM Unavailable [phone] Jan Mahmood MD Unavailable [phone] Brandt Quintana MD Unavailable Jan Mahmood MD Unavailable [phone] Rio Jaquez MD Unavailable [phone] Dom Eason MD Unavailable Jayla Plaza RN Unavailable +[phone] Jaimie Vernon RN Unavailable Unavailable Marquise Hanley MD Unavailable +[phone] Vlad Ramey MD Unavailable +[phone] Joesph Crowe MD Unavailable + [phone] Michelle Padilla RN Unavailable Unavaila ble Marquise Hanley MD Unavailable +[phone] Wagner Oliver MD Unavailable [phone] Laura Epperson NP Unavailable + [phone] Joesph Crowe MD Unavailable [phone] Joesph Crowe MD Unavailable + [phone] Adoany Haq MD Unavailable [phone] Denilson Srinivasan MD Unavailable + [phone] Jason Alvares MD Unavailable Ruth Riddle DPM, Podiatry /Foot and Ankle Surgery Unavailable Omar Carmona MD Primary Care Provider [phone] Jignesh Mathias MD Unavailable Adonay Haq MD Unavailable [phone] Omar Carmona MD Unavailable [phone] Jason Alvares MD Unavailable Jignesh Mathias MD Unavailable Ayad Lopez PhD LP Unavailable [phone] Gavi Nieto PA-C Unavailable [phone] Encounter Details Date Type Department Care Team (Late st Contact Info) Description 11/09/2023 [facility] Hepatology [address] [phone] Jan Mahmood MD 6 [facility] 2A [place] [address] Social History Tobacco Use Types Packs/Day Years [...] than three times a week 08/27/2021 Attends [employer] Not on file 08/27 Do you [...] Answer Date Recorded PHQ-2 Score 2 08/26/2023 [facility] [...] Assigned at Female 09/12/2020 12:05 PM ELECTRONICS WARFARE TECHNICIAN Legal Sex Female 3:26 AM ELECTRONICS WARFARE TECHNICIAN Gender Identity Female 09/12/2020 12:05 PM ELECTRONICS WARFARE TECHNICIAN Sexual Orientation Straight 12/19/2021 10 :44 [...] Contact Info) Description 06/13/2025 6:00 PM ELECTRONICS WARFARE TECHNICIAN Ancillary Procedure [address] [address] Omar Carmona MD [address] [place] [address] 948375 06/14/2025 4:00 PM ELECTRONICS WARFARE TECHNICIAN Office Visit [facility] Primary Care [address] [phone] Omar Carmona MD [address] [place] [address] 349395 06/15/2025 12:45 PM ELECTRONICS WARFARE TECHNICIAN Therapy Visit [facility] 150 [place] [phone] Jason Alvares MD [address] [place] [address] 123215 Chaya Castillo, OTR [facility] 150 [place], [place] 193097 06/19/2025 10:30 AM ELECTRONICS WARFARE TECHNICIAN Virtual Visit [facility] Care [address] [phone] Omar Carmona MD [address] [place] [address] 018955 Gerson Santos [facility] 06/26/2025 11:00 AM ELECTRONICS WARFARE TECHNICIAN Therapy Visit [facility] [address] [place] [phone] Jason Alvares MD [address] [place] [address] 342935 Chaya Castillo, OTR [facility] 150 [place] [address] 07/09/2025 12:45 PM ELECTRONICS WARFARE TECHNICIAN Therapy Visit [facility] 150 [place] [phone] Jason Alvares MD 420 [facility] 295 [place] [address] Chaya Castillo, OTR [facility] 150 [place] [address] 07/18/2025 3:00 PM ELECTRONICS WARFARE TECHNICIAN Office Visit [facility] Heart [address] [phone] Adonay Chapman APRN [facility] 500 [place] [address] 11/05/2025 12:30 PM CDT Lab [facility] Lab [address]st [place] [phone] 11/05/2025 1:45 PM CDT Office Visit [facility] Dermatology [address] 3rd [place] [phone] Gavi Nieto PANavinC Dermatology [address] [place] [address] 11/20/2025 10:30 AM CDT Virtual Visit [address] [address] Marquise Hanley MD [address] [place] [address] [phone] documented as of this encounter Goals Goal [...] Total Score: 9 06/14/20 23 7:18 AM ELECTRONICS WARFARE TECHNICIAN documented as of this encounter Care Teams Car Salesperson Relationship Specialty Start Date End Date Rio Jaquez MD [address] [place] [address] 86754 PCP - General Family Practice 12/02/10 07/13/24 Omar Carmona MD [address] [place] [address] 88806 PCP - General Family Medicine 07/14/24 Barry Kilpatrick MD [address] [place] [address] [id number] [place], [place] 840365 Neurology 07/19/14 Michelle Henderson I, TANIA Nurse Coordinator Neurology 07/19/14 Rio Jaquez MD [address] [place] [address] 779585 Family Practice 10/15/14 Jemima Jaramillo MD blood bank supervisor 11/20/14 Kelley Chin, TANIA [address] 657835 Nurse Coordinator Cardiology 11/04/15 Sydnee aSleem MD 420 [facility] 508 [place], [place] 986515 Cardiology 11/04/15 Karlene Moya MD 516 [place], [place] 164405 MD Ophthalmology 06/24/17 Wilbert Quintero, OD 909 [place], [place] 431435 Optometry 06/24/17 Rod Gauthier DPM 909 [place], [place] 499645 Idea Worker Primary Podiatric Medicine 06/21/18 Jan Mahmood MD 6 [facility] 2A [place], [place] 094895 MD Gastroenterology 11/05/20 Brandt Quintana MD [facility]4 [place] [address] Resident 11/05/20 Jan Mahmood MD 6 [facility] 2A [place], [place] 128875 Assigned Gastroenterology Provider 12/01/20 Rio Jaquez MD 909 [facility] 4 [place], [place] 471555 Assigned PCP 11/17/20 09/30/24 Dom Eason MD 717 [facility]EL 353 [place], [place] 897964 Internal Medicine 12/02/20 Jayla Plaza, RN Specialty Power Transformer Repair Supervisor Hepatology 01/09/21 02/13/24 Jaimie Vernon, TANIA Specialty Power Transformer Repair Supervisor Cardiology 10/28/21 Marquise Hanley MD [address] [place] [address] 14052 Endocrinology, Diabetes, and Metabolism 03/05/22 Vlad Ramey MD [address] [place] [address] 61966 Cardiovascular Disease 05/07/22 Joesph Crowe MD [address] [place] [address] 68408 Surgery 05/07/22 Michelle Padilla RN Specialty Power Transformer Repair Supervisor Cardiology 07/03/22 Marquise Hanley MD [address] [place] [address] 99989 Assigned Endocrinology Provider 08/15/22 Wagner Oliver MD [address] [place] [address] Critical Care 12/15/22 Laura Epperson NP [address] [place] [address] 1932 [place] [address] Assigned Nephrology Provider 02/20/23 08/30/24 Joesph Crowe MD [address] [place] [address] 99852 Surgery 03/17/23 Joesph Crowe MD [address] [place] [address] 32154 Assigned Surgical Provider 04/03/23 09/30/24 Adonay Haq MD [address] [place] [address] 09174 Internal Medicine 06/14/23October, Denilson Jackson MD 6405 [facility] [address] [place], [place] 658345 Assigned Heart and Vascular Provider 05/29/23 11/28/24 Jason Alvares MD [address] [place] [address] 723205 Assigned Neuroscience Provider 05/15/23 11/28/24 Ruth Riddle DPM, Podiatry/Foot and Ankle Surgery [address] RODRIGUEZ [address] [place] [address] 902257 Assigned Musculoskeletal Provider 10/22/23 Jignesh Mathias MD [address] [place] [address] 44038 Gastroenterology 09/25/24 Adonay Haq MD [address] [place] [address] 280425 Assigned PCP 10/01/24 12/28/24 Omar Carmona MD [address] [place] [address] 10992 Assigned PCP 12/29/24 Jason Alvares MD 420 [facility] 295 [place] [address] Assigned Neuroscience Provider 12/29/24 Jignesh Mathias MD [address] [place] [address] 694605 Assigned Surgical Provider 12/29/24 Ayad Lopez, PhD LP 516 [place], [place] 099855 Assigned Behavioral Health Provider 02/28/25 Gavi Nieto, PANavinC [address] [place] [address] 238155 Physician Construction Coordinator Dermatology 03/19/25 documented as of this encounter
--- OUTSIDE RECORDS SUMMARY | 2025-06-08 22:57 | XMS_ITS | Encounter Summary ---
Author Organization [facility] Address [address] [place] [address] Care Team Providers Care [employer] Name Role Phone Rio Jaquez MD Primary Care Provider Barry Kilpatrick MD Unavailable Michelle Henderson I RN Unavailable [phone] Rio Jaquez MD Unavailable +[phone] Jemima Jaramillo MD Unavailable Unavai Kelley Bautista RN Unavailable [phone] Sydnee Saleem MD Unavailable +[phone] Karlene Moya MD Unavailable Wilbert Quintero OD Unavailable +[phone] Rod Gauthier DPM Unavailable Jan Mahmood MD Unavailable +[phone] Brandt Quintana MD Unavailable Jan Mahmood MD Unavailable +[phone] Rio Jaquez MD Unavailable +[phone] Dom Eason MD Unavailable Jayla Plaza RN Unavailable +[phone] Jaimie Vernon RN Unavailable Unavailable Marquise Hanley MD Unavailable +[phone] Vlad Ramey MD Unavailable +[phone] Joesph Crowe MD Unavailable + [phone] Michelle Padilla RN Unavailable Unavaila ble Marquise Hanley MD Unavailable +[phone] Wagner Oliver MD Unavailable +[phone] Laura Epperson NP Unavailable +[phone] Joesph Crowe MD Unavailable +[phone] Joesph Crowe MD Unavailable + [phone] Adonay Haq MD Unavailable [phone] Denilson Srinivasan MD Unavailable + [phone] Jason Alvares MD Unavailable Ruth Riddle DPM, Podiatry /Foot and Ankle Surgery Unavailable Omar Carmona MD Primary Care Provider [phone] Jignesh Mathias MD Unavailable Adonay Haq MD Unavailable [phone] Omar Carmona MD Unavailable +[phone] Jason Alvares MD Unavailable Jignesh Mathias MD Unavailable Ayad Lopez PhD LP Unavailable +[phone] Gavi Nieto PA-C Unavailable [phone] Encounter Details Date Type Department Care Team (Late st Contact Info) Description 10/12/2023 MyC Medical Advice [facility] [place] [address] [facility], [address] [place] [address] Jason Alvares MD [address] [facility] 295 [place] [address] Social History Tobacco Use Types Packs/Day Years [...] Sex Assigned at Female 09/12/2020 12:05 PM ASSET PROTECTION GREETER Legal Sex Female 3:26 AM ASSET PROTECTION GREETER Gender Identity Female 09/12/2020 12:05 PM ASSET PROTECTION GREETER Sexual Orientation Straight 12/19/2021 10 :44 AM CDT Occupation Industry Job Start Date Job End Date on disability for FMS Not on file Not on file Not on file disabled Not on file Not on file Not on file documented as of this encounter Plan of Treatment Upcoming Encounters Date Type Department Care Team (Late st Contact Info) Description 06/13/2025 6:00 PM ASSET PROTECTION GREETER Ancillary Procedure [address] [place] [address] Omar Carmona MD [address] [place] [address] [id number] 06/14/2025 4:00 PM ASSET PROTECTION GREETER Office Visit [facility] Primary Care [address] [phone] Omar Carmona MD [address] [place] [address] 483135 06/15/2025 12:45 PM ASSET PROTECTION GREETER Therapy Visit [facility] [address] [place] [phone] Jason Alvares MD [address] [place] [address] 609445 Chaya Castillo, OTR [facility] [address] [place], [place] 153497 06/19/2025 10:30 AM ASSET PROTECTION GREETER Virtual Visit [facility] [address] [phone] Omar Carmona MD [address] [place] [address] 832925 Gerson Santos [facility] 06/26/2025 11:00 AM ASSET PROTECTION GREETER Therapy [facility] [address] [place] [phone] Jason Alvares MD [address] [place] [address] 095325 Chaya Castillo, OTR [facility] [address] [place], [place] 772817 07/09/2025 12:45 PM ASSET PROTECTION GREETER Therapy Visit [facility] [address] [place] [phone] Jason Alvares MD [address] [facility] [address] [place] [address] Chaya Castillo, OTR [facility] 150 [place] [address] 07/18/2025 3:00 PM ASSET PROTECTION GREETER Office Visit [facility] Heart [address] [phone] Adonay Chapman APRN [facility] [address] [place], [place] 398645 11/05/2025 12:30 PM CDT Lab [facility] Lab [address] [place] [phone] 11/05/2025 1:45 PM CDT Office Visit [facility] Dermatology [address] [place] [phone] Gavi Nieto PANavinC Dermatology [address] [place] [address] 11/20/2025 10:30 AM CDT Virtual Visit [address] [address] Marquise Hanley MD [address] [place] [address] [phone] documented as of this encounter Goals Goal [...] Total Score: 9 06/14/20 23 7:18 AM ASSET PROTECTION GREETER documented as of this encounter Care Teams [employer] Relationship Specialty Start Date End Date Rio Jaquez MD [address] [place] [address] PCP - General Family Practice 12/02/10 07/13/24 Omar Carmona MD [address] [place] [address] 960275 PCP - General Family Medicine 07/14/24 Barry Kilpatrick MD [address] [place] [address] [id number] [place], [place] 339615 Neurology 07/19/14 Michelle Henderson I, TANIA Nurse Coordinator Neurology 07/19/14 Rio Jaquez MD [address] [place] [address] 200495 Family Practice 10/15/14 Jemima Jaramillo MD recharger 11/20/14 Kelley Chin, TANIA [address] 911965 Nurse Coordinator Cardiology 11/04/15 Sydnee Saleem MD [facility] 508 [place], [place] 049175 Cardiology 11/04/15 Karlene Moya MD [address] [place], [place] 159695 Ophthalmology 06/24/17 Wilbert Quintero, OD 9[address] [place], [place] 789855 Optometry 06/24/17 Rod Gauthier DPM 9 [place], [place] 881605 Securities Research Analyst Primary Podiatric Medicine 06/21/18 Jan Mahmood MD 6 [facility] 2A [place], [place] [phone] MD Gastroenterology 11/05/20 Brandt Quintana MD 1414 [place] [address] Resident 11/05/20 Jan Mahmood MD 6 [facility] 2A [place], [place] 141135 Assigned Gastroenterology Provider 12/01/20 Rio Jaquez MD 909 [facility] 4 [place], [place] 141285 Assigned PCP 11/17/20 09/30/24 Dom Eason MD 717 [facility] [address] [place] [address] Internal Medicine 12/02/20 Jayla Plaza, RN Specialty Capability Lead Hepatology 01/09/21 02/13/24 Jaimie Vernon, TANIA Specialty Capability Lead Cardiology 10/28/21 Marquise Hanley MD [address] [place] [address] Endocrinology, Diabetes, and Metabolism 03/05/22 Vlad Ramey MD [address] [place] [address] 22944 Cardiovascular Disease 05/07/22 Joesph Crowe MD [address] [place] [address] 01409 Surgery 05/07/22 Michelle Padilla RN Specialty Capability Lead Cardiology 07/03/22 Marquise Hanley MD [address] [place] [address] 13004 Assigned Endocrinology Provider 08/15/22 Wagner Oliver MD [address] [place] [address] Critical Care 12/15/22 Laura Epperson, LULU [address] [place] [address] 1932 [place] [address] Assigned Nephrology Provider 02/20/23 08/30/24 Joesph Crowe MD [address] [place] [address] 40431 Surgery 03/17/23 Joesph Crowe MD [address] [place] [address] 85522 Assigned Surgical Provider 04/03/23 09/30/24 Adonay Haq MD [address] [place] [address] 38418 Internal Medicine 06/14/23October, Denilson Jackson MD [address] [facility] [address] [place], [place] 027905 Assigned Heart and Vascular Provider 05/29/23 11/28/24 Jason Alvares MD [address] [place] [address] 478225 Assigned Neuroscience Provider 05/15/23 11/28/24 Ruth Riddle DPM, Podiatry/Foot and Ankle Surgery [address] [place] [address] 254487 Assigned Musculoskeletal Provider 10/22/23 Jignesh Mathias MD [address] [place] [address] 08178 Gastroenterology 09/25/24 Adonay Haq MD [address] [place] [address] 772095 Assigned PCP 10/01/24 12/28/24 Omar Carmona MD [address] [place] [address] 959[address] Assigned PCP 12/29/24 Jason Alvares MD [address] [facility] 295 [place] [address] Assigned Neuroscience Provider 12/29/24 Jignesh Mathias MD [address] [place] [address] 371705 Assigned Surgical Provider 12/29/24 Ayad Lopez, PhD LP [address] [place], [place] 725465 Assigned Behavioral Health Provider 02/28/25 Gavi Nieto PANavinC [address] [place] [address] 980305 Physician Steel Unloader Dermatology 03/19/25 documented as of this encounter
--- OUTSIDE RECORDS SUMMARY | 2025-06-08 22:57 | XMS_ITS | Encounter Summary ---
Author Organization [facility] Address [address] [place] [address] Care Team Providers Care Human Services Case Manager Name Role Phone Rio Jaquez MD Primary Care Provider Barry Kilpatrick MD Unavailable Michelle Henderson I RN Unavailable [phone] Rio Jaquez MD Unavailable [phone] Jemima Jaramillo MD Unavailable Unavai Kelley Bautista RN Unavailable [phone] Sydnee Saleem MD Unavailable [phone] Karlene Moya MD Unavailable Wilbert Quintero OD Unavailable +[phone] Rod Gauthier DPM Unavailable [phone] Jan Mahmood MD Unavailable [phone] Brandt Quintana MD Unavailable Jan Mahmood MD Unavailable +[phone] Rio Jaquez MD Unavailable [phone] Dom Eason MD Unavailable Jayla Plaza RN Unavailable +[phone] Jaimie Vernon RN Unavailable Unavailable Marquise Hanley MD Unavailable +[phone] Vlad Ramey MD Unavailable +[phone] Joesph Crowe MD Unavailable + [phone] Michelle Padilla RN Unavailable Unavaila ble Marquise Hanley MD Unavailable +[phone] Wagner Oliver MD Unavailable +[phone] Laura Epperson NP Unavailable + [phone] Joesph Crowe MD Unavailable + [phone] Joesph Crowe MD Unavailable + [phone] Adonay Haq MD Unavailable [phone] Denilson Srinivasan MD Unavailable + [phone] Jason Alvares MD Unavailable Ruth Riddle DPM, Podiatry /Foot and Ankle Surgery Unavailable Omar Carmona MD Primary Care Provider [phone] Jignesh Mathias MD Unavailable Adonay Haq MD Unavailable [phone] Omar Carmona MD Unavailable +[phone] Jason Alvares MD Unavailable Jignesh Mathias MD Unavailable Ayad Lopez PhD LP Unavailable [phone] Gavi Nieto PA-C Unavailable [phone] Encounter Details Date Type Department Care Team (Late st Contact Info) Description 10/04/2023 [facility] Hepatology [address] [address] Jayla Plaza, RN Social History [...] Answer Date Recorded PHQ-2 Score 2 08/26/2023 [facility] Occupational Stress Questionnaire [...] Sex Assigned at Female 09/12/2020 12:05 PM DENTAL FLOSS PACKER Legal Sex Female 3:26 AM DENTAL FLOSS PACKER Gender Identity Female 09/12/2020 12:05 PM DENTAL FLOSS PACKER Sexual Orientation Straight 12/19/2021 10 :44 AM CDT Occupation Industry Job Start Date Job End Date on disability for FMS Not on file Not on file Not on file disabled Not on file Not on file Not on file documented as of this encounter Plan of Treatment Upcoming Encounters Date Type Department Care Team (Late st Contact Info) Description 06/13/2025 6:00 PM DENTAL FLOSS PACKER Ancillary Procedure [facility] [address] [phone] Omar Carmona MD [address] [place] [address] 06/14/2025 4:00 PM DENTAL FLOSS PACKER Office Visit [facility] Primary Care [address] [phone] Omar Carmona MD [address] [place] [address]15 06/15/2025 12:45 PM DENTAL FLOSS PACKER [facility] 150 [place] [phone] Jason Alvares MD [address] [place] [address] Chaya Castillo, OTR [facility] 150 [place], [place] 014157 06/19/2025 10:30 AM DENTAL FLOSS PACKER Virtual Visit [facility] Primary Care [address] [phone] Omar Carmona MD [address] [place] [address] Gerson aSntos [facility] 06/26/2025 11:00 AM DENTAL FLOSS PACKER Therapy [facility] [address] [place] [phone] Jason Alvares MD [address] [place] [address] 421415 Chaya Castillo, OTR [facility] 150 [place] [address] 07/09/2025 12:45 PM DENTAL FLOSS PACKER Therapy [facility] 150 [place] [address]163014 Jason Alvares MD 420 [facility] 295 [place] [address] Chaya Castillo, OTR [facility] 150 [place] [address] 07/18/2025 3:00 PM DENTAL FLOSS PACKER Office Visit [facility] Heart [address] [phone] Adonay Chapman APRN [facility] 500 [place], [place] 101315 11/05/2025 12:30 PM CDT Lab [facility] Lab [address]st [place] [phone] 11/05/2025 1:45 PM CDT Office Visit [facility] Dermatology [address] [phone] Gavi Nieto PA-C Dermatology [address] [place] [address] 11/20/2025 10:30 AM CDT Virtual Visit [address] [address] Marquise Hanley MD [address] [place] [address] documented as of this encounter Goals Goal [...] Total Score: 9 06/14/20 23 7:18 AM DENTAL FLOSS PACKER documented as of this encounter Care Teams Human Services Case Manager Relationship Specialty Start Date End Date Rio Jaquez MD [address] [place] [address] 34697 PCP - General Family Practice 12/02/10 07/13/24 Omar Carmona MD [address] [place] [address] [phone] PCP - General Family Medicine 07/14/24 Barry Kilpatrick MD [address] [place] [address] [id number] [place], [place] 416525 Neurology 07/19/14 Michelle Henderson I, RN Nurse Coordinator Neurology 07/19/14 Rio Jaquez MD [address] [place] [address] 936105 Family Practice 10/15/14 Jemima Jaramillo MD transplant surgeon 11/20/14 Kelley Chin, TANIA [address] 612995 Nurse Coordinator Cardiology 11/04/15 Sydnee Saleem MD [address] [place] [address] 508 [place] [address] Cardiology 11/04/15 Karlene Moya MD 6 [place] [address] Ophthalmology 06/24/17 Wilbert Quintero OD [address] [place] [address] 67830 Optometry 06/24/17 Rod Gauthier DPM [address] [place] [address] 30482 Diet Tech Primary Podiatric Medicine 06/21/18 Jan Mahmood MD [address] [place] [address] 28054 Gastroenterology 11/05/20 Brandt Quintana MD [address] [place] [address] Resident 11/05/20 Jan Mahmood MD [address] [place] [address]8511 Assigned Gastroenterology Provider 12/01/20 Rio Jaquez MD [address] [place] [address] 4 [place] [address] Assigned PCP 11/17/20 09/30/24 Dom Eason MD 717 [facility] 353 [place] [address] Internal Medicine 12/02/20 Jayla Plaza, RN Specialty Sales Operations Associate Hepatology 01/09/21 02/13/24 Jaimie Vernon, RN Specialty Sales Operations Associate Cardiology 10/28/21 Marquise Hanley MD [address] [place] [address] 88905 Endocrinology, Diabetes, and Metabolism 03/05/22 Vlad Ramey MD [address] [place] [address] 82106 Cardiovascular Disease 05/07/22 Joesph Crowe MD [address] [place] [address] 62737 MD Surgery 05/07/22 Michelle Padilla RN Specialty Sales Operations Associate Cardiology 07/03/22 Marquise Hanley MD [address] [place] [address] 07295 Assigned Endocrinology Provider 08/15/22 Wagner Oliver MD [address] [facility] [address] Critical Care 12/15/22 Laura Epperson NP [address] [place] [address] 1932 [place] [address] Assigned Nephrology Provider 02/20/23 08/30/24 Joesph Crowe MD [address] [place] [address] 38623 Surgery 03/17/23 Joesph Crowe MD [address] [place] [address] 67123 Assigned Surgical Provider 04/03/23 09/30/24 Adonay Haq MD [address] [place] [address]44 Internal Medicine 06/14/23OctoberDenilson MD [address] [facility] [address] [place] [address] Assigned Heart and Vascular Provider 05/29/23 11/28/24 Jason Alvares MD [address] [place] [address] Assigned Neuroscience Provider 05/15/23 11/28/24 Ruth Riddle DPM, Podiatry/Foot and Ankle Surgery [address] [place] [address] Assigned Musculoskeletal Provider 10/22/23 Jignesh Mathias MD [address] [place] [address]95 Gastroenterology 09/25/24 Adonay Haq MD [address] [place] [address]387 Assigned PCP 10/01/24 12/28/24 Omar Carmona MD [address] [place] [address] 09341 Assigned PCP 12/29/24 Jason Alvares MD [address] [place] [address] 478085 Assigned Neuroscience Provider 12/29/24 Jignesh Mathias MD [address] [place] [address] 27929 Assigned Surgical Provider 12/29/24 Ayad Lopez, PhD LP [address] [place] [address] 775235 Assigned Behavioral Health Provider 02/28/25 Gavi Nieto, PANavinC [address] [place], [place] 379655 Physician Client Renewal Specialist Dermatology 03/19/25 documented as of this encounter
--- OUTSIDE RECORDS SUMMARY | 2025-06-08 22:57 | XMS_ITS | Encounter Summary ---
Author Organization [facility] Address [address] [place] [address] 36557 Care Team Providers Care Regulatory Auditor Name Role Phone Rio Jaquez MD Primary Care Provider Barry Kilpatrick MD Unavailable Michelle Henderson I RN Unavailable [phone] Rio Jaquez MD Unavailable +[phone] Jemima Jaramillo MD Unavailable Unavai Kelley Bautista RN Unavailable [phone] Sydnee Saleem MD Unavailable +[phone] Karlene Moya MD Unavailable Wilbert Quintero OD Unavailable +[phone] Rod Gauthier DPM Unavailable Jan Mahmood MD Unavailable +[phone] Brandt Quintana MD Unavailable [phone] Jan Mahmood MD Unavailable +[phone] Rio Jaquez MD Unavailable [phone] Dom Eason MD Unavailable Jayla Plaza RN Unavailable +[phone] Jaimie Vernon RN Unavailable Unavailable Marquise Hanley MD Unavailable +[phone] Vlad Ramey MD Unavailable +[phone] Joesph Crowe MD Unavailable + [phone] Michelle Padilla RN Unavailable Unavaila ble Marquise Hanley MD Unavailable +-[phone] Wagner Oliver MD Unavailable +[phone] Laura Epperson NP Unavailable + [phone] Joesph Crowe MD Unavailable +[phone] Joesph Crowe MD Unavailable + [phone] Adonay Haq MD Unavailable [phone] Denilson Srinivasan MD Unavailable + [phone] Jason Alvares MD Unavailable Ruth Riddle DPM, Podiatry /Foot and Ankle Surgery Unavailable Omar Carmona MD Primary Care Provider [phone] Jignesh Mathias MD Unavailable Adonay Haq MD Unavailable [phone] Omar Carmona MD Unavailable +[phone] Jason Alvares MD Unavailable Jingesh Mathias MD Unavailable Ayad Lopez PhD LP Unavailable +[phone] Gavi Nieto PA-C Unavailable [phone] Encounter Details Date Type Department Care Team (Late st Contact Info) Description 10/14/2023 [facility] Hepatology [address] [address] Jan Mahmood MD 6 [facility] 2A [place] [address] Social History Tobacco Use Types Packs/Day Years [...] Answer Date Recorded PHQ-2 Score 2 08/26/2023 [facility] - Occupational Stress Questionnaire [...] Assigned at Female 09/12/2020 12:05 PM SUPERVISOR PRINTING AND STAMPING Legal Sex Female 3:26 AM SUPERVISOR PRINTING [employer] STAMPING Gender Identity Female 09/12/2020 12:05 PM SUPERVISOR PRINTING [employer] STAMPING Sexual Orientation Straight 12/19/2021 10 :44 AM CDT Occupation Industry Job Start Date Job End Date on disability for FMS Not on file Not on file Not on file disabled Not on file Not on file Not on file documented as of this encounter Plan of Treatment Upcoming Encounters Date Type Department Care Team (Late st Contact Info) Description 06/13/2025 6:00 PM SUPERVISOR [employer]INTING [employer] STAMPING Ancillary Procedure [address] [address] Omar Carmona MD [address] [place] [address] 535625 06/14/2025 4:00 PM SUPERVISOR [employer]INTING [employer]ING Office Visit [facility] [address] [phone] Omar Carmona MD [address] [place] [address] 497225 06/15/2025 12:45 PM SUPERVISOR [employer]INTING [employer]AMPING Therapy Visit [facility] [address] [place] [phone] Jason Alvares MD [address] [place] [address] 974685 Chaya Castillo, OTR [facility] 150 [place], [place] 628147 06/19/2025 10:30 AM SUPERVISOR PRINTING [employer] STAMPING Virtual Visit [facility] Care [address] [phone] Omar Carmona MD [address] [place] [address] [phone] Gerson Santos [facility] 06/26/2025 11:00 AM SUPERVISOR [employer]INTING [employer] STAMPING [facility] [address] [place] [phone] Jason Alvares MD [address] [place] [address] 930395 Chaya Castillo, OTR [facility] 150 [place] [address] 07/09/2025 12:45 PM SUPERVISOR [employer]INTING [employer] STAMPING Therapy Visit [facility] 150 [place] [phone] Jason Alvares MD 420 [facility] 295 [place] [address] Chaya Castillo, OTR [facility] 150 [place] [address] 07/18/2025 3:00 PM SUPERVISOR [employer]INTING [employer]AMPING Office Visit [facility] Heart [address] [phone] Adonay Chapman APRN [facility] 500 [place] [address] 11/05/2025 12:30 PM CDT Lab [facility] [address] 1st [place] [phone] 11/05/2025 1:45 PM CDT Office Visit [facility] Dermatology [address]rd [place] [phone] Gavi Nieto PANavinC Dermatology [address] [place] [address] 11/20/2025 10:30 AM CDT Virtual Visit [address] [address] Marquise Hanley MD [address] [place] [address] [phone] documented as of this encounter Goals Goal [...] Score: 9 06/14/20 23 7:18 AM SUPERVISOR PRINTING [employer] STAMPING documented as of this encounter Care Teams Regulatory Auditor Relationship Specialty Start Date End Date Rio Jaquez MD [address] [place] [address]74 PCP - General Family Practice 12/02/10 07/13/24 Omar Carmona MD [address] [place] [address] 81231 PCP - General Family Medicine 07/14/24 Barry Kilpatrick MD [address] [place] [address] [id number] [place], [place] 587685 Neurology 07/19/14 Michelle Henderson I, TANIA Nurse Coordinator Neurology 07/19/14 Rio Jaquez MD [address] [place] [address] 589015 Family Practice 10/15/14 Jemima Jaramillo MD contract design agent 11/20/14 Kelley Chin, TANIA [address] 670385 Nurse Coordinator Cardiology 11/04/15 Sydnee Saleem MD 420 [facility] 508 [place], [place] 779635 Cardiology 11/04/15 Karlene Moya MD 516 [place], [place] 103745 MD Ophthalmology 06/24/17 Wilbert Quintero, OD 909 [place], [place] 146435 Optometry 06/24/17 Rod Gauthier DPM 909 [place], [place] 548345 Corporate Job Titles Primary Podiatric Medicine 06/21/18 Jan Mahmood MD 6 [facility] 2A [place], [place] 825015 MD Gastroenterology 11/05/20 Brandt Quintana MD [facility]4 [place] [address] Resident 11/05/20 Jan Mahmood MD 6 [facility] 2A [place], [place] 954525 Assigned Gastroenterology Provider 12/01/20 Rio Jaquez MD 909 [facility] 4 [place], [place] 768755 Assigned PCP 11/17/20 09/30/24 Dom Eason MD 717 [facility] 353 [place], [place] 276274 Internal Medicine 12/02/20 Jayla Plaza, RN Specialty Tiler Hepatology 01/09/21 02/13/24 Jaimie Vernon, TANIA Specialty Tiler Cardiology 10/28/21 Marquise Hanley MD [address] [place] [address] 28966 Endocrinology, Diabetes, and Metabolism 03/05/22 Vlad Ramey MD [address] [place] [address] 65124 Cardiovascular Disease 05/07/22 Joesph Crowe MD [address] [place] [address] 07228 Surgery 05/07/22 Michelle Padilla RN Specialty Tiler Cardiology 07/03/22 Marquise Hanley MD [address] [place] [address] 35026 Assigned Endocrinology Provider 08/15/22 Wagner Oliver MD [address] [place] [address] Critical Care 12/15/22 Laura Epperson NP [address] [place] [address] 1932 [place] [address] Assigned Nephrology Provider 02/20/23 08/30/24 Joesph Crowe MD [address] [place] [address] 09373 Surgery 03/17/23 Joesph Crowe MD [address] [place] [address] 38619 Assigned Surgical Provider 04/03/23 09/30/24 Adonay Haq MD [address] [place] [address] 50827 Internal Medicine 06/14/23October, Denilson Jackson MD 6405 [facility] [address] [place], [place] 134015 Assigned Heart and Vascular Provider 05/29/23 11/28/24 Jason Alvares MD [address] [place] [address] 291375 Assigned Neuroscience Provider 05/15/23 11/28/24 Ruth Riddle DPM, Podiatry/Foot and Ankle Surgery [address] [place] [address] [place] [address] 817717 Assigned Musculoskeletal Provider 10/22/23 Jignesh Mathias MD [address] [place] [address] Gastroenterology 09/25/24 Adonay Haq MD [address] [place] [address] 428935 Assigned PCP 10/01/24 12/28/24 Omar Carmona MD [address] [place] [address] 87121 Assigned PCP 12/29/24 Jason Alvares MD 420 [facility] 295 [place] [address] Assigned Neuroscience Provider 12/29/24 Jignesh Mathias MD [address] [place] [address] 688985 Assigned Surgical Provider 12/29/24 Ayad Lopez, PhD LP 516 [place], [place] 503795 Assigned Behavioral Health Provider 02/28/25 Gavi Nieto, PANavinC [address] [place] [address] 785795 Physician Social Security Specialist Dermatology 03/19/25 documented as of this encounter
--- OUTSIDE RECORDS SUMMARY | 2025-06-08 22:57 | XMS_ITS | Encounter Summary ---
Author Organization [facility] Address [address] [place] [address] Care Team Providers Care Real Estate Sales Manager Name Role Phone Rio Jaquez MD Primary Care Provider Barry Kilpatrick MD Unavailable Michelle Henderson I RN Unavailable [phone] Rio Jaquez MD Unavailable [phone] Jemima Jaramillo MD Unavailable Unavai Kelley Bautista RN Unavailable [phone] Sydnee Saleem MD Unavailable [phone] Karlene Moya MD Unavailable Wilbert Quintero OD Unavailable [phone] Rod Gauthier DPM Unavailable Jan Mahmood MD Unavailable [phone] Brandt Quintana MD Unavailable Jan Mahmood MD Unavailable +[phone] Rio Jaquez MD Unavailable [phone] Dom Eason MD Unavailable Jayla Plaza RN Unavailable +[phone] Jaimie Vernon RN Unavailable Unavailable Marquise Hanley MD Unavailable +[phone] Vlad Ramey MD Unavailable +[phone] Joesph Crowe MD Unavailable + [phone] Michelle Padilla RN Unavailable Unavaila ble Marquise Hanley MD Unavailable +[phone] Wagner Oliver MD Unavailable +[phone] Laura Epperson NP Unavailable +[phone] Joesph Crowe MD Unavailable [phone] Joesph Crowe MD Unavailable + [phone] Adonay Haq MD Unavailable [phone] Denilson Srinivasan MD Unavailable + [phone] Jason Alvares MD Unavailable Ruth Riddle DPM, Podiatry /Foot and Ankle Surgery Unavailable Omar Carmona MD Primary Care Provider [phone] Jignesh Mathias MD Unavailable Adonay Haq MD Unavailable [phone] Omar Carmona MD Unavailable +[phone] Jason Alvares MD Unavailable Jignesh Mathias MD Unavailable Ayad Lopez PhD LP Unavailable +[phone] Gavi Nieto PA-C Unavailable [phone] Encounter Details Date Type Department Care Team (Late st Contact Info) Description 01/11/2024 [facility] [address] [address] Melissa Dinh Social History Tobacco [...] any clubs o r organizations such as adventist groups, unions, fraternal or athletic groups, or [...] Answer Date Recorded PHQ-2 Score 2 08/26/2023 [facility] - Occupational Stress Questionnaire Answer [...] Assigned at Female 09/12/2020 12:05 PM BUSINESS SERVICES ASSOCIATE Legal Sex Female 3:26 AM BUSINESS SERVICES ASSOCIATE Gender Identity Female 09/12/2020 12:05 PM BUSINESS SERVICES ASSOCIATE Sexual Orientation Straight 12/19/2021 10 :44 [...] Contact Info) Description 06/13/2025 6:00 PM BUSINESS SERVICES ASSOCIATE Ancillary Procedure [facility] [address] [address] Omar Carmona MD [address] [place] [address] 06/14/2025 4:00 PM BUSINESS SERVICES ASSOCIATE Office Visit [facility] [address] [phone] Omar Carmona MD [address] [place] [address] 6[address] 06/15/2025 12:45 PM BUSINESS SERVICES ASSOCIATE Therapy [facility] 150 [place] [phone] Jason Alvares MD [address] [place] [address] 295 [place], [place] 682235 Chaya Castillo OTR [facility] 150 [place], [place] 994727 06/19/2025 10:30 AM BUSINESS SERVICES ASSOCIATE Virtual Visit [facility] [address] [phone] Omar Carmona MD [address] [place] [address] 393555 Gerson Santos [facility] 06/26/2025 11:00 AM BUSINESS SERVICES ASSOCIATE Therapy Visit [facility] 150 [place] [address]14 Jason Alvares MD [address] [place] [address] 295 [place] [address] Chaya Castillo OTR [facility] 150 [place] [address] 07/09/2025 12:45 PM BUSINESS SERVICES ASSOCIATE Therapy Visit [facility] 150 [place] [phone] Jason Alvares MD 420 [facility] 295 [place], [place] 384875 Chaya Castillo, OTR [address] [address] 07/18/2025 3:00 PM BUSINESS SERVICES ASSOCIATE Office Visit [facility] Heart [address] [phone] Adonay Chapman APRN [facility] 500 [place], [place] 161595 11/05/2025 12:30 PM CDT Lab [facility] Lab [address]st [place] [phone] 11/05/2025 1:45 PM CDT Office Visit [facility] Dermatology [address] 3rd [place] [phone] Gavi Nieto PA-C Dermatology [address] [place] [address] [phone] 11/20/2025 10:30 AM CDT Virtual Visit [address] [place] [phone] Marquise Hanley MD [address] [place] [address] 369[address] documented as of this encounter Goals Goal [...] Total Score: 9 06/14/20 23 7:18 AM BUSINESS SERVICES ASSOCIATE documented as of this encounter Care Teams Real Estate Sales Manager Relationship Specialty Start Date End Date Rio Jaquez MD [address] [place] [address] 4 [place] [address] PCP - General Family Practice 12/02/10 07/13/24 Omar Carmona MD [address] [place] [address] [phone] PCP - General Family Medicine 07/14/24 Barry Kilpatrick MD [address] [place] [address] [place], [place] 443055 Neurology 07/19/14 Michelle Henderson I, RN Nurse Coordinator Neurology 07/19/14 Rio Jaquez MD [address] [place] [address] 969725 Family Practice 10/15/14 Jemima Jaramillo MD event specialist 11/20/14 Kelley Chin, TANIA [facility] [address] [place] [address] 479325 Nurse Coordinator Cardiology 11/04/15 Sydnee Saleem MD [address] [place] [address] 508 [place], [place] 898625 Cardiology 11/04/15 Karlene Moya MD [address] [place] [address] Ophthalmology 06/24/17 Wilbert Quintero OD 9 [place] [address] Optometry 06/24/17 Rod Gauthier DPM [address] [place] [address]455 Sewing Machine Repairer Primary Podiatric Medicine 06/21/18 Jan Mahmood MD [address] [place] [address] Gastroenterology 11/05/20 Brandt Quintana MD [address] [place] [address]118 Resident 11/05/20 Jan Mahmood MD [address] [place] [address] 42995 Assigned Gastroenterology Provider 12/01/20 Rio Jaquez MD [address] [place] [address] 27891 Assigned PCP 11/17/20 09/30/24 Dom Eason MD [address] [address] Internal Medicine 12/02/20 Jayla Plaza, RN Specialty Visual Designer Hepatology 01/09/21 02/13/24 Jaimie Vernon, RN Specialty Visual Designer Cardiology 10/28/21 Marquise Hanley MD [address] [place] [address] 85393 Endocrinology, Diabetes, and Metabolism 03/05/22 Vlad Ramey MD [address] [place] [address] 83285 Cardiovascular Disease 05/07/22 Joesph Crowe MD [address] [place] [address]009 MD Surgery 05/07/22 Michelle Padilla RN Specialty Visual Designer Cardiology 07/03/22 Marquise Hanley MD [address] [place] [address] Assigned Endocrinology Provider 08/15/22 Wagner Oliver MD [address] [place] [address] Critical Care 12/15/22 Laura Epperson NP [address] [place] [address] 1932 [place] [address] Assigned Nephrology Provider 02/20/23 08/30/24 Joesph Crowe MD [address] [place] [address]40 Surgery 03/17/23 Joesph Crowe MD [address] [place] [address]63 Assigned Surgical Provider 04/03/23 09/30/24 Adnoay Haq MD [address] [place] [address] Internal Medicine 06/14/23October, Denilson Jackson MD [address] [facility] [address] [place] [address] Assigned Heart and Vascular Provider 05/29/23 11/28/24 Jason Alvares MD [address] [place] [address] Assigned Neuroscience Provider 05/15/23 11/28/24 Ruth Riddle, DPM, Podiatry/Foot and Ankle Surgery [address] [place] [address] Assigned Musculoskeletal Provider 10/22/23 Jignesh Mathias MD [address] [place] [address] Gastroenterology 09/25/24 Adonay Haq MD [address] [place] [address]14 Assigned PCP 10/01/24 12/28/24 Omar Carmona MD [address] [place] [address] 40619 Assigned PCP 12/29/24 Jason Alvares MD [address] [place] [address] Assigned Neuroscience Provider 12/29/24 Jignesh Mathias MD 9 [place] [address] Assigned Surgical Provider 12/29/24 Ayad Lopez, PhD LP [address] [place] [address] Assigned Behavioral Health Provider 02/28/25 Gavi Nieto, PANavinC [address] [place] [address] Physician Matcher Operator Dermatology 03/19/25 documented as of this encounter
--- OUTSIDE RECORDS SUMMARY | 2025-06-08 22:58 | XMS_ITS | Encounter Summary ---
Author Organization [facility] Address [address] [place] [address]43 Care Team Providers Care Electro Optical Engineer Name Role Phone Rio Jaquez MD Primary Care Provider Barry Kilpatrick MD Unavailable Michelle Henderson I RN Unavailable Rio Jaquez MD Unavailable +[phone] Jemima Jaramillo MD Unavailable Unavai Kelley Bautista RN Unavailable +[phone] Sydnee Saleem MD Unavailable +[phone] Karlene Moya MD Unavailable +[phone] Wilbert Quintero OD Unavailable +[phone] Rod Gauthier DPM Unavailable Jan Mahmood MD Unavailable +[phone] Brandt Quintana MD Unavailable +[phone] Jan Mahmood MD Unavailable +[phone] Rio Jaquez MD Unavailable +[phone] Dom Eason MD Unavailable Jayla Plaza RN Unavailable +[phone] Jaimie Vernon RN Unavailable Unavailable Ruth RiddleM, Podiatry /Foot and Ankle Surgery Unavailable Marquise Hanley MD Unavailable +[phone] Vlad Ramey MD Unavailable +[phone] Joesph Crowe MD Unavailable + [phone] Michelle Padilla RN Unavailable Unavaila ble Marquise Hanley MD Unavailable +[phone] Wagner Oliver MD Unavailable +[phone] aLura Epperson NP Unavailable +[phone] Thom Taveras MD Unavailable +[phone] Joesph Crowe MD Unavailable + [phone] Joesph Crowe MD Unavailable + [phone] Adonay Haq MD Unavailable [phone] Denilson Srinivasan MD Unavailable + [phone] Jason Alvares MD Unavailable Ruth Riddle DPM, Podiatry /Foot and Ankle Surgery Unavailable Omar Carmona MD Primary Care Provider [phone] Jignesh Mathias MD Unavailable Adonay Haq MD Unavailable +[phone] Omar Carmona MD Unavailable +[phone] Jason Alvares MD Unavailable Jignesh Mathias MD Unavailable Ayad Lopez PhD LP Unavailable +[phone] Gavi Nieot PA-C Unavailable +[phone] Encounter Details Date Type Department Care Team (Late st Contact Info) Description 06/29/2023 MyC Medical Advice [facility] End[facility]ology [facility] [address] 3rd [place] [address] Shara Payne, RN Social History [...] Answer Date Recorded PHQ-2 Score 2 06/14/2023 [facility] - Occupational [...] in an overnight alf, or couch-surfing.) Yes 06/06/2023 Are you worried [...] Sex Assigned at Female 09/12/2020 12:05 PM WOODENWARE ASSEMBLER Legal Sex Female 3:26 AM WOODENWARE ASSEMBLER Gender Identity Female 09/12/2020 12:05 PM WOODENWARE ASSEMBLER Sexual Orientation Straight 12/19/2021 10 :44 AM CDT Occupation Industry Job Start Date Job End Date on disability for FMS Not on file Not on file Not on file disabled Not on file Not on file Not on file documented as of this encounter Plan of Treatment Upcoming Encounters Date Type Department Care Team (Late st Contact Info) Description 06/13/2025 6:00 PM WOODENWARE ASSEMBLER Ancillary Procedure [address] 1st [place] [phone] Omar Carmona MD [address] [place] [address] 487345 06/14/2025 4:00 PM WOODENWARE ASSEMBLER Office Visit [facility] Primary Care [address] [phone] Omar Carmona MD [address] [place] [address] 990855 06/15/2025 12:45 PM WOODENWARE ASSEMBLER Therapy Visit [facility] 150 [place] [phone] Jaosn Alvares MD [address] [place] [address] 222215 Chaya Castillo, OTR [facility] 150 [place], [place] 564627 06/19/2025 10:30 AM WOODENWARE ASSEMBLER Virtual Visit [facility] Care [address] [phone] Omar Carmona MD [address] [place] [address] 926255 Gerson Santos RPH 06/26/2025 11:00 AM WOODENWARE ASSEMBLER Therapy Visit [facility] [address] [place] [phone] Jason Alvares MD [address] [place] [address] [phone] Chaya Castillo, OTR [facility] 150 [place] [address] 07/09/2025 12:45 PM WOODENWARE ASSEMBLER Therapy Visit [facility] Rehabilitation Services [address] [phone] Jason Alvares MD 420 [facility] 295 [place] [address] Chaya Castillo, OTR [facility] 150 [place] [address] 07/18/2025 3:00 PM WOODENWARE ASSEMBLER Office Visit [facility] Heart [address] [phone] Adonay Chapman APRN [facility] 500 [place], [place] 215795 11/05/2025 12:30 PM CDT Lab [facility] Lab [address]st [place] [phone] 11/05/2025 1:45 PM CDT Office Visit [facility] Dermatology [address] 3rd [place] [phone] Gavi Nieto PA-C Dermatology [address] [place] [address] 11/20/2025 10:30 AM CDT Virtual Visit [address] [place] [address] Marquise Hanley MD [address] [place] [address] 648135 documented as of this encounter Goals Goal [...] Total Score: 9 06/14/20 23 7:18 AM WOODENWARE ASSEMBLER documented as of this encounter Care Teams Electro Optical Engineer Relationship Specialty Start Date End Date Rio Jaquez MD [address] [place] [address] [phone] PCP - General Family Practice 12/02/10 07/13/24 Omar Carmona MD [address] [place] [address] 193515 PCP - General Family Medicine 07/14/24 Barry Kilpatrick MD [address] [place] [address] [id number] [place], [place] [phone] Neurology 07/19/14 Michelle Henderson RN Nurse Coordinator Neurology 07/19/14 Rio Jaquez MD [address] [place] [address] 561705 Family Practice 10/15/14 Jemima Jaramillo MD marine habitat resource specialist 11/20/14 Kelley Chin, TANIA [address] 727385 Nurse Coordinator Cardiology 11/04/15 Sydnee Saleem MD [address] [place] [address] 508 [place] [address] Cardiology 11/04/15 Karlene Moya MD [address] [place] [address] 66025 Ophthalmology 06/24/17 Wilbert Quintero, OD [address] [place] [address] 626125 Optometry 06/24/17 Rod Gauthier DPM [address] [place] [address] 339195 Raw Hide Trimmer Primary Podiatric Medicine 06/21/18 Jan Mahmood MD [address] [place] [address] [phone] MD Gastroenterology 11/05/20 Brandt Quintana MD [address] [place] [address] 84824 Resident 11/05/20 Jan Mahmood MD [address] [place] [address] 36163 Assigned Gastroenterology Provider 12/01/20 Rio Jaquez MD [address] [place] [address] 442655 Assigned PCP 11/17/20 09/30/24 Dom Eason MD 717 [facility] 353 [place], [place] 386384 Internal Medicine 12/02/20 Jayla Plaza, RN Specialty Black Belt Hepatology 01/09/21 02/13/24 Jaimie Vernon, RN Specialty Black Belt Cardiology 10/28/21 Ruth Riddle DPM, Podiatry/Foot and Ankle Surgery [address] [place] [address] Assigned Musculoskeletal Provider 11/30/21 09/30/23 Marquise Hanley MD [address] [place] [address] 92263 Endocrinology, Diabetes, and Metabolism 03/05/22 Vlad Ramey MD [address] [place] [address] 12731 Cardiovascular Disease 05/07/22 Joesph Crowe MD [address] [place] [address] 13290 Surgery 05/07/22 Michelle Padilla RN Specialty Black Belt Cardiology 07/03/22 Marquise Hanley MD [address] [place] [address] 84173 Assigned Endocrinology Provider 08/15/22 Wagner Oliver MD [address] [place] [address] Critical Care 12/15/22 Laura Epperson NP [address] [place], [place] [address] [place] [address] Assigned Nephrology Provider 02/20/23 08/30/24 Thom Taveras MD [address] [place], [place] [phone] [place] [address] Assigned Cancer Care Provider 02/06/23 08/20/23 Joesph Crowe MD [address] [place] [address] 42912 MD Surgery 03/17/23 Joesph Crowe MD [address] [place] [address] 91524 Assigned Surgical Provider 04/03/23 09/30/24 Adonay Haq MD [address] [place] [address] 55903 Internal Medicine 06/14/23OctoberDenilson MD [address] [facility] [address] [place] [address] Assigned Heart and Vascular Provider 05/29/23 11/28/24 Jason Alvares MD [address] [place] [address] 295 [place] [address] Assigned Neuroscience Provider 05/15/23 11/28/24 Ruth Riddle DPM, Podiatry/Foot and Ankle Surgery [address] [place] [place] [address] Assigned Musculoskeletal Provider 10/22/23 Jignesh Mathias MD [address] [place] [address] 19835 Gastroenterology 09/25/24 Adonay Haq MD [address] [place] [address] 975545 Assigned PCP 10/01/24 12/28/24 Omar Carmona MD [address] [place] [address] 928865 Assigned PCP 12/29/24 Jason Alvares MD [address] [place] [address] 160175 Assigned Neuroscience Provider 12/29/24 Jignesh Mathias MD [address] [place] [address] 26150 Assigned Surgical Provider 12/29/24 Ayad Lopez, PhD LP [address] [place] [address] 614175 Assigned Behavioral Health Provider 02/28/25 Gavi Nieto, PA-C [address] [place] [address] 973815 Physician Welder Apprentice Dermatology 03/19/25 documented as of this encounter
--- OUTSIDE RECORDS SUMMARY | 2025-06-08 22:58 | XMS_ITS | Encounter Summary ---
Author Organization [facility] Address [address] [place] [address] Care Team Providers Care Water Manager Name Role Phone Rio Jaquez MD Primary Care Provider Barry Kilpatrick MD Unavailable Michelle Henderson I RN Unavailable [phone] Rio Jaquez MD Unavailable +[phone] Jemima Jaramillo MD Unavailable Unavai Kelley Bautista RN Unavailable [phone] Sydnee Saleem MD Unavailable +[phone] Karlene Moya MD Unavailable Wilbert Quintero OD Unavailable +[phone] Rod Gauthier DPM Unavailable Jan Mahmood MD Unavailable [phone] Brandt Quintana MD Unavailable [phone] Jan Mahmood MD Unavailable +[phone] Rio Jaquez MD Unavailable [phone] Dom Eason MD Unavailable Jayla Plaza RN Unavailable +[phone] Jaimie Vernon RN Unavailable Unavailable Ruth Riddle DPM, Podiatry /Foot and Ankle Surgery Unavailable Marquise Hanley MD Unavailable +[phone] Vlad Ramey MD Unavailable +[phone] Joesph Crowe MD Unavailable +[phone] Michelle Padilla RN Unavailable Unavaila ble Vlad Ramey MD Unavailable +[phone] Marquise Hanley MD Unavailable +[phone] Wagner Oliver MD Unavailable +[phone] Laura Epperson NP Unavailable +[phone] Thom Taveras MD Unavailable +[phone] Joesph Crowe MD Unavailable +[phone] Joesph Crowe MD Unavailable +[phone] Adonay Haq MD Unavailable +[phone] Denilson Srinivasan MD Unavailable + [phone] Jason Alvares MD Unavailable Ruth Riddle DPM, Podiatry /Foot and Ankle Surgery Unavailable Omar Carmona MD Primary Care Provider +[phone] Jignesh Mathias MD Unavailable Adonay Haq MD Unavailable +1- Omar Carmona MD Unavailable +[phone] Jason Alvares MD Unavailable Jignesh Mathias MD Unavailable Ayad Lopez PhD LP Unavailable +[phone] Gavi Nieto PA-C Unavailable +[phone] Encounter Details Date Type Department Care Team (Late st Contact Info) Description 05/26/2023 MyC Medical Advice [facility] [address] [phone] Vlad Ramey MD [address] [place] [address] [phone] Social History Tobacco Use Types Packs/Day Years [...] Answer Date Recorded PHQ-2 Score 2 03/15/2023 [facility] - [...] in a assisted (including now)? No 08/27/2021 Adolescent Education Answer Date Record ed Getting School Help Needed Not on file 05/08 Comments No Sex and Gender Information Value Date Recorded Sex Assigned at Female 09/12/2020 12:05 PM MENTALLY RETARDED TEACHER Legal Sex Female 3:26 AM MENTALLY RETARDED TEACHER Gender Identity Female 09/12/2020 12:05 PM MENTALLY RETARDED TEACHER Sexual Orientation Straight 12/19/2021 10 :44 [...] st Contact Info) Description 06/13/2025 6:00 PM MENTALLY RETARDED TEACHER Ancillary Procedure [facility] CT [facility] [address]st [place] [phone] Omar Carmona MD [address] [place] [address] 145545 06/14/2025 4:00 PM MENTALLY RETARDED TEACHER Office Visit [facility] [address] 4th [place] [phone] Omar Carmona MD [address] [place] [address] 311995 06/15/2025 12:45 PM MENTALLY RETARDED TEACHER Therapy Visit [facility] 150 [place] [phone] Jason Alvares MD [address] [place] [address] 295 [place], [place] 394525 Chaya Castillo OTR [facility] 150 [place] [address] 06/19/2025 10:30 AM MENTALLY RETARDED TEACHER Virtual Visit [facility] [address] [place] [address] 4th [place] [phone] Omar Carmona MD [address] [place] [address] [phone] Gerson Santos, [facility] 06/26/2025 11:00 AM MENTALLY RETARDED TEACHER Therapy [facility] [address] [place] [phone] Jason Alvares MD [address] [place] [address] 753335 Chaya Castillo, OTR [address] [address] 07/09/2025 12:45 PM MENTALLY RETARDED TEACHER Therapy Visit [facility] 150 [place] [phone] Jason Alvares MD [address] [place] [address] 086535 Chaya Castillo, OTR [address] [address] 07/18/2025 3:00 PM MENTALLY RETARDED TEACHER Office Visit [facility] [address] [phone] Adonay Chapman APRN [facility] 500 [place], [place] 693545 11/05/2025 12:30 PM CDT Lab [facility] [address] 1st [place] [phone] 11/05/2025 1:45 PM CDT Office Visit [facility] Dermatology Clinic [address] 3rd [place] [phone] Gavi Nieto PA-C Dermatology [address] [place] [address] 289[address] 11/20/2025 10:30 AM CDT Virtual Visit [address] [place] [address] Marquise Hanley MD [address] [place] [address] 74350 documented as of this encounter Goals Goal [...] as of this encounter Care Teams Water Manager Relationship Specialty Start Date End Date Rio Jaquez MD [address] [place] [address] [address] [place] [address] PCP - General Family Practice 12/02/10 07/13/24 Omar Carmona MD [address] [place] [address] 86890 PCP - General Family Medicine 07/14/24 Barry Kilpatrick MD [address] [place] [address] [id number] [place], [place] 504815 Neurology 07/19/14 Michelle Henderson I, RN Nurse Coordinator Neurology 07/19/14 Rio Jaquez MD 9 [facility] [place] [address] [place], [place] 993755 Family Practice 10/15/14 Jemima Jarmaillo MD supervisor fruit grading 11/20/14 Kelley Chin, TANIA [facility] [address] [place] [address] 151355 Nurse Coordinator Cardiology 11/04/15 Sydnee Saleem MD [address] [place] [address] 508 [place] [address] Cardiology 11/04/15 Karlene Moya MD [address] [place] [address] 972665 Ophthalmology 06/24/17 Wilbert Quintero, OD [address] [place] [address] 142775 Optometry 06/24/17 Rod Gauthier DPM [address] [place] [address] 095015 Cable Lacer Primary Podiatric Medicine 06/21/18 Jan Mahmood MD [address] [place] [address] 2[address] [place], [place] 016725 Gastroenterology 11/05/20 Brandt Quintana MD [address] [place] [address] 48778 Resident 11/05/20 Jan Mahmood MD 516 [facility] 2A [place] [address] Assigned Gastroenterology Provider 12/01/20 Rio Jaquez MD [address] [place] [address] 76294 Assigned PCP 11/17/20 09/30/24 Dom Eason MD [address] [place] [address] 353 [place] [address] Internal Medicine 12/02/20 Jayla Plaza, RN Specialty Route Sales Trainee Hepatology 01/09/21 02/13/24 Jaimie Vernon, RN Specialty Route Sales Trainee Cardiology 10/28/21 Ruth Riddle, DPM, Podiatry/Foot and Ankle Surgery [address] [address] Assigned Musculoskeletal Provider 11/30/21 09/30/23 Marquise Hanley MD [address] [place] [address] 58494 Endocrinology, Diabetes, and Metabolism 03/05/22 Vlad Ramey MD [address] [place] [address] 26213 Cardiovascular Disease 05/07/22 Joesph Crowe MD [address] [place] [address] 34827 Surgery 05/07/22 Michelle Padilla, RN Specialty Route Sales Trainee Cardiology 07/03/22 Vlad Ramey MD [address] [place] [address] 93482 Assigned Heart and Vascular Provider 07/25/22 05/28/23 Marquise Hanley MD [address] [place] [address] 83311 Assigned Endocrinology Provider 08/15/22 Wagner Oliver MD [address] [place] [address] Critical Care 12/15/22 Laura Epperson NP 717 [facility] [address] [place] [address] Assigned Nephrology Provider 02/20/23 08/30/24 Thom Taveras MD [address], [address] [place] [address] Assigned Cancer Care Provider 02/06/23 08/20/23 Joesph Crowe MD [address] [place] [address] 09100 Surgery 03/17/23 Joesph Crowe MD [address] [place] [address] 05543 Assigned Surgical Provider 04/03/23 09/30/24 Adonay Haq MD 9 [place] [address] Internal Medicine 06/14/23OctoberDenilson MD [address] [facility] [address] [place] [address] Assigned Heart and Vascular Provider 05/29/23 11/28/24 Jason Alvares MD [address] 164955 Assigned Neuroscience Provider 05/15/23 11/28/24 Ruth Riddle DPM, Podiatry/Foot and Ankle Surgery [address] [place], [place] 438767 Assigned Musculoskeletal Provider 10/22/23 Jignesh Mathias MD [address] [place] [address] 32419 Gastroenterology 09/25/24 Adonay Haq MD [address] [place] [address] 07293 Assigned PCP 10/01/24 12/28/24 Omar Carmona MD [address] [place] [address] 38945 Assigned PCP 12/29/24 Jason Alvares MD [address] [address] Assigned Neuroscience Provider 12/29/24 Jignesh Mathias MD 90 [place] [address] Assigned Surgical Provider 12/29/24 Ayad Lopez, PhD LP [address] [place] [address]754 Assigned Behavioral Health Provider 02/28/25 Gavi Nieto PA-C [address] [place] [address] 14408 Physician Mortgage Loan Interviewer Dermatology 03/19/25 documented as of this encounter
--- OUTSIDE RECORDS SUMMARY | 2025-06-08 22:58 | XMS_ITS | Encounter Summary ---
Author Organization [facility] Address [address] [place] [address] Care Team Providers Care Lockstitch Machine Operator Name Role Phone Rio Jaquez MD Primary Care Provider Barry Kilpatrick MD Unavailable Michelle Henderson I RN Unavailable [phone] Rio Jaquez MD Unavailable +[phone] Jemima Jaramillo MD Unavailable Unavai Kelley Bautista RN Unavailable [phone] Sydnee Saleem MD Unavailable +[phone] Karlene Moya MD Unavailable Wilbert Quintero OD Unavailable +[phone] Rod Gauthier DPM Unavailable +[phone] Jan Mahmood MD Unavailable +[phone] Brandt Quintana MD Unavailable Jan Mahmood MD Unavailable +[phone] Rio Jaquez MD Unavailable +[phone] Dom Eason MD Unavailable Jayla Plaza RN Unavailable +[phone] Jaimie Vernon RN Unavailable Unavailable Ruth Riddle DPM, Podiatry /Foot and Ankle Surgery Unavailable Marquise Hanley MD Unavailable +[phone] Vlad Ramey MD Unavailable +[phone] Joesph Crowe MD Unavailable + [phone] Michelle Padilla RN Unavailable Unavaila ble Marquise Hanley MD Unavailable +[phone] Wagner Oliver MD Unavailable +[phone] Laura Epperson NP Unavailable +[phone] Joesph Crowe MD Unavailable + [phone] Joesph Crowe MD Unavailable + [phone] Adonay Haq MD Unavailable [phone] OctoberDenilson MD Unavailable + [phone] Jason Alvares MD Unavailable Ruth Riddle DPM, Podiatry /Foot and Ankle Surgery Unavailable Omar Carmona MD Primary Care Provider [phone] Jignesh Mathias MD Unavailable Adonay Haq MD Unavailable [phone] Omar Carmona MD Unavailable [phone] Jason Alvares MD Unavailable Jignesh Mathias MD Unavailable Ayad Lopez PhD LP Unavailable +[phone] Gavi Nieto PA-C Unavailable +[phone] Encounter Details Date Type Department Care Team (Late st Contact Info) Description 08/27/[address] [facility] [address] 3rd [place] [address] Lizbeth Lopes Social History Tobacco [...] Answer Date Recorded PHQ-2 Score 2 08/26/2023 [facility] - [...] in an abandoned building, in an overnight fdc, or couch-surfing.) Yes 07/12/2023 Are you worried [...] Sex Assigned at Female 09/12/2020 12:05 PM STORE PROMOTER Legal Sex Female 3:26 AM STORE PROMOTER Gender Identity Female 09/12/2020 12:05 PM STORE PROMOTER Sexual Orientation Straight 12/19/2021 10 :44 AM CDT Occupation Industry Job Start Date Job End Date on disability for FMS Not on file Not on file Not on file disabled Not on file Not on file Not on file documented as of this encounter Plan of Treatment Upcoming Encounters Date Type Department Care Team (Late st Contact Info) Description 06/13/2025 6:00 PM STORE PROMOTER Ancillary Procedure [address] [address] Omar Carmona MD [address] [place] [address] 06/14/2025 4:00 PM STORE PROMOTER Office Visit [facility] [address] [phone] Omar Carmona MD [address] [place] [address] 970055 06/15/2025 12:45 PM STORE PROMOTER Therapy Visit [facility] [address] [place] [phone] Jason Alvares MD [address] [place] [address] 622415 Chaya Castillo OTR [facility] 150 [place], [place] 115707 06/19/2025 10:30 AM STORE PROMOTER Virtual Visit [facility] [address] [phone] Omar Carmona MD [address] [place] [address] Gerson Santos [facility] 06/26/2025 11:00 AM STORE PROMOTER Therapy Visit [facility] 150 [facility] [place] [phone] Jason Alvares MD [address] [place] [address] 908045 Chaya Castillo, OTR [facility] 150 [facility] [place], [place] 926447 07/09/2025 12:45 PM STORE PROMOTER Therapy Visit [facility] 150 [place] [address] Jason Alvares MD 420 [facility] 295 [place] [address] Chaya Castillo, OTR [facility] 150 [place] [address] 07/18/2025 3:00 PM STORE PROMOTER Office Visit [facility] [address] [phone] Adonay Chapman APRN [facility] 500 [place], [place] 576925 11/05/2025 12:30 PM CDT Lab [facility] [address] [place] [phone] 11/05/2025 1:45 PM CDT Office Visit [facility] [address]rd [place] [phone] Gavi Nieto PA-C Dermatology [address] [place] [address] 11/20/2025 10:30 AM CDT Virtual Visit [address] [phone] Marquise Hanley MD [address] [place] [address] 719535 documented as of this encounter Goals Goal [...] Total Score: 9 06/14/20 23 7:18 AM STORE PROMOTER documented as of this encounter Care Teams Lockstitch Machine Operator Relationship Specialty Start Date End Date Rio Jaquez MD [address] [place] [address] 4 [place] [address] PCP - General Family Practice 12/02/10 07/13/24 Omar Carmona MD [address] [place] [address] PCP - General Family Medicine 07/14/24 Barry Kilpatrick MD [address] [place] [address] [id number] [place] [address] Neurology 07/19/14 Michelle Henderson I, RN Nurse Coordinator Neurology 07/19/14 Rio Jaquez MD [address] [place] [address] 519[address] Family Practice 10/15/14 Jemima Jaramillo MD chain saw operator 11/20/14 Kelley Chin, TANIA [address] 604635 Nurse Coordinator Cardiology 11/04/15 Sydnee Saleem MD [address] [place] [address] 508 [place], [place] 168165 Cardiology 11/04/15 Karlene Moya MD 516 [place], [place] 635855 Ophthalmology 06/24/17 Wilbert Quintero OD 909 [place], [place] 825595 Optometry 06/24/17 Rod Gauthier DPM 909 [place], [place] 118835 Mechanical Apprentice Primary Podiatric Medicine 06/21/18 Jan Mahmood MD 516 [facility] 2A [place], [place] 335165 MD Gastroenterology 11/05/20 Brandt Quintana MD [facility] [place] [address] Resident 11/05/20 Jan Mahmood MD 6 [facility] 2A [place], [place] 347955 Assigned Gastroenterology Provider 12/01/20 Rio Jaquez MD 909 [facility] 4 [place] [address] Assigned PCP 11/17/20 09/30/24 Dom Eason MD 717 [facility] 353 [place] [address] Internal Medicine 12/02/20 Jayla Plaza, RN Specialty Ct Scan Special Procedures Technologist Hepatology 01/09/21 02/13/24 Jaimie Vernon, TANIA Specialty Ct Scan Special Procedures Technologist Cardiology 10/28/21 Ruth Riddle, DPM, Podiatry/Foot and Ankle Surgery [address] [place] [address] Assigned Musculoskeletal Provider 11/30/21 09/30/23 Marquise Hanley MD [address] [place] [address] Endocrinology, Diabetes, and Metabolism 03/05/22 Vlad Ramey MD [address] [place] [address]68 Cardiovascular Disease 05/07/22 Joesph Crowe MD [address] [place] [address] 48498 Surgery 05/07/22 Michelle Padilla RN Specialty Ct Scan Special Procedures Technologist Cardiology 07/03/22 Marquise Hanley MD [address] [place] [address] 29901 Assigned Endocrinology Provider 08/15/22 Wagner Oliver MD [address] [place] [address] Critical Care 12/15/22 Laura Epperson, LULU [address] [place] [address] 1932 [place] [address] Assigned Nephrology Provider 02/20/23 08/30/24 Joesph Crowe MD [address] [place] [address] 49654 Surgery 03/17/23 Joesph Crowe MD [address] [place] [address] 13221 Assigned Surgical Provider 04/03/23 09/30/24 Adonay Haq MD [address] [place] [address] Internal Medicine 06/14/23OctoberDenilson MD 6405 [facility] Black [facility] [address] [place] [address] Assigned Heart and Vascular Provider 05/29/23 11/28/24 Jason Alvares MD [address] [place] [address] 9[address] Assigned Neuroscience Provider 05/15/23 11/28/24 Ruth Riddle, DPM, Podiatry/Foot and Ankle Surgery [address] [place], [place] 747347 Assigned Musculoskeletal Provider 10/22/23 Jignesh Mathias MD [address] [place] [address] Gastroenterology 09/25/24 Adonay Haq MD [address] [place] [address] Assigned PCP 10/01/24 12/28/24 Omar Carmona MD [address] [place] [address] Assigned PCP 12/29/24 Jason Alvares MD [address] [place] [address] Assigned Neuroscience Provider 12/29/24 Jignesh Mathias MD [address] [place] [address] Assigned Surgical Provider 12/29/24 Ayad Lopez, PhD LP [address] [place] [address] [phone] Assigned Behavioral Health Provider 02/28/25 Gavi Nieto PANavinC [address] [place] [address] [phone] Physician Medical Library Assistant Dermatology 03/19/25 documented as of this encounter
--- OUTSIDE RECORDS SUMMARY | 2025-06-08 22:58 | XMS_ITS | Encounter Summary ---
Author Organization [place] Address [address] [place] [address] Care Team Providers Care Passenger Service Manager Name Role Phone Rio Jaquez MD Primary Care Provider Barry Kilpatrick MD Unavailable Michelle Henderson I RN Unavailable [phone] Rio Jaquez MD Unavailable +[phone] Jemima Jaramillo MD Unavailable Unavai Kelley Bautista RN Unavailable [phone] Sydnee Saleem MD Unavailable [phone] Karlene Moya MD Unavailable Wilbert Quintero OD Unavailable [phone] Rod Gauthier DPM Unavailable [phone] Jan Mahmood MD Unavailable [phone] Brandt Quintana MD Unavailable Jan Mahmood MD Unavailable +[phone] Rio Jaquez MD Unavailable [phone] Dom Eason MD Unavailable Jayla Plaza RN Unavailable +[phone] Jaimie Vernon RN Unavailable Unavailable Ruth RiddleM, Podiatry /Foot and Ankle Surgery Unavailable Marquise Hanley MD Unavailable +[phone] Vlad Ramey MD Unavailable +[phone] Joesph Crowe MD Unavailable + [phone] Michelle Padilla RN Unavailable Unavaila ble Marquise Hanley MD Unavailable +[phone] Wagner Oliver MD Unavailable +[phone] Laura Epperson NP Unavailable +[phone] Thom Taveras MD Unavailable +[phone] Joesph Crowe MD Unavailable + [phone] Joesph Crowe MD Unavailable + [phone] Adonay Haq MD Unavailable [phone] Denilson Srinivasan MD Unavailable + [phone] Jason Alvares MD Unavailable Ruth Riddle DPM, Podiatry /Foot and Ankle Surgery Unavailable Omar Carmona MD Primary Care Provider [phone] Jignesh Mathias MD Unavailable Adonay Haq MD Unavailable +[phone] Omar Carmona MD Unavailable +[phone] Jason Alvares MD Unavailable Jignesh Mathias MD Unavailable Ayad Lopez PhD LP Unavailable [phone] Gavi Nieto PA-C Unavailable [phone] Encounter Details Date Type Department Care Team (Late st Contact Info) Description 08/19/2023 [facility] Internal Medicine [address] 4th [place] [address] Libzeth Lopes Social History Tobacco Use Types Packs/Day [...] Answer Date Recorded PHQ-2 Score 2 06/14/2023 [facility] - Occupational Stress Questionnaire Answer [...] Sex Assigned at Female 09/12/2020 12:05 PM MOLDED GOODS CONTROLS OPERATOR Legal Sex Female 3:26 AM MOLDED GOODS CONTROLS OPERATOR Gender Identity Female 09/12/2020 12:05 PM MOLDED GOODS CONTROLS OPERATOR Sexual Orientation Straight 12/19/2021 10 :44 AM CDT Occupation Industry Job Start Date Job End Date on disability for FMS Not on file Not on file Not on file disabled Not on file Not on file Not on file documented as of this encounter Plan of Treatment Upcoming Encounters Date Type Department Care Team (Late st Contact Info) Description 06/13/2025 6:00 PM MOLDED GOODS CONTROLS OPERATOR Ancillary Procedure [address] [place] [phone] Omar Carmona MD [address] [place] [address] 887975 06/14/2025 4:00 PM MOLDED GOODS CONTROLS OPERATOR Office Visit [facility] [address] [phone] Omar Carmona MD [address] [place] [address] 790135 06/15/2025 12:45 PM MOLDED GOODS CONTROLS OPERATOR Therapy Visit [facility] [phone] Jason Alvares MD [address] [place] [address] 257185 Chaya Castillo OTR [facility] [address] [place] [address] [place], [place] 5[address]757 06/19/2025 10:30 AM MOLDED GOODS CONTROLS OPERATOR Virtual Visit [facility] [address] [phone] Omar Carmona MD [address] [place] [address] 592925 Gerson Santos [facility] 06/26/2025 11:00 AM MOLDED GOODS CONTROLS OPERATOR Therapy [facility] [address] [place] [phone] Jason Alvares MD [address] [place] [address] 119875 Chaya Castillo OTR [facility] 150 [facility] [place] [address] 07/09/2025 12:45 PM MOLDED GOODS CONTROLS OPERATOR Therapy Visit [facility] 150 [place] [phone] Jason Alvares MD 420 [facility] 295 [place] [address] Chaya Castillo, OTR [facility] [address] [place] [address] 07/18/2025 3:00 PM MOLDED GOODS CONTROLS OPERATOR Office Visit [facility] Heart [address] [phone] Adonay Chapman APRN [facility] 500 [place], [place] 222065 11/05/2025 12:30 PM CDT Lab [facility] [address] [place] [phone] 11/05/2025 1:45 PM CDT Office Visit [facility] Dermatology [address]rd [place] [phone] Gavi Nieto PA-C Dermatology [address] [place] [address] 11/20/2025 10:30 AM CDT Virtual Visit [address] [place] [address] Marquise Hanley MD [address] [place] [address] [phone] documented as of this encounter Goals Goal [...] Total Score: 9 06/14/20 23 7:18 AM MOLDED GOODS CONTROLS OPERATOR documented as of this encounter Care Teams Passenger Service Manager Relationship Specialty Start Date End Date Rio Jaquez MD [address] [place] [address] [phone] PCP - General Family Practice 12/02/10 07/13/24 Omar Carmona MD [address] [place] [address] [phone] PCP - General Family Medicine 07/14/24 Barry Kilpatrick MD [address] [place] [address] [id number] [place], [place] 066235 Neurology 07/19/14 Michelle Henderson I, TANIA Nurse Coordinator Neurology 07/19/14 Rio Jaquez MD [address] [place] [address] [phone] MD Family Practice 10/15/14 Jemima Jaramillo MD material yard clerk 11/20/14 Kelley Chin, TANIA [address] 294015 Nurse Coordinator Cardiology 11/04/15 Sydnee Saleem MD [address] [place] [address] 508 [place], [place] 200885 MD Cardiology 11/04/15 Karlene Moya MD 6 [place] [address] MD Ophthalmology 06/24/17 Wilbert Quintero, OD 9 [place], [place] 980045 Optometry 06/24/17 Rod Gauthier DPM 9 [place], [place] 235315 MD Director Of Maintenance Primary Podiatric Medicine 06/21/18 Jan Mahmood MD [address] [place] [address] MD Gastroenterology 11/05/20 Brandt Quintana MD [address] [place] [address] Resident 11/05/20 Jan Mahmood MD [address] [place] [address] Assigned Gastroenterology Provider 12/01/20 Rio Jaquez MD 9 [facility] [address] [place] [address] 963725 Assigned PCP 11/17/20 09/30/24 Dom Eason MD 7 [facility]EL 353 [place] [address] Internal Medicine 12/02/20 Jayla Plaza, RN Specialty Watch Train Assembler Hepatology 01/09/21 02/13/24 Jaimie Vernon, RN Specialty Watch Train Assembler Cardiology 10/28/21 Ruth Riddle, DPM, Podiatry/Foot and Ankle Surgery [address] [place] [address] Assigned Musculoskeletal Provider 11/30/21 09/30/23 Marquise Hanley MD [address] [place] [address]10 Endocrinology, Diabetes, and Metabolism 03/05/22 Vlad Ramey MD [address] [place] [address] 925925 Cardiovascular Disease 05/07/22 Joesph Crowe MD [address] [place] [address] 031635 Surgery 05/07/22 Michelle Padilla, RN Specialty Watch Train Assembler Cardiology 07/03/22 Marquise Hanley MD [address] [place] [address]25 Assigned Endocrinology Provider 08/15/22 Wagner Oliver MD [address] [place] [address] Critical Care 12/15/22 Laura Epperson, LULU 717 [facility] 1932 [place] [address] Assigned Nephrology Provider 02/20/23 08/30/24 Thom Taveras MD [address] [place] [address] 71367 Assigned Cancer Care Provider 02/06/23 08/20/23 Joesph Crowe MD [address] [place] [address] 22763 MD Surgery 03/17/23 Joesph Crowe MD [address] [place] [address] 91213 Assigned Surgical Provider 04/03/23 09/30/24 Adonay Haq MD [address] [place] [address] Internal Medicine 06/14/23OctoberDenilson MD [address] [facility] [address] [place] [address] Assigned Heart and Vascular Provider 05/29/23 11/28/24 Jason Alvares MD [address] [place] [address] 295 [place] [address] Assigned Neuroscience Provider 05/15/23 11/28/24 Ruth Riddle DPM, Podiatry/Foot and Ankle Surgery [address] [place] [address] Assigned Musculoskeletal Provider 10/22/23 Jignesh Mathias MD [address] [place] [address] 168[address] Gastroenterology 09/25/24 Adonay Haq MD [address] [place] [address] 564075 Assigned PCP 10/01/24 12/28/24 Omar Carmona MD [address] [place] [address] 870365 Assigned PCP 12/29/24 Jason Alvares MD [address] [place] [address] 913805 Assigned Neuroscience Provider 12/29/24 Jignesh Mathias MD [address] [place] [address] 886275 Assigned Surgical Provider 12/29/24 Ayad Lopez, PhD LP [address] [place] [address] [phone] Assigned Behavioral Health Provider 02/28/25 Gavi Nieto PA-C [address] [place] [address] 699175 Physician Quality Assurance Advisor Dermatology 03/19/25 documented as of this encounter
--- OUTSIDE RECORDS SUMMARY | 2025-06-08 22:58 | XMS_ITS | Encounter Summary ---
Author Organization [facility] Address [address] [place] [address] 17706 Care Team Providers Care Golf Ball Marker Name Role Phone Rio Jaquez MD Primary Care Provider Barry Kilpatrick MD Unavailable Michelle Henderson RN Unavailable [phone] Rio Jaquez MD Unavailable [phone] Jemima Jaramillo MD Unavailable Unavai Kelley Bautista RN Unavailable [phone] Sydnee Saleem MD Unavailable +[phone] Karlene Moya MD Unavailable [phone] Wilbert Quintero OD Unavailable +[phone] Rod Gauthier DPM Unavailable +[phone] Nallely Hogue RN Unavailable Unavailable Larisa Vargas RN Unavailable Unavailable Francisco Lott MD Unavailable +[phone] Greg Ortega MD Unavailable +[phone] Jan Mahmood MD Unavailable +[phone] Brandt Quintana MD Unavailable +[phone] Jan Mahmood MD Unavailable Rio Jaquez [...] MD Unavailable Joesph Crowe MD Unavailable +[phone] Joesph Crowe MD Unavailable +[phone] Adonay Haq MD Unavailable [phone] Denilson Srinivasan MD Unavailable +[phone] Jason Alvares MD Unavailable Ruth RiddleM, Podiatry /Foot and Ankle Surgery Unavailable Omar Carmona MD Primary Care Provider Jignesh Mathias MD Unavailable Adonay Haq MD Unavailable [phone] Omar Carmona MD Unavailable [phone] Jason Alvares MD Unavailable Jignesh Mathias MD Unavailable Ayad Lopez PhD LP Unavailable [phone] Gavi Nieto-C Unavailable +[phone] Encounter Details Date Type Department Care Team (Late st Contact Info) Description 03/01/2021 [facility] Nephrology Clinic [address] [address] Veronica Herr Social History Tobacco [...] Sex Assigned at Female 09/12/2020 12:05 PM SOIL SCIENCE TECHNICAL OFFICER Legal Sex Female 3:26 AM SOIL SCIENCE TECHNICAL OFFICER Gender Identity Female 09/12/2020 12:05 PM SOIL SCIENCE TECHNICAL OFFICER Sexual Orientation Straight 12/19/2021 10 :44 [...] st Contact Info) Description 06/13/2025 6:00 PM SOIL SCIENCE TECHNICAL OFFICER Ancillary Procedure [facility] Imaging Center CT Clinic [address]st [place] [phone] Omar Carmona MD [address] [place] [address] 650335 06/14/2025 4:00 PM SOIL SCIENCE TECHNICAL OFFICER Office Visit [facility] Primary Care Clinic [address] [address] Omar Carmona MD [address] [place] [address] 835775 06/15/2025 12:45 PM SOIL SCIENCE TECHNICAL OFFICER Therapy Visit [facility] [address] [place] [phone] Jason Alvares MD [address] [place] [address] 682575 Chaya Castillo, OTR [facility] 150 [place] [address] 06/19/2025 10:30 AM SOIL SCIENCE TECHNICAL OFFICER Virtual Visit [facility] Primary Care [address] [phone] Omar Carmona MD [address] [place] [address] [phone] Gerson Santos RPH 06/26/2025 11:00 AM SOIL SCIENCE TECHNICAL OFFICER Therapy Visit [facility] [address] [place] [phone] Jason Alvares MD [address] [place] [address] Chaya Castillo OTR [address] [address] 07/09/2025 12:45 PM SOIL SCIENCE TECHNICAL OFFICER Therapy Visit [facility] Rehabilitation Services [address] [phone] Jason Alvares MD [address] [place] [address] Chaya Castillo OTR [address] [address] 07/18/2025 3:00 PM SOIL SCIENCE TECHNICAL OFFICER Office Visit [facility] Heart [address] [phone] Adonay Chapman APRN [address] 560345 11/05/2025 12:30 PM CDT Lab [facility] Lab [address] [phone] 11/05/2025 1:45 PM CDT Office Visit [facility] Dermatology [address]rd [place] [phone] Gavi Nieto PA-C Dermatology [address] [place] [address] 11/20/2025 10:30 AM CDT Virtual Visit [address] [phone] Marquise Hanley MD [address] [place] [address] [phone] documented as of this encounter Goals Goal [...] Depression Total Score: 12 021 9:43 AM SOIL SCIENCE TECHNICAL OFFICER documented as of this encounter Care Teams Golf Ball Marker Relationship Specialty Start Date End Date Rio Jaquez MD [address] [place] [address] 10205 PCP - General Family Practice 12/02/10 07/13/24 Omar Carmona MD [address] [place] [address] 26932 PCP - General Family Medicine 07/14/24 Barry Kilpatrick MD [address] [place] [address] [id number] [place] [address] Neurology 07/19/14 Michelle Henderson I, TANIA Nurse Coordinator Neurology 07/19/14 Rio Jaquez MD [address] [place] [address] Family Practice 10/15/14 Jemima Jaramillo MD ventilated rib fitter 11/20/14 Kelely Chin, TANIA [facility] [address] [place] [address] 97489 Nurse Coordinator Cardiology 11/04/15 Sydnee Saleem MD 420 [facility] 508 [place] [address] Cardiology 11/04/15 Karlene Moya MD [address] [place] [address] 812475 Ophthalmology 06/24/17 Wilbert Quintero, OD [address] [place] [address] 710125 Optometry 06/24/17 Rod Gauthier DPM [address] [place] [address] 222285 Personal Driver Primary Podiatric Medicine 06/21/18 Nallely Hogue, TANIA Registered Nurse 02/20/19 11/23/22 Larisa Vargas, TANIA Specialty Professor Computer Science Cardiology 04/18/19 03/06/22 Francisco Lott MD [address] [place] [address] 88 [place], [place] 518355 Assigned Rheumatology Provider 05/31/20 12/13/21 Greg Ortega MD [address] [place] [address] 360025 Assigned Surgical Provider 06/23/20 12/06/21 Jan Mahmood MD [address] [place] [address] 2A [place], [place] 423975 Gastroenterology 11/05/20 Brandt Quintana MD 1414 [place] [address] Resident 11/05/20 Jan Mahmood MD 516 [facility] 2A [place] [address] Assigned Gastroenterology Provider 12/01/20 Rio Jaquez MD 909 [facility] 4 [place], [place] 233595 Assigned PCP 11/17/20 09/30/24 Dom Eason MD [address] [place] [address] 353 [place], [place] 464124 Internal Medicine 12/02/20 Jayla Plaza, RN Specialty Professor Computer Science Hepatology 01/09/21 02/13/24 Sydnee Saleem MD [address] [place] [address] [phone] Assigned Heart and Vascular Provider 02/02/21 07/24/22 Phan Coello MD Assigned Neuroscience Provider 02/21/21 11/22/21 Cristian Barragan MD [address] [place] [address] Assigned Infectious Disease Provider 02/21/21 03/06/22 Dom Eason MD [address] [place] [address] 353 [place] [address] Assigned Nephrology Provider 04/20/21 01/02/22 Jaimie Vernon, RN Specialty Professor Computer Science Cardiology 10/28/21 Ruth Riddle DPM, Podiatry/Foot and Ankle Surgery [address] [place] [address] Assigned Musculoskeletal Provider 11/30/21 09/30/23 Luis Arrington MD [address] [place] [address] Assigned Neuroscience Provider 11/23/21 01/02/22 Jason Alvares MD [address] [place] [address] Assigned Neuroscience Provider 01/03/22 05/15/22 Marquise Hanley MD [address] [place] [address] 8[address]70 Endocrinology, Diabetes, and Metabolism 03/05/22 Vlad Ramey MD [address] [place] [address] 7[address]80 Cardiovascular Disease 05/07/22 Joesph Crowe MD [address] [place] [address] 0[address] Surgery 05/07/22 Luis Arrington MD [address] [place] [address] 427[address] Assigned Neuroscience Provider 05/16/22 05/14/23 Michelle Padilla RN Specialty Professor Computer Science Cardiology 07/03/22 Vlad Ramey MD 909 [place] [address] Assigned Heart and Vascular Provider 07/25/22 05/28/23 Marquise Hanley MD 9 [place] [address] Assigned Endocrinology Provider 08/15/22 Dom Eason MD 717 [facility] 353 [place] [address] Assigned Nephrology Provider 11/28/22 02/19/23 Wagner Oliver MD 6401 [facility] [place] [address] Critical Care 12/15/22 Laura Epperson, OFFICE COORDINATOR RECEPTIONIST 7 [facility] [address] [place] [address] Assigned Nephrology Provider 02/20/23 08/30/24 Thom Taveras MD [address] [place] [address] Assigned Cancer Care Provider 02/06/23 08/20/23 Joesph Crowe MD [address] [place] [address] 89170 Surgery 03/17/23 Joesph Crowe MD [address] [place] [address] 63550 Assigned Surgical Provider 04/03/23 09/30/24 Adonay Haq MD [address] [place] [address] 10837 Internal Medicine 06/14/23OctoberDenilson MD [address] [place], [place] 625335 Assigned Heart and Vascular Provider 05/29/23 11/28/24 Jason Alvares MD [address] 429805 Assigned Neuroscience Provider 05/15/23 11/28/24 Ruth Riddle DPM, Podiatry/Foot and Ankle Surgery [address] [place], [place] 462067 Assigned Musculoskeletal Provider 10/22/23 Jignesh Mathias MD [address] [place] [address] 092875 Gastroenterology 09/25/24 Adonay Haq MD [address] [place] [address] 10178 Assigned PCP 10/01/24 12/28/24 Omar Carmona MD [address] [place] [address] [phone] Assigned PCP 12/29/24 Jason Alvares MD [address] 216625 Assigned Neuroscience Provider 12/29/24 Jignesh Mathias MD [address] [place] [address] 78905 Assigned Surgical Provider 12/29/24 Ayad Lopez, PhD LP [address] [place] [address] 62[address] Assigned Behavioral Health Provider 02/28/25 Gavi Nieto PANavinC [address] [place] [address] Physician Security Systems Installer Dermatology 03/19/25 documented as of this encounter
--- OUTSIDE RECORDS SUMMARY | 2025-06-08 22:58 | XMS_ITS | Encounter Summary ---
Author Organization [facility] Address [address] [place] [address] Care Team Providers Care Field Captain Name Role Phone Rio Jaquez MD Primary Care Provider Barry Kilpatrick MD Unavailable Michelle Henderson I RN Unavailable [phone] Rio Jaquez MD Unavailable [phone] Jemima Jaramillo MD Unavailable Unavai Kelley Bautista RN Unavailable [phone] Sydnee Saleem MD Unavailable [phone] Karlene Moya MD Unavailable Wilbert Quintero OD Unavailable [phone] Rod Gauthier DPM Unavailable Jan Mahmood MD Unavailable [phone] Brandt Quintana MD Unavailable Jan Mahmood MD Unavailable [phone] Rio Jaquez MD Unavailable [phone] Dom Eason MD Unavailable Jayla Plaza RN Unavailable [phone] Jaimie Vernon RN Unavailable Unavailable Ruth RiddleM, Podiatry /Foot and Ankle Surgery Unavailable Marquise Hanley MD Unavailable [phone] Vlad Ramey MD Unavailable +[phone] Joesph Crowe MD Unavailable + [phone] Michelle Padilla RN Unavailable Unavaila ble Marquise Hanley MD Unavailable +[phone] Wagner Oliver MD Unavailable [phone] Laura Epperson NP Unavailable [phone] Thom Taveras MD Unavailable [phone] Joesph Crowe MD Unavailable + [phone] Joesph Crowe MD Unavailable + [phone] Adonay Haq MD Unavailable [phone] Denilson Srinivasan MD Unavailable + [phone] Jason Alvares MD Unavailable Ruth Riddle DPM, Podiatry /Foot and Ankle Surgery Unavailable Omar Carmona MD Primary Care Provider [phone] Jignesh Mathias MD Unavailable Adonay Haq MD Unavailable +[phone] Omar Carmona MD Unavailable [phone] Jason Alvares MD Unavailable Jignesh Mathias MD Unavailable Ayad Lopez PhD LP Unavailable [phone] Gavi Nieto PA-C Unavailable [phone] Encounter Details Date Type Department Care Team (Late st Contact Info) Description 07/10/2023 MyC Medical Advice [facility] General Surgery Clinic [address] [place] [address] Joesph Crowe MD [address] [place] [address] [phone] Social History Tobacco Use Types Packs/Day Years [...] Answer Date Recorded PHQ-2 Score 2 06/14/2023 [facility] [place] of Occupat ional Health - Occupational Stress [...] Sex Assigned at Female 09/12/2020 12:05 PM ANGIO TECHNOLOGIST Legal Sex Female 3:26 AM ANGIO TECHNOLOGIST Gender Identity Female 09/12/2020 12:05 PM ANGIO TECHNOLOGIST Sexual Orientation Straight 12/19/2021 10 :44 AM CDT Occupation Industry Job Start Date Job End Date on disability for FMS Not on file Not on file Not on file disabled Not on file Not on file Not on file documented as of this encounter Plan of Treatment Upcoming Encounters Date Type Department Care Team (Late st Contact Info) Description 06/13/2025 6:00 PM ANGIO TECHNOLOGIST Ancillary Procedure [facility] Imaging Center CT Clinic [address] [place] [phone] Omar Carmona MD [address] [place] [address] 351215 06/14/2025 4:00 PM ANGIO TECHNOLOGIST Office Visit [facility] Primary Care Clinic [address] [phone] Omar Carmona MD [address] [place] [address] [phone] 06/15/2025 12:45 PM ANGIO TECHNOLOGIST Therapy Visit [address] [phone] Jason Alvares MD [address] [place] [address] 189655 Chaya Castillo, OTR [address] [address] 06/19/2025 10:30 AM ANGIO TECHNOLOGIST Virtual Visit [address] [phone] Omar Carmona MD [address] [place] [address] 773565 Gerson Santos RPH 06/26/2025 11:00 AM ANGIO TECHNOLOGIST Therapy Visit [address] [phone] Jason Alvares MD [address] [place] [address] [phone] Chaya Castillo, OTR [facility] 150 [place] [address] 07/09/2025 12:45 PM ANGIO TECHNOLOGIST Therapy Visit [facility] Rehabilitation Services [facility] 150 [place] [address]-583214 Jason Alvares MD 420 [facility] 295 [place], [place] 266695 Chaya Castillo OTR [facility] 150 [place] [address] 07/18/2025 3:00 PM ANGIO TECHNOLOGIST Office Visit [facility] Heart [address] [phone] Adonay Chapman APRN [address] 842145 11/05/2025 12:30 PM CDT Lab [facility] Lab [address] [place] [phone] 11/05/2025 1:45 PM CDT Office Visit [facility] Dermatology Clinic [address] [place] [phone] Gavi Nieto PA-C Dermatology [address] [place] [address] 11/20/2025 10:30 AM CDT Virtual Visit [address] [address] Marquise Hanley MD [address] [place] [address] 316105 documented as of this encounter Goals Goal [...] Total Score: 9 06/14/20 23 7:18 AM ANGIO TECHNOLOGIST documented as of this encounter Care Teams Field Captain Relationship Specialty Start Date End Date Rio Jaquez MD [address] [place] [address] 89058 PCP - General Family Practice 12/02/10 07/13/24 Omar Carmona MD [address] [place] [address]3789 PCP - General Family Medicine 07/14/24 Barry Kilpatrick MD [address] [place] [address] [id number] [place] [address] Neurology 07/19/14 Michelle Henderson RN Nurse Coordinator Neurology 07/19/14 Rio Jaquez MD [address] [place] [address] 503735 Family Practice 10/15/14 Jemima Jaramillo MD engine repairer 11/20/14 Kelley Chin, TANIA [address] 474755 Nurse Coordinator Cardiology 11/04/15 Sydnee Saleem MD 420 [facility] 508 [place], [place] 087435 Cardiology 11/04/15 Kalrene Moya MD 6 [place], [place] 016505 Ophthalmology 06/24/17 Wilbert Quintero, OD 9 [place], [place] 575825 Optometry 06/24/17 Rod Gauthier DPM 9 [place], [place] 335195 MD Leather Lacer Primary Podiatric Medicine 06/21/18 Jan Mahmood MD [address] [place] [address] 2A [place], [place] 673785 Gastroenterology 11/05/20 Brandt Quintana MD [address] [place] [address] Resident 11/05/20 Jan Mahmood MD 6 [facility] 2A [place] [address] Assigned Gastroenterology Provider 12/01/20 Rio Jaquez MD 909 [facility] 4 [place] [address] Assigned PCP 11/17/20 09/30/24 Dom Eason MD [address] [place] [address] 93976 Internal Medicine 12/02/20 Jayla Plaza, RN Specialty Benefits Manager Hepatology 01/09/21 02/13/24 Jaimie Vernon, RN Specialty Benefits Manager Cardiology 10/28/21 Ruth Riddle DPM, Podiatry/Foot and Ankle Surgery [address] [address] Assigned Musculoskeletal Provider 11/30/21 09/30/23 Marquise Hanley MD [address] [place] [address] Endocrinology, Diabetes, and Metabolism 03/05/22 Vlad Ramey MD [address] [place] [address] 94970 Cardiovascular Disease 05/07/22 Joesph Crowe MD [address] [place] [address] 25860 Surgery 05/07/22 Michelle Padilla, RN Specialty Benefits Manager Cardiology 07/03/22 Marquise Hanley MD [address] [place] [address] 84513 Assigned Endocrinology Provider 08/15/22 Wagner Oliver MD [address] [place] [address] Critical Care 12/15/22 Laura Epperson NP 717 [facility] [address] [place] [address] Assigned Nephrology Provider 02/20/23 08/30/24 Thom Taveras MD [address] [place] [address] Assigned Cancer Care Provider 02/06/23 08/20/23 Joesph Crowe MD 9 [place], [place] 789745 MD Surgery 03/17/23 Joesph Crowe MD 9 [place], [place] 187845 Assigned Surgical Provider 04/03/23 09/30/24 Adonay Haq MD 9 [place], [place] 940455 Internal Medicine 06/14/23 Denilson Srinivasan MD [address] [facility] [address] [place] [address] Assigned Heart and Vascular Provider 05/29/23 11/28/24 Jason Alvares MD 420 [facility] 295 [place], [place] 658175 Assigned Neuroscience Provider 05/15/23 11/28/24 Ruth Riddle DPM, Podiatry/Foot and Ankle Surgery [address] [place], [place] 424847 Assigned Musculoskeletal Provider 10/22/23 Jignesh Mathias MD [address] [place] [address] 687145 Gastroenterology 09/25/24 Adonay Haq MD [address] [place] [address] 824345 Assigned PCP 10/01/24 12/28/24 Omar Carmona MD [address] [place] [address] 224305 Assigned PCP 12/29/24 Jason Alvares MD [address] [place] [address] [phone] Assigned Neuroscience Provider 12/29/24 Jignesh Mathias MD [address] [place] [address] 184605 Assigned Surgical Provider 12/29/24 Ayad Lopez, PhD LP [address] [place] [address] 650865 Assigned Behavioral Health Provider 02/28/25 Gavi Nieto PA-C [address] [place] [address] 346525 Physician Sports Medicine Coordinator Dermatology 03/19/25 documented as of this encounter
--- OUTSIDE RECORDS SUMMARY | 2025-06-08 22:58 | XMS_ITS | Encounter Summary ---
Author Organization [place] Address [address] [place] [address]89 Care Team Providers Care Wire Technician Name Role Phone Rio Jaquez MD Primary Care Provider Barry Kilpatrick MD Unavailable Michelle Henderson I RN Unavailable [phone] Rio Jaquez MD Unavailable +[phone] Jemima Jaramillo MD Unavailable Unavai Kelley Bautista RN Unavailable [phone] Sydnee Saleem MD Unavailable +[phone] Karlene Moya MD Unavailable Wilbert Quintero OD Unavailable +[phone] Rod Gauthier DPM Unavailable +[phone] Jan Mahmood MD Unavailable +[phone] Brandt Quintana MD Unavailable Jan Mahmood MD Unavailable +[phone] Rio Jaquez MD Unavailable +[phone] Dom Eason MD Unavailable Jayla Plaza RN Unavailable +[phone] Jaimie Vernon RN Unavailable Unavailable Ruth Riddle DPM, Podiatry /Foot and Ankle Surgery Unavailable Marquise Hanley MD Unavailable +[phone] Vlad Ramey MD Unavailable +[phone] Joesph Crowe MD Unavailable +[phone] Michelle Padilla RN Unavailable Unavaila ble Vlad Ramey MD Unavailable +[phone] Marquise Hanley MD Unavailable +[phone] Wagner Oliver MD Unavailable +[phone] Laura Epperson NP Unavailable +[phone] Thom Taveras MD Unavailable +[phone] Joesph Crowe MD Unavailable +[phone] Joesph Crowe MD Unavailable +[phone] Adonay Haq MD Unavailable +[phone] Denilson Srinivasan MD Unavailable + [phone] Jason Alvares MD Unavailable Ruth Riddle DPM, Podiatry /Foot and Ankle Surgery Unavailable Omar Carmona MD Primary Care Provider +[phone] Jignesh Mathias MD Unavailable Adonay Haq MD Unavailable +[phone] Omar Carmona MD Unavailable +[phone] Jason Alvares MD Unavailable Jignesh Mathias MD Unavailable Ayad Lopez PhD LP Unavailable +[phone] Gavi Nieto PA-C Unavailable +[phone] Encounter Details Date Type Department Care Team (Late st Contact Info) Description 05/26/2023 MyC Medical Advice [facility] Hepatology Clinic [address] [phone] Jan Mahmood MD [address] [facility] [address] [place], [place] 315[address] Social History Tobacco Use Types Packs/Day Years [...] Recorded PHQ-2 Score 2 03/15/2023 [facility] of Occupat ional [...] in a fci (including now)? No 08/27/2021 Adolescent Education Answer Date Record ed Getting School Help Needed Not on file 05/08 Comments No Sex and Gender Information Value Date Recorded Sex Assigned at Female 09/12/2020 12:05 PM PANAMA HAT HYDRAULIC PRESS OPERATOR Legal Sex Female 3:26 AM PANAMA HAT HYDRAULIC PRESS OPERATOR Gender Identity Female 09/12/2020 12:05 PM PANAMA HAT HYDRAULIC PRESS OPERATOR Sexual Orientation Straight 12/19/2021 10 :44 [...] st Contact Info) Description 06/13/2025 6:00 PM PANAMA HAT HYDRAULIC PRESS OPERATOR Ancillary Procedure [facility] Clinic [address]st [place] [phone] Omar Carmona MD [address] [place] [address] 246365 06/14/2025 4:00 PM PANAMA HAT HYDRAULIC PRESS OPERATOR Office Visit [facility] [address] 4th [place] [phone] Omar Carmona MD [address] [place] [address] [phone] 06/15/2025 12:45 PM PANAMA HAT HYDRAULIC PRESS OPERATOR Therapy Visit [facility] Rehabilitation Services [address] [phone] Jason Alvares MD [address] [place] [address] [phone] Chaya Castillo, WES[facility] 150 [place] [address] 06/19/2025 10:30 AM PANAMA HAT HYDRAULIC PRESS OPERATOR Virtual Visit [facility] [address] [place] [address] 4th [place] [phone] Omar Carmona MD [address] [place] [address] 226845 Gerson Santos, [facility] 06/26/2025 11:00 AM PANAMA HAT HYDRAULIC PRESS OPERATOR [facility] [address] [place] [phone] Jason Alvares MD [address] [place] [address] 354335 Chaya Castillo, [facility] 150 [place] [address] 07/09/2025 12:45 PM PANAMA HAT HYDRAULIC PRESS OPERATOR Therapy [facility] [address] [place] [phone] Jason Alvares MD [address] [place] [address] [phone] Chaya Castillo, OTR [facility] 150 [place] [address] 07/18/2025 3:00 PM PANAMA HAT HYDRAULIC PRESS OPERATOR Office Visit [facility] Heart Clinic [address] [phone] Adonay Chapman APRN [facility] 500 [place], [place] [address]885 11/05/2025 12:30 PM CDT Lab [facility] Lab [address] [phone] 11/05/2025 1:45 PM CDT Office Visit [facility] Dermatology Clinic [place] [address] 3rd [place] [phone] Gavi Nieto PA-C Dermatology [address] [place] [address] 11/20/2025 10:30 AM CDT Virtual Visit [address] [address] Marquise Hanley MD [address] [place] [address] 71334 documented as of this encounter Goals Goal [...] documented as of this encounter Care Teams Wire Technician Relationship Specialty Start Date End Date Rio Jaquez MD [address] [place] [address] [address] 4 [place] [address] PCP - General Family Practice 12/02/10 07/13/24 Omar Carmona MD [address] [place] [address] PCP - General Family Medicine 07/14/24 Barry Kilpatrick MD [address] [place] [address] [id number] [place], [place] 557285 Neurology 07/19/14 Michelle Henderson I, RN Nurse Coordinator Neurology 07/19/14 Rio Jaquez MD [address] [place] [address] 4 [place], [place] 417225 Family Practice 10/15/14 Jemima Jaramillo MD order runner 11/20/14 Kelley Chin, TANIA [address] 282255 Nurse Coordinator Cardiology 11/04/15 Sydnee Saleem MD [address] [place] [address] 508 [place], [place] 336125 Cardiology 11/04/15 Karlene Moya MD [address] [place] [address] 104265 Ophthalmology 06/24/17 Wilbert Quintero, OD [address] [place] [address] 774475 Optometry 06/24/17 Rod Gauthier DPM [address] [place] [address] 653405 Automatic Machines Supervisor Primary Podiatric Medicine 06/21/18 Jan Mahmood MD [address] [place] [address] 2A [place], [place] 033115 Gastroenterology 11/05/20 Brandt Quintana MD 1414 [place] [address] Resident 11/05/20 Jan Mahmood MD [facility] [place] [address] Assigned Gastroenterology Provider 12/01/20 Rio Jaquez MD 909 [facility] 4 [place] [address] Assigned PCP 11/17/20 09/30/24 Dom Eason MD 717 [facility] MICHAEL 353 [place], [place] 046964 Internal Medicine 12/02/20 Jayla Plaza, RN Specialty City Marshal Hepatology 01/09/21 02/13/24 Jaimie Vernon, RN Specialty City Marshal Cardiology 10/28/21 Ruth Riddle, DPM, Podiatry/Foot and Ankle Surgery [address] [place] [address] [address] Assigned Musculoskeletal Provider 11/30/21 09/30/23 Marquise Hanley MD [address] [place] [address] Endocrinology, Diabetes, and Metabolism 03/05/22 Vlad Ramey MD [address] [place] [address] 12077 Cardiovascular Disease 05/07/22 Joesph Crowe MD [address] [place] [address] 15615 Surgery 05/07/22 Michelle Padilla, RN Specialty City Marshal Cardiology 07/03/22 Vlad Ramey MD [address] [place] [address] 72832 Assigned Heart and Vascular Provider 07/25/22 05/28/23 Marquise Hanley MD [address] [place] [address] 49[address] Assigned Endocrinology Provider 08/15/22 Wagner Oliver MD [address] [facility] [place] [address] Critical Care 12/15/22 Laura Epperson NP [address] [place] [address] 1932 [place] [address] Assigned Nephrology Provider 02/20/23 08/30/24 Thom Taveras MD [facility] [address], 05 [place] [address] Assigned Cancer Care Provider 02/06/23 08/20/23 Joesph Crowe MD [address] [place] [address] 10593 Surgery 03/17/23 Joesph Crowe MD [address] [place] [address] 15963 Assigned Surgical Provider 04/03/23 09/30/24 Adonay Haq MD 9 [place] [address] Internal Medicine 06/14/23OctoberDenilson MD [address] [place], [place] 456965 Assigned Heart and Vascular Provider 05/29/23 11/28/24 Jason Alvares MD [address] 141595 Assigned Neuroscience Provider 05/15/23 11/28/24 Ruth Riddle DPM, Podiatry/Foot and Ankle Surgery [address] [place], [place] 413467 Assigned Musculoskeletal Provider 10/22/23 Jignesh Mathias MD [address] [place] [address] [phone] Gastroenterology 09/25/24 Adonay Haq MD [address] [place] [address]12 Assigned PCP 10/01/24 12/28/24 Omar Carmona MD [address] [place] [address] 575715 Assigned PCP 12/29/24 Jason Alvares MD [address] [address] Assigned Neuroscience Provider 12/29/24 Jignesh Mathias MD [address] [place] [address] 80135 Assigned Surgical Provider 12/29/24 Ayad Lopez, PhD LP [address] [place] [address] 38141 Assigned Behavioral Health Provider 02/28/25 Gavi Nieto PANavinC [address] [place] [address] [phone] Physician Kettle Cleaner Dermatology 03/19/25 documented as of this encounter
--- OUTSIDE RECORDS SUMMARY | 2025-06-08 22:58 | XMS_ITS | Encounter Summary ---
Author Organization [place] Address [address] [place] [address] 40157 Care Team Providers Care Component Assembler Name Role Phone Rio Jaquez MD Primary Care Provider Barry Kilpatrick MD Unavailable Michelle Henderson RN Unavailable [phone] Rio Jaquez MD Unavailable [phone] Jemima Jaramillo MD Unavailable Unavai Kelley Bautista RN Unavailable [phone] Sydnee Saleem MD Unavailable +[phone] Karlene Moya MD Unavailable [phone] Wilbert Quintero OD Unavailable +[phone] Rod Gauthier DPM Unavailable [phone] Nallely Hogue RN Unavailable Unavailable Larisa Vargas RN Unavailable Unavailable Francisco Lott MD Unavailable +[phone] Greg Ortega MD Unavailable +[phone] Jan Mahmood MD Unavailable +[phone] Brandt Quintana MD Unavailable +[phone] Jan Mahmood MD Unavailable Rio Jaquez [...] Unavailable [phone] Thom Taveras MD Unavailable +[phone] Joesph Crowe MD Unavailable +[phone] Joesph Crowe MD Unavailable +[phone] Adonay Haq MD Unavailable [phone] Denilson Srinivasan MD Unavailable +[phone] Jason Alvares MD Unavailable Ruth RiddleM, Podiatry /Foot and Ankle Surgery Unavailable Omar Carmona MD Primary Care Provider Jignesh Mathias MD Unavailable Adonay Haq MD Unavailable [phone] Omar Carmona MD Unavailable Jason Alvares MD Unavailable Jignesh Mathias MD Unavailable Ayad Lopez PhD Unavailable [phone] Gavi Nieto-Keisha Unavailable [phone] Encounter Details Date Type Department Care Team (Late st Contact Info) Description 02/17/2021 [facility] [address] [place] [address] [phone] ArabellacusterLizbeth Social History Tobacco Use Types Packs/Day Years [...] Sex Assigned at Female 09/12/2020 12:05 PM WAREHOUSE OPERATOR Legal Sex Female 3:26 AM WAREHOUSE OPERATOR Gender Identity Female 09/12/2020 12:05 PM WAREHOUSE OPERATOR Sexual Orientation Straight 12/19/2021 10 :44 [...] st Contact Info) Description 06/13/2025 6:00 PM WAREHOUSE OPERATOR Ancillary Procedure [facility] Center CT Clinic [address]st [place] [phone] Omar Carmona MD [address] [place] [address] [phone] 06/14/2025 4:00 PM WAREHOUSE OPERATOR Office Visit [facility] Care [address] [phone] Omar Carmona MD [address] [place] [address] 047975 06/15/2025 12:45 PM WAREHOUSE OPERATOR Therapy Visit [address] [phone] Jason Alvares MD [address] [place] [address] [phone] Chaya Castillo, OTR [facility] 150 [place] [address] 06/19/2025 10:30 AM WAREHOUSE OPERATOR Virtual Visit [address] [phone] Omar Carmona MD [address] [place] [address] 312795 Gerson Santos RPH 06/26/2025 11:00 AM WAREHOUSE OPERATOR Therapy Visit [facility] 150 [place] [phone] Jason Alvares MD [address] [place] [address] Chaya Castillo OTR [address] [address] 07/09/2025 12:45 PM WAREHOUSE OPERATOR Therapy Visit [facility] Rehabilitation Services [address] [phone] Jason Alvares MD 420 [facility] 295 [place] [address] Chaya Castillo OTR [address] [address] 07/18/2025 3:00 PM WAREHOUSE OPERATOR Office Visit [facility] Heart [address] [phone] Adonay Chapman APRN [address] [address] 11/05/2025 12:30 PM CDT Lab [facility] Lab [address] [phone] 11/05/2025 1:45 PM CDT Office Visit [facility] Dermatology [address] [phone] Gavi Nieto PA-C Dermatology [address] [place] [address] 11/20/2025 10:30 AM CDT Virtual Visit [address] [phone] Marquise Hanley MD [address] [place] [address] 87140 documented as of this encounter Goals Goal [...] Depression Total Score: 12 021 9:43 AM WAREHOUSE OPERATOR documented as of this encounter Care Teams Component Assembler Relationship Specialty Start Date End Date Rio Jaquez MD [address] [place] [address] PCP - General Family Practice 12/02/10 07/13/24 Omar Carmona MD [address] [place] [address] 192985 PCP - General Family Medicine 07/14/24 Barry Kilpatrick MD [address] [place] [address] [id number] [place], [place] 036555 Neurology 07/19/14 Michelle Henderson RN Nurse Coordinator Neurology 07/19/14 Rio Jaquez MD [address] [place] [address] 243235 Family Practice 10/15/14 Jemima Jaramillo MD maintenance pipefitter 11/20/14 Kelley Chin, TANIA [address] 742235 Nurse Coordinator Cardiology 11/04/15 Sydnee Saleem MD [address] [place] [address] 508 [place], [place] 028485 Cardiology 11/04/15 Karlene Moya MD [address] [place] [address] 588695 Ophthalmology 06/24/17 Wilbert Quintero, OD [address] [place] [address] 655895 Optometry 06/24/17 Rod Gauthier DPM [address] [place], [place] [address] Neonatal Critical Care Nurse Primary Podiatric Medicine 06/21/18 Nallely Hogue, RN Registered Nurse 02/20/19 11/23/22 Larisa Vargas, TANIA Specialty Supervisor [employer] Coating Cardiology 04/18/19 03/06/22 Francisco Lott MD [address] [place] [address] 88 [place], [place] 608345 Assigned Rheumatology Provider 05/31/20 12/13/21 Greg Ortega MD [address] [place] [address]176 Assigned Surgical Provider 06/23/20 12/06/21 Jan Mahmood MD [address] [place] [address] 2A [place], [place] 706385 Gastroenterology 11/05/20 Brandt Quintana MD 1414 [place] [address] Resident 11/05/20 Jan Mahmood MD 516 [facility] [address] [place] [address] Assigned Gastroenterology Provider 12/01/20 Rio Jaquez MD 909 [facility] [address] 4 [place] [address] Assigned PCP 11/17/20 09/30/24 Dom Eason MD 717 [facility] 353 [place], [place] 042724 Internal Medicine 12/02/20 Jayla Plaza, RN Specialty Supervisor [employer] Hepatology 01/09/21 02/13/24 Sydnee Saleem MD [address] [place] [address] [phone] Assigned Heart and Vascular Provider 02/02/21 07/24/22 Phan Coello MD Assigned Neuroscience Provider 02/21/21 11/22/21 Cristian Barragan MD [address] [place] [address] Assigned Infectious Disease Provider 02/21/21 03/06/22 Dom Eason MD 717 [facility] 353 [place] [address] Assigned Nephrology Provider 04/20/21 01/02/22 Jaimie Vernon, RN Specialty Supervisor [employer] Cardiology 10/28/21 Ruth Riddle DPM, Podiatry/Foot and Ankle Surgery [address] [place] [address] Assigned Musculoskeletal Provider 11/30/21 09/30/23 Luis Arrington MD [address] [place] [address] Assigned Neuroscience Provider 11/23/21 01/02/22 Jason Alvares MD [address] [place] [address] 10594 Assigned Neuroscience Provider 01/03/22 05/15/22 Marquise Hanley MD [address] [place] [address]44 Endocrinology, Diabetes, and Metabolism 03/05/22 Vlad Ramey MD [address] [place] [address] 20886 Cardiovascular Disease 05/07/22 Joesph Crowe MD [address] [place] [address] 68644 Surgery 05/07/22 Luis Arrington MD [address] [place] [address] 6[address] Assigned Neuroscience Provider 05/16/22 05/14/23 Michelle Padilla RN Specialty Supervisor [employer] Cardiology 07/03/22 Vlad Ramey MD 909 [place] [address] Assigned Heart and Vascular Provider 07/25/22 05/28/23 Marquise Hanley MD 9 [place] [address] Assigned Endocrinology Provider 08/15/22 Dom Eason MD 7 [facility] MICHAEL 353 [place] [address] Assigned Nephrology Provider 11/28/22 02/19/23 Wagner Oliver MD [address] [place] [address] Critical Care 12/15/22 Laura Epperson NP 7 [facility] 1932 [place] [address] Assigned Nephrology Provider 02/20/23 08/30/24 Thom Taveras MD [address], [address] [place] [address] Assigned Cancer Care Provider 02/06/23 08/20/23 Joesph Crowe MD [address] [place] [address]8 Surgery 03/17/23 Joesph Crowe MD [address] [place] [address] 13623 Assigned Surgical Provider 04/03/23 09/30/24 Adonay Haq MD [address] [place] [address]28 Internal Medicine 06/14/23OctoberDenilson MD [address] [facility] [address] [place] [address] Assigned Heart and Vascular Provider 05/29/23 11/28/24 Jason Alvares MD 420 [facility] 295 [place], [place] 642395 Assigned Neuroscience Provider 05/15/23 11/28/24 Ruth Riddle DPM, Podiatry/Foot and Ankle Surgery [address] [place], [place] 621507 Assigned Musculoskeletal Provider 10/22/23 Jignesh Mathias MD [address] [place] [address] 427755 Gastroenterology 09/25/24 Adonay Haq MD [address] [place] [address] Assigned PCP 10/01/24 12/28/24 Omar Carmona MD [address] [place] [address] 8[address] Assigned PCP 12/29/24 Jason Alvares MD [address] [address] Assigned Neuroscience Provider 12/29/24 Jignesh Mathias MD 909 [place] [address] Assigned Surgical Provider 12/29/24 Ayad Lopez, PhD LP [address] [place] [address] Assigned Behavioral Health Provider 02/28/25 Gavi Nieto PA-C [address] [place] [address] Physician Cocoa Bean Roaster Dermatology 03/19/25 documented as of this encounter
--- OUTSIDE RECORDS SUMMARY | 2025-06-08 22:58 | XMS_ITS | Encounter Summary ---
Author Organization [facility] Address [address] [place] [address]143 Care Team Providers Care Channel Partners Name Role Phone Rio Jaquez MD Primary Care Provider Barry Kilpatrick MD Unavailable Michelle Henderson I RN Unavailable [phone] Rio Jaquez MD Unavailable +[phone] Jemima Jaramillo MD Unavailable Unavai Kelley Bautista RN Unavailable +[phone] Sydnee Saleem MD Unavailable +[phone] Karlene Moya MD Unavailable Wilbert Quintero OD Unavailable +[phone] Rod Gauthier DPM Unavailable Jan Mahmood MD Unavailable +[phone] Brandt Quintana MD Unavailable Jan Mahmood MD Unavailable +[phone] Rio Jaquez MD Unavailable +[phone] Dom Eason MD Unavailable Jayla Plaza RN Unavailable +[phone] Jaimie Vernon RN Unavailable Unavailable Ruth Riddle DPM, Podiatry /Foot and Ankle Surgery Unavailable Marquise Hanley MD Unavailable +[phone] Vlad Ramey MD Unavailable +[phone] Joesph Crowe MD Unavailable + [phone] Michelle Padilla RN Unavailable Unavaila ble Marquise Hanley MD Unavailable +[phone] Wagner Oliver MD Unavailable +[phone] Laura Epperson NP Unavailable +[phone] Joesph Crowe MD Unavailable + [phone] Joesph Crowe MD Unavailable + [phone] Adonay Haq MD Unavailable +[phone] OctoberDenilson MD Unavailable + [phone] Jason Alvares MD Unavailable Ruth Riddle DPM, Podiatry /Foot and Ankle Surgery Unavailable Omar Carmona MD Primary Care Provider [phone] Jignesh Mathias MD Unavailable Adonay Haq MD Unavailable +[phone] Omar Carmona MD Unavailable +[phone] Jason Alvares MD Unavailable Jignesh Mathias MD Unavailable Ayad Lopez PhD Unavailable +[phone] Gavi Nieto PA-C Unavailable +[phone] Encounter Details Date Type Department Care Team (Late st Contact Info) Description 08/30/2023 [facility] [address] [facility] [address] [place] [address] Radha Blanco LPN Social History [...] than three times a week 08/27/2021 Attends Scientology Services Not on file 08/27 Do you [...] Answer Date Recorded PHQ-2 Score 2 08/26/2023 [facility] - [facility]ational Stress Questionnaire [...] Sex Assigned at Female 09/12/2020 12:05 PM TRADE PROMOTION ANALYST Legal Sex Female 3:26 AM TRADE PROMOTION ANALYST Gender Identity Female 09/12/2020 12:05 PM TRADE PROMOTION ANALYST Sexual Orientation Straight 12/19/2021 10 :44 AM CDT Occupation Industry Job Start Date Job End Date on disability for FMS Not on file Not on file Not on file disabled Not on file Not on file Not on file documented as of this encounter Plan of Treatment Upcoming Encounters Date Type Department Care Team (Late st Contact Info) Description 06/13/2025 6:00 PM TRADE PROMOTION ANALYST Ancillary Procedure [address] [address] Omar Carmona MD [address] [place] [address] 558455 06/14/2025 4:00 PM TRADE PROMOTION ANALYST Office [facility] Primary Care [address] [phone] Omar Carmona MD [address] [place] [address] [id number] 06/15/2025 12:45 PM TRADE PROMOTION ANALYST Therapy Visit [facility] [address] [place] [phone] Jason Alvares MD [address] [place] [address] 143145 Chaya Castillo, OTR [facility] 150 [place], [place] 072307 06/19/2025 10:30 AM TRADE PROMOTION ANALYST Virtual Visit [facility] Care [address] [phone] Omar Carmona MD [address] [place] [address] [phone] Gerson Santos [facility] 06/26/2025 11:00 AM TRADE PROMOTION ANALYST Therapy Visit [facility] [address] [place] [phone] Jason Alvares MD [address] [place] [address] 860685 Chaya Castillo, OTR [facility] 150 [place] [address] 07/09/2025 12:45 PM TRADE PROMOTION ANALYST Therapy [facility] Rehabilitation Services [facility] [address] [place] [phone] Jason Alvares MD 420 [facility] 295 [place] [address] Chaya Castillo, OTR [facility] 150 [place] [address] 07/18/2025 3:00 PM TRADE PROMOTION ANALYST Office [facility] Heart [address] [phone] Adonay Chapman APRN [facility] 500 [place] [address] 11/05/2025 12:[address] [facility] Lab [address] [place] [phone] 11/05/2025 1:45 PM CDT Office [facility] Dermatology [address] 3rd [place] [phone] Gavi Nieto PANavinC Dermatology [address] [place] [address] 11/20/2025 10:30 AM CDT Virtual Visit [address] [address] Marquise Hanley MD [address] [place] [address] 075915 documented as of this encounter Goals Goal [...] Total Score: 9 06/14/20 23 7:18 AM TRADE PROMOTION ANALYST documented as of this encounter Care Teams Channel Partners Relationship Specialty Start Date End Date Rio Jaquez MD [address] [place] [address] 13310 PCP - General Family Practice 12/02/10 07/13/24 Omar Carmona MD [address] [place] [address] 22126 PCP - General Family Medicine 07/14/24 Barry Kilpatrick MD [address] [place] [address] [id number] [place], [place] 736665 Neurology 07/19/14 Michelle Henderson I, TANIA Nurse Coordinator Neurology 07/19/14 Rio Jaquez MD [address] [place] [address] 438495 Family Practice 10/15/14 Jemima Jaramillo MD engineering leader 11/20/14 Kelley Chin, TANIA [address] [phone] Nurse Coordinator Cardiology 11/04/15 Sydnee Saleem MD 420 [facility] 508 [place], [place] 837025 Cardiology 11/04/15 Karlene Moya MD 516 [place], [place] 107925 MD Ophthalmology 06/24/17 Wilbert Quintero, OD 909 [place], [place] 348075 Optometry 06/24/17 Rod Gauthier DPM 909 [place], [place] 209515 Lpn Home Health Primary Podiatric Medicine 06/21/18 Jan Mahmood MD 6 [facility] 2A [place], [place] 683935 MD Gastroenterology 11/05/20 Brandt Quintana MD [facility] [place] [address] Resident 11/05/20 Jan Mahmood MD 6 [facility] 2A [place], [place] 240175 Assigned Gastroenterology Provider 12/01/20 Rio Jaquez MD 909 [facility] [place] 4 [place], [place] 095815 Assigned PCP 11/17/20 09/30/24 Dom Eason MD 717 [facility] 353 [place], [place] 997994 Internal Medicine 12/02/20 Jayla Plaza, RN Specialty Metal Melter Hepatology 01/09/21 02/13/24 Jaimie Vernon, TANIA Specialty Metal Melter Cardiology 10/28/21 Ruth Riddle, DPM, Podiatry/Foot and Ankle Surgery [address] [place] [address] Assigned Musculoskeletal Provider 11/30/21 09/30/23 Marquise Hanley MD [address] [place] [address]1497 Endocrinology, Diabetes, and Metabolism 03/05/22 Vlad Ramey MD [address] [place] [address] [phone] Cardiovascular Disease 05/07/22 Jeosph Crowe MD [address] [place] [address] 75032 MD Surgery 05/07/22 Michelle Padilla RN Specialty Metal Melter Cardiology 07/03/22 Marquise Hanley MD [address] [place] [address] 15599 Assigned Endocrinology Provider 08/15/22 Wagnre Oliver MD [address] [place] [address] Critical Care 12/15/22 Laura Epperson NP 717 [facility] 1932 [place] [address] Assigned Nephrology Provider 02/20/23 08/30/24 Joesph Crowe MD [address] [place] [address] 20891 MD Surgery 03/17/23 Joesph Crowe MD [address] [place] [address] 41415 Assigned Surgical Provider 04/03/23 09/30/24 Adonay Haq MD [address] [place] [address] [phone] Internal Medicine 06/14/23OctoberDenilson MD [address] [facility]00 [place], [place] 074185 Assigned Heart and Vascular Provider 05/29/23 11/28/24 Jason Alvares MD [address] [place] [address] [phone] Assigned Neuroscience Provider 05/15/23 11/28/24 Ruth Riddle DPM, Podiatry/Foot and Ankle Surgery [address] [place] [address] [place] [address] Assigned Musculoskeletal Provider 10/22/23 Jignesh Mathias MD [address] [place] [address] [phone] Gastroenterology 09/25/24 Adonay Haq MD [address] [place] [address] 566475 Assigned PCP 10/01/24 12/28/24 Omar Carmona MD [address] [place] [address] 55455 Assigned PCP 12/29/24 Jason Alvares MD [address] [place] [address]455 Assigned Neuroscience Provider 12/29/24 Jignesh Mathias MD [address] [place] [address]455 Assigned Surgical Provider 12/29/24 Ayad Lopez, PhD LP [address] [place] [address] Assigned Behavioral Health Provider 02/28/25 Gavi Nieto PA-C [address] [place] [address] [phone] Physician Clutch Inspector Dermatology 03/19/25 documented as of this encounter
--- OUTSIDE RECORDS SUMMARY | 2025-06-08 22:58 | XMS_ITS | Encounter Summary ---
Author Organization [facility] Address [address] [place] [address] Care Team Providers Care Lining Brusher Name Role Phone Rio Jaquez MD Primary Care Provider Barry Kilpatrick MD Unavailable Michelle Henderson I RN Unavailable [phone] Rio Jaquez MD Unavailable [phone] Jemima Jaramillo MD Unavailable Unavai Kelley Bautista RN Unavailable [phone] Sydnee Saleem MD Unavailable [phone] Karlene Moya MD Unavailable Wilbert Quintero OD Unavailable +[phone] Rod Gauthier DPM Unavailable Jan Mahmood MD Unavailable [phone] Brandt Quintana MD Unavailable Jan Mahmood MD Unavailable +[phone] Rio Jaquez MD Unavailable [phone] Dom Eason MD Unavailable Jayla Plaza RN Unavailable +[phone] Jaimie Vernon RN Unavailable Unavailable Ruth RiddleM, Podiatry /Foot and Ankle Surgery Unavailable Marquise Hanley MD Unavailable +[phone] Vlad Ramey MD Unavailable +[phone] Joesph Crowe MD Unavailable + [phone] Michelle Padilla RN Unavailable Unavaila ble Marquise Hanley MD Unavailable +[phone] Wagner Oliver MD Unavailable +[phone] Laura Epperson NP Unavailable +[phone] Thom Taveras MD Unavailable +[phone] Joesph Crowe MD Unavailable + [phone] Joesph Crowe MD Unavailable + [phone] Adonay Haq MD Unavailable [phone] Denilson Srinivasan MD Unavailable + [phone] Jason Alvares MD Unavailable Ruth Riddle DPM, Podiatry /Foot and Ankle Surgery Unavailable Omar Carmona MD Primary Care Provider [phone] Jignesh Mathias MD Unavailable Adonay Haq MD Unavailable +[phone] Omar Carmona MD Unavailable +[phone] Jason Alvares MD Unavailable Jignesh Mathias MD Unavailable Ayad Lopez PhD LP Unavailable [phone] Gavi Nieto PA-C Unavailable [phone] Encounter Details Date Type Department Care Team (Late st Contact Info) Description 07/27/2023 MyC Medical Advice [facility] [address] 4th [place] [address] Rio Jaquez MD 909 [facility] 4 [place] [address] Social History Tobacco Use Types Packs/Day Years [...] than three times a week 08/27/2021 Attends Mormon Services Not on file 08/27 Do you [...] Answer Date Recorded PHQ-2 Score 2 06/14/2023 [facility] [place] [facility] ional Health - Occupational Stress [...] Sex Assigned at Female 09/12/2020 12:05 PM CASSANDRA DEVELOPER Legal Sex Female 3:26 AM CASSANDRA DEVELOPER Gender Identity Female 09/12/2020 12:05 PM CASSANDRA DEVELOPER Sexual Orientation Straight 12/19/2021 10 :44 AM CDT Occupation Industry Job Start Date Job End Date on disability for FMS Not on file Not on file Not on file disabled Not on file Not on file Not on file documented as of this encounter Miscellaneous Notes * Telephone Encounter - Rio Jaquez MD - 07/29/2023 2:17 PM CASSANDRA DEVELOPER July 29, 2023 Could consider second opinion through [facility]. Ask for cardiac congenital heart clinic. [phone] or [email or web address] Rio Jaquze MD ANDRA DEVELOPER documented in this encounter Plan of Treatment Upcoming Encounters Date Type Department Care Team (Late st Contact Info) Description 06/13/2025 6:00 PM CASSANDRA DEVELOPER Ancillary Procedure [facility] CT Clinic [address] [phone] Omar Carmona MD [address] [place] [address] 544505 06/14/2025 4:00 PM CASSANDRA DEVELOPER Office Visit [facility] Primary Care [address] [phone] Omar Carmona MD [address] [place] [address] [phone] 06/15/2025 12:45 PM CASSANDRA DEVELOPER Therapy Visit [facility] Rehabilitation Services [address] [phone] Jason Alvares MD [address] [place] [address] 250645 Chaya Castillo, OTR [facility] 150 [place] [address] 06/19/2025 10:30 AM CASSANDRA DEVELOPER Virtual Visit [facility] Care [address] [phone] Omar Carmona MD [address] [place] [address] [phone] Gerson Santos, MORENO 06/26/2025 11:00 AM CASSANDRA DEVELOPER Therapy Visit [facility] 150 [place] [phone] Jason Alvares MD [address] [place] [address] [phone] Chaya Castillo, OTR [facility] [address] [address] 07/09/2025 12:45 PM CASSANDRA DEVELOPER Therapy Visit [address] [phone] Jason Alvares MD [address] [place] [address] Chaya Castillo, OTR [facility] [address] [address] 07/18/2025 3:00 PM CASSANDRA DEVELOPER Office Visit [facility] Heart Clinic [address] [phone] Adonay Chapman APRN [facility] 500 [place], [place] 588315 11/05/2025 12:30 PM CDT Lab [facility] Lab [address] 1st [place] [phone] 11/05/2025 1:45 PM CDT Office Visit [facility] Dermatology Clinic [address] 3rd [place] [phone] Gavi Nieto PA-C Dermatology [address] [place] [address] [phone] 11/20/2025 10:30 AM CDT Virtual Visit [address] [address] Marquise Hanley MD 9 [place] [address] documented as of this encounter Goals Goal [...] Total Score: 9 06/14/20 23 7:18 AM CASSANDRA DEVELOPER documented as of this encounter Care Teams Lining Brusher Relationship Specialty Start Date End Date Rio Jaquez MD [address] [place] [address] 30269 PCP - General Family Practice 12/02/10 07/13/24 Omar Carmona MD [address] [place] [address] 77816 PCP - General Family Medicine 07/14/24 Barry Kilpatrick MD [address] [place] [address] [id number] [place] [address] Neurology 07/19/14 Michelle Henderson I, RN Nurse Coordinator Neurology 07/19/14 Rio Jaquez MD 9[address] [facility] [address] 4 [place] [address] Family Practice 10/15/14 Jemima Jaramillo MD battery assembler dry cell 11/20/14 Kelley Chin RN [facility] [address] [place] [address] 860905 Nurse Coordinator Cardiology 11/04/15 Sydnee Saleem MD 420 [facility] 508 [place], [place] 290425 Cardiology 11/04/15 Karlene Moya MD [address] [place] [address] 857865 Ophthalmology 06/24/17 Wilbert Quintero OD [address] [place] [address] [phone] Optometry 06/24/17 Rod Gauthier DPM [address] [place] [address] Under Sheriff Primary Podiatric Medicine 06/21/18 Jan Mahmood MD [address] [place] [address] 2A [place] [address] Gastroenterology 11/05/20 Brandt Quintana MD [address] [place] [address]25 Resident 11/05/20 Jan Mahmood MD [address] [place] [address] Assigned Gastroenterology Provider 12/01/20 Rio Jaquez MD [address] [place] [address] 4 [place] [address] Assigned PCP 11/17/20 09/30/24 Dom Eason MD [address] [place] [address] 353 [place] [address] Internal Medicine 12/02/20 Jayla Plaza, RN Specialty Automatic Casting Machine Operator Hepatology 01/09/21 02/13/24 Jaimie Vernon, TANIA Specialty Automatic Casting Machine Operator Cardiology 10/28/21 Ruth Riddle DPM, Podiatry/Foot and Ankle Surgery 78298 [facility] 300 [place] [address] Assigned Musculoskeletal Provider 11/30/21 09/30/23 Marquise Hanley MD [address] [place] [address] 10551 Endocrinology, Diabetes, and Metabolism 03/05/22 Vlad Ramey MD [address] [place] [address] 12772 Cardiovascular Disease 05/07/22 Joesph Crowe MD [address] [place] [address] 30184 Surgery 05/07/22 Michelle Padilla, RN Specialty Automatic Casting Machine Operator Cardiology 07/03/22 Marquise Hanley MD 9 [place] [address] Assigned Endocrinology Provider 08/15/22 Wagner Oliver MD [address] [place] [address] Critical Care 12/15/22 Laura Epperson, LULU 717 [facility] 1932 [place] [address] Assigned Nephrology Provider 02/20/23 08/30/24 Thom Taveras MD [address], [address] [place] [address] Assigned Cancer Care Provider 02/06/23 08/20/23 Joesph Crowe MD [address] [place] [address] Surgery 03/17/23 Joesph Crowe MD [address] [place] [address] 59874 Assigned Surgical Provider 04/03/23 09/30/24 Adonay Haq MD [address] [place] [address] Internal Medicine 06/14/23OctoberDenilson MD [address] [facility] [address] [place] [address] Assigned Heart and Vascular Provider 05/29/23 11/28/24 Jason Alvares MD 420 [facility] 295 [place], [place] 823985 Assigned Neuroscience Provider 05/15/23 11/28/24 Ruth Riddle DPM, Podiatry/Foot and Ankle Surgery [address] [place] [address] Assigned Musculoskeletal Provider 10/22/23 Jignesh Mathias MD [address] [place] [address] [phone] Gastroenterology 09/25/24 Adonay Haq MD [address] [place] [address] 129365 Assigned PCP 10/01/24 12/28/24 Omar Carmona MD [address] [place] [address] 495655 Assigned PCP 12/29/24 Jason Alvares MD [address] [place] [address] 295 [place], [place] 448695 Assigned Neuroscience Provider 12/29/24 Jignesh Mathias MD [address] [place] [address]12 Assigned Surgical Provider 12/29/24 Ayad Lopez, PhD LP [address] [place] [address] 788395 Assigned Behavioral Health Provider 02/28/25 Gavi Nieto PA-C [address] [place] [address] Physician Director On Air Dermatology 03/19/25 documented as of this encounter
--- OUTSIDE RECORDS SUMMARY | 2025-06-08 22:58 | XMS_ITS | Encounter Summary ---
Author Organization [place] Address [address] [place] [address] Care Team Providers Care Transactional Paralegal Name Role Phone Rio Jaquez MD Primary Care Provider Barry Kilpatrick MD Unavailable Michelle Henderson RN Unavailable [phone] Rio Jaquez MD Unavailable +[phone] Jemima Jaramillo MD Unavailable Unavai Kelley Bautista RN Unavailable [phone] Sydnee Saleem MD Unavailable +[phone] Karlene Moya MD Unavailable [phone] Wilbert Quintero OD Unavailable +[phone] Rod Gauthier DPM Unavailable [phone] Nallely Hogue RN Unavailable Unavailable Larisa Vargas RN Unavailable Unavailable Francisco Lott MD Unavailable +[phone] Greg Ortega MD Unavailable +[phone] Jan Mahmood MD Unavailable [phone] Brandt Quintana MD Unavailable +[phone] Jan Mahmood MD Unavailable Rio Jaquez [...] MD Unavailable Joesph Crowe MD Unavailable [phone] Joesph Crowe MD Unavailable +[phone] Adonay Haq MD Unavailable [phone] Denilson Srinivasan MD Unavailable [phone] Jason Alvares MD Unavailable Ruth RiddleM, Podiatry /Foot and Ankle Surgery Unavailable Omar Carmona MD Primary Care Provider Jignesh Mathias MD Unavailable Adonay Haq MD Unavailable [phone] Omar Carmona MD Unavailable [phone] Jason Alvares MD Unavailable Jignesh Mathias MD Unavailable Ayad Lopez PhD LP Unavailable [phone] Gavi Nieto-C Unavailable [phone] Encounter Details Date Type Department Care Team (Latest Contact Info) Description 02/25/2021 [facility] [place] [facility] [facility] [address] [place] [address] Rio Jaquez MD [address] [place] [address] Subdural hematoma (H) (Primary Dx); Diffuse [...] Sex Assigned at Female 09/12/2020 12:05 PM VERIFIER OPERATOR Legal Sex Female 3:26 AM VERIFIER OPERATOR Gender Identity Female 09/12/2020 12:05 PM VERIFIER OPERATOR Sexual Orientation Straight 12/19/2021 10 :44 [...] st Contact Info) Description 06/13/2025 6:00 PM VERIFIER OPERATOR Ancillary Procedure [facility] [address] [phone] Omar Carmona MD [address] [place] [address] [phone] 06/14/2025 4:00 PM VERIFIER OPERATOR Office Visit [facility] [address] [phone] Omar Carmona MD [address] [place] [address] 707135 06/15/2025 12:45 PM VERIFIER OPERATOR Therapy Visit [facility] [address] [phone] Jason Alvares MD [address] [facility] 295 [place], [place] [phone] Chaya Castillo, OTR [address] [address] 06/19/2025 10:30 AM VERIFIER OPERATOR Virtual Visit [facility] [address] [phone] Omar Carmona MD [address] [place] [address] [phone] Gerson Santos RPH 06/26/2025 11:00 AM VERIFIER OPERATOR Therapy Visit [facility] [address] [place] [phone] Jason Alvares MD [address] [place] [address] Chaya Castillo OTR [facility] 150 [place] [address] 07/09/2025 12:45 PM VERIFIER OPERATOR Therapy Visit [facility] 150 [place] [phone] Jason Alvares MD [address] [place] [address] Chaya Castillo OTR [address] [address] 07/18/2025 3:00 PM VERIFIER OPERATOR Office Visit [facility] [address] [phone] Adonay Chapman APRN [address] [address] 11/05/2025 12:30 PM CDT Lab [facility] [address] [phone] 11/05/2025 1:45 PM CDT Office Visit [facility] [address] [address] Gavi Nieto PA-C Dermatology [address] [place] [address] 11/20/2025 10:30 AM CDT Virtual Visit [address] [place] [address] Marquise Hanley MD [address] [place] [address] 048065 documented as of this encounter Goals Goal [...] Depression Total Score: 12 021 9:43 AM VERIFIER OPERATOR documented as of this encounter Care Teams Transactional Paralegal Relationship Specialty Start Date End Date Rio Jaquez MD [address] [place] [address] PCP - General Family Practice 12/02/10 07/13/24 Omar Carmona MD [address] [place] [address] 42093 PCP - General Family Medicine 07/14/24 Barry Kilpatrick MD [address] [place] [address] [id number] [place] [address] Neurology 07/19/14 Michelle Henderson RN Nurse Coordinator Neurology 07/19/14 Rio Jaquez MD 909 [facility] 4 [place], [place] 151055 Family Practice 10/15/14 Jemima Jaramillo MD winter sports manager 11/20/14 Kelley Chin, TANIA [facility] [address] [place] [address] 779715 Nurse Coordinator Cardiology 11/04/15 Sydnee Saleem MD [address] [place] [address] 508 [place], [place] 577485 Cardiology 11/04/15 Karlene Moya MD [address] [place] [address] 449615 Ophthalmology 06/24/17 Wilbert Quintero, OD [address] [place] [address] 835855 Optometry 06/24/17 Rod Gauthier DPM [address] [place] [address] [phone] Power Screwdriver Operator Primary Podiatric Medicine 06/21/18 Nallely Hogue, RN Registered Nurse 02/20/19 11/23/22 Larisa Vargas, TANIA Specialty Attorney Recruiter Cardiology 04/18/19 03/06/22 Francisco Lott MD [address] [place] [address] 764195 Assigned Rheumatology Provider 05/31/20 12/13/21 Greg Ortega MD [address] [place] [address] 761465 Assigned Surgical Provider 06/23/20 12/06/21 Jan Mahmood MD [address] [facility] 2A [place] [address] Gastroenterology 11/05/20 Brandt Quintana MD [address] [place] [address] Resident 11/05/20 Jan Mahmood MD 6 [facility] 2A [place] [address] Assigned Gastroenterology Provider 12/01/20 Rio Jaquez MD 9 [facility] 4 [place] [address] Assigned PCP 11/17/20 09/30/24 Dom Eason MD 7 [facility] 353 [place] [address] Internal Medicine 12/02/20 Jayla Plaza, RN Specialty Attorney Recruiter Hepatology 01/09/21 02/13/24 Sydnee Saleem MD 6550 [facility] [address] [place] [address] [phone] Assigned Heart and Vascular Provider 02/02/21 07/24/22 Phan Coello MD Assigned Neuroscience Provider 02/21/21 11/22/21 Cristian Barragan MD [address] [place] [address] Assigned Infectious Disease Provider 02/21/21 03/06/22 Dom Eason MD 717 [facility] 353 [place] [address] Assigned Nephrology Provider 04/20/21 01/02/22 Jaimie Vernon, TANIA Specialty Attorney Recruiter Cardiology 10/28/21 Ruth Riddle DPM, Podiatry/Foot and Ankle Surgery [address] [facility] [facility] 300 [place] [address] Assigned Musculoskeletal Provider 11/30/21 09/30/23 Luis Arrington MD [address] [place] [address]37 Assigned Neuroscience Provider 11/23/21 01/02/22 Jason Alvares MD [address] [facility] 295 [place], [place] 466485 Assigned Neuroscience Provider 01/03/22 05/15/22 Marquise Hanley MD [address] [place] [address] Endocrinology, Diabetes, and Metabolism 03/05/22 Vlad Ramey MD [address] [place] [address] 92864 Cardiovascular Disease 05/07/22 Joesph Crowe MD [address] [place] [address] 21990 Surgery 05/07/22 Luis Arrington MD [address] [place] [address] 85741 Assigned Neuroscience Provider 05/16/22 05/14/23 Michelle Padilla, RN Specialty Attorney Recruiter Cardiology 07/03/22 Vlad Ramey MD [address] [place] [address] 308105 Assigned Heart and Vascular Provider 07/25/22 05/28/23 Marquise Hanley MD [address] [place] [address] 942465 Assigned Endocrinology Provider 08/15/22 Dom Eason MD 717 [facility] [address] [place], [place] 724934 Assigned Nephrology Provider 11/28/22 02/19/23 Wagner Oliver MD 6401 [facility] [address] Critical Care 12/15/22 Laura Epperson NP 7 [facility] [address] [place] [address] Assigned Nephrology Provider 02/20/23 08/30/24 Thom Taveras MD [facility] [address] [place], [place] 419214 Assigned Cancer Care Provider 02/06/23 08/20/23 Joesph Crowe MD [address] [place] [address] 834165 Surgery 03/17/23 Joesph Crowe MD [address] [place] [address] 71017 Assigned Surgical Provider 04/03/23 09/30/24 Adonay Haq MD [address] [place] [address] 65492 Internal Medicine 06/14/23October, Denilson Jackson MD 6[address] [facility] [place] [phone] [place] [address] Assigned Heart and Vascular Provider 05/29/23 11/28/24 Jason Alvares MD [address] [place] [address] 19949 Assigned Neuroscience Provider 05/15/23 11/28/24 Ruth Riddle DPM, Podiatry/Foot and Ankle Surgery [address] [facility] [address] [place] [address] Assigned Musculoskeletal Provider 10/22/23 Jignesh Mathias MD [address] [place] [address] 11445 Gastroenterology 09/25/24 Adonay Haq MD [address] [place] [address] 22043 Assigned PCP 10/01/24 12/28/24 Omar Carmona MD [address] [place] [address] 82830 Assigned PCP 12/29/24 Jason Alvares MD [address] [address] Assigned Neuroscience Provider 12/29/24 Jignesh Mathias MD [address] [place] [address] 55455 Assigned Surgical Provider 12/29/24 Ayad Lopez, PhD LP [address] [place] [address] Assigned Behavioral Health Provider 02/28/25 Gavi Nieto, PA-C [address] [place] [address] Physician It Consultant Dermatology 03/19/25 documented as of this encounter
--- OUTSIDE RECORDS SUMMARY | 2025-06-08 22:58 | XMS_ITS | Encounter Summary ---
Author Organization [place] Address [address] [place] [address] Care Team Providers Care Dyno Technician Name Role Phone Rio Jaquez MD Primary Care Provider Barry Kilpatrick MD Unavailable Michelle Henderson I RN Unavailable Rio Jaquez MD Unavailable [phone] Jemima Jaramillo MD Unavailable Unavai Kelley Bautista RN Unavailable [phone] Sydnee Saleem MD Unavailable [phone] Karlene Moya MD Unavailable Wilbert Quintero OD Unavailable [phone] Rod Gauthier DPM Unavailable Jan Mahmood MD Unavailable [phone] Brandt Quintana MD Unavailable [phone] Jan Mahmood MD Unavailable [phone] Rio Jaquez MD Unavailable [phone] Dom Eason MD Unavailable Jayla Plaza RN Unavailable [phone] Jaimie Vernon RN Unavailable Unavailable Ruth RiddleM, Podiatry /Foot and Ankle Surgery Unavailable Marquise Hanley MD Unavailable [phone] Vlad Ramey MD Unavailable +[phone] Joesph Crowe MD Unavailable + [phone] Michelle Padilla RN Unavailable Unavaila ble Marquise Hanley MD Unavailable [phone] Wagner Oliver MD Unavailable [phone] Laura Epperson NP Unavailable [phone] Thom Taveras MD Unavailable [phone] Joesph Crowe MD Unavailable + [phone] Joesph Crowe MD Unavailable + [phone] Adonay Haq MD Unavailable [phone] Denilson Srinivasan MD Unavailable + [phone] Jason Alvares MD Unavailable Ruth Riddle DPM, Podiatry /Foot and Ankle Surgery Unavailable Omar Carmona MD Primary Care Provider [phone] Jignesh Mathias MD Unavailable Adonay Haq MD Unavailable +[phone] Omar Carmona MD Unavailable [phone] Jason Alvares MD Unavailable Jignesh Mathias MD Unavailable Ayad Lopez PhD LP Unavailable [phone] Gavi Nieto PA-C Unavailable [phone] Encounter Details Date Type Department Care Team (Late st Contact Info) Description 06/07/2023 [facility] Medical Advice [facility] [address] 4th [place] [address] Rio Jaquez MD 909 [facility] 4 [place] [address] Social History Tobacco Use Types Packs/Day Years [...] Score 2 03/15/2023 [facility]ational Stress Questionnaire Answer Date [...] in an overnight fdc, or couch-surfing.) Yes 06/06/2023 Are you worried [...] Sex Assigned at Female 09/12/2020 12:05 PM CARDIAC NURSE PRACTITIONER Legal Sex Female 3:26 AM CARDIAC NURSE PRACTITIONER Gender Identity Female 09/12/2020 12:05 PM CARDIAC NURSE PRACTITIONER Sexual Orientation Straight 12/19/2021 10 :44 AM [...] st Contact Info) Description 06/13/2025 6:00 PM CARDIAC NURSE PRACTITIONER Ancillary Procedure [facility] CT Clinic [address] [phone] Omar Carmona MD [address] [place] [address] 131155 06/14/2025 4:00 PM CARDIAC NURSE PRACTITIONER Office Visit [facility] [address] [phone] Omar Carmona MD [address] [place] [address] 83147455 06/15/2025 12:45 PM CARDIAC NURSE PRACTITIONER Therapy Visit [facility] [address] [phone] Jason Alvares MD [address] [place] [address] 295 [place], [place] 608895 Chaya Castillo, OTR [facility] 150 [place] [address] 06/19/2025 10:30 AM CARDIAC NURSE PRACTITIONER Virtual Visit [facility] [address] [phone] Omar Carmona MD [address] [place] [address] [phone] Gerson Santos, MORENO 06/26/2025 11:00 AM CARDIAC NURSE PRACTITIONER Therapy Visit [facility] 150 [place] [phone] Jason Alvares MD [address] [place] [address] 054865 [facility] [address] [place] [address] 07/09/2025 12:45 PM CARDIAC NURSE PRACTITIONER Therapy Visit [address] [phone] Jason Alvares MD [address] [place] [address] Chaya Castillo, OTR [facility] [address] [address] 07/18/2025 3:00 PM CARDIAC NURSE PRACTITIONER Office Visit [facility] [address] [phone] Adonay Chapman APRN [address] 970425 11/05/2025 12:30 PM CDT Lab [facility] [address]st [place] [phone] 11/05/2025 1:45 PM CDT Office Visit [facility] [address]rd [place] [phone] Gavi Nieto PA-C Dermatology [address] [place] [address] [phone] 11/20/2025 10:30 AM CDT Virtual Visit [address] [address] Marquise Hanley MD 9 [place] [address] documented as of this encounter Goals Goal [...] documented as of this encounter Care Teams Dyno Technician Relationship Specialty Start Date End Date Rio Jaquez MD [address] [place] [address] 4 [place] [address] PCP - General Family Practice 12/02/10 07/13/24 Omar Carmona MD [address] [place] [address] 10450 PCP - General Family Medicine 07/14/24 Barry Kilpatrick MD [address] [place] [address] LN1946SY [place] [address] Neurology 07/19/14 Michelle Henderson I RN Nurse Coordinator Neurology 07/19/14 Rio Jaquez MD 909 [facility] 4 [place] [address] Family Practice 10/15/14 Jemima Jaramillo MD fruit canner 11/20/14 Kelley Chin, TANIA [facility] 909 [place], [place] 025295 Nurse Coordinator Cardiology 11/04/15 Sydnee Saleem MD 420 [facility] 508 [place], [place] 262415 Cardiology 11/04/15 Karlene Moya MD [address] [place] [address] 360715 Ophthalmology 06/24/17 Wilbert Quintero OD [address] [place] [address] 118065 Optometry 06/24/17 Rod Gauthier DPM [address] [place] [address] 143095 Senior Portfolio Analyst Primary Podiatric Medicine 06/21/18 Jan Mahmood MD [address] [place] [address] 2A [place] [address] Gastroenterology 11/05/20 Brandt Quintana MD [address] [place] [address] Resident 11/05/20 Jan Mahmood MD [address] [place] [address] 2A [place] [address] Assigned Gastroenterology Provider 12/01/20 Rio Jaquez MD [address] [place] [address] 4 [place] [address] Assigned PCP 11/17/20 09/30/24 Dom Eason MD [address] [place] [address] 353 [place] [address] Internal Medicine 12/02/20 Jayla Plaza, RN Specialty [place] Hepatology 01/09/21 02/13/24 Jaimie Vernon, TANIA Specialty [place] Cardiology 10/28/21 Ruth Riddle DPM, Podiatry/Foot and Ankle Surgery [address] [address] Assigned Musculoskeletal Provider 11/30/21 09/30/23 Marquise Hanley MD [address] [place] [address] 27801 Endocrinology, Diabetes, and Metabolism 03/05/22 Vlad Ramey MD [address] [place] [address] 52540 Cardiovascular Disease 05/07/22 Joesph Crowe MD [address] [place] [address] 90359 Surgery 05/07/22 Michelle Padilla, RN Specialty [place] Cardiology 07/03/22 Marquise Hanley [place] [address] Assigned Endocrinology Provider 08/15/22 Wagner Oliver MD [address] [place] [address] Critical Care 12/15/22 Laura Epperson, LULU 717 [facility] 1932 [place] [address] Assigned Nephrology Provider 02/20/23 08/30/24 Thom Taveras MD [address] [place] [address] Assigned Cancer Care Provider 02/06/23 08/20/23 Joesph Crowe MD [address] [place] [address] 20113 Surgery 03/17/23 Joesph Crowe MD [address] [place] [address] 80132 Assigned Surgical Provider 04/03/23 09/30/24 Adonay Haq MD [address] [place] [address] Internal Medicine 06/14/23OctoberDenilson MD 6[address] [facility] [address] [place] [address] Assigned Heart and Vascular Provider 05/29/23 11/28/24 Jason Alvares MD 420 [facility] 295 [place], [place] 718005 Assigned Neuroscience Provider 05/15/23 11/28/24 Ruth Riddle DPM, Podiatry/Foot and Ankle Surgery [address] R[place] [address] [place] [address] 121787 Assigned Musculoskeletal Provider 10/22/23 Jignesh Mathias MD [address] [place] [address] 745315 Gastroenterology 09/25/24 Adonay Haq MD [address] [place] [address] 922195 Assigned PCP 10/01/24 12/28/24 Omar Carmona MD [address] [place] [address] 006535 Assigned PCP 12/29/24 Jason Alvares MD [address] [place] [address] 295 [place], [place] 781855 Assigned Neuroscience Provider 12/29/24 Jignesh Mathias MD [address] [place] [address] 85758 Assigned Surgical Provider 12/29/24 Ayad Lopez, PhD LP [address] [place] [address] 828455 Assigned Behavioral Health Provider 02/28/25 Gavi Nieto, PA-C [address] [place] [address] Physician Home Care Coordinator Dermatology 03/19/25 documented as of this encounter
--- NOTE | 2025-06-08 22:59 | CRLHL7_ITS ---
For Patients: As a result of the Century Cures Act, medical imaging exams and procedure reports are released immediately into your electronic medical record. You may view this report before your referring provider. If you have questions, please contact your health care provider. INDICATION: Right upper quadrant abdominal pain. TECHNIQUE: Ultrasound abdomen limited. Sonographic images of the gallbladder were obtained using quiñonez-scale and color Doppler images. COMPARISON: CT abdomen and pelvis 05/14/2024. FINDINGS: Gallbladder: Gallstones. Mild wall thickening measuring 5 mm, however accentuated by contracted state. No pericholecystic fluid. Negative sonographic De La Vega`s sign. Common bile duct: 4 mm. IMPRESSION: 1. Cholelithiasis without sonographic evidence to suggest cholecystitis. 2. Mild gallbladder wall thickening, likely accentuated by contracted state. Dictated by Avery Kam MD @ 06/09/2025 12:59:28 AM (Electronically Signed)
--- OUTSIDE RECORDS SUMMARY | 2025-06-08 22:59 | XMS_ITS | Encounter Summary ---
Author Organization [facility] Address [address] [place] [address] Care Team Providers Care Sewer Head Name Role Phone Rio Jaquez MD Primary Care Provider Barry Kilpatrick MD Unavailable Michelle Henderson RN Unavailable [phone] Rio Jaquez MD Unavailable [phone] Jemima Jaramillo MD Unavailable Unavai Kelley Bautista RN Unavailable [phone] Sydnee Saleem MD Unavailable +[phone] Karlene Moya MD Unavailable [phone] Wilbert Quintero OD Unavailable +[phone] Rod Gauthier DPM Unavailable +[phone] Nallely Hogue RN Unavailable Unavailable Larisa Vargas RN Unavailable Unavailable Francisco Lott MD Unavailable +[phone] Greg Ortega MD Unavailable [phone] Jan Mahmood MD Unavailable [phone] Brandt Quintana MD Unavailable +[phone] Jan Mahmood MD Unavailable Rio Jaquez MD Unavailable +[phone] Dom Eason MD Unavailable Jayla Plaza RN Unavailable Sydnee Saleem MD Unavailable Phan Coello MD Unavailable Unavailable Cristian Barragan MD Unavailable Dom Eason MD Unavailable Jaimie Venron RN Unavailable Unavailable Ruth Riddle DPM, Podiatry [...] MD Unavailable Joesph Crowe MD Unavailable [phone] Joesph Crowe MD Unavailable +[phone] Adonay Haq MD Unavailable [phone] Denilson Srinivasan MD Unavailable [phone] Jason Alvares MD Unavailable Ruth RiddleM, Podiatry /Foot and Ankle Surgery Unavailable Omar Carmona MD Primary Care Provider Jignesh Mathias MD Unavailable Adonay Haq MD Unavailable [phone] Omar Carmona MD Unavailable Jason Alvares MD Unavailable Jignesh Mathias MD Unavailable Ayad Lopez PhD LP Unavailable [phone] Gavi Nieto-C Unavailable [phone] Encounter Details Date Type Department Care Team (Late st Contact Info) Description 02/07/2021 [facility] Neurology Clinic [address] [phone] Phan Coello MD Social History Tobacco Use [...] Sex Assigned at Female 09/12/2020 12:05 PM RN INTEGRATED Legal Sex Female 3:26 AM RN INTEGRATED Gender Identity Female 09/12/2020 12:05 PM RN INTEGRATED Sexual Orientation Straight 12/19/2021 10 :44 AM [...] st Contact Info) Description 06/13/2025 6:00 PM RN INTEGRATED Ancillary Procedure [facility] Imaging Center CT Clinic [address] [place] [phone] Omar Carmona MD [address] [place] [address] 068465 06/14/2025 4:00 PM RN INTEGRATED Office Visit [facility] Primary Care Clinic [address] [place] [address] Omar Carmona MD [address] [place] [address] [phone] 06/15/2025 12:45 PM RN INTEGRATED Therapy Visit [facility] 150 [place] [phone] Jason Alvares MD [address] [place] [address] 896175 Chaya Castillo, OTR [facility] 150 [place], [place] 865867 06/19/2025 10:30 AM RN INTEGRATED Virtual Visit [facility] Primary Care [address] [address] Omar Carmona MD [address] [place] [address] [id number] Gerson Santos RPH 06/26/2025 11:00 AM RN INTEGRATED Therapy Visit [facility] 150 [place] [phone] Jason Alvares MD [address] [place] [address] Chaya Castillo OTR [address] [address] 07/09/2025 12:45 PM RN INTEGRATED Therapy Visit [facility] Rehabilitation Services [address] [phone] Jason Alvares MD [address] [place] [address] Chaya Castillo OTR [address] [address] 07/18/2025 3:00 PM RN INTEGRATED Office Visit [facility] Heart [address] [phone] Adonay Chapman APRN [address] 204385 11/05/2025 12:30 PM CDT Lab [facility] Lab [address] [phone] 11/05/2025 1:45 PM CDT Office Visit [facility] Dermatology [address] [place] [phone] Gavi Nieto PA-C Dermatology [address] [place] [address] 365[address] 11/20/2025 10:30 AM CDT Virtual Visit [address] [phone] Marquise Hanley MD [address] [place] [address] 952945 documented as of this encounter Goals Goal [...] Depression Total Score: 12 021 9:43 AM RN INTEGRATED documented as of this encounter Care Teams Sewer Head Relationship Specialty Start Date End Date Rio Jaquez MD [address] [place] [address] 42456 PCP - General Family Practice 12/02/10 07/13/24 Omar Carmona MD [address] [place] [address] 33497 PCP - General Family Medicine 07/14/24 Barry Kilpatrick MD [address] [place] [address] [id number] [place] [address] Neurology 07/19/14 Michelle Henderson I, RN Nurse Coordinator Neurology 07/19/14 Rio Jaquez MD [address] [place] [address] 99866 Family Practice 10/15/14 Jemima Jaramillo MD united states attorney 11/20/14 Kelley Chin, TANIA [facility] [address] [place] [address] 42110 Nurse Coordinator Cardiology 11/04/15 Sydnee Saleem MD 420 [facility] 508 [place] [address] Cardiology 11/04/15 Karlene Moya MD [address] [place] [address] 885675 Ophthalmology 06/24/17 Wilbert Quintero, OD [address] [place] [address] 198075 Optometry 06/24/17 Rod Gauthier DPM [address] [place] [address] 986905 Glass Tinter Primary Podiatric Medicine 06/21/18 Nallely Hogue, TANIA Registered Nurse 02/20/19 11/23/22 Larisa Vargas, TANIA Specialty Scalper Operator Cardiology 04/18/19 03/06/22 Francisco Lott MD [address] [place] [address] 88 [place] [address] Assigned Rheumatology Provider 05/31/20 12/13/21 Greg Ortega MD [address] [place] [address] 114185 Assigned Surgical Provider 06/23/20 12/06/21 Jan Mahmood MD [address] [place], [place] [address]B 2A [place], [place] 238335 Gastroenterology 11/05/20 Brandt Quintana MD 1414 [place] [address] Resident 11/05/20 Jan Mahmood MD 516 [facility] 2A [place] [address] Assigned Gastroenterology Provider 12/01/20 Rio Jaquez MD 909 [facility] 4 [place], [place] 840965 Assigned PCP 11/17/20 09/30/24 Dom Eason MD [address] [place] [address] 353 [place] [address] Internal Medicine 12/02/20 Jayla Plaza, RN Specialty Scalper Operator Hepatology 01/09/21 02/13/24 Sydnee Saleem MD [address] [place] [address] [phone] Assigned Heart and Vascular Provider 02/02/21 07/24/22 Phan Coello MD Assigned Neuroscience Provider 02/21/21 11/22/21 Cristian Barragan MD 2945 [place] [address] Assigned Infectious Disease Provider 02/21/21 03/06/22 Dom Eason MD [address] [place] [address] 353 [place] [address] Assigned Nephrology Provider 04/20/21 01/02/22 Jaimie Vernon, RN Specialty Scalper Operator Cardiology 10/28/21 Ruth Riddle DPM, Podiatry/Foot and Ankle Surgery [address] [place] [address] Assigned Musculoskeletal Provider 11/30/21 09/30/23 Luis Arrington MD [address] [place] [address]709 Assigned Neuroscience Provider 11/23/21 01/02/22 Jason Alvares MD [address] [place] [address] Assigned Neuroscience Provider 01/03/22 05/15/22 Marquise Hanley MD [address] [place] [address] 11836 Endocrinology, Diabetes, and Metabolism 03/05/22 Vlad Ramey MD [address] [place] [address] 41702 Cardiovascular Disease 05/07/22 Joesph Crowe MD [address] [place] [address]406 Surgery 05/07/22 Luis Arrington MD [address] [place] [address] 98[address] Assigned Neuroscience Provider 05/16/22 05/14/23 Michelle Padilla RN Specialty Scalper Operator Cardiology 07/03/22 Vlad Ramey MD 9 [place] [address] Assigned Heart and Vascular Provider 07/25/22 05/28/23 Marquise Hanley MD 9 [place] [address] Assigned Endocrinology Provider 08/15/22 Dom Eason MD 717 [facility]EL 353 [place] [address] Assigned Nephrology Provider 11/28/22 02/19/23 Wagner Oliver MD 6401 [place] [address] Critical Care 12/15/22 Laura Epperson NP 7 [facility] [address] [place] [address] Assigned Nephrology Provider 02/20/23 08/30/24 Thom Taveras MD [address], [address] [place] [address] Assigned Cancer Care Provider 02/06/23 08/20/23 Joesph Crowe MD [address] [place] [address] 13404 Surgery 03/17/23 Joesph Crowe MD [address] [place] [address] Assigned Surgical Provider 04/03/23 09/30/24 Adonay Haq MD [address] [place] [address] 09763 Internal Medicine 06/14/23October, Denilson Jackson MD [address] [place], [place] 581665 Assigned Heart and Vascular Provider 05/29/23 11/28/24 Jason Alvares MD [address] 856265 Assigned Neuroscience Provider 05/15/23 11/28/24 Ruth Riddle, DPM, Podiatry/Foot and Ankle Surgery [address] [place], [place] [phone] Assigned Musculoskeletal Provider 10/22/23 Jignesh Mathias MD [address] [place] [address] 476985 Gastroenterology 09/25/24 Adonay Haq MD [address] [place] [address] 49368 Assigned PCP 10/01/24 12/28/24 Omar Carmona MD [address] [place] [address] 300[address] Assigned PCP 12/29/24 Jason Alvares MD [address] [address] Assigned Neuroscience Provider 12/29/24 Jignesh Mathias MD [address] [place] [address]24 Assigned Surgical Provider 12/29/24 Ayad Lopez, PhD LP [address] [place] [address] 7[address] Assigned Behavioral Health Provider 02/28/25 Gavi Nieto PANavinC [address] [place] [address] 011625 Physician Smoking Pipe Driller And Threader Dermatology 03/19/25 documented as of this encounter
--- OUTSIDE RECORDS SUMMARY | 2025-06-08 22:59 | XMS_ITS | Encounter Summary ---
Author Organization [facility] Address [address] [place] [address] Care Team Providers Care Cold Roll Packer Sheet Iron Name Role Phone Rio Jaquez MD Primary Care Provider Barry Kilpatrick MD Unavailable Michelle Henderson I RN Unavailable [phone] Rio Jaquez MD Unavailable [phone] Jemima Jaramillo MD Unavailable Unavai Kelley Bautista RN Unavailable [phone] Sydnee Saleem MD Unavailable [phone] Karlene Moya MD Unavailable Wilbert Quintero OD Unavailable [phone] Rod Gauthier DPM Unavailable [phone] Jan Mahmood MD Unavailable [phone] Brandt Quintana MD Unavailable Jan Mahmood MD Unavailable [phone] Rio Jaquez MD Unavailable [phone] Dom Eason MD Unavailable Jayla Plaza RN Unavailable +[phone] Jaimie Vernon RN Unavailable Unavailable Marquise Hanley MD Unavailable +[phone] Vlad Ramey MD Unavailable +[phone] Joesph Crowe MD Unavailable + [phone] Michelle Padilla RN Unavailable Unavaila ble Marquise Hanley MD Unavailable +[phone] Wagner Oliver MD Unavailable [phone] Laura Epperson NP Unavailable + [phone] Joesph Crowe MD Unavailable + [phone] Joesph Crowe MD Unavailable + [phone] Adonay Haq MD Unavailable [phone] Denilson Srinivasan MD Unavailable + [phone] Jason Alvares MD Unavailable Ruth Riddle DPM, Podiatry /Foot and Ankle Surgery Unavailable Omar Carmona MD Primary Care Provider [phone] Jignesh Mathias MD Unavailable Adonay Haq MD Unavailable [phone] Omar Carmona MD Unavailable [phone] Jason Alvares MD Unavailable Jignesh Mathias MD Unavailable Ayad Lopez PhD LP Unavailable [phone] Gavi Nieto PA-C Unavailable [phone] Encounter Details Date Type Department Care Team (Late st Contact Info) Description 02/04/2024 [facility] Hepatology [address] [address] Jan Mahmood MD 6 [facility] 2A [place] [address] Social History Tobacco Use Types Packs/Day Years [...] Answer Date Recorded PHQ-2 Score 2 08/26/2023 [facility] [...] Sex Assigned at Female 09/12/2020 12:05 PM AUDITOR TAX Legal Sex Female 3:26 AM AUDITOR TAX Gender Identity Female 09/12/2020 12:05 PM AUDITOR TAX Sexual Orientation Straight 12/19/2021 10 :44 AM CDT Occupation Industry Job Start Date Job End Date on disability for FMS Not on file Not on file Not on file disabled Not on file Not on file Not on file documented as of this encounter Plan of Treatment Upcoming Encounters Date Type Department Care Team (Late st Contact Info) Description 06/13/2025 6:00 PM AUDITOR TAX Ancillary Procedure [address] [address] Omar Carmona MD [address] [place] [address] 950225 06/14/2025 4:00 PM AUDITOR TAX Office Visit [facility] Primary Care [address] [phone] Omar Carmona MD [address] [place] [address] 016315 06/15/2025 12:45 PM AUDITOR TAX Therapy Visit [facility] 150 [place] [phone] Jason Alvares MD [address] [place] [address] 141465 Chaya Castillo, OTR [facility] 150 [place], [place] [address]0007 06/19/2025 10:30 AM AUDITOR TAX Virtual Visit [facility] Care [address] [phone] Omar Carmona MD [address] [place] [address] 017695 Gerson Santos [facility] 06/26/2025 11:00 AM AUDITOR TAX Therapy Visit [facility] 150 [place] [phone] Jason Alvares MD [address] [place] [address] 868045 Chaya Castillo, OTR [facility] 150 [place] [address] 07/09/2025 12:45 PM AUDITOR TAX Therapy Visit [facility] 150 [place] [phone] Jason Alvares MD 420 [facility] 295 [place] [address] Chaya Castillo, OTR [facility] 150 [place] [address] 07/18/2025 3:00 PM AUDITOR TAX Office Visit [facility] Heart [address] [phone] Adonay Chapman APRN [facility] 500 [place] [address] 11/05/2025 12:30 PM CDT Lab [facility] Lab [address] [place] [phone] 11/05/2025 1:45 PM CDT Office Visit [facility] Dermatology [address] [place] [phone] Gavi Nieto PANavinC Dermatology [address] [place] [address] 11/20/2025 10:30 AM CDT Virtual Visit [address] [address] Marquise Hanley MD [address] [place] [address] [phone] documented as of this encounter Goals Goal Patient Goal Type Associated Problems Recent Progress Patient-Stated? Author Quit smoking / using tobacco Lifestyle iRo Will MD Note: 06/25/14 planned quit date documented as of this encounter Visit Diagnoses Not on filedocumented in this encounter Additional Health Concerns Infection Onset Date Last Indicated Resolved Time MRSA Comment:Added from external infection. 10/23/2020 10/21/2020 Rule Out COVID-19 02/09/2024 02/09/2024 02/09/2024 1:52 AM CDT Assessment Noted Time PHQ-9 Depression Total Score: 9 06/14/20 23 7:18 AM AUDITOR TAX documented as of this encounter Care Teams Cold Roll Packer Sheet Iron Relationship Specialty Start Date End Date Rio Jaquez MD [address] [place] [address] 08685 PCP - General Family Practice 12/02/10 07/13/24 Omar Carmona MD [address] [place] [address] 19799 PCP - General Family Medicine 07/14/24 Barry Kilpatrick MD [address] [place] [address] [id number] [place], [place] 947855 Neurology 07/19/14 Michelle Henderson I, TANIA Nurse Coordinator Neurology 07/19/14 Rio Jaquez MD [address] [place] [address] 842145 Family Practice 10/15/14 Jemima Jaramillo MD aquatic life laborer 11/20/14 Kelley Chin, TANIA [address] 293935 Nurse Coordinator Cardiology 11/04/15 Sydnee Saleem MD 420 [facility] 508 [place], [place] 854285 Cardiology 11/04/15 Karlene Moya MD 516 [place], [place] 766525 MD Ophthalmology 06/24/17 Wilbert Quintero, OD 909 [place], [place] 110265 Optometry 06/24/17 Rod Gauthier DPM 909 [place], [place] 360565 Sewing Supervisor Primary Podiatric Medicine 06/21/18 Jan Mahmood MD 6 [facility] 2A [place], [place] 539075 MD Gastroenterology 11/05/20 Brandt Quintana MD [facility]4 [place] [address] Resident 11/05/20 Jan Mahmood MD 6 [facility] 2A [place], [place] 379025 Assigned Gastroenterology Provider 12/01/20 Rio Jaquez MD 909 [facility] 4 [place], [place] 011205 Assigned PCP 11/17/20 09/30/24 Dom Eason MD 717 [facility] MICHAEL 353 [place], [place] 029354 Internal Medicine 12/02/20 Jayla Plaza, RN Specialty School Crossing Guard Supervisor Hepatology 01/09/21 02/13/24 Jaimie Vernon, TANIA Specialty School Crossing Guard Supervisor Cardiology 10/28/21 Marquise Hanley MD [address] [place] [address] 9[address]40 Endocrinology, Diabetes, and Metabolism 03/05/22 Vlad Ramey MD [address] [place] [address] 93973 Cardiovascular Disease 05/07/22 Joesph Crowe MD [address] [place] [address] 96046 Surgery 05/07/22 Michelle Padilla RN Specialty School Crossing Guard Supervisor Cardiology 07/03/22 Marquise Hanley MD [address] [place] [address] 67830 Assigned Endocrinology Provider 08/15/22 Wagner Oliver MD [address] [place] [address] Critical Care 12/15/22 Laura Epperson NP [address] [place] [address] 1932 [place] [address] Assigned Nephrology Provider 02/20/23 08/30/24 Joesph Crowe MD [address] [place] [address] 35790 Surgery 03/17/23 Joesph Crowe MD [address] [place] [address] 30457 Assigned Surgical Provider 04/03/23 09/30/24 Adonay Haq MD [address] [place] [address] Internal Medicine 06/14/23October, Denilson Jackson MD 6405 [facility] [address] [place], [place] 217155 Assigned Heart and Vascular Provider 05/29/23 11/28/24 Jason Alvares MD [address] [place] [address] 593045 Assigned Neuroscience Provider 05/15/23 11/28/24 Ruth Riddle DPM, Podiatry/Foot and Ankle Surgery [address] [place] [address] 436137 Assigned Musculoskeletal Provider 10/22/23 Jignesh Mathias MD [address] [place] [address] 97926 Gastroenterology 09/25/24 Adonay Haq MD [address] [place] [address] 283965 Assigned PCP 10/01/24 12/28/24 Omar Carmona MD [address] [place] [address] 41911 Assigned PCP 12/29/24 Jason Alvares MD 420 [facility] 295 [place] [address] Assigned Neuroscience Provider 12/29/24 Jignesh Mathias MD [address] [place] [address] 342635 Assigned Surgical Provider 12/29/24 Ayad Lopez, PhD LP 516 [place], [place] 828445 Assigned Behavioral Health Provider 02/28/25 Gavi Nieto, PANavinC [address] [place] [address] 817005 Physician Guide Foreign Tour Dermatology 03/19/25 documented as of this encounter
--- OUTSIDE RECORDS SUMMARY | 2025-06-08 22:59 | XMS_ITS | Encounter Summary ---
Author Organization [facility] Address [address] [place] [address] Care Team Providers Care Mold Designer Name Role Phone Rio Jaquez MD Primary Care Provider Barry Kilpatrick MD Unavailable Michelle Henderson RN Unavailable [phone] Rio Jaquez MD Unavailable [phone] Jemima Jaramillo MD Unavailable Unavai Kelley Bautista RN Unavailable [phone] Sydnee Saleem MD Unavailable [phone] Karlene Moya MD Unavailable [phone] Wilbert Quintero OD Unavailable [phone] Rod Gauthier DPM Unavailable [phone] Nallely Hogue RN Unavailable Unavailable Larisa Vargas RN Unavailable Unavailable Francisco Lott MD Unavailable [phone] Greg Ortega MD Unavailable [phone] Jan Mahmood MD Unavailable [phone] Brandt Quintana MD Unavailable [phone] Jan Mahmood MD Unavailable Rio Jaquez MD Unavailable Dom Eason MD Unavailable [phone] Jayla Plaza RN Unavailable Jayla Plaza RN Unavailable Sydnee Saleem MD Unavailable Phan Coello MD Unavailable Unavailable Cristian Barragan MD Unavailable Dom Eason MD Unavailable [phone] Jaimie Vernon RN Unavailable Unavailable Ruth Riddle DPM, Podiatry /Foot and Ankle Surgery Unavailable Luis Arrington MD Unavailable Jason Alvares MD Unavailable Marquise Hanley MD Unavailable Vlad Ramey MD Unavailable Joesph Crowe MD Unavailable [phone] Luis Arrington MD Unavailable Michelle Padilla RN Unavailable Unavaila ble Vlad Ramey MD Unavailable Marquise Hanley MD Unavailable Dom Eason MD Unavailable Wagner Oliver MD Unavailable [phone] Laura Epperson NP Unavailable [phone] Thom Taveras MD Unavailable Joesph Crowe MD Unavailable Joesph Crowe MD Unavailable Adonay Haq MD Unavailable OctoberDenilson MD Unavailable Jason Alvares MD Unavailable Ruth Riddle DPM, Podiatry /Foot and Ankle Surgery Unavailable Omar Carmona MD Primary Care Provider Jignesh Mathias MD Unavailable Adonay Haq MD Unavailable Omar Carmona MD Unavailable [phone] Jason Alvares MD Unavailable Jignesh Mathias MD Unavailable Ayad Lopez PhD LP Unavailable Gavi Nieto PA-C Unavailable Reason for Visit * Reason Onset Date Comments lab orders 12/26/2020 Encounter Details Date Type Department Care Team (Late st Contact Info) Description 12/26/2020 [facility] Medical Advice [facility] [address] [address] Rio Jaquez MD [address] [place] [address] lab orders Social History Tobacco Use [...] Sex Assigned at Female 09/12/2020 12:05 PM DIGITAL PRINTER OPERATOR Legal Sex Female 3:26 AM DIGITAL PRINTER OPERATOR Gender Identity Female 09/12/2020 12:05 PM DIGITAL PRINTER OPERATOR Sexual Orientation Straight 12/19/2021 10 :44 [...] st Contact Info) Description 06/13/2025 6:00 PM DIGITAL PRINTER OPERATOR Ancillary Procedure [facility] [address] [phone] Omar Carmona MD [address] [place] [address] 712645 06/14/2025 4:00 PM DIGITAL PRINTER OPERATOR Office Visit [facility] [address] [address] Omar Carmona MD [address] [place] [address] 003195 06/15/2025 12:45 PM DIGITAL PRINTER OPERATOR Therapy Visit [facility] [address] [phone] Jason Alvares MD [address] [place] [address] 295 [place], [place] 161245 Chaya Castillo, [facility] 150 [place] [address] 06/19/2025 10:30 AM DIGITAL PRINTER OPERATOR Virtual Visit [facility] [address] [phone] Omar Carmona MD [address] [place] [address] [phone] Gerson Santos, MORENO 06/26/2025 11:00 AM DIGITAL PRINTER OPERATOR Therapy Visit [address] [phone] Jason Alvares MD [address] [place] [address] 578355 Chaya Castillo, OTR [address] [address] 07/09/2025 12:45 PM DIGITAL PRINTER OPERATOR Therapy Visit [address] [phone] Jason Alvares MD [address] [place] [address] 989465 Chaya Castillo, OTR [address] [address] 07/18/2025 3:00 PM DIGITAL PRINTER OPERATOR Office Visit [facility] [address] [phone] Adonay Chapman APRN [facility] 500 [place], [place] 352185 11/05/2025 12:30 PM CDT Lab [facility] [address]st [place] [phone] 11/05/2025 1:45 PM CDT Office Visit [facility] [address]rd [place] [phone] Gavi Nieto PA-C Dermatology [address] [place] [address] 11/20/2025 10:30 AM CDT Virtual Visit [address] [place] [address] Marquise Hanley MD 9 [place] [address] documented as of this encounter Goals Goal [...] Depression Total Score: 12 021 9:43 AM DIGITAL PRINTER OPERATOR documented as of this encounter Care Teams Mold Designer Relationship Specialty Start Date End Date Rio Jaquez MD [address] [place] [address] [place] 4 [place] [address] PCP - General Family Practice 12/02/10 07/13/24 Omar Carmona MD [address] [place] [address] PCP - General Family Medicine 07/14/24 Barry Kilpatrick MD [address] [place] [address] [id number] [place] [address] Neurology 07/19/14 Michelle Henderson I, RN Nurse Coordinator Neurology 07/19/14 Rio Jaquez MD [address] [address] Family Practice 10/15/14 Jemima Jaramillo MD leguillon debeader 11/20/14 Kelley Chin RN [facility] [address] [place], [place] [address] Nurse Coordinator Cardiology 11/04/15 Sydnee Saleem MD [address] [place] [address] 508 [place] [address] Cardiology 11/04/15 Karlene Moya MD [address] [place] [address] 728145 Ophthalmology 06/24/17 Wilbert Quintero, OD [address] [place] [address] [phone] Optometry 06/24/17 Rod Gauthier DPM [address] [place] [address] 659305 Double End Production Grinder Primary Podiatric Medicine 06/21/18 Nallely Hogue, TANIA Registered Nurse 02/20/19 11/23/22 Larisa Vargas, TANIA Specialty Driver Courier Cardiology 04/18/19 03/06/22 Francisco Lott MD [address] [place] [address] 88 [place], [place] 318355 Assigned Rheumatology Provider 05/31/20 12/13/21 Greg Ortega MD 9 [place] [address] Assigned Surgical Provider 06/23/20 12/06/21 Jan Mahmood MD [address] [place] [address] 2[address] [place] [address] Gastroenterology 11/05/20 Brandt Quintana MD [facility]4 [place] [address] Resident 11/05/20 Jan Mahmood MD [address] [place] [address] Assigned Gastroenterology Provider 12/01/20 Rio Jaquez MD [address] [place] [address] 4 [place] [address] Assigned PCP 11/17/20 09/30/24 Dom Eason MD [address] [place] [address] 353 [place] [address] Internal Medicine 12/02/20 Jayla Plaza, RN Specialty Driver Courier Hepatology 01/09/21 02/13/24 Jayla Plaza, RN Specialty Driver Courier Hepatology 01/10/21 01/10/21 Sydnee Saleem MD [address] [phone] Assigned Heart and Vascular Provider 02/02/21 07/24/22 Phan Coello MD Assigned Neuroscience Provider 02/21/21 11/22/21 Cristian Barragan MD 2945 [place] [address] Assigned Infectious Disease Provider 02/21/21 03/06/22 Dom Eason MD [address] [place] [address] 353 [place] [address] Assigned Nephrology Provider 04/20/21 01/02/22 Jaimie Vernon, TANIA Specialty Driver Courier Cardiology 10/28/21 Ruth Riddle DPM, Podiatry/Foot and Ankle Surgery 47995 [facility] 300 [place] [address] Assigned Musculoskeletal Provider 11/30/21 09/30/23 Luis Arrington MD [address] [place] [address] Assigned Neuroscience Provider 11/23/21 01/02/22 Jason Alvares MD 420 [facility] 295 [place] [address] Assigned Neuroscience Provider 01/03/22 05/15/22 Marquise Hanley MD [address] [place] [address] Endocrinology, Diabetes, and Metabolism 03/05/22 Vlad Ramey MD [address] [place] [address]46 Cardiovascular Disease 05/07/22 Joesph Crowe MD 9 [place] [address] Surgery 05/07/22 Luis Arrington MD [address] [place] [address] Assigned Neuroscience Provider 05/16/22 05/14/23 Michelle Padilla, TANIA Specialty Driver Courier Cardiology 07/03/22 Vlad Ramey MD [address] [place] [address] [phone] Assigned Heart and Vascular Provider 07/25/22 05/28/23 Marquise Hanley MD [address] [place] [address] 456565 Assigned Endocrinology Provider 08/15/22 Dom Eason MD 717 [facility] 353 [place], [place] 095354 Assigned Nephrology Provider 11/28/22 02/19/23 Wagner Oliver MD [address] [place] [address] Critical Care 12/15/22 Laura Epperson NP 717 [facility] [address] [place] [address] Assigned Nephrology Provider 02/20/23 08/30/24 Thom Taveras MD [address] [facility], [address]105 [place], [place] 126904 Assigned Cancer Care Provider 02/06/23 08/20/23 Joesph Crowe MD [address] [place] [address] MD Surgery 03/17/23 Joesph Crowe MD [address] [place] [address] 75094 Assigned Surgical Provider 04/03/23 09/30/24 Adonay Haq MD [address] [place] [address] 627665 Internal Medicine 06/14/23October, Denilson Jackson MD 6405 [facility] CLEO Black [address] 061785 Assigned Heart and Vascular Provider 05/29/23 11/28/24 Jason Alvares MD [address] [place] [address] [phone] Assigned Neuroscience Provider 05/15/23 11/28/24 Ruth Riddle DPM, Podiatry/Foot and Ankle Surgery [address] [facility] 300 [place] [address] Assigned Musculoskeletal Provider 10/22/23 Jignesh Mathias MD [address] [place] [address] 759885 Gastroenterology 09/25/24 Adonay Haq MD [address] [place] [address] 823255 Assigned PCP 10/01/24 12/28/24 Omar Carmona MD [address] [place] [address] Assigned PCP 12/29/24 Jason Alvares MD [address] [place] [address] Assigned Neuroscience Provider 12/29/24 Jignesh Mathias MD [address] [place] [address] Assigned Surgical Provider 12/29/24 Ayad Lopez, PhD LP [address] [place] [address] Assigned Behavioral Health Provider 02/28/25 Gavi Nieto, PA-C [address] [place] [address] Physician Apartment Leasing Consultant Dermatology 03/19/25 documented as of this encounter
--- OUTSIDE RECORDS SUMMARY | 2025-06-08 22:59 | XMS_ITS | Encounter Summary ---
Author Organization [facility] Address [address] [place] [address] Care Team Providers Care Dressmaker Or Tailor Name Role Phone Rio Jaquez MD Primary Care Provider Barry Kilpatrick MD Unavailable Michelle Henderson RN Unavailable [phone] Rio Jaquez MD Unavailable [phone] Jemima Jaramillo MD Unavailable Unavai Kelley Bautista RN Unavailable [phone] Sydnee Saleem MD Unavailable [phone] Karlene Moya MD Unavailable [phone] Wilbert Quintero OD Unavailable [phone] Rod Gauthier DPM Unavailable [phone] Nallely Hogue RN Unavailable Unavailable Larisa Vargas RN Unavailable Unavailable Francisco Lott MD Unavailable [phone] Greg Ortega MD Unavailable [phone] Jan Mahmood MD Unavailable [phone] Brandt Quintana MD Unavailable [phone] Jan Mahmood MD Unavailable Rio Jaquez MD Unavailable [phone] Dom Eason MD Unavailable Jayla Plaza RN Unavailable Sydnee Saleem MD Unavailable Phan Coello MD Unavailable Unavailable Cristian Barragan MD Unavailable Dom Eason MD Unavailable Jaimie Vernon RN Unavailable Unavailable Ruth Riddle DPM, Podiatry /Foot and Ankle Surgery Unavailable Luis Arrington MD Unavailable Jason Alvares MD Unavailable Marquise Hanlye MD Unavailable [phone] Vlad Ramey MD Unavailable Joesph Crowe MD Unavailable Luis Arrington MD Unavailable Michelle Padilla RN Unavailable Unavaila ble Vlad Ramey MD Unavailable Marquise Hanley MD Unavailable [phone] Dom Eason MD Unavailable Wagner Oliver MD Unavailable Laura Epperson NP Unavailable [phone] Thom Taveras MD Unavailable [phone] Joesph Crowe MD Unavailable [phone] Joesph Crowe MD Unavailable [phone] Adonay Haq MD Unavailable [phone] Denilson Srinivasan MD Unavailable [phone] Jason Alvares MD Unavailable Ruth Riddle DPM, Podiatry /Foot and Ankle Surgery Unavailable Omar Carmona MD Primary Care Provider Jignesh Mathias MD Unavailable Adonay Haq MD Unavailable [phone] Omar Carmona MD Unavailable [phone] Jason Alvares MD Unavailable Jignesh Mathias MD Unavailable Ayad Lopez PhD LP Unavailable [phone] Gavi Nieto-C Unavailable [phone] Encounter Details Date Type Department Care Team (Late st Contact Info) Description 01/28/2021 [facility] Medical Advice [facility] 9[address] [facility] 4th [place] [address] Radha Paiz, [facility] [address] [place], [place] [address] Social History Tobacco Use Types Packs/Day Years [...] Sex Assigned at Female 09/12/2020 12:05 PM INSTRUCTIONAL RESOURCE TEACHER Legal Sex Female 3:26 AM INSTRUCTIONAL RESOURCE TEACHER Gender Identity Female 09/12/2020 12:05 PM INSTRUCTIONAL RESOURCE TEACHER Sexual Orientation Straight 12/19/2021 10 :44 [...] st Contact Info) Description 06/13/2025 6:00 PM INSTRUCTIONAL RESOURCE TEACHER Ancillary Procedure [facility] CT Clinic [address] [phone] Omar Carmona MD [address] [place] [address] 204215 06/14/2025 4:00 PM INSTRUCTIONAL RESOURCE TEACHER Office Visit [facility] [address] [phone] Omar Carmona MD [address] [place] [address] [phone] 06/15/2025 12:45 PM INSTRUCTIONAL RESOURCE TEACHER Therapy Visit [facility] 150 [place] [phone] Jason Alvares MD 420 [facility] 295 [place], [place] [address]25 Chaya Castillo, OTR [facility] 150 [place], [place] [phone] 06/19/2025 10:30 AM INSTRUCTIONAL RESOURCE TEACHER Virtual Visit [facility] Care [address] [address] Omar Carmona MD [address] [place] [address] [phone] Gerson Santos RPH 06/26/2025 11:00 AM INSTRUCTIONAL RESOURCE TEACHER Therapy Visit [facility] 150 [place] [address]-051714 Jason Alvares MD [address] [address] Chaya Castillo, OTR [facility] 150 [place] [address] 07/09/2025 12:45 PM INSTRUCTIONAL RESOURCE TEACHER Therapy Visit [facility] [address] [address] Jason Alvares MD [address] [place] [address] Chaya Castillo, OTR [address] [address] 07/18/2025 3:00 PM INSTRUCTIONAL RESOURCE TEACHER Office Visit [facility] Heart [address] [phone] Adonay Chapman APRN [facility] 500 [place] [address] 11/05/2025 12:30 PM CDT Lab [facility] [address] [place] [phone] 11/05/2025 1:45 PM CDT Office Visit [facility] [address] [place] [phone] Gavi Nieto PA-C Dermatology [address] [place] [address] 11/20/2025 10:30 AM CDT Virtual Visit [address] [address] Marquise Hanley MD [address] [place] [address] documented as of this encounter Goals Goal [...] Depression Total Score: 12 021 9:43 AM INSTRUCTIONAL RESOURCE TEACHER documented as of this encounter Care Teams Dressmaker Or Tailor Relationship Specialty Start Date End Date Rio Jaquez MD [address] [place] [address] PCP - General Family Practice 12/02/10 07/13/24 Omar Carmona MD [address] [place] [address]677 PCP - General Family Medicine 07/14/24 Barry Kilpatrick MD [address] [place] [address] [id number] [place] [address] Neurology 07/19/14 Michelle Henderson I, RN Nurse Coordinator Neurology 07/19/14 Rio Jaquez MD [address] [place] [address] Family Practice 10/15/14 Jemima Jaramillo MD quality eng 11/20/14 Kelley Chin, TANIA [place] 440065 Nurse Coordinator Cardiology 11/04/15 Sydnee Saleem MD [address] [place] [address] 508 [place] [address] Cardiology 11/04/15 Karlene Moya MD [address] [place] [address] 832345 Ophthalmology 06/24/17 Wilbert Quintero OD [address] [place] [address] 825195 Optometry 06/24/17 Rod Gauthier DPM [address] [place] [address] 664405 Principal Investigator Primary Podiatric Medicine 06/21/18 Nallely Hogue, RN Registered Nurse 02/20/19 11/23/22 Larisa Vargas, TANIA Specialty Street Sweeper Operator Cardiology 04/18/19 03/06/22 Francisco Lott MD [address] [place] [address] 844515 Assigned Rheumatology Provider 05/31/20 12/13/21 Greg Ortega MD [address] [place] [address] 224835 Assigned Surgical Provider 06/23/20 12/06/21 Jan Mahmood MD [address] [place] [address] 558698 Gastroenterology 11/05/20 Brandt Quintana MD 1414 [place] [address] Resident 11/05/20 Jan Mahmood MD 516 [facility] 2[address] [place] [address] Assigned Gastroenterology Provider 12/01/20 Rio Jaquez MD [address] [phone] Assigned PCP 11/17/20 09/30/24 Dom Eason MD [address] [place] [address] Internal Medicine 12/02/20 Jayla Plaza, RN Specialty Street Sweeper Operator Hepatology 01/09/21 02/13/24 Sydnee Saleem MD 6550 [facility] [address] [place] [address] Assigned Heart and Vascular Provider 02/02/21 07/24/22 Phan Coello MD Assigned Neuroscience Provider 02/21/21 11/22/21 Cristian Barragan MD [address] [place] [address] Assigned Infectious Disease Provider 02/21/21 03/06/22 Dom Eason MD [address] [place] [address] Assigned Nephrology Provider 04/20/21 01/02/22 Jaimie Vernon, RN Specialty Street Sweeper Operator Cardiology 10/28/21 Ruth Riddle DPM, Podiatry/Foot and Ankle Surgery [address] [place] [place] [address] Assigned Musculoskeletal Provider 11/30/21 09/30/23 Luis Arrington MD [address] [place] [address] Assigned Neuroscience Provider 11/23/21 01/02/22 Jason Alvares MD [address] [place] [address] 295 [place] [address] Assigned Neuroscience Provider 01/03/22 05/15/22 Marquise Hanley MD [address] [place] [address] Endocrinology, Diabetes, and Metabolism 03/05/22 Vlad Ramey MD [address] [place] [address] 33278 Cardiovascular Disease 05/07/22 Joesph Crowe MD [address] [place] [address] Surgery 05/07/22 Luis Arrington MD [address] [place] [address] Assigned Neuroscience Provider 05/16/22 05/14/23 Michelle Padilla RN Specialty Street Sweeper Operator Cardiology 07/03/22 Vlad Ramey MD [address] [place] [address] Assigned Heart and Vascular Provider 07/25/22 05/28/23 Marquise Hanley MD [address] [place] [address] Assigned Endocrinology Provider 08/15/22 Dom Eason MD 7 [facility] 353 [place] [address] Assigned Nephrology Provider 11/28/22 02/19/23 Wagner Oliver MD 6401 [facility] [place] [address] Critical Care 12/15/22 Laura Epperson NP [address] [place] [address] 1932 [place] [address] Assigned Nephrology Provider 02/20/23 08/30/24 Thom Taveras MD [address] [place] [address], [address] [address] Assigned Cancer Care Provider 02/06/23 08/20/23 Joesph Crowe MD [address] [place] [address] Surgery 03/17/23 Joesph Crowe MD [address] [place] [address] 66026 Assigned Surgical Provider 04/03/23 09/30/24 Adonay Haq MD [address] [place] [address] Internal Medicine 06/14/23October, Denilson Jackson MD [address] [facility] [address] [place] [address] Assigned Heart and Vascular Provider 05/29/23 11/28/24 Jason Alvares MD [address] [place] [address]702 Assigned Neuroscience Provider 05/15/23 11/28/24 Ruth Riddle, DPM, Podiatry/Foot and Ankle Surgery [address] [place] [address] [facility] 300 [place] [address] Assigned Musculoskeletal Provider 10/22/23 Jignesh Mathias MD [address] [place] [address] Gastroenterology 09/25/24 Adonay Haq MD [address] [place] [address] Assigned PCP 10/01/24 12/28/24 Omar Carmona MD [address] [place] [address] Assigned PCP 12/29/24 Jason Alvares MD [address] [place] [address] 325765 Assigned Neuroscience Provider 12/29/24 Jignesh Mathias MD 909 [place] [address] Assigned Surgical Provider 12/29/24 Ayad Lopez, PhD LP [address] [place] [address] Assigned Behavioral Health Provider 02/28/25 Gavi Nieto PANavinC [address] [place] [address] Physician Cracker Dough Mixer Dermatology 03/19/25 documented as of this encounter
--- OUTSIDE RECORDS SUMMARY | 2025-06-08 22:59 | XMS_ITS | Encounter Summary ---
Author Organization [facility] Address [address] [place] [address] 8[address]43 Care Team Providers Care Industrial Spraypainter Name Role Phone Rio Jaquez MD Primary Care Provider Barry Kilpatrick MD Unavailable Michelle Henderson I RN Unavailable [phone] Rio Jaquez MD Unavailable +[phone] Jemima Jaramillo MD Unavailable Unavai Kelley Bautista RN Unavailable +[phone] Sydnee Saleem MD Unavailable +[phone] Karlene Moya MD Unavailable +[phone] Wilbert Quintero OD Unavailable +[phone] Rod GauthierM Unavailable +[phone] Jan Mahmood MD Unavailable [phone] Brandt Quintana MD Unavailable +[phone] Jan Mahmood MD Unavailable +[phone] Rio Jaquez MD Unavailable +[phone] Dom Eason MD Unavailable + [phone] Cordova, Jaimie RN Unavailable Unavailable Marquise Hanley MD Unavailable +[phone] Vlad Ramey MD Unavailable +[phone] Joesph Crowe MD Unavailable + [phone] Michelle Padilla RN Unavailable Unavaila ble Marquise Hanley MD Unavailable +[phone] Wagner Oliver MD Unavailable +[phone] Laura Epperson NP Unavailable +[phone] Joesph Crowe MD Unavailable +[phone] Joesph Crowe MD Unavailable + [phone] Adonay Haq MD Unavailable [phone] Denilson Srinivasan MD Unavailable + [phone] Jason Alvares MD Unavailable Ruth Riddle DPM, Podiatry /Foot and Ankle Surgery Unavailable Omar Carmona MD Primary Care Provider [phone] Jignesh Mathias MD Unavailable Adonay Haq MD Unavailable [phone] Omar Carmona MD Unavailable +[phone] Jason Alvares MD Unavailable Jignesh Mathias MD Unavailable Ayad Lopez PhD LP Unavailable +[phone] Gavi Nieto PA-C Unavailable +[phone] Encounter Details Date Type Department Care Team (Late st Contact Info) Description 03/19/2024 [facility] [place] [place] [facility] [address] [address] Jan Mahmood MD [address] [place] [address] 07648 Social History Tobacco Use Types Packs/Day Years [...] Answer Date Recorded PHQ-2 Score 2 02/28/2024 [facility] - Occupational [...] Sex Assigned at Female 09/12/2020 12:05 PM INFECTION CONTROL PRACTITIONER Legal Sex Female 3:26 AM INFECTION CONTROL PRACTITIONER Gender Identity Female 09/12/2020 12:05 PM INFECTION CONTROL PRACTITIONER Sexual Orientation Straight 12/19/2021 10 :44 AM CDT Occupation Industry Job Start Date Job End Date on disability for FMS Not on file Not on file Not on file disabled Not on file Not on file Not on file documented as of this encounter Plan of Treatment Upcoming Encounters Date Type Department Care Team (Late st Contact Info) Description 06/13/2025 6:00 PM INFECTION CONTROL PRACTITIONER Ancillary Procedure [facility] [address] 1st [place] [address] Omar Carmona MD [address] [place] [address] 06/14/2025 4:00 PM INFECTION CONTROL PRACTITIONER Office Visit [facility] [address] [phone] Omar Carmona MD [address] [place] [address] 782185 06/15/2025 12:45 PM INFECTION CONTROL PRACTITIONER Therapy Visit [facility] [place] [phone] Jason Alvares MD [address] [place] [address] Chaya Castillo, OTR [facility] 150 [place], [place] 931877 06/19/2025 10:30 AM INFECTION CONTROL PRACTITIONER Virtual Visit [facility] [address] [phone] Omar Carmona MD [address] [place] [address] Gerson Santos [facility] 06/26/2025 11:00 AM INFECTION CONTROL PRACTITIONER Therapy Visit [facility] [address] [place] [phone] Jason Alvares MD [address] [place] [address] [phone] Chaya Castillo, OTR [facility] 150 [place] [address] 07/09/2025 12:45 PM INFECTION CONTROL PRACTITIONER Therapy Visit [facility] 150 [place] [address] Jason Alvares MD 420 [facility] 295 [place] [address] Chaya Castillo, OTR [facility] 150 [place] [address] 07/18/2025 3:00 PM INFECTION CONTROL PRACTITIONER Office Visit [facility] [address] [phone] Adonay Chapman APRN [facility] 500 [place], [place] 014755 11/05/2025 12:30 PM CDT Lab [facility] [address] 1st [place] [phone] 11/05/2025 1:45 PM CDT Office Visit [facility] Dermatology [address]rd [place] [phone] Gavi Nieto PANavinC Dermatology [address] [place] [address] 11/20/2025 10:30 AM CDT Virtual Visit [address] [phone] Marquise Hanley MD [address] [place] [address] 6[address]78 documented as of this encounter Goals Goal [...] as of this encounter Care Teams Industrial Spraypainter Relationship Specialty Start Date End Date Rio Jaquez MD [address] [place] [address] 4 [place], [place] 488265 PCP - General Family Practice 12/02/10 07/13/24 Omar Carmona MD [address] [place] [address] 655435 PCP - General Family Medicine 07/14/24 Barry Kilpatrick MD [address] [place] [address] [id number] [place], [place] 302585 Neurology 07/19/14 Michelle Henderson I, RN Nurse Coordinator Neurology 07/19/14 Rio Jaquez MD [address] [place] [address] 725775 Family Practice 10/15/14 Jemima Jaramillo MD six sigma black trainer 11/20/14 Kelley Chin, TANIA [facility] [address] [place] [address] [phone] Nurse Coordinator Cardiology 11/04/15 Sydnee Saleem MD [address] [place] [address] 508 [place], [place] 183605 Cardiology 11/04/15 Karlene Moya MD [address] [place] [address] 714095 Ophthalmology 06/24/17 Wilbert Quintero OD [address] [place] [address] 11218 Optometry 06/24/17 Rod Gauthier DPM [address] [place] [address] 665665 Break And Load Operator Primary Podiatric Medicine 06/21/18 Jan Mahmood MD [address] [place] [address] 108835 Gastroenterology 11/05/20 Brandt Quintana MD [address] [place] [address] Resident 11/05/20 Jan Mahmood MD [address] [place] [address] 620095 Assigned Gastroenterology Provider 12/01/20 Rio Jaquez MD [address] [place] [address] 747545 Assigned PCP 11/17/20 09/30/24 Dom Eason MD [address] 848904 Internal Medicine 12/02/20 Jaimie Vernon, RN Specialty [facility] 10/28/21 Marquise Hanley MD [address] [place] [address] 85699 Endocrinology, Diabetes, and Metabolism 03/05/22 Vlad Ramey MD [address] [place] [address] 69028 Cardiovascular Disease 05/07/22 Joesph Crowe MD [address] [place] [address] 85191 Surgery 05/07/22 Michelle Padilla, RN Specialty [facility] 07/03/22 Marquise Hanley MD [address] [place] [address] 82059 Assigned Endocrinology Provider 08/15/22 Wagner Oliver MD [address] [place] [address] Critical Care 12/15/22 Laura Epperson NP [address] [place] [address] 1932 [place] [address] Assigned Nephrology Provider 02/20/23 08/30/24 Joesph Crowe MD [address] [place] [address] 35706 Surgery 03/17/23 Joesph Crowe MD [address] [place] [address] 53474 Assigned Surgical Provider 04/03/23 09/30/24 Adonay Haq MD [address] [place] [address] Internal Medicine 06/14/23OctoberDenilson MD [address] [place] [address] Assigned Heart and Vascular Provider 05/29/23 11/28/24 Jason Alvares MD [address] [place] [address] 90356 Assigned Neuroscience Provider 05/15/23 11/28/24 Ruth Riddle DPM, Podiatry/Foot and Ankle Surgery [address] [place], [place] 022977 Assigned Musculoskeletal Provider 10/22/23 Jignesh Mathias MD [address] [place] [address] 81113 Gastroenterology 09/25/24 Adonay Haq MD [address] [place] [address] 88754 Assigned PCP 10/01/24 12/28/24 Omar Carmona MD [address] [place] [address] 86923 Assigned PCP 12/29/24 Jason Alvares MD [address] [place] [address] 23529 Assigned Neuroscience Provider 12/29/24 Jignesh Mathias MD [address] [place] [address] 23348 Assigned Surgical Provider 12/29/24 Ayad Lopez, PhD LP [address] [place] [address] 77206 Assigned Behavioral Health Provider 02/28/25 Gavi Nieto PANavinC [address] [place] [address] Physician Certified Energy Manager Dermatology 03/19/25 documented as of this encounter
--- OUTSIDE RECORDS SUMMARY | 2025-06-08 22:59 | XMS_ITS | Encounter Summary ---
Author Organization [facility] Address [address] [place] [address] 28[address] Care Team Providers Care Level Vial Marker Name Role Phone Rio Jaquez MD Primary Care Provider Barry Kilpatrick MD Unavailable Michelle Henderson RN Unavailable [phone] Rio Jaquez MD Unavailable [phone] Jemima Jaramillo MD Unavailable Unavai Kelley Bautista RN Unavailable [phone] Sydnee Saleem MD Unavailable [phone] Karlene Moya MD Unavailable [phone] Wilbert Quintero OD Unavailable +[phone] Rod Gauthier DPM Unavailable +[phone] Nallely Hogue RN Unavailable Unavailable Larisa Vargas RN Unavailable Unavailable Francisco Lott MD Unavailable [phone] Greg Ortega MD Unavailable [phone] Jan Mahmood MD Unavailable [phone] Brandt Quintana MD Unavailable [phone] Jan Mahmood MD Unavailable Rio Jaquez MD Unavailable Dom Eason MD Unavailable [phone] Jayla Plaza RN Unavailable Jayla Plaza RN Unavailable Sydnee Saleem MD Unavailable Phan Coelol MD Unavailable Unavailable Cristian Barragan MD Unavailable Dom Eason MD Unavailable [phone] Jaimie Vernon RN Unavailable Unavailable Ruth Riddle DPM, Podiatry /Foot and Ankle Surgery Unavailable Luis Arrington MD Unavailable Jason Alvares MD Unavailable Marquise Hanley MD Unavailable Vlad Ramey MD Unavailable Joesph Crowe MD Unavailable Luis Arrington MD Unavailable Michelle Padilla RN Unavailable Unavaila ble Vlad Ramey MD Unavailable Marquise Hanley MD Unavailable Dom Eason MD Unavailable Wagner Oliver MD Unavailable [phone] Laura Epperson NP Unavailable [phone] Thom Taveras MD Unavailable Joesph Crowe MD Unavailable Joesph Crowe MD Unavailable Adonay Haq MD Unavailable [phone] OctoberDenilson MD Unavailable Jason Alvares MD Unavailable Ruth Riddle DPM, Podiatry /Foot and Ankle Surgery Unavailable Omar Carmona MD Primary Care Provider Jignesh Mathias MD Unavailable Adonay Haq MD Unavailable [phone] Omar Carmona MD Unavailable Jason Alvares MD Unavailable Jignesh Mathias MD Unavailable Ayad Lopez PhD LP Unavailable Gavi Nieto PA-C Unavailable Encounter Details Date Type Department Care Team (Late st Contact Info) Description 01/09/2021 [facility] Medical Advice [facility] Hepatology Clinic [address] [phone] Jan Mahmood MD [address] [place] [address] Social History Tobacco Use Types Packs/Day [...] Assigned at Female 09/12/2020 12:05 PM INDUSTRIAL RADIOGRAPHER Legal Sex Female 3:26 AM INDUSTRIAL RADIOGRAPHER Gender Identity Female 09/12/2020 12:05 PM INDUSTRIAL RADIOGRAPHER Sexual Orientation Straight 12/19/2021 10 :44 AM [...] Contact Info) Description 06/13/2025 6:00 PM INDUSTRIAL RADIOGRAPHER Ancillary Procedure [facility] [address] [phone] Omar Carmona MD [address] [place] [address] [phone] 06/14/2025 4:00 PM INDUSTRIAL RADIOGRAPHER Office Visit [facility] [address] [phone] Omar Carmona MD [address] [place] [address] [phone] 06/15/2025 12:45 PM INDUSTRIAL RADIOGRAPHER Therapy Visit [facility] [address] [phone] Jason Alvares MD 420 [facility] [address] [place], [place] [phone] Chaya Castillo, OTR [address] [address] 06/19/2025 10:30 AM INDUSTRIAL RADIOGRAPHER Virtual Visit [facility] [address] [phone] Omar Carmona MD [address] [place] [address] 390235 Gerson Santos RPH 06/26/2025 11:00 AM INDUSTRIAL RADIOGRAPHER Therapy [facility] [address] [place] [phone] Jason Alvares MD [address] [place] [address] Chaya Castillo OTR [facility] 150 [place] [address] 07/09/2025 12:45 PM INDUSTRIAL RADIOGRAPHER Therapy Visit [facility] [address] [place] [phone] Jason Alvares MD [address] [place] [address] Chaya Castillo OTR [facility] 150 [place] [address] 07/18/2025 3:00 PM INDUSTRIAL RADIOGRAPHER Office Visit [facility] Heart [address] [phone] Adonay Chapman APRN [address] [address] 11/05/2025 12:30 PM CDT Lab [facility] Lab [address] [phone] 11/05/2025 1:45 PM CDT Office Visit [facility] Dermatology Clinic [address] 3rd [place] [phone] Gavi Nieto PA-C Dermatology [address] [place] [address] 11/20/2025 10:30 AM CDT Virtual Visit [address] [address] Marquise Hanley MD [address] [place] [address] 603765 documented as of this encounter Goals Goal [...] Depression Total Score: 12 021 9:43 AM INDUSTRIAL RADIOGRAPHER documented as of this encounter Care Teams Level Vial Marker Relationship Specialty Start Date End Date Rio Jaquez MD [address] [place] [address] 201575 PCP - General Family Practice 12/02/10 07/13/24 Omar Carmona MD [address] [place] [address] [phone] PCP - General Family Medicine 07/14/24 Barry Kilpatrick MD [address] [place] [address] [id number] [place] 958995 Neurology 07/19/14 Michelle Henderson I, RN Nurse Coordinator Neurology 07/19/14 Rio Jaquez MD [address] [place] [address] 637045 Family Practice 10/15/14 Jemima Jaramillo MD leadership development manager 11/20/14 Kelley Chin, TANIA RUST 909 [place], [place] 478445 Nurse Coordinator Cardiology 11/04/15 Sydnee Saleem MD [address] [place] [address] [address] [place], [place] 746815 Cardiology 11/04/15 Karlene Moya MD [address] [place] [address] 625105 Ophthalmology 06/24/17 Wilbert Quintero, OD [address] [place] [address] Optometry 06/24/17 Rod Gauthier DPM [address] [place] [address] Wool Merchant Primary Podiatric Medicine 06/21/18 Nallely Hogue, TANIA Registered Nurse 02/20/19 11/23/22 Larisa Vargas, TANIA Specialty Chucking Lathe Operator Cardiology 04/18/19 03/06/22 Francisco Lott MD [address] [place] [address] [phone] Assigned Rheumatology Provider 05/31/20 12/13/21 Greg Ortega MD [address] [place] [address] 646155 Assigned Surgical Provider 06/23/20 12/06/21 Jan Mahmood MD [address] [facility] [place] [address] Gastroenterology 11/05/20 Brandt Quintana MD 1414 [place] [address] Resident 11/05/20 Jan Mahmood MD [address] [address] [place] [address] Assigned Gastroenterology Provider 12/01/20 Rio Jaquez MD 909 [facility] [address] [place], [place] 191775 Assigned PCP 11/17/20 09/30/24 Dom Eason MD 717 [facility] [address] [place], [place] 851274 Internal Medicine 12/02/20 Jayla Plaza, RN Specialty Chucking Lathe Operator Hepatology 01/09/21 02/13/24 Jayla Plaza, RN Specialty Chucking Lathe Operator Hepatology 01/10/21 01/10/21 Sydnee Saleem MD 6550 [facility] [address] [place] [address] Assigned Heart and Vascular Provider 02/02/21 07/24/22 Phan Coello MD Assigned Neuroscience Provider 02/21/21 11/22/21 Cristian Barragan MD 2945 [place] [address] Assigned Infectious Disease Provider 02/21/21 03/06/22 Dom Eason MD [address] [place] [address] [address] [place] [address] Assigned Nephrology Provider 04/20/21 01/02/22 Jaimie Vernon, TANIA Specialty Chucking Lathe Operator Cardiology 10/28/21 Ruth Riddle DPM, Podiatry/Foot and Ankle Surgery [address] [address] Assigned Musculoskeletal Provider 11/30/21 09/30/23 Luis Arrington MD [address] [place] [address] 08958 Assigned Neuroscience Provider 11/23/21 01/02/22 Jason Alvares MD [address] [place] [address] [address] [place], [place] 839305 Assigned Neuroscience Provider 01/03/22 05/15/22 Marquise Hanley MD [address] [place] [address] 76376 Endocrinology, Diabetes, and Metabolism 03/05/22 Vlad Ramey MD [address] [place] [address] 61094 Cardiovascular Disease 05/07/22 Joesph Crowe MD [address] [place] [address] 28147 Surgery 05/07/22 Luis Arrington MD [address] [place] [address] 70507 Assigned Neuroscience Provider 05/16/22 05/14/23 Michelle Padilla, RN Specialty Chucking Lathe Operator Cardiology 07/03/22 Vlad Ramey MD [address] [place] [address] [phone] Assigned Heart and Vascular Provider 07/25/22 05/28/23 Marquise Hanley MD [address] [place] [address] [phone] Assigned Endocrinology Provider 08/15/22 Dom Eason MD [address] [place] [address] 21807 Assigned Nephrology Provider 11/28/22 02/19/23 Wagner Oliver MD 6401 [place] [address] Critical Care 12/15/22 Laura Epperson NP [address] [place] [address] [address] [place] [address] Assigned Nephrology Provider 02/20/23 08/30/24 Thom Taveras MD [address] [place] [address]252 Assigned Cancer Care Provider 02/06/23 08/20/23 Joesph Crowe MD [address] [place] [address] 69459 Surgery 03/17/23 Joesph Crowe MD [address] [place] [address] 23950 Assigned Surgical Provider 04/03/23 09/30/24 Adonay Haq MD [address] [place] [address] 92608 Internal Medicine 06/14/23October, Denilson Jackson MD [address] [facility] [address] [place] [address] Assigned Heart and Vascular Provider 05/29/23 11/28/24 Jason Alvares MD [address] [place] [address] [address] [place] [address] Assigned Neuroscience Provider 05/15/23 11/28/24 Ruth Riddle DPM, Podiatry/Foot and Ankle Surgery [address] [place] [address] Assigned Musculoskeletal Provider 10/22/23 Jignesh Mathias MD [address] [place] [address] 31522 Gastroenterology 09/25/24 Adonay Haq MD [address] [place] [address] 63140 Assigned PCP 10/01/24 12/28/24 Omar Carmona MD [address] [place] [address] [phone] Assigned PCP 12/29/24 Jason Alvares MD [address] [place] [address] 812335 Assigned Neuroscience Provider 12/29/24 Jignesh Mathias MD [address] [place] [address] [phone] Assigned Surgical Provider 12/29/24 Ayad Lopez, PhD LP [address] [place] [address]455 Assigned Behavioral Health Provider 02/28/25 Gavi Nieto, PA-C [address] [place] [address] [phone] Physician Instrument Setter Dermatology 03/19/25 documented as of this encounter
--- OUTSIDE RECORDS SUMMARY | 2025-06-08 22:59 | XMS_ITS | Encounter Summary ---
Author Organization [facility] Address [address] [place] [address] Care Team Providers Care Associate Veterinarian Name Role Phone Rio Jaquez MD Primary Care Provider Barry Kilpatrick MD Unavailable Michelle Henderson I RN Unavailable [phone] Rio Jaquez MD Unavailable [phone] Jemima Jaramillo MD Unavailable Unavai Kelley Bautista RN Unavailable +[phone] Sydnee Saleem MD Unavailable [phone] Karlene Moya MD Unavailable Wilbert Quintero OD Unavailable +[phone] Rod Gauthier DPM Unavailable +[phone] Jan Mahmood MD Unavailable +[phone] Brandt Quintana MD Unavailable Jan Mahmood MD Unavailable +[phone] Rio Jaquez MD Unavailable +[phone] Dom Eason MD Unavailable Jayla Plaza RN Unavailable +[phone] Jaimie Vernon RN Unavailable Unavailable Marquise Hanley MD Unavailable +[phone] Vlad Ramey MD Unavailable +[phone] Joesph Crowe MD Unavailable + [phone] Michelle Padilla RN Unavailable Unavaila ble Marquise Hanley MD Unavailable +[phone] Wagner Oliver MD Unavailable +[phone] Laura Epperson NP Unavailable + [phone] Joesph Crowe MD Unavailable [phone] Joesph Crowe MD Unavailable + [phone] Adonay Haq MD Unavailable [phone] Denilson Srinivasan MD Unavailable + [phone] Jason Alvares MD Unavailable Ruth Riddle DPM, Podiatry /Foot and Ankle Surgery Unavailable Omar Carmona MD Primary Care Provider [phone] Jignesh Mathias MD Unavailable Adonay Haq MD Unavailable [phone] Omar Carmona MD Unavailable +[phone] Jason Alvares MD Unavailable Jignesh Mathias MD Unavailable Ayad Lopez PhD LP Unavailable +[phone] Gavi Nieto PA-C Unavailable [phone] Encounter Details Date Type Department Care Team (Late st Contact Info) Description 02/09/2024 [facility] Hepatology [address] [address] Jan Mahmood MD 6 [facility] 2A [place] [address] Social History Tobacco Use Types Packs/Day Years [...] PHQ-2 Score 2 08/26/2023 [facility] Health - Occupational Stress Questionnaire [...] Sex Assigned at Female 09/12/2020 12:05 PM ENERGY CONSERVATION TECHNICIAN Legal Sex Female 3:26 AM ENERGY CONSERVATION TECHNICIAN Gender Identity Female 09/12/2020 12:05 PM ENERGY CONSERVATION TECHNICIAN Sexual Orientation Straight 12/19/2021 10 :44 AM CDT Occupation Industry Job Start Date Job End Date on disability for FMS Not on file Not on file Not on file disabled Not on file Not on file Not on file documented as of this encounter Plan of Treatment Upcoming Encounters Date Type Department Care Team (Late st Contact Info) Description 06/13/2025 6:00 PM ENERGY CONSERVATION TECHNICIAN Ancillary Procedure [address] [address] Omar Carmona MD [address] [place] [address] [phone] 06/14/2025 4:00 PM ENERGY CONSERVATION TECHNICIAN Office Visit [facility] Primary Care [address] [phone] Omar Carmona MD [address] [place] [address] 190515 06/15/2025 12:45 PM ENERGY CONSERVATION TECHNICIAN Therapy Visit [facility] [address] [place] [phone] Jason Alvares MD [address] [place] [address] 818845 Chaya Castillo, OTR [facility] 150 [place], [place] 620437 06/19/2025 10:30 AM ENERGY CONSERVATION TECHNICIAN Virtual Visit [facility] Care [address] [phone] Omar Carmona MD [address] [place] [address] 184625 Gerson Santos [facility] 06/26/2025 11:00 AM ENERGY CONSERVATION TECHNICIAN Therapy [facility] [address] [place] [phone] Jason Alvares MD [address] [place] [address] 799875 hCaya Castillo, OTR [facility] 150 [place] [address] 07/09/2025 12:45 PM ENERGY CONSERVATION TECHNICIAN Therapy Visit [facility] Rehabilitation Services [facility] [address] [place] [phone] Jason Alvares MD 420 [facility] 295 [place] [address] Chaya Castillo, OTR [facility] 150 [place] [address] 07/18/2025 3:00 PM ENERGY CONSERVATION TECHNICIAN Office Visit [facility] Heart [address] [phone] Adonay Chapman APRN [facility] 500 [place] [address] 11/05/2025 12:[address] [facility] Lab [address] [place] [phone] 11/05/2025 1:45 PM CDT Office Visit [facility] Dermatology [address] [place] [phone] Gavi Nieto PANavinC Dermatology [address] [place] [address] 11/20/2025 10:30 AM CDT Virtual Visit [address] [address] Marquise Hanley MD [address] [place] [address] 600695 documented as of this encounter Goals Goal [...] Total Score: 9 06/14/20 23 7:18 AM ENERGY CONSERVATION TECHNICIAN documented as of this encounter Care Teams Associate Veterinarian Relationship Specialty Start Date End Date Rio Jaquez MD [address] [place] [address] 45033 PCP - General Family Practice 12/02/10 07/13/24 Omar Carmona MD [address] [place] [address] 58224 PCP - General Family Medicine 07/14/24 Barry Kilpatrick MD [address] [place] [address] [id number] [place], [place] 593235 Neurology 07/19/14 Michelle Henderson I, TANIA Nurse Coordinator Neurology 07/19/14 Rio Jaquez MD [address] [place] [address] [phone] Family Practice 10/15/14 Jemima Jaramillo MD kiln furniture saw tender 11/20/14 Kelley Chin, TANIA [address] 350115 Nurse Coordinator Cardiology 11/04/15 Sydnee Saleem MD 420 [facility] 508 [place], [place] 908745 Cardiology 11/04/15 Karlene Moya MD 516 [place], [place] 849145 MD Ophthalmology 06/24/17 Wilbert Quintero, OD 909 [place], [place] 035595 Optometry 06/24/17 Rod Gauthier DPM 909 [place], [place] 224445 Steward/Stewardess Economy Class Primary Podiatric Medicine 06/21/18 Jna Mahmood MD 6 [facility] 2A [place], [place] 863745 MD Gastroenterology 11/05/20 Brandt Quintana MD [employer] [place] [address] Resident 11/05/20 Jan Mahmood MD 6 [facility] 2A [place], [place] 313865 Assigned Gastroenterology Provider 12/01/20 Rio Jaquez MD 909 [facility] [place] 4 [place], [place] 035305 Assigned PCP 11/17/20 09/30/24 Dom Eason MD 717 [facility] MICHAEL 353 [place], [place] 254784 Internal Medicine 12/02/20 Jayla Plaza, RN Specialty Concrete Batcher Hepatology 01/09/21 02/13/24 Jaimie Vernon, TANIA Specialty Concrete Batcher Cardiology 10/28/21 Marquise Hanley MD [address] [place] [address] 85215 Endocrinology, Diabetes, and Metabolism 03/05/22 Vlad Ramey MD [address] [place] [address] 64863 Cardiovascular Disease 05/07/22 Joesph Crowe MD [address] [place] [address] 30389 Surgery 05/07/22 Michelle Padilla RN Specialty Concrete Batcher Cardiology 07/03/22 Marquise Hanley MD [address] [place] [address] 51663 Assigned Endocrinology Provider 08/15/22 Wagner Oliver MD [address] [place] [address] Critical Care 12/15/22 Laura Epperson NP [address] [place] [address] 1932 [place] [address] Assigned Nephrology Provider 02/20/23 08/30/24 Joesph Crowe MD [address] [place] [address] 01108 Surgery 03/17/23 Joesph Crowe MD [address] [place] [address] 70637 Assigned Surgical Provider 04/03/23 09/30/24 Adonay Haq MD [address] [place] [address] 21202 Internal Medicine 06/14/23October, Denilson Jackson MD 6405 [facility] W200 [place], [place] 042155 Assigned Heart and Vascular Provider 05/29/23 11/28/24 Jason Alvares MD [address] [place] [address] [phone] Assigned Neuroscience Provider 05/15/23 11/28/24 Ruth Riddle DPM, Podiatry/Foot and Ankle Surgery [address] RODRIGUEZ [address] [place] [address] 255517 Assigned Musculoskeletal Provider 10/22/23 Jignesh Mathias MD [address] [place] [address] 399[address] Gastroenterology 09/25/24 Adonay Haq MD [address] [place] [address] 367515 Assigned PCP 10/01/24 12/28/24 Omar Carmona MD [address] [place] [address] 97150 Assigned PCP 12/29/24 Jason Alvares MD 420 [facility] 295 [place] [address] Assigned Neuroscience Provider 12/29/24 Jignesh Mathias MD [address] [place] [address] 899755 Assigned Surgical Provider 12/29/24 Ayad Lopez, PhD LP 516 [place], [place] 040645 Assigned Behavioral Health Provider 02/28/25 Gavi Nieto, PANavinC [address] [place] [address] 898185 Physician Batch Operator Dermatology 03/19/25 documented as of this encounter
--- OUTSIDE RECORDS SUMMARY | 2025-06-08 22:59 | XMS_ITS | Encounter Summary ---
Author Organization [facility] Address [address] [place] [address] Care Team Providers Care Circular Sawyer Stone Name Role Phone Rio Jaquez MD Primary Care Provider Barry Kilpatrick MD Unavailable Michelle Henderson RN Unavailable [phone] Rio Jaquez MD Unavailable [phone] Jemima Jaramillo MD Unavailable Unavai Kelley Bautista RN Unavailable [phone] Sydnee Saleem MD Unavailable [phone] Karlene Moya MD Unavailable [phone] Wilbert Quintero OD Unavailable [phone] Rod Gauthier DPM Unavailable [phone] Nallely Hogue RN Unavailable Unavailable Larisa Vargas RN Unavailable Unavailable Francisco Lott MD Unavailable [phone] Greg Ortega MD Unavailable [phone] Jan Mahmood MD Unavailable [phone] Brandt Quintana MD Unavailable [phone] Jan Mahmood MD Unavailable Rio Jaquez MD Unavailable Dom Eason MD Unavailable [phone] Jayla Plaza RN Unavailable Jayla Plaza RN Unavailable Sydnee Saleem MD Unavailable Phan Coello MD Unavailable Unavailable Cristian Barragan MD Unavailable Dom Eason MD Unavailable [phone] Jaimie Vernon RN Unavailable Unavailable Ruth Riddle DPM, Podiatry /Foot and Ankle Surgery Unavailable Luis Arrington MD Unavailable Jason Alvares MD Unavailable Marquise Hanley MD Unavailable Vlad Ramey MD Unavailable Joesph Crowe MD Unavailable Luis Arrington MD Unavailable Michelle Padilla RN Unavailable Unavaila ble Vlad Ramey MD Unavailable Marquise Hanley MD Unavailable Dom Eason MD Unavailable Wagner Oliver MD Unavailable [phone] Laura Epperson NP Unavailable [phone] Thom Taveras MD Unavailable Joesph Crowe MD Unavailable Joesph Crowe MD Unavailable Adonay Haq MD Unavailable OctoberDenilson MD Unavailable Jason Alvares MD Unavailable Ruth Riddle DPM, Podiatry /Foot and Ankle Surgery Unavailable Omar Carmona MD Primary Care Provider [phone] Jignesh Mathias MD Unavailable Adonay Haq MD Unavailable [phone] Omar Carmona MD Unavailable Jason Alvares MD Unavailable Jignesh Mathias MD Unavailable Ayad Lopez PhD LP Unavailable Gavi Nieto PA-C Unavailable [phone] Encounter Details Date Type Department Care Team (Late st Contact Info) Description 01/07/2021 MyC Medical Advice [facility] Hepatology Clinic [address] [address] Jan Mahmood MD [address] [place] [address] Social History Tobacco Use Types Packs/Day [...] Sex Assigned at Female 09/12/2020 12:05 PM DUST COLLECTOR ORE CRUSHING Legal Sex Female 3:26 AM DUST COLLECTOR ORE CRUSHING Gender Identity Female 09/12/2020 12:05 PM DUST COLLECTOR ORE CRUSHING Sexual Orientation Straight 12/19/2021 10 :44 AM [...] st Contact Info) Description 06/13/2025 6:00 PM DUST COLLECTOR ORE CRUSHING Ancillary Procedure [facility] Imaging Center CT Clinic [address] [phone] Omar Carmona MD [address] [place] [address] [phone] 06/14/2025 4:00 PM DUST COLLECTOR ORE CRUSHING Office Visit [facility] Primary Care [address] [phone] Omar Carmona MD [address] [place] [address] [phone] 06/15/2025 12:45 PM DUST COLLECTOR ORE CRUSHING Therapy Visit [facility] Rehabilitation Services [address] [phone] Jason Alvares MD 420 [facility] 295 [place], [place] [phone] Chaya Castillo, OTR [address] [address] 06/19/2025 10:30 AM DUST COLLECTOR ORE CRUSHING Virtual Visit [facility] Primary Care [address] [phone] Omar Carmona MD [address] [place] [address] 208225 Gerson Santos RPH 06/26/2025 11:00 AM DUST COLLECTOR ORE CRUSHING Therapy [facility] 150 [place] [phone] Jason Alvares MD [address] [place] [address] Chaya Castillo OTR [facility] 150 [place] [address] 07/09/2025 12:45 PM DUST COLLECTOR ORE CRUSHING [facility] 150 [place] [phone] Jason Alvares MD [address] [place] [address] Chaya Castillo OTR [facility] 150 [place] [address] 07/18/2025 3:00 PM DUST COLLECTOR ORE CRUSHING Office Visit [facility] Heart [address] [phone] Adonay Chapman APRN [address] [address] 11/05/2025 12:30 PM CDT Lab [facility] Lab [address] [phone] 11/05/2025 1:45 PM CDT Office Visit [facility] Dermatology Clinic [address]rd [place] [phone] Gavi Nieto PA-C Dermatology [address] [place] [address] 11/20/2025 10:30 AM CDT Virtual Visit [address] [address] Marquise Hanley MD [address] [place] [address] 435175 documented as of this encounter Goals Goal [...] Depression Total Score: 12 021 9:43 AM DUST COLLECTOR ORE CRUSHING documented as of this encounter Care Teams Circular Sawyer Stone Relationship Specialty Start Date End Date Rio Jaquez MD [address] [place] [address] 000605 PCP - General Family Practice 12/02/10 07/13/24 Omar Carmona MD [address] [place] [address] 465265 PCP - General Family Medicine 07/14/24 Barry Kilpatrick MD [address] [place] [address] [id number] [place], [place] 640495 Neurology 07/19/14 Michelle Henderson I, RN Nurse Coordinator Neurology 07/19/14 Rio Jaquez MD [address] [place] [address] 943575 Family Practice 10/15/14 Jemima Jaramillo MD cleaner touch up worker 11/20/14 Kelley Chin, TANIA [facility] 909 [place], [place] 029195 Nurse Coordinator Cardiology 11/04/15 Sydnee Saleem MD [address] [place] [address] 508 [place], [place] 707945 Cardiology 11/04/15 Karlene Moya MD [address] [place] [address] 545595 Ophthalmology 06/24/17 Wilbert Quintero, OD [address] [place] [address] Optometry 06/24/17 Rod Gauthier DPM [address] [place] [address] Artificial Breeding Distributor Primary Podiatric Medicine 06/21/18 Nallely Hogue, TANIA Registered Nurse 02/20/19 11/23/22 Larisa Vargas, TANIA Specialty Heavy Equipment Service Technician Cardiology 04/18/19 03/06/22 Francisco Lott MD [address] [place] [address] [phone] Assigned Rheumatology Provider 05/31/20 12/13/21 Greg Ortega MD [address] [place] [address] 473335 Assigned Surgical Provider 06/23/20 12/06/21 Jan Mahmood MD 516 [facility] 2A [place] [address] Gastroenterology 11/05/20 Brandt Quintana MD 1414 [place] [address] Resident 11/05/20 Jan Mahmood MD 516 [facility] 2A [place] [address] Assigned Gastroenterology Provider 12/01/20 Rio Jaquez MD 909 [facility] 4 [place], [place] 942245 Assigned PCP 11/17/20 09/30/24 Dom Eason MD 717 [facility] MICHAEL [address] [place], [place] 817454 Internal Medicine 12/02/20 Jayla Plaza, RN Specialty Heavy Equipment Service Technician Hepatology 01/09/21 02/13/24 Jayla Plaza, RN Specialty Heavy Equipment Service Technician Hepatology 01/10/21 01/10/21 Sydnee Saleem MD 6550 [facility] [address] [place] [address] Assigned Heart and Vascular Provider 02/02/21 07/24/22 Phan Coello MD Assigned Neuroscience Provider 02/21/21 11/22/21 Cristian Barragan MD 2945 [place] [address] Assigned Infectious Disease Provider 02/21/21 03/06/22 Dom Eaosn MD [address] [place] [address] 353 [place] [address] Assigned Nephrology Provider 04/20/21 01/02/22 Jaimie Vernon, TANIA Specialty Heavy Equipment Service Technician Cardiology 10/28/21 Ruth Riddle DPM, Podiatry/Foot and Ankle Surgery [address] [place] [address] [address] Assigned Musculoskeletal Provider 11/30/21 09/30/23 Luis Arrington MD [address] [place] [address]39 Assigned Neuroscience Provider 11/23/21 01/02/22 Jason Alvares MD [address] [place] [address] 295 [place], [place] 974755 Assigned Neuroscience Provider 01/03/22 05/15/22 Marquise Hanley MD [address] [place] [address] 18047 Endocrinology, Diabetes, and Metabolism 03/05/22 Vlad Ramey MD [address] [place] [address] 51089 Cardiovascular Disease 05/07/22 Joesph Crowe MD [address] [place] [address] 71264 Surgery 05/07/22 Luis Arrington MD [address] [place] [address] 00206 Assigned Neuroscience Provider 05/16/22 05/14/23 Michelle Padilla, RN Specialty Heavy Equipment Service Technician Cardiology 07/03/22 Vlad Ramey MD [address] [place] [address] 557565 Assigned Heart and Vascular Provider 07/25/22 05/28/23 Marquise Hanley MD [address] [place] [address] 895555 Assigned Endocrinology Provider 08/15/22 Dom Eason MD [address] [place] [address]32 Assigned Nephrology Provider 11/28/22 02/19/23 Wagner Oliver MD 6401 [place] [address] Critical Care 12/15/22 Laura Epperson NP [address] [place] [address] 1932 [place] [address] Assigned Nephrology Provider 02/20/23 08/30/24 Thom Taveras MD [address] [place] [address] Assigned Cancer Care Provider 02/06/23 08/20/23 Joesph Crowe MD [address] [place] [address]356 Surgery 03/17/23 Joesph Crowe MD [address] [place] [address] 6[address]31 Assigned Surgical Provider 04/03/23 09/30/24 Adonay Haq MD [address] [place] [address] 55904 Internal Medicine 06/14/23October, Denilson Jackson MD [address] [facility] [address] [place] [address] Assigned Heart and Vascular Provider 05/29/23 11/28/24 Jason Alvares MD [address] [place] [address] 295 [place] [address] Assigned Neuroscience Provider 05/15/23 11/28/24 Ruth Riddle DPM, Podiatry/Foot and Ankle Surgery [address] [place] [address] Assigned Musculoskeletal Provider 10/22/23 Jignesh Mathias MD [address] [place] [address] Gastroenterology 09/25/24 Adonay Haq MD [address] [place] [address] 8[address] Assigned PCP 10/01/24 12/28/24 Omar Carmona MD [address] [place] [address] 030335 Assigned PCP 12/29/24 Jason Alvares MD [address] [place] [address] 274375 Assigned Neuroscience Provider 12/29/24 Jignesh Mathias MD [address] [place] [address] [phone] Assigned Surgical Provider 12/29/24 Ayad Lopez, PhD LP [address] [place] [address] Assigned Behavioral Health Provider 02/28/25 Gavi Nieto, PA-C [address] [place] [address] [phone] Physician Leasing Machine Tender Dermatology 03/19/25 documented as of this encounter
--- OUTSIDE RECORDS SUMMARY | 2025-06-08 22:59 | XMS_ITS | Encounter Summary ---
Author Organization [facility] Address [address] [place] [address] Care Team Providers Care Event Management Consultant Name Role Phone Rio Jaquez MD Primary Care Provider Barry Kilpatrick MD Unavailable Michelle Henderson I RN Unavailable [phone] Rio Jaquez MD Unavailable +[phone] Jemima Jaramillo MD Unavailable Unavai Kelley Bautista RN Unavailable [phone] Sydnee Saleem MD Unavailable +[phone] Karlene Moya MD Unavailable +[phone] Wilbert Quintero OD Unavailable +[phone] Rod Gauthier DPM Unavailable Jan Mahmood MD Unavailable +[phone] Brandt Quintana MD Unavailable [phone] Jan Mahmood MD Unavailable +[phone] Rio Jaquez MD Unavailable +[phone] Dom Eason MD Unavailable Jayla Plaza RN Unavailable +[phone] Jaimie Vernon RN Unavailable Unavailable Marquise Hanley MD Unavailable +[phone] Vlad Ramey MD Unavailable +[phone] Joesph Crowe MD Unavailable + [phone] Michelle Padilla RN Unavailable Unavaila ble Marquise Hanley MD Unavailable +[phone] Wagner Oliver MD Unavailable +[phone] Laura Epperson NP Unavailable + [phone] Joesph Crowe MD Unavailable + [phone] Joesph Crowe MD Unavailable + [phone] Adonay Haq MD Unavailable [phone] Denilson Srinivasan MD Unavailable + [phone] Jason Alvares MD Unavailable Ruth Riddle DPM, Podiatry /Foot and Ankle Surgery Unavailable Omar Carmona MD Primary Care Provider [phone] Jignesh Mathias MD Unavailable Adonay Haq MD Unavailable [phone] Omar Carmona MD Unavailable [phone] Jason Alvares MD Unavailable Jignesh Mathias MD Unavailable Ayad Lopez PhD LP Unavailable +[phone] Gavi Nieto PA-C Unavailable +[phone] Encounter Details Date Type Department Care Team (Late st Contact Info) Description 02/02/2024 [facility] [address] [address] Marquise Hanley MD 908 [place] [address] Social History Tobacco Use Types Packs/Day Years [...] Answer Date Recorded PHQ-2 Score 2 08/26/2023 [facility] [...] Sex Assigned at Female 09/12/2020 12:05 PM PERSONAL CARE ASSISTANT Legal Sex Female 3:26 AM PERSONAL CARE ASSISTANT Gender Identity Female 09/12/2020 12:05 PM PERSONAL CARE ASSISTANT Sexual Orientation Straight 12/19/2021 10 :44 AM CDT Occupation Industry Job Start Date Job End Date on disability for FMS Not on file Not on file Not on file disabled Not on file Not on file Not on file documented as of this encounter Plan of Treatment Upcoming Encounters Date Type Department Care Team (Late st Contact Info) Description 06/13/2025 6:00 PM PERSONAL CARE ASSISTANT Ancillary Procedure [address] [place] [address] Omar Carmona MD [address] [place] [address] 618055 06/14/2025 4:00 PM PERSONAL CARE ASSISTANT Office Visit [facility] Primary Care [address] [phone] Omar Carmona MD [address] [place] [address] 133125 06/15/2025 12:45 PM PERSONAL CARE ASSISTANT Therapy Visit [facility] [address] [place] [phone] Jason Alvares MD [address] [place] [address] 147235 Chaya Castillo [facility]TR [facility] [address] [place], [place] 050597 06/19/2025 10:30 AM PERSONAL CARE ASSISTANT Virtual Visit [facility] Care [address] [phone] Omar Carmona MD [address] [place] [address] 494645 Gerson Santos RPH 06/26/2025 11:00 AM PERSONAL CARE ASSISTANT Therapy Visit [facility] [address] [place] [phone] Jason Alvares MD [address] [place] [address] 424145 Chaya Castillo OTR [facility] [address] [place], [place] 365627 07/09/2025 12:45 PM PERSONAL CARE ASSISTANT Therapy Visit [facility] Rehabilitation Services [facility] [address] [place] [phone] Jason Alvares MD 420 [facility] 295 [place] [address] Chaya Castillo, OTR [facility] [address] [place] [address] 07/18/2025 3:00 PM PERSONAL CARE ASSISTANT Office Visit [facility] Heart [address] [phone] Adonay Chapman APRN [facility] 500 [place], [place] 601325 11/05/2025 12:30 PM CDT Lab [facility] Lab [address] [place] [phone] 11/05/2025 1:45 PM CDT Office Visit [facility] Dermatology [address] [place] [phone] Gavi Nieto PANavinC Dermatology [address] [place] [address] 11/20/2025 10:30 AM CDT Virtual Visit [address] [address] Marquise Hanley MD [address] [place] [address] 064105 documented as of this encounter Goals Goal [...] Total Score: 9 06/14/20 23 7:18 AM PERSONAL CARE ASSISTANT documented as of this encounter Care Teams Event Management Consultant Relationship Specialty Start Date End Date Rio Jaquez MD [address] [place] [address] PCP - General Family Practice 12/02/10 07/13/24 Omar Carmona MD [address] [place] [address] PCP - General Family Medicine 07/14/24 Barry Kilpatrick MD [address] [place] [address] [id number] [place], [place] 941535 Neurology 07/19/14 Michelle Henderson I, RN Nurse Coordinator Neurology 07/19/14 Rio Jaquez MD [address] [place] [address] 563515 Family Practice 10/15/14 Jemima Jaramillo MD livestock slaughterer 11/20/14 Kelley Chin, TANIA [address] 345995 Nurse Coordinator Cardiology 11/04/15 Sydnee Saleem MD [address] [place] [address] 508 [place], [place] 958775 Cardiology 11/04/15 Karlene Moya MD 516 [place], [place] 538455 Ophthalmology 06/24/17 Wilbert Quintero, OD 9[address] [place], [place] 981285 Optometry 06/24/17 Rod Gauthier DPM 9 [place], [place] 250725 MD Electronic Health Records Specialist Primary Podiatric Medicine 06/21/18 Jan Mahmood MD 516 [facility] 2A [place], [place] 078805 Gastroenterology 11/05/20 Brandt Quintana MD [address] [place] [address] Resident 11/05/20 Jan Mahmood MD 6 [facility] 2A [place] [address] Assigned Gastroenterology Provider 12/01/20 Rio Jaquez MD 909 [facility] 4 [place], [place] 596445 Assigned PCP 11/17/20 09/30/24 Dom Eason MD 717 [facility] 353 [place] [address] Internal Medicine 12/02/20 Jayla Plaza, RN Specialty Chicken Handler Hepatology 01/09/21 02/13/24 Jaimie Vernon, TANIA Specialty Chicken Handler Cardiology 10/28/21 Marquise Hanley MD [address] [place] [address] Endocrinology, Diabetes, and Metabolism 03/05/22 Vlad Ramey MD [address] [place] [address] 11753 Cardiovascular Disease 05/07/22 Joesph Crowe MD [address] [place] [address] 65[address] Surgery 05/07/22 Michelle Padilla RN Specialty Chicken Handler Cardiology 07/03/22 Marquise Hanley MD [address] [place] [address] 445[address] Assigned Endocrinology Provider 08/15/22 Wagner Oliver MD [address] [place] [address] Critical Care 12/15/22 Laura Epperson, LULU [address] [place] [address] 1932 [place] [address] Assigned Nephrology Provider 02/20/23 08/30/24 Joesph Crowe MD [address] [place] [address] 7[address] Surgery 03/17/23 Joesph Crowe MD [address] [place] [address] 19236 Assigned Surgical Provider 04/03/23 09/30/24 Adonay Haq MD [address] [place] [address] Internal Medicine 06/14/23October, Denilson Jackson MD [address] [facility] [address] [place], [place] 863085 Assigned Heart and Vascular Provider 05/29/23 11/28/24 Jason Alvares MD [address] [place] [address] 368175 Assigned Neuroscience Provider 05/15/23 11/28/24 Ruth Riddle DPM, Podiatry/Foot and Ankle Surgery [address] [place], [place] 707657 Assigned Musculoskeletal Provider 10/22/23 Jignesh Mathias MD [address] [place] [address] 65[address] Gastroenterology 09/25/24 Adonay Haq MD [address] [place] [address] Assigned PCP 10/01/24 12/28/24 Omar Carmona MD [address] [place] [address] Assigned PCP 12/29/24 Jason Alvares MD 420 [facility] 295 [place] [address] Assigned Neuroscience Provider 12/29/24 Jignesh Mathias MD [address] [place] [address] 364735 Assigned Surgical Provider 12/29/24 Ayad Lopez, PhD LP [address] [place] [address] 235765 Assigned Behavioral Health Provider 02/28/25 Gavi Nieto PANavinC [address] [place], [place] 381205 Physician Flooring Salesperson Dermatology 03/19/25 documented as of this encounter
--- OUTSIDE RECORDS SUMMARY | 2025-06-08 22:59 | XMS_ITS | Encounter Summary ---
Author Organization [place] Address [address] [place] [address] Care Team Providers Care Functional Skills Tutor Name Role Phone Rio Jaquez MD Primary Care Provider Barry Kilpatrick MD Unavailable Michelle Henderson RN Unavailable [phone] Rio Jaquez MD Unavailable [phone] Jemima Jaramillo MD Unavailable Unavai Kelley Bautista RN Unavailable [phone] Sydnee Saleem MD Unavailable [phone] Karlene Moya MD Unavailable [phone] Wilbert Quintero OD Unavailable +[phone] Rod Gauthier DPM Unavailable +[phone] Nallely Hogue RN Unavailable Unavailable Larisa Vargas RN Unavailable Unavailable Francisco Lott MD Unavailable [phone] Greg Ortega MD Unavailable [phone] Jan Mahmood MD Unavailable [phone] Brandt Quintana MD Unavailable [phone] Jan Mahmood MD Unavailable Rio Jaquez [...] MD Unavailable Joesph Crowe MD Unavailable [phone] Joesph Crowe MD Unavailable [phone] Adonay Haq MD Unavailable [phone] Denilson Srinivasan MD Unavailable Jason Alvares MD Unavailable Ruth Riddle DPM, Podiatry /Foot and Ankle Surgery Unavailable Omar Carmona MD Primary Care Provider Jignesh Mathias MD Unavailable Adonay Haq MD Unavailable [phone] Omar Carmona MD Unavailable Jason Alvares MD Unavailable Jignesh Mathias MD Unavailable Ayad Lopez PhD LP Unavailable [phone] Gavi Nieto-C Unavailable [phone] Encounter Details Date Type Department Care Team (Late st Contact Info) Description 01/19/2021 [facility] Medical Advice [facility] Hepatology Clinic [address] [phone] Jan Mahmood MD [address] [place] [address] Social History Tobacco Use Types Packs/Day Years [...] Sex Assigned at Female 09/12/2020 12:05 PM STRATEGIES ANALYST Legal Sex Female 3:26 AM STRATEGIES ANALYST Gender Identity Female 09/12/2020 12:05 PM STRATEGIES ANALYST Sexual Orientation Straight 12/19/2021 10 :44 [...] st Contact Info) Description 06/13/2025 6:00 PM STRATEGIES ANALYST Ancillary Procedure [facility] CT Clinic [address] [phone] Omar Carmona MD [address] [place] [address] 006115 06/14/2025 4:00 PM STRATEGIES ANALYST Office Visit [facility] Care [address] [phone] Omar Carmona MD [address] [place] [address] [phone] 06/15/2025 12:45 PM STRATEGIES ANALYST Therapy Visit [address] [phone] Jason Alvares MD 420 [facility] 295 [place], [place] 745775 Chaya Castillo, OTR [facility] 150 [place], [place] 666347 06/19/2025 10:30 AM STRATEGIES ANALYST Virtual Visit [facility] Care [address] [address] Omar Carmona MD [address] [place] [address] 778905 Gerson Santos RPH 06/26/2025 11:00 AM STRATEGIES ANALYST Therapy Visit [facility] [address] [place] [address] Jason Alvares MD [address] [place] [address] Chaya Castillo, OTR [facility] 150 [place] [address] 07/09/2025 12:45 PM STRATEGIES ANALYST Therapy [facility] [address] [place] [address] Jason Alvares MD [address] [place] [address] Chaya Castillo, OTR [facility] [address] [place] [address] 07/18/2025 3:00 PM STRATEGIES ANALYST Office Visit [facility] Heart [address] [phone] Adonay Chapman APRN [address] [address] 11/05/2025 12:30 PM CDT Lab [facility] Lab [address] [place] [phone] 11/05/2025 1:45 PM CDT Office Visit [facility] Dermatology Clinic [address] [place] [phone] Gavi Nieto PA-C Dermatology [address] [place] [address] 11/20/2025 10:30 AM CDT Virtual Visit [address] [address] Marquise Hanley MD [address] [place] [address] 314165 documented as of this encounter Goals Goal [...] Depression Total Score: 12 021 9:43 AM STRATEGIES ANALYST documented as of this encounter Care Teams Functional Skills Tutor Relationship Specialty Start Date End Date Rio Jaquez MD [address] [place] [address] PCP - General Family Practice 12/02/10 07/13/24 Omar Carmona MD [address] [place] [address] 49[address] PCP - General Family Medicine 07/14/24 Barry Kilpatrick MD [address] [place] [address] [id number] [place] [address] Neurology 07/19/14 Michelle Henderson I, TANIA Nurse Coordinator Neurology 07/19/14 Roi Jaquez MD [address] [place] [address] Family Practice 10/15/14 Jemima Jaramillo MD contact acid plant operator helper 11/20/14 Kelley Chin, TANIA [address] 963495 Nurse Coordinator Cardiology 11/04/15 Sydnee Saleem MD [address] [place], [place] 4360[address] [place], [place] 9[address] Cardiology 11/04/15 Karlene Moya MD [address] [place] [address] 481265 Ophthalmology 06/24/17 Wilbert Quintero, OD [address] [place] [address] Optometry 06/24/17 Rod Gauthier DPM [address] [place] [address] 870415 Textile Slitting Machine Operator Primary Podiatric Medicine 06/21/18 Nallely Hogue, RN Registered Nurse 02/20/19 11/23/22 Larisa Vargas, TANIA Specialty Computed Tomography Scanner Operator Cardiology 04/18/19 03/06/22 Francisco Lott MD [address] [place] [address] 545715 Assigned Rheumatology Provider 05/31/20 12/13/21 Greg Ortega MD [address] [place] [address] 396755 Assigned Surgical Provider 06/23/20 12/06/21 Jan Mahmood MD [address] [place] [address] 2A [place] [address] Gastroenterology 11/05/20 Brandt Quintana MD [facility]4 [place] [address] Resident 11/05/20 Jan Mahmood MD 516 [facility] 2A [place] [address] Assigned Gastroenterology Provider 12/01/20 Rio Jaquez MD [address] [place] [address] 4 [place] [address] Assigned PCP 11/17/20 09/30/24 Dom Eason MD [address] [place] [address] 353 [place] [address] Internal Medicine 12/02/20 Jayla Plaza, RN Specialty Computed Tomography Scanner Operator Hepatology 01/09/21 02/13/24 Sydnee Saleem MD 6550 [facility] [address] [place] [address] Assigned Heart and Vascular Provider 02/02/21 07/24/22 Phan Colelo MD Assigned Neuroscience Provider 02/21/21 11/22/21 Cristian Barragan MD [address] [place] [address] Assigned Infectious Disease Provider 02/21/21 03/06/22 Dom Eason MD 7 [facility] 353 [place] [address] Assigned Nephrology Provider 04/20/21 01/02/22 Jaimie Vernon, RN Specialty Computed Tomography Scanner Operator Cardiology 10/28/21 Ruth Riddle, DPM, Podiatry/Foot and Ankle Surgery 31712 [facility] 300 [place] [address] Assigned Musculoskeletal Provider 11/30/21 09/30/23 Luis Arrington MD [address] [place] [address] Assigned Neuroscience Provider 11/23/21 01/02/22 Jason Alvares MD [address] [place] [address] 295 [place] [address] Assigned Neuroscience Provider 01/03/22 05/15/22 Marquise Hanley MD [address] [place] [address] Endocrinology, Diabetes, and Metabolism 03/05/22 Vlad Ramey MD [address] [place] [address] 8[address] Cardiovascular Disease 05/07/22 Joesph Crowe MD [address] [place] [address] 38877 Surgery 05/07/22 Luis Arrington MD [address] [place] [address] 8[address]85 Assigned Neuroscience Provider 05/16/22 05/14/23 Michelle Padilla, RN Specialty Computed Tomography Scanner Operator Cardiology 07/03/22 Vlad Ramey MD [address] [place] [address]60 Assigned Heart and Vascular Provider 07/25/22 05/28/23 Marquise Hanley MD [address] [place] [address] Assigned Endocrinology Provider 08/15/22 Dom Eason MD [address] [address] Assigned Nephrology Provider 11/28/22 02/19/23 Wagner Oliver MD 6401 [place] [address] Critical Care 12/15/22 Laura Epperson NP [address] [place] [address] 1932 [place] [address] Assigned Nephrology Provider 02/20/23 08/30/24 Thom Taveras MD [address] [place] [address], R[address] [place] [address] Assigned Cancer Care Provider 02/06/23 08/20/23 Joesph Crowe MD [address] [place] [address] 20060 Surgery 03/17/23 Joesph Crowe MD [address] [place] [address]603 Assigned Surgical Provider 04/03/23 09/30/24 Adonay Haq MD [address] [place] [address] Internal Medicine 06/14/23OctoberDenilson MD [address] [facility] [address] [place] [address] Assigned Heart and Vascular Provider 05/29/23 11/28/24 Jason Alvares MD [address] [place] [address] Assigned Neuroscience Provider 05/15/23 11/28/24 Ruth Riddle DPM, Podiatry/Foot and Ankle Surgery [address] [place] [address] Assigned Musculoskeletal Provider 10/22/23 Jignesh Mathias MD [address] [place] [address] Gastroenterology 09/25/24 Adonay Haq MD [address] [place] [address] Assigned PCP 10/01/24 12/28/24 Omar Carmona MD [address] [place] [address] 13091 Assigned PCP 12/29/24 Jason Alvares MD [address] [place] [address] 743265 Assigned Neuroscience Provider 12/29/24 Jignesh Mathias MD [address] [place] [address] 7[address]64 Assigned Surgical Provider 12/29/24 Ayad Lopez, PhD LP [address] [place] [address] 167985 Assigned Behavioral Health Provider 02/28/25 Gavi Nieto, PANavinC 500 [place], [place] 097405 Physician Band Bias Machine Operator Dermatology 03/19/25 documented as of this encounter
--- OUTSIDE RECORDS SUMMARY | 2025-06-08 22:59 | XMS_ITS | Encounter Summary ---
Author Organization [facility] Address [address] [place] [address] Care Team Providers Care Family And Consumer Education Teacher Name Role Phone Rio Jaquez MD Primary Care Provider Barry Kilpatrick MD Unavailable Michelle Henderson RN Unavailable [phone] Rio Jaquez MD Unavailable +[phone] Jemima Jaramillo MD Unavailable Unavai Kelley Bautista RN Unavailable +[phone] Sydnee Saleem MD Unavailable +[phone] Karlene Moya MD Unavailable +[phone] Wilbert Quintero OD Unavailable +[phone] Rod Gauthier DPM Unavailable +[phone] Nallely Hogue RN Unavailable Unavailable Larisa Vargas RN Unavailable Unavailable Francisco Lott MD Unavailable +[phone] Greg Ortega MD Unavailable +[phone] Jan Mahmood MD Unavailable +[phone] Brandt Quintana MD Unavailable +[phone] Jan Mahmood MD Unavailable Rio Jaquez [...] MD Unavailable Joesph Crowe MD Unavailable +[phone] Joesph Crowe MD Unavailable +[phone] Adonay Haq MD Unavailable [phone] Denilson Srinivasan MD Unavailable Jason Alvares MD Unavailable Ruth Riddle DPM, Podiatry /Foot and Ankle Surgery Unavailable Omar Carmona MD Primary Care Provider Jignesh Mathias MD Unavailable Adonay Haq MD Unavailable [phone] Omar Carmona MD Unavailable [phone] Jason Alvares MD Unavailable Jignesh Mathias MD Unavailable Ayad Lopez PhD LP Unavailable +[phone] Gavi Nieto-C Unavailable +[phone] Encounter Details Date Type Department Care Team (Late st Contact Info) Description 01/19/2021 [facility] [place] [facility] [address] [phone] Rio Jaquez MD [address] [place] [address] Social History Tobacco Use Types Packs/Day [...] Sex Assigned at Female 09/12/2020 12:05 PM WAFER SLICER Legal Sex Female 3:26 AM WAFER SLICER Gender Identity Female 09/12/2020 12:05 PM WAFER SLICER Sexual Orientation Straight 12/19/2021 10 :44 [...] st Contact Info) Description 06/13/2025 6:00 PM WAFER SLICER Ancillary Procedure [facility] Center CT Clinic [address] [phone] Omar Carmona MD [address] [place] [address] 523155 06/14/2025 4:00 PM WAFER SLICER Office Visit [facility] Care [address] [phone] Omar Carmona MD [address] [place] [address] [phone] 06/15/2025 12:45 PM WAFER SLICER Therapy Visit [address] [phone] Jason Alvares MD 420 [facility] 295 [place], [place] 817185 Chaya Castillo, OTR [address] [phone] 06/19/2025 10:30 AM WAFER SLICER Virtual Visit [address] [address] Omar Carmona MD [address] [place] [address] [phone] Gerson Santos RPH 06/26/2025 11:00 AM WAFER SLICER [facility] 150 [facility] [place] [address] Jason Alvares MD [address] [place] [address] Chaya Castillo, OTR [facility] 150 [place] [address] 07/09/2025 12:45 PM WAFER SLICER Therapy [facility] 150 [place] [address] Jason Alvares MD [address] [place] [address] Chaya Castillo, OTR [facility] 150 [place] [address] 07/18/2025 3:00 PM WAFER SLICER Office Visit [facility] [address] [phone] Adonay Chapman APRN [address] [address] 11/05/2025 12:30 PM CDT Lab [facility] [address] 1st [place] [phone] 11/05/2025 1:45 PM CDT Office Visit [facility] D[facility]atology [facility] [address] 3rd [place] [address] Gavi Nieto PA-C Dermatology [address] [place] [address] 11/20/2025 10:30 AM CDT Virtual Visit [address] [phone] Marquise Hanley MD [address] [place] [address] [phone] documented as of this encounter Goals Goal [...] Depression Total Score: 12 021 9:43 AM WAFER SLICER documented as of this encounter Care Teams Family And Consumer Education Teacher Relationship Specialty Start Date End Date Rio Jaquez MD [address] [place] [address] PCP - General Family Practice 12/02/10 07/13/24 Omar Carmona MD [address] [place] [address] 61039 PCP - General Family Medicine 07/14/24 Barry Kilpatrick MD [address] [place] [address] [id number] [place] [address] Neurology 07/19/14 Michelle Henderson I, TANIA Nurse Coordinator Neurology 07/19/14 Rio Jaquez MD [address] [place] [address] Family Practice 10/15/14 Jemima Jaramillo MD dressmaker helper 11/20/14 Kelley Chin, TANIA [address] 132085 Nurse Coordinator Cardiology 11/04/15 Sydnee Saleem MD [address] [place] [address] 508 [place], [place] 953055 Cardiology 11/04/15 Karlene Moya MD [address] [place] [address] 946975 Ophthalmology 06/24/17 Wilbert Quintero, OD [address] [place] [address] Optometry 06/24/17 Rod Gauthier DPM [address] [place] [address] [phone] Table Inspector Primary Podiatric Medicine 06/21/18 Nallely Hogue, RN Registered Nurse 02/20/19 11/23/22 Larisa Vargas, TANIA Specialty Facilities Supervisor Cardiology 04/18/19 03/06/22 Francisco Lott MD [address] [place] [address] 902465 Assigned Rheumatology Provider 05/31/20 12/13/21 Greg Ortega MD [address] [place] [address] 725125 Assigned Surgical Provider 06/23/20 12/06/21 Jan Mahmood MD [address] [place], [place] 35[address]B 2A [place] [address] Gastroenterology 11/05/20 Brandt Quintana MD 1414 [place] [address] Resident 11/05/20 Jna Mahmood MD 6 [facility] 2A [place] [address] Assigned Gastroenterology Provider 12/01/20 Rio Jaquez MD 909 [facility] 4 [place] [address] Assigned PCP 11/17/20 09/30/24 Dom Eason MD [address] [place] [address] 353 [place] [address] Internal Medicine 12/02/20 Jayla Plaza, TANIA Specialty Facilities Supervisor Hepatology 01/09/21 02/13/24 Sydnee Saleem MD 6550 [facility] [address] [place] [address] Assigned Heart and Vascular Provider 02/02/21 07/24/22 Phan Coello MD Assigned Neuroscience Provider 02/21/21 11/22/21 Cristian Barragan MD [address] [place] [address] Assigned Infectious Disease Provider 02/21/21 03/06/22 Dom Eason MD 717 [facility] 353 [place] [address] Assigned Nephrology Provider 04/20/21 01/02/22 Jaimie Vernon, RN Specialty Facilities Supervisor Cardiology 10/28/21 uRth Riddle, DPM, Podiatry/Foot and Ankle Surgery 90496 [facility] 300 [place] [address] Assigned Musculoskeletal Provider 11/30/21 09/30/23 Luis Arrington MD [address] [place] [address] Assigned Neuroscience Provider 11/23/21 01/02/22 Jason Alvares MD [address] [place] [address] 295 [place] [address] Assigned Neuroscience Provider 01/03/22 05/15/22 Marquise Hanley MD [address] [place] [address] 19317 Endocrinology, Diabetes, and Metabolism 03/05/22 Vlad Ramey MD [address] [place] [address] 55636 Cardiovascular Disease 05/07/22 Joesph Crowe MD [address] [place] [address] 38436 Surgery 05/07/22 Luis Arrington MD [address] [place] [address] 17615 Assigned Neuroscience Provider 05/16/22 05/14/23 Michelle Padilla, RN Specialty Facilities Supervisor Cardiology 07/03/22 Vlad Ramey MD [address] [place] [address] 46959 Assigned Heart and Vascular Provider 07/25/22 05/28/23 Marquise Hanley MD [address] [place] [address] 49956 Assigned Endocrinology Provider 08/15/22 Dom Eason MD [address] [address] Assigned Nephrology Provider 11/28/22 02/19/23 Wagner Oliver MD 6401 [place] [address] Critical Care 12/15/22 Laura Epperson NP [address] [place] [address] 1932 [place] [address] Assigned Nephrology Provider 02/20/23 08/30/24 Thom Taveras MD [address] [place] [address], R105 [place] [address] Assigned Cancer Care Provider 02/06/23 08/20/23 Joesph Crowe MD [address] [place] [address] 05366 Surgery 03/17/23 Joesph Crowe MD [address] [place] [address] 86437 Assigned Surgical Provider 04/03/23 09/30/24 Adonay Haq MD [address] [place] [address] 81010 Internal Medicine 06/14/23October, Denilson Jackson MD [address] [facility] [address] [place] [address] Assigned Heart and Vascular Provider 05/29/23 11/28/24 Jason Alvares MD [address] [place] [address]207 Assigned Neuroscience Provider 05/15/23 11/28/24 Ruth Riddle DPM, Podiatry/Foot and Ankle Surgery [address] [place], [place] 782597 Assigned Musculoskeletal Provider 10/22/23 Jignesh Mathias MD [address] [place] [address] 19920 Gastroenterology 09/25/24 Adonay Haq MD [address] [place] [address] 61082 Assigned PCP 10/01/24 12/28/24 Omar Carmona MD [address] [place] [address] 69772 Assigned PCP 12/29/24 Jason Alvares MD [address] 449625 Assigned Neuroscience Provider 12/29/24 Jignesh Mathias MD [address] [place] [address] 66109 Assigned Surgical Provider 12/29/24 Ayad Lopez, PhD LP [address] [place] [address] 410155 Assigned Behavioral Health Provider 02/28/25 Gavi Nieto, PA-C [address] [place] [address] 188815 Physician Ironworker Helper Shop Dermatology 03/19/25 documented as of this encounter
[2025-06-08] MEDS: ONDANSETRON 2 MG/ML inj 4 MG IVP (23:18)
[2025-06-08 23:32] LABS: Hematocrit* 43.3 % (33.0-51.0); Hemoglobin* 14.6 gm/dL (12.0-16.0); Immature Granulocytes Abs Auto 0.02 K/uL (0.00-0.30); Immature Granulocytes Pct Auto 0.4 %; Mean Corpuscular HGB Conc 34 gm/dL (32-36); Mean Corpuscular Hemoglobin 28 pg (26-34); Mean Corpuscular Volume 83 fL (80-100); RDW Coefficient of Variation % 14.4 % (11.5-15.5); Red Blood Count* 5.19 m/uL (4.00-5.20); White Blood Count* 5.52 K/uL (4.50-11.00)
[2025-06-08 23:45] LABS: Albumin* 4.0 g/dL (3.3-5.0); Lymphocytes Absolute Auto 1.00 K/uL (0.90-2.90); Slide Review Reflex No
[2025-06-08 23:48] LABS: Alanine Aminotransferase* 21 U/L (4-35); Aspartate Amino Transferase* 40 U/L (12-35)
[2025-06-08 23:49] LABS: Alkaline Phosphatase* 50 U/L (40-150); Bilirubin Direct* 0.4 mg/dL (0.0-0.5); Bilirubin Total* 1.3 mg/dL (0.1-1.5); Total Protein* 6.8 g/dL (6.0-8.3)
[2025-06-09 01:01] VITALS: BP 131/92; PULSE 70; RESP 17; TEMP 36.4; O2SAT 96
== END 2025-06-09 01:49 | disposition home or self-care (01) ==
PROVIDERS: Emergency Provider Family Medicine
DX: K85.90 Acute pancreatitis without necrosis or infection, unspecified (principal); K80.20 Calculus of gallbladder without cholecystitis without obstruction
CPT/HCPCS: 36415; 76705; 80076; 83690; 85025; 86140; 96361; 96374; 96375; 99284; J1171; J1885; J2405; J7030

== ENCOUNTER 2025-06-10 10:50 | Outpatient (CLI) | payer MEDICARE, BC, SELFPAY | END 2025-06-10 10:51 | disposition home or self-care (01) | LOC: AMB 06-16 13:39 | PROVIDERS: Visit Provider Student in an Organized Health Care Education/Training Program | DX: R11.2 Nausea with vomiting, unspecified (principal) | CPT/HCPCS: A0425; A0427 ==

== ENCOUNTER 2025-06-10 11:25 | Inpatient (IN) | payer BC, MEDICARE, SELFPAY ==
--- OUTSIDE RECORDS SUMMARY | 2021-01-03 18:00 | XMS_ITS | Continuity of Care Document ---
Author Organization [facility] Address [address] [address] [place] [address] Phone Care Team Providers Care System Support Analyst Name Role Phone Arnold Shipman MD Unavailable Unavailable Allergies, Adverse Reactions, Alerts Substance Reaction Status Criticality Sulfa (Sulfonamide Antibiotics) some breathing discom fort Active No Information CEPHALEXIN MONOHYDRATE throat closed Active No Information Medications Medication Instructions Dosage Effective Dates (start - stop) Status Comments Robaxin-750 750 mg Tab 1 tab po bid - Active clindamycin 150 mg Cap Take one tablet b y mouth four times per day - Active omeprazole 20 mg Cap, Delayed Release 1 tab po daily - Active Zocor 20 mg Tab every day - Active Amitriptyline 100 MGTABLET One tablet at bedtime - Active Procedures Procedure Date Init Hosp-da E&m Mod Severity 1 Ugi Endo; W/band Lig Varices Init Hosp-da E&m Mod Severity 1 Sigmoidoscopy Flex; Dx (sep Pr 21 U[facility] Endo; W/insrt Guide Wire [facility] Endo; W/bx 1/mx Level Iv-surg Path Gross/micro 10 Advance Directives Directive Yes / No Effective Date File Name No Information Encounters Encounter Description Practice Location Reason(s) For Visit Diagnoses Date Provider Providers Copied on Encounter [facility], [address] [address], [place], [place], [id number], [place] tel:[phone] [facility] Esophageal varices without bleeding, unspecified esophageal varices type 1 Umberto Barrett. [address] [facility], [facility] [address], [place], [place], [address] , [place]. tel:[phone] Referring Provider: Arnold Shipman MD, [address] [facility] [address], [place], [address] . tel:[phone] In Hosp-da E&m Mod Severity [facility], [address] [address], [place], [place], [address], [place] [phone] [facility] No Information 1 Delilah Alexander. [address] [facility], [address], [id number] , [place]. tel:[phone] Referring Provider: Flaquita Mazariegos MD, [address], [address] . tel:[phone] In Hosp-da E&m Mod Severity [facility], [address] [address], [place], [place], [address], [place] [phone] [facility] No Information 1 Yamil Smith. [address] [facility], [facility] [address], [place], [place], [address] , [place]. tel:[phone] Referring Provider: Rio Jaquez MD, [address] [place] [address], [address]. tel:[phone] [facility], [address] [address], [place], [place], [address], [place] [phone] [facility] Gastritis W/o BleedEsoph Stricture/schat zki RingEsoph Stricture/schat zki RingGastritis W/o Bleed 201 0 Vitaly Gamboa. [address] [facility], [address], [place], [place], [address] , [place]. [phone] Family History Family Member Type Diagnosis Age At Onset No Information Payers Payer name Insurance type Covered green party ID Authoriza tion(s) No Information Social History Type Description Quantity Date Captured Comments Sex Female Smoking Status No Information Chief Complaint And Reason For Visit No Information Reason For Referral Reason For Referral No Information Plan Of Treatment Date Type Action Status Referral Ordered: EGD Appointment date/timeframe: 02/04/2021 ordered History Of Present Illness Encounter Date Complaint History Of Prese nt Illness No Information Functional Status Date Functional Assessmen t No Information Instructions Date Instruction Additional Infor mation No Information Assessments Type Assessment Date assessment Esophageal varices w ithout bleeding, unspecified esophageal varices type Patient Care Teams Name Effective Dates (start - stop) Status Members No Information
--- OUTSIDE RECORDS SUMMARY | 2021-01-03 18:00 | XMS_ITS | Continuity of Care Document ---
Author Organization [facility] Address [address] [address] [place] [address] Phone Care Team Providers Care Superintendent Communications Name Role Phone Arnold Shipman MD Unavailable [...] Encounter [facility], [address] [address], [place], [place], [address], [place] tel:[phone] [facility] Esophageal varices without bleeding, unspecified esophageal varices type 1 Umberto Barrett. [address] [facility], [facility] [address], [place], [place], [address] , [place]. [phone] Referring Provider: Arnold Shipman MD, [address] [facility] [address], [place], [address] . tel:[phone] In Hosp-da E&m Mod Severity [facility], [address] [address], [place], [place], [address], [place] [phone] [facility] No Information 1 Delilah Alexander. [address] [facility], [address], [id number] , [place]. tel: [phone] Referring Provider: Flaquita Mazariegos MD, [address], [address] . tel:[phone] In Hosp-da E&m Mod Severity [facility], [address] [address], [place], [place], [address], [place] [phone] [facility] No Information 1 Yamil Smith. [address] [facility], [facility] [address], [place], [place], [address] , [place]. [phone] Referring Provider: Rio Jaquez MD, [address] [place] [address], [address]. tel:[phone] [facility], [address] [address], [place], [place], [address], [place] [phone] [facility] Gastritis W/o BleedEsoph Stricture/schat zki RingEsoph Stricture/schat zki RingGastritis W/o Bleed 201 0 Vitaly Gamboa. [address] [facility], [address], [place], [place], [address] , [place]. [phone] Family History Family Member Type Diagnosis Age [...]
--- OUTSIDE RECORDS SUMMARY | 2025-04-30 10:00 | XMS_ITS | Encounter Summary ---
Author Organization [facility] Address [address] [place] [address] Care Team Providers Care Bottle Blowing Machine Tender Name Role Phone Barry Kilpatrick MD Unavailable Michelle Henderson RN Unavailable [phone] Rio Jaquez MD Unavailable [phone] Jemima Jaramillo MD Unavailable Unavai Kelley Bautista RN Unavailable [phone] Sydnee Saleem MD Unavailable [phone] Karlene Moya MD Unavailable +[phone] Wilbert Quintero OD Unavailable [phone] Rod Gauthier DPM Unavailable [phone] Jan Mahmood MD Unavailable +[phone] Brandt Quintana MD Unavailable Jan Mahmood MD Unavailable [phone] Dom Eason MD Unavailable +[phone] Jaimie Vernon RN Unavailable Unavailable Marquise Hanley MD Unavailable +[phone] Vlad Ramey MD Unavailable [phone] Joesph Crowe MD Unavailable Michelle Padilla RN Unavailable Unavaila ble Marquise Hanley MD Unavailable Wagner Oliver MD Unavailable [phone] Joesph Crowe MD Unavailable Adonay Haq MD Unavailable [phone] Ruth Riddle DPM, Podiatry /Foot and Ankle Surgery Unavailable Omar Carmona MD Primary Care Provider [phone] Jignesh Mathias MD Unavailable Omar Carmona MD Unavailable Jason Alvarse MD Unavailable Jignesh Mathias MD Unavailable Ayad Lopez PhD LP Unavailable Gavi Nieto PA-C Unavailable [phone] Reason for Visit * Rehab Therapy Occupational Therapy (Routine: Next available opening) - Authorized Specialty Diagnoses / Procedures Referred By Contjackelin t Referred To Contact Occupational Therapy Diagnoses Seizures, post-traumatic (H) [address] [address] Phone: tel: Referral ID Status Reason Start Date Expiration Date V isits Requested Visits Authorized [id number] Authorized 01/09/2025 08/08/2025 60 60 Encounter Details Date Type Department Care Team (Late st Contact Info) Description 04/30/2025 11:00 AM CDT Therapy Visit [address] [address] Jason Alvares MD [address] [place] [address] Chaya Castillo, OTR [facility] [address] [facility] [place] [address] Seizures, post-traumatic (H) (Primary Dx) Social History Tobacco Use Types Packs/Day Years Used Date Smoking Tobacco: Every Day Cigarettes 0.5 42.8 Started: 08/09/1982 Other Smokeless Tobacco: Never Comments:08/10 PPD Alcohol Use Standard Drinks/Week Comments Not Currently 0 (1 standard drink = 0.6 oz pur e alcohol) 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 AUDIT-C Answer Date Recorded Q1: How often do you have a drink containing alc ohol? Never 08/27/2021 Average Number of Drinks Not on file 022 Q3: How often do you have si x or more drinks on one occasion? Never 08/27/2021 PHQ-2 Answer Date Recorded PHQ-2 Score 2 04/11/2025 [facility] - Occupational Stress Questionnaire Answer Date Recorded Do you feel stress - tense, restless, nervous, or anxious, or unable to sleep at night because your mind is troubled all the time - these days? Very much 04/30/2025 Exercise Vital Sign Answer Date Recorde d On average, how many days pe r week do you engage in moderate to strenuous exercise (like a brisk walk)? 3 days 04/30/2025 On average, how many minutes do you engage in exercise at this level? 30 min 04/30/2025 Adolescent Education Answer Date Record ed Getting School Help Needed Not on file 05/08 Social Connections Answer Date Recorded How often do you feel lonely or isolated from th ose around you? Often 04/30/2025 Food Insecurity Answer Date Recorded Within the past 12 months, d id you worry that your food would run out before you got money to buy more? Yes 04/30/2025 Within the past 12 months, d id the food you bought just not last and you didn t have money to get more? No 04/30/2025 Housing Stability Answer Date Recorded Do you have housing? (Housin g is defined as stable permanent housing and does not include staying outside in a car, in a tent, in an abandoned building, in an overnight senior care, or couch-surfing.) Yes 04/30/2025 Are you worried about losing your housing? Yes 04/30/2025 Financial Resource Strain Answer Date R ecorded Within the past 12 months, h ave you or your family members you live with been unable to get utilities (heat, electricity) when it was really needed? No 04/30/2025 Transportation Needs Answer Date Record ed Within the past 12 months, h as lack of transportation kept you from medical appointments, getting your medicines, non-medical meetings or appointments, work, or from getting things that you need? Yes 04/30/2025 Interpersonal Safety Answer Date Record ed Do [...] Sex Assigned at Female 09/12/2020 12:05 PM DIRECT CHILL CASTER Legal Sex Female 3:26 AM DIRECT CHILL CASTER Gender Identity Female 09/12/2020 12:05 PM DIRECT CHILL CASTER Sexual Orientation Straight 12/19/2021 10 :44 AM CDT Occupation Industry Job Start Date Job End Date on disability for FMS Not on file Not on file Not on file disabled Not on file Not on file Not on file documented as of this encounter Plan of Treatment Upcoming Encounters Date Type Department Care Team (Late st Contact Info) Description 06/13/2025 6:00 PM DIRECT CHILL CASTER Ancillary Procedure [facility] Imaging Center CT Clinic [address] [place] [address] Omar Carmona MD [address] [place] [address] 06/14/2025 4:00 PM DIRECT CHILL CASTER Office Visit [facility] Primary Care Clinic [address] [place] [address] mOar Carmona MD [address] [place] [address] 06/15/2025 12:45 PM DIRECT CHILL CASTER [facility] [place] [phone] Jason Alvares MD [address] [place] [address] Chaya Castillo OTR [facility] 150 [place] [address] 06/19/2025 10:30 AM DIRECT CHILL CASTER Virtual Visit [facility] Primary Care Clinic 9 [facility] 4th [place] [phone] Omar Carmona MD [address] [place] [address] 037975 Gerson Santos [facility] 06/26/2025 11:00 AM DIRECT CHILL CASTER Therapy Visit [facility] 150 [place] [phone] Jason Alvares MD [address] [place] [address] Chaya Castillo OTR [facility] 150 [place] [address] 07/09/2025 12:45 PM DIRECT CHILL CASTER Therapy Visit [facility] 150 [place] [phone] Jason Alvares MD [address] [place] [address] Chaya Castillo OTR [facility] 150 [place] [address] 07/18/2025 3:00 PM DIRECT CHILL CASTER Office Visit [facility] Heart [address] [phone] Adonay Chapman APRN BAND REAMER MACHINE OPERATOR 500 [place] [address] 11/05/2025 12:30 PM CDT Lab [facility] Lab [address] [phone] 11/05/2025 1:45 PM CDT Office Visit [facility] Dermatology [address] [phone] Gavi Nieto PAJimmy Dermatology [address] [place] [address] [phone] 11/20/2025 10:30 AM CDT Virtual Visit [address] [phone] Marquise Hanley MD [address] [place] [address] [phone] documented as of this encounter Goals Goal [...] Noted Time PHQ-9 Depression Total Score: 10 04/11/ 025 9:03 AM CDT documented as of this encounter Care Teams Bottle Blowing Machine Tender Relationship Specialty Start Date End Date Omar Carmona MD [address] [place] [address] [phone] PCP - General Family Medicine 07/14/24 Barry Kilpatrick MD 9 [facility] [id number] [place], [place] 9687[address] Neurology 07/19/14 Michelle Henderson I, RN Nurse Coordinator Neurology 07/19/14 Rio Jaquez MD [address] [place] [address] 4 [place], [place] 299915 Family Practice 10/15/14 Jemima Jaramillo MD [address] [place] [address] 4 [place] [address] metal organ pipe maker 11/20/14 Kelley Chin RN [address] [phone] Nurse Coordinator Cardiology 11/04/15 Sydnee Saleem MD [address] [place] [address] 508 [place], [place] 803715 Cardiology 11/04/15 Karlene Moya MD [address] [place] [address] 791965 Ophthalmology 06/24/17 Wilbert Quintero, OD [address] [place] [address] 323955 Optometry 06/24/17 Rod Gauthier, BILLY [address] [place] [address] [phone] Caustics Loader Primary Podiatric Medicine 06/21/18 Jan Mahmood MD 516 [facility] 2A [place] [address] Gastroenterology 11/05/20 Brandt Quintana MD 1414 [place] [address] Resident 11/05/20 Jan Mahmood MD 516 [facility] 2A [place] [address] Assigned Gastroenterology Provider 12/01/20 Dom Eason MD [address] [address] Internal Medicine 12/02/20 Jaimie [place], RN Specialty Adjunct Lecturer Cardiology 10/28/21 Marquise Hanley MD [address] [place] [address] Endocrinology, Diabetes, and Metabolism 03/05/22 Vlad Ramey MD [address] [place] [address] Cardiovascular Disease 05/07/22 Joesph Crowe MD [address] [place] [address] Surgery 05/07/22 Michelle Padilla RN Specialty Adjunct Lecturer Cardiology 07/03/22 Marquise Hanley MD [address] [place] [address] Assigned Endocrinology Provider 08/15/22 Wagner Oliver MD [address] [place] [address] Critical Care 12/15/22 Joesph Crowe MD [address] [place] [address] Surgery 03/17/23 Adonay Haq MD [address] [place] [address] [phone] Internal Medicine 06/14/23 Ruth Riddle DPM, Podiatry/Foot and Ankle Surgery [address] [place], [place] 0[address] Assigned Musculoskeletal Provider 10/22/23 Jignesh Mathias MD [address] [place] [address] [phone] Gastroenterology 09/25/24 Omar Carmona MD [address] [place] [address] 167555 Assigned PCP 12/29/24 Jason Alvares MD [address] [place] [address] 557285 Assigned Neuroscience Provider 12/29/24 Jignesh Mathias MD [address] [place] [address] Assigned Surgical Provider 12/29/24 Ayad Lopez, PhD LP [address] [place] [address] 832185 Assigned Behavioral Health Provider 02/28/25 Gavi Nieto PA-C [address] [place] [address] 750245 Physician Bisque Finisher Dermatology 03/19/25 documented as of this encounter
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
--- OUTSIDE RECORDS SUMMARY | 2025-05-11 08:30 | XMS_ITS | Encounter Summary ---
Author Organization [facility] Address [address] [place] [address] Care Team Providers Care Sebd Teacher Name Role Phone Barry Kilpatrick MD Unavailable Michelle Henderson RN Unavailable [phone] Rio Jaquez MD Unavailable [phone] Jemima Jaramillo MD Unavailable Unavai Kelley Bautista RN Unavailable [phone] Sydnee Saleem MD Unavailable [phone] Karlene Moya MD Unavailable [phone] Wilbert Quintero OD Unavailable [phone] Rod Gauthier DPM Unavailable [phone] Jan Mahmood MD Unavailable [phone] Brandt Quintana MD Unavailable [phone] Jan Mahmood MD Unavailable [phone] Dom Eason MD Unavailable [phone] Jaimie Vernon RN Unavailable Unavailable Marquise Hanley MD Unavailable [phone] Vlad Ramey MD Unavailable [phone] Joesph Crowe MD Unavailable Michelle Padilla RN Unavailable Unavaila ble Marquise Hanley MD Unavailable Wagner Oliver MD Unavailable [phone] Joesph Crowe MD Unavailable Adonay Haq MD Unavailable [phone] Ruth Riddle DPM, Podiatry /Foot and Ankle Surgery Unavailable Omar Carmona MD Primary Care Provider [phone] Jignesh Mathias MD Unavailable Omar Carmona MD Unavailable Jason Alvares MD Unavailable Jignesh Mathias MD Unavailable Ayad Lopez PhD LP Unavailable [phone] Gavi Nieto PA-C Unavailable [phone] Reason for Visit * Rehab Therapy Occupational Therapy (Routine: Next available opening) - Authorized Specialty Diagnoses / Procedures Referred By Contjackelin t Referred To Contact Occupational Therapy Diagnoses Seizures, post-traumatic (H) [address] [address] Phone: tel: Referral ID Status Reason Start Date Expiration Date V isits Requested Visits Authorized [id number] Authorized 01/09/2025 08/08/2025 60 60 Encounter Details Date Type Department Care Team (Late st Contact Info) Description 05/11/2025 9:30 AM CDT Therapy Visit [address] [address] Jason Alvares MD [address] [place] [address] Chaya Castillo, OTR [facility] DENNISE [address] [facility] [place] [address] Seizures, post-traumatic (H) (Primary Dx) Social History [...] Answer Date Recorded PHQ-2 Score 2 05/03/2025 [facility] Occupat ional Health - Occupational [...] in an overnight usp, or couch-surfing.) Yes 04/30/2025 Are you worried [...] Sex Assigned at Female 09/12/2020 12:05 PM PLATE CUTTER Legal Sex Female 3:26 AM PLATE CUTTER Gender Identity Female 09/12/2020 12:05 PM PLATE CUTTER Sexual Orientation Straight 12/19/2021 10 :44 AM CDT Occupation Industry Job Start Date Job End Date on disability for FMS Not on file Not on file Not on file disabled Not on file Not on file Not on file documented as of this encounter Plan of Treatment Upcoming Encounters Date Type Department Care Team (Late st Contact Info) Description 06/13/2025 6:00 PM PLATE CUTTER Ancillary Procedure [facility] [address] [address] Omar Carmona MD [address] [place] [address] 046095 06/14/2025 4:00 PM PLATE CUTTER Office Visit [facility] Primary [facility] Clinic [address] [place] [address] Omar Carmona MD [address] [place] [address] 06/15/2025 12:45 PM PLATE CUTTER Therapy Visit [facility] [address] [facility] [place] [phone] Jason Alvares MD [address] [place] [address] Chaya Castillo OTR [facility] 150 [place] [address] 06/19/2025 10:30 AM PLATE CUTTER Virtual Visit [facility] Primary [facility] Clinic [address] [place] [address] 4th [place] [phone] Omar Carmona MD [address] [place] [address] 510265 Gerson Santos [facility] 06/26/2025 11:00 AM PLATE CUTTER Therapy Visit [facility] 150 [place] [phone] Jason Alvares MD [address] [place] [address] Chaya Castillo OTR [facility] 150 [place] [address] 07/09/2025 12:45 PM PLATE CUTTER Therapy Visit [facility] [address] [place] [phone] Jason Alvares MD [address] [place] [address] Chaya Castillo OTR [facility] [address] [place] [address] 07/18/2025 3:00 PM PLATE CUTTER Office Visit [facility] Heart [address] [phone] Adonay Chapman APRN [facility] 500 [place] [address] 11/05/2025 12:30 PM CDT Lab [facility] Lab [address] [place] [phone] 11/05/2025 1:45 PM CDT Office Visit [facility] Dermatology [address] [place] [phone] Gavi Nieto PAJimmy Dermatology [address] [place] [address] [phone] 11/20/2025 10:30 AM CDT Virtual Visit [address] [phone] Marquise Hanley MD [address] [place] [address] 387355 documented as of this encounter Goals Goal [...] Time PHQ-9 Depression Total Score: 7 05/03/20 10:54 AM CDT documented as of this encounter Care Teams Sebd Teacher Relationship Specialty Start Date End Date Omar Carmona MD [address] [place] [address] [phone] PCP - General Family Medicine 07/14/24 Barry Kilpatrick MD 9 [facility] [id number] [place], [place] 795[address] Neurology 07/19/14 Michelle Henderson I, RN Nurse Coordinator Neurology 07/19/14 Rio Jaquez MD [address] [place] [address] 4 [place], [place] 227655 Family Practice 10/15/14 Jemima Jaramillo MD [address] [place] [address] 4 [place] [address] shop lead 11/20/14 Kelley Chin RN [address] [phone] Nurse Coordinator Cardiology 11/04/15 Sydnee Saleem MD 420 [facility] [address] [place], [place] 0[address] Cardiology 11/04/15 Karlene Moya MD [address] [place] [address] 301345 Ophthalmology 06/24/17 Wilbert Quintero, OD [address] [place] [address] 691945 Optometry 06/24/17 Rod Gauthier, BILLY [address] [place] [address] 165605 Pr Internship Primary Podiatric Medicine 06/21/18 Jan Mahmood MD [address] [facility] [address] [place] [address] Gastroenterology 11/05/20 Brandt Quintana MD [address] [place] [address] Resident 11/05/20 Jan Mahmood MD [address] [facility] [address] [place] [address] Assigned Gastroenterology Provider 12/01/20 Dom Eason MD [address] [address] Internal Medicine 12/02/20 Jaimie Vernon, RN Specialty Overlay Operator Cardiology 10/28/21 Marquise Hanley MD [address] [place] [address] Endocrinology, Diabetes, and Metabolism 03/05/22 Vlad Ramey MD [address] [place] [address] Cardiovascular Disease 05/07/22 Joesph Crowe MD [address] [place] [address] Surgery 05/07/22 Michelle Padilla, RN Specialty Overlay Operator Cardiology 07/03/22 Marquise Hanley MD [address] [place] [address] Assigned Endocrinology Provider 08/15/22 Wagner Oliver MD [address] [place] [address] Critical Care 12/15/22 Joesph Crowe MD [address] [place] [address] Surgery 03/17/23 Adonay Haq MD [address] [place] [address] 195905 Internal Medicine 06/14/23 Ruth Riddle DPM, Podiatry/Foot and Ankle Surgery [address] [place], [place] 39[address] Assigned Musculoskeletal Provider 10/22/23 Jignesh Mathias MD [address] [place] [address] 334425 Gastroenterology 09/25/24 Omar Carmona MD [address] [place] [address] 684535 Assigned PCP 12/29/24 Jason Alvares MD [address] [place] [address] [phone] Assigned Neuroscience Provider 12/29/24 Jignesh Mathias MD [address] [place] [address] Assigned Surgical Provider 12/29/24 Ayad Lopez, PhD LP [address] [place] [address] 427175 Assigned Behavioral Health Provider 02/28/25 Gavi Nieto PA-C [address] [place] [address] 320505 Physician Gettering Operator Dermatology 03/19/25 documented as of this encounter
--- OUTSIDE RECORDS SUMMARY | 2025-05-15 11:30 | XMS_ITS | Encounter Summary ---
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 [facility] Absolute NRBCs <0.03 10e3/uL 05/15/2025 1:52 PM CDT [facility] Blood BLOOD SPECIMEN / Unknown Venipuncture / Unknown 05/15/2025 1:44 PM CDT 05/15/2025 1:47 PM CDT us Omar Carmona MD LAB - BLOOD ORDERABLES Ashly rivera Result [facility] [id number] [place] [address] [address] [facility], [place] [address] * (ABNORMAL) Vitamin D Deficiency (05/15/2025 1:44 [...] intake, and treatment affect the concentration of 21-umrbyru-Lynkykb D. Values may decrease during winter months and increase during summer months. Vitamin D determination is routinely performed by an immunoassay specific for 25 hydroxyvitamin D3. If an individual is on vitamin D2(ergocalciferol) supplementation, please specify 25 [place] vitamin D2 and D3 level determination by LCMSMS test VITD23. Omar Carmona MD LAB - BLOOD ORDERABLES Ashly l Result [facility] [place] [facility] [address], [address] [place] [address] * TSH with free T4 reflex (05/15/2025 1:44 PM CDT) TSH 1.27 0.30 - 4.20 uIU/mL 05/15/2025 2:18 PM CDT [facility] Blood BLOOD SPECIMEN / Unknown Venipuncture / Unknown 05/15/2025 1:44 PM CDT 05/15/2025 1:47 PM CDT Omar Carmona MD LAB - BLOOD ORDERABLES Ashly l Result [facility] [address], [place] [address] * (ABNORMAL) Comprehensive metabolic panel (BMP + Alb, Alk Phos, ALT, AST, Total. Bili, TP) (05/15/2025 1:44 PM CDT) Sodium 143 135 - 145 mmol/L 05/15/2025 2:15 PM CDT [facility] Potassium 4.4 3.4 - 5.3 mmol/L 05/15/2025 2:15 PM CDT [facility] Carbon Dioxide (CO2) 24 22 - 29 mmol/L 05/15/2025 2:15 PM CDT [facility] Anion Gap 11 7 - 15 mmol/L 05/15/2025 2:15 PM CDT [facility] Urea Nitrogen 9.9 6.0 - 20.0 mg/dL 05/15/2025 2:15 PM CDT [facility] Creatinine 0.88 0.51 - 0.95 mg/dL 05/15/2025 2:15 PM CDT [facility] GFR Estimate 77 >60 mL/min/1.7 3m2 05/15/2025 2:15 PM CDT [facility] Comment: Unable to calculate: Creatinine value is outside the detectable level eGFR calculated using 2020 CKD-EPI equation. Calcium 9.8 8.8 - 10.4 mg/dL 05/15/2025 2:15 PM CDT [facility] Chloride 108(H) 98 - 107 mmol/L 05/15/2025 2:15 PM CDT [facility] Glucose 74 70 - 99 mg/dL 05/15/2025 2:15 PM CDT [facility] Alkaline Phosphatase 54 40 - 150 U/L 05/15/2025 2:15 PM CDT [facility] AST 40 0 - 45 U/L 05/15/2025 2:15 PM CDT [facility] ALT 18 0 - 50 U/L 05/15/2025 2:15 PM CDT [facility] Protein Total 7.0 6.4 - 8.3 g/dL 05/15/2025 2:15 PM CDT [facility] Albumin 4.3 3.5 - 5.2 g/dL 05/15/2025 2:15 PM CDT [facility] Bilirubin Total 0.9 <=1.2 mg/dL 05/15/2025 2:15 PM CDT [facility] Blood BLOOD SPECIMEN / Unknown Venipuncture / Unknown 05/15/2025 1:44 PM CDT 05/15/2025 1:47 PM CDT us Omar Carmona MD LAB - BLOOD ORDERABLES Ashly l Result [facility] [address], [facility] [place] [address], [facility] * Parathyroid Hormone Intact (05/15/2025 1:44 PM CDT) Parathyroid Hormone Intact 41 15 - 65 pg/mL 05/16/2025 1:41 PM CDT [facility] Blood BLOOD SPECIMEN / Unknown Venipuncture / Unknown 05/15/2025 1:44 PM CDT 05/15/2025 1:47 PM CDT Narrative [facility] - 05/16/2025 1:41 PM CDT This result was obtained with the [employer] Elecsys PTH STAT assay. This reference range differs from PTH assays used in other [facility] laboratories. Marquise Hanley MD LAB - BLOOD ORDERABLES Final Result [facility] [place] [facility] [address], [address] [place] [address] documented in this encounter Visit Diagnoses Diagnosis Compression fracture of T12 vertebra, sequela- Primary Osteoporotic compression fracture of spine, with routine healing, subsequent encounter Age-related osteoporosis with current pathological fracture, vertebra(e), initial encounter for fracture (H) Vitamin B1 deficiency Other and unspecified manifestations of thiamine deficiency documented in this encounter Additional Health Concerns Infection Onset Date Last Indicated Resolved Time MRSA Comment:Added from external infection. 10/23/2020 10/21/2020 Assessment Noted Time PHQ-9 Depression Total Score: 7 05/03/ 25 10:54 AM CDT documented as of this encounter Care Teams Bolt Machine Operator Relationship Specialty Start Date End Date Omar Carmona MD [address] [place] [address]2881 PCP - General Family Medicine 07/14/24 Barry Kilpatrick MD [address] [place] [address] [id number] [place], [place] [phone] Neurology 07/19/14 Michelle Henderson I, RN Nurse Coordinator Neurology 07/19/14 Rio Jaquez MD [address] [place] [address] [phone] Family Practice 10/15/14 Jemima Jaramillo MD [address] [place] [address]287 bottling line operator 11/20/14 Kelley Chin, TANIA [address] [phone] Nurse Coordinator Cardiology 11/04/15 Sydnee Saleem MD [address] [place] [address] 508 [place], [place] [phone] Cardiology 11/04/15 Karlene Moya MD [address] [place] [address] [phone] Ophthalmology 06/24/17 Wilbert Quintero, OD [address] [place] [address] [phone] Optometry 06/24/17 Rod Gauthier DPM [address] [place] [address] [phone] Advertising Job Titles Primary Podiatric Medicine 06/21/18 Jan Mahmood MD [address] [place] [address] [address] [place] [address] Gastroenterology 11/05/20 Brandt Quintana MD [facility] [place] [address] Resident 11/05/20 Jan Mahmood MD [address] [address] Assigned Gastroenterology Provider 12/01/20 Dom Eason MD [address] [place] [address] 28235 Internal Medicine 12/02/20 Yovani Vernon, TANIA Specialty Ship Boss Cardiology 10/28/21 Marquise Hanley MD [address] [place] [address] 19690 Endocrinology, Diabetes, and Metabolism 03/05/22 Vlad Ramey MD [address] [place] [address] 17796 Cardiovascular Disease 05/07/22 Joesph Crowe MD [address] [place] [address] 25204 Surgery 05/07/22 Michelle Padilla RN Specialty Ship Boss Cardiology 07/03/22 Marquise Hanley MD [address] [place] [address] 29861 Assigned Endocrinology Provider 08/15/22 Wagner Oliver MD [address] [place] [address] Critical Care 12/15/22 Joesph Crowe MD [address] [place] [address] 04152 Surgery 03/17/23 Adonay Haq MD [address] [place] [address] 81852 Internal Medicine 06/14/23 Ruth Riddle DPM, Podiatry/Foot and Ankle Surgery [address] [facility] [place] [address] Assigned Musculoskeletal Provider 10/22/23 Jignesh Mathias MD [address] [place] [address] 85139 Gastroenterology 09/25/24 Omar Carmona MD [address] [place] [address] 90834 Assigned PCP 12/29/24 Jason Alvares MD [address] [place] [address] 79097 Assigned Neuroscience Provider 12/29/24 Jignesh Mathias MD [address] [place] [address] [phone] Assigned Surgical Provider 12/29/24 Ayad Lopez, PhD LP [address] [place] [address] [phone] Assigned Behavioral Health Provider 02/28/25 Gavi Nieto PA-C [address] [place], [place] 200115 Physician Tape Sewing Machine Operator Dermatology 03/19/25 documented as of this encounter
--- OUTSIDE RECORDS SUMMARY | 2025-05-16 10:00 | XMS_ITS | Encounter Summary ---
Author Organization [facility] Address [address] [place] [address] Care Team Providers Care Airplane Pilot Crop Dusting Name Role Phone Barry Kilpatrick MD Unavailable Michelle Henderson RN Unavailable [phone] Rio Jaquez MD Unavailable [phone] Jemima Jaramillo MD Unavailable Unavai Kelley Bautista RN Unavailable [phone] Sydnee Saleem MD Unavailable [phone] Karlene Moya MD Unavailable [phone] Wilbert Quintero OD Unavailable [phone] Rod Gauthier DPM Unavailable [phone] Jan Mahmood MD Unavailable [phone] Brandt Quintana MD Unavailable Jan Mahmood MD Unavailable [phone] Dom Eason MD Unavailable +[phone] Jaimie Vernon RN Unavailable Unavailable Marquise Hanley MD Unavailable +[phone] Vlad Ramey MD Unavailable [phone] Joesph Crowe MD Unavailable Michelle Padilla RN Unavailable Unavaila ble Marquise Hanley MD Unavailable [phone] Wagner [place] MD Unavailable [phone] Joesph Crowe MD Unavailable Adonay Haq MD Unavailable [phone] Ruth Riddle DPM, Podiatry /Foot and Ankle Surgery Unavailable Omar Carmona MD Primary Care Provider [phone] Jignesh Mathias MD Unavailable Omar Carmona MD Unavailable Jason Alvares MD Unavailable Jignesh Mathias MD Unavailable Ayad Lopez PhD LP Unavailable Gavi Nieto PA-C Unavailable [phone] Reason for Visit * Rehab Therapy Occupational Therapy (Routine: Next available opening) - Authorized Specialty Diagnoses / Procedures Referred By Contjackelin t Referred To Contact Occupational Therapy Diagnoses Seizures, post-traumatic (H) [address] [address] Phone: tel: Referral ID Status Reason Start Date Expiration Date V isits Requested Visits Authorized [id number] Authorized 01/09/2025 08/08/2025 60 60 Encounter Details Date Type Department Care Team (Late st Contact Info) Description 05/16/2025 11:00 AM CDT Therapy Visit [address] [address] Jason Alvares MD [address] [place] [address] Chaya Castillo, OTR [facility] DENNISE 150 [facility] [place] [address] Seizures, post-traumatic (H) (Primary Dx) Social History [...] Answer Date Recorded PHQ-2 Score 2 05/03/2025 [facility] of Occupat ional [...] in an overnight fpc, or couch-surfing.) Yes 04/30/2025 Are you worried [...] Assigned at Female 09/12/2020 12:05 PM CORPORATE SALES TRAINER Legal Sex Female 3:26 AM CORPORATE SALES TRAINER Gender Identity Female 09/12/2020 12:05 PM CORPORATE SALES TRAINER Sexual Orientation Straight 12/19/2021 10 :44 AM CDT Occupation Industry Job Start Date Job End Date on disability for FMS Not on file Not on file Not on file disabled Not on file Not on file Not on file documented as of this encounter Plan of Treatment Upcoming Encounters Date Type Department Care Team (Late st Contact Info) Description 06/13/2025 6:00 PM CORPORATE SALES TRAINER Ancillary Procedure [facility] Clinic [address] [address] Omar Carmona MD [address] [place] [address] [phone] 06/14/2025 4:00 PM CORPORATE SALES TRAINER Office Visit [facility] [address] [place] [address] Omar Carmona MD [address] [place] [address] 06/15/2025 12:45 PM CORPORATE SALES TRAINER [facility] [place] [phone] Jason Alvares MD [address] [place] [address] Chaya Castillo [facility]TR [facility] 150 [place] [address] 06/19/2025 10:30 AM CORPORATE SALES TRAINER Virtual Visit [facility] [address] [place] [address] 4th [place] [phone] Omar Carmona MD [address] [place] [address] [phone] Gerson Santos [facility] 06/26/2025 11:00 AM CORPORATE SALES TRAINER Therapy Visit [facility] 150 [place] [phone] Jason Alvares MD [address] [place] [address] Chaya Castillo [facility]TR [facility] 150 [place] [address] 07/09/2025 12:45 PM CORPORATE SALES TRAINER [facility] 150 [place] [phone] Jason Alvares MD [address] [place] [address] Chaya Castillo OTR [facility] 150 [place] [address] 07/18/2025 3:00 PM CORPORATE SALES TRAINER Office Visit [facility] Heart [address] [phone] Adonay Chapman APRN [facility] 500 [place] [address] 11/05/2025 12:30 PM CDT Lab [facility] Lab [address] [place] [phone] 11/05/2025 1:45 PM CDT Office Visit [facility] Dermatology [address] [place] [phone] Gavi Nieto PAJimmy Dermatology [address] [place] [address] [phone] 11/20/2025 10:30 AM CDT Virtual Visit [address] [phone] Marquise Hanley MD [address] [place] [address] [phone] documented as of this encounter Goals Goal [...] documented as of this encounter Care Teams Airplane Pilot Crop Dusting Relationship Specialty Start Date End Date Omar Carmona MD [address] [place] [address] 365235 PCP - General Family Medicine 07/14/24 Barry Kilpatrick MD 9 [facility] [id number] [place], [place] 860665 Neurology 07/19/14 Michelle Henderson I, RN Nurse Coordinator Neurology 07/19/14 Rio Jaquez MD [address] [place] [address] 4 [place], [place] [phone] Family Practice 10/15/14 Jemima Jaramillo MD [address] [place] [address] 4 [place] [address] general education instructor 11/20/14 Kelley Chin RN [address] 932365 Nurse Coordinator Cardiology 11/04/15 Sydnee Saleem MD 420 [facility] 508 [place], [place] 889235 Cardiology 11/04/15 Karlene Moya MD [address] [place] [address] [phone] Ophthalmology 06/24/17 Wilbert Quintero, OD [address] [place] [address] 863465 Optometry 06/24/17 Rod Gauthier, BILLY [address] [place] [address] 760325 Cobol Programmer Primary Podiatric Medicine 06/21/18 Jan Mahmood MD 516 [facility] 2A [place] [address] Gastroenterology 11/05/20 Brandt Quintana MD 1414 [place] [address] Resident 11/05/20 Jan Mahmood MD 516 [facility] 2A [place] [address] Assigned Gastroenterology Provider 12/01/20 Dom Eason MD [address] [address] Internal Medicine 12/02/20 Jaimie Vernon, RN Specialty New Home Sales Consultant Cardiology 10/28/21 Marquise Hanley MD [address] [place] [address] Endocrinology, Diabetes, and Metabolism 03/05/22 Vlad Ramey MD [address] [place] [address] Cardiovascular Disease 05/07/22 Joesph Crowe MD [address] [place] [address] Surgery 05/07/22 Michelle Padilla, RN Specialty New Home Sales Consultant Cardiology 07/03/22 Marquise Hanley MD [address] [place] [address] Assigned Endocrinology Provider 08/15/22 Wagner [place] MD [address] [place] [address] Critical Care 12/15/22 Joesph Crowe MD [address] [place] [address] Surgery 03/17/23 Adonay Haq MD [address] [place] [address] 919155 Internal Medicine 06/14/23 Ruth Riddle DPM, Podiatry/Foot and Ankle Surgery [address] [place], [place] 173787 Assigned Musculoskeletal Provider 10/22/23 Jignesh Mathias MD [address] [place] [address] 311105 Gastroenterology 09/25/24 Omar Carmona MD [address] [place] [address] 865065 Assigned PCP 12/29/24 Jason Alvares MD [address] [place] [address] 734555 Assigned Neuroscience Provider 12/29/24 Jignesh Mathias MD [address] [place] [address] Assigned Surgical Provider 12/29/24 Ayad Lopez, PhD LP [address] [place] [address] 100695 Assigned Behavioral Health Provider 02/28/25 Gavi Nieto PA-C [address] [place] [place] [address] 839615 Physician Pearl Stringer Dermatology 03/19/25 documented as of this encounter
--- OUTSIDE RECORDS SUMMARY | 2025-05-28 09:15 | XMS_ITS | Encounter Summary ---
Author Organization [facility] Address [address] [place] [address]70 Care Team Providers Care Chronometer Assembler And Adjuster Name Role Phone Barry Kilpatrick MD Unavailable Michelle Henderson RN Unavailable [phone] Rio Jaquez MD Unavailable [phone] Jemima Jaramillo MD Unavailable Unavai Kelley Bautista RN Unavailable [phone] Sydnee Saleem MD Unavailable [phone] Karlene Moya MD Unavailable [phone] Wilbert Quintero OD Unavailable +[phone] Rod Gauthier DPM Unavailable [phone] Jan Mahmood MD Unavailable +[phone] Brandt Quintana MD Unavailable [phone] Jan Mahmood MD Unavailable [phone] Dom Eason MD Unavailable [phone] Jaimie Vernon RN Unavailable Unavailable Marquise Hanley MD Unavailable +[phone] Vlad Ramey MD Unavailable [phone] Joesph Crowe MD Unavailable Michelle Padilla RN Unavailable Unavaila ble Marquise Hanley MD Unavailable Wagner Oliver MD Unavailable [phone] Joesph Crowe MD Unavailable Adonay Haq MD Unavailable Ruth Riddle DPM, Podiatry /Foot and Ankle Surgery Unavailable Omar Carmona MD Primary Care Provider Jignesh Mathias MD Unavailable Omar Carmona MD Unavailable Jason Alvares MD Unavailable Jignesh Mathias MD Unavailable Ayad Lopez PhD LP Unavailable Gavi Nieto PA-C Unavailable [phone] Reason for Visit * Rehab Therapy Occupational Therapy (Routine: Next available opening) - Authorized Specialty Diagnoses / Procedures Referred By Contjackelin t Referred To Contact Occupational Therapy Diagnoses Seizures, post-traumatic (H) [address] [address] Phone: tel: Referral ID Status Reason Start Date Expiration Date V isits Requested Visits Authorized [id number] Authorized 01/09/2025 08/08/2025 60 60 Encounter Details Date Type Department Care Team (Late st Contact Info) Description 05/28/2025 10:15 AM CDT Virtual Visit [address] [phone] Omar Carmona MD [address] [place] [address] Chaya Castillo, OTR [facility] 150 [facility] [place] [address] Seizures, post-traumatic (H) (Primary Dx) Social History [...] Answer Date Recorded PHQ-2 Score 2 05/03/2025 [facility] - Occupational [...] Assigned at Female 09/12/2020 12:05 PM MACHINE II ENGRAVER Legal Sex Female 3:26 AM MACHINE II ENGRAVER Gender Identity Female 09/12/2020 12:05 PM MACHINE II ENGRAVER Sexual Orientation Straight 12/19/2021 10 :44 AM CDT Occupation Industry Job Start Date Job End Date on disability for FMS Not on file Not on file Not on file disabled Not on file Not on file Not on file documented as of this encounter Progress Notes * Chaya Castillo OTR - 05/28/2025 10:58 AM CDT Virtual Visit Details Type of service: Video Visit Video Start Time: 10:17am Video End Time:10:58am Originating Location (pt. Location): Home Distant Location (provider location): On-site Platform used for Video Visit: Jeremy documented in this encounter Plan of Treatment Upcoming Encounters Date Type Department Care Team (Late st Contact Info) Description 06/13/2025 6:00 PM MACHINE II ENGRAVER Ancillary Procedure [address] [place] [address] Omar Carmona MD [address] [place] [address] [phone] 06/14/2025 4:00 PM MACHINE II ENGRAVER Office Visit [facility] Primary Care [address] [phone] Omar Carmona MD [address] [place] [address] 280905 06/15/2025 12:45 PM MACHINE II ENGRAVER Therapy Visit [facility] 150 [place] [phone] Jason Alvares MD [address] [place] [address] 084305 Chaya Castillo OTR [facility] 150 [place], [place] 471357 06/19/2025 10:30 AM MACHINE II ENGRAVER Virtual Visit [facility] Care [address] [phone] Omar Carmona MD [address] [place] [address] 895885 Gerson Santos Kofi 06/26/2025 11:00 AM MACHINE II ENGRAVER Therapy Visit [facility] 150 [facility] [place] [phone] Jason Alvares MD [address] [place] [address] 826985 Chaya Castillo OTR [facility] 150 [place], [place] 401057 07/09/2025 12:45 PM MACHINE II ENGRAVER Therapy Visit [facility] Rehabilitation Services [facility] 150 [place] [phone] Jason Alvares MD 420 [facility] 295 [place] [address] Chaya Castillo, OTR [facility] 150 [place] [address] 07/18/2025 3:00 PM MACHINE II ENGRAVER Office Visit [facility] Heart [address] [phone] Adonay Chapman APRN [facility] 500 [place], [place] 514585 11/05/2025 12:30 PM CDT Lab [facility] Lab [address] [place] [phone] 11/05/2025 1:45 PM CDT Office Visit [facility] Dermatology [address] [place] [phone] Gavi Nieto PANavinC Dermatology [address] [place] [address] 11/20/2025 10:30 AM CDT Virtual Visit [address] [address] Marquise Hanley MD [address] [place] [address] 664195 documented as of this encounter Goals Goal [...] documented as of this encounter Care Teams Chronometer Assembler And Adjuster Relationship Specialty Start Date End Date Omar Carmona MD [address] [place] [address] [phone] PCP - General Family Medicine 07/14/24 Barry Kilpatrick MD [address] [place] [address] [id number] [place], [place] 194055 Neurology 07/19/14 Michelle Henderson RN Nurse Coordinator Neurology 07/19/14 Rio Jaquez MD [address] [place] [address] 352945 Family Practice 10/15/14 Jemima Jaramillo MD [address] [place] [address] hypertrichologist 11/20/14 Kelley Chin, TANIA [address] 768745 Nurse Coordinator Cardiology 11/04/15 Sydnee Saleem MD [address] [place] [address] 508 [place], [place] 626155 Cardiology 11/04/15 Karlene Moya MD [address] [place] [address] 924695 Ophthalmology 06/24/17 Wilbert Quintero OD [address] [place] [address] Optometry 06/24/17 Rod Gauthier DPM [address] [place] [address]997 Rn Field Case Manager Primary Podiatric Medicine 06/21/18 Jan Mahmood MD [address] [place] [address] 506985 Gastroenterology 11/05/20 Brandt Quintana MD [address] [place] [address] Resident 11/05/20 Jan Mahmood MD [address] [place] [address]69[address] Assigned Gastroenterology Provider 12/01/20 Dom Eason MD [address] [address] Internal Medicine 12/02/20 Jaimie Vernon, RN Specialty Cad Detailer Cardiology 10/28/21 Marquise Hanley MD [address] [place] [address] 520335 Endocrinology, Diabetes, and Metabolism 03/05/22 Vlad Ramey MD [address] [place] [address] 448105 Cardiovascular Disease 05/07/22 Joesph Crowe MD [address] [place] [address] 45[address] Surgery 05/07/22 Michelle Padilla, RN Specialty Cad Detailer Cardiology 07/03/22 Marquise Hanley MD [address] [place] [address] Assigned Endocrinology Provider 08/15/22 Wagner Oliver MD [address] [place] [address] Critical Care 12/15/22 Joesph Crowe MD [address] [place] [address] 77328 Surgery 03/17/23 Adonay Haq MD [address] [place] [address] 8[address] Internal Medicine 06/14/23 Ruth Riddle DPM, Podiatry/Foot and Ankle Surgery [address] [place] [address] Assigned Musculoskeletal Provider 10/22/23 Jignesh Mathias MD [address] [place] [address] Gastroenterology 09/25/24 Omar Carmona MD [address] [place] [address] 59676 Assigned PCP 12/29/24 Jason Alvares MD 420 [facility] 295 [place] [address] Assigned Neuroscience Provider 12/29/24 Jignesh Mathias MD [address] [place] [address] [phone] Assigned Surgical Provider 12/29/24 Ayad Lopez, PhD LP [address] [place] [address] 453205 Assigned Behavioral Health Provider 02/28/25 Gavi Nieto PANavinC 500 [place], [place] 507275 Physician Gimp Buttonhole Machine Operator Dermatology 03/19/25 documented as of this encounter
--- OUTSIDE RECORDS SUMMARY | 2025-06-05 14:00 | XMS_ITS | Encounter Summary ---
Author Organization [facility] Address [address] [place] [address] Care Team Providers Care Emt B Name Role Phone Barry Kilpatrick MD Unavailable Michelle Henderson RN Unavailable Rio Jaquez MD Unavailable [phone] Jemima Jaramillo MD Unavailable Unavai Kelley Bautista RN Unavailable [phone] Sydnee Saleem MD Unavailable [phone] Karlene Moya MD Unavailable [phone] Wilbert Quintero OD Unavailable [phone] Rod Gauthier DPM Unavailable [phone] Jan Mahmood MD Unavailable [phone] Brandt Quintana MD Unavailable Jan Mahmood MD Unavailable [phone] Dom Eason MD Unavailable [phone] Jaimie Vernon RN Unavailable Unavailable Marquise Hanley MD Unavailable [phone] Vlad Ramey MD Unavailable [phone] Joesph Crowe MD Unavailable [phone] Michelle Padilla RN Unavailable Unavaila ble Marquise Hanley MD Unavailable Wagner Oliver MD Unavailable [phone] Joesph Crowe MD Unavailable Adonay Haq MD Unavailable [phone] Ruth Riddle DPM, Podiatry /Foot and Ankle Surgery Unavailable Omar Carmona MD Primary Care Provider Jignesh Mathias MD Unavailable Omar Carmona MD Unavailable [phone] Jason Alvares MD Unavailable Jignesh Mathias MD Unavailable Ayad Lopez PhD LP Unavailable [phone] Gavi Nieto PA-C Unavailable [phone] Reason for Visit * Rehab Therapy Occupational Therapy (Routine: Next available opening) - Authorized Specialty Diagnoses / Procedures Referred By Contjackelin t Referred To Contact Occupational Therapy Diagnoses Seizures, post-traumatic (H) [address] [address] Phone: tel: Referral ID Status Reason Start Date Expiration Date V isits Requested Visits Authorized [id number] Authorized 01/09/2025 08/08/2025 60 60 Encounter Details Date Type Department Care Team (Late st Contact Info) Description 06/05/2025 3:00 PM CDT Therapy Visit [address] [address] Jason Alvares MD [address] [place] [address] [address] [place], [place] [address] Chaya Castillo, OTR [facility] [place]) DENNISE [address] [facility] [place] [address] Seizures, post-traumatic (H) (Primary Dx) Social History [...] Answer Date Recorded PHQ-2 Score 2 05/03/2025 [facility] - [...] Assigned at Female 09/12/2020 12:05 PM MEDICAL GENETICS DIRECTOR Legal Sex Female 3:26 AM MEDICAL GENETICS DIRECTOR Gender Identity Female 09/12/2020 12:05 PM MEDICAL GENETICS DIRECTOR Sexual Orientation Straight 12/19/2021 10 :44 AM CDT Occupation Industry Job Start Date Job End Date on disability for FMS Not on file Not on file Not on file disabled Not on file Not on file Not on file documented as of this encounter Progress Notes * Chaya Castillo, OTR - 06/05/2025 4:06 PM CDT [facility] OUTPATIENT OCCUPATIONAL THERAPY PLAN OF TREATMENT FOR OUTPATIENT REHABILITATION Patient's Last Name, First Name, Carol Mcdonnell Date of : 1970 Provider's Name [facility] Onset Date: 12/04/24 (referral date) Start of Care Date: 01/16/25 Medical Diagnosis: Dx: R56.1 (ICD-10-CM) - Seizures, post-traumatic (H) OT Treatment Diagnosis: executive dysfunction Plan of Treatment Frequency/Duration:1x/week/90 days Certification date from 06/05/25 To 09/02/25 See note for plan of treatment details and functional goals LETA Perez I CERTIFY THE NEED FOR THESE SERVICES FURNISHED UNDER THIS PLAN OF TREATMENT AND WHILE UNDER MY CARE (Physician attestation of this document indicates review and certification of the therapy plan). Referring Provider: Jason Alvares (cert sent to PCP Dr. Omar Carmona for cosign) Initial Assessment See Epic Evaluation- 01/16/25 PLAN Continue therapy per current plan of care. Beginning/End Dates of Progress Note Reporting Period: 03/12/25 to 06/05/2025 Referring Provider: Jason Alvares 06/05/25 0500 Appointment Info Treating Provider Chaya Castillo OTR/L Visits Used 11 - [facility]; MEDICARE Medical Diagnosis Dx: R56.1 (ICD-10-CM) - Seizures, post-traumatic (H) OT Tx Diagnosis executive dysfunction Other pertinent information going through a divorce; cocommittant psychosocial deficits. reports she is seeing a mental health therapist weekly Progress Note/Certification Start Of Care Date 01/16/25 Onset of Illness/Injury or Date of Surgery 12/04/24 (referral date) Therapy Frequency 1x/week Predicted Duration 90 days Certification date from 06/05/25 Certification date to 09/02/25 Progress Note Due Date 09/02/25 Progress Note Completed Date 03/12/25 OT Goal 1 Goal Identifier coping skills Goal Description Patient will implement 3-5 coping skills including, but not limited to, grounding,mindfullness, cognitive reframing to improve cognitive performance in the setting of emotional stress Rationale In order to consistently apply specific precautions during ADL/IADL performance Goal Progress Goal progressing. Educated and trained patient in various compensatory strategies, including sensory precautions, cognitive fatigue strategies, interest checklist completion and interest exploration, and stress management strategies. Pt demonstrates good application of strategies between sessions but continues to have difficulty with stress/anxiety and sleep. Educated in sleep hygiene strategies to promote improved rest and engagement in daily activities. Initiated education in SSP listening program to further promote self-regulation of ANS for engagement in daily activities andwill train in program once pt has appropriate headphones for completion. Will continue to assess/monitor needs and progress education/training in future sessions as appropriate. Target Date 09/02/25 OT Goal 2 Goal Identifier memory strategies Goal Description The patient will implement 3-5 memory strategies to improve delayed recall, working memory Rationale In order to maximize independence with tasks requiring functional cognition/executive function for school, work, medication or financial mgmt Goal Progress Goal progressing. Educated in memory compensatory strategies, including lifestyle factors (physical and cognitive exercise, diet, vision/hearing, sleep, socialization, mental health) aswell as specific strategies (attention, association, chunking/clustering, visualization, language-based strategies, repetition/rehearsal, organization, and external aids). Initiated cognitive HEP with FM/SET numerical reasoning problems with pt demonstrating improved accuracy with recent tasks. Will plan to further progress education and HEP in future sessions. Target Date 09/02/25 OT Goal 3 Goal Identifier functional cognition/math Goal Description The patient will participate in HEP and treatment targeting functional cognition, specifically math and balancing checkbooks Rationale In order to maximize independence with tasks requiring functional cognition/executive function for school, work, medication or financial mgmt Goal Progress Goal progressing. Initiated cognitive HEP with FM/SET numerical reasoning problems with pt demonstrating improved accuracy with recent tasks. Averages around 80-90% accuracy with use ofcalculator as modification 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 Completed [employer] part 1 numerical reasoning task with 100% accuracy in session and completed WCPA level I with 16/17 accuracy with 3/5 rules followed in 11 min 48 sec. Reports recent improved confidence in completion of number/financial daily activities at home but continues to be challenged by progressive grading of activities. Will plan to further progress education and HEP in future sessions. Target Date 09/02/25 OT Goal 4 Goal Identifier fine motor coordination Goal Description The patient will improve fine motor coordination and speed as measured by the 9-hp Rationale In order to maximize safety and independence with ADL/IADLs Goal Progress Goal met. Educated in repetition/practice and functional use of hands for bilateral hand coordination and strength of flattening press operator/pinch. 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 Subjectively reports significant improvements. With reassessment, demonstrates significant objective improvement. Educated on continuing with daily practice to continue progressing as able for IND with ADLs/IADLs. Pt endorses nofurther intervention needed at this time (as of 04/12/25). Target Date 06/09/25 Date Met 04/12/25 Subjective Report Subjective Report Ciarra reports her week was stressful. She's trying to place boundaries on her relationship with her ex-, which has not been working well. [place] SET numerical reasoning problems are getting easier for her but remain a good challenge overall. She appreciated the sleep hygiene education but has yet to try applying as she isn't sure the best way to do so. She did try changing her sitting position throughout the day so as not to be sitting in her recliner where she sleeps all day long. Objective Measures Objective Measures Objective Measure 1;Objective Measure 2;Objective Measure 3 Objective Measure 1 Objective Measure MOCA Details As of 04/12/25 - Scored (MIS = 13/15) on MoCA 8.2, see flowsheet for details. Was (MIS 5) with MoCA 8.1 on 01/16/25. Objective Measure 2 Objective Measure Plasma Processor/pinch strength Details As of 04/12/25 - R dominant hand: 57# flattening press operator strength (59,56; was 48#), 13# lateral pinch (was 10#), 11# palmar pinch (was 10#). L nondominant hand: 40.5# flattening press operator strength (51,30; was 23), 13# lateral pinch (was 8#), and 12# palmar pinch (was 8#). Measures compared to first assessment on 02/02/25. Objective Measure 3 Objective Measure 9HPT for coordination Details As of 04/12/25 - R hand: 27.9 sec (was 30.9 sec). L hand: 31.2 sec (was 32.4 sec). Measures compared to first assessment on 02/02/25. 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 Required min VCs for completion of SET 25 in session due to difficulty recalling details of fractions converted into decimals. Progressed with issue of SET 26-28 for continuation of HEP. Facilitated review of sleep hygiene strategieswith additional education and training into practical application of strategies, including: creating relaxing bedtime routine with pt providing herself down time or time to unwind leading up to bed rather than thinking/completing activities right up until bedtime, leaving stressful activities/tasks for the next morning rather than before bed, periodically change positions and avoid sitting inthe same recliner that she sleeps in during the day, and think of specific category/focus topic forher brain when trying to fall asleep to reduce racing thoughts. Educated in importance of repetiti on/consistency to promote habit changes. Briefly re-educated in purpose of SSP listening program and issued ordering information for headphones. To further assess executive functioning (planning, organizing, working memory, cognitive flexibility) for return to work skills and completing IADLs, usedthe Weekly Calendar Planning Activity (WCPA) level I version A as a therapeutic tool. Patient given17 appointments/tasks (some fixed and some variable) to enter into a weekly calendar following 5 specific rules that were visual to patient the entire task. Pt completed task by placing fixed appts first, then variable after provided mod VCs for assistance planning/initiating this planning strategy. Pt entered 17/17 tasks, made errors in 1 entry. Error was made in time to complete the task. Pt was able to follow 3/5 rules. Completed in 11 min 48 sec. She had difficulty with time-management/timetracking and ignoring clinical administrator's questions. Provided positive feedback on using highlighting of love information and checking off items to stay organized. The WCPA adult level I version A does not have normative data as it is a simplified modification of the normed level II activity. Will plan to further progress to level II as able in future session to continue progressing planning/organization/prioritization skills. Skilled Intervention Skilled education in compensatory strategies and facilitation of financial manager tasks to promote IND with ADLs/IADLs Patient Response/Progress Ciarra reports she is initially very overwhelmed by WCPA task and doesn't know where to start without assistance today. Goals 1-3 progressing Plan Home program Ed: sensory precautions, cognitive fatigue, interest checklist (trial audiobooks whilereading, stationary bike, kayaking, needlepoint, time with family/travel), stress mangagement (meditation, mindful activities, SSP), sleep hygiene, memory ed/strategies. Problem-solving strategies + activities ([employer] part 1 - 100% with use of calculator), WCPA level I version A (16 accuracy, 3/5 rules in 11 min 48 sec). cognitive HEP: FM/SET (66-100%). Plan for next session f/u SET, sleep hygiene, SSP. Initiate SSP if she brings headphones. more cognitive HEP (more numerical reasoning, apps, math websites). *problem-solving in session - WCPA level II (tried level I 06/05/25), [employer] part 2. Total Session Time Timed Code Treatment Minutes 45 Total Treatment Time (sum of timed and untimed services) 45 Cosigned by Omar Carmona MD at 06/06/2025 9:01 AM CDT Associated attestation - Omar Carmona MD - 06/06/2025 9:01 AM CDT I agree with the information in this note Omar Carmona MD documented in this encounter Plan of Treatment Upcoming Encounters Date Type Department Care Team (Late st Contact Info) Description 06/13/2025 6:00 PM MEDICAL GENETICS DIRECTOR Ancillary Procedure [facility] [address] [place] [phone] Omar Carmona MD [address] [place] [address] [phone] 06/14/2025 4:00 PM MEDICAL GENETICS DIRECTOR Office Visit [facility] [address] [place] [phone] Omar Carmona MD [address] [place] [address] 06/15/2025 12:45 PM MEDICAL GENETICS DIRECTOR Therapy Visit [facility] [address] [place] [phone] Jason Alvares MD [address] [place] [address] [address] [place], [place] [address] Chaya Castillo OTR [facility] [place] [address] [place] [address] 06/19/2025 10:30 AM MEDICAL GENETICS DIRECTOR Virtual Visit [facility] [address] [place] [address] 4th [place] [phone] Omar Carmona MD [address] [place] [address] [phone] Gerson Santos, [facility] 06/26/2025 11:00 AM MEDICAL GENETICS DIRECTOR Therapy Visit [address] [phone] Jason Alvares MD [address] [place] [address]285 Cahya Castillo [facility] [address] [place] [address] 07/09/2025 12:45 PM MEDICAL GENETICS DIRECTOR Therapy Visit [address] [phone] Jason Alvares MD [address] [place] [address] [phone] [facility] [address] [place] [address] 07/18/2025 3:00 PM MEDICAL GENETICS DIRECTOR Office Visit [facility] [address] [phone] Adonay Chapman APRN [address] [phone] 11/05/2025 12:30 PM CDT [facility] [place] [address] [place] [phone] 11/05/2025 1:45 PM CDT Office Visit [facility] [address] [place] [phone] Gavi Nieto PA-C Dermatology [address] [place] [address] 11/20/2025 10:30 AM CDT Virtual Visit [address] [place] [phone] Marquise Hanley MD [address] [place] [address] documented as of this encounter Goals Goal [...] documented as of this encounter Care Teams Emt B Relationship Specialty Start Date End Date Omar Carmona MD [address] [place] [address] PCP - General Family Medicine 07/14/24 Barry Kilpatrick MD [address] [place] [address] [id number] [place] [address] Neurology 07/19/14 Michelle Henderson I, RN Nurse Coordinator Neurology 07/19/14 Rio Jaquez MD [address] [place] [address] [phone] Family Practice 10/15/14 Jemima Jaramillo MD [address] [place] [address]89[address] airline captain 11/20/14 Kelley Chin RN [address] [phone] Nurse Coordinator Cardiology 11/04/15 Sydnee Saleem MD [address] [place], [place] [address] [place], [place] [address] Cardiology 11/04/15 Karlene Moya MD [address] [place] [address] [phone] Ophthalmology 06/24/17 Wilbert Quintero, OD [address] [place] [address] [phone] Optometry 06/24/17 Rod Gauthier DPM [address] [place] [address] [phone] Configuration Management Analyst Primary Podiatric Medicine 06/21/18 Jan Mahmood MD [address] [place] [address] Gastroenterology 11/05/20 Brandt Quintana MD [address] [place] [address] Resident 11/05/20 Jan Mahmood MD [address] [phone] Assigned Gastroenterology Provider 12/01/20 Dom Eason MD [address] [phone] Internal Medicine 12/02/20 Jaimie Vernon, RN Specialty Chemical Processing Equipment Repairer Cardiology 10/28/21 Marquise Hanley MD [address] [place] [address] Endocrinology, Diabetes, and Metabolism 03/05/22 Vlad Ramey MD [address] [place] [address] Cardiovascular Disease 05/07/22 Joesph Crowe MD [address] [place] [address] MD Surgery 05/07/22 Michelle Padilla RN Specialty Chemical Processing Equipment Repairer Cardiology 07/03/22 Marquise Hanley MD [address] [place] [address] Assigned Endocrinology Provider 08/15/22 Wagner Oliver MD [address] [place] [address] Critical Care 12/15/22 Joesph Crowe MD [address] [place] [address] Surgery 03/17/23 Adonay Haq MD [address] [place] [address] Internal Medicine 06/14/23 Ruth Riddle, DPM, Podiatry/Foot and Ankle Surgery [address] [address] Assigned Musculoskeletal Provider 10/22/23 Jignesh Mathias MD [address] [place] [address] Gastroenterology 09/25/24 Omar Carmona MD [address] [place] [address]85 Assigned PCP 12/29/24 Jason Alvares MD [address] [place] [address] Assigned Neuroscience Provider 12/29/24 Jignesh Mathias MD [address] [place] [address] Assigned Surgical Provider 12/29/24 Ayad Lopez, PhD LP [address] [place] [address] 196815 Assigned Behavioral Health Provider 02/28/25 Gavi Nieto, CAROLC [address] [place] [address] Physician Teacher Of The Emotionally Disturbed Dermatology 03/19/25 documented as of this encounter
--- OUTSIDE RECORDS SUMMARY | 2025-06-05 15:15 | XMS_ITS | Encounter Summary ---
Author Organization [facility] Address [address] [place] [address] Care Team Providers Care Exterminator Helper Termite Name Role Phone Barry Kilpatrick MD Unavailable Michelle Henderson RN Unavailable [phone] Rio Jaquez MD Unavailable [phone] Jemima Jaramillo MD Unavailable Unavai Kelley Bautista RN Unavailable [phone] Sydnee Saleem MD Unavailable [phone] Karlene Moya MD Unavailable [phone] Wilbert Quintero OD Unavailable [phone] Rod Gauthier DPM Unavailable [phone] Jan Mahmood MD Unavailable [phone] Brandt Quintana MD Unavailable [phone] Jan Mahmood MD Unavailable [phone] Dom Eason MD Unavailable [phone] Jaimie Vernon RN Unavailable Unavailable Marquise Hanley MD Unavailable [phone] Vlad Ramey MD Unavailable [phone] Joesph Crowe MD Unavailable Michelle Padilla RN Unavailable Unavaila ble Marquise Hanley MD Unavailable [phone] Wagner Oliver MD Unavailable [phone] Joesph Crowe MD Unavailable Adonay Haq MD Unavailable [phone] Ruth Riddle DPM, Podiatry /Foot and Ankle Surgery Unavailable Omar Carmona MD Primary Care Provider [phone] Jignesh Mathias MD Unavailable Omar Carmona MD Unavailable [phone] Jason Alvares MD Unavailable Jignesh Mathias MD Unavailable Ayad Lopez PhD LP Unavailable [phone] Gavi Nieto PA-C Unavailable [phone] Encounter Details Date Type Department Care Team (Late st Contact Info) Description 06/05/2025 4:15 PM CDT Lab [facility] [address] [facility] [address] [place] [address] Alcoholic cirrhosis of liver without ascites (H); Vitamin B1 deficiency Social History Tobacco [...] Date Recorded PHQ-2 Score 2 05/03/2025 [facility] - Occupational [...] in an overnight jail, or couch-surfing.) Yes 04/30/2025 Are you worried [...] Sex Assigned at Female 09/12/2020 12:05 PM PIANO TUNER Legal Sex Female 3:26 AM PIANO TUNER Gender Identity Female 09/12/2020 12:05 PM PIANO TUNER Sexual Orientation Straight 12/19/2021 10 :44 AM CDT Occupation Industry Job Start Date Job End Date on disability for FMS Not on file Not on file Not on file disabled Not on file Not on file Not on file documented as of this encounter Plan of Treatment Upcoming Encounters Date Type Department Care Team (Late st Contact Info) Description 06/13/2025 6:00 PM PIANO TUNER Ancillary Procedure [facility] [address] [phone] Omar Carmona MD [address] [place] [address] 916685 06/14/2025 4:00 PM PIANO TUNER Office Visit [facility] [address] [phone] Omar Carmona MD [address] [place] [address] 431565 06/15/2025 12:45 PM PIANO TUNER Therapy Visit [facility] [address] [phone] Jason Alvares MD [address] [place] [address] 026775 Chaya Castillo OTR [facility] 150 [place] [address] 06/19/2025 10:30 AM PIANO TUNER Virtual Visit [facility] [address] [phone] Omar Carmona MD [address] [place] [address] [facility]Gerson [facility] 06/26/2025 11:00 AM PIANO TUNER [facility] [address] [place] [phone] Jason Alvares MD [address] [place] [address] Chaya Castillo, OTR [address] [address] 07/09/2025 12:45 PM PIANO TUNER Therapy Visit [address] [phone] Jason Alvares MD [address] [place] [address] Chaya Castillo, OTR [address] [address] 07/18/2025 3:00 PM PIANO TUNER Office Visit [facility] [address] [phone] Adonay Chapman APRN [address] [address] 11/05/2025 12:30 PM CDT Lab [facility] [address] [phone] 11/05/2025 1:45 PM CDT Office Visit [facility] [address]rd [place] [phone] Gavi Nieto PA-C Dermatology [address] [place] [address] 11/20/2025 10:30 AM CDT Virtual Visit [address] [phone] Marquise Hanley MD [address]09 [place] [address] documented as of this encounter Goals Goal Patient Goal Type Associated Problems Recent Progress Patient-Stated? Author Quit smoking / using tobacco Lifestyle Rio Will MD Note: 06/25/14 planned quit date documented as of this encounter Procedures Procedure Name Priority Date/Time Associated Diagnosis Comments VITAMIN B1 PLASMA Routine 06/05/2025 4:1 3 PM CDT Vitamin B1 deficiency INR Routine 06/05/2025 4:13 PM CDT Alcoholic cirrhosis of liver without ascites (H) HEPATIC FUNCTION PANEL Routine 06/05/2025 4:13 PM CDT Alcoholic cirrhosis of liver without ascites (H) AFP TUMOR MARKER Routine 06/05/2025 4:13 PM CDT Alcoholic cirrhosis of liver without ascites (H) BASIC METABOLIC PANEL Routine 06/05/2025 4:13 PM CDT Alcoholic cirrhosis of liver without ascites (H) CBC WITH PLATELETS Routine 06/05/2025 4: 13 PM CDT Alcoholic cirrhosis of liver without ascites (H) documented in this encounter Results * (ABNORMAL) Vitamin B1 plasma (06/05/2025 4:13 PM CDT) Vitamin B1 21(H) 4 - 15 nmol/L [...] developed and its performance characteristics determined by [facility]. It has not been cleared or approved by the [place] Food and Drug Administration. This test was performed in a CLIA certified laboratory and is intended for clinical purposes. Performed By: [facility] [employer] [address] [place] [address] Application Architect Manager: Mg Rabago MD, PhD CLIA Number: [id number] Blood STRUCTURE OF RIGHT UPPER LIMB / Unknown Venipuncture / Unknown 06/05/2025 4:13 PM CDT 06/05/2025 4:14 PM CDT Omar Carmona MD LAB - BLOOD ORDERABLES Ashly l Result Performing Organization Address [facility]/ZIP Co de Phone Number [address] [address] [phone] * AFP tumor marker [[id number]] (06/05/2025 4:13 PM CDT) Pathologist [facility] [place] AFP tumor marker 2.5 <=8.3 ng/mL 06/06/2025 11:15 AM CDT [facility] Blood STRUCTURE OF RIGHT UPPER LIMB / Unknown Venipuncture / Unknown 06/05/2025 4:13 PM CDT 06/05/2025 4:14 PM CDT Narrative LABORATORY - 06/06/2025 11:15 AM CDT This result is obtained using the [employer] Elecsys AFP method on the sharyn e801 immunoassay analyzer. Results obtained with different assay methods or kits cannot be used interchangeably. Reference ranges apply to non- females only. us Jignesh Mathias MD LAB - BLOOD ORDERABLES Final Res ult LABORATORY [facility] [address], [address] [place] [address], [facility] * INR [[id number]] (06/05/2025 4:13 PM CDT) Pathologist [facility] INR 1.10 0.85 - 1.15 06/05/2025 7:01 PM CDT [facility] PT 14.6 11.8 - 14.8 Seconds 06/05/2025 7:01 PM CDT [facility] Blood STRUCTURE OF RIGHT UPPER LIMB / Unknown Venipuncture / Unknown 06/05/2025 4:13 PM CDT 06/05/2025 4:14 PM CDT us Jignesh Mathias MD LAB - BLOOD ORDERABLES Final Res ult [facility]OR[facility] [address] Lab (no room number, 1st floor of clinic) [place] [address], [facility] * (ABNORMAL) CBC with platelets [[id number]] (06/05/2025 4:13 PM CDT) Pathologist [facility] WBC Count 6.59 4.00 - 11.00 10e3/uL 06/05/2025 4:54 PM CDT [facility] RBC Count 5.16 3.80 - 5.20 10e6/uL 06/05/2025 4:54 PM CDT [facility] Hemoglobin 14.8 11.7 - 15.7 g/dL 06/05/2025 4:54 PM CDT [facility] Hematocrit 42.8 35.0 - 47.0 % 06/05/2025 4:54 PM CDT [facility] MCV 82.9 78.0 - 100.0 fL 06/05/2025 4:54 PM CDT [facility] MCH 28.7 26.5 - 33.0 pg 06/05/2025 4:54 PM CDT [facility] MCHC 34.6 31.5 - 36.5 g/dL 06/05/2025 4:54 PM CDT [facility] RDW 14.5 10.0 - 15.0 % 06/05/2025 4:54 PM CDT [facility] Platelet Count 79(L) 150 - 450 10e3/uL 06/05/2025 4:54 PM CDT [facility] Blood STRUCTURE OF RIGHT UPPER LIMB / Unknown Venipuncture / Unknown 06/05/2025 4:13 PM CDT 06/05/2025 4:14 PM CDT Narrative [facility] - 06/05/2025 4:54 PM CDT Results consistent with previous, repeat testing unnecessary us Jignesh Mathias MD LAB - BLOOD ORDERABLES Final Res ult [facility] [place] [facility] [address] [place] [address] * Basic metabolic panel [LAB15] (06/05/2025 4:13 PM CDT) Sodium 141 135 - 145 mmol/L 06/06/2025 11:15 AM CDT [facility] Potassium 3.9 3.4 - 5.3 mmol/L 06/06/2025 11:15 AM CDT [facility] Chloride 106 98 - 107 mmol/L 06/06/2025 11:15 AM CDT [facility] Carbon Dioxide (CO2) 25 22 - 29 mmol/L 06/06/2025 11:15 AM CDT [facility] Anion Gap 10 7 - 15 mmol/L 06/06/2025 11:15 AM CDT [facility] Urea Nitrogen 11.5 6.0 - 20.0 mg/dL 06/06/2025 11:15 AM CDT [facility] Creatinine 0.78 0.51 - 0.95 mg/dL 06/06/2025 11:15 AM CDT [facility] GFR Estimate 89 >60 mL/min/1.7 3m2 06/06/2025 11:15 AM CDT [facility] Comment:eGFR calculated usin 2020 CKD-EPI equation. Calcium 9.7 8.8 - 10.4 mg/dL 06/06/2025 11:15 AM CDT [facility] Glucose 94 70 - 99 mg/dL 06/06/2025 11:15 AM CDT [facility] Blood STRUCTURE OF RIGHT UPPER LIMB / Unknown Venipuncture / Unknown 06/05/2025 4:13 PM CDT 06/05/2025 4:14 PM CDT Jignesh Mathias MD LAB - BLOOD ORDERABLES Final Res ult [facility] [address], [address] [place], [place] [address] * (ABNORMAL) Hepatic Panel [LAB20] (06/05/2025 4:13 PM CDT) Protein Total 6.9 6.4 - 8.3 g/dL 06/06/2025 11:15 AM CDT [facility] Albumin 4.3 3.5 - 5.2 g/dL 06/06/2025 11:15 AM CDT [facility] Bilirubin Total 0.9 <=1.2 mg/dL 06/06/2025 11:15 AM CDT [facility] Alkaline Phosphatase 48 40 - 150 U/L 06/06/2025 11:15 AM CDT [facility] AST 40 0 - 45 U/L 06/06/2025 11:15 AM CDT [facility] ALT 21 0 - 50 U/L 06/06/2025 11:15 AM CDT [facility] Bilirubin Direct 0.49(H) 0.00 - 0.45 mg/dL 06/06/2025 11:15 AM CDT [facility] Comment:As of 24, refer ence ranges and trending lines may vary depending on the testing location. Blood STRUCTURE OF RIGHT UPPER LIMB / Unknown Venipuncture / Unknown 06/05/2025 4:13 PM CDT 06/05/2025 4:14 PM CDT Jignesh Mathias MD LAB - BLOOD ORDERABLES Final Res ult [facility] [address], [address] [phone] documented in this encounter Visit Diagnoses Diagnosis Alcoholic cirrhosis of liver without ascites (H) Alcoholic cirrhosis of liver Vitamin B1 deficiency Other and unspecified manifestations of thiamine deficiency documented in this encounter Additional Health Concerns Infection Onset Date Last Indicated Resolved Time MRSA Comment:Added from external infection. 10/23/2020 10/21/2020 Assessment Noted Time PHQ-9 Depression Total Score: 7 05/03/ 25 10:54 AM CDT documented as of this encounter Care Teams Exterminator Helper Termite Relationship Specialty Start Date End Date Omar Carmona MD [address] [place] [address] PCP - General Family Medicine 07/14/24 Barry Kilpatrick MD [address] [place] [address] [id number] [place] [address] Neurology 07/19/14 Michelle Henderson I, TANIA Nurse Coordinator Neurology 07/19/14 Rio Jaquez MD [address] [place] [address] 820915 Family Practice 10/15/14 Jemima Jaramillo MD [address] [place] [address] 68[address] overhauler helper 11/20/14 Kelley Chin, TANIA [address] 433105 Nurse Coordinator Cardiology 11/04/15 Sydnee Saleem MD [address] [place] [address] 508 [place], [place] [phone] Cardiology 11/04/15 Karlene Moya MD [address] [place] [address] Ophthalmology 06/24/17 Wilbert Quintero, OD [address] [place] [address] [phone] Optometry 06/24/17 Rod Gauthier DPM [address] [place] [address] 64[address] Land Examiner Primary Podiatric Medicine 06/21/18 Jan Mahmood MD [address] [place] [address] Gastroenterology 11/05/20 Brandt Quintana MD [address] [place] [address] Resident 11/05/20 Jan Mahmood MD [address] [place] [address] 67795 Assigned Gastroenterology Provider 12/01/20 Dom Eason MD [address] [place] [address] 57350 Internal Medicine 12/02/20 Jaimie Vernon, RN Specialty Human Insights Lead Ads Marketing Cardiology 10/28/21 Marquise Hanley MD [address] [place] [address] 49588 Endocrinology, Diabetes, and Metabolism 03/05/22 Vlad Ramey MD [address] [place] [address] 244225 Cardiovascular Disease 05/07/22 Joesph Crowe MD [address] [place] [address] 17217 Surgery 05/07/22 Michelle Padilla, RN Specialty [employer] Lead Ads Marketing Cardiology 07/03/22 Marquise Hanley MD [address] [place] [address] 20148 Assigned Endocrinology Provider 08/15/22 Wanger Oliver MD [address] [place] [address] Critical Care 12/15/22 Joesph Crowe MD [address] [place] [address] 00508 Surgery 03/17/23 Adonay Haq MD [address] [place] [address] 32210 Internal Medicine 06/14/23 Ruth Riddle DPM, Podiatry/Foot and Ankle Surgery [address] [facility] [place] [place] [address] Assigned Musculoskeletal Provider 10/22/23 Jignesh Mathias MD [address] [place] [address] 92119 Gastroenterology 09/25/24 Omar Carmona MD [address] [place] [address] [phone] Assigned PCP 12/29/24 Jason Alvares MD [address] [place] [address] 08947 Assigned Neuroscience Provider 12/29/24 Jignesh Mathias MD [address] [place] [address] [phone] Assigned Surgical Provider 12/29/24 Ayad Lopez, PhD LP [address] [place] [address] Assigned Behavioral Health Provider 02/28/25 Gavi Nieto PA-C [address] [place] [address] Physician Indoor Sports Centre Manager Dermatology 03/19/25 documented as of this encounter
--- OUTSIDE RECORDS SUMMARY | 2025-06-07 08:30 | XMS_ITS | Encounter Summary ---
Author Organization [facility] Address [address] [place] [address] Care Team Providers Care Coding Director Name Role Phone Barry Kilpatrick MD Unavailable Michelle Henderson RN Unavailable [phone] Rio Jaquez MD Unavailable [phone] Jemima Jaramillo MD Unavailable Unavai Kelley Bautista RN Unavailable [phone] Sydnee Saleem MD Unavailable [phone] Karlene Moya MD Unavailable [phone] Wilbert Quintero OD Unavailable [phone] Rod Gauthier DPM Unavailable [phone] Jan Mahmood MD Unavailable [phone] Brandt Quintana MD Unavailable [phone] Jan Mahmood MD Unavailable [phone] Dom Eason MD Unavailable [phone] Jaimie Vernon RN Unavailable Unavailable Marquise Hanley MD Unavailable [phone] Vlad Ramey MD Unavailable [phone] Joesph Crowe MD Unavailable Michelle Padilla RN Unavailable Unavaila ble Marquise Hanley MD Unavailable [phone] Wagner Oliver MD Unavailable [phone] Joesph Crowe MD Unavailable Adonay Haq MD Unavailable [phone] Ruth RiddleM, Podiatry /Foot and Ankle Surgery Unavailable AngelaOmar nicholson MD Primary Care Provider [phone] Jignesh Mathias MD Unavailable Omar Carmona MD Unavailable Jason Alvares MD Unavailable Jignesh Mathias MD Unavailable Ayad Lopez PhD LP Unavailable Gavi Nieto-C Unavailable [phone] Reason for Visit * Diagnostic Imaging Ultrasound (Routine) - Pending Review Specialty Diagnoses / Procedures Referred By Good zhu Referred To Contact Radiology. Diagnoses Alcoholic cirrhosis of liver without ascites (H) Procedures US Abdomen Limited Jignesh Mathias MD [address] [place] [address] Phone: tel: fax: Referral ID Status Reason Start Date Expiration Date V isits Requested Visits Authorized [id number] Pending Review 12/05/2024 12/05/2025 1 1 Encounter Details Date Type Department Care Team (Latest Contact Info) Description 06/07/2025 9:30 AM CDT Ancillary Procedure [address] [place] [address] Jignesh Mathias MD [address] [place] [address] Alcoholic cirrhosis of liver without ascites (H) Social History Tobacco Use Types Packs/Day [...] Answer Date Recorded PHQ-2 Score 2 05/03/2025 [facility] [...] in an overnight snf, or couch-surfing.) Yes 04/30/2025 Are you worried [...] Sex Assigned at Female 09/12/2020 12:05 PM ENVIRONMENTAL ENGINEERING AIDE Legal Sex Female 3:26 AM ENVIRONMENTAL ENGINEERING AIDE Gender Identity Female 09/12/2020 12:05 PM ENVIRONMENTAL ENGINEERING AIDE Sexual Orientation Straight 12/19/2021 10 :44 AM CDT Occupation Industry Job Start Date Job End Date on disability for FMS Not on file Not on file Not on file disabled Not on file Not on file Not on file documented as of this encounter Plan of Treatment Upcoming Encounters Date Type Department Care Team (Late st Contact Info) Description 06/13/2025 6:00 PM ENVIRONMENTAL ENGINEERING AIDE Ancillary Procedure [facility] [address] [place] [phone] Omar Carmona MD [address] [place] [address] 06/14/2025 4:00 PM ENVIRONMENTAL ENGINEERING AIDE Office Visit [facility] [address] [place] [phone] Omar Carmona MD [address] [place] [address] 229[address] 06/15/2025 12:45 PM ENVIRONMENTAL ENGINEERING AIDE Therapy Visit [facility] [place] [address] [place] [address] Jason Alvares MD [address] [place] [address] 278965 Chaya Castillo, OTR [facility] 150 [place], [place] 635847 06/19/2025 10:30 AM ENVIRONMENTAL ENGINEERING AIDE Virtual Visit [facility] [address] [place] [address] 4th [place] [address] Omar Carmona MD [address] [place] [address] Gerson Santos [facility] 06/26/2025 11:00 AM ENVIRONMENTAL ENGINEERING AIDE Therapy Visit [facility] [address] [place] [phone] Jason Alvares MD [address] [place] [address] 514475 Chaya Castillo, OTR [facility] 150 [place] [address] 07/09/2025 12:45 PM ENVIRONMENTAL ENGINEERING AIDE Therapy [facility] [address] [place] [phone] Jason Alvares MD [address] [place] [address] 823155 Chaya Castillo, OTR [facility] [address] [place] [address] 07/18/2025 3:00 PM ENVIRONMENTAL ENGINEERING AIDE Office Visit [facility] [address] [phone] Adonay Chapman APRN TOBACCO DRYING MACHINE OPERATOR 500 [place], [place] 083135 11/05/2025 12:[address] [facility] [address] [phone] 11/05/2025 1:45 PM CDT Office Visit [facility] [address] [place] [phone] Gavi Nieto PA-C Dermatology [address] [place] [address] [phone] 11/20/2025 10:30 AM CDT Virtual Visit [address] [place] [address] Marquise Hanley MD [address] [place] [address] documented as of this encounter Goals Goal Patient Goal Type Associated Problems Recent Progress Patient-Stated? Author Quit smoking / using tobacco Lifestyle Rio Will MD Note: 06/25/14 planned quit date documented as of this encounter Procedures Procedure Name Priority Date/Time Associated Diagnosis Comments US ABDOMEN LIMITED Routine 06/07/2025 10 :30 AM CDT Alcoholic cirrhosis of liver without ascites (H) documented in this encounter Results * US Abdomen Limited (06/07/2025 10:30 AM CDT) Anatomical Region Laterality Modality Abdomen/Pelvis Ultrasound Impressions 06/08/2025 9:40 AM CDT Impression: 1. Cirrhotic hepatic morphology. No focal suspicious hepatic lesion. a. LI-RADS US Category: US-1 Negative: No US evidence of HCC - VIS-A b. Recommend continued surveillance US in 6 months. 2. Cholelithiasis and 8 mm gallbladder polyp. Recommend continued attention on follow-up. *Recommendations above based on LI-RADS? v2024: https://www.acr.org/Clinical-Resources/Gwzxgrhs-Jarad-nbk-Reference/Re egvujn-jhe-Yvmp-Systems/LI-RADS LASHAUN FINLEY DO Narrative 06/08/2025 9:40 AM CDT Exam: US ABDOMEN LIMITED, 06/08/2025 9:33 AM Indication: Patient at high risk for HCC. HCC screen; Alcoholic cirrhosis of liver without ascites (H) Comparison: 12/06/2023 ultrasound, 03/17/2024 CT Technique: The abdomen was scanned in the standard fashion with specialized ultrasound transducer(s) using both quiñonez scale and limited color/spectral Doppler techniques. Findings: Liver: The liver demonstrates coarsened echotexture and a nodular capsular contour, measuring 15.6 cm in craniocaudal dimension. 5 x 4 x 4 mm anechoic cyst in the left hepatic lobe and a 9 x 10 x 6 mm anechoic cyst in the inferior right hepatic lobe, with correlate findings on comparison CT. The main portal vein is patent with antegrade flow. Recanalized umbilical vein. US visualization score: VIS-A - No or minimal limitations - Limitations if any are unlikely to meaningfully affect sensitivity Gallbladder: The gallbladder is well distended and of normal morphology. Tiny echogenic, shadowing stone within the gallbladder lumen. No wall thickening, pericholecystic fluid, or sonographic De La Vega's sign. 8 x 6 x 7 mm echogenic, nonmobile, nonshadowing polyp within the gallbladder lumen arising from the gallbladder wall, not significantly changed since prior accounting for differences in measurement technique. Bile Ducts: No intra or extrahepatic biliary dilation. The common bile duct measures 4 mm in diameter. Pancreas: Visualized portions of the head and body of the pancreas are unremarkable. Right kidney: Measures 10.6 cm in craniocaudal dimension. Normal cortical thickness and echogenicity. No solid mass, stone, or hydronephrosis. Aorta and IVC: The visualized portions of the aorta and IVC are unremarkable. Fluid: No evidence of ascites or pleural effusions. Procedure Note Lashaun Finley DO - 06/08/2025 Exam: US ABDOMEN LIMITED, 06/08/2025 9:33 AM Indication: Patient at high risk for HCC. HCC screen; Alcoholic cirrhosis of liver without ascites (H) Comparison: 12/06/2023 ultrasound, 03/17/2024 CT Technique: The abdomen was scanned in the standard fashion with specialized ultrasound transducer(s) using both quiñonez scale and limited color/spectral Doppler techniques. Findings: Liver: The liver demonstrates coarsened echotexture and a nodular capsular contour, measuring 15.6 cm in craniocaudal dimension. 5 x 4 x 4 mm anechoic cyst in the left hepatic lobe and a 9 x 10 x 6 mm anechoic cyst in the inferior right hepatic lobe, with correlate findings on comparison CT. The main portal vein is patent with antegrade flow. Recanalized umbilical vein. US visualization score: VIS-A - No or minimal limitations - Limitations if any are unlikely to meaningfully affect sensitivity Gallbladder: The gallbladder is well distended and of normal morphology. Tiny echogenic, shadowing stone within the gallbladder lumen. No wall thickening, pericholecystic fluid, or sonographic De La Vega's sign. 8 x 6 x 7 mm echogenic, nonmobile, nonshadowing polyp within the gallbladder lumen arising from the gallbladder wall, not significantly changed since prior accounting for differences in measurement technique. Bile Ducts: No intra or extrahepatic biliary dilation. The common bile duct measures 4 mm in diameter. Pancreas: Visualized portions of the head and body of the pancreas are unremarkable. Right kidney: Measures 10.6 cm in craniocaudal dimension. Normal cortical thickness and echogenicity. No solid mass, stone, or hydronephrosis. Aorta and IVC: The visualized portions of the aorta and IVC are unremarkable. Fluid: No evidence of ascites or pleural effusions. Impression: 1. Cirrhotic hepatic morphology. No focal suspicious hepatic lesion. a. LI-RADS US Category: US-1 Negative: No US evidence of HCC - VIS-A b. Recommend continued surveillance US in 6 months. 2. Cholelithiasis and 8 mm gallbladder polyp. Recommend continued attention on follow-up. *Recommendations above based on LI-RADS? v2024: https://www.acr.org/Clinical-Resources/Civcizfd-Zxaco-fzn-Reference/Re oyrstu-ikv-Jmzb-Systems/LI-RADS LASHAUN FINLEY DO us Jignesh Mathias MD IMG US ORDERABLES Final Result documented in this encounter Visit Diagnoses Diagnosis Alcoholic cirrhosis of liver without ascites (H) Alcoholic cirrhosis of liver documented in this encounter Additional Health Concerns Infection Onset Date Last Indicated Resolved Time MRSA Comment:Added from external infection. 10/23/2020 10/21/2020 Assessment Noted Time PHQ-9 Depression Total Score: 7 05/03/20 25 10:54 AM CDT documented as of this encounter Care Teams Coding Director Relationship Specialty Start Date End Date Omar Carmona MD 9 [place], [place] [phone] PCP - General Family Medicine 07/14/24 Barry Kilpatrick MD [address] [place] [address] [id number] [place], [place] 019195 Neurology 07/19/14 Michelle Henderson I, RN Nurse Coordinator Neurology 07/19/14 Rio Jaquez MD [address] [place] [address] 569375 Family Practice 10/15/14 Jemima Jaramillo MD [address] [place] [address] 4 [place] [address] director of outreach 11/20/14 Kelley Chin, TANIA [address] [phone] Nurse Coordinator Cardiology 11/04/15 Sydnee Saleem MD [address] [place] [address] 508 [place] [address] Cardiology 11/04/15 Karlene Moya MD [address] [place] [address] Ophthalmology 06/24/17 Wilbert Quintero OD [address] [place] [address] Optometry 06/24/17 Rod Gauthier DPM [address] [place] [address] 63278 Child Guidance Counselor Primary Podiatric Medicine 06/21/18 Jan Mahmood MD [address] [place] [address] Gastroenterology 11/05/20 Brandt Quintana MD [address] [place] [address]252 Resident 11/05/20 Jan Mahmood MD [address] [place] [address] 10349 Assigned Gastroenterology Provider 12/01/20 Dom Eason MD [address] [place] [address]83 Internal Medicine 12/02/20 Jaimie Vernon, RN Specialty Maintenance Dispatcher Cardiology 10/28/21 Marquise Hanley MD [address] [place] [address] Endocrinology, Diabetes, and Metabolism 03/05/22 Vlad Ramey MD [address] [place] [address]167 Cardiovascular Disease 05/07/22 Joesph Crowe MD [address] [place] [address] 26083 Surgery 05/07/22 Michelle Padilla, RN Specialty Maintenance Dispatcher Cardiology 07/03/22 Marquise Hanley MD [address] [place] [address] 51937 Assigned Endocrinology Provider 08/15/22 Wagner Oliver MD [address] [place] [address] Critical Care 12/15/22 Joesph Crowe MD [address] [place] [address] 96921 Surgery 03/17/23 Adonay Haq MD [address] [place] [address] 23367 Internal Medicine 06/14/23 Ruth Riddle DPM, Podiatry/Foot and Ankle Surgery [address] [place] [address] Assigned Musculoskeletal Provider 10/22/23 Jignesh Mathias MD [address] [place] [address] 34882 Gastroenterology 09/25/24 Omar Carmona MD [address] [place] [address] 054395 Assigned PCP 12/29/24 Jason Alvares MD [address] [place] [address] 991965 Assigned Neuroscience Provider 12/29/24 Jignesh Mathias MD [address] [place] [address] 025895 Assigned Surgical Provider 12/29/24 Ayad Lopez, PhD LP [address] [place] [address] [phone] Assigned Behavioral Health Provider 02/28/25 Gavi Nieto, PA-C [address] [place] [address] [phone] Physician Land Economist Dermatology 03/19/25 documented as of this encounter
--- OUTSIDE RECORDS SUMMARY | 2025-06-08 08:00 | XMS_ITS | Encounter Summary ---
Author Organization [facility] Address [address] [place] [address]57 Care Team Providers Care Utilization Engineer Name Role Phone Barry Kilpatrick MD Unavailable Michelle Henderson RN Unavailable [phone] Rio Jaquez MD Unavailable [phone] Jemima Jaramillo MD Unavailable Unavai Kelley Bautista RN Unavailable [phone] Sydnee Saleem MD Unavailable [phone] Karlene Moya MD Unavailable [phone] Wilbert Quintero OD Unavailable [phone] Rod Gauthier DPM Unavailable [phone] Jan Mahmood MD Unavailable [phone] Brandt Quintana MD Unavailable [phone] Jan Mahmood MD Unavailable [phone] Dom Eason MD Unavailable [phone] Jaimie Vernon RN Unavailable Unavailable Marquise Hanley MD Unavailable [phone] Vlad Ramey MD Unavailable [phone] Joesph Crowe MD Unavailable Michelle Padilla RN Unavailable Unavaila ble Marquise Hanley MD Unavailable [phone] Wagner Oliver MD Unavailable + [phone] Joesph Crowe MD Unavailable Adonay Haq MD Unavailable [phone] Ruth RiddleM, Podiatry /Foot and Ankle Surgery Unavailable Omar Carmona MD Primary Care Provider [phone] Jignesh Mathias MD Unavailable Omar Carmona MD Unavailable [phone] Jason Alvares MD Unavailable Jignesh Mathias MD Unavailable Ayad Lopez PhD LP Unavailable [phone] Gavi Nieto-C Unavailable [phone] Reason for Referral * Diagnostic Imaging Ultrasound (Routine) - Pending Review Specialty Diagnoses / Procedures Referred By Good zhu Referred To Contact Radiology. Diagnoses Alcoholic cirrhosis of liver without ascites (H) Procedures US Abdomen Limited Jignesh Mathias MD [address] [place] [address] Phone: tel: fax: Referral ID Status Reason Start Date Expiration Date V isits Requested Visits Authorized [id number] Pending Review 06/08/2025 06/08/2026 1 1 Reason for Visit * Reason Comments RECHECK Follow up visit Encounter Details Date Type Department Care Team (Late st Contact Info) Description 06/08/2025 9:00 AM CDT Office Visit [facility] [address] [address] Jignesh Mathias MD [address] [place] [address] Alcoholic cirrhosis of liver without ascites (H) [...] Date Recorded PHQ-2 Score 2 05/03/2025 [facility] - Occupational Stress Questionnaire Answer [...] an overnight group home, or couch-surfing.) Yes 04/30/2025 Are you [...] Sex Assigned at Female 09/12/2020 12:05 PM PHOTOGRAPHER Legal Sex Female 3:26 AM PHOTOGRAPHER Gender Identity Female 09/12/2020 12:05 PM PHOTOGRAPHER Sexual Orientation Straight 12/19/2021 10 :44 AM CDT Occupation Industry Job Start Date Job End Date on disability for FMS Not on file Not on file Not on file disabled Not on file Not on file Not on file documented as of this encounter Last Filed Vital Signs Vital Sign Reading Time Taken Comments Blood Pressure 118/80 06/08/2025 9:16 AM CDT Pulse 79 06/08/2025 9:16 AM CDT Temperature - - Respiratory Rate 18 06/08/2025 9:16 AM CDT Oxygen Saturation 97% 06/08/2025 9:16 AM CDT Inhaled Oxygen Concentration - - Weight 54.9 kg (121 lb) 06/08/2025 9:16 AM CDT Height 167.6 cm (5' 6) 06/08/2025 9:16 AM CDT Body Mass Index 19.53 06/08/2025 9:16 AM CDT documented in this encounter Progress Notes * Jignesh Mathias MD - 06/08/2025 9:00 AM CDT Hepatology Follow-Up Visit: HISTORY OF PRESENT ILLNESS: I had the pleasure of seeing Carol Arellano for followup in the Liver Clinic at the [facility] on June 08, 2025. Ms Kyle Arellano returns for follow-up of alcoholic cirrhosis. She is doing well. She has abstained from alcohol for some time now and with that almost all of hercomplications of cirrhosis have resolved. She denies any abdominal pain, itching or skin rash and has at most mild fatigue. She denies any increased abdominal girth or lower extremity edema. She has not had any gastrointestinal bleeding or any overt signs hepatic encephalopathy. She currently denies any fevers or chills or shortness of breath. She does have a smoker's cough and is entering a smoking cessation program next week. She denies any nausea or vomiting, diarrhea or constipation. Her appetite has been okay and her weight for the most part has been stable. Medications: Current Facility-Administered Medications[1] Vitals: BP 118/80 Pulse 79 Resp 18 Ht 1.676 m (5' 6) Wt 54.9 kg (121 lb) LMP 10/10/2014 (Approximate) SpO2 97% BMI 19.53 kg/m?? Physical Exam: In general she looks quite well. HEENT exam shows no scleral icterus or temporal muscle wasting. Chest is clear. Abdominal exam shows no increase in girth. No masses or tenderness to palpation are present. Liver is 10 cm in span without left lobe enlargement. No spleen tip is palpable. Extremity exam shows no edema. Skin exam shows no stigmata of chronic liver disease. Neurologic exam shows no asterixis. Labs: Lab Results Component Value Date NA 141 06/05/2025 POTASSIUM 3.9 06/05/2025 CHLORIDE 106 06/05/2025 ANIONGAP 10 06/05/2025 CO2 25 06/05/2025 BUN 11.5 06/05/2025 CR 0.78 06/05/2025 GFRESTIMATED 89 06/05/2025 NEFTALY 9.7 06/05/2025 Lab Results Component Value Date WBC 6.59 06/05/2025 HGB 14.8 06/05/2025 HCT 42.8 06/05/2025 MCV 82.9 06/05/2025 MCH 28.7 06/05/2025 MCHC 34.6 06/05/2025 RDW 14.5 06/05/2025 PLT 79 (L) 06/05/2025 Lab Results Component Value Date ALBUMIN 4.3 06/05/2025 ALKPHOS 48 06/05/2025 AST 40 06/05/2025 BILICONJ 0.0 07/24/2011 Lab Results Component Value Date INR 1.10 06/05/2025 MELD 3.0: 8 at 06/05/2025 4:13 PM MELD-Na: 7 at 06/05/2025 4:13 PM Calculated from: Serum Creatinine: 0.78 mg/dL (Using min of 1 mg/dL) at 06/05/2025 4:13 PM Serum Sodium: 141 mmol/L (Using max of 137 mmol/L) at 06/05/2025 4:13 PM Total Bilirubin: 0.9 mg/dL (Using min of 1 mg/dL) at 06/05/2025 4:13 PM Serum Albumin: 4.3 g/dL (Using max of 3.5 g/dL) at 06/05/2025 4:13 PM INR(ratio): 1.1 at 06/05/2025 4:13 PM Age at listing (hypothetical): 54 years Sex: Female at 06/05/2025 4:13 PM Imaging: Exam: US ABDOMEN LIMITED, 06/08/2025 9:33 AM [...] gallbladder polyp. Recommend continued attention on follow-up. Assessment/Plan: IMPRESSION: Ms Kyle Arellano has well compensated alcohol-related cirrhosis. Her MELD sodium level is down to 7 and she is not experiencing any complications of her liver disease at this point in time. Her ultrasound looks good as well. I will not make any other change to her medical regimen. My plan will be to see her back in the clinic in 6 months with repeat imaging and blood work. I did spend a total of 30 minutes (on the date of the encounter), including 20 minutes of zlti-it-vlft clinic time including counseling. The rest of the time was spent in documentation and review of records. Thank you very much for allowing me to participate in the care of this patient. If you have any questions regarding my recommendations, please do not hesitate to contact me. Sincerely, Jignesh Mathias MD lumber carrier [employer] Executive Flight Superintendent, Solid Organ Transplant Program [facility] [1] Current Outpatient Medications Medication Sig Dispense Refill [...] NIGHT NEEDED FOR SLEEP 100 tablet 3 midodrine (PROAMATINE) 10 MG tablet Take 10 mg by mouth. (Patient not taking: Reported on 05/15/2025) omeprazole (PRILOSEC) [address] capsule Take [...] mcg) by mouth daily. 90 tablet 3 No current facility-administered medications for this visit. documented in this encounter Nursing Notes * Justin Zabala CMA - 06/08/2025 9:00 AM CDT Chief Complaint Patient presents with RECHECK Follow up visit BP 118/80 Pulse 79 Resp 18 Ht 1.676 m (5' 6) Wt 54.9 kg (121 lb) LMP 10/10/2014 (Approximate) SpO2 97% BMI 19.53 kg/m?? Justin Zabala CMA CMA at 9:19 AM on 06/08/2025 documented in this encounter Plan of Treatment Upcoming Encounters Date Type Department Care Team (Late st Contact Info) Description 06/13/2025 6:00 PM PHOTOGRAPHER Ancillary Procedure [facility] [address] [place] [phone] Omar Carmona MD [address] [place] [address] 157595 06/14/2025 4:00 PM PHOTOGRAPHER Office Visit [facility] Primary Care Clinic [address] [place] [phone] Omar Carmona MD [address] [place] [address] 828275 06/15/2025 12:45 PM PHOTOGRAPHER Therapy Visit [facility] Rehabilitation Services [facility] [address] [place] [phone] Jason Alvares MD [address] [place] [address] 295 [place], [place] 350885 Chaya Castillo, WESR [facility] [address] [place] [address] 06/19/2025 10:30 AM PHOTOGRAPHER Virtual Visit [facility] [address] [place] [address] 4[address] [place] [phone] Omar Carmona MD [address] [place] [address] Gerson Santos, [facility] 06/26/2025 11:00 AM PHOTOGRAPHER Therapy Visit [facility] [address] [place] [phone] Jason Alvares MD [address] [place] [address] 228805 Chaya Castillo, OTR [facility] [address] [place] [address] 07/09/2025 12:45 PM PHOTOGRAPHER Therapy Visit [facility] [address] [place] [phone] Jason Alvares MD [address] [place] [address] 010345 Chaya Castillo, OTR [facility] [address] [place] [address] 07/18/2025 3:00 PM PHOTOGRAPHER Office Visit [facility] Heart Clinic [address] [phone] Adonay Chapman APRN [facility] 500 [place], [place] 9106[address] 11/05/2025 12:30 PM CDT Lab [facility] Lab [address] [phone] 11/05/2025 1:45 PM CDT Office Visit [facility] Dermatology Clinic [place] [address] [facility] 3rd [place] [phone] Gavi Nieto PA-C Dermatology [address] [place] [address] 11/20/2025 10:30 AM CDT Virtual Visit [address] [place] [phone] Marquise Hanley MD [address] [place] [address] Scheduled Orders Name Type Priority Associated Diagnoses Orde r Schedule US Abdomen Limited Imaging Routine Alcoholic cirrhosis of liver without ascites (H) Expected: 12/06/2025 (Approximate), Expires: 06/08/2026 Hepatic Panel [LAB20] Lab Routine Alcoholic cirrhosis of liver without ascites (H) Expected: 12/05/2025, Expires: 06/08/2026 Basic metabolic panel [LAB15] Lab Routine Alcoholic cirrhosis of liver without ascites (H) Expected: 12/05/2025, Expires: 06/08/2026 CBC with platelets [BVZ630] Lab Routine Alcoholic cirrhosis of liver without ascites (H) Expected: 12/05/2025, Expires: 06/08/2026 INR [[id number]] Lab Routine Alcoholic cirrhosis of liver without ascites (H) Expected: 12/05/2025, Expires: 06/08/2026 AFP tumor marker [[id number]] Lab Routine Alcoholic cirrhosis of liver without ascites (H) Expected: 12/05/2025, Expires: 06/08/2026 documented as of this encounter Goals Goal Patient Goal Type Associated Problems Recent Progress Patient-Stated? Author Quit smoking / using tobacco Lifestyle Rio Will MD Note: 06/25/14 planned quit date documented as of this encounter Visit Diagnoses Diagnosis Alcoholic cirrhosis of liver without ascites (H)- Primary Alcoholic cirrhosis of liver documented in this encounter Additional Health Concerns Infection Onset Date Last Indicated Resolved Time MRSA Comment:Added from external infection. 10/23/2020 10/21/2020 Assessment Noted Time PHQ-9 Depression Total Score: 7 05/03/20 25 10:54 AM CDT documented as of this encounter Care Teams Utilization Engineer Relationship Specialty Start Date End Date Omar Carmona MD [address] [place] [address] 36842 PCP - General Family Medicine 07/14/24 Barry Kilpatrick MD [address] [place] [address] [id number] [place], [place] [phone] Neurology 07/19/14 Michelle Henderson I, RN Nurse Coordinator Neurology 07/19/14 Rio Jaquez MD [address] [place] [address] 276215 Family Practice 10/15/14 Jemima Jaramillo MD [address] [place] [address] 20963 production weigher 11/20/14 Kelley Chin, TANIA [address] 546425 Nurse Coordinator Cardiology 11/04/15 Sydnee Saleem MD [address] [place] [address] 508 [place], [place] 883715 Cardiology 11/04/15 Karlene Moya MD [address] [place] [address] [phone] Ophthalmology 06/24/17 Wilbert Quintero, OD [address] [place] [address]455 Optometry 06/24/17 Rod Gauthier DPM [address] [place] [address] 892205 Finisher Fine Diamond Dies Primary Podiatric Medicine 06/21/18 Jan Mahmood MD [address] [place] [address] 79274 Gastroenterology 11/05/20 Brandt Quintana MD [address] [place] [address] 23500 Resident 11/05/20 Jan Mahmood MD [address] [place] [address] 42020 Assigned Gastroenterology Provider 12/01/20 Dom Eason MD [address] [place] [address] 118174 Internal Medicine 12/02/20 Jaimie Vernon, RN Specialty Tunnel Drier Operator Cardiology 10/28/21 Marquise Hanley MD [address] [place] [address] 96415 Endocrinology, Diabetes, and Metabolism 03/05/22 Vlad Ramey MD [address] [place] [address] [phone] Cardiovascular Disease 05/07/22 Joesph Crowe MD [address] [place] [address] 090015 Surgery 05/07/22 Michelle Padilla, RN Specialty Tunnel Drier Operator Cardiology 07/03/22 Marquise Hanley MD [address] [place] [address] 47193 Assigned Endocrinology Provider 08/15/22 Wagner Oliver MD [address] [place] [address] Critical Care 12/15/22 Joesph Crowe MD [address] [place] [address] 67226 Surgery 03/17/23 Adonay Haq MD [address] [place] [address] 7[address]62 Internal Medicine 06/14/23 Ruth Riddle DPM, Podiatry/Foot and Ankle Surgery [address] [place] [address] [address] Assigned Musculoskeletal Provider 10/22/23 Jignesh Mathias MD [address] [place] [address] 27259 Gastroenterology 09/25/24 Omar Carmona MD [address] [place] [address] 49567 Assigned PCP 12/29/24 Jason Alvares MD [address] [place] [address] 91815 Assigned Neuroscience Provider 12/29/24 Jignesh Mathias MD [address] [place] [address] Assigned Surgical Provider 12/29/24 Ayad Lopez, PhD LP [address] [place] [address] Assigned Behavioral Health Provider 02/28/25 Gavi Nieto PANavinC [address] [place] [address] Physician Cable Tower Operator Dermatology 03/19/25 documented as of this encounter
[2025-06-10] VITALS (22 sets, daily range): BP systolic 94–137; BP diastolic 60–101; PULSE 68–114; RESP 14–18; TEMP 36.6–36.7; O2SAT 89–94; BMI 18.1
--- OUTSIDE RECORDS SUMMARY | 2025-06-10 11:27 | XMS_ITS | Encounter Summary ---
Author Organization [facility] Address [address] [place] [address] Care Team Providers Care Ampoule Filler And Sealer Name Role Phone Rio Jaquez MD Primary Care Provider + [phone] Barry Kilpatrick MD Unavailable Michelle Henderson RN Unavailable [phone] Rio Jaquez MD Unavailable [phone] Jemima Jaramillo MD Unavailable Unavai Kelley Bautista RN Unavailable [phone] Sydnee Saleem MD Unavailable [phone] Karlene Moya MD Unavailable [phone] Wilbert Quintero OD Unavailable +[phone] Rod GauthierM Unavailable [phone] Nallely Hogue RN Unavailable Unavailable Larisa Vargas RN Unavailable Unavailable Rio Jaquez MD Unavailable +[phone] Ruth Yarbrough MD Unavailable [phone] Francisco Lott MD Unavailable +[phone] Frida Grace MD Unavailable [phone] Sydnee Saleem MD Unavailable [phone] [...] Unavailable +[phone] Thom Taveras MD Unavailable [phone] Joesph Crowe MD Unavailable [phone] Joesph Crowe MD Unavailable [phone] Adonay Haq MD Unavailable [phone] Denilson Srinivasan MD Unavailable +[phone] Jason Alvares MD Unavailable Ruth Riddle DPM, Podiatry /Foot and Ankle Surgery Unavailable Omar Carmona MD Primary Care Provider [phone] Jignesh Mathias MD Unavailable Adonay Haq MD Unavailable [phone] Omar Carmona MD Unavailable [phone] Jason Alvares MD Unavailable Jignesh Mathias MD Unavailable Ayad Lopez PhD LP Unavailable [phone] Gavi Nieto-Keisha Unavailable +[phone] Encounter Details Date Type Department Care Team (Late st Contact Info) Description 12/05/2019 [facility] Medical Advice [facility] Dermatology [address] [place] [phone] [facility] Social History Tobacco Use Types Packs/Day Years Used Date Smoking Tobacco: Every Day Cigarettes 1 42.8 Started: 08/09/1982 Smokeless Tobacco: Never Alcohol Use Standard Drinks/Week Comments Yes 0 (1 standard drink = 0.6 oz pur e alcohol) occ Comments No Sex and Gender Information Value Date Recorded Sex Assigned at Female 09/12/2020 12:05 PM SHUTTLE VAN DRIVER Legal Sex Female 3:26 AM SHUTTLE VAN DRIVER Gender Identity Female 09/12/2020 12:05 PM SHUTTLE VAN DRIVER Sexual Orientation Straight 12/19/2021 10 :44 [...] st Contact Info) Description 06/13/2025 6:00 PM SHUTTLE VAN DRIVER Ancillary Procedure [facility] Imaging Center CT Clinic [address] [phone] Omar Carmona MD [address] [place] [address] 381715 06/14/2025 4:00 PM SHUTTLE VAN DRIVER Office Visit [facility] Primary Care Clinic [address] [address] Omar Carmona MD [address] [place] [address] 946265 06/15/2025 12:45 PM SHUTTLE VAN DRIVER Therapy Visit [facility] Rehabilitation Services [address] [phone] Jason Alvares MD [address] [place] [address] 295 [place], [place] 631225 Chaya Castillo, WESR [facility] 150 [place] [address] 06/19/2025 10:30 AM SHUTTLE VAN DRIVER Virtual Visit [facility] Primary Care [address] [phone] Omar Carmona MD [address] [place] [address] 308935 Gerson Santos, MORENO 06/26/2025 11:00 AM SHUTTLE VAN DRIVER Therapy Visit [address] [phone] Jason Alvares MD [address] [place] [address] 290825 Chaya Castillo, OTR [address] [address] 07/09/2025 12:45 PM SHUTTLE VAN DRIVER Therapy Visit [address] [phone] Jason Alvares MD [address] [place] [address] 342365 Chaya Castillo, OTR [address] [address] 07/18/2025 3:00 PM SHUTTLE VAN DRIVER Office Visit [facility] Heart [address] [phone] Adonay Chapman APRN [facility] 500 [place], [place] 894085 11/05/2025 12:30 PM CDT Lab [facility] Lab [address] 1st [place] [phone] 11/05/2025 1:45 PM CDT Office Visit [facility] Dermatology Clinic [address] 3rd [place] [phone] Gavi Nieto PA-C Dermatology [address] [place] [address] 11/20/2025 10:30 AM CDT Virtual Visit [address] [address] Marquise Hanley MD [address] [place] [address] documented as of this encounter Goals Goal [...] Depression Total Score: 10 019 7:06 AM SHUTTLE VAN DRIVER documented as of this encounter Care Teams Ampoule Filler And Sealer Relationship Specialty Start Date End Date Rio Jaquez MD [address] [place] [address] 4 [place] [address] PCP - General Family Practice 12/02/10 07/13/24 Omar Carmona MD [address] [place] [address] 20838 PCP - General Family Medicine 07/14/24 Barry Kilpatrick MD [address] [place] [address] [id number] [place] [address] Neurology 07/19/14 Michelle Henderson I, RN Nurse Coordinator Neurology 07/19/14 Rio Jaquez MD [address] [place] [address] 4 [place] [address] Family Practice 10/15/14 Jemima Jaramillo MD lan engineer 11/20/14 Kelley Chin, TANIA [facility] [address] [place] [address] 139105 Nurse Coordinator Cardiology 11/04/15 Sydnee Saleem MD 420 [facility] 508 [place], [place] 462945 Cardiology 11/04/15 Karlene Moya MD [address] [place] [address] 073565 Ophthalmology 06/24/17 Wilbert Quintero, PETYE [address] [place] [address] 692905 Optometry 06/24/17 Rod Gauthier DPM [address] [place] [address] 890885 Pattern Keeper Primary Podiatric Medicine 06/21/18 Nallely Hogue, RN Registered Nurse 02/20/19 11/23/22 Larisa Vargas, TANIA Specialty [facility] Magistrate Cardiology 04/18/19 03/06/22 Rio Jaquez MD [address] [place] [address] 879115 Assigned PCP 12/28/19 11/16/20 Ruth Yarbrough MD 420 [facility] 101 [place], [place] 164085 Assigned Endocrinology Provider 05/31/20 09/28/20 Francisco Lott MD [address] [place] [address] 29[address] Assigned Rheumatology Provider 05/31/20 12/13/21 Frida Grace MD [address] [place] [address] JASON ANDERSON [address] Assigned Pediatric Specialist Provider 05/31/20 09/08/20 Sydnee Saleem MD [address] [place] [address] 7[address] Assigned Heart and Vascular Provider 05/31/20 10/22/20 Greg Ortega MD [address] [place] [address]366 Assigned Surgical Provider 06/23/20 12/06/21 Frida Grace MD [address] [place] [address] JASON ANDERSON [address]83 Assigned Surgical Provider 05/31/20 06/22/20 Jan Mahmood MD [address] [place] [address] Gastroenterology 11/05/20 Brandt Quintana MD [address] [place] [address] Resident 11/05/20 Jan Mahmood MD [address] [place] [address] 14827 Assigned Gastroenterology Provider 12/01/20 Rio Jaquez MD [address] [facility] 4 [place], [place] 908235 Assigned PCP 11/17/20 09/30/24 Dom Eason MD [address] [place] [address] 353 [place], [place] 249934 Internal Medicine 12/02/20 Jayla Plaza, RN Specialty [facility] Magistrate Hepatology 01/09/21 02/13/24 Jayla Palza, RN Specialty [facility] Magistrate Hepatology 01/10/21 01/10/21 Sydnee Saleem MD [address] [place] [address] Assigned Heart and Vascular Provider 02/02/21 07/24/22 Phan Coello MD Assigned Neuroscience Provider 02/21/21 11/22/21 Cristian Barragan MD [address]45 [place] [address] Assigned Infectious Disease Provider 02/21/21 03/06/22 Dom Eason MD [address] [place] [address] Assigned Nephrology Provider 04/20/21 01/02/22 Jaimie Vernon, TANIA Specialty [facility] Magistrate Cardiology 10/28/21 Ruth Riddle DPM, Podiatry/Foot and Ankle Surgery [address] [address] Assigned Musculoskeletal Provider 11/30/21 09/30/23 Luis Arrington MD [address] [place] [address]381 Assigned Neuroscience Provider 11/23/21 01/02/22 Jason Alvares MD [address] [place] [address] Assigned Neuroscience Provider 01/03/22 05/15/22 Marquise Hanley MD [address] [place] [address] Endocrinology, Diabetes, and Metabolism 03/05/22 Vlad Ramey MD [address] [place] [address] 34409 Cardiovascular Disease 05/07/22 Joesph Crowe MD [address] [place] [address] 03743 Surgery 05/07/22 Luis Arrington MD [address] [place] [address] 78460 Assigned Neuroscience Provider 05/16/22 05/14/23 Michelle Padilla, TANIA Specialty [facility] Magistrate Cardiology 07/03/22 Vlad Ramey MD [address] [place] [address] 46897 Assigned Heart and Vascular Provider 07/25/22 05/28/23 Marquise Hanley MD 909 [place] [address] Assigned Endocrinology Provider 08/15/22 Dom Eason MD 717 [facility] [address] [place] [address] Assigned Nephrology Provider 11/28/22 02/19/23 Wagner Oliver MD [address] [place] [address] Critical Care 12/15/22 Laura Epperson, LULU 717 [facility] [address] [place] [address] Assigned Nephrology Provider 02/20/23 08/30/24 Thom Taveras MD [address], [address] [place] [address] Assigned Cancer Care Provider 02/06/23 08/20/23 Joesph Crowe MD [address] [place] [address] 21632 Surgery 03/17/23 Joesph Crowe MD [address] [place] [address] 14731 Assigned Surgical Provider 04/03/23 09/30/24 Adonay Haq MD [address] [place] [address] 6[address]80 Internal Medicine 06/14/23OctoberDenilson MD [address] [place] [address] Assigned Heart and Vascular Provider 05/29/23 11/28/24 Jason Alvares MD 420 [facility] 295 [place], [place] 648965 Assigned Neuroscience Provider 05/15/23 11/28/24 Ruth Riddle DPM, Podiatry/Foot and Ankle Surgery [address] [place] [address] Assigned Musculoskeletal Provider 10/22/23 Jignesh Mathias MD [address] [place] [address] 748575 Gastroenterology 09/25/24 Adonay Haq MD [address] [place] [address] 426885 Assigned PCP 10/01/24 12/28/24 Omar Carmona MD [address] [place] [address] 253085 Assigned PCP 12/29/24 Jason Alvares MD 420 [facility] 295 [place] [address] Assigned Neuroscience Provider 12/29/24 Jignesh Mathias MD [address] [place] [address] 39889 Assigned Surgical Provider 12/29/24 Ayad Lopez, PhD LP 516 [place] [address] Assigned Behavioral Health Provider 02/28/25 Gavi Nieto PA-C 500 [place] [address] Physician Calender Roll Operator Dermatology 03/19/25 documented as of this encounter
--- OUTSIDE RECORDS SUMMARY | 2025-06-10 11:27 | XMS_ITS | Encounter Summary ---
Author Organization [place] Address [address] [place] [address] 84852 Care Team Providers Care Order Builder Name Role Phone Rio Jaquez MD Primary Care Provider + [phone] Barry Kilpatrick MD Unavailable Michelle Henderson RN Unavailable [phone] Rio Jaquez MD Unavailable +[phone] Jemima Jaramillo MD Unavailable Unavai Kelley Bautista RN Unavailable +[phone] Sydnee Saleem MD Unavailable +[phone] Karlene Moya MD Unavailable +[phone] Wilbert Quintero OD Unavailable +[phone] Rod GauthierM Unavailable +[phone] Nallely Hogue RN Unavailable Unavailable Larisa Vargas RN Unavailable Unavailable Rio Jaquez MD Unavailable +[phone] Ruth Yarbrough MD Unavailable +[phone] Francisco Lott MD Unavailable +[phone] Frida Grace MD Unavailable +[phone] Sydnee Saleem MD Unavailable +[phone] Greg Ortega MD Unavailable +[phone] Frida Grace MD Unavailable +[phone] Jan Mahmood MD Unavailable Brandt Quintana MD Unavailable Jan Mahmood MD Unavailable Rio Jqauez MD Unavailable +[phone] Dom Eason MD [...] Unavailable +[phone] Thom Taveras MD Unavailable +[phone] Joesph Crowe MD Unavailable +[phone] Joesph Crowe MD Unavailable +[phone] Adonay Haq MD Unavailable +[phone] Denilson Srinivasan MD Unavailable +[phone] Jason Alvares MD Unavailable Ruth Riddle DPM, Podiatry /Foot and Ankle Surgery Unavailable Omar Carmona MD Primary Care Provider +[phone] Jignesh Mathias MD Unavailable Adonay Haq MD Unavailable +[phone] Omar Carmona MD Unavailable +[phone] Jason Alvares MD Unavailable Jignesh Mathias MD Unavailable Ayad Lopez PhD LP Unavailable +[phone] Gavi Nieto-Keisha Unavailable +[phone] Encounter Details Date Type Department Care Team (Late st Contact Info) Description 12/08/2019 MyC Medical Advice [facility] Dermatology [address] [place] [phone] Ashlee Oneil LPN Social History Tobacco Use Types Packs/Day Years Used Date Smoking Tobacco: Every Day Cigarettes 1 42.8 Started: 08/09/1982 Smokeless Tobacco: Never Alcohol Use Standard Drinks/Week Comments Yes 0 (1 standard drink = 0.6 oz pur e alcohol) occ Comments No Sex and Gender Information Value Date Recorded Sex Assigned at Female 09/12/2020 12:05 PM MARITIME GUARD Legal Sex Female 3:26 AM MARITIME GUARD Gender Identity Female 09/12/2020 12:05 PM MARITIME GUARD Sexual Orientation Straight 12/19/2021 10 :44 [...] st Contact Info) Description 06/13/2025 6:00 PM MARITIME GUARD Ancillary Procedure [facility] Imaging Center CT Clinic [address] [phone] Omar Carmona MD [address] [place] [address] [phone] 06/14/2025 4:00 PM MARITIME GUARD Office Visit [facility] Primary Care Clinic [address] [phone] Omar Carmona MD [address] [place] [address] [phone] 06/15/2025 12:45 PM MARITIME GUARD Therapy Visit [facility] Rehabilitation Services [address] [phone] Jason Alvares MD [address] [place] [address] 295 [place], [place] 719515 Chaya Castillo, OTR [facility] [address] [place], [place] 828167 06/19/2025 10:30 AM MARITIME GUARD Virtual Visit [facility] Primary Care [address] [phone] Omar Carmona MD [address] [place] [address] [phone] Gerson Santos, MORENO 06/26/2025 11:00 AM MARITIME GUARD Therapy Visit [facility] [address] [place] [phone] Jason Alvares MD [address] [place] [address] 424655 Chaya Castillo, OTR [address] [address] 07/09/2025 12:45 PM MARITIME GUARD Therapy Visit [address] [phone] Jason Alvares MD [address] [place] [address] 286225 Chaya Castillo, OTR [address] [address] 07/18/2025 3:00 PM MARITIME GUARD Office Visit [facility] Heart [address] [phone] Adonay Chapman APRN [facility] [address] [place], [place] 309705 11/05/2025 12:30 PM CDT Lab [facility] Lab [address] 1st [place] [phone] 11/05/2025 1:45 PM CDT Office Visit [facility] Dermatology Clinic [address] 3rd [place] [phone] Gavi Nieto PA-C Dermatology [address] [place] [address] [phone] 11/20/2025 10:30 AM CDT Virtual Visit [address] [place] [address] Marquise Hanley MD 9 [place] [address] documented as of this encounter Goals Goal [...] Depression Total Score: 10 019 7:06 AM MARITIME GUARD documented as of this encounter Care Teams Order Builder Relationship Specialty Start Date End Date Rio Jaquez MD [address] [place] [address] FL 4 [place] [address] PCP - General Family Practice 12/02/10 07/13/24 Omar Carmona MD [address] [place] [address] PCP - General Family Medicine 07/14/24 Barry Kilpatrick MD [address] [place] [address] [id number] [place] [address] Neurology 07/19/14 Michelle Henderson I, RN Nurse Coordinator Neurology 07/19/14 Rio Jaquez MD [address] [place] [address] 4 [place] [address] Family Practice 10/15/14 Jemima Jaramillo MD prepress manager 11/20/14 Kelley Chin RN [facility] [address] [place] [address] [phone] Nurse Coordinator Cardiology 11/04/15 Sydnee Saleem MD [address] [facility] 508 [place], [place] 475455 Cardiology 11/04/15 Karlene Moya MD [address] [place] [address] [phone] Ophthalmology 06/24/17 Wilbert Quintero, OD [address] [place] [address] 816975 Optometry 06/24/17 Rod Gauthier DPM [address] [place] [address] 889665 Needle Maker Primary Podiatric Medicine 06/21/18 Nallely Hogue, RN Registered Nurse 02/20/19 11/23/22 Larisa Vargas, TANIA Specialty Technology Infusion Specialist Cardiology 04/18/19 03/06/22 Rio Jaquez MD [address] [place] [address] 418135 Assigned PCP 12/28/19 11/16/20 Ruth Yarbrough MD [address] [facility] 101 [place], [place] 918115 Assigned Endocrinology Provider 05/31/20 09/28/20 Francisco Lott MD [address] [place] [address] 00340 Assigned Rheumatology Provider 05/31/20 12/13/21 [place] [address] [place] [address] JASON ANDERSON 35576 Assigned Pediatric Specialist Provider 05/31/20 09/08/20 Sydnee Saleem MD [address] [place] [address] [phone] Assigned Heart and Vascular Provider 05/31/20 10/22/20 Greg Ortega MD [address] [place] [address] 79487 Assigned Surgical Provider 06/23/20 12/06/21 [place] [address] [place] [address] JASON ANDERSON 08721 Assigned Surgical Provider 05/31/20 06/22/20 Jan Mahmood MD [address] [place] [address] 55[address] Gastroenterology 11/05/20 Brandt Quintana MD [address] [place] [address] 34919 Resident 11/05/20 Jan Mahmood MD [address] [place] [address] 17541 Assigned Gastroenterology Provider 12/01/20 Rio Jaquez MD 909 [facility] 4 [place] [address] Assigned PCP 11/17/20 09/30/24 Dom Eason MD [address] [place] [address] 353 [place] [address] Internal Medicine 12/02/20 Jayla Plaza, RN Specialty Technology Infusion Specialist Hepatology 01/09/21 02/13/24 Jayla Plaza, RN Specialty Technology Infusion Specialist Hepatology 01/10/21 01/10/21 Sydnee Saleem MD [address] [place] [address] Assigned Heart and Vascular Provider 02/02/21 07/24/22 Phan [place]ello MD Assigned Neuroscience Provider 02/21/21 11/22/21 Cristian Barragan MD 2945 [place] [address] Assigned Infectious Disease Provider 02/21/21 03/06/22 Dom Eason MD [address] [place] [address] 353 [place] [address] Assigned Nephrology Provider 04/20/21 01/02/22 Jaimie Vernon, RN Specialty Technology Infusion Specialist Cardiology 10/28/21 Ruth Riddle DPM, Podiatry/Foot and Ankle Surgery [address] [place] [address] [place] [address] 89098 Assigned Musculoskeletal Provider 11/30/21 09/30/23 Luis Arrington MD [address] [place] [address] 11561 Assigned Neuroscience Provider 11/23/21 01/02/22 Jason Alvares MD [address] [place] [address] 54447 Assigned Neuroscience Provider 01/03/22 05/15/22 Marquise Hanley MD [address] [place] [address] 00569 Endocrinology, Diabetes, and Metabolism 03/05/22 Vlad Ramey MD [address] [place] [address] [phone] Cardiovascular Disease 05/07/22 Joesph Crowe MD [address] [place] [address] 09058 Surgery 05/07/22 Luis Arrington MD [address] [place] [address] 58977 Assigned Neuroscience Provider 05/16/22 05/14/23 Michelle Padilla, TANIA Specialty Technology Infusion Specialist Cardiology 07/03/22 Vlad Ramey MD [address] [place] [address] 289285 Assigned Heart and Vascular Provider 07/25/22 05/28/23 Marquise Hanley MD 909 [place] [address] Assigned Endocrinology Provider 08/15/22 Dom Eason MD 717 [facility] 353 [place] [address] Assigned Nephrology Provider 11/28/22 02/19/23 Wagner Oliver MD [address] [place] [address] Critical Care 12/15/22 Laura Epperson NP 717 [facility] [address] [place] [address] Assigned Nephrology Provider 02/20/23 08/30/24 Thom Taveras MD [address] [place] [address] Assigned Cancer Care Provider 02/06/23 08/20/23 Joesph Crowe MD [address] [place] [address] 26907 Surgery 03/17/23 Joesph Crowe MD [address] [place] [address] 54816 Assigned Surgical Provider 04/03/23 09/30/24 Adonay Haq MD [address] [place] [address] 15086 Internal Medicine 06/14/23OctoberDenilson MD [address] [facility] [address] [place], [place] 933445 Assigned Heart and Vascular Provider 05/29/23 11/28/24 Jason Alvares MD 420 [facility] 295 [place], [place] 196535 Assigned Neuroscience Provider 05/15/23 11/28/24 Ruth Riddle DPM, Podiatry/Foot and Ankle Surgery [address] [place] [place], [place] 373067 Assigned Musculoskeletal Provider 10/22/23 Jignesh Mathias MD [address] [place] [address] 880975 Gastroenterology 09/25/24 Adonay Haq MD [address] [place] [address] 137535 Assigned PCP 10/01/24 12/28/24 Omar Carmona MD [address] [place] [address] 934455 Assigned PCP 12/29/24 Jason Alvares MD [address] [place] [address] 295 [place] [address] Assigned Neuroscience Provider 12/29/24 Jignesh Mathias MD [address] [place] [address] 13300 Assigned Surgical Provider 12/29/24 Ayad Lopez, PhD LP [address] [place] [address] 42461 Assigned Behavioral Health Provider 02/28/25 Gavi Nieto PA-C [address] [place] [address] Physician Windows Desktop Engineer Dermatology 03/19/25 documented as of this encounter
--- OUTSIDE RECORDS SUMMARY | 2025-06-10 11:27 | XMS_ITS | Encounter Summary ---
Author Organization [place] Address [address] [place] [address] 10149 Care Team Providers Care Computer System Specialist Name Role Phone Rio Jaquez MD Primary Care Provider + [phone] Barry Kilpatrick MD Unavailable Michelle Henderson RN Unavailable [phone] Rio Jaquez MD Unavailable +[phone] Jemima Jaramillo MD Unavailable Unavai Kelley Bautista RN Unavailable +[phone] Sydnee Saleem MD Unavailable +[phone] Karlene Moya MD Unavailable [phone] Wilbert Quintero OD Unavailable +[phone] Rod GauthierM Unavailable +[phone] Nallely Hogue RN Unavailable Unavailable Larisa Vargas RN Unavailable Unavailable Rio Jaquez MD Unavailable +[phone] Ruth Yarbrough MD Unavailable +[phone] Francisco Lott MD Unavailable +[phone] Frida Grace MD Unavailable +[phone] [...] Unavailable +[phone] Thom Taveras MD Unavailable +[phone] Joesph Crowe MD Unavailable +[phone] Joesph Crowe MD Unavailable +[phone] Adonay Haq MD Unavailable [phone] [facility] +[phone] Jason Alvares MD Unavailable Ruth Riddle DPM, Podiatry /Foot and Ankle Surgery Unavailable Omar Carmona MD Primary Care Provider [phone] Jignesh Mathias MD Unavailable Adonay Haq MD Unavailable +[phone] Omar Carmona MD Unavailable +[phone] Jason Alvares MD Unavailable Jignesh Mathias MD Unavailable Ayad Lopez PhD LP Unavailable +[phone] Gavi Nieto-C Unavailable +[phone] Encounter Details Date Type Department Care Team (Late st Contact Info) Description 11/28/2019 [facility] [address] [place] [phone] Rio Jaquez MD [address] [place] [address] Tinea corporis (Primary Dx) Social History Tobacco Use Types Packs/Day Years Used Date Smoking Tobacco: Every Day Cigarettes 1 42.8 Started: 08/09/1982 Smokeless Tobacco: Never Alcohol Use Standard Drinks/Week Comments Yes 0 (1 standard drink = 0.6 oz pur e alcohol) occ Comments No Sex and Gender Information Value Date Recorded Sex Assigned at Female 09/12/2020 12:05 PM EQUIPMENT MAINTENANCE ENGINEER Legal Sex Female 3:26 AM EQUIPMENT MAINTENANCE ENGINEER Gender Identity Female 09/12/2020 12:05 PM EQUIPMENT MAINTENANCE ENGINEER Sexual Orientation Straight 12/19/2021 10 :44 [...] Contact Info) Description 06/13/2025 6:00 PM EQUIPMENT MAINTENANCE ENGINEER Ancillary Procedure [facility] Imaging Center CT Clinic [address] [phone] Omar Carmona MD [address] [place] [address] 320825 06/14/2025 4:00 PM EQUIPMENT MAINTENANCE ENGINEER Office Visit [facility] Care [address] [phone] Omar Carmona MD [address] [place] [address] 474875 06/15/2025 12:45 PM EQUIPMENT MAINTENANCE ENGINEER Therapy Visit [facility] Rehabilitation Services [address] [phone] Jason Alvares MD [address] [place] [address] 418625 Chaya Castillo OTR [address] [address] 06/19/2025 10:30 AM EQUIPMENT MAINTENANCE ENGINEER Virtual Visit [facility] Primary Care [address] [phone] Omar Carmona MD [address] [place] [address] 296375 Gerson Santos, [facility] 06/26/2025 11:00 AM EQUIPMENT MAINTENANCE ENGINEER Therapy Visit [address] [phone] Jason Alvares MD [address] [place] [address] Chaya Castillo OTR [address] [address] 07/09/2025 12:45 PM EQUIPMENT MAINTENANCE ENGINEER Therapy Visit [address] [phone] Jason Alvares MD [address] [place] [address] 732725 Chaya Castillo OTR [address] [address] 07/18/2025 3:00 PM EQUIPMENT MAINTENANCE ENGINEER Office Visit [facility] Heart Clinic [address] [phone] Adonay Chapman APRN [address] [address] 11/05/2025 12:30 PM CDT Lab [facility] Lab [address] [phone] 11/05/2025 1:45 PM CDT Office Visit [facility] Dermatology Clinic [address] 3rd [place] [phone] Gavi Nieto PA-C Dermatology [address] [place] [address] 11/20/2025 10:30 AM CDT Virtual Visit [address] [phone] Marquise Hanley MD 909 [place] [address] documented as of this encounter Goals Goal [...] Depression Total Score: 10 019 7:06 AM EQUIPMENT MAINTENANCE ENGINEER documented as of this encounter Care Teams Computer System Specialist Relationship Specialty Start Date End Date Rio Jaquez MD [address] [place] [address] [address] 4 [place] [address] PCP - General Family Practice 12/02/10 07/13/24 Omar Carmona MD [address] [place] [address] 64729 PCP - General Family Medicine 07/14/24 Barry Kilpatrick MD [address] [place] [address] [id number] [place] [address] Neurology 07/19/14 Michelle Henderson I, RN Nurse Coordinator Neurology 07/19/14 Rio Jaquez MD [address] [place] [address] 854205 Family Practice 10/15/14 Jemima Jaramillo MD podiatric foot and ankle specialist 11/20/14 Kelley Chin, TANIA [address] 429975 Nurse Coordinator Cardiology 11/04/15 Sydnee Saleem MD [address] [place], [place] [address] [place] 380025 Cardiology 11/04/15 Karlene Moya MD [address] [place] [address] 410555 Ophthalmology 06/24/17 Wilbert Quintero, OD [address] [place] [address] 705955 Optometry 06/24/17 Rod Gauthier DPM [address] [place] [address] 933645 Residential Energy Auditor Primary Podiatric Medicine 06/21/18 Nallely Hogue, RN Registered Nurse 02/20/19 11/23/22 Larisa Vargas, TANIA Specialty Forging Press Operator Cardiology 04/18/19 03/06/22 Rio Jaquez MD [address] [place] [address] 900175 Assigned PCP 12/28/19 11/16/20 Ruth Yarbrough MD 420 [facility] 101 [place] [address] Assigned Endocrinology Provider 05/31/20 09/28/20 Francisco Lott MD [address] 097995 Assigned Rheumatology Provider 05/31/20 12/13/21 Frida Grace MD [address] [place] [address] JASON ANDERSON 63693 Assigned Pediatric Specialist Provider 05/31/20 09/08/20 Sydnee Saleem MD [address] [place] [address] 77234 Assigned Heart and Vascular Provider 05/31/20 10/22/20 Greg Ortega MD [address] [place] [address] 82380 Assigned Surgical Provider 06/23/20 12/06/21 Frida Grace MD [address] [place] [address] JASON ANDERSON 17335 Assigned Surgical Provider 05/31/20 06/22/20 Jan Mahmood MD [address] [address] Gastroenterology 11/05/20 Brandt Quintana MD 1414 [place] [address] Resident 11/05/20 Jan Mahmood MD 516 [facility] [address] [place], [place] 437225 Assigned Gastroenterology Provider 12/01/20 Rio Jaquez MD 909 [facility] [address] 4 [place], [place] 931505 Assigned PCP 11/17/20 09/30/24 Dom Eason MD [address] [place] [address] 353 [place] [address] Internal Medicine 12/02/20 Jayla Plaza, RN Specialty Forging Press Operator Hepatology 01/09/21 02/13/24 Jayla Plaza, RN Specialty Forging Press Operator Hepatology 01/10/21 01/10/21 Sydnee Saleem MD [address] [place] [address] [phone] Assigned Heart and Vascular Provider 02/02/21 07/24/22 Phan Coello MD Assigned Neuroscience Provider 02/21/21 11/22/21 Cristian Barragan MD 2945 [place] [address] Assigned Infectious Disease Provider 02/21/21 03/06/22 Dom Eason MD [address] [place] [address] 353 [place], [place] 936574 Assigned Nephrology Provider 04/20/21 01/02/22 Jaimie Vernon, TANIA Specialty Forging Press Operator Cardiology 10/28/21 Ruth Riddle, DPM, Podiatry/Foot and Ankle Surgery [address] [place] [address] [place] [address] 66822 Assigned Musculoskeletal Provider 11/30/21 09/30/23 Luis Arrington MD [address] [place] [address] 53021 Assigned Neuroscience Provider 11/23/21 01/02/22 Jason Alvares MD [address] [place] [address] 58775 Assigned Neuroscience Provider 01/03/22 05/15/22 Marquise Hanley MD [address] [place] [address] 66857 Endocrinology, Diabetes, and Metabolism 03/05/22 Vlad Ramey MD [address] [place] [address] 01577 Cardiovascular Disease 05/07/22 Joesph Crowe MD [address] [place] [address] 68860 Surgery 05/07/22 Luis Arrington MD [address] [place] [address] 97694 Assigned Neuroscience Provider 05/16/22 05/14/23 Michelle Padilla RN Specialty Forging Press Operator Cardiology 07/03/22 Vlad Ramey MD 909 [place] [address] Assigned Heart and Vascular Provider 07/25/22 05/28/23 Marquise Hanley MD [address] [place] [address] 02856 Assigned Endocrinology Provider 08/15/22 Dom Eason MD 7 [facility] 353 [place] [address] Assigned Nephrology Provider 11/28/22 02/19/23 Wagner Oliver MD [address] [place] [address] Critical Care 12/15/22 Laura Epperson NP [address] [place] [address] [facility] [address] [place] [address] Assigned Nephrology Provider 02/20/23 08/30/24 Thom Taveras MD [address] [place] [address] Assigned Cancer Care Provider 02/06/23 08/20/23 Joesph Crowe MD [address] [place] [address] 45936 Surgery 03/17/23 Joesph Crowe MD [address] [place] [address] 77690 Assigned Surgical Provider 04/03/23 09/30/24 Adonay Haq MD 9 [place] [address] Internal Medicine 06/14/23OctoberDenilson MD [address] [facility] [address] [place] [address] Assigned Heart and Vascular Provider 05/29/23 11/28/24 Jason Alvares MD 420 [facility] 295 [place], [place] 843495 Assigned Neuroscience Provider 05/15/23 11/28/24 Ruth Riddle DPM, Podiatry/Foot and Ankle Surgery [address] [place], [place] 557157 Assigned Musculoskeletal Provider 10/22/23 Jignesh Mathias MD [address] [place] [address] 492205 Gastroenterology 09/25/24 Adonay Haq MD [address] [place] [address] 21661 Assigned PCP 10/01/24 12/28/24 Omar Carmona MD [address] [place] [address] 20427 Assigned PCP 12/29/24 Jason Alvares MD [address] [address] Assigned Neuroscience Provider 12/29/24 Jignesh Mathias MD 909 [place] [address] Assigned Surgical Provider 12/29/24 Ayad Lopez, PhD LP [address] [place] [address] 93646 Assigned Behavioral Health Provider 02/28/25 Gavi Nieto PA-C [address] [place] [address] 691015 Physician Neon Technician Dermatology 03/19/25 documented as of this encounter
--- OUTSIDE RECORDS SUMMARY | 2025-06-10 11:27 | XMS_ITS | Encounter Summary ---
Author Organization [place] Address [address] [place] [address] 41117 Care Team Providers Care Atmospheric Physicist Name Role Phone Barry Kilpatrick MD Unavailable Michelle Henderson RN Unavailable [phone] Rio Jaquez MD Unavailable +[phone] Jemima Jaramillo MD Unavailable Unavai Kelley Bautista RN Unavailable +[phone] Sydnee Saleem MD Unavailable +[phone] Karlene Moya MD Unavailable +[phone] Wilbert Quintero OD Unavailable +[phone] Rod Gauthier DPM Unavailable +[phone] Jan Mahmood MD Unavailable +[phone] Brandt Quintana MD Unavailable Jan Mahmood MD Unavailable +[phone] Dom Eason MD Unavailable +[phone] Jaimie Vernon RN Unavailable Unavailable Marquise Hanley MD Unavailable +[phone] Vlad Ramey MD Unavailable +[phone] Joesph Crowe MD Unavailable Michelle Padilla RN Unavailable Unavaila ble Marquise Hanley MD Unavailable +[phone] Wagner Oliver MD Unavailable [phone] Joesph Crowe MD Unavailable Adonay Haq MD Unavailable +[phone] Ruth Riddle DPM, Podiatry /Foot and Ankle Surgery Unavailable Omar Carmona MD Primary Care Provider [phone] Jignesh Mathias MD Unavailable Omar Carmona MD Unavailable +[phone] Jason Alvares MD Unavailable Jignesh Mathias MD Unavailable Ayad Lopez PhD LP Unavailable +[phone] Gavi Nieto PA-C Unavailable +[phone] Encounter Details Date Type Department Care Team (Late st Contact Info) Description 01/03/2025 [facility] [address] [address] Omar Carmona MD [address] [place] [address] Hypokalemia (Primary Dx); CKD (chronic kidney [...] Answer Date Recorded PHQ-2 Score 3 12/04/2024 [facility] - Occupational Stress Questionnaire Answer [...] Sex Assigned at Female 09/12/2020 12:05 PM SIMPLEX PRINTER INSTALLER Legal Sex Female 3:26 AM SIMPLEX PRINTER INSTALLER Gender Identity Female 09/12/2020 12:05 PM SIMPLEX PRINTER INSTALLER Sexual Orientation Straight 12/19/2021 10 :44 [...] st Contact Info) Description 06/13/2025 6:00 PM SIMPLEX PRINTER INSTALLER Ancillary Procedure [address] 1st [place] [address] Omar Carmona MD [address] [place] [address] 06/14/2025 4:00 PM SIMPLEX PRINTER INSTALLER Office Visit [facility] Primary Care [address] [phone] Omar Carmona MD [address] [place] [address] 359655 06/15/2025 12:45 PM SIMPLEX PRINTER INSTALLER Therapy Visit [facility] [address] [place] [phone] Jason Alvares MD [address] [place] [address] 428955 [facility] [address] [place], [place] 613757 06/19/2025 10:30 AM SIMPLEX PRINTER INSTALLER Virtual Visit [facility] Primary Care [address] [phone] Omar Carmona MD [address] [place] [address] Gerson Santos [facility] 06/26/2025 11:00 AM SIMPLEX PRINTER INSTALLER Therapy Visit [facility] [address] [place] [phone] Jason Alvares MD [address] [place] [address] 471275 Chaya Castillo, OTR [facility] [address] [place], [place] 843517 07/09/2025 12:45 PM SIMPLEX PRINTER INSTALLER Therapy Visit [facility] [address] [place] [phone] Jason Alvares MD 420 [facility] 295 [place] [address] Chaya Castillo, OTR [facility] 150 [place] [address] 07/18/2025 3:00 PM SIMPLEX PRINTER INSTALLER Office Visit [facility] Heart [address] [phone] Adonay Chapman APRN [facility] 500 [place], [place] 757435 11/05/2025 12:30 PM CDT Lab [facility] Lab [address] 1st [place] [phone] 11/05/2025 1:45 PM CDT Office Visit [facility] Dermatology Clinic [address] 3rd [place] [phone] Gavi Nieto, PANavinC [facility] [address] [place] [address] 11/20/2025 10:30 AM CDT Virtual Visit [address] [address] Marquise Hanley MD [address] [place] [address] 648435 documented as of this encounter Goals Goal [...] BLOOD ORDERABLES Ashly nicole Result [facility] [address] [place] [address], [place] [address] documented in this encounter Visit [...] documented as of this encounter Care Teams Atmospheric Physicist Relationship Specialty Start Date End Date Omar Carmona MD [address] [place] [address]289 PCP - General Family Medicine 07/14/24 Barry Kilpatrick MD [address] [place] [address] [id number] [place], [place] 254895 Neurology 07/19/14 Michelle Henderson RN Nurse Coordinator Neurology 07/19/14 Rio Jaquez MD [address] [place] [address] 635805 Family Practice 10/15/14 Jemima Jaramillo MD [address] [place] [address] [facility] 11/20/14 Kelley Chin, TANIA [address] 345475 Nurse Coordinator Cardiology 11/04/15 Sydnee Saleem MD 420 [facility] 508 [place] [address] Cardiology 11/04/15 Karlene Moya MD 516 [place] [address] Ophthalmology 06/24/17 Wilbert Quintero OD 909 [place], [place] 935415 Optometry 06/24/17 Rod Gauthier DPM 9[address] [place], [place] 893345 Plastic Worker Primary Podiatric Medicine 06/21/18 Jan Mahmood MD [address] [address] MD Gastroenterology 11/05/20 Brandt Quintana MD [address] [place] [address] Resident 11/05/20 Jan Mahmood MD 516 [facility] 2A [place] [address] Assigned Gastroenterology Provider 12/01/20 Dom Eason MD 717 [facility] MICHAEL 353 [place] [address] Internal Medicine 12/02/20 Jaimie Vernon, RN Specialty Dependency Director Cardiology 10/28/21 Marquise Hanley MD [address] [place] [address] Endocrinology, Diabetes, and Metabolism 03/05/22 Vlad Ramey MD [address] [place] [address] 32850 Cardiovascular Disease 05/07/22 Joesph Crowe MD [address] [place] [address] 56958 MD Surgery 05/07/22 Michelle Padilla RN Specialty Dependency Director Cardiology 07/03/22 Marquise Hanley MD [address] [place] [address] 76379 Assigned Endocrinology Provider 08/15/22 Wagner Oliver MD [address] [place] [address] Critical Care 12/15/22 Joesph Crowe MD [address] [place] [address] 9[address] Surgery 03/17/23 Adonay Haq MD [address] [place] [address]39 Internal Medicine 06/14/23 Ruth Riddle DPM, Podiatry/Foot and Ankle Surgery [address] [place] [address] Assigned Musculoskeletal Provider 10/22/23 Jignesh Mathias MD [address] [place] [address] 491085 Gastroenterology 09/25/24 Omar Carmona MD [address] [place] [address] 822785 Assigned PCP 12/29/24 Jason Alvares MD [address] [place] [address] [phone] Assigned Neuroscience Provider 12/29/24 Jignesh Mathias MD [address] [place] [address] 016595 Assigned Surgical Provider 12/29/24 Ayad Lopez, PhD LP [address] [place] [address] [phone] Assigned Behavioral Health Provider 02/28/25 Gavi Nieto PANavinC [address] [place] [address] 296985 [facility] Office Supervisor Dermatology 03/19/25 documented as of this encounter
--- OUTSIDE RECORDS SUMMARY | 2025-06-10 11:27 | XMS_ITS | Encounter Summary ---
Author Organization [place] Address [address] [place] [address] Care Team Providers Care Custom Van Converter Name Role Phone Rio Jaquez MD Primary Care Provider + [phone] Barry Kilpatrick MD Unavailable Michelle Henderson RN Unavailable [phone] Rio Jaquez MD Unavailable +[phone] Jemima Jaramillo MD Unavailable Unavai Kelley Bautista RN Unavailable [phone] Sydnee Saleem MD Unavailable [phone] Karlene Moya MD Unavailable [phone] Wilbert Quintero OD Unavailable +[phone] Rod GauthierM Unavailable +[phone] Nallely Hogue RN Unavailable Unavailable Larisa Vargas RN Unavailable Unavailable Rio Jaquez MD Unavailable +[phone] Ruth Yarbrough MD Unavailable [phone] Francisco Lott MD Unavailable +[phone] Frida Grace MD Unavailable +[phone] Sydnee Saleem MD Unavailable [phone] [...] Unavailable +[phone] Thom Taveras MD Unavailable [phone] Joesph Crowe MD Unavailable +[phone] Joesph Crowe MD Unavailable +[phone] Adonay Haq MD Unavailable [phone] [facility] Unavailable +[phone] Jason Alvares MD Unavailable Ruth Riddle DPM, Podiatry /Foot and Ankle Surgery Unavailable Omar Carmona MD Primary Care Provider [phone] Jignesh Mathias MD Unavailable Adonay Haq MD Unavailable [phone] Omar bragg MD Unavailable [phone] Jason Alvares MD Unavailable Jignesh Mathias MD Unavailable Ayad Lopez PhD LP Unavailable [phone] Gavi Nieto-Keisha Unavailable [phone] Encounter Details Date Type Department Care Team (Late st Contact Info) Description 02/29/2020 [facility] Rheumatology Clinic [address] [address] Francisco Lott MD [address] [place] [address] Social History Tobacco Use Types Packs/Day Years Used Date Smoking Tobacco: Every Day Cigarettes 1 42.8 Started: 08/09/1982 Smokeless Tobacco: Never Alcohol Use Standard Drinks/Week Comments Yes 0 (1 standard drink = 0.6 oz pur e alcohol) occ PHQ-2 Answer Date Recorded PHQ-2 Score 2 02/22/2020 Comments No Sex and Gender Information Value Date Recorded Sex Assigned at Female 09/12/2020 12:05 PM CIRCULATION DIRECTOR Legal Sex Female 3:26 AM CIRCULATION DIRECTOR Gender Identity Female 09/12/2020 12:05 PM CIRCULATION DIRECTOR Sexual Orientation Straight 12/19/2021 10 :44 [...] st Contact Info) Description 06/13/2025 6:00 PM CIRCULATION DIRECTOR Ancillary Procedure [facility] CT Clinic [address] [phone] Omar Carmona MD [address] [place] [address] 274675 06/14/2025 4:00 PM CIRCULATION DIRECTOR Office Visit [facility] Care [address] [phone] Omar Carmona MD [address] [place] [address] 06/15/2025 12:45 PM CIRCULATION DIRECTOR Therapy Visit [facility] 150 [place] [address] Jason Alvares MD [address] [place] [address] 295 [place], [place] 934945 Chaya Castillo OTR [facility] 150 [place] [address] 06/19/2025 10:30 AM CIRCULATION DIRECTOR Virtual Visit [facility] Primary [address] 4th [place] [phone] Omar Carmona MD [address] [place] [address] 022015 Gerson Santos, MORENO 06/26/2025 11:00 AM CIRCULATION DIRECTOR Therapy Visit [facility] 150 [place] [phone] Jason Alvares MD [address] [place] [address] 558155 Chaya Castillo, OTR [address] [address] 07/09/2025 12:45 PM CIRCULATION DIRECTOR Therapy Visit [facility] 150 [place] [phone] Jason Alvares MD [address] [place] [address] 870395 Chaya Castillo, OTR [address] [address] 07/18/2025 3:00 PM CIRCULATION DIRECTOR Office Visit [facility] [address] [phone] Adonay Chapman APRN [address] 320325 11/05/2025 12:30 PM CDT Lab [facility] [address] [place] [phone] 11/05/2025 1:45 PM CDT Office Visit [facility] [address]rd [place] [phone] Gavi Nieto PA-C Dermatology [address] [place] [address] 11/20/2025 10:30 AM CDT Virtual Visit [address] [address] Marquise Hanley MD 909 [place] [address] documented as of this encounter Goals Goal [...] as of this encounter Care Teams Custom Van Converter Relationship Specialty Start Date End Date Rio Jaquez MD 9 [facility] 4 [place] [address] PCP - General Family Practice 12/02/10 07/13/24 Omar Carmona MD [address] [place] [address] PCP - General Family Medicine 07/14/24 Barry Kilpatrick MD [address] [place] [address] [id number] [place] [address] Neurology 07/19/14 Michelle Henderson I, RN Nurse Coordinator Neurology 07/19/14 Rio Jaquez MD [address] [place] [address] 488055 Family Practice 10/15/14 Jemima Jaramillo MD afterschool 11/20/14 Kelley Chin, TANIA [address] 738215 Nurse Coordinator Cardiology 11/04/15 Sydnee Saleem MD [address] [place] [address] 508 [place], [place] 786365 Cardiology 11/04/15 Karlene Moya MD [address] [place] [address] 055715 Ophthalmology 06/24/17 Wilbert Quintero, OD [address] [place] [address] 137925 Optometry 06/24/17 Rod Gauthier DPM [address] [place] [address] 643925 Tractor Driver Primary Podiatric Medicine 06/21/18 Nallely Hogue, RN Registered Nurse 02/20/19 11/23/22 Larisa Vargas, TANIA Specialty Experimental Electronics Developer Cardiology 04/18/19 03/06/22 Rio Jaquez MD [address] [place] [address] 783485 Assigned PCP 5/21/20 4/10/21 Ruth Yarbrough MD 420 [facility] 101 [place] [address] Assigned Endocrinology Provider 05/31/20 09/28/20 Francisco Lott MD [address] [place] [address] 88 [place], [place] 424865 Assigned Rheumatology Provider 05/31/20 12/13/21 Frida Grace MD [address] [place] [address] JASON ANDERSON [address] Assigned Pediatric Specialist Provider 05/31/20 09/08/20 Sydnee Saleem MD [address] [place] [address] 23948 Assigned Heart and Vascular Provider 05/31/20 10/22/20 Greg Ortega MD [address] [place] [address]20 Assigned Surgical Provider 06/23/20 12/06/21 Frida Grace MD [address] [place] [address] JASON ANDERSON [address]196 Assigned Surgical Provider 05/31/20 06/22/20 Jan Mahmood MD [address] [address] Gastroenterology 11/05/20 [place] [address] [place] [address] Resident 11/05/20 Jan Mahmood MD 516 [facility] 2A [place], [place] 774935 Assigned Gastroenterology Provider 12/01/20 Rio Jaquez MD 909 [facility] 4 [place], [place] 382105 Assigned PCP 11/17/20 09/30/24 Dom Eason MD 717 [facility] 353 [place] [address] Internal Medicine 12/02/20 Jayla Plaza, RN Specialty Experimental Electronics Developer Hepatology 01/09/21 02/13/24 Jayla Plaza, RN Specialty Experimental Electronics Developer Hepatology 01/10/21 01/10/21 Sydnee Saleem MD [address] [place] [address] [phone] Assigned Heart and Vascular Provider 02/02/21 07/24/22 Phan Coello MD Assigned Neuroscience Provider 02/21/21 11/22/21 Cristian Barragan MD 2945 [place] [address] Assigned Infectious Disease Provider 02/21/21 03/06/22 Dom Eason MD 717 [facility] 353 [place], [place] 637484 Assigned Nephrology Provider 04/20/21 01/02/22 Jaimie Vernon, RN Specialty Experimental Electronics Developer Cardiology 10/28/21 Ruth Riddle DPM, Podiatry/Foot and Ankle Surgery [address] RODRIGUEZ [address] [place] [address] 228[address] Assigned Musculoskeletal Provider 11/30/21 09/30/23 Luis Arrington MD [address] [place] [address] Assigned Neuroscience Provider 11/23/21 01/02/22 Jason Alvares MD [address] [place] [address] 11895 Assigned Neuroscience Provider 01/03/22 05/15/22 Marquise Hanley MD [address] [place] [address] Endocrinology, Diabetes, and Metabolism 03/05/22 Vlad Ramey MD [address] [place] [address] 83790 Cardiovascular Disease 05/07/22 Joesph Crowe MD [address] [place] [address] Surgery 05/07/22 Luis Arrington MD [address] [place] [address] Assigned Neuroscience Provider 05/16/22 05/14/23 Michelle Padilla RN Specialty Experimental Electronics Developer Cardiology 07/03/22 Vlad Ramey MD [address] [place] [address] [place] [address] Assigned Heart and Vascular Provider 07/25/22 05/28/23 Marquise Hanley MD [address] [place] [address] 78[address] Assigned Endocrinology Provider 08/15/22 Dom Eason MD 717 [facility] MICHAEL [address] [place] [address] Assigned Nephrology Provider 11/28/22 02/19/23 Wagner Oliver MD 6401 [facility] [place] [address] Critical Care 12/15/22 Laura Epperson NP [address] [place] [address] 1932 [place] [address] Assigned Nephrology Provider 02/20/23 08/30/24 Thom Taveras MD [address], R[address] [place] [address] Assigned Cancer Care Provider 02/06/23 08/20/23 Joesph Crowe MD [address] [place] [address]23 Surgery 03/17/23 Joesph Crowe MD [address] [place] [address] 07987 Assigned Surgical Provider 04/03/23 09/30/24 Adonay Haq MD [address] [place] [address] Internal Medicine 06/14/23OctoberDenilson MD [address] [facility] [address] [place] [address] Assigned Heart and Vascular Provider 05/29/23 11/28/24 Jason Alvares MD 420 [facility] 295 [place], [place] 839735 Assigned Neuroscience Provider 05/15/23 11/28/24 Ruth Riddle DPM, Podiatry/Foot and Ankle Surgery [address] [place] [place], [place] 595367 Assigned Musculoskeletal Provider 10/22/23 Jignesh Mathias MD [address] [place] [address] 778185 Gastroenterology 09/25/24 Adonay Haq MD [address] [place] [address] 10449 Assigned PCP 10/01/24 12/28/24 Omar Carmona MD [address] [place] [address] 64[address] Assigned PCP 12/29/24 Jason Alvares MD [address] [address] Assigned Neuroscience Provider 12/29/24 Jignesh Mathias MD 909 [place] [address] Assigned Surgical Provider 12/29/24 Ayad Lopez, PhD LP [address] [place] [address] Assigned Behavioral Health Provider 02/28/25 Gavi Nieto PA-C [address] [place] [address] 126265 Physician Rn Neurology Dermatology 03/19/25 documented as of this encounter
--- OUTSIDE RECORDS SUMMARY | 2025-06-10 11:27 | XMS_ITS | Encounter Summary ---
Author Organization [facility] Address [address] [place] [address] 8[address]80 Care Team Providers Care Ladies' Hat Trimmer Name Role Phone Rio Jaquez MD Primary Care Provider + [phone] Barry Kilpatrick MD Unavailable Michelle Henderson RN Unavailable [phone] Rio Jaquez MD Unavailable +[phone] Jemima Jaramillo MD Unavailable Unavai Kelley Bautista RN Unavailable +[phone] Sydnee Saleem MD Unavailable +[phone] Karlene Moya MD Unavailable +[phone] Wilbert Quintero OD Unavailable +[phone] Rod GauthierM Unavailable +[phone] Nallely Hogue RN Unavailable Unavailable Larisa Vargas RN Unavailable Unavailable Rio Jaquez MD Unavailable +[phone] Ruth Yarbrough MD Unavailable +[phone] Francisco Lott MD Unavailable +[phone] Frida Grace MD Unavailable +[phone] Sydnee Saleem MD Unavailable +[phone] [...] Unavailable +[phone] Thom Taveras MD Unavailable +[phone] Joesph Crowe MD Unavailable +[phone] Joesph Crowe MD Unavailable +[phone] Adonay Haq MD Unavailable [phone] [facility] Un[facility] +[phone] Jason Alvares MD Unavailable Ruth Riddle DPM, Podiatry /Foot and Ankle Surgery Unavailable Omar Carmona MD Primary Care Provider [phone] Jignesh Mathias MD Unavailable Adonay Haq MD Unavailable [phone] [facility] Unavailable +[phone] Jason Alvares MD Unavailable Jignesh Mathias MD Unavailable Ayad Lopez PhD Unavailable [phone] Gavi Nieto-C Unavailable [phone] Reason for Referral * Consultation (Routine) - Closed Specialty Diagnoses / Procedures Referred By Good zhu Referred To Contact Diagnoses 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 (2) List of current medications (3) This referral request (4) Any documents/labs given to you for this referral Encounter Details Date Type Department Care Team (Late Contact Info) Description 03/03/2020 MyC Medical Advice [facility] Rheumatology Clinic [address] [address] Francisco Lott MD [address] [place] [address] Parotid gland enlargement (Primary Dx); IgG4 [...] Sex Assigned at Female 09/12/2020 12:05 PM EARLY CHILDHOOD LEAD TEACHER Legal Sex Female 3:26 AM EARLY CHILDHOOD LEAD TEACHER Gender Identity Female 09/12/2020 12:05 PM EARLY CHILDHOOD LEAD TEACHER Sexual Orientation Straight 12/19/2021 10 :44 [...] Upcoming Encounters Date Type Department Care Team ([facility] Contact Info) Description 06/13/2025 6:00 PM EARLY CHILDHOOD LEAD TEACHER Ancillary Procedure [facility] Imaging Center [facility] Clinic [address] 1st [place] [address] Omar Carmona MD [address] [place] [address] 819975 06/14/2025 4:00 PM EARLY CHILDHOOD LEAD TEACHER Office Visit [facility] Primary Care [address] [phone] Omar Carmona MD [address] [place] [address] 867445 06/15/2025 12:45 PM EARLY CHILDHOOD LEAD TEACHER Therapy Visit [facility] [address] [place] [phone] Jason Alvares MD [address] [place] [address] 763965 Ch[facility] Castillo, [facility]TR [facility] [address] [place], [place] 139837 06/19/2025 10:30 AM EARLY CHILDHOOD LEAD TEACHER Virtual Visit [facility] Primary Care [address] [phone] Omar Carmona MD [address] [place] [address] [phone] Gerson Santos [facility] 06/26/2025 11:00 AM EARLY CHILDHOOD LEAD TEACHER [facility] [address] [place] [phone] Jason Alvares MD [address] [place] [address] 459345 Chaya Castillo, [facility]TR [facility] [address] [place] [address] 07/09/2025 12:45 PM EARLY CHILDHOOD LEAD TEACHER Therapy Visit [facility] Rehabilitation Services [facility] [address] [place] [phone] Jason Alvares MD [address] [facility] [address] [place] [address] Chaya Castillo, OTR [facility] [address] [place] [address] 07/18/2025 3:00 PM EARLY CHILDHOOD LEAD TEACHER Office Visit [facility] Heart [address] [phone] Adonay Chapman APRN [facility] [address] [place], [place] 838305 11/05/2025 12:30 PM CDT Lab [facility] Lab [address] 1st [place] [phone] 11/05/2025 1:45 PM CDT Office Visit [facility] Dermatology [address] 3rd [place] [phone] Gavi Nieto, PANavinC Dermatology [address] [place] [address] 11/20/2025 10:30 AM CDT Virtual Visit [address] [address] Marquise Hanley MD [address] [place] [address] 463285 Scheduled Referrals Name Type Priority Associated Diagnoses [...] documented as of this encounter Care Teams Ladies' Hat Trimmer Relationship Specialty Start Date End Date Rio Jaquez MD [address] [place] [address] 11745 PCP - General Family Practice 12/02/10 07/13/24 Omar Carmona MD [address] [place] [address] 21433 PCP - General Family Medicine 07/14/24 Barry Kilpatrick MD [address] [place] [address] [id number] [place] [address] Neurology 07/19/14 Michelle Henderson RN Nurse Coordinator Neurology 07/19/14 Rio Jaquez MD [address] [place] [address] 19455 Family Practice 10/15/14 Jemima Jaramillo MD laborer pie bakery 11/20/14 Kelley Chin RN [address] [phone] Nurse Coordinator Cardiology 11/04/15 Sydnee Slaeem MD [address] [facility] 508 [place], [place] 185385 Cardiology 11/04/15 Karlene Moya MD [address] [place], [place] 043585 Ophthalmology 06/24/17 Wilbert Quintero, OD [address] [place] [address] 130945 Optometry 06/24/17 Rod Gauthier DPM [address] [place] [address] 856385 Client Application Support Specialist Primary Podiatric Medicine 06/21/18 Nallely Hogue, RN Registered Nurse 02/20/19 11/23/22 Larisa Vargas, TANIA Specialty Glue Mixer Cardiology 04/18/19 03/06/22 Rio Jaquez MD [address] [place] [address] 4 [place], [place] 949135 Assigned PCP 12/28/19 11/16/20 Ruth Yarbrough MD [address] [facility] 101 [place], [place] 173055 Assigned Endocrinology Provider 05/31/20 09/28/20 Francisco Lott MD 515 [facility] 88 [place], [place] 449815 Assigned Rheumatology Provider 05/31/20 12/13/21 Frida Grace MD [address] [place] [address] JASON ANDERSON [address] Assigned Pediatric Specialist Provider 05/31/20 09/08/20 Sydnee Saleem MD [address] [facility] [address] [place] [address] Assigned Heart and Vascular Provider 05/31/20 10/22/20 Greg Ortega MD [address] [place] [address] 87780 Assigned Surgical Provider 06/23/20 12/06/21 Frida Grace MD [address] [facility] JASON ANDERSON [address] Assigned Surgical Provider 05/31/20 06/22/20 Jan Mahmood MD [address] [place] [address]247 Gastroenterology 11/05/20 Brandt Quintana MD [address] [place] [address] 52[address] Resident 11/05/20 Jan Mahmood MD [address] [place] [address] 949[address] Assigned Gastroenterology Provider 12/01/20 Rio Jaquez MD [address] [address] Assigned PCP 11/17/20 09/30/24 Dom Eason MD [address] [place] [address] 72081 Internal Medicine 12/02/20 Jayla Plaza, RN Specialty Glue Mixer Hepatology 01/09/21 02/13/24 Jayla Plaza, RN Specialty Glue Mixer Hepatology 01/10/21 01/10/21 Sydnee Saleem MD [address] [place] [address] [place] [address] 27057 Assigned Heart and Vascular Provider 02/02/21 07/24/22 Phan Coello MD Assigned Neuroscience Provider 02/21/21 11/22/21 [place] [address] [place] [address] Assigned Infectious Disease Provider 02/21/21 03/06/22 Dom Eason MD [address] [place] [address] 58320 Assigned Nephrology Provider 04/20/21 01/02/22 Jaimie Vernon, TANIA Specialty Glue Mixer Cardiology 10/28/21 Ruth Riddle, DPM, Podiatry/Foot and Ankle Surgery [address] [facility] 300 [place] [address] Assigned Musculoskeletal Provider 11/30/21 09/30/23 Luis Arrington MD [address] [place] [address] 17335 Assigned Neuroscience Provider 11/23/21 01/02/22 Jason Alvares MD [address] [place] [address] 16[address] Assigned Neuroscience Provider 01/03/22 05/15/22 Marquise Hanley MD [address] [place] [address] 48899 Endocrinology, Diabetes, and Metabolism 03/05/22 Vlad Ramey MD [address] [place] [address] 972385 Cardiovascular Disease 05/07/22 Joesph Crowe MD [address] [place] [address] 85238 Surgery 05/07/22 Luis Arrington MD [address] [place] [address] 64510 Assigned Neuroscience Provider 05/16/22 05/14/23 Michelle Padilla RN Specialty Glue Mixer Cardiology 07/03/22 Vlad Ramey MD [address] [place] [address] 97428 Assigned Heart and Vascular Provider 07/25/22 05/28/23 Marquise Hanley MD [address] [place] [address] 38118 Assigned Endocrinology Provider 08/15/22 Dom Eason MD [address] [place] [address] 58348 Assigned Nephrology Provider 11/28/22 02/19/23 Wagner Oliver MD [address] [place] [address] Critical Care 12/15/22 Laura Epperson NP 717 [facility] [address] [place] [address] Assigned Nephrology Provider 02/20/23 08/30/24 Thmo Taveras MD [address] [place], [place] 678774 Assigned Cancer Care Provider 02/06/23 08/20/23 Joesph Crowe MD [address] [place] [address] 275975 Surgery 03/17/23 Joesph Crowe MD [address] [place] [address] 787745 Assigned Surgical Provider 04/03/23 09/30/24 Adonay Haq MD [address] [place] [address] 188885 Internal Medicine 06/14/23OctoberDenilson MD [address] [facility] [address] [place] [address] Assigned Heart and Vascular Provider 05/29/23 11/28/24 Jason Alvares MD [address] [facility] 295 [place] [address] Assigned Neuroscience Provider 05/15/23 11/28/24 Ruth Riddle DPM, Podiatry/Foot and Ankle Surgery [address] [place] [address] Assigned Musculoskeletal Provider 10/22/23 Jignesh Mathias MD [address] [place] [address] 38545 Gastroenterology 09/25/24 Adonay Haq MD [address] [place] [address] 126565 Assigned PCP 10/01/24 12/28/24 Omar Carmona MD [address] [place] [address] 459025 Assigned PCP 12/29/24 Jason Alvares MD [address] [place] [address] 998845 Assigned Neuroscience Provider 12/29/24 Jignesh Mathias MD [address] [place] [address] 44269 Assigned Surgical Provider 12/29/24 Ayad Lopez, PhD LP [address] [place] [address] 750115 Assigned Behavioral Health Provider 02/28/25 Gavi Nieto PA-C [address] [place] [address] 15772 Physician Hide [facility] Dermatology 03/19/25 documented as of this encounter
--- OUTSIDE RECORDS SUMMARY | 2025-06-10 11:28 | XMS_ITS | Encounter Summary ---
Author Organization [facility] Address [address] [place] [address] 14618 Care Team Providers Care Registered Health Nurse Name Role Phone Rio Jaquez MD Primary Care Provider Barry Kilpatrick MD Unavailable Michelle Henderson I RN Unavailable [phone] Rio Jaquez MD Unavailable [phone] Jemima Jaramillo MD Unavailable Unavai Kelley Bautista RN Unavailable [phone] Sydnee Saleem MD Unavailable [phone] Karlene Moya MD Unavailable Wilbert Quintero OD Unavailable +[phone] Rod Gauthier DPM Unavailable Jan Mahmood MD Unavailable [phone] rBandt Quintana MD Unavailable Jan Mahmood MD Unavailable +[phone] Rio Jaquez MD Unavailable [phone] Dom Eason MD Unavailable Jayla Plaza [...] Unavailable +[phone] Dom Eason MD Unavailable +[phone] Wagner Oliver MD Unavailable [phone] Laura Epperson NP Unavailable +[phone] Thom Taveras MD Unavailable [phone] Joesph Crowe MD Unavailable +[phone] Joesph Crowe MD Unavailable +[phone] Adonay Haq MD Unavailable +[phone] Denilson Srinivasan MD Unavailable + [phone] Jason Alvares MD Unavailable Ruth Riddle DPM, Podiatry /Foot and Ankle Surgery Unavailable Omar Carmona MD Primary Care Provider [phone] Jignesh Mathias MD Unavailable Adonay Haq MD Unavailable +[phone]- Omar Carmona MD Unavailable [phone] Jason Alvares MD Unavailable Jignesh Mathias MD Unavailable Ayad Lopez PhD LP Unavailable Gavi Nieto PA-C Unavailable Encounter Details Date Type Department Care Team (Late st Contact Info) Description 01/27/2023 MyC Medical Advice [facility] Primary Care Clinic [address] 4th [place] [address] Rio Jaquez MD [address] [place] [address] 4 [place] [address] Social History Tobacco Use Types [...] any clubs o r organizations such as cheondoism groups, unions, fraternal or athletic groups, or [...] Answer Date Recorded PHQ-2 Score 1 01/27/2023 [facility] - Occupational Stress [...] Assigned at Female 09/12/2020 12:05 PM PHYSICAL TRAINER Legal Sex Female 3:26 AM PHYSICAL TRAINER Gender Identity Female 09/12/2020 12:05 PM PHYSICAL TRAINER Sexual Orientation Straight 12/19/2021 10 :44 [...] Contact Info) Description 06/13/2025 6:00 PM PHYSICAL TRAINER Ancillary Procedure [facility] Imaging Center CT Clinic [address]st [place] [phone] Omar Carmona MD [address] [place] [address] [phone] 06/14/2025 4:00 PM PHYSICAL TRAINER Office Visit [facility] [address]th [place] [phone] Omar Carmona MD [address] [place] [address] 846685 06/15/2025 12:45 PM PHYSICAL TRAINER Therapy Visit [facility] Rehabilitation Services [address] [address] Jason Alvares MD [address] [place] [address] 295 [place], [place] 083175 Chaya Castillo OTR [address] [place] [address] 06/19/2025 10:30 AM PHYSICAL TRAINER Virtual Visit [facility] [address] [place] [phone] Omar Carmona MD [address] [place] [address] 794635 Gerson Santos [facility] 06/26/2025 11:00 AM PHYSICAL TRAINER Therapy Visit [facility] 150 [place] [phone] Jason Alvares MD [address] [place] [address] Chaya Castillo OTR [facility] 150 [place] [address] 07/09/2025 12:45 PM PHYSICAL TRAINER Therapy Visit [facility] [address] [place] [phone] Jason Alvares MD [address] [place] [address] Chaya Castillo OTR [facility] 150 [place] [address] 07/18/2025 3:00 PM PHYSICAL TRAINER Office Visit [facility] Heart Clinic [address] [phone] Adonay Chapman APRN [address] 602145 11/05/2025 12:30 PM CDT Lab [facility] Lab [address] [address] 11/05/2025 1:45 PM CDT Office Visit [facility] Dermatology Clinic [address] [facility] 3rd [place] [phone] Gavi Nieto PA-C Dermatology [address] [place] [address] 11/20/2025 10:30 AM CDT Virtual Visit [address] [phone] Marquise Hanley MD [address] [place] [address] 86[address] documented as of this encounter Goals Goal [...] documented as of this encounter Care Teams Registered Health Nurse Relationship Specialty Start Date End Date Rio Jaquez MD [address] [place] [address] 36528 PCP - General Family Practice 12/02/10 07/13/24 Omar Carmona MD [address] [place] [address] 68441 PCP - General Family Medicine 07/14/24 Barry Kilpatrick MD [address] [place] [address] [id number] [place], [place] 432705 Neurology 07/19/14 Michelle Henderson I, RN Nurse Coordinator Neurology 07/19/14 Rio Jaquez MD [address] [place] [address] [address] 4 [place] [address] Family Practice 10/15/14 Jemima Jaramillo MD sugar refiner 11/20/14 Kelley Chin, TANIA [address] 261455 Nurse Coordinator Cardiology 11/04/15 Sydnee Saleem MD [address] [place] [address] [facility] [address] [place], [place] 687855 Cardiology 11/04/15 Karlene Moya MD [address] [place] [address] 436455 Ophthalmology 06/24/17 Wilbert Quintero, OD [address] [place] [address] Optometry 06/24/17 Rod Gauthier DPM [address] [place] [address] 639685 Futures Trader Primary Podiatric Medicine 06/21/18 Jan Mahmood MD [address] [place] [address] [address] [place], [place] 990745 Gastroenterology 11/05/20 Brandt Quintana MD 1414 [place] [address] Resident 11/05/20 Jan Mahmood MD [facility] [place] [address] Assigned Gastroenterology Provider 12/01/20 Rio Jaquez MD 909 [facility] 4 [place], [place] 284145 Assigned PCP 11/17/20 09/30/24 Dom Eason MD 717 [facility] 353 [place] [address] Internal Medicine 12/02/20 Jayla Plaza, RN Specialty Dermatology Teacher Hepatology 01/09/21 02/13/24 Jaimie Vernon, RN Specialty Dermatology Teacher Cardiology 10/28/21 Ruth Riddle DPM, Podiatry/Foot and Ankle Surgery [address] [address] Assigned Musculoskeletal Provider 11/30/21 09/30/23 Marquise Hanley MD [address] [place] [address] 768745 Endocrinology, Diabetes, and Metabolism 03/05/22 Vlad Ramey MD [address] [place] [address] 647515 Cardiovascular Disease 05/07/22 Joesph Crowe MD [address] [place] [address] 00035 Surgery 05/07/22 Luis Arrington MD [address] [place] [address] 93226 Assigned Neuroscience Provider 05/16/22 05/14/23 Michelle Padilla, TANIA Specialty Dermatology Teacher Cardiology 07/03/22 Vlad Ramey MD [address] [place] [address] 153565 Assigned Heart and Vascular Provider 07/25/22 05/28/23 Marquise Hanley MD [address] [place] [address] 687365 Assigned Endocrinology Provider 08/15/22 Dom Eason MD 717 [facility]EL 353 [place], [place] 051564 Assigned Nephrology Provider 11/28/22 02/19/23 Wagner Oliver MD [address] [place] [address] Critical Care 12/15/22 Laura Epperson NP 717 [facility] 1932 [place] [address] Assigned Nephrology Provider 02/20/23 08/30/24 Thom Taveras MD [address] [place], [place] 359034 Assigned Cancer Care Provider 02/06/23 08/20/23 Joesph Crowe MD [address] [place] [address] 78667 MD Surgery 03/17/23 Joesph Crowe MD [address] [place] [address] 54394 Assigned Surgical Provider 04/03/23 09/30/24 Adonay Haq MD [address] [place] [address] 29371 Internal Medicine 06/14/23OctoberDenilson MD 6405 [facility] CLEO Black [facility]00 [place] [address] Assigned Heart and Vascular Provider 05/29/23 11/28/24 Jason Alvares MD [address] [place] [address]792 Assigned Neuroscience Provider 05/15/23 11/28/24 Ruth Riddle DPM, Podiatry/Foot and Ankle Surgery [address] [facility] [address] [place] [address] Assigned Musculoskeletal Provider 10/22/23 Jignesh Mathias MD [address] [place] [address] 09190 Gastroenterology 09/25/24 Adonay Haq MD [address] [place] [address] 21658 Assigned PCP 10/01/24 12/28/24 Omar Carmona MD [address] [place] [address] 017865 Assigned PCP 12/29/24 Jason Alvares MD [address] [place] [address] Assigned Neuroscience Provider 12/29/24 Jignesh Mathias MD [address] [place] [address] Assigned Surgical Provider 12/29/24 Ayad Lopez, PhD LP [address] [place] [address] Assigned Behavioral Health Provider 02/28/25 Gavi Nieto, PA-C [address] [place] [address] Physician Records Management Assistant Dermatology 03/19/25 documented as of this encounter
--- OUTSIDE RECORDS SUMMARY | 2025-06-10 11:28 | XMS_ITS | Encounter Summary ---
Author Organization [place] Address [address] [place] [address] Care Team Providers Care Data Network Architect Name Role Phone Rio Jaquez MD Primary Care Provider + [phone] Barry Kilpatrick MD Unavailable Michelle Hendersno RN Unavailable [phone] Rio Jaquez MD Unavailable +[phone] Jemima Jaramillo MD Unavailable Unavai Kelley Bautista RN Unavailable +[phone] Sydnee Saleem MD Unavailable +[phone] Karlene Moya MD Unavailable [phone] Wilbert Quintero OD Unavailable +[phone] Rod GauthierM Unavailable +[phone] Nallely Hogue RN Unavailable Unavailable Larisa Vargas RN Unavailable Unavailable Rio Jaquez MD Unavailable +[phone] Ruth Yarbrough MD Unavailable +[phone] Francisco Lott MD Unavailable +[phone] Frida Grace MD Unavailable +[phone] Sydnee Saleem MD Unavailable +[phone] Greg Ortega MD Unavailable Frida Grace MD Unavailable +[phone] Jan Mahmood MD Unavailable Brandt Quintana MD Unavailable Jan Mahmood MD Unavailable Rio Jaquez MD Unavailable +[phone] Dom Eason MD Unavailable Jayla Plaza RN Unavailable +[phone] Jayla Plaaz RN Unavailable +[phone] Sydnee Saleem MD [...] Unavailable +[phone] Thom Taveras MD Unavailable +[phone] Joesph Crowe MD Unavailable +[phone] Joesph Crowe MD Unavailable +[phone] Adonay Haq MD Unavailable [phone] [facility] Unavailable +[phone] Jason Alvares MD Unavailable Ruth Riddle DPM, Podiatry /Foot and Ankle Surgery Unavailable Omar Carmona MD Primary Care Provider [phone] Jignesh Mathias MD Unavailable Adonay Haq MD Unavailable [phone] Omar Carmona MD Unavailable +[phone] Jason Alvares MD Unavailable Jignesh Mathias MD Unavailable Ayad Lopez PhD LP Unavailable +[phone] Gavi Nieto-Keisha Unavailable +[phone] Encounter Details Date Type Department Care Team (Late st Contact Info) Description 11/06/2019 [facility] [address] [place] [phone] Rio Jaquez MD [address] [place] [address] Social History Tobacco Use Types Packs/Day Years Used Date Smoking Tobacco: Every Day Cigarettes 1 42.8 Started: 08/09/1982 Smokeless Tobacco: Never Alcohol Use Standard Drinks/Week Comments Yes 0 (1 standard drink = 0.6 oz pur e alcohol) occ Comments No Sex and Gender Information Value Date Recorded Sex Assigned at Female 09/12/2020 12:05 PM CAUL FAT PULLER Legal Sex Female 3:26 AM CAUL FAT PULLER Gender Identity Female 09/12/2020 12:05 PM CAUL FAT PULLER Sexual Orientation Straight 12/19/2021 10 :44 AM CDT Occupation Industry Job Start Date Job End Date on disability for FMS Not on file Not on file Not on file documented as of this encounter Plan of Treatment Upcoming Encounters Date Type Department Care Team (Late st Contact Info) Description 06/13/2025 6:00 PM CAUL FAT PULLER Ancillary Procedure [facility] [address] [phone] Omar Carmona MD [address] [place] [address] [id number] 06/14/2025 4:00 PM CAUL FAT PULLER Office Visit [facility] [address] [phone] Omar Carmona MD [address] [place] [address] 965255 06/15/2025 12:45 PM CAUL FAT PULLER Therapy Visit [facility] [address] [phone] Jason Alvares MD 420 [facility] 295 [place], [place] 4[address] Chaya Castillo OTR [facility] 150 [place] [address] 06/19/2025 10:30 AM CAUL FAT PULLER Virtual Visit [facility] [address] [phone] Omar Carmona MD [address] [place] [address] 190105 Gerson Santos, MROENO 06/26/2025 11:00 AM CAUL FAT PULLER Therapy Visit [address] [phone] Jason Alvares MD [address] [place] [address] Chaya Castillo, OTR [address] [address] 07/09/2025 12:45 PM CAUL FAT PULLER Therapy Visit [address] [phone] Jason Alvares MD [address] [place] [address] Chaya Castillo, OTR [address] [address] 07/18/2025 3:00 PM CAUL FAT PULLER Office Visit [facility] [address] [phone] Adonay Chapman APRN [facility] [address] [place], [place] 549[address] 11/05/2025 12:30 PM CDT Lab [facility] [address] [phone] 11/05/2025 1:45 PM CDT Office Visit [facility] [address] [place] [phone] Gavi Nieto PA-C Dermatology [address] [place] [address] 11/20/2025 10:30 AM CDT Virtual Visit [address] [phone] Marquise Hanley MD [address] [place] [address] documented as of this encounter Goals Goal [...] Depression Total Score: 10 019 7:06 AM CAUL FAT PULLER documented as of this encounter Care Teams Data Network Architect Relationship Specialty Start Date End Date Rio Jaquez MD [address] [place] [address]05 PCP - General Family Practice 12/02/10 07/13/24 Omar Carmona MD [address] [place] [address] 94652 PCP - General Family Medicine 07/14/24 Barry Kilpatrick MD [address] [place] [address] [id number] [place] [address] Neurology 07/19/14 Michelle [place] I, RN Nurse Coordinator Neurology 07/19/14 Rio Jaquez MD [address] [place] [address] 632215 Family Practice 10/15/14 Jemima Jaramillo MD phototypesetting equipment monitor 11/20/14 Kelley Chin, TANIA [facility] 9[address] [place], [place] 369705 Nurse Coordinator Cardiology 11/04/15 Sydnee Saleem MD 420 [facility] 508 [place], [place] 0[address] Cardiology 11/04/15 Karlene Moya MD [address] [place] [address] 088795 Ophthalmology 06/24/17 Wilbert Quintero, PETEY [address] [place] [address] 729895 Optometry 06/24/17 Rod Gauthier DPM [address] [place] [address] 488825 Boat Garnisher Primary Podiatric Medicine 06/21/18 Nallely Hogue, RN Registered Nurse 02/20/19 11/23/22 Larisa Vargas, TANIA Specialty Telephoner Cardiology 04/18/19 03/06/22 Rio Jaquez MD [address] [place] [address] 657385 Assigned PCP 12/28/19 11/16/20 Ruth Yarbrough MD 420 [facility] [address] [place], [place] 699[address] Assigned Endocrinology Provider 05/31/20 09/28/20 Francisco Lott MD [address] [place] [address]2621 Assigned Rheumatology Provider 05/31/20 12/13/21 Frida Grace MD 3305 [facility] [place] [address] Assigned Pediatric Specialist Provider 05/31/20 09/08/20 Sydnee Saleem MD [address] [place] [address]93 Assigned Heart and Vascular Provider 05/31/20 10/22/20 Greg Ortega MD [address] [place] [address] 81942 Assigned Surgical Provider 06/23/20 12/06/21 [place] [address] [place] [address] [place] [address] Assigned Surgical Provider 05/31/20 06/22/20 Jan Mahmood MD [address] [place] [address] 7[address] Gastroenterology 11/05/20 Brandt Quintana MD [address] [place] [address] 66589 Resident 11/05/20 Jan Mahmood MD [address] [place] [address] 23297 Assigned Gastroenterology Provider 12/01/20 Rio Jaquez MD 909 [facility] 4 [place], [place] [address] Assigned PCP 11/17/20 09/30/24 Dom Eason MD [address] [place] [address] 353 [place] [address] Internal Medicine 12/02/20 Jayla Plaza, RN Specialty Telephoner Hepatology 01/09/21 02/13/24 Jayla Plaza, RN Specialty Telephoner Hepatology 01/10/21 01/10/21 Sydnee Saleem MD [address] [place] [address] Assigned Heart and Vascular Provider 02/02/21 07/24/22 Phan Coello MD Assigned Neuroscience Provider 02/21/21 11/22/21 Cristian Barragan MD 29[address] [place] [address] Assigned Infectious Disease Provider 02/21/21 03/06/22 Dom Eason MD [address] [place] [address] 353 [place] [address] Assigned Nephrology Provider 04/20/21 01/02/22 Jaimie [place], TANIA Specialty Telephoner Cardiology 10/28/21 Ruth Riddle DPM, Podiatry/Foot and Ankle Surgery [address] [place] [address] 26052 Assigned Musculoskeletal Provider 11/30/21 09/30/23 Luis Arrington MD [address] [place] [address] 76883 Assigned Neuroscience Provider 11/23/21 01/02/22 Jason Alvares MD [address] [place] [address] 16162 Assigned Neuroscience Provider 01/03/22 05/15/22 Marquise Hanley MD [address] [place] [address] 48[address] Endocrinology, Diabetes, and Metabolism 03/05/22 Vlad Ramey MD [address] [place] [address] 06426 Cardiovascular Disease 05/07/22 Joesph Crowe MD [address] [place] [address] 94727 Surgery 05/07/22 Luis Arrington MD [address] [place] [address] 67544 Assigned Neuroscience Provider 05/16/22 05/14/23 Michelle Padilla, TANIA Specialty Telephoner Cardiology 07/03/22 Vlad Ramey MD [address] [place] [address] 49257 Assigned Heart and Vascular Provider 07/25/22 05/28/23 Marquise Hanley MD [address] [place] [address] 95384 Assigned Endocrinology Provider 08/15/22 Dom Eason MD 717 [facility] MICHAEL [address] [place] [address] Assigned Nephrology Provider 11/28/22 02/19/23 Wagner Oliver MD [address] [place] [address] Critical Care 12/15/22 Laura Epperson NP 7 [facility] [address] [place] [address] Assigned Nephrology Provider 02/20/23 08/30/24 Thom Taveras MD [address] [place] [address] Assigned Cancer Care Provider 02/06/23 08/20/23 Joesph Crowe MD [address] [place] [address] 9[address]88 Surgery 03/17/23 Joesph Crowe MD [address] [place] [address] 93624 Assigned Surgical Provider 04/03/23 09/30/24 Adonay Haq MD [address] [place] [address] 29020 Internal Medicine 06/14/23OctoberDenilson MD [address] [place] [address] Assigned Heart and Vascular Provider 05/29/23 11/28/24 Jason Alvares MD 420 [facility] [address] [place] [address] Assigned Neuroscience Provider 05/15/23 11/28/24 Ruth Riddle, DPM, Podiatry/Foot and Ankle Surgery [address] [place], [place] 584637 Assigned Musculoskeletal Provider 10/22/23 Jignesh Mathias MD [address] [place] [address] 394875 Gastroenterology 09/25/24 Adonay Haq MD [address] [place] [address] 412345 Assigned PCP 10/01/24 12/28/24 Omar Carmona MD [address] [place] [address] 921285 Assigned PCP 12/29/24 Jason Alvares MD [address] [address] Assigned Neuroscience Provider 12/29/24 Jignesh Mathias MD [address] [place] [address] 47072 Assigned Surgical Provider 12/29/24 Ayad Lopez, PhD LP [address] [place] [address] 39458 Assigned Behavioral Health Provider 02/28/25 Gavi Nieto PA-C [address] [place] [address] Physician Computer Applications Developer Dermatology 03/19/25 documented as of this encounter
--- OUTSIDE RECORDS SUMMARY | 2025-06-10 11:28 | XMS_ITS | Clinical Summary ---
Author Organization [employer] Address [address] [place] [address] Care Team Providers Care Surgical Garment Fitter Name Role Phone Pcp, No Primary Care Provider Unavailabl e Allergies Active Allergy Reactions Criticality Noted Date Comments Atorvastatin Other - Describe In Comment Field Medium 09/12/2021 Elevated liver function myalgia fatigue Cephalexin Anaphylaxis,Hives,T hroat Swelling/Closing,Wh eezing High 11/29/2006 Codeine Hives 11/29/2006 Duloxetine *Unknown 08/10/2011 Liver cannot tolerate this medication Gabapentin 04/17/2010 Latex Rash 07/21/2016 Pertussis Vaccines *Unknown - Childhood Rxn 01/16/2010 Dbxsxxp-Slq-Omh Reductase Inhibitors Nausea Only High 02/05/2022 Sulfa [...] initiated on Klonopin 5 months ago by AREGAN, PRN. She was given a prescription for [...] She was hospitalized for one week at [facility] in 2009 and then in inpt [...] on file Legal Sex Female 6:26 AM RADIOLOGY SPECIALIST Gender Identity Not on file Sexual Orientation [...] hyperlipidemia ANTI HCV Routine 09/02/2009 7:46 AM RADIOLOGY SPECIALIST Elevated Liver Enzymes from Last 3 Months or Most Recently Relevant to Health Maintenance Results * (ABNORMAL) LIPID PANEL (11/14/2009 8:53 AM CDT) CHOLESTEROL,TOTAL 199 110 - 199 mg/dL [facility] TRIGLYCERIDES 265(H) 40 - 149 mg/dL [facility] HDL CHOLESTEROL 39(L) >40 mg/dL [facility] CHOL/HDL RATIO 5.10(H) <4.51 ABBOT T [facility] LDL CHOLESTEROL 107 <131 mg/dL [facility] PATIENT STATUS Fasting [facility] Blood specimen (specimen) BLOOD SPECIMEN / Unknown 11/14/2009 8:53 AM CDT 11/14/2009 8:30 AM CDT us Lesley Mccall MD CHEMISTRY Final Result Performing Organization Address [facility] Co de Phone Number [facility] INTERNAL ZIP [phone] [place] [address] * ANTI HCV (09/02/2009 7:46 AM RADIOLOGY SPECIALIST) ANTI HCV Non-reacti ve [facility] Blood specimen (specimen) BLOOD SPECIMEN / Unknown 09/02/2009 7:46 AM RADIOLOGY SPECIALIST 09/02/2009 7:36 AM RADIOLOGY SPECIALIST us Lesley Mccall MD SEND OUTS Final Result Performing Organization Address [facility] Co de Phone Number [facility] INTERNAL ZIP [phone] [place] [phone] from Last 3 Months or Most Recently Relevant to Health Maintenance Insurance MEDICARE PART B HB ONLY MEDICARE PB ONLY BLUE CROSS OF NON-MS-ITS Advance Directives * Full Code (Latest Code Status on File) Date Activated Date Inactivated Comments 01/22/2010 1:00 AM 01/22/2010 7:45 AM Care Teams Surgical Garment Fitter Relationship Specialty Start Date End Date Pcp, No . PCP - General 05/19/22
--- OUTSIDE RECORDS SUMMARY | 2025-06-10 11:28 | XMS_ITS | Encounter Summary ---
Author Organization [facility] Address [address] [place] [address] Care Team Providers Care Production Inspector Name Role Phone Rio Jaquez MD Primary Care Provider Barry Kilpatrick MD Unavailable Michelle Henderson I RN Unavailable [phone] Rio Jaquez MD Unavailable +[phone] Jemima Jaramillo MD Unavailable Unavai Kelley Bautista RN Unavailable [phone] Sydnee Saleem MD Unavailable [phone] Karlene Moya MD Unavailable Wilbert Quintero OD Unavailable +[phone] Rod Gauthier DPM Unavailable Jan Mahmood MD Unavailable [phone] Brandt Quintana MD Unavailable Jan Mahmood MD Unavailable +[phone] Rio Jaquez MD Unavailable [phone] Dom Eason MD Unavailable Jayla Plaza [...] Unavailable +[phone] Dom Eason MD Unavailable +[phone] Wagner Oliver MD Unavailable [phone] Laura Epperson NP Unavailable [phone] Thom Taveras MD Unavailable [phone] Joesph Crowe MD Unavailable +[phone] Joesph Crowe MD Unavailable +[phone] Adonay Haq MD Unavailable +[phone] Denilson Srinivasan MD Unavailable + [phone] Jason Alvares MD Unavailable Ruth Riddle DPM, Podiatry /Foot and Ankle Surgery Unavailable Omar Carmona MD Primary Care Provider [phone] Jignesh Mathias MD Unavailable Adonay Haq MD Unavailable +1- Omar Carmona MD Unavailable +[phone] Jason Alvares MD Unavailable Jignesh Mathias MD Unavailable Ayad Lopez PhD LP Unavailable +[phone] Gavi NietoC Unavailable [phone] Encounter Details Date Type Department Care Team (Late st Contact Info) Description 02/04/2023 MyC Medical Advice [facility] [address] [phone] Pancho Locke Social History Tobacco [...] Answer Date Recorded PHQ-2 Score 2 02/01/2023 [facility] [...] Sex Assigned at Female 09/12/2020 12:05 PM DEBURRING MACHINE OPERATOR Legal Sex Female 3:26 AM DEBURRING MACHINE OPERATOR Gender Identity Female 09/12/2020 12:05 PM DEBURRING MACHINE OPERATOR Sexual Orientation Straight 12/19/2021 10 [...] st Contact Info) Description 06/13/2025 6:00 PM DEBURRING MACHINE OPERATOR Ancillary Procedure [facility] [address] [phone] Omar Carmona MD [address] [place] [address] [phone] 06/14/2025 4:00 PM DEBURRING MACHINE OPERATOR Office Visit [address] [phone] Omar Carmona MD [address] [place] [address] 18892 06/15/2025 12:45 PM DEBURRING MACHINE OPERATOR Therapy Visit [facility] [address] [phone] Jason Alvares MD [address] [place] [address] 295 [place], [place] 8[address] Chaya Castillo OTR [facility] 150 [place] [address] 06/19/2025 10:30 AM DEBURRING MACHINE OPERATOR Virtual Visit [facility] [address] [place] [phone] Omar Carmona MD [address] [place] [address] 855295 Gerson Santos, FARZAD 06/26/2025 11:00 AM DEBURRING MACHINE OPERATOR Therapy Visit [facility] [address] [place] [phone] Jason Alvares MD [address] [place] [address] 727025 Chaya Castillo, OTR [address] [address] 07/09/2025 12:45 PM DEBURRING MACHINE OPERATOR Therapy Visit [address] [phone] Jason Alvares MD [address] [place] [address] 700355 Chaya Castillo OTMari [address] [address] 07/18/2025 3:00 PM DEBURRING MACHINE OPERATOR Office Visit [facility] [address] [phone] Adonay Chapman APRN [address] 533905 11/05/2025 12:30 PM CDT Lab [facility] [address] [place] [phone] 11/05/2025 1:45 PM CDT Office Visit [facility] [address] [place] [phone] Gavi Nieto PA-C Dermatology [address] [place] [address] 11450 11/20/2025 10:30 AM CDT Virtual Visit [address] [phone] Marquise Hanley MD 909 [place] [address] documented as of this encounter Goals Goal [...] as of this encounter Care Teams Production Inspector Relationship Specialty Start Date End Date Rio Jaquez MD 9 [facility] [address] [place] [address] PCP - General Family Practice 12/02/10 07/13/24 Omar Carmona MD [address] [place] [address] 36209 PCP - General Family Medicine 07/14/24 Barry Kilpatrick MD [address] [place] [address] [id number] [place] [address] Neurology 07/19/14 Michelle Henderson I, RN Nurse Coordinator Neurology 07/19/14 Rio Jaquez MD [address] [place] [address] 4 [place], [place] 427355 Family Practice 10/15/14 Jemima Jaramillo MD stockroom attendant 11/20/14 Kelley Chin, TANIA [address] [address] Nurse Coordinator Cardiology 11/04/15 Sydnee Saleem MD [address] [place] [address] 508 [place], [place] [phone] Cardiology 11/04/15 Karlene Moya MD [address] [place] [address] 660755 Ophthalmology 06/24/17 Wilbert Quintero, OD [address] [place] [address] 057205 Optometry 06/24/17 Rod Gauthier DPM [address] [place] [address] [phone] Die Designer Primary Podiatric Medicine 06/21/18 Jan Mahmood MD [address] [place] [address] [phone] Gastroenterology 11/05/20 Brandt Quintana MD [address] [place] [address] 7[address] Resident 11/05/20 Jan Mahmood MD 516 [facility] 2[address] [place] [address] Assigned Gastroenterology Provider 12/01/20 Rio Jaquez MD [address] [place] [address] 649755 Assigned PCP 11/17/20 09/30/24 Dom Eason MD [address] [place] [address] Internal Medicine 12/02/20 Jayla Plaza, RN Specialty Robotics Technologist Hepatology 01/09/21 02/13/24 Jaimie [place], RN Specialty Robotics Technologist Cardiology 10/28/21 Ruth Riddle DPM, Podiatry/Foot and Ankle Surgery [address] [address] Assigned Musculoskeletal Provider 11/30/21 09/30/23 Marquise Hanley MD [address] [place] [address] 70644 Endocrinology, Diabetes, and Metabolism 03/05/22 Vlad Ramey MD [address] [place] [address] [phone] Cardiovascular Disease 05/07/22 Joesph Crowe MD [address] [place] [address] 645515 Surgery 05/07/22 Luis Arrington MD [address] [place] [address] 80856 Assigned Neuroscience Provider 05/16/22 05/14/23 Michelle Padilla, RN Specialty Robotics Technologist Cardiology 07/03/22 Vlad Ramey MD [address] [place] [address] 28877 Assigned Heart and Vascular Provider 07/25/22 05/28/23 Marquise Hanley MD [address] [place] [address] 60582 Assigned Endocrinology Provider 08/15/22 Dom Eason MD [address] [place] [address] 353 [place] [address] Assigned Nephrology Provider 11/28/22 02/19/23 Wagner Oliver MD 6401 [place] [address] Critical Care 12/15/22 Laura Epperson NP [address] [place] [address] 1932 [place] [address] Assigned Nephrology Provider 02/20/23 08/30/24 Thom Taveras MD [facility] [address] [place] [address] Assigned Cancer Care Provider 02/06/23 08/20/23 Joesph Crowe MD [address] [place] [address] 88760 Surgery 03/17/23 Joesph Crowe MD [address] [place] [address] 81054 Assigned Surgical Provider 04/03/23 09/30/24 Adonay Haq MD [address] [place] [address] 06258 Internal Medicine 06/14/23OctoberDenilson MD 6405 [facility] Black [facility] [address] [place] [address] Assigned Heart and Vascular Provider 05/29/23 11/28/24 Jason Alvares MD [address] [place] [address] 35069 Assigned Neuroscience Provider 05/15/23 11/28/24 Ruth Riddle DPM, Podiatry/Foot and Ankle Surgery [address] [address] [facility] 300 [place], [place] 041277 Assigned Musculoskeletal Provider 10/22/23 Jignesh Mathias MD [address] [place] [address] 85193 Gastroenterology 09/25/24 Adonay Haq MD [address] [place] [address] 80413 Assigned PCP 10/01/24 12/28/24 Omar Carmona MD [address] [place] [address] [phone] Assigned PCP 12/29/24 Jason Alvares MD [address] [place] [address] 437365 Assigned Neuroscience Provider 12/29/24 Jignesh Mathias MD [address] [place] [address] 175415 Assigned Surgical Provider 12/29/24 Ayad Lopez, PhD LP [address] [place] [address] 014765 Assigned Behavioral Health Provider 02/28/25 Gavi Nieto PANavinC [address] [place] [address] 174045 Physician Laboratory Phlebotomist Dermatology 03/19/25 documented as of this encounter
--- OUTSIDE RECORDS SUMMARY | 2025-06-10 11:28 | XMS_ITS | Encounter Summary ---
Author Organization [place] Address [address] [place] [address] Care Team Providers Care Winch Truck Operator Name Role Phone Rio Jaquez MD Primary Care Provider Barry Kilpatrick MD Unavailable Michelle Henderson I RN Unavailable [phone] Rio Jaquez MD Unavailable +[phone] Jemima Jaramillo MD Unavailable Unavai Kelley Bautista RN Unavailable +[phone] Sydnee Saleem MD Unavailable +[phone] Karlene Moya MD Unavailable Wilbert Quintero OD Unavailable +[phone] Rod Gauthier DPM Unavailable Jan Mahmood MD Unavailable +[phone] Brandt Quintana MD Unavailable Jan Mahmood MD Unavailable +[phone] Rio Jaquez MD Unavailable +[phone] Dom Eason MD Unavailable Jayla Plaza RN [...] Unavailable +[phone] Dom Eason MD Unavailable +[phone] Wagner Oliver MD Unavailable +[phone] Laura Epperson NP Unavailable +[phone] Thom Taveras MD Unavailable +[phone] Joesph Crowe MD Unavailable +[phone] Joesph Crowe MD Unavailable +[phone] Adonay Haq MD Unavailable +[phone] Denilson Srinivasan MD Unavailable + [phone] Jason Alvares MD Unavailable Ruth Riddle DPM, Podiatry /Foot and Ankle Surgery Unavailable Omar Carmona MD Primary Care Provider +[phone] Jignesh Mathias MD Unavailable Adonay Haq MD Unavailable +1- Omar Carmona MD Unavailable +[phone] Jason Alvares MD Unavailable Jignesh Mathias MD Unavailable Ayad Lopez PhD LP Unavailable +[phone] Gavi NietoC Unavailable [phone] Encounter Details Date Type Department Care Team (Late st Contact Info) Description 01/27/2023 [facility] [place] Medical Advice [facility] Hepatology [facility] [address] [phone] Lizbeth Lopes Social History Tobacco [...] Answer Date Recorded PHQ-2 Score 1 01/27/2023 [facility] - [...] No 08/27/2021 Housing Stability Vital Sign Answer Meir e Recorded In the last 12 months, [...] Sex Assigned at Female 09/12/2020 12:05 PM DOCUMENTATION MANAGER Legal Sex Female 3:26 AM DOCUMENTATION MANAGER Gender Identity Female 09/12/2020 12:05 PM DOCUMENTATION MANAGER Sexual Orientation Straight 12/19/2021 10 :44 [...] st Contact Info) Description 06/13/2025 6:00 PM DOCUMENTATION MANAGER Ancillary Procedure [facility] Imaging Center CT Clinic [address] [phone] Omar Carmona MD [address] [place] [address] 492655 06/14/2025 4:00 PM DOCUMENTATION MANAGER Office Visit [facility] Care [address] [place] [phone] Omar Carmona MD [address] [place] [address] 06/15/2025 12:45 PM DOCUMENTATION MANAGER Therapy Visit [facility] Rehabilitation Services [facility] [address] [place] [phone] Jason Alvares MD [address] [place] [address] 295 [place], [place] 285685 Chaya Castillo OTR [facility] 150 [place] [address] 06/19/2025 10:30 AM DOCUMENTATION MANAGER Virtual Visit [facility] Primary Care [address] [place] [phone] Omar Carmona MD [address] [place] [address] 610975 Gerson Santos, [facility] 06/26/2025 11:00 AM DOCUMENTATION MANAGER Therapy Visit [address] [phone] Jason Alvares MD [address] [place] [address] 280345 Chaya Castillo, OTR [address] [address] 07/09/2025 12:45 PM DOCUMENTATION MANAGER Therapy Visit [address] [phone] Jason Alvares MD [address] [place] [address] 872605 Chaya Castillo, OTR [address] [address] 07/18/2025 3:00 PM DOCUMENTATION MANAGER Office Visit [facility] Heart Clinic [address] [phone] Adonay Chapman APRN [address] 893165 11/05/2025 12:30 PM CDT Lab [facility] Lab [address] [place] [phone] 11/05/2025 1:45 PM CDT Office Visit [facility] Dermatology Clinic [address] [place] [phone] Gavi Nieto PA-C Dermatology [address] [place] [address] 11/20/2025 10:30 AM CDT Virtual Visit [address] [phone] Marquise Hanley MD [address] [place] [address] documented as of this encounter Goals Goal [...] documented as of this encounter Care Teams Winch Truck Operator Relationship Specialty Start Date End Date Rio Jaquez MD 9 [facility] [place] 4 [place] [address] PCP - General Family Practice 12/02/10 07/13/24 Omar Carmona MD [address] [place] [address] PCP - General Family Medicine 07/14/24 Barry Kilpatrick MD [address] [place] [address] [id number] [place] [address] Neurology 07/19/14 Michelle Henderson I, RN Nurse Coordinator Neurology 07/19/14 Rio Jaquez MD [address] [place] [address] 4 [place], [place] 780455 Family Practice 10/15/14 Jemima Jaramillo MD rehabilitation teacher 11/20/14 Kelley Chin, TANIA [address] 265575 Nurse Coordinator Cardiology 11/04/15 Sydnee Saleem MD [address] [place] [address] 508 [place], [place] 147945 Cardiology 11/04/15 Karlene Moya MD [address] [place] [address] 729935 Ophthalmology 06/24/17 Wilbert Quintero, OD [address] [place] [address] 988995 Optometry 06/24/17 Rod Gauthier DPM [address] [place] [address] 072115 Supervisor Fish Bait Processing Primary Podiatric Medicine 06/21/18 Jan Mahmood MD [address] [place] [address] 2[address] [place], [place] 079845 Gastroenterology 11/05/20 Brandt Quintana MD [address] [place] [address] Resident 11/05/20 Jan Mahmood MD 516 [facility] 2A [place] [address] Assigned Gastroenterology Provider 12/01/20 Rio Jaquez MD [address] [place] [address] 548745 Assigned PCP 11/17/20 09/30/24 Dom Eason MD [address] [place] [address] 353 [place] [address] Internal Medicine 12/02/20 Jayla Plaza, RN Specialty Branch Operations Manager Hepatology 01/09/21 02/13/24 Jaimie Vernon, RN Specialty Branch Operations Manager Cardiology 10/28/21 Ruth Riddle DPM, Podiatry/Foot and Ankle Surgery [address] [address] Assigned Musculoskeletal Provider 11/30/21 09/30/23 Marquise Han[place] MD [address] [place] [address] Endocrinology, Diabetes, and Metabolism 03/05/22 Vlad Ramey MD [address] [place] [address] 796315 Cardiovascular Disease 05/07/22 Joesph Crowe MD [address] [place] [address] 824915 Surgery 05/07/22 Luis Arrington MD [address] [place] [address] Assigned Neuroscience Provider 05/16/22 05/14/23 Michelle Padilla, TANIA Specialty Branch Operations Manager Cardiology 07/03/22 Vlad Ramey MD [address] [place] [address] Assigned Heart and Vascular Provider 07/25/22 05/28/23 Marquise Han[place] MD [address] [place] [address] Assigned Endocrinology Provider 08/15/22 Dom Eason MD [address] [place] [address] Assigned Nephrology Provider 11/28/22 02/19/23 Wagner Oliver MD 6401 [place] [address] Critical Care 12/15/22 Laura Epperson NP [address] [place] [address] 1932 [place] [address] Assigned Nephrology Provider 02/20/23 08/30/24 Thom Taveras MD [facility] [address] [place] [address] Assigned Cancer Care Provider 02/06/23 08/20/23 Joesph Crowe MD [address] [place] [address] Surgery 03/17/23 Joesph Crowe MD [address] [place] [address]658 Assigned Surgical Provider 04/03/23 09/30/24 Adonay Haq MD [address] [place] [address] Internal Medicine 06/14/23OctoberDenilson MD 6405 [facility] CLEO Black [facility] [address] [place] [address] Assigned Heart and Vascular Provider 05/29/23 11/28/24 Jason Alvares MD [address] [place] [address] 9[address] Assigned Neuroscience Provider 05/15/23 11/28/24 Ruth Riddle DPM, Podiatry/Foot and Ankle Surgery [address] [facility] 300 [place], [place] 160417 Assigned Musculoskeletal Provider 10/22/23 Jignesh Mathias MD [address] [place] [address] Gastroenterology 09/25/24 Adonay Haq MD [address] [place] [address] Assigned PCP 10/01/24 12/28/24 Omar Carmona MD [address] [place] [address] 971245 Assigned PCP 12/29/24 Jason Alvares MD [address] [place] [address] 612755 Assigned Neuroscience Provider 12/29/24 Jignesh Mathias MD [address] [place] [address] 140035 Assigned Surgical Provider 12/29/24 Ayad Lopez, PhD LP [address] [place] [address] 403875 Assigned Behavioral Health Provider 02/28/25 Gavi Nieto PANavinC [address] [place] [address] 536975 Physician Diesel Truck Mechanic Dermatology 03/19/25 documented as of this encounter
--- OUTSIDE RECORDS SUMMARY | 2025-06-10 11:28 | XMS_ITS | Encounter Summary ---
Author Organization [place] Address [address] [place] [address] Care Team Providers Care Cosmetology Instructor Name Role Phone Rio Jaquez MD Primary Care Provider Barry Kilpatrick MD Unavailable Michelle Henderson I RN Unavailable [phone] Rio Jaquez MD Unavailable +[phone] Jemima Jaramillo MD Unavailable Unavai Kelley Bautista RN Unavailable [phone] Sydnee Saleem MD Unavailable +[phone] Karlene Moya MD Unavailable +[phone] Wilbert Quintero OD Unavailable +[phone] Rod Gauthier DPM Unavailable Jan Mahmood MD Unavailable [phone] Brandt Quintana MD Unavailable Jan Mahmood MD Unavailable +[phone] Rio Jaquez MD Unavailable [phone] Dom Eason MD Unavailable Jayla Plaza RN [...] Unavailable +[phone] Dom Eason MD Unavailable +[phone] Wagner Oliver MD Unavailable +[phone] Laura Epperson NP Unavailable +[phone] Thom Taveras MD Unavailable +[phone] Joesph Crowe MD Unavailable +[phone] Joesph Crowe MD Unavailable +[phone] Adonay Haq MD Unavailable +1-2 Denilson Srinivasan MD Unavailable + [phone] Jason Alvares MD Unavailable Ruth Riddle DPM, Podiatry /Foot and Ankle Surgery Unavailable Omar Carmona MD Primary Care Provider +[phone] Jignesh Mathias MD Unavailable Adonay Hqa MD Unavailable +1- Omar Carmona MD Unavailable +[phone] Jason Alvares MD Unavailable Jignesh Mathias MD Unavailable Ayad Lopez PhD LP Unavailable +[phone] Gavi NietoC Unavailable [phone] Encounter Details Date Type Department Care Team (Late st Contact Info) Description 12/29/2022 [facility] Medical Advice [facility] Nephrology Clinic [address] [phone] Veronica Herr Social History Tobacco [...] than three times a week 08/27/2021 Attends [employer] Not on file 08/27 Do you [...] Date Recorded PHQ-2 Score 2 10/21/2022 [facility] Occupat [...] Sex Assigned at Female 09/12/2020 12:05 PM TEST AND RESEARCH REACTOR OPERATOR Legal Sex Female 3:26 AM TEST AND RESEARCH REACTOR OPERATOR Gender Identity Female 09/12/2020 12:05 PM TEST AND RESEARCH REACTOR OPERATOR Sexual Orientation Straight 12/19/2021 10 :44 [...] st Contact Info) Description 06/13/2025 6:00 PM TEST AND RESEARCH REACTOR OPERATOR Ancillary Procedure [facility] Imaging Center CT Clinic [address] [place] [phone] Omar Carmona MD [address] [place] [address] 824485 06/14/2025 4:00 PM TEST AND RESEARCH REACTOR OPERATOR Office Visit [address] [place] [phone] Omar Carmona MD [address] [place] [address] 06/15/2025 12:45 PM TEST AND RESEARCH REACTOR OPERATOR Therapy Visit [facility] Rehabilitation Services [address] [phone] Jason Alavres MD [address] [place] [address] 295 [place], [place] 864445 Chaya Castillo OTR [facility] 150 [place] [address] 06/19/2025 10:30 AM TEST AND RESEARCH REACTOR OPERATOR Virtual Visit [facility] Primary Care [address] [place] [phone] Omar Carmona MD [address] [place] [address] 915745 Gerson Santos, [facility] 06/26/2025 11:00 AM TEST AND RESEARCH REACTOR OPERATOR Therapy Visit [facility] 150 [place] [phone] Jason Alvares MD [address] [place] [address] 222915 Chaya Castillo, OTR [address] [address] 07/09/2025 12:45 PM TEST AND RESEARCH REACTOR OPERATOR Therapy Visit [address] [phone] Jason Alvares MD [address] [place] [address] 274615 Chaya Castillo, OTR [address] [address] 07/18/2025 3:00 PM TEST AND RESEARCH REACTOR OPERATOR Office Visit [facility] Heart Clinic [address] [phone] Adonay Chapman APRN [facility] 500 [place], [place] 492265 11/05/2025 12:30 PM CDT Lab [facility] Lab [address] [phone] 11/05/2025 1:45 PM CDT Office Visit [facility] Dermatology Clinic [address] [place] [phone] Gavi Nieto PA-C Dermatology [address] [place] [address] 11/20/2025 10:30 AM CDT Virtual Visit [address] [phone] Marquise Han[place] MD 909 [place] [address] documented as of this encounter Goals Goal [...] documented as of this encounter Care Teams Cosmetology Instructor Relationship Specialty Start Date End Date Rio Jaquez MD [address] [facility] [address] 4 [place] [address] PCP - General Family Practice 12/02/10 07/13/24 Omar Carmona MD [address] [place] [address] PCP - General Family Medicine 07/14/24 Barry Kilpatrick MD 9 [facility] [id number] [place] [address] Neurology 07/19/14 Michelle Henderson I, RN Nurse Coordinator Neurology 07/19/14 Rio Jaquez MD [address] [place] [address] 4 [place], [place] 077115 Family Practice 10/15/14 Jemima Jaramillo MD vehicle maintenance technician 11/20/14 Kelley Chin, TANIA [address] 751695 Nurse Coordinator Cardiology 11/04/15 Sydnee Saleem MD [address] [place] [address] 508 [place], [place] 249495 Cardiology 11/04/15 Karlene Moya MD [address] [place] [address] 945135 Ophthalmology 06/24/17 Wilbert Quintero, OD [address] [place] [address] 616585 Optometry 06/24/17 Rod Gauthier DPM [address] [place] [address] 605205 Data Processing Control Clerk Primary Podiatric Medicine 06/21/18 Jan Mahmood MD [address] [place] [address] 2A [place], [place] 402835 Gastroenterology 11/05/20 Brandt Quintana MD [address] [place] [address] Resident 11/05/20 Jan Mahmood MD 516 [facility] 2A [place] [address] Assigned Gastroenterology Provider 12/01/20 Rio Jaquez MD [address] [place] [address] 035985 Assigned PCP 11/17/20 09/30/24 Dom Eason MD [address] [place] [address] 353 [place] [address] Internal Medicine 12/02/20 Jayla Plaza, RN Specialty Industrial Controller Hepatology 01/09/21 02/13/24 Jaimie Vernon, RN Specialty Industrial Controller Cardiology 10/28/21 Ruth Riddle DPM, Podiatry/Foot and Ankle Surgery [address] [address] Assigned Musculoskeletal Provider 11/30/21 09/30/23 Marquise [place] MD [address] [place] [address] Endocrinology, Diabetes, and Metabolism 03/05/22 Vlad Ramey MD [address] [place] [address] 393045 Cardiovascular Disease 05/07/22 Joesph Crowe MD [address] [place] [address] 360475 Surgery 05/07/22 Luis Arrington MD [address] [place] [address] Assigned Neuroscience Provider 05/16/22 05/14/23 Michelle Padilla, TANIA Specialty Industrial Controller Cardiology 07/03/22 Vlad Ramey MD [address] [place] [address] Assigned Heart and Vascular Provider 07/25/22 05/28/23 Marquise [place] MD [address] [place] [address] Assigned Endocrinology Provider 08/15/22 Dom Eason MD [address] [place] [address] Assigned Nephrology Provider 11/28/22 02/19/23 Wagner Oliver MD [address] [facility] [place] [address] Critical Care 12/15/22 Larua Epperson NP [address] [place] [address] 1932 [place] [address] Assigned Nephrology Provider 02/20/23 08/30/24 Thom Taveras MD [facility] [address] [place] [address] Assigned Cancer Care Provider 02/06/23 08/20/23 Joesph Crowe MD [address] [place] [address] Surgery 03/17/23 Joesph Crowe MD [address] [place] [address] Assigned Surgical Provider 04/03/23 09/30/24 Adonay Haq MD [address] [place] [address] Internal Medicine 06/14/23OctoberDenilson MD [address] [facility] CLEO Black [facility] [address] [place] [address] Assigned Heart and Vascular Provider 05/29/23 11/28/24 Jason Alvares MD [address] [place] [address] Assigned Neuroscience Provider 05/15/23 11/28/24 Ruth Riddle DPM, Podiatry/Foot and Ankle Surgery [address] [place], [place] 181637 Assigned Musculoskeletal Provider 10/22/23 Jignesh Mathias MD [address] [place] [address] Gastroenterology 09/25/24 Adonay Haq MD [address] [place] [address] 9[address] Assigned PCP 10/01/24 12/28/24 Omar Carmona MD [address] [place] [address] 160205 Assigned PCP 12/29/24 Jason Alvares MD [address] [place] [address] 795285 Assigned Neuroscience Provider 12/29/24 Jignesh Mathias MD [address] [place] [address] 358345 Assigned Surgical Provider 12/29/24 Ayad Lopez, PhD LP [address] [place] [address] 448275 Assigned Behavioral Health Provider 02/28/25 Gavi Nieto PANavinC [address] [place] [address] 870905 Physician Tensile Tester Dermatology 03/19/25 documented as of this encounter
--- OUTSIDE RECORDS SUMMARY | 2025-06-10 11:28 | XMS_ITS | Encounter Summary ---
Author Organization [facility] Address [address] [place] [address] 9[address]99 Care Team Providers Care Ssrs Report Developer Name Role Phone Barry Kilpatrick MD Unavailable Michelle Henderson RN Unavailable [phone] Rio Jaquez MD Unavailable +[phone] Jemima Jaramillo MD Unavailable Unavai Kelley Bautista RN Unavailable +[phone] Sydnee Saleem MD Unavailable +[phone] Karlene Moya MD Unavailable +[phone] Wilbert Quintero OD Unavailable +[phone] Rod Gauthier DPM Unavailable +[phone] Jan Mahmood MD Unavailable +[phone] Brandt Quintana MD Unavailable +[phone] Jan Mamhood MD Unavailable +[phone] Dom Eason MD Unavailable +[phone] Jaimie Vernon RN Unavailable Unavailable Marquise Hanley MD Unavailable +[phone] Vlad Ramey MD Unavailable +[phone] Joesph Crowe MD Unavailable +[phone] Michelle Padilla RN Unavailable Unavaila ble Marquise Hanley MD Unavailable +[phone] Wagner Oliver MD Unavailable +[phone] Joesph Crowe MD Unavailable +[phone] Adonay Haq MD Unavailable [phone] Ruth Riddle DPM, Podiatry /Foot and Ankle Surgery Unavailable Omar Carmona MD Primary Care Provider [phone] Jignesh Mathias MD Unavailable Omar Carmona MD Unavailable +[phone] Jason Alvares MD Unavailable Jingesh Mathias MD Unavailable Ayad Lopez PhD LP Unavailable +[phone] Gavi Nieto PA-C Unavailable +[phone] Encounter Details Date Type Department Care Team (Late st Contact Info) Description 02/16/2025 [facility] Medical Advice [facility] [address] [facility] [address] [place] [address] [place] [address] MICHAEL [address] [place] [address] Social History Tobacco Use Types [...] r organizations such as lutheran groups, unions, fraternal or athletic groups, or [...] Answer Date Recorded PHQ-2 Score 3 12/04/2024 [facility] [...] Sex Assigned at Female 09/12/2020 12:05 PM FIRE INVESTIGATION MANAGER Legal Sex Female 3:26 AM FIRE INVESTIGATION MANAGER Gender Identity Female 09/12/2020 12:05 PM FIRE INVESTIGATION MANAGER Sexual Orientation Straight 12/19/2021 10 :44 AM CDT Occupation Industry Job Start Date Job End Date on disability for FMS Not on file Not on file Not on file disabled Not on file Not on file Not on file documented as of this encounter Plan of Treatment Upcoming Encounters Date Type Department Care Team (Late st Contact Info) Description 06/13/2025 6:00 PM FIRE INVESTIGATION MANAGER Ancillary Procedure [facility] [address] [place] [phone] Omar Carmona MD [address] [place] [address] 06/14/2025 4:00 PM FIRE INVESTIGATION MANAGER Office Visit [facility] [address] [place] [phone] Omar Carmona MD [address] [place] [address] 06/15/2025 12:45 PM FIRE INVESTIGATION MANAGER Therapy Visit [facility] [address] [place] [address] Jason Alvares MD [address] [place] [address] 929665 Chaya Castillo, OTR [facility] [address] [place], [place] 979057 06/19/2025 10:30 AM FIRE INVESTIGATION MANAGER Virtual Visit [facility] [address] [place] [address] 4th [place] [address] Omar Carmona MD [address] [place] [address] Gerson Santos [facility] 06/26/2025 11:00 AM FIRE INVESTIGATION MANAGER [facility] [address] [place] [phone] Jason Alvares MD [address] [place] [address] 987395 Chaya Castillo, OTR [facility] [address] [place] [address] 07/09/2025 12:45 PM FIRE INVESTIGATION MANAGER Therapy Visit [facility] [address] [place] [phone] Jason Alvares MD [address] [place] [address] 386045 Chaya Castillo, OTR [facility] [place] [place] [address] [place] [address] 07/18/2025 3:00 PM FIRE INVESTIGATION MANAGER Office Visit [facility] [address] [phone] Adonay Chapman APRN BEVERAGE DISTILLER [address] [place] [address] 11/05/2025 12:30 PM CDT Lab [facility] [address] [place] [phone] 11/05/2025 1:45 PM CDT Office Visit [facility] Dermatology [facility] [address] [place] [phone] Gavi Nieto PA-C Dermatology [address] [place] [address] [phone] 11/20/2025 10:30 AM CDT Virtual Visit [address] [place] [address] Marquise Hanley MD [address] [place] [address]14 documented as of this encounter Goals Goal [...] documented as of this encounter Care Teams Ssrs Report Developer Relationship Specialty Start Date End Date Omar Carmona MD [address] [place] [address] 47036 PCP - General Family Medicine 07/14/24 Barry Kilpatrick MD [address] [place] [address] [id number] [place], [place] [phone] Neurology 07/19/14 Michelle Henderson I, RN Nurse Coordinator Neurology 07/19/14 Rio Jaquez MD [address] [place] [address] 620085 Family Practice 10/15/14 Jemima Jaramillo MD [address] [place] [address] 64114 vessel ordinary seaman 11/20/14 Kelley Chin, TANIA [address] 188665 Nurse Coordinator Cardiology 11/04/15 Sydnee Saleem MD [address] [place] [address] 508 [place], [place] 523375 Cardiology 11/04/15 Karlene Moya MD [address] [place] [address] 464255 Ophthalmology 06/24/17 Wilbert Quintero, OD [address] [place] [address] 079775 Optometry 06/24/17 Rod Gauthier DPM [address] [place] [address] 880255 Otr Owner Operator Truck Driver Primary Podiatric Medicine 06/21/18 Jan Mahmood MD [address] [place], [place] [address]B [address] [place], [place] 105[address] Gastroenterology 11/05/20 Brandt Quintana MD [address] [place] [address] Resident 11/05/20 Jan Mahmood MD [address] [address] Assigned Gastroenterology Provider 12/01/20 Dom Eason MD [address] [address] Internal Medicine 12/02/20 Jaimie Vernon, RN Specialty Road Service Locksmith Cardiology 10/28/21 Marquise Hanley MD [address] [place] [address] 95191 Endocrinology, Diabetes, and Metabolism 03/05/22 Vlad Ramey MD [address] [place] [address] 81396 Cardiovascular Disease 05/07/22 Joesph Crowe MD [address] [place] [address] 32080 Surgery 05/07/22 Michelle Padilla RN Specialty Road Service Locksmith Cardiology 07/03/22 Marquise Hanley MD [address] [place] [address] 80162 Assigned Endocrinology Provider 08/15/22 Wagner Oliver MD [address] [place] [address] Critical Care 12/15/22 Joesph Crowe MD [address] [place] [address] 66282 Surgery 03/17/23 Adonay Haq MD [address] [place] [address] Internal Medicine 06/14/23 Ruth Riddle DPM, Podiatry/Foot and Ankle Surgery [address] [address] Assigned Musculoskeletal Provider 10/22/23 Jignesh Mathias MD [address] [place] [address]199 Gastroenterology 09/25/24 Omar Carmona MD [address] [place] [address] 26673 Assigned PCP 12/29/24 Jason Alvares MD [address] [place] [address] 43389 Assigned Neuroscience Provider 12/29/24 Jignesh Mathias MD [address] [place] [address] 65367 Assigned Surgical Provider 12/29/24 Ayad Lopez, PhD LP [address] [place] [address] 54333 Assigned Behavioral Health Provider 02/28/25 Gavi Nieto PA-C [address] [place] [address] Physician Business Development Assistant Dermatology 03/19/25 documented as of this encounter
--- OUTSIDE RECORDS SUMMARY | 2025-06-10 11:28 | XMS_ITS | Encounter Summary ---
Author Organization [facility] Address [address] [place] [address] 7[address] Care Team Providers Care Director Information Security Name Role Phone Rio Jaquez MD Primary Care Provider [phone] Barry Kilpatrick MD Unavailable Michelle Henderson RN Unavailable [phone] Rio Jaquez MD Unavailable [phone] Jemima Jaramillo MD Unavailable Unavai Kelley Bautista RN Unavailable [phone] Sydnee Saleem MD Unavailable [phone] Karlene Moya MD Unavailable [phone] Wilbert Quintero OD Unavailable +[phone] Rod GauthierM Unavailable + [phone] Kerrie Verdin PA-C Unavailable [phone] Nallely Hogue RN Unavailable Unavailable Larisa Vargas RN Unavailable Unavailable Rio Jaquez MD Unavailable +[phone] Ruth Yarbrough MD Unavailable +[phone] Francisco Lott MD Unavailable +[phone] Frida Grace MD Unavailable +[phone] Sydnee Saleem MD Unavailable +[phone] Greg Ortega MD Unavailable +[phone] Frida Grace MD Unavailable +[phone] Jan [...] Unavailable +[phone] Dom Eason MD Unavailable +[phone] Wagner Oliver MD Unavailable Laura Epperson NP Unavailable +[phone] Thom Taveras MD Unavailable +[phone] Joesph Crowe MD Unavailable +[phone] Joesph Crowe MD Unavailable +[phone] Adonay Haq MD Unavailable +[phone] Denilson Srinivasan MD Unavailable +[phone] Jason Alvares MD Unavailable Ruth Riddle DPM, Podiatry /Foot and Ankle Surgery Unavailable Omar Carmona MD Primary Care Provider [phone] Jignesh Mathias MD Unavailable Adonay Haq MD Unavailable [phone] Omar Carmona MD Unavailable [phone] Jason Alvares MD Unavailable Jignesh Mathias MD Unavailable Ayad Lopez PhD LP Unavailable +[phone] Gavi Nieto PA-C Unavailable +[phone] Encounter Details Date Type Department Care Team (Late st Contact Info) Description 04/04/2019 [facility] Medical Advice [facility] Surgical Weight Management [address] [facility] [address] 4th [place] [address] Ruth Yarbrough MD [address] [place] [address] Social History Tobacco Use Types Packs/Day Years Used Date Smoking Tobacco: Every Day Cigarettes 1 42.8 Started: 08/09/1982 Smokeless Tobacco: Never Alcohol Use Standard Drinks/Week Comments Yes 0 (1 standard drink = 0.6 oz pur e alcohol) occ Comments No Sex and Gender Information Value Date Recorded Sex Assigned at Female 09/12/2020 12:05 PM HEALTHCARE FACILITY ADMINISTRATOR Legal Sex Female 3:26 AM HEALTHCARE FACILITY ADMINISTRATOR Gender Identity Female 09/12/2020 12:05 PM HEALTHCARE FACILITY ADMINISTRATOR Sexual Orientation Straight 12/19/2021 10 :44 AM CDT Occupation Industry Job Start Date Job End Date on disability for FMS Not on file Not on file Not on file documented as of this encounter Plan of Treatment Upcoming Encounters Date Type Department Care Team (Late st Contact Info) Description 06/13/2025 6:00 PM HEALTHCARE FACILITY ADMINISTRATOR Ancillary Procedure [facility] CT [facility] [address] [phone] Omar Carmona MD [address] [place] [address] 279325 06/14/2025 4:00 PM HEALTHCARE FACILITY ADMINISTRATOR Office Visit [facility] [address] [phone] Omar Carmona MD [address] [place] [address] [phone] 06/15/2025 12:45 PM HEALTHCARE FACILITY ADMINISTRATOR Therapy Visit [facility] [address] [phone] Jason Alvares MD [address] [place] [address] [phone] Chaya Castillo, WESR [address] 890917 06/19/2025 10:30 AM HEALTHCARE FACILITY ADMINISTRATOR Virtual Visit [facility] Primary Care [address] [phone] Omar Carmona MD [address] [place] [address] [phone] Cecelia Santoschinyere MORENO 06/26/2025 11:00 AM HEALTHCARE FACILITY ADMINISTRATOR Therapy Visit [facility] [address] [place] [phone] Jason Alvares MD [address] [place] [address] 685615 Chaya Castillo, OTR FV [address] [address] 07/09/2025 12:45 PM HEALTHCARE FACILITY ADMINISTRATOR Therapy Visit [address] [phone] Jason Alvares MD [address] [place] [address] Chaya Castillo, OTR FV [address] [address] 07/18/2025 3:00 PM HEALTHCARE FACILITY ADMINISTRATOR Office Visit [facility] [address] [phone] Adonay Chapman APRN [facility] 500 [place], [place] 425445 11/05/2025 12:30 PM CDT Lab [facility] Lab [address] [place] [phone] 11/05/2025 1:45 PM CDT Office Visit [facility] Dermat[facility] [address]rd [place] [phone] Gavi Nieto PA-C Dermatology [address] [place] [address] [phone] 11/20/2025 10:30 AM CDT Virtual Visit [address] [address] Marquise Hanley MD 9 [place] [address] documented as of this encounter Goals Goal [...] Depression Total Score: 10 019 7:06 AM HEALTHCARE FACILITY ADMINISTRATOR documented as of this encounter Care Teams Director Information Security Relationship Specialty Start Date End Date Rio Jaquez MD [address] [place] [address] 4 [place] [address] PCP - General Family Practice 12/02/10 07/13/24 Omar Carmona MD [address] [place] [address] 57016 PCP - General Family Medicine 07/14/24 Barry Kilpatrick MD [address] [place] [address] [id number] [place] [address] Neurology 07/19/14 Michelle Henderson I, RN Nurse Coordinator Neurology 07/19/14 Rio Jaquez MD [address] [place] [address] 089235 Family Practice 10/15/14 Jemima Jaramillo MD machine cloth trimmer 11/20/14 Kelley Chin, TANIA [address] 224265 Nurse Coordinator Cardiology 11/04/15 Sydnee Saleem MD [address] [place] [address] 508 [place], [place] [phone] Cardiology 11/04/15 Karlene Moya MD [address] [place] [address] 684075 Ophthalmology 06/24/17 Wilbert Quintero, OD [address] [place] [address] 708255 Optometry 06/24/17 Rod Gauthier DPM [address] [place] [address] 645035 Bobbin Cleaning Machine Operator Primary Podiatric Medicine 06/21/18 Kerrie Verdin PA-C [address] [place] [address] 21658 Physician Machine Cloth Trimmer Physician Machine Cloth Trimmer 06/21/1808/07 Nallely Hogue, RN Registered Nurse 02/20/19 11/23/22 Larisa Vargas, TANIA Specialty Match Up Person Cardiology 04/18/19 03/06/22 Rio Jaquez MD [address] [place] [address] 148555 Assigned PCP 12/28/19 11/16/20 Ruth Yarbrough MD [address] [place] [address] 101 [place] [address] Assigned Endocrinology Provider 05/31/20 09/28/20 Francisco Lott MD [address] [place] [address] 35534 Assigned Rheumatology Provider 05/31/20 12/13/21 Frida Grace MD [address] [place] [address] [address] [place] [address] Assigned Pediatric Specialist Provider 05/31/20 09/08/20 Sydnee Saleem MD [address] [place] [address]885 Assigned Heart and Vascular Provider 05/31/20 10/22/20 Greg Ortega MD [address] [place] [address] 38151 Assigned Surgical Provider 06/23/20 12/06/21 Frida Grace MD [address] [place] [address] [address] [place] [address] Assigned Surgical Provider 05/31/20 06/22/20 Jan Mahmood MD [address] [address] Gastroenterology 11/05/20 Brandt Quintana MD [address] [place] [address] Resident 11/05/20 aJn Mahmood MD 516 [facility] [address] [address] [place] [address] Assigned Gastroenterology Provider 12/01/20 Rio Jaquez MD [address] [facility] 4 [place], [place] 555015 Assigned PCP 11/17/20 09/30/24 Dom Eason MD [address] [place] [address] 353 [place] [address] Internal Medicine 12/02/20 Jayla Plaza, RN Specialty Match Up Person Hepatology 01/09/21 02/13/24 Jayla Plaza, RN Specialty Match Up Person Hepatology 01/10/21 01/10/21 Sydnee Saleem MD [address] [place] [address] [phone] Assigned Heart and Vascular Provider 02/02/21 07/24/22 Phan Coello MD Assigned Neuroscience Provider 02/21/21 11/22/21 Cristian Barragan MD [address] [place] [address] Assigned Infectious Disease Provider 02/21/21 03/06/22 Dom Eason MD [address] [place] [address] 353 [place] [address] Assigned Nephrology Provider 04/20/21 01/02/22 Jaimie Vernon, RN Specialty Match Up Person Cardiology 10/28/21 Ruth Riddle DPM, Podiatry/Foot and Ankle Surgery [address] [place] [address] Assigned Musculoskeletal Provider 11/30/21 09/30/23 Luis Arrington MD [address] [place] [address]366 Assigned Neuroscience Provider 11/23/21 01/02/22 Jason Alvares MD [address] [place] [address] Assigned Neuroscience Provider 01/03/22 05/15/22 Marquise Hanley MD [address] [place] [address] 35977 Endocrinology, Diabetes, and Metabolism 03/05/22 Vlad Ramey MD [address] [place] [address] 46627 Cardiovascular Disease 05/07/22 Joesph Crowe MD [address] [place] [address] 27806 Surgery 05/07/22 Luis Arrington MD [address] [place] [address] 34519 Assigned Neuroscience Provider 05/16/22 05/14/23 Michelle Padilla RN Specialty Match Up Person Cardiology 07/03/22 Vlad Ramey MD 909 [place] [address] Assigned Heart and Vascular Provider 07/25/22 05/28/23 Marquise Hanley MD 909 [place] [address] Assigned Endocrinology Provider 08/15/22 Dom Eason MD 717 [facility] [address] [place] [address] Assigned Nephrology Provider 11/28/22 02/19/23 Wagner Oliver MD 64[address] [place] [address] Critical Care 12/15/22 Laura Epperson NP 7 [facility] [address] [place] [address] Assigned Nephrology Provider 02/20/23 08/30/24 Thom Taveras MD [address] [place] [address] Assigned Cancer Care Provider 02/06/23 08/20/23 Joesph Crowe MD [address] [place] [address]324 Surgery 03/17/23 Joesph Crowe MD [address] [place] [address] 21515 Assigned Surgical Provider 04/03/23 09/30/24 Adonay Haq MD [address] [place] [address]805 Internal Medicine 06/14/23OctoberDenilson MD [address] [facility] [address] [place] [address] Assigned Heart and Vascular Provider 05/29/23 11/28/24 Jason Alvares MD [address] 534225 Assigned Neuroscience Provider 05/15/23 11/28/24 Ruth Riddle, DPM, Podiatry/Foot and Ankle Surgery [address] [place] [address] Assigned Musculoskeletal Provider 10/22/23 Jignesh Mathias MD [address] [place] [address] 403805 Gastroenterology 09/25/24 Adonay Haq MD [address] [place] [address] 79100 Assigned PCP 10/01/24 12/28/24 Omar Carmona MD [address] [place] [address] 42121 Assigned PCP 12/29/24 Jason Alvares MD [address] 187885 Assigned Neuroscience Provider 12/29/24 Jignesh Mathias MD [address] [place] [address] 907395 Assigned Surgical Provider 12/29/24 Ayad Lopez, PhD LP [address] [place] [address] [phone] Assigned Behavioral Health Provider 02/28/25 Gavi Nieto PA-C [address] [place] [address] [phone] Physician Machine Cloth Trimmer Dermatology 03/19/25 documented as of this encounter
--- OUTSIDE RECORDS SUMMARY | 2025-06-10 11:28 | XMS_ITS | Encounter Summary ---
Author Organization [place] Address [address] [place] [address] Care Team Providers Care Try On Baster Name Role Phone Rio Jaquez MD Primary Care Provider Barry Kilpatrick MD Unavailable Michelle Henderson I RN Unavailable [phone] Rio Jaquez MD Unavailable +[phone] Jemima Jaramillo MD Unavailable Unavai Kelley Bautista RN Unavailable [phone] Sydnee Saleem MD Unavailable +[phone] Karlene Moya MD Unavailable +[phone] Wilbert Quintero OD Unavailable +[phone] Rod Gauthier DPM Unavailable +[phone] Jan Mahmood MD Unavailable +[phone] Brandt Quintana MD Unavailable +[phone] Jan Mahmood MD Unavailable +[phone] Rio Jaquez MD Unavailable +[phone] Dom Eason MD Unavailable Jayla Plaza RN [...] Unavailable +[phone] Dom Eason MD Unavailable +[phone] Wagner Oliver MD Unavailable +[phone] Laura Epperson NP Unavailable +[phone] Thom Taveras MD Unavailable +[phone] Joesph Crowe MD Unavailable +[phone] Joesph Crowe MD Unavailable +[phone] Adonay Haq MD Unavailable +1- Denilson Srinivasan MD Unavailable + [phone] Jason Alvares MD Unavailable Ruth Riddle DPM, Podiatry /Foot and Ankle Surgery Unavailable Omar Carmona MD Primary Care Provider [phone] Jignesh Mathias MD Unavailable Adonay Haq MD Unavailable +1- Omar Carmona MD Unavailable +[phone] Jason Alvares MD Unavailable Jignesh Mathias MD Unavailable Ayad Lopez PhD LP Unavailable Gavi Nieto PA-C Unavailable Encounter Details Date Type Department Care Team (Late st Contact Info) Description 01/25/2023 MyC Medical Advice [facility] [address] 4th [place] [address] Rio Jaquez MD [address] [place] [address] 4 [place] [address] Social History Tobacco Use Types [...] Answer Date Recorded PHQ-2 Score 1 01/27/2023 [facility] - Occupational Stress [...] Sex Assigned at Female 09/12/2020 12:05 PM TRANSPORT TECH Legal Sex Female 3:26 AM TRANSPORT TECH Gender Identity Female 09/12/2020 12:05 PM TRANSPORT TECH Sexual Orientation Straight 12/19/2021 10 :44 [...] st Contact Info) Description 06/13/2025 6:00 PM TRANSPORT TECH Ancillary Procedure [facility] Clinic [address] 1st [place] [phone] Omra Carmona MD [address] [place] [address] 102415 06/14/2025 4:00 PM TRANSPORT TECH Office Visit [facility] [address]th [place] [phone] Omar Carmona MD [address] [place] [address] 232455 06/15/2025 12:45 PM TRANSPORT TECH Therapy Visit [facility] Rehabilitation Services [address] [address] Jason Alvares MD [address] [place] [address] 295 [place], [place] 490375 Chaya Castillo OTR [address] [place] [address] 06/19/2025 10:30 AM TRANSPORT TECH Virtual Visit [facility] [address] [place] [phone] Omar Carmona MD [address] [place] [address] 8[address] [facility] 06/26/2025 11:00 AM TRANSPORT TECH Therapy Visit [facility] 150 [place] [phone] Jason Alvares MD [address] [place] [address] Chaya Castillo OTR [facility] 150 [place] [address] 07/09/2025 12:45 PM TRANSPORT TECH Therapy Visit [facility] 150 [place] [phone] Jason Alvares MD [address] [place] [address] Chaya Castillo OTR [facility] 150 [place] [address] 07/18/2025 3:00 PM TRANSPORT TECH Office Visit [facility] Heart Clinic [address] [phone] Adonay Chapman APRN [address] 052545 11/05/2025 12:30 PM CDT Lab [facility] Lab [address] [address] 11/05/2025 1:45 PM CDT Office Visit [facility] [place] [address] [facility] 3rd [place] [phone] Gavi Nieto PA-C Dermatology [address] [place] [address] 11/20/2025 10:30 AM CDT Virtual Visit [address] [phone] Marquise Hanley MD [address] [place] [address] documented as of this encounter Goals Goal [...] documented as of this encounter Care Teams Try On Baster Relationship Specialty Start Date End Date Rio Jaquez MD [address] [place] [address] PCP - General Family Practice 12/02/10 07/13/24 Omar Carmona MD [address] [place] [address] 28816 PCP - General Family Medicine 07/14/24 Barry Kilpatrick MD [address] [place] [address] [id number] [place], [place] [phone] Neurology 07/19/14 Michelle Henderson I, RN Nurse Coordinator Neurology 07/19/14 Rio Jaquez MD [address] [place] [address] [address] 4 [place] [address] Family Practice 10/15/14 Jemima Jaramillo MD research program internship 11/20/14 Kelley Chin, TANIA [address] 648125 Nurse Coordinator Cardiology 11/04/15 Sydnee Saleem MD [address] [place] [address] [facility] [address] [place], [place] 131145 Cardiology 11/04/15 Karlene Moya MD [address] [place] [address] 976385 Ophthalmology 06/24/17 Wilbert Quintero, OD [address] [place] [address] Optometry 06/24/17 Rod Gauthire DPM [address] [place] [address] 448105 Manager French Primary Podiatric Medicine 06/21/18 Jan Mahmood MD [address] [place] [address] [address] [place], [place] 967895 Gastroenterology 11/05/20 Brandt Quintana MD 1414 [place] [address] Resident 11/05/20 Jan Mahmood MD [facility]A [place] [address] Assigned Gastroenterology Provider 12/01/20 Rio Jaquez MD 909 [facility] 4 [place], [place] 890245 Assigned PCP 11/17/20 09/30/24 Dom Eason MD 717 [facility] 353 [place] [address] Internal Medicine 12/02/20 Jayla Plaza, RN Specialty Crib Tender Hepatology 01/09/21 02/13/24 Jaimie Vernon, RN Specialty Crib Tender Cardiology 10/28/21 Ruth Riddle DPM, Podiatry/Foot and Ankle Surgery [address] [address] Assigned Musculoskeletal Provider 11/30/21 09/30/23 Marquise Hanley MD [address] [place] [address] 843705 Endocrinology, Diabetes, and Metabolism 03/05/22 Vlad Ramey MD [address] [place] [address] 253495 Cardiovascular Disease 05/07/22 Joesph Crowe MD [address] [place] [address] 12542 Surgery 05/07/22 Luis Arrington MD [address] [place] [address] 62574 Assigned Neuroscience Provider 05/16/22 05/14/23 Michelle Padilla, TANIA Specialty Crib Tender Cardiology 07/03/22 Vlad Ramey MD [address] [place] [address] 598805 Assigned Heart and Vascular Provider 07/25/22 05/28/23 Marquise Hanley MD [address] [place] [address] 238655 Assigned Endocrinology Provider 08/15/22 Dom Eason MD 717 [facility] 353 [place], [place] 221654 Assigned Nephrology Provider 11/28/22 02/19/23 Wagner Oliver MD [address] [place] [address] Critical Care 12/15/22 Laura Epperson NP 717 [facility] 1932 [place] [address] Assigned Nephrology Provider 02/20/23 08/30/24 Thom Taveras MD [address] [place], [place] 341894 Assigned Cancer Care Provider 02/06/23 08/20/23 Joesph Crowe MD [address] [place] [address]952 MD Surgery 03/17/23 Joesph Crowe MD [address] [place] [address] 20060 Assigned Surgical Provider 04/03/23 09/30/24 Adonay Haq MD [address] [place] [address] Internal Medicine 06/14/23OctoberDenilson MD 6405 [facility] Black [facility] [place] [address] Assigned Heart and Vascular Provider 05/29/23 11/28/24 Jason Alvares MD [address] [place] [address] 6[address] Assigned Neuroscience Provider 05/15/23 11/28/24 Ruth Riddle DPM, Podiatry/Foot and Ankle Surgery [address] [facility] 300 [place] [address] Assigned Musculoskeletal Provider 10/22/23 Jignesh Mathias MD [address] [place] [address] Gastroenterology 09/25/24 Adoany Haq MD [address] [place] [address] 49777 Assigned PCP 10/01/24 12/28/24 Omar Carmona MD [address] [place] [address] 700105 Assigned PCP 12/29/24 Jason Alvares MD [address] [place] [address] Assigned Neuroscience Provider 12/29/24 Jignesh Mathias MD [address] [place] [address] Assigned Surgical Provider 12/29/24 Ayad Lopez, PhD LP [address] [place] [address] Assigned Behavioral Health Provider 02/28/25 Gavi Nieto, PA-C [address] [place] [address] Physician Marketing Administrative Assistant Dermatology 03/19/25 documented as of this encounter
--- OUTSIDE RECORDS SUMMARY | 2025-06-10 11:28 | XMS_ITS | Encounter Summary ---
Author Organization [place] Address [address] [place] [address] Care Team Providers Care Fermenter Champagne Name Role Phone Rio Jaquez MD Primary Care Provider + [phone] Barry Kilpatrick MD Unavailable Michelle Henderson RN Unavailable [phone] Rio Jaquez MD Unavailable +[phone] Jemima Jaramillo MD Unavailable Unavai Kelley Bautista RN Unavailable +[phone] Sydnee Saleem MD Unavailable +[phone] Karlene Moya MD Unavailable [phone] Wilbert Quintero OD Unavailable +[phone] Rod GauthierM Unavailable +[phone] Nallely Hogue RN Unavailable Unavailable Larisa Vargas RN Unavailable Unavailable Rio Jaquez MD Unavailable +[phone] Ruth Yarbrough MD Unavailable +[phone] Francisco Lott MD Unavailable +[phone] Frida Grace MD Unavailable +[phone] Sydnee Saleem MD Unavailable +[phone] [...] NP Unavailable +[phone] Thom Taveras MD Unavailable +[phone] Joesph Crowe MD Unavailable +[phone] Joesph Crowe MD Unavailable +[phone] Adonay Haq MD Unavailable [phone] [facility] MD Unavailable +[phone] Jason Alvares MD Unavailable Ruth Riddle DPM, Podiatry /Foot and Ankle Surgery Unavailable Omar Carmona MD Primary Care Provider [phone] Jignesh Mathias MD Unavailable Adonay Haq MD Unavailable [phone] Omar bragg MD Unavailable [phone] Jason Alvares MD Unavailable Jignesh Mathias MD Unavailable Ayad Lopez PhD LP Unavailable +[phone] Gavi Nieto-Keisha Unavailable [phone] Encounter Details Date Type Department Care Team (Late st Contact Info) Description 11/06/2019 [facility] [address] [address] Francisco Lott MD [address] [place] [address] Social History Tobacco Use Types Packs/Day Years Used Date Smoking Tobacco: Every Day Cigarettes 1 42.8 Started: 08/09/1982 Smokeless Tobacco: Never Alcohol Use Standard Drinks/Week Comments Yes 0 (1 standard drink = 0.6 oz pur e alcohol) occ Comments No Sex and Gender Information Value Date Recorded Sex Assigned at Female 09/12/2020 12:05 PM CARPET MECHANIC Legal Sex Female 3:26 AM CARPET MECHANIC Gender Identity Female 09/12/2020 12:05 PM CARPET MECHANIC Sexual Orientation Straight 12/19/2021 10 :44 AM CDT Occupation Industry Job Start Date Job End Date on disability for FMS Not on file Not on file Not on file documented as of this encounter Plan of Treatment Upcoming Encounters Date Type Department Care Team (Late st Contact Info) Description 06/13/2025 6:00 PM CARPET MECHANIC Ancillary Procedure [facility] Imaging Center CT Clinic [address] [phone] Omar Carmona MD [address] [place] [address] 673665 06/14/2025 4:00 PM CARPET MECHANIC Office Visit [facility] Primary Care [address] [address] Omar Carmona MD [address] [place] [address] 017605 06/15/2025 12:45 PM CARPET MECHANIC Therapy Visit [facility] Rehabilitation Services [address] [phone] Jason Alvares MD [address] [place] [address] 295 [place], [place] 291765 Chaya Castillo, LETA [facility] 150 [place] [address] 06/19/2025 10:30 AM CARPET MECHANIC Virtual Visit [facility] Primary Care [address] [phone] Omar Carmona MD [address] [place] [address] 062235 Gerson Santos FARZAD 06/26/2025 11:00 AM CARPET MECHANIC Therapy Visit [address] [phone] Jason Alvares MD [address] [place] [address] Chaya Castillo, OTR [address] [address] 07/09/2025 12:45 PM CARPET MECHANIC Therapy Visit [address] [phone] Jason Alvares MD [address] [place] [address] Chaya Castillo, OTR [address] [address] 07/18/2025 3:00 PM CARPET MECHANIC Office Visit [facility] Heart Clinic [address] [phone] Adonay Chapman APRN [facility] 500 [place] [address] 11/05/2025 12:30 PM CDT Lab [facility] Lab [address] [phone] 11/05/2025 1:45 PM CDT Office Visit [facility] Dermatology Clinic [address] 3rd [place] [phone] Gavi Nieto PA-C Dermatology [address] [place] [address] 11/20/2025 10:30 AM CDT Virtual Visit [address] [address] Marquise Hanley MD [address] [place] [address] 80992 documented as of this encounter Goals Goal [...] Total Score: 10 019 7:06 AM CARPET MECHANIC documented as of this encounter Care Teams Fermenter Champagne Relationship Specialty Start Date End Date Rio Jaquez MD [address] [place] [address] PCP - General Family Practice 12/02/10 07/13/24 Omar Carmona MD [address] [place] [address] 91744 PCP - General Family Medicine 07/14/24 Barry Kilpatrick MD [address] [place] [address] [id number] [place] [address] Neurology 07/19/14 Michelle Henderson I, RN Nurse Coordinator Neurology 07/19/14 Rio Jaquez MD [address] [place] [address] 831945 Family Practice 10/15/14 Jemima Jaramillo MD signal operator 11/20/14 Kelley Chin, TANIA [email or web address] 909 [place], [place] 377745 Nurse Coordinator Cardiology 11/04/15 Sydnee Saleem MD 420 [facility] 508 [place], [place] 874005 Cardiology 11/04/15 Karlene Moya MD 6 [place], [place] 480675 Ophthalmology 06/24/17 Wilbert Quintero, OD [address] [place] [address] 248525 Optometry 06/24/17 Rod Gauthier DPM [address] [place] [address] 652155 Loss Prevention Analyst Primary Podiatric Medicine 06/21/18 Nallely Hogue, RN Registered Nurse 02/20/19 11/23/22 Larisa Vargas, TANIA Specialty Clinic Office Assistant Cardiology 04/18/19 03/06/22 Rio Jaquez MD [address] [place] [address] [phone] Assigned PCP 12/28/19 11/16/20 Ruth Yarbrough MD 420 [facility] 101 [place], [place] 931195 Assigned Endocrinology Provider 05/31/20 09/28/20 Francisco Lott MD [address] [place] [address]50 Assigned Rheumatology Provider 05/31/20 12/13/21 Frida Grace MD 3305 [facility] [place] [address] Assigned Pediatric Specialist Provider 05/31/20 09/08/20 Sydnee Saleem MD [address] [address] Assigned Heart and Vascular Provider 05/31/20 10/22/20 Greg Ortega MD [address] [place] [address]48 Assigned Surgical Provider 06/23/20 12/06/21 Frida Grace MD [address] [place] [address] [place] [address] Assigned Surgical Provider 05/31/20 06/22/20 Jan Mamhood MD [address] [place] [address] Gastroenterology 11/05/20 Brandt Quintana MD [address] [place] [address] Resident 11/05/20 Jan Mahmood MD [address] [place] [address] Assigned Gastroenterology Provider 12/01/20 Rio Jaquez MD 909 [facility] 4 [place] [address] Assigned PCP 11/17/20 09/30/24 Dom Eason MD [address] [place] [address] 353 [place] [address] Internal Medicine 12/02/20 Jayla Plaza, RN Specialty Clinic Office Assistant Hepatology 01/09/21 02/13/24 Jayla Plaza, RN Specialty Clinic Office Assistant Hepatology 01/10/21 01/10/21 Sydnee Saleem MD [address] [place] [address] Assigned Heart and Vascular Provider 02/02/21 07/24/22 Phan Coello MD Assigned Neuroscience Provider 02/21/21 11/22/21 Cristian Barragan MD [address]45 [place] [address] Assigned Infectious Disease Provider 02/21/21 03/06/22 Dom Eason MD [address] [place] [address] 353 [place] [address] Assigned Nephrology Provider 04/20/21 01/02/22 Jaimie Vernon, RN Specialty Clinic Office Assistant Cardiology 10/28/21 Ruth Riddle, DPM, Podiatry/Foot and Ankle Surgery [address] [place] [address] [place] [address] Assigned Musculoskeletal Provider 11/30/21 09/30/23 Luis Arrington MD [address] [place] [address] 18564 Assigned Neuroscience Provider 11/23/21 01/02/22 Jason Alvares MD [address] [place] [address]39 Assigned Neuroscience Provider 01/03/22 05/15/22 Marquise Hanley MD [address] [place] [address] 8[address] Endocrinology, Diabetes, and Metabolism 03/05/22 Vlad Ramey MD [address] [place] [address] 27964 Cardiovascular Disease 05/07/22 Joesph Crowe MD [address] [place] [address] 84287 Surgery 05/07/22 Luis Arrington MD [address] [place] [address] 34009 Assigned Neuroscience Provider 05/16/22 05/14/23 Michelle Padilla RN Specialty Clinic Office Assistant Cardiology 07/03/22 Vlad Ramey MD [address] [place] [address] 00184 Assigned Heart and Vascular Provider 07/25/22 05/28/23 Marquise Hanley MD [address] [place] [address] 9[address] Assigned Endocrinology Provider 08/15/22 Dom Eason MD 717 [facility] MICHAEL [address] [place] [address] Assigned Nephrology Provider 11/28/22 02/19/23 Wagner Oliver MD [address] [place] [address] Critical Care 12/15/22 Laura Epperson NP 7 [facility] 1932 [place] [address] Assigned Nephrology Provider 02/20/23 08/30/24 Thom Taveras MD [facility] [address] [place] [address] Assigned Cancer Care Provider 02/06/23 08/20/23 Joesph Crowe MD [address] [place] [address] 65644 Surgery 03/17/23 Joesph Crowe MD [address] [place] [address] 10866 Assigned Surgical Provider 04/03/23 09/30/24 Adonay Haq MD [address] [place] [address] 5[address]41 Internal Medicine 06/14/23OctoberDenilson MD [address] [place] [address] Assigned Heart and Vascular Provider 05/29/23 11/28/24 Jason Alvares MD 420 [facility] 295 [place] [address] Assigned Neuroscience Provider 05/15/23 11/28/24 Ruth Riddle, DPM, Podiatry/Foot and Ankle Surgery [address] [place], [place] 913987 Assigned Musculoskeletal Provider 10/22/23 Jignesh Mathias MD [address] [place] [address] 856815 Gastroenterology 09/25/24 Adonay Haq MD [address] [place] [address] 553495 Assigned PCP 10/01/24 12/28/24 Omar Carmona MD [address] [place] [address] 525895 Assigned PCP 12/29/24 Jason Alvares MD [address] [place] [address] Assigned Neuroscience Provider 12/29/24 Jignesh Mathias MD [address] [place] [address] 52446 Assigned Surgical Provider 12/29/24 Ayad Lopez, PhD LP [address] [place] [address] 80753 Assigned Behavioral Health Provider 02/28/25 Gavi Nieto PA-C [address] [place], [place] 983615 Physician Maple Products Maker Dermatology 03/19/25 documented as of this encounter
--- OUTSIDE RECORDS SUMMARY | 2025-06-10 11:28 | XMS_ITS | Encounter Summary ---
Author Organization [facility] Address [address] [place] [address] 41487 Care Team Providers Care Dry Color Tester Name Role Phone Rio Jaquez MD Primary Care Provider [phone] Barry Kilpatrick MD Unavailable Michelle Henderson RN Unavailable [phone] Rio Jaquez MD Unavailable +[phone] Jemima Jaramillo MD Unavailable Unavai Kelley Bautista RN Unavailable +[phone] Sydnee Saleem MD Unavailable +[phone] Karlene Moya MD Unavailable +[phone] Wilbert Quintero OD Unavailable +[phone] Rod GauthierM Unavailable + [phone] Kerrie Verdin PA-C Unavailable +[phone] Nallely oHgue RN Unavailable Unavailable Larisa Vargas RN Unavailable Unavailable Rio Jaquez MD Unavailable +[phone] Ruth Yarbrough MD Unavailable +[phone] Francisco Lott MD Unavailable +[phone] Frida Grace MD Unavailable +[phone] Sydnee Saleem MD Unavailable +[phone] Greg Ortega MD Unavailable +[phone] Frida Grace MD Unavailable +[phone] Jan Mahmood MD Unavailable Brandt Quintana MD Unavailable Jan Mahmood MD Unavailable Rio Jaquez MD Unavailable +[phone] Dom Easno MD Unavailable Jayla Plaza RN Unavailable +[phone] Vlad Ramey MD Unavailable +[phone] oJesph Crowe MD Unavailable Luis Arrington MD Unavailable +[phone] Michelle Padilla RN Unavailable Unavaila Vlad Rodriguez MD Unavailable +[phone] Marquise Hanley MD Unavailable +[phone] Dom Eason MD Unavailable +[phone] Wagner Oliver MD Unavailable +[phone] Laura Epperson NP Unavailable +[phone] Thom Taveras MD Unavailable +[phone] Joesph Crowe MD Unavailable +[phone] Joesph Crowe MD Unavailable +- [phone] Adonay Haq MD Unavailable +[phone] Denilson Srinivasan MD Unavailable +[phone] Jason Alvares MD Unavailable Ruth Riddle DPM, Podiatry /Foot and Ankle Surgery Unavailable Omar Carmona MD Primary Care Provider [phone] Jignesh Mathias MD Unavailable Adonay Haq MD Unavailable +[phone] Omar Carmona MD Unavailable +[phone] Jason Alvares MD Unavailable Jignesh Mathias MD Unavailable Ayad Lopez PhD LP Unavailable +[phone] Gavi Nieto PA-C Unavailable +[phone] Encounter Details Date Type Department Care Team (Late st Contact Info) Description 03/08/2019 [facility] Care Coordination, Ambulatory [address] [place] [address] Lizbeth Lopes Social History Tobacco Use Types Packs/Day Years Used Date Smoking Tobacco: Every Day Cigarettes 1 42.8 Started: 08/09/1982 Smokeless Tobacco: Never Alcohol Use Standard Drinks/Week Comments Yes 0 (1 standard drink = 0.6 oz pur e alcohol) occ Comments No Sex and Gender Information Value Date Recorded Sex Assigned at Female 09/12/2020 12:05 PM [employer] Legal Sex Female 3:26 AM [employer] Gender Identity Female 09/12/2020 12:05 PM [employer] Sexual Orientation Straight 12/19/2021 10 :44 AM CDT Occupation Industry Job Start Date Job End Date on disability for FMS Not on file Not on file Not on file documented as of this encounter Plan of Treatment Upcoming Encounters Date Type Department Care Team (Late st Contact Info) Description 06/13/2025 6:00 PM [employer] Ancillary Procedure [facility] Clinic [address] [phone] Omar Carmona MD [address] [place] [address] [phone] 06/14/2025 4:00 PM [employer] Office Visit [facility] Primary Care [address] [phone] Omar Carmona MD [address] [place] [address] 024465 06/15/2025 12:45 PM [employer] Therapy Visit [facility] Rehabilitation Services [address] [phone] Jason Alvares MD 420 [facility] 295 [place], [place] [address]25 Chaya Castillo, OTR [facility] 150 [place] [address] 06/19/2025 10:30 AM [employer] Virtual Visit [facility] Primary Care [address] [phone] Omar Carmona MD [address] [place] [address] 001815 Gerson Santos RPH 06/26/2025 11:00 AM [employer] Therapy Visit [facility] 150 [place] [address] Jason Alvares MD [address] [place] [address] Chaya Castillo, OTR [address] [address] 07/09/2025 12:45 PM [employer] Therapy Visit [address] [phone] Jason Alvares MD [address] [place] [address] Chaya Castillo OTR [address] [address] 07/18/2025 3:00 PM [employer] Office Visit [facility] Heart [address] [phone] Adonay Chapman APRN [address] [address] 11/05/2025 12:30 PM CDT Lab [facility] Lab [address]st [place] [phone] 11/05/2025 1:45 PM CDT Office Visit [facility] Dermatology Clinic [address]rd [place] [phone] Gavi Nieto PA-C Dermatology [address] [place] [address] 11/20/2025 10:30 AM CDT Virtual Visit [address] [place] [phone] Marquise Hanley MD 9 [place], [place] 138145 documented as of this encounter Goals Goal [...] Depression Total Score: 10 019 7:06 AM [employer] documented as of this encounter Care Teams Dry Color Tester Relationship Specialty Start Date End Date Rio Jaquez MD [address] [place] [address] 45897 PCP - General Family Practice 12/02/10 07/13/24 Omar Carmona MD [address] [place] [address] 64021 PCP - General Family Medicine 07/14/24 Barry Kilpatrick MD [address] [place] [address] [id number] [place] [address] Neurology 07/19/14 Michelle Henderson I, RN Nurse Coordinator Neurology 07/19/14 Rio Jaquez MD [address] [place] [address] 8[address]25 Family Practice 10/15/14 Jemima Jaramillo MD slot floor attendant 11/20/14 Kelley Chin, TANIA [facility] 909 [place], [place] [phone] Nurse Coordinator Cardiology 11/04/15 Sydnee Saleem MD [address] [place] [address] 508 [place] [address] Cardiology 11/04/15 Karlene Moya MD [address] [place] [address] Ophthalmology 06/24/17 Wilbert Quintero, OD [address] [place] [address] Optometry 06/24/17 Rod Gauthier DPM [address] [place] [address] [id number] Energy Rater Primary Podiatric Medicine 06/21/18 Kerrie Verdin PA-C [address] [place] [address] Physician Or Rn Physician Or Rn 06/21/1808/07 Nallely Hogue, RN Registered Nurse 02/20/19 11/23/22 Larisa Vargas, TANIA Specialty [facility] Cardiology 04/18/19 03/06/22 Rio Jaquez MD [address] [place] [address] 417405 Assigned PCP 12/28/19 11/16/20 Ruth Yarbrough MD 420 [facility] 101 [place] [address] Assigned Endocrinology Provider 05/31/20 09/28/20 Francisco Lott MD 515 [facility] 88 [place] [address] Assigned Rheumatology Provider 05/31/20 12/13/21 [place] [address] [place] [address] JASON ANDERSON [address] Assigned Pediatric Specialist Provider 05/31/20 09/08/20 Sydnee Saleem MD [address] [address] Assigned Heart and Vascular Provider 05/31/20 10/22/20 Greg Ortega MD [address] [place] [address] Assigned Surgical Provider 06/23/20 12/06/21 [place] [address] [place] [address] JASON ANDERSON [address] Assigned Surgical Provider 05/31/20 06/22/20 Jan Mahmood MD 516 [facility] 2A [place] [address] Gastroenterology 11/05/20 Brandt Quintana MD [facility]4 [place] [address] Resident 11/05/20 Jan Mahmood MD 516 [facility] 2A [place] [address] Assigned Gastroenterology Provider 12/01/20 Rio Jaquez MD 909 [facility] [place] 4 [place], [place] 639925 Assigned PCP 11/17/20 09/30/24 Dom Eason MD 717 [facility] 353 [place], [place] [phone] Internal Medicine 12/02/20 Jayla Plaza, RN Specialty [facility] Hepatology 01/09/21 02/13/24 Jayla Plaza, RN Specialty [place] Hepatology 01/10/21 01/10/21 Sydnee Saleem MD 6550 [place] [address] Assigned Heart and Vascular Provider 02/02/21 07/24/22 Phan Coello MD Assigned Neuroscience Provider 02/21/21 11/22/21 Cristian Barragan MD [facility]5 [place] [address] Assigned Infectious Disease Provider 02/21/21 03/06/22 Dom Eason MD 717 [facility] 353 [place] [address] Assigned Nephrology Provider 04/20/21 01/02/22 Jaimie Vernon, TANIA Specialty [place] Cardiology 10/28/21 Ruth Riddle DPM, Podiatry/Foot and Ankle Surgery [address] [address] Assigned Musculoskeletal Provider 11/30/21 09/30/23 Luis Arrington MD [address] [place] [address] Assigned Neuroscience Provider 11/23/21 01/02/22 Jason Alvares MD [address] [place] [address] 832345 Assigned Neuroscience Provider 01/03/22 05/15/22 Marquise Hanley MD [address] [place] [address] 6[address] Endocrinology, Diabetes, and Metabolism 03/05/22 Vlad Ramey MD [address] [place] [address] 60632 Cardiovascular Disease 05/07/22 Joesph Crowe MD [address] [place] [address] 52049 Surgery 05/07/22 Luis Arrington MD [address] [place] [address] 7[address] Assigned Neuroscience Provider 05/16/22 05/14/23 Michelle Padilla, TANIA Specialty [facility] Cardiology 07/03/22 Vlad Ramey MD [address] [place] [address] 89[address] Assigned Heart and Vascular Provider 07/25/22 05/28/23 Marquise Hanley MD [address] [place] [address] Assigned Endocrinology Provider 08/15/22 Dom Eason MD 7 [facility] [address] [place] [address] Assigned Nephrology Provider 11/28/22 02/19/23 Wagner Oliver MD [address] [place] [address] Critical Care 12/15/22 Laura Epperson NP [address] [place] [address] 1932 [place] [address] Assigned Nephrology Provider 02/20/23 08/30/24 Thom Taveras MD [address] [place] [address], [address] [address] Assigned Cancer Care Provider 02/06/23 08/20/23 Joesph Crowe MD [address] [place] [address] Surgery 03/17/23 Joesph Crowe MD [address] [place] [address] 22770 Assigned Surgical Provider 04/03/23 09/30/24 Adonay Haq MD [address] [place] [address] Internal Medicine 06/14/23OctoberDenilson MD [address] [place] [address] JASON HUNTER [address] Assigned Heart and Vascular Provider 05/29/23 11/28/24 Jason Alvares MD [address] [place] [address] Assigned Neuroscience Provider 05/15/23 11/28/24 Ruth Riddle DPM, Podiatry/Foot and Ankle Surgery [address] [place] [address] Assigned Musculoskeletal Provider 10/22/23 Jignesh Mathias MD [address] [place] [address]10 Gastroenterology 09/25/24 Adonay Haq MD [address] [place] [address] 18551 Assigned PCP 10/01/24 12/28/24 Omar Carmona MD [address] [place] [address] Assigned PCP 12/29/24 Jason Alvares MD [address] [place] [address] Assigned Neuroscience Provider 12/29/24 Jignesh Mathias MD [address] [place] [address] Assigned Surgical Provider 12/29/24 Ayad Lopez, PhD LP [address] [place] [address] Assigned Behavioral Health Provider 02/28/25 Gavi Nieto PA-C [address] [place] [address] Physician Or Rn Dermatology 03/19/25 documented as of this encounter
--- OUTSIDE RECORDS SUMMARY | 2025-06-10 11:28 | XMS_ITS | Encounter Summary ---
Author Organization [facility] Address [address] [place] [address] Care Team Providers Care Certified Energy Manager Name Role Phone Rio Jaquez MD Primary Care Provider + [phone] Barry Kilpatrick MD Unavailable Michelle Henderson RN Unavailable [phone] Rio Jaquez MD Unavailable +[phone] Jemima Jaramillo MD Unavailable Unavai Kelley Bautista RN Unavailable +[phone] Sydnee Saleem MD Unavailable +[phone] Karlene Moya MD Unavailable +[phone] Wilbert Quintero OD Unavailable +[phone] Rod GauthierM Unavailable +[phone] Nallely Hogue RN Unavailable Unavailable Larisa Vargas RN Unavailable Unavailable Rio Jaquez MD Unavailable +[phone] Ruth Yarbrough MD Unavailable +[phone] Francisco Lott MD Unavailable +[phone] Frida Grace MD Unavailable +[phone] Sydnee Saleem MD Unavailable +[phone] [...] Unavailable +[phone] Thom Taveras MD Unavailable +[phone] Joesph Crowe MD Unavailable +[phone] Joesph Crowe MD Unavailable +[phone] Adonay Haq MD Unavailable [facility] Unavailable +[phone] Jason Alvares MD Unavailable Ruth Riddle DPM, Podiatry /Foot and Ankle Surgery Unavailable Omar Carmona MD Primary Care Provider [phone] Jignesh Mathias MD Unavailable Adonay Haq MD Unavailable +[phone] Omar bragg MD Unavailable +[phone] Jason Alvares MD Unavailable Jignesh Mathias MD Unavailable Ayad Lopez PhD LP Unavailable +[phone] Gavi Nieto-C Unavailable +[phone] Reason for Visit * Reason Onset Date Comments MyChart Communication 08/23/2019 Encounter Details Date Type Department Care Team (Latest Contact Info) Description 08/23/2019 MyC Medical Advice [facility] [address] [phone] Rio Jaquez MD [address] [address] MyChart Communication Social History Tobacco Use Types Packs/Day Years Used Date Smoking Tobacco: Every Day Cigarettes 1 42.8 Started: 08/09/1982 Smokeless Tobacco: Never Alcohol Use Standard Drinks/Week Comments Yes 0 (1 standard drink = 0.6 oz pur e alcohol) occ Comments No Sex and Gender Information Value Date Recorded Sex Assigned at Female 09/12/2020 12:05 PM SENIOR SITE MANAGER Legal Sex Female 3:26 AM SENIOR SITE MANAGER Gender Identity Female 09/12/2020 12:05 PM SENIOR SITE MANAGER Sexual Orientation Straight 12/19/2021 10 :44 AM CDT Occupation Industry Job Start Date Job End Date on disability for FMS Not on file Not on file Not on file documented as of this encounter Miscellaneous Notes * Telephone Encounter - Michelle Sandoval - 08/23/2019 4:30 PM CST Replied to pt via Michelle Sandoval Rolling Machine Operator on 08/23/2019 at 4:34 PM OR SITE MANAGER documented in this encounter Plan of Treatment Upcoming Encounters Date Type Department Care Team (Late st Contact Info) Description 06/13/2025 6:00 PM SENIOR SITE MANAGER Ancillary Procedure [facility] Imaging Center CT Clinic [address]st [place] [phone] Omar Carmona MD [address] [place] [address] 779055 06/14/2025 4:00 PM SENIOR SITE MANAGER Office Visit [facility] Primary Care Clinic [address] 4th [place] [phone] Omar Carmona MD [address] [place] [address] 577065 06/15/2025 12:45 PM SENIOR SITE MANAGER Therapy Visit [facility] Rehabilitation Services [address] [address] Jason Alvares MD [address] [place] [address] 740855 Chaya Castillo OTR [facility] 150 [place] [address] 06/19/2025 10:30 AM SENIOR SITE MANAGER Virtual Visit [facility] Primary Care Clinic [address] [place] [phone] Omar Carmona MD [address] [place] [address] 710125 Gerson Santos, [facility] 06/26/2025 11:00 AM SENIOR SITE MANAGER Therapy Visit [address] [phone] Jason Alvares MD [address] [place] [address] Chaya Castillo OTR [address] [address] 07/09/2025 12:45 PM SENIOR SITE MANAGER Therapy Visit [address] [phone] Jason Alvares MD [address] [place] [address] Chaya Castillo [facility]TR [facility] 150 [place] [address] 07/18/2025 3:00 PM SENIOR SITE MANAGER Office Visit [facility] Heart Clinic [address] [phone] Adonay Chapman APRN [address] 897405 11/05/2025 12:30 PM CDT Lab [facility] Lab [address] [phone] 11/05/2025 1:45 PM CDT Office Visit [facility] Dermatology Clinic [place] 909 [facility] 3rd [place] [phone] Gavi Nieto PA-C Dermatology [address] [place] [address] 11/20/2025 10:30 AM CDT Virtual Visit [address] [place] [phone] Marquise Hanley MD [address] [place] [address] 032075 documented as of this encounter Goals Goal [...] Depression Total Score: 10 019 7:06 AM SENIOR SITE MANAGER documented as of this encounter Care Teams Certified Energy Manager Relationship Specialty Start Date End Date Rio Jaquez MD [address] [place] [address] 4 [place] [address] PCP - General Family Practice 12/02/10 07/13/24 Omar Carmona MD [address] [place] [address] PCP - General Family Medicine 07/14/24 Barry Kilpatrick MD [address] [place] [address] [id number] [place], [place] 857475 Neurology 07/19/14 Michelle Henderson I, RN Nurse Coordinator Neurology 07/19/14 Rio Jaquez MD [address] [place] [address] [address] 4 [place], [place] 869245 Family Practice 10/15/14 Jemima Jaramillo MD keyseating machine set up operator 11/20/14 Kelley Chin RN [address] 953905 Nurse Coordinator Cardiology 11/04/15 Sydnee Saleem MD [address] [place] [address] 508 [place], [place] 003115 Cardiology 11/04/15 Karlene Moya MD [address] [place] [address] 254805 Ophthalmology 06/24/17 Wilbert Quintero, OD [address] [place] [address] Optometry 06/24/17 Rod Gauthier DPM [address] [place] [address] 976995 Cone Tender Primary Podiatric Medicine 06/21/18 Nallely Hogue, RN Registered Nurse 02/20/19 11/23/22 Larisa Vargas, TANIA Specialty Flight Crew Scheduler Cardiology 04/18/19 03/06/22 Rio Jaquez MD 909 [facility] [address] 4 [place] [address] Assigned PCP 12/28/19 11/16/20 Ruth Yarbrough MD 420 [facility] 101 [place] [address] Assigned Endocrinology Provider 05/31/20 09/28/20 Francisco Lott MD 515 [facility] 88 [place], [place] 941015 Assigned Rheumatology Provider 05/31/20 12/13/21 Frida Grace MD [address] [place] [address] JASON ANDERSON [address] Assigned Pediatric Specialist Provider 05/31/20 09/08/20 Sydnee Saleem MD [address] [place] [address] [phone] Assigned Heart and Vascular Provider 05/31/20 10/22/20 Greg Ortega MD 909 [place] [address] Assigned Surgical Provider 06/23/20 12/06/21 Frida Grace MD [address] [place] [address] JASON ANDERSON [address] Assigned Surgical Provider 05/31/20 06/22/20 Jan Mahmood MD 516 [facility] [address] [address] [place] [address] Gastroenterology 11/05/20 Brandt Quintana MD 1414 [place] [address] Resident 11/05/20 Jan Mahmood MD 516 [facility] [address] [address] [place], [place] 702195 Assigned Gastroenterology Provider 12/01/20 Rio Jaquez MD 909 [facility] [address] 4 [place] [address] Assigned PCP 11/17/20 09/30/24 Dom Eason MD 717 [facility] 353 [place] [address] Internal Medicine 12/02/20 Jayla Plaza, RN Specialty Flight Crew Scheduler Hepatology 01/09/21 02/13/24 Jayla Plaza, RN Specialty Flight Crew Scheduler Hepatology 01/10/21 01/10/21 Sydnee Saleem MD 6550 [facility] [address] [place], [place] [phone] Assigned Heart and Vascular Provider 02/02/21 07/24/22 Phan Coello MD Assigned Neuroscience Provider 02/21/21 11/22/21 Cristian Barragan MD 2945 [place] [address] Assigned Infectious Disease Provider 02/21/21 03/06/22 Dom Eason MD 717 [facility] 353 [place] [address] Assigned Nephrology Provider 04/20/21 01/02/22 Jaimie Vernon, RN Specialty Flight Crew Scheduler Cardiology 10/28/21 Ruth Riddle, DPM, Podiatry/Foot and Ankle Surgery [address] [facility] 300 [place] [address] Assigned Musculoskeletal Provider 11/30/21 09/30/23 Luis Arrington MD [address] [place] [address]28 Assigned Neuroscience Provider 11/23/21 01/02/22 Jason Alvares MD [address] [place] [address] 295 [place] [address] Assigned Neuroscience Provider 01/03/22 05/15/22 Marquise Hanley MD [address] [place] [address] 6[address]56 Endocrinology, Diabetes, and Metabolism 03/05/22 Vlad Ramey MD [address] [place] [address] 94441 Cardiovascular Disease 05/07/22 Joesph Crowe MD [address] [place] [address] 47857 Surgery 05/07/22 Luis Arrington MD [address] [place] [address] 97[address] Assigned Neuroscience Provider 05/16/22 05/14/23 Michelle Padilla, RN Specialty Flight Crew Scheduler Cardiology 07/03/22 Vlad Ramey MD [address] [place] [address]80 Assigned Heart and Vascular Provider 07/25/22 05/28/23 Marquise Hanley MD [address] [place] [address] 52268 Assigned Endocrinology Provider 08/15/22 Dom Easno MD [address] [place] [address] 120[address] Assigned Nephrology Provider 11/28/22 02/19/23 Wagner Oliver MD 6401 [place] [address] Critical Care 12/15/22 Laura Epperson NP [address] [place] [address] 1932 [place] [address] Assigned Nephrology Provider 02/20/23 08/30/24 Thom Taveras MD [address] [place] [address], [address] [place] [address] Assigned Cancer Care Provider 02/06/23 08/20/23 Joesph Crowe MD [address] [place] [address] 6[address]37 Surgery 03/17/23 Joesph Crowe MD [address] [place] [address] 55267 Assigned Surgical Provider 04/03/23 09/30/24 Adonay Haq MD [address] [place] [address] Internal Medicine 06/14/23October, Denilson Jackson MD [address] [facility] [address] [place] [address] Assigned Heart and Vascular Provider 05/29/23 11/28/24 Jason Alvares MD [address] [place] [address] Assigned Neuroscience Provider 05/15/23 11/28/24 Ruth Riddle DPM, Podiatry/Foot and Ankle Surgery [address] [place] [address] Assigned Musculoskeletal Provider 10/22/23 Jignesh Mathias MD [address] [place] [address] 21724 Gastroenterology 09/25/24 Adonay Haq MD [address] [place] [address] Assigned PCP 10/01/24 12/28/24 Omar Carmona MD [address] [place] [address] 69432 Assigned PCP 12/29/24 Jason Alvares MD [address] [place] [address] 62204 Assigned Neuroscience Provider 12/29/24 Jignesh Mathias MD [address] [place] [address] 95852 Assigned Surgical Provider 12/29/24 Ayad Lopez, PhD LP [address] [place] [address] 456495 Assigned Behavioral Health Provider 02/28/25 Gavi Nieto, PANavinC [address] [place], [place] 038335 Physician Commercial Green Building Designer Dermatology 03/19/25 documented as of this encounter
--- OUTSIDE RECORDS SUMMARY | 2025-06-10 11:29 | XMS_ITS | Encounter Summary ---
Author Organization [place] Address [address] [place] [address] 6[address] Care Team Providers Care Senior Cost Accountant Name Role Phone Rio Jaquez MD Primary Care Provider Barry Kilpatrick MD Unavailable Michelle Henderson I RN Unavailable [phone] Rio Jaquez MD Unavailable +[phone] Jemima Jaramillo MD Unavailable Unavai Kelley Bautista RN Unavailable +[phone] Sydnee Saleem MD Unavailable +[phone] Karlene Moya MD Unavailable Wilbert Quintero OD Unavailable +[phone] Rod Gauthier DPM Unavailable Jan Mahmood MD Unavailable +[phone] Brandt Quintana MD Unavailable Jan Mahmood MD Unavailable +[phone] Rio Jaquez MD Unavailable +[phone] Dom Eason MD Unavailable Jayla Plaza [...] Unavailable +[phone] Dom Eason MD Unavailable +[phone] Wagner Oliver MD Unavailable +[phone] Laura Epperson NP Unavailable +[phone] Thom Taveras MD Unavailable +[phone] Joesph Crowe MD Unavailable +[phone] Joesph Crowe MD Unavailable +[phone] Adonay Haq MD Unavailable +[phone] Denilson Srinivasan MD Unavailable + [phone] Jason Alvares MD Unavailable Ruth Riddle DPM, Podiatry /Foot and Ankle Surgery Unavailable Omar Carmona MD Primary Care Provider [phone] Jignesh Mathias MD Unavailable Adonay Haq MD Unavailable +1- Omar Carmona MD Unavailable +[phone] Jason Alvares MD Unavailable Jignesh Mathias MD Unavailable Ayad Lopez PhD LP Unavailable Gavi Nieto PA-C Unavailable Encounter Details Date Type Department Care Team (Late st Contact Info) Description 12/04/2022 MyC Medical Advice [facility] [address] [phone] Jan Mahmood MD [address] [place] [address] [address] [place] [address] Social History Tobacco Use Types Packs/Day Years [...] Answer Date Recorded PHQ-2 Score 2 10/21/2022 [facility] of Occupat ional [facility] - Occupational Stress Questionnaire Answer [...] Sex Assigned at Female 09/12/2020 12:05 PM CABLE SUPERVISOR Legal Sex Female 3:26 AM CABLE SUPERVISOR Gender Identity Female 09/12/2020 12:05 PM CABLE SUPERVISOR Sexual Orientation Straight 12/19/2021 10 :44 [...] st Contact Info) Description 06/13/2025 6:00 PM CABLE SUPERVISOR Ancillary Procedure [facility] CT [facility] [address]st [place] [phone] Omar Carmona MD [address] [place] [address] [phone] 06/14/2025 4:00 PM CABLE SUPERVISOR Office Visit [facility] [address] 4th [place] [phone] Omar Carmona MD [address] [place] [address] 283865 06/15/2025 12:45 PM CABLE SUPERVISOR Therapy Visit [facility] [address] [address] Jason Alvares MD [address] [place] [address] 295 [place], [place] 957675 Chaya Castillo, WESR [address] [address] 06/19/2025 10:30 AM CABLE SUPERVISOR Virtual Visit [facility] [address] [place] [phone] Omar Carmona MD [address] [place] [address] [phone] [facility] 06/26/2025 11:00 AM CABLE SUPERVISOR Therapy Visit [facility] 150 [place] [phone] Jason Alvares MD [address] [place] [address] Chaya Castillo OTR [facility] 150 [place] [address] 07/09/2025 12:45 PM CABLE SUPERVISOR Therapy Visit [facility] 150 [place] [phone] Jason Alvares MD [address] [place] [address] Chaya Castillo OTR [facility] 150 [place] [address] 07/18/2025 3:00 PM CABLE SUPERVISOR Office Visit [facility] [address] [phone] Adonay Chapman APRN [address] 817675 11/05/2025 12:30 PM CDT Lab [facility] [address] [phone] 11/05/2025 1:45 PM CDT Office Visit [facility] [place] 909 [facility] 3rd [place] [phone] Gavi Nieto PA-C Dermatology [address] [place] [address] 11/20/2025 10:30 AM CDT Virtual Visit [address] [phone] Marquise Hanley MD [address] [place] [address] documented as of this encounter Goals Goal [...] as of this encounter Care Teams Senior Cost Accountant Relationship Specialty Start Date End Date Rio Jaquez MD [address] [place] [address] PCP - General Family Practice 12/02/10 07/13/24 Omar Carmona MD [address] [place] [address] PCP - General Family Medicine 07/14/24 Barry Kilpatrick MD [address] [place] [address] [id number] [place], [place] [phone] Neurology 07/19/14 Michelle Henderson I, RN Nurse Coordinator Neurology 07/19/14 Rio Jaquez MD [address] [place] [address] [address] 4 [place] [address] Family Practice 10/15/14 Jemima Jaramillo MD lead instructor/flight attendant 11/20/14 Kelley Chin, TANIA [address] 567425 Nurse Coordinator Cardiology 11/04/15 Sydnee Saleem MD [address] [place] [address] 508 [place], [place] 857745 Cardiology 11/04/15 Karlene Moya MD [address] [place] [address] Ophthalmology 06/24/17 Wilbert Quintero, OD [address] [place] [address] 682195 Optometry 06/24/17 Rod Gauthier DPM [address] [place] [address] 813715 Public Relations Primary Podiatric Medicine 06/21/18 Jan Mahmood MD [address] [place] [address] [address] [place], [place] 339745 Gastroenterology 11/05/20 Brandt Quintana MD 1414 [place] [address] Resident 11/05/20 Jan Mahmood MD [facility] 2[facility] [place] [address] Assigned Gastroenterology Provider 12/01/20 Rio Jaquez MD 909 [facility] 4 [place], [place] 907965 Assigned PCP 11/17/20 09/30/24 Dom Eason MD 717 [facility] 353 [place] [address] Internal Medicine 12/02/20 Jayla Plaza, RN Specialty Indigo Vat Tender Cloth Hepatology 01/09/21 02/13/24 Jaimie Vernon, RN Specialty Indigo Vat Tender Cloth Cardiology 10/28/21 Ruth Riddle DPM, Podiatry/Foot and Ankle Surgery [address] [place] [address] [address] Assigned Musculoskeletal Provider 11/30/21 09/30/23 Marquise Hanley MD [address] [place] [address] 129015 Endocrinology, Diabetes, and Metabolism 03/05/22 Vlad Ramey MD [address] [place] [address] 269065 Cardiovascular Disease 05/07/22 Joesph Crowe MD [address] [place] [address] 45585 Surgery 05/07/22 Luis Arrington MD [address] [place] [address] 16569 Assigned Neuroscience Provider 05/16/22 05/14/23 Michelle Padilla RN Specialty Indigo Vat Tender Cloth Cardiology 07/03/22 Vlad Ramey MD [address] [place] [address] 258275 Assigned Heart and Vascular Provider 07/25/22 05/28/23 Marquise Hanley MD [address] [place] [address] [phone] Assigned Endocrinology Provider 08/15/22 Dom Eason MD 717 [facility] MICHAEL 353 [place], [place] 473384 Assigned Nephrology Provider 11/28/22 02/19/23 Wagner Oliver MD [address] [place] [address] Critical Care 12/15/22 Laura Epperson NP 717 [facility] [address] [place] [address] Assigned Nephrology Provider 02/20/23 08/30/24 Thom Taveras MD 25[address] [facility], [address]105 [place], [place] 827524 Assigned Cancer Care Provider 02/06/23 08/20/23 Joesph Crowe MD [address] [place] [address] MD Surgery 03/17/23 Joesph Crowe MD [address] [place] [address] 22819 Assigned Surgical Provider 04/03/23 09/30/24 Adonay Haq MD [address] [place] [address]89 Internal Medicine 06/14/23OctoberDenilson MD 6405 [facility] Black [facility]00 [place] [address] Assigned Heart and Vascular Provider 05/29/23 11/28/24 Jason Alvares MD [address] [place] [address] Assigned Neuroscience Provider 05/15/23 11/28/24 Ruth Riddle DPM, Podiatry/Foot and Ankle Surgery 22055 [facility] 300 [place] [address] Assigned Musculoskeletal Provider 10/22/23 Jignesh Mathias MD [address] [place] [address] Gastroenterology 09/25/24 Adonay Haq MD [address] [place] [address] 316175 Assigned PCP 10/01/24 12/28/24 Omar Carmona MD [address] [place] [address] 674035 Assigned PCP 12/29/24 Jason Alvares MD [address] [place] [address] Assigned Neuroscience Provider 12/29/24 Jignesh Mathias MD [address] [place] [address] Assigned Surgical Provider 12/29/24 Ayad Lopez, PhD LP [address] [place] [address] Assigned Behavioral Health Provider 02/28/25 Gavi Nieto, PA-C [address] [place] [address] Physician Post Commander Dermatology 03/19/25 documented as of this encounter
--- OUTSIDE RECORDS SUMMARY | 2025-06-10 11:29 | XMS_ITS | Encounter Summary ---
Author Organization [facility] Address [address] [place] [address] Care Team Providers Care License Registration Examiner Name Role Phone Rio Jaquez MD Primary Care Provider Barry Kilpatrick MD Unavailable Michelle Henderson I RN Unavailable [phone] Rio Jaquez MD Unavailable +[phone] Jemima Jaramillo MD Unavailable Unavai Kelley Bautista RN Unavailable [phone] Sydnee Saleem MD Unavailable +[phone] Karlene Moya MD Unavailable +[phone] Wilbert Quintero OD Unavailable +[phone] Rod Gauthier DPM Unavailable +[phone] Jan Mahmood MD Unavailable [phone] Brandt Quintana MD Unavailable [phone] Jan Mahmood MD Unavailable +[phone] Rio Jaquez MD Unavailable +[phone] Dom Eason MD Unavailable Jayla Plaza RN [...] Unavailable +[phone] Dom Eason MD Unavailable +[phone] Wagner Oliver MD Unavailable +[phone] Laura Epperson NP Unavailable +[phone] Thom Taveras MD Unavailable +[phone] Joesph Crowe MD Unavailable +[phone] Joesph Crowe MD Unavailable +[phone] Adonay Haq MD Unavailable +[phone] Denilson Srinivasan MD Unavailable + [phone] Jason Alvares MD Unavailable Ruth Riddle DPM, Podiatry /Foot and Ankle Surgery Unavailable Omar Carmona MD Primary Care Provider +[phone] Jignesh Mathias MD Unavailable Adonay Haq MD Unavailable +1- Omar Carmona MD Unavailable +[phone] Jason Alvares MD Unavailable Jignesh Mathias MD Unavailable Ayad Lopez PhD LP Unavailable Gavi Nieto PA-C Unavailable [phone] Encounter Details Date Type Department Care Team (Late st Contact Info) Description 12/07/[address] [facility] Hepatology Clinic [address] [phone] Jan Mahmood MD [address] [place] [address] [address] [place] [address] Social History Tobacco Use Types Packs/Day Years [...] Answer Date Recorded PHQ-2 Score 2 10/21/2022 [facility] of Occupat ional [facility] - Occupational Stress Questionnaire Answer [...] Sex Assigned at Female 09/12/2020 12:05 PM CLOTHES SHAKER Legal Sex Female 3:26 AM CLOTHES SHAKER Gender Identity Female 09/12/2020 12:05 PM CLOTHES SHAKER Sexual Orientation Straight 12/19/2021 10 :44 AM [...] st Contact Info) Description 06/13/2025 6:00 PM CLOTHES SHAKER Ancillary Procedure [facility] Imaging Center CT Clinic [address] [place] [phone] Omar [place]ona MD [address] [place] [address] [phone] 06/14/2025 4:00 PM CLOTHES SHAKER Office Visit [facility] Primary Care Clinic [address] [place] [phone] Omar Carmona MD [address] [place] [address] 206975 06/15/2025 12:45 PM CLOTHES SHAKER Therapy Visit [facility] Rehabilitation Services [address] [address] Jason Alvares MD [address] [place] [address] 295 [place], [place] 506185 Chaya Castillo, WESR [address] [address] 06/19/2025 10:30 AM CLOTHES SHAKER Virtual Visit [facility] Primary [facility] [address] [place] [phone] Omar Carmona MD [address] [place] [address] [phone] Gerson Santos [facility] 06/26/2025 11:00 AM CLOTHES SHAKER Therapy Visit [facility] 150 [place] [phone] Jason Alvares MD [address] [place] [address] Chaya Castillo OTR [facility] 150 [place] [address] 07/09/2025 12:45 PM CLOTHES SHAKER Therapy Visit [facility] 150 [place] [phone] Jason Alvares MD [address] [place] [address] Chaya Castillo OTR [facility] 150 [place] [address] 07/18/2025 3:00 PM CLOTHES SHAKER Office Visit [facility] Heart Clinic [address] [phone] Adonay Chapman APRN [address] 466955 11/05/2025 12:[address] [facility] Lab [address] [phone] 11/05/2025 1:45 PM CDT Office Visit [facility] Dermatology Clinic [place] 909 [facility] 3rd [place] [phone] Gavi Nieto PA-C Dermatology [address] [place] [address] 11/20/2025 10:30 AM CDT Virtual Visit [address] [phone] Marquise Hanley MD [address] [place] [address] 9[address] documented as of this encounter Goals Goal [...] documented as of this encounter Care Teams License Registration Examiner Relationship Specialty Start Date End Date Rio Jaquez MD [address] [place] [address] PCP - General Family Practice 12/02/10 07/13/24 Omar Carmona MD [address] [place] [address] 6[address]68 PCP - General Family Medicine 07/14/24 Barry Kilpatrick MD [address] [place] [address] [id number] [place], [place] 521735 Neurology 07/19/14 Michelle Henderson I, RN Nurse Coordinator Neurology 07/19/14 Rio Jaquez MD [address] [place] [address] [address] 4 [place] [address] Family Practice 10/15/14 Jemima Jaramillo MD line patroller 11/20/14 Kelley Chin, TANIA [address] 208205 Nurse Coordinator Cardiology 11/04/15 Sydnee Saleem MD [address] [place] [address] 508 [place], [place] 250215 Cardiology 11/04/15 Karlene Moya MD [address] [place] [address] Ophthalmology 06/24/17 Wilbert Quintero, OD [address] [place] [address] 327585 Optometry 06/24/17 Rod Gauthier DPM [address] [place] [address] [phone] Provider Scribe Primary Podiatric Medicine 06/21/18 Jan Mahmood MD [address] [place] [address] [address] [place], [place] 341585 Gastroenterology 11/05/20 Brandt Quintana MD 1414 [place] [address] Resident 11/05/20 Jan Mahmood MD 516 [facility] 2A [place] [address] Assigned Gastroenterology Provider 12/01/20 Rio Jaquez MD 909 [facility] 4 [place], [place] 096185 Assigned PCP 11/17/20 09/30/24 Dom Eason MD 717 [facility] 353 [place] [address] Internal Medicine 12/02/20 Jayla Plaza, RN Specialty Pouncing Machine Operator Hepatology 01/09/21 02/13/24 Jaimie Vernon, RN Specialty Pouncing Machine Operator Cardiology 10/28/21 Ruth Riddle DPM, Podiatry/Foot and Ankle Surgery [address] [place] [address] [address] Assigned Musculoskeletal Provider 11/30/21 09/30/23 Marquise Hanley MD [address] [place] [address] [phone] Endocrinology, Diabetes, and Metabolism 03/05/22 Vlad Ramey MD [address] [place] [address] [phone] Cardiovascular Disease 05/07/22 Joesph Crowe MD [address] [place] [address]28 Surgery 05/07/22 Luis Arrington MD [address] [place] [address] 79870 Assigned Neuroscience Provider 05/16/22 05/14/23 Michelle Padilla RN Specialty Pouncing Machine Operator Cardiology 07/03/22 Vlad Ramey MD [address] [place] [address] [phone] Assigned Heart and Vascular Provider 07/25/22 05/28/23 Marquise Hanley MD [address] [place] [address] [phone] Assigned Endocrinology Provider 08/15/22 Dom Eason MD 717 [facility] 353 [place], [place] 594644 Assigned Nephrology Provider 11/28/22 02/19/23 Wagner Oliver MD [address] [place] [address] Critical Care 12/15/22 Laura Epperson NP 717 [facility] [address] [place] [address] Assigned Nephrology Provider 02/20/23 08/30/24 Thom Taveras MD [address] [facility], [address]105 [place], [place] 833274 Assigned Cancer Care Provider 02/06/23 08/20/23 Joesph Crowe MD [address] [place] [address] 14553 MD Surgery 03/17/23 Joesph Crowe MD [address] [place] [address] 59074 Assigned Surgical Provider 04/03/23 09/30/24 Adonay Haq MD [address] [place] [address] 17963 Internal Medicine 06/14/23OctoberDenilson MD 6405 [facility] CLE[facility] Black [facility]00 [place] [address] Assigned Heart and Vascular Provider 05/29/23 11/28/24 Jason Alvares MD [address] [place] [address] Assigned Neuroscience Provider 05/15/23 11/28/24 Ruth Riddle DPM, Podiatry/Foot and Ankle Surgery 81425 [facility] 300 [place] [address] Assigned Musculoskeletal Provider 10/22/23 Jignesh Mathias MD [address] [place] [address] Gastroenterology 09/25/24 Adonay Haq MD [address] [place] [address] 289095 Assigned PCP 10/01/24 12/28/24 Omar Carmona MD [address] [place] [address] 218605 Assigned PCP 12/29/24 Jason Alvares MD [address] [place] [address] Assigned Neuroscience Provider 12/29/24 Jignesh Mathias MD [address] [place] [address] Assigned Surgical Provider 12/29/24 Ayad Lopez, PhD LP [address] [place] [address] Assigned Behavioral Health Provider 02/28/25 Gavi Nieto, PA-C [address] [place] [address] Physician Speedometer Inspector Dermatology 03/19/25 documented as of this encounter
--- OUTSIDE RECORDS SUMMARY | 2025-06-10 11:29 | XMS_ITS | Encounter Summary ---
Author Organization [place] Address [address] [place] [address] Care Team Providers Care Machine Adjuster Helper Name Role Phone Rio Jaquez MD Primary Care Provider + [phone] Barry Kilpatrick MD Unavailable Michelle Henderson RN Unavailable [phone] Rio Jaquez MD Unavailable +[phone] Jemima Jaramillo MD Unavailable Unavai Kelley Bautista RN Unavailable +[phone] Sydnee Saleem MD Unavailable +[phone] Karlene Moya MD Unavailable +[phone] Wilbert Quintero OD Unavailable +[phone] Rod Gauthier DPM Unavailable +[phone] Nallely Hogue RN Unavailable Unavailable Jan Mahmood MD Unavailable +[phone] Brandt Quintana MD Unavailable +[phone] Jan Mahmood MD Unavailable +[phone] Rio Jaquez MD Unavailable +[phone] Dom Eason MD Unavailable +[phone] Jayla Plaza RN Unavailable +[phone] Jaimie [...] Unavailable +[phone] Dom Eason MD Unavailable +[phone] Wagner Oliver MD Unavailable +[phone] Laura Epperson NP Unavailable +[phone] Thom Taveras MD Unavailable +[phone] Joesph Crowe MD Unavailable +[phone] Joesph Crowe MD Unavailable +[phone] Adonay Haq MD Unavailable +[phone] Denilson Srinivasan MD Unavailable + [phone] Jason Alvares MD Unavailable Ruth Riddle DPM, Podiatry /Foot and Ankle Surgery Unavailable Omar Carmona MD Primary Care Provider +[phone] Jignesh Mathias MD Unavailable Adonay Haq MD Unavailable +1- Omar Carmona MD Unavailable +[phone] Jason Alvares MD Unavailable Jignesh Mathias MD Unavailable Ayad Lopez PhD LP Unavailable +[phone] Gavi Nieto PA-C Unavailable Encounter Details Date Type Department Care Team (Late st Contact Info) Description 10/22/2022 MyC Medical Advice [facility] Heart [address] [phone] Jaimie Vernon RN Social History [...] Answer Date Recorded PHQ-2 Score 2 10/21/2022 [facility] [place] of Occupat ional Health - Occupational Stress [...] Sex Assigned at Female 09/12/2020 12:05 PM HARNESS REPAIRER Legal Sex Female 3:26 AM HARNESS REPAIRER Gender Identity Female 09/12/2020 12:05 PM HARNESS REPAIRER Sexual Orientation Straight 12/19/2021 10 :44 [...] st Contact Info) Description 06/13/2025 6:00 PM HARNESS REPAIRER Ancillary Procedure [facility] Imaging Center CT Clinic [address] [place] [phone] Omar Carmona MD [address] [place] [address] 06/14/2025 4:00 PM HARNESS REPAIRER Office Visit [facility] Primary Care Clinic [address] [place] [phone] Omar Carmona MD [address] [place] [address] 537185 06/15/2025 12:45 PM HARNESS REPAIRER Therapy Visit [facility] Rehabilitation Services [address] [phone] Jason Alvares MD [address] [place] [address] 295 [place], [place] 726575 Chaya Castillo OTR [facility] 150 [place] [address] 06/19/2025 10:30 AM HARNESS REPAIRER Virtual Visit [facility] Care Clinic [address] [place] [address] 4th [place] [phone] Omar Carmona MD [address] [place] [address] [phone] Gerson Santos, [facility] 06/26/2025 11:00 AM HARNESS REPAIRER Therapy Visit [facility] [address] [place] [phone] Jason Alvares MD [address] [place] [address] [phone] Chaya Castillo, OTR [address] [address] 07/09/2025 12:45 PM HARNESS REPAIRER Therapy Visit [facility] [address] [place] [phone] Jason Alvares MD [address] [place] [address] [phone] Chaya Castillo, OTR [address] 870367 07/18/2025 3:00 PM HARNESS REPAIRER Office Visit [facility] Heart Clinic [address] [phone] Adonay Chapman APRN [address] 848155 11/05/2025 12:30 PM CDT Lab [facility] Lab [address] [place] [phone] 11/05/2025 1:45 PM CDT Office Visit [facility] Dermatology Clinic [address] [place] [phone] Gavi Nieto PA-C Dermatology [address] [place] [address] 11/20/2025 10:30 AM CDT Virtual Visit [address] [place] [phone] Marquise Hanley MD [address] [place] [address] documented as of this encounter Goals Goal [...] as of this encounter Care Teams Machine Adjuster Helper Relationship Specialty Start Date End Date Rio Jaquez MD [address] [place] [address] [place] 4 [place] [address] PCP - General Family Practice 12/02/10 07/13/24 Omar Carmona MD [address] [place] [address] 107875 PCP - General Family Medicine 07/14/24 Barry Kilpatrick MD [address] [place] [address] [id number] [place], [place] 256225 Neurology 07/19/14 Michelle Henderson I, RN Nurse Coordinator Neurology 07/19/14 Rio Jaquez MD 9 [facility] 4 [place], [place] 162235 Family Practice 10/15/14 Jemima Jaramillo MD volunteer firefighter 11/20/14 Kelley Chin RN [address] 699015 Nurse Coordinator Cardiology 11/04/15 Sydnee Saleem MD 420 [facility] 508 [place], [place] 475285 Cardiology 11/04/15 Karlene Moya MD [address] [place] [address] 855725 Ophthalmology 06/24/17 Wilbert Quintero, OD [address] [place] [address] 230725 Optometry 06/24/17 Rod Gauthier DPM [address] [place] [address] 426375 Film Sorter Primary Podiatric Medicine 06/21/18 Nallely Hogue, RN Registered Nurse 02/20/19 11/23/22 Jan Mahmood MD [address] [place] [address] 076545 Gastroenterology 11/05/20 Brandt Quintana MD 1414 [place] [address] Resident 11/05/20 Jan Mahmood MD 516 [facility] 2A [place] [address] Assigned Gastroenterology Provider 12/01/20 Rio Jaquez MD 909 [facility] [place] 4 [place], [place] 592195 Assigned PCP 11/17/20 09/30/24 Dom Eason MD 717 [facility] 353 [place], [place] 948924 Internal Medicine 12/02/20 Jayla Plaza, RN Specialty Director Of Manufacturing Operations Hepatology 01/09/21 02/13/24 Jaimie Vernon, RN Specialty Director Of Manufacturing Operations Cardiology 10/28/21 Ruth Riddle, DPM, Podiatry/Foot and Ankle Surgery [address] [place] [address] [address] Assigned Musculoskeletal Provider 11/30/21 09/30/23 Marquise Hanley MD [address] [place] [address] 630385 Endocrinology, Diabetes, and Metabolism 03/05/22 Vlad Ramey MD [address] [place] [address] Cardiovascular Disease 05/07/22 Joesph Crowe MD 9 [place] [address] Surgery 05/07/22 Luis Arrington MD [address] [place] [address] Assigned Neuroscience Provider 05/16/22 05/14/23 Michelle Padilla, RN Specialty Director Of Manufacturing Operations Cardiology 07/03/22 Vlad Ramey MD [address] [place] [address] 504455 Assigned Heart and Vascular Provider 07/25/22 05/28/23 Marquise Hanley MD [address] [place] [address] Assigned Endocrinology Provider 08/15/22 Dom Eason MD 717 [facility] 353 [place] [address] Assigned Nephrology Provider 11/28/22 02/19/23 Wagner Oliver MD [address] [place] [address] Critical Care 12/15/22 Laura Epperson NP 717 [facility] [address] [place] [address] Assigned Nephrology Provider 02/20/23 08/30/24 Thom Taveras MD 25[address] [facility], R105 [place] [address] Assigned Cancer Care Provider 02/06/23 08/20/23 Joesph Crowe MD [address] [place] [address] MD Surgery 03/17/23 Joesph Crowe MD [address] [place] [address]805 Assigned Surgical Provider 04/03/23 09/30/24 Adonay Haq MD [address] [place] [address] 965285 Internal Medicine 06/14/23OctoberDenilson MD [address] [facility]00 [place], [place] 107935 Assigned Heart and Vascular Provider 05/29/23 11/28/24 Jason Alvares MD [address] [place] [address] 199305 Assigned Neuroscience Provider 05/15/23 11/28/24 Ruth Riddle DPM, Podiatry/Foot and Ankle Surgery [address] [place] [address] Assigned Musculoskeletal Provider 10/22/23 Jignesh Mathias MD [address] [place] [address] 218175 Gastroenterology 09/25/24 Adonay Haq MD [address] [place] [address] 151945 Assigned PCP 10/01/24 12/28/24 Omar Carmona MD [address] [place] [address] Assigned PCP 12/29/24 Jason Alvares MD [address] [place] [address] Assigned Neuroscience Provider 12/29/24 Jignesh Mathias MD [address] [place] [address] Assigned Surgical Provider 12/29/24 Ayad Lopez, PhD LP [address] [place] [address] [phone] Assigned Behavioral Health Provider 02/28/25 Gavi Nieto PA-C [address] [place] [address] [phone] Physician Electrical Development Engineer Dermatology 03/19/25 documented as of this encounter
--- OUTSIDE RECORDS SUMMARY | 2025-06-10 11:29 | XMS_ITS | Encounter Summary ---
Author Organization [place] Address [address] [place] [address] Care Team Providers Care Operating Room Scheduler Name Role Phone Barry Kilpatrick MD Unavailable Michelle Henderson RN Unavailable [phone] Rio Jaquez MD Unavailable +[phone] Jemima Jaramillo MD Unavailable Unavai Kelley Bautista RN Unavailable [phone] Sydnee Saleem MD Unavailable +[phone] Karlene Moya MD Unavailable [phone] Wilbert Quintero OD Unavailable +[phone] Rod Gauthier DPM Unavailable +[phone] Jan Mahmood MD Unavailable +[phone] Brandt Quintana MD Unavailable Jan Mahmood MD Unavailable +[phone] Dom Eason MD Unavailable +[phone] Jaimie Vernon RN Unavailable Unavailable Marquise Hanley MD Unavailable +[phone] Vlad Ramey MD Unavailable +[phone] Joesph Crowe MD Unavailable +[phone] Michelle Padilla RN Unavailable Unavaila ble Marquise Hanley MD Unavailable +[phone] Wagner Oliver MD Unavailable + [phone] Joesph Crowe MD Unavailable +[phone] Adonay Haq MD Unavailable [phone] Ruth RiddleM, Podiatry /Foot and Ankle Surgery Unavailable Omar Carmona MD Primary Care Provider [phone] Jignesh Mathias MD Unavailable Omar Carmona MD Unavailable +[phone] Jason Alvarse MD Unavailable Jignesh Mathias MD Unavailable Ayad Lopez PhD LP Unavailable +[phone] Gavi Nieto PA-C Unavailable +[phone] Encounter Details Date Type Department Care Team [...] Answer Date Recorded PHQ-2 Score 2 04/11/[address] [facility] [place] of Occupat ional Health - Occupational Stress [...] in an overnight halfway, or couch-surfing.) Yes 04/30/2025 Are you worried [...] Sex Assigned at Female 09/12/2020 12:05 PM KNITTING TEACHER Legal Sex Female 3:26 AM KNITTING TEACHER Gender Identity Female 09/12/2020 12:05 PM KNITTING TEACHER Sexual Orientation Straight 12/19/2021 10 :44 AM CDT Occupation Industry Job Start Date Job End Date on disability for FMS Not on file Not on file Not on file disabled Not on file Not on file Not on file documented as of this encounter Plan of Treatment Upcoming Encounters Date Type Department Care Team (Late st Contact Info) Description 06/13/2025 6:00 PM KNITTING TEACHER Ancillary Procedure [facility] Imaging Center CT Clinic [address] [phone] Omar Carmona MD [address] [place] [address] [phone] 06/14/2025 4:00 PM KNITTING TEACHER Office Visit [facility] Primary Care Clinic [address] [phone] Omar Carmona MD [address] [place] [address] [phone] 06/15/2025 12:45 PM KNITTING TEACHER Therapy Visit [facility] Rehabilitation Services [address] [phone] Jason Alvares MD 420 [facility] 295 [place], [place] [phone] Chaya Castillo, OTR [facility] 150 [place] [address] 06/19/2025 10:30 AM KNITTING TEACHER Virtual Visit [facility] Primary Care [address] [phone] Omar Carmona MD [address] [place] [address] 911885 Gerson Santos RPH 06/26/2025 11:00 AM KNITTING TEACHER Therapy Visit [facility] 150 [place] [address]387014 Jason Alvares MD [address] [place] [address] Chaya Castillo OTR [facility] 150 [place] [address] 07/09/2025 12:45 PM KNITTING TEACHER Therapy Visit [facility] 150 [place] [phone] Jason Alvares MD [address] [place] [address] Chaya Castillo OTR [facility] 150 [place] [address] 07/18/2025 3:00 PM KNITTING TEACHER Office Visit [facility] Heart [address] [phone] Adonay Chapman APRN [address] [address] 11/05/2025 12:30 PM CDT Lab [facility] Lab [address] [phone] 11/05/2025 1:45 PM CDT Office Visit [facility] Dermatology Clinic [address] [place] [phone] Gavi Nieto PA-C Dermatology [address] [place] [address] 11/20/2025 10:30 AM CDT Virtual Visit [address] [address] Marquise Hanley MD [address] [place] [address] 026545 documented as of this encounter Goals Goal [...] documented as of this encounter Care Teams Operating Room Scheduler Relationship Specialty Start Date End Date Omar Carmona MD [address] [place] [address] PCP - General Family Medicine 07/14/24 Barry Kilpatrick MD [address] [place] [address] [id number] [place] [address] Neurology 07/19/14 Michelle Henderson RN Nurse Coordinator Neurology 07/19/14 Rio Jaquez MD [address] [place] [address] Family Practice 10/15/14 Jemima Jaramillo MD [address] [place] [address] senior investigator 11/20/14 Kelley Chin, TANIA [address] [address] Nurse Coordinator Cardiology 11/04/15 Sydnee Saleem MD 420 [facility] 508 [place], [place] 103955 Cardiology 11/04/15 Karlene Moya MD 6 [place], [place] 273765 Ophthalmology 06/24/17 Wilbert Quintero OD 909 [place], [place] 411445 Optometry 06/24/17 Rod Gauthier DPM 909 [place], [place] 645555 Head Mixer Primary Podiatric Medicine 06/21/18 Jan Mahmood MD [address] [place] [address] Gastroenterology 11/05/20 Brandt Quintana MD [address] [place] [address] Resident 11/05/20 Jan Mahmood MD 6 [facility] 2A [place] [address] Assigned Gastroenterology Provider 12/01/20 Dom Eason MD 717 [facility] 353 [place] [address] Internal Medicine 12/02/20 Jaimie Vernon, RN Specialty Video Machines Mechanic Cardiology 10/28/21 Marquise Hanley MD [address] [place] [address] Endocrinology, Diabetes, and Metabolism 03/05/22 Vlad Ramey MD [address] [place] [address] 84[address] Cardiovascular Disease 05/07/22 Joesph Crowe MD [address] [place] [address] 48048 Surgery 05/07/22 Michelle Padilla RN Specialty Video Machines Mechanic Cardiology 07/03/22 Marquise Hanley MD [address] [place] [address] Assigned Endocrinology Provider 08/15/22 Wagner Oliver MD [address] [place] [place], [place] 136605 Critical Care 12/15/22 Joesph Crowe MD [address] [place] [address] Surgery 03/17/23 Adonay Haq MD [address] [place] [address] Internal Medicine 06/14/23 Ruth Riddle DPM, Podiatry/Foot and Ankle Surgery [address] [place] [phone] Assigned Musculoskeletal Provider 10/22/23 Jignesh Mathias MD [address] [place] [address] 437875 Gastroenterology 09/25/24 Omar Carmona MD [address] [place] [address] 797535 Assigned PCP 12/29/24 Jason Alvares MD [address] [place] [address] Assigned Neuroscience Provider 12/29/24 Jignesh Mathias MD [address] [place] [address] 380625 Assigned Surgical Provider 12/29/24 Ayad Lopez, PhD LP [address] [place] [address] 804425 Assigned Behavioral Health Provider 02/28/25 Gavi Nieto PA-C [address] [place] [address] 493605 Physician Finance Advisor Dermatology 03/19/25 documented as of this encounter
--- OUTSIDE RECORDS SUMMARY | 2025-06-10 11:29 | XMS_ITS | Encounter Summary ---
Author Organization [facility] Address [address] [place] [address] 39626 Care Team Providers Care Spring Forger Name Role Phone Rio Jaquez MD Primary Care Provider Barry Kilpatrick MD Unavailable Michelle Henderson I RN Unavailable [phone] Rio Jaquez MD Unavailable +[phone] Jemima Jaramillo MD Unavailable Unavai Kelley Bautista RN Unavailable +[phone] Sydnee Saleem MD Unavailable +[phone] Karlene Moya MD Unavailable Wilbert Quintero OD Unavailable +[phone] Rod Gauthier DPM Unavailable Jan Mahmood MD Unavailable +[phone] Brandt Quintana MD Unavailable +[phone] Jan Mahmood MD Unavailable +[phone] Rio Jaquez MD Unavailable +[phone] Dom Eason MD Unavailable Jayla Plaza [...] Unavailable +[phone] Dom Eason MD Unavailable +[phone] Wagner Oliver MD Unavailable +[phone] Laura Epperson NP Unavailable +[phone] Thom Taveras MD Unavailable +[phone] Joesph Crowe MD Unavailable +[phone] Joesph Crowe MD Unavailable +[phone] Adonay Haq MD Unavailable +[phone] Denilson Srinivasan MD Unavailable + [phone] Jason Alvares MD Unavailable Ruth Riddle DPM, Podiatry /Foot and Ankle Surgery Unavailable Omar Carmona MD Primary Care Provider [phone] Jignesh Mathias MD Unavailable Adonay Haq MD Unavailable +[phone]- Omar Carmona MD Unavailable +[phone] Jason Alvares MD Unavailable Jignesh Mathias MD Unavailable Ayad Lopez PhD LP Unavailable +[phone] Gavi NietoC Unavailable +[phone] Encounter Details Date Type Department Care Team (Late st Contact Info) Description 12/28/2022 MyC Medical Advice [facility] Nephrology [facility] [address] [phone] Veronica Herr Social History Tobacco [...] than three times a week 08/27/2021 Attends Judaism Services Not on file 08/27 Do you [...] Answer Date Recorded PHQ-2 Score 2 10/21/2022 [facility]at ional [facility] [...] Sex Assigned at Female 09/12/2020 12:05 PM HUMID SYSTEM OPERATOR Legal Sex Female 3:26 AM HUMID SYSTEM OPERATOR Gender Identity Female 09/12/2020 12:05 PM HUMID SYSTEM OPERATOR Sexual Orientation Straight 12/19/2021 10 :44 [...] st Contact Info) Description 06/13/2025 6:00 PM HUMID SYSTEM OPERATOR Ancillary Procedure [facility] Imaging [facility] CT Clinic [address] [place] [phone] Omar Carmona MD [address] [place] [address] 545675 06/14/2025 4:00 PM HUMID SYSTEM OPERATOR Office Visit [address] [place] [phone] Omar Carmona MD [address] [place] [address] 286[address] 06/15/2025 12:45 PM HUMID SYSTEM OPERATOR Therapy Visit [facility] Rehabilitation Services [address] [phone] Jason Alvares MD [address] [place] [address] 295 [place], [place] 999175 Chaya Castillo OTR [facility] 150 [place] [address] 06/19/2025 10:30 AM HUMID SYSTEM OPERATOR Virtual Visit [facility] Primary Care [address] 4th [place] [phone] Omar Carmona MD [address] [place] [address] 983745 Gerson Santos, [facility] 06/26/2025 11:00 AM HUMID SYSTEM OPERATOR Therapy Visit [facility] 150 [place] [phone] Jason Alvares MD [address] [place] [address] 355725 Chaya Castillo, OTR [address] [address] 07/09/2025 12:45 PM HUMID SYSTEM OPERATOR Therapy Visit [address] [phone] Jason Alvares MD [address] [place] [address] 321135 Chaya Castillo, OTR [address] [address] 07/18/2025 3:00 PM HUMID SYSTEM OPERATOR Office Visit [facility] Heart Clinic [address] [phone] Adonay Chapman APRN [facility] 500 [place], [place] 492335 11/05/2025 12:30 PM CDT Lab [facility] Lab [address] [phone] 11/05/2025 1:45 PM CDT Office Visit [facility] Dermatology Clinic [address] [place] [phone] Gavi Nieto PA-C Dermatology [address] [place] [address] 11/20/2025 10:30 AM CDT Virtual Visit [address] [phone] Marquise Hanley MD 909 [place] [address] documented as of this encounter Goals Goal [...] documented as of this encounter Care Teams Spring Forger Relationship Specialty Start Date End Date Rio Jaquez MD 909 [facility] [address] 4 [place] [address] PCP - General Family Practice 12/02/10 07/13/24 Omar Carmona MD [address] [place] [address] PCP - General Family Medicine 07/14/24 Barry Kilpatrick MD 9 [facility] [id number] [place] [address] Neurology 07/19/14 Michelle Henderson I, RN Nurse Coordinator Neurology 07/19/14 Rio Jaquez MD [address] [place] [address] 4 [place], [place] 899275 Family Practice 10/15/14 Jemima Jaramillo MD register of deeds 11/20/14 Kelley Chin, TANIA [address] 289155 Nurse Coordinator Cardiology 11/04/15 Sydnee Saleem MD [address] [place] [address] 508 [place], [place] 054615 Cardiology 11/04/15 Karlene Moya MD [address] [place] [address] 205415 Ophthalmology 06/24/17 Wilbert Quintero, OD [address] [place] [address] 174895 Optometry 06/24/17 Rod Gauthier DPM [address] [place] [address] 294645 Cotton Stomper Primary Podiatric Medicine 06/21/18 Jan Mahmood MD [address] [place] [address] 2A [place], [place] 354325 Gastroenterology 11/05/20 Brandt Quintana MD [address] [place] [address] Resident 11/05/20 Jan Mahmood MD 516 [facility] 2A [place] [address] Assigned Gastroenterology Provider 12/01/20 Rio Jaquez MD [address] [place] [address] 021235 Assigned PCP 11/17/20 09/30/24 Dom Eason MD [address] [place] [address] 353 [place] [address] Internal Medicine 12/02/20 Jayla Plaza, RN Specialty Silk Crepe Machine Operator Hepatology 01/09/21 02/13/24 Jaimie Vernon, RN Specialty Silk Crepe Machine Operator Cardiology 10/28/21 Ruth Riddle DPM, Podiatry/Foot and Ankle Surgery [address] [address] Assigned Musculoskeletal Provider 11/30/21 09/30/23 Marquise Hanley MD [address] [place] [address] 75873 Endocrinology, Diabetes, and Metabolism 03/05/22 Vlad Ramey MD [address] [place] [address] 612115 Cardiovascular Disease 05/07/22 Joesph Crowe MD [address] [place] [address] 129915 Surgery 05/07/22 Luis Arrington MD [address] [place] [address] 54542 Assigned Neuroscience Provider 05/16/22 05/14/23 Michelle Padilla, TANIA Specialty Silk Crepe Machine Operator Cardiology 07/03/22 Vlad Ramey MD [address] [place] [address] 98663 Assigned Heart and Vascular Provider 07/25/22 05/28/23 Marquise Hanley MD [address] [place] [address] Assigned Endocrinology Provider 08/15/22 Dom Eason MD [address] [place] [address] Assigned Nephrology Provider 11/28/22 02/19/23 Wagner Oliver MD 64[address] [facility] [place] [address] Critical Care 12/15/22 Laura Epperson NP [address] [place] [address] 1932 [place] [address] Assigned Nephrology Provider 02/20/23 08/30/[address] [facility] [address] [place] [address] Assigned Cancer Care Provider 02/06/23 08/20/23 Joesph Crowe MD [address] [place] [address] 55976 Surgery 03/17/23 Joesph Crowe MD [address] [place] [address] 35759 Assigned Surgical Provider 04/03/23 09/30/24 Adonay Haq MD [address] [place] [address] Internal Medicine 06/14/23OctoberDenilson MD 6405 [facility] CLEO Black [facility] [address] [place] [address] Assigned Heart and Vascular Provider 05/29/23 11/28/24 Jason Alvares MD [address] [place] [address] 10805 Assigned Neuroscience Provider 05/15/23 11/28/24 Ruth Riddle DPM, Podiatry/Foot and Ankle Surgery [address] [place], [place] 698757 Assigned Musculoskeletal Provider 10/22/23 Jignesh Mathias MD [address] [place] [address]18 Gastroenterology 09/25/24 Adonay Haq MD [address] [place] [address]994 Assigned PCP 10/01/24 12/28/24 Omar Carmona MD [address] [place] [address] 028795 Assigned PCP 12/29/24 Jason Alvares MD [address] [place] [address] 475865 Assigned Neuroscience Provider 12/29/24 Jignesh Mathias MD [address] [place] [address] 396835 Assigned Surgical Provider 12/29/24 Ayad Lopez, PhD LP [address] [place] [address] 883835 Assigned Behavioral Health Provider 02/28/25 Gavi Nieto PANavinC [address] [place] [address] 018775 Physician International Freight Forwarder Dermatology 03/19/25 documented as of this encounter
--- OUTSIDE RECORDS SUMMARY | 2025-06-10 11:29 | XMS_ITS | Encounter Summary ---
Author Organization [facility] Address [address] [place] [address]49 Care Team Providers Care Medical Liaison Name Role Phone Barry Kilpatrick MD Unavailable Michelle Henderson RN Unavailable [phone] Rio Jaquez MD Unavailable +[phone] Jemima Jaramillo MD Unavailable Unavai Kelley Bautista RN Unavailable [phone] Sydnee Saleem MD Unavailable +[phone] Karlene Moya MD Unavailable +[phone] Wilbert Quintero OD Unavailable +[phone] Rod Gauthier DPM Unavailable +[phone] Jan Mahmood MD Unavailable +[phone] Brandt Quintana MD Unavailable [phone] Jan Mahmood MD Unavailable +[phone] Dom Eason MD Unavailable +[phone] Jaimie Vernon RN Unavailable Unavailable Marquise Hanley MD Unavailable +[phone] Vlad Ramey MD Unavailable +[phone] Joesph Crowe MD Unavailable Michelle Padilla RN Unavailable Unavaila ble Marquise Hanley MD Unavailable +[phone] Wagner Oliver MD Unavailable +[phone] Joesph Crowe MD Unavailable +[phone] Adonay Haq MD Unavailable [phone] Ruth Riddle DPM, Podiatry /Foot and Ankle Surgery Unavailable Omar Carmona MD Primary Care Provider [phone] Jignesh Mathias MD Unavailable Omar Carmona MD Unavailable +[phone] Jason Alvares MD Unavailable Jignesh Mathias MD Unavailable Ayad Lopez PhD LP Unavailable +[phone] Gavi Nieto PA-C Unavailable +[phone] Encounter Details Date Type Department Care Team (Late st Contact Info) Description 05/03/[address] [facility] Internal Medicine [address] [phone] Andrews Dixon, EMT Social History [...] Answer Date Recorded PHQ-2 Score 2 05/03/2025 [facility] - Occupational Stress [...] Sex Assigned at Female 09/12/2020 12:05 PM HOME CARE NURSE Legal Sex Female 3:26 AM HOME CARE NURSE Gender Identity Female 09/12/2020 12:05 PM HOME CARE NURSE Sexual Orientation Straight 12/19/2021 10 :44 AM CDT Occupation Industry Job Start Date Job End Date on disability for FMS Not on file Not on file Not on file disabled Not on file Not on file Not on file documented as of this encounter Plan of Treatment Upcoming Encounters Date Type Department Care Team (Late st Contact Info) Description 06/13/2025 6:00 PM HOME CARE NURSE Ancillary Procedure [facility] Imaging Center CT Clinic [address] [phone] Omar Carmona MD [address] [place] [address] 544295 06/14/2025 4:00 PM HOME CARE NURSE Office Visit [facility] Primary Care [address] [phone] Omar Carmona MD [address] [place] [address] 57613455 06/15/2025 12:45 PM HOME CARE NURSE Therapy Visit [facility] Rehabilitation Services [address] [phone] Jason Alvares MD [address] [place] [address] 295 [place], [place] 426345 Chaya Castillo OTR [address] [address] 06/19/2025 10:30 AM HOME CARE NURSE Virtual Visit [facility] Primary Care [address] [phone] Omar Carmona MD [address] [place] [address] Gerson Santos, [facility] 06/26/2025 11:00 AM HOME CARE NURSE Therapy Visit [facility] 150 [place] [phone] Jason Alvares MD [address] [place] [address] 101605 Chaya Castillo, OTR [facility] 150 [place] [address] 07/09/2025 12:45 PM HOME CARE NURSE Therapy Visit [facility] 150 [place] [phone] Jason Alvares MD [address] [place] [address] 144615 Chaya Castillo, OTR [facility] 150 [place] [address] 07/18/2025 3:00 PM HOME CARE NURSE Office Visit [facility] Heart Clinic [address] [phone] Adonay Chapman APRN [address] 906385 11/05/2025 12:30 PM CDT Lab [facility] Lab [address] [place] [phone] 11/05/2025 1:45 PM CDT Office Visit [facility] Dermatology Clinic [address] 3rd [place] [phone] Gavi Nieto PA-C Dermatology [address] [place] [address] 11/20/2025 10:30 AM CDT Virtual Visit [address] [phone] Marquise Hanley MD [address] [place] [address] documented as of this encounter Goals Goal [...] as of this encounter Care Teams Medical Liaison Relationship Specialty Start Date End Date Omar Carmona MD [address] [place] [address] 9[address]64 PCP - General Family Medicine 07/14/24 Barry Kilpatrick MD [address] [place] [address] [id number] [place] [address] Neurology 07/19/14 Michelle Henderson I, RN Nurse Coordinator Neurology 07/19/14 Rio Jaquez MD [address] [place] [address]49 Family Practice 10/15/14 Jemima Jaramillo MD [address] [place] [address] 09237 machine setter and repairer 4/14/15 Kelley Chin RN [facility] 909 [place] [address] Nurse Coordinator Cardiology 11/04/15 Sydnee Saleem MD 420 [facility] 508 [place] [address] Cardiology 11/04/15 Karlene Moya MD [address] [place] [address] Ophthalmology 06/24/17 Wilbert Quintero OD [address] [place] [address] 62571 Optometry 06/24/17 Rod Gauthier DPM [address] [place] [address] 21495 Wet Process Operator Primary Podiatric Medicine 06/21/18 Jan Mahmood MD [address] [place] [address]341 Gastroenterology 11/05/20 Brandt Quintana MD [address] [place] [address] Resident 11/05/20 Jan Mahmood MD [address] [place] [address] 08222 Assigned Gastroenterology Provider 12/01/20 Dom Eason MD [address] [place] [address] 76188 Internal Medicine 12/02/20 Jaimie Vernon, RN Specialty C++ Professor Cardiology 10/28/21 Marquise Hanley MD [address] [place] [address] 22969 MD Endocrinology, Diabetes, and Metabolism 03/05/22 Vlad Ramey MD [address] [place] [address] 12324 Cardiovascular Disease 05/07/22 Joesph Crowe MD [address] [place] [address] 92713 Surgery 05/07/22 Michelle Padilla RN Specialty C++ Professor Cardiology 07/03/22 Marquise Hanley MD [address] [place] [address] 36744 Assigned Endocrinology Provider 08/15/22 Wagner Oliver MD [address] [place] [address] Critical Care 12/15/22 Joesph Crowe MD [address] [place] [address] 19114 Surgery 03/17/23 Adonay Haq MD [address] [place] [address] 81451 Internal Medicine 06/14/23 Ruth Riddle DPM, Podiatry/Foot and Ankle Surgery [address] RODRIGUEZ [address] [place] [address]18 Assigned Musculoskeletal Provider 10/22/23 Jignesh Mathias MD [address] [place] [address] 51917 Gastroenterology 09/25/24 Omar Carmona MD [address] [place] [address] 86219 Assigned PCP 12/29/24 Jason Alvares MD [address] [place] [address] 14673 Assigned Neuroscience Provider 12/29/24 Jignesh Mathias MD [address] [place] [address] 85155 Assigned Surgical Provider 12/29/24 Ayad Lopez, PhD LP [address] [place] [address] 028715 Assigned Behavioral Health Provider 02/28/25 Gavi Nieto, PA-C [address] [place] [address] 090295 Physician Manager Transit Dermatology 03/19/25 documented as of this encounter
--- OUTSIDE RECORDS SUMMARY | 2025-06-10 11:29 | XMS_ITS | Encounter Summary ---
Author Organization [facility] Address [address] [place] [address] 58976 Care Team Providers Care Stain Remover Name Role Phone Barry Kilpatrick MD Unavailable Michelle Henderson RN Unavailable Rio Jaquez MD Unavailable [phone] Jemima Jaramillo MD Unavailable Unavai Kelley Bautista RN Unavailable [phone] Sydnee Saleem MD Unavailable +[phone] Karlene Moya MD Unavailable +[phone] Wilbert Quintero OD Unavailable +[phone] Rod Gauthier DPM Unavailable [phone] Jan Mahmood MD Unavailable +[phone] Brandt Quintana MD Unavailable Jan Mahmood MD Unavailable +[phone] Dom Eason MD Unavailable +[phone] Jaimie Vernon RN Unavailable Unavailable Marquise Hanley MD Unavailable +[phone] Vlad Ramey MD Unavailable +[phone] Joesph Crowe MD Unavailable Michelle Padilla RN Unavailable Unavaila ble Marquise Hanley MD Unavailable +[phone] Wagner Oliver MD Unavailable + [phone] Joesph Crowe MD Unavailable +[phone] Adonay Haq MD Unavailable [phone] Ruth RiddleM, Podiatry /Foot and Ankle Surgery Unavailable Omar Carmona MD Primary Care Provider [phone] Jignesh Mathias MD Unavailable Omar Carmona MD Unavailable +[phone] Jason Alvares MD Unavailable Jignesh Mathias MD Unavailable Ayad Lopez PhD LP Unavailable +[phone] Gavi Nieto PA-C Unavailable +[phone] Encounter Details Date Type Department Care Team [...] Date Recorded PHQ-2 Score 2 04/11/2025 [facility] [place] of Occupat ional Health - Occupational Stress [...] Assigned at Female 09/12/2020 12:05 PM SENIOR LOAN PROCESSOR Legal Sex Female 3:26 AM SENIOR LOAN PROCESSOR Gender Identity Female 09/12/2020 12:05 PM SENIOR LOAN PROCESSOR Sexual Orientation Straight 12/19/2021 10 :44 [...] Contact Info) Description 06/13/2025 6:00 PM SENIOR LOAN PROCESSOR Ancillary Procedure [facility] Imaging Center CT Clinic [address] [phone] Omar Carmona MD [address] [place] [address] [phone] 06/14/2025 4:00 PM SENIOR LOAN PROCESSOR Office Visit [facility] Primary Care Clinic [address] [phone] Omar Carmona MD [address] [place] [address] [id number] 06/15/2025 12:45 PM SENIOR LOAN PROCESSOR Therapy Visit [facility] Rehabilitation Services [address] [phone] Jason Alvares MD 420 [facility] 295 [place], [place] [phone] Chaya Castillo, OTR [facility] 150 [place] [address] 06/19/2025 10:30 AM SENIOR LOAN PROCESSOR Virtual Visit [facility] Primary Care [address] [phone] Omar Carmona MD [address] [place] [address] 702545 Gerson Santos RPH 06/26/2025 11:00 AM SENIOR LOAN PROCESSOR Therapy Visit [facility] 150 [place] [address] Jason Alvares MD [address] [place] [address] Chaya Castillo OTR [facility] 150 [place] [address] 07/09/2025 12:45 PM SENIOR LOAN PROCESSOR Therapy Visit [facility] 150 [place] [phone] Jason Alvares MD [address] [place] [address] Chaya Castillo OTR [facility] 150 [place] [address] 07/18/2025 3:00 PM SENIOR LOAN PROCESSOR Office Visit [facility] Heart [address] [phone] Adonay Chapman APRN [address] [address] 11/05/2025 12:30 PM CDT Lab [facility] Lab [address] [phone] 11/05/2025 1:45 PM CDT Office Visit [facility] Dermatology Clinic [address] 3rd [place] [phone] Gavi Nieto PA-C Dermatology [address] [place] [address] 16262 11/20/2025 10:30 AM CDT Virtual Visit [address] [address] Marquise Hanley MD [address] [place] [address] 106355 documented as of this encounter Goals Goal [...] documented as of this encounter Care Teams Stain Remover Relationship Specialty Start Date End Date Omar Carmona MD [address] [place] [address] 31871 PCP - General Family Medicine 07/14/24 Barry Kilpatrick MD [address] [place] [address] OF2220VR [place] [address] Neurology 07/19/14 Michelle Henderson RN Nurse Coordinator Neurology 07/19/14 Rio Jaquez MD [address] [place] [address] 95651 Family Practice 10/15/14 Jemima Jaramillo MD [address] [place] [address] 73574 c unix developer 11/20/14 Kelley Chin, TANIA [address] [address] Nurse Coordinator Cardiology 11/04/15 Sydnee Saleem MD 420 [facility] 508 [place], [place] 703885 Cardiology 11/04/15 Karlene Moya MD 6 [place], [place] 507005 Ophthalmology 06/24/17 Wilbert Quintero OD 909 [place], [place] 079805 Optometry 06/24/17 Rod Gauthier DPM 909 [place], [place] 815495 Supervisor Loading Primary Podiatric Medicine 06/21/18 Jan Mahmood MD [address] [place] [address] 91456 Gastroenterology 11/05/20 Brandt Quintana MD [address] [place] [address] 33727 Resident 11/05/20 Jan Mahmood MD 6 [facility] 2A [place] [address] Assigned Gastroenterology Provider 12/01/20 Dom Eason MD 717 [facility] 353 [place] [address] Internal Medicine 12/02/20 Jaimie Vernon, RN Specialty Bindery Cutter Operator Cardiology 10/28/21 Marquise Hanley MD [address] [place] [address] 63491 Endocrinology, Diabetes, and Metabolism 03/05/22 Vlad Ramey MD [address] [place] [address] 22357 Cardiovascular Disease 05/07/22 Joesph Crowe MD [address] [place] [address] 94643 Surgery 05/07/22 Michelle Padilla RN Specialty Bindery Cutter Operator Cardiology 07/03/22 Marquise Hanley MD [address] [place] [address] 07472 Assigned Endocrinology Provider 08/15/22 Wagner Oliver MD [address] [place], [place] 219445 Critical Care 12/15/22 Joesph Crowe MD [address] [place] [address] 29488 Surgery 03/17/23 Adonay Haq MD [address] [place] [address] 99512 Internal Medicine 06/14/23 Ruth Riddle DPM, Podiatry/Foot and Ankle Surgery [address] [place] 406927 Assigned Musculoskeletal Provider 10/22/23 Jignesh Mathias MD [address] [place] [address] 630445 Gastroenterology 09/25/24 Omar Carmona MD [address] [place] [address] 652885 Assigned PCP 12/29/24 Jason Alvares MD [address] [place] [address] 55455 Assigned Neuroscience Provider 12/29/24 Jignesh Mathias MD [address] [place] [address] 797995 Assigned Surgical Provider 12/29/24 Ayad Lopez, PhD LP [address] [place] [address] 081085 Assigned Behavioral Health Provider 02/28/25 Gavi Nieto PA-C [address] [place] [address] 019395 Physician Member [employer] Dermatology 03/19/25 documented as of this encounter
--- OUTSIDE RECORDS SUMMARY | 2025-06-10 11:29 | XMS_ITS | Encounter Summary ---
Author Organization [place] Address [address] [place] [address] Care Team Providers Care Gasoline Truck Operator Name Role Phone Rio Jaquez MD Primary Care Provider Barry Kilpatrick MD Unavailable Michelle Henderson I RN Unavailable [phone] Rio Jaquez MD Unavailable +[phone] Jemima Jaramillo MD Unavailable Unavai Kelley Bautista RN Unavailable +[phone] Sydnee Saleem MD Unavailable +[phone] Karlene Moya MD Unavailable +[phone] Wilbert Quintero OD Unavailable +[phone] Rod Gauthier DPM Unavailable Jan Mahmood MD Unavailable +[phone] Brandt Quintana MD Unavailable Jan Mahmood MD Unavailable +[phone] Rio Jaquez MD Unavailable +[phone] Dom Eason MD Unavailable Jayla Plaza [...] Unavailable +[phone] Dom Eason MD Unavailable +[phone] Wagner Oliver MD Unavailable +[phone] Laura Epperson NP Unavailable +[phone] Thom Taveras MD Unavailable +[phone] Joesph Crowe MD Unavailable +[phone] Joesph Crowe MD Unavailable +[phone] Adonay Haq MD Unavailable +[phone] Denilson Srinivasan MD Unavailable + [phone] Jason Alvares MD Unavailable Ruth Riddle DPM, Podiatry /Foot and Ankle Surgery Unavailable Omar Carmona MD Primary Care Provider [phone] Jignesh Mathias MD Unavailable Adonay Haq MD Unavailable +1- Omar Carmona MD Unavailable +[phone] Jason Alvares MD Unavailable Jignesh Mathias MD Unavailable Ayad Lopez PhD LP Unavailable +[phone] Gavi NietoC Unavailable +[phone] Encounter Details Date Type Department Care Team (Late st Contact Info) Description 12/16/2022 MyC Medical Advice [address] [phone] Michelle Padilla RN Social History [...] Answer Date Recorded PHQ-2 Score 2 10/21/2022 [facility] of Occupat ional [...] place to sleep or slept in a mcc (including now)? No 08/27/2021 Comments No Sex and Gender Information Value Date Recorded Sex Assigned at Female 09/12/2020 12:05 PM COMPRESSOR SERVICE TECHNICIAN Legal Sex Female 3:26 AM COMPRESSOR SERVICE TECHNICIAN Gender Identity Female 09/12/2020 12:05 PM COMPRESSOR SERVICE TECHNICIAN Sexual Orientation Straight 12/19/2021 10 :44 [...] st Contact Info) Description 06/13/2025 6:00 PM COMPRESSOR SERVICE TECHNICIAN Ancillary Procedure [facility] Imaging Center [facility] Clinic [address] [phone] Omar Carmona MD [address] [place] [address] 743125 06/14/2025 4:00 PM COMPRESSOR SERVICE TECHNICIAN Office Visit [facility] Care [address] [phone] Omar Carmona MD [address] [place] [address] 06/15/2025 12:45 PM COMPRESSOR SERVICE TECHNICIAN Therapy Visit [facility] Rehabilitation Services [facility] [address] [place] [phone] Jason Alvares MD [address] [place] [address] [address] [place], [place] [phone] Chaya Castillo OTR [facility] [address] [place] [address] 06/19/2025 10:30 AM COMPRESSOR SERVICE TECHNICIAN Virtual Visit [facility] Primary [address] [place] [phone] Omar Carmona MD [address] [place] [address] 332805 Gerson Santos, MORENO 06/26/2025 11:00 AM COMPRESSOR SERVICE TECHNICIAN Therapy Visit [facility] [address] [place] [phone] Jason Alvares MD [address] [place] [address] 233865 Chaya Castillo, OTR [address] [address] 07/09/2025 12:45 PM COMPRESSOR SERVICE TECHNICIAN Therapy Visit [facility] [address] [place] [phone] Jason Alvares MD [address] [place] [address] 597925 Chaya Castillo, OTR [address] [address] 07/18/2025 3:00 PM COMPRESSOR SERVICE TECHNICIAN Office Visit [facility] Heart Clinic [address] [phone] Adonay Chapman APRN [address] [id number] 11/05/2025 12:30 PM CDT Lab [facility] Lab [address] [place] [phone] 11/05/2025 1:45 PM CDT Office Visit [facility] Dermatology Clinic [address] [place] [phone] Gavi Nieto PA-C Dermatology [address] [place] [address] 11/20/2025 10:30 AM CDT Virtual Visit [address] [address] Marquise Hanley MD [address] [place] [address] documented as of this encounter Goals Goal [...] documented as of this encounter Care Teams Gasoline Truck Operator Relationship Specialty Start Date End Date Rio Jaquez MD 9 [facility] [place] [address] [place] [address] PCP - General Family Practice 12/02/10 07/13/24 Omar Carmona MD [address] [place] [address] PCP - General Family Medicine 07/14/24 Barry Kilpatrick MD [address] [place] [address] [id number] [place] [address] Neurology 07/19/14 Michelle Henderson I, RN Nurse Coordinator Neurology 07/19/14 Rio Jaquez MD [address] [place] [address] 4 [place], [place] 219025 Family Practice 10/15/14 Jemima Jaramillo MD batch plant supervisor 11/20/14 Kelley Chin, TANIA [address] 262525 Nurse Coordinator Cardiology 11/04/15 Sydnee Saleem MD [address] [place] [address] [address] [place], [place] 274645 Cardiology 11/04/15 Karlene Moya MD [address] [place] [address] 112295 Ophthalmology 06/24/17 Wilbert Quintero, OD [address] [place] [address] 633795 Optometry 06/24/17 Rod Gauthier DPM [address] [place] [address] 810745 Rope Coiling Machine Operator Primary Podiatric Medicine 06/21/18 Jan Mahmood MD [address] [place] [address] 548625 Gastroenterology 11/05/20 Brandt Quintana MD [address] [place] [address] Resident 11/05/20 Jan Mahmood MD [address] [facility] [address] [place] [address] Assigned Gastroenterology Provider 12/01/20 Rio Jaquez MD [address] [place] [address] [phone] Assigned PCP 11/17/20 09/30/24 Dom Eason MD [address] [place] [address] Internal Medicine 12/02/20 Jayla Plaza, RN Specialty Logistics Analyst Hepatology 01/09/21 02/13/24 Jaimie Vernon, RN Specialty Logistics Analyst Cardiology 10/28/21 Ruth Riddle DPM, Podiatry/Foot and Ankle Surgery [address] [address] Assigned Musculoskeletal Provider 11/30/21 09/30/23 Marquise Hanley MD [address] [place] [address] 22428 Endocrinology, Diabetes, and Metabolism 03/05/22 Vlad Ramey MD [address] [place] [address] 559365 Cardiovascular Disease 05/07/22 Joesph Crowe MD [address] [place] [address] [phone] Surgery 05/07/22 Luis Arrington MD [address] [place] [address] 66963 Assigned Neuroscience Provider 05/16/22 05/14/23 Michelle Padilla, RN Specialty Logistics Analyst Cardiology 07/03/22 Vlad Ramey MD [address] [place] [address] 15007 Assigned Heart and Vascular Provider 07/25/22 05/28/23 Marquise Hanley MD [address] [place] [address] 87185 Assigned Endocrinology Provider 08/15/22 Dom Eason MD [address] [place] [address] 353 [place] [address] Assigned Nephrology Provider 11/28/22 02/19/23 Wagner Oliver MD [address] [place] [address] Critical Care 12/15/22 Laura Epperson NP [address] [place] [address] 1932 [place] [address] Assigned Nephrology Provider 02/20/23 08/30/24 Thom Taveras MD [facility] [address] [place] [address] Assigned Cancer Care Provider 02/06/23 08/20/23 Joesph Crowe MD [address] [place] [address] 27972 Surgery 03/17/23 Joesph Crowe MD [address] [place] [address] 42209 Assigned Surgical Provider 04/03/23 09/30/24 Adonay Haq MD [address] [place] [address] 03726 Internal Medicine 06/14/23OctoberDenilson MD [address] [facility] [place] Black [facility] [address] [place] [address] Assigned Heart and Vascular Provider 05/29/23 11/28/24 Jason Alvares MD [address] [place] [address] 295 [place] [address] Assigned Neuroscience Provider 05/15/23 11/28/24 Ruth Riddle DPM, Podiatry/Foot and Ankle Surgery [address] [facility] 300 [place], [place] 386837 Assigned Musculoskeletal Provider 10/22/23 Jignesh Mathias MD [address] [place] [address] Gastroenterology 09/25/24 Adonay Haq MD [address] [place] [address] 79278 Assigned PCP 10/01/24 12/28/24 Omar Carmona MD [address] [place] [address] 620285 Assigned PCP 12/29/24 Jason Alvares MD [address] [place] [address] 483035 Assigned Neuroscience Provider 12/29/24 Jignesh Mathias MD [address] [place] [address] 012145 Assigned Surgical Provider 12/29/24 Ayad Lopez, PhD LP [address] [place] [address] 130105 Assigned Behavioral Health Provider 02/28/25 Gavi Nieto PANavinC [address] [place] [address] 423485 Physician Prevention Coordinator Dermatology 03/19/25 documented as of this encounter
--- OUTSIDE RECORDS SUMMARY | 2025-06-10 11:29 | XMS_ITS | Encounter Summary ---
Author Organization [facility] Address [address] [place] [address] Care Team Providers Care Machine Stripper Cutter Name Role Phone Barry Kilpatrick MD Unavailable Michelle Henderson RN Unavailable [phone] Rio Jaquez MD Unavailable [phone] Jemima Jaramillo MD Unavailable Unavai Kelley Bautista RN Unavailable +[phone] Sydnee Saleem MD Unavailable [phone] Karlene Moya MD Unavailable [phone] Wilbert Quintero OD Unavailable +[phone] Rod Gauthier DPM Unavailable [phone] Jan Mahmood MD Unavailable +[phone] Brandt Quintana MD Unavailable [phone] Jan Mahmood MD Unavailable +[phone] Dom Eason MD Unavailable +[phone] Jaimie Vernon RN Unavailable Unavailable Marquise Hanley MD Unavailable +[phone] Vlad Ramey MD Unavailable +[phone] Joesph Crowe MD Unavailable [phone] Michelle Padilla RN Unavailable Unavaila ble Marquise Hanley MD Unavailable +[phone] Wagner Oliver MD Unavailable [phone] Joesph Crowe MD Unavailable +[phone] Adonay Haq MD Unavailable [phone] Ruth Riddle DPM, Podiatry /Foot and Ankle Surgery Unavailable Omar Carmona MD Primary Care Provider [phone] Jignesh Mathias MD Unavailable Omar Carmona MD Unavailable +[phone] Jason Alvares MD Unavailable Jignesh Mathias MD Unavailable Ayad Lopez PhD LP Unavailable +[phone] Gavi Nieto PA-C Unavailable [phone] Encounter Details Date Type Department Care Team (Late st Contact Info) Description 05/03/2025 MyC Medical Advice [facility] Internal Medicine [address] [address] Andrews Dixon, EMT Social History [...] Answer Date Recorded PHQ-2 Score 2 05/03/2025 [facility] [place] of Occupat ional Health - Occupational Stress [...] Sex Assigned at Female 09/12/2020 12:05 PM COMPUTERIZED TABLE CUTTER Legal Sex Female 3:26 AM COMPUTERIZED TABLE CUTTER Gender Identity Female 09/12/2020 12:05 PM COMPUTERIZED TABLE CUTTER Sexual Orientation Straight 12/19/2021 10 :44 AM CDT Occupation Industry Job Start Date Job End Date on disability for FMS Not on file Not on file Not on file disabled Not on file Not on file Not on file documented as of this encounter Plan of Treatment Upcoming Encounters Date Type Department Care Team (Late st Contact Info) Description 06/13/2025 6:00 PM COMPUTERIZED TABLE CUTTER Ancillary Procedure [facility] Imaging Center CT Clinic [address] [phone] Omar Carmona MD [address] [place] [address] 969085 06/14/2025 4:00 PM COMPUTERIZED TABLE CUTTER Office Visit [facility] Primary Care [address] [phone] Omar Carmona MD [address] [place] [address] [phone] 06/15/2025 12:45 PM COMPUTERIZED TABLE CUTTER Therapy Visit [facility] Rehabilitation Services [address] [phone] Jason Alvares MD [address] [place] [address] 295 [place], [place] 935[address] Chaya Castillo OTR [address] [address] 06/19/2025 10:30 AM COMPUTERIZED TABLE CUTTER Virtual Visit [facility] Primary Care [address] [phone] Omar Carmona MD [address] [place] [address] Gerson Santos, [facility] 06/26/2025 11:00 AM COMPUTERIZED TABLE CUTTER Therapy Visit [facility] [address] [place] [phone] Jason Alvares MD [address] [place] [address] 821545 Chaya Castillo, OTR [facility] 150 [place] [address] 07/09/2025 12:45 PM COMPUTERIZED TABLE CUTTER Therapy Visit [facility] 150 [place] [phone] Jason Alvares MD [address] [place] [address] 747845 Chaya Castillo, OTR [facility] 150 [place] [address] 07/18/2025 3:00 PM COMPUTERIZED TABLE CUTTER Office Visit [facility] Heart Clinic [address] [phone] Adonay Chapman APRN [address] 469535 11/05/2025 12:30 PM CDT Lab [facility] Lab [address] [place] [phone] 11/05/2025 1:45 PM CDT Office Visit [facility] Dermatology Clinic [address] [place] [phone] Gavi Nieto PA-C Dermatology [address] [place] [address] 11/20/2025 10:30 AM CDT Virtual Visit [address] [phone] Marquise Hanley MD [address] [place] [address] documented as of this encounter Goals Goal [...] as of this encounter Care Teams Machine Stripper Cutter Relationship Specialty Start Date End Date Omar Carmona MD [address] [place] [address] PCP - General Family Medicine 07/14/24 Barry Kilpatrick MD [address] [place] [address] [id number] [place] [address] Neurology 07/19/14 Michelle Henderson I, RN Nurse Coordinator Neurology 07/19/14 Rio Jaquez MD [address] [place] [address]85 Family Practice 10/15/14 Jemima Jaramillo MD [address] [place] [address] 51891 bag bundler 4/14/15 Kelley Chin RN [facility] 909 [place] [address] Nurse Coordinator Cardiology 11/04/15 Sydnee Saleem MD [address] [facility] 508 [place] [address] Cardiology 11/04/15 Karlene Moya MD [address] [place] [address] 61675 Ophthalmology 06/24/17 Wilbert Quintero OD [address] [place] [address] Optometry 06/24/17 Rod Gauthier DPM [address] [place] [address] 68876 Hearing Aid Mechanic Primary Podiatric Medicine 06/21/18 Jan Mahmood MD [address] [place] [address] Gastroenterology 11/05/20 Brandt Quintana MD [address] [place] [address] Resident 11/05/20 Jan Mahmood MD [address] [place] [address] Assigned Gastroenterology Provider 12/01/20 Dom Eason MD [address] [place] [address] 9[address]41 Internal Medicine 12/02/20 Jaimie Vernon, RN Specialty Addictions Counselor Assistant Cardiology 10/28/21 Marquise Hanley MD [address] [place] [address] MD Endocrinology, Diabetes, and Metabolism 03/05/22 Vlad Ramey MD [address] [place] [address] 96620 Cardiovascular Disease 05/07/22 Joesph Crowe MD [address] [place] [address] 6[address]99 Surgery 05/07/22 Michelle Padilla RN Specialty Addictions Counselor Assistant Cardiology 07/03/22 Marquise Hanley MD [address] [place] [address] 34589 Assigned Endocrinology Provider 08/15/22 Wagner Oliver MD [address] [place] [address] Critical Care 12/15/22 Joesph Crowe MD [address] [place] [address] 67968 Surgery 03/17/23 Adonay Haq MD [address] [place] [address] 49757 Internal Medicine 06/14/23 Ruth Riddle DPM, Podiatry/Foot and Ankle Surgery [address] [place] [address] [place] [address] Assigned Musculoskeletal Provider 10/22/23 Jignesh Mathias MD [address] [place] [address] 86948 Gastroenterology 09/25/24 Omar Carmona MD [address] [place] [address] 15872 Assigned PCP 12/29/24 Jason Alvares MD [address] [place] [address] Assigned Neuroscience Provider 12/29/24 Jignesh Mathias MD [address] [place] [address] 57808 Assigned Surgical Provider 12/29/24 Ayad Lopez, PhD LP [address] [place] [address] 925895 Assigned Behavioral Health Provider 02/28/25 Gavi Nieto, PA-C [address] [place] [address] 227345 Physician Manager Insurance Dermatology 03/19/25 documented as of this encounter
--- OUTSIDE RECORDS SUMMARY | 2025-06-10 11:29 | XMS_ITS | Encounter Summary ---
Author Organization [facility] Address [address] [place] [address] 35[address] Care Team Providers Care Laborer Cutting Tool Name Role Phone Rio Jaquez MD Primary Care Provider Barry Kilpatrick MD Unavailable Michelle Henderson I RN Unavailable [phone] Rio Jaquez MD Unavailable +[phone] Jemima Jaramillo MD Unavailable Unavai Kelley Bautista RN Unavailable [phone] Sydnee Saleem MD Unavailable +[phone] Karlene Moya MD Unavailable Wilbert Quintero OD Unavailable +[phone] Rod Gauthier DPM Unavailable Jan Mahmood MD Unavailable +[phone] Brandt Quintana MD Unavailable +[phone] Jan Mahmood MD Unavailable +[phone] Rio Jaquez MD Unavailable +[phone] Dom Eason MD Unavailable Jayla Plaza RN [...] Unavailable +[phone] Dom Eason MD Unavailable +[phone] Wagner Oliver MD Unavailable +[phone] Laura Epperson NP Unavailable +[phone] Thom Taveras MD Unavailable +[phone] Joesph Crowe MD Unavailable +[phone] Joesph Crowe MD Unavailable +[phone] Adonay Haq MD Unavailable +[phone] Denilson Srinivasan MD Unavailable + [phone] Jason Alvares MD Unavailable Ruth Riddle DPM, Podiatry /Foot and Ankle Surgery Unavailable Omar Carmona MD Primary Care Provider [phone] Jignesh Mathias MD Unavailable Adonay Haq MD Unavailable +1- Omar Carmona MD Unavailable +[phone] Jason Alvares MD Unavailable Jignesh Mathias MD Unavailable Ayad Lopez PhD LP Unavailable +[phone] Gavi NietoC Unavailable [phone] Encounter Details Date Type Department Care Team (Late st Contact Info) Description 11/30/2022 MyC Medical Advice [facility] [address] [address] Jaimie Vernon RN Social History [...] any clubs o r organizations such as jew groups, unions, fraternal or athletic groups, or [...] Date Recorded PHQ-2 Score 2 10/21/2022 [facility] of Occupat ional [...] Assigned at Female 09/12/2020 12:05 PM FRUIT CUTTER Legal Sex Female 3:26 AM FRUIT CUTTER Gender Identity Female 09/12/2020 12:05 PM FRUIT CUTTER Sexual Orientation Straight 12/19/2021 10 :44 AM CDT Occupation Industry Job Start Date Job End Date on disability for FMS Not on file Not on file Not on file disabled Not on file Not on file Not on file documented as of this encounter Plan of Treatment Upcoming Encounters Date Type Department Care Team (Late st Contact Info) Description 06/13/2025 6:00 PM FRUIT CUTTER Ancillary Procedure [facility] [address] [phone] Omar Carmona MD [address] [place] [address] 893035 06/14/2025 4:00 PM FRUIT CUTTER Office Visit [facility] [address] [phone] Omar Carmona MD [address] [place] [address] [phone] 06/15/2025 12:45 PM FRUIT CUTTER Therapy Visit [facility] [address] [phone] Jason Alvares MD [address] [place] [address] 295 [place], [place] 999455 Chaya Castillo, OTR [facility] 150 [place] [address] 06/19/2025 10:30 AM FRUIT CUTTER Virtual Visit [facility] [address] [phone] Omar Carmona MD [address] [place] [address] [phone] Gerson Santos, MORENO 06/26/2025 11:00 AM FRUIT CUTTER Therapy Visit [facility] 150 [place] [phone] Jason Alvares MD [address] [place] [address] [phone] [facility] [address] [place] [address] 07/09/2025 12:45 PM FRUIT CUTTER Therapy Visit [address] [phone] Jason Alvares MD [address] [place] [address] Chaya Castillo, OTR [facility] [address] [address] 07/18/2025 3:00 PM FRUIT CUTTER Office Visit [facility] [address] [phone] Adonay Chapman APRN [address] 874925 11/05/2025 12:30 PM CDT Lab [facility] [address] [place] [phone] 11/05/2025 1:45 PM CDT Office Visit [facility] [address] [place] [phone] Gavi Nieto PA-C Dermatology [address] [place] [address] [phone] 11/20/2025 10:30 AM CDT Virtual Visit [address] [address] Marquise Hanley MD 9 [place] [address] documented as of this encounter Goals Goal [...] as of this encounter Care Teams Laborer Cutting Tool Relationship Specialty Start Date End Date Rio Jaquez MD [address] [place] [address] 4 [place] [address] PCP - General Family Practice 12/02/10 07/13/24 Omar Carmona MD [address] [place] [address]914 PCP - General Family Medicine 07/14/24 Barry Kilpatrick MD [address] [place] [address] RR2068RE [place] [address] Neurology 07/19/14 Michelle Henderson I RN Nurse Coordinator Neurology 07/19/14 Rio Jaquez MD 909 [facility] [place] 4 [place] [address] Family Practice 10/15/14 Jemima Jaramillo MD transfer table operator 11/20/14 Kelley Chin, TANIA [facility] 909 [place], [place] 409175 Nurse Coordinator Cardiology 11/04/15 Sydnee Saleem MD 420 [facility] 508 [place], [place] 563605 Cardiology 11/04/15 Karlene Moya MD [address] [place] [address] 750465 Ophthalmology 06/24/17 Wilbert Quintero OD [address] [place] [address] 216225 Optometry 06/24/17 Rod Gauthier DPM [address] [place] [address] 145535 Director Of Individual Giving Primary Podiatric Medicine 06/21/18 Jan Mahmood MD [address] [place] [address] 2[address] [place] [address] Gastroenterology 11/05/20 Brandt Quintana MD [address] [place] [address] Resident 11/05/20 Jan Mahmood MD [address] [place] [address] 2[address] [place] [address] Assigned Gastroenterology Provider 12/01/20 Rio Jaquez MD [address] [place] [address] 4 [place] [address] Assigned PCP 11/17/20 09/30/24 Dom Eason MD [address] [place] [address] 353 [place] [address] Internal Medicine 12/02/20 Jayla Plaza, RN Specialty Form Layer Hepatology 01/09/21 02/13/24 Jaimie Vernon, TANIA Specialty Form Layer Cardiology 10/28/21 uRth Riddle DPM, Podiatry/Foot and Ankle Surgery 893[address] [facility] [address] [place] [address] Assigned Musculoskeletal Provider 11/30/21 09/30/23 Marquise Hanley MD [address] [place] [address] 33554 Endocrinology, Diabetes, and Metabolism 03/05/22 Vlad Ramey MD [address] [place] [address] 98469 Cardiovascular Disease 05/07/22 Joesph Crowe MD [address] [place] [address] 38087 Surgery 05/07/22 Luis Arrington MD [address] [place] [address] 34691 Assigned Neuroscience Provider 05/16/22 05/14/23 Michelle Padilla, RN Specialty Form Layer Cardiology 07/03/22 Vlad Ramey MD 909 [place] [address] Assigned Heart and Vascular Provider 07/25/22 05/28/23 Marquise Hanley MD [address] [place] [address] Assigned Endocrinology Provider 08/15/22 Dom Eason MD 717 [facility] 353 [place] [address] Assigned Nephrology Provider 11/28/22 02/19/23 Wagner Oliver MD 6401 [place] [address] Critical Care 12/15/22 Laura Epperson, [place] 717 [facility] 1932 [place] [address] Assigned Nephrology Provider 02/20/23 08/30/24 Thom Taveras MD 25[address] [facility], [address] [place] [address] Assigned Cancer Care Provider 02/06/23 08/20/23 Joesph Crowe MD [address] [place] [address] 27906 Surgery 03/17/23 Joesph Crowe MD [address] [place] [address] 42896 Assigned Surgical Provider 04/03/23 09/30/24 Adonay Haq MD [address] [place] [address] Internal Medicine 06/14/23October, Denilson Jackson MD [address] [facility] [address] [place], [place] 220595 Assigned Heart and Vascular Provider 05/29/23 11/28/24 Jason Alvares MD [address] [place] [address] 025565 Assigned Neuroscience Provider 05/15/23 11/28/24 Ruth Riddle DPM, Podiatry/Foot and Ankle Surgery 08[address] [facility] [address] [place], [place] 067677 Assigned Musculoskeletal Provider 10/22/23 Jignesh Mathias MD [address] [place] [address] 01196 Gastroenterology 09/25/24 Adonay Haq MD [address] [place] [address] 50157 Assigned PCP 10/01/24 12/28/24 Omar Carmona MD [address] [place] [address] 06431 Assigned PCP 12/29/24 Jason Alvares MD 420 [facility] 295 [place], [place] 017115 Assigned Neuroscience Provider 12/29/24 Jignesh Mathias MD [address] [place] [address] 441715 Assigned Surgical Provider 12/29/24 Ayad Lopez, PhD LP [address] [place] [address] 720935 Assigned Behavioral Health Provider 02/28/25 Gavi Nieto, PA-C [address] [place] [address] 98437 Physician Operations Support Analyst Dermatology 03/19/25 documented as of this encounter
--- OUTSIDE RECORDS SUMMARY | 2025-06-10 11:29 | XMS_ITS | Encounter Summary ---
Author Organization [facility] Address [address] [place] [address]24 Care Team Providers Care Pupil Personnel Worker Name Role Phone Barry Kilpatrick MD Unavailable Michelle Henderson RN Unavailable [phone] Rio Jaquez MD Unavailable +[phone] Jemima Jaramillo MD Unavailable Unavai Kelley Bautista RN Unavailable [phone] Sydnee Saleem MD Unavailable [phone] Karlene Moya MD Unavailable +[phone] Wilbert Quintero OD Unavailable +[phone] Rod Gauthier DPM Unavailable +[phone] Jan Mahmood MD Unavailable +[phone] Brandt Quintana MD Unavailable [phone] Jan Mahmood MD Unavailable +[phone] Dom Eason MD Unavailable +[phone] Jaimie Vernon RN Unavailable Unavailable Marquise Hanley MD Unavailable +[phone] Vlad Ramey MD Unavailable +[phone] Joesph Crowe MD Unavailable Michelle Padilla RN Unavailable Unavaila ble Marquise Hanley MD Unavailable +[phone] Wagner Oliver MD Unavailable + [phone] Joesph Crowe MD Unavailable +[phone] Adonay Haq MD Unavailable [phone] Ruth RiddleM, Podiatry /Foot and Ankle Surgery Unavailable Omar Carmona MD Primary Care Provider [phone] Jignesh Mathias MD Unavailable Omar Carmona MD Unavailable +[phone] Jason Alvares MD Unavailable Jignesh Mathias MD Unavailable Ayad Lopez PhD LP Unavailable +[phone] Gavi Nieto PA-C Unavailable +[phone] Encounter Details Date Type Department Care Team [...] Answer Date Recorded PHQ-2 Score 2 05/03/2025 [facility] of Occupat ional Health - Occupational Stress [...] Sex Assigned at Female 09/12/2020 12:05 PM NOTCHING PRESS OPERATOR Legal Sex Female 3:26 AM NOTCHING PRESS OPERATOR Gender Identity Female 09/12/2020 12:05 PM NOTCHING PRESS OPERATOR Sexual Orientation Straight 12/19/2021 10 [...] st Contact Info) Description 06/13/2025 6:00 PM NOTCHING PRESS OPERATOR Ancillary Procedure [facility] Clinic [address] [phone] Omar Carmona MD [address] [place] [address] [phone] 06/14/2025 4:00 PM NOTCHING PRESS OPERATOR Office Visit [facility] Primary Care Clinic [address] [address] Omar Carmona MD [address] [place] [address] [phone] 06/15/2025 12:45 PM NOTCHING PRESS OPERATOR Therapy Visit [facility] Rehabilitation Services [address] [phone] Jason Alvares MD 420 [facility] 295 [place], [place] [phone] Chaya Castillo, OTR [facility] 150 [place] [address] 06/19/2025 10:30 AM NOTCHING PRESS OPERATOR Virtual Visit [facility] Primary Care [address] [address] Omar Carmona MD [address] [place] [address] 484085 Gerson Santos RPH 06/26/2025 11:00 AM NOTCHING PRESS OPERATOR Therapy Visit [facility] 150 [place] [address]-651314 Jason Alvares MD [address] [place] [address] Ch[facility] Castillo, [facility]TR [facility] 150 [place] [address] 07/09/2025 12:45 PM NOTCHING PRESS OPERATOR Therapy Visit [facility] 150 [place] [address]-796714 Jason Alvares MD [address] [place] [address] Chaya Castillo [facility]TR [facility] 150 [place] [address] 07/18/2025 3:00 PM NOTCHING PRESS OPERATOR Office Visit [facility] Heart [address] [phone] Adonay Chapman APRN [address] [address] 11/05/2025 12:30 PM CDT Lab [facility] Lab [address] 1st [place] [phone] 11/05/2025 1:45 PM CDT Office Visit [facility] Dermatology Clinic [address] 3rd [place] [phone] Gavi Nieto PA-C Dermatology [address] [place] [address] 11/20/2025 10:30 AM CDT Virtual Visit M [address] [address] Marquise Hanley MD [address] [place] [address] documented as of this encounter Goals Goal [...] documented as of this encounter Care Teams Pupil Personnel Worker Relationship Specialty Start Date End Date Omar Carmona MD [address] [place] [address] 15648 PCP - General Family Medicine 07/14/24 Barry Kilpatrick MD [address] [place] [address] [id number] [place] [address] Neurology 07/19/14 Michelle Henderson RN Nurse Coordinator Neurology 07/19/14 Rio Jaquez MD [address] [place] [address] 15998 Family Practice 10/15/14 Jemima Jaramillo MD [address] [place] [address] 01118 citrix lead 11/20/14 Kelley Chin, TANIA [address] [address] Nurse Coordinator Cardiology 11/04/15 Sydnee Saleem MD 420 [facility] 508 [place] [address] Cardiology 11/04/15 Karlene Moya MD 516 [place], [place] 947655 Ophthalmology 06/24/17 Wilbert Quintero OD 909 [place], [place] 996805 Optometry 06/24/17 Rod Gauthier DPM 909 [place], [place] 885045 Shipwright Apprentice Primary Podiatric Medicine 06/21/18 Jan Mahmood MD [address] [place] [address] 2A [place], [place] 416855 Gastroenterology 11/05/20 Brandt Quintana MD [address] [place] [address] Resident 11/05/20 Jan Mahmood MD [address] [address] Assigned Gastroenterology Provider 12/01/20 Dom Eason MD 717 [facility] 353 [place] [address] Internal Medicine 12/02/20 Jaimie Vernon, RN Specialty Lay Out Helper Cardiology 10/28/21 Marquise Hanley MD [address] [place] [address] Endocrinology, Diabetes, and Metabolism 03/05/22 Vlad Ramey MD [address] [place] [address] 63294 Cardiovascular Disease 05/07/22 Joesph Crowe MD [address] [place] [address] 52[address] Surgery 05/07/22 Michelle Padilla RN Specialty Lay Out Helper Cardiology 07/03/22 Marquise Hanley MD [address] [place] [address] 07274 Assigned Endocrinology Provider 08/15/22 Wagner Oliver MD [address] [place] [address] Critical Care 12/15/22 Joesph Crwoe MD [address] [place] [address] 95275 Surgery 03/17/23 Adonay Haq MD [address] [place] [address] 40161 Internal Medicine 06/14/23 Ruth Riddle DPM, Podiatry/Foot and Ankle Surgery [address] [place] 0[address]387 Assigned Musculoskeletal Provider 10/22/23 Jignesh Mathias MD [address] [place] [address] 414605 Gastroenterology 09/25/24 Omar Carmona MD [address] [place] [address] 654505 Assigned PCP 12/29/24 Jason Alvares MD [address] [place] [address] [phone] Assigned Neuroscience Provider 12/29/24 Jignesh Mathias MD [address] [place] [address] 251775 Assigned Surgical Provider 12/29/24 Ayad Lopez, PhD LP [address] [place] [address] 487175 Assigned Behavioral Health Provider 02/28/25 Gavi Nieto, PA-C [address] [place] [address] 556155 Physician Backend Developer Dermatology 03/19/25 documented as of this encounter
--- OUTSIDE RECORDS SUMMARY | 2025-06-10 11:30 | XMS_ITS | Encounter Summary ---
Author Organization [facility] Address [address] [place] [address]343 Care Team Providers Care Gis Administrator Name Role Phone Barry Kilpatrick MD Unavailable Michelle Henderson RN Unavailable [phone] Rio Jaquez MD Unavailable [phone] Jemima Jaramillo MD Unavailable Unavai Kelley Bautista RN Unavailable [phone] Sydnee Saleem MD Unavailable +[phone] Karlene Moya MD Unavailable [phone] Wilbert Quintero OD Unavailable +[phone] Rod Gauthier DPM Unavailable +[phone] Jan Mahmood MD Unavailable +[phone] Brandt Quintana MD Unavailable Jan Mahmood MD Unavailable +[phone] Dom Eason MD Unavailable +[phone] Jaimie Vernon RN Unavailable Unavailable Marquise Hanley MD Unavailable +[phone] Vlad Ramey MD Unavailable +[phone] Joesph Crowe MD Unavailable Michelle Padilla RN Unavailable Unavaila ble Marquise Hanley MD Unavailable +[phone] Wagner Oliver MD Unavailable [phone] Joesph Crowe MD Unavailable Adonay Haq MD Unavailable [phone] Ruth Riddle DPM, Podiatry /Foot and Ankle Surgery Unavailable Omar Carmona MD Primary Care Provider [phone] Jignesh Mathias MD Unavailable Omar Carmona MD Unavailable +[phone] Jason Alvares MD Unavailable Jignesh Mathias MD Unavailable Ayad Lopez PhD Unavailable [phone] Gavi Nieto PA-C Unavailable [phone] Encounter Details Date Type Department Care Team (Late st Contact Info) Description 04/26/2025 [facility] Hepatology Clinic [address] [phone] Jignesh Mathias MD [address] [place] [address] Social History Tobacco Use Types Packs/Day [...] Answer Date Recorded PHQ-2 Score 2 04/11/2025 [facility] of Occupat ional Health - Occupational Stress [...] an overnight nursing home, or couch-surfing.) Yes 04/30/2025 Are you [...] Sex Assigned at Female 09/12/2020 12:05 PM BIOLOGICAL SCIENCE TECHNICIAN FISH Legal Sex Female 3:26 AM BIOLOGICAL SCIENCE TECHNICIAN FISH Gender Identity Female 09/12/2020 12:05 PM BIOLOGICAL SCIENCE TECHNICIAN FISH Sexual Orientation Straight 12/19/2021 10 :44 AM CDT Occupation Industry Job Start Date Job End Date on disability for FMS Not on file Not on file Not on file disabled Not on file Not on file Not on file documented as of this encounter Plan of Treatment Upcoming Encounters Date Type Department Care Team (Late st Contact Info) Description 06/13/2025 6:00 PM BIOLOGICAL SCIENCE TECHNICIAN FISH Ancillary Procedure [facility] Imaging Center CT Clinic [address] [phone] Omar Carmona MD [address] [place] [address] 971905 06/14/2025 4:00 PM BIOLOGICAL SCIENCE TECHNICIAN FISH Office [facility] Care [address] [phone] Omar Carmona MD [address] [place] [address] 18174 06/15/2025 12:45 PM BIOLOGICAL SCIENCE TECHNICIAN FISH Therapy Visit [facility] Rehabilitation Services [address] [phone] Jason Alvares MD [address] [place] [address] 351105 Chaya Castillo, [facility] 150 [place] [address] 06/19/2025 10:30 AM BIOLOGICAL SCIENCE TECHNICIAN FISH Virtual Visit [facility] Primary Care [address] [place] [phone] Omar Carmona MD [address] [place] [address] 003535 Gerson Santos, FARZAD 06/26/2025 11:00 AM BIOLOGICAL SCIENCE TECHNICIAN FISH Therapy Visit [facility] 150 [place] [phone] Jason Alvares MD [address] [place] [address] 447145 Chaya Castillo, OTR [address] [address] 07/09/2025 12:45 PM BIOLOGICAL SCIENCE TECHNICIAN FISH Therapy Visit [address] [phone] Jason Alvares MD [address] [place] [address] 545815 Chaya Castillo OTMari [address] [address] 07/18/2025 3:00 PM BIOLOGICAL SCIENCE TECHNICIAN FISH Office Visit [facility] Heart Clinic [address] [phone] Adonay Chapman APRN [facility] 500 [place], [place] 215865 11/05/2025 12:30 PM CDT Lab [facility] Lab [address] 1st [place] [phone] 11/05/2025 1:45 PM CDT Office Visit [facility] Dermatology Clinic [address] 3rd [place] [phone] Gavi Nieto PA-C Dermatology [address] [place] [address] 11/20/2025 10:30 AM CDT Virtual Visit [address] [address] Marquise Hanley MD [address] [place] [address] documented as of this encounter Goals Goal [...] documented as of this encounter Care Teams Gis Administrator Relationship Specialty Start Date End Date Omar Carmona MD [address] [place] [address] 18481 PCP - General Family Medicine 07/14/24 Barry Kilpatrick MD [address] [place] [address] [id number] [place] [address] Neurology 07/19/14 Michelle Henderson I, RN Nurse Coordinator Neurology 07/19/14 Rio Jaquez MD [address] [place] [address] [address] 4 [place] [address] Family Practice 10/15/14 Jemima Jaramillo MD 909 [facility] 4 [place] [address] clam bed laborer 11/20/14 Kelley Chin RN [facility] 909 [place] [address] Nurse Coordinator Cardiology 11/04/15 Sydnee Saleem MD [address] [place] [address] 508 [place], [place] 123865 Cardiology 11/04/15 Karlene Moya MD [address] [place] [address] 108325 Ophthalmology 06/24/17 Wilbert Quintero OD [address] [place] [address] 387035 Optometry 06/24/17 Rod Gauthier DPM 9 [place], [place] 782875 Patient Admitting Clerk Primary Podiatric Medicine 06/21/18 Jan Mahmood MD [address] [place] [address] 2A [place] [address] Gastroenterology 11/05/20 Brandt Quintana MD [address] [place] [address] 23807 Resident 11/05/20 Jan Mahmood MD [address] [place] [address] 26330 Assigned Gastroenterology Provider 12/01/20 Dom Eason MD [address] [place] [address] 7[address]14 Internal Medicine 12/02/20 Jaimie Vernon, RN Specialty Delimber Operator Cardiology 10/28/21 Marquise Hanley MD [address] [place] [address] 17606 Endocrinology, Diabetes, and Metabolism 03/05/22 Vlad Ramey MD [address] [place] [address] 67604 Cardiovascular Disease 05/07/22 Joesph Crowe MD [address] [place] [address] 98027 Surgery 05/07/22 Michelle Padilla RN Specialty Delimber Operator Cardiology 07/03/22 Marquise Hanley MD [address] [place] [address] 31501 Assigned Endocrinology Provider 08/15/22 Wagner Oliver MD [address] [place] [address] Critical Care 12/15/22 Joesph Crowe MD [address] [place] [address] 00355 Surgery 03/17/23 Adonay Haq MD [address] [place] [address] 16007 Internal Medicine 06/14/23 Ruth Riddle DPM, Podiatry/Foot and Ankle Surgery [address] [place] [address] [place] [address] 21131 Assigned Musculoskeletal Provider 10/22/23 Jignesh Mathias MD [address] [place] [address] 296515 Gastroenterology 09/25/24 Omar Carmona MD [address] [place] [address] 663415 Assigned PCP 12/29/24 Jason Alvares MD [address] [place] [address] 966765 Assigned Neuroscience Provider 12/29/24 Jignesh Mathias MD [address] [place] [address] 491415 Assigned Surgical Provider 12/29/24 Ayad Lopez, PhD LP [address] [place] [address] 392675 Assigned Behavioral Health Provider 02/28/25 Gavi Nieto PANavinC [address] [place] [address] 658785 Physician Physical Therapy Aide Dermatology 03/19/25 documented as of this encounter
--- OUTSIDE RECORDS SUMMARY | 2025-06-10 11:30 | XMS_ITS | Encounter Summary ---
Author Organization [facility] Address [address] [place] [address] 45047 Care Team Providers Care Information Systems Security Officer Name Role Phone Rio Jaquez MD Primary Care Provider + [phone] Barry Kilpatrick MD Unavailable Michelle Henderson RN Unavailable +[phone] Rio Jaquez MD Unavailable +[phone] Jemima Jaramillo MD Unavailable Unavai Kelley Bautista RN Unavailable +[phone] Sydnee Saleem MD Unavailable +[phone] Karlene Moya MD Unavailable +[phone] Wilbert Quintero OD Unavailable +[phone] Rod Gauthier DPM Unavailable +[phone] Nallely Hogue RN Unavailable Unavailable Jan Mahmood MD Unavailable +[phone] Brandt Quintana MD Unavailable +[phone] Jan Mahmood MD Unavailable +[phone] Rio Jaquez MD Unavailable +[phone] Dom Eason MD Unavailable +[phone] Jayla Plaza RN Unavailable +[phone] Jaimie [...] Unavailable +[phone] Dom Eason MD Unavailable +[phone] Wagner Oliver MD Unavailable +[phone] Laura Epperson NP Unavailable +[phone] Thom Taveras MD Unavailable +[phone] Joesph Crowe MD Unavailable +[phone] Joesph Crowe MD Unavailable +[phone] Adonay Haq MD Unavailable +[phone] Denilson Srinivasan MD Unavailable + [phone] Jason Alvares MD Unavailable Ruth Riddle DPM, Podiatry /Foot and Ankle Surgery Unavailable Omar Carmona MD Primary Care Provider +[phone] Jignesh Mathias MD Unavailable Adonay Haq MD Unavailable +1- Omar Carmona MD Unavailable +[phone] Jason Alvares MD Unavailable Jignesh Mathias MD Unavailable Ayad Lopez PhD LP Unavailable Gavi Nieto PA-C Unavailable +[phone] Encounter Details Date Type Department Care Team (Late st Contact Info) Description 09/18/2022 MyC Medical Advice [facility] Hepatology Clinic [address] [address] Jayla Plaza, RN Social History [...] any clubs o r organizations such as mormon groups, unions, fraternal or athletic groups, or [...] Answer Date Recorded PHQ-2 Score 2 08/12/2022 [facility] Occupat ional Health [...] Sex Assigned at Female 09/12/2020 12:05 PM PLASTIC PRESS MOLDER Legal Sex Female 3:26 AM PLASTIC PRESS MOLDER Gender Identity Female 09/12/2020 12:05 PM PLASTIC PRESS MOLDER Sexual Orientation Straight 12/19/2021 10 :44 [...] Coronavirus/COVID-19? No / Unsure 09/17/2022 10:41 AM PLASTIC PRESS MOLDER documented as of this encounter Plan of Treatment Upcoming Encounters Date Type Department Care Team (Late st Contact Info) Description 06/13/2025 6:00 PM PLASTIC PRESS MOLDER Ancillary Procedure [facility] Imaging Center CT Clinic [address]st [place] [phone] Omar Carmona MD [address] [place] [address] 642185 06/14/2025 4:00 PM PLASTIC PRESS MOLDER Office Visit [facility] Primary Care Clinic [address]th [place] [phone] Omar Carmona MD [address] [place] [address] 962175 06/15/2025 12:45 PM PLASTIC PRESS MOLDER Therapy Visit [facility] Rehabilitation Services [address] [phone] Jason Alvares MD [address] [place] [address] 943945 Chaya Castillo, [facility] 150 [place] [address] 06/19/2025 10:30 AM PLASTIC PRESS MOLDER Virtual Visit [facility] Primary Care Clinic [address] [place] [address] 4th [place] [phone] Omar Carmona MD [address] [place] [address] 354465 Gerson Santos, [facility] 06/26/2025 11:00 AM PLASTIC PRESS MOLDER Therapy Visit [facility] 150 [place] [phone] Jason Alvares MD [address] [place] [address] 570575 Chaya Castillo, [facility] 150 [place] [address] 07/09/2025 12:45 PM PLASTIC PRESS MOLDER Therapy Visit [facility] 150 [place] [phone] Jason Alvares MD [address] [place] [address] 247695 Chaya Castillo, OTR [facility] 150 [place] [address] 07/18/2025 3:00 PM PLASTIC PRESS MOLDER Office Visit [facility] Heart Clinic [address] [phone] Adonay Chapman APRN [facility] 500 [place], [place] 603535 11/05/2025 12:30 PM CDT Lab [facility] Lab [address] [phone] 11/05/2025 1:45 PM CDT Office Visit [facility] Dermatology Clinic [place] [facility] [facility] 3rd [place] [phone] Gavi Nieto PA-C Dermatology [address] [place] [address] 11/20/2025 10:30 AM CDT Virtual Visit [address] [address] Marquise Hanley MD [address] [place] [address] documented as of this encounter Goals Goal [...] documented as of this encounter Care Teams Information Systems Security Officer Relationship Specialty Start Date End Date Rio Jaquez MD [address] [place] [address] [address] 4 [place] [address] PCP - General Family Practice 12/02/10 07/13/24 Omar Carmona MD [address] [place] [address] 68446 PCP - General Family Medicine 07/14/24 Barry Kilpatrick MD [address] [place] [address] [id number] [place], [place] 122405 Neurology 07/19/14 Michelle Henderson I, RN Nurse Coordinator Neurology 07/19/14 Rio Jaquez MD [address] [place] [address] FL 4 [place] [address] Family Practice 10/15/14 Jemima Jaramillo MD drawing operator 11/20/14 Kelley Chin, TANIA [address] [address] Nurse Coordinator Cardiology 11/04/15 Sydnee Saleem MD [address] [place] [address] 508 [place] [address] Cardiology 11/04/15 Karlene Moya MD [address] [place] [address] 596965 Ophthalmology 06/24/17 Wilbert Quintero, OD [address] [place] [address] 313195 Optometry 06/24/17 Rod Gauthier DPM [address] [place] [address] [phone] Chief Ii Dispatcher Primary Podiatric Medicine 06/21/18 Nallely Hogue, RN Registered Nurse 02/20/19 11/23/22 Jan Mahmood MD 6 [facility] P[facility] 2A [place], [place] 517645 Gastroenterology 11/05/20 Brandt Quintana MD 1414 [place] [address] Resident 11/05/20 Jan Mahmood MD [facility] [place] [address] Assigned Gastroenterology Provider 12/01/20 Rio Jaquez MD 909 [facility] 4 [place], [place] 912455 Assigned PCP 11/17/20 09/30/24 oDm Eason MD 717 [facility] 353 [place] [address] Internal Medicine 12/02/20 Jayla Plaza, RN Specialty Drapery Sewer Hand Hepatology 01/09/21 02/13/24 Jaimie [place], RN Specialty Drapery Sewer Hand Cardiology 10/28/21 Ruth Riddle DPM, Podiatry/Foot and Ankle Surgery [address] [address] Assigned Musculoskeletal Provider 11/30/21 09/30/23 Marquise Hanley MD [address] [place] [address] [phone] Endocrinology, Diabetes, and Metabolism 03/05/22 Vlad Ramey MD [address] [place] [address] 576525 Cardiovascular Disease 05/07/22 Joesph Crowe MD [address] [place] [address] 749[address] Surgery 05/07/22 uLis Arrington MD [address] [place] [address] 643[address] Assigned Neuroscience Provider 05/16/22 05/14/23 Michelle Padilla RN Specialty Drapery Sewer Hand Cardiology 07/03/22 Vlad Ramey MD [address] [place] [address] [phone] Assigned Heart and Vascular Provider 07/25/22 05/28/23 Marquise Hanley MD [address] [place] [address] 107895 Assigned Endocrinology Provider 08/15/22 Dom Eason MD 717 [facility]EL 353 [place], [place] 875194 Assigned Nephrology Provider 11/28/22 02/19/23 Wagner Oliver MD [address] [place] [address] Critical Care 12/15/22 Laura Epperson NP 717 [facility] 1932 [place] [address] Assigned Nephrology Provider 02/20/23 08/30/24 Thom Taveras MD 2512 [facility], R105 [place], [place] 541324 Assigned Cancer Care Provider 02/06/23 08/20/23 Joesph Crowe MD [address] [place] [address] MD Surgery 03/17/23 Joesph Crowe MD [address] [place] [address] 40633 Assigned Surgical Provider 04/03/23 09/30/24 Adonay Haq MD [address] [place] [address] Internal Medicine 06/14/23OctoberDenilson MD 6405 [facility] [place] [address] Assigned Heart and Vascular Provider 05/29/23 11/28/24 Jason Alvares MD [address] [place] [address] Assigned Neuroscience Provider 05/15/23 11/28/24 Ruth Riddle DPM, Podiatry/Foot and Ankle Surgery 87996 [facility] 300 [place] [address] Assigned Musculoskeletal Provider 10/22/23 Jignesh Mathias MD [address] [place] [address] Gastroenterology 09/25/24 Adonay Haq MD [address] [place] [address] 464465 Assigned PCP 10/01/24 12/28/24 Omar Carmona MD [address] [place] [address] 194395 Assigned PCP 12/29/24 Jason Alvares MD [address] [place] [address] Assigned Neuroscience Provider 12/29/24 Jignesh Mathias MD [address] [place] [address] Assigned Surgical Provider 12/29/24 Ayad Lopez, PhD LP [address] [place] [address] Assigned Behavioral Health Provider 02/28/25 Gavi Nieto, PA-C [address] [place] [address] Physician Customer Support Executive Dermatology 03/19/25 documented as of this encounter
--- OUTSIDE RECORDS SUMMARY | 2025-06-10 11:30 | XMS_ITS | Encounter Summary ---
Author Organization [facility] Address [address] [place] [address]36 Care Team Providers Care Clerk Cashier Name Role Phone Barry Kilpatrick MD Unavailable Michelle Henderson RN Unavailable Rio Jaquez MD Unavailable +[phone] Jemima Jaramillo MD Unavailable Unavai Kelley Bautista RN Unavailable [phone] Sydnee Saleem MD Unavailable +[phone] Karlene Moya MD Unavailable +[phone] Wilbert Quintero OD Unavailable +[phone] Rod Gauthier DPM Unavailable +[phone] Jan Mahmood MD Unavailable +[phone] Brandt Quintana MD Unavailable [phone] Jan Mahmood MD Unavailable +[phone] Dom Eason MD Unavailable +[phone] Jaimie Vernon RN Unavailable Unavailable Marquise Hanley MD Unavailable +[phone] Vlad Ramey MD Unavailable +[phone] Joesph Crowe MD Unavailable Michelle Padilla RN Unavailable Unavaila ble Marquise Hanley MD Unavailable +[phone] Wagner Oliver MD Unavailable + [phone] Joesph Crowe MD Unavailable +[phone] Adonay Haq MD Unavailable [phone] Ruth RiddleM, Podiatry /Foot and Ankle Surgery Unavailable Omar Carmona MD Primary Care Provider [phone] Jignesh Mathias MD Unavailable Omar Carmona MD Unavailable +[phone] Jason Alvares MD Unavailable Jignesh Mathias MD Unavailable Ayad Lopez PhD LP Unavailable +[phone] Gavi iNeto PA-C Unavailable +[phone] Encounter Details Date Type Department Care Team [...] Answer Date Recorded PHQ-2 Score 2 05/03/2025 [facility] [place] of Occupat ional Health - Occupational Stress [...] Assigned at Female 09/12/2020 12:05 PM ENTRY LEVEL MECHANICAL ENGINEER Legal Sex Female 3:26 AM ENTRY LEVEL MECHANICAL ENGINEER Gender Identity Female 09/12/2020 12:05 PM ENTRY LEVEL MECHANICAL ENGINEER Sexual Orientation Straight 12/19/2021 10 :44 [...] Contact Info) Description 06/13/2025 6:00 PM ENTRY LEVEL MECHANICAL ENGINEER Ancillary Procedure [facility] CT Clinic [address] [phone] Omar Carmona MD [address] [place] [address] [phone] 06/14/2025 4:00 PM ENTRY LEVEL MECHANICAL ENGINEER Office Visit [facility] [address] [address] Omar Carmona MD [address] [place] [address] [phone] 06/15/2025 12:45 PM ENTRY LEVEL MECHANICAL ENGINEER Therapy Visit [facility] [address] [phone] Jason Alvares MD 420 [facility] 295 [place], [place] [phone] Chaya Castillo, OTR [facility] 150 [place] [address] 06/19/2025 10:30 AM ENTRY LEVEL MECHANICAL ENGINEER Virtual Visit [facility] Primary Care [address] [address] Omar Carmona MD [address] [place] [address] 551835 Gerson Santos RPH 06/26/2025 11:00 AM ENTRY LEVEL MECHANICAL ENGINEER Therapy Visit [facility] 150 [facility] [place] [address]36[address]14 Jason Alvares MD [address] [place] [address] Chaya Castillo, [facility] 150 [place] [address] 07/09/2025 12:45 PM ENTRY LEVEL MECHANICAL ENGINEER Therapy Visit [facility] 150 [place] [address]87[address]14 Jason Alvares MD [address] [place] [address] Chaya Castillo [facility]TR [facility] 150 [place] [address] 07/18/2025 3:00 PM ENTRY LEVEL MECHANICAL ENGINEER Office Visit [facility] [address] [phone] Adonay Chapman APRN [address] [address] 11/05/2025 12:30 PM CDT Lab [facility] Lab [address] 1st [place] [address] 11/05/2025 1:45 PM CDT Office Visit [facility] Dermatology Clinic [address] 3rd [place] [phone] Gavi Nieto PA-C Dermatology [address] [place] [address] 11/20/2025 10:30 AM CDT Virtual Visit M [address] [address] Marquise Hanley MD [address] [place] [address] documented as of this encounter Goals Goal [...] documented as of this encounter Care Teams Clerk Cashier Relationship Specialty Start Date End Date Omar Carmona MD [address] [place] [address] PCP - General Family Medicine 07/14/24 Barry Kilpatrick MD [address] [place] [address] [id number] [place] [address] Neurology 07/19/14 Michelle Henderson RN Nurse Coordinator Neurology 07/19/14 Rio Jaquez MD [address] [place] [address] 38476 Family Practice 10/15/14 Jemima Jaramillo MD [address] [place] [address] 81602 postal transportation clerk 11/20/14 Kelley Chin, TANIA [address] [address] Nurse Coordinator Cardiology 11/04/15 Sydnee Saleem MD 420 [facility] 508 [place] [address] Cardiology 11/04/15 Karlene Moya MD 516 [place], [place] 045995 Ophthalmology 06/24/17 Wilbert Quintero OD 909 [place], [place] 095025 Optometry 06/24/17 Rod Gauthier DPM 909 [place], [place] 767815 Grad Intern Primary Podiatric Medicine 06/21/18 Jan Mahmood MD [address] [place] [address] 2A [place], [place] 645725 Gastroenterology 11/05/20 Brandt Quintana MD [address] [place] [address]809 Resident 11/05/20 Jan Mahmood MD [address] [address] Assigned Gastroenterology Provider 12/01/20 Dom Eason MD 717 [facility] 353 [place] [address] Internal Medicine 12/02/20 Jaimie Vernon, RN Specialty Pump Installer Cardiology 10/28/21 Marquise Hanley MD [address] [place] [address] Endocrinology, Diabetes, and Metabolism 03/05/22 Vlad Ramey MD [address] [place] [address] 99667 Cardiovascular Disease 05/07/22 Joesph Crowe MD [address] [place] [address] 84056 Surgery 05/07/22 Michelle Padilla RN Specialty Pump Installer Cardiology 07/03/22 Marquise Hanley MD [address] [place] [address] 83616 Assigned Endocrinology Provider 08/15/22 Wagner Oliver MD [address] [place] [address] Critical Care 12/15/22 Joesph Crowe MD [address] [place] [address] 60848 Surgery 03/17/23 Adonay Haq MD [address] [place] [address] 7[address]79 Internal Medicine 06/14/23 Ruth Riddle DPM, Podiatry/Foot and Ankle Surgery [address] [place] 655[address] Assigned Musculoskeletal Provider 10/22/23 Jignesh Mathias MD [address] [place] [address] 764055 Gastroenterology 09/25/24 Omar Carmona MD [address] [place] [address] 382105 Assigned PCP 12/29/24 Jason Alvares MD [address] [place] [address] [phone] Assigned Neuroscience Provider 12/29/24 Jignesh Mathias MD [address] [place] [address] 972975 Assigned Surgical Provider 12/29/24 Ayad Lopez, PhD LP [address] [place] [address] 696105 Assigned Behavioral Health Provider 02/28/25 Gavi Nieto, PA-C [address] [place] [address] 961745 Physician [employer] Dermatology 03/19/25 documented as of this encounter
--- OUTSIDE RECORDS SUMMARY | 2025-06-10 11:30 | XMS_ITS | Encounter Summary ---
Author Organization [facility] Address [address] [place] [address]00 Care Team Providers Care Telehealth Coordinator Name Role Phone Barry Kilpatrick MD Unavailable Michelle Henderson RN Unavailable [phone] Rio Jaquez MD Unavailable +[phone] Jemima Jaramillo MD Unavailable Unavai Kelley Bautista RN Unavailable [phone] Sydnee Saleem MD Unavailable +[phone] Karlene Moya MD Unavailable +[phone] Wilbert Quintero OD Unavailable +[phone] Rod Gauthier DPM Unavailable +[phone] Jan Mahmood MD Unavailable +[phone] Brandt Quintana MD Unavailable Jan Mahmood MD Unavailable +[phone] Dom Eason MD Unavailable +[phone] Jaimie Vernon RN Unavailable Unavailable Marquise Hanley MD Unavailable +[phone] Vlad Ramey MD Unavailable +[phone] Joesph Crowe MD Unavailable Michelle Padilla RN Unavailable Unavaila ble Marquise Hanley MD Unavailable [phone] Wagner Oliver MD Unavailable [phone] Joesph Crowe MD Unavailable Adonay Haq MD Unavailable Ruth Riddle DPM, Podiatry /Foot and Ankle Surgery Unavailable Omar Carmona MD Primary Care Provider Jignesh Mathias MD Unavailable Omar Carmona MD Unavailable Jason Alvares MD Unavailable Jignesh Mathias MD Unavailable Ayad Lopez PhD LP Unavailable [phone] Gavi Nieto PA-C Unavailable +[phone] Encounter Details Date Type Department Care Team (Late st Contact Info) Description 05/09/2025 [facility] Primary Care Clinic [address] [address] Omar Carmona MD [address] [place] [address] Social History Tobacco Use Types Packs/Day [...] Answer Date Recorded PHQ-2 Score 2 05/03/2025 [facility] of Occupat ional [facility] - Occupational Stress Questionnaire Answer Date [...] Sex Assigned at Female 09/12/2020 12:05 PM CLASSIFIED ADVERTISING MANAGER Legal Sex Female 3:26 AM CLASSIFIED ADVERTISING MANAGER Gender Identity Female 09/12/2020 12:05 PM CLASSIFIED ADVERTISING MANAGER Sexual Orientation Straight 12/19/2021 10 :44 AM CDT Occupation Industry Job Start Date Job End Date on disability for FMS Not on file Not on file Not on file disabled Not on file Not on file Not on file documented as of this encounter Plan of Treatment Upcoming Encounters Date Type Department Care Team (Late st Contact Info) Description 06/13/2025 6:00 PM CLASSIFIED ADVERTISING MANAGER Ancillary Procedure [facility] CT Clinic [address]st [place] [phone] Omar Carmona MD [address] [place] [address] 179435 06/14/2025 4:00 PM CLASSIFIED ADVERTISING MANAGER Office Visit [facility] Care [address]th [place] [phone] Omar Carmona MD [address] [place] [address] 06/15/2025 12:45 PM CLASSIFIED ADVERTISING MANAGER Therapy Visit [facility] Rehabilitation Services [address] [address]-428714 Jason Alvares MD [address] [place] [address] 295 [place], [place] 204205 Chaya Castillo OTR [facility] 150 [place] [address] 06/19/2025 10:30 AM CLASSIFIED ADVERTISING MANAGER Virtual Visit [facility] Primary Care [address] 4th [place] [phone] Omar Carmona MD [address] [place] [address] 784005 Gerson Santos, [facility] 06/26/2025 11:00 AM CLASSIFIED ADVERTISING MANAGER Therapy Visit [facility] 150 [place] [phone] Jason Alvares MD [address] [place] [address] 020675 Chaya Castillo, OTR [address] [address] 07/09/2025 12:45 PM CLASSIFIED ADVERTISING MANAGER Therapy Visit [address] [phone] Jason Alvares MD [address] [place] [address] 043975 Chaya Castillo, OTR [address] [address] 07/18/2025 3:00 PM CLASSIFIED ADVERTISING MANAGER Office Visit [facility] [address] [phone] Adonay Chapman APRN [facility] 500 [place], [place] 122295 11/05/2025 12:30 PM CDT Lab [facility] Lab [address] [phone] 11/05/2025 1:45 PM CDT Office Visit [facility] Dermatology Clinic [address]rd [place] [phone] Gavi Nieto PA-C Dermatology [address] [place] [address] 11/20/2025 10:30 AM CDT Virtual Visit [address] [phone] Marquise Hanley MD [address] [place] [address] documented as of this encounter Goals Goal [...] as of this encounter Care Teams Telehealth Coordinator Relationship Specialty Start Date End Date Omar Carmona MD [address] [place] [address] 27658 PCP - General Family Medicine 07/14/24 Barry Kilpatrick MD [address] [place] [address] [id number] [place] [address] Neurology 07/19/14 Michelle Henderson I, TANIA Nurse Coordinator Neurology 07/19/14 Rio Jaquez MD [address] [place] [address] FL 4 [place] [address] Family Practice 10/15/14 Jemima Jaramillo MD 9 [facility] 4 [place] [address] bricklayer helper 11/20/14 Kelley Chin, TANIA [facility] [address] [place] [address] Nurse Coordinator Cardiology 11/04/15 Sydnee Saleem MD [address] [place] [address] 508 [place], [place] 248935 Cardiology 11/04/15 Karlene Moya MD [address] [place] [address] [phone] Ophthalmology 06/24/17 Wilbert Quintero OD [address] [place] [address] 460885 Optometry 06/24/17 Rod Gauthier DPM [address] [place] [address] 398935 Print Support Specialist Primary Podiatric Medicine 06/21/18 Jan Mahmood MD [address] [place] [address] 2A [place] [address] Gastroenterology 11/05/20 Brandt Quintana MD [address] [place] [address] 239[address] Resident 11/05/20 Jan Mahmood MD [address] [place] [address] 2A [place] [address] Assigned Gastroenterology Provider 12/01/20 Dom Eason MD [address] [place] [address] 5[address] Internal Medicine 12/02/20 Jaimie Vernon, RN Specialty Design Coordinator Cardiology 10/28/21 Marquise Hanley MD [address] [place] [address] 28444 Endocrinology, Diabetes, and Metabolism 03/05/22 Vlad Ramey MD [address] [place] [address] 94287 Cardiovascular Disease 05/07/22 Joesph Crowe MD [address] [place] [address] 53190 Surgery 05/07/22 Michelle Padilla, RN Specialty Design Coordinator Cardiology 07/03/22 Marquise Hanley MD [address] [place] [address] 83209 Assigned Endocrinology Provider 08/15/22 Wagner Oliver MD [address] [place] [address] Critical Care 12/15/22 Joesph Crowe MD [address] [place] [address] 36111 Surgery 03/17/23 Adonay Haq MD [address] [place] [address] 6[address]97 Internal Medicine 06/14/23 Ruth Riddle DPM, Podiatry/Foot and Ankle Surgery [address] [address] Assigned Musculoskeletal Provider 10/22/23 Jignesh Mathias MD [address] [place] [address] 457295 Gastroenterology 09/25/24 Omar Carmona MD [address] [place] [address] 789945 Assigned PCP 12/29/24 Jason Alvares MD [address] [place] [address] 305695 Assigned Neuroscience Provider 12/29/24 Jignesh Mathias MD [address] [place] [address] 195815 Assigned Surgical Provider 12/29/24 Ayad Lopez, PhD LP [address] [place] [address] 044595 Assigned Behavioral Health Provider 02/28/25 Gavi Nieto PANavinC [address] [place] [address] 325575 Physician Cotton Bag Clipper Dermatology 03/19/25 documented as of this encounter
--- OUTSIDE RECORDS SUMMARY | 2025-06-10 11:30 | XMS_ITS | Encounter Summary ---
Author Organization [place] Address [address] [place] [address] 25557 Care Team Providers Care Livestock Nutritionist Name Role Phone Barry Kilpatrick MD Unavailable Michelle Henderson RN Unavailable [phone] Rio Jaquez MD Unavailable +[phone] Jemima Jaramillo MD Unavailable Unavai Kelley Bautista RN Unavailable +[phone] Sydnee Saleem MD Unavailable +[phone] Karlene Moya MD Unavailable +[phone] Wilbert Quintero OD Unavailable +[phone] Rod Gauthier DPM Unavailable +[phone] Jan Mahmood MD Unavailable +[phone] Brandt Quintana MD Unavailable Jan Mahmood MD Unavailable +[phone] Dom Eason MD Unavailable +[phone] Jaimie Vernon RN Unavailable Unavailable Marquise Hanley MD Unavailable +[phone] Vlad Ramey MD Unavailable +[phone] Joesph Crowe MD Unavailable +[phone] Michelle Padilla RN Unavailable Unavaila ble Marquise Hanley MD Unavailable +[phone] Wagner Oliver MD Unavailable + [phone] Joesph Crowe MD Unavailable +[phone] Adonay Haq MD Unavailable +[phone] Ruth Riddle DPM, Podiatry /Foot and Ankle Surgery Unavailable Omar Carmona MD Primary Care Provider [phone] Jignesh Mathias MD Unavailable Omar Carmona MD Unavailable +[phone] Jason Alvares MD Unavailable Jignesh Mathias MD Unavailable Ayad Lopez PhD LP Unavailable +[phone] Gavi Nieto PA-C Unavailable +[phone] Encounter Details Date Type Department Care Team [...] Answer Date Recorded PHQ-2 Score 2 05/03/2025 [facility] [place] of Occupat ional Health - Occupational Stress [...] Assigned at Female 09/12/2020 12:05 PM AUTO TECHNICIAN Legal Sex Female 3:26 AM AUTO TECHNICIAN Gender Identity Female 09/12/2020 12:05 PM AUTO TECHNICIAN Sexual Orientation Straight 12/19/2021 10 :44 AM CDT Occupation Industry Job Start Date Job End Date on disability for FMS Not on file Not on file Not on file disabled Not on file Not on file Not on file documented as of this encounter Plan of Treatment Upcoming Encounters Date Type Department Care Team (Late st Contact Info) Description 06/13/2025 6:00 PM AUTO TECHNICIAN Ancillary Procedure [facility] Imaging Center [place] Clinic [address] [phone] Omar Carmona MD [address] [place] [place] [address] [phone] 06/14/2025 4:00 PM AUTO TECHNICIAN Office Visit [facility] Primary Care Clinic [address] [address] Omar Carmona MD [address] [place] [place] [address] [phone] 06/15/2025 12:45 PM AUTO TECHNICIAN Therapy Visit [facility] Rehabilitation Services [address] [phone] Jason Alvares MD 420 [facility] 295 [place], [place] [phone] Chaya Castillo, OTR [facility] 150 [place] [address] 06/19/2025 10:30 AM AUTO TECHNICIAN Virtual Visit [facility] Primary Care [address] [address] Omar Carmona MD [address] [place] [place] [address] 550915 Gerson Santos RPH 06/26/2025 11:00 AM AUTO TECHNICIAN Therapy Visit [facility] [place] [address] Jason Alvares MD [address] [place] [address] Chaya Castillo, [facility]TR [facility] 150 [place] [address] 07/09/2025 12:45 PM AUTO TECHNICIAN Therapy Visit [facility] 150 [place] [address] Jason Alvares MD [address] [place] [address] [facility] 150 [place] [address] 07/18/2025 3:00 PM AUTO TECHNICIAN Office Visit [facility] Heart [address] [phone] Adonay Chapman APRN [address] [address] 11/05/2025 12:[address] [facility] Lab [address] 1st [place] [phone] 11/05/2025 1:45 PM CDT Office Visit [facility] Dermatology Clinic [address] 3rd [place] [phone] Gavi Nieto PA-C Dermatology [address] [place] [address] 11/20/2025 10:30 AM CDT Virtual Visit M [address] [address] Marquise Hanley MD [address] [place] [place] [address] 40689 documented as of this encounter Goals Goal [...] documented as of this encounter Care Teams Livestock Nutritionist Relationship Specialty Start Date End Date Omar Carmona MD [address] [place] [place] [address] 79706 PCP - General Family Medicine 07/14/24 Barry Kilpatrick MD [address] [place] [address] [id number] [place] [address] Neurology 07/19/14 Michelle Henderson RN Nurse Coordinator Neurology 07/19/14 Rio Jaquez MD [address] [place] [address] 40565 Family Practice 10/15/14 Jemima Jaramillo MD [address] [place] [address] 00886 voicer 11/20/14 Kelley Chin, TANIA [address] [address] Nurse Coordinator Cardiology 11/04/15 Sydnee Saleem MD 420 [facility] 508 [place] [address] Cardiology 11/04/15 Karlene Moya MD 516 [place], [place] 164885 Ophthalmology 06/24/17 Wilbert Quintero OD 909 [place], [place] 737975 Optometry 06/24/17 Rod Gauthier DPM 909 [place], [place] 920615 Evaluation Assistant Primary Podiatric Medicine 06/21/18 Jan Mahmood MD [address] [place] [address] 2A [place], [place] 995225 Gastroenterology 11/05/20 Brandt Quintana MD [address] [place] [address] 13648 Resident 11/05/20 Jan Mahmood MD [address] [address] Assigned Gastroenterology Provider 12/01/20 Dom Eason MD 717 [facility] 353 [place] [address] Internal Medicine 12/02/20 Jaimie Vernon, RN Specialty Sql Server Dba Cardiology 10/28/21 Marquise Hanley MD [address] [place] [address] 92043 Endocrinology, Diabetes, and Metabolism 03/05/22 Vlad Ramey MD [address] [place] [place] [address] 92360 Cardiovascular Disease 05/07/22 Joesph Crowe MD [address] [place] [address] 06345 Surgery 05/07/22 Michelle Padilla RN Specialty Sql Server Dba Cardiology 07/03/22 Marquise Hanley MD [address] [place] [place] [address] 09383 Assigned Endocrinology Provider 08/15/22 Wagner Oliver MD [address] [place] [address] Critical Care 12/15/22 Joesph Crowe MD [address] [place] [place] [address] 16662 Surgery 03/17/23 Adonay Haq MD [address] [place] [address] Internal Medicine 06/14/23 Ruth Riddle DPM, Podiatry/Foot and Ankle Surgery [address] [place] [address] Assigned Musculoskeletal Provider 10/22/23 Jignesh Mathias MD [address] [place] [place] [address] 081535 Gastroenterology 09/25/24 Omar Carmona MD [address] [place] [place] [address] [phone] Assigned PCP 12/29/24 Jason Alvares MD [address] [place] [address] [phone] Assigned Neuroscience Provider 12/29/24 Jignesh Mathias MD [address] [place] [address] 372015 Assigned Surgical Provider 12/29/24 Ayad Lopez, PhD LP [address] [place] [address] [phone] Assigned Behavioral Health Provider 02/28/25 Gavi Nieto, PA-C [address] [place] [address] 859965 Physician Director Patient Dermatology 03/19/25 documented as of this encounter
--- OUTSIDE RECORDS SUMMARY | 2025-06-10 11:30 | XMS_ITS | Encounter Summary ---
Author Organization [place] Address [address] [place] [address] Care Team Providers Care Vault Clerk Name Role Phone Barry Kilpatrick MD Unavailable Michelle Henderson RN Unavailable [phone] Rio Jaquez MD Unavailable +[phone] Jemima Jaramillo MD Unavailable Unavai Kelley Bautista RN Unavailable [phone] Sydnee Saleem MD Unavailable [phone] Karlene Moya MD Unavailable [phone] Wilbert Quintero OD Unavailable +[phone] Rod Gauthier DPM Unavailable +[phone] Jan Mahmood MD Unavailable +[phone] Brandt Quintana MD Unavailable [phone] Jan Mahmood MD Unavailable [phone] Dom Eason MD Unavailable +[phone] Jaimie Vernon RN Unavailable Unavailable Marquise Hanley MD Unavailable +[phone] Vlad Ramey MD Unavailable +[phone] Joesph Crowe MD Unavailable [phone] Michelle Padilla RN Unavailable Unavaila ble Marquise Hanley MD Unavailable +[phone] Wagner Oliver MD Unavailable + [phone] Joesph Crowe MD Unavailable +[phone] Adonay Haq MD Unavailable [phone] Ruth RdidleM, Podiatry /Foot and Ankle Surgery Unavailable Omar Carmona MD Primary Care Provider [phone] Jignesh Mathias MD Unavailable Omar Carmona MD Unavailable +[phone] Jason Alvares MD Unavailable Jignesh Mathias MD Unavailable Ayad Lopez PhD LP Unavailable [phone] Gavi Nieto PA-C Unavailable +[phone] Encounter Details Date Type Department Care Team [...] Answer Date Recorded PHQ-2 Score 2 05/03/2025 [facility] [place] of Occupat ional Health - Occupational Stress [...] Sex Assigned at Female 09/12/2020 12:05 PM BUS REPAIR SUPERVISOR Legal Sex Female 3:26 AM BUS REPAIR SUPERVISOR Gender Identity Female 09/12/2020 12:05 PM BUS REPAIR SUPERVISOR Sexual Orientation Straight 12/19/2021 10 :44 AM CDT Occupation Industry Job Start Date Job End Date on disability for FMS Not on file Not on file Not on file disabled Not on file Not on file Not on file documented as of this encounter Plan of Treatment Upcoming Encounters Date Type Department Care Team (Late st Contact Info) Description 06/13/2025 6:00 PM BUS REPAIR SUPERVISOR Ancillary Procedure [facility] Imaging Center CT Clinic [address] [phone] Omar Carmona MD [address] [place] [address] [phone] 06/14/2025 4:00 PM BUS REPAIR SUPERVISOR Office Visit [facility] Primary Care Clinic [address] [address] Omar Carmona MD [address] [place] [address] [phone] 06/15/2025 12:45 PM BUS REPAIR SUPERVISOR Therapy Visit [facility] Rehabilitation Services [address] [phone] Jason Alvares MD 420 [facility] 295 [place], [place] [phone] Chaya Castillo, OTR [facility] 150 [place] [address] 06/19/2025 10:30 AM BUS REPAIR SUPERVISOR Virtual Visit [facility] Primary Care [address] [address] Omar Carmona MD [address] [place] [address] 046435 Gerson Santos RPH 06/26/2025 11:00 AM BUS REPAIR SUPERVISOR Therapy Visit [facility] [place] [address] Jason Alvares MD [address] [place] [address] [facility]illo[facility] 150 [place] [address] 07/09/2025 12:45 PM BUS REPAIR SUPERVISOR Therapy Visit [facility] 150 [place] [address] Jason Alvares MD [address] [place] [address] Chaya Castillo [facility] [address] [place] [address] 07/18/2025 3:00 PM BUS REPAIR SUPERVISOR Office Visit [facility] Heart [address] [phone] Adonay Chapman APRN [address] [address] 11/05/2025 12:30 PM CDT Lab [facility] Lab [address] 1st [place] [phone] 11/05/2025 1:45 PM CDT Office Visit [facility] Dermatology Clinic [address] 3rd [place] [phone] Gavi Nieto PA-C Dermatology [address] [place] [address] 11/20/2025 10:30 AM CDT Virtual Visit M [address] [address] Marquise Hanley MD [address] [place] [address] 15679 documented as of this encounter Goals Goal [...] documented as of this encounter Care Teams Vault Clerk Relationship Specialty Start Date End Date Omar Carmona MD [address] [place] [address] 07862 PCP - General Family Medicine 07/14/24 Barry Kilpatrick MD [address] [place] [address] [id number] [place] [address] Neurology 07/19/14 Michelle Henderson RN Nurse Coordinator Neurology 07/19/14 Rio Jaquez MD [address] [place] [address]78 Family Practice 10/15/14 Jemima Jaramillo MD [address] [place] [address] 27582 cell liner 11/20/14 Kelley Chin, TANIA [address] [address] Nurse Coordinator Cardiology 11/04/15 Sydnee Saleem MD 420 [facility] 508 [place] [address] Cardiology 11/04/15 Karlene Moya MD 516 [place], [place] 286645 Ophthalmology 06/24/17 Wilbert Quintero OD 909 [place], [place] 482395 Optometry 06/24/17 Rod Gauthier DPM 909 [place], [place] 812005 Drier Primary Podiatric Medicine 06/21/18 Jan Mahmood MD [address] [place] [address] 2A [place], [place] 492205 Gastroenterology 11/05/20 Brandt Quintana MD [address] [place] [address]29 Resident 11/05/20 Jan Mahmood MD [address] [address] Assigned Gastroenterology Provider 12/01/20 Dom Eason MD 717 [facility] 353 [place] [address] Internal Medicine 12/02/20 Jaimie Vernon, RN Specialty Charging Machine Operator Cardiology 10/28/21 Marquise Hanley MD [address] [place] [address] 6[address] Endocrinology, Diabetes, and Metabolism 03/05/22 Vlad Ramey MD [address] [place] [address] 40747 Cardiovascular Disease 05/07/22 Joesph Crowe MD [address] [place] [address] 27872 Surgery 05/07/22 Michelle Padilla RN Specialty Charging Machine Operator Cardiology 07/03/22 Marquise Hanley MD [address] [place] [address] 81878 Assigned Endocrinology Provider 08/15/22 Wagner Oliver MD [address] [place] [address] Critical Care 12/15/22 Joesph Crowe MD [address] [place] [address] 59604 Surgery 03/17/23 Adonay Haq MD [address] [place] [address] 39244 Internal Medicine 06/14/23 Ruth Riddle DPM, Podiatry/Foot and Ankle Surgery [address] [place] 525157 Assigned Musculoskeletal Provider 10/22/23 Jignesh Mathias MD [address] [place] [address] 014075 Gastroenterology 09/25/24 Omar Carmona MD [address] [place] [address] 938535 Assigned PCP 12/29/24 Jason Alvares MD [address] [place] [address] [phone] Assigned Neuroscience Provider 12/29/24 Jignesh Mathias MD [address] [place] [address] 867915 Assigned Surgical Provider 12/29/24 Ayad Lopez, PhD LP [address] [place] [address] 061865 Assigned Behavioral Health Provider 02/28/25 Gavi Nieto, PA-C [address] [place] [address] 878955 Physician Fringe Knotter Dermatology 03/19/25 documented as of this encounter
--- OUTSIDE RECORDS SUMMARY | 2025-06-10 11:30 | XMS_ITS | Encounter Summary ---
Author Organization [place] Address [address] [place] [address] Care Team Providers Care Ward Helper Name Role Phone Barry Kilpatrick MD Unavailable Michelle Henderson RN Unavailable [phone] Rio Jaquez MD Unavailable +[phone] Jemima Jaramillo MD Unavailable Unavai Kelley Bautista RN Unavailable [phone] Sydnee Saleem MD Unavailable [phone] Karlene Moya MD Unavailable [phone] Wilbert Quintero OD Unavailable +[phone] Rod Gauthier DPM Unavailable +[phone] Jan Mahmood MD Unavailable +[phone] Brandt Quintana MD Unavailable Jan Mahmood MD Unavailable [phone] Dom Eason MD Unavailable +[phone] Jaimie Vernon RN Unavailable Unavailable Marquise Hanley MD Unavailable +[phone] Vlad Ramey MD Unavailable +[phone] Joesph Crowe MD Unavailable Michelle Padilla RN Unavailable Unavaila ble Marquise Hanley MD Unavailable [phone] Wagner Oliver MD Unavailable [phone] Joesph Crowe MD Unavailable [phone] Adonay Haq MD Unavailable Ruth Riddle DPM, Podiatry /Foot and Ankle Surgery Unavailable Omar Carmona MD Primary Care Provider [phone] Jignesh Mathias MD Unavailable Omar Carmona MD Unavailable Jason Alvares MD Unavailable Jignesh Mathias MD Unavailable Ayad Lopez PhD LP Unavailable [phone] Gavi Nieto PA-C Unavailable [phone] Encounter Details Date Type Department Care Team (Late st Contact Info) Description 04/26/2025 [facility] Primary Care Clinic [address] [address] Omar Carmona MD [address] [place] [address] Social History Tobacco Use Types Packs/Day [...] than three times a week 08/27/2021 Attends [employer] Not on file 08/27 Do you [...] Date Recorded PHQ-2 Score 2 04/11/2025 [facility] of Occupat ional Health [...] Sex Assigned at Female 09/12/2020 12:05 PM FAMILY WORKER Legal Sex Female 3:26 AM FAMILY WORKER Gender Identity Female 09/12/2020 12:05 PM FAMILY WORKER Sexual Orientation Straight 12/19/2021 10 :44 AM CDT Occupation Industry Job Start Date Job End Date on disability for FMS Not on file Not on file Not on file disabled Not on file Not on file Not on file documented as of this encounter Plan of Treatment Upcoming Encounters Date Type Department Care Team (Late st Contact Info) Description 06/13/2025 6:00 PM FAMILY WORKER Ancillary Procedure [facility] Imaging Center CT Clinic [address] [phone] Omar Carmona MD [address] [place] [address] 06/14/2025 4:00 PM FAMILY WORKER Office Visit [facility] Primary Care Clinic [address] [place] [phone] Omar Carmona MD [address] [place] [address] 06/15/2025 12:45 PM FAMILY WORKER [facility] [place] [facility] [place] [address] Jason Alvares MD [address] [place] [address] 821755 Chaya Castillo, OTR [facility] 150 [place], [place] 589577 06/19/2025 10:30 AM FAMILY WORKER Virtual Visit [facility] Primary Care Clinic [address] [place] [address] 4th [place] [address] Omar Carmona MD [address] [place] [address] Gerson Santos [facility] 06/26/2025 11:00 AM FAMILY WORKER [facility] 150 [place] [phone] Jason Alvares MD [address] [place] [address] 904705 Chaya Castillo, OTR [facility] 150 [place] [address] 07/09/2025 12:45 PM FAMILY WORKER [facility] 150 [place] [address] Jason Alvares MD [address] [place] [address] 052505 Chaya Castillo, OTR [facility] 150 [place] [address] 07/18/2025 3:00 PM FAMILY WORKER Office Visit [facility] Heart Clinic [address] [phone] Adonay Chapman APRN GLASS BLOWING LATHE OPERATOR 500 [place] [address] 11/05/2025 12:30 PM CDT Lab [facility] Lab [address] [phone] 11/05/2025 1:45 PM CDT Office Visit [facility] Dermatology Clinic [address]rd [place] [address] Gavi Nieto PA-C Dermatology [address] [place] [address] [phone] 11/20/2025 10:30 AM CDT Virtual Visit [address] [phone] Marquise Hanley MD [address] [place] [address] 8[address] documented as of this encounter Goals Goal [...] documented as of this encounter Care Teams Ward Helper Relationship Specialty Start Date End Date Omar Carmona MD [address] [place] [address]508 PCP - General Family Medicine 07/14/24 Barry Kilpatrick MD [address] [place] [address] [id number] [place], [place] 247035 Neurology 07/19/14 Michelle Henderson I, RN Nurse Coordinator Neurology 07/19/14 Rio Jaquez MD [address] [place] [address] 224425 Family Practice 10/15/14 Jemima Jaramillo MD [address] [place] [address]11 aeronautics commission director 11/20/14 Kelley Chin, TANIA [address] 462735 Nurse Coordinator Cardiology 11/04/15 Sydnee Saleem MD [address] [place] [address] [facility] [address] [place] 240935 Cardiology 11/04/15 Karlene Moya MD [address] [place] [address] 578635 Ophthalmology 06/24/17 Wilbert Quintero, OD [address] [place] [address] 326495 Optometry 06/24/17 Rod Gauthier DPM [address] [place] [address] 510845 Dancing Instructor Primary Podiatric Medicine 06/21/18 Jan Mahmood MD [address] [place] [address] [address] [place], [place] 215885 Gastroenterology 11/05/20 Brandt Quintana MD 1414 [place] [address] Resident 11/05/20 Jan Mahmood MD [address] [address] Assigned Gastroenterology Provider 12/01/20 Dom Eason MD [address] [address] Internal Medicine 12/02/20 Jaimie Vernon, RN Specialty Nutritional Yeast Supervisor Cardiology 10/28/21 Marquise Hanley MD [address] [place] [address] Endocrinology, Diabetes, and Metabolism 03/05/22 Vlad Ramey MD [address] [place] [address] 12555 Cardiovascular Disease 05/07/22 Joesph Crowe MD [address] [place] [address] 91387 Surgery 05/07/22 Michelle Padilla, RN Specialty Nutritional Yeast Supervisor Cardiology 07/03/22 Marquise Hanley MD [address] [place] [address] 55823 Assigned Endocrinology Provider 08/15/22 Wagner Oliver MD [address] [place] [address] Critical Care 12/15/22 Joesph Crowe MD [address] [place] [address] 97378 Surgery 03/17/23 Adonay Haq MD [address] [place] [address]132 Internal Medicine 06/14/23 Ruth Riddle DPM, Podiatry/Foot and Ankle Surgery [address] [address] Assigned Musculoskeletal Provider 10/22/23 Jignesh Mathias MD [address] [place] [address] 227[address] Gastroenterology 09/25/24 Omar Carmona MD [address] [place] [address] 22605 Assigned PCP 12/29/24 Jason Alvares MD [address] [place] [address] 22330 Assigned Neuroscience Provider 12/29/24 Jignesh Mathias MD [address] [place] [address]603 Assigned Surgical Provider 12/29/24 Ayad Lopez, PhD LP [address] [place] [address]408 Assigned Behavioral Health Provider 02/28/25 Gavi Nieto PA-C 500 [place] [address] Physician Talent Director Dermatology 03/19/25 documented as of this encounter
--- OUTSIDE RECORDS SUMMARY | 2025-06-10 11:30 | XMS_ITS | Encounter Summary ---
Author Organization [facility] Address [address] [place] [address]67 Care Team Providers Care Macerator Operator Name Role Phone Rio Jaquez MD Primary Care Provider + [phone] Barry Kilpatrick MD Unavailable Michelle Henderson RN Unavailable Rio Jaquez MD Unavailable +[phone] Jemima Jaramillo MD Unavailable Unavai Kelley Bautista RN Unavailable +[phone] Sydnee Saleem MD Unavailable +[phone] Karlene Moya MD Unavailable +[phone] Wilbert Quintero OD Unavailable +[phone] Rod Gauthier DPM Unavailable +[phone] Nallely Hogue RN Unavailable Unavailable Jan Mahmood MD Unavailable +[phone] Brandt Quintana MD Unavailable +[phone] Jan Mahmood MD Unavailable +[phone] Rio Jaquez MD Unavailable +[phone] Dom Eason MD Unavailable +[phone] Jayla Plaza RN Unavailable +[phone] Jaimie [...] Unavailable +[phone] Dom Eason MD Unavailable +[phone] Wagner Oliver MD Unavailable +[phone] Laura Epperson NP Unavailable +[phone] Thom Taveras MD Unavailable +[phone] Joesph Crowe MD Unavailable +[phone] Joesph Crowe MD Unavailable +[phone] Adonay Haq MD Unavailable +[phone] Denilson Srinivasan MD Unavailable + [phone] Jason Alvares MD Unavailable Ruth Riddle DPM, Podiatry /Foot and Ankle Surgery Unavailable Omar Carmona MD Primary Care Provider +[phone] Jignesh Mathias MD Unavailable Adonay Haq MD Unavailable +1- Omar Carmona MD Unavailable +[phone] Jason Alvares MD Unavailable Jignesh Mathias MD Unavailable Ayad Lopez PhD LP Unavailable +[phone] Gavi Nieto PA-C Unavailable [phone] Reason for Visit * Reason Onset Date Comments Clinic Care Coordination - Follow-up 10/12/2022 Encounter Details Date Type Department Care Team (Latest Contact Info) Description 10/12/2022 MyC Medical Advice [address] [address] October, Denilson Jackson MD [address] [facility] [address] [place] [address] Clinic Care Coordination - Follow-up [...] Answer Date Recorded PHQ-2 Score 2 08/12/2022 [facility] - Occupational Stress Questionnaire Answer Date [...] No 08/27/2021 Housing Stability Vital Sign Answer Emri e Recorded In the last 12 months, [...] Sex Assigned at Female 09/12/2020 12:05 PM ORCHARD HAND Legal Sex Female 3:26 AM ORCHARD HAND Gender Identity Female 09/12/2020 12:05 PM ORCHARD HAND Sexual Orientation Straight 12/19/2021 10 :44 [...] Coronavirus/COVID-19? No / Unsure 10/06/2022 12:20 PM ORCHARD HAND documented as of this encounter Plan of Treatment Upcoming Encounters Date Type Department Care Team (Late st Contact Info) Description 06/13/2025 6:00 PM ORCHARD HAND Ancillary Procedure [facility] [address] 1st [place] [phone] Omar Carmona MD [address] [place] [address] 843385 06/14/2025 4:00 PM ORCHARD HAND Office Visit [facility] [address] 4th [place] [phone] Omar Carmona MD [address] [place] [address] 934845 06/15/2025 12:45 PM ORCHARD HAND Therapy Visit [facility] [address] [phone] Jason Alvares MD 420 [facility] 295 [place], [place] 740055 Chaya Castillo, OTR [facility] 150 [place] [address] 06/19/2025 10:30 AM ORCHARD HAND Virtual Visit [facility] [address] [place] [address] 4th [place] [phone] Omar Carmona MD [address] [place] [address] 778895 Gerson Santos, [facility] 06/26/2025 11:00 AM ORCHARD HAND Therapy Visit [address] [phone] Jason Alvares MD [address] [place] [address] 342335 Chaya Castillo OTR [facility] 150 [place] [address] 07/09/2025 12:45 PM ORCHARD HAND Therapy Visit [facility] 150 [place] [phone] Jason Alvares MD [address] [place] [address] 374475 Chaya Castillo, OTR [facility] 150 [place] [address] 07/18/2025 3:00 PM ORCHARD HAND Office Visit [facility] [address] [phone] Adonay Chapman APRN [address] 644685 11/05/2025 12:30 PM CDT Lab [facility] [place] [address] [place] [address] 1st [place] [phone] 11/05/2025 1:45 PM CDT Office Visit [facility] [address] 3rd [place] [phone] Gavi Nieto PA-C Dermatology [address] [place] [address] 11/20/2025 10:30 AM CDT Virtual Visit [address] [place] [address] Marquise Hanley MD [address] [place] [address]26 documented as of this encounter Goals Goal [...] documented as of this encounter Care Teams Macerator Operator Relationship Specialty Start Date End Date Rio Jaquez MD [address] [place] [address] 4 [place] [address] PCP - General Family Practice 12/02/10 07/13/24 Omar Carmona MD [address] [place] [address] 48701 PCP - General Family Medicine 07/14/24 Barry Kilpatrick MD [address] [place] [address] [id number] [place], [place] 937955 Neurology 07/19/14 Michelle Henderson I, RN Nurse Coordinator Neurology 07/19/14 Rio Jaquez MD [address] [place] [address] FL 4 [place], [place] 936855 Family Practice 10/15/14 Jemima Jaramillo MD cut off tender glass 11/20/14 Kelley Chin RN [address] [phone] Nurse Coordinator Cardiology 11/04/15 Sydnee Saleem MD 420 [facility] 508 [place], [place] 957925 Cardiology 11/04/15 Karlene Moya MD 6 [place], [place] 175685 Ophthalmology 06/24/17 Wilbert Quintero, OD [address] [place] [address] 567915 Optometry 06/24/17 Rod Gauthier DPM [address] [place] [address] 144355 Laborer Primary Podiatric Medicine 06/21/18 Nallely Hogue, RN Registered Nurse 02/20/19 11/23/22 Jan Mahmood MD 516 [facility] 2A [place] [address] Gastroenterology 11/05/20 Brandt Quintana MD 1414 [place] [address] Resident 11/05/20 Jan Mahmood MD 516 [facility] 2A [place] [address] Assigned Gastroenterology Provider 12/01/20 Rio Jaquez MD 909 [facility] 4 [place] [address] Assigned PCP 11/17/20 09/30/24 Dom Eason MD 717 [facility] 353 [place] [address] Internal Medicine 12/02/20 Jayla Plaza, RN Specialty Branch Library Clerk Hepatology 01/09/21 02/13/24 Jaimie [place], RN Specialty Branch Library Clerk Cardiology 10/28/21 Ruth Riddle, DPM, Podiatry/Foot and Ankle Surgery [address] [place] [address] [address] Assigned Musculoskeletal Provider 11/30/21 09/30/23 Marquise Hanley MD 909 [place] [address] Endocrinology, Diabetes, and Metabolism 03/05/22 Vlad Ramey MD [address] [place] [address]695 Cardiovascular Disease 05/07/22 Joesph Crowe MD [address] [place] [address] 9[address] Surgery 05/07/22 Luis Arrington MD [address] [place] [address] 51826 Assigned Neuroscience Provider 05/16/22 05/14/23 Michelle Padilla RN Specialty Branch Library Clerk Cardiology 07/03/22 Vlad Ramey MD [address] [place] [address] 88674 Assigned Heart and Vascular Provider 07/25/22 05/28/23 Marquise Hanley MD [address] [place] [address] Assigned Endocrinology Provider 08/15/22 Dom Eason MD 7 [facility] 353 [place] [address] Assigned Nephrology Provider 11/28/22 02/19/23 Wagner Oliver MD [address] [place] [address] Critical Care 12/15/22 Laura Epperson, LULU 717 [facility] 1932 [place] [address] Assigned Nephrology Provider 02/20/23 08/30/24 Thom Taveras MD [facility] [address] [place] [address] Assigned Cancer Care Provider 02/06/23 08/20/23 Joesph Crowe MD [address] [place] [address]270 MD Surgery 03/17/23 Joesph Crowe MD [address] [place] [address] 891635 Assigned Surgical Provider 04/03/23 09/30/24 Adonay Haq MD [address] [place] [address] 909445 Internal Medicine 06/14/23October, Denilson Jackson MD [address] [facility] [address] [place], [place] 203625 Assigned Heart and Vascular Provider 05/29/23 11/28/24 Jason Alvares MD [address] [place] [address] 295 [place], [place] 050145 Assigned Neuroscience Provider 05/15/23 11/28/24 Ruth Riddle DPM, Podiatry/Foot and Ankle Surgery [address] 300 [place], [place] 786727 Assigned Musculoskeletal Provider 10/22/23 Jignesh Mathias MD [address] [place] [address] 848475 Gastroenterology 09/25/24 Adonay Haq MD [address] [place] [address] 55455 Assigned PCP 10/01/24 12/28/24 Omar Carmona MD [address] [place] [address] Assigned PCP 12/29/24 Jason Alvares MD [address] [place] [address] Assigned Neuroscience Provider 12/29/24 Jignesh Mathias MD [address] [place] [address] 233825 Assigned Surgical Provider 12/29/24 Ayad Lopez, PhD LP [address] [place] [address] 052755 Assigned Behavioral Health Provider 02/28/25 Gavi Nieto, PA-C [address] [place] [address] [phone] Physician Assembler Musical Equipment Dermatology 03/19/25 documented as of this encounter
--- OUTSIDE RECORDS SUMMARY | 2025-06-10 11:30 | XMS_ITS | Encounter Summary ---
Author Organization [facility] Address [address] [place] [address] 98166 Care Team Providers Care Storage Garage Attendant Name Role Phone Barry Kilpatrick MD Unavailable Michelle Henderson RN Unavailable [phone] Rio Jaquez MD Unavailable +[phone] Jemima Jaramillo MD Unavailable Unavai Kelley Bautista RN Unavailable +[phone] Sydnee Saleem MD Unavailable +[phone] Karlene Moya MD Unavailable +[phone] Wilbert Quintero OD Unavailable +[phone] Rod Gauthier DPM Unavailable [phone] Jan Mahmood MD Unavailable +[phone] Brandt Quintana MD Unavailable [phone] Jan Mahmood MD Unavailable +[phone] Dom Eason MD Unavailable +[phone] Jaimie Vernon RN Unavailable Unavailable Marquise Hanley MD Unavailable +[phone] Vlad Ramey MD Unavailable +[phone] Joesph Crowe MD Unavailable Michelle Padilla RN Unavailable Unavaila ble Marquise Hanley MD Unavailable +[phone] Wagner Oliver MD Unavailable [phone] Joesph Crowe MD Unavailable Adonay Haq MD Unavailable Ruth Riddle DPM, Podiatry /Foot and Ankle Surgery Unavailable Omar Carmona MD Primary Care Provider [phone] Jignesh Mathias MD Unavailable Omar Carmona MD Unavailable Jason Alvares MD Unavailable Jignesh Mathias MD Unavailable Ayad Lopez PhD LP Unavailable Gavi Nieto PA-C Unavailable [phone] Encounter Details Date Type Department Care Team (Late st Contact Info) Description 06/06/2025 Results Follow-Up [facility]ology Clinic [address] [address] Jignesh Mathias MD [address] [place] [address] Subj: Message about your results Social [...] Answer Date Recorded PHQ-2 Score 2 05/03/2025 [facility] of Occupat ional Health - [...] Sex Assigned at Female 09/12/2020 12:05 PM BOARD WORKER Legal Sex Female 3:26 AM BOARD WORKER Gender Identity Female 09/12/2020 12:05 PM BOARD WORKER Sexual Orientation Straight 12/19/2021 10 :44 AM CDT Occupation Industry Job Start Date Job End Date on disability for FMS Not on file Not on file Not on file disabled Not on file Not on file Not on file documented as of this encounter Plan of Treatment Upcoming Encounters Date Type Department Care Team (Late st Contact Info) Description 06/13/2025 6:00 PM BOARD WORKER Ancillary Procedure [facility] [address]st [place] [phone] Omar Carmona MD [address] [address] 02161 06/14/2025 4:00 PM BOARD WORKER Office Visit [facility] [address] 4th [place] [phone] Omar Carmona MD [address] [address] 220[address] 06/15/2025 12:45 PM BOARD WORKER Therapy Visit [facility] Services [address] [phone] Jason Alvares MD [address] [place] [address] 295 [place], [place] 244675 Chaya Castillo OTR [facility] 150 [place] [address] 06/19/2025 10:30 AM BOARD WORKER Virtual Visit [facility] Primary Care [address] [place] [phone] Omar Carmona MD [address] [address] [phone] Gerson Santos, [facility] 06/26/2025 11:00 AM BOARD WORKER Therapy Visit [address] [phone] Jason Alvares MD [address] [place] [address] 691965 Chaya Castillo, OTR [address] [address] 07/09/2025 12:45 PM BOARD WORKER Therapy Visit [address] [phone] Jason Alvares MD [address] [place] [address] 685555 Cahya Castillo OTR [address] [address] 07/18/2025 3:00 PM BOARD WORKER Office Visit [facility] [address] [phone] Adonay Chapman APRN [facility] 500 [place], [place] 241095 11/05/2025 12:30 PM CDT Lab [facility] Lab [address] [place] [phone] 11/05/2025 1:45 PM CDT Office Visit [facility] Dermatology Clinic [address] [place] [phone] Gavi Nieto PA-C Dermatology [address] [place] [address] 11/20/2025 10:30 AM CDT Virtual Visit [address] [phone] Marquise Hanley MD [address] [place] [address] documented as of this encounter Goals Goal [...] documented as of this encounter Care Teams Storage Garage Attendant Relationship Specialty Start Date End Date Omar Carmona MD [address] [address] 53433 PCP - General Family Medicine 07/14/24 Barry Kilpatrick MD [address] [place] [address] [id number] [place] [address] Neurology 07/19/14 Michelle Henderson I, TANIA Nurse Coordinator Neurology 07/19/14 Rio Jaquez MD [address] [place] [address] FL 4 [place] [address] Family Practice 10/15/14 Jemima Jaramillo MD 9 [facility] [place] 4 [place] [address] manager distribution center 11/20/14 Kelley Chin, TANIA [facility] 909 [place] [address] Nurse Coordinator Cardiology 11/04/15 Sydnee Saleem MD [address] [place] [address] 508 [place], [place] 669205 Cardiology 11/04/15 Karlene Moya MD [address] [place] [address] 400345 Ophthalmology 06/24/17 Wilbert Quintero OD [address] [place] [address] 940985 Optometry 06/24/17 Rod Gauthier DPM [address] [place] [address] 372435 Forest Fire Equipment Operator Primary Podiatric Medicine 06/21/18 Jan Mahmood MD [address] [place] [address] 2[address] [place] [address] Gastroenterology 11/05/20 Bradnt Quintana MD [address] [place] [address] Resident 11/05/20 Jan Mahmood MD [address] [place] [address] 2[address] [place] [address] Assigned Gastroenterology Provider 12/01/20 Dom Eason MD [address] [place] [address] Internal Medicine 12/02/20 Jaimie Vernon, RN Specialty Corporate Planner Cardiology 10/28/21 Marquise Hanley MD [address] [place] [address] Endocrinology, Diabetes, and Metabolism 03/05/22 Vlad Ramey MD [address] [place] [address] 32729 Cardiovascular Disease 05/07/22 Joesph Crowe MD [address] [place] [address] 18976 MD Surgery 05/07/22 Michelle Padilla, RN Specialty Corporate Planner Cardiology 07/03/22 Marquise Hanley MD [address] [place] [address] 18034 Assigned Endocrinology Provider 08/15/22 Wagner Oliver MD [address] [place] [address] Critical Care 12/15/22 Joesph Crowe MD [address] [place] [address] 87498 Surgery 03/17/23 Adonay Haq MD [address] [place] [address] 31385 Internal Medicine 06/14/23 Ruth Riddle DPM, Podiatry/Foot and Ankle Surgery [address] [place] [address] [address] Assigned Musculoskeletal Provider 10/22/23 Jignesh Mathias MD [address] [place] [address] Gastroenterology 09/25/24 Omar Carmona MD [address] [place] [address] 885445 Assigned PCP 12/29/24 Jason Alvares MD [address] [place] [address] 458365 Assigned Neuroscience Provider 12/29/24 Jignesh Mathias MD [address] [place] [address] 717295 Assigned Surgical Provider 12/29/24 Ayad Lopez, PhD LP [address] [place] [address] 732645 Assigned Behavioral Health Provider 02/28/25 Gavi Nieto PANavinC [address] [place] [address] 135055 Physician Green Pipefitter Dermatology 03/19/25 documented as of this encounter
--- OUTSIDE RECORDS SUMMARY | 2025-06-10 11:31 | XMS_ITS | Encounter Summary ---
Author Organization [facility] Address [address] [place] [address] Care Team Providers Care Director Auto Name Role Phone Barry Kilpatrick MD Unavailable Michelle Henderson RN Unavailable [phone] Rio Jaquez MD Unavailable +[phone] Jemima Jaramillo MD Unavailable Unavai Kelley Bautista RN Unavailable [phone] Sydnee Saleem MD Unavailable +[phone] Karlene Moya MD Unavailable +[phone] Wilbert Quintero OD Unavailable +[phone] Rod Gauthier DPM Unavailable +[phone] Jan Mahmood MD Unavailable +[phone] Brandt Quintana MD Unavailable Jan Mahmood MD Unavailable +[phone] Dom Eason MD Unavailable +[phone] Jaimie Vernon RN Unavailable Unavailable Marquise Hanley MD Unavailable +[phone] Vlad Ramye MD Unavailable +[phone] Joesph Crowe MD Unavailable [phone] Michelle Padilla RN Unavailable Unavaila ble Marquise Hanley MD Unavailable +[phone] Wagner Oliver MD Unavailable + [phone] Joesph Crowe MD Unavailable +[phone] Adonay Haq MD Unavailable [phone] Ruth RiddleM, Podiatry /Foot and Ankle Surgery Unavailable Omar Carmona MD Primary Care Provider [phone] Jignesh Mathias MD Unavailable Omar Carmona MD Unavailable +[phone] Jason Alvares MD Unavailable Jignesh Mathias MD Unavailable Ayad Lopez PhD LP Unavailable +[phone] Gavi Nieto PA-C Unavailable +[phone] Encounter Details Date Type Department Care Team [...] PHQ-2 Score 2 05/03/2025 [facility] [place] of Occupat ional Health - Occupational Stress [...] Sex Assigned at Female 09/12/2020 12:05 PM SECOND CUTTER Legal Sex Female 3:26 AM SECOND CUTTER Gender Identity Female 09/12/2020 12:05 PM SECOND CUTTER Sexual Orientation Straight 12/19/2021 10 :44 AM CDT Occupation Industry Job Start Date Job End Date on disability for FMS Not on file Not on file Not on file disabled Not on file Not on file Not on file documented as of this encounter Plan of Treatment Upcoming Encounters Date Type Department Care Team (Late st Contact Info) Description 06/13/2025 6:00 PM SECOND CUTTER Ancillary Procedure [facility] Imaging Center CT Clinic [address] [phone] Omar Carmona MD [address] [place] [address] [phone] 06/14/2025 4:00 PM SECOND CUTTER Office Visit [facility] Primary Care Clinic [address] [address] Omar Carmona MD [address] [place] [address] 30985455 06/15/2025 12:45 PM SECOND CUTTER Therapy Visit [facility] Rehabilitation Services [address] [phone] Jason Alvares MD 420 [facility] 295 [place], [place] [phone] Chaya Castillo, OTR [facility] 150 [place] [address] 06/19/2025 10:30 AM SECOND CUTTER Virtual Visit [facility] Primary Care [address] [address] Omar Carmona MD [address] [place] [address] 453645 Gerson Santos RPH 06/26/2025 11:00 AM SECOND CUTTER [facility] [address] [facility] [place] [address] Jason Alvares MD [address] [place] [address] Chaya Castillo, OTR [facility] 150 [place] [address] 07/09/2025 12:45 PM SECOND CUTTER Therapy Visit [facility] 150 [place] [address] Jason Alvares MD [address] [place] [address] Chaya Castillo OTR [facility] 150 [place] [address] 07/18/2025 3:00 PM SECOND CUTTER Office Visit [facility] Heart [address] [phone] Adonay Chapman APRN [address] [address] 11/05/2025 12:30 PM CDT Lab [facility] Lab [address] [place] [address] 11/05/2025 1:45 PM CDT Office Visit [facility] Dermatology Clinic [address] 3rd [place] [phone] Gavi Nieto PA-C Dermatology [address] [place] [address] 11/20/2025 10:30 AM CDT Virtual Visit M [address] [address] Marquise Hanley MD [address] [place] [address]956 documented as of this encounter Goals Goal [...] as of this encounter Care Teams Director Auto Relationship Specialty Start Date End Date Omar Carmona MD [address] [place] [address] 73939 PCP - General Family Medicine 07/14/24 Barry Kilpatrick MD [address] [place] [address] [id number] [place] [address] Neurology 07/19/14 Michelle Henderson RN Nurse Coordinator Neurology 07/19/14 Rio Jaquez MD [address] [place] [address] 71260 Family Practice 10/15/14 Jemima Jaramillo MD [address] [place] [address] 03456 automobile repair service estimator 11/20/14 Kelley Chin, TANIA [address] [address] Nurse Coordinator Cardiology 11/04/15 Sydnee Saleem MD 420 [facility] 508 [place] [address] Cardiology 11/04/15 Karlene Moya MD 516 [place], [place] 228555 Ophthalmology 06/24/17 Wilbert Quintero OD 909 [place], [place] 986375 Optometry 06/24/17 Rod Gauthier DPM 909 [place], [place] 016315 Acds Block 1 Operator Primary Podiatric Medicine 06/21/18 Jan Mahmood MD [address] [place] [address] 2A [place], [place] 655305 Gastroenterology 11/05/20 Brandt Quintana MD [address] [place] [address] Resident 11/05/20 Jan Mahmood MD [address] [address] Assigned Gastroenterology Provider 12/01/20 Dom Eason MD 717 [facility] 353 [place] [address] Internal Medicine 12/02/20 Jaimie Vernon, RN Specialty Senior Data Scientist Cardiology 10/28/21 Marquise Hanley MD [address] [place] [address] Endocrinology, Diabetes, and Metabolism 03/05/22 Vlad Ramey MD [address] [place] [address] 43566 Cardiovascular Disease 05/07/22 Joesph Crowe MD [address] [place] [address] 88029 Surgery 05/07/22 Michelle Padilla RN Specialty Senior Data Scientist Cardiology 07/03/22 Marquise Hanley MD [address] [place] [address] 28532 Assigned Endocrinology Provider 08/15/22 Wagner Oliver MD [address] [place] [address] Critical Care 12/15/22 Joesph Crowe MD [address] [place] [address] 77037 Surgery 03/17/23 Adonay Haq MD [address] [place] [address] 8[address] Internal Medicine 06/14/23 Ruth Riddle DPM, Podiatry/Foot and Ankle Surgery [address] [place] 236997 Assigned Musculoskeletal Provider 10/22/23 Jignesh Mathias MD [address] [place] [address] 586155 Gastroenterology 09/25/24 Omar Carmona MD [address] [place] [address] 119215 Assigned PCP 12/29/24 Jason Alvares MD [address] [place] [address] [phone] Assigned Neuroscience Provider 12/29/24 Jignesh Mathias MD [address] [place] [address] [phone] Assigned Surgical Provider 12/29/24 Ayad Lopez, PhD LP [address] [place] [address] 898035 Assigned Behavioral Health Provider 02/28/25 Gavi Nieto, PA-C [address] [place] [address] 456005 Physician Lawn Care Specialist Dermatology 03/19/25 documented as of this encounter
--- OUTSIDE RECORDS SUMMARY | 2025-06-10 11:31 | XMS_ITS | Encounter Summary ---
Author Organization [place] Address [address] [place] [address] Care Team Providers Care Clinical Statistical Programmer Name Role Phone Barry Kilpatrick MD Unavailable Michelle Henderson RN Unavailable [phone] Rio Jaquez MD Unavailable +[phone] Jemima Jaramillo MD Unavailable Unavai Kelley Bautista RN Unavailable +[phone] Sydnee Saleem MD Unavailable +[phone] Karlene Moya MD Unavailable +[phone] Wilbert Quintero OD Unavailable +[phone] Rod Gauthier DPM Unavailable +[phone] Jan Mahmood MD Unavailable +[phone] Brandt Quintana MD Unavailable Jan Mahmood MD Unavailable +[phone] Dom Eason MD Unavailable +[phone] Jaimie Vernon RN Unavailable Unavailable Marquise Hanley MD Unavailable +[phone] Vlad Ramey MD Unavailable +[phone] Joesph Crowe MD Unavailable +[phone] Michelle Padilla RN Unavailable Unavaila ble Marquise Hanley MD Unavailable +[phone] Wagner Oliver MD Unavailable + [phone] Joesph Crowe MD Unavailable +[phone] Adonay Haq MD Unavailable [phone] Ruth RiddleM, Podiatry /Foot and Ankle Surgery Unavailable Omar Carmona MD Primary Care Provider [phone] Jignesh Mathias MD Unavailable Omar Carmona MD Unavailable +[phone] Jason Alvares MD Unavailable Jignesh Mathias MD Unavailable Ayad Lopez PhD LP Unavailable +[phone] Gavi Nieto PA-C Unavailable +[phone] Encounter Details Date Type Department Care Team [...] Recorded PHQ-2 Score 2 05/03/2025 [facility] of Occupat ional Health - Occupational Stress [...] in an overnight penitentiary, or couch-surfing.) Yes 04/30/2025 Are you worried [...] Sex Assigned at Female 09/12/2020 12:05 PM STATISTICAL MACHINE SERVICER Legal Sex Female 3:26 AM STATISTICAL MACHINE SERVICER Gender Identity Female 09/12/2020 12:05 PM STATISTICAL MACHINE SERVICER Sexual Orientation Straight 12/19/2021 10 [...] st Contact Info) Description 06/13/2025 6:00 PM STATISTICAL MACHINE SERVICER Ancillary Procedure [facility] [address] [phone] Omar Carmona MD [address] [place] [address] [id number] 06/14/2025 4:00 PM STATISTICAL MACHINE SERVICER Office Visit [facility] [address] [address] Omar Carmona MD [address] [place] [address] [phone] 06/15/2025 12:45 PM STATISTICAL MACHINE SERVICER Therapy Visit [facility] [address] [phone] Jason Alvares MD 420 [facility] 295 [place], [place] [phone] Chaya Castillo, OTR [facility] 150 [place] [address] 06/19/2025 10:30 AM STATISTICAL MACHINE SERVICER Virtual Visit [facility] [address] [address] Omar Carmona MD [address] [place] [address] [phone] Gerson Santos RPH 06/26/2025 11:00 AM STATISTICAL MACHINE SERVICER Therapy Visit [facility] [address] [facility] [place] [address] Jason Alvares MD [address] [place] [address] Chaya Castillo, OTR [facility] 150 [place] [address] 07/09/2025 12:45 PM STATISTICAL MACHINE SERVICER Therapy Visit [facility] 150 [place] [address]464514 Jason Alvares MD [address] [place] [address] Chaya Castillo OTR [facility] 150 [place] [address] 07/18/2025 3:00 PM STATISTICAL MACHINE SERVICER Office Visit [facility] [address] [phone] Adonay Chapman APRN [address] [address] 11/05/2025 12:30 PM CDT Lab [facility] [address] 1st [place] [phone] 11/05/2025 1:45 PM CDT Office Visit [facility] [address] 3rd [place] [phone] Gavi Nieot PA-C Dermatology [address] [place] [address] 11/20/2025 10:30 AM CDT Virtual Visit M [address] [address] Marquise Hanley MD [address] [place] [address] 8[address] documented as of this encounter Goals Goal [...] as of this encounter Care Teams Clinical Statistical Programmer Relationship Specialty Start Date End Date Omar Carmona MD [address] [place] [address] 40365 PCP - General Family Medicine 07/14/24 Barry Kilpatrick MD [address] [place] [address] [id number] [place] [address] Neurology 07/19/14 Michelle Henderson RN Nurse Coordinator Neurology 07/19/14 Rio Jaquez MD [address] [place] [address] 43533 Family Practice 10/15/14 Jemima Jaramillo MD [address] [place] [address] 99198 steel finisher 11/20/14 Kelley Chin, TANIA [address] [address] Nurse Coordinator Cardiology 11/04/15 Sydnee Saleem MD 420 [facility] 508 [place] [address] Cardiology 11/04/15 Karlene Moya MD 516 [place], [place] 889795 Ophthalmology 06/24/17 Wilbert Quintero OD 909 [place], [place] 853065 Optometry 06/24/17 Rod Gauthier DPM 909 [place], [place] 068325 Prevention Coordinator Primary Podiatric Medicine 06/21/18 Jan Mahmood MD [address] [place] [address] 2A [place], [place] 380735 Gastroenterology 11/05/20 Brandt Quintnaa MD [address] [place] [address] Resident 11/05/20 Jan Mahmood MD [address] [address] Assigned Gastroenterology Provider 12/01/20 Dom Eason MD 717 [facility] 353 [place] [address] Internal Medicine 12/02/20 Jaimie Vernon, RN Specialty Glove Boarder Cardiology 10/28/21 Marquise Hanley MD [address] [place] [address] Endocrinology, Diabetes, and Metabolism 03/05/22 Vlad Ramey MD [address] [place] [address] 097[address] Cardiovascular Disease 05/07/22 Joesph Crowe MD [address] [place] [address] 07181 Surgery 05/07/22 Michelle Padilla RN Specialty Glove Boarder Cardiology 07/03/22 Marquise Hanley MD [address] [place] [address] 29767 Assigned Endocrinology Provider 08/15/22 Wagner Oliver MD [address] [place] [address] Critical Care 12/15/22 Joesph Crowe MD [address] [place] [address] 44396 Surgery 03/17/23 Adonay Haq MD [address] [place] [address] 6[address] Internal Medicine 06/14/23 Ruth Riddle DPM, Podiatry/Foot and Ankle Surgery [address] [place] 23[address]77 Assigned Musculoskeletal Provider 10/22/23 Jignesh Mathias MD [address] [place] [address] 106205 Gastroenterology 09/25/24 Omar Carmona MD [address] [place] [address] [phone] Assigned PCP 12/29/24 Jason Alvares MD [address] [place] [address] [phone] Assigned Neuroscience Provider 12/29/24 Jignesh Mathias MD [address] [place] [address] [phone] Assigned Surgical Provider 12/29/24 Ayad Lopez, PhD LP [address] [place] [address] 744815 Assigned Behavioral Health Provider 02/28/25 Gaiv Nieto, PA-C [address] [place] [address] 026095 Physician Pulp Machine Operator Dermatology 03/19/25 documented as of this encounter
--- OUTSIDE RECORDS SUMMARY | 2025-06-10 11:31 | XMS_ITS | Encounter Summary ---
Author Organization [place] Address [address] [place] [address] Care Team Providers Care Barbecue Cook Name Role Phone Barry Kilpatrick MD Unavailable Michelle Henderson RN Unavailable [phone] Rio Jaquez MD Unavailable +[phone] Jemima Jaramillo MD Unavailable Unavai Kelley Bautista RN Unavailable +[phone] Sydnee Saleem MD Unavailable [phone] Karlene Moya MD Unavailable +[phone] Wilbert Quintero OD Unavailable +[phone] Rod Gauthier DPM Unavailable [phone] Jan Mahmood MD Unavailable +[phone] Brandt Quintana MD Unavailable Jan Mahmood MD Unavailable [phone] Dom Eason MD Unavailable +[phone] Jaimie Vernon RN Unavailable Unavailable Marquise Hanley MD Unavailable +[phone] Vlad Ramey MD Unavailable +[phone] Joesph Crowe MD Unavailable [phone] Michelle Padilla RN Unavailable Unavaila ble Marquise Hanley MD Unavailable +[phone] Wagner Oliver MD Unavailable +[phone] Joesph Crowe MD Unavailable +[phone] Adonay Haq MD Unavailable [phone] Ruth Riddle DPM, Podiatry /Foot and Ankle Surgery Unavailable Omar Carmona MD Primary Care Provider [phone] Jignesh Mathias MD Unavailable Omar Carmona MD Unavailable [phone] Jason Alvares MD Unavailable Jignesh Mathias MD Unavailable Ayad Lopez PhD LP Unavailable [phone] Gavi Nieto PA-C Unavailable [phone] Encounter Details Date Type Department Care Team (Late st Contact Info) Description 05/28/2025 [facility] Medical Advice [address] [phone] Chaya Castillo OTR [facility] [address] [phone] Social History Tobacco Use Types Packs/Day Years [...] Answer Date Recorded PHQ-2 Score 2 05/03/2025 [facility] of Occupat ional Health - Occupational Stress [...] Sex Assigned at Female 09/12/2020 12:05 PM SALSA DANCE INSTRUCTOR Legal Sex Female 3:26 AM SALSA DANCE INSTRUCTOR Gender Identity Female 09/12/2020 12:05 PM SALSA DANCE INSTRUCTOR Sexual Orientation Straight 12/19/2021 10 :44 AM CDT Occupation Industry Job Start Date Job End Date on disability for FMS Not on file Not on file Not on file disabled Not on file Not on file Not on file documented as of this encounter Plan of Treatment Upcoming Encounters Date Type Department Care Team (Late st Contact Info) Description 06/13/2025 6:00 PM SALSA DANCE INSTRUCTOR Ancillary Procedure [facility] Clinic [address] [phone] Omar Carmona MD [address] [place] [address] 205035 06/14/2025 4:00 PM SALSA DANCE INSTRUCTOR Office Visit [facility] Care [address] [phone] Omar Carmona MD [address] [place] [address] 298[address] 06/15/2025 12:45 PM SALSA DANCE INSTRUCTOR Therapy Visit [facility] [address] [phone] Jason Alvares MD [address] [place] [address] 295 [place], [place] 560765 Chaya Castillo, [facility] 150 [place] [address] 06/19/2025 10:30 AM SALSA DANCE INSTRUCTOR Virtual Visit [facility] [address] 4th [place] [phone] Omar Carmona MD [address] [place] [address] 661645 Gerson Santos, FARZAD 06/26/2025 11:00 AM SALSA DANCE INSTRUCTOR Therapy Visit [facility] 150 [place] [phone] Jason Alvares MD [address] [place] [address] 876915 Chaya Castillo, OTR [address] [address] 07/09/2025 12:45 PM SALSA DANCE INSTRUCTOR Therapy Visit [address] [phone] Jason Alvares MD [address] [place] [address] 087125 Chaya Castillo OTMari [address] [address] 07/18/2025 3:00 PM SALSA DANCE INSTRUCTOR Office Visit [facility] [address] [phone] Adonay Chapman APRN [address] 472435 11/05/2025 12:30 PM CDT Lab [facility] [address] 1st [place] [phone] 11/05/2025 1:45 PM CDT Office Visit [facility] [address] 3rd [place] [phone] Gavi Nieto PA-C Dermatology [address] [place] [address] 11/20/2025 10:30 AM CDT Virtual Visit [address] [address] Marquise Hanley MD [address] [place] [address] 17258 documented as of this encounter Goals Goal [...] documented as of this encounter Care Teams Barbecue Cook Relationship Specialty Start Date End Date Omar Carmona MD [address] [place] [address]83 PCP - General Family Medicine 07/14/24 Barry Kilpatrick MD [address] [place] [address] [id number] [place] [address] Neurology 07/19/14 Michelle Henderson I, RN Nurse Coordinator Neurology 07/19/14 Rio Jaquez MD [address] [place] [address] FL 4 [place] [address] Family Practice 10/15/14 Jemima Jaramillo MD 909 [facility] 4 [place] [address] plate former 11/20/14 Kelley Chin RN [facility] [address] [place] [address] 33668 Nurse Coordinator Cardiology 11/04/15 Sydnee Saleem MD [address] [place] [address] 508 [place], [place] 692455 Cardiology 11/04/15 Karlene Moya MD [address] [place] [address]455 Ophthalmology 06/24/17 Wilbert Quintero, OD [address] [place] [address] 441585 Optometry 06/24/17 Rod Gauthier DPM 9 [place], [place] 928305 Design Engineering Technician Primary Podiatric Medicine 06/21/18 Jan Mahmood MD [address] [place] [address] 2A [place] [address] Gastroenterology 11/05/20 Brandt Quintana MD [address] [place] [address] Resident 11/05/20 Jan Mahmood MD [address] [place] [address] 19041 Assigned Gastroenterology Provider 12/01/20 Dom Eason MD [address] [place] [address] Internal Medicine 12/02/20 Jaimie Vernon, RN Specialty Internal Combustion Engine Subassembler Cardiology 10/28/21 Marquise Hanley MD [address] [place] [address] 05757 Endocrinology, Diabetes, and Metabolism 03/05/22 Vlad Ramey MD [address] [place] [address] 65313 Cardiovascular Disease 05/07/22 Joesph Crowe MD [address] [place] [address] 03485 Surgery 05/07/22 Michelle Padilla, RN Specialty Internal Combustion Engine Subassembler Cardiology 07/03/22 Marquise Hanely MD [address] [place] [address] 11490 Assigned Endocrinology Provider 08/15/22 Wagner Oliver MD [address] [place] [address] Critical Care 12/15/22 Joesph Crowe MD [address] [place] [address] 59909 Surgery 03/17/23 Adonay Haq MD [address] [place] [address] 83915 Internal Medicine 06/14/23 Ruth Riddle DPM, Podiatry/Foot and Ankle Surgery [address] [place] [address] [place] [address]794 Assigned Musculoskeletal Provider 10/22/23 Jignesh Mathias MD [address] [place] [address] 009705 Gastroenterology 09/25/24 Omar Carmona MD [address] [place] [address] 121095 Assigned PCP 12/29/24 Jason Alvares MD [address] [place] [address] 323625 Assigned Neuroscience Provider 12/29/24 Jignesh Mathias MD [address] [place] [address] 045065 Assigned Surgical Provider 12/29/24 Ayad Lopez, PhD LP [address] [place] [address] 860875 Assigned Behavioral Health Provider 02/28/25 Gavi Nieto PANavinC [address] [place] [address] 136215 Physician Correctional Therapy Director Dermatology 03/19/25 documented as of this encounter
--- OUTSIDE RECORDS SUMMARY | 2025-06-10 11:31 | XMS_ITS | Encounter Summary ---
Author Organization [place] Address [address] [place] [address] 11927 Care Team Providers Care Seismograph Chief Name Role Phone Barry Kilpatrick MD Unavailable Michelle Henderson RN Unavailable [phone] Rio Jaquez MD Unavailable [phone] Jemima Jaramillo MD Unavailable Unavai Kelley Bautista RN Unavailable [phone] Sydnee Saleem MD Unavailable [phone] Karlene Moya MD Unavailable +[phone] Wilbert Quintero OD Unavailable +[phone] Rod Gauthier DPM Unavailable [phone] Jan Mahmood MD Unavailable [phone] Brandt Quintana MD Unavailable Jan Mahmood MD Unavailable +[phone] Dom Eason MD Unavailable +[phone] Jaimie Vernon RN Unavailable Unavailable Marquise Hanley MD Unavailable +[phone] Vlad Ramey MD Unavailable +[phone] Joesph Crowe MD Unavailable [phone] Michelle Padilla RN Unavailable Unavaila ble Marquise Hanley MD Unavailable Wagner Oliver MD Unavailable [phone] Joesph Crowe MD Unavailable Adonay Haq MD Unavailable Ruth Riddle DPM, Podiatry /Foot and Ankle Surgery Unavailable Omar Carmona MD Primary Care Provider Jignesh Mathias MD Unavailable Omar Carmona MD Unavailable [phone] Jason Alvares MD Unavailable Jignesh Mathias MD Unavailable Ayad Lopez PhD LP Unavailable Gavi Nieto PA-C Unavailable [phone] Encounter Details Date Type Department Care Team (Late st Contact Info) Description 05/16/2025 Results Follow-Up [facility] [address] [phone] Omar Carmona MD [address] [place] [address] Subj: Message about your results Social [...] Date Recorded PHQ-2 Score 2 05/03/2025 [facility] - Occupational [...] Sex Assigned at Female 09/12/2020 12:05 PM IVF EMBRYOLOGIST Legal Sex Female 3:26 AM IVF EMBRYOLOGIST Gender Identity Female 09/12/2020 12:05 PM IVF EMBRYOLOGIST Sexual Orientation Straight 12/19/2021 10 :44 AM CDT Occupation Industry Job Start Date Job End Date on disability for FMS Not on file Not on file Not on file disabled Not on file Not on file Not on file documented as of this encounter Plan of Treatment Upcoming Encounters Date Type Department Care Team (Late st Contact Info) Description 06/13/2025 6:00 PM IVF EMBRYOLOGIST Ancillary Procedure [facility] Clinic [address]st [place] [phone] Omar Carmona MD [address] [place] [address] 97[address] 06/14/2025 4:00 PM IVF EMBRYOLOGIST Office Visit [facility] Primary Care [address] 4th [place] [phone] Omar Carmona MD [address] [place] [address] 363535 06/15/2025 12:45 PM IVF EMBRYOLOGIST Therapy Visit [facility] Rehabilitation Services [address] [phone] Jason Alvares MD 420 [facility] 295 [place], [place] [address] Chaya Castillo OTR [facility] [address] [address] 06/19/2025 10:30 AM IVF EMBRYOLOGIST Virtual Visit [facility] [address] [place] [address] 4th [place] [phone] Omar Carmona MD [address] [place] [address] 893925 Gerson Santos, [facility] 06/26/2025 11:00 AM IVF EMBRYOLOGIST Therapy Visit [facility] 150 [place] [phone] Jason Alvarse MD [address] [place] [address] 801745 Chaya Castillo, OTR [address] [address] 07/09/2025 12:45 PM IVF EMBRYOLOGIST Therapy Visit [facility] 150 [place] [phone] Jason Alvares MD [address] [place] [address] 661065 Chaya Castillo, OTR [address] [address] 07/18/2025 3:00 PM IVF EMBRYOLOGIST Office Visit [facility] [address] [phone] Adonay Chapman APRN [address] 282395 11/05/2025 12:[address] [facility] [address] [place] [address] 11/05/2025 1:45 PM CDT Office Visit [facility] Dermatology Clinic [address]rd [place] [phone] Gavi Nieto PA-C Dermatology [address] [place] [address] 11/20/2025 10:30 AM CDT Virtual Visit [address] [place] [phone] Marquise Hanley MD [address] [place] [address] 50083 documented as of this encounter Goals Goal [...] documented as of this encounter Care Teams Seismograph Chief Relationship Specialty Start Date End Date Omar Carmona MD [address] [place] [address] PCP - General Family Medicine 07/14/24 Barry Kilpatrick MD [address] [place] [address] [id number] [place] [address] Neurology 07/19/14 Michelle Henderson I, RN Nurse Coordinator Neurology 07/19/14 Rio Jaquez MD [address] [place] [address] FL 4 [place] [address] Family Practice 10/15/14 Jemima Jaramillo MD 909 [facility] [address] 4 [place] [address] barrel charrer 11/20/14 Kelley Chin, [facility] 909 [place] [address] Nurse Coordinator Cardiology 11/04/15 Sydnee Saleem MD [address] [place] [address] 508 [place], [place] 197125 Cardiology 11/04/15 Karlene Moya MD [address] [place] [address] 877735 Ophthalmology 06/24/17 Wilbert Quintero, OD [address] [place] [address] 355145 Optometry 06/24/17 Rod Gauthier DPM 9 [place], [place] 288935 Shank Scourer Primary Podiatric Medicine 06/21/18 Jan Mahmood MD [address] [place] [address] 2A [place] [address] Gastroenterology 11/05/20 [place] [address] [place] [address]55 Resident 11/05/20 Jan Mahmood MD [address] [place] [address] 2A [place] [address] Assigned Gastroenterology Provider 12/01/20 Dom Eason MD [address] [place] [address] 97081 Internal Medicine 12/02/20 Jaimie Vernon, RN Specialty Realtime Court Reporter Cardiology 10/28/21 Marquise Hanley MD [address] [place] [address]11 Endocrinology, Diabetes, and Metabolism 03/05/22 Vlad Ramey MD [address] [place] [address] 50026 Cardiovascular Disease 05/07/22 Joesph Crowe MD [address] [place] [address] 94187 MD Surgery 05/07/22 Michelle Padilla, RN Specialty Realtime Court Reporter Cardiology 07/03/22 Marquise Hanley MD [address] [place] [address] 89411 Assigned Endocrinology Provider 08/15/22 Wagner Oliver MD [address] [place] [address] Critical Care 12/15/22 Joesph Crowe MD [address] [place] [address] 97376 Surgery 03/17/23 Adonay Haq MD [address] [place] [address] 72858 Internal Medicine 06/14/23 Ruth Riddle DPM, Podiatry/Foot and Ankle Surgery [address] [place] [place] [address] 33623 Assigned Musculoskeletal Provider 10/22/23 Jignesh Mathias MD [address] [place] [address] 26349 Gastroenterology 09/25/24 Omar Carmona MD [address] [place] [address] 149075 Assigned PCP 12/29/24 Jason Alvares MD [address] [place] [address] 677335 Assigned Neuroscience Provider 12/29/24 Jignesh Mathias MD [address] [place] [address] 521485 Assigned Surgical Provider 12/29/24 Ayad Lopez, PhD LP [address] [place] [address] 992175 Assigned Behavioral Health Provider 02/28/25 Gavi Nieto, PA-C [address] [place] [address] 773115 Physician Manufacturing Specialist Dermatology 03/19/25 documented as of this encounter
--- OUTSIDE RECORDS SUMMARY | 2025-06-10 11:31 | XMS_ITS | Encounter Summary ---
Author Organization [place] Address [address] [place] [address] Care Team Providers Care Behavioral Analyst Name Role Phone Barry Kilpatrick MD Unavailable Michelle Henderson RN Unavailable [phone] Rio Jaquez MD Unavailable +[phone] Jemima Jaramillo MD Unavailable Unavai Kelley Bautista RN Unavailable +[phone] Sydnee Saleem MD Unavailable +[phone] Karlene Moya MD Unavailable +[phone] Wilbert Quintero OD Unavailable +[phone] Rod Gauthier DPM Unavailable +[phone] Jan Mahmood MD Unavailable +[phone] Brandt Quintana MD Unavailable Jan Mahmood MD Unavailable +[phone] Dom Eason MD Unavailable +[phone] Jaimie Vernon RN Unavailable Unavailable Marquise Hanley MD Unavailable +[phone] Vlad Ramey MD Unavailable +[phone] Joesph Crowe MD Unavailable Michelle Padilla RN Unavailable Unavaila ble Marquise Hanley MD Unavailable +[phone] Wagner Oliver MD Unavailable + [phone] Joesph Crowe MD Unavailable +[phone] Adonay Haq MD Unavailable [phone] Ruth Riddle DPM, Podiatry /Foot and Ankle Surgery Unavailable Omar Carmona MD Primary Care Provider [phone] Jignesh Mathias MD Unavailable Omar Carmona MD Unavailable +[phone] Jason Alvares MD Unavailable Jignesh Mathias MD Unavailable Ayad Lopez PhD LP Unavailable +[phone] Gavi Nieto PA-C Unavailable +[phone] Encounter Details Date Type Department Care Team [...] Answer Date Recorded PHQ-2 Score 2 05/03/2025 [facility] [place] of Occupat ional Health - Occupational Stress [...] in an overnight custodial, or couch-surfing.) Yes 04/30/2025 Are you worried [...] Sex Assigned at Female 09/12/2020 12:05 PM WELL SERVICE DERRICK WORKER Legal Sex Female 3:26 AM WELL SERVICE DERRICK WORKER Gender Identity Female 09/12/2020 12:05 PM WELL SERVICE DERRICK WORKER Sexual Orientation Straight 12/19/2021 10 :44 AM CDT Occupation Industry Job Start Date Job End Date on disability for FMS Not on file Not on file Not on file disabled Not on file Not on file Not on file documented as of this encounter Plan of Treatment Upcoming Encounters Date Type Department Care Team (Late st Contact Info) Description 06/13/2025 6:00 PM WELL SERVICE DERRICK WORKER Ancillary Procedure [facility] Imaging Center [facility] Clinic [address] [phone] Omar Carmona MD [address] [place] [address] [id number] 06/14/2025 4:00 PM WELL SERVICE DERRICK WORKER Office Visit [facility] Primary Care Clinic [address] [address] Omar Carmona MD [address] [place] [address] [id number] 06/15/2025 12:45 PM WELL SERVICE DERRICK WORKER Therapy Visit [facility] Rehabilitation Services [address] [phone] Jason Alvares MD 420 [facility] 295 [place], [place] [phone] Chaya Castillo, OTR [facility] 150 [place] [address] 06/19/2025 10:30 AM WELL SERVICE DERRICK WORKER Virtual Visit [facility] Primary Care [address] [address] Omar Carmona MD [address] [place] [address] 105815 Gerson Santos RPH 06/26/2025 11:00 AM WELL SERVICE DERRICK WORKER Therapy [facility] [place] [address] Jason Alvares MD [address] [place] [address] Chaya Castillo, OTR [facility] 150 [place] [address] 07/09/2025 12:45 PM WELL SERVICE DERRICK WORKER Therapy Visit [facility] 150 [place] [address] Jason Alvares MD [address] [place] [address] Chaya Castillo OTR [facility] 150 [place] [address] 07/18/2025 3:00 PM WELL SERVICE DERRICK WORKER Office Visit [facility] Heart [address] [place] [address] [phone] Adonay Chapman APRN [address] [address] 11/05/2025 12:30 PM CDT Lab [facility] Lab [address] 1st [place] [phone] 11/05/2025 1:45 PM CDT Office Visit [facility] Dermatology Clinic [address] 3rd [place] [phone] Gavi Nieto PA-C Dermatology [address] [place] [address] 11/20/2025 10:30 AM CDT Virtual Visit M [address] [address] Marquise Hanley MD [address] [place] [address] 93182 documented as of this encounter Goals Goal [...] documented as of this encounter Care Teams Behavioral Analyst Relationship Specialty Start Date End Date Omar Carmona MD [address] [place] [address] 93087 PCP - General Family Medicine 07/14/24 Barry Kilpatrick MD [address] [place] [address] [id number] [place] [address] Neurology 07/19/14 Michelle Henderson RN Nurse Coordinator Neurology 07/19/14 Rio Jaquez MD [address] [place] [address] Family Practice 10/15/14 Jemima Jaramillo MD [address] [place] [address] 588[address] pulp drier 11/20/14 Kellye Chin, TANIA [address] [address] Nurse Coordinator Cardiology 11/04/15 Sydnee Saleem MD 420 [facility] 508 [place] [address] Cardiology 11/04/15 Karlene Moya MD 516 [place], [place] 549655 Ophthalmology 06/24/17 Wilbert Quintero OD 909 [place], [place] 558475 Optometry 06/24/17 Rod aGuthier DPM 909 [place], [place] 571375 Waste Management Specialist Primary Podiatric Medicine 06/21/18 Jan Mahmood MD [address] [place] [address] 2A [place], [place] 308685 Gastroenterology 11/05/20 Brandt Quintana MD [address] [place] [address] Resident 11/05/20 Jan Mahmood MD [address] [address] Assigned Gastroenterology Provider 12/01/20 Dom Eason MD 717 [facility] 353 [place] [address] Internal Medicine 12/02/20 Jaimie Vernon, RN Specialty Team Assembly Line Machine Operator Cardiology 10/28/21 Marquise Hanley MD [address] [place] [address] 08130 Endocrinology, Diabetes, and Metabolism 03/05/22 Vlad Ramey MD [address] [place] [address] 55774 Cardiovascular Disease 05/07/22 Joesph Crowe MD [address] [place] [address] 12565 Surgery 05/07/22 Michelle Padilla RN Specialty Team Assembly Line Machine Operator Cardiology 07/03/22 Marquise Hanley MD [address] [place] [address] 73932 Assigned Endocrinology Provider 08/15/22 Wagner Oliver MD [address] [place] [address] Critical Care 12/15/22 Joesph Crowe MD [address] [place] [address] 53024 Surgery 03/17/23 Adonay Haq MD [address] [place] [address] Internal Medicine 06/14/23 Ruth Riddle DPM, Podiatry/Foot and Ankle Surgery [address] [place] [phone] Assigned Musculoskeletal Provider 10/22/23 Jignesh Mathias MD [address] [place] [address] 118645 Gastroenterology 09/25/24 Omar Carmona MD [address] [place] [address] [phone] Assigned PCP 12/29/24 Jason Alvares MD [address] [place] [address] [phone] Assigned Neuroscience Provider 12/29/24 Jignesh Mathias MD [address] [place] [address] 256045 Assigned Surgical Provider 12/29/24 Ayad Lopez, PhD LP [address] [place] [address] [phone] Assigned Behavioral Health Provider 02/28/25 Gavi Nieto, PA-C [address] [place] [address] 800225 Physician Fish Flipper Dermatology 03/19/25 documented as of this encounter
--- OUTSIDE RECORDS SUMMARY | 2025-06-10 11:31 | XMS_ITS | Encounter Summary ---
Author Organization [facility] Address [address] [place] [address] Care Team Providers Care Anesthesia Assistant Name Role Phone Barry Kilpatrick MD Unavailable Michelle Henderson RN Unavailable [phone] Rio Jaquez MD Unavailable +[phone] Jemima Jaramillo MD Unavailable Unavai Kelley Bautista RN Unavailable +[phone] Sydnee Saleem MD Unavailable [phone] Karlene Moya MD Unavailable [phone] Wilbert Quintero OD Unavailable +[phone] Rod Gauthier DPM Unavailable +[phone] Jan Mahmood MD Unavailable +[phone] Brandt Quintana MD Unavailable Jan Mahmood MD Unavailable +[phone] Dom Eason MD Unavailable +[phone] Jaimie Vernno RN Unavailable Unavailable Marquise Hanley MD Unavailable +[phone] Vlad Ramey MD Unavailable +[phone] Joesph Crowe MD Unavailable Michelle Padilla RN Unavailable Unavaila ble Marquise Hanley MD Unavailable +[phone] Wagner Oliver MD Unavailable + [phone] Joesph Crowe MD Unavailable +[phone] Adonay Haq MD Unavailable [phone] Ruth RiddleM, Podiatry /Foot and Ankle Surgery Unavailable Omar Carmona MD Primary Care Provider [phone] Jignesh Mathias MD Unavailable Omar Carmona MD Unavailable +[phone] Jason Alvares MD Unavailable Jignesh Mathias MD Unavailable Ayad Lopez PhD LP Unavailable +[phone] Gavi Nieto PA-C Unavailable +[phone] Encounter Details Date Type Department Care Team [...] Answer Date Recorded PHQ-2 Score 2 05/03/2025 [facility] [place] of Occupat ional Health - Occupational Stress [...] Sex Assigned at Female 09/12/2020 12:05 PM ZIPPER MACHINE OPERATOR Legal Sex Female 3:26 AM ZIPPER MACHINE OPERATOR Gender Identity Female 09/12/2020 12:05 PM ZIPPER MACHINE OPERATOR Sexual Orientation Straight 12/19/2021 10 [...] st Contact Info) Description 06/13/2025 6:00 PM ZIPPER MACHINE OPERATOR Ancillary Procedure [facility] Imaging Center CT Clinic [address] [phone] Omar Carmona MD [address] [place] [address] [phone] 06/14/2025 4:00 PM ZIPPER MACHINE OPERATOR Office Visit [facility] Primary Care Clinic [address] [address] Omar Carmona MD [address] [place] [address] [phone] 06/15/2025 12:45 PM ZIPPER MACHINE OPERATOR Therapy Visit [facility] Rehabilitation Services [address] [phone] Jason Alvares MD 420 [facility] 295 [place], [place] [phone] Chaya Castillo, OTR [facility] 150 [place] [address] 06/19/2025 10:30 AM ZIPPER MACHINE OPERATOR Virtual Visit [facility] Primary Care [address] [address] Omar Carmona MD [address] [place] [address] 246775 Gerson Santos RPH 06/26/2025 11:00 AM ZIPPER MACHINE OPERATOR [facility] 150 [facility] [place] [address] Jason Alvares MD [address] [place] [address] [facility]illo, [facility] 150 [place] [address] 07/09/2025 12:45 PM ZIPPER MACHINE OPERATOR Therapy Visit [facility] 150 [place] [address] Jason Alvares MD [address] [place] [address] Chaya Castillo [facility]TR [facility] 150 [place] [address] 07/18/2025 3:00 PM ZIPPER MACHINE OPERATOR Office Visit [facility] Heart [address] [phone] Adonay Chapman APRN [address] [address] 11/05/2025 12:30 PM CDT Lab [facility] Lab [address] 1st [place] [address] 11/05/2025 1:45 PM CDT Office Visit [facility] Dermatology Clinic [address] 3rd [place] [phone] Gavi Nieto PA-C Dermatology [address] [place] [address] 11/20/2025 10:30 AM CDT Virtual Visit M [address] [address] Marquise Hanley MD [address] [place] [address] 9[address]67 documented as of this encounter Goals Goal [...] as of this encounter Care Teams Anesthesia Assistant Relationship Specialty Start Date End Date Omar Carmona MD [address] [place] [address] 7[address]54 PCP - General Family Medicine 07/14/24 Barry Kilpatrick MD [address] [place] [address] [id number] [place] [address] Neurology 07/19/14 Michelle Henderson RN Nurse Coordinator Neurology 07/19/14 Rio Jaquez MD [address] [place] [address] Family Practice 10/15/14 Jemima Jaramillo MD [address] [place] [address] 42871 radio time salesperson 11/20/14 Kelley Chin, TANIA [address] [address] Nurse Coordinator Cardiology 11/04/15 Sydnee Saleem MD 420 [facility] 508 [place] [address] Cardiology 11/04/15 Karlene Moya MD 516 [place], [place] 019285 Ophthalmology 06/24/17 Wilbert Quintero OD 909 [place], [place] 982725 Optometry 06/24/17 Rod Gauthier DPM 909 [place], [place] 098875 Graphic Coordinator Primary Podiatric Medicine 06/21/18 Jan Mahmood MD [address] [place] [address] 2A [place], [place] 557255 Gastroenterology 11/05/20 Brandt Quintana MD [address] [place] [address] Resident 11/05/20 Jan Mahmood MD [address] [address] Assigned Gastroenterology Provider 12/01/20 Dom Eason MD 717 [facility] 353 [place] [address] Internal Medicine 12/02/20 Jaimie Vernon, RN Specialty Securities Counselor Cardiology 10/28/21 Marquise Hanley MD [address] [place] [address] Endocrinology, Diabetes, and Metabolism 03/05/22 Vlad Ramey MD [address] [place] [address] 31037 Cardiovascular Disease 05/07/22 Joesph Crowe MD [address] [place] [address] 17476 Surgery 05/07/22 Michelle Padilla RN Specialty Securities Counselor Cardiology 07/03/22 Marquise Hanley MD [address] [place] [address] 76833 Assigned Endocrinology Provider 08/15/22 Wagner Oliver MD [address] [place] [address] Critical Care 12/15/22 Joesph Crowe MD [address] [place] [address] 60654 Surgery 03/17/23 Adonay Haq MD [address] [place] [address] 6[address] Internal Medicine 06/14/23 Ruth Riddle DPM, Podiatry/Foot and Ankle Surgery [address] [place] 815847 Assigned Musculoskeletal Provider 10/22/23 Jignesh Mathias MD [address] [place] [address] 217805 Gastroenterology 09/25/24 Omar Carmona MD [address] [place] [address] 616195 Assigned PCP 12/29/24 Jason Alvares MD [address] [place] [address] [phone] Assigned Neuroscience Provider 12/29/24 Jignesh Mathias MD [address] [place] [address] 681305 Assigned Surgical Provider 12/29/24 Ayad Lopez, PhD LP [address] [place] [address] 343255 Assigned Behavioral Health Provider 02/28/25 Gavi Nieto, PA-C [address] [place] [address] 197885 Physician Patient Service Coordinator Dermatology 03/19/25 documented as of this encounter
--- OUTSIDE RECORDS SUMMARY | 2025-06-10 11:31 | XMS_ITS | Encounter Summary ---
Author Organization [facility] Address [address] [place] [address] Care Team Providers Care Manager Copy Name Role Phone Barry Kilpatrick MD Unavailable Michelle Henderson RN Unavailable [phone] Rio Jaquez MD Unavailable +[phone] Jemima Jaramillo MD Unavailable Unavai Kelley Bautista RN Unavailable +[phone] Sydnee Saleem MD Unavailable [phone] Karlene Moya MD Unavailable [phone] Wilbert Quintero OD Unavailable +[phone] Rod Gauthier DPM Unavailable +[phone] Jan Mahmood MD Unavailable +[phone] Brandt Quintana MD Unavailable Jan Mahmood MD Unavailable +[phone] Dom Eason MD Unavailable +[phone] Jaimie Vernon RN Unavailable Unavailable Marquise [place] MD Unavailable +[phone] Vlad Ramey MD Unavailable +[phone] Joesph Crowe MD Unavailable [phone] Michelle Padilla RN Unavailable Unavaila ble Marquise [place] MD Unavailable +[phone] Wagner Oliver MD Unavailable + [phone] Joesph Crowe MD Unavailable +[phone] Adonay Haq MD Unavailable [phone] Ruth RiddleM, Podiatry /Foot and Ankle Surgery Unavailable Omar Carmona MD Primary Care Provider [phone] Jignesh Mathias MD Unavailable Omar Carmona MD Unavailable +[phone] Jason Alvares MD Unavailable Jignesh Mathias MD Unavailable Ayad Lopez PhD LP Unavailable +[phone] Gavi Nieto PA-C Unavailable +[phone] Encounter Details Date Type Department Care Team [...] Answer Date Recorded PHQ-2 Score 2 05/03/2025 [facility] [place] of Occupat ional Health - Occupational Stress [...] an overnight senior living, or couch-surfing.) Yes 04/30/2025 Are you worried [...] Sex Assigned at Female 09/12/2020 12:05 PM CHANCERY CLERK Legal Sex Female 3:26 AM CHANCERY CLERK Gender Identity Female 09/12/2020 12:05 PM CHANCERY CLERK Sexual Orientation Straight 12/19/2021 10 :44 AM CDT Occupation Industry Job Start Date Job End Date on disability for FMS Not on file Not on file Not on file disabled Not on file Not on file Not on file documented as of this encounter Plan of Treatment Upcoming Encounters Date Type Department Care Team (Late st Contact Info) Description 06/13/2025 6:00 PM CHANCERY CLERK Ancillary Procedure [facility] CT Clinic [address] [phone] Omar Carmona MD [address] [place] [address] [phone] 06/14/2025 4:00 PM CHANCERY CLERK Office Visit [facility] [address] [address] Omar Carmona MD [address] [place] [address] [phone] 06/15/2025 12:45 PM CHANCERY CLERK Therapy Visit [facility] [address] [phone] Jason Alvares MD 420 [facility] 295 [place], [place] [phone] Chaya Castillo, OTR [facility] 150 [place] [address] 06/19/2025 10:30 AM CHANCERY CLERK Virtual Visit [facility] Primary Care [address] [address] Omar Carmona MD [address] [place] [address] 543785 Gerson Santos RPH 06/26/2025 11:00 AM CHANCERY CLERK [facility] 150 [facility] [place] [address]14 Jason Alvares MD [address] [place] [address] Chaya Castillo, OTR [facility] 150 [place] [address] 07/09/2025 12:45 PM CHANCERY CLERK Therapy Visit [facility] 150 [place] [address]14 Jason Alvares MD [address] [place] [address] Chaya Castillo OTR [facility] 150 [place] [address] 07/18/2025 3:00 PM CHANCERY CLERK Office Visit [facility] Heart [address] [phone] Aodnay Chapman APRN [address] [address] 11/05/2025 12:30 PM CDT Lab [facility] Lab [address] 1[address] [place] [phone] 11/05/2025 1:45 PM CDT Office Visit [facility] Dermatology Clinic [address] 3rd [place] [phone] Gavi Nieto PA-C Dermatology [address] [place] [address] 11/20/2025 10:30 AM CDT Virtual Visit M [address] [address] Marquise Han[place] MD [address] [place] [address] 9[address] documented as of this encounter Goals Goal [...] as of this encounter Care Teams Manager Copy Relationship Specialty Start Date End Date Omar Carmona MD [address] [place] [address] 49651 PCP - General Family Medicine 07/14/24 Barry Kilpatrick MD [address] [place] [address] [id number] [place] [address] Neurology 07/19/14 Michelle Henderson RN Nurse Coordinator Neurology 07/19/14 Rio Jaquez MD [address] [place] [address] Family Practice 10/15/14 Jemima Jaramillo MD [address] [place] [address] forestry professor 11/20/14 Kelley Chin, TANIA [address] [address] Nurse Coordinator Cardiology 11/04/15 Sydnee Saleem MD 420 [facility] 508 [place] [address] Cardiology 11/04/15 Karlene Moya MD 516 [place], [place] 667125 Ophthalmology 06/24/17 Wilbert Quintero OD 909 [place], [place] 277555 Optometry 06/24/17 Rod Gauthier DPM [address] [place], [place] 501485 Principal Solutions Architect Primary Podiatric Medicine 06/21/18 Jan Mahmood MD [address] [place] [address] 2A [place], [place] 883525 Gastroenterology 11/05/20 Brandt Quintana MD [address] [place] [address] Resident 11/05/20 Jan Mahmood MD [address] [address] Assigned Gastroenterology Provider 12/01/20 Dom Eason MD 717 [facility] 353 [place] [address] Internal Medicine 12/02/20 Jaimie Vernon, RN Specialty Truck Rental Manager Cardiology 10/28/21 Marquise Hanley MD [address] [place] [address] 35[address] Endocrinology, Diabetes, and Metabolism 03/05/22 Vlad Ramey MD [address] [place] [address]122 Cardiovascular Disease 05/07/22 Joesph Crowe MD [address] [place] [address] 31912 Surgery 05/07/22 Michelle Padilla RN Specialty Truck Rental Manager Cardiology 07/03/22 Marquise Hanley MD [address] [place] [address] 86023 Assigned Endocrinology Provider 08/15/22 Wagner Oliver MD [address] [place] [address] Critical Care 12/15/22 Joesph Crowe MD [address] [place] [address] 92628 Surgery 03/17/23 Adonay Haq MD [address] [place] [address] Internal Medicine 06/14/23 Ruth Riddle DPM, Podiatry/Foot and Ankle Surgery [address] [place] 524347 Assigned Musculoskeletal Provider 10/22/23 Jignesh Mathias MD [address] [place] [address] 050895 Gastroenterology 09/25/24 Omar Carmona MD [address] [place] [address] 793635 Assigned PCP 12/29/24 Jason Alvares MD [address] [place] [address] [phone] Assigned Neuroscience Provider 12/29/24 Jignesh Mathias MD [address] [place] [address] 136405 Assigned Surgical Provider 12/29/24 Ayad Lopez, PhD LP [address] [place] [address] 770035 Assigned Behavioral Health Provider 02/28/25 Gavi Nieto, PA-C [address] [place] [address] [phone] Physician School Program Director Dermatology 03/19/25 documented as of this encounter
--- OUTSIDE RECORDS SUMMARY | 2025-06-10 11:32 | XMS_ITS | Encounter Summary ---
Author Organization [facility] Address [address] [place] [address] Care Team Providers Care Premises Technician Name Role Phone Rio Jaquez MD Primary Care Provider + [phone] Barry Kilpatrick MD Unavailable Michelle Henderson RN Unavailable [phone] Rio Jaquez MD Unavailable [phone] Jemima Jaramillo MD Unavailable Unavai Kelley Bautista RN Unavailable [phone] Sydnee Saleem MD Unavailable [phone] Karlene Moya MD Unavailable [phone] Wilbert Quintero OD Unavailable +[phone] Rod Gauthier DPM Unavailable +[phone] Nallely Hogue RN Unavailable Unavailable Larisa Vargas RN Unavailable Unavailable iRo Jaquez MD Unavailable +[phone] Francisco Lott MD Unavailable [phone] Greg Ortega MD Unavailable [phone] Jan Mahmood MD Unavailable [phone] Brandt Quintana MD Unavailable Jan Mhamood MD Unavailable Rio Jaquez MD Unavailable +[phone] Appiah MD Unavailable Adonay Haq MD Unavailable [phone] OctoberDenilson MD Unavailable +[phone] Jason Alvares MD Unavailable Ruth Riddle DPM, Podiatry /Foot and Ankle Surgery Unavailable Omar Carmona MD Primary Care Provider Jignesh Mathias MD Unavailable Adonay Haq MD Unavailable Omar Carmona MD Unavailable Jason Alvares MD Unavailable Jignesh Mathias MD Unavailable Ayad Lopez PhD LP Unavailable [phone] Gavi Nieto-C Unavailable +[phone] Encounter Details Date Type Department Care Team (Late st Contact Info) Description 11/06/2020 [facility] Medical Advice [facility] Hepatology Clinic [address] [address] Jan Mahmood MD [address] [place] [address] Social History Tobacco Use Types Packs/Day [...] Assigned at Female 09/12/2020 12:05 PM TRUCK FARMER Legal Sex Female 3:26 AM TRUCK FARMER Gender Identity Female 09/12/2020 12:05 PM TRUCK FARMER Sexual Orientation Straight 12/19/2021 10 :44 AM CDT Occupation Industry Job Start Date Job End Date on disability for FMS Not on file Not on file Not on file documented as of this encounter Plan of Treatment Upcoming Encounters Date Type Department Care Team (Late st Contact Info) Description 06/13/2025 6:00 PM TRUCK FARMER Ancillary Procedure [facility] Imaging Center CT Clinic [address] [phone] Omar Carmona MD [address] [place] [address] [phone] 06/14/2025 4:00 PM TRUCK FARMER Office Visit [facility] [address] [address] Omar Carmona MD [address] [place] [address] 230455 06/15/2025 12:45 PM TRUCK FARMER Therapy Visit [facility] [address] [place] [phone] Jason Alvares MD 420 [facility] 295 [place], [place] [phone] Chaya Castillo, OTR [facility] 150 [place], [place] 077127 06/19/2025 10:30 AM TRUCK FARMER Virtual Visit [facility] [address] [phone] Omar Carmona MD [address] [place] [address] [phone] Gerson Santos RPH 06/26/2025 11:00 AM TRUCK FARMER Therapy Visit [facility] 150 [place] [address] Jason Alvares MD [address] [place] [address] 958395 Chaya Castillo OTR [address] [address] 07/09/2025 12:45 PM TRUCK FARMER Therapy Visit [facility] Rehabilitation Services [address] [phone] Jason Alvares MD [address] [place] [address] 191655 Chaya Castillo OTR [address] [address] 07/18/2025 3:00 PM TRUCK FARMER Office Visit [facility] Heart [address] [phone] Adonay Chapman APRN [address] 944425 11/05/2025 12:30 PM CDT Lab [facility] Lab [address] [place] [phone] 11/05/2025 1:45 PM CDT Office Visit [facility] Dermatology Clinic [address]rd [place] [phone] Gavi Nieto PA-C Dermatology [address] [place] [address] 11/20/2025 10:30 AM CDT Virtual Visit [address] [address] Marquise Hanley MD [address] [place] [address] documented as of this encounter Goals Goal [...] Depression Total Score: 12 021 9:43 AM TRUCK FARMER documented as of this encounter Care Teams Premises Technician Relationship Specialty Start Date End Date Rio Jaquez MD [address] [place] [address] PCP - General Family Practice 12/02/10 07/13/24 Omar Carmona MD [address] [place] [address] PCP - General Family Medicine 07/14/24 Barry Kilpatrick MD [address] [place] [address] [id number] [address] Neurology 07/19/14 Michelle Henderson I, RN Nurse Coordinator Neurology 07/19/14 Rio Jaquez MD [address] [place] [address] 259[address] Family Practice 10/15/14 Jemima Jaramillo MD call or contact centre coach 11/20/14 Kelley Chin, TANIA [facility] [address] [place] [address] 025625 Nurse Coordinator Cardiology 11/04/15 Sydnee Saleem MD 420 [facility] 508 [place] [address] Cardiology 11/04/15 Karlene Moya MD [address] [place] [address] [phone] Ophthalmology 06/24/17 Wilbert Quintero, OD [address] [place] [address] 078865 Optometry 06/24/17 Rod Gauthier DPM [address] [place], [place] [address] Certified Breastfeeding Educator Primary Podiatric Medicine 06/21/18 Nallely Hogue, RN Registered Nurse 02/20/19 11/23/22 Larisa Vargas, TANIA Specialty Beef Tagger Cardiology 04/18/19 03/06/22 Rio Jaquez MD [address] [place] [address] [phone] Assigned PCP 12/28/19 11/16/20 Francisco Lott MD [address] [place] [address] 88 [place] [address] Assigned Rheumatology Provider 05/31/20 12/13/21 Greg Ortega MD [address] [place] [address] 676345 Assigned Surgical Provider 06/23/20 12/06/21 Jan Mahmood MD [facility] [address] [place] [address] Gastroenterology 11/05/20 Brandt Quintana MD 1414 [place] [address] Resident 11/05/20 Jan Mahmood MD [address] [facility] [address] [place] [address] Assigned Gastroenterology Provider 12/01/20 Rio Jaquez MD 909 [facility] 4 [place], [place] 354145 Assigned PCP 11/17/20 09/30/24 Dom Eason MD [address] [place] [address] 353 [place], [place] 252504 Internal Medicine 12/02/20 Jayla Plaza, RN Specialty Beef Tagger Hepatology 01/09/21 02/13/24 Jayla Plaza, RN Specialty Beef Tagger Hepatology 01/10/21 01/10/21 Sydnee Saleem MD [address] [address] Assigned Heart and Vascular Provider 02/02/21 07/24/22 Phan Coello MD Assigned Neuroscience Provider 02/21/21 11/22/21 Cristian Barragan MD [address] [place] [address] Assigned Infectious Disease Provider 02/21/21 03/06/22 Dom Eason MD [address] [place] [address] 353 [place] [address] Assigned Nephrology Provider 04/20/21 01/02/22 Jaimie Vernon, TANIA Specialty Beef Tagger Cardiology 10/28/21 Ruth Riddle DPM, Podiatry/Foot and Ankle Surgery [address] [address] Assigned Musculoskeletal Provider 11/30/21 09/30/23 Luis Arrington MD [address] [place] [address] Assigned Neuroscience Provider 11/23/21 01/02/22 Jason Alvares MD [address] [place] [address] 295 [place] [address] Assigned Neuroscience Provider 01/03/22 05/15/22 Marquise Hanley MD [address] [place] [address] Endocrinology, Diabetes, and Metabolism 03/05/22 Vlad Ramey MD [address] [place] [address] Cardiovascular Disease 05/07/22 Joesph Crowe MD [address] [place] [address] Surgery 05/07/22 Luis Arrington MD [address] [place] [address] Assigned Neuroscience Provider 05/16/22 05/14/23 Michelle Padilla, TANIA Specialty Beef Tagger Cardiology 07/03/22 Vlad Ramey MD [address] [place] [address] Assigned Heart and Vascular Provider 07/25/22 05/28/23 Marquise Hanley MD [address] [place] [address] Assigned Endocrinology Provider 08/15/22 Dom Eason MD 717 [facility] [address] [place] [address] Assigned Nephrology Provider 11/28/22 02/19/23 Wagner Oliver MD [address] [place] [address] Critical Care 12/15/22 Laura Epperson NP 7 [facility] [address] [place] [address] Assigned Nephrology Provider 02/20/23 08/30/24 Thom Taveras MD [address], [address] [place] [address] Assigned Cancer Care Provider 02/06/23 08/20/23 Joesph Crowe MD [address] [place] [address] Surgery 03/17/23 Joesph Crowe MD [address] [place] [address] Assigned Surgical Provider 04/03/23 09/30/24 Adonay Haq MD [address] [place] [address] Internal Medicine 06/14/23OctoberDenilson MD [address] [facility] [address] [place] [address] Assigned Heart and Vascular Provider 05/29/23 11/28/24 Jason Alvares MD 420 [facility] 295 [place], [place] 761515 Assigned Neuroscience Provider 05/15/23 11/28/24 Ruth Riddle DPM, Podiatry/Foot and Ankle Surgery [address] [place] [address] Assigned Musculoskeletal Provider 10/22/23 Jignesh Mathias MD [address] [place] [address] Gastroenterology 09/25/24 Adonay Haq MD [address] [place] [address] Assigned PCP 10/01/24 12/28/24 Omar Carmona MD [address] [place] [address] Assigned PCP 12/29/24 Jason Alvares MD [address] [place] [address] 220775 Assigned Neuroscience Provider 12/29/24 Jignesh Mathias MD [address] [place] [address] [phone] Assigned Surgical Provider 12/29/24 Ayad Lopez, PhD LP [address] [place] [address] 563395 Assigned Behavioral Health Provider 02/28/25 Gavi Nieto PA-C [address] [place] [address] [phone] Physician Retort Engineer Dermatology 03/19/25 documented as of this encounter
--- OUTSIDE RECORDS SUMMARY | 2025-06-10 11:32 | XMS_ITS | Encounter Summary ---
Author Organization [facility] Address [address] [place] [address] Care Team Providers Care Bail Bondsman Name Role Phone Barry Kilpatrick MD Unavailable Michelle Henderson RN Unavailable [phone] Rio Jaquez MD Unavailable [phone] Jemima Jaramillo MD Unavailable Unavai Kelley Bautista RN Unavailable [phone] Sydnee Saleem MD Unavailable [phone] Karlene Moya MD Unavailable [phone] Wilbert Qiuntero OD Unavailable [phone] Rod Gauthier DPM Unavailable [phone] Jan Mahmood MD Unavailable [phone] Brandt Quintana MD Unavailable [phone] Jan Mahmood MD Unavailable [phone] Dom Eason MD Unavailable [phone] Jaimie Vernon RN Unavailable Unavailable Marquise Hanley MD Unavailable [phone] Vlad Ramey MD Unavailable [phone] Joesph Crowe MD Unavailable Michelle Padilla RN Unavailable Unavaila ble Marquise Hanley MD Unavailable [phone] Wagner Oliver MD Unavailable [phone] Joesph Crowe MD Unavailable [phone] Adonay Haq MD Unavailable [phone] Ruth RiddleM, Podiatry /Foot and Ankle Surgery Unavailable Omar Carmona MD Primary Care Provider [phone] Jignesh Mathias MD Unavailable Adonay Haq MD Unavailable [phone] Omar Carmona MD Unavailable [phone] Jason Alvares MD Unavailable Jignesh Mathias MD Unavailable Ayad Lopez PhD LP Unavailable +[phone] Gavi Nieto PA-C Unavailable +[phone] Encounter Details Date Type Department Care Team (Late st Contact Info) Description 12/18/2024 [facility] Hepatology Clinic [address] [phone] Lizbeth Lopes Social History Tobacco [...] Date Recorded PHQ-2 Score 3 12/04/2024 [facility] - Occupational [...] Sex Assigned at Female 09/12/2020 12:05 PM SPEAKER MOUNTER Legal Sex Female 3:26 AM SPEAKER MOUNTER Gender Identity Female 09/12/2020 12:05 PM SPEAKER MOUNTER Sexual Orientation Straight 12/19/2021 10 :44 AM CDT Occupation Industry Job Start Date Job End Date on disability for FMS Not on file Not on file Not on file disabled Not on file Not on file Not on file documented as of this encounter Plan of Treatment Upcoming Encounters Date Type Department Care Team (Late st Contact Info) Description 06/13/2025 6:00 PM SPEAKER MOUNTER Ancillary Procedure [facility] Imaging Center CT Clinic [address]st [place] [phone] Omar Carmona MD [address] [place] [address] 06/14/2025 4:00 PM SPEAKER MOUNTER Office Visit [facility] Primary Care Clinic [address] 4th [place] [phone] Omar Carmona MD [address] [place] [address] 06/15/2025 12:45 PM SPEAKER MOUNTER Therapy Visit [facility] Rehabilitation Services [address] [phone] Jason Alvares MD [address] [place] [address] 373845 Chaya Castillo OTR [facility] 150 [place], [place] 6[address]27 06/19/2025 10:30 AM SPEAKER MOUNTER Virtual Visit [facility] Primary Care Clinic [address] [place] [address] 4th [place] [address] Omar Carmona MD [address] [place] [address] Gerson Santos, [facility] 06/26/2025 11:00 AM SPEAKER MOUNTER Therapy Visit [facility] 150 [place] [phone] Jason Alvares MD [address] [place] [address] 683535 Ch[facility]illo [facility] 150 [place] [address] 07/09/2025 12:45 PM SPEAKER MOUNTER [facility] 150 [place] [phone] Jason Alvares MD [address] [place] [address] 942055 Chaya Castillo OTR [facility] 150 [place], [place] 861167 07/18/2025 3:00 PM SPEAKER MOUNTER Office Visit [facility] Heart Clinic [address] [phone] Adonay Chapman APRN [address] [address] 11/05/2025 12:30 PM CDT Lab [facility] Lab [address] [phone] 11/05/2025 1:45 PM CDT Office Visit [facility] Dermatology Clinic [address] [phone] Gavi Nieto PA-C Dermatology [address] [place] [address] 11/20/2025 10:30 AM CDT Virtual Visit [address] [phone] Marquise Hanley MD [address] [place] [address] 125455 documented as of this encounter Goals Goal [...] documented as of this encounter Care Teams Bail Bondsman Relationship Specialty Start Date End Date Omar Carmona MD [address] [place] [address] PCP - General Family Medicine 07/14/24 Barry Kilpatrick MD [address] [place] [address] [id number] [place] [address] Neurology 07/19/14 Michelle Henderson I, RN Nurse Coordinator Neurology 07/19/14 Rio Jaquez MD [address] [place] [address] 4 [place], [place] 714425 Family Practice 10/15/14 Jemima Jaramillo MD [address] [place] [address] driving school instructor 11/20/14 Kelley Chin, TANIA [address] 418325 Nurse Coordinator Cardiology 11/04/15 Sydnee Saleem MD [address] [place] [address] 508 [place], [place] 428275 Cardiology 11/04/15 Karlene Moya MD [address] [place] [address] 271385 Ophthalmology 06/24/17 Wilbert Quintero, OD [address] [place] [address] 359295 Optometry 06/24/17 Rod Gauthier DPM [address] [place] [address] 558575 Linen Worker Primary Podiatric Medicine 06/21/18 Jan Mahmood MD [address] [place] [address] 2A [place], [place] 130235 Gastroenterology 11/05/20 Brandt Quintana MD 1414 [place] [address] Resident 11/05/20 Jan Mahmood MD 516 [facility] [address] 2A [place] [address] Assigned Gastroenterology Provider 12/01/20 Dom Eason MD 717 [facility] 353 [place] [address] Internal Medicine 12/02/20 Jaimie Vernon, RN Specialty Cost Control Supervisor Cardiology 10/28/21 Marquise Hanley MD [address] [place] [address] Endocrinology, Diabetes, and Metabolism 03/05/22 Vlad Ramey MD [address] [place] [address] 72756 Cardiovascular Disease 05/07/22 Joesph Crowe MD [address] [place] [address] Surgery 05/07/22 Michelle Padilla RN Specialty Cost Control Supervisor Cardiology 07/03/22 Marquise Hanley MD [address] [place] [address] Assigned Endocrinology Provider 08/15/22 Wagner Oliver MD [address] [place] [address] Critical Care 12/15/22 Joesph Crowe MD [address] [place] [address] Surgery 03/17/23 Adonay Haq MD [address] [place] [address] 00426 Internal Medicine 06/14/23 Ruth Riddle DPM, Podiatry/Foot and Ankle Surgery [address] [place] [address] Assigned Musculoskeletal Provider 10/22/23 Jigensh Mathias MD [address] [place] [address] Gastroenterology 09/25/24 Adonay Haq MD [address] [place] [address] 408665 Assigned PCP 10/01/24 12/28/24 Omar Carmona MD [address] [place] [address] Assigned PCP 12/29/24 Jason Alvares MD [address] [place] [address] 752175 Assigned Neuroscience Provider 12/29/24 Jignesh Mathias MD [address] [place] [address] Assigned Surgical Provider 12/29/24 Ayad Lopez, PhD LP [address] [place] [address] Assigned Behavioral Health Provider 02/28/25 Gavi Nieto PA-C 500 [place], [place] 593535 Physician Rice Field Worker Dermatology 03/19/25 documented as of this encounter
--- OUTSIDE RECORDS SUMMARY | 2025-06-10 11:32 | XMS_ITS | Encounter Summary ---
Author Organization [facility] Address [address] [place] [address] 89284 Care Team Providers Care International Account Manager Name Role Phone Barry Kilpatrick MD Unavailable Michelle Henderson RN Unavailable [phone] Rio Jaquez MD Unavailable +[phone] Jemima Jaramillo MD Unavailable Unavai Kelley Bautista RN Unavailable +[phone] Sydnee Saleem MD Unavailable +[phone] Karlene Moya MD Unavailable +[phone] Wilbert Quintero OD Unavailable +[phone] Rod Gauthier DPM Unavailable +[phone] Jan Mahmood MD Unavailable +[phone] Brandt Quintana MD Unavailable [phone] Jan Mahmood MD Unavailable +[phone] Dom Eason MD Unavailable +[phone] Jaimie Vernon RN Unavailable Unavailable Marquise Hanley MD Unavailable +[phone] Vlad Ramey MD Unavailable +[phone] Joesph Crowe MD Unavailable Michelle Padilla RN Unavailable Unavaila ble Marquise Hanley MD Unavailable Wagner Oliver MD Unavailable +[phone] Joesph Crowe MD Unavailable Adonay Haq MD Unavailable [phone] Ruth Riddle DPM, Podiatry /Foot and Ankle Surgery Unavailable Omar Carmona MD Primary Care Provider Jignesh Mathias MD Unavailable Omar Carmona MD Unavailable Jason Alvares MD Unavailable Jignesh Mathias MD Unavailable Ayad Lopez PhD LP Unavailable [phone] Gavi Nieto PA-C Unavailable +[phone] Encounter Details Date Type Department Care Team (Late st Contact Info) Description 05/28/2025 [facility] [address] [phone] Jignesh Mathias MD [address] [place] [address] Alcoholic cirrhosis of liver without ascites [...] Answer Date Recorded PHQ-2 Score 2 05/03/2025 [facility] - Occupational Stress Questionnaire [...] [place] [facility], or couch-surfing.) Yes 04/30/2025 Are you worried [...] Sex Assigned at Female 09/12/2020 12:05 PM TEXTILE BROKER Legal Sex Female 3:26 AM TEXTILE BROKER Gender Identity Female 09/12/2020 12:05 PM TEXTILE BROKER Sexual Orientation Straight 12/19/2021 10 :44 AM CDT Occupation Industry Job Start Date Job End Date on disability for FMS Not on file Not on file Not on file disabled Not on file Not on file Not on file documented as of this encounter Plan of Treatment Upcoming Encounters Date Type Department Care Team (Late st Contact Info) Description 06/13/2025 6:00 PM TEXTILE BROKER Ancillary Procedure [facility] [address] [place] [phone] Omar Carmona MD [address] [place] [address] 06/14/2025 4:00 PM TEXTILE BROKER Office Visit [facility] Primary Care [address] [place] [phone] Omar Carmona MD [address] [place] [address] 675115 06/15/2025 12:45 PM TEXTILE BROKER Therapy Visit [facility] Rehabilitation Services [address] [phone] Jason Alvares MD 420 [facility] 295 [place], [place] 130715 Chaya Castillo OTR FV [address] [address] 06/19/2025 10:30 AM TEXTILE BROKER Virtual Visit [facility] Clinic [address] [place] [address] 4[address] [place] [phone] Omar Carmona MD [address] [place] [address] 756565 Gerson Santos, [facility] 06/26/2025 11:00 AM TEXTILE BROKER Therapy Visit [facility] [address] [place] [phone] Jason Alvares MD [address] [place] [address] 086755 Chaya Castillo, OTR [address] [address] 07/09/2025 12:45 PM TEXTILE BROKER Therapy Visit [facility] [address] [place] [phone] Jason Alvares MD [address] [place] [address] [phone] Chaya Castillo, OTR [address] [address] 07/18/2025 3:00 PM TEXTILE BROKER Office Visit [facility] [address] [phone] Adonay Chapman APRN [address] 108[address] 11/05/2025 12:30 PM CDT Lab [facility] Lab [address] [place] [phone] 11/05/2025 1:45 PM CDT Office Visit [facility] Dermatology Clinic [address] [place] [phone] Gavi Nieto PA-C Dermatology [address] [place] [address] 11/20/2025 10:30 AM CDT Virtual Visit [address] [place] [phone] Marquise Hanley MD [address] [place] [address] documented as of this encounter Goals Goal [...] documented as of this encounter Care Teams International Account Manager Relationship Specialty Start Date End Date Omar Carmona MD [address] [place] [address] 613575 PCP - General Family Medicine 07/14/24 Barry Kilpatrick MD [address] [place] [address] [id number] [place], [place] [phone] Neurology 07/19/14 Michelle Henderson I, RN Nurse Coordinator Neurology 07/19/14 Rio Jaquez MD [address] [place] [address] [address] 4 [place], [place] [phone] Family Practice 10/15/14 Jemima Jaramillo MD 9 [facility] 4 [place] [address] bundle helper 11/20/14 Kelley Chin RN [facility] 9[address] [place], [place] [address]25 Nurse Coordinator Cardiology 11/04/15 Sydnee Saleem MD [address] [place] [address] 508 [place], [place] 419015 Cardiology 11/04/15 Karlene Moya MD [address] [place] [address] [phone] Ophthalmology 06/24/17 Wilbert Quintero, OD [address] [place] [address] 595425 Optometry 06/24/17 Rod Gauthier DPM [address] [place] [address] [phone] Direct Marketing Intern Primary Podiatric Medicine 06/21/18 Jan Mahmood MD [address] [place] [address] Gastroenterology 11/05/20 Brandt Quintana MD [address] [place] [address] Resident 11/05/20 Jan Mahmood MD [address] [place] [address] 923015 Assigned Gastroenterology Provider 12/01/20 Dom Eason MD [address] [place] [address] 78053 Internal Medicine 12/02/20 Jaimie Vernon, RN Specialty Pipe Line Walker Cardiology 10/28/21 Marquise Hanley MD [address] [place] [address] Endocrinology, Diabetes, and Metabolism 03/05/22 Vlad Ramey MD [address] [place] [address] 49212 Cardiovascular Disease 05/07/22 Joesph Crowe MD [address] [place] [address] 70843 MD Surgery 05/07/22 Michelle Padilla, RN Specialty Pipe Line Walker Cardiology 07/03/22 Marquise Hanley MD [address] [place] [address] 35463 Assigned Endocrinology Provider 08/15/22 Wagner Oliver MD [address] [place] [address] Critical Care 12/15/22 Joesph Crowe MD [address] [place] [address] 68765 Surgery 03/17/23 Adonay Haq MD [address] [place] [address] 6[address] Internal Medicine 06/14/23 Ruth Riddle DPM, Podiatry/Foot and Ankle Surgery [address] [place] [address] Assigned Musculoskeletal Provider 10/22/23 Jignesh Mathias MD [address] [place] [address] 11719 Gastroenterology 09/25/24 Omar Carmona MD [address] [place] [address] 9[address]80 Assigned PCP 12/29/24 Jason Alvares MD [address] [place] [address] 19652 Assigned Neuroscience Provider 12/29/24 Jignesh Mathias MD [address] [place] [address] 22454 Assigned Surgical Provider 12/29/24 Ayad Lopez, PhD LP [address] [place] [address] 20594 Assigned Behavioral Health Provider 02/28/25 Gavi Nieto PA-C [address] [place] [address] 826675 Physician Associate Creative Director Dermatology 03/19/25 documented as of this encounter
--- OUTSIDE RECORDS SUMMARY | 2025-06-10 11:32 | XMS_ITS | Encounter Summary ---
Author Organization [facility] Address [address] [place] [address] Care Team Providers Care Service Desk Manager Name Role Phone Rio Jaquez MD Primary Care Provider + [phone] Barry Kilpatrick MD Unavailable Michelle Henderson RN Unavailable [phone] Rio Jaquez MD Unavailable +[phone] Jemima Jaramillo MD Unavailable Unavai Kelley Bautista RN Unavailable [phone] Sydnee Saleem MD Unavailable [phone] Karlene Moya MD Unavailable [phone] Wilbert Quintero OD Unavailable +[phone] Rod GauthierM Unavailable +[phone] Nallely Hogue RN Unavailable Unavailable Larisa Vargas RN Unavailable Unavailable Rio Jaquez MD Unavailable +[phone] Ruth Yarbrough MD Unavailable [phone] Francisco Lott MD Unavailable [phone] Frida Grace MD Unavailable [phone] Sydnee Saleem MD Unavailable [phone] Greg Ortega MD Unavailable [phone] Jan Mahmood MD Unavailable Brandt Quintana MD [...] Alvares MD Unavailable Marquise Hanley MD Unavailable +[phone] Vlad Ramey MD Unavailable +[phone] Joesph Crowe MD Unavailable Luis Arrington MD Unavailable Michelle Padilla RN Unavailable Unavaila [phone] Vlad Ramey MD Unavailable [phone] Marquise Hanley MD Unavailable +[phone] Dom Eason MD Unavailable Wagner Oliver MD Unavailable Laura Epperson NP Unavailable [phone] Thom Taveras MD Unavailable [phone] Joesph Crowe MD Unavailable +[phone] Joesph Crowe MD Unavailable +[phone] Adonay Haq MD Unavailable [phone] Denilson Srinivasan MD Unavailable +[phone] Jason Alvares MD Unavailable Ruth Riddle DPM, Podiatry /Foot and Ankle Surgery Unavailable Omar Carmona MD Primary Care Provider [phone] Jignesh Mathias MD Unavailable Adonay Haq MD Unavailable [phone] Omar Carmona MD Unavailable [phone] Jason Alvares MD Unavailable Jignesh Mathias MD Unavailable Ayad Lopez PhD LP Unavailable [phone] Gavi Nieto PA-C Unavailable +[phone] Encounter Details Date Type Department Care Team (Late st Contact Info) Description 07/16/2020 [facility] [address] [address] [facility] Social History Tobacco Use Types Packs/Day Years Used Date Smoking Tobacco: Every Day Cigarettes 0.5 42.8 Started: 08/09/1982 Smokeless Tobacco: Never Alcohol Use Standard Drinks/Week Comments Yes 0 (1 standard drink = 0.6 oz pur e alcohol) twice weekly PHQ-2 Answer Date Recorded PHQ-2 Score 1 06/03/2020 Comments No Sex and Gender Information Value Date Recorded Sex Assigned at Female 09/12/2020 12:05 PM SWITCHBOARD INSTALLER Legal Sex Female 3:26 AM SWITCHBOARD INSTALLER Gender Identity Female 09/12/2020 12:05 PM SWITCHBOARD INSTALLER Sexual Orientation Straight 12/19/2021 10 :44 AM CDT Occupation Industry Job Start Date Job End Date on disability for FMS Not on file Not on file Not on file COVID-19 Exposure Response Date Recorded In the last month, have you been in contact with someone who was confirmed or suspected to have Coronavirus / COVID-19? No / Unsure 07/02/2020 12:49 PM SWITCHBOARD INSTALLER documented as of this encounter Plan of Treatment Upcoming Encounters Date Type Department Care Team (Late st Contact Info) Description 06/13/2025 6:00 PM SWITCHBOARD INSTALLER Ancillary Procedure [facility] CT Clinic [address] [phone] Omar Carmona MD [address] [place] [address] [phone] 06/14/2025 4:00 PM SWITCHBOARD INSTALLER Office Visit [facility] Primary Care [address] [phone] Omar Carmona MD [address] [place] [address] [phone] 06/15/2025 12:45 PM SWITCHBOARD INSTALLER Therapy Visit [facility] Services [address] [phone] Jason Alvares MD [address] [place] [address] 295 [place], [place] 894325 Chaya Castillo, OTR [facility] 150 [place], [place] 280587 06/19/2025 10:30 AM SWITCHBOARD INSTALLER Virtual Visit [facility] Primary Care [address] [phone] Omar Carmona MD [address] [place] [address] [phone] Gerson Santos, [place] 06/26/2025 11:00 AM SWITCHBOARD INSTALLER Therapy Visit [address] [phone] Jason Alvares MD [address] [place] [address] 423305 Chaya Castillo, OTR [address] [address] 07/09/2025 12:45 PM SWITCHBOARD INSTALLER Therapy Visit [address] [phone] Jason Alvares MD [address] [place] [address] 094955 Chaya Castillo, OTR [address] [address] 07/18/2025 3:00 PM SWITCHBOARD INSTALLER Office Visit [facility] [address] [phone] Adonay Chapman APRN [facility] [address] [place], [place] 268365 11/05/2025 12:[address] [facility] Lab [address] [place] [phone] 11/05/2025 1:45 PM CDT Office Visit [facility] Dermatology Clinic [address] [place] [phone] Gavi Nieto PA-C Dermatology [address] [place] [address] [phone] 11/20/2025 10:30 AM CDT Virtual Visit [address] [place] [address] Marquise Hanley MD 9 [place], [place] 910685 documented as of this encounter Goals Goal [...] documented as of this encounter Care Teams Service Desk Manager Relationship Specialty Start Date End Date Rio Jaquez MD [address] [place] [address] 4 [place] [address] PCP - General Family Practice 12/02/10 07/13/24 Omar Carmona MD [address] [place] [address] 67954 PCP - General Family Medicine 07/14/24 Barry Kilpatrick MD [address] [place] [address] [id number] [place] [address] Neurology 07/19/14 Michelle Henderson I, RN Nurse Coordinator Neurology 07/19/14 Rio Jaquez MD [address] [place] [address] 4 [place] [address] Family Practice 10/15/14 Jemima Jaramillo MD energy conservation representative 11/20/14 Kelley Chin, TANIA [facility] [address] [place], [place] 991005 Nurse Coordinator Cardiology 11/04/15 Sydnee Saleem MD 420 [facility] [address] [place], [place] 454225 Cardiology 11/04/15 Karlene Moya MD [address] [place] [address] [phone] Ophthalmology 06/24/17 Wilbert Quintero, OD [address] [place] [address] [phone] Optometry 06/24/17 Rod Gauthier DPM [address] [place] [address] 819655 Senior Cost Accountant Primary Podiatric Medicine 06/21/18 Nallely Hogue, RN Registered Nurse 02/20/19 11/23/22 Larisa Vargas, TANIA Specialty Matrix Bath Operator Cardiology 04/18/19 03/06/22 Rio Jaquez MD [address] [place] [address] [phone] Assigned PCP 12/28/19 11/16/20 Ruth Yarbrough MD 420 [facility] [address] [place], [place] 846245 Assigned Endocrinology Provider 05/31/20 09/28/20 Francisco Lott MD [address] [place] [address] Assigned Rheumatology Provider 05/31/20 12/13/21 Frida Grace MD [address] [facility] [place] [address] [place] [address] Assigned Pediatric Specialist Provider 05/31/20 09/08/20 Sydnee Saleem MD [address] [place] [address] [phone] Assigned Heart and Vascular Provider 05/31/20 10/22/20 Greg Ortega MD [address] [place] [address] Assigned Surgical Provider 06/23/20 12/06/21 Jan Mahmood MD [address] [place] [address]57 Gastroenterology 11/05/20 Brandt Quintana MD [address] [place] [address] Resident 11/05/20 Jan Mahmood MD [address] [place] [address] 69647 Assigned Gastroenterology Provider 12/01/20 Rio Jaquez MD [address] [place] [address] 29598 Assigned PCP 11/17/20 09/30/24 Dom Eason MD [address] [place] [address] Internal Medicine 12/02/20 Jayla Plaza, RN Specialty Matrix Bath Operator Hepatology 01/09/21 02/13/24 Jayla Plaza, RN Specialty Matrix Bath Operator Hepatology 01/10/21 01/10/21 Sydnee Saleem MD [address] [place] [address]01 Assigned Heart and Vascular Provider 02/02/21 07/24/22 Phan Coello MD Assigned Neuroscience Provider 02/21/21 11/22/21 Cristian Barragan MD [address] [place] [address] Assigned Infectious Disease Provider 02/21/21 03/06/22 Dom Eason MD [address] [place] [address] Assigned Nephrology Provider 04/20/21 01/02/22 Jaimie Vernon, TANIA Specialty Matrix Bath Operator Cardiology 10/28/21 Ruth Riddle, DPM, Podiatry/Foot and Ankle Surgery [address]39 [facility] 300 [place] [address] Assigned Musculoskeletal Provider 11/30/21 09/30/23 Luis Arrington MD [address] [place] [address] Assigned Neuroscience Provider 11/23/21 01/02/22 Jason Alvares MD [address] [place] [address] 7[address] Assigned Neuroscience Provider 01/03/22 05/15/22 Marquise Hanley MD [address] [place] [address] 73116 Endocrinology, Diabetes, and Metabolism 03/05/22 Vlad Ramey MD [address] [place] [address] 05423 Cardiovascular Disease 05/07/22 Joesph Crowe MD [address] [place] [address] 20648 Surgery 05/07/22 Luis Arrington MD [address] [place] [address] 73167 Assigned Neuroscience Provider 05/16/22 05/14/23 Michelle Padilla RN Specialty Matrix Bath Operator Cardiology 07/03/22 Vlad Ramey MD [address] [place] [address] 34839 Assigned Heart and Vascular Provider 07/25/22 05/28/23 Marquise Hanley MD [address] [place] [address] 67732 Assigned Endocrinology Provider 08/15/22 Dom Eason MD [address] [facility] [address] [place] [address] Assigned Nephrology Provider 11/28/22 02/19/23 Wagner Oliver MD [address] [place] [address] Critical Care 12/15/22 Laura Epperson, MGMT CONSULTANT 717 [facility] [address] [place] [address] Assigned Nephrology Provider 02/20/23 08/30/24 Thom Taveras MD [address] [place] [address] Assigned Cancer Care Provider 02/06/23 08/20/23 Joesph Crowe MD [address] [place] [address] 45676 Surgery 03/17/23 Joesph Crowe MD [address] [place] [address] 85514 Assigned Surgical Provider 04/03/23 09/30/24 Adonay Haq MD 9 [place], [place] [phone] Internal Medicine 06/14/23 Denilson Srinivasan MD [address] [place] [address] Assigned Heart and Vascular Provider 05/29/23 11/28/24 Jason Alvares MD 420 [facility] [address] [place], [place] 899555 Assigned Neuroscience Provider 05/15/23 11/28/24 Ruth Riddle, DPM, Podiatry/Foot and Ankle Surgery [address] [place] [address] Assigned Musculoskeletal Provider 10/22/23 Jignesh Mathias MD [address] [place] [address] 606345 Gastroenterology 09/25/24 Adonay Haq MD [address] [place] [address] [phone] Assigned PCP 10/01/24 12/28/24 Omar Carmona MD [address] [place], [place] 061275 Assigned PCP 12/29/24 Jason Alvares MD 420 [facility] [address] [place], [place] 091485 Assigned Neuroscience Provider 12/29/24 Jignesh Mathias MD [address] [place] [address] 396885 Assigned Surgical Provider 12/29/24 Ayad Lopez, PhD LP 6 [place], [place] 823355 Assigned Behavioral Health Provider 02/28/25 Gavi Nieto PA-C [address] [place] [address] Physician Straightener [employer] Dermatology 03/19/25 documented as of this encounter
--- OUTSIDE RECORDS SUMMARY | 2025-06-10 11:32 | XMS_ITS | Encounter Summary ---
Author Organization [facility] Address [address] [place] [address] Care Team Providers Care Unit Secy Name Role Phone Rio Jaquez MD Primary Care Provider + [phone] Barry Kilpatrick MD Unavailable Michelle Henderson RN Unavailable [phone] Rio Jaquez MD Unavailable [phone] Jemima Jaramillo MD Unavailable Unavai Kelley Bautista RN Unavailable [phone] Sydnee Saleem MD Unavailable [phone] Karlene Moya MD Unavailable [phone] Wilbert Quintero OD Unavailable +[phone] Rod Gauthier DPM Unavailable +[phone] Nallely Hogue RN Unavailable Unavailable Larisa Vargas RN Unavailable Unavailable Rio Jaquez MD Unavailable [phone] Francisco Lott MD Unavailable [phone] Sydnee Saleem MD Unavailable +[phone] Greg Ortega MD Unavailable [phone] Jan Mahmood MD Unavailable Brandt Quintana MD Unavailable Jan Mahmood MD Unavailable Rio Jaquez MD Unavailable Dom Eason MD Unavailable [phone] Jayla Plaza RN Unavailable Jayla Plaza RN [...] MD Unavailable Wagner Oliver MD Unavailable [phone] Laura Epperson NP Unavailable Thom Taveras MD Unavailable +[phone] Joesph Crowe MD Unavailable Joesph Crowe MD Unavailable Adonay Haq MD Unavailable OctoberDenilson MD Unavailable +[phone] Jasno Alvares MD Unavailable Ruth RiddleM, Podiatry /Foot and Ankle Surgery Unavailable Omar Carmona MD Primary Care Provider [phone] Jignesh Mathias MD Unavailable Adonay Haq MD Unavailable [phone] Omar bragg MD Unavailable Jason Alvares MD Unavailable Jignesh Mathias MD Unavailable Ayad Lopez PhD LP Unavailable [phone] Gavi Nieto-Keisha Unavailable [phone] Reason for Visit * Reason Onset Date Comments Clinic Care Coordination - Follow-up 10/07/2020 Appointment 10/08/2020 Encounter Details Date Type Department Care Team (Latest Contact Info) Description 10/07/2020 MyC Medical Advice [facility] [address] [address] Rio Jaquez MD [address] [place] [address] Clinic Care Coordination - Follow-up; Appo... [...] Sex Assigned at Female 09/12/2020 12:05 PM FREIGHT ENGINEER Legal Sex Female 3:26 AM FREIGHT ENGINEER Gender Identity Female 09/12/2020 12:05 PM FREIGHT ENGINEER Sexual Orientation Straight 12/19/2021 10 :44 AM CDT Occupation Industry Job Start Date Job End Date on disability for FMS Not on file Not on file Not on file COVID-19 Exposure Response Date Recorded In the last month, have you been in contact with someone who was confirmed or suspected to have Coronavirus / COVID-19? No / Unsure 09/16/2020 7:59 AM FREIGHT ENGINEER documented as of this encounter Miscellaneous Notes * Telephone Encounter - Eliana Chacon - 10/08/2020 11:04 AM CST Patient schedule in clinic with Dr Jaquez on 10/21 at 11:30 AM confirmed by patient. GHT ENGINEER documented in this encounter Plan of Treatment Upcoming Encounters Date Type Department Care Team (Late st Contact Info) Description 06/13/2025 6:00 PM FREIGHT ENGINEER Ancillary Procedure [facility] [address] [place] [phone] Omar Carmona MD [address] [place] [address] 06/14/2025 4:00 PM FREIGHT ENGINEER Office Visit [facility] [address] [place] [phone] Omar Carmona MD [address] [place] [address] 602135 06/15/2025 12:45 PM FREIGHT ENGINEER Therapy Visit [facility] [address] [phone] Jason Alvares MD [address] [place] [address] 574305 Chaya Castillo, OTR [facility] [address] [place] [address] 06/19/2025 10:30 AM FREIGHT ENGINEER Virtual Visit [facility] [address] [place] [address] 4th [place] [phone] Omar Carmona MD [address] [place] [address] 852855 Gerson Santos, [facility] 06/26/2025 11:00 AM FREIGHT ENGINEER Therapy Visit [address] [phone] Jason Alvares MD [address] [place] [address] 453545 Chaya Castillo [facility]TR [facility] [address] [place] [address] 07/09/2025 12:45 PM FREIGHT ENGINEER [facility] [address] [place] [phone] Jason Alvares MD [address] [place] [address] Chaya Castillo, OTR [facility] [address] [place] [address] 07/18/2025 3:00 PM FREIGHT ENGINEER Office Visit [facility] [address] [phone] Adonay Chapman APRN [address] 145215 11/05/2025 12:30 PM CDT Lab [facility] [place] [address] [facility] 1st [place] [phone] 11/05/2025 1:45 PM CDT Office Visit [facility] [address] [place] [phone] Gavi Niteo PA-C Dermatology [address] [place] [address] 11/20/2025 10:30 AM CDT Virtual Visit [address] [address] Marquise Hanley MD [address] [place] [address] documented as of this encounter Goals Goal [...] Depression Total Score: 12 021 9:43 AM FREIGHT ENGINEER documented as of this encounter Care Teams Unit Secy Relationship Specialty Start Date End Date Rio Jaquez MD [address] [place] [address] 4 [place] [address] PCP - General Family Practice 12/02/10 07/13/24 Omar Carmona MD [address] [place] [address] PCP - General Family Medicine 07/14/24 Barry Kilpatrick MD 9 [facility] [id number] [place], [place] 583895 Neurology 07/19/14 Michelle Henderson I, RN Nurse Coordinator Neurology 07/19/14 Rio Jaquez MD [address] [place] [address] [address] 4 [place], [place] 228075 Family Practice 10/15/14 Jemima Jaramillo MD biodiesel production technician 11/20/14 Kelley Chin RN [address] 742185 Nurse Coordinator Cardiology 11/04/15 Sydnee Saleem MD [address] [facility] 508 [place], [place] 325585 Cardiology 11/04/15 Karlene Moya MD [address] [place] [address] 198285 Ophthalmology 06/24/17 Wilbert Quintero, OD [address] [place] [address] 282495 Optometry 06/24/17 Rod Gauthier DPM [address] [place] [address] 799685 Film Masker Primary Podiatric Medicine 06/21/18 Nallely Hogue, RN Registered Nurse 02/20/19 11/23/22 Larisa Vargas, RN Specialty Milk Drying Machine Operator Cardiology 04/18/19 03/06/22 Rio Jaquez MD [address] [place] [address] Assigned PCP 12/28/19 11/16/20 Francisco Lott MD [address] [place] [address] Assigned Rheumatology Provider 05/31/20 12/13/21 Sydnee Saleem MD [address] [place] [address] 71691 Assigned Heart and Vascular Provider 05/31/20 10/22/20 Greg Ortega MD [address] [place] [address] Assigned Surgical Provider 06/23/20 12/06/21 Jan Mahmood MD [address] [place] [address] Gastroenterology 11/05/20 Brandt Quintana MD [address] [place] [address] Resident 11/05/20 Jan Mahmood MD [address] [place] [address] 24475 Assigned Gastroenterology Provider 12/01/20 Rio Jaquez MD [address] [place] [address] 9[address] Assigned PCP 11/17/20 09/30/24 Dom Eason MD [address] [place] [address] Internal Medicine 12/02/20 Jayla Plaza, RN Specialty Milk Drying Machine Operator Hepatology 01/09/21 02/13/24 Jayla Plaza, RN Specialty Milk Drying Machine Operator Hepatology 01/10/21 01/10/21 Sydnee Saleem MD [address] [place] [address] [phone] Assigned Heart and Vascular Provider 02/02/21 07/24/22 Phan Coello MD Assigned Neuroscience Provider 02/21/21 11/22/21 Cristian Barragan MD [address] [place] [address] Assigned Infectious Disease Provider 02/21/21 03/06/22 Dom Eason MD [address] [place] [address] 41578 Assigned Nephrology Provider 04/20/21 01/02/22 Jaimie Vernon, TANIA Specialty Milk Drying Machine Operator Cardiology 10/28/21 Ruth Riddle DPM, Podiatry/Foot and Ankle Surgery [address] [address] Assigned Musculoskeletal Provider 11/30/21 09/30/23 Luis Arrington MD [address] [place] [address] 13622 Assigned Neuroscience Provider 11/23/21 01/02/22 Jason Alvares MD [address] [place] [address] 295 [place] [address] Assigned Neuroscience Provider 01/03/22 05/15/22 Marquise Hanley MD [address] [place] [address] Endocrinology, Diabetes, and Metabolism 03/05/22 Vlad Ramey MD [address] [place] [address] 00648 Cardiovascular Disease 05/07/22 Joesph Crowe MD [address] [place] [address] 74[address] Surgery 05/07/22 Luis Arrington MD [address] [place] [address] 05799 Assigned Neuroscience Provider 05/16/22 05/14/23 Michelle Padilla RN Specialty Milk Drying Machine Operator Cardiology 07/03/22 Vlad Ramey MD [address] [place] [address] 48375 Assigned Heart and Vascular Provider 07/25/22 05/28/23 Marquise Hanley MD [address] [place] [address] 289[address] Assigned Endocrinology Provider 08/15/22 Dom Eason MD [address] [facility]EL [address] [place] [address] Assigned Nephrology Provider 11/28/22 02/19/23 Wagner Oliver MD [address] [place] [address] Critical Care 12/15/22 Laura Epperson, ASSEMBLY LEADER 717 [facility] [address] [place] [address] Assigned Nephrology Provider 02/20/23 08/30/24 Thom Taveras MD [address] [place] [address] Assigned Cancer Care Provider 02/06/23 08/20/23 Joesph Crowe MD [address] [place] [address] 51161 Surgery 03/17/23 Joesph Crowe MD [address] [place] [address] 26084 Assigned Surgical Provider 04/03/23 09/30/24 Adonay Haq MD 9 [place] [address] Internal Medicine 06/14/23 Denilson Srinivasan MD [address] [place] [address] Assigned Heart and Vascular Provider 05/29/23 11/28/24 Jason Alvares MD [address] [facility] 295 [place], [place] 339375 Assigned Neuroscience Provider 05/15/23 11/28/24 Ruth Riddle, DPM, Podiatry/Foot and Ankle Surgery [address] [place] [address] Assigned Musculoskeletal Provider 10/22/23 Jignesh Mathias MD [address] [place] [address] 506845 Gastroenterology 09/25/24 Adonay Haq MD [address] [place] [address] 537265 Assigned PCP 10/01/24 12/28/24 Omar Carmona MD [address] [place] [address] 761455 Assigned PCP 12/29/24 Jason Alvares MD 420 [facility] 295 [place], [place] 162695 Assigned Neuroscience Provider 12/29/24 Jignesh Mathias MD [address] [place] [address] 314785 Assigned Surgical Provider 12/29/24 Ayad Lopez, PhD LP 6 [place] [address] Assigned Behavioral Health Provider 02/28/25 Gavi Nieto, PA-C 500 [place] [address] Physician Credit Director Dermatology 03/19/25 documented as of this encounter
--- OUTSIDE RECORDS SUMMARY | 2025-06-10 11:32 | XMS_ITS | Encounter Summary ---
Author Organization [facility] Address [address] [place] [address] Care Team Providers Care Hardness Tester Name Role Phone Barry Kilpatrick MD Unavailable Michelle Henderson RN Unavailable Rio Jaquez MD Unavailable [phone] Jemima Jaramillo MD Unavailable Unavai Kelley Bautista RN Unavailable [phone] Sydnee Saleem MD Unavailable [phone] Karlene Moya MD Unavailable [phone] Wilbert Quintero OD Unavailable [phone] Rod Gauthier DPM Unavailable [phone] Jan Mahmood MD Unavailable [phone] Brandt Quintana MD Unavailable Jan Mahmood MD Unavailable [phone] Dom Eason MD Unavailable [phone] Jaimie Vernon RN Unavailable Unavailable Marquise Hanley MD Unavailable +[phone] Vlad Ramey MD Unavailable [phone] Joesph Crowe MD Unavailable Michelle Padilla RN Unavailable Unavaila ble Marquise Hanley MD Unavailable [phone] Wagner Oliver MD Unavailable [phone] Joesph Crowe MD Unavailable [phone] Adonay Haq MD Unavailable OctoberDenilson MD Unavailable [phone] Jason Alvares MD Unavailable Ruth Riddle DPM, Podiatry /Foot and Ankle Surgery Unavailable Omar Carmona MD Primary Care Provider [phone] Jignesh Mathias MD Unavailable Adonay Haq MD Unavailable [phone] Omar Carmona MD Unavailable [phone] Jason Alvares MD Unavailable Jignesh Mathias MD Unavailable Ayad Lopez PhD LP Unavailable [phone] Gavi Nieto-Keisha Unavailable [phone] Encounter Details Date Type Department Care Team (Late st Contact Info) Description 10/27/2024 [facility] [address] [phone] Omar Carmona MD [address] [place] [address] Social History Tobacco Use Types Packs/Day [...] Answer Date Recorded PHQ-2 Score 3 07/14/2024 [facility] [...] Sex Assigned at Female 09/12/2020 12:05 PM SNAPPER ON Legal Sex Female 3:26 AM SNAPPER ON Gender Identity Female 09/12/2020 12:05 PM SNAPPER ON Sexual Orientation Straight 12/19/2021 10 :44 AM CDT Occupation Industry Job Start Date Job End Date on disability for FMS Not on file Not on file Not on file disabled Not on file Not on file Not on file documented as of this encounter Plan of Treatment Upcoming Encounters Date Type Department Care Team (Late st Contact Info) Description 06/13/2025 6:00 PM SNAPPER ON Ancillary Procedure [facility] CT [facility] [address] [place] [phone] Omar Carmona MD [address] [place] [address] 487215 06/14/2025 4:00 PM SNAPPER ON Office Visit [facility] [address] [place] [address] Omar Carmona MD [address] [place] [address] 06/15/2025 12:45 PM SNAPPER ON Therapy Visit [facility] 150 [place] [phone] Jason Alvares MD [address] [place] [address] Chaya Castillo OTR [facility] 150 [place] [address] 06/19/2025 10:30 AM SNAPPER ON Virtual Visit [facility] [address] [place] [address] 4th [place] [phone] Omar Carmona MD [address] [place] [address] 310635 Gerson Santos [facility] 06/26/2025 11:00 AM SNAPPER ON Therapy Visit [address] [phone] Jason Alvares MD [address] [place] [address] Chaya Castillo OTR [facility] 150 [place] [address] 07/09/2025 12:45 PM SNAPPER ON Therapy Visit [facility] [address] [place] [phone] Jason Alvares MD [address] [place] [address] Chaya Castillo OTR [facility] 150 [place] [address] 07/18/2025 3:00 PM SNAPPER ON Office Visit [facility] [address] [phone] Adonay Chapman APRN [facility] 500 [place] [address] 11/05/2025 12:30 PM CDT Lab [facility] [address] [place] [phone] 11/05/2025 1:45 PM CDT Office Visit [facility] Dermatology [address] [place] [phone] Gavi Nieto PAJimmy Dermatology [address] [place] [address] [phone] 11/20/2025 10:30 AM CDT Virtual Visit [address] [address] Marquise Hanley MD [address] [place] [address] 343465 documented as of this encounter Goals Goal [...] Depression Total Score: 10 024 9:34 AM SNAPPER ON documented as of this encounter Care Teams Hardness Tester Relationship Specialty Start Date End Date Omar Carmona MD [address] [place] [address] PCP - General Family Medicine 07/14/24 Barry Kilpatrick MD [address] [place] [address] [id number] [place] [address] Neurology 07/19/14 Michelle Henderson I, TANIA Nurse Coordinator Neurology 07/19/14 Rio Jaquez MD [address] [place] [address] 4 [place], [place] 689175 Family Practice 10/15/14 Jemima Jaramillo MD [address] [place] [address] 4 [place] [address] vacuum metalizing supervisor 11/20/14 Kelley Chin RN [address] 537845 Nurse Coordinator Cardiology 11/04/15 Sydnee Saleem MD [address] [place] [address] 508 [place], [place] 934085 Cardiology 11/04/15 Karlene Moya MD [address] [place] [address] 347705 Ophthalmology 06/24/17 Wilbert Quintero, OD [address] [place] [address] 380475 Optometry 06/24/17 Rod Gauthier DPM [address] [place] [address] 388585 Shower Attendant Primary Podiatric Medicine 06/21/18 Jan Mahmood MD [address] [facility] [address] [place] [address] MD Gastroenterology 11/05/20 Brandt Quintana MD [address] [place] [address] Resident 11/05/20 Jan Mahmood MD [address] [facility] [address] [place] [address] Assigned Gastroenterology Provider 12/01/20 Dom Eason MD [address] [place] [address] Internal Medicine 12/02/20 Jaimie Vernon, RN Specialty Hotel Yardperson Cardiology 10/28/21 Marquise Hanley MD [address] [place] [address] 511165 Endocrinology, Diabetes, and Metabolism 03/05/22 Vlad Ramey MD [address] [place] [address] 79327 Cardiovascular Disease 05/07/22 Joesph Crowe MD [address] [place] [address] Surgery 05/07/22 Michelle Padilla RN Specialty Hotel Yardperson Cardiology 07/03/22 Marquise Hanley MD [address] [place] [address] 31443 Assigned Endocrinology Provider 08/15/22 Wagner Oliver MD [address] [place] [address] Critical Care 12/15/22 Joesph Crowe MD [address] [place] [address] 854915 Surgery 03/17/23 Adonay Haq MD [address] [place] [address] 201175 Internal Medicine 06/14/23OctoberDenilson MD [address] [facility] [address] [place] [address] Assigned Heart and Vascular Provider 05/29/23 11/28/24 Jason Alvares MD [address] [place] [address] 061575 Assigned Neuroscience Provider 05/15/23 11/28/24 Ruth Riddle DPM, Podiatry/Foot and Ankle Surgery [address] [place] [address] Assigned Musculoskeletal Provider 10/22/23 Jignesh Mathias MD [address] [place] [address] 412685 Gastroenterology 09/25/24 Adonay Haq MD [address] [place] [address] 436535 Assigned PCP 10/01/24 12/28/24 Omar Carmona MD [address] [place] [address] Assigned PCP 12/29/24 Jason Alvares MD [address] [place] [address] Assigned Neuroscience Provider 12/29/24 Jignesh Mathias MD [address] [place] [address] Assigned Surgical Provider 12/29/24 Ayad Lopez, PhD LP [address] [place] [address] Assigned Behavioral Health Provider 02/28/25 Gavi Nieto PA-C [address] [place] [address] [id number] Physician Mechanical Operator Dermatology 03/19/25 documented as of this encounter
--- OUTSIDE RECORDS SUMMARY | 2025-06-10 11:32 | XMS_ITS | Encounter Summary ---
Author Organization [facility] Address [address] [place] [address] 85448 Care Team Providers Care Human Resources Intern Name Role Phone Rio Jaquez MD Primary Care Provider [phone] Barry Kilpatrick MD Unavailable Michelle Henderson RN Unavailable [phone] Rio Jaquez MD Unavailable +[phone] Jemima Jaramillo MD Unavailable Unavai Kelley Bautista RN Unavailable [phone] Sydnee Saleem MD Unavailable [phone] Karlene Moya MD Unavailable [phone] Wilbert Quintero OD Unavailable +[phone] Rod Gauthier DPM Unavailable + [phone] Nallely Hogue RN Unavailable Unavailable Larisa Vargas RN Unavailable Unavailable Rio Jaquez MD Unavailable +[phone] uRth Yarbrough MD Unavailable +[phone] Francisco Lott MD Unavailable [phone] Sydnee Saleem MD Unavailable +[phone] Greg Ortega MD Unavailable Jan Mahmood [...] Taveras MD Unavailable Joesph Crowe MD Unavailable +[phone] Joesph Crowe MD Unavailable +[phone] Adonay Haq MD Unavailable Zarina Denilson Jackson MD Unavailable +[phone] Jason Alvares MD Unavailable Ruth Riddle DPM, Podiatry /Foot and Ankle Surgery Unavailable Omar Carmona MD Primary Care Provider [phone] Jignesh Mathias MD Unavailable Adonay Haq MD Unavailable [phone] Omar bragg MD Unavailable [phone] Jason Alvares MD Unavailable Jignesh Mathias MD Unavailable Ayad Lopez PhD LP Unavailable +[phone] Gavi Nieto PA-C Unavailable +[phone] Encounter Details Date Type Department Care Team [...] Sex Assigned at Female 09/12/2020 12:05 PM EXPERIMENTAL MECHANIC Legal Sex Female 3:26 AM EXPERIMENTAL MECHANIC Gender Identity Female 09/12/2020 12:05 PM EXPERIMENTAL MECHANIC Sexual Orientation Straight 12/19/2021 10 :44 AM CDT Occupation Industry Job Start Date Job End Date on disability for FMS Not on file Not on file Not on file COVID-19 Exposure Response Date Recorded In the last month, have you been in contact with someone who was confirmed or suspected to have Coronavirus / COVID-19? No / Unsure 09/16/2020 7:59 AM EXPERIMENTAL MECHANIC documented as of this encounter Plan of Treatment Upcoming Encounters Date Type Department Care Team (Late st Contact Info) Description 06/13/2025 6:00 PM EXPERIMENTAL MECHANIC Ancillary Procedure [facility] CT Clinic [address] [place] [phone] Omar Carmona MD [address] [place] [address] 986695 06/14/2025 4:00 PM EXPERIMENTAL MECHANIC Office Visit [facility] Care [address] [phone] Omar Carmona MD [address] [place] [address] [id number] 06/15/2025 12:45 PM EXPERIMENTAL MECHANIC Therapy Visit [address] [phone] Jason Alvares MD 420 [facility] 295 [place], [place] 440725 Chaya Castillo, OTR [facility] 150 [place], [place] 135037 06/19/2025 10:30 AM EXPERIMENTAL MECHANIC Virtual Visit [address] [address] Omar Carmona MD [address] [place] [address] 859775 Gerson Santos RPH 06/26/2025 11:00 AM EXPERIMENTAL MECHANIC Therapy [address] [place] [address] Jason Alvares MD [address] [place] [address] Chaya Castillo, [facility]TR [facility] 150 [place] [address] 07/09/2025 12:45 PM EXPERIMENTAL MECHANIC Therapy Visit [facility] 150 [place] [address]14 Jason Alvares MD [address] [place] [address] Chaya Castillo, OTR [address] [address] 07/18/2025 3:00 PM EXPERIMENTAL MECHANIC Office Visit [facility] [address] [phone] Adonay Chapman APRN [address] 037955 11/05/2025 12:30 PM CDT Lab [facility] [address] [place] [phone] 11/05/2025 1:45 PM CDT Office Visit [facility] [address] [place] [phone] Gavi Nieto PA-C Dermatology [address] [place] [address] 295[address] 11/20/2025 10:30 AM CDT Virtual Visit [address] [address] Marquise Hanley MD [address] [place] [address] [id number] documented as of this encounter Goals Goal [...] Depression Total Score: 12 021 9:43 AM EXPERIMENTAL MECHANIC documented as of this encounter Care Teams Human Resources Intern Relationship Specialty Start Date End Date Rio Jaquez MD [address] [place] [address] 13195 PCP - General Family Practice 12/02/10 07/13/24 Omar Carmona MD [address] [place] [address] 47454 PCP - General Family Medicine 07/14/24 Barry Kilpatrick MD [address] [place] [address] [id number] [place] [address] Neurology 07/19/14 Michelle Henderson I, TANIA Nurse Coordinator Neurology 07/19/14 Rio Jaquez MD [address] [place] [address] 59573 Family Practice 10/15/14 Jemima Jaramillo MD time piece repairer 11/20/14 Kelley Chin, TANIA [facility] [address] [place] [address] 148855 Nurse Coordinator Cardiology 11/04/15 Sydnee Saleem MD 420 [facility] 508 [place], [place] [phone] Cardiology 11/04/15 Karlene Moya MD [address] [place] [address] Ophthalmology 06/24/17 Wilbert Quintero OD [address] [place] [address] 55[address] Optometry 06/24/17 Rod Gauthier DPM [address] [place] [address] 869025 Wedding Planner Primary Podiatric Medicine 06/21/18 Nallely Hogue, RN Registered Nurse 02/20/19 11/23/22 Larisa Vargas, TANIA Specialty Job Training Supervisor Cardiology 04/18/19 03/06/22 Rio Jaquez MD [address] [place] [address] 4 [place], [place] 098395 Assigned PCP 12/28/19 11/16/20 Ruth Yarbrough MD 420 [facility] 101 [place], [place] 011895 Assigned Endocrinology Provider 05/31/20 09/28/20 Francisco Lott MD 515 [facility] 88 [place] [address] Assigned Rheumatology Provider 05/31/20 12/13/21 Sydnee Saleem MD 6550 [facility] [address] [place] [address] Assigned Heart and Vascular Provider 05/31/20 10/22/20 Greg Ortega MD 9 [place] [address] Assigned Surgical Provider 06/23/20 12/06/21 Jan Mahmood MD 6 [facility] 2A [place] [address] Gastroenterology 11/05/20 Brandt Quintana MD [address] [place] [address] 27[address] Resident 11/05/20 Jan Mahmood MD [address] [place] [address] Assigned Gastroenterology Provider 12/01/20 Rio Jaquez MD 9 [facility] 4 [place] [address] Assigned PCP 11/17/20 09/30/24 Dom Eason MD [address] [place] [address] 353 [place] [address] Internal Medicine 12/02/20 Jayla Plaza, RN Specialty Job Training Supervisor Hepatology 01/09/21 02/13/24 Jayla Plaza, RN Specialty Job Training Supervisor Hepatology 01/10/21 01/10/21 Sydnee Saleem MD 6550 [facility] [address] [place] [address] Assigned Heart and Vascular Provider 02/02/21 07/24/22 Phan Coello MD Assigned Neuroscience Provider 02/21/21 11/22/21 Cristian Barragan MD 2945 [place] [address] Assigned Infectious Disease Provider 02/21/21 03/06/22 Dom Eason MD [address] [place] [address] 353 [place] [address] Assigned Nephrology Provider 04/20/21 01/02/22 Jaimie Vernon, TANIA Specialty Job Training Supervisor Cardiology 10/28/21 Ruth Riddle, DPM, Podiatry/Foot and Ankle Surgery 9[address]98 [facility] 300 [place], [place] 622997 Assigned Musculoskeletal Provider 11/30/21 09/30/23 Luis Arrington MD 909 [place], [place] [phone] Assigned Neuroscience Provider 11/23/21 01/02/22 Jason Alvares MD 420 [facility] 295 [place], [place] 735445 Assigned Neuroscience Provider 01/03/22 05/15/22 Marquise Hanley MD [address] [place] [address] 23837 Endocrinology, Diabetes, and Metabolism 03/05/22 Vlad Ramey MD [address] [place] [address] 10055 Cardiovascular Disease 05/07/22 Joesph Crowe MD [address] [place] [address] 78309 Surgery 05/07/22 Luis Arrington MD [address] [place] [address] 82418 Assigned Neuroscience Provider 05/16/22 05/14/23 Michelle Padilla RN Specialty Job Training Supervisor Cardiology 07/03/22 Vlad Ramey MD [address] [place] [address] 23614 Assigned Heart and Vascular Provider 07/25/22 05/28/23 Marquise Hanley MD [address] [place] [address] 13389 Assigned Endocrinology Provider 08/15/22 Dom Eason MD [address] [place] [address] 44682 Assigned Nephrology Provider 11/28/22 02/19/23 Wagner Oliver MD [address] [address] Critical Care 12/15/22 Laura Epperson NP 717 [facility] 1932 [place] [address] Assigned Nephrology Provider 02/20/23 08/30/24 Thom Taveras MD [address] [facility] [place], [place] 321804 Assigned Cancer Care Provider 02/06/23 08/20/23 Joesph Crowe MD [address] [place] [address] [phone] Surgery 03/17/23 Joesph Crowe MD [address] [place] [address] 047035 Assigned Surgical Provider 04/03/23 09/30/24 Adonay Haq MD [address] [place] [address] 188665 Internal Medicine 06/14/23OctoberDenilson MD [address] [facility] [address] [place], [place] 426265 Assigned Heart and Vascular Provider 05/29/23 11/28/24 Jason Alvares MD 420 [facility] 295 [place], [place] 975065 Assigned Neuroscience Provider 05/15/23 11/28/24 Ruth Riddle, DPM, Podiatry/Foot and Ankle Surgery [address] [place], [place] 614107 Assigned Musculoskeletal Provider 10/22/23 Jignesh Mathias MD [address] [place] [address] 962815 Gastroenterology 09/25/24 Adonay Haq MD [address] [place] [address] [phone] Assigned PCP 10/01/24 12/28/24 Omar Carmona MD [address] [place] [address] 55455 Assigned PCP 12/29/24 Jason Alvares MD [address] [place] [address] Assigned Neuroscience Provider 12/29/24 Jignesh Mathias MD [address] [place] [address] 917135 Assigned Surgical Provider 12/29/24 Ayad Lopez, PhD LP [address] [place] [address] 335165 Assigned Behavioral Health Provider 02/28/25 Gavi Nieto PA-C [address] [place] [address]455 Physician Illuminator Dermatology 03/19/25 documented as of this encounter
--- OUTSIDE RECORDS SUMMARY | 2025-06-10 11:32 | XMS_ITS | Encounter Summary ---
Author Organization [facility] Address [address] [place] [address] 41371 Care Team Providers Care Vest Baster Name Role Phone Barry Kilpatrick MD Unavailable Michelle Henderson RN Unavailable [phone] Rio Jaquez MD Unavailable [phone] Jemima Jaramillo MD Unavailable Unavai Kelley Bautista RN Unavailable [phone] Sydnee Saleem MD Unavailable [phone] Karlene Moya MD Unavailable [phone] Wilbert Quintero OD Unavailable [phone] Rod Gauthier DPM Unavailable [phone] Jan Mahmood MD Unavailable +[phone] Brandt Quintana MD Unavailable Jan Mahmood MD Unavailable [phone] Dom Eason MD Unavailable +[phone] Jaimie Vernon RN Unavailable Unavailable Marquise Hanley MD Unavailable +[phone] Vlad Ramey MD Unavailable [phone] Joesph Crowe MD Unavailable Michelle Padilla RN Unavailable Unavaila ble Marquise Hanley MD Unavailable +[phone] Wagner Oliver MD Unavailable [phone] Joesph Crowe MD Unavailable [phone] Adonay Haq MD Unavailable [facility] Unavailable + [phone] Jason Alvares MD Unavailable Ruth Riddle DPM, Podiatry /Foot and Ankle Surgery Unavailable Omar Carmona MD Primary Care Provider [phone] Jignesh Mathias MD Unavailable Adonay Haq MD Unavailable [phone] Omar Carmona MD Unavailable [phone] Jason Alvares MD Unavailable Jignesh Mathias MD Unavailable Ayad Lopez PhD LP Unavailable +[phone] Gavi Nieto-C Unavailable +[phone] Encounter Details Date Type Department Care Team (Late st Contact Info) Description 10/01/2024 [facility] Medical Advice [address] [address] Marquise Hanley MD [address] [place] [address] Social History Tobacco Use Types Packs/Day [...] any clubs o r organizations such as latter day groups, unions, fraternal or athletic groups, or [...] Sex Assigned at Female 09/12/2020 12:05 PM COMMERCIAL INTERNSHIP Legal Sex Female 3:26 AM COMMERCIAL INTERNSHIP Gender Identity Female 09/12/2020 12:05 PM COMMERCIAL INTERNSHIP Sexual Orientation Straight 12/19/2021 10 :44 AM CDT Occupation Industry Job Start Date Job End Date on disability for FMS Not on file Not on file Not on file disabled Not on file Not on file Not on file documented as of this encounter Plan of Treatment Upcoming Encounters Date Type Department Care Team (Late st Contact Info) Description 06/13/2025 6:00 PM COMMERCIAL INTERNSHIP Ancillary Procedure [facility] CT Clinic [address] [place] [address] Omar Carmona MD [address] [place] [address] 042795 06/14/2025 4:00 PM COMMERCIAL INTERNSHIP Office Visit [facility] [address] [place] [address] Omar Carmona MD [address] [place] [address] 06/15/2025 12:45 PM COMMERCIAL INTERNSHIP Therapy Visit [facility] [facility] [address] [facility] [place] [phone] Jason Alvares MD [address] [place] [address] Chaya Castillo OTR [facility] 150 [place] [address] 06/19/2025 10:30 AM COMMERCIAL INTERNSHIP Virtual Visit [facility] [address] [place] [address] 4th [place] [phone] Omar Carmona MD [address] [place] [address] 248025 Gerson Santos, [facility] 06/26/2025 11:00 AM COMMERCIAL INTERNSHIP Therapy Visit [address] [phone] Jason Alvares MD [address] [place] [address] Chaya Castillo OTR [facility] [address] [place] [address] 07/09/2025 12:45 PM COMMERCIAL INTERNSHIP Therapy Visit [facility] 150 [place] [phone] Jason Alvares MD [address] [place] [address] Chaya Castillo OTR [facility] 150 [place] [address] 07/18/2025 3:00 PM COMMERCIAL INTERNSHIP Office Visit [facility] Heart [address] [phone] Adonay Chapman APRN OCCUPATIONAL PHYSICIAN 500 [place] [address] 11/05/2025 12:[address] [facility] Lab [address] [phone] 11/05/2025 1:45 PM CDT Office Visit [facility] Dermatology Clinic [address] [phone] Gavi Nieto PAJimmy Dermatology [address] [place] [address] 11/20/2025 10:30 AM CDT Virtual Visit [address] [address] Marquise Hanley MD [address] [place] [address] documented as of this encounter Goals Goal [...] Depression Total Score: 10 024 9:34 AM COMMERCIAL INTERNSHIP documented as of this encounter Care Teams Vest Baster Relationship Specialty Start Date End Date Omar Carmona MD [address] [place] [address] PCP - General Family Medicine 07/14/24 Barry Kilpatrick MD [address] [place] [address] [id number] [place] [address] Neurology 07/19/14 Michelle Henderson I, RN Nurse Coordinator Neurology 07/19/14 Rio Jaquez MD [address] [place] [address] 4 [place], [place] 214475 Family Practice 10/15/14 Jemima Jaramillo MD [address] [place] [address] 4 [place] [address] extruder tender 11/20/14 Kelley Chin RN [address] 440655 Nurse Coordinator Cardiology 11/04/15 Sydnee Saleem MD [address] [place] [address] 508 [place], [place] 446085 Cardiology 11/04/15 Karlene Moya MD [address] [place] [address] 561635 Ophthalmology 06/24/17 Wilbert Quintero, OD [address] [place] [address] 522935 Optometry 06/24/17 Rod Gauthier DPM [address] [place] [address] 479825 Corn Popper Primary Podiatric Medicine 06/21/18 Jan Mahmood MD 516 [facility] 2A [place] [address] Gastroenterology 11/05/20 Brandt Quintana MD 1414 [place] [address] Resident 11/05/20 Jan Mahmood MD 6 [facility] 2A [place] [address] Assigned Gastroenterology Provider 12/01/20 Dom Eason MD [address] [place] [address] 25692 Internal Medicine 12/02/20 Jaimie Vernon, RN Specialty Farm Crew Member Cardiology 10/28/21 Marquise Hanley MD [address] [place] [address] Endocrinology, Diabetes, and Metabolism 03/05/22 Vlad Ramey MD [address] [place] [address] 7[address] Cardiovascular Disease 05/07/22 Joesph Crowe MD [address] [place] [address] 14929 Surgery 05/07/22 Michelle Padilla, RN Specialty Farm Crew Member Cardiology 07/03/22 Marquise Hanley MD [address] [place] [address] 736[address] Assigned Endocrinology Provider 08/15/22 Wagner Oliver MD [address] [place] [address] Critical Care 12/15/22 Joesph Crowe MD [address] [place] [address] [phone] Surgery 03/17/23 Adonay Haq MD [address] [place] [address] 596385 Internal Medicine 06/14/23OctoberDenilson MD [address] [facility] [address] [place] [address] Assigned Heart and Vascular Provider 05/29/23 11/28/24 Jason Alvares MD [address] [place] [address] 295 [place], [place] 069895 Assigned Neuroscience Provider 05/15/23 11/28/24 Ruth Riddle DPM, Podiatry/Foot and Ankle Surgery [address] [place] [address] Assigned Musculoskeletal Provider 10/22/23 Jignesh Mathias MD [address] [place] [address] 400725 Gastroenterology 09/25/24 Adonay Haq MD [address] [place] [address] 547035 Assigned PCP 10/01/24 12/28/24 Omar Carmona MD [address] [place] [address] Assigned PCP 12/29/24 Jason Alvares MD [address] [place] [address] Assigned Neuroscience Provider 12/29/24 Jignesh Mathias MD [address] [place] [address] Assigned Surgical Provider 12/29/24 Ayad Lopez, PhD LP [address] [place] [address] [id number] Assigned Behavioral Health Provider 02/28/25 Gavi Nieto, PA-C [address] [place] [address] [phone] Physician High Heel Builder Dermatology 03/19/25 documented as of this encounter
--- OUTSIDE RECORDS SUMMARY | 2025-06-10 11:32 | XMS_ITS | Encounter Summary ---
Author Organization [facility] Address [address] [place] [address] Care Team Providers Care Dental Prosthetist Name Role Phone Barry Kilpatrick MD Unavailable Michelle Henderson RN Unavailable [phone] Rio Jaquez MD Unavailable +[phone] Jemima Jaramillo MD Unavailable Unavai Kelley Bautista RN Unavailable +[phone] Sydnee Saleem MD Unavailable +[phone] Karlene Moya MD Unavailable +[phone] Wilbert Quintero OD Unavailable +[phone] Rod Gauthier DPM Unavailable +[phone] Jan Mahmood MD Unavailable +[phone] Brandt Quintana MD Unavailable [phone] Jan Mahmood MD Unavailable +[phone] Dom Eason MD Unavailable +[phone] Jaiime Vernon RN Unavailable Unavailable Marquise Hanley MD Unavailable +[phone] Vlad Ramey MD Unavailable +[phone] Joesph Crowe MD Unavailable +[phone] Michelle Padilla RN Unavailable Unavaila ble Marquise Hanley MD Unavailable +[phone] Wagner Oliver MD Unavailable +- [phone] Joesph Crowe MD Unavailable +[phone] Adonay Haq MD Unavailable [phone] Ruth RiddleM, Podiatry /Foot and Ankle Surgery Unavailable Omar Carmona MD Primary Care Provider [phone] Jignesh Mathias MD Unavailable Adonay Haq MD Unavailable [phone] Omar Carmona MD Unavailable [phone] Jason Alvares MD Unavailable Jignesh Mathias MD Unavailable Ayad Lopez PhD LP Unavailable +[phone] Gavi Nieto PA-C Unavailable +[phone] Encounter Details Date Type Department Care Team (Late st Contact Info) Description 12/20/2024 MyC Medical Advice [facility] Hepatology [facility] [address] [address] Alicia Marmolejo LPN Social History [...] Answer Date Recorded PHQ-2 Score 3 12/04/2024 [facility] - Occupational [...] Sex Assigned at Female 09/12/2020 12:05 PM SOAKING ROOM OPERATOR Legal Sex Female 3:26 AM SOAKING ROOM OPERATOR Gender Identity Female 09/12/2020 12:05 PM SOAKING ROOM OPERATOR Sexual Orientation Straight 12/19/2021 10 :44 AM CDT Occupation Industry Job Start Date Job End Date on disability for FMS Not on file Not on file Not on file disabled Not on file Not on file Not on file documented as of this encounter Plan of Treatment Upcoming Encounters Date Type Department Care Team (Late st Contact Info) Description 06/13/2025 6:00 PM SOAKING ROOM OPERATOR Ancillary Procedure [facility] [address] [place] [phone] Omar Carmona MD [address] [place] [address] 06/14/2025 4:00 PM SOAKING ROOM OPERATOR Office Visit [facility] Primary [facility] [address] 4th [place] [phone] Omar Carmona MD [address] [place] [address] 06/15/2025 12:45 PM SOAKING ROOM OPERATOR Therapy Visit [facility] Rehabilitation Services [address] [address] Jason Alvares MD [address] [place] [address] 002305 Chaya Castillo OTR [facility] 150 [place] [address] 06/19/2025 10:30 AM SOAKING ROOM OPERATOR Virtual Visit [facility] [address] [place] [address] 4th [place] [phone] Omar Carmona MD [address] [place] [address] [id number] Gerson Santos [facility] 06/26/2025 11:00 AM SOAKING ROOM OPERATOR Therapy Visit [facility] 150 [place] [phone] Jason Alvares MD [address] [place] [address] [facility] [address] [place] [address] 07/09/2025 12:45 PM SOAKING ROOM OPERATOR Therapy Visit [facility] [address] [place] [phone] Jason Alvares MD [address] [place] [address] [facility] [address] [place] [address] 07/18/2025 3:00 PM SOAKING ROOM OPERATOR Office Visit [facility] Heart Clinic [address] [phone] Adonay Chapman APRN [address] [address] 11/05/2025 12:30 PM CDT Lab [facility] Lab [address] [phone] 11/05/2025 1:45 PM CDT Office Visit [facility] Dermatology Clinic [address] [place] [phone] Gavi Nieto PA-C Dermatology [address] [place] [address] [id number] 11/20/2025 10:30 AM CDT Virtual Visit [address] [phone] Marquise Hanley MD [address] [place] [address] 927365 documented as of this encounter Goals Goal [...] documented as of this encounter Care Teams Dental Prosthetist Relationship Specialty Start Date End Date Omar Carmona MD [address] [place] [address] PCP - General Family Medicine 07/14/24 Barry Kilpatrick MD [address] [place] [address] [id number] [place], [place] [phone] Neurology 07/19/14 Michelle Henderson I, RN Nurse Coordinator Neurology 07/19/14 Rio Jaquez MD 9 [facility] 4 [place], [place] 990405 Family Practice 10/15/14 Jemima Jaramillo MD [address] [place] [address] 4 [place] [address] neurology physician 11/20/14 Kelley Chin, TANIA [address] 006515 Nurse Coordinator Cardiology 11/04/15 Sydnee Saleem MD [address] [place] [address] 508 [place], [place] [phone] Cardiology 11/04/15 Karlene Moya MD [address] [place] [address] 490695 Ophthalmology 06/24/17 Wilbert Quintero, OD [address] [place] [address] 259475 Optometry 06/24/17 Rod Gauthier DPM [address] [place] [address] 333675 Wind Field Service Manager Primary Podiatric Medicine 06/21/18 Jan Mahmood MD [address] [place], [place] [address]B 2A [place], [place] 47[address] Gastroenterology 11/05/20 Brandt Quintana MD 14[address] [place] [address] Resident 11/05/20 Jan Mahmood MD [address] [facility] [address] [place] [address] Assigned Gastroenterology Provider 12/01/20 Dom Eason MD 717 [facility] 353 [place] [address] Internal Medicine 12/02/20 Jaimie Vernon, RN Specialty Knowledge Architect Cardiology 10/28/21 Marquise Hanley MD [address] [place] [address] Endocrinology, Diabetes, and Metabolism 03/05/22 Vlad Ramey MD [address] [place] [address] Cardiovascular Disease 05/07/22 Joesph Crowe MD [address] [place] [address] 29966 Surgery 05/07/22 Michelle Padilla, TANIA Specialty Knowledge Architect Cardiology 07/03/22 Marquise Hanley MD [address] [place] [address] Assigned Endocrinology Provider 08/15/22 Wagner Oliver MD [address] [place] [address] Critical Care 12/15/22 Joesph Crowe MD [address] [place] [address] Surgery 03/17/23 Adonay Haq MD [address] [place] [address] Internal Medicine 06/14/23 Ruth Riddle DPM, Podiatry/Foot and Ankle Surgery [address] [facility] [address] Assigned Musculoskeletal Provider 10/22/23 Jignesh Mathias MD [address] [place] [address] Gastroenterology 09/25/24 Adonay Haq MD [address] [place] [address] Assigned PCP 10/01/24 12/28/24 Omar Carmona MD [address] [place] [address] Assigned PCP 12/29/24 Jason Alvares MD [address] [place] [address] Assigned Neuroscience Provider 12/29/24 Jignesh Mathias MD [address] [place] [address] Assigned Surgical Provider 12/29/24 Ayad Lopez, PhD LP [address] [place] [address] 14426 Assigned Behavioral Health Provider 02/28/25 Gavi Nieto PA-C [address] [place] [address] [phone] Physician Interior Design Director Dermatology 03/19/25 documented as of this encounter
--- OUTSIDE RECORDS SUMMARY | 2025-06-10 11:32 | XMS_ITS | Encounter Summary ---
Author Organization [facility] Address [address] [place] [address] Care Team Providers Care Collection Systems Modeler Name Role Phone Barry Kilpatrick MD Unavailable Michelle Henderson RN Unavailable [phone] Rio Jaquez MD Unavailable [phone] Jemima Jaramillo MD Unavailable Unavai Kelley Bautista RN Unavailable [phone] Sydnee Saleem MD Unavailable [phone] Karlene Moya MD Unavailable [phone] Wilbert Quintero OD Unavailable +[phone] Rod Gauthier DPM Unavailable [phone] Jan Mahmood MD Unavailable +[phone] Brandt Quintana MD Unavailable Jan Mahmood MD Unavailable [phone] Rio Jaquez MD Unavailable +[phone] Dom Eason MD Unavailable Jaimie Vernon RN Unavailable Unavailable Marquise Hanley MD Unavailable +[phone] Vlad Ramey MD Unavailable +[phone] Joesph Crowe MD Unavailable [phone] Michelle Padilla RN Unavailable Unavaila ble Marquise Hanley MD Unavailable +[phone] Wagner Oliver MD Unavailable + [phone] Joesph Crowe MD Unavailable [phone] Joesph Crowe MD Unavailable +[phone] Adonay Haq MD Unavailable [phone] OctoberDenilson MD Unavailable +[phone] Jason Alvares MD Unavailable Ruth Riddle DPM, Podiatry /Foot and Ankle Surgery Unavailable Omar Carmona MD Primary Care Provider [phone] Jignesh Mathias MD Unavailable Adonay Haq MD Unavailable [phone] Omar Carmona MD Unavailable [phone] Jason Alvares MD Unavailable Jignesh Mathias MD Unavailable Ayad Lopez PhD LP Unavailable +[phone] Gavi Nieto PA-C Unavailable [phone] Encounter Details Date Type Department Care Team (Late st Contact Info) Description 09/02/[address] [facility] Primary [facility] [address] [place] [address] Lizbeth Lopes Social History Tobacco [...] Answer Date Recorded PHQ-2 Score 3 07/14/2024 [facility] Occupat ional Health - [...] Assigned at Female 09/12/2020 12:05 PM GAS WELDER APPRENTICE Legal Sex Female 3:26 AM GAS WELDER APPRENTICE Gender Identity Female 09/12/2020 12:05 PM GAS WELDER APPRENTICE Sexual Orientation Straight 12/19/2021 10 :44 AM CDT Occupation Industry Job Start Date Job End Date on disability for FMS Not on file Not on file Not on file disabled Not on file Not on file Not on file documented as of this encounter Plan of Treatment Upcoming Encounters Date Type Department Care Team (Late st Contact Info) Description 06/13/2025 6:00 PM GAS WELDER APPRENTICE Ancillary Procedure [facility] Imaging Center CT Clinic [address] [place] [phone] Omar Carmona MD [address] [place] [address] 642995 06/14/2025 4:00 PM GAS WELDER APPRENTICE Office Visit [facility] Primary Care Clinic [address] [place] [address] Omar Carmona MD [address] [place] [address] 06/15/2025 12:45 PM GAS WELDER APPRENTICE Therapy Visit [facility] clin[facility] [address] [facility] [place] [phone] Jason Alvares MD [address] [place] [address] Chaya Castillo OTR [facility] 150 [place] [address] 06/19/2025 10:30 AM GAS WELDER APPRENTICE Virtual Visit [facility] Primary Care Clinic [address] [place] [address] 4th [place] [phone] Omar Carmona MD [address] [place] [address] 558385 Gerson Santos [facility] 06/26/2025 11:00 AM GAS WELDER APPRENTICE Therapy Visit [facility] 150 [place] [phone] Jason Alvares MD [address] [place] [address] Chaya Castillo OTR [facility] 150 [place] [address] 07/09/2025 12:45 PM GAS WELDER APPRENTICE Therapy Visit [facility] 150 [place] [phone] Jason Alvares MD [address] [place] [address] Chaya Castillo OTR [facility] [address] [address] 07/18/2025 3:00 PM GAS WELDER APPRENTICE Office Visit [facility] Heart [address] [phone] Adonay Chapman APRN [facility] 500 [place] [address] 11/05/2025 12:30 PM CDT Lab [facility] Lab [address] [place] [phone] 11/05/2025 1:45 PM CDT Office Visit [facility] Dermatology [address] [place] [address] Gavi Nieto PANavinC Dermatology [address] [place] [address] 11/20/2025 10:30 AM CDT Virtual Visit [address] [address] Marquise Hanley MD [address] [place] [address] documented as of this encounter Goals Goal [...] Total Score: 10 2 024 9:34 AM GAS WELDER APPRENTICE documented as of this encounter Care Teams Collection Systems Modeler Relationship Specialty Start Date End Date Omar Carmona MD [address] [place] [address] PCP - General Family Medicine 07/14/24 Barry Kilpatrick MD [address] [place] [address] [id number] [place] [address] Neurology 07/19/14 Michelle Henderson I, TANIA Nurse Coordinator Neurology 07/19/14 Rio Jaquez MD [address] [place] [address] 4 [place], [place] 490745 Family Practice 10/15/14 Jemima Jaramillo MD [address] [place] [address] 4 [place] [address] ore dressing engineer 11/20/14 Kelley Chin, TANIA [address] 722935 Nurse Coordinator Cardiology 11/04/15 Sydnee Saleem MD [address] [place] [address] 508 [place], [place] 307845 Cardiology 11/04/15 Karlene Moya MD [address] [place] [address] 919375 Ophthalmology 06/24/17 Wilbert Quintero, OD [address] [place] [address] 132675 Optometry 06/24/17 Rod Gauthier DPM [address] [place] [address] 703185 Cookie Padder Primary Podiatric Medicine 06/21/18 Jan Mahmood MD 516 [facility] 2A [place] [address] Gastroenterology 11/05/20 Brandt Quintana MD 1414 [place] [address] Resident 11/05/20 Jan Mahmood MD 6 [facility] 2A [place] [address] Assigned Gastroenterology Provider 12/01/20 Rio Jaquez MD [address] [place] [address] Assigned PCP 11/17/20 09/30/24 Dom Eason MD 7 [facility] 353 [place] [address] Internal Medicine 12/02/20 Jaimie Vernon, TANIA Specialty Corn Popper Cardiology 10/28/21 Marquise Hanley MD [address] [place] [address] Endocrinology, Diabetes, and Metabolism 03/05/22 Vlad Ramey MD [address] [place] [address] 014945 Cardiovascular Disease 05/07/22 Joesph Crowe MD [address] [place] [address] 110[address] Surgery 05/07/22 Michelle Padilla, RN Specialty Corn Popper Cardiology 07/03/22 Marquise Hanley MD [address] [place] [address] Assigned Endocrinology Provider 08/15/22 Wagner Oliver MD [address] [place] [address] Critical Care 12/15/22 Joesph Crowe MD [address] [place] [address]39 Surgery 03/17/23 Joesph Crowe MD [address] [place] [address] 9[address] Assigned Surgical Provider 04/03/23 09/30/24 Adonay Haq MD [address] [place] [address] Internal Medicine 06/14/23OctoberDenilson MD [address] [facility] [address] [place] [address] Assigned Heart and Vascular Provider 05/29/23 11/28/24 Jason Alvares MD [address] [place] [address] 295 [place] [address] Assigned Neuroscience Provider 05/15/23 11/28/24 Ruth Riddle DPM, Podiatry/Foot and Ankle Surgery [address] [place] [address] Assigned Musculoskeletal Provider 10/22/23 Jignesh Mathias MD [address] [place] [address] Gastroenterology 09/25/24 Adonay Haq MD [address] [place] [address] 902685 Assigned PCP 10/01/24 12/28/24 Omar Carmona MD [address] [place] [address] 676965 Assigned PCP 12/29/24 Jason Alvares MD [address] [place] [address] 768855 Assigned Neuroscience Provider 12/29/24 Jignesh Mathias MD [address] [place] [address] 842825 Assigned Surgical Provider 12/29/24 Ayad Lopez, PhD LP [address] [place] [address] 861535 Assigned Behavioral Health Provider 02/28/25 Gavi Nieto PA-C [address] [place] [address] 146395 Physician Compressed Gas Tester Dermatology 03/19/25 documented as of this encounter
--- OUTSIDE RECORDS SUMMARY | 2025-06-10 11:32 | XMS_ITS | Encounter Summary ---
Author Organization [facility] Address [address] [place] [address] 28340 Care Team Providers Care Siding Stapler Name Role Phone Rio Jaquez MD Primary Care Provider + [phone] Barry Kilpatrick MD Unavailable Michelle Henderson RN Unavailable [phone] Rio Jaquez MD Unavailable +[phone] Jemima Jaramillo MD Unavailable Unavai Kelley Bautista RN Unavailable +[phone] Sydnee Saleem MD Unavailable +[phone] Karlene Moya MD Unavailable +[phone] Wilbert Quintero OD Unavailable +[phone] Rod GauthierM Unavailable +[phone] Nallely Hogue RN Unavailable Unavailable Larisa Vargas RN Unavailable Unavailable Rio Jaquez MD Unavailable +[phone] Ruth Yarbrough MD Unavailable +[phone] Francisco Lott MD Unavailable +[phone] Frida Grace MD Unavailable +[phone] Sydnee Saleem MD Unavailable +[phone] [...] Unavailable Wagner Oliver MD Unavailable ZeenatLaura Ward COMMERCIAL SALES REPRESENTATIVE Unavailable [phone] Thom Taveras MD Unavailable +[phone] Joesph Crowe MD Unavailable +[phone] Joesph Crowe MD Unavailable +[phone] Adonay Haq MD Unavailable [phone] [facility] Unavailable +[phone] Jason Alvares MD Unavailable Ruth Riddle DPM, Podiatry /Foot and Ankle Surgery Unavailable Omar Carmona MD Primary Care Provider [phone] Jignesh Mathias MD Unavailable Adonay Haq MD Unavailable [phone] Omar Carmona MD Unavailable [phone] Jason Alvares MD Unavailable Jignesh Mathias MD Unavailable Ayad Lopez PhD LP Unavailable [phone] Gavi Nieto-C Unavailable +[phone] Encounter Details Date Type Department Care Team [...] Sex Assigned at Female 09/12/2020 12:05 PM NUCLEAR PHYSICS TEACHER Legal Sex Female 3:26 AM NUCLEAR PHYSICS TEACHER Gender Identity Female 09/12/2020 12:05 PM NUCLEAR PHYSICS TEACHER Sexual Orientation Straight 12/19/2021 10 :44 AM CDT Occupation Industry Job Start Date Job End Date on disability for FMS Not on file Not on file Not on file COVID-19 Exposure Response Date Recorded In the last month, have you been in contact with someone who was confirmed or suspected to have Coronavirus / COVID-19? No / Unsure 06/12/2020 2:47 PM NUCLEAR PHYSICS TEACHER documented as of this encounter Plan of Treatment Upcoming Encounters Date Type Department Care Team (Late st Contact Info) Description 06/13/2025 6:00 PM NUCLEAR PHYSICS TEACHER Ancillary Procedure [facility] Imaging Center [place] Clinic [address] [phone] Omar Carmona MD [address] [place] [address] [phone] 06/14/2025 4:00 PM NUCLEAR PHYSICS TEACHER Office Visit [facility] Primary Care [address] [address] Oamr Carmona MD [address] [place] [address] 199155 06/15/2025 12:45 PM NUCLEAR PHYSICS TEACHER Therapy Visit [facility] Rehabilitation Services [address] [phone] Jason Alvares MD 420 [facility] 295 [place], [place] 615115 Chaya Castillo OTR [facility] 150 [place], [place] 481367 06/19/2025 10:30 AM NUCLEAR PHYSICS TEACHER Virtual Visit [facility] Primary Care [address] [phone] Omar Carmona MD [address] [place] [address] [phone] Gerson Santos, MORENO 06/26/2025 11:00 AM NUCLEAR PHYSICS TEACHER Therapy Visit [address] [phone] Jason Alvraes MD [address] [place] [address] Chaya Castillo, OTR [address] [address] 07/09/2025 12:45 PM NUCLEAR PHYSICS TEACHER Therapy Visit [address] [phone] Jason Alvares MD [address] [place] [address] 24[address] Chaya Castillo, OTR [address] [address] 07/18/2025 3:00 PM NUCLEAR PHYSICS TEACHER Office Visit [facility] Heart Clinic [address] [phone] Adonay Chapman APRN [facility] 500 [place], [place] 746625 11/05/2025 12:30 PM CDT Lab [facility] Lab [address] [phone] 11/05/2025 1:45 PM CDT Office Visit [facility] Dermatology Clinic [address] 3rd [place] [phone] Gavi Nieto PA-C Dermatology [address] [place] [address] 11/20/2025 10:30 AM CDT Virtual Visit [address] [address] Marquise Hanley MD [address] [place] [address] 987[address] documented as of this encounter Goals Goal [...] documented as of this encounter Care Teams Siding Stapler Relationship Specialty Start Date End Date Rio Jaquez MD [address] [place] [address] 75763 PCP - General Family Practice 12/02/10 07/13/24 Omar Carmona MD [address] [place] [address] 50076 PCP - General Family Medicine 07/14/24 Barry Kilpatrick MD [address] [place] [address] [place] [address] Neurology 07/19/14 Michelle Henderson I, RN Nurse Coordinator Neurology 07/19/14 Rio Jauqez MD [address] [place] [address] [place] 003615 Family Practice 10/15/14 Jemima Jaramillo MD casino controller 11/20/14 Kelley Chin RN [facility] 9[address] [place], [place] 143255 Nurse Coordinator Cardiology 11/04/15 Sydnee Saleem MD [address] [place] [address] 508 [place], [place] 756325 Cardiology 11/04/15 Karlene Moya MD [address] [place] [address] 827345 Ophthalmology 06/24/17 Wilbert Quintero, PETEY [address] [place] [address] [phone] Optometry 06/24/17 Rod Gauthier DPM [address] [place] [address] 377185 Vacuum Metalizer Operator Primary Podiatric Medicine 06/21/18 Nallely Hogue, RN Registered Nurse 02/20/19 11/23/22 Larisa Vargas, TANIA Specialty Process Automation Engineer Cardiology 04/18/19 03/06/22 Rio Jaquez MD [address] [place] [address] 129915 Assigned PCP 12/28/19 11/16/20 Ruth Yarbrough MD 420 [facility] 101 [place], [place] 489745 Assigned Endocrinology Provider 05/31/20 09/28/20 Francisco Lott MD [address] [place] [address] 81018 Assigned Rheumatology Provider 05/31/20 12/13/21 Frida Grace MD 3305 [facility] [place] [address] Assigned Pediatric Specialist Provider 05/31/20 09/08/20 Sydnee Saleem MD [address] [place] [address] 89347 Assigned Heart and Vascular Provider 05/31/20 10/22/20 Greg Ortega MD [address] [place] [address] 27030 Assigned Surgical Provider 06/23/20 12/06/21 Frida Grace MD 3305 [facility] [place] [address] Assigned Surgical Provider 05/31/20 06/22/20 Jan Mahmood MD [address] [place] [address] 57270 Gastroenterology 11/05/20 Brandt Quintana MD [address] [place] [address] 94132 Resident 11/05/20 Jan Mahmood MD [address] [place] [address] 23441 Assigned Gastroenterology Provider 12/01/20 Rio Jaquez MD [address] [facility] 4 [place], [place] 178535 Assigned PCP 11/17/20 09/30/24 Dom Eason MD [address] [place] [address] 353 [place], [place] 113314 Internal Medicine 12/02/20 Jayla Plaza, RN Specialty Process Automation Engineer Hepatology 01/09/21 02/13/24 Jayla Plaza, RN Specialty Process Automation Engineer Hepatology 01/10/21 01/10/21 Sydnee Saleem MD [address] [place] [address] Assigned Heart and Vascular Provider 02/02/21 07/24/22 Phan Coello MD Assigned Neuroscience Provider 02/21/21 11/22/21 Cristian Barragan MD [address]45 [place] [address] Assigned Infectious Disease Provider 02/21/21 03/06/22 Dom Eason MD [address] [place] [address] 353 [place] [address] Assigned Nephrology Provider 04/20/21 01/02/22 Jaimie Vernon, TANIA Specialty Process Automation Engineer Cardiology 10/28/21 Ruth Riddle DPM, Podiatry/Foot and Ankle Surgery [address] [place] [address] [place] [address] 88644 Assigned Musculoskeletal Provider 11/30/21 09/30/23 Luis Arrington MD [address] [place] [address] 26132 Assigned Neuroscience Provider 11/23/21 01/02/22 Jason Alvares MD [address] [place] [address] 72885 Assigned Neuroscience Provider 01/03/22 05/15/22 Marquise Hanley MD [address] [place] [address] 28128 Endocrinology, Diabetes, and Metabolism 03/05/22 Vlad Ramey MD [address] [place] [address] 35970 Cardiovascular Disease 05/07/22 Joesph Crowe MD [address] [place] [address] 71126 Surgery 05/07/22 Luis Arrington MD [address] [place] [address] 50035 Assigned Neuroscience Provider 05/16/22 05/14/23 Michelle Padilla, TANIA Specialty Process Automation Engineer Cardiology 07/03/22 Vlad Ramey MD [address] [place] [address] 29774 Assigned Heart and Vascular Provider 07/25/22 05/28/23 Marquise Hanley MD [address] [place] [address] 04250 Assigned Endocrinology Provider 08/15/22 Dom Eason MD 717 [facility] 353 [place] [address] Assigned Nephrology Provider 11/28/22 02/19/23 Wagner Oliver MD 6401 [facility] [place] [address] Critical Care 12/15/22 Laura Epperson NP 7 [facility] 1932 [place] [address] Assigned Nephrology Provider 02/20/23 08/30/24 Thom Taveras MD [address] [place] [address] Assigned Cancer Care Provider 02/06/23 08/20/23 Joesph Crowe MD [address] [place] [address] 98164 Surgery 03/17/23 Joesph Crowe MD [address] [place] [address] 88609 Assigned Surgical Provider 04/03/23 09/30/24 Adonay Haq MD [address] [place] [address] 52978 Internal Medicine 06/14/23OctoberDenilson MD [address] [place] [address] Assigned Heart and Vascular Provider 05/29/23 11/28/24 Jason Alvares MD 420 [facility] 295 [place] [address] Assigned Neuroscience Provider 05/15/23 11/28/24 Ruth Riddle, DPM, Podiatry/Foot and Ankle Surgery [address] [place] [place], [place] 965037 Assigned Musculoskeletal Provider 10/22/23 Jignesh Mathias MD [address] [place] [address] 797685 Gastroenterology 09/25/24 Adonay Haq MD [address] [place] [address] 323385 Assigned PCP 10/01/24 12/28/24 Omra Carmona MD 9 [place], [place] 566255 Assigned PCP 12/29/24 Jason Alvares MD [address] [address] Assigned Neuroscience Provider 12/29/24 Jignesh Mathias MD [address] [place] [address] 46761 Assigned Surgical Provider 12/29/24 Ayad Lopez, PhD LP [address] [place] [address] 6[address]46 Assigned Behavioral Health Provider 02/28/25 Gavi Nieto PA-C [address] [place] [address] Physician Ep Tech Dermatology 03/19/25 documented as of this encounter
--- OUTSIDE RECORDS SUMMARY | 2025-06-10 11:32 | XMS_ITS | Encounter Summary ---
Author Organization [facility] Address [address] [place] [address] Care Team Providers Care Mold Dumper Name Role Phone Barry Kilpatrick MD Unavailable Michelle Henderson RN Unavailable [phone] Rio Jaquez MD Unavailable [phone] Jemima Jaramillo MD Unavailable Unavai Kelley Bautista RN Unavailable [phone] Sydnee Saleem MD Unavailable [phone] Karlene Moya MD Unavailable [phone] Wilbert Quintero OD Unavailable +[phone] Rod Gauthier DPM Unavailable [phone] Jan Mahmood MD Unavailable [phone] Brandt Quintana MD Unavailable [phone] Jan Mahmood MD Unavailable [phone] Dom Eason MD Unavailable +[phone] Jaimie Vernon RN Unavailable Unavailable Marquise Hanley MD Unavailable +[phone] Vlad Ramey MD Unavailable [phone] Joesph Crowe MD Unavailable [phone] Michelle Padilla RN Unavailable Unavaila ble Marquise Hanley MD Unavailable +[phone] Wagner Oliver MD Unavailable [phone] Joesph Crowe MD Unavailable Adonay Haq MD Unavailable [phone] OctoberDenilson MD Unavailable [phone] Jason Alavres MD Unavailable Ruth Riddle DPM, Podiatry /Foot and Ankle Surgery Unavailable Omar Carmona MD Primary Care Provider [phone] Jignesh Mathias MD Unavailable Adonay Haq MD Unavailable [phone] Omar Carmona MD Unavailable Jason Alvares MD Unavailable Jignesh Mathias MD Unavailable Ayad Lopez PhD LP Unavailable [phone] Gavi Nieto-Keisha Unavailable [phone] Encounter Details Date Type Department Care Team (Late st Contact Info) Description 11/03/2024 [facility] [address] [phone] Omar Carmona MD [address] [place] [address] Social History Tobacco Use Types Packs/Day [...] Sex Assigned at Female 09/12/2020 12:05 PM FURNISHINGS CONSERVATOR Legal Sex Female 3:26 AM FURNISHINGS CONSERVATOR Gender Identity Female 09/12/2020 12:05 PM FURNISHINGS CONSERVATOR Sexual Orientation Straight 12/19/2021 10 :44 AM CDT Occupation Industry Job Start Date Job End Date on disability for FMS Not on file Not on file Not on file disabled Not on file Not on file Not on file documented as of this encounter Plan of Treatment Upcoming Encounters Date Type Department Care Team (Late st Contact Info) Description 06/13/2025 6:00 PM FURNISHINGS CONSERVATOR Ancillary Procedure [facility] Imaging Center CT Clinic [address] [place] [phone] Omar Carmona MD [address] [place] [address] 139465 06/14/2025 4:00 PM FURNISHINGS CONSERVATOR Office Visit [facility] Primary Care Clinic [address] [place] [address] Omar Carmona MD [address] [place] [address] 32264 06/15/2025 12:45 PM FURNISHINGS CONSERVATOR Therapy Visit [facility] 150 [place] [phone] Jason Alvares MD [address] [place] [address] 33080 Chaya Castillo OTR [facility] 150 [place] [address] 06/19/2025 10:30 AM FURNISHINGS CONSERVATOR Virtual Visit [facility] Primary Care Clinic [address] [place] [address] 4th [place] [phone] Omar Carmona MD [address] [place] [address] 433965 Gerson Santos [facility] 06/26/2025 11:00 AM FURNISHINGS CONSERVATOR Therapy Visit [address] [phone] Jason Alvares MD [address] [place] [address]99 Chaya Castillo OTR [facility] 150 [place] [address] 07/09/2025 12:45 PM FURNISHINGS CONSERVATOR Therapy Visit [facility] [address] [place] [phone] Jason Alvares MD [address] [place] [address] 16[address] Chaya Castillo OTR [facility] 150 [place] [address] 07/18/2025 3:00 PM FURNISHINGS CONSERVATOR Office Visit [facility] Heart [address] [phone] Adonay Chapman APRN [facility] 500 [place] [address] 11/05/2025 12:30 PM CDT Lab [facility] Lab [address] [place] [phone] 11/05/2025 1:45 PM CDT Office Visit [facility] Dermatology [address] [place] [phone] Gavi Nieto PAJimmy Dermatology [address] [place] [address] [phone] 11/20/2025 10:30 AM CDT Virtual Visit [address] [address] Marquise Hanley MD [address] [place] [address] 613675 documented as of this encounter Goals Goal [...] Depression Total Score: 10 024 9:34 AM FURNISHINGS CONSERVATOR documented as of this encounter Care Teams Mold Dumper Relationship Specialty Start Date End Date Omar Carmona MD [address] [place] [address] 40245 PCP - General Family Medicine 07/14/24 Barry Kilpatrick MD [address] [place] [address] OF1302SU [place] [address] Neurology 07/19/14 Michelle Henderson I, TANIA Nurse Coordinator Neurology 07/19/14 Rio Jaquez MD [address] [place] [address] 4 [place], [place] 935435 Family Practice 10/15/14 Jemima Jaramillo MD [address] [place] [address] 4 [place] [address] velvet weaver 11/20/14 Kelley Chin RN [address] 170425 Nurse Coordinator Cardiology 11/04/15 Sydnee Saleem MD [address] [place] [address] 508 [place], [place] 354235 Cardiology 11/04/15 Karlene Moya MD [address] [place] [address] 210975 Ophthalmology 06/24/17 Wilbert Quintero, OD [address] [place] [address] 686865 Optometry 06/24/17 Rod Gauthier DPM [address] [place] [address] 258715 Supervising Bailiff Primary Podiatric Medicine 06/21/18 Jan Mahmood MD 516 [facility] 2A [place] [address] MD Gastroenterology 11/05/20 Brandt Quintana MD [address] [place] [address] Resident 11/05/20 Jan Mahmood MD 6 [facility] 2A [place] [address] Assigned Gastroenterology Provider 12/01/20 Dom Eason MD [address] [place] [address] 15467 Internal Medicine 12/02/20 Jaimie Vernon, RN Specialty National Van Truck Driver Cardiology 10/28/21 Marquise Hanley MD [address] [place] [address] 990455 Endocrinology, Diabetes, and Metabolism 03/05/22 Vlad Ramey MD [address] [place] [address] 68419 Cardiovascular Disease 05/07/22 Joesph Crowe MD [address] [place] [address] 53682 Surgery 05/07/22 Michelle Padilla RN Specialty National Van Truck Driver Cardiology 07/03/22 Marquise Hanley MD [address] [place] [address] 43188 Assigned Endocrinology Provider 08/15/22 Wagner Oliver MD [address] [place] [address] Critical Care 12/15/22 Joesph Crowe MD [address] [place] [address] 070405 Surgery 03/17/23 Adonay Haq MD [address] [place] [address] 310675 Internal Medicine 06/14/23OctoberDenilson MD [address] [facility] [address] [place] [address] Assigned Heart and Vascular Provider 05/29/23 11/28/24 Jason Alvares MD [address] [place] [address] 665025 Assigned Neuroscience Provider 05/15/23 11/28/24 Ruth Riddle DPM, Podiatry/Foot and Ankle Surgery [address] [place] [address] [place] [address] 42493 Assigned Musculoskeletal Provider 10/22/23 Jignesh Mathias MD [address] [place] [address] 586835 Gastroenterology 09/25/24 Adonay Haq MD [address] [place] [address] 181395 Assigned PCP 10/01/24 12/28/24 Omar Carmona MD [address] [place] [address] 55455 Assigned PCP 12/29/24 Jason Alvares MD [address] [place] [address] Assigned Neuroscience Provider 12/29/24 Jignesh Mathias MD [address] [place] [address] 55455 Assigned Surgical Provider 12/29/24 Ayad Lopez, PhD LP [address] [place] [address] Assigned Behavioral Health Provider 02/28/25 Gavi Nieto PA-C [address] [place] [address] [phone] Physician Divine Healer Dermatology 03/19/25 documented as of this encounter
--- OUTSIDE RECORDS SUMMARY | 2025-06-10 11:33 | XMS_ITS | Encounter Summary ---
Author Organization [facility] Address [address] [place] [address] Care Team Providers Care Com Writer Name Role Phone Rio Jaquez MD Primary Care Provider Barry Kilpatrick MD Unavailable Michelle Henderson I RN Unavailable [phone] Rio Jaquez MD Unavailable +[phone] Jemima Jaramillo MD Unavailable Unavai Kelley Bautista RN Unavailable +[phone] Sydnee Saleem MD Unavailable +[phone] Karlene Moya MD Unavailable Wilbert Quintero OD Unavailable +[phone] Rod Gauthier DPM Unavailable Jan Mahmood MD Unavailable +[phone] Brandt Quintana MD Unavailable [phone] Jan Mahmood MD Unavailable [phone] Rio Jaquez MD Unavailable [phone] Dom Eason MD Unavailable Jayla Plaza [...] Unavailable +[phone] Wagner Oliver MD Unavailable +[phone] Laura Epperson NP Unavailable +[phone] Thom Taveras MD Unavailable +[phone] Joesph Crowe MD Unavailable +[phone] Joesph Crowe MD Unavailable [phone] Adonay Haq MD Unavailable +1- Denilson Srinivasan MD Unavailable + [phone] Jason Alvares MD Unavailable Ruth Riddle DPM, Podiatry /Foot and Ankle Surgery Unavailable Omar Carmona MD Primary Care Provider +1- Jignesh Mathias MD Unavailable Adonay Haq MD Unavailable +1- Omar Carmona MD Unavailable +[phone] Jason Alvares MD Unavailable Jignesh Mathias MD Unavailable Ayad Lopez PhD LP Unavailable [phone] Gavi Nieto PA-C Unavailable [phone] Encounter Details Date Type Department Care Team (Late st Contact Info) Description 03/05/2023 [facility] [address] [phone] Lizbeth Lopes Social History Tobacco [...] Answer Date Recorded PHQ-2 Score 0 03/08/2023 [facility] of Occupat ional Health - Occupational Stress [...] Sex Assigned at Female 09/12/2020 12:05 PM FLAME ANNEALING MACHINE OPERATOR Legal Sex Female 3:26 AM FLAME ANNEALING MACHINE OPERATOR Gender Identity Female 09/12/2020 12:05 PM FLAME ANNEALING MACHINE OPERATOR Sexual Orientation Straight 12/19/2021 10 [...] st Contact Info) Description 06/13/2025 6:00 PM FLAME ANNEALING MACHINE OPERATOR Ancillary Procedure [facility] Imaging [facility] CT Clinic [address] [phone] Omar Carmona MD [address] [place] [address] [phone] 06/14/2025 4:00 PM FLAME ANNEALING MACHINE OPERATOR Office Visit [facility] Primary Care [address] [address] Omar Carmona MD [address] [place] [address] 092505 06/15/2025 12:45 PM FLAME ANNEALING MACHINE OPERATOR Therapy Visit [facility] Rehabilitation Services [address] [phone] Jason Alvares MD 420 [facility] 295 [place], [place] 194655 Chaya Castillo OTR [facility] 150 [place] [address] 06/19/2025 10:30 AM FLAME ANNEALING MACHINE OPERATOR Virtual Visit [facility] Primary Care [address] [address] Omar Carmona MD [address] [place] [address] 457695 TomGerson, [facility] 06/26/2025 11:00 AM FLAME ANNEALING MACHINE OPERATOR Therapy Visit [facility] 150 [place] [phone] Jason Alvares MD [address] [place] [address] Chaya Castillo OTMari [address] [address] 07/09/2025 12:45 PM FLAME ANNEALING MACHINE OPERATOR Therapy Visit [address] [phone] Jason Alvares MD [address] [place] [address] Chaya Castillo OTR [address] [address] 07/18/2025 3:00 PM FLAME ANNEALING MACHINE OPERATOR Office Visit [facility] Heart Clinic [address] [phone] Adonay Chapman APRN [address] 925275 11/05/2025 12:30 PM CDT Lab [facility] Lab [address] [address] 11/05/2025 1:45 PM CDT Office Visit [facility] Dermatology Clinic [address]rd [place] [phone] Gavi Nieto PA-C Dermatology [address] [place] [address] 11/20/2025 10:30 AM CDT Virtual Visit [address] [phone] Marquise Hanley MD [address] [place] [address] documented as of this encounter Goals Goal [...] documented as of this encounter Care Teams Com Writer Relationship Specialty Start Date End Date Rio Jaquez MD [address] [place] [address] FL 4 [place] [address] PCP - General Family Practice 12/02/10 07/13/24 Omar Carmona MD [address] [place] [address] PCP - General Family Medicine 07/14/24 Barry Kilpatrick MD [address] [place] [address] [id number] [place] [address] Neurology 07/19/14 Michelle Henderson I, RN Nurse Coordinator Neurology 07/19/14 Rio Jaquez MD [address] [place] [address] [phone] Family Practice 10/15/14 Jemima Jaramillo MD applications engineer manufacturing 11/20/14 Kelley Chin RN [address] 315835 Nurse Coordinator Cardiology 11/04/15 Sydnee Saleem MD [address] [place], [place] [address] [place] [address] Cardiology 11/04/15 Karlene Moya MD [address] [place] [address] Ophthalmology 06/24/17 Wilbert Quintero, OD [address] [place] [address] Optometry 06/24/17 Rod Gauthier DPM [address] [place] [address] Lumber Straightened Primary Podiatric Medicine 06/21/18 Jan Mahmood MD [address] [place] [address] Gastroenterology 11/05/20 Brandt Quintana MD [address] [place] [address] Resident 11/05/20 Jan Mahmood MD 516 [facility] 2A [place] [address] Assigned Gastroenterology Provider 12/01/20 Rio Jaquez MD [address] [place] [address] [address] [place], [place] 013565 Assigned PCP 11/17/20 09/30/24 Dom Eason MD 717 [facility] 353 [place], [place] 461484 Internal Medicine 12/02/20 Jayla Plaza, RN Specialty Jail Guard Hepatology 01/09/21 02/13/24 Jaimie Vernon, RN Specialty Jail Guard Cardiology 10/28/21 Ruth Riddle, DPM, Podiatry/Foot and Ankle Surgery 14241 [facility] 300 [place] [address] Assigned Musculoskeletal Provider 11/30/21 09/30/23 Marquise Hanley MD [address] [place] [address] Endocrinology, Diabetes, and Metabolism 03/05/22 Vlad Ramey MD [address] [place] [address] Cardiovascular Disease 05/07/22 Joesph Crowe MD [address] [place] [address] 56[address] Surgery 05/07/22 Luis Arrington MD [address] [place] [address] Assigned Neuroscience Provider 05/16/22 05/14/23 Michelle Padilla, RN Specialty Jail Guard Cardiology 07/03/22 Vlad Ramey MD [address] [place] [address] 229585 Assigned Heart and Vascular Provider 07/25/22 05/28/23 Marquise Hanley MD [address] [place] [address] Assigned Endocrinology Provider 08/15/22 Wagner Oliver MD [address] [place] [address] Critical Care 12/15/22 Laura Epperson NP [address] [place] [address] 1932 [place] [address] Assigned Nephrology Provider 02/20/23 08/30/24 Thom Taveras MD [address] [place] [address], [address] [address] Assigned Cancer Care Provider 02/06/23 08/20/23 Joesph Crowe MD [address] [place] [address] Surgery 03/17/23 Joesph Crowe MD [address] [place] [address] Assigned Surgical Provider 04/03/23 09/30/24 Adonay Haq MD [address] [place] [address] Internal Medicine 06/14/23October, Denilson Jackson MD 6405 [facility] [address] [place], [place] 918785 Assigned Heart and Vascular Provider 05/29/23 11/28/24 Jason Alvares MD [address] [place] [address] 632185 Assigned Neuroscience Provider 05/15/23 11/28/24 Ruth Riddle DPM, Podiatry/Foot and Ankle Surgery [address] [facility] 300 [place] [address] Assigned Musculoskeletal Provider 10/22/23 Jignesh Mathias MD [address] [place] [address] Gastroenterology 09/25/24 Adonay Haq MD [address] [place] [address] 25[address] Assigned PCP 10/01/24 12/28/24 Omar Carmona MD [address] [place] [address] 157095 Assigned PCP 12/29/24 Jason Alvares MD [address] [place] [address] 807325 Assigned Neuroscience Provider 12/29/24 Jignesh Mathias MD 909 [place], [place] 035375 Assigned Surgical Provider 12/29/24 Ayad Lopez, PhD LP [address] [place] [address] Assigned Behavioral Health Provider 02/28/25 Gavi Nieto PANavinC 500 [place] [address] Physician Weigher Packing Dermatology 03/19/25 documented as of this encounter
--- OUTSIDE RECORDS SUMMARY | 2025-06-10 11:33 | XMS_ITS | Encounter Summary ---
Author Organization [facility] Address [address] [place] [address] Care Team Providers Care Camera Assembler Name Role Phone Elsewhere, Pcp Primary Care Provider Unavailabl e Reason for Referral * Outpatient (Routine) - Authorized Specialty Diagnoses / Procedures Referred By Contjackelin t Referred To Contact Social Work Diagnoses Anomaly Heart Congenital (HCC) Bianca Baird L.I.C.S.W. [address] [place] [phone] Phone: tel: fax: [facility] Referral ID Status Reason Start Date Expiration Date V isits Requested Visits Authorized [id number] Authorized 05/08/2025 11/07/2026 1 1 Encounter Details Date Type Department Care Team (Late st Contact Info) Description 05/08/2025 Orders Only RST RO PAUL Bianca Baird L.I.C.S.W. [address] [place] [phone] Anomaly Heart Congenital (HCC) (Primary Dx) Social History Tobacco Use Types Packs/Day Years Used Date Smoking Tobacco: Every Day Cigarettes 0.5 40.9 Started: 08/09/1985 Passive Smoke Exposure: Never Smokeless Tobacco: Never Alcohol Use Standard Drinks/Week Comments Not Currently 0 (1 standard drink = 0.6 oz pur e alcohol) [facility] Utilities Answer Date Recorded In [...] Sex Assigned at Female 09/14/2023 4:26 PM BILLING ADJUDICATOR Legal Sex Female 11:56 AM BILLING ADJUDICATOR Gender Identity Female 09/14/2023 4:26 PM BILLING ADJUDICATOR Sexual Orientation Straight 09/14/2023 4: 26 PM BILLING ADJUDICATOR documented as of this encounter Plan of Treatment Scheduled Referrals Name Type Priority Associated Diagnoses Order Schedule Social Work - General consult (clinic) [facility]; Cardiovascular Disease; Congenital Heart Outpatient Referral Routine Anomaly Heart Congenital (HCC) Expected: 12/28/2025, Expires: 08/07/2026 documented as of this encounter Visit Diagnoses Diagnosis Anomaly Heart Congenital (HCC)- Primary documented in this encounter Additional Health Concerns Assessment Noted Time PHQ-9 Depression Total Score: 12 025 10:01 AM CDT documented as of this encounter Care Teams Camera Assembler Relationship Specialty Start Date End Date Elsewhere, Pcp PCP - General Internal Medicine 12/28/24 documented as of this encounter
--- OUTSIDE RECORDS SUMMARY | 2025-06-10 11:33 | XMS_ITS | Encounter Summary ---
Author Organization [facility] Address [address] [place] [address] Care Team Providers Care Blankbook Forwarder Name Role Phone Rio Jaquez MD Primary Care Provider + [phone] Barry Kilpatrick MD Unavailable Michelle Henderson RN Unavailable [phone] Rio Jaquez MD Unavailable +[phone] Jemima Jaramillo MD Unavailable Unavai Kelley Bautista RN Unavailable [phone] Sydnee Saleem MD Unavailable [phone] Karlene Moya MD Unavailable [phone] Wilbert Quintero OD Unavailable +[phone] Rod GauthierM Unavailable +[phone] Nallely Hogue RN Unavailable Unavailable Larisa Vargas RN Unavailable Unavailable Rio Jaquez MD Unavailable +[phone] Ruth Yarbrough MD Unavailable [phone] Francisco Lott MD Unavailable +[phone] Frida Grace MD Unavailable [phone] Sydnee Saleem MD Unavailable [phone] [...] Unavailable [phone] Thom Taveras MD Unavailable +[phone] Joesph Crowe MD Unavailable +[phone] Joesph Crowe MD Unavailable [phone] Adonay Haq MD Unavailable [phone] [facility] Un[facility] +[phone] [facility] Un[facility] Ruth Riddle DPM, Podiatry /Foot and Ankle Surgery Unavailable Omar Carmona MD Primary Care Provider [phone] Jignesh Mathias MD Unavailable Adonay Haq MD Unavailable [phone] Omar bragg MD Unavailable [phone] Jason Alvares MD Unavailable Jignesh Mathias MD Unavailable Ayad Lopez PhD Unavailable [phone] Gavi Nieto-C Unavailable [phone] Reason for Visit * Reason Onset Date Comments Refill Request 05/03/2020 Encounter Details Date Type Department Care Team (Late st Contact Info) Description 05/03/2020 [facility] Advice [facility] Primary [facility] Clinic [address] [phone] Rio Jaquez MD [address] [place] [address] Refill Request Social History Tobacco Use [...] Sex Assigned at Female 09/12/2020 12:05 PM LEAK DETECTOR Legal Sex Female 3:26 AM LEAK DETECTOR Gender Identity Female 09/12/2020 12:05 PM LEAK DETECTOR Sexual Orientation Straight 12/19/2021 10 :44 AM CDT Occupation Industry Job Start Date Job End Date on disability for FMS Not on file Not on file Not on file documented as of this encounter Plan of Treatment Upcoming Encounters Date Type Department Care Team (Late st Contact Info) Description 06/13/2025 6:00 PM LEAK DETECTOR Ancillary Procedure [facility] Imaging Center CT Clinic [address] [phone] Omar Carmona MD [address] [place] [address] 471775 06/14/2025 4:00 PM LEAK DETECTOR Office Visit [facility] Primary Care [address] [phone] Omar Carmona MD [address] [place] [address] [phone] 06/15/2025 12:45 PM LEAK DETECTOR Therapy Visit [facility] Rehabilitation Services [address] [phone] Jason Alvares MD [address] [place] [address] 036095 Chaya Castillo OTR [address] [address] 06/19/2025 10:30 AM LEAK DETECTOR Virtual Visit [facility] Primary Care [address] [phone] Omar Carmona MD [address] [place] [address] TomGerson [facility] 06/26/2025 11:00 AM LEAK DETECTOR Therapy Visit [facility] [address] [place] [phone] Jason Alvares MD [address] [place] [address] Chaya Castillo, OTR [address] [address] 07/09/2025 12:45 PM LEAK DETECTOR Therapy Visit [facility] 150 [place] [phone] Jason Alvares MD [address] [place] [address] Chaya Castillo OTR [address] [address] 07/18/2025 3:00 PM LEAK DETECTOR Office Visit [facility] Heart Clinic [address] [phone] Adonay Chapman APRN [address] [address] 11/05/2025 12:30 PM CDT Lab [facility] Lab [address] [place] [address] 11/05/2025 1:45 PM CDT Office Visit [facility] Dermatology Clinic [address] [place] [phone] Gavi Nieto PA-C Dermatology [address] [place] [address] 11/20/2025 10:30 AM CDT Virtual Visit [address] [phone] Marquise Hanley MD [address] [place], [place] 7[address] documented as of this encounter Goals Goal [...] documented as of this encounter Care Teams Blankbook Forwarder Relationship Specialty Start Date End Date Rio Jaquez MD [address] [place] [address] [address] [place] [address] PCP - General Family Practice 12/02/10 07/13/24 Omar Carmona MD [address] [place] [address] PCP - General Family Medicine 07/14/24 Barry Kilpatrick MD [address] [place] [address] [id number] [place] [address] Neurology 07/19/14 Michelle Henderson I, RN Nurse Coordinator Neurology 07/19/14 Rio Jaquez MD [address] [place] [address] 668875 Family Practice 10/15/14 Jemima Jaramillo MD agency service coordinator 11/20/14 Kelley Chin RN [address] 619345 Nurse Coordinator Cardiology 11/04/15 Sydnee Saleem MD [address] [place] [address] [address] [place] [address] Cardiology 11/04/15 Karlene Moya MD [address] [place] [address] Ophthalmology 06/24/17 Wilbert Quintero, OD [address] [place] [address] 232985 Optometry 06/24/17 Rod Gauthier DPM [address] [place] [address] 092875 Cheese Tester Primary Podiatric Medicine 06/21/18 Nallely Hogue, RN Registered Nurse 02/20/19 11/23/22 Larisa Vargas, TANIA Specialty Warehouse Picker Cardiology 04/18/19 03/06/22 Rio Jaquez MD [address] [place] [address] 789335 Assigned PCP 12/28/19 11/16/20 Ruth Yarbrough MD [address] [place] [address] [address] [place] [address] Assigned Endocrinology Provider 05/31/20 09/28/20 Francisco Lott MD 515 [facility] [address] [place] [address] Assigned Rheumatology Provider 05/31/20 12/13/21 [place] [address] [place] [address] JASON ANDERSON [address] Assigned Pediatric Specialist Provider 05/31/20 09/08/20 Sydnee Saleem MD [address] [place] [address] Assigned Heart and Vascular Provider 05/31/20 10/22/20 Greg Ortega MD [address] [place] [address] Assigned Surgical Provider 06/23/20 12/06/21 Frida Grace MD [address] [place] [address] JASON ANDERSON [address] Assigned Surgical Provider 05/31/20 06/22/20 Jan Mahmood MD 6 [facility] [address] [place] [address] Gastroenterology 11/05/20 Brandt Quintana MD [address] [place] [address] Resident 11/05/20 Jan Mahmood MD [address] [place] [address] [address] [place] [address] Assigned Gastroenterology Provider 12/01/20 Rio Jaquez MD 909 [facility] [place] [address] [place] [address] Assigned PCP 11/17/20 09/30/24 Dom Eason MD [address] [place] [address] [address] [place] [address] Internal Medicine 12/02/20 Jayla Plaza, RN Specialty Warehouse Picker Hepatology 01/09/21 02/13/24 Jayla Plaza, RN Specialty Warehouse Picker Hepatology 01/10/21 01/10/21 Sydnee Saleem MD [address] [address] Assigned Heart and Vascular Provider 02/02/21 07/24/22 Phan Coello MD Assigned Neuroscience Provider 02/21/21 11/22/21 Cristian Barragan MD [address] [place] [address] Assigned Infectious Disease Provider 02/21/21 03/06/22 Dom Eason MD [address] [place] [address] [address] [place] [address] Assigned Nephrology Provider 04/20/21 01/02/22 Jaimie Vernon, TANIA Specialty Warehouse Picker Cardiology 10/28/21 Ruth Riddle DPM, Podiatry/Foot and Ankle Surgery [address] [place] [address] Assigned Musculoskeletal Provider 11/30/21 09/30/23 Luis Arrington MD [address] [place] [address] Assigned Neuroscience Provider 11/23/21 01/02/22 Jason Alvares MD [address] [place] [address] Assigned Neuroscience Provider 01/03/22 05/15/22 Marquise Hanley MD [address] [place] [address] Endocrinology, Diabetes, and Metabolism 03/05/22 Vlad Ramey MD [address] [place] [address] Cardiovascular Disease 05/07/22 Joesph Crowe MD [address] [place] [address] 83026 Surgery 05/07/22 Luis Arrington MD [address] [place] [address] Assigned Neuroscience Provider 05/16/22 05/14/23 Michelle Padilla, RN Specialty Warehouse Picker Cardiology 07/03/22 Vlad Ramey MD [address] [place] [address] Assigned Heart and Vascular Provider 07/25/22 05/28/23 Marquise Hanley MD [address] [place] [address] Assigned Endocrinology Provider 08/15/22 Dom Eason MD 7[address] [facility] [address] [place] [address] Assigned Nephrology Provider 11/28/22 02/19/23 Wagner Oliver MD [address] [place] [address] Critical Care 12/15/22 Laura Epperson NP [address] [place] [address] [address] [place] [address] Assigned Nephrology Provider 02/20/23 08/30/24 Thom Taveras MD [address] [place] [address], [address] [address] Assigned Cancer Care Provider 02/06/23 08/20/23 Joesph Crowe MD [address] [place] [address] 19487 Surgery 03/17/23 Joesph Crowe MD [address] [place] [address] 39560 Assigned Surgical Provider 04/03/23 09/30/24 Adonay Haq MD [address] [place] [address] Internal Medicine 06/14/23OctoberDenilson MD [address] [place] [address] Assigned Heart and Vascular Provider 05/29/23 11/28/24 Jason Alvares MD [address] [place] [address] Assigned Neuroscience Provider 05/15/23 11/28/24 Ruth Riddle DPM, Podiatry/Foot and Ankle Surgery [address] [place] [address] Assigned Musculoskeletal Provider 10/22/23 Jignesh Mathias MD [address] [place] [address] Gastroenterology 09/25/24 Adonay Haq MD [address] [place] [address] 115[address] Assigned PCP 10/01/24 12/28/24 Omar Carmona MD [address] [place] [address] 23486 Assigned PCP 12/29/24 Jason Alvares MD [address] [place] [address] Assigned Neuroscience Provider 12/29/24 Jignesh Mathias MD [address] [place] [address] 15291 Assigned Surgical Provider 12/29/24 Ayad Lopez, PhD LP [address] [place] [address] [phone] Assigned Behavioral Health Provider 02/28/25 Gavi Nieto PA-C [address] [place] [address] [phone] Physician Coordinator [employer] Dermatology 03/19/25 documented as of this encounter
--- OUTSIDE RECORDS SUMMARY | 2025-06-10 11:33 | XMS_ITS | Encounter Summary ---
Author Organization [facility] Address [address] [place] [address] Care Team Providers Care Recreational Counselor Name Role Phone Rio Jaquez MD Primary Care Provider Barry Kilpatrick MD Unavailable Michelle Henderson RN Unavailable [phone] Rio Jaquez MD Unavailable +[phone] Jemima Jaramillo MD Unavailable Rudolph Vinson MD Unavailable +[phone] Kelley Chin RN Unavailable +[phone] Sydnee Saleem MD Unavailable +[phone] [facility]ian MD Unavailable +[phone] Alexandria Nelson RN Unavailable +[phone] Karlene Moya MD Unavailable +[phone] Wilbert Quintero OD Unavailable +[phone] Rod Gauthier DPM Unavailable + [phone] Kerrie Verdin PA-C Unavailable +[phone] Nallely Hogue RN Unavailable Unavailable Larisa Vargas RN Unavailable Unavailable Rio Jaquez MD Unavailable +[phone] Ruth Yarbrough MD Unavailable +[phone] Francisco Lott MD Unavailable +[phone] Frida Grace MD Unavailable +[phone] Sydnee Saleem MD Unavailable +[phone] Greg Ortega MD Unavailable +[phone] Frida Grace MD Unavailable +[phone] Jan Mahmood MD Unavailable +[phone] Brandt Quintana MD Unavailable +[phone] Jan Mahmood MD Unavailable +[phone] Rio Jaquez MD Unavailable +[phone] Dom Eason MD Unavailable + [phone] Jayla Plaza RN Unavailable +[phone] Jayla Plaza RN Unavailable +[phone] Sydnee Saleem MD Unavailable +[phone] Phan Coello MD Unavailable Unavailable Cristian Barragan MD Unavailable +[phone] Dom Eason MD Unavailable + [phone] Jaimie Vernon RN Unavailable Unavailable Ruth Riddle DPM, Podiatry /Foot and Ankle Surgery Unavailable Luis Arrington MD Unavailable +[phone] Jason Alvares MD Unavailable Marquise Hanley MD Unavailable +[phone] Vlad Ramey MD Unavailable +[phone] Joesph Crowe MD Unavailable +[phone] Luis Arrington MD Unavailable +[phone] Michelle Padilla RN Unavailable Unavaila ble Vlad Ramey MD Unavailable +[phone] Marquise Hanley MD Unavailable +[phone] Dom Eason MD Unavailable +[phone] Wagner Oliver MD Unavailable +[phone] Laura Epperson NP Unavailable +[phone] Thom Taveras MD Unavailable +[phone] Joesph Crowe MD Unavailable +[phone] Joesph Crowe MD Unavailable +[phone] Adonay Haq MD Unavailable +[phone] OctoberDenilson MD Unavailable + [phone] Jason Alvares MD Unavailable Ruth RiddleM, Podiatry /Foot and Ankle Surgery Unavailable Omar Carmona MD Primary Care Provider [phone] Jignesh Mathias MD Unavailable Adonay Haq MD Unavailable +[phone] Omar Carmona MD Unavailable +[phone] Jason Alvares MD Unavailable Jignesh Mathias MD Unavailable Ayad Lopez PhD LP Unavailable +[phone] Gavi Nieto PA-C Unavailable +[phone] Encounter Details Date Type Department Care Team (Late st Contact Info) Description 02/11/2017 [facility] Wound Care 9[address] [facility] 4th [place] [address] Rod Gauthier DPM [address] [place] [address] Social History Tobacco Use Types Packs/Day Years Used Date Smoking Tobacco: Every Day Cigarettes 1 42.8 Started: 08/09/1982 Smokeless Tobacco: Never Alcohol Use Standard Drinks/Week Comments Yes 0 (1 standard drink = 0.6 oz pur e alcohol) occ Comments No Sex and Gender Information Value Date Recorded Sex Assigned at Female 09/12/2020 12:05 PM CAFE HELPER Legal Sex Female 3:26 AM CAFE HELPER Gender Identity Female 09/12/2020 12:05 PM CAFE HELPER Sexual Orientation Straight 12/19/2021 10 :44 AM CDT Occupation Industry Job Start Date Job End Date on disability for FMS Not on file Not on file Not on file documented as of this encounter Plan of Treatment Upcoming Encounters Date Type Department Care Team (Late st Contact Info) Description 06/13/2025 6:00 PM CAFE HELPER Ancillary Procedure [facility] Clinic [address] 1st [place] [phone] Omar Carmona MD [address] [place] [address] [phone] 06/14/2025 4:00 PM CAFE HELPER Office Visit [facility] Primary Care Clinic [address]th [place] [phone] Omar Carmona MD [address] [place] [address] [phone] 06/15/2025 12:45 PM CAFE HELPER Therapy Visit [facility] Rehabilitation Services [facility] 150 [place] [phone] Jason Alvares MD [address] [place] [address] 295 [place], [place] 008435 Chaya Castillo OTR [facility] 150 [place] [address] 06/19/2025 10:30 AM CAFE HELPER Virtual Visit [facility] [address] [place] [address] 4th [place] [phone] Omar Carmona MD [address] [place] [address] 124225 Gerson Santos, [facility] 06/26/2025 11:00 AM CAFE HELPER Therapy Visit [facility] 150 [place] [phone] Jason Alvares MD [address] [place] [address] 478425 Chaya Castillo, OTR [address] [address] 07/09/2025 12:45 PM CAFE HELPER Therapy Visit [facility] 150 [place] [phone] Jason Alvares MD [address] [place] [address] 491255 Chaya Castillo, OTR [address] [address] 07/18/2025 3:00 PM CAFE HELPER Office Visit [facility] Heart Clinic [address] [phone] Adonay Chapman APRN [facility] 500 [place], [place] 877085 11/05/2025 12:30 PM CDT Lab [facility] Lab [address] [place] [address] 11/05/2025 1:45 PM CDT Office Visit [facility] Dermatology Clinic [address] 3rd [place] [phone] Gavi Nieto PA-C Dermatology [address] [place] [address] 11/20/2025 10:30 AM CDT Virtual Visit [address] [place] [address] Marquise Hanley MD [address] [place] [address] documented as of this encounter Goals Goal [...] as of this encounter Care Teams Recreational Counselor Relationship Specialty Start Date End Date Rio Jaquez MD [address] [place] [address] [place] 4 [place] [address] PCP - General Family Practice 12/02/10 07/13/24 Omar Carmona MD [address] [place] [address] 212265 PCP - General Family Medicine 07/14/24 Barry Kilpatrick MD [address] [place] [address] [id number] [place], [place] 433605 Neurology 07/19/14 Michelle Henderson I, RN Nurse Coordinator Neurology 07/19/14 Rio Jaquez MD 909 [facility] 4 [place], [place] 219675 Family Practice 10/15/14 Jemima Jaramillo MD process pumper 11/20/14 Rudolph Leal MD Student in organized health care education/training program 11/27/14 07/04/18 Kelley Chin RN [facility] [address] [place], [place] 028865 Nurse Coordinator Cardiology 11/04/15 Sydnee Saleem MD 420 [facility] 508 [place], [place] 583465 Cardiology 11/04/15 Eduin Fraga MD 420 [facility] 480 [place], [place] 047865 Hematology 09/17/16 02/25/17 Alexandria Nelson, RN Nurse Coordinator Hematology & Oncology 09/17/16 02/25/17 Karlene Moya MD 516 [place] [address] Ophthalmology 06/24/17 Wilbert Quinetro, OD [address] [place] [address] Optometry 06/24/17 Rod Gauthier DPM [address] [place] [address] 839305 Population Health Manager Primary Podiatric Medicine 06/21/18 Kerrie Verdin PA-C [address] [place] [address] 889805 Physician Milanese Knitting Machine Operator Physician Milanese Knitting Machine Operator 06/21/1808/07 Nallely Hogue, RN Registered Nurse 02/20/19 11/23/22 Larisa Vargas, TANIA Specialty Business Law Instructor Cardiology 04/18/19 03/06/22 Rio Jaquez MD [address] [place] [address] [phone] Assigned PCP 12/28/19 11/16/20 Ruth Yarbrough MD [address] [place] [address] 101 [place], [place] 449855 Assigned Endocrinology Provider 05/31/20 09/28/20 Francisco Lott MD [address] [place] [address] 88 [place], [place] 751605 Assigned Rheumatology Provider 05/31/20 12/13/21 Frida Grace MD [facility] [place] [address] Assigned Pediatric Specialist Provider 05/31/20 09/08/20 Sydnee Saleem MD 6550 [facility] [address] [place] [address] Assigned Heart and Vascular Provider 05/31/20 10/22/20 Greg Ortega MD 909 [place] [address] Assigned Surgical Provider 06/23/20 12/06/21 Frida Grace MD [facility] [place] [address] Assigned Surgical Provider 05/31/20 06/22/20 Jan Mahmood MD 6 [facility] 2A [place] [address] Gastroenterology 11/05/20 Brandt Quintana MD [facility]4 [place] [address] Resident 11/05/20 Jan Mahmood MD 6 [facility] 2A [place] [address] Assigned Gastroenterology Provider 12/01/20 Rio Jaquez MD 909 [facility] 4 [place], [place] 830285 Assigned PCP 11/17/20 09/30/24 Dom Eason MD 717 [facility] 353 [place], [place] 769994 Internal Medicine 12/02/20 Jayla Plaza, RN Specialty Business Law Instructor Hepatology 01/09/21 02/13/24 Jayla Plaza, RN Specialty Business Law Instructor Hepatology 01/10/21 01/10/21 Sydnee Saleem MD 6550 [facility] [address] [place] [address] [phone] Assigned Heart and Vascular Provider 02/02/21 07/24/22 Phan Coello MD Assigned Neuroscience Provider 02/21/21 11/22/21 Cristian Barragan MD [address] [place] [address] Assigned Infectious Disease Provider 02/21/21 03/06/22 Dom Eason MD [address] [place] [address] 353 [place] [address] Assigned Nephrology Provider 04/20/21 01/02/22 Jaimie Vernon, TANIA Specialty Business Law Instructor Cardiology 10/28/21 Ruth Riddle DPM, Podiatry/Foot and Ankle Surgery [address] 496297 Assigned Musculoskeletal Provider 11/30/21 09/30/23 Luis Arrington MD [address] [place] [address] 881105 Assigned Neuroscience Provider 11/23/21 01/02/22 Jason Alvares MD [address] [place] [address] 295 [place], [place] [phone] Assigned Neuroscience Provider 01/03/22 05/15/22 Marquise Hanley MD [address] [place] [address] 780915 Endocrinology, Diabetes, and Metabolism 03/05/22 Vlad Ramey MD [address] [place] [address] 11411 Cardiovascular Disease 05/07/22 Joesph Crowe MD [address] [place] [address] 36926 Surgery 05/07/22 Luis Arrington MD [address] [place] [address] 61419 Assigned Neuroscience Provider 05/16/22 05/14/23 Michelle Padilla RN Specialty Business Law Instructor Cardiology 07/03/22 Vlad Ramey MD [address] [place] [address] 84135 Assigned Heart and Vascular Provider 07/25/22 05/28/23 Marquise Hanley MD [address] [place] [address] 62617 Assigned Endocrinology Provider 08/15/22 Dom Eason MD [address] [place] [address] 13297 Assigned Nephrology Provider 11/28/22 02/19/23 Wagner Oliver MD [address] [place] [address] Critical Care 12/15/22 Laura Epperson NP [address] [place] [address] 1932 [place] [address] Assigned Nephrology Provider 02/20/23 08/30/24 Thom Taveras MD [address] [place], [place] 4970505 [place] [address] Assigned Cancer Care Provider 02/06/23 08/20/23 Joesph Crowe MD [address] [place] [address] 04781 MD Surgery 03/17/23 Joesph Crowe MD [address] [place] [address] 48728 Assigned Surgical Provider 04/03/23 09/30/24 Adonay Haq MD [address] [place] [address] 9[address]69 Internal Medicine 06/14/23OctoberDenilson MD 6405 [facility] [address] [place] [address] Assigned Heart and Vascular Provider 05/29/23 11/28/24 Jason Alvares MD [address] [place] [address] 295 [place] [address] Assigned Neuroscience Provider 05/15/23 11/28/24 Ruth Riddle DPM, Podiatry/Foot and Ankle Surgery [address] [place] [address] [place] [address] Assigned Musculoskeletal Provider 10/22/23 Jignesh Mathias MD [address] [place] [address] 69[address] Gastroenterology 09/25/24 Adonay Haq MD [address] [place] [address] 800895 Assigned PCP 10/01/24 12/28/24 Omar Carmona MD [address] [place] [address] 499765 Assigned PCP 12/29/24 Jason Alvares MD [address] [place] [address] 724945 Assigned Neuroscience Provider 12/29/24 Jignesh Mathias MD [address] [place] [address] 545445 Assigned Surgical Provider 12/29/24 Ayad Lopez, PhD LP [address] [place] [address] 237575 Assigned Behavioral Health Provider 02/28/25 Gavi Nieto, PA-C [address] [place] [address] 582975 Physician Milanese Knitting Machine Operator Dermatology 03/19/25 documented as of this encounter
--- OUTSIDE RECORDS SUMMARY | 2025-06-10 11:33 | XMS_ITS | Encounter Summary ---
Author Organization [facility] Address [address] [place] [address]878 Care Team Providers Care Wetlands Technician Name Role Phone Rio Jaquez MD Primary Care Provider Barry Kilpatrick MD Unavailable Michelle Henderson I RN Unavailable [phone] Rio Jaquez MD Unavailable +[phone] Jemima Jaramillo MD Unavailable Unavai Kelley Bautista RN Unavailable [phone] Sydnee Saleem MD Unavailable +[phone] Karlene Moya MD Unavailable Wilbert Quintero OD Unavailable +[phone] Rod Gauthier DPM Unavailable Jan Mahmood MD Unavailable +[phone] Brandt Quintana MD Unavailable Jan Mahmood MD Unavailable +[phone] Rio Jaquez MD Unavailable +[phone] Dom Eason MD Unavailable Jayla Plaza RN [...] Unavailable +[phone] Wagner Oliver MD Unavailable +[phone] Laura Epperson NP Unavailable +[phone] Thom Taveras MD Unavailable +[phone] Joesph Crowe MD Unavailable +[phone] Joesph Crowe MD Unavailable +[phone] Adonay Haq MD Unavailable +1- Denilson Srinivasan MD Unavailable + [phone] Jason Alvares MD Unavailable Ruth Riddle DPM, Podiatry /Foot and Ankle Surgery Unavailable Omar Carmona MD Primary Care Provider +1- Jignesh Mathias MD Unavailable Adonay Haq MD Unavailable +1- Omar Carmona MD Unavailable +[phone] Jason Alvares MD Unavailable Jignesh Mathias MD Unavailable Ayad Lopez PhD LP Unavailable +[phone] Gavi Nieto PA-C Unavailable Encounter Details Date Type Department Care Team (Late st Contact Info) Description 04/20/2023 [facility] Heart [address] [address] Michelle Padilla, RN Social History [...] Answer Date Recorded PHQ-2 Score 2 03/15/2023 [facility] [...] Sex Assigned at Female 09/12/2020 12:05 PM MASTER TAX ADVISOR Legal Sex Female 3:26 AM MASTER TAX ADVISOR Gender Identity Female 09/12/2020 12:05 PM MASTER TAX ADVISOR Sexual Orientation Straight 12/19/2021 10 :44 AM [...] st Contact Info) Description 06/13/2025 6:00 PM MASTER TAX ADVISOR Ancillary Procedure [facility] Imaging Center CT Clinic [address] [phone] Omar Carmona MD [address] [place] [address] 016945 06/14/2025 4:00 PM MASTER TAX ADVISOR Office Visit [facility] Primary Care [address] [address] Omar Carmona MD [address] [place] [address] 530925 06/15/2025 12:45 PM MASTER TAX ADVISOR Therapy Visit [facility] Rehabilitation Services [address] [phone] Jason Alvares MD 420 [facility] 295 [place], [place] 384745 Chaya Castillo OTR [facility] 150 [place] [address] 06/19/2025 10:30 AM MASTER TAX ADVISOR Virtual Visit [facility] Primary Care [address] [address] Omar Carmona MD [address] [place] [address] 710835 Tom[facility]erson, [facility] 06/26/2025 11:00 AM MASTER TAX ADVISOR Therapy Visit [facility] 150 [place] [phone] Jason Alvares MD [address] [place] [address] Chaya Castillo OTMari [address] [address] 07/09/2025 12:45 PM MASTER TAX ADVISOR Therapy Visit [address] [phone] Jason Alvares MD [address] [place] [address] Chaya Castillo OTR [address] [address] 07/18/2025 3:00 PM MASTER TAX ADVISOR Office Visit [facility] Heart Clinic [address] [phone] Adonay Chapman APRN [address] 646555 11/05/2025 12:30 PM CDT Lab [facility] Lab [address] [address] 11/05/2025 1:45 PM CDT Office Visit [facility] Dermatology Clinic [address] 3rd [place] [phone] Gavi Nieto PA-C Dermatology [address] [place] [address] 11/20/2025 10:30 AM CDT Virtual Visit [address] [phone] Marquise Hanley MD [address] [place] [address] documented as of this encounter Goals Goal [...] documented as of this encounter Care Teams Wetlands Technician Relationship Specialty Start Date End Date Rio Jaquez MD [address] [place] [address] [address] 4 [place] [address] PCP - General Family Practice 12/02/10 07/13/24 Omar Carmona MD [address] [place] [address]45 PCP - General Family Medicine 07/14/24 Barry Kilpatrick MD [address] [place] [address] [id number] [place] [address] Neurology 07/19/14 Michelle Henderson I, RN Nurse Coordinator Neurology 07/19/14 Rio Jaquez MD [address] [place] [address] 545575 Family Practice 10/15/14 Jemima Jaramillo MD taxi dancer 11/20/14 Kelley Chin RN [address] 492225 Nurse Coordinator Cardiology 11/04/15 Sydnee Saleem MD [address] [place], [place] [address] [place] [address] Cardiology 11/04/15 Karlene Moya MD [address] [place] [address] Ophthalmology 06/24/17 Wilbert Quintero, OD [address] [place] [address] Optometry 06/24/17 Rod Gauthier DPM [address] [place] [address] Head Resident Primary Podiatric Medicine 06/21/18 Jan Mahmood MD [address] [place] [address] Gastroenterology 11/05/20 Brandt Quintana MD [address] [place] [address] 9[address] Resident 11/05/20 Jan Mahmood MD 516 [facility] 2A [place] [address] Assigned Gastroenterology Provider 12/01/20 Rio Jaquez MD [address] [place] [address] [address] 4 [place], [place] 579225 Assigned PCP 11/17/20 09/30/24 Dom Eason MD 717 [facility] 353 [place], [place] 707584 Internal Medicine 12/02/20 Jayla Plaza, RN Specialty Lesson Instructor Hepatology 01/09/21 02/13/24 Jaimie Vernon, RN Specialty Lesson Instructor Cardiology 10/28/21 Ruth Riddle, DPM, Podiatry/Foot and Ankle Surgery 93888 [facility] 300 [place] [address] Assigned Musculoskeletal Provider 11/30/21 09/30/23 Marquise Hanley MD [address] [place] [address]206 Endocrinology, Diabetes, and Metabolism 03/05/22 Vlad Ramey MD [address] [place] [address] 44744 Cardiovascular Disease 05/07/22 Joesph Crowe MD [address] [place] [address] 80496 Surgery 05/07/22 Luis Arrington MD [address] [place] [address] 06921 Assigned Neuroscience Provider 05/16/22 05/14/23 Michelle Pdailla, RN Specialty Lesson Instructor Cardiology 07/03/22 Vlad Ramey MD [address] [place] [address] 403875 Assigned Heart and Vascular Provider 07/25/22 05/28/23 Marquise Hanley MD [address] [place] [address] 09311 Assigned Endocrinology Provider 08/15/22 Wagner Oliver MD [address] [place] [address] Critical Care 12/15/22 Laura Epperson NP [address] [place] [address] 1932 [place] [address] Assigned Nephrology Provider 02/20/23 08/30/24 Thom Taveras MD [address] [place] [address], [address] [address] Assigned Cancer Care Provider 02/06/23 08/20/23 Joesph Crowe MD [address] [place] [address] 79973 Surgery 03/17/23 Joesph Crowe MD [address] [place] [address] 77872 Assigned Surgical Provider 04/03/23 09/30/24 Adonay Haq MD [address] [place] [address]335 Internal Medicine 06/14/23October, Denilson Jackson MD 6405 [facility] [address] [place], [place] 193065 Assigned Heart and Vascular Provider 05/29/23 11/28/24 Jason Alvares MD [address] [place] [address] 782115 Assigned Neuroscience Provider 05/15/23 11/28/24 Ruth Riddle DPM, Podiatry/Foot and Ankle Surgery 43153 [facility] 300 [place] [address] Assigned Musculoskeletal Provider 10/22/23 Jignesh Mathias MD [address] [place] [address] 44937 Gastroenterology 09/25/24 Adonay Haq MD [address] [place] [address] 28073 Assigned PCP 10/01/24 12/28/24 Omar Carmona MD [address] [place] [address] 782435 Assigned PCP 12/29/24 Jason Alvares MD [address] [place] [address] 561505 Assigned Neuroscience Provider 12/29/24 Jignesh Mathias MD 909 [place], [place] 342415 Assigned Surgical Provider 12/29/24 Ayad Lopez, PhD LP [address] [place] [address] Assigned Behavioral Health Provider 02/28/25 Gavi Nieto PANavinC [address] [place] [address] Physician [employer] Regional Sales Manager Dermatology 03/19/25 documented as of this encounter
--- OUTSIDE RECORDS SUMMARY | 2025-06-10 11:33 | XMS_ITS | Encounter Summary ---
Author Organization [facility] Address [address] [place] [address] Care Team Providers Care Sales Account Executive Name Role Phone Rio Jaquez MD Primary Care Provider Barry Kilpatrick MD Unavailable Michelle Henderson I RN Unavailable [phone] Rio Jaquez MD Unavailable +[phone] Jemima Jaramillo MD Unavailable Unavai Kelley Bautista RN Unavailable [phone] Sydnee Saleem MD Unavailable +[phone] Karlene Moya MD Unavailable Wilbert Quintero OD Unavailable +[phone] Rod Gauthier DPM Unavailable Jan Mahmood MD Unavailable +[phone] Brandt Quintana MD Unavailable Jan Mahmood MD Unavailable +[phone] Rio Jaquez MD Unavailable +[phone] Dom Eason MD Unavailable Jayla Plaza [...] Unavailable +[phone] Wagner Oliver MD Unavailable +[phone] Laura Epperson NP Unavailable +[phone] Thom Taveras MD Unavailable +[phone] Joesph Crowe MD Unavailable [phone] Joesph Crowe MD Unavailable [phone] Adonay Haq MD Unavailable +1- Denilson Srinivasan MD Unavailable + [phone] Jason Alvares MD Unavailable Ruth Riddle DPM, Podiatry /Foot and Ankle Surgery Unavailable Omar Carmona MD Primary Care Provider +1- Jignesh Mathias MD Unavailable Adonay Haq MD Unavailable +1- Omar Carmona MD Unavailable +[phone] Jason Alvares MD Unavailable Jignesh Mathias MD Unavailable Ayad Lopez PhD LP Unavailable [phone] Gavi Nieto PA-C Unavailable Encounter Details Date Type Department Care Team (Late st Contact Info) Description 03/11/2023 MyC Medical Advice [facility] [address] [address] Jayla Plaza RN Social History [...] Answer Date Recorded PHQ-2 Score 2 03/15/2023 [facility] of Occupat ional [...] Assigned at Female 09/12/2020 12:05 PM MEDICAL DEVICE Legal Sex Female 3:26 AM MEDICAL DEVICE Gender Identity Female 09/12/2020 12:05 PM MEDICAL DEVICE Sexual Orientation Straight 12/19/2021 10 :44 AM [...] Contact Info) Description 06/13/2025 6:00 PM MEDICAL DEVICE Ancillary Procedure [facility] [address] [phone] Omar Carmona MD [address] [place] [address] [phone] 06/14/2025 4:00 PM MEDICAL DEVICE Office Visit [facility] [address] [address] Omar Carmona MD [address] [place] [address] [phone] 06/15/2025 12:45 PM MEDICAL DEVICE Therapy Visit [facility] [address] [phone] Jason Alvares MD [address] [place] [address] 295 [place], [place] [phone] Chaya Castillo OTR [facility] 150 [place] [address] 06/19/2025 10:30 AM MEDICAL DEVICE Virtual Visit [facility] [address] [phone] Omar Carmona MD [address] [place] [address] [phone] Gerson Santos, [facility] 06/26/2025 11:00 AM MEDICAL DEVICE Therapy Visit [facility] 150 [place] [phone] Jason Alvares MD [address] [place] [address] [phone] Chaya Castillo, OTR [address] [address] 07/09/2025 12:45 PM MEDICAL DEVICE Therapy Visit [facility] 150 [place] [phone] Jason Alvares MD [address] [place] [address] Chaya Castillo OTMari [address] [address] 07/18/2025 3:00 PM MEDICAL DEVICE Office Visit [facility] [address] [phone] Adonay Chapman APRN [address] 566015 11/05/2025 12:30 PM CDT Lab [facility] [address] [place] [phone] 11/05/2025 1:45 PM CDT Office Visit [facility] [address]rd [place] [phone] Gavi Nieto PA-C Dermatology [address] [place] [address] 11/20/2025 10:30 AM CDT Virtual Visit [address] [address] Marquise Hanley MD 9 [place], [place] [phone] documented as of this encounter Goals Goal [...] as of this encounter Care Teams Sales Account Executive Relationship Specialty Start Date End Date Rio Jaquez MD [address] [place] [address] [address] 4 [place] [address] PCP - General Family Practice 12/02/10 07/13/24 Omar Carmona MD [address] [place] [address] PCP - General Family Medicine 07/14/24 Barry Kilpatrick MD [address] [place] [address] [id number] [place] [address] Neurology 07/19/14 Michelle Henderson I, RN Nurse Coordinator Neurology 07/19/14 Rio Jaquez MD [address] [place] [address] 4 [place], [place] 444365 Family Practice 10/15/14 Jemima Jaramillo MD director of retail merchandising 11/20/14 Kelley Chin, [facility] [address] [place] [address] [phone] Nurse Coordinator Cardiology 11/04/15 Sydnee Saleem MD [address] [place] [address] 508 [place], [place] 558365 Cardiology 11/04/15 Karlene Moya MD [address] [place] [address] 581505 Ophthalmology 06/24/17 Wilbert Quintero, OD [address] [place] [address] [phone] Optometry 06/24/17 Rod Gauthier DPM [address] [place] [address] [phone] Final Armature Tester Primary Podiatric Medicine 06/21/18 Jan Mahmood MD [address] [place] [address] [address] [place] [address] Gastroenterology 11/05/20 Brandt Quintana MD [address] [place] [address] Resident 11/05/20 Jan Mahmood MD 516 [facility] 2[address] [place], [place] 506085 Assigned Gastroenterology Provider 12/01/20 Rio Jaquez MD [address] [place] [address] 549245 Assigned PCP 11/17/20 09/30/24 Dom Eason MD [address] [place] [address] 764104 Internal Medicine 12/02/20 Jayla Plaza, RN Specialty Naphthalene Operator Hepatology 01/09/21 02/13/24 Jaimie Vernon, RN Specialty Naphthalene Operator Cardiology 10/28/21 Ruth Riddle DPM, Podiatry/Foot and Ankle Surgery [address] [address] Assigned Musculoskeletal Provider 11/30/21 09/30/23 Marquise Hanley MD [address] [place] [address] Endocrinology, Diabetes, and Metabolism 03/05/22 Vlad Ramey MD [address] [place] [address] 447255 Cardiovascular Disease 05/07/22 Joesph Crowe MD [address] [place] [address] 449355 Surgery 05/07/22 Luis Arrington MD [address] [place] [address] 32505 Assigned Neuroscience Provider 05/16/22 05/14/23 Michelle Padilla, RN Specialty Naphthalene Operator Cardiology 07/03/22 Vlad Ramey MD [address] [place] [address] Assigned Heart and Vascular Provider 07/25/22 05/28/23 Marquise Hanley MD [address] [place] [address] 144[address] Assigned Endocrinology Provider 08/15/22 Wagner Oliver MD [address] [place] [address] Critical Care 12/15/22 Laura Epperson NP [address] [place] [address] 1932 [place] [address] Assigned Nephrology Provider 02/20/23 08/30/24 Thom Taveras MD [address] [place] [address], [address] [address] Assigned Cancer Care Provider 02/06/23 08/20/23 Joesph Crowe MD [address] [place] [address] Surgery 03/17/23 Joesph Crowe MD [address] [place] [address] Assigned Surgical Provider 04/03/23 09/30/24 Adonay Haq MD [address] [place] [address] Internal Medicine 06/14/23October, Denilson Jackson MD [address] [facility] [address] [place] [address] Assigned Heart and Vascular Provider 05/29/23 11/28/24 Jason Alvares MD [address] [place] [address] Assigned Neuroscience Provider 05/15/23 11/28/24 Ruth Riddle DPM, Podiatry/Foot and Ankle Surgery [address] [place] [address] Assigned Musculoskeletal Provider 10/22/23 Jignesh Mathias MD [address] [place] [address] Gastroenterology 09/25/24 Adonay Haq MD [address] [place] [address] Assigned PCP 10/01/24 12/28/24 Omar Carmona MD [address] [place] [address] 138[address] Assigned PCP 12/29/24 Jason Alvares MD [address] [address] Assigned Neuroscience Provider 12/29/24 Jignesh Mathias MD [address] [place] [address] [phone] Assigned Surgical Provider 12/29/24 Ayad Lopez, PhD LP [address] [place] [address] Assigned Behavioral Health Provider 02/28/25 Gavi iNeto PANavinC [address] [place] [address] Physician Show Dog Trainer Dermatology 03/19/25 documented as of this encounter
--- OUTSIDE RECORDS SUMMARY | 2025-06-10 11:33 | XMS_ITS | Clinical Summary ---
Author Organization [facility] Address [address] [place] [address] Care Team Providers Care Boring Mill Operator Name Role Phone Elsewhere, Pcp Primary Care Provider Unavailabl e Source Comments Patient records contain information from all sites at [facility]. For routine questions regarding patient records, call [phone] during business hours, M-F 8:00 AM - 5:00 PM Central Time. Record requests for emergency care only can be directed to [phone] at any time.[facility] Allergies Active Allergy Reactions Criticality Noted Date [...] 03/06/2016 Pertussis Vaccines Other (see comments) 010 Icvplxy-Ekk-Qrr Reductase Inhibitors Nausea Only,Other (see comments) High [...] (09/15/2023): Added automatically from request for surgery [id number] Bloating Abdominal 12/13/2020 Tachycardia 12/13/2020 Acute On [...] drink = 0.6 oz pur e alcohol) [facility] Utilities Answer Date Recorded In the past 12 months has th e Hydrocision, gas, oil, or water Cynny threatened to shut off services in your [...] Sex Assigned at Female 09/14/2023 4:26 PM MANAGER SOCIAL RESPONSIBILITY Legal Sex Female 11:56 AM MANAGER SOCIAL RESPONSIBILITY Gender Identity Female 09/14/2023 4:26 PM MANAGER SOCIAL RESPONSIBILITY Sexual Orientation Straight 09/14/2023 4: 26 PM MANAGER SOCIAL RESPONSIBILITY Last Filed Vital Signs Vital Sign Reading [...] ED patients; some inpatients) 06/19/2024 8:02 PM MANAGER SOCIAL RESPONSIBILITY CT CHEST ANGIOGRAM ACUTE CHEST PAIN WITH IV CONTRAST (ED ONLY) RAD - Semiurgent (Fast; most ED patients; some inpatients) 06/19/2024 5:11 PM MANAGER SOCIAL RESPONSIBILITY from Last 3 Months or Most Recently [...] Diaz M.D. LAB BLOOD ADD-ON Final Result [facility] [address] [place] [address], [place] [facility] [address] [place] [address] * Thyroid Function [place] (12/28/2024 8:48 AM CDT) TSH, Sensitive 1.0 0.3 - 4.2 mIU/L 12/28/2024 10:46 AM CDT DTL Blood (Blood, Venous) 12/28/2024 8:48 AM CDT 12/28/2024 9:29 AM CDT Hasmukh Diaz M.D. LAB BLOOD ADD-ON Final Result [facility] [address] [place] [address], [facility] [address] [place] [address] * (ABNORMAL) Comprehensive Metabolic Panel (12/28/2024 8:48 [...] Diaz M.D. LAB BLOOD ADD-ON Final Result [facility] [address] [place] [address], [facility] DTL [facility] [address] [place] [address] * BI Breast Screening Bilateral with Tomosynthesis [...] BI-RADS: 1: Negative. us Mahsa Gipson M.D. IMG BI PROCEDURES Final Res ult * US Liver Doppler (06/19/2024 8:02 PM MANAGER SOCIAL RESPONSIBILITY) Anatomical Region Laterality Modality Abdomen, Ultrasound RST LOS, Ultrasound ARZ LOS, Ultrasound FLA LOS, Procedural, Vascular Interventional NWWI LOS N/A Ultr asound Impressions 06/20/2024 7:31 AM MANAGER SOCIAL RESPONSIBILITY Patent portal vein. The finding on CT earlier today is favored to represent mixing artifact. Narrative 06/20/2024 7:31 AM MANAGER SOCIAL RESPONSIBILITY EXAM: US LIVER DOPPLER Exam performed with [...] IV Contrast (ED only) (06/19/2024 5:11 PM MANAGER SOCIAL RESPONSIBILITY) Anatomical Region Laterality Modality Chest, Cardiovascular RST LO S, Thoracic ARZ LOS, Cardiovascular FLA LOS Computed Tomography, C omputed Tomography 06/19/2024 4:33 PM MANAGER SOCIAL RESPONSIBILITY Impressions 06/19/2024 6:33 PM MANAGER SOCIAL RESPONSIBILITY 1. Partial anomalous pulmonary venous return involving [...] the associated findings. Narrative 06/19/2024 6:33 PM MANAGER SOCIAL RESPONSIBILITY EXAM: CT CHEST ANGIOGRAM ACUTE CHEST PAIN [...] 5: 100%, Occluded N: Non-diagnostic study Plaque [place]: P1: Mild (CACS1-100/SIS1-2/1-2 vessels mild plaque) P2: Moderate ([id number]/SIS3-4/1-2 vessels moderate; 3 vessels mild plaque) P3: Severe ([id number]/SIS5-7/3 vessels moderate; 1 vessel severe plaque) P4: [...] Recently Relevant to Health Maintenance Insurance MEDICARE [facility] Care Teams Boring Mill Operator Relationship Specialty Start Date End Date Elsewhere, Pcp PCP - General Internal Medicine 12/28/24
--- OUTSIDE RECORDS SUMMARY | 2025-06-10 11:33 | XMS_ITS | Encounter Summary ---
Author Organization [facility] Address [address] [place] [address] Care Team Providers Care Business Analyst Sales Operations Name Role Phone Rio Jaquez MD Primary Care Provider Barry Kilpatrick MD Unavailable Michelle Henderson I RN Unavailable [phone] Rio Jaquez MD Unavailable +[phone] Jemima Jaramillo MD Unavailable Unavai Kelley Bautista RN Unavailable [phone] Sydnee Saleem MD Unavailable [phone] Karlene Moya MD Unavailable +[phone] Wilbert Quintero OD Unavailable +[phone] Rod Gauthier DPM Unavailable Jan Mahmood MD Unavailable [phone] Brandt Quintana MD Unavailable Jan Mahmood MD Unavailable +[phone] Rio Jaquez MD Unavailable [phone] Dom Eason MD Unavailable Jayla Plaza RN [...] Unavailable +[phone] Wagner Oliver MD Unavailable [phone] Laura Epperson NP Unavailable +[phone] Thom Taveras MD Unavailable [phone] Joesph Crowe MD Unavailable [phone] Joesph Crowe MD Unavailable [phone] Adonay Haq MD Unavailable +1- Denilson Srinivasan MD Unavailable + [phone] Jason Alvares MD Unavailable Ruth Riddle DPM, Podiatry /Foot and Ankle Surgery Unavailable Omar Carmona MD Primary Care Provider +1- Jignesh Mathias MD Unavailable Adonay Haq MD Unavailable +1- Omar Carmona MD Unavailable +[phone] Jason Alvares MD Unavailable Jignesh Mathias MD Unavailable Ayad Lopez PhD LP Unavailable [phone] Gavi Nieto PA-C Unavailable Encounter Details Date Type Department Care Team (Late st Contact Info) Description 03/15/2023 [facility] Medical Advice [facility] [address] [place] [address] Shara Payne, RN Social History [...] Sex Assigned at Female 09/12/2020 12:05 PM PRODUCT INSPECTION COORDINATOR Legal Sex Female 3:26 AM PRODUCT INSPECTION COORDINATOR Gender Identity Female 09/12/2020 12:05 PM PRODUCT INSPECTION COORDINATOR Sexual Orientation Straight 12/19/2021 10 :44 [...] with infusion as scheduled. Nithya Craft Infusion Circuit Design Engineer documented in this encounter Plan of Treatment Upcoming Encounters Date Type Department Care Team (Late st Contact Info) Description 06/13/2025 6:00 PM PRODUCT INSPECTION COORDINATOR Ancillary Procedure [facility] CT Clinic [address] [phone] Omar Carmona MD [address] [place] [address] 06/14/2025 4:00 PM PRODUCT INSPECTION COORDINATOR Office Visit [facility] Clinic [address] [place] [phone] Omar Carmona MD [address] [place] [address] 863155 06/15/2025 12:45 PM PRODUCT INSPECTION COORDINATOR Therapy Visit [facility] Services [address] [phone] Jason Alvares MD [address] [place] [address] Chaya Castillo, OTR [facility] 150 [place] [address] 06/19/2025 10:30 AM PRODUCT INSPECTION COORDINATOR Virtual Visit [facility] [address] [place] [address] 4th [place] [phone] Omar Carmona MD [address] [place] [address] [phone] Gerson Santos [facility] 06/26/2025 11:00 AM PRODUCT INSPECTION COORDINATOR Therapy Visit [address] [phone] Jason Alvares MD [address] [place] [address] Chaya Castillo [facility]TR [facility] [address] [place] [address] 07/09/2025 12:45 PM PRODUCT INSPECTION COORDINATOR Therapy Visit [facility] [address] [place] [phone] Jason Alvares MD [address] [place] [address] Chaya Castillo OTR [facility] [address] [place] [address] 07/18/2025 3:00 PM PRODUCT INSPECTION COORDINATOR Office Visit [facility] Heart Clinic [address] [phone] Adonay Chapman APRN [address] 760235 11/05/2025 12:30 PM CDT Lab [facility] Lab [address] 1st [place] [phone] 11/05/2025 1:45 PM CDT Office Visit [facility] Dermatology Clinic [address] 3rd [place] [phone] Gavi Nieto PA-C Dermatology [address] [place] [address] 11/20/2025 10:30 AM CDT Virtual Visit [address] [phone] Marquise Hanley MD [address] [place] [address] 359285 documented as of this encounter Goals Goal [...] as of this encounter Care Teams Business Analyst Sales Operations Relationship Specialty Start Date End Date Rio Jaquez MD [address] [place] [address] PCP - General Family Practice 12/02/10 07/13/24 Omar Carmona MD [address] [place] [address]268 PCP - General Family Medicine 07/14/24 Barry Kilpatrick MD [address] [place] [address] [id number] [place] [address] Neurology 07/19/14 Michelle Henderson I, RN Nurse Coordinator Neurology 07/19/14 Rio Jaquez MD [address] [place] [address] FL 4 [place], [place] 178635 Family Practice 10/15/14 Jemima Jaramillo MD ediscovery project manager 11/20/14 Kelley Cihn RN [address] 738665 Nurse Coordinator Cardiology 11/04/15 Sydnee Saleem MD [address] [place] [address] 508 [place], [place] 024235 Cardiology 11/04/15 Karlene Moya MD [address] [place] [address] 176955 Ophthalmology 06/24/17 Wilbert Quintero, OD [address] [place] [address] 452605 Optometry 06/24/17 Rod Gauthier DPM [address] [place] [address] [phone] Blanket Folder Primary Podiatric Medicine 06/21/18 Jan Mahmood MD 516 [facility] 2A [place] [address] Gastroenterology 11/05/20 Brandt Quintana MD 1414 [place] [address] Resident 11/05/20 Jan Mahmood MD 516 [facility] 2[address] [place] [address] Assigned Gastroenterology Provider 12/01/20 Rio Jaquez MD 909 [facility] 4 [place], [place] 961395 Assigned PCP 11/17/20 09/30/24 Dom Eason MD 717 [facility] 353 [place] [address] Internal Medicine 12/02/20 Jayla Plaza, RN Specialty Auto Wash Buffer Hepatology 01/09/21 02/13/24 Jaimie Vernon, RN Specialty Auto Wash Buffer Cardiology 10/28/21 Ruth Riddle DPM, Podiatry/Foot and Ankle Surgery [address] [facility] [address] [place] [address] Assigned Musculoskeletal Provider 11/30/21 09/30/23 Marquise Hanley MD 909 [place] [address] Endocrinology, Diabetes, and Metabolism 03/05/22 Vlad Ramey MD [address] [place] [address] Cardiovascular Disease 05/07/22 Joesph Crowe MD [address] [place] [address] Surgery 05/07/22 Luis Arrington MD [address] [place] [address] 36560 Assigned Neuroscience Provider 05/16/22 05/14/23 Michelle Padilal RN Specialty Auto Wash Buffer Cardiology 07/03/22 Vlad Ramey MD [address] [place] [address] Assigned Heart and Vascular Provider 07/25/22 05/28/23 Marquise Hanley MD [address] [place] [address]104 Assigned Endocrinology Provider 08/15/22 Wagner Oliver MD [address] [place] [address] Critical Care 12/15/22 Laura Epperson NP 717 [facility] [address] [place] [address] Assigned Nephrology Provider 02/20/23 08/30/24 Thom Taveras MD [facility] [address] [place] [address] Assigned Cancer Care Provider 02/06/23 08/20/23 Joesph Crowe MD [address] [place] [address] 0[address] MD Surgery 03/17/23 Joesph Crowe MD [address] [place] [address] 31394 Assigned Surgical Provider 04/03/23 09/30/24 Adonay Haq MD [address] [place] [address] [phone] Internal Medicine 06/14/23OctoberDenilson MD [address] [facility] [address] [place], [place] 471985 Assigned Heart and Vascular Provider 05/29/23 11/28/24 Jason Alvares MD [address] [place] [address] 388505 Assigned Neuroscience Provider 05/15/23 11/28/24 Ruth Riddle DPM, Podiatry/Foot and Ankle Surgery [address] [place] [address] Assigned Musculoskeletal Provider 10/22/23 Jignesh Mathias MD [address] [place] [address] 075145 Gastroenterology 09/25/24 Adonay Haq MD [address] [place] [address] 928[address] Assigned PCP 10/01/24 12/28/24 Omar Carmona MD [address] [place] [address] Assigned PCP 12/29/24 Jason Alvares MD [address] [place] [address] Assigned Neuroscience Provider 12/29/24 Jignesh Mathias MD [address] [place] [address] Assigned Surgical Provider 12/29/24 Ayad Lopez, PhD LP [address] [place] [address] [phone] Assigned Behavioral Health Provider 02/28/25 Gavi Nieto, PA-C [address] [place] [address] [phone] Physician Dermatology Procedural Physician Dermatology 03/19/25 documented as of this encounter
--- OUTSIDE RECORDS SUMMARY | 2025-06-10 11:33 | XMS_ITS | Encounter Summary ---
Author Organization [facility] Address [address] [place] [address]67 Care Team Providers Care Food And Beverage Analyst Name Role Phone Rio Jaquez MD Primary Care Provider Barry Kilpatrick MD Unavailable Michelle Henderson I RN Unavailable [phone] Rio Jaquez MD Unavailable +[phone] Jemima Jaramillo MD Unavailable Unavai Kelley Bautista RN Unavailable +[phone] Sydnee Saleem MD Unavailable +[phone] Karlene Moya MD Unavailable Wilbert Quintero OD Unavailable +[phone] Rod Gauthier DPM Unavailable Jan Mahmood MD Unavailable +[phone] Brandt Quintana MD Unavailable Jan Mahmood MD Unavailable +[phone] Rio Jaquez MD Unavailable [phone] Dom Eason MD Unavailable Jayla Plaza RN [...] Unavailable +[phone] Wagner Oliver MD Unavailable +[phone] Laura Epperson NP Unavailable +[phone] Thom Taveras MD Unavailable +[phone] Joesph Crowe MD Unavailable [phone] Joesph Crowe MD Unavailable [phone] Adonay Haq MD Unavailable +1- Denilson Srinivasan MD Unavailable + [phone] Jason Alvares MD Unavailable Ruth Riddle DPM, Podiatry /Foot and Ankle Surgery Unavailable Omar Carmona MD Primary Care Provider +1- Jignesh Mathias MD Unavailable Adonay Haq MD Unavailable +1- Omar Carmona MD Unavailable +[phone] Jason Alvares MD Unavailable Jignesh Mathias MD Unavailable Ayad Lopez PhD LP Unavailable [phone] Gavi Nieto PA-C Unavailable Encounter Details Date Type Department Care Team (Late st Contact Info) Description 03/16/2023 [facility] Medical Advice [facility] Endocrinology Clinic [address] [place] [address] Shara Payne, RN Social History [...] Answer Date Recorded PHQ-2 Score 2 03/15/2023 [facility] of Occupat ional Health [...] Sex Assigned at Female 09/12/2020 12:05 PM MILLED RUBBER TENDER Legal Sex Female 3:26 AM MILLED RUBBER TENDER Gender Identity Female 09/12/2020 12:05 PM MILLED RUBBER TENDER Sexual Orientation Straight 12/19/2021 10 :44 [...] st Contact Info) Description 06/13/2025 6:00 PM MILLED RUBBER TENDER Ancillary Procedure [facility] Imaging Center CT Clinic [address] [phone] Omar Carmona MD [address] [place] [address] 237095 06/14/2025 4:00 PM MILLED RUBBER TENDER Office Visit [facility] Care [address] [phone] Omar Carmona MD [address] [place] [address] 485495 06/15/2025 12:45 PM MILLED RUBBER TENDER Therapy Visit [facility] Rehabilitation Services [address] [phone] Jason Alvares MD [address] [place] [address] 295 [place], [place] [phone] Chaya Castillo OTR [address] [address] 06/19/2025 10:30 AM MILLED RUBBER TENDER Virtual Visit [facility] Primary Care [address] [phone] Omar Carmona MD [address] [place] [address] 331835 Gerson Santos, [facility] 06/26/2025 11:00 AM MILLED RUBBER TENDER Therapy Visit [facility] [address] [place] [phone] Jason Alvares MD [address] [place] [address] 073245 Chaya Castillo, OTR [address] [address] 07/09/2025 12:45 PM MILLED RUBBER TENDER Therapy Visit [address] [phone] Jason Alvares MD [address] [place] [address] 646515 Chaya Castillo OTMari [address] [address] 07/18/2025 3:00 PM MILLED RUBBER TENDER Office Visit [facility] Heart Clinic [address] [phone] Adonay Chapman APRN [address] [address] 11/05/2025 12:30 PM CDT Lab [facility] Lab [address] [phone] 11/05/2025 1:45 PM CDT Office Visit [facility] Dermatology Clinic [address] 3rd [place] [phone] Gavi Nieto PA-C Dermatology [address] [place] [address] 11/20/2025 10:30 AM CDT Virtual Visit [address] [address] Marquise Hanley MD 9 [place] [address] documented as of this encounter Goals Goal [...] documented as of this encounter Care Teams Food And Beverage Analyst Relationship Specialty Start Date End Date Rio Jaquez MD [address] [place] [address] [address] 4 [place] [address] PCP - General Family Practice 12/02/10 07/13/24 Omar Carmona MD [address] [place] [address] 31205 PCP - General Family Medicine 07/14/24 Barry Kilpatrick MD [address] [place] [address] [id number] [place] [address] Neurology 07/19/14 Michelle Henderson I, RN Nurse Coordinator Neurology 07/19/14 Rio Jaquez MD [address] [place] [address] 4 [place], [place] 722415 Family Practice 10/15/14 Jemima Jaramillo MD lead coater 11/20/14 Kelley Chin, TANIA [facility] [address] [place] [address] 638605 Nurse Coordinator Cardiology 11/04/15 Sydnee Saleem MD [address] [place] [address] 508 [place], [place] 867855 Cardiology 11/04/15 Karlene Moya MD [address] [place] [address] 506205 Ophthalmology 06/24/17 Wilbert Quintero, OD [address] [place] [address] 212115 Optometry 06/24/17 Rod Gauthier DPM [address] [place] [address] 457725 Frozen Meat Cutter Primary Podiatric Medicine 06/21/18 Jan Mahmood MD [address] [place] [address] 2[address] [place], [place] [phone] Gastroenterology 11/05/20 Brandt Quintana MD [address] [place] [address]17 Resident 11/05/20 Jan Mahmood MD [address] [facility] 2A [place], [place] 175785 Assigned Gastroenterology Provider 12/01/20 Rio Jaquez MD [address] [place] [address] 690075 Assigned PCP 11/17/20 09/30/24 Dom Eason MD [address] [place] [address] 98933 Internal Medicine 12/02/20 Jayla Plaza, RN Specialty Plant Senior Manager Hepatology 01/09/21 02/13/24 Jaimie Vernon, RN Specialty Plant Senior Manager Cardiology 10/28/21 Ruth Riddle DPM, Podiatry/Foot and Ankle Surgery [address] [address] Assigned Musculoskeletal Provider 11/30/21 09/30/23 Marquise Hanley MD [address] [place] [address] 60336 Endocrinology, Diabetes, and Metabolism 03/05/22 Vlad Ramey MD [address] [place] [address] 143175 Cardiovascular Disease 05/07/22 Joesph Crowe MD [address] [place] [address] 78345 Surgery 05/07/22 Luis Arrington MD [address] [place] [address] 24343 Assigned Neuroscience Provider 05/16/22 05/14/23 Michelle Padilla, RN Specialty Plant Senior Manager Cardiology 07/03/22 Vlad Ramey MD [address] [place] [address] 26050 Assigned Heart and Vascular Provider 07/25/22 05/28/23 Marquise Hanley MD [address] [place] [address] 14824 Assigned Endocrinology Provider 08/15/22 Wagner Oliver MD 6401 [place] [address] Critical Care 12/15/22 Laura Epperson NP [address] [place] [address] 1932 [place] [address] Assigned Nephrology Provider 02/20/23 08/30/24 Thom Taveras MD [address] [place] [address] 13300 Assigned Cancer Care Provider 02/06/23 08/20/23 Joesph Crowe MD [address] [place] [address] 54123 Surgery 03/17/23 Joesph Crowe MD [address] [place] [address] 83051 Assigned Surgical Provider 04/03/23 09/30/24 Adonay Haq MD [address] [place] [address] 23195 Internal Medicine 06/14/23October, Denilson Jackson MD [address] [facility] [address] [place] [address] Assigned Heart and Vascular Provider 05/29/23 11/28/24 Jason Alvares MD [address] [place] [address] 47050 Assigned Neuroscience Provider 05/15/23 11/28/24 Ruth Riddle DPM, Podiatry/Foot and Ankle Surgery [address] [place] [address] Assigned Musculoskeletal Provider 10/22/23 Jignesh Mathias MD [address] [place] [address] 73211 Gastroenterology 09/25/24 Adonay Haq MD [address] [place] [address] 59366 Assigned PCP 10/01/24 12/28/24 Omar Carmona MD [address] [place] [address] 05695 Assigned PCP 12/29/24 Jason Alvares MD [address] [place] [address] 03027 Assigned Neuroscience Provider 12/29/24 Jignesh Mathias MD [address] [place] [address] Assigned Surgical Provider 12/29/24 Ayad Lopez, PhD LP [address] [place] [address] 376045 Assigned Behavioral Health Provider 02/28/25 Gavi Nieto, PANavinC [address] [place] [address] 895555 Physician Manager Education Dermatology 03/19/25 documented as of this encounter
--- OUTSIDE RECORDS SUMMARY | 2025-06-10 11:33 | XMS_ITS | Encounter Summary ---
Author Organization [facility] Address [address] [place] [address] 38322 Care Team Providers Care Student Name Role Phone Rio Jaquez MD Primary Care Provider Barry Kilpatrick MD Unavailable Michelle Henderson I RN Unavailable [phone] Rio Jaquez MD Unavailable +[phone] Jemima Jaramillo MD Unavailable Unavai Kelley aButista RN Unavailable [phone] Sydnee Saleem MD Unavailable [phone] Karlene Moya MD Unavailable +[phone] Wilbert Quintero OD Unavailable +[phone] Rod Gauthier DPM Unavailable Jan Mahmood MD Unavailable [phone] Brandt Quintana MD Unavailable [phone] Jan Mahmood MD Unavailable +[phone] Rio Jaquez MD Unavailable [phone] Dom Eason MD Unavailable Jayla Plaza [...] Unavailable +[phone] Wagner Oliver MD Unavailable +[phone] Laura Epperson NP Unavailable +[phone] Thom Taveras MD Unavailable [phone] Joesph Crowe MD Unavailable [phone] Joesph Crowe MD Unavailable [phone] Adonay Haq MD Unavailable +1- Denilson Srinivasan MD Unavailable + [phone] Jason Alvares MD Unavailable Ruth Riddle DPM, Podiatry /Foot and Ankle Surgery Unavailable Omar Carmona MD Primary Care Provider +1- Jignesh Mathias MD Unavailable Adonay Haq MD Unavailable +1- Omar Carmona MD Unavailable +[phone] Jason Alvares MD Unavailable Jignesh Mathias MD Unavailable Ayad Lopez PhD LP Unavailable Gavi Nieto PA-C Unavailable Encounter Details Date Type Department Care Team (Late st Contact Info) Description 03/11/2023 MyC Medical Advice [facility] Hepatology Clinic [address] [phone] Jayla Plaza RN Alcoholic cirrhosis [...] Answer Date Recorded PHQ-2 Score 2 03/15/2023 [facility] of Occupat ional Health - Occupational Stress [...] Sex Assigned at Female 09/12/2020 12:05 PM GEOPHYSICS TEACHER Legal Sex Female 3:26 AM GEOPHYSICS TEACHER Gender Identity Female 09/12/2020 12:05 PM GEOPHYSICS TEACHER Sexual Orientation Straight 12/19/2021 10 :44 [...] st Contact Info) Description 06/13/2025 6:00 PM GEOPHYSICS TEACHER Ancillary Procedure [facility] Imaging Center CT Clinic [address] [phone] Omar Carmona MD [address] [place] [address] 117[address] 06/14/2025 4:00 PM GEOPHYSICS TEACHER Office Visit [address] [place] [phone] Omar Carmona MD [address] [place] [address] 767[address] 06/15/2025 12:45 PM GEOPHYSICS TEACHER Therapy Visit [facility] Rehabilitation Services [address] [phone] Jason Alvares MD 420 [facility] 295 [place], [place] 187635 Chaya Castillo OTR [facility] [address] [place] [address] 06/19/2025 10:30 AM GEOPHYSICS TEACHER Virtual Visit [facility] Primary Care Clinic [address] [place] [address] 4th [place] [phone] Omar Carmona MD [address] [place] [address] 285545 Gerson Santos, MORENO 06/26/2025 11:00 AM GEOPHYSICS TEACHER Therapy Visit [facility] 150 [place] [phone] Jason Alvares MD [address] [place] [address] 568105 Chaya Castillo, OTR [address] [address] 07/09/2025 12:45 PM GEOPHYSICS TEACHER Therapy Visit [address] [phone] Jason Alvares MD [address] [place] [address] 729315 Chaya Castillo, OTR [address] [address] 07/18/2025 3:00 PM GEOPHYSICS TEACHER Office Visit [facility] Heart Clinic [address] [phone] Adonay Chapman APRN [facility] 500 [place], [place] 047145 11/05/2025 12:30 PM CDT Lab [facility] Lab [address] [place] [phone] 11/05/2025 1:45 PM CDT Office Visit [facility] Dermatology Clinic [address]rd [place] [phone] Gavi Nieto PA-C Dermatology 0 [place] [address] 11/20/2025 10:30 AM CDT Virtual Visit [address] [phone] Marquise Hanley MD [address] [place] [address] documented as of this encounter Goals Goal Patient Goal Type Associated Problems Recent Progress Patient-Stated? Author Quit smoking / using tobacco Lifestyle Rio Will MD Note: 06/25/14 planned quit date documented as of this encounter Results * (ABNORMAL) Basic metabolic panel (05/31/2023 8:18 AM CDT) [facility] Sodium 144 135 - 145 mmol/L 05/31/2023 8:46 AM CDT [facility] Comment:Reference intervals for this test were updated on 05/04/2023 to more accurately reflect our healthy population. There may be differences in the flagging of prior results with similar values performed with this method. Interpretation of those prior results can be made in the context of the updated reference intervals. Potassium 3.9 3.4 - 5.3 mmol/L 05/31/2023 8:46 AM CDT [facility] Chloride 110(H) 98 - 107 mmol/L 05/31/2023 8:46 AM CDT [facility] Carbon Dioxide (CO2) 25 22 - 29 mmol/L 05/31/2023 8:46 AM CDT [facility] Anion Gap 9 7 - 15 mmol/L 05/31/2023 8:46 AM CDT [facility] Urea Nitrogen 12.3 6.0 - 20.0 mg/dL 05/31/2023 8:46 AM CDT [facility] Creatinine 0.84 0.51 - 0.95 mg/dL 05/31/2023 8:46 AM CDT [facility] GFR Estimate 83 >60 mL/min/1. 73m2 05/31/2023 8:46 AM CDT [facility] Calcium 9.3 8.6 - 10.0 mg/dL 05/31/2023 8:46 AM CDT [facility] Glucose 100(H) 70 - 99 mg/dL 05/31/2023 8:46 AM CDT [facility] Blood STRUCTURE OF RIGHT UPPER LIMB / Unknown Venipuncture / Unknown 05/31/2023 8:18 AM CDT 05/31/2023 8:18 AM CDT us Jan Argueta MD LAB - BLOOD ORDERABLES Final Result [facility] CORE LAB [facility] Clinics and Surgery Center [address] 1st [place] [address] * (ABNORMAL) Hepatic function panel (05/31/2023 8:18 AM CDT) Pathologist [facility] Protein Total 6.9 6.4 - 8.3 g/dL 05/31/2023 8:46 AM CDT [facility] Albumin 4.2 3.5 - 5.2 g/dL 05/31/2023 8:46 AM CDT [facility] Bilirubin Total 2.1(H) <=1.2 mg/dL 05/31/2023 8:46 AM CDT [facility] Alkaline Phosphatase 70 35 - 104 U/L 05/31/2023 8:46 AM CDT [facility] AST 46(H) 0 - 45 U/L 05/31/2023 8:46 AM CDT [facility] Comment:Reference intervals for this test were updated on 01/18/2023 to more accurately reflect our healthy population. There may be differences in the flagging of prior results with similar values performed with this method. Interpretation of those prior results can be made in the context of the updated reference intervals. ALT 15 0 - 50 U/L 05/31/2023 8:46 AM CDT [facility] Comment:Reference intervals for [...] - 0.30 mg/dL 05/31/2023 8:46 AM CDT [facility] Blood STRUCTURE OF RIGHT UPPER LIMB / Unknown Venipuncture / Unknown 05/31/2023 8:18 AM CDT 05/31/2023 8:18 AM CDT Jan Argueta MD LAB - BLOOD ORDERABLES Final Result [facility] [address] 1st [place] [address] * (ABNORMAL) INR (05/31/2023 8:18 AM CDT) Pathologist [facility] INR 1.49(H) 0.85 - 1.15 05/31/2023 8:27 AM CDT [facility] Blood STRUCTURE OF RIGHT UPPER LIMB / Unknown Venipuncture / Unknown 05/31/2023 8:18 AM CDT 05/31/2023 8:18 AM CDT Jan Argueta MD LAB - BLOOD ORDERABLES Final Result [facility] [address] 1st [place] [address] * (ABNORMAL) CBC with platelets (05/31/2023 8:18 AM CDT) WBC Count 4.4 4.0 - 11.0 10e3/uL 05/31/2023 8:20 AM CDT [facility] RBC Count 4.22 3.80 - 5.20 10e6/uL 05/31/2023 8:20 AM CDT [facility] Hemoglobin 11.8 11.7 - 15.7 g/dL 05/31/2023 8:20 AM CDT [facility] Hematocrit 35.3 35.0 - 47.0 % 05/31/2023 8:20 AM CDT [facility] MCV 84 78 - 100 fL 05/31/2023 8:20 AM CDT [facility] MCH 28.0 26.5 - 33.0 pg 05/31/2023 8:20 AM CDT [facility] MCHC 33.4 31.5 - 36.5 g/dL 05/31/2023 8:20 AM CDT [facility] RDW 15.5(H) 10.0 - 15.0 % 05/31/2023 8:20 AM CDT [facility] Platelet Count 89(L) 150 - 450 10e3/uL 05/31/2023 8:20 AM CDT [facility] Blood STRUCTURE OF RIGHT UPPER LIMB / Unknown Venipuncture / Unknown 05/31/2023 8:18 AM CDT 05/31/2023 8:18 AM CDT us Jan Argueta MD LAB - BLOOD ORDERABLES Final Result [facility]ORE LAB [facility] Clinics and Surgery Center - [address] 1st [place] [address] documented in this encounter Visit Diagnoses Diagnosis [...] documented as of this encounter Care Teams Student Relationship Specialty Start Date End Date Rio Jaquez MD [address] [place] [address] 4 [place] [address] PCP - General Family Practice 12/02/10 07/13/24 Omar Carmona MD [address] [place] [address] 604345 PCP - General Family Medicine 07/14/24 Barry Kilpatrick MD [address] [place] [address] [id number] [place], [place] 970465 Neurology 07/19/14 Michelle Henderson I, RN Nurse Coordinator Neurology 07/19/14 Rio Jaquez MD [address] [place] [address] 4 [place], [place] 533015 Family Practice 10/15/14 Jemima Jaramillo MD pump station operator 11/20/14 Kelley Chin, [facility] [address] [place] [address]455 Nurse Coordinator Cardiology 11/04/15 Sydnee Saleem MD 420 [facility] 508 [place], [place] 525945 Cardiology 11/04/15 Karlene Moya MD [address] [place] [address] 832895 Ophthalmology 06/24/17 Wilbert Quintero, OD [address] [place] [address] 732825 Optometry 06/24/17 Rod Gauthier DPM [address] [place] [address] Hand Finisher Primary Podiatric Medicine 06/21/18 Jan Mahmood MD [address] [place] [address] [address] [place] [address] Gastroenterology 11/05/20 Brandt Quintana MD [address] [place] [address] 6[address] Resident 11/05/20 Jan Mahmood MD [address] [place] [address] 2[address] [place] [address] Assigned Gastroenterology Provider 12/01/20 Rio Jaquez MD [address] [place] [address] 4 [place] [address] Assigned PCP 11/17/20 09/30/24 Dom Eason MD [address] [place] [address] 353 [place] [address] Internal Medicine 12/02/20 Jayla Plaza, RN Specialty Entertainment Lawyer Hepatology 01/09/21 02/13/24 Jaimie Vernon, TANIA Specialty Entertainment Lawyer Cardiology 10/28/21 Ruth Riddle, DPM, Podiatry/Foot and Ankle Surgery [address] [facility] [address] [place] [address] Assigned Musculoskeletal Provider 11/30/21 09/30/23 Marquise Hanley MD [address] [place] [address] 27438 Endocrinology, Diabetes, and Metabolism 03/05/22 Vlad Ramey MD [address] [place] [address] 83375 Cardiovascular Disease 05/07/22 Joesph Crowe MD [address] [place] [address] 23052 Surgery 05/07/22 Luis Arrington MD [address] [place] [address] 07513 Assigned Neuroscience Provider 05/16/22 05/14/23 Michelle Padilla RN Specialty Entertainment Lawyer Cardiology 07/03/22 Vlad Ramey MD [address] [place] [address] 21149 Assigned Heart and Vascular Provider 07/25/22 05/28/23 Marquise Hanley MD [address] [place] [address] 20956 Assigned Endocrinology Provider 08/15/22 Wagner Oliver MD [address] [place] [address] Critical Care 12/15/22 Laura Epperson NP [address] [place] [address] 1932 [place] [address] Assigned Nephrology Provider 02/20/23 08/30/24 Thom Taveras MD [address] [facility], [address] [place] [address] Assigned Cancer Care Provider 02/06/23 08/20/23 Joesph Crowe MD [address] [place] [address] 70791 Surgery 03/17/23 Joesph Crowe MD [address] [place] [address] 40581 Assigned Surgical Provider 04/03/23 09/30/24 Adonay Haq MD [address] [place] [address] 442625 Internal Medicine 06/14/23OctoberDenilson MD [address] [facility] [address] [place] [address] Assigned Heart and Vascular Provider 05/29/23 11/28/24 Jason Alvares MD [address] [place] [address] [facility] [address] [place], [place] 643525 Assigned Neuroscience Provider 05/15/23 11/28/24 Ruth Riddle DPM, Podiatry/Foot and Ankle Surgery [address] [place], [place] 124247 Assigned Musculoskeletal Provider 10/22/23 Jignesh Mathias MD [address] [place] [address] 52611 Gastroenterology 09/25/24 Adonay Haq MD [address] [place] [address] 039645 Assigned PCP 10/01/24 12/28/24 Omar Carmona MD [address] [place] [address] [phone] Assigned PCP 12/29/24 Jason Alvares MD [address] [place] [address] 203435 Assigned Neuroscience Provider 12/29/24 Jignesh Mathias MD [address] [place] [address] 766635 Assigned Surgical Provider 12/29/24 Ayad Lopez, PhD LP [address] [place] [address] 100215 Assigned Behavioral Health Provider 02/28/25 Gavi Nieto PA-C [address] [place] [address] [id number] Physician Sewing Machines Salesperson Dermatology 03/19/25 documented as of this encounter
--- OUTSIDE RECORDS SUMMARY | 2025-06-10 11:33 | XMS_ITS | Encounter Summary ---
Author Organization [employer] Address [address] [place] [address]179 Care Team Providers Care Tail Board Man Name Role Phone Rio Jaquez MD Primary Care Provider Barry Kilpatrick MD Unavailable Michelle Henderson I RN Unavailable [phone] Rio Jaquez MD Unavailable +[phone] Jemima Jaramillo MD Unavailable Unavai Kelley Bautista RN Unavailable +[phone] Sydnee Saleem MD Unavailable +[phone] Karlene Moya MD Unavailable Wilbert Quintero OD Unavailable +[phone] Rod Gauthier DPM Unavailable Jan Mahmood MD Unavailable +[phone] Brandt Quintana MD Unavailable Jan Mahmood MD Unavailable +[phone] Rio Jaquez MD Unavailable +[phone] Dom Eason MD Unavailable Jayla Plaza [...] Unavailable +[phone] Wagner Oliver MD Unavailable +[phone] Laura Epperson NP Unavailable +[phone] Thom Taveras MD Unavailable +[phone] Joesph Crowe MD Unavailable +[phone] Joesph Crowe MD Unavailable +[phone] Adonay Haq MD Unavailable +1- Denilson Srinivasan MD Unavailable + [phone] Jason Alvares MD Unavailable Ruth Riddle DPM, Podiatry /Foot and Ankle Surgery Unavailable Omar Carmona MD Primary Care Provider +1- Jignesh Mathias MD Unavailable Adonay Haq MD Unavailable +1- Omar Carmona MD Unavailable +[phone] Jason Alvares MD Unavailable Jignesh Mathias MD Unavailable Ayad Lopez PhD LP Unavailable [phone] Gavi Nieto PA-C Unavailable Encounter Details Date Type Department Care Team (Late st Contact Info) Description 05/10/2023 MyC Medical Advice [facility] [address] 4th [place] [address] Rio Jaquez MD [address] [place] [address] 4 [place] [address] Social History Tobacco Use Types [...] Answer Date Recorded PHQ-2 Score 2 03/15/2023 [facility] [...] in a prison (including now)? No 08/27/2021 Adolescent Education Answer Date Record ed Getting School Help Needed Not on file 05/08 Comments No Sex and Gender Information Value Date Recorded Sex Assigned at Female 09/12/2020 12:05 PM BURR BENCH OPERATOR Legal Sex Female 3:26 AM BURR BENCH OPERATOR Gender Identity Female 09/12/2020 12:05 PM BURR BENCH OPERATOR Sexual Orientation Straight 12/19/2021 10 :44 [...] st Contact Info) Description 06/13/2025 6:00 PM BURR BENCH OPERATOR Ancillary Procedure [facility] [address]st [place] [phone] Omar Carmona MD [address] [place] [address] 297515 06/14/2025 4:00 PM BURR BENCH OPERATOR Office Visit [facility] [address]th [place] [phone] Omar Carmona MD [address] [place] [address] 934735 06/15/2025 12:45 PM BURR BENCH OPERATOR Therapy Visit [facility] [address] [address] Jason Alvares MD [address] [place] [address] 295 [place], [place] [phone] Chaya Castillo OTR [address] [place] [address] 06/19/2025 10:30 AM BURR BENCH OPERATOR Virtual Visit [facility] [address] [place] [phone] Omar Carmona MD [address] [place] [address] 109785 Gerson Santos [facility] 06/26/2025 11:00 AM BURR BENCH OPERATOR Therapy Visit [facility] [address] [place] [phone] Jason Alvares MD [address] [place] [address] Chaya Castillo OTR [facility] [address] [place] [address] 07/09/2025 12:45 PM BURR BENCH OPERATOR Therapy Visit [facility] [address] [place] [phone] Jason Alvares MD [address] [place] [address] Chaya Castillo OTR [facility] [address] [place] [address] 07/18/2025 3:00 PM BURR BENCH OPERATOR Office Visit [facility] [address] [phone] Adonay Chapman APRN [address] 216345 11/05/2025 12:30 PM CDT Lab [facility] [address] [address] 11/05/2025 1:45 PM CDT Office Visit [facility] [place] [address] [facility] 3rd [place] [phone] Gavi Nieto PA-C Dermatology [address] [place] [address] 11/20/2025 10:30 AM CDT Virtual Visit [address] [phone] Marquise Hanley MD [address] [place] [address]393 documented as of this encounter Goals Goal [...] documented as of this encounter Care Teams Tail Board Man Relationship Specialty Start Date End Date Rio Jaquez MD [address] [place] [address] 12449 PCP - General Family Practice 12/02/10 07/13/24 Omar Carmona MD [address] [place] [address] 57835 PCP - General Family Medicine 07/14/24 Barry Kilpatrick MD [address] [place] [address] [id number] [place], [place] [phone] Neurology 07/19/14 Michelle Henderson I, RN Nurse Coordinator Neurology 07/19/14 Rio Jaquez MD [address] [place] [address] [address] 4 [place] [address] Family Practice 10/15/14 Jemima Jaramillo MD security systems manager 11/20/14 Kelley Chin, TANIA [address] 950575 Nurse Coordinator Cardiology 11/04/15 Sydnee Saleem MD [address] [place] [address] [facility] [address] [place], [place] 505315 Cardiology 11/04/15 Karlene Moya MD [address] [place] [address] [phone] Ophthalmology 06/24/17 Wilbert Quintero, OD [address] [place] [address] Optometry 06/24/17 Rod Gauthier DPM [address] [place] [address] 574865 Director Of Enterprise Strategy Primary Podiatric Medicine 06/21/18 Jan Mahmood MD [address] [place] [address] [address] [place], [place] 410705 Gastroenterology 11/05/20 Brandt Quintana MD 1414 [place] [address] Resident 11/05/20 Jan Mahmood MD 516 [facility]A [place] [address] Assigned Gastroenterology Provider 12/01/20 Rio Jaquez MD 909 [facility] 4 [place], [place] 921995 Assigned PCP 11/17/20 09/30/24 Dom Eason MD 717 [facility] 353 [place] [address] Internal Medicine 12/02/20 Jayla Plaza, RN Specialty Stave Block Roller Hepatology 01/09/21 02/13/24 Jaimie Vernon, RN Specialty Stave Block Roller Cardiology 10/28/21 Ruth Riddle DPM, Podiatry/Foot and Ankle Surgery [address] [address] Assigned Musculoskeletal Provider 11/30/21 09/30/23 Marquise Hanley MD [address] [place] [address] 769175 Endocrinology, Diabetes, and Metabolism 03/05/22 Vlad Ramey MD [address] [place] [address] 865975 Cardiovascular Disease 05/07/22 Joesph Crowe MD [address] [place] [address] 72764 Surgery 05/07/22 Luis Arrington MD [address] [place] [address] 71416 Assigned Neuroscience Provider 05/16/22 05/14/23 Michelle Padilla, TANIA Specialty Stave Block Roller Cardiology 07/03/22 Vlad Ramey MD [address] [place] [address] [phone] Assigned Heart and Vascular Provider 07/25/22 05/28/23 Marquise Hanley MD [address] [place] [address] 137365 Assigned Endocrinology Provider 08/15/22 Wagner Oliver MD [address] [place] [address] Critical Care 12/15/22 Laura Epperson NP [address] [place] [address] 1932 [place] [address] Assigned Nephrology Provider 02/20/23 08/30/24 Thom Taveras MD [facility] [address] [place], [place] 365314 Assigned Cancer Care Provider 02/06/23 08/20/23 Joesph Crowe MD [address] [place] [address] 65[address] Surgery 03/17/23 Joesph Crowe MD [address] [place] [address] 88081 Assigned Surgical Provider 04/03/23 09/30/24 Adonay Haq MD [address] [place] [address]74 Internal Medicine 06/14/23October, Denilson Jackson MD 6405 [facility] CLEO Black [facility] [place], [place] 798215 Assigned Heart and Vascular Provider 05/29/23 11/28/24 Jason Alvares MD [address] [place] [address] Assigned Neuroscience Provider 05/15/23 11/28/24 Ruth Riddle DPM, Podiatry/Foot and Ankle Surgery [address] [place] [address] Assigned Musculoskeletal Provider 10/22/23 Jignesh Mathias MD [address] [place] [address]98 Gastroenterology 09/25/24 Adonay Haq MD [address] [place] [address] 10251 Assigned PCP 10/01/24 12/28/24 Omar Carmona MD [address] [place] [address] 95968 Assigned PCP 12/29/24 Jason Alvares MD [address] [address] Assigned Neuroscience Provider 12/29/24 Jignesh Mathias MD [address] [place] [address] Assigned Surgical Provider 12/29/24 Ayad Lopez, PhD LP [address] [place] [address] Assigned Behavioral Health Provider 02/28/25 Gavi Nieto, PA-C [address] [place] [address] [phone] Physician Furnace Builder Dermatology 03/19/25 documented as of this encounter
--- OUTSIDE RECORDS SUMMARY | 2025-06-10 11:34 | XMS_ITS | Encounter Summary ---
Author Organization [employer] Address [address] [place] [address] Care Team Providers Care Power Line Lineman Name Role Phone Rio Jaquez MD Primary Care Provider + [phone] Barry Kilpatrick MD Unavailable Michelle Henderson RN Unavailable [phone] Rio Jaquez MD Unavailable +[phone] Jemima Jaramillo MD Unavailable Unavai Kelley Bautista RN Unavailable +[phone] Sydnee Saleem MD Unavailable +[phone] Karlene Moya MD Unavailable +[phone] Wilbert Quintero OD Unavailable +[phone] Rod Gauthier DPM Unavailable +[phone] Nallely Hogue RN Unavailable Unavailable Jan Mahmood MD Unavailable +[phone] Brandt Quintana MD Unavailable +[phone] Jan Mahmood MD Unavailable +[phone] Rio Jaquez MD Unavailable +[phone] Dom Eason MD Unavailable +[phone] Jayla Plaza RN Unavailable +[phone] Sydnee Saleem MD Unavailable +[phone] Jaimie Vernon RN Unavailable Unavailable Ruth RiddleM, Podiatry /Foot and Ankle Surgery Unavailable Marquise [place] MD Unavailable +[phone] Vlad Ramey MD Unavailable +[phone] Joesph Crowe MD Unavailable + [phone] Luis Arrintgon MD Unavailable +[phone] Michelle Padilla RN Unavailable Unavaila ble Vlad Ramey MD Unavailable +[phone] Marquise [place] MD Unavailable +[phone] Dom Eason MD Unavailable +[phone] Wagner Oliver MD Unavailable +[phone] ZeenatLaura rodriguez NP Unavailable +[phone] Thom Taveras MD Unavailable +[phone] Joesph Crowe MD Unavailable +[phone] Joesph Crowe MD Unavailable + [phone] Adonay Haq MD Unavailable +[phone] Denilson Srinivasan MD Unavailable + [phone] [facility] MD Unavailable Ruth Riddle DPM, Podiatry /Foot and Ankle Surgery Unavailable Omar Carmona MD Primary Care Provider +[phone] Jignesh Mathias MD Unavailable Adonay Haq MD Unavailable +1- Omar Carmona MD Unavailable Jason Alvares MD Unavailable Jignesh Mathias MD Unavailable Ayad Lopez PhD LP Unavailable +[phone] Gavi Nieto PA-C Unavailable +[phone] Encounter Details Date Type Department Care Team (Late st Contact Info) Description 07/09/2022 MyC Medical Advice [facility] [address] [address] Vlad Ramey MD [address] [place] [address] Social History Tobacco Use Types Packs/Day [...] Score 1 06/17/2022 [facility] [...] Sex Assigned at Female 09/12/2020 12:05 PM DUTY ENGINEER Legal Sex Female 3:26 AM DUTY ENGINEER Gender Identity Female 09/12/2020 12:05 PM DUTY ENGINEER Sexual Orientation Straight 12/19/2021 10 :44 [...] Coronavirus/COVID-19? No / Unsure 06/29/2022 12:47 PM DUTY ENGINEER documented as of this encounter Plan of Treatment Upcoming Encounters Date Type Department Care Team (Late st Contact Info) Description 06/13/2025 6:00 PM DUTY ENGINEER Ancillary Procedure [facility] [address] [phone] Omar Carmona MD [address] [place] [address] [phone] 06/14/2025 4:00 PM DUTY ENGINEER Office Visit [facility] [address] [place] [phone] Omar Carmona MD [address] [place] [address] 633785 06/15/2025 12:45 PM DUTY ENGINEER Therapy Visit [facility] [address] [phone] Jason Alvares MD [address] [place] [address] 295 [place], [place] [phone] Chaya Castillo [facility]TR [facility] 150 [place] [address] 06/19/2025 10:30 AM DUTY ENGINEER Virtual Visit [facility] [address] [place] [address] 4[address] [place] [phone] Omar Carmona MD [address] [place] [address] 269745 Gerson Santos [facility] 06/26/2025 11:00 AM DUTY ENGINEER Therapy Visit [address] [phone] Jason Alvares MD [address] [place] [address] 338405 Chaya Castillo OTR [facility] 150 [place] [address] 07/09/2025 12:45 PM DUTY ENGINEER Therapy Visit [address] [phone] Jason Alvares MD [address] [place] [address] 346305 [facility] 150 [place] [address] 07/18/2025 3:00 PM DUTY ENGINEER Office Visit [facility] [address] [phone] Adonay Chapman APRN [address] 965605 11/05/2025 12:30 PM CDT Lab [facility] [address] [place] [phone] 11/05/2025 1:45 PM CDT Office Visit [facility] [address] [place] [phone] Gavi Nieto PA-C Dermatology [address] [place] [address] 11/20/2025 10:30 AM CDT Virtual Visit [address] [place] [address] Marquise Hanley MD [address] [place] [address]852 documented as of this encounter Goals Goal [...] documented as of this encounter Care Teams Power Line Lineman Relationship Specialty Start Date End Date Rio Jaquez MD [address] [place] [address] 39[address] PCP - General Family Practice 12/02/10 07/13/24 Omar Carmona MD [address] [place] [address] 16906 PCP - General Family Medicine 07/14/24 Barry Kilpatrick MD [address] [place] [address] [id number] [place] [address] Neurology 07/19/14 Michelle Henderson I, RN Nurse Coordinator Neurology 07/19/14 Rio Jaquez MD [address] [place] [address] 4 [place], [place] 728645 Family Practice 10/15/14 Jemima Jaramillo MD property handler 11/20/14 Kelley Chin RN [address] 466505 Nurse Coordinator Cardiology 11/04/15 Sydnee Saleem MD [address] [place] [address] 508 [place], [place] 647005 Cardiology 11/04/15 Karlene Moya MD [address] [place] [address] [phone] Ophthalmology 06/24/17 Wilbert Quintero, OD [address] [place] [address] 443005 Optometry 06/24/17 Rod Gauthier DPM [address] [place] [address] 245775 Gaming Director Primary Podiatric Medicine 06/21/18 Nallely Hogue, RN Registered Nurse 02/20/19 11/23/22 Jan Mahmood MD 516 [facility] 2A [place] [address] Gastroenterology 11/05/20 Brandt Quintana MD [facility] [place] [address] Resident 11/05/20 Jan Mahmood MD 6 [facility] 2A [place] [address] Assigned Gastroenterology Provider 12/01/20 Rio Jaquez MD 909 [facility] 4 [place] [address] Assigned PCP 11/17/20 09/30/24 Dom Eason MD [address] [place] [address] 353 [place] [address] Internal Medicine 12/02/20 Jayla Plaza, RN [facility] Intern Hepatology 01/09/21 02/13/24 Sydnee Saleem MD 6550 [facility] [address] [place] [address] [phone] Assigned Heart and Vascular Provider 02/02/21 07/24/22 Jaimie Vernon, TANIA [facility] Intern Cardiology 10/28/21 Ruth Riddle, DPM, Podiatry/Foot and Ankle Surgery [address] [place] [address] Assigned Musculoskeletal Provider 11/30/21 09/30/23 Marquise Hanley MD [address] [place] [address] Endocrinology, Diabetes, and Metabolism 03/05/22 Vlad Ramey MD [address] [place] [address]252 Cardiovascular Disease 05/07/22 Joesph Crowe MD [address] [place] [address]95 Surgery 05/07/22 Luis Arrington MD [address] [place] [address] 07020 Assigned Neuroscience Provider 05/16/22 05/14/23 Michelle Padilla RN [facility] Intern Cardiology 07/03/22 Vlad Ramey MD [address] [place] [address] 53434 Assigned Heart and Vascular Provider 07/25/22 05/28/23 Marquise Hanley MD [address] [place] [address] 8[address]01 Assigned Endocrinology Provider 08/15/22 Dom Eason MD [address] [place] [address] Assigned Nephrology Provider 11/28/22 02/19/23 Wagner Oliver MD [address] [place] [address] Critical Care 12/15/22 Laura Epperson NP 717 [facility] 1932 [place] [address] Assigned Nephrology Provider 02/20/23 08/30/24 Thom Taveras MD [address], [address] [place] [address] Assigned Cancer Care Provider 02/06/23 08/20/23 Joesph Crowe MD 909 [place] [address] MD Surgery 03/17/23 Joesph Crowe MD 9 [place] [address] Assigned Surgical Provider 04/03/23 09/30/24 Adonay Haq MD 9 [place], [place] 283965 Internal Medicine 06/14/23 Denilson Srinivasan MD [address] [facility] [address] [place] [address] Assigned Heart and Vascular Provider 05/29/23 11/28/24 Jason Alvares MD 420 [facility] 295 [place], [place] 714405 Assigned Neuroscience Provider 05/15/23 11/28/24 Ruth Riddle DPM, Podiatry/Foot and Ankle Surgery [address] [place], [place] 984757 Assigned Musculoskeletal Provider 10/22/23 Jignesh Mathias MD [address] [place] [address] [phone] Gastroenterology 09/25/24 Adonay Haq MD [address] [place] [address] 899535 Assigned PCP 10/01/24 12/28/24 Omar Carmona MD [address] [place] [address] 516005 Assigned PCP 12/29/24 Jason Alvares MD [address] [place] [address] 647835 Assigned Neuroscience Provider 12/29/24 Jignesh Mathias MD [address] [place] [address] [phone] Assigned Surgical Provider 12/29/24 Ayad Lopez, PhD LP [address] [place] [address] 336045 Assigned Behavioral Health Provider 02/28/25 Gavi Nieto PANavinC [address] [place] [address] 125015 Physician Chief Engineer Drilling And Recovery Dermatology 03/19/25 documented as of this encounter
--- OUTSIDE RECORDS SUMMARY | 2025-06-10 11:34 | XMS_ITS | Encounter Summary ---
Author Organization [place] Address [address] [place] [address] Care Team Providers Care Two Way Radio Technician Name Role Phone Rio Jaquez MD Primary Care Provider + [phone] Barry Kilpatrick MD Unavailable Michelle Henderson RN Unavailable +[phone] Rio Jaquez MD Unavailable +[phone] Jemima Jaramillo MD Unavailable Unavai Kelley Bautista RN Unavailable +[phone] Sydnee Saleem MD Unavailable +[phone] Karlene Moya MD Unavailable +[phone] Wilbert Quintero OD Unavailable +[phone] Rod GauthierM Unavailable +[phone] Nallely Hogue RN Unavailable Unavailable Larisa Vargas RN Unavailable Unavailable Jan Mahmood MD Unavailable +[phone] Brandt Quintana MD Unavailable +[phone] Jan Mahmood MD Unavailable +[phone] Rio Jaquez MD Unavailable +[phone] Dom Eason MD Unavailable +[phone] Jayla Plaza RN Unavailable +[phone] Sydnee [...] Unavailable +[phone] Dom Eason MD Unavailable +[phone] Wagner Oliver MD Unavailable +[phone] Laura Epperson NP Unavailable +[phone] Thom Taversa MD Unavailable +[phone] Joesph Crowe MD Unavailable +[phone] Joesph Crowe MD Unavailable + [phone] Adonay Haq MD Unavailable +[phone] Denilson Srinivasan MD Unavailable + [phone] Jason Alvares MD Unavailable Ruth Riddle DPM, Podiatry /Foot and Ankle Surgery Unavailable Omar Carmona MD Primary Care Provider +[phone] Jignesh Mathias MD Unavailable Adonay Haq MD Unavailable +[phone] Omar Carmona MD Unavailable +[phone] Jason Alvares MD Unavailable Jignesh Mathias MD Unavailable Ayad Lopez PhD LP Unavailable +[phone] Gavi Nieto PA-C Unavailable +[phone] Encounter Details Date Type Department Care Team (Late st Contact Info) Description 02/25/2022 MyC Medical Advice [facility] Hepatology [facility] [address] [address] Jayla Plaza RN Social History [...] Sex Assigned at Female 09/12/2020 12:05 PM DRAWER UPFITTER Legal Sex Female 3:26 AM DRAWER UPFITTER Gender Identity Female 09/12/2020 12:05 PM DRAWER UPFITTER Sexual Orientation Straight 12/19/2021 10 :44 AM [...] st Contact Info) Description 06/13/2025 6:00 PM DRAWER UPFITTER Ancillary Procedure [facility] CT Clinic [address] [place] [address] Omar Carmona MD [address] [place] [address] [phone] 06/14/2025 4:00 PM DRAWER UPFITTER Office Visit [facility] [address] [place] [address] Omar Carmona MD [address] [place] [address] [phone] 06/15/2025 12:45 PM DRAWER UPFITTER Therapy Visit [facility] Rehabilitation Services [address] [address] Jason Alvares MD [address] [place] [address] Chaya Castillo OTR [facility] 150 [place] [address] 06/19/2025 10:30 AM DRAWER UPFITTER Virtual Visit [facility] [address] [place] [address] 4th [place] [phone] Omar Carmona MD [address] [place] [address] 213535 Gerson Santos, [facility] 06/26/2025 11:00 AM DRAWER UPFITTER Therapy Visit [facility] 150 [place] [phone] Jason Alvares MD [address] [place] [address] 538675 Chaya Castillo OTR [facility] 150 [place] [address] 07/09/2025 12:45 PM DRAWER UPFITTER Therapy Visit [facility] 150 [place] [phone] Jason Alvares MD [address] [place] [address] 058375 Chaya Castillo OTR [facility] 150 [place] [address] 07/18/2025 3:00 PM DRAWER UPFITTER Office Visit [facility] [address] [phone] Adonay Chapman APRN [address] 144355 11/05/2025 12:30 PM CDT Lab [facility] [place] [address] [place] [address] 1st [place] [phone] 11/05/2025 1:45 PM CDT Office Visit [facility] Dermatology Clinic [address] [place] [phone] Gavi Nieto PA-C Dermatology [address] [place] [address] 11/20/2025 10:30 AM CDT Virtual Visit [address] [phone] Marquise Hanley MD [address] [place] [address] [phone] documented as of this encounter Goals Goal [...] documented as of this encounter Care Teams Two Way Radio Technician Relationship Specialty Start Date End Date Rio Jaquez MD [address] [place] [address] 87200 PCP - General Family Practice 12/02/10 07/13/24 Omar Carmona MD [address] [place] [address] 34804 PCP - General Family Medicine 07/14/24 Barry Kilpatrick MD [address] [place] [address] [id number] [place] [address] Neurology 07/19/14 Michelle Henderson RN Nurse Coordinator Neurology 07/19/14 Rio Jaquez MD [address] [place] [address] [address] 4 [place], [place] 922245 Family Practice 10/15/14 Jemima Jaramillo MD network operations specialist 11/20/14 Kelley Chin RN [address] [phone] Nurse Coordinator Cardiology 11/04/15 Sydnee Saleem MD 420 [facility] 508 [place], [place] 865545 Cardiology 11/04/15 Karlene Moya MD [address] [place] [address] 640565 Ophthalmology 06/24/17 Wilbert Quintero, OD [address] [place] [address] 897975 Optometry 06/24/17 Rod Gauthier, BILLY [address] [place] [address] 037075 Strand And Binder Controller Primary Podiatric Medicine 06/21/18 Haven, Nallely, RN Registered Nurse 02/20/19 11/23/22 Larisa Vargas, TANIA Specialty Parts Processor Cardiology 04/18/19 03/06/22 Jan Mahmood MD 516 [facility] 2A [place] [address] Gastroenterology 11/05/20 [place] [address] [place] [address] Resident 11/05/20 Jan Mahmood MD 6 [facility] 2A [place] [address] Assigned Gastroenterology Provider 12/01/20 Rio Jaquez MD 909 [facility] 4 [place] [address] Assigned PCP 11/17/20 09/30/24 Dom Eason MD 7 [facility] 353 [place] [address] Internal Medicine 12/02/20 Jayla Plaza, RN Specialty Parts Processor Hepatology 01/09/21 02/13/24 Sydnee Saleem MD 6550 [facility] [address] [place] [address] Assigned Heart and Vascular Provider 02/02/21 07/24/22 Cristian Barragan MD 2945 [place] [address] Assigned Infectious Disease Provider 02/21/21 03/06/22 Jaimie Vernon, RN Specialty Parts Processor Cardiology 10/28/21 Ruth Riddle, DPM, Podiatry/Foot and Ankle Surgery [address] [place] [address] [place] [address] Assigned Musculoskeletal Provider 11/30/21 09/30/23 Jason Alvares MD [address] [place] [address] Assigned Neuroscience Provider 01/03/22 05/15/22 Marquise Hanley MD [address] [place] [address] Endocrinology, Diabetes, and Metabolism 03/05/22 Vlad Ramey MD [address] [place] [address] 34099 Cardiovascular Disease 05/07/22 Joesph Crowe MD [address] [place] [address] 23221 Surgery 05/07/22 Luis Arrington MD [address] [place] [address] 12093 Assigned Neuroscience Provider 05/16/22 05/14/23 Michelle Padilla RN Specialty Parts Processor Cardiology 07/03/22 Vlad Ramey MD [address] [place] [address] 969[address] Assigned Heart and Vascular Provider 07/25/22 05/28/23 Marquise Hanley MD 909 [place] [address] Assigned Endocrinology Provider 08/15/22 Dom Eason MD 717 [facility] MICHAEL 353 [place] [address] Assigned Nephrology Provider 11/28/22 02/19/23 Wagner Oliver MD [address] [place] [address] Critical Care 12/15/22 Laura Epperson, HEADER SET UP OPERATOR 717 [facility] [address] [place] [address] Assigned Nephrology Provider 02/20/23 08/30/24 Thom Taveras MD [address] [place] [address] Assigned Cancer Care Provider 02/06/23 08/20/23 Joesph Crowe MD [address] [place] [address] 80465 Surgery 03/17/23 Joesph Crowe MD [address] [place] [address] 45838 Assigned Surgical Provider 04/03/23 09/30/24 Adonay Haq MD [address] [place] [address] 45267 Internal Medicine 06/14/23October, Denilson Jackson MD [address] [facility] [address] [place] [address] Assigned Heart and Vascular Provider 05/29/23 11/28/24 Jason Alvares MD [address] [place] [address] 295 [place], [place] 887545 Assigned Neuroscience Provider 05/15/23 11/28/24 Ruth Riddle DPM, Podiatry/Foot and Ankle Surgery [address] [place], [place] 234007 Assigned Musculoskeletal Provider 10/22/23 Jignesh Mathias MD [address] [place] [address] [phone] Gastroenterology 09/25/24 Adonay Haq MD [address] [place] [address] 043015 Assigned PCP 10/01/24 12/28/24 Omar Carmona MD [address] [place] [address] 741595 Assigned PCP 12/29/24 Jason Alvares MD [address] [place] [address] 295 [place], [place] 934965 Assigned Neuroscience Provider 12/29/24 Jignesh Mathias MD [address] [place] [address] 63411 Assigned Surgical Provider 12/29/24 Ayad Lopez, PhD LP [address] [place] [address] 87118 Assigned Behavioral Health Provider 02/28/25 Gavi Nieto PA-C 500 [place], [place] 036815 Physician Cold Saw Operator Dermatology 03/19/25 documented as of this encounter
--- OUTSIDE RECORDS SUMMARY | 2025-06-10 11:34 | XMS_ITS | Encounter Summary ---
Author Organization [facility] Address [address] [place] [address] 29372 Care Team Providers Care Pattern And Chain Maker Name Role Phone Rio Jaquez MD Primary Care Provider + [phone] Barry Kilpatrick MD Unavailable Michelle Henderson RN Unavailable Rio Jaquez MD Unavailable +[phone] Jemima Jaramillo MD Unavailable Unavai Kelley Bautista RN Unavailable +[phone] Sydnee Saleem MD Unavailable +[phone] Karlene Moya MD Unavailable +[phone] Wilbert Quintero OD Unavailable +[phone] Rod GauthierM Unavailable +[phone] Nallely Hogue RN Unavailable Unavailable Larisa Vargas RN Unavailable Unavailable Jan Mahmood MD Unavailable +[phone] Brandt Quintana MD Unavailable +[phone] Jan Mahmood MD Unavailable +[phone] Rio Jaquez MD Unavailable +[phone] Dom Eason MD Unavailable +[phone] Jayla Plaza RN Unavailable +[phone] Sydnee [...] Unavailable +[phone] Dom Eason MD Unavailable +[phone] Wagner Oliver MD Unavailable +[phone] Laura Epperson NP Unavailable +[phone] Thom Taveras MD Unavailable +[phone] Joesph Crowe MD Unavailable +[phone] Joesph Crowe MD Unavailable + [phone] Adonay Haq MD Unavailable +[phone] Denilson Srinivasan MD Unavailable + [phone] Jason Alvares MD Unavailable Ruth Riddle DPM, Podiatry /Foot and Ankle Surgery Unavailable Omar Carmona MD Primary Care Provider +[phone] Jignesh Mathias MD Unavailable Adonay Haq MD Unavailable +[phone] Omar Carmona MD Unavailable +[phone] Jason Alvares MD Unavailable Jignesh Mathias MD Unavailable Ayad oLpez PhD LP Unavailable +[phone] Gavi Nieto PA-C Unavailable +[phone] Encounter Details Date Type Department Care Team (Late st Contact Info) Description 02/09/2022 [facility] [place] [facility] Neurology [facility] [address] [address] Luis Arrington MD [address] [place] [address] Social History Tobacco Use Types Packs/Day [...] Sex Assigned at Female 09/12/2020 12:05 PM GEOLOGIC TECHNICIAN Legal Sex Female 3:26 AM GEOLOGIC TECHNICIAN Gender Identity Female 09/12/2020 12:05 PM GEOLOGIC TECHNICIAN Sexual Orientation Straight 12/19/2021 10 :44 [...] st Contact Info) Description 06/13/2025 6:00 PM GEOLOGIC TECHNICIAN Ancillary Procedure [facility] Imaging Center CT Clinic [address] [place] [phone] Omar Carmona MD [address] [place] [address] 06/14/2025 4:00 PM GEOLOGIC TECHNICIAN Office Visit [facility] Primary Care Clinic [address] [place] [phone] Omar Carmona MD [address] [place] [address] 19641 06/15/2025 12:45 PM GEOLOGIC TECHNICIAN Therapy Visit [facility] Rehabilitation Services [address] [address] Jason Alvares MD [address] [place] [address] 023095 Chaya Castillo [facility]TR [facility] 150 [place] [address] 06/19/2025 10:30 AM GEOLOGIC TECHNICIAN Virtual Visit [facility] Primary [facility] Clinic [address] [place] [address] 4th [place] [phone] Omar Carmona MD [address] [place] [address] [phone] Gerson Santos [facility] 06/26/2025 11:00 AM GEOLOGIC TECHNICIAN Therapy Visit [facility] 150 [place] [address] Jason Alvares MD [address] [place] [address] [facility] 150 [place] [address] 07/09/2025 12:45 PM GEOLOGIC TECHNICIAN Therapy Visit [facility] 150 [place] [address] Jason Alvares MD [address] [place] [address] [facility] 150 [place] [address] 07/18/2025 3:00 PM GEOLOGIC TECHNICIAN Office Visit [facility] Heart Clinic [address] [phone] Adonay Chapman APRN [address] [address] 11/05/2025 12:30 PM CDT Lab [facility] Lab [address] [place] [address] 11/05/2025 1:45 PM CDT Office Visit [facility] Dermatology Clinic [address] [place] [phone] Gavi Nieto PA-C Dermatology [address] [place] [address] 11/20/2025 10:30 AM CDT Virtual Visit [address] [phone] Marquise Hanley MD [address] [place] [address] 79[address] documented as of this encounter Goals Goal Patient Goal Type Associated Problems Recent Progress Patient-Stated? Author Quit smoking / using tobacco Lifestyle No Rio aJquez MD Note: 06/25/14 planned quit date documented as of this encounter Visit Diagnoses Not on filedocumented in this encounter Additional Health Concerns Infection Onset Date Last Indicated Resolved Time MRSA Comment:Added from external infection. 10/23/2020 10/21/2020 Rule Out COVID-19 02/09/2024 02/09/2024 02/09/2024 1:52 AM CDT Assessment Noted Time PHQ-9 Depression Total Score: 5 08/27/19 22 9:25 AM GEOLOGIC TECHNICIAN documented as of this encounter Care Teams Pattern And Chain Maker Relationship Specialty Start Date End Date Rio Jaquez MD [address] [place] [address] 30429 PCP - General Family Practice 12/02/10 07/13/24 mOar Carmona MD 9 [place], [place] 549305 PCP - General Family Medicine 07/14/24 Barry Kilpatrick MD [address] [place] [address] [id number] [place] 311125 Neurology 07/19/14 Michelle Henderson I, RN Nurse Coordinator Neurology 07/19/14 Rio Jaquez MD [address] [place] [address] [address] [place] 261975 Family Practice 10/15/14 Jemima Jaramillo MD lead atg developer 11/20/14 Kelley Chin, TANIA [facility] [address] [place] [address] 951795 Nurse Coordinator Cardiology 11/04/15 Sydnee Saleem MD [address] [place] [address] [address] [place], [place] 290135 Cardiology 11/04/15 Karlene Moya MD [address] [place] [address] 007545 Ophthalmology 06/24/17 Wilbert Quintero, OD [address] [place] [address] Optometry 06/24/17 Rod Gauthier DPM [address] [place] [address] 680015 Asphalt Paver Primary Podiatric Medicine 06/21/18 Nallely Hogue, RN Registered Nurse 02/20/19 11/23/22 Larisa Vargas, TANIA Specialty Emt Basic Cardiology 04/18/19 03/06/22 Jan Mahmood MD 516 [facility] [address] [place] [address] Gastroenterology 11/05/20 Brandt Quintana MD 1414 [place] [address] Resident 11/05/20 Jna Mahmood MD 516 [facility] [address] [place] [address] Assigned Gastroenterology Provider 12/01/20 Rio Jaquez MD 909 [facility] [address] [place], [place] 078705 Assigned PCP 11/17/20 09/30/24 Dom Eason MD 717 [facility] [address] [place], [place] 166204 Internal Medicine 12/02/20 Jayla lPaza, RN Specialty Emt Basic Hepatology 01/09/21 02/13/24 Sydnee Saleem MD [address] [address] Assigned Heart and Vascular Provider 02/02/21 07/24/22 Cristian Barragan MD 2945 [place] [address] Assigned Infectious Disease Provider 02/21/21 03/06/22 Jaimie Vernon, RN Specialty Emt Basic Cardiology 10/28/21 Ruth Riddle DPM, Podiatry/Foot and Ankle Surgery [address] [place] [address] Assigned Musculoskeletal Provider 11/30/21 09/30/23 Jason Alvares MD [address] [place] [address]112 Assigned Neuroscience Provider 01/03/22 05/15/22 Marquise Hanley MD [address] [place] [address] 83057 Endocrinology, Diabetes, and Metabolism 03/05/22 Vlad Ramey MD [address] [place] [address] 895445 Cardiovascular Disease 05/07/22 Joesph Crowe MD [address] [place] [address] 79115 Surgery 05/07/22 Luis Arrington MD [address] [place] [address] 52467 Assigned Neuroscience Provider 05/16/22 05/14/23 Michelle Padilla RN Specialty Emt Basic Cardiology 07/03/22 Vlad Ramey MD [address] [place] [address] 932885 Assigned Heart and Vascular Provider 07/25/22 05/28/23 Marquise Hanley MD 9 [place] [address] Assigned Endocrinology Provider 08/15/22 Dom Eason MD 717 [facility] MIC[facility]EL [address] [place] [address] Assigned Nephrology Provider 11/28/22 02/19/23 Wagner Oliver MD [address] [place] [address] Critical Care 12/15/22 Laura Epperson NP [address] [place] [address] [address] [place] [address] Assigned Nephrology Provider 02/20/23 08/30/24 Thom Taveras MD [address] [place] [address], [address] [address] Assigned Cancer Care Provider 02/06/23 08/20/23 Joesph Crowe MD [address] [place] [address]61 Surgery 03/17/23 Joesph Crowe MD [address] [place] [address] 61353 Assigned Surgical Provider 04/03/23 09/30/24 Adonay Haq MD [address] [place] [address] 15805 Internal Medicine 06/14/23October, Denilson Jackson MD [address] [place], [place] 433535 Assigned Heart and Vascular Provider 05/29/23 11/28/24 Jason Alvares MD [address] [place] [address] 99792 Assigned Neuroscience Provider 05/15/23 11/28/24 Ruth Riddle DPM, Podiatry/Foot and Ankle Surgery [address] [place] [address] Assigned Musculoskeletal Provider 10/22/23 Jignesh Mathias MD [address] [place] [address] 8[address]83 Gastroenterology 09/25/24 Adonay Haq MD [address] [place] [address] 448785 Assigned PCP 10/01/24 12/28/24 Omar Carmona MD [address] [place] [address] 41942 Assigned PCP 12/29/24 Jason Alvares MD [address] [place] [address] 491625 Assigned Neuroscience Provider 12/29/24 Jignesh Mathias MD [address] [place] [address] 08729 Assigned Surgical Provider 12/29/24 Ayad Lopez, PhD LP [address] [place] [address] 354505 Assigned Behavioral Health Provider 02/28/25 Gavi Nieto PA-C [address] [place] [address] [phone] Physician Evp Sales Dermatology 03/19/25 documented as of this encounter
--- OUTSIDE RECORDS SUMMARY | 2025-06-10 11:34 | XMS_ITS | Encounter Summary ---
Author Organization [facility] Address [address] [place] [address] 43726 Care Team Providers Care Microfilm Mounter Name Role Phone Rio Jaquez MD Primary Care Provider + [phone] Barry Kilpatrick MD Unavailable Michelle Henderson RN Unavailable +[phone] Rio Jaquez MD Unavailable +[phone] Jemima Jaramillo MD Unavailable Unavai Kelley Bautista RN Unavailable +[phone] Sydnee Saleem MD Unavailable +[phone] Karlene Moya MD Unavailable +[phone] Wilbert Quintero OD Unavailable +[phone] Rod Gauthier DPM Unavailable +[phone] Nallely Hogue RN Unavailable Unavailable Jan Mahmood MD Unavailable +[phone] Brandt Quintana MD Unavailable +[phone] Jan Mahmood MD Unavailable +[phone] Rio Jaquez MD Unavailable +[phone] Dom Eason MD Unavailable +[phone] Jayla Plaza RN Unavailable +[phone] Sydnee [...] Unavailable +[phone] Dom Eason MD Unavailable +[phone] Wagner Oliver MD Unavailable +[phone] ZeenatLaura rodriguez NP Unavailable +[phone] Thom Taveras MD Unavailable +[phone] Joesph Crowe MD Unavailable +[phone] Joesph Crowe MD Unavailable + [phone] Adonay Haq MD Unavailable +[phone] Denilson Srinivasan MD Unavailable + [phone] [facility] Unavailable Ruth Riddle DPM, Podiatry /Foot and Ankle Surgery Unavailable Omar Carmona MD Primary Care Provider +[phone] Jignesh Mathias MD Unavailable Adonay Haq MD Unavailable +1- Omar Carmona MD Unavailable Jason Alvares MD Unavailable Jignesh Mathias MD Unavailable Ayad Lopez PhD LP Unavailable Gavi Nieto PA-C Unavailable +[phone] Encounter Details Date Type Department Care Team (Late st Contact Info) Description 06/22/2022 My[facility] Medical Advice [facility] Neurology Clinic [address] 3rd [place] [address] Jason Alvares MD [address] [facility] 295 [place] [address] Seizures, post-traumatic (H) Social History [...] Answer Date Recorded PHQ-2 Score 1 06/17/2022 [facility] - Occupational [...] Sex Assigned at Female 09/12/2020 12:05 PM LEAD CUSTODIAN Legal Sex Female 3:26 AM LEAD CUSTODIAN Gender Identity Female 09/12/2020 12:05 PM LEAD CUSTODIAN Sexual Orientation Straight 12/19/2021 10 :44 AM [...] to have Coronavirus/COVID-19? Yes 06/17/2022 8:17 AM LEAD CUSTODIAN documented as of this encounter Plan of Treatment Upcoming Encounters Date Type Department Care Team (Late st Contact Info) Description 06/13/2025 6:00 PM LEAD CUSTODIAN Ancillary Procedure [facility] Imaging [facility] Clinic [address]st [place] [phone] Omar Carmona MD [address] [place] [address] 214985 06/14/2025 4:00 PM LEAD CUSTODIAN Office Visit [facility] Primary Care Clinic [address]th [place] [phone] Omar Carmona MD [address] [place] [address] 06/15/2025 12:45 PM LEAD CUSTODIAN Therapy Visit [facility] Rehabilitation Services [address] [phone] Jason Alvares MD [address] [place] [address] 295 [place], [place] 198245 Chaya Castillo, OTR [facility] 150 [place] [address] 06/19/2025 10:30 AM LEAD CUSTODIAN Virtual Visit [facility] [address] [place] [address] 4th [place] [phone] Omar Carmona MD [address] [place] [address] 550655 Gerson Santos, [facility] 06/26/2025 11:00 AM LEAD CUSTODIAN Therapy Visit [address] [phone] Jason Alvares MD [address] [place] [address] [phone] Chaya Castillo, OTR [facility] 150 [place] [address] 07/09/2025 12:45 PM LEAD CUSTODIAN Therapy Visit [address] [phone] Jason Alvares MD [address] [place] [address] 113005 Chaya Castillo, OTR [facility] 150 [place] [address] 07/18/2025 3:00 PM LEAD CUSTODIAN Office Visit [facility] Heart Clinic [address] [phone] Adonay Chapman APRN [address] 765655 11/05/2025 12:30 PM CDT Lab [facility] Lab [address] 1st [place] [phone] 11/05/2025 1:45 PM CDT Office Visit [facility] Dermatology Clinic [address]rd [place] [phone] Gavi Nieto PA-C Dermatology [address] [place] [address] 21880 11/20/2025 10:30 AM CDT Virtual Visit [address] [place] [address] Marquise Hanley MD [address] [place] [address] [phone] documented as of this encounter Goals Goal [...] documented as of this encounter Care Teams Microfilm Mounter Relationship Specialty Start Date End Date Rio Jaquez MD [address] [place] [address] 4 [place] [address] PCP - General Family Practice 12/02/10 07/13/24 Omar Carmona MD [address] [place] [address] 458375 PCP - General Family Medicine 07/14/24 Barry Kilpatrick MD [address] [place] [address] [id number] [place], [place] 134915 Neurology 07/19/14 Michelle Henderson I, RN Nurse Coordinator Neurology 07/19/14 Rio Jaquez MD [address] [place] [address] [address] 4 [place], [place] 275675 Family Practice 10/15/14 Jemima Jaramillo MD analyst geochemical prospecting 11/20/14 Kelley Chin RN [address] [phone] Nurse Coordinator Cardiology 11/04/15 Sydnee Saleem MD 420 [facility] 508 [place], [place] 519095 Cardiology 11/04/15 Karlene Moya MD [address] [place] [address] 885775 Ophthalmology 06/24/17 Wilbert Quintero, OD [address] [place] [address] 145995 Optometry 06/24/17 Rod Gauthier DPM [address] [place] [address] [phone] Public Health Clinical Nurse Specialist Primary Podiatric Medicine 06/21/18 Nallely Hogue, RN Registered Nurse 02/20/19 11/23/22 Jan Mahmood MD 516 [facility] 2A [place] [address] Gastroenterology 11/05/20 Brandt Quintana MD 1414 [place] [address] Resident 11/05/20 Jan Mahmood MD 516 [facility] 2A [place] [address] Assigned Gastroenterology Provider 12/01/20 Rio Jaquez MD 909 [facility] 4 [place], [place] 092455 Assigned PCP 11/17/20 09/30/24 Dom Eason MD [address] [place] [address] 353 [place] [address] Internal Medicine 12/02/20 Jayla Plaza, RN Specialty Race Board Attendant Hepatology 01/09/21 02/13/24 Sydnee Saleem MD [address] [place] [address] [phone] Assigned Heart and Vascular Provider 02/02/21 07/24/22 Jaimie Vernon, RN Specialty Race Board Attendant Cardiology 10/28/21 Ruth Riddle, DPM, Podiatry/Foot and Ankle Surgery 02738 [facility] MICHAEL [address] [place] [address] Assigned Musculoskeletal Provider 11/30/21 09/30/23 Marquise Hanley MD [address] [place] [address] Endocrinology, Diabetes, and Metabolism 03/05/22 Vlad Ramey MD [address] [place] [address] 46764 Cardiovascular Disease 05/07/22 Joesph Crowe MD [address] [place] [address] 02721 Surgery 05/07/22 Luis Arrington MD [address] [place] [address] 51876 Assigned Neuroscience Provider 05/16/22 05/14/23 Michelle Padilla RN Specialty Race Board Attendant Cardiology 07/03/22 Vlad Ramey MD [address] [place] [address]94 Assigned Heart and Vascular Provider 07/25/22 05/28/23 Marquise Hanley MD [address] [place] [address] 87209 Assigned Endocrinology Provider 08/15/22 Dom Eason MD [address] [place] [address] 96064 Assigned Nephrology Provider 11/28/22 02/19/23 Wagner Oliver MD [address] [place] [address] Critical Care 12/15/22 Laura Epperson NP 717 [facility] 1932 [place] [address] Assigned Nephrology Provider 02/20/23 08/30/24 Thom Taveras MD [address] [place] [address] Assigned Cancer Care Provider 02/06/23 08/20/23 Joesph Crowe MD [address] [place] [address] 92422 Surgery 03/17/23 Joesph Crowe MD [address] [place] [address] 21942 Assigned Surgical Provider 04/03/23 09/30/24 Adonay Haq MD [address] [place] [address] 054735 Internal Medicine 06/14/23OctoberDenilson MD [address] [facility] [address] [place], [place] 490005 Assigned Heart and Vascular Provider 05/29/23 11/28/24 Jason Alvares MD 420 [facility] 295 [place], [place] 557455 Assigned Neuroscience Provider 05/15/23 11/28/24 Ruth Riddle DPM, Podiatry/Foot and Ankle Surgery [address] [place] [address] Assigned Musculoskeletal Provider 10/22/23 Jignesh Mathias MD [address] [place] [address] 88311 Gastroenterology 09/25/24 Adonay Haq MD [address] [place] [address] 694355 Assigned PCP 10/01/24 12/28/24 Omar Carmona MD [address] [place] [address] 672985 Assigned PCP 12/29/24 Jason Alvares MD [address] [place] [address] 592045 Assigned Neuroscience Provider 12/29/24 Jignesh Mathias MD [address] [place] [address] 691215 Assigned Surgical Provider 12/29/24 Ayad Lopez, PhD LP [address] [place] [address] 461635 Assigned Behavioral Health Provider 02/28/25 Gavi Nieto, PA-C [address] [place] [address] 020425 Physician Statistics Professor Dermatology 03/19/25 documented as of this encounter
--- OUTSIDE RECORDS SUMMARY | 2025-06-10 11:34 | XMS_ITS | Encounter Summary ---
Author Organization [facility] Address [address] [place] [address] 28396 Care Team Providers Care Central Communications Specialist Name Role Phone Rio Jaquez MD Primary Care Provider + [phone] Barry Kilpatrick MD Unavailable Michelle Henderson RN Unavailable +[phone] Rio Jaquez MD Unavailable +[phone] Jemima Jaramillo MD Unavailable Unavai Kelley Bautista RN Unavailable +[phone] Sydnee Saleem MD Unavailable +[phone] Karlene Moya MD Unavailable +[phone] Wilbert Quintero OD Unavailable +[phone] Rod GauthierM Unavailable +[phone] Nallely Hogue RN Unavailable Unavailable Larisa Vargas RN Unavailable Unavailable Jan Mahmood MD Unavailable +[phone] Brandt Quintana MD Unavailable +[phone] Jan Mahmood MD Unavailable +[phone] Rio Jaquez MD Unavailable +[phone] Dom Eason MD Unavailable +[phone] Jayla Plaza RN Unavailable +[phone] Sydnee [...] Unavailable +[phone] Dom Eason MD Unavailable +[phone] Wagner Oliver MD Unavailable +[phone] Laura Epperson NP Unavailable +[phone] Thom Taveras MD Unavailable +[phone] Joesph Crowe MD Unavailable +[phone] Joesph Crowe MD Unavailable + [phone] Adonay Haq MD Unavailable +[phone] Denilson Srinivasan MD Unavailable + [phone] Jason Alvares MD Unavailable Ruth Riddle DPM, Podiatry /Foot and Ankle Surgery Unavailable Omar Carmona MD Primary Care Provider +[phone] Jignesh Mathias MD Unavailable Adonay Haq MD Unavailable Omar Carmona MD Unavailable +[phone] Jason Alvares MD Unavailable Jignesh Mathias MD Unavailable Ayad Lopez PhD LP Unavailable +[phone] Gavi Nieto PA-C Unavailable +[phone] Encounter Details Date Type Department Care Team (Late st Contact Info) Description 02/06/2022 [facility] Medical Advice [facility] Neurology Clinic [address] [place] [address] Jason Alvares MD 420 [facility] 295 [place] [address] Social History Tobacco Use Types [...] Date Recorded PHQ-2 Score 2 08/27/2021 [facility] [...] Sex Assigned at Female 09/12/2020 12:05 PM FELLER HAND Legal Sex Female 3:26 AM FELLER HAND Gender Identity Female 09/12/2020 12:05 PM FELLER HAND Sexual Orientation Straight 12/19/2021 10 :44 [...] st Contact Info) Description 06/13/2025 6:00 PM FELLER HAND Ancillary Procedure [facility] Imaging Center CT Clinic [address] [place] [phone] Omar Carmona MD [address] [place] [address] 30627 06/14/2025 4:00 PM FELLER HAND Office Visit [facility] Primary Care Clinic [address] 4th [place] [phone] Omar Carmona MD [address] [place] [address] 97351 06/15/2025 12:45 PM FELLER HAND Therapy Visit [facility] Rehabilitation Services [address] [address] Jason Alvares MD [address] [place] [address] 787745 Chaya Castillo OTR [facility] [address] [place] [address] 06/19/2025 10:30 AM FELLER HAND Virtual Visit [facility] Primary Care Clinic [address] [place] [address] 4th [place] [phone] Omar Carmona MD [address] [place] [address] [phone] Gerson Santos [facility] 06/26/2025 11:00 AM FELLER HAND Therapy Visit [facility] 150 [place] [phone] Jason Alvares MD [address] [place] [address] Chaya Castillo [facility] [address] [place] [address] 07/09/2025 12:45 PM FELLER HAND Therapy Visit [facility] 150 [place] [phone] Jason Alvares MD [address] [place] [address] Chaya Castillo [facility] [address] [place] [address] 07/18/2025 3:00 PM FELLER HAND Office Visit [facility] Heart Clinic [address] [phone] Adonay Chapman APRN [address] [address] 11/05/2025 12:30 PM CDT Lab [facility] Lab [address] [place] [phone] 11/05/2025 1:45 PM CDT Office Visit [facility] Dermatology Clinic [address]rd [place] [phone] Gavi Nieto PA-C Dermatology [address] [place] [address] 17088 11/20/2025 10:30 AM CDT Virtual Visit [address] [phone] Marquise Hanley MD [address] [place] [address] 09950 documented as of this encounter Goals Goal [...] Total Score: 5 08/27/19 22 9:25 AM FELLER HAND documented as of this encounter Care Teams Central Communications Specialist Relationship Specialty Start Date End Date Rio Jaquez MD [address] [place] [address] 33328 PCP - General Family Practice 12/02/10 07/13/24 Omar Carmona MD 9 [place], [place] 475615 PCP - General Family Medicine 07/14/24 Barry Kilpatrick MD [address] [place] [address] [id number] [place], [place] 979395 Neurology 07/19/14 Michelle Henderson I, RN Nurse Coordinator Neurology 07/19/14 Rio Jaquez MD [address] [place] [address] 4 [place], [place] 633145 Family Practice 10/15/14 Jemima Jaramillo MD manager case 11/20/14 Kelley Chin, TANIA [facility] [address] [place] [address] 382995 Nurse Coordinator Cardiology 11/04/15 Sydnee Saleem MD [address] [place] [address] 508 [place], [place] 328595 Cardiology 11/04/15 Karlene Moya MD [address] [place] [address] 800925 Ophthalmology 06/24/17 Wilbert Quintero, OD [address] [place] [address] Optometry 06/24/17 Rod Gauthier DPM [address] [place] [address] 593305 Ghost Writer Primary Podiatric Medicine 06/21/18 Nallely Hogue, RN Registered Nurse 02/20/19 11/23/22 Larisa Vargas, TANIA Specialty Communication Coordinator Cardiology 04/18/19 03/06/22 Jan Mahmood MD 516 [facility] 2A [place] [address] Gastroenterology 11/05/20 Brandt Quintana MD 1414 [place] [address] Resident 11/05/20 Jan Mahmood MD 516 [facility] 2A [place] [address] Assigned Gastroenterology Provider 12/01/20 Rio Jaquez MD 909 [facility] 4 [place], [place] 472315 Assigned PCP 11/17/20 09/30/24 Dom Eason MD 717 [facility] 353 [place], [place] 301104 Internal Medicine 12/02/20 Jayla Plaza, RN Specialty Communication Coordinator Hepatology 01/09/21 02/13/24 Sydnee Saleem MD [address] [address] Assigned Heart and Vascular Provider 02/02/21 07/24/22 Cristian Barragan MD 2945 [place] [address] Assigned Infectious Disease Provider 02/21/21 03/06/22 Jaimie Vernon, RN Specialty Communication Coordinator Cardiology 10/28/21 Ruth Riddle DPM, Podiatry/Foot and Ankle Surgery [address] [place] [address] Assigned Musculoskeletal Provider 11/30/21 09/30/23 Jason Alvares MD [address] [place] [address] 41953 Assigned Neuroscience Provider 01/03/22 05/15/22 Marquise Hanley MD [address] [place] [address] 20045 Endocrinology, Diabetes, and Metabolism 03/05/22 Vlad Ramey MD [address] [place] [address] 681805 Cardiovascular Disease 05/07/22 Joesph Crowe MD [address] [place] [address] 99637 Surgery 05/07/22 Luis Arrington MD [address] [place] [address] 94191 Assigned Neuroscience Provider 05/16/22 05/14/23 Michelle Padilla RN Specialty Communication Coordinator Cardiology 07/03/22 Vlad Ramey MD [address] [place] [address] 173755 Assigned Heart and Vascular Provider 07/25/22 05/28/23 Marquise Hanley MD 9 [place] [address] Assigned Endocrinology Provider 08/15/22 Dom Eason MD 717 [facility] MICHAEL [address] [place] [address] Assigned Nephrology Provider 11/28/22 02/19/23 Wagner Oliver MD [address] [place] [address] Critical Care 12/15/22 Laura Epperson NP [address] [place] [address] 1932 [place] [address] Assigned Nephrology Provider 02/20/23 08/30/24 Thom Taveras MD [address] [place] [address], [address] [address] Assigned Cancer Care Provider 02/06/23 08/20/23 Joesph Crowe MD [address] [place] [address] 66068 Surgery 03/17/23 Joesph Crowe MD [address] [place] [address] 42894 Assigned Surgical Provider 04/03/23 09/30/24 Adonay Haq MD [address] [place] [address] 11400 Internal Medicine 06/14/23October, Denilson Jackson MD [address] [place], [place] 376385 Assigned Heart and Vascular Provider 05/29/23 11/28/24 Jason Alvares MD [address] [place] [address] 76920 Assigned Neuroscience Provider 05/15/23 11/28/24 Ruth Riddle DPM, Podiatry/Foot and Ankle Surgery [address] [place] [address] Assigned Musculoskeletal Provider 10/22/23 Jignesh Mathias MD [address] [place] [address] 71855 Gastroenterology 09/25/24 Adonay Haq MD [address] [place] [address] [phone] Assigned PCP 10/01/24 12/28/24 Omar Carmona MD [address] [place] [address] 88179 Assigned PCP 12/29/24 Jason Alvares MD [address] [place] [address] 103935 Assigned Neuroscience Provider 12/29/24 Jignesh Mathias MD [address] [place] [address] 22976 Assigned Surgical Provider 12/29/24 Ayad Lopez, PhD LP [address] [place] [address] 237215 Assigned Behavioral Health Provider 02/28/25 Gavi Nieto PA-C [address] [place] [address] [phone] Physician Certifier Dermatology 03/19/25 documented as of this encounter
--- OUTSIDE RECORDS SUMMARY | 2025-06-10 11:34 | XMS_ITS | Encounter Summary ---
Author Organization [facility] Address [address] [place] [address] 9[address] Care Team Providers Care Dinkey Locomotive Engineer Name Role Phone Rio Jaquez MD Primary Care Provider + [phone] Barry Kilpatrick MD Unavailable Michelle Henderson RN Unavailable +[phone] Rio Jaquez MD Unavailable +[phone] Jemima Jaramillo MD Unavailable Unavai Kelley Bautista RN Unavailable +[phone] Sydnee Saleem MD Unavailable +[phone] Karlene Moya MD Unavailable +[phone] Wilbert Quintero OD Unavailable +[phone] Rod GauthierM Unavailable +[phone] Nallely Hogue RN Unavailable Unavailable Larisa Vargas RN Unavailable Unavailable Jan Mahmood MD Unavailable +[phone] Brandt Quintana MD Unavailable +[phone] Jan Mahmood MD Unavailable +[phone] Rio Jaquez MD Unavailable +[phone] Dom Eason MD Unavailable +[phone] Jayla Plaza RN Unavailable +[phone] Sydnee [...] Unavailable +[phone] Dom Eason MD Unavailable +[phone] Wagner Oliver MD Unavailable +[phone] Laura Epperson NP Unavailable +[phone] Thom Taveras MD Unavailable +[phone] Joesph Crowe MD Unavailable +[phone] Joesph Crowe MD Unavailable + [phone] Adonay Haq MD Unavailable +[phone] Denilson Srinivasan MD Unavailable + [phone] Jason Alvares MD Unavailable Ruth Riddle DPM, Podiatry /Foot and Ankle Surgery Unavailable Omar Carmona MD Primary Care Provider +[phone] Jignesh Mathias MD Unavailable Adonay Haq MD Unavailable +[phone] Omar Carmona MD Unavailable +[phone] Jason Alvares MD Unavailable Jignesh Mathias MD Unavailable Ayad Lopez PhD LP Unavailable +[phone] Gavi Nieto PA-C Unavailable +[phone] Encounter Details Date Type Department Care Team (Late st Contact Info) Description 02/11/2022 [facility] [place] [facility] [address] [place] [address] Alaina Moreland CMA Social History [...] Answer Date Recorded PHQ-2 Score 2 08/27/2021 [facility] - Occupational Stress Questionnaire Answer [...] Sex Assigned at Female 09/12/2020 12:05 PM CONE FORMER Legal Sex Female 3:26 AM CONE FORMER Gender Identity Female 09/12/2020 12:05 PM CONE FORMER Sexual Orientation Straight 12/19/2021 10 :44 AM [...] st Contact Info) Description 06/13/2025 6:00 PM CONE FORMER Ancillary Procedure [facility] [address] [place] [phone] Omar Carmona MD [address] [place] [address] 856735 06/14/2025 4:00 PM CONE FORMER Office Visit [facility] [address] [place] [address] Omar Carmona MD [address] [place] [address] [phone] 06/15/2025 12:45 PM CONE FORMER Therapy Visit [facility] [address] [address] Jason Alvares MD [address] [place] [address] 295 [place] [address] Chaya Castillo OTR [facility] 150 [place] [address] 06/19/2025 10:30 AM CONE FORMER Virtual Visit [facility] [address] [place] [address] 4th [place] [phone] Omar Carmona MD [address] [place] [address] [phone] Gerson Santos, [facility] 06/26/2025 11:00 AM CONE FORMER Therapy Visit [address] [phone] Jason Alvares MD [address] [place] [address] 839285 Chaya Castillo OTR [facility] 150 [place] [address] 07/09/2025 12:45 PM CONE FORMER [facility] 150 [place] [phone] Jason Alvares MD [address] [place] [address] 144615 Chaya Castillo OTR [facility] 150 [place] [address] 07/18/2025 3:00 PM CONE FORMER Office Visit [facility] [address] [phone] Adonay Chapman APRN [address] [phone] 11/05/2025 12:30 PM CDT Lab [facility] [address] 1st [place] [phone] 11/05/2025 1:45 PM CDT Office Visit [facility] [address] [place] [phone] Gavi Nieto PA-C Dermatology [address] [place] [address] 11/20/2025 10:30 AM CDT Virtual Visit [address] [address] Marquise Hanley MD [address] [place] [address] 774885 documented as of this encounter Goals Goal [...] Total Score: 5 08/27/19 22 9:25 AM CONE FORMER documented as of this encounter Care Teams Dinkey Locomotive Engineer Relationship Specialty Start Date End Date Rio Jaquez MD [address] [place] [address] [id number] PCP - General Family Practice 12/02/10 07/13/24 Omar Carmona MD [address] [place] [address] 715885 PCP - General Family Medicine 07/14/24 Barry Kilpatrick MD [address] [facility] [id number] [place], [place] 519515 Neurology 07/19/14 Michelle Henderson I, RN Nurse Coordinator Neurology 07/19/14 Rio Jaquez MD [address] [place] [address] [address] 4 [place], [place] 055115 Family Practice 10/15/14 Jemima Jaramillo MD product assembler 11/20/14 Kelley Chin RN [address] 050535 Nurse Coordinator Cardiology 11/04/15 Sydnee Saleem MD 420 [facility] 508 [place], [place] 558275 Cardiology 11/04/15 Karlene Moya MD [address] [place] [address] [phone] Ophthalmology 06/24/17 Wilbert Quintero, OD [address] [place] [address] 267115 Optometry 06/24/17 Rod Gauthier DPM [address] [place] [address] [phone] Vamp Wetter Primary Podiatric Medicine 06/21/18 Nallely Hogue, RN Registered Nurse 02/20/19 11/23/22 Larisa Vargas, TANIA Specialty Commission Specialist Cardiology 04/18/19 03/06/22 Jan Mahmood MD [address] [facility] [place] [address] Gastroenterology 11/05/20 [place] [address] [place] [address] Resident 11/05/20 Jan Mahmood MD [address] [facility] 2A [place] [address] Assigned Gastroenterology Provider 12/01/20 Rio Jaquez MD 909 [facility] 4 [place] [address] Assigned PCP 11/17/20 09/30/24 Dom Eason MD 717 [facility] 353 [place] [address] Internal Medicine 12/02/20 aJyla Plaza, RN Specialty Commission Specialist Hepatology 01/09/21 02/13/24 Sydnee Saleem MD 6550 [facility] [address] [place] [address] [phone] Assigned Heart and Vascular Provider 02/02/21 07/24/22 Cristian Barragan MD 2945 [place] [address] Assigned Infectious Disease Provider 02/21/21 03/06/22 Jaimie Vernon, TANIA Specialty Commission Specialist Cardiology 10/28/21 Ruth Riddle DPM, Podiatry/Foot and Ankle Surgery [address] [place] [address] [place] [address] Assigned Musculoskeletal Provider 11/30/21 09/30/23 Jason Alvares MD [address] [place] [address]32 Assigned Neuroscience Provider 01/03/22 05/15/22 Marquise Hanley MD [address] [place] [address] 83546 Endocrinology, Diabetes, and Metabolism 03/05/22 Vlad Ramey MD [address] [place] [address] 78741 Cardiovascular Disease 05/07/22 Joesph Crowe MD [address] [place] [address] 99345 Surgery 05/07/22 Luis Arrington MD [address] [place] [address] 34789 Assigned Neuroscience Provider 05/16/22 05/14/23 Michelle Padilla RN Specialty Commission Specialist Cardiology 07/03/22 Vlad Ramey MD [address] [place] [address] 96104 Assigned Heart and Vascular Provider 07/25/22 05/28/23 Marquise Hanley MD [address] [place] [address] 52430 Assigned Endocrinology Provider 08/15/22 Dom Eason MD 717 [facility]EL 353 [place] [address] Assigned Nephrology Provider 11/28/22 02/19/23 Wagner Oliver MD [address] [place] [address] Critical Care 12/15/22 Laura Epperson NP 7 [facility] [address] [place] [address] Assigned Nephrology Provider 02/20/23 08/30/24 Thom Taveras MD [address] [place] [address] Assigned Cancer Care Provider 02/06/23 08/20/23 Joesph Crowe MD [address] [place] [address] 8[address]61 Surgery 03/17/23 Joesph Crowe MD [address] [place] [address] 24502 Assigned Surgical Provider 04/03/23 09/30/24 Adonay Haq MD [address] [place] [address] 30533 Internal Medicine 06/14/23OctoberDenilson MD [address] [place] [address] Assigned Heart and Vascular Provider 05/29/23 11/28/24 Jason Alvares MD [address] [address] Assigned Neuroscience Provider 05/15/23 11/28/24 Ruth Riddle, DPM, Podiatry/Foot and Ankle Surgery [address] [place], [place] 778577 Assigned Musculoskeletal Provider 10/22/23 Jignesh Mathias MD [address] [place] [address] [phone] Gastroenterology 09/25/24 Adonay Haq MD [address] [place] [address] 299145 Assigned PCP 10/01/24 12/28/24 Omar Carmona MD [address] [place] [address] [phone] Assigned PCP 12/29/24 Jason Alvares MD [address] [place] [address] Assigned Neuroscience Provider 12/29/24 Jignesh Mathias MD [address] [place] [address] [phone] Assigned Surgical Provider 12/29/24 Ayad Lopez, PhD LP [address] [place] [address] 94[address] Assigned Behavioral Health Provider 02/28/25 Gavi Nieto PA-C 500 [place] [address] Physician Clinical Supervisor Dermatology 03/19/25 documented as of this encounter
--- OUTSIDE RECORDS SUMMARY | 2025-06-10 11:34 | XMS_ITS | Encounter Summary ---
Author Organization [facility] Address [address] [place] [address] Care Team Providers Care Aluminum Siding Mechanic Name Role Phone Rio Jaquez MD Primary Care Provider + [phone] Barry Kilpatrick MD Unavailable Michelle Henderson RN Unavailable +[phone] Rio Jaquez MD Unavailable +[phone] Jemima Jaramillo MD Unavailable Unavai Kelley Bautista RN Unavailable +[phone] Sydnee Saleem MD Unavailable +[phone] Karlene Moya MD Unavailable +[phone] Wilbert Quintero OD Unavailable +[phone] Rod Gauthier DPM Unavailable +[phone] Nallely Hogue RN Unavailable Unavailable Jan Mahmood MD Unavailable +[phone] Brandt Quintana MD Unavailable +[phone] Jan Mahmood MD Unavailable +[phone] Rio Jaquez MD Unavailable +[phone] Dom Eason MD Unavailable +[phone] Jayla Plaza RN Unavailable +[phone] Sydnee [...] Unavailable +[phone] Dom Eason MD Unavailable +[phone] Wagner Oliver MD Unavailable +[phone] Laura Epperson NP Unavailable +[phone] Thom Taveras MD Unavailable +[phone] Joesph Crowe MD Unavailable + [phone] Joesph Crowe MD Unavailable + [phone] Adonay Haq MD Unavailable +[phone] Denilson Srinivasan MD Unavailable + [phone] Jason Alvares MD Unavailable Ruth Riddle DPM, Podiatry /Foot and Ankle Surgery Unavailable Omar Carmona MD Primary Care Provider +1- Jignesh Mathias MD Unavailable Adonay Haq MD Unavailable +1- Omar Carmona MD Unavailable +[phone] Jason Alvares MD Unavailable Jignesh Mathias MD Unavailable Ayad Lopez PhD LP Unavailable +[phone] Gavi Nieto PA-C Unavailable +[phone] Encounter Details Date Type Department Care Team (Late st Contact Info) Description 03/17/2022 [facility] Medical Advice [facility] [place] [address] [place] [address] Ruth Riddle, DPVik, Podiatry/Foot and Ankle Surgery [address] [place], [place] [phone] Social History Tobacco Use Types Packs/Day Years [...] 1 02/16/2022 [facility] - Occupational Stress Questionnaire Answer [...] Sex Assigned at Female 09/12/2020 12:05 PM SEISMOGRAPH RECORDER Legal Sex Female 3:26 AM SEISMOGRAPH RECORDER Gender Identity Female 09/12/2020 12:05 PM SEISMOGRAPH RECORDER Sexual Orientation Straight 12/19/2021 10 :44 [...] 10:50 AM CDT Responded to patient via [employer]. Merly Weems MBA, ATC * Telephone Encounter [...] of routine nail care options. Patient sent [employer] [employer] message with concerns about a callus. Please advise if ok to see in clinic or if there are other recommendations. Merly Weems MBA, ATC documented in this encounter Plan of Treatment Upcoming Encounters Date Type Department Care Team (Late st Contact Info) Description 06/13/2025 6:00 PM SEISMOGRAPH RECORDER Ancillary Procedure [facility] Imaging Center [facility] Clinic [address] [phone] Omar Carmona MD [address] [place] [address] 614025 06/14/2025 4:00 PM SEISMOGRAPH RECORDER Office Visit [facility] Primary Care [address] [phone] Omar Carmona MD [address] [place] [address] [phone] 06/15/2025 12:45 PM SEISMOGRAPH RECORDER Therapy Visit [facility] Rehabilitation Services [address] [phone] Jason Alvares MD [address] [place] [address] [phone] Chaya Castillo, [facility] 150 [place], [place] 115517 06/19/2025 10:30 AM SEISMOGRAPH RECORDER Virtual Visit [facility] Care [address] [phone] Omar Carmona MD [address] [place] [address] Gerson Santos, [facility] 06/26/2025 11:00 AM SEISMOGRAPH RECORDER Therapy Visit [facility] 150 [place] [phone] Jason Alvares MD [address] [place] [address] [phone] Chaya Castillo, OTR [facility] 150 [place] [address] 07/09/2025 12:45 PM SEISMOGRAPH RECORDER Therapy Visit [address] [phone] Jason Alvares MD [address] [place] [address] 125935 Chaya Castillo, OTR [address] 306647 07/18/2025 3:00 PM SEISMOGRAPH RECORDER Office Visit [facility] Heart [address] [phone] Adonay Chapman APRN [facility] 500 [place], [place] 623235 11/05/2025 12:30 PM CDT Lab [facility] Lab [address] 1st [place] [phone] 11/05/2025 1:45 PM CDT Office Visit [facility] Dermatology Clinic [address]rd [place] [phone] Gavi Nieto PA-C Dermatology [address] [place] [address] [phone] 11/20/2025 10:30 AM CDT Virtual Visit [address] [address] Marquise Hanley MD 909 [place] [address] documented as of this encounter Goals Goal [...] documented as of this encounter Care Teams Aluminum Siding Mechanic Relationship Specialty Start Date End Date Rio Jaquez MD [address] [place] [address] 4 [place] [address] PCP - General Family Practice 12/02/10 07/13/24 Omar Carmona MD [address] [place] [address] 89503 PCP - General Family Medicine 07/14/24 Barry Kilpatrick MD [address] [place] [address] [id number] [place] [address] Neurology 07/19/14 Michelle Henderson I, RN Nurse Coordinator Neurology 07/19/14 Rio Jaquez MD 9 [facility] [address] 4 [place], [place] 818475 Family Practice 10/15/14 Jemima Jaramillo MD landscape laborer 11/20/14 Kelley Chin, TANIA [address] [phone] Nurse Coordinator Cardiology 11/04/15 Sydnee Saleem MD [address] [place] [address] 508 [place], [place] 702235 Cardiology 11/04/15 Karlene Moya MD [address] [place] [address] 124655 Ophthalmology 06/24/17 Wilbert Quintero, OD [address] [place] [address] 009575 Optometry 06/24/17 Rod Gauthier DPM [address] [place] [address] [phone] Manager Harbor Primary Podiatric Medicine 06/21/18 Nallely Hogue, RN Registered Nurse 02/20/19 11/23/22 Jan Mahmood MD [address] [place] [address] Gastroenterology 11/05/20 Brandt Quintana MD [address] [place] [address] Resident 11/05/20 Jan Mahmood MD 516 [facility] P[address]A [place] [address] Assigned Gastroenterology Provider 12/01/20 Rio Jaquez MD 909 [facility] [address] 4 [place], [place] 534815 Assigned PCP 11/17/20 09/30/24 Dom Eason MD 717 [facility] 353 [place] [address] Internal Medicine 12/02/20 Jayla Plaza, RN Specialty Rigger Helper Hepatology 01/09/21 02/13/24 Sydnee Saleem MD 6550 [facility] [address] [place] [address] 6[address]11 Assigned Heart and Vascular Provider 02/02/21 07/24/22 Jaimie Vernon, RN Specialty Rigger Helper Cardiology 10/28/21 Ruth Riddle DPM, Podiatry/Foot and Ankle Surgery 15365 [facility] [place] [address] [place], [place] 373637 Assigned Musculoskeletal Provider 11/30/21 09/30/23 Jason Alvares MD 420 [facility] 295 [place], [place] 557705 Assigned Neuroscience Provider 01/03/22 05/15/22 Marquise Hanley MD 909 [place], [place] 905115 Endocrinology, Diabetes, and Metabolism 03/05/22 Vlad Ramey MD [address] [place] [address] 91622 Cardiovascular Disease 05/07/22 Joesph Crowe MD [address] [place] [address] 25136 Surgery 05/07/22 Luis Arrington MD [address] [place] [address] 617155 Assigned Neuroscience Provider 05/16/22 05/14/23 Michelle Padilla RN Specialty Rigger Helper Cardiology 07/03/22 Vlad Ramey MD [address] [place] [address] 18240 Assigned Heart and Vascular Provider 07/25/22 05/28/23 Marquise Hanley MD [address] [place] [address] [phone] Assigned Endocrinology Provider 08/15/22 Dom Eason MD [address] [place] [address] 44[address] Assigned Nephrology Provider 11/28/22 02/19/23 Wagner Oliver MD [address] [place] 0[address] Critical Care 12/15/22 Laura Epperson, HOT TAMALE MAN [address] [place] [address] 1932 [place] [address] Assigned Nephrology Provider 02/20/23 08/30/24 Thom Taveras MD [address] [place], [place] 8502105 [place] [address] Assigned Cancer Care Provider 02/06/23 08/20/23 Joesph Crowe MD [address] [place] [address]807 MD Surgery 03/17/23 Joesph Crowe MD [address] [place] [address] 15391 Assigned Surgical Provider 04/03/23 09/30/24 Adonay Haq MD [address] [place] [address] 0[address]77 Internal Medicine 06/14/23OctoberDenilson MD 6405 [facility] [address] [place] [address] Assigned Heart and Vascular Provider 05/29/23 11/28/24 Jason Alvares MD [address] [place] [address] 295 [place] [address] Assigned Neuroscience Provider 05/15/23 11/28/24 Ruth Riddle DPM, Podiatry/Foot and Ankle Surgery [address] [place] [address] Assigned Musculoskeletal Provider 10/22/23 Jignesh Mathias MD [address] [place] [address] Gastroenterology 09/25/24 Adonay Haq MD [address] [place] [address] 626385 Assigned PCP 10/01/24 12/28/24 Omar Carmona MD [address] [place] [address] [phone] Assigned PCP 12/29/24 Jason Alvares MD [address] [place] [address] 342425 Assigned Neuroscience Provider 12/29/24 Jignesh Mathias MD [address] [place] [address] [phone] Assigned Surgical Provider 12/29/24 Ayad Lopez, PhD LP [address] [place] [address] 769725 Assigned Behavioral Health Provider 02/28/25 Gavi Nieto PA-C [address] [place] [address] [phone] Physician Ballet Company Member Dermatology 03/19/25 documented as of this encounter
--- OUTSIDE RECORDS SUMMARY | 2025-06-10 11:34 | XMS_ITS | Encounter Summary ---
Author Organization [place] Address [address] [place] [address] Care Team Providers Care Road Driver Name Role Phone Rio Jaquez MD Primary Care Provider + [phone] Barry Kilpatrick MD Unavailable Michelle Henderson RN Unavailable +[phone] Rio Jaquez MD Unavailable +[phone] Jemima Jaramillo MD Unavailable Unavai Kelley Bautista RN Unavailable +[phone] Sydnee Saleem MD Unavailable +[phone] Karlene Moya MD Unavailable +[phone] Wilbert Quintero OD Unavailable +[phone] Rod Gauthier DPM Unavailable +[phone] Nallely Hogue RN Unavailable Unavailable Jan Mahmood MD Unavailable +[phone] Brandt Quintana MD Unavailable +[phone] Jan Mahmood MD Unavailable +[phone] Rio Jaquez MD Unavailable +[phone] Dom Eason MD Unavailable +[phone] Jayla Plaza RN Unavailable +[phone] Sydnee [...] Unavailable +[phone] Dom Eason MD Unavailable +[phone] Wagner Oliver MD Unavailable +[phone] Laura Epperson NP Unavailable +[phone] Thom Taveras MD Unavailable +[phone] Joesph Crowe MD Unavailable + [phone] Joesph Crowe MD Unavailable + [phone] Adonay Haq MD Unavailable +[phone] Denilson Srinivasan MD Unavailable + [phone] Jason Alvares MD Unavailable Ruth Riddle DPM, Podiatry /Foot and Ankle Surgery Unavailable Omar Carmona MD Primary Care Provider +1- Jignesh Mathias MD Unavailable Adonay Haq MD Unavailable +1- Omar Carmona MD Unavailable +[phone] Jason Alvares MD Unavailable Jignesh Mathias MD Unavailable Ayad Lopez PhD Unavailable +[phone] Gavi Nieto-C Unavailable +[phone] Reason for Visit * Reason Onset Date Comments MyChart Communication 03/17/2022 Encounter Details Date Type Department Care Team (Latest Contact Info) Description 03/17/2022 MyC Medical Advice [facility] [address] 4th [place] [address] Rio Jaquez MD [address] [place] [address] 4 [place] [address] MyChart Communication Social History Tobacco [...] Answer Date Recorded PHQ-2 Score 1 02/16/2022 [facility] of Occupat ional Health [...] Sex Assigned at Female 09/12/2020 12:05 PM INDOOR LANDSCAPE ARCHITECT Legal Sex Female 3:26 AM INDOOR LANDSCAPE ARCHITECT Gender Identity Female 09/12/2020 12:05 PM INDOOR LANDSCAPE ARCHITECT Sexual Orientation Straight 12/19/2021 10 :44 [...] st Contact Info) Description 06/13/2025 6:00 PM INDOOR LANDSCAPE ARCHITECT Ancillary Procedure [facility] Imaging Center CT Clinic [address] [place] [phone] Omar Carmona MD [address] [place] [address] 06/14/2025 4:00 PM INDOOR LANDSCAPE ARCHITECT Office Visit [facility] [address] [place] [phone] Omar Carmona MD [address] [place] [address] 06/15/2025 12:45 PM INDOOR LANDSCAPE ARCHITECT Therapy Visit [facility] Rehabilitation Services [address] [phone] Jason Alvares MD [address] [place] [address] 041865 Chaya Castillo OTR [facility] [address] [place] [address] 06/19/2025 10:30 AM INDOOR LANDSCAPE ARCHITECT Virtual Visit [facility] [address] [place] [address] 4th [place] [address] Omar Carmona MD [address] [place] [address] Gerson Santos, [facility] 06/26/2025 11:00 AM INDOOR LANDSCAPE ARCHITECT Therapy Visit [facility] 150 [place] [phone] Jason Alvares MD [address] [place] [address] 732765 [facility] [address] [place], [place] 778477 07/09/2025 12:45 PM INDOOR LANDSCAPE ARCHITECT Therapy Visit [facility] 150 [place] [phone] Jason Alvares MD [address] [place] [address] Chaya Castillo OTR [facility] [address] [place], [place] 196077 07/18/2025 3:00 PM INDOOR LANDSCAPE ARCHITECT Office Visit [facility] Heart Clinic [address] [address] Adonay Chapman APRN [address] [address] 11/05/2025 12:30 PM CDT Lab [facility] Lab [address] [place] [phone] 11/05/2025 1:45 PM CDT Office Visit [facility] Dermatology Clinic [address] [place] [phone] Gavi Nieto PANavinC Dermatology [address] [place] [address] 11/20/2025 10:30 AM CDT Virtual Visit [address] [phone] Marquise Hanley MD [address] [place] [address] documented as of this encounter Goals Goal [...] as of this encounter Care Teams Road Driver Relationship Specialty Start Date End Date Rio Jaquez MD [address] [place] [address] 26737 PCP - General Family Practice 12/02/10 07/13/24 Omar Carmona MD [address] [place] [address] 007085 PCP - General Family Medicine 07/14/24 Barry Kilpatrick MD [address] [place] [address] [id number] [place], [place] 950495 Neurology 07/19/14 Michelle Henderson I, RN Nurse Coordinator Neurology 07/19/14 Rio Jaquez MD [address] [place] [address] 4 [place], [place] 719695 Family Practice 10/15/14 Jemima Jaramillo MD furniture salesperson 11/20/14 Kelley Chin, TANIA [address] 822985 Nurse Coordinator Cardiology 11/04/15 Sydnee Saleem MD [address] [place] [address] 508 [place], [place] 568315 Cardiology 11/04/15 Karlene Moya MD [address] [place] [address] Ophthalmology 06/24/17 Wilbert Quintero, OD [address] [place] [address] Optometry 06/24/17 Rod Gauthier DPM [address] [place] [address] Custodial Services Manager Primary Podiatric Medicine 06/21/18 Nallely Hogue, RN Registered Nurse 02/20/19 11/23/22 Jan Mahmood MD [address] [place] [address] 2[address] [place] [address] Gastroenterology 11/05/20 Brandt Quintana MD [address] [place] [address] Resident 11/05/20 Jan Mahmood MD [address] [place] [address] 2[address] [place] [address] Assigned Gastroenterology Provider 12/01/20 Rio Jaquez MD 9 [facility] 4 [place] [address] Assigned PCP 11/17/20 09/30/24 Dom Eason MD [address] [place] [address] 353 [place] [address] Internal Medicine 12/02/20 Jayla Plaza, RN Specialty Boat Engine Mechanic Hepatology 01/09/21 02/13/24 Sydnee Saleem MD 6569 [facility] [address] [place] [address] Assigned Heart and Vascular Provider 02/02/21 07/24/22 Jaimie Vernon, TANIA Specialty Boat Engine Mechanic Cardiology 10/28/21 Ruth Riddle DPM, Podiatry/Foot and Ankle Surgery [address] [facility] 300 [place] [address] Assigned Musculoskeletal Provider 11/30/21 09/30/23 Jason Alvares MD [address] [place] [address] Assigned Neuroscience Provider 01/03/22 05/15/22 Marquise Hanley MD [address] [place] [address] Endocrinology, Diabetes, and Metabolism 03/05/22 Vlad Ramey MD [address] [place] [address] 76876 Cardiovascular Disease 05/07/22 Joesph Crowe MD [address] [place] [address] 20769 Surgery 05/07/22 Luis Arringotn MD [address] [place] [address] 68[address] Assigned Neuroscience Provider 05/16/22 05/14/23 Michelle Padilla RN Specialty Boat Engine Mechanic Cardiology 07/03/22 Vlad Ramey MD [address] [place] [address] 27758 Assigned Heart and Vascular Provider 07/25/22 05/28/23 Marquise [place] MD [address] [place] [address] 90[address] Assigned Endocrinology Provider 08/15/22 Dom Eason MD [address] [place] [address] [place] [address] Assigned Nephrology Provider 11/28/22 02/19/23 Wagner Oliver MD [address] [place] [address] Critical Care 12/15/22 Laura Epperson, LULU 717 [facility] [address] [place] [address] Assigned Nephrology Provider 02/20/23 08/30/24 Thom Taveras MD [address] [facility] [address] [place] [address] Assigned Cancer Care Provider 02/06/23 08/20/23 Joesph Crowe MD 909 [place] [address] Surgery 03/17/23 Joesph Crowe MD 909 [place] [address] Assigned Surgical Provider 04/03/23 09/30/24 Adonay Haq MD 9 [place] [address] Internal Medicine 06/14/23OctoberDenilson MD 6405 [facility] [address] [place] [address] Assigned Heart and Vascular Provider 05/29/23 11/28/24 Jason Alvares MD 420 [facility] 295 [place], [place] 551165 Assigned Neuroscience Provider 05/15/23 11/28/24 Ruth Riddle DPM, Podiatry/Foot and Ankle Surgery [address] [place] [address] Assigned Musculoskeletal Provider 10/22/23 Jignesh Mathias MD [address] [place] [address] 065135 Gastroenterology 09/25/24 Adonay Haq MD [address] [place] [address] 328865 Assigned PCP 10/01/24 12/28/24 Omar Carmona MD [address] [place] [address] 841435 Assigned PCP 12/29/24 Jason Alvares MD [address] [place] [address] 295 [place], [place] 542195 Assigned Neuroscience Provider 12/29/24 Jignesh Mathias MD [address] [place] [address] 99943 Assigned Surgical Provider 12/29/24 Ayad Lopez, PhD LP [address] [place] [address] 370955 Assigned Behavioral Health Provider 02/28/25 Gavi Nieto PA-C [address] [place] [address] Physician Study Assistant Dermatology 03/19/25 documented as of this encounter
--- OUTSIDE RECORDS SUMMARY | 2025-06-10 11:34 | XMS_ITS | Encounter Summary ---
Author Organization [place] Address [address] [place] [address] Care Team Providers Care Student Affairs Vice President Name Role Phone Rio Jaquez MD Primary Care Provider + [phone] Barry Kilpatrick MD Unavailable Michelle Henderson RN Unavailable +[phone] Rio Jaquez MD Unavailable +[phone] Jemima Jaramillo MD Unavailable Unavai Kelley Bautista RN Unavailable +[phone] Sydnee Saleem MD Unavailable +[phone] Karlene Moya MD Unavailable +[phone] Wilbert Quintero OD Unavailable +[phone] Rod GauthierM Unavailable +[phone] Nallely Hogue RN Unavailable Unavailable Larisa Vargas RN Unavailable Unavailable Jan Mahmood MD Unavailable +[phone] Brandt Quintana MD Unavailable +[phone] Jan Mahmood MD Unavailable +[phone] Rio Jaquez MD Unavailable +[phone] Dom Eason MD Unavailable +[phone] Jayla Plaza RN Unavailable +[phone] Sydnee [...] 000 Marquise aHnley MD Unavailable +[phone] Dom Eason MD Unavailable +[phone] Wagner Oliver MD Unavailable +[phone] Laura Epperson NP Unavailable +[phone] Thom Taveras MD Unavailable +[phone] Joesph Crowe MD Unavailable +[phone] Joesph Crowe MD Unavailable + [phone] Adonay Haq MD Unavailable +[phone] Denilson Srinivasan MD Unavailable + [phone] Jason Alvares MD Unavailable Ruth Riddle DPM, Podiatry /Foot and Ankle Surgery Unavailable Omar Carmona MD Primary Care Provider +[phone] Jignesh Mathias MD Unavailable Adonay Haq MD Unavailable Omar Carmona MD Unavailable +[phone] Jason Alvares MD Unavailable Jignesh Mathias MD Unavailable Ayad Lopez PhD LP Unavailable +[phone] Gavi Nieto PA-C Unavailable +[phone] Encounter Details Date Type Department Care Team (Late st Contact Info) Description 02/04/2022 [facility] Medical Advice [facility] Primary Care Clinic [address] 4th [place] [address] Rio Jaquez MD [address] [place] [address] 4 [place] [address] Social History Tobacco Use Types [...] Date Recorded PHQ-2 Score 2 08/27/2021 [facility] of Occupat ional [facility] - Occupational Stress Questionnaire Answer Date [...] Assigned at Female 09/12/2020 12:05 PM DOOR PANELER Legal Sex Female 3:26 AM DOOR PANELER Gender Identity Female 09/12/2020 12:05 PM DOOR PANELER Sexual Orientation Straight 12/19/2021 10 :44 AM [...] st Contact Info) Description 06/13/2025 6:00 PM DOOR PANELER Ancillary Procedure [facility] Imaging Center CT Clinic [address] [phone] Omar Carmona MD [address] [place] [address] 06/14/2025 4:00 PM DOOR PANELER Office Visit [facility] Primary Care Clinic [address] 4th [place] [phone] Omar Carmona MD [address] [place] [address] 06/15/2025 12:45 PM DOOR PANELER Therapy Visit [facility] Rehabilitation Services [address] [phone] Jason Alvares MD [address] [place] [address] 461825 Chaya Castillo OTR [facility] 150 [facility] [address] 06/19/2025 10:30 AM DOOR PANELER Virtual Visit [facility] Primary [facility] Clinic [address] [place] [address] 4th [place] [phone] Omar Carmona MD [address] [place] [address] 775995 Gerson Santos RPH 06/26/2025 11:00 AM DOOR PANELER Therapy Visit [facility] 150 [place] [phone] Jason Alvares MD [address] [place] [address] Chaya Castillo [facility]TR [facility] 150 [place] [address] 07/09/2025 12:45 PM DOOR PANELER Therapy Visit [facility] 150 [place] [phone] Jason Alvares MD [address] [place] [address] Chaya Castillo OTR [facility] 150 [place] [address] 07/18/2025 3:00 PM DOOR PANELER Office Visit [facility] Heart Clinic [address] [phone] Adonay Chapman APRN LINE REPAIRER [address] [place] [address] 11/05/2025 12:30 PM CDT Lab [facility] Lab [address] [place] [phone] 11/05/2025 1:45 PM CDT Office Visit [facility] Dermatology Clinic [address]rd [place] [phone] Gavi Nieto PA-C Dermatology [address] [place] [address] [id number] 11/20/2025 10:30 AM CDT Virtual Visit [address] [phone] Marquise Hanley MD [address] [place] [address] documented as of this encounter Goals Goal [...] Total Score: 5 08/27/19 22 9:25 AM DOOR PANELER documented as of this encounter Care Teams Student Affairs Vice President Relationship Specialty Start Date End Date Rio Jaquez MD [address] [place] [address] 4 [place] [address] PCP - General Family Practice 12/02/10 07/13/24 Omar Carmona MD 9 [place], [place] 801945 PCP - General Family Medicine 07/14/24 Barry Kilpatrick MD [address] [place] [address] FL8932GB [place], [place] 580045 Neurology 07/19/14 Michelle Henderson I, RN Nurse Coordinator Neurology 07/19/14 Rio Jaquez MD [address] [place] [address] 4 [place], [place] 259575 Family Practice 10/15/14 Jemima Jaramillo MD long winder tender 11/20/14 Kelley Chin, TANIA [facility] [address] [place] [address] 652615 Nurse Coordinator Cardiology 11/04/15 Sydnee Saleem MD [address] [place] [address] 508 [place], [place] 835615 Cardiology 11/04/15 Karleen Moya MD [address] [place] [address] 972415 Ophthalmology 06/24/17 Wilbert Quintero, OD [address] [place] [address] Optometry 06/24/17 Rod Gauthier DPM [address] [place] [address] 209185 Zipper Joiner Primary Podiatric Medicine 06/21/18 Nallely Hogue, RN Registered Nurse 02/20/19 11/23/22 Larisa Vargas, TANIA Specialty Nitric Acid Concentrator Operator Cardiology 04/18/19 03/06/22 Jan Mahmood MD 516 [facility] 2A [place] [address] Gastroenterology 11/05/20 Brandt Quintana MD 1414 [place] [address] Resident 11/05/20 Jan Mahmood MD 516 [facility] 2A [place] [address] Assigned Gastroenterology Provider 12/01/20 Rio Jaquez MD 909 [facility] 4 [place], [place] 752325 Assigned PCP 11/17/20 09/30/24 Dom Eason MD 717 [facility] 353 [place], [place] 925904 Internal Medicine 12/02/20 Jayla Plaza, RN Specialty Nitric Acid Concentrator Operator Hepatology 01/09/21 02/13/24 Sydnee Saleem MD [address] [place] [address] Assigned Heart and Vascular Provider 02/02/21 07/24/22 Cristian Barragan MD 2945 [place] [address] Assigned Infectious Disease Provider 02/21/21 03/06/22 Jaimie Vernon, RN Specialty Nitric Acid Concentrator Operator Cardiology 10/28/21 Ruth Riddle DPM, Podiatry/Foot and Ankle Surgery [address] [place] [address] Assigned Musculoskeletal Provider 11/30/21 09/30/23 Jason Alvares MD [address] [place] [address]83 Assigned Neuroscience Provider 01/03/22 05/15/22 Marquise Han[place] MD [address] [place] [address] Endocrinology, Diabetes, and Metabolism 03/05/22 Vlad Ramey MD [address] [place] [address] Cardiovascular Disease 05/07/22 Joesph Crowe MD [address] [place] [address]99 Surgery 05/07/22 Luis Arrington MD [address] [place] [address] 8[address] Assigned Neuroscience Provider 05/16/22 05/14/23 Michelle Padilla RN Specialty Nitric Acid Concentrator Operator Cardiology 07/03/22 Vlad Ramey MD [address] [place] [address] 6[address] Assigned Heart and Vascular Provider 07/25/22 05/28/23 Marquise [place] MD [address] [place] [address] Assigned Endocrinology Provider 08/15/22 Dom Eason MD 717 [facility] 353 [place] [address] Assigned Nephrology Provider 11/28/22 02/19/23 Wagner Oliver MD [address] [place] [address] Critical Care 12/15/22 Laura Epperson NP 7 [facility] 1932 [place] [address] Assigned Nephrology Provider 02/20/23 08/30/24 Thom Taveras MD [address] [place] [address], R105 [place] [address] Assigned Cancer Care Provider 02/06/23 08/20/23 Joesph Crowe MD [address] [place] [address] Surgery 03/17/23 Joesph Crowe MD [address] [place] [address] Assigned Surgical Provider 04/03/23 09/30/24 Adonay Haq MD [address] [place] [address] Internal Medicine 06/14/23OctoberDenilson MD [address] [place] [address] Assigned Heart and Vascular Provider 05/29/23 11/28/24 Jason Alvares MD [address] [place] [address] 15067 Assigned Neuroscience Provider 05/15/23 11/28/24 Ruth Riddle DPM, Podiatry/Foot and Ankle Surgery [address] [place] [address] Assigned Musculoskeletal Provider 10/22/23 Jignesh Mathias MD [address] [place] [address] Gastroenterology 09/25/24 Adonay Haq MD [address] [place] [address] 15[address] Assigned PCP 10/01/24 12/28/24 Omar Carmona MD [address] [place] [address] 85293 Assigned PCP 12/29/24 Jason Alvares MD [address] [place] [address] 722515 Assigned Neuroscience Provider 12/29/24 Jignesh Mathias MD [address] [place] [address] 30942 Assigned Surgical Provider 12/29/24 Ayad Lopez, PhD LP [address] [place] [address] Assigned Behavioral Health Provider 02/28/25 Gavi Nieto PA-C [address] [place] [address] [phone] Physician Die Fitter Dermatology 03/19/25 documented as of this encounter
--- OUTSIDE RECORDS SUMMARY | 2025-06-10 11:34 | XMS_ITS | Clinical Summary ---
Author Organization [facility] Facility Address [address] [place] [address] Care Team Providers Care Research And Development Researcher Name Role Phone Unavailable Primary Care Provider [...] Influenza Vaccine (#1) 2025 Insurance JASON MIGUEL [id number] Medicare [facility] [place] [facility]
--- OUTSIDE RECORDS SUMMARY | 2025-06-10 11:35 | XMS_ITS | Encounter Summary ---
Author Organization [facility] Address [address] [place] [address] 20769 Care Team Providers Care I&C Technician Name Role Phone Rio Jaquez MD Primary Care Provider + [phone] Barry Kilpatrick MD Unavailable Michelle Henderson RN Unavailable [phone] Rio Jaquez MD Unavailable +[phone] Jemima Jaramillo MD Unavailable Unavai Kelley Bautista RN Unavailable +[phone] Sydnee Saleem MD Unavailable +[phone] Karlene Moya MD Unavailable +[phone] Wilbert Quintero OD Unavailable +[phone] Rod Gauthier DPM Unavailable +[phone] Nallely Hogue RN Unavailable Unavailable Jan Mahmood MD Unavailable +[phone] Brandt Quintana MD Unavailable +[phone] Jan Mahmood MD Unavailable +[phone] Rio Jaquez MD Unavailable +[phone] Dom Eason MD Unavailable +[phone] Jayla Plaza RN Unavailable +[phone] Sydnee [...] Unavailable +[phone] Dom Eason MD Unavailable +[phone] Wagner Oliver MD Unavailable +[phone] ZeenatLaura rodriguez NP Unavailable +[phone] Thom Taveras MD Unavailable +[phone] Joesph Crowe MD Unavailable +[phone] Joesph Crowe MD Unavailable + [phone] Adonay Haq MD Unavailable +[phone] Denilson Srinivasan MD Unavailable + [phone] [facility] Un[facility] Ruth Riddle DPM, Podiatry /Foot and Ankle Surgery Unavailable Omar Carmona MD Primary Care Provider [phone] Jignesh Mathias MD Unavailable Adonay Haq MD Unavailable +1- Omar Carmona MD Unavailable Jason Alvares MD Unavailable Jignesh Mathias MD Unavailable Ayad Lopez PhD LP Unavailable +[phone] Gavi Nieto PA-C Unavailable +[phone] Encounter Details Date Type Department Care Team (Late st Contact Info) Description 05/24/2022 My[facility] Medical Advice Initial Department [address] [place] [address] Lizbeth Lopes Social History Tobacco Use Types [...] Answer Date Recorded PHQ-2 Score 1 05/07/2022 [facility] [place] of Occupat ional Health - Occupational Stress [...] Sex Assigned at Female 09/12/2020 12:05 PM AUTOMATIC TELLER MACHINE SERVICER Legal Sex Female 3:26 AM AUTOMATIC TELLER MACHINE SERVICER Gender Identity Female 09/12/2020 12:05 PM AUTOMATIC TELLER MACHINE SERVICER Sexual Orientation Straight 12/19/2021 10 [...] st Contact Info) Description 06/13/2025 6:00 PM AUTOMATIC TELLER MACHINE SERVICER Ancillary Procedure [facility] CT Clinic [address] [place] [phone] Omar Carmona MD [address] [place] [address] [phone] 06/14/2025 4:00 PM AUTOMATIC TELLER MACHINE SERVICER Office Visit [facility] [address] [place] [phone] Omar Carmona MD [address] [place] [address] [phone] 06/15/2025 12:45 PM AUTOMATIC TELLER MACHINE SERVICER Therapy Visit [facility] Rehabilitation Services [address] [phone] Jason Alvares MD [address] [place] [address] 295 [place], [place] 114385 Chaya Castillo OTR [facility] 150 [place] [address] 06/19/2025 10:30 AM AUTOMATIC TELLER MACHINE SERVICER Virtual Visit [facility] [address] [place] [address] 4[address] [place] [phone] Omar Carmona MD [address] [place] [address] 789285 Gerson Santos, [facility] 06/26/2025 11:00 AM AUTOMATIC TELLER MACHINE SERVICER Therapy Visit [facility] [address] [place] [phone] Jason Alvares MD [address] [place] [address] [phone] Chaya Castillo, OTR [address] [address] 07/09/2025 12:45 PM AUTOMATIC TELLER MACHINE SERVICER Therapy Visit [facility] [address] [place] [phone] Jason Alvares MD [address] [place] [address] 630855 Chaya Castillo, OTR [address] [address] 07/18/2025 3:00 PM AUTOMATIC TELLER MACHINE SERVICER Office Visit [facility] Heart Clinic [address] [phone] Adonay Chapman APRN [address] [phone] 11/05/2025 12:30 PM CDT Lab [facility] Lab [address] [place] [phone] 11/05/2025 1:45 PM CDT Office Visit [facility] Dermatology Clinic [address]rd [place] [phone] Gavi Nieto PA-C Dermatology [address] [place] [address] 11/20/2025 10:30 AM CDT Virtual Visit [address] [place] [address] Marquise Hanley MD [address] [place] [address] [phone] documented as of this encounter Goals Goal [...] documented as of this encounter Care Teams I&C Technician Relationship Specialty Start Date End Date Rio Jaquez MD [address] [place] [address] [place] [address] [place] [address] PCP - General Family Practice 12/02/10 07/13/24 Omar Carmona MD [address] [place] [address] 723375 PCP - General Family Medicine 07/14/24 Barry Kilpatrick MD [address] [place] [address] [id number] [place] [address] Neurology 07/19/14 Michelle Henderson I, RN Nurse Coordinator Neurology 07/19/14 Rio Jaquez MD 9 [facility] 4 [place], [place] [phone] Family Practice 10/15/14 Jemima Jaramillo MD wardrobe assistant 11/20/14 Kelley Chin, TANIA [address] [phone] Nurse Coordinator Cardiology 11/04/15 Sydnee Saleem MD [address] [facility] [address] [place], [place] 502365 Cardiology 11/04/15 Karlene Moya MD [address] [place] [address] 130855 Ophthalmology 06/24/17 Wilbert Quintero, OD [address] [place] [address] 398135 Optometry 06/24/17 Rod Gauthier DPM [address] [place] [address] [phone] Auto Dismantler Primary Podiatric Medicine 06/21/18 Nallely Hogue, RN Registered Nurse 02/20/19 11/23/22 Jan Mahmood MD [address] [place] [address] [address] [place], [place] [phone] Gastroenterology 11/05/20 Brandt Quintana MD 1414 [place] [address] Resident 11/05/20 Jan Mahmood MD [facility] [place] [address] Assigned Gastroenterology Provider 12/01/20 Rio Jaquez MD [address] [facility] 4 [place] [address] Assigned PCP 11/17/20 09/30/24 Dom Eason MD [address] [place] [address] 353 [place], [place] 748784 Internal Medicine 12/02/20 Jayla Plaza, TANIA Specialty Life Management Teacher Hepatology 01/09/21 02/13/24 Sydnee Saleem MD [address] [place] [address]30 Assigned Heart and Vascular Provider 02/02/21 07/24/22 Jaimie Vernon, RN Specialty Life Management Teacher Cardiology 10/28/21 Ruth Riddle, DPM, Podiatry/Foot and Ankle Surgery [address] [facility] 300 [place], [place] 441257 Assigned Musculoskeletal Provider 11/30/21 09/30/23 Marquise Hanley MD [address] [place] [address] 279675 Endocrinology, Diabetes, and Metabolism 03/05/22 Vlad Ramey MD [address] [place] [address] 79286 Cardiovascular Disease 05/07/22 Joesph Crowe MD [address] [place] [address] 62398 Surgery 05/07/22 Luis Arrington MD [address] [place] [address] 34880 Assigned Neuroscience Provider 05/16/22 05/14/23 Michelle Padilla RN Specialty Life Management Teacher Cardiology 07/03/22 Vlad Ramey MD [address] [place] [address] 70384 Assigned Heart and Vascular Provider 07/25/22 05/28/23 Marquise Hanley MD [address] [place] [address] 55874 Assigned Endocrinology Provider 08/15/22 Dom Eason MD 7 [facility] 353 [place] [address] Assigned Nephrology Provider 11/28/22 02/19/23 Wagner Oliver MD [address] [place] [address] Critical Care 12/15/22 Laura Epperson NP 717 [facility] [address] [place] [address] Assigned Nephrology Provider 02/20/23 08/30/24 Thom Taveras MD [address] [place], [place] 631[address]05 [place] [address] Assigned Cancer Care Provider 02/06/23 08/20/23 Joesph Crowe MD [address] [place] [address] 84855 MD Surgery 03/17/23 Joesph Crowe MD [address] [place] [address] 95002 Assigned Surgical Provider 04/03/23 09/30/24 Adonay Haq MD [address] [place] [address] Internal Medicine 06/14/23October, Denilson Jackson MD [address] [facility] Black [facility] [address] [place] [address] Assigned Heart and Vascular Provider 05/29/23 11/28/24 Jason Alvares MD [address] [place] [address] 295 [place] [address] Assigned Neuroscience Provider 05/15/23 11/28/24 Ruth Riddle DPM, Podiatry/Foot and Ankle Surgery [address] [place] [place] [address] Assigned Musculoskeletal Provider 10/22/23 Jignesh Mathias MD [address] [place] [address] Gastroenterology 09/25/24 Adonay Hqa MD [address] [place] [address] Assigned PCP 10/01/24 12/28/24 Omar Carmona MD [address] [place] [address] 800075 Assigned PCP 12/29/24 Jason Alvares MD [address] [place] [address] Assigned Neuroscience Provider 12/29/24 Jignesh Mathias MD [address] [place] [address] Assigned Surgical Provider 12/29/24 Ayad Lopez, PhD LP [address] [place] [address] Assigned Behavioral Health Provider 02/28/25 Gavi Nieto PA-C [address] [place] [address] 034605 Physician Platen Builder Up Dermatology 03/19/25 documented as of this encounter
--- OUTSIDE RECORDS SUMMARY | 2025-06-10 11:35 | XMS_ITS | Encounter Summary ---
Author Organization [place] Address [address] [place] [address] 94387 Care Team Providers Care Senior Net Developer Name Role Phone Rio Jaquez MD Primary Care Provider Barry Kilpatrick MD Unavailable Michelle Henderson I RN Unavailable [phone] Rio Jaquez MD Unavailable +[phone] Jemima Jaramillo MD Unavailable Unavai Kelley Bautista RN Unavailable +[phone] Sydnee Saleem MD Unavailable +[phone] Karlene Moya MD Unavailable +[phone] Wilbert Quintero OD Unavailable +[phone] Rod Gauthier DPM Unavailable +[phone] Jan Mahmood MD Unavailable +[phone] Brandt Quintana MD Unavailable Jan Mahmood MD Unavailable +[phone] Rio Jaquez MD Unavailable +[phone] Dom Eason MD Unavailable + [phone] [place], Jaimie RN Unavailable Unavailable Marquise Hanley MD Unavailable +[phone] Vlad Ramey MD Unavailable +[phone] Joesph Crowe MD Unavailable + [phone] Michelle Padilla RN Unavailable Unavaila ble Marquise Hanley MD Unavailable +[phone] Wagner Oliver MD Unavailable +[phone] Laura Epperson NP Unavailable +[phone] Joesph Crowe MD Unavailable +[phone] Joesph Crowe MD Unavailable + [phone] Adonay Haq MD Unavailable +[phone] Denilsno Srinivasan MD Unavailable + [phone] Jason Alvares MD Unavailable Ruth RiddleM, Podiatry /Foot and Ankle Surgery Unavailable Omar Carmona MD Primary Care Provider [phone] Jignesh Mathias MD Unavailable Adonay Haq MD Unavailable [phone] Omar Carmona MD Unavailable +[phone] Jason Alvares MD Unavailable Jignesh Mathias MD Unavailable Ayad Lopez PhD LP Unavailable [phone] Gavi Nieto PA-C Unavailable [phone] Encounter Details Date Type Department Care Team (Late st Contact Info) Description 04/03/2024 [facility] Gastroenterology Clinic [address] [place] [address] Jemima Mederos, RN Social History [...] Date Recorded PHQ-2 Score 2 02/28/2024 [facility] - Occupational Stress Questionnaire [...] Assigned at Female 09/12/2020 12:05 PM PRIMARY GRADE TEACHER Legal Sex Female 3:26 AM PRIMARY GRADE TEACHER Gender Identity Female 09/12/2020 12:05 PM PRIMARY GRADE TEACHER Sexual Orientation Straight 12/19/2021 10 :44 AM CDT Occupation Industry Job Start Date Job End Date on disability for FMS Not on file Not on file Not on file disabled Not on file Not on file Not on file documented as of this encounter Plan of Treatment Upcoming Encounters Date Type Department Care Team (Late st Contact Info) Description 06/13/2025 6:00 PM PRIMARY GRADE TEACHER Ancillary Procedure [facility] Clinic [address] [address] Omar Carmona MD [address] [place] [address] 06/14/2025 4:00 PM PRIMARY GRADE TEACHER Office Visit [facility] [address] [phone] Omar Carmona MD [address] [place] [address] 06/15/2025 12:45 PM PRIMARY GRADE TEACHER Therapy Visit [facility] 150 [place] [phone] Jason Alvares MD [address] [place] [address] 385325 Chaya Castillo OTR [facility] 150 [place] [address] 06/19/2025 10:30 AM PRIMARY GRADE TEACHER Virtual Visit [facility] [address] [phone] Omar Carmona MD [address] [place] [address] 334105 Gerson Santos [facility] 06/26/2025 11:00 AM PRIMARY GRADE TEACHER Therapy Visit [facility] [address] [place] [phone] Jason Alvares MD [address] [place] [address] 910245 Ch[facility]illo [facility] [address] [place] [address] 07/09/2025 12:45 PM PRIMARY GRADE TEACHER Therapy [facility] 150 [place] [phone] Jason Alvares MD [address] [place] [address], [place] [address] Chaya Castillo, LETA [address] [address] 07/18/2025 3:00 PM PRIMARY GRADE TEACHER Office Visit [facility] [address] [phone] Adonay Chapman APRN [facility] 500 [place] [address] 11/05/2025 12:30 PM CDT Lab [facility] [address] [place] [phone] 11/05/2025 1:45 PM CDT Office Visit [facility] Dermatology [address]rd [place] [phone] Gavi Nieto PA-C Dermatology [address] [place] [address] [phone] 11/20/2025 10:30 AM CDT Virtual Visit [address] [address] Marquise Hanley MD [address] [place] [address] [phone] documented as of this encounter Goals Goal [...] as of this encounter Care Teams Senior Net Developer Relationship Specialty Start Date End Date Rio Jaquez MD [address] [place] [address]862 PCP - General Family Practice 12/02/10 07/13/24 Omar Carmona MD [address] [place] [address] 59812 PCP - General Family Medicine 07/14/24 Barry Kilpatrick MD [address] [place] [address] [id number] [place], [place] 570395 Neurology 07/19/14 Michelle Henderson RN Nurse Coordinator Neurology 07/19/14 Rio Jaquez MD [address] [place] [address] 562475 Family Practice 10/15/14 Jemima Jaramillo MD physical science teacher 11/20/14 Kelley Chin, TANIA [address] 298045 Nurse Coordinator Cardiology 11/04/15 Sydnee Saleem MD 420 [facility] 508 [place], [place] 642295 Cardiology 11/04/15 Karlene Moya MD [address] [place] [address] 624165 Ophthalmology 06/24/17 Wilbert Quintero, OD 9 [place] [address] Optometry 06/24/17 Rod Gauthier DPM [address] [place] [address] 12799 Compliance Auditor Primary Podiatric Medicine 06/21/18 Jan Mahmood MD [address] [place] [address] Gastroenterology 11/05/20 Brandt Quintana MD [facility]4 [place] [address] Resident 11/05/20 Jan Mahmood MD [address] [place] [address] Assigned Gastroenterology Provider 12/01/20 Rio Jaquez MD [address] [place] [address] 23751 Assigned PCP 11/17/20 09/30/24 Dom Eason MD 7 [facility] 353 [place] [address] Internal Medicine 12/02/20 Jaimie Vernon, TANIA Specialty Acting Section Chief Cardiology 10/28/21 Marquise Hanley MD [address] [place] [address] Endocrinology, Diabetes, and Metabolism 03/05/22 Vlad Ramey MD [address] [place] [address] 23936 Cardiovascular Disease 05/07/22 Joesph Crowe MD [address] [place] [address] 75603 Surgery 05/07/22 Michelle Padilla, RN Specialty Acting Section Chief Cardiology 07/03/22 Marquise Hanley MD [address] [place] [address] 40916 Assigned Endocrinology Provider 08/15/22 Wagner Oliver MD [address] [place] [address] Critical Care 12/15/22 Laura Epperson NP [address] [place] [address] 1932 [place] [address] Assigned Nephrology Provider 02/20/23 08/30/24 Joesph Crowe MD [address] [place] [address] 16644 Surgery 03/17/23 Joesph Crowe MD [address] [place] [address] 92279 Assigned Surgical Provider 04/03/23 09/30/24 Adonay Haq MD [address] [place] [address]90 Internal Medicine 06/14/23October, Dneilson Jackson MD [address] [place] [address] Assigned Heart and Vascular Provider 05/29/23 11/28/24 Jason Alvares MD 420 [facility] 295 [place] [address] Assigned Neuroscience Provider 05/15/23 11/28/24 Ruth Riddle, DPM, Podiatry/Foot and Ankle Surgery [address] [place] [address] Assigned Musculoskeletal Provider 10/22/23 Jignesh Mathias MD [address] [place] [address] Gastroenterology 09/25/24 Adonay Haq MD [address] [place] [address] 630475 Assigned PCP 10/01/24 12/28/24 Omar Carmona MD [address] [place] [address] 252815 Assigned PCP 12/29/24 Jason Alvares MD [address] [place] [address] 295 [place] [address] Assigned Neuroscience Provider 12/29/24 Jignesh Mathias MD [address] [place] [address] 24207 Assigned Surgical Provider 12/29/24 Ayad Lopez, PhD LP [address] [place] [address] 585075 Assigned Behavioral Health Provider 02/28/25 Gavi Nieto PA-C [address] [place] [address] [phone] Physician Pipe Or Steam Fitter Furnace Installer Dermatology 03/19/25 documented as of this encounter
--- OUTSIDE RECORDS SUMMARY | 2025-06-10 11:35 | XMS_ITS | Encounter Summary ---
Author Organization [place] Address [address] [place] [address] 74380 Care Team Providers Care Case Maker Name Role Phone Rio Jaquez MD Primary Care Provider + [phone] Barry Kilpatrick MD Unavailable Michelle Henderson RN Unavailable +[phone] Rio Jaquez MD Unavailable +[phone] Jemima Jaramillo MD Unavailable Unavai Kelley Bautista RN Unavailable +[phone] Sydnee Saleem MD Unavailable +[phone] Karlene Moya MD Unavailable +[phone] Wilbert Quintero OD Unavailable +[phone] Rod Gauthier DPM Unavailable +[phone] Nallely Hogue RN Unavailable Unavailable Jan Mahmood MD Unavailable +[phone] Brandt Quintana MD Unavailable +[phone] Jan Mahmood MD Unavailable +[phone] Rio Jaquez MD Unavailable +[phone] Dom Eason MD Unavailable +[phone] Jayla Plaza RN Unavailable +[phone] Sydnee [...] Unavailable +[phone] Dom Eason MD Unavailable +[phone] Wagner Oliver MD Unavailable +[phone] Laura Epperson NP Unavailable +[phone] Thom Taveras MD Unavailable +[phone] Joesph Crowe MD Unavailable + [phone] Joesph Crowe MD Unavailable + [phone] Adonay Haq MD Unavailable +[phone] Denilson Srinivasan MD Unavailable + [phone] Jason Alvares MD Unavailable Ruth Riddle DPM, Podiatry /Foot and Ankle Surgery Unavailable Omar Carmona MD Primary Care Provider +1- Jignesh Mathias MD Unavailable Adonay Haq MD Unavailable +1- Omar Carmona MD Unavailable +[phone] Jason Alvares MD Unavailable Jignesh Mathias MD Unavailable Ayad Lopez PhD LP Unavailable +[phone] Gavi Nieto PA-C Unavailable +[phone] Encounter Details Date Type Department Care Team (Late st Contact Info) Description 04/29/2022 MyC Medical Advice [facility] Wound [facility] [place] [address] [place] [address] Ruth Riddle, DPVik, Podiatry/Foot and Ankle Surgery [address] [place], [place] [address] Social History Tobacco Use Types Packs/Day Years [...] Answer Date Recorded PHQ-2 Score 2 04/21/2022 [facility] of Occupat ional [facility] - Occupational Stress Questionnaire [...] Sex Assigned at Female 09/12/2020 12:05 PM LOAD DISPATCHER Legal Sex Female 3:26 AM LOAD DISPATCHER Gender Identity Female 09/12/2020 12:05 PM LOAD DISPATCHER Sexual Orientation Straight 12/19/2021 10 :44 AM [...] st Contact Info) Description 06/13/2025 6:00 PM LOAD DISPATCHER Ancillary Procedure [facility] Imaging Center [facility] Clinic [address] [phone] Omar Carmona MD [address] [place] [address] 705165 06/14/2025 4:00 PM LOAD DISPATCHER Office Visit [facility] Primary Care Clinic [address] [place] [phone] Omar Carmona MD [address] [place] [address] 321205 06/15/2025 12:45 PM LOAD DISPATCHER Therapy Visit [facility] Rehabilitation Services [address] [phone] Jason Alvares MD [address] [place] [address] 36651 Chaya Castillo OTR [facility] 150 [place] [address] 06/19/2025 10:30 AM LOAD DISPATCHER Virtual Visit [facility] [address] [place] [address] 4th [place] [phone] Omar Carmona MD [address] [place] [address] 396145 Gerson Santos [facility] 06/26/2025 11:00 AM LOAD DISPATCHER Therapy Visit [address] [phone] Jason Alvares MD [address] [place] [address] 62686 Chaya Castillo OTR [facility] 150 [place] [address] 07/09/2025 12:45 PM LOAD DISPATCHER Therapy Visit [facility] 150 [place] [phone] Jason Alvares MD [address] [place] [place] [address] 65346 Chaya Castillo OTR [facility] 150 [place] [address] 07/18/2025 3:00 PM LOAD DISPATCHER Office Visit [facility] Heart Clinic [address] [phone] Adonay Chapman APRN [address] 929085 11/05/2025 12:30 PM CDT Lab [facility] Lab [address] 1st [place] [phone] 11/05/2025 1:45 PM CDT Office Visit [facility] Dermatology Clinic [address] 3rd [place] [phone] Gavi Nieto PA-C Dermatology [address] [place] [address] 11683 11/20/2025 10:30 AM CDT Virtual Visit [address] [phone] Marquise Hanley MD [address] [place] [address] 488425 documented as of this encounter Goals Goal [...] documented as of this encounter Care Teams Case Maker Relationship Specialty Start Date End Date Rio Jaquez MD [address] [place] [address] 59184 PCP - General Family Practice 12/02/10 07/13/24 Omar Carmona MD [address] [place] [address] 31235 PCP - General Family Medicine 07/14/24 Barry Kilpatrick MD [address] [place] [address] [id number] [place] [address] Neurology 07/19/14 Michelle Henderson I, RN Nurse Coordinator Neurology 07/19/14 Rio Jaquez MD [address] [place] [address] FL 4 [place], [place] 622115 Family Practice 10/15/14 Jemima Jaramillo MD irrigation teacher 11/20/14 Kelley Chin RN [address] 323135 Nurse Coordinator Cardiology 11/04/15 Sydnee Saleem MD [address] [place] [address] 508 [place], [place] 821765 Cardiology 11/04/15 Karlene Moya MD [address] [place] [address] 091225 Ophthalmology 06/24/17 Wilbert Quintero, OD [address] [place] [address] 020035 Optometry 06/24/17 Rod Gauthier DPM [address] [place] [address] 755045 Macaroni Maker Primary Podiatric Medicine 06/21/18 Nallely Hogue, RN Registered Nurse 02/20/19 11/23/22 Jan Mahmood MD 516 [facility] 2A [place] [address] Gastroenterology 11/05/20 Brandt Quintana MD [address] [place] [address] 68560 Resident 11/05/20 Jan Mahmood MD 6 [facility] 2A [place] [address] Assigned Gastroenterology Provider 12/01/20 Rio Jaquez MD [address] [place] [address] 4 [place] [address] Assigned PCP 11/17/20 09/30/24 Dom Eason MD [address] [place] [address] 85255 Internal Medicine 12/02/20 Jayla Plaza RN Specialty Stacker Tender Hepatology 01/09/21 02/13/24 Sydnee Saleem MD 6550 [facility] [address] [place] [address] [phone] Assigned Heart and Vascular Provider 02/02/21 07/24/22 Jaimie Vernon, TANIA Specialty Stacker Tender Cardiology 10/28/21 Ruth Riddle, DPM, Podiatry/Foot and Ankle Surgery 67214 [facility] 300 [place], [place] 020057 Assigned Musculoskeletal Provider 11/30/21 09/30/23 Jason Alvares MD [address] [place] [address] 03490 Assigned Neuroscience Provider 01/03/22 05/15/22 Marquise Hanley MD [address] [place] [address] 34551 Endocrinology, Diabetes, and Metabolism 03/05/22 Vlad Ramey MD [address] [place] [address] 73736 Cardiovascular Disease 05/07/22 Joesph Crowe MD [address] [place] [address] 87196 Surgery 05/07/22 Luis Arrington MD [address] [place] [address] 071375 Assigned Neuroscience Provider 05/16/22 05/14/23 Michelle Padilla RN Specialty Stacker Tender Cardiology 07/03/22 Vlad Ramey MD [address] [place] [address] 48109 Assigned Heart and Vascular Provider 07/25/22 05/28/23 Marquise Hanley MD [address] [place] [address] 11992 Assigned Endocrinology Provider 08/15/22 Dom Eason MD [address] [place] [address] 03244 Assigned Nephrology Provider 11/28/22 02/19/23 Wagner Oliver MD [address] [place] [address] Critical Care 12/15/22 Laura Epperson NP 717 [facility] 1932 [place] [address] Assigned Nephrology Provider 02/20/23 08/30/24 Thom Taveras MD [facility] [address] [place] [id number] [place] [address] Assigned Cancer Care Provider 02/06/23 08/20/23 Joesph Crowe MD [address] [place] [address] 08067 Surgery 03/17/23 Joesph Crowe MD [address] [place] [address] 06327 Assigned Surgical Provider 04/03/23 09/30/24 Adonay Haq MD [address] [place] [address] 76929 Internal Medicine 06/14/23OctoberDenilson MD [address] [facility] [address] [place] [address] Assigned Heart and Vascular Provider 05/29/23 11/28/24 Jason Alvares MD 420 [facility] 295 [place], [place] 582935 Assigned Neuroscience Provider 05/15/23 11/28/24 Ruth Riddle DPM, Podiatry/Foot and Ankle Surgery [address] [place] [address] Assigned Musculoskeletal Provider 10/22/23 Jignesh Mathias MD [address] [place] [address] 87208 Gastroenterology 09/25/24 Adonay Haq MD [address] [place] [address] 930855 Assigned PCP 10/01/24 12/28/24 Omar Carmona MD [address] [place] [address] 754295 Assigned PCP 12/29/24 Jason Alvares MD [address] [place] [address] 295 [place], [place] 018955 Assigned Neuroscience Provider 12/29/24 Jignesh Mathias MD [address] [place] [address] 99019 Assigned Surgical Provider 12/29/24 Ayad Lopez, PhD LP [address] [place] [address] 408235 Assigned Behavioral Health Provider 02/28/25 Gavi Nieto, PA-C [address] [place] [address] 983585 Physician Sdet Dermatology 03/19/25 documented as of this encounter
--- OUTSIDE RECORDS SUMMARY | 2025-06-10 11:35 | XMS_ITS | Encounter Summary ---
Author Organization [place] Address [address] [place] [address] 99883 Care Team Providers Care Retail Stocker Name Role Phone Rio Jaquez MD Primary Care Provider + [phone] Barry Kilpatrick MD Unavailable Michelle Henderson RN Unavailable +[phone] Rio Jaquez MD Unavailable +[phone] Jemima Jaramillo MD Unavailable Unavai Kelley Bautista RN Unavailable +[phone] Sydnee Saleem MD Unavailable +[phone] Karlene Moya MD Unavailable +[phone] Wilbert Quintero OD Unavailable +[phone] Rod Gauthier DPM Unavailable +[phone] Nallely Hogue RN Unavailable Unavailable Jan Mahmood MD Unavailable +[phone] Brandt Quintana MD Unavailable +[phone] Jan Mahmood MD Unavailable +[phone] Rio Jaquez MD Unavailable +[phone] Dom Eason MD Unavailable +[phone] Jayla Plaza RN Unavailable +[phone] Sydnee [...] Unavailable +[phone] Dom Eason MD Unavailable +[phone] Wagner Oliver MD Unavailable +[phone] Laura Epperson NP Unavailable +[phone] Thom Taveras MD Unavailable +[phone] Joesph Crowe MD Unavailable + [phone] Joesph Crowe MD Unavailable + [phone] Adonay Haq MD Unavailable +[phone] Denilson Srinivasan MD Unavailable + [phone] Jason Alvares MD Unavailable Ruth Riddle DPM, Podiatry /Foot and Ankle Surgery Unavailable Omar Carmona MD Primary Care Provider +1- Jignesh Mathias MD Unavailable Adonay Haq MD Unavailable +1- Omar Carmona MD Unavailable +[phone] Jason Alvares MD Unavailable Jignesh Mathias MD Unavailable Ayad Lopez PhD Unavailable +[phone] Gavi Nieto-C Unavailable +[phone] Encounter Details Date Type Department Care Team (Late st Contact Info) Description 05/12/2022 [facility] [address] [place] [address] Luis Arrington MD [address] [place] [address] Social History Tobacco Use Types Packs/Day [...] Answer Date Recorded PHQ-2 Score 1 05/07/2022 [facility] of Occupat ional [facility] - Occupational Stress Questionnaire Answer Date [...] Sex Assigned at Female 09/12/2020 12:05 PM BEATER LEAD Legal Sex Female 3:26 AM BEATER LEAD Gender Identity Female 09/12/2020 12:05 PM BEATER LEAD Sexual Orientation Straight 12/19/2021 10 :44 [...] st Contact Info) Description 06/13/2025 6:00 PM BEATER LEAD Ancillary Procedure [facility] Imaging Center CT Clinic [address] [place] [address] Omar Carmona MD [address] [place] [address] [phone] 06/14/2025 4:00 PM BEATER LEAD Office Visit [facility] Primary Care Clinic [address] [place] [phone] Omar Carmona MD [address] [place] [address] [id number] 06/15/2025 12:45 PM BEATER LEAD Therapy Visit [facility] Rehabilitation Services [address] [phone] Jason Alvares MD [address] [place] [address] [phone] Chaya Castillo [facility]TR [facility] 150 [place] [address] 06/19/2025 10:30 AM BEATER LEAD Virtual Visit [facility] Primary Care Clinic [address] [place] [address] 4th [place] [phone] Omar Carmona MD [address] [place] [address] 140865 Gerson Santos, [facility] 06/26/2025 11:00 AM BEATER LEAD Therapy Visit [address] [phone] Jason Alvares MD [address] [place] [address] 337645 Chaya Castillo [facility]TR [facility] 150 [place] [address] 07/09/2025 12:45 PM BEATER LEAD Therapy Visit [address] [phone] Jason Alvares MD [address] [place] [address] 077645 Chaya Castillo [facility]TR [facility] 150 [place] [address] 07/18/2025 3:00 PM BEATER LEAD Office Visit [facility] Heart Clinic [address] [phone] Adonay Chapman APRN [address] 792585 11/05/2025 12:30 PM CDT Lab [facility] Lab [place] [address] [place] [address] 1st [place] [phone] 11/05/2025 1:45 PM CDT Office Visit [facility] Dermatology Clinic [address] [place] [phone] Gavi Nieto PA-C Dermatology [address] [place] [address] 76262 11/20/2025 10:30 AM CDT Virtual Visit [address] [phone] Marquise Hanley MD [address] [place] [address] 014685 documented as of this encounter Goals Goal [...] documented as of this encounter Care Teams Retail Stocker Relationship Specialty Start Date End Date Rio Jaquez MD [address] [place] [address] 99608 PCP - General Family Practice 12/02/10 07/13/24 Omar Carmona MD [address] [place] [address] 31033 PCP - General Family Medicine 07/14/24 Barry Kilpatrick MD [address] [place] [address] [id number] [place] [address] Neurology 07/19/14 Michelle Henderson I, RN Nurse Coordinator Neurology 07/19/14 Rio Jaquez MD [address] [place] [address] [address] 4 [place], [place] 926865 Family Practice 10/15/14 Jemima Jaramillo MD manager e commerce 11/20/14 Kelley Chin RN [address] 615345 Nurse Coordinator Cardiology 11/04/15 Sydnee Saleem MD 420 [facility] 508 [place], [place] 447705 Cardiology 11/04/15 Karlene Moya MD [address] [place] [address] [phone] Ophthalmology 06/24/17 Wilbert Quintero, OD [address] [place] [address] 784195 Optometry 06/24/17 Rod Gauthier DPM [address] [place] [address] 844365 Front Desk Representative Primary Podiatric Medicine 06/21/18 Nallely Hogue, RN Registered Nurse 02/20/19 11/23/22 Jan Mahmood MD 516 [facility] 2A [place] [address] Gastroenterology 11/05/20 Brandt Quintnaa MD 1414 [place] [address] Resident 11/05/20 Jan Mahmood MD 516 [facility] 2A [place] [address] Assigned Gastroenterology Provider 12/01/20 Rio Jaquez MD 909 [facility] 4 [place] [address] Assigned PCP 11/17/20 09/30/24 Dom Eason MD [address] [place] [address] 353 [place] [address] Internal Medicine 12/02/20 Jayla Plaza RN Specialty Form Setter [employer] Forms Hepatology 01/09/21 02/13/24 Sydnee Saleem MD [address] [phone] Assigned Heart and Vascular Provider 02/02/21 07/24/22 Jaimie Vernon, TANIA Specialty Form Setter [employer] Forms Cardiology 10/28/21 Ruth Riddle DPM, Podiatry/Foot and Ankle Surgery [address] [facility] 300 [place] [address] Assigned Musculoskeletal Provider 11/30/21 09/30/23 Jason Alvares MD [address] [place] [address] 58524 Assigned Neuroscience Provider 01/03/22 05/15/22 Marquise Hanley MD [address] [place] [address] 93253 Endocrinology, Diabetes, and Metabolism 03/05/22 Vlad Ramey MD [address] [place] [address] 095085 Cardiovascular Disease 05/07/22 Joesph Crowe MD [address] [place] [address] 39468 Surgery 05/07/22 Luis Arrington MD [address] [place] [address] 168735 Assigned Neuroscience Provider 05/16/22 05/14/23 Michelle Padilla RN Specialty Form Setter [employer] Cardiology 07/03/22 Vlad Ramey MD [address] [place] [address] 454255 Assigned Heart and Vascular Provider 07/25/22 05/28/23 Marquise Hanley MD [address] [place] [address] 78934 Assigned Endocrinology Provider 08/15/22 Dom Eason MD [address] [place] [address] 59291 Assigned Nephrology Provider 11/28/22 02/19/23 Wagner Oliver MD [address] [address] Critical Care 12/15/22 Laura Epperson NP 717 [facility] 1932 [place] [address] Assigned Nephrology Provider 02/20/23 08/30/24 Thom Taveras MD [address] [place], [place] 4659[address] [place] [address] Assigned Cancer Care Provider 02/06/23 08/20/23 Joesph Crowe MD [address] [place] [address] 55418 Surgery 03/17/23 Joesph Crowe MD [address] [place] [address] 98707 Assigned Surgical Provider 04/03/23 09/30/24 Adonay Haq MD [address] [place] [address] 67967 Internal Medicine 06/14/23OctoberDenilson MD [address] [facility] [address] [place] [address] Assigned Heart and Vascular Provider 05/29/23 11/28/24 Jasno Alvares MD 420 [facility] 295 [place] [address] Assigned Neuroscience Provider 05/15/23 11/28/24 Ruth Riddle DPVik, Podiatry/Foot and Ankle Surgery [address] [place] [address] [place] [address] 66321 Assigned Musculoskeletal Provider 10/22/23 Jignesh Mathias MD [address] [place] [address] 69481 Gastroenterology 09/25/24 Adonay Haq MD [address] [place] [address] 389445 Assigned PCP 10/01/24 12/28/24 Omar Carmona MD [address] [place] [address] 233365 Assigned PCP 12/29/24 Jason Alvares MD [address] [place] [address] 667125 Assigned Neuroscience Provider 12/29/24 Jignesh Mathias MD [address] [place] [address] 629975 Assigned Surgical Provider 12/29/24 yAad Lopez, PhD LP [address] [place] [address] 919565 Assigned Behavioral Health Provider 02/28/25 Gavi Nieto PANavinC [address] [place] [address] 696495 Physician Technical Aide Dermatology 03/19/25 documented as of this encounter
--- OUTSIDE RECORDS SUMMARY | 2025-06-10 11:35 | XMS_ITS | Encounter Summary ---
Author Organization [facility] Address [address] [place] [address] 61616 Care Team Providers Care Textile Designer Name Role Phone Rio Jaquez MD Primary Care Provider + [phone] Barry Kilpatrick MD Unavailable Michelle Henderson RN Unavailable +[phone] Rio Jaquez MD Unavailable +[phone] Jemima Jaramillo MD Unavailable Unavai Kelley Bautista RN Unavailable +[phone] Sydnee Saleem MD Unavailable +[phone] Karlene Moya MD Unavailable +[phone] Wilbert Quintero OD Unavailable +[phone] Rod Gauthier DPM Unavailable +[phone] Nallely Hogue RN Unavailable Unavailable Jan Mahmood MD Unavailable +[phone] Brandt Quintana MD Unavailable +[phone] Jan Mahmood MD Unavailable +[phone] Rio Jaquez MD Unavailable +[phone] Dom Eason MD Unavailable +[phone] Jayla Plaza RN Unavailable +[phone] Sydnee [...] Unavailable +[phone] Dom Eason MD Unavailable +[phone] Wagner Oliver MD Unavailable +[phone] Laura Epperson NP Unavailable +-[phone] Thom Taveras MD Unavailable +[phone] Joesph Crowe MD Unavailable + [phone] Joesph Crowe MD Unavailable + [phone] Adonay Haq MD Unavailable +[phone] Denilson Srinivasan MD Unavailable + [phone] Jason Alvares MD Unavailable Ruth Riddle DPM, Podiatry /Foot and Ankle Surgery Unavailable Omar Carmona MD Primary Care Provider +1- Jignesh Mathias MD Unavailable Adonay Haq MD Unavailable +1- Omar Carmona MD Unavailable +[phone] Jason Alvares MD Unavailable Jignesh Mathias MD Unavailable Ayad Lopez PhD Unavailable +[phone] Gavi Nieto-C Unavailable +[phone] Encounter Details Date Type Department Care Team (Late st Contact Info) Description 04/24/2022 External Order Results [facility] [address] [place] [address] Outside, Provider HLD (hyperlipidemia) Social History Tobacco [...] Answer Date Recorded PHQ-2 Score 2 04/21/2022 [facility] [...] Assigned at Female 09/12/2020 12:05 PM SPORTS WRITER Legal Sex Female 3:26 AM SPORTS WRITER Gender Identity Female 09/12/2020 12:05 PM SPORTS WRITER Sexual Orientation Straight 12/19/2021 10 :44 [...] Contact Info) Description 06/13/2025 6:00 PM SPORTS WRITER Ancillary Procedure [facility] Imaging [facility] Clinic [address] [phone] Omar Carmona MD [address] [place] [address] [phone] 06/14/2025 4:00 PM SPORTS WRITER Office Visit [facility] Primary Care Clinic [address] 4th [place] [phone] Omar Carmona MD [address] [place] [address] [phone] 06/15/2025 12:45 PM SPORTS WRITER Therapy Visit [facility] Rehabilitation Services [address] [address] Jason Alvares MD [address] [place] [address] [phone] Chaya Castillo, WESR [address] [address] 06/19/2025 10:30 AM SPORTS WRITER Virtual Visit [facility] [address] [place] [address] 4th [place] [phone] Omar Carmona MD [address] [place] [address] 819825 Gerson Santos [facility] 06/26/2025 11:00 AM SPORTS WRITER Therapy Visit [facility] [address] [place] [phone] Jason Alvares MD [address] [place] [address] Chaya Castillo OTR [facility] 150 [place] [address] 07/09/2025 12:45 PM SPORTS WRITER Therapy Visit [facility] 150 [place] [phone] Jason Alvares MD [address] [place] [address] 39266 Chaya Castillo OTR [facility] 150 [place] [address] 07/18/2025 3:00 PM SPORTS WRITER Office Visit [facility] Heart Clinic [address] [phone] Adonay Chapman APRN [address] 550525 11/05/2025 12:30 PM CDT Lab [facility] Lab [address] [phone] 11/05/2025 1:45 PM CDT Office Visit [facility] Dermatology Clinic [place] 909 [facility] 3rd [place] [phone] Gavi Nieto PA-C Dermatology [address] [place] [address] 11/20/2025 10:30 AM CDT Virtual Visit [address] [phone] Marquise Hanley MD [address] [place] [address]2331 documented as of this encounter Goals Goal [...] documented as of this encounter Care Teams Textile Designer Relationship Specialty Start Date End Date Rio Jaquez MD [address] [place] [address] [phone] PCP - General Family Practice 12/02/10 07/13/24 Omar Carmona MD [address] [place] [address] 889485 PCP - General Family Medicine 07/14/24 Barry Kilpatrick MD [address] [place] [address] [id number] [place], [place] 018725 Neurology 07/19/14 Michelle Henderson RN Nurse Coordinator Neurology 07/19/14 Rio Jaquez MD [address] [place] [address] 667005 Family Practice 10/15/14 Jemima Jaramillo MD metal riveting machine operator 11/20/14 Kelley Chin, TANIA [address] [phone] Nurse Coordinator Cardiology 11/04/15 Sydnee Saleem MD 420 [facility] 508 [place], [place] 163425 Cardiology 11/04/15 Karlene Moya MD [address] [place] [address] 490935 Ophthalmology 06/24/17 Wilbert Quintero, OD [address] [place] [address], [place] [address] Optometry 06/24/17 Rod Gauthier DPM [address] [place] [address] 26151 Grad Intern Primary Podiatric Medicine 06/21/18 Nallely Hogue, TANIA Registered Nurse 02/20/19 11/23/22 Jan Mahmood MD [address] [place] [address] Gastroenterology 11/05/20 Brandt Quintana MD [facility] [place] [address] Resident 11/05/20 Jan Mahmood MD [address] [place] [address] Assigned Gastroenterology Provider 12/01/20 Rio Jaquez MD [address] [place] [address] 92644 Assigned PCP 11/17/20 09/30/24 Dom Eason MD [address] [place] [address] 9[address] Internal Medicine 12/02/20 Jayla Plaza, RN Specialty Manuscript Reader Hepatology 01/09/21 02/13/24 Sydnee Saleem MD [address] [address] Assigned Heart and Vascular Provider 02/02/21 07/24/22 Jaimie [place], RN Specialty Manuscript Reader Cardiology 10/28/21 Ruth Riddle, DPM, Podiatry/Foot and Ankle Surgery [address] [place] [address] Assigned Musculoskeletal Provider 11/30/21 09/30/23 Jason Alvares MD [address] [place] [address] [phone] Assigned Neuroscience Provider 01/03/22 05/15/22 Marquise Hanley MD [address] [place] [address] [phone] Endocrinology, Diabetes, and Metabolism 03/05/22 Vlad Ramey MD [address] [place] [address] 213255 Cardiovascular Disease 05/07/22 Joesph Crowe MD [address] [place] [address] [phone] Surgery 05/07/22 Luis Arrington MD [address] [place] [address] Assigned Neuroscience Provider 05/16/22 05/14/23 Michelle Padilla RN Specialty Manuscript Reader Cardiology 07/03/22 Vlad Ramey MD [address] [place] [address] [phone] Assigned Heart and Vascular Provider 07/25/22 05/28/23 Marquise Hanley MD 9 [place] [address] Assigned Endocrinology Provider 08/15/22 Dom Eason MD 717 [facility] [address] [place] [address] Assigned Nephrology Provider 11/28/22 02/19/23 Wagner Oliver MD [address] [place] [address] Critical Care 12/15/22 Laura Epperson NP 7 [facility] [address] [place] [address] Assigned Nephrology Provider 02/20/23 08/30/24 Thom Taveras MD [facility] [address], [address] [place] [address] Assigned Cancer Care Provider 02/06/23 08/20/23 Joesph Crowe MD [address] [place] [address] 6[address] Surgery 03/17/23 Joesph Crowe MD [address] [place] [address] 98247 Assigned Surgical Provider 04/03/23 09/30/24 Adonay Haq MD [address] [place] [address]61 Internal Medicine 06/14/23October, Denilson [place] MD [address] [place] [address] Assigned Heart and Vascular Provider 05/29/23 11/28/24 Jason Alvares MD [address] 709395 Assigned Neuroscience Provider 05/15/23 11/28/24 Ruth Riddle DPM, Podiatry/Foot and Ankle Surgery [address] [place] [address] Assigned Musculoskeletal Provider 10/22/23 Jignesh Mathias MD [address] [place] [address]58 Gastroenterology 09/25/24 Adonay Haq MD [address] [place] [address] 103985 Assigned PCP 10/01/24 12/28/24 Omar Carmona MD [address] [place] [address] 79287 Assigned PCP 12/29/24 Jason Alvares MD [address] [place] [address] 00245 Assigned Neuroscience Provider 12/29/24 Jignesh Mathias MD [address] [place] [address] 43574 Assigned Surgical Provider 12/29/24 Ayad Lopez, PhD LP [address] [place] [address] 524115 Assigned Behavioral Health Provider 02/28/25 Gavi Nieto PA-C [address] [place] [address] [phone] Physician Fiscal Analyst Dermatology 03/19/25 documented as of this encounter
--- OUTSIDE RECORDS SUMMARY | 2025-06-10 11:35 | XMS_ITS | Encounter Summary ---
Author Organization [facility] Address [address] [place] [address] 42575 Care Team Providers Care Cooling System Operator Name Role Phone Rio Jaquez MD Primary Care Provider + [phone] Barry Kilpatrick MD Unavailable Michelle Henderson RN Unavailable +[phone] Rio Jaquez MD Unavailable +[phone] Jemima Jaramillo MD Unavailable Unavai Kelley Bautista RN Unavailable +[phone] Sydnee Saleem MD Unavailable +[phone] Karlene Moya MD Unavailable +[phone] Wilbert Quintero OD Unavailable +[phone] Rod Gauthier DPM Unavailable +[phone] Nallely Hogue RN Unavailable Unavailable Jan Mahmood MD Unavailable +[phone] Brandt Quintana MD Unavailable +[phone] Jan Mahmood MD Unavailable +[phone] Rio Jaquez MD Unavailable +[phone] Dom Eason MD Unavailable +[phone] Jayla Plaza RN Unavailable +[phone] Sydnee [...] Unavailable +[phone] Dom Eason MD Unavailable +[phone] Wagner Oliver MD Unavailable +[phone] ZeenatLaura rodriguez NP Unavailable +[phone] Thom Taveras MD Unavailable +[phone] Joesph Crowe MD Unavailable +[phone] Joesph Crowe MD Unavailable + [phone] Adonay Haq MD Unavailable +[phone] Denilson Srinivasan MD Unavailable + [phone] [facility] Un[facility] Ruth Riddle DPM, Podiatry /Foot and Ankle Surgery Unavailable Omar Carmona MD Primary Care Provider +[phone] Jignesh Mathias MD Unavailable Adonay Haq MD Unavailable +1- Omar Carmona MD Unavailable Jason Alvares MD Unavailable Jignesh Mathias MD Unavailable Ayad Lopez PhD LP Unavailable +[phone] Gavi Nieto PA-C Unavailable +[phone] Encounter Details Date Type Department Care Team (Late st Contact Info) Description 06/16/[address] [facility] Hepatology Clinic [address] [phone] Jan Mahmood MD [address] [place] [address] [address] [place] [address] Social History Tobacco Use Types [...] Answer Date Recorded PHQ-2 Score 1 06/17/2022 [facility] Occupat [facility] Health [...] Sex Assigned at Female 09/12/2020 12:05 PM AWS SOLUTION ARCHITECT Legal Sex Female 3:26 AM AWS SOLUTION ARCHITECT Gender Identity Female 09/12/2020 12:05 PM AWS SOLUTION ARCHITECT Sexual Orientation Straight 12/19/2021 10 :44 [...] to have Coronavirus/COVID-19? Yes 06/17/2022 8:17 AM AWS SOLUTION ARCHITECT documented as of this encounter Plan of Treatment Upcoming Encounters Date Type Department Care Team (Late st Contact Info) Description 06/13/2025 6:00 PM AWS SOLUTION ARCHITECT Ancillary Procedure [facility] Imaging [facility] Clinic [address]st [place] [phone] Omar Carmona MD [address] [place] [address] 622015 06/14/2025 4:00 PM AWS SOLUTION ARCHITECT Office Visit [facility] Primary Care Clinic [address]th [place] [phone] Omar Carmona MD [address] [place] [address] 06/15/2025 12:45 PM AWS SOLUTION ARCHITECT Therapy Visit [facility] Rehabilitation Services [facility] 150 [place] [phone] Jason Alvares MD [address] [place] [address] 295 [place], [place] 0[address]255 Chaya Castillo OTR [facility] 150 [place] [address] 06/19/2025 10:30 AM AWS SOLUTION ARCHITECT Virtual Visit [facility] Primary Care Clinic [address] [place] [address] 4th [place] [phone] Omar Carmona MD [address] [place] [address] [phone] Gerson Santos, [facility] 06/26/2025 11:00 AM AWS SOLUTION ARCHITECT Therapy Visit [address] [phone] Jason Alvares MD [address] [place] [address] 344545 [facility] [address] [place] [address] 07/09/2025 12:45 PM AWS SOLUTION ARCHITECT Therapy Visit [address] [phone] Jason Alvares MD [address] [place] [address] 962735 Chaya Castillo [facility] [address] [place] [address] 07/18/2025 3:00 PM AWS SOLUTION ARCHITECT Office Visit [facility] Heart Clinic [address] [phone] Adonay Chapman APRN [address] 953715 11/05/2025 12:30 PM CDT Lab [address] 1st [place] [phone] 11/05/2025 1:45 PM CDT Office Visit [facility] Dermatology Clinic [address] [place] [phone] Gavi Nieto PA-C Dermatology [address] [place] [address] 11/20/2025 10:30 AM CDT Virtual Visit [address] [phone] Marquise Hanley MD [address] [place] [address] 15[address] documented as of this encounter Goals Goal [...] documented as of this encounter Care Teams Cooling System Operator Relationship Specialty Start Date End Date Rio Jaquez MD [address] [place] [address] 07109 PCP - General Family Practice 12/02/10 07/13/24 Omar Carmona MD [address] [place] [address] 28910 PCP - General Family Medicine 07/14/24 Barry Kilpatrick MD [address] [place] [address] [id number] [place] [address] Neurology 07/19/14 Michelle Henderson I, RN Nurse Coordinator Neurology 07/19/14 Rio Jaquez MD [address] [place] [address] [address] [place], [place] 951805 Family Practice 10/15/14 Jemima Jaramillo MD electronic security technician 11/20/14 Kelley Chin RN [address] [address] Nurse Coordinator Cardiology 11/04/15 Sydnee Saleem MD [address] [place] [address] 508 [place], [place] 509435 Cardiology 11/04/15 Karlene Moya MD [address] [place] [address] 065925 Ophthalmology 06/24/17 Wilbert Quintero, OD [address] [place] [address] 272015 Optometry 06/24/17 Rod Gauthier DPM [address] [place] [address] 212775 Biochemist Primary Podiatric Medicine 06/21/18 Nallely Hogue, RN Registered Nurse 02/20/19 11/23/22 Jan Mahmood MD 516 [facility] 2A [place] [address] Gastroenterology 11/05/20 Brandt Quintana MD 1414 [place] [address] Resident 11/05/20 Jan Mahmood MD 6 [facility] 2A [place] [address] Assigned Gastroenterology Provider 12/01/20 Rio Jaquez MD 909 [facility] 4 [place] [address] Assigned PCP 11/17/20 09/30/24 Dom Eason MD [address] [place] [address] 353 [place] [address] Internal Medicine 12/02/20 Jayla Plaza, RN Specialty Chemical Milling Processor Hepatology 01/09/21 02/13/24 Sydnee Saleem MD [address] [place] [address] [phone] Assigned Heart and Vascular Provider 02/02/21 07/24/22 Jaimie [place], TANIA Specialty Chemical Milling Processor Cardiology 10/28/21 Ruth Riddle DPM, Podiatry/Foot and Ankle Surgery [address] [place] [address] Assigned Musculoskeletal Provider 11/30/21 09/30/23 Marquise Hanley MD [address] [place] [address] Endocrinology, Diabetes, and Metabolism 03/05/22 Vlad Ramey MD [address] [place] [address] 83323 Cardiovascular Disease 05/07/22 Joesph Crowe MD [address] [place] [address] 13890 Surgery 05/07/22 Luis Arrington MD [address] [place] [address] 01546 Assigned Neuroscience Provider 05/16/22 05/14/23 Michelle Padilla RN Specialty Chemical Milling Processor Cardiology 07/03/22 Vlad Ramey MD [address] [place] [address]85 Assigned Heart and Vascular Provider 07/25/22 05/28/23 Marquise Hanley MD [address] [place] [address] 71857 Assigned Endocrinology Provider 08/15/22 Dom Eason MD [address] [place] [address] 73[address] Assigned Nephrology Provider 11/28/22 02/19/23 Wagner Oliver MD [address] [place] [address] Critical Care 12/15/22 Laura Epperson NP 717 [facility] [address] [place] [address] Assigned Nephrology Provider 02/20/23 08/30/24 Thom Taveras MD [address] [facility], [address] [place] [address] Assigned Cancer Care Provider 02/06/23 08/20/23 Joesph Crowe MD [address] [place] [address] 168615 MD Surgery 03/17/23 Joesph Crowe MD 9 [place], [place] 142415 Assigned Surgical Provider 04/03/23 09/30/24 Adonay Haq MD [address] [place] [address] 605545 Internal Medicine 06/14/23OctoberDenilson MD [address] [facility] [address] [place], [place] 488265 Assigned Heart and Vascular Provider 05/29/23 11/28/24 aJson Alvares MD 420 [facility] [address] [place], [place] 000925 Assigned Neuroscience Provider 05/15/23 11/28/24 Ruth Riddle, DPM, Podiatry/Foot and Ankle Surgery [address] [place], [place] 488087 Assigned Musculoskeletal Provider 10/22/23 Jignesh Mathias MD [address] [place] [address] 526865 Gastroenterology 09/25/24 Adonay Haq MD [address] [place] [address] 334245 Assigned PCP 10/01/24 12/28/24 Omar Carmona MD [address] [place] [address] Assigned PCP 12/29/24 Jason Alvares MD [address] [place] [address] 860225 Assigned Neuroscience Provider 12/29/24 Jignesh Mathias MD [address] [place] [address] 969085 Assigned Surgical Provider 12/29/24 Ayad Lopez, PhD LP [address] [place] [address] 678285 Assigned Behavioral Health Provider 02/28/25 Gavi Nieto PANavinC [address] [place] [address] [phone] Physician [facility] Dermatology 03/19/25 documented as of this encounter
--- OUTSIDE RECORDS SUMMARY | 2025-06-10 11:35 | XMS_ITS | Encounter Summary ---
Author Organization [facility] Address [address] [place] [address]015 Care Team Providers Care District Engineer Name Role Phone Rio Jaquez MD Primary Care Provider Barry Kilpatrick MD Unavailable Michelle Henderson I RN Unavailable [phone] Rio Jaquez MD Unavailable +[phone] Jemima Jaramillo MD Unavailable Unavai Kelley Bautista RN Unavailable +[phone] Sydnee Saleem MD Unavailable +[phone] Karlene Moya MD Unavailable +[phone] Wilbert Quintero OD Unavailable +[phone] Rod Gauthier DPM Unavailable +[phone] Jan Mahmood MD Unavailable +[phone] Brandt Quintana MD Unavailable Jan Mahmood MD Unavailable +[phone] Rio Jaquez MD Unavailable +[phone] Dom Eason MD Unavailable + [phone] [place], Jaimie RN Unavailable Unavailable Marquise Hanley MD Unavailable +[phone] Vlad Ramey MD Unavailable +[phone] Joesph Crowe MD Unavailable + [phone] Michelle Padilla RN Unavailable Unavaila ble Marquise Hanley MD Unavailable +[phone] Wagner Oliver MD Unavailable +[phone] Laura Epperson NP Unavailable +[phone] Joesph Crowe MD Unavailable +[phone] Joesph Crowe MD Unavailable + [phone] Adonay Haq MD Unavailable +[phone] Denilson Srinivasan MD Unavailable + [phone] Jason Alvares MD Unavailable Ruth RiddleM, Podiatry /Foot and Ankle Surgery Unavailable Omar Carmona MD Primary Care Provider [phone] Jignesh Mathias MD Unavailable Adonay Haq MD Unavailable [phone] Omar Carmona MD Unavailable +[phone] Jason Alvares MD Unavailable Jignesh Mathias MD Unavailable Ayad Lopez PhD LP Unavailable +[phone] Gavi Nieto PA-C Unavailable [phone] Encounter Details Date Type Department Care Team (Late st Contact Info) Description 05/23/2024 [facility] [address] [address] Georgina Don, RN Social History [...] Answer Date Recorded PHQ-2 Score 2 02/28/2024 [facility] - Occupational Stress Questionnaire [...] Sex Assigned at Female 09/12/2020 12:05 PM COMPLIANCE AND CONTROL ANALYST Legal Sex Female 3:26 AM COMPLIANCE AND CONTROL ANALYST Gender Identity Female 09/12/2020 12:05 PM COMPLIANCE AND CONTROL ANALYST Sexual Orientation Straight 12/19/2021 10 :44 AM CDT Occupation Industry Job Start Date Job End Date on disability for FMS Not on file Not on file Not on file disabled Not on file Not on file Not on file documented as of this encounter Plan of Treatment Upcoming Encounters Date Type Department Care Team (Late st Contact Info) Description 06/13/2025 6:00 PM COMPLIANCE AND CONTROL ANALYST Ancillary Procedure [facility] [address] [address] Omar Carmona MD [address] [place] [address] 06/14/2025 4:00 PM COMPLIANCE AND CONTROL ANALYST Office Visit [facility] [address] [phone] Omar Carmona MD [address] [place] [address] 06/15/2025 12:45 PM COMPLIANCE AND CONTROL ANALYST Therapy Visit [facility] [address] [place] [phone] Jason Alvares MD [address] [place] [address] 440285 Chaya Castillo OTR [address] [phone] 06/19/2025 10:30 AM COMPLIANCE AND CONTROL ANALYST Virtual Visit [facility] Care [address] [phone] Omar Carmona MD [address] [place] [address] 515695 Gerson Santos [facility] 06/26/2025 11:00 AM COMPLIANCE AND CONTROL ANALYST Therapy Visit [facility] [address] [place] [phone] Jason Alvares MD [address] [place] [address] 465545 Chaya Castillo OTMari [address] 973327 07/09/2025 12:45 PM COMPLIANCE AND CONTROL ANALYST Therapy Visit [facility] [address] [place] [phone] Jason Alvares MD [address] [place] [address] Chaya Castillo, LETA [address] [address] 07/18/2025 3:00 PM COMPLIANCE AND CONTROL ANALYST Office Visit [facility] Heart [address] [phone] Adonay Chapman APRN [facility] [address] [place] [address] 11/05/2025 12:30 PM CDT Lab [address] [place] [phone] 11/05/2025 1:45 PM CDT Office Visit [facility] Dermatology [address] [place] [phone] Gavi Nieto PA-C Dermatology [address] [place] [address] 11/20/2025 10:30 AM CDT Virtual Visit [address] [phone] Marquise Hanley MD [address] [place] [address] [phone] documented as of this encounter Goals Goal [...] as of this encounter Care Teams District Engineer Relationship Specialty Start Date End Date Rio Jaquez MD [address] [place] [address] PCP - General Family Practice 12/02/10 07/13/24 Omar Carmona MD [address] [place] [address] 90[address] PCP - General Family Medicine 07/14/24 Barry Kilpatrick MD [address] [place] [address] [id number] [place], [place] 355265 Neurology 07/19/14 Michelle Henderson RN Nurse Coordinator Neurology 07/19/14 Rio Jaquez MD [address] [place] [address] 97377 Family Practice 10/15/14 Jemima Jaramillo MD hand trimmer 11/20/14 Kelley Chin, TANIA [address] [phone] Nurse Coordinator Cardiology 11/04/15 Sydnee Saleem MD 420 [facility] [address] [place], [place] 314505 Cardiology 11/04/15 Karlene Moya MD [address] [place] [address] 700505 Ophthalmology 06/24/17 Wilbert Quintero, OD [address] [place] [address] Optometry 06/24/17 Rod Gauthier DPM [address] [place] [address] 14464 Heater Engineer Helper Primary Podiatric Medicine 06/21/18 Jan Mahmood MD [address] [place] [address] Gastroenterology 11/05/20 Brandt Quintana MD [address] [place] [address] Resident 11/05/20 Jan Mahmood MD [address] [place] [address] 33964 Assigned Gastroenterology Provider 12/01/20 Rio Jaquez MD [address] [place] [address] Assigned PCP 11/17/20 09/30/24 Dom Eason MD [address] [place] [address]187 Internal Medicine 12/02/20 Jaimie Vernon, TANIA Specialty Kiln Remover Cardiology 10/28/21 Marquise Hanley MD [address] [place] [address] 22518 Endocrinology, Diabetes, and Metabolism 03/05/22 Vlad Ramey MD [address] [place] [address] 13662 Cardiovascular Disease 05/07/22 Joesph Crowe MD [address] [place] [address] 91217 Surgery 05/07/22 Michelle Padilla, RN Specialty Kiln Remover Cardiology 07/03/22 Marquise Hanley MD [address] [place] [address] Assigned Endocrinology Provider 08/15/22 Wagner Oliver MD [address] [place] [address] Critical Care 12/15/22 Laura Epperson NP [address] [place], [place] [address] [place] [address] Assigned Nephrology Provider 02/20/23 08/30/24 Joesph Crowe MD [address] [place] [address] 64[address] Surgery 03/17/23 Joesph Crowe MD [address] [place] [address] 13231 Assigned Surgical Provider 04/03/23 09/30/24 Adonay Haq MD [address] [place] [address] 09184 Internal Medicine 06/14/23OctoberDenilson MD [address] [place], [place] 889005 Assigned Heart and Vascular Provider 05/29/23 11/28/24 Jason Alvares MD [address] [place] [address] [address] [place], [place] 210825 Assigned Neuroscience Provider 05/15/23 11/28/24 Ruth Riddle, DPM, Podiatry/Foot and Ankle Surgery [address] [place], [place] 192007 Assigned Musculoskeletal Provider 10/22/23 Jignesh Mathias MD [address] [place] [address] 707495 Gastroenterology 09/25/24 Adonay Haq MD [address] [place] [address] 328555 Assigned PCP 10/01/24 12/28/24 Omar Carmona MD [address] [place] [address] 808345 Assigned PCP 12/29/24 Jason Alvares MD [address] [place] [address] [address] [place], [place] 448545 Assigned Neuroscience Provider 12/29/24 Jignesh Mathias MD [address] [place] [address] 28413 Assigned Surgical Provider 12/29/24 Ayad Lopez, PhD LP [address] [place] [address] [phone] Assigned Behavioral Health Provider 02/28/25 Gavi Nieto PA-C [address] [place], [place] 826835 Physician Nuclear Physicist Dermatology 03/19/25 documented as of this encounter
--- OUTSIDE RECORDS SUMMARY | 2025-06-10 11:35 | XMS_ITS | Encounter Summary ---
Author Organization [facility] Address [address] [place] [address] 68448 Care Team Providers Care Supervisor Home Restoration Service Name Role Phone Rio Jaquez MD Primary Care Provider Barry Kilpatrick MD Unavailable Michelle Henderson I RN Unavailable [phone] Rio Jaquez MD Unavailable +[phone] Jemima Jaramillo MD Unavailable Unavai Kelley Bautista RN Unavailable [phone] Sydnee Saleem MD Unavailable [phone] Karlene Moya MD Unavailable +[phone] Wilbert Quintero OD Unavailable +[phone] Rod Gauthier DPM Unavailable +[phone] Jan Mahmood MD Unavailable [phone] Brandt Quintana MD Unavailable +[phone] Jan Mahmood MD Unavailable +[phone] Rio Jaquez MD Unavailable +[phone] Dom Eason MD Unavailable + [phone] [place], Jaimie RN Unavailable Unavailable Marquise Hanley MD Unavailable +[phone] Vlad Ramey MD Unavailable +[phone] Joesph Crowe MD Unavailable + [phone] Michelle Padilla RN Unavailable Unavaila ble Marquise Hanley MD Unavailable +[phone] Wagner Oliver MD Unavailable +[phone] Laura Epperson NP Unavailable +[phone] Joesph Crowe MD Unavailable + [phone] Joesph Crowe MD Unavailable +[phone] Adonay Haq MD Unavailable [phone] OctoberDenilson MD Unavailable +[phone] Jason Alvares MD Unavailable Ruth Riddle DPM, Podiatry /Foot and Ankle Surgery Unavailable Omar Carmona MD Primary Care Provider [phone] Jignesh Mathias MD Unavailable Adonay Haq MD Unavailable [phone] Omar Carmona MD Unavailable [phone] Jason Alvares MD Unavailable Jignesh Mathias MD Unavailable Ayad Lopez PhD LP Unavailable +[phone] Gavi Nieto PA-C Unavailable +[phone] Encounter Details Date Type Department Care Team (Late st Contact Info) Description 05/12/2024 [facility] Heart [address] [address] Vlad Ramey MD [address] [place] [address] Social History Tobacco Use Types Packs/Day [...] than three times a week 08/27/2021 Attends Confucianism Services Not on file 08/27 Do you [...] Answer Date Recorded PHQ-2 Score 2 02/28/2024 [facility]ational Stress Questionnaire Answer Date [...] Assigned at Female 09/12/2020 12:05 PM HAND CUTTER APPRENTICE Legal Sex Female 3:26 AM HAND CUTTER APPRENTICE Gender Identity Female 09/12/2020 12:05 PM HAND CUTTER APPRENTICE Sexual Orientation Straight 12/19/2021 10 :44 AM CDT Occupation Industry Job Start Date Job End Date on disability for FMS Not on file Not on file Not on file disabled Not on file Not on file Not on file documented as of this encounter Plan of Treatment Upcoming Encounters Date Type Department Care Team (Late st Contact Info) Description 06/13/2025 6:00 PM HAND CUTTER APPRENTICE Ancillary Procedure [facility] [address] [phone] Omar Carmona MD [address] [place] [address] 06/14/2025 4:00 PM HAND CUTTER APPRENTICE Office Visit [facility] [address] [phone] Omar Carmona MD [address] [place] [address] 06/15/2025 12:45 PM HAND CUTTER APPRENTICE [facility] [address] [place] [phone] Jason Alvares MD [address] [place] [address] Chaya Castillo, OTR [facility] [address] [place], [place] 276837 06/19/2025 10:30 AM HAND CUTTER APPRENTICE Virtual Visit [facility] [address] [phone] Omar Carmona MD [address] [place] [address] Gerson Santos [facility] 06/26/2025 11:00 AM HAND CUTTER APPRENTICE [facility] [address] [facility] [place] [phone] Jason Alvares MD [address] [place] [address] [phone] Chaya Castillo, OTR [facility] [address] [place] [address] 07/09/2025 12:45 PM HAND CUTTER APPRENTICE [facility] [address] [place] [address]14 Jason Alvares MD 420 [facility] [address] [place] [address] Chaya Castillo, OTR [facility] [address] [place] [address] 07/18/2025 3:00 PM HAND CUTTER APPRENTICE Office Visit [facility] Heart [address] [phone] Adonay Chapman APRN [facility] 500 [place], [place] 0[address] 11/05/2025 12:30 PM CDT Lab [facility] [address] [place] [phone] 11/05/2025 1:45 PM CDT Office Visit [facility] Dermatology [address] [phone] Gavi Nieto PA-C Dermatology [address] [place] [address] 11/20/2025 10:30 AM CDT Virtual Visit [address] [address] Marquise Hanley MD [address] [place] [address] 24266 documented as of this encounter Goals Goal [...] as of this encounter Care Teams Supervisor Home Restoration Service Relationship Specialty Start Date End Date Rio Jaquez MD [address] [place] [address] 4 [place] [address] PCP - General Family Practice 12/02/10 07/13/24 Omar Carmona MD [address] [place] [address] 403175 PCP - General Family Medicine 07/14/24 Barry Kilpatrick MD [address] [place] [address] [id number] [place], [place] 793525 Neurology 07/19/14 Michelle Henderson I, RN Nurse Coordinator Neurology 07/19/14 Rio Jaquez MD [address] [place] [address] 351755 Family Practice 10/15/14 Jemima Jaramillo MD painter and decorator 11/20/14 Kelley Chin, TANIA [address] 953325 Nurse Coordinator Cardiology 11/04/15 Sydnee Saleem MD [address] [place] [address] 508 [place], [place] [phone] Cardiology 11/04/15 Karlene Moya MD [address] [place] [address] Ophthalmology 06/24/17 Wilbert Quintero OD 9 [place], [place] 096925 Optometry 06/24/17 Rod Gauthier DPM [address] [place] [address] 250595 Shoveler Primary Podiatric Medicine 06/21/18 Jan Mahmood MD [address] [phone] Gastroenterology 11/05/20 Brandt Quintana MD [address] [place] [address] Resident 11/05/20 Jan Mahmood MD [address] 851365 Assigned Gastroenterology Provider 12/01/20 Rio Jaquez MD [address] 081255 Assigned PCP 11/17/20 09/30/24 Dom Eason MD [address] 230894 Internal Medicine 12/02/20 Jaimie Vernon, RN Specialty Environmental Lead Cardiology 10/28/21 Marquise Hanley MD [address] [place] [address] [phone] Endocrinology, Diabetes, and Metabolism 03/05/22 Vlad Ramey MD [address] [place] [address] 42047 Cardiovascular Disease 05/07/22 Joesph Crowe MD [address] [place] [address] 42274 Surgery 05/07/22 Michelle Padilla, RN Specialty Environmental Lead Cardiology 07/03/22 Marquise Hanley MD [address] [place] [address]30 Assigned Endocrinology Provider 08/15/22 Wagner Oliver MD [address] [place] [address] Critical Care 12/15/22 Laura Epperson NP [address] [place], [place] [address] [place] [address] Assigned Nephrology Provider 02/20/23 08/30/24 Joesph Crowe MD [address] [place] [address] 98907 Surgery 03/17/23 Joesph Crowe MD [address] [place] [address] 87944 Assigned Surgical Provider 04/03/23 09/30/24 Adonay Haq MD [address] [place] [address]390 Internal Medicine 06/14/23OctoberDenilson MD [address] [place] [address] Assigned Heart and Vascular Provider 05/29/23 11/28/24 Jason Alvares MD [address] [place] [address] Assigned Neuroscience Provider 05/15/23 11/28/24 Ruth Riddle DPM, Podiatry/Foot and Ankle Surgery [address] [place] [address] Assigned Musculoskeletal Provider 10/22/23 Jignesh Mathias MD [address] [place] [address]47 Gastroenterology 09/25/24 Adonay Haq MD [address] [place] [address] Assigned PCP 10/01/24 12/28/24 Omar Carmona MD [address] [place] [address] 94274 Assigned PCP 12/29/24 Jason Alvares MD [address] [place] [address] 91885 Assigned Neuroscience Provider 12/29/24 Jignesh Mathias MD [address] [place] [address] 12939 Assigned Surgical Provider 12/29/24 Ayad Lopez, PhD LP [address] [place] [address] Assigned Behavioral Health Provider 02/28/25 Gavi Nieto PA-C [address] [place] [address] Physician Production Controller Dermatology 03/19/25 documented as of this encounter
--- OUTSIDE RECORDS SUMMARY | 2025-06-10 11:35 | XMS_ITS | Encounter Summary ---
Author Organization [place] Address [address] [place] [address] 98[address] Care Team Providers Care Compensation Director Name Role Phone Rio Jaquez MD Primary Care Provider + [phone] Barry Kilpatrick MD Unavailable Michelle Henderson RN Unavailable +[phone] Rio Jaquez MD Unavailable +[phone] Jemima Jaramillo MD Unavailable Unavai Kelley Bautista RN Unavailable +[phone] Sydnee Saleem MD Unavailable +[phone] Karlene Moya MD Unavailable +[phone] Wilbert Quintero OD Unavailable +[phone] Rod Gauthier DPM Unavailable +[phone] Nallely Hogue RN Unavailable Unavailable Jan Mahmood MD Unavailable +[phone] Brandt Quintana MD Unavailable +[phone] Jan Mahmood MD Unavailable +[phone] Rio Jaquez MD Unavailable +[phone] Dom Eason MD Unavailable +[phone] Jayla Plaza RN Unavailable +[phone] Sydnee [...] Unavailable +[phone] Dom Eason MD Unavailable +[phone] Wagner Oliver MD Unavailable +[phone] Laura Epperson NP Unavailable +-[phone] Thom Taveras MD Unavailable +[phone] Joesph Crowe MD Unavailable + [phone] Joesph Crowe MD Unavailable + [phone] Adonay Haq MD Unavailable +[phone] Denilson Srinivasan MD Unavailable + [phone] Jason Alvares MD Unavailable Ruth Riddle DPM, Podiatry /Foot and Ankle Surgery Unavailable Omar Carmona MD Primary Care Provider +1- Jignesh Mathias MD Unavailable Adonay Haq MD Unavailable +1- Omar Carmona MD Unavailable +[phone] Jason Alvares MD Unavailable Jignesh Mathias MD Unavailable Ayad Lopez PhD LP Unavailable +[phone] Gavi Nieto-C Unavailable +[phone] Encounter Details Date Type Department Care Team (Late st Contact Info) Description 05/12/2022 MyC Medical Advice [facility] Hepatology Clinic [address] [address] Jan Mahmood MD [address] [place] [address] 2[address] [place] [address] Social History Tobacco Use Types [...] Answer Date Recorded PHQ-2 Score 1 05/07/2022 [facility] of Occupat ional [facility] - Occupational Stress Questionnaire Answer [...] Sex Assigned at Female 09/12/2020 12:05 PM TANKERMAN Legal Sex Female 3:26 AM TANKERMAN Gender Identity Female 09/12/2020 12:05 PM TANKERMAN Sexual Orientation Straight 12/19/2021 10 :44 AM [...] st Contact Info) Description 06/13/2025 6:00 PM TANKERMAN Ancillary Procedure [facility] [address] [place] [address] Omar Carmona MD [address] [place] [address] 945415 06/14/2025 4:00 PM TANKERMAN Office Visit [facility] [address] [place] [address] Omar Carmona MD [address] [place] [address] [phone] 06/15/2025 12:45 PM TANKERMAN Therapy Visit [facility] Rehabilitation Services [address] [phone] Jason Alvares MD [address] [place] [address] Chaya Castillo [facility] [address] [place] [address] 06/19/2025 10:30 AM TANKERMAN Virtual Visit [facility] [address] [place] [address] 4th [place] [phone] Omar Carmona MD [address] [place] [address] [phone] Gerson Santos, [facility] 06/26/2025 11:00 AM TANKERMAN Therapy Visit [address] [phone] Jason Alvares MD [address] [place] [address] 747475 [facility] [address] [place] [address] 07/09/2025 12:45 PM TANKERMAN Therapy Visit [facility] 150 [place] [phone] Jason Alvares MD [address] [place] [address] 762935 [facility] 150 [place] [address] 07/18/2025 3:00 PM TANKERMAN Office Visit [facility] Heart Clinic [address] [phone] Adonay Chapman APRN [address] 906335 11/05/2025 12:30 PM CDT Lab [facility] Lab [address] 1st [place] [phone] 11/05/2025 1:45 PM CDT Office Visit [facility] Dermatology Clinic [address] 3rd [place] [phone] Gavi Nieto PA-C Dermatology [address] [place] [address] 11/20/2025 10:30 AM CDT Virtual Visit [address] [phone] Marquise Hanley MD [address] [place] [address] 465725 documented as of this encounter Goals Goal [...] documented as of this encounter Care Teams Compensation Director Relationship Specialty Start Date End Date Rio Jaquez MD [address] [place] [address] 36726 PCP - General Family Practice 12/02/10 07/13/24 Omar Carmona MD [address] [place] [address] 76085 PCP - General Family Medicine 07/14/24 Barry Kilpatrick MD [address] [place] [address] [id number] [place], [place] 201255 Neurology 07/19/14 Michelle Henderson RN Nurse Coordinator Neurology 07/19/14 Rio Jaquez MD [address] [place] [address] [address] 4 [place], [place] 164065 Family Practice 10/15/14 Jemima Jaramillo MD tank driver 11/20/14 Kelley Chin RN [address] 704645 Nurse Coordinator Cardiology 11/04/15 Sydnee Saleem MD 420 [facility] 508 [place], [place] 412125 Cardiology 11/04/15 Karlene Moya MD [address] [place] [address] [phone] Ophthalmology 06/24/17 Wilbert Quintero, OD [address] [place] [address] 119395 Optometry 06/24/17 Rod Gauthier DPM [address] [place] [address] 689995 [facility] Primary Podiatric Medicine 06/21/18 Nallely Hogue, RN Registered Nurse 7/15/19 4/17/23 Jan Mahmood MD 516 [facility] 2A [place] [address] Gastroenterology 11/05/20 Brandt Quintana MD 1414 [place] [address] Resident 11/05/20 Jan Mahmood MD 516 [facility] 2A [place] [address] Assigned Gastroenterology Provider 12/01/20 Rio Jaquez MD 909 [facility] 4 [place] [address] Assigned PCP 11/17/20 09/30/24 Dom Eason MD [address] [place] [address] 353 [place] [address] Internal Medicine 12/02/20 Jayla Plaza RN Specialty Railroad Car Truck Builder Hepatology 01/09/21 02/13/24 Sydnee Saleem MD [address] [phone] Assigned Heart and Vascular Provider 02/02/21 07/24/22 Jaimie Vernon, TANIA Specialty Railroad Car Truck Builder Cardiology 10/28/21 Ruth Riddle DPM, Podiatry/Foot and Ankle Surgery 85378 [facility] 300 [place] [address] Assigned Musculoskeletal Provider 11/30/21 09/30/23 Jason Alvares MD [address] [place] [address] 19917 Assigned Neuroscience Provider 01/03/22 05/15/22 Marquise Hanley MD [address] [place] [address] 63904 Endocrinology, Diabetes, and Metabolism 03/05/22 Vlad Ramey MD [address] [place] [address] 194555 Cardiovascular Disease 05/07/22 Joesph Crowe MD [address] [place] [address] 36188 Surgery 05/07/22 Luis Arrington MD [address] [place] [address] 38098 Assigned Neuroscience Provider 05/16/22 05/14/23 Michelle Padilla RN Specialty Railroad Car Truck Builder Cardiology 07/03/22 Vlad Ramey MD [address] [place] [address] 96111 Assigned Heart and Vascular Provider 07/25/22 05/28/23 Marquise Hanley MD [address] [place] [address] 68941 Assigned Endocrinology Provider 08/15/22 Dom Eason MD [address] [place] [address] 18328 Assigned Nephrology Provider 11/28/22 02/19/23 Wagner Oliver MD [address] [address] Critical Care 12/15/22 Laura Epperson NP 717 [facility] 1932 [place] [address] Assigned Nephrology Provider 02/20/23 08/30/24 Thom Taveras MD [address] [place] [address] R105 [place] [address] Assigned Cancer Care Provider 02/06/23 08/20/23 Joesph Crowe MD [address] [place] [address] 78904 Surgery 03/17/23 Joesph Crowe MD [address] [place] [address] 88973 Assigned Surgical Provider 04/03/23 09/30/24 Adonay Haq MD [address] [place] [address] 98794 Internal Medicine 06/14/23OctoberDenilson MD [address] [facility] [address] [place] [address] Assigned Heart and Vascular Provider 05/29/23 11/28/24 Jason Alvares MD 420 [facility] 295 [place] [address] Assigned Neuroscience Provider 05/15/23 11/28/24 Ruth Riddle DPM, Podiatry/Foot and Ankle Surgery [address] [place] [address] Assigned Musculoskeletal Provider 10/22/23 Jignesh Mathias MD [address] [place] [address] 97474 Gastroenterology 09/25/24 Adonay Haq MD [address] [place] [address] 50582 Assigned PCP 10/01/24 12/28/24 Omar Carmona MD [address] [place] [address] 62310 Assigned PCP 12/29/24 Jason Alvares MD [address] [place] [address] 76960 Assigned Neuroscience Provider 12/29/24 Jignesh Mathias MD [address] [place] [address] 92678 Assigned Surgical Provider 12/29/24 Ayad Lopez, PhD LP [address] [place] [address] 185965 Assigned Behavioral Health Provider 02/28/25 Gavi Nieto PANavinC [address] [place] [address] 163515 Physician Immunology Teacher Dermatology 03/19/25 documented as of this encounter
--- OUTSIDE RECORDS SUMMARY | 2025-06-10 11:35 | XMS_ITS | Encounter Summary ---
Author Organization [place] Address [address] [place] [address] Care Team Providers Care Inoculator Name Role Phone Rio Jaquez MD Primary Care Provider + [phone] Barry Kilpatrick MD Unavailable Michelle Henderson RN Unavailable Rio Jaquez MD Unavailable +[phone] Jeimma Jaramillo MD Unavailable Unavai Kelley Bautista RN Unavailable +[phone] Sydnee Saleem MD Unavailable +[phone] Karlene Moya MD Unavailable +[phone] Wilbert Quintero OD Unavailable +[phone] Rod Gauthier DPM Unavailable +[phone] Nallely Hogue RN Unavailable Unavailable Jan Mahmood MD Unavailable +[phone] Brandt Quintana MD Unavailable +[phone] Jan Mahmood MD Unavailable +[phone] Rio Jaquez MD Unavailable +[phone] Dom aEson MD Unavailable +[phone] Jayla Plaza RN Unavailable +[phone] Sydnee [...] Unavailable +[phone] Dom Eason MD Unavailable +[phone] Wagner Oliver MD Unavailable +[phone] Laura Epperson NP Unavailable +[phone] Thom Taveras MD Unavailable +[phone] Joesph Crowe MD Unavailable + [phone] Joesph Crowe MD Unavailable + [phone] Adonay Haq MD Unavailable +[phone] Denilson Srinivasan MD Unavailable + [phone] Jason Alvares MD Unavailable Ruth Riddle DPM, Podiatry /Foot and Ankle Surgery Unavailable Omar Carmona MD Primary Care Provider +1- Jignesh Mathias MD Unavailable Adonay Haq MD Unavailable +1- Omar Carmona MD Unavailable +[phone] Jason Alvares MD Unavailable Jignesh Mathias MD Unavailable Ayad Lopez PhD Unavailable +[phone] Gavi Nieto-C Unavailable +[phone] Encounter Details Date Type Department Care Team (Late st Contact Info) Description 04/08/2022 MyC Medical Advice [facility] Hepatology Clinic [address] [address] Jayla Plaza RN Social History [...] any clubs o r organizations such as zoroastrian groups, unions, fraternal or athletic groups, or [...] Answer Date Recorded PHQ-2 Score 1 02/16/2022 [facility] of Occupat ional [...] Sex Assigned at Female 09/12/2020 12:05 PM MATERIAL SPREADER Legal Sex Female 3:26 AM MATERIAL SPREADER Gender Identity Female 09/12/2020 12:05 PM MATERIAL SPREADER Sexual Orientation Straight 12/19/2021 10 :44 AM [...] st Contact Info) Description 06/13/2025 6:00 PM MATERIAL SPREADER Ancillary Procedure [facility] Imaging Center CT Clinic [address] [phone] Omar Carmona MD [address] [place] [address] [phone] 06/14/2025 4:00 PM MATERIAL SPREADER Office Visit [facility] Primary Care Clinic [address]th [place] [phone] Omar Carmona MD [address] [place] [address] 412395 06/15/2025 12:45 PM MATERIAL SPREADER Therapy Visit [facility] Rehabilitation Services [address] [phone] Jason Alvares MD [address] [place] [address] 295 [place], [place] [phone] Chaya Castillo OTR [facility] 150 [place] [address] 06/19/2025 10:30 AM MATERIAL SPREADER Virtual Visit [facility] Primary [facility] Clinic [address] [place] [address] 4th [place] [phone] Omar Carmona MD [address] [place] [address] 200465 Gerson Santos [facility] 06/26/2025 11:00 AM MATERIAL SPREADER Therapy Visit [address] [phone] Jason Alvares MD [address] [place] [address] 097145 Chaya Castillo OTR [facility] [place] 150 [place] [address] 07/09/2025 12:45 PM MATERIAL SPREADER Therapy Visit [address] [phone] Jason Alvares MD [address] [place] [address] 869465 [facility] [facility] 150 [place] [address] 07/18/2025 3:00 PM MATERIAL SPREADER Office Visit [facility] Heart Clinic [address] [phone] Adonay Chapman APRN [address] 048475 11/05/2025 12:30 PM CDT Lab [facility] Lab [address] [place] [phone] 11/05/2025 1:45 PM CDT Office Visit [facility] Dermatology Clinic [address]rd [place] [phone] Gavi Nieto PA-C Dermatology [address] [place] [address] 11/20/2025 10:30 AM CDT Virtual Visit [address] [address] Marquise Hanley MD [address] [place] [address] 02232 documented as of this encounter Goals Goal [...] documented as of this encounter Care Teams Inoculator Relationship Specialty Start Date End Date Rio Jaquez MD [address] [place] [address] 85149 PCP - General Family Practice 12/02/10 07/13/24 Omar Carmona MD [address] [place] [address] 67712 PCP - General Family Medicine 07/14/24 Barry Kilpatrick MD [address] [place] [address] [id number] [place] [address] Neurology 07/19/14 Michelle Henderson I, RN Nurse Coordinator Neurology 07/19/14 Rio Jaquez MD [address] [place] [address] 4 [place], [place] 313645 Family Practice 10/15/14 Jemima Jaramillo MD weight loss consultant 11/20/14 Kelley Chin RN [address] 248065 Nurse Coordinator Cardiology 11/04/15 Sydnee Saleem MD [address] [place] [address] 508 [place], [place] 605205 Cardiology 11/04/15 Karlene Moya MD [address] [place] [address] 987075 Ophthalmology 06/24/17 Wilbert Quintero, OD [address] [place] [address] 681705 Optometry 06/24/17 Rod Gauthier DPM [address] [place] [address] 047695 Customer Relations Consultant Primary Podiatric Medicine 06/21/18 Nallely Hogue, RN Registered Nurse 02/20/19 11/23/22 Jan Mahmood MD 516 [facility] 2A [place] [address] Gastroenterology 11/05/20 Brandt Quintana MD 1414 [place] [address] Resident 11/05/20 Jan Mahmood MD 516 [facility] 2A [place] [address] Assigned Gastroenterology Provider 12/01/20 Roi Jaquez MD 909 [facility] 4 [place] [address] Assigned PCP 11/17/20 09/30/24 Dom Eason MD [address] [place] [address] 353 [place] [address] Internal Medicine 12/02/20 Jayla Plaza, RN Specialty Er Rn Hepatology 01/09/21 02/13/24 Sydnee Saleem MD 6550 [facility] [address] [place] [address] [phone] Assigned Heart and Vascular Provider 02/02/21 07/24/22 Jaimie Vernon, TANIA Specialty Er Rn Cardiology 10/28/21 Ruth Riddle DPM, Podiatry/Foot and Ankle Surgery 66198 [facility]EL 300 [place] [address] Assigned Musculoskeletal Provider 11/30/21 09/30/23 Jason Alvares MD [address] [place] [address] 58668 Assigned Neuroscience Provider 01/03/22 05/15/22 Marquise Hanley MD [address] [place] [address] Endocrinology, Diabetes, and Metabolism 03/05/22 Vlad Ramey MD [address] [place] [address] 45766 Cardiovascular Disease 05/07/22 Joesph Crowe MD [address] [place] [address] Surgery 05/07/22 Luis Arrington MD [address] [place] [address] 21473 Assigned Neuroscience Provider 05/16/22 05/14/23 Michelle Padilla RN Specialty Er Rn Cardiology 07/03/22 Vlad Ramey MD [address] [place] [address] 39569 Assigned Heart and Vascular Provider 07/25/22 05/28/23 Marquise Hanley MD [address] [place] [address] 66404 Assigned Endocrinology Provider 08/15/22 Dom Eason MD [address] [place] [address] 48277 Assigned Nephrology Provider 11/28/22 02/19/23 Wagner Oliver MD [address] [place] [address] Critical Care 12/15/22 Laura Epperson NP 717 [facility] 1932 [place] [address] Assigned Nephrology Provider 02/20/23 08/30/24 Thom Taveras MD [address], R105 [place], [place] 231774 Assigned Cancer Care Provider 02/06/23 08/20/23 Joesph Crowe MD 909 [place], [place] 060795 Surgery 03/17/23 Joesph Crowe MD 909 [place], [place] 692435 Assigned Surgical Provider 04/03/23 09/30/24 Adonay Haq MD 909 [place] [address] Internal Medicine 06/14/23OctoberDenilson MD [address] [place] [address] Assigned Heart and Vascular Provider 05/29/23 11/28/24 Jason Alvares MD 420 [facility] 295 [place] [address] Assigned Neuroscience Provider 05/15/23 11/28/24 Ruth Riddle DPM, Podiatry/Foot and Ankle Surgery [address] [place] [address] Assigned Musculoskeletal Provider 10/22/23 Jignesh Mathias MD [address] [place] [address] 257535 Gastroenterology 09/25/24 Adonay Haq MD [address] [place] [address] [phone] Assigned PCP 10/01/24 12/28/24 Omar Carmona MD [address] [place] [address] 770225 Assigned PCP 12/29/24 Jason Alvares MD [address] [place] [address] 197195 Assigned Neuroscience Provider 12/29/24 Jignesh Mathias MD [address] [place] [address] 36197 Assigned Surgical Provider 12/29/24 Ayad Lopez, PhD LP [address] [place] [address] 729065 Assigned Behavioral Health Provider 02/28/25 Gavi Nieto, PA-C [address] [place] [address]18 Physician General Foreman Dermatology 03/19/25 documented as of this encounter
--- OUTSIDE RECORDS SUMMARY | 2025-06-10 11:35 | XMS_ITS | Encounter Summary ---
Author Organization [facility] Address [address] [place] [address] 8[address] Care Team Providers Care Management Architect Name Role Phone Rio Jaquez MD Primary Care Provider + [phone] Barry Kilpatrick MD Unavailable Michelle Henderson RN Unavailable +[phone] Rio Jaquez MD Unavailable +[phone] Jemima Jaramillo MD Unavailable Unavai Kelley Bautista RN Unavailable +[phone] Sydnee Saleem MD Unavailable +[phone] Karlene Moya MD Unavailable +[phone] Wlibert Quintero OD Unavailable +[phone] Rod Gauthier DPM Unavailable +[phone] Nallely Hogue RN Unavailable Unavailable Jan Mahmood MD Unavailable +[phone] Brandt Quintana MD Unavailable +[phone] Jan Mahmood MD Unavailable +[phone] Rio Jaquez MD Unavailable +[phone] Dom Eason MD Unavailable +[phone] Jayla Plaza RN Unavailable +[phone] Sydnee [...] Unavailable +[phone] Dom Eason MD Unavailable +[phone] Wagner Oliver MD Unavailable +[phone] Laura Epperson NP Unavailable +[phone] Thom Taveras MD Unavailable +[phone] Joesph Crowe MD Unavailable + [phone] Joesph Crowe MD Unavailable + [phone] Adonay Haq MD Unavailable +[phone] Denilson Srinivasan MD Unavailable + [phone] Jason Alvares MD Unavailable Ruth Riddle DPM, Podiatry /Foot and Ankle Surgery Unavailable Omar Carmona MD Primary Care Provider +[phone]- Jignesh Mathias MD Unavailable Adonay Haq MD Unavailable +1- Omar Carmona MD Unavailable +[phone] Jason Alvares MD Unavailable Jignesh Mathias MD Unavailable Ayad Lopez PhD Unavailable +[phone] Gavi Nieto-C Unavailable +[phone] Encounter Details Date Type Department Care Team (Late st Contact Info) Description 03/26/2022 [facility] Medical Advice [facility] [address] 4th [place] [address] Rio Jaquez MD [address] [place] [address] 4 [place] [address] Social History Tobacco Use Types [...] Answer Date Recorded PHQ-2 Score 1 02/16/2022 [facility] of Occupat ional [facility] - Occupational Stress Questionnaire Answer [...] Sex Assigned at Female 09/12/2020 12:05 PM BARREL ENDSHAKER ADJUSTER Legal Sex Female 3:26 AM BARREL ENDSHAKER ADJUSTER Gender Identity Female 09/12/2020 12:05 PM BARREL ENDSHAKER ADJUSTER Sexual Orientation Straight 12/19/2021 10 :44 [...] st Contact Info) Description 06/13/2025 6:00 PM BARREL ENDSHAKER ADJUSTER Ancillary Procedure [facility] [address] 1st [place] [address] Omar Carmona MD [address] [place] [address] 754885 06/14/2025 4:00 PM BARREL ENDSHAKER ADJUSTER Office Visit [facility] [address] 4th [place] [address] Omar Carmona MD [address] [place] [address] 689315 06/15/2025 12:45 PM BARREL ENDSHAKER ADJUSTER Therapy Visit [facility] Services [address] [phone] Jason Alvares MD [address] [place] [address] Chaya Castillo OTR [facility] [address] [place] [address] 06/19/2025 10:30 AM BARREL ENDSHAKER ADJUSTER Virtual Visit [facility] [address] [place] [address] 4th [place] [phone] Omar Carmona MD [address] [place] [address] 035145 Gerson Santos, [facility] 06/26/2025 11:00 AM BARREL ENDSHAKER ADJUSTER Therapy Visit [facility] 150 [place] [phone] Jason Alvares MD [address] [place] [address] 269645 Chaya Castillo OTR [facility] [address] [place] [address] 07/09/2025 12:45 PM BARREL ENDSHAKER ADJUSTER [facility] 150 [place] [phone] Jason Alvares MD [address] [place] [address] 997915 Chaya Castillo OTR [facility] [address] [place] [address] 07/18/2025 3:00 PM BARREL ENDSHAKER ADJUSTER Office Visit [facility] [address] [phone] Adonay Chapman APRN [address] 718125 11/05/2025 12:30 PM CDT Lab [facility] Lab [address] 1st [place] [phone] 11/05/2025 1:45 PM CDT Office Visit [facility] Dermatology Clinic [address] 3rd [place] [phone] Gavi Nieto PA-C Dermatology [address] [place] [address] 11/20/2025 10:30 AM CDT Virtual Visit [address] [address] Marquise Hanley MD [address] [place] [address] [phone] documented as of this encounter Goals Goal [...] documented as of this encounter Care Teams Management Architect Relationship Specialty Start Date End Date Rio Jaquez MD [address] [place] [address] 70653 PCP - General Family Practice 12/02/10 07/13/24 Omar Carmona MD [address] [place] [address] 096425 PCP - General Family Medicine 07/14/24 Barry Kilpatrick MD [address] [place] [address] [id number] [place], [place] 022305 Neurology 07/19/14 Michelle Henderson RN Nurse Coordinator Neurology 07/19/14 Rio Jaquez MD [address] [place] [address] [address] 4 [place], [place] 772925 Family Practice 10/15/14 Jemima Jaramillo MD sole assessor 11/20/14 Kelley Chin RN [address] 725675 Nurse Coordinator Cardiology 11/04/15 Sydnee Saleem MD 420 [facility] 508 [place], [place] 615635 Cardiology 11/04/15 Karlene Moya MD [address] [place] [address] 757575 Ophthalmology 06/24/17 Wilbert Quintero, OD [address] [place] [address] 901475 Optometry 06/24/17 Rod Gauthier, STANISLAWM [address] [place] [address] 150565 Surgical Elastic Knitter Hand Frame Primary Podiatric Medicine 06/21/18 Nallely Hogue, RN Registered Nurse 02/20/19 11/23/22 Jan Mahmood MD 516 [facility] 2A [place] [address] Gastroenterology 11/05/20 Brandt Quintana MD 1414 [place] [address] Resident 11/05/20 Jan Mahmood MD 516 [facility] 2A [place] [address] Assigned Gastroenterology Provider 12/01/20 Rio Jaquez MD 909 [facility] 4 [place] [address] Assigned PCP 11/17/20 09/30/24 Dom Eason MD [address] [place] [address] 353 [place] [address] Internal Medicine 12/02/20 Jayla Plaza RN Specialty Rolled Oats Mill Operator Hepatology 01/09/21 02/13/24 Sydnee Saleem MD [address] [phone] Assigned Heart and Vascular Provider 02/02/21 07/24/22 Jaimie Vernon, TANIA Specialty Rolled Oats Mill Operator Cardiology 10/28/21 Ruth Riddle DPM, Podiatry/Foot and Ankle Surgery [address] [facility] 300 [place] [address] Assigned Musculoskeletal Provider 11/30/21 09/30/23 Jason Alvares MD [address] [place] [address] 97867 Assigned Neuroscience Provider 01/03/22 05/15/22 Marquise Hanley MD [address] [place] [address] 31145 Endocrinology, Diabetes, and Metabolism 03/05/22 Vlad Ramey MD [address] [place] [address] 725195 Cardiovascular Disease 05/07/22 Joesph Crowe MD [address] [place] [address] 70205 Surgery 05/07/22 Luis Arrington MD [address] [place] [address] 28752 Assigned Neuroscience Provider 05/16/22 05/14/23 Michelle Padilla RN Specialty Rolled Oats Mill Operator Cardiology 07/03/22 Vlad Ramey MD [address] [place] [address] 50846 Assigned Heart and Vascular Provider 07/25/22 05/28/23 Marquise Hanley MD [address] [place] [address] 39306 Assigned Endocrinology Provider 08/15/22 Dom Eason MD [address] [place] [address] 37826 Assigned Nephrology Provider 11/28/22 02/19/23 Wagner Oliver MD [address] [address] Critical Care 12/15/22 Laura Epperson NP 717 [facility] 1932 [place] [address] Assigned Nephrology Provider 02/20/23 08/30/24 Thom Taveras MD [address] [place], [place] 0586605 [place] [address] Assigned Cancer Care Provider 02/06/23 08/20/23 Joesph Crowe MD [address] [place] [address] 37011 Surgery 03/17/23 Joesph Crowe MD [address] [place] [address] 77862 Assigned Surgical Provider 04/03/23 09/30/24 Adonay Haq MD [address] [place] [address] 9[address]34 Internal Medicine 06/14/23OctoberDenilson MD [address] [address] [place] [address] Assigned Heart and Vascular Provider 05/29/23 11/28/24 Jason Alvares MD [address] [place] [address] 295 [place] [address] Assigned Neuroscience Provider 05/15/23 11/28/24 Ruth Riddle DPM, Podiatry/Foot and Ankle Surgery [address] [place] [address] Assigned Musculoskeletal Provider 10/22/23 Jignesh Mathias MD [address] [place] [address] 25572 Gastroenterology 09/25/24 Adonay Haq MD [address] [place] [address] 11097 Assigned PCP 10/01/24 12/28/24 Omar Carmona MD [address] [place] [address] 94350 Assigned PCP 12/29/24 Jason Alvares MD [address] [place] [address] 73638 Assigned Neuroscience Provider 12/29/24 Jignesh Mathias MD [address] [place] [address] 45208 Assigned Surgical Provider 12/29/24 Ayad Lopez, PhD LP [address] [place] [address] 782025 Assigned Behavioral Health Provider 02/28/25 Gavi Nieto, PA-C [address] [place] [address] Physician Scientific Technical Writer Dermatology 03/19/25 documented as of this encounter
--- OUTSIDE RECORDS SUMMARY | 2025-06-10 11:36 | XMS_ITS | Encounter Summary ---
Author Organization [facility] Address [address] [place] [address] 86381 Care Team Providers Care School Principal Name Role Phone Rio Jaquez MD Primary Care Provider Barry Kilpatrick MD Unavailable Michelle Henderson RN Unavailable [phone] Rio Jaquez MD Unavailable [phone] Jemima Jaramillo MD Unavailable Unavai Kelley Bautista RN Unavailable [phone] Sydnee Saleem MD Unavailable +[phone] Karlene Moya MD Unavailable +[phone] Wilbert Quintero OD Unavailable +[phone] Rod Gauthier DPM Unavailable [phone] Nallely Hogue RN Unavailable Unavailable Larisa Vargas RN Unavailable Unavailable Francisco Lott MD Unavailable +[phone] Greg Ortega MD Unavailable [phone] Jan Mahmood MD Unavailable [phone] Brandt Quintana MD Unavailable +[phone] Jan Mahmood MD Unavailable Rio Jaquez [...] MD Unavailable Joesph Crowe MD Unavailable [phone] Luis Arrington MD Unavailable Michelle Padilla RN Unavailable Unavaila ble Vlad Ramey MD Unavailable Marquise Hanley MD Unavailable [phone] Dom Eason MD Unavailable Wagnre Oliver MD Unavailable Laura Epperson NP Unavailable [phone] Thom Taveras MD Unavailable Joesph Crowe MD Unavailable +[phone] Joesph Crowe MD Unavailable +[phone] Adonay Haq MD Unavailable [phone] Denilson Srinivasan MD Unavailable +[phone] Jason Alvares MD Unavailable Ruth RiddleM, Podiatry /Foot and Ankle Surgery Unavailable Omar Carmona MD Primary Care Provider [phone] Jignesh Mathias MD Unavailable Adonay Haq MD Unavailable [phone] Omar Carmona MD Unavailable [phone] Jason Alvares MD Unavailable Jignesh Mathias MD Unavailable Ayad Lopez PhD LP Unavailable +[phone] Gavi Nieto-Keisha Unavailable +[phone] Encounter Details Date Type Department Care Team (Late st Contact Info) Description 08/20/2021 [facility] [place] Initial Department [address] [place] [phone] [facility] Social History Tobacco Use Types [...] Sex Assigned at Female 09/12/2020 12:05 PM TELEGRAPH OFFICE ROUTE AIDE Legal Sex Female 3:26 AM TELEGRAPH OFFICE ROUTE AIDE Gender Identity Female 09/12/2020 12:05 PM TELEGRAPH OFFICE ROUTE AIDE Sexual Orientation Straight 12/19/2021 10 :44 AM CDT Occupation Industry Job Start Date Job End Date on disability for FMS Not on file Not on file Not on file COVID-19 Exposure Response Date Recorded In the last month, have you been in contact with someone who was confirmed or suspected to have Coronavirus / COVID-19? No / Unsure 08/19/2021 10:58 AM TELEGRAPH OFFICE ROUTE AIDE documented as of this encounter Plan of Treatment Upcoming Encounters Date Type Department Care Team (Late st Contact Info) Description 06/13/2025 6:00 PM TELEGRAPH OFFICE ROUTE AIDE Ancillary Procedure [facility] CT Clinic [address] [phone] Omar Carmona MD [address] [place] [address] 845215 06/14/2025 4:00 PM TELEGRAPH OFFICE ROUTE AIDE Office Visit [facility] [address] [phone] Omar Carmona MD [address] [place] [address] 925945 06/15/2025 12:45 PM TELEGRAPH OFFICE ROUTE AIDE Therapy Visit [address] [phone] Jason Alvares MD [address] [place] [address] [phone] Chaya Castillo, OTR [address] [address] 06/19/2025 10:30 AM TELEGRAPH OFFICE ROUTE AIDE Virtual Visit [address] [phone] Omar Carmona MD [address] [place] [address] 859945 Gerson Santos RPH 06/26/2025 11:00 AM TELEGRAPH OFFICE ROUTE AIDE Therapy Visit [address] [phone] Jason Alvares MD [address] [place] [address] Chaya Castillo OTR [facility] 150 [place] [address] 07/09/2025 12:45 PM TELEGRAPH OFFICE ROUTE AIDE Therapy Visit [facility] [address] [phone] Jason Alvares MD 420 [facility] 295 [place] [address] Chaya Castillo OTR [address] [address] 07/18/2025 3:00 PM TELEGRAPH OFFICE ROUTE AIDE Office Visit [facility] Heart [address] [phone] Adonay Chapman APRN [address] [address] 11/05/2025 12:30 PM CDT Lab [facility] Lab [address] [phone] 11/05/2025 1:45 PM CDT Office Visit [facility] Dermatology [address] [phone] Gavi Nieto PA-C Dermatology [address] [place] [address] 11/20/2025 10:30 AM CDT Virtual Visit [address] [phone] Marquise Hanley MD [address] [place] [address] documented as of this encounter Goals Goal [...] Depression Total Score: 12 021 9:43 AM TELEGRAPH OFFICE ROUTE AIDE documented as of this encounter Care Teams School Principal Relationship Specialty Start Date End Date Rio Jaquez MD [address] [place] [address] 43863 PCP - General Family Practice 12/02/10 07/13/24 Omar Carmona MD [address] [place] [address] 716295 PCP - General Family Medicine 07/14/24 Barry Kilpatrick MD [address] [place] [address] [id number] [place], [place] 680735 Neurology 07/19/14 Michelle Henderson RN Nurse Coordinator Neurology 07/19/14 Rio Jaquez MD [address] [place] [address] 080325 Family Practice 10/15/14 Jemima Jaramillo MD instruments sales representative 11/20/14 Kelley Chin, TANIA [address] 145785 Nurse Coordinator Cardiology 11/04/15 Sydnee Saleem MD [address] [place] [address] 508 [place], [place] 896965 Cardiology 11/04/15 Karlene Moya MD [address] [place] [address] 435645 Ophthalmology 06/24/17 Wilbert Quintero, OD [address] [place] [address] 907805 Optometry 06/24/17 Rod Gauthier DPM [address] [place], [place] [address]28[address] Poultry Scalder Primary Podiatric Medicine 06/21/18 Nallely Hogue, RN Registered Nurse 02/20/19 11/23/22 Larisa Vargas, TANIA Specialty Cane Feeder Cardiology 04/18/19 03/06/22 Francisco Lott MD [address] [place] [address] 88 [place], [place] 945145 Assigned Rheumatology Provider 05/31/20 12/13/21 Greg Ortega MD [address] [place] [address]64 Assigned Surgical Provider 06/23/20 12/06/21 Jan Mahmood MD [address] [place] [address] 2A [place] [address] Gastroenterology 11/05/20 Brandt Quintana MD 1414 [place] [address] Resident 11/05/20 Jan Mahmood MD [address] [facility] 2A [place] [address] Assigned Gastroenterology Provider 12/01/20 Rio Jaquez MD 909 [facility] 4 [place] [address] Assigned PCP 11/17/20 09/30/24 Dom Eason MD 717 [facility] 353 [place], [place] 181674 Internal Medicine 12/02/20 Jayla Plaza, RN Specialty Cane Feeder Hepatology 01/09/21 02/13/24 Sydnee Saleem MD [address] [place] [address] [phone] Assigned Heart and Vascular Provider 02/02/21 07/24/22 Phan Coello MD Assigned Neuroscience Provider 02/21/21 11/22/21 Cristian Barragan MD 2945 [place] [address] Assigned Infectious Disease Provider 02/21/21 03/06/22 Dom Eason MD 717 [facility] 353 [place] [address] Assigned Nephrology Provider 04/20/21 01/02/22 Jaimie Vernon, RN Specialty Cane Feeder Cardiology 10/28/21 Ruth Riddle DPM, Podiatry/Foot and Ankle Surgery [address] R[address]RIGUEZ [address] [place] [address] 43775 Assigned Musculoskeletal Provider 11/30/21 09/30/23 Luis Arrington MD [address] [place] [address] 9[address]47 Assigned Neuroscience Provider 11/23/21 01/02/22 Jason Alvares MD [address] [place] [address] 58058 Assigned Neuroscience Provider 01/03/22 05/15/22 Marquise Hanley MD [address] [place] [address] 60126 Endocrinology, Diabetes, and Metabolism 03/05/22 Vlad Ramey MD [address] [place] [address] 78358 Cardiovascular Disease 05/07/22 Joesph Crowe MD [address] [place] [address] 48656 Surgery 05/07/22 Luis Arrington MD [address] [place] [address] 20791 Assigned Neuroscience Provider 05/16/22 05/14/23 Michelle Padilla RN Specialty Cane Feeder Cardiology 07/03/22 Vlad Ramey MD [address] [place] [address] [place] [address] Assigned Heart and Vascular Provider 07/25/22 05/28/23 Marquise Hanley MD [address] [place] [address] 76558 Assigned Endocrinology Provider 08/15/22 Dom Eason MD 717 [facility] 353 [place] [address] Assigned Nephrology Provider 11/28/22 02/19/23 Wagner Oliver MD 6401 [facility] [place] [address] Critical Care 12/15/22 Laura Epperson NP [address] [place] [address] 1932 [place] [address] Assigned Nephrology Provider 02/20/23 08/30/24 Thom Taveras MD [address], R[address] [place] [address] Assigned Cancer Care Provider 02/06/23 08/20/23 Joesph Crowe MD [address] [place] [address] 49883 Surgery 03/17/23 Joesph Crowe MD [address] [place] [address] 56343 Assigned Surgical Provider 04/03/23 09/30/24 Adonay Haq MD [address] [place] [address]77 Internal Medicine 06/14/23OctoberDenilson MD [address] [facility] [address] [place] [address] Assigned Heart and Vascular Provider 05/29/23 11/28/24 Jason Alvares MD 420 [facility] 295 [place], [place] 341185 Assigned Neuroscience Provider 05/15/23 11/28/24 Ruth Riddle DPM, Podiatry/Foot and Ankle Surgery [address] [place], [place] 866317 Assigned Musculoskeletal Provider 10/22/23 Jignesh Mathias MD [address] [place] [address] 633435 Gastroenterology 09/25/24 Adonay Haq MD [address] [place] [address] 42372 Assigned PCP 10/01/24 12/28/24 Omar Carmona MD [address] [place] [address] 44768 Assigned PCP 12/29/24 Jason Alvares MD [address] [address] Assigned Neuroscience Provider 12/29/24 Jignesh Mathias MD 909 [place] [address] Assigned Surgical Provider 12/29/24 Ayad Lopez, PhD LP [address] [place] [address]28 Assigned Behavioral Health Provider 02/28/25 Gavi Nieto PA-C [address] [place] [address] [phone] Physician Soft Metals Engraver Hand Dermatology 03/19/25 documented as of this encounter
--- OUTSIDE RECORDS SUMMARY | 2025-06-10 11:36 | XMS_ITS | Encounter Summary ---
Author Organization [facility] Address [address] [place] [address] Care Team Providers Care Hospice Plan Administrator Name Role Phone Barry Kilpatrick MD Unavailable Michelle Henderson RN Unavailable [phone] Rio Jaquez MD Unavailable +[phone] Jemima Jaramillo MD Unavailable Unavai Kelley Bautista RN Unavailable [phone] Sydnee Saleem MD Unavailable [phone] Karlene Moya MD Unavailable [phone] Wilbert Quintero OD Unavailable +[phone] Rod Gauthier DPM Unavailable +[phone] Jan Mahmood MD Unavailable +[phone] Brandt Quintana MD Unavailable +[phone] Jan Mahmood MD Unavailable +[phone] Rio Jaquez MD Unavailable +[phone] Dom Eason MD Unavailable Jaimie Vernon RN Unavailable Unavailable Marquise Hanley MD Unavailable +[phone] Vlad Ramey MD Unavailable +[phone] Joesph Crowe MD Unavailable +[phone] Michelle Padilla RN Unavailable Unavaila ble Marquise Hanley MD Unavailable +[phone] Wagner Oliver MD Unavailable + [phone] Laura Epperson NP Unavailable [phone] Joesph Crowe MD Unavailable + [phone] Joesph Crowe MD Unavailable +[phone] Adonay Haq MD Unavailable [phone] OctoberDenilson MD Unavailable + [phone] Jason Alvares MD Unavailable Ruth Riddle DPM, Podiatry /Foot and Ankle Surgery Unavailable Omar Carmona MD Primary Care Provider [phone] Jignesh Mathias MD Unavailable Adonay Haq MD Unavailable [phone] Omar Carmona MD Unavailable [phone] Jason Alvares MD Unavailable Jignesh Mathias MD Unavailable Ayad Lopez PhD LP Unavailable [phone] Gavi Nieto PA-C Unavailable +[phone] Encounter Details Date Type Department Care Team (Late st Contact Info) Description 07/14/2024 [facility] [address] [phone] Gracia Akins, RN Social History [...] than three times a week 08/27/2021 Attends Muslim Services Not on file 08/27 Do you [...] Answer Date Recorded PHQ-2 Score 3 07/14/2024 [facility] [place] [facility] Occupat ional Health - Occupational Stress [...] Sex Assigned at Female 09/12/2020 12:05 PM DECORATION CHECKER Legal Sex Female 3:26 AM DECORATION CHECKER Gender Identity Female 09/12/2020 12:05 PM DECORATION CHECKER Sexual Orientation Straight 12/19/2021 10 :44 AM CDT Occupation Industry Job Start Date Job End Date on disability for FMS Not on file Not on file Not on file disabled Not on file Not on file Not on file documented as of this encounter Plan of Treatment Upcoming Encounters Date Type Department Care Team (Late st Contact Info) Description 06/13/2025 6:00 PM DECORATION CHECKER Ancillary Procedure [facility] [address] [place] [address] Omar Carmona MD [address] [place] [address] [phone] 06/14/2025 4:00 PM DECORATION CHECKER Office Visit [facility] [place] [address] [phone] Omar Carmona MD [address] [place] [address] 06/15/2025 12:45 PM DECORATION CHECKER Therapy Visit [facility] [address] [place] [phone] Jason Alvares MD [address] [place] [address] Chaya Castillo, OTR FV [address] [phone] 06/19/2025 10:30 AM DECORATION CHECKER Virtual Visit [facility] [address] [place] [phone] Omar Carmona MD [address] [place] [address] Gerson Santos [facility] 06/26/2025 11:00 AM DECORATION CHECKER Therapy Visit [facility] [address] [place] [phone] Jason Alvares MD [address] [place] [address] [phone] Chaya Castillo, OTR [facility] [address] [place], [place] [phone] 07/09/2025 12:45 PM DECORATION CHECKER Therapy Visit [facility] [address] [place] [phone] Jason Alvares MD [address] [place] [address] [phone] Chaya Castillo, OTR [address] [address] 07/18/2025 3:00 PM DECORATION CHECKER Office Visit [facility] Heart [address] [phone] Adonay Chapman APRN [facility] [address] [place], [place] 937125 11/05/2025 12:30 PM CDT Lab [facility] Lab [address] [place] [phone] 11/05/2025 1:45 PM CDT Office Visit [facility] Dermatology Clinic [address] [phone] Gavi Nieto PA-C Dermatology [address] [place] [address] 11/20/2025 10:30 AM CDT Virtual Visit [address] [phone] Marquise Hanley MD [address] [place] [address] [phone] documented as of this encounter Goals Goal [...] Depression Total Score: 10 024 9:34 AM DECORATION CHECKER documented as of this encounter Care Teams Hospice Plan Administrator Relationship Specialty Start Date End Date Ofstedal, Omar R, MD [address] [place] [address] [phone] PCP - General Family Medicine 07/14/24 Barry Kilpatrick MD [address] [place] [address] [id number] [place], [place] [phone] Neurology 07/19/14 Michelle Henderson I, RN Nurse Coordinator Neurology 07/19/14 Rio Jaquez MD [address] [place] [address] 535295 Family Practice 10/15/14 Jemima Jaramillo MD [address] [place] [address] 18036 neon electrician 11/20/14 Kelley Chin, TANIA [address] [phone] Nurse Coordinator Cardiology 11/04/15 Sydnee Saleem MD [address] [place] [address] [address] [place], [place] 367255 Cardiology 11/04/15 Karlene Moya MD [address] [place] [address] [phone] Ophthalmology 06/24/17 Wilbert Quintero, OD [address] [place] [address] 338115 Optometry 06/24/17 Rod Gauthier DPM [address] [place] [address] Certified Master Safecracker Primary Podiatric Medicine 06/21/18 Jan Mahmood MD 6 [facility] [address] [place] [address] Gastroenterology 11/05/20 Brandt Quintana MD [address] [place] [address] Resident 11/05/20 Jan Mahmood MD [address] [place] [address] Assigned Gastroenterology Provider 12/01/20 Rio Jaquez MD [address] [place] [address] 488[address] Assigned PCP 11/17/20 09/30/24 Dom Eason MD [address] [place] [address] [address] [place] [address] Internal Medicine 12/02/20 Jaimie Vernon, TANIA Specialty Honing Machine Set Up Operator Cardiology 10/28/21 Marquise Hanley MD [address] [place] [address] Endocrinology, Diabetes, and Metabolism 03/05/22 Vlad Ramey MD [address] [place] [address] 35229 Cardiovascular Disease 05/07/22 Joesph Crowe MD [address] [place] [address] Surgery 05/07/22 Michelle Padilla, RN Specialty Honing Machine Set Up Operator Cardiology 07/03/22 Marquise Hanley MD [address] [place] [address] 605[address] Assigned Endocrinology Provider 08/15/22 Wagner Oliver MD [address] [place] [address] Critical Care 12/15/22 Laura Epperson NP [address] [facility] [address] [place] [address] Assigned Nephrology Provider 02/20/23 08/30/24 Joesph Crowe MD [address] [place] [address] Surgery 03/17/23 Joesph Crowe MD [address] [place] [address] Assigned Surgical Provider 04/03/23 09/30/24 Adonay Haq MD [address] [place] [address] 42885 Internal Medicine 06/14/23 Denilson Srinivasan MD [address] [place] [address] Assigned Heart and Vascular Provider 05/29/23 11/28/24 Jason Alvares MD [address] [facility] [address] [place], [place] 739835 Assigned Neuroscience Provider 05/15/23 11/28/24 Ruth Riddle DPM, Podiatry/Foot and Ankle Surgery [address] [address] Assigned Musculoskeletal Provider 10/22/23 Jignesh Mathias MD [address] [place] [address] 201655 Gastroenterology 09/25/24 Adonay Haq MD [address] [place] [address] [phone] Assigned PCP 10/01/24 12/28/24 Omar Carmona MD [address] [place] [address] [phone] Assigned PCP 12/29/24 Jason Alvares MD [address] [place] [address] [address] [place], [place] [phone] Assigned Neuroscience Provider 12/29/24 Jignesh Mathias MD [address] [place] [address] 30448 Assigned Surgical Provider 12/29/24 Ayad Lopez, PhD LP [address] [place] [address] [phone] Assigned Behavioral Health Provider 02/28/25 Gavi Neito PA-C [address] [place] [address] [place] [address] Physician Field Rep Dermatology 03/19/25 documented as of this encounter
--- OUTSIDE RECORDS SUMMARY | 2025-06-10 11:36 | XMS_ITS | Clinical Summary ---
Author Organization [facility] Address [address] [place] [address] Care Team Providers Care Wool Mixer Name Role Phone Barry Kilpatrick MD Unavailable Michelle Henderson RN Unavailable [phone] Rio Jaquez MD Unavailable [phone] Jemima Jaramillo MD Unavailable Unavai Kelley Bautista RN Unavailable [phone] Sydnee Saleem MD Unavailable [phone] Karlene Moya MD Unavailable [phone] Wilbert Quintero OD Unavailable [phone] Rod Gauthier DPM Unavailable [phone] Jan Mahmood MD Unavailable [phone] Brandt Quintana MD Unavailable Jan Mahmood MD Unavailable [phone] Dom Eason MD Unavailable [phone] Jaimie Vernon RN Unavailable Unavailable Marquise Hanley MD Unavailable [phone] Vlad Ramey MD Unavailable [phone] Joesph Crowe MD Unavailable Michelle Padilla RN Unavailable Unavaila ble Marquise Hanley MD Unavailable [phone] Wagner Oliver MD Unavailable [phone] Joesph Crowe MD Unavailable [phone] Adonay Haq MD Unavailable [phone] Ruth RiddleM, Podiatry /Foot and Ankle Surgery Unavailable Omar Carmona MD Primary Care Provider [phone] Jignesh Mathias MD Unavailable Omar Carmona MD Unavailable [phone] Jason Alvares MD Unavailable Jignesh Mathias MD Unavailable Ayad Lopez PhD LP Unavailable [phone] Gavi Nieto-Keisha Unavailable [phone] Allergies Active Allergy Reactions Criticality Noted Date [...] (12/20/2020): Added automatically from request for surgery [id number] Metabolic encephalopathy 11/28/2020 Other cirrhosis of liver [...] For urgent after hours needs, please call [phone] and ask to speak with the Adult Congenital Heart Disease Physician nutrition faculty member - mention job code [id number]. 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 6 Sensory ganglionopathy 02/26/2015 [...] Encounters Date Type Department Care Team Description 06/10/2025 Refill [facility] Internal Medicine [address] 4th [place] [address] Adonay Haq MD Medication Refill 06/08/2025 9:00 AM CDT Office Visit [facility] Hepatology [facility] [address] [address] Jignesh Mathias MD Alcoholic cirrhosis of liver without ascites (H) (Primary Dx) 06/07/2025 9:30 AM CDT Ancillary Procedure [address] 1st [place] [phone] Jignesh Mathias MD Alcoholic cirrhosis of liver without ascites (H) 06/07/2025 Travel 06/06/2025 Results Follow-Up [facility] Hepatology [address] [phone] Jignesh Mathias MD Subj: Message about your results 06/05/2025 4:15 PM CDT Lab [facility] [address] [facility] [address] [place] [phone] Alcoholic cirrhosis of liver without ascites (H); Vitamin B1 deficiency 06/05/2025 3:00 PM CDT Therapy Visit [address] [phone] Jason Alvaers MD Peterson, Megan A, OTR Seizures, post-traumatic (H) (Primary Dx) 06/05/2025 Travel 05/31/2025 Travel 05/28/2025 10:15 AM CDT Virtual Visit [address] [phone] Omar Carmona MD Peterson, Megan A, OTR Seizures, post-traumatic (H) (Primary Dx) 05/28/2025 MyC Medical Advice [facility] Hepatology [facility] [address] [phone] Jignesh Mathias MD Alcoholic cirrhosis of liver without ascites (H) (Primary Dx) 05/28/2025 MyC Medical Advice [address] [phone] Chaya Castillo, OTR 05/27/2025 Travel 05/16/2025 11:00 AM CDT Therapy Visit [address] [phone] Jason Alvares MD Peterson, Megan A, OTR Seizures, post-traumatic (H) (Primary Dx) 05/16/2025 Results Follow-Up [address] [phone] Omar Carmona MD Subj: Message about your results 05/15/2025 12:30 PM CDT Office Visit [address] [address] Marquise Hanley MD Compression fracture of T12 vertebra, sequela (Primary Dx); Osteoporotic compression fracture of spine, with routine healing, subsequent encounter; Age-related osteoporosis with current pathological fracture, vertebra(e), initial encounter for fracture (H); Vitamin B1 deficiency 05/15/2025 Travel 05/14/2025 Travel 05/11/2025 9:30 AM CDT Therapy Visit [address] [address] Jason Alvares MD Peterson, Megan A, OTR Seizures, post-traumatic (H) (Primary Dx) 05/11/2025 Travel 05/09/2025 MyC Medical Advice [address] [phone] Omar Carmona MD 05/07/2025 Travel 05/03/2025 4:00 PM CDT Office Visit [address] [phone] Omar Carmona MD CKD (chronic kidney disease) stage 2, GFR 60-89 ml/min (Primary Dx); Screening for cardiovascular condition; Hyperlipidemia, unspecified hyperlipidemia type; Vitamin B1 deficiency; Low vitamin D level; Acquired hypothyroidism; Encounter for smoking cessation counseling; Smoker 05/03/2025 Travel 05/03/2025 MyC Medical Advice [facility] Internal Medicine [address] [phone] Andrews Dixon, TERESITA 05/03/2025 MyC Medical Advice [facility] Internal Medicine [address] [phone] Andrews Dixon, TERESITA 04/30/2025 11:00 AM CDT Therapy Visit [address] [phone] Jason Alvares MD Peterson, Megan A, OTR Seizures, post-traumatic (H) (Primary Dx) 04/30/2025 Travel 04/29/2025 Travel 04/26/2025 MyC Medical Advice [facility] [address] [phone] Omar Carmona MD 04/26/2025 MyC Medical Advice [facility] [address] [address] Jignesh Mathias MD 04/25/2025 12:45 PM CDT Office Visit [facility] Podiatry [address] [facility] [address] [place] [address] Ruth Riddle DPVik, Podiatry/Foot and Ankle Surgery Foot pain, bilateral (Primary Dx); Hammertoe of left foot; Callus of foot; Onychomycosis of toenail; Idiopathic peripheral neuropathy; Congenital bilateral pes cavus 04/25/2025 Travel 04/19/2025 Travel 04/12/2025 2:15 PM CDT Therapy Visit [address] [phone] Jason Alvares MD Peterson, Megan A, OTR Seizures, post-traumatic (H) (Primary Dx) 04/11/2025 12:30 PM CDT Office Visit [facility] [address] [place] [phone] Omar Carmona MD CKD (chronic kidney disease) stage 2, GFR 60-89 ml/min (Primary Dx); Screening for cardiovascular condition; Hyperlipidemia, unspecified hyperlipidemia type 04/11/2025 Travel 04/10/2025 Orders Only [facility] [address] [phone] Jayla Plaza RN Alcoholic cirrhosis of liver without ascites (H) 04/08/2025 Travel 04/06/2025 11:30 AM CDT Therapy Visit [facility] [address] [facility] [address] [place] [phone] Roxana Montoya, BUD Mixed stress and urge urinary incontinence (Primary Dx) 04/06/2025 Refill [facility] [address] [phone] Jignesh Mathias MD 04/05/2025 Travel 04/01/2025 Travel 03/29/2025 10:30 AM CDT Therapy Visit [facility] [phone] [place] [address] [place] [phone] Roxana Montoya, BUD Mixed stress and urge urinary incontinence (Primary Dx) 03/29/2025 Travel 03/28/2025 Travel 03/18/2025 Travel 03/12/2025 11:00 AM CDT Therapy Visit [address] [phone] Jason Alvares MD Peterson, Megan A, OTR Seizures, post-traumatic (H) (Primary Dx) 03/12/2025 Travel from Last 3 Months Immunizations Immunization Administration [...] Answer Date Recorded PHQ-2 Score 2 05/03/2025 [facility] [...] Sex Assigned at Female 09/12/2020 12:05 PM MULTIPLE CUT OFF SAW OPERATOR Legal Sex Female 3:26 AM MULTIPLE CUT OFF SAW OPERATOR Gender Identity Female 09/12/2020 12:05 PM MULTIPLE CUT OFF SAW OPERATOR Sexual Orientation Straight 12/19/2021 10 :44 [...] st Contact Info) Description 06/13/2025 6:00 PM MULTIPLE CUT OFF SAW OPERATOR Ancillary Procedure [facility] [address] [phone] Omar Carmona MD [address] [place] [address] 06/14/2025 4:00 PM MULTIPLE CUT OFF SAW OPERATOR Office Visit [facility] [address] 4th [place] [address] Omar Carmona MD [address] [place] [address] 06/15/2025 12:45 PM MULTIPLE CUT OFF SAW OPERATOR [facility] [address] [facility] [facility] [place] [phone] Jason Alvares MD [address] [place] [phone] Chaya Castillo OTR [facility] [address] [place] [address] 06/19/2025 10:30 AM MULTIPLE CUT OFF SAW OPERATOR Virtual Visit [facility] [address] [place] [address] 4th [place] [phone] Omar Carmona MD [address] [place] [phone] Gerson Santos [facility] 06/26/2025 11:00 AM MULTIPLE CUT OFF SAW OPERATOR [facility] [address] [facility] [place] [phone] Jason Alvares MD [address] [place] [address] Chaya Castillo OTR [facility] [address] [place] [address] 07/09/2025 12:45 PM MULTIPLE CUT OFF SAW OPERATOR [facility] [address] [facility] [address] [facility] [place] [phone] Jason Alvares MD [address] [place] [address] Chaya Castillo OTR [facility] [address] [place] [address] 07/18/2025 3:00 PM MULTIPLE CUT OFF SAW OPERATOR Office Visit [facility] Heart [address] [phone] Adonay Chapman APRN [facility] [address] [place] [address] 11/05/2025 12:30 PM CDT Lab [facility] Lab [address] [phone] 11/05/2025 1:45 PM CDT Office Visit [facility] Dermatology [address] [phone] Gavi Nieto PA-C [facility] [address] [place] [phone] 11/20/2025 10:30 AM CDT Virtual Visit [address] [phone] Marquise Hanley MD [address] [place] [address] [phone] Health Maintenance Due Date Last Done Comments [...] quit date Medical Devices Implanted Type Area Stenotype Operator Device Identifier Shelf Expiration Date Model / Serial / Lot Device Essure [id number] Implanted:Qty: 1 on 12/05/2014 by Jemima Jaramillo MD at [facility] Right: Fallopian Tube [employer] 12/01/2016 [id number] / / [id number] Procedures Procedure Name Priority Date/Time Associated Diagnosis Comments US ABDOMEN LIMITED Routine 06/07/2025 10 :30 AM CDT Alcoholic cirrhosis of liver without ascites (H) VITAMIN B1 PLASMA Routine 06/05/2025 4:1 3 PM CDT Vitamin B1 deficiency AFP TUMOR MARKER Routine 06/05/2025 4:13 PM [...] RANDOM URINE QUANTITATIVE Routine 07/14/2023 10:09 AM MULTIPLE CUT OFF SAW OPERATOR Essential hypertension, benign CT CHEST ABDOMEN PELVIS [...] follow-up. *Recommendations above based on LI-RADS? v2024: https://www.acr.org/Clinical-Resources/Uzoisvap-Ohepj-lvk-Reference/Re bnfagz-jtp-Dkom-Systems/LI-RADS LASHAUN FINLEY DO Narrative 06/08/2025 9:40 AM [...] follow-up. *Recommendations above based on LI-RADS? v2024: https://www.acr.org/Clinical-Resources/Jgaipdrq-Inwbp-hfq-Reference/Re gzrivd-dwh-Nbtq-Systems/LI-RADS LASHAUN FINLEY DO Jignesh Mathias MD [facility] ORDERABLES Final Result * (ABNORMAL) Vitamin B1 plasma (06/05/2025 4:13 PM CDT) Vitamin B1 21(H) 4 - 15 nmol/L 06/09/2025 11:32 PM CDT [facility] Comment: INTERPRETIVE DATA: Vitamin B1, Plasma Thiamine (vitamin B1) is reported. However, thiamine diphosphate (TDP), the biologically active form of thiamine, is not found in measurable concentrations in plasma, and is best determined in whole blood specimens. Plasma thiamine concentration reflects recent intake rather than body stores. This test was developed and its performance characteristics determined by [facility]. It has not been cleared or approved by the [place] Food and Drug Administration. This test was performed in a CLIA certified laboratory and is intended for clinical purposes. Performed By: [facility] [address] [place] [address] Bullet Slug Casting Machine Operator: Mg Rabago MD, PhD CLIA Number: [id number] Blood STRUCTURE OF RIGHT UPPER LIMB / Unknown Venipuncture / Unknown 06/05/2025 4:13 PM CDT 06/05/2025 4:14 PM CDT us Omar Carmona MD LAB - BLOOD ORDERABLES Ashly l Result [facility] [address] [place], [place] [phone] [phone] * INR [[id number]] (06/05/2025 4:13 PM CDT) INR 1.10 0.85 - 1.15 06/05/2025 7:01 PM CDT [facility] PT 14.6 11.8 - 14.8 Seconds 06/05/2025 7:01 PM CDT [facility]X LABORATORY Blood STRUCTURE OF RIGHT UPPER LIMB / Unknown Venipuncture / Unknown 06/05/2025 4:13 PM CDT 06/05/2025 4:14 PM CDT us Jignesh Mathias MD LAB - BLOOD ORDERABLES Final Res ult OX LABORATORY [facility] [address] Lab (no room number, 1st floor of clinic) [place] [address], [facility] * (ABNORMAL) Hepatic Panel [LAB20] (06/05/2025 4:13 [...] LAB - BLOOD ORDERABLES Final Res ult Performing Organization Address [facility] de Phone Number LABORATORY [facility] Core Lab [address] [place] [address], [facility] [address] [phone] * AFP tumor marker [[id number]] (06/05/2025 4:13 PM CDT) [facility] AFP tumor marker 2.5 <=8.3 ng/mL 06/06/2025 11:15 AM CDT [facility] Blood STRUCTURE OF RIGHT UPPER LIMB / Unknown Venipuncture / Unknown 06/05/2025 4:13 PM CDT 06/05/2025 4:14 PM CDT Narrative [facility] - 06/06/2025 11:15 AM CDT This result is obtained using the Maiet Elecsys AFP method on the little e801 immunoassay analyzer. Results obtained with different assay methods or kits cannot be used interchangeably. Reference ranges apply to non- females only. us Jignesh Mathias MD LAB - BLOOD ORDERABLES Final Res ult Performing Organization Address City/[facility] Co de Phone Number LABORATORY [facility] Core Lab [address] [facility], Room [address] [phone] * Basic metabolic panel [LAB15] (06/05/2025 4:13 PM CDT) [facility] Sodium 141 135 - 145 mmol/L 06/06/2025 [...] BLOOD ORDERABLES Final Res ult [facility] LABORATORY [facility] [address] [facility], [address] [place] [address] * (ABNORMAL) CBC with platelets [[id number]] (06/05/2025 4:13 PM CDT) WBC Count 6.59 [...] BLOOD ORDERABLES Final Res ult RI LABORATORY [facility] [address], [address] [place] [address], [facility] * (ABNORMAL) CBC with platelets and differential [...] BLOOD ORDERABLES Ashly l Result [facility] [address], [place] [address], [facility] * (ABNORMAL) Vitamin D Deficiency (05/15/2025 1:44 [...] intake, and treatment affect the concentration of 95-zsacpxb-Irmorym D. Values may decrease during winter months and increase during summer months. Vitamin D determination is routinely performed by an immunoassay specific for 25 hydroxyvitamin D3. If an individual is on vitamin D2(ergocalciferol) supplementation, please specify 25 OH vitamin D2 and D3 level determination by LCMSMS test VITD23. Omar Carmona MD LAB - BLOOD ORDERABLES Ashly l Result [facility] LABORATORY [facility] [address] [facility], [address] [place] [address] * TSH with free T4 reflex (05/15/2025 1:44 PM CDT) TSH 1.27 0.30 - 4.20 uIU/mL 05/15/2025 2:18 PM CDT [facility] Blood BLOOD SPECIMEN / Unknown Venipuncture / Unknown 05/15/2025 1:44 PM CDT 05/15/2025 1:47 PM CDT us Omar Carmona MD LAB - BLOOD ORDERABLES Ashly l Result [facility] [address], [place] [address], [facility] * Parathyroid Hormone Intact (05/15/2025 [...] differs from PTH assays used in other [facility] laboratories. Marquise Hanley MD LAB - BLOOD ORDERABLES Final Result [facility] LABORATORY [facility] [address] [facility], [address] [place] [address] * (ABNORMAL) Comprehensive metabolic panel (BMP [...] - BLOOD ORDERABLES Ashly rivera Result LABORATORY [facility] [address] [place] [address], [place] [address] * Lipid panel reflex to direct LDL Non-fasting (02/28/2024 10:29 AM CDT) Cholesterol 109 <200 mg/dL 02/28/2024 11:00 AM CDT [facility]ORATORY - CORE LAB Triglycerides 56 <150 mg/dL 02/28/2024 11:00 AM CDT [facility]ORATORY - CORE LAB Direct Measure HDL 67 >=50 mg/dL 2023 11:00 AM CDT [facility] - CORE LAB LDL Cholesterol Calculated 31 <=100 mg/dL 02/28/2024 11:00 AM CDT [facility] - CORE LAB Non HDL Cholesterol 42 <130 mg/dL 02/28/2024 11:00 AM CDT [facility]ORAT[facility] - CORE LAB Patient Fasting > 8hrs? No 02/28/2024 11:00 AM CDT [facility]ORATORY - CORE LAB Blood STRUCTURE OF LEFT UPPER LIMB / Unknown Venipuncture / Unknown 02/28/2024 10:29 AM CDT 02/28/2024 10:29 AM CDT Narrative [facility]OR[facility] - CORE LAB - 02/28/2024 11:00 [...] LAB - BLOOD ORDERABLES Fin al Result [facility]OR[facility] - CORE LAB [facility] [address] [place] [address] 1st [place] [address] * Mammogram - HIM Scan (09/10/2023) Anatomical Region Laterality Modality Other Narrative 09/10/2023 See encounter dated 02/27/24 us Patient Reported IMG MAMMOGRAPHY ORDERABLES Ashly l Result * Albumin Random Urine Quantitative with Creat Ratio (07/14/2023 10:09 AM MULTIPLE CUT OFF SAW OPERATOR) Creatinine Urine mg/dL 10.0 mg/dL 07/14/2023 2:27 PM MULTIPLE CUT OFF SAW OPERATOR [facility] Comment:The reference ranges have not been established in urine creatinine. The results should be integrated into the clinical context for interpretation. Albumin Urine mg/L <12.0 mg/L 2022 2:27 PM MULTIPLE CUT OFF SAW OPERATOR [facility] Comment:The reference ranges have not been established in urine albumin. The results should be integrated into the clinical context for interpretation. Albumin Urine mg/g Cr 07/14/2023 2:27 PM MULTIPLE CUT OFF SAW OPERATOR [facility] Comment: Unable to calculate, urine [...] control, and institution of therapy with an wbrgbdtbmrf-bwbgsjactm-sreefv (VALERIA) inhibitor (if the patient can tolerate it). Urine MID-STREAM URINE SPECIMEN / Unknown Non-blood Collection / Unknown 07/14/2023 10:09 AM MULTIPLE CUT OFF SAW OPERATOR 07/14/2023 10:09 AM MULTIPLE CUT OFF SAW OPERATOR us Rio Jaquez MD LAB - URINE ORDERABLES Fin al Result LABORATORY [facility] Core Lab [address] [facility], [address] [place] [address], [facility] [phone] * CT Chest Abdomen Pelvis w/o Contrast [...] CT CHEST ABDOMEN PELVIS W/O CONTRAST LOCATION: [facility] DATE: 03/17/2023 INDICATION: Partial congenital anomalous pulmonary [...] CT CHEST ABDOMEN PELVIS W/O CONTRAST LOCATION: [facility] DATE: 03/17/2023 INDICATION: Partial congenital anomalous pulmonary [...] and appearance compared to 2021, and is likelybenign. 2. 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 3. Similar appearance of small mediastinal lymph nodes, in a patient witha history of sarcoidosis. Rio Jaquez MD IMG CT ORDERABLES Final [...] component of this testing was completed at [facility] 03/17/2023 8:33 AM CDT [facility] LAB[facility] Brushing CERVIX UTERI STRUCTURE / Unknown Non-blood Collection / Unknown 03/15/2023 10:12 AM CDT 03/15/2023 10:39 AM CDT Rio HARPER - DELMIS AP Final Resu lt [facility] Specialty Lab [address], [address] [place] [address], [place] [phone] * HPV High Risk Types DNA Cervical (03/15/2023 10:12 AM CDT) Other HR HPV Negative Negative 03/18/2023 4:31 PM CDT [facility] HPV16 DNA Negative Negative 03/18/2023 4:31 PM CDT [facility] HPV18 DNA Negative Negative 03/18/2023 4:31 PM CDT [facility] FINAL DIAGNOSIS This patient's sample is negative for HPV DNA. This test was developed and its performance characteristics determined by the [facility], Molecular Diagnostics Laboratory. It has not [...] LAB - BLOOD ORDERABLES Fin al Result [facility] Molecular Diagnostics [address] [facility] [address], [address] [place] [address], [facility] [phone] * UA with Microscopic (02/15/2023 12:21 PM CDT) Color Urine Straw Colorless, Straw, Light Yellow, Yellow 02/15/2023 12:38 PM CDT [facility]ORATORY - CORE LAB Appearance Urine Clear Clear 02/16/20 12:38 PM CDT [facility] - CORE LAB Glucose Urine Negative Negative mg/dL 02/15/2023 12:38 PM CDT [facility] - CORE LAB Bilirubin Urine Negative Negative 12:38 PM CDT [facility] - CORE LAB Ketones Urine Negative Negative mg/dL 02/15/2023 12:38 PM CDT [facility]ORAT[facility] - CORE LAB Specific [place] Urine 1.003 1.003 - 1.035 02/15/2023 12:38 PM CDT [facility]ORAT[facility] - CORE LAB Blood Urine Negative Negative 02/15/2023 12:38 PM CDT [facility] - CORE LAB pH Urine 6.5 5.0 - 7.0 02/15/2023 12:38 PM CDT [facility] - CORE LAB Protein Albumin Urine Negative Negative mg/dL 02/15/2023 12:38 PM CDT [facility] - CORE LAB Urobilinogen Urine Normal Normal, 2.0 mg/dL 02/15/2023 12:38 PM CDT [facility] - CORE LAB Nitrite Urine Negative Negative 02/15/2023 12:38 PM CDT [facility] - CORE LAB Leukocyte Esterase Urine Negative Negative 02/15/2023 12:38 PM CDT [facility] - CORE LAB RBC Urine <1 <=2 /HPF 02/15/2023 12:38 PM CDT [facility] - CORE LAB WBC Urine 0 <=5 /HPF 02/15/2023 12:38 PM CDT [facility] - CORE LAB Urine MID-STREAM URINE SPECIMEN / Unknown Non-blood Collection / Unknown 02/15/2023 12:21 PM CDT 02/15/2023 12:21 PM CDT Hellen Laura Epperson WET PRESS TENDER LAB - URINE ORDERABLES Fi nal Result [facility] - CORE LAB [facility] [place] [facility] [place] [address] [facility] 1st [place] [address] * PHQ-9 DEPRESSION SCREENING ORDER (06/16/2021) PHQ9 SCORE 11 Lalitha Carpio - 06/16/2021 [facility] us Provider Outside OTHER Final Result * Hepatitis C antibody (11/20/2020 9:24 AM CDT) [facility] Hepatitis C Antibody Negative Negative 11/20/2020 1:13 PM CDT [facility] Blood specimen (specimen) (Line) VAD(CVC, PICC) / Unknown 11/20/2020 9:24 AM CDT 11/20/2020 11:21 AM CDT Omar Mejia MD LAB - BLOOD ORDERABLES Final Re sult [facility] [address] [place] [address], [facility] [phone] [address] * COLONOSCOPY (03/02/2019 7:16 AM CDT) [facility] COLONOSCOPY [address] [phone] Endoscopy Department Patient Name: Carol Wright Schecataartur Procedure Date: 03/02/2019 7:16 AM Date of : 1970 Admit Type: Outpatient Age: 48 Room: [facility] Gender: Female Note Status: Finalized Attending MD: [...] Rio Jaquez MD PROCEDURES Final Resu lt RADIOLOGY RESULTS * HIV 1 and 2 [...] from external infection. 10/23/2020 10/21/2020 Insurance MEDICARE [facility] OUT OF STATE MEDICARE [facility] OUT OF STATE MEDICARE BCBS OUT OF STATE * Guarantor: Carol Burrell Account Type Relation to Patient Date of Phone Billing Address Medication Therapy Self 1970 [id number] [address] MEDICARE MEDICARE Advance Directives For more information, please contact: [phone] * Full Code (Latest Code Status on [...] patie nt/ legal decision maker Care Teams Wool Mixer Relationship Specialty Start Date End Date Omar Carmona MD [address] [place] [address] PCP - General Family Medicine 07/14/24 Barry Kilpatrick MD [address] [place] [address] [id number] [place], [place] 338195 Neurology 07/19/14 Michelle Henderson I, RN Nurse Coordinator Neurology 07/19/14 Rio Jaquez MD [address] [place] [address] 4 [place], [place] [id number] Family Practice 10/15/14 Jemima Jaramillo MD [address] [place] [address] 4 [place] [address] patrol officer 11/20/14 Kelley Chin RN [address] 534945 Nurse Coordinator Cardiology 11/04/15 Sydnee Saleem MD [address] [place] [address] 508 [place], [place] 734955 Cardiology 11/04/15 Karlene Moya MD [address] [place] [address] 194145 Ophthalmology 06/24/17 Wilbert Quintero, OD [address] [place] [address] 828945 Optometry 06/24/17 Rod Gauthier, BILLY [address] [place] [address] [phone] Paint Formulator Primary Podiatric Medicine 06/21/18 Jan Mahmood MD 516 [facility] 2A [place] [address] Gastroenterology 11/05/20 Brandt Quintana MD [facility] [place] [address] Resident 11/05/20 Jna Mahmood MD [address] [place] [address] 9[address] Assigned Gastroenterology Provider 12/01/20 Dom Eason MD [address] [place] [address] Internal Medicine 12/02/20 Jaimie Vernon, RN Specialty Director Of Infection Prevention Cardiology 10/28/21 Marquise Hanley MD [address] [place] [address] Endocrinology, Diabetes, and Metabolism 03/05/22 Vlad Ramey MD [address] [place] [address] 6[address]36 Cardiovascular Disease 05/07/22 Joesph Croew MD [address] [place] [address] 43483 Surgery 05/07/22 Michelle Padilla RN Specialty Director Of Infection Prevention Cardiology 07/03/22 Marquise Hanley MD [address] [place] [address] 50980 Assigned Endocrinology Provider 08/15/22 Wagner Oliver MD [address] [place] [address] Critical Care 12/15/22 Joesph Crowe MD [address] [place] [address] 87872 Surgery 03/17/23 Adonay Haq MD [address] [place] [address] 802115 Internal Medicine 06/14/23 Ruth Riddle DPVik, Podiatry/Foot and Ankle Surgery [address] [place], [place] [address] Assigned Musculoskeletal Provider 10/22/23 Jignesh Mathias MD [address] [place] [address] 665595 Gastroenterology 09/25/24 Omar Carmona MD [address] [place] [address] 448935 Assigned PCP 12/29/24 Jason Alvares MD [address] [place] [address] 599025 Assigned Neuroscience Provider 12/29/24 Jignesh Mathias MD [address] [place] [address] 53017 Assigned Surgical Provider 12/29/24 Ayad Lopez, PhD LP 516 [place] [address] Assigned Behavioral Health Provider 02/28/25 Gavi Nieto PA-C 500 [place], [place] 197025 Physician Copra Sampler Dermatology 03/19/25
--- OUTSIDE RECORDS SUMMARY | 2025-06-10 11:36 | XMS_ITS | Encounter Summary ---
Author Organization [place] Address [address] [place] [address] Care Team Providers Care Booster Operator Name Role Phone Rio Jaquez MD Primary Care Provider Barry Kilpatrick MD Unavailable Michelle Henderson RN Unavailable [phone] Rio Jaquez MD Unavailable [phone] Jemima Jaramillo MD Unavailable Unavai Kelley Bautista RN Unavailable [phone] Sydnee Saleem MD Unavailable +[phone] Karlene Moya MD Unavailable [phone] Wilbert Quintero OD Unavailable +[phone] Rod Gauthier DPM Unavailable +[phone] Nallely Hogue RN Unavailable Unavailable Larisa Vargas RN Unavailable Unavailable Francisco Lott MD Unavailable +[phone] Greg Ortega MD Unavailable [phone] Jan Mahmood MD Unavailable +[phone] Brandt Quintana MD Unavailable +[phone] Jan Mahmood MD Unavailable Rio Jaquez MD Unavailable [phone] Dom Eason MD Unavailable Jayla Plaza RN Unavailable Sydnee Saleem MD Unavailable Phan Coello MD Unavailable Unavailable Cristian Barragan MD Unavailable Dom Eason MD Unavailable Jaimie Vernon RN Unavailable Unavailable Ruth Riddle DPM, Podiatry /Foot and Ankle Surgery Unavailable Luis Arrington MD Unavailable Jason Alvares MD Unavailable Mraquise Hanley MD Unavailable [phone] Vlad Ramey MD Unavailable Joesph Crowe MD Unavailable Luis Arrington MD Unavailable Michelle Padilla RN Unavailable Unavaila ble Vlad Ramey MD Unavailable Marquise Hanley MD Unavailable [phone] Dom Eason MD Unavailable Wagner Oliver MD Unavailable Laura Epperson NP Unavailable [phone] Thom Taveras MD Unavailable Joesph Crowe MD Unavailable +[phone] Joesph Crowe MD Unavailable +[phone] Adonay Haq MD Unavailable [phone] Denilson Srinivasan MD Unavailable +[phone] Jason Alvares MD Unavailable Ruth RiddleM, Podiatry /Foot and Ankle Surgery Unavailable Omar Carmona MD Primary Care Provider Jignesh Mathias MD Unavailable Adonay Haq MD Unavailable [phone] Omar Carmona MD Unavailable Jason Alvares MD Unavailable Jignesh Mathias MD Unavailable Ayad Lopez PhD LP Unavailable [phone] Gavi Nieto-C Unavailable +[phone] Encounter Details Date Type Department Care Team (Late st Contact Info) Description 08/05/2021 [facility] Medical Advice [facility] [address] [address] Phan Coello MD Social History [...] Sex Assigned at Female 09/12/2020 12:05 PM SCHOOL PHOTOGRAPH EDITOR Legal Sex Female 3:26 AM SCHOOL PHOTOGRAPH EDITOR Gender Identity Female 09/12/2020 12:05 PM SCHOOL PHOTOGRAPH EDITOR Sexual Orientation Straight 12/19/2021 10 :44 AM CDT Occupation Industry Job Start Date Job End Date on disability for FMS Not on file Not on file Not on file COVID-19 Exposure Response Date Recorded In the last month, have you been in contact with someone who was confirmed or suspected to have Coronavirus / COVID-19? No / Unsure 07/28/2021 12:39 PM SCHOOL PHOTOGRAPH EDITOR documented as of this encounter Plan of Treatment Upcoming Encounters Date Type Department Care Team (Late st Contact Info) Description 06/13/2025 6:00 PM SCHOOL PHOTOGRAPH EDITOR Ancillary Procedure [facility] [address] [phone] Omar Carmona MD [address] [place] [address] 724705 06/14/2025 4:00 PM SCHOOL PHOTOGRAPH EDITOR Office Visit [facility] [address] [address] Omar Carmona MD [address] [place] [address] 363475 06/15/2025 12:45 PM SCHOOL PHOTOGRAPH EDITOR [facility] [address] [place] [phone] Jason Alvares MD 420 [facility] 295 [place], [place] [phone] Chaya Castillo, OTR [facility] 150 [place], [place] 951777 06/19/2025 10:30 AM SCHOOL PHOTOGRAPH EDITOR Virtual Visit [facility] [address] [phone] Omar Carmona MD [address] [place] [address] [phone] Gerson Santos RPH 06/26/2025 11:00 AM SCHOOL PHOTOGRAPH EDITOR Therapy [facility] [address] [place] [address] Jason Alvares MD [address] [place] [address] Chaya Castillo OTR [address] [address] 07/09/2025 12:45 PM SCHOOL PHOTOGRAPH EDITOR Therapy Visit [facility] [address] [phone] Jason Alvares MD [address] [place] [address] Chaya Castillo OTR [address] [address] 07/18/2025 3:00 PM SCHOOL PHOTOGRAPH EDITOR Office Visit [facility] Heart [address] [phone] Adonay Chapman APRN [address] 485[address] 11/05/2025 12:30 PM CDT Lab [facility] Lab [address] [phone] 11/05/2025 1:45 PM CDT Office Visit [facility] Dermatology [address] 3rd [place] [phone] Gavi Nieto PA-C Dermatology [address] [place] [address] 11/20/2025 10:30 AM CDT Virtual Visit [address] [phone] Marquise Hanley MD [address] [place] [address] documented as of this encounter Goals Goal [...] Depression Total Score: 12 021 9:43 AM SCHOOL PHOTOGRAPH EDITOR documented as of this encounter Care Teams Booster Operator Relationship Specialty Start Date End Date Rio Jaquez MD [address] [place] [address] PCP - General Family Practice 12/02/10 07/13/24 Omar Carmona MD [address] [place] [address] 22821 PCP - General Family Medicine 07/14/24 Barry Kilpatrick MD [address] [place] [address] [id number] [place] [address] Neurology 07/19/14 Michelle Henderson I, RN Nurse Coordinator Neurology 07/19/14 Rio Jaquez MD [address] [place] [address] 57044 Family Practice 10/15/14 Jemima Jaramillo MD grease refiner operator 11/20/14 Kelley Chin, TANIA [facility] [address] [place] [place], [place] [address] Nurse Coordinator Cardiology 11/04/15 Sydnee Saleem MD [address] [place] [address] 508 [place] [address] Cardiology 11/04/15 Karlene Moya MD [address] [place] [address] Ophthalmology 06/24/17 Wilbert Quintero, OD [address] [place] [address] 27[address] Optometry 06/24/17 Rod Gauthier DPM [address] [place], [place] [address] Ems Director Primary Podiatric Medicine 06/21/18 Nallely Hogue, TANIA Registered Nurse 02/20/19 11/23/22 Larisa Vargas, TANIA Specialty Ship Pilot Cardiology 04/18/19 03/06/22 Francisco Lott MD [address] [place] [address] 88 [place] [address] Assigned Rheumatology Provider 05/31/20 12/13/21 Greg Ortega MD [address] [place] [address] 10769 Assigned Surgical Provider 06/23/20 12/06/21 Jan Mahmood MD [address] [place] [address] 2A [place], [place] 170125 Gastroenterology 11/05/20 Brandt Quintana MD 1414 [place] [address] Resident 11/05/20 Jan Mahmood MD 516 [facility] 2A [place] [address] Assigned Gastroenterology Provider 12/01/20 Rio Jaquez MD 909 [facility] [place] 4 [place], [place] 699795 Assigned PCP 11/17/20 09/30/24 Dom Eason MD [address] [place] [address] 353 [place] [address] Internal Medicine 12/02/20 Jayla Plaza, RN Specialty Ship Pilot Hepatology 01/09/21 02/13/24 Sydnee Saleem MD [address] [address] Assigned Heart and Vascular Provider 02/02/21 07/24/22 Phan Coello MD Assigned Neuroscience Provider 02/21/21 11/22/21 [place] [address] [place] [address] Assigned Infectious Disease Provider 02/21/21 03/06/22 Dom Eason MD [address] [place] [address] 353 [place] [address] Assigned Nephrology Provider 04/20/21 01/02/22 Jaimie Vernon, RN Specialty Ship Pilot Cardiology 10/28/21 Ruth Riddle DPM, Podiatry/Foot and Ankle Surgery [address] [place] [address] Assigned Musculoskeletal Provider 11/30/21 09/30/23 Luis Arrington MD [address] [place] [address] 8[address] Assigned Neuroscience Provider 11/23/21 01/02/22 Jason Alvares MD [address] [place] [address] 82533 Assigned Neuroscience Provider 01/03/22 05/15/22 Marquise Hanley MD [address] [place] [address] 628[address] Endocrinology, Diabetes, and Metabolism 03/05/22 Vlad Ramey MD [address] [place] [address] 19600 Cardiovascular Disease 05/07/22 Joesph Crowe MD [address] [place] [address] 24338 Surgery 05/07/22 Luis Arrington MD [address] [place] [address] 34682 Assigned Neuroscience Provider 05/16/22 05/14/23 Michelle Padilla RN Specialty Ship Pilot Cardiology 07/03/22 Vlad Ramey MD 909 [place] [address] Assigned Heart and Vascular Provider 07/25/22 05/28/23 Marquise Hanley MD 909 [place] [address] Assigned Endocrinology Provider 08/15/22 Dom Eason MD 717 [facility] 353 [place] [address] Assigned Nephrology Provider 11/28/22 02/19/23 Wagner Oliver MD [address] [place] [address] Critical Care 12/15/22 Laura Epperson NP 7 [facility] [address] [place] [address] Assigned Nephrology Provider 02/20/23 08/30/24 Thom Taveras MD [address], [address] [place] [address] Assigned Cancer Care Provider 02/06/23 08/20/23 Joesph Crowe MD [address] [place] [address] 44572 Surgery 03/17/23 Joesph Crowe MD [address] [place] [address] 45610 Assigned Surgical Provider 04/03/23 09/30/24 Adonay Haq MD 909 [place] [address] Internal Medicine 06/14/23 Denilson Srinivasan MD [address] [place] [address] Assigned Heart and Vascular Provider 05/29/23 11/28/24 Jason Alvares MD [address] 498285 Assigned Neuroscience Provider 05/15/23 11/28/24 Ruth Riddle DPM, Podiatry/Foot and Ankle Surgery [address] [place] [address] Assigned Musculoskeletal Provider 10/22/23 Jignesh Mathias MD [address] [place] [address] 683235 Gastroenterology 09/25/24 Adonay Haq MD [address] [place] [address] 34953 Assigned PCP 10/01/24 12/28/24 Omar Carmona MD [address] [place] [address] 41163 Assigned PCP 12/29/24 Jason Alvares MD [address] [phone] Assigned Neuroscience Provider 12/29/24 Jignesh Mathias MD [address] [place] [address] 657905 Assigned Surgical Provider 12/29/24 Ayad Lopez, PhD LP [address] [place] [address] 045355 Assigned Behavioral Health Provider 02/28/25 Gavi Nieto PA-C [address] [place] [address] [phone] Physician Barrel Endshaker Adjuster Dermatology 03/19/25 documented as of this encounter
--- OUTSIDE RECORDS SUMMARY | 2025-06-10 11:36 | XMS_ITS | Encounter Summary ---
Author Organization [place] Address [address] [place] [address] Care Team Providers Care Biodiesel Technology Manager Name Role Phone Rio Jaquez MD Primary Care Provider Barry Kilpatrick MD Unavailable Michelle Henderson I RN Unavailable [phone] Rio Jaquez MD Unavailable + [phone] Jemima Jaramillo MD Unavailable Unavai Kelley Bautista RN Unavailable [phone] Sydnee Saleem MD Unavailable [phone] Karlene Moya MD Unavailable [phone] Wilbert Quintero OD Unavailable +[phone] Rod Gauthier DPM Unavailable [phone] Jan Mahmood MD Unavailable [phone] Brandt Quintana MD Unavailable [phone] Jan Mahmood MD Unavailable +[phone] Rio Jaquez MD Unavailable +[phone] Dom Eason MD Unavailable + [phone] Puposky, Jaimie RN Unavailable Unavailable Marquise Hanley MD Unavailable +[phone] Vlad Ramey MD Unavailable +[phone] Joesph Crowe MD Unavailable + [phone] Michelle Padilla RN Unavailable Unavaila ble Marquise Hanley MD Unavailable +[phone] Wagner Oliver MD Unavailable [phone] Laura Epperson NP Unavailable +[phone] Joesph Crowe MD Unavailable [phone] Joesph Crowe MD Unavailable + [phone] Adonay Haq MD Unavailable [phone] Denilson Srinivasan MD Unavailable + [phone] Jason Alvares MD Unavailable Ruth Riddle DPM, Podiatry /Foot and Ankle Surgery Unavailable Omar Carmona MD Primary Care Provider [phone] Jignesh Mathias MD Unavailable Adonay Haq MD Unavailable [phone] Omar Carmona MD Unavailable +[phone] Jason Alvares MD Unavailable Jignesh Mathias MD Unavailable Ayad Lopez PhD LP Unavailable [phone] Gavi Nieto PA-C Unavailable [phone] Encounter Details Date Type Department Care Team (Late st Contact Info) Description 04/07/2024 [facility] Preoperative Assessment [address] 5th [place] [address] Mickie Mora, RN Social History [...] 2 02/28/2024 [facility] - Occupational Stress Questionnaire Answer Date [...] Assigned at Female 09/12/2020 12:05 PM CREDIT PROFESSIONAL Legal Sex Female 3:26 AM CREDIT PROFESSIONAL Gender Identity Female 09/12/2020 12:05 PM CREDIT PROFESSIONAL Sexual Orientation Straight 12/19/2021 10 :44 [...] Contact Info) Description 06/13/2025 6:00 PM CREDIT PROFESSIONAL Ancillary Procedure [facility] [address] [address] Omar Carmona MD [address] [place] [address] 06/14/2025 4:00 PM CREDIT PROFESSIONAL Office Visit [facility] Primary Care [address] [phone] Omar Carmona MD [address] [place] [address] 537[address] 06/15/2025 12:45 PM CREDIT PROFESSIONAL Therapy Visit [facility] 150 [place] [phone] Jason Alvares MD [address] [place] [address] 295 [place], [place] 859715 Chaya Castillo OTR [facility] 150 [place], [place] 607397 06/19/2025 10:30 AM CREDIT PROFESSIONAL Virtual Visit [facility] Primary Care [address] [phone] Omar Carmona MD [address] [place] [address] 426495 Gerson Santos [facility] 06/26/2025 11:00 AM CREDIT PROFESSIONAL Therapy Visit [facility] 150 [place] [phone] Jason Alvares MD [address] [place] [address] 295 [place], [place] 635425 [facility] 150 [place] [address] 07/09/2025 12:45 PM CREDIT PROFESSIONAL Therapy Visit [facility] 150 [place] [phone] Jason Alvares MD 420 [facility] 295 [place] [address] Chaya Castillo, LETA [address] [address] 07/18/2025 3:00 PM CREDIT PROFESSIONAL Office Visit [facility] Heart [address] [phone] Adonay Chapman APRN [facility] 500 [place] [address] 11/05/2025 12:30 PM CDT Lab [facility] Lab [address] 1st [place] [phone] 11/05/2025 1:45 PM CDT Office Visit [facility] Dermatology [address] 3rd [place] [phone] Gavi Nieto PA-C Dermatology [address] [place] [address] [phone] 11/20/2025 10:30 AM CDT Virtual Visit [address] [address] Marquise Hanley MD [address] [place] [address] 80502 documented as of this encounter Goals Goal [...] documented as of this encounter Care Teams Biodiesel Technology Manager Relationship Specialty Start Date End Date Rio Jaquez MD [address] [place] [address] 4 [place] [address] PCP - General Family Practice 12/02/10 07/13/24 Omar Carmona MD [address] [place] [address] 44207 PCP - General Family Medicine 07/14/24 Barry Kilpatrick MD [address] [place] [address] [id number] [place] [address] Neurology 07/19/14 Michelle Henderson I, TANIA Nurse Coordinator Neurology 07/19/14 Rio Jaquez MD [address] [place] [address] 76795 Family Practice 10/15/14 Jemima Jaramillo MD public speaking teacher 11/20/14 Kelley Chin, TANIA [address] [address] Nurse Coordinator Cardiology 11/04/15 Sydnee Saleem MD [address] [place] [address] 508 [place], [place] 488635 Cardiology 11/04/15 Karlene Moya MD [address] [place] [address] [phone] Ophthalmology 06/24/17 Wilbert Quintero OD 909 [place] [address] Optometry 06/24/17 Rod Gauthier DPM 9 [place] [address] Thread Pulling Machine Attendant Primary Podiatric Medicine 06/21/18 Jan Mahmood MD 6 [facility] 2A [place], [place] 948795 Gastroenterology 11/05/20 [place] [address] [place] [address] Resident 11/05/20 Jan Mahmood MD 6 [facility] 2A [place] [address] Assigned Gastroenterology Provider 12/01/20 Rio Jaquez MD 9 [facility] 4 [place] [address] Assigned PCP 11/17/20 09/30/24 Dom Eason MD 7 [facility] 353 [place] [address] Internal Medicine 12/02/20 Jaimie Vernon, RN Specialty Manufacturing Industrial Engineer Cardiology 10/28/21 Marquise Hanley MD [address] [place] [address] [phone] Endocrinology, Diabetes, and Metabolism 03/05/22 Vlad Ramey MD [address] [place] [address] 83301 Cardiovascular Disease 05/07/22 Joesph Crowe MD [address] [place] [address] 65680 Surgery 05/07/22 Michelle Padilla, RN Specialty Manufacturing Industrial Engineer Cardiology 07/03/22 Marquise Hanley MD [address] [place] [address] 45[address] Assigned Endocrinology Provider 08/15/22 Wagner Oliver MD [address] [place] [address] Critical Care 12/15/22 Laura Epperson NP [address] [place], [place] [address] [place] [address] Assigned Nephrology Provider 02/20/23 08/30/24 Joesph Crowe MD [address] [place] [address] 14311 Surgery 03/17/23 Joesph Crowe MD [address] [place] [address] 74552 Assigned Surgical Provider 04/03/23 09/30/24 Adonay Haq MD [address] [place] [address] 17794 Internal Medicine 06/14/23October, Denilson Jackson MD [address] [place] [address] Assigned Heart and Vascular Provider 05/29/23 11/28/24 Jason Alvares MD 420 [facility] 295 [place] [address] Assigned Neuroscience Provider 05/15/23 11/28/24 Ruth Riddle DPM, Podiatry/Foot and Ankle Surgery [address] [place] [address] Assigned Musculoskeletal Provider 10/22/23 Jignesh Mathias MD [address] [place] [address] 836[address] Gastroenterology 09/25/24 Adonay Haq MD [address] [place] [address] [phone] Assigned PCP 10/01/24 12/28/24 Omar Carmona MD [address] [place] [address] 11409 Assigned PCP 12/29/24 Jason Alvares MD [address] [place] [address] 38028 Assigned Neuroscience Provider 12/29/24 Jignesh Mathias MD [address] [place] [address] 82267 Assigned Surgical Provider 12/29/24 Ayad Lopez, PhD LP [address] [place] [address] [id number] Assigned Behavioral Health Provider 02/28/25 Gavi Nieto PA-C [address] [place] [address] 913025 Physician Shoe Caser Dermatology 03/19/25 documented as of this encounter
--- OUTSIDE RECORDS SUMMARY | 2025-06-10 11:36 | XMS_ITS | Encounter Summary ---
Author Organization [facility] Address [address] [place] [address] 15093 Care Team Providers Care Refund Clerk Name Role Phone Rio Jaquez MD Primary Care Provider Barry Kilpatrick MD Unavailable Michelle Henderson RN Unavailable [phone] Cathie Lucero NP Unavailable [phone] Rio Jaquez MD Unavailable +[phone] Jemima Jaramillo MD Unavailable Unavai Rudolph Padilla MD Unavailable Kelley Chin RN Unavailable Sydnee Saleem MD Unavailable +[phone] [facility] MD Unavailable +[phone] Alexandria Nelson RN Unavailable +[phone] Karlene Moya MD Unavailable +[phone] Wilbert Quintero OD Unavailable +[phone] Rod Gauthier DPM Unavailable Kerrie Verdin PA-C Unavailable +[phone] Nallely Hogue RN Unavailable Unavailable Larisa [...] +[phone] Joesph Crowe MD Unavailable +[phone] Luis Arrington MD Unavailable Michelle Padilla RN Unavailable Unavaila ble Vlad Ramey MD Unavailable +[phone] Marquise Hanley MD Unavailable +[phone] Dom Eason MD Unavailable +[phone] Wagner Oliver MD Unavailable +[phone] Laura Epperson NP Unavailable +[phone] Thom Taveras MD Unavailable +[phone] Joesph Crowe MD Unavailable + [phone] Joesph Crowe MD Unavailable + [phone] Adonay Haq MD Unavailable +[phone] OctoberDenilson MD Unavailable + [phone] Jason Alvraes MD Unavailable Ruth Riddle DPM, Podiatry /Foot and Ankle Surgery Unavailable Omar Carmona MD Primary Care Provider [phone] Jignesh Mathias MD Unavailable Adonay Haq MD Unavailable [phone] Omar Carmona MD Unavailable +[phone] Jason Alvares MD Unavailable Jignesh Mathias MD Unavailable Ayad Lopez PhD LP Unavailable +[phone] Gavi Nieto PA-C Unavailable +[phone] Encounter Details Date Type Department Care Team (Late st Contact Info) Description 07/26/2014 MyC Medical Advice Neurology Clinic [facility] 1st Floor, Clinic 1A 6 [place] [address] Barry Kilpatrick MD [address] [place] [address] [id number] [place], [place] [phone] Social History Tobacco Use Types Packs/Day Years Used Date Smoking Tobacco: Every Day Cigarettes 1 28 Smokeless Tobacco: Never Alcohol Use Standard Drinks/Week Comments Yes 4.2 (1 standard drink = 0.6 oz p ure alcohol) occ Comments No Sex and Gender Information Value Date Recorded Sex Assigned at Female 09/12/2020 12:05 PM DRYING SUPERVISOR Legal Sex Female 3:26 AM DRYING SUPERVISOR Gender Identity Female 09/12/2020 12:05 PM DRYING SUPERVISOR Sexual Orientation Straight 12/19/2021 10 :44 AM CDT Occupation Industry Job Start Date Job End Date on disability for FMS Not on file Not on file Not on file documented as of this encounter Plan of Treatment Upcoming Encounters Date Type Department Care Team (Late st Contact Info) Description 06/13/2025 6:00 PM DRYING SUPERVISOR Ancillary Procedure [facility] Imaging Center CT Clinic [address] 1st [place] [phone] Omar Carmona MD [address] [place] [address] [id number] 06/14/2025 4:00 PM DRYING SUPERVISOR Office Visit [facility] Primary Care Clinic [address] 4th [place] [phone] Omar Carmona MD [address] [place] [address] [phone] 06/15/2025 12:45 PM DRYING SUPERVISOR Therapy Visit [facility] Rehabilitation Services [address] [address] Jason Alvares MD [address] [place] [address] 295 [place], [place] 297015 Chaya Castillo OTR [facility] 150 [place] [address] 06/19/2025 10:30 AM DRYING SUPERVISOR Virtual Visit [facility] Primary Care Clinic [address] [place] [address] 4th [place] [phone] Omar Carmona MD [address] [place] [address] [phone] Gerson Santos [facility] 06/26/2025 11:00 AM DRYING SUPERVISOR Therapy Visit [facility] 150 [place] [phone] Jason Alvares MD [address] [place] [address] Chaya Castillo OTR [facility] 150 [place] [address] 07/09/2025 12:45 PM DRYING SUPERVISOR Therapy Visit [facility] 150 [place] [phone] Jason Alvares MD [address] [place] [address] Chaya Castillo OTR [facility] 150 [place] [address] 07/18/2025 3:00 PM DRYING SUPERVISOR Office Visit [facility] Heart Clinic [address] [phone] Adonay Chapman APRN [address] 736635 11/05/2025 12:30 PM CDT Lab [facility] Lab [address] [phone] 11/05/2025 1:45 PM CDT Office Visit [facility] Dermatology Clinic [place] [address] [facility] 3rd [place] [phone] Gavi Nieto PA-C Dermatology [address] [place] [address] 11/20/2025 10:30 AM CDT Virtual Visit [address] [place] [phone] Marquise Hanley MD [address] [place] [address] 558505 documented as of this encounter Goals Goal [...] documented as of this encounter Care Teams Refund Clerk Relationship Specialty Start Date End Date Rio Jaquez MD [address] [place] [address] 4 [place] [address] PCP - General Family Practice 12/02/10 07/13/24 Omar Carmona MD [address] [place] [address] PCP - General Family Medicine 07/14/24 Barry Kilpatrick MD [address] [place] [address] [id number] [place] [address] Neurology 07/19/14 Michelle Henderson I, RN Nurse Coordinator Neurology 07/19/14 Cathie Lucero NP 500 [place] [address] Clinic All Source Analyst Cardiology 07/19/14 Rio Jaquez MD 909 [facility] 4 [place] [address] Family Practice 10/15/14 Jemima Jaramillo MD 500 [place] [address] java web application developer 11/20/14 Rudolph Leal MD [address] [place] [address] 191205 Student in organized health care education/training program 11/27/14 07/04/18 Kelley Chin RN [facility] 909 [place], [place] 418055 Nurse Coordinator Cardiology 11/04/15 Sydnee Saleem MD 420 [facility] 508 [place], [place] 018495 Cardiology 11/04/15 Eduin Fraga MD 420 [facility] 480 [place], [place] 092675 Hematology 09/17/16 02/25/17 Alexandria Nelson, TANIA Nurse Coordinator Hematology & Oncology 09/17/16 02/25/17 Karlene Moya MD [address] [place] [address] Ophthalmology 06/24/17 Wilbert Quintero OD [address] [place] [address] [phone] Optometry 06/24/17 Rod Gauthier DPM [address] [place] [address] 454265 Personal Injury Law Specialist Primary Podiatric Medicine 06/21/18 Kerrie Verdin PA-C [address] [place] [address] [phone] Physician Beauty Operator Apprentice Physician Beauty Operator Apprentice 06/21/1808/07 Nallely Hogue, RN Registered Nurse 02/20/19 11/23/22 Larisa Vargas, TANIA Specialty All Source Analyst Cardiology 04/18/19 03/06/22 Rio Jaquez MD [address] [place] [address] [phone] Assigned PCP 12/28/19 11/16/20 Ruth Yarbrough MD [address] [place] [address] [phone] Assigned Endocrinology Provider 05/31/20 09/28/20 Francisco Lott MD [address] [place] [address] [phone] Assigned Rheumatology Provider 05/31/20 12/13/21 Frida Grace MD [address] [place] [address] [address] [place] [address] Assigned Pediatric Specialist Provider 05/31/20 09/08/20 Sydnee Saleem MD 6550 [facility] [address] [place] [address] [phone] Assigned Heart and Vascular Provider 05/31/20 10/22/20 Greg Ortega MD 9 [place] [address] Assigned Surgical Provider 06/23/20 12/06/21 Frida Grace MD [facility] [place] [address] [place] [address] Assigned Surgical Provider 05/31/20 06/22/20 aJn Mahmood MD [address] [address] Gastroenterology 11/05/20 Brandt Quintana MD [address] [place] [address] [phone] Resident 11/05/20 Jan Mahmood MD [address] [place] [address] Assigned Gastroenterology Provider 12/01/20 Rio Jaquez MD [address] 222885 Assigned PCP 11/17/20 09/30/24 Dom Eason MD 717 [facility] 353 [place] [address] Internal Medicine 12/02/20 Jayla Plaza, RN Specialty All Source Analyst Hepatology 01/09/21 02/13/24 Jayla Plaza, RN Specialty All Source Analyst Hepatology 01/10/21 01/10/21 Sydnee Saleem MD 6550 [facility] [address] [place] [address] Assigned Heart and Vascular Provider 02/02/21 07/24/22 Phan Coello MD Assigned Neuroscience Provider 02/21/21 11/22/21 Cristian Barragan MD 2945 [place], [place] [phone] Assigned Infectious Disease Provider 02/21/21 03/06/22 Dom Eason MD [address] [place] [address] 353 [place], [place] 550964 Assigned Nephrology Provider 04/20/21 01/02/22 Jaimie Vernon, TANIA Specialty All Source Analyst Cardiology 10/28/21 Ruth Riddle, DPM, Podiatry/Foot and Ankle Surgery 8[address]37 [place] [facility] 300 [place], [place] [phone] Assigned Musculoskeletal Provider 11/30/21 09/30/23 Luis Arrington MD 909 [place], [place] 007265 Assigned Neuroscience Provider 11/23/21 01/02/22 Jason Alvares MD 420 [facility] 295 [place] [address] Assigned Neuroscience Provider 01/03/22 05/15/22 Marquise Hanley MD [address] [place] [address] Endocrinology, Diabetes, and Metabolism 03/05/22 Vlad Ramey MD [address] [place] [address] 42842 Cardiovascular Disease 05/07/22 Joesph Crowe MD [address] [place] [address] Surgery 05/07/22 Luis Arrington MD [address] [place] [address] 41396 Assigned Neuroscience Provider 05/16/22 05/14/23 Michelle Padilla RN Specialty All Source Analyst Cardiology 07/03/22 Vlad Ramey MD [address] [place] [address]23 Assigned Heart and Vascular Provider 07/25/22 05/28/23 Marquise Hanley MD [address] [place] [address] 15922 Assigned Endocrinology Provider 08/15/22 Dom Eason MD [address] [place] [address] Assigned Nephrology Provider 11/28/22 02/19/23 Wagner Oliver MD [address] [place] [address] Critical Care 12/15/22 Laura Epperson NP 717 [facility] 1932 [place] [address] Assigned Nephrology Provider 02/20/23 08/30/24 Thom Taveras MD [address] [place] [address] Assigned Cancer Care Provider 02/06/23 08/20/23 Joesph Crowe MD [address] [place] [address] Surgery 03/17/23 Joesph Crowe MD [address]09 [place] [address] Assigned Surgical Provider 04/03/23 09/30/24 Adonay Haq MD 909 [place] [address] Internal Medicine 06/14/23OctoberDenilson MD [address] [facility] [address] [place] [address] Assigned Heart and Vascular Provider 05/29/23 11/28/24 Jason Alvares MD 420 [facility] 295 [place] [address] Assigned Neuroscience Provider 05/15/23 11/28/24 Ruth Riddle, DPM, Podiatry/Foot and Ankle Surgery [address] [place] [address] [address] Assigned Musculoskeletal Provider 10/22/23 Jignesh Mathias MD [address] [place] [address] 26861 Gastroenterology 09/25/24 Adonay Haq MD [address] [place] [address] 317025 Assigned PCP 10/01/24 12/28/24 Omar Carmona MD [address] [place] [address] [phone] Assigned PCP 12/29/24 Jason Alvares MD [address] [place] [address] 449335 Assigned Neuroscience Provider 12/29/24 Jignesh Mathias MD [address] [place] [address] 71732 Assigned Surgical Provider 12/29/24 Ayad Lopez, PhD LP [address] [place] [address] 18976 Assigned Behavioral Health Provider 02/28/25 Gavi Nieto PA-C [address] [place] [address] Physician Beauty Operator Apprentice Dermatology 03/19/25 documented as of this encounter
--- OUTSIDE RECORDS SUMMARY | 2025-06-10 11:36 | XMS_ITS | Encounter Summary ---
Author Organization [facility] Address [address] [place] [address] Care Team Providers Care Cooky Packer Name Role Phone Rio Jaquez MD Primary Care Provider Barry Kilpatrick MD Unavailable Michelle Henderson I RN Unavailable [phone] Rio Jaquez MD Unavailable +[phone] Jemima Jaramillo MD Unavailable Unavai Kelley Bautista RN Unavailable [phone] Sydnee Saleem MD Unavailable +[phone] Karlene Moya MD Unavailable +[phone] Wilbert Quintero OD Unavailable +[phone] Rod Gauthier DPM Unavailable +[phone] Jan Mahmood MD Unavailable [phone] Brandt Quintana MD Unavailable Jan Mahmood MD Unavailable +[phone] Rio Jaquez MD Unavailable +[phone] Dom Eason MD Unavailable + [phone] Othello, Jaimie RN Unavailable Unavailable Marquise Hanley MD Unavailable +[phone] Vlad Ramey MD Unavailable +[phone] Joesph Crowe MD Unavailable + [phone] Michelle Padilla RN Unavailable Unavaila ble Marquise Hanley MD Unavailable +[phone] Wagner Oliver MD Unavailable +[phone] Laura Epperson NP Unavailable [phone] Joesph Crowe MD Unavailable +[phone] Joesph Crowe MD Unavailable + [phone] Adonay Haq MD Unavailable [phone] Denilson Srinivasan MD Unavailable + [phone] Jason Alvares MD Unavailable Ruth RiddleM, Podiatry /Foot and Ankle Surgery Unavailable Omar Carmona MD Primary Care Provider [phone] Jignesh aMthias MD Unavailable Adonay Haq MD Unavailable [phone] Omar Carmona MD Unavailable [phone] Jason Alvares MD Unavailable Jignesh Mathias MD Unavailable Ayad Lopez PhD LP Unavailable +[phone] Gavi Nieto PA-C Unavailable [phone] Encounter Details Date Type Department Care Team (Late st Contact Info) Description 06/13/2024 [facility] [address] 4th [place] [address] Rio Jaquez MD [address] [place] [address] 4 [place] [address] Social History Tobacco Use Types Packs/Day Years [...] any clubs o r organizations such as buddhism groups, unions, fraternal or athletic groups, or [...] Answer Date Recorded PHQ-2 Score 2 02/28/2024 [facility] - Occupational [...] Sex Assigned at Female 09/12/2020 12:05 PM DONOR RECRUITER Legal Sex Female 3:26 AM DONOR RECRUITER Gender Identity Female 09/12/2020 12:05 PM DONOR RECRUITER Sexual Orientation Straight 12/19/2021 10 :44 AM CDT Occupation Industry Job Start Date Job End Date on disability for FMS Not on file Not on file Not on file disabled Not on file Not on file Not on file documented as of this encounter Plan of Treatment Upcoming Encounters Date Type Department Care Team (Late st Contact Info) Description 06/13/2025 6:00 PM DONOR RECRUITER Ancillary Procedure [facility] CT Clinic [address] 1st [place] [address] Omar Carmona MD [address] [place] [address] 06/14/2025 4:00 PM DONOR RECRUITER Office Visit [facility] Primary Care [address] [phone] Omar Carmona MD [address] [place] [address] 545575 06/15/2025 12:45 PM DONOR RECRUITER Therapy Visit [facility] [place] [phone] Jason Alvares MD [address] [place] [address] Chaya Castillo OTR [facility] 150 [place], [place] [address]337 06/19/2025 10:30 AM DONOR RECRUITER Virtual Visit [facility] Care [address] [phone] Omar Carmona MD [address] [place] [address] Gerson Santos, [facility] 06/26/2025 11:00 AM DONOR RECRUITER Therapy Visit [facility] [place] [address] [place] [phone] Jason Alvares MD [address] [place] [address] 345455 Chaya Castillo, OTR [facility] 150 [facility] [address] 07/09/2025 12:45 PM DONOR RECRUITER Therapy Visit [facility] [place] 150 [place] [address] Jason Alvares MD 420 [facility] 295 [place] [address] Chaya Castillo, OTR [facility] 150 [place] [address] 07/18/2025 3:00 PM DONOR RECRUITER Office Visit [facility] Heart [address] [phone] Adonay Chapman APRN [facility] [address] [place], [place] 471455 11/05/2025 12:30 PM CDT Lab [facility] Lab [address] [place] [phone] 11/05/2025 1:45 PM CDT Office Visit [facility] Dermatology [address] [phone] Gavi Nieto PA-C Dermatology [address] [place] [address] 11/20/2025 10:30 AM CDT Virtual Visit [address] [phone] Marquise Hanley MD [address] [place] [address]87 documented as of this encounter Goals Goal [...] documented as of this encounter Care Teams Cooky Packer Relationship Specialty Start Date End Date Rio Jaquez MD [address] [place] [address] 4 [place] [address] PCP - General Family Practice 12/02/10 07/13/24 Omar Carmona MD [address] [place] [address] [phone] PCP - General Family Medicine 07/14/24 Barry Kilpatrick MD [address] [place] [address] AP0083BR [place], [place] 272345 Neurology 07/19/14 Michelle Henderson I, RN Nurse Coordinator Neurology 07/19/14 Rio Jaquez MD [address] [place] [address] 044745 Family Practice 10/15/14 Jemima Jaramillo MD director of optimization 11/20/14 Kelley Chin, TANIA [facility] [address] [place] [address] 118415 Nurse Coordinator Cardiology 11/04/15 Sydnee Saleem MD [address] [place] [address] 508 [place], [place] 710905 Cardiology 11/04/15 Karlene Moya MD [address] [place] [address] 428246 Ophthalmology 06/24/17 Wilbert Quintero OD 9 [place] [address] Optometry 06/24/17 Rod Gauthier DPM [address] [place] [address] 28005 Journeyman Welder Primary Podiatric Medicine 06/21/18 Jan Mahmood MD [address] [place] [address] 42277 Gastroenterology 11/05/20 Brandt Quintana MD [address] [place] [address] Resident 11/05/20 Jan Mahmood MD [address] [place] [address] 95[address] Assigned Gastroenterology Provider 12/01/20 Rio Jaquez MD [address] [place] [address] 194795 Assigned PCP 11/17/20 09/30/24 Dom Eason MD [address] 069004 Internal Medicine 12/02/20 Jaimie Vernon, RN Specialty Energy Advisor Cardiology 10/28/21 Marquise Hanley MD [address] [place] [address] 70361 Endocrinology, Diabetes, and Metabolism 03/05/22 Vlad Ramey MD [address] [place] [address] 13774 Cardiovascular Disease 05/07/22 Joesph Crowe MD [address] [place] [address] 72446 Surgery 05/07/22 Michelle Padilla, RN Specialty Energy Advisor Cardiology 07/03/22 Marquise Hanley MD [address] [place] [address] 07036 Assigned Endocrinology Provider 08/15/22 Wagner Oliver MD [address] [place] [address] Critical Care 12/15/22 Laura Epperson NP [address] [place] [address] 1932 [place] [address] Assigned Nephrology Provider 02/20/23 08/30/24 Joesph Crowe MD [address] [place] [address] 18907 Surgery 03/17/23 Joesph Crowe MD [address] [place] [address] 32327 Assigned Surgical Provider 04/03/23 09/30/24 Adonay Haq MD 909 [place] [address] Internal Medicine 06/14/23OctoberDenilson MD [address] [facility] W200 [place] [address] Assigned Heart and Vascular Provider 05/29/23 11/28/24 Jason Alvares MD [address] [place] [address] 50918 Assigned Neuroscience Provider 05/15/23 11/28/24 Ruth Riddle DPM, Podiatry/Foot and Ankle Surgery [address] [place], [place] 197157 Assigned Musculoskeletal Provider 10/22/23 Jignesh Mathias MD [address] [place] [address] [phone] Gastroenterology 09/25/24 Adonay Haq MD [address] [place] [address] 64654 Assigned PCP 10/01/24 12/28/24 Omar Carmona MD [address] [place] [address] 36342 Assigned PCP 12/29/24 Jason Alvares MD [address] [place] [address] 82866 Assigned Neuroscience Provider 12/29/24 Jignesh Mathias MD [address] [place] [address] 23555 Assigned Surgical Provider 12/29/24 Ayad Lopez, PhD [address] [place] [address]109 Assigned Behavioral Health Provider 02/28/25 Gavi Nieto PANavinC [address] [place] [address] [phone] Physician Picking Crew Supervisor Dermatology 03/19/25 documented as of this encounter
--- OUTSIDE RECORDS SUMMARY | 2025-06-10 11:36 | XMS_ITS | Encounter Summary ---
Author Organization [facility] Address [address] [place] [address] Care Team Providers Care Hat Blocking Operator Name Role Phone Rio aJquez MD Primary Care Provider Barry Kilpatrick MD Unavailable Michelle Henderson I RN Unavailable [phone] Rio Jaquez MD Unavailable +[phone] Jemima Jaramillo MD Unavailable Unavai Kelley Bautista RN Unavailable +[phone] Sydnee Saleem MD Unavailable +[phone] Karlene Moya MD Unavailable +[phone] Wilbert Quintero OD Unavailable +[phone] Rod Gauthier DPM Unavailable +[phone] Jan Mahmood MD Unavailable +[phone] Brandt Quintana MD Unavailable Jan Mahmood MD Unavailable +[phone] Rio Jaquez MD Unavailable +[phone] Dom Eason MD Unavailable + [phone] [place], Jaimie RN Unavailable Unavailable Marquise Hanley MD Unavailable +[phone] Vlad Ramey MD Unavailable +[phone] Joseph Crowe MD Unavailable + [phone] Michelle Padilla RN Unavailable Unavaila ble Marquise Hanely MD Unavailable +-[phone] Wagner Oliver MD Unavailable +[phone] Laura Epperson NP Unavailable +[phone] Joesph Crowe MD Unavailable +[phone] Joesph Crowe MD Unavailable + [phone] Adonay Haq MD Unavailable +[phone] Denilson Srinivasan MD Unavailable + [phone] Jason Alvares MD Unavailable Ruth Riddle DPM, Podiatry /Foot and Ankle Surgery Unavailable Omar Carmona MD Primary Care Provider [phone] Jignesh Mathias MD Unavailable Adonay Haq MD Unavailable [phone] Omar Carmona MD Unavailable +[phone] Jason Alvares MD Unavailable Jignesh Mathias MD Unavailable Ayad Lopez PhD LP Unavailable +[phone] Gavi Nieto PA-C Unavailable +[phone] Encounter Details Date Type Department Care Team (Late st Contact Info) Description 03/30/2024 [facility] Preoperative Assessment [address] 5th [place] [address] Mickie Mora, RN Social History [...] Answer Date Recorded PHQ-2 Score 2 02/28/2024 [facility] Health - Occupational Stress Questionnaire Answer Date [...] Sex Assigned at Female 09/12/2020 12:05 PM OSTRICH FARM WORKER Legal Sex Female 3:26 AM OSTRICH FARM WORKER Gender Identity Female 09/12/2020 12:05 PM OSTRICH FARM WORKER Sexual Orientation Straight 12/19/2021 10 :44 AM CDT Occupation Industry Job Start Date Job End Date on disability for FMS Not on file Not on file Not on file disabled Not on file Not on file Not on file documented as of this encounter Plan of Treatment Upcoming Encounters Date Type Department Care Team (Late st Contact Info) Description 06/13/2025 6:00 PM OSTRICH FARM WORKER Ancillary Procedure [facility] [address] [address] Omar Carmona MD [address] [place] [address] 06/14/2025 4:00 PM OSTRICH FARM WORKER Office Visit [facility] [address] [phone] Omar Carmona MD [address] [place] [address] 06/15/2025 12:45 PM OSTRICH FARM WORKER Therapy [facility] [address] [place] [phone] Jason Alvares MD [address] [place] [address] [address] [place], [place] 583135 Chaya Castillo OTR [facility] [address] [place], [place] 031637 06/19/2025 10:30 AM OSTRICH FARM WORKER Virtual Visit [facility] [address] [phone] Omar Carmona MD [address] [place] [address] 000145 Gerson Santos [facility] 06/26/2025 11:00 AM OSTRICH FARM WORKER Therapy Visit [facility] [address] [place] [phone] Jason Alvares MD [address] [place] [address] [address] [place], [place] 645145 [facility]illo [facility] [address] [place] [address] 07/09/2025 12:45 PM OSTRICH FARM WORKER Therapy Visit [facility] [address] [place] [phone] Jason Alvares MD 420 [facility] [address] [place] [address] Chaya Castillo, LETA [address] [address] 07/18/2025 3:00 PM OSTRICH FARM WORKER Office Visit [facility] [address] [phone] Adonay Chapman APRN [facility] [address] [place] [address] 11/05/2025 12:30 PM CDT Lab [facility] [address] 1st [place] [phone] 11/05/2025 1:45 PM CDT Office Visit [facility] Dermatology [address]rd [place] [phone] Gavi Nieto PA-C Dermatology [address] [place] [phone] 11/20/2025 10:30 AM CDT Virtual Visit [address] [address] Marquise Hanley MD [address] [place] [address] documented as of this encounter Goals Goal [...] documented as of this encounter Care Teams Hat Blocking Operator Relationship Specialty Start Date End Date Rio Jaquez MD [address] [place] [address] 4 [place] [address] PCP - General Family Practice 12/02/10 07/13/24 Omar Carmona MD [address] [place] [address] PCP - General Family Medicine 07/14/24 Barry Kilpatrick MD [address] [place] [address] [id number] [place] [address] Neurology 07/19/14 Michelle Henderson I, TANIA Nurse Coordinator Neurology 07/19/14 Rio Jaquez MD [address] [place] [address] Family Practice 10/15/14 Jemima Jaramillo MD electric bath attendant 11/20/14 Kelley Chin, TANIA [address] [address] Nurse Coordinator Cardiology 11/04/15 Sydnee Saleem MD [address] [place] [address] [address] [place], [place] [address] Cardiology 11/04/15 Karlene Moya MD [address] [place] [address] 049215 Ophthalmology 06/24/17 Wilbert Quintero OD [address] [place] [address] Optometry 06/24/17 Rod Gauthier DPM [address] [place] [address] Financial Report Service Sales Agent Primary Podiatric Medicine 06/21/18 Jan Mahmood MD 6 [facility] 2A [place], [place] 022855 Gastroenterology 11/05/20 [place] [address] [place] [address] Resident 11/05/20 Jan Mahmood MD 6 [facility] [address] [place] [address] Assigned Gastroenterology Provider 12/01/20 Rio Jaquez MD 9 [facility] 4 [place] [address] Assigned PCP 11/17/20 09/30/24 Dom Eason MD 7 [facility] [address] [place] [address] Internal Medicine 12/02/20 Jaimie Vernon, RN Specialty Custom Protection Officer Cardiology 10/28/21 Marquise Hanley MD [address] [place] [address] [phone] Endocrinology, Diabetes, and Metabolism 03/05/22 Vlad Ramey MD [address] [place] [address] Cardiovascular Disease 05/07/22 Joesph Crowe MD [address] [place] [address] Surgery 05/07/22 Michelle Padilla, RN Specialty Custom Protection Officer Cardiology 07/03/22 Marquise Hanley MD [address] [place] [address] Assigned Endocrinology Provider 08/15/22 Wagner Oliver MD [address] [place] [address] Critical Care 12/15/22 Laura Epperson NP [address] [place], [place] [address] [place] [address] Assigned Nephrology Provider 02/20/23 08/30/24 Joesph Crowe MD [address] [place] [address] Surgery 03/17/23 Joesph Crowe MD [address] [place] [address] Assigned Surgical Provider 04/03/23 09/30/24 Adonay Haq MD [address] [place] [address] Internal Medicine 06/14/23October, Denilson Jackson MD [address] [place] [address] Assigned Heart and Vascular Provider 05/29/23 11/28/24 Jason Alvares MD 420 [facility] [address] [place] [address] Assigned Neuroscience Provider 05/15/23 11/28/24 Ruth Riddle DPM, Podiatry/Foot and Ankle Surgery [address] [place] [address] Assigned Musculoskeletal Provider 10/22/23 Jignesh Mathias MD [address] [place] [address] Gastroenterology 09/25/24 Adonay Haq MD [address] [place] [address] 105485 Assigned PCP 10/01/24 12/28/24 Omar Carmona MD [address] [place] [address] 524[address] Assigned PCP 12/29/24 Jason Alvares MD [address] [place] [address] Assigned Neuroscience Provider 12/29/24 Jignesh Mathias MD [address] [place] [address] Assigned Surgical Provider 12/29/24 Ayad Lopez, PhD LP [address] [place] [address] 411195 Assigned Behavioral Health Provider 02/28/25 Gavi Nieto PA-C [address] [place] [address] 148595 Physician Middle School Guidance Counselor Dermatology 03/19/25 documented as of this encounter
--- OUTSIDE RECORDS SUMMARY | 2025-06-10 11:37 | XMS_ITS | Encounter Summary ---
Author Organization [facility] Address [address] [place] [address] Care Team Providers Care Labor Gang Supervisor Name Role Phone Rio Jaquez MD Primary Care Provider Barry Kilpatrick MD Unavailable Michelle Henderson I RN Unavailable [phone] Rio Jaquez MD Unavailable +[phone] Jemima Jaramillo MD Unavailable Unavai Kelley Bautista RN Unavailable [phone] Sydnee Saleem MD Unavailable +[phone] Karlene Moya MD Unavailable +[phone] Wilbert Quintero OD Unavailable +[phone] Rod Gauthier DPM Unavailable [phone] Jan Mahmood MD Unavailable [phone] Brandt Quintana MD Unavailable Jan Mahmood MD Unavailable +[phone] Rio Jaquez MD Unavailable +[phone] Dom Eason MD Unavailable + [phone] [place], Jaimie RN Unavailable Unavailable Marquise Hanley MD Unavailable +[phone] Vlad Ramey MD Unavailable +[phone] Joesph Crowe MD Unavailable + [phone] Michelle Padilla RN Unavailable Unavaila ble Marquise Hanley MD Unavailable +[phone] Wagner Oliver MD Unavailable +[phone] Laura Epperson NP Unavailable +[phone] Joesph Crowe MD Unavailable + [phone] Joesph Crowe MD Unavailable + [phone] Adonay Haq MD Unavailable [phone] Denilson Srinivasan MD Unavailable + [phone] Jason Alvares MD Unavailable Ruth RiddleM, Podiatry /Foot and Ankle Surgery Unavailable Omar Carmona MD Primary Care Provider [phone] Jignesh Mathias MD Unavailable Adonay Haq MD Unavailable [phone] Omar Carmona MD Unavailable [phone] Jason Alvares MD Unavailable Jignesh Mathias MD Unavailable Ayad Lopez PhD LP Unavailable +[phone] Gavi Nieto PA-C Unavailable [phone] Encounter Details Date Type Department Care Team (Late st Contact Info) Description 05/29/2024 [facility] [address] [address] Marquise Hanley MD [address] [place] [address] Social History Tobacco Use Types Packs/Day [...] Answer Date Recorded PHQ-2 Score 2 02/28/2024 [facility] of Occupat ional Health - [...] Sex Assigned at Female 09/12/2020 12:05 PM PORT TRAFFIC MANAGER Legal Sex Female 3:26 AM PORT TRAFFIC MANAGER Gender Identity Female 09/12/2020 12:05 PM PORT TRAFFIC MANAGER Sexual Orientation Straight 12/19/2021 10 :44 AM CDT Occupation Industry Job Start Date Job End Date on disability for FMS Not on file Not on file Not on file disabled Not on file Not on file Not on file documented as of this encounter Plan of Treatment Upcoming Encounters Date Type Department Care Team (Late st Contact Info) Description 06/13/2025 6:00 PM PORT TRAFFIC MANAGER Ancillary Procedure [facility] [address] 1st [place] [address] Omar Carmona MD [address] [place] [address] 06/14/2025 4:00 PM PORT TRAFFIC MANAGER Office Visit [facility] [address] [phone] Omar Carmona MD [address] [place] [address] 06/15/2025 12:45 PM PORT TRAFFIC MANAGER Therapy Visit [facility] [address] [place] [phone] Jason Alvares MD [address] [place] [address] Chaya Castillo, OTR [facility] 150 [place], [place] 8[address]247 06/19/2025 10:30 AM PORT TRAFFIC MANAGER Virtual Visit [facility] Primary Care [address] [phone] Omar Carmona MD [address] [place] [address] Gerson Santos [facility] 06/26/2025 11:00 AM PORT TRAFFIC MANAGER Therapy Visit [facility] [place] [address] [place] [phone] Jason Alvares MD [address] [place] [address] 036735 Chaya Castillo, OTR [facility] [address] [facility] [place] [place] [address] 07/09/2025 12:45 PM PORT TRAFFIC MANAGER Therapy Visit [facility] [place] [address] [place] [address] Jason Alvares MD 420 [facility] 295 [place] [address] Chaya Castillo, OTR [facility] 150 [place] [address] 07/18/2025 3:00 PM PORT TRAFFIC MANAGER Office Visit [facility] Heart [address] [phone] Adonay Chapman APRN [facility] 500 [place], [place] 694895 11/05/2025 12:30 PM CDT Lab [facility] Lab [address]st [place] [phone] 11/05/2025 1:45 PM CDT Office Visit [facility] Dermatology [address] [phone] Gavi Nieto PAJimmy Dermatology [address] [place] [address] 11/20/2025 10:30 AM CDT Virtual Visit [address] [address] Marquise Hanley MD [address] [place] [address] documented as of this encounter Goals Goal [...] as of this encounter Care Teams Labor Gang Supervisor Relationship Specialty Start Date End Date Rio Jaquez MD [address] [place] [address] 4 [place] [address] PCP - General Family Practice 12/02/10 07/13/24 Omar Carmona MD [address] [place] [address] [phone] PCP - General Family Medicine 07/14/24 Barry Kilpatrick MD [address] [place] [address] [id number] [place], [place] 359165 Neurology 07/19/14 Michelle Henderson I, RN Nurse Coordinator Neurology 07/19/14 Rio Jaquez MD [address] [place] [address] 4 [place], [place] 481335 Family Practice 10/15/14 Jemima Jaramillo MD air conditioner installer helper 11/20/14 Kelley Chin, RN [address] 800615 Nurse Coordinator Cardiology 11/04/15 Sydnee Saleem MD [address] [place] [address] 508 [place], [place] [phone] Cardiology 11/04/15 Karlene Moya MD [address] [place] [address] [phone] Ophthalmology 06/24/17 Wilbert Quintero OD 9 [place], [place] 356445 Optometry 06/24/17 Rod Gauthier DPM [address] [place] [address] [phone] Planning Management It Specialist Primary Podiatric Medicine 06/21/18 Jan Mahmood MD [address] [place] [address] 357885 Gastroenterology 11/05/20 Brandt Quintana MD [address] [place] [address] [phone] Resident 11/05/20 Jan Mahmood MD [address] [place] [address] 736345 Assigned Gastroenterology Provider 12/01/20 Rio Jaquez MD [address] 214225 Assigned PCP 11/17/20 09/30/24 Dom Eason MD [address] [phone] Internal Medicine 12/02/20 Jaimie Vernon, RN Specialty Superintendent Recreation Cardiology 10/28/21 Marquise Hanley MD [address] [place] [address] Endocrinology, Diabetes, and Metabolism 03/05/22 Vlad Ramey MD [address] [place] [address]13 Cardiovascular Disease 05/07/22 Joesph Crowe MD [address] [place] [address] Surgery 05/07/22 Michelle Padilla, RN Specialty Superintendent Recreation Cardiology 07/03/22 Marquise Hanley MD [address] [place] [address] Assigned Endocrinology Provider 08/15/22 Wagner Oliver MD [address] [place] [address] Critical Care 12/15/22 Laura Epperson NP [address] [place], [place] [address] [place] [address] Assigned Nephrology Provider 02/20/23 08/30/24 Joesph Crowe MD [address] [place] [address] Surgery 03/17/23 Joesph Corwe MD [address] [place] [address]266 Assigned Surgical Provider 04/03/23 09/30/24 Adnoay Haq MD [address] [place] [address] Internal Medicine 06/14/23OctoberDenilson MD [address] [place] [address] Assigned Heart and Vascular Provider 05/29/23 11/28/24 Jason Alvares MD [address] [place] [address] Assigned Neuroscience Provider 05/15/23 11/28/24 Ruth Riddle DPM, Podiatry/Foot and Ankle Surgery [address] [place], [place] 154987 Assigned Musculoskeletal Provider 10/22/23 Jignesh Mathias MD [address] [place] [address] Gastroenterology 09/25/24 Adonay Haq MD [address] [place] [address] Assigned PCP 10/01/24 12/28/24 Omar Carmona MD [address] [place] [address] Assigned PCP 12/29/24 Jason Alvares MD [address] [place] [address] Assigned Neuroscience Provider 12/29/24 Jignesh Mathias MD [address] [place] [address] Assigned Surgical Provider 12/29/24 Ayad Lopez, PhD LP [address] [place] [address] Assigned Behavioral Health Provider 02/28/25 Gavi Nieto, PANavinC [address] [place] [address] 067625 Physician Sweatband Separator Dermatology 03/19/25 documented as of this encounter
--- OUTSIDE RECORDS SUMMARY | 2025-06-10 11:37 | XMS_ITS | Encounter Summary ---
Author Organization [place] Address [address] [place] [address] Care Team Providers Care Reuse Technician Name Role Phone Rio Jaquez MD Primary Care Provider + [phone] Barry Kilpatrick MD Unavailable Michelle Henderson RN Unavailable +[phone] Rio Jaquez MD Unavailable +[phone] Jemima Jaramillo MD Unavailable Unavai Kelley Bautista RN Unavailable +[phone] Sydnee Saleem MD Unavailable +[phone] Karlene Moya MD Unavailable +[phone] Wilbert Quintero OD Unavailable +[phone] Rod GauthierM Unavailable +[phone] Nallely Hogue RN Unavailable Unavailable Larisa Vargas RN Unavailable Unavailable Jan Mahmood MD Unavailable +[phone] Brandt Quintana MD Unavailable +[phone] Jan Mahmood MD Unavailable +[phone] Rio Jaquez MD Unavailable +[phone] Dom Eason MD Unavailable +[phone] Jayla Plaza RN Unavailable +[phone] Sydnee [...] Unavailable +[phone] Dom Eason MD Unavailable +[phone] Wagner Oliver MD Unavailable +[phone] Laura Epperson NP Unavailable +[phone] Thom Taveras MD Unavailable +[phone] Joesph Crowe MD Unavailable +[phone] Joesph Crowe MD Unavailable + [phone] Adonay Haq MD Unavailable +[phone] Denilson Srinivasan MD Unavailable + [phone] Jason Alvares MD Unavailable Ruth Riddle DPM, Podiatry /Foot and Ankle Surgery Unavailable Omar Carmona MD Primary Care Provider +[phone] Jignesh Mathias MD Unavailable Adonay Haq MD Unavailable +[phone] Omar Carmona MD Unavailable +[phone] Jason Alvares MD Unavailable Jignesh Mathias MD Unavailable Ayad Lopez PhD LP Unavailable +[phone] Gavi Nieto PA-C Unavailable +[phone] Encounter Details Date Type Department Care Team (Late st Contact Info) Description 01/14/2022 [facility] [place] Department [address] [place] [phone] Lizbeth Lopes Social History Tobacco Use Types [...] Answer Date Recorded PHQ-2 Score 2 08/27/2021 [facility] - [...] Sex Assigned at Female 09/12/2020 12:05 PM HEAT TREATER Legal Sex Female 3:26 AM HEAT TREATER Gender Identity Female 09/12/2020 12:05 PM HEAT TREATER Sexual Orientation Straight 12/19/2021 10 :44 AM [...] st Contact Info) Description 06/13/2025 6:00 PM HEAT TREATER Ancillary Procedure [facility] Imaging Center CT Clinic [address] [phone] Omar Carmona MD [address] [place] [address] [phone] 06/14/2025 4:00 PM HEAT TREATER Office Visit [facility] Primary Care Clinic [address] [place] [phone] Omar Carmona MD [address] [place] [address] 655655 06/15/2025 12:45 PM HEAT TREATER Therapy Visit [facility] Rehabilitation Services [address] [phone] Jason Alvares MD [address] [place] [address] [phone] Chaya Castillo OTR [facility] [address] [place] [address] 06/19/2025 10:30 AM HEAT TREATER Virtual Visit [facility] Primary Care Clinic [address] [place] [address] 4th [place] [phone] Omar Carmona MD [address] [place] [address] [phone] Gerson Santos, [facility] 06/26/2025 11:00 AM HEAT TREATER Therapy Visit [address] [phone] Jason Alvares MD [address] [place] [address] 666155 Chaya [facility]illo [facility] [address] [place] [address] 07/09/2025 12:45 PM HEAT TREATER Therapy Visit [address] [phone] Jason Alvares MD [address] [place] [address] 790245 Chaya Castillo [facility]TR [facility] [address] [place] [address] 07/18/2025 3:00 PM HEAT TREATER Office Visit [facility] Heart Clinic [address] [phone] Adonay Chapman APRN [address] [phone] 11/05/2025 12:[address] [facility] Lab [address] [place] [phone] 11/05/2025 1:45 PM CDT Office Visit [facility] Dermatology Clinic [address] [place] [phone] Gavi Nieto PA-C Dermatology [address] [place] [address] 11/20/2025 10:30 AM CDT Virtual Visit [address] [address] Marquise Hanley MD [address] [place] [address] documented as of this encounter Goals Goal [...] Total Score: 5 08/27/19 22 9:25 AM HEAT TREATER documented as of this encounter Care Teams Reuse Technician Relationship Specialty Start Date End Date Rio Jaquez MD [address] [place] [address]29 PCP - General Family Practice 12/02/10 07/13/24 Omar Carmona MD [address] [place] [address] 95126 PCP - General Family Medicine 07/14/24 Barry Kilpatrick MD [address] [place] [address] HV9062JO [place], [place] 864945 Neurology 07/19/14 Michelle Henderson I, RN Nurse Coordinator Neurology 07/19/14 Rio Jaquez MD [address] [place] [address] 4 [place], [place] 748905 Family Practice 10/15/14 Jemima Jaramillo MD sleeve sewer 11/20/14 Kelley Chin RN [address] 866365 Nurse Coordinator Cardiology 11/04/15 Sydnee Saleem MD [address] [place] [address] 508 [place], [place] [phone] Cardiology 11/04/15 Karlene Moya MD [address] [place] [address] 355695 Ophthalmology 06/24/17 Wilbert Quintero, OD [address] [place] [address] [phone] Optometry 06/24/17 Rod Gauthier DPM [address] [place] [address] 787245 Basic Acoustic Analyst Primary Podiatric Medicine 06/21/18 Nallely Hogue, RN Registered Nurse 02/20/19 11/23/22 Larisa Vargas, TANIA Specialty Vigoureux Printer Cardiology 04/18/19 03/06/22 Jan Mahmood MD 516 [facility] 2[address] [place] [address] Gastroenterology 11/05/20 Brandt Quintana MD 1414 [place] [address] Resident 11/05/20 Jan Mahmood MD 516 [facility] [address] [place] [address] Assigned Gastroenterology Provider 12/01/20 Rio Jaquez MD 909 [facility] 4 [place] [address] Assigned PCP 11/17/20 09/30/24 Dom Eason MD 717 [facility] [address] [place], [place] 904854 Internal Medicine 12/02/20 Jayla Plaza, RN Specialty Vigoureux Printer Hepatology 01/09/21 02/13/24 Sydnee Saleem MD [address] [place] [address] [phone] Assigned Heart and Vascular Provider 02/02/21 07/24/22 Cristian Barragan MD 2945 [place] [address] Assigned Infectious Disease Provider 02/21/21 03/06/22 Jaimie Vernon, TANIA Specialty V[employer]oure[employer] Printer Cardiology 10/28/21 Ruth Riddle DPM, Podiatry/Foot and Ankle Surgery [address] [place] [address] [address] Assigned Musculoskeletal Provider 11/30/21 09/30/23 Jason Alvares MD [address] [place] [address]709 Assigned Neuroscience Provider 01/03/22 05/15/22 Marquise Hanley MD [address] [place] [address] 58735 Endocrinology, Diabetes, and Metabolism 03/05/22 Vlad Ramey MD [address] [place] [address] [phone] Cardiovascular Disease 05/07/22 Joesph Crowe MD [address] [place] [address] 36802 Surgery 05/07/22 Luis Arrington MD [address] [place] [address] 40768 Assigned Neuroscience Provider 05/16/22 05/14/23 Michelle Padilla, TANIA Specialty V[employer]oure[employer] Printer Cardiology 07/03/22 Vlad Ramey MD [address] [place] [address] [phone] Assigned Heart and Vascular Provider 07/25/22 05/28/23 Marquise Hanley MD [address] [place] [address] 9[address] Assigned Endocrinology Provider 08/15/22 Dom Eason MD 717 [facility] [address] [place] [address] Assigned Nephrology Provider 11/28/22 02/19/23 Wagner Oliver MD [address] [place] [address] Critical Care 12/15/22 Laura Epperson NP 717 [facility] [address] [place] [address] Assigned Nephrology Provider 02/20/23 08/30/24 Thom Taveras MD [facility] [address] [place] [address] Assigned Cancer Care Provider 02/06/23 08/20/23 Joesph Crowe MD [address] [place] [address] 81782 Surgery 03/17/23 Joesph Crowe MD [address] [place] [address] 91025 Assigned Surgical Provider 04/03/23 09/30/24 Adonay Haq MD [address] [place] [address] 36616 Internal Medicine 06/14/23OctoberDenilson MD [address] [facility] [address] [place] [address] Assigned Heart and Vascular Provider 05/29/23 11/28/24 Jason Alvares MD [address] [place] [address] 15[address] Assigned Neuroscience Provider 05/15/23 11/28/24 Ruth Riddle DPM, Podiatry/Foot and Ankle Surgery [address] [place] [address] Assigned Musculoskeletal Provider 10/22/23 Jignesh Mathias MD [address] [place] [address] 52653 Gastroenterology 09/25/24 Adonay aHq MD [address] [place] [address] 58626 Assigned PCP 10/01/24 12/28/24 Omar Carmona MD [address] [place] [address] 39008 Assigned PCP 12/29/24 Jason Alvares MD [address] [place] [address]96 Assigned Neuroscience Provider 12/29/24 Jignesh Mathias MD [address] [place] [address] 30367 Assigned Surgical Provider 12/29/24 Ayad Lopez, PhD LP [address] [place] [address] 58[address] Assigned Behavioral Health Provider 02/28/25 Gavi Nieto PA-C [address] [place], [place] 220605 Physician Housekeeping And Laundry Team Leader Dermatology 03/19/25 documented as of this encounter
--- OUTSIDE RECORDS SUMMARY | 2025-06-10 11:37 | XMS_ITS | Encounter Summary ---
Author Organization [place] Address [address] [place] [address] Care Team Providers Care Color Television Console Monitor Name Role Phone Rio Jaquez MD Primary Care Provider + [phone] Barry Kilpatrick MD Unavailable Michelle Henderson RN Unavailable [phone] Rio Jaquez MD Unavailable +[phone] Jemima Jaramillo MD Unavailable Unavai Kelley Bautista RN Unavailable +[phone] Sydnee Saleem MD Unavailable +[phone] Karlene Moya MD Unavailable +[phone] Wilbert Quintero OD Unavailable +[phone] Rod GauthierM Unavailable +[phone] Nallely Hogue RN Unavailable Unavailable Larisa Vargas RN Unavailable Unavailable Jan Mahmood MD Unavailable +[phone] Brandt Quintana MD Unavailable +[phone] Jan Mahmood MD Unavailable +[phone] Rio Jaquez MD Unavailable +[phone] Dom Eason MD Unavailable +[phone] Jayla Plaza RN Unavailable +[phone] Sydnee [...] Unavailable +[phone] Dom Eason MD Unavailable +[phone] Wagner Oliver MD Unavailable +[phone] Laura Epperson NP Unavailable +[phone] Thom Taveras MD Unavailable +[phone] Joesph Crowe MD Unavailable +[phone] Joesph Crowe MD Unavailable + [phone] Adonay Haq MD Unavailable +[phone] Denilson Srinivasan MD Unavailable + [phone] Jason Alvares MD Unavailable Ruth Riddle DPM, Podiatry /Foot and Ankle Surgery Unavailable Omar Carmona MD Primary Care Provider +[phone] Jignesh Mathias MD Unavailable Adonay Haq MD Unavailable +[phone] Omar Carmona MD Unavailable +[phone] Jason Alvares MD Unavailable Jignesh Mathias MD Unavailable Ayad Lopez PhD LP Unavailable +[phone] Gavi Nieto PA-C Unavailable +[phone] Encounter Details Date Type Department Care Team (Late st Contact Info) Description 01/06/2022 MyC Medical Advice [facility] Neurology Clinic [address] [place] [address] Alaina Moreland CMA Social History [...] than three times a week 08/27/2021 Attends [employer] Not on file 08/27 Do you [...] Answer Date Recorded PHQ-2 Score 2 08/27/2021 [facility] - Occupational Stress Questionnaire Answer Date [...] Sex Assigned at Female 09/12/2020 12:05 PM COUNTY HISTORIAN Legal Sex Female 3:26 AM COUNTY HISTORIAN Gender Identity Female 09/12/2020 12:05 PM COUNTY HISTORIAN Sexual Orientation Straight 12/19/2021 10 :44 AM [...] st Contact Info) Description 06/13/2025 6:00 PM COUNTY HISTORIAN Ancillary Procedure [facility] Imaging Center CT Clinic [address] [place] [phone] Omar Carmona MD [address] [place] [address] [phone] 06/14/2025 4:00 PM COUNTY HISTORIAN Office Visit [facility] Primary Care Clinic [address] [place] [address] Omar Carmona MD [address] [place] [address] [phone] 06/15/2025 12:45 PM COUNTY HISTORIAN Therapy Visit [facility] Rehabilitation Services [address] [phone] Jason Alvares MD [address] [place] [address] [address] [place] [address] Chaya Castillo [facility]TR [facility] 150 [place] [address] 06/19/2025 10:30 AM COUNTY HISTORIAN Virtual Visit [facility] Primary Care Clinic [address] [place] [address] 4th [place] [phone] Omar Carmona MD [address] [place] [address] [phone] Gerson Santos, [facility] 06/26/2025 11:00 AM COUNTY HISTORIAN Therapy Visit [address] [phone] Jason Alvares MD [address] [place] [address] 447375 Chaya Castillo [facility]TR [facility] [address] [place] [address] 07/09/2025 12:45 PM COUNTY HISTORIAN Therapy Visit [facility] 150 [place] [phone] Jason Alvares MD [address] [place] [address] 234615 Chaya Castillo OTR [facility] 150 [place] [address] 07/18/2025 3:00 PM COUNTY HISTORIAN Office Visit [facility] Heart Clinic [address] [phone] Adonay Chapman APRN [address] 169795 11/05/2025 12:30 PM CDT Lab [facility] Lab [address] 1st [place] [phone] 11/05/2025 1:45 PM CDT Office Visit [facility] Dermatology Clinic [address] [place] [phone] Gavi Nieto PA-C Dermatology [address] [place] [address] 11/20/2025 10:30 AM CDT Virtual Visit [address] [address] Marquise Hanley MD [address] [place] [address] [phone] documented as of this encounter Goals Goal [...] Total Score: 5 08/27/19 22 9:25 AM COUNTY HISTORIAN documented as of this encounter Care Teams Color Television Console Monitor Relationship Specialty Start Date End Date Rio Jaquez MD [address] [place] [address] 480615 PCP - General Family Practice 12/02/10 07/13/24 Omar Carmona MD [address] [place] [address] 870675 PCP - General Family Medicine 07/14/24 Barry Kilpatrick MD 9 [facility] [place], [place] 402255 Neurology 07/19/14 Michelle Henderson I, RN Nurse Coordinator Neurology 07/19/14 Rio Jaquez MD [address] [place] [address] [place] [address] [place], [place] 678495 Family Practice 10/15/14 Jemima Jaramillo MD marketing officer 11/20/14 Kelley Chin RN [address] 001935 Nurse Coordinator Cardiology 11/04/15 Sydnee Saleem MD 420 [facility] 508 [place], [place] 538715 Cardiology 11/04/15 Karlene Moya MD [address] [place] [address] 566545 Ophthalmology 06/24/17 Wilbert Quintero, OD [address] [place] [address] 976835 Optometry 06/24/17 Rod Gauthier DPM [address] [place] [address] [phone] [employer] Primary Podiatric Medicine 06/21/18 Nallely Hogue, RN Registered Nurse 02/20/19 11/23/22 Larisa Vargas, TANIA Specialty Fire Alarm Mechanic Cardiology 04/18/19 03/06/22 Jan Mahmood MD 516 [facility] 2A [place] [address] Gastroenterology 11/05/20 [place] [address] [place] [address] Resident 11/05/20 Jan Mahmood MD 516 [facility] [address] [place] [address] Assigned Gastroenterology Provider 12/01/20 Rio Jaquez MD 909 [facility] 4 [place] [address] Assigned PCP 11/17/20 09/30/24 Dom Eason MD 717 [facility] 353 [place] [address] Internal Medicine 12/02/20 Jayla Plaza, RN Specialty Fire Alarm Mechanic Hepatology 01/09/21 02/13/24 Sydnee Saleem MD 6550 [facility] [address] [place] [address] [phone] Assigned Heart and Vascular Provider 02/02/21 07/24/22 Cristian Barragan MD 2945 [place] [address] Assigned Infectious Disease Provider 02/21/21 03/06/22 Jaimie Vernon, TANIA Specialty Fire Alarm Mechanic Cardiology 10/28/21 Ruth Riddle DPM, Podiatry/Foot and Ankle Surgery [address] [place] [address] 72353 Assigned Musculoskeletal Provider 11/30/21 09/30/23 Jason Alvares MD [address] [place] [address] 8[address]37 Assigned Neuroscience Provider 01/03/22 05/15/22 Marquise Hanley MD [address] [place] [address] 99772 Endocrinology, Diabetes, and Metabolism 03/05/22 Vlad Ramey MD [address] [place] [address] 84319 Cardiovascular Disease 05/07/22 Joesph Crowe MD [address] [place] [address] 20132 Surgery 05/07/22 Luis Arrington MD [address] [place] [address] 83480 Assigned Neuroscience Provider 05/16/22 05/14/23 Michelle Padilla RN Specialty Fire Alarm Mechanic Cardiology 07/03/22 Vlad Ramey MD [address] [place] [address] 79510 Assigned Heart and Vascular Provider 07/25/22 05/28/23 Marquise Hanley MD [address] [place] [address] 56043 Assigned Endocrinology Provider 08/15/22 Dom Eason MD 717 [facility] [address] [place] [address] Assigned Nephrology Provider 11/28/22 02/19/23 Wagner Oliver MD [address] [place] [address] Critical Care 12/15/22 Laura Epperson NP 7 [facility] [address] [place] [address] Assigned Nephrology Provider 02/20/23 08/30/24 Thom Taveras MD [address] [place] [address] Assigned Cancer Care Provider 02/06/23 08/20/23 Joesph Crowe MD [address] [place] [address] 47[address] Surgery 03/17/23 Joesph Crowe MD [address] [place] [address] 39669 Assigned Surgical Provider 04/03/23 09/30/24 Adonay Haq MD [address] [place] [address] 77159 Internal Medicine 06/14/23OctoberDenilson MD [address] [place] [address] Assigned Heart and Vascular Provider 05/29/23 11/28/24 Jason Alvares MD [address] [address] Assigned Neuroscience Provider 05/15/23 11/28/24 Ruth Riddle, DPM, Podiatry/Foot and Ankle Surgery [address] [place], [place] 015927 Assigned Musculoskeletal Provider 10/22/23 Jignesh Mathias MD [address] [place] [address] 612335 Gastroenterology 09/25/24 Adonay Haq MD [address] [place] [address] [phone] Assigned PCP 10/01/24 12/28/24 Omar Carmona MD [address] [place] [address] 465175 Assigned PCP 12/29/24 Jason Alvares MD [address] [place] [address] 20186 Assigned Neuroscience Provider 12/29/24 Jignesh Mathias MD [address] [place] [address] 974615 Assigned Surgical Provider 12/29/24 Ayad Lopez, PhD LP [address] [place] [address] 69[address] Assigned Behavioral Health Provider 02/28/25 Gavi Nieto PA-C [address] [place] [address] Physician Clinical Outcomes Manager Dermatology 03/19/25 documented as of this encounter
--- OUTSIDE RECORDS SUMMARY | 2025-06-10 11:37 | XMS_ITS | Encounter Summary ---
Author Organization [place] Address [address] [place] [address] 7[address]32 Care Team Providers Care Photo Offset Printer Name Role Phone Rio Jaquez MD Primary Care Provider Barry Kilpatrick MD Unavailable Michelle Henderson RN Unavailable [phone] Rio Jaquez MD Unavailable +[phone] Jemima Jaramillo MD Unavailable Unavai Kelley Bautista RN Unavailable +[phone] Sydnee Saleem MD Unavailable +[phone] Karlene Moya MD Unavailable +[phone] Wilbert Quintero OD Unavailable +[phone] Rod Gauthier DPM Unavailable +[phone] Nallely Hogue RN Unavailable Unavailable Larisa Vargas RN Unavailable Unavailable Francisco Lott MD Unavailable +[phone] Jan Mahmood MD Unavailable +[phone] Brandt Quintana MD Unavailable +[phone] Jan Mahmood MD Unavailable +[phone] Rio Jaquez MD Unavailable +[phone] Dom Eason MD Unavailable +[phone] Jayla Plaza RN Unavailable +[phone] Sydnee Saleem MD Unavailable +[phone] Cristian Barragan MD Unavailable +[phone] Dom Eason MD Unavailable +[phone] Jaimie Vernon RN Unavailable Unavailable Ruth Riddle [...] Unavailable +[phone] Dom Eason MD Unavailable +[phone] Wagner Oliver MD Unavailable + [phone] Laura Epperson NP Unavailable +[phone] Thom Taveras MD Unavailable +[phone] Joesph Crowe MD Unavailable + [phone] Joesph Crowe MD Unavailable + [phone] Adonay Haq MD Unavailable +[phone] Denilson Srinivasan MD Unavailable + [phone] Jason Alvares MD Unavailable Ruth Riddle DPM, Podiatry /Foot and Ankle Surgery Unavailable Omar Carmona MD Primary Care Provider [phone] Jignesh Mathias MD Unavailable Adonay Haq MD Unavailable +[phone] Omar Carmona MD Unavailable +[phone] Jason Alvares MD Unavailable Jignesh Mathias MD Unavailable Ayad Lopez PhD LP Unavailable +[phone] Gavi Nieto PA-C Unavailable +[phone] Encounter Details Date Type Department Care Team (Late st Contact Info) Description 12/09/2021 [facility] [place] [facility] Primary Care Clinic [address] 4th [place] [address] Rio Jaquez MD [address] [place] [address] 4 [place] [address] Social History Tobacco Use Types [...] r organizations such as uatsdin groups, unions, [employer] or athletic groups, or school groups? No [...] Sex Assigned at Female 09/12/2020 12:05 PM CRITICAL CARE NURSE PRACTITIONER Legal Sex Female 3:26 AM CRITICAL CARE NURSE PRACTITIONER Gender Identity Female 09/12/2020 12:05 PM CRITICAL CARE NURSE PRACTITIONER Sexual Orientation Straight 12/19/2021 10 [...] st Contact Info) Description 06/13/2025 6:00 PM CRITICAL CARE NURSE PRACTITIONER Ancillary Procedure [facility] CT Clinic [address] [phone] Omar Carmona MD [address] [place] [address] 818505 06/14/2025 4:00 PM CRITICAL CARE NURSE PRACTITIONER Office Visit [facility] Primary Care [address] [phone] Omar Carmona MD [address] [place] [address] 106825 06/15/2025 12:45 PM CRITICAL CARE NURSE PRACTITIONER Therapy Visit [facility] [address] [place] [phone] Jason Alvares MD [address] [place] [address] 765735 Chaya Castillo OTR [facility] 150 [place], [place] 698677 06/19/2025 10:30 AM CRITICAL CARE NURSE PRACTITIONER Virtual Visit [address] [phone] Omar Carmona MD [address] [place] [address] 108305 Gerson Santos RPH 06/26/2025 11:00 AM CRITICAL CARE NURSE PRACTITIONER Therapy Visit [facility] [address] [place] [phone] Jason Alvares MD [address] [place] [address] 344965 Chaya Castillo OTR [facility] [address] [facility] [place] [address] 07/09/2025 12:45 PM CRITICAL CARE NURSE PRACTITIONER Therapy Visit [facility] Rehabilitation Services [address] [phone] Jason Alvares MD 420 [facility] 295 [place] [address] Chaya Castillo, OTR [address] [address] 07/18/2025 3:00 PM CRITICAL CARE NURSE PRACTITIONER Office Visit [facility] Heart [address] [phone] Adonay Chapman APRN [facility] 500 [place], [place] 723985 11/05/2025 12:30 PM CDT Lab [facility] Lab [place] [address] [facility] 1st [place] [phone] 11/05/2025 1:45 PM CDT Office Visit [facility] Dermatology [address] 3rd [place] [phone] Gavi Nieto PA-C Dermatology [address] [place] [address] 922[address] 11/20/2025 10:30 AM CDT Virtual Visit [address] [place] [address] Marquise Hanley MD [address] [place] [address] 056035 documented as of this encounter Goals Goal [...] Total Score: 5 08/27/19 22 9:25 AM CRITICAL CARE NURSE PRACTITIONER documented as of this encounter Care Teams Photo Offset Printer Relationship Specialty Start Date End Date Rio Jaquez MD [address] [place] [address] [phone] PCP - General Family Practice 12/02/10 07/13/24 Omar Carmona MD [address] [place] [address] [phone] PCP - General Family Medicine 07/14/24 Barry Kilpatrick MD [address] [place] [address] [id number] [place] [phone] Neurology 07/19/14 Michelle Henderson RN Nurse Coordinator Neurology 07/19/14 Rio Jaquez MD [address] [place] [address] 17692 Family Practice 10/15/14 Jemima Jaramillo MD intern product marketing manager 11/20/14 Kelley Chin, TANIA [address] [phone] Nurse Coordinator Cardiology 11/04/15 Sydnee Saleem MD 420 [facility] 508 [place] [address] Cardiology 11/04/15 Karlene Moya MD [address] [place] [address] 54724 Ophthalmology 06/24/17 Wilbert Quintero, OD [address] [place] [address] 97177 Optometry 06/24/17 Rod Gauthier DPM [address] [place] [address] 20647 Supply Chain Planner Primary Podiatric Medicine 06/21/18 Nallely Hogue, RN Registered Nurse 02/20/19 11/23/22 Larisa Vargas, TANIA Specialty Front End Web Developer Cardiology 04/18/19 03/06/22 Francisco Lott MD [address] [place] [address] 88 [place], [place] 807635 Assigned Rheumatology Provider 05/31/20 12/13/21 Jan Mahmood MD [address] [place] [address] 21947 Gastroenterology 11/05/20 Brandt Quintana MD [address] [place] [address] 47395 Resident 11/05/20 Jan Mahmood MD [address] [place] [address] [address] [place] [address] Assigned Gastroenterology Provider 12/01/20 Rio Jaquez MD [address] [place] [address] 4 [place] [address] Assigned PCP 11/17/20 09/30/24 Dom Eason MD [address] [place] [address] 39842 Internal Medicine 12/02/20 Jayla Plaza, RN Specialty Front End Web Developer Hepatology 01/09/21 02/13/24 Sydnee Saleem MD [address] [place] [address] 38742 Assigned Heart and Vascular Provider 02/02/21 07/24/22 Cristian Barragan MD [address] [place] [address] Assigned Infectious Disease Provider 02/21/21 03/06/22 Dom Eason MD [address] [place] [address] 14326 Assigned Nephrology Provider 04/20/21 01/02/22 Jaimie Vernon, TANIA Specialty Front End Web Developer Cardiology 10/28/21 Ruth Riddle DPM, Podiatry/Foot and Ankle Surgery [address] [address] Assigned Musculoskeletal Provider 11/30/21 09/30/23 Luis Arrington MD [address] [place] [address] 07422 Assigned Neuroscience Provider 11/23/21 01/02/22 Jason Alvares MD [address] [place] [address] 19117 Assigned Neuroscience Provider 01/03/22 05/15/22 Marquise Hanley MD [address] [place] [address] 22580 Endocrinology, Diabetes, and Metabolism 03/05/22 Vlad Ramey MD [address] [place] [address] [phone] Cardiovascular Disease 05/07/22 Joesph Crowe MD [address] [place] [address] 99107 Surgery 05/07/22 Luis Arrington MD [address] [place] [address] 449865 Assigned Neuroscience Provider 05/16/22 05/14/23 Michelle Padilla RN Specialty Front End Web Developer Cardiology 07/03/22 Vlad Ramey MD [address] [place] [address] 56951 Assigned Heart and Vascular Provider 07/25/22 05/28/23 Marquise Hanley MD [address] [place] [address] 37353 Assigned Endocrinology Provider 08/15/22 Dmo Eason MD [address] [place] [address] 26757 Assigned Nephrology Provider 11/28/22 02/19/23 Wagner Oliver MD [address] [place] [address] Critical Care 12/15/22 Laura Epperson NP 717 [facility] [address] [place] [address] Assigned Nephrology Provider 02/20/23 08/30/24 Thom Taveras MD [facility] [address] [place] [address] Assigned Cancer Care Provider 02/06/23 08/20/23 Joesph Crowe MD [address] [place] [address] 33690 Surgery 03/17/23 Joesph Crowe MD [address] [place] [address] 61480 Assigned Surgical Provider 04/03/23 09/30/24 Adonay Haq MD 9 [place] [address] Internal Medicine 06/14/23OctoberDenilson MD [address] [facility] [address] [place] [address] Assigned Heart and Vascular Provider 05/29/23 11/28/24 Jason Alvares MD 420 [facility] 295 [place], [place] 205085 Assigned Neuroscience Provider 05/15/23 11/28/24 Ruth Riddle DPM, Podiatry/Foot and Ankle Surgery [address] [place], [place] 0[address]27 Assigned Musculoskeletal Provider 10/22/23 Jignesh Mathias MD [address] [place] [address] 227645 Gastroenterology 09/25/24 Adonay Haq MD [address] [place] [address] 143745 Assigned PCP 10/01/24 12/28/24 Omar Carmona MD [address] [place] [address] 073165 Assigned PCP 12/29/24 Jason Alvares MD [address] [place] [address] 295 [place], [place] 124185 Assigned Neuroscience Provider 12/29/24 Jignesh Mathias MD [address] [place] [address] 279015 Assigned Surgical Provider 12/29/24 yAad Lopez, PhD LP [address] [place] [address] 152635 Assigned Behavioral Health Provider 02/28/25 Gavi Nieto, PA-C [address] [place] [address] 728605 Physician Yardage Control Clerk Dermatology 03/19/25 documented as of this encounter
--- OUTSIDE RECORDS SUMMARY | 2025-06-10 11:37 | XMS_ITS | Encounter Summary ---
Author Organization [place] Address [address] [place] [address] 5[address] Care Team Providers Care Finishing Trimmer Name Role Phone Rio Jaquez MD Primary Care Provider Barry Kilpatrick MD Unavailable Michelle Henderson RN Unavailable [phone] Rio Jaquez MD Unavailable [phone] Jemima Jaramillo MD Unavailable Unavai Kelley Bautista RN Unavailable [phone] Sydnee Saleem MD Unavailable +[phone] Karlene Moya MD Unavailable [phone] Wilbert Quintero OD Unavailable +[phone] Rod Gauthier DPM Unavailable +[phone] Nallely Hogue RN Unavailable Unavailable Larisa Vargas RN Unavailable Unavailable Francisco Lott MD Unavailable +[phone] Greg Ortega MD Unavailable +[phone] Jan Mahmood MD Unavailable [phone] Brandt Quintana MD Unavailable +[phone] Jan Mahmood MD Unavailable Rio Jaquez [...] MD Unavailable Joesph Crowe MD Unavailable [phone] Joesph Crowe MD Unavailable +[phone] Adonay Haq MD Unavailable [phone] Denilson Srinivasan MD Unavailable [phone] Jason Alvares MD Unavailable Ruth RiddleM, Podiatry /Foot and Ankle Surgery Unavailable Omar Carmona MD Primary Care Provider [phone] Jignesh Mathias MD Unavailable Adonay Haq MD Unavailable [phone] Omar Carmona MD Unavailable [phone] Jason Alvares MD Unavailable Jignesh Mathias MD Unavailable Ayad Lopez PhD LP Unavailable +[phone] Gavi Nieto-C Unavailable [phone] Encounter Details Date Type Department Care Team (Late st Contact Info) Description 11/14/2021 [facility] [place] [facility] Hepatology Clinic [address] [address] Jayla Plaza, RN Folate deficiency [...] r organizations such as samaritan groups, unions, [employer] or athletic groups, or school groups? No [...] Answer Date Recorded PHQ-2 Score 2 08/27/2021 [facility] ional [...] Assigned at Female 09/12/2020 12:05 PM SENIOR DATA INTEGRATION DEVELOPER Legal Sex Female 3:26 AM SENIOR DATA INTEGRATION DEVELOPER Gender Identity Female 09/12/2020 12:05 PM SENIOR DATA INTEGRATION DEVELOPER Sexual Orientation Straight 12/19/2021 10 :44 [...] Contact Info) Description 06/13/2025 6:00 PM SENIOR DATA INTEGRATION DEVELOPER Ancillary Procedure [facility] Imaging Center CT Clinic [address] 1st [place] [address] Omar Carmona MD [address] [place] [address] [phone] 06/14/2025 4:00 PM SENIOR DATA INTEGRATION DEVELOPER Office Visit [facility] Primary Care Clinic [address] 4th [place] [address] Omar Carmona MD [address] [place] [address] 19583 06/15/2025 12:45 PM SENIOR DATA INTEGRATION DEVELOPER Therapy Visit [facility] 150 [place] [phone] Jason Alvares MD [address] [place] [address] 42266 Chaya Castillo OTR [facility] 150 [place] [address] 06/19/2025 10:30 AM SENIOR DATA INTEGRATION DEVELOPER Virtual Visit [facility] Primary Care Clinic [address] [place] [address] 4th [place] [phone] Omar Carmona MD [address] [place] [address] 595955 Gerson Santos [facility] 06/26/2025 11:00 AM SENIOR DATA INTEGRATION DEVELOPER Therapy Visit [address] [phone] Jason Alvares MD [address] [place] [address] 61528 Chaya Castillo OTR [facility] 150 [place] [address] 07/09/2025 12:45 PM SENIOR DATA INTEGRATION DEVELOPER Therapy Visit [facility] 150 [place] [phone] Jason Alvaers MD [address] [place] [address] 54[address] Chaya Castillo OTR [facility] 150 [place] [address] 07/18/2025 3:00 PM SENIOR DATA INTEGRATION DEVELOPER Office Visit [facility] Heart [address] [phone] Adonay Chapman APRN [facility] 500 [place] [address] 11/05/2025 12:30 PM CDT Lab [facility] Lab [address] [place] [phone] 11/05/2025 1:45 PM CDT Office Visit [facility] Dermatology [address] [phone] Gavi Nieto PA-C Dermatology [address] [place] [address] 57399 11/20/2025 10:30 AM CDT Virtual Visit [address] [address] Marquise Hanley MD [address] [place] [address] 46188 documented as of this encounter Goals Goal [...] Score: 5 08/27/19 22 9:25 AM SENIOR DATA INTEGRATION DEVELOPER documented as of this encounter Care Teams Finishing Trimmer Relationship Specialty Start Date End Date Rio Jaquez MD [address] [place] [address] 4 [place], [place] 155085 PCP - General Family Practice 12/02/10 07/13/24 Omar Carmona MD [address] [place] [address] 639465 PCP - General Family Medicine 07/14/24 Barry Kilpatrick MD [address] [place] [address] [id number] [place] [address] Neurology 07/19/14 Michelle Henderson RN Nurse Coordinator Neurology 07/19/14 Rio Jaquez MD [address] [place] [address] 33179 Family Practice 10/15/14 Jemima Jaramillo MD carpet cleaning technician 11/20/14 Kelley Chin, TANIA [address] 432575 Nurse Coordinator Cardiology 11/04/15 Sydnee Saleem MD [address] [place] [address] 508 [place], [place] 680925 Cardiology 11/04/15 Karlene Moya MD [address] [place] [address] 110425 Ophthalmology 06/24/17 Wilbert Quintero, OD [address] [place] [address] 079011 [phone] Optometry 06/24/17 Rod Gauthier DPM [address] [place] [address] 61951 Associate Professor Of Church Music Primary Podiatric Medicine 06/21/18 Nallely Hogue, RN Registered Nurse 02/20/19 11/23/22 Larisa Vargas, TANIA Specialty Blending Tank Tender Helper Cardiology 04/18/19 03/06/22 Francisco Lott MD [address] [place] [address] 56871 Assigned Rheumatology Provider 05/31/20 12/13/21 Greg Ortega MD [address] [place] [address] 06235 Assigned Surgical Provider 06/23/20 12/06/21 Jan Mahmood MD [address] [place] [address] 76058 Gastroenterology 11/05/20 Brandt Quintana MD [address] [place] [address] 19795 Resident 11/05/20 Jan Mahmood MD [address] [place] [address] 27932 Assigned Gastroenterology Provider 12/01/20 Rio Jaquez MD [address] [place] [address] 17723 Assigned PCP 11/17/20 09/30/24 Dom Eason MD [address] [place] [address] 95679 Internal Medicine 12/02/20 Jayla Plaza, RN Specialty Blending Tank Tender Helper Hepatology 01/09/21 02/13/24 Sydnee Saleem MD [address] [place] [address] [place] [address] 03361 Assigned Heart and Vascular Provider 02/02/21 07/24/22 Phan Coello MD Assigned Neuroscience Provider 02/21/21 11/22/21 [place] [address] [place] [address] 73481 Assigned Infectious Disease Provider 02/21/21 03/06/22 Dom Eason MD [address] [place] [address] 74107 Assigned Nephrology Provider 04/20/21 01/02/22 Jaimie Vernon, RN Specialty Blending Tank Tender Helper Cardiology 10/28/21 Ruth Riddle, DPM, Podiatry/Foot and Ankle Surgery [address] [address] Assigned Musculoskeletal Provider 11/30/21 09/30/23 Luis Arrington MD [address] [place] [address] 88622 Assigned Neuroscience Provider 11/23/21 01/02/22 Jason Alvares MD [address] [place] [address] 39437 Assigned Neuroscience Provider 01/03/22 05/15/22 Marquise Hanley MD [address] [place] [address] 72510 Endocrinology, Diabetes, and Metabolism 03/05/22 Vlad Ramey MD [address] [place] [address] 50726 Cardiovascular Disease 05/07/22 Joesph Crowe MD [address] [place] [address] 95463 Surgery 05/07/22 Luis Arrington MD [address] [place] [address] 11936 Assigned Neuroscience Provider 05/16/22 05/14/23 Michelle Padilla, TANIA Specialty Blending Tank Tender Helper Cardiology 07/03/22 Vlad Ramey MD [address] [place] [address] 13762 Assigned Heart and Vascular Provider 07/25/22 05/28/23 Marquise Hanley MD [address] [place] [address] 47245 Assigned Endocrinology Provider 08/15/22 Dom Eason MD [address] [place] [address] 53873 Assigned Nephrology Provider 11/28/22 02/19/23 Wagenr Oliver MD [address] [place] [address] Critical Care 12/15/22 Laura Epperson NP 717 [facility] 1932 [place] [address] Assigned Nephrology Provider 02/20/23 08/30/24 Thom Taveras MD [facility] [address] [place] [address] Assigned Cancer Care Provider 02/06/23 08/20/23 Joesph Crowe MD [address] [place] [address] 133615 Surgery 03/17/23 Joesph Crowe MD [address] [place] [address] 794575 Assigned Surgical Provider 04/03/23 09/30/24 Adonay Haq MD [address] [place] [address] 62340 Internal Medicine 06/14/23OctoberDenilson MD [address] [facility] [address] [place] [address] Assigned Heart and Vascular Provider 05/29/23 11/28/24 Jason Alvares MD 420 [facility] 295 [place] [address] Assigned Neuroscience Provider 05/15/23 11/28/24 Ruth Riddle DPM, Podiatry/Foot and Ankle Surgery [address] [place] [address] Assigned Musculoskeletal Provider 10/22/23 Jignesh Mathias MD [address] [place] [address] 655005 Gastroenterology 09/25/24 Adonay Haq MD [address] [place] [address] 55455 Assigned PCP 10/01/24 12/28/24 Omar Carmona MD [address] [place] [address] 064425 Assigned PCP 12/29/24 Jason Alvares MD [address] [place] [address] 019135 Assigned Neuroscience Provider 12/29/24 Jignesh Mathias MD [address] [place] [address] 10685 Assigned Surgical Provider 12/29/24 Ayad Lopez, PhD LP [address] [place] [address] 073855 Assigned Behavioral Health Provider 02/28/25 Gavi Nieto, PA-C [address] [place] [address] 51423 Physician Ceo & Board Director Dermatology 03/19/25 documented as of this encounter
--- OUTSIDE RECORDS SUMMARY | 2025-06-10 11:37 | XMS_ITS | Encounter Summary ---
Author Organization [place] Address [address] [place] [address]105 Care Team Providers Care Fashion Model Name Role Phone Rio Jaquez MD Primary Care Provider Barry Kilpatrick MD Unavailable Michelle Henderson I RN Unavailable [phone] Rio Jaquez MD Unavailable +[phone] Jemima Jaramillo MD Unavailable Unavai Kelley Bautista RN Unavailable +[phone] Sydnee Saleem MD Unavailable +[phone] Karlene Moya MD Unavailable +[phone] Wilbert Quintero OD Unavailable +[phone] Rod Gauthier DPM Unavailable +[phone] Jan Mahmood MD Unavailable +[phone] Brandt uQintana MD Unavailable Jan Mahmood MD Unavailable +[phone] Rio Jaquez MD Unavailable +[phone] Dom Eason MD Unavailable + [phone] [place], Jaimie RN Unavailable Unavailable Marquise Hnaley MD Unavailable +[phone] Vlad Ramey MD Unavailable +[phone] Joesph Crowe MD Unavailable + [phone] Michelle Padilla RN Unavailable Unavaila ble Marquise Hanley MD Unavailable +[phone] Wagner Oliver MD Unavailable +[phone] Laura Epperson NP Unavailable +[phone] Joesph Crowe MD Unavailable +[phone] Joesph Crowe MD Unavailable + [phone] Adonay Haq MD Unavailable [phone] Denilson Srinivasan MD Unavailable + [phone] Jason Alvares MD Unavailable Ruth Riddle DPM, Podiatry /Foot and Ankle Surgery Unavailable Omar Carmona MD Primary Care Provider [phone] Jignesh Mathias MD Unavailable Adonay Haq MD Unavailable [phone] Omar Carmona MD Unavailable +[phone] Jaosn Alvares MD Unavailable Jignesh Mathias MD Unavailable Ayad Lopez PhD LP Unavailable +[phone] Gavi Nieto PA-C Unavailable [phone] Encounter Details Date Type Department Care Team (Late st Contact Info) Description 06/12/2024 [facility] [address] [address] Jan Mahmood MD [address] [place] [address] Social History Tobacco Use Types Packs/Day Years [...] than three times a week 08/27/2021 Attends Anab[employer]ism Services Not on file 08/27 Do you [...] Answer Date Recorded PHQ-2 Score 2 02/28/2024 [facility] of Occupat ional [...] Sex Assigned at Female 09/12/2020 12:05 PM BED CONTROL SPECIALIST Legal Sex Female 3:26 AM BED CONTROL SPECIALIST Gender Identity Female 09/12/2020 12:05 PM BED CONTROL SPECIALIST Sexual Orientation Straight 12/19/2021 10 :44 AM CDT Occupation Industry Job Start Date Job End Date on disability for FMS Not on file Not on file Not on file disabled Not on file Not on file Not on file documented as of this encounter Plan of Treatment Upcoming Encounters Date Type Department Care Team (Late st Contact Info) Description 06/13/2025 6:00 PM BED CONTROL SPECIALIST Ancillary Procedure [facility] CT Clinic [address] 1st [place] [address] Omar Carmona MD [address] [place] [address] 06/14/2025 4:00 PM BED CONTROL SPECIALIST Office Visit [facility] Primary Care [address] [phone] Omar Carmona MD [address] [place] [address] 511365 06/15/2025 12:45 PM BED CONTROL SPECIALIST Therapy [facility] [address] [facility] [place] [phone] Jason Alvares MD [address] [place] [address] Chaya Castillo, OTR [facility] 150 [place], [place] 665957 06/19/2025 10:30 AM BED CONTROL SPECIALIST Virtual Visit [facility] Primary Care [address] [phone] Omar Carmona MD [address] [place] [address] Gerson Santos [facility] 06/26/2025 11:00 AM BED CONTROL SPECIALIST Therapy Visit [facility] [address] [place] [phone] Jason Alvares MD [address] [place] [address] 024785 Chaya Castillo, OTR [facility] [place] [address] [place] [address] 07/09/2025 12:45 PM BED CONTROL SPECIALIST Therapy Visit [facility] 150 [place] [phone] Jason Alvares MD 420 [facility] 295 [place] [address] Chaya Castillo, OTR [facility] 150 [place] [address] 07/18/2025 3:00 PM BED CONTROL SPECIALIST Office Visit [facility] Heart [address] [phone] Adonay Chapman APRN [facility] 500 [place], [place] 441615 11/05/2025 12:30 PM CDT Lab [facility] Lab [address] [place] [phone] 11/05/2025 1:45 PM CDT Office Visit [facility] Dermatology [address] [place] [phone] Gavi Nieto PANavinC Dermatology [address] [place] [address] 11/20/2025 10:30 AM CDT Virtual Visit [address] [phone] Marquise Hanley MD [address] [place] [address] 61393 documented as of this encounter Goals Goal [...] documented as of this encounter Care Teams Fashion Model Relationship Specialty Start Date End Date Rio Jaquez MD [address] [place] [address] 4 [place], [place] 733335 PCP - General Family Practice 12/02/10 07/13/24 Omar Carmona MD [address] [place] [address] 922515 PCP - General Family Medicine 07/14/24 Barry Kilpatrick MD [address] [place] [address] [id number] [place], [place] 454605 Neurology 07/19/14 Michelle Henderson I, RN Nurse Coordinator Neurology 07/19/14 Rio Jaquez MD [address] [place] [address] 376415 Family Practice 10/15/14 Jemima Jaramillo MD dupligraph operator 11/20/14 Kelley Chin, TANIA [facility] [address] [place] [address] 132045 Nurse Coordinator Cardiology 11/04/15 Sydnee Saleem MD [address] [place] [address] 508 [place], [place] 843375 Cardiology 11/04/15 Karlene Moya MD [address] [place] [address] 802915 Ophthalmology 06/24/17 Wilbert Quintero OD [address] [place] [address] 51442 Optometry 06/24/17 Rod Gauthier DPM [address] [place] [address] 716395 Railway [employer] Primary Podiatric Medicine 06/21/18 Jan Mahmood MD [address] [place] [address] 994195 Gastroenterology 11/05/20 Brantd Quintana MD [address] [place] [address] 19147 Resident 11/05/20 Jan Mahmood MD [address] [place] [address] 342485 Assigned Gastroenterology Provider 12/01/20 Rio Jaquez MD [address] [place] [address] 774395 Assigned PCP 11/17/20 09/30/24 Dom Eason MD [address] 712524 Internal Medicine 12/02/20 Jaimie Vernon, RN Specialty Bench Mover Cardiology 10/28/21 Marquise Hanley MD [address] [place] [address] 04646 Endocrinology, Diabetes, and Metabolism 03/05/22 Vlda Ramey MD [address] [place] [address] 80813 Cardiovascular Disease 05/07/22 Joesph Crowe MD [address] [place] [address] 51303 Surgery 05/07/22 Michelle Padilla, RN Specialty Bench Mover Cardiology 07/03/22 Marquise Hanley MD [address] [place] [address] 25053 Assigned Endocrinology Provider 08/15/22 Wagner Oliver MD [address] [place] [address] Critical Care 12/15/22 Laura Epperson NP [address] [place] [address] 1932 [place] [address] Assigned Nephrology Provider 02/20/23 08/30/24 Joesph Crowe MD [address] [place] [address] 94886 Surgery 03/17/23 Joesph Crowe MD [address] [place] [address] 19966 Assigned Surgical Provider 04/03/23 09/30/24 Adonay Haq MD 909 [place] [address] Internal Medicine 06/14/23OctoberDenilson MD [address] [place] [address] Assigned Heart and Vascular Provider 05/29/23 11/28/24 Jason Alvares MD [address] [place] [address]67[address] Assigned Neuroscience Provider 05/15/23 11/28/24 Ruth Riddle DPM, Podiatry/Foot and Ankle Surgery [address] [place], [place] 663967 Assigned Musculoskeletal Provider 10/22/23 Jignesh Mathias MD [address] [place] [address]457 Gastroenterology 09/25/24 Adonay Haq MD [address] [place] [address] 93075 Assigned PCP 10/01/24 12/28/24 Omar Carmona MD [address] [place] [address] 87263 Assigned PCP 12/29/24 Jason Alvares MD [address] [place] [address] Assigned Neuroscience Provider 12/29/24 Jignesh Mathias MD [address] [place] [address] 70574 Assigned Surgical Provider 12/29/24 Ayad Lopez, PhD LP [address] [place] [address] 22733 Assigned Behavioral Health Provider 02/28/25 Gavi Nieto PANavinC [address] [place] [address] 41504 Physician Breakfast Cook Dermatology 03/19/25 documented as of this encounter
--- OUTSIDE RECORDS SUMMARY | 2025-06-10 11:37 | XMS_ITS | Encounter Summary ---
Author Organization [place] Address [address] [place] [address] 30473 Care Team Providers Care Manager Clinic Name Role Phone Rio Jaquez MD Primary Care Provider Barry Kilpatrick MD Unavailable Michelle Henderson RN Unavailable [phone] Rio Jaquez MD Unavailable +[phone] Jemima Jaramillo MD Unavailable Unavai Kelley Bautista RN Unavailable +[phone] Sydnee Saleem MD Unavailable +[phone] Karlene Moya MD Unavailable +[phone] Wilbert Quintero OD Unavailable +[phone] Rod Gauthier DPM Unavailable +[phone] Nallely Hogue RN Unavailable Unavailable Larisa Vargas RN Unavailable Unavailable Francisco Lott MD Unavailable +[phone] Greg Ortega MD Unavailable +[phone] Jan Mahmood MD Unavailable +[phone] Brandt Quintana MD Unavailable +[phone] Jan Mahmood MD Unavailable Rio Jaquez MD Unavailable +[phone] Dom Eason MD Unavailable Jayla Plaza RN Unavailable Sydnee Saleem MD Unavailable Cristian Barragan MD Unavailable [phone] Dmo Eason MD Unavailable + [phone] Jaimie Vernon RN Unavailable Unavailable Ruth Riddel DPM, Podiatry /Foot and Ankle Surgery Unavailable Luis Arrington MD Unavailable +[phone] Jason Alvares MD Unavailable Marquies [place] MD Unavailable +[phone] Vlad Ramey MD Unavailable +[phone] Joesph Crowe MD Unavailable +[phone] Luis Arrington MD Unavailable +[phone] Michelle Padilla RN Unavailable Unavaila ble Vlad Ramey MD Unavailable +[phone] Marquise [place] MD Unavailable +[phone] Dom Eason MD Unavailable Wagner Oliver MD Unavailable + [phone] Laura Epperson NP Unavailable [phone] Thom Taveras MD Unavailable +[phone] Joesph Crowe MD Unavailable +[phone] Joesph Crowe MD Unavailable +[phone] Adonay aHq MD Unavailable [phone] OctoberDenilson MD Unavailable +[phone] Jason Alvares MD Unavailable Ruth RiddleM, Podiatry /Foot and Ankle Surgery Unavailable Omar Carmona MD Primary Care Provider Jignesh Mathias MD Unavailable Adonay Haq MD Unavailable Omar Carmona MD Unavailable Jason Alvares MD Unavailable Jignesh Mathias MD Unavailable Ayad Lopez PhD LP Unavailable [phone] Gavi Nieto-Keisha Unavailable +[phone] Reason for Referral * Diagnostic Imaging Dexa (Routine) - Closed Specialty Diagnoses / Procedures Referred By Good zhu Referred To Contact Diagnoses Vitamin D deficiency Bony abnormality Asymptomatic menopausal state Procedures Dexa hip/pelvis/spine* Rio Jaquez MD [address] [place] [address] 68359 Phone: tel: fax: Referral ID Status Reason Start Date Expiration Date Visits Re quested Visits Authorized [id number] Closed 11/28/2021 11/28/2022 1 1 Encounter Details Date Type Department Care Team (Late st Contact Info) Description 11/25/2021 [facility] [place] [facility] [address] [place] [address] Rio Jaquez MD [address] [place] [address]455 Vitamin D deficiency (Primary Dx); Bony [...] Answer Date Recorded PHQ-2 Score 2 08/27/2021 [facility] of Occupat ional Health - Occupational Stress [...] Sex Assigned at Female 09/12/2020 12:05 PM FOOD SERVICE AMBASSADOR Legal Sex Female 3:26 AM FOOD SERVICE AMBASSADOR Gender Identity Female 09/12/2020 12:05 PM FOOD SERVICE AMBASSADOR Sexual Orientation Straight 12/19/2021 10 :44 AM [...] st Contact Info) Description 06/13/2025 6:00 PM FOOD SERVICE AMBASSADOR Ancillary Procedure [facility] CT Clinic [address] [place] [phone] Omar Carmona MD [address] [place] [address] 145265 06/14/2025 4:00 PM FOOD SERVICE AMBASSADOR Office Visit [facility] Primary Care [address] [address] Omar Carmona MD [address] [place] [address] 159545 06/15/2025 12:45 PM FOOD SERVICE AMBASSADOR Therapy Visit [facility] 150 [place] [phone] Jason Alvares MD [address] [place] [address] 438305 Chaya Castillo, OTR [facility] 150 [place], [place] 768247 06/19/2025 10:30 AM FOOD SERVICE AMBASSADOR Virtual Visit [facility] Care [address] [address] Omar Carmona MD [address] [place] [address] [phone] Gerson Santos RPH 06/26/2025 11:00 AM FOOD SERVICE AMBASSADOR Therapy Visit [facility] 150 [place] [phone] Jason Alvares MD [address] [place] [address] Chaya Castillo OTR [address] [address] 07/09/2025 12:45 PM FOOD SERVICE AMBASSADOR Therapy Visit [facility] [address] [phone] Jason Alvares MD [address] [place] [address] Chaya Castillo OTR [address] [address] 07/18/2025 3:00 PM FOOD SERVICE AMBASSADOR Office Visit [facility] Heart [address] [phone] Adonay Chapman APRN [address] 375485 11/05/2025 12:30 PM CDT Lab [facility] Lab [address] [phone] 11/05/2025 1:45 PM CDT Office Visit [facility] Dermatology [address] [place] [phone] Gavi Nieto PA-C Dermatology [address] [place] [address]26 11/20/2025 10:30 AM CDT Virtual Visit [address] [phone] Marquise Hanley MD [address] [place] [address] [phone] documented as of this encounter Goals Goal Patient Goal Type Associated Problems Recent Progress Patient-Stated? 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 Impression The most negative and valid T-score [...] correlation recommended Technical quality Satisfactory. Principal result patient financial services coordinator: Narendra Dickinson MD, [facility] Division of Endocrinology and Diabetes Department of [...] LSC = least significant changes at [facility] (historical data) AP spine = [...] Total Score: 5 08/27/19 22 9:25 AM FOOD SERVICE AMBASSADOR documented as of this encounter Care Teams Manager Clinic Relationship Specialty Start Date End Date Rio Jaquez MD [address] [place] [address]77 PCP - General Family Practice 12/02/10 07/13/24 Omar Carmona MD [address] [place] [address]1212 PCP - General Family Medicine 07/14/24 Barry Kilpatrick MD [address] [place] [address] [id number] [place] [address] Neurology 07/19/14 Michelle Henderson I, RN Nurse Coordinator Neurology 07/19/14 Rio Jaquez MD [address] [place] [address] 89652 Family Practice 10/15/14 Jemima Jaramillo MD air quality consultant 11/20/14 Kelley Chin, TANIA [place] [phone] [place] [address] 47749 Nurse Coordinator Cardiology 11/04/15 Sydnee Saleem MD 420 [facility] 508 [place] [address] Cardiology 11/04/15 Karlene Moya MD [address] [place] [address] 045405 Ophthalmology 06/24/17 Wilbert Quintero, OD [address] [place] [address] 556755 Optometry 06/24/17 Rod Gauthier DPM [address] [place] [address] [phone] Clinical Trainer Primary Podiatric Medicine 06/21/18 Nallely Hogue, TANIA Registered Nurse 02/20/19 11/23/22 Larisa Vargas, TANIA Specialty Chief Of Field Operations Cardiology 04/18/19 03/06/22 Francisco Lott MD [address] [place] [address] 88 [place], [place] 581505 Assigned Rheumatology Provider 05/31/20 12/13/21 Greg Ortega MD [address] [place] [address] 792255 Assigned Surgical Provider 06/23/20 12/06/21 Jan Mahmood MD [address] [place], [place] [address]B 2A [place], [place] 562105 Gastroenterology 11/05/20 Brandt Quintana MD 1414 [place] [address] Resident 11/05/20 Jan Mahmood MD 516 [facility] [address] [place] [address] Assigned Gastroenterology Provider 12/01/20 Rio Jaquez MD 909 [facility] 4 [place], [place] 679325 Assigned PCP 11/17/20 09/30/24 Dom Eason MD [address] [place] [address]370 Internal Medicine 12/02/20 Jayla Plaza, RN Specialty Chief Of Field Operations Hepatology 01/09/21 02/13/24 Sydnee Saleem MD [address] [place] [address] [phone] Assigned Heart and Vascular Provider 02/02/21 07/24/22 Cristian Barragan MD [address] [place] [address] 92832 Assigned Infectious Disease Provider 02/21/21 03/06/22 Dom Eason MD [address] [place] [address] 61997 Assigned Nephrology Provider 04/20/21 01/02/22 Jaimie Vernon, RN Specialty Chief Of Field Operations Cardiology 10/28/21 Ruth Riddle DPM, Podiatry/Foot and Ankle Surgery [address] [address] Assigned Musculoskeletal Provider 11/30/21 09/30/23 Luis Arrington MD [address] [place] [address] 34156 Assigned Neuroscience Provider 11/23/21 01/02/22 Jason Alvares MD [address] [place] [address] 030065 Assigned Neuroscience Provider 01/03/22 05/15/22 Marquise Hanley MD [address] [place] [address] 28963 Endocrinology, Diabetes, and Metabolism 03/05/22 Vlad Ramey MD [address] [place] [address] [phone] Cardiovascular Disease 05/07/22 Joesph Crowe MD [address] [place] [address] 01762 Surgery 05/07/22 Luis Arrington MD [address] [place] [address] 95942 Assigned Neuroscience Provider 05/16/22 05/14/23 Michelle Padilla RN Specialty Chief Of Field Operations Cardiology 07/03/22 Vlad Ramey MD [address] [place] [address] 352695 Assigned Heart and Vascular Provider 07/25/22 05/28/23 Marquise Hanley MD [address] [place] [address] 00733 Assigned Endocrinology Provider 08/15/22 Dom Eason MD 717 [facility] [address] [address] [place] [address] Assigned Nephrology Provider 11/28/22 02/19/23 Wagner Oliver MD [address] [place] [address] Critical Care 12/15/22 Laura Epperson NP [address] [place] [address] 1932 [place] [address] Assigned Nephrology Provider 02/20/23 08/30/24 Thom Taveras MD [address] [place] [address], R105 [place] [address] Assigned Cancer Care Provider 02/06/23 08/20/23 Joesph Crowe MD [address] [place] [address] 89731 Surgery 03/17/23 Joesph Crowe MD [address] [place] [address] 33950 Assigned Surgical Provider 04/03/23 09/30/24 Adonay Haq MD [address] [place] [address] 51252 Internal Medicine 06/14/23OctoberDenilson MD [address] [place] [address] Assigned Heart and Vascular Provider 05/29/23 11/28/24 Jason Alvares MD [address] [place] [address] 01298 Assigned Neuroscience Provider 05/15/23 11/28/24 Ruth Riddle DPM, Podiatry/Foot and Ankle Surgery [address] [place] [address] Assigned Musculoskeletal Provider 10/22/23 Jignesh Mathias MD [address] [place] [address] 90756 Gastroenterology 09/25/24 Adonay Haq MD [address] [place] [address] 48575 Assigned PCP 10/01/24 12/28/24 Omar Carmona MD [address] [place] [address] 66171 Assigned PCP 12/29/24 Jason Alvares MD [address] [place] [address] 29220 Assigned Neuroscience Provider 12/29/24 Jignesh Mathias MD [address] [place] [address] 83994 Assigned Surgical Provider 12/29/24 Ayad Lopez, PhD LP [address] [place] [address] 55455 Assigned Behavioral Health Provider 02/28/25 Gavi Nieto PA-C [address] [place] [address] 55455 Physician X Ray Equipment Tester Dermatology 03/19/25 documented as of this encounter
--- OUTSIDE RECORDS SUMMARY | 2025-06-10 11:37 | XMS_ITS | Encounter Summary ---
Author Organization [place] Address [address] [place] [address] Care Team Providers Care Spud Sorter Name Role Phone Rio Jaquez MD Primary Care Provider Barry Kilpatrick MD Unavailable Michelle Henderson RN Unavailable [phone] Rio Jaquez MD Unavailable +[phone] Jemima Jaramillo MD Unavailable Unavai Kelley Bautista RN Unavailable +[phone] Sydnee Saleem MD Unavailable +[phone] Karlene Moya MD Unavailable +[phone] Wilbert Quintero OD Unavailable +[phone] Rod Gauthier DPM Unavailable +[phone] Nallely Hogue RN Unavailable Unavailable Larisa Vargas RN Unavailable Unavailable Francisco Lott MD Unavailable +[phone] Greg Ortega MD Unavailable +[phone] Jan Mahmood MD Unavailable +[phone] Brandt Quintana MD Unavailable +[phone] Jan Mahmood MD Unavailable Rio Jaquez [...] MD Unavailable Joesph Crowe MD Unavailable +[phone] Joesph Crowe MD Unavailable +[phone] Adonay Haq MD Unavailable [phone] Denilson Srinivasan MD Unavailable +[phone] Jason Alvares MD Unavailable Ruth RiddleM, Podiatry /Foot and Ankle Surgery Unavailable Omar Carmona MD Primary Care Provider [phone] Jignesh Mathias MD Unavailable Adonay Haq MD Unavailable [phone] Omar Carmona MD Unavailable +[phone] Jason Alvares MD Unavailable Jignesh Mathias MD Unavailable Ayad Lopez PhD LP Unavailable +[phone] Gavi Nieto-C Unavailable +[phone] Encounter Details Date Type Department Care Team (Late st Contact Info) Description 11/14/2021 [facility] [address] [address] [facility] Social History Tobacco Use Types Packs/Day Years [...] Answer Date Recorded PHQ-2 Score 2 08/27/2021 [facility] Occup[facility] [...] Sex Assigned at Female 09/12/2020 12:05 PM SHANK SANDER Legal Sex Female 3:26 AM SHANK SANDER Gender Identity Female 09/12/2020 12:05 PM SHANK SANDER Sexual Orientation Straight 12/19/2021 10 :44 AM [...] st Contact Info) Description 06/13/2025 6:00 PM SHANK SANDER Ancillary Procedure [facility] CT [facility] [address] [place] [address] Omar Carmona MD [address] [place] [address] 365825 06/14/2025 4:00 PM SHANK SANDER Office Visit [facility] [address] [place] [address] Omar Carmona MD [address] [place] [address] 06/15/2025 12:45 PM SHANK SANDER Therapy [facility] [place] [phone] Jason Alvares MD [address] [place] [address] Chaya Castillo OTR [facility] [address] [place] [address] 06/19/2025 10:30 AM SHANK SANDER Virtual Visit [facility] [address] [place] [address] 4th [place] [phone] Omar Carmona MD [address] [place] [address] 904105 Gerson Santos [facility] 06/26/2025 11:00 AM SHANK SANDER Therapy Visit [facility] 150 [place] [phone] Jason Alvares MD [address] [place] [address] Chaya Castillo OTR [facility] [address] [place] [address] 07/09/2025 12:45 PM SHANK SANDER [facility] [address] [place] [phone] Jason Alvares MD [address] [place] [address] Chaya Castillo OTR [facility] [address] [place] [address] 07/18/2025 3:00 PM SHANK SANDER Office Visit [facility] [address] [phone] Adonay Chapman APRN [facility] [address] [place] [address] 11/05/2025 12:30 PM CDT Lab [facility] [address] [place] [phone] 11/05/2025 1:45 PM CDT Office Visit [facility] Dermatology [address] [place] [phone] Gavi Nieto PA-C Dermatology [address] [place] [address] 11/20/2025 10:30 AM CDT Virtual Visit [address] [phone] Marquise Hanley MD [address] [place] [address] [phone] documented as of this encounter Goals Goal [...] Total Score: 5 08/27/19 22 9:25 AM SHANK SANDER documented as of this encounter Care Teams Spud Sorter Relationship Specialty Start Date End Date Rio Jaquez MD [address] [place] [address] PCP - General Family Practice 12/02/10 07/13/24 Omar Carmona MD [address] [place] [address] PCP - General Family Medicine 07/14/24 Barry Kilpatrick MD [address] [place] [address] [id number] [place], [place] 682895 Neurology 07/19/14 Michelle Henderson RN Nurse Coordinator Neurology 07/19/14 Rio Jaquez MD [address] [place] [address] 540865 Family Practice 10/15/14 Jemima Jaramillo MD business continuity coordinator 11/20/14 Kelley Chin, TANIA [address] 583305 Nurse Coordinator Cardiology 11/04/15 Sydnee Saleem MD [address] [place] [address] 508 [place], [place] 773685 Cardiology 11/04/15 Karlene Moya MD [address] [place] [address] Ophthalmology 06/24/17 Wilbert Quintero, OD [address] [place] [address] [phone] Optometry 06/24/17 Rod Gauthier DPM [address] [place] [address] 19060 Kiln Stacker Primary Podiatric Medicine 06/21/18 Nallely Hogue, RN Registered Nurse 02/20/19 11/23/22 Larisa Vargas, TANIA Specialty Pesticide Use Medical Coordinator Cardiology 04/18/19 03/06/22 Francisco Lott MD [address] [place] [address] Assigned Rheumatology Provider 05/31/20 12/13/21 Greg Ortega MD [address] [place] [address] 29387 Assigned Surgical Provider 06/23/20 12/06/21 Jan Mahmood MD [address] [place] [address] Gastroenterology 11/05/20 Brandt Quintana MD [address] [place] [address] Resident 11/05/20 Jan Mahmood MD [address] [place] [address] 14894 Assigned Gastroenterology Provider 12/01/20 Rio Jaquez MD [address] [place] [address] 07832 Assigned PCP 11/17/20 09/30/24 Dom Eason MD [address] [place] [address] 353 [place] [address] Internal Medicine 12/02/20 Jayla Plaza, RN Specialty Pesticide Use Medical Coordinator Hepatology 01/09/21 02/13/24 Sydnee Saleem MD 6550 [facility] [address] [place] [address] Assigned Heart and Vascular Provider 02/02/21 07/24/22 Phan Coello MD Assigned Neuroscience Provider 02/21/21 11/22/21 Cristian Barragan MD 2945 [place] [address] Assigned Infectious Disease Provider 02/21/21 03/06/22 Dom Eason MD [address] [place] [address] 353 [place] [address] Assigned Nephrology Provider 04/20/21 01/02/22 Jaimie [place], RN Specialty Pesticide Use Medical Coordinator Cardiology 10/28/21 Ruth Riddle, DPM, Podiatry/Foot and Ankle Surgery [address] [place] [address] [address] Assigned Musculoskeletal Provider 11/30/21 09/30/23 Luis Arrington MD [address] [place] [address] Assigned Neuroscience Provider 11/23/21 01/02/22 Jason Alvares MD [address] [place] [address] 295 [place] [address] Assigned Neuroscience Provider 01/03/22 05/15/22 Marquise Hanley MD [address] [place] [address] 15353 Endocrinology, Diabetes, and Metabolism 03/05/22 Vlad Ramey MD [address] [place] [address] 80401 Cardiovascular Disease 05/07/22 Joesph Crowe MD [address] [place] [address]46[address] Surgery 05/07/22 Luis Arrington MD [address] [place] [address] 94[address] Assigned Neuroscience Provider 05/16/22 05/14/23 Michelle Padilla, TANIA Specialty Pesticide Use Medical Coordinator Cardiology 07/03/22 Vlad Ramey MD [address] [place] [address] 82091 Assigned Heart and Vascular Provider 07/25/22 05/28/23 Marquise Hanley MD [address] [place] [address]47 Assigned Endocrinology Provider 08/15/22 Dom Eason MD [address] [place] [address] Assigned Nephrology Provider 11/28/22 02/19/23 Wagner Oliver MD [address] [place] [address] Critical Care 12/15/22 Laura Epperson, COLOR MAKING SUPERVISOR 717 [facility] [address] [place] [address] Assigned Nephrology Provider 02/20/23 08/30/24 Thom Taveras MD [address], [address] [place] [address] Assigned Cancer Care Provider 02/06/23 08/20/23 Joesph Crowe MD [address] [place] [address] Surgery 03/17/23 Joesph Crowe MD [address] [place] [address] Assigned Surgical Provider 04/03/23 09/30/24 Adonay Haq MD 909 [place] [address] Internal Medicine 06/14/23OctoberDenilson MD [address] [facility] [address] [place] [address] Assigned Heart and Vascular Provider 05/29/23 11/28/24 Jason Alvares MD 420 [facility] [address] [place] [address] Assigned Neuroscience Provider 05/15/23 11/28/24 Ruht Riddle DPM, Podiatry/Foot and Ankle Surgery [address] RODRIGUEZ [address] [place] [address] 36[address] Assigned Musculoskeletal Provider 10/22/23 Jignesh Mathias MD [address] [place] [address] Gastroenterology 09/25/24 Adonay Haq MD [address] [place] [address] 614915 Assigned PCP 10/01/24 12/28/24 Omar Carmona MD [address] [place] [address] 118755 Assigned PCP 12/29/24 Jason Alvares MD [address] [place] [address] 789285 Assigned Neuroscience Provider 12/29/24 Jignesh Mathias MD [address] [place] [address] 79423 Assigned Surgical Provider 12/29/24 Ayad Lopez, PhD LP [address] [place] [address] 383605 Assigned Behavioral Health Provider 02/28/25 Gavi Nieto PA-C [address] [place] [address] 478845 Physician Nuclear Weapons Custodian Dermatology 03/19/25 documented as of this encounter
--- OUTSIDE RECORDS SUMMARY | 2025-06-10 11:37 | XMS_ITS | Encounter Summary ---
Author Organization [place] Address [address] [place] [address] Care Team Providers Care Owner Operator Tanker Truck Driver Name Role Phone Rio Jaquez MD Primary Care Provider + [phone] Barry Kilpatrick MD Unavailable Michelle Henderson RN Unavailable [phone] Rio Jaquez MD Unavailable +[phone] Jemima Jaramillo MD Unavailable Unavai Kelley Bautista RN Unavailable [phone] Sydnee Saleem MD Unavailable [phone] Karlene Moya MD Unavailable [phone] Wilbert Quintero OD Unavailable +[phone] Rod GauthierM Unavailable +[phone] Nallely Hogue RN Unavailable Unavailable Larisa Vargas RN Unavailable Unavailable Jan Mahmood MD Unavailable +[phone] Brandt Quintana MD Unavailable [phone] Jan Mahmood MD Unavailable +[phone] Rio Jaquez MD Unavailable +[phone] Dom Eason MD Unavailable +[phone] Jayla Plaza RN Unavailable +[phone] Sydnee [...] Unavailable +[phone] Dom Eason MD Unavailable +[phone] Wagner Oliver MD Unavailable +[phone] Laura Epperson NP Unavailable [phone] Thom Taveras MD Unavailable +[phone] Joesph Crowe MD Unavailable +[phone] Joesph Crowe MD Unavailable + [phone] Adonay Haq MD Unavailable +[phone] Denilson Srinivasan MD Unavailable + [phone] Jason Alvares MD Unavailable Ruth Riddle DPM, Podiatry /Foot and Ankle Surgery Unavailable Omar Carmona MD Primary Care Provider [phone] Jignesh Mathias MD Unavailable Adonay Haq MD Unavailable [phone] Omar Carmona MD Unavailable [phone] Jason Alvares MD Unavailable Jignesh Mathias MD Unavailable Ayad Lopez PhD LP Unavailable +[phone] Gavi Nieto PA-C Unavailable +[phone] Encounter Details Date Type Department Care Team (Late st Contact Info) Description 01/14/2022 [facility] Medical Advice Initial Department [address] [place] [phone] Lizbeth Lopes Social History Tobacco Use Types [...] Assigned at Female 09/12/2020 12:05 PM JET ENGINE MECHANIC Legal Sex Female 3:26 AM JET ENGINE MECHANIC Gender Identity Female 09/12/2020 12:05 PM JET ENGINE MECHANIC Sexual Orientation Straight 12/19/2021 10 :44 [...] st Contact Info) Description 06/13/2025 6:00 PM JET ENGINE MECHANIC Ancillary Procedure [facility] CT Clinic [address] [phone] Omar Carmona MD [address] [place] [address] [phone] 06/14/2025 4:00 PM JET ENGINE MECHANIC Office Visit [facility] [address] [place] [phone] Omar Carmona MD [address] [place] [address] 244005 06/15/2025 12:45 PM JET ENGINE MECHANIC Therapy Visit [facility] Rehabilitation Services [address] [phone] Jason Alvares MD [address] [place] [address] [phone] Chaya Castillo OTR [facility] 150 [place] [address] 06/19/2025 10:30 AM JET ENGINE MECHANIC Virtual Visit [facility] [address] [place] [address] 4th [place] [phone] Omar Carmona MD [address] [place] [address] [phone] Gerson Santos, [facility] 06/26/2025 11:00 AM JET ENGINE MECHANIC Therapy Visit [address] [phone] Jason Alvares MD [address] [place] [address] 756565 Chaya Castillo [facility]TR [facility] 150 [place] [address] 07/09/2025 12:45 PM JET ENGINE MECHANIC Therapy Visit [address] [phone] Jason Alvares MD [address] [place] [address] 242675 Chaya Castillo OTR [facility] 150 [place] [address] 07/18/2025 3:00 PM JET ENGINE MECHANIC Office Visit [facility] Heart Clinic [address] [phone] Adonay Chapman APRN [address] 922325 11/05/2025 12:30 PM CDT Lab [facility] Lab [address] [place] [address] 11/05/2025 1:45 PM CDT Office Visit [facility] Dermatology Clinic [address] [place] [phone] Gavi Nieto PA-C Dermatology [address] [place] [address] 137[address] 11/20/2025 10:30 AM CDT Virtual Visit [address] [address] Marquise Hanley MD [address] [place] [address] documented as of this encounter Goals Goal [...] Total Score: 5 08/27/19 22 9:25 AM JET ENGINE MECHANIC documented as of this encounter Care Teams Owner Operator Tanker Truck Driver Relationship Specialty Start Date End Date Rio Jaquez MD [address] [place] [address] 46429 PCP - General Family Practice 12/02/10 07/13/24 Omar Carmona MD [address] [place] [address] 78293 PCP - General Family Medicine 07/14/24 Barry Kilpatrick MD [address] [place] [address] [id number] [place], [place] 821935 Neurology 07/19/14 Michelle Henderson I, RN Nurse Coordinator Neurology 07/19/14 Rio Jaquez MD [address] [place] [address] 4 [place], [place] 842495 Family Practice 10/15/14 Jemima Jaramillo MD project manager retail 11/20/14 Kelley Chin RN [address] 930125 Nurse Coordinator Cardiology 11/04/15 Sydnee Saleem MD [address] [place] [address] 508 [place], [place] [phone] Cardiology 11/04/15 Karlene Moya MD [address] [place] [address] 087245 Ophthalmology 06/24/17 Wilbert Quintero, OD [address] [place] [address] 855815 Optometry 06/24/17 Rod Gauthier DPM [address] [place] [address] 513295 Inventory Assistant Primary Podiatric Medicine 06/21/18 Nallely Hogue, RN Registered Nurse 02/20/19 11/23/22 Larisa Vargas, TANIA Specialty Staff Submarine Warfare Officer Cardiology 04/18/19 03/06/22 Jan Mahmood MD [address] [facility] [place] [address] Gastroenterology 11/05/20 Brandt Quintana MD [address] [place] [address] Resident 11/05/20 Jan Mahmood MD [address] [facility] 2A [place] [address] Assigned Gastroenterology Provider 12/01/20 Rio Jaquez MD 909 [facility] 4 [place] [address] Assigned PCP 11/17/20 09/30/24 Dom Eason MD 717 [facility]EL 353 [place], [place] 517714 Internal Medicine 12/02/20 Jayla Plaza, RN Specialty Staff Submarine Warfare Officer Hepatology 01/09/21 02/13/24 Sydnee Saleem MD [address] [place] [address] [phone] Assigned Heart and Vascular Provider 02/02/21 07/24/22 Cristian Barragan MD [address] [place] [address] Assigned Infectious Disease Provider 02/21/21 03/06/22 Jaimie [place], TANIA Specialty Staff Submarine Warfare Officer Cardiology 10/28/21 Ruth Riddle DPM, Podiatry/Foot and Ankle Surgery [address] [place] [address] [address] Assigned Musculoskeletal Provider 11/30/21 09/30/23 Jason Alvares MD [address] [place] [address]90 Assigned Neuroscience Provider 01/03/22 05/15/22 Marquise Hanley MD [address] [place] [address] 45065 Endocrinology, Diabetes, and Metabolism 03/05/22 Vlad Ramey MD [address] [place] [address] 922245 Cardiovascular Disease 05/07/22 Joesph Crowe MD [address] [place] [address]13 Surgery 05/07/22 Luis Arrington MD [address] [place] [address] 56[address] Assigned Neuroscience Provider 05/16/22 05/14/23 Michelle Padilla, TANIA Specialty Staff Submarine Warfare Officer Cardiology 07/03/22 Vlad Ramey MD [address] [place] [address] 002625 Assigned Heart and Vascular Provider 07/25/22 05/28/23 Marquise Hanley MD [address] [place] [address] 0[address] Assigned Endocrinology Provider 08/15/22 Dom Eason MD 717 [facility] [address] [place] [address] Assigned Nephrology Provider 11/28/22 02/19/23 Wagner Oliver MD [address] [place] [address] Critical Care 12/15/22 Laura Epperson NP 717 [facility] [address] [place] [address] Assigned Nephrology Provider 02/20/23 08/30/24 Thom Taveras MD [facility] [address] [place] [address] Assigned Cancer Care Provider 02/06/23 08/20/23 Joesph Crowe MD [address] [place] [address] 42018 Surgery 03/17/23 Joesph Crowe MD [address] [place] [address] 71137 Assigned Surgical Provider 04/03/23 09/30/24 Adonay Haq MD [address] [place] [address] 13317 Internal Medicine 06/14/23OctoberDenilson MD [address] [facility] [address] [place] [address] Assigned Heart and Vascular Provider 05/29/23 11/28/24 Jason Alvares MD [address] [place] [address] 15747 Assigned Neuroscience Provider 05/15/23 11/28/24 Ruth Riddle DPM, Podiatry/Foot and Ankle Surgery [address] [place] [address] Assigned Musculoskeletal Provider 10/22/23 Jignesh Mathias MD [address] [place] [address] Gastroenterology 09/25/24 Adonay Haq MD [address] [place] [address] 06017 Assigned PCP 10/01/24 12/28/24 Omar Carmona MD [address] [place] [address] 19178 Assigned PCP 12/29/24 Jason Alvares MD [address] [place] [address] 47[address] Assigned Neuroscience Provider 12/29/24 Jignesh Mathias MD [address] [place] [address] 21599 Assigned Surgical Provider 12/29/24 Ayad Lopez, PhD LP [address] [place] [address] 67[address] Assigned Behavioral Health Provider 02/28/25 Gavi Nieto PA-C [address] [place], [place] 770645 Physician Primer Inspector Dermatology 03/19/25 documented as of this encounter
--- OUTSIDE RECORDS SUMMARY | 2025-06-10 11:37 | XMS_ITS | Encounter Summary ---
Author Organization [facility] Address [address] [place] [address] Care Team Providers Care Yarn Texture Machine Operator Name Role Phone Rio Jaquez MD Primary Care Provider + [phone] Barry Kilpatrick MD Unavailable Michelle Henderson RN Unavailable +[phone] Rio Jaquez MD Unavailable +[phone] Jemima Jaramillo MD Unavailable Unavai Kelley Bautista RN Unavailable +[phone] Sydnee Saleem MD Unavailable +[phone] Karlene Moya MD Unavailable +[phone] Wilbert Quintero OD Unavailable +[phone] Rod GauthierM Unavailable +[phone] Nallely Hogue RN Unavailable Unavailable Larisa Vargas RN Unavailable Unavailable Jan Mahmood MD Unavailable +[phone] Brandt Quintana MD Unavailable +[phone] Jan Mahmood MD Unavailable +[phone] Rio Jaquez MD Unavailable +[phone] Dom Eason MD Unavailable +[phone] Jayla Plaza RN Unavailable +[phone] Sydnee Saleem MD Unavailable +[phone] Cristian Barragan MD Unavailable +[phone] Dom Eason MD Unavailable + [phone] Jaimie Vernon RN Unavailable Unavailable Ruth Riddle DPM, Podiatry /Foot and Ankle Surgery Unavailable Luis Arrington MD Unavailable +[phone] Jason Alvares MD Unavailable Marquise Hanley MD Unavailable +[phone] Vlad Ramey MD Unavailable +[phone] Joesph Crowe MD Unavailable + [phone] Luis Arrington MD Unavailable +[phone] Michelle Padilla RN Unavailable Unavaila ble Vlad Ramey MD Unavailable +[phone] Marquise Hanley MD Unavailable +[phone] Dom Eason MD Unavailable +[phone] Wagner Oliver MD Unavailable + [phone] Laura Epperson NP Unavailable +[phone] Thom Taveras MD Unavailable +[phone] Joesph Crowe MD Unavailable + [phone] Joesph Crowe MD Unavailable + [phone] Adonay Haq MD Unavailable +[phone] OctoberDenilson MD Unavailable + [phone] Jason Alvares MD Unavailable Ruth Riddle DPM, Podiatry /Foot and Ankle Surgery Unavailable Omar Carmona MD Primary Care Provider +[phone] Jignesh Mathias MD Unavailable Adonay Haq MD Unavailable +[phone] Omar Carmona MD Unavailable +[phone] Jason Alvares MD Unavailable Jignesh Mathias MD Unavailable Ayad Lopez PhD LP Unavailable +[phone] Gavi Nieto PA-C Unavailable +[phone] Encounter Details Date Type Department Care Team (Late st Contact Info) Description 12/26/2021 MyC Medical Advice [address] [phone] Crystal Castellanos RN Social History [...] Answer Date Recorded PHQ-2 Score 2 08/27/2021 [facility] - [...] Sex Assigned at Female 09/12/2020 12:05 PM TOP CLEANER Legal Sex Female 3:26 AM TOP CLEANER Gender Identity Female 09/12/2020 12:05 PM TOP CLEANER Sexual Orientation Straight 12/19/2021 10 :44 AM [...] st Contact Info) Description 06/13/2025 6:00 PM TOP CLEANER Ancillary Procedure [facility] [address] [phone] Omar Carmona MD [address] [place] [address] 06/14/2025 4:00 PM TOP CLEANER Office [facility] [address] [place] [phone] Omar Carmona MD [address] [place] [address] 06/15/2025 12:45 PM TOP CLEANER Therapy Visit [facility] [place] [phone] Jason Alvares MD [address] [place] [address] Chaya Castillo OTR [facility] [address] [place] [address] 06/19/2025 10:30 AM TOP CLEANER Virtual Visit [facility] [address] [place] [address] 4th [place] [phone] Omar Carmona MD [address] [place] [address] 375815 Gerson Santos RPH 06/26/2025 11:00 AM TOP CLEANER Therapy Visit [address] [phone] Jason Alvares MD [address] [place] [address] Chaya Castillo OTR [facility] 150 [place] [address] 07/09/2025 12:45 PM TOP CLEANER Therapy Visit [facility] 150 [place] [phone] Jason Alvares MD [address] [place] [address] Chaya Castillo OTR [facility] [address] [place] [address] 07/18/2025 3:00 PM TOP CLEANER Office [facility] [address] [phone] Adonay Chapman APRN PLANER [employer] [address] [place] [address] 11/05/2025 12:[address] [facility] [address]st [place] [phone] 11/05/2025 1:45 PM CDT Office Visit [facility] [address]rd [place] [phone] Gavi Nieto PA-C Dermatology [address] [place] [address] [phone] 11/20/2025 10:30 AM CDT Virtual Visit [address] [phone] Marquise Hanley MD [address] [place] [address] documented as of this encounter Goals Goal [...] Total Score: 5 08/27/19 22 9:25 AM TOP CLEANER documented as of this encounter Care Teams Yarn Texture Machine Operator Relationship Specialty Start Date End Date Rio Jaquez MD [address] [place] [address] PCP - General Family Practice 12/02/10 07/13/24 Omar Carmona MD [address] [place] [address] 530525 PCP - General Family Medicine 07/14/24 Barry Kilpatrick MD [address] [place] [address] [id number] [place], [place] [phone] Neurology 07/19/14 Michelle Henderson I, RN Nurse Coordinator Neurology 07/19/14 Rio Jaquez MD [address] [place] [address] 4 [place], [place] 405565 Family Practice 10/15/14 Jemima Jaramillo MD shipping and receiving specialist 11/20/14 Kelley Chin, TANIA [facility] 909 [place], [place] 755665 Nurse Coordinator Cardiology 11/04/15 Sydnee Saleem MD [address] [place] [address] 508 [place], [place] 343405 Cardiology 11/04/15 Karlene Moya MD [address] [place] [address] 461785 Ophthalmology 06/24/17 Wilbert Quintero, OD [address] [place] [address] Optometry 06/24/17 Rod Gauthier DPM [address] [place] [address] Pathology Laboratory Technologist Primary Podiatric Medicine 06/21/18 Nallely Hogue, RN Registered Nurse 02/20/19 11/23/22 Larisa Vargas, TANIA Specialty Head Start Teacher Cardiology 04/18/19 03/06/22 Jan Mahmood MD 516 [facility] 2A [place] [address] Gastroenterology 11/05/20 [place] [address] [place] [address] 32393 Resident 11/05/20 Jan Mahmood MD 6 [facility] 2A [place] [address] Assigned Gastroenterology Provider 12/01/20 Rio Jaquez MD 909 [facility] 4 [place], [place] 644705 Assigned PCP 11/17/20 09/30/24 Dom Eason MD 717 [facility] 353 [place], [place] 918464 Internal Medicine 12/02/20 Jayla Plaza, RN Specialty Head Start Teacher Hepatology 01/09/21 02/13/24 Sydnee Saleem MD [address] [place] [address] [place] [address] [phone] Assigned Heart and Vascular Provider 02/02/21 07/24/22 Cristian Barragan MD 2945 [place] [address] Assigned Infectious Disease Provider 02/21/21 03/06/22 Dom Eason MD [address] [place] [address] 353 [place] [address] Assigned Nephrology Provider 04/20/21 01/02/22 Jaimie Vernon, RN Specialty Head Start Teacher Cardiology 10/28/21 Ruth Riddle DPM, Podiatry/Foot and Ankle Surgery [address] [address] Assigned Musculoskeletal Provider 11/30/21 09/30/23 Luis Arrington MD [address] [place] [address] 120565 Assigned Neuroscience Provider 11/23/21 01/02/22 Jason Alvares MD [address] [place] [address] 295 [place], [place] 021665 Assigned Neuroscience Provider 01/03/22 05/15/22 Marquise Hanley MD [address] [place] [address] 11727 Endocrinology, Diabetes, and Metabolism 03/05/22 Vlad Ramey MD [address] [place] [address] 626675 Cardiovascular Disease 05/07/22 Joesph Crowe MD [address] [place] [address] 30279 Surgery 05/07/22 Luis Arrington MD [address] [place] [address] 81764 Assigned Neuroscience Provider 05/16/22 05/14/23 Michelle Padilla, RN Specialty Head Start Teacher Cardiology 07/03/22 Vlad Ramey MD [address] [place] [address] 792395 Assigned Heart and Vascular Provider 07/25/22 05/28/23 Marquise Hanley MD [address] [place] [address] 05766 Assigned Endocrinology Provider 08/15/22 Dom Eason MD 7 [facility] 353 [place] [address] Assigned Nephrology Provider 11/28/22 02/19/23 Wagner Oliver MD 6401 [place] [address] Critical Care 12/15/22 Laura Epperson NP 7 [facility] 1932 [place] [address] Assigned Nephrology Provider 02/20/23 08/30/24 Thom Taveras MD [facility] [address] [place] [address] Assigned Cancer Care Provider 02/06/23 08/20/23 Joesph Crowe MD [address] [place] [address] 12578 Surgery 03/17/23 Joesph Crowe MD [address] [place] [address] 76748 Assigned Surgical Provider 04/03/23 09/30/24 Adonay Haq MD [address] [place] [address] 87879 Internal Medicine 06/14/23OctoberDenilson MD [address] [facility]00 [place] [address] Assigned Heart and Vascular Provider 05/29/23 11/28/24 Jason Alvares MD [address] [place] [address] Assigned Neuroscience Provider 05/15/23 11/28/24 Ruth Riddle DPM, Podiatry/Foot and Ankle Surgery [address] RODRIGUEZ [address] [place] [address] Assigned Musculoskeletal Provider 10/22/23 Jignesh Mathias MD [address] [place] [address] 49735 Gastroenterology 09/25/24 Adonay Haq MD [address] [place] [address] 00372 Assigned PCP 10/01/24 12/28/24 Omar Carmona MD [address] [place] [address] 064945 Assigned PCP 12/29/24 Jason Alvares MD [address] [place] [address] 295 [place], [place] 462965 Assigned Neuroscience Provider 12/29/24 Jignesh Mathias MD [address] [place] [address] 568995 Assigned Surgical Provider 12/29/24 Ayad Lopez, PhD LP [address] [place] [address] Assigned Behavioral Health Provider 02/28/25 Gavi Nieto, PA-C [address] [place] [address] 388425 Physician Senior Environmental Scientist Dermatology 03/19/25 documented as of this encounter
--- OUTSIDE RECORDS SUMMARY | 2025-06-10 11:37 | XMS_ITS | Encounter Summary ---
Author Organization [facility] Address [address] [place] [address] Care Team Providers Care Underwriter Solicitation Director Name Role Phone Rio Jaquez MD Primary Care Provider Barry Kilpatrick MD Unavailable Michelle Henderson RN Unavailable [phone] Rio Jaquez MD Unavailable +[phone] Jemima Jaramillo MD Unavailable Unavai Kelley Bautista RN Unavailable +[phone] Sydnee Saleem MD Unavailable +[phone] Karlene Moya MD Unavailable +[phone] Wilbert Quintero OD Unavailable +[phone] Rod Gauthier DPM Unavailable +[phone] Nallely Hogue RN Unavailable Unavailable Larisa Vargas RN Unavailable Unavailable Francisco Lott MD Unavailable +[phone] Greg Ortega MD Unavailable +[phone] Jan Mahmood MD Unavailable +[phone] Brandt Quintana MD Unavailable +[phone] Jan Mahmood MD Unavailable Rio Jaquez [...] Unavailable +[phone] Dom Eason MD Unavailable aWgner Oliver MD Unavailable Laura Epperson NP Unavailable [phone] Thom Taveras MD Unavailable +[phone] Joesph Crowe MD Unavailable +[phone] Joesph Crowe MD Unavailable +[phone] Adonay Haq MD Unavailable [phone] Denilson Srinivasan MD Unavailable +[phone] Jason Alvares MD Unavailable Ruth RiddleM, Podiatry /Foot and Ankle Surgery Unavailable Omar Carmona MD Primary Care Provider [phone] Jignesh Mathias MD Unavailable Adonay Haq MD Unavailable [phone] Omar Carmona MD Unavailable +[phone] Jason Alvares MD Unavailable Jignesh Mathias MD Unavailable Ayad Lopez PhD LP Unavailable +[phone] Gavi Nieto-C Unavailable +[phone] Encounter Details Date Type Department Care Team (Late st Contact Info) Description 11/14/2021 [facility] Heart Clinic [address] [phone] [facility] Social History Tobacco Use Types Packs/Day Years [...] Answer Date Recorded PHQ-2 Score 2 08/27/2021 [facility] [...] Sex Assigned at Female 09/12/2020 12:05 PM ZONE MANAGER Legal Sex Female 3:26 AM ZONE MANAGER Gender Identity Female 09/12/2020 12:05 PM ZONE MANAGER Sexual Orientation Straight 12/19/2021 10 :44 [...] st Contact Info) Description 06/13/2025 6:00 PM ZONE MANAGER Ancillary Procedure [facility] Imaging [facility] CT Clinic [address] [place] [address] Omar Carmona MD [address] [place] [address] 692195 06/14/2025 4:00 PM ZONE MANAGER Office Visit [facility] Primary [facility] [address] [place] [address] Omar Carmona MD [address] [place] [address] 06/15/2025 12:45 PM ZONE MANAGER Therapy Visit [facility] [place] [phone] Jason Alvares MD [address] [place] [address] Chaya Castillo OTR [facility] 150 [place] [address] 06/19/2025 10:30 AM ZONE MANAGER Virtual Visit [facility] Clinic [address] [place] [address] 4th [place] [phone] Omar Carmona MD [address] [place] [address] 219785 Gerson Santos [facility] 06/26/2025 11:00 AM ZONE MANAGER Therapy Visit [facility] 150 [place] [phone] Jason Alvares MD [address] [place] [address] Chaya Castillo OTR [facility] 150 [place] [address] 07/09/2025 12:45 PM ZONE MANAGER [facility] 150 [place] [phone] Jason Alvares MD [address] [place] [address] Chaya Castillo OTR [facility] 150 [place] [address] 07/18/2025 3:00 PM ZONE MANAGER Office Visit [facility] Heart [address] [phone] Adonay Chapman APRN [facility] 500 [place] [address] 11/05/2025 12:30 PM CDT Lab [facility] Lab [address] [place] [phone] 11/05/2025 1:45 PM CDT Office Visit [facility] Dermatology [address] [place] [phone] Gavi Nieto PA-C Dermatology [address] [place] [address] 11/20/2025 10:30 AM CDT Virtual Visit [address] [phone] Marquise Hanley MD [address] [place] [address] 728345 documented as of this encounter Goals Goal [...] Total Score: 5 08/27/19 22 9:25 AM ZONE MANAGER documented as of this encounter Care Teams Underwriter Solicitation Director Relationship Specialty Start Date End Date Rio Jaquez MD [address] [place] [address] 80725 PCP - General Family Practice 12/02/10 07/13/24 Omar Carmona MD [address] [place] [address] PCP - General Family Medicine 07/14/24 Barry Kilpatrick MD [address] [place] [address] [id number] [place], [place] 825875 Neurology 07/19/14 Michelle Henderson RN Nurse Coordinator Neurology 07/19/14 Rio Jaquez MD [address] [place] [address] 596515 Family Practice 10/15/14 Jemima Jaramillo MD field crop harvest worker 11/20/14 Kelley Chin, TANIA [address] 238065 Nurse Coordinator Cardiology 11/04/15 Sydnee Saleem MD [address] [place] [address] 508 [place], [place] 366545 Cardiology 11/04/15 Karlene Moya MD [address] [place] [address] Ophthalmology 06/24/17 Wilbert Quintero, OD [address] [place] [address] [phone] Optometry 06/24/17 Rod Gauthier DPM [address] [place] [address] 61320 Sheet Metal Superintendent Primary Podiatric Medicine 06/21/18 Nallely Hogue, RN Registered Nurse 02/20/19 11/23/22 Larisa Vargas, TANIA Specialty Senior Oracle Developer Cardiology 04/18/19 03/06/22 Francisco Lott MD [address] [place] [address] 99836 Assigned Rheumatology Provider 05/31/20 12/13/21 Greg Ortega MD [address] [place] [address] 51402 Assigned Surgical Provider 06/23/20 12/06/21 Jan Mahmood MD [address] [place] [address] Gastroenterology 11/05/20 Brandt Quintana MD [address] [place] [address] Resident 11/05/20 Jan Mahmood MD [address] [place] [address] 923[address] Assigned Gastroenterology Provider 12/01/20 Rio Jaquez MD [address] [place] [address] Assigned PCP 11/17/20 09/30/24 Dom Eason MD [address] [place] [address] 353 [place] [address] Internal Medicine 12/02/20 Jayla Plaza, RN Specialty Senior Oracle Developer Hepatology 01/09/21 02/13/24 Sydnee Saleem MD 6550 [facility] [address] [place] [address] Assigned Heart and Vascular Provider 02/02/21 07/24/22 Phan Coello MD Assigned Neuroscience Provider 02/21/21 11/22/21 Cristian Barragan MD 2945 [place] [address] Assigned Infectious Disease Provider 02/21/21 03/06/22 Dom Eason MD [address] [place] [address] 353 [place] [address] Assigned Nephrology Provider 04/20/21 01/02/22 Jaimie Vernon, RN Specialty Senior Oracle Developer Cardiology 10/28/21 Ruth Riddle, DPM, Podiatry/Foot and Ankle Surgery [address] [place] [address] [address] Assigned Musculoskeletal Provider 11/30/21 09/30/23 Luis Arrington MD 909 [place] [address] Assigned Neuroscience Provider 11/23/21 01/02/22 Jason Alvares MD [address] [place] [address] 295 [place] [address] Assigned Neuroscience Provider 01/03/22 05/15/22 Marquise Hanley MD [address] [place] [address] Endocrinology, Diabetes, and Metabolism 03/05/22 Vlad Ramey MD [address] [place] [address] 99034 Cardiovascular Disease 05/07/22 Joesph Crowe MD [address] [place] [address] Surgery 05/07/22 Luis Arrington MD [address] [place] [address] 14293 Assigned Neuroscience Provider 05/16/22 05/14/23 Michelle Padilla, TANIA Specialty Senior Oracle Developer Cardiology 07/03/22 Vlad Ramey MD [address] [place] [address] Assigned Heart and Vascular Provider 07/25/22 05/28/23 Marquise Hanley MD [address] [place] [address] Assigned Endocrinology Provider 08/15/22 Dom Eason MD [address] [place] [address] Assigned Nephrology Provider 11/28/22 02/19/23 Wagner Oliver MD [address] [place] [address] Critical Care 12/15/22 Laura Epperson, RANGE CONSERVATIONIST 717 [facility] 1932 [place] [address] Assigned Nephrology Provider 02/20/23 08/30/24 Thom Taveras MD [address] [place] [address] Assigned Cancer Care Provider 02/06/23 08/20/23 Joesph Crowe MD 909 [place] [address] Surgery 03/17/23 Joesph Crowe MD 909 [place] [address] Assigned Surgical Provider 04/03/23 09/30/24 Adonay Haq MD 909 [place] [address] Internal Medicine 06/14/23OctoberDenilson MD [address] [facility] [address] [place] [address] Assigned Heart and Vascular Provider 05/29/23 11/28/24 Jason Alvares MD 420 [facility] 295 [place] [address] Assigned Neuroscience Provider 05/15/23 11/28/24 Ruth Riddle DPM, Podiatry/Foot and Ankle Surgery [address] R[address]IG[address]Z [address] [place] [address] Assigned Musculoskeletal Provider 10/22/23 Jignesh Mathias MD [address] [place] [address] 16611 Gastroenterology 09/25/24 Adonay Haq MD [address] [place] [address] 345415 Assigned PCP 10/01/24 12/28/24 Omar Carmona MD [address] [place] [address] 875575 Assigned PCP 12/29/24 Jason Alvares MD [address] [place] [address] 198275 Assigned Neuroscience Provider 12/29/24 Jignesh Mathias MD [address] [place] [address] 63330 Assigned Surgical Provider 12/29/24 Ayad Lopez, PhD LP [address] [place] [address] 581555 Assigned Behavioral Health Provider 02/28/25 Gavi Nieto PA-C [address] [place] [address] 906205 Physician Sole Conditioner Dermatology 03/19/25 documented as of this encounter
--- OUTSIDE RECORDS SUMMARY | 2025-06-10 11:38 | XMS_ITS | Encounter Summary ---
Author Organization [place] Address [address] [place] [address] Care Team Providers Care Teacher Private Name Role Phone Rio Jaquez MD Primary Care Provider Barry Kilpatrick MD Unavailable Michelle Henderson I RN Unavailable [phone] Rio Jaquez MD Unavailable +[phone] Jemima Jaramillo MD Unavailable Unavai Kelley Bautista RN Unavailable +[phone] Sydnee Saleem MD Unavailable +[phone] Karlene Moya MD Unavailable Wilbert Quintero OD Unavailable +[phone] Rod Gauthier DPM Unavailable Jan Mahmood MD Unavailable +[phone] Brandt Quintana MD Unavailable +[phone] Jan Mahmood MD Unavailable +[phone] Rio Jaquez MD Unavailable +[phone] Dom Eason MD Unavailable Jayla Plaza RN Unavailable +-[phone] Jaimie Vernon RN Unavailable Unavailable Marquise Hanley MD Unavailable +[phone] Vlad Ramey MD Unavailable +-[phone] Joesph Crowe MD Unavailable + [phone] Michelle Padilla RN Unavailable Unavaila ble Marquise Hanley MD Unavailable +-[phone] Wagner Oliver MD Unavailable +[phone] ZeenatLaura rodriguez NP Unavailable + [phone] Joesph Crowe MD Unavailable + [phone] Joesph Crowe MD Unavailable + [phone] Adonay Haq MD Unavailable +[phone] Denilson Srinivsaan MD Unavailable + [phone] Jason Alvares MD Unavailable Ruth Riddle DPM, Podiatry /Foot and Ankle Surgery Unavailable Omar Carmona MD Primary Care Provider [phone] Jignesh Mathias MD Unavailable Adonay Haq MD Unavailable [phone] Omar Carmona MD Unavailable +[phone] Jason Alvares MD Unavailable Jignesh Mathias MD Unavailable Ayad Lopez PhD LP Unavailable +[phone] Gavi Nieto PA-C Unavailable +[phone] Encounter Details Date Type Department Care Team (Late st Contact Info) Description 12/07/2023 [facility] Hepatology [address] [address] Jayla Plaza, RN Social History [...] Answer Date Recorded PHQ-2 Score 2 08/26/2023 [place] [facility] - Occupational Stress Questionnaire [...] Sex Assigned at Female 09/12/2020 12:05 PM LOSS PREVENTION MANAGER Legal Sex Female 3:26 AM LOSS PREVENTION MANAGER Gender Identity Female 09/12/2020 12:05 PM LOSS PREVENTION MANAGER Sexual Orientation Straight 12/19/2021 10 :44 AM CDT Occupation Industry Job Start Date Job End Date on disability for FMS Not on file Not on file Not on file disabled Not on file Not on file Not on file documented as of this encounter Plan of Treatment Upcoming Encounters Date Type Department Care Team (Late st Contact Info) Description 06/13/2025 6:00 PM LOSS PREVENTION MANAGER Ancillary Procedure [facility] [address] [phone] Omar Carmona MD [address] [place] [address] 06/14/2025 4:00 PM LOSS PREVENTION MANAGER Office Visit [facility] Primary Care [address] [phone] Omar Carmona MD [address] [place] [address] 06/15/2025 12:45 PM LOSS PREVENTION MANAGER [facility] [address] [place] [phone] Jason Alvares MD [address] [place] [address] Chaya Castillo, OTR [facility] [address] [place], [place] 6826[address] 06/19/2025 10:30 AM LOSS PREVENTION MANAGER Virtual Visit [facility] Primary Care [address] [phone] Omar Carmona MD [address] [place] [address] Gerson Santos [facility] 06/26/2025 11:00 AM LOSS PREVENTION MANAGER Therapy Visit [facility] [address] [facility] [place] [phone] Jason Alvares MD [address] [place] [address] 364835 Chaya Castillo, OTR [facility] [address] [place] [address] 07/09/2025 12:45 PM LOSS PREVENTION MANAGER Therapy Visit [facility] [address] [place] [phone] Jason Alvares MD 420 [facility] 295 [place] [address] Chaya Castillo, OTR [facility] 150 [place] [address] 07/18/2025 3:00 PM LOSS PREVENTION MANAGER Office Visit [facility] Heart [address] [phone] Adonay Chapman APRN [facility] 500 [place], [place] 6[address] 11/05/2025 12:30 PM CDT Lab [facility] Lab [address] [place] [phone] 11/05/2025 1:45 PM CDT Office Visit [facility] Dermatology [address] [phone] Gavi Nieto PA-C Dermatology [address] [place] [address] 11/20/2025 10:30 AM CDT Virtual Visit [address] [address] Marquise Hanley MD [address] [place] [address] documented as of this encounter Goals Goal [...] Total Score: 9 06/14/20 23 7:18 AM LOSS PREVENTION MANAGER documented as of this encounter Care Teams Teacher Private Relationship Specialty Start Date End Date Rio Jaquez MD [address] [place] [address] PCP - General Family Practice 12/02/10 07/13/24 Omar Carmona MD [address] [place] [address] 437385 PCP - General Family Medicine 07/14/24 Barry Kilpatrick MD [address] [place] [address] [id number] [place], [place] 094195 Neurology 07/19/14 Michelle Henderson I, RN Nurse Coordinator Neurology 07/19/14 Rio Jaquez MD [address] [place] [address] 133345 Family Practice 10/15/14 Jemima Jaramillo MD dairy supplies sales representative 11/20/14 Kelley Chin, TANIA [address] 290825 Nurse Coordinator Cardiology 11/04/15 Sydnee Saleem MD [address] [place] [address] 508 [place] [address] Cardiology 11/04/15 Karlene Moya MD 6 [place] [address] Ophthalmology 06/24/17 Wilbert Quintero OD [address] [place] [address] Optometry 06/24/17 Rod Gauthier DPM [address] [place] [address]27 Hooker Machine Tender Primary Podiatric Medicine 06/21/18 Jan Mahmood MD [address] [place] [address] Gastroenterology 11/05/20 Brandt Quintana MD [address] [place] [address] 404[address] Resident 11/05/20 Jan Mahmood MD [address] [place] [address] 32383 Assigned Gastroenterology Provider 12/01/20 Rio Jaquez MD [address] [place] [address] 4 [place] [address] Assigned PCP 11/17/20 09/30/24 Dom Eason MD 717 [facility] 353 [place] [address] Internal Medicine 12/02/20 Jayla Plaza, RN Specialty Production Or Plant Engineer Hepatology 01/09/21 02/13/24 Jaimie Vernon, RN Specialty Production Or Plant Engineer Cardiology 10/28/21 Marquise Hanley MD [address] [place] [address] Endocrinology, Diabetes, and Metabolism 03/05/22 Vlad Ramey MD [address] [place] [address] 93269 Cardiovascular Disease 05/07/22 Joesph Crowe MD [address] [place] [address] 8[address]39 MD Surgery 05/07/22 Michelle Padilla RN Specialty Production Or Plant Engineer Cardiology 07/03/22 Marquise Hanley MD [address] [place] [address] Assigned Endocrinology Provider 08/15/22 Wagner Oliver MD 64[address] [facility] [place] [address] Critical Care 12/15/22 Laura Epperson NP [address] [place] [address] 1932 [place] [address] Assigned Nephrology Provider 02/20/23 08/30/24 Joesph Crowe MD [address] [place] [address] 37237 Surgery 03/17/23 Joesph Crowe MD [address] [place] [address] 61759 Assigned Surgical Provider 04/03/23 09/30/24 Adonay Haq MD [address] [place] [address] Internal Medicine 06/14/23OctoberDenilson MD [address] [facility] [address] [place] [address] Assigned Heart and Vascular Provider 05/29/23 11/28/24 Jason Alvares MD [address] [place] [address] Assigned Neuroscience Provider 05/15/23 11/28/24 Ruth Riddle DPM, Podiatry/Foot and Ankle Surgery [address] [place] [address] Assigned Musculoskeletal Provider 10/22/23 Jignesh Mathias MD [address] [place] [address] Gastroenterology 09/25/24 Adonay Haq MD [address] [place] [address] Assigned PCP 10/01/24 12/28/24 Omar Carmona MD [address] [place] [address] 65[address] Assigned PCP 12/29/24 Jason Alvares MD [address] [place] [address] 382925 Assigned Neuroscience Provider 12/29/24 Jignesh Mathias MD [address] [place] [address]248 Assigned Surgical Provider 12/29/24 yAad Lopez, PhD LP [address] [place] [address] 227625 Assigned Behavioral Health Provider 02/28/25 Gavi Nieto, PANavinC 500 [place], [place] 517685 Physician Tile Layer Dermatology 03/19/25 documented as of this encounter
--- OUTSIDE RECORDS SUMMARY | 2025-06-10 11:38 | XMS_ITS | Encounter Summary ---
Author Organization [place] Address [address] [place] [address] Care Team Providers Care Patient Support Specialist Name Role Phone Rio Jaquez MD Primary Care Provider Barry Kilpatrick MD Unavailable Michelle Henderson I RN Unavailable [phone] Rio Jaquez MD Unavailable +[phone] Jemima Jaramillo MD Unavailable Unavai Kelley Bautista RN Unavailable [phone] Sydnee Saleem MD Unavailable +[phone] Karlene Moya MD Unavailable Wilbert Quintero OD Unavailable +[phone] Rod Gauthier DPM Unavailable Jan Mahmood MD Unavailable +[phone] Brandt Quintana MD Unavailable [phone] Jan Mahmood MD Unavailable +[phone] Rio Jaquez MD Unavailable [phone] Dom Eason MD Unavailable Jayla Plaza RN Unavailable +[phone] Jaimie Vernon RN Unavailable Unavailable Marquise Hanley MD Unavailable +[phone] Vlad Ramey MD Unavailable +[phone] Joesph Crowe MD Unavailable + [phone] Michelle Padilla RN Unavailable Unavaila ble Marquise Hanley MD Unavailable +[phone] Wagner Oliver MD Unavailable +[phone] ZeenatLaura rodriguez NP Unavailable +[phone] Joesph Crowe MD Unavailable +[phone] Joesph Crowe MD Unavailable + [phone] Adonay Haq MD Unavailable [phone] Denilson Srinivasan MD Unavailable + [phone] Jason Alvares MD Unavailable Ruth Riddle DPM, Podiatry /Foot and Ankle Surgery Unavailable Omar Carmona MD Primary Care Provider [phone] Jignesh Mathias MD Unavailable Adonay Haq MD Unavailable [phone] Omar Carmona MD Unavailable +[phone] Jason Alvares MD Unavailable Jignesh Mathias MD Unavailable Ayad Lopez PhD LP Unavailable +[phone] Gavi Nieto PA-C Unavailable [phone] Encounter Details Date Type Department Care Team (Late st Contact Info) Description 12/20/2023 [facility] [address] [phone] Valerie Nation Social History Tobacco [...] Answer Date Recorded PHQ-2 Score 2 08/26/2023 [facility] - Occupational Stress Questionnaire Answer [...] Sex Assigned at Female 09/12/2020 12:05 PM FILM LABORATORY TECHNICIAN Legal Sex Female 3:26 AM FILM LABORATORY TECHNICIAN Gender Identity Female 09/12/2020 12:05 PM FILM LABORATORY TECHNICIAN Sexual Orientation Straight 12/19/2021 10 :44 AM CDT Occupation Industry Job Start Date Job End Date on disability for FMS Not on file Not on file Not on file disabled Not on file Not on file Not on file documented as of this encounter Plan of Treatment Upcoming Encounters Date Type Department Care Team (Late st Contact Info) Description 06/13/2025 6:00 PM FILM LABORATORY TECHNICIAN Ancillary Procedure [facility] [address] [phone] Omar Carmona MD [address] [place] [address] 06/14/2025 4:00 PM FILM LABORATORY TECHNICIAN Office Visit [facility] Primary Care [address] [phone] Omar Carmona MD [address] [place] [address] 86169 06/15/2025 12:45 PM FILM LABORATORY TECHNICIAN Therapy Visit [facility] [address] [place] [phone] Jason Alvares MD [address] [place] [address] 295 [place], [place] 6[address]45 Chaya Castillo OTR [facility] 150 [place], [place] [address]227 06/19/2025 10:30 AM FILM LABORATORY TECHNICIAN Virtual Visit [facility] Primary Care [address] [phone] Omar Carmona MD [address] [place] [address] 024645 Gerson Santos [facility] 06/26/2025 11:00 AM FILM LABORATORY TECHNICIAN Therapy Visit [facility] [address] [place] [phone] Jason Alvares MD [address] [place] [address] 295 [place], [place] 718525 Chaya Castillo OTR [facility] 150 [place] [address] 07/09/2025 12:45 PM FILM LABORATORY TECHNICIAN Therapy Visit [facility] 150 [place] [phone] Jason Alvares MD 420 [facility] 295 [place], [place] 0[address] Chaya Castillo, OTR [address] [address] 07/18/2025 3:00 PM FILM LABORATORY TECHNICIAN Office Visit [facility] Heart [address] [phone] Adonay Chapman APRN [facility] 500 [place], [place] [address] 11/05/2025 12:30 PM CDT Lab [facility] Lab [address] 1st [place] [phone] 11/05/2025 1:45 PM CDT Office Visit [facility] Dermatology [address] 3rd [place] [phone] Gavi Nieto PA-C Dermatology [address] [place] [address] [phone] 11/20/2025 10:30 AM CDT Virtual Visit [address] [place] [phone] Marquise Hanley MD [address] [place] [address] 339375 documented as of this encounter Goals Goal [...] Total Score: 9 06/14/20 23 7:18 AM FILM LABORATORY TECHNICIAN documented as of this encounter Care Teams Patient Support Specialist Relationship Specialty Start Date End Date Rio Jaquez MD [address] [place] [address] 4 [place] [address] PCP - General Family Practice 12/02/10 07/13/24 Omar Carmona MD [address] [place] [address] 824905 PCP - General Family Medicine 07/14/24 Barry Kilpatrick MD [address] [place] [address] [place] [address] Neurology 07/19/14 Michelle Henderson I, RN Nurse Coordinator Neurology 07/19/14 Rio Jaquez MD [address] [place] [address] 38300 Family Practice 10/15/14 Jemima Jaramillo MD reliability technician 11/20/14 Kelley Chin, TANIA [address] 514325 Nurse Coordinator Cardiology 11/04/15 Sydnee Saleem MD [address] [place] [address] 508 [place], [place] 077375 Cardiology 11/04/15 Karlene Moya MD [address] [place] [address]77 Ophthalmology 06/24/17 Wilbert Quintero OD 9 [place] [address] Optometry 06/24/17 Rod Gauthier DPM [address] [place] [address] 19748 Maid Supervisor Primary Podiatric Medicine 06/21/18 Jan Mahmood MD [address] [place] [address] Gastroenterology 11/05/20 Brandt Quintana MD [address] [place] [address] Resident 11/05/20 Jan Mahmood MD [address] [place] [address] 54686 Assigned Gastroenterology Provider 12/01/20 Rio Jaquez MD [address] [place] [address] 6[address]39 Assigned PCP 11/17/20 09/30/24 Dom Eason MD [address] [address] Internal Medicine 12/02/20 Jayla Plaza, RN Specialty Industrial Engineering Technician Hepatology 01/09/21 02/13/24 Jaimie Vernon, TANIA Specialty Industrial Engineering Technician Cardiology 10/28/21 Marquise Hanley MD [address] [place] [address] 98117 Endocrinology, Diabetes, and Metabolism 03/05/22 Vlad Ramey MD [address] [place] [address] 42493 Cardiovascular Disease 05/07/22 Joesph Crowe MD [address] [place] [address] 68744 MD Surgery 05/07/22 Michelle Padilla RN Specialty Industrial Engineering Technician Cardiology 07/03/22 Maruqise Hanley MD [address] [place] [address] 75381 Assigned Endocrinology Provider 08/15/22 Wagner Oliver MD [address] [place] [address] Critical Care 12/15/22 Laura Epperson NP [address] [place] [address] 1932 [place] [address] Assigned Nephrology Provider 02/20/23 08/30/24 Joesph Crowe MD [address] [place] [address] 0[address]10 Surgery 03/17/23 Joesph Crowe MD [address] [place] [address] 05591 Assigned Surgical Provider 04/03/23 09/30/24 Adonay Haq MD [address] [place] [address] Internal Medicine 06/14/23October, Denilson Jackson MD [address] [facility] [address] [place] [address] Assigned Heart and Vascular Provider 05/29/23 11/28/24 Jason Alvares MD [address] [place] [address] Assigned Neuroscience Provider 05/15/23 11/28/24 Ruth Riddle DPM, Podiatry/Foot and Ankle Surgery [address] [place] [address] Assigned Musculoskeletal Provider 10/22/23 Jignesh Mathias MD [address] [place] [address] 17690 Gastroenterology 09/25/24 Adonay Haq MD [address] [place] [address] 28415 Assigned PCP 10/01/24 12/28/24 Omar Carmona MD [address] [place] [address] 08776 Assigned PCP 12/29/24 Jason Alvares MD [address] [place] [address] 9[address]17 Assigned Neuroscience Provider 12/29/24 Jignesh Mathias MD [address] [place] [address] 55455 Assigned Surgical Provider 12/29/24 Ayad Lopez, PhD LP [address] [place] [address] Assigned Behavioral Health Provider 02/28/25 Gavi Nieto PANavinC [address] [place] [address] Physician Water Fabricator Operator Dermatology 03/19/25 documented as of this encounter
--- OUTSIDE RECORDS SUMMARY | 2025-06-10 11:38 | XMS_ITS | Encounter Summary ---
Author Organization [facility] Address [address] [place] [address] 9[address] Care Team Providers Care Hooker Inspector Name Role Phone Barry Kilpatrick MD Unavailable Michelle Henderson RN Unavailable [phone] Rio Jaquez MD Unavailable +[phone] Jemima Jaramillo MD Unavailable Unavai Kelley Bautista RN Unavailable [phone] Sydnee Saleem MD Unavailable +[phone] Karlene Moya MD Unavailable +[phone] Wilbert Quintero OD Unavailable +[phone] Rod Gauthier DPM Unavailable +[phone] Jan Mahmood MD Unavailable +[phone] Brandt Quintana MD Unavailable Jan Mahmood MD Unavailable +[phone] Dom Eason MD Unavailable +[phone] Jaimie Vernon RN Unavailable Unavailable Marquise Hanley MD Unavailable +[phone] Vlad Ramey MD Unavailable +[phone] Joesph Crowe MD Unavailable Michelle Padilla RN Unavailable Unavaila ble Marquise Han[place] MD Unavailable +[phone] Wagner Oliver MD Unavailable [phone] Joesph Crowe MD Unavailable +[phone] Adonay Haq MD Unavailable [phone] Ruth Riddle DPM, Podiatry /Foot and Ankle Surgery Unavailable Omar Carmona MD Primary Care Provider [phone] Jignesh Mathias MD Unavailable Omar Carmona MD Unavailable [phone] Jason Alvares MD Unavailable Jignesh Mathias MD Unavailable Ayad Lopez PhD Unavailable Gavi Nieto-C Unavailable [phone] Reason for Visit * Reason Comments Medication Refill Encounter Details Date Type Department Care Team (Late st Contact Info) Description [facility] Internal Medicine [address] [address] Adonay Haq MD [address] [place] [address] Medication Refill Social History Tobacco Use Types Packs/Day Years Used Date Smoking Tobacco: Every Day Cigarettes 0.5 42.8 Started: 08/09/1982 Other Smokeless Tobacco: Never Comments:2 [...] Date Recorded PHQ-2 Score 2 05/03/2025 [facility] ional [...] Sex Assigned at Female 09/12/2020 12:05 PM LUG LOADER Legal Sex Female 3:26 AM LUG LOADER Gender Identity Female 09/12/2020 12:05 PM LUG LOADER Sexual Orientation Straight 12/19/2021 10 :44 AM CDT Occupation Industry Job Start Date Job End Date on disability for FMS Not on file Not on file Not on file disabled Not on file Not on file Not on file documented as of this encounter Plan of Treatment Upcoming Encounters Date Type Department Care Team (Late st Contact Info) Description 06/13/2025 6:00 PM LUG LOADER Ancillary Procedure [facility] [address] [place] [phone] Omar Carmona MD [address] [place] [place] [address] 06/14/2025 4:00 PM LUG LOADER Office Visit [facility] [address] [place] [phone] Omar Carmona MD [address] [place] [place] [address] 06/15/2025 12:45 PM LUG LOADER Therapy Visit [facility] [address] [phone] Jason Alvares MD [address] [place] [address] 295 [place], [place] 308935 Chaya Castillo OTR [facility] 150 [place] [address] 06/19/2025 10:30 AM LUG LOADER Virtual Visit [facility] [address] [place] [address] [address] [place] [phone] Omar Carmona MD [address] [place] [place] [address] [phone] Gerson Santos, [facility] 06/26/2025 11:00 AM LUG LOADER Therapy Visit [facility] 150 [place] [phone] Jason Alvares MD [address] [place] [address] [phone] Chaya Castillo, OTR [address] [address] 07/09/2025 12:45 PM LUG LOADER Therapy Visit [facility] [address] [place] [phone] Jason Alvares MD [address] [place] [address] 184305 Chaya Castillo, OTR [address] [address] 07/18/2025 3:00 PM LUG LOADER Office Visit [facility] [address] [phone] Adonay Chapman APRN [address] 021715 11/05/2025 12:30 PM CDT Lab [facility] [address] [place] [phone] 11/05/2025 1:45 PM CDT Office Visit [facility] [address]rd [facility] [phone] Gavi Nieto PA-C Dermatology [address] [place] [address] 11/20/2025 10:30 AM CDT Virtual Visit [address] [place] [address] Marquise [place] MD [address] [place] [place] [address] [phone] documented as of this encounter Goals Goal Patient Goal Type Associated Problems Recent Progress Patient-Stated? Author Quit smoking / using tobacco Lifestyle No Rio Jaquez MD Note: 06/25/14 planned quit date documented as of this encounter Visit Diagnoses Diagnosis Anemia due to blood loss, acute Acute posthemorrhagic anemia documented in this encounter Additional Health Concerns Infection Onset Date Last Indicated Resolved Time MRSA Comment:Added from external infection. 10/23/2020 10/21/2020 Assessment Noted Time PHQ-9 Depression Total Score: 7 05/03/20 25 10:54 AM CDT documented as of this encounter Care Teams Hooker Inspector Relationship Specialty Start Date End Date Omar Carmona MD [address] [place] [place] [address] [id number] PCP - General Family Medicine 07/14/24 Barry Kilpatrick MD [address] [place] [address] [id number] [place], [place] 634255 Neurology 07/19/14 Michelle Henderson I, RN Nurse Coordinator Neurology 07/19/14 Rio Jaquez MD [address] [place] [address] [address] [place], [place] [phone] Family Practice 10/15/14 Jemima Jaramillo MD 9 [facility] 4 [place] [address] cruise coordinator 11/20/14 Kelley Chin RN [facility] 909 [place], [place] 354885 Nurse Coordinator Cardiology 11/04/15 Sydnee Saleem MD [address] [place] [address] 508 [place], [place] 889845 Cardiology 11/04/15 Karlene Moya MD [address] [place] [address] 753155 Ophthalmology 06/24/17 Wilbert Quintero OD [address] [place] [place] [address] 326335 Optometry 06/24/17 Rod Gauthier DPM [address] [place] [place] [address] 639005 Receiver Dispatcher Primary Podiatric Medicine 06/21/18 Jan Mahmood MD [address] [place] [address] Gastroenterology 11/05/20 Brandt Quintana MD [address] [place] [address] Resident 11/05/20 Jan Mahmood MD [address] [place] [address] 21413 Assigned Gastroenterology Provider 12/01/20 Dom Eason MD [address] [place] [address] Internal Medicine 12/02/20 Jaimie Vernon, RN Specialty Machine Captain Cardiology 10/28/21 Marquise [place] MD [address] [place] [address]76 Endocrinology, Diabetes, and Metabolism 03/05/22 Vlad Ramey MD [address] [place] [address] Cardiovascular Disease 05/07/22 Joesph Crowe MD [address] [place] [address] 33077 MD Surgery 05/07/22 Michelle Padilla, RN Specialty Machine Captain Cardiology 07/03/22 Marquise [place] MD [address] [place] [place] [address]3651 Assigned Endocrinology Provider 08/15/22 Wagner Oliver MD [address] [place] [address] Critical Care 12/15/22 Joesph Crowe MD [address] [place] [place] [address] Surgery 03/17/23 Adonay Haq MD [address] [place] [address] Internal Medicine 06/14/23 Ruth Riddle DPVik, Podiatry/Foot and Ankle Surgery [address] [place] [address] Assigned Musculoskeletal Provider 10/22/23 Jignesh Mathias MD [address] [place] [address] Gastroenterology 09/25/24 Omar Carmona MD [address] [place] [place] [address] 88356 Assigned PCP 12/29/24 Jason Alvares MD [address] [place] [address] Assigned Neuroscience Provider 12/29/24 Jignesh Mathias MD [address] [place] [place] [address] 10567 Assigned Surgical Provider 12/29/24 Ayad Lopez, PhD LP [address] [place] [address] 32[address] Assigned Behavioral Health Provider 02/28/25 Gavi Nieto PA-C [address] [place] [address] [phone] Physician Sales Contractor Dermatology 03/19/25 documented as of this encounter
--- OUTSIDE RECORDS SUMMARY | 2025-06-10 11:38 | XMS_ITS | Encounter Summary ---
Author Organization [place] [facility] Address [address] [place] [address] Care Team Providers Care Reservoir Engineering Consultant Name Role Phone Rio Jaquez MD Primary Care Provider Barry Kilpatrick MD Unavailable Michelle Henderson I RN Unavailable [phone] Rio Jaquez MD Unavailable [phone] Jemima Jaramillo MD Unavailable Unavai Kelley Bautista RN Unavailable [phone] Sydnee Saleem MD Unavailable [phone] Karlene Moya MD Unavailable [phone] Wilbert Quintero OD Unavailable +[phone] Rod Gauthier DPM Unavailable Jan Mahmood MD Unavailable [phone] Brandt Quintana MD Unavailable [phone] Jan Mahmood MD Unavailable [phone] Rio Jaquez MD Unavailable [phone] Dom Eason MD Unavailable Jayla Plaza RN Unavailable +[phone] Jaimie Vernon RN Unavailable Unavailable Marquise Hanley MD Unavailable +[phone] Vlad Ramey MD Unavailable [phone] Joesph Crowe MD Unavailable + [phone] Michelle Padilla RN Unavailable Unavaila ble Marquise Hanley MD Unavailable +[phone] Wagner Oliver MD Unavailable [phone] Laura Epperson NP Unavailable +[phone] Joesph Crowe MD Unavailable [phone] Joesph Crowe MD Unavailable + [phone] Adonay Haq MD Unavailable [phone] Denilson Srinivasan MD Unavailable + [phone] Jason Alvares MD Unavailable Ruth Riddle DPM, Podiatry /Foot and Ankle Surgery Unavailable Omar Carmona MD Primary Care Provider [phone] Jignesh Mathias MD Unavailable Adonay Haq MD Unavailable [phone] Omar Carmona MD Unavailable [phone] Jason Alvares MD Unavailable Jignesh Mathias MD Unavailable Ayad Lopez PhD LP Unavailable [phone] Gavi Nieto PA-C Unavailable [phone] Encounter Details Date Type Department Care Team (Late st Contact Info) Description 01/11/2024 [facility] Gastroenterology Clinic [address] [address] Melissa Dinh Social History Tobacco [...] Answer Date Recorded PHQ-2 Score 2 08/26/2023 [facility] - Occupational Stress Questionnaire Answer [...] Sex Assigned at Female 09/12/2020 12:05 PM PARING MACHINE OPERATOR Legal Sex Female 3:26 AM PARING MACHINE OPERATOR Gender Identity Female 09/12/2020 12:05 PM PARING MACHINE OPERATOR Sexual Orientation Straight 12/19/2021 10 [...] st Contact Info) Description 06/13/2025 6:00 PM PARING MACHINE OPERATOR Ancillary Procedure [facility] Clinic [address] [address] Omar Carmona MD [address] [place] [address] 06/14/2025 4:00 PM PARING MACHINE OPERATOR Office Visit [facility] Primary Care [address] [phone] Omar Carmona MD [address] [place] [address] 06/15/2025 12:45 PM PARING MACHINE OPERATOR [facility] [address] [place] [phone] Jason Alvares MD [address] [place] [address] 295 [place], [place] 327535 Chaya Castillo OTR [facility] [address] [place], [place] 549647 06/19/2025 10:30 AM PARING MACHINE OPERATOR Virtual Visit [facility] Primary Care [address] [phone] Omar Carmona MD [address] [place] [address] 085635 Gerson Santos [facility] 06/26/2025 11:00 AM PARING MACHINE OPERATOR Therapy [facility] [address] [place] [address] Jason Alvares MD [address] [place] [address] 295 [place] [address] Chaya Castillo OTR [facility] [address] [place] [address] 07/09/2025 12:45 PM PARING MACHINE OPERATOR Therapy [facility] [address] [place] [phone] Jason Alvares MD [address] [facility] 295 [place], [place] 894615 Cahya Castillo, OTR [address] [address] 07/18/2025 3:00 PM PARING MACHINE OPERATOR Office Visit [facility] Heart [address] [phone] Adonay Chapman APRN [facility] 500 [place], [place] 882835 11/05/2025 12:[address] [facility] Lab [address] [place] [phone] 11/05/2025 1:45 PM CDT Office Visit [facility] Dermatology [address] [place] [phone] Gavi Nieto PA-C Dermatology [address] [place] [address] [phone] 11/20/2025 10:30 AM CDT Virtual Visit [address] [place] [phone] Marquise [place] MD [address] [place] [address]82 documented as of this encounter Goals Goal [...] Total Score: 9 06/14/20 23 7:18 AM PARING MACHINE OPERATOR documented as of this encounter Care Teams Reservoir Engineering Consultant Relationship Specialty Start Date End Date Rio Jaquez MD [address] [place] [address] 4 [place] [address] PCP - General Family Practice 12/02/10 07/13/24 Omar Carmona MD [address] [place] [address] 770625 PCP - General Family Medicine 07/14/24 Barry Kilpatrick MD [address] [place], [place] [address] [place], [place] [address] Neurology 07/19/14 Michelle Henderson I, RN Nurse Coordinator Neurology 07/19/14 Rio Jaquez MD [address] [place] [address] 587105 Family Practice 10/15/14 Jemima Jaramillo MD hospitality team member 11/20/14 Kelley Chin, [facility] [address] [place] [address] 261405 Nurse Coordinator Cardiology 11/04/15 Sydnee Saleem MD [address] [place] [address] 508 [place], [place] 642965 Cardiology 11/04/15 Karlene Moya MD [address] [place] [address] Ophthalmology 06/24/17 Wilbert Quintero OD 9 [place] [address] Optometry 06/24/17 Rod Gauthier DPM [address] [place] [address]84 Scaffold Worker Primary Podiatric Medicine 06/21/18 Jan Mahmood MD [address] [place] [address] Gastroenterology 11/05/20 Brandt Quintana MD [address] [place] [address] Resident 11/05/20 Jan Mahmood MD [address] [place] [address] 12087 Assigned Gastroenterology Provider 12/01/20 Rio Jaquez MD [address] [place] [address] 33768 Assigned PCP 11/17/20 09/30/24 Dom Eason MD [address] [address] Internal Medicine 12/02/20 Jayla Plaza, RN Specialty Fence Installer Hepatology 01/09/21 02/13/24 Jaimie Vernon, RN Specialty Fence Installer Cardiology 10/28/21 Marquise [place] MD [address] [place] [address]67 Endocrinology, Diabetes, and Metabolism 03/05/22 Vlad Ramey MD [address] [place] [address]45 Cardiovascular Disease 05/07/22 Joesph Crowe MD [address] [place] [address]6834 MD Surgery 05/07/22 Michelle Padilla RN Specialty Fence Installer Cardiology 07/03/22 Marquise [place] MD [address] [place] [address] 78048 Assigned Endocrinology Provider 08/15/22 Wagner Oliver MD [address] [place] [address] Critical Care 12/15/22 Laura Epperson NP [address] [place] [address] 1932 [place] [address] Assigned Nephrology Provider 02/20/23 08/30/24 Joesph Crowe MD [address] [place] [address]65 Surgery 03/17/23 Joesph Crowe MD [address] [place] [address]252 Assigned Surgical Provider 04/03/23 09/30/24 Adonay Haq MD [address] [place] [address] Internal Medicine 06/14/23October, Denilson Jackson MD [address] [facility] [address] [place] [address] Assigned Heart and Vascular Provider 05/29/23 11/28/24 Jason Alvares MD [address] [place] [address] Assigned Neuroscience Provider 05/15/23 11/28/24 Ruth Riddle, DPM, Podiatry/Foot and Ankle Surgery [address] [place] [address] Assigned Musculoskeletal Provider 10/22/23 Jignesh Mathias MD [address] [place] [address] Gastroenterology 09/25/24 Adonay Haq MD [address] [place] [address] 21865 Assigned PCP 10/01/24 12/28/24 Omar Carmona MD [address] [place] [address]326 Assigned PCP 12/29/24 Jason Alvares MD [address] [place] [address] Assigned Neuroscience Provider 12/29/24 Jignesh Mathias MD 9 [place] [address] Assigned Surgical Provider 12/29/24 Ayad Lopez, PhD LP [address] [place] [address] Assigned Behavioral Health Provider 02/28/25 Gavi Nieto, PANavinC [address] [place] [address] Physician Commission Agent Livestock Dermatology 03/19/25 documented as of this encounter
--- OUTSIDE RECORDS SUMMARY | 2025-06-10 11:38 | XMS_ITS | Encounter Summary ---
Author Organization [facility] Address [address] [place] [address] Care Team Providers Care Real Estate Instructor Name Role Phone Rio Jaquez MD Primary Care Provider Barry Kilpatrick MD Unavailable Michelle Henderson RN Unavailable [phone] Rio Jaquez MD Unavailable [phone] Jemima Jaramillo MD Unavailable Unavai Kelley Bautista RN Unavailable +[phone] Sydnee Saleem MD Unavailable [phone] Karlene Moya MD Unavailable [phone] Wilbert Quintero OD Unavailable [phone] Rod Gauthier DPM Unavailable +[phone] Nallely Hogue RN Unavailable Unavailable Larisa Vargas RN Unavailable Unavailable Francisco Lott MD Unavailable [phone] Greg Ortega MD Unavailable [phone] Jan Mahmood MD Unavailable [phone] Brandt Quintana MD Unavailable +[phone] Jan Mahmood MD Unavailable Rio Jaquez [...] MD Unavailable Joesph Crowe MD Unavailable [phone] Joesph Crowe MD Unavailable [phone] Adonay Haq MD Unavailable [phone] Denilson Srinivasan MD Unavailable [phone] Jason Alvares MD Unavailable Ruth RiddleM, Podiatry /Foot and Ankle Surgery Unavailable Omar Carmona MD Primary Care Provider [phone] Jignesh Mathias MD Unavailable Adonay Haq MD Unavailable [phone] Omar Carmona MD Unavailable [phone] Jason Alvares MD Unavailable Jignesh Mathias MD Unavailable Ayad Lopez PhD LP Unavailable +[phone] Gavi Nieto-C Unavailable [phone] Encounter Details Date Type Department Care Team (Late st Contact Info) Description 09/05/2021 [facility] Hepatology Clinic [address] [address] Darion [place] Social History Tobacco [...] Answer Date Recorded PHQ-2 Score 2 08/27/2021 [facility] [...] Assigned at Female 09/12/2020 12:05 PM SUPERVISOR OF OPERATIONS Legal Sex Female 3:26 AM SUPERVISOR OF OPERATIONS Gender Identity Female 09/12/2020 12:05 PM SUPERVISOR OF OPERATIONS Sexual Orientation Straight 12/19/2021 10 :44 AM [...] COVID-19? No / Unsure 08/27/2021 7:34 AM SUPERVISOR OF OPERATIONS documented as of this encounter Plan of Treatment Upcoming Encounters Date Type Department Care Team (Late st Contact Info) Description 06/13/2025 6:00 PM SUPERVISOR OF OPERATIONS Ancillary Procedure [facility] [address] [address] Omar Carmona MD [address] [place] [address] 548105 06/14/2025 4:00 PM SUPERVISOR OF OPERATIONS Office Visit [facility] [address] [place] [address] Omar Carmona MD [address] [place] [address] 06/15/2025 12:45 PM SUPERVISOR OF OPERATIONS Therapy Visit [facility] [address] [facility] [place] [phone] Jason Alvares MD [address] [place] [address] Chaya Castillo OTR [facility] 150 [place] [address] 06/19/2025 10:30 AM SUPERVISOR OF OPERATIONS Virtual Visit [facility] [address] [place] [address] 4th [place] [phone] Omar Carmona MD [address] [place] [address] [phone] Gerson Santos [facility] 06/26/2025 11:00 AM SUPERVISOR OF OPERATIONS Therapy Visit [facility] [address] [place] [phone] Jason Alvares MD [address] [place] [address] Chaya Castillo OTR [facility] 150 [place] [address] 07/09/2025 12:45 PM SUPERVISOR OF OPERATIONS [facility] [address] [place] [phone] Jason Alvares MD [address] [place] [address] Chaya Castillo OTR [facility] 150 [place] [address] 07/18/2025 3:00 PM SUPERVISOR OF OPERATIONS Office Visit [facility] Heart [address] [phone] Adonay Chapman APRN [facility] 500 [place] [address] 11/05/2025 12:30 PM CDT Lab [facility] [address] [place] [phone] 11/05/2025 1:45 PM CDT Office Visit [facility] Dermatology [address] [place] [phone] Gavi Nieto PA-C Dermatology [address] [place] [address] 11/20/2025 10:30 AM CDT Virtual Visit [address] [phone] Marquise Hanley MD [address] [place] [address] [phone] documented as of this encounter Goals Goal [...] Score: 5 08/27/19 22 9:25 AM SUPERVISOR OF OPERATIONS documented as of this encounter Care Teams Real Estate Instructor Relationship Specialty Start Date End Date Rio Jauqez MD [address] [place] [address] PCP - General Family Practice 12/02/10 07/13/24 Omar Carmona MD [address] [place] [address] PCP - General Family Medicine 07/14/24 Barry Kilpatrick MD [address] [place] [address] [id number] [place], [place] 708155 Neurology 07/19/14 Michelle Henderson I, TANIA Nurse Coordinator Neurology 07/19/14 Rio Jaquez MD [address] [place] [address] [phone] Family Practice 10/15/14 Jemima Jaramillo MD rn radiation 11/20/14 Kelley Chin, TANIA [address] 097895 Nurse Coordinator Cardiology 11/04/15 Sydnee Saleem MD [address] [place] [address] 508 [place], [place] 868485 Cardiology 11/04/15 Karlene Moya MD [address] [place] [address] Ophthalmology 06/24/17 Wilbert Quintero, OD [address] [place] [address] [phone] Optometry 06/24/17 Rod Gauthier DPM 9 [place] [address] Agile Qa Tester Primary Podiatric Medicine 06/21/18 Nallely Hogue, RN Registered Nurse 02/20/19 11/23/22 Larisa Vargas, TANIA Specialty Senior Housekeeper Cardiology 04/18/19 03/06/22 Francisco Lott MD [address] [place] [address] Assigned Rheumatology Provider 05/31/20 12/13/21 Greg Ortega MD [address] [place] [address] Assigned Surgical Provider 06/23/20 12/06/21 Jan Mahmood MD [address] [place] [address] Gastroenterology 11/05/20 Brandt Quintana MD [address] [place] [address] Resident 11/05/20 Jan Mahmood MD [address] [place] [address] Assigned Gastroenterology Provider 12/01/20 Rio Jaquez MD [address] [place] [address] Assigned PCP 11/17/20 09/30/24 Dom Eason MD [address] [place] [address] 353 [place] [address] Internal Medicine 12/02/20 Jayla Plaza, RN Specialty Senior Housekeeper Hepatology 01/09/21 02/13/24 Sydnee Saleem MD 6550 [facility] [address] [place] [address] Assigned Heart and Vascular Provider 02/02/21 07/24/22 Phan Coello MD Assigned Neuroscience Provider 02/21/21 11/22/21 Cristian Barragan MD 2945 [place] [address] Assigned Infectious Disease Provider 02/21/21 03/06/22 Dom Eason MD [address] [place] [address] 353 [place] [address] Assigned Nephrology Provider 04/20/21 01/02/22 Jaimie Vernon, RN Specialty Senior Housekeeper Cardiology 10/28/21 Ruth Riddle DPM, Podiatry/Foot and Ankle Surgery [address] [address] Assigned Musculoskeletal Provider 11/30/21 09/30/23 Luis [place] MD 909 [place] [address] Assigned Neuroscience Provider 11/23/21 01/02/22 Jason Alvares MD [address] [place] [address] 295 [place] [address] Assigned Neuroscience Provider 01/03/22 05/15/22 Marquise Hanley MD [address] [place] [address] Endocrinology, Diabetes, and Metabolism 03/05/22 lVad Ramey MD [address] [place] [address] Cardiovascular Disease 05/07/22 Joesph Crowe MD [address] [place] [address] 88856 Surgery 05/07/22 Luis [place] MD [address] [place] [address] Assigned Neuroscience Provider 05/16/22 05/14/23 Michelle Padilla, TANIA Specialty Senior Housekeeper Cardiology 07/03/22 Vlad Ramey MD [address] [place] [address] Assigned Heart and Vascular Provider 07/25/22 05/28/23 Marquise Hanley MD [address] [place] [address] Assigned Endocrinology Provider 08/15/22 Dom Eason MD [address] [place] [address] Assigned Nephrology Provider 11/28/22 02/19/23 Wagner Oliver MD [address] [place] [address] Critical Care 12/15/22 Laura Epperson, LICENSED AND CERTIFIED MIDWIFE 717 [facility] 1932 [place] [address] Assigned Nephrology Provider 02/20/23 08/30/24 Thom Taveras MD [address] [place] [address] Assigned Cancer Care Provider 02/06/23 08/20/23 Joesph Crowe MD [address] [place] [address]20 Surgery 03/17/23 Joesph Crowe MD [address]09 [place] [address] Assigned Surgical Provider 04/03/23 09/30/24 Adonay Haq MD [address] [place] [address]946 Internal Medicine 06/14/23OctoberDenilson MD [address] [facility] [address] [place] [address] Assigned Heart and Vascular Provider 05/29/23 11/28/24 Jason Alvares MD 420 [facility] 295 [place] [address] Assigned Neuroscience Provider 05/15/23 11/28/24 Ruth Riddle DPM, Podiatry/Foot and Ankle Surgery [address] RODRIGUEZ [address] [place] [address] Assigned Musculoskeletal Provider 10/22/23 Jignesh Mathias MD [address] [place] [address] Gastroenterology 09/25/24 Adonay Hqa MD [address] [place] [address] [phone] Assigned PCP 10/01/24 12/28/24 Omar Carmona MD [address] [place] [address] 193015 Assigned PCP 12/29/24 Jason Alvares MD [address] [place] [address] 403505 Assigned Neuroscience Provider 12/29/24 Jignesh Mathias MD [address] [place] [address] 77721 Assigned Surgical Provider 12/29/24 Ayad Lopez, PhD LP [address] [place] [address] 678465 Assigned Behavioral Health Provider 02/28/25 Gavi Nieto PA-C [address] [place] [address] [phone] Physician Twisting Operator Dermatology 03/19/25 documented as of this encounter
--- OUTSIDE RECORDS SUMMARY | 2025-06-10 11:38 | XMS_ITS | Encounter Summary ---
Author Organization [facility] Address [address] [place] [address] Care Team Providers Care Chief Writer Name Role Phone Rio Jaquez MD Primary Care Provider Barry Kilpatrick MD Unavailable Michelle Henderson RN Unavailable [phone] Rio Jaquez MD Unavailable [phone] Jemima Jaramillo MD Unavailable Unavai Kelley Bautista RN Unavailable [phone] Sydnee Saleem MD Unavailable [phone] Karlene Moya MD Unavailable [phone] Wilbert Quintero OD Unavailable [phone] Rod Gauthier DPM Unavailable [phone] Nallely Hogue RN Unavailable Unavailable Larisa Vargas RN Unavailable Unavailable Francisco Lott MD Unavailable [phone] Greg Ortega MD Unavailable [phone] Jan Mahmood MD Unavailable [phone] Brandt Quintana MD Unavailable [phone] Jan Mahmood MD Unavailable Rio Jaquez [...] MD Unavailable Joesph Crowe MD Unavailable [phone] Joesph Crowe MD Unavailable [phone] Adonay Haq MD Unavailable [phone] Denilson Srinivasan MD Unavailable [phone] Jason Alvares MD Unavailable Ruth Riddle DPM, Podiatry /Foot and Ankle Surgery Unavailable Omar Carmona MD Primary Care Provider [phone] Jignesh Mathias MD Unavailable Adonay Haq MD Unavailable [phone] Omar Carmona MD Unavailable Jason Alvares MD Unavailable Jignesh Mathias MD Unavailable Ayad Lopez PhD LP Unavailable [phone] Gavi Nieto-C Unavailable [phone] Encounter Details Date Type Department Care Team (Late st Contact Info) Description 09/30/2021 [facility] Hepatology Clinic [address] [address] Jan Mahmood MD [address] [place] [address] Social History Tobacco Use Types Packs/Day Years [...] Answer Date Recorded PHQ-2 Score 2 08/27/2021 [facility] Occupational Stress Questionnaire Answer Date [...] Assigned at Female 09/12/2020 12:05 PM BUS OPERATOR Legal Sex Female 3:26 AM BUS OPERATOR Gender Identity Female 09/12/2020 12:05 PM BUS OPERATOR Sexual Orientation Straight 12/19/2021 10 :44 [...] COVID-19? No / Unsure 09/09/2021 11:42 AM BUS OPERATOR documented as of this encounter Plan of Treatment Upcoming Encounters Date Type Department Care Team (Late st Contact Info) Description 06/13/2025 6:00 PM BUS OPERATOR Ancillary Procedure [facility] CT Clinic [address] [place] [address] Omar Carmona MD [address] [place] [address] [phone] 06/14/2025 4:00 PM BUS OPERATOR Office Visit [facility] [address] [place] [address] Omar Carmona MD [address] [place] [address] 06/15/2025 12:45 PM BUS OPERATOR Therapy Visit [facility] 150 [place] [phone] Jason Alvares MD [address] [place] [address] Chaya Castillo, OTR FV [address] [phone] 06/19/2025 10:30 AM BUS OPERATOR Virtual Visit [facility] [address] [place] [address] 4th [place] [phone] Omar Carmona MD [address] [place] [address] Gerson Santos [facility] 06/26/2025 11:00 AM BUS OPERATOR Therapy Visit [address] [phone] Jason Alvares MD [address] [place] [address] Chaya Castillo, OTR [facility] 150 [place] [address] 07/09/2025 12:45 PM BUS OPERATOR Therapy Visit [address] [phone] Jason Alvares MD [address] [place] [address] 774265 Chaya Castillo, OTR [address] [address] 07/18/2025 3:00 PM BUS OPERATOR Office Visit [facility] Heart [address] [phone] Adonay Chapman APRN SMALL BRAKE FORM OPERATOR 500 [place], [place] 939395 11/05/2025 12:30 PM CDT Lab [facility] [address] [place] [phone] 11/05/2025 1:45 PM CDT Office Visit [facility] Dermatology [address] [place] [phone] Gavi Nieto, PANavinC Dermatology [address] [place] [address] [phone] 11/20/2025 10:30 AM CDT Virtual Visit [address] [address] Marquise Hanley MD [address] [place] [address] 626105 documented as of this encounter Goals Goal [...] Total Score: 5 08/27/19 22 9:25 AM BUS OPERATOR documented as of this encounter Care Teams Chief Writer Relationship Specialty Start Date End Date Rio Jaquez MD [address] [place] [address] 52958 PCP - General Family Practice 12/02/10 07/13/24 Omar Carmona MD [address] [place] [address]7728 PCP - General Family Medicine 07/14/24 Barry Kilpatrick MD [address] [place] [address] [id number] [place], [place] 033655 Neurology 07/19/14 Michelle Henderson RN Nurse Coordinator Neurology 07/19/14 iRo Jaquez MD [address] [place] [address] 827625 Family Practice 10/15/14 Jemima Jaramillo MD business development specialist 11/20/14 Kelley Chin, TANIA [address] 775685 Nurse Coordinator Cardiology 11/04/15 Sydnee Saleem MD 420 [facility] 508 [place], [place] 516015 Cardiology 11/04/15 Karlene Moya MD [address] [place] [address] 849125 Ophthalmology 06/24/17 Wilbert Quintero, OD [address] [place] [address] 13565 Optometry 06/24/17 Rod Gauthier DPM [address] [place] [address] 055[address] Sewer Pipe Cleaner Primary Podiatric Medicine 06/21/18 Nallely Hogue, RN Registered Nurse 02/20/19 11/23/22 Larisa Vargas, TANIA Specialty Food Service Substitute Cardiology 04/18/19 03/06/22 Francisco Lott MD [address] [place] [address] 15541 Assigned Rheumatology Provider 05/31/20 12/13/21 Greg Ortega MD [address] [place] [address]326 Assigned Surgical Provider 06/23/20 12/06/21 Jan Mahmood MD [address] [place] [address] 35825 Gastroenterology 11/05/20 Brandt Quinatna MD [address] [place] [address] Resident 11/05/20 Jan Mahmood MD [address] [place] [address] 16877 Assigned Gastroenterology Provider 12/01/20 Rio Jaquez MD [address] [place] [address] 15153 Assigned PCP 11/17/20 09/30/24 Dom Eason MD [address] [place] [address]995 Internal Medicine 12/02/20 Jayla Plaza, RN Specialty Food Service Substitute Hepatology 01/09/21 02/13/24 Sydnee Saleem MD 6550 [facility] [address] [place] [address] Assigned Heart and Vascular Provider 02/02/21 07/24/22 Pahn Coello MD Assigned Neuroscience Provider 02/21/21 11/22/21 [place] [address] [place] [address] Assigned Infectious Disease Provider 02/21/21 03/06/22 Dom Eason MD [address] [place] [address] Assigned Nephrology Provider 04/20/21 01/02/22 Jaimie Vernon, TANIA Specialty Food Service Substitute Cardiology 10/28/21 Ruth Riddle DPM, Podiatry/Foot and Ankle Surgery [address] [address] Assigned Musculoskeletal Provider 11/30/21 09/30/23 Luis [place] MD [address] [place] [address] 13049 Assigned Neuroscience Provider 11/23/21 01/02/22 Jason Alvares MD [address] [place] [address]23[address] Assigned Neuroscience Provider 01/03/22 05/15/22 Marquise Hanley MD [address] [place] [address]48 Endocrinology, Diabetes, and Metabolism 03/05/22 Vlad Ramey MD [address] [place] [address] 177225 Cardiovascular Disease 05/07/22 Joesph Crowe MD [address] [place] [address] 75847 Surgery 05/07/22 Luis [place] MD [address] [place] [address] 81385 Assigned Neuroscience Provider 05/16/22 05/14/23 Michelle Padilla RN Specialty Food Service Substitute Cardiology 07/03/22 Vlad Ramey MD [address] [place] [address] 402185 Assigned Heart and Vascular Provider 07/25/22 05/28/23 Marquise Hanley MD [address] [place] [address] 87170 Assigned Endocrinology Provider 08/15/22 Dom Eason MD [address] [place] [address] 50836 Assigned Nephrology Provider 11/28/22 02/19/23 Wagner Oliver MD [address] [place] [address] Critical Care 12/15/22 Laura Epperson NP 717 [facility] 1932 [place] [address] Assigned Nephrology Provider 02/20/23 08/30/24 Thom Taveras MD [address] [place], [place] 3064105 [place] [address] Assigned Cancer Care Provider 02/06/23 08/20/23 Joesph Crowe MD [address] [place] [address] 13300 Surgery 03/17/23 Joesph Crowe MD [address] [place] [address] 75488 Assigned Surgical Provider 04/03/23 09/30/24 Adonay Haq MD [address] [place] [address] 85079 Internal Medicine 06/14/23OctoberDenilson MD [address] [facility] [address] [place] [address] Assigned Heart and Vascular Provider 05/29/23 11/28/24 Jason Alvares MD 420 [facility] 295 [place] [address] Assigned Neuroscience Provider 05/15/23 11/28/24 Ruth Riddle DPM, Podiatry/Foot and Ankle Surgery [address] RODRIGUEZ [address] [place] [address] 732[address] Assigned Musculoskeletal Provider 10/22/23 Jignesh Mathias MD [address] [place] [address] 73522 Gastroenterology 09/25/24 Adonay Haq MD [address] [place] [address] 238555 Assigned PCP 10/01/24 12/28/24 Omar Carmona MD [address] [place] [address] 810565 Assigned PCP 12/29/24 Jason Alvares MD [address] [place] [address] 336405 Assigned Neuroscience Provider 12/29/24 Jignesh Mathias MD [address] [place] [address] 730955 Assigned Surgical Provider 12/29/24 Ayad Lopez, PhD LP [address] [place] [address] 817735 Assigned Behavioral Health Provider 02/28/25 Gavi Nieto PANavinC [address] [place] [address] 188175 Physician Tear Down Man Dermatology 03/19/25 documented as of this encounter
--- OUTSIDE RECORDS SUMMARY | 2025-06-10 11:38 | XMS_ITS | Encounter Summary ---
Author Organization [place] Address [address] [place] [address]11 Care Team Providers Care Baton Teacher Name Role Phone Rio Jaquez MD Primary Care Provider Barry Kilpatrick MD Unavailable Michelle Henderson RN Unavailable [phone] Rio Jaquez MD Unavailable [phone] Jemima Jaramillo MD Unavailable Unavai Kelley Bautista RN Unavailable [phone] Sydnee Saleem MD Unavailable [phone] Karlene Moya MD Unavailable [phone] Wilbert Quintero OD Unavailable +[phone] Rod Gauthier DPM Unavailable +[phone] Nallely Hogue RN Unavailable Unavailable Larisa Vargas RN Unavailable Unavailable Francisco Lott MD Unavailable +[phone] Greg Ortega MD Unavailable [phone] Jan Mahmood MD Unavailable [phone] Brandt Quintana MD Unavailable [phone] Jan Mahmood MD Unavailable Rio Jaquez [...] Unavailable [phone] Thom Taveras MD Unavailable [phone] Joesph Crowe MD Unavailable [phone] Joesph Crowe MD Unavailable [phone] Adonay Haq MD Unavailable [phone] Denilson Srinivasan MD Unavailable [phone] Jason Alvares MD Unavailable Ruth Riddle DPM, Podiatry /Foot and Ankle Surgery Unavailable Omar Carmona MD Primary Care Provider [phone] Jignesh Mathias MD Unavailable Adonay Haq MD Unavailable [phone] Omar Carmona MD Unavailable Jason Alvares MD Unavailable Jignesh Mathias MD Unavailable Ayad Lopez PhD LP Unavailable [phone] Gavi Nieto-C Unavailable +[phone] Encounter Details Date Type Department Care Team (Late st Contact Info) Description 09/17/2021 [facility] [address] [address] Jan Mahmood MD [address] [place] [address] Social History Tobacco Use Types Packs/Day Years [...] Score 2 08/27/2021 [facility] Occupational Stress Questionnaire Answer Date [...] Sex Assigned at Female 09/12/2020 12:05 PM OUTREACH CONSULTANT Legal Sex Female 3:26 AM OUTREACH CONSULTANT Gender Identity Female 09/12/2020 12:05 PM OUTREACH CONSULTANT Sexual Orientation Straight 12/19/2021 10 :44 [...] COVID-19? No / Unsure 09/09/2021 11:42 AM OUTREACH CONSULTANT documented as of this encounter Plan of Treatment Upcoming Encounters Date Type Department Care Team (Late st Contact Info) Description 06/13/2025 6:00 PM OUTREACH CONSULTANT Ancillary Procedure [facility] [address] [place] [address] Omar Carmona MD [address] [place] [address] 188965 06/14/2025 4:00 PM OUTREACH CONSULTANT Office Visit [facility] [address] [place] [address] Omar Carmona MD [address] [place] [address] 06/15/2025 12:45 PM OUTREACH CONSULTANT Therapy Visit [facility] [address] [place] [phone] Jason Alvares MD [address] [place] [address] Chaya Castillo, OTR FV [address] 272197 06/19/2025 10:30 AM OUTREACH CONSULTANT Virtual Visit [facility] [address] [place] [address] 4th [place] [phone] Omar Carmona MD [address] [place] [address] Gerson Santos [facility] 06/26/2025 11:00 AM OUTREACH CONSULTANT Therapy Visit [address] [phone] Jason Alvares MD [address] [place] [address] Chaya Castillo, OTR [facility] 150 [place] [address] 07/09/2025 12:45 PM OUTREACH CONSULTANT Therapy Visit [address] [phone] Jason Alvares MD [address] [place] [address] 039765 Chaya Castillo, OTR [address] [address] 07/18/2025 3:00 PM OUTREACH CONSULTANT Office Visit [facility] Heart [address] [phone] Adonay Chapman APRN LEAD PERFORMANCE SUPPORT ANALYST 500 [place], [place] [address]03[address] 11/05/2025 12:30 PM CDT Lab [facility] Lab [address] [place] [phone] 11/05/2025 1:45 PM CDT Office Visit [facility] Dermatology [address] [place] [phone] Gavi Nieto, PANavinC Dermatology [address] [place] [address] [id number] 11/20/2025 10:30 AM CDT Virtual Visit [address] [address] Marquise Hanley MD [address] [place] [address] 502175 documented as of this encounter Goals Goal [...] Total Score: 5 08/27/19 22 9:25 AM OUTREACH CONSULTANT documented as of this encounter Care Teams Baton Teacher Relationship Specialty Start Date End Date Rio Jaquez MD [address] [place] [address] 40720 PCP - General Family Practice 12/02/10 07/13/24 Omar Carmona MD [address] [place] [address] 40624 PCP - General Family Medicine 07/14/24 Barry Kilpatrick MD [address] [place] [address] [id number] [place], [place] 532135 Neurology 07/19/14 Michelle Henderson RN Nurse Coordinator Neurology 07/19/14 Rio Jaquez MD [address] [place] [address] 945085 Family Practice 10/15/14 Jemima Jaramillo MD mechanic industrial truck 11/20/14 Kelley Chin, TANIA [address] 660045 Nurse Coordinator Cardiology 11/04/15 Sydnee Saleem MD 420 [facility] 508 [place], [place] 755515 Cardiology 11/04/15 Karlene Moya MD [address] [place] [address] 728645 Ophthalmology 06/24/17 Wilbert Quintero, OD [address] [place] [address] 03898 Optometry 06/24/17 Rod Gauthier DPM [address] [place] [address] 79406 Fabrication Inspector Primary Podiatric Medicine 06/21/18 Nallely Hogue, RN Registered Nurse 02/20/19 11/23/22 Lairsa Vargas, TANIA Specialty Laryngologist Cardiology 04/18/19 03/06/22 Francisco Lott MD [address] [place] [address] 67118 Assigned Rheumatology Provider 05/31/20 12/13/21 Greg Ortega MD [address] [place] [address] 19585 Assigned Surgical Provider 06/23/20 12/06/21 Jan Mahmood MD [address] [place] [address] 9[address] Gastroenterology 11/05/20 Brandt Quintana MD [address] [place] [address] 96909 Resident 11/05/20 Jan Mahmood MD [address] [place] [address] 43410 Assigned Gastroenterology Provider 12/01/20 Rio Jaquez MD [address] [place] [address] 90828 Assigned PCP 11/17/20 09/30/24 Dom Eason MD [address] [place] [address] 7[address]75 Internal Medicine 12/02/20 Jayla Plaza, RN Specialty Laryngologist Hepatology 01/09/21 02/13/24 Sydnee Saleem MD 6550 [facility] [address] [place] [address] Assigned Heart and Vascular Provider 02/02/21 07/24/22 Phan Coello MD Assigned Neuroscience Provider 02/21/21 11/22/21 [place] [address] [place] [address] 70081 Assigned Infectious Disease Provider 02/21/21 03/06/22 Dom Eason MD [address] [place] [address] 67654 Assigned Nephrology Provider 04/20/21 01/02/22 Jaimie Vernon, TANIA Specialty Laryngologist Cardiology 10/28/21 Ruth Riddle DPM, Podiatry/Foot and Ankle Surgery [address] [address] Assigned Musculoskeletal Provider 11/30/21 09/30/23 Luis Arrington MD [address] [place] [address] 74890 Assigned Neuroscience Provider 11/23/21 01/02/22 Jason Alvares MD [address] [place] [address] 12904 Assigned Neuroscience Provider 01/03/22 05/15/22 Marquise Hanley MD [address] [place] [address] 36166 Endocrinology, Diabetes, and Metabolism 03/05/22 Vlad Ramey MD [address] [place] [address] 673135 Cardiovascular Disease 05/07/22 Joesph Crowe MD [address] [place] [address] 05706 Surgery 05/07/22 Luis Arrington MD [address] [place] [address] 90737 Assigned Neuroscience Provider 05/16/22 05/14/23 Michelle Padilla RN Specialty Laryngologist Cardiology 07/03/22 Vlad Ramey MD [address] [place] [address] 602975 Assigned Heart and Vascular Provider 07/25/22 05/28/23 Marquise Hanley MD [address] [place] [address] 73964 Assigned Endocrinology Provider 08/15/22 Dom Eason MD [address] [place] [address] 07447 Assigned Nephrology Provider 11/28/22 02/19/23 Wagner Oliver MD [address] [place] [address] Critical Care 12/15/22 Laura Epperson NP 717 [facility] [address] [place] [address] Assigned Nephrology Provider 02/20/23 08/30/24 Thom Taveras MD [address] [place], [place] [phone] [place] [address] Assigned Cancer Care Provider 02/06/23 08/20/23 Joesph Crowe MD [address] [place] [address] 40724 Surgery 03/17/23 Joesph Crowe MD [address] [place] [address] 87670 Assigned Surgical Provider 04/03/23 09/30/24 Adonay Haq MD [address] [place] [address] 92168 Internal Medicine 06/14/23OctobereDnilson MD [address] [facility] [address] [place] [address] Assigned Heart and Vascular Provider 05/29/23 11/28/24 Jason Alvares MD 420 [facility] 295 [place] [address] Assigned Neuroscience Provider 05/15/23 11/28/24 Ruth Riddle DPM, Podiatry/Foot and Ankle Surgery [address] [place] [address] [place] [address] 52894 Assigned Musculoskeletal Provider 10/22/23 Jignesh Mathias MD [address] [place] [address] 78034 Gastroenterology 09/25/24 Adonay Haq MD [address] [place] [address] 362375 Assigned PCP 10/01/24 12/28/24 Omar Carmona MD [address] [place] [address] 227665 Assigned PCP 12/29/24 Jason Alvares MD [address] [place] [address] 833845 Assigned Neuroscience Provider 12/29/24 Jignesh Mathias MD [address] [place] [address] 752325 Assigned Surgical Provider 12/29/24 Ayad Lopez, PhD LP [address] [place] [address] 836745 Assigned Behavioral Health Provider 02/28/25 Gavi Nieto PANavinC [address] [place] [address] [phone] Physician Fire Management Specialist Dermatology 03/19/25 documented as of this encounter
--- OUTSIDE RECORDS SUMMARY | 2025-06-10 11:38 | XMS_ITS | Encounter Summary ---
Author Organization [place] Address [address] [place] [address] 42384 Care Team Providers Care Research Technician Name Role Phone Rio Jaquez MD Primary Care Provider Barry Kilpatrick MD Unavailable Michelle Henderson RN Unavailable [phone] Rio Jaquez MD Unavailable [phone] Jemima Jaramillo MD Unavailable Unavai Kelley Bautista RN Unavailable [phone] Sydnee Saleem MD Unavailable [phone] Karlene Moya MD Unavailable [phone] Wilbert Quintero OD Unavailable [phone] Rod Gauthier DPM Unavailable [phone] Nallely Hogue RN Unavailable Unavailable Larisa Vargas RN Unavailable Unavailable Francisco Lott MD Unavailable [phone] Greg Ortega MD Unavailable [phone] Jan Mahmood MD Unavailable [phone] Brandt Quintana MD Unavailable [phone] Jan Mahmood MD Unavailable Rio Jaquez [...] MD Unavailable Joesph Crowe MD Unavailable [phone] Luis Arrington MD Unavailable Michelle Padilla RN Unavailable Unavaila ble Vlad Ramey MD Unavailable Marquise Hanley MD Unavailable [phone] Dom Eason MD Unavailable Wagner Oliver MD Unavailable Laura Epperson NP Unavailable [phone] Thom Taveras MD Unavailable Joesph Crowe MD Unavailable [phone] Joesph Crowe MD Unavailable [phone] Adonay Haq MD Unavailable [phone] Denilson Srinivasan MD Unavailable [phone] Jason Alvares MD Unavailable Ruth RiddleM, Podiatry /Foot and Ankle Surgery Unavailable Omar Carmona MD Primary Care Provider [phone] Jignesh Mathias MD Unavailable Adonay Haq MD Unavailable [phone] Omar Carmona MD Unavailable [phone] Jason Alvares MD Unavailable Jignesh Mathias MD Unavailable Ayad Lopez PhD LP Unavailable [phone] Gavi Nieto-C Unavailable [phone] Encounter Details Date Type Department Care Team [...] Date Recorded PHQ-2 Score 2 08/27/2021 [facility] [...] Sex Assigned at Female 09/12/2020 12:05 PM FOOT ROENTGENOLOGIST Legal Sex Female 3:26 AM FOOT ROENTGENOLOGIST Gender Identity Female 09/12/2020 12:05 PM FOOT ROENTGENOLOGIST Sexual Orientation Straight 12/19/2021 10 :44 AM [...] COVID-19? No / Unsure 09/09/2021 11:42 AM FOOT ROENTGENOLOGIST documented as of this encounter Plan of Treatment Upcoming Encounters Date Type Department Care Team (Late st Contact Info) Description 06/13/2025 6:00 PM FOOT ROENTGENOLOGIST Ancillary Procedure [facility] Imaging Center CT Clinic [address]st [place] [phone] Omar Carmona MD [address] [place] [address]125 06/14/2025 4:00 PM FOOT ROENTGENOLOGIST Office Visit [facility] [address]th [place] [phone] Omar Carmona MD [address] [place] [address] 77424 06/15/2025 12:45 PM FOOT ROENTGENOLOGIST [facility] [place] [address] [facility] [place] [address] Jason Alvares MD [address] [place] [address] 996005 Chaya Castillo, OTR [facility] 150 [place], [place] 923117 06/19/2025 10:30 AM FOOT ROENTGENOLOGIST Virtual Visit [facility] [address] [place] [address] 4th [place] [address] Omar Carmona MD [address] [place] [address] Gerson Santos [facility] 06/26/2025 11:00 AM FOOT ROENTGENOLOGIST [facility] 150 [place] [phone] Jasno Alvares MD [address] [place] [address] 430465 Chaya Castillo, OTR [facility] 150 [place] [address] 07/09/2025 12:45 PM FOOT ROENTGENOLOGIST [facility] 150 [place] [phone] Jason Alvares MD [address] [place] [address] 863405 Chaya Castillo, OTR FV [facility] [place] 150 [place] [address] 07/18/2025 3:00 PM FOOT ROENTGENOLOGIST Office Visit [facility] Heart Clinic [address] [phone] Adonay Chapman APRN HOME ECONOMICS EXPERT 500 [place] [address] 11/05/2025 12:30 PM CDT Lab [facility] Lab [address] [place] [address] 11/05/2025 1:45 PM CDT Office Visit [facility] Dermatology Clinic [address]rd [place] [phone] Gavi Nieto PA-C Dermatology [address] [place] [address]70 11/20/2025 10:30 AM CDT Virtual Visit [address] [place] [phone] Marquise Hanley MD [address] [place] [address] 77897 documented as of this encounter Goals Goal [...] Total Score: 5 08/27/19 22 9:25 AM FOOT ROENTGENOLOGIST documented as of this encounter Care Teams Research Technician Relationship Specialty Start Date End Date Rio Jaquez MD [address] [place] [address] 70098 PCP - General Family Practice 12/02/10 07/13/24 Omar Carmona MD [address] [place] [address]455 PCP - General [facility] Medicine 07/14/24 Barry Kilpatrick MD [address] [place] [address] [id number] [place], [place] 693365 Neurology 07/19/14 Michelle Henderson I, RN Nurse Coordinator Neurology 07/19/14 Rio Jaquez MD [address] [place] [address] 4 [place], [place] 515915 Family Practice 10/15/14 Jemima Jaramillo MD engine hostler 11/20/14 Kelley Chin, TANIA [address] [address] Nurse Coordinator Cardiology 11/04/15 Sydnee Saleem MD 420 [facility] 508 [place], [place] 443395 Cardiology 11/04/15 Karlene Moya MD [address] [place] [address] 224255 Ophthalmology 06/24/17 Wilbert Quintero, PETEY [address] [place] [address] 869755 Optometry 06/24/17 Rod Gauthier DPM [address] [place] [address] 48629 Examination Supervisor Primary Podiatric Medicine 06/21/18 Nallely Hogue, RN Registered Nurse 02/20/19 11/23/22 Larisa Vargas, RN Specialty Mdm Sr Cardiology 04/18/19 03/06/22 Francisco oLtt MD 515 [facility] 88 [place] [address] Assigned Rheumatology Provider 05/31/20 12/13/21 Greg Ortega MD 9 [place] [address] Assigned Surgical Provider 06/23/20 12/06/21 Jan Mahmood MD [address] [facility] 2A [place] [address] Gastroenterology 11/05/20 Brandt Quintana MD [facility]4 [place] [address] Resident 11/05/20 Jan Mahmood MD [address] [facility] 2A [place] [address] Assigned Gastroenterology Provider 12/01/20 Rio Jaquez MD [address] [address] Assigned PCP 11/17/20 09/30/24 Dom Eason MD 717 [facility] 353 [place] [address] Internal Medicine 12/02/20 Jayla Plaza, RN Specialty Mdm Sr Hepatology 01/09/21 02/13/24 Sydnee Saleem MD 6550 [facility] [address] [place] [address] Assigned Heart and Vascular Provider 02/02/21 07/24/22 Phan Coello MD Assigned Neuroscience Provider 02/21/21 11/22/21 Cristian Barragan MD 2945 [place] [address] Assigned Infectious Disease Provider 02/21/21 03/06/22 Dom Eason MD [address] [place] [address] 353 [place] [address] Assigned Nephrology Provider 04/20/21 01/02/22 Jaimie Vernon, TANIA Specialty Mdm Sr Cardiology 10/28/21 Ruth Riddle, DPM, Podiatry/Foot and Ankle Surgery [address] [facility] 300 [place], [place] 137077 Assigned Musculoskeletal Provider 11/30/21 09/30/23 Luis Arrington MD 909 [place], [place] 449025 Assigned Neuroscience Provider 11/23/21 01/02/22 Jason Alvares MD 420 [facility] 295 [place], [place] 343415 Assigned Neuroscience Provider 01/03/22 05/15/22 Marquise Hanley MD [address] [place] [address] 79040 Endocrinology, Diabetes, and Metabolism 03/05/22 Vlad Ramey MD [address] [place] [address] 31752 Cardiovascular Disease 05/07/22 Joesph Crowe MD [address] [place] [address] 79790 Surgery 05/07/22 Luis Arrington MD [address] [place] [address] 73400 Assigned Neuroscience Provider 05/16/22 05/14/23 Michelle Padilla RN Specialty Mdm Sr Cardiology 07/03/22 Vlad Ramey MD [address] [place] [address] 11918 Assigned Heart and Vascular Provider 07/25/22 05/28/23 Marquise Hanley MD [address] [place] [address] 27923 Assigned Endocrinology Provider 08/15/22 Dom Eason MD [address] [place] [address] 64278 Assigned Nephrology Provider 11/28/22 02/19/23 Wagner Oliver MD [address] [place] [address] Critical Care 12/15/22 Laura Epperson NP 717 [facility] 1932 [place] [address] Assigned Nephrology Provider 02/20/23 08/30/24 Thom Taveras MD [address] [facility] [place], [place] 851114 Assigned Cancer Care Provider 02/06/23 08/20/23 Joesph Crowe MD [address] [place] [address] 636185 Surgery 03/17/23 Joesph Crowe MD [address] [place] [address] 690375 Assigned Surgical Provider 04/03/23 09/30/24 Adonay Haq MD [address] [place] [address] 105955 Internal Medicine 06/14/23OctoberDenilson MD [address] [facility] [address] [place], [place] 951655 Assigned Heart and Vascular Provider 05/29/23 11/28/24 Jason Alvares MD 420 [facility] 295 [place], [place] 558125 Assigned Neuroscience Provider 05/15/23 11/28/24 Ruth Riddle, DPM, Podiatry/Foot and Ankle Surgery [address] [place], [place] 731547 Assigned Musculoskeletal Provider 10/22/23 Jignesh Mathias MD [address] [place] [address] 582765 Gastroenterology 09/25/24 Adonay Haq MD [address] [place] [address]455 Assigned PCP 10/01/24 12/28/24 Omar Carmona MD [address] [place] [address] 55455 Assigned PCP 12/29/24 Jason Alvares MD [address] [place] [address]455 Assigned Neuroscience Provider 12/29/24 Jignesh Mathias MD [address] [place] [address] 880865 Assigned Surgical Provider 12/29/24 Ayad Lopez, PhD LP [address] [place] [address] 366585 Assigned Behavioral Health Provider 02/28/25 Gavi Nieto PANavinC [address] [place] [address] Physician Bacon Skin Lifter Dermatology 03/19/25 documented as of this encounter
--- OUTSIDE RECORDS SUMMARY | 2025-06-10 11:38 | XMS_ITS | Encounter Summary ---
Author Organization [facility] Address [address] [place] [address]38 Care Team Providers Care Dry Placer Machine Operator Name Role Phone Rio Jaquez MD Primary Care Provider Barry Kilpatrick MD Unavailable Michelle Henderson RN Unavailable [phone] Rio Jaquez MD Unavailable [phone] Jemima Jaramillo MD Unavailable Unavai Kelley Bautista RN Unavailable [phone] Sydnee Saleem MD Unavailable [phone] Karlene Moya MD Unavailable [phone] Wilbert Quintero OD Unavailable [phone] Rod Gauthier DPM Unavailable [phone] Nallely Hogue RN Unavailable Unavailable Larisa Vargas RN Unavailable Unavailable Francisco Lott MD Unavailable [phone] Greg Ortega MD Unavailable [phone] Jan Mahmood MD Unavailable [phone] Brandt Quintana MD Unavailable [phone] Jan Mahmood MD Unavailable Rio Jaquez MD Unavailable Dom Eason MD Unavailable [phone] Jayla Plaza RN Unavailable Jayla Plaza RN Unavailable Sydnee Saleem MD Unavailable Phan Coello MD Unavailable Unavailable Cristian Barragan MD Unavailable Dom Eason MD Unavailable [phone] Jaimie Vernon RN Unavailable Unavailable Ruth Riddle DPM, Podiatry /Foot and Ankle Surgery Unavailable Luis Arrington MD Unavailable Jason Alvares MD Unavailable Marquise Hanley MD Unavailable Vlad Ramey MD Unavailable Joesph Crowe MD Unavailable Luis Arrington MD Unavailable Michelle Padilla RN Unavailable Unavaila ble Vlad Ramey MD Unavailable Marquise Hanley MD Unavailable Dom Eason MD Unavailable Wagner Oliver MD Unavailable [phone] Laura Epperson NP Unavailable [phone] Thom Taveras MD Unavailable Joesph Crowe MD Unavailable [phone] Joesph Crowe MD Unavailable Adonay Haq MD Unavailable OctoberDenilson MD Unavailable Jason Alvares MD Unavailable Ruth Riddle DPM, Podiatry /Foot and Ankle Surgery Unavailable Omar Carmona MD Primary Care Provider Jignesh Mathias MD Unavailable Adonay Haq MD Unavailable Omar Carmona MD Unavailable [phone] Jason Alvares MD Unavailable Jignesh Mathias MD Unavailable Ayad Lopez PhD LP Unavailable [phone] Gavi Nieto PA-C Unavailable Encounter Details Date Type Department Care Team (Late st Contact Info) Description 11/25/2020 MyC Medical Advice [facility] [address] [place] [address] Rio Jaquez MD [address] [place] [address] 4 [place] [address] Social History Tobacco Use Types [...] Sex Assigned at Female 09/12/2020 12:05 PM FISHER Legal Sex Female 3:26 AM FISHER Gender Identity Female 09/12/2020 12:05 PM FISHER Sexual Orientation Straight 12/19/2021 10 :44 AM [...] Jaquez. Patient confirmed appointment, will do via Fixed - Parking Tickets. Eliana Chacon, Property Administrator, November 26, 2020 at 1:33 PM documented in this encounter Plan of Treatment Upcoming Encounters Date Type Department Care Team (Late st Contact Info) Description 06/13/2025 6:00 PM FISHER Ancillary Procedure [facility] [address] [place] [phone] Omar Carmona MD [address] [place] [address] [id number] 06/14/2025 4:00 PM FISHER Office Visit [facility] [address] [place] [phone] Omar Carmona MD [address] [place] [address] [phone] 06/15/2025 12:45 PM FISHER Therapy Visit [facility] [address] [place] [phone] Jason Alvares MD [address] [place] [address] 901285 Chaya Castillo, [facility] [address] [place], [place] 0[address] 06/19/2025 10:30 AM FISHER Virtual Visit [facility] [address] [place] [address] [address] [place] [phone] Omar Carmona MD [address] [place] [address] Gerson Santos, [facility] 06/26/2025 11:00 AM FISHER Therapy [facility] [address] [place] [phone] Jason Alvares MD [address] [place] [address] [phone] Chaya Castillo, [facility] [address] [place] [address] 07/09/2025 12:45 PM FISHER Therapy Visit [facility] [address] [facility] [place] [phone] Jason Alvares MD [address] [place] [address] [id number] Chaya Castillo [facility] [address] [place] [address] 07/18/2025 3:00 PM FISHER Office Visit [facility] [address] [phone] Adonay Chapman APRN [address] [id number] 11/05/2025 12:30 PM CDT Lab [facility] [address] [phone] 11/05/2025 1:45 PM CDT Office Visit [facility] [place] [address] [facility] 3rd [place] [phone] Gavi Nieto PA-C Dermatology [address] [place] [address] 11/20/2025 10:30 AM CDT Virtual Visit [address] [phone] Marquise Hanley MD [address] [place] [address] [phone] documented as of this encounter Goals Goal [...] Depression Total Score: 12 021 9:43 AM FISHER documented as of this encounter Care Teams Dry Placer Machine Operator Relationship Specialty Start Date End Date Rio Jaquez MD [address] [place] [address] [place] [address] [place] [address] PCP - General Family Practice 12/02/10 07/13/24 Omar Carmona MD [address] [place] [address] PCP - General Family Medicine 07/14/24 Barry Kilpatrick MD [address] [place] [address] [id number] [place], [place] 667[address] Neurology 07/19/14 Michelle Henderson I, RN Nurse Coordinator Neurology 07/19/14 Rio Jaquez MD [address] [place] [address] [place] [address] [place], [place] [phone] Family Practice 10/15/14 Jemima Jaramillo MD pilot plant research technician 11/20/14 Kelley Chin, TANIA [address] [phone] Nurse Coordinator Cardiology 11/04/15 Sydnee Saleem MD [address] [place] [address] 508 [place], [place] 738[address] Cardiology 11/04/15 Karlene Moya MD [address] [place] [address] Ophthalmology 06/24/17 Wilbert Quintero, OD [address] [place] [address] 038115 Optometry 06/24/17 Rod Gauthier DPM [address] [place] [address] [phone] Surgery Teacher Primary Podiatric Medicine 06/21/18 Nallely Hogue, RN Registered Nurse 02/20/19 11/23/22 Larisa Vargas, TANIA Specialty Tube Roller Cardiology 04/18/19 03/06/22 Francisco Lott MD [address] [place] [address] 88 [place] [address] Assigned Rheumatology Provider 05/31/20 12/13/21 Greg Ortega MD [address] [place] [address] Assigned Surgical Provider 06/23/20 12/06/21 Jan Mahmood MD [address] [place] [address] [address] [place] [address] Gastroenterology 11/05/20 Brandt Quintana MD [address] [place] [address] Resident 11/05/20 Jan Mahmood MD [address] [place] [address] [address] [place] [address] Assigned Gastroenterology Provider 12/01/20 Rio Jaquez MD 9 [facility] 4 [place] [address] Assigned PCP 11/17/20 09/30/24 Dom Eason MD 7 [facility] [address] [place] [address] Internal Medicine 12/02/20 Jayla Plaza, RN Specialty Tube Roller Hepatology 01/09/21 02/13/24 Jayla Plaza, RN Specialty Tube Roller Hepatology 01/10/21 01/10/21 Sydnee Saleem MD [address] [address] Assigned Heart and Vascular Provider 02/02/21 07/24/22 Phan Coello MD Assigned Neuroscience Provider 02/21/21 11/22/21 Cristian Barragan MD [address] [place] [address] Assigned Infectious Disease Provider 02/21/21 03/06/22 Dom Eason MD [address] [place] [address] 353 [place] [address] Assigned Nephrology Provider 04/20/21 01/02/22 Jaimie Vernon, TANIA Specialty Tube Roller Cardiology 10/28/21 Ruth Riddle, DPM, Podiatry/Foot and Ankle Surgery [address] [facility] [address] [place], [place] 457807 Assigned Musculoskeletal Provider 11/30/21 09/30/23 Luis Arrington MD [address] [place] [address] [phone] Assigned Neuroscience Provider 11/23/21 01/02/22 Jason Alvares MD [address] [facility] [address] [place], [place] 8367[address] Assigned Neuroscience Provider 01/03/22 05/15/22 Marquise Hanley MD [address] [place] [address] Endocrinology, Diabetes, and Metabolism 03/05/22 Vlad Ramey MD [address] [place] [address] 68051 Cardiovascular Disease 05/07/22 Joesph Crowe MD [address] [place] [address] Surgery 05/07/22 Luis Arrington MD [address] [place] [address] 0119[address] Assigned Neuroscience Provider 05/16/22 05/14/23 Michelle Padilla, RN Specialty Tube Roller Cardiology 07/03/22 Vlad Ramey MD [address] [place] [address]51 Assigned Heart and Vascular Provider 07/25/22 05/28/23 Marquise Hanley MD [address] [place] [address] 8[address] Assigned Endocrinology Provider 08/15/22 Dom Eason MD 7 [facility] [address] [place] [address] Assigned Nephrology Provider 11/28/22 02/19/23 Wagner Oliver MD [address] [address] Critical Care 12/15/22 Laura Epperson, LULU [address] [facility] [address] [place] [address] Assigned Nephrology Provider 02/20/23 08/30/24 Thom Taveras MD [facility] [address] [place] [address] Assigned Cancer Care Provider 02/06/23 08/20/23 Joesph Crowe MD [address] [place] [address] 8[address]57 MD Surgery 03/17/23 Joesph Crowe MD [address] [place] [address] 13451 Assigned Surgical Provider 04/03/23 09/30/24 Adonay Haq MD [address] [place] [address] [phone] Internal Medicine 06/14/23OctoberDenilson MD [address] [facility] [address] [place], [place] 844065 Assigned Heart and Vascular Provider 05/29/23 11/28/24 Jason Alvares MD [address] [place] [address] [address] [place], [place] 787[address] Assigned Neuroscience Provider 05/15/23 11/28/24 Ruth Riddle DPM, Podiatry/Foot and Ankle Surgery [address] [place] [address] [place], [place] 225587 Assigned Musculoskeletal Provider 10/22/23 Jignesh Mathias MD [address] [place] [address] Gastroenterology 09/25/24 Adonay Haq MD [address] [place] [address] [phone] Assigned PCP 10/01/24 12/28/24 Omar Carmona MD [address] [place] [address] [phone] Assigned PCP 12/29/24 Jason Alvares MD [address] [place] [address] 718165 Assigned Neuroscience Provider 12/29/24 Jignesh Mathias MD [address] [place] [address] 710525 Assigned Surgical Provider 12/29/24 Ayad Lopez, PhD LP [address] [place] [address] [phone] Assigned Behavioral Health Provider 02/28/25 Gavi Nieto PANavinC [address] [place] [address] [phone] Physician Guitar Repairer Dermatology 03/19/25 documented as of this encounter
--- OUTSIDE RECORDS SUMMARY | 2025-06-10 11:38 | XMS_ITS | Encounter Summary ---
Author Organization [place] Address [address] [place] [address] Care Team Providers Care Desktop Publishing Associate Name Role Phone Rio Jaquez MD Primary Care Provider Barry Kilpatrick MD Unavailable Michelle Henderson RN Unavailable [phone] Rio Jaquez MD Unavailable [phone] Jemima Jaramillo MD Unavailable Unavai Kelley Bautista RN Unavailable [phone] Sydnee Saleem MD Unavailable [phone] Karlene Moya MD Unavailable [phone] Wilbert Quintero OD Unavailable [phone] Rod Gauthier DPM Unavailable [phone] Nallely Hogue RN Unavailable Unavailable Larisa Vargas RN Unavailable Unavailable Francisco Lott MD Unavailable [phone] Greg Ortega MD Unavailable [phone] Jan Mahmood MD Unavailable [phone] Brandt Quintana MD Unavailable [phone] Jan Mahmood MD Unavailable Rio Jaquez [...] MD Unavailable Joesph Crowe MD Unavailable [phone] Joesph Crowe MD Unavailable [phone] Adonay Haq MD Unavailable [phone] Denilson Srinivasan MD Unavailable [phone] Jason Alvares MD Unavailable Ruth Riddle DPM, Podiatry /Foot and Ankle Surgery Unavailable Omar Carmona MD Primary Care Provider [phone] Jignesh Mathias MD Unavailable Adonay Haq MD Unavailable [phone] Omar Carmona MD Unavailable [phone] Jason Alvares MD Unavailable Jignesh Mathias MD Unavailable Ayad Lopez PhD LP Unavailable [phone] Gavi Nieto PA-C Unavailable [phone] Encounter Details Date Type Department Care Team (Late st Contact Info) Description 09/09/2021 [facility] [address] [address] iRo Jaquez MD [address] [place] [address] Steatosis of liver (Primary Dx); Hyperlipidemia [...] Sex Assigned at Female 09/12/2020 12:05 PM LAPEL PADDER Legal Sex Female 3:26 AM LAPEL PADDER Gender Identity Female 09/12/2020 12:05 PM LAPEL PADDER Sexual Orientation Straight 12/19/2021 10 :44 AM [...] COVID-19? No / Unsure 09/09/2021 11:42 AM LAPEL PADDER documented as of this encounter Miscellaneous Notes * Telephone Encounter - Rio Jaquez MD - 09/09/2021 1:39 PM LAPEL PADDER Immunization History Administered Date(s) Administered ??? COVID-19,PF,Mela [...] Comprehensive metabolic panel; Future Rio Jaquez MD L PADDER L PADDER documented in this encounter Plan of Treatment Upcoming Encounters Date Type Department Care Team (Late st Contact Info) Description 06/13/2025 6:00 PM LAPEL PADDER Ancillary Procedure [facility] [address] [place] [address] Omar Carmona MD [address] [place] [address] [phone] 06/14/2025 4:00 PM LAPEL PADDER Office Visit [facility] [address] 4th [place] [address] Omar Carmona MD [address] [place] [address] 06/15/2025 12:45 PM LAPEL PADDER [facility] [address] [place] [phone] Jason Alvares MD [address] [place] [address] [phone] Chaya Castillo, OTR FV [address] [phone] 06/19/2025 10:30 AM LAPEL PADDER Virtual Visit [facility] [address] [place] [address] 4th [place] [phone] Omar Carmona MD [address] [place] [address] Gerson Santos [facility] 06/26/2025 11:00 AM LAPEL PADDER Therapy Visit [address] [phone] Jason Alvares MD [address] [place] [address] Chaya Castillo, OTR FV [facility] [address] [place] [address] 07/09/2025 12:45 PM LAPEL PADDER Therapy Visit [address] [phone] Jason Alvares MD [address] [place] [address] [phone] Chaya Castillo LETA [address] [address] 07/18/2025 3:00 PM LAPEL PADDER Office Visit [facility] [address] [phone] Adonay Chapman APRN [facility] [address] [place], [place] [address]28[address] 11/05/2025 12:30 PM CDT Lab [address] [place] [phone] 11/05/2025 1:45 PM CDT Office Visit [facility] Dermatology [address] [place] [phone] Gavi Nieto PA-C Dermatology [address] [place] [address] [phone] 11/20/2025 10:30 AM CDT Virtual Visit [address] [phone] Marquise Hanley MD [address] [place] [address] [phone] documented as of this encounter Goals Goal Patient Goal Type Associated Problems Recent Progress Patient-Stated? Author Quit smoking / using tobacco Lifestyle Rio Will MD Note: 06/25/14 planned quit date documented as of this encounter Results * (ABNORMAL) Comprehensive metabolic panel (10/22/2021 7:53 AM CDT) [facility] Sodium 142 133 - 144 mmol/L 10/22/2021 8:23 AM CDT [facility] Potassium (POCT) 3.6 3.4 - 5.3 mmol/L 10/22/2021 8:23 AM CDT [facility] Chloride (POCT) 109 94 - 109 mmol/L 10/22/2021 8:23 AM CDT [facility] Carbon Dioxide (CO2) (POCT) 26 20 - 32 mmol/L 10/22/2021 8:23 AM CDT [facility] Anion Gap (POCT) 7 3 - 14 mmol/L 10/22/2021 8:23 AM CDT [facility] Urea Nitrogen (POCT) 12 7 - 30 mg/dL 10/22/2021 8:23 AM CDT [facility] Creatinine 1.04 0.52 - 1.04 mg/dL 10/22/2021 8:23 AM CDT [facility] Calcium 10.0 8.5 - 10.1 mg/dL 10/22/2021 8:23 AM CDT [facility] Glucose (POCT) 96 70 - 99 mg/dL 10/22/2021 8:23 AM CDT [facility] Alkaline Phosphatase 94 40 - 150 U/L 10/22/2021 8:23 AM CDT [facility] AST 72(H) 0 - 45 U/L 10/22/2021 8:23 AM CDT [facility] ALT 41 0 - 50 U/L 10/22/2021 8:23 AM CDT [facility] Protein Total 7.5 6.8 - 8.8 g/dL 10/22/2021 8:23 AM CDT [facility] Albumin (POCT) 4.2 3.4 - 5.0 g/dL 10/22/2021 8:23 AM T [facility] Bilirubin Total 4.1(H) 0.2 - 1.3 mg/dL 10/22/2021 8:23 AM CDT [facility] GFR Estimate 64 >60 mL/min/1.7 3m2 10/22/2021 8:23 AM CDT [facility] Comment:Effective July 102020 eGFRcr in adults is calculated using the 2020 CKD-EPI creatinine equation which includes age and gender (Liyah et al., NEJM, DOI: 10.1056/BMFDqc2057156) Blood STRUCTURE OF LEFT UPPER LIMB / Unknown Venipuncture / Unknown 10/22/2021 7:53 AM CDT 10/22/2021 7:53 AM CDT us Rio Jaquez MD LAB - BLOOD ORDERABLES Fin al Result [facility] [address] 1st [place] [address] * (ABNORMAL) Lipid panel reflex to direct LDL Fasting (10/15/2021 7:32 AM LAPEL PADDER) Cholesterol 408(H) <200 mg/dL 10/15/2021 2:09 PM LAPEL PADDER [facility] Triglycerides 159(H) <150 mg/dL 10/15/2021 2:09 PM LAPEL PADDER [facility] Direct Measure HDL 81 >=50 mg/dL 10/15/2021 2:09 PM LAPEL PADDER [facility] LDL Cholesterol Calculated 295(H) <=100 mg/dL 10/15/2021 2:09 PM LAPEL PADDER [facility] Non HDL Cholesterol 327(H) <130 mg/dL 10/15/2021 2:09 PM LAPEL PADDER [facility] Blood STRUCTURE OF LEFT UPPER LIMB / Unknown Venipuncture / Unknown 10/15/2021 7:32 AM LAPEL PADDER 10/15/2021 7:32 AM LAPEL PADDER Narrative [facility] - 10/15/2021 2:09 PM LAPEL PADDER Cholesterol Desirable: <200 mg/dL Triglycerides Normal: Less [...] ORDERABLES Fin al Result Performing Organization Address [facility] Co de Phone Number [facility] [address] 1st [place] [address] * (ABNORMAL) TSH with free T4 reflex (10/15/2021 7:32 AM LAPEL PADDER) TSH 0.19(L) 0.40 - 4.00 mU/L 10/15/2021 2:16 PM LAPEL PADDER [facility] Blood STRUCTURE OF LEFT UPPER LIMB / Unknown Venipuncture / Unknown 10/15/2021 7:32 AM LAPEL PADDER 10/15/2021 7:32 AM LAPEL PADDER Rio Jaquez MD LAB - BLOOD ORDERABLES Fin galileo Result Performing Organization Address [facility] de Phone Number [facility] [address] [place] [address] documented in this encounter Visit Diagnoses Diagnosis [...] Total Score: 5 08/27/19 22 9:25 AM LAPEL PADDER documented as of this encounter Care Teams Desktop Publishing Associate Relationship Specialty Start Date End Date Rio Jaquez MD [address] [place] [address] PCP - General Family Practice 12/02/10 07/13/24 Omar Carmona MD [address] [place] [address] [phone] PCP - General Family Medicine 07/14/24 Barry Kilpatrick MD [address] [place] [address] [id number] [place], [place] [phone] Neurology 07/19/14 Michelle Henderson I, RN Nurse Coordinator Neurology 07/19/14 Rio Jaquez MD [address] [place] [address] 4 [place], [place] 528225 Family Practice 10/15/14 Jemima Jaramillo MD advisory services associate 11/20/14 Kelley Chin, TANIA [address] 898305 Nurse Coordinator Cardiology 11/04/15 Sydnee Saleem MD [address] [place] [address] 508 [place], [place] 900535 Cardiology 11/04/15 Karlene Moya MD [address] [place] [address] Ophthalmology 06/24/17 Wilbert Quintero, OD [address] [place] [address] Optometry 06/24/17 Rod Gauthier DPM [address] [place] [address] Selling Manager Primary Podiatric Medicine 06/21/18 Nallely Hogue, RN Registered Nurse 02/20/19 11/23/22 Larisa Vargas, TANIA Specialty Machine Joint Cutter Cardiology 04/18/19 03/06/22 Francisco Lott MD [address] [facility] 88 [place] [address] Assigned Rheumatology Provider 05/31/20 12/13/21 Greg Ortega MD [address] [place], [place] 285715 Assigned Surgical Provider 06/23/20 12/06/21 Jan Mahmood MD 516 [facility] 2A [place] [address] Gastroenterology 11/05/20 Brandt Quintana MD [facility]4 [place] [address] Resident 11/05/20 Jan Mahmood MD 516 [facility] 2[address] [place] [address] Assigned Gastroenterology Provider 12/01/20 Rio Jaquez MD 909 [facility] 4 [place] [address] Assigned PCP 11/17/20 09/30/24 Dom Eason MD 717 [facility] 353 [place] [address] Internal Medicine 12/02/20 Jayla Plaza, RN Specialty Machine Joint Cutter Hepatology 01/09/21 02/13/24 Sydnee Saleem MD [address] [address] Assigned Heart and Vascular Provider 02/02/21 07/24/22 Phan Coello MD Assigned Neuroscience Provider 02/21/21 11/22/21 Cristian Barragan MD [address]45 [place], [place] [phone] Assigned Infectious Disease Provider 02/21/21 03/06/22 Dom Eason MD [address] [place] [address] 353 [place], [place] 756754 Assigned Nephrology Provider 04/20/21 01/02/22 Jaimie Vernon, ATNIA Specialty Machine Joint Cutter Cardiology 10/28/21 Ruth Riddle, DPM, Podiatry/Foot and Ankle Surgery [address] [facility] [address] [place], [place] 253547 Assigned Musculoskeletal Provider 11/30/21 09/30/23 Luis Arrington MD [address] [place] [address] 196515 Assigned Neuroscience Provider 11/23/21 01/02/22 Jason Alvares MD [address] [place] [address] 295 [place], [place] 300715 Assigned Neuroscience Provider 01/03/22 05/15/22 Marquise Hanley MD [address] [place] [address] Endocrinology, Diabetes, and Metabolism 03/05/22 Vlad Ramey MD [address] [place] [address] Cardiovascular Disease 05/07/22 Joesph Crowe MD [address] [place] [address] 71327 Surgery 05/07/22 Luis Arrington MD [address] [place] [address] 28[address] Assigned Neuroscience Provider 05/16/22 05/14/23 Michelle Padilla RN Specialty Machine Joint Cutter Cardiology 07/03/22 Vlad Ramey MD [address] [place] [address] 10537 Assigned Heart and Vascular Provider 07/25/22 05/28/23 Marquise Hanley MD [address] [place] [address] 305[address] Assigned Endocrinology Provider 08/15/22 Dom Eason MD [address] [place] [address] Assigned Nephrology Provider 11/28/22 02/19/23 Wagner Oliver MD [address] [place] [address] Critical Care 12/15/22 Laura Epperson, BACK WINDER 717 [facility] [address] [place] [address] Assigned Nephrology Provider 02/20/23 08/30/24 Thom Taveras MD [address] [place] [address] Assigned Cancer Care Provider 02/06/23 08/20/23 Joesph Crowe MD 909 [place] [address] MD Surgery 03/17/23 Joesph Crowe MD [address]09 [place], [place] 486275 Assigned Surgical Provider 04/03/23 09/30/24 Adonay Haq MD [address] [place], [place] 550895 Internal Medicine 06/14/23OctoberDenilson MD [address] [facility] [address] [place], [place] 989565 Assigned Heart and Vascular Provider 05/29/23 11/28/24 Jason Alvares MD 420 [facility] 295 [place] [address] Assigned Neuroscience Provider 05/15/23 11/28/24 Ruth Riddle DPM, Podiatry/Foot and Ankle Surgery [address] [place], [place] 650457 Assigned Musculoskeletal Provider 10/22/23 Jignesh Mathias MD [address] [place] [address] [phone] Gastroenterology 09/25/24 Adonay Haq MD [address] [place] [address] [phone] Assigned PCP 10/01/24 12/28/24 Omar Carmona MD [address] [place] [address] [phone] Assigned PCP 12/29/24 Jason Alvares MD [address] [place] [address] [phone] Assigned Neuroscience Provider 12/29/24 Jignesh Mathias MD [address] [place] [address] 095855 Assigned Surgical Provider 12/29/24 Ayad Lopez, PhD LP [address] [place] [address] [phone] Assigned Behavioral Health Provider 02/28/25 Gavi Nieto PA-C [address] [place] [address] 520695 Physician [employer] Starter Dermatology 03/19/25 documented as of this encounter
--- OUTSIDE RECORDS SUMMARY | 2025-06-10 11:38 | XMS_ITS | Encounter Summary ---
Author Organization [facility] Address [address] [place] [address] Care Team Providers Care Cafe Cook Name Role Phone Rio Jaquez MD Primary Care Provider Barry Kilpatrick MD Unavailable Michelle Henderson RN Unavailable [phone] Rio Jaquez MD Unavailable [phone] Jemima Jaramillo MD Unavailable Unavai Kelley Bautista RN Unavailable [phone] Sydnee Saleem MD Unavailable [phone] Karlene Moya MD Unavailable [phone] Wilbert Quintero OD Unavailable [phone] Rod Gauthier DPM Unavailable [phone] Nallely Hogue RN Unavailable Unavailable Larisa Vargas RN Unavailable Unavailable Francisco Lott MD Unavailable [phone] Greg Ortega MD Unavailable [phone] Jan Mahmood MD Unavailable [phone] Brandt Quintana MD Unavailable [phone] Jan Mahmood MD Unavailable Rio Jaquez MD Unavailable Dom Eason MD Unavailable [phone] Jayla Plaza RN Unavailable Jayla Plaza RN Unavailable Sydnee Saleem MD Unavailable Phan Coello MD Unavailable Unavailable Cristian Barragan MD Unavailable Dom Eason MD Unavailable [phone] Jaimie Vernon RN Unavailable Unavailable Ruth Riddle DPM, Podiatry /Foot and Ankle Surgery Unavailable Luis Arrington MD Unavailable Jason Alvares MD Unavailable Marquise Hanley MD Unavailable Vlad Ramey MD Unavailable Joesph Crowe MD Unavailable Luis Arrington MD Unavailable Michelle Padilla RN Unavailable Unavaila ble Vlad Ramey MD Unavailable Marquise Hanley MD Unavailable Dom Eason MD Unavailable Wagner Oliver MD Unavailable [phone] Laura Epperson NP Unavailable [phone] Thom Taveras MD Unavailable Joesph Crowe MD Unavailable Joesph Crowe MD Unavailable Adonay Haq MD Unavailable OctoberDenilson MD Unavailable Jason Alvares MD Unavailable Ruth Riddle DPM, Podiatry /Foot and Ankle Surgery Unavailable Omar Carmona MD Primary Care Provider Jignesh Mathias MD Unavailable Adonay Haq MD Unavailable [phone] Omar Carmona MD Unavailable Jason Alvares MD Unavailable Jignesh Mathias MD Unavailable Ayad Lopez PhD LP Unavailable [phone] Gavi Nieto PA-C Unavailable [phone] Encounter Details Date Type Department Care Team (Late st Contact Info) Description 12/04/2020 [facility] [facility] Interventional Radiology [address] [place] [phone] Laura Lea, RN Social History Tobacco Use [...] Sex Assigned at Female 09/12/2020 12:05 PM CASING MIXER Legal Sex Female 3:26 AM CASING MIXER Gender Identity Female 09/12/2020 12:05 PM CASING MIXER Sexual Orientation Straight 12/19/2021 10 :44 AM [...] st Contact Info) Description 06/13/2025 6:00 PM CASING MIXER Ancillary Procedure [facility] [address] [phone] Omar Carmona MD [address] [place] [address] 643425 06/14/2025 4:00 PM CASING MIXER Office Visit [facility] [address] [phone] Omar Carmona MD [address] [place] [address] 150065 06/15/2025 12:45 PM CASING MIXER Therapy Visit [facility] [address] [place] [address] Jason Alvares MD [address] 125125 Chaya Castillo, OTR [facility] 150 [place], [place] 699887 06/19/2025 10:30 AM CASING MIXER Virtual Visit [facility] [address] [address] Omar Carmona MD [address] [place] [address] [id number] Gerson Santos RPH 06/26/2025 11:00 AM CASING MIXER Therapy Visit [facility] [address] [place] [address] Jason Alvares MD [address] [place] [address] Chaya Castillo, OTR [address] [address] 07/09/2025 12:45 PM CASING MIXER Therapy Visit [facility] [address] [phone] Jason Alvares MD [address] [place] [address] Chaya Castillo, OTR [address] [address] 07/18/2025 3:00 PM CASING MIXER Office Visit [facility] [address] [phone] Adonay Chapman APRN [facility] 500 [place] [address] 11/05/2025 12:30 PM CDT Lab [facility] [address] [place] [phone] 11/05/2025 1:45 PM CDT Office Visit [facility] [address] [place] [phone] Gavi Nieto PA-C Dermatology [address] [place] [address] 11/20/2025 10:30 AM CDT Virtual Visit [address] [phone] Marquise Hanley MD [address] [place] [address] documented as of this encounter Goals Goal [...] Depression Total Score: 12 021 9:43 AM CASING MIXER documented as of this encounter Care Teams Cafe Cook Relationship Specialty Start Date End Date Rio Jaquez MD [address] [place] [address]61 PCP - General Family Practice 12/02/10 07/13/24 Omar Carmona MD [address] [place] [address] PCP - General Family Medicine 07/14/24 Barry Kilpatrick MD [address] [place] [address] [id number] [place] [address] Neurology 07/19/14 Michelle Henderson I, RN Nurse Coordinator Neurology 07/19/14 Rio Jaquez MD [address] [place] [address] Family Practice 10/15/14 Jemima Jaramillo MD material planner 11/20/14 Kelley Chin, TANIA [address] 344435 Nurse Coordinator Cardiology 11/04/15 Sydnee Saleem MD [address] [place] [address] 508 [place] [address] Cardiology 11/04/15 Karlene Moya MD [address] [place] [address] [phone] Ophthalmology 06/24/17 Wilbert Quintero OD [address] [place] [address] 654195 Optometry 06/24/17 Rod Gauthier DPM [address] [place] [address] 916635 Legislative Correspondent Primary Podiatric Medicine 06/21/18 Nallely Hogue, RN Registered Nurse 02/20/19 11/23/22 Larisa Vargas, TANIA Specialty Enroute Controller Cardiology 04/18/19 03/06/22 Francisco Lott MD [address] [place] [address] 88 [place], [place] [phone] Assigned Rheumatology Provider 05/31/20 12/13/21 Greg Ortega MD [address] [place] [address] 155265 Assigned Surgical Provider 06/23/20 12/06/21 Jan Mahmood MD [address] [place] [address] Gastroenterology 11/05/20 Brandt Quintana MD 1414 [place] [address] Resident 11/05/20 Jan Mahmood MD 516 [facility] 2A [place] [address] Assigned Gastroenterology Provider 12/01/20 Rio Jaquez MD 909 [facility] 4 [place], [place] 620615 Assigned PCP 11/17/20 09/30/24 Dom Eason MD 717 [facility] 353 [place], [place] 811554 Internal Medicine 12/02/20 Jayla Plaza, RN Specialty Enroute Controller Hepatology 01/09/21 02/13/24 Jayla Plaza, RN Specialty Enroute Controller Hepatology 01/10/21 01/10/21 Sydnee Saleem MD [address] [place] [address] [phone] Assigned Heart and Vascular Provider 02/02/21 07/24/22 Phan Coello MD Assigned Neuroscience Provider 02/21/21 11/22/21 Cristian Barragan MD 2945 [place] [address] Assigned Infectious Disease Provider 02/21/21 03/06/22 Dom Eason MD 717 [facility] 353 [place] [address] Assigned Nephrology Provider 04/20/21 01/02/22 Jaimie Vernon, RN Specialty Enroute Controller Cardiology 10/28/21 Ruth Riddle, DPM, Podiatry/Foot and Ankle Surgery [address] [facility] 300 [place] [address] Assigned Musculoskeletal Provider 11/30/21 09/30/23 Luis Arrington MD [address] [place] [address] Assigned Neuroscience Provider 11/23/21 01/02/22 Jason Alvares MD [address] [place] [address] 295 [place] [address] Assigned Neuroscience Provider 01/03/22 05/15/22 Marquise Hanley MD [address] [place] [address] Endocrinology, Diabetes, and Metabolism 03/05/22 Vlad Ramey MD [address] [place] [address] Cardiovascular Disease 05/07/22 Joesph Crowe MD [address] [place] [address] 68690 Surgery 05/07/22 Luis Arrington MD [address] [place] [address] 80[address] Assigned Neuroscience Provider 05/16/22 05/14/23 Michelle Padilla, RN Specialty Enroute Controller Cardiology 07/03/22 Vlad Ramey MD 9 [place] [address] Assigned Heart and Vascular Provider 07/25/22 05/28/23 Marquise Hanley MD [address] [place] [address] Assigned Endocrinology Provider 08/15/22 Dom Eason MD 717 [facility] 353 [place] [address] Assigned Nephrology Provider 11/28/22 02/19/23 Wagner Oliver MD [address] [place] [address] Critical Care 12/15/22 Laura Epperson, BINDING MACHINE OPERATOR 717 [facility] 1932 [place] [address] Assigned Nephrology Provider 02/20/23 08/30/24 Thom Taveras MD [address] [place] [address] Assigned Cancer Care Provider 02/06/23 08/20/23 Joesph Crowe MD [address] [place] [address] 8[address] Surgery 03/17/23 Joesph Crowe MD 9 [place] [address] Assigned Surgical Provider 04/03/23 09/30/24 Adonay Haq MD [address] [place] [address]75 Internal Medicine 06/14/23October, Denilson Jackson MD [address] [facility] [address] [place] [address] Assigned Heart and Vascular Provider 05/29/23 11/28/24 Jason Alvares MD [address] [place] [address] 295 [place], [place] 463965 Assigned Neuroscience Provider 05/15/23 11/28/24 Ruth Riddle DPM, Podiatry/Foot and Ankle Surgery [address] [facility] 300 [place], [place] 334697 Assigned Musculoskeletal Provider 10/22/23 Jignesh Mathias MD [address] [place] [address] 80711 Gastroenterology 09/25/24 Adonay Haq MD [address] [place] [address] 5[address] Assigned PCP 10/01/24 12/28/24 Omar Carmona MD [address] [place] [address]85 Assigned PCP 12/29/24 Jason Alvares MD 420 [facility] 295 [place], [place] 771695 Assigned Neuroscience Provider 12/29/24 Jignesh Mathias MD [address] [place] [address] 326545 Assigned Surgical Provider 12/29/24 Ayad Lopez, PhD LP [address] [place] [address] [phone] Assigned Behavioral Health Provider 02/28/25 Gavi Nieto PANavinC [address] [place] [address] 886765 Physician Clinical Laboratory Director Dermatology 03/19/25 documented as of this encounter
--- OUTSIDE RECORDS SUMMARY | 2025-06-10 11:39 | XMS_ITS | Encounter Summary ---
Author Organization [facility] Address [address] [place] [address] Care Team Providers Care Student Development Dean Name Role Phone Rio Jaquez MD Primary Care Provider Barry Kilpatrick MD Unavailable Michelle Henderson I RN Unavailable [phone] Rio Jaquez MD Unavailable [phone] Jemima Jaramillo MD Unavailable Unavai Kelley Bautista RN Unavailable [phone] Sydnee Saleem MD Unavailable [phone] Karlene Moya MD Unavailable Wilbert Quintero OD Unavailable [phone] Rod Gauthier DPM Unavailable Jan Mahmood MD Unavailable [phone] Brandt Quintana MD Unavailable Jan Mahmood MD Unavailable [phone] Rio Jaquez MD Unavailable [phone] Dom Eason MD Unavailable Jayla Plaza RN Unavailable [phone] Jaimie Vernon RN Unavailable Unavailable Ruth RiddleM, Podiatry /Foot and Ankle Surgery Unavailable Marquise Hanley MD Unavailable [phone] Vlad Ramey MD Unavailable +[phone] Joesph Crowe MD Unavailable [phone] Michelle Padilla RN Unavailable Unavaila ble Marquise Hanley MD Unavailable [phone] Wagner Oliver MD Unavailable [phone] Laura Epperson NP Unavailable [phone] Thom Taveras MD Unavailable [phone] Joesph Crowe MD Unavailable + [phone] Joesph Crowe MD Unavailable + [phone] Adonay Haq MD Unavailable [phone] Denilson Srinivasan MD Unavailable + [phone] Jason Alvares MD Unavailable Ruth Riddle DPM, Podiatry /Foot and Ankle Surgery Unavailable Omar Carmona MD Primary Care Provider [phone] Jignesh Mathias MD Unavailable Adonay Haq MD Unavailable [phone] Omar Carmona MD Unavailable [phone] Jason Alvares MD Unavailable Jignesh Mathias MD Unavailable Ayad Lopez PhD LP Unavailable [phone] Gavi Nieto PA-C Unavailable [phone] Encounter Details Date Type Department Care Team (Late st Contact Info) Description 07/27/2023 MyC Medical Advice [facility] [address] 4th [place] [address] Rio Jaquez MD 909 [facility] 4 [place] [address] Social History Tobacco Use Types Packs/Day Years [...] Answer Date Recorded PHQ-2 Score 2 06/14/2023 [facility] of Occupat ional Health - Occupational Stress [...] Sex Assigned at Female 09/12/2020 12:05 PM TRAILER ASSEMBLER Legal Sex Female 3:26 AM TRAILER ASSEMBLER Gender Identity Female 09/12/2020 12:05 PM TRAILER ASSEMBLER Sexual Orientation Straight 12/19/2021 10 :44 AM CDT Occupation Industry Job Start Date Job End Date on disability for FMS Not on file Not on file Not on file disabled Not on file Not on file Not on file documented as of this encounter Miscellaneous Notes * Telephone Encounter - Rio Jaquez MD - 07/29/2023 2:17 PM TRAILER ASSEMBLER July 29, 2023 Could consider second opinion through [facility]. Ask for cardiac congenital heart clinic. [phone] [email or web address] Rio Jaquez MD LER ASSEMBLER documented in this encounter Plan of Treatment Upcoming Encounters Date Type Department Care Team (Late st Contact Info) Description 06/13/2025 6:00 PM TRAILER ASSEMBLER Ancillary Procedure [facility] CT Clinic [address] [phone] Omar Carmona MD [address] [place] [address] 235185 06/14/2025 4:00 PM TRAILER ASSEMBLER Office Visit [facility] Primary Care [address] [phone] Omar Carmona MD [address] [place] [address] [phone] 06/15/2025 12:45 PM TRAILER ASSEMBLER Therapy Visit [facility] Rehabilitation Services [address] [phone] Jason Alvares MD [address] [place] [address] 620605 Chaya Castillo, OTR [facility] 150 [place] [address] 06/19/2025 10:30 AM TRAILER ASSEMBLER Virtual Visit [facility] Care [address] [phone] Omar Carmona MD [address] [place] [address] [phone] Gerson Santos, MORENO 06/26/2025 11:00 AM TRAILER ASSEMBLER [facility] 150 [place] [phone] Jason Alvares MD [address] [place] [address] 496115 Chaya Castillo, OTR [facility] [address] [address] 07/09/2025 12:45 PM TRAILER ASSEMBLER Therapy Visit [address] [phone] Jason Alvares MD [address] [place] [address] Chaya Castillo, OTR [facility] [address] [address] 07/18/2025 3:00 PM TRAILER ASSEMBLER Office Visit [facility] Heart Clinic [address] [phone] Adonay Chapman APRN [facility] 500 [place], [place] 042785 11/05/2025 12:30 PM CDT Lab [facility] Lab [address]st [place] [phone] 11/05/2025 1:45 PM CDT Office Visit [facility] Dermatology Clinic [address] 3rd [place] [phone] Gavi Nieto PA-C Dermatology [address] [place] [address] [phone] 11/20/2025 10:30 AM CDT Virtual Visit [address] [address] Marquise Hanley MD 9 [place] [address] documented as of this encounter Goals Goal [...] Total Score: 9 06/14/20 23 7:18 AM TRAILER ASSEMBLER documented as of this encounter Care Teams Student Development Dean Relationship Specialty Start Date End Date Rio Jaquez MD [address] [place] [address] PCP - General Family Practice 12/02/10 07/13/24 Omar Carmona MD [address] [place] [address] PCP - General Family Medicine 07/14/24 Barry Kilpatrick MD [address] [place] [address] [id number] [place] [address] Neurology 07/19/14 Michelle Henderson I, RN Nurse Coordinator Neurology 07/19/14 Rio Jaquez MD 909 [facility] 4 [place] [address] Family Practice 10/15/14 Jemima Jaramillo MD scutcher tender 11/20/14 Kelley Chin RN [facility] [address] [place] [address] 939865 Nurse Coordinator Cardiology 11/04/15 Sydnee Saleem MD 420 [facility] 508 [place], [place] 429185 Cardiology 11/04/15 Karlene Moya MD [address] [place] [address] 117345 Ophthalmology 06/24/17 Wilbert Quintero OD [address] [place] [address] 368405 Optometry 06/24/17 Rod Gauthier DPM [address] [place] [address] Lace Mender Primary Podiatric Medicine 06/21/18 Jan Mahmood MD [address] [place] [address] 2[address] [place] [address] Gastroenterology 11/05/20 Brandt Quintana MD [address] [place] [address] Resident 11/05/20 Jan Mahmood MD [address] [place] [address] Assigned Gastroenterology Provider 12/01/20 Rio Jaquez MD [address] [place] [address] 4 [place] [address] Assigned PCP 11/17/20 09/30/24 Dom Eason MD [address] [place] [address] 353 [place] [address] Internal Medicine 12/02/20 Jayla Plaza, RN Specialty Spinner Open End Hepatology 01/09/21 02/13/24 Jaimie Vernon, TANIA Specialty Spinner Open End Cardiology 10/28/21 Ruth Riddle DPM, Podiatry/Foot and Ankle Surgery 03873 [facility] 300 [place] [address] Assigned Musculoskeletal Provider 11/30/21 09/30/23 Marquise Hanley MD [address] [place] [address] Endocrinology, Diabetes, and Metabolism 03/05/22 Vlad Ramey MD [address] [place] [address]87 Cardiovascular Disease 05/07/22 Joesph Crowe MD [address] [place] [address] 8[address]67 Surgery 05/07/22 Michelle Padilla, RN Specialty Spinner Open End Cardiology 07/03/22 Marquise Hanley MD 9 [place] [address] Assigned Endocrinology Provider 08/15/22 Wagner Oliver MD [address] [place] [address] Critical Care 12/15/22 Laura Epperson, LULU 717 [facility] 1932 [place] [address] Assigned Nephrology Provider 02/20/23 08/30/24 Thom Taveras MD [address] [place] [address] Assigned Cancer Care Provider 02/06/23 08/20/23 Joesph Crowe MD [address] [place] [address] Surgery 03/17/23 Joesph Crowe MD [address] [place] [address] 70[address] Assigned Surgical Provider 04/03/23 09/30/24 Adonay Haq MD [address] [place] [address] Internal Medicine 06/14/23OctoberDenilson MD [address] [facility] [address] [place] [address] Assigned Heart and Vascular Provider 05/29/23 11/28/24 Jason Alvares MD 420 [facility] 295 [place], [place] 185615 Assigned Neuroscience Provider 05/15/23 11/28/24 Ruth Riddle DPM, Podiatry/Foot and Ankle Surgery [address] [place] [address] Assigned Musculoskeletal Provider 10/22/23 Jignesh Mathias MD [address] [place] [address] 623975 Gastroenterology 09/25/24 Adonay Haq MD [address] [place] [address] 466635 Assigned PCP 10/01/24 12/28/24 Omar Carmona MD [address] [place] [address] 126945 Assigned PCP 12/29/24 Jason Alvares MD [address] [place] [address] 295 [place], [place] 665955 Assigned Neuroscience Provider 12/29/24 Jignesh Mathias MD [address] [place] [address] 80344 Assigned Surgical Provider 12/29/24 Ayad Lopez, PhD LP [address] [place] [address] 017375 Assigned Behavioral Health Provider 02/28/25 Gavi Nieto PA-C [address] [place] [address] Physician Maintenance Equipment Operator Dermatology 03/19/25 documented as of this encounter
--- OUTSIDE RECORDS SUMMARY | 2025-06-10 11:39 | XMS_ITS | Encounter Summary ---
Author Organization [place] Address [address] [place] [address] 20113 Care Team Providers Care Puller Out Name Role Phone Rio Jaquez MD Primary Care Provider Barry Kilpatrick MD Unavailable Michelle Henderson I RN Unavailable [phone] Rio Jaquez MD Unavailable +[phone] Jemima Jaramillo MD Unavailable Unavai Kelley Bautista RN Unavailable +[phone] Sydnee Saleem MD Unavailable +[phone] Karlene Moya MD Unavailable +[phone] Wilbert Quintero OD Unavailable +[phone] Rod Gauthier DPM Unavailable +[phone] Jan Mahmood MD Unavailable +[phone] Brandt Quintana MD Unavailable [phone] Jan Mahmood MD Unavailable +[phone] Rio Jaquez MD Unavailable +[phone] Dom Eason MD Unavailable Jayla Plaza RN Unavailable +[phone] Jaimie Vernon RN Unavailable Unavailable Marquise Hanley MD Unavailable +[phone] Vlad Ramey MD Unavailable +[phone] Joesph Crowe MD Unavailable + [phone] Michelle Padilla RN Unavailable Unavaila ble Marquise Hanley MD Unavailable +-[phone] Wagner Oliver MD Unavailable +[phone] Laura Epperson NP Unavailable + [phone] Joesph Crowe MD Unavailable +[phone] Joesph Crowe MD Unavailable + [phone] Adonay Haq MD Unavailable +[phone] Denilson Srinivasan MD Unavailable + [phone] Jason Alvares MD Unavailable Ruth Riddle DPM, Podiatry /Foot and Ankle Surgery Unavailable Omar Carmona MD Primary Care Provider [phone] Jignesh Mathias MD Unavailable Adonay Haq MD Unavailable [phone] Omar Carmona MD Unavailable +[phone] Jason Alvares MD Unavailable Jignesh Mathias MD Unavailable Ayad Lopez PhD LP Unavailable +[phone] Gavi Nieto PA-C Unavailable [phone] Encounter Details Date Type Department Care Team (Late st Contact Info) Description 10/14/2023 [facility] Hepatology [address] [address] Jan Mahmood MD 6 [facility] 2A [place] [address] Social History Tobacco Use Types Packs/Day Years [...] PHQ-2 Score 2 08/26/2023 [facility] Occupational Stress [...] Assigned at Female 09/12/2020 12:05 PM TOP FLAVOR ATTENDANT Legal Sex Female 3:26 AM TOP FLAVOR ATTENDANT Gender Identity Female 09/12/2020 12:05 PM TOP FLAVOR ATTENDANT Sexual Orientation Straight 12/19/2021 10 :44 [...] Contact Info) Description 06/13/2025 6:00 PM TOP FLAVOR ATTENDANT Ancillary Procedure [address] [address] Omar Carmona MD [address] [place] [address] 104075 06/14/2025 4:00 PM TOP FLAVOR ATTENDANT Office Visit [facility] Primary Care [address] [phone] Omar Carmona MD [address] [place] [address] 401495 06/15/2025 12:45 PM TOP FLAVOR ATTENDANT Therapy Visit [facility] [address] [place] [phone] Jason Alvares MD [address] [place] [address] 958895 Chaya Castillo, OTR [facility] [address] [place], [place] 132957 06/19/2025 10:30 AM TOP FLAVOR ATTENDANT Virtual Visit [facility] Care [address] [phone] Omar Carmona MD [address] [place] [address] 390865 Gerson Santos [facility] 06/26/2025 11:00 AM TOP FLAVOR ATTENDANT Therapy Visit [facility] [address] [place] [phone] Jason Alvares MD [address] [place] [address] 152995 Chaya Castillo, OTR [facility] [address] [place] [address] 07/09/2025 12:45 PM TOP FLAVOR ATTENDANT Therapy Visit [facility] [address] [place] [phone] Jason Alvares MD 420 [facility] 295 [place] [address] Chaya Castillo, OTR [facility] 150 [place] [address] 07/18/2025 3:00 PM TOP FLAVOR ATTENDANT Office Visit [facility] Heart [address] [phone] Adonay Chapman APRN [facility] 500 [place] [address] 11/05/2025 12:30 PM CDT Lab [facility] Lab [address] 1st [place] [phone] 11/05/2025 1:45 PM CDT Office Visit [facility] Dermatology [address] 3rd [place] [phone] Gavi Nieto PANavinC Dermatology [address] [place] [address] 11/20/2025 10:30 AM CDT Virtual Visit [address] [address] Marquise Hanley MD [address] [place] [address] 362025 documented as of this encounter Goals Goal [...] Total Score: 9 06/14/20 23 7:18 AM TOP FLAVOR ATTENDANT documented as of this encounter Care Teams Puller Out Relationship Specialty Start Date End Date Rio Jaquez MD [address] [place] [address] PCP - General Family Practice 12/02/10 07/13/24 Omar Carmona MD [address] [place] [address]778 PCP - General Family Medicine 07/14/24 Barry Kilpatrick MD [address] [place] [address] [id number] [place], [place] 873475 Neurology 07/19/14 Michelle Henderson I, TANIA Nurse Coordinator Neurology 07/19/14 Rio Jaquez MD [address] [place] [address] 284755 Family Practice 10/15/14 Jemima Jaramillo MD manager of sustainability 11/20/14 Kelley Chin, TANIA [address] [phone] Nurse Coordinator Cardiology 11/04/15 Sdynee Saleem MD 420 [facility] 508 [place], [place] 230225 Cardiology 11/04/15 Karlene Moya MD 516 [place], [place] 670185 MD Ophthalmology 06/24/17 Wilbert Quintero, OD 909 [place], [place] 632485 Optometry 06/24/17 Rod Gauthier DPM 909 [place], [place] 903685 Outside Solar Sales Consultant Primary Podiatric Medicine 06/21/18 Jan Mahmood MD 6 [facility] 2A [place], [place] 191465 MD Gastroenterology 11/05/20 Brandt Quintana MD [facility]4 [place] [address] Resident 11/05/20 Jan Mahmood MD 6 [facility] 2A [place], [place] 868425 Assigned Gastroenterology Provider 12/01/20 Rio Jaquez MD 909 [facility] [place] 4 [place], [place] 826345 Assigned PCP 11/17/20 09/30/24 Dom Eason MD 717 [facility] 353 [place], [place] 872034 Internal Medicine 12/02/20 Jayla Plaza, RN Specialty Manager File Hepatology 01/09/21 02/13/24 Jaimie Vernon, TANIA Specialty Manager File Cardiology 10/28/21 Marquise Hanley MD [address] [place] [address] Endocrinology, Diabetes, and Metabolism 03/05/22 Vlad Ramey MD [address] [place] [address] 43[address] Cardiovascular Disease 05/07/22 Joesph Crowe MD [address] [place] [address] Surgery 05/07/22 Michelle Padilla RN Specialty Manager File Cardiology 07/03/22 Marquise Hanley MD [address] [place] [address] 466[address] Assigned Endocrinology Provider 08/15/22 Wagner Oliver MD [address] [place] [address] Critical Care 12/15/22 Laura Epperson NP [address] [place] [address] 1932 [place] [address] Assigned Nephrology Provider 02/20/23 08/30/24 Joesph Crowe MD [address] [place] [address] 70[address] Surgery 03/17/23 Joesph Crowe MD [address] [place] [address]17 Assigned Surgical Provider 04/03/23 09/30/24 Adonay Haq MD [address] [place] [address] Internal Medicine 06/14/23October, Denilson Jackson MD 6405 [facility] [address] [place], [place] 587265 Assigned Heart and Vascular Provider 05/29/23 11/28/24 Jason Alvares MD [address] [place] [address] 032375 Assigned Neuroscience Provider 05/15/23 11/28/24 Ruth Riddle DPM, Podiatry/Foot and Ankle Surgery [address] R[place]IG[place]Z [address] [place] [address] 270027 Assigned Musculoskeletal Provider 10/22/23 Jignesh Mathias MD [address] [place] [address]67 Gastroenterology 09/25/24 Adonay Haq MD [address] [place] [address] 219245 Assigned PCP 10/01/24 12/28/24 Omar Carmona MD [address] [place] [address] 87[address] Assigned PCP 12/29/24 Jason Alvares MD 420 [facility] 295 [place] [address] Assigned Neuroscience Provider 12/29/24 Jignesh Mathias MD [address] [place] [address] 719615 Assigned Surgical Provider 12/29/24 Ayad Lopez, PhD LP 516 [place], [place] 351755 Assigned Behavioral Health Provider 02/28/25 Gavi Nieto, PANavinC [address] [place] [address] 508985 Physician Licensed Electrician Dermatology 03/19/25 documented as of this encounter
--- OUTSIDE RECORDS SUMMARY | 2025-06-10 11:39 | XMS_ITS | Encounter Summary ---
Author Organization [place] Address [address] [place] [address] Care Team Providers Care Private Household Worker Name Role Phone Rio Jaquez MD Primary Care Provider Barry Kilpatrick MD Unavailable Michelle Henderson I RN Unavailable [phone] Rio Jaquez MD Unavailable +[phone] Jemima Jaramillo MD Unavailable Unavai Kelley Bautista RN Unavailable [phone] Sydnee Saleem MD Unavailable [phone] Karlene Moya MD Unavailable Wilbert Quintero OD Unavailable +[phone] Rod Gauthier DPM Unavailable +[phone] Jan Mahmood MD Unavailable +[phone] Brandt Quintana MD Unavailable Jan Mahmood MD Unavailable +[phone] Rio Jaquez MD Unavailable [phone] Dom Eason MD Unavailable Jayla Plaza RN Unavailable +[phone] Jaimie Vernon RN Unavailable Unavailable Ruth Riddle DPM, Podiatry /Foot and Ankle Surgery Unavailable Marquise Hanley MD Unavailable +[phone] Vlad Ramey MD Unavailable +[phone] Joesph Crowe MD Unavailable + [phone] Michelle Padilla RN Unavailable Unavaila ble Marquise Hanley MD Unavailable +[phone] Wagner Oliver MD Unavailable +[phone] Laura Epperson NP Unavailable +[phone] Joesph Crowe MD Unavailable + [phone] Joesph Crowe MD Unavailable + [phone] Adonay Haq MD Unavailable [phone] OctoberDenilson MD Unavailable + [phone] Jason Alvares MD Unavailable Ruth Riddle DPM, Podiatry /Foot and Ankle Surgery Unavailable Omar Carmona MD Primary Care Provider [phone] Jignesh Mathias MD Unavailable Adonay Haq MD Unavailable [phone] Omar Carmona MD Unavailable [phone] Jason Alvares MD Unavailable Jignesh Mathias MD Unavailable Ayad Lopez PhD LP Unavailable +[phone] Gavi Nieto PA-C Unavailable [phone] Encounter Details Date Type Department Care Team (Late st Contact Info) Description 08/27/2023 [facility] [address] 3rd [place] [address] Lizbeth Lopse Social History Tobacco Use Types Packs/Day Years [...] Answer Date Recorded PHQ-2 Score 2 08/26/2023 [facility] of Occupat [...] Sex Assigned at Female 09/12/2020 12:05 PM DYE COLORIST FORMULATOR Legal Sex Female 3:26 AM DYE COLORIST FORMULATOR Gender Identity Female 09/12/2020 12:05 PM DYE COLORIST FORMULATOR Sexual Orientation Straight 12/19/2021 10 :44 AM CDT Occupation Industry Job Start Date Job End Date on disability for FMS Not on file Not on file Not on file disabled Not on file Not on file Not on file documented as of this encounter Plan of Treatment Upcoming Encounters Date Type Department Care Team (Late st Contact Info) Description 06/13/2025 6:00 PM DYE COLORIST FORMULATOR Ancillary Procedure [address] [address] Omar Carmona MD [address] [place] [address] 06/14/2025 4:00 PM DYE COLORIST FORMULATOR Office Visit [facility] Primary Care [address] [phone] Omar Carmona MD [address] [place] [address] 918635 06/15/2025 12:45 PM DYE COLORIST FORMULATOR Therapy Visit [facility] 150 [place] [phone] Jason Alvares MD [address] [place] [address] 485465 Chaya Castillo OTR [facility] 150 [place], [place] 057087 06/19/2025 10:30 AM DYE COLORIST FORMULATOR Virtual Visit [facility] Primary Care [address] [phone] Omar Carmona MD [address] [place] [address] Gerson Santos [facility] 06/26/2025 11:00 AM DYE COLORIST FORMULATOR Therapy Visit [facility] [place] [address] Jason Alvares MD [address] [place] [address] 516285 Chaya Castillo, OTR [facility] 150 [facility] [place], [place] 302717 07/09/2025 12:45 PM DYE COLORIST FORMULATOR Therapy Visit [facility] 150 [place] [address]114 Jason Alvares MD 420 [facility] 295 [place] [address] Chaya Castillo, OTR [facility] 150 [place] [address] 07/18/2025 3:00 PM DYE COLORIST FORMULATOR Office Visit [facility] Heart [address] [phone] Adonay Chapman APRN [facility] 500 [place], [place] 932785 11/05/2025 12:30 PM CDT Lab [facility] Lab [address] 1st [place] [phone] 11/05/2025 1:45 PM CDT Office Visit [facility] Dermatology Clinic [address] 3rd [place] [phone] Gavi Nieto PA-C Dermatology [address] [place] [address] 11/20/2025 10:30 AM CDT Virtual Visit [address] [phone] Marquise Hanley MD [address] [place] [address] 951295 documented as of this encounter Goals Goal [...] Total Score: 9 06/14/20 23 7:18 AM DYE COLORIST FORMULATOR documented as of this encounter Care Teams Private Household Worker Relationship Specialty Start Date End Date Rio Jaquez MD [address] [place] [address] 4 [place] [address] PCP - General Family Practice 12/02/10 07/13/24 Omar Carmona MD [address] [place] [address] 40189 PCP - General Family Medicine 07/14/24 Barry Kilpatrick MD [address] [place] [address] [id number] [place] [address] Neurology 07/19/14 Michelle Henderson I, RN Nurse Coordinator Neurology 07/19/14 Rio Jaquez MD [address] [place] [address] Family Practice 10/15/14 Jemima Jaramillo MD oil field pipeline supervisor 11/20/14 Kelley Chin, TANIA [address] 133075 Nurse Coordinator Cardiology 11/04/15 Sydnee Saleem MD [address] [place] [address] 508 [place], [place] 183655 Cardiology 11/04/15 Karlene Moya MD 516 [place], [place] 132905 Ophthalmology 06/24/17 Wilbert Quintero OD 909 [place], [place] 369265 Optometry 06/24/17 Rod Gauthier DPM 909 [place], [place] 577875 Lens Cleaner Primary Podiatric Medicine 06/21/18 Jan Mahmood MD 516 [facility] 2A [place], [place] 227395 MD Gastroenterology 11/05/20 Brandt Quintana MD [facility]4 [place] [address] Resident 11/05/20 Jan Mahmood MD 6 [facility] 2A [place], [place] 161435 Assigned Gastroenterology Provider 12/01/20 Rio Jaquez MD 909 [facility] 4 [place] [address] Assigned PCP 11/17/20 09/30/24 Dom Eason MD 717 [facility] 353 [place] [address] Internal Medicine 12/02/20 Jayla Plaza, RN Specialty Wireless Communications Engineer Hepatology 01/09/21 02/13/24 Jaimie Vernon, TANIA Specialty Wireless Communications Engineer Cardiology 10/28/21 Ruth Riddle, DPM, Podiatry/Foot and Ankle Surgery [address] [place] [address] Assigned Musculoskeletal Provider 11/30/21 09/30/23 Marquise Hanley MD [address] [place] [address] Endocrinology, Diabetes, and Metabolism 03/05/22 Vlad Ramey MD [address] [place] [address] 89006 Cardiovascular Disease 05/07/22 Joesph Crowe MD [address] [place] [address] 17521 Surgery 05/07/22 Michelle Padilla RN Specialty Wireless Communications Engineer Cardiology 07/03/22 Marquise Hanley MD [address] [place] [address] Assigned Endocrinology Provider 08/15/22 Wagner Oliver MD [address] [place] [address] Critical Care 12/15/22 Laura Epperson, LULU [address] [place] [address] 1932 [place] [address] Assigned Nephrology Provider 02/20/23 08/30/24 Joesph Crowe MD [address] [place] [address] 62353 Surgery 03/17/23 Joesph Crowe MD [address] [place] [address] 31849 Assigned Surgical Provider 04/03/23 09/30/24 Adonay Haq MD [address] [place] [address] Internal Medicine 06/14/23OctoberDenilson MD 6405 [facility] CLEO Black [email or web address] W[address] [place] [address] Assigned Heart and Vascular Provider 05/29/23 11/28/24 Jason Alvares MD [address] [place] [address]365 Assigned Neuroscience Provider 05/15/23 11/28/24 Ruth Riddle, DPM, Podiatry/Foot and Ankle Surgery [address] [place], [place] 712027 Assigned Musculoskeletal Provider 10/22/23 Jignesh Mathias MD [address] [place] [address] 9[address] Gastroenterology 09/25/24 Adonay Haq MD [address] [place] [address] Assigned PCP 10/01/24 12/28/24 Omar Carmona MD [address] [place] [address] Assigned PCP 12/29/24 Jason Alvares MD [address] [place] [address] Assigned Neuroscience Provider 12/29/24 Jignesh Mathias MD [address] [place] [address] Assigned Surgical Provider 12/29/24 Ayad Lopez, PhD LP [address] [place] [address] [id number] Assigned Behavioral Health Provider 02/28/25 Gavi Nieto PANavinC [address] [place] [address] [id number] Physician Beater Engineer Helper Dermatology 03/19/25 documented as of this encounter
--- OUTSIDE RECORDS SUMMARY | 2025-06-10 11:39 | XMS_ITS | Encounter Summary ---
Author Organization [facility] Address [address] [place] [address] Care Team Providers Care Office Services Assistant Name Role Phone Rio Jaquez MD Primary Care Provider Barry Kilpatrick MD Unavailable Michelle Henderson I RN Unavailable [phone] Rio Jaquez MD Unavailable +[phone] Jemima Jaramillo MD Unavailable Unavai Kelley Bautista RN Unavailable +[phone] Sydnee Saleem MD Unavailable +[phone] Karlene Moya MD Unavailable +[phone] Wilbert Quintero OD Unavailable +[phone] Rod Gauthier DPM Unavailable +[phone] Jan Mahmood MD Unavailable +[phone] Brandt Quintana MD Unavailable [phone] Jan Mahmood MD Unavailable +[phone] Rio Jaquez MD Unavailable +[phone] Dom Eason MD Unavailable Jayla Plaza RN Unavailable +[phone] Jaimie Vernon RN Unavailable Unavailable Marquise Hanley MD Unavailable +[phone] Vlad Ramey MD Unavailable +[phone] Joesph Crowe MD Unavailable + [phone] Michelle Padilla RN Unavailable Unavaila ble Marquise Hanley MD Unavailable +-[phone] Wagner Oliver MD Unavailable +[phone] Laura Epperson NP Unavailable + [phone] Joesph Crowe MD Unavailable + [phone] Joesph Crowe MD Unavailable + [phone] Adonay Haq MD Unavailable +[phone] Denilson Srinivasan MD Unavailable + [phone] Jason Alvares MD Unavailable Ruth Riddle DPM, Podiatry /Foot and Ankle Surgery Unavailable Omar Carmona MD Primary Care Provider [phone] Jignesh Mathias MD Unavailable Adonay Haq MD Unavailable [phone] Omar Carmona MD Unavailable +[phone] Jason Alvares MD Unavailable Jignesh Mathias MD Unavailable Ayad Lopez PhD LP Unavailable +[phone] Gavi Nieto PA-C Unavailable +[phone] Encounter Details Date Type Department Care Team (Late st Contact Info) Description 10/13/2023 [facility] [address] [address] Rio Jaquez MD [address] [address] Social History Tobacco Use Types Packs/Day Years [...] Answer Date Recorded PHQ-2 Score 2 08/26/2023 [facility] of Occupat ional [...] Sex Assigned at Female 09/12/2020 12:05 PM SYSTEMS PROGRAMMER ANALYST Legal Sex Female 3:26 AM SYSTEMS PROGRAMMER ANALYST Gender Identity Female 09/12/2020 12:05 PM SYSTEMS PROGRAMMER ANALYST Sexual Orientation Straight 12/19/2021 10 :44 AM CDT Occupation Industry Job Start Date Job End Date on disability for FMS Not on file Not on file Not on file disabled Not on file Not on file Not on file documented as of this encounter Plan of Treatment Upcoming Encounters Date Type Department Care Team (Late st Contact Info) Description 06/13/2025 6:00 PM SYSTEMS PROGRAMMER ANALYST Ancillary Procedure [address] [address] Omar Carmona MD [address] [place] [address] 358905 06/14/2025 4:00 PM SYSTEMS PROGRAMMER ANALYST Office Visit [facility] Primary Care [address] [phone] Omar Carmona MD [address] [place] [address] 436065 06/15/2025 12:45 PM SYSTEMS PROGRAMMER ANALYST Therapy Visit [facility] 150 [place] [phone] Jason Alvares MD [address] [place] [address] 309615 Ch[facility]illo, OTR [facility] 150 [place], [place] 348427 06/19/2025 10:30 AM SYSTEMS PROGRAMMER ANALYST Virtual Visit [facility] Primary Care [address] [phone] Omar Carmona MD [address] [place] [address] 461515 Gerson Santos [facility] 06/26/2025 11:00 AM SYSTEMS PROGRAMMER ANALYST Therapy Visit [facility] [address] [place] [phone] Jason Alvares MD [address] [place] [address] 085255 Chaya Castillo OTR [facility] 150 [place], [place] 979477 07/09/2025 12:45 PM SYSTEMS PROGRAMMER ANALYST Therapy Visit [facility] Rehabilitation Services [facility] 150 [place] [phone] Jason Alvares MD 420 [facility] 295 [place] [address] Chaya Castillo, OTR [facility] 150 [place] [address] 07/18/2025 3:00 PM SYSTEMS PROGRAMMER ANALYST Office Visit [facility] Heart [address] [phone] Adonay Chapman APRN [facility] 500 [place] [address] 11/05/2025 12:30 PM CDT Lab [facility] Lab [address]st [place] [phone] 11/05/2025 1:45 PM CDT Office Visit [facility] Dermatology [address] 3rd [place] [phone] Gavi Nieto PANavinC Dermatology [address] [place] [address] 11/20/2025 10:30 AM CDT Virtual Visit [address] [address] Marquise Hanley MD [address] [place] [address] 784975 documented as of this encounter Goals Goal [...] Total Score: 9 06/14/20 23 7:18 AM SYSTEMS PROGRAMMER ANALYST documented as of this encounter Care Teams Office Services Assistant Relationship Specialty Start Date End Date Rio Jaquez MD [address] [place] [address] PCP - General Family Practice 12/02/10 07/13/24 Omar Carmona MD [address] [place] [address] 803275 PCP - General Family Medicine 07/14/24 Barry Kilpatrick MD [address] [place] [address] [id number] [place], [place] 333095 Neurology 07/19/14 Michelle Henderson I, TANIA Nurse Coordinator Neurology 07/19/14 Rio Jaquez MD [address] [place] [address] 790735 Family Practice 10/15/14 Jemima Jaramillo MD fbi profiler 11/20/14 Kelley Chin, TANIA [address] 178495 Nurse Coordinator Cardiology 11/04/15 Sydnee Saleem MD [facility] 508 [place], [place] 091355 Cardiology 11/04/15 Karlene Moya MD 516 [place], [place] 460455 Ophthalmology 06/24/17 Wilbert Quintero, OD 9 [place], [place] 655275 Optometry 06/24/17 Rod Gauthier DPM 909 [place], [place] 575115 Milliner Helper Primary Podiatric Medicine 06/21/18 Jan Mahmood MD [address] [place] [address] 2[address] [place], [place] 347825 MD Gastroenterology 11/05/20 Brandt Quintana MD [facility]4 [place] [address] Resident 11/05/20 Jan aMhmood MD 6 [facility] 2[address] [place] [address] Assigned Gastroenterology Provider 12/01/20 Rio Jaquez MD 9 [facility] [place] 4 [place], [place] 852015 Assigned PCP 11/17/20 09/30/24 Dom Eason MD 717 [facility] MICHAEL 353 [place] [address] Internal Medicine 12/02/20 Jayla Plaza, RN Specialty Package Maker Hepatology 01/09/21 02/13/24 Jaimie Vernon, TANIA Specialty Package Maker Cardiology 10/28/21 Marquise Hanley MD [address] [place] [address] Endocrinology, Diabetes, and Metabolism 03/05/22 Vlad Ramey MD [address] [place] [address] Cardiovascular Disease 05/07/22 Joesph Crowe MD [address] [place] [address] 9[address] Surgery 05/07/22 Michelle Padilla RN Specialty Package Maker Cardiology 07/03/22 Marquise Hanley MD [address] [place] [address] Assigned Endocrinology Provider 08/15/22 Wagner Oliver MD [address] [place] [address] Critical Care 12/15/22 Laura Epperson NP [address] [place] [address] 1932 [place] [address] Assigned Nephrology Provider 02/20/23 08/30/24 Joesph Crowe MD [address] [place] [address] 609[address] Surgery 03/17/23 Joesph Crowe MD [address] [place] [address]3748 Assigned Surgical Provider 04/03/23 09/30/24 Adonay Haq MD [address] [place] [address] Internal Medicine 06/14/23October, Denilson Jackson MD 6405 [facility] [address] [place], [place] 119795 Assigned Heart and Vascular Provider 05/29/23 11/28/24 Jason Alvares MD [address] [place] [address] 176975 Assigned Neuroscience Provider 05/15/23 11/28/24 Ruth Riddle DPM, Podiatry/Foot and Ankle Surgery [address] 142527 Assigned Musculoskeletal Provider 10/22/23 Jignesh Mathias MD [address] [place] [address] 119[address] Gastroenterology 09/25/24 Adonay Haq MD [address] [place] [address] Assigned PCP 10/01/24 12/28/24 Omar Carmona MD [address] [place] [address] Assigned PCP 12/29/24 Jason Alvares MD 420 [facility] 295 [place] [address] Assigned Neuroscience Provider 12/29/24 Jignesh Mathias MD [address] [place] [address] Assigned Surgical Provider 12/29/24 Ayad Lopez, PhD LP 516 [place] [address] Assigned Behavioral Health Provider 02/28/25 Gavi Nieto PANavinC [address] [place] [address] [phone] Physician Lead Applications Developer Dermatology 03/19/25 documented as of this encounter
--- OUTSIDE RECORDS SUMMARY | 2025-06-10 11:39 | XMS_ITS | Encounter Summary ---
Author Organization [facility] Address [address] [place] [address] Care Team Providers Care Chief Scientific Officer Name Role Phone Rio Jaquez MD Primary Care Provider Barry Kilpatrick MD Unavailable Michelle Henderson I RN Unavailable [phone] Rio Jaquez MD Unavailable +[phone] Jemima Jaramillo MD Unavailable Unavai Kelley Bautista RN Unavailable [phone] Sydnee Saleem MD Unavailable [phone] Karlene Moya MD Unavailable Wilbert Quintero OD Unavailable +[phone] Rod Gauthier DPM Unavailable Jan Mahmood MD Unavailable [phone] Brandt Quintana MD Unavailable Jan Mahmood MD Unavailable +[phone] Rio Jaquez MD Unavailable [phone] Dom Eason MD Unavailable Jayla Plaza RN Unavailable +[phone] Jaimie Vernon RN Unavailable Unavailable Marquise Hanley MD Unavailable +[phone] Vlad Ramey MD Unavailable +[phone] Joesph Crowe MD Unavailable + [phone] Michelle Padilla RN Unavailable Unavaila ble Marquise Hanley MD Unavailable +[phone] Wagner Oliver MD Unavailable +[phone] Laura Epperson NP Unavailable + [phone] Joesph Crowe MD Unavailable +[phone] Joesph Crowe MD Unavailable + [phone] Adonay Haq MD Unavailable [phone] Denilson Srinivasan MD Unavailable + [phone] Jason Alvares MD Unavailable Ruth Riddle DPM, Podiatry /Foot and Ankle Surgery Unavailable Omar Carmona MD Primary Care Provider [phone] Jignesh Mathias MD Unavailable Adonay Haq MD Unavailable [phone] Omar Carmona MD Unavailable +[phone] Jason Alvares MD Unavailable Jignesh Mathias MD Unavailable Ayad Lopez PhD LP Unavailable +[phone] Gavi Nieto PA-C Unavailable [phone] Encounter Details Date Type Department Care Team (Late st Contact Info) Description 11/09/2023 [facility] Hepatology [address] [address] Jan Mahmood MD 6 [facility] 2A [place] [address] Social History Tobacco Use Types Packs/Day Years [...] any clubs o r organizations such as bahai groups, unions, fraternal or athletic groups, or [...] Date Recorded PHQ-2 Score 2 08/26/2023 [facility] - Occupational Stress Questionnaire [...] Sex Assigned at Female 09/12/2020 12:05 PM ASSISTANT COMMUNITY MANAGER Legal Sex Female 3:26 AM ASSISTANT COMMUNITY MANAGER Gender Identity Female 09/12/2020 12:05 PM ASSISTANT COMMUNITY MANAGER Sexual Orientation Straight 12/19/2021 10 :44 AM CDT Occupation Industry Job Start Date Job End Date on disability for FMS Not on file Not on file Not on file disabled Not on file Not on file Not on file documented as of this encounter Plan of Treatment Upcoming Encounters Date Type Department Care Team (Late st Contact Info) Description 06/13/2025 6:00 PM ASSISTANT COMMUNITY MANAGER Ancillary Procedure [address] [address] Omar Carmona MD [address] [place] [address] 895225 06/14/2025 4:00 PM ASSISTANT COMMUNITY MANAGER Office Visit [facility] Primary Care [address] [phone] Omar Carmona MD [address] [place] [address] 531635 06/15/2025 12:45 PM ASSISTANT COMMUNITY MANAGER Therapy Visit [facility] 150 [place] [phone] Jason Alvares MD [address] [place] [address] 597475 Chaya Castillo, OTR [facility] 150 [place], [place] 838507 06/19/2025 10:30 AM ASSISTANT COMMUNITY MANAGER Virtual Visit [facility] Care [address] [phone] Omar Carmona MD [address] [place] [address] 624505 Gerson Santos [facility] 06/26/2025 11:00 AM ASSISTANT COMMUNITY MANAGER Therapy Visit [facility] 150 [place] [phone] Jason Alvares MD [address] [place] [address] 530825 Chaya Castillo, OTR [facility] 150 [place] [address] 07/09/2025 12:45 PM ASSISTANT COMMUNITY MANAGER Therapy Visit [facility] Rehabilitation Services [facility] 150 [place] [phone] Jason Alvares MD 420 [facility] 295 [place] [address] Chaya Castillo, OTR [facility] 150 [place] [address] 07/18/2025 3:00 PM ASSISTANT COMMUNITY MANAGER Office Visit [facility] Heart [address] [phone] Adonay Chapman APRN [facility] 500 [place] [address] 11/05/2025 12:30 PM CDT Lab [facility] Lab [address] [place] [phone] 11/05/2025 1:45 PM CDT Office Visit [facility] Dermatology [address]rd [place] [phone] Gavi Nieto PANavinC Dermatology [address] [place] [address] 11/20/2025 10:30 AM CDT Virtual Visit [address] [address] Marquise Hanley MD [address] [place] [address] 669205 documented as of this encounter Goals Goal [...] Total Score: 9 06/14/20 23 7:18 AM ASSISTANT COMMUNITY MANAGER documented as of this encounter Care Teams Chief Scientific Officer Relationship Specialty Start Date End Date Rio Jaquez MD [address] [place] [address]86 PCP - General Family Practice 12/02/10 07/13/24 Omar Carmona MD [address] [place] [address] 40585 PCP - General Family Medicine 07/14/24 Barry Kilpatrick MD [address] [place] [address] [id number] [place], [place] 424265 Neurology 07/19/14 Michelle Henderson I, TANIA Nurse Coordinator Neurology 07/19/14 Rio Jaquez MD [address] [place] [address] 783805 Family Practice 10/15/14 Jemima Jaramillo MD skelp processor 11/20/14 Kelley Chin, TANIA [address] 877125 Nurse Coordinator Cardiology 11/04/15 Sydnee Saleem MD 420 [facility] 508 [place], [place] 443475 Cardiology 11/04/15 Karlene Moya MD 516 [place], [place] 673875 MD Ophthalmology 06/24/17 Wilbert Quintero, OD 909 [place], [place] 664425 Optometry 06/24/17 Rod Gauthier DPM 909 [place], [place] 387165 Healthcare Consultant Primary Podiatric Medicine 06/21/18 Jan Mahmood MD 6 [facility] 2A [place], [place] 596465 MD Gastroenterology 11/05/20 Brandt Quintana MD [facility]4 [place] [address] Resident 11/05/20 Jan Mahmood MD 6 [facility] 2A [place], [place] 562315 Assigned Gastroenterology Provider 12/01/20 Rio Jaquez MD 909 [facility] FL 4 [place], [place] 834855 Assigned PCP 11/17/20 09/30/24 Dom Eason MD 717 [facility] MICHAEL 353 [place], [place] 914464 Internal Medicine 12/02/20 Jayla Plaza, RN Specialty Manager Fashion Hepatology 01/09/21 02/13/24 Jaimie Vernon, TANIA Specialty Manager Fashion Cardiology 10/28/21 Marquise Hanley MD [address] [place] [address] Endocrinology, Diabetes, and Metabolism 03/05/22 Vlad Rmaey MD [address] [place] [address]187 Cardiovascular Disease 05/07/22 Joesph Crowe MD [address] [place] [address] Surgery 05/07/22 Michelle Padilla RN Specialty Manager Fashion Cardiology 07/03/22 Marquise Hanley MD [address] [place] [address] 94[address] Assigned Endocrinology Provider 08/15/22 Wagner Oliver MD [address] [place] [address] Critical Care 12/15/22 Laura Epperson NP [address] [place] [address] 1932 [place] [address] Assigned Nephrology Provider 02/20/23 08/30/24 Joesph Crowe MD [address] [place] [address] 34[address] Surgery 03/17/23 Joesph Crowe MD [address] [place] [address] Assigned Surgical Provider 04/03/23 09/30/24 Adonay Haq MD [address] [place] [address] Internal Medicine 06/14/23October, Denilson Jackson MD 6405 [facility] CLEO [facility] [address] [place], [place] 685955 Assigned Heart and Vascular Provider 05/29/23 11/28/24 Jason Alvares MD [address] [place] [address] 588455 Assigned Neuroscience Provider 05/15/23 11/28/24 Ruth Riddle DPM, Podiatry/Foot and Ankle Surgery [address] [place] [address] [place] [address] 261607 Assigned Musculoskeletal Provider 10/22/23 Jignesh Mathias MD [address] [place] [address] Gastroenterology 09/25/24 Adonay Haq MD [address] [place] [address] 701665 Assigned PCP 10/01/24 12/28/24 Omar Carmona MD [address] [place] [address] Assigned PCP 12/29/24 Jason Alvares MD 420 [facility] 295 [place] [address] Assigned Neuroscience Provider 12/29/24 Jignesh Mathias MD [address] [place] [address] 978825 Assigned Surgical Provider 12/29/24 Ayad Lopez, PhD LP 516 [place], [place] 073145 Assigned Behavioral Health Provider 02/28/25 Gavi Nieto, PANavinC [address] [place] [address] 310845 Physician Office Analyst Dermatology 03/19/25 documented as of this encounter
--- OUTSIDE RECORDS SUMMARY | 2025-06-10 11:39 | XMS_ITS | Encounter Summary ---
Author Organization [place] Address [address] [place] [address] Care Team Providers Care Laborer Marine Terminal Name Role Phone Rio Jaquez MD Primary Care Provider Barry Kilpatrick MD Unavailable Michelle Henderson I RN Unavailable [phone] Rio Jaquze MD Unavailable +[phone] Jemima Jaramillo MD Unavailable Unavai Kelley Bautista RN Unavailable +[phone] Sydnee Saleem MD Unavailable +[phone] Karlene Moya MD Unavailable +[phone] Wilbert Quintero OD Unavailable +[phone] Rod Gauthier DPM Unavailable Jan Mahmood MD Unavailable +[phone] Brandt Quintana MD Unavailable +[phone] Jan Mahmood MD Unavailable +[phone] Rio Jaquez MD Unavailable +[phone] Dom Eason MD Unavailable Jayla Plaza RN Unavailable +[phone] Jaimie Vernon RN Unavailable Unavailable Marquise Hanley MD Unavailable +[phone] Vlad Ramey MD Unavailable +[phone] Joesph Crowe MD Unavailable + [phone] Michelle Padilla RN Unavailable Unavaila ble Marquise Hanley MD Unavailable +-[phone] Wagner Oliver MD Unavailable +[phone] Laura Epperson NP Unavailable + [phone] Joesph Crowe MD Unavailable + [phone] Joesph Crowe MD Unavailable + [phone] Adonay Haq MD Unavailable [phone] Denilson Srinivasan MD Unavailable + [phone] Jason Alvares MD Unavailable Ruth Riddle DPM, Podiatry /Foot and Ankle Surgery Unavailable Omar Carmona MD Primary Care Provider [phone] Jignesh Mathias MD Unavailable Adonay Haq MD Unavailable [phone] Omar Carmona MD Unavailable +[phone] Jason Alvares MD Unavailable Jignesh Mathias MD Unavailable Ayad Lopez PhD LP Unavailable +[phone] Gavi Nieto PA-C Unavailable +[phone] Encounter Details Date Type Department Care Team (Late st Contact Info) Description 10/04/2023 [facility] Hepatology [address] [address] Jayla Plaza, RN Social History [...] Answer Date Recorded PHQ-2 Score 2 08/26/2023 [facility] - Occupational Stress Questionnaire Answer [...] Assigned at Female 09/12/2020 12:05 PM SUPERVISOR DRAPERY HANGING Legal Sex Female 3:26 AM SUPERVISOR DRAPERY HANGING Gender Identity Female 09/12/2020 12:05 PM SUPERVISOR DRAPERY HANGING Sexual Orientation Straight 12/19/2021 10 :44 AM CDT Occupation Industry Job Start Date Job End Date on disability for FMS Not on file Not on file Not on file disabled Not on file Not on file Not on file documented as of this encounter Plan of Treatment Upcoming Encounters Date Type Department Care Team (Late st Contact Info) Description 06/13/2025 6:00 PM SUPERVISOR DRAPERY HANGING Ancillary Procedure [facility] [address] [phone] Omar Carmona MD [address] [place] [address] 06/14/2025 4:00 PM SUPERVISOR DRAPERY HANGING Office Visit [facility] Primary Care [address] [phone] Omar Carmona MD [address] [place] [address] 716[address] 06/15/2025 12:45 PM SUPERVISOR DRAPERY HANGING [facility] [address] [place] [phone] Jason Alvares MD [address] [place] [address] Chaya Castillo, OTR [facility] 150 [place], [place] 590927 06/19/2025 10:30 AM SUPERVISOR DRAPERY HANGING Virtual Visit [facility] Primary Care [address] [phone] Omar Carmona MD [address] [place] [address] Gerson Santos [facility] 06/26/2025 11:00 AM SUPERVISOR DRAPERY HANGING [facility] [address] [place] [phone] Jason Alvares MD [address] [place] [address] 242075 Chaya Castillo, OTR [facility] 150 [place] [address] 07/09/2025 12:45 PM SUPERVISOR DRAPERY HANGING Therapy [facility] [address] [place] [phone] Jason Alvares MD [address] [facility] [address] [place] [address] Chaya Castillo, OTR [facility] 150 [place] [address] 07/18/2025 3:00 PM SUPERVISOR DRAPERY HANGING Office Visit [facility] Heart [address] [phone] Adonay Chapman APRN [facility] 500 [place], [place] 515935 11/05/2025 12:30 PM CDT Lab [facility] Lab [address] 1st [place] [phone] 11/05/2025 1:45 PM CDT Office Visit [facility] Dermatology [address] [phone] Gavi Nieto PA-C Dermatology [address] [place] [address] 11/20/2025 10:30 AM CDT Virtual Visit [address] [address] Marquise Hanley MD [address] [place] [address] documented as of this encounter Goals Goal [...] Score: 9 06/14/20 23 7:18 AM SUPERVISOR DRAPERY HANGING documented as of this encounter Care Teams Laborer Marine Terminal Relationship Specialty Start Date End Date Rio Jaquez MD [address] [place] [address] 94812 PCP - General Family Practice 12/02/10 07/13/24 Omar Carmona MD [address] [place] [address] [phone] PCP - General Family Medicine 07/14/24 Barry Kilpatrick MD [address] [place] [address] [id number] [place], [place] 734505 Neurology 07/19/14 Michelle Henderson I, RN Nurse Coordinator Neurology 07/19/14 Rio Jaquez MD [address] [place] [address] 526265 Family Practice 10/15/14 Jemima Jaramillo MD cafeteria counter attendant 11/20/14 Kelley Chin, TANIA [address] 327505 Nurse Coordinator Cardiology 11/04/15 Sydnee Saleem MD [address] [place] [address] 508 [place] [address] Cardiology 11/04/15 Karlene Moya MD 6 [place] [address] Ophthalmology 06/24/17 Wilbert Quintero OD [address] [place] [address]100 Optometry 06/24/17 Rod Gauthier DPM [address] [place] [address] 99011 Production Technician Primary Podiatric Medicine 06/21/18 Jan Mahmood MD [address] [place] [address] 144[address] Gastroenterology 11/05/20 Brandt Quintana MD [address] [place] [address] Resident 11/05/20 Jan Mahmood MD [address] [place] [address] Assigned Gastroenterology Provider 12/01/20 Rio Jaquez MD [address] [place] [address] 4 [place] [address] Assigned PCP 11/17/20 09/30/24 Dom Eason MD 717 [facility] 353 [place] [address] Internal Medicine 12/02/20 Jayla Plaza, RN Specialty Gym Supervisor Hepatology 01/09/21 02/13/24 Jaimie Vernon, RN Specialty Gym Supervisor Cardiology 10/28/21 Marquise Hanley MD [address] [place] [address] 32717 Endocrinology, Diabetes, and Metabolism 03/05/22 Vlad Ramey MD [address] [place] [address] 90880 Cardiovascular Disease 05/07/22 Joesph Crowe MD [address] [place] [address] 54797 MD Surgery 05/07/22 Michelle Padilla RN Specialty Gym Supervisor Cardiology 07/03/22 Marquise Hanley MD [address] [place] [address] 0[address]98 Assigned Endocrinology Provider 08/15/22 Wagner Oliver MD [address] [facility] [place] [address] Critical Care 12/15/22 Laura Epperson NP [address] [place] [address] 1932 [place] [address] Assigned Nephrology Provider 02/20/23 08/30/24 Joesph Crowe MD [address] [place] [address] 47805 Surgery 03/17/23 Joesph Crowe MD [address] [place] [address] 26423 Assigned Surgical Provider 04/03/23 09/30/24 Adonay Haq MD [address] [place] [address]20 Internal Medicine 06/14/23OctoberDenilson MD [address] [facility] [address] [place] [address] Assigned Heart and Vascular Provider 05/29/23 11/28/24 Jason Alvares MD [address] [place] [address] 84432 Assigned Neuroscience Provider 05/15/23 11/28/24 Ruth Riddle DPM, Podiatry/Foot and Ankle Surgery [address] [place] [address] Assigned Musculoskeletal Provider 10/22/23 Jignesh Mathias MD [address] [place] [address] 31223 Gastroenterology 09/25/24 Adonay Haq MD [address] [place] [address] Assigned PCP 10/01/24 12/28/24 Omar Carmona MD [address] [place] [address]1589 Assigned PCP 12/29/24 Jason Alvares MD [address] [place] [address] 146795 Assigned Neuroscience Provider 12/29/24 Jignesh Mathias MD [address] [place] [address] 15153 Assigned Surgical Provider 12/29/24 Ayad Lopez, PhD LP [address] [place] [address] 226595 Assigned Behavioral Health Provider 02/28/25 Gavi Nieto, PANavinC [address] [place], [place] 753965 Physician Steel Box Toe Inserter Dermatology 03/19/25 documented as of this encounter
--- OUTSIDE RECORDS SUMMARY | 2025-06-10 11:39 | XMS_ITS | Encounter Summary ---
Author Organization [place] Address [address] [place] [address] Care Team Providers Care Ping Pong Table Assembler Name Role Phone Rio Jaquez MD Primary Care Provider Barry Kilpatrick MD Unavailable Michelle Henderson I RN Unavailable [phone] Rio Jaquez MD Unavailable +[phone] Jemima Jaramillo MD Unavailable Unavai Kelley Bautista RN Unavailable [phone] Sydnee Saleem MD Unavailable [phone] Karlene Moya MD Unavailable Wilbert Quintero OD Unavailable +[phone] Rod Gauthier DPM Unavailable Jan Mahmood MD Unavailable [phone] Brandt Quintana MD Unavailable Jan Mahmood MD Unavailable +[phone] Rio Jaquez MD Unavailable [phone] Dom Eason MD Unavailable Jayla Plaza RN Unavailable +[phone] Jaimie Vernon RN Unavailable Unavailable Marquise Hanley MD Unavailable +[phone] Vlad Ramey MD Unavailable +[phone] Joesph Crowe MD Unavailable + [phone] Michelle Padilla RN Unavailable Unavaila ble Marquise Hanley MD Unavailable +[phone] Wagner Oliver MD Unavailable +[phone] Laura Epperson NP Unavailable + [phone] Joesph Crowe MD Unavailable [phone] Joesph Crowe MD Unavailable + [phone] Adonay Haq MD Unavailable [phone] Denilson Srinivasan MD Unavailable + [phone] Jason Alvares MD Unavailable Ruth Riddle DPM, Podiatry /Foot and Ankle Surgery Unavailable Omar Carmona MD Primary Care Provider [phone] Jignesh Mahtias MD Unavailable Adonay Haq MD Unavailable [phone] Omar Carmona MD Unavailable +[phone] Jason Alvares MD Unavailable Jignesh Mathias MD Unavailable Ayad Lopez PhD LP Unavailable +[phone] Gavi Nieto PA-C Unavailable [phone] Encounter Details Date Type Department Care Team (Late st Contact Info) Description 12/15/2023 [facility] Hepatology [address] [phone] Jan Mahmood MD 6 [facility] 2[address] [place] [address] Social History Tobacco Use Types Packs/Day Years [...] Score 2 08/26/2023 [facility] - Occupational [...] Sex Assigned at Female 09/12/2020 12:05 PM RECORD CLERK Legal Sex Female 3:26 AM RECORD CLERK Gender Identity Female 09/12/2020 12:05 PM RECORD CLERK Sexual Orientation Straight 12/19/2021 10 :44 AM CDT Occupation Industry Job Start Date Job End Date on disability for FMS Not on file Not on file Not on file disabled Not on file Not on file Not on file documented as of this encounter Plan of Treatment Upcoming Encounters Date Type Department Care Team (Late st Contact Info) Description 06/13/2025 6:00 PM RECORD CLERK Ancillary Procedure [address] [address] Omar Carmona MD [address] [place] [address] 379775 06/14/2025 4:00 PM RECORD CLERK Office [facility] Primary Care [address] [phone] Omar Carmona MD [address] [place] [address] 010665 06/15/2025 12:45 PM RECORD CLERK Therapy Visit [facility] 150 [place] [phone] Jason Alvares MD [address] [place] [address] 932745 Chaya Castillo, OTR [facility] 150 [place], [place] 241727 06/19/2025 10:30 AM RECORD CLERK Virtual Visit [facility] Care [address] [phone] Omar Carmona MD [address] [place] [address] 909245 Gerson Santos [facility] 06/26/2025 11:00 AM RECORD CLERK Therapy Visit [facility] [address] [place] [phone] Jason Alvares MD [address] [place] [address] 714185 Chaya Castillo, OTR [facility] 150 [place] [address] 07/09/2025 12:45 PM RECORD CLERK Therapy Visit [facility] Rehabilitation Services [facility] 150 [place] [phone] Jason Alvares MD [address] [facility] 295 [place] [address] Chaya Castillo, OTR [facility] 150 [place] [address] 07/18/2025 3:00 PM RECORD CLERK Office [facility] Heart [address] [phone] Adonay Chapman APRN [facility] 500 [place] [address] 11/05/2025 12:[address] [facility] Lab [address] [place] [phone] 11/05/2025 1:45 PM CDT Office [facility] Dermatology [address]rd [place] [phone] Gavi Nieto PANavinC Dermatology [address] [place] [address] 11/20/2025 10:30 AM CDT Virtual Visit [address] [address] Marquise Hanley MD [address] [place] [address] 676775 documented as of this encounter Goals Goal [...] Total Score: 9 06/14/20 23 7:18 AM RECORD CLERK documented as of this encounter Care Teams Ping Pong Table Assembler Relationship Specialty Start Date End Date Rio Jaquez MD [address] [place] [address]65 PCP - General Family Practice 12/02/10 07/13/24 Omar Carmona MD [address] [place] [address] 30547 PCP - General Family Medicine 07/14/24 Barry Kilpatrick MD [address] [place] [address] [id number] [place], [place] 261255 Neurology 07/19/14 Michelle Henderson I, TANIA Nurse Coordinator Neurology 07/19/14 Rio Jaquez MD [address] [place] [address] 630045 Family Practice 10/15/14 Jemima Jaramillo MD hard tile setter 11/20/14 Kelley Chin, TANIA [address] 413115 Nurse Coordinator Cardiology 11/04/15 Sydnee Saleem MD [address] [facility] 508 [place], [place] 163545 Cardiology 11/04/15 Karlene Moya MD 516 [place], [place] 292685 MD Ophthalmology 06/24/17 Wilbert Quintero, OD 909 [place], [place] 918105 Optometry 06/24/17 Rod Gauthier DPM 909 [place], [place] 306355 Workers Compensation Adjuster Primary Podiatric Medicine 06/21/18 Jan Mahmood MD 6 [facility] 2A [place], [place] 760235 MD Gastroenterology 11/05/20 Brandt Quintana MD [facility]4 [place] [address] Resident 11/05/20 Jan Mahmood MD 6 [facility] 2A [place], [place] 817425 Assigned Gastroenterology Provider 12/01/20 Rio Jaquez MD 909 [facility] 4 [place], [place] 862985 Assigned PCP 11/17/20 09/30/24 Dom Eason MD 717 [facility] 353 [place], [place] 440754 Internal Medicine 12/02/20 Jayla Plaza, RN Specialty Drafter Refrigeration Hepatology 01/09/21 02/13/24 Jaimie Vernon, TANIA Specialty Drafter Refrigeration Cardiology 10/28/21 Marquise Hanley MD [address] [place] [address] 20226 Endocrinology, Diabetes, and Metabolism 03/05/22 Vlad Ramey MD [address] [place] [address] 81044 Cardiovascular Disease 05/07/22 Joesph Crowe MD [address] [place] [address] 24146 Surgery 05/07/22 Michelle Padilla RN Specialty Drafter Refrigeration Cardiology 07/03/22 Marquise Hanley MD [address] [place] [address] 28600 Assigned Endocrinology Provider 08/15/22 Wagner Oliver MD [address] [place] [address] Critical Care 12/15/22 Laura Epperson NP [address] [place] [address] 1932 [place] [address] Assigned Nephrology Provider 02/20/23 08/30/24 Joesph Crowe MD [address] [place] [address] 23797 Surgery 03/17/23 Joesph Crowe MD [address] [place] [address] 83943 Assigned Surgical Provider 04/03/23 09/30/24 Adonay Haq MD [address] [place] [address] 93069 Internal Medicine 06/14/23October, Denilson Jackson MD [address] [facility] [address] [place], [place] 064755 Assigned Heart and Vascular Provider 05/29/23 11/28/24 Jason Alvares MD [address] [place] [address] 455895 Assigned Neuroscience Provider 05/15/23 11/28/24 Ruth Riddle DPM, Podiatry/Foot and Ankle Surgery [address] [place] [place] [address] 583157 Assigned Musculoskeletal Provider 10/22/23 Jignesh Mathias MD [address] [place] [address] 51497 Gastroenterology 09/25/24 Adonay Haq MD [address] [place] [address] 261185 Assigned PCP 10/01/24 12/28/24 Omar Carmona MD [address] [place] [address] 49593 Assigned PCP 12/29/24 Jason Alvares MD [address] [facility] 295 [place] [address] Assigned Neuroscience Provider 12/29/24 Jignesh Mathias MD [address] [place] [address] 721805 Assigned Surgical Provider 12/29/24 Ayad Lopez, PhD LP [address] [place], [place] 506045 Assigned Behavioral Health Provider 02/28/25 Gavi Nieto, PANavinC [address] [place] [address] 089635 Physician Warp Worker Dermatology 03/19/25 documented as of this encounter
--- OUTSIDE RECORDS SUMMARY | 2025-06-10 11:39 | XMS_ITS | Encounter Summary ---
Author Organization [facility] Address [address] [place] [address]199 Care Team Providers Care Supervisor Advertising Dispatch Clerks Name Role Phone Rio Jaquez MD Primary Care Provider Barry Kilpatrick MD Unavailable Michelle Henderson I RN Unavailable [phone] Rio Jaquez MD Unavailable +[phone] Jemima Jaramillo MD Unavailable Unavai Kelley Bautista RN Unavailable [phone] Sydnee Saleem MD Unavailable +[phone] Karlene Moya MD Unavailable +[phone] Wilbert Quintero OD Unavailable +[phone] Rod Gauthier DPM Unavailable Jan Mahmood MD Unavailable +[phone] Brandt Quintana MD Unavailable [phone] Jan Mahmood MD Unavailable +[phone] Rio Jaquez MD Unavailable +[phone] Dom Eason MD Unavailable Jayla Plaza RN Unavailable +[phone] Jaimie Vernon RN Unavailable Unavailable Ruth Riddle DPM, Podiatry /Foot and Ankle Surgery Unavailable Marquise Hanley MD Unavailable +[phone] Vlad Ramey MD Unavailable +[phone] Joesph Crowe MD Unavailable + [phone] Michelle Padilla RN Unavailable Unavaila ble Marqusie Hanley MD Unavailable +[phone] Wagner Oliver MD Unavailable +[phone] Laura Epperson NP Unavailable +[phone] Joesph Crowe MD Unavailable + [phone] Joesph Crowe MD Unavailable + [phone] Adonay Haq MD Unavailable [phone] OctoberDenilson MD Unavailable + [phone] Jason Alvares MD Unavailable Ruth Riddle DPM, Podiatry /Foot and Ankle Surgery Unavailable Omar Carmona MD Primary Care Provider [phone] Jignesh Mathias MD Unavailable Adonay Haq MD Unavailable [phone] Omar Carmona MD Unavailable +[phone] Jason Alvares MD Unavailable Jignesh Mathias MD Unavailable Ayad Lopez PhD LP Unavailable +[phone] Gavi Nieto PA-C Unavailable +[phone] Encounter Details Date Type Department Care Team (Late st Contact Info) Description 09/20/2023 [facility] [address] [phone] Lizbeth Lopes Social History Tobacco Use Types [...] than three times a week 08/27/2021 Attends [employer] Not on file 08/27 Do you [...] Answer Date Recorded PHQ-2 Score 2 08/26/2023 [facility] - Occupational Stress Questionnaire [...] Sex Assigned at Female 09/12/2020 12:05 PM STRAP SEWER Legal Sex Female 3:26 AM STRAP SEWER Gender Identity Female 09/12/2020 12:05 PM STRAP SEWER Sexual Orientation Straight 12/19/2021 10 :44 AM CDT Occupation Industry Job Start Date Job End Date on disability for FMS Not on file Not on file Not on file disabled Not on file Not on file Not on file documented as of this encounter Plan of Treatment Upcoming Encounters Date Type Department Care Team (Late st Contact Info) Description 06/13/2025 6:00 PM STRAP SEWER Ancillary Procedure [address] [phone] Omar Carmona MD [address] [place] [address] 06/14/2025 4:00 PM STRAP SEWER Office Visit [facility] [address] [phone] Omar Carmona MD [address] [place] [address] 756325 06/15/2025 12:45 PM STRAP SEWER Therapy Visit [facility] 150 [place] [phone] Jason Alvares MD [address] [place] [address] 475365 Chaya Castillo OTR [facility] 150 [place], [place] 792907 06/19/2025 10:30 AM STRAP SEWER Virtual Visit [facility] [address] [phone] Omar Carmona MD [address] [place] [address] [facility] 06/26/2025 11:00 AM STRAP SEWER Therapy [facility] [place] [phone] Jason Alvares MD [address] [place] [address] 435835 Chaya Castillo, OTR [facility] [address] [facility] [place], [place] 248927 07/09/2025 12:45 PM STRAP SEWER [facility] 150 [place] [address]215114 Jason Alvares MD 420 [facility] 295 [place] [address] Chaya Castillo, OTR [facility] 150 [place] [address] 07/18/2025 3:00 PM STRAP SEWER Office Visit [facility] [address] [phone] Adonay Chapman APRN [facility] 500 [place], [place] 498085 11/05/2025 12:30 PM CDT Lab [facility] [address] 1st [place] [phone] 11/05/2025 1:45 PM CDT Office Visit [facility] [address] 3rd [place] [phone] Gavi Nieto PA-C Dermatology [address] [place] [address] 11/20/2025 10:30 AM CDT Virtual Visit [address] [phone] Marquise Hanley MD [address] [place] [address] 710135 documented as of this encounter Goals Goal [...] Total Score: 9 06/14/20 23 7:18 AM STRAP SEWER documented as of this encounter Care Teams Supervisor Advertising Dispatch Clerks Relationship Specialty Start Date End Date Rio Jaquez MD [address] [place] [address] 4 [place] [address] PCP - General Family Practice 12/02/10 07/13/24 Omar Carmona MD [address] [place] [address]261 PCP - General Family Medicine 07/14/24 Barry Kilpatrick MD [address] [place] [address] [id number] [place] [address] Neurology 07/19/14 Michelle Henderson I, RN Nurse Coordinator Neurology 07/19/14 Rio Jaquez MD [address] [place] [address] 42037 Family Practice 10/15/14 Jemima Jaramillo MD calender feeder 11/20/14 Kelley Chin, TANIA [address] 334285 Nurse Coordinator Cardiology 11/04/15 Sydnee Saleem MD [address] [place] [address] 508 [place], [place] 698045 Cardiology 11/04/15 Karlene Moya MD 516 [place], [place] 606685 Ophthalmology 06/24/17 Wilbert Quintero OD 909 [place], [place] 916795 Optometry 06/24/17 Rod Gauthier DPM [address] [place], [place] 352235 Rubber Flap Tuber Machine Operator Primary Podiatric Medicine 06/21/18 Jan Mahmood MD 516 [facility] 2A [place], [place] 192945 MD Gastroenterology 11/05/20 Brandt Quintana MD [facility]4 [place] [address] Resident 11/05/20 Jan Mahmood MD 6 [facility] 2A [place], [place] 545235 Assigned Gastroenterology Provider 12/01/20 Rio Jaquez MD 909 [facility] 4 [place] [address] Assigned PCP 11/17/20 09/30/24 Dom Eason MD 717 [facility] 353 [place] [address] Internal Medicine 12/02/20 Jayla Plaza, RN Specialty Welt Butter Hand Hepatology 01/09/21 02/13/24 Jaimie Vernon, TANIA Specialty [employer] Hand Cardiology 10/28/21 Ruth Riddle, DPM, Podiatry/Foot and Ankle Surgery [address] [place] [address] Assigned Musculoskeletal Provider 11/30/21 09/30/23 Marquise Hanley MD [address] [place] [address] Endocrinology, Diabetes, and Metabolism 03/05/22 Vlad Ramey MD [address] [place] [address] 84820 Cardiovascular Disease 05/07/22 Joesph Crowe MD [address] [place] [address] 99365 Surgery 05/07/22 Michelle Padilla RN Specialty [employer] Hand Cardiology 07/03/22 Marquise Hanley MD [address] [place] [address] 75753 Assigned Endocrinology Provider 08/15/22 Wagner Oliver MD [address] [place] [address] Critical Care 12/15/22 Laura Epperson, LULU [address] [place] [address] 1932 [place] [address] Assigned Nephrology Provider 02/20/23 08/30/24 Joesph Crowe MD [address] [place] [address] 57688 Surgery 03/17/23 Joesph Crowe MD [address] [place] [address] 69569 Assigned Surgical Provider 04/03/23 09/30/24 Adonay Haq MD [address] [place] [address]42 Internal Medicine 06/14/23OctoberDenilson MD 6405 [facility] [address] [place] [address] Assigned Heart and Vascular Provider 05/29/23 11/28/24 Jason Alvares MD [address] [place] [address] 67391 Assigned Neuroscience Provider 05/15/23 11/28/24 Ruth Riddle, DPM, Podiatry/Foot and Ankle Surgery [address] [place], [place] 948917 Assigned Musculoskeletal Provider 10/22/23 Jignesh Mathias MD [address] [place] [address] 27445 Gastroenterology 09/25/24 Adonay Haq MD [address] [place] [address] 29825 Assigned PCP 10/01/24 12/28/24 Omar Carmona MD [address] [place] [address] 55455 Assigned PCP 12/29/24 Jason Alvares MD [address] [place] [address]455 Assigned Neuroscience Provider 12/29/24 Jignesh Mathias MD [address] [place] [address]455 Assigned Surgical Provider 12/29/24 Ayad Lopez, PhD LP [address] [place] [address] [id number] Assigned Behavioral Health Provider 02/28/25 Gavi Nieto PANavinC [address] [place] [address] [phone] Physician Turbine Engineer Dermatology 03/19/25 documented as of this encounter
--- OUTSIDE RECORDS SUMMARY | 2025-06-10 11:39 | XMS_ITS | Encounter Summary ---
Author Organization [facility] Address [address] [place] [address]98 Care Team Providers Care Supervisor Tubing Name Role Phone Rio Jaquez MD Primary Care Provider Barry Kilpatrick MD Unavailable Michelle Henderson I RN Unavailable [phone] Rio Jaquez MD Unavailable +[phone] Jemima Jaramillo MD Unavailable Unavai Kelley Bautista RN Unavailable [phone] Sydnee Saleem MD Unavailable +[phone] Karlene Moya MD Unavailable +[phone] Wilbert Quintero OD Unavailable +[phone] Rod Gauthier DPM Unavailable +[phone] Jan Mahmood MD Unavailable [phone] Brandt Quintana MD Unavailable Jan Mahmood MD Unavailable +[phone] Rio Jaquez MD Unavailable [phone] Dom Eason MD Unavailable Jayla Plaza RN Unavailable +[phone] Jaimie Vernon RN Unavailable Unavailable Ruth RiddleM, Podiatry /Foot and Ankle Surgery Unavailable Marquise Hanley MD Unavailable +[phone] Vlad Ramey MD Unavailable +[phone] Joesph Crowe MD Unavailable + [phone] Michelle Padilla RN Unavailable Unavaila ble Marquise Hanley MD Unavailable +[phone] Wagner Oliver MD Unavailable +[phone] Laura Epperson NP Unavailable +[phone] Thom Taveras MD Unavailable +[phone] Joesph Crowe MD Unavailable + [phone] Joesph Crowe MD Unavailable + [phone] Adonay Haq MD Unavailable [phone] Denilson Srinivasan MD Unavailable + [phone] Jason Alvares MD Unavailable Ruth Riddle DPM, Podiatry /Foot and Ankle Surgery Unavailable Omar Carmona MD Primary Care Provider [phone] Jignesh Mathias MD Unavailable Adonay Haq MD Unavailable +[phone] Omar Carmona MD Unavailable +[phone] Jason Alvares MD Unavailable Jignesh Mathias MD Unavailable Ayad Lopez PhD LP Unavailable +[phone] Gavi Nieto PA-C Unavailable [phone] Encounter Details Date Type Department Care Team (Late st Contact Info) Description 06/29/2023 [facility] Medical Advice [facility] End[facility]inology Clinic [address] 3rd [place] [address] Shara Payne, RN Social History [...] Answer Date Recorded PHQ-2 Score 2 06/14/2023 [facility] [...] in an overnight halfway, or couch-surfing.) Yes 06/06/2023 Are you worried [...] Sex Assigned at Female 09/12/2020 12:05 PM BATH ATTENDANT Legal Sex Female 3:26 AM BATH ATTENDANT Gender Identity Female 09/12/2020 12:05 PM BATH ATTENDANT Sexual Orientation Straight 12/19/2021 10 :44 AM CDT Occupation Industry Job Start Date Job End Date on disability for FMS Not on file Not on file Not on file disabled Not on file Not on file Not on file documented as of this encounter Plan of Treatment Upcoming Encounters Date Type Department Care Team (Late st Contact Info) Description 06/13/2025 6:00 PM BATH ATTENDANT Ancillary Procedure [address] 1st [place] [phone] Omar Carmona MD [address] [place] [address] 056485 06/14/2025 4:00 PM BATH ATTENDANT Office Visit [facility] [address] [phone] Omar Carmona MD [address] [place] [address] 884815 06/15/2025 12:45 PM BATH ATTENDANT Therapy Visit [facility] 150 [place] [phone] Jason Alvares MD [address] [place] [address] 908335 Chaya Castillo, OTR [facility] 150 [place], [place] 328267 06/19/2025 10:30 AM BATH ATTENDANT Virtual Visit [facility] [address] [phone] Omar Carmona MD [address] [place] [address] 973475 Gerson Santos RPH 06/26/2025 11:00 AM BATH ATTENDANT Therapy [facility] 150 [place] [phone] Jason Alvares MD [address] [place] [address] 789365 Chaya Castillo, OTR [facility] 150 [place] [address] 07/09/2025 12:45 PM BATH ATTENDANT Therapy Visit [facility] [address] [phone] Jason Alvares MD 420 [facility] 295 [place] [address] Chaya Castillo, OTR [facility] 150 [place] [address] 07/18/2025 3:00 PM BATH ATTENDANT Office Visit [facility] [address] [phone] Adonay Chapman APRN [facility] 500 [place], [place] 144285 11/05/2025 12:30 PM CDT Lab [facility] [address] 1st [place] [phone] 11/05/2025 1:45 PM CDT Office Visit [facility] Dermatology [address] 3rd [place] [phone] Gavi Nieto PA-C Dermatology [address] [place] [address]81 11/20/2025 10:30 AM CDT Virtual Visit [address] [place] [address] Marquise Hanley MD [address] [place] [address] 461325 documented as of this encounter Goals Goal [...] Total Score: 9 06/14/20 23 7:18 AM BATH ATTENDANT documented as of this encounter Care Teams Supervisor Tubing Relationship Specialty Start Date End Date Rio Jaquez MD [address] [place] [address] [phone] PCP - General Family Practice 12/02/10 07/13/24 Omar Carmona MD [address] [place] [address] [phone] PCP - General Family Medicine 07/14/24 Barry Kilpatrick MD [address] [place] [address] [id number] [place], [place] 082565 Neurology 07/19/14 Michelle Henderson RN Nurse Coordinator Neurology 07/19/14 Rio Jaquez MD [address] [place] [address] 983185 Family Practice 10/15/14 Jemima Jaramillo MD spine surgeon 11/20/14 Kelley Chin, TANIA [address] 034375 Nurse Coordinator Cardiology 11/04/15 Sydnee Saleem MD [address] [place] [address] 508 [place] [address] Cardiology 11/04/15 Karlene Moya MD [address] [place] [address] 60889 Ophthalmology 06/24/17 Wilbert Quintero, OD [address] [place] [address] 803175 Optometry 06/24/17 Rod Gauthier DPM [address] [place] [address] [phone] Barrel Endshake Adjuster Primary Podiatric Medicine 06/21/18 Jan Mahmood MD [address] [place] [address] 517055 MD Gastroenterology 11/05/20 Brandt Quintana MD [address] [place] [address] 14749 Resident 11/05/20 Jan Mahmood MD [address] [place] [address] 88722 Assigned Gastroenterology Provider 12/01/20 Rio Jaquez MD [address] [place] [address] 858535 Assigned PCP 11/17/20 09/30/24 Dom Eason MD 717 [facility] 353 [place], [place] 956764 Internal Medicine 12/02/20 Jayla Plaza, RN Specialty Timber Selector Hepatology 01/09/21 02/13/24 Jaimie Vernon, RN Specialty Timber Selector Cardiology 10/28/21 Ruth Riddle DPM, Podiatry/Foot and Ankle Surgery [address] [place] [address] Assigned Musculoskeletal Provider 11/30/21 09/30/23 Marquise Hanley MD [address] [place] [address] 03457 Endocrinology, Diabetes, and Metabolism 03/05/22 Vlad Ramey MD [address] [place] [address] 28323 Cardiovascular Disease 05/07/22 Joesph Crowe MD [address] [place] [address] 95593 Surgery 05/07/22 Michelle Padilla RN Specialty Timber Selector Cardiology 07/03/22 Marquise Hanley MD [address] [place] [address] 69623 Assigned Endocrinology Provider 08/15/22 Wagner Oliver MD [address] [place] [address] Critical Care 12/15/22 Laura Epperson NP [address] [place], [place] [address] [place] [address] Assigned Nephrology Provider 02/20/23 08/30/24 Thom Taveras MD [address] [place], [place] 4713005 [place] [address] Assigned Cancer Care Provider 02/06/23 08/20/23 Joseph Crowe MD [address] [place] [address] 61157 MD Surgery 03/17/23 Joesph Crowe MD [address] [place] [address] 01830 Assigned Surgical Provider 04/03/23 09/30/24 Adonay Haq MD [address] [place] [address] 72650 Internal Medicine 06/14/23OctoberDenilson MD 6405 [facility] [address] [place] [address] Assigned Heart and Vascular Provider 05/29/23 11/28/24 Jason Alvares MD [address] [place] [address] 295 [place] [address] Assigned Neuroscience Provider 05/15/23 11/28/24 Ruth Riddle DPM, Podiatry/Foot and Ankle Surgery [address] [place] [address] Assigned Musculoskeletal Provider 10/22/23 Jignesh Mathias MD [address] [place] [address] 40481 Gastroenterology 09/25/24 Adonay Haq MD [address] [place] [address] 118725 Assigned PCP 10/01/24 12/28/24 Omar Carmona MD [address] [place] [address] [phone] Assigned PCP 12/29/24 Jason Alvares MD [address] [place] [address] 700935 Assigned Neuroscience Provider 12/29/24 Jignesh Mathias MD [address] [place] [address] 26850 Assigned Surgical Provider 12/29/24 Ayad Lopez, PhD LP [address] [place] [address] 806945 Assigned Behavioral Health Provider 02/28/25 Gavi Nieto, PA-C [address] [place] [address] 657585 Physician Core Man Dermatology 03/19/25 documented as of this encounter
--- OUTSIDE RECORDS SUMMARY | 2025-06-10 11:39 | XMS_ITS | Encounter Summary ---
Author Organization [facility] Address [address] [place] [address]10 Care Team Providers Care Pricing Coordinator Name Role Phone Rio Jaquez MD Primary Care Provider Barry Kilpatrick MD Unavailable Michelle Henderson I RN Unavailable [phone] Rio Jaquez MD Unavailable +[phone] Jemima Jaramillo MD Unavailable Unavai Kelley Bautista RN Unavailable +[phone] Sydnee Saleem MD Unavailable +[phone] Karlene Moya MD Unavailable Wilbert Quintero OD Unavailable +[phone] Rod Gauthier DPM Unavailable Jan Mahmood MD Unavailable +[phone] Brantd Quintana MD Unavailable +[phone] Jan Mahmood MD Unavailable +[phone] Rio Jaquez MD Unavailable +[phone] Dom Eason MD Unavailable Jayla Plaza RN Unavailable +[phone] Jaimie Vernon RN Unavailable Unavailable Ruth Riddle DPM, Podiatry /Foot and Ankle Surgery Unavailable Marquise Hanley MD Unavailable +[phone] Vlad Ramey MD Unavailable +[phone] Joesph Crowe MD Unavailable + [phone] Michelle Padilla RN Unavailable Unavaila ble Marquise Hanley MD Unavailable +[phone] Wagner Oliver MD Unavailable +[phone] Laura Epperson NP Unavailable +[phone] Joesph Crowe MD Unavailable + [phone] Joesph Crowe MD Unavailable + [phone] Adonay Haq MD Unavailable +[phone] OctoberDenilson MD Unavailable + [phone] Jason Alvares MD Unavailable Ruth Riddle DPM, Podiatry /Foot and Ankle Surgery Unavailable Omar Carmona MD Primary Care Provider [phone] Jignesh Mathias MD Unavailable Adonay Haq MD Unavailable +[phone] Omar Carmona MD Unavailable +[phone] Jason Alvares MD Unavailable Jignesh Mathias MD Unavailable Ayad Lopez PhD Unavailable +[phone] Gavi Nieto PA-C Unavailable +[phone] Encounter Details Date Type Department Care Team (Late st Contact Info) Description 08/30/2023 [facility] [address] [facility] [address] [place] [address] Radha Blanco LPN Social History [...] Answer Date Recorded PHQ-2 Score 2 08/26/2023 [facility] [...] Assigned at Female 09/12/2020 12:05 PM MACHINE ROOM OPERATOR Legal Sex Female 3:26 AM MACHINE ROOM OPERATOR Gender Identity Female 09/12/2020 12:05 PM MACHINE ROOM OPERATOR Sexual Orientation Straight 12/19/2021 10 [...] Contact Info) Description 06/13/2025 6:00 PM MACHINE ROOM OPERATOR Ancillary Procedure [address] [address] Omar Carmona MD [address] [place] [address] 445885 06/14/2025 4:00 PM MACHINE ROOM OPERATOR Office Visit [facility] [address] [phone] Omar Carmona MD [address] [place] [address] 383825 06/15/2025 12:45 PM MACHINE ROOM OPERATOR Therapy Visit [facility] 150 [place] [phone] Jason Alvares MD [address] [place] [address] 944025 Chaya Castillo, OTR [facility] 150 [place], [place] 360087 06/19/2025 10:30 AM MACHINE ROOM OPERATOR Virtual Visit [facility] Care [address] [phone] Omar Carmona MD [address] [place] [address] 678015 Gerson Santos [facility] 06/26/2025 11:00 AM MACHINE ROOM OPERATOR Therapy Visit [facility] 150 [place] [phone] Jason Alvares MD [address] [place] [address] 620035 Chaya Castillo, OTR [facility] 150 [place] [address] 07/09/2025 12:45 PM MACHINE ROOM OPERATOR Therapy Visit [facility] 150 [place] [phone] Jason Alvares MD 420 [facility] 295 [place] [address] Chaya Castillo, OTR [facility] 150 [place] [address] 07/18/2025 3:00 PM MACHINE ROOM OPERATOR Office Visit [facility] Heart [address] [phone] Adonay Chapman APRN [facility] 500 [place] [address] 11/05/2025 12:30 PM CDT Lab [facility] [address] 1st [place] [phone] 11/05/2025 1:45 PM CDT Office Visit [facility] Dermatology [address] 3rd [place] [phone] Gavi Nieto PANavinC Dermatology [address] [place] [address] 11/20/2025 10:30 AM CDT Virtual Visit [address] [address] Marquise Hanley MD [address] [place] [address] 062915 documented as of this encounter Goals Goal [...] Total Score: 9 06/14/20 23 7:18 AM MACHINE ROOM OPERATOR documented as of this encounter Care Teams Pricing Coordinator Relationship Specialty Start Date End Date Rio Jaquez MD [address] [place] [address] 83169 PCP - General Family Practice 12/02/10 07/13/24 Omar Carmona MD [address] [place] [address] 00330 PCP - General Family Medicine 07/14/24 Barry Kilpatrick MD [address] [place] [address] [id number] [place], [place] 260955 Neurology 07/19/14 Michelle Henderson I, TANIA Nurse Coordinator Neurology 07/19/14 Rio Jaquez MD [address] [place] [address] 608015 Family Practice 10/15/14 Jemima Jaramillo MD qa software tester 11/20/14 Kelley Chin, TANIA [address] [phone] Nurse Coordinator Cardiology 11/04/15 Sydnee Saleem MD 420 [facility] 508 [place], [place] 007345 Cardiology 11/04/15 Karlene Moya MD 516 [place], [place] 276635 MD Ophthalmology 06/24/17 Wilbert Quintero, OD 909 [place], [place] 049385 Optometry 06/24/17 Rod Gauthier DPM 909 [place], [place] 084825 Funds Transfer Clerk Primary Podiatric Medicine 06/21/18 Jan Mahmood MD 6 [facility]A [place], [place] [phone] MD Gastroenterology 11/05/20 Brandt Quintana MD [facility]4 [place] [address] Resident 11/05/20 Jan Mahmood MD 6 [facility] [address]A [place], [place] 894945 Assigned Gastroenterology Provider 12/01/20 Rio Jaquez MD 909 [facility] [address] 4 [place], [place] 984915 Assigned PCP 11/17/20 09/30/24 Dom Eason MD 717 [facility] MICHAEL 353 [place], [place] 341504 Internal Medicine 12/02/20 Jayla Plaza, RN Specialty Beam Dyer Operator Hepatology 01/09/21 02/13/24 Jaimie Vernon, TANIA Specialty Beam Dyer Operator Cardiology 10/28/21 Ruth Riddle, DPM, Podiatry/Foot and Ankle Surgery [address] [place] [address] Assigned Musculoskeletal Provider 11/30/21 09/30/23 Marquise Hanley MD [address] [place] [address] Endocrinology, Diabetes, and Metabolism 03/05/22 Vlad Ramey MD [address] [place] [address] 077165 Cardiovascular Disease 05/07/22 Joesph Crowe MD [address] [place] [address]4660 MD Surgery 05/07/22 Michelle Padilla RN Specialty Beam Dyer Operator Cardiology 07/03/22 Marquise Hanley MD [address] [place] [address]15[address] Assigned Endocrinology Provider 08/15/22 Wagner Oliver MD [address] [place] [address] Critical Care 12/15/22 Laura Epperson NP 717 [facility] 1932 [place] [address] Assigned Nephrology Provider 02/20/23 08/30/24 Joesph Crowe MD [address] [place] [address] 26516 MD Surgery 03/17/23 Joesph Crowe MD [address] [place] [address] 79417 Assigned Surgical Provider 04/03/23 09/30/24 Adonay Haq MD [address] [place] [address] 285685 Internal Medicine 06/14/23OctoberDenilson MD [address] [facility]00 [place], [place] 011955 Assigned Heart and Vascular Provider 05/29/23 11/28/24 Jason Alvares MD [address] [place] [address] [phone] Assigned Neuroscience Provider 05/15/23 11/28/24 Ruth Riddle DPM, Podiatry/Foot and Ankle Surgery [address] [place]Z [address] [place] [address] 9[address] Assigned Musculoskeletal Provider 10/22/23 Jignesh Mathias MD [address] [place] [address] 194245 Gastroenterology 09/25/24 Adonay Haq MD [address] [place] [address] 714335 Assigned PCP 10/01/24 12/28/24 Omar Carmona MD [address] [place] [address]455 Assigned PCP 12/29/24 Jason Alvares MD [address] [place] [address] Assigned Neuroscience Provider 12/29/24 Jignesh Mathias MD [address] [place] [address]455 Assigned Surgical Provider 12/29/24 Ayad Lopez, PhD LP [address] [place] [address] Assigned Behavioral Health Provider 02/28/25 Gavi Nieto PA-C [address] [place] [address] [phone] Physician Director Ship Dermatology 03/19/25 documented as of this encounter
--- OUTSIDE RECORDS SUMMARY | 2025-06-10 11:39 | XMS_ITS | Encounter Summary ---
Author Organization [facility] Address [address] [place] [address] 72029 Care Team Providers Care Roll Machine Operator Name Role Phone Roi Jaquez MD Primary Care Provider Barry Kilpatrick MD Unavailable Michelle Henderson I RN Unavailable [phone] Rio Jaquez MD Unavailable +[phone] Jemima Jaramillo MD Unavailable Unavai Kelley Bautista RN Unavailable [phone] Sydnee Saleem MD Unavailable +[phone] Karlene Moya MD Unavailable +[phone] Wilbert Quintero OD Unavailable +[phone] Rod Gauthier DPM Unavailable Jan Mahmood MD Unavailable [phone] Brandt Quintana MD Unavailable [phone] Jan Mahmood MD Unavailable +[phone] Rio Jaquez MD Unavailable [phone] Dom Eason MD Unavailable Jayla Plaza RN Unavailable +[phone] Jaimie Vernon RN Unavailable Unavailable Marquise Hanley MD Unavailable +[phone] Vlad Ramey MD Unavailable +[phone] Joesph Crowe MD Unavailable + [phone] Michelle Padilla RN Unavailable Unavaila ble Marquise Hanley MD Unavailable +[phone] Wagner Oliver MD Unavailable +[phone] Laura Epperson NP Unavailable +[phone] Joesph Crowe MD Unavailable +[phone] Joesph Crowe MD Unavailable + [phone] Adonay Haq MD Unavailable [phone] Denilson Srinivasan MD Unavailable + [phone] Jason Alvares MD Unavailable Ruth Riddle DPM, Podiatry /Foot and Ankle Surgery Unavailable Omar Carmona MD Primary Care Provider +[phone] Jignesh Mathias MD Unavailable Adonay Haq MD Unavailable [phone] Omar Carmona MD Unavailable +[phone] Jason Alvares MD Unavailable Jignesh Mathias MD Unavailable Ayad Lopez PhD LP Unavailable +[phone] Gavi Nieto PA-C Unavailable +[phone] Encounter Details Date Type Department Care Team (Late st Contact Info) Description 10/12/2023 [facility] Medical Advice [facility] [address] [facility], [address] [place] [address] Jason Alvares MD 420 [facility] 295 [place] [address] Social History Tobacco Use Types Packs/Day Years [...] Answer Date Recorded PHQ-2 Score 2 08/26/2023 [facility] [...] Sex Assigned at Female 09/12/2020 12:05 PM HELICOPTER REPAIRER Legal Sex Female 3:26 AM HELICOPTER REPAIRER Gender Identity Female 09/12/2020 12:05 PM HELICOPTER REPAIRER Sexual Orientation Straight 12/19/2021 10 :44 AM CDT Occupation Industry Job Start Date Job End Date on disability for FMS Not on file Not on file Not on file disabled Not on file Not on file Not on file documented as of this encounter Plan of Treatment Upcoming Encounters Date Type Department Care Team (Late st Contact Info) Description 06/13/2025 6:00 PM HELICOPTER REPAIRER Ancillary Procedure [address] [place] [address] Omar Carmona MD [address] [place] [address] 678635 06/14/2025 4:00 PM HELICOPTER REPAIRER Office Visit [facility] [address] [phone] Omar Carmona MD [address] [place] [address] 892765 06/15/2025 12:45 PM HELICOPTER REPAIRER Therapy Visit [facility] 150 [place] [phone] Jason Alvares MD [address] [place] [address] 017215 Chaya Castillo, OTR [facility] 150 [place], [place] 078347 06/19/2025 10:30 AM HELICOPTER REPAIRER Virtual Visit [facility] Care [address] [phone] Omar Carmona MD [address] [place] [address] 557575 Gerson Santos [facility] 06/26/2025 11:00 AM HELICOPTER REPAIRER Therapy Visit [facility] 150 [place] [phone] Jason Alvares MD [address] [place] [address] [phone] Chaya Castillo, OTR [facility] 150 [place], [place] 775137 07/09/2025 12:45 PM HELICOPTER REPAIRER Therapy Visit [facility] 150 [place] [phone] Jason Alvares MD 420 [facility] 295 [place] [address] Chaya Castillo, OTR [facility] 150 [place] [address] 07/18/2025 3:00 PM HELICOPTER REPAIRER Office Visit [facility] Heart [address] [phone] Adonay Chapman APRN [facility] 500 [place], [place] 857625 11/05/2025 12:30 PM CDT Lab [facility] Lab [address]st [place] [phone] 11/05/2025 1:45 PM CDT Office Visit [facility] Dermatology [address]rd [place] [phone] Gavi Nieto PANavinC Dermatology [address] [place] [address]25 11/20/2025 10:30 AM CDT Virtual Visit [address] [address] Marquise Hanley MD [address] [place] [address] 392385 documented as of this encounter Goals Goal [...] Total Score: 9 06/14/20 23 7:18 AM HELICOPTER REPAIRER documented as of this encounter Care Teams Roll Machine Operator Relationship Specialty Start Date End Date Rio Jaquez MD [address] [place] [place] [address] 36821 PCP - General Family Practice 12/02/10 07/13/24 Omar Carmona MD [address] [place] [address] 869735 PCP - General Family Medicine 07/14/24 Barry Kilpatrick MD [address] [place] [address] [id number] [place], [place] 485505 Neurology 07/19/14 Michelle Henderson I, TANIA Nurse Coordinator Neurology 07/19/14 Rio Jaquez MD [address] [place] [place] [address] 540265 Family Practice 10/15/14 Jemima Jaramillo MD ordnance artificer helper 11/20/14 Kelley Chin, TANIA [address] 936735 Nurse Coordinator Cardiology 11/04/15 Sydnee Saleem MD [facility] 508 [place], [place] 544825 Cardiology 11/04/15 Karlene Moya MD 516 [place], [place] 740295 Ophthalmology 06/24/17 Wilbert Quintero, OD 909 [place], [place] 881195 Optometry 06/24/17 Rod Gauthier DPM 9 [place], [place] 223885 Ring Rolling Machine Operator Primary Podiatric Medicine 06/21/18 Jan Mahmood MD [address] [facility] 2A [place], [place] 652145 MD Gastroenterology 11/05/20 Brandt Quintana MD 1414 [place] [address] Resident 11/05/20 Jan Mahmood MD [address] [facility] 2A [place], [place] 600045 Assigned Gastroenterology Provider 12/01/20 Rio Jaquez MD 909 [facility] [address] 4 [place], [place] 574125 Assigned PCP 11/17/20 09/30/24 Dom Eason MD 717 [facility]EL 353 [place] [address] Internal Medicine 12/02/20 Jayla Plaza, RN Specialty Stem Roller Operator Hepatology 01/09/21 02/13/24 Jaimie Vernon, TANIA Specialty Stem Roller Operator Cardiology 10/28/21 Marquise Hanley MD [address] [place] [address] 06953 Endocrinology, Diabetes, and Metabolism 03/05/22 Vlad Ramey MD [address] [place] [address] 94813 Cardiovascular Disease 05/07/22 Joesph Crowe MD [address] [place] [address] 32827 Surgery 05/07/22 Michelle Padilla RN Specialty Stem Roller Operator Cardiology 07/03/22 Marquise Hanley MD [address] [place] [address] 33266 Assigned Endocrinology Provider 08/15/22 Wagner Oliver MD [address] [place] [address] Critical Care 12/15/22 Laura Epperson, LULU [address] [place] [address] 1932 [place] [address] Assigned Nephrology Provider 02/20/23 08/30/24 Joesph Crowe MD [address] [place] [address] 88169 Surgery 03/17/23 Joesph Crowe MD [address] [place] [address] 84958 Assigned Surgical Provider 04/03/23 09/30/24 Adonay Haq MD [address] [place] [address] 89530 Internal Medicine 06/14/23October, Denilson Jackson MD [address] [facility] [address] [place], [place] 828955 Assigned Heart and Vascular Provider 05/29/23 11/28/24 Jason Alvares MD [address] [place] [address] 835325 Assigned Neuroscience Provider 05/15/23 11/28/24 Ruth Riddle DPM, Podiatry/Foot and Ankle Surgery [address] [place] [address] [place] [address] 239187 Assigned Musculoskeletal Provider 10/22/23 Jignesh Mathias MD [address] [place] [address] 74366 Gastroenterology 09/25/24 Adonay Haq MD [address] [place] [address] 795855 Assigned PCP 10/01/24 12/28/24 Omar Carmona MD [address] [place] [address] 40307 Assigned PCP 12/29/24 Jason Alvares MD 420 [facility] 295 [place] [address] Assigned Neuroscience Provider 12/29/24 Jignesh Mathias MD [address] [place] [address] 661575 Assigned Surgical Provider 12/29/24 Ayad Lopez, PhD LP 516 [place], [place] 906405 Assigned Behavioral Health Provider 02/28/25 Gavi Nieto PANavinC [address] [place] [address] 539395 Physician Disaster Recovery Specialist Dermatology 03/19/25 documented as of this encounter
--- OUTSIDE RECORDS SUMMARY | 2025-06-10 11:39 | XMS_ITS | Encounter Summary ---
Author Organization [facility] Address [address] [place] [address] 12545 Care Team Providers Care Supply Aide Name Role Phone Rio Jaquez MD Primary Care Provider Barry Kilpatrick MD Unavailable Michelle Henderson I RN Unavailable [phone] Rio Jaquez MD Unavailable +[phone] Jemima Jaramillo MD Unavailable Unavai Kelley Bautista RN Unavailable [phone] Sydnee Saleem MD Unavailable +[phone] Karlene Moya MD Unavailable +[phone] Wilbert Quintero OD Unavailable +[phone] Rod Gauthier DPM Unavailable Jan Mahmood MD Unavailable +[phone] Brandt Quintana MD Unavailable Jan Mahmood MD Unavailable +[phone] Rio Jaquez MD Unavailable +[phone] Dom Eason MD Unavailable Jayla Plaza RN Unavailable +[phone] Jaimie Vernon RN Unavailable Unavailable Ruth RiddleM, Podiatry /Foot and Ankle Surgery Unavailable Marquise Hanley MD Unavailable +[phone] Vlad Ramey MD Unavailable +[phone] Joesph Crowe MD Unavailable + [phone] Michelle Padilla RN Unavailable Unavaila ble Marquise Hanley MD Unavailable +[phone] Wagner Oliver MD Unavailable +[phone] Laura Epperson NP Unavailable +-[phone] Thom Taveras MD Unavailable +[phone] Joesph Crowe MD Unavailable + [phone] Joesph Crowe MD Unavailable + [phone] Adonay Haq MD Unavailable [phone] Denilson Srinivasan MD Unavailable + [phone] Jason Alvares MD Unavailable Ruth Riddle DPM, Podiatry /Foot and Ankle Surgery Unavailable Omar Carmona MD Primary Care Provider [phone] Jignesh Mathias MD Unavailable Adonay Haq MD Unavailable +[phone] Omar Carmona MD Unavailable +[phone] Jason Alvares MD Unavailable Jignesh Mathias MD Unavailable Ayad Lopez PhD LP Unavailable +[phone] Gavi Nieto PA-C Unavailable +[phone] Encounter Details Date Type Department Care Team (Late st Contact Info) Description 08/19/2023 Licha Medical Advice [facility] Internal Medicine [address] 4th [place] [address] Lizbeth Lopes Social History Tobacco [...] Score 2 06/14/2023 [facility] - Occupational [...] Sex Assigned at Female 09/12/2020 12:05 PM SOCKET PULLER Legal Sex Female 3:26 AM SOCKET PULLER Gender Identity Female 09/12/2020 12:05 PM SOCKET PULLER Sexual Orientation Straight 12/19/2021 10 :44 AM CDT Occupation Industry Job Start Date Job End Date on disability for FMS Not on file Not on file Not on file disabled Not on file Not on file Not on file documented as of this encounter Plan of Treatment Upcoming Encounters Date Type Department Care Team (Late st Contact Info) Description 06/13/2025 6:00 PM SOCKET PULLER Ancillary Procedure [address] [place] [phone] Omar Carmona MD [address] [place] [address] 195345 06/14/2025 4:00 PM SOCKET PULLER Office Visit [facility] Primary Care [address] [phone] Omar Carmona MD [address] [place] [address] 058585 06/15/2025 12:45 PM SOCKET PULLER Therapy [facility] [place] [phone] Jason Alvares MD [address] [place] [address] 997215 Chaya Castillo OTR [facility] 150 [place], [place] 355407 06/19/2025 10:30 AM SOCKET PULLER Virtual Visit [facility] Primary Care [address] [phone] Omar Carmona MD [address] [place] [address] 655195 Gerson Santos [facility] 06/26/2025 11:00 AM SOCKET PULLER Therapy Visit [facility] [place] [phone] Jason Alvares MD [address] [place] [address] 043935 Chaya Castillo OTR [facility] 150 [facility] [place], [place] 738[address] 07/09/2025 12:45 PM SOCKET PULLER Therapy Visit [facility] Rehabilitation Services [facility] 150 [place] [phone] Jason Alvares MD 420 [facility] 295 [place] [address] Chaya Castillo, OTR [facility] 150 [place] [address] 07/18/2025 3:00 PM SOCKET PULLER Office Visit [facility] Heart [address] [phone] Adonay Chapman APRN [facility] 500 [place], [place] 253545 11/05/2025 12:30 PM CDT Lab [facility] Lab [address] [place] [phone] 11/05/2025 1:45 PM CDT Office Visit [facility] Dermatology [address] [place] [phone] Gavi Nieto PA-C Dermatology [address] [place] [address] 11/20/2025 10:30 AM CDT Virtual Visit [address] [place] [address] Marquise Hanley MD [address] [place] [address] [phone] documented as of this encounter Goals Goal [...] Total Score: 9 06/14/20 23 7:18 AM SOCKET PULLER documented as of this encounter Care Teams Supply Aide Relationship Specialty Start Date End Date Rio Jaquez MD [address] [place] [address] [phone] PCP - General Family Practice 12/02/10 07/13/24 Omar Carmona MD [address] [place] [address] [phone] PCP - General Family Medicine 07/14/24 Barry Kilpatrick MD [address] [place] [address] [id number] [place], [place] [phone] Neurology 07/19/14 Michelle Henderson I, TANIA Nurse Coordinator Neurology 07/19/14 Rio Jaquez MD [address] [place] [address] 104085 MD Family Practice 10/15/14 Jemima Jaramillo MD photovoltaic power systems engineer 11/20/14 Kelley Chin, TANIA [address] 252155 Nurse Coordinator Cardiology 11/04/15 Sydnee Saleem MD [address] [place] [address] 508 [place], [place] 385135 MD Cardiology 11/04/15 Karlene Moya MD 6 [place] [address] MD Ophthalmology 06/24/17 Wilbert Quintero, OD 9 [place], [place] 600985 Optometry 06/24/17 Rod Gauthier DPM 9 [place], [place] 802525 MD Manager Pharmacy Primary Podiatric Medicine 06/21/18 Jan Mahmood MD [address] [place] [address] 7[address] MD Gastroenterology 11/05/20 Brandt Quintana MD [address] [place] [address] 30914 Resident 11/05/20 Jan Mahmood MD [address] [place] [address] 39273 Assigned Gastroenterology Provider 12/01/20 Rio Jaquez MD 9 [facility] [place] [address] [place] [address] [phone] Assigned PCP 11/17/20 09/30/24 Dom Eason MD 7 [facility] [address] [place] [address] Internal Medicine 12/02/20 Jayla Plaza, RN Specialty Calibration Engineer Hepatology 01/09/21 02/13/24 Jaimie Vernon, RN Specialty Calibration Engineer Cardiology 10/28/21 Ruth Riddle, DPM, Podiatry/Foot and Ankle Surgery [address] [place] [address] Assigned Musculoskeletal Provider 11/30/21 09/30/23 Marquise Hanley MD [address] [place] [address] 06278 Endocrinology, Diabetes, and Metabolism 03/05/22 Vlad Ramey MD [address] [place] [address] [phone] Cardiovascular Disease 05/07/22 Joesph Crowe MD [address] [place] [address] 515115 Surgery 05/07/22 Michelle Padilla, RN Specialty Calibration Engineer Cardiology 07/03/22 Marquise Hanley MD [address] [place] [address] 79729 Assigned Endocrinology Provider 08/15/22 Wagner Oliver MD [address] [place] [address] Critical Care 12/15/22 Laura Epperson, LULU 717 [facility] 1932 [place] [address] Assigned Nephrology Provider 02/20/23 08/30/24 Thom Taveras MD [address] [place] [address] 60946 Assigned Cancer Care Provider 02/06/23 08/20/23 Joesph Crowe MD [address] [place] [address] 30651 MD Surgery 03/17/23 Joesph Crowe MD [address] [place] [address] 22208 Assigned Surgical Provider 04/03/23 09/30/24 Adonay Haq MD [address] [place] [address] 06889 Internal Medicine 06/14/23OctoberDenilson MD [address] [facility] [address] [place] [address] Assigned Heart and Vascular Provider 05/29/23 11/28/24 Jason Alvares MD [address] [place] [address] 295 [place] [address] Assigned Neuroscience Provider 05/15/23 11/28/24 Ruth Riddle DPM, Podiatry/Foot and Ankle Surgery [address] [place] [place] [address] Assigned Musculoskeletal Provider 10/22/23 Jignesh Mathias MD [address] [place] [address] 54688 Gastroenterology 09/25/24 Adonay Haq MD [address] [place] [address] 496085 Assigned PCP 10/01/24 12/28/24 Omar Carmona MD [address] [place] [address] [phone] Assigned PCP 12/29/24 Jason Alvares MD [address] [place] [address] 869875 Assigned Neuroscience Provider 12/29/24 Jignesh Mathias MD [address] [place] [address] [phone] Assigned Surgical Provider 12/29/24 Ayad Lopez, PhD LP [address] [place] [address] [phone] Assigned Behavioral Health Provider 02/28/25 Gavi Nieto PA-C [address] [place] [address] 028005 Physician Hearing Dog Trainer Dermatology 03/19/25 documented as of this encounter
--- OUTSIDE RECORDS SUMMARY | 2025-06-10 11:40 | XMS_ITS | Encounter Summary ---
Author Organization [facility] Address [address] [place] [address] 89247 Care Team Providers Care Loan Manager Name Role Phone Rio Jaquez MD Primary Care Provider Barry Kilpatrick MD Unavailable Michelle Henderson I RN Unavailable [phone] Rio Jaquez MD Unavailable +[phone] Jemima Jaramillo MD Unavailable Unavai Kelley Bautista RN Unavailable [phone] Sydnee Saleem MD Unavailable +[phone] Karlene Moya MD Unavailable Wilbert Quintero OD Unavailable +[phone] Rod Gauthier DPM Unavailable Jan Mahmood MD Unavailable [phone] Brandt Quintana MD Unavailable Jan Mahmood MD Unavailable +[phone] Rio Jaquez MD Unavailable [phone] Dom Eason MD Unavailable Jayla Plaza RN Unavailable +[phone] Jaimie Vernon RN Unavailable Unavailable Ruth RiddleM, Podiatry /Foot and Ankle Surgery Unavailable Marquise Hanley MD Unavailable +[phone] Vlad Ramey MD Unavailable +[phone] Joesph Crowe MD Unavailable + [phone] Michelle Padilla RN Unavailable Unavaila ble Marquise Hanley MD Unavailable +[phone] Wagner Oliver MD Unavailable +[phone] Laura Epperson NP Unavailable +[phone] Thom Taveras MD Unavailable +[phone] Joesph Crowe MD Unavailable + [phone] Joesph Crowe MD Unavailable + [phone] Adonay Haq MD Unavailable [phone] Denilson Srinivasan MD Unavailable + [phone] Jason Alvares MD Unavailable Ruth Riddle DPM, Podiatry /Foot and Ankle Surgery Unavailable Omar Carmona MD Primary Care Provider [phone] Jignesh Mathias MD Unavailable Adonay Haq MD Unavailable +[phone] Omar Carmona MD Unavailable +[phone] Jason Alvares MD Unavailable Jignesh Mathias MD Unavailable Ayad Lopez PhD LP Unavailable [phone] Gavi Nieto PA-C Unavailable +[phone] Encounter Details Date Type Department Care Team (Late st Contact Info) Description 07/10/2023 MyC Medical Advice [facility] General Surgery Clinic [address] [place] [address] Joesph Crowe MD [address] [place] [address] 419405 Social History Tobacco Use Types Packs/Day Years [...] Answer Date Recorded PHQ-2 Score 2 06/14/2023 [facility] [place] of Occupat ional Health - Occupational Stress [...] Assigned at Female 09/12/2020 12:05 PM MANAGER WOMEN Legal Sex Female 3:26 AM MANAGER WOMEN Gender Identity Female 09/12/2020 12:05 PM MANAGER WOMEN Sexual Orientation Straight 12/19/2021 10 :44 AM CDT Occupation Industry Job Start Date Job End Date on disability for FMS Not on file Not on file Not on file disabled Not on file Not on file Not on file documented as of this encounter Plan of Treatment Upcoming Encounters Date Type Department Care Team (Late st Contact Info) Description 06/13/2025 6:00 PM MANAGER WOMEN Ancillary Procedure [facility] Imaging [facility] CT Clinic [address] [place] [phone] Omar Carmona MD [address] [place] [address] [phone] 06/14/2025 4:00 PM MANAGER WOMEN Office Visit [facility] Primary Care Clinic [address] [phone] Omar Carmona MD [address] [place] [address] [phone] 06/15/2025 12:45 PM MANAGER WOMEN Therapy Visit [address] [phone] Jason Alvares MD [address] [place] [address] 634425 Chaya Castillo, OTR [address] [address] 06/19/2025 10:30 AM MANAGER WOMEN Virtual Visit [address] [phone] Omar Carmona MD [address] [place] [address] 395645 Gerson Santos RPH 06/26/2025 11:00 AM MANAGER WOMEN Therapy Visit [address] [phone] Jason Alvares MD [address] [place] [address] 803615 Chaya Castillo, OTR [facility] 150 [place] [address] 07/09/2025 12:45 PM MANAGER WOMEN Therapy Visit [facility] Rehabilitation Services [facility] 150 [place] [address]439914 Jason Alvares MD 420 [facility] 295 [place], [place] 294755 Chaya Castillo OTR [facility] 150 [place] [address] 07/18/2025 3:00 PM MANAGER WOMEN Office Visit [facility] Heart [address] [phone] Adonay Chapman APRN [address] 118015 11/05/2025 12:30 PM CDT Lab [facility] Lab [address] [place] [phone] 11/05/2025 1:45 PM CDT Office Visit [facility] Dermatology Clinic [address] [place] [phone] Gavi Nieto PA-C Dermatology [address] [place] [address] 94277 11/20/2025 10:30 AM CDT Virtual Visit [address] [address] Marquise Hanley MD [address] [place] [address] 945455 documented as of this encounter Goals Goal [...] Score: 9 06/14/20 23 7:18 AM MANAGER WOMEN documented as of this encounter Care Teams Loan Manager Relationship Specialty Start Date End Date Rio Jaquez MD [address] [place] [address] 16456 PCP - General Family Practice 12/02/10 07/13/24 Omar Carmona MD [address] [place] [address] 71612 PCP - General Family Medicine 07/14/24 Barry Kilpatrick MD [address] [place] [address] [id number] [place] [address] Neurology 07/19/14 Michelle Henderson RN Nurse Coordinator Neurology 07/19/14 Rio Jaquez MD [address] [place] [address] 522345 Family Practice 10/15/14 Jemima Jaramillo MD wool merchant 11/20/14 Kelley Chin, TANIA [address] 262695 Nurse Coordinator Cardiology 11/04/15 Sydnee Saleem MD 420 [facility] 508 [place], [place] 220285 Cardiology 11/04/15 Karlene Moya MD 6 [place], [place] 080105 Ophthalmology 06/24/17 Wilbert Quintero, OD 9 [place], [place] 184535 Optometry 06/24/17 Rod Gauthier DPM 9 [place], [place] 016735 MD Locomotive Driver Primary Podiatric Medicine 06/21/18 Jan Mahmood MD [address] [place] [address] 2[address] [place], [place] 546055 Gastroenterology 11/05/20 Brandt Quintana MD [address] [place] [address] 88471 Resident 11/05/20 Jan Mahmood MD 6 [facility] 2A [place] [address] Assigned Gastroenterology Provider 12/01/20 Rio Jaquez MD 909 [facility] 4 [place] [address] Assigned PCP 11/17/20 09/30/24 Dom Eason MD [address] [place] [address] 54952 Internal Medicine 12/02/20 Jayla Plaza, RN Specialty Monitoring Coordinator Hepatology 01/09/21 02/13/24 Jaimie Vernon, RN Specialty Monitoring Coordinator Cardiology 10/28/21 Ruth Riddle DPM, Podiatry/Foot and Ankle Surgery [address] [place] [address] [address] Assigned Musculoskeletal Provider 11/30/21 09/30/23 Marquise Hanley MD [address] [place] [address] 19529 Endocrinology, Diabetes, and Metabolism 03/05/22 Vlad Ramey MD [address] [place] [address] 84988 Cardiovascular Disease 05/07/22 Joesph Crowe MD [address] [place] [address] 86397 Surgery 05/07/22 Michelle Padilla, RN Specialty Monitoring Coordinator Cardiology 07/03/22 Marquise Hanley MD [address] [place] [address] 13573 Assigned Endocrinology Provider 08/15/22 Wagner Oliver MD [address] [place] [address] Critical Care 12/15/22 Laura Epperson NP 717 [facility] 1932 [place] [address] Assigned Nephrology Provider 02/20/23 08/30/24 Thom Taveras MD [address] [place] [address] Assigned Cancer Care Provider 02/06/23 08/20/23 Joesph Crowe MD 9 [place], [place] 575825 MD Surgery 03/17/23 Joesph Crowe MD 9 [place], [place] 791375 Assigned Surgical Provider 04/03/23 09/30/24 Adonay Haq MD 9 [place], [place] 450155 Internal Medicine 06/14/23 Denilson Srinivasan MD [address] [facility] [address] [place] [address] Assigned Heart and Vascular Provider 05/29/23 11/28/24 Jason Alvares MD 420 [facility] 295 [place], [place] 036225 Assigned Neuroscience Provider 05/15/23 11/28/24 Ruth Riddle DPM, Podiatry/Foot and Ankle Surgery [address] [place], [place] 190997 Assigned Musculoskeletal Provider 10/22/23 Jignesh Mathias MD [address] [place] [address] 258315 Gastroenterology 09/25/24 Adonay Haq MD [address] [place] [address] 984095 Assigned PCP 10/01/24 12/28/24 Omar Carmona MD [address] [place] [address] 187995 Assigned PCP 12/29/24 Jason Alvares MD [address] [place] [address] 083435 Assigned Neuroscience Provider 12/29/24 Jignesh Mathias MD [address] [place] [address] 070365 Assigned Surgical Provider 12/29/24 yAad Lopez, PhD LP [address] [place] [address] 818855 Assigned Behavioral Health Provider 02/28/25 Gavi Nieto PA-C [address] [place] [address] 565105 Physician Drafter Patent Dermatology 03/19/25 documented as of this encounter
--- OUTSIDE RECORDS SUMMARY | 2025-06-10 11:40 | XMS_ITS | Encounter Summary ---
Author Organization [facility] Address [address] [place] [address] Care Team Providers Care Senior Mainframe Developer Name Role Phone Rio Jaquez MD Primary Care Provider Barry Kilpatrick MD Unavailable Michelle Henderson RN Unavailable [phone] Rio Jaquez MD Unavailable +[phone] Jemima Jaramillo MD Unavailable Unavai Kelley Bautista RN Unavailable [phone] Sydnee Saleem MD Unavailable [phone] Karlene Moya MD Unavailable +[phone] Wilbert Quintero OD Unavailable +[phone] Rod Gauthier DPM Unavailable +[phone] Nallely Hogue RN Unavailable Unavailable Larisa Vargas RN Unavailable Unavailable Francisco Lott MD Unavailable [phone] Greg Ortega MD Unavailable [phone] Jan Mahmood MD Unavailable +[phone] Brandt Quintana MD Unavailable +[phone] Jan Mahmood MD Unavailable Rio Jaquez [...] MD Unavailable Joesph Crowe MD Unavailable [phone] Joesph Crowe MD Unavailable +[phone] Aodnay Haq MD Unavailable [phone] Denilson Srinivasan MD Unavailable [phone] Jason Alvares MD Unavailable Ruth Riddle DPM, Podiatry /Foot and Ankle Surgery Unavailable Omar Carmona MD Primary Care Provider Jignesh Mathias MD Unavailable Adonay Haq MD Unavailable [phone] Omar Carmona MD Unavailable Jason Alvares MD Unavailable Jignesh Mathias MD Unavailable Ayad Lopez PhD LP Unavailable [phone] Gavi Nieto-C Unavailable [phone] Encounter Details Date Type Department Care Team (Late st Contact Info) Description 01/19/2021 [facility] Clinic [address] [address] Rio Jaquez MD [address] [place] [address] Social History Tobacco Use Types Packs/Day [...] Sex Assigned at Female 09/12/2020 12:05 PM DATA WAREHOUSE ADMINISTRATOR Legal Sex Female 3:26 AM DATA WAREHOUSE ADMINISTRATOR Gender Identity Female 09/12/2020 12:05 PM DATA WAREHOUSE ADMINISTRATOR Sexual Orientation Straight 12/19/2021 10 :44 [...] st Contact Info) Description 06/13/2025 6:00 PM DATA WAREHOUSE ADMINISTRATOR Ancillary Procedure [facility] CT Clinic [address] [phone] Omar Carmona MD [address] [place] [address] 305705 06/14/2025 4:00 PM DATA WAREHOUSE ADMINISTRATOR Office Visit [facility] Care [address] [phone] Omar Carmona MD [address] [place] [address] [id number] 06/15/2025 12:45 PM DATA WAREHOUSE ADMINISTRATOR Therapy Visit [address] [phone] Jason Alvares MD 420 [facility] 295 [place], [place] 6[address]15 Chaya Castillo, OTR [address] [id number] 06/19/2025 10:30 AM DATA WAREHOUSE ADMINISTRATOR Virtual Visit [address] [address] Omar Carmona MD [address] [place] [address] [id number] Gerson Santos RPH 06/26/2025 11:00 AM DATA WAREHOUSE ADMINISTRATOR [facility] 150 [facility] [place] [address] Jason Alvares MD [address] [place] [address] Chaya Castillo, OTR [facility] 150 [place] [address] 07/09/2025 12:45 PM DATA WAREHOUSE ADMINISTRATOR Therapy Visit [facility] 150 [place] [address] Jason Alvares MD [address] [place] [address] Chaya Castillo, OTR [facility] 150 [place] [address] 07/18/2025 3:00 PM DATA WAREHOUSE ADMINISTRATOR Office Visit [facility] Heart [address] [phone] Adonay Chapman APRN [address] [address] 11/05/2025 12:30 PM CDT Lab [facility] Lab [address]st [place] [phone] 11/05/2025 1:45 PM CDT Office Visit [facility] Dermatology Clinic [address]rd [place] [address] Gavi Nieto PA-C Dermatology [address] [place] [address] 11/20/2025 10:30 AM CDT Virtual Visit [address] [phone] Marquise Hanley MD [address] [place] [address] [phone] documented as of this encounter Goals Goal [...] Depression Total Score: 12 021 9:43 AM DATA WAREHOUSE ADMINISTRATOR documented as of this encounter Care Teams Senior Mainframe Developer Relationship Specialty Start Date End Date Rio Jaquez MD [address] [place] [address] PCP - General Family Practice 12/02/10 07/13/24 Omar Carmona MD [address] [place] [address] PCP - General Family Medicine 07/14/24 Barry Kilpatrick MD [address] [place] [address] [id number] [place] [address] Neurology 07/19/14 Michelle Henderson I, TANIA Nurse Coordinator Neurology 07/19/14 Rio Jaquez MD [address] [place] [address] Family Practice 10/15/14 Jemima Jaramillo MD integration architect 11/20/14 Kelley Chin, TANIA [address] 769685 Nurse Coordinator Cardiology 11/04/15 Sydnee Saleem MD [address] [place] [address] 508 [place], [place] 268665 Cardiology 11/04/15 Karlene Moya MD [address] [place] [address] 720785 Ophthalmology 06/24/17 Wilbert Quintero, OD [address] [place] [address] Optometry 06/24/17 Rod Gauthier DPM [address] [place] [address] 046995 Parking Inspector Primary Podiatric Medicine 06/21/18 Nallely Hogue, RN Registered Nurse 02/20/19 11/23/22 Larisa Vargas, TANIA Specialty Hot Wort Settler Cardiology 04/18/19 03/06/22 Francisco Lott MD [address] [place] [address] 945855 Assigned Rheumatology Provider 05/31/20 12/13/21 Greg Ortega MD [address] [place] [address] 694045 Assigned Surgical Provider 06/23/20 12/06/21 Jan Mahmood MD [address] [place], [place] [address]B 2[address] [place] [address] Gastroenterology 11/05/20 Brandt Quintana MD 1414 [place] [address] Resident 11/05/20 Jan Mahmood MD 6 [facility] 2A [place] [address] Assigned Gastroenterology Provider 12/01/20 Rio Jaquez MD 909 [facility] 4 [place] [address] Assigned PCP 11/17/20 09/30/24 Dom Eason MD [address] [place] [address] 353 [place] [address] Internal Medicine 12/02/20 Jayla Plaza, TANIA Specialty Hot Wort Settler Hepatology 01/09/21 02/13/24 Sydnee Saleem MD 6550 [facility] [address] [place] [address] Assigned Heart and Vascular Provider 02/02/21 07/24/22 Phan Coello MD Assigned Neuroscience Provider 02/21/21 11/22/21 Cristian Barragan MD [address] [place] [address] 295[address] Assigned Infectious Disease Provider 02/21/21 03/06/22 Dom Eason MD 717 [facility] 353 [place] [address] Assigned Nephrology Provider 04/20/21 01/02/22 Jaimie Vernon, RN Specialty Hot Wort Settler Cardiology 10/28/21 Ruth Riddle, DPM, Podiatry/Foot and Ankle Surgery 46325 [facility] 300 [place] [address] Assigned Musculoskeletal Provider 11/30/21 09/30/23 Luis Arrington MD [address] [place] [address] Assigned Neuroscience Provider 11/23/21 01/02/22 Jason Alvares MD [address] [place] [address] 295 [place] [address] Assigned Neuroscience Provider 01/03/22 05/15/22 Marquise Hanley MD [address] [place] [address] Endocrinology, Diabetes, and Metabolism 03/05/22 Vlad Ramey MD [address] [place] [address] 28[address] Cardiovascular Disease 05/07/22 Joesph Crowe MD [address] [place] [address] Surgery 05/07/22 Luis Arrington MD [address] [place] [address] 97[address] Assigned Neuroscience Provider 05/16/22 05/14/23 Michelle Padilla, RN Specialty Hot Wort Settler Cardiology 07/03/22 Vlad Ramey MD [address] [place] [address] Assigned Heart and Vascular Provider 07/25/22 05/28/23 Marquise Hanley MD [address] [place] [address] Assigned Endocrinology Provider 08/15/22 Dom Eason MD [address] [address] Assigned Nephrology Provider 11/28/22 02/19/23 Wagner Oliver MD [address] [place] [address] Critical Care 12/15/22 Laura Epperson NP [address] [place] [address] 1932 [place] [address] Assigned Nephrology Provider 02/20/23 08/30/24 Thom Taveras MD [address] [place] [address], R105 [place] [address] Assigned Cancer Care Provider 02/06/23 08/20/23 Joesph Crowe MD [address] [place] [address] 8[address] Surgery 03/17/23 Joesph Crowe MD [address] [place] [address]191 Assigned Surgical Provider 04/03/23 09/30/24 Adonay Haq MD [address] [place] [address] 94[address] Internal Medicine 06/14/23October, Denilson Jackson MD [address] [facility] [address] [place] [address] Assigned Heart and Vascular Provider 05/29/23 11/28/24 Jason Alvares MD [address] [place] [address] Assigned Neuroscience Provider 05/15/23 11/28/24 Ruth Riddle DPM, Podiatry/Foot and Ankle Surgery [address] [place], [place] 606317 Assigned Musculoskeletal Provider 10/22/23 Jignesh Mathias MD [address] [place] [address] Gastroenterology 09/25/24 Adonay Haq MD [address] [place] [address] Assigned PCP 10/01/24 12/28/24 Omar Carmona MD [address] [place] [address] Assigned PCP 12/29/24 Jason Alvares MD [address] 008085 Assigned Neuroscience Provider 12/29/24 Jignesh Mathias MD [address] [place] [address] Assigned Surgical Provider 12/29/24 Ayad Lopez, PhD LP [address] [place] [address] 269995 Assigned Behavioral Health Provider 02/28/25 Gavi Nieto, PA-C [address] [place] [address] 825635 Physician Route Driver Dermatology 03/19/25 documented as of this encounter
--- OUTSIDE RECORDS SUMMARY | 2025-06-10 11:40 | XMS_ITS | Encounter Summary ---
Author Organization [facility] Address [address] [place] [address] Care Team Providers Care Roadway Technician Name Role Phone Rio Jaquez MD Primary Care Provider Barry Kilpatrick MD Unavailable Michelle Henderson I RN Unavailable [phone] Rio Jaquez MD Unavailable [phone] Jemima Jaramillo MD Unavailable Unavai Kelley Bautista RN Unavailable [phone] Sydnee Saleem MD Unavailable [phone] Karlene Moya MD Unavailable Wilbert Quintero OD Unavailable +[phone] Rod Gauthier DPM Unavailable Jan Mahmood MD Unavailable [phone] Brandt Quintana MD Unavailable [phone] Jan Mahmood MD Unavailable [phone] Rio Jaquez MD Unavailable [phone] Dom Eason MD Unavailable Jayla Plaza [...] Unavailable +[phone] Wagner Oliver MD Unavailable [phone] Laura Epperson NP Unavailable [phone] Thom Taevras MD Unavailable [phone] Joesph Crowe MD Unavailable +[phone] Joesph Crowe MD Unavailable +[phone] Adonay Haq MD Unavailable +[phone] Denilson Srinivasan MD Unavailable + [phone] Jason Alvares MD Unavailable Ruth Riddle DPM, Podiatry /Foot and Ankle Surgery Unavailable Omar Carmona MD Primary Care Provider [phone] Jignesh Mathias MD Unavailable Adonay Haq MD Unavailable +[phone] Omar Carmona MD Unavailable +[phone] Jason Alvares MD Unavailable Jignesh Mathias MD Unavailable Ayad Lopez PhD LP Unavailable [phone] Gavi Nieto PA-C Unavailable [phone] Encounter Details Date Type Department Care Team (Late st Contact Info) Description 05/26/2023 [facility] Medical Advice [facility] Heart Clinic [address] [phone] Vlad Ramey MD [address] [place] [address] [phone] Social History Tobacco Use Types Packs/Day Years [...] Answer Date Recorded PHQ-2 Score 2 03/15/2023 [facility] - Occupational [...] a senior care (including now)? No 08/27/2021 Adolescent Education Answer Date Record ed Getting School Help Needed Not on file 05/08 Comments No Sex and Gender Information Value Date Recorded Sex Assigned at Female 09/12/2020 12:05 PM DEVELOPMENT OFFICER Legal Sex Female 3:26 AM DEVELOPMENT OFFICER Gender Identity Female 09/12/2020 12:05 PM DEVELOPMENT OFFICER Sexual Orientation Straight 12/19/2021 10 :44 [...] st Contact Info) Description 06/13/2025 6:00 PM DEVELOPMENT OFFICER Ancillary Procedure [facility] Imaging [facility] CT Clinic [address]st [place] [phone] Omar Carmona MD [address] [place] [address] [phone] 06/14/2025 4:00 PM DEVELOPMENT OFFICER Office Visit [facility] Primary Care Clinic [address] 4th [place] [phone] Omar Carmona MD [address] [place] [address] 906145 06/15/2025 12:45 PM DEVELOPMENT OFFICER Therapy Visit [facility] 150 [place] [phone] Jason Alvares MD [address] [place] [address] 295 [place], [place] 654025 Chaya Castillo OTR [facility] 150 [place] [address] 06/19/2025 10:30 AM DEVELOPMENT OFFICER Virtual Visit [facility] Primary Care Clinic [address] [place] [address] 4th [place] [phone] Omar Carmona MD [address] [place] [address] 478305 Gerson Santos, [facility] 06/26/2025 11:00 AM DEVELOPMENT OFFICER Therapy Visit [facility] 150 [place] [phone] Jason Alvares MD [address] [place] [address] 423735 Chaya Castillo, OTR [address] [address] 07/09/2025 12:45 PM DEVELOPMENT OFFICER Therapy Visit [facility] 150 [place] [phone] Jason Alvares MD [address] [place] [address] 422205 Chaya Castillo, OTR [address] [address] 07/18/2025 3:00 PM DEVELOPMENT OFFICER Office Visit [facility] Heart Clinic [address] [phone] Adonay Chapman APRN [facility] 500 [place], [place] 511435 11/05/2025 12:30 PM CDT Lab [facility] Lab [address] 1st [place] [phone] 11/05/2025 1:45 PM CDT Office Visit [facility] Dermatology Clinic [address] 3rd [place] [phone] Gavi Nieto PA-C Dermatology [address] [place] [address] 11/20/2025 10:30 AM CDT Virtual Visit [address] [place] [address] Marquise Hanley MD [address] [place] [address] documented as of this encounter Goals Goal [...] documented as of this encounter Care Teams Roadway Technician Relationship Specialty Start Date End Date Rio Jaquez MD [address] [place] [address] [address] [place] [address] PCP - General Family Practice 12/02/10 07/13/24 Omar Carmona MD [address] [place] [address] 89673 PCP - General Family Medicine 07/14/24 Barry Kilpatrick MD [address] [place] [address] [id number] [place], [place] 885125 Neurology 07/19/14 Michelle Henderson I, RN Nurse Coordinator Neurology 07/19/14 Rio Jaquez MD 9 [facility] [place] 4 [place], [place] 996335 Family Practice 10/15/14 Jemima Jaramillo MD rivet spinner 11/20/14 Kelley Chin, TANIA [facility] [address] [place] [address] 009525 Nurse Coordinator Cardiology 11/04/15 Sydnee Saleem MD [address] [place] [address] 508 [place] [address] Cardiology 11/04/15 Karlene Moya MD [address] [place] [address] 571965 Ophthalmology 06/24/17 Wilbert Quintero, OD [address] [place] [address] 806915 Optometry 06/24/17 Rod Gauthier DPM [address] [place] [address] 358495 Webbing Inspector Primary Podiatric Medicine 06/21/18 Jan Mahmood MD [address] [place] [address] 2A [place], [place] 336715 Gastroenterology 11/05/20 Brandt Quintana MD [address] [place] [address] Resident 11/05/20 Jan Mahmood MD 516 [facility] 2A [place] [address] Assigned Gastroenterology Provider 12/01/20 Rio Jaquez MD [address] [place] [address] Assigned PCP 11/17/20 09/30/24 Dom Eason MD [address] [place] [address] 353 [place] [address] Internal Medicine 12/02/20 Jayla Plaza, RN Specialty Aerodynamicist Hepatology 01/09/21 02/13/24 Jaimie Vernon, RN Specialty Aerodynamicist Cardiology 10/28/21 Ruth Riddle, DPM, Podiatry/Foot and Ankle Surgery [address] [address] Assigned Musculoskeletal Provider 11/30/21 09/30/23 Marquise Hanley MD [address] [place] [address] Endocrinology, Diabetes, and Metabolism 03/05/22 Vlad Ramey MD [address] [place] [address] Cardiovascular Disease 05/07/22 Joesph Crowe MD [address] [place] [address] 81696 Surgery 05/07/22 Michelle Padilla, RN Specialty Aerodynamicist Cardiology 07/03/22 Vlad Ramey MD [address] [place] [address] Assigned Heart and Vascular Provider 07/25/22 05/28/23 Marquise Hanley MD [address] [place] [address] Assigned Endocrinology Provider 08/15/22 Wagner Oliver MD [address] [place] [address] Critical Care 12/15/22 Laura Epperson NP 717 [facility] [address] [place] [address] Assigned Nephrology Provider 02/20/23 08/30/24 Thom Taveras MD [address], [address] [place] [address] Assigned Cancer Care Provider 02/06/23 08/20/23 Joesph Crowe MD [address] [place] [address]47 Surgery 03/17/23 Joesph Crowe MD [address] [place] [address] 15783 Assigned Surgical Provider 04/03/23 09/30/24 Adonay Haq MD 9 [place] [address] Internal Medicine 06/14/23OctoberDenilson MD [address] [facility] [address] [place] [address] Assigned Heart and Vascular Provider 05/29/23 11/28/24 Jason Alvares MD [address] 924505 Assigned Neuroscience Provider 05/15/23 11/28/24 Ruth Riddle DPM, Podiatry/Foot and Ankle Surgery [address] [place], [place] 426717 Assigned Musculoskeletal Provider 10/22/23 Jignesh Mathias MD [address] [place] [address] Gastroenterology 09/25/24 Adonay Haq MD [address] [place] [address] Assigned PCP 10/01/24 12/28/24 Omar Carmona MD [address] [place] [address] Assigned PCP 12/29/24 Jason Alvares MD [address] [address] Assigned Neuroscience Provider 12/29/24 Jignesh Mathias MD 90 [place] [address] Assigned Surgical Provider 12/29/24 Ayad Lopez, PhD LP [address] [place] [address] Assigned Behavioral Health Provider 02/28/25 Gavi Nieto PA-C [address] [place] [address] Physician Slag Motor Operator Dermatology 03/19/25 documented as of this encounter
--- OUTSIDE RECORDS SUMMARY | 2025-06-10 11:40 | XMS_ITS | Encounter Summary ---
Author Organization [facility] Address [address] [place] [address] 47161 Care Team Providers Care Flight Manager Name Role Phone Rio Jaquez MD Primary Care Provider Barry Kilpatrick MD Unavailable Michelle Henderson RN Unavailable [phone] Rio Jaquez MD Unavailable [phone] Jemima Jaramillo MD Unavailable Unavai Kelley Bautista RN Unavailable [phone] Sydnee Saleem MD Unavailable [phone] Karlene Moya MD Unavailable +[phone] Wilbert Quintero OD Unavailable [phone] Rod Gauthier DPM Unavailable [phone] Nallely Hogue RN Unavailable Unavailable Larisa Vargas RN Unavailable Unavailable Francisco Lott MD Unavailable +[phone] Greg Ortega MD Unavailable +[phone] Jan Mahmood MD Unavailable [phone] Brandt Quintana MD Unavailable +[phone] Jan Mahmood MD Unavailable Rio Jaquez [...] MD Unavailable Joesph Crowe MD Unavailable [phone] Joesph Crowe MD Unavailable +[phone] Adonay Haq MD Unavailable [phone] Denilson Srinivasan MD Unavailable +[phone] Jason Alvares MD Unavailable Ruth RiddleM, Podiatry /Foot and Ankle Surgery Unavailable Omar Carmona MD Primary Care Provider Jignesh Mathias MD Unavailable Adonay Haq MD Unavailable [phone] Omar Carmona MD Unavailable Jason Alvares MD Unavailable Jignesh Mathias MD Unavailable Ayad Lopez PhD LP Unavailable [phone] Gavi Nieto-C Unavailable [phone] Encounter Details Date Type Department Care Team (Late st Contact Info) Description 03/01/2021 [facility] [address] [address] Veronica Herr Social History Tobacco [...] Sex Assigned at Female 09/12/2020 12:05 PM CUSTOMER SOLUTIONS ARCHITECT Legal Sex Female 3:26 AM CUSTOMER SOLUTIONS ARCHITECT Gender Identity Female 09/12/2020 12:05 PM CUSTOMER SOLUTIONS ARCHITECT Sexual Orientation Straight 12/19/2021 10 :44 [...] st Contact Info) Description 06/13/2025 6:00 PM CUSTOMER SOLUTIONS ARCHITECT Ancillary Procedure [facility] Imaging Center CT Clinic [address] [place] [phone] Omar Carmona MD [address] [place] [address] 565925 06/14/2025 4:00 PM CUSTOMER SOLUTIONS ARCHITECT Office Visit [facility] Primary Care Clinic [address] [address] Omar Carmona MD [address] [place] [address] 430675 06/15/2025 12:45 PM CUSTOMER SOLUTIONS ARCHITECT Therapy Visit [facility] [address] [place] [phone] Jason Alvares MD [address] [place] [address] 782895 Chaya Castillo, OTR [facility] 150 [place] [address] 06/19/2025 10:30 AM CUSTOMER SOLUTIONS ARCHITECT Virtual Visit [facility] Primary Care [address] [phone] Omar Carmona MD [address] [place] [address] [phone] Gerson Santos RPH 06/26/2025 11:00 AM CUSTOMER SOLUTIONS ARCHITECT Therapy Visit [facility] 150 [place] [phone] Jason Alvares MD [address] [place] [address] Chaya Castillo OTR [address] [address] 07/09/2025 12:45 PM CUSTOMER SOLUTIONS ARCHITECT Therapy Visit [facility] Rehabilitation Services [address] [phone] Jason Alvares MD [address] [place] [address] Chaya Castillo OTR [address] [address] 07/18/2025 3:00 PM CUSTOMER SOLUTIONS ARCHITECT Office Visit [facility] Heart [address] [phone] Adonay Chapman APRN [address] [phone] 11/05/2025 12:30 PM CDT Lab [facility] Lab [address] [phone] 11/05/2025 1:45 PM CDT Office Visit [facility] Dermatology [address] [place] [phone] Gvai Nieto PA-C Dermatology [address] [place] [address] 11/20/2025 10:30 AM CDT Virtual Visit [address] [phone] Marquise Hanley MD [address] [place] [address] 366865 documented as of this encounter Goals Goal [...] Depression Total Score: 12 021 9:43 AM CUSTOMER SOLUTIONS ARCHITECT documented as of this encounter Care Teams Flight Manager Relationship Specialty Start Date End Date Rio Jaquez MD [address] [place] [address] 80088 PCP - General Family Practice 12/02/10 07/13/24 Omar Carmona MD [address] [place] [address] 54895 PCP - General Family Medicine 07/14/24 Barry Kilpatrick MD [address] [place] [address] [id number] [place] [address] Neurology 07/19/14 Michelle Henderson I, TANIA Nurse Coordinator Neurology 07/19/14 Rio Jaquez MD [address] [place] [address] Family Practice 10/15/14 Jemima Jaramillo MD associate professor of sociology 11/20/14 Kelley Chin, TANIA [facility] [address] [place] [address] 20786 Nurse Coordinator Cardiology 11/04/15 Sydnee Saleem MD 420 [facility] 508 [place] [address] Cardiology 11/04/15 Karlene Moya MD [address] [place] [address] 464745 Ophthalmology 06/24/17 Wilbert Quintero, OD [address] [place] [address] 970315 Optometry 06/24/17 Rod Gauthier DPM [address] [place] [address] 700835 Test Desk Operator Primary Podiatric Medicine 06/21/18 Nallely Hogue, TANIA Registered Nurse 02/20/19 11/23/22 Larisa Vargas, TANIA Specialty Global Clinical Leader Cardiology 04/18/19 03/06/22 Francisco Lott MD [address] [place] [address] 88 [place], [place] 858255 Assigned Rheumatology Provider 05/31/20 12/13/21 Greg Ortega MD [address] [place] [address] 898015 Assigned Surgical Provider 06/23/20 12/06/21 Jan Mahmood MD [address] [place] [address] 2[address] [place], [place] 109965 Gastroenterology 11/05/20 Brandt Quintana MD 1414 [place] [address] Resident 11/05/20 Jan Mahmood MD [address] [facility] [address] 2A [place] [address] Assigned Gastroenterology Provider 12/01/20 iRo Jaquez MD [address] [facility] [address] 4 [place], [place] 668395 Assigned PCP 11/17/20 09/30/24 Dom Eason MD [address] [place] [address] 353 [place], [place] 147854 Internal Medicine 12/02/20 Jayla Plaza, RN Specialty Global Clinical Leader Hepatology 01/09/21 02/13/24 Sydnee Saleem MD [address] [place] [address] [phone] Assigned Heart and Vascular Provider 02/02/21 07/24/22 Phan Coello MD Assigned Neuroscience Provider 02/21/21 11/22/21 Cristian Barragan MD 29[address] [place] [address] Assigned Infectious Disease Provider 02/21/21 03/06/22 Dom Eason MD [address] [place] [address] 353 [place] [address] Assigned Nephrology Provider 04/20/21 01/02/22 Jaimie [place], RN Specialty Global Clinical Leader Cardiology 10/28/21 Ruth Riddle DPM, Podiatry/Foot and Ankle Surgery [address] [address] Assigned Musculoskeletal Provider 11/30/21 09/30/23 Luis Arrington MD [address] [place] [address] 9[address] Assigned Neuroscience Provider 11/23/21 01/02/22 Jason Alvares MD [address] [place] [address]75 Assigned Neuroscience Provider 01/03/22 05/15/22 Marquise Hanley MD [address] [place] [address] 6[address] Endocrinology, Diabetes, and Metabolism 03/05/22 Vlad Ramey MD [address] [place] [address] 97885 Cardiovascular Disease 05/07/22 Joesph Crowe MD [address] [place] [address] 79920 Surgery 05/07/22 Luis Arrington MD [address] [place] [address] 85673 Assigned Neuroscience Provider 05/16/22 05/14/23 Michelle Padilla RN Specialty Global Clinical Leader Cardiology 07/03/22 Vlad Ramey MD 909 [place] [address] Assigned Heart and Vascular Provider 07/25/22 05/28/23 Marquise Hanley MD 9 [place] [address] Assigned Endocrinology Provider 08/15/22 Dom Eason MD 717 [facility] 353 [place] [address] Assigned Nephrology Provider 11/28/22 02/19/23 Wagner Oliver MD 6401 [facility] [place] [address] Critical Care 12/15/22 Laura Epperson, FLASH WELDER 7 [facility] [address] [place] [address] Assigned Nephrology Provider 02/20/23 08/30/24 Thom Taveras MD [address] [place] [address] Assigned Cancer Care Provider 02/06/23 08/20/23 Joesph Crowe MD [address] [place] [address]03 Surgery 03/17/23 Joesph Crowe MD [address] [place] [address] 66962 Assigned Surgical Provider 04/03/23 09/30/24 Adonay Haq MD [address] [place] [address] Internal Medicine 06/14/23OctoberDenilson MD [address] [place], [place] 176445 Assigned Heart and Vascular Provider 05/29/23 11/28/24 Jason Alvares MD [address] 207355 Assigned Neuroscience Provider 05/15/23 11/28/24 Ruth Riddle DPM, Podiatry/Foot and Ankle Surgery [address] [place], [place] 932787 Assigned Musculoskeletal Provider 10/22/23 Jignesh Mathias MD [address] [place] [address] 276475 Gastroenterology 09/25/24 Adonay Haq MD [address] [place] [address] 49[address] Assigned PCP 10/01/24 12/28/24 Omar Carmona MD [address] [place] [address] 497255 Assigned PCP 12/29/24 Jason Alvares MD [address] 777335 Assigned Neuroscience Provider 12/29/24 Jignesh Mathias MD [address] [place] [address]40 Assigned Surgical Provider 12/29/24 Ayad Lopez, PhD LP [address] [place] [address] 12508 Assigned Behavioral Health Provider 02/28/25 Gavi Nieto PANavinC [address] [place] [address] 33692 Physician Plant Utility Person Dermatology 03/19/25 documented as of this encounter
--- OUTSIDE RECORDS SUMMARY | 2025-06-10 11:40 | XMS_ITS | Encounter Summary ---
Author Organization [facility] Address [address] [place] [address] Care Team Providers Care Tax Appraiser Name Role Phone Rio Jaquez MD Primary Care Provider Barry Kilpatrick MD Unavailable Michelle Henderson I RN Unavailable [phone] Rio Jaquez MD Unavailable [phone] Jemima Jaramillo MD Unavailable Unavai Kelley Bautista RN Unavailable [phone] Sydnee Saleem MD Unavailable [phone] Karlene Moya MD Unavailable [phone] Wilbert Quintero OD Unavailable [phone] Rod Gauthier DPM Unavailable Jan Mahmood MD Unavailable [phone] Brandt Quintana MD Unavailable Jan Mahmood MD Unavailable [phone] Rio Jaquez MD Unavailable [phone] Dom Eason MD Unavailable Jayla Plaza [...] Unavailable +[phone] Wagner Oliver MD Unavailable [phone] Laura Epperson NP Unavailable [phone] Thom Taveras MD Unavailable [phone] Joesph Crowe MD Unavailable +[phone] Joesph Crowe MD Unavailable +[phone] Adonay Haq MD Unavailable +[phone] Denilson Srinivasan MD Unavailable + [phone] Jason Alvares MD Unavailable Ruth Riddle DPM, Podiatry /Foot and Ankle Surgery Unavailable Omar Carmona MD Primary Care Provider [phone] Jignesh Mathias MD Unavailable Adonay Haq MD Unavailable +[phone] Omar Carmona MD Unavailable +[phone] Jason Alvares MD Unavailable Jignesh Mathias MD Unavailable Ayad Lopez PhD LP Unavailable [phone] Gavi Nieto PA-C Unavailable [phone] Encounter Details Date Type Department Care Team (Late st Contact Info) Description 05/26/2023 MyC Medical Advice [facility] Hepatology Clinic [address] [address] Jan Mahmood MD 516 [facility] [address] [place], [place] [phone] Social History Tobacco Use Types Packs/Day Years [...] Answer Date Recorded PHQ-2 Score 2 03/15/2023 [facility] of Occupat ional [...] Sex Assigned at Female 09/12/2020 12:05 PM GROUNDWATER CONSULTANT Legal Sex Female 3:26 AM GROUNDWATER CONSULTANT Gender Identity Female 09/12/2020 12:05 PM GROUNDWATER CONSULTANT Sexual Orientation Straight 12/19/2021 10 :44 [...] st Contact Info) Description 06/13/2025 6:00 PM GROUNDWATER CONSULTANT Ancillary Procedure [facility] Imaging Center CT Clinic [address] [place] [phone] Omar Carmona MD [address] [place] [address] 525665 06/14/2025 4:00 PM GROUNDWATER CONSULTANT Office Visit [facility] Primary Care Clinic [address] [place] [phone] Omar Carmona MD [address] [place] [address] 137725 06/15/2025 12:45 PM GROUNDWATER CONSULTANT Therapy Visit [facility] Rehabilitation Services [address] [phone] Jason Alvares MD [address] [place] [address] 379435 Chaya Castillo, [facility] 150 [place] [address] 06/19/2025 10:30 AM GROUNDWATER CONSULTANT Virtual Visit [facility] Primary Care Clinic [address] [place] [address] 4[address] [place] [phone] Omar Carmona MD [address] [place] [address] 622885 Gerson Santos, [facility] 06/26/2025 11:00 AM GROUNDWATER CONSULTANT Therapy Visit [facility] 150 [place] [phone] Jason Alvares MD [address] [place] [address] 444315 Chaya Castillo, [facility] 150 [place] [address] 07/09/2025 12:45 PM GROUNDWATER CONSULTANT Therapy Visit [facility] 150 [place] [phone] Jason Alvares MD [address] [place] [address] 032705 Chaya Castillo, OTR [facility] 150 [place] [address] 07/18/2025 3:00 PM GROUNDWATER CONSULTANT Office Visit [facility] Heart Clinic [address] [phone] Adonay Chapman APRN [facility] 500 [place], [place] 318125 11/05/2025 12:30 PM CDT Lab [facility] Lab [address] [phone] 11/05/2025 1:45 PM CDT Office Visit [facility] Dermatology Clinic [place] 909 [facility] 3rd [place] [phone] Gavi Nieto PA-C Dermatology [address] [place] [address]47 11/20/2025 10:30 AM CDT Virtual Visit [address] [address] Marquise Hanley MD [address] [place] [address] 28[address] documented as of this encounter Goals Goal [...] documented as of this encounter Care Teams Tax Appraiser Relationship Specialty Start Date End Date Rio Jaquez MD [address] [place] [address] [address] 4 [place] [address] PCP - General Family Practice 12/02/10 07/13/24 Omar Carmona MD [address] [place] [address] PCP - General Family Medicine 07/14/24 Barry Kilpatrick MD [address] [place] [address] [id number] [place], [place] 203835 Neurology 07/19/14 Michelle Henderson I, RN Nurse Coordinator Neurology 07/19/14 Rio Jaquez MD [address] [place] [address] 4 [place], [place] 0[address]95 Family Practice 10/15/14 Jemima Jaramillo MD deputy controller 11/20/14 Kelley Chin, TANIA [address] 583045 Nurse Coordinator Cardiology 11/04/15 Sydnee Saleem MD [address] [place] [address] 508 [place], [place] 822555 Cardiology 11/04/15 Karlene Moya MD [address] [place] [address] 195565 Ophthalmology 06/24/17 Wilbert Quintero, OD [address] [place] [address] 461615 Optometry 06/24/17 Rod Gauthier DPM [address] [place] [address] 306005 Web Application Developer Primary Podiatric Medicine 06/21/18 Jan Mahmood MD [address] [place] [address] 2A [place], [place] 536565 Gastroenterology 11/05/20 Brandt Quintana MD 1414 [place] [address] Resident 11/05/20 Jan Mahmood MD [facility] 2A [place] [address] Assigned Gastroenterology Provider 12/01/20 Rio Jaquez MD 909 [facility] 4 [place] [address] Assigned PCP 11/17/20 09/30/24 Dom Eason MD 717 [facility] 353 [place], [place] 685564 Internal Medicine 12/02/20 Jayla Plaza, RN Specialty Packager Hand Hepatology 01/09/21 02/13/24 Jaimie [place], RN Specialty Packager Hand Cardiology 10/28/21 Ruth Riddle, DPM, Podiatry/Foot and Ankle Surgery [address] [address] Assigned Musculoskeletal Provider 11/30/21 09/30/23 Marquise Hanley MD [address] [place] [address] 7[address] Endocrinology, Diabetes, and Metabolism 03/05/22 Vlad Ramey MD [address] [place] [address] 63347 Cardiovascular Disease 05/07/22 Joesph Crowe MD [address] [place] [address] 06682 Surgery 05/07/22 Michelle Padilla, RN Specialty Packager Hand Cardiology 07/03/22 Vlad Ramey MD [address] [place] [address] 90791 Assigned Heart and Vascular Provider 07/25/22 05/28/23 Marquise Hanley MD [address] [place] [address] 96976 Assigned Endocrinology Provider 08/15/22 Wagner Oliver MD 6401 [facility] [address] Critical Care 12/15/22 Laura Epperson NP [address] [place] [address] 1932 [place] [address] Assigned Nephrology Provider 02/20/23 08/30/24 Thom Taveras MD [facility] [address], 05 [place] [address] Assigned Cancer Care Provider 02/06/23 08/20/23 Joesph Crowe MD [address] [place] [address] 87400 Surgery 03/17/23 Joesph Crowe MD [address] [place] [address] 00438 Assigned Surgical Provider 04/03/23 09/30/24 Adonay Haq MD 9 [place] [address] Internal Medicine 06/14/23OctoberDenilson MD [address] [place], [place] 224495 Assigned Heart and Vascular Provider 05/29/23 11/28/24 Jason Alvares MD [address] 280195 Assigned Neuroscience Provider 05/15/23 11/28/24 Ruth Riddle DPM, Podiatry/Foot and Ankle Surgery [address] [place], [place] 309417 Assigned Musculoskeletal Provider 10/22/23 Jignesh Mathias MD [address] [place] [address] 833925 Gastroenterology 09/25/24 Adonay Haq MD [address] [place] [address] 35266 Assigned PCP 10/01/24 12/28/24 Omar Carmona MD [address] [place] [address] 420685 Assigned PCP 12/29/24 Jason Alvares MD [address] [address] Assigned Neuroscience Provider 12/29/24 Jignesh Mathias MD [address] [place] [address] 99330 Assigned Surgical Provider 12/29/24 Ayad Lopez, PhD LP [address] [place] [address] 04955 Assigned Behavioral Health Provider 02/28/25 Gavi Nieto PANavinC [address] [place] [address] 598305 Physician Toll Gate Keeper Dermatology 03/19/25 documented as of this encounter
--- OUTSIDE RECORDS SUMMARY | 2025-06-10 11:40 | XMS_ITS | Encounter Summary ---
Author Organization [place] Address [address] [place] [address] 21632 Care Team Providers Care Manager Of International Name Role Phone Rio Jaquez MD Primary Care Provider Barry Kilpatrick MD Unavailable Michelle Henderson RN Unavailable [phone] Rio Jaquez MD Unavailable [phone] Jemima Jaramillo MD Unavailable Unavai Kelley Bautista RN Unavailable [phone] Sydnee Saleem MD Unavailable [phone] Karlene Moya MD Unavailable [phone] Wilbert Quintero OD Unavailable [phone] Rod Gauthier DPM Unavailable [phone] Nallely Hogue RN Unavailable Unavailable Larisa Vargas RN Unavailable Unavailable Francisco Lott MD Unavailable [phone] Greg Ortega MD Unavailable [phone] Jan Mahmood MD Unavailable [phone] Brandt Quintana MD Unavailable [phone] Jan Mahmood MD Unavailable Rio Jaquez [...] MD Unavailable Joesph Crowe MD Unavailable [phone] Joesph Crowe MD Unavailable [phone] Adonay Haq MD Unavailable [phone] Denilson Srinivasan MD Unavailable Jason Alvares MD Unavailable Ruth Riddle DPM, Podiatry /Foot and Ankle Surgery Unavailable Omar Carmona MD Primary Care Provider Jignesh Mathias MD Unavailable Adonay Haq MD Unavailable [phone] Omar Carmona MD Unavailable Jason Alvares MD Unavailable Jignesh Mathias MD Unavailable Ayad Lopez PhD LP Unavailable [phone] Gavi Nieto-C Unavailable [phone] Encounter Details Date Type Department Care Team (Late st Contact Info) Description 01/19/2021 [facility] Medical Advice [facility] Hepatology Clinic [address] [address] Jan Mahmood MD [address] [place] [address] 18454 Social History Tobacco Use Types Packs/Day Years [...] Sex Assigned at Female 09/12/2020 12:05 PM CITIZENSHIP INSTRUCTOR Legal Sex Female 3:26 AM CITIZENSHIP INSTRUCTOR Gender Identity Female 09/12/2020 12:05 PM CITIZENSHIP INSTRUCTOR Sexual Orientation Straight 12/19/2021 10 :44 [...] st Contact Info) Description 06/13/2025 6:00 PM CITIZENSHIP INSTRUCTOR Ancillary Procedure [facility] Center CT Clinic [address] [phone] Omar Carmona MD [address] [place] [address] 855895 06/14/2025 4:00 PM CITIZENSHIP INSTRUCTOR Office Visit [facility] Care [address] [phone] Omar Carmona MD [address] [place] [address] [phone] 06/15/2025 12:45 PM CITIZENSHIP INSTRUCTOR Therapy Visit [address] [phone] Jason Alvares MD 420 [facility] 295 [place], [place] 7[address] Chaya Castillo, OTR [facility] 150 [place], [place] 593807 06/19/2025 10:30 AM CITIZENSHIP INSTRUCTOR Virtual Visit [facility] Care [address] [address] Omar Carmona MD [address] [place] [address] 255705 Gerson Santos RPH 06/26/2025 11:00 AM CITIZENSHIP INSTRUCTOR Therapy Visit [place] [address] [place] [address] Jason Alvares MD [address] [place] [address] Chaya Castillo, OTR [facility] 150 [place] [address] 07/09/2025 12:45 PM CITIZENSHIP INSTRUCTOR Therapy Visit [facility] [address] [place] [address] Jason Alvares MD [address] [place] [address] Chaya Castillo, OTR [facility] 150 [place] [address] 07/18/2025 3:00 PM CITIZENSHIP INSTRUCTOR Office Visit [facility] Heart [address] [phone] Adonay Chapman APRN [address] [address] 11/05/2025 12:30 PM CDT Lab [facility] Lab [address] 1st [place] [phone] 11/05/2025 1:45 PM CDT Office Visit [facility] Dermatology Clinic [address] [place] [phone] Gavi Nieto PA-C Dermatology [address] [place] [address] 11/20/2025 10:30 AM CDT Virtual Visit [address] [address] Marquise Hanley MD [address] [place] [address] [phone] documented as of this encounter Goals Goal [...] Depression Total Score: 12 021 9:43 AM CITIZENSHIP INSTRUCTOR documented as of this encounter Care Teams Manager Of International Relationship Specialty Start Date End Date Rio Jaquez MD [address] [place] [address]9860 PCP - General Family Practice 12/02/10 07/13/24 Omar Carmona MD [address] [place] [address] 75139 PCP - General Family Medicine 07/14/24 Barry Kilpatrick MD [address] [place] [address] [id number] [place] [address] Neurology 07/19/14 Michelle Henderson I, TANIA Nurse Coordinator Neurology 07/19/14 Rio Jaquez MD [address] [place] [address] 49076 Family Practice 10/15/14 Jemima Jaramillo MD real estate site analyst 11/20/14 Kelley Chin, TANIA [address] [phone] Nurse Coordinator Cardiology 11/04/15 Sydnee Saleem MD [address] [place], [place] [address] [place], [place] 722215 Cardiology 11/04/15 Karlene Moya MD [address] [place] [address] 929025 Ophthalmology 06/24/17 Wilbert Quintero, OD [address] [place] [address]455 Optometry 06/24/17 Rod Gauthier DPM [address] [place] [address] 443205 Wiper Blender Primary Podiatric Medicine 06/21/18 Nallely Hogue, RN Registered Nurse 02/20/19 11/23/22 Larisa Vargas, TANIA Specialty Occupational Medicine Physician Cardiology 04/18/19 03/06/22 Francisco Lott MD [address] [place] [address] 807615 Assigned Rheumatology Provider 05/31/20 12/13/21 Greg Ortega MD [address] [place] [address] 962485 Assigned Surgical Provider 06/23/20 12/06/21 Jan Mahmood MD [address] [place] [address] 2[address] [place] [address] Gastroenterology 11/05/20 Brandt Quintana MD [facility]4 [place] [address] Resident 11/05/20 Jan Mahmood MD 516 [facility] 2A [place] [address] Assigned Gastroenterology Provider 12/01/20 Rio Jaquez MD [address] [place] [address] 4 [place] [address] Assigned PCP 11/17/20 09/30/24 Dom Eason MD [address] [place] [address] 353 [place] [address] Internal Medicine 12/02/20 Jayla Plaza, RN Specialty Occupational Medicine Physician Hepatology 01/09/21 02/13/24 Sydnee Saleem MD [address] [facility] [address] [place] [address] Assigned Heart and Vascular Provider 02/02/21 07/24/22 Phan Coello MD Assigned Neuroscience Provider 02/21/21 11/22/21 Cristian Barragan MD [address] [place] [address] 9[address] Assigned Infectious Disease Provider 02/21/21 03/06/22 Dom Eason MD 7 [facility] 353 [place] [address] Assigned Nephrology Provider 04/20/21 01/02/22 Jaimie Vernon, RN Specialty Occupational Medicine Physician Cardiology 10/28/21 Ruth Riddle, DPM, Podiatry/Foot and Ankle Surgery [address] [facility] 300 [place] [address] Assigned Musculoskeletal Provider 11/30/21 09/30/23 Luis Arrington MD [address] [place] [address] 33908 Assigned Neuroscience Provider 11/23/21 01/02/22 Jason Alvares MD [address] [place] [address] 295 [place] [address] Assigned Neuroscience Provider 01/03/22 05/15/22 Marquise Hanley MD [address] [place] [address] 41426 Endocrinology, Diabetes, and Metabolism 03/05/22 Vlad Ramey MD [address] [place] [address] 49639 Cardiovascular Disease 05/07/22 Joesph Crowe MD [address] [place] [address] 63360 Surgery 05/07/22 Luis Arrington MD [address] [place] [address] 44092 Assigned Neuroscience Provider 05/16/22 05/14/23 Michelle Padilla, RN Specialty Occupational Medicine Physician Cardiology 07/03/22 Vlad Ramey MD [address] [place] [address] 22256 Assigned Heart and Vascular Provider 07/25/22 05/28/23 Marquise Hanley MD [address] [place] [address] 72716 Assigned Endocrinology Provider 08/15/22 Dom Eason MD [address] [address] Assigned Nephrology Provider 11/28/22 02/19/23 Wagner Oliver MD 6401 [place] [address] Critical Care 12/15/22 Laura Epperson NP [address] [place] [address] 1932 [place] [address] Assigned Nephrology Provider 02/20/23 08/30/24 Thom Taveras MD [address] [place] [address], R105 [place] [address] Assigned Cancer Care Provider 02/06/23 08/20/23 Joesph Crowe MD [address] [place] [address] 52708 Surgery 03/17/23 Joesph Crowe MD [address] [place] [address] 76104 Assigned Surgical Provider 04/03/23 09/30/24 Adonay Haq MD [address] [place] [address] 95249 Internal Medicine 06/14/23OctoberDenilson MD [address] [facility] [address] [place] [address] Assigned Heart and Vascular Provider 05/29/23 11/28/24 Jason Alvares MD [address] [place] [address] 25708 Assigned Neuroscience Provider 05/15/23 11/28/24 Ruth Riddle DPM, Podiatry/Foot and Ankle Surgery [address] [place] [address] Assigned Musculoskeletal Provider 10/22/23 Jignesh Mathias MD [address] [place] [address] 67385 Gastroenterology 09/25/24 Adonay Haq MD [address] [place] [address] Assigned PCP 10/01/24 12/28/24 Omar Carmona MD [address] [place] [address] 29159 Assigned PCP 12/29/24 Jason Alvares MD [address] [place] [address] 145655 Assigned Neuroscience Provider 12/29/24 Jignesh Mathias MD [address] [place] [address] 66184 Assigned Surgical Provider 12/29/24 Ayad Lopez, PhD LP [address] [place] [address] [phone] Assigned Behavioral Health Provider 02/28/25 Gavi Nieto, PANavinC 500 [place], [place] 541445 Physician Controls Operator Molded Goods Dermatology 03/19/25 documented as of this encounter
--- OUTSIDE RECORDS SUMMARY | 2025-06-10 11:40 | XMS_ITS | Encounter Summary ---
Author Organization [place] Address [address] [place] [address] 31283 Care Team Providers Care Leather Colorer Name Role Phone Rio Jaquez MD Primary Care Provider Barry Kilpatrick MD Unavailable Michelle Henderson RN Unavailable [phone] Rio Jaquez MD Unavailable [phone] Jemima Jaramillo MD Unavailable Unavai Kelley Bautista RN Unavailable [phone] Sydnee Saleem MD Unavailable [phone] Karlene Moya MD Unavailable [phone] Wilbert Quintero OD Unavailable [phone] Rod Gauthier DPM Unavailable [phone] Nallely Hogue RN Unavailable Unavailable Larisa Vargas RN Unavailable Unavailable Francisco Lott MD Unavailable [phone] Greg Ortega MD Unavailable [phone] Jan Mahmood MD Unavailable [phone] Brandt Quintana MD Unavailable [phone] Jan Mahmood MD Unavailable Rio Jaquez [...] MD Unavailable Joesph Crowe MD Unavailable [phone] Luis Arrington MD Unavailable Michelle Padilla RN Unavailable Unavaila ble Vlad Ramey MD Unavailable Marquise Hanely MD Unavailable [phone] Dom Eason MD Unavailable Wagner Oliver MD Unavailable Laura Epperson NP Unavailable [phone] Thom Taveras MD Unavailable Joesph Crowe MD Unavailable [phone] Joesph Crowe MD Unavailable [phone] Adonay Haq MD Unavailable [phone] Denilson Srinivasan MD Unavailable [phone] Jason Alvares MD Unavailable Ruth RiddleM, Podiatry /Foot and Ankle Surgery Unavailable Omar Carmona MD Primary Care Provider Jignesh Mathias MD Unavailable Adonay Haq MD Unavailable [phone] Omar Carmona MD Unavailable Jason Alvares MD Unavailable Jignesh Mathias MD Unavailable Ayad Lopez PhD LP Unavailable [phone] Gavi Nieto-C Unavailable [phone] Encounter Details Date Type Department Care Team (Latest Contact Info) Description 02/25/2021 [facility] [place] [facility] Primary Care Clinic [address] [place] [address] Rio Jaquez MD [address] [place] [address] Subdural hematoma (H) (Primary Dx); Diffuse [...] Sex Assigned at Female 09/12/2020 12:05 PM FINANCIAL AID ADVISOR Legal Sex Female 3:26 AM FINANCIAL AID ADVISOR Gender Identity Female 09/12/2020 12:05 PM FINANCIAL AID ADVISOR Sexual Orientation Straight 12/19/2021 10 :44 [...] st Contact Info) Description 06/13/2025 6:00 PM FINANCIAL AID ADVISOR Ancillary Procedure [facility] Imaging Center CT Clinic [address] [phone] Omar Carmona MD [address] [place] [address] [phone] 06/14/2025 4:00 PM FINANCIAL AID ADVISOR Office Visit [facility] Primary Care [address] [phone] Omar Carmona MD [address] [place] [address] 197135 06/15/2025 12:45 PM FINANCIAL AID ADVISOR Therapy Visit [facility] Rehabilitation Services [address] [phone] Jason Alvares MD 420 [facility] 295 [place], [place] [phone] Chaya Castillo, OTR [address] [address] 06/19/2025 10:30 AM FINANCIAL AID ADVISOR Virtual Visit [facility] Primary Care [address] [phone] Omar Carmona MD [address] [place] [address] 415395 Gerson Santos RPH 06/26/2025 11:00 AM FINANCIAL AID ADVISOR Therapy [facility] 150 [place] [phone] Jason Alvares MD [address] [place] [address] Chaya Castillo OTR [facility] 150 [place] [address] 07/09/2025 12:45 PM FINANCIAL AID ADVISOR Therapy Visit [facility] 150 [place] [phone] Jason Alvares MD [address] [place] [address] Chaya Castillo OTR [address] [address] 07/18/2025 3:00 PM FINANCIAL AID ADVISOR Office Visit [facility] Heart [address] [phone] Adonay Chapman APRN [address] [address] 11/05/2025 12:30 PM CDT Lab [facility] Lab [address] [phone] 11/05/2025 1:45 PM CDT Office Visit [facility] Dermatology Clinic [address] [address] Gavi Nieto PA-C Dermatology [address] [place] [address] 11/20/2025 10:30 AM CDT Virtual Visit [address] [place] [address] Marquise Hanley MD [address] [place] [address] 022555 documented as of this encounter Goals Goal [...] Depression Total Score: 12 021 9:43 AM FINANCIAL AID ADVISOR documented as of this encounter Care Teams Leather Colorer Relationship Specialty Start Date End Date Rio Jaquez MD [address] [place] [address] 68966 PCP - General Family Practice 12/02/10 07/13/24 Omar Carmona MD [address] [place] [address] 71619 PCP - General Family Medicine 07/14/24 Barry Kilpatrick MD [address] [place] [address] [id number] [place] [address] Neurology 07/19/14 Michelle Henderson RN Nurse Coordinator Neurology 07/19/14 Rio Jaquez MD 909 [facility] 4 [place], [place] 844425 Family Practice 10/15/14 Jemima Jaramillo MD client experience consultant 11/20/14 Kelley Chin, TANIA [facility] [address] [place] [address] 555185 Nurse Coordinator Cardiology 11/04/15 Sydnee Saleem MD [address] [place] [address] 508 [place], [place] 141565 Cardiology 11/04/15 Karlene Moya MD [address] [place] [address] 424915 Ophthalmology 06/24/17 Wilbert Quinetro, OD [address] [place] [address] 103235 Optometry 06/24/17 Rod Gauthier DPM [address] [place] [address] [phone] Nursing Coordinator Primary Podiatric Medicine 06/21/18 Nallely Hogue, RN Registered Nurse 02/20/19 11/23/22 Larisa Vargas, TANIA Specialty Director Of Health Care Marketing Cardiology 04/18/19 03/06/22 Francisco Lott MD [address] [place] [address] 117415 Assigned Rheumatology Provider 05/31/20 12/13/21 Greg Ortega MD [address] [place] [address] 004525 Assigned Surgical Provider 06/23/20 12/06/21 Jan Mahmood MD [address] [facility] 2A [place] [address] Gastroenterology 11/05/20 Brandt Quintana MD [address] [place] [address] Resident 11/05/20 Jan Mahmood MD 6 [facility] 2[address] [place] [address] Assigned Gastroenterology Provider 12/01/20 Rio Jaquez MD 9 [facility] 4 [place] [address] Assigned PCP 11/17/20 09/30/24 Dom Eason MD 7 [facility] 353 [place] [address] Internal Medicine 12/02/20 Jayla Plaza, RN Specialty Director Of Health Care Marketing Hepatology 01/09/21 02/13/24 Sydnee Saleem MD 6550 [facility] [address] [place] [address] [phone] Assigned Heart and Vascular Provider 02/02/21 07/24/22 Phan Coello MD Assigned Neuroscience Provider 02/21/21 11/22/21 Cristian Barragan MD [address] [place] [address] 11257 Assigned Infectious Disease Provider 02/21/21 03/06/22 Dom Eason MD 717 [facility] 353 [place] [address] Assigned Nephrology Provider 04/20/21 01/02/22 Jaimie Vernon, TANIA Specialty Director Of Health Care Marketing Cardiology 10/28/21 Ruth Riddle DPM, Podiatry/Foot and Ankle Surgery [address] [facility] 300 [place] [address] Assigned Musculoskeletal Provider 11/30/21 09/30/23 Luis Arrington MD [address] [place] [address] 36774 Assigned Neuroscience Provider 11/23/21 01/02/22 Jason Alvares MD 420 [facility] 295 [place], [place] 524685 Assigned Neuroscience Provider 01/03/22 05/15/22 Marquise Hanley MD [address] [place] [address] 80762 Endocrinology, Diabetes, and Metabolism 03/05/22 Vlad Ramey MD [address] [place] [address] 51124 Cardiovascular Disease 05/07/22 Joesph Crowe MD [address] [place] [address] 18979 Surgery 05/07/22 Luis Arrington MD [address] [place] [address] 17383 Assigned Neuroscience Provider 05/16/22 05/14/23 Michelle Padilla, RN Specialty Director Of Health Care Marketing Cardiology 07/03/22 Vlad Ramey MD [address] [place] [address] 812795 Assigned Heart and Vascular Provider 07/25/22 05/28/23 Marquise Hanley MD [address] [place] [address] 689455 Assigned Endocrinology Provider 08/15/22 Dom Eason MD 717 [facility] [address] [place], [place] 915394 Assigned Nephrology Provider 11/28/22 02/19/23 Wagner Oliver MD 6401 [facility] [address] Critical Care 12/15/22 Laura Epperson NP 7 [facility] [address] [place] [address] Assigned Nephrology Provider 02/20/23 08/30/24 Thom Taveras MD [facility] [address], [address] [place], [place] 466234 Assigned Cancer Care Provider 02/06/23 08/20/23 Joesph Crowe MD [address] [place] [address] 045525 Surgery 03/17/23 Joesph Crowe MD [address] [place] [address] 91498 Assigned Surgical Provider 04/03/23 09/30/24 Adonay Haq MD [address] [place] [address] 98132 Internal Medicine 06/14/23October, Denilson Jackson MD 6405 [facility] [place] 1437200 [place] [address] Assigned Heart and Vascular Provider 05/29/23 11/28/24 Jason Alvares MD [address] [place] [address]99 Assigned Neuroscience Provider 05/15/23 11/28/24 Ruth Riddle DPM, Podiatry/Foot and Ankle Surgery [address] [facility] [address] [place] [address] Assigned Musculoskeletal Provider 10/22/23 Jignesh Mathias MD [address] [place] [address] 96583 Gastroenterology 09/25/24 Adonay Haq MD [address] [place] [address] 99316 Assigned PCP 10/01/24 12/28/24 Omar Carmona MD [address] [place] [address] 39034 Assigned PCP 12/29/24 Jason Alvares MD [address] [address] Assigned Neuroscience Provider 12/29/24 Jignesh Mathias MD [address] [place] [address] 55455 Assigned Surgical Provider 12/29/24 Ayad Lopez, PhD LP [address] [place] [address] Assigned Behavioral Health Provider 02/28/25 Gavi Nieto, PA-C [address] [place] [address] Physician Repairer And Checker Dermatology 03/19/25 documented as of this encounter
--- OUTSIDE RECORDS SUMMARY | 2025-06-10 11:40 | XMS_ITS | Encounter Summary ---
Author Organization [facility] Address [address] [place] [address] 86065 Care Team Providers Care Riding Instructor Name Role Phone Rio Jaquez MD Primary Care Provider Barry Kilpatrick MD Unavailable Michelle Henderson RN Unavailable [phone] Rio Jaquez MD Unavailable [phone] Jemima Jaramillo MD Unavailable Unavai Kelley Bautista RN Unavailable [phone] Sydnee Saleem MD Unavailable [phone] Karlene Moya MD Unavailable [phone] Wilbert Quintero OD Unavailable [phone] Rod Gauthier DPM Unavailable [phone] Nallely Hogue RN Unavailable Unavailable Larisa Vargas RN Unavailable Unavailable Francisco Lott MD Unavailable [phone] Greg Ortega MD Unavailable [phone] Jan Mahmood MD Unavailable [phone] Brandt Quintana MD Unavailable [phone] Jan Mahmood MD Unavailable Rio Jaquez [...] MD Unavailable Joesph Crowe MD Unavailable [phone] Joesph Crowe MD Unavailable [phone] Adonay Haq MD Unavailable [phone] Denilson Srinivasan MD Unavailable [phone] Jason Alvares MD Unavailable Ruth RiddleM, Podiatry /Foot and Ankle Surgery Unavailable Omar Carmona MD Primary Care Provider Jignesh Mathias MD Unavailable Adonay Haq MD Unavailable [phone] Omar Carmona MD Unavailable Jason Alvares MD Unavailable Jignesh Mathias MD Unavailable Ayad Lopez PhD LP Unavailable [phone] Gavi Nieto-C Unavailable [phone] Encounter Details Date Type Department Care Team (Late st Contact Info) Description 02/07/2021 [facility] Neurology Clinic [address] [phone] Phan Coello MD Social History Tobacco Use [...] Assigned at Female 09/12/2020 12:05 PM COPY WORKER Legal Sex Female 3:26 AM COPY WORKER Gender Identity Female 09/12/2020 12:05 PM COPY WORKER Sexual Orientation Straight 12/19/2021 10 :44 [...] Contact Info) Description 06/13/2025 6:00 PM COPY WORKER Ancillary Procedure [facility] [address] [place] [phone] Omar Carmona MD [address] [place] [address] [phone] 06/14/2025 4:00 PM COPY WORKER Office Visit [facility] Primary [facility] Clinic [address] [place] [address] Omar Carmona MD [address] [place] [address] [phone] 06/15/2025 12:45 PM COPY WORKER Therapy Visit [facility] [address] [place] [phone] Jason Alvares MD [address] [place] [address] 984625 Chaya Castillo, OTR [facility] 150 [place], [place] 698327 06/19/2025 10:30 AM COPY WORKER Virtual Visit [facility] Primary Care [address] [address] Omar Carmona MD [address] [place] [address] [phone] Gerson Santos RPH 06/26/2025 11:00 AM COPY WORKER Therapy Visit [facility] [address] [place] [phone] Jasno Alvares MD [address] [place] [address] 45[address] Chaya Castillo OTR [address] [address] 07/09/2025 12:45 PM COPY WORKER Therapy Visit [facility] [address] [phone] Jason Alvares MD [address] [place] [address] 16[address] Chaya Castillo OTR [address] [address] 07/18/2025 3:00 PM COPY WORKER Office Visit [facility] Heart [address] [phone] Adonay Chapman APRN [address] 563195 11/05/2025 12:30 PM CDT Lab [facility] Lab [address] [phone] 11/05/2025 1:45 PM CDT Office Visit [facility] Dermatology [address] [place] [phone] Gavi Nieto PA-C Dermatology [address] [place] [address] 11/20/2025 10:30 AM CDT Virtual Visit [address] [phone] Marquise Hanley MD [address] [place] [address] 769405 documented as of this encounter Goals Goal [...] Depression Total Score: 12 021 9:43 AM COPY WORKER documented as of this encounter Care Teams Riding Instructor Relationship Specialty Start Date End Date Rio Jaquez MD [address] [place] [address] 39239 PCP - General Family Practice 12/02/10 07/13/24 Omar Carmona MD [address] [place] [address] 91219 PCP - General Family Medicine 07/14/24 Barry Kilpatrick MD [address] [place] [address] [id number] [place] [address] Neurology 07/19/14 Michelle Henderson I, RN Nurse Coordinator Neurology 07/19/14 Rio Jaquez MD [address] [place] [address] 00287 Family Practice 10/15/14 Jemima Jaramillo MD director machine 11/20/14 Kelley Chin, [facility] [address] [place] [address] 83265 Nurse Coordinator Cardiology 11/04/15 Sydnee Saleem MD 420 [facility] 508 [place] [address] Cardiology 11/04/15 Karlene Moya MD [address] [place] [address] [phone] Ophthalmology 06/24/17 Wilbert Quintero, OD [address] [place] [address] 964415 Optometry 06/24/17 Rod Gauthier DPM [address] [place] [address] 198285 Track Welder Primary Podiatric Medicine 06/21/18 aNllely Hogue, TANIA Registered Nurse 02/20/19 11/23/22 Larisa Vargas, TANIA Specialty Refrigeration Brazer/Solderer Cardiology 04/18/19 03/06/22 Francisco Lott MD [address] [place] [address] 88 [place] [address] Assigned Rheumatology Provider 05/31/20 12/13/21 Greg Ortega MD [address] [place] [address] 810095 Assigned Surgical Provider 06/23/20 12/06/21 Jan Mahmood MD [address] [place], [place] [address]B 2A [place], [place] 048845 Gastroenterology 11/05/20 Brandt Quintana MD 1414 [place] [address] Resident 11/05/20 Jan Mahmood MD 516 [facility] 2A [place] [address] Assigned Gastroenterology Provider 12/01/20 Rio Jaquez MD 909 [facility] [address] 4 [place], [place] 655865 Assigned PCP 11/17/20 09/30/24 Dom Eason MD [address] [place] [address] 353 [place] [address] Internal Medicine 12/02/20 Jayla Plaza, RN Specialty Refrigeration Brazer/Solderer Hepatology 01/09/21 02/13/24 Sydnee Saleem MD [address] [place] [address] [phone] Assigned Heart and Vascular Provider 02/02/21 07/24/22 Phan Coello MD Assigned Neuroscience Provider 02/21/21 11/22/21 Cristian Barragan MD 2945 [place] [address] Assigned Infectious Disease Provider 02/21/21 03/06/22 Dom Eason MD [address] [place] [address] 353 [place] [address] Assigned Nephrology Provider 04/20/21 01/02/22 Jaimie Vernon, RN Specialty Refrigeration Brazer/Solderer Cardiology 10/28/21 Ruth Riddle DPM, Podiatry/Foot and Ankle Surgery [address] [place] [address] Assigned Musculoskeletal Provider 11/30/21 09/30/23 Luis Arrington MD [address] [place] [address] 69164 Assigned Neuroscience Provider 11/23/21 01/02/22 Jason Alvares MD [address] [place] [address] 21859 Assigned Neuroscience Provider 01/03/22 05/15/22 Marquise Hanley MD [address] [place] [address] 37270 Endocrinology, Diabetes, and Metabolism 03/05/22 Vlad Ramey MD [address] [place] [address] 77906 Cardiovascular Disease 05/07/22 Joesph Crowe MD [address] [place] [address] 93177 Surgery 05/07/22 Luis Arrington MD [address] [place] [address] 15095 Assigned Neuroscience Provider 05/16/22 05/14/23 Michelle Padilla RN Specialty Refrigeration Brazer/Solderer Cardiology 07/03/22 Vlad Ramey MD 9 [place] [address] Assigned Heart and Vascular Provider 07/25/22 05/28/23 Marquise Hanley MD 9 [place] [address] Assigned Endocrinology Provider 08/15/22 Dom Eason MD 717 [facility] 353 [place] [address] Assigned Nephrology Provider 11/28/22 02/19/23 Wagner Oliver MD [address] [place] [address] Critical Care 12/15/22 Laura Epperson NP 7 [facility] [address] [place] [address] Assigned Nephrology Provider 02/20/23 08/30/24 Thom Taveras MD [address], [address] [place] [address] Assigned Cancer Care Provider 02/06/23 08/20/23 Joesph Crowe MD [address] [place] [address] 55673 Surgery 03/17/23 Joesph Crowe MD [address] [place] [address] 99372 Assigned Surgical Provider 04/03/23 09/30/24 Adonay Haq MD [address] [place] [address] 06105 Internal Medicine 06/14/23October, Denilson Jackson MD [address] [place], [place] 136295 Assigned Heart and Vascular Provider 05/29/23 11/28/24 Jason Alvares MD [address] [phone] Assigned Neuroscience Provider 05/15/23 11/28/24 Ruth Riddle, DPM, Podiatry/Foot and Ankle Surgery [address] [place], [place] 350387 Assigned Musculoskeletal Provider 10/22/23 Jignesh Mathias MD [address] [place] [address] 579585 Gastroenterology 09/25/24 Adonay Haq MD [address] [place] [address] 97677 Assigned PCP 10/01/24 12/28/24 Omar Carmona MD [address] [place] [address] 71025 Assigned PCP 12/29/24 Jason Alvares MD [address] [address] Assigned Neuroscience Provider 12/29/24 Jignesh Mathias MD [address] [place] [address] 81730 Assigned Surgical Provider 12/29/24 Ayad Lopez, PhD LP [address] [place] [address] 90710 Assigned Behavioral Health Provider 02/28/25 Gavi Nieto PANavinC [address] [place] [address] [phone] Physician Kennel Helper Dermatology 03/19/25 documented as of this encounter
--- OUTSIDE RECORDS SUMMARY | 2025-06-10 11:40 | XMS_ITS | Encounter Summary ---
Author Organization [facility] Address [address] [place] [address] 8[address]65 Care Team Providers Care Well Flow Operator Name Role Phone Rio Jaquez MD Primary Care Provider Barry Kilpatrick MD Unavailable Michelle Henderson RN Unavailable [phone] Rio Jaquez MD Unavailable [phone] Jemima Jaramillo MD Unavailable Unavai Kelley Bautista RN Unavailable [phone] Sydnee Saleem MD Unavailable [phone] Karlene Moya MD Unavailable [phone] Wilbert Quintero OD Unavailable [phone] Rod Gauthier DPM Unavailable [phone] Nallely Hogue RN Unavailable Unavailable Larisa Vargas RN Unavailable Unavailable Francisco Lott MD Unavailable [phone] Greg Ortega MD Unavailable [phone] Jna Mahmood MD Unavailable [phone] Brandt Quintana MD Unavailable [phone] Jan Mahmood MD Unavailable Rio Jaquez [...] MD Unavailable Joesph Crowe MD Unavailable [phone] Joesph Crowe MD Unavailable [phone] Adonay Haq MD Unavailable [phone] Denilson Srinivasan MD Unavailable [phone] Jason Alvares MD Unavailable Ruth Riddle DPM, Podiatry /Foot and Ankle Surgery Unavailable Omar Carmona MD Primary Care Provider Jignesh Mathias MD Unavailable Adonay Haq MD Unavailable [phone] Omar Carmona MD Unavailable Jason Alvares MD Unavailable Jignesh Mathias MD Unavailable Ayad Lopez PhD LP Unavailable [phone] Gavi Nieto-C Unavailable [phone] Encounter Details Date Type Department Care Team (Late st Contact Info) Description 01/28/2021 [facility] Medical Advice [facility] Primary Care Clinic 909 [facility] 4th [place] [address] Radha Paiz, [facility] [address] [place], [place] 77[address] Social History Tobacco Use Types Packs/Day Years [...] Assigned at Female 09/12/2020 12:05 PM FAMILY PRACTICE DOCTOR Legal Sex Female 3:26 AM FAMILY PRACTICE DOCTOR Gender Identity Female 09/12/2020 12:05 PM FAMILY PRACTICE DOCTOR Sexual Orientation Straight 12/19/2021 10 :44 AM [...] Contact Info) Description 06/13/2025 6:00 PM FAMILY PRACTICE DOCTOR Ancillary Procedure [facility] Imaging Center CT Clinic [address] [phone] Omar Carmona MD [address] [place] [address] 087725 06/14/2025 4:00 PM FAMILY PRACTICE DOCTOR Office Visit [facility] Primary Care [address] [phone] Omar Carmona MD [address] [place] [address] [phone] 06/15/2025 12:45 PM FAMILY PRACTICE DOCTOR Therapy Visit [facility] 150 [place] [phone] Jason Alvares MD 420 [facility] 295 [place], [place] 645725 Chaya Castillo, OTR [facility] 150 [place], [place] [phone] 06/19/2025 10:30 AM FAMILY PRACTICE DOCTOR Virtual Visit [facility] [address] [address] Omar Carmona MD [address] [place] [address] [phone] Gerson Santos RPH 06/26/2025 11:00 AM FAMILY PRACTICE DOCTOR Therapy Visit [facility] 150 [place] [address]-559614 Jason Alvares MD [address] [address] Chaya Castillo, OTR [facility] 150 [place] [address] 07/09/2025 12:45 PM FAMILY PRACTICE DOCTOR Therapy Visit [facility] Rehabilitation Services [address] [phone] Jason Alvares MD [address] [place] [address] 280[address] Chaya Castillo, OTR [address] [address] 07/18/2025 3:00 PM FAMILY PRACTICE DOCTOR Office Visit [facility] Heart [address] [phone] Adonay Chapman APRN [facility] 500 [place] [address] 11/05/2025 12:30 PM CDT Lab [facility] Lab [address] [place] [phone] 11/05/2025 1:45 PM CDT Office Visit [facility] Dermatology Clinic [address] [place] [phone] Gavi Nieto PA-C Dermatology [address] [place] [address] 0[address] 11/20/2025 10:30 AM CDT Virtual Visit [address] [address] Marquise Hanley MD [address] [place] [address] 6[address]47 documented as of this encounter Goals Goal [...] Depression Total Score: 12 021 9:43 AM FAMILY PRACTICE DOCTOR documented as of this encounter Care Teams Well Flow Operator Relationship Specialty Start Date End Date Rio Jaquez MD [address] [place] [address] 79266 PCP - General Family Practice 12/02/10 07/13/24 Omar Carmona MD [address] [place] [address] 69748 PCP - General Family Medicine 07/14/24 Barry Kilpatrick MD [address] [place] [address] [id number] [place] [address] Neurology 07/19/14 Michelle Henderson I, RN Nurse Coordinator Neurology 07/19/14 Rio Jaquez MD [address] [place] [address] 90177 Family Practice 10/15/14 Jemima Jaramillo MD [facility] 11/20/14 Kelley Chin, TANIA [place] 895405 Nurse Coordinator Cardiology 11/04/15 Sydnee Saleem MD [address] [place] [address] 508 [place] [address] Cardiology 11/04/15 Karlene Moya MD [address] [place] [address] 813075 Ophthalmology 06/24/17 Wilbert Quintero OD [address] [place] [address] 904765 Optometry 06/24/17 Rod Gauthier DPM [address] [place] [address] 372265 Cst Primary Podiatric Medicine 06/21/18 Nallely Hogue, RN Registered Nurse 02/20/19 11/23/22 Larisa Vargas, TANIA Specialty Industrial Arts Teacher Cardiology 04/18/19 03/06/22 Francisco Lott MD [address] [place] [address] 075495 Assigned Rheumatology Provider 05/31/20 12/13/21 Greg Ortega MD [address] [place] [address] 988805 Assigned Surgical Provider 06/23/20 12/06/21 Jan Mahmood MD [address] [place] [address] 318581 Gastroenterology 11/05/20 Brandt Quintana MD 1414 [place] [address] Resident 11/05/20 Jan Mahmood MD 516 [facility] 2A [place] [address] Assigned Gastroenterology Provider 12/01/20 Rio Jaquez MD [address] 178705 Assigned PCP 11/17/20 09/30/24 Dom Eason MD [address] [place] [address] 14921 Internal Medicine 12/02/20 Jayla Plaza, RN Specialty Industrial Arts Teacher Hepatology 01/09/21 02/13/24 Sydnee Saleem MD 6550 [facility] [address] [place] [address] 7[address]30 Assigned Heart and Vascular Provider 02/02/21 07/24/22 Phan Coello MD Assigned Neuroscience Provider 02/21/21 11/22/21 Cristian Barragan MD [address] [place] [address] 21153 Assigned Infectious Disease Provider 02/21/21 03/06/22 Dom Eason MD [address] [place] [address] 68239 Assigned Nephrology Provider 04/20/21 01/02/22 Jaimie Vernon, RN Specialty Industrial Arts Teacher Cardiology 10/28/21 Ruth Riddle DPM, Podiatry/Foot and Ankle Surgery [address] [place] [address] Assigned Musculoskeletal Provider 11/30/21 09/30/23 Luis Arrington MD [address] [place] [address] 05276 Assigned Neuroscience Provider 11/23/21 01/02/22 Jason Alvares MD [address] [place] [address] 295 [place] [address] Assigned Neuroscience Provider 01/03/22 05/15/22 Marquise Hanley MD [address] [place] [address] 41827 Endocrinology, Diabetes, and Metabolism 03/05/22 Vlad Ramey MD [address] [place] [address] 47357 Cardiovascular Disease 05/07/22 Joesph Crowe MD [address] [place] [address] 10080 Surgery 05/07/22 Luis Arrington MD [address] [place] [address] 73200 Assigned Neuroscience Provider 05/16/22 05/14/23 Michelle Padilla RN Specialty Industrial Arts Teacher Cardiology 07/03/22 Vlad Ramey MD [address] [place] [address] 03941 Assigned Heart and Vascular Provider 07/25/22 05/28/23 Marquise Hanley MD [address] [place] [address] 86808 Assigned Endocrinology Provider 08/15/22 Dom Eason MD 7 [facility] 353 [place] [address] Assigned Nephrology Provider 11/28/22 02/19/23 Wagner Oliver MD 6401 [facility] [place] [address] Critical Care 12/15/22 Laura Epperson NP [address] [place] [address] 1932 [place] [address] Assigned Nephrology Provider 02/20/23 08/30/24 Thom Taveras MD [address] [place] [address], [address] [address] Assigned Cancer Care Provider 02/06/23 08/20/23 Joesph Crowe MD [address] [place] [address] 57304 Surgery 03/17/23 Joesph Crowe MD [address] [place] [address] 96180 Assigned Surgical Provider 04/03/23 09/30/24 Adonay Haq MD [address] [place] [address] 23143 Internal Medicine 06/14/23October, Denilson Jackson MD [address] [facility] [address] [place] [address] Assigned Heart and Vascular Provider 05/29/23 11/28/24 Jason Alvares MD [address] [place] [address] 87260 Assigned Neuroscience Provider 05/15/23 11/28/24 Ruth Riddle, DPM, Podiatry/Foot and Ankle Surgery [address] [address] [facility] 300 [place] [address] Assigned Musculoskeletal Provider 10/22/23 Jignesh Mathias MD [address] [place] [address] 61821 Gastroenterology 09/25/24 Adonay Haq MD [address] [place] [address] 93883 Assigned PCP 10/01/24 12/28/24 Omar Carmona MD [address] [place] [address] 21733 Assigned PCP 12/29/24 Jason Alvares MD [address] [place] [address] 904995 Assigned Neuroscience Provider 12/29/24 Jignesh Mathias MD 909 [place] [address] Assigned Surgical Provider 12/29/24 Ayad Lopez, PhD LP [address] [place] [address] Assigned Behavioral Health Provider 02/28/25 Gavi Nieto PANavinC [address] [place] [address]455 Physician Team Leader Surgery Dermatology 03/19/25 documented as of this encounter
--- OUTSIDE RECORDS SUMMARY | 2025-06-10 11:40 | XMS_ITS | Encounter Summary ---
Author Organization [place] Address [address] [place] [address] 52187 Care Team Providers Care Motorboat Operator Name Role Phone Rio Jaquez MD Primary Care Provider Barry Kilpatrick MD Unavailable Michelle Henderson RN Unavailable [phone] Rio Jaquez MD Unavailable [phone] Jemima Jaramillo MD Unavailable Unavai Kelley Bautista RN Unavailable [phone] Sydnee Saleem MD Unavailable [phone] Karlene Moya MD Unavailable [phone] Wilbert Quintero OD Unavailable [phone] Rod Gauthier DPM Unavailable [phone] Nallely Hogue RN Unavailable Unavailable Larisa Vargas RN Unavailable Unavailable Francisco Lott MD Unavailable [phone] Greg Ortega MD Unavailable [phone] Jan Mahmood MD Unavailable [phone] Brandt Quintana MD Unavailable [phone] Jan Mahmood MD Unavailable Rio Jaquez [...] MD Unavailable Joesph Crowe MD Unavailable [phone] Joesph Crowe MD Unavailable [phone] Adonay Haq MD Unavailable [phone] Denilson Srinivasan MD Unavailable [phone] Jason Alvares MD Unavailable Ruth RiddleM, Podiatry /Foot and Ankle Surgery Unavailable Omar Carmona MD Primary Care Provider Jignesh Mathias MD Unavailable Adonay Haq MD Unavailable [phone] Omar Carmona MD Unavailable Jason Alvares MD Unavailable Jignesh Mathias MD Unavailable Ayad Lopez PhD Unavailable [phone] Gavi Nieto-Keisha Unavailable [phone] Encounter Details Date Type Department Care Team (Late st Contact Info) Description 02/17/2021 [facility] Medical Advice Adult Call Center [address] [place] [address] [phone] ArabellavandemereLizbeth Social History Tobacco Use Types Packs/Day Years [...] Assigned at Female 09/12/2020 12:05 PM 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 Care [address] [phone] Omar Carmona MD [address] [place] [address] 610125 06/15/2025 12:45 PM HEAT PUMP INSTALLER Therapy Visit [address] [phone] Jason Alvares MD [address] [place] [address] [phone] Chaya Castillo, OTR [facility] 150 [place] [address] 06/19/2025 10:30 AM HEAT PUMP INSTALLER Virtual Visit [address] [phone] Omar Carmona MD [address] [place] [address] 553115 Gerson Santos RPH 06/26/2025 11:00 AM HEAT PUMP INSTALLER Therapy Visit [facility] 150 [place] [phone] Jason Alvares MD [address] [place] [address] 80[address] Chaya Castillo OTR [address] [address] 07/09/2025 12:45 PM HEAT PUMP INSTALLER Therapy Visit [facility] [address] [phone] Jason Alvares MD 420 [facility] 295 [place] [address] Chaya Castillo OTR [address] [address] 07/18/2025 3:00 PM HEAT PUMP INSTALLER Office Visit [facility] Heart [address] [phone] Adonay Chapman APRN [address] [address] 11/05/2025 12:30 PM CDT Lab [facility] Lab [address] [phone] 11/05/2025 1:45 PM CDT Office Visit [facility] Dermatology [address] [phone] Gavi Nieto PA-C Dermatology [address] [place] [address] 25[address] 11/20/2025 10:30 AM CDT Virtual Visit [address] [phone] Marquise Hanley MD [address] [place] [address] 70218 documented as of this encounter Goals Goal [...] Depression Total Score: 12 021 9:43 AM HEAT PUMP INSTALLER documented as of this encounter Care Teams Motorboat Operator Relationship Specialty Start Date End Date Rio Jaquez MD [address] [place] [address] 05504 PCP - General Family Practice 12/02/10 07/13/24 Omar Carmona MD [address] [place] [address] [phone] PCP - General Family Medicine 07/14/24 Barry Kilpatrick MD [address] [place] [address] RH4274UN [place], [place] 201065 Neurology 07/19/14 Michelle Henderson RN Nurse Coordinator Neurology 07/19/14 Rio Jaquez MD [address] [place] [address] 110705 Family Practice 10/15/14 Jemima Jaramillo MD senior business analyst 11/20/14 Kelley Chin, TANIA [address] 399705 Nurse Coordinator Cardiology 11/04/15 Sydnee Saleem MD [address] [place] [address] 508 [place], [place] 135295 Cardiology 11/04/15 Karlene Moya MD [address] [place] [address] 217975 Ophthalmology 06/24/17 Wilbert Quintero, OD [address] [place] [address] 368145 Optometry 06/24/17 Rod Gauthier DPM [address] [place], [place] 30[address] Facility Service Manager Primary Podiatric Medicine 06/21/18 Nallely Hogue, RN Registered Nurse 02/20/19 11/23/22 Larisa Vargas, TANIA Specialty Director Of Nursing Cardiology 04/18/19 03/06/22 Francisco Lott MD [address] [place] [address] 88 [place], [place] 429845 Assigned Rheumatology Provider 05/31/20 12/13/21 Greg Ortega MD [address] [place] [address] 00455 Assigned Surgical Provider 06/23/20 12/06/21 Jan Mahmood MD [address] [place] [address] 2[address] [place], [place] 001585 Gastroenterology 11/05/20 Brandt Quintana MD 1414 [place] [address] Resident 11/05/20 Jan Mahmood MD 516 [facility] 2A [place] [address] Assigned Gastroenterology Provider 12/01/20 Rio Jaquez MD 909 [facility] [place] 4 [place] [address] Assigned PCP 11/17/20 09/30/24 Dom Eason MD 717 [facility] 353 [place], [place] 686334 Internal Medicine 12/02/20 Jayla Plaza, RN Specialty Director Of Nursing Hepatology 01/09/21 02/13/24 Sydnee Saleem MD [address] [place] [address] [phone] Assigned Heart and Vascular Provider 02/02/21 07/24/22 Phan Coello MD Assigned Neuroscience Provider 02/21/21 11/22/21 Cristian Barragan MD 2945 [place] [address] Assigned Infectious Disease Provider 02/21/21 03/06/22 Dom Eason MD 717 [facility] 353 [place] [address] Assigned Nephrology Provider 04/20/21 01/02/22 Jaimie Vernon, RN Specialty Director Of Nursing Cardiology 10/28/21 Ruth Riddle DPM, Podiatry/Foot and Ankle Surgery [address] R[place]IG[place]Z [address] [place] [address] 54598 Assigned Musculoskeletal Provider 11/30/21 09/30/23 Luis Arrington MD [address] [place] [address] 01392 Assigned Neuroscience Provider 11/23/21 01/02/22 Jason Alvares MD [address] [place] [address] 52499 Assigned Neuroscience Provider 01/03/22 05/15/22 Marquise Hanley MD [address] [place] [address] 03663 Endocrinology, Diabetes, and Metabolism 03/05/22 Vlad Ramey MD [address] [place] [address] 67964 Cardiovascular Disease 05/07/22 Joesph Crowe MD [address] [place] [address] 91389 Surgery 05/07/22 Luis Arrington MD [address] [place] [address] 98268 Assigned Neuroscience Provider 05/16/22 05/14/23 Michelle Padilla RN Specialty Director Of Nursing Cardiology 07/03/22 Vlad Ramey MD 909 [place] [address] Assigned Heart and Vascular Provider 07/25/22 05/28/23 Marquise Hanley MD 9 [place] [address] Assigned Endocrinology Provider 08/15/22 Dom Eason MD 7 [facility] [address] [place] [address] Assigned Nephrology Provider 11/28/22 02/19/23 Wagner Oliver MD [address] [place] [address] Critical Care 12/15/22 Laura Epperson NP 7 [facility] [address] [place] [address] Assigned Nephrology Provider 02/20/23 08/30/24 Thom Taveras MD [address] [place] [address] Assigned Cancer Care Provider 02/06/23 08/20/23 Joesph Crowe MD [address] [place] [address] 44369 Surgery 03/17/23 Joesph Crowe MD [address] [place] [address] 63727 Assigned Surgical Provider 04/03/23 09/30/24 Adonay Haq MD [address] [place] [address] 38567 Internal Medicine 06/14/23OctoberDenilson MD [address] [facility] [address] [place] [address] Assigned Heart and Vascular Provider 05/29/23 11/28/24 Jason Alvares MD 420 [facility] 295 [place], [place] 527245 Assigned Neuroscience Provider 05/15/23 11/28/24 Ruth Riddle DPM, Podiatry/Foot and Ankle Surgery [address] [place], [place] 584097 Assigned Musculoskeletal Provider 10/22/23 Jignesh Mathias MD [address] [place] [address] 928075 Gastroenterology 09/25/24 Adonay Haq MD [address] [place] [address] 11550 Assigned PCP 10/01/24 12/28/24 Omar Carmona MD [address] [place] [address] 08677 Assigned PCP 12/29/24 Jason Alvares MD [address] [address] Assigned Neuroscience Provider 12/29/24 Jignesh Mathias MD 909 [place] [address] Assigned Surgical Provider 12/29/24 Ayad Lopez, PhD LP [address] [place] [address] 67593 Assigned Behavioral Health Provider 02/28/25 Gavi Nieto PA-C [address] [place] [address] 8[address] Physician Shift Supervisor Rn Dermatology 03/19/25 documented as of this encounter
--- OUTSIDE RECORDS SUMMARY | 2025-06-10 11:40 | XMS_ITS | Encounter Summary ---
Author Organization [place] Address [address] [place] [address] 23442 Care Team Providers Care Facility Practice Specialist Name Role Phone Rio Jaquez MD Primary Care Provider Barry Kilpatrick MD Unavailable Michelle Henderson RN Unavailable [phone] Rio Jaquez MD Unavailable [phone] Jemima Jaramillo MD Unavailable Unavai Kelley Bautista RN Unavailable [phone] Sydnee Saleem MD Unavailable [phone] Karlene Moya MD Unavailable [phone] Wilbert Quintero OD Unavailable [phone] Rod Gauthier DPM Unavailable [phone] Nallely Hogue RN Unavailable Unavailable Larisa Vargas RN Unavailable Unavailable Francisco Lott MD Unavailable [phone] Greg Ortega MD Unavailable [phone] Jan Mahmood MD Unavailable [phone] Brandt Quintana MD Unavailable [phone] Jan Mahmood MD Unavailable Rio Jaquez MD Unavailable Dom Eason MD Unavailable [phone] Jayla Plaza RN Unavailable Jayla Plaza RN Unavailable Sydnee Saleem MD Unavailable Phan Coello MD Unavailable Unavailable Cristian Barragan MD Unavailable Dom Eason MD Unavailable [phone] Jaimie Vernon RN Unavailable Unavailable Ruth Riddle DPM, Podiatry /Foot and Ankle Surgery Unavailable Luis Arrington MD Unavailable Jason Alvares MD Unavailable Marquise Hanley MD Unavailable Vlad Ramey MD Unavailable Joesph Crowe MD Unavailable Luis Arrington MD Unavailable Michelle Padilla RN Unavailable Unavaila ble Vlad Ramey MD Unavailable Marquise Hanley MD Unavailable Dom Eason MD Unavailable Wagner Oliver MD Unavailable [phone] Laura Epperson NP Unavailable [phone] Thom Taveras MD Unavailable Joesph Crowe MD Unavailable [phone] Joesph Crowe MD Unavailable Adonay Haq MD Unavailable OctoberDenilson MD Unavailable Jason Alvares MD Unavailable Ruth Riddle DPM, Podiatry /Foot and Ankle Surgery Unavailable Omar Carmona MD Primary Care Provider [phone] Jignesh Mathias MD Unavailable Adonay Haq MD Unavailable [phone] Omar Carmona MD Unavailable [phone] Jason Alvares MD Unavailable Jignesh Mathias MD Unavailable Ayad Lopez PhD LP Unavailable Gavi Nieto PA-C Unavailable Encounter Details Date Type Department Care Team (Late st Contact Info) Description 01/09/2021 MyC Medical Advice [facility] Hepatology Clinic [address] [phone] Jan Mahmood MD [address] [place] [address] Social History Tobacco Use Types Packs/Day [...] Sex Assigned at Female 09/12/2020 12:05 PM CHRO Legal Sex Female 3:26 AM CHRO Gender Identity Female 09/12/2020 12:05 PM CHRO Sexual Orientation Straight 12/19/2021 10 :44 AM [...] st Contact Info) Description 06/13/2025 6:00 PM CHRO Ancillary Procedure [facility] Imaging Center CT Clinic [address] [phone] Omar Carmona MD [address] [place] [address] [phone] 06/14/2025 4:00 PM CHRO Office Visit [facility] Primary Care [address] [phone] Omar Carmona MD [address] [place] [address] [phone] 06/15/2025 12:45 PM CHRO Therapy Visit [facility] Rehabilitation Services [address] [phone] Jason Alvares MD 420 [facility] 295 [place], [place] [phone] Chaya Castillo, OTR [address] [address] 06/19/2025 10:30 AM CHRO Virtual Visit [facility] Primary Care [address] [phone] Omar Carmona MD [address] [place] [address] 196455 Gerson Santos RPH 06/26/2025 11:00 AM CHRO Therapy Visit [facility] 150 [place] [phone] Jason Alvares MD [address] [place] [address] [address] [facility] 150 [place] [address] 07/09/2025 12:45 PM CHRO Therapy Visit [facility] 150 [place] [phone] Jason Alvares MD [address] [place] [address] [address] [facility] 150 [place] [address] 07/18/2025 3:00 PM CHRO Office Visit [facility] Heart [address] [phone] Adonay Chapman APRN [address] [address] 11/05/2025 12:30 PM CDT Lab [facility] Lab [address] [phone] 11/05/2025 1:45 PM CDT Office Visit [facility] Dermatology Clinic [address] [place] [phone] Gavi Nieto PA-C Dermatology [address] [place] [address] 11/20/2025 10:30 AM CDT Virtual Visit [address] [phone] Marquise Hanley MD [address] [place] [address] 440295 documented as of this encounter Goals Goal [...] Depression Total Score: 12 021 9:43 AM CHRO documented as of this encounter Care Teams Facility Practice Specialist Relationship Specialty Start Date End Date Rio Jaquez MD [address] [place] [address] 848315 PCP - General Family Practice 12/02/10 07/13/24 Omar Carmona MD [address] [place] [address] 759475 PCP - General Family Medicine 07/14/24 Barry Kilpatrick MD [address] [place] [address] [id number] [place], [place] [phone] Neurology 07/19/14 Michelle Henderson I, RN Nurse Coordinator Neurology 07/19/14 Rio Jaquez MD [address] [place] [address] 197415 Family Practice 10/15/14 Jemima Jaramillo MD asbestos worker helper 11/20/14 Kelley Chin, TANIA [facility] 909 [place], [place] 337185 Nurse Coordinator Cardiology 11/04/15 Sydnee Saleem MD [address] [place] [address] 508 [place], [place] 269485 Cardiology 11/04/15 Karlene Moya MD [address] [place] [address] 174995 Ophthalmology 06/24/17 Wilbert Quintero, OD [address] [place] [address] Optometry 06/24/17 Rod Gauthier DPM [address] [place] [address] Mineral Surveyor Primary Podiatric Medicine 06/21/18 Nallely Hogue, TANIA Registered Nurse 02/20/19 11/23/22 Larisa Vargas, TANIA Specialty Electrical Line Splicer Cardiology 04/18/19 03/06/22 Francisco Lott MD [address] [place] [address] 870795 Assigned Rheumatology Provider 05/31/20 12/13/21 Greg Ortega MD [address] [place] [address] 830515 Assigned Surgical Provider 06/23/20 12/06/21 Jan Mahmood MD 516 [facility] 2A [place] [address] Gastroenterology 11/05/20 Brandt Quintana MD 1414 [place] [address] Resident 11/05/20 Jan Mahmood MD 516 [facility] 2A [place] [address] Assigned Gastroenterology Provider 12/01/20 Rio Jaquez MD 909 [facility] 4 [place], [place] 143065 Assigned PCP 11/17/20 09/30/24 Dom Eason MD 717 [facility] 353 [place], [place] 780674 Internal Medicine 12/02/20 Jayla Plaza, RN Specialty Electrical Line Splicer Hepatology 01/09/21 02/13/24 Jayla Plaza, RN Specialty Electrical Line Splicer Hepatology 01/10/21 01/10/21 Sydnee Saleem MD 6550 [facility] [address] [place] [address] Assigned Heart and Vascular Provider 02/02/21 07/24/22 Phan Coello MD Assigned Neuroscience Provider 02/21/21 11/22/21 Cristian Barragan MD 2945 [place] [address] Assigned Infectious Disease Provider 02/21/21 03/06/22 Dom Eason MD [address] [place] [address] 353 [place] [address] Assigned Nephrology Provider 04/20/21 01/02/22 Jaimie Vernon, TANIA Specialty Electrical Line Splicer Cardiology 10/28/21 Ruth Riddle DPM, Podiatry/Foot and Ankle Surgery [address] [place] [address] [address] Assigned Musculoskeletal Provider 11/30/21 09/30/23 Luis Arrington MD [address] [place] [address] 46475 Assigned Neuroscience Provider 11/23/21 01/02/22 Jason Alvares MD [address] [place] [address] 295 [place], [place] 620595 Assigned Neuroscience Provider 01/03/22 05/15/22 Marquise Hanley MD [address] [place] [address] 15826 Endocrinology, Diabetes, and Metabolism 03/05/22 Vlad Ramey MD [address] [place] [address] 45271 Cardiovascular Disease 05/07/22 Joesph Crowe MD [address] [place] [address] 27735 Surgery 05/07/22 Luis Arrington MD [address] [place] [address] 30888 Assigned Neuroscience Provider 05/16/22 05/14/23 Michelle Padilla, RN Specialty Electrical Line Splicer Cardiology 07/03/22 Vlad Ramey MD [address] [place] [address] 080355 Assigned Heart and Vascular Provider 07/25/22 05/28/23 Marquise Hanley MD [address] [place] [address] 943325 Assigned Endocrinology Provider 08/15/22 Dom Eason MD [address] [place] [address] 21345 Assigned Nephrology Provider 11/28/22 02/19/23 Wagner Oliver MD 6401 [place] [address] Critical Care 12/15/22 Laura Epperson NP [address] [place] [address] 1932 [place] [address] Assigned Nephrology Provider 02/20/23 08/30/24 Thom Taveras MD [address] [place] [address] 94552 Assigned Cancer Care Provider 02/06/23 08/20/23 Joesph Crowe MD [address] [place] [address] 36610 Surgery 03/17/23 Joesph Crowe MD [address] [place] [address] 09626 Assigned Surgical Provider 04/03/23 09/30/24 Adonay Haq MD [address] [place] [address] 10620 Internal Medicine 06/14/23October, Denilson [place] MD [address] [facility] [address] [place] [address] Assigned Heart and Vascular Provider 05/29/23 11/28/24 Jason Alvares MD [address] [place] [address] 295 [place] [address] Assigned Neuroscience Provider 05/15/23 11/28/24 Ruth Riddle DPM, Podiatry/Foot and Ankle Surgery [address] [place] [address] Assigned Musculoskeletal Provider 10/22/23 Jignesh Mathias MD [address] [place] [address] 24758 Gastroenterology 09/25/24 Adonay Haq MD [address] [place] [address] 45859 Assigned PCP 10/01/24 12/28/24 Omar Carmona MD [address] [place] [address] 059135 Assigned PCP 12/29/24 Jason Alvares MD [address] [place] [address] 071605 Assigned Neuroscience Provider 12/29/24 Jignesh Mathias MD [address] [place] [address] [phone] Assigned Surgical Provider 12/29/24 Ayad Lopez, PhD LP [address] [place] [address] Assigned Behavioral Health Provider 02/28/25 Gavi Nieto, PA-C [address] [place] [address] [phone] Physician Timber Trimmer Dermatology 03/19/25 documented as of this encounter
--- OUTSIDE RECORDS SUMMARY | 2025-06-10 11:40 | XMS_ITS | Encounter Summary ---
Author Organization [place] Address [address] [place] [address] Care Team Providers Care Marine Fire Fighter Name Role Phone Rio Jaquez MD Primary Care Provider Barry Kilpatrick MD Unavailable Michelle Henderson I RN Unavailable [phone] Rio Jaquez MD Unavailable +[phone] Jemima Jaramillo MD Unavailable Unavai Kelley Bautista RN Unavailable [phone] Sydnee Saleem MD Unavailable +[phone] Karlene Moya MD Unavailable Wilbert Quintero OD Unavailable +[phone] Rod Gauthier DPM Unavailable Jan Mahmood MD Unavailable +[phone] Brandt Quintana MD Unavailable +[phone] Jan Mahmood MD Unavailable +[phone] Rio Jaquez MD Unavailable +[phone] Dom Eason MD Unavailable Jayla Plaza RN Unavailable +[phone] Jaimie Vernon RN Unavailable Unavailable Ruth RiddleM, Podiatry /Foot and Ankle Surgery Unavailable Marquise Hanley MD Unavailable +[phone] Vlad Ramey MD Unavailable +[phone] Joesph Crowe MD Unavailable + [phone] Michelle Padilla RN Unavailable Unavaila ble Marquise Hanley MD Unavailable +[phone] Wagner Oliver MD Unavailable +[phone] Laura Epperson NP Unavailable +[phone] Thom Taveras MD Unavailable +[phone] Joesph Crowe MD Unavailable + [phone] Joesph Crowe MD Unavailable + [phone] Adonay Haq MD Unavailable [phone] Denilson Srinivasan MD Unavailable + [phone] Jason Alvares MD Unavailable Ruth Riddle DPM, Podiatry /Foot and Ankle Surgery Unavailable Omar Carmona MD Primary Care Provider [phone] Jignesh Mathias MD Unavailable Adonay Haq MD Unavailable +[phone] Omar Carmona MD Unavailable +[phone] Jason Alvares MD Unavailable Jignesh Mathias MD Unavailable Ayad Lopez PhD LP Unavailable +[phone] Gavi Nieto PA-C Unavailable +[phone] Encounter Details Date Type Department Care Team (Late st Contact Info) Description 06/07/2023 MyC Medical Advice [facility] [address] 4th [place] [address] Rio Jaquez MD 909 [facility] 4 [place] [address] Social History Tobacco Use Types Packs/Day Years [...] PHQ-2 Score 2 03/15/2023 [facility] - Occupational Stress Questionnaire Answer Date [...] in an overnight chcf, or couch-surfing.) Yes 06/06/2023 Are you worried [...] Sex Assigned at Female 09/12/2020 12:05 PM SPIRAL WINDING MACHINE HELPER Legal Sex Female 3:26 AM SPIRAL WINDING MACHINE HELPER Gender Identity Female 09/12/2020 12:05 PM SPIRAL WINDING MACHINE HELPER Sexual Orientation Straight 12/19/2021 10 :44 [...] st Contact Info) Description 06/13/2025 6:00 PM SPIRAL WINDING MACHINE HELPER Ancillary Procedure [facility] [address] [phone] Omar Carmona MD [address] [place] [address] [phone] 06/14/2025 4:00 PM SPIRAL WINDING MACHINE HELPER Office Visit [facility] [address] [phone] Omar Carmona MD [address] [place] [address] [phone] 06/15/2025 12:45 PM SPIRAL WINDING MACHINE HELPER Therapy Visit [facility] [address] [phone] Jason Alvares MD [address] [place] [address] 295 [place], [place] 6[address]25 Chaya Castillo, OTR [facility] 150 [place] [address] 06/19/2025 10:30 AM SPIRAL WINDING MACHINE HELPER Virtual Visit [facility] [address] [phone] Omar Carmona MD [address] [place] [address] [phone] Gerson Santos, MORENO 06/26/2025 11:00 AM SPIRAL WINDING MACHINE HELPER Therapy Visit [facility] [address] [place] [phone] Jason Alvares MD [address] [place] [address] [phone] [facility], [facility] [address] [place] [address] 07/09/2025 12:45 PM SPIRAL WINDING MACHINE HELPER Therapy Visit [address] [phone] Jason Alvares MD [address] [place] [address] Chaya Castillo, OTR [facility] [address] [address] 07/18/2025 3:00 PM SPIRAL WINDING MACHINE HELPER Office Visit [facility] [address] [phone] Adonay Chapman APRN [address] 409665 11/05/2025 12:30 PM CDT Lab [facility] [address] 1st [place] [phone] 11/05/2025 1:45 PM CDT Office Visit [facility] Dermatology [facility] [address] 3rd [place] [phone] Gavi Nieto PA-C Dermatology [address] [place] [address] [phone] 11/20/2025 10:30 AM CDT Virtual Visit [address] [address] Marquise Hanley MD 9 [place] [address] documented as of this encounter Goals Goal [...] documented as of this encounter Care Teams Marine Fire Fighter Relationship Specialty Start Date End Date Rio Jaquez MD [address] [place] [address] 4 [place] [address] PCP - General Family Practice 12/02/10 07/13/24 Omar Carmona MD [address] [place] [address] 94162 PCP - General Family Medicine 07/14/24 Barry Kilpatrick MD [address] [place] [address] [id number] [place] [address] Neurology 07/19/14 Michelle Henderson I RN Nurse Coordinator Neurology 07/19/14 Rio Jaquez MD 909 [facility] 4 [place] [address] Family Practice 10/15/14 Jemima Jaramillo MD track production engineer 11/20/14 Kelley Chin, TANIA [facility] 909 [place], [place] 798435 Nurse Coordinator Cardiology 11/04/15 Sydnee Saleme MD 420 [facility] 508 [place], [place] 692915 Cardiology 11/04/15 Karlene Moya MD [address] [place] [address] 113775 Ophthalmology 06/24/17 Wilbert Quintero OD [address] [place] [address] 811755 Optometry 06/24/17 Rod Gauthier DPM [address] [place] [address] [phone] Senior Energy Market Coordinator Primary Podiatric Medicine 06/21/18 Jan Mahmood MD [address] [place] [address] 2[address] [place] [address] Gastroenterology 11/05/20 Brandt Quintana MD [address] [place] [address] Resident 11/05/20 Jan Mahmood MD [address] [place] [address] 2A [place] [address] Assigned Gastroenterology Provider 12/01/20 Rio Jaquez MD [address] [place] [address] 4 [place] [address] Assigned PCP 11/17/20 09/30/24 Dom Eason MD [address] [place] [address] 353 [place] [address] Internal Medicine 12/02/20 Jayla Plaza, RN Specialty Transitions Manager Hepatology 01/09/21 02/13/24 Jaimie Vernon, TANIA Specialty Transitions Manager Cardiology 10/28/21 Ruth Riddle DPM, Podiatry/Foot and Ankle Surgery [address] [address] Assigned Musculoskeletal Provider 11/30/21 09/30/23 Marquise Hanley MD [address] [place] [address] 35[address] Endocrinology, Diabetes, and Metabolism 03/05/22 Vlad Ramey MD [address] [place] [address] 24491 Cardiovascular Disease 05/07/22 Joesph Crowe MD [address] [place] [address] 47552 Surgery 05/07/22 Michelle Padilla, RN Specialty Transitions Manager Cardiology 07/03/22 Marquise Hanley MD [facility] [place] [address] Assigned Endocrinology Provider 08/15/22 Wagner Oliver MD [address] [place] [address] Critical Care 12/15/22 Laura Epperson, LULU 717 [facility] [address] [place] [address] Assigned Nephrology Provider 02/20/23 08/30/24 Thom Taveras MD [address], [address] [place] [address] Assigned Cancer Care Provider 02/06/23 08/20/23 Joesph Crowe MD [address] [place] [address] 36559 Surgery 03/17/23 Joesph Crowe MD [address] [place] [address] 87847 Assigned Surgical Provider 04/03/23 09/30/24 Adonay Haq MD [address] [place] [address] Internal Medicine 06/14/23OctoberDenilson MD [address] [facility] [address] [place] [address] Assigned Heart and Vascular Provider 05/29/23 11/28/24 Jason Alvares MD 420 [facility] 295 [place], [place] 948955 Assigned Neuroscience Provider 05/15/23 11/28/24 Ruth Riddle DPM, Podiatry/Foot and Ankle Surgery [address] R[address]RIGUEZ [address] [place] [address] 158037 Assigned Musculoskeletal Provider 10/22/23 Jignesh Mathias MD [address] [place] [address] 122115 Gastroenterology 09/25/24 Adonay Haq MD [address] [place] [address] [id number] Assigned PCP 10/01/24 12/28/24 Omar Carmona MD [address] [place] [address] [phone] Assigned PCP 12/29/24 Jason Alvares MD [address] [place] [address] 295 [place], [place] [phone] Assigned Neuroscience Provider 12/29/24 Jignesh Mathias MD [address] [place] [address] 94315 Assigned Surgical Provider 12/29/24 Ayad Lopez, PhD LP [address] [place] [address] 388755 Assigned Behavioral Health Provider 02/28/25 Gavi Nieto, PA-C [address] [place] [address] Physician Trade Clerk Dermatology 03/19/25 documented as of this encounter
--- OUTSIDE RECORDS SUMMARY | 2025-06-10 11:41 | XMS_ITS | Encounter Summary ---
Author Organization [place] Address [address] [place] [address] Care Team Providers Care Analytical Chemistry Teacher Name Role Phone Rio Jaquez MD Primary Care Provider Barry Kilpatrick MD Unavailable Michelle Henderson I RN Unavailable [phone] Rio Jaquez MD Unavailable +[phone] Jemima Jaramillo MD Unavailable Unavai Kelley Bautista RN Unavailable [phone] Sydnee Saleem MD Unavailable [phone] Karlene Moya MD Unavailable Wilbert Quintero OD Unavailable +[phone] Rod Gauthier DPM Unavailable [phone] Jan Mahmood MD Unavailable [phone] Brandt Quintana MD Unavailable [phone] Jan Mahmood MD Unavailable +[phone] Rio Jaquez MD Unavailable [phone] Dom Eason MD Unavailable Jayla Plaza RN Unavailable +[phone] Jaimie Vernon RN Unavailable Unavailable Marquise Hanley MD Unavailable +[phone] Vlad Ramey MD Unavailable +[phone] Joesph Crowe MD Unavailable + [phone] Michelle Padilla RN Unavailable Unavaila ble Marquise Hanley MD Unavailable +[phone] Wagner Oliver MD Unavailable +[phone] Laura Epperson NP Unavailable + [phone] Joesph Crowe MD Unavailable + [phone] Joesph Crowe MD Unavailable + [phone] Adonay Haq MD Unavailable [phone] Denilson Srinivasan MD Unavailable + [phone] Jason Alvares MD Unavailable Ruth Riddle DPM, Podiatry /Foot and Ankle Surgery Unavailable Omar Carmona MD Primary Care Provider [phone] Jignesh Mathias MD Unavailable Adonay Haq MD Unavailable [phone] Omar Carmona MD Unavailable [phone] Jason Alvares MD Unavailable Jignesh Mathias MD Unavailable Ayad Lopez PhD LP Unavailable [phone] Gavi Nieto PA-C Unavailable [phone] Encounter Details Date Type Department Care Team (Late st Contact Info) Description 02/02/2024 [facility] [address] [address] Marquise Hanley MD 900 [place] [address] Social History Tobacco Use Types Packs/Day Years [...] Score 2 08/26/2023 [facility] [...] Sex Assigned at Female 09/12/2020 12:05 PM AVIONICS ELECTRONICS TECHNICIAN Legal Sex Female 3:26 AM AVIONICS ELECTRONICS TECHNICIAN Gender Identity Female 09/12/2020 12:05 PM AVIONICS ELECTRONICS TECHNICIAN Sexual Orientation Straight 12/19/2021 10 :44 AM CDT Occupation Industry Job Start Date Job End Date on disability for FMS Not on file Not on file Not on file disabled Not on file Not on file Not on file documented as of this encounter Plan of Treatment Upcoming Encounters Date Type Department Care Team (Late st Contact Info) Description 06/13/2025 6:00 PM AVIONICS ELECTRONICS TECHNICIAN Ancillary Procedure [address] [place] [address] Omar Carmona MD [address] [place] [address] 160925 06/14/2025 4:00 PM AVIONICS ELECTRONICS TECHNICIAN Office Visit [facility] Primary Care [address] [phone] Omar Carmona MD [address] [place] [address] 858745 06/15/2025 12:45 PM AVIONICS ELECTRONICS TECHNICIAN Therapy Visit [facility] 150 [place] [phone] Jason Alvares MD [address] [place] [address] 4787[address] [facility] 150 [place], [place] 704047 06/19/2025 10:30 AM AVIONICS ELECTRONICS TECHNICIAN Virtual Visit [facility] Care [address] [phone] Omar Carmona MD [address] [place] [address] 289435 Gerson Santos RPH 06/26/2025 11:00 AM AVIONICS ELECTRONICS TECHNICIAN Therapy [facility] [address] [place] [phone] Jason Alvares MD [address] [place] [address] 482685 Chaya Castillo OTR [facility] 150 [place], [place] 981237 07/09/2025 12:45 PM AVIONICS ELECTRONICS TECHNICIAN Therapy Visit [facility] Rehabilitation Services [facility] 150 [place] [phone] Jason Alvares MD 420 [facility] 295 [place] [address] Chaya Castillo, OTR [facility] 150 [place] [address] 07/18/2025 3:00 PM AVIONICS ELECTRONICS TECHNICIAN Office Visit [facility] Heart [address] [phone] Adonay Chapman APRN [facility] 500 [place], [place] 820545 11/05/2025 12:30 PM CDT Lab [facility] Lab [address] [place] [phone] 11/05/2025 1:45 PM CDT Office Visit [facility] Dermatology [address]rd [place] [phone] Gavi Nieto PANavinC Dermatology [address] [place] [address] 11/20/2025 10:30 AM CDT Virtual Visit [address] [address] Marquise Hanley MD [address] [place] [address] 395275 documented as of this encounter Goals Goal [...] Total Score: 9 06/14/20 23 7:18 AM AVIONICS ELECTRONICS TECHNICIAN documented as of this encounter Care Teams Analytical Chemistry Teacher Relationship Specialty Start Date End Date Rio Jaquez MD [address] [place] [address] PCP - General Family Practice 12/02/10 07/13/24 Omar Carmona MD [address] [place] [address] 43229 PCP - General Family Medicine 07/14/24 Barry Kilpatrick MD [address] [place] [address] [id number] [place], [place] 616995 Neurology 07/19/14 Michelle Henderson I, RN Nurse Coordinator Neurology 07/19/14 Rio Jaquez MD [address] [place] [address] 133345 Family Practice 10/15/14 Jemima Jaramillo MD manager fire 11/20/14 Kelley Chin, TANIA [address] 123085 Nurse Coordinator Cardiology 11/04/15 Sydnee Saleem MD [address] [place] [address] 508 [place], [place] 134645 Cardiology 11/04/15 Karlene Moya MD 516 [place], [place] 707395 Ophthalmology 06/24/17 Wilbert Quintero, OD 909 [place], [place] 436175 Optometry 06/24/17 Rod Gauthier DPM 9 [place], [place] 019095 MD Beaming Inspector Primary Podiatric Medicine 06/21/18 Jan Mahmood MD 516 [facility] 2A [place], [place] 791805 Gastroenterology 11/05/20 Brandt Quintana MD [address] [place] [address] Resident 11/05/20 Jan Mahmood MD 6 [facility] 2A [place] [address] Assigned Gastroenterology Provider 12/01/20 Rio Jaquez MD 909 [facility] [place] 4 [place], [place] 062395 Assigned PCP 11/17/20 09/30/24 Dom Eason MD 717 [facility] 353 [place] [address] Internal Medicine 12/02/20 Jayla Plaza, RN Specialty Stopper Setter Hepatology 01/09/21 02/13/24 Jaimie Vernon, TANIA Specialty Stopper Setter Cardiology 10/28/21 Marquise Hanley MD [address] [place] [address] 99447 Endocrinology, Diabetes, and Metabolism 03/05/22 Vlad Ramey MD [address] [place] [address] 98964 Cardiovascular Disease 05/07/22 Joseph Crowe MD [address] [place] [address] 50793 Surgery 05/07/22 Michelle Padilla RN Specialty Stopper Setter Cardiology 07/03/22 Marquise Hanley MD [address] [place] [address] 06652 Assigned Endocrinology Provider 08/15/22 Wagner Oliver MD [address] [place] [address] Critical Care 12/15/22 Laura Epperson, LULU [address] [place] [address] 1932 [place] [address] Assigned Nephrology Provider 02/20/23 08/30/24 Joesph Crowe MD [address] [place] [address] 81185 Surgery 03/17/23 Joesph Crowe MD [address] [place] [address] 98804 Assigned Surgical Provider 04/03/23 09/30/24 Adonay Haq MD [address] [place] [address] 50154 Internal Medicine 06/14/23October, Denilson Jackson MD [address] [facility] [address] [place], [place] 998085 Assigned Heart and Vascular Provider 05/29/23 11/28/24 Jason Alvares MD [address] [place] [address] 923545 Assigned Neuroscience Provider 05/15/23 11/28/24 Ruth Riddle DPM, Podiatry/Foot and Ankle Surgery [address] [place], [place] 555117 Assigned Musculoskeletal Provider 10/22/23 Jignesh Mathias MD [address] [place] [address] 09659 Gastroenterology 09/25/24 Adonay Haq MD [address] [place] [address] Assigned PCP 10/01/24 12/28/24 Omar Carmona MD [address] [place] [address] 23944 Assigned PCP 12/29/24 Jason Alvares MD 420 [facility] 295 [place] [address] Assigned Neuroscience Provider 12/29/24 Jignesh Mathias MD [address] [place] [address] 377205 Assigned Surgical Provider 12/29/24 Ayad Lopez, PhD LP [address] [place] [address] [phone] Assigned Behavioral Health Provider 02/28/25 Gavi Nieto PANavinC 500 [place], [place] 265435 Physician Physiognomist Dermatology 03/19/25 documented as of this encounter
--- OUTSIDE RECORDS SUMMARY | 2025-06-10 11:41 | XMS_ITS | Encounter Summary ---
Author Organization [facility] Address [address] [place] [address]96 Care Team Providers Care Title One Reading Teacher Name Role Phone Rio Jaquez MD Primary Care Provider Barry Kilpatrick MD Unavailable Michelle Henderson I RN Unavailable [phone] Rio Jaquez MD Unavailable +[phone] Jemima Jaramillo MD Unavailable Unavai Kelley Bautista RN Unavailable +[phone] Sydnee Saleem MD Unavailable +[phone] Karlene Moya MD Unavailable Wilbert Quintero OD Unavailable +[phone] Rod Gauthier DPM Unavailable +[phone] Jan Mahmood MD Unavailable +[phone] Brandt Quintana MD Unavailable Jan Mahmood MD Unavailable +[phone] Rio Jaquez MD Unavailable +[phone] Dom Eason MD Unavailable Jayla Plaza RN Unavailable +[phone] Jaimie Vernon RN Unavailable Unavailable Marquise Hanley MD Unavailable +[phone] Vlad Ramey MD Unavailable +-[phone] Joesph Crowe MD Unavailable + [phone] Michelle Padilla RN Unavailable Unavaila ble Marquise Hanley MD Unavailable +-[phone] Wagner Oliver MD Unavailable +[phone] Laura Epperson NP Unavailable + [phone] Joesph Crowe MD Unavailable +[phone] Joesph Crowe MD Unavailable + [phone] Adonay Haq MD Unavailable [phone] Denilson Srinivasan MD Unavailable + [phone] Jason Alvares MD Unavailable Ruth Riddle DPM, Podiatry /Foot and Ankle Surgery Unavailable Omar Carmona MD Primary Care Provider [phone] Jignesh Mathias MD Unavailable Adonay Haq MD Unavailable [phone] Omar Carmona MD Unavailable +[phone] Jason Alvares MD Unavailable iJgnesh Mathias MD Unavailable Ayad Lopez PhD LP Unavailable +[phone] Gavi Nieto PA-C Unavailable +[phone] Encounter Details Date Type Department Care Team (Late st Contact Info) Description 02/09/2024 [facility] Hepatology [address] [address] Jan Mahmood MD 6 [facility] 2A [place] [address] Social History Tobacco Use Types Packs/Day Years [...] than three times a week 08/27/2021 Attends Jew Services Not on file 08/27 Do you [...] Answer Date Recorded PHQ-2 Score 2 08/26/2023 [facility] - Occupational Stress Questionnaire Answer [...] Sex Assigned at Female 09/12/2020 12:05 PM SUPPLY TEACHER Legal Sex Female 3:26 AM SUPPLY TEACHER Gender Identity Female 09/12/2020 12:05 PM SUPPLY TEACHER Sexual Orientation Straight 12/19/2021 10 :44 AM CDT Occupation Industry Job Start Date Job End Date on disability for FMS Not on file Not on file Not on file disabled Not on file Not on file Not on file documented as of this encounter Plan of Treatment Upcoming Encounters Date Type Department Care Team (Late st Contact Info) Description 06/13/2025 6:00 PM SUPPLY TEACHER Ancillary Procedure [address] [address] Omar Carmona MD [address] [place] [address] [id number] 06/14/2025 4:00 PM SUPPLY TEACHER Office Visit [facility] Primary Care [address] [phone] Omar Carmona MD [address] [place] [address] [id number] 06/15/2025 12:45 PM SUPPLY TEACHER Therapy Visit [facility] [address] [place] [phone] Jason Alvares MD [address] [place] [address] 306585 Chaya Castillo, OTR [facility] 150 [place], [place] 402077 06/19/2025 10:30 AM SUPPLY TEACHER Virtual Visit [facility] Care [address] [phone] Omar Carmona MD [address] [place] [address] 587605 Gerson Santos [facility] 06/26/2025 11:00 AM SUPPLY TEACHER Therapy Visit [facility] [address] [place] [phone] Jason Alvares MD [address] [place] [address] 044825 Chaya Castillo, OTR [facility] [address] [place] [address] 07/09/2025 12:45 PM SUPPLY TEACHER Therapy Visit [facility] Rehabilitation Services [facility] 150 [place] [phone] Jason Alvares MD 420 [facility] 295 [place] [address] Chaya Castillo, OTR [facility] 150 [place] [address] 07/18/2025 3:00 PM SUPPLY TEACHER Office Visit [facility] Heart [address] [phone] Adonay Chapman APRN [facility] 500 [place] [address] 11/05/2025 12:[address] [facility] Lab [address] 1st [place] [phone] 11/05/2025 1:45 PM CDT Office Visit [facility] Dermatology [address] 3rd [place] [phone] Gavi Nieto PANavinC Dermatology [address] [place] [address] 11/20/2025 10:30 AM CDT Virtual Visit [address] [address] Marquise Hanley MD [address] [place] [address] 935385 documented as of this encounter Goals Goal [...] Total Score: 9 06/14/20 23 7:18 AM SUPPLY TEACHER documented as of this encounter Care Teams Title One Reading Teacher Relationship Specialty Start Date End Date Rio Jaquez MD [address] [place] [address] 24998 PCP - General Family Practice 12/02/10 07/13/24 Omar Carmona MD [address] [place] [address] 26456 PCP - General Family Medicine 07/14/24 Barry Kilpatrick MD [address] [place] [address] [id number] [place], [place] 234705 Neurology 07/19/14 Michelle Henderson I, TANIA Nurse Coordinator Neurology 07/19/14 Rio Jaquez MD [address] [place] [address] 916015 Family Practice 10/15/14 Jemima Jaramillo MD shut off worker 11/20/14 Kelley Chin, TANIA [address] [phone] Nurse Coordinator Cardiology 11/04/15 Sydnee Saleem MD 420 [facility] 508 [place], [place] 154635 Cardiology 11/04/15 Karlene Moya MD 516 [place], [place] 820815 MD Ophthalmology 06/24/17 Wilbert Quintero, OD 909 [place], [place] 114205 Optometry 06/24/17 Rod Gauthier DPM 909 [place], [place] 721685 Public Services Librarian Primary Podiatric Medicine 06/21/18 Jan Mahmood MD 6 [facility] 2A [place], [place] [address]1985 MD Gastroenterology 11/05/20 Brandt Quintana MD [facility] [place] [address] Resident 11/05/20 Jan Mahmood MD 6 [facility] 2A [place], [place] 809965 Assigned Gastroenterology Provider 12/01/20 Rio Jaquez MD 909 [facility] 4 [place], [place] 834435 Assigned PCP 11/17/20 09/30/24 Dom Eason MD 717 [facility] 353 [place], [place] 121484 Internal Medicine 12/02/20 Jayla Plaza, RN Specialty Diesel Truck Crane Operator Hepatology 01/09/21 02/13/24 Jaimie Vernon, TANIA Specialty Diesel Truck Crane Operator Cardiology 10/28/21 Marquise Hanley MD [address] [place] [address] 96272 Endocrinology, Diabetes, and Metabolism 03/05/22 Vlad Ramey MD [address] [place] [address] 41487 Cardiovascular Disease 05/07/22 Joesph Crowe MD [address] [place] [address] 35514 Surgery 05/07/22 Michelle Padilla RN Specialty Diesel Truck Crane Operator Cardiology 07/03/22 Marquise Hanley MD [address] [place] [address]32 Assigned Endocrinology Provider 08/15/22 Wagner Oliver MD [address] [place] [address] Critical Care 12/15/22 Laura Epperson NP [address] [place] [address] 1932 [place] [address] Assigned Nephrology Provider 02/20/23 08/30/24 Joesph Crowe MD [address] [place] [address] 65589 Surgery 03/17/23 Joesph Crowe MD [address] [place] [address] 38132 Assigned Surgical Provider 04/03/23 09/30/24 Adonay Haq MD [address] [place] [address]37 Internal Medicine 06/14/23October, Denilson Jackson MD 6405 [facility] [address] [place], [place] 904655 Assigned Heart and Vascular Provider 05/29/23 11/28/24 Jason Alvares MD [address] [place] [address] 937915 Assigned Neuroscience Provider 05/15/23 11/28/24 Ruth Riddle DPM, Podiatry/Foot and Ankle Surgery [address] [place] [address] [place] [address] 827757 Assigned Musculoskeletal Provider 10/22/23 Jignesh Mathias MD [address] [place] [address] 21402 Gastroenterology 09/25/24 Adonay Haq MD [address] [place] [address] 677565 Assigned PCP 10/01/24 12/28/24 Omar Carmona MD [address] [place] [address] 11877 Assigned PCP 12/29/24 Jason Alvares MD 420 [facility] 295 [place] [address] Assigned Neuroscience Provider 12/29/24 Jignesh Mathias MD [address] [place] [address] 340825 Assigned Surgical Provider 12/29/24 Ayad Lopez, PhD LP 516 [place], [place] 600105 Assigned Behavioral Health Provider 02/28/25 Gavi Nieto, PANavinC [address] [place] [address] [phone] Physician Family Lawyer Dermatology 03/19/25 documented as of this encounter
--- OUTSIDE RECORDS SUMMARY | 2025-06-10 11:41 | XMS_ITS | Encounter Summary ---
Author Organization [facility] Address [address] [place] [address] 26052 Care Team Providers Care Logistics System Engineer Name Role Phone Rio Jaquez MD Primary Care Provider Barry Kilpatrick MD Unavailable Michelle Henderson I RN Unavailable [phone] Rio Jaquez MD Unavailable +[phone] Jemima Jaramillo MD Unavailable Unavai eKlley Bautista RN Unavailable [phone] Sydnee Saleem MD Unavailable +[phone] Karlene Moya MD Unavailable [phone] Wilbert Quintero OD Unavailable +[phone] Rod Gauthier DPM Unavailable [phone] Jan Mahmood MD Unavailable [phone] Brandt Quintana MD Unavailable Jan Mahmood MD Unavailable +[phone] Rio Jaquez MD Unavailable +[phone] Dom Eason MD Unavailable + [phone] [place], Jaimie RN Unavailable Unavailable Marquise Hanley MD Unavailable +[phone] Vlad Ramey MD Unavailable +[phone] Joesph Crowe MD Unavailable + [phone] Michelle Padilla RN Unavailable Unavaila ble Marquise Hanley MD Unavailable +[phone] Wagner Oliver MD Unavailable +[phone] Laura Epperson NP Unavailable +[phone] Joesph Crowe MD Unavailable +[phone] Joesph Crowe MD Unavailable + [phone] Adonay Haq MD Unavailable [phone] Denilson Srinivasan MD Unavailable + [phone] Jason Alvares MD Unavailable Ruth Riddle DPM, Podiatry /Foot and Ankle Surgery Unavailable Omar Carmona MD Primary Care Provider [phone] Jignesh Mathias MD Unavailable Adonay Haq MD Unavailable [phone] Omar Carmona MD Unavailable +[phone] Jason Alvares MD Unavailable Jignesh Mathias MD Unavailable Ayad Lopez PhD LP Unavailable +[phone] Gavi Nieto PA-C Unavailable [phone] Encounter Details Date Type Department Care Team (Late st Contact Info) Description 03/19/2024 [facility] Hepatology Clinic [address] [address] Jan Mahmood MD [address] [place] [address] Social History Tobacco Use Types Packs/Day Years [...] Answer Date Recorded PHQ-2 Score 2 02/28/2024 [facility] Occupat ional Health [...] Sex Assigned at Female 09/12/2020 12:05 PM BANK AND SAVINGS SECURITIES TRADER Legal Sex Female 3:26 AM BANK AND SAVINGS SECURITIES TRADER Gender Identity Female 09/12/2020 12:05 PM BANK AND SAVINGS SECURITIES TRADER Sexual Orientation Straight 12/19/2021 10 :44 AM CDT Occupation Industry Job Start Date Job End Date on disability for FMS Not on file Not on file Not on file disabled Not on file Not on file Not on file documented as of this encounter Plan of Treatment Upcoming Encounters Date Type Department Care Team (Late st Contact Info) Description 06/13/2025 6:00 PM BANK AND SAVINGS SECURITIES TRADER Ancillary Procedure [facility] Clinic [address] 1st [place] [address] Omar Carmona MD [address] [place] [address] 32565 06/14/2025 4:00 PM BANK AND SAVINGS SECURITIES TRADER Office Visit [facility] Primary Care [address] [phone] Omar Carmona MD [address] [place] [address] 395645 06/15/2025 12:45 PM BANK AND SAVINGS SECURITIES TRADER Therapy Visit [facility] [address] [facility] [place] [phone] Jason Alvares MD [address] [place] [address] Chaya Castillo, OTR [facility] [place] [facility] 150 [place], [place] 578757 06/19/2025 10:30 AM BANK AND SAVINGS SECURITIES TRADER Virtual Visit [facility] Primary Care [address] [phone] Omar Carmona MD [address] [place] [address] Gerson Santos [facility] 06/26/2025 11:00 AM BANK AND SAVINGS SECURITIES TRADER Therapy [facility] [address] [place] [phone] Jason Alvares MD [address] [place] [address] 251525 Chaya Castillo, OTR [facility] [place] [facility] [address] [place] [address] 07/09/2025 12:45 PM BANK AND SAVINGS SECURITIES TRADER Therapy Visit [facility] 150 [place] [address]937814 Jason Alvares MD 420 [facility] 295 [place] [address] Chaya Castillo, OTR [facility] 150 [place] [address] 07/18/2025 3:00 PM BANK AND SAVINGS SECURITIES TRADER Office Visit [facility] Heart [address] [phone] Adonay Chapman APRN [facility] 500 [place], [place] 297725 11/05/2025 12:30 PM CDT Lab [facility] Lab [address] 1st [place] [phone] 11/05/2025 1:45 PM CDT Office Visit [facility] Dermatology [address] 3rd [place] [phone] Gavi Nieto PANavinC Dermatology [address] [place] [address] 245[address] 11/20/2025 10:30 AM CDT Virtual Visit [address] [phone] Marquise Hanley MD [address] [place] [address] 48199 documented as of this encounter Goals Goal [...] documented as of this encounter Care Teams Logistics System Engineer Relationship Specialty Start Date End Date Rio Jaquez MD [address] [place] [address] 4 [place], [place] 141665 PCP - General Family Practice 12/02/10 07/13/24 Omar Carmona MD [address] [place] [address] 589255 PCP - General Family Medicine 07/14/24 Barry Kilpatrick MD [address] [place] [address] [id number] [place], [place] 476555 Neurology 07/19/14 Michelle Henderson I, RN Nurse Coordinator Neurology 07/19/14 Rio Jaquez MD [address] [place] [address] 228775 Family Practice 10/15/14 Jemima Jaramillo MD superannuation funds manager 11/20/14 Kelley Chin, TANIA [facility] [address] [place] [address] 470895 Nurse Coordinator Cardiology 11/04/15 Sydnee Saleem MD [address] [place] [address] 508 [place], [place] 396905 Cardiology 11/04/15 Karlene Moya MD [address] [place] [address] 428015 Ophthalmology 06/24/17 Wilbert Quintero OD [address] [place] [address] 00124 Optometry 06/24/17 Rod Gauthier DPM [address] [place] [address] 629915 Social Media Executive Primary Podiatric Medicine 06/21/18 Jan Mahmood MD [address] [place] [address] 032555 Gastroenterology 11/05/20 Brandt Quintana MD [address] [place] [address] Resident 11/05/20 Jan Mahmood MD [address] [place] [address] 059205 Assigned Gastroenterology Provider 12/01/20 Rio Jaquez MD [address] [place] [address] 619995 Assigned PCP 11/17/20 09/30/24 Dom Eason MD [address] 331964 Internal Medicine 12/02/20 Jaimie Vernon, RN Specialty Candlemaking Laborer Cardiology 10/28/21 Marquise Hanley MD [address] [place] [address] 17200 Endocrinology, Diabetes, and Metabolism 03/05/22 Vlad Ramey MD [address] [place] [address] 65814 Cardiovascular Disease 05/07/22 Joesph Crowe MD [address] [place] [address] 17237 Surgery 05/07/22 Michelle Padilla, RN Specialty Candlemaking Laborer Cardiology 07/03/22 Marquise Hanley MD [address] [place] [address]209 Assigned Endocrinology Provider 08/15/22 Wagner Oliver MD [address] [place] [address] Critical Care 12/15/22 Laura Epperson NP [address] [place] [address] 1932 [place] [address] Assigned Nephrology Provider 02/20/23 08/30/24 Joesph Crowe MD [address] [place] [address] 27982 Surgery 03/17/23 Joesph Crowe MD [address] [place] [address] 59159 Assigned Surgical Provider 04/03/23 09/30/24 Adonay Haq MD 909 [place] [address] Internal Medicine 06/14/23OctoberDenilson MD [address] [place] [address] Assigned Heart and Vascular Provider 05/29/23 11/28/24 Jason Alvares MD [address] [place] [address]247 Assigned Neuroscience Provider 05/15/23 11/28/24 Ruth Riddle DPM, Podiatry/Foot and Ankle Surgery [address] [place], [place] 422917 Assigned Musculoskeletal Provider 10/22/23 Jignesh Mathias MD [address] [place] [address] 08175 Gastroenterology 09/25/24 Adonay Haq MD [address] [place] [address] 23278 Assigned PCP 10/01/24 12/28/24 Omar Carmona MD [address] [place] [address] 75056 Assigned PCP 12/29/24 Jason Alvares MD [address] [place] [address] Assigned Neuroscience Provider 12/29/24 Jignesh Mathias MD [address] [place] [address] 34122 Assigned Surgical Provider 12/29/24 Ayad Lopez, PhD LP [address] [place] [address] Assigned Behavioral Health Provider 02/28/25 Gavi Nieto PANavinC [address] [place] [address] 13532 Physician Drafter (Cad) Electrical Dermatology 03/19/25 documented as of this encounter
--- OUTSIDE RECORDS SUMMARY | 2025-06-10 11:41 | XMS_ITS | Encounter Summary ---
Author Organization [facility] Address [address] [place] [address] Care Team Providers Care Parts Counter Salesperson Name Role Phone Rio Jaquez MD Primary Care Provider Barry Kilpatrick MD Unavailable Michelle Henderson RN Unavailable [phone] Rio Jaquez MD Unavailable [phone] Jmeima Jaramillo MD Unavailable Unavai Kelley Bautista RN Unavailable [phone] Sydnee Saleem MD Unavailable [phone] Karlene Moya MD Unavailable [phone] Wilbert Quintero OD Unavailable [phone] Rod Gauthier DPM Unavailable [phone] Nallely Hogue RN Unavailable Unavailable Larisa Vargas RN Unavailable Unavailable Francisco Lott MD Unavailable [phone] Greg Ortega MD Unavailable [phone] Jan Mahmood MD Unavailable [phone] Brandt Quintana MD Unavailable [phone] Jan Mahmood MD Unavailable Rio Jaquez MD Unavailable Dom Eason MD Unavailable [phone] Jayla Plaza RN Unavailable Jayla Plaza RN Unavailable Sydnee Saleem MD Unavailable Phan Coello MD Unavailable Unavailable Cristian Barragan MD Unavailable Dom Eason MD Unavailable [phone] Jaimie Vernon RN Unavailable Unavailable Ruth Riddle DPM, Podiatry /Foot and Ankle Surgery Unavailable Luis Arrington MD Unavailable Jason Alvares MD Unavailable Marquise Hanley MD Unavailable Vlad Ramey MD Unavailable Joesph Crowe MD Unavailable Luis Arrington MD Unavailable Michelle Padilla RN Unavailable Unavaila ble Vlad Ramey MD Unavailable Marquise Hanley MD Unavailable Dom Eason MD Unavailable Wagner Oliver MD Unavailable [phone] Laura Epperson NP Unavailable [phone] Thom Taveras MD Unavailable Joesph Crowe MD Unavailable Joesph Crowe MD Unavailable Adonay Haq MD Unavailable OctoberDenilson MD Unavailable [phone] Jason Alvares MD Unavailable Ruth Riddle DPM, Podiatry /Foot and Ankle Surgery Unavailable Omar Carmona MD Primary Care Provider [phone] Jignesh Mathias MD Unavailable Adonay Haq MD Unavailable [phone] Omar Carmona MD Unavailable Jason Alvares MD Unavailable Jignesh Mathias MD Unavailable Ayad Lopez PhD LP Unavailable [phone] Gavi Nieto PA-C Unavailable Reason for Visit * Reason Onset Date Comments lab orders 12/26/2020 Encounter Details Date Type Department Care Team (Late st Contact Info) Description 12/26/2020 [facility] Medical Advice [facility] Primary Care Clinic [address] [address] Rio Jaquez MD [address] [place] [address] lab orders Social History Tobacco Use [...] Assigned at Female 09/12/2020 12:05 PM MANAGER SIGN Legal Sex Female 3:26 AM MANAGER SIGN Gender Identity Female 09/12/2020 12:05 PM MANAGER SIGN Sexual Orientation Straight 12/19/2021 10 :44 AM [...] Contact Info) Description 06/13/2025 6:00 PM MANAGER SIGN Ancillary Procedure [facility] Imaging Center [facility] Clinic [address] [phone] Omar Carmona MD [address] [place] [address] 469345 06/14/2025 4:00 PM MANAGER SIGN Office Visit [facility] Primary Care [address] [address] Omar Carmona MD [address] [place] [address] 376035 06/15/2025 12:45 PM MANAGER SIGN Therapy Visit [facility] Rehabilitation Services [address] [phone] Jason Alvares MD [address] [place] [address] 295 [place], [place] 269645 Chaya Castillo, WESR [facility] 150 [place] [address] 06/19/2025 10:30 AM MANAGER SIGN Virtual Visit [facility] Primary Care [address] [phone] Omar Carmona MD [address] [place] [address] 816415 Gerson Santos, MORENO 06/26/2025 11:00 AM MANAGER SIGN Therapy Visit [address] [phone] Jason Alvares MD [address] [place] [address] 091525 Chaya Castillo, OTR [address] [address] 07/09/2025 12:45 PM MANAGER SIGN Therapy Visit [address] [phone] Jason Alvares MD [address] [place] [address] 276815 Chaya Castillo, OTR [address] [address] 07/18/2025 3:00 PM MANAGER SIGN Office Visit [facility] Heart [address] [phone] Adonay Chapman APRN [facility] 500 [place], [place] 522425 11/05/2025 12:[address] [facility] Lab [address] 1st [place] [phone] 11/05/2025 1:45 PM CDT Office Visit [facility] Dermatology Clinic [address] [place] [phone] Gavi Nieto PA-C Dermatology [address] [place] [address] 11/20/2025 10:30 AM CDT Virtual Visit [address] [place] [address] Marquise Hanley MD 9 [place] [address] documented as of this encounter Goals Goal [...] Total Score: 12 021 9:43 AM MANAGER SIGN documented as of this encounter Care Teams Parts Counter Salesperson Relationship Specialty Start Date End Date Rio Jaquez MD [address] [place] [address] [address] [place] [address] PCP - General Family Practice 12/02/10 07/13/24 Omar Carmona MD [address] [place] [address] PCP - General Family Medicine 07/14/24 Barry Kilpatrick MD [address] [place] [address] [id number] [place] [address] Neurology 07/19/14 Michelle Henderson I, RN Nurse Coordinator Neurology 07/19/14 Rio Jaquez MD [address] [address] Family Practice 10/15/14 Jemima Jaramillo MD provider enrollment specialist 11/20/14 Kelley Chin RN [facility] [address] [place], [place] [address] Nurse Coordinator Cardiology 11/04/15 Sydnee Saleem MD [address] [place] [address] 508 [place] [address] Cardiology 11/04/15 Karlene Moya MD [address] [place] [address] 416145 Ophthalmology 06/24/17 Wilbert Quintero, OD [address] [place] [address] 389395 Optometry 06/24/17 Rod Gauthier DPM [address] [place] [address] [phone] Lidar Scientist Primary Podiatric Medicine 06/21/18 Nallely Hogue, TANIA Registered Nurse 02/20/19 11/23/22 Larisa Vargas, TANIA Specialty Electric Stop Installer Cardiology 04/18/19 03/06/22 Francisco Lott MD [address] [place] [address] 88 [place], [place] 238555 Assigned Rheumatology Provider 05/31/20 12/13/21 Greg Ortega MD 9 [place] [address] Assigned Surgical Provider 06/23/20 12/06/21 Jan Mahmood MD [address] [place] [address] 2[address] [place] [address] Gastroenterology 11/05/20 Brandt Quintana MD [facility] [place] [address] Resident 11/05/20 Jan Mahmood MD [address] [place] [address] Assigned Gastroenterology Provider 12/01/20 Rio Jaquez MD [address] [place] [address] 4 [place] [address] Assigned PCP 11/17/20 09/30/24 Dom Eason MD [address] [place] [address] 353 [place] [address] Internal Medicine 12/02/20 Jayla Plaza, RN Specialty Electric Stop Installer Hepatology 01/09/21 02/13/24 Jayla Plaza, RN Specialty Electric Stop Installer Hepatology 01/10/21 01/10/21 Sydnee Saleem MD [address] [phone] Assigned Heart and Vascular Provider 02/02/21 07/24/22 Phan Coello MD Assigned Neuroscience Provider 02/21/21 11/22/21 Cristian Barragan MD 2945 [place] [address] Assigned Infectious Disease Provider 02/21/21 03/06/22 Dom Eason MD [address] [place] [address] 353 [place] [address] Assigned Nephrology Provider 04/20/21 01/02/22 Jaimie Vernon, TANIA Specialty Electric Stop Installer Cardiology 10/28/21 Ruth Riddle DPM, Podiatry/Foot and Ankle Surgery 03141 [facility] 300 [place] [address] Assigned Musculoskeletal Provider 11/30/21 09/30/23 Luis Arrington MD [address] [place] [address] Assigned Neuroscience Provider 11/23/21 01/02/22 Jason Alvares MD 420 [facility] 295 [place] [address] Assigned Neuroscience Provider 01/03/22 05/15/22 Marquise Hanley MD [address] [place] [address] Endocrinology, Diabetes, and Metabolism 03/05/22 Vlad Ramey MD [address] [place] [address] Cardiovascular Disease 05/07/22 Joesph Crowe MD 9 [place] [address] Surgery 05/07/22 Luis Arrington MD [address] [place] [address] Assigned Neuroscience Provider 05/16/22 05/14/23 Michelle Padilla, TANIA Specialty Electric Stop Installer Cardiology 07/03/22 Vlad Ramey MD [address] [place] [address] 300095 Assigned Heart and Vascular Provider 07/25/22 05/28/23 Marquise Hanley MD [address] [place] [address] 141915 Assigned Endocrinology Provider 08/15/22 Dom Eason MD 717 [facility] [place] [address] [place], [place] 709334 Assigned Nephrology Provider 11/28/22 02/19/23 Wagner Oliver MD [address] [place] [address] Critical Care 12/15/22 Laura Epperson NP 717 [facility] [address] [place] [address] Assigned Nephrology Provider 02/20/23 08/30/24 Thom Taveras MD [address] [facility], [address] [place], [place] 787284 Assigned Cancer Care Provider 02/06/23 08/20/23 Joesph Crowe MD [address] [place] [address] MD Surgery 03/17/23 Joesph Crowe MD [address] [place] [address] Assigned Surgical Provider 04/03/23 09/30/24 Adonay Haq MD [address] [place] [address] 364025 Internal Medicine 06/14/23October, Denilson Jackson MD 6405 [facility] Black [address] 483825 Assigned Heart and Vascular Provider 05/29/23 11/28/24 Jason Alvares MD [address] [place] [address] 434515 Assigned Neuroscience Provider 05/15/23 11/28/24 Ruth Riddle DPM, Podiatry/Foot and Ankle Surgery 37127 [facility] 300 [place] [address] Assigned Musculoskeletal Provider 10/22/23 Jignesh Mathias MD [address] [place] [address] 568155 Gastroenterology 09/25/24 Adonay Haq MD [address] [place] [address] 077165 Assigned PCP 10/01/24 12/28/24 Omar Carmona MD [address] [place] [address] Assigned PCP 12/29/24 Jason Alvares MD [address] [place] [address] Assigned Neuroscience Provider 12/29/24 Jignesh Mathias MD [address] [place] [address] Assigned Surgical Provider 12/29/24 Ayad Lopez, PhD LP [address] [place] [address] Assigned Behavioral Health Provider 02/28/25 Gavi Nieto, PA-C [address] [place] [address] Physician Forms Builder Dermatology 03/19/25 documented as of this encounter
--- OUTSIDE RECORDS SUMMARY | 2025-06-10 11:41 | XMS_ITS | Encounter Summary ---
Author Organization [facility] Address [address] [place] [address] Care Team Providers Care Broadcast Traffic Coordinator Name Role Phone Rio Jaquez MD Primary Care Provider Barry Kilpatrick MD Unavailable Michelle Henderson RN Unavailable [phone] Rio Jaquez MD Unavailable [phone] Jemima Jaramillo MD Unavailable Unavai Kelley Bautista RN Unavailable [phone] Sydnee Saleem MD Unavailable [phone] Karlene Moya MD Unavailable [phone] Wilbert Quintero OD Unavailable [phone] Rod Gauthier DPM Unavailable [phone] Nallely Hogue RN Unavailable Unavailable Larisa Vargas RN Unavailable Unavailable Francisco Lott MD Unavailable [phone] Greg Ortega MD Unavailable [phone] Jan Mahmood MD Unavailable [phone] Brandt Quintana MD Unavailable [phone] Jan Mahmood MD Unavailable Rio Jaquez MD Unavailable Dom Eason MD Unavailable [phone] Jayla Plaza RN Unavailable Jayla Plaza RN Unavailable Sydnee Saleem MD Unavailable Phan Coello MD Unavailable Unavailable Cristian Barragan MD Unavailable Dom Eason MD Unavailable [phone] Jaimie Vernon RN Unavailable Unavailable Ruth Riddle DPM, Podiatry /Foot and Ankle Surgery Unavailable Luis Arrington MD Unavailable Jason Alvares MD Unavailable Marquise Hanley MD Unavailable Vlad Ramey MD Unavailable Joesph Crowe MD Unavailable Luis Arrington MD Unavailable Michelle Padilla RN Unavailable Unavaila ble Vlad Ramey MD Unavailable Marquise Hnaley MD Unavailable Dom Eason MD Unavailable Wagner Oliver MD Unavailable [phone] Laura Epperson NP Unavailable [phone] Thom Taveras MD Unavailable Joesph Crowe MD Unavailable Joesph Crowe MD Unavailable Adonay Haq MD Unavailable OctoberDenilson MD Unavailable Jason Alvares MD Unavailable Ruth Riddle DPM, Podiatry /Foot and Ankle Surgery Unavailable Omar Carmona MD Primary Care Provider [phone] Jignesh Mathias MD Unavailable Adonay Haq MD Unavailable [phone] Omar Carmona MD Unavailable [phone] Jason Alvares MD Unavailable Jignesh Mathias MD Unavailable Ayad Lopez PhD LP Unavailable Gavi Nieto PA-C Unavailable Encounter Details Date Type Department Care Team (Late st Contact Info) Description 01/07/2021 My[facility] Medical Advice [facility] Hepatology Clinic [address] [phone] Jan Mahmood MD [address] [place] [address] Social History Tobacco Use Types Packs/Day [...] at Female 09/12/2020 12:05 PM OPERATING ROOM REGISTERED NURSE Legal Sex Female 3:26 AM OPERATING ROOM REGISTERED NURSE Gender Identity Female 09/12/2020 12:05 PM OPERATING ROOM REGISTERED NURSE Sexual Orientation Straight 12/19/2021 10 :44 [...] Info) Description 06/13/2025 6:00 PM OPERATING ROOM REGISTERED NURSE Ancillary Procedure [facility] Imaging Center CT Clinic [address] [phone] Omar Carmona MD [address] [place] [address] [phone] 06/14/2025 4:00 PM OPERATING ROOM REGISTERED NURSE Office Visit [facility] Primary Care [address] [phone] Omar Carmona MD [address] [place] [address] [phone] 06/15/2025 12:45 PM OPERATING ROOM REGISTERED NURSE Therapy Visit [facility] Rehabilitation Services [address] [phone] Jason Alvares MD 420 [facility] 295 [place], [place] 80147455 Chaya Castillo, OTR [address] [address] 06/19/2025 10:30 AM OPERATING ROOM REGISTERED NURSE Virtual Visit [facility] Primary Care [address] [phone] Omar Carmona MD [address] [place] [address] 643005 Gerson Santos RPH 06/26/2025 11:00 AM OPERATING ROOM REGISTERED NURSE Therapy Visit [facility] 150 [place] [phone] Jason Alvares MD [address] [place] [address] Chaya Castillo OTR [facility] 150 [place] [address] 07/09/2025 12:45 PM OPERATING ROOM REGISTERED NURSE Therapy Visit [facility] 150 [place] [phone] Jason Alvares MD [address] [place] [address] Chaya Castillo OTR [facility] 150 [place] [address] 07/18/2025 3:00 PM OPERATING ROOM REGISTERED NURSE Office Visit [facility] Heart [address] [phone] Adonay Chapman APRN [address] [address] 11/05/2025 12:30 PM CDT Lab [facility] Lab [address] [phone] 11/05/2025 1:45 PM CDT Office Visit [facility] Dermatology Clinic [address] 3rd [place] [phone] Gavi Nieto PA-C Dermatology [address] [place] [address] 11/20/2025 10:30 AM CDT Virtual Visit [address] [address] Marquise Hanley MD [address] [place] [address] 185185 documented as of this encounter Goals Goal [...] Depression Total Score: 12 021 9:43 AM OPERATING ROOM REGISTERED NURSE documented as of this encounter Care Teams Broadcast Traffic Coordinator Relationship Specialty Start Date End Date Rio Jaquez MD [address] [place] [address] [phone] PCP - General Family Practice 12/02/10 07/13/24 Omar Carmona MD [address] [place] [address] 145165 PCP - General Family Medicine 07/14/24 Barry Kilpatrick MD [address] [place] [address] [id number] [place], [place] 159845 Neurology 07/19/14 Michelle Henderson I, RN Nurse Coordinator Neurology 07/19/14 Rio Jaquez MD [address] [place] [address] 499385 Family Practice 10/15/14 Jemima Jaramillo MD wallpaper inspector and shipper 11/20/14 Kelley Chin, TANIA [facility] 909 [place], [place] 357115 Nurse Coordinator Cardiology 11/04/15 Sydnee Saleem MD [address] [place] [address] 508 [place], [place] 712985 Cardiology 11/04/15 Karlene Moya MD [address] [place] [address] 116555 Ophthalmology 06/24/17 Wilbert Quintero, OD [address] [place] [address] Optometry 06/24/17 Rod Gauthier DPM [address] [place] [address] Part Time Receptionist Primary Podiatric Medicine 06/21/18 Nallely Hogue, TANIA Registered Nurse 02/20/19 11/23/22 Larisa Vargas, TANIA Specialty Hat Blocker Cardiology 04/18/19 03/06/22 Francisco Lott MD [address] [place] [address] 161055 Assigned Rheumatology Provider 05/31/20 12/13/21 Greg Ortega MD [address] [place] [address] 573065 Assigned Surgical Provider 06/23/20 12/06/21 Jan Mahmood MD 516 [facility] 2A [place] [address] Gastroenterology 11/05/20 Brandt Quintana MD 1414 [place] [address] Resident 11/05/20 Jan Mahmood MD 516 [facility] 2A [place] [address] Assigned Gastroenterology Provider 12/01/20 Rio Jaquez MD 909 [facility] 4 [place], [place] 207455 Assigned PCP 11/17/20 09/30/24 Dom Eason MD 717 [facility] [place] 353 [place], [place] 855534 Internal Medicine 12/02/20 Jayla Plaza, RN Specialty Hat Blocker Hepatology 01/09/21 02/13/24 Jayla Plaza, RN Specialty Hat Blocker Hepatology 01/10/21 01/10/21 Sydnee Saleem MD 6550 [facility] [address] [place] [address] Assigned Heart and Vascular Provider 02/02/21 07/24/22 Phan Coello MD Assigned Neuroscience Provider 02/21/21 11/22/21 Cristian Barragan MD [address] [place] [address] Assigned Infectious Disease Provider 02/21/21 03/06/22 Dom Eason MD [address] [place] [address] 353 [place] [address] Assigned Nephrology Provider 04/20/21 01/02/22 Jaimie Vernon, TANIA Specialty Hat Blocker Cardiology 10/28/21 Ruth Riddle DPM, Podiatry/Foot and Ankle Surgery [address] [facility] [address] [address] Assigned Musculoskeletal Provider 11/30/21 09/30/23 Luis Arrington MD [address] [place] [address] Assigned Neuroscience Provider 11/23/21 01/02/22 Jason Alvares MD [address] [place] [address] 295 [place], [place] 019805 Assigned Neuroscience Provider 01/03/22 05/15/22 Marquise Hanley MD [address] [place] [address] Endocrinology, Diabetes, and Metabolism 03/05/22 Vlad Ramey MD [address] [place] [address]479 Cardiovascular Disease 05/07/22 Joesph Crowe MD [address] [place] [address] Surgery 05/07/22 Luis Arrington MD [address] [place] [address]21 Assigned Neuroscience Provider 05/16/22 05/14/23 Michelle Padilla, RN Specialty Hat Blocker Cardiology 07/03/22 Vlad Ramey MD [address] [place] [address] 655025 Assigned Heart and Vascular Provider 07/25/22 05/28/23 Marquise Hanley MD [address] [place] [address] 284795 Assigned Endocrinology Provider 08/15/22 Dom Eason MD [address] [place] [address] Assigned Nephrology Provider 11/28/22 02/19/23 Wagner Oliver MD 6401 [place] [address] Critical Care 12/15/22 Laura Epperson NP [address] [place] [address] 1932 [place] [address] Assigned Nephrology Provider 02/20/23 08/30/24 Thom Taveras MD [address] [place] [address]78 Assigned Cancer Care Provider 02/06/23 08/20/23 Joesph Crowe MD [address] [place] [address] Surgery 03/17/23 Joesph Crowe MD [address] [place] [address] 70709 Assigned Surgical Provider 04/03/23 09/30/24 Adonay Haq MD [address] [place] [address] Internal Medicine 06/14/23October, Denilson Jackson MD [address] [facility] [address] [place] [address] Assigned Heart and Vascular Provider 05/29/23 11/28/24 Jason Alvares MD [address] [place] [address] 295 [place] [address] Assigned Neuroscience Provider 05/15/23 11/28/24 Ruth Riddle DPM, Podiatry/Foot and Ankle Surgery [address] [place] [address] Assigned Musculoskeletal Provider 10/22/23 Jignesh Mathias MD [address] [place] [address] Gastroenterology 09/25/24 Adonay Haq MD [address] [place] [address] Assigned PCP 10/01/24 12/28/24 Omar Carmona MD [address] [place] [address] 083205 Assigned PCP 12/29/24 Jason Alvares MD [address] [place] [address] 520005 Assigned Neuroscience Provider 12/29/24 Jignesh Mathias MD [address] [place] [address] [phone] Assigned Surgical Provider 12/29/24 Ayad Lopez, PhD LP [address] [place] [address] Assigned Behavioral Health Provider 02/28/25 Gavi Nieto, PA-C [address] [place] [address] [phone] Physician Instructional Services Specialist Dermatology 03/19/25 documented as of this encounter
--- OUTSIDE RECORDS SUMMARY | 2025-06-10 11:41 | XMS_ITS | Encounter Summary ---
Author Organization [facility] Address [address] [place] [address] 23173 Care Team Providers Care Non Destructive Testing Inspector Name Role Phone Rio Jaqeuz MD Primary Care Provider Barry Kilpatrick MD Unavailable Michelle Henderson I RN Unavailable [phone] Rio Jaquez MD Unavailable [phone] Jemima Jaramillo MD Unavailable Unavai Kelley Bautista RN Unavailable [phone] Sydnee Saleem MD Unavailable [phone] Karlene Moya MD Unavailable Wilbert Quintero OD Unavailable +[phone] Rod Gauthier DPM Unavailable Jan Mahmood MD Unavailable [phone] Brandt Quintana MD Unavailable [phone] Jan Mahmood MD Unavailable [phone] Rio Jaquez MD Unavailable [phone] Dmo Eason MD Unavailable Jayla Plaza RN Unavailable +[phone] Jaimie Vernon RN Unavailable Unavailable Marquise Hanley MD Unavailable +[phone] Vlad Ramey MD Unavailable +[phone] Joesph Crowe MD Unavailable + [phone] Michelle Padilla RN Unavailable Unavaila ble Marquise Hanley MD Unavailable +[phone] Wagner Oliver MD Unavailable [phone] Laura Epperson NP Unavailable + [phone] Joesph Crowe MD Unavailable + [phone] Joesph Crowe MD Unavailable + [phone] Adonay Haq MD Unavailable [phone] Denilson Srinivasan MD Unavailable + [phone] Jason Alvares MD Unavailable Ruth Riddle DPM, Podiatry /Foot and Ankle Surgery Unavailable Omar Carmona MD Primary Care Provider [phone] Jignesh Mathias MD Unavailable Adonay Haq MD Unavailable [phone] Omar Carmona MD Unavailable [phone] Jason Alvares MD Unavailable Jignesh Mathias MD Unavailable Ayad Lopez PhD LP Unavailable [phone] Gavi Nieto PA-C Unavailable [phone] Encounter Details Date Type Department Care Team (Late st Contact Info) Description 02/04/2024 [facility] Hepatology [address] [phone] Jan Mahmood MD 6 [facility] [address] [place] [address] Social History Tobacco Use Types Packs/Day Years [...] Answer Date Recorded PHQ-2 Score 2 08/26/2023 [facility] - Occupational Stress [...] Sex Assigned at Female 09/12/2020 12:05 PM FABRICATION WELDER Legal Sex Female 3:26 AM FABRICATION WELDER Gender Identity Female 09/12/2020 12:05 PM FABRICATION WELDER Sexual Orientation Straight 12/19/2021 10 :44 AM CDT Occupation Industry Job Start Date Job End Date on disability for FMS Not on file Not on file Not on file disabled Not on file Not on file Not on file documented as of this encounter Plan of Treatment Upcoming Encounters Date Type Department Care Team (Late st Contact Info) Description 06/13/2025 6:00 PM FABRICATION WELDER Ancillary Procedure [address] [phone] Omar Carmona MD [address] [place] [address] [phone] 06/14/2025 4:00 PM FABRICATION WELDER Office Visit [facility] Primary Care [address] [phone] Omar Carmona MD [address] [place] [address] [phone] 06/15/2025 12:45 PM FABRICATION WELDER Therapy Visit [facility] [address] [place] [phone] Jason Alvares MD [address] [place] [address] [phone] Chaya Castillo, OTR [facility] [address] [place], [place] [phone] 06/19/2025 10:30 AM FABRICATION WELDER Virtual Visit [facility] Care [address] [phone] Omar Carmona MD [address] [place] [address] [phone] Gerson Santos [facility] 06/26/2025 11:00 AM FABRICATION WELDER Therapy Visit [facility] [address] [place] [phone] Jason Alvares MD [address] [place] [address] [phone] Chaya Castillo, OTR [facility] [address] [place] [address] 07/09/2025 12:45 PM FABRICATION WELDER Therapy Visit [facility] Rehabilitation Services [facility] [address] [place] [phone] Jason Alvares MD 420 [facility] [address] [place] [address] Chaya Castillo, OTR [facility] [address] [place] [address] 07/18/2025 3:00 PM FABRICATION WELDER Office Visit [facility] Heart [address] [phone] Adonay Chapman APRN [facility] [address] [place] [address] 11/05/2025 12:30 PM CDT Lab [facility] Lab [address] [place] [phone] 11/05/2025 1:45 PM CDT Office Visit [facility] Dermatology [address] [place] [phone] Gavi Nieto PANavinC Dermatology [address] [place] [address] 11/20/2025 10:30 AM CDT Virtual Visit [address] [phone] Marquise Hanley MD [address] [place] [address] [phone] documented as of this encounter Goals Goal [...] Total Score: 9 06/14/20 23 7:18 AM FABRICATION WELDER documented as of this encounter Care Teams Non Destructive Testing Inspector Relationship Specialty Start Date End Date Rio Jaquez MD [address] [place] [address] PCP - General Family Practice 12/02/10 07/13/24 Omar Carmona MD [address] [place] [address] PCP - General Family Medicine 07/14/24 Barry Kilpatrick MD [address] [place] [address] [id number] [place], [place] [phone] Neurology 07/19/14 Michelle Henderson I, TANIA Nurse Coordinator Neurology 07/19/14 Rio Jaquez MD [address] [place] [address] [phone] Family Practice 10/15/14 Jemima Jaramillo MD gear inspector 11/20/14 Kelley Chin, TANIA [address] [phone] Nurse Coordinator Cardiology 11/04/15 Sydnee Saleem MD [address] [facility] [address] [place], [place] [phone] Cardiology 11/04/15 Karlene Moya MD [address] [place], [place] [phone] MD Ophthalmology 06/24/17 Wilbert Quintero, OD [address] [place], [place] 558125 Optometry 06/24/17 Rod Gauthier DPM [address] [place], [place] 370925 Tanker Truck Driver Primary Podiatric Medicine 06/21/18 Jan Mahmood MD 6 [facility] 2A [place], [place] [phone] MD Gastroenterology 11/05/20 Brandt Quintana MD [facility]4 [place] [address] Resident 11/05/20 Jan Mahmood MD 6 [facility] [address] [place], [place] 6[address]65 Assigned Gastroenterology Provider 12/01/20 Rio Jaquez MD 909 [facility] 4 [place], [place] 833505 Assigned PCP 11/17/20 09/30/24 Dom Eason MD 717 [facility] [address] [place], [place] 565654 Internal Medicine 12/02/20 Jayla Plaza, RN [employer] Hepatology 01/09/21 02/13/24 Jaimie Vernon, TANIA [employer] Cardiology 10/28/21 Marquise Hanley MD [address] [place] [address] Endocrinology, Diabetes, and Metabolism 03/05/22 Vlad Ramey MD [address] [place] [address] Cardiovascular Disease 05/07/22 Joesph Crowe MD [address] [place] [address] Surgery 05/07/22 Michelle Padilla RN [employer] Cardiology 07/03/22 Marquise Hanley MD [address] [place] [address] Assigned Endocrinology Provider 08/15/22 Wagner Oliver MD [address] [place] [address] Critical Care 12/15/22 Laura Epperson NP [address] [place] [address] [address] [place] [address] Assigned Nephrology Provider 02/20/23 08/30/24 Joesph Crowe MD [address] [place] [address] Surgery 03/17/23 Joesph Crowe MD [address] [place] [address] Assigned Surgical Provider 04/03/23 09/30/24 Adonay Haq MD [address] [place] [address] Internal Medicine 06/14/23October, Denilson Jackson MD [address] [facility] [address] [place], [place] 671525 Assigned Heart and Vascular Provider 05/29/23 11/28/24 Jason Alvares MD [address] [place] [address] [phone] Assigned Neuroscience Provider 05/15/23 11/28/24 Ruth Riddle DPM, Podiatry/Foot and Ankle Surgery [address] [place]IG[place]Z [address] [place] [address] [phone] Assigned Musculoskeletal Provider 10/22/23 Jignesh Mathias MD [address] [place] [address] Gastroenterology 09/25/24 Adonay Haq MD [address] [place] [address] [phone] Assigned PCP 10/01/24 12/28/24 Omar Carmona MD [address] [place] [address] 11986 Assigned PCP 12/29/24 Jason Alvares MD 420 [facility] 295 [place] [address] Assigned Neuroscience Provider 12/29/24 Jignesh Mathias MD [address] [place] [address] [phone] Assigned Surgical Provider 12/29/24 Ayad Lopez, PhD LP [address] [place], [place] 665795 Assigned Behavioral Health Provider 02/28/25 Gavi Nieto, PANavinC [address] [place] [address] [phone] Physician Finish Mender Dermatology 03/19/25 documented as of this encounter
--- NOTE | 2025-06-10 11:45 | CRLHL7_ITS ---
For Patients: As a result of the Century Cures Act, medical imaging exams and procedure reports are released immediately into your electronic medical record. You may view this report before your referring provider. If you have questions, please contact your health care provider. Indication: Epigastric abdominal and lower abdominal pain Technique: Volumetric multidetector CT images of the abdomen and pelvis were obtained after the administration of intravenous contrast. 57 centimeters Isovue 370 low osmolar intravenous contrast Comparison: CT abdomen and pelvis with contrast May 14, 2024 Findings: There is small right basilar pleural effusion with adjacent compressive atelectasis. The liver demonstrates a cirrhotic liver contour with trace perihepatic fluid. There is demonstration of mild heterogeneous attenuation. Markedly dilated portal vein with a large dilated, recanalized umbilical vein with caput medusa changes similar to previous exam. No evidence of portal vein thrombus. The gallbladder is unremarkable without evidence of radiopaque calculus. There is no significant common biliary ductal dilatation or abrupt cut off. The spleen is normal in enhancement and size. There is a moderately distended stomach and proximal duodenum. There is mild pancreatic atrophy with minimal pancreatic dilatation. The adrenal glands are unremarkable. The kidneys demonstrate preserved corticomedullary differentiation without evidence of obstructive uropathy. Moderate stool is seen throughout the colon with demonstration of a markedly dilated fluid-filled mid to distal small bowel with demonstration of likely transition point in the low midline abdomen seen on series 4, image 66. There is an additional area of focal thickening and questionable stricture appreciated on series 4, image 52. The appendix is not well visualized. There is no significant mesenteric, retroperitoneal, or pelvic sidewall lymph nodes. The aorta is nonaneurysmal. There is no significant atherosclerotic disease appreciated. The solid pelvic viscera are grossly unremarkable. There is no free fluid or free air. The anterior abdominal wall is intact without significant hernias. The lumbar vertebral body heights are grossly maintained with stable endplate deformity of the superior T12 endplate. Impression: 1. Interval development of markedly dilated fluid-filled proximal to mid small bowel including the duodenum jejunum and likely proximal ileum consistent with bowel obstruction with transition points appreciated in the low midline abdomen seen on series 4, image 66 with additional questionable peristalsis and/or stricture appreciated on series 4 image 52. 2. Demonstration of a macrolobular liver commensurate with likely cirrhotic changes with redemonstration of extensive portal vein hypertension sequela with large recanalized umbilical vein and trace perihepatic ascites. Minimal right basilar pleural effusion is appreciated. Please note that all CT scans at this facility use dose modulation, iterative reconstruction, and/or weight-based dosing when appropriate to reduce radiation dose to as low as reasonably achievable. Dictated by Mike Wayne MD @ 06/10/2025 1:36:18 PM (Electronically Signed)
--- NOTE | 2025-06-10 11:47 | ED.NAVMDI ---
HPI - Nausea/Vomiting/Diarrhea General Date Seen: 06/10/25 Chief complaint: Nausea/Vomiting Stated complaint: Vomiting Time Seen by Provider: 06/10/25 11:36 Source: patient Mode of arrival: ambulatory Limitations: no limitations History of Present Illness HPI Narrative: Patient is a 54-year-old female presenting for epigastric pain and concerns for pancreatitis. She is here couple days ago and diagnosed with pancreatitis. At that time she is feeling well enough to be discharged home with oral medications. She states have for about 12 hours but since then she has been unable to keep down any of her medications. She states she has a congenital heart defect and cirrhosis secondary to alcohol use. When she 1st came to emergency department pain was more in the right upper quadrant she thought it was from known gallstones. Ultrasound at the time was reassuring. After lab work she was discharged home. Today she has some mild epigastric pain was also having pain in her lower abdomen. Denies fevers, chills, chest pain, shortness of breath, diarrhea, constipation. No other concerns noted at this time. Related Data Home Medications ?Medication ?Instructions ?Recorded ?Confirmed THC 02/05/22 06/10/25 levetiracetam 1,000 mg tablet 1,000 mg PO BID 02/05/22 06/10/25 levothyroxine 50 mcg tablet 25 - 50 mcg PO DAILY 02/05/22 06/10/25 magnesium oxide 400 mg (241.3 mg 400 mg PO DAILY 02/05/22 06/10/25 magnesium) tablet melatonin 3 mg capsule 3 mg PO HS 02/05/22 06/10/25 omeprazole 40 mg capsule,delayed 40 mg PO DAILY 02/05/22 06/10/25 release pregabalin 50 mg capsule 50 mg PO BID 02/05/22 06/10/25 rifaximin 550 mg tablet (Xifaxan) 550 mg PO BID 02/05/22 06/10/25 cholecalciferol (vitamin D3) 50 50 mcg PO DAILY 03/24/25 06/10/25 mcg (2,000 unit) tablet (Vitamin D3) evolocumab 140 mg/mL subcutaneous 140 mg subcut Q14D 03/24/25 06/10/25 pen injector (Federica Adames) ferrous gluconate 324 mg (38 mg 324 mg PO DAILY 03/24/25 06/10/25 iron) tablet hydroxyzine HCl 25 mg tablet 25 - 50 mg PO Q8H PRN anxiety 03/24/25 06/10/25 psyllium 1 tbsp PO QAM 03/24/25 06/10/25 thiamine mononitrate (vit B1) 100 100 mg PO DAILY 03/24/25 06/10/25 mg tablet albuterol sulfate 90 mcg/actuation 2 puff inhalation Q6H PRN wheezing 06/10/25 06/10/25 aerosol inhaler (Ventolin HFA) ascorbic acid (vitamin C) 500 mg 500 mg PO DAILY 06/10/25 06/10/25 tablet Previous Rx's ?Medication ?Instructions ?Recorded levetiracetam 250 mg tablet 250 mg PO BID #60 tabs 08/31/24 (Keppra) oxycodone-acetaminophen 5 mg-325 1 - 2 tab PO Q4-6H PRN pain #6 tabs 06/09/25 mg tablet (Endocet) Allergies Allergy/AdvReac Type Severity Reaction Status Date / Time cephalexin Allergy Severe Anaphylaxis Verified 06/10/25 12:41 duloxetine Allergy Severe Anaphylaxis Verified 06/10/25 12:41 Pertussis Vaccines Allergy Severe Anaphylaxis Verified 06/10/25 12:41 Mbiqjze-[id number]-XfI Reductase Allergy Severe elevated Verified 06/10/25 12:41 Inhibitor LFT Sulfa (Sulfonamide Allergy Severe Anaphylaxis Verified 06/10/25 12:41 Antibiotics) latex Allergy Mild Rash Verified 06/10/25 12:41 codeine Allergy Unknown Verified 06/10/25 12:41 gabapentin AdvReac Mild Verified 06/10/25 12:41 Review of Systems Status of ROS: Reports: 10 or more systems reviewed and unremarkable except as noted in History and below [facility] Medical History (Updated 06/10/25 @ 17:49 by Orestes Adams MD) Protein-calorie malnutrition, moderate ?E44.0 - Moderate protein-calorie malnutrition (ICD-10) Clotting disorder ?D68.9 - Coagulation defect, unspecified (ICD-10) Sarcoidosis ?D86.9 - Sarcoidosis, unspecified (ICD-10) MRSA infection ?A49.02 - Methicillin resistant Staphylococcus aureus infection, unspecified site (ICD-10) Acute tubular necrosis ?N17.0 - Acute kidney failure with tubular necrosis (ICD-10) PFO (patent foramen ovale) ?Q21.12 - Patent foramen ovale (ICD-10) CKD (chronic kidney disease) stage 2, GFR 60-89 ml/min ?N18.2 - Chronic kidney disease, stage 2 (mild) (ICD-10) Ecchymosis ?R58 - Hemorrhage, not elsewhere classified (ICD-10) Subdural hemorrhage ?I62.00 - Nontraumatic subdural hemorrhage, unspecified (ICD-10) Seizures, post-traumatic ?R56.1 - Post traumatic seizures (ICD-10) Tachycardia ?R00.0 - Tachycardia, unspecified (ICD-10) Abdominal bloating ?R14.0 - Abdominal distension (gaseous) (ICD-10) Acute on chronic diastolic (congestive) heart failure ?I50.33 - Acute on chronic diastolic (congestive) heart failure (ICD-10) Cirrhosis of liver ?K74.60 - Unspecified cirrhosis of liver (ICD-10) Metabolic encephalopathy ?G93.41 - Metabolic encephalopathy (ICD-10) Edentulous ?K08.109 - Complete loss of teeth, unspecified cause, unspecified class (ICD-10) Mixed anxiety and depressive disorder ?F41.8 - Other specified anxiety disorders (ICD-10) Generalized muscle weakness ?M62.81 - Muscle weakness (generalized) (ICD-10) Primary insomnia ?F51.01 - Primary insomnia (ICD-10) Lipodystrophy ?E88.1 - Lipodystrophy, not elsewhere classified (ICD-10) Tinea corporis ?B35.4 - Tinea corporis (ICD-10) Vitamin B12 deficiency ?E53.8 - Deficiency of other specified B group vitamins (ICD-10) Folate deficiency ?E53.8 - Deficiency of other specified B group vitamins (ICD-10) Diffuse connective tissue disease ?M35.9 - Systemic involvement of connective tissue, unspecified (ICD-10) Uterine leiomyoma ?D25.9 - Leiomyoma of uterus, unspecified (ICD-10) Hemorrhage into subarachnoid space of neuraxis ?I60.9 - Nontraumatic subarachnoid hemorrhage, unspecified (ICD-10) Steatosis of liver ?K76.0 - Fatty (change of) liver, not elsewhere classified (ICD-10) Peripheral nerve disease ?G62.9 - Polyneuropathy, unspecified (ICD-10) Cyst, ovarian ?N83.209 - Unspecified ovarian cyst, unspecified side (ICD-10) Obstructive sleep apnea ?G47.33 - Obstructive sleep apnea (adult) (pediatric) (ICD-10) Migraine ?G43.909 - Migraine, unspecified, not intractable, without status migrainosus (ICD-10) Hypertension ?I10 - Essential (primary) hypertension (ICD-10) Occipital headache ?R51.9 - Headache, unspecified (ICD-10) GERD (gastroesophageal reflux disease) ?K21.9 - Gastro-esophageal reflux disease without esophagitis (ICD-10) Disturbance in sleep behavior ?G47.9 - Sleep disorder, unspecified (ICD-10) MDD (major depressive disorder) ?F32.9 - Major depressive disorder, single episode, unspecified (ICD-10) Alcohol abuse ?F10.10 - Alcohol abuse, uncomplicated (ICD-10) Mediastinal lymphadenopathy ?R59.0 - Localized enlarged lymph nodes (ICD-10) Sensory ganglionopathy ?G54.9 - Nerve root and plexus disorder, unspecified (ICD-10) Secundum ASD ?Q21.1 - Atrial septal defect (ICD-10) Right ventricular enlargement ?I51.7 - Cardiomegaly (ICD-10) 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 - Partial anomalous pulmonary venous connection (ICD-10) Menorrhagia ?N92.0 - Excessive and frequent menstruation with regular cycle (ICD-10) 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 - Dry beriberi (ICD-10) Tear film insufficiency ?H04.129 - Dry eye syndrome of unspecified lacrimal gland (ICD-10) Presbyopia ?H52.4 - Presbyopia (ICD-10) Bilateral myopia ?H52.13 - Myopia, bilateral (ICD-10) Hypothyroidism ?E03.9 - Hypothyroidism, unspecified (ICD-10) Dental decay ?K02.9 - Dental caries, unspecified (ICD-10) Fibroid ?D21.9 - Benign neoplasm of connective and other soft tissue, unspecified (ICD-10) Vitamin D deficiency ?E55.9 - Vitamin D deficiency, unspecified (ICD-10) Coccyx pain ?M53.3 - Sacrococcygeal disorders, not elsewhere classified (ICD-10) Essential hypertension ?I10 - Essential (primary) hypertension (ICD-10) Dysthymic disorder ?F34.1 - Dysthymic disorder (ICD-10) Generalized anxiety disorder ?F41.1 - Generalized anxiety disorder (ICD-10) Malnutrition ?E46 - Unspecified protein-calorie malnutrition (ICD-10) Myalgia and myositis Fibromyalgia ?M79.7 - Fibromyalgia (ICD-10) Nicotine dependence ?F17.200 - Nicotine dependence, unspecified, uncomplicated (ICD-10) Ataxia ?R27.0 - Ataxia, unspecified (ICD-10) Sarcoidosis of lung with sarcoidosis of lymph nodes ?D86.2 - Sarcoidosis of lung with sarcoidosis of lymph nodes (ICD-10) Peripheral neuropathy ?G62.9 - Polyneuropathy, unspecified (ICD-10) Surgical History Hx of hernia repair ?Z98.890 - Other specified postprocedural states (ICD-10) ?Z87.19 - Personal history of other diseases of the digestive system (ICD-10) History of appendectomy ?Z90.49 - Acquired absence of other specified parts of digestive tract (ICD-10) Social History What is your current living situation?: I presently have a place to live Problems where you live: pests, such as bugs, ants, or mice and lead paint or pipes In the past 12 months, utilities in danger of being shut off: no In past 12 months, lack of transportation kept you from medical appts, meetings, work, or getting things needed for daily living: no In the past 12 mos, have been you worried that your food would run out before you had money to buy more?: sometimes true In the past 12 mos, the food you bought just didn't last and you didn't have money to buy more?: never true Highest level of school completed/degree received: some college, no degree Smoking Status: Current every day smoker What tobacco products do you use: cigarettes Smoking packs per day: 1 Smoking cigarettes per day: 20.0 Years smoked: 43 Smoking pack-years: 43.00 Do you use any of these nicotine containing products: None Second hand tobacco smoke exposure: Yes How often do you have a drink containing alcohol: never How often do you have six or more drinks on one occasion: Never AUDIT-C Alcohol total score: 0 Non-prescribed substance use: denies use Non-prescribed substance use details: THC pills Caffeine: Yes How often does anyone, including family, friends and others, physically hurt you: unable to answer How often does anyone, including family, friends and others, insult or talk down to you: unable to answer How often does anyone, including family, friends and others, threaten you with harm: unable to answer How often does anyone, including family, friends and others, scream or curse at you: unable to answer service: No Health Related Social Needs: Inadequate housing (Z59.1) and food insecurity (Z59.41) Exam Narrative: Exam Narrative: Const: Well-nourished, Well-developed, in mild distress Eyes: PERRL, no conjunctival injection, and symmetrical lids HENT: Atraumatic external nose and ears. Moist mucous membranes. Neck: Symmetric, trachea midline, No thyromegaly. CVS: RRR, No murmurs or gallops. Peripheral pulses 2+ and equal in all extremities RESP: Unlabored respiratory effort. Clear to auscultation bilaterally. GI: Mild epigastric tenderness with more notable tenderness in the lower abdomen. Nondistended, No rebound or guarding. MSK:Extremities w/o deformity, Normal Active ROM Skin: Warm, Dry. No rashes or lesions. Neuro: Normal Muscle tone, No focal neurological deficits. Psych: Awake, Alert, & Oriented x3. Appropriate mood and affect. Const: Vital Signs, click to edit/add: Vital Signs - 24 hr 06/10/25 11:29 06/10/25 11:57 06/10/25 12:13 Temperature 98.1 F Pulse Rate 104 H 104 H Pulse Rate [Right Pulse Oximeter] 105 H Respiratory Rate 18 Blood Pressure Blood Pressure [Ri ght Upper Arm] 98/79 Pulse Oximetry 91 94 94 Oxygen Delivery Me thod Room Air 06/10/25 12:15 06/10/25 12:16 06/10/25 12:30 Temperature Pulse Rate 105 H 100 84 Pulse Rate [Right Pulse Oximeter] Respiratory Rate 14 Blood Pressure 98/68 Blood Pressure [Ri ght Upper Arm] Pulse Oximetry 94 93 92 Oxygen Delivery Me thod Room Air 06/10/25 12:31 06/10/25 13:01 06/10/25 13:17 Temperature Pulse Rate 79 84 92 Pulse Rate [Right Pulse Oximeter] Respiratory Rate 16 Blood Pressure 95/66 94/60 Blood Pressure [Ri ght Upper Arm] Pulse Oximetry 94 94 94 Oxygen Delivery Me thod Room Air 06/10/25 13:30 06/10/25 13:31 06/10/25 13:45 Temperature Pulse Rate 97 99 101 H Pulse Rate [Right Pulse Oximeter] Respiratory Rate 14 Blood Pressure 107/78 Blood Pressure [Ri ght Upper Arm] Pulse Oximetry 89 94 Oxygen Delivery Me thod Room Air 06/10/25 14:01 06/10/25 14:31 06/10/25 14:32 Temperature Pulse Rate 96 93 Pulse Rate [Right Pulse Oximeter] Respiratory Rate Blood Pressure 110/79 117/79 Blood Pressure [Ri ght Upper Arm] Pulse Oximetry 93 93 Oxygen Delivery Me thod 06/10/25 14:45 06/10/25 15:02 06/10/25 15:31 Temperature Pulse Rate 114 H 100 Pulse Rate [Right Pulse Oximeter] Respiratory Rate 16 Blood Pressure 126/101 H 110/77 Blood Pressure [Ri ght Upper Arm] Pulse Oximetry 94 Oxygen Delivery Me thod Room Air Course Vital Signs Vital signs: Initial Vital Signs Temperature 98.1 F 06/10/25 11:29 Temperature Source Temporal Artery Scan 06/10/25 11:29 Pulse Rate 105 H 06/10/25 11:29 Pulse Rhythm Regular 06/10/25 11:29 Pulse Strength 3+ Normal 06/10/25 11:29 Respiratory Rate 18 06/10/25 11:29 Blood Pressure 98/79 06/10/25 11:29 Blood Pressure Mean 85 06/10/25 11:29 Blood Pressure Position Semi-Fowlers 06/10/25 11:29 Pulse Oximetry 91 06/10/25 11:29 Oxygen Delivery Method Room Air 06/10/25 11:29 Vital Signs Temperature 98.1 F 06/10/25 11:29 Pulse Rate 105 H 06/10/25 11:29 Respiratory Rate 18 06/10/25 11:29 Blood Pressure 98/79 06/10/25 11:29 Pulse Oximetry 91 06/10/25 11:29 Oxygen Delivery Method Room Air 06/10/25 11:29 Temperature 98.1 F 06/10/25 11:29 Pulse Rate 68 06/10/25 16:27 Respiratory Rate 18 06/10/25 16:27 Blood Pressure 109/77 06/10/25 16:27 Pulse Oximetry 92 06/10/25 16:27 Oxygen Delivery Method Room Air 06/10/25 16:27 Medications Administered Medications: Generic Name Dose Route Start Last Admin Trade Name Freq PRN Reason Stop Dose Admin Ondansetron HCl 4 mg 06/10/25 16:01 06/10/25 17:06 Ondansetron 2 Mg/Ml Inj IVP 4 mg Q4H PRN Administration Nausea Discontinued Medications Generic Name Dose Route Start Last Admin Trade Name Freq PRN Reason Stop Dose Admin Lactated Ringer's 1,000 mls @ 1,000 mls/hr 06/10/25 11:43 06/10/25 12:07 Lactated Ringers 1000 Ml IV 06/10/25 12:42 1,000 mls/hr .Q1H ONE Administration Sodium Chloride 500 mls @ 500 mls/hr 06/10/25 16:01 06/10/25 17:29 0.9 % Sodium Chloride 500 Ml IV 06/10/25 17:00 500 mls/hr .Q1H ROCÍO Administration Morphine Sulfate 4 mg 06/10/25 11:43 06/10/25 12:07 Morphine 4 Mg/Ml Inj IVP 06/10/25 11:44 4 mg ONCE ONE Administration Morphine Sulfate 4 mg 06/10/25 14:30 06/10/25 14:42 Morphine 4 Mg/Ml Inj IVP 06/10/25 14:31 4 mg ONCE ONE Administration Ondansetron HCl 4 mg 06/10/25 11:43 06/10/25 12:07 Ondansetron 2 Mg/Ml Inj IVP 06/10/25 11:44 4 mg ONCE ONE Administration MDM - Nausea/Vomiting/Diarrhea MDM Narrative Medical decision making narrative: Patient is 54-year-old female returning for concerns of pancreatitis. She is diagnosed with pancreatitis a couple days ago but was doing well enough to be discharged. She is not able to tolerate any oral medications any more. She is having some mild epigastric pain for pain seems to be worse in the lower abdomen. Due to that I will do a CT scan with IV contrast for better evaluation of this I am delighted this or appendicitis. Also order a CBC, CMP, lipase. Morphine given for pain and Zofran given for nausea. Lab Data Labs: Lab Results 06/10/25 06/10/25 06/10/25 Range/Units 11:44 12:08 12:10 WBC 6.30 (4.50-11.00) K/uL RBC 6.58 H (4.00-5.20) m/uL Hgb 18.8 H (12.0-16.0) gm/dL Hct 54.5 H (33.0-51.0) % MCV 83 (80-100) fL MCH 29 (26-34) pg MCHC 35 (32-36) gm/dL RDW Coeff of Susanna 15.8 H (11.5-15.5) % Plt Count 122 L (140-440) K/uL Neut % (Auto) 77.4 H (42.0-72.0) % Lymph % (Auto) 11.0 L (20-44) % Carson % (Auto) 11.0 (0.0-11.0) % Eos % (Auto) 0.2 (0.0-7.0) % Baso % (Auto) 0.2 (0.0-3.0) % Neut # (Auto) 4.90 (1.7-7.0) K/uL Lymph # (Auto) 0.70 L (0.90-2.90) K/uL Carson # (Auto) 0.70 (0.00-0.90) K/UL Eos # (Auto) 0.01 (0.00-0.50) K/uL Baso # (Auto) 0.01 (0.00-0.30) K/uL Abs Immat Gran (auto) 0.01 (0.00-0.30) K/uL Imm/Tot Granulo (auto) 0.2 % INR 1.03 (0.91-1.10) Sodium 140 (135-149) mmol/L Potassium 4.2 (3.6-5.1) mmol/L Chloride 99 (96-114) mmol/L Carbon Dioxide 28 (20-32) mmol/L Anion Gap 13 (7-15) mEq/L BUN 31 H (7-30) mg/dL Creatinine 1.4 (0.5-1.5) mg/dL Estimated GFR 44 ml/min Glucose 105 (60-115) mg/dL Calcium 10.3 (8.4-10.6) mg/dL Total Bilirubin 2.9 H (0.1-1.5) mg/dL Direct Bilirubin 0.8 H (0.0-0.5) mg/dL AST 44 H (12-35) U/L ALT 28 (4-35) U/L Alkaline Phosphatase 43 (40-150) U/L Total Protein 6.8 (6.0-8.3) g/dL Albumin 4.0 (3.3-5.0) g/dL Lipase 100 (23-300) U/L Ethyl Alcohol < 0.01 (0.01-0.03) % Lab Acknowledgement Test Added Test Added POC Creatinine 1.6 H (0.6-1.3) mg/dl 06/10/25 Range/Units 13:05 WBC (4.50-11.00) K/uL RBC (4.00-5.20) m/uL Hgb (12.0-16.0) gm/dL Hct (33.0-51.0) % MCV (80-100) fL MCH (26-34) pg MCHC (32-36) gm/dL RDW Coeff of Susanna (11.5-15.5) % Plt Count (140-440) K/uL Neut % (Auto) (42.0-72.0) % Lymph % (Auto) (20-44) % Carson % (Auto) (0.0-11.0) % Eos % (Auto) (0.0-7.0) % Baso % (Auto) (0.0-3.0) % Neut # (Auto) (1.7-7.0) K/uL Lymph # (Auto) (0.90-2.90) K/uL Carson # (Auto) (0.00-0.90) K/UL Eos # (Auto) (0.00-0.50) K/uL Baso # (Auto) (0.00-0.30) K/uL Abs Immat Gran (auto) (0.00-0.30) K/uL Imm/Tot Granulo (auto) % INR (0.91-1.10) Sodium (135-149) mmol/L Potassium (3.6-5.1) mmol/L Chloride (96-114) mmol/L Carbon Dioxide (20-32) mmol/L Anion Gap (7-15) mEq/L BUN (7-30) mg/dL Creatinine (0.5-1.5) mg/dL Estimated GFR ml/min Glucose (60-115) mg/dL Calcium (8.4-10.6) mg/dL Total Bilirubin (0.1-1.5) mg/dL Direct Bilirubin (0.0-0.5) mg/dL AST (12-35) U/L ALT (4-35) U/L Alkaline Phosphatase (40-150) U/L Total Protein (6.0-8.3) g/dL Albumin (3.3-5.0) g/dL Lipase (23-300) U/L Ethyl Alcohol (0.01-0.03) % Lab Acknowledgement Test Added POC Creatinine (0.6-1.3) mg/dl
[2025-06-10] MEDS: LACTATED RINGERS 1000 ML 1,000 ML IV (12:07)
[2025-06-10] MEDS: MORPHINE 4 MG/ML INJ IVP ×3 (12:07→18:54)
[2025-06-10] MEDS: ONDANSETRON 2 MG/ML inj 4 MG IVP ×3 (12:07→21:52)
[2025-06-10 12:22] LABS: Creatinine, Point-of-Care* 1.6 mg/dl (0.6-1.3)
[2025-06-10 12:24] LABS: Hematocrit* 54.5 % (33.0-51.0); Hemoglobin* 18.8 gm/dL (12.0-16.0); Immature Granulocytes Abs Auto 0.01 K/uL (0.00-0.30); Immature Granulocytes Pct Auto 0.2 %; Mean Corpuscular HGB Conc 35 gm/dL (32-36); Mean Corpuscular Hemoglobin 29 pg (26-34); Mean Corpuscular Volume 83 fL (80-100); RDW Coefficient of Variation % 15.8 % (11.5-15.5); Red Blood Count* 6.58 m/uL (4.00-5.20); White Blood Count* 6.30 K/uL (4.50-11.00)
[2025-06-10 12:27] LABS: Lymphocytes Absolute Auto 0.70 K/uL (0.90-2.90); Slide Review Reflex No
[2025-06-10 12:56] LABS: Albumin* 4.0 g/dL (3.3-5.0); Chloride* 99 mmol/L (96-114); Sodium* 140 mmol/L (135-149)
[2025-06-10 12:57] LABS: Potassium* 4.2 mmol/L (3.6-5.1)
[2025-06-10 12:59] LABS: Alanine Aminotransferase* 28 U/L (4-35); Alkaline Phosphatase* 43 U/L (40-150); Anion Gap 13 mEq/L (7-15); Aspartate Amino Transferase* 44 U/L (12-35); Bilirubin Total* 2.9 mg/dL (0.1-1.5); Blood Urea Nitrogen* 31 mg/dL (7-30); Carbon Dioxide* 28 mmol/L (20-32); Creatinine* 1.4 mg/dL (0.5-1.5); Estimated Glomerular Filt Rate 44 ml/min
[2025-06-10 13:00] LABS: Calcium* 10.3 mg/dL (8.4-10.6); Glucose* 105 mg/dL (60-115); Total Protein* 6.8 g/dL (6.0-8.3)
[2025-06-10 13:28] LABS: Bilirubin Direct* 0.8 mg/dL (0.0-0.5)
[2025-06-10 14:54] LABS: Ethanol* < 0.01 % (0.01-0.03)
--- NOTE | 2025-06-10 14:57 | CRLHL7_ITS ---
For Patients: As a result of the Cures Act, medical imaging exams and procedure reports are released immediately into your electronic medical record. You may view this report before your referring provider. If you have questions, please contact your health care provider. INDICATION: NG tube verification TECHNIQUE: Single-view chest. COMPARISON: No comparison FINDINGS: NG tube in the proximal stomach. Dictated by Silvina Eugene MD @ 06/10/2025 3:38:33 PM (Electronically Signed)
[2025-06-10 15:00] LABS: INR 1.03 (0.91-1.10); Prothrombin Time 14.4 Seconds
--- NOTE | 2025-06-10 17:23 | PM.IMHP1 ---
Assessment and Plan Assessment and plan (1) Small bowel obstruction: Problem comment: - most likely secondary to intra-abdominal adhesions - conservative measurements for now: NG tube for suction placed, IV fluids, analgesics, antiemetics, ambulate in hallway as tolerated, serial assessments, serial laboratories - general surgery consultation Status: Acute (2) Cholelithiasis: Problem comment: - noted on ultrasound from yesterday. No apparent inflammation or obstruction Status: Acute (3) Cirrhosis of liver: Status: Acute (4) COPD (chronic obstructive pulmonary disease): Status: Acute (5) Tobacco use disorder: Problem comment: - normally smokes 1 pack per day, will utilize nicotine patch 21 mg daily while in hospital Status: Acute (6) Seizure disorder: Problem comment: - normally on levetiracetam 1250 mg twice daily orally, in-hospital change to 1000 mg IV twice daily Status: Acute (7) Dehydration: Problem comment: - IV fluids and monitor vitals including orthostatics Status: Acute (8) Hyperviscosity syndrome: Problem comment: - most likely in great measure due to acute dehydration status, need to monitor closely to make sure were not missing an acute hematologic etiology Status: Acute (9) Unsteady gait: Status: Acute (10) Protein-calorie malnutrition, moderate: Problem comment: - will ask Nutrition to follow while patient is in hospital Status: Acute Plan 1. Reviewed impression, plans, recommendations with patient and 2. Answered their questions to their satisfaction 3. They are agreeable with above stated plans and recommendations Total Time Spent Total Time Spent: 70 minutes Hospitalist- H&P: HPI History of Present Illness Date Seen: 06/10/25 Chief complaint: Vomiting and abdominal pain Narrative: Carol Arellano is a 54 year old woman presents to the emergency department today with complaint of increasing abdominal pain and nausea and vomiting since Wednesday night. Presented for assessment of the same on Wednesday, yesterday, and was thought possibly to have acute pancreatitis. Treated with IV fluids, analgesics, antiemetics and felt well enough to go home. After returning home her condition worsened again in that she presents today. Notes no bowel movement or flatus all day today. Last had anything to eat 2 days ago, Wednesday night. Trying to sip liquids but vomiting it up. Denies fevers, rigors, diaphoresis. No recent trauma or injury. No recent travel or illness. History of alcohol use disorder. Has not consumed any alcohol containing products for over 4 years. Is still smoking 1 pack per day of cigarettes. Does use medical marijuana. Does not smoke marijuana. Does not use any other street or recreational drugs. Does take her medications as prescribed. As a part of her assessment in the emergency department today a CT scan of the abdomen and pelvis was obtained which demonstrated small bowel obstruction: 1. Interval development of markedly dilated fluid-filled proximal to mid small bowel including the duodenum jejunum and likely proximal ileum consistent with bowel obstruction with transition points appreciated in the low midline abdomen seen on series 4, image 66 with additional questionable peristalsis and/or stricture appreciated on series 4 image 52. 2. Demonstration of a macrolobular liver commensurate with likely cirrhotic changes with redemonstration of extensive portal vein hypertension sequela with large recanalized umbilical vein and trace perihepatic ascites. Minimal right basilar pleural effusion is appreciated. Noteworthy is her prior history of appendectomy a 17 years of age. No other intra-abdominal surgeries. Review of Systems Status of ROS: Reports: 10 or more systems reviewed and unremarkable except as noted in History and below Medical Decision Making Medical Decision Making Code Status: Full resuscitation status During This Stay, Who Would You Like To Make Decisions For You In The Event You Are Unable To Make Them For Yourself?: Her , Du, . [facility] Medical History (Updated 06/10/25 @ 17:49 by Orestes Adams MD) Protein-calorie malnutrition, moderate ?E44.0 - Moderate protein-calorie malnutrition (ICD-10) Clotting disorder ?D68.9 - Coagulation defect, unspecified (ICD-10) Sarcoidosis ?D86.9 - Sarcoidosis, unspecified (ICD-10) MRSA infection ?A49.02 - Methicillin resistant Staphylococcus aureus infection, unspecified site (ICD-10) Acute tubular necrosis ?N17.0 - Acute kidney failure with tubular necrosis (ICD-10) PFO (patent foramen ovale) ?Q21.12 - Patent foramen ovale (ICD-10) CKD (chronic kidney disease) stage 2, GFR 60-89 ml/min ?N18.2 - Chronic kidney disease, stage 2 (mild) (ICD-10) Ecchymosis ?R58 - Hemorrhage, not elsewhere classified (ICD-10) Subdural hemorrhage ?I62.00 - Nontraumatic subdural hemorrhage, unspecified (ICD-10) Seizures, post-traumatic ?R56.1 - Post traumatic seizures (ICD-10) Tachycardia ?R00.0 - Tachycardia, unspecified (ICD-10) Abdominal bloating ?R14.0 - Abdominal distension (gaseous) (ICD-10) Acute on chronic diastolic (congestive) heart failure ?I50.33 - Acute on chronic diastolic (congestive) heart failure (ICD-10) Cirrhosis of liver ?K74.60 - Unspecified cirrhosis of liver (ICD-10) Metabolic encephalopathy ?G93.41 - Metabolic encephalopathy (ICD-10) Edentulous ?K08.109 - Complete loss of teeth, unspecified cause, unspecified class (ICD-10) Mixed anxiety and depressive disorder ?F41.8 - Other specified anxiety disorders (ICD-10) Generalized muscle weakness ?M62.81 - Muscle weakness (generalized) (ICD-10) Primary insomnia ?F51.01 - Primary insomnia (ICD-10) Lipodystrophy ?E88.1 - Lipodystrophy, not elsewhere classified (ICD-10) Tinea corporis ?B35.4 - Tinea corporis (ICD-10) Vitamin B12 deficiency ?E53.8 - Deficiency of other specified B group vitamins (ICD-10) Folate deficiency ?E53.8 - Deficiency of other specified B group vitamins (ICD-10) Diffuse connective tissue disease ?M35.9 - Systemic involvement of connective tissue, unspecified (ICD-10) Uterine leiomyoma ?D25.9 - Leiomyoma of uterus, unspecified (ICD-10) Hemorrhage into subarachnoid space of neuraxis ?I60.9 - Nontraumatic subarachnoid hemorrhage, unspecified (ICD-10) Steatosis of liver ?K76.0 - Fatty (change of) liver, not elsewhere classified (ICD-10) Peripheral nerve disease ?G62.9 - Polyneuropathy, unspecified (ICD-10) Cyst, ovarian ?N83.209 - Unspecified ovarian cyst, unspecified side (ICD-10) Obstructive sleep apnea ?G47.33 - Obstructive sleep apnea (adult) (pediatric) (ICD-10) Migraine ?G43.909 - Migraine, unspecified, not intractable, without status migrainosus (ICD-10) Hypertension ?I10 - Essential (primary) hypertension (ICD-10) Occipital headache ?R51.9 - Headache, unspecified (ICD-10) GERD (gastroesophageal reflux disease) ?K21.9 - Gastro-esophageal reflux disease without esophagitis (ICD-10) Disturbance in sleep behavior ?G47.9 - Sleep disorder, unspecified (ICD-10) MDD (major depressive disorder) ?F32.9 - Major depressive disorder, single episode, unspecified (ICD-10) Alcohol abuse ?F10.10 - Alcohol abuse, uncomplicated (ICD-10) Mediastinal lymphadenopathy ?R59.0 - Localized enlarged lymph nodes (ICD-10) Sensory ganglionopathy ?G54.9 - Nerve root and plexus disorder, unspecified (ICD-10) Secundum ASD ?Q21.1 - Atrial septal defect (ICD-10) Right ventricular enlargement ?I51.7 - Cardiomegaly (ICD-10) 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 - Partial anomalous pulmonary venous connection (ICD-10) Menorrhagia ?N92.0 - Excessive and frequent menstruation with regular cycle (ICD-10) 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 - Dry beriberi (ICD-10) Tear film insufficiency ?H04.129 - Dry eye syndrome of unspecified lacrimal gland (ICD-10) Presbyopia ?H52.4 - Presbyopia (ICD-10) Bilateral myopia ?H52.13 - Myopia, bilateral (ICD-10) Hypothyroidism ?E03.9 - Hypothyroidism, unspecified (ICD-10) Dental decay ?K02.9 - Dental caries, unspecified (ICD-10) Fibroid ?D21.9 - Benign neoplasm of connective and other soft tissue, unspecified (ICD-10) Vitamin D deficiency ?E55.9 - Vitamin D deficiency, unspecified (ICD-10) Coccyx pain ?M53.3 - Sacrococcygeal disorders, not elsewhere classified (ICD-10) Essential hypertension ?I10 - Essential (primary) hypertension (ICD-10) Dysthymic disorder ?F34.1 - Dysthymic disorder (ICD-10) Generalized anxiety disorder ?F41.1 - Generalized anxiety disorder (ICD-10) Malnutrition ?E46 - Unspecified protein-calorie malnutrition (ICD-10) Myalgia and myositis Fibromyalgia ?M79.7 - Fibromyalgia (ICD-10) Nicotine dependence ?F17.200 - Nicotine dependence, unspecified, uncomplicated (ICD-10) Ataxia ?R27.0 - Ataxia, unspecified (ICD-10) Sarcoidosis of lung with sarcoidosis of lymph nodes ?D86.2 - Sarcoidosis of lung with sarcoidosis of lymph nodes (ICD-10) Peripheral neuropathy ?G62.9 - Polyneuropathy, unspecified (ICD-10) Surgical History Hx of hernia repair ?Z98.890 - Other specified postprocedural states (ICD-10) ?Z87.19 - Personal history of other diseases of the digestive system (ICD-10) History of appendectomy ?Z90.49 - Acquired absence of other specified parts of digestive tract (ICD-10) Social History What is your current living situation?: I presently have a place to live Problems where you live: pests, such as bugs, ants, or mice and lead paint or pipes In the past 12 months, utilities in danger of being shut off: no In past 12 months, lack of transportation kept you from medical appts, meetings, work, or getting things needed for daily living: no In the past 12 mos, have been you worried that your food would run out before you had money to buy more?: sometimes true In the past 12 mos, the food you bought just didn't last and you didn't have money to buy more?: never true Highest level of school completed/degree received: some college, no degree Smoking Status: Current every day smoker What tobacco products do you use: cigarettes Smoking packs per day: 1 Smoking cigarettes per day: 20.0 Years smoked: 43 Smoking pack-years: 43.00 Do you use any of these nicotine containing products: None Second hand tobacco smoke exposure: Yes How often do you have a drink containing alcohol: never How often do you have six or more drinks on one occasion: Never AUDIT-C Alcohol total score: 0 Non-prescribed substance use: denies use Non-prescribed substance use details: THC pills Caffeine: Yes How often does anyone, including family, friends and others, physically hurt you: unable to answer How often does anyone, including family, friends and others, insult or talk down to you: unable to answer How often does anyone, including family, friends and others, threaten you with harm: unable to answer How often does anyone, including family, friends and others, scream or curse at you: unable to answer service: No Health Related Social Needs: Inadequate housing (Z59.1) and food insecurity (Z59.41) Meds Home Medications and Allergies Home Medications ?Medication ?Instructions ?Recorded ?Confirmed ?Type THC 02/05/22 06/10/25 History levetiracetam 1,000 mg tablet 1,000 mg PO BID 02/05/22 06/10/25 History levothyroxine 50 mcg tablet 25 - 50 mcg PO DAILY 02/05/22 06/10/25 History magnesium oxide 400 mg (241.3 mg 400 mg PO DAILY 02/05/22 06/10/25 History magnesium) tablet melatonin 3 mg capsule 3 mg PO HS 02/05/22 06/10/25 History omeprazole 40 mg capsule,delayed 40 mg PO DAILY 02/05/22 06/10/25 History release pregabalin 50 mg capsule 50 mg PO BID 02/05/22 06/10/25 History rifaximin 550 mg tablet (Xifaxan) 550 mg PO BID 02/05/22 06/10/25 History levetiracetam 250 mg tablet 250 mg PO BID #60 tabs 08/31/24 06/10/25 Rx (Keppra) cholecalciferol (vitamin D3) 50 50 mcg PO DAILY 03/24/25 06/10/25 History mcg (2,000 unit) tablet (Vitamin D3) evolocumab 140 mg/mL subcutaneous 140 mg subcut Q14D 03/24/25 06/10/25 History pen injector (Repatha SureClick) ferrous gluconate 324 mg (38 mg 324 mg PO DAILY 03/24/25 06/10/25 History iron) tablet hydroxyzine HCl 25 mg tablet 25 - 50 mg PO Q8H PRN anxiety 03/24/25 06/10/25 History psyllium 1 tbsp PO QAM 03/24/25 06/10/25 History thiamine mononitrate (vit B1) 100 100 mg PO DAILY 03/24/25 06/10/25 History mg tablet oxycodone-acetaminophen 5 mg-325 1 - 2 tab PO Q4-6H PRN pain #6 tabs 06/09/25 06/10/25 Rx mg tablet (Endocet) albuterol sulfate 90 mcg/actuation 2 puff inhalation Q6H PRN wheezing 06/10/25 06/10/25 History aerosol inhaler (Ventolin HFA) ascorbic acid (vitamin C) 500 mg 500 mg PO DAILY 06/10/25 06/10/25 History tablet Allergies Allergy/AdvReac Type Severity Reaction Status Date / Time cephalexin Allergy Severe Anaphylaxis Verified 06/10/25 12:41 duloxetine Allergy Severe Anaphylaxis Verified 06/10/25 12:41 Pertussis Vaccines Allergy Severe Anaphylaxis Verified 06/10/25 12:41 [id number]-LyX Reductase Allergy Severe elevated Verified 06/10/25 12:41 Inhibitor LFT Sulfa (Sulfonamide Allergy Severe Anaphylaxis Verified 06/10/25 12:41 Antibiotics) latex Allergy Mild Rash Verified 06/10/25 12:41 codeine Allergy Unknown Verified 06/10/25 12:41 gabapentin AdvReac Mild Verified 06/10/25 12:41 Exam Narrative: Exam Narrative: Examined the patient in her hospital room. Appropriately mildly anxious about her condition. Appears cachectic. Sunken eyes with prominent bony eminences. Thin extremities with diffuse muscle atrophy. Nasogastric tube in place with suction in canister containing 800 mL of a green, translucent fluid, still suctioning. Does not have icterus or jaundice. No petechiae, cyanosis, rashes, wounds. Cranial nerves 3-12 grossly normal. Dry buccal mucosa. Edentulous. No focal motor neurologic deficits. Skin is dry with tenting of the forearms. Neck is supple. Midline trachea. No head neck lymphadenopathy. No JVD or hepatojugular reflux. Lungs are clear to auscultation without wheezing, rhonchi, or rales. Chest wall excursions are full with respiratory efforts. No CVA tenderness to percussion. Heart tones with regular rhythm, normal S1-S2, without gallop, rub. Soft systolic murmur left sternal border. PMI not laterally displaced. Abdomen is distended with active bowel sounds, soft, with subjective discomfort to palpation in the epigastrium. No rebound or guarding. Const: Vital Signs, click to edit/add: Vital Signs - 24 hr 06/10/25 11:29 06/10/25 11:57 06/10/25 12:13 Temperature 98.1 F Pulse Rate 104 H 104 H Pulse Rate [Right Pulse Oximeter] 105 H Respiratory Rate 18 Blood Pressure Blood Pressure [Ri ght Upper Arm] 98/79 Pulse Oximetry 91 94 94 Oxygen Delivery Me thod Room Air 06/10/25 12:15 06/10/25 12:16 06/10/25 12:30 Temperature Pulse Rate 105 H 100 84 Pulse Rate [Right Pulse Oximeter] Respiratory Rate 14 Blood Pressure 98/68 Blood Pressure [Ri ght Upper Arm] Pulse Oximetry 94 93 92 Oxygen Delivery Me thod Room Air 06/10/25 12:31 06/10/25 13:01 06/10/25 13:17 Temperature Pulse Rate 79 84 92 Pulse Rate [Right Pulse Oximeter] Respiratory Rate 16 Blood Pressure 95/66 94/60 Blood Pressure [Ri ght Upper Arm] Pulse Oximetry 94 94 94 Oxygen Delivery In thod Room Air 06/10/25 13:30 06/10/25 13:31 06/10/25 13:45 Temperature Pulse Rate 97 99 101 H Pulse Rate [Right Pulse Oximeter] Respiratory Rate 14 Blood Pressure 107/78 Blood Pressure [Ri ght Upper Arm] Pulse Oximetry 89 94 Oxygen Delivery In thod Room Air 06/10/25 14:01 06/10/25 14:31 06/10/25 14:32 Temperature Pulse Rate 96 93 Pulse Rate [Right Pulse Oximeter] Respiratory Rate Blood Pressure 110/79 117/79 Blood Pressure [Ri ght Upper Arm] Pulse Oximetry 93 93 Oxygen Delivery Me thod 06/10/25 14:45 06/10/25 15:02 06/10/25 15:31 Temperature Pulse Rate 114 H 100 Pulse Rate [Right Pulse Oximeter] Respiratory Rate 16 Blood Pressure 126/101 H 110/77 Blood Pressure [Ri ght Upper Arm] Pulse Oximetry 94 Oxygen Delivery Me thod Room Air Hospitalist - H&P: Result Labs Labs: Short CBC 06/10/25 Range/Units 12:10 WBC 6.30 (4.50-11.00) K/uL Hgb 18.8 H (12.0-16.0) gm/dL Hct 54.5 H (33.0-51.0) % Plt Count 122 L (140-440) K/uL BMP 06/10/25 12:10 Sodium 140 Potassium 4.2 Chloride 99 Carbon Dioxide 28 BUN 31 H Creatinine 1.4 Glucose 105 Calcium 10.3 Liver Function 06/10/25 Range/Units 12:10 Total Bilirubin 2.9 H (0.1-1.5) mg/dL Direct Bilirubin 0.8 H (0.0-0.5) mg/dL AST 44 H (12-35) U/L ALT 28 (4-35) U/L Alkaline Phosphatase 43 (40-150) U/L Albumin 4.0 (3.3-5.0) g/dL Imaging CT scan of abdomen and pelvis: Radiologist's impression: 1. Interval development of markedly dilated fluid-filled proximal to mid small bowel including the duodenum jejunum and likely proximal ileum consistent with bowel obstruction with transition points appreciated in the low midline abdomen seen on series 4, image 66 with additional questionable peristalsis and/or stricture appreciated on series 4 image 52. 2. Demonstration of a macrolobular liver commensurate with likely cirrhotic changes with redemonstration of extensive portal vein hypertension sequela with large recanalized umbilical vein and trace perihepatic ascites. Minimal right basilar pleural effusion is appreciated.
[2025-06-10] MEDS: 0.9 % SODIUM CHLORIDE 500 ML 500 ML IV (17:29)
[2025-06-10] MEDS: LACTATED RINGERS 1000 ML 1,000 ML 125 ML IV (18:59)
[2025-06-10] MEDS: LEVETIRACETAM 1,000 mg/100 ml INFUSION 1000 MG IVPB (19:02)
--- NOTE | 2025-06-10 19:32 | PC.NURSE ---
Nursing Care Hours: [id number] Pt this shift calm and cooperative, oriented and drowsy. Placed on LIS upon arrival and 750ml output immediately. Fluids and meds given through IV without issue. Orthostatics completed, asymptomatic. Pt became nauseous and vomited x1. After emesis suction began pulling large volume again. Educated pt on repositioning if nausea or pain increase and output seems to have decreased as tip of suction may be resting against stomach wall. Reported this to oncoming nurse as well. BS active but not passing gas. Skin intact.
[2025-06-10] MEDS: PROCHLORPERAZINE 5 MG/ML VIAL IV (22:12)
[2025-06-10] MEDS: SODIUM CHLORIDE 0.9 % (FLUSH) 10 ML SYRINGE 5 ML IVF (22:12)
[2025-06-11 03:25] VITALS: BP 104/69; PULSE 88; RESP 16; TEMP 37; O2SAT 91
[2025-06-11] MEDS: MORPHINE 4 MG/ML INJ IVP ×3 (03:31→13:45)
[2025-06-11] MEDS: SODIUM CHLORIDE 0.9 % (FLUSH) 10 ML SYRINGE 5 ML IVF ×2 (03:32→09:04)
[2025-06-11] MEDS: LACTATED RINGERS 1000 ML 1,000 ML 125 ML IV (03:37)
[2025-06-11] MEDS: PROCHLORPERAZINE 5 MG/ML VIAL IV ×2 (03:50→12:02)
[2025-06-11] MEDS: LEVETIRACETAM 1,000 mg/100 ml INFUSION 1000 MG IVPB (05:56)
[2025-06-11 06:22] LABS: HCO3 VBG 35 mmol/L (21-28); Lactate* 3.1 mmol/L (0.5-1.9); PCO2 VBG 50 mmHG (40-50); PO2 VBG 54.3 mmHG (25-47); pH VBG 7.448 (7.32-7.43)
[2025-06-11 06:33] LABS: Hematocrit* 48.1 % (33.0-51.0); Hemoglobin* 16.4 gm/dL (12.0-16.0); Mean Corpuscular HGB Conc 34 gm/dL (32-36); Mean Corpuscular Hemoglobin 28 pg (26-34); Mean Corpuscular Volume 83 fL (80-100); Red Blood Count* 5.80 m/uL (4.00-5.20); Slide Review Reflex No; White Blood Count* 6.93 K/uL (4.50-11.00)
[2025-06-11] MEDS: LEVOTHYROXINE 25 MCG IVP (06:41)
--- NOTE | 2025-06-11 06:43 | PC.NURSE ---
Pt is alert and oriented x3. Afebrile. Pt reports 5/10 pain managed with PRN medication. Pt reports nausea, managed with PRN medications. Pt?s NG tube is at 57 cm and is patent and draining green output. Pt is up SBA with IV pole, voiding, and tolerating an NPO diet. ?
[2025-06-11 06:46] LABS: D Dimer Quantitative* 2.46 ug/ml (0.00-0.50)
[2025-06-11 06:47] LABS: Albumin* 4.2 g/dL (3.3-5.0); Chloride* 93 mmol/L (96-114); Sodium* 139 mmol/L (135-149)
[2025-06-11 06:48] LABS: Potassium* 3.9 mmol/L (3.6-5.1)
[2025-06-11 06:50] LABS: Alanine Aminotransferase* 23 U/L (4-35); Alkaline Phosphatase* 47 U/L (40-150); Anion Gap 13 mEq/L (7-15); Aspartate Amino Transferase* 45 U/L (12-35); Bilirubin Total* 2.1 mg/dL (0.1-1.5); Blood Urea Nitrogen* 51 mg/dL (7-30); Carbon Dioxide* 33 mmol/L (20-32); Creatinine* 1.8 mg/dL (0.5-1.5); Est. Creatinine Clearance* 27.66; Estimated Glomerular Filt Rate 33 ml/min; Total Protein* 7.1 g/dL (6.0-8.3)
[2025-06-11 06:51] LABS: Calcium* 9.9 mg/dL (8.4-10.6); Glucose* 105 mg/dL (60-115)
[2025-06-11 07:00] VITALS: BP 99/69; PULSE 98; RESP 18; TEMP 37; O2SAT 91
[2025-06-11 08:00] VITALS: BP 114/78; BP 117/82; BP 117/84; PULSE 100; PULSE 114; PULSE 137
[2025-06-11] MEDS: MAGNESIUM SULF 1 G/100 ML 1 GM/100 ML PIGGYBACK IVPB (09:03)
[2025-06-11] MEDS: PANTOPRAZOLE SODIUM 40 MG INJ IVP (09:03)
--- NOTE | 2025-06-11 09:44 | W.PC.NUTR.HO ---
Hospital Nutrition Assessment Patient Data Patient Gender: Female Patient Age: 54 Height: 167.64 cm Weight: 49.612 kg Body Mass Index: 17.6 Weight Calculations [place] Body Weight (lbs): 130.00 [place] Body Weight (kg): 58.97 Percent of [place] Body Weight: 84 Adjusted Body Weight (lbs): 124.84 Adjusted Body Weight (kg): 56.63 Basal Energy Expenditure (BEE): 1182.49 Basal Energy Expenditure (BEE) Adjusted Weight: 1249.61 Activity/Stress Factors Injury Factor/Activity Factor Value: 1.2 Total Energy Requirements Kcal requirements (current wt): 1418.988 Kcal requirements (adj wt): 1499.532 Protein Need (adj wt): 1.2 Total Protein (adj wt): 67.956 Fluid Need (adj wt): 30 Total Fluid (adj wt): 1698.90 Nutrition Assessment Diet Order: NPO Allergies: NKFA Appetite Prior to Admission: Poor (Vomiting prior to arrival) Appetite and Intake: NPO currently - today is Day #4 of no oral intakes. Hx Appetite Changes: Yes (abdominal pain and nausea and vomiting since Wednesday night (06/08)) Hx Weight Loss: Yes (loss of 1-2kg recently. Looks like pt's wt hovers around 51-52kg normally) Hx Weight Gain: No Nausea: Yes Vomiting: Yes Diarrhea: No Hx Constipation: No Chewing Difficulty: No Swallowing Difficulty: No Pressure Ulcer: No Diagnosis/Symptom or Procedure: Small bowel obstruction and cholelithiasis Clinical History: Medical history includes but not limited to protein-calorie malnutrition (moderate), Sarcoidosis, CKD (chronic kidney disease) stage 2, GFR 60-89 ml/min, Subdural hemorrhage, Acute on chronic diastolic (congestive) heart failure, Cirrhosis of liver, Edentulous, Mixed anxiety and depressive disorder, Generalized muscle weakness, Steatosis of liver, Obstructive sleep apnea, Hypertension, GERD (gastroesophageal reflux disease), MDD (major depressive disorder), Alcohol abuse, Essential hypertension, Generalized anxiety disorder, Fibromyalgia, and Nicotine dependence. Current Living Situation: Lives at home. Medications Medications: reviewed. Lab Results Lab Results: reviewed. Assessment/Plan PES Statement: Inadequate oral intakes related to current diet order for small bowel obstruction as evidenced by NPO diet order. Nutritional Assessment Summary: RDN with MD consult for malnutrition. Positive MST score. Patient is currently NPO related to small bowel obstruction and cholelithiasis. General surgery is consulted. Patient's has had little to no intakes since Wednesday night, 06/08/2025. Today is Day 4. With patient's current underweight BMI and history of moderate malnutrition, I recommend initiating PPN at the latest tomorrow due to patient at risk nutritionally. Will inform Hospitalist of recommendations. Discharge Plan-Living Situation: TBD Goals: Advance diet as appropriate per MD order, or initiation of PPN per MD order as soon as feasible. Plan/Recommendation: NPO per MD order. RDN will continue to monitor and follow-up prn. Malnutrition Assessment Current Energy Intake: Less Than 75% Estimated Timeframe Of Energy Intake: Other-See Comment (Less than 5 days) Weight Changes: Unable To Determine (Patient has a history of moderate protein, calorie malnutrition.) Recommended Malnutrition Diagnosis: Moderate Protein-Calorie Malnutrition In The Context: Acute Injury/Illness and Chronic Illness Based On: Inadequate Energy Intakes
[2025-06-11 10:01] LABS: Lactate* 2.9 mmol/L (0.5-1.9)
--- NOTE | 2025-06-11 10:12 | P.IMPN_ITS ---
Assessment and Plan Assessment and plan (1) Small bowel obstruction: Problem comment: - CT scan of the abdomen and pelvis was obtained which demonstrated small bowel obstruction - most likely secondary to intra-abdominal adhesions - conservative measurements for now: NG tube for suction placed, IV fluids, analgesics, antiemetics, ambulate in hallway as tolerated, serial assessments, serial laboratories - general surgery consultation Status: Acute (2) Cirrhosis of liver: Problem comment: -patient states that she has history of encephalopathy in the past, history of ascites that needed paracentesis procedure in the past but she mentioned that it has been years since she had that. When I mentioned history of infection in her abdomen (SBP), she said yes she had that but can not remember when. She denies history of vomiting blood/hematemesis and or esophageal varices. -history of using diuretics for her ascites but not currently -resume rifaximin 550 b.i.d. Status: Acute (3) Cholelithiasis: Problem comment: - noted on ultrasound from yesterday. No apparent inflammation or obstruction Status: Acute (4) COPD (chronic obstructive pulmonary disease): Problem comment: Monitor Status: Acute (5) Tobacco use disorder: Problem comment: - normally smokes 1 pack per day - declined nicotine patch we will try again Status: Acute (6) Seizure disorder: Problem comment: - normally on levetiracetam 1250 mg twice daily orally, in-hospital change to 1000 mg IV twice daily Status: Acute (7) Dehydration: Problem comment: - IV fluids and monitor vitals including orthostatics - Orthostatic blood pressure negative Status: Acute (8) Hyperviscosity syndrome: Problem comment: - most likely in great measure due to acute dehydration status, need to monitor closely to make sure were not missing an acute hematologic etiology Status: Acute (9) Protein-calorie malnutrition, moderate: Problem comment: - will ask Nutrition to follow while patient is in hospital Status: Acute (10) Unsteady gait: Problem comment: pt/ot Status: Acute Total Time Spent Total Time Spent: Today I spent 50 minutes seeing the patient, reviewing Expanse and EPIC notes/diagnostics, discussing the care plan with our care time that includes social work, PT/OT, pharmacy, RT, nursing home and documenting my impressions and plan in the medical record. Subjective Date Seen: 06/11/25 Interval history: Patient was seen and examined at bedside. Afebrile. Alert, awake, oriented X 3 but has lapses of memory. Patient states that her pain has improved since admission. Her last bowel movement was on WednesdayJune 08, she is not passing gas. Got more history about her liver cirrhosis, patient states that she has history of encephalopathy in the past, history of ascites that needed paracentesis procedure in the past but she mentioned that it has been years since she had that. When I mentioned history of infection in her abdomen (SBP), she said yes she had that but can not remember when. She denies history of vomiting bl ood/hematemesis and or esophageal varices. Patient also mentioned that she has history of cardiac arrest and she can not remember when or why but she denies history of heart attacks or obstruction of the coronary arteries. Exam Narrative: Exam Narrative: Physical exam GENERAL: Comfortable, no acute distress. NG tube in. HEAD AND NECK: Atraumatic, normocephalic CARDIOVASCULAR: RRR. Normal S1, S2. No murmurs. RESPIRATORY: Clear to auscultation B/L. Good air entry B/L. GASTROINTESTINAL: Not distended, not tender to palpation. Soft, no rigidity. NEUROLOGY: Alert, awake, oriented X 3 but has lapse of memory. Normal speech. PSYCH: Normal mood, normal affect. Const: Vital Signs, click to edit/add: Vital Signs - 24 hr 06/10/25 11:29 06/10/25 11:57 06/10/25 12:13 Temperature 98.1 F Pulse Rate 104 H 104 H Pulse Rate [Left P ulse Oximeter] Pulse Rate [Right Pulse Oximeter] 105 H Pulse Rate [orthos tatic lying Left P ulse Oximeter] Pulse Rate [orthos tatic sitting Left ] Pulse Rate [orthos tatic standing Lef t] Respiratory Rate 18 Blood Pressure Blood Pressure [Le ft Arm] Blood Pressure [Ri ght Arm] Blood Pressure [Ri ght Upper Arm] 98/79 Blood Pressure [or thostatic lying Le ft Arm] Blood Pressure [or thostatic sitting Left Arm] Blood Pressure [or thostatic standing Left Arm] Pulse Oximetry 91 94 94 Oxygen Delivery Me thod Room Air 06/10/25 12:15 06/10/25 12:16 06/10/25 12:30 Temperature Pulse Rate 105 H 100 84 Pulse Rate [Left P ulse Oximeter] Pulse Rate [Right Pulse Oximeter] Pulse Rate [orthos tatic lying Left P ulse Oximeter] Pulse Rate [orthos tatic sitting Left ] Pulse Rate [orthos tatic standing Lef t] Respiratory Rate 14 Blood Pressure 98/68 Blood Pressure [Le ft Arm] Blood Pressure [Ri ght Arm] Blood Pressure [Ri ght Upper Arm] Blood Pressure [or thostatic lying Le ft Arm] Blood Pressure [or thostatic sitting Left Arm] Blood Pressure [or thostatic standing Left Arm] Pulse Oximetry 94 93 92 Oxygen Delivery Me thod Room Air 06/10/25 12:31 06/10/25 13:01 06/10/25 13:17 Temperature Pulse Rate 79 84 92 Pulse Rate [Left P ulse Oximeter] Pulse Rate [Right Pulse Oximeter] Pulse Rate [orthos tatic lying Left P ulse Oximeter] Pulse Rate [orthos tatic sitting Left ] Pulse Rate [orthos tatic standing Lef t] Respiratory Rate 16 Blood Pressure 95/66 94/60 Blood Pressure [Le ft Arm] Blood Pressure [Ri ght Arm] Blood Pressure [Ri ght Upper Arm] Blood Pressure [or thostatic lying Le ft Arm] Blood Pressure [or thostatic sitting Left Arm] Blood Pressure [or thostatic standing Left Arm] Pulse Oximetry 94 94 94 Oxygen Delivery Nv thod Room Air 06/10/25 13:30 06/10/25 13:31 06/10/25 13:45 Temperature Pulse Rate 97 99 101 H Pulse Rate [Left P ulse Oximeter] Pulse Rate [Right Pulse Oximeter] Pulse Rate [orthos tatic lying Left P ulse Oximeter] Pulse Rate [orthos tatic sitting Left ] Pulse Rate [orthos tatic standing Lef t] Respiratory Rate 14 Blood Pressure 107/78 Blood Pressure [Le ft Arm] Blood Pressure [Ri ght Arm] Blood Pressure [Ri ght Upper Arm] Blood Pressure [or thostatic lying Le ft Arm] Blood Pressure [or thostatic sitting Left Arm] Blood Pressure [or thostatic standing Left Arm] Pulse Oximetry 89 94 Oxygen Delivery Me thod Room Air 06/10/25 14:01 06/10/25 14:31 06/10/25 14:32 Temperature Pulse Rate 96 93 Pulse Rate [Left P ulse Oximeter] Pulse Rate [Right Pulse Oximeter] Pulse Rate [orthos tatic lying Left P ulse Oximeter] Pulse Rate [orthos tatic sitting Left ] Pulse Rate [orthos tatic standing Lef t] Respiratory Rate Blood Pressure 110/79 117/79 Blood Pressure [Le ft Arm] Blood Pressure [Ri ght Arm] Blood Pressure [Ri ght Upper Arm] Blood Pressure [or thostatic lying Le ft Arm] Blood Pressure [or thostatic sitting Left Arm] Blood Pressure [or thostatic standing Left Arm] Pulse Oximetry 93 93 Oxygen Delivery Me thod 06/10/25 14:45 06/10/25 15:02 06/10/25 15:31 Temperature Pulse Rate 114 H 100 Pulse Rate [Left P ulse Oximeter] Pulse Rate [Right Pulse Oximeter] Pulse Rate [orthos tatic lying Left P ulse Oximeter] Pulse Rate [orthos tatic sitting Left ] Pulse Rate [orthos tatic standing Lef t] Respiratory Rate 16 Blood Pressure 126/101 H 110/77 Blood Pressure [Le ft Arm] Blood Pressure [Ri ght Arm] Blood Pressure [Ri ght Upper Arm] Blood Pressure [or thostatic lying Le ft Arm] Blood Pressure [or thostatic sitting Left Arm] Blood Pressure [or thostatic standing Left Arm] Pulse Oximetry 94 Oxygen Delivery Me thod Room Air 06/10/25 16:27 06/10/25 16:27 06/10/25 18:00 Temperature Pulse Rate Pulse Rate [Left P ulse Oximeter] 68 Pulse Rate [Right Pulse Oximeter] Pulse Rate [orthos tatic lying Left P ulse Oximeter] 93 Pulse Rate [orthos tatic sitting Left ] 93 Pulse Rate [orthos tatic standing Lef t] 101 H Respiratory Rate 18 Blood Pressure Blood Pressure [Le ft Arm] 109/77 Blood Pressure [Ri ght Arm] Blood Pressure [Ri ght Upper Arm] Blood Pressure [or thostatic lying Le ft Arm] 114/79 Blood Pressure [or thostatic sitting Left Arm] 118/87 Blood Pressure [or thostatic standing Left Arm] 137/94 H Pulse Oximetry 92 92 Oxygen Delivery Me thod Room Air Room Air 06/10/25 19:00 06/10/25 23:30 06/10/25 23:30 Temperature 97.8 F 97.8 F Pulse Rate Pulse Rate [Left P ulse Oximeter] 77 88 Pulse Rate [Right Pulse Oximeter] Pulse Rate [orthos tatic lying Left P ulse Oximeter] Pulse Rate [orthos tatic sitting Left ] Pulse Rate [orthos tatic standing Lef t] Respiratory Rate 16 16 Blood Pressure Blood Pressure [Le ft Arm] 112/79 94/65 Blood Pressure [Ri ght Arm] 96/64 Blood Pressure [Ri ght Upper Arm] Blood Pressure [or thostatic lying Le ft Arm] Blood Pressure [or thostatic sitting Left Arm] Blood Pressure [or thostatic standing Left Arm] Pulse Oximetry 90 89 89 Oxygen Delivery Me thod Room Air Room Air Room Air 06/11/25 03:25 06/11/25 07:00 06/11/25 07:00 Temperature 98.6 F 98.6 F Pulse Rate Pulse Rate [Left P ulse Oximeter] 88 98 98 Pulse Rate [Right Pulse Oximeter] Pulse Rate [orthos tatic lying Left P ulse Oximeter] Pulse Rate [orthos tatic sitting Left ] Pulse Rate [orthos tatic standing Lef t] Respiratory Rate 16 18 Blood Pressure Blood Pressure [Le ft Arm] 104/69 99/69 Blood Pressure [Ri ght Arm] Blood Pressure [Ri ght Upper Arm] Blood Pressure [or thostatic lying Le ft Arm] Blood Pressure [or thostatic sitting Left Arm] Blood Pressure [or thostatic standing Left Arm] Pulse Oximetry 91 91 Oxygen Delivery Nv thod Room Air Room Air 06/11/25 07:00 06/11/25 08:00 Temperature Pulse Rate Pulse Rate [Left P ulse Oximeter] Pulse Rate [Right Pulse Oximeter] Pulse Rate [orthos tatic lying Left P ulse Oximeter] 100 Pulse Rate [orthos tatic sitting Left ] 114 H Pulse Rate [orthos tatic standing Lef t] 137 H Respiratory Rate Blood Pressure Blood Pressure [Le ft Arm] Blood Pressure [Ri ght Arm] Blood Pressure [Ri ght Upper Arm] Blood Pressure [or thostatic lying Le ft Arm] 114/78 Blood Pressure [or thostatic sitting Left Arm] 117/82 Blood Pressure [or thostatic standing Left Arm] 117/84 Pulse Oximetry 91 Oxygen Delivery Me thod Room Air Labs Labs: Laboratory Results - last 24 hr 06/10/25 06/10/25 06/10/25 11:44 12:08 12:10 WBC 6.30 RBC 6.58 H Hgb 18.8 H Hct 54.5 H MCV 83 MCH 29 MCHC 35 RDW Coeff of Susanna 15.8 H Plt Count 122 L Neut % (Auto) 77.4 H Lymph % (Auto) 11.0 L Walsh % (Auto) 11.0 Eos % (Auto) 0.2 Baso % (Auto) 0.2 Neut # (Auto) 4.90 Lymph # (Auto) 0.70 L Walsh # (Auto) 0.70 Eos # (Auto) 0.01 Baso # (Auto) 0.01 Abs Immat Gran (auto) 0.01 Imm/Tot Granulo (auto) 0.2 INR 1.03 D-Dimer Quant (PE/DVT) VBG pH VBG pCO2 VBG pO2 VBG HCO3 Sodium 140 Potassium 4.2 Chloride 99 Carbon Dioxide 28 Anion Gap 13 BUN 31 H Creatinine 1.4 Estimated Creat Clear Estimated GFR 44 Glucose 105 Lactate Calcium 10.3 Phosphorus Magnesium Total Bilirubin 2.9 H Direct Bilirubin 0.8 H AST 44 H ALT 28 Alkaline Phosphatase 43 C-Reactive Protein Total Protein 6.8 Albumin 4.0 Lipase 100 TSH Ethyl Alcohol < 0.01 Lab Acknowledgement Test Added Test Added POC Creatinine 1.6 H 06/10/25 06/11/25 06/11/25 13:05 05:42 09:54 WBC 6.93 RBC 5.80 H Hgb 16.4 H Hct 48.1 MCV 83 MCH 28 MCHC 34 RDW Coeff of Susanna Plt Count 111 L Neut % (Auto) Lymph % (Auto) Walsh % (Auto) Eos % (Auto) Baso % (Auto) Neut # (Auto) Lymph # (Auto) Walsh # (Auto) Eos # (Auto) Baso # (Auto) Abs Immat Gran (auto) Imm/Tot Granulo (auto) INR D-Dimer Quant (PE/DVT) 2.46 H VBG pH 7.448 H VBG pCO2 50 VBG pO2 54.3 H VBG HCO3 35 H Sodium 139 Potassium 3.9 Chloride 93 L Carbon Dioxide 33 H Anion Gap 13 BUN 51 H Creatinine 1.8 H Estimated Creat Clear 27.66 Estimated GFR 33 Glucose 105 Lactate 3.1 H 2.9 H Calcium 9.9 Phosphorus 6.4 H* Magnesium 1.4 L Total Bilirubin 2.1 H Direct Bilirubin AST 45 H ALT 23 Alkaline Phosphatase 47 C-Reactive Protein 7.2 H Total Protein 7.1 Albumin 4.2 Lipase 197 TSH 2.030 Ethyl Alcohol Lab Acknowledgement Test Added POC Creatinine
[2025-06-11 10:37] VITALS: BMI 17.6
[2025-06-11 10:47] VITALS: BP 100/59; PULSE 94; RESP 16; TEMP 37.1; O2SAT 91
--- NOTE | 2025-06-11 11:07 | CRLHL7_ITS ---
For Patients: As a result of the Century Cures Act, medical imaging exams and procedure reports are released immediately into your electronic medical record. You may view this report before your referring provider. If you have questions, please contact your health care provider. INDICATION: Evaluate incarcerated right inguinal hernia.. TECHNIQUE: CT abdomen and pelvis acquired without IV contrast. COMPARISON: CT dated 06/10/2025. FINDINGS: A trace right pleural effusion is slightly improved compared to the prior. Redemonstrated surface nodularity as evidence for cirrhosis. Limited evaluation for an liver. Refer to prior report. There is marked distention of the gallbladder. No significant pericholecystic fluid or stranding to suggest acute cholecystitis. Small stone noted. No significant biliary ductal dilatation. Splenomegaly is redemonstrated. Pancreas is unchanged in appearance. Prominent duct is redemonstrated. Thickening of the left adrenal gland is noted. There is enhancement of the kidneys with excretion of contrast within the collecting systems from the CT yesterday. Recommend correlation with patient`s renal function. No hydronephrosis is seen. The urinary bladder is partially distended with excreted contrast. No mass or lesion is seen within the contrast column. The colon is nondilated. There is stool throughout. Scattered diverticular seen without CT evidence of acute diverticulitis. The appendix is not seen on the current than the prior examination. The distal small bowel and terminal ileum are decompressed. Redemonstrated are dilated fluid-filled loops of small bowel as evidence for persistent small bowel obstruction. The dilatation of the bowel does appear to be slightly increased compared to the prior examination. Redemonstrated is a right inguinal hernia which contains decompressed small bowel which is similar compared the prior examination. There does appear to be tethering of the small bowel at the entrance of the left inguinal canal with an adjacent dilated loop noted (series 2, image 128). This is better visualized on the prior examination. This may represent a source of obstruction. The stomach is partially distended with a nasogastric tube in place. No free air. No significant ascites. No significant mesenteric edema. The uterus is unchanged in appearance. The aorta is nonaneurysmal. Bone windows demonstrate no acute findings. IMPRESSION: 1. Redemonstrated CT findings of small-bowel obstruction. The dilatation of the bowel appears to be slightly increased compared to 06/10/2025. Unchanged appearance of a small right inguinal hernia containing a decompressed loop of bowel. There is apparent tethering of the bowel adjacent inguinal canal with a prominent small bowel loop noted which could represent a site of obstruction. Indeterminate haziness of the small bowel may be reactive with no definitive evidence of ischemia. Recommend correlation with serum lactate and physical examination. A follow-up CT with water-soluble contrast or small-bowel follow-through examination may be performed to better evaluate the obstruction. 2. Distended gallbladder without surrounding inflammatory fat stranding to suggest acute cholecystitis. 3. Additional unchanged findings. Please note that all CT scans at this facility use dose modulation, iterative reconstruction, and/or weight-based dosing when appropriate to reduce radiation dose to as low as reasonably achievable. Dictated by Rod Chapman MD @ 06/11/2025 12:20:06 PM (Electronically Signed)
--- NOTE | 2025-06-11 11:29 | PM.GSCN ---
History of Present Illness Consult details Date Seen: 06/11/25 Consult date: 06/11/25 Narrative: 54-year-old female was admitted to the hospital with small-bowel obstruction and I was asked by Dr. De León to see her in consultation. Patient states that she developed lower abdominal pain on Wednesday. The pain was not improving and got worse yesterday. Patient decided to come to the emergency room. She had vomiting. She was not passing gas and was not eating. I personally reviewed her workup in the emergency room. Patient was found to have normal WBC of 6. Her hemoglobin was 18. Patient had elevated phosphorus of 6, her magnesium was 1.4, elevated total bilirubin of 2.1, normal INR. Patient's lactate was measured at 3.1. Patient's platelets are usually below 100,000 and her recent platelet check was 122,000. Patient had an abdominal CT scan that showed dilated proximal bowel and stomach. Radiology described transition point in the right lower quadrant with a questionable finding of fluid collection. There was no mention of incarcerated inguinal hernia. On my review this could be an incarcerated inguinal hernia. Patient's CT also shows recanalization of the umbilical vein consisted with advanced cirrhosis. Review of Systems Narrative: General: no fevers HENT: no problems swallowing CV: no shortness of breath Resp: no cough GI: No nausea, vomiting, abdominal pain : no dysuria, no increased urinary frequency, no hematuria Skin: no new rashes Musculoskeletal: no back pain Neuro: no muscle weakness Psyche: no depression, no anxiety PFSH PFSH Medical History Protein-calorie malnutrition, moderate ?E44.0 - Moderate protein-calorie malnutrition (ICD-10) Clotting disorder ?D68.9 - Coagulation defect, unspecified (ICD-10) Sarcoidosis ?D86.9 - Sarcoidosis, unspecified (ICD-10) MRSA infection ?A49.02 - Methicillin resistant Staphylococcus aureus infection, unspecified site (ICD-10) Acute tubular necrosis ?N17.0 - Acute kidney failure with tubular necrosis (ICD-10) PFO (patent foramen ovale) ?Q21.12 - Patent foramen ovale (ICD-10) CKD (chronic kidney disease) stage 2, GFR 60-89 ml/min ?N18.2 - Chronic kidney disease, stage 2 (mild) (ICD-10) Ecchymosis ?R58 - Hemorrhage, not elsewhere classified (ICD-10) Subdural hemorrhage ?I62.00 - Nontraumatic subdural hemorrhage, unspecified (ICD-10) Seizures, post-traumatic ?R56.1 - Post traumatic seizures (ICD-10) Tachycardia ?R00.0 - Tachycardia, unspecified (ICD-10) Abdominal bloating ?R14.0 - Abdominal distension (gaseous) (ICD-10) Acute on chronic diastolic (congestive) heart failure ?I50.33 - Acute on chronic diastolic (congestive) heart failure (ICD-10) Cirrhosis of liver ?K74.60 - Unspecified cirrhosis of liver (ICD-10) Metabolic encephalopathy ?G93.41 - Metabolic encephalopathy (ICD-10) Edentulous ?K08.109 - Complete loss of teeth, unspecified cause, unspecified class (ICD-10) Mixed anxiety and depressive disorder ?F41.8 - Other specified anxiety disorders (ICD-10) Generalized muscle weakness ?M62.81 - Muscle weakness (generalized) (ICD-10) Primary insomnia ?F51.01 - Primary insomnia (ICD-10) Lipodystrophy ?E88.1 - Lipodystrophy, not elsewhere classified (ICD-10) Tinea corporis ?B35.4 - Tinea corporis (ICD-10) Vitamin B12 deficiency ?E53.8 - Deficiency of other specified B group vitamins (ICD-10) Folate deficiency ?E53.8 - Deficiency of other specified B group vitamins (ICD-10) Diffuse connective tissue disease ?M35.9 - Systemic involvement of connective tissue, unspecified (ICD-10) Uterine leiomyoma ?D25.9 - Leiomyoma of uterus, unspecified (ICD-10) Hemorrhage into subarachnoid space of neuraxis ?I60.9 - Nontraumatic subarachnoid hemorrhage, unspecified (ICD-10) Steatosis of liver ?K76.0 - Fatty (change of) liver, not elsewhere classified (ICD-10) Peripheral nerve disease ?G62.9 - Polyneuropathy, unspecified (ICD-10) Cyst, ovarian ?N83.209 - Unspecified ovarian cyst, unspecified side (ICD-10) Obstructive sleep apnea ?G47.33 - Obstructive sleep apnea (adult) (pediatric) (ICD-10) Migraine ?G43.909 - Migraine, unspecified, not intractable, without status migrainosus (ICD-10) Hypertension ?I10 - Essential (primary) hypertension (ICD-10) Occipital headache ?R51.9 - Headache, unspecified (ICD-10) GERD (gastroesophageal reflux disease) ?K21.9 - Gastro-esophageal reflux disease without esophagitis (ICD-10) Disturbance in sleep behavior ?G47.9 - Sleep disorder, unspecified (ICD-10) MDD (major depressive disorder) ?F32.9 - Major depressive disorder, single episode, unspecified (ICD-10) Alcohol abuse ?F10.10 - Alcohol abuse, uncomplicated (ICD-10) Mediastinal lymphadenopathy ?R59.0 - Localized enlarged lymph nodes (ICD-10) Sensory ganglionopathy ?G54.9 - Nerve root and plexus disorder, unspecified (ICD-10) Secundum ASD ?Q21.1 - Atrial septal defect (ICD-10) Right ventricular enlargement ?I51.7 - Cardiomegaly (ICD-10) 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 - Partial anomalous pulmonary venous connection (ICD-10) Menorrhagia ?N92.0 - Excessive and frequent menstruation with regular cycle (ICD-10) 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 - Dry beriberi (ICD-10) Tear film insufficiency ?H04.129 - Dry eye syndrome of unspecified lacrimal gland (ICD-10) Presbyopia ?H52.4 - Presbyopia (ICD-10) Bilateral myopia ?H52.13 - Myopia, bilateral (ICD-10) Hypothyroidism ?E03.9 - Hypothyroidism, unspecified (ICD-10) Dental decay ?K02.9 - Dental caries, unspecified (ICD-10) Fibroid ?D21.9 - Benign neoplasm of connective and other soft tissue, unspecified (ICD-10) Vitamin D deficiency ?E55.9 - Vitamin D deficiency, unspecified (ICD-10) Coccyx pain ?M53.3 - Sacrococcygeal disorders, not elsewhere classified (ICD-10) Essential hypertension ?I10 - Essential (primary) hypertension (ICD-10) Dysthymic disorder ?F34.1 - Dysthymic disorder (ICD-10) Generalized anxiety disorder ?F41.1 - Generalized anxiety disorder (ICD-10) Malnutrition ?E46 - Unspecified protein-calorie malnutrition (ICD-10) Myalgia and myositis Fibromyalgia ?M79.7 - Fibromyalgia (ICD-10) Nicotine dependence ?F17.200 - Nicotine dependence, unspecified, uncomplicated (ICD-10) Ataxia ?R27.0 - Ataxia, unspecified (ICD-10) Sarcoidosis of lung with sarcoidosis of lymph nodes ?D86.2 - Sarcoidosis of lung with sarcoidosis of lymph nodes (ICD-10) Peripheral neuropathy ?G62.9 - Polyneuropathy, unspecified (ICD-10) Surgical History (Updated 06/11/25 @ 11:33 by Lisa Guillermo MD) Hx of hernia repair ?Z98.890 - Other specified postprocedural states (ICD-10) ?Z87.19 - Personal history of other diseases of the digestive system (ICD-10) History of appendectomy ?Z90.49 - Acquired absence of other specified parts of digestive tract (ICD-10) Social History What is your current living situation?: I presently have a place to live Problems where you live: no known problems In the past 12 months, utilities in danger of being shut off: no In past 12 months, lack of transportation kept you from medical appts, meetings, work, or getting things needed for daily living: no In the past 12 mos, have been you worried that your food would run out before you had money to buy more?: never true In the past 12 mos, the food you bought just didn't last and you didn't have money to buy more?: never true Highest level of school completed/degree received: some college, no degree Smoking Status: Current every day smoker What tobacco products do you use: cigarettes Smoking packs per day: 1 Smoking cigarettes per day: 20.0 Years smoked: 43 Smoking pack-years: 43.00 Do you use any of these nicotine containing products: None Second hand tobacco smoke exposure: Yes How often do you have a drink containing alcohol: never How often do you have six or more drinks on one occasion: Never AUDIT-C Alcohol total score: 0 Non-prescribed substance use: denies use Non-prescribed substance use details: THC pills Caffeine: Yes How often does anyone, including family, friends and others, physically hurt you: never How often does anyone, including family, friends and others, insult or talk down to you: never How often does anyone, including family, friends and others, threaten you with harm: never How often does anyone, including family, friends and others, scream or curse at you: never service: No Meds Home Medications and Allergies Home Medications ?Medication ?Instructions ?Recorded ?Confirmed ?Type THC 02/05/22 06/10/25 History levetiracetam 1,000 mg tablet 1,000 mg PO BID 02/05/22 06/10/25 History levothyroxine 50 mcg tablet 25 - 50 mcg PO DAILY 02/05/22 06/10/25 History magnesium oxide 400 mg (241.3 mg 400 mg PO DAILY 02/05/22 06/10/25 History magnesium) tablet melatonin 3 mg capsule 3 mg PO HS 02/05/22 06/10/25 History omeprazole 40 mg capsule,delayed 40 mg PO DAILY 02/05/22 06/10/25 History release pregabalin 50 mg capsule 50 mg PO BID 02/05/22 06/10/25 History rifaximin 550 mg tablet (Xifaxan) 550 mg PO BID 02/05/22 06/10/25 History levetiracetam 250 mg tablet 250 mg PO BID #60 tabs 08/31/24 06/10/25 Rx (Keppra) cholecalciferol (vitamin D3) 50 50 mcg PO DAILY 03/24/25 06/10/25 History mcg (2,000 unit) tablet (Vitamin D3) evolocumab 140 mg/mL subcutaneous 140 mg subcut Q14D 03/24/25 06/10/25 History pen injector (Repatha SureClick) ferrous gluconate 324 mg (38 mg 324 mg PO DAILY 03/24/25 06/10/25 History iron) tablet hydroxyzine HCl 25 mg tablet 25 - 50 mg PO Q8H PRN anxiety 03/24/25 06/10/25 History psyllium 1 tbsp PO QAM 03/24/25 06/10/25 History thiamine mononitrate (vit B1) 100 100 mg PO DAILY 03/24/25 06/10/25 History mg tablet oxycodone-acetaminophen 5 mg-325 1 - 2 tab PO Q4-6H PRN pain #6 tabs 06/09/25 06/10/25 Rx mg tablet (Endocet) albuterol sulfate 90 mcg/actuation 2 puff inhalation Q6H PRN wheezing 06/10/25 06/10/25 History aerosol inhaler (Ventolin HFA) ascorbic acid (vitamin C) 500 mg 500 mg PO DAILY 06/10/25 06/10/25 History tablet Allergies Allergy/AdvReac Type Severity Reaction Status Date / Time cephalexin Allergy Severe Anaphylaxis Verified 06/10/25 12:41 duloxetine Allergy Severe Anaphylaxis Verified 06/10/25 12:41 Pertussis Vaccines Allergy Severe Anaphylaxis Verified 06/10/25 12:41 [id number] Reductase Allergy Severe elevated Verified 06/10/25 12:41 Inhibitor LFT Sulfa (Sulfonamide Allergy Severe Anaphylaxis Verified 06/10/25 12:41 Antibiotics) latex Allergy Mild Rash Verified 06/10/25 12:41 codeine Allergy Unknown Verified 06/10/25 12:41 gabapentin AdvReac Mild Verified 06/10/25 12:41 Exam Narrative: Exam Narrative: General appearance: Alert, cooperative, and in no distress Pulmonary: Chest symmetric, lungs clear bilaterally Cardiovascular Heart: Regular rate and rhythm, S1, S2, no murmurs/rubs/gallops Gastrointestinal Abdominal: soft, not distended, tenderness to palpation throughout the abdomen, no clear bulge in the right inguinal canal but patient had tenderness to palpation in the right inguinal canal. The tenderness area was palpated and possibly reduced and no further tenderness in the inguinal canal was palpated. It is difficult to tell if patient had incarcerated hernia or not. Skin: Normal skin color, texture, and turgor. No rashes or lesions. Psychiatric: Alert, cooperative, normal affect. Const: Vital Signs, click to edit/add: Vital Signs - 24 hr 06/10/25 11:57 06/10/25 12:13 06/10/25 12:15 Temperature Pulse Rate 104 H 104 H 105 H Pulse Rate [Left P ulse Oximeter] Pulse Rate [orthos tatic lying Left P ulse Oximeter] Pulse Rate [orthos tatic sitting Left ] Pulse Rate [orthos tatic standing Lef t] Respiratory Rate Blood Pressure Blood Pressure [Le ft Arm] Blood Pressure [Ri ght Arm] Blood Pressure [or thostatic lying Le ft Arm] Blood Pressure [or thostatic sitting Left Arm] Blood Pressure [or thostatic standing Left Arm] Pulse Oximetry 94 94 94 Oxygen Delivery Me thod 06/10/25 12:16 06/10/25 12:30 06/10/25 12:31 Temperature Pulse Rate 100 84 79 Pulse Rate [Left P ulse Oximeter] Pulse Rate [orthos tatic lying Left P ulse Oximeter] Pulse Rate [orthos tatic sitting Left ] Pulse Rate [orthos tatic standing Lef t] Respiratory Rate 14 Blood Pressure 98/68 95/66 Blood Pressure [Le ft Arm] Blood Pressure [Ri ght Arm] Blood Pressure [or thostatic lying Le ft Arm] Blood Pressure [or thostatic sitting Left Arm] Blood Pressure [or thostatic standing Left Arm] Pulse Oximetry 93 92 94 Oxygen Delivery Me thod Room Air 06/10/25 13:01 06/10/25 13:17 06/10/25 13:30 Temperature Pulse Rate 84 92 97 Pulse Rate [Left P ulse Oximeter] Pulse Rate [orthos tatic lying Left P ulse Oximeter] Pulse Rate [orthos tatic sitting Left ] Pulse Rate [orthos tatic standing Lef t] Respiratory Rate 16 Blood Pressure 94/60 Blood Pressure [Le ft Arm] Blood Pressure [Ri ght Arm] Blood Pressure [or thostatic lying Le ft Arm] Blood Pressure [or thostatic sitting Left Arm] Blood Pressure [or thostatic standing Left Arm] Pulse Oximetry 94 94 89 Oxygen Delivery Me thod Room Air 06/10/25 13:31 06/10/25 13:45 06/10/25 14:01 Temperature Pulse Rate 99 101 H Pulse Rate [Left P ulse Oximeter] Pulse Rate [orthos tatic lying Left P ulse Oximeter] Pulse Rate [orthos tatic sitting Left ] Pulse Rate [orthos tatic standing Lef t] Respiratory Rate 14 Blood Pressure 107/78 110/79 Blood Pressure [Le ft Arm] Blood Pressure [Ri ght Arm] Blood Pressure [or thostatic lying Le ft Arm] Blood Pressure [or thostatic sitting Left Arm] Blood Pressure [or thostatic standing Left Arm] Pulse Oximetry 94 Oxygen Delivery Me thod Room Air 06/10/25 14:31 06/10/25 14:32 06/10/25 14:45 Temperature Pulse Rate 96 93 114 H Pulse Rate [Left P ulse Oximeter] Pulse Rate [orthos tatic lying Left P ulse Oximeter] Pulse Rate [orthos tatic sitting Left ] Pulse Rate [orthos tatic standing Lef t] Respiratory Rate Blood Pressure 117/79 Blood Pressure [Le ft Arm] Blood Pressure [Ri ght Arm] Blood Pressure [or thostatic lying Le ft Arm] Blood Pressure [or thostatic sitting Left Arm] Blood Pressure [or thostatic standing Left Arm] Pulse Oximetry 93 93 94 Oxygen Delivery Me thod 06/10/25 15:02 06/10/25 15:31 06/10/25 16:27 Temperature Pulse Rate 100 Pulse Rate [Left P ulse Oximeter] 68 Pulse Rate [orthos tatic lying Left P ulse Oximeter] Pulse Rate [orthos tatic sitting Left ] Pulse Rate [orthos tatic standing Lef t] Respiratory Rate 16 18 Blood Pressure 126/101 H 110/77 Blood Pressure [Le ft Arm] 109/77 Blood Pressure [Ri ght Arm] Blood Pressure [or thostatic lying Le ft Arm] Blood Pressure [or thostatic sitting Left Arm] Blood Pressure [or thostatic standing Left Arm] Pulse Oximetry 92 Oxygen Delivery Me thod Room Air Room Air 06/10/25 16:27 06/10/25 18:00 06/10/25 19:00 Temperature 97.8 F Pulse Rate Pulse Rate [Left P ulse Oximeter] 77 Pulse Rate [orthos tatic lying Left P ulse Oximeter] 93 Pulse Rate [orthos tatic sitting Left ] 93 Pulse Rate [orthos tatic standing Lef t] 101 H Respiratory Rate 16 Blood Pressure Blood Pressure [Le ft Arm] 112/79 Blood Pressure [Ri ght Arm] Blood Pressure [or thostatic lying Le ft Arm] 114/79 Blood Pressure [or thostatic sitting Left Arm] 118/87 Blood Pressure [or thostatic standing Left Arm] 137/94 H Pulse Oximetry 92 90 Oxygen Delivery Me thod Room Air Room Air 06/10/25 23:30 06/10/25 23:30 06/11/25 03:25 Temperature 97.8 F 98.6 F Pulse Rate Pulse Rate [Left P ulse Oximeter] 88 88 Pulse Rate [orthos tatic lying Left P ulse Oximeter] Pulse Rate [orthos tatic sitting Left ] Pulse Rate [orthos tatic standing Lef t] Respiratory Rate 16 16 Blood Pressure Blood Pressure [Le ft Arm] 94/65 104/69 Blood Pressure [Ri ght Arm] 96/64 Blood Pressure [or thostatic lying Le ft Arm] Blood Pressure [or thostatic sitting Left Arm] Blood Pressure [or thostatic standing Left Arm] Pulse Oximetry 89 89 91 Oxygen Delivery Me thod Room Air Room Air Room Air 06/11/25 07:00 06/11/25 07:00 06/11/25 07:00 Temperature 98.6 F Pulse Rate Pulse Rate [Left P ulse Oximeter] 98 98 Pulse Rate [orthos tatic lying Left P ulse Oximeter] Pulse Rate [orthos tatic sitting Left ] Pulse Rate [orthos tatic standing Lef t] Respiratory Rate 18 Blood Pressure Blood Pressure [Le ft Arm] 99/69 Blood Pressure [Ri ght Arm] Blood Pressure [or thostatic lying Le ft Arm] Blood Pressure [or thostatic sitting Left Arm] Blood Pressure [or thostatic standing Left Arm] Pulse Oximetry 91 91 Oxygen Delivery Ma thod Room Air Room Air 06/11/25 08:00 06/11/25 10:47 Temperature 98.7 F Pulse Rate Pulse Rate [Left P ulse Oximeter] 94 Pulse Rate [orthos tatic lying Left P ulse Oximeter] 100 Pulse Rate [orthos tatic sitting Left ] 114 H Pulse Rate [orthos tatic standing Lef t] 137 H Respiratory Rate 16 Blood Pressure Blood Pressure [Le ft Arm] 100/59 L Blood Pressure [Ri ght Arm] Blood Pressure [or thostatic lying Le ft Arm] 114/78 Blood Pressure [or thostatic sitting Left Arm] 117/82 Blood Pressure [or thostatic standing Left Arm] 117/84 Pulse Oximetry 91 Oxygen Delivery Me thod Room Air Results Labs Labs: Abnormal lab results 06/10/25 06/10/25 06/11/25 Range/Units 11:44 12:10 05:42 RBC 6.58 H 5.80 H (4.00-5.20) m/uL Hgb 18.8 H 16.4 H (12.0-16.0) gm/dL Hct 54.5 H (33.0-51.0) % RDW Coeff of Susanna 15.8 H (11.5-15.5) % Plt Count 122 L 111 L (140-440) K/uL Neut % (Auto) 77.4 H (42.0-72.0) % Lymph % (Auto) 11.0 L (20-44) % Lymph # (Auto) 0.70 L (0.90-2.90) K/uL D-Dimer Quant (PE/DVT) 2.46 H (0.00-0.50) ug/ml VBG pH 7.448 H (7.32-7.43) VBG pO2 54.3 H (25-47) mmHG VBG HCO3 35 H (21-28) mmol/L Chloride 93 L (96-114) mmol/L Carbon Dioxide 33 H (20-32) mmol/L BUN 31 H 51 H (7-30) mg/dL Creatinine 1.8 H (0.5-1.5) mg/dL Lactate 3.1 H (0.5-1.9) mmol/L Phosphorus 6.4 H* (2.5-4.5) mg/dL Magnesium 1.4 L (1.5-2.6) mg/dL Total Bilirubin 2.9 H 2.1 H (0.1-1.5) mg/dL Direct Bilirubin 0.8 H (0.0-0.5) mg/dL AST 44 H 45 H (12-35) U/L C-Reactive Protein 7.2 H (0.5-1.0) mg/dL POC Creatinine 1.6 H (0.6-1.3) mg/dl 06/11/25 Range/Units 09:54 RBC (4.00-5.20) m/uL Hgb (12.0-16.0) gm/dL Hct (33.0-51.0) % RDW Coeff of Susanna (11.5-15.5) % Plt Count (140-440) K/uL Neut % (Auto) (42.0-72.0) % Lymph % (Auto) (20-44) % Lymph # (Auto) (0.90-2.90) K/uL D-Dimer Quant (PE/DVT) (0.00-0.50) ug/ml VBG pH (7.32-7.43) VBG pO2 (25-47) mmHG VBG HCO3 (21-28) mmol/L Chloride (96-114) mmol/L Carbon Dioxide (20-32) mmol/L BUN (7-30) mg/dL Creatinine (0.5-1.5) mg/dL Lactate 2.9 H (0.5-1.9) mmol/L Phosphorus 6.2 H* (2.5-4.5) mg/dL Magnesium (1.5-2.6) mg/dL Total Bilirubin (0.1-1.5) mg/dL Direct Bilirubin (0.0-0.5) mg/dL AST (12-35) U/L C-Reactive Protein (0.5-1.0) mg/dL POC Creatinine (0.6-1.3) mg/dl Diabetes panel 06/10/25 06/11/25 Range/Units 12:10 05:42 Sodium 140 139 (135-149) mmol/L Potassium 4.2 3.9 (3.6-5.1) mmol/L Chloride 99 93 L (96-114) mmol/L Carbon Dioxide 28 33 H (20-32) mmol/L BUN 31 H 51 H (7-30) mg/dL Creatinine 1.4 1.8 H (0.5-1.5) mg/dL Glucose 105 105 (60-115) mg/dL Calcium 10.3 9.9 (8.4-10.6) mg/dL AST 44 H 45 H (12-35) U/L ALT 28 23 (4-35) U/L Alkaline Phosphatase 43 47 (40-150) U/L Total Protein 6.8 7.1 (6.0-8.3) g/dL Albumin 4.0 4.2 (3.3-5.0) g/dL Thyroid panel 06/11/25 Range/Units 05:42 TSH 2.030 (0.270-4.20) uIU/mL Calcium panel 06/10/25 06/11/25 06/11/25 Range/Units 12:10 05:42 09:54 Calcium 10.3 9.9 (8.4-10.6) mg/dL Phosphorus 6.4 H* 6.2 H* (2.5-4.5) mg/dL Albumin 4.0 4.2 (3.3-5.0) g/dL Pituitary panel 06/10/25 06/11/25 Range/Units 12:10 05:42 Sodium 140 139 (135-149) mmol/L Potassium 4.2 3.9 (3.6-5.1) mmol/L Chloride 99 93 L (96-114) mmol/L Carbon Dioxide 28 33 H (20-32) mmol/L BUN 31 H 51 H (7-30) mg/dL Creatinine 1.4 1.8 H (0.5-1.5) mg/dL Glucose 105 105 (60-115) mg/dL Calcium 10.3 9.9 (8.4-10.6) mg/dL TSH 2.030 (0.270-4.20) uIU/mL Adrenal panel 06/10/25 06/11/25 Range/Units 12:10 05:42 Sodium 140 139 (135-149) mmol/L Potassium 4.2 3.9 (3.6-5.1) mmol/L Chloride 99 93 L (96-114) mmol/L Carbon Dioxide 28 33 H (20-32) mmol/L BUN 31 H 51 H (7-30) mg/dL Creatinine 1.4 1.8 H (0.5-1.5) mg/dL Glucose 105 105 (60-115) mg/dL Calcium 10.3 9.9 (8.4-10.6) mg/dL Total Bilirubin 2.9 H 2.1 H (0.1-1.5) mg/dL AST 44 H 45 H (12-35) U/L ALT 28 23 (4-35) U/L Alkaline Phosphatase 43 47 (40-150) U/L Total Protein 6.8 7.1 (6.0-8.3) g/dL Albumin 4.0 4.2 (3.3-5.0) g/dL All other labs normal. Progress Note:A&P Assessment and plan (1) Small bowel obstruction: Status: Acute Plan 54-year-old female was liver cirrhosis presents with small-bowel obstruction of unknown etiology. I discussed with the patient my clinical findings. I discussed with the patient that on my CT review there is a concern for possible small bowel incarcerated in the right inguinal hernia. This was not mentioned by radiology. Since patient had tenderness in the right inguinal canal before trying to reduce questionable hernia, and then did not have tenderness in the same area, I recommended to re-CT her without contrast (patient has elevated creatinine) to see if the hernia was reduced. If the hernia is still present on the repeat CT scan, I would recommend transferring patient to tertiary center because of her history of advanced cirrhosis and acute kidney failure. Patient's magnesium was replaced today. Her phosphate remains elevated. We will give her 1 L bolus of normal saline.
[2025-06-11 12:58] LABS: Lactate* 2.7 mmol/L (0.5-1.9)
--- NOTE | 2025-06-11 15:24 | PC.NURSE ---
Patient transferred today at 1425 via non emergent transport to [facility] for surgery. notified. Patient on cont. suction. patent. Belongings sent w/.
--- NOTE | 2025-06-12 04:58 | P.DS_ITS ---
DS: Providers Provider Date Seen: 06/11/25 Date of admission: 06/10/25 15:41 Primary care physician: Not a Local Provider Admitting Clinician: Helen Zamora MD Consults: 06/10/25 16:01 Consult to Physician [CONS] Routine Comment: Consulting Provider: Lisa Guillermo Has provider been notified: Yes 06/10/25 17:26 Consult to Hob Grinder [CONS] Routine Comment: Reason for Consult:: Social Service Consult 06/10/25 17:49 Consult to Nutrition [CONS] Routine Comment: Reason for consult:: Nutritional Consult 06/11/25 10:25 Consult to Physician [CONS] Routine Comment: Consulting Provider: Jaimie Monique Has provider been notified: No Attending Physician on discharge: Orestes Adams MD DS: Diagnosis Discharge Diagnosis (1) Incarcerated hernia: Status: Acute Problem details: -Gen Sx Dr Guillermo recommend transferring patient to tertiary center because of her history of advanced cirrhosis and acute kidney failure. -pt accepted @ [place] (2) Small bowel obstruction: Status: Acute Problem details: - CT scan of the abdomen and pelvis was obtained which demonstrated small bowel obstruction - most likely secondary to incarcerated hernia - conservative measurements for now: NG tube for suction placed, IV fluids, analgesics, antiemetics, ambulate in hallway as tolerated, serial assessments, serial laboratories - general surgery consultation (3) LAMONT (acute kidney injury): Status: Acute Problem details: iv bolus + maint fluids f/up (4) Cirrhosis of liver: Status: Acute Problem details: -patient states that she has history of encephalopathy in the past, history of ascites that needed paracentesis procedure in the past but she mentioned that it has been years since she had that. When I mentioned history of infection in her abdomen (SBP), she said yes she had that but can not remember when. She denies history of vomiting blood/hematemesis and or esophageal varices. -history of using diuretics for her ascites but not currently -resume rifaximin 550 b.i.d. (5) Elevated lactic acid level: Status: Acute Problem details: a little improved w/ iv fluids (6) Hyperphosphatemia: Status: Acute (7) Cholelithiasis: Status: Acute Problem details: - noted on ultrasound from yesterday. No apparent inflammation or obstruction (8) COPD (chronic obstructive pulmonary disease): Status: Acute Problem details: Monitor (9) Tobacco use disorder: Status: Acute Problem details: - normally smokes 1 pack per day - declined nicotine patch we will try again (10) Seizure disorder: Status: Acute Problem details: - normally on levetiracetam 1250 mg twice daily orally, in-hospital change to 1000 mg IV twice daily (11) Dehydration: Status: Acute Problem details: - IV fluids and monitor vitals including orthostatics - Orthostatic blood pressure negative (12) Hyperviscosity syndrome: Status: Acute Problem details: - most likely in great measure due to acute dehydration status, need to monitor closely to make sure were not missing an acute hematologic etiology (13) Protein-calorie malnutrition, moderate: Status: Acute Problem details: - will ask Nutrition to follow while patient is in hospital (14) Unsteady gait: Status: Acute Problem details: pt/ot DS: Summary Hospital Course Hospital Course: pt w/ pmhx of liver cirrhosis, COPD, hyperviscosity synd, hx of EtOH and tobacco use presented w/ abdominal pain. CT scan of the abdomen and pelvis was obtained which demonstrated small bowel obstruction secondary to incarcerated hernia. pt was found to have an Lamont, started tx w/ IVF and inserted an NG tube. Gen Sx Dr Guillermo recommend transferring patient to tertiary center because of her history of advanced cirrhosis and acute kidney failure. pt accepted @ [facility]. Time Spent with Patient Time attestation: Total time spent providing and/or coordinating discharge services: Exam Narrative: Exam Narrative: GENERAL: Comfortable, no acute distress. NG tube in. HEAD AND NECK: Atraumatic, normocephalic CARDIOVASCULAR: RRR. Normal S1, S2. No murmurs. RESPIRATORY: Clear to auscultation B/L. Good air entry B/L. GASTROINTESTINAL: Not distended, tender to palpation. Soft, no rigidity. NEUROLOGY: Alert, awake, oriented X 3 but has lapse of memory. Normal speech. PSYCH: Normal mood, normal affect. Const: Vital Signs, click to edit/add: Vital Signs - 24 hr 06/11/25 07:00 06/11/25 07:00 06/11/25 07:00 Temperature 98.6 F Pulse Rate [Left P ulse Oximeter] 98 98 Pulse Rate [orthos tatic lying Left P ulse Oximeter] Pulse Rate [orthos tatic sitting Left ] Pulse Rate [orthos tatic standing Lef t] Respiratory Rate 18 Blood Pressure [Le ft Arm] 99/69 Blood Pressure [or thostatic lying Le ft Arm] Blood Pressure [or thostatic sitting Left Arm] Blood Pressure [or thostatic standing Left Arm] Pulse Oximetry 91 91 Oxygen Delivery Me thod Room Air Room Air 06/11/25 08:00 06/11/25 10:47 Temperature 98.7 F Pulse Rate [Left P ulse Oximeter] 94 Pulse Rate [orthos tatic lying Left P ulse Oximeter] 100 Pulse Rate [orthos tatic sitting Left ] 114 H Pulse Rate [orthos tatic standing Lef t] 137 H Respiratory Rate 16 Blood Pressure [Le ft Arm] 100/59 L Blood Pressure [or thostatic lying Le ft Arm] 114/78 Blood Pressure [or thostatic sitting Left Arm] 117/82 Blood Pressure [or thostatic standing Left Arm] 117/84 Pulse Oximetry 91 Oxygen Delivery Me thod Room Air DS: Data Data Completed and Pending Labs on day of discharge: Labs from last 24 hours 06/11/25 06/11/25 06/11/25 12:54 09:54 05:42 WBC 6.93 RBC 5.80 H Hgb 16.4 H Hct 48.1 MCV 83 MCH 28 MCHC 34 Plt Count 111 L D-Dimer Quant (PE/DVT) 2.46 H VBG pH 7.448 H VBG pCO2 50 VBG pO2 54.3 H VBG HCO3 35 H Sodium 139 Potassium 3.9 Chloride 93 L Carbon Dioxide 33 H Anion Gap 13 BUN 51 H Creatinine 1.8 H Estimated Creat Clear 27.66 Estimated GFR 33 Glucose 105 Lactate 2.7 H 2.9 H 3.1 H Calcium 9.9 Phosphorus 6.2 H* 6.4 H* Magnesium 1.4 L Total Bilirubin 2.1 H AST 45 H ALT 23 Alkaline Phosphatase 47 C-Reactive Protein 7.2 H Total Protein 7.1 Albumin 4.2 Lipase 197 TSH 2.030 Discharge Plan Discharge Disposition: [facility] Date of Admission: 06/10/25 15:41 Attending Provider on Discharge: Helen Zamora Primary Care Provider: Provider,Not a Local Discharge Orders: Transfer of Care to Other Hospital (ORDER); Ordered 06/11/25 Ordered By: Helen Zamora
== END 2025-06-11 14:25 | disposition short-term general hospital (02) | DRG 254 ==
LOC: ED 11:58 → MEDSURG 15:41
PROVIDERS: Student in an Organized Health Care Education/Training Program; Admitting Provider Internal Medicine; Emergency Provider Student in an Organized Health Care Education/Training Program; Visit Provider Internal Medicine
DX: K40.30 Unilateral inguinal hernia, with obstruction, without gangrene, not specified as recurrent (principal); K74.69 Other cirrhosis of liver; N17.9 Acute kidney failure, unspecified; E44.0 Moderate protein-calorie malnutrition; E86.0 Dehydration; Z68.1 Body mass index [BMI] 19.9 or less, adult; D86.2 Sarcoidosis of lung with sarcoidosis of lymph nodes; R64 Cachexia; M62.50 Muscle wasting and atrophy, not elsewhere classified, unspecified site; K80.20 Calculus of gallbladder without cholecystitis without obstruction; R26.89 Other abnormalities of gait and mobility; E83.39 Other disorders of phosphorus metabolism; I13.0 Hypertensive heart and chronic kidney disease with heart failure and stage 1 through stage 4 chronic kidney disease, or unspecified chronic kidney disease; I50.30 Unspecified diastolic (congestive) heart failure; N18.2 Chronic kidney disease, stage 2 (mild); F41.8 Other specified anxiety disorders; F32.9 Major depressive disorder, single episode, unspecified; Z59.19 Other inadequate housing; Z59.41 Food insecurity; F10.11 Alcohol abuse, in remission; D68.9 Coagulation defect, unspecified; G40.909 Epilepsy, unspecified, not intractable, without status epilepticus; E03.9 Hypothyroidism, unspecified; J44.9 Chronic obstructive pulmonary disease, unspecified; G47.33 Obstructive sleep apnea (adult) (pediatric); F17.210 Nicotine dependence, cigarettes, uncomplicated
CPT/HCPCS: 36415; 71045; 74176; 74177; 80053; 82077; 82248; 82565; 82803; 83605; 83690; 83735; 84100; 84443; 85025; 85027; 85379; 85610; 86140; 87081; 99284; 99285; A9270; J0780; J1953; J2270; J2405; J2470; J3475; J7030; J7120; Q9967

== ENCOUNTER 2025-06-11 14:17 | Outpatient (CLI) | payer MEDICARE, BC, SELFPAY | END 2025-06-11 14:18 | disposition home or self-care (01) | LOC: AMB 06-15 12:42 | PROVIDERS: Visit Provider Family Medicine | DX: K80.20 Calculus of gallbladder without cholecystitis without obstruction (principal); R79.89 Other specified abnormal findings of blood chemistry | CPT/HCPCS: A0425; A0427 ==